=== PATIENT | male | born 1970 | race Caucasian/White ===

== ENCOUNTER 2024-04-14 11:33 | Outpatient (OUT) | payer MEDICARE, SELFPAY ==
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
== END 2024-04-14 11:34 | disposition home or self-care (01) ==
LOC: PM 11:35
PROVIDERS: PCP Nurse Practitioner Family; Visit Provider Anesthesiology
DX: M47.816 Spondylosis without myelopathy or radiculopathy, lumbar region (principal); M47.814 Spondylosis without myelopathy or radiculopathy, thoracic region; M48.02 Spinal stenosis, cervical region
CPT/HCPCS: G0463

== ENCOUNTER 2024-04-28 13:49 | Outpatient (OUT) | payer MEDICARE, SELFPAY ==
--- NOTE | 2024-04-28 15:09 | P.CN_ITS ---
Consult Note: HPI Data of Consult Patient: known to practice within the last 3 years Consult date: 04/28/24 Requesting Physician: Danica Conklin MD Primary Care Provider: Meg Lynn Consult Narrative Reason for consult: neck pain, bilateral arm pain, low back pain Narrative: 53yom who presents for assessment. worsening neck and bilateral upper extremity pain. imaging reviewed, which is consistent with stenosis at c5-6. also recently was in ED for a fall at home. landed on his back and states that he worries something happened to his SCS battery, as it has not been working as before. battery has not been assessed yet by [employer] rep. has continued in chiropractic therapy >6 weeks, without benefit. uses tramadol. denies adverse med side effects. cc:: CC: Danica Conklin MD Review of Systems ROS Status of ROS 10 or more systems reviewed and unremark able except as noted in history and below Meds Home Medications and Allergies Home Medications ?Medication ?Instructions ?Recorded ?Confirmed ?Type amitriptyline 50 mg tablet 50 mg PO DAILY 04/14/24 04/14/24 History amlodipine 2.5 mg tablet 2.5 mg PO DAILY 04/14/24 04/14/24 History atorvastatin 40 mg tablet 40 mg PO DAILY 04/14/24 04/14/24 History cholecalciferol (vitamin D3) 50 10,000 unit PO QWEEK 04/14/24 04/14/24 History mcg (2,000 unit) capsule (D3-2000) fenofibrate 54 mg tablet 54 mg PO DAILY 04/14/24 04/14/24 History ferrous sulfate 325 mg (65 mg 325 mg PO DAILY 04/14/24 04/14/24 History iron) tablet (Feosol) fexofenadine 180 mg tablet 180 mg PO DAILY 04/14/24 04/14/24 History ogyirx-zfvniezo-pbpnxxo 1 cap PO TID 04/14/24 04/14/24 History 36,000-114,000-180,000 unit capsule,delay rel (Creon) mepolizumab 100 mg/mL subcutaneous mg subcut .MONTHLY 04/14/24 History syringe (Nucala) metformin 500 mg tablet 500 mg PO DAILY 04/14/24 04/14/24 History montelukast 10 mg tablet 10 mg PO DAILY 04/14/24 04/14/24 History omeprazole 40 mg capsule,delayed 40 mg PO DAILY 04/14/24 04/14/24 History release prazosin 1 mg capsule 1 mg PO DAILY 04/14/24 04/14/24 History tramadol 100 mg capsule 100 mg PO DAILY 04/14/24 04/14/24 History 24h,extended release(25-75) tramadol 50 mg tablet 100 mg PO BID 04/14/24 04/14/24 History vitamin B complex (Vitamins B 1 cap PO DAILY 04/14/24 04/14/24 History Complex capsule) ziprasidone HCl 40 mg capsule 40 mg PO .QD 04/14/24 04/14/24 History tramadol 100 mg tablet,extended 100 mg PO DAILY PRN pain #30 tabs 04/23/24 Rx release 24 hr tramadol 50 mg tablet 100 mg (2 x 50 mg) PO BID PAIN 04/23/24 Rx #120 tabs Allergies Allergy/AdvReac Type Severity Reaction Status Date / Time acetaminophen [From Tylenol] Allergy Mild Hives Verified 04/14/24 15:54 codeine Allergy Mild Hives Verified 04/14/24 15:54 ibuprofen Allergy Mild Hives Verified 04/14/24 15:54 naproxen [From Aleve] Allergy Mild Vomiting Verified 04/14/24 15:54 ondansetron [From Zofran] Allergy Mild Hives Verified 04/14/24 15:54 Exam Narrative Exam Narrative: Psych-alert and oriented x 3.? Attentive and appropriate, constitutionally normal, displays normal mood and affect per situation.? There are no obvious deficits in memory, reasoning, or intellect.? Skin-no obvious rashes, bruising, or erythema noted to the patient's area of pain.? Extremities-upper extremities are warm with minimal edema and palpable pulses. Cervical- tenderness to palpation noted in the cervical spine and paraspinal musculature.? Pain is elicited with flexion, extension, and lateral rotation of the cervical spine.? Range of motion is diminished due to pain. Facet loading maneuvers are positive.? Strength-unremarkable and within normal limits with the exception to the bila teral biceps. Sensory-no notable sensory deficits in the bilateral upper extremities to touch or pinprick with the exception to decreased sensation to the bilateral C5, 6 dermatomal distribution.? Coordination remains intact.? Gait remains non-antalgic. Assessment and Plan Assessment and Plan (1) Cervical stenosis of spinal canal: Plan 53yom who presents for assessment. failed conservative measures, as noted. in terms of neck pain, given symptoms and imaging, will attempt bilateral c5-6 tfes i under fluoroscopic guidance. he is in agreement. in terms of battery issues, will have him meet up with [facility] to assess. he expressed understanding. meds reviewed, no changes. follow up after procedure.
== END 2024-04-28 13:50 | disposition home or self-care (01) ==
LOC: PM 13:49
PROVIDERS: PCP Nurse Practitioner Family; Visit Provider Anesthesiology
DX: M48.02 Spinal stenosis, cervical region (principal)
CPT/HCPCS: G0463

== ENCOUNTER 2024-05-12 09:03 | Day surgery (SDC) | payer MEDICARE, SELFPAY ==
[2024-05-12 10:49] VITALS: BP 124/83; PULSE 74; TEMP 36.6; O2SAT 99
[2024-05-12 11:01] LABS: Glucometer 118 mg/dL (74-106)
[2024-05-12 11:20] VITALS: BP 126/80; BP 130/84; PULSE 75; PULSE 78; O2SAT 96
--- NOTE | 2024-05-12 11:23 | W.PM.PROCNOT ---
Date of procedure: 05/12/24 Pre-op diagnosis: Pain due to cervical radiculopathy Post-op diagnosis: same as pre-op Procedure: Procedure: Bilateral C5-6 transforaminal epidural steroid injection Medications: Bupivacaine 0.25% 1cc, lidocaine 2% 1cc, dexamethasone 10mg The patient was seen and examined in the preoperative holding area.? Informed consent was obtained and placed on the chart.? Patient was brought to the medical procedure unit and placed in the prone position where a timeout was completed verifying the correct patient, procedure site, position, and planned special equipment using sterile aseptic technique.? Under direct fluoroscopic visualization a 25-gauge Quincke tipped spinal needle was advanced at level left C5-6 to the designated neural foramen where contrast dye was injected to show adequate spread.? There was no evidence of vascular or adverse uptake.? Epidural spread was appreciated.? The above-mentioned injectate was then placed in a 1.5 mL aliquot preceded by negative aspiration.? The needle was removed. The same procedure, at the same level, was completed on the opposite side. ? Patient was taken to the postprocedural recovery area and monitored for an appropriate length of time before found suitable for discharge in the accompaniment of a responsible adult. Anesthesia: Local Surgeon: Danica Conklin Pathology: none sent Condition: stable Disposition: no change
[2024-05-12] MEDS: BUPIVACAINE HCL 0.25% PF 25 MG/10 ML VIAL INJ (11:24)
[2024-05-12] MEDS: IOHEXOL 240 MG/ML - 10 ML VIAL 24 MG INJ (11:25)
[2024-05-12] MEDS: LIDOCAINE HCL 2% 400 MG/20 ML MDV 3 ML INJ (11:25)
[2024-05-12] MEDS: DEXAMETHASONE SOD PHOS 10 MG/ML VIAL INJ (11:25)
== END 2024-05-12 11:31 | disposition home or self-care (01) ==
PROVIDERS: PCP Nurse Practitioner Family; Visit Provider Anesthesiology
DX: M54.12 Radiculopathy, cervical region (principal); Z79.84 Long term (current) use of oral hypoglycemic drugs
CPT/HCPCS: 36415; 64479; 82948; J0665; J1100; Q9966

== ENCOUNTER 2024-05-22 11:09 | Outpatient (OUT) | payer MEDICARE, SELFPAY ==
--- NOTE | 2024-05-22 11:34 | P.CN_ITS ---
Consult Note: HPI Data of Consult Patient: known to practice within the last 3 years Consult date: 04/28/24 Requesting Physician: Vanessa Chavez NP Primary Care Provider: Meg Lynn Consult Narrative Reason for consult: neck pain, bilateral arm pain, low back pain Narrative: 53yom who presents for assessment. worsening neck and bilateral upper extremity pain. imaging reviewed, which is consistent with stenosis at c5-6. has continued in chiropractic therapy >6 weeks, without benefit. uses tramadol. denies adverse med side effects. recent bilateral C5-6 TFESI >50% improvement ongoing. Patient reports SCS providing mild relief at this time, feels that there is no issue with the device it has reset itself. cc:: CC: Vanessa Chavez NP Review of Systems ROS Status of ROS 10 or more systems reviewed and unremark able except as noted in history and below Musculoskeletal Reports: back pain and neck pain Meds Home Medications and Allergies Home Medications ?Medication ?Instructions ?Recorded ?Confirmed ?Type amitriptyline 50 mg tablet 50 mg PO DAILY 04/14/24 05/12/24 History amlodipine 2.5 mg tablet 2.5 mg PO DAILY 04/14/24 05/12/24 History atorvastatin 40 mg tablet 40 mg PO DAILY 04/14/24 05/12/24 History cholecalciferol (vitamin D3) 50 10,000 unit PO QWEEK 04/14/24 05/12/24 History mcg (2,000 unit) capsule (D3-2000) fenofibrate 54 mg tablet 54 mg PO DAILY 04/14/24 05/12/24 History ferrous sulfate 325 mg (65 mg 325 mg PO DAILY 04/14/24 05/12/24 History iron) tablet (Feosol) fexofenadine 180 mg tablet 180 mg PO DAILY 04/14/24 05/12/24 History fcaxnj-uzpctswt-ljwkuou 1 cap PO TID 04/14/24 05/12/24 History 36,000-114,000-180,000 unit capsule,delay rel (Creon) mepolizumab 100 mg/mL subcutaneous mg subcut .MONTHLY 04/14/24 History syringe (Nucala) metformin 500 mg tablet 500 mg PO DAILY 04/14/24 05/12/24 History montelukast 10 mg tablet 10 mg PO DAILY 04/14/24 05/12/24 History omeprazole 40 mg capsule,delayed 40 mg PO DAILY 04/14/24 05/12/24 History release prazosin 1 mg capsule 1 mg PO DAILY 04/14/24 05/12/24 History tramadol 100 mg capsule 100 mg PO DAILY 04/14/24 05/12/24 History 24h,extended release(25-75) tramadol 50 mg tablet 100 mg PO BID 04/14/24 05/12/24 History vitamin B complex (Vitamins B 1 cap PO DAILY 04/14/24 05/12/24 History Complex capsule) ziprasidone HCl 40 mg capsule 40 mg PO .QD 04/14/24 05/12/24 History tramadol 100 mg tablet,extended 100 mg PO DAILY PRN pain #30 tabs 04/23/24 05/12/24 Rx release 24 hr tramadol 50 mg tablet 100 mg (2 x 50 mg) PO BID PAIN 04/23/24 05/12/24 Rx #120 tabs tramadol 100 mg tablet,extended 100 mg PO DAILY PRN pain #30 tabs 05/22/24 Rx release 24 hr tramadol 50 mg tablet 100 mg (2 x 50 mg) PO BID PRN pain 05/22/24 Rx #120 tabs Allergies Allergy/AdvReac Type Severity Reaction Status Date / Time acetaminophen [From Tylenol] Allergy Mild Hives Verified 05/12/24 10:46 codeine Allergy Mild Hives Verified 05/12/24 10:46 ibuprofen Allergy Mild Hives Verified 05/12/24 10:46 naproxen [From Aleve] Allergy Mild Vomiting Verified 05/12/24 10:46 ondansetron [From Zofran] Allergy Mild Hives Verified 05/12/24 10:46 Exam Narrative Exam Narrative: Psych-alert and oriented x 3.? Attentive and appropriate, constitutionally normal, displays normal mood and affect per situation.? There are no obvious deficits in memory, reasoning, or intellect.? Skin-no obvious rashes, bruising, or erythema noted to the patient's area of pain.? Extremities-upper extremities are warm with minimal edema and palpable pulses. Cervical- tenderness to palpation noted in the cervical spine and paraspinal musculature.? Pain is elicited with flexion, extension, and lateral rotation of the cervical spine.? Range of motion is diminished due to pain. Facet loading maneuvers are positive.? Strength-unremarkable and within normal limits with the exception to the bilateral biceps. Sensory-no notable sensory deficits in the bilateral upper extremities to touch or pinprick Coordination remains intact.? Gait remains non-antalgic. Results Additional Findings Additional findings: If on a controlled substance or opioids, I have checked an [place] report on this patient and there are no aberrancies noted in the prescribing history.??If on a controlled substance or opioid a drug screen was completed and reviewed within the last year, and if there has not been a drug screen completed we ordered one today to monitor higher risk, state monitored pain medication use. As part of providing excellent, safe, comprehensive care, the following was completed at our patient's visit: 1. A medication reconciliation and review to ensure accurate knowledge of current/active medications, including asking our patients to inform us about any afqo-lrx-czgweav medications or herbal remedies/nutritional supplements/alternative remedies. 2. A review to specifically ensure our patients have had annual screening for screening for depression, screening for tobacco use, and screening for unhealthy alcohol use. For concerning screenings had a discussion with the patient, provided patient education, and recommended follow-up with primary care provider when appropriate. If patient noted with a risk of falling, they received education on strength, gait, and balance training to prevent future risk of falling. Assessment and Plan Assessment and Plan (1) Cervical stenosis of spinal canal: (2) Chronic use of opiate drug for therapeutic purpose: (3) Lumbar spondylosis: (4) Thoracic spondylosis: (5) Failed back syndrome: (6) Insomnia: (7) PTSD (post-traumatic stress disorder): (8) Chronic prescription benzodiazepine use: Plan risks vs benefits of current medication regimen discussed, patient has been on his current regimen for many years without side effects. patient has narcan available at home. Patient is on clonazepam 1/2-1mg HS due to chronic severe insomnia refractory to multiple medications and it is his only relief to assist in sleep. Patient has failed numerous non opioid medications and has had back surgery and spinal cord stimulator placed yet continues to have moderate to severe pain requiring opioids. continue current medication regimen continue f/u with [facility] for spinal cord stimulator setting adjustments continue f/u with oncology team f/u 3 months, sooner if needed
== END 2024-05-22 11:10 | disposition home or self-care (01) ==
PROVIDERS: PCP Nurse Practitioner Family; Visit Provider Nurse Practitioner
DX: M48.02 Spinal stenosis, cervical region (principal); Z79.891 Long term (current) use of opiate analgesic; M47.816 Spondylosis without myelopathy or radiculopathy, lumbar region; M47.814 Spondylosis without myelopathy or radiculopathy, thoracic region; M96.1 Postlaminectomy syndrome, not elsewhere classified; G47.00 Insomnia, unspecified; F43.10 Post-traumatic stress disorder, unspecified; Z79.899 Other long term (current) drug therapy
CPT/HCPCS: G0463

== ENCOUNTER 2024-08-27 10:31 | Outpatient (OUT) | payer MEDICARE, SELFPAY ==
--- NOTE | 2024-08-27 12:25 | PM.CN ---
Consult Note: HPI Data of Consult Patient: known to practice within the last 3 years Consult date: 04/28/24 Requesting Physician: Vanessa Chavez NP Primary Care Provider: Meg Lynn Consult Narrative Reason for consult: neck pain, bilateral arm pain, low back pain Narrative: 53yom who presents for assessment. worsening neck and bilateral upper extremity pain. imaging reviewed, which is consistent with stenosis at c5-6. has continued in chiropractic therapy >6 weeks, without benefit. uses tramadol. denies adverse med side effects. recent bilateral C5-6 TFESI >50% improvement ongoing. Patient reports SCS providing mild relief at this time, feels that there is no issue with the device it has reset itself. upcoming pancreatectomy/potential spleenectomy tomorrow with [facility], expects to be hospitalized for 1 week. cc:: CC: Vanessa Chavez NP Review of Systems ROS Status of ROS 10 or more systems reviewed and unremarkable except as noted in history and below Musculoskeletal Reports: back pain, neck pain and extremity pain Meds Home Medications and Allergies Home Medications ?Medication ?Instructions ?Recorded ?Confirmed ?Type amitriptyline 50 mg tablet 50 mg PO DAILY 04/14/24 05/12/24 History amlodipine 2.5 mg tablet 2.5 mg PO DAILY 04/14/24 05/12/24 History atorvastatin 40 mg tablet 40 mg PO DAILY 04/14/24 05/12/24 History cholecalciferol (vitamin D3) 50 10,000 unit PO QWEEK 04/14/24 05/12/24 History mcg (2,000 unit) capsule (D3-2000) fenofibrate 54 mg tablet 54 mg PO DAILY 04/14/24 05/12/24 History ferrous sulfate 325 mg (65 mg 325 mg PO DAILY 04/14/24 05/12/24 History iron) tablet (Feosol) fexofenadine 180 mg tablet 180 mg PO DAILY 04/14/24 05/12/24 History oftjqe-infobaqt-cimtods 1 cap PO TID 04/14/24 05/12/24 History 36,000-114,000-180,000 unit capsule,delay rel (Creon) mepolizumab 100 mg/mL subcutaneous mg subcut .MONTHLY 04/14/24 History syringe (Nucala) metformin 500 mg tablet 500 mg PO DAILY 04/14/24 05/12/24 History montelukast 10 mg tablet 10 mg PO DAILY 04/14/24 05/12/24 History omeprazole 40 mg capsule,delayed 40 mg PO DAILY 04/14/24 05/12/24 History release prazosin 1 mg capsule 1 mg PO DAILY 04/14/24 05/12/24 History vitamin B complex (Vitamins B 1 cap PO DAILY 04/14/24 05/12/24 History Complex capsule) ziprasidone HCl 40 mg capsule 40 mg PO .QD 04/14/24 05/12/24 History tramadol 100 mg tablet,extended 100 mg PO DAILY PRN pain #30 tabs 05/22/24 Rx release 24 hr tramadol 100 mg tablet,extended 100 mg PO DAILY PRN pain #30 tabs 05/22/24 Rx release 24 hr tramadol 50 mg tablet 100 mg (2 x 50 mg) PO BID PRN pain 05/22/24 Rx #120 tabs tramadol 100 mg tablet,extended 100 mg PO .HS PRN pain #30 tabs 06/24/24 Rx release 24 hr tramadol 50 mg tablet See Rx Instructions .Route 06/24/24 Rx .COMPLEX PRN pain #120 tabs tramadol 100 mg tablet,extended 100 mg PO DAILY #30 tabs 07/24/24 Rx release 24 hr tramadol 50 mg tablet 100 mg (2 x 50 mg) PO BID PRN pain 07/24/24 Rx #120 tabs Allergies Allergy/AdvReac Type Severity Reaction Status Date / Time acetaminophen (From Tylenol) Allergy Mild Hives Verified 05/12/24 10:46 codeine Allergy Mild Hives Verified 05/12/24 10:46 ibuprofen Allergy Mild Hives Verified 05/12/24 10:46 naproxen (From Aleve) Allergy Mild Vomiting Verified 05/12/24 10:46 ondansetron (From Zofran) Allergy Mild Hives Verified 05/12/24 10:46 Exam Narrative Exam Narrative: Psych-alert and oriented x 3.? Attentive and appropriate, constitutionally normal, displays normal mood and affect per situation.? There are no obvious deficits in memory, reasoning, or intellect.? Skin-no obvious rashes, bruising, or erythema noted to the patient's area of pain.? Extremities-upper extremities are warm with minimal edema and palpable pulses. Cervical- tenderness to palpation noted in the cervical spine and paraspinal musculature.? Pain is elicited with flexion, extension, and lateral rotation of the cervical spine.? Range of motion is diminished due to pain. Facet loading maneuvers are positive.? Strength-unremarkable and within normal limits with the exception to the bilateral biceps. Sensory-no notable sensory deficits in the bilateral upper extremities to touch or pinprick Coordination remains intact.? Gait remains non-antalgic. Results Additional Findings Additional findings: If on a controlled substance or opioids, I have checked an [place] report on this patient and there are no aberrancies noted in the prescribing history.??If on a controlled substance or opioid a drug screen was completed and reviewed within the last year, and if there has not been a drug screen completed we ordered one today to monitor higher risk, state monitored pain medication use. As part of providing excellent, safe, comprehensive care, the following was completed at our patient's visit: 1. A medication reconciliation and review to ensure accurate knowledge of current/active medications, including asking our patients to inform us about any [id number] medications or herbal remedies/nutritional supplements/alternative remedies. 2. A review to specifically ensure our patients have had annual screening for screening for depression, screening for tobacco use, and screening for unhealthy alcohol use. For concerning screenings had a discussion with the patient, provided patient education, and recommended follow-up with primary care provider when appropriate. If patient noted with a risk of falling, they received education on strength, gait, and balance training to prevent future risk of falling. Assessment and Plan Assessment and Plan (1) Cervical stenosis of spinal canal: (2) Chronic use of opiate drug for therapeutic purpose: (3) Lumbar spondylosis: (4) Thoracic spondylosis: (5) Failed back syndrome: (6) Insomnia: (7) PTSD (post-traumatic stress disorder): (8) Chronic prescription benzodiazepine use: Plan risks vs benefits of current medication regimen discussed, patient has been on his current regimen for many years without side effects. patient has narcan available at home. Patient is on clonazepam 1/2-1mg HS due to chronic severe insomnia refractory to multiple medications and it is his only relief to assist in sleep. Patient has failed numerous non opioid medications and has had back surgery and spinal cord stimulator placed yet continues to have moderate to severe pain requiring opioids. continue current medication regimen continue f/u with [facility] for spinal cord stimulator setting adjustments PRN pt verbalized agreement to DC tramadol and allow surgeons to manage post-op pain, will call our office with updates on care plan f/u 6 weeks
== END 2024-08-27 10:32 | disposition home or self-care (01) ==
PROVIDERS: PCP Nurse Practitioner Family; Visit Provider Nurse Practitioner
DX: M48.02 Spinal stenosis, cervical region (principal); Z79.891 Long term (current) use of opiate analgesic; M47.816 Spondylosis without myelopathy or radiculopathy, lumbar region; M47.814 Spondylosis without myelopathy or radiculopathy, thoracic region; M96.1 Postlaminectomy syndrome, not elsewhere classified; G47.00 Insomnia, unspecified; F43.10 Post-traumatic stress disorder, unspecified
CPT/HCPCS: G0463

== ENCOUNTER 2024-10-08 09:56 | Outpatient (OUT) | payer MEDICARE, SELFPAY ==
--- OUTSIDE RECORDS SUMMARY | 2024-10-08 10:18 | XMS_ITS | CCD ---
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 Name Role Phone DEMARCUS REID Primary Care Unavailable JEANETTE, DEMARCUS Primary Care Unavailable JEANETTE, DEMARCUS Primary Care Unavailable JEANETTE, DEMARCUS Primary Care Unavailable JEANETTE, DEMARCUS Primary Care Unavailable JEANETTE, DEMARCUS Primary Care Unavailable JEANETTE, DEMARCUS Primary Care Unavailable JEANETTE, DEMARCUS Primary Care Unavailable JEANETTE, DEMARCUS Primary Care Unavailable JEANETTE, DEMARCSU Primary Care Unavailable JEANETTE, DEMARCUS Primary Care Unavailable JEANETTE, DEMARCUS Primary Care Unavailable JEANETTE, DEMARCUS Primary Care Unavailable Gian CARROTER - Eliana MUSTAFA Primary Care Provid er Eliana Morales Primary Care Provider CHAYITO, JOANA N Attending Unavailable GIAN, ELIANA Palomo Referring Unavailable GIAN, ELIANA Palomo Primary Care Unavailable MOGHAL, JOANA N Admitting Unavailable MOGHAL, JOANA N Attending Unavailable MOGHAL, JOANA N Referring Unavailable GIAN, ELIANA Palomo Primary Care Unavailable MOGHAL, JOANA N Attending Unavailable MOGHAL, JOANA N Referring Unavailable GIAN, ELIANA Palomo Primary Care Unavailable MIGDALIA ART Attending Unavailable GIAN, ELIANA Palomo Primary Care Unavailable MOGHAL, JOANA N Attending Unavailable GIAN, ELIANA Palomo Referring Unavailable GIAN, ELIANA Palomo Primary Care Unavailable MOGHAL, JOANA N Attending Unavailable MOGHAL, JOANA N Referring Unavailable GIAN, ELIANA Palomo Primary Care Unavailable FABIOLA ROMANO Attending Unavailable GIAN, ELIANA Palomo Referring Unavailable GIAN, ELIANA Palomo Primary Care Unavailable FABIOLA ROMANO Attending Unavailable GIAN, ELIANA Palomo Referring Unavailable GIAN, ELIANA Palomo Primary Care Unavailable MOGHAL, JOANA N Admitting Unavailable MOGHAL, JOANA N Attending Unavailable MOGHAL, JOANA N Referring Unavailable GIAN, ELIANA Palomo Primary Care Unavailable MOGHAL, JOANA N Attending Unavailable MOGHAL, JOANA N Referring Unavailable GIAN, ELIANA Palomo Primary Care Unavailable MOGHAL, JOANA N Referring Unavailable GIAN, ELIANA Palomo Primary Care Unavailable MOGHAL, JOANA N Attending Unavailable GIAN, ELIANA Palomo Referring Unavailable GIAN, ELIANA Palomo Primary Care Unavailable FABIOLA ROMANO M Referring Unavailable GIAN, ELIANA Palomo Primary Care Unavailable ANNALISE, LAURI Romero Admitting Unavailable ANNALISE, LAURI Romero Attending Unavailable REF PROV, NOT IN SYSTEM Referring Unavaila ble GIAN, ELIANA Palomo Primary Care Unavailable BASISTA, LAURI Harper Consulting Unavailable Gian [facility] Primary Care Unava ilable Mickie REARDON, Rob Villagomez Attending Unavailable Gian [facility] Primary Care Unava ilable Mickie REARDON, Rob Villagomez Attending Unavailable Gian [facility] Primary Care Unava ilable Samson REARDON, Wesly Crawford Attending Unavailable Gian [facility] Primary Care Unava ilable Jm REARDON, Jacqueline Ruiz Attending Mariajosevai getachew Schultz MD, Benoit Nagy Consulting Ethani getachew Schilling MD, Adelina Consulting Unavailable [facility] Primary Care Unava ilable Samson REARDON, Wesly Crawford Attending Unavailable Gian [facility] Primary Care Unava ilable Rubin REARDON, Danica Arnold Attending Unavailable [facility] Primary Care Unava ilable Rubin REARDON, Danica Arnold Attending Unavailable Rubin REARDON, Danica Arnold Attending Unavailable [facility] Primary Care Unava ilable GIAN, ELIANA Palomo Referring Unavailable GIAN, ELIANA Palomo Primary Care Unavailable Cristal Paul Attending Unavailable LUIS F APONTE Admitting Unavailable LUIS F APONTE Attending Unavailable WESLY DAVIES Referring Unavailable Gian [facility] Primary Care [facility] er Samson REARDON, Wesly Crawford Unavailable [phone] Wesly Davies MD Unavailable Gian [facility], [facility] Primary Care Provider GIAN, ELIANA Palomo Primary Care Unavailable LISET TEGAN Henao Attending Unavailable GIAN, ELIANA Palomo Primary Care Unavailable SHE MEAD Referring Unavailable GIAN, ELIANA Palomo Referring Unavailable GIAN, ELIANA Palomo Primary Care Unavailable MAX DELONG JR Attending Unavailable GIAN, ELIANA Palomo Primary Care Unavailable GIAN, ELIANA Palomo Primary Care Unavailable GIAN, ELIANA Palomo Primary Care Unavailable DARIUSZ LAMBERT Attending Unavailable KRISTYN MILLER Attending Unavailable GIAN, ELIANA Palomo Primary Care Unavailable OCTAVIO CHATTERJEE Referring Unavailable GIAN, ELIANA L Primary Care Unavailable GIAN, ELIANA Palomo Primary Care Unavailable LAUREN GUTIERREZ Referring Unavailable GIAN, ELIANA Palomo Primary Care Unavailable MIGHT, SARY Romero Referring Unavailable GIAN, ELIANA Palomo Primary Care Unavailable MIGHTSARY Referring Unavailable GIAN, ELIANA Palomo Primary Care Unavailable GIAN, ELIANA L Referring Unavailable GIAN, ELIANA Palomo Primary Care Unavailable GIAN, ELIANA Palomo Referring Unavailable GIAN, ELIANA Palomo Primary Care Unavailable GIAN, ELIANA Palomo Referring Unavailable IACOBIRVIN Admitting Unavailable IACIRVIN PARKER Attending Unavailable GIAN, ELIANA Palomo Primary Care Unavailable SOFIA SMITH Attending Unavailable GIAN, ELIANA Palomo Primary Care Unavailable GIAN, ELIANA Palomo Primary Care Unavailable GIAN, ELIANA Palomo Primary Care Unavailable GIEDRAITIS, ANDRIUS Referring Unavailable GIAN, ELIANA Palomo Primary Care Unavailable SOFIA SMITH Attending Unavailable GIAN, ELIANA Palomo Primary Care Unavailable MANJITTAMIKO BRITO Admitting Unavailable TAMIKO SARAVIA Attending Unavailable GIAN, ELIANA Palomo Primary Care Unavailable DAMION BRAVO Attending Unavailable KAJAL STEWART Attending Unavailable JACOSBON, R KASSIDY Referring Unavailable JACOBSON, R KASSIDY Referring Unavailable JACOBSON, R KASSIDY Attending Unavailable JACOBSON, R KASSIDY Attending Unavailable JACOBSON, R KASSIDY Admitting Unavailable GIAN, ELIANA Palomo Primary Care Unavailable GIAN, ELIANA Palomo Primary Care Unavailable JACOBSON, R KASSIDY Attending Unavailable MODESTO DUNLAP Referring Unavailable GIAN, ELIANA Palomo Primary Care Unavailable DAMION BRAVO Attending Unavailable JACOBSON, R KASSIDY Referring Unavailable EMILEE SUAREZ Attending Unavaila ble GIAN, ELIANA Palomo Primary Care Unavailable JACOBSON, R KASSIDY Referring Unavailable IGAN, ELIANA Palomo Primary Care Unavailable JACOBSON, R KASSIDY Referring Unavailable GIAN, ELIANA Palomo Primary Care Unavailable GIAN, ELIANA Palomo Primary Care Unavailable JACOBSON, R KASSIDY Referring Unavailable GIAN, ELIANA Palomo Primary Care Unavailable JACOBSON, R KASSIDY Referring Unavailable ELIANA SPRINGER Primary Care Unavailable Jesus JACOBSON Referring Unavailable Allergies Allergy Classification Reported Allergen(s) Allergy Type Date of Onset Reaction(s) Facility Acetaminophen / Codeine (2 sources) Acetaminophen / Codeine Drug Allergy 4 Hives [facility] Cat Hair Extract (2 sources) Cat Hair Extract Drug Allergy 0 [facility] Work Phone: NSAIDs (2 sources) Ibuprofen Drug Allergy 4 Diarrhea [facility] Ondansetron (2 sources) Ondansetron Drug Allergy 9 Anaphylaxis [facility] Opioid Agonists (2 sources) Codeine Drug Allergy 8 Hives, Nausea And Vomiting [facility] Work Phone: (12 sources) Cat Hair Extract Drug Allergy 0 [facility] Work Phone: (20 sources) Codeine; Translations: [CODEINE] Drug Allergy 8 Hives, Nausea And Vomiting [facility] Work Phone: (20 sources) Ondansetron; Translations: [ONDANSETRON HCL] Drug Allergy 9 Nausea Only, Anaphylaxis [facility] (14 sources) Acetaminophen / Codeine; Translations: [ACETAMINOPHEN-CO DEINE] Drug Allergy 4 Hives, Other (See Comments) [facility] (14 sources) Ibuprofen; Translations: [IBUPROFEN] Drug Allergy 4 Other (See Comments), Diarrhea [facility] (1 source) Cat; Translations: [Cats] Propensity to adverse reactions (disorder) [facility] Repository (1 source) Ondansetron; Translations: [Zofran] Drug Allergy [facility] Rep[facility] (20 sources) Ondansetron; Translations: [ONDANSETRON] Drug Allergy 1 Hives [facility] Repository Medications Current Medications Medication Drug Class(es) Dates Sig (Normalized) Sig (Original) acetaminophen 325 mg / HYDROcodone bitartrate 5 mg oral tablet (1 source) Opioid Agonist Start: 08-11-2024 End: 08-14-2024 HYDROcodone-aceta minophen (NORCO) 5-325 MG per tablet Indications: Left-sided chest wall pain , Rib contusion, left, sequela Take 1 tablet by mouth every 8 hours as needed for Pain (moderate severe) for up to 3 days. Intended supply: 7 days. Take lowest dose possible to manage pain Max Daily Amount: 3 tablets 9 tablet 08/11/2024 08/14/2024 Active albuterol 0.83 mg/ml inhalation solution (20 sources) beta2-Adrenergic Agonist Start: 07-03-2024 take 2.5 mg by inhalation every four hours as needed albuterol (PROVENTIL) 2.5 mg /3 mL (0.083 %) nebulizer solution Use 2.5 mg via nebulizer every 4 hours as needed. 07/03/2024 Active Start: 03-25-2024 take 2 puff(s) by in halation every six hours as needed ProAir RespiClick 90 mcg/actuation breath activated (albuterol sulfate) 2 puffs, Inhale, q6hr, PRN, # 1 EA, 0 Refill(s), Pharmacy: [email or web address] [place] [address] 03/25/2024 Active Start: 02-06-2024 take 2 puff(s) by in halation every six hours as needed albuterol sulfate (PROAIR RESPICLICK) 108 (90 Base) MCG/ACT aerosol powder inhalation Indications: Asthma, unspecified asthma severity, unspecified whether complicated, unspecified whether persistent 2 puffs, Inhale, q6hr, PRN, # 1 EA, 0 Refill(s), Pharmacy: [facility] 1 each 0 02/06/2024 Active Start: 10-03-2021 take 1 puff(s) by in halation every six hours as needed VENTOLIN HFA 90 mcg/actuation inhaler Inhale 1 Puff as instructed every 6 hours as needed. 10/03/2021 Active Start: 12-13-2018 take 2 puff(s) by in halation every six hours as needed albuterol sulfate (PROAIR RESPICLICK) 108 (90 Base) MCG/ACT aerosol powder inhalation 2 puffs, Inhale, q6hr, PRN, # 1 EA, 0 Refill(s), Pharmacy: [address] 1 Inhaler 0 12/13/2018 Active amitriptyline hydrochloride 50 mg oral tablet (20 sources) Tricyclic Antidepressant Start: 01-23-2018 take 1 tablet by mouth once daily at bedtime amitriptyline (ELAVIL) 50 mg tablet Take 1 tablet by mouth daily at bedtime. 01/23/2018 Active amLODIPine 2.5 mg oral tablet (20 sources) Dihydropyridine Calcium Channel Kandi Start: 10-31-2021 take 1 tablet by mouth once daily amLODIPine (NORVASC) 2.5 mg tablet Take 1 tablet by mouth once daily. 10/31/2021 Active AMLODIPINE BESYLATE, BULK, MISC (6 sources) AMLODIPINE BESYLATE, BULK, MISC by miscellaneous route. 0 Active amoxicillin 875 mg / clavulanate 125 mg oral tablet (1 source) Penicillin-class Antibacterial Start: 01-25-2024 take 1 tablet by mouth twice daily amoxicillin-clavul anate (AUGMENTIN) 875-125 MG per tablet Take 1 tablet by mouth 2 times daily 0 01/25/2024 Active amylase 495932 unt / lipase 25503 unt / protease 969213 unt delayed release oral capsule (20 sources) Start: 08-04-2024 ujldrb-souxalfg-wy ylase (CREON 36) 36,000-114,000- 180,000 unit delayed release capsule Take 3 caps by mouth 3 times daily with meals and 1 cap with each snack (2) 330 capsule 11 08/04/2024 Active Start: 02-08-2024 take 1 capsule by n[place] ut once daily awuwuv-jroeakie-cvcxzuf (CREON) 41765-659563 units CPEP delayed release capsule Indications: Chronic pancreatitis, unspecified pancreatitis type (HCC) , Medication refill Creon 39596 units oral delayed release capsule: TAKE 2 CAPSULES WITH MEALS (3 TIMES A DAY) AND 1 CAPSULE WITH SNACKS (1 DAILY). 200 capsule 1 02/08/2024 Active Start: 01-03-2024 take 1 capsule by mo uth once daily qnrbyj-zdadmavv-dczefbw (CREON) 36675-322749 units CPEP delayed release capsule Indications: Chronic pancreatitis, unspecified pancreatitis type (HCC) , Medication refill Creon 37884 units oral delayed release capsule: TAKE 2 CAPSULES WITH MEALS (3 TIMES A DAY) AND 1 CAPSULE WITH SNACKS (1 DAILY). 180 capsule 1 01/03/2024 Active Start: 11-12-2023 take 1 capsule by [facility] once daily ogoacg-ghcdtlhe-wnoaarv (CREON) 49837-897030 units CPEP delayed release capsule Indications: Chronic pancreatitis, unspecified pancreatitis type (HCC) , Medication refill Creon 63982 units oral delayed release capsule: TAKE 2 CAPSULES WITH MEALS (3 TIMES A DAY) AND 1 CAPSULE WITH SNACKS (1 DAILY). 180 capsule 0 11/12/2023 Active Start: 05-24-2023 take 1 capsule by [facility] three times daily at mealtime bdkhxd-fndanrvu-dgxisys (CREON) 24802-770766 units CPEP delayed release capsule Take 1 capsule by mouth 3 times daily (with meals) 180 capsule 0 05/24/2023 Active atorvastatin 40 mg oral tablet (20 sources) HMG-CoA Reductase Inhibitor Start: 01-03-2021 take 1 tablet by mouth once daily atorvastatin (LIPITOR) 40 mg tablet Take 1 tablet by mouth once daily. 01/03/2021 Active azelastine hydrochloride 0.137 mg/actuat metered dose nasal spray (20 sources) Histamine-1 Receptor Antagonist take 1 spray(s) nasal route twice daily azelastine 0.1% nasal spray Use 1 [place] in each nostril two times a day. Active b complex vitamins capsule (14 sources) take 1 capsule by mouth once daily b complex vitamins capsule Take 1 capsule by mouth daily Active take 1 capsule by mouth once gaudencio [address] b complex vitamins capsule Take 1 capsule by mouth daily 0 Active B-complex with vitamin C (ALLBEE WITH C) tablet (20 sources) take 1 tablet by rhianna th once daily in the morning B-complex with vitamin C (ALLBEE WITH C) tablet Take 1 tablet by mouth every morning. Suspended take 1 tablet by rhianna th once daily in the morning B-complex with vitamin C (ALLBEE WITH C) tablet Take 1 tablet by mouth every morning. Active B-complex with vitamin C tablet (6 sources) take 1 tablet by mouth in the morning B-complex with vitamin C tablet Take 1 tablet by mouth in the morning. 0 Active bisacodyl 10 mg rectal suppository (14 sources) Stimulant Laxative Start: bisacodyl (DULCOLAX) 10 mg supp 1 Suppository by RECTAL route once daily as needed for constipation. 09/04/2024 Active Blood-Glucose Meter (20 sources) Start: Blood-Glucose Meter Indications: Post-pancreatectomy diabetes (HCC) Use to check sugars once a day 1 Each 08/22/2024 Suspended Start: 08-22-2024 Blood-Glucose Meter Indications: Post-pancreatectomy diabetes (HCC) Use to check sugars once a day 1 Each 08/22/2024 Active cholecalciferol 1.25 mg oral capsule (20 sources) Vitamin D Start: 06-18-2024 Cholecalcifero l (VITAMIN D3) 1.25 MG (70207 UT) CAPS Indications: Other fatigue Take 1 capsule by mouth once a week Patient takes 1 time weekly on Fridays 12 capsule 3 06/18/2024 Active Start: 11-13-2023 cholecalcifero l, Vitamin D3, (VITAMIN D3) 1,250 mcg (50,000 unit) cap capsule Take 50,000 Units by mouth. 11/13/2023 Active Start: 11-13-2023 Cholecalcifero l (VITAMIN D3) 1.25 MG (86341 UT) CAPS Take 1 capsule by mouth once a week Patient takes 1 time weekly on Fridays 12 capsule 3 11/13/2023 Active Cholecalciferol (VITAMIN D3) 1.25 MG (93616 UT) CAPS Take by mouth Patient takes 1 time weekly on Fridays 0 Active clonazePAM 0.5 mg oral tablet (20 sources) Benzodiazepine take 1 tablet by mouth every twelve hours as needed clonazePAM (KLONOPIN) 0.5 mg tablet Take 0.5 mg by mouth two times a day as needed. Active take 1 tablet by mouth once [place] clonazePAM (KLONOPIN) 0.5 MG tablet Take 1 tablet by mouth daily. morning Active clonazePAM (KLON OPIN) 1 MG tablet 2 tablets at bedtime. Active dicyclomine hydrochloride 20 mg oral tablet (9 sources) Anticholinergic Start: 04-03-2024 take 1 tablet by mouth three times daily dicyclomine (BENTYL) 20 MG tablet Indications: Diarrhea, unspecified type Take 1 tablet by mouth 3 times daily 30 tablet 04/03/2024 Active doxycycline hyclate 100 mg oral tablet (2 sources) Tetracycline-class Drug Start: 07-30-2024 End: 08-09-2024 take 1 tablet by mouth twice daily doxycycline hyclate (VIBRA-TABS) 100 MG tablet Indications: Acute non-recurrent pansinusitis Take 1 tablet by mouth 2 times daily for 10 days 20 tablet 07/30/2024 08/09/2024 Active ergocalciferol 1.25 mg oral capsule (9 sources) Provitamin D2 Compound Start: 06-17-2023 take 1 capsule by mouth every week vitamin D (ERGOCALCIFEROL) 1.25 MG (15876 UT) CAPS capsule Take 1 capsule by mouth once a week 0 06/17/2023 Active famotidine 20 mg oral tablet (10 sources) Histamine-2 Receptor Antagonist Start: 02-08-2024 take 1 tablet by mouth twice daily famotidine (PEPCID) 20 MG tablet Take 1 tablet by mouth 2 times daily 60 tablet 02/08/2024 Active fenofibrate 54 mg oral tablet (20 sources) Peroxisome Proliferator Receptor alpha Agonist Start: 06-28-2022 take 1 tablet by mouth once daily Fenofibrate (LOFIBRA) 54 mg tablet Take 1 tablet by mouth once daily. 06/28/2022 Active ferrous sulfate 325 mg oral tablet (20 sources) Start: 11-13-2023 take 1 tablet by mouth once daily ferrous sulfate 325 mg (65 mg iron) tablet Take 325 mg by mouth once daily. 11/13/2023 Active fexofenadine hydrochloride 180 mg oral tablet (20 sources) Histamine-1 Receptor Antagonist Start: 06-18-2024 take 1 tablet by mouth at bedtime fexofenadine (CHAKA) 180 MG tablet Take 1 tablet by mouth at bedtime 90 tablet 1 06/18/2024 Active take 1 tablet by rhianna th every twelve hours fexofenadine (CHAKA) 60 mg tablet Take 60 mg by mouth every 12 hours. Active take 1 tablet by mouth at bedtim e fexofenadine (CHAKA) 180 MG tablet Take 1 tablet by mouth at bedtime 0 Active fluticasone propionate 0.093 mg/actuat metered dose nasal spray (20 sources) Corticosteroid Start: 08-17-2021 XHANCE 93 mcg/actuation nasal spray Use 93 mcg in the nose two times a day. 08/17/2021 Active 30 actuat fluticasone furoate 0.2 mg/actuat / vilanterol 0.025 mg/actuat dry powder inhaler (20 sources) Corticosteroid, beta2-Adrenergic Agonist Start: 01-17-2018 fluticasone furoate-vilanterol (BREO ELLIPTA) 200-25 MCG/ACT AEPB inhaler 01/17/2018 Active Start: 01-17-2018 take 1 puff(s) by in halation once daily fluticasone-vilanterol (BREO ELLIPTA) 100-25 MCG/INH AEPB inhaler 1 puffs, Inhale, Daily, # 30 EA, 11 Refill(s), Pharmacy: [place] [id number] 01/17/2018 Active fluticasone-jose nterol (BREO ELLIPTA) 200-25 mcg/dose inhaler Inhale 1 Inhalation as instructed once daily. Active glucagon 3 mg nasal powder (20 sources) Antihypoglycemic Agent Start: 08-22-2024 glucagon (BAQSIMI) 3 mg/actuation nasal spray Indications: Post-pancreatectomy diabetes (HCC) Use 1 [place] in the nose as needed. May repeat after 15 minutes using a new device if there is no response. 2 Each 1 08/22/2024 Active glucose 4000 mg chewable tablet (20 sources) Start: 08-22-2024 glucose 4 gram chewable tablet Indications: Post-pancreatectomy diabetes (HCC) Take 4 tablets by mouth as needed. 100 tablet 1 08/22/2024 Active 3 ml insulin glargine 100 unt/ml pen injector (20 sources) Insulin Analog Start: 09-04-2024 End: 12-03-2024 inject 16 [IU] by subcutaneous injection once daily at bedtime insulin glargine 100 unit/mL (3 mL) Inject 16 Units subcutaneously daily at bedtime. 14.4 mL 09/04/2024 12/03/2024 Active Start: 08-22-2024 insulin glargi ne (LANTUS SOLOSTAR U-100 INSULIN) 100 unit/mL (3 mL) Indications: Post-pancreatectomy diabetes (HCC) Use 20 units daily 15 mL 1 08/22/2024 Suspended insulin lispro 100 unt/ml injectable solution (20 sources) Insulin Analog Start: 09-28-2024 insulin lispro (HUMALOG U-100 INSULIN) 100 unit/mL injection Indications: Post-pancreatectomy diabetes (HCC) Use up to 50 units in insulin pump daily 50 mL 1 09/28/2024 Active Start: 09-04-2024 insulin lispro (HUMALOG KWIKPEN INSULIN) 100 unit/mL Indications: Post-pancreatectomy diabetes (HCC) Inject 3 units three times daily with meals along with the sliding scale with meals and at bedtime: If Blood Glucose (mg/dL) is: Less than 110-Give 0 units 111-150Give 0 units 151-200Give 2 units 201-250Give 4 units 251-300Give 6 units 301-350Give 8 units 351-400Give 10 units Greater than 400-Give 10 units and Notify Provider 15 mL 1 09/04/2024 Active Start: 08-22-2024 insulin lispro (HUMALOG KWIKPEN INSULIN) 100 unit/mL Indications: Post-pancreatectomy diabetes (HCC) Use up to 30 units daily 15 mL 1 08/22/2024 Suspended isopropyl alcohol 0.7 ml/ml medicated pad (20 sources) Start: 08-22-2024 alcohol swabs (ALCOHOL WIPES) Indications: Post-pancreatectomy diabetes (HCC) Ue up to 8 times a day 800 Each 1 08/22/2024 Active 1 ml ketorolac tromethamine 30 mg/ml cartridge (4 sources) Nonsteroidal Anti-inflammatory Drug, Cyclooxygenase Inhibitor Start: 09-05-2024 30 mg, IntraMUSCular , ONCE, 1 dose, On Sun09/05/24 at 2145, Do not administer for more than 5 days. Start: 09-05-2024 End: 09-08-2024 take 1 tablet by mouth every six hours as needed for pain ketorolac (TORADOL) 10 MG tablet Take 1 tablet by mouth every 6 hours as needed for Pain 12 tablet 09/05/2024 09/08/2024 Active Start: 08-11-2024 End: 08-11-2024 30 mg, IntraMUSCular, ONCE, 1 dose, On 08/11/24 at 1330, Do not administer for more than 5 days. Start: 03-17-2024 End: 03-17-2024 ketorolac (TORADOL) injectio n 30 mg lipase/protease/amylase (CREON ORAL) (6 sources) lipase/protease/ amylase (CREON ORAL) Take by mouth. 0 Active magnesium hydroxide 80 mg/ml oral suspension (14 sources) Sta rt: take 30 mL by mouth once daily as needed for constipation magnesium hydroxide (MOM) 400 mg/5 mL suspension Take 30 mL by mouth once daily as needed for constipation. 210 mL 09/04/2024 Active mepolizumab 100 mg injection (20 sources) Interleukin-5 Antagonist inject 100 mg by subcutaneous injection every month mepolizumab injection 100 mg (NUCALA) Inject 100 mg subcutaneously once every month. Active mepolizumab (NUC ALA) 100 MG SOLR injection Inject 1 mL into the skin every 30 days Active mepolizumab (NUC ALA SUBQ) Inject under the skin. 0 Active 24 hr metFORMIN hydrochloride 500 mg extended release oral tablet (20 sources) Biguanide Start: 06-18-2024 take 1 tablet by mouth once daily at breakfast metFORMIN (GLUCOPHAGE-XR) 500 MG extended release tablet Indications: Type 2 diabetes mellitus without complication, without long-term current use of insulin (HCC) Take 1 tablet by mouth daily (with breakfast) 90 tablet 1 06/18/2024 Active Start: 11-16-2023 take 1 tablet by rhianna th once daily in the morning metFORMIN (GLUCOPHAGE-XR) 500 MG extended release tablet Indications: Prediabetes take 1 tablet by mouth every morning with breakfast 90 tablet 1 11/16/2023 Active Start: 05-24-2023 take 1 tablet by rhianna th once daily at breakfast metFORMIN (GLUCOPHAGE-XR) 500 MG extended release tablet Indications: Prediabetes Take 1 tablet by mouth daily (with breakfast) 90 tablet 0 05/24/2023 Active Start: 10-31-2021 take 1 tablet by rhianna th once daily metFORMIN (GLUCOPHAGE) 500 mg tablet Take 1 tablet by mouth once daily. 10/31/2021 Suspended take 1 tablet by rhianna th once daily at breakfast metFORMIN (FORTAMET) 500 MG (OSM) 24 hr tablet Take 1 tablet (500 mg total) by mouth daily with breakfast. 0 Active 1 ml methylPREDNISolone acetate 40 mg/ml injection (1 source) Corticosteroid Start: 08-08-2024 End: 08-08-2024 inject 1 dose by intramuscular injection once 40 mg, IntraMUSCular, ONCE, 1 dose, On Sun08/08/24 at 1415 Start: 08-08-2024 End: 08-08-2024 inject 1 dose by intramuscular injection once 40 mg, IntraMUSCular, ONCE, 1 dose, On Sun08/08/24 at 1415 metoclopramide 10 mg oral tablet (7 sources) Dopamine-2 Receptor Antagonist Start: 09-04-2024 End: 09-18-2024 take 1 tablet by mouth three times daily metoclopramide HCl (REGLAN) 10 mg tablet Take 1 tablet by mouth three times a day for 14 days. 42 tablet 09/04/2024 09/18/2024 Active Start: 08-05-2024 End: 08-05-2024 10 mg, IntraVENous, ONCE, 1 dose, On Sun08/05/24 at 1945, IV Push: Max 10 mg over 1-2 minutes. montelukast 10 mg oral tablet (20 sources) Leukotriene Receptor Antagonist Start: 05-24-2023 take 1 tablet by mouth once daily montelukast (SINGULAIR) 10 MG tablet Indications: Asthma, unspecified asthma severity, unspecified whether complicated, unspecified whether persistent 1 tablet Orally Once a day for 30 day(s) 90 tablet 1 06/18/2024 Active naloxone hydrochloride 40 mg/ml nasal spray (6 sources) Opioid Antagonist Start: 08-01-2023 naloxone (NA RCAN) 4 mg/actuation spray,non-aerosol nasal spray Administer 1 spray (4 mg total) into alternating nostrils as needed for opioid reversal. 1 each 1 08/01/2023 Active naloxone 4 mg/actuation nasal spray (NARCAN) (20 sources) Start: 08-01-2023 take 4 mg nasal route every twenty-four hours as needed naloxone 4 mg/actuation nasal spray (NARCAN) Use 4 mg in the nose at bedtime as needed. 08/01/2023 Suspended Start: 08-01-2023 take 4 mg nasal rout e every twenty-four hours as needed naloxone 4 mg/actuation nasal spray (NARCAN) Use 4 mg in the nose at bedtime as needed. 08/01/2023 Active nirmatrelvir/ritonavir 300/100 (PAXLOVID, 300/100,) 20 x 150 MG & 10 x 100MG TBPK (1 source) Start: 01-31-2024 End: 02-05-2024 nirmatrelvir/ritonavir 300/100 (PAXLOVID, 300/100,) 20 x 150 MG & 10 x 100MG TBPK Indications: COVID Take 3 tablets (two 150 mg nirmatrelvir and one 100 mg ritonavir tablets) by mouth every 12 hours for 5 days. 30 tablet 0 01/31/2024 02/05/2024 Active nitroglycerin 0.4 mg sublingual tablet (1 source) Nitrate Vasodilator Start: 03-17-2024 nitroGLYCERIN (NITROSTAT) SL tablet 0.4 mg NON FORMULARY (7 sources) NON FORMULARY Me d Name: Genoveva Sewell 0 Active NON FORMULARY Me d Name: Sophie Raymundo 0 Active omeprazole 40 mg delayed release oral capsule (20 sources) Proton Pump Inhibitor Start: 01-03-2021 take 1 capsule by mouth once daily omeprazole (PRILOSEC) 40 mg capsule Take 40 mg by mouth once daily. 01/03/2021 Active oxyCODONE hydrochloride 5 mg oral tablet (4 sources) Opioid Agonist Start: 09-05-2024 End: 09-12-2024 take 1 tablet by mouth every eight hours as needed for pain oxyCODONE IR (ROXICODONE) 5 mg immediate release tablet Indications: Acute post-operative pain Take 1 tablet by mouth every 8 hours as needed for pain (for pain not relieved by your baseline tramadol regimen and tylenol) for up to 7 days. 21 tablet 09/05/2024 09/12/2024 Active pantoprazole 40 mg delayed release oral tablet (14 sources) Proton Pump Inhibitor Start: 09-04-2024 End: 12-03-2024 take 1 tablet by mouth once daily pantoprazole DR (PROTONIX) 40 mg tablet Take 1 tablet by mouth once daily. 30 tablet 2 09/04/2024 12/03/2024 Active polyethylene glycol 3350 25973 mg powder for oral solution (14 sources) Osmotic Laxative Start: 09-04-2024 polyethylene glycol 3350 17 gram packet Take 1 Packet by mouth once daily as needed for constipation (Second line). Dissolve dose in 4 - 8 ounces of liquid and take as directed. 7 Packet 09/04/2024 Active prazosin 1 mg oral capsule (20 sources) alpha-Adrenergic Kandi Start: 06-18-2024 take 1 capsule by mouth once daily prazosin (MINIPRESS) 1 MG capsule Take 1 capsule by mouth nightly 90 capsule 1 06/18/2024 Active take 1 mg by mouth once daily at bedtime prazosin HCl (PRAZOSIN ORAL) Take 1 mg by mouth daily at bedtime. Active take 1 capsule by mouth once gaudencio ly prazosin (MINIPRESS) 1 MG capsule Take 1 capsule by mouth nightly 0 Active promethazine hydrochloride 25 mg rectal suppository (20 sources) Phenothiazine Start: 09-30-2024 End: 11-14-2024 take 25 mg rectal route every six hours as needed promethazine (PHENERGAN) 25 mg suppository 1 Suppository by RECTAL route every 6 hours as needed for nausea/vomiting. 60 Suppository 2 09/30/2024 11/14/2024 Active Start: 09-11-2024 take 1 tablet by rhianna th every eight hours as needed for nausea and nausea promethazine (PHENERGAN) 25 mg tablet Indications: Nausea Take 1 tablet by mouth every 8 hours as needed (for nausea). 90 tablet 2 09/26/2024 Active Start: 08-28-2023 PROMETHEGAN 25 MG suppository Start: 05-28-2021 take 1 tablet by rhianna th every six hours as needed promethazine (PHENERGAN) 25 mg tablet Take 1 tablet by mouth every 6 hours as needed. 05/28/2021 Active tamsulosin hydrochloride 0.4 mg oral capsule (20 sources) alpha-Adrenergic Kandi Start: 07-14-2024 take 1 capsule by mouth once daily tamsulosin (FLOMAX) 0.4 MG capsule Indications: BPH with obstruction/lower urinary tract symptoms Take 1 capsule by mouth daily 90 capsule 3 08/20/2024 Active tetracycline hydrochloride 250 mg oral capsule (6 sources) Tetracycline-class Antimicrobial tetracycline (ACHROMYCIN,SUMYCIN) 250 mg capsule Take 1 capsule (250 mg total) by mouth in the morning and 1 capsule (250 mg total) at noon and 1 capsule (250 mg total) in the evening and 1 capsule (250 mg total) before bedtime. 0 Active traMADol hydrochloride 50 mg oral tablet (20 sources) Opioid Agonist Start: 01-28-2024 take 1-2 tablets by mouth twice daily as needed traMADoL (ULTRAM) 50 mg tablet Indications: Postlaminectomy syndrome, lumbar region Take 1-2 tabs po bid prn. 120 tablet 0 01/28/2024 Active Start: 12-29-2023 End: 01-21-2024 take 1-2 tablets by mouth twice daily as needed traMADoL (ULTRAM) 50 mg tablet Indications: Postlaminectomy syndrome, lumbar region Take 1-2 tabs po bid prn. Filldate12/29/23 120 tablet 0 12/29/2023 01/21/2024 Discontinued (Reorder) Start: 12-29-2023 take 1-2 tablets by mouth twice daily as needed traMADoL (ULTRAM) 50 mg tablet Indications: Postlaminectomy syndrome, lumbar region Take 1-2 tabs po bid prn. Filldate12/29/23 120 tablet 0 12/29/2023 Active Start: 11-29-2023 End: 12-24-2023 take 1-2 tablets by mouth twice daily as needed traMADoL (ULTRAM) 50 mg tablet Indications: Postlaminectomy syndrome, lumbar region Take 1-2 tabs po bid prn. Filldate 11/29/23 120 tablet 0 11/29/2023 12/24/2023 Discontinued (Reorder) Start: 11-29-2023 take 1-2 tablets by mouth twice daily as needed traMADoL (ULTRAM) 50 mg tablet Indications: Postlaminectomy syndrome, lumbar region Take 1-2 tabs po bid prn. Filldate 11/29/23 120 tablet 0 11/29/2023 Active Start: 11-29-2023 take 1-2 tablets by mouth twice daily as needed traMADoL (ULTRAM) 50 mg tablet Indications: Postlaminectomy syndrome, lumbar region Take 1-2 tabs po bid prn. Filldate 11/29/23 120 tablet 0 11/29/2023 Active Start: 10-28-2023 End: 11-21-2023 take 1-2 tablets by mouth twice daily as needed traMADoL (ULTRAM) 50 mg tablet Indications: Postlaminectomy syndrome, lumbar region Take 1-2 tabs po bid prn. Filldate 10/28/22 120 tablet 0 10/28/2023 11/21/2023 Discontinued (Reorder) Start: 10-28-2023 take 1-2 tablets by mouth twice daily as needed traMADoL (ULTRAM) 50 mg tablet Indications: Postlaminectomy syndrome, lumbar region Take 1-2 tabs po bid prn. Filldate 10/28/22 120 tablet 0 10/28/2023 Active Start: 08-29-2023 End: 09-12-2024 take 2 tablets by mouth twice daily traMADol (ULTRAM) 50 mg tablet Indications: Acute postoperative pain Take 2 tablets by mouth two times a day for 7 days. 28 tablet 09/05/2024 09/12/2024 Active Start: 08-29-2023 End: 10-24-2023 traMADol (ULTRAM) 50 MG tabl et Start: 06-11-2023 End: 02-29-2024 take 1 tablet by mouth once daily traMADol (ULTRAM ER) 100 MG extended release tablet Take 1 tablet by mouth daily. Takes at 1400 08/31/2023 Active Start: 06-11-2023 End: 08-02-2023 take 2 tablets by mouth twice daily traMADol (ULTRAM) 50 mg tablet Take 2 tablets by mouth two times a day. 06/15/2023 Suspended zinc gluconate 30 mg oral ta blet (20 sources) Zinc Gluconate 3 0 mg tab Take by mouth. Active take 1 tablet [facility] mg tablet Take 1 tablet (50 mg total) by mouth in the morning. 0 Active ziprasidone 40 mg oral capsule (20 sources) Atypical Antipsychotic Start: 2018 take 1 capsule by mouth once daily in the evening ziprasidone (GEODON) 40 mg capsule Take 1 capsule by mouth every evening. 2018 Active take 1 capsule by mo [facility] in the morning, then take 1 capsule by mouth at mealtime ziprasidone (GEODON) 20 mg capsule Take 1 capsule (20 mg total) by mouth in the morning and 1 capsule (20 mg total) in the evening. Take with meals. 0 Active ziprasidone (LEE ANN DON) injection Inject 1 mL (20 mg total) into the appropriate muscle once. 0 Active Completed/Discontinued Medications Medication Drug Class(es) Dates Sig (Normalized) Sig (Original) acetaminophen 325 mg oral tablet (15 sources) Start: 09-05-2024 End: 09-05-2024 take 4000 mg by mouth every twenty-four hours 650 mg, Oral, ONCE, 1 dose, On Sun09/05/24 at 2145, Maximum dose of acetaminophen is 4000 mg from all sources in 24 hours. Start: 09-04-2024 take 2 tablets by [facility] every six hours as needed acetaminophen (TYLENOL) 325 mg tablet Take 2 tablets by mouth every 6 hours as needed for pain. 09/04/2024 Active aspirin 81 mg chewable tablet (1 source) Platelet Aggregation Inhibitor, Nonsteroidal Anti-inflammatory Drug Start: 03-17-2024 End: 03-17-2024 aspirin chewable tablet 324 mg 0.5 ml HYDROmorphone hydrochloride 1 mg/ml prefilled syringe (1 source) Opioid Agonist Start: 08-05-2024 End: 08-05-2024 take 1 dose by mouth every hour 1 mg, IntraVENous, ONCE, 1 dose, On Sun08/05/24 at 1945, If oral and IV narcotics ordered, use oral first and only use IV if oral is ineffective or cannot take oral. Do Not give oral and IV within 1 hour of each other unless specifically ordered. iopamidol (ISOVUE-370) 76 % injection 75 mL (1 source) Start: 04-23-2024 End: 04-23-2024 iopamidol (ISOVUE-370) 76 % injection 75 mL 2 ml orphenadrine citrate 30 mg/ml injection (3 sources) Muscle Relaxant Start: 09-05-2024 End: 09-05-2024 inject 1 dose by intramuscular injection once 60 mg, IntraMUSCular, ONCE, 1 dose, On Sun09/05/24 at 2145 Start: 08-08-2024 End: 08-18-2024 take 1 tablet by mouth twice daily orphenadrine (NORFLEX) 100 MG extended release tablet Take 1 tablet by mouth 2 times daily for 10 days 20 tablet 08/08/2024 08/18/2024 Active regadenoson (LEXISCAN) injec tion 0.4 mg (1 source) Start: 07-05-2023 End: 07-05-2023 regadenoson (LEXISCAN) injection 0.4 mg 50 ml sodium chloride 9 mg/m l injection (1 source) Start: 08-05-2024 End: 08-05-2024 1,000 mL (10.3 mL/kg), IntraVENous, at 983.6 mL/hr, Administer over 61 Minutes, ONCE, On Sun08/05/24 at 1945, For 1 dose technetium sestamibi (CARDIOLITE) injection 30 millicurie (1 source) Start: 07-05-2023 End: 07-05-2023 technetium sestamibi (CARDIOLITE) injection 30 millicurie Problems Active Problems Problem Classification Problem Date Documented Da te Episodic/Chronic Abdominal pain (2 sources) Epigastric pain; Translations: [Epigastric pain] Onset: 4 08-05-2024 Episodic Anxiety disorders (20 sources) Posttraumatic stress disorder; Translations: [Post-traumatic stress disorder, unspecified] Onset: 3 Resolved: 3 05-18-2023 Chronic Asthma (20 sources) Severe persistent asthma; Translations: [Severe persistent asthma, uncomplicated] Onset: 9 05-18-2023 Chronic Complications of surgical procedures or medical care (1 source) Postprocedural hypoinsulinemia; 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)] Onset: 4 Chronic Deficiency and other anemia (2 sources) Anemia; Translations: [Anemia, unspecified] 11-30-2023 Episodic Deficiency and other anemia (3 sources) Anemia, unspecified; Translations: [Anemia, unspecified] Onset: 4 Episodic Diabetes mellitus without complication (20 sources) Type 2 diabetes mellitus without complication; Translations: [Type 2 diabetes mellitus without complications] Onset: 2 Resolved: 4 01-11-2024 Chronic Disorders of lipid metabolism (15 sources) Hypertriglyceridemia; Translations: [Pure hyperglyceridemia] 05-18-2023 Chronic Esophageal disorders (20 sources) Gastroesophageal reflux disease; Translations: [Gastro-esophageal reflux disease without esophagitis] Onset: 2 05-18-2023 Chronic Essential hypertension (15 sources) Essential hypertension; Translations: [Essential (primary) hypertension] Onset: 4 07-05-2023 Chronic Malaise and fatigue (5 sources) Fatigue; Translations: [Other fatigue] Onset: 4 11-30-2023 Episodic Mood disorders (20 sources) Bipolar I disorder; Translations: [Bipolar disorder, unspecified] Onset: 0 Resolved: 3 05-18-2023 Chronic Neoplasms of unspecified nature or uncertain behavior (20 sources) Benign neoplasm of pancreas; 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] Onset: 4 Resolved: 4 07-22-2024 Episodic Nonspecific chest pain (5 sources) Chest pain; Translations: [Chest pain, unspecified] Onset: 4 07-05-2023 Episodic Nutritional deficiencies (20 sources) Vitamin D deficiency; Translations: [Vitamin D deficiency, unspecified] Onset: 8 Resolved: 3 05-18-2023 Chronic Osteoarthritis (20 sources) Idiopathic osteoarthritis; Translations: [Primary osteoarthritis, unspecified site] Onset: 3 05-29-2023 Chronic Other aftercare (4 sources) Admission statuses; 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] Onset: 4 10-24-2023 Episodic Other aftercare (14 sources) Insulin dose changed; Translations: [nursing home (current) use of insulin] Onset: 4 08-30-2024 Episodic Other and unspecified benign neoplasm (14 sources) Polyp of colon; Translations: [Polyp of colon] 02-04-2018 Episodic Other gastrointestinal disorders (1 source) Diarrhea; Translations: [Diarrhea, unspecified] Episodic Other liver diseases (20 sources) Steatosis of liver; Translations: [Fatty (change of) liver, not elsewhere classified] Onset: 4 05-18-2023 Chronic Other liver diseases (1 source) Fatty (change of) liver, not elsewhere classified; Translations: [Fatty liver] Onset: 4 Chronic Other nervous system disorders (1 source) Chronic pain syndrome; Translations: [Chronic pain syndrome] 11-30-2023 Chronic Other nervous system disorders (1 source) Chronic pain syndrome; Translations: [Chronic pain syndrome] Onset: 4 Chronic Other nervous system disorders (15 sources) Acute postoperative pain; Translations: [Other acute postprocedural pain] Onset: 4 09-05-2024 Episodic Other nervous system disorders (1 source) Other acute postprocedural pain; Translations: [Acute postoperative pain] Onset: 4 Episodic Other nutritional; endocrine; and metabolic disorders (14 sources) Obese class I; Translations: [Obesity, Class I, BMI 30-34.9] Onset: 4 08-30-2024 Chronic Other screening for suspected conditions (not mental disorders or infectious disease) (20 sources) Other specified abnormal findings of blood chemistry; Translations: [Other abnormal blood chemistry] Onset: 8 Resolved: 3 05-18-2023 Episodic Pancreatic disorders (not diabetes) (20 sources) Chronic pancreatitis; Translations: [Other chronic pancreatitis] Onset: 4 08-05-2024 Chronic Pancreatic disorders (not diabetes) (20 sources) Acute on chronic pancreatitis; Translations: [Acute pancreatitis without necrosis or infection, unspecified] Onset: 3 05-18-2023 Episodic Residual codes; unclassified (14 sources) History of pancreatectomy; 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] Onset: 4 08-30-2024 Chronic Residual codes; unclassified (1 source) Acquired total absence of pancreas; 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)] Onset: 4 Chronic Residual codes; unclassified (20 sources) History of excision of intestinal structure; Translations: [Acquired absence of other specified parts of digestive tract] Onset: 4 05-18-2023 Episodic Residual codes; unclassified (1 source) Pain, unspecified; Translations: [Pain, unspecified] Onset: 4 Episodic Residual codes; unclassified (1 source) Acquired absence of other specified parts of digestive tract; Translations: [History of bowel resection] Onset: 4 Episodic Spondylosis; intervertebral disc disorders; other back problems (20 sources) Lumbar post-laminectomy syndrome; Translations: [Postlaminectomy syndrome, not elsewhere classified] Onset: 3 10-24-2023 Chronic Spondylosis; intervertebral disc disorders; other back problems (20 sources) Low back pain; Translations: [Low back pain] Onset: 3 05-29-2023 Episodic Sprains and strains (20 sources) Low back strain; Translations: [Strain of muscle, fascia and tendon of lower back, initial encounter] Onset: 3 05-29-2023 Episodic Superficial injury; contusion (8 sources) Contusion of left chest wall; Translations: [Contusion of left front wall of thorax, initial encounter] Onset: 4 08-08-2024 Episodic Systemic lupus erythematosus and connective tissue disorders (20 sources) Eosinophilic granulomatosis with polyangiitis; 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 [[facility]-Ebenezer]] Onset: 1 08-22-2024 Chronic Unclassified (1 source) Postlaminectomy syndrome, lumbar region [722.83] Onset: 4 Unclassified (1 source) 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[facility]) ([facility]); Translations: [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[facility])] Onset: 4 Viral infection (3 sources) COVID-19; Translations: [COVID-19] Onset: 4 Past or Other Problems Problem Classification Problem Date Documented Da te Episodic/Chronic Acute posthemorrhagic anemia (14 sources) Acute posthemorrhagic anemia; Translations: [Acute posthemorrhagic anemia] Onset: 08-28-2024 Resolved: 09-04-2024 09-04-2024 Episodic Administrative/social admission (1 source) Encounter for issue of repeat prescription; Translations: [Encounter for issue of repeat prescription] Onset: 02-07-2024 Episodic Chronic obstructive pulmonary disease and bronchiectasis (10 sources) Bronchitis; Translations: [Bronchitis, not specified as acute or chronic] Onset: 02-07-2024 02-07-2024 Episodic Complications of surgical procedures or medical care (14 sources) Pulmonary insufficiency following surgery; Translations: [Other postprocedural complications and disorders of respiratory system, not elsewhere classified] Onset: 08-30-2024 Resolved: 09-04-2024 09-04-2024 Episodic Diabetes mellitus without complication (20 sources) Hyperglycemia; Translations: [Hyperglycemia, unspecified] Onset: 08-21-2019 Resolved: 05-18-2023 05-18-2023 Episodic Diverticulosis and diverticulitis (14 sources) Diverticular disease; Translations: [Diverticulosis of intestine, part unspecified, without perforation or abscess without bleeding] Onset: 01-26-2020 Resolved: 05-18-2023 05-18-2023 Chronic Fracture of upper limb (2 sources) Closed fracture of phalanx of index finger; Translations: [Fracture of unspecified phalanx of left index finger, initial encounter for closed fracture] Onset: 04-26-2024 04-26-2024 Episodic Hemorrhoids (14 sources) Internal hemorrhoids; Translations: [Other hemorrhoids] Onset: 01-26-2020 Resolved: 05-18-2023 05-18-2023 Episodic Hyperplasia of prostate (14 sources) Large prostate ; Translations: [Benign prostatic hyperplasia without lower urinary tract symptoms] Onset: 01-26-2020 Resolved: 05-18-2023 05-18-2023 Chronic Other aftercare (1 source) 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; Translations: [nursing home (current) use of opiate analgesic] Onset: 12-25-2023 Episodic Other connective tissue disease (20 sources) Trochanteric bursitis of right hip; Translations: [Trochanteric bursitis, right hip] Onset: 05-29-2023 05-29-2023 Episodic Other diseases of kidney and ureters (14 sources) Kidney lesion; Translations: [Disorder of kidney and ureter, unspecified] Resolved: 05-18-2023 05-18-2023 Episodic Other gastrointestinal disorders (1 source) Diarrhea, unspecified; Translations: [Diarrhea, unspecified] Onset: 09-10-2023 Episodic Other lower respiratory disease (14 sources) Disorder of lung; Translations: [Other disorders of lung] Resolved: 05-18-2023 05-18-2023 Episodic Other non-traumatic joint disorders (14 sources) Pain in right knee; Translations: [Pain in joint, lower leg] Onset: 05-24-2020 05-29-2023 Episodic Other nutritional; endocrine; and metabolic disorders (2 sources) Obesity; Translations: [Other obesity due to excess calories] Onset: 02-04-2018 Resolved: 05-18-2023 05-18-2023 Chronic Other nutritional; endocrine; and metabolic disorders (12 sources) Obesity caused by energy imbalance; Translations: [Other obesity due to excess calories] Onset: 02-04-2018 Resolved: 05-18-2023 05-18-2023 Chronic Other upper respiratory disease (14 sources) Seasonal allergy; Translations: [Other seasonal allergic rhinitis] Resolved: 05-18-2023 05-18-2023 Chronic Residual codes; unclassified (14 sources) Presence of other specified devices; Translations: [Other postprocedural status] Onset: 05-29-2023 05-29-2023 Episodic Residual codes; unclassified (14 sources) Pain; Translations: [Pain, unspecified] Onset: 01-26-2020 Resolved: 02-25-2020 02-25-2020 Episodic Unclassified (6 sources) Onset: 06-18-2024 06-18-2024 Urinary tract infections (1 source) Urinary tract infection, site not specified; Translations: [Urinary tract infection, site not specified] Onset: 10-07-2023 Episodic Results Test Name Value Interpretation Reference Range Facility [facility] 10-02-2024 CNPN Normal [facility] CNOVon 09-30-2024 CNOV Normal [facility] CNPNon 09-26-2024 CNPN Normal [facility] CNPNon 09-24-2024 CNPN Normal [facility] 09[facility]15-2024 [facility] CONSULT PROGon 09-04-2024 CONSULT PROG Normal [facility] Basic metabolic 2000 panelon 09-03-2024 Anion gap [Moles/Vol] 11 mmol/L Normal 8-15 [facility] Comment on above: Order Comment: Speci men Type: BLOOD SPECIMENOrdering Facility: [facility] Address: [address] [place] [address] Performed By: #### 2 4321-2, 2777-1, 79737-7 ####[facility] LABCLIA [id number] [place] [address] [place] Calcium [Mass/Vol] 8.8 mg/dL Normal 8.5-10.2 [facility] Comment on above: Order Comment: Speci men Type: BLOOD SPECIMENOrdering Facility: [facility] Address: [address] [place], [place] [id number] Performed By: #### 2 4321-2, 2776-10, ####[facility] LABCLIA [id number] [address] [address] [place] Chloride [Moles/Vol] 99 mmol/L Normal 98-[address] [facility] Comment on above: Order Comment: Speci men Type: BLOOD SPECIMENOrdering Facility: [facility] Address: [address] [place], [place] [id number] Performed By: #### 2 4321-2, 2776-10, ####[facility] LABCLIA [id number] [place] [address] [place] CO2 [Moles/Vol] 25 mmol/L Normal 22-30 [facility] Comment on above: Order Comment: Speci men Type: BLOOD SPECIMENOrdering Facility: [facility] Address: [address] [place], [place] [id number] Performed By: #### 2 4321-2, 2776-10, ####[facility] LABCLIA [id number] [place] [address] [place] Creatinine [Mass/Vol] 0.82 mg/dL Normal 0.73-1.22 [facility] Comment on above: Order Comment: Speci men Type: BLOOD SPECIMENOrdering Facility: [facility] Address: [address] [place], [place] [id number] Performed By: #### 2 4321-2, 2776-10, ####[facility] LABIA [id number] [place] [id number] [place] Creatinine and Glomerular filtration rate.predicted panel (S/P/Bld) 104 mL/min/1.73m??? Normal >=60 [facility] Comment on above: Order Comment: Speci men Type: BLOOD SPECIMENOrdering Facility: [facility] Address: [address] [id number] Result Comment: Marisa mated Glomerular Filtration Rate (eGFR) is calculated using the 2020 CKD-EPI creatinine equation. This equation utilizes serum creatinine, sex, and age as parameters. The creatinine assay has traceable calibration to isotope dilution-mass spectrometry. Refer to KDIGO guidelines for clinical interpretation. In patients with unstable renal function, e.g. those with acute kidney injury, the eGFR may not accurately reflect actual GFR. Performed By: #### 2 4321-2, 277-, ####[facility] LABCLIA [id number] [place] [address] [place] Glucose [Mass/Vol] 227 mg/dL High 74-99 [facility] Comment on above: Order Comment: Speccurly men Type: BLOOD SPECIMENOrdering Facility: [facility] Address: [address] [place] [address] Result Comment: The [place] Diabetes Association (ADA) provides guidance for cutoff values for fasting glucose and random glucose. The ADA defines fasting as no caloric intake for at least 8 hours. Fasting plasma glucose results between 100 to 125 mg/dL indicate increased risk for diabetes (prediabetes).Fasting plasma glucose results greater than or equal to 126 mg/dL meet the criteria for diagnosis of diabetes. In the absence of unequivocal hyperglycemia, results should be confirmed by repeat testing. In a patient with classic symptoms of hyperglycemia or hyperglycemic crisis, random plasma glucose results greater than or equal to 200 mg/dL meet the criteria for diagnosis of diabetes.Reference: Standards of Medical Care in Diabetes 2016, [place] Diabetes Association. Diabetes Care. 2016.39(Suppl 1). Performed By: #### 2 4321-2, 27704-21, ####[facility] LABCLIA [id number] [place] [id number] [place] Potassium [Moles/Vol] 4.3 mmol/L Normal 3.7-5.1 [facility] Comment on above: Order Comment: Speccurly men Type: BLOOD SPECIMENOrdering Facility: [facility] Address: [address] [place] [address] Performed By: #### 2 4321-2, 2777-1, ####[facility] LABCLIA [id number] [address] [address] [place] Sodium [Moles/Vol] 135 mmol/L Low 136-144 [facility] Comment on above: Order Comment: Speci men Type: BLOOD SPECIMENOrdering Facility: [facility] Address: [address] [place] [address] Performed By: #### 2 4321-2, 2777-1, ####[facility] LABCLIA [id number] [place] [address] [place] Urea nitrogen [Mass/Vol] 9 mg/dL Normal 9-24 [facility] Comment on above: Order Comment: Speci men Type: BLOOD SPECIMENOrdering Facility: [facility] Address: [address] [place] [address] Performed By: #### 2 4321-2, 2777-1, ####[facility] LABCLIA [id number] [place] [id number] [place] CASE MANAGEMon 09-03-2024 CASE MANAGEM Normal [facility] CBC panel Auto (Bld)on 09-03 Erythrocyte distribution width (RBC) [Ratio] 13.2 % Normal 11.5-15.0 [facility] Comment on above: Order Comment: Speci men Type: BLOOD SPECIMENOrdering Facility: [facility] Address: [address] [place] [address] Performed By: #### 5 8410-2 ####[facility] LABCLIA [id number] [place] [id number] [place] Hematocrit (Bld) [Volume fraction] 25.9 % Low 39.0-51.0 [facility] Comment on above: Order Comment: Speci men Type: BLOOD SPECIMENOrdering Facility: [facility] Address: [address] [place] [address] Performed By: #### 5 8410-2 ####[facility] LABIA [id number] [place] [address] [place] Hemoglobin (Bld) [Mass/Vol] 8.3 g/dL Low 13.0-17.0 [facility] Comment on above: Order Comment: Speci men Type: BLOOD SPECIMENOrdering Facility: [facility] Address: [address] [place] [address] Performed By: #### 5 8410-2 ####[facility] LABIA [id number] [place] [address] [place] MCH (RBC) [Entitic mass] 29.1 pg Normal 26.0-34.0 [facility] Comment on above: Order Comment: Speci men Type: BLOOD SPECIMENOrdering Facility: [facility] Address: [address] [place] [address] Performed By: #### 5 8410-2 ####[facility] LABIA [id number] [place] [address] [place] MCHC (RBC) [Mass/Vol] 32.0 g/dL Normal 30.5-36.0 [facility] Comment on above: Order Comment: Speci men Type: BLOOD SPECIMENOrdering Facility: [facility] Address: [address] [place] [address] Performed By: #### 5 8410-2 ####[facility] LABIA [id number] [place] [address] [place] MCV (RBC) [Entitic vol] 90.9 fL Normal 80.0-100.0 [facility] Comment on above: Order Comment: Speci men Type: BLOOD SPECIMENOrdering Facility: [facility] Address: [address] [place] [address] Performed By: #### 5 8410-2 ####[facility] LABIA [id number] [place] [address] [place] Nucleated RBC (Bld) [#/Vol] 0.03 10*3/uL High <0.01 [facility] Comment on above: Order Comment: Speci men Type: BLOOD SPECIMENOrdering Facility: [facility] Address: [address] [place] [address] Performed By: #### 5 8410-2 ####[facility] LABCLIA [id number] [place] [address] [place] Platelet mean volume (Bld) [Entitic vol] 9.4 fL Normal 9.0-12.7 [facility] Comment on above: Order Comment: Speci men Type: BLOOD SPECIMENOrdering Facility: [facility] Address: [address] [place] [address] Performed By: #### 5 8410-2 ####[facility] LABCLIA [id number] [place] [address] [place] Platelets (Bld) [#/Vol] 548 10*3/uL High 150-400 [facility] Comment on above: Order Comment: Speci men Type: BLOOD SPECIMENOrdering Facility: [facility] Address: [address] [place] [address] Performed By: #### 5 8410-2 ####[facility] LABIA [id number] [place] [address] [place] RBC (Bld) [#/Vol] 2.85 10*6/uL Low 4.20-6.[address] [facility] Comment on above: Order Comment: Speci men Type: BLOOD SPECIMENOrdering Facility: [facility] Address: [address] [place] [address] Performed By: #### 5 8410-2 ####[facility] LABCLIA [id number] [place] [address] [place] WBC (Bld) [#/Vol] 13.25 10*3/uL High 3.70-11.[address] [facility] Comment on above: Order Comment: Speci men Type: BLOOD SPECIMENOrdering Facility: [facility] Address: [address] [place] [address] Performed By: #### 5 8410-2 ####[facility] LABCLIA [id number] [place] [address] [place] CNDSon 09-03-2024 CNDS Normal [facility] CONSULT PROGon 09-03-2024 CONSULT PROG Normal [facility] Magnesium SerPl-mCncon 09-03 Magnesium [Mass/Vol] 1.9 mg/dL Normal 1.7-2.[address] [facility] Comment on above: Order Comment: Speci men Type: BLOOD SPECIMENOrdering Facility: [facility] Address: [address] [place] [address] Performed By: #### 2 4321-2, 2777-1, ####[facility] LABCLIA [id number] [place] [address] [place] NUTRITIONon 09-03-2024 NUTRITION Normal [facility] PT EDon 09-03-2024 PT ED Normal [facility] PT ED Normal [facility] Phosphate SerPl-mCncon 09-03 Phosphate [Mass/Vol] 2.2 mg/dL Low 2.7-4.[address] [facility] Comment on above: Order Comment: Speci men Type: BLOOD SPECIMENOrdering Facility: [facility] Address: [address] [place] [address] Performed By: #### 2 4321-2, 2777-1, 41166-7 ####[facility] LABCLIA [id number] [place] [address] [place] Basic metabolic 2000 panelon 09-02-2024 Anion gap [Moles/Vol] 13 mmol/L Normal 8-15 [facility] Comment on above: Order Comment: Speci men Type: BLOOD SPECIMENOrdering Facility: [facility] Address: [address] [place] [address] Performed By: #### 1 9123-9, 2777-1, 95704-6 ####[facility] LABCLIA [id number] [place] [address] [place] Calcium [Mass/Vol] 8.6 mg/dL Normal 8.5-10.2 [facility] Comment on above: Order Comment: Speci men Type: BLOOD SPECIMENOrdering Facility: [facility] Address: [address] [place] [address] Performed By: #### 1 9123-9, 27771, 26453-8 ####[facility] LABIA [id number] [place] [address] [place] Chloride [Moles/Vol] 101 mmol/L Normal 98-[address] [facility] Comment on above: Order Comment: Speci men Type: BLOOD SPECIMENOrdering Facility: [facility] Address: [address] [place] [address] Performed By: #### 1 9123-9, 2777, 30550-1 ####[facility] LABIA [id number] [place] [address] [place] CO2 [Moles/Vol] 25 mmol/L Normal 22-30 [facility] Comment on above: Order Comment: Speci men Type: BLOOD SPECIMENOrdering Facility: [facility] Address: [address] [place] [address] Performed By: #### 1 9123-9, 2777, 60372-1 ####[facility] LABIA [id number] [place] [address] [place] Creatinine [Mass/Vol] 0.84 mg/dL Normal 0.73-1.22 [facility] Comment on above: Order Comment: Speci men Type: BLOOD SPECIMENOrdering Facility: [facility] Address: [address] [place] [address] Performed By: #### 1 9123-9, 2777-1, 51976-5 ####[facility] LABIA [id number] [place] [address] [place] Creatinine and Glomerular filtration rate.predicted panel (S/P/Bld) 104 mL/min/1.73m??? Normal >=60 [facility] Comment on above: Order Comment: Theo narvaez Type: BLOOD SPECIMENOrdering Facility: [facility] Address: [address] [place] [address] Result Comment: Marisa mated Glomerular Filtration Rate (eGFR) is calculated using the 2020 CKD-EPI creatinine equation. This equation utilizes serum creatinine, sex, and age as parameters. The creatinine assay has traceable calibration to isotope dilution-mass spectrometry. Refer to KDIGO guidelines for clinical interpretation. In patients with unstable renal function, e.g. those with acute kidney injury, the eGFR may not accurately reflect actual GFR. Performed By: #### 1 9123-9, 2777-1, 54100-3 ####[facility] LABIA [id number] [place] [address] [place] Glucose [Mass/Vol] 119 mg/dL High 74-99 [facility] Comment on above: Order Comment: Theo narvaez Type: BLOOD SPECIMENOrdering Facility: [facility] Address: [address] [place] [address] Result Comment: The [place] Diabetes Association (ADA) provides guidance for cutoff values for fasting glucose and random glucose. The ADA defines fasting as no caloric intake for at least 8 hours. Fasting plasma glucose results between 100 to 125 mg/dL indicate increased risk for diabetes (prediabetes).Fasting plasma glucose results greater than or equal to 126 mg/dL meet the criteria for diagnosis of diabetes. In the absence of unequivocal hyperglycemia, results should be confirmed by repeat testing. In a patient with classic symptoms of hyperglycemia or hyperglycemic crisis, random plasma glucose results greater than or equal to 200 mg/dL meet the criteria for diagnosis of diabetes.Reference: Standards of Medical Care in Diabetes 2016, [place] Diabetes Association. Diabetes Care. 2016.39(Suppl 1). Performed By: #### 1 9123-9, 2777-, 98009-4 ####[facility] LABCLIA [id number] [address] [address] [place] Potassium [Moles/Vol] 3.4 mmol/L Low 3.7-5.1 [facility] Comment on above: Order Comment: Speci men Type: BLOOD SPECIMENOrdering Facility: [facility] Address: [address] [place] [address] Performed By: #### 1 9123-9, 2777-, 41656-7 ####[facility] LABCLIA [id number] [place] [address] [place] Sodium [Moles/Vol] 139 mmol/L Normal 136-144 [facility] Comment on above: Order Comment: Speci men Type: BLOOD SPECIMENOrdering Facility: [facility] Address: [address] [place] [address] Performed By: #### 1 9123-9, 2777, ####[facility] LABIA [id number] [place] [id number] [place] Urea nitrogen [Mass/Vol] 13 mg/dL Normal 9-24 [facility] Comment on above: Order Comment: Speci men Type: BLOOD SPECIMENOrdering Facility: [facility] Address: [address] [place] [address] Performed By: #### 1 9123-9, 2777, 51979-3 ####[facility] LABCLIA [id number] [address] [address] [place] CBC panel Auto (Bld)on 09-02 Erythrocyte distribution width (RBC) [Ratio] 13.0 % Normal 11.5-15.0 [facility] Comment on above: Order Comment: Speci men Type: BLOOD SPECIMENOrdering Facility: [facility] Address: [address] [place] [address] Performed By: #### 5 8410-2 ####[facility] LABCLIA [id number] [place] [address] [place] Hematocrit (Bld) [Volume fraction] 25.0 % Low 39.0-51.0 [facility] Comment on above: Order Comment: Speci men Type: BLOOD SPECIMENOrdering Facility: [facility] Address: [address] [place] [address] Performed By: #### 5 8410-2 ####[facility] [id number] [place] [address] [place] Hemoglobin (Bld) [Mass/Vol] 8.0 g/dL Low 13.0-17.0 [facility] Comment on above: Order Comment: Speci men Type: BLOOD SPECIMENOrdering Facility: [facility] Address: [address] [place] [address] Performed By: #### 5 8410-2 ####[facility] LABS[facility] [id number] [place] [address] [place] MCH (RBC) [Entitic mass] 28.9 pg Normal 26.0-34.0 [facility] Comment on above: Order Comment: Speci men Type: BLOOD SPECIMENOrdering Facility: [facility] Address: [address] [place] [address] Performed By: #### 5 8410-2 ####[facility] [id number] [place] [address] [place] MCHC (RBC) [Mass/Vol] 32.0 g/dL Normal 30.5-36.0 [facility] Comment on above: Order Comment: Speci men Type: BLOOD SPECIMENOrdering Facility: [facility] Address: [address] [place] [address] Performed By: #### 5 8410-2 ####[facility] LAB[facility] [id number] [place] [address] [place] MCV (RBC) [Entitic vol] 90.3 fL Normal 80.0-100.0 [facility] Comment on above: Order Comment: Speci men Type: BLOOD SPECIMENOrdering Facility: [facility] Address: [address] [place] [address] Performed By: #### 5 8410-2 ####[facility] LABIA [id number] [place] [address] [place] Nucleated RBC (Bld) [#/Vol] 0.04 10*3/uL High <0.01 [facility] Comment on above: Order Comment: Speci men Type: BLOOD SPECIMENOrdering Facility: [facility] Address: [address] [place] [address] Performed By: #### 5 8410-2 ####[facility] LABIA [id number] [place] [address] [place] Platelet mean volume (Bld) [Entitic vol] 9.3 fL Normal 9.0-12.7 [facility] Comment on above: Order Comment: Speci men Type: BLOOD SPECIMENOrdering Facility: [facility] Address: [address] [place] [address] Performed By: #### 5 8410-2 ####[facility] LABIA [id number] [place] [address] [place] Platelets (Bld) [#/Vol] 435 10*3/uL High 150-400 [facility] Comment on above: Order Comment: Speci men Type: BLOOD SPECIMENOrdering Facility: [facility] Address: [address] [place] [address] Performed By: #### 5 8410-2 ####[facility] LABIA [id number] [place] [address] [place] RBC (Bld) [#/Vol] 2.77 10*6/uL Low 4.20-6.[address] [facility] Comment on above: Order Comment: Speci men Type: BLOOD SPECIMENOrdering Facility: [facility] Address: [address] [place] [address] Performed By: #### 5 8410-2 ####[facility] LABCLIA [id number] [place] [address] [place] WBC (Bld) [#/Vol] 10.80 10*3/uL Normal 3.70-11.[address] [facility] Comment on above: Order Comment: Speci men Type: BLOOD SPECIMENOrdering Facility: [facility] Address: [address] [place] [address] Performed By: #### 5 8410-2 ####[facility] LABIA [id number] [place] [address] [place] CONSULT PROGon 09-02-2024 CONSULT PROG Normal [facility] Magnesium SerPl-mCncon 09-02 Magnesium [Mass/Vol] 1.9 mg/dL Normal 1.7-2.[address] [facility] Comment on above: Order Comment: Speci men Type: BLOOD SPECIMENOrdering Facility: [facility] Address: [address] [place] [address] Performed By: #### 1 9123-9, 2777-1, 75890-1 ####[facility] LABIA [id number] [place] [address] [place] Phosphate SerPl-mCncon 09-02 Phosphate [Mass/Vol] 2.5 mg/dL Low 2.7-4.[address] [facility] Comment on above: Order Comment: Speci men Type: BLOOD SPECIMENOrdering Facility: [facility] Address: [address] [place] [address] [place] [address] Performed By: #### 1 9123-9, 2777-1, 10917-2 ####[facility] LABIA [id number] [place] [address] [place] Basic metabolic 2000 panelon 09-01-2024 Anion gap [Moles/Vol] 14 mmol/L Normal 8-15 [facility] Comment on above: Order Comment: Speci men Type: BLOOD SPECIMENOrdering Facility: [facility] Address: [address] [place] [address] Performed By: #### 2 4321-2, , 2776-10 ####[facility] LABCLIA [id number] [facility] [address] [address] [place] Calcium [Mass/Vol] 8.4 mg/dL Low 8.5-10.2 [facility] Comment on above: Order Comment: Speci men Type: BLOOD SPECIMENOrdering Facility: [facility] Address: [address] [place] [address] Performed By: #### 2 4321-2, , 2776-10 ####[facility] LABCLIA [id number] [place] [address] [place] Chloride [Moles/Vol] 102 mmol/L Normal 98-[address] [facility] Comment on above: Order Comment: Speci men Type: BLOOD SPECIMENOrdering Facility: [facility] Address: [address] [place] [address] Performed By: #### 2 4321-2, , 2776-10 ####[facility] LABCLIA [id number] [place] [id number] [place] CO2 [Moles/Vol] 24 mmol/L Normal 22-30 [facility] Comment on above: Order Comment: Speci men Type: BLOOD SPECIMENOrdering Facility: [facility] Address: [address] [place] [address] Performed By: #### 2 4321-2, , 2776-10 ####[facility] LABCLIA [id number] [facility] [address] [address] [place] Creatinine [Mass/Vol] 0.73 mg/dL Normal 0.73-1.22 [facility] Comment on above: Order Comment: Speci men Type: BLOOD SPECIMENOrdering Facility: [facility] Address: [address] [place] [id number] Performed By: #### 2 4321-2, 84765-1, 2777-1 ####[facility] LABCLIA [id number] [place] [address] [place] Creatinine and Glomerular filtration rate.predicted panel (S/P/Bld) 108 mL/min/1.73m??? Normal >=60 [facility] Comment on above: Order Comment: Speci men Type: BLOOD SPECIMENOrdering Facility: [facility] Address: [address] [place] [address] Result Comment: Marisa mated Glomerular Filtration Rate (eGFR) is calculated using the 2020 CKD-EPI creatinine equation. This equation utilizes serum creatinine, sex, and age as parameters. The creatinine assay has traceable calibration to isotope dilution-mass spectrometry. Refer to KDIGO guidelines for clinical interpretation. In patients with unstable renal function, e.g. those with acute kidney injury, the eGFR may not accurately reflect actual GFR. Performed By: #### 2 4321-2, 82879-4, 2777-1 ####[facility] LABCLIA [id number] [place] [id number] [place] Glucose [Mass/Vol] 158 mg/dL High 74-99 [facility] Comment on above: Order Comment: Yasmini men Type: BLOOD SPECIMENOrdering Facility: [facility] Address: [address] [place] [address] Result Comment: The [place] Diabetes Association (ADA) provides guidance for cutoff values for fasting glucose and random glucose. The ADA defines fasting as no caloric intake for at least 8 hours. Fasting plasma glucose results between 100 to 125 mg/dL indicate increased risk for diabetes (prediabetes).Fasting plasma glucose results greater than or equal to 126 mg/dL meet the criteria for diagnosis of diabetes. In the absence of unequivocal hyperglycemia, results should be confirmed by repeat testing. In a patient with classic symptoms of hyperglycemia or hyperglycemic crisis, random plasma glucose results greater than or equal to 200 mg/dL meet the criteria for diagnosis of diabetes.Reference: Standards of Medical Care in Diabetes 2016, [place] [employer]. Diabetes Care. 2016.39(Suppl 1). Performed By: #### 2 4321-2, , 2776-10 ####[facility] LABCLIA [id number] [place] [id number] [place] Potassium [Moles/Vol] 4.0 mmol/L Normal 3.7-5.1 [facility] Comment on above: Order Comment: Speci men Type: BLOOD SPECIMENOrdering Facility: [facility] Address: [address] [place] [address] Performed By: #### 2 4321-2, , 2776-10 ####[facility] LABIA [id number] [place] [address] [place] Sodium [Moles/Vol] 140 mmol/L Normal 136-144 [facility] Comment on above: Order Comment: Speci men Type: BLOOD SPECIMENOrdering Facility: [facility] Address: [address] [place] [address] Performed By: #### 2 4321-2, , 2776-10 ####[facility] LABIA [id number] [place] [address] [place] Urea nitrogen [Mass/Vol] 14 mg/dL Normal 9-24 [facility] Comment on above: Order Comment: Speci men Type: BLOOD SPECIMENOrdering Facility: [facility] Address: [address] [place] [address] Performed By: #### 2 4321-2, , 2776-10 ####[facility] LABIA [id number] [place] [id number] [place] CASE MANAGEMon 09-01-2024 CASE MANAGEM Normal [facility] CBC panel Auto (Bld)on 09-01 Erythrocyte distribution width (RBC) [Ratio] 13.1 % Normal 11.5-15.0 [facility] Comment on above: Order Comment: Speci men Type: BLOOD SPECIMENOrdering Facility: [facility] Address: [address] [place] [address] Performed By: #### 5 8410-2 ####[facility] LABIA [id number] [place] [address] [place] Hematocrit (Bld) [Volume fraction] 24.5 % Low 39.0-51.0 [facility] Comment on above: Order Comment: Speci men Type: BLOOD SPECIMENOrdering Facility: [facility] Address: [address] [place] [address] Performed By: #### 5 8410-2 ####[facility] [id number] [place] [address] [place] Hemoglobin (Bld) [Mass/Vol] 7.8 g/dL Low 13.0-17.0 [facility] Comment on above: Order Comment: Speci men Type: BLOOD SPECIMENOrdering Facility: [facility] Address: [address] [place] [address] Performed By: #### 5 8410-2 ####[facility] LABIA [id number] [place] [address] [place] MCH (RBC) [Entitic mass] 29.2 pg Normal 26.0-34.0 [facility] Comment on above: Order Comment: Speci men Type: BLOOD SPECIMENOrdering Facility: [facility] Address: [address] [place] [address] Performed By: #### 5 8410-2 ####[facility] LABIA [id number] [place] [address] [place] MCHC (RBC) [Mass/Vol] 31.8 g/dL Normal 30.5-36.0 [facility] Comment on above: Order Comment: Speci men Type: BLOOD SPECIMENOrdering Facility: [facility] Address: [address] [place] [address] Performed By: #### 5 8410-2 ####[facility] LABIA [id number] [place] [address] [place] MCV (RBC) [Entitic vol] 91.8 fL Normal 80.0-100.0 [facility] Comment on above: Order Comment: Speci men Type: BLOOD SPECIMENOrdering [facility] Address: [address] [place] [address] Performed By: #### 5 8410-2 ####[facility] LABIA [id number] [place] [address] [place] Nucleated RBC (Bld) [#/Vol] 10*3/uL Normal <0.01 [facility] Comment on above: Order Comment: Speci men Type: BLOOD SPECIMENOrdering Facility: [facility] Address: [address] [place] [address] Performed By: #### 5 8410-2 ####[facility] [id number] [place] [address] [place] Platelet mean volume (Bld) [Entitic vol] 9.6 fL Normal 9.0-12.7 [facility] Comment on above: Order Comment: Speci men Type: BLOOD SPECIMENOrdering Facility: [facility] Address: [address] [place] [address] Performed By: #### 5 8410-2 ####[facility] LABIA [id number] [place] [address] [place] Platelets (Bld) [#/Vol] 349 10*3/uL Normal 150-400 [facility] Comment on above: Order Comment: Speci men Type: BLOOD SPECIMENOrdering Facility: [facility] Address: [address] [place] [address] Performed By: #### 5 8410-2 ####[facility] LABIA [id number] [place] [address] [place] RBC (Bld) [#/Vol] 2.67 10*6/uL Low 4.20-6.[address] [facility] Comment on above: Order Comment: Speci men Type: BLOOD SPECIMENOrdering Facility: [facility] Address: [address] [place] [address] Performed By: #### 5 8410-2 ####[facility] LABCLIA [id number] [place] [address] [place] WBC (Bld) [#/Vol] 9.51 10*3/uL Normal 3.70-11.[address] [facility] Comment on above: Order Comment: Speci men Type: BLOOD SPECIMENOrdering Facility: [facility] Address: [address] [place] [address] Performed By: #### 5 8410-2 ####[facility] LABCLIA [id number] [place] [address] [place] CONSULT PROGon 09-01-2024 CONSULT PROG Normal [facility] Magnesium SerPl-mCncon 09-01 Magnesium [Mass/Vol] 1.9 mg/dL Normal 1.7-2.[address] [facility] Comment on above: Order Comment: Speci men Type: BLOOD SPECIMENOrdering Facility: [facility] Address: [address] [place] [address] Performed By: #### 2 4321-2, , 2776-10 ####[facility] LABCLIA [id number] [place] [address] [place] Phosphate SerPl-mCncon 09-01 Phosphate [Mass/Vol] 2.6 mg/dL Low 2.7-4.[address] [facility] Comment on above: Order Comment: Speci men Type: BLOOD SPECIMENOrdering Facility: [facility] Address: [address] [place] [address] Performed By: #### 2 4321-2, 59029-8, 277- ####[facility] LABCLIA [id number] [address] [address] [place] THERAPY NTon 09-01-2024 THERAPY NT Normal [facility] Basic metabolic 2000 panelon 08-31-2024 Anion gap [Moles/Vol] 12 mmol/L Normal 8-15 [facility] Comment on above: Order Comment: Speci men Type: BLOOD SPECIMENOrdering Facility: [facility] Address: [address] [place] [address] Performed By: #### 2 777-1, 63668-6, ####[facility] LABCLIA [id number] [address] [address] [place] Calcium [Mass/Vol] 8.8 mg/dL Normal 8.5-10.2 [facility] Comment on above: Order Comment: Speci men Type: BLOOD SPECIMENOrdering Facility: [facility] Address: [address] [place] [address] Performed By: #### 2 777-1, 12152-9, ####[facility] LABCLIA [id number] [place] [address] [place] Chloride [Moles/Vol] 100 mmol/L Normal 98-[address] [facility] Comment on above: Order Comment: Speci men Type: BLOOD SPECIMENOrdering Facility: [facility] Address: [address] [place] [address] Performed By: #### 2 777-1, 39541-5, ####[facility] LABCLIA [id number] [address] [address] [place] CO2 [Moles/Vol] 29 mmol/L Normal 22-30 [facility] Comment on above: Order Comment: Speci men Type: BLOOD SPECIMENOrdering Facility: [facility] Address: [address] [place] [address] Performed By: #### 2 777-1, 84944-1, ####[facility] LABCLIA [id number] [place] [address] [place] Creatinine [Mass/Vol] 0.80 mg/dL Normal 0.73-1.22 [facility] Comment on above: Order Comment: Theo narvaez Type: BLOOD SPECIMENOrdering Facility: [facility] Address: [address] [place] [address] Performed By: #### 2 777-1, 67024-0, ####[facility] [id number] [place] [address] [place] [facility] Creatinine and Glomerular filtration rate.predicted panel (S/P/Bld) 105 mL/min/1.73m??? Normal >=60 [facility] Comment on above: Order Comment: Theo narvaez Type: BLOOD SPECIMENOrdering Facility: [facility] Address: [address] [place] [address] Result Comment: Marisa mated Glomerular Filtration Rate (eGFR) is calculated using the 2020 CKD-EPI creatinine equation. This equation utilizes serum creatinine, sex, and age as parameters. The creatinine assay has traceable calibration to isotope dilution-mass spectrometry. Refer to KDIGO guidelines for clinical interpretation. In patients with unstable renal function, e.g. those with acute kidney injury, the eGFR may not accurately reflect actual GFR. Performed By: #### 2 777-1, , ####[facility] [id number] [place] [address] [place] Glucose [Mass/Vol] 190 mg/dL High 74-99 [facility] Comment on above: Order Comment: Theo narvaez Type: BLOOD SPECIMENOrdering Facility: [facility] Address: [address] [place] [address] Result Comment: The [place] Diabetes Association (ADA) provides guidance for cutoff values for fasting glucose and random glucose. The ADA defines fasting as no caloric intake for at least 8 hours. Fasting plasma glucose results between 100 to 125 mg/dL indicate increased risk for diabetes (prediabetes).Fasting plasma glucose results greater than or equal to 126 mg/dL meet the criteria for diagnosis of diabetes. In the absence of unequivocal hyperglycemia, results should be confirmed by repeat testing. In a patient with classic symptoms of hyperglycemia or hyperglycemic crisis, random plasma glucose results greater than or equal to 200 mg/dL meet the criteria for diagnosis of diabetes.Reference: Standards of Medical Care in Diabetes 2016, [place] Diabetes Association. Diabetes Care. 2016.39(Suppl 1). Performed By: #### 2 777-1, 69161-4, ####[facility] LABCLIA [id number] [place] [address] [place] Potassium [Moles/Vol] 4.0 mmol/L Normal 3.7-5.1 [facility] Comment on above: Order Comment: Speci men Type: BLOOD SPECIMENOrdering Facility: [facility] Address: [address] [place] [address] Performed By: #### 2 777-1, , ####[facility] LABCLIA [id number] [place] [address] [place] Sodium [Moles/Vol] 141 mmol/L Normal 136-144 [facility] Comment on above: Order Comment: Speci men Type: BLOOD SPECIMENOrdering Facility: [facility] Address: [address] [place] [address] Performed By: #### 2 777-1, 31121-4, ####[facility] LABCLIA [id number] [place] [address] [place] Urea nitrogen [Mass/Vol] 12 mg/dL Normal 9-24 [facility] Comment on above: Order Comment: Speci men Type: BLOOD SPECIMENOrdering Facility: [facility] Address: [address] [place] [address] Performed By: #### 2 777-1, 21957-3, ####[facility] LABCLIA [id number] [address] [address] [place] CBC panel Auto (Bld)on 08-31 Erythrocyte distribution width (RBC) [Ratio] 13.1 % Normal 11.5-15.0 [facility] Comment on above: Order Comment: Speci men Type: BLOOD SPECIMENOrdering Facility: [facility] Address: [address] [place] [address] Performed By: #### 5 8410-2 ####[facility] LABCLIA [id number] [place] [address] [place] Hematocrit (Bld) [Volume fraction] 25.9 % Low 39.0-51.0 [facility] Comment on above: Order Comment: Speci men Type: BLOOD SPECIMENOrdering Facility: [facility] Address: [address] [place] [address] Performed By: #### 5 8410-2 ####[facility] LABCLIA [id number] [address] [place] Hemoglobin (Bld) [Mass/Vol] 8.3 g/dL Low 13.0-17.0 [facility] Comment on above: Order Comment: Speci men Type: BLOOD SPECIMENOrdering Facility: [facility] Address: [address] [place] [address] Performed By: #### 5 8410-2 ####[facility] LABIA [id number] [place] [address] [place] MCH (RBC) [Entitic mass] 29.4 pg Normal 26.0-34.0 [facility] Comment on above: Order Comment: Speci men Type: BLOOD SPECIMENOrdering Facility: [facility] Address: [address] [place] [address] Performed By: #### 5 8410-2 ####[facility] LABCLIA [id number] [place] [address] [place] MCHC (RBC) [Mass/Vol] 32.0 g/dL Normal 30.5-36.0 [facility] Comment on above: Order Comment: Speci men Type: BLOOD SPECIMENOrdering Facility: [facility] Address: [address] [place] [address] Performed By: #### 5 8410-2 ####[facility] LABIA [id number] [place] [address] [place] MCV (RBC) [Entitic vol] 91.8 fL Normal 80.0-100.0 [facility] Comment on above: Order Comment: Speci men Type: BLOOD SPECIMENOrdering Facility: [facility] Address: [address] [place] [address] Performed By: #### 5 8410-2 ####[facility] LABIA [id number] [place] [address] [place] Nucleated RBC (Bld) [#/Vol] 10*3/uL Normal <0.01 [facility] Comment on above: Order Comment: Speci men Type: BLOOD SPECIMENOrdering Facility: [facility] Address: [address] [place] [address] Performed By: #### 5 8410-2 ####[facility] LABIA [id number] [place] [address] [place] Platelet mean volume (Bld) [Entitic vol] 9.6 fL Normal 9.0-12.7 [facility] Comment on above: Order Comment: Speci men Type: BLOOD SPECIMENOrdering Facility: [facility] Address: [address] [place] [address] Performed By: #### 5 8410-2 ####[facility] LABIA [id number] [place] [address] [place] Platelets (Bld) [#/Vol] 277 10*3/uL Normal 150-400 [facility] Comment on above: Order Comment: Speci men Type: BLOOD SPECIMENOrdering Facility: [facility] Address: [address] [place] [address] Performed By: #### 5 8410-2 ####[facility] [id number] [place] [address] [place] RBC (Bld) [#/Vol] 2.82 10*6/uL Low 4.20-6.[address] [facility] Comment on above: Order Comment: Speci men Type: BLOOD SPECIMENOrdering Facility: [facility] Address: [address] [place] [address] Performed By: #### 5 8410-2 ####[facility] [id number] [place] [address] [place] WBC (Bld) [#/Vol] 14.25 10*3/uL High 3.70-11.[address] [facility] Comment on above: Order Comment: Speci men Type: BLOOD SPECIMENOrdering Facility: [facility] Address: [address] [place] [address] Performed By: #### 5 8410-2 ####[facility] [id number] [place] [address] [place] CONSULT PROGon 08-31-2024 CONSULT PROG Normal [facility] Magnesium SerPl-ncon 08-31 Magnesium [Mass/Vol] 2.0 mg/dL Normal 1.7-2.[address] [facility] Comment on above: Order Comment: Speci men Type: BLOOD SPECIMENOrdering Facility: [facility] Address: [address] [place] [address] Performed By: #### 2 777-1, 50938-7, 99545-1 ####[facility] [id number] [place] [address] [place] Phosphate SerPl-mCncon 08-31 Phosphate [Mass/Vol] 2.8 mg/dL Normal 2.7-4.[address] [facility] Comment on above: Order Comment: Speci men Type: BLOOD SPECIMENOrdering Facility: [facility] Address: [address] [place], [place] [address] Performed By: #### 2 777-1, 52515-1, 96402-8 ####[facility] LABIA [id number] [place] [address] [place] C peptide Nataliial-mCncrupert 08-30 C peptide [Mass/Vol] 0.2 ng/mL Low 1.1-4.[address] [facility] Comment on above: Order Comment: Speci men Type: BLOOD SPECIMENOrdering Facility: [facility] Address: [address] [place] [address] Performed By: #### 1 986-9 ####[facility] LABIA [id number] [place] [address] [place] CBC W Auto Differential pane l (Bld)on 08-30-2024 Basophils (Bld) [#/Vol] 0.05 10*3/uL Normal <0.11 [facility] Comment on above: Order Comment: Speci men Type: BLOOD SPECIMENOrdering Facility: [facility] Address: [address] [place] [address] Performed By: #### 5 7021-8 ####[facility] [id number] [place] [address] [place] Basophils/100 WBC (Bld) 0.3 % Normal [facility] Comment on above: Order Comment: Speci men Type: BLOOD SPECIMENOrdering Facility: [facility] Address: [address] [place] [address] Performed By: #### 5 7021-8 ####[facility] LABIA [id number] [place] [address] [place] Differential cell count method Nom (Bld) Auto Normal [facility] Comment on above: Order Comment: Speci men Type: BLOOD SPECIMENOrdering Facility: [facility] Address: [address] [place] [address] Performed By: #### 5 7021-8 ####[facility] LABCLIA [id number] [place] [address] [place] Eosinophils (Bld) [#/Vol] 0.05 10*3/uL Normal <0.46 [facility] Comment on above: Order Comment: Speci men Type: BLOOD SPECIMENOrdering Facility: [facility] Address: [address] [place] [address] Performed By: #### 5 7021-8 ####[facility] LABCLIA [id number] [place] [address] [place] Eosinophils/100 WBC (Bld) 0.3 % Normal [facility] Comment on above: Order Comment: Speci men Type: BLOOD SPECIMENOrdering Facility: [facility] Address: [address] [place] [address] Performed By: #### 5 7021-8 ####[facility] LABIA [id number] [place] [address] [place] Erythrocyte distribution width (RBC) [Ratio] 13.1 % Normal 11.5-15.0 [facility] Comment on above: Order Comment: Speci men Type: BLOOD SPECIMENOrdering Facility: [facility] Address: [address] [place] [address] Performed By: #### 5 7021-8 ####[facility] LABIA [id number] [place] [address] [place] Hematocrit (Bld) [Volume fraction] 21.9 % Low 39.0-51.0 [facility] Comment on above: Order Comment: Speci men Type: BLOOD SPECIMENOrdering Facility: [facility] Address: [address] [place] [address] Performed By: #### 5 7021-8 ####[facility] LABCLIA [id number] [place] [address] [place] Hemoglobin (Bld) [Mass/Vol] 7.2 g/dL Low 13.0-17.0 [facility] Comment on above: Order Comment: Speci men Type: BLOOD SPECIMENOrdering Facility: [facility] Address: [address] [place] [address] Performed By: #### 5 7021-8 ####[facility] LABCLIA [id number] [place] [address] [place] Immature granulocytes (Bld) [#/Vol] 0.06 10*3/uL Normal <0.10 [facility] Comment on above: Order Comment: Speci men Type: BLOOD SPECIMENOrdering Facility: [facility] Address: [address] [place] [address] Performed By: #### 5 7021-8 ####[facility] LABCLIA [id number] [place] [address] [place] Immature granulocytes/100 WBC (Bld) 0.4 % Normal [facility] Comment on above: Order Comment: Speci men Type: BLOOD SPECIMENOrdering Facility: [facility] Address: [address] [place] [address] Performed By: #### 5 7021-8 ####[facility] LABCLIA [id number] [place] [address] [place] Lymphocytes (Bld) [#/Vol] 1.59 10*3/uL Normal 1.00-4.00 [facility] Comment on above: Order Comment: Speci men Type: BLOOD SPECIMENOrdering Facility: [facility] Address: [address] [place] [address] Performed By: #### 5 7021-8 ####[facility] LABCLIA [id number] [place] [address] [place] Lymphocytes/100 WBC (Bld) 9.8 % Normal [facility] Comment on above: Order Comment: Speci men Type: BLOOD SPECIMENOrdering Facility: [facility] Address: [address] [place] [address] Performed By: #### 5 7021-8 ####[facility] [id number] [place] [address] [place] MCH (RBC) [Entitic mass] 29.0 pg Normal 26.0-34.0 [facility] Comment on above: Order Comment: Speci men Type: BLOOD SPECIMENOrdering Facility: [facility] Address: [address] [place] [address] Performed By: #### 5 7021-8 ####[facility] [id number] [place] [address] [place] MCHC (RBC) [Mass/Vol] 32.9 g/dL Normal 30.5-36.0 [facility] Comment on above: Order Comment: Speci men Type: BLOOD SPECIMENOrdering Facility: [facility] Address: [address] [place] [address] Performed By: #### 5 7021-8 ####[facility] [id number] [place] [address] [place] MCV (RBC) [Entitic vol] 88.3 fL Normal 80.0-100.0 [facility] Comment on above: Order Comment: Speci men Type: BLOOD SPECIMENOrdering Facility: [facility] Address: [address] [place] [address] Performed By: #### 5 7021-8 ####[facility] [id number] [place] [address] [place] Monocytes (Bld) [#/Vol] 1.67 10*3/uL High <0.87 [facility] Comment on above: Order Comment: Speci men Type: BLOOD SPECIMENOrdering Facility: [facility] Address: [address] [place] [address] Performed By: #### 5 7021-8 ####[facility] [id number] [place] [address] [place] Monocytes/100 WBC (Bld) 10.3 % Normal [facility] Comment on above: Order Comment: Speci men Type: BLOOD SPECIMENOrdering Facility: [facility] Address: [address] [place] [address] Performed By: #### 5 7021-8 ####[facility] LABCLIA [id number] [place] [address] [place] Neutrophils (Bld) [#/Vol] 12.86 10*3/uL High 1.45-7.50 [facility] Comment on above: Order Comment: Speci men Type: BLOOD SPECIMENOrdering Facility: [facility] Address: [address] [place] [address] Performed By: #### 5 7021-8 ####[facility] LABCLIA [id number] [place] [address] [place] Neutrophils/100 WBC (Bld) 78.9 % Normal [facility] Comment on above: Order Comment: Speci men Type: BLOOD SPECIMENOrdering Facility: [facility] Address: [address] [place] [address] Performed By: #### 5 7021-8 ####[facility] LABCLIA [id number] [place] [address] [place] Nucleated RBC (Bld) [#/Vol] 10*3/uL Normal <0.01 [facility] Comment on above: Order Comment: Speci men Type: BLOOD SPECIMENOrdering Facility: [facility] Address: [address] [place] [address] Performed By: #### 5 7021-8 ####[facility] LABCLIA [id number] [place] [address] [place] Nucleated RBC/100 WBC (Bld) [Ratio] 0.0 /100 WBC Normal [facility] Comment on above: Order Comment: Speci men Type: BLOOD SPECIMENOrdering Facility: [facility] Address: [address] [place] [address] Performed By: #### 5 7021-8 ####[facility] LABCLIA [id number] [facility] [address] [place] Platelet mean volume (Bld) [Entitic vol] 9.7 fL Normal 9.0-12.7 [facility] Comment on above: Order Comment: Speci men Type: BLOOD SPECIMENOrdering Facility: [facility] Address: [address] [place] [address] Performed By: #### 5 7021-8 ####[facility] LABCLIA [id number] [facility] [place] [address] [place] Platelets (Bld) [#/Vol] 207 10*3/uL Normal 150-400 [facility] Comment on above: Order Comment: Speci men Type: BLOOD SPECIMENOrdering Facility: [facility] Address: [address] [place] [address] Performed By: #### 5 7021-8 ####[facility] LABCLIA [id number] [place] [address] [place] RBC (Bld) [#/Vol] 2.48 10*6/uL Low 4.20-6.[address] [facility] Comment on above: Order Comment: Speci men Type: BLOOD SPECIMENOrdering Facility: [facility] Address: [address] [place] [address] Performed By: #### 5 7021-8 ####[facility] LABCLIA [id number] [facility] [place] [id number] [place] WBC (Bld) [#/Vol] 16.28 10*3/uL High 3.70-11.[address] [facility] Comment on above: Order Comment: Speci men Type: BLOOD SPECIMENOrdering Facility: [facility] Address: [address] [place] [address] Performed By: #### 5 7021-8 ####[facility] LABCLIA [id number] [place] [address] [place] CBC panel Auto (Bld)on 08-30 Erythrocyte distribution width (RBC) [Ratio] 13.1 % Normal 11.5-15.0 [facility] Comment on above: Order Comment: Speci men Type: BLOOD SPECIMENOrdering Facility: [facility] Address: [address] [place] [address] Performed By: #### 5 8410-2 ####[facility] LABIA [id number] [place] [address] [place] Hematocrit (Bld) [Volume fraction] 26.8 % Low 39.0-51.0 [facility] Comment on above: Order Comment: Speci men Type: BLOOD SPECIMENOrdering Facility: [facility] Address: [address] [place] [address] Performed By: #### 5 8410-2 ####[facility] LABIA [id number] [address] [place] Hemoglobin (Bld) [Mass/Vol] 8.9 g/dL Low 13.0-17.0 [facility] Comment on above: Order Comment: Speci men Type: BLOOD SPECIMENOrdering Facility: [facility] Address: [address] [place] [address] Performed By: #### 5 8410-2 ####[facility] LABIA [id number] [place] [address] [place] MCH (RBC) [Entitic mass] 29.6 pg Normal 26.0-34.0 [facility] Comment on above: Order Comment: Speci men Type: BLOOD SPECIMENOrdering Facility: [facility] Address: [address] [place] [address] Performed By: #### 5 8410-2 ####[facility] [id number] [place] [address] [place] MCHC (RBC) [Mass/Vol] 33.2 g/dL Normal 30.5-36.0 [facility] Comment on above: Order Comment: Speci men Type: BLOOD SPECIMENOrdering Facility: [facility] Address: [address] [place] [address] Performed By: #### 5 8410-2 ####[facility] [id number] [place] [address] [place] MCV (RBC) [Entitic vol] 89.0 fL Normal 80.0-100.0 [facility] Comment on above: Order Comment: Speci men Type: BLOOD SPECIMENOrdering Facility: [facility] Address: [address] [place] [address] Performed By: #### 5 8410-2 ####[facility] [id number] [place] [address] [place] Nucleated RBC (Bld) [#/Vol] 10*3/uL Normal <0.01 [facility] Comment on above: Order Comment: Speci men Type: BLOOD SPECIMENOrdering Facility: [facility] Address: [address] [place] [address] Performed By: #### 5 8410-2 ####[facility] LABIA [id number] [place] [address] [place] Platelet mean volume (Bld) [Entitic vol] 10.6 fL Normal 9.0-12.7 [facility] Comment on above: Order Comment: Speci men Type: BLOOD SPECIMENOrdering Facility: [facility] Address: [address] [place] [address] Performed By: #### 5 8410-2 ####[facility] LABIA [id number] [place] [address] [place] Platelets (Bld) [#/Vol] 223 10*3/uL Normal 150-400 [facility] Comment on above: Order Comment: Speci men Type: BLOOD SPECIMENOrdering Facility: [facility] Address: [address] [place] [address] Performed By: #### 5 8410-2 ####[facility] LABCLIA [id number] [place] [address] [place] RBC (Bld) [#/Vol] 3.01 10*6/uL Low 4.20-6.[address] [facility] Comment on above: Order Comment: Speci men Type: BLOOD SPECIMENOrdering Facility: [facility] Address: [address] [place] [address] Performed By: #### 5 8410-2 ####[facility] LABCLIA [id number] [place] [address] [place] WBC (Bld) [#/Vol] 17.79 10*3/uL High 3.70-11.[address] [facility] Comment on above: Order Comment: Speci men Type: BLOOD SPECIMENOrdering Facility: [facility] Address: [address] [place] [address] Performed By: #### 5 8410-2 ####[facility] LABIA [id number] [place] [address] [place] Erythrocyte distribution width (RBC) [Ratio] 12.9 % Normal 11.5-15.0 [facility] Comment on above: Order Comment: Speci men Type: BLOOD SPECIMENOrdering Facility: [facility] Address: [address] [place] [address] Performed By: #### 5 8410-2 ####[facility] LABCLIA [id number] [place] [address] [place] Hematocrit (Bld) [Volume fraction] 26.1 % Low 39.0-51.0 [facility] Comment on above: Order Comment: Speci men Type: BLOOD SPECIMENOrdering Facility: [facility] Address: [address] [place] [address] Performed By: #### 5 8410-2 ####[facility] LABCLIA [id number] [place] [address] [place] Hemoglobin (Bld) [Mass/Vol] 8.8 g/dL Low 13.0-17.0 [facility] Comment on above: Order Comment: Speci men Type: BLOOD SPECIMENOrdering Facility: [facility] Address: [address] [place] [address] Performed By: #### 5 8410-2 ####[facility] LABIA [id number] [place] [address] [place] MCH (RBC) [Entitic mass] 29.7 pg Normal 26.0-34.0 [facility] Comment on above: Order Comment: Speci men Type: BLOOD SPECIMENOrdering Facility: [facility] Address: [address] [place] [address] Performed By: #### 5 8410-2 ####[facility] LABIA [id number] [address] [place] MCHC (RBC) [Mass/Vol] 33.7 g/dL Normal 30.5-36.0 [facility] Comment on above: Order Comment: Speci men Type: BLOOD SPECIMENOrdering Facility: [facility] Address: [address] [place] [address] Performed By: #### 5 8410-2 ####[facility] [id number] [place] [address] [place] MCV (RBC) [Entitic vol] 88.2 fL Normal 80.0-100.0 [facility] Comment on above: Order Comment: Speci men Type: BLOOD SPECIMENOrdering Facility: [facility] Address: [address] [place] [address] Performed By: #### 5 8410-2 ####[facility] LABIA [id number] [place] [address] [place] Nucleated RBC (Bld) [#/Vol] 10*3/uL Normal <0.01 [facility] Comment on above: Order Comment: Speci men Type: BLOOD SPECIMENOrdering Facility: [facility] Address: [address] [place] [address] Performed By: #### 5 8410-2 ####[facility] LABIA [id number] [place] [address] [place] Platelet mean volume (Bld) [Entitic vol] 9.2 fL Normal 9.0-12.7 [facility] Comment on above: Order Comment: Speci men Type: BLOOD SPECIMENOrdering Facility: [facility] Address: [address] [place] [address] Performed By: #### 5 8410-2 ####[facility] LABIA [id number] [place] [address] [place] Platelets (Bld) [#/Vol] 194 10*3/uL Normal 150-400 [facility] Comment on above: Order Comment: Speci men Type: BLOOD SPECIMENOrdering Facility: [facility] Address: [address] [place] [address] Performed By: #### 5 8410-2 ####[facility] LABIA [id number] [place] [address] [place] RBC (Bld) [#/Vol] 2.96 10*6/uL Low 4.20-6.[address] [facility] Comment on above: Order Comment: Speci men Type: BLOOD SPECIMENOrdering Facility: [facility] Address: [address] [place] [address] Performed By: #### 5 8410-2 ####[facility] LABIA [id number] [place] [address] [place] WBC (Bld) [#/Vol] 17.35 10*3/uL High 3.70-11.[address] [facility] Comment on above: Order Comment: Speci men Type: BLOOD SPECIMENOrdering Facility: [facility] Address: [address] [place] [address] Performed By: #### 5 8410-2 ####[facility] LABIA [id number] [place] [address] [place] Erythrocyte distribution width (RBC) [Ratio] 12.9 % Normal 11.5-15.0 [facility] Comment on above: Order Comment: Speci men Type: BLOOD SPECIMENOrdering Facility: [facility] Address: [address] [place] [address] Performed By: #### 5 8410-2 ####[facility] LABIA [id number] [place] [address] [place] Hematocrit (Bld) [Volume fraction] 22.0 % Low 39.0-51.0 [facility] Comment on above: Order Comment: Speci men Type: BLOOD SPECIMENOrdering Facility: [facility] Address: [address] [place] [address] Performed By: #### 5 8410-2 ####[facility] LABIA [id number] [place] [address] [place] Hemoglobin (Bld) [Mass/Vol] 7.1 g/dL Low 13.0-17.0 [facility] Comment on above: Order Comment: Speci men Type: BLOOD SPECIMENOrdering Facility: [facility] Address: [address] [place] [address] Performed By: #### 5 8410-2 ####[facility] LABIA [id number] [place] [address] [place] MCH (RBC) [Entitic mass] 29.0 pg Normal 26.0-34.0 [facility] Comment on above: Order Comment: Speci men Type: BLOOD SPECIMENOrdering Facility: [facility] Address: [address] [place] [address] Performed By: #### 5 8410-2 ####[facility] LABCLIA [id number] [place] [address] [place] MCHC (RBC) [Mass/Vol] 32.3 g/dL Normal 30.5-36.0 [facility] Comment on above: Order Comment: Speci men Type: BLOOD SPECIMENOrdering Facility: [facility] Address: [address] [place] [address] Performed By: #### 5 8410-2 ####[facility] LABCLIA [id number] [place] [address] [place] MCV (RBC) [Entitic vol] 89.8 fL Normal 80.0-100.0 [facility] Comment on above: Order Comment: Speci men Type: BLOOD SPECIMENOrdering Facility: [facility] Address: [address] [place] [address] Performed By: #### 5 8410-2 ####[facility] LABCLIA [id number] [place] [address] [place] Nucleated RBC (Bld) [#/Vol] 10*3/uL Normal <0.01 [facility] Comment on above: Order Comment: Speci men Type: BLOOD SPECIMENOrdering Facility: [facility] Address: [address] [place] [address] Performed By: #### 5 8410-2 ####[facility] LABCLIA [id number] [place] [address] [place] Platelet mean volume (Bld) [Entitic vol] 9.5 fL Normal 9.0-12.7 [facility] Comment on above: Order Comment: Speci men Type: BLOOD SPECIMENOrdering Facility: [facility] Address: [address] [place] [address] Performed By: #### 5 8410-2 ####[facility] LABCLIA [id number] [place] [address] [place] Platelets (Bld) [#/Vol] 211 10*3/uL Normal 150-400 [facility] Comment on above: Order Comment: Speci men Type: BLOOD SPECIMENOrdering Facility: [facility] Address: [address] [place] [address] Performed By: #### 5 8410-2 ####[facility] LABCLIA [id number] [address] [address] [place] RBC (Bld) [#/Vol] 2.45 10*6/uL Low 4.20-6.[address] [facility] Comment on above: Order Comment: Speci men Type: BLOOD SPECIMENOrdering Facility: [facility] Address: [address] [place] [address] Performed By: #### 5 8410-2 ####[facility] LABCLIA [id number] [place] [address] [place] WBC (Bld) [#/Vol] 17.80 10*3/uL High 3.70-11.[address] [facility] Comment on above: Order Comment: Speci men Type: BLOOD SPECIMENOrdering Facility: [facility] Address: [address] [place] [address] Performed By: #### 5 8410-2 ####[facility] LABCLIA [id number] [place] [address] [place] CONSULT PROGon 08-30-2024 CONSULT PROG Normal [facility] CRP SerPl-mCncon 08-30-2024 CRP [Mass/Vol] 21.6 mg/dL High <0.9 [facility] Comment on above: Order Comment: Speci men Type: BLOOD SPECIMENOrdering Facility: [facility] Address: [address] [place] [address] Performed By: #### 2 4323-8, 2777-1, 50826-9, 1988- ####[facility] LABCLIA [id number] [address] [address] [place] Comprehensive metabolic 2000 panelon 08-30-2024 Albumin [Mass/Vol] 3.6 g/dL Low 3.9-4.9 [facility] Comment on above: Order Comment: Speci men Type: BLOOD SPECIMENOrdering Facility: [facility] Address: [address] [place] [address] Performed By: #### 2 4323-8, 277-, , 1988-02 ####[facility] LABCLIA [id number] [place] [address] [place] ALP [Catalytic activity/Vol] 63 U/L Normal 38-113 [facility] Comment on above: Order Comment: Speci men Type: BLOOD SPECIMENOrdering Facility: [facility] Address: [address] [place] [address] Result Comment: Resu lts may be falsely decreased due to interference from hemolysis. Suggest reorder as clinically indicated. Performed By: #### 2 4323-8, 27704-21, , 1988-02 ####[facility] LABCLIA [id number] [place] [address] [place] ALT [Catalytic activity/Vol] 80 U/L High 10-54 [facility] Comment on above: Order Comment: Speci men Type: BLOOD SPECIMENOrdering Facility: [facility] Address: [address] [place] [address] Result Comment: Resu lts may be falsely increased due to interference from hemolysis. Suggest reorder as clinically indicated. Performed By: #### 2 4323-8, 27704-21, , 1988-02 ####[facility] LABCLIA [id number] [address] [address] [place] Anion gap [Moles/Vol] 13 mmol/L Normal 8-15 [facility] Comment on above: Order Comment: Speci men Type: BLOOD SPECIMENOrdering Facility: [facility] Address: [address] [place] [address] Performed By: #### 2 4323-8, 27704-21, , 1988-02 ####[facility] LABCLIA [id number] [address] [address] [place] AST [Catalytic activity/Vol] 77 U/L High 14-40 [facility] Comment on above: Order Comment: Speci men Type: BLOOD SPECIMENOrdering Facility: [facility] Address: [address] [place] [address] Result Comment: Resu lts may be falsely increased due to interference from hemolysis. Suggest reorder as clinically indicated. Performed By: #### 2 4323-8, 2777-1, , 1988-02 ####[facility] LABCLIA [id number] [place] [address] [place] Bilirubin [Mass/Vol] 0.4 mg/dL Normal 0.2-1.[address] [facility] Comment on above: Order Comment: Speci men Type: BLOOD SPECIMENOrdering Facility: [facility] Address: [address] [place] [address] Performed By: #### 2 4323-8, 2777-, , 1988-02 ####[facility] LABCLIA [id number] [place] [address] [place] Calcium [Mass/Vol] 8.5 mg/dL Normal 8.5-10.2 [facility] Comment on above: Order Comment: Speci men Type: BLOOD SPECIMENOrdering Facility: [facility] Address: [address] [place] [address] Performed By: #### 2 4323-8, 2777-, , 1988-02 ####[facility] LABCLIA [id number] [place] [id number] [place] Chloride [Moles/Vol] 99 mmol/L Normal 98-[address] [facility] Comment on above: Order Comment: Speci men Type: BLOOD SPECIMENOrdering Facility: [facility] Address: [address] [place] [address] Performed By: #### 2 4323-8, 27704-21, , 1988-02 ####[facility] LABCLIA [id number] [place] [address] [place] CO2 [Moles/Vol] 25 mmol/L Normal 22-30 [facility] Comment on above: Order Comment: Speci men Type: BLOOD SPECIMENOrdering Facility: [facility] Address: [address] [place] [address] Performed By: #### 2 4323-8, 27704-21, , 1988-02 ####[facility] LABIA [id number] [place] [address] [place] Creatinine [Mass/Vol] 0.79 mg/dL Normal 0.73-1.22 [facility] Comment on above: Order Comment: Speci men Type: BLOOD SPECIMENOrdering Facility: [facility] Address: [address] [place] [address] Performed By: #### 2 4323-8, 27704-21, , 1988-02 ####[facility] LABCLIA [id number] [place] [address] [place] Creatinine and Glomerular filtration rate.predicted panel (S/P/Bld) 106 mL/min/1.73m??? Normal >=60 [facility] Comment on above: Order Comment: Speci men Type: BLOOD SPECIMENOrdering Facility: [facility] Address: [address] [place] [address] Result Comment: Marisa mated Glomerular Filtration Rate (eGFR) is calculated using the 2020 CKD-EPI creatinine equation. This equation utilizes serum creatinine, sex, and age as parameters. The creatinine assay has traceable calibration to isotope dilution-mass spectrometry. Refer to KDIGO guidelines for clinical interpretation. In patients with unstable renal function, e.g. those with acute kidney injury, the eGFR may not accurately reflect actual GFR. Performed By: #### 2 4323-8, 277-, , 1988-02 ####[facility] LABCLIA [id number] [place] [address] [place] Glucose [Mass/Vol] 203 mg/dL High 74-99 [facility] Comment on above: Order Comment: Theo narvaez Type: BLOOD SPECIMENOrdering Facility: [facility] Address: [address] [place] [address] Result Comment: The [place] [employer] (ADA) provides guidance for cutoff values for fasting glucose and random glucose. The ADA defines fasting as no caloric intake for at least 8 hours. Fasting plasma glucose results between 100 to 125 mg/dL indicate increased risk for diabetes (prediabetes).Fasting plasma glucose results greater than or equal to 126 mg/dL meet the criteria for diagnosis of diabetes. In the absence of unequivocal hyperglycemia, results should be confirmed by repeat testing. In a patient with classic symptoms of hyperglycemia or hyperglycemic crisis, random plasma glucose results greater than or equal to 200 mg/dL meet the criteria for diagnosis of diabetes.Reference: Standards of Medical Care in Diabetes 2016, [place] [employer]. Diabetes Care. 2016.39(Suppl 1). Performed By: #### 2 4323-8, 2777-1, , 1988-02 ####[facility] LABIA [id number] [place] [address] [place] Potassium [Moles/Vol] Normal [facility] Comment on above: Order Comment: Theo narvaez Type: BLOOD SPECIMENOrdering Facility: [facility] Address: [address] [place] [address] Result Comment: Unab le to assay due to interference from hemolysis. Suggest reorder as clinically indicated. Performed By: #### 2 4323-8, 2777-1, , 1988-02 ####[facility] LABIA [id number] [place] [address] [place] Protein [Mass/Vol] 5.9 g/dL Low 6.3-8.0 [facility] Comment on above: Order Comment: Yasmini brice Type: BLOOD SPECIMENOrdering Facility: [facility] Address: [address] [place] [address] Performed By: #### 2 4323-8, 2776-10, , 1988-02 ####[facility] LABCLIA [id number] [address] [address] [place] Sodium [Moles/Vol] 137 mmol/L Normal 136-144 [facility] Comment on above: Order Comment: Speci men Type: BLOOD SPECIMENOrdering Facility: [facility] Address: [address] [place], [place] [address] Performed By: #### 2 4323-8, 2776-10, , 1988-02 ####[facility] LABCLIA [id number] [address] [address] [place] Urea nitrogen [Mass/Vol] 9 mg/dL Normal 9-24 [facility] Comment on above: Order Comment: Speci men Type: BLOOD SPECIMENOrdering Facility: [facility] Address: [address] [place], [place] [address] Performed By: #### 2 4323-8, 2776-10, , 1988-02 ####[facility] LABCLIA [id number] [address] [address] [place] Albumin [Mass/Vol] 3.9 g/dL Normal 3.9-4.9 [facility] Comment on above: Order Comment: Speci men Type: BLOOD SPECIMENOrdering Facility: [facility] Address: [address] [place] [address] Performed By: #### 2 432-8, , 2776-10 ####[facility] LABIA [id number] [address] [address] [place] ALP [Catalytic activity/Vol] 56 U/L Normal 38-113 [facility] Comment on above: Order Comment: Speci men Type: BLOOD SPECIMENOrdering Facility: [facility] Address: [address] [place] [address] Performed By: #### 2 4323-8, , 2776-10 ####[facility] LABCLIA [id number] [address] [address] [place] ALT [Catalytic activity/Vol] 98 U/L High 10-54 [facility] Comment on above: Order Comment: Speci men Type: BLOOD SPECIMENOrdering Facility: [facility] Address: [address] [place] [address] Performed By: #### 2 4323-8, , 2776-10 ####[facility] LABCLIA [id number] [address] [address] [place] Anion gap [Moles/Vol] 9 mmol/L Normal 8-15 [facility] Comment on above: Order Comment: Speci men Type: BLOOD SPECIMENOrdering Facility: [facility] Address: [address] [place] [address] Performed By: #### 2 432-8, , 2776-10 ####[facility] LABCLIA [id number] [place] [address] [place] AST [Catalytic activity/Vol] 82 U/L High 14-40 [facility] Comment on above: Order Comment: Speci men Type: BLOOD SPECIMENOrdering Facility: [facility] Address: [address] [place] [address] Performed By: #### 2 4323-8, , 2776-10 ####[facility] LABCLIA [id number] [place] [address] [place] Bilirubin [Mass/Vol] 0.3 mg/dL Normal 0.2-1.[address] [facility] Comment on above: Order Comment: Speci men Type: BLOOD SPECIMENOrdering Facility: [facility] Address: [address] [place] [address] Performed By: #### 2 4323-8, , 2776-10 ####[facility] LABCLIA [id number] [address] [address] [place] Calcium [Mass/Vol] 8.2 mg/dL Low 8.5-10.2 [facility] Comment on above: Order Comment: Speci men Type: BLOOD SPECIMENOrdering Facility: [facility] Address: [address] [place] [address] Performed By: #### 2 4323-8, , 2776-10 ####[facility] LABCLIA [id number] [place] [address] [place] Chloride [Moles/Vol] 101 mmol/L Normal 98-[address] [facility] Comment on above: Order Comment: Speci men Type: BLOOD SPECIMENOrdering Facility: [facility] Address: [address] [place] [address] Performed By: #### 2 4323-8, , 2776-10 ####[facility] LABCLIA [id number] [place] [address] [place] CO2 [Moles/Vol] 27 mmol/L Normal 22-30 [facility] Comment on above: Order Comment: Speci men Type: BLOOD SPECIMENOrdering Facility: [facility] Address: [address] [place] [address] Performed By: #### 2 4323-8, , 2776-10 ####[facility] LABCLIA [id number] [place] [address] [place] Creatinine [Mass/Vol] 0.98 mg/dL Normal 0.73-1.22 [facility] Comment on above: Order Comment: Speci men Type: BLOOD SPECIMENOrdering Facility: [facility] Address: [address] [place] [address] Performed By: #### 2 4323-8, , 2776-10 ####[facility] LABCLIA [id number] [place] [address] [place] Creatinine and Glomerular filtration rate.predicted panel (S/P/Bld) 92 mL/min/1.73m??? Normal >=60 [facility] Comment on above: Order Comment: Theo narvaez Type: BLOOD SPECIMENOrdering Facility: [facility] Address: [address] [place] [address] Result Comment: Marisa mated Glomerular Filtration Rate (eGFR) is calculated using the 2020 CKD-EPI creatinine equation. This equation utilizes serum creatinine, sex, and age as parameters. The creatinine assay has traceable calibration to isotope dilution-mass spectrometry. Refer to KDIGO guidelines for clinical interpretation. In patients with unstable renal function, e.g. those with acute kidney injury, the eGFR may not accurately reflect actual GFR. Performed By: #### 2 4323-8, , 2776- ####[facility] LABCLIA [id number] [place] [address] [place] Glucose [Mass/Vol] 172 mg/dL High 74-99 [facility] Comment on above: Order Comment: Theo narvaez Type: BLOOD SPECIMENOrdering Facility: [facility] Address: [address] [place] [address] Result Comment: The [place] Diabetes [employer] (ADA) provides guidance for cutoff values for fasting glucose and random glucose. The ADA defines fasting as no caloric intake for at least 8 hours. Fasting plasma glucose results between 100 to 125 mg/dL indicate increased risk for diabetes (prediabetes).Fasting plasma glucose results greater than or equal to 126 mg/dL meet the criteria for diagnosis of diabetes. In the absence of unequivocal hyperglycemia, results should be confirmed by repeat testing. In a patient with classic symptoms of hyperglycemia or hyperglycemic crisis, random plasma glucose results greater than or equal to 200 mg/dL meet the criteria for diagnosis of diabetes.Reference: Standards of Medical Care in Diabetes 2016, [place] [employer]. Diabetes Care. 2016.39(Suppl 1). Performed By: #### 2 4323-8, 93852-5, 2776- ####[facility] LABIA [id number] [place] [id number] [place] Potassium [Moles/Vol] 4.0 mmol/L Normal 3.7-5.1 [facility] Comment on above: Order Comment: Speci men Type: BLOOD SPECIMENOrdering Facility: [facility] Address: [address] [place], [place] [address] Performed By: #### 2 4323-8, , 2776-10 ####[facility] LABCLIA [id number] [place] [address] [place] Protein [Mass/Vol] 5.4 g/dL Low 6.3-8.0 [facility] Comment on above: Order Comment: Speci men Type: BLOOD SPECIMENOrdering Facility: [facility] Address: [address] [place] [address] Performed By: #### 2 4323-8, , 2776-10 ####[facility] LABCLIA [id number] [place] [address] [place] Sodium [Moles/Vol] 137 mmol/L Normal 136-144 [facility] Comment on above: Order Comment: Speci men Type: BLOOD SPECIMENOrdering Facility: [facility] Address: [address] [place] [address] Performed By: #### 2 4323-8, , 2776-10 ####[facility] LABCLIA [id number] [place] [address] [place] Urea nitrogen [Mass/Vol] 12 mg/dL Normal 9-24 [facility] Comment on above: Order Comment: Speci men Type: BLOOD SPECIMENOrdering Facility: [facility] Address: [address] [place], [place] [address] Performed By: #### 2 4323-8, , 2776-10 ####[facility] LABCLIA [id number] [address] [address] [place] Magnesium SerPl-mCncon 08-30 Magnesium [Mass/Vol] 2.1 mg/dL Normal 1.7-2.[address] [facility] Comment on above: Order Comment: Speccurly narvaez Type: BLOOD SPECIMENOrdering Facility: [facility] Address: [address] [place] [address] Performed By: #### 2 4323-8, 277-1, , 1988-02 ####[facility] LABCLIA [id number] [place] [address] [place] Magnesium [Mass/Vol] 1.9 mg/dL Normal 1.7-2.[address] [facility] Comment on above: Order Comment: Speccurly narvaez Type: BLOOD SPECIMENOrdering Facility: [facility] Address: [address] [place] [address] Performed By: #### 2 4323-8, , 2776-10 ####[facility] LABCLIA [id number] [place] [address] [place] PT panel Coag (PPP)on 2023 INR Coag (PPP) [Relative time] 1.1 {INR} Normal 0.9-1.3 [facility] Comment on above: Order Comment: Theo narvaez Type: BLOOD SPECIMENOrdering Facility: [facility] Address: [address] [place] [address] Result Comment: Carmita min K Antagonist (VKA) Therapeutic Range: INR 2 to 3 (Target INR of 2.5)Note: For patients treated with VKA drugs, such as warfarin, the [place] [employer] 2012 Guideline recommends a therapeutic INR range of 2 to 3 (target INR of 2.5). This recommendation includes high-risk patients with antiphospholipid syndrome with previous arterial or venous thromboembolism, current-generation mechanical or bioprosthetic aortic heart valve replacement.Note: Patients with mechanical aortic valve replacement and additional risk factors for thromboembolic events (atrial fibrillation, previous thromboembolism, LV dysfunction, hypercoagulable conditions) or an older generation mechanical AVR (i.e., ball in-Cage) or any mechanical MVR should have a INR therapeutic range of 2.5 to 3.5 (target INR of 3).Daren CASON, et al. Chest 2012, 141:7S-47SNishimshira ESTRADA, et al. [facility] 2017, 70: 252-289 Performed By: #### 3 4528-0, 28969-6 ####[facility] LABCLIA [id number] [place] [address] [place] PT Coag (PPP) [Time] 11.4 s Normal 9.7-13.[address] [facility] Comment on above: Order Comment: Speci men Type: BLOOD SPECIMENOrdering Facility: [facility] Address: [address] [place] [address] Performed By: #### 3 4528-0, 46657-0 ####[facility] LABCLIA [id number] [address] [place] INR Coag (PPP) [Relative time] 1.1 {INR} Normal 0.9-1.3 [facility] Comment on above: Order Comment: Speci men Type: BLOOD SPECIMENOrdering Facility: [facility] Address: [address] [place] [address] Result Comment: Carmita min K Antagonist (VKA) Therapeutic Range: INR 2 to 3 (Target INR of 2.5)Note: For patients treated with VKA drugs, such as warfarin, the [place] [employer] 2012 Guideline recommends a therapeutic INR range of 2 to 3 (target INR of 2.5). This recommendation includes high-risk patients with antiphospholipid syndrome with previous arterial or venous thromboembolism, current-generation mechanical or bioprosthetic aortic heart valve replacement.Note: Patients with mechanical aortic valve replacement and additional risk factors for thromboembolic events (atrial fibrillation, previous thromboembolism, LV dysfunction, hypercoagulable conditions) or an older generation mechanical AVR (i.e., ball in-Cage) or any mechanical MVR should have a INR therapeutic range of 2.5 to 3.5 (target INR of 3).grady Hines. Chest 2012, 141:7S-47SMargot ESTRADA, et al. [facility] 2017, 70: 252-289 Performed By: #### 3 4528-0, 19418-4 ####[facility] LABIA [id number] [address] [address] [place] PT Coag (PPP) [Time] 11.7 s Normal 9.7-13.[address] [facility] Comment on above: Order Comment: Speci men Type: BLOOD SPECIMENOrdering Facility: [facility] Address: [address] [place] [address] Performed By: #### 3 4528-0, 32943-0 ####[facility] LABIA [id number] [place] [address] [place] Phosphate SerPl-mCncon 08-30 Phosphate [Mass/Vol] 1.9 mg/dL Low 2.7-4.[address] [facility] Comment on above: Order Comment: Speci men Type: BLOOD SPECIMENOrdering Facility: [facility] Address: [address] [place] [address] Performed By: #### 2 4323-8, 2777-1, , 1988-02 ####[facility] [id number] [place] [address] [place] Phosphate [Mass/Vol] 1.9 mg/dL Low 2.7-4.[address] [facility] Comment on above: Order Comment: Speci men Type: BLOOD SPECIMENOrdering Facility: [facility] Address: [address] [place] [address] Result Comment: Resu lt rechecked. Performed By: #### 2 4323-8, 97421-1, 2776-10 ####[facility] LABIA [id number] [place] [address] [place] aPTT PPPon 08-30-2024 aPTT Coag (PPP) [Time] 27.9 s Normal 23.0-32.4 [facility] Comment on above: Order Comment: Speci men Type: BLOOD SPECIMENOrdering Facility: [facility] Address: [address] [place] [address] Performed By: #### 3 4528-0, 45828-2 ####[facility] LABCLIA [id number] [place] [address] [place] aPTT Coag (PPP) [Time] 31.4 s Normal 23.0-32.4 [facility] Comment on above: Order Comment: Speci men Type: BLOOD SPECIMENOrdering Facility: [facility] Address: [address] [place] [address] Performed By: #### 3 4528-0, 74995-7 ####[facility] LABCLIA [id number] [place] [address] [place] Basic metabolic 2000 panelon 08-29-2024 Anion gap [Moles/Vol] 13 mmol/L Normal 8-15 [facility] Comment on above: Order Comment: Speci men Type: BLOOD SPECIMENOrdering Facility: [facility] Address: [address] [place] [address] Performed By: #### 2 4325-3, 06936-4 ####[facility] LABCLIA [id number] [place] [address] [place] Calcium [Mass/Vol] 8.0 mg/dL Low 8.5-10.2 [facility] Comment on above: Order Comment: Speci men Type: BLOOD SPECIMENOrdering Facility: [facility] Address: [address] [place] [address] Performed By: #### 2 4325-3, 23033-8 ####[facility] LABCLIA [id number] [place] [address] [place] Chloride [Moles/Vol] 103 mmol/L Normal 98-[address] [facility] Comment on above: Order Comment: Speci men Type: BLOOD SPECIMENOrdering Facility: [facility] Address: [address] [place] [address] Performed By: #### 2 4325-3, 02217-9 ####[facility] LABCLIA [id number] [place] [address] [place] CO2 [Moles/Vol] 22 mmol/L Normal 22-30 [facility] Comment on above: Order Comment: Speci men Type: BLOOD SPECIMENOrdering Facility: [facility] Address: [address] [place] [address] Performed By: #### 2 4325-3, 99618-3 ####[facility] LABIA [id number] [place] [address] [place] Creatinine [Mass/Vol] 0.93 mg/dL Normal 0.73-1.22 [facility] Comment on above: Order Comment: Yasmini men Type: BLOOD SPECIMENOrdering Facility: [facility] Address: [address] [place] [address] Performed By: #### 2 4325-3, 83829-0 ####[facility] [id number] [place] [address] [place] Creatinine and Glomerular filtration rate.predicted panel (S/P/Bld) 98 mL/min/1.73m??? Normal >=60 [facility] Comment on above: Order Comment: Theo narvaez Type: BLOOD SPECIMENOrdering Facility: [facility] Address: [address] [place] [address] Result Comment: Marisa mated Glomerular Filtration Rate (eGFR) is calculated using the 2020 CKD-EPI creatinine equation. This equation utilizes serum creatinine, sex, and age as parameters. The creatinine assay has traceable calibration to isotope dilution-mass spectrometry. Refer to KDIGO guidelines for clinical interpretation. In patients with unstable renal function, e.g. those with acute kidney injury, the eGFR may not accurately reflect actual GFR. Performed By: #### 2 4325-3, 37183-0 ####[facility] LABCLIA [id number] [place] [address] [place] Glucose [Mass/Vol] 206 mg/dL High 74-99 [facility] Comment on above: Order Comment: Speci men Type: BLOOD SPECIMENOrdering Facility: [facility] Address: [address] [place] [address] Result Comment: The [place] [employer] (ADA) provides guidance for cutoff values for fasting glucose and random glucose. The ADA defines fasting as no caloric intake for at least 8 hours. Fasting plasma glucose results between 100 to 125 mg/dL indicate increased risk for diabetes (prediabetes).Fasting plasma glucose results greater than or equal to 126 mg/dL meet the criteria for diagnosis of diabetes. In the absence of unequivocal hyperglycemia, results should be confirmed by repeat testing. In a patient with classic symptoms of hyperglycemia or hyperglycemic crisis, random plasma glucose results greater than or equal to 200 mg/dL meet the criteria for diagnosis of diabetes.Reference: Standards of Medical Care in Diabetes 2016, [place] [employer]. Diabetes Care. 2016.39(Suppl 1). Performed By: #### 2 4325-3, 97309-0 ####[facility] LABCLIA [id number] [place] [address] [place] Potassium [Moles/Vol] Normal [facility] Comment on above: Order Comment: Theo narvaez Type: BLOOD SPECIMENOrdering Facility: [facility] Address: [address] [place] [address] Result Comment: Unab le to assay due to interference from hemolysis. Suggest reorder as clinically indicated. Performed By: #### 2 4325-3, 77935-0 ####[facility] LABCLIA [id number] [place] [address] [place] Sodium [Moles/Vol] 138 mmol/L Normal 136-144 [facility] Comment on above: Order Comment: Theo brice Type: BLOOD SPECIMENOrdering Facility: [facility] Address: [address] [place] [place] [id number] Performed By: #### 2 4325-3, 02444-0 ####[facility] LABCLIA [id number] [place] [address] [place] Urea nitrogen [Mass/Vol] 14 mg/dL Normal 9-24 [facility] Comment on above: Order Comment: Speci men Type: BLOOD SPECIMENOrdering Facility: [facility] Address: [address] [place] [address] Performed By: #### 2 4325-3, 67907-4 ####[facility] LABCLIA [id number] [place] [address] [place] CASE MGT INIT ASSESon 2023 CASE MGT INIT ASSES Normal [facility] CBC W Auto Differential pane l (Bld)on 08-29-2024 Basophils (Bld) [#/Vol] 10*3/uL Normal <0.11 [facility] Comment on above: Order Comment: Speci men Type: BLOOD SPECIMENOrdering Facility: [facility] Address: [address] [place] [address] Performed By: #### 5 7021-8 ####[facility] LABCLIA [id number] [place] [address] [place] Basophils/100 WBC (Bld) 0.1 % Normal [facility] Comment on above: Order Comment: Speci men Type: BLOOD SPECIMENOrdering Facility: [facility] Address: [address] [place] [address] Performed By: #### 5 7021-8 ####[facility] LABCLIA [id number] [place] [address] [place] Differential cell count method Nom (Bld) Auto Normal [facility] Comment on above: Order Comment: Speci men Type: BLOOD SPECIMENOrdering Facility: [facility] Address: [address] [place] [address] Performed By: #### 5 7021-8 ####[facility] LABCLIA [id number] [place] [address] [place] Eosinophils (Bld) [#/Vol] 10*3/uL Normal <0.46 [facility] Comment on above: Order Comment: Speci men Type: BLOOD SPECIMENOrdering Facility: [facility] Address: [address] [place] [address] Performed By: #### 5 7021-8 ####[facility] LABCLIA [id number] [place] [address] [place] Eosinophils/100 WBC (Bld) 0.0 % Normal [facility] Comment on above: Order Comment: Speci men Type: BLOOD SPECIMENOrdering Facility: [facility] Address: [address] [place] [address] Performed By: #### 5 7021-8 ####[facility] LABCLIA [id number] [place] [address] [place] Erythrocyte distribution width (RBC) [Ratio] 12.8 % Normal 11.5-15.0 [facility] Comment on above: Order Comment: Speci men Type: BLOOD SPECIMENOrdering Facility: [facility] Address: [address] [place] [address] Performed By: #### 5 7021-8 ####[facility] LABIA [id number] [place] [address] [place] Hematocrit (Bld) [Volume fraction] 26.7 % Low 39.0-51.0 [facility] Comment on above: Order Comment: Speci men Type: BLOOD SPECIMENOrdering Facility: [facility] Address: [address] [place] [address] Performed By: #### 5 7021-8 ####[facility] LABCLIA [id number] [place] [address] [place] Hemoglobin (Bld) [Mass/Vol] 9.0 g/dL Low 13.0-17.0 [facility] Comment on above: Order Comment: Speci men Type: BLOOD SPECIMENOrdering Facility: [facility] Address: [address] [place] [address] Performed By: #### 5 7021-8 ####[facility] LABCLIA [id number] [place] [address] [place] Immature granulocytes (Bld) [#/Vol] 0.09 10*3/uL Normal <0.10 [facility] Comment on above: Order Comment: Speci men Type: BLOOD SPECIMENOrdering Facility: [facility] Address: [address] [place] [address] Performed By: #### 5 7021-8 ####[facility] LABCLIA [id number] [place] [address] [place] Immature granulocytes/100 WBC (Bld) 0.6 % Normal [facility] Comment on above: Order Comment: Speci men Type: BLOOD SPECIMENOrdering Facility: [facility] Address: [address] [place] [address] Performed By: #### 5 7021-8 ####[facility] LABCLIA [id number] [place] [address] [place] Lymphocytes (Bld) [#/Vol] 0.83 10*3/uL Low 1.00-4.00 [facility] Comment on above: Order Comment: Speci men Type: BLOOD SPECIMENOrdering Facility: [facility] Address: [address] [place] [address] Performed By: #### 5 7021-8 ####[facility] LABCLIA [id number] [place] [address] [place] Lymphocytes/100 WBC (Bld) 5.7 % Normal [facility] Comment on above: Order Comment: Speci men Type: BLOOD SPECIMENOrdering Facility: [facility] Address: [address] [place] [address] Performed By: #### 5 7021-8 ####[facility] LABCLIA [id number] [place] [address] [place] MCH (RBC) [Entitic mass] 29.7 pg Normal 26.0-34.0 [facility] Comment on above: Order Comment: Speci men Type: BLOOD SPECIMENOrdering Facility: [facility] Address: [address] [place] [address] Performed By: #### 5 7021-8 ####[facility] LABCLIA [id number] [place] [address] [place] MCHC (RBC) [Mass/Vol] 33.7 g/dL Normal 30.5-36.0 [facility] Comment on above: Order Comment: Speci men Type: BLOOD SPECIMENOrdering Facility: [facility] Address: [address] [place] [address] Performed By: #### 5 7021-8 ####[facility] LABCLIA [id number] [place] [address] [place] MCV (RBC) [Entitic vol] 88.1 fL Normal 80.0-100.0 [facility] Comment on above: Order Comment: Speci men Type: BLOOD SPECIMENOrdering Facility: [facility] Address: [address] [place] [address] Performed By: #### 5 7021-8 ####[facility] LABCLIA [id number] [place] [address] [place] Monocytes (Bld) [#/Vol] 1.13 10*3/uL High <0.87 [facility] Comment on above: Order Comment: Speci men Type: BLOOD SPECIMENOrdering Facility: [facility] Address: [address] [place] [address] Performed By: #### 5 7021-8 ####[facility] LABCLIA [id number] [place] [address] [place] Monocytes/100 WBC (Bld) 7.7 % Normal [facility] Comment on above: Order Comment: Speci men Type: BLOOD SPECIMENOrdering Facility: [facility] Address: [address] [place] [address] Performed By: #### 5 7021-8 ####[facility] LABCLIA [id number] [place] [address] [place] Neutrophils (Bld) [#/Vol] 12.57 10*3/uL High 1.45-7.50 [facility] Comment on above: Order Comment: Speci men Type: BLOOD SPECIMENOrdering Facility: [facility] Address: [address] [place] [address] Performed By: #### 5 7021-8 ####[facility] LABCLIA [id number] [place] [address] [place] Neutrophils/100 WBC (Bld) 85.9 % Normal [facility] Comment on above: Order Comment: Speci men Type: BLOOD SPECIMENOrdering Facility: [facility] Address: [address] [place] [address] Performed By: #### 5 7021-8 ####[facility] LABCLIA [id number] [place] [address] [place] Nucleated RBC (Bld) [#/Vol] 10*3/uL Normal <0.01 [facility] Comment on above: Order Comment: Speci men Type: BLOOD SPECIMENOrdering Facility: [facility] Address: [address] [place] [address] Performed By: #### 5 7021-8 ####[facility] LABCLIA [id number] [place] [address] [place] Nucleated RBC/100 WBC (Bld) [Ratio] 0.0 /100 WBC Normal [facility] Comment on above: Order Comment: Speci men Type: BLOOD SPECIMENOrdering Facility: [facility] Address: [address] [place] [address] Performed By: #### 5 7021-8 ####[facility] LABCLIA [id number] [place] [address] [place] Platelet mean volume (Bld) [Entitic vol] 9.9 fL Normal 9.0-12.7 [facility] Comment on above: Order Comment: Speci men Type: BLOOD SPECIMENOrdering Facility: [facility] Address: [address] [place] [address] Performed By: #### 5 7021-8 ####[facility] LABCLIA [id number] [place] [address] [place] Platelets (Bld) [#/Vol] 209 10*3/uL Normal 150-400 [facility] Comment on above: Order Comment: Speci men Type: BLOOD SPECIMENOrdering Facility: [facility] Address: [address] [place] [address] Performed By: #### 5 7021-8 ####[facility] LABCLIA [id number] [place] [address] [place] RBC (Bld) [#/Vol] 3.03 10*6/uL Low 4.20-6.[address] [facility] Comment on above: Order Comment: Speci men Type: BLOOD SPECIMENOrdering Facility: [facility] Address: [address] [place] [address] Performed By: #### 5 7021-8 ####[facility] LABCLIA [id number] [place] [address] [place] WBC (Bld) [#/Vol] 14.63 10*3/uL High 3.70-11.[address] [facility] Comment on above: Order Comment: Speci men Type: BLOOD SPECIMENOrdering Facility: [facility] Address: [address] [place] [address] Performed By: #### 5 7021-8 ####[facility] LABCLIA [id number] [place] [address] [place] CONSULTon 08-29-2024 CONSULT Normal [facility] Hepatic function 2000 panelo n 08-29-2024 Albumin [Mass/Vol] 3.7 g/dL Low 3.9-4.9 [facility] Comment on above: Order Comment: Speci men Type: BLOOD SPECIMENOrdering Facility: [facility] Address: [address] [place] [address] Performed By: #### 2 4325-3, 19521-9 ####[facility] LABCLIA [id number] [place] [address] [place] ALP [Catalytic activity/Vol] 55 U/L Normal 38-113 [facility] Comment on above: Order Comment: Speci men Type: BLOOD SPECIMENOrdering Facility: [facility] Address: [address] [place] [address] Performed By: #### 2 4325-3, 56191-1 ####[facility] LABIA [id number] [place] [address] [place] ALT [Catalytic activity/Vol] 113 U/L High 10-54 [facility] Comment on above: Order Comment: Speci men Type: BLOOD SPECIMENOrdering Facility: [facility] Address: [address] [place] [address] Result Comment: Resu lts may be falsely increased due to interference from hemolysis. Suggest reorder as clinically indicated. Performed By: #### 2 4325-3, 99089-6 ####[facility] LABCLIA [id number] [place] [address] [place] AST [Catalytic activity/Vol] 121 U/L High 14-40 [facility] Comment on above: Order Comment: Speci men Type: BLOOD SPECIMENOrdering Facility: [facility] Address: [address] [place] [address] Result Comment: Resu lts may be falsely increased due to interference from hemolysis. Suggest reorder as clinically indicated. Performed By: #### 2 4325-3, 18121-6 ####[facility] LABCLIA [id number] [place] [address] [place] Bilirubin [Mass/Vol] 0.6 mg/dL Normal 0.2-1.[address] [facility] Comment on above: Order Comment: Speci men Type: BLOOD SPECIMENOrdering Facility: [facility] Address: [address] [place] [address] Performed By: #### 2 4325-3, 70051-5 ####[facility] LABCLIA [id number] [place] [address] [place] Bilirubin.conjugated [Mass/Vol] mg/dL Normal <0.2 [facility] Comment on above: Order Comment: Speci men Type: BLOOD SPECIMENOrdering Facility: [facility] Address: [address] [place] [address] Result Comment: Resu lts may be falsely decreased due to interference from hemolysis. Suggest reorder as clinically indicated. Performed By: #### 2 4325-3, 67284-1 ####[facility] LABIA [id number] [place] [address] [place] Protein [Mass/Vol] 5.3 g/dL Low 6.3-8.0 [facility] Comment on above: Order Comment: Speci men Type: BLOOD SPECIMENOrdering Facility: [facility] Address: [address] [place] [address] Performed By: #### 2 4325-3, 28695-8 ####[facility] LABCLIA [id number] [place] [address] [place] Lactate (Bld) [Moles/Vol]on 08-29-2024 Lactate [Moles/Vol] 1.8 mmol/L Normal 0.5-2.[address] [facility] Comment on above: Order Comment: Speci men Type: BLOOD SPECIMENOrdering Facility: [facility] Address: [address] [place] [address] Performed By: #### 3 2693-4 ####[facility] LABIA [id number] [place] [id number] [place] NUTRITIONon 08-29-2024 NUTRITION Normal [facility] THERAPY NTon 08-29-2024 THERAPY NT Normal [facility] THERAPY NT Normal [facility] ANES POSTPROC EVALon 024 ANES POSTPROC EVAL Normal [facility] ANES PRE-OPon 08-28-2024 ANES PRE-OP Normal [facility] ARTERIAL BLOOD GASESon 08-28 Base excess Calc (Bld) [Moles/Vol] 0 mmol/L Normal 0-2 [facility] Comment on above: Order Comment: Speci men Type: ARTERIAL BLOOD SPECIMENOrdering Facility: [facility] Address: [address] [place] [address] Performed By: #### A LLBG ####[facility] [id number] [place] [address] [place] Calcium.ionized (Bld) [Mass/Vol] 1.14 mmol/L Normal 1.08-1.30 [facility] Comment on above: Order Comment: Speci men Type: ARTERIAL BLOOD SPECIMENOrdering Facility: [facility] Address: [address] [place] [address] Performed By: #### A LLBG ####[facility] [id number] [place] [address] [place] Calcium.ionized adjusted to pH 7.4 (BldA) [Moles/Vol] 1.12 mmol/L Normal 1.08-1.30 [facility] Comment on above: Order Comment: Speci men Type: ARTERIAL BLOOD SPECIMENOrdering Facility: [facility] Address: [address] [place] [address] Performed By: #### A LLBG ####[facility] [id number] [place] [address] [place] Carboxyhemoglobin (BldA) [Mass fraction] 1.3 % Normal 0.0-2.0 [facility] Comment on above: Order Comment: Speci men Type: ARTERIAL BLOOD SPECIMENOrdering Facility: [facility] Address: [address] [place] [address] Result Comment: Carb oxyhemoglobin Reference Range for Smokers: 2.0-8.0% Performed By: #### A LLBG ####[facility] LABCLIA [id number] [place] [address] [place] CO2 (Bld) [Partial pressure] 44 mm Hg Normal 36-46 [facility] Comment on above: Order Comment: Speci men Type: ARTERIAL BLOOD SPECIMENOrdering Facility: [facility] Address: [address] [place] [address] Performed By: #### A LLBG ####[facility] LABCLIA [id number] [address] [place] CO2 adjusted to patient's actual temperature (Bld) [Partial pressure] 44 mmHg Normal 36-46 [facility] Comment on above: Order Comment: Speci men Type: ARTERIAL BLOOD SPECIMENOrdering Facility: [facility] Address: [address] [place] [address] Performed By: #### A LLBG ####[facility] LABCLIA [id number] [place] [address] [place] Glucose [Mass/Vol] 171 mg/dL High 60-105 [facility] Comment on above: Order Comment: Speci men Type: ARTERIAL BLOOD SPECIMENOrdering Facility: [facility] Address: [address] [place] [address] Performed By: #### A LLBG ####[facility] LABCLIA [id number] [place] [address] [place] HCO3 (Bld) [Moles/Vol] 25 mmol/L Normal 22-26 [facility] Comment on above: Order Comment: Speci men Type: ARTERIAL BLOOD SPECIMENOrdering Facility: [facility] Address: [address] [place] [address] Performed By: #### A LLBG ####[facility] LABCLIA [id number] [place] [address] [place] Hematocrit (Bld) [Volume fraction] 26.6 % Low 39.0-51.0 [facility] Comment on above: Order Comment: Speci men Type: ARTERIAL BLOOD SPECIMENOrdering Facility: [facility] Address: [address] [place] [address] Performed By: #### A LLBG ####[facility] LABIA [id number] [place] [address] [place] Hemoglobin (Bld) [Mass/Vol] 8.6 g/dL Low 13.0-17.0 [facility] Comment on above: Order Comment: Speci men Type: ARTERIAL BLOOD SPECIMENOrdering Facility: [facility] Address: [address] [place] [address] Performed By: #### A LLBG ####[facility] LABIA [id number] [place] [address] [place] Lactate [Moles/Vol] 3.3 mmol/L High 0.5-2.[address] [facility] Comment on above: Order Comment: Speci men Type: ARTERIAL BLOOD SPECIMENOrdering Facility: [facility] Address: [address] [place] [address] Performed By: #### A LLBG ####[facility] LABIA [id number] [place] [address] [place] Methemoglobin (Bld) [Mass fraction] 0.7 % Normal 0.0-1.5 [facility] Comment on above: Order Comment: Speci men Type: ARTERIAL BLOOD SPECIMENOrdering Facility: [facility] Address: [address] [place] [address] Performed By: #### A LLBG ####[facility] LABCLIA [id number] [place] [address] [place] Oxygen (Bld) [Partial pressure] 201 mm Hg High 85-95 [facility] Comment on above: Order Comment: Speci men Type: ARTERIAL BLOOD SPECIMENOrdering Facility: [facility] Address: [address] [place] [address] Performed By: #### A LLBG ####[facility] LABCLIA [id number] [place] [address] [place] Oxygen adjusted to patient's actual temperature (Bld) [Partial pressure] 201 mmHg High 85-95 [facility] Comment on above: Order Comment: Speci men Type: ARTERIAL BLOOD SPECIMENOrdering Facility: [facility] Address: [address] [place] [address] Performed By: #### A LLBG ####[facility] LABCLIA [id number] [place] [address] [place] Oxyhemoglobin (BldA) [Mass fraction] 98 % Normal 95-98 [facility] Comment on above: Order Comment: Speci men Type: ARTERIAL BLOOD SPECIMENOrdering Facility: [facility] Address: [address] [place] [address] Performed By: #### A LLBG ####[facility] LABCLIA [id number] [place] [address] [place] pH (Bld) 7.36 [pH] Normal 7.35-7.45 [facility] Comment on above: Order Comment: Speci men Type: ARTERIAL BLOOD SPECIMENOrdering Facility: [facility] Address: [address] [place] [address] Performed By: #### A LLBG ####[facility] LABCLIA [id number] [place] [address] [place] pH adjusted to patient's actual temperature (Bld) 7.36 Normal 7.35-7.45 [facility] Comment on above: Order Comment: Speci men Type: ARTERIAL BLOOD SPECIMENOrdering Facility: [facility] Address: [address] [place] [address] Performed By: #### A LLBG ####[facility] LABCLIA [id number] [place] [address] [place] Potassium [Moles/Vol] 3.6 mmol/L Normal 3.5-5.0 [facility] Comment on above: Order Comment: Speci men Type: ARTERIAL BLOOD SPECIMENOrdering Facility: [facility] Address: [address] [place] [address] Performed By: #### A LLBG ####[facility] LABCLIA [id number] [place] [address] [place] Sodium [Moles/Vol] 138 mmol/L Normal 136-144 [facility] Comment on above: Order Comment: Speci men Type: ARTERIAL BLOOD SPECIMENOrdering Facility: [facility] Address: [address] [place] [address] Performed By: #### A LLBG ####[facility] LABCLIA [id number] [place] [address] [place] ARTERIAL BLOOD GASES WITH IO NIZED MAGNESIUMon 08-28-2024 Base excess Calc (Bld) [Moles/Vol] 1 mmol/L Normal 0-2 [facility] Comment on above: Order Comment: Speci men Type: ARTERIAL BLOOD SPECIMENOrdering Facility: [facility] Address: [address] [place] [address] Performed By: #### A LLMG ####[facility] LABCLIA [id number] [place] [address] [place] Calcium.ionized (Bld) [Mass/Vol] 1.16 mmol/L Normal 1.08-1.30 [facility] Comment on above: Order Comment: Speci men Type: ARTERIAL BLOOD SPECIMENOrdering Facility: [facility] Address: [address] [place] [address] Performed By: #### A LLMG ####[facility] LABCLIA [id number] [place] [address] [place] Calcium.ionized adjusted to pH 7.4 (BldA) [Moles/Vol] 1.15 mmol/L Normal 1.08-1.30 [facility] Comment on above: Order Comment: Speci men Type: ARTERIAL BLOOD SPECIMENOrdering Facility: [facility] Address: [address] [place] [address] Performed By: #### A LLMG ####[facility] LABCLIA [id number] [address] [address] [place] Carboxyhemoglobin (BldA) [Mass fraction] 1.5 % Normal 0.0-2.0 [facility] Comment on above: Order Comment: Speci men Type: ARTERIAL BLOOD SPECIMENOrdering Facility: [facility] Address: [address] [place] [address] Result Comment: Carb oxyhemoglobin Reference Range for Smokers: 2.0-8.0% Performed By: #### A LLMG ####[facility] LABCLIA [id number] [place] [address] [place] CO2 (Bld) [Partial pressure] 42 mm Hg Normal 36-46 [facility] Comment on above: Order Comment: Speci men Type: ARTERIAL BLOOD SPECIMENOrdering Facility: [facility] Address: [address] [place] [address] Performed By: #### A LLMG ####[facility] LABCLIA [id number] [place] [address] [place] CO2 adjusted to patient's actual temperature (Bld) [Partial pressure] 42 mmHg Normal 36-46 [facility] Comment on above: Order Comment: Speci men Type: ARTERIAL BLOOD SPECIMENOrdering Facility: [facility] Address: [address] [place] [address] Performed By: #### A LLMG ####[facility] LABIA [id number] [place] [address] [place] Glucose [Mass/Vol] 220 mg/dL High 60-105 [facility] Comment on above: Order Comment: Speci men Type: ARTERIAL BLOOD SPECIMENOrdering Facility: [facility] Address: [address] [place] [address] Performed By: #### A LLMG ####[facility] LABCLIA [id number] [place] [address] [place] HCO3 (Bld) [Moles/Vol] 25 mmol/L Normal 22-26 [facility] Comment on above: Order Comment: Speci men Type: ARTERIAL BLOOD SPECIMENOrdering Facility: [facility] Address: [address] [place] [address] Performed By: #### A LLMG ####[facility] LABCLIA [id number] [place] [address] [place] Hematocrit (Bld) [Volume fraction] 32.3 % Low 39.0-51.0 [facility] Comment on above: Order Comment: Speci men Type: ARTERIAL BLOOD SPECIMENOrdering Facility: [facility] Address: [address] [place] [address] Performed By: #### A LLMG ####[facility] LABCLIA [id number] [place] [address] [place] Hemoglobin (Bld) [Mass/Vol] 10.4 g/dL Low 13.0-17.0 [facility] Comment on above: Order Comment: Speci men Type: ARTERIAL BLOOD SPECIMENOrdering Facility: [facility] Address: [address] [place] [address] Performed By: #### A LLMG ####[facility] LABCLIA [id number] [place] [address] [place] Lactate [Moles/Vol] 2.0 mmol/L Normal 0.5-2.[address] [facility] Comment on above: Order Comment: Speci men Type: ARTERIAL BLOOD SPECIMENOrdering Facility: [facility] Address: [address] [place] [address] Performed By: #### A LLMG ####[facility] LABCLIA [id number] [id number] [address] [place] Magnesium [Moles/Vol] 0.40 mmol/L Low 0.45-0.60 [facility] Comment on above: Order Comment: Speci men Type: ARTERIAL BLOOD SPECIMENOrdering Facility: [facility] Address: [address] [place] [address] Performed By: #### A LLMG ####[facility] LABCLIA [id number] [place] [address] [place] Methemoglobin (Bld) [Mass fraction] 0.5 % Normal 0.0-1.5 [facility] Comment on above: Order Comment: Speci men Type: ARTERIAL BLOOD SPECIMENOrdering Facility: [facility] Address: [address] [place] [address] Performed By: #### A LLMG ####[facility] LABCLIA [id number] [place] [address] [place] Oxygen (Bld) [Partial pressure] 179 mm Hg High 85-95 [facility] Comment on above: Order Comment: Speci men Type: ARTERIAL BLOOD SPECIMENOrdering Facility: [facility] Address: [address] [place] [address] Performed By: #### A LLMG ####[facility] LABCLIA [id number] [place] [address] [place] Oxygen adjusted to patient's actual temperature (Bld) [Partial pressure] 179 mmHg High 85-95 [facility] Comment on above: Order Comment: Speci men Type: ARTERIAL BLOOD SPECIMENOrdering Facility: [facility] Address: [address] [place] [address] Performed By: #### A LLMG ####[facility] LABCLIA [id number] [place] [address] [place] Oxyhemoglobin (BldA) [Mass fraction] 98 % Normal 95-98 [facility] Comment on above: Order Comment: Speci men Type: ARTERIAL BLOOD SPECIMENOrdering Facility: [facility] Address: [address] [place] [address] Performed By: #### A LLMG ####[facility] LABCLIA [id number] [place] [address] [place] pH (Bld) 7.40 [pH] Normal 7.35-7.45 [facility] Comment on above: Order Comment: Speci men Type: ARTERIAL BLOOD SPECIMENOrdering Facility: [facility] Address: [address] [place] [address] Performed By: #### A LLMG ####[facility] LABCLIA [id number] [place] [address] [place] pH adjusted to patient's actual temperature (Bld) 7.40 Normal 7.35-7.45 [facility] Comment on above: Order Comment: Speci men Type: ARTERIAL BLOOD SPECIMENOrdering Facility: [facility] Address: [address] [place] [address] Performed By: #### A LLMG ####[facility] LABCLIA [id number] [place] [address] [place] Potassium [Moles/Vol] 4.1 mmol/L Normal 3.5-5.0 [facility] Comment on above: Order Comment: Speci men Type: ARTERIAL BLOOD SPECIMENOrdering Facility: [facility] Address: [address] [place] [address] Performed By: #### A LLMG ####[facility] LABCLIA [id number] [place] [address] [place] Sodium [Moles/Vol] 137 mmol/L Normal 136-144 [facility] Comment on above: Order Comment: Speci men Type: ARTERIAL BLOOD SPECIMENOrdering Facility: [facility] Address: [address] [place] [address] Performed By: #### A LLMG ####[facility] LABCLIA [id number] [place] [address] [place] Base excess Calc (Bld) [Moles/Vol] 2 mmol/L Normal 0-2 [facility] Comment on above: Order Comment: Speci men Type: ARTERIAL BLOOD SPECIMENOrdering Facility: [facility] Address: [address] [place] [address] Performed By: #### A LLMG ####[facility] LABCLIA [id number] [place] [address] [place] Calcium.ionized (Bld) [Mass/Vol] 1.21 mmol/L Normal 1.08-1.30 [facility] Comment on above: Order Comment: Speci men Type: ARTERIAL BLOOD SPECIMENOrdering Facility: [facility] Address: [address] [place] [address] Performed By: #### A LLMG ####[facility] LABCLIA [id number] [place] [address] [place] Calcium.ionized adjusted to pH 7.4 (BldA) [Moles/Vol] 1.22 mmol/L Normal 1.08-1.30 [facility] Comment on above: Order Comment: Speci men Type: ARTERIAL BLOOD SPECIMENOrdering Facility: [facility] Address: [address] [place] [address] Performed By: #### A LLMG ####[facility] LABCLIA [id number] [place] [address] [place] Carboxyhemoglobin (BldA) [Mass fraction] 1.5 % Normal 0.0-2.0 [facility] Comment on above: Order Comment: Speci men Type: ARTERIAL BLOOD SPECIMENOrdering Facility: [facility] Address: [address] [place] [address] Result Comment: Carb oxyhemoglobin Reference Range for Smokers: 2.0-8.0% Performed By: #### A LLMG ####[facility] LABCLIA [id number] [place] [address] [place] CO2 (Bld) [Partial pressure] 40 mm Hg Normal 36-46 [facility] Comment on above: Order Comment: Speci men Type: ARTERIAL BLOOD SPECIMENOrdering Facility: [facility] Address: [address] [place] [address] Performed By: #### A LLMG ####[facility] LABCLIA [id number] [place] [address] [place] CO2 adjusted to patient's actual temperature (Bld) [Partial pressure] 40 mmHg Normal 36-46 [facility] Comment on above: Order Comment: Speci men Type: ARTERIAL BLOOD SPECIMENOrdering Facility: [facility] Address: [address] [place] [address] Performed By: #### A LLMG ####[facility] LABCLIA [id number] [place] [address] [place] Glucose [Mass/Vol] 142 mg/dL High 60-105 [facility] Comment on above: Order Comment: Speci men Type: ARTERIAL BLOOD SPECIMENOrdering Facility: [facility] Address: [address] [place] [address] Performed By: #### A LLMG ####[facility] LABCLIA [id number] [place] [address] [place] HCO3 (Bld) [Moles/Vol] 26 mmol/L Normal 22-26 [facility] Comment on above: Order Comment: Speci men Type: ARTERIAL BLOOD SPECIMENOrdering Facility: [facility] Address: [address] [place] [address] Performed By: #### A LLMG ####[facility] LABCLIA [id number] [place] [address] [place] Hematocrit (Bld) [Volume fraction] 37.7 % Low 39.0-51.0 [facility] Comment on above: Order Comment: Speci men Type: ARTERIAL BLOOD SPECIMENOrdering Facility: [facility] Address: [address] [place] [address] Performed By: #### A LLMG ####[facility] LABIA [id number] [place] [address] [place] Hemoglobin (Bld) [Mass/Vol] 12.3 g/dL Low 13.0-17.0 [facility] Comment on above: Order Comment: Speci men Type: ARTERIAL BLOOD SPECIMENOrdering Facility: [facility] Address: [address] [place] [address] Performed By: #### A LLMG ####[facility] LABIA [id number] [place] [address] [place] Lactate [Moles/Vol] 1.8 mmol/L Normal 0.5-2.[address] [facility] Comment on above: Order Comment: Speci men Type: ARTERIAL BLOOD SPECIMENOrdering Facility: [facility] Address: [address] [place] [address] Performed By: #### A LLMG ####[facility] [id number] [place] [address] [place] Magnesium [Moles/Vol] 0.52 mmol/L Normal 0.45-0.60 [facility] Comment on above: Order Comment: Speci men Type: ARTERIAL BLOOD SPECIMENOrdering Facility: [facility] Address: [address] [place] [address] Performed By: #### A LLMG ####[facility] [id number] [place] [address] [place] Methemoglobin (Bld) [Mass fraction] 0.8 % Normal 0.0-1.5 [facility] Comment on above: Order Comment: Speci men Type: ARTERIAL BLOOD SPECIMENOrdering Facility: [facility] Address: [address] [place] [address] Performed By: #### A LLMG ####[facility] LABS[facility] [id number] [place] [address] [place] Oxygen (Bld) [Partial pressure] 116 mm Hg High 85-95 [facility] Comment on above: Order Comment: Speci men Type: ARTERIAL BLOOD SPECIMENOrdering Facility: [facility] Address: [address] [place] [address] Performed By: #### A LLMG ####[facility] LABCLIA [id number] [address] [address] [place] Oxygen adjusted to patient's actual temperature (Bld) [Partial pressure] 116 mmHg High 85-95 [facility] Comment on above: Order Comment: Speci men Type: ARTERIAL BLOOD SPECIMENOrdering Facility: [facility] Address: [address] [place] [address] Performed By: #### A LLMG ####[facility] LABCLIA [id number] [place] [address] [place] Oxyhemoglobin (BldA) [Mass fraction] 97 % Normal 95-98 [facility] Comment on above: Order Comment: Speci men Type: ARTERIAL BLOOD SPECIMENOrdering Facility: [facility] Address: [address] [place] [address] Performed By: #### A LLMG ####[facility] LABCLIA [id number] [place] [address] [place] pH (Bld) 7.43 [pH] Normal 7.35-7.45 [facility] Comment on above: Order Comment: Speci men Type: ARTERIAL BLOOD SPECIMENOrdering Facility: [facility] Address: [address] [place] [address] Performed By: #### A LLMG ####[facility] LABCLIA [id number] [place] [address] [place] pH adjusted to patient's actual temperature (Bld) 7.43 Normal 7.35-7.45 [facility] Comment on above: Order Comment: Speci men Type: ARTERIAL BLOOD SPECIMENOrdering Facility: [facility] Address: [address] [place] [address] Performed By: #### A LLMG ####[facility] LABCLIA [id number] [place] [address] [place] Potassium [Moles/Vol] 4.1 mmol/L Normal 3.5-5.0 [facility] Comment on above: Order Comment: Speci men Type: ARTERIAL BLOOD SPECIMENOrdering Facility: [facility] Address: [address] [place] [address] Performed By: #### A LLMG ####[facility] LABCLIA [id number] [place] [address] [place] Sodium [Moles/Vol] 137 mmol/L Normal 136-144 [facility] Comment on above: Order Comment: Speci men Type: ARTERIAL BLOOD SPECIMENOrdering Facility: [facility] Address: [address] [place] [address] Performed By: #### A LLMG ####[facility] LABCLIA [id number] [place] [address] [place] BRIEF OP NOTon 08-28-2024 BRIEF OP NOT Normal [facility] Bacteria Spec Anaerobe Culto n 08-28-2024 Bacteria identified Anaer cx Nom (Unsp spec) Negative Normal [facility] Comment on above: Performed By: #### 6 35-3, 6462-6, 41347-1 ####[facility] LABCLIA [id number] [place] [address] [place] Bacteria Wnd Culton 08-28-20 24 Bacteria identified Cx Nom (Wound) CULTURE, WOUND: No growth GRAM STAIN: No organisms seen No Polymorphonuclear Leukocytes Normal [facility] Comment on above: Performed By: #### 6 35-3, 6462-6, 59844-3 ####[facility] LABCLIA [id number] [place] [address] [place] CBC W Auto Differential pane l (Bld)on 08-28-2024 Basophils (Bld) [#/Vol] 0.00 10*3/uL Normal <0.11 [facility] Comment on above: Order Comment: Speci men Type: BLOOD SPECIMENOrdering Facility: [facility] Address: [address] [place] [address] Performed By: #### 5 7021-8 ####[facility] LABCLIA [id number] [place] [address] [place] Basophils/100 WBC (Bld) 0.0 % Normal [facility] Comment on above: Order Comment: Speci men Type: BLOOD SPECIMENOrdering Facility: [facility] Address: [address] [place] [address] Performed By: #### 5 7021-8 ####[facility] LABCLIA [id number] [place] [address] [place] Differential cell count method Nom (Bld) Manual Normal [facility] Comment on above: Order Comment: Speci men Type: BLOOD SPECIMENOrdering Facility: [facility] Address: [address] [place] [address] Performed By: #### 5 7021-8 ####[facility] LABCLIA [id number] [place] [address] [place] Eosinophils (Bld) [#/Vol] 0.00 10*3/uL Normal <0.46 [facility] Comment on above: Order Comment: Speci men Type: BLOOD SPECIMENOrdering Facility: [facility] Address: [address] [place] [address] Performed By: #### 5 7021-8 ####[facility] LABCLIA [id number] [place] [address] [place] Eosinophils/100 WBC (Bld) 0.0 % Normal [facility] Comment on above: Order Comment: Speci men Type: BLOOD SPECIMENOrdering Facility: [facility] Address: [address] [place] [address] Performed By: #### 5 7021-8 ####[facility] LABCLIA [id number] [place] [address] [place] Erythrocyte distribution width (RBC) [Ratio] 12.7 % Normal 11.5-15.0 [facility] Comment on above: Order Comment: Speci men Type: BLOOD SPECIMENOrdering Facility: [facility] Address: [address] [place] [address] Performed By: #### 5 7021-8 ####[facility] LABCLIA [id number] [place] [address] [place] Hematocrit (Bld) [Volume fraction] 25.2 % Low 39.0-51.0 [facility] Comment on above: Order Comment: Speci men Type: BLOOD SPECIMENOrdering Facility: [facility] Address: [address] [place] [address] Performed By: #### 5 7021-8 ####[facility] LABIA [id number] [place] [address] [place] Hemoglobin (Bld) [Mass/Vol] 8.4 g/dL Low 13.0-17.0 [facility] Comment on above: Order Comment: Speci men Type: BLOOD SPECIMENOrdering Facility: [facility] Address: [address] [place] [address] Performed By: #### 5 7021-8 ####[facility] LABIA [id number] [place] [address] [place] Lymphocytes (Bld) [#/Vol] 0.27 10*3/uL Low 1.00-4.00 [facility] Comment on above: Order Comment: Speci men Type: BLOOD SPECIMENOrdering Facility: [facility] Address: [address] [place] [address] Performed By: #### 5 7021-8 ####[facility] LABIA [id number] [place] [address] [place] Lymphocytes/100 WBC (Bld) 1.7 % Normal [facility] Comment on above: Order Comment: Speci men Type: BLOOD SPECIMENOrdering Facility: [facility] Address: [address] [place] [address] Performed By: #### 5 7021-8 ####[facility] LABIA [id number] [place] [address] [place] MCH (RBC) [Entitic mass] 29.0 pg Normal 26.0-34.0 [facility] Comment on above: Order Comment: Speci men Type: BLOOD SPECIMENOrdering Facility: [facility] Address: [address] [place] [address] Performed By: #### 5 7021-8 ####[facility] [id number] [place] [address] [place] MCHC (RBC) [Mass/Vol] 33.3 g/dL Normal 30.5-36.0 [facility] Comment on above: Order Comment: Speci men Type: BLOOD SPECIMENOrdering Facility: [facility] Address: [address] [place] [address] Performed By: #### 5 7021-8 ####[facility] [id number] [place] [address] [place] MCV (RBC) [Entitic vol] 86.9 fL Normal 80.0-100.0 [facility] Comment on above: Order Comment: Speci men Type: BLOOD SPECIMENOrdering Facility: [facility] Address: [address] [place] [address] Performed By: #### 5 7021-8 ####[facility] [id number] [place] [address] [place] Monocytes (Bld) [#/Vol] 1.34 10*3/uL High <0.87 [facility] Comment on above: Order Comment: Speci men Type: BLOOD SPECIMENOrdering Facility: [facility] Address: [address] [place] [address] Performed By: #### 5 7021-8 ####[facility] LABCLIA [id number] [place] [address] [place] Monocytes/100 WBC (Bld) 8.5 % Normal [facility] Comment on above: Order Comment: Speci men Type: BLOOD SPECIMENOrdering Facility: [facility] Address: [address] [place] [address] Performed By: #### 5 7021-8 ####[facility] LABCLIA [id number] [place] [address] [place] Neutrophils (Bld) [#/Vol] 14.14 10*3/uL High 1.45-7.50 [facility] Comment on above: Order Comment: Speci men Type: BLOOD SPECIMENOrdering Facility: [facility] Address: [address] [place] [address] Performed By: #### 5 7021-8 ####[facility] LABCLIA [id number] [place] [address] [place] Neutrophils/100 WBC (Bld) 89.8 % Normal [facility] Comment on above: Order Comment: Speci men Type: BLOOD SPECIMENOrdering Facility: [facility] Address: [address] [place] [address] Performed By: #### 5 7021-8 ####[facility] LABCLIA [id number] [place] [address] [place] Nucleated RBC (Bld) [#/Vol] 10*3/uL Normal <0.01 [facility] Comment on above: Order Comment: Speci men Type: BLOOD SPECIMENOrdering Facility: [facility] Address: [address] [place] [address] Performed By: #### 5 7021-8 ####[facility] LABCLIA [id number] [place] [address] [place] Nucleated RBC/100 WBC (Bld) [Ratio] 0.0 /100 WBC Normal [facility] Comment on above: Order Comment: Speci men Type: BLOOD SPECIMENOrdering Facility: [facility] Address: [address] [place] [address] Performed By: #### 5 7021-8 ####[facility] LABCLIA [id number] [place] [address] [place] Platelet mean volume (Bld) [Entitic vol] 9.7 fL Normal 9.0-12.7 [facility] Comment on above: Order Comment: Speci men Type: BLOOD SPECIMENOrdering Facility: [facility] Address: [address] [place] [address] Performed By: #### 5 7021-8 ####[facility] LABCLIA [id number] [place] [address] [place] Platelets (Bld) [#/Vol] 218 10*3/uL Normal 150-400 [facility] Comment on above: Order Comment: Speci men Type: BLOOD SPECIMENOrdering Facility: [facility] Address: [address] [place] [address] Performed By: #### 5 7021-8 ####[facility] LABCLIA [id number] [place] [address] [place] Platelets Estimate (Bld) [#/Vol] Adequate Normal [facility] Comment on above: Order Comment: Speci men Type: BLOOD SPECIMENOrdering Facility: [facility] Address: [address] [place] [address] Performed By: #### 5 7021-8 ####[facility] LABCLIA [id number] [place] [address] [place] Polychromasia LM Ql (Bld) Slight Normal [facility] Comment on above: Order Comment: Speci men Type: BLOOD SPECIMENOrdering Facility: [facility] Address: [address] [place] [address] Performed By: #### 5 7021-8 ####[facility] LABCLIA [id number] [address] [address] [place] RBC (Bld) [#/Vol] 2.90 10*6/uL Low 4.20-6.[address] [facility] Comment on above: Order Comment: Speci men Type: BLOOD SPECIMENOrdering Facility: [facility] Address: [address] [place] [address] Performed By: #### 5 7021-8 ####[facility] LABCLIA [id number] [place] [address] [place] RED CELL MORPH Reviewed: unremarkable Normal [facility] Comment on above: Order Comment: Speci men Type: BLOOD SPECIMENOrdering Facility: [facility] Address: [address] [place] [address] Performed By: #### 5 7021-8 ####[facility] LABCLIA [id number] [place] [address] [place] WBC (Bld) [#/Vol] 15.75 10*3/uL High 3.70-11.[address] [facility] Comment on above: Order Comment: Speci men Type: BLOOD SPECIMENOrdering Facility: [facility] Address: [address] [place] [address] Performed By: #### 5 7021-8 ####[facility] LABCLIA [id number] [place] [address] [place] Comprehensive metabolic 2000 panelon 08-28-2024 Albumin [Mass/Vol] 4.2 g/dL Normal 3.9-4.9 [facility] Comment on above: Order Comment: Speci men Type: BLOOD SPECIMENOrdering Facility: [facility] Address: [address] [place] [address] Performed By: #### 3 040-3, 59810-1, 89697-4, 2777-1 ####[facility] LABCLIA [id number] [place] [address] [place] ALP [Catalytic activity/Vol] 56 U/L Normal 38-113 [facility] Comment on above: Order Comment: Speci men Type: BLOOD SPECIMENOrdering Facility: [facility] Address: [address] [place] [address] Performed By: #### 3 040-3, 90600-4, 45452-1, 2776- ####[facility] LABCLIA [id number] [place] [address] [place] ALT [Catalytic activity/Vol] 113 U/L High 10-54 [facility] Comment on above: Order Comment: Speci men Type: BLOOD SPECIMENOrdering Facility: [facility] Address: [address] [place] [address] Performed By: #### 3 040-3, 86202-4, 40740-6, 2776- ####[facility] LABCLIA [id number] [place] [address] [place] Anion gap [Moles/Vol] 13 mmol/L Normal 8-15 [facility] Comment on above: Order Comment: Speci men Type: BLOOD SPECIMENOrdering Facility: [facility] Address: [address] [place] [address] Performed By: #### 3 040-3, 43985-4, 28675-7, 2776- ####[facility] LABCLIA [id number] [place] [address] [place] AST [Catalytic activity/Vol] 123 U/L High 14-40 [facility] Comment on above: Order Comment: Speci men Type: BLOOD SPECIMENOrdering Facility: [facility] Address: [address] [place] [address] Performed By: #### 3 040-3, 60618-4, 75576-8, 2776- ####[facility] LABCLIA [id number] [place] [address] [place] Bilirubin [Mass/Vol] 1.0 mg/dL Normal 0.2-1.[address] [facility] Comment on above: Order Comment: Speci men Type: BLOOD SPECIMENOrdering Facility: [facility] Address: [address] [place] [address] Performed By: #### 3 040-3, 48619-1, 44932-2, 2776- ####[facility] LABCLIA [id number] [place] [address] [place] Calcium [Mass/Vol] 8.0 mg/dL Low 8.5-10.2 [facility] Comment on above: Order Comment: Speci men Type: BLOOD SPECIMENOrdering Facility: [facility] Address: [address] [place] [address] Performed By: #### 3 040-3, 36306-3, , 2776-10 ####[facility] LABCLIA [id number] [place] [address] [place] Chloride [Moles/Vol] 103 mmol/L Normal 98-[address] [facility] Comment on above: Order Comment: Speci men Type: BLOOD SPECIMENOrdering Facility: [facility] Address: [address] [place] [address] Performed By: #### 3 040-3, 74228-0, 68414-3, 2776-10 ####[facility] LABCLIA [id number] [place] [address] [place] CO2 [Moles/Vol] 23 mmol/L Normal 22-30 [facility] Comment on above: Order Comment: Speci men Type: BLOOD SPECIMENOrdering Facility: [facility] Address: [address] [place] [address] Performed By: #### 3 040-3, 29087-6, 20830-8, 2776- ####[facility] LABCLIA [id number] [id number] [address] [place] Creatinine [Mass/Vol] 0.98 mg/dL Normal 0.73-1.22 [facility] Comment on above: Order Comment: Theo narvaez Type: BLOOD SPECIMENOrdering Facility: [facility] Address: [address] [place] [address] Performed By: #### 3 040-3, 26674-7, 81524-8, 2776- ####[facility] LABCLIA [id number] [place] [address] [place] Creatinine and Glomerular filtration rate.predicted panel (S/P/Bld) 92 mL/min/1.73m??? Normal >=60 [facility] Comment on above: Order Comment: Theo narvaez Type: BLOOD SPECIMENOrdering Facility: [facility] Address: [address] [place] [address] Result Comment: Marisa mated Glomerular Filtration Rate (eGFR) is calculated using the 2020 CKD-EPI creatinine equation. This equation utilizes serum creatinine, sex, and age as parameters. The creatinine assay has traceable calibration to isotope dilution-mass spectrometry. Refer to KDIGO guidelines for clinical interpretation. In patients with unstable renal function, e.g. those with acute kidney injury, the eGFR may not accurately reflect actual GFR. Performed By: #### 3 040-3, 76945-7, 00564-4, 2776-10 ####[facility] LABCLIA [id number] [place] [address] [place] Glucose [Mass/Vol] 256 mg/dL High 74-99 [facility] Comment on above: Order Comment: Theo narvaez Type: BLOOD SPECIMENOrdering Facility: [facility] Address: [address] [place] [address] Result Comment: The [place] [employer] (ADA) provides guidance for cutoff values for fasting glucose and random glucose. The ADA defines fasting as no caloric intake for at least 8 hours. Fasting plasma glucose results between 100 to 125 mg/dL indicate increased risk for diabetes (prediabetes).Fasting plasma glucose results greater than or equal to 126 mg/dL meet the criteria for diagnosis of diabetes. In the absence of unequivocal hyperglycemia, results should be confirmed by repeat testing. In a patient with classic symptoms of hyperglycemia or hyperglycemic crisis, random plasma glucose results greater than or equal to 200 mg/dL meet the criteria for diagnosis of diabetes.Reference: Standards of Medical Care in Diabetes 2016, [place] [employer] Association. Diabetes Care. 2016.39(Suppl 1). Performed By: #### 3 040-3, 39976-6, 67156-1, 2776- ####[facility] LABCLIA [id number] [place] [address] [place] Potassium [Moles/Vol] 4.6 mmol/L Normal 3.7-5.1 [facility] Comment on above: Order Comment: Speci men Type: BLOOD SPECIMENOrdering Facility: [facility] Address: [address] [place] [address] Performed By: #### 3 040-3, 37015-1, , 2776-10 ####[facility] LABIA [id number] [place] [address] [place] Protein [Mass/Vol] 5.4 g/dL Low 6.3-8.0 [facility] Comment on above: Order Comment: Speci men Type: BLOOD SPECIMENOrdering Facility: [facility] Address: [address] [place] [address] Performed By: #### 3 040-3, 06817-7, , 2776-10 ####[facility] LABIA [id number] [place] [address] [place] Sodium [Moles/Vol] 139 mmol/L Normal 136-144 [facility] Comment on above: Order Comment: Speci men Type: BLOOD SPECIMENOrdering Facility: [facility] Address: [address] [place] [address] Performed By: #### 3 040-3, 60018-7, , 2776-10 ####[facility] LABCLIA [id number] [place] [address] [place] Urea nitrogen [Mass/Vol] 17 mg/dL Normal 9-24 [facility] Comment on above: Order Comment: Speci men Type: BLOOD SPECIMENOrdering Facility: [facility] Address: [address] [place] [address] Performed By: #### 3 040-3, 43671-9, 87086-9, 7-1 ####[facility] LABCLIA [id number] [place] [address] [place] Lipase SerPl-cCncon 08-28-20 24 Lipase [Catalytic activity/Vol] 19 U/L Normal 16-61 [facility] Comment on above: Order Comment: Speci men Type: BLOOD SPECIMENOrdering Facility: [facility] Address: [address] [place] [address] Performed By: #### 3 040-3, 47158-4, 15594-0, 7-1 ####[facility] LABCLIA [id number] [address] [place] Magnesium SerPl-mCncon 08-28 Magnesium [Mass/Vol] 1.7 mg/dL Normal 1.7-2.[address] [facility] Comment on above: Order Comment: Speci men Type: BLOOD SPECIMENOrdering Facility: [facility] Address: [address] [place] [address] Performed By: #### 3 040-3, 06353-0, 66722-9, 2777-1 ####[facility] LABCLIA [id number] [place] [address] [place] Microorganism Spec Culton Microorganism identified Cx Nom (Unsp spec) CULTURE, FUNGAL: No Fungus isolated after 28 days FUNGAL SMEAR: No fungus seen Normal [facility] Comment on above: Performed By: #### 6 35-3, 6462-6, 19518-1 ####[facility] LABCLIA [id number] [place] [address] [place] OPERATIVE NOon 08-28-2024 OPERATIVE NO Normal [facility] PT panel Coag (PPP)on 2023 INR Coag (PPP) [Relative time] 1.1 {INR} Normal 0.9-1.3 [facility] Comment on above: Order Comment: Theo narvaez Type: BLOOD SPECIMENOrdering Facility: [facility] Address: [address] [place] [address] Result Comment: Carmita min K Antagonist (VKA) Therapeutic Range: INR 2 to 3 (Target INR of 2.5)Note: For patients treated with VKA drugs, such as warfarin, the [place] [employer] 2012 Guideline recommends a therapeutic INR range of 2 to 3 (target INR of 2.5). This recommendation includes high-risk patients with antiphospholipid syndrome with previous arterial or venous thromboembolism, current-generation mechanical or bioprosthetic aortic heart valve replacement.Note: Patients with mechanical aortic valve replacement and additional risk factors for thromboembolic events (atrial fibrillation, previous thromboembolism, LV dysfunction, hypercoagulable conditions) or an older generation mechanical AVR (i.e., ball in-Cage) or any mechanical MVR should have a INR therapeutic range of 2.5 to 3.5 (target INR of 3).Guillaumett GH, et al. Chest 2012, 141:7S-47SNishimura RA, et al. [facility] 2017, 70: 252-289 Performed By: #### 1 4979-9, 45556-7 ####[facility] LABIA [id number] [place] [address] [place] PT Coag (PPP) [Time] 11.9 s Normal 9.7-13.[address] [facility] Comment on above: Order Comment: Theo narvaez Type: BLOOD SPECIMENOrdering Facility: [facility] Address: [address] [place] [id number] Performed By: #### 1 4979-9, 72305-4 ####[facility] LABCLIA [id number] [place] [address] [place] Phosphate SerPl-mCncon 08-28 Phosphate [Mass/Vol] 4.1 mg/dL Normal 2.7-4.[address] [facility] Comment on above: Order Comment: Speci men Type: BLOOD SPECIMENOrdering Facility: [facility] Address: [address] [place] [address] Performed By: #### 3 040-3, 89941-7, 95377-5, 2777-1 ####[facility] LABCLIA [id number] [place] [address] [place] STAPHYLOCOCCUS AUREUS AND MR SA SCREEN, PCR, NASALon 08-28-2024 S. aureus and MRSA panel NAZ+probe (Nose) Not detected Normal Not Detected [facility] Comment on above: Order Comment: Speci men Type: SWABOrdering Facility: [facility] Address: [address] [place] [address] Performed By: #### S APCR ####[facility] LABCLIA [id number] [place] [address] [place] SURGICAL PATHOLOGYon 024 CASE REPORT Normal [facility] Comment on above: Order Comment: Speci men Type: TISSUE SPECIMENOrdering Facility: [facility] Address: [address] [place] [address] Result Comment: Surg [facility] Pathology Report Case: [id number] Provider: Jesus Jacobson MD Collected: 08/28/2024 05:31 PMOrdering Location: Admitting Received: 08/29/2024 03:53 PMPathologist: Lilia Hendricks MDSpecimens: A) - Lymph Node (Specify Site in Comments), retro portal lymph node B) - Pancreaticoduodenectomy (Whipple Procedure) Performed By: #### S ####[facility] LABCLIA [id number] [place] [address] [place] CLINICAL HISTORY Normal [facility] Comment on above: Order Comment: Speci men Type: TISSUE SPECIMENOrdering Facility: [facility] Address: [address] [place] [address] Result Comment: Pre- op diagnosis:IPMN (intraductal papillary mucinous neoplasm) [D49.0] Performed By: #### S ####[facility] LABCLIA [id number] [address] DIAGNOSIS COMMENT Normal [facility] Comment on above: Order Comment: Speci men Type: TISSUE SPECIMENOrdering Facility: [facility] Address: [address] [place] [address] Result Comment: -Int raductal papillary mucinous neoplasm (3.9 cm), intestinal type, involving the distal main pancreatic duct and and branch ducts, with focal high-grade dysplasia-No invasive tumor identified in the entirely submitted lesion-Background pancreas with chronic pancreatitis and lobulocentric atrophy-The margins are negative for tumor-Spleen with mild reactive changes-25 benign lymph nodes Performed By: #### S ####[facility] LABCLIA [id number] [address] FINAL DIAGNOSIS Normal [facility] Comment on above: Order Comment: Speci brice Type: TISSUE SPECIMENOrdering Facility: [facility] Address: [address] [place] [address] Result Comment: A. R etroportal lymph node, resection-1 benign lymph nodeB. Pancreas, duodenum, bile duct, pancreatoduodenectomy-Intraductal papillary mucinous neoplasm (3.9 cm), intestinal type, with focal high-grade dysplasia-The margins are negative for tumor-25 benign lymph nodes-See comment Performed By: #### S ####[facility] LABCLIA [id number] [address] FINAL PERFORMING LAB Normal [facility] Comment on above: Order Comment: Yasmini brice Type: TISSUE SPECIMENOrdering Facility: [facility] Address: [address] [place] [address] Result Comment: Diag nostic interpretation performed at [facility], [address] [place] [address] CLIA# [id number] Director: Yakov Gurrola M.D. Performed By: #### S ####[facility] LABCLIA [id number] [place] [address] [place] GROSS DESCRIPTION Normal [facility] Comment on above: Order Comment: Speci men Type: TISSUE SPECIMENOrdering Facility: [facility] Address: [address] [place] [address] Result Comment: A. L ymph Node (Specify Site in Comments)Received in formalin designated retroportal lymph node is a clemente-purple lymph node with attached yellow fatty tissue measuring 2.8 x 0.8 x 0.4 cm. The lymph node is bisected and totally submitted in 1 cassette.Gross examination performed at [facility], [address] [place] [address] CLIA# [id number] August 30, 2024 5:11 PMB. Pancreaticoduodenectomy (Whipple Procedure)Received in formalin is a Whipple specimen consisting of a segment of duodenum measuring 22.5 cm in length by 6.5 cm in average circumference, a 1.0 cm in length common bile duct and a 15.0 x 5.0 x 4.5 cm complete pancreas and peripancreatic fat surrounding its head. Per the requisition, blue ink shoemaker the vascular groove surface and yellow ink shoemaker the uncinate margin. The specimen is inked as follows: - Common bile duct, outer surface: [place] - Anterior outer surface of pancreas: Red - Posterior artery surface of pancreas: Black - Proximal intestinal resection margin: Blue - Distal intestinal resection margin: Green - Uncinate process: Yellow - Vascular groove: BlueThe main pancreatic duct is dilated, averaging 0.8 cm in diameter at the the head and 0.6 cm in diameter at the body, although it is probe patent. The common bile duct measures 0.8 cm in diameter at the margin and is not probe patent. The specimen is bivalved to reveal a 3.9 x 1.9 x 1.6 cm well-circumscribed, pancreatic duct-centered, cystic lesion, located at the tail of the pancreas. A gross photograph is taken. The lesion is well-defined, clemente-brown, soft, cystic, and communicates with the main pancreatic duct, grossly appearing to be confined to the pancreas. The lesion does not involve the ampulla, common bile duct, duodenum, or spleen. The lesion is located 8 cm cm from the closest surgical margin (common bile duct resection margin). The lesion abuts the posterior peripancreatic soft tissue resection margin. The remaining surgical margins are not involved by the tumor. The remaining pancreatic parenchyma is clemente and firm, intermingled with yellow and indurated areas. The parenchyma is also lobulated with no additional lesions identified. The portions of duodenum are unremarkable.A complete lymph node dissection is performed, revealing 11 rubbery nodular structures (possible lymph nodes), ranging from 1.0 cm to 1.8 cm.Attached to the main specimen is a spleen measuring 9.0 x 7.0 x 6.0 cm and weighing 166.2 g. The splenic capsule is smooth and purple-marquez. The cut surface of the spleen is dark red and soft. Malpighian corpuscles are not prominent.Weight Clerk sections are submitted as follows:B1: Common bile duct margin, en faceB2: Proximal and distal intestinal resection margins, perpendicular, 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 sections - Lesion submitted from distal to proximal in cassettes [id number]: Lesion and anterior peripancreatic soft tissue, totally submittedB7-B10: Lesion and posterior peripancreatic soft tissue, totally oixmtdkbvN64: Lesion, remaining, totally rnsjbskuqL87: Dilated main pancreatic duct at the body, 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 djzablyU87-Q18: Uncinate process, perpendicular, totally orrtpxswyF91: Dilated main pancreatic duct at the head,, bile duct, and duodenum, 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 aknqlzgT39-Q64: Vascular groove, perpendicular, totally pthtzmpojH92: 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, 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 laeqnrjgC70-E11: 1 possible lymph node per cassette, bisected and totally wamtyehkcY00: 2 possible lymph nodes, totally ofuirlxpbN04: 5 possible lymph nodes, totally lzsmzgkaqM26-T40: Peripancreatic adipose tissue for microscopic lymph node identification, totally submittedGross examination performed at [facility], [address] [place] [address] [id number] 09/01/24 11:46 AM Performed By: #### S ####[facility] LABCLIA [id number] [place] [address] [place] XR CHEST 1V FRONTAL PORTon 1 10-28-2023 XR CHEST 1V FRONTAL PORT Normal [facility] aPTT PPPon 08-28-2024 aPTT Coag (PPP) [Time] 21.7 s Low 23.0-32.4 [facility] Comment on above: Order Comment: Speci men Type: BLOOD SPECIMENOrdering Facility: [facility] Address: [address] [place] [address] Performed By: #### 1 4979-9, 33028-8 ####[facility] LABCLIA [id number] [place] [address] [place] CBC W Auto Differential pane l (Bld)on 08-22-2024 Basophils (Bld) [#/Vol] 0.04 10*3/uL Normal <0.11 [facility] Comment on above: Order Comment: Speci men Type: BLOOD SPECIMENOrdering Facility: [facility] Address: [address] [place] [address] Performed By: #### 5 7021-8 ####[facility] LABCLIA [id number] [place] [address] [place] Basophils/100 WBC (Bld) 0.6 % Normal [facility] Comment on above: Order Comment: Speci men Type: BLOOD SPECIMENOrdering Facility: [facility] Address: [address] [place] [address] Performed By: #### 5 7021-8 ####[facility] LABCLIA [id number] [place] [address] [place] Differential cell count method Nom (Bld) Auto Normal [facility] Comment on above: Order Comment: Speci men Type: BLOOD SPECIMENOrdering Facility: [facility] Address: [address] [place] [address] Performed By: #### 5 7021-8 ####[facility] LABCLIA [id number] [place] [address] [place] Eosinophils (Bld) [#/Vol] 0.04 10*3/uL Normal <0.46 [facility] Comment on above: Order Comment: Speci men Type: BLOOD SPECIMENOrdering Facility: [facility] Address: [address] [place] [address] Performed By: #### 5 7021-8 ####[facility] LABCLIA [id number] [place] [address] [place] Eosinophils/100 WBC (Bld) 0.6 % Normal [facility] Comment on above: Order Comment: Speci men Type: BLOOD SPECIMENOrdering Facility: [facility] Address: [address] [place] [address] Performed By: #### 5 7021-8 ####[facility] LABIA [id number] [place] [address] [place] Erythrocyte distribution width (RBC) [Ratio] 12.5 % Normal 11.5-15.0 [facility] Comment on above: Order Comment: Speci men Type: BLOOD SPECIMENOrdering Facility: [facility] Address: [address] [place] [address] Performed By: #### 5 7021-8 ####[facility] LABIA [id number] [place] [address] [place] Hematocrit (Bld) [Volume fraction] 42.3 % Normal 39.0-51.0 [facility] Comment on above: Order Comment: Speci men Type: BLOOD SPECIMENOrdering Facility: [facility] Address: [address] [place] [address] Performed By: #### 5 7021-8 ####[facility] LABIA [id number] [place] [address] [place] Hemoglobin (Bld) [Mass/Vol] 13.6 g/dL Normal 13.0-17.0 [facility] Comment on above: Order Comment: Speci men Type: BLOOD SPECIMENOrdering Facility: [facility] Address: [address] [place] [address] Performed By: #### 5 7021-8 ####[facility] LABCLIA [id number] [place] [address] [place] Immature granulocytes (Bld) [#/Vol] 0.03 10*3/uL Normal <0.10 [facility] Comment on above: Order Comment: Speci men Type: BLOOD SPECIMENOrdering Facility: [facility] Address: [address] [place] [address] Performed By: #### 5 7021-8 ####[facility] LABCLIA [id number] [place] [address] [place] Immature granulocytes/100 WBC (Bld) 0.5 % Normal [facility] Comment on above: Order Comment: Speci men Type: BLOOD SPECIMENOrdering Facility: [facility] Address: [address] [place] [address] Performed By: #### 5 7021-8 ####[facility] LABIA [id number] [place] [address] [place] Lymphocytes (Bld) [#/Vol] 1.67 10*3/uL Normal 1.00-4.00 [facility] Comment on above: Order Comment: Speci men Type: BLOOD SPECIMENOrdering Facility: [facility] Address: [address] [place] [address] Performed By: #### 5 7021-8 ####[facility] LABCLIA [id number] [place] [address] [place] Lymphocytes/100 WBC (Bld) 25.6 % Normal [facility] Comment on above: Order Comment: Speci men Type: BLOOD SPECIMENOrdering Facility: [facility] Address: [address] [place] [address] Performed By: #### 5 7021-8 ####[facility] LABCLIA [id number] [place] [address] [place] MCH (RBC) [Entitic mass] 28.6 pg Normal 26.0-34.0 [facility] Comment on above: Order Comment: Speci men Type: BLOOD SPECIMENOrdering Facility: [facility] Address: [address] [place] [address] Performed By: #### 5 7021-8 ####[facility] LABIA [id number] [place] [address] [place] MCHC (RBC) [Mass/Vol] 32.2 g/dL Normal 30.5-36.0 [facility] Comment on above: Order Comment: Speci men Type: BLOOD SPECIMENOrdering Facility: [facility] Address: [address] [place] [address] Performed By: #### 5 7021-8 ####[facility] LABIA [id number] [place] [address] [place] MCV (RBC) [Entitic vol] 89.1 fL Normal 80.0-100.0 [facility] Comment on above: Order Comment: Speci men Type: BLOOD SPECIMENOrdering Facility: [facility] Address: [address] [place] [address] Performed By: #### 5 7021-8 ####[facility] LABIA [id number] [place] [address] [place] Monocytes (Bld) [#/Vol] 0.49 10*3/uL Normal <0.87 [facility] Comment on above: Order Comment: Speci men Type: BLOOD SPECIMENOrdering Facility: [facility] Address: [address] [place] [address] Performed By: #### 5 7021-8 ####[facility] LABIA [id number] [address] [place] Monocytes/100 WBC (Bld) 7.5 % Normal [facility] Comment on above: Order Comment: Speci men Type: BLOOD SPECIMENOrdering Facility: [facility] Address: [address] [place] [address] Performed By: #### 5 7021-8 ####[facility] LABCLIA [id number] [place] [address] [place] Neutrophils (Bld) [#/Vol] 4.25 10*3/uL Normal 1.45-7.50 [facility] Comment on above: Order Comment: Speci men Type: BLOOD SPECIMENOrdering Facility: [facility] Address: [address] [place] [address] Performed By: #### 5 7021-8 ####[facility] LABCLIA [id number] [place] [address] [place] Neutrophils/100 WBC (Bld) 65.2 % Normal [facility] Comment on above: Order Comment: Speci men Type: BLOOD SPECIMENOrdering Facility: [facility] Address: [address] [place] [address] Performed By: #### 5 7021-8 ####[facility] LABCLIA [id number] [place] [address] [place] Nucleated RBC (Bld) [#/Vol] 10*3/uL Normal <0.01 [facility] Comment on above: Order Comment: Speci men Type: BLOOD SPECIMENOrdering Facility: [facility] Address: [address] [place] [address] Performed By: #### 5 7021-8 ####[facility] LABCLIA [id number] [place] [address] [place] Nucleated RBC/100 WBC (Bld) [Ratio] 0.0 /100 WBC Normal [facility] Comment on above: Order Comment: Speci men Type: BLOOD SPECIMENOrdering Facility: [facility] Address: [address] [place] [address] Performed By: #### 5 7021-8 ####[facility] LABCLIA [id number] [place] [address] [place] Platelet mean volume (Bld) [Entitic vol] 9.3 fL Normal 9.0-12.7 [facility] Comment on above: Order Comment: Speci men Type: BLOOD SPECIMENOrdering Facility: [facility] Address: [address] [place] [address] Performed By: #### 5 7021-8 ####[facility] LABCLIA [id number] [place] [address] [place] Platelets (Bld) [#/Vol] 245 10*3/uL Normal 150-400 [facility] Comment on above: Order Comment: Speci men Type: BLOOD SPECIMENOrdering Facility: [facility] Address: [address] [place] [address] Performed By: #### 5 7021-8 ####[facility] LABCLIA [id number] [place] [address] [place] RBC (Bld) [#/Vol] 4.75 10*6/uL Normal 4.20-6.[address] [facility] Comment on above: Order Comment: Speci men Type: BLOOD SPECIMENOrdering Facility: [facility] Address: [address] [place] [address] Performed By: #### 5 7021-8 ####[facility] LABCLIA [id number] [place] [address] [place] WBC (Bld) [#/Vol] 6.52 10*3/uL Normal 3.70-11.[address] [facility] Comment on above: Order Comment: Speci men Type: BLOOD SPECIMENOrdering Facility: [facility] Address: [address] [place] [address] Performed By: #### 5 7021-8 ####[facility] LABCLIA [id number] [place] [address] [place] CNNURSEon 08-22-2024 CNNURSE Normal [facility] CNOVon 08-22-2024 CNOV Normal [facility] CONFIRM BLOOD TYPEon 024 ABO O Normal [facility] Comment on above: Order Comment: Speci men Type: BLOOD SPECIMENOrdering Facility: [facility] Address: [address] [place] [address] Performed By: #### C ONABO ####CC MAIN BLOOD BANKCLIA [id number] [address] [address] [place] Rh Nom (Bld) Positive Normal [facility] Comment on above: Order Comment: Speci men Type: BLOOD SPECIMENOrdering Facility: [facility] Address: [address] [place] [address] Performed By: #### C ONABO ####CC [facility] BLOOD BANKIA [id number] [place] [address] [place] [facility] Comprehensive metabolic 2000 panelon 08-22-2024 Albumin [Mass/Vol] 4.7 g/dL Normal 3.9-4.9 [facility] Comment on above: Order Comment: Speci men Type: BLOOD SPECIMENOrdering Facility: [facility] Address: [address] [place], [place] [address] Performed By: #### 2 4323-8 ####[facility] LABCLIA [id number] [place] [address] [place] ALP [Catalytic activity/Vol] 108 U/L Normal 38-113 [facility] Comment on above: Order Comment: Speci men Type: BLOOD SPECIMENOrdering Facility: [facility] Address: [address] [place] [id number] Performed By: #### 2 4323-8 ####[facility] LABCLIA [id number] [place] [address] [place] ALT [Catalytic activity/Vol] 35 U/L Normal 10-54 [facility] Comment on above: Order Comment: Speci men Type: BLOOD SPECIMENOrdering Facility: [facility] Address: [address] [place] [id number] Performed By: #### 2 4323-8 ####[facility] LABCLIA [id number] [place] [address] [place] Anion gap [Moles/Vol] 14 mmol/L Normal 8-15 [facility] Comment on above: Order Comment: Speci men Type: BLOOD SPECIMENOrdering Facility: [facility] Address: [address] [place] [address] Performed By: #### 2 4323-8 ####[facility] LABCLIA [id number] [place] [address] [place] AST [Catalytic activity/Vol] 31 U/L Normal 14-40 [facility] Comment on above: Order Comment: Speci men Type: BLOOD SPECIMENOrdering Facility: [facility] Address: [address] [place] [address] Performed By: #### 2 4323-8 ####[facility] LABCLIA [id number] [place] [address] [place] Bilirubin [Mass/Vol] 0.2 mg/dL Normal 0.2-1.[address] [facility] Comment on above: Order Comment: Speci men Type: BLOOD SPECIMENOrdering Facility: [facility] Address: [address] [place] [address] Performed By: #### 2 4323-8 ####[facility] LABCLIA [id number] [place] [address] [place] Calcium [Mass/Vol] 9.9 mg/dL Normal 8.5-10.2 [facility] Comment on above: Order Comment: Speci men Type: BLOOD SPECIMENOrdering Facility: [facility] Address: [address] [place] [address] Performed By: #### 2 4323-8 ####[facility] LABCLIA [id number] [place] [address] [place] Chloride [Moles/Vol] 103 mmol/L Normal 98-[address] [facility] Comment on above: Order Comment: Speci men Type: BLOOD SPECIMENOrdering Facility: [facility] Address: [address] [place] [address] Performed By: #### 2 4323-8 ####[facility] LABCLIA [id number] [place] [address] [place] CO2 [Moles/Vol] 26 mmol/L Normal 22-30 [facility] Comment on above: Order Comment: Speci men Type: BLOOD SPECIMENOrdering Facility: [facility] Address: [address] [place] [address] Performed By: #### 2 4323-8 ####[facility] LABIA [id number] [address] [place] Creatinine [Mass/Vol] 1.10 mg/dL Normal 0.73-1.22 [facility] Comment on above: Order Comment: Speci men Type: BLOOD SPECIMENOrdering Facility: [facility] Address: [address] [place] [address] Performed By: #### 2 4323-8 ####[facility] LABIA [id number] [address] OF [facility] Creatinine and Glomerular filtration rate.predicted panel (S/P/Bld) 80 mL/min/1.73m??? Normal >=60 [facility] Comment on above: Order Comment: Speci men Type: BLOOD SPECIMENOrdering Facility: [facility] Address: [address] [place] [address] Result Comment: Marisa mated Glomerular Filtration Rate (eGFR) is calculated using the 2020 CKD-EPI creatinine equation. This equation utilizes serum creatinine, sex, and age as parameters. The creatinine assay has traceable calibration to isotope dilution-mass spectrometry. Refer to KDIGO guidelines for clinical interpretation. In patients with unstable renal function, e.g. those with acute kidney injury, the eGFR may not accurately reflect actual GFR. Performed By: #### 2 4323-8 ####[facility] LABCLIA [id number] [place] [address] [place] Glucose [Mass/Vol] 164 mg/dL High 74-99 [facility] Comment on above: Order Comment: Speci men Type: BLOOD SPECIMENOrdering Facility: [facility] Address: [address] [place] [address] Result Comment: The [place] Diabetes Association (ADA) provides guidance for cutoff values for fasting glucose and random glucose. The ADA defines fasting as no caloric intake for at least 8 hours. Fasting plasma glucose results between 100 to 125 mg/dL indicate increased risk for diabetes (prediabetes).Fasting plasma glucose results greater than or equal to 126 mg/dL meet the criteria for diagnosis of diabetes. In the absence of unequivocal hyperglycemia, results should be confirmed by repeat testing. In a patient with classic symptoms of hyperglycemia or hyperglycemic crisis, random plasma glucose results greater than or equal to 200 mg/dL meet the criteria for diagnosis of diabetes.Reference: Standards of Medical Care in Diabetes 2016, [place] Diabetes Association. Diabetes Care. 2016.39(Suppl 1). Performed By: #### 2 4323-8 ####[facility] LABCLIA [id number] [place] [address] [place] Potassium [Moles/Vol] 4.1 mmol/L Normal 3.7-5.1 [facility] Comment on above: Order Comment: Speci men Type: BLOOD SPECIMENOrdering Facility: [facility] Address: [address] [place] [address] Performed By: #### 2 4323-8 ####[facility] LABCLIA [id number] [place] [address] [place] Protein [Mass/Vol] 7.2 g/dL Normal 6.3-8.0 [facility] Comment on above: Order Comment: Speci men Type: BLOOD SPECIMENOrdering Facility: [facility] Address: [address] [place], [place] [address] Performed By: #### 2 4323-8 ####[facility] LABCLIA [id number] [place] [address] [place] Sodium [Moles/Vol] 143 mmol/L Normal 136-144 [facility] Comment on above: Order Comment: Speci men Type: BLOOD SPECIMENOrdering Facility: [facility] Address: [address] [place] [address] Performed By: #### 2 4323-8 ####[facility] LABCLIA [id number] [place] [address] [place] Urea nitrogen [Mass/Vol] 15 mg/dL Normal 9-24 [facility] Comment on above: Order Comment: Speci men Type: BLOOD SPECIMENOrdering Facility: [facility] Address: [address] [place] [address] Performed By: #### 2 4323-8 ####[facility] LABCLIA [id number] [place] [address] [place] ECG COMPLETEon 08-22-2024 ECG COMPLETE Normal [facility] HISTORY PHYSICALon HISTORY PHYSICAL Normal [facility] TYPE AND SCREEN,30 DAYon ABO O Normal [facility] Comment on above: Order Comment: Speci men Type: BLOOD SPECIMENOrdering Facility: [facility] Address: [address] [place] [address] Performed By: #### T SCR30 ####CC MAIN BLOOD BANKCLIA [id number] [place] [address] [place] Rh Nom (Bld) Positive Normal [facility] Comment on above: Order Comment: Speci men Type: BLOOD SPECIMENOrdering Facility: [facility] Address: [address] [place] [address] Performed By: #### T SCR30 ####CC MAIN BLOOD BANKCLIA [id number] [place] [address] [place] XR CHEST 2V FRONTAL/LATon XR CHEST 2V FRONTAL/LAT Normal [facility] XR Chest PA and Lateralon IMPRESSION: No acute disease identified in the lungs or mediastinum. Little interval change since 01/31/2024. Settlement Technician: PSCYvrose Transcribe Date/Time: Aug 22 2024 4:29P Dictated by : GEE LITTLEJOHN MD This examination was interpreted and the report reviewed and electronically signed by: GEE LITTLEJOHN MD on Aug 22 2024 4:32PM [facility] DIVISION OF RADIOLOGY * * *Final Report* * * DATE OF EXAM: Aug 22 2024 1:31PM AOX [id number] - XR CHEST 2V FRONTAL/LAT / PROCEDURE REASON: multiple diagnoses * * * * Physician Interpretation * * * * EXAMINATION: CHEST RADIOGRAPH (2 VIEW FRONTAL & LATERAL) CLINICAL HISTORY: IPMN (intraductal papillary mucinous neoplasm) Preoperative examination MQ: XC2_6 EXAM DATE/TIME: 08/22/2024 1:31 PM COMPARISON: PA and lateral CXR 01/31/2024 RESULT: Lines, tubes, and devices: None. Lungs and pleura: The lungs appear clear of consolidation or mass. No pleural effusion or pneumothorax is identified. Cardiomediastinal silhouette: Stable cardiomediastinal silhouette. The heart size and pulmonary vascular pattern are within normal limits. Bones and soft tissues: The patient is status post vertebroplasty at multiple thoracic vertebral levels. A TENS unit is noted in the mid thoracic vertebral canal. A metallic plate and screws have been applied to the sternum. DIVISION OF RADIOLOGY Provider, [facility] Stefanie engle Caldwell - 08/22/2024 * * *Final Report* * * DATE OF EXAM: Aug 22 2024 1:31PM AOX [id number] - XR CHEST 2V FRONTAL/LAT / PROCEDURE REASON: multiple diagnoses * * * * Physician Interpretation * * * * EXAMINATION: CHEST RADIOGRAPH (2 VIEW FRONTAL & LATERAL) CLINICAL HISTORY: IPMN (intraductal papillary mucinous neoplasm) Preoperative examination MQ: XC2_6 EXAM DATE/TIME: 08/22/2024 1:31 PM COMPARISON: PA and lateral CXR 01/31/2024 RESULT: Lines, tubes, and devices: None. Lungs and pleura: The lungs appear clear of consolidation or mass. No pleural effusion or pneumothorax is identified. Cardiomediastinal silhouette: Stable cardiomediastinal silhouette. The heart size and pulmonary vascular pattern are within normal limits. Bones and soft tissues: The patient is status post vertebroplasty at multiple thoracic vertebral levels. A TENS unit is noted in the mid thoracic vertebral canal. A metallic plate and screws have been applied to the sternum. IMPRESSION IMPRESSION: No acute disease identified in the lungs or mediastinum. Little interval change since 01/31/2024. Settlement Technician: PAPITO Transcribe Date/Time: Aug 22 2024 4:29P Dictated by : GEE LITTLEJOHN MD This examination was interpreted and the report reviewed and electronically signed by: GEE LITTLEJOHN MD on Aug 22 2024 4:32PM EST [facility] Radiology Study observation (narrative) [facility] XR Chest PA and LateralOrder ed By: [facility] Provider on 08-22-2024 [facility] CT CHEST WO CONTRASTon 08-11 CT CHEST WO CONTRAST EXAMINATION: CT OF THE CHEST WITHOUT CONTRAST 08/11/2024 12:58 pm TECHNIQUE: CT of the chest was performed without the administration of intravenous contrast. Multiplanar reformatted images are provided for review. Automated exposure control, iterative reconstruction, and/or weight based adjustment of the mA/kV was utilized to reduce the radiation dose to as low as reasonably achievable. COMPARISON: None. HISTORY: ORDERING SYSTEM PROVIDED HISTORY: fall down stairs 08/07/24 left anterior lower lateral chest wall pain worsening. TECHNOLOGIST PROVIDED HISTORY: fall down stairs 08/07/24 left anterior lower lateral chest wall pain worsening. Decision Support Exception - unselect if not a suspected or confirmed emergency medical condition->Emergency Medical Condition (MA) FINDINGS: Mediastinum: Thoracic aorta, pulmonary arteries, heart, pericardium and mediastinum appear stable. No lymphadenopathy. Minimal coronary artery calcification. Lungs/pleura: No acute lung parenchyma or pleural disease. No evidence of pleural effusion or pneumothorax. Minimal atelectatic changes lower lobes. Upper Abdomen: Fatty liver. Status post cholecystectomy. No acute abnormality. Soft Tissues/Bones: Moderate kyphotic deformity. Multiple compression injuries with vertebroplasty cement between T5 and T9. No evidence of acute compression injuries. Stable postthoracotomy changes. Stable pain stimulation device. Scapulas appear intact. Visualized clavicles appear intact. No evidence of rib fractures on either side. IMPRESSION: 1. No acute cardiopulmonary process. 2. Fatty liver. 3. Status post cholecystectomy. 4. Multiple compression injuries with vertebroplasty cement between T5 and T9. No evidence of acute compression injuries. 5. Stable postthoracotomy changes. 6. Stable pain stimulation device. 7. No evidence of rib fractures on either side. Interpreted by: Shayy Granda MD Signed by: Shayy Granda MD 08/11/[address] [facility] CNPNon 08-08-2024 CNPN Normal [facility] XR RIBS LEFT INCLUDE CHEST ( MIN 3 VIEWS)on 08-08-2024 XR RIBS LEFT INCLUDE CHEST (MIN 3 VIEWS) EXAMINATION: 5 XRAY VIEWS OF THE LEFT RIBS WITH FRONTAL XRAY VIEW OF THE CHEST 08/08/2024 1:42 pm COMPARISON: 03/17/2024 HISTORY: ORDERING SYSTEM PROVIDED HISTORY: fall/injury TECHNOLOGIST PROVIDED HISTORY: fall/injury FINDINGS: Chest: Heart size stable. No acute airspace disease. No pneumothorax. No pleural effusion. No pulmonary vascular congestion or edema. Left ribs: No fracture. No destructive bony abnormality. IMPRESSION: No acute abnormalities seen in the chest or left ribs Interpreted by: Lauri Billy MD Signed by: Lauri Billy MD 08/08/[address] [facility] XR Ribs - left Views and [place] st PAon 08-08-2024 No acute abnormaliti es seen in the chest or left ribs PN RIS CONSOLIDATED EXAMINATION: 5 XRAY VIEWS OF THE LEFT RIBS WITH FRONTAL XRAY VIEW OF THE CHEST 08/08/2024 1:42 pm COMPARISON: 03/17/2024 HISTORY: ORDERING SYSTEM PROVIDED HISTORY: fall/injury TECHNOLOGIST PROVIDED HISTORY: fall/injury FINDINGS: Chest: Heart size stable. No acute airspace disease. No pneumothorax. No pleural effusion. No pulmonary vascular congestion or edema. Left ribs: No fracture. No destructive bony abnormality. [facility] RIS CONSOLIDATED Lauri Billy MD - 08/08/2024 EXAMINATION: 5 XRAY VIEWS OF THE LEFT RIBS WITH FRONTAL XRAY VIEW OF THE CHEST 08/08/2024 1:42 pm COMPARISON: 03/17/2024 HISTORY: ORDERING SYSTEM PROVIDED HISTORY: fall/injury TECHNOLOGIST PROVIDED HISTORY: fall/injury FINDINGS: Chest: Heart size stable. No acute airspace disease. No pneumothorax. No pleural effusion. No pulmonary vascular congestion or edema. Left ribs: No fracture. No destructive bony abnormality. IMPRESSION: No acute abnormalities seen in the chest or left ribs [facility] Radiology Study observation (narrative) [facility] [email or web address] XR Ribs - left Views and [place] st PAOrdered By: Lauri Billy on 08-08-2024 [facility] [email or web address] Work Phone: CBC with Auto Differentialon 08-05-2024 Basophils (Bld) [#/Vol] 0.04 10*3/uL [facility] Basophils/100 WBC (Bld) 1 % 0 - 2 % [facility] Eosinophils (Bld) [#/Vol] 0.07 10*3/uL [facility] Eosinophils/100 WBC (Bld) 1 % 1 - 4 % [facility] [email or web address] Erythrocyte distribution width (RBC) [Ratio] 12.4 % 11.8 - 14.4 % [facility] Hematocrit (Bld) [Volume fraction] 41.8 % 40.7 - 50.3 % [facility] Hemoglobin (Bld) [Mass/Vol] 14.1 g/dL 13.0 - 17.0 g/dL [facility] Immature granulocytes (Bld) [#/Vol] 0.03 10*3/uL [facility] Immature granulocytes/100 WBC (Bld) 0 % 0 [facility] Lymphocytes/100 WBC (Bld) 30 % 24 - 43 % [facility] Lymphocytes/100 WBC (Bld) 2.68 % [facility] MCH (RBC) [Entitic mass] 28.8 pg 25.2 - 33.5 pg [facility] MCHC (RBC) [Mass/Vol] 33.7 g/dL 28.4 - 34.8 g/dL [facility] MCV (RBC) [Entitic vol] 85.5 fL 82.6 - 102.9 fL [facility] Monocytes/100 WBC (Bld) 8 % 3 - 12 % [facility] Monocytes/100 WBC (Bld) 0.67 % [facility] Neutrophils/100 WBC (Bld) 60 % 36 - 65 % [facility] Nucleated RBC/100 WBC (Bld) [Ratio] 0.0 % 0.0 per 100 WBC [facility] Platelet mean volume (Bld) [Entitic vol] 9.1 fL 8.1 - 13.5 fL [facility] Platelets (Bld) [#/Vol] 283 10*3/uL [facility] RBC (Bld) [#/Vol] 4.89 10*6/uL 4.21 - 5.7 7 m/uL [facility] Segmented neutrophils/100 WBC (Bld) 5.39 % [facility] WBC other (Bld) [#/Vol] 8.9 [facility] CBC with Diffon 08-05-2024 Abs. Basophil 0.04 k/uL Normal 0.00-0.20 [facility] Comment on above: Performed By: #### Fantasma STALEY UAX #### [facility] [address] [place] [address] Honing Job Setter: Ziggy Hilario MD Abs.Imm.Granulocyte 0.03 k/uL Normal 0.00-0.30 [facility] Comment on above: Performed By: #### Fantasma STALEY UAX #### [facility] [address] [place] [address] [place], [place] [id number] Honing Job Setter: Ziggy Hilario MD Abs.Neutrophil (Seg) 5.39 k/uL Normal 1.50-8.10 [facility] Comment on above: Performed By: #### U REBEKA, UAX #### [facility] [address] [place] [address] Honing Job Setter: Ziggy Hilario MD Basophils/100 WBC (Bld) 1 % Normal 0-2 [facility] Comment on above: Performed By: #### U CASSYO, UAX #### [facility] [address] [place], [place] [id number] Honing Job Setter: Ziggy Hilario MD Eosinophils (Bld) [#/Vol] 0.07 10*3/uL Normal 0.00-0.44 [facility] Comment on above: Performed By: #### U REBEKA, UAX #### [facility] [address] [place] [address] [place] [address] Honing Job Setter: Ziggy Hilario MD Eosinophils/100 WBC (Bld) 1 % Normal 1-4 [facility] Comment on above: Performed By: #### U REBEKA, UAX #### [facility] [address] [place], [place] [id number] Honing Job Setter: Ziggy Hilario MD Erythrocyte distribution width (RBC) [Ratio] 12.4 % Normal 11.8-14.4 [facility] Comment on above: Performed By: #### U REBEKA, UAX #### [address] [place], [place] [id number] Honing Job Setter: Ziggy Hilario MD Hematocrit (Bld) [Volume fraction] 41.8 % Normal 40.7-50.3 [facility] Comment on above: Performed By: #### Fantasma STALEY UAX #### [address] [place], [place] [id number] Honing Job Setter: Ziggy Hilario MD Hemoglobin (Bld) [Mass/Vol] 14.1 g/dL Normal 13.0-17.0 [facility] Comment on above: Performed By: #### U REBEKA, UAX #### [address] [place], [place] [id number] Honing Job Setter: Ziggy Hilario MD Immature granulocytes/100 WBC (Bld) 0 % Normal 0 [facility] Comment on above: Performed By: #### U REBEKA, UAX #### [address] [place] [address] Honing Job Setter: Ziggy Hilario MD Lymphocytes (Bld) [#/Vol] 2.68 10*3/uL Normal 1.10-3.70 [facility] Comment on above: Performed By: #### U CASSYO, UAX #### [facility] [address] [place], [place] [address] Honing Job Setter: Ziggy Hilario MD Lymphocytes/100 WBC (Bld) 30 % Normal 24-43 [facility] Comment on above: Performed By: #### U CASSYO, UAX #### [facility] [address] [place], [facility] Honing Job Setter: Ziggy Hilario MD MCH (RBC) [Entitic mass] 28.8 pg Normal 25.2-33.5 [facility] Comment on above: Performed By: #### U REBEKA, UAX #### [facility] [address] [place], [facility] Honing Job Setter: Ziggy Hilario MD MCHC (RBC) [Mass/Vol] 33.7 g/dL Normal 28.4-34.8 [facility] Comment on above: Performed By: #### U CASSYO, UAX #### [facility] [address] [place], [facility] Honing Job Setter: Ziggy Hilario MD MCV (RBC) [Entitic vol] 85.5 fL Normal 82.6-102.9 [facility] Comment on above: Performed By: #### U REBEKA UAX #### [facility] [address] [place], [facility] Honing Job Setter: Ziggy Hilario MD Monocytes (Bld) [#/Vol] 0.67 10*3/uL Normal 0.10-1.20 [facility] Comment on above: Performed By: #### U CASSYO, UAX #### [facility] [address] [place] [address] Honing Job Setter: Ziggy Hilario MD Monocytes/100 WBC (Bld) 8 % Normal 3-12 [facility] Comment on above: Performed By: #### U MICAO, UAX #### [facility] [address] [place], [place] [phone] Honing Job Setter: Ziggy Hilario MD Neutrophil (Seg) 60 % Normal 36-65 [facility] Comment on above: Performed By: #### U MICAO, UAX #### [facility] [address] [place], [place] [id number] Honing Job Setter: Ziggy Hilario MD NRBC Automated 0.0 per [address] [facility] Comment on above: Performed By: #### U MICAO, UAX #### [address] [place], [place] [id number] Honing Job Setter: Ziggy Hilario MD Platelet mean volume (Bld) [Entitic vol] 9.1 fL Normal 8.1-13.5 [facility] Comment on above: Performed By: #### U CASSYO, UAX #### [address] [place], [place] [id number] Honing Job Setter: Ziggy Hilario MD Platelets (Bld) [#/Vol] 283 10*3/uL Normal 138-453 [facility] Comment on above: Performed By: #### U MICAO, UAX #### [address] [place], [place] [id number] Honing Job Setter: Ziggy Hilario MD RBC (Bld) [#/Vol] 4.89 10*6/uL Normal 4.21-5.77 [facility] Comment on above: Performed By: #### U MICAO, UAX #### [address] [place] [address] Honing Job Setter: Ziggy Hilario MD WBC (Bld) [#/Vol] 8.9 10*3/uL Normal 3.5-11.3 [facility] Comment on above: Performed By: #### U MICAO, UAX #### [facility] [address] [place], [place] [id number] Honing Job Setter: Ziggy Hilario MD CNPNon 08-05-2024 CNPN Normal [facility] Metabolic Profon 2023 Albumin [Mass/Vol] 4.5 g/dL Normal 3.5-5.2 [facility] Comment on above: Performed By: #### U MICAO, UAX #### [facility] [address] [place], [place] [phone] Honing Job Setter: Ziggy Hilario MD Albumin/Glob Ratio 1.8 Normal 1.0-2.5 [facility] Comment on above: Performed By: #### U MICAO, UAX #### [facility] [address] [place], [place] [phone] Honing Job Setter: Ziggy Hilario MD Alkaline Phos 100 U/L Normal 40-129 [facility] Comment on above: Performed By: #### U MICAO, UAX #### [facility] [address] [place], [place] [phone] Honing Job Setter: Ziggy Hilario MD ALT [Catalytic activity/Vol] 37 U/L Normal 10-50 [facility] Comment on above: Performed By: #### U MICAO, UAX #### [facility] [address] [place], [place] [phone] Honing Job Setter: Ziggy Hilario MD Anion gap [Moles/Vol] 12 mmol/L Normal 9-16 [facility] Comment on above: Performed By: #### U MICAO, UAX #### [facility] [address] [place], [place] [id number] Honing Job Setter: Ziggy Hilario MD AST [Catalytic activity/Vol] 29 U/L Normal 10-50 [facility] Comment on above: Performed By: #### U MICAO, UAX #### [facility] [address] [place], [place] [id number] Honing Job Setter: Ziggy Hilario MD Bilirubin [Mass/Vol] 0.3 mg/dL Normal 0.00-1.20 [facility] Comment on above: Performed By: #### U CASSYO, UAX #### [facility] [address] [place], [place] [id number] Honing Job Setter: Ziggy Hilario MD BUN/CRE Ratio 9 Normal 9-20 [facility] Comment on above: Performed By: #### U MICAO, UAX #### [facility] [address] [place], [place] 9[address]83 Honing Job Setter: Ziggy Hilario MD Calcium [Mass/Vol] 10.1 mg/dL Normal 8.6-10.4 [facility] Comment on above: Performed By: #### U CASSYO, UAX #### [facility] [address] [place], [place] [id number] Honing Job Setter: Ziggy Hilario MD Chloride [Moles/Vol] 100 mmol/L Normal 98-107 [facility] Comment on above: Performed By: #### U CASSYO, UAX #### [facility] [address] [place] [address] Dr. [place], [place] 7263383 Honing Job Setter: Ziggy Hilario MD CO2 [Moles/Vol] 26 mmol/L Normal 20-31 [facility] Comment on above: Performed By: #### U MICAO, UAX #### [facility] [address] [place], [place] [id number] Honing Job Setter: Ziggy Hilario MD Creatinine [Mass/Vol] 1.1 mg/dL Normal 0.70-1.20 [facility] Comment on above: Performed By: #### U MICAO, UAX #### [facility] [address] [place], [place] [id number] Honing Job Setter: Ziggy Hilario MD GFR/1.73 sq M.predicted among non-blacks MDRD (S/P/Bld) [Vol rate/Area] 76 mL/min/{1.73_m2} Normal >60 [facility] Comment on above: Result Comment: These results are not intended for use in patients <18 years of age. eGFR results are calculated without a race factor using the 2020 CKD-EPI equation. Careful clinical correlation is recommended, particularly when comparing to results calculated using previous equations. The CKD-EPI equation is less accurate in patients with extremes of muscle mass, extra-renal metabolism of creatine, excessive creatine ingestion, or following therapy that affects renal tubular secretion. Performed By: #### U CASSYO, UAX #### [facility] [address] [place] [address] [place] [address] Honing Job Setter: Ziggy Hilario MD Glucose [Mass/Vol] 100 mg/dL High 74-99 [facility] Comment on above: Performed By: #### Fantasma STALEY, UAX #### [facility] [address] [place] [address] [place] [address] Honing Job Setter: Ziggy Hilario MD Potassium [Moles/Vol] 4.1 mmol/L Normal 3.7-5.3 [facility] Comment on above: Performed By: #### U REBEKA UAX #### [address] [place] [address] Honing Job Setter: Ziggy Hilario MD Protein [Mass/Vol] 7.0 g/dL Normal 6.6-8.7 [facility] Comment on above: Performed By: #### U CASSYO, UAX #### [facility] [address] [place] [address] [place] [address] Honing Job Setter: Ziggy Hilario MD Sodium [Moles/Vol] 138 mmol/L Normal 136-145 [facility] Comment on above: Performed By: #### U CASSYO, UAX #### [facility] [address] [place] [address] [place] [address] Honing Job Setter: Ziggy Hilario MD Urea nitrogen [Mass/Vol] 10 mg/dL Normal 6-20 [facility] Comment on above: Performed By: #### U MICAO, UAX #### [facility] [address] [place] [address] Honing Job Setter: Ziggy Hilario MD [facility] Metabolic Pane [facility] 08-05-2024 Albumin [Mass/Vol] 4.5 g/dL 3.5 - 5.2 g/dL [facility] Albumin/Globulin [Mass ratio] 1.8 {ratio} 1.0 - 2.5 [facility] ALP [Catalytic activity/Vol] 100 U/L 40 - 129 U/L [facility] ALT [Catalytic activity/Vol] 37 U/L 10 - 50 U/L [facility] Anion gap [Moles/Vol] 12 mmol/L 9 - 16 mmol/L [facility] AST [Catalytic activity/Vol] 29 U/L 10 - 50 U/L [facility] Bilirubin [Mass/Vol] 0.3 mg/dL 0.00 - 1.20 mg/dL [facility] Calcium [Mass/Vol] 10.1 mg/dL 8.6 - 10. 4 mg/dL [facility] Chloride [Moles/Vol] 100 mmol/L 98 - 10 7 mmol/L [facility] CO2 [Moles/Vol] 26 mmol/L 20 - 31 mmol/L [facility] Creatinine [Mass/Vol] 1.1 mg/dL 0.70 - 1.20 mg/dL [facility] Est, Glom Filt Rate 76 - PINF [facility] Comment on above: These results are not intended for use in patients <18 years of age. eGFR results are calculated without a race factor using the 2020 CKD-EPI equation. Careful clinical correlation is recommended, particularly when comparing to results calculated using previous equations. The CKD-EPI equation is less accurate in patients with extremes of muscle mass, extra-renal metabolism of creatine, excessive creatine ingestion, or following therapy that affects renal tubular secretion. Glucose [Mass/Vol] 100 mg/dL High 74 - 99 mg/dL [facility] Potassium [Moles/Vol] 4.1 mmol/L 3.7 - 5.3 mmol/L [facility] Protein [Mass/Vol] 7.0 g/dL 6.6 - 8.7 g/dL [facility] Sodium [Moles/Vol] 138 mmol/L 136 - 145 mmol/L [facility] Urea nitrogen [Mass/Vol] 10 mg/dL 6 - 20 mg/dL [facility] Urea nitrogen/Creatinine [Mass ratio] 9 mg/mg 9 - 20 [facility] Lactic Acidon 08-05-2024 Lactate (BldV) [Moles/Vol] 1.2 mmol/L 0.5 - 2.2 mmol/L [facility] Lactate [Moles/Vol] 1.2 mmol/L Normal 0.5-2.2 [facility] Comment on above: Performed By: #### U REBEKA, UAX #### [facility] [address] [place] [address] Honing Job Setter: Ziggy Hilario MD Lipaseon 08-05-2024 Lipase [Catalytic activity/Vol] 101 U/L High 13 - 60 U/L [facility] Lipase [Catalytic activity/Vol] 101 U/L High 13-60 [facility] Comment on above: Performed By: #### U REBEKA, UAX #### [facility] [address] [place] [address] Honing Job Setter: Ziggy Hilario MD No Panel Informationon 08-05 Interpretation and review of laboratory results Abnormal [facility] CNPNon 07-30-2024 CNPN Normal [facility] ANES POSTPROC EVALon 024 ANES POSTPROC EVAL Normal [facility] ANES PRE-OPon 07-28-2024 ANES PRE-OP Normal [facility] EGD Study observation Narrat iveon 07-28-2024 [facility] Radiology Study observation (narrative) [facility] GLUCOSE, BLOOD (POC)on 07-28 Glucose [Mass/Vol] 101 mg/dL Abnormal 74 - 99 mg/dL [facility] Comment on above: Location:[facility], [address] [place] [address], [facility] The Accu-Chek Inform II glucose meter has not been approved for testing on patients receiving intensive medical intervention or therapy and results from this point of care glucose test should not be used for patient management decisions in these cases. Inaccurate results may also occur from other interfering factors, such as N-acetylcysteine (blood concentrations of greater than 5mg/dL), galactose, extremes of hematocrit (<10 or >65), or high doses of ascorbic acid (vitamin C) greater than 3mg/dL. Consider alternate testing mechanisms (e.g. core lab, blood gas instrument) in the above situations. Interpretation and review of laboratory results Abnormal [facility] Glucose [Mass/Vol] 110 mg/dL Abnormal 74 - 99 mg/dL [facility] Comment on above: Location:[place] [address] The Accu-Chek Inform II glucose meter has not been approved for testing on patients receiving intensive medical intervention or therapy and results from this point of care glucose test should not be used for patient management decisions in these cases. Inaccurate results may also occur from other interfering factors, such as N-acetylcysteine (blood concentrations of greater than 5mg/dL), galactose, extremes of hematocrit (<10 or >65), or high doses of ascorbic acid (vitamin C) greater than 3mg/dL. Consider alternate testing mechanisms (e.g. core lab, blood gas instrument) in the above situations. Interpretation and review of laboratory results Abnormal [facility] NURSING PROGon 07-28-2024 NURSING PROG Normal [facility] NURSING PROG Normal [facility] Upper EUSon 07-28-2024 Upper EUS Normal [facility] CNPNon 07-24-2024 CNPN Normal [facility] CNOVon 07-22-2024 CNOV Normal [facility] Cancer Ag19-9 SerPl-aCncon 1 Cancer Ag 19-9 Qn 4.0 [arb'U]/mL Normal <36.0 [facility] Comment on above: Order Comment: Speci men Type: BLOOD SPECIMENOrdering Facility: [facility] Address: [address] [place] [address] Result Comment: [facility] er antigen 19-9 test is used as an aid in monitoring response to treatment or recurrence in patients with established pancreatic, hepatobiliary, or gastrointestinal malignancies. Clinical correlation is required.The CA 19-9 Antigen test was performed using the Manny Dashwire Unicel DXI paramagnetic particle chemiluminescent immunoassay method. Results obtained with different assay methods or kits cannot be used interchangeably. Performed By: #### 2 4108-3 ####[facility] [id number] [place] [address] [place] PANC ELASTASE, FECALon 07-22 ELASTASE INTERPRETATION Severe Exocrine Pancreatic Insufficiency Abnormal Normal [facility] Comment on above: Order Comment: Speci men Type: STOOL SPECIMENOrdering Facility: [facility] Address: [address] [place] [address] Performed By: #### P ANCEF ####[facility] [id number] [place] [address] [place] ELASTASE-1 CONCENTRATION 86 ug/g Low >=200 [facility] Comment on above: Order Comment: Speci men Type: STOOL SPECIMENOrdering Facility: [facility] Address: [address] [place] [address] Result Comment: Inte rpretation:<100 ug/g: Severe Exocrine Pancreatic [id number] ug/g: Mild to Moderate Exocrine Pancreatic Insufficiency>=200 ug/g: Normal Performed By: #### P ANCEF ####[facility] LABIA [id number] [place] [address] [place] CNPNon 07-21-2024 CNPN Normal [facility] CNCOon 07-17-2024 CNCO Letter Text Normal [facility] CNPNon 07-17-2024 CNPN Normal [facility] B12/Folate Panelon Cobalamin (Vitamin B12) [Mass/Vol] 979 pg/mL Normal 232-1245 [facility] Comment on above: Performed By: #### B 12FOL #### [address] [address] Honing Job Setter: Reno Duron MD Folic Acid >20.0 Normal 4.8-24.2 [facility] Comment on above: Performed By: #### B 12FOL #### [facility] [address] [place] [address] Honing Job Setter: Reno Duron MD Iron Binding Cap.on 07-15-20 24 % Fe Saturation 19 % Low 20-55 [facility] Comment on above: Performed By: #### T RIG, LDLDIR #### [address] [address] Honing Job Setter: Reno Duron MD Iron [Mass/Vol] 68 ug/dL Normal 61-157 [facility] Comment on above: Performed By: #### T RIG LDLDIR #### [address] [address] Honing Job Setter: Reno Duron MD Total Fe Binding Cap 351 ug/dL Normal 250-450 [facility] Comment on above: Performed By: #### T RIG LDLDIR #### [address] [address] Honing Job Setter: Reno Duron MD Unbound Fe Bind Cap 283 ug/dL Normal 112-347 [facility] Comment on above: Performed By: #### T RIG LDLDIR #### [place] [id number] [place] [address] Honing Job Setter: Reno Duron MD PSA, Screeningon 07-15-2024 Prostatic Spec. Ag 1.80 ng/mL Normal 0.00-4.00 [facility] Comment on above: Result Comment: The Gwyn ECLIA assay is used. Results obtained with different assay methods cannot be used interchangeably. Performed By: #### U LAUREL STALEY #### [facility] [address] [place] [address] Honing Job Setter: Ziggy Hilario MD Vitamin D 25 OHon 07-15-2024 Vitamin D 25 [place] >120.0 High 30.0-100.0 [facility] Comment on above: Result Comment: Reference Range: Vitamin D status Range Deficiency <20 ng/mL Mild Deficiency 20-30 ng/mL Sufficiency 30-100 ng/mL Toxicity >100 ng/mL Performed By: #### T RIG, LDLDIR #### [facility] [address] [place], [place] [id number] Honing Job Setter: Reno Duron MD TSH With Reflex Ft4on 2023 TSH Qn 0.85 m[IU]/L [facility] TSH w/reflex to FT4on 2023 Thyroid Stim. Horm. 0.85 uIU/mL Normal 0.27-4.20 [facility] Comment on above: Performed By: #### T RIG, LDLDIR #### [facility] [address], [place] [id number] Honing Job Setter: Reno Duron MD 36on 07-08-2024 36 Pt called back in an d said that the lab told him that the results will be done in an hour and he would like Dr Rowan to call him with results and pt stated that he called Dr Davies and they told him that the results will go to Dr Aponte and he needs to call him with results please advise [facility] 36 Upon learning that p t follows with Dr. Davies for GI care, I called and informed him that Dr. Davies (who ordered the tests) is the one to go over the results with him. Pt indicated understanding and said he would call Dr. Davies immediately. [facility] 36 Patient called back looking for an update. I did inform patient that it does look like we just recently received results. Patient would like the doctor to call him with results from the biopsy. Please advise. [facility] Telephoneon 07-08-2024 Telephone [phone] Alin Light 1970 M Date Provider Department Center 07/08/2024 CHAI ABDALLA [facility] No family history on file [facility] 36on 07-03-[address] Aponte, This patient is very anxious to speak to you. Can I tell him when he can expect to hear from you? Ana Maria [facility] 36 Pt called in again regarding lab results. He said that her is scared that he has cancer. Advised pt that we have not gotten results back and they must be reviewed by the doctor before they can be discussed. Pt is seeing some of the test results that are resulted on mychart and he doesn't understand them. He also states the he took the antibiotic but ever since procedure he has been having diarrhea and nausea and just feels very sick. Pt also stated that he is having pancreatitis. He wants to know what can be done to help with that [facility] 36 Patient called to go over test results. Patient was informed that test results haven't come in yet and the doctor needs to review them once the results are in. Patient would like a call once the results are in. [facility] 36 Pt called in again i s very concerned and worried about biopsy results and would like to know if they are in . Advised pt they are still in process. Pt would like a call back as soon as possible [facility] 36on 07-02-2024 36 Patient called in, i s requesting a call to go over biopsy results once they've been reviewed. Confirmed patients phone number on file. [facility] Telephoneon 07-02-2024 Telephone [phone] Alin Light 1970 M Date Provider Department Center 07/02/2024 LUIS F BURRIS [facility] No family history on file [facility] HISTOLOGY - TISSUE EXAMon LAB AP CASE REPORT [facility] Comment on above: Result Comment: Surg ical Pathology Case: [id number] Authorizing Provider: Luis F Aponte MD Collected: 06/26/2024 6213 [facility] Received: 06/27/2024 0811 [facility] Endoscopy Pathologist: Maritza Box MD Specimens: A) - Small Intestine, Duodenum, duodenal bx r/o celiac B) - Distal Esophagus, distal esophagus 35 bx r/o dysplagia C) - Distal Esophagus, distal esophageal bx 33 r/o dysplagia Performed By: #### L [id number] ####[facility] ([facility] [employer] [facility])[address] [place] [address] LAB AP CLINICAL INFORMATION Order Diagnoses [facility] Comment on above: Result Comment: K86. 2 - Pancreatic cyst [ICD-10-CM] R93.5 - Abnormal CT of the abdomen [ICD-10-CM] Performed By: #### L [id number] ####[facility] ([employer] [facility] [employer])[address] [place] [address] LAB AP GROSS DESCRIPTION [facility] Comment on above: Result Comment: A. S mall Intestine, Duodenum. Received in formalin labeled Ernie[facility] [place], duodenal bx r/o celiac, are 5 pieces of clemente-pink, irregular mucosal tissue ranging from 0.2 cm to 0.4 cm in greatest dimension. The specimen is submitted in toto in 1 cassette. Jordan Styles, Pathologists' Financial Services Education Consultant Student B. Distal Esophagus. Received in formalin labeled [facility] [place], distal esophagus 35 bx r/o dysplagia, are 3 pieces of clemente-pink, irregular mucosal tissue ranging from 0.2 cm to 0.4 cm in greatest dimension. The specimen is submitted in toto in 1 cassette. Jordan Styles [employer]' [employer] Education Consultant Student C. Distal Esophagus. Received in formalin [facility] [place], distal esophageal bx 33 r/o dysplagia, are 2 pieces of clemente-pink, irregular mucosal tissue each measuring 0.3 cm in greatest dimension. The specimen is submitted in toto in 1 cassette. Jordan Styles, Pathologists' Financial Services Education Consultant Student Performed By: #### L [id number] ####[facility] ([employer] [facility] [employer])[address] [place] [address] LAB AP MICROSCOPIC DESCRIPTION Microscopic examination performed. [facility] Comment on above: Performed By: #### L [id number] ####[facility] ([employer] [facility] [employer])[address] [place] [address] LAB AP REPORT FINAL DIAGNOSIS NARRATIVE [facility] Comment on above: Result Comment: Angelika Ring uodenum, biopsy: - No significant pathologic findings in duodenal mucosa B. 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 male with history of acute recurrent pancreatitis of unclear etiology. The patient is status postcholecystectomy. His first attack of pancreatitis occurred about 7 years ago. He had an endoscopic ultrasound which revealed a questionable pancreatic cystic lesion at the tail of the pancreas. Most recent. CT scan of abdomen with pancreatic protocol revealed dilated pancreatic duct up to 1.3 cm at the tail of the pancreas. This was suspicious for intraductal papillary mucinous neoplasm. The patient is scheduled to have an endoscopic ultrasound to assess the pancreas. They can wait Past Medical History He has a past medical history of Asthma, Bipolar 1 disorder (CMS/HCC), Chronic pain disorder, Chronic pancreatitis (CMS/HCC), Diabetes mellitus (CMS/HCC), GERD (gastroesophageal reflux disease), Hypertension, Pancreatic cyst, and PTSD (post-traumatic stress disorder). Surgical History He has a past surgical history that includes Appendectomy; Other surgical history; Prostate surgery; Fixation Kyphoplasty; Other surgical history; Spinal cord stimulator implant; Colonoscopy; Upper gastrointestinal endoscopy; Cholecystectomy; Hip Arthroplasty (Right); Knee Arthroplasty (Right); and Hernia repair. Social History He reports that he has never smoked. He has never used smokeless tobacco. He reports that he does not currently use alcohol. He reports that he does not use drugs. Family History No family history on file. Allergies Codeine and Ondansetron Medications (Not in a hospital admission) Review of Systems Constitutional: Negative. Respiratory: Negative. Cardiovascular: Negative. Gastrointestinal: Positive for abdominal pain. Genitourinary: Negative. Skin: Negative. Last Recorded Vitals Visit Vitals BP 127/81 Pulse 74 Temp 36.7 ???C (98.1 ???F) (Tympanic) Resp 18 Ht 1.778 m (5' 10 ) Wt 96.8 kg (213 lb 6.5 oz) SpO2 98% BMI 30.62 kg/m??? Smoking Status Never BSA 2.19 m??? Physical Exam HEENT: Anicteric sclera, conjunctiva Chest: Unremarkable Heart: Unremarkable Abdomen: Soft, no tenderness Lower extremities: No edema Relevant Lab Results No results found for: NA , K , CL , CO2 , BUN , CREATININE , GLUCOSE , CALCIUM , ANIONGAP , EGFR , BCR Relevant Imaging Results No image results found. Assessment/Plan Alin Light is a 53 y.o. male with history of acute recurrent pancreatitis of unclear etiology. The patient is status postcholecystectomy. His first attack of pancreatitis occurred about 7 years ago. He had an endoscopic ultrasound which revealed a questionable pancreatic cystic lesion at the tail of the pancreas. Most recent. CT scan of abdomen with pancreatic protocol revealed dilated pancreatic duct up to 1.3 cm at the tail of the pancreas. This was suspicious for intraductal papillary mucinous neoplasm. The patient is scheduled to have an endoscopic ultrasound to assess the pancreas. Normal [facility] NON-PRINTING AGENT CYTOLOGY - CELLULAR EXAMon 06-26-2024 LAB AP CASE REPORT Normal [facility] Comment on above: Result Comment: Non- gynecologic Cytology Case: [id number] Authorizing Provider: Luis F Aponte MD Collected: 06/26/2024 1624 Ordering Location: [facility] Received: 06/27/2024 0910 [facility] Endoscopy Pathologist: Kalpana Ventura MD Specimen: Pancreas, Tail, pancreatic tail FNA Performed By: #### L [id number] ####[facility] (BEAKER)[address] [place] [address] LAB AP CLINICAL INFORMATION Order Diagnoses Normal [facility] Comment on above: Result Comment: K86. 2 - Pancreatic cyst [ICD-10-CM] R93.5 - Abnormal CT of the abdomen [ICD-10-CM] Performed By: #### L [id number] ####[facility] (BEAKER)[address] [place] [address] LAB AP DIAGNOSIS COMMENT [facility] Comment on above: Result Comment: A. T he specimen is scantly cellular. While no evidence of high grade dysplasia is identified, very few groups of cyst lining epithelium are present in the sample for evaluation. In addition, cyst fluid chemistries could not be performed. Clinical and endoscopic correlation is suggested. Performed By: #### L [id number] ####[facility] ([employer] [facility] [employer])[address] [place] [address] LAB AP GROSS DESCRIPTION 6 air-dried slides, 3 alcohol-fixed slides, 30 mL CytoLyt with clear, colorless fluid. [facility] Comment on above: Performed By: #### L [id number] ####[facility] ([employer] [facility] [employer])[address] [place] [address] LAB AP INTRAOPERATIVE CONSULTATION [facility] Comment on above: Result Comment: Catracho Carvajal. Rapid on-site evaluation was performed by Kalpana Ventura MD. The material examined during rapid on-site evaluation was deemed adequate for diagnosis. Pass #1: Adequate Pass #2: Adequate Pass #3: Defer *Only select material is examined during the on-site evaluation. Final diagnosis is pending the review of all material submitted.* Performed By: #### L [id number] ####[facility] ([employer] [facility])[address] [place] [address] LAB AP REPORT FINAL DIAGNOSIS NARRATIVE [facility] Comment on above: Result Comment: catracho Carvajal, EUS-guided fine needle aspiration: - Neoplastic mucinous cyst, favor an intraductal papillary mucinous neoplasm (IPMN). - No high grade dysplasia identified. - See comment. Performed By: #### L [id number] ####[facility] ([employer] [facility] [employer])[address] [place] [address] POCT GLUCOSE METER UNSOLICIT ED RESULTSon 06-26-2024 Glucose [Mass/Vol] 86 mg/dL Normal 70-105 [facility] Comment on above: Order Comment: Waive d Testing in the ED is performed under the ED CLIA certificate #[id number]. Result Comment: jenc [email or web address] Performed By: #### L [id number] ####[facility] (ANNI)[address] [place] [address] Prep for Procedureon 024 Prep for Procedure [id number] Alin Light 1970 M Date Provider Department Center 06/26/2024 LUIS F BURRIS [facility]OP [place] [facility] No family history on file Normal [facility] Telephoneon 06-10-2024 Telephone [phone] Alin Light 1970 M Date Provider Department [place] 06/10/2024 [facility] No family history on file Normal [facility] Telephoneon 05-30-2024 Telephone [phone] Alin Light 1970 M Date Provider Department [place] 05/30/2024 RM [facility] No family history on file Normal [facility] BASIC METABOLIC PANLon 05-24 Anion gap [Moles/Vol] 11 mmol/L Normal 5-15 [facility] Comment on above: Performed By: #### 7 18-7, PLTCT, 50895-1, 20642-5, BMP, 3040- 3, LIVR, 34014-5 #### [facility] ([id number]) [address], [address] [place] [address] Calcium [Mass/Vol] 9.0 mg/dL Normal 8.5-10.5 [facility] Comment on above: Performed By: #### 7 18-7, PLTCT, 35243-9, 41209-0, BMP, 3040- 3, LIVR, 72337-5 #### [facility] ([id number]) [address], [address] [place] [address] Chloride [Moles/Vol] 106 mmol/L Normal 98-109 [facility] Comment on above: Performed By: #### 7 18-7, PLTCT, 65183-3, 31134-1, BMP, 3040- 3, LIVR, 98822-0 #### [facility] ([id number]) [address], [address] [place] [address] CO2 [Moles/Vol] 25 mmol/L Normal 22-32 [facility] Comment on above: Performed By: #### 7 18-7, PLTCT, 75350-4, 62395-8, BMP, 3040- 3, LIVR, 98824-9 #### [facility] ([id number]) [address], [address] [place] [address] Creatinine [Mass/Vol] 1.23 mg/dL Normal 0.60-1.30 [facility] Comment on above: Result Comment: METH OD TRACEABLE TO IDMS STANDARD Performed By: #### 7 18-7, PLTCT, 00122-5, 02767-4, BMP, 3040-3, LIVR, 84169-7 #### [facility] ([id number]) [address], [address] [place] [address] GFR/1.73 sq M.predicted among non-blacks MDRD (S/P/Bld) [Vol rate/Area] 70 mL/min/{1.73_m2} Normal >59 [facility] Comment on above: Result Comment: Reported eGFR is based on the CKD-EPI 2020 equation that does not use a race coefficient. Performed By: #### 7 18-7, PLTCT, 68562-0, 11849-2, BMP, 3040-3, LIVR, 84361-1 #### [facility] ([id number]) [address], [address] [place] [address] Glucose [Mass/Vol] 114 mg/dL High 65-99 [facility] Comment on above: Performed By: #### 7 18-7, PLTCT, 83220-5, 59453-7, BMP, 3040- 3, LIVR, 52446-3 #### [facility] ([id number]) [address], [address] [place] [address] Potassium [Moles/Vol] 3.6 mmol/L Normal 3.5-5.0 [facility] Comment on above: Performed By: #### 7 18-7, PLTCT, 94790-0, 19980-6, BMP, 3040- 3, LIVR, 41876-2 #### [facility] ([id number]) [address], [address] [place] [address] Sodium [Moles/Vol] 142 mmol/L Normal 134-146 [facility] Comment on above: Performed By: #### 7 18-7, PLTCT, 06293-2, 57572-0, BMP, 3040- 3, LIVR, 43707-5 #### [facility] ([id number]) [address], [address] [place] [address] Urea nitrogen [Mass/Vol] 15 mg/dL Normal 5-23 [facility] Comment on above: Performed By: #### 7 18-7, PLTCT, 65218-5, 13860-2, BMP, 3040- 3, LIVR, 41570-7 #### [facility] ([id number]) [address], [address] [place] [address] CBC AND AUTO DIFFon 05-24-20 24 ABSOLUTE BASOPHIL 0.0 X10E9/L Normal 0.0-0.2 [facility] Comment on above: Performed By: #### 8 9579-7, CBCA #### [facility] ([id number]) [address], [address] [place] [address] ABSOLUTE NEUTROPHIL 4.2 X10E9/L Normal 1.5-6.6 [facility] Comment on above: Performed By: #### 8 9579-7, CBCA #### [facility] ([id number]) [address], [address] [place] [address] Basophils/100 WBC (Bld) 0.4 % Normal [facility] Comment on above: Performed By: #### 8 9579-7, CBCA #### [facility] ([id number]) [address] [address] [place] [address] Eosinophils (Bld) [#/Vol] 0.1 10*3/uL Normal 0.0-0.4 [facility] Comment on above: Performed By: #### 8 9579-7, CBCA #### [facility] ([id number]) [address] [address] Eosinophils/100 WBC (Bld) 1.1 % Normal [facility] Comment on above: Performed By: #### 8 9579-7, CBCA #### [facility] ([id number]) [address] [address] Erythrocyte distribution width (RBC) [Ratio] 12.5 % Normal 11.5-15.0 [facility] Comment on above: Performed By: #### 8 9579-7, CBCA #### [facility] ([id number]) [address] [address] Hematocrit (Bld) [Volume fraction] 36.9 % Low 39-49 [facility] Comment on above: Performed By: #### 8 9579-7, CBCA #### [facility] ([id number]) [address] [address] Hemoglobin (Bld) [Mass/Vol] 12.6 g/dL Low 13.0-17.0 [facility] Comment on above: Performed By: #### 8 9579-7, CBCA #### [facility] ([id number]) [address] [address] Lymphocytes (Bld) [#/Vol] 2.6 10*3/uL Normal 1.0-3.5 [facility] Comment on above: Performed By: #### 8 9579-7, CBCA #### [facility] ([id number]) [address], [address] [place] [address] Lymphocytes/100 WBC (Bld) 34.5 % Normal [facility] Comment on above: Performed By: #### 8 9579-7, CBCA #### [facility] ([id number]) [address] [place] [address] MCH (RBC) [Entitic mass] 28.9 pg Normal 27-34 [facility] Comment on above: Performed By: #### 8 9579-7, CBCA #### [facility] ([id number]) [address], [address] [place] [address] MCHC (RBC) [Mass/Vol] 34.2 g/dL Normal 32-36 [facility] Comment on above: Performed By: #### 8 9579-7, CBCA #### [facility] ([id number]) [address] [place] [address] MCV (RBC) [Entitic vol] 85 fL Normal 80-100 [facility] Comment on above: Performed By: #### 8 9579-7, CBCA #### [facility] ([id number]) [address], [address] [place] [address] Monocytes (Bld) [#/Vol] 0.7 10*3/uL Normal 0-0.9 [facility] Comment on above: Performed By: #### 8 9579-7, CBCA #### [facility] ([id number]) [address], [address] [place] [address] Monocytes/100 WBC (Bld) 9.4 % Normal [facility] Comment on above: Performed By: #### 8 9579-7, CBCA #### [facility] ([id number]) [address] [address] [place] [address] Neutrophils/100 WBC (Bld) 54.6 % Normal [facility] Comment on above: Performed By: #### 8 9579-7, CBCA #### [facility] ([id number]) [address] [address] [place] [address] Platelet mean volume (Bld) [Entitic vol] 8.8 fL Normal 7-12 [facility] Comment on above: Performed By: #### 8 9579-7, CBCA #### [facility] ([id number]) [address] [address] Platelets (Bld) [#/Vol] 216 10*3/uL Normal 150-450 [facility] Comment on above: Performed By: #### 8 9579-7, CBCA #### [facility] ([id number]) [address] [address] [place] [address] RBC COUNT 4.36 X10E12/L Normal 4.10-5.70 [facility] Comment on above: Performed By: #### 8 9579-7, CBCA #### [facility] ([id number]) [address] [address] WBC (Bld) [#/Vol] 7.7 10*3/uL Normal 4.0-11.0 [facility] Comment on above: Performed By: #### 8 9579-7, CBCA #### [facility] ([id number]) [address] [address] [place] [address] ED Clinical Summaryon 2023 ED Clinical Summary (Inserted Image. Mariajose ble to display) [address] [address] ED Clinical Summary Person Information Name: Alin Light Kristian Alexandrea/[facility] Age: 53 Years : 1970 Sex: Male PCP: Eliana Morales Marital Status: Phone: Race: White Ethnicity: Not or Language: Polish Visit Reason: Abdominal pain; abdominal pain Acuity: 3 Enc Type: Emergency Med Service: Emergency Medicine Arrival: 05/23/2024 16:46:05 Discharge: 05/24/2024 02:20:00 LOS: 000 09:34 Checkin: 05/23/2024 16:46:05 Checkout: 05/24/2024 02:20:00 Dispo Type: Transfer to [facility] Address: [address] [place] [id number] Provider Notes: History of Present Illness Patient is a 53 year old male with a history of chronic pancreatitis presenting to the ED with RUQ abdominal pain. Patient reports that his pain has been intermittent and sharp for the last 4 days. Patient states that his pain is in the same place that it usually is with his recurrent pancreatitis episodes. ?He has been nauseous by denies vomiting. Patient has been taking Tramadol at home for pain due to multiple chronic pain issues.?The patient follows GI for?his chronic pancreatitis and he is taking creon.??He had an?EUS done on 05/12?that showed a cystic lesion, and he was scheduled for a CT 05/27.? Patient has a history of?appendectomy, cholecystectomy and?hernia repair in the past. Review of Systems As reviewed in the HPI. All other systems reviewed are negative or normal. Physical Exam CONSTITUTIONAL: [well appearing in no acute distress] SKIN: [Warm, dry, and intact without rash] EYES: [extraocular movements are grossly intact, clear conjunctiva] HENT: [Normocephalic, atraumatic, moist mucus membranes] NECK: [no obvious swelling, normal range of motion] PULMONARY: [normal chest rise and fall, no respiratory distress or stridor CARDIOVASCULAR: [regular rate, distal extremities are warm and well perfused] GASTROINSTESTINAL: [epigastric tenderness,nondistended] GENITOURINARY: [deferred] NEUROLOGIC: [normal speech, moves all extremities] MUSCULOSKELETAL: [no gross deformities, atraumatic] PSYCHIATRIC: [normal mood and affect] Diagnosis: 1:History of pancreatitis; 2:Pancreatic duct dilated Problems No Problems Documented Smoking Status: Smoking Status Never (less than 100 in lifetime) Functional Status: Sensory Deficits: History of Falls: Mobility Assistance Prior to Admission: ADLs: Current Level of Assistance for Self-Care/Mobility: Cognitive Status: Allergies codeine (Hives) (Vomiting) Cats (Difficulty breathing at rest) Zofran (Hives) Laboratory or Other Results This Visit (last charted value for your 05/23/2024 visit) Hematology 05/23/2024 4:59 PM WBC: 9.4 x10 RBC: 4.65 x10 Neutro Auto: 68.9 % -- Normal range between ( 47.2 and 70.8 ) Lymph Auto: 22.3 % -- Normal range between ( 27.2 and 40.8 ) Frontier Auto: 7.6 % -- Normal range between ( 4.7 and 13.9 ) Eos Auto: 0.8 % -- Normal range between ( 0.0 and 6.1 ) Basophil Auto: 0.4 % -- Normal range between ( 0.0 and 1.2 ) Baso Absolute: 0.0 x10 MCV: 85.0 fL -- Normal range between ( 80.0 and 100.0 ) MCHC: 34.1 % -- Normal range between ( 31.0 and 37.0 ) Lymph Absolute: 2.1 x10 Hct: 39.5 % -- Normal range between ( 41.0 and 53.0 ) Frontier Absolute: 0.7 x10 MCH: 29.0 pg -- Normal range between ( 27.0 and 35.0 ) Neutro Absolute: 6.5 x10 Hgb: 13.5 g/dL -- Normal range between ( 13.5 and 17.5 ) Mean Platelet Volume: 7.4 fL -- Normal range between ( 6.7 and 10.6 ) Platelet: 265 x10 Eos Absolute: 0.1 x10 RDW: 12.4 % -- Normal range between ( 11.6 and 14.8 ) Urinalysis 05/23/2024 5:21 PM UA Color: Yellow UA Urobilinogen: Normal mg/dL UA Bili: Negative UA Ketones: Negative mg/dL UA Leukocyte Esterase: Negative UA Nitrite: Negative UA Glucose: Normal mg/dL UA Protein: Negative mg/dL UA Blood: Negative UA Spec Grav: 1.010 -- Normal range between ( 1.003 and 1.035 ) UA pH: 7.0 UA Clarity: Clear UA Source: Clean Catch UA WBC Quant: 0 /HPF -- Normal range between ( 0 and 5 ) UA RBC Quant: 0 /HPF -- Normal range between ( 0 and 5 ) Chemistry 05/23/2024 4:59 PM Creatinine Lvl: 1.28 mg/dL -- Normal range between ( 0.61 and 1.24 ) BUN: 16 mg/dL -- Normal range between ( 8 and 26 ) Glucose Lvl: 111 mg/dL -- Normal range between ( 70 and 99 ) Potassium Lvl: 4.0 mmol/L -- Normal range between ( 3.4 and 4.8 ) AST: 32 IU/L -- Normal range between ( 15 and 41 ) ALT: 41 IU/L -- Normal range between ( 17 and 63 ) Sodium Lvl: 137 mmol/L -- Normal range between ( 133 and 142 ) Lipase Lvl: 103 IU/L -- Normal range between ( 22 and 51 ) Calcium Lvl: 9.5 mg/dL -- Normal range between ( 8.5 and 10.3 ) Albumin Lvl: 4.5 g/dL -- Normal range between ( 3.2 and 4.9 ) Total Protein: 7.2 g/dL -- Normal range between ( 6.5 and 8.1 ) (more content not included)... Normal [facility] ED Note-Nursingon 05-24-2024 ED Note-Nursing this RN called repor t to [facility] at [facility]. care transferred via phone to [facility] and all her questions answered. pt going to room B759 Lisa Pittman Normal [facility] Glucose Glucometer (BldC) [M ass/Vol]on 05-24-2024 Glucose [Mass/Vol] 108 mg/dL High 65-99 [facility] Glucose [Mass/Vol] 115 mg/dL High 65-99 [facility] HEMOGLOBINon 05-24-2024 Hemoglobin (Bld) [Mass/Vol] 12.1 g/dL Low 13.0-17.0 [facility] Comment on above: Performed By: #### 7 18-7, PLTCT, 04127-8, 21840-3, BMP, 3040- 3, LIVR, 03510-5 #### [facility] ([id number]) [address], [address] [place] [address] LIPASEon 05-24-2024 Lipase [Catalytic activity/Vol] 63 U/L Normal 11-82 [facility] Comment on above: Performed By: #### 7 18-7, PLTCT, 76396-2, 21925-1, BMP, 3040- 3, LIVR, 03335-2 #### [facility] ([id number]) [address], [address] [place] [address] LIVER PANELon 05-24-2024 Albumin [Mass/Vol] 3.8 g/dL Normal 3.2-5.3 [facility] Comment on above: Performed By: #### 7 18-7, PLTCT, 72810-0, 87641-1, BMP, 3040- 3, LIVR, 78626-9 #### [facility] ([id number]) [address], [address] [place] [address] ALP [Catalytic activity/Vol] 74 U/L Normal 39-130 [facility] Comment on above: Performed By: #### 7 18-7, PLTCT, 33518-9, 02116-4, BMP, 3040- 3, LIVR, 59433-6 #### [facility] ([id number]) [address], [address] [place] [address] ALT [Catalytic activity/Vol] 30 U/L Normal 0-40 [facility] Comment on above: Performed By: #### 7 18-7, PLTCT, 12174-5, 98309-1, BMP, 3040- 3, LIVR, 47993-4 #### [facility] ([id number]) [address], [address] [place] [address] AST [Catalytic activity/Vol] 21 U/L Normal 0-41 [facility] Comment on above: Performed By: #### 7 18-7, PLTCT, 80920-2, 40462-4, BMP, 3040- 3, LIVR, 26011-0 #### [facility] ([id number]) [address], [address] [place] [address] Bilirubin [Mass/Vol] 0.3 mg/dL Normal 0.3-1.2 [facility] Comment on above: Performed By: #### 7 18-7, PLTCT, 39963-9, 91000-8, BMP, 3040- 3, LIVR, 17492-6 #### [facility] ([id number]) [address], [address] [place] [address] Bilirubin.direct [Mass/Vol] 0.0 mg/dL Normal 0.0-0.4 [facility] Comment on above: Performed By: #### 7 18-7, PLTCT, 62851-5, 11414-9, BMP, 3040- 3, LIVR, 16644-6 #### [facility] ([id number]) [address], [address] [place] [address] Protein [Mass/Vol] 6.0 g/dL Normal 6.0-8.0 [facility] Comment on above: Performed By: #### 7 18-7, PLTCT, 39609-1, 95032-3, BMP, 3040- 3, LIVR, 17381-3 #### [facility] ([id number]) [address], [address] [place] [address] MAGNESIUMon 05-24-2024 Magnesium [Mass/Vol] 1.8 mg/dL Normal 1.8-2.6 [facility] Comment on above: Performed By: #### 7 18-7, PLTCT, 73568-9, 72720-7, BMP, 3040- 3, LIVR, #### [facility] ([id number]) [address], [address] [place] [address] PLATELET COUNT AND MPVon Platelet mean volume (Bld) [Entitic vol] 7.7 fL Normal 7-12 [facility] Comment on above: Performed By: #### 7 18-7, PLTCT, 24582-2, 81909-7, BMP, 3040- 3, LIVR, #### [facility] ([id number]) [address], [address] [place] [address] Platelets (Bld) [#/Vol] 222 10*3/uL Normal 150-450 [facility] Comment on above: Performed By: #### 7 18-7, PLTCT, 56182-8, 45656-8, BMP, 3040- 3, LIVR, 77630-4 #### [facility] ([id number]) [address], [address] [place] [address] Troponin I.cardiac High sens itivity method [Mass/Vol]on 05-24-2024 1 HOUR TROP I, HIGH SENSITIVITY 4 ng/L Normal <21 [facility] Comment on above: Performed By: #### 8 9579-7, CBCA #### [facility] ([id number]) [address], [address] [address] TROPONIN I, HIGH SENSITIVITY 3 ng/L Normal <21 [facility] Comment on above: Performed By: #### 7 18-7, PLTCT, 68650-9, 47047-0, BMP, 3040- 3, LIVR, 72419-3 #### [facility] ([id number]) [address], [address] [place] [address] aPTT Coag (PPP) [Time]on aPTT Coag (Bld) [Time] 34 s Normal 26-37 [facility] Comment on above: Performed By: #### 7 18-7, PLTCT, 60861-0, 23796-1, BMP, 3040- 3, LIVR, 19962-4 #### [facility] ([id number]) [address] [place] [address] .UA Microscp Aon 05-23-2024 UA RBC Quant 0 /HPF Normal 0-5 [facility] Comment on above: Performed By: #### C OMP #### [facility] [address] [place] [address] UA WBC Quant 0 /HPF Normal 0-5 [facility] Comment on above: Performed By: #### C OMP #### [address] [address] .eGFRon 05-23-2024 GFR/1.73 sq M.predicted MDRD (S/P/Bld) [Vol rate/Area] mL/min/{1.73_m2} Normal >=60 [facility] Comment on above: Result Comment: [facility] have implemented the eGFR calculation approach that does not have a coefficient for race and that conforms to the NKF-ASN Task Force Recommendations. Stages of Chronic Kidney Disease GFR Stage 3a Mild to moderate loss of kidney function 59 to 45 Stage 3b Moderate to severe loss of kidney function 44 to 33 Stage 4 Severe loss of kidney function 29 to 15 Stage 5 Kidney failure Less than 15 GFR calculated using the CKD-Epi Creatinine Equation (2020): eGFR = 142 X min(SCr/?, 1)? X max(SCr /?, 1)-1.200 X 0.9938Age X 1.012 [if female] Abbreviations/Units: eGFR (estimated glomerular filtration rate) = mL/min/1.73 m2 SCr (standardized serum creatinine) = mg/dL ? = 0.7 (females) or 0.9 (males) ? = -0.241 (females) or -0.302 (males) min = indicates the minimum of SCr/? or 1 max = indicates the maximum of SCr/? or 1 Age = years Performed By: #### C OMP #### [address] [address] CBC w/ Diffon 05-23-2024 Erythrocyte distribution width (RBC) [Ratio] 12.4 % Normal 11.6-14.8 [facility] Comment on above: Performed By: #### C BC #### [address] [address] Hematocrit (Bld) [Volume fraction] 39.5 % Low 41.0-53.0 [facility] Comment on above: Performed By: #### C BC #### [place] [id number] Hemoglobin (Bld) [Mass/Vol] 13.5 g/dL Normal 13.5-17.5 [facility] Comment on above: Performed By: #### C BC #### [place] [id number] MCH (RBC) [Entitic mass] 29.0 pg Normal 27.0-35.0 [facility] Comment on above: Performed By: #### C BC #### [place] [id number] MCHC 34.1 % Normal 31.0-37.0 [facility] Comment on above: Performed By: #### C BC #### [place] [id number] MCV (RBC) [Entitic vol] 85.0 fL Normal 80.0-100.0 [facility] Comment on above: Performed By: #### C BC #### [place] [id number] Platelet 265 x10*3/mcL Normal 150-450 [facility] Comment on above: Performed By: #### C BC #### [place] [id number] Platelet mean volume (Bld) [Entitic vol] 7.4 fL Normal 6.7-10.6 [facility] Comment on above: Performed By: #### C BC #### [place] [id number] RBC 4.65 x10*6/mcL Normal 4.30-5.80 [facility] Comment on above: Performed By: #### C BC #### [address] [address] WBC 9.4 x10*3/mcL Normal 4.5-11.0 [facility] Comment on above: Performed By: #### C BC #### [address] [address] CMPon 05-23-2024 Albumin [Mass/Vol] 4.5 g/dL Normal 3.2-4.9 [facility] Comment on above: Performed By: #### C OMP #### [address] [address] Albumin/Globulin [Mass ratio] 1.7 {ratio} Normal 1.1-2.2 [facility] Comment on above: Performed By: #### C OMP #### [address] [address] Alk Phos 80 IU/L Normal 32-91 [facility] Comment on above: Performed By: #### C OMP #### [address] [address] ALT [Catalytic activity/Vol] 41 U/L Normal 17-63 [facility] Comment on above: Performed By: #### C OMP #### [address] [address] Anion gap [Moles/Vol] 11 mmol/L Normal 4-12 [facility] Comment on above: Performed By: #### C OMP #### [address] [address] AST [Catalytic activity/Vol] 32 U/L Normal 15-41 [facility] Comment on above: Performed By: #### C OMP #### [address] [address] Bili Total 0.6 mg/dL Normal 0.3-1.2 [facility] Comment on above: Performed By: #### C OMP #### [address] [place] [address] Calcium [Mass/Vol] 9.5 mg/dL Normal 8.5-10.3 [facility] Comment on above: Performed By: #### C OMP #### [address] [address] Chloride [Moles/Vol] 100 mmol/L Normal 98-110 [facility] Comment on above: Performed By: #### C OMP #### [address] [address] CO2 [Moles/Vol] 26 mmol/L Normal 22-32 [facility] Comment on above: Performed By: #### C OMP #### [address] [address] Creatinine [Mass/Vol] 1.28 mg/dL High 0.61-1.24 [facility] Comment on above: Performed By: #### C OMP #### [address] [address] Glucose [Mass/Vol] 111 mg/dL High 70-99 [facility] Comment on above: Performed By: #### C OMP #### [address] [address] Potassium [Moles/Vol] 4.0 mmol/L Normal 3.4-4.8 [facility] Comment on above: Performed By: #### C OMP #### [address] [address] Protein [Mass/Vol] 7.2 g/dL Normal 6.5-8.1 [facility] Comment on above: Performed By: #### C OMP #### [address] [address] Sodium [Moles/Vol] 137 mmol/L Normal 133-142 [facility] Comment on above: Performed By: #### C OMP #### [address] [address] Urea nitrogen [Mass/Vol] 16 mg/dL Normal 8-26 [facility] Comment on above: Performed By: #### C OMP #### [facility] [address] [place] [address] Urea nitrogen/Creatinine [Mass ratio] 12.5 mg/mg Normal 10.0-20.0 [facility] Comment on above: Performed By: #### C OMP #### [facility] [address] [place] [address] CT Abdomen Pelvis w/ IV Cont [facility] 05-23-2024 CT Abdomen Pelvis w/ IV Contrast EXAMINATION: CT Abdomen Pelvis w/ IV Contrast HISTORY: Other (please specify), pancreatic cyst? COMPARISON: CT abdomen and pelvis dated 07/21/2020 TECHNIQUE: Following uneventful administration of 100 mL Omnipaque 350 IV contrast, helical imaging of the abdomen and pelvis was performed. Multiplanar reformatted images are submitted. Dose reduction techniques were achieved by using: automated exposure control and/or adjustment of mA and /or kV according to patient size and/or use of iterative reconstruction technique. FINDINGS: Limited evaluation of the lung bases demonstrates no acute findings. Diffuse hepatic steatosis. The gallbladder is absent. Postcholecystectomy prominence of the common bile duct. Negative for acute splenic or adrenal abnormality. Diffuse pancreatic atrophy with diffuse dilation of the main pancreatic duct, most notable in the region of the pancreatic tail measuring up to 1.3 cm in diameter. Negative for discrete obstructing mass. Negative for peripancreatic stranding. Several subcentimeter left renal cysts are noted. No obstructing nephrolithiasis or hydronephrosis. Normal urinary bladder. Small fat-containing inguinal hernias. Moderate volume formed colonic stool. The appendix is absent. No bowel obstruction or bowel thickening. No free intra-abdominal air or fluid. Negative for pathologically enlarged lymph nodes in the abdomen or pelvis. Negative for acute superficial soft tissue abnormality. Degenerative changes of the osseous structures without acute bony findings. IMPRESSION: 1. Diffuse dilation of the main pancreatic duct, most conspicuous in the pancreatic tail measuring up to 1.3 cm. This dated pancreatic atrophy is noted. The differential would include a main duct intraductal papillary mucinous neoplasm, occult obstructing neoplasm, or extra vacuo dilation related to pancreatic atrophy. Negative for CT findings of acute pancreatitis. Recommend correlation with contrast-enhanced MRCP. 2. Diffuse hepatic steatosis. 3. Moderate volume formed colonic stool. Final Dictated by: Joel De Jesus MD Dictated DT/TM: 05.23.2024 8:15 pm Signed by: Joel De Jesus MD Signed (Electronic Signature): 05.23.2024 8:18 pm (If Report Is Signed, Electronically Signed in Other Vendor System) Normal [facility] Diff Autoon 05-23-2024 Baso Absolute 0.0 x10*3/mcL Normal 0.0-0.2 [facility] Comment on above: Performed By: #### . Automated Diff #### [address] [address] Basophils/100 WBC (Bld) 0.4 % Normal 0.0-1.2 [facility] Comment on above: Performed By: #### . Automated Diff #### [address] [address] Eos Absolute 0.1 x10*3/mcL Normal 0.0-0.4 [facility] Comment on above: Performed By: #### . Automated Diff #### [address] [address] Eosinophils/100 WBC (Bld) 0.8 % Normal 0.0-6.1 [facility] Comment on above: Performed By: #### . Automated Diff #### [address] [address] Lymph Absolute 2.1 x10*3/mcL Normal 1.0-4.8 [facility] Comment on above: Performed By: #### . Automated Diff #### [address] [address] Lymphocytes/100 WBC (Bld) 22.3 % Low 27.2-40.8 [facility] Comment on above: Performed By: #### . Automated Diff #### [address] [address] Frontier Absolute 0.7 x10*3/mcL Normal 0.3-1.1 [facility] Comment on above: Performed By: #### . Automated Diff #### [address] [address] Monocytes/100 WBC (Bld) 7.6 % Normal 4.7-13.9 [facility] Comment on above: Performed By: #### . Automated Diff #### [address] [address] Neutro Absolute 6.5 x10*3/mcL Normal 1.8-7.7 [facility] Comment on above: Performed By: #### . Automated Diff #### [address] [address] Neutro Auto 68.9 % Normal 47.2-70.8 [facility] Comment on above: Performed By: #### . Automated Diff #### [address] [address] ED Note-Nursingon 05-23-2024 ED Note-Nursing pt. requesting water . explained to patient that he is NPO until his CT result comes back in case of surgical emergency. pt. then asked for nausea medication and pain medication. Electronically signed by Leonard Sims 05/23/24 20:03 EDT Normal [facility] ED Note-Physicianon 05-23-20 ED Note-Physician Chief Complaint c/o RUQ pain, hx chronic pancreatitis. sees Joe. has a ct ordered for 05/27 History of Present Illness Patient is a 53 year old male with a history of chronic pancreatitis presenting to the ED with RUQ abdominal pain. Patient reports that his pain has been intermittent and sharp for the last 4 days. Patient states that his pain is in the same place that it usually is with his recurrent pancreatitis episodes. He has been nauseous by denies vomiting. Patient has been taking Tramadol at home for pain due to multiple chronic pain issues. The patient follows GI for his chronic pancreatitis and he is taking creon. He had an EUS done on 05/12 that showed a cystic lesion, and he was scheduled for a CT 05/27. Patient has a history of appendectomy, cholecystectomy and hernia repair in the past. Review of Systems As reviewed in the HPI. All other systems reviewed are negative or normal. Physical Exam CONSTITUTIONAL: [well appearing in no acute distress] SKIN: [Warm, dry, and intact without rash] EYES: [extraocular movements are grossly intact, clear conjunctiva] HENT: [Normocephalic, atraumatic, moist mucus membranes] NECK: [no obvious swelling, normal range of motion] PULMONARY: [normal chest rise and fall, no respiratory distress or stridor CARDIOVASCULAR: [regular rate, distal extremities are warm and well perfused] GASTROINSTESTINAL: [epigastric tenderness, nondistended] GENITOURINARY: [deferred] NEUROLOGIC: [normal speech, moves all extremities] MUSCULOSKELETAL: [no gross deformities, atraumatic] PSYCHIATRIC: [normal mood and affect] Vitals & Measurements T: 36.7 ?C (Oral) HR: 75 (Monitored) RR: 18 BP: 135/92 SpO2: 98% HT: 177.8 cm WT: 97.1 kg (Dosing) Additional Vitals No qualifying data available. Procedure No qualifying data available. ASA Documentation Medical Decision Making Mili Zhu scribing for and in the presence of Dr. Oneal. Scribe Attestation: The information in this document, created by the medical billing supervisor for me, accurately reflects the services I personally performed and the decisions made by me. This report has been created using voice recognition software. It may contain minor errors which are inherent in voice recognition technology. MEDICAL DECISION MAKING Number and Complexity of Problems Differential Diagnosis: _pancreatitis, biliary obstruction, MDM Data External documents reviewed: _ My EKG interpretation: _ My CT interpretation: _ My X-ray interpretation: _ My Ultrasound interpretation: _ Decision rules/scores evaluated: _ Discussed with: _ Decision rules/scores evaluated: _ ? HEART Score: Not Completed ? PERC Rule: _ ? NEXUS C-spine Criteria: _ ? Reno Ankle Rule: _ ? [place] Knee Rule: _ ? Wells Criteria for DVT: _ ? Wells Criteria for PE: _ Discussed with: _ Treatment and Disposition ED Course: 53-year-old male presenting with right upper quadrant/epigastric abdominal pain, history of chronic pancreatitis. Patient was overall well-appearing on exam. He did have mild tenderness palpation of the epigastric region. Patient's lipase is elevated to 103. Liver enzymes within normal limits. CT scan of the abdomen was concerning for pancreatic duct dilatation. Did discuss with on-call GI physician Dr. Olguin who recommended transfer for possible ERCP. Did discuss results with patient. Plan for transfer to [facility] for ERCP. Patient was excepted at [facility], awaiting bed. Shared decision making: _ Code status: _ Assessment/Plan 1. History of pancreatitis Ordered: amitriptyline, 50 mg, Oral, Tab, HS (at bedtime), First Dose: 05/24/24 21:00:00 EDT, Dispense From Location: [facility], 05/23/24 22:15:00 EDT amLODIPine, 2.5 mg, Oral, Tab, Daily, First Dose: 05/24/24 9:00:00 EDT, Dispense From Location: [facility], 05/23/24 22:12:00 EDT atorvastatin, 40 mg, Oral, Tab, Daily, First Dose: 05/24/24 9:00:00 EDT, Dispense From Location: [facility], 05/23/24 22:15:00 EDT clonazePAM, 1 mg, Oral, Tab, HS (at bedtime), First Dose: 05/23/24 22:15:00 EDT, Dispense From Location: [facility], 05/23/24 22:15:00 EDT clonazePAM, 0.5 mg, Oral, Tab, Daily, First Dose: 05/23/24 22:15:00 EDT, Dispense From Location: [facility], 05/23/24 22:15:00 EDT pancrelipase, 6 caps, Oral, Cap-DR, TID, PRN other (see comment), First Dose: 05/23/24 22:15:00 EDT, Dispense From Location: [facility], 05/23/24 22:15:00 EDT ziprasidone, 40 mg, Oral, Cap, HS (at bedtime), First Dose: 05/23/24 22:15:00 EDT, Dispense From Location: [facility], 05/23/24 22:15:00 EDT Complete Blood Count w/ Differential Comprehensive Metabolic Panel 2. Pancreatic duct dilated Ordered: amitriptyline, 50 mg, Oral, Tab, HS (at bedtime), First Dose: 05/24/24 21:00:00 EDT, Dispense From Location: [facility], 05/23/24 22:15:00 EDT amLODIPine, 2.5 mg, Oral, Tab, Daily, First Dose: 05/24/24 9:00:00 EDT, Dispense From Location: [facility], (more content not included)... Normal [facility] Lipaseon 05-23-2024 Lipase Lvl 103 IU/L High 22-51 [facility] Comment on above: Performed By: #### C OMP #### [address] [address] UA w Culture if Indon 2023 Color (U) Yellow Normal Yellow [facility] Comment on above: Performed By: #### U CI #### [address] [address] Ketones Ql (U) Negative Normal Negative [facility] Comment on above: Performed By: #### U CI #### [address] [address] UA Blood Negative Normal Negative [facility] Comment on above: Performed By: #### U CI #### [address] [address] UA Clarity Clear Normal Clear [facility] Comment on above: Performed By: #### U CI #### [address] [address] UA Glucose Normal Normal Negative [facility] Comment on above: Performed By: #### U CI #### [address] [address] UA Leukocyte Esterase Negative Normal Negative [facility] Comment on above: Performed By: #### U CI #### [address] [address] UA Nitrite Negative Normal Negative [facility] Comment on above: Performed By: #### U CI #### [address] [address] UA pH 7.0 Normal 4.5 - 7.8 [facility] Comment on above: Performed By: #### U CI #### [address] [address] UA Protein Negative Normal Negative [facility] Comment on above: Performed By: #### U CI #### [address] [address] UA Source Clean Catch Normal [facility] Comment on above: Performed By: #### U CI #### [address] [address] UA Spec Grav 1.010 Normal 1.003-1.035 [facility] Comment on above: Performed By: #### U CI #### [address] [address] UA Urobilinogen Normal Normal 0.2 - 1.0 [facility] Comment on above: Performed By: #### U CI #### [address] [address] Urobilinogen (U) [Mass/Vol] Negative Normal Negative [facility] Comment on above: Performed By: #### U CI #### [address] [address] [address] CERVICAL SPINE W CONTRAST on 04-27-2024 CT CERVICAL SPINE W CONTRAST EXAMINATION: CT OF THE CERVICAL SPINE WITH CONTRAST 04/23/2024 4:26 pm TECHNIQUE: CT of the cervical was performed with the administration of intravenous contrast. Multiplanar reformatted images are provided for review. Automated exposure control, iterative reconstruction, and/or weight based adjustment of the mA/kV was utilized to reduce the radiation dose to as low as reasonably achievable. COMPARISON: None. HISTORY: ORDERING SYSTEM PROVIDED HISTORY: Cervical spinal stenosis TECHNOLOGIST PROVIDED HISTORY: STAT Creatinine as needed:->Yes FINDINGS: BONES/ALIGNMENT: There is normal alignment of the spine. The vertebral body heights are maintained. No destructive osseous lesion is seen. DEGENERATIVE CHANGES: Moderate narrowing of the neural foramina bilaterally at C5-6. SOFT TISSUES: There is no prevertebral soft tissue swelling. IMPRESSION: No acute abnormality of the cervical spine. Interpreted by: Marvin Byrd MD Signed by: Marvin Byrd MD 04/27/[address] [facility] No Panel Informationon 04-26 Left wrist: 1. Mild osteoarthrosis. 2. No acute fracture or dislocation. Left 2nd digit: Possible nondisplaced fracture of the distal aspect of the distal phalanx 2nd digit. Thoracic spine: 1. Evidence of multilevel thoracic vertebroplasty in the midthoracic spine with probable multilevel remote chronic anterior wedging/compression deformities. 2. Thoracic spine spinal stimulator lead wires as above. Kyphosis of the thoracic spine. 3. [id number] degenerative changes in the thoracic spine. Lumbar spine: 1. Remote vertebroplasty and compression deformity of L3. 2. No acute vertebral body height loss in the lumbar spine. [facility] RIS CONSOLIDATED EXAMINATION: 3 XRAY VIEWS OF THE LEFT WRIST; THREE XRAY VIEWS OF THE LEFT FINGERS; 3 XRAY VIEWS OF THE LUMBAR SPINE; 4 XRAY VIEWS OF THE THORACIC SPINE 04/26/2024 12:06 pm COMPARISON: None. HISTORY: ORDERING SYSTEM PROVIDED HISTORY: fall TECHNOLOGIST PROVIDED HISTORY: fall 53-year-old male with history of fall FINDINGS: Left wrist: Mild degenerative changes of the triscaphe, 1st MCP and 1st CMC joints. Osseous alignment is normal. No marginal erosions are identified. No acute fracture or gross dislocation is seen. Scaphoid appears grossly intact. No significant soft tissue swelling is identified. Left 2nd digit: Possible nondisplaced fracture of the distal aspect of the distal phalanx 2nd digit. Soft tissue swelling of the 2nd digit. Remaining visualized osseous structures appear intact. Thoracic spine: Multilevel thoracic vertebroplasty in the midthoracic spine. Probable multilevel remote chronic anterior wedging/compression deformities in the thoracic spine. Thoracic spinal stimulator lead wires in the thoracic canal. Mild to moderate hypertrophic osteophyte spur formation in the thoracic spine. Kyphosis of the thoracic spine. Sternal closure device at the mid lower chest. Prior cholecystectomy. Pedicles symmetric in appearance. Moderate stool burden. Lumbar spine: Left-sided thoracic stimulator device with lead wires extending towards the thoracic spinal canal. Remote vertebroplasty and compression deformity of L3. Mild degenerative changes in the thoracic spine. Remaining vertebral body heights well maintained. Moderate stool burden. Pedicles symmetric in appearance. Psoas shadows symmetric in appearance. Prior cholecystectomy. Pelvic phleboliths. Possible radiation seeds in the prostate. Metallic radiopaque foreign body adjacent to the lateral right iliac bone. [facility] RIS Miguel Cordero MD - 04/26/2024 EXAMINATION: 3 XRAY VIEWS OF THE LEFT WRIST; THREE XRAY VIEWS OF THE LEFT FINGERS; 3 XRAY VIEWS OF THE LUMBAR SPINE; 4 XRAY VIEWS OF THE THORACIC SPINE 04/26/2024 12:06 pm COMPARISON: None. HISTORY: ORDERING SYSTEM PROVIDED HISTORY: fall TECHNOLOGIST PROVIDED HISTORY: fall 53-year-old male with history of fall FINDINGS: Left wrist: Mild degenerative changes of the triscaphe, 1st MCP and 1st CMC joints. Osseous alignment is normal. No marginal erosions are identified. No acute fracture or gross dislocation is seen. Scaphoid appears grossly intact. No significant soft tissue swelling is identified. Left 2nd digit: Possible nondisplaced fracture of the distal aspect of the distal phalanx 2nd digit. Soft tissue swelling of the 2nd digit. Remaining visualized osseous structures appear intact. Thoracic spine: Multilevel thoracic vertebroplasty in the midthoracic spine. Probable multilevel remote chronic anterior wedging/compression deformities in the thoracic spine. Thoracic spinal stimulator lead wires in the thoracic canal. Mild to moderate hypertrophic osteophyte spur formation in the thoracic spine. Kyphosis of the thoracic spine. Sternal closure device at the mid lower chest. Prior cholecystectomy. Pedicles symmetric in appearance. Moderate stool burden. Lumbar spine: Left-sided thoracic stimulator device with lead wires extending towards the thoracic spinal canal. Remote vertebroplasty and compression deformity of L3. Mild degenerative changes in the thoracic spine. Remaining vertebral body heights well maintained. Moderate stool burden. Pedicles symmetric in appearance. Psoas shadows symmetric in appearance. Prior cholecystectomy. Pelvic phleboliths. Possible radiation seeds in the prostate. Metallic radiopaque foreign body adjacent to the lateral right iliac bone. IMPRESSION: Left wrist: 1. Mild osteoarthrosis. 2. No acute fracture or dislocation. Left 2nd digit: Possible nondisplaced fracture of the distal aspect of the distal phalanx 2nd digit. Thoracic spine: 1. Evidence of multilevel thoracic vertebroplasty in the midthoracic spine with probable multilevel remote chronic anterior wedging/compression deformities. 2. Thoracic spine spinal stimulator lead wires as above. Kyphosis of the thoracic spine. 3. Hzce-mu-[id number] degenerative changes in the thoracic spine. Lumbar spine: 1. Remote vertebroplasty and compression deformity of L3. 2. No acute vertebral body height loss in the lumbar spine. [facility] No Panel InformationOrdered By: Miguel Jimenez on 04-26-2024 [facility] [employer] Work Phone: XR FINGER LEFT (MIN 2 VIEWS) on 04-26-2024 XR FINGER LEFT (MIN 2 VIEWS) EXAMINATION: 3 XRAY VIEWS OF THE LEFT WRIST; THREE XRAY VIEWS OF THE LEFT FINGERS; 3 XRAY VIEWS OF THE LUMBAR SPINE; 4 XRAY VIEWS OF THE THORACIC SPINE 04/26/2024 12:06 pm COMPARISON: None. HISTORY: ORDERING SYSTEM PROVIDED HISTORY: fall TECHNOLOGIST PROVIDED HISTORY: fall 53-year-old male with history of fall FINDINGS: Left wrist: Mild degenerative changes of the triscaphe, 1st MCP and 1st CMC joints. Osseous alignment is normal. No marginal erosions are identified. No acute fracture or gross dislocation is seen. Scaphoid appears grossly intact. No significant soft tissue swelling is identified. Left 2nd digit: Possible nondisplaced fracture of the distal aspect of the distal phalanx 2nd digit. Soft tissue swelling of the 2nd digit. Remaining visualized osseous structures appear intact. Thoracic spine: Multilevel thoracic vertebroplasty in the midthoracic spine. Probable multilevel remote chronic anterior wedging/compression deformities in the thoracic spine. Thoracic spinal stimulator lead wires in the thoracic canal. Mild to moderate hypertrophic osteophyte spur formation in the thoracic spine. Kyphosis of the thoracic spine. Sternal closure device at the mid lower chest. Prior cholecystectomy. Pedicles symmetric in appearance. Moderate stool burden. Lumbar spine: Left-sided thoracic stimulator device with lead wires extending towards the thoracic spinal canal. Remote vertebroplasty and compression deformity of L3. Mild degenerative changes in the thoracic spine. Remaining vertebral body heights well maintained. Moderate stool burden. Pedicles symmetric in appearance. Psoas shadows symmetric in appearance. Prior cholecystectomy. Pelvic phleboliths. Possible radiation seeds in the prostate. Metallic radiopaque foreign body adjacent to the lateral right iliac bone. IMPRESSION: Left wrist: 1. Mild osteoarthrosis. 2. No acute fracture or dislocation. Left 2nd digit: Possible nondisplaced fracture of the distal aspect of the distal phalanx 2nd digit. Thoracic spine: 1. Evidence of multilevel thoracic vertebroplasty in the midthoracic spine with probable multilevel remote chronic anterior wedging/compression deformities. 2. Thoracic spine spinal stimulator lead wires as above. Kyphosis of the thoracic spine. 3. Djon-xv-zjvjatbk degenerative changes in the thoracic spine. Lumbar spine: 1. Remote vertebroplasty and compression deformity of L3. 2. No acute vertebral body height loss in the lumbar spine. Interpreted by: Miguel Jimenez MD Signed by: Miguel Jimenez MD 04/26/[address] [facility] XR Finger - left 2 Viewson 0 04-26-2024 Radiology Study observation (narrative) [facility] XR LUMBAR SPINE (2-3 VIEWS)o n 04-26-2024 XR LUMBAR SPINE (2-3 VIEWS) EXAMINATION: 3 XRAY VIEWS OF THE LEFT WRIST; THREE XRAY VIEWS OF THE LEFT FINGERS; 3 XRAY VIEWS OF THE LUMBAR SPINE; 4 XRAY VIEWS OF THE THORACIC SPINE 04/26/2024 12:06 pm COMPARISON: None. HISTORY: ORDERING SYSTEM PROVIDED HISTORY: fall TECHNOLOGIST PROVIDED HISTORY: fall 53-year-old male with history of fall FINDINGS: Left wrist: Mild degenerative changes of the triscaphe, 1st MCP and 1st CMC joints. Osseous alignment is normal. No marginal erosions are identified. No acute fracture or gross dislocation is seen. Scaphoid appears grossly intact. No significant soft tissue swelling is identified. Left 2nd digit: Possible nondisplaced fracture of the distal aspect of the distal phalanx 2nd digit. Soft tissue swelling of the 2nd digit. Remaining visualized osseous structures appear intact. Thoracic spine: Multilevel thoracic vertebroplasty in the midthoracic spine. Probable multilevel remote chronic anterior wedging/compression deformities in the thoracic spine. Thoracic spinal stimulator lead wires in the thoracic canal. Mild to moderate hypertrophic osteophyte spur formation in the thoracic spine. Kyphosis of the thoracic spine. Sternal closure device at the mid lower chest. Prior cholecystectomy. Pedicles symmetric in appearance. Moderate stool burden. Lumbar spine: Left-sided thoracic stimulator device with lead wires extending towards the thoracic spinal canal. Remote vertebroplasty and compression deformity of L3. Mild degenerative changes in the thoracic spine. Remaining vertebral body heights well maintained. Moderate stool burden. Pedicles symmetric in appearance. Psoas shadows symmetric in appearance. Prior cholecystectomy. Pelvic phleboliths. Possible radiation seeds in the prostate. Metallic radiopaque foreign body adjacent to the lateral right iliac bone. IMPRESSION: Left wrist: 1. Mild osteoarthrosis. 2. No acute fracture or dislocation. Left 2nd digit: Possible nondisplaced fracture of the distal aspect of the distal phalanx 2nd digit. Thoracic spine: 1. Evidence of multilevel thoracic vertebroplasty in the midthoracic spine with probable multilevel remote chronic anterior wedging/compression deformities. 2. Thoracic spine spinal stimulator lead wires as above. Kyphosis of the thoracic spine. 3. Jwrc-lc-jwrzfgxj degenerative changes in the thoracic spine. Lumbar spine: 1. Remote vertebroplasty and compression deformity of L3. 2. No acute vertebral body height loss in the lumbar spine. Interpreted by: Miguel Jimenez MD Signed by: Miguel Jimenez MD 04/26/[address] [facility] XR Lumbar spine 2 or 3 Views on 04-26-2024 Radiology Study observation (narrative) [facility] XR THORACIC SPINE (2 VIEWS)o n 04-26-2024 XR THORACIC SPINE (2 VIEWS) EXAMINATION: 3 XRAY VIEWS OF THE LEFT WRIST; THREE XRAY VIEWS OF THE LEFT FINGERS; 3 XRAY VIEWS OF THE LUMBAR SPINE; 4 XRAY VIEWS OF THE THORACIC SPINE 04/26/2024 12:06 pm COMPARISON: None. HISTORY: ORDERING SYSTEM PROVIDED HISTORY: fall TECHNOLOGIST PROVIDED HISTORY: fall 53-year-old male with history of fall FINDINGS: Left wrist: Mild degenerative changes of the triscaphe, 1st MCP and 1st CMC joints. Osseous alignment is normal. No marginal erosions are identified. No acute fracture or gross dislocation is seen. Scaphoid appears grossly intact. No significant soft tissue swelling is identified. Left 2nd digit: Possible nondisplaced fracture of the distal aspect of the distal phalanx 2nd digit. Soft tissue swelling of the 2nd digit. Remaining visualized osseous structures appear intact. Thoracic spine: Multilevel thoracic vertebroplasty in the midthoracic spine. Probable multilevel remote chronic anterior wedging/compression deformities in the thoracic spine. Thoracic spinal stimulator lead wires in the thoracic canal. Mild to moderate hypertrophic osteophyte spur formation in the thoracic spine. Kyphosis of the thoracic spine. Sternal closure device at the mid lower chest. Prior cholecystectomy. Pedicles symmetric in appearance. Moderate stool burden. Lumbar spine: Left-sided thoracic stimulator device with lead wires extending towards the thoracic spinal canal. Remote vertebroplasty and compression deformity of L3. Mild degenerative changes in the thoracic spine. Remaining vertebral body heights well maintained. Moderate stool burden. Pedicles symmetric in appearance. Psoas shadows symmetric in appearance. Prior cholecystectomy. Pelvic phleboliths. Possible radiation seeds in the prostate. Metallic radiopaque foreign body adjacent to the lateral right iliac bone. IMPRESSION: Left wrist: 1. Mild osteoarthrosis. 2. No acute fracture or dislocation. Left 2nd digit: Possible nondisplaced fracture of the distal aspect of the distal phalanx 2nd digit. Thoracic spine: 1. Evidence of multilevel thoracic vertebroplasty in the midthoracic spine with probable multilevel remote chronic anterior wedging/compression deformities. 2. Thoracic spine spinal stimulator lead wires as above. Kyphosis of the thoracic spine. 3. Nlln-nl-oycipjgr degenerative changes in the thoracic spine. Lumbar spine: 1. Remote vertebroplasty and compression deformity of L3. 2. No acute vertebral body height loss in the lumbar spine. Interpreted by: Miguel Jimenez MD Signed by: Miguel Jimenez MD 04/26/[address] [facility] XR Thoracic spine 2 Viewson 04-26-2024 Radiology Study observation (narrative) [facility] XR WRIST LEFT (MIN 3 VIEWS)o n 04-26-2024 XR WRIST LEFT (MIN 3 VIEWS) EXAMINATION: 3 XRAY VIEWS OF THE LEFT WRIST; THREE XRAY VIEWS OF THE LEFT FINGERS; 3 XRAY VIEWS OF THE LUMBAR SPINE; 4 XRAY VIEWS OF THE THORACIC SPINE 04/26/2024 12:06 pm COMPARISON: None. HISTORY: ORDERING SYSTEM PROVIDED HISTORY: fall TECHNOLOGIST PROVIDED HISTORY: fall 53-year-old male with history of fall FINDINGS: Left wrist: Mild degenerative changes of the triscaphe, 1st MCP and 1st CMC joints. Osseous alignment is normal. No marginal erosions are identified. No acute fracture or gross dislocation is seen. Scaphoid appears grossly intact. No significant soft tissue swelling is identified. Left 2nd digit: Possible nondisplaced fracture of the distal aspect of the distal phalanx 2nd digit. Soft tissue swelling of the 2nd digit. Remaining visualized osseous structures appear intact. Thoracic spine: Multilevel thoracic vertebroplasty in the midthoracic spine. Probable multilevel remote chronic anterior wedging/compression deformities in the thoracic spine. Thoracic spinal stimulator lead wires in the thoracic canal. Mild to moderate hypertrophic osteophyte spur formation in the thoracic spine. Kyphosis of the thoracic spine. Sternal closure device at the mid lower chest. Prior cholecystectomy. Pedicles symmetric in appearance. Moderate stool burden. Lumbar spine: Left-sided thoracic stimulator device with lead wires extending towards the thoracic spinal canal. Remote vertebroplasty and compression deformity of L3. Mild degenerative changes in the thoracic spine. Remaining vertebral body heights well maintained. Moderate stool burden. Pedicles symmetric in appearance. Psoas shadows symmetric in appearance. Prior cholecystectomy. Pelvic phleboliths. Possible radiation seeds in the prostate. Metallic radiopaque foreign body adjacent to the lateral right iliac bone. IMPRESSION: Left wrist: 1. Mild osteoarthrosis. 2. No acute fracture or dislocation. Left 2nd digit: Possible nondisplaced fracture of the distal aspect of the distal phalanx 2nd digit. Thoracic spine: 1. Evidence of multilevel thoracic vertebroplasty in the midthoracic spine with probable multilevel remote chronic anterior wedging/compression deformities. 2. Thoracic spine spinal stimulator lead wires as above. Kyphosis of the thoracic spine. 3. Syfz-de-gifrcfyf degenerative changes in the thoracic spine. Lumbar spine: 1. Remote vertebroplasty and compression deformity of L3. 2. No acute vertebral body height loss in the lumbar spine. Interpreted by: Miguel Jimenez MD Signed by: Miguel Jimenez MD 04/26/[address] [facility] XR Wrist - left 3 Viewson Radiology Study observation (narrative) [facility] Creatinineon 04-23-2024 Creatinine [Mass/Vol] 1.1 mg/dL 0.7 - 1.2 mg/dL [facility] Est, Glom Filt Rate 80 - [facility] Comment on above: These results are not intended for use in patients <18 years of age. eGFR results are calculated without a race factor using the 2020 CKD-EPI equation. Careful clinical correlation is recommended, particularly when comparing to results calculated using previous equations. The CKD-EPI equation is less accurate in patients with extremes of muscle mass, extra-renal metabolism of creatine, excessive creatine ingestion, or following therapy that affects renal tubular secretion. [facility] Creatinine w/GFRon Creatinine [Mass/Vol] 1.1 mg/dL Normal 0.7-1.2 [facility] Comment on above: Performed By: #### T RIG LDLDIR #### [facility] [address] [place] [address] Honing Job Setter: Reno Duron MD GFR/1.73 sq M.predicted among non-blacks MDRD (S/P/Bld) [Vol rate/Area] 80 mL/min/{1.73_m2} Normal >60 [facility] Comment on above: Result Comment: These results are not intended for use in patients <18 years of age. eGFR results are calculated without a race factor using the 2020 CKD-EPI equation. Careful clinical correlation is recommended, particularly when comparing to results calculated using previous equations. The CKD-EPI equation is less accurate in patients with extremes of muscle mass, extra-renal metabolism of creatine, excessive creatine ingestion, or following therapy that affects renal tubular secretion. Performed By: #### T RIG LDLDIR #### [facility] [address], [place] [id number] Honing Job Setter: Reno Duron MD XR TOE LEFT (MIN 2 VIEWS)on 04-03-2024 XR TOE LEFT (MIN 2 VIEWS) EXAMINATION: 3 XRAY VIEWS OF THE LEFT 1st TOE 04/03/2024 12:12 pm COMPARISON: None. HISTORY: ORDERING SYSTEM PROVIDED HISTORY: Contusion of left great toe without damage to nail, sequela TECHNOLOGIST PROVIDED HISTORY: Specify which digit to image->First (Thumb/Great Toe) FINDINGS: There is no significant abnormality demonstrated. Specifically, there is no evidence of fracture. IMPRESSION: No fractures noted. Interpreted by: Ernie Gutiérrez MD Signed by: Ernie Gutiérrez MD 04/03/[address] [facility] XR TOE LEFT (MIN 2 VIEWS)on 04-02-2024 XR TOE LEFT (MIN 2 VIEWS) EXAMINATION: XRAY VIEWS OF THE LEFT 1st TOE 04/02/2024 11:49 am COMPARISON: None. HISTORY: ORDERING SYSTEM PROVIDED HISTORY: injury TECHNOLOGIST PROVIDED HISTORY: injury Specify which digit to image->First (Thumb/Great Toe) FINDINGS: There are no abnormalities noted. There is no evidence of fracture. IMPRESSION: No acute fracture or dislocation of the left 1st digit. Interpreted by: Ernie Gutiérrez MD Signed by: Ernie Gutiérrez MD 04/02/[address] [facility] Benzodiazepines Screen Ql (U )on 03-26-2024 Benzodiazepines Ql (U) Negative Normal NEG [facility] Comment on above: Result Comment: Leon odiazepines screening cut off value = 200 ng/mL This report is intended for use in clinical monitoring or management of patients. Performed By: #### 1 [id number] #### [facility] ([id number]) [address] [place] [address], [address] [place] [address] CCL GENERIC ORDERon 03-26-20 TEST NAME UQNTPP Normal [facility] Comment on above: Performed By: #### C GO #### [facility] ([id number]) [address] [place] [id number] TEST RESULT See Below Normal [facility] Comment on above: Result Comment: NOTE TEST RESULT FLAG UNIT REF.RANGE ----- Morphine Quant, Urine <10 ng/mL <10 Morphine is a metabolite of codeine and heroin. Oxymorphone Quant, Urine <5 ng/mL <5 Oxymorphone is a metabolite of oxycodone. Hydromorphone Quant, Urine <5 ng/mL <5 Hydromorphone is a metabolite of hydrocodone. Dihydrocodeine Quant, Urine <5 ng/mL <5 Codeine Quant, Urine <11 ng/mL <11 Amphetamine, Urine <5 ng/mL <5 Desmethyltramadol,Ur 4526 H ng/mL <20 O-Desmethyltramadol is a metabolite of tramadol and its presence indicates use of a tramadol containing drug (Ultram). Benzoylecognine,Ur Qnt <24 ng/mL <24 Benzoylecgonine is a metabolite of cocaine. Oxycodone Quant, Urine <10 ng/mL <10 Methamphetamine, Urine <8 ng/mL <8 6-Acetylmorphine Quant, Urine <5 ng/mL <5 6-BARBRA (6-monoacetylmorphine, also known as 6-acetylmorphine) is a unique metabolite of heroin. Presence of 6-BARBRA indicates use of heroin. 6-BARBRA is further metabolized to morphine and absence of 6-BARBRA does not rule out the use of heroin. Hydrocodone Quant, Urine <8 ng/mL <8 Hydrocodone is a metabolite of dihydrocodeine. Norfentanyl, Urine <6 ng/mL <6 Norfentanyl is a metabolite of fentanyl. Tramadol, Urine 5037 H ng/mL <25 Presence of tramadol indicates use of a tramadol containing drug (Ultram). Tramadol is metabolized to O-Desmethyltramadol. Norbuprenorphine, Ur <20 ng/mL <20 Norbuprenorphine is the primary active metabolite of buprenorphine. Cannabinoid, Urine <16 ng/mL <16 Tetrahydrocannabinol carboxylic acid (THCA) is a metabolite of ormkf-5-wxasimbdfesrotaxarhj which is the main active component of marijuana. Fentanyl, Urine <6 ng/mL <6 Buprenorphine, Ur <20 ng/mL <20 Methadone Urine <16 ng/mL <16 Methadone metabolite Urine <6 ng/mL <6 EDDP is a metabolite of methadone. Note See Below This test is for medical use only. This test was developed and its performance characteristics determined by [facility]'s [facility] Pathology and Laboratory [facility] [place] ([facility]). It has not been cleared or approved by the FDA. [facility] is regulated under CLIA as qualified to perform high-complexity testing. This test is used for clinical purposes. It should not be regarded as investigational or for research. Specimen Validity Quality See below Specimen quality results within acceptable limits Specimen Validity Creatinine 14.5 L mg/dL 20.0-300.0 Specimen Validity PH 7.2 4.5-8.0 Specimen Validity Specific [place] 1.005 1.003-1.035 Specimen Validity Oxidants <38 mg/L <200 Specimen Validity Nitrites <50 mg/L <500 Specimen Validity Chromate <10 mg/L <50 Test Performed By: [facility] [employer] [address] [place] [address] Tow Picker: Yakov Gurrola III, M.D. [place] #[id number] Performed By: #### C GO #### [facility] ([id number]) [address] [place] [id number] Laboratory comment Jacinto (Jodie rt)on 03-26-2024 UNLISTED LAB TEST Sent to reference lab [facility] Comment on above: Performed By: #### C GO #### [facility] ([id number]) [address] [place] [id number] Basic Metabolic Panelon 02-20 Anion gap [Moles/Vol] 11 mmol/L 9 - 17 mmol/L [facility] Calcium [Mass/Vol] 9.6 mg/dL 8.6 - 10. 4 mg/dL [facility] Chloride [Moles/Vol] 98 mmol/L 98 - 10 7 mmol/L [facility] CO2 [Moles/Vol] 26 mmol/L 20 - 31 mmol/L [facility] Creatinine [Mass/Vol] 1.1 mg/dL 0.7 - 1.2 mg/dL [facility] Est, Glom Filt Rate 80 - [facility] [employer] Comment on above: These results are not intended for use in patients <18 years of age. eGFR results are calculated without a race factor using the 2020 CKD-EPI equation. Careful clinical correlation is recommended, particularly when comparing to results calculated using previous equations. The CKD-EPI equation is less accurate in patients with extremes of muscle mass, extra-renal metabolism of creatine, excessive creatine ingestion, or following therapy that affects renal tubular secretion. Glucose [Mass/Vol] 132 mg/dL High 70 - 99 mg/dL [facility] Interpretation and review of laboratory results Abnormal [facility] Potassium [Moles/Vol] 4.1 mmol/L 3.7 - 5.3 mmol/L [facility] [employer] Sodium [Moles/Vol] 135 mmol/L 135 - 144 mmol/L [facility] Urea nitrogen [Mass/Vol] 10 mg/dL 6 - 20 mg/dL [facility] Urea nitrogen/Creatinine [Mass ratio] 9 mg/mg 9 - 20 [facility] Basic Metabolic Profon 03-17 Anion gap [Moles/Vol] 11 mmol/L Normal 9-17 [facility] Comment on above: Performed By: #### T RIG LDLDIR #### [facility] [address] [place] [address] Honing Job Setter: Reno Duron MD BUN/CRE Ratio 9 Normal 9-20 [facility] Comment on above: Performed By: #### T RIG LDLDIR #### [facility] [place] [address] Honing Job Setter: Reno Duron MD Calcium [Mass/Vol] 9.6 mg/dL Normal 8.6-10.4 [facility] Comment on above: Performed By: #### T RIG LDLDIR #### [facility] [address] [place] [address] Honing Job Setter: Reno Duron MD Chloride [Moles/Vol] 98 mmol/L Normal 98-107 [facility] Comment on above: Performed By: #### T KHUSHBU LDLDIR #### [address] [address] Honing Job Setter: Reno Duron MD CO2 [Moles/Vol] 26 mmol/L Normal 20-31 [facility] Comment on above: Performed By: #### T RIG LDLDIR #### [facility] [address] [place] [address] Honing Job Setter: Reno Duron MD Creatinine [Mass/Vol] 1.1 mg/dL Normal 0.7-1.2 [facility] Comment on above: Performed By: #### T RIG LDLDIR #### [address] [address] Honing Job Setter: Reno Duron MD GFR/1.73 sq M.predicted among non-blacks MDRD (S/P/Bld) [Vol rate/Area] 80 mL/min/{1.73_m2} Normal >60 [facility] Comment on above: Result Comment: These results are not intended for use in patients <18 years of age. eGFR results are calculated without a race factor using the 2020 CKD-EPI equation. Careful clinical correlation is recommended, particularly when comparing to results calculated using previous equations. The CKD-EPI equation is less accurate in patients with extremes of muscle mass, extra-renal metabolism of creatine, excessive creatine ingestion, or following therapy that affects renal tubular secretion. Performed By: #### T RIG LDLDIR #### [facility] [address] [place] [phone] Honing Job Setter: Reno Duron MD Glucose [Mass/Vol] 132 mg/dL High 70-99 [facility] Comment on above: Performed By: #### T RIG LDLDIR #### [facility] [address] [place] [address] Honing Job Setter: Reno Duron MD Potassium [Moles/Vol] 4.1 mmol/L Normal 3.7-5.3 [facility] Comment on above: Performed By: #### T RIG LDLDIR #### [facility] [address] [place] [phone] Honing Job Setter: Reno Duron MD Sodium [Moles/Vol] 135 mmol/L Normal 135-144 [facility] Comment on above: Performed By: #### T RIG LDLDIR #### [facility] [address] [place] [phone] Honing Job Setter: Reno Duron MD Urea nitrogen [Mass/Vol] 10 mg/dL Normal 6-20 [facility] Comment on above: Performed By: #### T RIG LDLDIR #### [facility] [address] [place] [phone] Honing Job Setter: Reno Duron MD Brain Natri. Peptideon 03-17 Pro-BNP <36 Normal <300 [facility] Comment on above: Result Comment: An age-independent cutoff point of 300 pg/ml has a 98% negative predictive value excluding acute heart failure. Performed By: #### T KHUSHBU LDLDIR #### [facility] [place] [address] Honing Job Setter: Reno Duron MD Brain Natriuretic Peptideon 03-17-2024 Natriuretic peptide B (Bld) [Mass/Vol] pg/mL NINF - 300 pg/mL [facility] [employer] Comment on above: An age-independent cutoff point of 300 pg/ml has a 98% negative predictive value excluding acute heart failure. [facility]ENTER[facility] CBC with Auto Differentialon 03-17-2024 Basophils (Bld) [#/Vol] 0.04 10*3/uL [facility] Immature granulocytes (Bld) [#/Vol] 0.07 10*3/uL [facility] Interpretation and review of laboratory results Abnormal [facility] Lymphocytes/100 WBC (Bld) 2.40 % [facility] [employer] Monocytes/100 WBC (Bld) 0.86 % [facility] Neutrophils/100 WBC (Bld) 60 % 36 - 65 % [facility] [employer] Nucleated RBC/100 WBC (Bld) [Ratio] 0.0 % 0.0 per 100 WBC [facility] [employer] Segmented neutrophils/100 WBC (Bld) 5.44 % [facility] [employer] WBC other (Bld) [#/Vol] 8.9 [facility] CBC with Diffon 03-17-2024 Basophils/100 WBC (Bld) 1 % Normal 0-2 [facility]ENTER[facility] [employer] Comment on above: Performed By: #### T KHUSHBU LDLDIR #### [facility] [address] [place], [place] [phone] Honing Job Setter: Reno Duron MD Eosinophils (Bld) [#/Vol] 0.05 10*3/uL Normal 0.00-0.44 [facility]ENTER[facility] [employer] Comment on above: Performed By: #### T KHUSHBU LDLDIR #### [employer] [facility] [place], [place] [phone] Honing Job Setter: Reno Duron MD Eosinophils/100 WBC (Bld) 1 % Normal 1-4 [facility]ENTERMediaCrossing Inc[facility] Comment on above: Performed By: #### T RIG LDLDIR #### [facility] [address] [place] [address] Honing Job Setter: Reno Duron MD Erythrocyte distribution width (RBC) [Ratio] 12.0 % Normal 11.8-14.4 [employer] [facility] Comment on above: Performed By: #### T RIG LDLDIR #### [facility] [address] [place] [address] Honing Job Setter: Reno Duron MD Hematocrit (Bld) [Volume fraction] 38.6 % Low 40.7-50.3 [employer] [facility]ENTERConstruction Software Technologies [facility] Comment on above: Performed By: #### T KHUSHBU LDLDIR #### [facility] [address] [place] [address] Honing Job Setter: Reno Duron MD Hemoglobin (Bld) [Mass/Vol] 12.8 g/dL Low 13.0-17.0 [employer] [facility] Comment on above: Performed By: #### T RIG LDLDIR #### [facility] [address] [place] [address] Honing Job Setter: Reno Duron MD Immature granulocytes/100 WBC (Bld) 1 % High 0 [facility]ENTERMediaCrossing Inc[facility] Comment on above: Performed By: #### T RIG LDLDIR #### [facility] [address] [place] [address] Honing Job Setter: Reno Duron MD Lymphocytes/100 WBC (Bld) 27 % Normal 24-43 [facility]ENTERMediaCrossing Inc[facility] Comment on above: Performed By: #### T RIG LDLDIR #### [facility] [address] [place] [address] Honing Job Setter: Reno Duron MD MCH (RBC) [Entitic mass] 28.8 pg Normal 25.2-33.5 [facility] Comment on above: Performed By: #### T RIG LDLDIR #### [facility] [address] [place] [phone] Honing Job Setter: Reno Duron MD MCHC (RBC) [Mass/Vol] 33.2 g/dL Normal 28.4-34.8 [facility] Comment on above: Performed By: #### T RIG LDLDIR #### [facility] [address] [place] [address] Honing Job Setter: Reno Duron MD MCV (RBC) [Entitic vol] 86.9 fL Normal 82.6-102.9 [facility] Comment on above: Performed By: #### T RIG LDLDIR #### [facility] [address] [place] [address] Honing Job Setter: Reno Duron MD Monocytes/100 WBC (Bld) 10 % Normal 3-12 [facility] Comment on above: Performed By: #### T RIG LDLDIR #### [facility] [address] [place] [address] Honing Job Setter: Reno Duron MD Platelet mean volume (Bld) [Entitic vol] 9.2 fL Normal 8.1-13.5 [facility] Comment on above: Performed By: #### T RIG LDLDIR #### [facility] [address] [place] [address] Honing Job Setter: Reno Duron MD Platelets (Bld) [#/Vol] 277 10*3/uL Normal 138-453 [facility] Comment on above: Performed By: #### T RIG LDLDIR #### [address] [address] Honing Job Setter: Reno Duron MD RBC (Bld) [#/Vol] 4.44 10*6/uL Normal 4.21-5.77 [facility] Comment on above: Performed By: #### T RIG LDLDIR #### [facility] [address] [place] [phone] Honing Job Setter: Reno Duron MD Abs. Basophil 0.04 k/uL Normal 0.00-0.20 [facility] Comment on above: Performed By: #### T RIG LDLDIR #### [facility] [address] [place] [address] Honing Job Setter: Reno Duron MD Abs.Imm.Granulocyte 0.07 k/uL Normal 0.00-0.30 [facility] Comment on above: Performed By: #### T RIG LDLDIR #### [address] [address] Honing Job Setter: Reno Duron MD Abs.Neutrophil (Seg) 5.44 k/uL Normal 1.50-8.10 [facility] Comment on above: Performed By: #### T RIG LDLDIR #### [address] [address] Honing Job Setter: Reno Duron MD Lymphocytes (Bld) [#/Vol] 2.40 10*3/uL Normal 1.10-3.70 [facility] Comment on above: Performed By: #### T RIG LDLDIR #### [address] [address] Honing Job Setter: Reno Duron MD Monocytes (Bld) [#/Vol] 0.86 10*3/uL Normal 0.10-1.20 [facility] Comment on above: Performed By: #### T RIG, LDLDIR #### [facility] [address] [place] [address] Honing Job Setter: Reno Duron MD Neutrophil (Seg) 60 % Normal 36-65 [facility] Comment on above: Performed By: #### T RIG, LDLDIR #### [address] [address] Honing Job Setter: Reno Duron MD NRBC Automated 0.0 per [address] [facility] Comment on above: Performed By: #### T RIG LDLDIR #### [facility] [address] [place] [address] Honing Job Setter: Reno Duron MD WBC (Bld) [#/Vol] 8.9 10*3/uL Normal 3.5-11.3 [facility] Comment on above: Performed By: #### T RIG LDLDIR #### [facility] [address] [place] [address] Honing Job Setter: Reno Duron MD No Panel Informationon 03-17 [facility]ENTERImaging Advantage Portable XR Chest AP single viewon 03-17-2024 No radiographic evid ence of acute cardiopulmonary process. [facility] EXAMINATION: ONE XRAY VIEW OF THE CHEST 03/17/2024 2:11 pm COMPARISON: 01/31/2024 HISTORY: ORDERING SYSTEM PROVIDED HISTORY: chest pain TECHNOLOGIST PROVIDED HISTORY: chest pain FINDINGS: The lungs appear clear. The heart and mediastinal structures appear unremarkable. 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 There is a spinal stimulator in the midthoracic spine. There is no change from prior examination [facility] Ernie Gutiérrez MD - 03/17/2024 EXAMINATION: ONE XRAY VIEW OF THE CHEST 03/17/2024 2:11 pm COMPARISON: 01/31/2024 HISTORY: ORDERING SYSTEM PROVIDED HISTORY: chest pain TECHNOLOGIST PROVIDED HISTORY: chest pain FINDINGS: The lungs appear clear. The heart and mediastinal structures appear unremarkable. 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 There is a spinal stimulator in the midthoracic spine. There is no change from prior examination IMPRESSION: No radiographic evidence of acute cardiopulmonary process. [facility] [employer] Radiology Study observation (narrative) [facility] Portable XR Chest AP single viewOrdered By: Ernie Gutiérrez on 03-17-2024 [employer] Work Phone: Troponinon 03-17-2024 Troponin I.cardiac High sensitivity method [Mass/Vol] 11 ng/L 0 - 22 ng/L [facility] Comment on above: High Sensitivity Tro ponin values cannot be compared with other Troponin methodologies. [facility] Troponin, High Sens 11 ng/L Normal 0-22 [facility] Comment on above: Result Comment: High Sensitivity Troponin values cannot be compared with other Troponin methodologies. Performed By: #### T RIG, LDLDIR #### [facility] [address] [place], [place] [phone] Honing Job Setter: Reno Duron MD Troponin I.cardiac High sensitivity method [Mass/Vol] 11 ng/L 0 - 22 ng/L [facility] Comment on above: High Sensitivity Tro ponin values cannot be compared with other Troponin methodologies. Troponin, High Sens 11 ng/L Normal 0-22 [facility] Comment on above: Result Comment: High Sensitivity Troponin values cannot be compared with other Troponin methodologies. Performed By: #### T RIG, LDLDIR #### [id number] [place], [place] [phone] Honing Job Setter: Reno Duron MD XR CHEST PORTABLEon 03-17-20 XR CHEST PORTABLE EXAMINATION: ONE XRAY VIEW OF THE CHEST 03/17/2024 2:11 pm COMPARISON: 01/31/2024 HISTORY: ORDERING SYSTEM PROVIDED HISTORY: chest pain TECHNOLOGIST PROVIDED HISTORY: chest pain FINDINGS: The lungs appear clear. The heart and mediastinal structures appear unremarkable. 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 There is a spinal stimulator in the midthoracic spine. There is no change from prior examination IMPRESSION: No radiographic evidence of acute cardiopulmonary process. Interpreted by: Ernie Gutiérrez MD Signed by: Ernie Gutiérrez MD 03/17/[address] 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 Performed By: #### C OMP #### [facility] [address] [place] [address] Fe Fat Qualon 03-12-2024 Fe Fat Qual Negative Normal [facility] Comment on above: Performed By: #### F FA #### [id number] [place] [address] Gastroenterology Office/Clin ic Noteon 03-12-2024 Gastroenterology Office/Clinic Note History of Present Illness This is a 53-year-old man who presented to the GI clinic to reestablish care. Patient was last evaluated by GI here at [facility] is in 01/2020 via telemedicine consultation. Patient has pertinent history of recurrent pancreatitis-underwent EUS in 05/2019 which showed gallbladder sludge, small stone-cholecystectomy was performed on 07/11/2019. Patient subsequently developed another episode of pancreatitis in 01/2020 while visiting family in [place]. The clinical course at the time had improved with conservative management with IVF. 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 Patient also has history of fatty liver but with normal LFTs. Last dedicated abdominal imaging from 06/2020 showed evidence of small hiatal hernia, mild distal esophagitis; s/p cholecystectomy status; fatty liver with no focal liver lesions USG RUQ from 02/2019 showed evidence of gallbladder sludge; fatty liver Colonoscopy from 08/2020 showed suboptimal bowel preparation; scattered left-sided diverticulosis; internal hemorrhoids. Repeat colonoscopy was recommended after optimal 2-day bowel preparation. Interval history since the last clinic visit-patient reports being followed by GI both in [facility] [Dr. Saravia] patient states that he has had recurrent episodes of pancreatitis over the last 4 years-last admission for pancreatitis was in December [address] [facility]. Patient states that the pancreatitis was attributed to his underlying hypertriglyceridemia. Patient has been on fenofibrate, atorvastatin for his dyslipidemia. 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 IPMN]. Review of Systems Constitutional : No weight loss, fever, chills, weakness or fatigue. HEENT: Eyes: No visual loss, blurred vision, double vision or yellow sclerae. Ears, Nose, Throat: No hearing loss, sneezing, congestion, runny nose or sore throat. Skin: No rash or itching. Cardiovascular: No chest pain, chest pressure or chest discomfort. No palpitations or edema. Respiratory: No shortness of breath, cough or sputum. Neurological: No headache, dizziness, syncope, paralysis, ataxia, numbness or tingling in the extremities. No change in bowel or bladder control. Musculoskeletal : No muscle, back pain, joint pain or stiffness. Psychiatric: Cooperative, appropriate mood and affect. Physical Exam Patient is hemodynamically stable and afebrile. HEENT: no scleral icterus Skin: no rashes noted Lungs: CTA B/L Cardiovascular system: S1,S2 heard ,Normal rate and rhythm, no rub Abdomen: Soft, no tenderness+, Bowels sounds+ ELECTRICAL SERVICE TECHNICIAN: no focal deficits Assessment/Plan 1. Dong esophagus Continue PPI Avoid NSAIDs. Lifestyle modifications including weight loss, HOB elevation, allowing at least 1-3 hours after eating before lying down, avoiding alcohol and avoiding smoking. Patient states that he had a an EGD within the last few months at [facility]-done by Dr. Saravia-results unknown at this time. Please obtain the records of the same. 2. Fatty liver Patient extensively counseled upon the importance of weight loss [advised at least 10% in the next 6 months], regular exercise. Diets with limited carbohydrates and saturated fat and enriched with high fiber and unsaturated fats (e.g., Mediterranean diet) encouraged due to their additional cardiovascular benefits. - A combination of a hypocaloric diet (daily reduction by 500-1,000 kcal) and moderate-intensity exercise is likely to provide the best likelihood of sustaining weight loss over time. Natural history of fatty liver disease-its potential complications and management options discussed with patient. Will w/u for underlying dyslipidemia-patient is currently on atorvastatin-statins are safe and recommended for CVD risk reduction in patients with MASLD across the disease spectrum, including compensated cirrhosis- Patient is not a candidate GLP-1 analog therapy given his history of recurrent acute pancreatitis 3. Screening for colon cancer Patient states that he had a recent colonoscopy within the last few months-with removal of 1 polyp-pathology unknown. The procedure was done at [facility] by Dr. Saravia-please obtain records of the same 4. Recurrent acute pancreatitis Patient has pertinent history of recurrent pancreatitis-underwent EUS in 05/2019 which showed gallbladder sludge, small stone-cholecystectomy was performed on 07/11/2019. Interval history since the last clinic visit-patient reports being followed by GI both in [facility] [Dr. Saravia] patient states that he has had recurrent episodes of pancreatitis over the last 4 years-last admission for pancreatitis was in December [address] [facility]. Patient states that the pancreatitis was attributed to his underlying hypertrigl (more content not included)... Normal [facility] CA 19-9on 02-08-2024 CA 19-9 17 U/mL Normal 0-35 [facility] Comment on above: Result Comment: The [employer] ECLIA assay is used. Results obtained with different assay methods cannot be used interchangeably. Performed By: #### C EA, CA19 #### [address] [address] Honing Job Setter: Reno Duron MD CBC with Diffon 02-08-2024 Abs. Basophil <0.03 Normal 0.00-0.20 [facility] Comment on above: Performed By: #### T KHUSHBU LDLDIR #### [address] [address] Honing Job Setter: Reno Duron MD Abs.Imm.Granulocyte 0.18 k/uL Normal 0.00-0.30 [facility] Comment on above: Performed By: #### T RIG LDLDIR #### [address] [address] Honing Job Setter: Reno Duron MD Abs.Neutrophil (Seg) 6.09 k/uL Normal 1.50-8.10 [facility] Comment on above: Performed By: #### T RIG LDLDIR #### [address] [address] Honing Job Setter: Reno Duron MD Basophils/100 WBC (Bld) 0 % Normal 0-2 [facility] Comment on above: Performed By: #### T RIG LDLDIR #### [address] [address] Honing Job Setter: Reno Duron MD Eosinophils (Bld) [#/Vol] 0.10 10*3/uL Normal 0.00-0.44 [facility] Comment on above: Performed By: #### T RIG LDLDIR #### [address] [address] Honing Job Setter: Reno Duron MD Eosinophils/100 WBC (Bld) 1 % Normal 1-4 [facility] Comment on above: Performed By: #### T RIG LDLDIR #### [facility] [address] [place] [address] Honing Job Setter: Reno Duron MD Immature granulocytes/100 WBC (Bld) 2 % High 0 [facility] Comment on above: Performed By: #### T RIG LDLDIR #### [address] [address] Honing Job Setter: Reno Duron MD Lymphocytes (Bld) [#/Vol] 2.29 10*3/uL Normal 1.10-3.70 [facility] Comment on above: Performed By: #### T RIG LDLDIR #### [address] [address] Honing Job Setter: Reno Duron MD Lymphocytes/100 WBC (Bld) 24 % Normal 24-43 [facility] Comment on above: Performed By: #### T RIG LDLDIR #### [address] [address] Honing Job Setter: Reno Duron MD Monocytes (Bld) [#/Vol] 0.70 10*3/uL Normal 0.10-1.20 [facility] Comment on above: Performed By: #### T RIG LDLDIR #### [address] [address] Honing Job Setter: Reno Duron MD Monocytes/100 WBC (Bld) 8 % Normal 3-12 [facility] Comment on above: Performed By: #### T RIG LDLDIR #### [address] [address] Honing Job Setter: Reno Duron MD Neutrophil (Seg) 65 % Normal 36-65 [facility] Comment on above: Performed By: #### T RIG LDLDIR #### [facility] [address] [place] [address] Honing Job Setter: Reno Duron MD Erythrocyte distribution width (RBC) [Ratio] 12.3 % Normal 11.8-14.4 [facility] Comment on above: Performed By: #### T RIG LDLDIR #### [facility] [address] [place] [phone] Honing Job Setter: Reno Duron MD Hematocrit (Bld) [Volume fraction] 42.3 % Normal 40.7-50.3 [facility] Comment on above: Performed By: #### T RIG LDLDIR #### [address] [address] Honing Job Setter: Reno Duron MD Hemoglobin (Bld) [Mass/Vol] 13.5 g/dL Normal 13.0-17.0 [facility] Comment on above: Performed By: #### T RIG LDLDIR #### [facility] [address] [place] [address] Honing Job Setter: Reno Duron MD MCH (RBC) [Entitic mass] 28.4 pg Normal 25.2-33.5 [facility] Comment on above: Performed By: #### T RIG LDLDIR #### [facility] [address] [place] [phone] Honing Job Setter: Reno Duron MD MCHC (RBC) [Mass/Vol] 31.9 g/dL Normal 28.4-34.8 [facility] Comment on above: Performed By: #### T RIG LDLDIR #### [facility] [address] [place] [address] Honing Job Setter: Reno Duron MD MCV (RBC) [Entitic vol] 89.1 fL Normal 82.6-102.9 [facility] Comment on above: Performed By: #### T RIG LDLDIR #### [facility] [address] [address] Honing Job Setter: Reno Duron MD NRBC Automated 0.0 per [address] [facility] Comment on above: Performed By: #### T KHUSHBU LDLDIR #### [facility] [place] [address] Honing Job Setter: Reno Duron MD Platelet mean volume (Bld) [Entitic vol] 9.3 fL Normal 8.1-13.5 [facility] Comment on above: Performed By: #### T KHUSHBU LDLDIR #### [facility] [address] [place] [address] Honing Job Setter: Reno Duron MD Platelets (Bld) [#/Vol] 259 10*3/uL Normal 138-453 [facility] Comment on above: Performed By: #### Chantell RÍOS LDLDIR #### [facility] [address] [place] [address] Honing Job Setter: Reno Duron MD RBC (Bld) [#/Vol] 4.75 10*6/uL Normal 4.21-5.77 [facility] Comment on above: Performed By: #### T KHUSHBU LDLDIR #### [facility] [address] [place] [address] Honing Job Setter: Reno Duron MD WBC (Bld) [#/Vol] 9.4 10*3/uL Normal 3.5-11.3 [facility] Comment on above: Performed By: #### T KHUSHBU LDLDIR #### [facility] [address] [place] [address] Honing Job Setter: Reno Duron MD Carcinoembry. Antig.on 02-07 Carcino[employer]ry[employer] Antig. 7.5 ng/mL High 0.0-3.8 [facility] Comment on above: Result Comment: The [employer]wyn ECLIA assay is used. Results obtained with different assay methods cannot be used interchangeably. Performed By: #### C EA, CA19 #### [facility] [address] [place] [address] Honing Job Setter: Reno Duron MD Comp Metabolic Pr/rfx MGon 0 - Albumin [Mass/Vol] 4.0 g/dL Normal 3.5-5.2 [facility] Comment on above: Performed By: #### T RIG, LDLDIR #### [facility] [address] [place] [address] Honing Job Setter: Reno Duron MD Albumin/Glob Ratio 1.4 Normal 1.0-2.5 [facility] Comment on above: Performed By: #### T RIG, LDLDIR #### [facility] [address] [place] [id number] Honing Job Setter: Reno Duron MD Alkaline Phos 155 U/L High 40-129 [facility] Comment on above: Performed By: #### T RIG, LDLDIR #### [facility] [address] [place] [address] Honing Job Setter: Reno Duron MD ALT [Catalytic activity/Vol] 311 U/L High 5-41 [facility] Comment on above: Performed By: #### T RIG, LDLDIR #### [facility] [address] [place] [address] Honing Job Setter: Reno Duron MD Anion gap [Moles/Vol] 9 mmol/L Normal 9-17 [facility] Comment on above: Performed By: #### T RIG, LDLDIR #### [facility] [address] [place] [address] Honing Job Setter: Reno Duron MD AST [Catalytic activity/Vol] 121 U/L High <40 [facility] Comment on above: Performed By: #### T RIG, LDLDIR #### [facility] [address] [place] [address] Honing Job Setter: Reno Duron MD Bilirubin [Mass/Vol] 0.5 mg/dL Normal 0.3-1.2 [facility] Comment on above: Performed By: #### T RIG LDLDIR #### [facility] [address] [place] [address] Honing Job Setter: Reno Duron MD BUN/CRE Ratio 18 Normal 9-20 [facility] Comment on above: Performed By: #### T RIG LDLDIR #### [facility] [address] [place] [address] Honing Job Setter: Reno Duron MD Calcium [Mass/Vol] 9.2 mg/dL Normal 8.6-10.4 [facility] Comment on above: Performed By: #### T RIG LDLDIR #### [facility] [address] [place] [address] Honing Job Setter: Reno Duron MD Chloride [Moles/Vol] 99 mmol/L Normal 98-107 [facility] Comment on above: Performed By: #### T RIG LDLDIR #### [facility] [address] [place] [address] Honing Job Setter: Reno Duron MD CO2 [Moles/Vol] 29 mmol/L Normal 20-31 [facility] Comment on above: Performed By: #### T RIG LDLDIR #### [facility] [address] [place] [address] Honing Job Setter: Reno Duron MD Creatinine [Mass/Vol] 1.1 mg/dL Normal 0.7-1.2 [facility] Comment on above: Performed By: #### T RIG, LDLDIR #### [facility] [address] [place] [address] Honing Job Setter: Reno Duron MD GFR/1.73 sq M.predicted among non-blacks MDRD (S/P/Bld) [Vol rate/Area] 80 mL/min/{1.73_m2} Normal >60 [facility] Comment on above: Result Comment: These results are not intended for use in patients <18 years of age. eGFR results are calculated without a race factor using the 2020 CKD-EPI equation. Careful clinical correlation is recommended, particularly when comparing to results calculated using previous equations. The CKD-EPI equation is less accurate in patients with extremes of muscle mass, extra-renal metabolism of creatine, excessive creatine ingestion, or following therapy that affects renal tubular secretion. Performed By: #### T RIG LDLDIR #### [facility] [address] [place] [address] Honing Job Setter: Reno Duron MD Glucose [Mass/Vol] 123 mg/dL High 70-99 [facility] Comment on above: Performed By: #### T RIG LDLDIR #### [facility] [address] [place] [address] Honing Job Setter: Reno Duron MD Potassium [Moles/Vol] 4.2 mmol/L Normal 3.7-5.3 [facility] Comment on above: Performed By: #### T RIG LDLDIR #### [facility] [address] [place] [address] Honing Job Setter: Reno Duron MD Protein [Mass/Vol] 6.8 g/dL Normal 6.4-8.3 [facility] Comment on above: Performed By: #### T RIG LDLDIR #### [facility] [address] [place] [address] Honing Job Setter: Reno Duron MD Sodium [Moles/Vol] 137 mmol/L Normal 135-144 [facility] Comment on above: Performed By: #### T RIG LDLDIR #### [facility] [address] [place] [address] Honing Job Setter: Reno Duron MD Urea nitrogen [Mass/Vol] 20 mg/dL Normal 6-20 [facility] Comment on above: Performed By: #### T RIG LDLDIR #### [facility] [address] [place] [address] Honing Job Setter: Reno Duron MD LDL Chol, Directon LDL Chol, Direct 65 mg/dL Normal [facility] Comment on above: Performed By: #### Chantell RÍOS LDLDIR #### [facility] [address] [place] [address] Honing Job Setter: Reno Duron MD Lipaseon 02-08-2024 Lipase [Catalytic activity/Vol] 49 U/L Normal 13-60 [facility] Comment on above: Performed By: #### B 12FOL #### [facility] [address] [place] [address] Honing Job Setter: Reno Duron MD Triglycerideson 02-08-2024 Triglyceride [Mass/Vol] 552 mg/dL High <150 [facility] Comment on above: Result Comment: Triglyceride Guidelines: <150 Desirable 150-199 Borderline 200-499 High >499 Very high Based on AHA Guidelines for fasting triglyceride, July 2012. Performed By: #### T KHUSHBU LDLDIR #### [facility] [address] [place] [address] Honing Job Setter: Reno Duron MD CBC with Diffon 02-07-2024 Abs. Basophil 0.03 k/uL Normal 0.00-0.20 [facility] Comment on above: Performed By: #### C P, CDP, LIP #### [facility] [address] [place] [address] [place] [address] Honing Job Setter: Ziggy Hilario MD Abs. Eosinophil <0.03 Normal 0.00-0.44 [facility] Comment on above: Performed By: #### C P, CDP, LIP #### [facility] [address] [place] [address] [place] [address] Honing Job Setter: Ziggy Hilario MD Abs.Imm.Granulocyte 0.26 k/uL Normal 0.00-0.30 [facility] Comment on above: Performed By: #### C P, CDP, LIP #### [facility] [address] [place] [address] Dr. [place] [facility] Honing Job Setter: Ziggy Hilario MD Abs.Neutrophil (Seg) 11.64 k/uL High 1.50-8.10 [facility] Comment on above: Performed By: #### C P, CDP, LIP #### [facility] [address] [place] [address] Dr. [place], [facility] Honing Job Setter: Ziggy Hilario MD Basophils/100 WBC (Bld) 0 % Normal 0-2 [facility] Comment on above: Performed By: #### C P, CDP, LIP #### [address] [place], [facility] Honing Job Setter: Ziggy Hilario MD Eosinophils/100 WBC (Bld) 0 % Low 1-4 [facility] Comment on above: Performed By: #### C P, CDP, LIP #### [address] [place], [facility] Honing Job Setter: Ziggy Hilario MD Erythrocyte distribution width (RBC) [Ratio] 12.0 % Normal 11.8-14.4 [facility] Comment on above: Performed By: #### C P, CDP, LIP #### [address] [place], [facility] Honing Job Setter: Ziggy Hilario MD Hematocrit (Bld) [Volume fraction] 41.7 % Normal 40.7-50.3 [facility] Comment on above: Performed By: #### C P, CDP, LIP #### [address] [place], [facility] Honing Job Setter: Ziggy Hilario MD Hemoglobin (Bld) [Mass/Vol] 14.2 g/dL Normal 13.0-17.0 [facility] Comment on above: Performed By: #### C P, CDP, LIP #### [address] [place], [facility] Honing Job Setter: Ziggy Hilario MD Immature granulocytes/100 WBC (Bld) 2 % High 0 [facility] Comment on above: Performed By: #### C P, CDP, LIP #### [facility] [address] [place], [place] [phone] Honing Job Setter: Ziggy Hilario MD Lymphocytes (Bld) [#/Vol] 1.67 10*3/uL Normal 1.10-3.70 [facility] Comment on above: Performed By: #### C P, CDP, LIP #### [facility] [address] [place] [address] Honing Job Setter: Ziggy Hilario MD Lymphocytes/100 WBC (Bld) 11 % Low 24-43 [facility] Comment on above: Performed By: #### C P, CDP, LIP #### [address] [place], [facility] Honing Job Setter: Ziggy Hilario MD MCH (RBC) [Entitic mass] 28.8 pg Normal 25.2-33.5 [facility] Comment on above: Performed By: #### C P, CDP, LIP #### [address] [place], [place] [phone] Honing Job Setter: Ziggy Hilario MD MCHC (RBC) [Mass/Vol] 34.1 g/dL Normal 28.4-34.8 [facility] Comment on above: Performed By: #### C P, CDP, LIP #### [address] [place], [place] [phone] Honing Job Setter: Ziggy Hilario MD MCV (RBC) [Entitic vol] 84.6 fL Normal 82.6-102.9 [facility] Comment on above: Performed By: #### C P, CDP, LIP #### [address] [place], [place] [phone] Honing Job Setter: Ziggy Hilario MD Monocytes (Bld) [#/Vol] 1.35 10*3/uL High 0.10-1.20 [facility] Comment on above: Performed By: #### C P, CDP, LIP #### [facility] [address] [place], [place] [phone] Honing Job Setter: Ziggy Hilario MD Monocytes/100 WBC (Bld) 9 % Normal 3-12 [facility] Comment on above: Performed By: #### C P, CDP, LIP #### [facility] [address] [place] [address] Honing Job Setter: Ziggy Hilario MD Neutrophil (Seg) 78 % High 36-65 [facility] Comment on above: Performed By: #### C P, CDP, LIP #### [address] [place], [place] [phone] Honing Job Setter: Ziggy Hilario MD NRBC Automated 0.0 per [address] [facility] Comment on above: Performed By: #### C P, CDP, LIP #### [address] [place], [place] [phone] Honing Job Setter: Ziggy Hilario MD Platelet mean volume (Bld) [Entitic vol] 9.1 fL Normal 8.1-13.5 [facility] Comment on above: Performed By: #### C P, CDP, LIP #### [facility] [address] [place] [address] [place] [address] Honing Job Setter: Ziggy Hilario MD Platelets (Bld) [#/Vol] 291 10*3/uL Normal 138-453 [facility] Comment on above: Performed By: #### C P, CDP, LIP #### [facility] [address] [place], [place] [phone] Honing Job Setter: Ziggy Hilario MD RBC (Bld) [#/Vol] 4.93 10*6/uL Normal 4.21-5.77 [facility] Comment on above: Performed By: #### C P, CDP, LIP #### [facility] [address] [place] [address] Honing Job Setter: Ziggy Hilario MD WBC (Bld) [#/Vol] 15.0 10*3/uL High 3.5-11.3 [facility] Comment on above: Performed By: #### C P, CDP, LIP #### [facility] [address] [place], [place] [phone] Honing Job Setter: Ziggy Hilario MD CT ABDOMEN PELVIS W IV CONTR Makayla 02-07-2024 CT ABDOMEN PELVIS W IV CONTRAST EXAMINATION: CT OF THE ABDOMEN AND PELVIS WITH CONTRAST 02/07/2024 9:00 am TECHNIQUE: CT of the abdomen and pelvis was performed with the administration of intravenous contrast. Multiplanar reformatted images are provided for review. Automated exposure control, iterative reconstruction, and/or weight based adjustment of the mA/kV was utilized to reduce the radiation dose to as low as reasonably achievable. COMPARISON: 05/18/2023, 05/31/2012 HISTORY: ORDERING SYSTEM PROVIDED HISTORY: RUQ and epigastric pain; hx of pancreatitis TECHNOLOGIST PROVIDED HISTORY: RUQ and epigastric pain; hx of pancreatitis Decision Support Exception - unselect if not a suspected or confirmed emergency medical condition->Emergency Medical Condition (MA) FINDINGS: Lower Chest: Small hiatal hernia. Minimal dependent opacities in the right lung base. Organs: Fatty liver. Cholecystectomy. No biliary dilatation. Dilatation of the pancreatic duct in the body and tail is noted enlarging to 14 mm in the tail. The duct at the level of the mid body measures 7.5 mm and the duct at the level of the neck is 4 mm. No intraductal stone or definable mass. No surrounding inflammatory change. No new or suspicious findings identified in the kidneys. The spleen is normal in size. The adrenal glands appear unremarkable. GI/Bowel: There is no bowel dilatation or wall thickening identified. Diverticulosis. Pelvis: Brachytherapy seeds in the prostate. Peritoneum/Retroperitoneu m: No free air or free fluid. The aorta is normal in caliber. The visceral branches are patent. No lymphadenopathy. Bones/Soft Tissues: Partially visualized thoracic neurostimulator. Status post median sternotomy. Vertebroplasties have been performed T8, T9 and L3. IMPRESSION: 1. No acute inflammatory process identified. 2. Dilatation of the pancreatic duct in the body and tail is again noted enlarging to 14 mm in the tail, similar compared to 2022 imaging. No definable intraductal stone or definable mass. While this could represent a sequela of pancreatitis, intraductal IPMN can have a similar appearance. Consider abdominal MRI with MultiHance. If this cannot be performed, contrast-enhanced CT pancreas protocol is recommended. 3. Fatty liver. 4. Diverticulosis. 5. Thoracic neurostimulator in place.. Interpreted by: Eder Jefferson MD Signed by: Eder Jefferson MD 02/07/[address] [facility] Comp Metabolic Profon 2023 Albumin [Mass/Vol] 4.4 g/dL Normal 3.5-5.2 [facility] Comment on above: Performed By: #### C P, CDP, LIP #### [facility] [address] [place] [address] [place] [address] Honing Job Setter: Ziggy Hilario MD Albumin/Glob Ratio 1.4 Normal 1.0-2.5 [facility] Comment on above: Performed By: #### C P, CDP, LIP #### [address] [place] [address] Honing Job Setter: Ziggy Hilario MD Alkaline Phos 157 U/L High 40-129 [facility] Comment on above: Performed By: #### C P, CDP, LIP #### [facility] [address] [place], [place] [phone] Honing Job Setter: Ziggy Hilario MD ALT [Catalytic activity/Vol] 337 U/L High 5-41 [facility] Comment on above: Performed By: #### C P, CDP, LIP #### [facility] [address] [place] [address] Honing Job Setter: Ziggy Hilario MD Anion gap [Moles/Vol] 12 mmol/L Normal 9-17 [facility] Comment on above: Performed By: #### C P, CDP, LIP #### [facility] [address] [place], [place] [phone] Honing Job Setter: Ziggy Hilario MD AST [Catalytic activity/Vol] 403 U/L High <40 [facility] Comment on above: Performed By: #### C P, CDP, LIP #### [facility] [address] [place], [place] [phone] Honing Job Setter: Ziggy Hilario MD Bilirubin [Mass/Vol] 1.1 mg/dL Normal 0.3-1.2 [facility] Comment on above: Performed By: #### C P, CDP, LIP #### [facility] [address] [place], [place] [phone] Honing Job Setter: Ziggy Hilario MD BUN/CRE Ratio 27 High 9-20 [facility] Comment on above: Performed By: #### C P, CDP, LIP #### [facility] [address] [place], [place] [phone] Honing Job Setter: Ziggy Hilario MD Calcium [Mass/Vol] 9.9 mg/dL Normal 8.6-10.4 [facility] Comment on above: Performed By: #### C P, CDP, LIP #### [facility] [address] [place], [place] [phone] Honing Job Setter: Ziggy Hilario MD Chloride [Moles/Vol] 93 mmol/L Low 98-107 [facility] Comment on above: Performed By: #### C P, CDP, LIP #### [facility] [address] [place], [place] [phone] Honing Job Setter: Ziggy Hilario MD CO2 [Moles/Vol] 29 mmol/L Normal 20-31 [facility] Comment on above: Performed By: #### C P, CDP, LIP #### [facility] [address] [place], [place] [phone] Honing Job Setter: Ziggy Hilario MD Creatinine [Mass/Vol] 0.9 mg/dL Normal 0.7-1.2 [facility] Comment on above: Performed By: #### C P, CDP, LIP #### [facility] [address] [place] [address] Honing Job Setter: Ziggy Hilario MD GFR/1.73 sq M.predicted among non-blacks MDRD (S/P/Bld) [Vol rate/Area] mL/min/{1.73_m2} Normal >60 [facility] Comment on above: Result Comment: These results are not intended for use in patients <18 years of age. eGFR results are calculated without a race factor using the 2020 CKD-EPI equation. Careful clinical correlation is recommended, particularly when comparing to results calculated using previous equations. The CKD-EPI equation is less accurate in patients with extremes of muscle mass, extra-renal metabolism of creatine, excessive creatine ingestion, or following therapy that affects renal tubular secretion. Performed By: #### C P, CDP, LIP #### [facility] [address] [place] [address] [place] [address] Honing Job Setter: Ziggy Hilario MD Glucose [Mass/Vol] 181 mg/dL High 70-99 [facility] Comment on above: Performed By: #### C P, CDP, LIP #### [address] [place] [address] Honing Job Setter: Ziggy Hilario MD Potassium [Moles/Vol] 4.2 mmol/L Normal 3.7-5.3 [facility] Comment on above: Performed By: #### C P, CDP, LIP #### [facility] [address] [place] [address] Honing Job Setter: Ziggy Hilario MD Protein [Mass/Vol] 7.5 g/dL Normal 6.4-8.3 [facility] Comment on above: Performed By: #### C P, CDP, LIP #### [facility] [address] [place] [phone] Honing Job Setter: Ziggy Hilario MD Sodium [Moles/Vol] 134 mmol/L Low 135-144 [facility] Comment on above: Performed By: #### C P, CDP, LIP #### [facility] [address] [place], [place] [phone] Honing Job Setter: Ziggy Hilario MD Urea nitrogen [Mass/Vol] 24 mg/dL High 6-20 [facility] Comment on above: Performed By: #### C P, CDP, LIP #### [facility] [address] [place], [place] [phone] Honing Job Setter: Ziggy Hilario MD Hepatitis Acute [facility] 02-06 Hep A Ab,IgM Non-Reactive Normal [facility] Comment on above: Performed By: #### P HEP #### [address] [address] Honing Job Setter: Reno Duron MD Hep B Core Ab,IgM Non-Reactive Normal [facility] Comment on above: Performed By: #### P HEP #### [address] [address] Honing Job Setter: Reno Duron MD Hep B Surf Ag Non-Reactive Normal [facility] Comment on above: Performed By: #### P HEP #### [address] [address] Honing Job Setter: Reno Duron MD Hep C Ab Non-Reactive Normal [facility] Comment on above: Result Comment: The hepatitis C procedure used in our laboratory is a Chemiluminescent test specific for three recombinant HCV antigens. A negative anti-HCV result indicates that the antibodies to hepatitis C virus are not present at this time. Individuals with reactive anti-HCV should be considered infected and infectious until proven otherwise. Confirmation of all equivocal or reactive results is recommended by ordering HCV RNA by PCR. Performed By: #### P HEP #### [address] [address] Honing Job Setter: Reno Duron MD Lactic Acidon 02-07-2024 Lactate [Moles/Vol] 1.7 mmol/L Normal 0.5-2.2 [facility] Comment on above: Performed By: #### T RIG, LDLDIR #### [facility] [address] [place] [address] Honing Job Setter: Reno Duron MD Lipaseon 02-07-2024 Lipase [Catalytic activity/Vol] 2280 U/L Critically high 13-60 [facility] Comment on above: Performed By: #### U MICAO, UAX #### [facility] [address] [place] [address] Honing Job Setter: Ziggy Hilario MD US ABDOMEN LIMITEDon 024 US ABDOMEN LIMITED EXAMINATION: RIGHT UPPER QUADRANT ULTRASOUND 02/07/2024 10:59 am COMPARISON: CT 02/07/2024 HISTORY: ORDERING SYSTEM PROVIDED HISTORY: elevated LFT's; elevated lipase TECHNOLOGIST PROVIDED HISTORY: elevated LFT's; elevated lipase Specify organ?->LIVER Specify organ?->SPLEEN Specify organ?->GALLBLADDER Specify organ?->PANCREAS FINDINGS: LIVER: Hepatomegaly measuring 20 cm with increased echogenicity. No focal liver lesion identified. No evidence for intrahepatic biliary dilatation. The main portal vein is patent and demonstrates antegrade flow. BILIARY SYSTEM: Cholecystectomy. The measured proximal common bile duct measures up to 11 mm. RIGHT KIDNEY: The right kidney is grossly unremarkable without evidence of hydronephrosis. PANCREAS: Not well visualized. OTHER: No evidence of right upper quadrant ascites. IMPRESSION: 1. Mild hepatomegaly with steatosis. 2. Cholecystectomy. Mildly enlarged visualized portion of the common bile duct, which may represent reservoir effect in the absence of cholestasis. Interpreted by: Eder Jefferson MD Signed by: Eder Jefferson MD 02/07/[address] [facility] XR CHEST (2 VW)on 02-01-2024 XR CHEST (2 VW) EXAMINATION: TWO XRAY VIEWS OF THE CHEST 01/31/2024 11:02 am COMPARISON: None. HISTORY: ORDERING SYSTEM PROVIDED HISTORY: COVID TECHNOLOGIST PROVIDED HISTORY: shortness of breath, Covid, History of lung disease and pneumonia. FINDINGS: Lungs: Clear. Pleura: No effusion or pneumothorax. Cardiomediastinal silhouette: Normal contours. Bones: No acute osseous findings. Kyphoplasty changes of the mid to lower thoracic spine. Postsurgical changes of the sternum Soft tissues: Spinal cord stimulator terminating within the midthoracic spine. IMPRESSION: No acute pulmonary findings. Interpreted by: Mateo Aguilar MD Signed by: Mateo Aguilar MD 02/01/[address] [facility] Benzodiazepines Screen Ql (U )on 01-21-2024 Benzodiazepines Ql (U) Negative Normal NEG [facility] Comment on above: Result Comment: Leon odiazepines screening cut off value = 200 ng/mL This report is intended for use in clinical monitoring or management of patients. Performed By: #### 1 [id number] #### [facility] ([id number]) [address] [facility] [address] GENERIC ORDERon 01-21-20 TEST NAME UQNTPP QUANTITATIVE PAIN PANEL, URINE Normal [facility] Comment on above: Performed By: #### C GO #### [facility] ([id number]) [address] [place] [id number] TEST RESULT See Below Normal [facility] Comment on above: Result Comment: NOTE TEST RESULT FLAG UNIT REF.RANGE ----- Specimen Validity Quality See below Specimen quality results within acceptable limits Specimen Validity Creatinine 16.2 L mg/dL 20.0-300.0 Specimen Validity PH 6.6 4.5-8.0 Specimen Validity Specific [place] 1.005 1.003-1.035 Specimen Validity Oxidants <38 mg/L <200 Specimen Validity Nitrites <50 mg/L <500 Specimen Validity Chromate <10 mg/L <50 QUANTITATIVE PAIN PANEL, URINE Morphine Quant, Urine <10 ng/mL <10 Morphine is a metabolite of codeine and heroin. Oxymorphone Quant, Urine <5 ng/mL <5 Oxymorphone is a metabolite of oxycodone. Hydromorphone Quant, Urine <5 ng/mL <5 Hydromorphone is a metabolite of hydrocodone. Dihydrocodeine Quant, Urine <5 ng/mL <5 Codeine Quant, Urine <11 ng/mL <11 Amphetamine, Urine <5 ng/mL <5 Desmethyltramadol,Ur >5000 H ng/mL <20 O-Desmethyltramadol is a metabolite of tramadol and its presence indicates use of a tramadol containing drug (Ultram). Benzoylecognine,Ur Qnt <24 ng/mL <24 Benzoylecgonine is a metabolite of cocaine. Oxycodone Quant, Urine <10 ng/mL <10 Methamphetamine, Urine <8 ng/mL <8 6-Acetylmorphine Quant, Urine <5 ng/mL <5 6-BARBRA (6-monoacetylmorphine, also known as 6-acetylmorphine) is a unique metabolite of heroin. Presence of 6-BARBRA indicates use of heroin. 6-BARBRA is further metabolized to morphine and absence of 6-BARBRA does not rule out the use of heroin. Hydrocodone Quant, Urine <8 ng/mL <8 Hydrocodone is a metabolite of dihydrocodeine. Norfentanyl, Urine <6 ng/mL <6 Norfentanyl is a metabolite of fentanyl. Tramadol, Urine >5208 H ng/mL <25 Presence of tramadol indicates use of a tramadol containing drug (Ultram). Tramadol is metabolized to O-Desmethyltramadol. Norbuprenorphine, Ur <20 ng/mL <20 Norbuprenorphine is the primary active metabolite of buprenorphine. Cannabinoid, Urine <16 ng/mL <16 Tetrahydrocannabinol carboxylic acid (THCA) is a metabolite of oylxl-6-kquxnbovqupzxgvsdiuf which is the main active component of marijuana. Fentanyl, Urine <6 ng/mL <6 Buprenorphine, Ur <20 ng/mL <20 Methadone Urine <16 ng/mL <16 Methadone metabolite Urine <6 ng/mL <6 EDDP is a metabolite of methadone. Note See Below This test is for medical use only. This test was developed and its performance characteristics determined by [facility] [place] ([facility]). It has not been cleared or approved by the FDA. [facility] is regulated under CLIA as qualified to perform high-complexity testing. This test is used for clinical purposes. It should not be regarded as investigational or for research. QUANTITATIVE PAIN PANEL, URINE Test Performed By: [place] [address] Tow Picker: Yakov Gurrola III, M.D. [place] #[id number] Performed By: #### C GO #### [facility] ([id number]) [address] [place] [id number] Laboratory comment Jacinto (Repo rt)on 01-21-2024 UNLISTED LAB TEST Sent to reference lab Normal [facility] Comment on above: Performed By: #### C GO #### [facility] ([id number]) [address] [place] [id number] Glucose Glucometer (BldC) [M ass/Vol]on 01-14-2024 Glucose [Mass/Vol] 91 mg/dL Normal 65-99 [facility] Lupus Anticoagulanton 2023 Dilute Santhosh Viper Negative Normal [facility] Comment on above: Performed By: #### Chantell RÍOS LDL #### [facility] [place] [address] Honing Job Setter: Reno Duron MD Lupus Anticoagulanton 2023 Anticardiolipin IgM 1.3 MPL Normal 0.0-10.0 [facility] Comment on above: Result Comment: Reference Range: <10.0 Negative 10.0-40.0 Equivocal >40.0 Positive Performed By: #### Chantell RÍOS LDL #### [facility] [address] [place], [place] [phone] Honing Job Setter: Reno Duron MD Anticardiolipin IgA 6.0 APL Normal 0.0-14.0 [facility] Comment on above: Result Comment: Reference Range: <14.0 Negative 14.0-20.0 Equivocal >20.0 Positive When results are Equivocal, it is recommended to retest after 4-6 weeks. Performed By: #### T KHUSHBU LDLDIR #### [facility] [address] [place] [phone] Honing Job Setter: Reno Duron MD Anticardiolipin IgG 1.2 GPL Normal 0.0-10.0 [facility] Comment on above: Result Comment: Reference Range: <10.0 Negative 10.0-40.0 Equivocal >40.0 Positive Performed By: #### T KHUSHBU LDLDIR #### [facility] [address] [place] [phone] Honing Job Setter: Reno Duron MD Ironon 11-30-2023 Iron [Mass/Vol] 95 ug/dL 59 - 158 ug/dL [facility] Iron [Mass/Vol] 95 ug/dL Normal 59-158 [facility] Comment on above: Performed By: #### T KHUSHBU LDLDIR #### [facility] [address] [place] [address] Honing Job Setter: Reno Duron MD Lupus Anticoagulanton 2023 aPTT Coag (Bld) [Time] 28.1 s Normal 26.8-34.8 [facility] Comment on above: Result Comment: IV Heparin Therapy Range: 62.0-94.0 Performed By: #### Chantell RÍOS LDLDIR #### [facility] [address] [place] [phone] Honing Job Setter: Reno Duron MD INR Coag (PPP) [Relative time] 1.0 {INR} Normal [facility] Comment on above: Result Comment: Therapeutic Range: Moderate Anticoagulant Intensity: INR = 2.0-3.0 High Anticoagulant Intensity: INR = 2.5-3.5 Performed By: #### T KHUSHBU LDLDIR #### [facility] [address] [place] [phone] Honing Job Setter: Reno Duron MD PT Coag (PPP) [Time] 13.2 s Normal 11.9-14.8 [facility] Comment on above: Performed By: #### T RIG, LDLDIR #### [facility] [address] [place] [address] Honing Job Setter: Reno Duron MD Microscopic Urinalysison Bacteria LM Ql (Urine sed) TRACE Abnormal None [facility] Epithelial cells LM.HPF (Urine sed) [#/Area] None [facility] Interpretation and review of laboratory results Abnormal [facility] RBC LM.HPF (Urine sed) [#/Area] None [facility] WBC LM.HPF (Urine sed) [#/Area] None [facility] No Panel Informationon 11-30 [facility] UA w/Reflex Cultureon 2023 Bilirubin, SemiQt,Ur Negative Normal [facility]G [facility] Comment on above: Performed By: #### U REBEKA UAX #### [facility] [address] [place] [address] Honing Job Setter: Ziggy Hilario MD Blood, Urine Negative Normal NEG [facility] Comment on above: Performed By: #### U REBEKA UAX #### [facility] [address] [place] [address] Honing Job Setter: Ziggy Hilario MD Clarity (U) Clear Normal CLEAR [facility] Comment on above: Performed By: #### U CASSYO, UAX #### [facility] [address] [place] [address] Honing Job Setter: Ziggy Hilario MD Color (U) Yellow Normal YEL [facility] Comment on above: Performed By: #### U CASSYO, UAX #### [facility] [address] [place] [address] Honing Job Setter: Ziggy Hilario MD Glucose Ql (U) Negative Normal NEG [facility] Comment on above: Performed By: #### U MICAO, UAX #### [facility] [address] [place], [place] [phone] Honing Job Setter: Ziggy Hilario MD Ketones Ql (U) Negative Normal NEG [facility] Comment on above: Performed By: #### U MICAO, UAX #### [facility] [address] [place] [address] Dr[place], [place] [phone] Honing Job Setter: Ziggy Hilario MD Leukocyte esterase Test strip Ql (U) Negative Normal NEG [facility] Comment on above: Performed By: #### U MICAO, UAX #### [facility] [address] [place] [address] Dr. [place], [place] [phone] Honing Job Setter: Ziggy Hilario MD Nitrite,Ur Negative Normal [facility] Comment on above: Performed By: #### U MICAO, UAX #### [facility] [address] [place] [address] Dr. [place], [id number] Honing Job Setter: Ziggy Hilario MD PH,Ur 6.0 Normal 5.0-9.0 [facility] Comment on above: Performed By: #### U MICAO, UAX #### [facility] [address] [place] [address] Dr. [place], [place] [phone] Honing Job Setter: Ziggy Hilario MD Protein Ql (U) Negative Normal NEG [facility] Comment on above: Performed By: #### U MICAO, UAX #### [facility] [address] [place] [address] Dr. [place], [place] [phone] Honing Job Setter: Ziggy Hilario MD Spec. Touchet,Ur <1.005 Low 1.010-1.020 [facility] Comment on above: Performed By: #### U MICAO, UAX #### [facility] [address] [place] [address] Dr. [place], [place] [phone] Honing Job Setter: Ziggy Hilario MD Urobilinogen,Ur Normal Normal 0.0-1.0 [facility] Comment on above: Performed By: #### U MICAO, UAX #### [facility] [address] [place] [address] Honing Job Setter: Ziggy Hilario MD Urinalysis with Reflex to Cu ltureon 11-30-2023 Bilirubin Ql (U) Negative NEGATIVE [facility] Clarity (U) Clear Clear [facility] Color (U) Yellow Yellow [facility] Glucose Test strip (U) [Mass/Vol] Negative NEGATIVE mg/dL [facility] Hemoglobin Auto test strip Ql (U) Negative NEGATIVE [facility] Interpretation and review of laboratory results Abnormal [facility] Ketones (U) [Mass/Vol] Negative NEGATIVE mg/dL [facility] Leukocyte esterase Test strip Ql (U) Negative NEGATIVE [facility] Nitrite Ql (U) Negative NEGATIVE [facility] pH (U) 6.0 [pH] 5.0 - 9.0 [facility] Protein (U) [Mass/Vol] Negative NEGATIVE mg/dL [facility] Specific gravity (U) [Rel density] Low 1.010 - 1.020 [facility] Urobilinogen Qn (U) Normal 0.0 - 1. 0 EU/dL [facility] Urinalysis,Microon 4 Bacteria TRACE Abnormal NONE [facility] Comment on above: Performed By: #### U MICAO, UAX #### [facility] [address] [place] [address] Honing Job Setter: Ziggy Hilario MD Epithelial cells LM Ql (Urine sed) None Normal 0-5 [facility] Comment on above: Performed By: #### U MICAO, UAX #### [facility] [address] [place] [address] Honing Job Setter: Ziggy Hilario MD Urine RBC's None Normal 0-2 [facility] Comment on above: Performed By: #### U MICAO, UAX #### [facility] [address] [place] [address] Honing Job Setter: Ziggy Hilario MD Urine WBC's None Normal 0-5 [facility] Comment on above: Performed By: #### U LAUREL STALEY #### [facility] [address] [place] [address] Honing Job Setter: Ziggy Hilario MD Vitamin D 25 Hydroxyon 11-30 25-hydroxyvitamin D3 [Mass/Vol] 80.7 ng/mL 29.9 - PINF ng/mL [facility] Comment on above: Reference Range: Vitamin D status Range Deficiency <20 ng/mL Mild Deficiency 20-30 ng/mL Sufficiency 30-100 ng/mL Toxicity >100 ng/mL Vitamin D 25 OHon 11-30-2023 Vitamin D 25 OH 80.7 ng/mL Normal >29.9 [facility] Comment on above: Result Comment: Reference Range: Vitamin D status Range Deficiency <20 ng/mL Mild Deficiency 20-30 ng/mL Sufficiency 30-100 ng/mL Toxicity >100 ng/mL Performed By: #### T RIG, LDLDIR #### [place] [id number] [place] [address] Honing Job Setter: Reno Duron MD Basic Metabolic Profon 10-075 Anion gap [Moles/Vol] 10 mmol/L Normal - [facility] Comment on above: Performed By: #### T RIG, LDLDIR #### [facility] [address] [place] [address] Honing Job Setter: Reno Duron MD BUN/CRE Ratio 18 Normal - [facility] Comment on above: Performed By: #### T RIG, LDLDIR #### [facility] [address] [place] [address] Honing Job Setter: Reno Duron MD Calcium [Mass/Vol] 9.8 mg/dL Normal 8.6-10.4 [facility] Comment on above: Performed By: #### T RIG, LDLDIR #### [facility] [address] [place] [phone] Honing Job Setter: Reno Duron MD Chloride [Moles/Vol] 99 mmol/L Normal 98-107 [facility] Comment on above: Performed By: #### T RIG LDLDIR #### [facility] [address] [place] [address] Honing Job Setter: Reno Duron MD CO2 [Moles/Vol] 28 mmol/L Normal 20-31 [facility] Comment on above: Performed By: #### T RIG, LDLDIR #### [facility] [address] [place] [address] Honing Job Setter: Reno Duron MD Creatinine [Mass/Vol] 1.0 mg/dL Normal 0.7-1.2 [facility] Comment on above: Performed By: #### T RIG LDLDIR #### [facility] [address] [place] [phone] Honing Job Setter: Reno Duron MD GFR/1.73 sq M.predicted among non-blacks MDRD (S/P/Bld) [Vol rate/Area] mL/min/{1.73_m2} Normal >60 [facility] Comment on above: Result Comment: These results are not intended for use in patients <18 years of age. eGFR results are calculated without a race factor using the 2020 CKD-EPI equation. Careful clinical correlation is recommended, particularly when comparing to results calculated using previous equations. The CKD-EPI equation is less accurate in patients with extremes of muscle mass, extra-renal metabolism of creatine, excessive creatine ingestion, or following therapy that affects renal tubular secretion. Performed By: #### T RIG, LDLDIR #### [facility] [address] [place] [address] Honing Job Setter: Reno Duron MD Glucose [Mass/Vol] 100 mg/dL High 70-99 [facility] Comment on above: Performed By: #### T RIG, LDLDIR #### [facility] [address] [place] [address] Honing Job Setter: Reno Duron MD Potassium [Moles/Vol] 4.1 mmol/L Normal 3.7-5.3 [facility] Comment on above: Performed By: #### T KHUSHBU LDLDIR #### [address] [address] Honing Job Setter: Reno Duron MD Sodium [Moles/Vol] 137 mmol/L Normal 135-144 [facility] Comment on above: Performed By: #### T KHUSHBU LDLDIR #### [facility] [address] [place] [phone] Honing Job Setter: Reno Duron MD Urea nitrogen [Mass/Vol] 18 mg/dL Normal 6-20 [facility] Comment on above: Performed By: #### T KHUSHBU LDLDIR #### [facility] [address] [place] [address] Honing Job Setter: Reno Duron MD CBC with Diffon 10-07-2023 Abs. Basophil 0.05 k/uL Normal 0.00-0.20 [facility] Comment on above: Performed By: #### Chantell RÍOS LDLDIR #### [facility] [address] [place] [phone] Honing Job Setter: Reno Duron MD Abs.Imm.Granulocyte 0.03 k/uL Normal 0.00-0.30 [facility] Comment on above: Performed By: #### T KHUSHBU LDLDIR #### [facility] [address] [place] [phone] Honing Job Setter: Reno Durno MD Abs.Neutrophil (Seg) 4.11 k/uL Normal 1.50-8.10 [facility] Comment on above: Performed By: #### T KHUSHBU LDLDIR #### [facility] [address] [place] [address] Honing Job Setter: Reno Duron MD Basophils/100 WBC (Bld) 1 % Normal 0-2 [facility] Comment on above: Performed By: #### T KHUSHBU LDLDIR #### [facility] [address] [place] [address] Honing Job Setter: Reno Duron MD Eosinophils (Bld) [#/Vol] 0.05 10*3/uL Normal 0.00-0.44 [facility] Comment on above: Performed By: #### T RIG LDLDIR #### [facility] [address] [place] [phone] Honing Job Setter: Reno Duron MD Eosinophils/100 WBC (Bld) 1 % Normal 1-4 [facility] Comment on above: Performed By: #### T RIG LDLDIR #### [facility] [address] [place] [phone] Honing Job Setter: Reno Duron MD Erythrocyte distribution width (RBC) [Ratio] 11.9 % Normal 11.8-14.4 [facility] Comment on above: Performed By: #### T RIG LDLDIR #### [facility] [address] [place] [phone] Honing Job Setter: Reno Duron MD Hematocrit (Bld) [Volume fraction] 40.2 % Low 40.7-50.3 [facility] Comment on above: Performed By: #### T RIG LDLDIR #### [facility] [address] [place] [address] Honing Job Setter: Reno Duron MD Hemoglobin (Bld) [Mass/Vol] 13.4 g/dL Normal 13.0-17.0 [facility] Comment on above: Performed By: #### T RIG LDLDIR #### [facility] [address] [place] [address] Honing Job Setter: Reno Duron MD Immature granulocytes/100 WBC (Bld) 1 % High 0 [facility] Comment on above: Performed By: #### T RIG, LDLDIR #### [facility] [address] [place] [address] Honing Job Setter: Reno Duron MD Lymphocytes (Bld) [#/Vol] 1.72 10*3/uL Normal 1.10-3.70 [facility] Comment on above: Performed By: #### T KHUSHBU LDLDIR #### [address] [address] Honing Job Setter: Reno Duron MD Lymphocytes/100 WBC (Bld) 27 % Normal 24-43 [facility] Comment on above: Performed By: #### T KHUSHBU LDLDIR #### [address] [address] Honing Job Setter: Reno Duron MD MCH (RBC) [Entitic mass] 28.9 pg Normal 25.2-33.5 [facility] Comment on above: Performed By: #### T KHUSHBU LDLDIR #### [address] [address] Honing Job Setter: Reno Duron MD MCHC (RBC) [Mass/Vol] 33.3 g/dL Normal 28.4-34.8 [facility] Comment on above: Performed By: #### T KHUSHBU LDLDIR #### [address] [address] Honing Job Setter: Reno Duron MD MCV (RBC) [Entitic vol] 86.6 fL Normal 82.6-102.9 [facility] Comment on above: Performed By: #### T KHUSHBU LDLDIR #### [address] [address] Honing Job Setter: Reno Duron MD Monocytes (Bld) [#/Vol] 0.54 10*3/uL Normal 0.10-1.20 [facility] Comment on above: Performed By: #### T KHUSHBU LDLDIR #### [address] [address] Honing Job Setter: Reno Duron MD Monocytes/100 WBC (Bld) 8 % Normal 3-12 [facility] Comment on above: Performed By: #### T RIG, LDLDIR #### [address] [address] Honing Job Setter: Reno Duron MD Neutrophil (Seg) 62 % Normal 36-65 [facility] Comment on above: Performed By: #### T RIG LDLDIR #### [address] [address] Honing Job Setter: Reno Duron MD NRBC Automated 0.0 per [address] [facility] Comment on above: Performed By: #### T RIG LDLDIR #### [address] [address] Honing Job Setter: Reno Duron MD Platelet mean volume (Bld) [Entitic vol] 9.1 fL Normal 8.1-13.5 [facility] Comment on above: Performed By: #### T RIG LDLDIR #### [address] [address] Honing Job Setter: Reno Duron MD Platelets (Bld) [#/Vol] 250 10*3/uL Normal 138-453 [facility] Comment on above: Performed By: #### T RIG LDLDIR #### [address] [address] Honing Job Setter: Reno Duron MD RBC (Bld) [#/Vol] 4.64 10*6/uL Normal 4.21-5.77 [facility] Comment on above: Performed By: #### T RIG LDLDIR #### [address] [address] Honing Job Setter: Reno Duron MD WBC (Bld) [#/Vol] 6.5 10*3/uL Normal 3.5-11.3 [facility] Comment on above: Performed By: #### T RIG LDLDIR #### [address] [place] [address] Honing Job Setter: Reno Duron MD UA w/Reflex Cultureon 2022 Bilirubin, SemiQt,Ur Negative Normal NEG [facility] Comment on above: Performed By: #### T RIG, LDLDIR #### [facility] [address] [place] [address] Honing Job Setter: Reno Duron MD Blood, Urine Negative Normal NEG [facility] Comment on above: Performed By: #### T RIG, LDLDIR #### [facility] [address] [place] [address] Honing Job Setter: Reno Duron MD Clarity (U) Clear Normal CLEAR [facility] Comment on above: Performed By: #### T RIG, LDLDIR #### [facility] [address] [place] [address] Honing Job Setter: Reno Duron MD Color (U) Yellow Normal YEL [facility] Comment on above: Performed By: #### T RIG, LDLDIR #### [address] [address] Honing Job Setter: Reno Duron MD Glucose Ql (U) Negative Normal NEG [facility] Comment on above: Performed By: #### T RIG, LDLDIR #### [facility] [address] [place] [address] Honing Job Setter: Reno Duron MD Ketones Ql (U) Negative Normal NEG [facility] Comment on above: Performed By: #### T RIG, LDLDIR #### [address] [address] Honing Job Setter: Reno Duron MD Leukocyte esterase Test strip Ql (U) TRACE Abnormal NEG [facility] Comment on above: Performed By: #### T RIG, LDLDIR #### [facility] [address] [place] [address] Honing Job Setter: Reno Duron MD Nitrite,Ur Negative Normal NEG [facility] Comment on above: Performed By: #### T RIG LDLDIR #### [address] [address] Honing Job Setter: Reno Duron MD PH,Ur 6.0 Normal 5.0-9.0 [facility] Comment on above: Performed By: #### T RIG LDLDIR #### [address] [address] Honing Job Setter: Reno Duron MD Protein Ql (U) Negative Normal NEG [facility] Comment on above: Performed By: #### T RIG LDLDIR #### [facility] [address] [place] [address] Honing Job Setter: Reno Duron MD Spec. Touchet,Ur <1.005 Low 1.010-1.020 [facility] Comment on above: Performed By: #### T RIG LDLDIR #### [address] [address] Honing Job Setter: Reno Duron MD Urobilinogen,Ur Normal Normal 0.0-1.0 [facility] Comment on above: Performed By: #### T RIG LDLDIR #### [address] [address] Honing Job Setter: Reno Duron MD Urinalysis,Microon 3 Epithelial cells LM Ql (Urine sed) 0 TO 2 Normal 0-5 [facility] Comment on above: Performed By: #### T RIG LDLDIR #### [address] [address] Honing Job Setter: Reno Duron MD Urine RBC's 0 TO 2 Normal 0-2 [facility] Comment on above: Performed By: #### T RIG LDLDIR #### [facility] [address] [place] [address] [phone] Honing Job Setter: Reno Duron MD Urine WBC's 0 TO 2 Normal 0-5 [facility] Comment on above: Performed By: #### T KHUSHBU LDLDIR #### [facility] [address] [place] [address] Honing Job Setter: Reno Duron MD Surgical Pathology Reporton 10-02-2023 Surgical Pathology Report (NOTE) Path Number: [id number] -- Diagnosis -- A. STOMACH, ANTRUM, BIOPSIES: - MILD CHRONIC GASTRITIS. - NEGATIVE FOR HELICOBACTER PYLORI INFECTION AND INTESTINAL METAPLASIA. B. ESOPHAGUS AT 40 CM, BIOPSY: - BENIGN PROXIMAL GASTRIC MUCOSA WITH INTESTINAL (GOBLET CELL) METAPLASIA AND MILD TO MODERATE CHRONIC INFLAMMATION. - BENIGN SQUAMOUS MUCOSA. - NEGATIVE FOR DYSPLASIA AND MALIGNANCY. C. ESOPHAGUS AT 38 CM, BIOPSIES: - BENIGN PROXIMAL GASTRIC MUCOSA WITH INTESTINAL (GOBLET CELL) METAPLASIA AND MILD CHRONIC INFLAMMATION. - BENIGN SQUAMOUS MUCOSA. - NEGATIVE FOR DYSPLASIA AND MALIGNANCY. D. ESOPHAGUS AT 36 CM, BIOPSIES: - BENIGN PROXIMAL GASTRIC MUCOSA WITH INTESTINAL (GOBLET CELL) METAPLASIA AND MILD CHRONIC INFLAMMATION. - BENIGN SQUAMOUS MUCOSA. - NEGATIVE FOR DYSPLASIA AND MALIGNANCY. E. ASCENDING COLON, BIOPSY: - ADENOMATOUS POLYP (TUBULAR ADENOMA). Paramjit Munoz M.D. Electronically Signed Out 10/03/2023 Clinical Information Pre-Op Diagnosis: COLON CANCER SCREENING Operative Findings: GASTRIC ANTRUM BIOPSIES; DONG'S ESOPHAGUS BIOPSIES AT 40 CM; ESOPHAGEAL BIOPSIES AT 38 CM; ESOPHAGEAL BIOPSIES AT 36 CM; ASCENDING COLON POLYP Operation Performed: COLONOSCOPY POLYPECTOMY SNARE/COLD BIOPSY; EGD BIOPSY kb Source of Specimen A: GASTRIC ANTRUM BIOPSY B: BARRETTS ESOPHAGEAL BX AT 40CM C: ESOPHAGEAL BX AT 38CM D: ESOPHAGEAL BX AT 36CM E: ASCENDING COLON POLYP Gross Description A. ALIN LIGHT GASTRIC ANTRUM BIOPSIES Received in formalin are two clemente-white tissue fragments from 0.5 to 0.7 cm and are 0.7 x 0.4 x 0.2 cm in aggregate. Entirely 1cs. B. ALIN LIGHT DONG'S ESOPHAGUS BIOPSY AT 40 CM Received in formalin is one clemente-white tissue fragment, 0.7 x 0.3 x 0.2 cm. Entirely 1cs. C. CHRISTOPHER KULDEEP, ESOPHAGEAL BIOPSIES AT 38 CM Received in formalin are two clemente-white tissue fragments from 0.2 to 0.5 cm and are 0.7 x 0.2 x 0.2 cm in aggregate. Entirely 1cs. D. ALIN LIGHT, ESOPHAGEAL BIOPSIES AT 36 CM Received in formalin are three clemente-white tissue fragments from 0.1 to 0.7 cm and are 0.7 x 0.4 x 0.1 cm in aggregate. Entirely 1cs. E. ALIN LIGHT, ASCENDING COLON POLYP Received in formalin is one clemente-white tissue fragment, 0.6 x 0.4 x 0.2 cm. Entirely 1cs. jj tm RAMYA/kb2:10/02/2023 Microscopic Description A-E. Microscopic examination performed. Processing Lab: [address] [id number] Interpretation Performed at [address] [id number] SURGICAL PATHOLOGY CONSULTATION Patient Name: ALIN LIGHT [facility] Rec: [id number] [facility] ANATOMIC PATHOLOGY [address] [place] [phone] [facility] C diff Ag + Toxinon 09-10-20 C diff Ag + Toxin Negative Normal NEG [facility] Comment on above: Result Comment: No C . difficile antigen and Toxin Detected. Performed By: #### T KHUSHBU LDLDIR #### [facility] [employer] [address] [place] [id number] Honing Job Setter: Reno Duron MD Specimen Description .FECES [facility] Comment on above: Performed By: #### T RIG LDLDIR #### [facility] [address] [place] [address] Honing Job Setter: Reno Duron MD Nuclear stress test with justino cardial perfusionon 07-06-2023 Baseline Diastolic BP 80 mmHg [facility] [employer] Baseline HR 71 bpm [facility] Baseline Systolic BP 116 mmHg [facility] Nuc Stress EF 81 % [facility] Recovery Stage 1 BP 120/74 mmHg ALTAGRACIA S ECOJESSY [facility] Recovery Stage 1 Duration 0 min:sec ALTAGRACIA SECMARIBELL [facility] Recovery Stage 1 HR 98 bpm [facility] Recovery Stage 2 Duration 1 min:sec [facility] Recovery Stage 2 HR 83 bpm [facility] Recovery Stage 3 Duration 3 min:sec [facility] Recovery Stage 3 HR 75 bpm [facility] Recovery Stage 4 BP 114/68 mmHg ALTAGRACIA S [facility] Recovery Stage 4 Duration 5 min:sec [facility] Recovery Stage 4 HR 71 bpm [facility] Stress Diastolic BP 74 mmHg [facility] Stress Peak HR 100 bpm ALTAGRACIA SECOUR S [facility] Stress Percent HR Achieved 60 % [facility] Stress Rate Pressure Product 62731 bpm*mmHg [facility] Stress Systolic BP 120 mmHg [facility] Stress Target HR 167 bpm [facility] ECG: Resting ECG demonstrates normal sinus rhythm. Stress Test: A pharmacological stress test was performed using lexiscan. Low level exercise was used during the pharmacological stress test. The patient reported dyspnea and headaches during the stress test. Blood pressure demonstrated a normal response and heart rate demonstrated a normal response to stress. The patient's heart rate recovery was normal. ECG: The ECG was negative for ischemia. Stress Function: Left ventricular function post-stress is normal. Post-stress ejection fraction is 81%. The stress end diastolic cavity size is normal. Perfusion Defect: There is a mild severity left ventricular stress perfusion defect that is small to medium in size present in the anterior, anteroseptal and anterolateral segment(s). The defect appears to be caused by soft tissue. The possibility of artifact cannot be excluded. Overall, these results are most consistent with a low to intermediate risk for significant coronary artery disease. Depending on the patient symptoms and level of clinical suspicion, aggressive medical management vs. additional testing by coronary angiography my be indicated. The sensitivity for detecting ischemia on this test may have been reduced due the patient being on a calcium channel kandi Resting ECG The ECG shows sinus rhythm. Stress Findings A pharmacological stress test was performed using lexiscan. Low level exercise was used during the pharmacological stress test. The patient reported dyspnea and headaches during the stress test. Blood pressure demonstrated a normal response and heart rate demonstrated a normal response to stress. The patient's heart rate recovery was normal. Stress ECG There were no arrhythmias during stress. No significant ST changes noted. The ECG was negative for ischemia. Nuclear Study Quality Nuclear Cardiac SPECT gated stress then rest with tomographic imaging/tomography utilized for the myocardial perfusion procedure. Lexiscan was used as the stressing method and agent. (Lexiscan given via a 10 - 20 sec injection). This Single Photon Emission Computer Tomography (SPECT) study utilized tomographic imaging/tomography for the tomographic myocardial perfusion imaging performed during this study. Overall image quality is good. Perfusion Comments Prone images were obtained. Prone imaging was helpful in correcting soft tissue attenuation. Perfusion Defect There is a mild severity left ventricular stress perfusion defect that is small to medium in size present in the anterior, anteroseptal and anterolateral segment(s). The defect appears to be caused by soft tissue. The possibility of artifact cannot be excluded. Stress Function Comments Left ventricular function post-stress is normal. Post-stress ejection fraction is 81%. The stress end diastolic cavity size is normal. BS CV RPACS STRESS [facility]ENTER[facility] Ad[facility]age Nuclear stress test with justino cardial perfusionon 07-05-2023 Radiology Study observation (narrative) [facility] [employer] XR CHEST (2 VW)on 12-09-2019 XR CHEST (2 VW) PROCEDURE: XR CHEST (2 VW) CLINICAL INFORMATION: Cough present for greater than 3 weeks COMPARISON: 07/21/2019 TECHNIQUE: PA and lateral chest x-ray FINDINGS: The cardiomediastinal silhouette appears within normal limits. No focal consolidation, pleural effusion or pneumothorax is seen. No acute osseous abnormalities are demonstrated. Evidence of prior vertebral augmentation is noted at the T5-T9 levels. IMPRESSION: 1. No acute cardiopulmonary disease. This report has been created using voice recognition software. It may contain minor errors which are inherent in voice recognition technology. Final report electronically signed by Dr. Evan Bhatia on 12/09/2019 2:47 PM Interpreted by: Kp Bhatia MD Signed by: Kp Bhatia MD 12/09/19 Final result Normal [facility] XR HIP 2-3 VW W PELVIS RIGHT on 11-17-2019 XR HIP 2-3 VW W PELVIS RIGHT PROCEDURE: XR HIP 2-3 VW W PELVIS RIGHT CLINICAL INFORMATION: Right hip pain COMPARISON: No prior study. TECHNIQUE: A single AP view of the pelvis was obtained in addition to AP and frog-leg views of the right hip. FINDINGS: The hip joints, sacroiliac joints, and bones of the pelvis are intact. Normal abduction of right hip is demonstrated. A small shrapnel fragment projects along the lateral aspect of the lower third of the right iliac bone. A neurostimulator is present on the left side of the pelvis with leads extending cephalad to some unidentified location. Several phleboliths are present in the pelvis. IMPRESSION: 1. Small shrapnel fragment. Neurostimulator. 2. Study otherwise unremarkable. This report has been created using voice recognition software. It may contain minor errors which are inherent in voice recognition technology. Final report electronically signed by Dr. Octavio Seymour on 11/17/2019 4:08 PM Interpreted by: Octavio Seymour MD Signed by: Octavio Seymour MD 11/17/19 Final result Normal [facility] XR KNEE RIGHT (MIN 4 VIEWS)o n 11-17-2019 XR KNEE RIGHT (MIN 4 VIEWS) PROCEDURE: XR KNEE RIGHT (MIN 4 VIEWS) CLINICAL INFORMATION: Chronic pain of right knee, Chronic pain of right knee COMPARISON: No prior study. TECHNIQUE: 4 views of the right knee were obtained. FINDINGS: No fracture or dislocation is seen. There is no foreign body. Minimal degenerative spurring is seen along the posterior aspect of the patella. IMPRESSION: Minimal degenerative spurring of the patella. Otherwise normal right knee. This report has been created using voice recognition software. It may contain minor errors which are inherent in voice recognition technology. Final report electronically signed by Dr. Octavio Seymour on 11/17/2019 4:48 PM Interpreted by: Octavio Seymour MD Signed by: Octavio Seymour MD 11/17/19 Final result Normal [facility] Vital Signs Date Time Vital Sign Value Performing Clinician Facility 09-05-2024 18:28-0500 Body mass index (BMI) [Ratio] 30.71 kg/m2 Dariusz Lambert MD Work Phone: [facility] 09-05-2024 18:28-0500 Body temperature 99.7 [degF] Dariusz Lambert MD Work Phone: [facility] 09-05-2024 18:28-0500 Body weight 97.07 kg Dariusz Lambert MD Work Phone: [employer] 09-05-2024 18:28-0500 Diastolic blood pressure 90 mm[Hg] Dariusz Lambert MD Work Phone: [facility] 09-05-2024 18:28-0500 Heart rate 95 /min Dariusz Lambert MD Work Phone: [facility] 09-05-2024 18:28-0500 Respiratory rate 16 /min Dariusz Lambert MD Work Phone: [facility] 09-05-2024 18:28-0500 SaO2% (BldA) [Mass fraction] 95 % Dariusz Lambert MD Work Phone: [facility] 09-05-2024 18:28-0500 Systolic blood pressure 136 mm[Hg] Dariusz Lambert MD Work Phone: [facility] 08-28-2024 17:33-0500 SaO2% (BldA) [Mass fraction] 100 % ELIANA SPRINGER [facility] Comment on above: Order Comment: Specimen Type: ARTERIAL B LOOD SPECIMENOrdering Facility: [facility] Address: [address] [place] [address] Performed By: #### A LLBG ####[facility] [id number] [address] STATES OF [facility] 08-28-2024 16:01-0500 SaO2% (BldA) [Mass fraction] 100 % ELIANA GIAN [facility] Comment on above: Order Comment: Specimen Type: ARTERIAL B LOOD SPECIMENOrdering Facility: [facility] Address: [address] [place] [address] Performed By: #### A LLMG ####[facility] LABIA [id number] [address] [place] 08-28-2024 14:06-0500 SaO2% (BldA) [Mass fraction] 99 % ELIANA SPRINGER [facility] Comment on above: Order Comment: Specimen Type: ARTERIAL B LOOD SPECIMENOrdering Facility: [facility] Address: [address] [place] [address] Performed By: #### A LLMG ####[facility] LABCLIA [id number] [facility] HOSPITALJhonathan [id number] [id number] [place] 08-22-2024 11:24-0400 Body height 177.8 cm Pac 7 Work Phone: [facility] 08-22-2024 11:24-0400 Body mass index (BMI) [Ratio] 30.37 kg/m2 Pac 7 Work Phone: [facility] 08-22-2024 11:24-0400 Body temperature 98.29 [degF] Pac 7 Work Phone: [facility] 08-22-2024 11:24-0400 Body weight 96 kg Pac 7 Work Phone: [facility] 08-22-2024 11:24-0400 Diastolic blood pressure 78 mm[Hg] Pac 7 Work Phone: [facility] 08-22-2024 11:24-0400 Heart rate 78 /min Pac 7 Work Phone: [facility] 08-22-2024 11:24-0400 SaO2% (BldA) [Mass fraction] 98 % Pac 7 Work Phone: [facility] 08-22-2024 11:24-0400 Systolic blood pressure 125 mm[Hg] Pac 7 Work Phone: [facility] 08-11-2024 11:56-0400 Body height 177.8 cm Kristyn Miller MD Work Phone: [facility] 08-11-2024 11:56-0400 Body mass index (BMI) [Ratio] 30.71 kg/m2 Kristyn Miller MD [facility] 08-11-2024 11:56-0400 Body temperature 98.2 [degF] Kristyn Miller MD Work Phone: [employer] 08-11-2024 11:56-0400 Body weight 97.07 kg Kristyn Miller MD Work Phone: [facility] 08-11-2024 11:56-0400 Diastolic blood pressure 82 mm[Hg] Kristyn Ring Work Phone: [facility] 08-11-2024 11:56-0400 Heart rate 68 /min Kristyn Miller MD Work Phone: [facility] 08-11-2024 11:56-0400 Respiratory rate 16 /min Kristyn Miller MD Work Phone: [facility] 08-11-2024 11:56-0400 SaO2% (BldA) [Mass fraction] 97 % Kristyn Miller MD Work Phone: [facility] 08-11-2024 11:56-0400 Systolic blood pressure 140 mm[Hg] Kristyn Miller MD Work Phone: [employer] 08-08-2024 13:21-0400 Body temperature 97.7 [degF] [employer] CARROTER - CLINICAL DOCUMENTATION NURSE Work Phone: [facility] 08-08-2024 13:21-0400 Diastolic blood pressure 79 mm[Hg] [employer] CARROTER - CLINICAL DOCUMENTATION NURSE Work Phone: [facility] 08-08-2024 13:21-0400 Heart rate 87 /min [employer] CARROTER - CLINICAL DOCUMENTATION NURSE Work Phone: [facility] 08-08-2024 13:21-0400 Respiratory rate 16 /min [employer] CARROTER - CLINICAL DOCUMENTATION NURSE Work Phone: [facility] 08-08-2024 13:21-0400 SaO2% (BldA) [Mass fraction] 97 % [employer] CARROTER [employer] Work Phone: [facility] 08-08-2024 13:21-0400 Systolic blood pressure 129 mm[Hg] Eliana Springer CARROTER - CLINICAL DOCUMENTATION NURSE Work Phone: [facility] 08-05-2024 17:30-0400 Body height 177.8 cm Sofia Smith MD Work Phone: [facility] 08-05-2024 17:30-0400 Body mass index (BMI) [Ratio] 30.71 kg/m2 Sofia Smith MD Work Phone: [facility] 08-05-2024 17:30-0400 Body temperature 98.2 [degF] Sofia Smith MD Work Phone: [facility] 08-05-2024 17:30-0400 Body weight 97.07 kg Sofia Smith MD Work Phone: [facility] 08-05-2024 17:30-0400 Diastolic blood pressure 82 mm[Hg] Sofia Smith MD Work Phone: [facility] 08-05-2024 17:30-0400 Heart rate 84 /min Sofia Smith MD Work Phone: [facility] 08-05-2024 17:30-0400 Respiratory rate 16 /min Sofia Smith MD Work Phone: [facility] 08-05-2024 17:30-0400 SaO2% (BldA) [Mass fraction] 95 % Sofia Smith MD Work Phone: [facility] 08-05-2024 17:30-0400 Systolic blood pressure 133 mm[Hg] Sofia Smith MD Work Phone: [facility] 07-28-2024 08:50-0400 Diastolic blood pressure 69 mm[Hg] Sheyla Mensah MD Work Phone: [facility] 07-28-2024 08:50-0400 Heart rate 54 /min Sheyla Mensah MD Work Phone: [facility] 07-28-2024 08:50-0400 Respiratory rate 16 /min Sheyla Mensah MD Work Phone: [facility] 07-28-2024 08:50-0400 SaO2% (BldA) [Mass fraction] 98 % Sheyla Mensah MD Work Phone: [facility] 07-28-2024 08:50-0400 Systolic blood pressure 115 mm[Hg] Sheyla Ring Work Phone: [facility] 07-28-2024 08:24-0400 Body temperature 97.5 [degF] Sheyla Mensah MD Work Phone: [facility] 07-28-2024 07:36-0400 Body height 177.8 cm Sheyla Mensah MD Work Phone: [facility] 07-28-2024 07:36-0400 Body mass index (BMI) [Ratio] 30.71 kg/m2 Sheyla Mensah MD Work Phone: [facility] 07-28-2024 07:36-0400 Body weight 97.07 kg Sheyla Mensah MD Work Phone: [facility] 07-22-2024 14:36-0400 Body temperature 97.7 [degF] SARAH Jacobson MD Work Phone: [facility] 07-22-2024 14:36-0400 Body weight 97.5 kg SARAH Jacobson MD Work Phone: [facility] 07-22-2024 14:36-0400 Diastolic blood pressure 83 mm[Hg] SARAH Jacobson MD Work Phone: [facility] 07-22-2024 14:36-0400 Heart rate 79 /min SARAH Jacobson MD Work Phone: [facility] 07-22-2024 14:36-0400 Respiratory rate 20 /min SARAH Jacobson MD Work Phone: [facility] 07-22-2024 14:36-0400 SaO2% (BldA) [Mass fraction] 98 % SARAH Jacobson MD Work Phone: [facility] 07-22-2024 14:36-0400 Systolic blood pressure 146 mm[Hg] SARAH Jacobson MD Work Phone: [facility] 04-26-2024 11:33-0400 Body temperature 98.29 [degF] Max Delong Jr., MD Work Phone: [facility] [employer] 04-26-2024 11:33-0400 Diastolic blood pressure 87 mm[Hg] Max London MD Work Phone: [facility] [employer] 04-26-2024 11:33-0400 Heart rate 78 /min Max Delong Jr., MD Work Phone: [facility] [employer] 04-26-2024 11:33-0400 Respiratory rate 18 /min Max Delong Jr., MD Work Phone: [facility] [employer] 04-26-2024 11:33-0400 SaO2% (BldA) [Mass fraction] 99 % Max Delong Jr., MD Work Phone: [facility] [employer] 04-26-2024 11:33-0400 Systolic blood pressure 131 mm[Hg] Max Delong Jr., MD Work Phone: [facility] [employer] 03-17-2024 16:15-0400 Diastolic blood pressure 59 mm[Hg] Tegan Arita D O Work Phone: [facility] [employer] 03-17-2024 16:15-0400 Heart rate 57 /min Tegan Arita DO Work Phone: [employer] 03-17-2024 16:15-0400 Respiratory rate 13 /min Tegan Arita DO Work Phone: [facility] [employer] 03-17-2024 16:15-0400 SaO2% (BldA) [Mass fraction] 96 % Tegan Arita DO Work Phone: [employer] 03-17-2024 16:15-0400 Systolic blood pressure 117 mm[Hg] Tegan Galvanbal DO Work Phone: [facility] 03-17-2024 13:56-0400 Body height 177.8 cm Tegan Arita DO Work Phone: [facility]ENTERConstruction [facility] Technologies [facility] 03-17-2024 13:56-0400 Body mass index (BMI) [Ratio] 30.56 kg/m2 Tegan Arita DO Work Phone: [facility] 03-17-2024 13:56-0400 Body temperature 98.4 [degF] Tegan Galvanbal DO Work Phone: [facility] 03-17-2024 13:56-0400 Body weight 96.62 kg Tegan Arita DO Work Phone: [facility] 01-21-2024 13:08-0400 Body height 177.8 cm Joana Stratton MD Work Phone: [facility] [employer] 01-21-2024 13:08-0400 Body mass index (BMI) [Ratio] 29.41 kg/m2 Joana Stratton MD Work Phone: [facility] [employer] 01-21-2024 13:08-0400 Body weight 92.99 kg Joana Stratton MD [facility] 01-21-2024 13:08-0400 Diastolic blood pressure 77 mm[Hg] Joana Ring [facility] 01-21-2024 13:08-0400 Heart rate 73 /min Joana Stratton MD [facility] 01-21-2024 13:08-0400 Respiratory rate 16 /min Joana Stratton MD Work Phone: [facility] [employer] 01-21-2024 13:08-0400 Systolic blood pressure 124 mm[Hg] Joana Stratton MD Work Phone: [facility] 12-24-2023 12:46-0500 Body height 177.8 cm Joana Stratton MD Work Phone: [facility] 12-24-2023 12:46-0500 Body mass index (BMI) [Ratio] 29.41 kg/m2 Joana Stratton MD Work Phone: [facility] 12-24-2023 12:46-0500 Body weight 92.99 kg Joana Stratton MD Work Phone: [facility] 12-24-2023 12:46-0500 Diastolic blood pressure 85 mm[Hg] Joana Ring Work Phone: [facility] 12-24-2023 12:46-0500 Heart rate 83 /min Joana Stratton MD Work Phone: [facility] 12-24-2023 12:46-0500 Respiratory rate 18 /min Joana Stratton MD Work Phone: [facility] 12-24-2023 12:46-0500 Systolic blood pressure 139 mm[Hg] Joana Stratton MD Work Phone: [facility] 11-21-2023 14:09-0500 Body height 177.8 cm Fabiola Romano CARROTER-CLINICAL DOCUMENTATION NURSE Work Phone: [facility] 11-21-2023 14:09-0500 Body mass index (BMI) [Ratio] 29.41 kg/m2 Fabiola Romano APRN-CLINICAL DOCUMENTATION NURSE Work Phone: [facility] 11-21-2023 14:09-0500 Body weight 92.99 kg Fabiola Romano APRN-CLINICAL DOCUMENTATION NURSE Work Phone: [facility] 11-21-2023 14:09-0500 Diastolic blood pressure 78 mm[Hg] Fabiola Romano CARROTER-CLINICAL DOCUMENTATION NURSE Work Phone: [facility] 11-21-2023 14:09-0500 Heart rate 84 /min Afbiola Romano CARROTER-CLINICAL DOCUMENTATION NURSE [facility] 11-21-2023 14:09-0500 Respiratory rate 18 /min Fabiola Romano CARROTER-CLINICAL DOCUMENTATION NURSE [facility] 11-21-2023 14:09-0500 Systolic blood pressure 121 mm[Hg] Fabiola Romano CARROTER-CLINICAL DOCUMENTATION NURSE [facility] 10-24-2023 13:45-0500 Body height 177.8 cm Fabiola Romano CARROTER-CLINICAL DOCUMENTATION NURSE [facility] 10-24-2023 13:45-0500 Body mass index (BMI) [Ratio] 29.41 kg/m2 Fabiola Romano CARROTER-CLINICAL DOCUMENTATION NURSE [facility] 10-24-2023 13:45-0500 Body weight 92.99 kg Fabiola Romano CARROTER-CLINICAL DOCUMENTATION NURSE [facility] 10-24-2023 13:45-0500 Diastolic blood pressure 85 mm[Hg] Fabiola Romano CARROTER-CLINICAL DOCUMENTATION NURSE [facility] 10-24-2023 13:45-0500 Heart rate 82 /min Fabiola Romano CARROTER-CLINICAL DOCUMENTATION NURSE [facility] 10-24-2023 13:45-0500 Respiratory rate 18 /min Fabiola Romano CARROTER-CLINICAL DOCUMENTATION NURSE [facility] 10-24-2023 13:45-0500 Systolic blood pressure 128 mm[Hg] Fabiola Romano CARROTER-CLINICAL DOCUMENTATION NURSE Work Phone: [facility] Encounters Encounter Date Encounter Type Care Provider Facility Start: 10-02-2024 End: 10-02-2024 Telephone encounter Damion Bravo MD Work Phone: Endocrinology Comment on above: Forms ([facility]O [facility] Insulin pump) Start: 10-02-2024 End: 10-02-2024 ambulatory Dario Hines RN Work Phone: [facility] Comment on above: Post-pancreatectomy diabetes (HCC) (Primary Dx) Start: 10-02-2024 End: 10-02-2024 Telemedicine consultation with patient Dario Hines RN Work Phone: [facility] Start: 09-30-2024 End: 09-30-2024 ambulatory ELIANA SPRINGER Facility:[facility] Start: 09-30-2024 End: 09-30-2024 Patient encounter procedure R Kassidy Jacobson MD Work Phone: General Surgery Comment on above: IPMN (intraductal pa pillary mucinous neoplasm) (Primary Dx) Start: 09-26-2024 End: 09-26-2024 Telephone encounter Damion Bravo MD Work Phone: Endocrinology Comment on above: Insulin pump start t raining Start: 09-24-2024 End: 09-24-2024 ambulatory Damion Bravo MD Work Phone: Endocrinology Comment on above: Regarding Pump and S upplies Start: 09-24-2024 End: 09-24-2024 E-mail encounter from caregiver Damion Bravo MD Work Phone: Endocrinology Start: 09-24-2024 End: 09-24-2024 Telephone encounter Damion Bravo MD Work Phone: Endocrinology Comment on above: Forms Start: 09-19-2024 End: 09-19-2024 Refill Damion Bravo MD Work Phone: Endocrinology Comment on above: Refill Request Start: 09-15-2024 End: 09-15-2024 Telephone encounter Damion Bravo MD Work Phone: Endocrinology Comment on above: Forms Start: 09-11-2024 End: 09-11-2024 Refill Jesus Jacobson MD Work Phone: General Surgery Start: 09-09-2024 End: 09-09-2024 ambulatory Damion Bravo MD Work Phone: Endocrinology Comment on above: Post-pancreatectomy diabetes (HCC) (Primary Dx) Start: 09-09-2024 End: 09-09-2024 Telemedicine consultation with patient Damion Bravo MD Work Phone: Endocrinology Start: 09-09-2024 End: 09-19-2024 Telephone encounter Damion Bravo MD Work Phone: Endocrinology Comment on above: Patient Update Insurance Authorizat ion (Insulin Pump [[facility]]) Start: 09-05-2024 End: 09-05-2024 Emergency department patient visit Dariusz Lambert MD Work Phone: [facility] ED Comment on above: Strain of neck muscl e, initial encounter (Primary Dx) Start: 09-05-2024 End: 09-05-2024 Orders Only Kelley Fowler MD Work Phone: General Surgery Comment on above: Acute post-operative pain (Primary Dx) Patient Update; Anneliese ent Question Start: 08-28-2024 End: 08-28-2024 Chart abstracting Manfred Mason Work Phone: Hematology/Oncology Comment on above: Research (IRB [id number]) Start: 08-28-2024 End: 09-04-2024 Evaluation and management of inpatient Jesus JACOBSON Facility:[facility] Start: 08-22-2024 End: 08-22-2024 Patient encounter procedure Emilee Hensley PhD Work Phone: General Surgery Comment on above: IPMN (intraductal pa pillary mucinous neoplasm); Preoperative examination Start: 08-22-2024 Encounter for other preprocedural examination EMILEE HENSLEY [facility] Start: 08-22-2024 End: 08-22-2024 Nursing evaluation of patient and report Ligia Kerns RN Work Phone: General Surgery Comment on above: Preoperative examina tion (Primary Dx) Start: 08-22-2024 End: 08-22-2024 Preprocedural examination done Ligia Kerns RN Work Phone: [facility] Work Phone: Start: 08-22-2024 End: 08-22-2024 Subsequent hospital visit by physician Xr Chest Main A21 Radiology Comment on above: IPMN (intraductal pa pillary mucinous neoplasm) [D49.0] Start: 08-22-2024 End: 08-22-2024 ambulatory Jesus JCAOBSON Facility:[facility] Start: 08-22-2024 End: 08-22-2024 ambulatory [facility] Facility:[facility] Start: 08-22-2024 End: 08-22-2024 Admission to establishment Pac Main 7 Work Phone: Pre Anesthesia Start: 08-22-2024 End: 08-22-2024 Anesthesia consultation [facility] Main 7 Work Phone: Pre Anesthesia Comment on above: Severe persistent as thma, unspecified whether complicated (Primary Dx); 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); Dong's esophagus with dysplasia; Other chronic pancreatitis (HCC); Fatty liver; History of bowel resection; Preoperative examination Start: 08-22-2024 End: 08-22-2024 Preprocedural examination done [facility] Main Work Phone: [facility] Work Phone: Start: 08-22-2024 End: 08-22-2024 ambulatory [facility] Facility:[facility] Start: 08-22-2024 End: 08-22-2024 ambulatory Damion Bravo MD Work Phone: Endocrinology Comment on above: Post-pancreatectomy diabetes (HCC) (Primary Dx) Start: 08-22-2024 End: 08-22-2024 Telemedicine consultation with patient Damion Bravo MD Work Phone: Endocrinology Start: 08-14-2024 End: 08-14-2024 Orders Only Ligia Kerns RN Work Phone: General Surgery Comment on above: IPMN (intraductal pa pillary mucinous neoplasm) (Primary Dx) 08/22/2024 pre op 08/28/2024 CURE (Total panc) Start: 08-14-2024 End: 08-14-2024 Preprocedural examination done Jesus Jacobson MD Work Phone: [facility] Start: 08-11-2024 End: 08-11-2024 Emergency department patient visit Kristyn D Martus MD Work Phone: [facility] ED Comment on above: Left-sided chest wal l pain (Primary Dx); Rib contusion, left, sequela Start: 08-08-2024 End: 08-08-2024 Telephone encounter Jesus Jacobson MD Work Phone: General Surgery Comment on above: Patient Update Start: 08-08-2024 End: 08-08-2024 Emergency department patient visit ELIANA SPRINGER [facility] ED Comment on above: Chest wall contusion , left, initial encounter (Primary Dx); Strain of tendon of left half of anterior chest wall Start: 08-05-2024 End: 08-05-2024 Emergency department patient visit Sofia Smith MD Work Phone: [facility] ED Comment on above: Other chronic pancre atitis (HCC) (Primary Dx); Epigastric pain Start: 08-05-2024 End: 08-05-2024 Telephone encounter Ligia Kerns RN Work Phone: General Surgery Start: 08-04-2024 End: 08-04-2024 Refill Jesus Jacobson MD Work Phone: General Surgery Start: 07-30-2024 End: 08-04-2024 Telephone encounter Jesus Jacobson MD Work Phone: General Surgery Comment on above: Results; Patient Que stion Start: 07-28-2024 End: 07-28-2024 [facility] Facility:[facility] Start: 07-28-2024 End: 07-28-2024 Subsequent hospital visit by physician Sheyla Mensah MD Work Phone: Gastroenterology Comment on above: Cyst and pseudocyst of pancreas [K86.2, K86.3] Start: 07-24-2024 End: 07-24-2024 Telephone encounter Ligia Kerns RN Work Phone: General Surgery Start: 07-22-2024 End: 07-23-2024 Orders Only Ligia Kerns RN Work Phone: General Surgery Comment on above: Cyst and pseudocyst of pancreas (Primary Dx) IPMN (intraductal pa pillary mucinous neoplasm) (Primary Dx) Start: 07-21-2024 End: 07-21-2024 Telephone encounter Jesus Jacobson MD Work Phone: [facility] Comment on above: imaging (Pt is unabl e to get imaging for 06/26/24 US we do have reports no imaging tho ) Start: 07-17-2024 End: 07-17-2024 Telephone encounter Alin Bardales MD Work Phone: General Surgery Comment on above: On Site Manager - O ketan (Request for records) Clinic [facility] Start: 07-14-2024 End: 07-14-2024 [facility] Start: 07-14-2024 End: 07-14-2024 Subsequent hospital visit by physician Eliana Kenney CNP Work Phone: [facility] Laboratory Comment on above: Anemia, unspecified type; Vitamin D deficiency; Other fatigue; Prostate cancer screening Start: 07-01-2024 End: 07-01-2024 ambulatory Cristal X Oreusebio Facility:[facility] Start: 07-01-2024 End: 07-01-2024 Patient encounter procedure Cristal X Oreusebio [facility] Start: 06-26-2024 End: 06-26-2024 ambulatory LUIS F APONTE [facility] Start: 05-27-2024 ambulatory Eliana martins APRN-CLINICAL DOCUMENTATION NURSE Facility:[facility] Start: 05-24-2024 End: 05-24-2024 Evaluation and management of inpatient LAURI WOODY [facility] Start: 05-23-2024 ambulatory ELIANA SPRINGER [facility] Start: 05-23-2024 End: 05-24-2024 Emergency department patient visit Eliana Springer APRN-RAMSEY Facility:[facility] Start: 05-13-2024 End: 05-13-2024 [facility] Start: 05-12-2024 End: 05-12-2024 ambulatory Danica Conklin MD Facility:[facility] Start: 04-28-2024 End: 04-28-2024 ambulatory Eliana Springer CARROTER-CLINICAL DOCUMENTATION NURSE Facility:[facility] Start: 04-26-2024 End: 04-26-2024 Emergency department patient visit Max Delong MD Work Phone: [facility] ED Comment on above: Thoracic myofascial strain, initial encounter (Primary Dx); Left wrist sprain, initial encounter; Closed nondisplaced fracture of phalanx of left index finger, unspecified phalanx, initial encounter Start: 04-23-2024 End: 04-25-2024 ambulatory [facility] Start: 04-23-2024 End: 04-25-2024 Subsequent hospital visit by physician [facility] Scan Room [facility] Laboratory Comment on above: Cervical spinal sten osis Start: 04-14-2024 End: 04-14-2024 ambulatory Eliana Stacia Springer CARROTER-CLINICAL DOCUMENTATION NURSE Facility:[facility] Start: 04-03-2024 End: 04-05-2024 ambulatory [facility] Start: 04-02-2024 End: 04-02-2024 Emergency department patient visit [facility] Start: 03-26-2024 End: 03-26-2024 ambulatory FABIOLA ROMANO [facility] Start: 03-17-2024 End: 03-17-2024 Emergency department patient visit Tegan Arita DO Work Phone: [facility] ED Comment on above: Nonspecific chest pa in (Primary Dx) Start: 03-12-2024 End: 03-12-2024 ambulatory Eliana Springer CARROTER-CLINICAL DOCUMENTATION NURSE Facility:[facility] Start: 03-12-2024 End: 03-12-2024 ambulatory Eliana Springer CARROTER-CLINICAL DOCUMENTATION NURSE [facility] Start: 02-25-2024 End: 02-25-2024 ambulatory JOANA STRATTON [facility] Start: 02-07-2024 End: 02-08-2024 Evaluation and management of inpatient IRVIN OBRIEN [facility] Start: 01-31-2024 End: 02-02-2024 ambulatory ELIANA Palomo GIAN [facility] Start: 01-31-2024 End: 02-02-2024 Subsequent hospital visit by physician Eliana Springer APRN - RAMSEY Work Phone: [facility] Radiology Start: 01-21-2024 End: 01-21-2024 ambulatory [facility] Start: 01-21-2024 End: 01-21-2024 Office outpatient visit 25 minutes Joana Stratton MD Work Phone: [facility] Comment on above: Thoracic spondylosis without myelopathy (Primary Dx); Postlaminectomy syndrome, lumbar region; Encounter for long-term opiate analgesic use Start: 01-21-2024 End: 01-21-2024 ambulatory [facility] Start: 01-15-2024 End: 01-15-2024 Evaluation and management of inpatient MIGDALIA [facility] Start: 01-14-2024 End: 01-15-2024 Evaluation and management of inpatient [facility] Start: 12-24-2023 End: 12-24-2023 Office outpatient visit 25 minutes Joana Stratton MD Work Phone: [facility] Comment on above: Thoracic spondylosis without myelopathy (Primary Dx); Postlaminectomy syndrome, lumbar region; Encounter for long-term opiate analgesic use Start: 12-24-2023 End: 12-24-2023 ambulatory [facility] Start: 11-30-2023 End: 11-30-2023 ambulatory ELIANA Stacia [facility] Start: 11-30-2023 End: 11-30-2023 Subsequent hospital visit by physician Eliana Springer APRN - RAMSEY Work Phone: [facility] Laboratory Comment on above: Other fatigue; Chronic pain syndrome; Anemia, unspecified type; Low vitamin D level Start: 11-27-2023 Documentation procedure Valentina neri RN [facility] Start: 11-26-2023 End: 11-27-2023 Evaluation and management of inpatient JOANA Nickerson [facility] Start: 11-21-2023 End: 11-21-2023 Office outpatient visit 25 minutes Fabiola Romano CARROTER-CLINICAL DOCUMENTATION NURSE Work Phone: [facility] Comment on above: Thoracic spondylosis without myelopathy (Primary Dx); Postlaminectomy syndrome, lumbar region; Lumbosacral spondylosis without myelopathy Start: 11-21-2023 End: 11-21-2023 ambulatory FABIOLA Estes [facility] Start: 11-06-2023 Orders Only Genoveva Hyatt CMA [facility] Comment on above: Thoracic spondylosis without myelopathy (Primary Dx) Start: 10-24-2023 End: 10-24-2023 Office outpatient visit 25 minutes Fabiola Romano CARROTER-CLINICAL DOCUMENTATION NURSE Work Phone: [facility] Comment on above: Thoracic spondylosis (Primary Dx); Postlaminectomy syndrome, lumbar region; Encounter for long-term opiate analgesic use Start: 10-24-2023 End: 10-24-2023 ambulatory [facility] Start: 10-08-2023 End: 10-09-2023 Evaluation and management of inpatient [facility]an [facility] Start: 10-07-2023 End: 10-07-2023 Emergency department patient visit [facility] Start: 10-02-2023 End: 10-02-2023 ambulatory [facility] Start: 09-10-2023 End: 09-10-2023 ambulatory [facility] Start: 07-05-2023 End: 07-07-2023 Patient encounter status Uli Strogn MD Work Phone: [facility] Work Phone: Start: 07-05-2023 End: 07-07-2023 Subsequent hospital visit by physician Uli Strong MD Work Phone: [facility] Non-Invasive Cardiology Comment on above: Preop cardiovascular exam; Primary hypertension; Mixed hyperlipidemia; Intermittent chest pain Start: 06-21-2023 End: 06-21-2023 Subsequent hospital visit by physician Eliana Springer APRN - RAMSEY Work Phone: [facility] Laboratory Comment on above: Diarrhea, unspecifie d type Start: 09-27-2020 End: 09-27-2020 Patient encounter procedure [facility] Start: 08-23-2020 End: 08-23-2020 Patient encounter procedure [facility] Start: 07-05-2020 End: 07-05-2020 Patient encounter procedure [facility] Start: 05-24-2020 End: 05-24-2020 Patient encounter procedure [facility] Start: 04-26-2020 End: 04-27-2020 Patient encounter procedure [facility] Start: 01-26-2020 End: 01-26-2020 Patient encounter procedure [facility] Start: 12-15-2019 End: 12-15-2019 Patient encounter procedure [facility] Start: 12-09-2019 End: 12-09-2019 Patient encounter procedure [facility] Start: 12-02-2019 End: 12-02-2019 Patient encounter procedure [facility] Start: 11-27-2019 End: 11-27-2019 Patient encounter procedure [facility] Start: 11-17-2019 End: 11-17-2019 Patient encounter procedure [facility] Start: 11-17-2019 End: 11-17-2019 Patient encounter procedure [facility] Procedures Date Procedure Procedure Detail Performing Clinician Start: 08-28-2024 H/O splenectomy S/P splenectomy NA W mark REARDON Work Phone: Start: 08-22-2024 Radiologic exam ches t 2 views R Kassidy Jacobson MD Work Phone: Start: 08-22-2024 Antibody screen ELIANA SPRINGER Comment on above: Order Comment: Speci men Type: BLOOD SPECIMENOrdering Facility: [facility] Address: [address] [place] [address] [place] [address] Performed By: #### T [id number] ####CC MAIN BLOOD BANKCLIA [id number] [facility] [id number] [facility] Start: 08-11-2024 Ct thorax w/o contra st material M Antonio Mcgarry CARROTER - CLINICAL DOCUMENTATION NURSE Work Phone: Start: 08-08-2024 Radex ribs uni w/pos teroant ch minimum 3 views Tegan J Arita DO Work Phone: Start: 08-05-2024 Comprehensive metabo lic panel Sofia Smith MD Work Phone: Start: 07-28-2024 End: 07-28-2024 Gluc bld gluc mntr dev cleared fda spec home use Kajal Stewart MD Work Phone: Start: 07-28-2024 Esophagoscp rig rodriguez soral hypopharynx crv esoph Ligia Kerns RN Work Phone: Start: 07-14-2024 Assay of thyroid sti mulating hormone tsh Eliana Springer CARROTER - CLINICAL DOCUMENTATION NURSE Work Phone: Start: 04-26-2024 End: 04-26-2024 Radex spine thoracic 2 views Max matta MD Work Phone: Start: 04-23-2024 Creatinine blood Lauren Charlie DO Work Phone: Start: 03-17-2024 Radiologic exam ches t single view Tegan J Arita DO Work Phone: Start: 03-17-2024 Ecg routine ecg w/le ast 12 lds w/i&r Tegan J Arita DO Work Phone: Start: 03-17-2024 End: 03-17-2024 Basic metabolic panel calcium total Tegan J Arita DO Work Phone: Start: 11-30-2023 Urinalysis microscopic only Eliana Springer [facility] Work Phone: Start: 11-30-2023 Urnls dip stick/tabl et rgnt auto w/o microscopy Eliana Springer [facility] Work Phone: Start: 11-30-2023 Assay of iron Eliana Springer [facility] Work Phone: Start: 10-02-2023 Colonoscopy Eliana Garcia [facility] Work Phone: Start: 07-06-2023 Myocardial spect mul tiple studies Uli Strong MD Work Phone: Start: 12-15-2019 Infectious agent dna /rna influenza 1st 2 types [facility] Start: 12-09-2019 Radiologic exam ches t 2 views [facility] Start: 11-17-2019 Radex hip unilateral with pelvis 2-3 views [facility] Start: 11-17-2019 Radiologic exam knee complete 4/more views [facility] Start: 11-17-2019 Hgb glycosylated dev ice cleared fda home use [facility] Start: 03-01-2018 Lipid 1996 panel - S nenita or Plasma Alin Bardales MD Work Phone: Start: 07-03-2012 Colonoscopy Eliana Garcia [facility] [employer] [facility] Work Phone: Plan of Treatment Date Care Activity Detail Author Start: 2034 Pneumococcal 0-64 years Vaccine (3 - PPSV23 if available, else PCV20) Pneumococcal 0-64 years Vaccine (3 - PPSV23 if available, else PCV20) [facility] Start: 2034 Pneumococcal 0-64 years Vaccine (3 - PPSV23 or PCV20) Pneumococcal 0-64 years Vaccine (3 - PPSV23 or PCV20) [facility] [employer] Start: 2034 Pneumococcal 0-64 years Vaccine (3 of 3 - PPSV23 or PCV20) Pneumococcal 0-64 years Vaccine (3 of 3 - PPSV23 or PCV20) [facility] Start: 2034 Pneumococcal vaccination Pneumococcal Vaccine (3 of 3 - PPSV23 or PCV20) [facility] Start: 08-22-2034 DTaP/Tdap/Td vaccine (3 - Td or Tdap) DTaP/Tdap/Td vaccine (3 - Td or Tdap) [facility] Start: 08-22-2034 Urine microalbumin profile DTaP,Tdap,Td Vaccine (3 - Td or Tdap) [facility] Start: 06-18-2027 Diabetes Screening Diabetes Screening [facility] Start: 10-02-2026 Screening for malignant neoplasm of colon [facility] Start: 05-30-2026 Screening for malignant neoplasm of colon [facility] Start: 08-22-2025 BP Controlled (<130/80) BP Controlled (<130/80) [facility] inic Start: 08-20-2025 End: 08-20-2025 Patient encounter procedure 08/20/2025 11:00 AM EDT Office Visit [address] [place] [address] Octavio Chatterjee MD [address] [place] [address], [address] [place] [address] one year PSA [facility] Comment on above: one year PSA Start: 08-05-2025 GFR test (Diabetes, CKD 3-4, OR last GFR 15-59) GFR test (Diabetes, CKD 3-4, OR last GFR 15-59) [facility] Start: 07-24-2025 Depression Monitoring Depression Monitoring [facility] Start: 07-24-2025 Hepatitis B vaccine (1 of 3 - 19+ 3-dose series) Hepatitis B vaccine (1 of 3 - 19+ 3-dose series) [facility] Comment on above: Postponed from 1988 (Patient Refus ed) Start: 06-18-2025 Depression Monitoring Depression Monitoring [facility] Start: 06-18-2025 Hemoglobin A1c measurement A1C test (Diabetic or Prediabetic) [facility] Start: 04-23-2025 GFR test (Diabetes, CKD 3-4, OR last GFR 15-59) GFR test (Diabetes, CKD 3-4, OR last GFR 15-59) [facility] Start: 04-13-2025 Glaucoma screening Diabetic retinal exam [facility] Comment on above: Postponed from 1987 (Not Indicated ) Start: 04-03-2025 Depression Monitoring Depression Monitoring [employer] Start: 04-03-2025 Diabetic foot examination Diabetic foot exam [facility] Comment on above: Postponed from 1979 (Not Indicated ) Start: 04-03-2025 DTaP/Tdap/Td vaccine (2 - Td or Tdap) DTaP/Tdap/Td vaccine (2 - Td or Tdap) [facility] Comment on above: Postponed from 12/07/2023 (Patient Refus ed) Start: 04-03-2025 Urine screening for protein Diabetic Alb to Cr ratio (uACR) test [facility] Comment on above: Postponed from 1987 (Not Indicated ) Start: 03-17-2025 GFR test (Diabetes, CKD 3-4, OR last GFR 15-59) GFR test (Diabetes, CKD 3-4, OR last GFR 15-59) [facility] Start: 02-20-2025 End: 02-20-2025 Patient encounter procedure 02/20/2025 10:20 AM EDT Office Visit Endocrinology [address] [id number] Damion Bravo MD [address] [place] [address] f/u Endocrinology Comment on above: f/u Start: 02-12-2025 Depression Monitoring Depression Monitoring [employer] Start: 02-07-2025 Lipid panel Lipids [facility] Start: 01-13-2025 Adult BMI Screening Adult BMI Screening [facility] Start: 01-13-2025 Tobacco Screening Tobacco Screening [facility] Start: 01-10-2025 Depression Monitoring Depression Monitoring [employer] Start: 12-23-2024 Adult BMI Screening Adult BMI Screening [facility] Start: 12-23-2024 Tobacco Screening Tobacco Screening [facility] Start: 12-22-2024 End: 12-22-2024 Patient encounter procedure 12/22/2024 10:20 AM EST Office Visit [facility] [address] [place] [address] Eliana Springer, CARROTER - CLINICAL DOCUMENTATION NURSE [address] [place] [address] 6 month check [facility] Comment on above: 6 month check Start: 12-19-2024 Hemoglobin A1c measurement HbA1C [facility] Start: 11-26-2024 Adult BMI Screening [facility]ening [facility] Start: 11-26-2024 Tobacco Screening [facility] Start: 11-13-2024 Depression Monitoring Depression Monitoring [facility] [employer] Start: 10-31-2024 End: 10-31-2024 Follow-up encounter 10/31/2024 4:20 PM EST [facility] Endocrinology [address] [place] [address] Damion Bravo MD [address] [place] [address] Bravo Endocrinology Comment on above: follow up per Dr. Bravo Start: 10-24-2024 Adult BMI Screening Adult BMI Screening [facility] Start: 10-24-2024 Tobacco Screening [facility]ening [facility] Start: 10-17-2024 Meningococcal Conjugate Vaccine (2 - Risk 2-dose series) Meningococcal Conjugate Vaccine (2 - Risk 2-dose series) [facility] Start: 10-07-2024 GFR test (Diabetes, CKD 3-4, OR last GFR 15-59) GFR test (Diabetes, CKD 3-4, OR last GFR 15-59) [facility] Start: 10-07-2024 End: 10-07-2024 Nursing evaluation of patient and report 10/07/2024 12:30 PM EST Nurse Visit Diabetic Education Main X[facility] [address] [place] [address] Dario Hines, SIN[place] [address] [place] [address] [employer] Diabetic Education Main X20 Comment on above: [employer] Start: 10-02-2024 End: 10-02-2024 ambulatory 10/02/2024 12:30 PM EST [facility] Diabetic Education [facility] [address] [place] [address] [place] [address] [place] [address] Pre-pump Diabetic Education [facility] Comment on above: Pre-pump Start: 09-30-2024 End: 09-30-2024 Patient encounter procedure 09/30/2024 10:45 AM EST Office Visit General Surgery [address] [address] [place] [address] [address] [phone] postop General Surgery Comment on above: postop Start: 09-19-2024 Meningococcal B Vaccine: Consider Based On Risk (2 of 4 - Increased Risk Bexsero 2-dose series) Meningococcal B Vaccine: Consider Based On Risk (2 of 4 - Increased Risk Bexsero 2-dose series) [facility] Start: 08-28-2024 End: 08-28-2024 Admission to same day surgery center 08/28/2024 12:15 PM EST - 08/28/2024 5:45 PM EST Surgery Admitting [address] [place] [address] [place] [address] [place] [address] EXPLORATORY LAPAROTOMY Admitting Comment on above: EXPLORATORY LAPAROTOMY Start: 08-28-2024 End: 08-28-2024 Anesthesia consultation 08/28/2024 12:15 PM EST Anesthesia Event Admitting [address] [place] [address] Harjinder Craig, Research Coordinator Admitting Start: 08-28-2024 End: 08-28-2024 Exploratory laparotomy celiotomy w/wo biopsy spx [facility] Start: 08-28-2024 Subsequent hospital visit by physician 08/28/2024 12:15 PM EST Hospital Encounter Admitting [address] [place] [address] [place] [address] [place] [address] IPMN (intraductal papillary mucinous neoplasm) [D49.0] Admitting Comment on above: IPMN (intraductal papillary mucinous emmanuel plasm) [D49.0] Start: 08-22-2024 End: 08-22-2024 Nursing evaluation of patient and report 08/22/2024 1:30 PM EDT Nurse Visit General Surgery [address] [address] Ligia Kerns, RN [address] [place] [id number] Pt Education General Surgery Comment on above: Pt Education Start: 08-22-2024 End: 08-22-2024 ambulatory 08/22/2024 12:30 PM EDT Results Only Cardiology [address] [id number] Pre Op Cardiology Comment on above: Pre Op Start: 08-22-2024 End: 08-22-2024 Patient encounter procedure Main [place] A[facility] Draw Station Comment on above: Pre Op Start: 08-22-2024 End: 08-22-2024 Anesthesia consultation 08/22/2024 11:20 AM EDT PAT Pre Anesthesia [address], [place] [address] 7, Pacc Main [address] [place] [address] PRE OP Pre Anesthesia Comment on above: PRE OP Start: 08-20-2024 End: 08-20-2024 Patient encounter procedure 08/20/2024 11:00 AM EDT Office Visit [facility] Part of [address] [place] [address] Octavio Chatterjee MD [address] [facility], [address] [place] [address] 4-6 week Follow up-PSA reminder 07/09 aw [facility] Part of [facility] Comment on above: 4-6 week Follow up-PSA reminder 07/09 aw Start: 08-14-2024 End: 11-13-2024 CBC W Auto Differential panel - Blood COMPLETE BLOOD COUNT AND DIFFERENTIAL Lab Routine IPMN (intraductal papillary mucinous neoplasm) Preoperative examination Expected: 08/14/2024 (Approximate), Expires: 11/13/2024 [facility] Comment on above: Expected: 08/14/2024 (Approximate), Expi res: 11/13/2024 Start: 08-14-2024 End: 11-13-2024 Comprehensive metabolic 2000 panel - Serum or Plasma COMPREHENSIVE METABOLIC PANEL Lab Routine IPMN (intraductal papillary mucinous neoplasm) Preoperative examination Expected: 08/14/2024 (Approximate), Expires: 11/13/2024 [facility] Comment on above: Expected: 08/14/2024 (Approximate), Expi res: 11/13/2024 Start: 08-14-2024 End: 11-13-2024 CONFIRM BLOOD TYPE CONFIRM BLOOD TYPE Blood Bank Routine IPMN (intraductal papillary mucinous neoplasm) Preoperative examination Expected: 08/14/2024, Expires: 11/13/2024 [facility] Comment on above: Expected: 08/14/2024, Expires: Start: 08-14-2024 End: 11-13-2024 TYPE AND SCREEN,30 DAY TYPE AND SCREEN,30 DAY Blood Bank Routine IPMN (intraductal papillary mucinous neoplasm) Preoperative examination Expected: 08/14/2024, Expires: 11/13/2024 [facility] Comment on above: Expected: 08/14/2024, Expires: Start: 08-09-2024 Hemoglobin A1c measurement A1C test (Diabetic or Prediabetic) [facility] [place] [facility] Start: 08-09-2024 Lipid panel Lipids [facility] Start: 08-04-2024 End: 08-04-2024 Patient encounter procedure 08/04/2024 8:00 PM EDT Appointment [place] [phone] [facility] Comment on above: Diagnostic Start: 07-28-2024 End: 07-28-2024 Patient encounter procedure 07/28/2024 7:30 AM EDT Appointment Gastroenterology [address] [address] Sheyla Mensah MD [address] [address] Type: Gastroenterology Comment on above: Type: Start: 07-22-2024 End: 07-22-2024 Patient encounter procedure 07/22/2024 3:00 PM EDT Office Visit General Surgery [address] [place] [phone] [place] [address] [place] [phone] panc cyst General Surgery Comment on above: panc cyst Start: 07-22-2024 End: 10-21-2024 Cancer Ag 19-9 [Units/volume] in Serum or Plasma [facility] Work Phone: Comment on above: Expected: 07/22/2024, Expires: Start: 07-17-2024 End: 07-17-2024 Patient encounter procedure 07/17/2024 1:00 PM EDT Office Visit [facility] [address] [place] [phone] Octavio Chatterjee MD [address] [place] [address], [address] [place] [address] 4-6 week Follow up-PSA reminder 07/09 aw [facility] Comment on above: 4-6 week Follow up-PSA reminder 07/09 aw Start: 07-12-2024 Hepatitis B vaccine (1 of 3 - 3-dose series) Hepatitis B vaccine (1 of 3 - 3-dose series) [facility] Comment on above: Postponed from 1969 (Patient Refus ed) Start: 06-22-2024 Covid-19 Vaccine ( season) Covid-19 Vaccine ( season) [facility] Start: 06-22-2024 Influenza vaccination [employer] Start: 06-21-2024 Depression Monitoring Depression Monitoring [facility] Start: 05-22-2024 Influenza vaccination Flu vaccine (#1) [facility] Start: 05-22-2024 End: 05-22-2024 Patient encounter procedure 05/22/2024 12:30 PM EDT Office Visit [facility] [address] [place] [address] Demarcus Reid MD [address] [place] [address] re-est care [facility] Comment on above: re-est care Start: 05-13-2024 End: 05-13-2024 Patient encounter procedure 05/13/2024 2:20 PM EDT Office Visit [facility] [address] [place] [phone] Eliana Springer, CARROTER - CLINICAL DOCUMENTATION NURSE [address] [place] [address] 6 months and awv [facility] Comment on above: 6 months and awv Start: 02-25-2024 End: 02-25-2024 Patient encounter procedure 02/25/2024 12:30 PM EDT Office Visit [facility] [address] [place] [phone] Joana Stratton MD [address] [facility] [phone] [facility] Start: 01-21-2024 End: 01-21-2024 Patient encounter procedure 01/21/2024 12:50 PM EDT Office Visit [facility] [address] [place] [phone] Joana Stratton MD [address] [place] [address] [facility] Start: 12-24-2023 End: 12-24-2023 Patient encounter procedure 12/24/2023 1:00 PM EST Office Visit [facility] [address] [place] [phone] Joana Stratton MD [address] [place] [address] [facility] Start: 12-07-2023 DTaP,Tdap and Td Vaccines (2 - Td or Tdap) DTaP,Tdap and Td Vaccines (2 - Td or Tdap) [facility] Start: 12-07-2023 DTaP/Tdap/Td vaccine (2 - Td or Tdap) DTaP/Tdap/Td vaccine (2 - Td or Tdap) [facility] Start: 12-07-2023 Urine microalbumin profile DTaP,Tdap,Td Vaccine (2 - Td or Tdap) [facility] Start: 11-26-2023 End: 11-26-2023 Admission to same day surgery center 11/26/2023 11:00 AM EST - 11/26/2023 11:10 AM EST Surgery [facility] [address] [place] [phone] Joana Stratton MD [address] [place] [address] #2 Bilateral Thoracic Medial Branch Block T7-8 and T8-9 [53427 (CPT )] [facility] Comment on above: #2 Bilateral Thoracic Medial Branch Bloc k T7-8 and T8-9 [05800 (CPT )] Start: 11-26-2023 End: 11-26-2023 Njx dx/ther agt pvrt facet jt crv/thrc 1 level INJECTION BLOCK NERVE MEDIAL BRANCH Thoracic spondylosis without myelopathy 11/26/2023 11:00 AM EST [facility] Start: 11-26-2023 End: 11-26-2023 Patient encounter procedure 11/26/2023 11:00 AM EST Procedure visit [facility] [address] [place] [phone] [facility] Start: 11-26-2023 Subsequent hospital visit by physician 11/26/2023 11:00 AM EST Hospital Encounter [facility] Surgery [address] [place] [phone] Joana Stratton MD [address] [facility] [place] [address] [facility] Start: 11-21-2023 End: 11-21-2023 Patient encounter procedure 11/21/2023 2:30 PM EST Office Visit [facility] [address] [place] [phone] Fabiola Romano, CARROTER-CLINICAL DOCUMENTATION NURSE [address] [place] [phone] [facility] Start: 10-22-2023 Annual Wellness Visit (Medicare Advantage) Annual Wellness Visit (Medicare Advantage) [facility] Start: 07-12-2023 End: 07-12-2023 Patient encounter procedure [facility] Comment on above: 1 month f/u establish care Start: 07-09-2023 End: 07-09-2023 Patient encounter procedure 07/09/2023 2:40 PM EDT Office Visit [facility] [address] [place] [address] Eliana Springer, CARROTER - CLINICAL DOCUMENTATION NURSE [address] [place] [address] right ear impacted painful and muffled [facility] Comment on above: right ear impacted painful and muffled Start: 06-29-2023 End: 06-29-2023 Patient encounter procedure 06/29/2023 Office Visit Cardiology Uli Strong MD [address] [address] [place] [address] [facility] Part [facility] Start: 06-26-2023 End: 06-26-2023 Patient encounter procedure 06/26/2023 Office Visit Gastroenterology She Mead, CARROTER - CLINICAL DOCUMENTATION NURSE [address] [facility] [address] [place] [address] [facility] Start: 05-22-2023 Influenza vaccination Flu vaccine (#1) [facility] Start: 03-01-2023 Lipid panel Lipid Screening [facility] Start: 07-03-2022 Screening for malignant neoplasm of colon Colonoscopy [facility] Start: 09-01-2021 COVID-19 Vaccine (4 - Booster for Moderna series) COVID-19 Vaccine (4 - Booster for Moderna series) [facility] Start: 09-01-2021 COVID-19 Vaccine (4 - Moderna series) COVID-19 Vaccine (4 - Moderna series) [facility] Start: 08-09-2021 Lipid panel Lipids [facility] Start: 05-24-2021 Hemoglobin A1c measurement A1C test (Diabetic or Prediabetic) [facility] Start: 03-01-2019 Hepatitis B surface antibody level LDL Cholesterol [facility] Start: 2014 Screening for malignant neoplasm of colon [facility] Start: 1988 Hepatitis B vaccine (1 of 3 - 19+ 3-dose series) Hepatitis B vaccine (1 of 3 - 19+ 3-dose series) [facility] Start: 1987 Adult BMI Follow Up Plan Adult BMI Follow Up Plan [facility] Start: 1987 Annual PCP Team Chronic Disease Visit Annual PCP Team Chronic Disease Visit [facility] Start: 1987 Anxiety Screening Anxiety Screening [facility] Start: 1987 Depression Screening Depression Screening [facility] Start: 1987 Glaucoma screening Diabetic retinal exam [facility] Start: 1987 Hepatitis C screening Hepatitis C Screening [facility] Start: 1987 HIV screening HIV Screening [facility] Start: 1987 Spirometry Spirometry [facility] Start: 1987 Urine screening for protein Diabetic Alb to Cr ratio (uACR) test [facility] Start: 1981 Depression Screening Depression Screening [facility] [email or web address] [facility] Start: 1979 Diabetic foot examination Diabetic foot exam [facility] Start: 1979 Glaucoma screening Dilated Retinal Exam [facility] Start: 1979 Hepatitis B screening Urine Albumin:Creatinine Ratio [facility] Start: 1969 Hepatitis B vaccine (1 of 3 - 3-dose series) Hepatitis B vaccine (1 of 3 - 3-dose series) [facility] End: 01-20-2025 Benzodiazepine, urine, qualitative Benzodiazepine, urine, qualitative Lab Routine Postlaminectomy syndrome, lumbar region Encounter for long-term opiate analgesic use 1 Occurrences starting 01/21/2024 until 01/20/2025 [employer] Work Phone: Comment on above: 1 Occurrences starting 01/21/2024 until 01/20/2025 Benzodiazepines [Presence] in Urine Benzodiazepine, urine, qualitative Lab Routine Postlaminectomy syndrome, lumbar region Encounter for long-term opiate analgesic use 01/21/2024 6:17 PM EDT [employer] End: 04-23-2024 CT Cervical spine W contrast IV [facility] [employer] Work Phone: Comment on above: 1 Occurrences starting 04/23/2024 until 04/23/2024 CT Chest WO contrast CT CHEST WO CONTRAST Imaging STAT 08/11/2024 1:05 PM EDT [facility] End: 08-14-2025 ECG COMPLETE ECG COMPLETE ECG Routine IPMN (intraductal papillary mucinous neoplasm) Preoperative examination 1 Occurrences starting 08/14/2024 until 08/14/2025 [facility] Comment on above: 1 Occurrences starting 08/14/2024 until 08/14/2025 End: 07-22-2025 EGD - THERAPEUTIC, EUS, OR TUBE INTERVENTIONS EGD - THERAPEUTIC, EUS, OR TUBE INTERVENTIONS Endoscopy Routine Cyst and pseudocyst of pancreas 1 Occurrences starting 07/22/2024 until 07/22/2025 [facility] Comment on above: 1 Occurrences starting 07/22/2024 until 07/22/2025 EKG 12 Lead EKG 12 Lead ECG STAT 03/17/2024 2:02 PM EDT [facility] End: 06-21-2023 Gastrointestinal Panel, Molecular [facility] Comment on above: 1 Occurrences starting 06/21/2023 until 06/21/2023 INJECTION BLOCK NERV E MEDIAL BRANCH INJECTION BLOCK NERVE MEDIAL BRANCH Thoracic spondylosis [employer] End: 07-14-2024 Iron and TIBC [facility] [employer] [facility] Comment on above: 1 Occurrences starting 07/14/2024 until 07/14/2024 Lupus Anticoagulant Lupus Antico agulant Lab Routine Other fatigue Chronic pain syndrome 11/30/2023 9:42 AM EST [facility] PANC ELASTASE, FECAL PANC ELASTA SE, FECAL Lab Routine Cyst and pseudocyst of pancreas 07/22/2024 4:18 PM EDT [facility] End: 07-14-2024 PSA screening [facility] Work Phone: Comment on above: 1 Occurrences starting 07/14/2024 until 07/14/2024 RADIOFREQUENCY ABLAT ION SPINAL RADIOFREQUENCY ABLATION SPINAL Postlaminectomy syndrome, lumbar region Encounter for long-term opiate analgesic use Thoracic spondylosis without myelopathy [employer] REFER FOR ADMIT INTERVIEW REFER FOR ADMIT INTERVIEW Procedures Routine IPMN (intraductal papillary mucinous neoplasm) Preoperative examination Ordered: 08/14/2024 [facility] Work Phone: Comment on above: Ordered: 08/14/2024 Spirometry panel Incentive adam metry RT Respiratory Care Routine Every 2hr while awake until discontinued starting 08/08/2024 [facility] [employer] Comment on above: Every 2hr while awake until discontinued starting 08/08/2024 End: 01-20-2025 Unlisted Lab Test Unlisted Lab Test Lab Routine Postlaminectomy syndrome, lumbar region Encounter for long-term opiate analgesic use 1 Occurrences starting 01/21/2024 until 01/20/2025 [employer] Comment on above: 1 Occurrences starting 01/21/2024 until 01/20/2025 Unlisted Lab Test UR INE DRUG SCREEN;PAIN MANAGEMENT Unlisted Lab Test URINE DRUG SCREEN;PAIN MANAGEMENT Lab Routine Postlaminectomy syndrome, lumbar region Encounter for long-term opiate analgesic use 01/21/2024 6:17 PM EDT [facility] End: 08-05-2024 Urinalysis with Microscopic Urinalysis with Microscopic Lab STAT One Time for 1 Occurrences starting 08/05/2024 until 08/05/2024 [facility] Comment on above: One Time for 1 Occurrences starting 07/22 until 08/05/2024 End: 07-14-2024 Vitamin B12 & Folate [facility] Comment on above: 1 Occurrences starting 07/14/2024 until 07/14/2024 End: 07-14-2024 Vitamin D 25 Hydroxy [facility] [employer] Comment on above: 1 Occurrences starting 07/14/2024 until 07/14/2024 End: 09-13-2025 XR Chest PA and Lateral XR CHEST 2V FRONTAL/LAT Radiology Routine IPMN (intraductal papillary mucinous neoplasm) Preoperative examination 1 Occurrences starting 08/14/2024 until 09/13/2025 [facility] Comment on above: 1 Occurrences starting 08/14/2024 until 09/13/2025 Immunizations Immunization Date Immunization Notes Care Provider Charito lim 08-22-2024 DTP-Haemophilus influenzae type b conjugate vaccine [facility] 7 Work Phone: [facility] 08-22-2024 meningococcal (MenACWY-TT) vaccine, quadrivalent (MENQUADFI) Pac 7 Work Phone: [facility] 08-22-2024 meningococcal B vacc ine, recombinant, OMV, adjuvanted Pac 7 Work Phone: [facility] 08-22-2024 pneumococcal conjuga te (PCV20) vaccine, 20 valent (PREVNAR 20) Pac 7 Work Phone: [facility] Work Phone: 08-14-2023 influenza virus vacc ine, unspecified formulation Joana Stratton MD Work Phone: [facility] 10-23-2023 Influenza, injectabl e, [place] Canine Kidney, preservative free, quadrivalent Eliana Gian CARROTER - CLINICAL DOCUMENTATION NURSE Work Phone: [facility] 07-14-2023 COVID-19, MODERNA, (2022- formula), (age 12y+), IM, 50mcg/0.5mL Eliana Gian CARROTER - CLINICAL DOCUMENTATION NURSE Work Phone: [facility] 07-07-2021 COVID-19, MODERNA BL UE border, Primary or Immunocompromised, (age 12y+), IM, 100 mcg/0.5mL Eliana Gian CARROTER - CLINICAL DOCUMENTATION NURSE Work Phone: [facility] 02-01-2021 COVID-19, MODERNA BL UE border, Primary or Immunocompromised, (age 12y+), IM, 100 mcg/0.5mL Eliana Gian CARROTER - CLINICAL DOCUMENTATION NURSE Work Phone: [facility] 01-03-2021 COVID-19, MODERNA BL UE border, Primary or Immunocompromised, (age 12y+), IM, 100 mcg/0.5mL Eliana Gian CARROTER - CLINICAL DOCUMENTATION NURSE Work Phone: [facility] 08-07-2020 zoster vaccine recombinant Eliana Gian CARROTER - CLINICAL DOCUMENTATION NURSE Work Phone: [facility] 06-29-2020 influenza virus vacc ine, unspecified formulation Sofia Smith MD Work Phone: [facility] 06-29-2020 influenza, injectabl e, quadrivalent, preservative free Eliana Gian CARROTER - CLINICAL DOCUMENTATION NURSE Work Phone: [facility] 06-29-2020 influenza, seasonal, injectable Eliana Gian CARROTER - CLINICAL DOCUMENTATION NURSE Work Phone: [facility] 06-05-2020 zoster vaccine recombinant Eliana Gian CARROTER - CLINICAL DOCUMENTATION NURSE Work Phone: [facility] 08-01-2019 influenza, injectabl e, quadrivalent, preservative free Eliana Gian CARROTER - CLINICAL DOCUMENTATION NURSE Work Phone: [facility] 09-17-2018 influenza, injectabl e, quadrivalent, preservative free [facility] - CLINICAL DOCUMENTATION NURSE Work Phone: [facility] 10-01-2017 influenza virus vacc ine, unspecified formulation Sofia Smith MD Work Phone: [facility] 10-01-2017 influenza, injectabl e, quadrivalent, contains preservative [employer]er CARROTER - CLINICAL DOCUMENTATION NURSE Work Phone: [facility] 08-06-2017 pneumococcal conjuga te vaccine, 13 valent [facility] - CLINICAL DOCUMENTATION NURSE Work Phone: [facility] 07-07-2017 pneumococcal conjuga te vaccine, 13 valent [facility] [employer] CLINICAL DOCUMENTATION NURSE Work Phone: [facility] 01-17-2017 pneumococcal polysaccharide vaccine, 23 valent [employer] C[employer]OTER [employer] Work Phone: [facility] 08-17-2016 influenza virus vacc ine, unspecified formulation [employer] CARROTER [employer] CLINICAL DOCUMENTATION NURSE Work Phone: [facility] Work Phone: 12-07-2013 tetanus toxoid, redu pierre diphtheria toxoid, and acellular pertussis vaccine, adsorbed [employer] CARROTER - CLINICAL DOCUMENTATION NURSE Work Phone: [facility] 11-01-2010 pneumococcal conjuga te vaccine, 13 valent [facility] [employer] [facility] Work Phone: [facility] Payers Date Payer Category Payer Medicare [id number] 2023 Medicare [id number] 1.2.8 [id number] 2019 Medicaid [id number] 2014 Medicare [id number] 1969 Unknown [id number] 2.16.8 40.1.217365.3.579.2.93 1969 Unknown [id number] 2.16.8 40.1.723872.3.579.2.93 1969 Unknown [id number] 2.16.8 40.1.334105.3.579.2.93 1969 Unknown [id number] 2.16.8 40.1.819821.3.579.2.93 1969 Unknown [id number] 2.16.8 40.1.920702.3.579.2.93 1969 Unknown [id number] 2.16.8 40.1.453924.3.579.2.93 1969 Unknown [id number] 2.16.8 40.1.618528.3.579.2.93 1969 Unknown [id number] 2.16.8 40.1.233794.3.579.2.93 1969 Unknown [id number] 2.16.8 40.1.098768.3.579.2.93 1969 Unknown [id number] 2.16.8 40.1.775550.3.579.2.93 1969 Unknown [id number] 2.16.8 40.1.171540.3.579.2.93 1969 Unknown [id number] 2.16.8 40.1.810260.3.579.2.93 1969 Unknown [id number] 2.16.8 40.1.342848.3.579.2.93 1969 Unknown [id number] 2.16.8 40.1.409612.3.579.2.1286 1969 Unknown [id number] 2.16.8 40.1.471366.3.579.2.1286 1969 Unknown [id number] 2.16.8 40.1.210425.3.579.2.1286 1969 Unknown [id number] 2.16.8 40.1.947853.3.579.2.1286 1969 Unknown [id number] 2.16.8 40.1.149438.3.579.2.6 1969 Unknown [id number] 2.16.8 40.1.785345.3.579.2.1286 1969 Unknown [id number] 2.16.8 40.1.260079.3.579.2.6 1969 Unknown [id number] 2.16.8 40.1.896688.3.579.2.1285 1969 Unknown [id number] 2.16.8 40.1.528510.3.579.2.1285 1969 Unknown [id number] 2.16.8 40.1.719389.3.579.2.1285 1969 Unknown [id number] 2.16.8 40.1.161544.3.579.2.1285 1969 Unknown [id number] 2.16.8 40.1.030378.3.579.2.1285 1969 Unknown [id number] 2.16.84 0.1.574497.3.579.2.1285 1969 Unknown [id number] 2.16.840 .1.247369.3.579.2.1285 1969 Unknown [id number] 2.16.8 40.1.691141.3.579.2.1285 1969 Unknown [id number] 2.16. 840.1.748013.3.579.2. 1969 Unknown [id number] 2.16. 840.1.236902.3.579.2.196 1969 Unknown [id number] 2.16. 840.1.541951.3.579.2. 1969 Unknown [id number] 2.16. 840.1.154892.3.579.2.196 1969 Unknown [id number] 2.16. 840.1.904494.3.579.2.196 1969 Unknown [id number] 2.16. 840.1.947627.3.579.2.196 1969 Unknown [id number] 2.16. 840.1.107482.3.579.2.196 1969 Unknown [id number] 2.16. 840.1.006410.3.579.2.196 1969 Unknown [id number] 2.16.8 40.1.483845.3.579.2.1286 1969 Unknown [id number] 2.16.8 40.1.515837.3.579.2.173 1969 Unknown [id number] 2.16.8 40.1.045349.3.579.2.173 1969 Unknown [id number] 2.16.8 40.1.307126.3.579.2.173 1969 Unknown [id number] 2.16.8 40.1.521527.3.579.2.173 1969 Unknown [id number] 2.16.8 40.1.648339.3.579.2.173 1969 Unknown [id number] 2.16.8 40.1.610651.3.579.2.173 1969 Unknown [id number] 2.16.8 40.1.833592.3.579.2.173 1969 Unknown [id number] 2.16.8 40.1.307259.3.579.2.173 1969 Unknown [id number] 2.16.8 40.1.977456.3.579.2.173 1969 Unknown [id number] 2.16.8 40.1.605952.3.579.2.173 1969 Unknown [id number] 2.16.8 40.1.221371.3.579.2.173 1969 Unknown [id number] 2.16.8 40.1.529596.3.579.2.173 1969 Unknown [id number] 2.16.8 40.1.581326.3.579.2.173 1969 Unknown [id number] 2.16.8 40.1.634796.3.579.2.173 1969 Unknown [id number] 2.16.8 40.1.895448.3.579.2.173 1969 Unknown [id number] 2.16.8 40.1.107952.3.579.2.173 1969 Unknown [id number] 2.16.8 40.1.525840.3.579.2.173 1969 Unknown [id number] 2.16.8 40.1.423926.3.579.2.173 1969 Unknown [id number] 2.16.8 40.1.750242.3.579.2.173 1969 Unknown [id number] 2.16.8 40.1.303664.3.579.2.173 Social History Date Type Detail Facility Start: 04-23-2023 End: 08-22-2024 Tobacco smoking status KSIS Never smoked tobacco [facility] Start: 04-23-2023 End: 08-22-2024 Tobacco use and exposure Smokeless tobacco non-user [facility] Start: 06-21-2023 End: 08-22-2024 Alcohol intake Ex-drinker (finding) [facility] Start: 04-23-2023 End: 05-19-2023 History SDOH Alcohol Frequency 1 [facility] Start: 05-19-2023 History SDOH Alcohol Std Drinks 0 [facility] Start: 04-23-2023 History SDOH Financial 5 [place] Start: 04-23-2023 History SDOH Transpo rt Non-Med 2 [place] Start: 02-04-2018 Alcohol Comment on occasion [employer] Start: 1970 Sex Assigned At Not on file B ON [employer] Start: 05-19-2023 End: 07-17-2024 History of Social function [place] Start: 05-19-2023 End: 07-17-2024 Alcohol Use Disorder Identification Test - Consumption [AUDIT-C] [place] How often to you hav e a drink containing alcohol? Never [place] How many standard dr inks containing alcohol do you have on a typical day? Patient does not drink [place] (I/We) worried wheth er (my/our) food would run out before (I/we) got money to buy more. Never true [place] At any time in the p ast 12 months, were you homeless or living in fci [including now]? No [place] Start: 10-24-2023 End: 01-21-2024 Alcohol intake Lifetime non-drinker (finding) [facility] [email or web address] [facility] Tobacco smoking status No Smokin g Status Entered [facility] NEGATED: Highlighted rowStart: GARETTF History of tobacco use Passive smoker [facility] Medical Equipment Procedure Code Equipment Code Equipment Origin al Text Equipment Identifier Dates Use to check sug ars once a day [id number] Start: 08-22-2024 End: 09-19-2024 Use with insulin 5 times daily [id number] Start: 08-22-2024 Use to check sug ars once daily [id number] Start: 08-22-2024 Use to check sug ars once a day [id number] Start: 09-19-2024 Use to check sug ars 4 times daily. [id number] Start: 09-20-2024 Goals Date Patient Goal Desired Activity /State Personal health goal Comment on above: Formatting of this n ote might be different from the original. Would like to start walking dogs again Comment on above: Formatting of this n ote might be different from the original. Would like to start walking dogs again Clinical Notes 07-05-2023 to 10-02-2024 Dario Hines RN - 10/02/2024 12:30 PM ESTTelephone Encounter - Madhuri Barlow - 10/02/2024 12:07 PM ESTTelephone Encounter - Madhuri Barlow - 10/02/2024 12:07 PM ESTDischarge Instructions Note Date & Type Note Facility 10-02-2024 Note [facility] 10-02-2024 History of Present illness Narrative DIABETES SELF-MANAGEMENT EDUCATION AND SUPPORT Location: Main [place] Type of visit: In person individual Types of DSMES: Initial/Comprehensive (add to or update ADA spreadsheet) PATIENT'S MAIN CONCERN TODAY: Pre-pump Support person present for education today: none Cognitive ability: Alert and oriented Motivation to learn: Interested Learning barriers identified by educator: none Method of instruction: written, verbal, and computer INTERVENTIONS/TOPICS COVERED: -Diabetes Pathophysiology: relationship of glucose and insulin in the body and Pancreas function -Monitoring: BG targets, CGM type: Dexcom G7, and rationale for HGM -Healthy Eating: impact of carbs on BG, basic carb counting, and foods with carbs -Medications: medication safety/timing, medication side effects, insulin storage, basal insulin, stacking insulin and how to prevent it, and insulin pump instruction: pump benefits , pump requirements of user, pump limitations , infusion set types, infusion set rotation, infusion set adherence options, and insulin pump terminology: basal, bolus, and BG target -Physical Activity: impact of exercise on BG, types of exercise, and exercise safety -Acute Complications: hypoglycemia s/sx/tx, hyperglycemia s/sx/tx, glucagon instruction , carrying an emergency kit (pumps), risk for DKA on a pump, and hypoglycemia management on closed loop pumps -Chronic Complications: LT complications and importance of BG control to reduce risks -Healthy Coping and Support: stress management techniques and benefits of a support system, types of support (ex:family, friends, support groups, diabetes groups on social media) DIABETES ASSESSMENT: Referring Physician: Damion Bravo Previous Diabetes Education? No What are you hoping to gain from this visit? To talk about stuff for the pump In your words, what is diabetes? It's horrible, I hate it, but it is what it is What concerns you about having diabetes? I just want to get back to what I was doing before the pancreectomy Diabetes History: Type of Diabetes: Other What year were you diagnosed? 2023 Does anyone in your family have diabetes? no How do you learn best? 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 never How often does someone help you read your pill bottles? never How often does someone have to help you take care of your diabetes? never Major stressors:Nothing Really How do you manage stress? asked/not answered Do any of the following things get in the way of managing your diabetes? Nothing gets in the way of DM management Health History: Most recent eye exam: None on file Most recent dental exam:None on File Most recent foot exam:None on file How often do you inspect your feet at home? Sometimes Do you use tobacco? No Do you use alcohol? No In the past 12 months have you had any: Hospital Admissions: Yes, Number of Times? 2 ER Visits: Yes, Number of Times? 7 Primary Care Visits: Yes, Number of Times? 4 What are your general feelings about you overall health? 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 No Sick Days: How do you manage your diabetes when you are sick? Asked/not answered Sleep: Do you get at least 7 hrs of sleep most nights? yes Current Outpatient Medications Medication Sig promethazine (PHENERGAN) 25 mg suppository 1 Suppository by RECTAL route every 6 hours as needed for nausea/vomiting. insulin lispro (HUMALOG U-100 INSULIN) 100 unit/mL injection Use up to 50 units in insulin pump daily promethazine (PHENERGAN) 25 mg tablet Take 1 tablet by mouth every 8 hours as needed (for nausea). blood sugar diagnostic (BLOOD GLUCOSE TEST) test strip Use to check sugars 4 times daily. insulin lispro (HUMALOG KWIKPEN INSULIN) 100 unit/mL Inject 3 units three times daily with meals along with the sliding scale with meals and at bedtime: If Blood Glucose (mg/dL) is: Less than 110-Give 0 units 111-150Give 0 units 151-200Give 2 units 201-250Give 4 units 251-300Give 6 units 301-350Give 8 units 351-400Give 10 units Greater than 400-Give 10 units and Notify Provider acetaminophen (TYLENOL) 325 mg tablet Take 2 tablets by mouth every 6 hours as needed for pain. bisacodyl (DULCOLAX) 10 mg supp 1 Suppository by RECTAL route once daily as needed for constipation. magnesium hydroxide (MOM) 400 mg/5 mL suspension Take 30 mL by mouth once daily as needed for constipation. pantoprazole DR (PROTONIX) 40 mg tablet Take 1 tablet by mouth once daily. polyethylene glycol 3350 17 gram packet Take 1 Packet by mouth once daily as needed for constipation (Second line). Dissolve dose in 4 - 8 ounces of liquid and take as directed. insulin glargine 100 unit/mL (3 mL) Inject 16 Units subcutaneously daily at bedtime. prazosin HCl (PRAZOSIN ORAL) Take 1 mg by mouth daily at bedtime. Blood-Glucose Meter Use to check sugars once a day Lancets Use to check sugars once daily alcohol swabs (ALCOHOL WIPES) Ue up to 8 times a day glucagon (BAQSIMI) 3 mg/actuation nasal spray Use 1 [place] in the nose as needed. May repeat after 15 minutes using a new device if there is no response. glucose 4 gram chewable tablet Take 4 tablets by mouth as needed. Insulin Kent, Disposable, (BD ULTRAFINE III MINI PEN) 31 gauge x 3/16 Use with insulin 5 times daily gpiapd-jdtnekac-cjyfibi (CREON 36) 36,000-114,000- 180,000 unit delayed release capsule Take 3 caps by mouth 3 times daily with meals and 1 cap with each snack (2) montelukast (SINGULAIR) 10 mg tablet Take 10 mg by mouth once daily. VENTOLIN HFA 90 mcg/actuation inhaler Inhale 1 Puff as instructed every 6 hours as needed. albuterol (PROVENTIL) 2.5 mg /3 mL (0.083 %) nebulizer solution Use 2.5 mg via nebulizer every 4 hours as needed. ProAir RespiClick 90 mcg/actuation breath activated (albuterol sulfate) 2 puffs, Inhale, q6hr, PRN, # 1 EA, 0 Refill(enrique), Pharmacy: [address] amitriptyline (ELAVIL) 50 mg tablet Take 1 tablet by mouth daily at bedtime. amLODIPine (NORVASC) 2.5 mg tablet Take 1 tablet by mouth once daily. atorvastatin (LIPITOR) 40 mg tablet Take 1 tablet by mouth once daily. azelastine 0.1% nasal spray Use 1 [place] in each nostril two times a day. B-complex with vitamin C (ALLBEE WITH C) tablet Take 1 tablet by mouth every morning. cholecalciferol, Vitamin D3, (VITAMIN D3) 1,250 mcg (50,000 unit) cap capsule Take 50,000 Units by mouth. clonazePAM (KLONOPIN) 0.5 mg tablet Take 0.5 mg by mouth two times a day as needed. omeprazole (PRILOSEC) 40 mg capsule Take 40 mg by mouth once daily. promethazine (PHENERGAN) 25 mg tablet Take 1 tablet by mouth every 6 hours as needed. tamsulosin (FLOMAX) 0.4 mg Take 1 capsule by mouth every morning. ziprasidone (GEODON) 40 mg capsule Take 1 capsule by mouth every evening. Zinc Gluconate 30 mg tab Take by mouth. naloxone 4 mg/actuation nasal spray (NARCAN) Use 4 mg in the nose at bedtime as needed. mepolizumab injection 100 mg (NUCALA) Inject 100 mg subcutaneously once every month. fluticasone-vilanterol (BREO ELLIPTA) 200-25 mcg/dose inhaler Inhale 1 Inhalation as instructed once daily. XHANCE 93 mcg/actuation nasal spray Use 93 mcg in the nose two times a day. fexofenadine (CHAKA) 60 mg tablet Take 60 mg by mouth every 12 hours. Fenofibrate (LOFIBRA) 54 mg tablet Take 1 tablet by mouth once daily. ferrous sulfate 325 mg (65 mg iron) tablet Take 325 mg by mouth once daily. No current facility-administered medications for this visit. Medications for Diabetes: Name of Medication Dose When taken How often missed Reviewed Above Injections Technique: Do you take insulin or a medication you inject for your diabetes? Yes;then if so answer the following questions: How do you inject your medicine Pen Where are your injections done? Stomach/abdomen and Thigh Who prepares your syringes, pen, or pump infusion set? Self Who gives you injections or changes your pump sites? Me Where do you throw away your needles? asked/not answered Glucose Monitoring: Device: CGM (type: Dexcom G7) Checking frequency: continuous (using CGM) Checking times: continuous (using CGM) How are glucose levels shared with diabetes provider? provider downloads device at office visits Lancet disposal: asked/not answered Management of Low Blood Sugar: What has been your lowest blood sugar in the last month? 50 What are your symptoms of lows?Shaky, Sweaty, and Dizzy/lightheaded, Nausea How do you treat lows? Fruit snacks and juice Do you drive? yes If you are on a pump or MDI, do you have a prescription for Glucagon? yes Management of High Blood Sugar: What has been you highest blood sugar in the last month? 287 What are your symptoms of highs? Thirsty, Tired, and Frequent urination How do you treat your highs? Insulin Meal Planning: Are you currently following any meal plan? None Who does the cooking in your house? Self and Spouse Who does the grocery shopping? Self and Spouse How often do you eat out? 0-1x/week How many meals do you eat per day? Four or more Which meals do you tend to skip? None Beverages: water and diet drinks Reproductive Status (Females): Have you reached menopause? N/A (male patient) EDUCATION HANDOUTS: None LEARNING RESPONSE: Diabetes pathophysiology: Demonstrated understanding/competency today or at previous visit Healthy eating: Demonstrated understanding/competency today or at previous visit Being active: Needs further instruction/review Taking medications: Demonstrated understanding/competency today or at previous visit Monitoring glucose: Demonstrated understanding/competency today or at previous visit Acute complications: Demonstrated understanding/competency today or at previous visit Chronic complications: Demonstrated understanding/competency today or at previous visit Healthy coping: Demonstrated understanding/competency today or at previous visit Diabetes distress and support: Demonstrated understanding/competency today or at previous visit PATIENT SELECTED THE FOLLOWING GOALS: -Activity goal: exercise more 3: I have a plan to start -Medication goal: Start iLet Pump 4: I'm ready to start now POSSIBLE FUTURE TOPICS: 1. The following topics were not assessed due to time limitations, but should be assessed at the next visit: health history, sick days, and meal planning. 2. The following topics should be taught or reinforced at the next visit: healthy eating , being active, taking medications, monitoring glucose, acute complications, chronic complications, healthy coping, and diabetes distress and support. DIABETES EDUCATION PLAN: Individual follow-up Pump training Scheduled for 10/07/2024 @ 1230 Time Spent (Minutes): 60 This visit note will be communicated to the healthcare provider via access to shared medical record. SIGNATURE: Dario Hines RN PATIENT NAME: Alin Light DATE: October 02, 2024 TIME: 12:34 PM PAGER: documented in this encounter [facility] 10-02-2024 Telephone encounter Note DWO form received from [employer] for Insulin pump. Form completed and submitted to provider for review/signature. [facility] 10-02-2024 Miscellaneous Notes DWO form received from [employer] for Insulin pump. Form completed and submitted to provider for review/signature. documented in this encounter [facility] 09-30-2024 Note [facility] 09-30-2024 History of Present illness Narrative Images from the original note were not included. 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 Overall, he is doing ok. His BG have been a bit erratic, but he is working with Dr. Bravo and making good progress on stabilizing his sugars. He is struggling with intermittent nausea and vomiting. Sometimes these episodes are associated with hypoglycemic issues, but not always. He is trying to do small, frequent meals. He is taking his creon. No symptoms of steatorhea. More often having constipation. Staying active. No other complaints. 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 If you have any questions, ask your nurse or doctor. CHANGE how you take these medications * promethazine 25 mg tablet Commonly known as: PHENERGAN What changed: Another medication with the same name was added. Make sure you understand how and when to take each. Changed by: Jesus Jacobson MD * promethazine 25 mg tablet Commonly known as: PHENERGAN Take 1 tablet by mouth every 8 hours as needed (for nausea). What changed: Another medication with the same name was added. Make sure you understand how and when to take each. Changed by: Jesus Jacobson MD * promethazine 25 mg suppository Commonly known as: PHENERGAN 1 Suppository by RECTAL route every 6 hours as needed for nausea/vomiting. What changed: You were already taking a medication with the same name, and this prescription was added. Make sure you understand how and when to take each. Changed by: Jesus Jacobson MD * This list has 3 medication(s) that are the same as other medications prescribed for you. Read the directions carefully, and ask your doctor or other care provider to review them with you. CONTINUE taking these medications acetaminophen 325 mg tablet Commonly known as: TylenoL Take 2 tablets by mouth every 6 hours as needed for pain. alcohol swabs Commonly known as: ALCOHOL WIPES Ue up to 8 times a day amitriptyline 50 mg tablet Commonly known as: ELAVIL amLODIPine 2.5 mg tablet Commonly known as: NORVASC atorvastatin 40 mg tablet Commonly known as: LIPITOR azelastine 0.1% nasal spray B-complex with vitamin C tablet Commonly known as: ALLBEE with C BAQSIMI 3 mg/actuation nasal spray Generic drug: glucagon Use 1 [place] in the nose as needed. May repeat after 15 minutes using a new device if there is no response. bisacodyl 10 mg Supp Commonly known as: DULCOLAX 1 Suppository by RECTAL route once daily as needed for constipation. blood sugar diagnostic test strip Commonly known as: BLOOD GLUCOSE TEST Use to check sugars 4 times daily. Blood-Glucose Meter Use to check sugars once a day cholecalciferol (Vitamin D3) 1,250 mcg (50,000 unit) Cap capsule Commonly known as: VITAMIN D3 clonazePAM 0.5 mg tablet Commonly known as: KlonoPIN Fenofibrate 54 mg tablet Commonly known as: LOFIBRA ferrous sulfate 325 mg (65 mg iron) tablet fexofenadine 60 mg tablet Commonly known as: CHAKA fluticasone-vilanterol 200-25 mcg/dose inhaler Commonly known as: BREO ELLIPTA glucose 4 gram chewable tablet Take 4 tablets by mouth as needed. insulin glargine 100 unit/mL (3 mL) Inject 16 Units subcutaneously daily at bedtime. * insulin lispro 100 unit/mL Commonly known as: HumaLOG KwikPen Insulin Inject 3 units three times daily with meals along with the sliding scale with meals and at bedtime: If Blood Glucose (mg/dL) is: Less than 110-Give 0 units 111-150Give 0 units 151-200Give 2 units 201-250Give 4 units 251-300Give 6 units 301-350Give 8 units 351-400Give 10 units Greater than 400-Give 10 units and Notify Provider * insulin lispro 100 unit/mL injection Commonly known as: HumaLOG U-100 Insulin Use up to 50 units in insulin pump daily Insulin Kent (Disposable) 31 gauge x 3/16 Commonly known as: BD Ultrafine III Mini Pen Use with insulin 5 times daily Lancets Use to check sugars once daily kwswjj-remzmyrv-mbkecur 36,000-114,000- 180,000 unit delayed release capsule Commonly known as: CREON 36 Take 3 caps by mouth 3 times daily with meals and 1 cap with each snack (2) magnesium hydroxide 400 mg/5 mL suspension Commonly known as: MOM Take 30 mL by mouth once daily as needed for constipation. mepolizumab 100 mg injection Commonly known as: NUCALA naloxone 4 mg/actuation nasal spray omeprazole 40 mg capsule Commonly known as: PriLOSEC pantoprazole DR 40 mg tablet Commonly known as: PROTONIX Take 1 tablet by mouth once daily. polyethylene glycol 3350 17 gram packet Take 1 Packet by mouth once daily as needed for constipation (Second line). Dissolve dose in 4 - 8 ounces of liquid and take as directed. PRAZOSIN ORAL SINGULAIR 10 mg tablet Generic drug: montelukast tamsulosin 0.4 mg Commonly known as: FLOMAX * VENTOLIN HFA 90 mcg/actuation inhaler Generic drug: albuterol HFA * PROAIR RESPICLICK 90 mcg/actuation Generic drug: albuterol sulfate * albuterol 2.5 mg /3 mL (0.083 %) nebulizer solution Commonly known as: PROVENTIL XHANCE 93 mcg/actuation nasal spray Generic drug: fluticasone propionate Zinc Gluconate 30 mg Tab ziprasidone 40 mg capsule Commonly known as: GEODON * This list has 5 medication(s) that are the same as other medications prescribed for you. Read the directions carefully, and ask your doctor or other care provider to review them with you. Where to Get Your Medications These medications were sent to [facility] [id number] [place] [address] - [address] [facility] [phone] [address] ([facility] [place]) [id number] [address] [facility] [id number] promethazine 25 mg suppository PATHOLOGY FINAL DIAGNOSIS A. Retroportal lymph node, resection -1 benign lymph node B. Pancreas, duodenum, bile duct, pancreatoduodenectomy -Intraductal papillary mucinous neoplasm (3.9 cm), intestinal type, with focal high-grade dysplasia -The margins are negative for tumor -25 benign lymph nodes -See comment Diagnosis Comment -Intraductal papillary mucinous neoplasm (3.9 cm), intestinal type, involving the distal main pancreatic duct and and branch ducts, with focal high-grade dysplasia -No invasive tumor identified in the entirely submitted lesion -Background pancreas with chronic pancreatitis and lobulocentric atrophy -The margins are negative for tumor -Spleen with mild reactive changes -25 benign lymph nodes Objective: There were no vitals taken for this visit. General: alert, no distress, appropriate Abdomen: soft, non tender, non distended, well healing midline incision with no hernia. ROS: other systems reviewed and negative except per HPI above Assessment/Plan: Alin Light is a 53 year old male who is s/p total pancreatectomy with IPMN (HGD). -Will try adding daily miralax and titrate as needed, continue colace -Sent prescription for phenergan suppositories to his pharmacy- sometimes he can't keep it down PO -Discussed rationale for not continuing the reglan -Discussed proper timing of taking Creon and may need to adjust dosage based on meal content -He will call us in a month and let us know how things are going. Kelley Fowler MD September 30, 2024 11:30 AM [facility] STAFF PHYSICIAN NOTE OF PERSONAL INVOLVEMENT IN CARE I have reviewed the progress note obtained and documented by the fellow and I personally participated in the greenfield components. I have discussed the case and management of the patient's care. The following comments revise or confirm relevant greenfield components of the note. Assessment IMPRESSION: This is a 53 year old post total pancreatectomy for symptomatic IPMN, mixed type with HGD. doing well otherwise with some DGE. PLAN: will check in about DGE in one month. increase PPI, stop Reglan R. Kassidy Jacobson MD Date of Service: September 30, 2024 Time of Service: 11:28 AM documented in this encounter [facility] 09-30-2024 Note [facility] 09-26-2024 Telephone encounter Note Benji, This patient has received the iLet pump and needs training. Patient is new to pump. You are being assigned the training. Please contact patient to schedule training or instruct your PSS team on how to schedule. Please advise patient to charge their iLet pump and bring the following to the pump start once scheduled: 1. iLet pump 2. Appropriate CGM supplies 3. Vial or cartridge of rapid-acting insulin 4. At least 2 of each of the following items: Insulin cartridges (if filling cartridge from vial) Syringes/needles for filling cartridges (if filling cartridge from vial) Infusion sets Please coordinate the followin. Pre-pump education at your discretion 2. Order for rapid-acting insulin vials 3. Orders for pump rate settings Patient has been added to the pump training spreadsheet, so update as needed. Please respond JEREMIAS if you would prefer this training gets reassigned. Thanks! [facility] Work Phone: 09-26-2024 Miscellaneous Notes eBnji, This patient has received the iLet pump and needs training. Patient is new to pump. You are being assigned the training. Please contact patient to schedule training or instruct your PSS team on how to schedule. Please advise patient to charge their iLet pump and bring the following to the pump start once scheduled: 1. iLet pump 2. Appropriate CGM supplies 3. Vial or cartridge of rapid-acting insulin 4. At least 2 of each of the following items: Insulin cartridges (if filling cartridge from vial) Syringes/needles for filling cartridges (if filling cartridge from vial) Infusion sets Please coordinate the followin. Pre-pump education at your discretion 2. Order for rapid-acting insulin vials 3. Orders for pump rate settings Patient has been added to the pump training spreadsheet, so update as needed. Please respond JEREMIAS if you would prefer this training gets reassigned. Thanks! documented in this encounter [facility] 09-24-2024 Telephone encounter Note Spoke with patient. He is having extreme lows and bottoming out with vomiting, diaphoresis. No sensor. Would recommend that he drop to 17 units and also reduce humalog to 4 units. Also let him know moving forwards to inform me of any issues. Already messaged and texted our rep at [facility]. They will look into situation. I emailed back the form that was requested. He had approval for pump and sensors back on 09/12. Appreciated call and all questions answered. Damion Bravo MD September 24, 2024 [facility] 09-24-2024 Miscellaneous Notes Spoke with patient. He is having extreme lows and bottoming out with vomiting, diaphoresis. No sensor. Would recommend that he drop to 17 units and also reduce humalog to 4 units. Also let him know moving forwards to inform me of any issues. Already messaged and texted our rep at [facility]. They will look into situation. I emailed back the form that was requested. He had approval for pump and sensors back on 09/12. Appreciated call and all questions answered. Damion Bravo MD September 24, 2024 documented in this encounter [facility] 09-24-2024 Telephone encounter Note Received on-call page from firepot operator and tender need authorization form for Supplier for urgent supplies jeremias . Called patient, and he connected me in a three-way call with [employer] (supplier) who explained that they needed a form filled out for pump and supplies. Relayed information from Ms. Mead' note of same date indicating that form has been received and is being completed / sent to Dr. Bravo for review. He is frustrated with the length of time required to complete this process but understands that it is being reviewed. He asked me to leave the call so he can continue conversation with [facility] 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 independently. Jennifer Jenkins MD Clinical Fellow, Endocrinology [facility] Work Phone: 09-24-2024 Miscellaneous Notes Received on-call page from firepot operator and tender need authorization form for Supplier for urgent supplies jeremias . Called patient, and he connected me in a three-way call with [facility] (supplier) who explained that they needed a form filled out for pump and supplies. Relayed information from Ms. Mead' note of same date indicating that form has been received and is being completed / sent to Dr. Bravo for review. He is frustrated with the length of time required to complete this process but understands that it is being reviewed. He asked me to leave the call so he can continue conversation with [facility] 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 independently. Jennifer Jenkins MD Clinical Fellow, Endocrinology DWO form received from [employer] for insulin infusion catheter and supplies for EXT insulin infusion pump. Form completed and submitted to provider for review/signature. Stephanie Mead Real Estate Accountant II Diabetes & Endocrinology X-20 documented in this encounter [facility] 09-24-2024 Telephone encounter Note DWO form received from [facility] for insulin infusion catheter and supplies for EXT insulin infusion pump. Form completed and submitted to provider for review/signature. Stephanie Mead Real Estate Accountant II Diabetes & Endocrinology X-20 [facility] 09-19-2024 Telephone encounter Note This will be addressed by [employer] and also the medical supplier. I have not had to ever call in authorizations on pumps and do not feel comfortable doing so. Would be better to go through standard protocol here. Damion Bravo MD September 19, 2024 [facility] 09-19-2024 Miscellaneous Notes This will be addressed by [employer] and also the medical supplier. I have not had to ever call in authorizations on pumps and do not feel comfortable doing so. Would be better to go through standard protocol here. Damion Bravo MD September 19, 2024 Received a call from [facility] stating patient would like an insulin pump. However, an insulin pump would require a prior authorization. Agent advised the fastest way to expedite the authorization would be to do this would be via phone. Provider line [phone] Provider/PA team would have to provide: -- recent labs (would not specify which ones) -- what brand/type of pump patient would be ordering JORGE WOODS Real Estate Accountant II Endocrinology & Metabolism [facility] X-20 documented in this encounter [facility] 09-19-2024 Telephone encounter Note Requester: Patient Patients last Endocrinology visit occurred 09-09-24. Follow-up evaluation has been established Upcoming Endocrinology Appointments - Next 365 Days Visit Type Date Time Department VIDEO SPEC EST 10/31/2024 4:20 PM ENDO MAIN CA 4 EST BETO PATIENT 02/20/2025 10:20 AM ENDO MAIN . Requested Prescriptions Pending Prescriptions Disp Refills blood sugar diagnostic (BLOOD GLUCOSE TEST) test strip 100 Each 1 Sig: Use to check sugars once a day If patient is due for an appointment please route to provider for refill consideration and also to the endo scheduling pool. PSS NOTE: Patient needs scheduled appointment No [facility] 09-19-2024 Miscellaneous Notes Requester: Patient Patients last Endocrinology visit occurred 09-09-24. Follow-up evaluation has been established Upcoming Endocrinology Appointments - Next 365 Days Visit Type Date Time Department VIDEO SPEC EST 10/31/2024 4:20 PM ENDO MAIN CA 4 EST BETO PATIENT 02/20/2025 10:20 AM ENDO MAIN . Requested Prescriptions Pending Prescriptions Disp Refills blood sugar diagnostic (BLOOD GLUCOSE TEST) test strip 100 Each 1 Sig: Use to check sugars once a day If patient is due for an appointment please route to provider for refill consideration and also to the endo scheduling pool. PSS NOTE: Patient needs scheduled appointment No documented in this encounter [facility] 09-15-2024 Telephone encounter Note Faxed form to [employer] for sensors and receivers. Successfully transmitted to [phone]. Neema Saucedo Real Estate Accountant II [facility]-0 [facility] 09-15-2024 Miscellaneous Notes Faxed form to [employer] for sensors and receivers. Successfully transmitted to [phone]. Neema Saucedo Real Estate Accountant II [facility]-0 documented in this encounter [facility] 09-09-2024 Telephone encounter Note Received a call from [facility] stating patient would like an insulin pump. However, an insulin pump would require a prior authorization. Agent advised the fastest way to expedite the authorization would be to do this would be via phone. Provider line [phone] Provider/PA team would have to provide: -- recent labs (would not specify which ones) -- what brand/type of pump patient would be ordering JORGE WOODS Real Estate Accountant II Endocrinology & Metabolism [facility] X-20 [facility] 09-09-2024 Note [facility] 09-09-2024 History of Present illness Narrative Images from the original note were not included. REASON FOR CONSULTATION: Pancreatic diabetes September 09, 2024 I have communicated my name and active licensure. The patient's identity and physical location were verified at the time of this visit. 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 HISTORY Mr Alin Light is a 53 year old male who comes in here for evaluation of diabetes, pending total pancreatectomy without islet The patient is referred by Dr Jacobson. My recommendations will be sent to the referring physician/provider either by letter or shared electronic medical record. - primarily running 200s in the morning - not eating much, today has been high Approximate age at diagnosis of diabetes: [age] Circumstances surrounding the diagnosis:blood work has type 1 diabetes Complications/comorbidities: No complications History of diabetes medications: none Current diabetes medications: Metformin 500 daily Meals and exercise: Mostly carb since staying away fat for IPMN Number of times glucose levels are to be checked: Relion meter - just bought thi at [employer] Usually very well controlled Sometimes a bit of low blood sugar PMH: T2DM, IPMN PSH: NA Social History Tobacco Use Smoking status: Never Passive exposure: Never Smokeless tobacco: Never Vaping Use Vaping status: Never Used Substance Use Topics Alcohol use: Not Currently Drug use: Never No family history on file. Current Outpatient Medications Medication Sig traMADol (ULTRAM) 50 mg tablet Take 2 tablets by mouth two times a day for 7 days. oxyCODONE IR (ROXICODONE) 5 mg immediate release tablet Take 1 tablet by mouth every 8 hours as needed for pain (for pain not relieved by your baseline tramadol regimen and tylenol) for up to 7 days. insulin lispro (HUMALOG KWIKPEN INSULIN) 100 unit/mL Inject 3 units three times daily with meals along with the sliding scale with meals and at bedtime: If Blood Glucose (mg/dL) is: Less than 110-Give 0 units 111-150Give 0 units 151-200Give 2 units 201-250Give 4 units 251-300Give 6 units 301-350Give 8 units 351-400Give 10 units Greater than 400-Give 10 units and Notify Provider acetaminophen (TYLENOL) 325 mg tablet Take 2 tablets by mouth every 6 hours as needed for pain. bisacodyl (DULCOLAX) 10 mg supp 1 Suppository by RECTAL route once daily as needed for constipation. magnesium hydroxide (MOM) 400 mg/5 mL suspension Take 30 mL by mouth once daily as needed for constipation. metoclopramide HCl (REGLAN) 10 mg tablet Take 1 tablet by mouth three times a day for [address] (PROTONIX) 40 mg tablet Take 1 tablet by mouth once daily. polyethylene glycol 3350 17 gram packet Take 1 Packet by mouth once daily as needed for constipation (Second line). Dissolve dose in 4 - 8 ounces of liquid and take as directed. insulin glargine 100 unit/mL (3 mL) Inject 16 Units subcutaneously daily at bedtime. prazosin HCl (PRAZOSIN ORAL) Take 1 mg by mouth daily at bedtime. Blood-Glucose Meter Use to check sugars once a day Lancets Use to check sugars once daily blood sugar diagnostic (BLOOD GLUCOSE TEST) test strip Use to check sugars once a day alcohol swabs (ALCOHOL WIPES) Ue up to 8 times a day glucagon (BAQSIMI) 3 mg/actuation nasal spray Use 1 [place] in the nose as needed. May repeat after 15 minutes using a new device if there is no response. glucose 4 gram chewable tablet Take 4 tablets by mouth as needed. Insulin [place], Disposable, (BD ULTRAFINE III MINI PEN) 31 gauge x 3/16 Use with insulin 5 times daily xdojdp-ctpbgvlv-ialjgak (CREON 36) 36,000-114,000- 180,000 unit delayed release capsule Take 3 caps by mouth 3 times daily with meals and 1 cap with each snack (2) montelukast (SINGULAIR) 10 mg tablet Take 10 mg by mouth once daily. VENTOLIN HFA 90 mcg/actuation inhaler Inhale 1 Puff as instructed every 6 hours as needed. albuterol (PROVENTIL) 2.5 mg /3 mL (0.083 %) nebulizer solution Use 2.5 mg via nebulizer every 4 hours as needed. ProAir RespiClick 90 mcg/actuation breath activated (albuterol sulfate) 2 puffs, Inhale, q6hr, PRN, # 1 EA, 0 Refill(s), Pharmacy: [address] amitriptyline (ELAVIL) 50 mg tablet Take 1 tablet by mouth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 once a day Taking Yes Lancets Use to check sugars once daily Taking Yes blood sugar diagnostic (BLOOD GLUCOSE TEST) test strip Use to check sugars once a day Taking Yes alcohol swabs (ALCOHOL WIPES) Ue up to 8 times a day Taking Yes glucagon (BAQSIMI) 3 mg/actuation nasal spray Use 1 [place] in the nose as needed. May repeat after 15 minutes using a new device if there is no response. Taking Yes glucose 4 gram chewable tablet Take 4 tablets by mouth as needed. Taking Yes Insulin Kent, Disposable, (BD ULTRAFINE III MINI PEN) 31 gauge x 3/16 Use with insulin 5 times daily Taking Yes zciyrv-bbcuvbsk-zawyxdt (CREON 36) 36,000-114,000- 180,000 unit delayed release capsule Take 3 caps by mouth 3 times daily with meals and 1 cap with each snack (2) Taking Yes montelukast (SINGULAIR) 10 mg tablet Take 10 mg by mouth once daily. Taking Yes VENTOLIN HFA 90 mcg/actuation inhaler Inhale 1 Puff as instructed every 6 hours as needed. Taking Yes albuterol (PROVENTIL) 2.5 mg /3 mL (0.083 %) nebulizer solution Use 2.5 mg via nebulizer every 4 hours as needed. Taking Yes ProAir RespiClick 90 mcg/actuation breath activated (albuterol sulfate) 2 puffs, Inhale, q6hr, PRN, # 1 EA, 0 Refill(s), Pharmacy: [id number] Taking Yes amitriptyline (ELAVIL) 50 mg tablet Take 1 tablet by mouth daily at bedtime. Taking Yes amLODIPine (NORVASC) 2.5 mg tablet Take 1 tablet by mouth once daily. Taking Yes atorvastatin (LIPITOR) 40 mg tablet Take 1 tablet by mouth once daily. Taking Yes azelastine 0.1% nasal spray Use 1 [place] in each nostril two times a day. Taking Yes B-complex with vitamin C (ALLBEE WITH C) tablet Take 1 tablet by mouth every morning. Taking Yes cholecalciferol, Vitamin D3, (VITAMIN D3) 1,250 mcg (50,000 unit) cap capsule Take 50,000 Units by mouth. Taking Yes clonazePAM (KLONOPIN) 0.5 mg tablet Take 0.5 mg by mouth two times a day as needed. Taking Yes omeprazole (PRILOSEC) 40 mg capsule Take 40 mg by mouth once daily. Taking Yes promethazine (PHENERGAN) 25 mg tablet Take 1 tablet by mouth every 6 hours as needed. Taking Yes tamsulosin (FLOMAX) 0.4 mg Take 1 capsule by mouth every morning. Taking Yes traMADol 100 mg 24 hr tablet Take 100 mg by mouth once daily as needed. Taking Yes traMADol (ULTRAM) 50 mg tablet Take 2 tablets by mouth two times a day. Taking Yes ziprasidone (GEODON) 40 mg capsule Take 1 capsule by mouth every evening. Taking Yes Zinc Gluconate 30 mg tab Take by mouth. Taking Yes naloxone 4 mg/actuation nasal spray (NARCAN) Use 4 mg in the nose at bedtime as needed. Taking Yes metFORMIN (GLUCOPHAGE) 500 mg tablet Take 1 tablet by mouth once daily. Taking Yes mepolizumab injection 100 mg (NUCALA) Inject 100 mg subcutaneously once every month. Taking Yes fluticasone-vilanterol (BREO ELLIPTA) 200-25 mcg/dose inhaler Inhale 1 Inhalation as instructed once daily. Taking Yes XHANCE 93 mcg/actuation nasal spray Use 93 mcg in the nose two times a day. Taking Yes fexofenadine (CHAKA) 60 mg tablet Take 60 mg by mouth every 12 hours. Taking Yes Fenofibrate (LOFIBRA) 54 mg tablet Take 1 tablet by mouth once daily. Taking Yes ferrous sulfate 325 mg (65 mg iron) tablet Take 325 mg by mouth once daily. Taking Yes No medication comments found. ALLERGIES Allergen Reactions Codeine Hives Zofran [Ondansetron] Hives Objective PHYSICAL EXAM: General: alert and oriented. Pertinent negatives noted - not distressed and not confused. Skin: normal color, no rash or lesions. Pertinent negatives noted - no petechiae. HEENT: Pertinent negatives noted - EOM not intact, pupils not equal round, pupils not reactive to light and no carotid bruit. Cardiovascular: Pertinent negatives noted - no murmur, no rub and no gallop. No carotid pulse abnormalities. Respiratory: normal breath sounds, no wheezes or crackles. No chest wall deformity or tenderness. Abdomen: bowel sounds present and soft. Pertinent negatives noted - not tender. Extremities: no deformity, no edema or tenderness, no joint swelling or clubbing. Neurological: normal cognition and motor skills. Pertinent negatives noted - no confusion and no speech abnormality. PAIN ASSESSMENT: Pain Pain Level: 7 Pain Location: Abdomen Description: Tightness, Cramping Duration Units: Months Frequency: Continuous Intervention/Comfort measure: Medication VITALS: BP 125/78 Pulse 78 Temp (Src) 98.3 (Oral) Ht 5' 10 (1.78m) Wt 211 lb 10.3 oz (96.0kg) SpO2 98% BMI 30.37 kg/(m^2). Diagnostic tests reviewed for today's visit: Lab Value Units Date High Low HB No results within date range. HCT No results within date range. WBC No results within date range. PLT No results within date range. NA No results within date range. K No results within date range. GLUC No results within date range. BUN No results within date range. CREAT No results within date range. PTSEC No results within date range. INR No results within date range. APTT No results within date range. ALT No results within date range. AST No results within date range. TBILI No results within date range. TSH No results within date range. Lab Value Units Date High Low HCGQT No results within date range. UHCG No results within date range. HCG, BODY* No results within date range. Lab Value Units Date High Low ABORHD No results within date range. ABSCREEN No results within date range. No results found for: HBA1C No results found for this or any previous visit (from the past 8760 hour(s)). No results found for this or any previous visit (from the past 51105 hour(s)). ECHO Order: [id number] Narrative Global left ventricular systolic function is normal with estimated ejection fraction of 60 to 65%. Normal left ventricular cavity size with mildly increased left ventricular wall thickness. No definite specific wall motion abnormalities were. No significant valvular abnormalities. Normal diastolic function Left Ventricle Normal left ventricular systolic function with a visually estimated EF of 60 - 65%. Left ventricle size is normal. Mildly increased wall thickness. Normal wall motion. Normal diastolic function. Right Ventricle Right ventricle size is normal. Normal systolic function. Left Atrium Left atrium size is normal. Left atrial volume index is normal (16-34 mL/m2). Right Atrium Right atrium size is normal. Mitral Valve Valve structure is normal. No regurgitation. No stenosis noted. Tricuspid Valve Valve structure is normal. No regurgitation. No stenosis noted. Aortic Valve Valve structure is normal. No regurgitation. No stenosis. Pulmonic Valve Valve structure is normal. No regurgitation. No stenosis noted. Ascending Aorta Normal sized aortic root. Pericardium The pericardium is normal. No pericardial effusion. Nuclear stress test with myocardial perfusion Order: [id number] Narrative ECG: Resting ECG demonstrates normal sinus rhythm. Stress Test: A pharmacological stress test was performed using lexiscan. Low level exercise was used during the pharmacological stress test. The patient reported dyspnea and headaches during the stress test. Blood pressure demonstrated a normal response and heart rate demonstrated a normal response to stress. The patient's heart rate recovery was normal. ECG: The ECG was negative for ischemia. Stress Function: Left ventricular function post-stress is normal. Post-stress ejection fraction is 81%. The stress end diastolic cavity size is normal. Perfusion Defect: There is a mild severity left ventricular stress perfusion defect that is small to medium in size present in the anterior, anteroseptal and anterolateral segment(s). The defect appears to be caused by soft tissue. The possibility of artifact cannot be excluded. Overall, these results are most consistent with a low to intermediate risk for significant coronary artery disease. Depending on the patient symptoms and level of clinical suspicion, aggressive medical management vs. additional testing by coronary angiography my be indicated. The sensitivity for detecting ischemia on this test may have been reduced due the patient being on a calcium channel kandi Resting ECG The ECG shows sinus rhythm. Stress Findings A pharmacological stress test was performed using lexiscan. Low level exercise was used during the pharmacological stress test. The patient reported dyspnea and headaches during the stress test. Blood pressure demonstrated a normal response and heart rate demonstrated a normal response to stress. The patient's heart rate recovery was normal. Stress ECG There were no arrhythmias during stress. No significant ST changes noted. The ECG was negative for ischemia. Nuclear Study Quality Nuclear Cardiac SPECT gated stress then rest with tomographic imaging/tomography utilized for the myocardial perfusion procedure. Lexiscan was used as the stressing method and agent. (Lexiscan given via a 10 - 20 sec injection). This Single Photon Emission Computer Tomography (SPECT) study utilized tomographic imaging/tomography for the tomographic myocardial perfusion imaging performed during this study. Overall image quality is good. Perfusion Comments Prone images were obtained. Prone imaging was helpful in correcting soft tissue attenuation. Perfusion Defect There is a mild severity left ventricular stress perfusion defect that is small to medium in size present in the anterior, anteroseptal and anterolateral segment(s). The defect appears to be caused by soft tissue. The possibility of artifact cannot be excluded. Stress Function Comments Left ventricular function post-stress is normal. Post-stress ejection fraction is 81%. The stress end diastolic cavity size is normal. Instructions Given to Patient: Instructions located in the after visit summary. Patient given verbal and written preop instructions and voices comprehension and compliance. SIGNATURE: Vito Duncan MD PATIENT NAME: Alin Light DATE: August 22, 2024 TIME: 10:44 AM PAGER/CONTACT #: Attending Note I evaluated the patient and personally participated in the [place] components. I agree with the resident's findings and plan as documented and have discussed the case and management of the patient's care with the resident. Signature: Tsering Madison MD Date: 08/22/2024 Time: 12:42 PM [facility] 08-22-2024 History and physical note Images from the original note were not included. [facility] HISTORY AND PHYSICAL EXAMINATION SERVICE DATE: 08/22/2024 SERVICE TIME: 11:48 AM PRIMARY CARE PHYSICIAN: Eliana Springer APRN - CLINICAL DOCUMENTATION NURSE, CARROTER.CLINICAL DOCUMENTATION NURSE Assessment Patient has the following medical conditions which may affect geronimo-operative course: Severe persistent asthma Eosinophilic asthma, with previous episodes of bronchitis and pneumonia. On Nucala injections and inhalers per immunology / pulmonology. Well controlled, no recent flares. 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[facility]) ([facility]) See 'severe persistent asthma'. No extrapulmonary manifestations. Dong's esophagus EGD 07/28/24 with Esophageal mucosal changes secondary to established long-segment Dong's disease. On omeprazole, asymptomatic. Type 2 diabetes mellitus ([facility]) Well controlled diabetes with A1C 6.1 01/2024. On insulin and metformin. Chronic pancreatitis ([facility]) history of acute recurrent pancreatitis of unclear etiology. He is status postcholecystectomy with his first attack of pancreatitis occuring about 7 years ago. He had an endoscopic ultrasound which revealed a questionable pancreatic cystic lesion at the tail of the pancreas. CT scan of abdomen with pancreatic protocol revealed dilated pancreatic duct up to 1.3 cm at the tail of the pancreas suspicious for intraductal papillary mucinous neoplasm. Now scheduled for total pancreatectomy without autoislet 08/28/24. Fatty liver ALT / AST normal most recently. On low-fat pancreatitis diet. History of bowel resection Post-trauma related to service. Reports frequent bowel movements. Campbell Activity Status Index: METS: Walk indoors, such as around the house (1.75 METs) Do light work around the house, such as dusting or washing dishes (2.70 METs) Take care of self; that is eating, dressing, bathing, using the toilet (2.75 METs) Walk a block or two on level ground (2.75 METs) Do moderate work around the house, such as vacuuming, sweeping floors, or carrying in groceries (3.50 METs) Do yardwork, such as raking leaves, weeding, or pushing a power mower (4.50 METs) Have sexual relations (5.25 METs) Climb a flight of stairs or walk up a hill (5.50 METs) Participate in moderate recreational activites, such as golf, bowling, dancing, doubles tennis, or throwing a baseball or football (6.00 METs) Participate in strenuous sport, such as swimming, singles tennis, football, basketball, or skiing (7.50 METs) Do heavy work around the house, such as scrubbing floors, lifting or moving heavy furniture (8.00 METs) Run a short distance (8.00 METs) DASI Score: 58.2 Patient denies any chest pain or undue shortness of breath with the above physical activity. Clinical Frailty Scale: 3. Well, with treated comorbid disease STOP-Bang Score: Patient over 50 years old Male patient Denies snoring loudly Denies feeling tired, fatigued, or sleepy during the daytime Has not been observed to stop breathing or choking/gasping during sleep Denies having high blood pressure BMI less than or equal to 35 kg/m^2 STOP-Bang Score: 2 [id number] Score: Diabetes history: Yes [id number] Score: ARISCAT Score: Age: 51-80 Preoperative SpO2: >=96% Respiratory infection in the last month: No Preoperative anemia: Yes Duration of surgery: >3 hrs Emergency procedure: No ARISCAT Score: ANESTHESIA FINDINGS: Intubation History: No history of difficult intubation. No abnormal airway history Significant Anesthesia Considerations: none Airway History: No history of difficult airway No abnormal airway history I - PHYSICAL EVALUATION AIRWAY Patient intubated: No. Tracheostomy tube not present Mallampati: IV. TM distance: <3 FB. Neck ROM: full ROM without neurological symptoms. Mouth opening: adequate. Short neck: no. Thick neck: yes Quispe present: yes Lip Bite Test: II DENTAL Dental findings: poor dentition, chipped and broken tooth. II - ANESTHESIA PLAN Beta Kandi Monitoring Plan Post Procedure Analgesic Plan Prepared for Surgery: optimally prepared for surgery, pending [see comment]. labs CONSULTS: Planned Anesthetic: The Following Tests/Procedures Have Been Initiated: No orders of the defined types were placed in this encounter. REASON FOR VISIT: Alin Light is a 53 year old male who is scheduled for Procedure(s): EXPLORATORY LAPAROTOMY (N/A) at the request of Jesus Angel MD for. My final recommendation will be communicated back to the requesting physician by way of shared medical record or letter. Subjective The patient has the following: COVID-19 Immunization Status Overdue - Covid-19 Vaccine ( season) Overdue since 06/22/2024 07/14/2023 Imm Admin: COVID-19 vaccine, age 12+ yr (MODERNA) 07/07/2021 Imm Admin: COVID-19 original vaccine, full dose, monovalent (MODERNA) 02/01/2021 Imm Admin: COVID-19 original vaccine, full dose, monovalent (MODERNA) Only the first 3 history entries have been loaded, but more history exists. CHIEF COMPLAINT: Pancreatitis HPI: Alin Light is a 53 y.o. male with history of acute recurrent pancreatitis of unclear etiology. He is status postcholecystectomy with his first attack of pancreatitis occuring about 7 years ago. He had an endoscopic ultrasound which revealed a questionable pancreatic cystic lesion at the tail of the pancreas. CT scan of abdomen with pancreatic protocol revealed dilated pancreatic duct up to 1.3 cm at the tail of the pancreas suspicious for intraductal papillary mucinous neoplasm. Now scheduled for total pancreatectomy without autoislet 08/28/24. REVIEW OF SYSTEMS: General: Negative for: fever. Neurological: Negative for: headaches, seizures and strokes. Respiratory: Positive for: asthma. Negative for: COPD, current cough, dyspnea, home oxygen and URI < 2 weeks. Cardiovascular: Negative for: chest pain, DVT/PE and recent OK. GI: Positive for: abdominal pain, GERD and liver disease Negative for: dysphagia. : Negative for: dysuria, frequent urination, hematuria and urinary incontinence. Endocrine: Positive for: diabetes mellitus. Hematology: Negative for: bruises/bleeds easily. Psych: Positive for: bipolar disorder. Musculoskeletal: Positive for: joint pain. Skin: Negative for: rash. PAST MEDICAL HISTORY Diagnosis Date Dong esophagus Bipolar 1 disorder (HCC) Chronic pancreatitis (HCC) 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) Fatty liver Severe persistent asthma Type 2 diabetes (HCC) PAST SURGICAL HISTORY Procedure Laterality Date CHOLECYSTECTOMY HX PAST SURGICAL HISTORY OF Appendix removal PAST SURGICAL HISTORY OF Shrapnel removal No family history on file. Social History Tobacco Use Smoking status: Never Passive exposure: Never Smokeless tobacco: Never Vaping Use Vaping status: Never Used Substance Use Topics Alcohol use: Not Currently Drug use: Never Prior to Admission medications as of 08/22/24 1136 Medication Sig Last Dose Taking insulin glargine (LANTUS SOLOSTAR U-100 INSULIN) 100 unit/mL (3 mL) Use 20 units daily Taking Yes insulin lispro (HUMALOG KWIKPEN INSULIN) 100 unit/mL Use up to 30 units daily Taking Yes Blood-Glucose Meter Use to check sugars once a day Taking Yes Lancets Use to check sugars once daily Taking Yes blood sugar diagnostic (BLOOD GLUCOSE TEST) test strip Use to check sugars once a day Taking Yes alcohol swabs (ALCOHOL WIPES) Ue up to 8 times a day Taking Yes glucagon (BAQSIMI) 3 mg/actuation nasal spray Use 1 [place] in the nose as needed. May repeat after 15 minutes using a new device if there is no response. Taking Yes glucose 4 gram chewable tablet Take 4 tablets by mouth as needed. Taking Yes Insulin [place], Disposable, (BD ULTRAFINE III MINI PEN) 31 gauge x 3/16 Use with insulin 5 times daily Taking Yes zlvzlv-vpxastrh-zshzneq (CREON 36) 36,000-114,000- 180,000 unit delayed release capsule Take 3 caps by mouth 3 times daily with meals and 1 cap with each snack (2) Taking Yes montelukast (SINGULAIR) 10 mg tablet Take 10 mg by mouth once daily. Taking Yes VENTOLIN HFA 90 mcg/actuation inhaler Inhale 1 Puff as instructed every 6 hours as needed. Taking Yes albuterol (PROVENTIL) 2.5 mg /3 mL (0.083 %) nebulizer solution Use 2.5 mg via nebulizer every 4 hours as needed. Taking Yes ProAir RespiClick 90 mcg/actuation breath activated (albuterol sulfate) 2 puffs, Inhale, q6hr, PRN, # 1 EA, 0 Refill(s), Pharmacy: [address] Taking Yes amitriptyline (ELAVIL) 50 mg tablet Take 1 tablet by mouth daily at bedtime. Taking Yes amLODIPine (NORVASC) 2.5 mg tablet Take 1 tablet by mouth once daily. Taking Yes atorvastatin (LIPITOR) 40 mg tablet Take 1 tablet by mouth once daily. Taking Yes azelastine 0.1% nasal spray Use 1 [place] in each nostril two times a day. Taking Yes B-complex with vitamin C (ALLBEE WITH C) tablet Take 1 tablet by mouth every morning. Taking Yes cholecalciferol, Vitamin D3, (VITAMIN D3) 1,250 mcg (50,000 unit) cap capsule Take 50,000 Units by mouth. Taking Yes clonazePAM (KLONOPIN) 0.5 mg tablet Take 0.5 mg by mouth two times a day as needed. Taking Yes omeprazole (PRILOSEC) 40 mg capsule Take 40 mg by mouth once daily. Taking Yes promethazine (PHENERGAN) 25 mg tablet Take 1 tablet by mouth every 6 hours as needed. Taking Yes tamsulosin (FLOMAX) 0.4 mg Take 1 capsule by mouth every morning. Taking Yes traMADol 100 mg 24 hr tablet Take 100 mg by mouth once daily as needed. Taking Yes traMADol (ULTRAM) 50 mg tablet Take 2 tablets by mouth two times a day. Taking Yes ziprasidone (GEODON) 40 mg capsule Take 1 capsule by mouth every evening. Taking Yes Zinc Gluconate 30 mg tab Take by mouth. Taking Yes naloxone 4 mg/actuation nasal spray (NARCAN) Use 4 mg in the nose at bedtime as needed. Taking Yes metFORMIN (GLUCOPHAGE) 500 mg tablet Take 1 tablet by mouth once daily. Taking Yes mepolizumab injection 100 mg (NUCALA) Inject 100 mg subcutaneously once every month. Taking Yes fluticasone-vilanterol (BREO ELLIPTA) 200-25 mcg/dose inhaler Inhale 1 Inhalation as instructed once daily. Taking Yes XHANCE 93 mcg/actuation nasal spray Use 93 mcg in the nose two times a day. Taking Yes fexofenadine (CHAKA) 60 mg tablet Take 60 mg by mouth every 12 hours. Taking Yes Fenofibrate (LOFIBRA) 54 mg tablet Take 1 tablet by mouth once daily. Taking Yes ferrous sulfate 325 mg (65 mg iron) tablet Take 325 mg by mouth once daily. Taking Yes No medication comments found. ALLERGIES Allergen Reactions Codeine Hives Zofran [Ondansetron] Hives Objective PHYSICAL EXAM: General: alert and oriented. Pertinent negatives noted - not distressed and not confused. Skin: normal color, no rash or lesions. Pertinent negatives noted - no petechiae. HEENT: Pertinent negatives noted - EOM not intact, pupils not equal round, pupils not reactive to light and no carotid bruit. Cardiovascular: Pertinent negatives noted - no murmur, no rub and no gallop. No carotid pulse abnormalities. Respiratory: normal breath sounds, no wheezes or crackles. No chest wall deformity or tenderness. Abdomen: bowel sounds present and soft. Pertinent negatives noted - not tender. Extremities: no deformity, no edema or tenderness, no joint swelling or clubbing. Neurological: normal cognition and motor skills. Pertinent negatives noted - no confusion and no speech abnormality. PAIN ASSESSMENT: Pain Pain Level: 7 Pain Location: Abdomen Description: Tightness, Cramping Duration Units: Months Frequency: Continuous Intervention/Comfort measure: Medication VITALS: BP 125/78 Pulse 78 Temp (Src) 98.3 (Oral) Ht 5' 10 (1.78m) Wt 211 lb 10.3 oz (96.0kg) SpO2 98% BMI 30.37 kg/(m^2). Diagnostic tests reviewed for today's visit: Lab Value Units Date High Low HB No results within date range. HCT No results within date range. WBC No results within date range. PLT No results within date range. NA No results within date range. K No results within date range. GLUC No results within date range. BUN No results within date range. CREAT No results within date range. PTSEC No results within date range. INR No results within date range. APTT No results within date range. ALT No results within date range. AST No results within date range. TBILI No results within date range. TSH No results within date range. Lab Value Units Date High Low HCGQT No results within date range. UHCG No results within date range. HCG, BODY* No results within date range. Lab Value Units Date High Low ABORHD No results within date range. ABSCREEN No results within date range. No results found for: HBA1C No results found for this or any previous visit (from the past 8760 hour(s)). No results found for this or any previous visit (from the past 96676 hour(s)). ECHO Order: [id number] Narrative Global left ventricular systolic function is normal with estimated ejection fraction of 60 to 65%. Normal left ventricular cavity size with mildly increased left ventricular wall thickness. No definite specific wall motion abnormalities were. No significant valvular abnormalities. Normal diastolic function Left Ventricle Normal left ventricular systolic function with a visually estimated EF of 60 - 65%. Left ventricle size is normal. Mildly increased wall thickness. Normal wall motion. Normal diastolic function. Right Ventricle Right ventricle size is normal. Normal systolic function. Left Atrium Left atrium size is normal. Left atrial volume index is normal (16-34 mL/m2). Right Atrium Right atrium size is normal. Mitral Valve Valve structure is normal. No regurgitation. No stenosis noted. Tricuspid Valve Valve structure is normal. No regurgitation. No stenosis noted. Aortic Valve Valve structure is normal. No regurgitation. No stenosis. Pulmonic Valve Valve structure is normal. No regurgitation. No stenosis noted. Ascending Aorta Normal sized aortic root. Pericardium The pericardium is normal. No pericardial effusion. Nuclear stress test with myocardial perfusion Order: [id number] Narrative ECG: Resting ECG demonstrates normal sinus rhythm. Stress Test: A pharmacological stress test was performed using lexiscan. Low level exercise was used during the pharmacological stress test. The patient reported dyspnea and headaches during the stress test. Blood pressure demonstrated a normal response and heart rate demonstrated a normal response to stress. The patient's heart rate recovery was normal. ECG: The ECG was negative for ischemia. Stress Function: Left ventricular function post-stress is normal. Post-stress ejection fraction is 81%. The stress end diastolic cavity size is normal. Perfusion Defect: There is a mild severity left ventricular stress perfusion defect that is small to medium in size present in the anterior, anteroseptal and anterolateral segment(s). The defect appears to be caused by soft tissue. The possibility of artifact cannot be excluded. Overall, these results are most consistent with a low to intermediate risk for significant coronary artery disease. Depending on the patient symptoms and level of clinical suspicion, aggressive medical management vs. additional testing by coronary angiography my be indicated. The sensitivity for detecting ischemia on this test may have been reduced due the patient being on a calcium channel kandi Resting ECG The ECG shows sinus rhythm. Stress Findings A pharmacological stress test was performed using lexiscan. Low level exercise was used during the pharmacological stress test. The patient reported dyspnea and headaches during the stress test. Blood pressure demonstrated a normal response and heart rate demonstrated a normal response to stress. The patient's heart rate recovery was normal. Stress ECG There were no arrhythmias during stress. No significant ST changes noted. The ECG was negative for ischemia. Nuclear Study Quality Nuclear Cardiac SPECT gated stress then rest with tomographic imaging/tomography utilized for the myocardial perfusion procedure. Lexiscan was used as the stressing method and agent. (Lexiscan given via a 10 - 20 sec injection). This Single Photon Emission Computer Tomography (SPECT) study utilized tomographic imaging/tomography for the tomographic myocardial perfusion imaging performed during this study. Overall image quality is good. Perfusion Comments Prone images were obtained. Prone imaging was helpful in correcting soft tissue attenuation. Perfusion Defect There is a mild severity left ventricular stress perfusion defect that is small to medium in size present in the anterior, anteroseptal and anterolateral segment(s). The defect appears to be caused by soft tissue. The possibility of artifact cannot be excluded. Stress Function Comments Left ventricular function post-stress is normal. Post-stress ejection fraction is 81%. The stress end diastolic cavity size is normal. Instructions Given to Patient: Instructions located in the after visit summary. Patient given verbal and written preop instructions and voices comprehension and compliance. SIGNATURE: Vito Duncan MD PATIENT NAME: Alin Light DATE: August 22, 2024 TIME: 10:44 AM PAGER/CONTACT #: Attending Note I evaluated the patient and personally participated in the greenfield components. I agree with the resident's findings and plan as documented and have discussed the case and management of the patient's care with the resident. Signature: Tsering Madison MD Date: 08/22/2024 Time: 12:42 PM documented in this encounter [facility] 08-22-2024 Note [facility] 08-22-2024 History of Present illness Narrative REASON FOR CONSULTATION: Impending total pancreatectomy, type 2 diabetes Virtual visit August 22, 2024 I have communicated my name and active licensure. The patient's identity and physical location were verified at the time of this visit. 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 HISTORY Mr Alin Light is a 53 year old male who comes in here for evaluation of diabetes, pending total pancreatectomy without islet The patient is referred by Dr Jacobson. My recommendations will be sent to the referring physician/provider either by letter or shared electronic medical record. Approximate age at diagnosis of diabetes: [age] Circumstances surrounding the diagnosis:blood work has type 1 diabetes Complications/comorbidities: No complications History of diabetes medications: none Current diabetes medications: Metformin 500 daily Meals and exercise: Mostly carb since staying away fat for IPMN Number of times glucose levels are to be checked: Relion meter - just bought thi at [facility] Usually very well controlled Sometimes a bit of low blood sugar PMH: T2DM, IPMN PSH: NA Social History Tobacco Use Smoking status: Never Smokeless tobacco: Never Vaping Use Vaping status: Never Used Substance Use Topics Alcohol use: Not Currently Drug use: Never No family history on file. Current Outpatient Medications Medication Sig rtfrzf-yuzybcqn-qdsehkw (CREON 36) 36,000-114,000- 180,000 unit delayed release capsule Take 3 caps by mouth 3 times daily with meals and 1 cap with each snack (2) montelukast (SINGULAIR) 10 mg tablet Take 10 mg by mouth once daily. VENTOLIN HFA 90 mcg/actuation inhaler Inhale 1 Puff as instructed every 6 hours as needed. albuterol (PROVENTIL) 2.5 mg /3 mL (0.083 %) nebulizer solution Use 2.5 mg via nebulizer every 4 hours as needed. ProAir RespiClick 90 mcg/actuation breath activated (albuterol sulfate) 2 puffs, Inhale, q6hr, PRN, # 1 EA, 0 Refill(s), Pharmacy: [facility] [address] amitriptyline (ELAVIL) 50 mg tablet Take 1 tablet by mouth daily at bedtime. amLODIPine (NORVASC) 2.5 mg tablet Take 1 tablet by mouth once daily. atorvastatin (LIPITOR) 40 mg tablet Take 1 tablet by mouth once daily. azelastine 0.1% nasal spray Use 1 [place] in each nostril two times a day. B-complex with vitamin C (ALLBEE WITH C) tablet Take 1 tablet by mouth every morning. cholecalciferol, Vitamin D3, (VITAMIN D3) 1,250 mcg (50,000 unit) cap capsule Take 50,000 Units by mouth. clonazePAM (KLONOPIN) 0.5 mg tablet Take 0.5 mg by mouth two times a day as needed. omeprazole (PRILOSEC) 40 mg capsule Take 40 mg by mouth once daily. promethazine (PHENERGAN) 25 mg tablet Take 1 tablet by mouth every 6 hours as needed. tamsulosin (FLOMAX) 0.4 mg Take 1 capsule by mouth every morning. traMADol 100 mg 24 hr tablet Take 100 mg by mouth once daily as needed. traMADol (ULTRAM) 50 mg tablet Take 2 tablets by mouth two times a day. ziprasidone (GEODON) 40 mg capsule Take 1 capsule by mouth every evening. Zinc Gluconate 30 mg tab Take by mouth. naloxone 4 mg/actuation nasal spray (NARCAN) Use 4 mg in the nose at bedtime as needed. metFORMIN (GLUCOPHAGE) 500 mg tablet Take 1 tablet by mouth once daily. mepolizumab injection 100 mg (NUCALA) Inject 100 mg subcutaneously once every month. fluticasone-vilanterol (BREO ELLIPTA) 200-25 mcg/dose inhaler Inhale 1 Inhalation as instructed once daily. XHANCE 93 mcg/actuation nasal spray Use 93 mcg in the nose two times a day. fexofenadine (CHAKA) 60 mg tablet Take 60 mg by mouth every 12 hours. Fenofibrate (LOFIBRA) 54 mg tablet Take 1 tablet by mouth once daily. ferrous sulfate 325 mg (65 mg iron) tablet Take 325 mg by mouth once daily. No current facility-administered medications for this visit. ALLERGIES Allergen Reactions Jolynn Hodge [Ondansetron] Bel REVIEW OF SYSTEMS Answers submitted by the patient for this visit: Endocrine Review of Systems (Submitted on 08/22/2024) Fatigue: Yes Night sweats: Yes Recent unintentional weight change: No Skin Color Changes: No Post-Nasal Drip: Yes Thyroid Pain (lower neck): No Trouble Swallowing: No Vision Disturbance: No Chest pain: No Leg Swelling: No Blood Clots?: No Leg Pain while walking?: Yes Difficulty Breathing?: Yes Heartburn: No Nausea: Yes Vomiting: No Diarrhea: Yes Constipation: No Abdominal pain: Yes Bone Pain?: Yes Muscle aches: Yes Muscle weakness: Yes Joint pain or stiffness: Yes Headaches: Yes Dizziness: No Numbness?: Yes Urgency to Urinate?: Yes Increased Urination: Yes Slow or Small Urine Stream?: No Flushing: Yes Hot Flashes?: Yes Increased Thirst: Yes Change in Body Hair?: No Cold Intolerance: Yes Heat Intolerance: Yes PHYSICAL EXAMINATION There were no vitals taken for this visit. There is no height or weight on file to calculate BMI. Gen: well appearing, NAD Head: atraumatic normocephalic Eyes: EOMI no sceral icterus Neck: no goiter, supple Pulm: resp effort is appropriate Ext: no swelling cyanosis Neuro: hearing and speech normal ASSESSMENT/PLAN Upcoming total panreatectomy for IPMN, pre-existing type 2 diabetes - and mother in law appear to have T1D so there is good support ( has the medtronic) - we discussed pumps and I think he may benefit from the iLet - he is calling insurance about what is covered, DME and also glucose meter brand - we discussed short and long acting - sent in supplies for him to machine operator hop picker to be ready after procedure - I asked him to start working on carb counting (he is already familiar with nutrition labels since he has been avoiding fat for IPMN) - will need cpeptide and glucose in hospital after procedure for the pump See back post procedure 2-3 weeks Damion Bravo MD August 22, 2024 documented in this encounter [facility] 08-19-2024 Note [facility] 08-11-2024 Hospital Discharge instructions Franklyn Mcgarry APRN - CNP - 08/11/2024 2:48 PM EDT Can continue use of incentive spirometer Continue home medication [place] 5 mg / 325 mg 1 by mouth every 8 hours x 3 days as needed for moderate-severe pain. Do not drive with this medication The following attachments cannot be sent through Care Everywhere.Chest Contusion (Polish)Rib Contusion (Polish)Chest Pain: Musculoskeletal (Polish)documented in this encounter [facility] 08-08-2024 Hospital Discharge instructions Franklyn Mcgarry APRN - CNP - 08/08/2024 2:08 PM EDT Arnicare Gel OTC at [facility] 4 times daily with ice to affected area Norflex 100 mg 1 by mouth twice daily as needed for pain/spasm Ice every 2 hours while awake x 2 days then alternate with heat Use your incentive inhaler every 2 hours while awake to prevent pneumonia. Tylenol every 4-6 hours for pain You received Depomedrol 40 mg IM x 1 dose here.It is a steroid and may help with comfort and breathing for up to 3 weeks. The following attachments cannot be sent through Care Everywhere.Chest Pain: Musculoskeletal (Polish)Chest Contusion (Polish)Rib Contusion (Polish)documented in this encounter [facility] 08-08-2024 Telephone encounter Note Updated patient that we are waiting an update from Dr. Jacobson if I can schedule surgery and once confirmed I will let patient know and schedule [facility] Work Phone: 08-08-2024 Miscellaneous Notes Updated patient that we are waiting an update from Dr. Jacobson if I can schedule surgery and once confirmed I will let patient know and schedule Pt is calling to check status of upcoming Pancreas Surgery date. Contact info: [phone] documented in this encounter [facility] 08-08-2024 Telephone encounter Note Pt is calling to check status of upcoming Pancreas Surgery date. Contact info: [phone] [facility] 08-05-2024 Hospital Discharge instructions Sofia Smith MD - 08/05/2024 9:20 PM EDT Continue current medications as prescribed. He must follow-up with [facility] as soon as possible. Please return immediately should he develop any worsening symptoms or any acute concerns The following attachments cannot be sent through Care Everywhere.Pancreatitis (Polish)documented in this encounter [facility] 08-05-2024 Telephone encounter Note Patient called and is having black tarry stool. Advised him to be worked up by PCP or GI doctor for labs and stool test Calling Julia to confirm medications. [facility] Work Phone: 08-05-2024 Miscellaneous Notes Patient called and is having black tarry stool. Advised him to be worked up by PCP or GI doctor for labs and stool test Calling Julia to confirm medications. documented in this encounter [facility] 08-04-2024 Telephone encounter Note Updated patient on increasing creon. I also stated to patient that we will send script and that I am still waiting on response from dr. Jacobson if next steps are surgery [facility] Work Phone: 08-04-2024 Miscellaneous Notes Updated patient on increasing creon. I also stated to patient that we will send script and that I am still waiting on response from dr. Jacobson if next steps are surgery I returned call to patient. He states that he had a conversation with Ligia last week regarding adjusting the creon dosage after the results are back. The results are back revealing severe exocrine pancreatic insufficiency. He states that he is daily pancreatitis attacks. I have informed him that Ligia and Dr. Jacobson are both out this week. I have sent an email to the [facility] crew to advise me of the adjustment and send over a new script to his pharmacy. Pt has called another doctors office complaining that he is not getting a response from our office about his creon medication. Please give patient a call back soon. Pt is calling because he wants results of his test and also wants to talk about creon. Please give him a call. documented in this encounter [facility] 07-30-2024 Telephone encounter Note I returned call to patient. He states that he had a conversation with Ligia last week regarding adjusting the creon dosage after the results are back. The results are back revealing severe exocrine pancreatic insufficiency. He states that he is daily pancreatitis attacks. I have informed him that Ligia and Dr. Jacobson are both out this week. I have sent an email to the [facility] crew to advise me of the adjustment and send over a new script to his pharmacy. [facility] Work Phone: 07-30-2024 Telephone encounter Note Pt has called another doctors office complaining that he is not getting a response from our office about his creon medication. Please give patient a call back soon. [facility] 07-30-2024 Telephone encounter Note Pt is calling because he wants results of his test and also wants to talk about creon. Please give him a call. [facility] 07-28-2024 Nurse Note AMBULATORY PATIENT EDUCATION NOTE TOPIC: GI PROCEDURES: Endoscopic Ultrasound (EUS) with or without Fine Needle Aspiration (FNA) READINESS TO LEARN INSTRUCTION PROVIDED TO: Patient and friend/other COGNITIVE ABILITY: Alert and oriented PTED MOTIVATION TO LEARN: Eager FAMILY SUPPORT: High - Very involved in pt care IPATIENT LEARNS BEST BY: Individual Instruction FACTORS AFFECTING LEARNING: None PHYSICAL LIMITATIONS AFFECTING LEARNING: None LEARNING RESPONSE METHOD OF INSTRUCTION: Individual instruction PATIENT / FAMILY RESPONSE: Verbalizes understanding of: WORSENING CONDITION-Signs and symptoms of a worsening condition that warrant a call to the physician FOLLOW-UP PLAN: Complete - No need for follow-up SUPPLEMENTAL MATERIAL: Procedure Discharge Instructions REFERRAL (RECOMMENDATION): None [facility] 07-28-2024 Nurse Note AMBULATORY PATIENT EDUCATION NOTE TOPIC: GI PROCEDURES: Endoscopic Ultrasound (EUS) with or without Fine Needle Aspiration (FNA) READINESS TO LEARN INSTRUCTION PROVIDED TO: Patient and friend/other COGNITIVE ABILITY: Alert and oriented PTED MOTIVATION TO LEARN: Eager FAMILY SUPPORT: High - Very involved in pt care IPATIENT LEARNS BEST BY: Individual Instruction FACTORS AFFECTING LEARNING: None PHYSICAL LIMITATIONS AFFECTING LEARNING: None LEARNING RESPONSE METHOD OF INSTRUCTION: Individual instruction PATIENT / FAMILY RESPONSE: Verbalizes understanding of: WORSENING CONDITION-Signs and symptoms of a worsening condition that warrant a call to the physician FOLLOW-UP PLAN: Complete - No need for follow-up SUPPLEMENTAL MATERIAL: Procedure Discharge Instructions REFERRAL (RECOMMENDATION): None PRE OP LEARNING ASSESSMENT PROCEDURE/SURGERY: GI PROCEDURES: EGD EUS w/ FNA READINESS TO LEARN COGNITIVE ABILITY: Alert and oriented MOTIVATION TO LEARN: Eager FAMILY SUPPORT: High - Very involved in pt care PATIENT LEARNS BEST BY: Individual Instruction FACTORS AFFECTING LEARNING: None PHYSICAL LIMITATIONS AFFECTING LEARNING: None Electronically Signed By: Haris Neal RN In Department: GASTROENTEROLOGY documented in this encounter [facility] 07-28-2024 Note Q3 Patient Name: Alin Light Procedure Date: 07/28/2024 7:14 AM Date of : 1970 Admit Type: Outpatient Age: 53 Gender: Male Note Status: Finalized Attending MD: Sheyla Mensah MD, [id number] Procedure: Upper EUS Indications: Intraductal papillary mucinous neoplasm (IPMN) Providers: Sheyla Mensah MD Referring Physician: Kassidy Jacobson MD (Referring MD) Medicines: General Anesthesia Complications: No immediate complications. Requesting Provider: Procedure: Pre-Anesthesia Assessment: - ASA Grade Assessment: II - A patient with mild systemic disease. After obtaining informed consent, the endoscope was passed under direct vision. Throughout the procedure, the patient's blood pressure, pulse, and oxygen saturations were monitored continuously. The Endosonoscope was introduced through the mouth, and advanced to the second part of duodenum. The upper EUS was accomplished without difficulty. The patient tolerated the procedure well. Moderate Sedation: GA Findings: A large hiatal hernia was present. There were esophageal mucosal changes secondary to established long-segment Dong's disease present in the lower third of the esophagus. The entire examined stomach was normal. The major papilla was normal. ENDOSONOGRAPHIC FINDING: : The pancreatic duct had a dilated endosonographic appearance in the main pancreatic duct. The pancreatic duct measured up to 10 mm in diameter. There was no sign of significant endosonographic abnormality in the entire main bile duct. The maximum diameter of the duct was 5 mm. An unremarkable gallbladder was identified. Impression: - Large hiatal hernia. - Esophageal mucosal changes secondary to established long-segment Dong's disease. - Normal stomach. - No fish mouth appearance of major papilla. - The pancreatic duct had a dilated endosonographic appearance in the main pancreatic duct. The pancreatic duct measured up to 10 mm in diameter. - There was no sign of significant pathology in the entire main bile duct. - No solid pancreatic mass. Severe parenchymal atrophy. Estimated Blood Loss: Estimated blood loss: none. Recommendation: - Patient has a contact number available for emergencies. The signs and symptoms of potential delayed complications were discussed with the patient. Return to normal activities tomorrow. Written discharge instructions were provided to the patient. - Resume previous diet. - Continue present medications. Procedure Code(s): --- Professional --- 79171 Diagnosis Code(s): --- Professional --- K44.9 K22.70 D49.0 R93.3 CPT copyright 2020 [employer]. All rights reserved. Attending Participation: I personally performed the entire procedure. Scope In: 8:02:59 AM Scope Out: 8:15:38 AM MD Sheyla Nieves MD 07/28/2024 8:35:41 AM This report has been signed electronically by Sheyla Mensah MD Number of Addenda: 0 Note Initiated On: 07/28/2024 7:14 AM [facility] 07-28-2024 Nurse Note PRE OP LEARNING ASSESSMENT PROCEDURE/SURGERY: GI PROCEDURES: EGD EUS w/ FNA READINESS TO LEARN COGNITIVE ABILITY: Alert and oriented MOTIVATION TO LEARN: Eager FAMILY SUPPORT: High - Very involved in pt care PATIENT LEARNS BEST BY: Individual Instruction FACTORS AFFECTING LEARNING: None PHYSICAL LIMITATIONS AFFECTING LEARNING: None Electronically Signed By: Haris Neal RN In Department: GASTROENTEROLOGY [facility] 07-24-2024 Telephone encounter Note Left VM for patient that stool test low and adjustment to creon would be needed. Working with [facility] to schedule EUS w/ Dr. Mensah [facility] 07-24-2024 Miscellaneous Notes Left VM for patient that stool test low and adjustment to creon would be needed. Working with [facility] to schedule EUS w/ Dr. Mensah documented in this encounter [facility] 07-22-2024 Note [facility] 07-22-2024 History of Present illness Narrative Consultation requested by for an opinion regarding Alin Light, who presents today for IPMN. My final recommendations will be communicated back to the requesting physician by way of shared Medical record or letter to requesting physician via US mail. [facility] STAFF PHYSICIAN NOTE OF PERSONAL INVOLVEMENT IN CARE I have reviewed the consult note obtained and documented by the resident and I personally participated in the greenfield components. I have discussed the case and management of the patient's care. The following comments revise or confirm relevant greenfield components of the note. Assessment IMPRESSION: This is a 53 year old with recurrent pancreatitis for years, etiology obscure. now cystic dilation of entire pancreas with atrophy and no stones. aspiration suggests Main duct IPMN. no mass. on creon, but may not be enough. If Main duct IPMN then total pancreatectomy but NO islets. PLAN: egd to assess ampulla, CA 19-9, fecal elastase. Kayleen Jacobson MD Date of Service: July 22, 2024 Time of Service: 3:47 PM Pancreatic Cyst H&P Initial PATIENT NAME: Alin Light DATE of SERVICE: 07/22/2024 TIME of SERVICE: 2:59 PM PCP: No primary care provider on file. REFERRED BY: Consultation requested by Dr. Daniel dai for an opinion regarding recurrent pancreatitis and evaluation of IPMN My final recommendations will be communicated back to the requesting physician by way of shared Medical record or letter to requesting physician via US mail. YEYO Light is a 53 year old male with PMH T2DM (on metformin), recurrent pancreatitis, Dong's esophagus, PTSD who presents for evaluation of his IPMN. IPMN was symptomatically discovered during workup for: Abdominal process: Abdominal symptoms that led to cyst discovery include: recurrent pancreatitis. The patient has a history of chronic pancreatitis, for which he had a cholecystectomy 7 years ago to ameliorate symptoms. He continues to have regular episodes of pancreatitis, requiring >25 hospitalizations in the past 7 years. He complains of daily, intermittent abdominal pain that is on/off every 1-2 hours. Describes the pain as a someone squeezing his pancreas . The pain is exacerbated with ingestion of fatty moods, but sometimes happens out of nowhere. Taking Creon and abstaining from eating improves symptoms. The patient was recently informed of his dilated pancreatic ducts and he had an EGD with EUS, which found IPMN. He was referred to Dr Jacobson for surgical evaluation, hoping for a total pancreatectomy with islet cell autotransplantation. Personal history of Pancreatitis: Yes WORK UP 1. Normal scan: No 2. First detected: CT: 05/23/2024 LOCATION: Head: No Body/Tail: Yes, largest size: 1.3cm. Total number of cysts: 0 SEPTATIONS : No THICK WALLED : No CENTRAL CALCIFICATIONS: No PERIPHERAL CALCIFICATIONS : No MASS COMPONENT: No MURAL NODULE: No COMMUNICATION WITH MPD: Yes MPD: Head: >1.0 mm Body/Tail: >1.0 cm Outside Imaging: YES 3. Current image findings: Same as above Outside Imaging: YES EUS - Date - 06/26/2024 - Location: Head: No Body/Tail: No, largest size: N/A. Total number of cysts: 0 - Septations: No - Thick walled/ Hypervascular: No - Central calcifications: No - Peripheral calcifications : No - Mass component: No - Mural nodule: No - Communication with MPD: Yes - MPD: Head: >1.0 cm Body/Tail: >1.0 cm - Ampullary orifice: Not visualized - Aspiration: - Cytology: - Mucin: - CEA: - Glucose level in cyst fluid: - Amylase: Serum Labs No results found for: CEA No results found for: CA199 PAST MEDICAL HISTORY No past medical history on file. PAST SURGICAL HISTORY No past surgical history on file. SOCIAL HISTORY FAMILY HISTORY Family history of Pancreatic Cancer: No REVIEW OF SYSTEMS PAIN ASSESSMENT: CURRENTLY HAVING PAIN; LOCATION/DISTRIBUTION: RUQ PAIN SCALE: 6 on 0-10 scale per patient PAIN CHARACTER: feels like someone is squeezing his pancreas DURATION: (How long have you had the pain?) normally on/off every 1-2 hours, worse is a few days (usually gets hospitalized) AGGRAVATING FACTORS: eating fatty foods, sometimes no reason ALLEVIATING FACTORS: taking Creon, don't eat CARDIOVASCULAR: Negative for chest pain, leg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 Insecurity - Worry: Never True Food Insecurity - Inability: Never True Transportation Needs: Not on file Physical Activity: Not on file Stress: Not on file Social Connections: Not on file Interpersonal Safety: Not on file Housing Instability: Not on file Review of Systems: Review of Systems Constitutional: Negative. Negative for fever. HENT: Negative. Eyes: Negative. Cardiovascular: Negative. Negative for chest pain. Respiratory: Negative. Endocrine: Negative. Hematologic/Lymphatic: Negative. Skin: Negative. Musculoskeletal: Positive for back pain and neck pain. Gastrointestinal: Negative. Negative for bowel incontinence. Genitourinary: Negative. Negative for bladder incontinence. Neurological: Positive for numbness and tingling. Negative for weakness. Psychiatric/Behavioral: Negative. Allergic/Immunologic: Negative. Physical Exam: BP 124/77 Pulse 73 Resp 16 Ht 177.8 cm (5' 10 ) Wt 93 kg (205 lb) BMI 29.41 kg/m No acute distress Record/Diagnostics Review: As above, I did review the imaging. Assessment: 1. Thoracic spondylosis without myelopathy 2. Postlaminectomy syndrome, lumbar region 3. Encounter for long-term opiate analgesic use Orders Placed This Encounter Procedures Benzodiazepine, urine, qualitative Unlisted Lab Test Treatment Plan: DISCUSSION: Treatment options discussed with patient and all questions answered to patient's satisfaction. OARRS Review: Reviewed and acceptable for medications prescribed. TREATMENT OPTIONS: Continue current medication management, has been stable and compliant. Will obtain a urine drug screen today for standard monitoring purposes. Follow up when medications are due to be refilled. Will reassess the thoracic RFA at next visit.Consider intercostal nerve block Joana Stratton M.D. Scribe Statement: Scribed for and in the presence of JOANA STRATTON MD by Valentina Dietz Provider Statement: I, Joana Stratton personally performed the services described in the documentation, as scribed by Valentina Dietz in my presence, and it is both accurate and complete. Valentina Dietz RN 01/21/24 1317 Valentina Dietz RN 01/21/24 1332 Valentina Dietz RN 01/21/24 1335 documented in this encounter [employer] 12-24-2023 History of Present illness Narrative HPI: Pt presents today for his routine OV for medication assessment and refill and f/u for 11/26/23 Bilateral T 7/8, 8/9 with no relief reported. Preprocedure pain was 8/10 and continued 8/10 and higher after injection patient complaint of bladder incontinence for a little over a day after injection but has since resolved. Back Pain This is a chronic problem. The current episode started more than 1 year ago (2001). The problem occurs constantly. The problem is unchanged. The pain is present in the thoracic spine and gluteal. The quality of the pain is described as aching. The pain radiates to the right thigh, right knee, right foot, left thigh, left knee and left foot. The pain is at a severity of 8/10. The pain is severe. The pain is Worse during the night. The symptoms are aggravated by twisting, stress, sitting, standing, lying down, position and bending. Stiffness is present All day. Associated symptoms include leg pain, numbness and tingling. Pertinent negatives include no bladder incontinence, bowel incontinence, chest pain, fever or weakness. (right hand, and RLE lateral) He has tried analgesics, ice, heat, chiropractic manipulation, muscle relaxant and NSAIDs (PT/HEP not helpful 2019) for the symptoms. The treatment provided no relief. Neck Pain This is a chronic problem. The current episode started more than 1 year ago. The problem occurs constantly. The problem has been waxing and waning. The pain is associated with a fall. The pain is present in the midline. The quality of the pain is described as aching and burning. The pain is at a severity of 2/10. The pain is moderate. The symptoms are aggravated by position and stress. The pain is Worse during the day. Associated symptoms include leg pain, numbness and tingling. Pertinent negatives include no chest pain, fever or weakness. He has tried oral narcotics, acetaminophen, ice, heat, chiropractic manipulation and muscle relaxants for the symptoms. The treatment provided no relief. Alin comes to the office today for follow up of the #2 Bilateral T7-8 and T8-9 MBB that was performed on 11-26-23 again with good relief of the pain. He relates of bladder incontinence after procedures, which seems to be more of a problem and he should follow up with urology. Patient denies any new neurological symptoms. No bowel or bladder incontinence, no weakness, and no falling. Review of OARRS does not show any aberrant prescription behavior. Medication is helping the patient stay active. Patient denies any side effects and reports adequate analgesia. No sign of misuse/abuse. Tramadol pill count completed at today's office visit. Dose: 50mg has 22tabs and 100mg has 7 tabs Quantity Dispensed 120 tabs of 50mg and 30 tabs of 100mgs Fill date on prescription bottle 11/29/23 appropriate Patient educated to bring medication to every office visit. Past Medical History: Diagnosis Date Bipolar disorder [facility] Chronic pain disorder Chronic pancreatitis ([facility]) H. pylori infection Low back pain Neck pain PTSD (post-traumatic stress disorder) Past Surgical History: Procedure Laterality Date #1 Bilateral Thoracic Medial branch block T7-8 and T8-9 Bilateral 10/08/2023 Performed by Joana Stratton MD at [facility] #2 Bilateral Thoracic Medial Branch Block T7-8 and T8-9 Bilateral 11/26/2023 Performed by Joana Stratton MD at [facility] APPENDECTOMY FIXATION KYPHOPLASTY GALLBLADDER SURGERY INJECTION BLOCK SACROILIAC JOINT Bilateral 08/06/2023 Performed by Joana Stratton MD at [facility] PANCREAS SURGERY tumor removed PROSTATE SURGERY SPINAL CORD STIMULATOR IMPLANT Allergies Allergen Reactions Acetaminophen-Codeine Hives and Other (See Comments) Codeine Ibuprofen Other (See Comments) Zofran [Ondansetron Hcl] Current Outpatient Medications: amitriptyline (ELAVIL) 50 mg tablet, Take 1 tablet (50 mg total) by mouth nightly., Disp: , Rfl: AMLODIPINE BESYLATE, BULK, MISC, by miscellaneous route., Disp: , Rfl: atorvastatin (LIPITOR) 40 mg tablet, Take 1 tablet (40 mg total) by mouth in the morning., Disp: , Rfl: B-complex with vitamin C tablet, Take 1 tablet by mouth in the morning., Disp: , Rfl: clonazePAM (KlonoPIN) 0.5 mg tablet, Take 1 tablet (0.5 mg total) by mouth nightly. Taking 0.5 PRN and 1 tablet nightly, Disp: , Rfl: ergocalciferol (DRISDOL) 1,250 mcg (50,000 unit) capsule, Take 1 capsule (50,000 Units total) by mouth once a week., Disp: , Rfl: fenofibrate (LOFIBRA) 54 mg tablet, Take 1 tablet (54 mg total) by mouth in the morning., Disp: , Rfl: ferrous sulfate 325 (65 FE) mg tablet, Take 1 tablet (325 mg total) by mouth daily with breakfast., Disp: , Rfl: lipase/protease/amylase (CREON ORAL), Take by mouth., Disp: , Rfl: mepolizumab (NUCALA SUBQ), Inject under the skin., Disp: , Rfl: metFORMIN (FORTAMET) 500 MG (OSM) 24 hr tablet, Take 1 tablet (500 mg total) by mouth daily with breakfast., Disp: , Rfl: montelukast (SINGULAIR) 10 mg tablet, Take 1 tablet (10 mg total) by mouth nightly., Disp: , Rfl: naloxone (NARCAN) 4 mg/actuation spray,non-aerosol nasal spray, Administer 1 spray (4 mg total) into alternating nostrils as needed for opioid reversal., Disp: 1 each, Rfl: 1 NON FORMULARY, Med Name: Sophie Raymundo, Disp: , Rfl: omeprazole (PriLOSEC) 40 mg capsule, Take 1 capsule (40 mg total) by mouth in the morning., Disp: , Rfl: prazosin (MINIPRESS) 1 mg capsule, Take 1 capsule (1 mg total) by mouth nightly., Disp: , Rfl: tetracycline (ACHROMYCIN,SUMYCIN) 250 mg capsule, Take 1 capsule (250 mg total) by mouth in the morning and 1 capsule (250 mg total) at noon and 1 capsule (250 mg total) in the evening and 1 capsule (250 mg total) before bedtime., Disp: , Rfl: zinc gluconate 50 mg tablet, Take 1 tablet (50 mg total) by mouth in the morning., Disp: , Rfl: ziprasidone (GEODON) 20 mg capsule, Take 1 capsule (20 mg total) by mouth in the morning and 1 capsule (20 mg total) in the evening. Take with meals., Disp: , Rfl: ziprasidone (GEODON) injection, Inject 1 mL (20 mg total) into the appropriate muscle once., Disp: , Rfl: [START ON 12/29/2023] traMADoL (ULTRAM) 50 mg tablet, Take 1-2 tabs po bid prn. Filldate12/29/23, Disp: 120 tablet, Rfl: 0 traMADol ER (ULTRAM-ER) 100 mg 24 hr tablet, Take 1 tablet (100 mg total) by mouth daily as needed for pain for up to 30 days. Filldate 12/29/23, Disp: 30 tablet, Rfl: 0 History reviewed. No pertinent family history. Social History Socioeconomic History Marital status: Spouse name: Not on file Number of children: Not on file Years of education: Not on file Highest education level: Not on file Occupational History Not on file Tobacco Use Smoking status: Never Smokeless tobacco: Never Vaping Use Vaping Use: Never used Substance and Sexual Activity Alcohol use: Never Drug use: Never Sexual activity: Not on file Other Topics Concern Not on file Social History Narrative Not on file Social Determinants of Health Financial Resource Strain: Not on file Food Insecurity: No Food Insecurity (12/24/2023) Hunger Screening Food Insecurity - Worry: Never True Food Insecurity - Inability: Never True Transportation Needs: Not on file Physical Activity: Not on file Stress: Not on file Social Connections: Not on file Interpersonal Safety: Not on file Housing Instability: Not on file Review of Systems: Review of Systems Constitutional: Positive for malaise/fatigue (intermittent chronic). Negative for chills and fever. HENT: Negative. Cardiovascular: Negative. Negative for chest pain. Endocrine: Negative. Hematologic/Lymphatic: Negative. Skin: Negative. Negative for rash. Musculoskeletal: Positive for back pain, neck pain and stiffness. Negative for falls. Gastrointestinal: Negative. Negative for bowel incontinence. Genitourinary: Negative. Negative for bladder incontinence. Neurological: Positive for numbness and tingling. Negative for weakness. Psychiatric/Behavioral: Negative. Negative for suicidal ideas. Physical Exam: BP 139/85 Pulse 83 Resp 18 Ht 177.8 cm (5' 10 ) Wt 93 kg (205 lb) BMI 29.41 kg/m Loading pain bilateral Record/Diagnostics Review: As above, I did review the imaging. Assessment: 1. Thoracic spondylosis without myelopathy 2. Postlaminectomy syndrome, lumbar region 3. Encounter for long-term opiate analgesic use Orders Placed This Encounter Procedures Ambulatory referral to Physical Therapy (Non[facility]) Treatment Plan: DISCUSSION: Treatment options discussed with patient and all questions answered to patient's satisfaction. OARRS Review: Reviewed and acceptable for medications prescribed. TREATMENT OPTIONS: Continue current medication management, has been stable and compliant. Patient is to return when medications are due. Has failed conservative options, significant axial mid back pain with degenerative facet changes on MRI, I believe this is a good candidate for thoracic RFA. Has had significant benefit with previous #1 Thoracic MBB and #2 Thoracic MBB. Will schedule Bilateral T7-8 and T8-9 Thoracic RFA. Monitored Anesthesia Care is medically necessary for the procedure due to the patient having an inability to remain in a painful position . We will follow up with the patient in the clinic two weeks after the procedure. Joana Stratton M.D. Scribe Statement: Scribed for and in the presence of JOANA STRATTON MD by Valentina Dietz Provider Statement: I, Joana Stratton personally performed the services described in the documentation, as scribed by Valentina Dietz in my presence, and it is both accurate and complete. Valentina Dietz RN 12/24/23 1313 Valentina Dietz RN 12/24/23 1322 documented in this encounter [facility] 11-27-2023 History of Present illness Narrative Called and stated he received no relief from the #1 MBB that was performed yesterday. He also states he had urinary incontinence one time. Denies loss of bowel control. Denies fever or chills. Informed to go to the ER or follow up with his PCP regarding the incontinence. Voices understanding. documented in this encounter [facility] 11-21-2023 History of Present illness Narrative HPI: Pt presents today for his routine OV for medication assessment and refill. Back Pain This is a chronic problem. The current episode started more than 1 year ago (2001). The problem occurs constantly. The problem is unchanged. The pain is present in the thoracic spine and gluteal. The quality of the pain is described as aching. The pain radiates to the right thigh, right knee, right foot, left thigh, left knee and left foot. The pain is at a severity of 8/10. The pain is severe. The pain is Worse during the night. The symptoms are aggravated by twisting, stress, sitting, standing, lying down, position and bending. Stiffness is present All day. Associated symptoms include leg pain, numbness and tingling. Pertinent negatives include no bladder incontinence, bowel incontinence, chest pain, fever or weakness. (right hand, and RLE lateral) He has tried analgesics, ice, heat, chiropractic manipulation, muscle relaxant and NSAIDs (PT/HEP not helpful 2019) for the symptoms. The treatment provided no relief. Neck Pain This is a chronic problem. The current episode started more than 1 year ago. The problem occurs constantly. The problem has been waxing and waning. The pain is associated with a fall. The pain is present in the midline. The quality of the pain is described as aching and burning. The pain is at a severity of 2/10. The pain is moderate. The symptoms are aggravated by position and stress. The pain is Worse during the day. Associated symptoms include leg pain, numbness and tingling. Pertinent negatives include no chest pain, fever or weakness. He has tried oral narcotics, acetaminophen, ice, heat, chiropractic manipulation and muscle relaxants for the symptoms. The treatment provided no relief. Alin comes to the office today for his medication check. He is scheduled for his 2nd TMBB on Sunday however reports that he was incontinent for 2 days after the 1st injection. He denies being incontinent any other time. We discussed this at length and while this is not a common occurrence after the blocks I could happen. I have offered to cancel the injection however Jorge wishes to move forward with it. I have encouraged him to also discuss the incontinence with his pcp as he may need a referral to urology. Jorge last had PT in 2021. Will order at this time for low back strengthening. Patient denies any new neurological symptoms. No bowel or bladder incontinence, no weakness, and no falling. Past Medical History: Diagnosis Date Bipolar disorder ([facility]) Chronic pain disorder Chronic pancreatitis ([facility]) H. pylori infection Low back pain Neck pain PTSD (post-traumatic stress disorder) Past Surgical History: Procedure Laterality Date #1 Bilateral Thoracic Medial branch block T7-8 and T8-9 Bilateral 10/08/2023 Performed by Joana Stratton MD at [facility] KYPHOPLASTY GALLBLADDER SURGERY INJECTION BLOCK SACROILIAC JOINT Bilateral 08/06/2023 Performed by Joana Stratton MD at [facility] tumor removed PROSTATE SURGERY SPINAL CORD STIMULATOR IMPLANT Allergies Allergen Reactions Acetaminophen-Codeine Hives and Other (See Comments) Codeine Ibuprofen Other (See Comments) Zofran [Ondansetron Hcl] Current Outpatient Medications: amitriptyline (ELAVIL) 50 mg tablet, Take 1 tablet (50 mg total) by mouth nightly., Disp: , Rfl: AMLODIPINE BESYLATE, BULK, MISC, by miscellaneous route., Disp: , Rfl: atorvastatin (LIPITOR) 40 mg tablet, Take 1 tablet (40 mg total) by mouth in the morning., Disp: , Rfl: B-complex with vitamin C tablet, Take 1 tablet by mouth in the morning., Disp: , Rfl: clonazePAM (KlonoPIN) 0.5 mg tablet, Take 1 tablet (0.5 mg total) by mouth nightly. Taking 0.5 PRN and 1 tablet nightly, Disp: , Rfl: ergocalciferol (DRISDOL) 1,250 mcg (50,000 unit) capsule, Take 1 capsule (50,000 Units total) by mouth once a week., Disp: , Rfl: fenofibrate (LOFIBRA) 54 mg tablet, Take 1 tablet (54 mg total) by mouth in the morning., Disp: , Rfl: ferrous sulfate 325 (65 FE) mg tablet, Take 1 tablet (325 mg total) by mouth daily with breakfast., Disp: , Rfl: lipase/protease/amylase (CREON ORAL), Take by mouth., Disp: , Rfl: mepolizumab (NUCALA SUBQ), Inject under the skin., Disp: , Rfl: metFORMIN (FORTAMET) 500 MG (OSM) 24 hr tablet, Take 1 tablet (500 mg total) by mouth daily with breakfast., Disp: , Rfl: montelukast (SINGULAIR) 10 mg tablet, Take 1 tablet (10 mg total) by mouth nightly., Disp: , Rfl: naloxone (NARCAN) 4 mg/actuation spray,non-aerosol nasal spray, Administer 1 spray (4 mg total) into alternating nostrils as needed for opioid reversal., Disp: 1 each, Rfl: 1 NON FORMULARY, Med Name: Sophie Raymundo, Disp: , Rfl: omeprazole (PriLOSEC) 40 mg capsule, Take 1 capsule (40 mg total) by mouth in the morning., Disp: , Rfl: prazosin (MINIPRESS) 1 mg capsule, Take 1 capsule (1 mg total) by mouth nightly., Disp: , Rfl: tetracycline (ACHROMYCIN,SUMYCIN) 250 mg capsule, Take 1 capsule (250 mg total) by mouth in the morning and 1 capsule (250 mg total) at noon and 1 capsule (250 mg total) in the evening and 1 capsule (250 mg total) before bedtime., Disp: , Rfl: traMADoL (ULTRAM) 50 mg tablet, Take 1-2 tabs po bid prn. Filldate 10/28/22, Disp: 120 tablet, Rfl: 0 traMADol ER (ULTRAM-ER) 100 mg 24 hr tablet, Take 1 tablet (100 mg total) by mouth daily as needed for pain for up to 30 days. Filldate 10/28/23, Disp: 30 tablet, Rfl: 0 zinc gluconate 50 mg tablet, Take 1 tablet (50 mg total) by mouth in the morning., Disp: , Rfl: ziprasidone (GEODON) 20 mg capsule, Take 1 capsule (20 mg total) by mouth in the morning and 1 capsule (20 mg total) in the evening. Take with meals., Disp: , Rfl: ziprasidone (GEODON) injection, Inject 1 mL (20 mg total) into the appropriate muscle once. (Patient not taking: Reported on 09/26/2023), Disp: , Rfl: History reviewed. No pertinent family history. Social History Socioeconomic History Marital status: Spouse name: Not on file Number of children: Not on file Years of education: Not on file Highest education level: Not on file Occupational History Not on file Tobacco Use Smoking status: Never Smokeless tobacco: Never Vaping Use Vaping Use: Never used Substance and Sexual Activity Alcohol use: Never Drug use: Never Sexual activity: Not on file Other Topics Concern Not on file Social History Narrative Not on file Social Determinants of Health Financial Resource Strain: Not on file Food Insecurity: No Food Insecurity (11/21/2023) Hunger Screening Food Insecurity - Worry: Never True Food Insecurity - Inability: Never True Transportation Needs: Not on file Physical Activity: Not on file Stress: Not on file Social Connections: Not on file Interpersonal Safety: Not on file Housing Instability: Not on file Review of Systems: Review of Systems Constitutional: Negative. Negative for chills, fever and malaise/fatigue. HENT: Negative. Eyes: Negative. Cardiovascular: Negative. Negative for chest pain. Respiratory: Negative. Negative for cough and shortness of breath. Endocrine: Negative. Hematologic/Lymphatic: Negative. Skin: Negative. Musculoskeletal: Positive for back pain, neck pain and stiffness. Negative for falls. SCS Gastrointestinal: Negative. Negative for bowel incontinence. Concerns of not emptying bowel or bladder, enc to call pcp Genitourinary: Positive for frequency. Negative for bladder incontinence. Neurological: Positive for numbness and tingling. Negative for weakness. Psychiatric/Behavioral: Positive for depression (hx of bipolar). Allergic/Immunologic: Negative. Physical Exam: BP 121/78 Pulse 84 Resp 18 Ht 177.8 cm (5' 10 ) Wt 93 kg (205 lb) BMI 29.41 kg/m Positive Rajesh's, Ganslen's, thigh-thrust test and SI compression test bilateral Positive Hema test bilateral Increased pain with palpation over the thoracic spine Increased thoracic pain with bending, lifting, and sitting for an extended period of time. Record/Diagnostics Review: Thoracic CT (08/24) THORACIC SPINE FINDINGS: Vertebral augmentation changes at T5, T6, T7, T8, and T9. Exaggerated kyphosis with the apex at the T6-T7 level. No evidence of acute compression deformity. Spinal stimulator lead tip terminates at the T7-T8 level. Intervertebral discs: No more than mild disc bulge or mild posterior element degeneration. Mild multilevel degenerative disc disease most associated with the mid thoracic spine. Anterior osteophytosis with bridging osteophytes from T4 to T10. Trauma: No fractures or dislocations. No significant spinal canal stenosis. No significant foraminal stenosis. Perivertebral Soft Tissues: Normal. Visualized Surrounding Organs and Viscera: Unremarkable. IMPRESSION: Vertebral augmentation changes from T5 to T9. No acute or subacute abnormalities of the thoracic spine. Mild multilevel degenerative disc disease most associated with the mid thoracic spine. Anterior osteophytosis with bridging osteophytes from T4 to T10. Lumbar CT (09/13) Vertebral bodies: Vertebral augmentation changes at L3. Vertebral body heights are otherwise maintained. Intervertebral discs: Disc osteophyte complex at L2-L3. The remaining intervertebral discs are normal no more than mild posterior element degeneration. Spinal levels: T12-L1: No spinal canal or foraminal stenosis. L1-L2: No spinal canal or foraminal stenosis. L2-L3: Posteriorly projecting disc osteophyte complex without significant spinal canal stenosis. The right neural foramen is very mildly narrowed secondary to disc osteophyte complex and mild facet arthropathy. L3-L4: No spinal canal or foraminal stenosis. L4-L5: Mild circumferential disc bulge without significant spinal canal or neural foraminal stenosis. L5-S1: Mild circumferential disc bulge. No spinal canal or neural foraminal stenosis. Sacroiliac Joints: Mild degenerative changes Perivertebral Soft Tissues: Normal. Visualized Surrounding Organs and Viscera: Unremarkable. IMPRESSION: No significant changes compared to prior from 08/02/2023. Vertebral augmentation changes at L3. Mild degenerative disc disease at L2-L3 with posterior projecting disc osteophyte complex resulting in very mild neural foraminal stenosis on the right. Assessment: 1. Thoracic spondylosis without myelopathy 2. Postlaminectomy syndrome, lumbar region 3. Lumbosacral spondylosis without myelopathy No orders of the defined types were placed in this encounter. Treatment Plan: DISCUSSION: Treatment options discussed with patient and all questions answered to patient's satisfaction. OARRS Review: Reviewed . TREATMENT OPTIONS: Continue current medication management, has been stable and compliant. Thoracic Medial branch blocks scheduled for this coming Sunday the . Follow up after procedure and when medications are due to be refilled. Scribe Statement: Scribed for and in the presence of Fabiola DALE by Valentina Dietz. Provider Statement: I, Fabiola Romano personally performed the services described in the documentation, as scribed by Valentina Dietz in my presence, and it is both accurate and complete. Valentina Dietz RN 11/21/23 1430 Valentina Dietz RN 11/21/23 1436 CH[facility] 11/21/23 1442 documented in this encounter [facility] 10-24-2023 History of Present illness Narrative HPI: Pt presents today for his routine OV for medication assessment and refill. Back Pain This is a chronic problem. The current episode started more than 1 year ago (2001). The problem occurs constantly. The problem has been rapidly worsening since onset. The pain is present in the thoracic spine and gluteal. The quality of the pain is described as aching. The pain radiates to the right thigh, right knee, right foot, left thigh, left knee and left foot. The pain is at a severity of 8/10. The pain is severe. The pain is Worse during the night. The symptoms are aggravated by twisting, stress, sitting, standing, lying down, position and bending. Stiffness is present All day. Associated symptoms include leg pain, numbness and tingling. Pertinent negatives include no bladder incontinence, bowel incontinence, chest pain, fever or weakness. (right hand, and RLE lateral) He has tried analgesics, ice, heat, chiropractic manipulation, muscle relaxant and NSAIDs (PT/HEP not helpful 2020) for the symptoms. The treatment provided no relief. Neck Pain This is a chronic problem. The current episode started more than 1 year ago. The problem occurs constantly. The problem has been waxing and waning. The pain is associated with a fall. The pain is present in the midline. The quality of the pain is described as aching and burning. The pain is at a severity of 8/10. The pain is moderate. The symptoms are aggravated by position and stress. The pain is Worse during the day. Associated symptoms include leg pain, numbness and tingling. Pertinent negatives include no chest pain, fever or weakness. He has tried oral narcotics, acetaminophen, ice, heat, chiropractic manipulation and muscle relaxants for the symptoms. The treatment provided no relief. Alin comes to the office today for his medication check and follow up of the bilateral T7-8 and T8-9 medial branch block that was performed on 10-08-23. He states he received at least 75% relief for 2 hours. He states that he was able to do more after the procedure and felt better. He wishes to proceed with MBB #2. Should he get good results from this will plan on proceeding with TRFA. Patient denies any new neurological symptoms. No bowel or bladder incontinence, no weakness, and no falling. Past Medical History: Diagnosis Date Bipolar disorder ([facility]) Chronic pain disorder Chronic pancreatitis ([facility]) H. pylori infection Low back pain Neck pain PTSD (post-traumatic stress disorder) Past Surgical History: Procedure Laterality Date #1 Bilateral Thoracic Medial branch block T7-8 and T8-9 Bilateral 10/08/2023 Performed by Joana Stratton MD at [facility] KYPHOPLASTY GALLBLADDER SURGERY INJECTION BLOCK SACROILIAC JOINT Bilateral 08/06/2023 Performed by Joana Stratton MD at [facility] tumor removed PROSTATE SURGERY SPINAL CORD STIMULATOR IMPLANT Allergies Allergen Reactions Codeine Zofran [Ondansetron Hcl] Current Outpatient Medications: amitriptyline (ELAVIL) 50 mg tablet, Take 1 tablet (50 mg total) by mouth nightly., Disp: , Rfl: AMLODIPINE BESYLATE, BULK, MISC, by miscellaneous route., Disp: , Rfl: atorvastatin (LIPITOR) 40 mg tablet, Take 1 tablet (40 mg total) by mouth in the morning., Disp: , Rfl: B-complex with vitamin C tablet, Take 1 tablet by mouth in the morning., Disp: , Rfl: clonazePAM (KlonoPIN) 0.5 mg tablet, Take 1 tablet (0.5 mg total) by mouth nightly. Taking 0.5 PRN and 1 tablet nightly, Disp: , Rfl: ergocalciferol (DRISDOL) 1,250 mcg (50,000 unit) capsule, Take 1 capsule (50,000 Units total) by mouth once a week., Disp: , Rfl: fenofibrate (LOFIBRA) 54 mg tablet, Take 1 tablet (54 mg total) by mouth in the morning., Disp: , Rfl: ferrous sulfate 325 (65 FE) mg tablet, Take 1 tablet (325 mg total) by mouth daily with breakfast., Disp: , Rfl: lipase/protease/amylase (CREON ORAL), Take by mouth., Disp: , Rfl: mepolizumab (NUCALA SUBQ), Inject under the skin., Disp: , Rfl: metFORMIN (FORTAMET) 500 MG (OSM) 24 hr tablet, Take 1 tablet (500 mg total) by mouth daily with breakfast., Disp: , Rfl: montelukast (SINGULAIR) 10 mg tablet, Take 1 tablet (10 mg total) by mouth nightly., Disp: , Rfl: naloxone (NARCAN) 4 mg/actuation spray,non-aerosol nasal spray, Administer 1 spray (4 mg total) into alternating nostrils as needed for opioid reversal., Disp: 1 each, Rfl: 1 NON FORMULARY, Med Name: Sophie Raymundo, Disp: , Rfl: omeprazole (PriLOSEC) 40 mg capsule, Take 1 capsule (40 mg total) by mouth in the morning., Disp: , Rfl: prazosin (MINIPRESS) 1 mg capsule, Take 1 capsule (1 mg total) by mouth nightly., Disp: , Rfl: tetracycline (ACHROMYCIN,SUMYCIN) 250 mg capsule, Take 1 capsule (250 mg total) by mouth in the morning and 1 capsule (250 mg total) at noon and 1 capsule (250 mg total) in the evening and 1 capsule (250 mg total) before bedtime., Disp: , Rfl: traMADoL (ULTRAM) 50 mg tablet, Take 1-2 tabs po bid prn, Disp: 120 tablet, Rfl: 0 traMADol ER (ULTRAM-ER) 100 mg 24 hr tablet, Take 1 tablet (100 mg total) by mouth daily as needed for pain for up to 30 days., Disp: 30 tablet, Rfl: 0 zinc gluconate 50 mg tablet, Take 1 tablet (50 mg total) by mouth in the morning., Disp: , Rfl: ziprasidone (GEODON) 20 mg capsule, Take 1 capsule (20 mg total) by mouth in the morning and 1 capsule (20 mg total) in the evening. Take with meals., Disp: , Rfl: ziprasidone (GEODON) injection, Inject 1 mL (20 mg total) into the appropriate muscle once. (Patient not taking: Reported on 09/26/2023), Disp: , Rfl: History reviewed. No pertinent family history. Social History Socioeconomic History Marital status: Spouse name: Not on file Number of children: Not on file Years of education: Not on file Highest education level: Not on file Occupational History Not on file Tobacco Use Smoking status: Never Smokeless tobacco: Never Vaping Use Vaping Use: Never used Substance and Sexual Activity Alcohol use: Never Drug use: Never Sexual activity: Not on file Other Topics Concern Not on file Social History Narrative Not on file Social Determinants of Health Financial Resource Strain: Not on file Food Insecurity: No Food Insecurity (10/24/2023) Hunger Screening Food Insecurity - Worry: Never True Food Insecurity - Inability: Never True Transportation Needs: Not on file Physical Activity: Not on file Stress: Not on file Social Connections: Not on file Interpersonal Safety: Not on file Review of Systems: Review of Systems Constitutional: Negative. Negative for chills, fever and malaise/fatigue. HENT: Negative. Eyes: Negative. Cardiovascular: Negative. Negative for chest pain. Respiratory: Negative. Negative for cough and shortness of breath. Endocrine: Negative. Hematologic/Lymphatic: Negative. Skin: Negative. Musculoskeletal: Positive for back pain, neck pain and stiffness. Negative for falls. SCS Gastrointestinal: Negative. Negative for bowel incontinence. Concerns of not emptying bowel or bladder, enc to call pcp Genitourinary: Positive for frequency. Negative for bladder incontinence. Neurological: Positive for numbness and tingling. Negative for weakness. Psychiatric/Behavioral: Positive for depression (hx of bipolar). Allergic/Immunologic: Negative. Physical Exam: BP 128/85 Pulse 82 Resp 18 Ht 177.8 cm (5' 10 ) Wt 93 kg (205 lb) BMI 29.41 kg/m Positive Rajesh's, Ganslen's, thigh-thrust test and SI compression test bilateral Positive Hema test bilateral Increased pain with palpation over the thoracic spine Increased thoracic pain with bending, lifting, and sitting for an extended period of time. Record/Diagnostics Review: Thoracic CT (08/24) THORACIC SPINE FINDINGS: Vertebral augmentation changes at T5, T6, T7, T8, and T9. Exaggerated kyphosis with the apex at the T6-T7 level. No evidence of acute compression deformity. Spinal stimulator lead tip terminates at the T7-T8 level. Intervertebral discs: No more than mild disc bulge or mild posterior element degeneration. Mild multilevel degenerative disc disease most associated with the mid thoracic spine. Anterior osteophytosis with bridging osteophytes from T4 to T10. Trauma: No fractures or dislocations. No significant spinal canal stenosis. No significant foraminal stenosis. Perivertebral Soft Tissues: Normal. Visualized Surrounding Organs and Viscera: Unremarkable. IMPRESSION: Vertebral augmentation changes from T5 to T9. No acute or subacute abnormalities of the thoracic spine. Mild multilevel degenerative disc disease most associated with the mid thoracic spine. Anterior osteophytosis with bridging osteophytes from T4 to T10. Lumbar CT (09/13) Vertebral bodies: Vertebral augmentation changes at L3. Vertebral body heights are otherwise maintained. Intervertebral discs: Disc osteophyte complex at L2-L3. The remaining intervertebral discs are normal no more than mild posterior element degeneration. Spinal levels: T12-L1: No spinal canal or foraminal stenosis. L1-L2: No spinal canal or foraminal stenosis. L2-L3: Posteriorly projecting disc osteophyte complex without significant spinal canal stenosis. The right neural foramen is very mildly narrowed secondary to disc osteophyte complex and mild facet arthropathy. L3-L4: No spinal canal or foraminal stenosis. L4-L5: Mild circumferential disc bulge without significant spinal canal or neural foraminal stenosis. L5-S1: Mild circumferential disc bulge. No spinal canal or neural foraminal stenosis. Sacroiliac Joints: Mild degenerative changes Perivertebral Soft Tissues: Normal. Visualized Surrounding Organs and Viscera: Unremarkable. IMPRESSION: No significant changes compared to prior from 08/02/2023. Vertebral augmentation changes at L3. Mild degenerative disc disease at L2-L3 with posterior projecting disc osteophyte complex resulting in very mild neural foraminal stenosis on the right. Assessment: No diagnosis found. No orders of the defined types were placed in this encounter. Treatment Plan: DISCUSSION: Treatment options discussed with patient and all questions answered to patient's satisfaction. OARRS Review: Reviewed . TREATMENT OPTIONS: Continue current medication management, has been stable and compliant. Will authorize and schedule a second bilateral T7-8 and T8-9 Medial branch Block. Received significant relief from the first block for 2 hours. Monitored Anesthesia Care is medically necessary for the procedure due to the patient having an inability to remain motionless . We will follow up with the patient in the clinic two weeks after the procedure. Tramadol pill count completed at today's office visit. Dose: 50 mg with 8 left and 100mg with 28 left Quantity Dispensed 150 total Quantity Remaining 36 total Fill date on prescription bottle 09/28/23 appropriate Patient educated to bring medication to every office visit. Scribe Statement: Scribed for and in the presence of Fabiola DALE by Valentina Dietz. Provider Statement: I, Fabiola Romano personally performed the services described in the documentation, as scribed by Valentina Dietz in my presence, and it is both accurate and complete. Valentina Dietz RN 10/24/23 [id number] [address] 10/24/23 1500 documented in this encounter [facility] 07-05-2023 History of Present illness Narrative Instructed on objectives and procedure of lexiscan/cardiolite stress test. documented in this encounter [facility] [employer] Evaluation + Plan note No data available for this section [facility] Evaluation note Diagnosis Diarrhea, unspecified type documented in this encounter [facility]* Diagnosis Preop cardiovascular exam Pre-operative cardiovascular examination Primary hypertension Unspecified essential hypertension Mixed hyperlipidemia Intermittent chest pain Chest pain, unspecified documented in this encounter [facility]* Diagnosis Thoracic spondylosis- Primary Postlaminectomy syndrome, lumbar region Encounter for long-term opiate analgesic use Encounter for long-term (current) use of other medications documented in this encounter [facility] [email or web address] [facility] Diagnosis Thoracic spondylosis without myelopathy- Primary Thoracic spondylosis without myelopathy- Primary Thoracic spondylosis without myelopathy documented in this encounter [facility] [email or web address] SystemEvaluation note* Diagnosis Thoracic spondylosis without myelopathy- Primary Thoracic spondylosis without myelopathy- Primary Postlaminectomy syndrome, lumbar region Lumbosacral spondylosis without myelopathy Thoracic spondylosis without myelopathy [facility]* Diagnosis Other fatigue Chronic pain syndrome Anemia, unspecified type Low vitamin D level documented in this encounter [facility]* Diagnosis Thoracic spondylosis without myelopathy- Primary Postlaminectomy syndrome, lumbar region Encounter for long-term opiate analgesic use Encounter for long-term (current) use of other medications [facility] Diagnosis Thoracic spondylosis without myelopathy- Primary Postlaminectomy syndrome, lumbar region Encounter for long-term opiate analgesic use Encounter for long-term (current) use of other medications documented [facility]* Diagnosis Nonspecific chest pain- Primary documented in this encounter [facility]ageEvaluwilming[facility] note* Diagnosis Cervical spinal stenosis Spinal stenosis in cervical region documented in this encounter [facility]ageEvaluwilming[facility] note* Diagnosis Thoracic myofascial strain, initial encounter- Primary Left wrist sprain, initial encounter Closed nondisplaced fracture of phalanx of left index finger, unspecified phalanx, initial encounter documented in this encounter [facility] note* Diagnosis Anemia, unspecified type Vitamin D deficiency Unspecified vitamin D deficiency Other fatigue Prostate cancer screening Special screening for malignant neoplasm of prostate documented in this encounter [facility] note* Diagnosis Cyst and pseudocyst of pancreas- Primary documented in this encounter [facility] note* Diagnosis IPMN (intraductal papillary mucinous neoplasm)- Primary Neoplasm of unspecified nature of digestive system documented in this encounter [facility] note* Diagnosis Cyst and pseudocyst of pancreas documented in this encounter [facility] note* Diagnosis Other chronic pancreatitis (HCC)- Primary Epigastric pain Abdominal pain, epigastric documented in this encounter [facility] note* Diagnosis Chest wall contusion, left, initial encounter- Primary Strain of tendon of left half of anterior chest wall documented in this encounter [facility] note* Diagnosis Left-sided chest wall pain- Primary Painful respiration Rib contusion, left, sequela documented in this encounter [facility] note* Diagnosis IPMN (intraductal papillary mucinous neoplasm)- Primary Neoplasm of unspecified nature of digestive system IPMN (intraductal papillary mucinous neoplasm) Neoplasm of unspecified nature of digestive system documented in this encounter [facility] note* Diagnosis IPMN (intraductal papillary mucinous neoplasm)- Primary Neoplasm of unspecified nature of digestive system Preoperative examination Preoperative examination, unspecified IPMN (intraductal papillary mucinous neoplasm) Neoplasm of unspecified nature of digestive system documented in this encounter [facility] note* Diagnosis Severe persistent asthma, unspecified whether complicated- Primary 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 Dong's esophagus Other chronic pancreatitis (HCC) Fatty liver Other chronic nonalcoholic liver disease History of bowel resection 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 IPMN (intraductal papillary mucinous neoplasm) Neoplasm of unspecified nature of digestive system documented in this encounter [facility] note* Diagnosis Severe persistent asthma, unspecified whether complicated- Primary 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 Reports frequent bowel movements. * Assessment & Plan Note - Vito Duncan MD - 08/22/2024 11:40 AM EDT Associated Problem(s): Fatty liver ALT / AST normal most recently. On low-fat pancreatitis diet. * Assessment & Plan Note - Vito Duncan MD - 08/22/2024 11:05 AM EDT Associated Problem(s): Chronic pancreatitis (HCC) history of acute recurrent pancreatitis of unclear etiology. He is status postcholecystectomy with his first attack of pancreatitis occuring about 7 years ago. He had an endoscopic ultrasound which revealed a questionable pancreatic cystic lesion at the tail of the pancreas. CT scan of abdomen withpancreatic protocol revealed dilated pancreatic duct up to 1.3 cm at the tail of the pancreas suspicious for intraductal papillary mucinous neoplasm. Now scheduled for total pancreatectomy without autoislet 08/28/24. * Assessment & Plan Note - Vito Duncan MD - 08/22/2024 11:04 AM EDT Associated Problem(s): Type 2 diabetes mellitus (HCC) Well controlled diabetes with A1C 6.1 01/2024. On insulin and metformin. * Assessment & Plan Note - Vito Duncan MD - 08/22/2024 10:59 AM EDT Associated Problem(s): Dong's esophagus EGD 07/28/24 with Esophageal mucosal changes secondary to established long- segment Dong's disease. On omeprazole, asymptomatic. 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 No extrapulmonary manifestations. * Assessment & Plan Note - Vito Duncan MD - 08/22/2024 10:54 AM EDT Associated Problem(s): Severe persistent asthma Eosinophilic asthma, with previous episodes of bronchitis and pneumonia. On Nucala injections and inhalers per immunology / pulmonology. Well controlled, no recent flares. 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 Dong's esophagus Other chronic pancreatitis (HCC) Fatty liver Other chronic nonalcoholic liver disease History of bowel resection Preoperative examination Preoperative examination, unspecified Preoperative examination- Primary Preoperative examination, unspecified IPMN (intraductal papillary mucinous neoplasm) Neoplasm of unspecified nature of digestive system [facility] Diagnosis Severe persistent asthma, unspecified whether complicated- Primary 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 Dong's esophagus Other chronic pancreatitis (HCC) Fatty liver Other chronic nonalcoholic liver disease History of bowel resection Preoperative examination Preoperative examination, unspecified IPMN (intraductal papillary mucinous neoplasm) Neoplasm of unspecified nature of digestive system Preoperative examination Preoperative examination, unspecified IPMN (intraductal papillary mucinous neoplasm) Neoplasm of unspecified nature of digestive system 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 Dong's esophagus Other chronic pancreatitis (HCC) Fatty liver Other chronic nonalcoholic liver disease History of bowel resection Preoperative examination Preoperative examination, unspecified IPMN (intraductal papillary mucinous neoplasm) Neoplasm of unspecified nature of digestive system Preoperative examination Preoperative examination, unspecified IPMN (intraductal papillary mucinous neoplasm) Neoplasm of unspecified nature of digestive system documented in this encounter [facility] note* Diagnosis IPMN (intraductal papillary mucinous neoplasm)- Primary Neoplasm of unspecified nature of digestive system IPMN (intraductal papillary mucinous neoplasm) Neoplasm of unspecified nature of digestive system 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 Acute postoperative pain Other acute postoperative pain ABLA (acute blood loss anemia) 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 Acute postoperative pain Other acute postoperative pain GERD (gastroesophageal reflux disease) Esophageal reflux Type 2 diabetes mellitus (HCC) Type II or unspecified type diabetes mellitus without mention of complication, not stated as uncontrolled Severe persistent asthma Unspecified asthma Obesity, Class I, BMI 30-34.9 Obesity, unspecified 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 DM type 1 (diabetes mellitus, type 1) (HCC) Type I (juvenile type) diabetes mellitus without mention of complication, not stated as uncontrolled Bipolar 1 disorder (HCC) Bipolar I disorder, most recent episode (or current) unspecified 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) Posttraumatic stress disorder Acute postoperative respiratory insufficiency Other pulmonary insufficiency, not elsewhere classified, following trauma and surgery Insulin dose changed (HCC) Primary hypertension Unspecified essential hypertension Severe persistent asthma, unspecified whether complicated- Primary 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 Dong's esophagus Other chronic pancreatitis (HCC) Fatty liver Other chronic nonalcoholic liver disease History of bowel resection Preoperative examination Preoperative examination, unspecified Acute post-operative pain- Primary documented in this encounter [facility] note* Diagnosis Strain of neck muscle, initial encounter- Primary documented in this encounter [facility] note* Diagnosis IPMN (intraductal papillary mucinous neoplasm)- Primary Neoplasm of unspecified nature of digestive system IPMN (intraductal papillary mucinous neoplasm) Neoplasm of unspecified nature of digestive system 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 Acute postoperative pain Other acute postoperative pain ABLA (acute blood loss anemia) 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 Acute postoperative pain Other acute postoperative pain GERD (gastroesophageal reflux disease) Esophageal reflux Type 2 diabetes mellitus (HCC) Type II or unspecified type diabetes mellitus without mention of complication, not stated as uncontrolled Severe persistent asthma Unspecified asthma Obesity, Class I, BMI 30-34.9 Obesity, unspecified 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 DM type 1 (diabetes mellitus, type 1) (HCC) Type I (juvenile type) diabetes mellitus without mention of complication, not stated as uncontrolled Bipolar 1 disorder (HCC) Bipolar I disorder, most recent episode (or current) unspecified 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) Posttraumatic stress disorder Acute postoperative respiratory insufficiency Other pulmonary insufficiency, not elsewhere classified, following trauma and surgery Insulin dose changed (HCC) Primary hypertension Unspecified essential hypertension Severe persistent asthma, unspecified whether complicated- Primary 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 Dong's esophagus Other chronic pancreatitis (HCC) Fatty liver Other chronic nonalcoholic liver disease History of bowel resection Preoperative examination Preoperative examination, unspecified 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 documented in this encounter [facility] note* Diagnosis IPMN (intraductal papillary mucinous neoplasm)- Primary Neoplasm of unspecified nature of digestive system IPMN (intraductal papillary mucinous neoplasm) Neoplasm of unspecified nature of digestive system 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 Acute postoperative pain Other acute postoperative pain ABLA (acute blood loss anemia) 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 Acute postoperative pain Other acute postoperative pain GERD (gastroesophageal reflux disease) Esophageal reflux Type 2 diabetes mellitus (HCC) Type II or unspecified type diabetes mellitus without mention of complication, not stated as uncontrolled Severe persistent asthma Unspecified asthma Obesity, Class I, BMI 30-34.9 Obesity, unspecified 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 DM type 1 (diabetes mellitus, type 1) (HCC) Type I (juvenile type) diabetes mellitus without mention of complication, not stated as uncontrolled Bipolar 1 disorder (HCC) Bipolar I disorder, most recent episode (or current) unspecified 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) Posttraumatic stress disorder Acute postoperative respiratory insufficiency Other pulmonary insufficiency, not elsewhere classified, following trauma and surgery Insulin dose changed (HCC) Primary hypertension Unspecified essential hypertension Severe persistent asthma, unspecified whether complicated- Primary 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 Dong's esophagus Other chronic pancreatitis (HCC) Fatty liver Other chronic nonalcoholic liver disease History of bowel resection Preoperative examination Preoperative examination, unspecified 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 [facility] this [facility]* Diagnosis IPMN (intraductal papillary mucinous neoplasm)- Primary Neoplasm of unspecified nature of digestive system IPMN (intraductal papillary mucinous neoplasm) Neoplasm of unspecified nature of digestive system 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 Acute postoperative pain Other acute postoperative pain ABLA (acute blood loss anemia) 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 Acute postoperative pain Other acute postoperative pain GERD (gastroesophageal reflux disease) Esophageal reflux Type 2 diabetes mellitus (HCC) Type II or unspecified type diabetes mellitus without mention of complication, not stated as uncontrolled Severe persistent asthma Unspecified asthma Obesity, Class I, BMI 30-34.9 Obesity, unspecified 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 DM type 1 (diabetes mellitus, type 1) (HCC) Type I (juvenile type) diabetes mellitus without mention of complication, not stated as uncontrolled Bipolar 1 disorder (HCC) Bipolar I disorder, most recent episode (or current) unspecified 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) Posttraumatic stress disorder Acute postoperative respiratory insufficiency Other pulmonary insufficiency, not elsewhere classified, following trauma and surgery Insulin dose changed (HCC) Primary hypertension Unspecified essential hypertension Severe persistent asthma, unspecified whether complicated- Primary 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 Dong's esophagus Other chronic pancreatitis (HCC) Fatty liver Other chronic nonalcoholic liver disease History of bowel resection Preoperative examination Preoperative examination, unspecified IPMN (intraductal papillary mucinous neoplasm)- Primary Neoplasm of unspecified nature of digestive system documented in this encounter [facility] Discharge instructions No data available for this section [facility] InstructionsNot on filedocumented in this encounter [facility] filedocumented in this [facility]ructionsNot on filedocumented in this encounter [facility]ructionsNot on filedocumented in this encounter [facility]ructionsNot on filedocumented in this encounter [facility] No data available for this section [facility] reason for referral (narrative)* Outpatient Procedure (Routine) - New Request Specialty Diagnoses / Procedures Referred By Kwabena gray Referred To Contact [facility] Diagnoses Cyst and pseudocyst of pancreas Procedures EGD - THERAPEUTIC, EUS, OR TUBE INTERVENTIONS EGD INTRMURAL US NEEDLE ASPIRATE/[place] [address] [place] [id number] [address] Referral ID Status Reason Start Date Expiration Date Visits Requested Visits Authorized [id number] New Request Auto-Generat ed Referral 07/22/2024 07/22/2025 1 1 [facility] for referral (narrative)* Outpatient Procedure (Routine) - Closed Specialty Diagnoses / Procedures Referred By Kwabena gray Referred To Contact [facility] Diagnoses Cyst and pseudocyst of pancreas Procedures EGD - THERAPEUTIC, EUS, OR TUBE INTERVENTIONS EGD INTRMURAL US NEEDLE ASPIRATE/[place] [address] [place] [address] [address] [address] [place] [address] Referral ID Status Reason Start Date Expiration Date V isits Requested Visits Authorized [id number] Closed Auto-Generate d Referral 07/24/2024 10/21/2024 1 1 [facility] for visit Narrative* Outpatient Procedure (Routine) - Closed Specialty Diagnoses / Procedures Referred By Contac t Referred To Contact [facility] Diagnoses Cyst and pseudocyst of pancreas Procedures EGD - THERAPEUTIC, EUS, OR TUBE INTERVENTIONS EGD INTRMURAL US NEEDLE ASPIRATE/[place] [address] [place] [address] [facility] [address] [place] [address] Referral ID Status Reason Start Date Expiration Date V isits Requested Visits Authorized [id number] Closed Auto-Generate d Referral 07/24/2024 10/21/2024 1 1 [facility] Summary Purpose Family History No Family History Records FoundNo Family History Records FoundNo Family History Records FoundNo Family History Records FoundNo Family History Records Found No data available for this section No Family History Records FoundNo Family History Records FoundNo Family History Records FoundNo Family History Records Found Advance Directives No Advanced Directives Records FoundLatest Code Status on File Code Status Date Activated Date Inactivated Comments Full Code 05/19/2023 12:25 AM 05/22/2023 7:29 PM Healthcare Agents on File Name Relationship Healthcare Agent Relationship Communication [facility] Spouse Primary Decision Maker Latest Code Status on File Code Status Date Activated Date Inactivated Comments Full Code 05/19/2023 12:25 AM 05/22/2023 7:29 PM Healthcare Agents on File Name Relationship Healthcare Agent Relationship Communication January Brookfield Spouse Primary Decision Maker Healthcare Agents on File Name Relationship Healthcare Agent Relationship Communication Genoveva Brookfield Spouse Primary Decision Maker Latest Code Status on File Code Status Date Activated Date Inactivated Comments Full Code 02/07/2024 1:19 PM 02/08/2024 4:10 PM Code Status History Code Status Date Activated Date Inactivated Comments Full Code 05/19/2023 12:25 AM 05/22/2023 7:29 PM Healthcare Agents on File Name Relationship Healthcare Agent Relationship Communication January Brookfield Spouse Primary Decision Maker [facility] Healthcare Agents on File Name Relationship Healthcare Agent Relationship Communication January Brookfield Spouse Primary Decision Maker [facility] Latest Code Status on File Code Status Date Activated Date Inactivated Comments Full Code 02/07/2024 1:19 PM 02/08/2024 4:10 PM Code Status History Code Status Date Activated Date Inactivated Comments Full Code 05/19/2023 12:25 AM 05/22/2023 7:29 PM Healthcare Agents on File Name Relationship Healthcare Agent Relationship Communication January Brookfield Spouse Primary Decision Maker [facility] Healthcare Agents on File Name Relationship Healthcare Agent Relationship Communication January Brookfield Spouse Primary Decision Maker [email or web address] [facility] [place] Date Activated Date Inactivated Comments 02/07/2024 1:19 PM 02/08/2024 4:10 PM Date Activated Date Inactivated Comments 05/19/2023 12:25 AM 05/22/2023 7:29 PM Healthcare Agents on File Name Relationship Healthcare Agent Relationship Communication January [place] Spouse Primary Decision Maker [facility] Healthcare Agents on File Name Relationship Healthcare Agent Relationship Communication January [place] Spouse Primary Decision Maker [facility] Healthcare Agents on File Name Relationship Healthcare Agent Relationship Communication Genoveva [place] Spouse Primary Decision Maker [facility] Healthcare Agents on File Name Relationship Healthcare Agent Relationship Communication Genoveva [place] Spouse Primary Decision Maker [email or web address] Reason for Referral Specialty Diagnoses / Procedures Referred By Contac t Referred To Contact Radiology Diagnoses Preop cardiovascular exam Primary hypertension Mixed hyperlipidemia Intermittent chest pain Procedures Nuclear stress test with myocardial perfusion Uli Strong MD [address] [place] [address] Referral ID Status Reason Start Date Expiration Date Visits Re quested Visits Authorized [id number] Closed 06/29/2023 06/28/2024 3 3 Specialty Diagnoses / Procedures Referred By Contac t Referred To Contact Diagnoses Thoracic spondylosis Procedures Case request operating room: #2 Bilateral Thoracic Medial Branch block T7-8 and T8-9 Fabiola Romano, CARROTER-CLINICAL DOCUMENTATION NURSE [address] [facility] [address] [place] [address] Referral ID Status Reason Start Date Expiration Date V isits Requested Visits Authorized [id number] Pending Review 10/24/2023 10/23/2024 1 1 Specialty Diagnoses / Procedures Referred By Contac t Referred To Contact Diagnoses Thoracic spondylosis without myelopathy Procedures Case request operating room: #2 Bilateral Thoracic Medial Branch Block T7-8 and T8-9 Joana Stratton MD [address] [facility] [place] [address] Referral ID Status Reason Start Date Expiration Date V isits Requested Visits Authorized [id number] Pending Review 11/06/2023 11/05/2024 1 1 Specialty Diagnoses / Procedures Referred By Contac t Referred To Contact Rehabilitation Diagnoses Lumbosacral spondylosis without myelopathy Fabiola Romano, CARROTER-CLINICAL DOCUMENTATION NURSE [address] [facility] [address] [place] [address] [facility] [address] [place] [address] Referral ID Status Reason Start Date Expiration Date Visits Requested Visits Authorized [id number] Authorized Specialty Services Required 11/21/2023 11/20/2024 1 1 Scheduling Instructions PT 3 times a week for 6 weeks. Specialty Diagnoses / Procedures Referred By Contac t Referred To Contact Rehabilitation Diagnoses Thoracic spondylosis without myelopathy Joana Stratton MD [address] [place] [address] Referral ID Status Reason Start Date Expiration Date Visits Requested Visits Authorized [id number] Pending Review Specialty Services Required 12/24/2023 12/23/2024 1 1 Specialty Diagnoses / Procedures Referred By Contac t Referred To Contact Diagnoses Postlaminectomy syndrome, lumbar region Encounter for long-term opiate analgesic use Thoracic spondylosis without myelopathy Procedures Case request operating room: Bilateral thoracic Radiofrequency ablation T7-8 and T8-9 Joana Stratton MD [address] [place] [address] Referral ID Status Reason Start Date Expiration Date V isits Requested Visits Authorized [id number] Pending Review 12/24/2023 12/23/2024 1 1 Specialty Diagnoses / Procedures Referred By Contac t Referred To Contact Radiology Diagnoses Cervical spinal stenosis Procedures CT CERVICAL SPINE W CONTRAST Danica Conklin MD [address] [place] [address] Referral ID Status Reason Start Date Expiration Date Visits Re quested Visits Authorized [id number] Closed 04/17/2024 04/17/2025 1 1 Specialty Diagnoses / Procedures Referred By Contac t Referred To Contact Diagnoses IPMN (intraductal papillary mucinous neoplasm) Preoperative examination Procedures REFER TO [facility] - PREOPERATIVE OPTIMIZATION OFFICE/OUTPATIENT [facility] [place] [address] [place] [address] [place] [address] Referral ID Status Reason Start Date Expiration Date Visits Requested Visits Authorized [id number] Authorized PCP Requested Referral 08/14/2025 1 1 Specialty Diagnoses / Procedures Referred By Contac t Referred To Contact [facility] Diagnoses IPMN (intraductal papillary mucinous neoplasm) Preoperative examination Procedures ECG COMPLETE ECG ROUTINE ECG W/LEAST 12 LDS W/I&[place] [address] [place] [address] [facility] [address] [place] [address] Referral ID Status Reason Start Date Expiration Date Visits Requested Visits Authorized [id number] New Request Auto-Generat ed Referral 4 08/14/2025 1 1 Specialty Diagnoses / Procedures Referred By Contac t Referred To Contact Diagnoses IPMN (intraductal papillary mucinous neoplasm) Preoperative examination Procedures CONSULT TO [facility] OFFICE/OUTPATIENT NEW HIGH MDM 60 MINUTES Jesus Jacobson MD [id number] [place], [place] [id number] Referral ID Status Reason Start Date Expiration Date Visits Requested Visits Authorized [id number] Authorized PCP Requested Referral 4 08/14/2025 1 1 Specialty Diagnoses / Procedures Referred By Contac t Referred To Contact Pain Management Diagnoses IPMN (intraductal papillary mucinous neoplasm) Preoperative examination Procedures CONSULT TO PAIN MGT OFFICE/OUTPATIENT NEW HIGH MDM [address] [place] [address] [place] [address] Referral ID Status Reason Start Date Expiration Date Visits Requested Visits Authorized [id number] Authorized PCP Requested Referral 4 08/14/2025 1 1 Additional Source Comments (unrecognized sect ion and content) No Status Records FoundNo Status Records FoundNo Status Records FoundNo Status Records FoundNo Status Records FoundNo Status Records FoundNo Status Records FoundNo Status Records FoundNo Status Records Found INFORMATION SOURCE (unrecogn ized section and content) DATE CREATED AUTHOR 09/27/2020 [facility] DATE CREATED AUTHOR AUTHOR'S ORGANIZ ATION [facility]/04[facility]20[facility] DATE CREATED AUTHOR AUTHOR'S ORGANIZ ATION 05/26/2024 [facility] DATE CREATED AUTHOR AUTHOR'S ORGANIZ ATION 05/29/2024 [facility] DATE CREATED AUTHOR AUTHOR'S ORGANIZ ATION 05/31/2024 [facility] DATE CREATED AUTHOR AUTHOR'S ORGANIZ ATION 07/03/2024 [facility] DATE CREATED AUTHOR AUTHOR'S ORGANIZ ATION 07/13/2024 [facility] DATE CREATED AUTHOR AUTHOR'S ORGANIZ ATION 09/08/2024 [facility] DATE CREATED AUTHOR AUTHOR'S ORGANIZ ATION 10/05/2024 [facility] Care Teams (unrecognized sec tion and content) 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 Start Date End Date Eliana Springer APRN - CNP [address] [place] [address] PCP - General Certified Nurse Practitioner 04/23/23 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 Start Date End Date Eliana Springer APRN - CNP [address] [place] [address] PCP - General Certified Nurse Practitioner 04/23/23 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 Start Date End Date Eliana Springer APRN-CNP [address] [facility] [place] [address] PCP - General Nurse Practitioner 07/16/23 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 Start Date End Date Eliana Springer APRN-CNP [address] [facility] [place] [address] PCP - General Nurse Practitioner 07/16/23 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 Start Date End Date Eliana Springer APRN-CNP [address] [facility] [place] [address] PCP - General Nurse Practitioner 07/16/23 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 Start Date End Date Eliana Springer APRN-CLINICAL DOCUMENTATION NURSE [address] [facility] [place] [address] PCP - General Nurse Practitioner 07/16/23 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 Start Date End Date Eliana Springer APRN - CLINICAL DOCUMENTATION NURSE [address] [facility] [place] [address] PCP - General Certified Nurse Practitioner 04/23/23 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 Start Date End Date Eliana Springer APRN-CNP [address] [facility] [place] [address] PCP - General Nurse Practitioner 07/16/23 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 Start Date End Date Eliana Springer APRN-CNP [address] [facility] [place] [address] PCP - General Nurse Practitioner 07/16/23 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 Start Date End Date Eliana Springer APRN - CNP [address] [facility] [place] [address] PCP - General Certified Nurse Practitioner 04/23/23 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 Start Date End Date Eliana Springer APRN - CNP [address] [facility] [place] [address] PCP - General Certified Nurse Practitioner 04/23/23 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 Start Date End Date Eliana Springer APRN - CNP [address] [facility] [place] [address] PCP - General Certified Nurse Practitioner 04/23/23 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 Start Date End Date Eliana Springer APRN - CNP [address] [facility] [place] [address] PCP - General Certified Nurse Practitioner 04/23/23 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 Start Date End Date Eliana Springer APRN - CNP [address] [facility] [place] [address] PCP - General Certified Nurse Practitioner 04/23/23 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 Start Date End Date Eliana Springer Stacia, CARROTER - CLINICAL DOCUMENTATION NURSE [address] [place] [address] PCP - General Certified Nurse Practitioner 04/23/23 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 Start Date End Date Wesly Davies MD [address] [place], [place] [id number] Referring Gastroenterology 07/16/24 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 Start Date End Date Wesly Davies MD [address] [place] [address] Referring Gastroenterology 07/16/24 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 Start Date End Date Wesly Davies MD [address] [place] [address] Referring Gastroenterology 07/16/24 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 Start Date End Date Wesly Davies MD [address] [place] [address] Referring Gastroenterology 07/16/24 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 Start Date End Date Wesly Davies MD [address] [place] [address] Referring Gastroenterology 07/16/24 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 Start Date End Date Wesly Davies MD [address] [place] [place], [place] [id number] Referring Gastroenterology 07/16/24 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 Start Date End Date Wesly Davies MD [address] [place], [place] [id number] Referring Gastroenterology 07/16/24 Wesly Davies MD [address] [place], [place] [id number] Referring Gastroenterology 07/25/24 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 Start Date End Date Wesly Davies MD [address] [place], [place] [id number] Referring Gastroenterology 07/16/24 Wesly Davies MD [address] [place], [place] [id number] Referring Gastroenterology 07/25/24 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 Start Date End Date Wesly Davies MD [address] [place], [place] [id number] Referring Gastroenterology 07/16/24 Wesly Davies MD [address] [place], [place] [id number] Referring Gastroenterology 07/25/24 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 Start Date End Date Wesly Davies MD [address] [place], [place] [id number] Referring Gastroenterology 07/16/24 Wesly Davies MD [address] [place] [id number] 380- Referring Gastroenterology 07/25/24 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 Start Date End Date Eliana Springer APRN - CLINICAL DOCUMENTATION NURSE [address] [place] [address] PCP - General Certified Nurse Practitioner 04/23/23 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 Start Date End Date Wesly Davies MD [address] [place] [address] Referring Gastroenterology 07/16/24 Wesly Davies MD [address] [place] [address] Referring Gastroenterology 07/25/24 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 Start Date End Date Wesly Davies MD [address] [place] [address] Referring Gastroenterology 07/16/24 Wesly Davies MD [address] [place] [address] Referring Gastroenterology 07/25/24 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 Start Date End Date Wesly Davies MD [address] [place], [place] [id number] Referring Gastroenterology 07/16/24 Wesly Davies MD [address] [place] [address] Referring Gastroenterology 07/25/24 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 Start Date End Date Eliana Springer APRN.CLINICAL DOCUMENTATION NURSE [address] [place] [address] PCP - General Family Medicine 08/15/24 Wesly Davies MD [address] [place] [address] Referring Gastroenterology 07/16/24 Wesly Davies MD [address] [facility] [address] [place] [id number] Referring Gastroenterology 07/25/24 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 Start Date End Date Eliana Springer, CARROTER.CLINICAL DOCUMENTATION NURSE [address] [place] [address] PCP - General Family Medicine 08/15/24 Wesly Davies MD [address] [facility] [address] [place], [place] [phone] Referring Gastroenterology 07/16/24 Wesly Davies MD [address] [facility] [place] [address] [place] [address] Referring Gastroenterology 07/25/24 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 Start Date End Date Eliana Springer, CARROTER.CLINICAL DOCUMENTATION NURSE [address] [place] [address] PCP - General Family Medicine 08/15/24 Wesly Davies MD [facility] [place] [id number] Referring Gastroenterology 07/16/24 Wesly Davies MD [facility] [facility] [place] [address] [place] [address] Referring Gastroenterology 07/25/24 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 Start Date End Date Eliana Springer, CARROTER.CLINICAL DOCUMENTATION NURSE [address] [place] [address] PCP - General Family Medicine 08/15/24 Wesly Davies MD [address] [facility] [place] [address] Referring Gastroenterology 07/16/24 Wesly Davies MD [address] [facility] [place] [address] Referring Gastroenterology 07/25/24 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 Start Date End Date Eliana Springer, CARROTER.CLINICAL DOCUMENTATION NURSE [address] [place], [place] 7053483 PCP - General Family Medicine 08/15/24 Wesly Davies MD [address] [facility] [place] [address] Referring Gastroenterology 07/16/24 Wesly Davies MD [address] [facility] [place] [address] Referring Gastroenterology 07/25/24 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 Start Date End Date Eliana Springer, CARROTER.CLINICAL DOCUMENTATION NURSE [address] [place] [address] PCP - General Family Medicine 08/15/24 Wesly Davies MD [address] [place] [address] Referring Gastroenterology 07/16/24 Wesly Davies MD [address] [place] [address] Referring Gastroenterology 07/25/24 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 Start Date End Date Eliana Springer, CARROTER.CLINICAL DOCUMENTATION NURSE [address] [place], [place] 2351683 PCP - General Family Medicine 08/15/24 Wesly Davies MD [address] [place], [place] [id number] Referring Gastroenterology 07/16/24 Wesly Davies MD [address] [place], [place] [id number] Referring Gastroenterology 07/25/24 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 Start Date End Date Eliana Springer CARROTER.CLINICAL DOCUMENTATION NURSE [address] [place], [place] 1072383 PCP - General Family Medicine 08/15/24 Wesly Davies MD [address] [facility] [place] [id number] Referring Gastroenterology 07/16/24 Wesly Davies MD [address] [place], [place] [id number] Referring Gastroenterology 07/25/24 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 Start Date End Date Eliana Springer APRN - CLINICAL DOCUMENTATION NURSE [address] [place] [address] PCP - General Certified Nurse Practitioner 04/23/23 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 Start Date End Date Eliana Springer CARROTER.CLINICAL DOCUMENTATION NURSE [address] [place] [address] PCP - General Family Medicine 08/15/24 Wesly Davies MD [address] [place], [place] [id number] Referring Gastroenterology 07/16/24 Wesly Davies MD [address] [facility] [address] [place], [place] [id number] Referring Gastroenterology 07/25/24 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 Start Date End Date Eliana Springer APRN.CLINICAL DOCUMENTATION NURSE [address] [place] [address] PCP - General Family Medicine 08/15/24 Wesly Davies MD [address] [place] [place] [address] Referring Gastroenterology 07/16/24 Wesly Davies MD [address] [facility] [place] [address] [place] [address] Referring Gastroenterology 07/25/24 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 Start Date End Date Eliana Springer, CARROTER.CLINICAL DOCUMENTATION NURSE [address] [place] [address] PCP - General Family Medicine 08/15/24 Wesly Davies MD [address] [facility] [place] [address] Referring Gastroenterology 07/16/24 Wesly Davies MD [address] [facility] [place] [address] Referring Gastroenterology 07/25/24 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 Start Date End Date Eliana Springer CARROTER.CLINICAL DOCUMENTATION NURSE [address] [place] [address] PCP - General Family Medicine 08/15/24 Wesly Davies MD [address] [facility] [place] [address] Referring Gastroenterology 07/16/24 Wesly Davies MD [address] [facility] [address] [place], [place] [id number] Referring Gastroenterology 07/25/24 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 Start Date End Date Eliana Springer, CARROTER.CLINICAL DOCUMENTATION NURSE [address] [place] [address] [id number] PCP - General Family Medicine 08/15/24 Wesly Davies MD [address] [facility] [address] [place], [place] [id number] Referring Gastroenterology 07/16/24 Wesly Davies MD [address] [facility] [place] [address] [place] [address] Referring Gastroenterology 07/25/24 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 Start Date End Date Eliana Springer, CARROTER.CLINICAL DOCUMENTATION NURSE [address] [place] [address] PCP - General Family Medicine 08/15/24 Wesly Davies MD [address] [facility] [place] [id number] Referring Gastroenterology 07/16/24 Wesly Davies MD [address] [facility] [place] [address] Referring Gastroenterology 07/25/24 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 Start Date End Date Eliana Springer, CARROTER.CLINICAL DOCUMENTATION NURSE [address] [place], [place] 0908383 PCP - General Family Medicine 08/15/24 Wesly Davies MD [address] [facility] [place] [address] [place] [address] Referring Gastroenterology 07/16/24 Wesly Davies MD [address] [facility] [place] [address] [place] [address] Referring Gastroenterology 07/25/24 Reason for Visit (unrecogniz ed section and content) Specialty Diagnoses / Procedures Referred By Contac t Referred To Contact Radiology Diagnoses Preop cardiovascular exam Primary hypertension Mixed hyperlipidemia Intermittent chest pain Procedures Nuclear stress test with myocardial perfusion Uli Strong MD [address] [place] [address] Referral ID Status Reason Start Date Expiration Date Visits Re quested Visits Authorized [id number] Closed 06/29/2023 06/28/2024 3 3 Reason Comments Back Pain Neck Pain Reason Comments Back Pain Neck Pain Reason Comments Back Pain Reason Comments Chest Pain Patient presents wit h complaint of chest pain with 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 Patient reports that the pain was substernal with radiation to left shoulder and shortness of breath. 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 Patient took tramadol and tylenol without relief. [facility] and reports I am supposed to have surgery to get it removed but it hasn't been scheduled Reason Comments Fall Patient states he wa s hanging up some trim yesterday and fell down approximately 6-8 stairs and landed on the left side of his ribs. Patient complains of left rib pain. Reason Comments Patient Update Reason Comments Rib Pain (injury) Pt reports fall down 1/2 flight of stairs on . Pt was seen on Sunday , admin steroid and muscle relaxer. Chest xray clear at that time. Pt reports worsening left rib pain. Muscle relaxer's not working per pt Reason Comments 08/22/2024 pre op 08/28/2024 CURE Total pa nc Reason Comments New Specialty Diagnoses / Procedures Referred By Contramez t Referred To Contact Diagnoses IPMN (intraductal papillary mucinous neoplasm) Preoperative examination Procedures REFER TO [facility] - PREOPERATIVE OPTIMIZATION OFFICE/OUTPATIENT NEW HIGH MDM [address] [place] [address] [place] [id number] Referral ID Status Reason Start Date Expiration Date V isits Requested Visits Authorized [id number] Closed PCP Requested Referral 08/14/2024 08/14/2025 1 1 Reason Comments Radio Gen A21 Reason Comments Research IRB 3164 Reason Comments Patient Update Patient Question Reason Comments Neck Pain Pt states he has sti ff neck. 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 Reason Comments Follow Up Reason Comments Forms Reason Comments Insurance Authorization Insulin Pump [ C MEDICARE] Reason Onset Date Comments Refill Request 09/19/2024 Reason Comments Insulin pump start training Reason Comments Post Op Reason Comments Forms [facility] Insulin pump Reason Comments Diabetes Scheduled Active and Recently Administ ered Medications (unrecognized section and content) Medication Order 03/15/2024 03/16/2024 03/17/2024 aspirin chewable tablet 324 mg (COMPLETED) 324 mg, Oral, ONCE, 1 dose, On Sun03/17/24 at 1430 1430 (Given - Provid er: Susu Acevedo RN) ketorolac (TORADOL) injection 30 mg (COMPLETED) 30 mg, IntraVENous, ONCE, 1 dose, On Sun03/17/24 at 1515, Do not administer for more than 5 days. 1505 (Given - Provid er: Susu Acevedo RN) PRN Medication Order 03/15/2024 03/16/2024 03/17/2024 nitroGLYCERIN (NITROSTAT) SL tablet 0.4 mg 0.4 mg, SubLINGual, EVERY 5 MIN PRN, Starting on 03/17/24 at 1420, Until Discontinued, Chest pain, Place 1 tablet under tongue upon chest pain, wait 5 minutes and may repeat up to 3 doses in 15 minutes. Do not crush or break. 1433 (Given - Provid er: Susu Acevedo RN) Scheduled Medication Order 08/03/2024 08/04/2024 08/05/2024 HYDROmorphone HCl PF (DILAUDID) injection 1 mg (COMPLETED) 1 mg, IntraVENous, ONCE, 1 dose, On Sun08/05/24 at 1945, If oral and IV narcotics ordered, use oral first and only use IV if oral is ineffective or cannot take oral. Do Not give oral and IV within 1 hour of each other unless specifically ordered. 1954 (Given - Provid er: Jess Hackett RN) metoclopramide (REGLAN) injection 10 mg (COMPLETED) 10 mg, IntraVENous, ONCE, 1 dose, On Sun08/05/24 at 1945, IV Push: Max 10 mg over 1-2 minutes. 1952 (Given - Provid er: Jess Hackett RN) sodium chloride 0.9 % bolus 1,000 mL (COMPLETED) 1,000 mL (10.3 mL/kg), IntraVENous, at 983.6 mL/hr, Administer over 61 Minutes, ONCE, On Sun08/05/24 at 1945, For 1 dose 1953 (New Bag - Prov ider: Jess Hackett RN)2099 (Stopped - Provider: Lucy Alatorre RN) Scheduled Medication Order 08/06/2024 08/07/2024 08/08/2024 methylPREDNISolone acetate (DEPO-MEDROL) injection 40 mg (COMPLETED) 40 mg, IntraMUSCular, ONCE, 1 dose, On Sun08/08/24 at 1415 1409 (Given - Provid er: Damián Mancia RN) Scheduled Medication Order 08/09/2024 08/10/2024 08/11/2024 ketorolac (TORADOL) injection 30 mg (COMPLETED) 30 mg, IntraMUSCular, ONCE, 1 dose, On Sun08/11/24 at 1330, Do not administer for more than 5 days. 1328 (Given - Provid er: Manuela Payan RN) Scheduled Medication Order 09/03/2024 09/04/2024 09/05/2024 acetaminophen (TYLENOL) tablet 650 mg (COMPLETED) 650 mg, Oral, ONCE, 1 dose, On Sun09/05/24 at 2145, Maximum dose of acetaminophen is 4000 mg from all sources in 24 hours. 2223 (Given - Provid er: Selene Alvarez RN) ketorolac (TORADOL) injection 30 mg (COMPLETED) 30 mg, IntraMUSCular, ONCE, 1 dose, On Sun09/05/24 at 2145, Do not administer for more than 5 days. 2224 (Given - Provid er: Selene Alvarez RN) orphenadrine (NORFLEX) injection 60 mg (COMPLETED) 60 mg, IntraMUSCular, ONCE, 1 dose, On Sun09/05/24 at 2145 2223 (Given - Provid er: Selene Alvarez RN) Source Comments (unrecognize d section and content) In the event this informatio n is protected by the Federal Confidentiality of Alcohol and Drug Abuse Patient Records regulations: The Federal rules restrict any use of the information to criminally investigate or prosecute any alcohol or drug abuse patient.[facility] HospitalIn the event this information is protected by the Federal Confidentiality of Alcohol and Drug Abuse Patient Records regulations: The Federal rules restrict any use of the information to criminally investigate or prosecute any alcohol or drug abuse patient.[facility] HospitalIn the event this information is protected by the Federal Confidentiality of Alcohol and Drug Abuse Patient Records regulations: The Federal rules restrict any use of the information to criminally investigate or prosecute any alcohol or drug abuse patient.[facility] HospitalIn the event this information is protected by the Federal Confidentiality of Alcohol and Drug Abuse Patient Records regulations: The Federal rules restrict any use of the information to criminally investigate or prosecute any alcohol or drug abuse patient.[facility] HospitalIn the event this information is protected by the Federal Confidentiality of Alcohol and Drug Abuse Patient Records regulations: The Federal rules restrict any use of the information to criminally investigate or prosecute any alcohol or drug abuse patient.[facility] HospitalIn the event this information is protected by the Federal Confidentiality of Alcohol and Drug Abuse Patient Records regulations: The Federal rules restrict any use of the information to criminally investigate or prosecute any alcohol or drug abuse patient.[facility] HospitalIn the event this information is protected by the Federal Confidentiality of Alcohol and Drug Abuse Patient Records regulations: The Federal rules restrict any use of the information to criminally investigate or prosecute any alcohol or drug abuse patient.[facility] HospitalIn the event this information is protected by the Federal Confidentiality of Alcohol and Drug Abuse Patient Records regulations: The Federal rules restrict any use of the information to criminally investigate or prosecute any alcohol or drug abuse patient.[facility] HospitalIn the event this information is protected by the Federal Confidentiality of Alcohol and Drug Abuse Patient Records regulations: The Federal rules restrict any use of the information to criminally investigate or prosecute any alcohol or drug abuse patient.[facility] HospitalIn the event this information is protected by the Federal Confidentiality of Alcohol and Drug Abuse Patient Records regulations: The Federal rules restrict any use of the information to criminally investigate or prosecute any alcohol or drug abuse patient.[facility] HospitalIn the event this information is protected by the Federal Confidentiality of Alcohol and Drug Abuse Patient Records regulations: The Federal rules restrict any use of the information to criminally investigate or prosecute any alcohol or drug abuse patient.[facility] HospitalIn the event this information is protected by the Federal Confidentiality of Alcohol and Drug Abuse Patient Records regulations: The Federal rules restrict any use of the information to criminally investigate or prosecute any alcohol or drug abuse patient.[facility] HospitalIn the event this information is protected by the Federal Confidentiality of Alcohol and Drug Abuse Patient Records regulations: The Federal rules restrict any use of the information to criminally investigate or prosecute any alcohol or drug abuse patient.[facility] HospitalIn the event this information is protected by the Federal Confidentiality of Alcohol and Drug Abuse Patient Records regulations: The Federal rules restrict any use of the information to criminally investigate or prosecute any alcohol or drug abuse patient.[facility] HospitalIn the event this information is protected by the Federal Confidentiality of Alcohol and Drug Abuse Patient Records regulations: The Federal rules restrict any use of the information to criminally investigate or prosecute any alcohol or drug abuse patient.[facility] HospitalIn the event this information is protected by the Federal Confidentiality of Alcohol and Drug Abuse Patient Records regulations: The Federal rules restrict any use of the information to criminally investigate or prosecute any alcohol or drug abuse patient.[facility] HospitalIn the event this information is protected by the Federal Confidentiality of Alcohol and Drug Abuse Patient Records regulations: The Federal rules restrict any use of the information to criminally investigate or prosecute any alcohol or drug abuse patient.[facility] HospitalIn the event this information is protected by the Federal Confidentiality of Alcohol and Drug Abuse Patient Records regulations: The Federal rules restrict any use of the information to criminally investigate or prosecute any alcohol or drug abuse patient.[facility] HospitalIn the event this information is protected by the Federal Confidentiality of Alcohol and Drug Abuse Patient Records regulations: The Federal rules restrict any use of the information to criminally investigate or prosecute any alcohol or drug abuse patient.[facility] HospitalIn the event this information is protected by the Federal Confidentiality of Alcohol and Drug Abuse Patient Records regulations: The Federal rules restrict any use of the information to criminally investigate or prosecute any alcohol or drug abuse patient.[facility] HospitalIn the event this information is protected by the Federal Confidentiality of Alcohol and Drug Abuse Patient Records regulations: The Federal rules restrict any use of the information to criminally investigate or prosecute any alcohol or drug abuse patient.[facility] HospitalIn the event this information is protected by the Federal Confidentiality of Alcohol and Drug Abuse Patient Records regulations: The Federal rules restrict any use of the information to criminally investigate or prosecute any alcohol or drug abuse patient.[facility] HospitalIn the event this information is protected by the Federal Confidentiality of Alcohol and Drug Abuse Patient Records regulations: The Federal rules restrict any use of the information to criminally investigate or prosecute any alcohol or drug abuse patient.[facility] HospitalIn the event this information is protected by the Federal Confidentiality of Alcohol and Drug Abuse Patient Records regulations: The Federal rules restrict any use of the information to criminally investigate or prosecute any alcohol or drug abuse patient.[facility] HospitalIn the event this information is protected by the Federal Confidentiality of Alcohol and Drug Abuse Patient Records regulations: The Federal rules restrict any use of the information to criminally investigate or prosecute any alcohol or drug abuse patient.[facility] HospitalIn the event this information is protected by the Federal Confidentiality of Alcohol and Drug Abuse Patient Records regulations: The Federal rules restrict any use of the information to criminally investigate or prosecute any alcohol or drug abuse patient.[facility] HospitalIn the event this information is protected by the Federal Confidentiality of Alcohol and Drug Abuse Patient Records regulations: The Federal rules restrict any use of the information to criminally investigate or prosecute any alcohol or drug abuse patient.[facility] HospitalIn the event this information is protected by the Federal Confidentiality of Alcohol and Drug Abuse Patient Records regulations: The Federal rules restrict any use of the information to criminally investigate or prosecute any alcohol or drug abuse patient.[facility] HospitalIn the event this information is protected by the Federal Confidentiality of Alcohol and Drug Abuse Patient Records regulations: The Federal rules restrict any use of the information to criminally investigate or prosecute any alcohol or drug abuse patient.[facility] HospitalIn the event this information is protected by the Federal Confidentiality of Alcohol and Drug Abuse Patient Records regulations: The Federal rules restrict any use of the information to criminally investigate or prosecute any alcohol or drug abuse patient.[facility] HospitalIn the event this information is protected by the Federal Confidentiality of Alcohol and Drug Abuse Patient Records regulations: The Federal rules restrict any use of the information to criminally investigate or prosecute any alcohol or drug abuse patient.[facility] HospitalIn the event this information is protected by the Federal Confidentiality of Alcohol and Drug Abuse Patient Records regulations: The Federal rules restrict any use of the information to criminally investigate or prosecute any alcohol or drug abuse patient.[facility] HospitalIn the event this information is protected by the Federal Confidentiality of Alcohol and Drug Abuse Patient Records regulations: The Federal rules restrict any use of the information to criminally investigate or prosecute any alcohol or drug abuse patient.[facility] HospitalIn the event this information is protected by the Federal Confidentiality of Alcohol and Drug Abuse Patient Records regulations: The Federal rules restrict any use of the information to criminally investigate or prosecute any alcohol or drug abuse patient.[facility] Ordered Prescriptions (unrec ognized section and content) Prescription Sig Dispensed Refills Start Date End Da te orphenadrine (NORFLEX) 100 MG extended release tablet Take 1 tablet by mouth 2 times daily for 10 days 20 tablet 08/08/2024 08/18/2024 Prescription Sig Dispensed Refills Start Date End Da te HYDROcodone-acetaminophe n (NORCO) 5-325 MG per tabletIndications:Left-s ided chest wall pain,Rib contusion, left, sequela Take 1 tablet by mouth every 8 hours as needed for Pain (moderate severe) for up to 3 days. Intended supply: 7 days. Take lowest dose possible to manage pain Max Daily Amount: 3 tablets 9 tablet 08/11/2024 08/14/2024 Prescription Sig Dispensed Refills Start Date End Da te ketorolac (TORADOL) 10 MG tablet Take 1 tablet by mouth every 6 hours as needed for Pain 12 tablet 09/05/2024 09/08/2024 FOR RECORDS PERTAINING TO PATIENTS WHO ARE OR HAVE BEEN ENROLLED IN A CHEMICAL DEPENDENCY/SUBSTANCEABUSE PROGRAM, SOME INFORMATION MAY BE OMITTED. This clinical summary was aggregated from multiple sources. Caution should be exercised in using it in the provision of clinical care. This summary normalizes information from multiple sources, and as a consequence, information in this document may materially change the coding, format and clinical context of patient data. In addition, data may be omitted in some cases. CLINICAL DECISIONS SHOULD BE BASED ON THE PRIMARY CLINICAL RECORDS. [employer] [facility]. provides no warranty or guarantee of the accuracy or completeness of information in this document.
--- NOTE | 2024-10-08 10:39 | PM.CN ---
Consult Note: HPI Data of Consult Patient: known to practice within the last 3 years Consult date: 04/28/24 Requesting Physician: Vanessa Chavez NP Primary Care Provider: Meg Lynn Consult Narrative Reason for consult: neck pain, back pain Narrative: [id number] who presents for assessment. worsening neck and bilateral upper extremity pain. imaging reviewed, which is consistent with stenosis at c5-6. has continued in chiropractic therapy >6 weeks, without benefit. uses tramadol. denies adverse med side effects. recent bilateral C5-6 TFESI >50% improvement ongoing. Patient reports SCS providing mild relief at this time, feels that there is no issue with the device it has reset itself. pt underwent spleenectomy and pancreatectomy at [facility], now utilizing an insulin pump for type 1 DM. pt would like to address chronic thoracic pain, reports moderate benefit with injections in the past. cc:: CC: Vanessa Chavez NP Review of Systems ROS Status of ROS 10 or more systems reviewed and unremarkable except as noted in history and below Musculoskeletal Reports: back pain, neck pain and extremity pain Meds Home Medications and Allergies Home Medications ?Medication ?Instructions ?Recorded ?Confirmed ?Type amitriptyline 50 mg tablet 50 mg PO DAILY 04/14/24 05/12/24 History amlodipine 2.5 mg tablet 2.5 mg PO DAILY 04/14/24 05/12/24 History atorvastatin 40 mg tablet 40 mg PO DAILY 04/14/24 05/12/24 History cholecalciferol (vitamin D3) 50 10,000 unit PO QWEEK 04/14/24 05/12/24 History mcg (2,000 unit) capsule (D3-2000) fenofibrate 54 mg tablet 54 mg PO DAILY 04/14/24 05/12/24 History ferrous sulfate 325 mg (65 mg 325 mg PO DAILY 04/14/24 05/12/24 History iron) tablet (Feosol) fexofenadine 180 mg tablet 180 mg PO DAILY 04/14/24 05/12/24 History cnksps-iewbnkvm-avretrx 1 cap PO TID 04/14/24 05/12/24 History 36,000-114,000-180,000 unit capsule,delay rel (Creon) mepolizumab 100 mg/mL subcutaneous mg subcut .MONTHLY 04/14/24 History syringe (Nucala) metformin 500 mg tablet 500 mg PO DAILY 04/14/24 05/12/24 History montelukast 10 mg tablet 10 mg PO DAILY 04/14/24 05/12/24 History omeprazole 40 mg capsule,delayed 40 mg PO DAILY 04/14/24 05/12/24 History release prazosin 1 mg capsule 1 mg PO DAILY 04/14/24 05/12/24 History vitamin B complex (Vitamins B 1 cap PO DAILY 04/14/24 05/12/24 History Complex capsule) ziprasidone HCl 40 mg capsule 40 mg PO .QD 04/14/24 05/12/24 History tramadol 50 mg tablet See Rx Instructions .Route 06/24/24 Rx .COMPLEX PRN pain #120 tabs tramadol 100 mg capsule 100 mg PO DAILY #30 caps 08/27/24 Rx 24h,extended release(25-75) tramadol 50 mg tablet 100 mg (2 x 50 mg) PO BID PRN pain 08/27/24 Rx #120 tabs tramadol 100 mg capsule 100 mg PO DAILY PRN pain #30 caps 10/01/24 Rx 24h,extended release(25-75) tramadol 50 mg tablet See Rx Instructions .Route 10/01/24 Rx .COMPLEX PRN pain #120 tabs Allergies Allergy/AdvReac Type Severity Reaction Status Date / Time acetaminophen (From Tylenol) Allergy Mild Hives Verified 05/12/24 10:46 codeine Allergy Mild Hives Verified 05/12/24 10:46 ibuprofen Allergy Mild Hives Verified 05/12/24 10:46 naproxen (From Aleve) Allergy Mild Vomiting Verified 05/12/24 10:46 ondansetron (From Zofran) Allergy Mild Hives Verified 05/12/24 10:46 Exam Narrative Exam Narrative: Psych-alert and oriented x 3.? Attentive and appropriate, constitutionally normal, displays normal mood and affect per situation.? There are no obvious deficits in memory, reasoning, or intellect.? Skin-no obvious rashes, bruising, or erythema noted to the patient's area of pain.? Extremities-upper extremities are warm with minimal edema and palpable pulses. Cervical- tenderness to palpation noted in the cervical spine and paraspinal musculature.? Pain is elicited with flexion, extension, and lateral rotation of the cervical spine.? Range of motion is diminished due to pain. Facet loading maneuvers are positive.? thoracic spine- tenderness to palpation, pain is elicited with flexion extension and rotation, positive facet loading. increased pain T6-10 Strength-unremarkable and within normal limits with the exception to the bilateral biceps. Sensory-no notable sensory deficits in the bilateral upper extremities to touch or pinprick Coordination remains intact.? Gait remains non-antalgic. Results Additional Findings Additional findings: If on a controlled substance or opioids, I have checked an [place] report on this patient and there are no aberrancies noted in the prescribing history.??If on a controlled substance or opioid a drug screen was completed and reviewed within the last year, and if there has not been a drug screen completed we ordered one today to monitor higher risk, state monitored pain medication use. As part of providing excellent, safe, comprehensive care, the following was completed at our patient's visit: 1. A medication reconciliation and review to ensure accurate knowledge of current/active medications, including asking our patients to inform us about any [id number] medications or herbal remedies/nutritional supplements/alternative remedies. 2. A review to specifically ensure our patients have had annual screening for screening for depression, screening for tobacco use, and screening for unhealthy alcohol use. For concerning screenings had a discussion with the patient, provided patient education, and recommended follow-up with primary care provider when appropriate. If patient noted with a risk of falling, they received education on strength, gait, and balance training to prevent future risk of falling. Assessment and Plan Assessment and Plan (1) Thoracic spondylosis: (2) Cervical stenosis of spinal canal: (3) Chronic use of opiate drug for therapeutic purpose: (4) Lumbar spondylosis: (5) Failed back syndrome: (6) Insomnia: (7) PTSD (post-traumatic stress disorder): (8) Chronic prescription benzodiazepine use: Plan bilateral t6,7 t7,8 MBB x2 working towards RFA under fluoroscopy, risks vs benefits reviewed risks vs benefits of current medication regimen discussed, patient has been on his current regimen for many years without side effects. patient has narcan available at home. Patient is on clonazepam 1/2-1mg HS due to chronic severe insomnia refractory to multiple medications and it is his only relief to assist in sleep. Patient has failed numerous non opioid medications and has had back surgery and spinal cord stimulator placed yet continues to have moderate to severe pain requiring opioids. continue current medication regimen continue f/u with [employer] for spinal cord stimulator setting adjustments PRN continue f/u with endocrinology and surgical team as planned f/u after each injection
== END 2024-10-08 09:57 | disposition home or self-care (01) ==
LOC: PM 09:56
PROVIDERS: PCP Nurse Practitioner Family; Visit Provider Nurse Practitioner
DX: M47.814 Spondylosis without myelopathy or radiculopathy, thoracic region (principal); M48.02 Spinal stenosis, cervical region; Z79.891 Long term (current) use of opiate analgesic; M47.816 Spondylosis without myelopathy or radiculopathy, lumbar region; M96.1 Postlaminectomy syndrome, not elsewhere classified; G47.00 Insomnia, unspecified; F43.10 Post-traumatic stress disorder, unspecified
CPT/HCPCS: G0463

== ENCOUNTER 2024-10-20 08:42 | Day surgery (SDC) | payer MEDICARE, MEDICAID, SELFPAY ==
[2024-10-20 09:56] VITALS: BP 133/90; PULSE 103; TEMP 37.2; O2SAT 98
[2024-10-20 10:00] LABS: Glucometer 148 mg/dL (74-106)
[2024-10-20 10:28] VITALS: BP 116/73; PULSE 109; O2SAT 95
[2024-10-20 10:29] VITALS: BP 114/74; PULSE 107; O2SAT 94
[2024-10-20] MEDS: BUPIVACAINE HCL 0.25% PF 25 MG/10 ML VIAL 6 ML INJ (10:34)
--- NOTE | 2024-10-20 10:34 | W.PM.PROCNOT ---
Date of procedure: 10/20/24 Pre-op diagnosis: Pain due to thoracic spondylosis without myelopathy Post-op diagnosis: same as pre-op Procedure: Procedure: Bilateral T9-10, 10-11 medial branch block Medications: Bupivacaine 0.25% 6cc The patient was seen and examined in the preoperative holding area.? An informed consent was obtained and placed on the chart.? The patient was brought to the medical procedure unit and placed in the prone position.? A timeout was completed verifying correct patient, procedure site, positioning, plan, and special equipment.? Using aseptic technique, the needle was placed at left T9. Under direct fluoroscopic visualization a Quincke-tipped spinal needle was advanced to the junction of the superior articulating process with the transverse process at the designated medial branch segment.? Preceded by negative aspiration, the above-mentioned injectate was placed in 1 mL aliquots.? The procedure was repeated at left T10, 11.? The needle was removed and insertion site was covered. The same procedure, at the same levels, was completed on the right side. The patient was taken to the postprocedural recovery area and monitored for an appropriate length of time before found suitable for discharge in the company of a responsible adult. Anesthesia: Local Surgeon: Danica Conklin Pathology: none sent Condition: stable Disposition: no change
== END 2024-10-20 10:39 | disposition home or self-care (01) ==
LOC: SURGOUT 08:44
PROVIDERS: PCP Nurse Practitioner Family; Visit Provider Anesthesiology
DX: M47.814 Spondylosis without myelopathy or radiculopathy, thoracic region (principal); E11.9 Type 2 diabetes mellitus without complications
CPT/HCPCS: 36415; 64490; 64491; 82948; J0665

== ENCOUNTER 2024-10-23 12:57 | Outpatient (OUT) | payer MEDICARE, MEDICAID, SELFPAY ==
--- NOTE | 2024-10-23 13:28 | PM.CN ---
Consult Note: HPI Data of Consult Patient: known to practice within the last 3 years Consult date: 04/28/24 Requesting Physician: Vanessa Chavez NP Primary Care Provider: Meg Lynn Consult Narrative Reason for consult: neck pain, back pain Narrative: 53yom who presents for assessment. worsening neck and bilateral upper extremity pain. imaging reviewed, which is consistent with stenosis at c5-6. has continued in chiropractic therapy >6 weeks, without benefit. uses tramadol. denies adverse med side effects. recent bilateral C5-6 TFESI >50% improvement ongoing. Patient reports SCS providing mild relief at this time, feels that there is no issue with the device it has reset itself. pt underwent splenectomy and pancreatectomy at [facility], now utilizing an insulin pump for type 1 DM. pt would like to address chronic thoracic pain, reports moderate benefit with injections in the past. recently underwent bilateral T6,7 T7,8 MBB #1 with significant short term relief, noticed 80% improvement in pain as well as functional ability immediately following and 4 hours after the procedure. cc:: CC: Vanessa Chavez NP Review of Systems ROS Status of ROS 10 or more systems reviewed and unremarkable except as noted in history and below Musculoskeletal Reports: back pain, neck pain and extremity pain PFSH PFSH Medical History (Updated 10/14/24 @ 12:29 by Ibeth Moody, [facility]) Pancreatic cancer ?C25.9 - Malignant neoplasm of pancreas, unspecified (ICD-10) Diabetes ?E11.9 - Type 2 diabetes mellitus without complications (ICD-10) High cholesterol ?E78.00 - Pure hypercholesterolemia, unspecified (ICD-10) Surgical History (Updated 10/14/24 @ 12:29 by Ibeth Moody RN) History of back surgery ?Z98.890 - Other specified postprocedural states (ICD-10) Hx of cholecystectomy ?Z90.49 - Acquired absence of other specified parts of digestive tract (ICD-10) Status post insertion of spinal cord stimulator ?Z96.89 - Presence of other specified functional implants (ICD-10) History of kyphoplasty ?Z98.890 - Other specified postprocedural states (ICD-10) History of splenectomy ?Z90.81 - Acquired absence of spleen (ICD-10) 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 (ICD-10) Meds Home Medications and Allergies Home Medications ?Medication ?Instructions ?Recorded ?Confirmed ?Type amitriptyline 50 mg tablet 50 mg PO DAILY 04/14/24 10/20/24 History amlodipine 2.5 mg tablet 2.5 mg PO DAILY 04/14/24 10/20/24 History atorvastatin 40 mg tablet 40 mg PO DAILY 04/14/24 10/20/24 History cholecalciferol (vitamin D3) 50 10,000 unit PO QWEEK 04/14/24 10/20/24 History mcg (2,000 unit) capsule (D3-2000) fenofibrate 54 mg tablet 54 mg PO DAILY 04/14/24 10/20/24 History ferrous sulfate 325 mg (65 mg 325 mg PO DAILY 04/14/24 10/20/24 History iron) tablet (Feosol) fexofenadine 180 mg tablet 180 mg PO DAILY 04/14/24 10/20/24 History zlxspf-dkwxldfu-hwdhreg 1 cap PO TID 04/14/24 10/20/24 History 36,000-114,000-180,000 unit capsule,delay rel (Creon) mepolizumab 100 mg/mL subcutaneous mg subcut .MONTHLY 04/14/24 History syringe (Nucala) montelukast 10 mg tablet 10 mg PO DAILY 04/14/24 10/20/24 History omeprazole 40 mg capsule,delayed 40 mg PO DAILY 04/14/24 10/20/24 History release prazosin 1 mg capsule 1 mg PO DAILY 04/14/24 10/20/24 History vitamin B complex (Vitamins B 1 cap PO DAILY 04/14/24 10/20/24 History Complex capsule) ziprasidone HCl 40 mg capsule 40 mg PO .QD 04/14/24 10/20/24 History tramadol 50 mg tablet See Rx Instructions .Route 06/24/24 Rx .COMPLEX PRN pain #120 tabs tramadol 100 mg capsule 100 mg PO DAILY #30 caps 08/27/24 10/20/24 Rx 24h,extended release(25-75) tramadol 50 mg tablet 100 mg (2 x 50 mg) PO BID PRN pain 08/27/24 Rx #120 tabs tramadol 100 mg capsule 100 mg PO DAILY PRN pain #30 caps 10/01/24 Rx 24h,extended release(25-75) tramadol 50 mg tablet See Rx Instructions .Route 10/01/24 Rx .COMPLEX PRN pain #120 tabs Allergies Allergy/AdvReac Type Severity Reaction Status Date / Time codeine Allergy Mild Hives Verified 10/20/24 09:59 ibuprofen Allergy Mild Hives Verified 10/20/24 09:59 naproxen (From Aleve) Allergy Mild Vomiting Verified 10/20/24 09:59 ondansetron (From Zofran) Allergy Mild Hives Verified 10/20/24 09:59 Exam Narrative Exam Narrative: Psych-alert and oriented x 3.? Attentive and appropriate, constitutionally normal, displays normal mood and affect per situation.? There are no obvious deficits in memory, reasoning, or intellect.? Skin-no obvious rashes, bruising, or erythema noted to the patient's area of pain.? Extremities-upper extremities are warm with minimal edema and palpable pulses. Cervical- tenderness to palpation noted in the cervical spine and paraspinal musculature.? Pain is elicited with flexion, extension, and lateral rotation of the cervical spine.? Range of motion is diminished due to pain. Facet loading maneuvers are positive.? thoracic spine- tenderness to palpation, pain is elicited with flexion extension and rotation, positive facet loading. increased pain T6-10 Strength-unremarkable and within normal limits with the exception to the bilateral biceps. Sensory-no notable sensory deficits in the bilateral upper extremities to touch or pinprick Coordination remains intact.? Gait remains non-antalgic. Results Additional Findings Additional findings: If on a controlled substance or opioids, I have checked an [place] report on this patient and there are no aberrancies noted in the prescribing history.??If on a controlled substance or opioid a drug screen was completed and reviewed within the last year, and if there has not been a drug screen completed we ordered one today to monitor higher risk, state monitored pain medication use. As part of providing excellent, safe, comprehensive care, the following was completed at our patient's visit: 1. A medication reconciliation and review to ensure accurate knowledge of current/active medications, including asking our patients to inform us about any ovil-ymb-gxfzuad medications or herbal remedies/nutritional supplements/alternative remedies. 2. A review to specifically ensure our patients have had annual screening for screening for depression, screening for tobacco use, and screening for unhealthy alcohol use. For concerning screenings had a discussion with the patient, provided patient education, and recommended follow-up with primary care provider when appropriate. If patient noted with a risk of falling, they received education on strength, gait, and balance training to prevent future risk of falling. Assessment and Plan Assessment and Plan (1) Thoracic spondylosis: (2) Cervical stenosis of spinal canal: (3) Chronic use of opiate drug for therapeutic purpose: (4) Lumbar spondylosis: (5) Failed back syndrome: (6) Insomnia: (7) PTSD (post-traumatic stress disorder): (8) Chronic prescription benzodiazepine use: Plan bilateral t6,7 t7,8 MBB x2 working towards RFA under fluoroscopy, risks vs benefits reviewed risks vs benefits of current medication regimen discussed, patient has been on his current regimen for many years without side effects. patient has narcan available at home. Patient is on clonazepam 1/2-1mg HS due to chronic severe insomnia refractory to multiple medications and it is his only relief to assist in sleep. Patient has failed numerous non opioid medications and has had back surgery and spinal cord stimulator placed yet continues to have moderate to severe pain requiring opioids. continue current medication regimen continue f/u with [facility] for spinal cord stimulator setting adjustments PRN continue f/u with endocrinology and surgical team as planned f/u after each injection
== END 2024-10-23 12:58 ==
LOC: PM 13:01
PROVIDERS: PCP Nurse Practitioner Family; Visit Provider Nurse Practitioner
DX: M47.814 Spondylosis without myelopathy or radiculopathy, thoracic region (principal); M48.02 Spinal stenosis, cervical region; M47.816 Spondylosis without myelopathy or radiculopathy, lumbar region; M96.1 Postlaminectomy syndrome, not elsewhere classified; G47.00 Insomnia, unspecified; F43.10 Post-traumatic stress disorder, unspecified; F13.20 Sedative, hypnotic or anxiolytic dependence, uncomplicated
CPT/HCPCS: G0463

== ENCOUNTER 2024-11-03 06:48 | Day surgery (SDC) | payer MEDICARE, MEDICAID, SELFPAY ==
--- OUTSIDE RECORDS SUMMARY | 2024-11-03 06:53 | XMS_ITS | CCD ---
Author Organization [facility] Care Team Providers Care Catering Administrative Assistant Name Role Phone DEMARCUS REID Primary Care [...] Unavailable JEANETTE, DEMARCUS Primary Care Unavailable Gian [facility] - Eliana MUSTAFA Primary Care Provid er Eliana Morales Primary Care Provider CHRISTIHAL, JOANA N Attending Unavailable GIAN, ELIANA Palomo [...] Unavailable BASISTA, LAURI Harper Consulting Unavailable Gian [facility], [facility] Primary Care Unava ilable Mickie REARDON, Rob Villagomez Attending Unavailable Gian [facility], [facility] Primary Care Unava ilable Mickie REARDON, Rob Villagomez Attending Unavailable Gian [facility], [facility] Primary Care Unava ilable Samson REARDON, Wesly Crawford Attending Unavailable Gian [facility], [facility] Primary Care Unava ilable Jm REARDON, Jacqueline Ruiz Attending Mariajosevai getachew Schultz MD, Benoit Nagy Consulting Ethani getachew Schilling MD, Adelina Consulting Unavailable [facility], [facility] Primary Care Unava ilable Samson REARDON, Wesly Crawford Attending Unavailable Gian [facility], [facility] Primary Care Unava ilable Rubin REARDON, Danica Arnold Attending Unavailable [facility] Primary Care Unava ilable Rubin REARDON, Danica Arnold Attending Unavailable Rubin REARDON, Danica Arnold Attending Unavailable [facility] Primary Care Unava ilable GIAN, ELIANA Palomo Referring Unavailable GIAN, ELIANA Palomo Primary Care Unavailable Cristal Paul Attending Unavailable LUIS F APONTE Admitting Unavailable LUIS F APONTE Attending Unavailable WESLY DAVIES Referring Unavailable Gian [facility], [facility] Primary Care [facility] er Samson REARDON, Wesly Crawford Unavailable Wesly Davies MD Unavailable Gian [facility], Eliana Primary Care Provider GIAN, ELIANA Palomo Primary Care Unavailable HUTCHINSJHONATAN RAMOSVERYANDY Henao Attending Unavailable GIAN, ELIANA Palomo Primary [...] Unavailable OCTAVIO CHATTERJEE Referring Unavailable GIAN, ELIANA Palomo Primary Care Unavailable GIAN, ELIANA Palomo Primary Care Unavailable LAUREN GUTIERREZ Referring Unavailable GIAN, ELIANA Palomo Primary Care Unavailable MIGHT, SARY Romero Referring Unavailable GIAN, ELIANA Palomo Primary Care Unavailable MIGHTSARY W Referring Unavailable GIAN, ELIANA Palomo Primary Care Unavailable GIAN, ELIANA L Referring Unavailable GIAN, ELIANA Palomo Primary Care Unavailable GIAN, ELIANA Palomo Referring Unavailable GIAN, ELIANA Palomo Primary Care Unavailable GIAN, ELIANA Palomo Referring Unavailable IACOBIRVIN Admitting Unavailable IRVIN OBRIEN Attending Unavailable GIAN, ELIANA Palomo Primary Care Unavailable SOFIA SMITH Attending Unavailable GIAN, ELIANA Palomo Primary Care Unavailable GIAN, ELIANA Palomo Primary Care Unavailable GIAN, ELIANA Palomo Primary Care Unavailable GIEDRAITIS, ANDRIUS Referring Unavailable GIAN, ELIANA Palomo Primary Care Unavailable SOFIA SMITH Attending Unavailable GIAN, ELIANA Palomo Primary Care Unavailable TAMIKO SARAVIA Admitting Unavailable TAMIKO SARAVIA Attending Unavailable KAJAL STEWART Attending Unavailable STEF, Jesus YI Referring Unavailable GIAN, ELIANA Palomo Primary Care Unavailable DAMION BRAVO Attending Unavailable GIAN, ELIANA Palomo Primary Care Unavailable JACOBSON, R KASSIDY Referring Unavailable JACOBSON, Jesus YI Attending Unavailable GIAN, ELIANA Palomo Primary Care Unavailable JACOBSONJeuss Attending Unavailable GIAN, ELIANA Palomo Primary Care Unavailable MODESTO DUNLAP Referring Unavailable EMILEE SUAREZ Attending Unavaila ble JACOBSON, Jesus YI Referring Unavailable GIAN, ELIANA Palomo Primary Care Unavailable JACOBSON, R KASSIDY Attending Unavailable JACOBSON, R KASSIDY Admitting Unavailable JACOBSON, R KASSIDY Referring Unavailable GIAN, ELIANA Palomo Primary Care Unavailable GIAN, ELIANA Palomo Primary Care Unavailable DAMION BRAVO Attending Unavailable JACOBSON, R KASSIDY Referring Unavailable GIAN, ELIANA Palomo Primary Care Unavailable JACOBSON, R KASSIDY Referring Unavailable GIAN, ELIANA L Primary Care Unavailable JACOBSON, R KASSIDY Referring Unavailable ELIANA SPRINGER Primary Care Unavailable Jesus JACOBSON Referring Unavailable ELIANA SPRINGER Primary Care Unavailable ELIANA SPRINGER Primary Care Unavailable DAMION BRAVO Attending Unavailable Allergies Allergy Classification Reported Allergen(s) Allergy Type Date of Onset Reaction(s) Facility Acetaminophen / Codeine (2 sources) Acetaminophen / Codeine Drug Allergy 4 Hives [employer] Cat Hair Extract (2 sources) Cat Hair Extract Drug Allergy 0 [employer] Work Phone: NSAIDs (2 sources) Ibuprofen Drug Allergy 4 Diarrhea [employer] Ondansetron (2 sources) Ondansetron Drug Allergy 9 Anaphylaxis [employer] Opioid Agonists (2 sources) Codeine Drug Allergy 8 Hives, Nausea And Vomiting [employer] Work Phone: (12 sources) Cat Hair Extract Drug Allergy 0 [employer] Work Phone: (20 sources) Codeine; Translations: [CODEINE] Drug Allergy 8 Hives, Nausea And Vomiting [employer] Work Phone: (20 sources) Ondansetron; Translations: [ONDANSETRON HCL] Drug Allergy 9 Nausea Only, Anaphylaxis [employer] (14 sources) Acetaminophen / Codeine; Translations: [ACETAMINOPHEN-CO DEINE] Drug Allergy 4 Hives, Other (See Comments) [facility] [employer] [facility] (14 sources) Ibuprofen; Translations: [IBUPROFEN] Drug Allergy 4 Other (See Comments), Diarrhea [employer] [facility] (1 source) Cat; Translations: [Cats] Propensity to adverse reactions (disorder) [facility] Repository (1 source) Ondansetron; Translations: [Zofran] Drug Allergy [facility] Repository (20 sources) Ondansetron; Translations: [ONDANSETRON] Drug Allergy 1 Hives [facility] Repository Medications Current Medications Medication Drug Class(es) [...] PRN, # 1 EA, 0 Refill(s), Pharmacy: [facility] [place] [address] 03/25/2024 Active Start: 02-06-2024 take 2 puff(s) by in halation every six hours as needed albuterol sulfate (PROAIR RESPICLICK) 108 (90 Base) MCG/ACT aerosol powder inhalation Indications: Asthma, unspecified asthma severity, unspecified whether complicated, unspecified whether persistent 2 puffs, Inhale, q6hr, PRN, # 1 EA, 0 Refill(s), Pharmacy: [facility] [place] [address] ST. 1 each 0 02/06/2024 Active Start: [...] # 1 EA, 0 Refill(s), Pharm[place] [id number] Inhaler 0 12/13/2018 Active amitriptyline hydrochloride 50 [...] 2 times daily 0 01/25/2024 Active amylase 764943 unt / lipase 09342 unt / protease 640764 unt delayed release oral capsule (20 sources) Start: 08-04-2024 adimer-njynctrb-hs ylase (CREON 36) 36,000-114,000- 180,000 unit delayed release capsule Take 3 caps by mouth 3 times daily with meals and 1 cap with each snack (2) 330 capsule 11 08/04/2024 Active Start: 02-08-2024 take 1 capsule by [facility] once daily cspqgr-qupwfcbd-ziplhba (CREON) 01884-468529 units CPEP delayed release capsule Indications: Chronic pancreatitis, unspecified pancreatitis type (HCC) , Medication refill Creon 37886 units oral delayed release capsule: TAKE 2 CAPSULES WITH MEALS (3 TIMES A DAY) AND 1 CAPSULE WITH SNACKS (1 DAILY). 200 capsule 1 02/08/2024 Active Start: 01-03-2024 take 1 capsule by [facility] once daily dobpzy-hvbcepho-dqbmmkp (CREON) 19510-387195 units CPEP delayed release capsule Indications: Chronic pancreatitis, unspecified pancreatitis type (HCC) , Medication refill [facility]on 87750 units oral delayed release capsule: TAKE 2 CAPSULES WITH MEALS (3 TIMES A DAY) AND 1 CAPSULE WITH SNACKS (1 DAILY). 180 capsule 1 01/03/2024 Active Start: 11-12-2023 take 1 capsule by [facility] once daily mzmsnv-iumwpkxy-cyoiehf (CREON) 78112-820627 units CPEP delayed release capsule Indications: Chronic pancreatitis, unspecified pancreatitis type (HCC) , Medication refill Creon 03263 units oral delayed release capsule: TAKE 2 CAPSULES WITH MEALS (3 TIMES A DAY) AND 1 CAPSULE WITH SNACKS (1 DAILY). 180 capsule 0 11/12/2023 Active Start: 05-24-2023 take 1 capsule by [facility] three times daily at mealtime avfbyj-kybpjcve-iofrnfo (CREON) 03753-866358 units CPEP delayed release capsule Take 1 [...] daily azelastine 0.1% nasal spray Use 1 [place] in each nostril two times a day. [...] 0 Active bisacodyl 10 mg rectal suppository (17 sources) Stimulant Laxative Start: bisacodyl (DULCOLAX) 10 [...] 06-18-2024 Cholecalcifero l (VITAMIN D3) 1.25 MG (37985 UT) CAPS Indications: Other fatigue Take 1 capsule by mouth once a week Patient takes 1 time weekly on Fridays 12 capsule 3 06/18/2024 Active Start: 11-13-2023 cholecalcifero l, Vitamin D3, (VITAMIN D3) 1,250 mcg (50,000 unit) cap capsule Take 50,000 Units by mouth. 11/13/2023 Active Start: 11-13-2023 Cholecalcifero l (VITAMIN D3) 1.25 MG (45072 UT) CAPS Take 1 capsule by mouth once a week Patient takes 1 time weekly on Fridays 12 capsule 3 11/13/2023 Active Cholecalciferol (VITAMIN D3) 1.25 MG (84719 UT) CAPS Take by mouth Patient takes [...] every week vitamin D (ERGOCALCIFEROL) 1.25 MG (63446 UT) CAPS capsule Take 1 capsule by [...] Daily, # 30 EA, 11 Refill(s), Pharmacy: [place] [address] 01/17/2018 Active fluticasone-jose nterol (BREO ELLIPTA) 200-25 mcg/dose inhaler Inhale 1 Inhalation as instructed once daily. Active glucagon 3 mg nasal powder (20 sources) Antihypoglycemic Agent Start: 08-22-2024 glucagon (BAQSIMI) 3 mg/actuation nasal spray Indications: Post-pancreatectomy diabetes (HCC) Use 1 [place] in the nose as needed. May repeat [...] injectable solution (20 sources) Insulin Analog Start: 10-31-2024 insulin lispro (HUMALOG U-100 INSULIN) 100 unit/mL injection Indications: Post-pancreatectomy diabetes (HCC) Use up to 70 units in insulin pump daily 70 mL 1 10/31/2024 Active Start: 09-28-2024 End: 10-31-2024 insulin lispro (HUMALOG U-10 0 INSULIN) 100 unit/mL injection Indications: Post-pancreatectomy diabetes (HCC) Use up to 50 units in insulin pump daily 50 mL 1 09/28/2024 10/31/2024 Discontinued Start: 09-04-2024 insulin lispro (HUMALOG KWIKPEN INSULIN) [...] Active magnesium hydroxide 80 mg/ml oral suspension (17 sources) Sta rt: take 30 mL by [...] pantoprazole 40 mg delayed release oral tablet (17 sources) Proton Pump Inhibitor Start: 09-04-2024 End: 12-03-2024 take 1 tablet by mouth once daily pantoprazole DR (PROTONIX) 40 mg tablet Take 1 tablet by mouth once daily. 30 tablet 2 09/04/2024 12/03/2024 Active polyethylene glycol 3350 14903 mg powder for oral solution (17 sources) Osmotic Laxative Start: 09-04-2024 polyethylene glycol [...] 1 tablet by mouth in the mo rning zinc gluconate 50 mg tablet Take 1 tablet (50 mg total) by mouth in the morning. 0 Active ziprasidone 40 mg oral capsule (20 sources) Atypical Antipsychotic Start: 2018 take 1 capsule by mouth once daily in the evening ziprasidone (GEODON) 40 mg capsule Take 1 capsule by mouth every evening. 2018 Active take 1 capsule by mo [facility] in the morning, then take 1 capsule [...] Sig (Original) acetaminophen 325 mg oral tablet (18 sources) Start: 09-05-2024 End: 09-05-2024 take 4000 mg by mouth every twenty-four hours 650 mg, Oral, ONCE, 1 dose, On Sun09/05/24 at 2145, Maximum dose of acetaminophen is 4000 mg from all sources in 24 hours. Start: 09-04-2024 take 2 tablets by mo uth every six hours as needed acetaminophen (TYLENOL) [...] complications] Onset: 2 Resolved: 4 01-11-2024 Chronic Diabetes mellitus without complication (20 sources) Hyperglycemia; Translations: [Hyperglycemia, unspecified] Onset: 9 Resolved: 3 05-18-2023 Episodic Disorders of lipid metabolism (15 sources) Hypertriglyceridemia; Translations: [Pure hyperglyceridemia] 05-18-2023 Chronic Esophageal disorders (20 sources) Gastroesophageal reflux disease; Translations: [Gastro-esophageal reflux disease without esophagitis] Onset: 2 05-18-2023 Chronic Essential hypertension (18 sources) Essential hypertension; Translations: [Essential (primary) hypertension] [...] Other aftercare (4 sources) Admission statuses; Translations: [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] Onset: 4 10-24-2023 Episodic Other aftercare (17 sources) Insulin dose changed; Translations: [[facility] (current) use of insulin] Onset: 4 08-30-2024 [...] not elsewhere classified; Translations: [Fatty liver] Onset: Chronic Other nervous system disorders (1 source) Chronic pain syndrome; Translations: [Chronic pain syndrome] 11-30-2023 Chronic Other nervous system disorders (1 source) Chronic pain syndrome; Translations: [Chronic pain syndrome] Onset: 4 Chronic Other nervous system disorders (18 sources) Acute postoperative pain; Translations: [Other acute postprocedural pain] Onset: 4 09-05-2024 Episodic Other nervous system disorders (1 source) Other acute postprocedural pain; Translations: [Acute postoperative pain] Onset: 4 Episodic Other nutritional; endocrine; and metabolic disorders (17 sources) Obese class I; Translations: [Obesity, Class I, BMI 30-34.9] Onset: 4 08-30-2024 Chronic Other screening for suspected conditions (not mental disorders or infectious disease) (20 sources) Other specified abnormal findings of blood chemistry; Translations: [Other abnormal blood chemistry] Onset: 8 Resolved: 3 05-18-2023 Episodic Pancreatic disorders (not diabetes) (20 sources) Chronic pancreatitis; Translations: [Other chronic pancreatitis] Onset: 4 08-05-2024 Chronic Residual codes; unclassified (17 sources) History of pancreatectomy; Translations: [Acquired total [...] (1 source) 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); Translations: [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)] Onset: 4 Viral infection (3 sources) COVID-19; Translations: [COVID-19] Onset: 4 Past or Other Problems Problem Classification Problem Date Documented Da te Episodic/Chronic Acute posthemorrhagic anemia (17 sources) Acute posthemorrhagic anemia; Translations: [Acute posthemorrhagic anemia] Onset: 08-28-2024 Resolved: 09-04-2024 09-04-2024 Episodic Administrative/social admission (1 source) Encounter for issue of repeat prescription; Translations: [Encounter for issue of repeat prescription] Onset: 02-07-2024 Episodic Chronic obstructive pulmonary disease and bronchiectasis (10 sources) Bronchitis; Translations: [Bronchitis, not specified as acute or chronic] Onset: 02-07-2024 02-07-2024 Episodic Complications of surgical procedures or medical care (17 sources) Pulmonary insufficiency following surgery; Translations: [Other postprocedural complications and disorders of respiratory system, not elsewhere classified] Onset: 08-30-2024 Resolved: 09-04-2024 09-04-2024 Episodic Diverticulosis and diverticulitis (14 sources) Diverticular [...] 05-18-2023 05-18-2023 Chronic Other aftercare (1 source) [employer]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; Translations: [[employer]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] Onset: 12-25-2023 [...] seasonal allergic rhinitis] Resolved: 05-18-2023 05-18-2023 Chronic Pancreatic disorders (not diabetes) (20 sources) Acute on chronic pancreatitis; Translations: [Acute pancreatitis without necrosis or infection, unspecified] Onset: 05-18-2023 05-18-2023 Episodic Residual codes; unclassified (14 sources) Presence of [...] Test Name Value Interpretation Reference Range Facility [facility] 10-10-2024 CNPN Normal [facility] CNNURSEon 10-07-2024 CNNURSE Normal [facility] CNPNon 10-02-2024 CNPN Normal [facility] CNOVon 09-30-2024 CNOV Normal [facility] CNPNon 09-26-2024 CNPN Normal [facility] CNPNon 09-24-2024 CNPN Normal [facility] CNPNon 09-15-2024 CNPN Normal [facility] CNPNon 09-09-2024 CNPN Normal [facility] CNPNon 09-05-2024 CNPN Normal [facility] CONSULT PROGon 09-04-2024 CONSULT PROG Normal [facility] Basic metabolic 2000 panelon 09-03-2024 Anion gap [Moles/Vol] 11 mmol/L Normal 8- [facility] Comment on above: Order Comment: Speci men Type: BLOOD SPECIMENOrdering Facility: [facility] Address: [address] [place] [address] Performed By: #### 2 777-1, 38145-8, ####[facility] LABCLIA [id number] [address] [address] [place] Calcium [Mass/Vol] 8.8 mg/dL Normal 8.5-10.2 [facility] Comment on above: Order Comment: Speci men Type: BLOOD SPECIMENOrdering Facility: [facility] Address: [address] [place], [place] [id number] Performed By: #### 2 777-1, 22747-6, ####[facility] LABCLIA [id number] [place] [id number] [place] Chloride [Moles/Vol] 99 mmol/L Normal 98-[address] [facility] Comment on above: Order Comment: Speci men Type: BLOOD SPECIMENOrdering Facility: [facility] Address: [address] [place], [place] [address] Performed By: #### 2 777-1, , ####[facility]CLIA [id number] [place] [id number] [place] CO2 [Moles/Vol] 25 mmol/L Normal 22-30 [facility] Comment on above: Order Comment: Speci men Type: BLOOD SPECIMENOrdering Facility: [facility] Address: [address] [place] [address] Performed By: #### 2 777-1, 82949-3, ####[facility] [id number] [address] [address] [place] Creatinine [Mass/Vol] 0.82 mg/dL Normal 0.73-1.22 [facility] Comment on above: Order Comment: Speci men Type: BLOOD SPECIMENOrdering Facility: [facility] Address: [address] [place] [address] Performed By: #### 2 777-1, 86550-9, ####[facility] LABIA [id number] [place] [address] [place] Creatinine and Glomerular filtration rate.predicted panel (S/P/Bld) 104 mL/min/1.73m??? Normal >=60 [facility] Comment on above: Order Comment: Theo narvaez Type: BLOOD SPECIMENOrdering Facility: [facility] Address: [address] [place] [address] Result Comment: Marisa mated Glomerular Filtration Rate [...] actual GFR. Performed By: #### 2 777-1, 92930-7, ####[facility] LABIA [id number] [place] [address] [place] Glucose [Mass/Vol] 227 mg/dL High 74-99 [facility] Comment on above: Order Comment: Theo narvaez Type: BLOOD SPECIMENOrdering Facility: [facility] Address: [address] [place] [address] Result Comment: The [place] Diabetes Association (ADA) provides guidance for cutoff [...] Standards of Medical Care in Diabetes 2016, [place] [employer]. Diabetes Care. 2016.39(Suppl 1). Performed By: #### 2 777-1, 82917-3, ####[facility]CL[facility] [id number] [address] [address] [place] Potassium [Moles/Vol] 4.3 mmol/L Normal 3.7-5.1 [facility] Comment on above: Order Comment: Speci men Type: BLOOD SPECIMENOrdering Facility: [facility] Address: [address] [place] [address] Performed By: #### 2 777-1, 69377-8, ####[facility] LABIA [id number] [address] [address] [place] Sodium [Moles/Vol] 135 mmol/L Low 136-144 [facility] Comment on above: Order Comment: Speci men Type: BLOOD SPECIMENOrdering Facility: [facility] Address: [address] [place] [address] Performed By: #### 2 777-1, 22850-7, ####[facility] LABIA [id number] [place] [id number] [place] Urea nitrogen [Mass/Vol] 9 mg/dL Normal 9-24 [facility] Comment on above: Order Comment: Speci men Type: BLOOD SPECIMENOrdering Facility: [facility] Address: [address] [place] [address] Performed By: #### 2 777-1, , ####[facility] LABIA [id number] [address] [address] [place] CASE MANAGEMon 09-03-2024 CASE MANAGEM Normal [facility] CBC panel Auto (Bld)on 09-03 Erythrocyte distribution width (RBC) [Ratio] 13.2 % Normal 11.5-15.0 [facility] Comment on above: Order Comment: Speci men Type: BLOOD SPECIMENOrdering Facility: [facility] Address: [address] [place] [address] Performed By: #### 5 8410-2 ####[facility] LABIA [id number] [place] [address] [place] Hematocrit (Bld) [Volume fraction] 25.9 % Low 39.0-51.0 [facility] Comment on above: Order Comment: Speci men Type: BLOOD SPECIMENOrdering Facility: [facility] Address: [address] [place] [address] Performed By: #### 5 8410-2 ####[facility] LABIA [id number] [place] [address] [place] Hemoglobin (Bld) [Mass/Vol] 8.3 g/dL Low 13.0-17.0 [facility] Comment on above: Order Comment: Speci men Type: BLOOD SPECIMENOrdering Facility: [facility] Address: [address] [place] [address] Performed By: #### 5 8410-2 ####[facility] LABIA [id number] [place] [address] [place] MCH (RBC) [Entitic mass] 29.1 pg Normal 26.0-34.0 [facility] Comment on above: Order Comment: Speci men Type: BLOOD SPECIMENOrdering Facility: [facility] Address: [address] [place] [address] Performed By: #### 5 8410-2 ####[facility] LABIA [id number] [place] [address] [place] MCHC (RBC) [Mass/Vol] 32.0 g/dL Normal 30.5-36.0 [facility] Comment on above: Order Comment: Speci men Type: BLOOD SPECIMENOrdering Facility: [facility] Address: [address] [place] [address] Performed By: #### 5 8410-2 ####[facility] LABIA [id number] [place] [address] [place] MCV (RBC) [Entitic vol] 90.9 fL Normal 80.0-100.0 [facility] Comment on above: Order Comment: Speci men Type: BLOOD SPECIMENOrdering Facility: [facility] Address: [address] [place] [address] Performed By: #### 5 8410-2 ####[facility]CLIA [id number] [place] [address] [place] Nucleated RBC (Bld) [#/Vol] 0.03 10*3/uL High <0.01 [facility] Comment on above: Order Comment: Speci men Type: BLOOD SPECIMENOrdering Facility: [facility] Address: [address] [place] [address] Performed By: #### 5 8410-2 ####[facility]CLIA [id number] [place] [address] [place] Platelet mean volume (Bld) [Entitic vol] 9.4 fL Normal 9.0-12.7 [facility] Comment on above: Order Comment: Speci men Type: BLOOD SPECIMENOrdering Facility: [facility] Address: [address] [place] [address] Performed By: #### 5 8410-2 ####[facility] LABCLIA [id number] [place] [address] [place] Platelets (Bld) [#/Vol] 548 10*3/uL High 150-400 [facility] Comment on above: Order Comment: Speci men Type: BLOOD SPECIMENOrdering Facility: [facility] [facility] Address: [address] [place] [address] Performed By: #### 5 8410-2 ####[facility] LABCLIA [id number] [place] [address] [place] RBC (Bld) [#/Vol] 2.85 10*6/uL Low 4.20-6.00 [facility] Comment on above: Order Comment: Speci men Type: BLOOD SPECIMENOrdering Facility: [facility] Address: [address] [place] [address] Performed By: #### 5 8410-2 ####[facility] LABCLIA [id number] [place] [address] [place] WBC (Bld) [#/Vol] 13.25 10*3/uL High 3.70-11.[address] [facility] Comment on above: Order Comment: Speci men Type: BLOOD SPECIMENOrdering Facility: [facility] Address: [address] [place] [address] Performed By: #### 5 8410-2 ####[facility] LABIA [id number] [place] [address] [place] CNDSon 09-03-2024 CNDS Normal [facility] CONSULT PROGon 09-03-2024 CONSULT PROG Normal [facility] Magnesium SerPl-mCncon 09-03 Magnesium [Mass/Vol] 1.9 mg/dL Normal 1.7-2.[address] [facility] Comment on above: Order Comment: Speci men Type: BLOOD SPECIMENOrdering Facility: [facility] Address: [address] [place] [address] Performed By: #### 2 777-1, 19636-4, 88392-3 ####[facility] LABIA [id number] [place] [address] [place] NUTRITIONon 09-03-2024 NUTRITION Normal [facility] PT EDon 09-03-2024 PT ED Normal [facility] PT ED Normal [facility] Phosphate SerPl-mCncon 09-03 Phosphate [Mass/Vol] 2.2 mg/dL Low 2.7-4.[address] [facility] Comment on above: Order Comment: Speci men Type: BLOOD SPECIMENOrdering Facility: [facility] Address: [address] [place], [place] [address] Performed By: #### 2 777-1, 10987-0, ####[facility] LABCLIA [id number] [address] [address] [place] Basic metabolic 2000 panelon 09-02-2024 Anion gap [Moles/Vol] 13 mmol/L Normal 8-15 [facility] Comment on above: Order Comment: Speci men Type: BLOOD SPECIMENOrdering Facility: [facility] Address: [address] [place], [place] [address] Performed By: #### 2 777-1, , 42743-9 ####[facility] LABIA [id number] [place] [address] [place] Calcium [Mass/Vol] 8.6 mg/dL Normal 8.5-10.2 [facility] Comment on above: Order Comment: Speci men Type: BLOOD SPECIMENOrdering Facility: [facility] Address: [address] [place], [place] [address] Performed By: #### 2 777-1, , ####[facility] LABIA [id number] [place] [address] [place] Chloride [Moles/Vol] 101 mmol/L Normal 98-[address] [facility] Comment on above: Order Comment: Speci men Type: BLOOD SPECIMENOrdering Facility: [facility] Address: [address] [place] [address] Performed By: #### 2 777-1, , 37595-0 ####[facility] LABIA [id number] [place] [id number] [place] CO2 [Moles/Vol] 25 mmol/L Normal 22-30 [facility] Comment on above: Order Comment: Speci men Type: BLOOD SPECIMENOrdering Facility: [facility] Address: [address] [place] [address] Performed By: #### 2 777-1, , ####[facility] LABIA [id number] [place] [id number] [place] Creatinine [Mass/Vol] 0.84 mg/dL Normal 0.73-1.22 [facility] Comment on above: Order Comment: Speci men Type: BLOOD SPECIMENOrdering Facility: [facility] Address: [address] [place] [address] Performed By: #### 2 777-1, , ####[facility] LABIA [id number] [place] [address] [place] Creatinine and Glomerular filtration rate.predicted panel (S/P/Bld) 104 mL/min/1.73m??? Normal >=60 [facility] Comment on above: Order Comment: Theo narvaez Type: BLOOD SPECIMENOrdering Facility: [facility] Address: [address] [place] [address] Result Comment: Marisa mated Glomerular Filtration Rate [...] GFR. Performed By: #### 2 777-1, , ####[facility] LABIA [id number] [place] [id number] [place] Glucose [Mass/Vol] 119 mg/dL High 74-99 [facility] Comment on above: Order Comment: Speci men Type: BLOOD SPECIMENOrdering Facility: [facility] Address: [address] [place] [address] Result Comment: The [place] [employer] (ADA) provides guidance for cutoff [...] Standards of Medical Care in Diabetes 2016, [place] [employer]. Diabetes Care. 2016.39(Suppl 1). Performed By: #### 2 777-1, , ####[facility] LABCLIA [id number] [place] [address] [place] Potassium [Moles/Vol] 3.4 mmol/L Low 3.7-5.1 [facility] Comment on above: Order Comment: Yasmini men Type: BLOOD SPECIMENOrdering Facility: [facility] Address: [address] [place] [address] Performed By: #### 2 777-, , ####[facility] LABCLIA [id number] [place] [address] [place] Sodium [Moles/Vol] 139 mmol/L Normal 136-144 [facility] Comment on above: Order Comment: Theo narvaez Type: BLOOD SPECIMENOrdering Facility: [facility] Address: [address] [place] [address] Performed By: #### 2 777-, , 83560-7 ####[facility] LABCLIA [id number] [address] [address] [place] Urea nitrogen [Mass/Vol] 13 mg/dL Normal 9-24 [facility] Comment on above: Order Comment: Yasmini men Type: BLOOD SPECIMENOrdering Facility: [facility] Address: [address] [place] [address] Performed By: #### 2 777-1, , 61453-1 ####[facility] LABCLIA [id number] [place] [address] [place] CBC panel Auto (Bld)on 09-02 Erythrocyte distribution width (RBC) [Ratio] 13.0 % Normal 11.5-15.0 [facility] Comment on above: Order Comment: Speci men Type: BLOOD SPECIMENOrdering Facility: [facility] Address: [address] [place] [address] Performed By: #### 5 8410-2 ####[facility] LABIA [id number] [place] [address] [place] Hematocrit (Bld) [Volume fraction] 25.0 % Low 39.0-51.0 [facility] Comment on above: Order Comment: Speci men Type: BLOOD SPECIMENOrdering Facility: [facility] Address: [address] [place] [address] Performed By: #### 5 8410-2 ####[facility] LABIA [id number] [address] [place] Hemoglobin (Bld) [Mass/Vol] 8.0 g/dL Low 13.0-17.0 [facility] Comment on above: Order Comment: Speci men Type: BLOOD SPECIMENOrdering Facility: [facility] Address: [address] [place] [address] Performed By: #### 5 8410-2 ####[facility] LABIA [id number] [place] [address] [place] MCH (RBC) [Entitic mass] 28.9 pg Normal 26.0-34.0 [facility] Comment on above: Order Comment: Speci men Type: BLOOD SPECIMENOrdering Facility: [facility] Address: [address] [place] [address] Performed By: #### 5 8410-2 ####[facility] LABIA [id number] [place] [address] [place] MCHC (RBC) [Mass/Vol] 32.0 g/dL Normal 30.5-36.0 [facility] Comment on above: Order Comment: Speci men Type: BLOOD SPECIMENOrdering Facility: [facility] Address: [address] [place] [address] Performed By: #### 5 8410-2 ####[facility] LABIA [id number] [place] [address] [place] MCV (RBC) [Entitic vol] 90.3 fL Normal 80.0-100.0 [facility] Comment on above: Order Comment: Speci men Type: BLOOD SPECIMENOrdering Facility: [facility] Address: [address] [place] [address] Performed By: #### 5 8410-2 ####[facility] LABIA [id number] [place] [address] [place] Nucleated RBC (Bld) [#/Vol] 0.04 10*3/uL High <0.01 [facility] Comment on above: Order Comment: Speci men Type: BLOOD SPECIMENOrdering Facility: [facility] Address: [address] [place] [address] Performed By: #### 5 8410-2 ####[facility] LABIA [id number] [place] [address] [place] Platelet mean volume (Bld) [Entitic vol] 9.3 fL Normal 9.0-12.7 [facility] Comment on above: Order Comment: Speci men Type: BLOOD SPECIMENOrdering Facility: [facility] Address: [address] [place] [address] Performed By: #### 5 8410-2 ####[facility] LABIA [id number] [place] [address] [place] Platelets (Bld) [#/Vol] 435 10*3/uL High 150-400 [facility] Comment on above: Order Comment: Speci men Type: BLOOD SPECIMENOrdering Facility: [facility] Address: [address] [place] [address] Performed By: #### 5 8410-2 ####[facility] LABIA [id number] [place] [address] [place] RBC (Bld) [#/Vol] 2.77 10*6/uL Low 4.20-6.00 [facility] Comment on above: Order Comment: Speci men Type: BLOOD SPECIMENOrdering Facility: [facility] Address: [address] [place] [address] Performed By: #### 5 8410-2 ####[facility] [id number] [place] [address] [place] WBC (Bld) [#/Vol] 10.80 10*3/uL Normal 3.70-11.[address] [facility] Comment on above: Order Comment: Speci men Type: BLOOD SPECIMENOrdering Facility: [facility] Address: [address] [place] [address] Performed By: #### 5 8410-2 ####[facility] LABIA [id number] [place] [address] [place] CONSULT PROGon 09-02-2024 CONSULT PROG Normal [facility] Magnesium SerPl-mCncon 09-02 Magnesium [Mass/Vol] 1.9 mg/dL Normal 1.7-2.[address] [facility] Comment on above: Order Comment: Speci men Type: BLOOD SPECIMENOrdering Facility: [facility] Address: [address] [place] [address] Performed By: #### 2 777-1, 37803-4, 91477-7 ####[facility] LABIA [id number] [place] [address] [place] Phosphate SerPl-mCncon 09-02 Phosphate [Mass/Vol] 2.5 mg/dL Low 2.7-4.[address] [facility] Comment on above: Order Comment: Speci men Type: BLOOD SPECIMENOrdering Facility: [facility] Address: [address] [place] [address] Performed By: #### 2 777-1, , 73876-0 ####[facility] LABCLIA [id number] [address] [address] [place] Basic metabolic 2000 panelon 09-01-2024 Anion gap [Moles/Vol] 14 mmol/L Normal 8-15 [facility] Comment on above: Order Comment: Speci men Type: BLOOD SPECIMENOrdering Facility: [facility] Address: [address] [place] [address] Performed By: #### 2 4321-2, 2777, ####[facility] LABCLIA [id number] [place] [address] [place] Calcium [Mass/Vol] 8.4 mg/dL Low 8.5-10.2 [facility] Comment on above: Order Comment: Speci men Type: BLOOD SPECIMENOrdering Facility: [facility] Address: [address] [place] [address] Performed By: #### 2 4321-2, 27704-21, ####[facility] LABCLIA [id number] [place] [id number] [place] Chloride [Moles/Vol] 102 mmol/L Normal 98-[address] [facility] Comment on above: Order Comment: Speci men Type: BLOOD SPECIMENOrdering Facility: [facility] Address: [address] [place] [address] Performed By: #### 2 4321-2, 2776-10, ####[facility] LABCLIA [id number] [address] [address] [place] CO2 [Moles/Vol] 24 mmol/L Normal 22-30 [facility] Comment on above: Order Comment: Speci men Type: BLOOD SPECIMENOrdering Facility: [facility] Address: [address] [place] [id number] Performed By: #### 2 4321-2, 2776-10, ####[facility] LABCLIA [id number] [address] [address] [place] Creatinine [Mass/Vol] 0.73 mg/dL Normal 0.73-1.22 [facility] Comment on above: Order Comment: Theo men Type: BLOOD SPECIMENOrdering Facility: [facility] Address: [address] [place] [address] Performed By: #### 2 4321-2, 2776-10, ####[facility] LABIA [id number] [place] [address] [place] Creatinine and Glomerular filtration rate.predicted panel (S/P/Bld) 108 mL/min/1.73m??? Normal >=60 [facility] Comment on above: Order Comment: Theo brice Type: BLOOD SPECIMENOrdering Facility: [facility] Address: [address] [place] [address] Result Comment: Marisa mated Glomerular Filtration Rate [...] actual GFR. Performed By: #### 2 4321-2, 2776-10, ####[facility] LABIA [id number] [place] [id number] [place] Glucose [Mass/Vol] 158 mg/dL High 74-99 [facility] Comment on above: Order Comment: Theo brice Type: BLOOD SPECIMENOrdering Facility: [facility] Address: [address] [place] [address] Result Comment: The [place] [employer] (ADA) provides guidance for cutoff [...] Standards of Medical Care in Diabetes 2016, [place] [employer]. Diabetes Care. 2016.39(Suppl 1). Performed By: #### 2 4321-2, 27704-21, ####[facility] LABIA [id number] [place] [address] [place] Potassium [Moles/Vol] 4.0 mmol/L Normal 3.7-5.1 [facility] Comment on above: Order Comment: Speci men Type: BLOOD SPECIMENOrdering Facility: [facility] Address: [address] [place] [address] Performed By: #### 2 4321-2, 2776-10, ####[facility] [id number] [place] [address] [place] Sodium [Moles/Vol] 140 mmol/L Normal 136-144 [facility] Comment on above: Order Comment: Speci men Type: BLOOD SPECIMENOrdering Facility: [facility] Address: [address] [place] [address] Performed By: #### 2 4321-2, 27704-21, ####[facility] LABIA [id number] [place] [id number] [place] Urea nitrogen [Mass/Vol] 14 mg/dL Normal 9-24 [facility] Comment on above: Order Comment: Speci men Type: BLOOD SPECIMENOrdering Facility: [facility] Address: [address] [place] [address] Performed By: #### 2 4321-2, 2777-1, 92029-3 ####[facility] LABCLIA [id number] [place] [address] [place] CASE MANAGEMon 09-01-2024 CASE MANAGEM Normal [facility] CBC panel Auto (Bld)on 09-01 Erythrocyte distribution width (RBC) [Ratio] 13.1 % Normal 11.5-15.0 [facility] Comment on above: Order Comment: Speci men Type: BLOOD SPECIMENOrdering Facility: [facility] Address: [address] [place] [address] Performed By: #### 5 8410-2 ####[facility] LABIA [id number] [place] [address] [place] Hematocrit (Bld) [Volume fraction] 24.5 % Low 39.0-51.0 [facility] Comment on above: Order Comment: Speci men Type: BLOOD SPECIMENOrdering Facility: [facility] Address: [address] [place] [address] Performed By: #### 5 8410-2 ####[facility] LABIA [id number] [place] [address] [place] Hemoglobin (Bld) [Mass/Vol] 7.8 g/dL Low 13.0-17.0 [facility] Comment on above: Order Comment: Speci men Type: BLOOD SPECIMENOrdering Facility: [facility] Address: [address] [place] [address] Performed By: #### 5 8410-2 ####[facility] LABIA [id number] [place] [address] [place] MCH (RBC) [Entitic mass] 29.2 pg Normal 26.0-34.0 [facility] Comment on above: Order Comment: Speci men Type: BLOOD SPECIMENOrdering Facility: [facility] Address: [address] [place] [address] Performed By: #### 5 8410-2 ####[facility] LABIA [id number] [place] [address] [place] MCHC (RBC) [Mass/Vol] 31.8 g/dL Normal 30.5-36.0 [facility] Comment on above: Order Comment: Speci men Type: BLOOD SPECIMENOrdering Facility: [facility] Address: [address] [place] [address] Performed By: #### 5 8410-2 ####[facility] LABIA [id number] [place] [address] [place] MCV (RBC) [Entitic vol] 91.8 fL Normal 80.0-100.0 [facility] Comment on above: Order Comment: Speci men Type: BLOOD SPECIMENOrdering Facility: [facility] Address: [address] [place] [address] Performed By: #### 5 8410-2 ####[facility] [id number] [place] [address] [place] Nucleated RBC (Bld) [#/Vol] 10*3/uL Normal <0.01 [facility] Comment on above: Order Comment: Speci men Type: BLOOD SPECIMENOrdering Facility: [facility] Address: [address] [place] [address] Performed By: #### 5 8410-2 ####[facility] LABIA [id number] [place] [address] [place] Platelet mean volume (Bld) [Entitic vol] 9.6 fL Normal 9.0-12.7 [facility] Comment on above: Order Comment: Speci men Type: BLOOD SPECIMENOrdering Facility: [facility] Address: [address] [place] [address] Performed By: #### 5 8410-2 ####[facility] LABIA [id number] [id number] [address] [place] Platelets (Bld) [#/Vol] 349 10*3/uL Normal 150-400 [facility] Comment on above: Order Comment: Speci men Type: BLOOD SPECIMENOrdering Facility: [facility] Address: [address] [place] [address] Performed By: #### 5 8410-2 ####[facility] LABCLIA [id number] [place] [address] [place] RBC (Bld) [#/Vol] 2.67 10*6/uL Low 4.20-6.00 [facility] Comment on above: Order Comment: Speci men Type: BLOOD SPECIMENOrdering Facility: [facility] Address: [address] [place] [address] Performed By: #### 5 8410-2 ####[facility] LABCLIA [id number] [place] [address] [place] WBC (Bld) [#/Vol] 9.51 10*3/uL Normal 3.70-11.00 [facility] Comment on above: Order Comment: Speci men Type: BLOOD SPECIMENOrdering Facility: [facility] Address: [address] [place] [address] Performed By: #### 5 8410-2 ####[facility] LABCLIA [id number] [place] [address] [place] CONSULT PROGon 09-01-2024 CONSULT PROG Normal [facility] Magnesium SerPl-mCncon 09-01 Magnesium [Mass/Vol] 1.9 mg/dL Normal 1.7-2.[address] [facility] Comment on above: Order Comment: Speci men Type: BLOOD SPECIMENOrdering Facility: [facility] Address: [address] [place] [address] Performed By: #### 2 4321-2, 2777-1, 39232-3 ####[facility] LABCLIA [id number] [place] [address] [place] Phosphate SerPl-mCncon 09-01 Phosphate [Mass/Vol] 2.6 mg/dL Low 2.7-4.[address] [facility] Comment on above: Order Comment: Speci men Type: BLOOD SPECIMENOrdering Facility: [facility] Address: [address] [place] [address] Performed By: #### 2 4321-2, 27704-21, ####[facility] LABCLIA [id number] [place] [id number] [place] THERAPY NTon 09-01-2024 THERAPY NT Normal [facility] Basic metabolic 2000 panelon 08-31-2024 Anion gap [Moles/Vol] 12 mmol/L Normal 8-15 [facility] Comment on above: Order Comment: Speci men Type: BLOOD SPECIMENOrdering Facility: [facility] Address: [address] [place] [address] Performed By: #### 2 4321-2, 2776-10, ####[facility] LABCLIA [id number] [place] [address] [place] Calcium [Mass/Vol] 8.8 mg/dL Normal 8.5-10.2 [facility] Comment on above: Order Comment: Speci men Type: BLOOD SPECIMENOrdering Facility: [facility] Address: [address] [place] [address] Performed By: #### 2 4321-2, 27704-21, ####[facility] LABCLIA [id number] [address] [address] [place] Chloride [Moles/Vol] 100 mmol/L Normal 98-[address] [facility] Comment on above: Order Comment: Speci men Type: BLOOD SPECIMENOrdering Facility: [facility] Address: [address] [place] [address] Performed By: #### 2 4321-2, 27704-21, ####[facility] LABCLIA [id number] [place] [id number] [place] CO2 [Moles/Vol] 29 mmol/L Normal 22-30 [facility] Comment on above: Order Comment: Speci men Type: BLOOD SPECIMENOrdering Facility: [facility] Address: [address] [place] [address] Performed By: #### 2 4321-2, 27704-21, ####[facility] LABIA [id number] [place] [id number] [place] Creatinine [Mass/Vol] 0.80 mg/dL Normal 0.73-1.22 [facility] Comment on above: Order Comment: Speci men Type: BLOOD SPECIMENOrdering Facility: [facility] Address: [address] [place] [address] Performed By: #### 2 4321-2, 2776-10, ####[facility] LABIA [id number] [place] [address] [place] Creatinine and Glomerular filtration rate.predicted panel (S/P/Bld) 105 mL/min/1.73m??? Normal >=60 [facility] Comment on above: Order Comment: Yasmini men Type: BLOOD SPECIMENOrdering Facility: [facility] Address: [address] [place] [address] Result Comment: Marisa mated Glomerular Filtration Rate [...] actual GFR. Performed By: #### 2 4321-2, 2777-1, ####[facility] LABIA [id number] [address] [address] [place] Glucose [Mass/Vol] 190 mg/dL High 74-99 [facility] Comment on above: Order Comment: Speci men Type: BLOOD SPECIMENOrdering Facility: [facility] Address: [address] [place] [address] Result Comment: The [place] [employer] (ADA) provides guidance for cutoff [...] Standards of Medical Care in Diabetes 2016, [place] [employer]. Diabetes Care. 2016.39(Suppl 1). Performed By: #### 2 4321-2, 2776-10, ####[facility] LABCLIA [id number] [place] [address] [place] Potassium [Moles/Vol] 4.0 mmol/L Normal 3.7-5.1 [facility] Comment on above: Order Comment: Theo narvaez Type: BLOOD SPECIMENOrdering Facility: [facility] Address: [address] [place] [address] Performed By: #### 2 4321-2, 27704-21, ####[facility] LABCLIA [id number] [place] [address] [place] Sodium [Moles/Vol] 141 mmol/L Normal 136-144 [facility] Comment on above: Order Comment: Yasmini men Type: BLOOD SPECIMENOrdering Facility: [facility] Address: [address] [place] [address] Performed By: #### 2 4321-2, 27704-21, ####[facility] LABCLIA [id number] [place] [id number] [place] Urea nitrogen [Mass/Vol] 12 mg/dL Normal 9-24 [facility] Comment on above: Order Comment: Speci men Type: BLOOD SPECIMENOrdering Facility: [facility] Address: [address] [place] [address] Performed By: #### 2 4321-2, 2777-1, 23659-9 ####[facility] LABCLIA [id number] [place] [address] [place] CBC panel Auto (Bld)on 08-31 Erythrocyte distribution width (RBC) [Ratio] 13.1 % Normal 11.5-15.0 [facility] Comment on above: Order Comment: Speci men Type: BLOOD SPECIMENOrdering Facility: [facility] Address: [address] [place] [address] Performed By: #### 5 8410-2 ####[facility] LABCLIA [id number] [address] [place] Hematocrit (Bld) [Volume fraction] 25.9 % Low 39.0-51.0 [facility] Comment on above: Order Comment: Speci men Type: BLOOD SPECIMENOrdering Facility: [facility] Address: [address] [place] [address] Performed By: #### 5 8410-2 ####[facility] LABCLIA [id number] [address] [place] Hemoglobin (Bld) [Mass/Vol] 8.3 g/dL Low 13.0-17.0 [facility] Comment on above: Order Comment: Speci men Type: BLOOD SPECIMENOrdering Facility: [facility] Address: [address] [place] [address] Performed By: #### 5 8410-2 ####[facility] LABCLIA [id number] [place] [address] [place] MCH (RBC) [Entitic mass] 29.4 pg Normal 26.0-34.0 [facility] Comment on above: Order Comment: Speci men Type: BLOOD SPECIMENOrdering Facility: [facility] Address: [address] [place] [address] Performed By: #### 5 8410-2 ####[facility] LABIA [id number] [place] [address] [place] MCHC (RBC) [Mass/Vol] 32.0 g/dL Normal 30.5-36.0 [facility] Comment on above: Order Comment: Speci men Type: BLOOD SPECIMENOrdering Facility: [facility] Address: [address] [place] [address] Performed By: #### 5 8410-2 ####[facility] [id number] [place] [address] [place] MCV (RBC) [Entitic vol] 91.8 fL Normal 80.0-100.0 [facility] Comment on above: Order Comment: Speci men Type: BLOOD SPECIMENOrdering Facility: [facility] Address: [address] [place] [address] Performed By: #### 5 8410-2 ####[facility] [id number] [place] [address] [place] Nucleated RBC (Bld) [#/Vol] 10*3/uL Normal <0.01 [facility] Comment on above: Order Comment: Speci men Type: BLOOD SPECIMENOrdering Facility: [facility] Address: [address] [place] [address] Performed By: #### 5 8410-2 ####[facility] [id number] [place] [address] [place] Platelet mean volume (Bld) [Entitic vol] 9.6 fL Normal 9.0-12.7 [facility] Comment on above: Order Comment: Speci men Type: BLOOD SPECIMENOrdering Facility: [facility] Address: [address] [place] [address] Performed By: #### 5 8410-2 ####[facility] [id number] [place] [address] [place] Platelets (Bld) [#/Vol] 277 10*3/uL Normal 150-400 [facility] Comment on above: Order Comment: Speci men Type: BLOOD SPECIMENOrdering Facility: [facility] Address: [address] [place] [address] Performed By: #### 5 8410-2 ####[facility] [id number] [place] [address] [place] RBC (Bld) [#/Vol] 2.82 10*6/uL Low 4.20-6.00 [facility] Comment on above: Order Comment: Speci men Type: BLOOD SPECIMENOrdering Facility: [facility] Address: [address] [place] [address] Performed By: #### 5 8410-2 ####[facility] [id number] [place] [address] [place] WBC (Bld) [#/Vol] 14.25 10*3/uL High 3.70-11.[address] [facility] Comment on above: Order Comment: Speci men Type: BLOOD SPECIMENOrdering Facility: [facility] Address: [address] [place] [address] Performed By: #### 5 8410-2 ####[facility] [id number] [place] [id number] [place] CONSULT PROGon 08-31-2024 CONSULT PROG Normal [facility] Magnesium SerPl-mCncon 08-31 Magnesium [Mass/Vol] 2.0 mg/dL Normal 1.7-2.[address] [facility] Comment on above: Order Comment: Speci men Type: BLOOD SPECIMENOrdering Facility: [facility] Address: [address] [place] [address] Performed By: #### 2 4321-2, 2777-1, 74536-8 ####[facility] LABIA [id number] [place] [address] [place] Phosphate SerPl-mCncon 08-31 Phosphate [Mass/Vol] 2.8 mg/dL Normal 2.7-4.[address] [facility] Comment on above: Order Comment: Speci men Type: BLOOD SPECIMENOrdering Facility: [facility] Address: [address] [place] [address] Performed By: #### 2 4321-2, 2777-1, 98498-6 ####[facility] [id number] [place] [address] [place] C peptide SerPl-mCncon 08-30 C peptide [Mass/Vol] 0.2 ng/mL Low 1.1-4.[address] [facility] Comment on above: Order Comment: Speci men Type: BLOOD SPECIMENOrdering Facility: [facility] Address: [address] [place] [address] Performed By: #### 1 986-9 ####[facility] [id number] [place] [address] [place] CBC W Auto Differential pane l (Bld)on 08-30-2024 Basophils (Bld) [#/Vol] 0.05 10*3/uL Normal <0.11 [facility] Comment on above: Order Comment: Speci men Type: BLOOD SPECIMENOrdering Facility: [facility] Address: [address] [place] [address] Performed By: #### 5 7021-8 ####[facility] [id number] [place] [address] [place] Basophils/100 WBC (Bld) 0.3 % Normal [facility] Comment on above: Order Comment: Speci men Type: BLOOD SPECIMENOrdering Facility: [facility] Address: [address] [place] [address] Performed By: #### 5 7021-8 ####[facility] LABCLIA [id number] [place] [address] [place] Differential cell count method Nom (Bld) Auto Normal [facility] Comment on above: Order Comment: Speci men Type: BLOOD SPECIMENOrdering Facility: [facility] Address: [address] [place] [address] Performed By: #### 5 7021-8 ####[facility] LABCLIA [id number] [place] [address] [place] Eosinophils (Bld) [#/Vol] 0.05 10*3/uL Normal <0.46 [facility] Comment on above: Order Comment: Speci men Type: BLOOD SPECIMENOrdering Facility: [facility] Address: [address] [place] [address] Performed By: #### 5 7021-8 ####[facility] LABIA [id number] [place] [address] [place] Eosinophils/100 WBC (Bld) 0.3 % Normal [facility] Comment on above: Order Comment: Speci men Type: BLOOD SPECIMENOrdering Facility: [facility] Address: [address] [place] [address] Performed By: #### 5 7021-8 ####[facility] LABIA [id number] [place] [address] [place] Erythrocyte distribution width (RBC) [Ratio] 13.1 % Normal 11.5-15.0 [facility] Comment on above: Order Comment: Speci men Type: BLOOD SPECIMENOrdering Facility: [facility] Address: [address] [place] [address] Performed By: #### 5 7021-8 ####[facility] LABCLIA [id number] [place] [address] [place] Hematocrit (Bld) [Volume fraction] 21.9 % Low 39.0-51.0 [facility] Comment on above: Order Comment: Speci men Type: BLOOD SPECIMENOrdering Facility: [facility] Address: [address] [place] [address] Performed By: #### 5 7021-8 ####[facility] LABCLIA [id number] [place] [address] [place] Hemoglobin (Bld) [Mass/Vol] 7.2 g/dL Low 13.0-17.0 [facility] Comment on above: Order Comment: Speci men Type: BLOOD SPECIMENOrdering Facility: [facility] Address: [address] [place] [address] Performed By: #### 5 7021-8 ####[facility] LABIA [id number] [place] [address] [place] Immature granulocytes (Bld) [#/Vol] 0.06 10*3/uL Normal <0.10 [facility] Comment on above: Order Comment: Speci men Type: BLOOD SPECIMENOrdering Facility: [facility] Address: [address] [place] [address] Performed By: #### 5 7021-8 ####[facility] LABCLIA [id number] [place] [address] [place] Immature granulocytes/100 WBC (Bld) 0.4 % Normal [facility] Comment on above: Order Comment: Speci men Type: BLOOD SPECIMENOrdering Facility: [facility] Address: [address] [place] [address] Performed By: #### 5 7021-8 ####[facility] LABIA [id number] [place] [address] [place] Lymphocytes (Bld) [#/Vol] 1.59 10*3/uL Normal 1.00-4.00 [facility] Comment on above: Order Comment: Speci men Type: BLOOD SPECIMENOrdering Facility: [facility] Address: [address] [place] [address] Performed By: #### 5 7021-8 ####[facility] LABIA [id number] [place] [address] [place] Lymphocytes/100 WBC (Bld) 9.8 % Normal [facility] Comment on above: Order Comment: Speci men Type: BLOOD SPECIMENOrdering Facility: [facility] Address: [address] [place] [address] Performed By: #### 5 7021-8 ####[facility] LABIA [id number] [place] [address] [place] MCH (RBC) [Entitic mass] 29.0 pg Normal 26.0-34.0 [facility] Comment on above: Order Comment: Speci men Type: BLOOD SPECIMENOrdering Facility: [facility] Address: [address] [place] [address] Performed By: #### 5 7021-8 ####[facility] LABIA [id number] [place] [address] [place] MCHC (RBC) [Mass/Vol] 32.9 g/dL Normal 30.5-36.0 [facility] Comment on above: Order Comment: Speci men Type: BLOOD SPECIMENOrdering Facility: [facility] Address: [address] [place] [address] Performed By: #### 5 7021-8 ####[facility] LABIA [id number] [place] [address] [place] MCV (RBC) [Entitic vol] 88.3 fL Normal 80.0-100.0 [facility] Comment on above: Order Comment: Speci men Type: BLOOD SPECIMENOrdering Facility: [facility] Address: [address] [place] [address] Performed By: #### 5 7021-8 ####[facility] LABIA [id number] [place] [address] [place] Monocytes (Bld) [#/Vol] 1.67 10*3/uL High <0.87 [facility] Comment on above: Order Comment: Speci men Type: BLOOD SPECIMENOrdering Facility: [facility] Address: [address] [place] [address] Performed By: #### 5 7021-8 ####[facility] LABCLIA [id number] [place] [address] [place] Monocytes/100 WBC (Bld) 10.3 % Normal [facility] Comment on above: Order Comment: Speci men Type: BLOOD SPECIMENOrdering Facility: [facility] Address: [address] [place] [address] Performed By: #### 5 7021-8 ####[facility] LABCLIA [id number] [place] [address] [place] Neutrophils (Bld) [#/Vol] 12.86 10*3/uL High 1.45-7.50 [facility] Comment on above: Order Comment: Speci men Type: BLOOD SPECIMENOrdering Facility: [facility] Address: [address] [place] [address] Performed By: #### 5 7021-8 ####[facility] LABCLIA [id number] [place] [address] [place] Neutrophils/100 WBC (Bld) 78.9 % Normal [facility] Comment on above: Order Comment: Speci men Type: BLOOD SPECIMENOrdering Facility: [facility] Address: [address] [place] [address] Performed By: #### 5 7021-8 ####[facility] LABCLIA [id number] [place] [address] [place] Nucleated RBC (Bld) [#/Vol] 10*3/uL Normal <0.01 [facility] Comment on above: Order Comment: Speci men Type: BLOOD SPECIMENOrdering Facility: [facility] Address: [address] [place] [address] Performed By: #### 5 7021-8 ####[facility] LABCLIA [id number] [place] [address] [place] Nucleated RBC/100 WBC (Bld) [Ratio] 0.0 /100 WBC Normal [facility] Comment on above: Order Comment: Speci men Type: BLOOD SPECIMENOrdering Facility: [facility] Address: [address] [place] [address] Performed By: #### 5 7021-8 ####[facility] LABIA [id number] [place] [address] [place] Platelet mean volume (Bld) [Entitic vol] 9.7 fL Normal 9.0-12.7 [facility] Comment on above: Order Comment: Speci men Type: BLOOD SPECIMENOrdering Facility: [facility] Address: [address] [place] [address] Performed By: #### 5 7021-8 ####[facility] LABIA [id number] [place] [address] [place] Platelets (Bld) [#/Vol] 207 10*3/uL Normal 150-400 [facility] Comment on above: Order Comment: Speci men Type: BLOOD SPECIMENOrdering Facility: [facility] Address: [address] [place] [address] Performed By: #### 5 7021-8 ####[facility] LABCLIA [id number] [place] [address] [place] RBC (Bld) [#/Vol] 2.48 10*6/uL Low 4.20-6.00 [facility] Comment on above: Order Comment: Speci men Type: BLOOD SPECIMENOrdering Facility: [facility] Address: [address] [place] [address] Performed By: #### 5 7021-8 ####[facility] LABCLIA [id number] [place] [address] [place] WBC (Bld) [#/Vol] 16.28 10*3/uL High 3.70-11.[address] [facility] Comment on above: Order Comment: Speci men Type: BLOOD SPECIMENOrdering Facility: [facility] Address: [address] [place] [address] Performed By: #### 5 7021-8 ####[facility] LABIA [id number] [place] [address] [place] CBC panel Auto (Bld)on 08-30 Erythrocyte distribution width (RBC) [Ratio] 13.1 % Normal 11.5-15.0 [facility] Comment on above: Order Comment: Speci men Type: BLOOD SPECIMENOrdering Facility: [facility] Address: [address] [place] [address] Performed By: #### 5 8410-2 ####[facility] LABIA [id number] [place] [address] [place] Hematocrit (Bld) [Volume fraction] 26.8 % Low 39.0-51.0 [facility] Comment on above: Order Comment: Speci men Type: BLOOD SPECIMENOrdering Facility: [facility] Address: [address] [place] [address] Performed By: #### 5 8410-2 ####[facility] LABIA [id number] [place] [address] [place] Hemoglobin (Bld) [Mass/Vol] 8.9 g/dL Low 13.0-17.0 [facility] Comment on above: Order Comment: Speci men Type: BLOOD SPECIMENOrdering Facility: [facility] Address: [address] [place] [address] Performed By: #### 5 8410-2 ####[facility] LABIA [id number] [place] [address] [place] MCH (RBC) [Entitic mass] 29.6 pg Normal 26.0-34.0 [facility] Comment on above: Order Comment: Speci men Type: BLOOD SPECIMENOrdering Facility: [facility] Address: [address] [place] [address] Performed By: #### 5 8410-2 ####[facility] LABCLIA [id number] [place] [address] [place] MCHC (RBC) [Mass/Vol] 33.2 g/dL Normal 30.5-36.0 [facility] Comment on above: Order Comment: Speci men Type: BLOOD SPECIMENOrdering Facility: [facility] Address: [address] [place] [address] Performed By: #### 5 8410-2 ####[facility] LABCLIA [id number] [place] [address] [place] MCV (RBC) [Entitic vol] 89.0 fL Normal 80.0-100.0 [facility] Comment on above: Order Comment: Speci men Type: BLOOD SPECIMENOrdering Facility: [facility] Address: [address] [place] [address] Performed By: #### 5 8410-2 ####[facility] LABIA [id number] [place] [address] [place] Nucleated RBC (Bld) [#/Vol] 10*3/uL Normal <0.01 [facility] Comment on above: Order Comment: Speci men Type: BLOOD SPECIMENOrdering Facility: [facility] Address: [address] [place] [address] Performed By: #### 5 8410-2 ####[facility] LABCLIA [id number] [place] [address] [place] Platelet mean volume (Bld) [Entitic vol] 10.6 fL Normal 9.0-12.7 [facility] Comment on above: Order Comment: Speci men Type: BLOOD SPECIMENOrdering Facility: [facility] Address: [address] [place] [address] Performed By: #### 5 8410-2 ####[facility] LABCLIA [id number] [place] [address] [place] Platelets (Bld) [#/Vol] 223 10*3/uL Normal 150-400 [facility] Comment on above: Order Comment: Speci men Type: BLOOD SPECIMENOrdering Facility: [facility] Address: [address] [place] [address] Performed By: #### 5 8410-2 ####[facility] LABIA [id number] [place] [address] [place] RBC (Bld) [#/Vol] 3.01 10*6/uL Low 4.20-6.00 [facility] Comment on above: Order Comment: Speci men Type: BLOOD SPECIMENOrdering Facility: [facility] Address: [address] [place] [address] Performed By: #### 5 8410-2 ####[facility] LABIA [id number] [place] [address] [place] WBC (Bld) [#/Vol] 17.79 10*3/uL High 3.70-11.[address] [facility] Comment on above: Order Comment: Speci men Type: BLOOD SPECIMENOrdering Facility: [facility] Address: [address] [place] [address] Performed By: #### 5 8410-2 ####[facility] LABIA [id number] [place] [address] [place] Erythrocyte distribution width (RBC) [Ratio] 12.9 % Normal 11.5-15.0 [facility] Comment on above: Order Comment: Speci men Type: BLOOD SPECIMENOrdering Facility: [facility] Address: [address] [place] [address] Performed By: #### 5 8410-2 ####[facility] LABIA [id number] [place] [address] [place] Hematocrit (Bld) [Volume fraction] 26.1 % Low 39.0-51.0 [facility] Comment on above: Order Comment: Speci men Type: BLOOD SPECIMENOrdering Facility: [facility] Address: [address] [place] [address] Performed By: #### 5 8410-2 ####[facility] [id number] [place] [address] [place] Hemoglobin (Bld) [Mass/Vol] 8.8 g/dL Low 13.0-17.0 [facility] Comment on above: Order Comment: Speci men Type: BLOOD SPECIMENOrdering Facility: [facility] Address: [address] [place] [address] Performed By: #### 5 8410-2 ####[facility] [id number] [place] [address] [place] MCH (RBC) [Entitic mass] 29.7 pg Normal 26.0-34.0 [facility] Comment on above: Order Comment: Speci men Type: BLOOD SPECIMENOrdering Facility: [facility] Address: [address] [place] [address] Performed By: #### 5 8410-2 ####[facility] [id number] [place] [address] [place] MCHC (RBC) [Mass/Vol] 33.7 g/dL Normal 30.5-36.0 [facility] Comment on above: Order Comment: Speci men Type: BLOOD SPECIMENOrdering Facility: [facility] Address: [address] [place] [address] Performed By: #### 5 8410-2 ####[facility] [id number] [place] [address] [place] MCV (RBC) [Entitic vol] 88.2 fL Normal 80.0-100.0 [facility] Comment on above: Order Comment: Speci men Type: BLOOD SPECIMENOrdering Facility: [facility] Address: [address] [place] [address] Performed By: #### 5 8410-2 ####[facility] LABCL[facility] [id number] [place] [address] [place] Nucleated RBC (Bld) [#/Vol] 10*3/uL Normal <0.01 [facility] Comment on above: Order Comment: Speci men Type: BLOOD SPECIMENOrdering Facility: [facility] Address: [address] [place] [address] Performed By: #### 5 8410-2 ####[facility] LABIA [id number] [place] [address] [place] Platelet mean volume (Bld) [Entitic vol] 9.2 fL Normal 9.0-12.7 [facility] [facility] Comment on above: Order Comment: Speci men Type: BLOOD SPECIMENOrdering Facility: [facility] Address: [address] [place] [address] Performed By: #### 5 8410-2 ####[facility] LABIA [id number] [place] [address] [place] Platelets (Bld) [#/Vol] 194 10*3/uL Normal 150-400 [facility] Comment on above: Order Comment: Speci men Type: BLOOD SPECIMENOrdering Facility: [facility] Address: [address] [place] [address] Performed By: #### 5 8410-2 ####[facility] LABIA [id number] [place] [address] [place] RBC (Bld) [#/Vol] 2.96 10*6/uL Low 4.20-6.00 [facility] Comment on above: Order Comment: Speci men Type: BLOOD SPECIMENOrdering Facility: [facility] Address: [address] [place] [address] Performed By: #### 5 8410-2 ####[facility] LABCLIA [id number] [place] [address] [place] WBC (Bld) [#/Vol] 17.35 10*3/uL High 3.70-11.[address] [facility] Comment on above: Order Comment: Speci men Type: BLOOD SPECIMENOrdering Facility: [facility] Address: [address] [place] [address] Performed By: #### 5 8410-2 ####[facility] LABIA [id number] [place] [address] [place] Erythrocyte distribution width (RBC) [Ratio] 12.9 % Normal 11.5-15.0 [facility] Comment on above: Order Comment: Speci men Type: BLOOD SPECIMENOrdering Facility: [facility] Address: [address] [place] [address] Performed By: #### 5 8410-2 ####[facility] LABIA [id number] [place] [address] [place] Hematocrit (Bld) [Volume fraction] 22.0 % Low 39.0-51.0 [facility] Comment on above: Order Comment: Speci men Type: BLOOD SPECIMENOrdering Facility: [facility] Address: [address] [place] [address] Performed By: #### 5 8410-2 ####[facility] LABCLIA [id number] [place] [address] [place] Hemoglobin (Bld) [Mass/Vol] 7.1 g/dL Low 13.0-17.0 [facility] Comment on above: Order Comment: Speci men Type: BLOOD SPECIMENOrdering Facility: [facility] Address: [address] [place] [address] Performed By: #### 5 8410-2 ####[facility] LABCLIA [id number] [place] [address] [place] MCH (RBC) [Entitic mass] 29.0 pg Normal 26.0-34.0 [facility] Comment on above: Order Comment: Speci men Type: BLOOD SPECIMENOrdering Facility: [facility] Address: [address] [place] [address] Performed By: #### 5 8410-2 ####[facility] [id number] [place] [address] [place] MCHC (RBC) [Mass/Vol] 32.3 g/dL Normal 30.5-36.0 [facility] Comment on above: Order Comment: Speci men Type: BLOOD SPECIMENOrdering Facility: [facility] Address: [address] [place] [address] Performed By: #### 5 8410-2 ####[facility] [id number] [place] [address] [place] MCV (RBC) [Entitic vol] 89.8 fL Normal 80.0-100.0 [facility] Comment on above: Order Comment: Speci men Type: BLOOD SPECIMENOrdering Facility: [facility] Address: [address] [place] [address] Performed By: #### 5 8410-2 ####[facility] [id number] [place] [address] [place] Nucleated RBC (Bld) [#/Vol] 10*3/uL Normal <0.01 [facility] Comment on above: Order Comment: Speci men Type: BLOOD SPECIMENOrdering Facility: [facility] Address: [address] [place] [address] Performed By: #### 5 8410-2 ####[facility] LABR[facility] [id number] [place] [address] [place] Platelet mean volume (Bld) [Entitic vol] 9.5 fL Normal 9.0-12.7 [facility] Comment on above: Order Comment: Speci men Type: BLOOD SPECIMENOrdering Facility: [facility] Address: [address] [place] [address] Performed By: #### 5 8410-2 ####[facility] LABCLIA [id number] [place] [address] [place] Platelets (Bld) [#/Vol] 211 10*3/uL Normal 150-400 [facility] Comment on above: Order Comment: Speci men Type: BLOOD SPECIMENOrdering Facility: [facility] Address: [address] [place] [address] Performed By: #### 5 8410-2 ####[facility] LABCLIA [id number] [place] [address] [place] RBC (Bld) [#/Vol] 2.45 10*6/uL Low 4.20-6.00 [facility] Comment on above: Order Comment: Speci men Type: BLOOD SPECIMENOrdering Facility: [facility] Address: [address] [place] [address] Performed By: #### 5 8410-2 ####[facility] LABCLIA [id number] [place] [address] [place] WBC (Bld) [#/Vol] 17.80 10*3/uL High 3.70-11.[address] [facility] Comment on above: Order Comment: Speci men Type: BLOOD SPECIMENOrdering Facility: [facility] Address: [address] [place] [address] Performed By: #### 5 8410-2 ####[facility] LABCLIA [id number] [place] [address] [place] CONSULT PROGon 08-30-2024 CONSULT PROG Normal [facility] CRP SerPl-mCncon 08-30-2024 CRP [Mass/Vol] 21.6 mg/dL High <0.9 [facility] Comment on above: Order Comment: Speci men Type: BLOOD SPECIMENOrdering Facility: [facility] Address: [address] [place] [address] Performed By: #### 2 777-1, , , 1988-02 ####[facility] LABCLIA [id number] [address] [address] [place] Comprehensive metabolic 2000 panelon 08-30-2024 Albumin [Mass/Vol] 3.6 g/dL Low 3.9-4.9 [facility] Comment on above: Order Comment: Speci men Type: BLOOD SPECIMENOrdering Facility: [facility] Address: [address] [place] [address] Performed By: #### 2 777-1, , , 1988-02 ####[facility] LABCLIA [id number] [place] [address] [place] ALP [Catalytic activity/Vol] 63 U/L Normal 38-113 [facility] Comment on above: Order Comment: Speci men Type: BLOOD SPECIMENOrdering Facility: [facility] Address: [address] [place] [address] Result Comment: Resu lts may be falsely decreased due to interference from hemolysis. Suggest reorder as clinically indicated. Performed By: #### 2 777-1, , , 1988-02 ####[facility] LABCLIA [id number] [facility] [place] [id number] [place] ALT [Catalytic activity/Vol] 80 U/L High 10-54 [facility] Comment on above: Order Comment: Speci men Type: BLOOD SPECIMENOrdering Facility: [facility] Address: [address] [place] [address] Result Comment: Resu lts may be falsely increased due to interference from hemolysis. Suggest reorder as clinically indicated. Performed By: #### 2 777-1, , , 1988-02 ####[facility] LABCLIA [id number] [address] [address] [place] Anion gap [Moles/Vol] 13 mmol/L Normal 8-15 [facility] Comment on above: Order Comment: Speci men Type: BLOOD SPECIMENOrdering Facility: [facility] Address: [address] [place] [address] Performed By: #### 2 777-1, , , 1988-02 ####[facility] LABCLIA [id number] [address] [address] [place] AST [Catalytic activity/Vol] 77 U/L High 14-40 [facility] Comment on above: Order Comment: Speci men Type: BLOOD SPECIMENOrdering Facility: [facility] Address: [address] [place] [address] Result Comment: Resu lts may be falsely increased due to interference from hemolysis. Suggest reorder as clinically indicated. Performed By: #### 2 777-1, , , 1988-02 ####[facility] LABCLIA [id number] [address] [address] [place] Bilirubin [Mass/Vol] 0.4 mg/dL Normal 0.2-1.[address] [facility] Comment on above: Order Comment: Speci men Type: BLOOD SPECIMENOrdering Facility: [facility] Address: [address] [place] [address] Performed By: #### 2 777-1, , , 1988-02 ####[facility] LABCLIA [id number] [address] [address] [place] Calcium [Mass/Vol] 8.5 mg/dL Normal 8.5-10.2 [facility] Comment on above: Order Comment: Speci men Type: BLOOD SPECIMENOrdering Facility: [facility] Address: [address] [place] [address] Performed By: #### 2 777-1, , , 1988-02 ####[facility] LABCLIA [id number] [address] [address] [place] Chloride [Moles/Vol] 99 mmol/L Normal 98-[address] [facility] Comment on above: Order Comment: Speci men Type: BLOOD SPECIMENOrdering Facility: [facility] Address: [address] [place] [address] Performed By: #### 2 777-1, , , 1988-02 ####[facility] LABCLIA [id number] [place] [id number] [place] CO2 [Moles/Vol] 25 mmol/L Normal 22-30 [facility] Comment on above: Order Comment: Speci men Type: BLOOD SPECIMENOrdering Facility: [facility] Address: [address] [place] [address] Performed By: #### 2 777-1, , , 1988-02 ####[facility] LABCLIA [id number] [place] [address] [place] Creatinine [Mass/Vol] 0.79 mg/dL Normal 0.73-1.22 [facility] Comment on above: Order Comment: Speci men Type: BLOOD SPECIMENOrdering Facility: [facility] Address: [address] [place] [address] Performed By: #### 2 777-1, , , 1988-02 ####[facility] LABCLIA [id number] [place] [id number] [place] Creatinine and Glomerular filtration rate.predicted panel (S/P/Bld) 106 mL/min/1.73m??? Normal >=60 [facility] Comment on above: Order Comment: Speci men Type: BLOOD SPECIMENOrdering Facility: [facility] Address: [address] [place] [address] Result Comment: Marisa mated Glomerular Filtration Rate [...] GFR. Performed By: #### 2 777-1, , , 1988-02 ####[facility] LABIA [id number] [place] [address] [place] Glucose [Mass/Vol] 203 mg/dL High 74-99 [facility] Comment on above: Order Comment: Theo narvaez Type: BLOOD SPECIMENOrdering Facility: [facility] Address: [address] [place] [address] Result Comment: The [place] [employer] (ADA) provides guidance for cutoff [...] Standards of Medical Care in Diabetes 2016, [place] [employer]. Diabetes Care. 2016.39(Suppl 1). Performed By: #### 2 777-1, , , 1988-02 ####[facility] LABIA [id number] [place] [id number] [place] Potassium [Moles/Vol] Normal [facility] Comment on above: Order Comment: Theo narvaez Type: BLOOD SPECIMENOrdering Facility: [facility] Address: [address] [place] [address] Result Comment: Unab le to assay due to interference from hemolysis. Suggest reorder as clinically indicated. Performed By: #### 2 777-1, , , 1988-02 ####[facility] LABCLIA [id number] [address] [address] [place] Protein [Mass/Vol] 5.9 g/dL Low 6.3-8.0 [facility] Comment on above: Order Comment: Speci men Type: BLOOD SPECIMENOrdering Facility: [facility] Address: [address] [place], [place] [address] Performed By: #### 2 777-1, , , 1988-02 ####[facility] LABIA [id number] [place] [id number] [place] Sodium [Moles/Vol] 137 mmol/L Normal 136-144 [facility] Comment on above: Order Comment: Speci men Type: BLOOD SPECIMENOrdering Facility: [facility] Address: [address] [place], [place] [address] Performed By: #### 2 777-1, , , 1988-02 ####[facility] LABIA [id number] [address] [address] [place] Urea nitrogen [Mass/Vol] 9 mg/dL Normal 9-24 [facility] Comment on above: Order Comment: Speci men Type: BLOOD SPECIMENOrdering Facility: [facility] Address: [address] [place], [place] [address] Performed By: #### 2 777-1, , , 1988-02 ####[facility] LABIA [id number] [address] [address] [place] Albumin [Mass/Vol] 3.9 g/dL Normal 3.9-4.9 [facility] Comment on above: Order Comment: Speci men Type: BLOOD SPECIMENOrdering Facility: [facility] Address: [address] [place], [place] [address] Performed By: #### 2 4323-8, 13341-9, 2776-10 ####[facility] LABCLIA [id number] [place] [address] [place] ALP [Catalytic activity/Vol] 56 U/L Normal 38-113 [facility] Comment on above: Order Comment: Speci men Type: BLOOD SPECIMENOrdering Facility: [facility] Address: [address] [place] [address] Performed By: #### 2 4323-8, , 2776-10 ####[facility] LABCLIA [id number] [place] [address] [place] ALT [Catalytic activity/Vol] 98 U/L High 10-54 [facility] Comment on above: Order Comment: Speci men Type: BLOOD SPECIMENOrdering Facility: [facility] Address: [address] [place] [address] Performed By: #### 2 4323-8, , 2776-10 ####[facility] LABCLIA [id number] [place] [address] [place] Anion gap [Moles/Vol] 9 mmol/L Normal 8-15 [facility] Comment on above: Order Comment: Speci men Type: BLOOD SPECIMENOrdering Facility: [facility] Address: [address] [place] [address] Performed By: #### 2 4323-8, , 2776-10 ####[facility] LABCLIA [id number] [place] [id number] [place] AST [Catalytic activity/Vol] 82 U/L High 14-40 [facility] Comment on above: Order Comment: Speci men Type: BLOOD SPECIMENOrdering Facility: [facility] Address: [address] [place] [address] Performed By: #### 2 4323-8, 71030-9, 2776- ####[facility] LABCLIA [id number] [place] [id number] [place] Bilirubin [Mass/Vol] 0.3 mg/dL Normal 0.2-1.[address] [facility] Comment on above: Order Comment: Speci men Type: BLOOD SPECIMENOrdering Facility: [facility] Address: [address] [place] [address] Performed By: #### 2 4323-8, , 2776-10 ####[facility] LABCLIA [id number] [place] [id number] [place] Calcium [Mass/Vol] 8.2 mg/dL Low 8.5-10.2 [facility] Comment on above: Order Comment: Speci men Type: BLOOD SPECIMENOrdering Facility: [facility] Address: [address] [place] [address] Performed By: #### 2 4323-8, , 2776-10 ####[facility] LABCLIA [id number] [place] [address] [place] Chloride [Moles/Vol] 101 mmol/L Normal 98-[address] [facility] Comment on above: Order Comment: Speci men Type: BLOOD SPECIMENOrdering Facility: [facility] Address: [address] [place] [address] Performed By: #### 2 4323-8, , 2776-10 ####[facility] LABCLIA [id number] [place] [id number] [place] CO2 [Moles/Vol] 27 mmol/L Normal 22-30 [facility] Comment on above: Order Comment: Speci men Type: BLOOD SPECIMENOrdering Facility: [facility] Address: [address] [place] [address] Performed By: #### 2 4323-8, , 2776-10 ####[facility] LABCLIA [id number] [place] [id number] [place] Creatinine [Mass/Vol] 0.98 mg/dL Normal 0.73-1.22 [facility] Comment on above: Order Comment: Theo narvaez Type: BLOOD SPECIMENOrdering Facility: [facility] Address: [address] [place] [address] Performed By: #### 2 4323-8, 50367-2, 2776-10 ####[facility] LABCLIA [id number] [address] [facility] Creatinine and Glomerular filtration rate.predicted panel (S/P/Bld) 92 mL/min/1.73m??? Normal >=60 [facility] Comment on above: Order Comment: Theo narvaez Type: BLOOD SPECIMENOrdering Facility: [facility] Address: [address] [place] [address] Result Comment: Marisa mated Glomerular Filtration Rate [...] GFR. Performed By: #### 2 4323-8, , 2776-10 ####[facility] LABCLIA [id number] [place] [address] [place] Glucose [Mass/Vol] 172 mg/dL High 74-99 [facility] Comment on above: Order Comment: Theo narvaez Type: BLOOD SPECIMENOrdering Facility: [facility] Address: [address] [place] [address] Result Comment: The [place] [employer] (ADA) provides guidance for cutoff [...] Standards of Medical Care in Diabetes 2016, [place] [employer]. Diabetes Care. 2016.39(Suppl 1). Performed By: #### 2 4323-8, , 2776-10 ####[facility] LABCLIA [id number] [place] [address] [place] Potassium [Moles/Vol] 4.0 mmol/L Normal 3.7-5.1 [facility] Comment on above: Order Comment: Speci men Type: BLOOD SPECIMENOrdering Facility: [facility] Address: [address] [place] [address] Performed By: #### 2 432-8, , 2776-10 ####[facility] LABCLIA [id number] [place] [address] [place] Protein [Mass/Vol] 5.4 g/dL Low 6.3-8.0 [facility] Comment on above: Order Comment: Speci men Type: BLOOD SPECIMENOrdering Facility: [facility] Address: [address] [place] [address] Performed By: #### 2 432-8, , 2776-10 ####[facility] LABCLIA [id number] [place] [id number] [place] Sodium [Moles/Vol] 137 mmol/L Normal 136-144 [facility] Comment on above: Order Comment: Speci men Type: BLOOD SPECIMENOrdering Facility: [facility] Address: [address] [place] [address] Performed By: #### 2 4323-8, , 2776-10 ####[facility] LABCLIA [id number] [address] [address] [place] Urea nitrogen [Mass/Vol] 12 mg/dL Normal 9-24 [facility] Comment on above: Order Comment: Speci men Type: BLOOD SPECIMENOrdering Facility: [facility] Address: [address] [place] [address] Performed By: #### 2 4323-8, , 2776-10 ####[facility] LABCLIA [id number] [place] [id number] [place] Magnesium SerPl-mCncon 08-30 Magnesium [Mass/Vol] 2.1 mg/dL Normal 1.7-2.[address] [facility] Comment on above: Order Comment: Speci men Type: BLOOD SPECIMENOrdering Facility: [facility] Address: [address] [place] [address] Performed By: #### 2 777-1, 15810-9, 60760-4, 1988-02 ####[facility] LABCLIA [id number] [place] [address] [place] Magnesium [Mass/Vol] 1.9 mg/dL Normal 1.7-2.[address] [facility] Comment on above: Order Comment: Speci men Type: BLOOD SPECIMENOrdering Facility: [facility] Address: [address] [place] [address] Performed By: #### 2 4323-8, , 2776-10 ####[facility] LABCLIA [id number] [place] [address] [place] PT panel Coag (PPP)on 2023 INR Coag (PPP) [Relative time] 1.1 {INR} Normal 0.9-1.3 [facility] Comment on above: Order Comment: Speci men Type: BLOOD SPECIMENOrdering Facility: [facility] Address: [address] [place] [address] Result Comment: Carmita min K Antagonist (VKA) Therapeutic Range: INR 2 to 3 (Target INR of 2.5)Note: For patients treated with VKA drugs, such as warfarin, the [place] [employer] 2012 Guideline recommends [...] 2.5 to 3.5 (target INR of 3).Daren GH, et al. Chest 2012, 141:7S-47SNishbeverley RA, et al. [facility] 2017, 70: 252-289 Performed By: #### 3 4528-0, 50260-8 ####[facility] LABCLIA [id number] [place] [address] [place] PT Coag (PPP) [Time] 11.4 s Normal 9.7-13.[address] [facility] Comment on above: Order Comment: Theo narvaez Type: BLOOD SPECIMENOrdering Facility: [facility] Address: [address] [place] [address] Performed By: #### 3 4528-0, 99765-4 ####[facility] LABCLIA [id number] [place] [address] [place] INR Coag (PPP) [Relative time] 1.1 {INR} Normal 0.9-1.3 [facility] Comment on above: Order Comment: Theo narvaez Type: BLOOD SPECIMENOrdering Facility: [facility] Address: [address] [place] [address] Result Comment: Carmita min K Antagonist (VKA) Therapeutic Range: INR 2 to 3 (Target INR of 2.5)Note: For patients treated with VKA drugs, such as warfarin, the [place] [employer] 2012 Guideline recommends [...] of 3).Daren CASON, et al. Chest 2012, 141:7S-47SMargot RA, et al. [facility] 2017, 70: 252-289 Performed By: #### 1 4979-9, 65940-8 ####[facility] LABIA [id number] [place] [address] [place] PT Coag (PPP) [Time] 11.7 s Normal 9.7-13.[address] [facility] Comment on above: Order Comment: Theo narvaez Type: BLOOD SPECIMENOrdering Facility: [facility] Address: [address] [place] [address] Performed By: #### 1 4979-9, 08406-8 ####[facility] [id number] [place] [id number] [place] Phosphate SerPl-mCncon 08-30 Phosphate [Mass/Vol] 1.9 mg/dL Low 2.7-4.[address] [facility] Comment on above: Order Comment: Theo narvaez Type: BLOOD SPECIMENOrdering Facility: [facility] Address: [address] [place] [address] Performed By: #### 2 777-1, 56592-8, 89578-9, 1988-02 ####[facility] [id number] [place] [id number] [place] Phosphate [Mass/Vol] 1.9 mg/dL Low 2.7-4.[address] [facility] [facility] Comment on above: Order Comment: Theo narvaez Type: BLOOD SPECIMENOrdering Facility: [facility] Address: [address] [place] [address] Result Comment: Resu lt rechecked. Performed By: #### 2 4323-8, 33803-9, 2777-1 ####[facility] LABIA [id number] [place] [id number] [place] aPTT PPPon 08-30-2024 aPTT Coag (PPP) [Time] 27.9 s Normal 23.0-32.4 [facility] Comment on above: Order Comment: Speci men Type: BLOOD SPECIMENOrdering Facility: [facility] Address: [address] [place] [address] Performed By: #### 3 4528-0, 33401-5 ####[facility] LABIA [id number] [address] [place] aPTT Coag (PPP) [Time] 31.4 s Normal 23.0-32.4 [facility] Comment on above: Order Comment: Speci men Type: BLOOD SPECIMENOrdering Facility: [facility] Address: [address] [place] [address] Performed By: #### 1 4979-9, 39251-1 ####[facility] LABIA [id number] [place] [address] [place] Basic metabolic 2000 panelon 08-29-2024 Anion gap [Moles/Vol] 13 mmol/L Normal 8-15 [facility] Comment on above: Order Comment: Speci men Type: BLOOD SPECIMENOrdering Facility: [facility] Address: [address] [place] [address] Performed By: #### 2 4325-3, 70530-9 ####[facility] [id number] [place] [address] [place] Calcium [Mass/Vol] 8.0 mg/dL Low 8.5-10.2 [facility] Comment on above: Order Comment: Speci men Type: BLOOD SPECIMENOrdering Facility: [facility] Address: [address] [place] [address] Performed By: #### 2 4325-3, 48823-9 ####[facility] LABCLIA [id number] [address] [address] [place] Chloride [Moles/Vol] 103 mmol/L Normal 98-[address] [facility] Comment on above: Order Comment: Speci men Type: BLOOD SPECIMENOrdering Facility: [facility] Address: [address] [place] [address] Performed By: #### 2 4325-3, 49389-8 ####[facility] LABCLIA [id number] [place] [address] [place] CO2 [Moles/Vol] 22 mmol/L Normal 22-30 [facility] Comment on above: Order Comment: Speci men Type: BLOOD SPECIMENOrdering Facility: [facility] Address: [address] [place] [address] Performed By: #### 2 4323, 93489-0 ####[facility] LABCLIA [id number] [place] [address] [place] Creatinine [Mass/Vol] 0.93 mg/dL Normal 0.73-1.22 [facility] Comment on above: Order Comment: Speci men Type: BLOOD SPECIMENOrdering Facility: [facility] Address: [address] [place] [address] Performed By: #### 2 4325-3, 49127-5 ####[facility] LABIA [id number] [place] [address] [place] Creatinine and Glomerular filtration rate.predicted panel (S/P/Bld) 98 mL/min/1.73m??? Normal >=60 [facility] Comment on above: Order Comment: Speci men Type: BLOOD SPECIMENOrdering Facility: [facility] Address: [address] [place] [address] Result Comment: Marisa mated Glomerular Filtration Rate [...] actual GFR. Performed By: #### 2 4325-3, 31060-7 ####[facility] LABCLIA [id number] [address] [address] [place] Glucose [Mass/Vol] 206 mg/dL High 74-99 [facility] Comment on above: Order Comment: Speci men Type: BLOOD SPECIMENOrdering Facility: [facility] Address: [address] [place] [address] Result Comment: The [place] [employer] (ADA) provides guidance for cutoff [...] Standards of Medical Care in Diabetes 2016, [place] [employer]. Diabetes Care. 2016.39(Suppl 1). Performed By: #### 2 4324-3, 67607-6 ####[facility] LABCLIA [id number] [place] [id number] [place] Potassium [Moles/Vol] Normal [facility] Comment on above: Order Comment: Theo narvaez Type: BLOOD SPECIMENOrdering Facility: [facility] Address: [address] [place] [address] Result Comment: Unab le to assay due to interference from hemolysis. Suggest reorder as clinically indicated. Performed By: #### 2 4325-3, 14831-2 ####[facility] LABCLIA [id number] [place] [id number] [place] Sodium [Moles/Vol] 138 mmol/L Normal 136-144 [facility] Comment on above: Order Comment: Speci men Type: BLOOD SPECIMENOrdering Facility: [facility] Address: [address] [place] [address] Performed By: #### 2 4325-3, 00054-4 ####[facility] LABCLIA [id number] [place] [address] [place] Urea nitrogen [Mass/Vol] 14 mg/dL Normal 9-24 [facility] Comment on above: Order Comment: Speci men Type: BLOOD SPECIMENOrdering Facility: [facility] Address: [address] [place] [address] Performed By: #### 2 4325-3, 04683-8 ####[facility] LABCLIA [id number] [place] [address] [place] CASE MGT INIT ASSESon 2023 CASE MGT INIT ASSES Normal [facility] CBC W Auto Differential pane l (Bld)on 08-29-2024 Basophils (Bld) [#/Vol] 10*3/uL Normal <0.11 [facility] Comment on above: Order Comment: Speci men Type: BLOOD SPECIMENOrdering Facility: [facility] Address: [address] [place] [address] Performed By: #### 5 7021-8 ####[facility] LABCLIA [id number] [place] [address] [place] Basophils/100 WBC (Bld) 0.1 % Normal [facility] Comment on above: Order Comment: Speci men Type: BLOOD SPECIMENOrdering Facility: [facility] Address: [address] [place] [address] Performed By: #### 5 7021-8 ####[facility] LABCLIA [id number] [place] [address] [place] Differential cell count method Nom (Bld) Auto Normal [facility] Comment on above: Order Comment: Speci men Type: BLOOD SPECIMENOrdering Facility: [facility] Address: [address] [place] [address] Performed By: #### 5 7021-8 ####[facility] LABCLIA [id number] [place] [address] [place] Eosinophils (Bld) [#/Vol] 10*3/uL Normal <0.46 [facility] Comment on above: Order Comment: Speci men Type: BLOOD SPECIMENOrdering Facility: [facility] Address: [address] [place] [address] Performed By: #### 5 7021-8 ####[facility] LABCLIA [id number] [place] [address] [place] Eosinophils/100 WBC (Bld) 0.0 % Normal [facility] Comment on above: Order Comment: Speci men Type: BLOOD SPECIMENOrdering Facility: [facility] Address: [address] [place] [address] Performed By: #### 5 7021-8 ####[facility] LABCLIA [id number] [place] [address] [place] Erythrocyte distribution width (RBC) [Ratio] 12.8 % Normal 11.5-15.0 [facility] Comment on above: Order Comment: Speci men Type: BLOOD SPECIMENOrdering Facility: [facility] Address: [address] [place] [address] Performed By: #### 5 7021-8 ####[facility] LABCLIA [id number] [place] [address] [place] Hematocrit (Bld) [Volume fraction] 26.7 % Low 39.0-51.0 [facility] Comment on above: Order Comment: Speci men Type: BLOOD SPECIMENOrdering Facility: [facility] Address: [address] [place] [address] Performed By: #### 5 7021-8 ####[facility] LABCLIA [id number] [place] [address] [place] Hemoglobin (Bld) [Mass/Vol] 9.0 g/dL Low 13.0-17.0 [facility] Comment on above: Order Comment: Speci men Type: BLOOD SPECIMENOrdering Facility: [facility] Address: [address] [place] [address] Performed By: #### 5 7021-8 ####[facility] LABCLIA [id number] [place] [address] [place] Immature granulocytes (Bld) [#/Vol] 0.09 10*3/uL Normal <0.10 [facility] Comment on above: Order Comment: Speci men Type: BLOOD SPECIMENOrdering Facility: [facility] Address: [address] [place] [address] Performed By: #### 5 7021-8 ####[facility] LABCLIA [id number] [place] [address] [place] Immature granulocytes/100 WBC (Bld) 0.6 % Normal [facility] Comment on above: Order Comment: Speci men Type: BLOOD SPECIMENOrdering Facility: [facility] Address: [address] [place] [address] Performed By: #### 5 7021-8 ####[facility] LABCLIA [id number] [place] [address] [place] Lymphocytes (Bld) [#/Vol] 0.83 10*3/uL Low 1.00-4.00 [facility] Comment on above: Order Comment: Speci men Type: BLOOD SPECIMENOrdering Facility: [facility] Address: [address] [place] [address] Performed By: #### 5 7021-8 ####[facility] LABCLIA [id number] [place] [address] [place] Lymphocytes/100 WBC (Bld) 5.7 % Normal [facility] Comment on above: Order Comment: Speci men Type: BLOOD SPECIMENOrdering Facility: [facility] Address: [address] [place] [address] Performed By: #### 5 7021-8 ####[facility] LABIA [id number] [place] [address] [place] MCH (RBC) [Entitic mass] 29.7 pg Normal 26.0-34.0 [facility] Comment on above: Order Comment: Speci men Type: BLOOD SPECIMENOrdering Facility: [facility] Address: [address] [place] [address] Performed By: #### 5 7021-8 ####[facility] LABIA [id number] [place] [address] [place] MCHC (RBC) [Mass/Vol] 33.7 g/dL Normal 30.5-36.0 [facility] Comment on above: Order Comment: Speci men Type: BLOOD SPECIMENOrdering Facility: [facility] Address: [address] [place] [address] Performed By: #### 5 7021-8 ####[facility] LABIA [id number] [place] [address] [place] MCV (RBC) [Entitic vol] 88.1 fL Normal 80.0-100.0 [facility] Comment on above: Order Comment: Speci men Type: BLOOD SPECIMENOrdering Facility: [facility] Address: [address] [place] [address] Performed By: #### 5 7021-8 ####[facility] LABIA [id number] [place] [address] [place] Monocytes (Bld) [#/Vol] 1.13 10*3/uL High <0.87 [facility] Comment on above: Order Comment: Speci men Type: BLOOD SPECIMENOrdering Facility: [facility] Address: [address] [place] [address] Performed By: #### 5 7021-8 ####[facility] LABCLIA [id number] [address] [address] [place] Monocytes/100 WBC (Bld) 7.7 % Normal [facility] Comment on above: Order Comment: Speci men Type: BLOOD SPECIMENOrdering Facility: [facility] Address: [address] [place] [address] Performed By: #### 5 7021-8 ####[facility] LABCLIA [id number] [place] [address] [place] Neutrophils (Bld) [#/Vol] 12.57 10*3/uL High 1.45-7.50 [facility] Comment on above: Order Comment: Speci men Type: BLOOD SPECIMENOrdering Facility: [facility] Address: [address] [place] [address] Performed By: #### 5 7021-8 ####[facility] LABCLIA [id number] [place] [address] [place] Neutrophils/100 WBC (Bld) 85.9 % Normal [facility] Comment on above: Order Comment: Speci men Type: BLOOD SPECIMENOrdering Facility: [facility] Address: [address] [place] [address] Performed By: #### 5 7021-8 ####[facility] LABCLIA [id number] [place] [address] [place] Nucleated RBC (Bld) [#/Vol] 10*3/uL Normal <0.01 [facility] Comment on above: Order Comment: Speci men Type: BLOOD SPECIMENOrdering Facility: [facility] Address: [address] [place] [address] Performed By: #### 5 7021-8 ####[facility] LABCLIA [id number] [place] [address] [place] Nucleated RBC/100 WBC (Bld) [Ratio] 0.0 /100 WBC Normal [facility] Comment on above: Order Comment: Speci men Type: BLOOD SPECIMENOrdering Facility: [facility] Address: [address] [place] [address] Performed By: #### 5 7021-8 ####[facility] LABIA [id number] [place] [address] [place] Platelet mean volume (Bld) [Entitic vol] 9.9 fL Normal 9.0-12.7 [facility] Comment on above: Order Comment: Speci men Type: BLOOD SPECIMENOrdering Facility: [facility] Address: [address] [place] [address] Performed By: #### 5 7021-8 ####[facility] LABIA [id number] [place] [address] [place] Platelets (Bld) [#/Vol] 209 10*3/uL Normal 150-400 [facility] Comment on above: Order Comment: Speci men Type: BLOOD SPECIMENOrdering Facility: [facility] Address: [address] [place] [address] Performed By: #### 5 7021-8 ####[facility] LABIA [id number] [place] [address] [place] RBC (Bld) [#/Vol] 3.03 10*6/uL Low 4.20-6.00 [facility] Comment on above: Order Comment: Speci men Type: BLOOD SPECIMENOrdering Facility: [facility] Address: [address] [place] [address] Performed By: #### 5 7021-8 ####[facility] LABIA [id number] [place] [address] [place] WBC (Bld) [#/Vol] 14.63 10*3/uL High 3.70-11.[address] [facility] Comment on above: Order Comment: Speci men Type: BLOOD SPECIMENOrdering Facility: [facility] Address: [address] [place] [address] Performed By: #### 5 7021-8 ####[facility] LABCLIA [id number] [place] [address] [place] CONSULTon 08-29-2024 CONSULT Normal [facility] Hepatic function 2000 panelo n 08-29-2024 Albumin [Mass/Vol] 3.7 g/dL Low 3.9-4.9 [facility] Comment on above: Order Comment: Speci men Type: BLOOD SPECIMENOrdering Facility: [facility] Address: [address] [place] [address] Performed By: #### 2 4325-3, 01901-9 ####[facility] LABCLIA [id number] [place] [address] [place] ALP [Catalytic activity/Vol] 55 U/L Normal 38-113 [facility] Comment on above: Order Comment: Speci men Type: BLOOD SPECIMENOrdering Facility: [facility] Address: [address] [place] [address] Performed By: #### 2 4325-3, 99671-3 ####[facility] LABIA [id number] [place] [address] [place] ALT [Catalytic activity/Vol] 113 U/L High 10-54 [facility] Comment on above: Order Comment: Speci men Type: BLOOD SPECIMENOrdering Facility: [facility] Address: [address] [place] [address] Result Comment: Resu lts may be falsely increased due to interference from hemolysis. Suggest reorder as clinically indicated. Performed By: #### 2 4325-3, 42557-9 ####[facility] LABCLIA [id number] [place] [address] [place] AST [Catalytic activity/Vol] 121 U/L High 14-40 [facility] Comment on above: Order Comment: Speci men Type: BLOOD SPECIMENOrdering Facility: [facility] Address: [address] [place] [address] Result Comment: Resu lts may be falsely increased due to interference from hemolysis. Suggest reorder as clinically indicated. Performed By: #### 2 4325-3, 65380-1 ####[facility] LABCLIA [id number] [place] [address] [place] Bilirubin [Mass/Vol] 0.6 mg/dL Normal 0.2-1.[address] [facility] Comment on above: Order Comment: Speci men Type: BLOOD SPECIMENOrdering Facility: [facility] Address: [address] [place] [address] Performed By: #### 2 4325-3, 85572-7 ####[facility] LABCLIA [id number] [place] [address] [place] Bilirubin.conjugated [Mass/Vol] mg/dL Normal <0.2 [facility] Comment on above: Order Comment: Speci men Type: BLOOD SPECIMENOrdering Facility: [facility] Address: [address] [place] [address] Result Comment: Resu lts may be falsely decreased due to interference from hemolysis. Suggest reorder as clinically indicated. Performed By: #### 2 4325-3, 07502-9 ####[facility] LABCLIA [id number] [place] [address] [place] Protein [Mass/Vol] 5.3 g/dL Low 6.3-8.0 [facility] Comment on above: Order Comment: Speci men Type: BLOOD SPECIMENOrdering Facility: [facility] Address: [address] [place] [address] Performed By: #### 2 4325-3, 21825-9 ####[facility] LABCLIA [id number] [place] [address] [place] Lactate (Bld) [Moles/Vol]on 08-29-2024 Lactate [Moles/Vol] 1.8 mmol/L Normal 0.5-2.2 [facility] Comment on above: Order Comment: Speci men Type: BLOOD SPECIMENOrdering Facility: [facility] Address: [address] [place] [address] Performed By: #### 3 2693-4 ####[facility] LABIA [id number] [place] [address] [place] NUTRITIONon 08-29-2024 NUTRITION Normal [facility] THERAPY NTon 08-29-2024 THERAPY NT Normal [facility] THERAPY NT Normal [facility] ANES POSTPROC EVALon 024 ANES POSTPROC EVAL Normal [facility] ANES PRE-OPon 08-28-2024 ANES PRE-OP Normal [facility] ARTERIAL BLOOD GASESon 08-28 Base excess Calc (Bld) [Moles/Vol] 0 mmol/L Normal 0-2 [facility] Comment on above: Order Comment: Speci men Type: ARTERIAL BLOOD SPECIMENOrdering Facility: [facility] Address: [address] [place] [address] Performed By: #### A LLBG ####[facility] LABIA [id number] [place] [address] [place] Calcium.ionized (Bld) [Mass/Vol] 1.14 mmol/L Normal 1.08-1.30 [facility] Comment on above: Order Comment: Speci men Type: ARTERIAL BLOOD SPECIMENOrdering Facility: [facility] Address: [address] [place] [address] Performed By: #### A LLBG ####[facility] LABIA [id number] [place] [address] [place] Calcium.ionized adjusted to pH 7.4 (BldA) [Moles/Vol] 1.12 mmol/L Normal 1.08-1.30 [facility] Comment on above: Order Comment: Speci men Type: ARTERIAL BLOOD SPECIMENOrdering Facility: [facility] Address: [address] [place] [address] Performed By: #### A LLBG ####[facility] LABCLIA [id number] [place] [address] [place] Carboxyhemoglobin (BldA) [Mass fraction] 1.3 % Normal 0.0-2.0 [facility] Comment on above: Order Comment: Speci men Type: ARTERIAL BLOOD SPECIMENOrdering Facility: [facility] Address: [address] [place] [address] Result Comment: Carb oxyhemoglobin Reference Range for Smokers: 2.0-8.0% Performed By: #### A LLBG ####[facility] LABCLIA [id number] [place] [address] [place] CO2 (Bld) [Partial pressure] 44 mm Hg Normal 36-46 [facility] Comment on above: Order Comment: Speci men Type: ARTERIAL BLOOD SPECIMENOrdering Facility: [facility] Address: [address] [place] [address] Performed By: #### A LLBG ####[facility] LABCLIA [id number] [place] [address] [place] CO2 adjusted to patient's actual temperature (Bld) [Partial pressure] 44 mmHg Normal 36-46 [facility] Comment on above: Order Comment: Speci men Type: ARTERIAL BLOOD SPECIMENOrdering Facility: [facility] Address: [address] [place] [address] Performed By: #### A LLBG ####[facility] LABCLIA [id number] [place] [address] [place] Glucose [Mass/Vol] 171 mg/dL High 60-105 [facility] Comment on above: Order Comment: Speci men Type: ARTERIAL BLOOD SPECIMENOrdering Facility: [facility] Address: [address] [place] [address] Performed By: #### A LLBG ####[facility] LABCLIA [id number] [place] [address] [place] HCO3 (Bld) [Moles/Vol] 25 mmol/L Normal 22-26 [facility] Comment on above: Order Comment: Speci men Type: ARTERIAL BLOOD SPECIMENOrdering Facility: [facility] Address: [address] [place] [address] Performed By: #### A LLBG ####[facility] LABCLIA [id number] [place] [address] [place] Hematocrit (Bld) [Volume fraction] 26.6 % Low 39.0-51.0 [facility] Comment on above: Order Comment: Speci men Type: ARTERIAL BLOOD SPECIMENOrdering Facility: [facility] Address: [address] [place] [address] Performed By: #### A LLBG ####[facility] LABCLIA [id number] [place] [address] [place] Hemoglobin (Bld) [Mass/Vol] 8.6 g/dL Low 13.0-17.0 [facility] Comment on above: Order Comment: Speci men Type: ARTERIAL BLOOD SPECIMENOrdering Facility: [facility] Address: [address] [place] [address] Performed By: #### A LLBG ####[facility] LABCLIA [id number] [place] [address] [place] Lactate [Moles/Vol] 3.3 mmol/L High 0.5-2.2 [facility] Comment on above: Order Comment: Speci men Type: ARTERIAL BLOOD SPECIMENOrdering Facility: [facility] Address: [address] [place] [address] Performed By: #### A LLBG ####[facility] LABCLIA [id number] [place] [address] [place] Methemoglobin (Bld) [Mass fraction] 0.7 % Normal 0.0-1.5 [facility] Comment on above: Order Comment: Speci men Type: ARTERIAL BLOOD SPECIMENOrdering Facility: [facility] Address: [address] [place] [id number] Performed By: #### A LLBG ####[facility] [facility] LABCLIA [id number] [place] [id number] [place] Oxygen (Bld) [Partial pressure] 201 mm Hg High 85-95 [facility] Comment on above: Order Comment: Speci men Type: ARTERIAL BLOOD SPECIMENOrdering Facility: [facility] Address: [address] [place] [address] Performed By: #### A LLBG ####[facility] LABCLIA [id number] [place] [address] [place] Oxygen adjusted to patient's actual temperature (Bld) [Partial pressure] 201 mmHg High 85-95 [facility] Comment on above: Order Comment: Speci men Type: ARTERIAL BLOOD SPECIMENOrdering Facility: [facility] Address: [address] [place] [address] Performed By: #### A LLBG ####[facility] LABCLIA [id number] [place] [address] [place] Oxyhemoglobin (BldA) [Mass fraction] 98 % Normal 95-98 [facility] Comment on above: Order Comment: Speci men Type: ARTERIAL BLOOD SPECIMENOrdering Facility: [facility] Address: [address] [place] [address] Performed By: #### A LLBG ####[facility] LABCLIA [id number] [place] [id number] [place] pH (Bld) 7.36 [pH] Normal 7.35-7.45 [facility] Comment on above: Order Comment: Speci men Type: ARTERIAL BLOOD SPECIMENOrdering Facility: [facility] Address: [address] [place], [place] [id number] Performed By: #### A LLBG ####[facility] LABCLIA [id number] [place] [address] [place] pH adjusted to patient's actual temperature (Bld) 7.36 Normal 7.35-7.45 [facility] Comment on above: Order Comment: Speci men Type: ARTERIAL BLOOD SPECIMENOrdering Facility: [facility] Address: [address] [place] [address] Performed By: #### A LLBG ####[facility] LABCLIA [id number] [place] [address] [place] Potassium [Moles/Vol] 3.6 mmol/L Normal 3.5-5.0 [facility] Comment on above: Order Comment: Speci men Type: ARTERIAL BLOOD SPECIMENOrdering Facility: [facility] Address: [address] [place] [address] Performed By: #### A LLBG ####[facility] LABCLIA [id number] [place] [address] [place] Sodium [Moles/Vol] 138 mmol/L Normal 136-144 [facility] Comment on above: Order Comment: Speci men Type: ARTERIAL BLOOD SPECIMENOrdering Facility: [facility] Address: [address] [place] [address] Performed By: #### A LLBG ####[facility] LABCLIA [id number] [place] [address] [place] ARTERIAL BLOOD GASES WITH IO NIZED MAGNESIUMon 08-28-2024 Base excess Calc (Bld) [Moles/Vol] 1 mmol/L Normal 0-2 [facility] Comment on above: Order Comment: Speci men Type: ARTERIAL BLOOD SPECIMENOrdering Facility: [facility] Address: [address] [place] [address] Performed By: #### A LLMG ####[facility] LABCLIA [id number] [place] [address] [place] Calcium.ionized (Bld) [Mass/Vol] 1.16 mmol/L Normal 1.08-1.30 [facility] Comment on above: Order Comment: Speci men Type: ARTERIAL BLOOD SPECIMENOrdering Facility: [facility] Address: [address] [place] [address] Performed By: #### A LLMG ####[facility] LABCLIA [id number] [place] [address] [place] Calcium.ionized adjusted to pH 7.4 (BldA) [Moles/Vol] 1.15 mmol/L Normal 1.08-1.30 [facility] Comment on above: Order Comment: Speci men Type: ARTERIAL BLOOD SPECIMENOrdering Facility: [facility] Address: [address] [place] [address] Performed By: #### A LLMG ####[facility] LABIA [id number] [place] [address] [place] Carboxyhemoglobin (BldA) [Mass fraction] 1.5 % Normal 0.0-2.0 [facility] Comment on above: Order Comment: Speci men Type: ARTERIAL BLOOD SPECIMENOrdering Facility: [facility] Address: [address] [place] [address] Result Comment: Carb oxyhemoglobin Reference Range for Smokers: 2.0-8.0% Performed By: #### A LLMG ####[facility] LABIA [id number] [place] [address] [place] CO2 (Bld) [Partial pressure] 42 mm Hg Normal 36-46 [facility] Comment on above: Order Comment: Speci men Type: ARTERIAL BLOOD SPECIMENOrdering Facility: [facility] Address: [address] [place] [address] Performed By: #### A LLMG ####[facility] LABCLIA [id number] [place] [address] [place] CO2 adjusted to patient's actual temperature (Bld) [Partial pressure] 42 mmHg Normal 36-46 [facility] Comment on above: Order Comment: Speci men Type: ARTERIAL BLOOD SPECIMENOrdering Facility: [facility] Address: [address] [place] [address] Performed By: #### A LLMG ####[facility] LABCLIA [id number] [place] [address] [place] Glucose [Mass/Vol] 220 mg/dL High 60-105 [facility] Comment on above: Order Comment: Speci men Type: ARTERIAL BLOOD SPECIMENOrdering Facility: [facility] Address: [address] [place] [address] Performed By: #### A LLMG ####[facility] LABCLIA [id number] [place] [address] [place] HCO3 (Bld) [Moles/Vol] 25 mmol/L Normal 22-26 [facility] Comment on above: Order Comment: Speci men Type: ARTERIAL BLOOD SPECIMENOrdering Facility: [facility] Address: [address] [place] [address] Performed By: #### A LLMG ####[facility] LABCLIA [id number] [place] [address] [place] Hematocrit (Bld) [Volume fraction] 32.3 % Low 39.0-51.0 [facility] Comment on above: Order Comment: Speci men Type: ARTERIAL BLOOD SPECIMENOrdering Facility: [facility] Address: [address] [place] [address] Performed By: #### A LLMG ####[facility] LABCLIA [id number] [place] [address] [place] Hemoglobin (Bld) [Mass/Vol] 10.4 g/dL Low 13.0-17.0 [facility] Comment on above: Order Comment: Speci men Type: ARTERIAL BLOOD SPECIMENOrdering Facility: [facility] Address: [address] [place] [address] Performed By: #### A LLMG ####[facility] LABCLIA [id number] [place] [address] [place] Lactate [Moles/Vol] 2.0 mmol/L Normal 0.5-2.2 [facility] Comment on above: Order Comment: Speci men Type: ARTERIAL BLOOD SPECIMENOrdering Facility: [facility] Address: [address] [place] [address] Performed By: #### A LLMG ####[facility] LABCLIA [id number] [place] [address] [place] Magnesium [Moles/Vol] 0.40 mmol/L Low 0.45-0.60 [facility] Comment on above: Order Comment: Speci men Type: ARTERIAL BLOOD SPECIMENOrdering Facility: [facility] Address: [address] [place] [address] Performed By: #### A LLMG ####[facility] LABCLIA [id number] [place] [address] [place] Methemoglobin (Bld) [Mass fraction] 0.5 % Normal 0.0-1.5 [facility] Comment on above: Order Comment: Speci men Type: ARTERIAL BLOOD SPECIMENOrdering Facility: [facility] Address: [address] [place] [address] Performed By: #### A LLMG ####[facility] LABCLIA [id number] [place] [address] [place] Oxygen (Bld) [Partial pressure] 179 mm Hg High 85-95 [facility] Comment on above: Order Comment: Speci men Type: ARTERIAL BLOOD SPECIMENOrdering Facility: [facility] Address: [address] [place] [address] Performed By: #### A LLMG ####[facility] LABCLIA [id number] [place] [address] [place] Oxygen adjusted to patient's actual temperature (Bld) [Partial pressure] 179 mmHg High 85-95 [facility] Comment on above: Order Comment: Speci men Type: ARTERIAL BLOOD SPECIMENOrdering Facility: [facility] Address: [address] [place] [address] Performed By: #### A LLMG ####[facility] LABCLIA [id number] [place] [address] [place] Oxyhemoglobin (BldA) [Mass fraction] 98 % Normal 95-98 [facility] Comment on above: Order Comment: Speci men Type: ARTERIAL BLOOD SPECIMENOrdering Facility: [facility] Address: [address] [place] [address] Performed By: #### A LLMG ####[facility] LABIA [id number] [place] [address] [place] pH (Bld) 7.40 [pH] Normal 7.35-7.45 [facility] Comment on above: Order Comment: Speci men Type: ARTERIAL BLOOD SPECIMENOrdering Facility: [facility] Address: [address] [place] [address] Performed By: #### A LLMG ####[facility] LABIA [id number] [place] [address] [place] pH adjusted to patient's actual temperature (Bld) 7.40 Normal 7.35-7.45 [facility] Comment on above: Order Comment: Speci men Type: ARTERIAL BLOOD SPECIMENOrdering Facility: [facility] Address: [address] [place] [address] Performed By: #### A LLMG ####[facility] LABCLIA [id number] [place] [address] [place] Potassium [Moles/Vol] 4.1 mmol/L Normal 3.5-5.0 [facility] Comment on above: Order Comment: Speci men Type: ARTERIAL BLOOD SPECIMENOrdering Facility: [facility] Address: [address] [place] [address] Performed By: #### A LLMG ####[facility] LABCLIA [id number] [place] [address] [place] Sodium [Moles/Vol] 137 mmol/L Normal 136-144 [facility] Comment on above: Order Comment: Speci men Type: ARTERIAL BLOOD SPECIMENOrdering Facility: [facility] Address: [address] [place] [address] Performed By: #### A LLMG ####[facility] LABIA [id number] [place] [address] [place] Base excess Calc (Bld) [Moles/Vol] 2 mmol/L Normal 0-2 [facility] Comment on above: Order Comment: Speci men Type: ARTERIAL BLOOD SPECIMENOrdering Facility: [facility] Address: [address] [place] [address] Performed By: #### A LLMG ####[facility] LABIA [id number] [place] [address] [place] Calcium.ionized (Bld) [Mass/Vol] 1.21 mmol/L Normal 1.08-1.30 [facility] Comment on above: Order Comment: Speci men Type: ARTERIAL BLOOD SPECIMENOrdering Facility: [facility] Address: [address] [place] [address] Performed By: #### A LLMG ####[facility] LABIA [id number] [place] [address] [place] Calcium.ionized adjusted to pH 7.4 (BldA) [Moles/Vol] 1.22 mmol/L Normal 1.08-1.30 [facility] Comment on above: Order Comment: Speci men Type: ARTERIAL BLOOD SPECIMENOrdering Facility: [facility] Address: [address] [place] [address] Performed By: #### A LLMG ####[facility] LABIA [id number] [place] [address] [place] Carboxyhemoglobin (BldA) [Mass fraction] 1.5 % Normal 0.0-2.0 [facility] Comment on above: Order Comment: Speci men Type: ARTERIAL BLOOD SPECIMENOrdering Facility: [facility] Address: [address] [place] [address] Result Comment: Carb oxyhemoglobin Reference Range for Smokers: 2.0-8.0% Performed By: #### A LLMG ####[facility] LABCLIA [id number] [place] [address] [place] CO2 (Bld) [Partial pressure] 40 mm Hg Normal 36-46 [facility] Comment on above: Order Comment: Speci men Type: ARTERIAL BLOOD SPECIMENOrdering Facility: [facility] Address: [address] [place] [address] Performed By: #### A LLMG ####[facility] LABCLIA [id number] [place] [address] [place] CO2 adjusted to patient's actual temperature (Bld) [Partial pressure] 40 mmHg Normal 36-46 [facility] Comment on above: Order Comment: Speci men Type: ARTERIAL BLOOD SPECIMENOrdering Facility: [facility] Address: [address] [place] [address] Performed By: #### A LLMG ####[facility] LABCLIA [id number] [place] [address] [place] Glucose [Mass/Vol] 142 mg/dL High 60-105 [facility] Comment on above: Order Comment: Speci men Type: ARTERIAL BLOOD SPECIMENOrdering Facility: [facility] Address: [address] [place] [address] Performed By: #### A LLMG ####[facility] LABCLIA [id number] [place] [address] [place] HCO3 (Bld) [Moles/Vol] 26 mmol/L Normal 22-26 [facility] Comment on above: Order Comment: Speci men Type: ARTERIAL BLOOD SPECIMENOrdering Facility: [facility] Address: [address] [place] [address] Performed By: #### A LLMG ####[facility] LABCLIA [id number] [place] [address] [place] Hematocrit (Bld) [Volume fraction] 37.7 % Low 39.0-51.0 [facility] Comment on above: Order Comment: Speci men Type: ARTERIAL BLOOD SPECIMENOrdering Facility: [facility] Address: [address] [place] [address] Performed By: #### A LLMG ####[facility] LABIA [id number] [place] [address] [place] Hemoglobin (Bld) [Mass/Vol] 12.3 g/dL Low 13.0-17.0 [facility] Comment on above: Order Comment: Speci men Type: ARTERIAL BLOOD SPECIMENOrdering Facility: [facility] Address: [address] [place] [address] Performed By: #### A LLMG ####[facility] LABIA [id number] [place] [address] [place] Lactate [Moles/Vol] 1.8 mmol/L Normal 0.5-2.2 [facility] Comment on above: Order Comment: Speci men Type: ARTERIAL BLOOD SPECIMENOrdering Facility: [facility] Address: [address] [place] [address] Performed By: #### A LLMG ####[facility] LABIA [id number] [place] [address] [place] Magnesium [Moles/Vol] 0.52 mmol/L Normal 0.45-0.60 [facility] Comment on above: Order Comment: Speci men Type: ARTERIAL BLOOD SPECIMENOrdering Facility: [facility] Address: [address] [place] [address] Performed By: #### A LLMG ####[facility] LABIA [id number] [place] [address] [place] Methemoglobin (Bld) [Mass fraction] 0.8 % Normal 0.0-1.5 [facility] Comment on above: Order Comment: Speci men Type: ARTERIAL BLOOD SPECIMENOrdering Facility: [facility] Address: [address] [place] [address] Performed By: #### A LLMG ####[facility] LABCLIA [id number] [place] [address] [place] Oxygen (Bld) [Partial pressure] 116 mm Hg High 85-95 [facility] Comment on above: Order Comment: Speci men Type: ARTERIAL BLOOD SPECIMENOrdering Facility: [facility] Address: [address] [place] [address] Performed By: #### A LLMG ####[facility] LABCLIA [id number] [place] [address] [place] Oxygen adjusted to patient's actual temperature (Bld) [Partial pressure] 116 mmHg High 85-95 [facility] Comment on above: Order Comment: Speci men Type: ARTERIAL BLOOD SPECIMENOrdering Facility: [facility] Address: [address] [place] [address] Performed By: #### A LLMG ####[facility] LABCLIA [id number] [place] [address] [place] Oxyhemoglobin (BldA) [Mass fraction] 97 % Normal 95-98 [facility] Comment on above: Order Comment: Speci men Type: ARTERIAL BLOOD SPECIMENOrdering Facility: [facility] Address: [address] [place] [address] Performed By: #### A LLMG ####[facility] LABIA [id number] [place] [address] [place] pH (Bld) 7.43 [pH] Normal 7.35-7.45 [facility] Comment on above: Order Comment: Speci men Type: ARTERIAL BLOOD SPECIMENOrdering Facility: [facility] Address: [address] [place] [address] Performed By: #### A LLMG ####[facility] LABCLIA [id number] [place] [address] [place] pH adjusted to patient's actual temperature (Bld) 7.43 Normal 7.35-7.45 [facility] Comment on above: Order Comment: Speci men Type: ARTERIAL BLOOD SPECIMENOrdering Facility: [facility] Address: [address] [place] [address] Performed By: #### A LLMG ####[facility] LABCLIA [id number] [place] [address] [place] Potassium [Moles/Vol] 4.1 mmol/L Normal 3.5-5.0 [facility] Comment on above: Order Comment: Speci men Type: ARTERIAL BLOOD SPECIMENOrdering Facility: [facility] Address: [address] [place] [address] Performed By: #### A LLMG ####[facility] LABCLIA [id number] [place] [address] [place] Sodium [Moles/Vol] 137 mmol/L Normal 136-144 [facility] Comment on above: Order Comment: Speci men Type: ARTERIAL BLOOD SPECIMENOrdering Facility: [facility] Address: [address] [place] [address] Performed By: #### A LLMG ####[facility] LABCLIA [id number] [place] [address] [place] BRIEF OP NOTon 08-28-2024 BRIEF OP NOT Normal [facility] Bacteria Spec Anaerobe Culto n 08-28-2024 Bacteria identified Anaer cx Nom (Unsp spec) Negative Normal [facility] Comment on above: Performed By: #### 6 35-3, 6462-6, 43963-0 ####[facility] LABCLIA [id number] [place] [address] [place] Bacteria Wnd Culton 08-28-20 24 Bacteria identified Cx Nom (Wound) CULTURE, WOUND: No growth GRAM STAIN: No organisms seen No Polymorphonuclear Leukocytes Normal [facility] Comment on above: Performed By: #### 6 35-3, 6462-6, 80131-6 ####[facility] LABCLIA [id number] [place] [address] [place] CBC W Auto Differential pane l (Bld)on 08-28-2024 Basophils (Bld) [#/Vol] 0.00 10*3/uL Normal <0.11 [facility] Comment on above: Order Comment: Speci men Type: BLOOD SPECIMENOrdering Facility: [facility] Address: [address] [place] [address] Performed By: #### 5 7021-8 ####[facility] LABCLIA [id number] [place] [address] [place] Basophils/100 WBC (Bld) 0.0 % Normal [facility] Comment on above: Order Comment: Speci men Type: BLOOD SPECIMENOrdering Facility: [facility] Address: [address] [place] [address] Performed By: #### 5 7021-8 ####[facility] LABCLIA [id number] [place] [address] [place] Differential cell count method Nom (Bld) Manual Normal [facility] Comment on above: Order Comment: Speci men Type: BLOOD SPECIMENOrdering Facility: [facility] Address: [address] [place] [address] Performed By: #### 5 7021-8 ####[facility] LABCLIA [id number] [place] [address] [place] Eosinophils (Bld) [#/Vol] 0.00 10*3/uL Normal <0.46 [facility] Comment on above: Order Comment: Speci men Type: BLOOD SPECIMENOrdering Facility: [facility] Address: [address] [place] [address] Performed By: #### 5 7021-8 ####[facility] LABCLIA [id number] [place] [address] [place] Eosinophils/100 WBC (Bld) 0.0 % Normal [facility] Comment on above: Order Comment: Speci men Type: BLOOD SPECIMENOrdering Facility: [facility] Address: [address] [place] [address] Performed By: #### 5 7021-8 ####[facility] LABCLIA [id number] [place] [address] [place] Erythrocyte distribution width (RBC) [Ratio] 12.7 % Normal 11.5-15.0 [facility] Comment on above: Order Comment: Speci men Type: BLOOD SPECIMENOrdering Facility: [facility] Address: [address] [place] [address] Performed By: #### 5 7021-8 ####[facility] LABCLIA [id number] [place] [address] [place] Hematocrit (Bld) [Volume fraction] 25.2 % Low 39.0-51.0 [facility] Comment on above: Order Comment: Speci men Type: BLOOD SPECIMENOrdering Facility: [facility] Address: [address] [place] [address] Performed By: #### 5 7021-8 ####[facility] LABCLIA [id number] [place] [address] [place] Hemoglobin (Bld) [Mass/Vol] 8.4 g/dL Low 13.0-17.0 [facility] Comment on above: Order Comment: Speci men Type: BLOOD SPECIMENOrdering Facility: [facility] Address: [address] [place] [address] Performed By: #### 5 7021-8 ####[facility] LABCLIA [id number] [place] [address] [place] Lymphocytes (Bld) [#/Vol] 0.27 10*3/uL Low 1.00-4.00 [facility] Comment on above: Order Comment: Speci men Type: BLOOD SPECIMENOrdering Facility: [facility] Address: [address] [place] [address] Performed By: #### 5 7021-8 ####[facility] LABIA [id number] [place] [address] [place] Lymphocytes/100 WBC (Bld) 1.7 % Normal [facility] Comment on above: Order Comment: Speci men Type: BLOOD SPECIMENOrdering Facility: [facility] Address: [address] [place] [address] Performed By: #### 5 7021-8 ####[facility] LABIA [id number] [place] [address] [place] MCH (RBC) [Entitic mass] 29.0 pg Normal 26.0-34.0 [facility] Comment on above: Order Comment: Speci men Type: BLOOD SPECIMENOrdering Facility: [facility] Address: [address] [place] [address] Performed By: #### 5 7021-8 ####[facility] LABIA [id number] [place] [address] [place] MCHC (RBC) [Mass/Vol] 33.3 g/dL Normal 30.5-36.0 [facility] Comment on above: Order Comment: Speci men Type: BLOOD SPECIMENOrdering Facility: [facility] Address: [address] [place] [address] Performed By: #### 5 7021-8 ####[facility] LABIA [id number] [place] [address] [place] MCV (RBC) [Entitic vol] 86.9 fL Normal 80.0-100.0 [facility] Comment on above: Order Comment: Speci men Type: BLOOD SPECIMENOrdering Facility: [facility] Address: [address] [place] [address] Performed By: #### 5 7021-8 ####[facility] LABCLIA [id number] [place] [address] [place] Monocytes (Bld) [#/Vol] 1.34 10*3/uL High <0.87 [facility] Comment on above: Order Comment: Speci men Type: BLOOD SPECIMENOrdering Facility: [facility] Address: [address] [place] [address] Performed By: #### 5 7021-8 ####[facility] LABCLIA [id number] [place] [address] [place] Monocytes/100 WBC (Bld) 8.5 % Normal [facility] Comment on above: Order Comment: Speci men Type: BLOOD SPECIMENOrdering Facility: [facility] Address: [address] [place] [address] Performed By: #### 5 7021-8 ####[facility] LABCLIA [id number] [place] [address] [place] Neutrophils (Bld) [#/Vol] 14.14 10*3/uL High 1.45-7.50 [facility] Comment on above: Order Comment: Speci men Type: BLOOD SPECIMENOrdering Facility: [facility] Address: [address] [place] [address] Performed By: #### 5 7021-8 ####[facility] LABCLIA [id number] [place] [address] [place] Neutrophils/100 WBC (Bld) 89.8 % Normal [facility] Comment on above: Order Comment: Speci men Type: BLOOD SPECIMENOrdering Facility: [facility] Address: [address] [place] [address] Performed By: #### 5 7021-8 ####[facility] LABCLIA [id number] [place] [address] [place] Nucleated RBC (Bld) [#/Vol] 10*3/uL Normal <0.01 [facility] Comment on above: Order Comment: Speci men Type: BLOOD SPECIMENOrdering Facility: [facility] Address: [address] [place] [address] Performed By: #### 5 7021-8 ####[facility] LABCLIA [id number] [place] [address] [place] Nucleated RBC/100 WBC (Bld) [Ratio] 0.0 /100 WBC Normal [facility] Comment on above: Order Comment: Speci men Type: BLOOD SPECIMENOrdering Facility: [facility] Address: [address] [place] [address] Performed By: #### 5 7021-8 ####[facility] LABCLIA [id number] [place] [address] [place] Platelet mean volume (Bld) [Entitic vol] 9.7 fL Normal 9.0-12.7 [facility] Comment on above: Order Comment: Speci men Type: BLOOD SPECIMENOrdering Facility: [facility] Address: [address] [place] [address] Performed By: #### 5 7021-8 ####[facility] LABIA [id number] [place] [address] [place] Platelets (Bld) [#/Vol] 218 10*3/uL Normal 150-400 [facility] Comment on above: Order Comment: Speci men Type: BLOOD SPECIMENOrdering Facility: [facility] Address: [address] [place] [address] Performed By: #### 5 7021-8 ####[facility] LABCLIA [id number] [place] [address] [place] Platelets Estimate (Bld) [#/Vol] Adequate Normal [facility] Comment on above: Order Comment: Speci men Type: BLOOD SPECIMENOrdering Facility: [facility] Address: [address] [place] [address] Performed By: #### 5 7021-8 ####[facility] LABCLIA [id number] [place] [address] [place] Polychromasia LM Ql (Bld) Slight Normal [facility] Comment on above: Order Comment: Speci men Type: BLOOD SPECIMENOrdering Facility: [facility] Address: [address] [place] [address] Performed By: #### 5 7021-8 ####[facility] LABCLIA [id number] [place] [address] [place] RBC (Bld) [#/Vol] 2.90 10*6/uL Low 4.20-6.00 [facility] Comment on above: Order Comment: Speci men Type: BLOOD SPECIMENOrdering Facility: [facility] Address: [address] [place] [address] Performed By: #### 5 7021-8 ####[facility] LABCLIA [id number] [place] [address] [place] RED CELL MORPH Reviewed: unremarkable Normal [facility] Comment on above: Order Comment: Speci men Type: BLOOD SPECIMENOrdering Facility: [facility] Address: [address] [place] [address] Performed By: #### 5 7021-8 ####[facility] LABCLIA [id number] [place] [address] [place] WBC (Bld) [#/Vol] 15.75 10*3/uL High 3.70-11.[address] [facility] Comment on above: Order Comment: Speci men Type: BLOOD SPECIMENOrdering Facility: [facility] Address: [address] [place] [address] Performed By: #### 5 7021-8 ####[facility] LABCLIA [id number] [place] [address] [place] Comprehensive metabolic 2000 panelon 08-28-2024 Albumin [Mass/Vol] 4.2 g/dL Normal 3.9-4.9 [facility] Comment on above: Order Comment: Speci men Type: BLOOD SPECIMENOrdering Facility: [facility] Address: [address] [place] [address] Performed By: #### 1 9123-9, 2777-1, 3040-3, 32446-3 ####[facility] LABCLIA [id number] [place] [address] [place] ALP [Catalytic activity/Vol] 56 U/L Normal 38-113 [facility] Comment on above: Order Comment: Speci men Type: BLOOD SPECIMENOrdering Facility: [facility] Address: [address] [place] [address] Performed By: #### 1 9123-9, 2777-1, 3040-3, 72418-9 ####[facility] LABCLIA [id number] [place] [address] [place] ALT [Catalytic activity/Vol] 113 U/L High 10-54 [facility] Comment on above: Order Comment: Speci men Type: BLOOD SPECIMENOrdering Facility: [facility] Address: [address] [place] [address] Performed By: #### 1 9123-9, 2777-1, 3040-3, 16913-2 ####[facility] LABCLIA [id number] [place] [address] [place] Anion gap [Moles/Vol] 13 mmol/L Normal 8-15 [facility] Comment on above: Order Comment: Speci men Type: BLOOD SPECIMENOrdering Facility: [facility] Address: [address] [place] [address] Performed By: #### 1 9123-9, 2777-1, 3040-3, 74596-8 ####[facility] LABCLIA [id number] [place] [id number] [place] AST [Catalytic activity/Vol] 123 U/L High 14-40 [facility] Comment on above: Order Comment: Speci men Type: BLOOD SPECIMENOrdering Facility: [facility] Address: [address] [place] [address] Performed By: #### 1 9123-9, 2777-1, 3040-3, 39620-5 ####[facility] LABCLIA [id number] [place] [address] [place] Bilirubin [Mass/Vol] 1.0 mg/dL Normal 0.2-1.[address] [facility] Comment on above: Order Comment: Speci men Type: BLOOD SPECIMENOrdering Facility: [facility] Address: [address] [place] [address] Performed By: #### 1 9123-9, 2777-1, 3040-3, 65140-0 ####[facility] LABCLIA [id number] [place] [address] [place] Calcium [Mass/Vol] 8.0 mg/dL Low 8.5-10.2 [facility] Comment on above: Order Comment: Speci men Type: BLOOD SPECIMENOrdering Facility: [facility] Address: [address] [place] [address] Performed By: #### 1 9123-9, 2777-1, 3040-3, 85712-5 ####[facility] LABCLIA [id number] [place] [address] [place] Chloride [Moles/Vol] 103 mmol/L Normal 98-[address] [facility] Comment on above: Order Comment: Speci men Type: BLOOD SPECIMENOrdering Facility: [facility] Address: [address] [place] [address] Performed By: #### 1 9123-9, 2777-1, 3040-3, 76879-3 ####[facility] LABCLIA [id number] [place] [address] [place] CO2 [Moles/Vol] 23 mmol/L Normal 22-30 [facility] Comment on above: Order Comment: Theo narvaez Type: BLOOD SPECIMENOrdering Facility: [facility] Address: [address] [place] [address] Performed By: #### 1 9123-9, 2777-1, 3040-3, 85158-3 ####[facility] LABCLIA [id number] [place] [address] [place] Creatinine [Mass/Vol] 0.98 mg/dL Normal 0.73-1.22 [facility] Comment on above: Order Comment: Theo narvaez Type: BLOOD SPECIMENOrdering Facility: [facility] Address: [address] [place] [address] Performed By: #### 1 9123-9, 2777-1, 3039-3, 44424-4 ####[facility] LABIA [id number] [place] [address] [place] Creatinine and Glomerular filtration rate.predicted panel (S/P/Bld) 92 mL/min/1.73m??? Normal >=60 [facility] Comment on above: Order Comment: Theo narvaez Type: BLOOD SPECIMENOrdering Facility: [facility] Address: [address] [place] [address] Result Comment: Marisa mated Glomerular Filtration Rate [...] GFR. Performed By: #### 1 9123-9, 2777-1, 3040-3, 05765-5 ####[facility] LABCLIA [id number] [place] [id number] [place] Glucose [Mass/Vol] 256 mg/dL High 74-99 [facility] Comment on above: Order Comment: Speci men Type: BLOOD SPECIMENOrdering Facility: [facility] Address: [address] [place] [address] Result Comment: The [place] [employer] (ADA) provides guidance for cutoff [...] Standards of Medical Care in Diabetes 2016, [place] [employer]. Diabetes Care. 2016.39(Suppl 1). Performed By: #### 1 9123-9, 2777-1, 3040-3, 59317-0 ####[facility] LABCLIA [id number] [place] [address] [place] Potassium [Moles/Vol] 4.6 mmol/L Normal 3.7-5.1 [facility] Comment on above: Order Comment: Yasmini brice Type: BLOOD SPECIMENOrdering Facility: [facility] Address: [address] [place] [address] Performed By: #### 1 9123-9, 2777-1, 0-3, 18007-4 ####[facility] LABCLIA [id number] [place] [address] [place] Protein [Mass/Vol] 5.4 g/dL Low 6.3-8.0 [facility] Comment on above: Order Comment: Yasmini men Type: BLOOD SPECIMENOrdering Facility: [facility] Address: [address] [place] [address] Performed By: #### 1 9123-9, 2777-1, 3040-3, 87463-0 ####[facility] LABCLIA [id number] [place] [id number] [place] Sodium [Moles/Vol] 139 mmol/L Normal 136-144 [facility] Comment on above: Order Comment: Speci men Type: BLOOD SPECIMENOrdering Facility: [facility] Address: [address] [place] [address] Performed By: #### 1 9123-9, 2777-1, 3040-3, 88585-3 ####[facility] LABCLIA [id number] [place] [address] [place] Urea nitrogen [Mass/Vol] 17 mg/dL Normal 9-24 [facility] Comment on above: Order Comment: Speci men Type: BLOOD SPECIMENOrdering Facility: [facility] Address: [address] [place] [address] Performed By: #### 1 9123-9, 2777-1, 3039-3, 80247-2 ####[facility] LABCLIA [id number] [place] [address] [place] Lipase SerPl-cCncon 08-28-20 24 Lipase [Catalytic activity/Vol] 19 U/L Normal 16-61 [facility] Comment on above: Order Comment: Speci men Type: BLOOD SPECIMENOrdering Facility: [facility] Address: [address] [place] [address] Performed By: #### 1 9123-9, 2777-1, 304-3, 10143-5 ####[facility] LABIA [id number] [place] [id number] [place] Magnesium SerPl-mCncon 08-28 Magnesium [Mass/Vol] 1.7 mg/dL Normal 1.7-2.[address] [facility] Comment on above: Order Comment: Speci men Type: BLOOD SPECIMENOrdering Facility: [facility] Address: [address] [place] [address] Performed By: #### 1 9123-9, 2777-1, 3040-3, 17704-7 ####[facility] LABCLIA [id number] [address] [place] Microorganism Spec Culton Microorganism identified Cx Nom (Unsp spec) CULTURE, FUNGAL: No Fungus isolated after 28 days FUNGAL SMEAR: No fungus seen Normal [facility] Comment on above: Performed By: #### 6 35-3, 6462-6, 57937-6 ####[facility] [id number] [address] OF [facility] OPERATIVE NOon 08-28-2024 OPERATIVE NO Normal [facility] PT panel Coag (PPP)on 2023 INR Coag (PPP) [Relative time] 1.1 {INR} Normal 0.9-1.3 [facility] Comment on above: Order Comment: Speci men Type: BLOOD SPECIMENOrdering Facility: [facility] Address: [address] [place] [address] Result Comment: Carmita min K Antagonist (VKA) Therapeutic Range: INR 2 to 3 (Target INR of 2.5)Note: For patients treated with VKA drugs, such as warfarin, the [place] [employer] 2012 Guideline recommends [...] 2.5 to 3.5 (target INR of 3).Daren GH, et al. Chest 2012, 141:7S-47SNishimura RA, et al. JAC 2017, 70: 252-289 Performed By: #### 3 4528-0, 58428-3 ####[facility] LABCLIA [id number] [place] [id number] [place] PT Coag (PPP) [Time] 11.9 s Normal 9.7-13.[address] [facility] Comment on above: Order Comment: Speci men Type: BLOOD SPECIMENOrdering Facility: [facility] Address: [address] [place] [address] Performed By: #### 3 4528-0, 24178-9 ####[facility] LABCLIA [id number] [place] [address] [place] Phosphate SerPl-mCncon 08-28 Phosphate [Mass/Vol] 4.1 mg/dL Normal 2.7-4.[address] [facility] Comment on above: Order Comment: Speci men Type: BLOOD SPECIMENOrdering Facility: [facility] Address: [address] [place] [address] Performed By: #### 1 9123-9, 2777-1, 3040-3, 10125-5 ####[facility] LABCLIA [id number] [place] [address] [place] STAPHYLOCOCCUS AUREUS AND MR SA SCREEN, PCR, NASALon 08-28-2024 S. aureus and MRSA panel NAZ+probe (Nose) Not detected Normal Not Detected [facility] Comment on above: Order Comment: Speci men Type: SWABOrdering Facility: [facility] Address: [address] [place] [address] Performed By: #### S APCR ####[facility] LABIA [id number] [place] [address] [place] SURGICAL PATHOLOGYon 024 CASE REPORT Normal [facility] Comment on above: Order Comment: Speci men Type: TISSUE SPECIMENOrdering Facility: [facility] Address: [address] [place] [address] Result Comment: Surg ical Pathology Report Case: [id number] Provider: Jesus Jacobson MD Collected: 08/28/2024 05:31 PMOrdering Location: Admitting Received: 08/29/2024 03:53 PMPathologist: Lilia Hendricks MDSpecimens: A) - Lymph Node (Specify Site in Comments), retro portal lymph node B) - Pancreaticoduodenectomy (Whipple Procedure) Performed By: #### S ####[facility] [id number] [address] CLINICAL HISTORY Normal [facility] Comment on above: Order Comment: Speci men Type: TISSUE SPECIMENOrdering Facility: [facility] Address: [address] [place] [address] Result Comment: Pre- op diagnosis:IPMN (intraductal papillary mucinous neoplasm) [D49.0] Performed By: #### S ####[facility] [id number] [address] DIAGNOSIS COMMENT Normal [facility] Comment on above: Order Comment: Speci men Type: TISSUE SPECIMENOrdering Facility: [facility] Address: [address] [place] [address] Result Comment: -Int raductal papillary mucinous neoplasm (3.9 cm), intestinal type, involving the distal main pancreatic duct and and branch ducts, with focal high-grade dysplasia-No invasive tumor identified in the entirely submitted lesion-Background pancreas with chronic pancreatitis and lobulocentric atrophy-The margins are negative for tumor-Spleen with mild reactive changes-25 benign lymph nodes Performed By: #### S ####[facility] [id number] [address] FINAL DIAGNOSIS Normal [facility] Comment on above: Order Comment: Speci men Type: TISSUE SPECIMENOrdering Facility: [facility] Address: [address] [place] [address] Result Comment: A. R etroportal lymph node, resection-1 benign lymph nodeB. Pancreas, duodenum, bile duct, pancreatoduodenectomy-Intraductal papillary mucinous neoplasm (3.9 cm), intestinal type, with focal high-grade dysplasia-The margins are negative for tumor-25 benign lymph nodes-See comment Performed By: #### S ####[facility] LABCLIA [id number] [address] STATES OF [facility] FINAL PERFORMING LAB Normal [facility] Comment on above: Order Comment: Speci men Type: TISSUE SPECIMENOrdering Facility: [facility] Address: [address] [place] [address] Result Comment: Diag nostic interpretation performed at [facility], [address] [place] [address] CLIA# [id number] Director: Yakov Gurrola M.D. Performed By: #### S ####[facility] LABCLIA [id number] [address] GROSS DESCRIPTION Normal [facility] Comment on above: Order Comment: Speci men Type: TISSUE SPECIMENOrdering Facility: [facility] Address: [address] [place] [address] Result Comment: A. L ymph Node (Specify Site in Comments)Received in formalin designated retroportal lymph node is a clemente-purple lymph node with attached yellow fatty tissue measuring 2.8 x 0.8 x 0.4 cm. The lymph node is bisected and totally submitted in 1 cassette.Gross examination performed at [facility], [address] [place] [address] CLIA# [id number] August 30, 2024 5:11 PMB. Pancreaticoduodenectomy (Whipple [...] follows: - Common bile duct, outer surface: Sunflower - Anterior outer surface of pancreas: Red [...] red and soft. Malpighian corpuscles are not prominent.Installation Drafter sections are submitted as follows:B1: Common bile duct margin, en faceB2: Proximal and distal intestinal resection margins, perpendicular, public service representative sections - Lesion submitted from distal to proximal in cassettes B3-M50T3-X3: Lesion and anterior peripancreatic soft tissue, totally submittedB7-B10: Lesion and posterior peripancreatic soft tissue, totally wxskmsvisX88: Lesion, remaining, totally lqodxkzxgI50: Dilated main pancreatic duct at the body, public service representative yiutyltK65-T40: Uncinate process, perpendicular, totally ucwuxkjgwH50: Dilated main pancreatic duct at the head,, bile duct, and duodenum, public service representative nmbgkcgS79-J05: Vascular groove, perpendicular, totally qotohwyqjA41: Spleen, public service representative qgtooqfjQ04-J81: 1 possible lymph node per cassette, bisected and totally xmnhyhutdI77: 2 possible lymph nodes, totally llqtnerygB89: 5 possible lymph nodes, totally nnuxxidfmB79-A82: Peripancreatic adipose tissue for microscopic lymph node identification, totally submittedGross examination performed at [facility], [address] [place] [address] [id number] 09/01/24 11:46 AM Performed By: #### S ####[facility] LABCLIA [id number] [place] [address] [place] XR CHEST 1V FRONTAL PORTon 1 10-28-2023 XR CHEST 1V FRONTAL PORT Normal [facility] aPTT PPPon 08-28-2024 aPTT Coag (PPP) [Time] 21.7 s Low 23.0-32.4 [facility] Comment on above: Order Comment: Speci men Type: BLOOD SPECIMENOrdering Facility: [facility] Address: [address] [place] [address] Performed By: #### 3 4528-0, 62539-8 ####[facility] LABIA [id number] [place] [address] [place] CBC W Auto Differential pane l (Bld)on 08-22-2024 Basophils (Bld) [#/Vol] 0.04 10*3/uL Normal <0.11 [facility] Comment on above: Order Comment: Speci men Type: BLOOD SPECIMENOrdering Facility: [facility] Address: [address] [place] [address] Performed By: #### 5 7021-8 ####[facility] LABIA [id number] [place] [address] [place] Basophils/100 WBC (Bld) 0.6 % Normal [facility] Comment on above: Order Comment: Speci men Type: BLOOD SPECIMENOrdering Facility: [facility] Address: [address] [place] [address] Performed By: #### 5 7021-8 ####[facility] LABCLIA [id number] [place] [address] [place] Differential cell count method Nom (Bld) Auto Normal [facility] Comment on above: Order Comment: Speci men Type: BLOOD SPECIMENOrdering Facility: [facility] Address: [address] [place] [address] Performed By: #### 5 7021-8 ####[facility] LABIA [id number] [place] [address] [place] Eosinophils (Bld) [#/Vol] 0.04 10*3/uL Normal <0.46 [facility] Comment on above: Order Comment: Speci men Type: BLOOD SPECIMENOrdering Facility: [facility] Address: [address] [place] [address] Performed By: #### 5 7021-8 ####[facility] LABIA [id number] [place] [address] [place] Eosinophils/100 WBC (Bld) 0.6 % Normal [facility] Comment on above: Order Comment: Speci men Type: BLOOD SPECIMENOrdering Facility: [facility] Address: [address] [place] [address] Performed By: #### 5 7021-8 ####[facility] LABIA [id number] [place] [address] [place] Erythrocyte distribution width (RBC) [Ratio] 12.5 % Normal 11.5-15.0 [facility] Comment on above: Order Comment: Speci men Type: BLOOD SPECIMENOrdering Facility: [facility] Address: [address] [place] [address] Performed By: #### 5 7021-8 ####[facility] LABCLIA [id number] [place] [address] [place] Hematocrit (Bld) [Volume fraction] 42.3 % Normal 39.0-51.0 [facility] Comment on above: Order Comment: Speci men Type: BLOOD SPECIMENOrdering Facility: [facility] Address: [address] [place] [address] Performed By: #### 5 7021-8 ####[facility] LABCLIA [id number] [place] [address] [place] Hemoglobin (Bld) [Mass/Vol] 13.6 g/dL Normal 13.0-17.0 [facility] Comment on above: Order Comment: Speci men Type: BLOOD SPECIMENOrdering Facility: [facility] Address: [address] [place] [address] Performed By: #### 5 7021-8 ####[facility] LABCLIA [id number] [place] [address] [place] Immature granulocytes (Bld) [#/Vol] 0.03 10*3/uL Normal <0.10 [facility] Comment on above: Order Comment: Speci men Type: BLOOD SPECIMENOrdering Facility: [facility] Address: [address] [place] [address] Performed By: #### 5 7021-8 ####[facility] LABCLIA [id number] [place] [address] [place] Immature granulocytes/100 WBC (Bld) 0.5 % Normal [facility] Comment on above: Order Comment: Speci men Type: BLOOD SPECIMENOrdering Facility: [facility] Address: [address] [place] [address] Performed By: #### 5 7021-8 ####[facility] LABCLIA [id number] [place] [address] [place] Lymphocytes (Bld) [#/Vol] 1.67 10*3/uL Normal 1.00-4.00 [facility] Comment on above: Order Comment: Speci men Type: BLOOD SPECIMENOrdering Facility: [facility] Address: [address] [place] [address] Performed By: #### 5 7021-8 ####[facility] LABCLIA [id number] [place] [address] [place] Lymphocytes/100 WBC (Bld) 25.6 % Normal [facility] Comment on above: Order Comment: Speci men Type: BLOOD SPECIMENOrdering Facility: [facility] Address: [address] [place] [address] Performed By: #### 5 7021-8 ####[facility] LABCLIA [id number] [place] [address] [place] MCH (RBC) [Entitic mass] 28.6 pg Normal 26.0-34.0 [facility] Comment on above: Order Comment: Speci men Type: BLOOD SPECIMENOrdering Facility: [facility] Address: [address] [place] [address] Performed By: #### 5 7021-8 ####[facility] LABCLIA [id number] [place] [address] [place] MCHC (RBC) [Mass/Vol] 32.2 g/dL Normal 30.5-36.0 [facility] Comment on above: Order Comment: Speci men Type: BLOOD SPECIMENOrdering Facility: [facility] Address: [address] [place] [address] Performed By: #### 5 7021-8 ####[facility] LABIA [id number] [place] [address] [place] MCV (RBC) [Entitic vol] 89.1 fL Normal 80.0-100.0 [facility] Comment on above: Order Comment: Speci men Type: BLOOD SPECIMENOrdering Facility: [facility] Address: [address] [place] [address] Performed By: #### 5 7021-8 ####[facility] LABCLIA [id number] [place] [address] [place] Monocytes (Bld) [#/Vol] 0.49 10*3/uL Normal <0.87 [facility] Comment on above: Order Comment: Speci men Type: BLOOD SPECIMENOrdering Facility: [facility] Address: [address] [place] [address] Performed By: #### 5 7021-8 ####[facility] LABCLIA [id number] [place] [address] [place] Monocytes/100 WBC (Bld) 7.5 % Normal [facility] Comment on above: Order Comment: Speci men Type: BLOOD SPECIMENOrdering Facility: [facility] Address: [address] [place] [address] Performed By: #### 5 7021-8 ####[facility] LABCLIA [id number] [place] [address] [place] Neutrophils (Bld) [#/Vol] 4.25 10*3/uL Normal 1.45-7.50 [facility] Comment on above: Order Comment: Speci men Type: BLOOD SPECIMENOrdering Facility: [facility] Address: [address] [place] [address] Performed By: #### 5 7021-8 ####[facility] LABCLIA [id number] [place] [address] [place] Neutrophils/100 WBC (Bld) 65.2 % Normal [facility] Comment on above: Order Comment: Speci men Type: BLOOD SPECIMENOrdering Facility: [facility] Address: [address] [place] [address] Performed By: #### 5 7021-8 ####[facility] LABCLIA [id number] [place] [address] [place] Nucleated RBC (Bld) [#/Vol] 10*3/uL Normal <0.01 [facility] Comment on above: Order Comment: Speci men Type: BLOOD SPECIMENOrdering Facility: [facility] Address: [address] [place] [address] Performed By: #### 5 7021-8 ####[facility] LABCLIA [id number] [place] [address] [place] Nucleated RBC/100 WBC (Bld) [Ratio] 0.0 /100 WBC Normal [facility] Comment on above: Order Comment: Speci men Type: BLOOD SPECIMENOrdering Facility: [facility] Address: [address] [place] [address] Performed By: #### 5 7021-8 ####[facility] LABIA [id number] [place] [address] [place] Platelet mean volume (Bld) [Entitic vol] 9.3 fL Normal 9.0-12.7 [facility] Comment on above: Order Comment: Speci men Type: BLOOD SPECIMENOrdering Facility: [facility] Address: [address] [place] [address] Performed By: #### 5 7021-8 ####[facility] LABIA [id number] [place] [address] [place] Platelets (Bld) [#/Vol] 245 10*3/uL Normal 150-400 [facility] Comment on above: Order Comment: Speci men Type: BLOOD SPECIMENOrdering Facility: [facility] Address: [address] [place] [address] Performed By: #### 5 7021-8 ####[facility] LABIA [id number] [place] [address] [place] RBC (Bld) [#/Vol] 4.75 10*6/uL Normal 4.20-6.00 [facility] Comment on above: Order Comment: Speci men Type: BLOOD SPECIMENOrdering Facility: [facility] Address: [address] [place] [address] Performed By: #### 5 7021-8 ####[facility] LABIA [id number] [place] [address] [place] WBC (Bld) [#/Vol] 6.52 10*3/uL Normal 3.70-11.00 [facility] Comment on above: Order Comment: Speci men Type: BLOOD SPECIMENOrdering Facility: [facility] Address: [address] [place] [address] Performed By: #### 5 7021-8 ####[facility] LABCLIA [id number] [place] [address] [place] CNNURSEon 08-22-2024 CNNURSE Normal [facility] CNOVon 08-22-2024 CNOV Normal [facility] CONFIRM BLOOD TYPEon 024 ABO O Normal [facility] Comment on above: Order Comment: Speci men Type: BLOOD SPECIMENOrdering Facility: [facility] Address: [address] [place] [address] Performed By: #### C ONABO ####[facility] BLOOD BANKCLIA [id number] [place] [address] [place] Rh Nom (Bld) Positive Normal [facility] Comment on above: Order Comment: Speci men Type: BLOOD SPECIMENOrdering Facility: [facility] Address: [address] [place] [address] Performed By: #### C ONABO ####[facility] BLOOD BANKCLIA [id number] [place] [address] [place] Comprehensive metabolic 2000 panelon 08-22-2024 Albumin [Mass/Vol] 4.7 g/dL Normal 3.9-4.9 [facility] Comment on above: Order Comment: Speci men Type: BLOOD SPECIMENOrdering Facility: [facility] Address: [address] [place] [address] Performed By: #### 2 4323-8 ####[facility] LABCLIA [id number] [place] [address] [place] ALP [Catalytic activity/Vol] 108 U/L Normal 38-113 [facility] Comment on above: Order Comment: Speci men Type: BLOOD SPECIMENOrdering Facility: [facility] Address: [address] [address] Performed By: #### 2 4323-8 ####[facility] LABCLIA [id number] [place] [address] [place] ALT [Catalytic activity/Vol] 35 U/L Normal 10-54 [facility] Comment on above: Order Comment: Speci men Type: BLOOD SPECIMENOrdering Facility: [facility] Address: [address] [place] [address] Performed By: #### 2 4323-8 ####[facility] LABCLIA [id number] [place] [address] [place] Anion gap [Moles/Vol] 14 mmol/L Normal 8-15 [facility] Comment on above: Order Comment: Speci men Type: BLOOD SPECIMENOrdering Facility: [facility] Address: [address] [place] [address] Performed By: #### 2 4323-8 ####[facility] LABCLIA [id number] [place] [address] [place] AST [Catalytic activity/Vol] 31 U/L Normal 14-40 [facility] Comment on above: Order Comment: Speci men Type: BLOOD SPECIMENOrdering Facility: [facility] Address: [address] [place] [address] Performed By: #### 2 4323-8 ####[facility] LABCLIA [id number] [place] [address] [place] Bilirubin [Mass/Vol] 0.2 mg/dL Normal 0.2-1.[address] [facility] Comment on above: Order Comment: Speci men Type: BLOOD SPECIMENOrdering Facility: [facility] Address: [address] [place], [place] [address] Performed By: #### 2 4323-8 ####[facility] LABCLIA [id number] [place] [address] [place] Calcium [Mass/Vol] 9.9 mg/dL Normal 8.5-10.2 [facility] Comment on above: Order Comment: Speci men Type: BLOOD SPECIMENOrdering Facility: [facility] Address: [address] [place] [address] Performed By: #### 2 4323-8 ####[facility] LABCLIA [id number] [place] [address] [place] Chloride [Moles/Vol] 103 mmol/L Normal 98-[address] [facility] Comment on above: Order Comment: Speci men Type: BLOOD SPECIMENOrdering Facility: [facility] Address: [address] [place] [address] Performed By: #### 2 4323-8 ####[facility] LABCLIA [id number] [place] [address] [place] CO2 [Moles/Vol] 26 mmol/L Normal 22-30 [facility] Comment on above: Order Comment: Speci men Type: BLOOD SPECIMENOrdering Facility: [facility] Address: [address] [place] [address] Performed By: #### 2 4323-8 ####[facility] LABCLIA [id number] [place] [address] [place] Creatinine [Mass/Vol] 1.10 mg/dL Normal 0.73-1.22 [facility] Comment on above: Order Comment: Speci men Type: BLOOD SPECIMENOrdering Facility: [facility] Address: [address] [place] [address] Performed By: #### 2 4323-8 ####[facility] LABCLIA [id number] [place] [address] [place] Creatinine and Glomerular filtration rate.predicted panel (S/P/Bld) 80 mL/min/1.73m??? Normal >=60 [facility] Comment on above: Order Comment: Speci men Type: BLOOD SPECIMENOrdering Facility: [facility] Address: [address] [place] [address] Result Comment: Marisa mated Glomerular Filtration Rate [...] actual GFR. Performed By: #### 2 4323-8 ####[facility] LABIA [id number] [place] [address] [place] Glucose [Mass/Vol] 164 mg/dL High 74-99 [facility] Comment on above: Order Comment: Theo narvaez Type: BLOOD SPECIMENOrdering Facility: [facility] Address: [address] [place] [address] Result Comment: The [place] [employer] (ADA) provides guidance for cutoff [...] Standards of Medical Care in Diabetes 2016, [place] [employer]. Diabetes Care. 2016.39(Suppl 1). Performed By: #### 2 4323-8 ####[facility] LABIA [id number] [place] [address] [place] Potassium [Moles/Vol] 4.1 mmol/L Normal 3.7-5.1 [facility] Comment on above: Order Comment: Theo narvaez Type: BLOOD SPECIMENOrdering Facility: [facility] Address: [address] [place] [address] Performed By: #### 2 4323-8 ####[facility] LABCLIA [id number] [place] [address] [place] Protein [Mass/Vol] 7.2 g/dL Normal 6.3-8.0 [facility] Comment on above: Order Comment: Speci men Type: BLOOD SPECIMENOrdering Facility: [facility] Address: [address] [place] [address] Performed By: #### 2 4323-8 ####[facility] LABCLIA [id number] [place] [address] [place] Sodium [Moles/Vol] 143 mmol/L Normal 136-144 [facility] Comment on above: Order Comment: Speci men Type: BLOOD SPECIMENOrdering Facility: [facility] Address: [address] [place] [address] Performed By: #### 2 4323-8 ####[facility] LABCLIA [id number] [place] [address] [place] Urea nitrogen [Mass/Vol] 15 mg/dL Normal 9-24 [facility] Comment on above: Order Comment: Speci men Type: BLOOD SPECIMENOrdering Facility: [facility] Address: [address] [place] [address] Performed By: #### 2 4323-8 ####[facility] LABCLIA [id number] [place] [address] [place] ECG COMPLETEon 08-22-2024 ECG COMPLETE Normal [facility] HISTORY PHYSICALon HISTORY PHYSICAL Normal [facility] TYPE AND SCREEN,30 DAYon ABO O Normal [facility] Comment on above: Order Comment: Speci men Type: BLOOD SPECIMENOrdering Facility: [facility] Address: [address] [place] [address] Performed By: #### T SCR30 ####[facility] BLOOD BANKCLIA [id number] [address] [place] Rh Nom (Bld) Positive Normal [facility] Comment on above: Order Comment: Speci men Type: BLOOD SPECIMENOrdering Facility: [facility] Address: [address] [place] [address] Performed By: #### T SCR30 ####CC [facility] BLOOD BANKCLIA [id number] [place] [address] [place] XR CHEST 2V FRONTAL/LATon XR CHEST 2V FRONTAL/LAT Normal [facility] XR Chest PA and Lateralon IMPRESSION: No acute disease identified in the lungs or mediastinum. Little interval change since 01/31/2024. Fuel Testing Technician: PAPITO Transcribe Date/Time: Aug 22 2024 4:29P Dictated by : GEE LITTLEJOHN MD This examination was interpreted and the report reviewed and electronically signed by: GEE LITTLEJOHN MD on Aug 22 2024 4:32PM [facility] DIVISION OF RADIOLOGY * * *Final Report* [...] to the sternum. DIVISION OF RADIOLOGY Provider, [facility] Stefanie Ortiz - 08/22/2024 * * *Final Report* * [...] or mediastinum. Little interval change since 01/31/2024. Fuel Testing Technician: PSCYvrose Transcribe Date/Time: Aug 22 2024 4:29P Dictated by : GEE LITTLEJOHN MD This examination was interpreted and the report reviewed and electronically signed by: GEE LITTLEJOHN MD on Aug 22 2024 4:32PM EST [facility] Radiology Study observation (narrative) [facility] XR Chest PA and LateralOrder ed By: Ccf Provider on 08-22-[address] [facility] [address] CHEST WO CONTRASTon 08-11 CT [...] Shayy Granda MD 08/11/24 Final result Normal [facility] 08-08-2024 CNPN Normal [facility] XR RIBS LEFT INCLUDE CHEST ( [...] Lauri Billy MD 08/08/24 Final result Normal [facility] XR Ribs - left Views and [facility] 08-08-2024 No acute abnormaliti es seen in the chest or left ribs [facility] RIS CONSOLIDATED EXAMINATION: 5 XRAY VIEWS OF THE LEFT RIBS WITH FRONTAL XRAY VIEW OF THE CHEST 08/08/2024 1:42 pm COMPARISON: 03/17/2024 HISTORY: ORDERING SYSTEM PROVIDED HISTORY: fall/injury TECHNOLOGIST PROVIDED HISTORY: fall/injury FINDINGS: Chest: Heart size stable. No acute airspace disease. No pneumothorax. No pleural effusion. No pulmonary vascular congestion or edema. Left ribs: No fracture. No destructive bony abnormality. PN RIS CONSOLIDATED Lauri Billy MD - 08/08/2024 [...] seen in the chest or left ribs [facility] Radiology Study observation (narrative) [facility] XR Ribs - left Views and [place] st PAOrdered By: Lauri Billy on 08-08-2024 [facility] [employer] Work Phone: CBC with Auto Differentialon 08-05-2024 Basophils (Bld) [#/Vol] 0.04 10*3/uL [facility] Basophils/100 WBC (Bld) 1 % 0 - 2 % [facility] Eosinophils (Bld) [#/Vol] 0.07 10*3/uL [facility] Eosinophils/100 WBC (Bld) 1 % 1 - 4 % [facility] Erythrocyte distribution width (RBC) [Ratio] 12.4 % 11.8 - 14.4 % [facility] Hematocrit (Bld) [Volume fraction] 41.8 % 40.7 - 50.3 % [facility] Hemoglobin (Bld) [Mass/Vol] 14.1 g/dL 13.0 - 17.0 g/dL [facility] Immature granulocytes (Bld) [#/Vol] 0.03 10*3/uL [facility] Immature granulocytes/100 WBC (Bld) 0 % 0 [facility] Lymphocytes/100 WBC (Bld) 30 % 24 - 43 % [facility] Lymphocytes/100 WBC (Bld) 2.68 % [facility] MCH (RBC) [Entitic mass] 28.8 pg 25.2 - 33.5 pg [facility] MCHC (RBC) [Mass/Vol] 33.7 g/dL 28.4 - 34.8 g/dL [facility] MCV (RBC) [Entitic vol] 85.5 fL 82.6 - 102.9 fL [facility] Monocytes/100 WBC (Bld) 8 % 3 - 12 % [facility] Monocytes/100 WBC (Bld) 0.67 % [facility] Neutrophils/100 WBC (Bld) 60 % 36 - 65 % [facility] Nucleated RBC/100 WBC (Bld) [Ratio] 0.0 % 0.0 per 100 WBC [facility] Platelet mean volume (Bld) [Entitic vol] 9.1 fL 8.1 - 13.5 fL [facility] Platelets (Bld) [#/Vol] 283 10*3/uL [facility] RBC (Bld) [#/Vol] 4.89 10*6/uL 4.21 - 5.7 7 m/uL [facility] Segmented neutrophils/100 WBC (Bld) 5.39 % [facility] WBC other (Bld) [#/Vol] 8.9 [facility] CBC with Diffon 08-05-2024 Abs. Basophil 0.04 k/uL Normal 0.00-0.20 [facility] Comment on above: Performed By: #### LAUREL ZHU #### [facility] [address] [place] [address] Community Facilitator: Ziggy Hilario MD Abs.Imm.Granulocyte 0.03 k/uL Normal 0.00-0.30 [facility] Comment on above: Performed By: #### KIMMIE ZHUX #### [facility] [address] [place] [address] Community Facilitator: Ziggy Hilario MD Abs.Neutrophil (Seg) 5.39 k/uL Normal 1.50-8.10 [facility] Comment on above: Performed By: #### U MICAO, UAX #### [facility] [address] [place], [place] [id number] Community Facilitator: Ziggy Hilario MD Basophils/100 WBC (Bld) 1 % Normal 0-2 [facility] Comment on above: Performed By: #### U MICAO, UAX #### [facility] [address] [place], [facility]83 Community Facilitator: Ziggy Hilario MD Eosinophils (Bld) [#/Vol] 0.07 10*3/uL Normal 0.00-0.44 [facility] Comment on above: Performed By: #### U MICAO, UAX #### [address] [place], [place] [id number] Community Facilitator: Ziggy Hilario MD Eosinophils/100 WBC (Bld) 1 % Normal 1-4 [facility] Comment on above: Performed By: #### U MICAO, UAX #### [address] [place], [facility]83 Community Facilitator: Ziggy Hilario MD Erythrocyte distribution width (RBC) [Ratio] 12.4 % Normal 11.8-14.4 [facility] Comment on above: Performed By: #### U MICAO, UAX #### [address] [place], [facility]83 Community Facilitator: Ziggy Hilario MD Hematocrit (Bld) [Volume fraction] 41.8 % Normal 40.7-50.3 [facility] Comment on above: Performed By: #### U MICAO, UAX #### [address] [place] [address] Community Facilitator: Ziggy Hilario MD Hemoglobin (Bld) [Mass/Vol] 14.1 g/dL Normal 13.0-17.0 [facility] Comment on above: Performed By: #### U MICAO, UAX #### [facility] [address] [place], [place] [address] Community Facilitator: Ziggy Hilario MD Immature granulocytes/100 WBC (Bld) 0 % Normal 0 [facility] Comment on above: Performed By: #### U MICAO, UAX #### [facility] [address] [place], [place] [id number] Community Facilitator: Ziggy Hilario MD Lymphocytes (Bld) [#/Vol] 2.68 10*3/uL Normal 1.10-3.70 [facility] Comment on above: Performed By: #### U CASSYO, UAX #### [facility] [address] [place], [place] [id number] Community Facilitator: Ziggy Hilario MD Lymphocytes/100 WBC (Bld) 30 % Normal 24-43 [facility] Comment on above: Performed By: #### U CASSYO, UAX #### [address] [place], [place] [id number] Community Facilitator: Ziggy Hilario MD MCH (RBC) [Entitic mass] 28.8 pg Normal 25.2-33.5 [facility] Comment on above: Performed By: #### U CASSYO, UAX #### [address] [place] [address] Community Facilitator: Ziggy Hilario MD MCHC (RBC) [Mass/Vol] 33.7 g/dL Normal 28.4-34.8 [facility] Comment on above: Performed By: #### U CASSYO, UAX #### [address] [place] [address] Community Facilitator: Ziggy Hilario MD MCV (RBC) [Entitic vol] 85.5 fL Normal 82.6-102.9 [facility] Comment on above: Performed By: #### U CASSYO, UAX #### [address] [place], [place] [id number] Community Facilitator: Ziggy Hilario MD Monocytes (Bld) [#/Vol] 0.67 10*3/uL Normal 0.10-1.20 [facility] Comment on above: Performed By: #### U MICAO, UAX #### [facility] [address] [place], [place] [address] Community Facilitator: Ziggy Hilario MD Monocytes/100 WBC (Bld) 8 % Normal 3-12 [facility] Comment on above: Performed By: #### U MICAO, UAX #### [facility] [address] [place], [place] [address] Community Facilitator: Ziggy Hilario MD Neutrophil (Seg) 60 % Normal 36-65 [facility] Comment on above: Performed By: #### U MICAO, UAX #### [address] [place], [facility]83 Community Facilitator: Ziggy Hilario MD NRBC Automated 0.0 per 100 WBC Normal 0.0 [facility] Comment on above: Performed By: #### U MICAO, UAX #### [address] [address] [place], [facility] Community Facilitator: Ziggy Hilario MD Platelet mean volume (Bld) [Entitic vol] 9.1 fL Normal 8.1-13.5 [facility] Comment on above: Performed By: #### U MICAO, UAX #### [facility] [address] [place], [place] [id number] Community Facilitator: Ziggy Hilario MD Platelets (Bld) [#/Vol] 283 10*3/uL Normal 138-453 [facility] Comment on above: Performed By: #### U MICAO, UAX #### [facility] [address] [place], [place] [id number] Community Facilitator: Ziggy Hilario MD RBC (Bld) [#/Vol] 4.89 10*6/uL Normal 4.21-5.77 [facility] Comment on above: Performed By: #### U MICAO, UAX #### [facility] [address] [place], [place] [id number] Community Facilitator: Ziggy Hilario MD WBC (Bld) [#/Vol] 8.9 10*3/uL Normal 3.5-11.3 [facility] Comment on above: Performed By: #### U MICAO, UAX #### [facility] [address] [place] [address] Community Facilitator: Ziggy Hilario MD CNPNon 08-05-2024 CNPN Normal [facility] Metabolic Profon 2023 Albumin [Mass/Vol] 4.5 g/dL Normal 3.5-5.2 [facility] Comment on above: Performed By: #### U MICAO, UAX #### [facility] [address] [place], [place] [id number] Community Facilitator: Ziggy Hilario MD Albumin/Glob Ratio 1.8 Normal 1.0-2.5 [facility] Comment on above: Performed By: #### U MICAO, UAX #### [facility] [address] [place], [place] [id number] Community Facilitator: Ziggy Hilario MD Alkaline Phos 100 U/L Normal 40-129 [facility] Comment on above: Performed By: #### U MICAO, UAX #### [facility] [address] [place] [address] Community Facilitator: Ziggy Hilario MD ALT [Catalytic activity/Vol] 37 U/L Normal 10-50 [facility] Comment on above: Performed By: #### U MICAO, UAX #### [facility] [address] [place] [address] Community Facilitator: Ziggy Hilario MD Anion gap [Moles/Vol] 12 mmol/L Normal 9-16 [facility] Comment on above: Performed By: #### U MICAO, UAX #### [facility] [address] [place], [place] [id number] Community Facilitator: Ziggy Hilario MD AST [Catalytic activity/Vol] 29 U/L Normal 10-50 [facility] Comment on above: Performed By: #### U MICAO, UAX #### [facility] [address] [place], [place] [address] Community Facilitator: Ziggy Hilario MD Bilirubin [Mass/Vol] 0.3 mg/dL Normal 0.00-1.20 [facility] Comment on above: Performed By: #### U CASSYO, UAX #### [facility] [address] [place] [address] Community Facilitator: Ziggy Hilario MD BUN/CRE Ratio 9 Normal 9-20 [facility] Comment on above: Performed By: #### U CASSYO, UAX #### [facility] [address] [place], [place] [id number] Community Facilitator: Ziggy Hilario MD Calcium [Mass/Vol] 10.1 mg/dL Normal 8.6-10.4 [facility] Comment on above: Performed By: #### U CASSYO, UAX #### [facility] [address] [place], [place] 0400183 Community Facilitator: Ziggy Hilario MD Chloride [Moles/Vol] 100 mmol/L Normal 98-107 [facility] Comment on above: Performed By: #### U MICAO, UAX #### [facility] [address] [place] [address] Community Facilitator: Ziggy Hialrio MD CO2 [Moles/Vol] 26 mmol/L Normal 20-31 [facility] Comment on above: Performed By: #### U MICAO, UAX #### [facility] [address] [place] [address] Community Facilitator: Ziggy Hilario MD Creatinine [Mass/Vol] 1.1 mg/dL Normal 0.70-1.20 [facility] Comment on above: Performed By: #### U CSASYO, UAX #### [facility] [address] [place] [address] Community Facilitator: Ziggy Hilario MD GFR/1.73 sq M.predicted among non-blacks MDRD (S/P/Bld) [Vol rate/Area] 76 mL/min/{1.73_m2} Normal >60 [facility] Comment on above: Result Comment: These [...] renal tubular secretion. Performed By: #### U REBEKA UAX #### [facility] [address] [place] [address] Community Facilitator: Ziggy Hilario MD Glucose [Mass/Vol] 100 mg/dL High 74-99 [facility] Comment on above: Performed By: #### Fantasma STALEY UAX #### [facility] [address] [place] [address] Community Facilitator: Ziggy Hilario MD Potassium [Moles/Vol] 4.1 mmol/L Normal 3.7-5.3 [facility] Comment on above: Performed By: #### U REBEKA, UAX #### [facility] [address] [place] [address] Community Facilitator: Ziggy Hilario MD Protein [Mass/Vol] 7.0 g/dL Normal 6.6-8.7 [facility] Comment on above: Performed By: #### U MICAO, UAX #### [facility] [address] [place] [address] Community Facilitator: Ziggy Hilario MD Sodium [Moles/Vol] 138 mmol/L Normal 136-145 [facility] Comment on above: Performed By: #### U MICAO, UAX #### [facility] [address] [place] [address] Community Facilitator: Ziggy Hilario MD Urea nitrogen [Mass/Vol] 10 mg/dL Normal 6-20 [facility] Comment on above: Performed By: #### U REBEKA, UAX #### [facility] [address] [place] [address] Community Facilitator: Ziggy Hilario MD [facility] Metabolic [facility] 08-05-2024 Albumin [Mass/Vol] 4.5 g/dL 3.5 - 5.2 g/dL [facility] Albumin/Globulin [Mass ratio] 1.8 {ratio} 1.0 - 2.5 [facility] ALP [Catalytic activity/Vol] 100 U/L 40 - 129 U/L [facility] ALT [Catalytic activity/Vol] 37 U/L 10 - 50 U/L [facility] Anion gap [Moles/Vol] 12 mmol/L 9 - 16 mmol/L [facility] AST [Catalytic activity/Vol] 29 U/L 10 - 50 U/L [facility] Bilirubin [Mass/Vol] 0.3 mg/dL 0.00 - 1.20 mg/dL [facility] Calcium [Mass/Vol] 10.1 mg/dL 8.6 - 10. 4 mg/dL [facility] Chloride [Moles/Vol] 100 mmol/L 98 - 10 7 mmol/L [facility] CO2 [Moles/Vol] 26 mmol/L 20 - 31 mmol/L [facility] Creatinine [Mass/Vol] 1.1 mg/dL 0.70 - 1.20 mg/dL [facility] Est, Glom Filt Rate 76 - PINF [facility] Comment on above: These results are not [...] 100 mg/dL High 74 - 99 mg/dL [facility] Potassium [Moles/Vol] 4.1 mmol/L 3.7 - 5.3 mmol/L [facility] Protein [Mass/Vol] 7.0 g/dL 6.6 - 8.7 g/dL [facility] Sodium [Moles/Vol] 138 mmol/L 136 - 145 mmol/L [facility] Urea nitrogen [Mass/Vol] 10 mg/dL 6 - 20 mg/dL [facility] Urea nitrogen/Creatinine [Mass ratio] 9 mg/mg 9 - 20 [facility] Lactic Acidon 08-05-2024 Lactate (BldV) [Moles/Vol] 1.2 mmol/L 0.5 - 2.2 mmol/L [facility] Lactate [Moles/Vol] 1.2 mmol/L Normal 0.5-2.2 [facility] Comment on above: Performed By: #### LAUREL ZUH #### [facility] [address] [place] [address] Community Facilitator: Ziggy Hilario MD Lipaseon 08-05-2024 Lipase [Catalytic activity/Vol] 101 U/L High 13 - 60 U/L [facility] Lipase [Catalytic activity/Vol] 101 U/L High 13-60 [facility] Comment on above: Performed By: #### U KIMMIE STALEYX #### [facility] [address] [place] [address] Community Facilitator: Ziggy Hilario MD No Panel Informationon 08-05 Interpretation and review of laboratory results Abnormal [facility] CNPNon 07-30-2024 CNPN Normal [facility] ANES POSTPROC EVALon 024 ANES POSTPROC EVAL Normal [facility] ANES PRE-OPon 07-28-2024 ANES PRE-OP Normal [facility] EGD Study observation Narrat iveon 07-28-2024 [facility] Radiology Study observation (narrative) [facility] GLUCOSE, BLOOD (POC)on 07-28 Glucose [Mass/Vol] 101 mg/dL Abnormal 74 - 99 mg/dL [facility] Comment on above: Location:[place] [address] The Accu-Chek Inform II glucose meter has [...] Interpretation and review of laboratory results Abnormal [facility] Glucose [Mass/Vol] 110 mg/dL Abnormal 74 - 99 mg/dL [facility] Comment on above: Location:[place] [address] The Accu-Chek Inform II glucose meter has [...] Interpretation and review of laboratory results Abnormal [facility] NURSING PROGon 07-28-2024 NURSING PROG Normal [facility] NURSING PROG Normal [facility] Upper EUSon 07-28-2024 Upper EUS Normal [facility] CNPNon 07-24-2024 CNPN Normal [facility] CNOVon 07-22-2024 CNOV Normal [facility] Cancer Ag19-9 SerPl-aCncon 1 Cancer Ag 19-9 Qn 4.0 [arb'U]/mL Normal <36.[address] [facility] Comment on above: Order Comment: Speci men Type: BLOOD SPECIMENOrdering Facility: [facility] Address: [address] [place] [address] Result Comment: [facility] er antigen 19-9 test is used as an aid in monitoring response to treatment or recurrence in patients with established pancreatic, hepatobiliary, or gastrointestinal malignancies. Clinical correlation is required.The CA 19-9 Antigen test was performed using the [employer] DXI paramagnetic particle chemiluminescent immunoassay method. Results obtained with different assay methods or kits cannot be used interchangeably. Performed By: #### 2 4108-3 ####[facility] [id number] [place] [address] [place] PANC ELASTASE, FECALon 07-22 ELASTASE INTERPRETATION Severe Exocrine Pancreatic Insufficiency Abnormal Normal [facility] Comment on above: Order Comment: Yasmini brice Type: STOOL SPECIMENOrdering Facility: [facility] Address: [address] [place] [address] Performed By: #### P ANCEF ####[facility] [id number] [place] [address] [place] ELASTASE-1 CONCENTRATION 86 ug/g Low >=200 [facility] Comment on above: Order Comment: Yasmini brice Type: STOOL SPECIMENOrdering Facility: [facility] Address: [address] [place] [address] Result Comment: Inte rpretation:<100 ug/g: Severe Exocrine Pancreatic Bmmmzqjoyzcso124-420 ug/g: Mild to Moderate Exocrine Pancreatic Insufficiency>=200 ug/g: Normal Performed By: #### P ANCEF ####[facility] [id number] [facility] [id number] [place] [address] [place] CNPNon 07-21-2024 CNPN Normal [facility] CNCOon 07-17-2024 CNCO Letter Text Normal [facility] CNPNon 07-17-2024 CNPN Normal [facility] B12/Folate Panelon Cobalamin (Vitamin B12) [Mass/Vol] 979 pg/mL Normal 232-1245 [facility] Comment on above: Performed By: #### B 12FOL #### [facility] [address] [place] [address] Community Facilitator: Reno Duron MD Folic Acid >20.0 Normal 4.8-24.2 [facility] Comment on above: Performed By: #### B 12FOL #### [facility] [address] [place] [address] Community Facilitator: Reno Duron MD Iron Binding Cap.on 07-15-20 24 % Fe Saturation 19 % Low 20-55 [facility] Comment on above: Performed By: #### Chantell RÍOS LDLDIR #### [facility] [address] [place] [address] Community Facilitator: Reno Duron MD Iron [Mass/Vol] 68 ug/dL Normal 61-157 [facility] Comment on above: Performed By: #### Chantell RÍOS LDLDIR #### [facility] [address] [place] [address] Community Facilitator: Reno Duron MD Total Fe Binding Cap 351 ug/dL Normal 250-450 [facility] Comment on above: Performed By: #### Chantell RÍOS LDLDIR #### [employer] [address] [place] [address] Community Facilitator: Reno Duron MD Unbound Fe Bind Cap 283 ug/dL Normal 112-347 [facility] Comment on above: Performed By: #### Chantell RÍOS LDLDIR #### [employer] [address] [place] [address], [place] [address] Community Facilitator: Reno Duron MD PSA, Screeningon 07-15-2024 Prostatic Spec. Ag 1.80 ng/mL Normal 0.00-4.00 [facility] Comment on above: Result Comment: The Gwyn ECLIA assay is used. Results obtained with different assay methods cannot be used interchangeably. Performed By: #### U REBKEA UAX #### [address] [place] [address] Community Facilitator: Ziggy Hilario MD Vitamin D 25 OHon 07-15-2024 Vitamin D 25 [place] >120.0 High 30.0-100.0 [facility] Comment on above: Result Comment: Reference Range: Vitamin D status Range Deficiency <20 ng/mL Mild Deficiency 20-30 ng/mL Sufficiency 30-100 ng/mL Toxicity >100 ng/mL Performed By: #### T KHUSHBU LDLDIR #### [facility] [employer] [address] [place] [id number] Community Facilitator: Reno Duron MD TSH With Reflex Ft4on 2023 TSH Qn 0.85 m[IU]/L [facility] TSH w/reflex to FT4on 2023 Thyroid Stim. Horm. 0.85 uIU/mL Normal 0.27-4.20 [facility] Comment on above: Performed By: #### T KHUSHBU LDLDIR #### [place] [address] [place], [place] 2596608 Community Facilitator: Reno Duron MD 36on 07-08-2024 36 Pt [...] to call him with results please advise [facility] 36 Upon learning that p t follows with Dr. Davies for GI care, I called and informed him that Dr. Davies (who ordered the tests) is the one to go over the results with him. Pt indicated understanding and said he would call Dr. Davies immediately. [facility] 36 Patient called back looking for an update. I did inform patient that it does look like we just recently received results. Patient would like the doctor to call him with results from the biopsy. Please advise. [facility] Telephoneon 07-08-2024 Telephone [phone] Alin Light 1970 M Date Provider Department Center 07/08/2024 CHAI ABDALLA [facility] ARON No family history on file [facility] 36on 07-03-[address] Aponte, This patient is very anxious to speak to you. Can I tell him when he can expect to hear from you? Ana Maria [facility] 36 Pt called in again regarding lab [...] can be done to help with that [facility] 36 Patient called to go over test results. Patient was informed that test results haven't come in yet and the doctor needs to review them once the results are in. Patient would like a call once the results are in. [facility] 36 Pt called in again i s very concerned and worried about biopsy results and would like to know if they are in . Advised pt they are still in process. Pt would like a call back as soon as possible [facility] 36on 07-02-2024 36 Patient called in, i s requesting a call to go over biopsy results once they've been reviewed. Confirmed patients phone number on file. [facility] Telephoneon 07-02-2024 Telephone [phone] Alin Light 1970 M Date Provider Department Center 07/02/2024 375-LUIS F APONTE [facility] GI [facility] No family history on file Normal [facility] HISTOLOGY - TISSUE EXAMon LAB AP CASE REPORT Normal [facility] Comment on above: Result Comment: Surg ical Pathology Case: [id number] Authorizing Provider: Luis F Aponte MD Collected: 06/26/2024 1554 Ordering Location: [facility] Received: 06/27/2024 0811 [facility] Pathologist: Maritza Box MD Specimens: A) - Small Intestine, Duodenum, duodenal bx r/o celiac B) - Distal Esophagus, distal esophagus 35 bx r/o dysplagia C) - Distal Esophagus, distal esophageal bx 33 r/o dysplagia Performed By: #### L [id number] ####[facility] (BEAKER)[address] [place] [address] LAB AP CLINICAL INFORMATION Order Diagnoses Normal [facility] Comment on above: Result Comment: K86. 2 - Pancreatic cyst [ICD-10-CM] R93.5 - Abnormal CT of the abdomen [ICD-10-CM] Performed By: #### L [id number] ####[facility] (BEAKER)[address] [place] [address] LAB AP GROSS DESCRIPTION Normal [facility] Comment on above: Result Comment: A. S mall Intestine, Duodenum. Received in formalin labeled Er[employer], duodenal bx r/o celiac, are 5 pieces of clemente-pink, irregular mucosal tissue ranging from 0.2 cm to 0.4 cm in greatest dimension. The specimen is submitted in toto in 1 cassette. Jordan Styles, Pathologists' Office Manager Executive Assistant Student B. Distal Esophagus. Received in formalin labeled [employer], distal esophagus 35 bx r/o dysplagia, are 3 pieces of clemente-pink, irregular mucosal tissue ranging from 0.2 cm to 0.4 cm in greatest dimension. The specimen is submitted in toto in 1 cassette. Jordan Styles Pathologists' Office Manager Executive Assistant Student C. Distal Esophagus. Received in formalin labeled [employer], distal esophageal bx 33 r/o dysplagia, are 2 pieces of clemente-pink, irregular mucosal tissue each measuring 0.3 cm in greatest dimension. The specimen is submitted in toto in 1 cassette. Sukumar Flynn' Office Manager Executive Assistant Student Performed By: #### L [id number] ####[facility] ([facility])[address] [place] [address] LAB AP MICROSCOPIC DESCRIPTION Microscopic examination performed. [facility] Comment on above: Performed By: #### L [id number] ####[facility] ([facility])[address] [place] [address] LAB AP REPORT FINAL DIAGNOSIS NARRATIVE [facility] Comment on above: Result Comment: A. D uodenum, biopsy: - No significant pathologic findings in duodenal mucosa B. 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 Normal [facility] NON-PRINTER SLOTTER FEEDER CYTOLOGY - CELLULAR EXAMon 06-26-2024 LAB AP CASE REPORT Normal [facility] Comment on above: Result Comment: Non- gynecologic Cytology Case: [id number] Authorizing Provider: Luis F Aponte MD Collected: 06/26/2024 9773 Ordering Location: [facility] Received: 06/27/2024 0910 [facility] Endoscopy Pathologist: Kalpana Ventura MD Specimen: Pancreas, Tail, pancreatic tail FNA Performed By: #### L [id number] ####[facility] ([facility])[address] [place] [address] LAB AP CLINICAL INFORMATION Order Diagnoses [facility] Comment on above: Result Comment: K86. 2 - Pancreatic cyst [ICD-10-CM] R93.5 - Abnormal CT of the abdomen [ICD-10-CM] Performed By: #### L [id number] ####[facility] ([facility])[address] [place] [address] LAB AP DIAGNOSIS COMMENT [facility] Comment on above: Result Comment: A. T he specimen is scantly cellular. While no evidence of high grade dysplasia is identified, very few groups of cyst lining epithelium are present in the sample for evaluation. In addition, cyst fluid chemistries could not be performed. Clinical and endoscopic correlation is suggested. Performed By: #### L [id number] ####[facility] ([facility])[address] [place] [address] LAB AP GROSS DESCRIPTION 6 air-dried slides, 3 alcohol-fixed slides, 30 mL CytoLyt with clear, colorless fluid. [facility] Comment on above: Performed By: #### L [id number] ####[facility] ([facility])[address] [place] [address] LAB AP INTRAOPERATIVE CONSULTATION [facility] Comment on above: Result Comment: Catracho Carvajal. Rapid on-site evaluation was performed by Kalpana Ventura MD. The material examined during rapid on-site evaluation was deemed adequate for diagnosis. Pass #1: Adequate Pass #2: Adequate Pass #3: Defer *Only select material is examined during the on-site evaluation. Final diagnosis is pending the review of all material submitted.* Performed By: #### L [id number] ####[facility] [place] [address] LAB AP REPORT FINAL DIAGNOSIS NARRATIVE [facility] Comment on above: Result Comment: A. catracho Bruno, EUS-guided fine needle aspiration: - Neoplastic mucinous cyst, favor an intraductal papillary mucinous neoplasm (IPMN). - No high grade dysplasia identified. - See comment. Performed By: #### L [id number] ####[facility] (BEAKER)[address] [place] [address] POCT GLUCOSE METER UNSOLICIT ED RESULTSon 06-26-2024 Glucose [Mass/Vol] 86 mg/dL Normal 70-105 [facility] Comment on above: Order Comment: Waive d Testing in the ED is performed under the ED CLIA certificate #[id number]. Result Comment: jenc k2 Performed By: #### L [id number] ####[facility] (BEAKER)[address] [place] [address] Prep for Procedureon 024 Prep for Procedure [id number] Alin Light 1970 [facility] Provider Department Center 06/26/2024 LUIS F BURRIS [facility] PREOP [place] [facility] No family history on file Normal [facility] Telephoneon 06-10-2024 Telephone [phone] Alin Light 1970 [facility] Provider Department [place] 06/10/2024 [facility] No family history on file Normal [facility] Telephoneon 05-30-2024 Telephone [phone] [facility] 1970 [facility] Provider Department [place] 05/30/2024 RM CHAI [facility] ARON No family history on file Normal [facility] BASIC METABOLIC PANLon 05-24 Anion gap [Moles/Vol] 11 mmol/L Normal 5-15 [facility] Comment on above: Performed By: #### 7 18-7, PLTCT, 13818-4, 07878-9, BMP, 3040- 3, LIVR, 96167-0 #### [facility] ([id number]) [address], [address] [place] [address] Calcium [Mass/Vol] 9.0 mg/dL Normal 8.5-10.5 [facility] Comment on above: Performed By: #### 7 18-7, PLTCT, 07051-1, 16399-4, BMP, 3040- 3, LIVR, 73499-5 #### [facility] ([id number]) [address], [address] [place] [address] Chloride [Moles/Vol] 106 mmol/L Normal 98-109 [facility] Comment on above: Performed By: #### 7 18-7, PLTCT, 08450-5, 18223-2, BMP, 3040- 3, LIVR, 23432-5 #### [facility] ([id number]) [address], [address] [place] [address] CO2 [Moles/Vol] 25 mmol/L Normal 22-32 [facility] Comment on above: Performed By: #### 7 18-7, PLTCT, 76630-0, 33180-3, BMP, 3040- 3, LIVR, 08924-1 #### [facility] ([id number]) [address], [address] [place] [address] Creatinine [Mass/Vol] 1.23 mg/dL Normal 0.60-1.30 [facility] Comment on above: Result Comment: METH OD TRACEABLE TO IDMS STANDARD Performed By: #### 7 18-7, PLTCT, 61812-4, 56546-5, BMP, 3040-3, LIVR, 27611-6 #### [facility] ([id number]) [address], [address] [place] [address] GFR/1.73 sq M.predicted among non-blacks MDRD (S/P/Bld) [Vol rate/Area] 70 mL/min/{1.73_m2} Normal >59 [facility] Comment on above: Result Comment: Reported eGFR is based on the CKD-EPI 2020 equation that does not use a race coefficient. Performed By: #### 7 18-7, PLTCT, 77853-9, 49616-8, BMP, 3040-3, LIVR, 43559-2 #### [facility] ([id number]) [address], [address] [place] [address] Glucose [Mass/Vol] 114 mg/dL High 65-99 [facility] Comment on above: Performed By: #### 7 18-7, PLTCT, 49574-5, 51736-5, BMP, 3040- 3, LIVR, 31241-7 #### [facility] ([id number]) [address], [address] [place] [address] Potassium [Moles/Vol] 3.6 mmol/L Normal 3.5-5.0 [facility] Comment on above: Performed By: #### 7 18-7, PLTCT, 11192-9, 25865-4, BMP, 3040- 3, LIVR, 30863-9 #### [facility] ([id number]) [address], [address] [place] [address] Sodium [Moles/Vol] 142 mmol/L Normal 134-146 [facility] Comment on above: Performed By: #### 7 18-7, PLTCT, 10291-5, 67067-4, BMP, 3040- 3, LIVR, 92031-4 #### [facility] ([id number]) [address], [address] [place] [address] Urea nitrogen [Mass/Vol] 15 mg/dL Normal 5-23 [facility] Comment on above: Performed By: #### 7 18-7, PLTCT, 13892-5, 02521-5, BMP, 3040- 3, LIVR, 00359-9 #### [facility] ([id number]) [address], [address] [place] [address] CBC AND AUTO DIFFon 05-24-20 24 ABSOLUTE BASOPHIL 0.0 X10E9/L Normal 0.0-0.2 [facility] Comment on above: Performed By: #### 8 9579-7, CBCA #### [facility] ([id number]) [address], [address] [place] [address] ABSOLUTE NEUTROPHIL 4.2 X10E9/L Normal 1.5-6.6 [facility] Comment on above: Performed By: #### 8 9579-7, CBCA #### [facility] ([id number]) [address], [address] [place] [address] Basophils/100 WBC (Bld) 0.4 % Normal [facility] Comment on above: Performed By: #### 8 9579-7, CBCA #### [facility] ([id number]) [address], [address] [place] [address] Eosinophils (Bld) [#/Vol] 0.1 10*3/uL Normal 0.0-0.4 [facility] Comment on above: Performed By: #### 8 9579-7, CBCA #### [facility] ([id number]) [address], [address] [place] [address] Eosinophils/100 WBC (Bld) 1.1 % Normal [facility] Comment on above: Performed By: #### 8 9579-7, CBCA #### [facility] ([id number]) [address], [address] [place] [address] Erythrocyte distribution width (RBC) [Ratio] 12.5 % Normal 11.5-15.0 [facility] Comment on above: Performed By: #### 8 9579-7, CBCA #### [facility] ([id number]) [address], [address] [place] [address] Hematocrit (Bld) [Volume fraction] 36.9 % Low 39-49 [facility] Comment on above: Performed By: #### 8 9579-7, CBCA #### [facility] ([id number]) [address], [address] [place] [address] Hemoglobin (Bld) [Mass/Vol] 12.6 g/dL Low 13.0-17.0 [facility] Comment on above: Performed By: #### 8 9579-7, CBCA #### [facility] ([id number]) [address], [address] [place] [address] Lymphocytes (Bld) [#/Vol] 2.6 10*3/uL Normal 1.0-3.5 [facility] Comment on above: Performed By: #### 8 9579-7, CBCA #### [facility] ([id number]) [address], [address] [place] [address] Lymphocytes/100 WBC (Bld) 34.5 % Normal [facility] Comment on above: Performed By: #### 8 9579-7, CBCA #### [facility] ([id number]) [address], [address] [place] [address] MCH (RBC) [Entitic mass] 28.9 pg Normal 27-34 [facility] Comment on above: Performed By: #### 8 9579-7, CBCA #### [facility] ([id number]) [address], [address] [place] [address] MCHC (RBC) [Mass/Vol] 34.2 g/dL Normal 32-36 [facility] Comment on above: Performed By: #### 8 9579-7, CBCA #### [facility] ([id number]) [address], [address] [place] [address] MCV (RBC) [Entitic vol] 85 fL Normal 80-100 [facility] Comment on above: Performed By: #### 8 9579-7, CBCA #### [facility] ([id number]) [address], [address] [place] [address] Monocytes (Bld) [#/Vol] 0.7 10*3/uL Normal 0-0.9 [facility] Comment on above: Performed By: #### 8 9579-7, CBCA #### [facility] ([id number]) [address], [address] [place] [address] Monocytes/100 WBC (Bld) 9.4 % Normal [facility] Comment on above: Performed By: #### 8 9579-7, CBCA #### [facility] ([id number]) [address], [address] [place] [address] Neutrophils/100 WBC (Bld) 54.6 % Normal [facility] Comment on above: Performed By: #### 8 9579-7, CBCA #### [facility] ([id number]) [address], [address] [place] [address] Platelet mean volume (Bld) [Entitic vol] 8.8 fL Normal 7-12 [facility] Comment on above: Performed By: #### 8 9579-7, CBCA #### [facility] ([id number]) [address], [address] [place] [address] Platelets (Bld) [#/Vol] 216 10*3/uL Normal 150-450 [facility] Comment on above: Performed By: #### 8 9579-7, CBCA #### [facility] ([id number]) [address], [address] [place] [address] RBC COUNT 4.36 X10E12/L Normal 4.10-5.70 [facility] Comment on above: Performed By: #### 8 9579-7, CBCA #### [facility] ([id number]) [address], [address] [place] [address] WBC (Bld) [#/Vol] 7.7 10*3/uL Normal 4.0-11.0 [facility] Comment on above: Performed By: #### 8 9579-7, CBCA #### [facility] ([id number]) [address], [address] [place] [address] ED Clinical Summaryon 2023 ED Clinical Summary (Inserted Image. Mariajose ble to display) [facility] [address] [place] [address] ED Clinical Summary Person Information Name: [facility]in [facility] Age: 53 Years : 1970 Sex: Male PCP: Eliana Morales Marital Status: Phone: Race: White Ethnicity: Not or Language: Jordanian Visit Reason: Abdominal pain; abdominal pain Acuity: 3 Enc Type: Emergency Med Service: Emergency Medicine Arrival: 05/23/2024 16:46:05 Discharge: 05/24/2024 02:20:00 LOS: 000 09:34 Checkin: 05/23/2024 16:46:05 Checkout: 05/24/2024 02:20:00 Dispo Type: Transfer to Acute Care Hospital Address: [facility] [id number] Provider Notes: History of Present Illness Patient [...] range between ( 27.2 and 40.8 ) [place] Auto: 7.6 % -- Normal range between [...] range between ( 41.0 and 53.0 ) [place] Absolute: 0.7 x10 MCH: 29.0 pg -- [...] 8.1 ) (more content not included)... Normal [facility] ED Note-Nursingon 05-24-2024 ED Note-Nursing this RN called repor t to Fatoumata at [facility]. care transferred via phone to Fatoumata and all her questions answered. pt going to room B759 Lisa Pittman Normal [facility] Glucose Glucometer (BldC) [M ass/Vol]on 05-24-2024 Glucose [Mass/Vol] 108 mg/dL High 65-99 [facility] Glucose [Mass/Vol] 115 mg/dL High 65-99 [facility] HEMOGLOBINon 05-24-2024 Hemoglobin (Bld) [Mass/Vol] 12.1 g/dL Low 13.0-17.0 [facility] Comment on above: Performed By: #### 7 18-7, PLTCT, 32732-0, 50120-2, BMP, 3040- 3, LIVR, 47374-2 #### [facility] ([id number]) [address], [address] [place] [address] LIPASEon 05-24-2024 Lipase [Catalytic activity/Vol] 63 U/L Normal 11-82 [facility] Comment on above: Performed By: #### 7 18-7, PLTCT, 67285-5, 35718-9, BMP, 3040- 3, LIVR, 93850-6 #### [facility] ([id number]) [address], [address] [place] [address] LIVER PANELon 05-24-2024 Albumin [Mass/Vol] 3.8 g/dL Normal 3.2-5.3 [facility] Comment on above: Performed By: #### 7 18-7, PLTCT, 54005-7, 95809-5, BMP, 3040- 3, LIVR, 82689-4 #### [facility] ([id number]) [address], [address] [place] [address] ALP [Catalytic activity/Vol] 74 U/L Normal 39-130 [facility] Comment on above: Performed By: #### 7 18-7, PLTCT, 64930-9, 68135-3, BMP, 3040- 3, LIVR, 98829-4 #### [facility] ([id number]) [address], [address] [place] [address] ALT [Catalytic activity/Vol] 30 U/L Normal 0-40 [facility] Comment on above: Performed By: #### 7 18-7, PLTCT, 46674-3, 91264-1, BMP, 3040- 3, LIVR, 14741-9 #### [facility] ([id number]) [address], [address] [place] [address] AST [Catalytic activity/Vol] 21 U/L Normal 0-41 [facility] Comment on above: Performed By: #### 7 18-7, PLTCT, 04475-1, 93717-8, BMP, 3040- 3, LIVR, 93256-9 #### [facility] ([id number]) [address], [address] [place] [address] Bilirubin [Mass/Vol] 0.3 mg/dL Normal 0.3-1.2 [facility] Comment on above: Performed By: #### 7 18-7, PLTCT, 40390-9, 70110-4, BMP, 3040- 3, LIVR, 78488-2 #### [facility] ([id number]) [address], [address] [place] [address] Bilirubin.direct [Mass/Vol] 0.0 mg/dL Normal 0.0-0.4 [facility] Comment on above: Performed By: #### 7 18-7, PLTCT, 12047-3, 73521-8, BMP, 3040- 3, LIVR, 07015-9 #### [facility] ([id number]) [address], [address] [place] [address] Protein [Mass/Vol] 6.0 g/dL Normal 6.0-8.0 [facility] Comment on above: Performed By: #### 7 18-7, PLTCT, 70386-6, 61525-7, BMP, 3040- 3, LIVR, 59131-1 #### [facility] ([id number]) [address], [address] [place] [address] MAGNESIUMon 05-24-2024 Magnesium [Mass/Vol] 1.8 mg/dL Normal 1.8-2.6 [facility] Comment on above: Performed By: #### 7 18-7, PLTCT, 55345-3, 12090-2, BMP, 3040- 3, LIVR, 62098-1 #### [facility] ([id number]) [address], [address] [address] PLATELET COUNT AND MPVon Platelet mean volume (Bld) [Entitic vol] 7.7 fL Normal 7-12 [facility] Comment on above: Performed By: #### 7 18-7, PLTCT, 79155-3, 97960-5, BMP, 3040- 3, LIVR, 86235-8 #### [facility] ([id number]) [address] [address] Platelets (Bld) [#/Vol] 222 10*3/uL Normal 150-450 [facility] Comment on above: Performed By: #### 7 18-7, PLTCT, 35721-9, 11092-6, BMP, 3040- 3, LIVR, 83425-5 #### [facility] ([id number]) [address], [address] [place] [address] Troponin I.cardiac High sens itivity method [Mass/Vol]on 05-24-2024 1 HOUR TROP I, HIGH SENSITIVITY 4 ng/L Normal <21 [facility] Comment on above: Performed By: #### 8 9579-7, CBCA #### [facility] ([id number]) [address], [address] [place] [address] TROPONIN I, HIGH SENSITIVITY 3 ng/L Normal <21 [facility] Comment on above: Performed By: #### 7 18-7, PLTCT, 83773-2, 25143-6, BMP, 3040- 3, LIVR, 23974-8 #### [facility] ([id number]) [address], [address] [place] [address] aPTT Coag (PPP) [Time]on aPTT Coag (Bld) [Time] 34 s Normal 26-37 [facility] Comment on above: Performed By: #### 7 18-7, PLTCT, 83091-3, 57256-7, BMP, 3040- 3, LIVR, 61108-6 #### [facility] ([id number]) [address], [address] [place] [address] .UA Microscp Aon 05-23-2024 UA RBC Quant 0 /HPF Normal 0-5 [facility] Comment on above: Performed By: #### C OMP #### [address] [address] UA WBC Quant 0 /HPF Normal 0-5 [facility] Comment on above: Performed By: #### C OMP #### [address] [address] .eGFRon 05-23-2024 GFR/1.73 sq M.predicted MDRD (S/P/Bld) [Vol rate/Area] mL/min/{1.73_m2} Normal >=60 [facility] Comment on above: Result Comment: [facility] have implemented the eGFR calculation approach [...] years Performed By: #### C OMP #### [address] [address] CBC w/ Diffon 05-23-2024 Erythrocyte distribution width (RBC) [Ratio] 12.4 % Normal 11.6-14.8 [facility] Comment on above: Performed By: #### C BC #### [address] [address] Hematocrit (Bld) [Volume fraction] 39.5 % Low 41.0-53.0 [facility] Comment on above: Performed By: #### C BC #### [address] [address] Hemoglobin (Bld) [Mass/Vol] 13.5 g/dL Normal 13.5-17.5 [facility] Comment on above: Performed By: #### C BC #### [address] [address] MCH (RBC) [Entitic mass] 29.0 pg Normal 27.0-35.0 [facility] Comment on above: Performed By: #### C BC #### [address] [address] MCHC 34.1 % Normal 31.0-37.0 [facility] Comment on above: Performed By: #### C BC #### [address] [address] MCV (RBC) [Entitic vol] 85.0 fL Normal 80.0-100.0 [facility] Comment on above: Performed By: #### C BC #### [address] [address] Platelet 265 x10*3/mcL Normal 150-450 [facility] Comment on above: Performed By: #### C BC #### [address] [address] Platelet mean volume (Bld) [Entitic vol] 7.4 fL Normal 6.7-10.6 [facility] Comment on above: Performed By: #### C BC #### [address] [address] RBC 4.65 x10*6/mcL Normal 4.30-5.80 [facility] Comment on above: Performed By: #### C BC #### [address] [address] WBC 9.4 x10*3/mcL Normal 4.5-11.0 [facility] Comment on above: Performed By: #### C BC #### [address] [address] CMPon 05-23-2024 Albumin [Mass/Vol] 4.5 g/dL Normal 3.2-4.9 [facility] Comment on above: Performed By: #### C OMP #### [address] [address] Albumin/Globulin [Mass ratio] 1.7 {ratio} Normal 1.1-2.2 [facility] Comment on above: Performed By: #### C OMP #### [address] [address] Alk Phos 80 IU/L Normal 32-91 [facility] Comment on above: Performed By: #### C OMP #### [address] [address] ALT [Catalytic activity/Vol] 41 U/L Normal 17-63 [facility] Comment on above: Performed By: #### C OMP #### [address] [address] Anion gap [Moles/Vol] 11 mmol/L Normal 4-12 [facility] Comment on above: Performed By: #### C OMP #### [address] [address] AST [Catalytic activity/Vol] 32 U/L Normal 15-41 [facility] Comment on above: Performed By: #### C OMP #### [address] [place] [address] Bili Total 0.6 mg/dL Normal 0.3-1.2 [facility] Comment on above: Performed By: #### C OMP #### [address] [place] [address] Calcium [Mass/Vol] 9.5 mg/dL Normal 8.5-10.3 [facility] Comment on above: Performed By: #### C OMP #### [address] [address] Chloride [Moles/Vol] 100 mmol/L Normal 98-110 [facility] Comment on above: Performed By: #### C OMP #### [address] [place] [address] CO2 [Moles/Vol] 26 mmol/L Normal 22-32 [facility] Comment on above: Performed By: #### C OMP #### [address] [place] [address] Creatinine [Mass/Vol] 1.28 mg/dL High 0.61-1.24 [facility] Comment on above: Performed By: #### C OMP #### [address] [place] [address] Glucose [Mass/Vol] 111 mg/dL High 70-99 [facility] Comment on above: Performed By: #### C OMP #### [address] [place] [address] Potassium [Moles/Vol] 4.0 mmol/L Normal 3.4-4.8 [facility] Comment on above: Performed By: #### C OMP #### [address] [place] [address] Protein [Mass/Vol] 7.2 g/dL Normal 6.5-8.1 [facility] Comment on above: Performed By: #### C OMP #### [address] [address] Sodium [Moles/Vol] 137 mmol/L Normal 133-142 [facility] Comment on above: Performed By: #### C OMP #### [address] [address] Urea nitrogen [Mass/Vol] 16 mg/dL Normal 8-26 [facility] Comment on above: Performed By: #### C OMP #### [address] [address] Urea nitrogen/Creatinine [Mass ratio] 12.5 mg/mg Normal 10.0-20.0 [facility] Comment on above: Performed By: #### C OMP #### [address] [address] [address] Abdomen Pelvis w/ IV Cont [facility] 05-23-2024 CT Abdomen Pelvis w/ IV Contrast [...] Electronically Signed in Other Vendor System) Normal [facility] Diff Autoon 05-23-2024 Baso Absolute 0.0 x10*3/mcL Normal 0.0-0.2 [facility] Comment on above: Performed By: #### . Automated Diff #### [address] [address] Basophils/100 WBC (Bld) 0.4 % Normal 0.0-1.2 [facility] Comment on above: Performed By: #### . Automated Diff #### [address] [address] Eos Absolute 0.1 x10*3/mcL Normal 0.0-0.4 [facility] Comment on above: Performed By: #### . Automated Diff #### [address] [address] Eosinophils/100 WBC (Bld) 0.8 % Normal 0.0-6.1 [facility] Comment on above: Performed By: #### . Automated Diff #### [address] [address] Lymph Absolute 2.1 x10*3/mcL Normal 1.0-4.8 [facility] Comment on above: Performed By: #### . Automated Diff #### [address] [address] Lymphocytes/100 WBC (Bld) 22.3 % Low 27.2-40.8 [facility] Comment on above: Performed By: #### . Automated Diff #### [address] [address] [place] Absolute 0.7 x10*3/mcL Normal 0.3-1.1 [facility] Comment on above: Performed By: #### . Automated Diff #### [address] [address] Monocytes/100 WBC (Bld) 7.6 % Normal 4.7-13.9 [facility] Comment on above: Performed By: #### . Automated Diff #### [address] [address] Neutro Absolute 6.5 x10*3/mcL Normal 1.8-7.7 [facility] Comment on above: Performed By: #### . Automated Diff #### [address] [address] Neutro Auto 68.9 % Normal 47.2-70.8 [facility] Comment on above: Performed By: #### . Automated Diff #### [address] [address] ED Note-Nursingon 05-23-2024 ED Note-Nursing pt. requesting water . explained to patient that he is NPO until his CT result comes back in case of surgical emergency. pt. then asked for nausea medication and pain medication. Electronically signed by Leonard Sims 05/23/24 20:03 EDT Normal [facility] ED Note-Physicianon 05-23-20 ED Note-Physician Chief Complaint [...] and in the presence of Dr. Oneal. Alize Attestation: The information in this document, created by the medical records technician for me, accurately reflects the services I [...] _ ? NEXUS C-spine Criteria: _ ? [place] Ankle Rule: _ ? [place] Knee Rule: _ ? [place] Criteria for [...] results with patient. Plan for transfer to [facility] for ERCP. Patient was excepted at [facility], awaiting bed. Shared decision making: _ Code status: _ Assessment/Plan 1. History of pancreatitis Ordered: amitriptyline, 50 mg, Oral, Tab, HS (at bedtime), First Dose: 05/24/24 21:00:00 EDT, Dispense From Location: [facility], 05/23/24 22:15:00 EDT amLODIPine, 2.5 mg, Oral, Tab, Daily, First Dose: 05/24/24 9:00:00 EDT, Dispense From Location: [facility] [place][note 2], 05/23/24 22:12:00 EDT atorvastatin, 40 mg, Oral, Tab, Daily, First Dose: 05/24/24 9:00:00 EDT, Dispense From Location: [facility] [place][note 2], 05/23/24 22:15:00 EDT clonazePAM, 1 mg, Oral, Tab, HS (at bedtime), First Dose: 05/23/24 22:15:00 EDT, Dispense From Location: [facility] [place][note 2], 05/23/24 22:15:00 EDT clonazePAM, 0.5 mg, Oral, Tab, Daily, First Dose: 05/23/24 22:15:00 EDT, Dispense From Location: [facility] [place][note 2], 05/23/24 22:15:00 EDT pancrelipase, 6 caps, Oral, Cap-DR, TID, PRN other (see comment), First Dose: 05/23/24 22:15:00 EDT, Dispense From Location: [facility], 05/23/24 22:15:00 EDT ziprasidone, 40 mg, Oral, Cap, HS (at bedtime), First Dose: 05/23/24 22:15:00 EDT, Dispense From Location: [facility] [place][note 2], 05/23/24 22:15:00 EDT Complete Blood Count w/ Differential Comprehensive Metabolic Panel 2. Pancreatic duct dilated Ordered: amitriptyline, 50 mg, Oral, Tab, HS (at bedtime), First Dose: 05/24/24 21:00:00 EDT, Dispense From Location: [facility], 05/23/24 22:15:00 EDT amLODIPine, 2.5 mg, Oral, Tab, Daily, First Dose: 05/24/24 9:00:00 EDT, Dispense From Location: [facility] [place][note 2], (more content not included)... Normal [facility] Lipaseon 05-23-2024 Lipase Lvl 103 IU/L High 22-51 [facility] Comment on above: Performed By: #### C OMP #### [place] [address] UA w Culture if Indon 2023 Color (U) Yellow Normal Yellow [facility] Comment on above: Performed By: #### U CI #### [place] [address] Ketones Ql (U) Negative Normal Negative [facility] Comment on above: Performed By: #### U CI #### [place] [id number] UA Blood Negative Normal Negative [facility] Comment on above: Performed By: #### U CI #### [place] [id number] UA Clarity Clear Normal Clear [facility] Comment on above: Performed By: #### U CI #### [address] [place] [address] UA Glucose Normal Normal Negative [facility] Comment on above: Performed By: #### U CI #### [address] [place] [address] UA Leukocyte Esterase Negative Normal Negative [facility] Comment on above: Performed By: #### U CI #### [address] [place] [address] UA Nitrite Negative Normal Negative [facility] Comment on above: Performed By: #### U CI #### [address] [address] UA pH 7.0 Normal 4.5 - 7.8 [facility] Comment on above: Performed By: #### U CI #### [address] [address] UA Protein Negative Normal Negative [facility] Comment on above: Performed By: #### U CI #### [address] [place] [address] UA Source Clean Catch Normal [facility] Comment on above: Performed By: #### U CI #### [address] [place] [address] UA Spec Grav 1.010 Normal 1.003-1.035 [facility] Comment on above: Performed By: #### U CI #### [address] [place] [address] UA Urobilinogen Normal Normal 0.2 - 1.0 [facility] Comment on above: Performed By: #### U CI #### [address] [address] Urobilinogen (U) [Mass/Vol] Negative Normal Negative [facility] Comment on above: Performed By: #### U CI #### [address] [address] [address] CERVICAL SPINE W CONTRAST on 04-27-2024 [...] Marvin Byrd MD 04/27/24 Final result Normal [facility] No Panel Informationon 04-26 Left wrist: [...] above. Kyphosis of the thoracic spine. 3. Nelc-yu-pmmjceug degenerative changes in the thoracic spine. Lumbar spine: 1. Remote vertebroplasty and compression deformity of L3. 2. No acute vertebral body height loss in the lumbar spine. PN RIS CONSOLIDATED EXAMINATION: 3 XRAY VIEWS OF [...] adjacent to the lateral right iliac bone. [facility] RIS CONSOLIDATED Miguel Jimenez MD - 04/26/2024 EXAMINATION: 3 XRAY VIEWS [...] above. Kyphosis of the thoracic spine. 3. Kach-nn-nqpwzdzz degenerative changes in the thoracic spine. Lumbar spine: 1. Remote vertebroplasty and compression deformity of L3. 2. No acute vertebral body height loss in the lumbar spine. [facility] [employer] No Panel InformationOrdered By: Miguel Jimenez on 04-26-2024 [facility] [employer] Work Phone: XR FINGER LEFT (MIN 2 [...] above. Kyphosis of the thoracic spine. 3. Sszx-qe-drwainjv degenerative changes in the thoracic spine. Lumbar spine: 1. Remote vertebroplasty and compression deformity of L3. 2. No acute vertebral body height loss in the lumbar spine. Interpreted by: Miguel Jimenez MD Signed by: Miguel Jimenez MD 04/26/24 Final result Normal [facility] XR Finger - left 2 Viewson 0 04-26-2024 Radiology Study observation (narrative) [facility] XR LUMBAR SPINE (2-3 VIEWS)o n 04-26-2024 [...] above. Kyphosis of the thoracic spine. 3. Zjjx-ga-dbfibnxr degenerative changes in the thoracic spine. Lumbar spine: 1. Remote vertebroplasty and compression deformity of L3. 2. No acute vertebral body height loss in the lumbar spine. Interpreted by: Miguel Jimenez MD Signed by: Miguel Jimenez MD 04/26/24 Final result Normal [facility] XR Lumbar spine 2 or 3 Views on 04-26-2024 Radiology Study observation (narrative) [facility] XR THORACIC SPINE (2 VIEWS)o n [...] above. Kyphosis of the thoracic spine. 3. Jxbp-xo-pjcnivjr degenerative changes in the thoracic spine. Lumbar spine: 1. Remote vertebroplasty and compression deformity of L3. 2. No acute vertebral body height loss in the lumbar spine. Interpreted by: Miguel Jimenez MD Signed by: Miguel Jimenez MD 04/26/24 Final result Normal [facility] XR Thoracic spine 2 Viewson 04-26-2024 Radiology Study observation (narrative) [facility] XR WRIST LEFT (MIN 3 VIEWS)o n [...] above. Kyphosis of the thoracic spine. 3. Utwd-ms-zpxmablw degenerative changes in the thoracic spine. Lumbar spine: 1. Remote vertebroplasty and compression deformity of L3. 2. No acute vertebral body height loss in the lumbar spine. Interpreted by: Miguel Jimenez MD Signed by: Miguel Jimenez MD 04/26/24 Final result Normal [facility] XR Wrist - left 3 Viewson Radiology Study observation (narrative) [facility] Creatinineon 04-23-2024 Creatinine [Mass/Vol] 1.1 mg/dL 0.7 - 1.2 mg/dL [facility] Est, Glom Filt Rate 80 - PINF [facility] Eva [employer] [facility] Comment on above: These results are not intended for use in patients <18 years of age. eGFR results are calculated without a race factor using the 202 CKD-EPI equation. Careful clinical correlation is recommended, particularly when comparing to results calculated using previous equations. The CKD-EPI equation is less accurate in patients with extremes of muscle mass, extra-renal metabolism of creatine, excessive creatine ingestion, or following therapy that affects renal tubular secretion. [facility] Creatinine w/GFRon 4 Creatinine [Mass/Vol] 1.1 mg/dL Normal 0.7-1.2 [facility] Comment on above: Performed By: #### NIKKIE DOLLR #### [employer] [address] [place], [place] [id number] Community Facilitator: Reno Duron MD GFR/1.73 sq M.predicted among non-blacks MDRD (S/P/Bld) [Vol rate/Area] 80 mL/min/{1.73_m2} Normal >60 [facility] Comment on above: Result Comment: These [...] affects renal tubular secretion. Performed By: #### Chantell RÍOS LDLDIR #### [employer] [address] [place] [address] [phone] Community Facilitator: Reno Duron MD XR TOE LEFT (MIN [...] Ernie Gutiérrez MD 04/03/24 Final result Normal [facility] XR TOE LEFT (MIN 2 VIEWS)on [...] Ernie Gutiérrez MD 04/02/24 Final result Normal [facility] Benzodiazepines Screen Ql (U )on 03-26-2024 Benzodiazepines Ql (U) Negative Normal NEG [facility] Comment on above: Result Comment: Leon odiazepines screening cut off value = 200 ng/mL This report is intended for use in clinical monitoring or management of patients. Performed By: #### 1 [id number] #### [facility] ([id number]) [address] [place] [address], [address] [place] [address] [facility] GENERIC ORDERon 03-26-20 TEST NAME UQNTPP Normal [facility] Comment on above: Performed By: #### C GO #### [facility] ([id number]) [address] [place] [address] TEST RESULT See Below [facility] Comment on above: Result Comment: NOTE [...] carboxylic acid (THCA) is a metabolite of pmtvd-9-ndidnuhqnlumhuhyswmw which is the main active component of marijuana. Fentanyl, Urine <6 ng/mL <6 Buprenorphine, Ur <20 ng/mL <20 Methadone Urine <16 ng/mL <16 Methadone metabolite Urine <6 ng/mL <6 EDDP is a metabolite of methadone. Note See Below This test is for medical use only. This test was developed and its performance characteristics determined by [facility] [place] ([facility]). It has not been cleared or approved [...] Validity PH 7.2 4.5-8.0 Specimen Validity Specific [place] 1.005 1.003-1.035 Specimen Validity Oxidants <38 mg/L <200 Specimen Validity Nitrites <50 mg/L <500 Specimen Validity Chromate <10 mg/L <50 Test Performed By: [place] [address] Federal Air Marshal: Yakov Gurrola III, M.D. CLIA #[id number] Performed By: #### C GO #### [facility] ([id number]) [address] [place] [address] Laboratory comment Jacinto (Repo rt)on 03-26-2024 UNLISTED LAB TEST Sent to reference lab Normal [facility] Comment on above: Performed By: #### C GO #### [facility] ([id number]) [address] [place] [address] Basic Metabolic Panelon 05-2 Anion gap [Moles/Vol] 11 mmol/L 9 - 17 mmol/L [facility] Calcium [Mass/Vol] 9.6 mg/dL 8.6 - 10. 4 mg/dL [facility] Chloride [Moles/Vol] 98 mmol/L 98 - 10 7 mmol/L [facility] CO2 [Moles/Vol] 26 mmol/L 20 - 31 mmol/L [facility] Creatinine [Mass/Vol] 1.1 mg/dL 0.7 - 1.2 mg/dL [facility] [employer] Est, Glom Filt Rate 80 - PINF [facility] Comment on above: These results are not [...] 132 mg/dL High 70 - 99 mg/dL [facility] Interpretation and review of laboratory results Abnormal [facility] Potassium [Moles/Vol] 4.1 mmol/L 3.7 - 5.3 mmol/L [facility] Sodium [Moles/Vol] 135 mmol/L 135 - 144 mmol/L [facility] Urea nitrogen [Mass/Vol] 10 mg/dL 6 - 20 mg/dL [facility] Urea nitrogen/Creatinine [Mass ratio] 9 mg/mg 9 - [facility] Basic Metabolic Profon 03-17 Anion gap [Moles/Vol] 11 mmol/L Normal - [facility] Comment on above: Performed By: #### T RIG LDLDIR #### [facility] [employer] [address] [place] [address] [phone] Community Facilitator: Reno Duron MD BUN/CRE Ratio 9 Normal - [facility] Comment on above: Performed By: #### T RIG LDLDIR #### [facility] [employer] [address] [place] [address] Community Facilitator: Reno Duron MD Calcium [Mass/Vol] 9.6 mg/dL Normal 8.6-10.4 [facility] Comment on above: Performed By: #### T RIG LDLDIR #### [employer] [address] [place] [address] [phone] Community Facilitator: Reno Duron MD Chloride [Moles/Vol] 98 mmol/L Normal 98-107 [facility] Comment on above: Performed By: #### T RIG LDLDIR #### [employer] [address] [place] [address] [phone] Community Facilitator: Reno Duron MD CO2 [Moles/Vol] 26 mmol/L Normal - [facility] Comment on above: Performed By: #### T RIG LDLDIR #### [facility] [address] [place] [address] Community Facilitator: Reno Duorn MD Creatinine [Mass/Vol] 1.1 mg/dL Normal 0.7-1.2 [facility] Comment on above: Performed By: #### T RIG LDLDIR #### [facility] [address] [place] [phone] Community Facilitator: Reno Duron MD GFR/1.73 sq M.predicted among non-blacks MDRD (S/P/Bld) [Vol rate/Area] 80 mL/min/{1.73_m2} Normal >60 [facility] Comment on above: Result Comment: These [...] By: #### T RIG LDLDIR #### [facility] [address] [place] [address] Community Facilitator: Reno Duron MD Glucose [Mass/Vol] 132 mg/dL High 70-99 [facility] Comment on above: Performed By: #### T RIG LDLDIR #### [facility] [address] [place] [address] Community Facilitator: Reno Duron MD Potassium [Moles/Vol] 4.1 mmol/L Normal 3.7-5.3 [facility] Comment on above: Performed By: #### T RIG LDLDIR #### [facility] [address] [place] [address] Community Facilitator: Reno Duron MD Sodium [Moles/Vol] 135 mmol/L Normal 135-144 [facility] Comment on above: Performed By: #### T RIG LDLDIR #### [facility] [address] [place] [address] [phone] Community Facilitator: Reno Duron MD Urea nitrogen [Mass/Vol] 10 mg/dL Normal 6-20 [facility] Comment on above: Performed By: #### Chantell RÍOS LDLDIR #### [facility] [address] [place], [place] [phone] Community Facilitator: Reno Duron MD Brain Natri. Peptideon 03-17 Pro-BNP <36 Normal <300 [facility] Comment on above: Result Comment: An age-independent cutoff point of 300 pg/ml has a 98% negative predictive value excluding acute heart failure. Performed By: #### Chantell RÍOS LDLDIR #### [facility] [address] [place], [place] [phone] Community Facilitator: Reno Duron MD Brain Natriuretic Peptideon 03-17-2024 Natriuretic peptide B (Bld) [Mass/Vol] pg/mL NINF - 300 pg/mL [facility] Comment on above: An age-independent cutoff point of 300 pg/ml has a 98% negative predictive value excluding acute heart failure. [facility] CBC with Auto Differentialon 03-17-2024 Basophils (Bld) [#/Vol] 0.04 10*3/uL [facility] Immature granulocytes (Bld) [#/Vol] 0.07 10*3/uL [facility] Interpretation and review of laboratory results Abnormal [facility] Lymphocytes/100 WBC (Bld) 2.40 % [facility] Monocytes/100 WBC (Bld) 0.86 % [facility] Neutrophils/100 WBC (Bld) 60 % 36 - 65 % [facility] Nucleated RBC/100 WBC (Bld) [Ratio] 0.0 % 0.0 per 100 WBC [facility] Segmented neutrophils/100 WBC (Bld) 5.44 % [facility] WBC other (Bld) [#/Vol] 8.9 [facility] CBC with Diffon 03-17-2024 Basophils/100 WBC (Bld) 1 % Normal 0-2 [facility] Comment on above: Performed By: #### T RIG LDLDIR #### [place] [address] Community Facilitator: Reno Duron MD Eosinophils (Bld) [#/Vol] 0.05 10*3/uL Normal 0.00-0.44 [facility] Comment on above: Performed By: #### T RIG LDLDIR #### [facility] [employer] [address] [place] [address] Community Facilitator: Reno Duron MD Eosinophils/100 WBC (Bld) 1 % Normal 1-4 [facility] Comment on above: Performed By: #### T RIG LDLDIR #### [facility] [employer] [address] [place] [address] Community Facilitator: Reno Duron MD Erythrocyte distribution width (RBC) [Ratio] 12.0 % Normal 11.8-14.4 [facility] Comment on above: Performed By: #### T RIG LDLDIR #### [place] [address] Community Facilitator: Reno Duron MD Hematocrit (Bld) [Volume fraction] 38.6 % Low 40.7-50.3 [facility] Comment on above: Performed By: #### T RIG LDLDIR #### [place] [address] Community Facilitator: Reno Duron MD Hemoglobin (Bld) [Mass/Vol] 12.8 g/dL Low 13.0-17.0 [facility] Comment on above: Performed By: #### T RIG LDLDIR #### [facility] [employer] [address] [place] [address] Community Facilitator: Reno Duron MD Immature granulocytes/100 WBC (Bld) 1 % High 0 [facility] Comment on above: Performed By: #### T RIG LDLDIR #### [facility] [address] [id number] Community Facilitator: Reno Duron MD Lymphocytes/100 WBC (Bld) 27 % Normal 24-43 [facility] Comment on above: Performed By: #### T RIG LDLDIR #### [address] [address] Community Facilitator: Reno Duron MD MCH (RBC) [Entitic mass] 28.8 pg Normal 25.2-33.5 [facility] Comment on above: Performed By: #### T RIG LDLDIR #### [facility] [employer] [address] [place] [address] Community Facilitator: Reno Duron MD MCHC (RBC) [Mass/Vol] 33.2 g/dL Normal 28.4-34.8 [facility] Comment on above: Performed By: #### T RIG LDLDIR #### [facility] [employer] [address] [place] [address] Community Facilitator: Reno Duron MD MCV (RBC) [Entitic vol] 86.9 fL Normal 82.6-102.9 [facility] Comment on above: Performed By: #### T RIG LDLDIR #### [facility] [employer] [address] [place] [address] Community Facilitator: Reno Duron MD Monocytes/100 WBC (Bld) 10 % Normal 3-12 [facility] Comment on above: Performed By: #### T RIG LDLDIR #### [facility] [employer] [address] [place] [address] Community Facilitator: Reno Duron MD Platelet mean volume (Bld) [Entitic vol] 9.2 fL Normal 8.1-13.5 [facility] Comment on above: Performed By: #### T RIG LDLDIR #### [facility] [address] [place] [address] [phone] Community Facilitator: Reno Duron MD Platelets (Bld) [#/Vol] 277 10*3/uL Normal 138-453 [facility] Comment on above: Performed By: #### T KHUSHBU LDLDIR #### [address] [address] Community Facilitator: Reno Duron MD RBC (Bld) [#/Vol] 4.44 10*6/uL Normal 4.21-5.77 [facility] Comment on above: Performed By: #### T KHUSHBU LDLDIR #### [address] [address] Community Facilitator: Reno Duron MD Abs. Basophil 0.04 k/uL Normal 0.00-0.20 [facility] Comment on above: Performed By: #### Chantell RÍOS LDLDIR #### [address] [address] Community Facilitator: Reno Duron MD Abs.Imm.Granulocyte 0.07 k/uL Normal 0.00-0.30 [facility] Comment on above: Performed By: #### T KHUSHBU LDLDIR #### [address] [address] Community Facilitator: Reno Duron MD Abs.Neutrophil (Seg) 5.44 k/uL Normal 1.50-8.10 [facility] Comment on above: Performed By: #### T KHUSHBU LDLDIR #### [address] [address] Community Facilitator: Reno Duron MD Lymphocytes (Bld) [#/Vol] 2.40 10*3/uL Normal 1.10-3.70 [facility] Comment on above: Performed By: #### T KHUSHBU LDLDIR #### [address] [address] Community Facilitator: Reno Duron MD Monocytes (Bld) [#/Vol] 0.86 10*3/uL Normal 0.10-1.20 [facility] Comment on above: Performed By: #### T RIG, LDLDIR #### [facility] [employer] [address] [place] [address] Community Facilitator: Reno Duron MD Neutrophil (Seg) 60 % Normal 36-65 [facility] Comment on above: Performed By: #### T RIG LDLDIR #### [facility] [employer] [address] [place] [address] Community Facilitator: Reno Duron MD NRBC Automated 0.0 per 100 WBC Normal 0.0 [facility] Comment on above: Performed By: #### T RIG LDLDIR #### [facility] [employer] [address] [place] [address] Community Facilitator: Reno Duron MD WBC (Bld) [#/Vol] 8.9 10*3/uL Normal 3.5-11.3 [facility] Comment on above: Performed By: #### T RIG, LDLDIR #### [facility] [address] [place] [address] Community Facilitator: Reno Duron MD No Panel Informationon 03-17 [facility] Portable XR Chest AP single viewon 03-17-2024 No radiographic evid ence of acute cardiopulmonary process. [facility] RIS CONSOLIDATED EXAMINATION: ONE XRAY VIEW OF THE CHEST 03/17/2024 2:11 pm COMPARISON: 01/31/2024 HISTORY: ORDERING SYSTEM PROVIDED HISTORY: chest pain TECHNOLOGIST PROVIDED HISTORY: chest pain FINDINGS: The lungs appear clear. The heart and mediastinal structures appear unremarkable. 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 There is a spinal stimulator in the midthoracic spine. There is no change from prior examination [facility] CONSOLIDATED Ernie Gutiérrez MD - 03/17/2024 [...] No radiographic evidence of acute cardiopulmonary process. [facility] Radiology Study observation (narrative) [facility] Portable XR Chest AP single viewOrdered By: Ernie Gutiérrez on 03-17-2024 [facility] Work Phone: Troponinon 03-17-2024 Troponin I.cardiac High sensitivity method [Mass/Vol] 11 ng/L 0 - 22 ng/L [facility] Comment on above: High Sensitivity Tro ponin values cannot be compared with other Troponin methodologies. [facility] Troponin, High Sens 11 ng/L Normal 0-22 [facility] Comment on above: Result Comment: High Sensitivity Troponin values cannot be compared with other Troponin methodologies. Performed By: #### T RIG LDLDIR #### [facility] [address] [place], [place] [phone] Community Facilitator: Reno Duron MD Troponin I.cardiac High sensitivity method [Mass/Vol] 11 ng/L 0 - 22 ng/L [facility] Comment on above: High Sensitivity Tro ponin values cannot be compared with other Troponin methodologies. Troponin, High Sens 11 ng/L Normal 0-22 [facility] Comment on above: Result Comment: High Sensitivity Troponin values cannot be compared with other Troponin methodologies. 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 Performed By: #### C OMP #### [facility] [address] [place] [address] Fe Fat Qualon 03-12-2024 Fe Fat Qual Negative Normal [facility] Comment on above: Performed By: #### F FA #### [facility] [address] [place] [address] Gastroenterology Office/Clin ic Noteon 03-12-2024 Gastroenterology Office/Clinic Note History of Present Illness This is a 53-year-old man who presented to the GI clinic to reestablish care. Patient was last evaluated by GI here at [facility] is in 01/2020 via telemedicine consultation. Patient has pertinent history of recurrent pancreatitis-underwent EUS in 05/2019 which showed gallbladder sludge, small stone-cholecystectomy was performed on 07/11/2019. Patient subsequently developed another episode of pancreatitis in 01/2020 while visiting family in [place]. The clinical course at the time had [...] reports [place] patient states that he has had recurrent episodes of pancreatitis over the last 4 years-last admission for pancreatitis was in December 2023 at [facility]. 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 Dong esophagus Continue PPI Avoid NSAIDs. Lifestyle modifications including weight loss, HOB elevation, allowing at least 1-3 hours after eating before lying down, avoiding alcohol and avoiding smoking. Patient states that he had a an EGD within the last few months at [facility]-done by Dr. Saravia-results unknown at this [...] polyp-pathology unknown. The procedure was done at [facility] by Dr. Saravia-please obtain records of [...] for pancreatitis was in December 2023 at [facility]. Patient states that the pancreatitis was attributed to his underlying hypertrigl (more content not included)... Normal [facility] CA 19-9on 02-08-2024 CA 19-9 17 U/mL Normal 0-35 [facility] Comment on above: Result Comment: The [employer] ECLIA assay is used. Results obtained with different assay methods cannot be used interchangeably. Performed By: #### C EA, CA19 #### [address] [address] Community Facilitator: Reno Duron MD CBC with Diffon 02-08-2024 Abs. Basophil <0.03 Normal 0.00-0.20 [facility] Comment on above: Performed By: #### T KHUSHBU LDLDIR #### [facility] [employer] [address] [place] [address] Community Facilitator: Reno Duron MD Abs.Imm.Granulocyte 0.18 k/uL Normal 0.00-0.30 [facility] Comment on above: Performed By: #### T KHUSHBU LDLDIR #### [facility] [address] [place] [address] Community Facilitator: Reno Duron MD Abs.Neutrophil (Seg) 6.09 k/uL Normal 1.50-8.10 [facility] Comment on above: Performed By: #### T KHUSHBU LDLDIR #### [facility] [employer] [address] [place] [address] Community Facilitator: Reno Duron MD Basophils/100 WBC (Bld) 0 % Normal 0-2 [facility] Comment on above: Performed By: #### T RIG, LDLDIR #### [address] [address] Community Facilitator: Reno Duron MD Eosinophils (Bld) [#/Vol] 0.10 10*3/uL Normal 0.00-0.44 [facility] Comment on above: Performed By: #### T RIG, LDLDIR #### [address] [address] Community Facilitator: Reno Duron MD Eosinophils/100 WBC (Bld) 1 % Normal 1-4 [facility] Comment on above: Performed By: #### T RIG, LDLDIR #### [address] [address] Community Facilitator: Reno Duron MD Immature granulocytes/100 WBC (Bld) 2 % High 0 [facility] Comment on above: Performed By: #### T RIG, LDLDIR #### [address] [address] Community Facilitator: Reno Duron MD Lymphocytes (Bld) [#/Vol] 2.29 10*3/uL Normal 1.10-3.70 [facility] Comment on above: Performed By: #### T RIG, LDLDIR #### [address] [address] Community Facilitator: Reno Duron MD Lymphocytes/100 WBC (Bld) 24 % Normal 24-43 [facility] Comment on above: Performed By: #### T RIG, LDLDIR #### [address] [address] Community Facilitator: Reno Duron MD Monocytes (Bld) [#/Vol] 0.70 10*3/uL Normal 0.10-1.20 [facility] Comment on above: Performed By: #### T RIG, LDLDIR #### [address] [address] Community Facilitator: Reno Duron MD Monocytes/100 WBC (Bld) 8 % Normal 3-12 [facility] Comment on above: Performed By: #### T RIG, LDLDIR #### [address] [address] Community Facilitator: Reno Duron MD Neutrophil (Seg) 65 % Normal 36-65 [facility] Comment on above: Performed By: #### T RIG, LDLDIR #### [address] [address] Community Facilitator: Reno Duron MD Erythrocyte distribution width (RBC) [Ratio] 12.3 % Normal 11.8-14.4 [facility] Comment on above: Performed By: #### T RIG, LDLDIR #### [address] [address] Community Facilitator: Reno Duron MD Hematocrit (Bld) [Volume fraction] 42.3 % Normal 40.7-50.3 [facility] Comment on above: Performed By: #### T RIG, LDLDIR #### [address] [address] Community Facilitator: Reno Duron MD Hemoglobin (Bld) [Mass/Vol] 13.5 g/dL Normal 13.0-17.0 [facility] Comment on above: Performed By: #### T RIG, LDLDIR #### [address] [address] Community Facilitator: Reno Duron MD MCH (RBC) [Entitic mass] 28.4 pg Normal 25.2-33.5 [facility] Comment on above: Performed By: #### T RIG, LDLDIR #### [facility] [employer] [address] [place] [address] Community Facilitator: Reno Duron MD MCHC (RBC) [Mass/Vol] 31.9 g/dL Normal 28.4-34.8 [facility] Comment on above: Performed By: #### T KHUSHBU LDLDIR #### [address] [address] Community Facilitator: Reno Duron MD MCV (RBC) [Entitic vol] 89.1 fL Normal 82.6-102.9 [facility] Comment on above: Performed By: #### T KHUSHBU LDLDIR #### [facility] [employer] [address] [place] [address] Community Facilitator: Reno Duron MD NRBC Automated 0.0 per 100 WBC Normal 0.0 [facility] Comment on above: Performed By: #### T KHUSHBU LDLDIR #### [address] [address] Community Facilitator: Reno Duron MD Platelet mean volume (Bld) [Entitic vol] 9.3 fL Normal 8.1-13.5 [facility] Comment on above: Performed By: #### T KHUSHBU LDLDIR #### [address] [address] Community Facilitator: Reno Duron MD Platelets (Bld) [#/Vol] 259 10*3/uL Normal 138-453 [facility] Comment on above: Performed By: #### T KHUSHBU LDLDIR #### [address] [address] Community Facilitator: Reno Duron MD RBC (Bld) [#/Vol] 4.75 10*6/uL Normal 4.21-5.77 [facility] Comment on above: Performed By: #### T KHUSHBU LDLDIR #### [facility] [employer] [address] [place] [address] Community Facilitator: Reno Duron MD WBC (Bld) [#/Vol] 9.4 10*3/uL Normal 3.5-11.3 [facility] Comment on above: Performed By: #### T RIG LDLDIR #### [facility] [place] [address] Community Facilitator: Reno Duron MD Carcinoembry. Antig.on 02-07 Carcinoembry. Antig. 7.5 ng/mL High 0.0-3.8 [facility] Comment on above: Result Comment: The [employer]uddler ECLIA assay is used. Results obtained with different assay methods cannot be used interchangeably. Performed By: #### C EA, CA19 #### [facility] [employer] [address] [place] [address] Community Facilitator: Reno Duron MD Comp Metabolic Pr/rfx MGon 0 02-08-2024 Albumin [Mass/Vol] 4.0 g/dL Normal 3.5-5.2 [facility] Comment on above: Performed By: #### T RIG LDLDIR #### [facility] [address] [place] [address] Community Facilitator: Reno Duron MD Albumin/Glob Ratio 1.4 Normal 1.0-2.5 [facility] Comment on above: Performed By: #### T RIG, LDLDIR #### [facility] [address] [place] [address] Community Facilitator: Reno Duron MD Alkaline Phos 155 U/L High 40-129 [facility] Comment on above: Performed By: #### T RIG LDLDIR #### [facility] [place] [address] Community Facilitator: Reno Duron MD ALT [Catalytic activity/Vol] 311 U/L High 5-41 [facility] Comment on above: Performed By: #### T RIG, LDLDIR #### [facility] [place] [address] Community Facilitator: Reno Duron MD Anion gap [Moles/Vol] 9 mmol/L Normal 9-17 [facility] Comment on above: Performed By: #### T RIG, LDLDIR #### [facility] [address] [place] [address] Community Facilitator: Reno Duron MD AST [Catalytic activity/Vol] 121 U/L High <40 [facility] Comment on above: Performed By: #### T RIG, LDLDIR #### [facility] [employer] [address] [place] [address] Community Facilitator: Reno Duron MD Bilirubin [Mass/Vol] 0.5 mg/dL Normal 0.3-1.2 [facility] Comment on above: Performed By: #### T RIG, LDLDIR #### [facility] [employer] [address] [place] [address] Community Facilitator: Reno Duron MD BUN/CRE Ratio 18 Normal 9-20 [facility] Comment on above: Performed By: #### T RIG, LDLDIR #### [address] [address] Community Facilitator: Reno Duron MD Calcium [Mass/Vol] 9.2 mg/dL Normal 8.6-10.4 [facility] Comment on above: Performed By: #### T RIG, LDLDIR #### [address] [address] Community Facilitator: Reno Duron MD Chloride [Moles/Vol] 99 mmol/L Normal 98-107 [facility] Comment on above: Performed By: #### T RIG, LDLDIR #### [facility] [employer] [address] [place] [address] Community Facilitator: Reno Duron MD CO2 [Moles/Vol] 29 mmol/L Normal 20-31 [facility] Comment on above: Performed By: #### T RIG, LDLDIR #### [facility] [employer] [address] [place] [address] Community Facilitator: Reno Duron MD Creatinine [Mass/Vol] 1.1 mg/dL Normal 0.7-1.2 [facility] Comment on above: Performed By: #### T RIG LDLDIR #### [facility] [address] [place] [address] Community Facilitator: Reno Duron MD GFR/1.73 sq M.predicted among non-blacks MDRD (S/P/Bld) [Vol rate/Area] 80 mL/min/{1.73_m2} Normal >60 [facility] Comment on above: Result Comment: These [...] Performed By: #### T RIG LDLDIR #### [employer] [address] [place] [address] Community Facilitator: Reno Duron MD Glucose [Mass/Vol] 123 mg/dL High 70-99 [facility] Comment on above: Performed By: #### T RIG LDLDIR #### [employer] [address] [place] [address] Community Facilitator: Reno Duron MD Potassium [Moles/Vol] 4.2 mmol/L Normal 3.7-5.3 [facility] Comment on above: Performed By: #### T RIG LDLDIR #### [employer] [address] [place] [address] Community Facilitator: Reno Duron MD Protein [Mass/Vol] 6.8 g/dL Normal 6.4-8.3 [facility] Comment on above: Performed By: #### T RIG LDLDIR #### [employer] [address] [place] [address] Community Facilitator: Reno Duron MD Sodium [Moles/Vol] 137 mmol/L Normal 135-144 [facility] Comment on above: Performed By: #### T RIG, LDLDIR #### [facility] [address] [place] [address] Community Facilitator: Reno Duron MD Urea nitrogen [Mass/Vol] 20 mg/dL Normal 6-20 [facility] Comment on above: Performed By: #### T RIG, LDLDIR #### [facility] [employer] [facility] [address] [place] [address] Community Facilitator: Reno Duron MD LDL Chol, Directon 4 LDL Chol, Direct 65 mg/dL Normal [facility] Comment on above: Performed By: #### T RIG, LDLDIR #### [address] [address] Community Facilitator: Reno Duron MD Lipaseon 02-08-2024 Lipase [Catalytic activity/Vol] 49 U/L Normal 13-60 [facility] Comment on above: Performed By: #### B 12FOL #### [facility] [address] [place] [address] Community Facilitator: Reno Duron MD Triglycerideson 02-08-2024 Triglyceride [Mass/Vol] 552 mg/dL High <150 [facility] Comment on above: Result Comment: Triglyceride Guidelines: <150 Desirable 150-199 Borderline 200-499 High >499 Very high Based on AHA Guidelines for fasting triglyceride, July 2012. Performed By: #### T RIG, LDLDIR #### [facility] [address] [place] [address] Community Facilitator: Reno Duron MD CBC with Diffon 02-07-2024 Abs. Basophil 0.03 k/uL Normal 0.00-0.20 [facility] Comment on above: Performed By: #### C P, CDP, LIP #### [facility] [address] [place] [address] Community Facilitator: Ziggy Hilario MD Abs. Eosinophil <0.03 Normal 0.00-0.44 [facility] Comment on above: Performed By: #### C P, CDP, LIP #### [facility] [address] [place] [address] [place], [place] [phone] Community Facilitator: Ziggy Hilario MD Abs.Imm.Granulocyte 0.26 k/uL Normal 0.00-0.30 [facility] Comment on above: Performed By: #### C P, CDP, LIP #### [facility] [address] [place] [address] [place], [place] [phone] Community Facilitator: Ziggy Hilario MD Abs.Neutrophil (Seg) 11.64 k/uL High 1.50-8.10 [facility] Comment on above: Performed By: #### C P, CDP, LIP #### [facility] [address] [place] [address] [place] [phone] Community Facilitator: Ziggy Hilario MD Basophils/100 WBC (Bld) 0 % Normal 0-2 [facility] Comment on above: Performed By: #### C P, CDP, LIP #### [address] [place], [place] [phone] Community Facilitator: Ziggy Hilario MD Eosinophils/100 WBC (Bld) 0 % Low 1-4 [facility] Comment on above: Performed By: #### C P, CDP, LIP #### [facility] [address] [place] [address] Dr. [place], [place] [phone] Community Facilitator: Ziggy Hilario MD Erythrocyte distribution width (RBC) [Ratio] 12.0 % Normal 11.8-14.4 [facility] Comment on above: Performed By: #### C P, CDP, LIP #### [address] [place], [place] [phone] Community Facilitator: Ziggy Hilario MD Hematocrit (Bld) [Volume fraction] 41.7 % Normal 40.7-50.3 [facility] Comment on above: Performed By: #### C P, CDP, LIP #### [facility] [address] [place] [address] Community Facilitator: Ziggy Hilario MD Hemoglobin (Bld) [Mass/Vol] 14.2 g/dL Normal 13.0-17.0 [facility] Comment on above: Performed By: #### C P, CDP, LIP #### [facility] [address] [place] [address] Dr. [place], [facility]83 Community Facilitator: Ziggy Hilario MD Immature granulocytes/100 WBC (Bld) 2 % High 0 [facility] Comment on above: Performed By: #### C P, CDP, LIP #### [address] [place], [facility]83 Community Facilitator: Ziggy Hilario MD Lymphocytes (Bld) [#/Vol] 1.67 10*3/uL Normal 1.10-3.70 [facility] Comment on above: Performed By: #### C P, CDP, LIP #### [address] [place], [facility]83 Community Facilitator: Ziggy Hilario MD Lymphocytes/100 WBC (Bld) 11 % Low 24-43 [facility] Comment on above: Performed By: #### C P, CDP, LIP #### [address] [place], [facility]83 Community Facilitator: Ziggy Hilario MD MCH (RBC) [Entitic mass] 28.8 pg Normal 25.2-33.5 [facility] Comment on above: Performed By: #### C P, CDP, LIP #### [address] [place] [address] Community Facilitator: Ziggy Hilario MD MCHC (RBC) [Mass/Vol] 34.1 g/dL Normal 28.4-34.8 [facility] Comment on above: Performed By: #### C P, CDP, LIP #### [facility] [address] [place], [place] [phone] Community Facilitator: Ziggy Hilario MD MCV (RBC) [Entitic vol] 84.6 fL Normal 82.6-102.9 [facility] Comment on above: Performed By: #### C P, CDP, LIP #### [facility] [address] [place], [facility]83 Community Facilitator: Ziggy Hilario MD Monocytes (Bld) [#/Vol] 1.35 10*3/uL High 0.10-1.20 [facility] Comment on above: Performed By: #### C P, CDP, LIP #### [address] [place], [facility]83 Community Facilitator: Ziggy Hilario MD Monocytes/100 WBC (Bld) 9 % Normal 3-12 [facility] Comment on above: Performed By: #### C P, CDP, LIP #### [address] [place], [facility]83 Community Facilitator: Ziggy Hilario MD Neutrophil (Seg) 78 % High 36-65 [facility] Comment on above: Performed By: #### C P, CDP, LIP #### [address] [place], [facility]83 Community Facilitator: Ziggy Hilario MD NRBC Automated 0.0 per 100 WBC Normal 0.0 [facility] Comment on above: Performed By: #### C P, CDP, LIP #### [address] [place], [facility]83 Community Facilitator: Ziggy Hilario MD Platelet mean volume (Bld) [Entitic vol] 9.1 fL Normal 8.1-13.5 [facility] Comment on above: Performed By: #### C P, CDP, LIP #### [address] [place], [place] [phone] Community Facilitator: Ziggy Hilario MD Platelets (Bld) [#/Vol] 291 10*3/uL Normal 138-453 [facility] Comment on above: Performed By: #### C P, CDP, LIP #### [facility] [address] [place] [address] Dr. [place], [place] [phone] Community Facilitator: Ziggy Hilario MD RBC (Bld) [#/Vol] 4.93 10*6/uL Normal 4.21-5.77 [facility] Comment on above: Performed By: #### C P, CDP, LIP #### [address] [place], [place] [phone] Community Facilitator: Ziggy Hilario MD WBC (Bld) [#/Vol] 15.0 10*3/uL High 3.5-11.3 [facility] Comment on above: Performed By: #### C P, CDP, LIP #### [address] [place], [place] [phone] Community Facilitator: Ziggy Hilario MD CT ABDOMEN PELVIS W [...] Eder Jefferson MD 02/07/24 Final result Normal [facility] Comp Metabolic Profon 2023 Albumin [Mass/Vol] 4.4 g/dL Normal 3.5-5.2 [facility] Comment on above: Performed By: #### C P, CDP, LIP #### [facility] [address] [place] [address] Community Facilitator: Ziggy Hilario MD Albumin/Glob Ratio 1.4 Normal 1.0-2.5 [facility] Comment on above: Performed By: #### C P, CDP, LIP #### [facility] [address] [place] [address] Community Facilitator: Ziggy Hilario MD Alkaline Phos 157 U/L High 40-129 [facility] Comment on above: Performed By: #### C P, CDP, LIP #### [facility] [address] [place], [place] [phone] Community Facilitator: Ziggy Hilario MD ALT [Catalytic activity/Vol] 337 U/L High 5-41 [facility] Comment on above: Performed By: #### C P, CDP, LIP #### [facility] [address] [place], [place] 8023283 Community Facilitator: Ziggy Hilario MD Anion gap [Moles/Vol] 12 mmol/L Normal 9-17 [facility] Comment on above: Performed By: #### C P, CDP, LIP #### [facility] [address] [place], [place] [phone] Community Facilitator: Ziggy Hilario MD AST [Catalytic activity/Vol] 403 U/L High <40 [facility] Comment on above: Performed By: #### C P, CDP, LIP #### [facility] [address] [place], [place] 4574583 Community Facilitator: Ziggy Hilario MD Bilirubin [Mass/Vol] 1.1 mg/dL Normal 0.3-1.2 [facility] Comment on above: Performed By: #### C P, CDP, LIP #### [facility] [address] [place], [place] [phone] Community Facilitator: Ziggy Hilario MD BUN/CRE Ratio 27 High 9-20 [facility] Comment on above: Performed By: #### C P, CDP, LIP #### [facility] [address] [place], [place] [phone] Community Facilitator: Ziggy Hilario MD Calcium [Mass/Vol] 9.9 mg/dL Normal 8.6-10.4 [facility] Comment on above: Performed By: #### C P, CDP, LIP #### [facility] [address] [place] [address] Community Facilitator: Ziggy Hilario MD Chloride [Moles/Vol] 93 mmol/L Low 98-107 [facility] Comment on above: Performed By: #### C P, CDP, LIP #### [facility] [address] [place] [address] Community Facilitator: Ziggy Hilario MD CO2 [Moles/Vol] 29 mmol/L Normal 20-31 [facility] Comment on above: Performed By: #### C P, CDP, LIP #### [facility] [address] [place] [address] Community Facilitator: Ziggy Hilario MD Creatinine [Mass/Vol] 0.9 mg/dL Normal 0.7-1.2 [facility] Comment on above: Performed By: #### C P, CDP, LIP #### [facility] [address] [place] [address] Community Facilitator: Ziggy Hilario MD GFR/1.73 sq M.predicted among non-blacks MDRD (S/P/Bld) [Vol rate/Area] mL/min/{1.73_m2} Normal >60 [facility] Comment on above: Result Comment: These [...] By: #### C P, CDP, LIP #### [facility] [address] [place] [address] Community Facilitator: Ziggy Hilario MD Glucose [Mass/Vol] 181 mg/dL High 70-99 [facility] Comment on above: Performed By: #### C P, CDP, LIP #### [facility] [address] [place] [address] Community Facilitator: Ziggy Hilario MD Potassium [Moles/Vol] 4.2 mmol/L Normal 3.7-5.3 [facility] Comment on above: Performed By: #### C P, CDP, LIP #### [facility] [address] [place], [place] [phone] Community Facilitator: Ziggy Hilario MD Protein [Mass/Vol] 7.5 g/dL Normal 6.4-8.3 [facility] Comment on above: Performed By: #### C P, CDP, LIP #### [facility] [address] [place], [place] [phone] Community Facilitator: Ziggy Hilario MD Sodium [Moles/Vol] 134 mmol/L Low 135-144 [facility] Comment on above: Performed By: #### C P, CDP, LIP #### [address] [place], [place] 9819583 Community Facilitator: Ziggy Hilario MD Urea nitrogen [Mass/Vol] 24 mg/dL High 6-20 [facility] Comment on above: Performed By: #### C P, CDP, LIP #### [address] [place], [place] [phone] Community Facilitator: Ziggy Hilario MD Hepatitis Acute [facility] 02-06 Hep A Ab,IgM Non-Reactive Normal [facility] Comment on above: Performed By: #### P HEP #### [address] [address] Community Facilitator: Reno Duron MD Hep B Core Ab,IgM Non-Reactive Normal [facility] Comment on above: Performed By: #### P HEP #### [facility] [address] [place] [address] Community Facilitator: Reno Duron MD Hep B Surf Ag Non-Reactive Normal [facility] Comment on above: Performed By: #### P HEP #### [address] [address] Community Facilitator: Reno Duron MD Hep C Ab Non-Reactive Normal NR [facility] Comment on above: Result Comment: The [...] PCR. Performed By: #### P HEP #### [facility] [address] [place] [address] Community Facilitator: Reno Duron MD Lactic Acidon 02-07-2024 Lactate [Moles/Vol] 1.7 mmol/L Normal 0.5-2.2 [facility] Comment on above: Performed By: #### T RIG, LDLDIR #### [facility] [address] [place] [address] Community Facilitator: Reno Duron MD Lipaseon 02-07-2024 Lipase [Catalytic activity/Vol] 2280 U/L Critically high 13-60 [facility] Comment on above: Performed By: #### U MICAO, UAX #### [facility] [address] [place] [address] Community Facilitator: Ziggy Hilario MD US ABDOMEN LIMITEDon 024 [...] Eder Jefferson MD 02/07/24 Final result Normal [facility] XR CHEST (2 VW)on 02-01-2024 XR [...] Mateo Aguilar MD 02/01/24 Final result Normal [facility] Benzodiazepines Screen Ql (U )on 01-21-2024 Benzodiazepines Ql (U) Negative Normal NEG [facility] Comment on above: Result Comment: Leon odiazepines screening cut off value = 200 ng/mL This report is intended for use in clinical monitoring or management of patients. Performed By: #### 1 [id number] #### [facility] ([id number]) [address] [place] [address], [address] [place] [address] CCL GENERIC ORDERon 01-21-20 TEST NAME UQNTPP QUANTITATIVE PAIN PANEL, URINE Normal [facility] Comment on above: Performed By: #### C GO #### [facility] ([id number]) [address] [place] [address] TEST RESULT See Below Normal [facility] Comment on above: Result Comment: NOTE TEST RESULT FLAG UNIT REF.RANGE ----- Specimen Validity Quality See below Specimen quality results within acceptable limits Specimen Validity Creatinine 16.2 L mg/dL 20.0-300.0 Specimen Validity PH 6.6 4.5-8.0 Specimen Validity Specific [place] 1.005 1.003-1.035 Specimen Validity Oxidants <38 mg/L [...] carboxylic acid (THCA) is a metabolite of sbkzo-2-idzbgpqocxsbjcyowpql which is the main active component of marijuana. Fentanyl, Urine <6 ng/mL <6 Buprenorphine, Ur <20 ng/mL <20 Methadone Urine <16 ng/mL <16 Methadone metabolite Urine <6 ng/mL <6 EDDP is a metabolite of methadone. Note See Below This test is for medical use only. This test was developed and its performance characteristics determined by [facility] [place] ([facility]). It has not been cleared or approved by the FDA. [facility] is regulated under CLIA as qualified to perform high-complexity testing. This test is used for clinical purposes. It should not be regarded as investigational or for research. QUANTITATIVE PAIN PANEL, URINE Test Performed By: [facility] [address] [place] [address] Federal Air Marshal: Yakov Gurrola III, M.D. [place] #[id number] Performed By: #### C GO #### [facility] ([id number]) [address] [place] [address] Laboratory comment Jacinto (Jodie rt)on 01-21-2024 UNLISTED LAB TEST Sent to reference lab Normal [facility] Comment on above: Performed By: #### C GO #### [facility] ([id number]) [address] [place], [place] [id number] Glucose Glucometer (BldC) [M ass/Vol]on 01-14-2024 Glucose [Mass/Vol] 91 mg/dL Normal 65-99 [facility] Lupus Anticoagulanton 2023 Dilute Santhosh Viper Negative Normal NLUP [facility] Comment on above: Performed By: #### T RIG, LDLDIR #### [place] [address] Community Facilitator: Reno Duron MD Lupus Anticoagulanton 2023 Anticardiolipin IgM 1.3 MPL Normal 0.0-10.0 [facility] Comment on above: Result Comment: Reference Range: <10.0 Negative 10.0-40.0 Equivocal >40.0 Positive Performed By: #### Chantell RÍOS LDLDIR #### [facility] [address] [place] [id number] Community Facilitator: Reno Duron MD Anticardiolipin IgA 6.0 APL Normal 0.0-14.0 [facility] Comment on above: Result Comment: Reference Range: <14.0 Negative 14.0-20.0 Equivocal >20.0 Positive When results are Equivocal, it is recommended to retest after 4-6 weeks. Performed By: #### Chantell RÍOS LDLDIR #### [facility] [employer] [address] [place] [address] [phone] Community Facilitator: Reno Duron MD Anticardiolipin IgG 1.2 GPL Normal 0.0-10.0 [facility] Comment on above: Result Comment: Reference Range: <10.0 Negative 10.0-40.0 Equivocal >40.0 Positive Performed By: #### Chantell RÍOS LDLDIR #### [facility] [employer] [address] [place] [address] [phone] Community Facilitator: Reno Duron MD Ironon 11-30-2023 Iron [Mass/Vol] 95 ug/dL 59 - 158 ug/dL [facility] Iron [Mass/Vol] 95 ug/dL Normal 59-158 [facility] Comment on above: Performed By: #### Chantell RÍOS LDLDIR #### [facility] [address] [place] [address] [phone] Community Facilitator: Reno Duron MD Lupus Anticoagulanton 2023 aPTT Coag (Bld) [Time] 28.1 s Normal 26.8-34.8 [facility] Comment on above: Result Comment: IV Heparin Therapy Range: 62.0-94.0 Performed By: #### Chantell RÍOS LDLDIR #### [facility] [address] [place] [address] [phone] Community Facilitator: Reno Duron MD INR Coag (PPP) [Relative time] 1.0 {INR} Normal [facility] Comment on above: Result Comment: Therapeutic Range: Moderate Anticoagulant Intensity: INR = 2.0-3.0 High Anticoagulant Intensity: INR = 2.5-3.5 Performed By: #### T KHUSHBU LDLDIR #### [facility] [address] [place] [address] Community Facilitator: Reno Duron MD PT Coag (PPP) [Time] 13.2 s Normal 11.9-14.8 [facility] Comment on above: Performed By: #### T KHUSHBU LDLDIR #### [facility] [address] [place], [place] [phone] Community Facilitator: Reno Duron MD Microscopic Urinalysison Bacteria LM Ql (Urine sed) TRACE Abnormal None [facility] Epithelial cells LM.HPF (Urine sed) [#/Area] None [facility] Interpretation and review of laboratory results Abnormal [facility] RBC LM.HPF (Urine sed) [#/Area] None [facility] WBC LM.HPF (Urine sed) [#/Area] None [facility] No Panel Informationon 11-30 [facility] UA w/Reflex Cultureon 2023 Bilirubin, SemiQt,Ur Negative Normal NEG [facility] Comment on above: Performed By: #### U REBEKA UAX #### [facility] [address] [place] [address] Community Facilitator: Ziggy Hilario MD Blood, Urine Negative Normal NEG [facility] Comment on above: Performed By: #### U REBEKA UAX #### [facility] [address] [place] [address] Community Facilitator: Ziggy Hilario MD Clarity (U) Clear Normal CLEAR [facility] Comment on above: Performed By: #### U MICAO, UAX #### [facility] [address] [place], [place] [id number] Community Facilitator: Ziggy Hilario MD Color (U) Yellow Normal YEL [facility] Comment on above: Performed By: #### U MICAO, UAX #### [facility] [address] [place], [place] [phone] Community Facilitator: Ziggy Hilario MD Glucose Ql (U) Negative Normal NEG [facility] Comment on above: Performed By: #### U MICAO, UAX #### [address] [place], [place] [phone] Community Facilitator: Ziggy Hilario MD Ketones Ql (U) Negative Normal NEG [facility] Comment on above: Performed By: #### U MICAO, UAX #### [facility] [address] [place] [address] Dr. [place], [place] [phone] Community Facilitator: Ziggy Hilario MD Leukocyte esterase Test strip Ql (U) Negative Normal NEG [facility] Comment on above: Performed By: #### U MICAO, UAX #### [address] [place], [place] [phone] Community Facilitator: Ziggy Hilario MD Nitrite,Ur Negative Normal [facility] Comment on above: Performed By: #### U MICAO, UAX #### [facility] [address] [place] [address] Dr. [place], [place] [phone] Community Facilitator: Ziggy Hilario MD PH,Ur 6.0 Normal 5.0-9.0 [facility] Comment on above: Performed By: #### U MICAO, UAX #### [address] [place], [place] [phone] Community Facilitator: Ziggy Hilario MD Protein Ql (U) Negative Normal NEG [facility] Comment on above: Performed By: #### U MICAO, UAX #### [facility] [address] [place] [address] Community Facilitator: Ziggy Hilario MD Spec. [place],Ur <1.005 Low 1.010-1.020 [facility] Comment on above: Performed By: #### U MICAO, UAX #### [facility] [address] [place] [address] Community Facilitator: Ziggy Hilario MD Urobilinogen,Ur Normal Normal 0.0-1.0 [facility] Comment on above: Performed By: #### U MICAO, UAX #### [facility] [address] [place] [address] Community Facilitator: Ziggy Hilario MD Urinalysis with Reflex to Cu ltureon 11-30-2023 Bilirubin Ql (U) Negative NEGATIVE [facility] Clarity (U) Clear Clear [facility] Color (U) Yellow Yellow [facility] Glucose Test strip (U) [Mass/Vol] Negative NEGATIVE mg/dL [facility] Hemoglobin Auto test strip Ql (U) Negative NEGATIVE [facility] Interpretation and review of laboratory results Abnormal [facility] Ketones (U) [Mass/Vol] Negative NEGATIVE mg/dL [facility] Leukocyte esterase Test strip Ql (U) Negative NEGATIVE [facility] Nitrite Ql (U) Negative NEGATIVE [facility] pH (U) 6.0 [pH] 5.0 - 9.0 [facility] Protein (U) [Mass/Vol] Negative NEGATIVE mg/dL [facility] Specific gravity (U) [Rel density] Low 1.010 - 1.020 [facility] Urobilinogen Qn (U) Normal 0.0 - 1. 0 EU/dL [facility] Urinalysis,Microon 4 Bacteria TRACE Abnormal NONE [facility] Comment on above: Performed By: #### U MICAO, UAX #### [facility] [address] [place], [place] [phone] Community Facilitator: Ziggy Hilario MD Epithelial cells LM Ql (Urine sed) None Normal 0-5 [facility] Comment on above: Performed By: #### U REBEKA, UAX #### [facility] [address] [place] [phone] Community Facilitator: Ziggy Hilario MD Urine RBC's None Normal 0-2 [facility] Comment on above: Performed By: #### U REBEKA, UAX #### [facility] [address] [place] [phone] Community Facilitator: Ziggy Hilario MD Urine WBC's None Normal 0-5 [facility] Comment on above: Performed By: #### U REBEKA, UAX #### [facility] [address] [place] [address] Community Facilitator: Ziggy Hilario MD Vitamin D 25 Hydroxyon 11-30 25-hydroxyvitamin D3 [Mass/Vol] 80.7 ng/mL 29.9 - PINF ng/mL [facility] Comment on above: Reference Range: Vitamin D status Range Deficiency <20 ng/mL Mild Deficiency 20-30 ng/mL Sufficiency 30-100 ng/mL Toxicity >100 ng/mL Vitamin D 25 OHon 11-30-2023 Vitamin D 25 OH 80.7 ng/mL Normal >29.9 [facility] Comment on above: Result Comment: Reference Range: Vitamin D status Range Deficiency <20 ng/mL Mild Deficiency 20-30 ng/mL Sufficiency 30-100 ng/mL Toxicity >100 ng/mL Performed By: #### T KHUSHBU LDLDIR #### [facility] [address] [place] [address] Community Facilitator: Reno Duron MD Basic Metabolic Profon 10-07 Anion gap [Moles/Vol] 10 mmol/L Normal - [facility] Comment on above: Performed By: #### Chantell RÍOS LDLDIR #### [facility] [address] [place] [address] Community Facilitator: Reno Duron MD BUN/CRE Ratio 18 Normal 9-20 [facility] Comment on above: Performed By: #### T RIG, LDLDIR #### [address] [place] [address] Community Facilitator: Reno Duron MD Calcium [Mass/Vol] 9.8 mg/dL Normal 8.6-10.4 [facility] Comment on above: Performed By: #### T RIG LDLDIR #### [address] [address] Community Facilitator: Reon Duron MD Chloride [Moles/Vol] 99 mmol/L Normal 98-107 [facility] Comment on above: Performed By: #### T RIG LDLDIR #### [address] [address] Community Facilitator: Reno Duron MD CO2 [Moles/Vol] 28 mmol/L Normal 20-31 [facility] Comment on above: Performed By: #### T RIG LDLDIR #### [address] [address] Community Facilitator: Reno Duron MD Creatinine [Mass/Vol] 1.0 mg/dL Normal 0.7-1.2 [facility] Comment on above: Performed By: #### T RIG LDLDIR #### [address] [address] Community Facilitator: Reno Duron MD GFR/1.73 sq M.predicted among non-blacks MDRD (S/P/Bld) [Vol rate/Area] mL/min/{1.73_m2} Normal >60 [facility] Comment on above: Result Comment: These [...] renal tubular secretion. Performed By: #### T KHUSHBU LDLDIR #### [facility] [address] [place] [address] Community Facilitator: Reno Duron MD Glucose [Mass/Vol] 100 mg/dL High 70-99 [facility] Comment on above: Performed By: #### T KHUSHBU LDLDIR #### [facility] [address] [place] [address] Community Facilitator: Reno Duron MD Potassium [Moles/Vol] 4.1 mmol/L Normal 3.7-5.3 [facility] Comment on above: Performed By: #### T KHUSHBU LDLDIR #### [address] [address] Community Facilitator: Reno Duron MD Sodium [Moles/Vol] 137 mmol/L Normal 135-144 [facility] Comment on above: Performed By: #### T KHUSHBU LDLDIR #### [address] [address] Community Facilitator: Reno Duron MD Urea nitrogen [Mass/Vol] 18 mg/dL Normal 6-20 [facility] Comment on above: Performed By: #### T KHUSHBU LDLDIR #### [facility] [address] [place] [address] Community Facilitator: Reno Duron MD CBC with Diffon 10-07-2023 Abs. Basophil 0.05 k/uL Normal 0.00-0.20 [facility] Comment on above: Performed By: #### T KHUSHBU LDLDIR #### [facility] [address] [place] [address] Community Facilitator: Reno Duron MD Abs.Imm.Granulocyte 0.03 k/uL Normal 0.00-0.30 [facility] Comment on above: Performed By: #### T RIG LDLDIR #### [facility] [address] [place] [address] Community Facilitator: Reno Duron MD Abs.Neutrophil (Seg) 4.11 k/uL Normal 1.50-8.10 [facility] Comment on above: Performed By: #### T RIG, LDLDIR #### [facility] [address] [place] [address] Community Facilitator: Reno Duron MD Basophils/100 WBC (Bld) 1 % Normal 0-2 [facility] Comment on above: Performed By: #### T RIG, LDLDIR #### [facility] [address] [place] [address] Community Facilitator: Reno Duron MD Eosinophils (Bld) [#/Vol] 0.05 10*3/uL Normal 0.00-0.44 [facility] Comment on above: Performed By: #### T RIG, LDLDIR #### [facility] [address] [place] [address] Community Facilitator: Reno Duron MD Eosinophils/100 WBC (Bld) 1 % Normal 1-4 [facility] Comment on above: Performed By: #### T RIG, LDLDIR #### [facility] [address] [place] [address] Community Facilitator: Reno Duron MD Erythrocyte distribution width (RBC) [Ratio] 11.9 % Normal 11.8-14.4 [facility] Comment on above: Performed By: #### T RIG, LDLDIR #### [facility] [address] [place] [address] Community Facilitator: Reno Duron MD Hematocrit (Bld) [Volume fraction] 40.2 % Low 40.7-50.3 [facility] Comment on above: Performed By: #### T RIG, LDLDIR #### [facility] [address] [place] [address] Community Facilitator: Reno Duron MD Hemoglobin (Bld) [Mass/Vol] 13.4 g/dL Normal 13.0-17.0 [facility] Comment on above: Performed By: #### T KHUSHBU LDLDIR #### [address] [address] Community Facilitator: Reno Duron MD Immature granulocytes/100 WBC (Bld) 1 % High 0 [facility] Comment on above: Performed By: #### T RIG LDLDIR #### [address] [address] Community Facilitator: Reno Duron MD Lymphocytes (Bld) [#/Vol] 1.72 10*3/uL Normal 1.10-3.70 [facility] Comment on above: Performed By: #### T KHUSHBU LDLDIR #### [address] [address] Community Facilitator: Reno Duron MD Lymphocytes/100 WBC (Bld) 27 % Normal 24-43 [facility] Comment on above: Performed By: #### T RIG LDLDIR #### [address] [address] Community Facilitator: Reno Duron MD MCH (RBC) [Entitic mass] 28.9 pg Normal 25.2-33.5 [facility] Comment on above: Performed By: #### T KHUSHBU LDLDIR #### [address] [address] Community Facilitator: Reon Duron MD MCHC (RBC) [Mass/Vol] 33.3 g/dL Normal 28.4-34.8 [facility] Comment on above: Performed By: #### T RIG LDLDIR #### [facility] [address] [place] [address] Community Facilitator: Reno Duron MD MCV (RBC) [Entitic vol] 86.6 fL Normal 82.6-102.9 [facility] Comment on above: Performed By: #### T RIG, LDLDIR #### [address] [address] Community Facilitator: Reno Duron MD Monocytes (Bld) [#/Vol] 0.54 10*3/uL Normal 0.10-1.20 [facility] Comment on above: Performed By: #### T RIG LDLDIR #### [address] [address] Community Facilitator: Reno Duron MD Monocytes/100 WBC (Bld) 8 % Normal 3-12 [facility] Comment on above: Performed By: #### T RIG LDLDIR #### [address] [address] Community Facilitator: Reno Duron MD Neutrophil (Seg) 62 % Normal 36-65 [facility] Comment on above: Performed By: #### T RIG LDLDIR #### [address] [address] Community Facilitator: Reno Duron MD NRBC Automated 0.0 per 100 WBC Normal 0.0 [facility] Comment on above: Performed By: #### T RIG, LDLDIR #### [address] [address] Community Facilitator: Reno Duron MD Platelet mean volume (Bld) [Entitic vol] 9.1 fL Normal 8.1-13.5 [facility] Comment on above: Performed By: #### T RIG LDLDIR #### [address] [address] Community Facilitator: Reno Duron MD Platelets (Bld) [#/Vol] 250 10*3/uL Normal 138-453 [facility] Comment on above: Performed By: #### T RIG, LDLDIR #### [address] [address] Community Facilitator: Reno Duron MD RBC (Bld) [#/Vol] 4.64 10*6/uL Normal 4.21-5.77 [facility] Comment on above: Performed By: #### T RIG, LDLDIR #### [facility] [address] [place] [address] Community Facilitator: Reno Duron MD WBC (Bld) [#/Vol] 6.5 10*3/uL Normal 3.5-11.3 [facility] Comment on above: Performed By: #### T RIG, LDLDIR #### [facility] [address] [place] [address] Community Facilitator: Reno Duron MD UA w/Reflex Cultureon 2022 Bilirubin, SemiQt,Ur Negative Normal NEG [facility] Comment on above: Performed By: #### T RIG LDLDIR #### [facility] [address] [place] [address] Community Facilitator: Reno Duron MD Blood, Urine Negative Normal NEG [facility] Comment on above: Performed By: #### T RIG LDLDIR #### [facility] [address] [place] [address] Community Facilitator: Reno Duron MD Clarity (U) Clear Normal CLEAR [facility] Comment on above: Performed By: #### T RIG, LDLDIR #### [facility] [address] [place] [address] Community Facilitator: Reno Duron MD Color (U) Yellow Normal YEL [facility] Comment on above: Performed By: #### T RIG, LDLDIR #### [facility] [address] [place] [address] Community Facilitator: Reno Duron MD Glucose Ql (U) Negative Normal NEG [facility] Comment on above: Performed By: #### T RIG, LDLDIR #### [facility] [address] [place] [address] Community Facilitator: Reno Duron MD Ketones Ql (U) Negative Normal NEG [facility] Comment on above: Performed By: #### T RIG, LDLDIR #### [facility] [address] [place] [address] Community Facilitator: Reno Duron MD Leukocyte esterase Test strip Ql (U) TRACE Abnormal NEG [facility] Comment on above: Performed By: #### T RIG, LDLDIR #### [facility] [address] [place] [address] Community Facilitator: Reno Duron MD Nitrite,Ur Negative Normal NEG [facility] Comment on above: Performed By: #### T RIG, LDLDIR #### [facility] [address] [place] [address] Community Facilitator: Reno Duron MD PH,Ur 6.0 Normal 5.0-9.0 [facility] Comment on above: Performed By: #### T RIG, LDLDIR #### [address] [address] Community Facilitator: Reno Duron MD Protein Ql (U) Negative Normal NEG [facility] Comment on above: Performed By: #### T RIG, LDLDIR #### [address] [address] Community Facilitator: Reno Duron MD Spec. [place],Ur <1.005 Low 1.010-1.020 [facility] Comment on above: Performed By: #### T RIG, LDLDIR #### [facility] [address] [place] [address] Community Facilitator: Reno Duron MD Urobilinogen,Ur Normal Normal 0.0-1.0 [facility] Comment on above: Performed By: #### T RIG, LDLDIR #### [facility] [address] [place] [address] Community Facilitator: Reno Duron MD Urinalysis,Microon 3 Epithelial cells LM Ql (Urine sed) 0 TO 2 Normal 0-5 [facility] Comment on above: Performed By: #### T RIG LDLDIR #### [facility] [address] [place] [address] Community Facilitator: Reno Duron MD Urine RBC's 0 TO 2 Normal 0-2 [facility] Comment on above: Performed By: #### T RIG LDLDIR #### [facility] [address] [place] [address] Community Facilitator: Reno Duron MD Urine WBC's 0 TO 2 Normal 0-5 [facility] Comment on above: Performed By: #### T RIG LDLDIR #### [facility] [address] [place] [address] Community Facilitator: Reno Duron MD Surgical Pathology Reporton 10-02-2023 Surgical Pathology Report (NOTE) Path Number: [id number] -- Diagnosis -- A. STOMACH, ANTRUM, BIOPSIES: [...] 0.3 x 0.2 cm. Entirely 1cs. C. ALIN LIGHT, ESOPHAGEAL BIOPSIES AT 38 CM Received in [...] x 0.4 x 0.2 cm. Entirely 1cs. jearlene tm RAMYA/kb2:10/02/2023 Microscopic Description A-E. Microscopic examination performed. Processing Lab: [address] [id number] Interpretation Performed at [address] [phone] SURGICAL PATHOLOGY CONSULTATION Patient Name: ALIN LIGHT Med Rec: [id number] [employer] [facility] ANATOMIC PATHOLOGY [address] [place] [phone] Normal [facility] C diff Ag + Toxinon 09-10-20 C diff Ag + Toxin Negative Normal NEG [facility] Comment on above: Result Comment: No C . difficile antigen and Toxin Detected. Performed By: #### T KHUSHBU LDLDIR #### [facility] [address] [place] [address] Community Facilitator: Reno Duron MD Specimen Description .FECES Normal [facility] Comment on above: Performed By: #### T RIG, LDLDIR #### [facility] [address] [place] [address] Community Facilitator: Reno Duron MD Nuclear stress test with justino cardial perfusionon 07-06-2023 Baseline Diastolic BP 80 mmHg [facility] Baseline HR 71 bpm [facility] Baseline Systolic BP 116 mmHg [facility] Nuc Stress EF 81 % [facility] Recovery Stage 1 BP 120/74 mmHg [facility] Recovery Stage 1 Duration 0 min:sec [facility] Recovery Stage 1 HR 98 bpm [facility] Recovery Stage 2 Duration 1 min:sec [facility] Recovery Stage 2 HR 83 bpm [facility] Recovery Stage 3 Duration 3 min:sec [facility] Recovery Stage 3 HR 75 bpm [facility] Recovery Stage 4 BP 114/68 mmHg [facility] Recovery Stage 4 Duration 5 min:sec [facility] Recovery Stage 4 HR 71 bpm [facility] Stress Diastolic BP 74 mmHg [facility] Stress Peak HR 100 bpm [facility] Stress Percent HR Achieved 60 % [facility] Stress Rate Pressure Product 40698 bpm*mmHg [facility] Stress Systolic BP 120 mmHg [facility] Stress Target HR 167 [...] stress end diastolic cavity size is normal. [facility] CV RPACS STRESS [facility] Nuclear stress test with justino cardial perfusionon 07-05-2023 Radiology Study observation (narrative) [facility] [employer] [facility] XR CHEST (2 VW)on 12-09-2019 XR CHEST [...] Kp Bhatia MD 12/09/19 Final result Normal [facility] XR HIP 2-3 VW W PELVIS RIGHT [...] Octavio Seymour MD 11/17/19 Final result Normal [facility] XR KNEE RIGHT (MIN 4 VIEWS)o n [...] Octavio Seymour MD 11/17/19 Final result Normal [facility] Vital Signs Date Time Vital Sign Value Performing Clinician Facility 09-05-2024 18:28-0500 Body mass index (BMI) [Ratio] 30.71 kg/m2 Dariusz Lambert MD Work Phone: [facility] 09-05-2024 18:28-0500 Body temperature 99.7 [degF] Dariusz Lambert MD Work Phone: [facility] 09-05-2024 18:28-0500 Body weight 97.07 kg Dariusz Lambert MD Work Phone: [facility] 09-05-2024 18:28-0500 Diastolic blood pressure 90 mm[Hg] Dariusz Lambert MD Work Phone: [facility] 09-05-2024 18:28-0500 Heart rate 95 /min Dariusz Lambert MD Work Phone: [facility] 09-05-2024 18:28-0500 Respiratory rate 16 /min Dariusz Lambert MD Work Phone: [facility] 09-05-2024 18:28-0500 SaO2% (BldA) [Mass fraction] 95 % Dariusz Lambert MD Work Phone: [facility] 09-05-2024 18:28-0500 Systolic blood pressure 136 mm[Hg] Dariusz Lambert MD Work Phone: [facility] 08-28-2024 17:33-0500 SaO2% (BldA) [Mass fraction] 100 % KAJAL STEWART [facility] Comment on above: Order Comment: Specimen Type: ARTERIAL B LOOD SPECIMENOrdering Facility: [facility] Address: [address] [place] [address] Performed By: #### A LLBG ####[facility] [id number] [facility] [id number] [place] 08-28-2024 16:01-0500 SaO2% (BldA) [Mass fraction] 100 % KAJAL CORCORANIVANTin [facility] Comment on above: Order Comment: Specimen Type: ARTERIAL B LOOD SPECIMENOrdering Facility: [facility] Address: [address] [place] [address] Performed By: #### A LLMG ####[facility] [id number] [address] OF [facility] 08-28-2024 14:06-0500 SaO2% (BldA) [Mass fraction] 99 % KAJAL CORCORANCAITLYN [facility] Comment on above: Order Comment: Specimen Type: ARTERIAL B LOOD SPECIMENOrdering Facility: [facility] Address: [address] [place] [address] Performed By: #### A LLMG ####[facility] [id number] [address] OF [facility] 08-22-2024 11:24-0400 Body height 177.8 cm Pac 7 Work Phone: [facility] 08-22-2024 11:24-0400 Body mass index (BMI) [Ratio] 30.37 kg/m2 Pac 7 Work Phone: [facility] 08-22-2024 11:24-0400 Body temperature 98.29 [degF] Pac 7 Work Phone: [facility] 08-22-2024 11:24-0400 Body weight 96 kg Pac 7 Work Phone: [facility] 08-22-2024 11:24-0400 Diastolic blood pressure 78 mm[Hg] Pac 7 Work Phone: [facility] 08-22-2024 11:24-0400 Heart rate 78 /min Pac 7 Work Phone: [facility] 08-22-2024 11:24-0400 SaO2% (BldA) [Mass fraction] 98 % Pac 7 Work Phone: [facility] 08-22-2024 11:24-0400 Systolic blood pressure 125 mm[Hg] Pacc 7 Work Phone: [facility] 08-11-2024 11:56-0400 Body height 177.8 cm Kristyn Miller MD Work Phone: [facility] [employer] 08-11-2024 11:56-0400 Body mass index (BMI) [Ratio] 30.71 kg/m2 Kristyn Miller MD Work Phone: [facility] [employer] 08-11-2024 11:56-0400 Body temperature 98.2 [degF] Kristyn Miller MD Work Phone: [facility] [employer] 08-11-2024 11:56-0400 Body weight 97.07 kg Kristyn Miller MD Work Phone: [facility] [employer] 08-11-2024 11:56-0400 Diastolic blood pressure 82 mm[Hg] Kristyn Ring Work Phone: [employer] 08-11-2024 11:56-0400 Heart rate 68 /min Kristyn Miller MD Work Phone: [facility] [employer] 08-11-2024 11:56-0400 Respiratory rate 16 /min Kristyn Miller MD Work Phone: [facility] [employer] 08-11-2024 11:56-0400 SaO2% (BldA) [Mass fraction] 97 % Kristyn Miller MD Work Phone: [employer] 08-11-2024 11:56-0400 Systolic blood pressure 140 mm[Hg] Kristyn Miller MD Work Phone: [employer] 08-08-2024 13:21-0400 Body temperature 97.7 [degF] Eliana Springer APRN - RAMSEY Work Phone: [employer] 08-08-2024 13:21-0400 Diastolic blood pressure 79 mm[Hg] Eliana Springer APRN - RAMSEY Work Phone: [employer] 08-08-2024 13:21-0400 Heart rate 87 /min Eliana Gian [employer] MEDICAL COLLECTIONS SPECIALIST Work Phone: [facility] [employer] 08-08-2024 13:21-0400 Respiratory rate 16 /min [facility] [employer] [facility] Work Phone: [facility] [employer] 08-08-2024 13:21-0400 SaO2% (BldA) [Mass fraction] 97 % [facility] [employer] MEDICAL COLLECTIONS SPECIALIST Work Phone: [facility] [employer] 08-08-2024 13:21-0400 Systolic blood pressure 129 mm[Hg] Eliana Gian [employer] MEDICAL COLLECTIONS SPECIALIST Work Phone: [facility] [employer] 08-05-2024 17:30-0400 Body height 177.8 cm Sofia Smith MD Work Phone: [employer] 08-05-2024 17:30-0400 Body mass index (BMI) [Ratio] 30.71 kg/m2 Sofia Smith MD Work Phone: [employer] 08-05-2024 17:30-0400 Body temperature 98.2 [degF] Sofia Smith MD Work Phone: [employer] 08-05-2024 17:30-0400 Body weight 97.07 kg Sofia Smith MD Work Phone: [employer] 08-05-2024 17:30-0400 Diastolic blood pressure 82 mm[Hg] Sofia Smith MD Work Phone: [employer] 08-05-2024 17:30-0400 Heart rate 84 /min Sofia Smith MD Work Phone: [employer] 08-05-2024 17:30-0400 Respiratory rate 16 /min Sofia Smith MD Work Phone: [employer] 08-05-2024 17:30-0400 SaO2% (BldA) [Mass fraction] 95 % Sofia Smith MD Work Phone: [facility] 08-05-2024 17:30-0400 Systolic blood pressure 133 mm[Hg] Sofia Smith MD Work Phone: [facility] 07-28-2024 08:50-0400 Diastolic blood pressure 69 mm[Hg] Sheyla Mensah MD Work Phone: [facility] 07-28-2024 08:50-0400 Heart rate 54 /min Sheyla Mensah MD Work Phone: [facility] 07-28-2024 08:50-0400 Respiratory rate 16 /min Sheyla Mensah MD Work Phone: [facility] 07-28-2024 08:50-0400 SaO2% (BldA) [Mass fraction] 98 % Sheyla Mensah MD Work Phone: [facility] 07-28-2024 08:50-0400 Systolic blood pressure 115 mm[Hg] Sheyla Ring Work Phone: [facility] 07-28-2024 08:24-0400 Body temperature 97.5 [degF] Sheyla Mensah MD Work Phone: [facility] 07-28-2024 07:36-0400 Body height 177.8 cm Sheyla Mensah MD Work Phone: [facility] 07-28-2024 07:36-0400 Body mass index (BMI) [Ratio] 30.71 kg/m2 Sheyla Mensah MD Work Phone: [facility] 07-28-2024 07:36-0400 Body weight 97.07 kg Sheyla Mensah MD Work Phone: [facility] 07-22-2024 14:36-0400 Body temperature 97.7 [degF] SARAH Jacobson MD Work Phone: [facility] 07-22-2024 14:36-0400 Body weight 97.5 kg SARAH Jacobson MD Work Phone: [facility] 07-22-2024 14:36-0400 Diastolic blood pressure 83 mm[Hg] SARAH Jacobson MD Work Phone: [facility] 07-22-2024 14:36-0400 Heart rate 79 /min SARAH Jacobson MD Work Phone: [facility] 07-22-2024 14:36-0400 Respiratory rate 20 /min SARAH Jacobson MD Work Phone: [facility] 07-22-2024 14:36-0400 SaO2% (BldA) [Mass fraction] 98 % SARAH Jacobson MD Work Phone: [facility] 07-22-2024 14:36-0400 Systolic blood pressure 146 mm[Hg] SARAH Jacobson MD Work Phone: [facility] 04-26-2024 11:33-0400 Body temperature 98.29 [degF] Max Delong Jr., MD Work Phone: [facility] [employer] 04-26-2024 11:33-0400 Diastolic blood pressure 87 mm[Hg] Max London MD Work Phone: [facility] 04-26-2024 11:33-0400 Heart rate 78 /min Max Delong Jr., MD Work Phone: [facility] 04-26-2024 11:33-0400 Respiratory rate 18 /min Max Delong Jr., MD Work Phone: [facility] [employer] 04-26-2024 11:33-0400 SaO2% (BldA) [Mass fraction] 99 % Max Delong Jr., MD Work Phone: [facility] [employer] 04-26-2024 11:33-0400 Systolic blood pressure 131 mm[Hg] Max Delong Jr., MD Work Phone: [facility] [employer] 03-17-2024 16:15-0400 Diastolic blood pressure 59 mm[Hg] eTgan Jay Work Phone: [facility] [employer] 03-17-2024 16:15-0400 Heart rate 57 /min Tegan Hutchins DO Work Phone: [facility] 03-17-2024 16:15-0400 Respiratory rate 13 /min Tegan Hutchins DO Work Phone: [facility] 03-17-2024 16:15-0400 SaO2% (BldA) [Mass fraction] 96 % Tegan Hutchins DO Work Phone: [facility] 03-17-2024 16:15-0400 Systolic blood pressure 117 mm[Hg] Tegan Hutchins DO Work Phone: [facility] 03-17-2024 13:56-0400 Body height 177.8 cm Tegan Hutchins DO Work Phone: [facility] 03-17-2024 13:56-0400 Body mass index (BMI) [Ratio] 30.56 kg/m2 Tegan Hutchins DO Work Phone: [facility] 03-17-2024 13:56-0400 Body temperature 98.4 [degF] Tegan Galvanbal DO Work Phone: [facility] 03-17-2024 13:56-0400 Body weight 96.62 kg Tegan Galvanbal DO Work Phone: [facility] 01-21-2024 13:08-0400 Body height 177.8 cm Joana Stratton MD Work Phone: [facility] [employer] [facility] 01-21-2024 13:08-0400 Body mass index (BMI) [Ratio] 29.41 kg/m2 Joana Stratton MD Work Phone: [facility] [employer] [facility] 01-21-2024 13:08-0400 Body weight 92.99 kg Joana Stratton MD Work Phone: [facility] [employer] [facility] 01-21-2024 13:08-0400 Diastolic blood pressure 77 mm[Hg] Joana Ring Work Phone: [facility] [employer] [facility] 01-21-2024 13:08-0400 Heart rate 73 /min Joana Stratton MD Work Phone: [facility] [employer] [facility] 01-21-2024 13:08-0400 Respiratory rate 16 /min Joana Stratton MD Work Phone: [facility] 01-21-2024 13:08-0400 Systolic blood pressure 124 mm[Hg] Joana Stratton MD Work Phone: [facility] [employer] [facility] 12-24-2023 12:46-0500 Body height 177.8 cm Joana Stratton MD Work Phone: [facility] 12-24-2023 12:46-0500 Body mass index (BMI) [Ratio] 29.41 kg/m2 Joana Stratton MD Work Phone: [facility] [employer] [facility] 12-24-2023 12:46-0500 Body weight 92.99 kg Joana Stratton MD Work Phone: [facility] [employer] [facility] 12-24-2023 12:46-0500 Diastolic blood pressure 85 mm[Hg] Joana Ring Work Phone: [facility] [employer] [facility] 12-24-2023 12:46-0500 Heart rate 83 /min Joana Stratton MD Work Phone: [facility] 12-24-2023 12:46-0500 Respiratory rate 18 /min Joana Stratton MD Work Phone: [facility] [employer] [facility] 12-24-2023 12:46-0500 Systolic blood pressure 139 mm[Hg] Joana Stratton MD Work Phone: [facility] 11-21-2023 14:09-0500 Body height 177.8 cm Fabiola DALE Work Phone: [facility] 11-21-2023 14:09-0500 Body mass index (BMI) [Ratio] 29.41 kg/m2 Fabiola Romano [employer]-MEDICAL COLLECTIONS SPECIALIST Work Phone: [facility] 11-21-2023 14:09-0500 Body weight 92.99 kg Fabiola Romano [employer]-MEDICAL [employer]LECTIONS SPECIALIST Work Phone: [facility] 11-21-2023 14:09-0500 Diastolic blood pressure 78 mm[Hg] Fabiola Romano [employer]-MEDICAL COLLECTIONS SPECIALIST Work Phone: [facility] 11-21-2023 14:09-0500 Heart rate 84 /min Fabiola Romano [employer]-MEDICAL COLLECTIONS SPECIALIST Work Phone: [facility] 11-21-2023 14:09-0500 Respiratory rate 18 /min Fabiola Romano [employer]-MEDICAL COLLECTIONS SPECIALIST Work Phone: [facility] 11-21-2023 14:09-0500 Systolic blood pressure 121 mm[Hg] Fabiola Romano [employer]-MEDICAL COLLECTIONS SPECIALIST Work Phone: [facility] 10-24-2023 13:45-0500 Body height 177.8 cm Fabiola Romano [employer]-MEDICAL COLLECTIONS SPECIALIST Work Phone: [facility] 10-24-2023 13:45-0500 Body mass index (BMI) [Ratio] 29.41 kg/m2 Fabiola Romano [employer]-MEDICAL COLLECTIONS SPECIALIST Work Phone: [facility] 10-24-2023 13:45-0500 Body weight 92.99 kg Fabiola Romano [employer]-MEDICAL COLLECTIONS SPECIALIST Work Phone: [facility] 10-24-2023 13:45-0500 Diastolic blood pressure 85 mm[Hg] Fabiola Romano [employer]-MEDICAL COLLECTIONS SPECIALIST Work Phone: [facility] 10-24-2023 13:45-0500 Heart rate 82 /min Fabiola Romano [employer]-MEDICAL COLLECTIONS SPECIALIST Work Phone: [facility] 10-24-2023 13:45-0500 Respiratory rate 18 /min Fabiola Romano [employer]-MEDICAL COLLECTIONS SPECIALIST Work Phone: [facility] 10-24-2023 13:45-0500 Systolic blood pressure 128 mm[Hg] Fabiola Romano F[employer]ER-MEDICAL COLLECTIONS SPECIALIST Work Phone: [employer] Encounters Encounter Date Encounter Type Care Provider Facility Start: 10-31-2024 End: 10-31-[address] [facility] Facility:[facility] Comment on above: Post-pancreatectomy diabetes (HCC) (Primary Dx); Insulin pump status Start: 10-31-2024 End: 10-31-2024 Telemedicine consultation with patient Damion Bravo MD Work Phone: Endocrinology Start: 10-10-2024 End: 10-24-2024 Telephone encounter Dario Hines RN Work Phone: Diabetic Education [facility] Comment on above: Insulin Pump Start F ollow Up Start: 10-07-2024 End: 10-07-2024 Nursing evaluation of patient and report Dario Hines RN Work Phone: [facility] Comment on above: Post-pancreatectomy diabetes (HCC) (Primary Dx) Start: 10-07-2024 End: 10-07-[address] [facility] Facility:[facility] Start: 10-02-2024 End: 10-02-2024 Telephone encounter Damion Bravo MD Work Phone: Endocrinology Comment on above: Forms ([facility] [employer] Insulin pump) Start: 10-02-2024 End: 10-02-2024 ambulatory Dario Hines RN Work Phone: Diabetic Education [facility] Comment on above: Post-pancreatectomy diabetes (HCC) (Primary Dx) Start: 10-02-2024 End: 10-02-2024 Telemedicine consultation with patient Dario Hines RN Work Phone: Diabetic [facility] Start: 09-30-2024 End: 09-30-2024 ambulatory Jesus JACOBSON Facility:[facility] Start: 09-30-2024 End: 09-30-2024 Patient encounter procedure Jesus Jacobson MD Work Phone: General Surgery [...] Patient Update Insurance Authorizat ion (Insulin Pump [[facility]]) Start: 09-05-2024 End: 09-05-2024 Emergency department patient visit Dariusz Lambert MD Work Phone: [facility] ED Comment on above: Strain of neck muscl e, initial encounter (Primary Dx) Start: 09-05-2024 End: 09-05-2024 Orders Only Kelley Fowler MD Work Phone: General Surgery Comment on above: Acute post-operative pain (Primary Dx) Patient Update; Anneliese ent Question Start: 08-28-2024 End: 08-28-2024 Chart abstracting Manfred Yessyyue Mason Work Phone: Hematology/Oncology Comment on above: Research (IRB [id number]) Start: 08-28-2024 End: 09-04-2024 Evaluation and management of inpatient [facility] Facility:[facility] Start: 08-22-2024 End: 08-22-2024 Patient encounter procedure Emilee Hensley PhD Work Phone: General Surgery Comment on above: IPMN (intraductal pa pillary mucinous neoplasm); Preoperative examination Start: 08-22-2024 Encounter for other preprocedural examination EMILEE HENSLEY [facility] Start: 08-22-2024 End: 08-22-2024 Nursing evaluation of patient and report Ligia Kerns RN Work Phone: General Surgery Comment on above: Preoperative examina tion (Primary Dx) Start: 08-22-2024 End: 08-22-2024 Preprocedural examination done Ligia Kerns RN Work Phone: [facility] Work Phone: Start: 08-22-2024 End: 08-22-2024 Subsequent hospital visit by physician Xr Chest Main A[facility] Radiology Comment on above: IPMN (intraductal pa pillary mucinous neoplasm) [D49.0] Start: 08-22-2024 End: 08-22-2024 ambulatory EMILEE HENSLEY Facility:[facility] Start: 08-22-2024 End: 08-22-2024 ambulatory [facility] Facility:[facility] Start: 08-22-2024 End: 08-22-2024 Admission to establishment Pacc Main 7 Work Phone: Pre Anesthesia Start: 08-22-2024 End: 08-22-2024 Anesthesia consultation Pacc Main 7 Work Phone: Pre Anesthesia Comment on above: Severe persistent as thma, unspecified whether complicated (Primary Dx); 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); Dong's esophagus with dysplasia; Other chronic pancreatitis (HCC); Fatty liver; History of bowel resection; Preoperative examination Start: 08-22-2024 End: 08-22-2024 Preprocedural examination done [place] [id number] Work Phone: [facility] Work Phone: Start: 08-22-2024 End: 08-22-2024 ambulatory Jesus JACOBSON Facility:[facility] Start: 08-22-2024 End: 08-22-2024 ambulatory Damion Bravo [...] examination done Jesus Jacobson MD Work Phone: [facility] Start: 08-11-2024 End: 08-11-2024 Emergency department patient visit Kristyn Miller MD Work Phone: [facility] ED Comment on above: Left-sided chest wal l pain (Primary Dx); Rib contusion, left, sequela Start: 08-08-2024 End: 08-08-2024 Telephone encounter Jesus Jacobson MD Work Phone: General Surgery Comment on above: Patient Update Start: 08-08-2024 End: 08-08-2024 Emergency department patient visit ELIANA SPRINGER [facility] ED Comment on above: Chest wall contusion , left, initial encounter (Primary Dx); Strain of tendon of left half of anterior chest wall Start: 08-05-2024 End: 08-05-2024 Emergency department patient visit Sofia Smith MD Work Phone: [facility] ED Comment on above: Other chronic pancre atitis (HCC) (Primary Dx); Epigastric pain Start: 08-05-2024 End: 08-05-2024 Telephone encounter Ligia Kerns RN Work Phone: General Surgery Start: 08-04-2024 End: 08-04-2024 Refill Jesus Jacobson MD Work Phone: General Surgery Start: 07-30-2024 End: 08-04-2024 Telephone encounter Jesus Jacobson MD Work Phone: General Surgery Comment on above: Results; Patient Que stion Start: 07-28-2024 End: 07-28-2024 ambulatory [facility] Facility:[facility] Start: 07-28-2024 End: 07-28-2024 Subsequent hospital visit [...] Work Phone: General Surgery Comment on above: Virtual Classroom Manager - Misty aceves (Request for records) [facility] Start: 07-14-2024 End: 07-14-2024 ambulatory ELIANA SPRINGER [facility] Start: 07-14-2024 End: 07-14-2024 Subsequent hospital visit by physician Eliana Kenney CNP Work Phone: [facility] Laboratory Comment on above: Anemia, unspecified type; Vitamin D deficiency; Other fatigue; Prostate cancer screening Start: 07-01-2024 End: 07-01-2024 ambulatory Cristal X Orzech Facility:[facility] Start: 07-01-2024 End: 07-01-2024 Patient encounter procedure Cristal X Oreusebio [facility] Start: 06-26-2024 End: 06-26-2024 ambulatory LUIS F APONTE [facility] Start: 05-27-2024 ambulatory Clatonia Stacia martins APRN-RAMSEY Facility:[facility] Start: 05-24-2024 End: 05-24-2024 Evaluation and management of inpatient [facility] Start: 05-23-2024 ambulatory [facility] Start: 05-23-2024 End: 05-24-2024 Emergency department patient visit Eliana Springer APRN-RAMSEY Facility:[facility] Start: 05-13-2024 End: 05-13-2024 ambulatory Eliana Springer APRN-RAMSEY Facility:[facility] Start: 05-12-2024 End: 05-12-2024 ambulatory Danica Conklin MD Facility:[facility] Start: 04-28-2024 End: 04-28-2024 ambulatory Eliana Springer APRN-RAMSEY Facility:[facility] Start: 04-26-2024 End: 04-26-2024 Emergency department patient visit Max Delong MD Work Phone: [facility] ED Comment on above: Thoracic myofascial strain, initial encounter (Primary Dx); Left wrist sprain, initial encounter; Closed nondisplaced fracture of phalanx of left index finger, unspecified phalanx, initial encounter Start: 04-23-2024 End: 04-25-2024 ambulatory ELIANA Palomo [facility] Start: 04-23-2024 End: 04-25-2024 Subsequent hospital visit by physician [facility] Laboratory Comment on above: Cervical spinal sten osis Start: 04-14-2024 End: 04-14-2024 ambulatory Eliana Springer [employer]-MEDICAL COLLECTIONS SPECIALIST Facility:[facility] Start: 04-03-2024 End: 04-05-2024 ambulatory ELIANA Palomo [facility] Start: 04-02-2024 End: 04-02-2024 Emergency department patient visit MELLOTT Stacia [facility] Start: 03-26-2024 End: 03-26-2024 ambulatory FABIOLA ROMANO [facility] Start: 03-17-2024 End: 03-17-2024 Emergency department patient visit Tegan Hutchins DO Work Phone: [facility] ED Comment on above: Nonspecific chest pa in (Primary Dx) Start: 03-12-2024 End: 03-12-2024 ambulatory Eliana Springer APRN-MEDICAL COLLECTIONS SPECIALIST Facility:[facility] Start: 03-12-2024 End: 03-12-2024 ambulatory Eliana Springer APRN-MEDICAL COLLECTIONS SPECIALIST [facility] Start: 02-25-2024 End: 02-25-2024 ambulatory JOANA STRATTON [facility] Start: 02-07-2024 End: 02-08-2024 Evaluation and management of inpatient IRVIN OBRIEN [facility] Start: 01-31-2024 End: 02-02-2024 ambulatory ELIANA Palomo [facility] Start: 01-31-2024 End: 02-02-2024 Subsequent hospital visit by physician Eliana Kenney CNP Work Phone: [facility] Start: 01-21-2024 End: 01-21-2024 ambulatory JOANA STRATTON [facility] Start: 01-21-2024 End: 01-21-2024 Office outpatient visit 25 minutes Joana Stratton MD Work Phone: [facility] Comment on above: Thoracic spondylosis without myelopathy (Primary Dx); Postlaminectomy syndrome, lumbar region; Encounter for long-term opiate analgesic use Start: 01-21-2024 End: 01-21-2024 ambulatory [facility] Start: 01-15-2024 End: 01-15-2024 Evaluation and management of inpatient MIGDALIA Santoyo [facility] Start: 01-14-2024 End: 01-15-2024 Evaluation and management of inpatient [facility] Start: 12-24-2023 End: 12-24-2023 Office outpatient visit 25 minutes Joana Stratton MD Work Phone: [facility] Comment on above: Thoracic spondylosis without myelopathy (Primary Dx); Postlaminectomy syndrome, lumbar region; Encounter for long-term opiate analgesic use Start: 12-24-2023 End: 12-24-2023 ambulatory [facility] Start: 11-30-2023 End: 11-30-2023 ambulatory ELIANA SPRINGER [facility] Start: 11-30-2023 End: 11-30-2023 Subsequent hospital visit by physician Eliana Springer FENCE RIDER - MEDICAL COLLECTIONS SPECIALIST Work Phone: [facility] Comment on above: Other fatigue; Chronic pain syndrome; Anemia, unspecified type; Low vitamin D level Start: 11-27-2023 Documentation procedure Valentina neri RN [facility] Start: 11-26-2023 End: 11-27-2023 Evaluation and management of inpatient [facility] Start: 11-21-2023 End: 11-21-2023 Office outpatient visit 25 minutes Fabiola Romano F[employer] R[employer]ER-MEDICAL COLLECTIONS SPECIALIST Work Phone: [facility] Comment on above: Thoracic spondylosis without myelopathy (Primary Dx); Postlaminectomy syndrome, lumbar region; Lumbosacral spondylosis without myelopathy Start: 11-21-2023 End: 11-21-2023 ambulatory FABIOLA ROMANO [facility] Start: 11-06-2023 Orders Only Genoveva Pérezonald [facility] Comment on above: Thoracic spondylosis without myelopathy (Primary Dx) Start: 10-24-2023 End: 10-24-2023 Office outpatient visit 25 minutes Fabiola Romano F[employer] R[employer]ER-MEDICAL COLLECTIONS SPECIALIST Work Phone: [facility] Comment on above: Thoracic spondylosis (Primary Dx); Postlaminectomy syndrome, lumbar region; Encounter for long-term opiate analgesic use Start: 10-24-2023 End: 10-24-2023 ambulatory FABIOLA ROMANO [facility] Start: 10-08-2023 End: 10-09-2023 Evaluation and management of inpatient JOANA Nickerson [facility] Start: 10-07-2023 End: 10-07-2023 Emergency department patient visit [facility] Start: 10-02-2023 End: 10-02-2023 ambulatory [facility] Start: 09-10-2023 End: 09-10-2023 ambulatory [facility] Start: 07-05-2023 End: 07-07-2023 Patient encounter status Uli Strong MD Work Phone: [facility] Work Phone: Start: 07-05-2023 End: 07-07-2023 Subsequent hospital visit by physician Uli Strong MD Work Phone: [facility] Non-Invasive Cardiology Comment on above: Preop cardiovascular exam; Primary hypertension; Mixed hyperlipidemia; Intermittent chest pain Start: 06-21-2023 End: 06-21-2023 Subsequent hospital visit by physician Eliana Springer APRN - MEDICAL COLLECTIONS SPECIALIST Work Phone: [facility] Laboratory Comment on above: Diarrhea, unspecifie d type Start: 09-27-2020 End: 09-27-2020 [facility] Start: 08-23-2020 End: 08-23-2020 [facility] Start: 07-05-2020 End: 07-05-2020 [facility] Start: 05-24-2020 End: 05-24-2020 [facility] Start: 04-26-2020 End: 04-27-2020 [facility] Start: 01-26-2020 End: 01-26-2020 [facility] Start: 12-15-2019 End: 12-15-2019 Patient encounter procedure DEMARCUS [facility] Start: 12-09-2019 End: 12-09-2019 [facility] Start: 12-02-2019 End: 12-02-2019 [facility] Start: 11-27-2019 End: 11-27-2019 [facility] Start: 11-17-2019 End: 11-17-2019 [facility] Start: 11-17-2019 End: 11-17-2019 Patient encounter procedure [facility] Procedures Date Procedure Procedure Detail Performing Clinician Start: 08-28-2024 H/O splenectomy S/P splenectomy NA W mark REARDON Work Phone: Start: 08-22-2024 Radiologic exam ches t 2 views R Kassidy Jacobson MD Work Phone: Start: 08-22-2024 Antibody screen KAJAL NORMAN Comment on above: Order Comment: Speci men Type: BLOOD SPECIMENOrdering Facility: [facility] Address: [address] [place] [address] Performed By: #### T SCR30 ####CC MAIN BLOOD BANKCLIA [id number] [place] [address] [place] Start: 08-11-2024 Ct thorax w/o contra st material M Antonio Mcgarry [employer] - [employer]ICAL [employer]LE[employer] SPECIALIST Work Phone: Start: 08-08-2024 Radex ribs uni w/pos teroant ch minimum 3 views Tegan Earlene Hutchins DO Work Phone: Start: 08-05-2024 Comprehensive metabo lic panel Sofia Smith MD Work Phone: Start: 07-28-2024 End: 07-28-2024 Gluc bld gluc mntr dev cleared fda spec home use Kajal Stewart MD Work Phone: Start: 07-28-2024 Esophagoscp rig rodriguez soral hypopharynx crv esoph Ligia Kerns RN Work Phone: Start: 07-14-2024 Assay of thyroid sti mulating hormone tsh Eliana Springer [employer] Work Phone: Start: 04-26-2024 End: 04-26-2024 Radex spine thoracic 2 views Max matta MD Work Phone: Start: 04-23-2024 Creatinine blood Lauren Gutierrez DO Work Phone: Start: 03-17-2024 Radiologic exam ches t single view Tegan J Hutchins DO Work Phone: Start: 03-17-2024 Ecg routine ecg w/le ast 12 lds w/i&r Tegan J Hutchins DO Work Phone: Start: 03-17-2024 End: 03-17-2024 Basic metabolic panel calcium total Tegan J Hutchins DO Work Phone: Start: 11-30-2023 Urinalysis microscopic only Eliana Springer [employer] - [employer]ICAL [employer]LE[employer] SPECIALIST Work Phone: Start: 11-30-2023 Urnls dip stick/tabl et rgnt auto w/o microscopy Eliana Springer [employer] - [employer]ICAL [employer]LE[employer] SPECIALIST Work Phone: Start: 11-30-2023 Assay of iron Eliana Springer [employer] - [employer]ICAL [employer]LE[employer] SPECIALIST Work Phone: Start: 10-02-2023 Colonoscopy Eliana Garcia [employer] - MEDICAL [employer]LE[employer] SPECIALIST Work Phone: Start: 07-06-2023 Myocardial spect mul tiple studies lUi Strong MD Work Phone: Start: 12-15-2019 Infectious agent dna /rna influenza 1st 2 types DEMARCUS REID Start: 12-09-2019 Radiologic exam ches t 2 views DEMARCUSBASILIA REID Start: 11-17-2019 Radex hip unilateral with pelvis 2-3 views DEMARCUSBASILIA NUGENTMAN Start: 11-17-2019 Radiologic exam knee complete 4/more views DEMARCUS REID Start: 11-17-2019 Hgb glycosylated dev ice cleared fda home use DEMARCUS REID Start: 03-01-2018 Lipid 1996 panel - S nenita or Plasma Alin Bardales MD Work Phone: Start: 07-03-2012 Colonoscopy [facility] Work Phone: Plan of Treatment Date Care Activity Detail Author Start: 2034 Pneumococcal 0-64 years Vaccine (3 - PPSV23 if available, else PCV20) Pneumococcal 0-64 years Vaccine (3 - PPSV23 if available, else PCV20) [facility] Start: 2034 Pneumococcal 0-64 years Vaccine (3 - PPSV23 or PCV20) Pneumococcal 0-64 years Vaccine (3 - PPSV23 or PCV20) [facility] Start: 2034 Pneumococcal 0-64 years Vaccine (3 of 3 - PPSV23 or PCV20) Pneumococcal 0-64 years Vaccine (3 of 3 - PPSV23 or PCV20) [facility] Start: 2034 Pneumococcal vaccination Pneumococcal Vaccine (3 of 3 - PPSV23 or PCV20) [facility] Start: 08-22-2034 DTaP/Tdap/Td vaccine (3 - Td or Tdap) DTaP/Tdap/Td vaccine (3 - Td or Tdap) [facility] Start: 08-22-2034 Urine microalbumin profile DTaP,Tdap,Td Vaccine (3 - Td or Tdap) [facility] Start: 06-18-2027 Diabetes Screening Diabetes Screening [facility] Start: 10-02-2026 Screening for malignant neoplasm of colon [facility] Start: 05-30-2026 Screening for malignant neoplasm of colon [facility] Start: 08-22-2025 BP Controlled (<130/80) BP Controlled (<130/80) [employer] Start: 08-20-2025 End: 08-20-2025 Patient encounter procedure 08/20/2025 11:00 AM EDT Office Visit [facility] [address] [place] [phone] Octavio Chatterjee MD [address] [facility], [address] [place] [address] one year PSA [facility] Comment on above: one year PSA Start: 08-05-2025 GFR test (Diabetes, CKD 3-4, OR last GFR 15-59) GFR test (Diabetes, CKD 3-4, OR last GFR 15-59) [facility] Start: 07-24-2025 Depression Monitoring Depression Monitoring [facility] Start: 07-24-2025 Hepatitis B vaccine (1 of 3 - 19+ 3-dose series) Hepatitis B vaccine (1 of 3 - 19+ 3-dose series) [facility] Yill[facility] Comment on above: Postponed from 1988 (Patient Refus ed) Start: 06-18-2025 Depression Monitoring Depression Monitoring [facility] Start: 06-18-2025 Hemoglobin A1c measurement A1C test (Diabetic or Prediabetic) [facility] Start: 04-23-2025 GFR test (Diabetes, CKD 3-4, OR last GFR 15-59) GFR test (Diabetes, CKD 3-4, OR last GFR 15-59) [facility] Start: 04-13-2025 Glaucoma screening Diabetic retinal exam [facility] Comment on above: Postponed from 1987 (Not Indicated ) Start: 04-03-2025 Depression Monitoring Depression Monitoring [facility] Start: 04-03-2025 Diabetic foot examination Diabetic foot exam [facility] Comment on above: Postponed from 1979 (Not Indicated ) Start: 04-03-2025 DTaP/Tdap/Td vaccine (2 - Td or Tdap) DTaP/Tdap/Td vaccine (2 - Td or Tdap) [facility] [employer] Comment on above: Postponed from 12/07/2023 (Patient Refus ed) Start: 04-03-2025 Urine screening for protein Diabetic Alb to Cr ratio (uACR) test [employer] Comment on above: Postponed from 1987 (Not Indicated ) Start: 03-17-2025 GFR test (Diabetes, CKD 3-4, OR last GFR 15-59) GFR test (Diabetes, CKD 3-4, OR last GFR 15-59) [employer] Start: 02-20-2025 End: 02-20-2025 Patient encounter procedure 02/20/2025 10:20 AM EDT Office Visit Endocrinology [address] [phone] Damion Bravo MD [address] [place] [address] f/u Endocrinology Comment on above: f/u Start: 02-12-2025 Depression Monitoring Depression Monitoring [employer] Start: 02-07-2025 Lipid panel Lipids [facility] [employer] Start: 01-13-2025 Adult BMI Screening Adult [facility] Screening [facility] Start: 01-13-2025 Tobacco Screening Tobacco Screening [facility] Start: 01-10-2025 Depression Monitoring Depression Monitoring [employer] Start: 12-23-2024 Adult BMI Screening Adult [facility] Screening [facility] Start: 12-23-2024 Tobacco Screening Tobacco Screening [facility] Start: 12-22-2024 End: 12-22-2024 Patient encounter procedure 12/22/2024 10:20 AM EST Office Visit [facility] [address] [place] [phone] Eliana Springer APRN - RAMSEY [address] [place] [address] 6 month check [facility] Comment on above: 6 month check Start: 12-19-2024 Hemoglobin A1c measurement HbA1C [facility] Start: 11-26-2024 Adult BMI Screening [facility] Start: 11-26-2024 Tobacco Screening [facility]ening [facility] Start: 11-13-2024 Depression Monitoring Depression Monitoring [employer] Start: 10-31-2024 End: 10-31-2024 Follow-up encounter 10/31/2024 4:20 PM EST [facility] [address] [place] [address] Damion Bravo MD [address] [place] [address] Bravo Endocrinology Comment on above: follow up per Dr. Bravo Start: 10-24-2024 Adult BMI Screening Adult BMI Screening [facility] [employer] [facility] Start: 10-24-2024 Tobacco Screening Tobacco [facility]ening [facility] Start: 10-17-2024 Meningococcal Conjugate Vaccine (2 - Risk 2-dose series) Meningococcal Conjugate Vaccine (2 - Risk 2-dose series) [facility] Start: 10-07-2024 GFR test (Diabetes, CKD 3-4, OR last GFR 15-59) GFR test (Diabetes, CKD 3-4, OR last GFR 15-59) [facility] [employer] Start: 10-07-2024 End: 10-07-2024 Nursing evaluation of patient and report 10/07/2024 12:30 PM EST Nurse Visit Diabetic Education Main [facility] [address] [place] [address] Dario Hines, SINAI [address] [place] [address] Theresa Trainkb Diabetic Education Main [facility] Comment on above: Theresa Trainkb Start: 10-02-2024 End: 10-02-2024 ambulatory 10/02/2024 12:30 PM EST Distance Health Diabetic Education [facility] [address] [place] [address] [place] [address] [place] [address] Pre-pump Diabetic Education [facility] Comment on above: Pre-pump Start: 09-30-2024 End: 09-30-2024 Patient encounter procedure 09/30/2024 10:45 AM EST Office Visit General Surgery [address] [address] [place] [address] [place] [address] postop General Surgery Comment on above: postop Start: 09-19-2024 Meningococcal B Vaccine: Consider Based On Risk (2 of 4 - Increased Risk Bexsero 2-dose series) Meningococcal B Vaccine: Consider Based On Risk (2 of 4 - Increased Risk Bexsero 2-dose series) [facility] Start: 08-28-2024 End: 08-28-2024 Admission to same day surgery center 08/28/2024 12:15 PM EST - 08/28/2024 5:45 PM EST Surgery Admitting [address] [place] [address] [place] [address] [place] [address] EXPLORATORY LAPAROTOMY Admitting Comment on above: EXPLORATORY LAPAROTOMY Start: 08-28-2024 End: 08-28-2024 Anesthesia consultation 08/28/2024 12:15 PM EST Anesthesia Event Admitting [address] [place] [address] Harjinder Craig, Research Coordinator Admitting Start: 08-28-2024 End: 08-28-2024 Exploratory laparotomy celiotomy w/wo biopsy spx [facility] Start: 08-28-2024 Subsequent hospital visit by physician 08/28/2024 12:15 PM EST Hospital Encounter Admitting [address] [place] [address] [place] [address] [place] [address] IPMN (intraductal papillary mucinous neoplasm) [D49.0] Admitting Comment on above: IPMN (intraductal papillary mucinous emmanuel plasm) [D49.0] Start: 08-22-2024 End: 08-22-2024 Nursing evaluation of patient and report 08/22/2024 1:30 PM EDT Nurse Visit General Surgery [address] [phone] Ligai Kerns, RN [address] [place], [place] [phone] Pt Education General Surgery Comment on above: Pt Education Start: 08-22-2024 End: 08-22-2024 ambulatory 08/22/2024 12:30 PM EDT Results Only Cardiology [address] [place] [address] Pre Op Cardiology Comment on above: Pre Op Start: 08-22-2024 End: 08-22-2024 Patient encounter procedure Main [place] [facility] Comment on above: Pre Op Start: 08-22-2024 End: 08-22-2024 Anesthesia consultation 08/22/2024 11:20 AM EDT PAT Pre Anesthesia [address] [place] [id number] 7, Pacc Main [address] [phone] PRE OP Pre Anesthesia Comment on above: PRE OP Start: 08-20-2024 End: 08-20-2024 Patient encounter procedure 08/20/2024 11:00 AM EDT Office Visit [facility] [address] [place] [address] Octavio Chatterjee MD [address] [place] [address], [address] [place] [address] 4-6 week Follow up-PSA reminder 07/09 aw [facility] Comment on above: 4-6 week Follow up-PSA reminder 07/09 aw Start: 08-14-2024 End: 11-13-2024 CBC W Auto Differential panel - Blood COMPLETE BLOOD COUNT AND DIFFERENTIAL Lab Routine IPMN (intraductal papillary mucinous neoplasm) Preoperative examination Expected: 08/14/2024 (Approximate), Expires: 11/13/2024 [facility] Comment on above: Expected: 08/14/2024 (Approximate), Expi res: 11/13/2024 Start: 08-14-2024 End: 11-13-2024 Comprehensive metabolic 2000 panel - Serum or Plasma COMPREHENSIVE METABOLIC PANEL Lab Routine IPMN (intraductal papillary mucinous neoplasm) Preoperative examination Expected: 08/14/2024 (Approximate), Expires: 11/13/2024 [facility] Comment on above: Expected: 08/14/2024 (Approximate), Expi res: 11/13/2024 Start: 08-14-2024 End: 11-13-2024 CONFIRM BLOOD TYPE CONFIRM BLOOD TYPE Blood Bank Routine IPMN (intraductal papillary mucinous neoplasm) Preoperative examination Expected: 08/14/2024, Expires: 11/13/2024 [facility] Comment on above: Expected: 08/14/2024, Expires: Start: 08-14-2024 End: 11-13-2024 TYPE AND SCREEN,30 DAY TYPE AND SCREEN,30 DAY Blood Bank Routine IPMN (intraductal papillary mucinous neoplasm) Preoperative examination Expected: 08/14/2024, Expires: 11/13/2024 [facility] Comment on above: Expected: 08/14/2024, Expires: Start: 08-09-2024 Hemoglobin A1c measurement A1C test (Diabetic or Prediabetic) [facility] Start: 08-09-2024 Lipid panel Lipids [facility] Start: 08-04-2024 End: 08-04-2024 Patient encounter procedure 08/04/2024 8:00 PM EDT Appointment [facility] [address] [place] [phone] Diagnostic [facility] Comment on above: Diagnostic Start: 07-28-2024 End: 07-28-2024 Patient encounter procedure 07/28/2024 7:30 AM EDT Appointment Gastroenterology [address] [address] Sheyla Mensah MD [address] [address] Type: Gastroenterology Comment on above: Type: Start: 07-22-2024 End: 07-22-2024 Patient encounter procedure 07/22/2024 3:00 PM EDT Office Visit General Surgery [address] [place] [address] [place] [address] [place] [address] panc cyst General Surgery Comment on above: panc cyst Start: 07-22-2024 End: 10-21-2024 Cancer Ag 19-9 [Units/volume] in Serum or Plasma [facility] Work Phone: Comment on above: Expected: 07/22/2024, Expires: Start: 07-17-2024 End: 07-17-2024 Patient encounter procedure 07/17/2024 1:00 PM EDT Office Visit [facility] Part [address] [place] [address] Octavio Chatterjee MD [address] [facility], [address] [place] [address] 4-6 week Follow up-PSA reminder 07/09 aw [facility] Comment on above: 4-6 week Follow up-PSA reminder 07/09 aw Start: 07-12-2024 Hepatitis B vaccine (1 of 3 - 3-dose series) Hepatitis B vaccine (1 of 3 - 3-dose series) [facility] Comment on above: Postponed from 1969 (Patient Refus ed) Start: 06-22-2024 Covid-19 Vaccine ( season) Covid-19 Vaccine ( season) [facility] Start: 06-22-2024 Influenza vaccination [employer] Start: 06-21-2024 Depression Monitoring Depression Monitoring [facility] [employer] [facility] Start: 05-22-2024 Influenza vaccination Flu vaccine (#1) [facility] Start: 05-22-2024 End: 05-22-2024 Patient encounter procedure 05/22/2024 12:30 PM EDT Office Visit [facility] [address] [place] [address] Demarcus Reid MD [address] [place] [address] re-est care [facility] Comment on above: re-est care Start: 05-13-2024 End: 05-13-2024 Patient encounter procedure 05/13/2024 2:20 PM EDT Office Visit [facility] [address] [place] [phone] Eliana Springer, NATE - MEDICAL COLLECTIONS SPECIALIST [address] [place] [address] 6 months and awv [facility] Comment on above: 6 months and awv Start: 02-25-2024 End: 02-25-2024 Patient encounter procedure 02/25/2024 12:30 PM EDT Office Visit [facility] [address] [place] [phone] Joana Stratton MD [address] [place] [address] [facility] Start: 01-21-2024 End: 01-21-2024 Patient encounter procedure 01/21/2024 12:50 PM EDT Office Visit [facility] [address] [place] [phone] Joana Stratton MD [address] [place] [address] [facility] Start: 12-24-2023 End: 12-24-2023 Patient encounter procedure 12/24/2023 1:00 PM EST Office Visit [facility] [address] [place] [phone] Joana Stratton MD [address] [place] [address] [facility] Start: 12-07-2023 DTaP,Tdap and Td Vaccines (2 - Td or Tdap) DTaP,Tdap and Td Vaccines (2 - Td or Tdap) [facility] Start: 12-07-2023 DTaP/Tdap/Td vaccine (2 - Td or Tdap) DTaP/Tdap/Td vaccine (2 - Td or Tdap) [facility] Start: 12-07-2023 Urine microalbumin profile DTaP,Tdap,Td Vaccine (2 - Td or Tdap) [facility] Start: 11-26-2023 End: 11-26-2023 Admission to same day surgery center 11/26/2023 11:00 AM EST - 11/26/2023 11:10 AM EST Surgery [address] [phone] Joana Stratton MD [address] [place] [phone] #2 Bilateral Thoracic Medial Branch Block T7-8 and T8-9 [05602 (CPT )] [facility] Comment on above: #2 Bilateral Thoracic Medial Branch Bloc k T7-8 and T8-9 [62258 (CPT )] Start: 11-26-2023 End: 11-26-2023 Njx dx/ther agt pvrt facet jt crv/thrc 1 level INJECTION BLOCK NERVE MEDIAL BRANCH Thoracic spondylosis without myelopathy 11/26/2023 11:00 AM EST [facility] Start: 11-26-2023 End: 11-26-2023 Patient encounter procedure 11/26/2023 11:00 AM EST Procedure visit [facility] [address] [place] [phone] [facility] Start: 11-26-2023 Subsequent hospital visit by physician 11/26/2023 11:00 AM EST Hospital Encounter [address] [place] [phone] Joana Stratton MD [facility] [place] [phone] [facility] Start: 11-21-2023 End: 11-21-2023 Patient encounter procedure 11/21/2023 2:30 PM EST Office Visit [facility] [address] [facility] [address] [place] [address] Fabiola Romano, F[employer] R[employer]ER-MEDICAL COLLECTIONS SPECIALIST [address] [facility] [address] [place] [address] [facility] Start: 10-22-2023 Annual Wellness Visit (Medicare Advantage) Annual Wellness Visit (Medicare Advantage) [facility] Start: 07-12-2023 End: 07-12-2023 Patient encounter procedure [facility] Comment on above: 1 month f/u establish care Start: 07-09-2023 End: 07-09-2023 Patient encounter procedure 07/09/2023 2:40 PM EDT Office Visit [facility] [address] [place] [address] Eliana Springer, F[employer]ER - MEDICAL COLLECTIONS SPECIALIST [address] [place] [address] right ear impacted painful and muffled [facility] Comment on above: right ear impacted painful and muffled Start: 06-29-2023 End: 06-29-2023 Patient encounter procedure 06/29/2023 Office Visit Cardiology Uli Strong MD [address] [place] [address] [facility] Start: 06-26-2023 End: 06-26-2023 Patient encounter procedure 06/26/2023 Office Visit Gastroenterology She Mead, F[employer]ER - MEDICAL COLLECTIONS SPECIALIST [address] [address] [facility] Start: 05-22-2023 Influenza vaccination Flu vaccine (#1) [facility] [employer] Start: 03-01-2023 Lipid panel Lipid Screening [facility] Start: 07-03-2022 Screening for malignant neoplasm of colon Colonoscopy [facility] Start: 09-01-2021 COVID-19 Vaccine (4 - Booster for Moderna series) COVID-19 Vaccine (4 - Booster for Moderna series) [facility] Start: 09-01-2021 COVID-19 Vaccine (4 - Moderna series) COVID-19 Vaccine (4 - Moderna series) [facility] Start: 08-09-2021 Lipid panel Lipids [facility] [employer] Start: 05-24-2021 Hemoglobin A1c measurement A1C test (Diabetic or Prediabetic) [facility] [employer] Start: 03-01-2019 Hepatitis B surface antibody level LDL Cholesterol [facility] Start: 2014 Screening for malignant neoplasm of colon [facility] [employer] Start: 1988 Hepatitis B vaccine (1 of 3 - 19+ 3-dose series) Hepatitis B vaccine (1 of 3 - 19+ 3-dose series) [facility] [employer] Start: 1987 Adult BMI Follow Up Plan Adult BMI Follow Up Plan [facility] [employer] [facility] Start: 1987 Annual PCP Team Chronic Disease Visit Annual PCP Team Chronic Disease Visit [facility] Start: 1987 Anxiety Screening Anxiety Screening [facility] Start: 1987 Depression Screening Depression Screening [facility] Start: 1987 Glaucoma screening Diabetic retinal exam [facility] Start: 1987 Hepatitis C screening Hepatitis C Screening [facility] Start: 1987 HIV screening HIV Screening [facility] Start: 1987 Spirometry Spirometry [facility] Start: 1987 Urine screening for protein Diabetic Alb to Cr ratio (uACR) test [facility] Start: 1981 Depression Screening Depression Screening [facility] [employer] [facility] Start: 1979 Diabetic foot examination Diabetic foot exam [facility] Start: 1979 Glaucoma screening Dilated Retinal Exam [facility] Start: 1979 Hepatitis B screening Urine Albumin:Creatinine Ratio [facility] Start: 1969 Hepatitis B vaccine (1 of 3 - 3-dose series) Hepatitis B vaccine (1 of 3 - 3-dose series) [employer] End: 01-20-2025 Benzodiazepine, urine, qualitative Benzodiazepine, urine, qualitative Lab Routine Postlaminectomy syndrome, lumbar region Encounter for long-term opiate analgesic use 1 Occurrences starting 01/21/2024 until 01/20/2025 [employer] Work Phone: Comment on above: 1 Occurrences starting 01/21/2024 until 01/20/2025 Benzodiazepines [Presence] in Urine Benzodiazepine, urine, qualitative Lab Routine Postlaminectomy syndrome, lumbar region Encounter for long-term opiate analgesic use 01/21/2024 6:17 PM EDT [employer] End: 04-23-2024 CT Cervical spine W contrast IV [employer] Work Phone: Comment on above: 1 Occurrences starting 04/23/2024 until 04/23/2024 CT Chest WO contrast CT CHEST WO CONTRAST Imaging STAT 08/11/2024 1:05 PM EDT [employer] End: 08-14-2025 ECG COMPLETE ECG COMPLETE ECG Routine IPMN (intraductal papillary mucinous neoplasm) Preoperative examination 1 Occurrences starting 08/14/2024 until 08/14/2025 [facility] Comment on above: 1 Occurrences starting 08/14/2024 until 08/14/2025 End: 07-22-2025 EGD - THERAPEUTIC, EUS, OR TUBE INTERVENTIONS EGD - THERAPEUTIC, EUS, OR TUBE INTERVENTIONS Endoscopy Routine Cyst and pseudocyst of pancreas 1 Occurrences starting 07/22/2024 until 07/22/2025 [facility] Comment on above: 1 Occurrences starting 07/22/2024 until 07/22/2025 EKG 12 Lead EKG 12 Lead ECG STAT 03/17/2024 2:02 PM EDT [employer] End: 06-21-2023 Gastrointestinal Panel, Molecular [employer] Comment on above: 1 Occurrences starting 06/21/2023 until 06/21/2023 INJECTION BLOCK NERV E MEDIAL BRANCH INJECTION BLOCK NERVE MEDIAL BRANCH Thoracic spondylosis [employer] End: 07-14-2024 Iron and TIBC [employer] Comment on above: 1 Occurrences starting 07/14/2024 until 07/14/2024 Lupus Anticoagulant Lupus Antico agulant Lab Routine Other fatigue Chronic pain syndrome 11/30/2023 9:42 AM EST [employer] PANC ELASTASE, FECAL PANC ELASTA SE, FECAL Lab Routine Cyst and pseudocyst of pancreas 07/22/2024 4:18 PM EDT [facility] End: 07-14-2024 PSA screening [employer] Work Phone: Comment on above: 1 Occurrences starting 07/14/2024 until 07/14/2024 RADIOFREQUENCY ABLAT ION SPINAL RADIOFREQUENCY ABLATION SPINAL Postlaminectomy syndrome, lumbar region Encounter for long-term opiate analgesic use Thoracic spondylosis without myelopathy [facility] REFER FOR ADMIT INTERVIEW Procedures Routine IPMN (intraductal papillary mucinous neoplasm) Preoperative examination Ordered: 08/14/2024 [facility] Work Phone: Comment on above: Ordered: 08/14/2024 Spirometry panel Incentive adam metry RT Respiratory Care Routine Every 2hr while awake until discontinued starting 08/08/2024 [facility] Comment on above: Every 2hr while awake until discontinued starting 08/08/2024 End: 01-20-2025 Unlisted Lab Test Unlisted Lab Test Lab Routine Postlaminectomy syndrome, lumbar region Encounter for long-term opiate analgesic use 1 Occurrences starting 01/21/2024 until 01/20/2025 [facility] Comment on above: 1 Occurrences starting 01/21/2024 until 01/20/2025 Unlisted Lab Test UR INE DRUG SCREEN;PAIN MANAGEMENT Unlisted Lab Test URINE DRUG SCREEN;PAIN MANAGEMENT Lab Routine Postlaminectomy syndrome, lumbar region Encounter for long-term opiate analgesic use 01/21/2024 6:17 PM EDT [facility] End: 08-05-2024 Urinalysis with Microscopic Urinalysis with Microscopic Lab STAT One Time for 1 Occurrences starting 08/05/2024 until 08/05/2024 [facility] Comment on above: One Time for 1 Occurrences starting 07/22 until 08/05/2024 End: 07-14-2024 Vitamin B12 & Folate [facility] Comment on above: 1 Occurrences starting 07/14/2024 until 07/14/2024 End: 07-14-2024 Vitamin D 25 Hydroxy [facility] Comment on above: 1 Occurrences starting 07/14/2024 until 07/14/2024 End: 09-13-2025 XR Chest PA and Lateral XR CHEST 2V FRONTAL/LAT Radiology Routine IPMN (intraductal papillary mucinous neoplasm) Preoperative examination 1 Occurrences starting 08/14/2024 until 09/13/2025 [facility] Comment on above: 1 Occurrences starting 08/14/2024 until 09/13/2025 Immunizations Immunization Date Immunization Notes Care Provider Charito lim 08-22-2024 DTP-Haemophilus influenzae type b conjugate vaccine [facility] 7 Work Phone: [facility] 08-22-2024 meningococcal (MenACWY-TT) vaccine, quadrivalent (MENQUADFI) Pac 7 Work Phone: [facility] 08-22-2024 meningococcal B vacc ine, recombinant, OMV, adjuvanted Pac 7 Work Phone: [facility] 08-22-2024 pneumococcal conjuga te (PCV20) vaccine, 20 valent (PREVNAR 20) Pac 7 Work Phone: [facility] Work Phone: 08-14-2023 influenza virus vacc ine, unspecified formulation Joana Stratton MD Work Phone: [facility] 08-13-2023 Influenza, injectabl e, Madin Clanton Canine Kidney, preservative free, quadrivalent Eliana Gian [employer] Work Phone: [facility] 07-14-2023 COVID-19, MODERNA, ( formula), (age 12y+), IM, 50mcg/0.5mL Eliana Gian [employer] Work Phone: [facility] 07-07-2021 COVID-19, MODERNA BL UE border, Primary or Immunocompromised, (age 12y+), IM, 100 mcg/0.5mL Eliana Gian [employer] Work Phone: [facility] 02-01-2021 COVID-19, MODERNA BL UE border, Primary or Immunocompromised, (age 12y+), IM, 100 mcg/0.5mL Eliana Gian [employer] Work Phone: [facility] 01-03-2021 COVID-19, MODERNA BL UE border, Primary or Immunocompromised, (age 12y+), IM, 100 mcg/0.5mL Eliana Gian [employer] Work Phone: [facility] 08-07-2020 zoster vaccine recombinant Eliana Gian [employer] Work Phone: [facility] 06-29-2020 influenza virus vacc ine, unspecified formulation Sofia Smith MD Work Phone: [facility] 06-29-2020 influenza, injectabl e, quadrivalent, preservative free Eliana Gian [employer] Work Phone: [facility] 06-29-2020 influenza, seasonal, injectable Eliana Gian [employer] Work Phone: [facility] 06-05-2020 zoster vaccine recombinant Eliana Gian [employer] Work Phone: [facility] 08-01-2019 influenza, injectabl e, quadrivalent, preservative free Eliana Gian [employer] Work Phone: [facility] 09-17-2018 influenza, injectabl e, quadrivalent, preservative free Eliana Gian [employer] Work Phone: [facility] 10-01-2017 influenza virus vacc ine, unspecified formulation Sofia Smith MD Work Phone: [facility] 10-01-2017 influenza, injectabl e, quadrivalent, contains preservative Eliana Gian [employer] Work Phone: [facility] 08-06-2017 pneumococcal conjuga te vaccine, 13 valent [facility] Work Phone: [facility] 07-07-2017 pneumococcal conjuga te vaccine, [address] [facility] [employer] [facility] Work Phone: [facility] 01-17-2017 pneumococcal polysaccharide vaccine, [address] [facility] [employer] [facility] Work Phone: [facility] 08-17-2016 influenza virus vacc ine, unspecified formulation [facility] [employer] [facility] Work Phone: [facility] Work Phone: 12-07-2013 tetanus toxoid, redu pierre diphtheria toxoid, and acellular pertussis vaccine, adsorbed [facility] [employer] [facility] Work Phone: [facility] 11-01-2010 pneumococcal conjuga te vaccine, [address] [facility] [employer] [facility] Work Phone: [facility] Payers Date Payer Category Payer Medicare [id number] 2023 Medicare [id number] 1.2.8 [id number] 2019 Medicaid [id number] 2014 Medicare [id number] 1969 Unknown [id number] 2.16.8 40.1.191243.3.579.2.93 1969 Unknown [id number] 2.16.8 40.1.416960.3.579.2.93 1969 Unknown [id number] 2.16.8 40.1.860881.3.579.2.93 1969 Unknown [id number] 2.16.8 40.1.469092.3.579.2.93 1969 Unknown [id number] 2.16.8 40.1.592435.3.579.2.93 1969 Unknown [id number] 2.16.8 40.1.949270.3.579.2.93 1969 Unknown [id number] 2.16.8 40.1.195396.3.579.2.93 1969 Unknown [id number] 2.16.8 40.1.648020.3.579.2.93 1969 Unknown [id number] 2.16.8 40.1.465705.3.579.2.93 1969 Unknown [id number] 2.16.8 40.1.253053.3.579.2.93 1969 Unknown [id number] 2.16.8 40.1.823822.3.579.2.93 1969 Unknown [id number] 2.16.8 40.1.211853.3.579.2.93 1969 Unknown [id number] 2.16.8 40.1.454087.3.579.2.93 1969 Unknown [id number] 2.16.8 40.1.055971.3.579.2.1285 1969 Unknown [id number] 2.16.8 40.1.326990.3.579.2.1285 1969 Unknown [id number] 2.16.8 40.1.496675.3.579.2.1285 1969 Unknown [id number] 2.16.8 40.1.430324.3.579.2.1285 1969 Unknown [id number] 2.16.8 40.1.033336.3.579.2.1285 1969 Unknown [id number] 2.16.8 40.1.648119.3.579.2.1285 1969 Unknown [id number] 2.16.8 40.1.486231.3.579.2.1285 1969 Unknown [id number] 2.16.8 40.1.346835.3.579.2.1286 1969 Unknown [id number] 2.16.8 40.1.496236.3.579.2.1286 1969 Unknown [id number] 2.16.8 40.1.105922.3.579.2.1286 1969 Unknown [id number] 2.16.8 40.1.039980.3.579.2.1286 1969 Unknown [id number] 2.16.8 40.1.563968.3.579.2.1286 1969 Unknown [id number] 2.16.84 0.1.318042.3.579.2.1286 1969 Unknown [id number] 2.16.840 .1.399964.3.579.2.1286 1969 Unknown [id number] 2.16.8 40.1.261101.3.579.2.1286 1969 Unknown [id number] 2.16. 840.1.884714.3.579.2.196 1969 Unknown [id number] 2.16. 840.1.123943.3.579.2.196 1969 Unknown [id number] 2.16. 840.1.787577.3.579.2.196 1969 Unknown [id number] 2.16. 840.1.788328.3.579.2.196 1969 Unknown [id number] 2.16. 840.1.613079.3.579.2.196 1969 Unknown [id number] 2.16. 840.1.352023.3.579.2.196 1969 Unknown [id number] 2.16. 840.1.537660.3.579.2.196 1969 Unknown [id number] 2.16. 840.1.958858.3.579.2.196 1969 Unknown [id number] 2.16.8 40.1.439020.3.579.2.1286 1969 Unknown [id number] 2.16.8 40.1.223568.3.579.2.173 1969 Unknown [id number] 2.16.8 40.1.674768.3.579.2.173 1969 Unknown [id number] 2.16.8 40.1.436038.3.579.2.173 1969 Unknown [id number] 2.16.8 40.1.805573.3.579.2.173 1969 Unknown [id number] 2.16.8 40.1.349976.3.579.2.173 1969 Unknown [id number] 2.16.8 40.1.935613.3.579.2.173 1969 Unknown [id number] 2.16.8 40.1.085250.3.579.2.173 1969 Unknown [id number] 2.16.8 40.1.411029.3.579.2.173 1969 Unknown [id number] 2.16.8 40.1.748337.3.579.2.173 1969 Unknown [id number] 2.16.8 40.1.503453.3.579.2.173 1969 Unknown [id number] 2.16.8 40.1.266218.3.579.2.173 1969 Unknown [id number] 2.16.8 40.1.827455.3.579.2.173 1969 Unknown [id number] 2.16.8 40.1.715494.3.579.2.173 1969 Unknown [id number] 2.16.8 40.1.929404.3.579.2.173 1969 Unknown [id number] 2.16.8 40.1.179045.3.579.2.173 1969 Unknown [id number] 2.16.8 40.1.999511.3.579.2.173 1969 Unknown [id number] 2.16.8 40.1.595150.3.579.2.173 1969 Unknown [id number] 2.16.8 40.1.097243.3.579.2.173 1969 Unknown [id number] 2.16.8 40.1.842320.3.579.2.173 1969 Unknown [id number] 2.16.8 40.1.973241.3.579.2.173 Social History Date Type Detail Facility Start: 04-23-2023 End: 08-22-2024 Tobacco smoking status NHIS Never smoked tobacco [facility] Start: 04-23-2023 End: 08-22-2024 Tobacco use and exposure Smokeless tobacco non-user [employer] [facility] Start: 06-21-2023 End: 08-22-2024 Alcohol intake Ex-drinker (finding) [facility] Start: 04-23-2023 End: 05-19-2023 History SDOH Alcohol Frequency 1 [facility] Start: 05-19-2023 History SDOH Alcohol Std Drinks 0 [facility] Start: 04-23-2023 History SDOH Financial 5 [facility] Start: 04-23-2023 History SDOH Transpo rt Non-Med 2 [facility] Start: 02-04-2018 Alcohol Comment on occasion [facility] Start: 1970 Sex Assigned At Not on file B [facility] [employer] Start: 05-19-2023 End: 07-17-2024 History of Social function [employer] Start: 05-19-2023 End: 07-17-2024 Alcohol Use Disorder Identification Test - Consumption [AUDIT-C] [facility] How often to you hav e a drink containing alcohol? Never [facility] How many standard dr inks containing alcohol do you have on a typical day? Patient does not drink [facility] (I/We) worried wheth er (my/our) food would run out before (I/we) got money to buy more. Never true [employer] At any time in the p ast 12 months, were you homeless or living in penitentiary [including now]? No [facility] [employer] Start: 10-24-2023 End: 01-21-2024 Alcohol intake Lifetime non-drinker (finding) [facility] [employer] Tobacco smoking status No Smokin g Status Entered [facility] Maurice Tobacco smoking stat us NHIS Tobacco smoking consumption unknown [facility] NEGATED: Highlighted rowStart: NINF History of tobacco use Passive smoker [facility] Medical Equipment Procedure Code Equipment Code Equipment Origin al Text Equipment Identifier Dates Use to check sug ars once a day [id number] Start: 08-22-2024 End: 09-19-2024 Use with insulin 5 times daily [id number] Start: 08-22-2024 Use to check sug ars once daily [id number] Start: 08-22-2024 Use to check sug ars once a day [id number] Start: 09-19-2024 Use to check sug ars 4 times daily. [id number] Start: 09-20-2024 Goals Date Patient Goal Desired Activity /State Personal health goal Comment on above: Formatting of this n ote might be different from the original. Would like to start walking dogs again Comment on above: Formatting of this n ote might be different from the original. Would like to start walking dogs again Clinical Notes 07-05-2023 to 10-31-2024 Damion Bravo MD - 10/31/2024 4:20 PM ESTTelephone Encounter - Dario Hines RN - 10/24/2024 12:41 PM ESTTelephone Encounter - Dario Hines RN - 10/24/2024 12:41 PM ESTDischarge Instructions Note Date & Type Note Facility 10-31-2024 History of Present illness Narrative Images from the original note were not included. REASON FOR CONSULTATION: Pancreatic diabetes October 31, 2024 I have communicated my name and active licensure. The patient's identity and physical location were verified at the time of this visit. Either the patient or their legal public service representative has been informed of the risks and benefits of -- and alternatives to -- treatment through a remote evaluation and consents to proceed with the evaluation remotely. HISTORY Mr Alin Light is a 53 yo post pancreatectomy diabetes - 1 day got to 40, dealing with post prandial lows - finally on an iLet an doverall doing better - humalog in the iLet Approximate age at diagnosis of diabetes: 2021 Circumstances surrounding the diagnosis:blood work has type 1 diabetes Complications/comorbidities: No complications History of diabetes medications: none Current diabetes medications: Metformin 500 daily Meals and exercise: Mostly carb since staying away fat for IPMN Number of times glucose levels are to be checked: CGM Interpretation: post prandial high worst post breakfast Sometimes a bit of low blood sugar PMH: T2DM, IPMN PSH: NA Social History Tobacco Use Smoking status: Never Passive exposure: Never Smokeless tobacco: Never Vaping Use Vaping status: Never Used Substance Use Topics Alcohol use: Not Currently Drug use: Never No family history on file. Current Outpatient Medications Medication Sig promethazine (PHENERGAN) [...] (BAQSIMI) 3 mg/actuation nasal spray Use 1 Audubon in the nose as needed. May repeat after 15 minutes using a new device if there is no response. glucose 4 gram chewable tablet Take 4 tablets by mouth as needed. Insulin Tuckerman, Disposable, (BD ULTRAFINE III MINI PEN) 31 gauge x 3/16 Use with insulin 5 times daily xffxol-bqunkwog-lqefflq (CREON 36) 36,000-114,000- 180,000 unit delayed release [...] PRN, # 1 EA, 0 Refill(s), Pharmacy: [address] amitriptyline (ELAVIL) 50 mg tablet Take 1 tablet by mouth daily at bedtime. amLODIPine (NORVASC) 2.5 mg tablet Take 1 tablet by mouth once daily. atorvastatin (LIPITOR) 40 mg tablet Take 1 tablet by mouth once daily. azelastine 0.1% nasal spray Use 1 Audubon in each nostril two times a day. [...] Jolynn Hodge [Ondansetron] Bel REVIEW OF SYSTEMS Compared with [...] good support ( has the medtronic) - [employer] for supplies - doing better on iLet - plan for more bolus if highs post breakfast persist - to mitigate lows could move to low target, currently usual 3 month FU Damion Bravo MD October 31, 2024 documented in this encounter [facility] 10-31-2024 Note [facility] 10-24-2024 Telephone encounter Note Called Patient and discussed new pump with him. Patient states he is happy with it and is utilizing meal announcing correctly. No changes made at this time. [facility] Work Phone: 10-24-2024 Miscellaneous Notes Called Patient and discussed new pump with him. Patient states he is happy with it and is utilizing meal announcing correctly. No changes made at this time. documented in this encounter [facility] 10-07-2024 Note [facility] 10-07-2024 History of Present illness Narrative DIABETES SELF-MANAGEMENT EDUCATION AND SUPPORT FOLLOW-UP VISIT Type of Diabetes: Other Location: [facility] [place] Type of visit: In person individual Types of DSMES: Initial/Comprehensive (add to or update ADA spreadsheet) PATIENT'S MAIN CONCERN TODAY: Pump Training Support person present for education today: spouse Cognitive ability: Alert and oriented Motivation to learn: Interested Learning barriers identified by educator: none Method of instruction: written, verbal, demonstration, and computer DIABETES SELF-MANAGEMENT FINDINGS: Monitoring: Dexcom G7 Meal Planning: not discussed Medications: pt states they are currently taking Humalog and Lantus Problem Solving: not discussed Physical Activity: not discussed Reducing Risks: not discussed Healthy Coping: not discussed INTERVENTIONS/TOPICS COVERED: Type of visit: In person individual Patient started today on iLet insulin pump. Type of training:new to pump If upgrade, patient was previously on the following pump:patient is new to pump Pump programming done today by: patient with educator supervision Insulin information: Last long-acting insulin type, dose, and time: Skipped last dose, 48 hrs since last dose. Temp basal rate set today:no temp basal set today Temp basal duration set today:no temp basal set today Rapid-acting insulin loaded into pump today: Humalog See phone encounter dated 10/06 for pump settings approved by provider and programmed into pump today. Infusion set information: Infusion set name: Cotact Detach Infusion set cannula length: 6mm Infusion set insertion done today by:patient with educator supervision Infusion set inserted in right abdomen Pre-pump training and pump safety information: Patient can demonstrate correct use of a carb ratio:Patient carb aware and understands requirements of insulin pump Patient Verbalizes rules regarding when to change infusion set due to hyperglycemia: Yes Patient verbalizes importance of carrying a pump emergency kit:Yes Patient verbalizes back-up plan for pump failure:Yes Handouts provided: None This is a non-billable encounter through [employer] but will be billed to the following pump company: [employer]. This visit note will be communicated to the healthcare provider via access to shared medical record. EDUCATION HANDOUTS: None LEARNING RESPONSE: Diabetes pathophysiology: Not assessed at the visit Healthy eating: Not assessed at the visit Being active: Not assessed at the visit Taking medications: Demonstrated understanding/competency today or at previous visit Monitoring glucose: Demonstrated understanding/competency today or at previous visit Acute complications: Demonstrated understanding/competency today or at previous visit Chronic complications: Not assessed at the visit Healthy coping: Not assessed at the visit Diabetes distress and support: Not assessed at the visit GOAL FOLLOW-UP -Medication goal: MET Patient started iLet Pump today POSSIBLE FUTURE TOPICS: 1. The following topics were not assessed due to time limitations, but should be assessed at the next visit: all areas were assessed today or within the last 12 months. DIABETES EDUCATION PLAN: Individual follow-up will be following up via phone call with the patient in 2-3 days to see how iLet pump is going and answer any questions/address any issues. Time Spent (Minutes): 90 This visit note will be communicated to the healthcare provider via access to shared medical record. 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 May repeat after 15 minutes using a new device if there is no response. glucose 4 gram chewable tablet Take 4 tablets by mouth as needed. Insulin Tuckerman, Disposable, (BD ULTRAFINE III MINI PEN) 31 gauge x 3/16 Use with insulin 5 times daily lftrdr-dqlbnzxq-jsogzom (CREON 36) 36,000-114,000- 180,000 unit delayed release [...] PRN, # 1 EA, 0 Refill(s), Pharmacy: [address] amitriptyline (ELAVIL) 50 mg tablet Take 1 tablet by mouth daily at bedtime. amLODIPine (NORVASC) 2.5 mg tablet Take 1 tablet by mouth once daily. atorvastatin (LIPITOR) 40 mg tablet Take 1 tablet by mouth once daily. azelastine 0.1% nasal spray Use 1 Audubon in each nostril two times a day. [...] asked/not answered Glucose Monitoring: Device: CGM (type: DexGiveForward G7) Checking frequency: continuous (using CGM) Checking [...] 12:34 PM PAGER: documented in this encounter [facility] 10-02-2024 Telephone encounter Note DWO form received from [facility] for Insulin pump. Form completed and submitted to provider for review/signature. [facility] 10-02-2024 Miscellaneous Notes DWO form received from [facility] for Insulin pump. Form completed and submitted to provider for review/signature. documented in this encounter [facility] 09-30-2024 Note [facility] 09-30-2024 History of Present illness Narrative [...] nasal spray Generic drug: glucagon Use 1 Audubon in the nose as needed. May repeat [...] 50 units in insulin pump daily Insulin Tuckerman (Disposable) 31 gauge x 3/16 Commonly known as: BD Ultrafine III Mini Pen Use with insulin 5 times daily Lancets Use to check sugars once daily qtrnom-zdrlunmv-gramogo 36,000-114,000- 180,000 unit delayed release capsule Commonly [...] Your Medications These medications were sent to [facility] [id number] [place] [address] - [address] [facility] [phone] [facility] [place] [id number] [id number] promethazine 25 mg suppository PATHOLOGY FINAL DIAGNOSIS [...] Fowler MD September 30, 2024 11:30 AM [facility] STAFF PHYSICIAN NOTE OF PERSONAL INVOLVEMENT IN [...] in one month. increase PPI, stop Reglan Kayleen Jacobson MD Date of Service: September 30, 2024 Time of Service: 11:28 AM documented in this encounter [facility] 09-30-2024 Note [facility] 09-26-2024 Telephone encounter Note Benji, This [...] would prefer this training gets reassigned. Thanks! [facility] Work Phone: 09-26-2024 Miscellaneous Notes Benji, This patient has received the iLet [...] gets reassigned. Thanks! documented in this encounter [facility] 09-24-2024 Telephone encounter Note Spoke with patient. He is having extreme lows and bottoming out with vomiting, diaphoresis. No sensor. Would recommend that he drop to 17 units and also reduce humalog to 4 units. Also let him know moving forwards to inform me of any issues. Already messaged and texted our rep at [facility]. They will look into situation. I emailed back the form that was requested. He had approval for pump and sensors back on 09/12. Appreciated call and all questions answered. Damion Bravo MD September 24, 2024 [facility] 09-24-2024 Miscellaneous Notes Spoke with patient. He is having extreme lows and bottoming out with vomiting, diaphoresis. No sensor. Would recommend that he drop to 17 units and also reduce humalog to 4 units. Also let him know moving forwards to inform me of any issues. Already messaged and texted our rep at [facility]. They will look into situation. I emailed back the form that was requested. He had approval for pump and sensors back on 09/12. Appreciated call and all questions answered. Damion Bravo MD September 24, 2024 documented in this encounter [facility] 09-24-2024 Telephone encounter Note Received on-call page from cut off machine operator need authorization form for Supplier for urgent supplies jeremias . Called patient, and he connected me in a three-way call with [facility] (supplier) who explained that they needed a [...] call so he can continue conversation with [employer] public service representative independently. Jennifer Jenkins MD Clinical Fellow, Endocrinology [facility] Work Phone: 09-24-2024 Miscellaneous Notes Received on-call page from cut off machine operator need authorization form for Supplier for urgent supplies jeremias . Called patient, and he connected me in a [facility] who explained that they needed a [...] call so he can continue conversation with [facility] public service representative independently. Jennifer Jenkins MD Clinical Fellow, Endocrinology DWO form received from [employer] for insulin infusion catheter and supplies for EXT insulin infusion pump. Form completed and submitted to provider for review/signature. Stephanie Mead Systems Support Engineer II Diabetes & Endocrinology X-20 documented in this encounter [facility] 09-24-2024 Telephone encounter Note DWO form received from [employer] for insulin infusion catheter and supplies for EXT insulin infusion pump. Form completed and submitted to provider for review/signature. Stephanie Mead Systems Support Engineer II Diabetes & Endocrinology X-20 [facility] 09-19-2024 Telephone encounter Note This will be addressed by [employer] and also the medical supplier. I have not had to ever call in authorizations on pumps and do not feel comfortable doing so. Would be better to go through standard protocol here. Damion Bravo MD September 19, 2024 [facility] 09-19-2024 Miscellaneous Notes This will be addressed by [employer] and also the medical supplier. I have not had to ever call in authorizations on pumps and do not feel comfortable doing so. Would be better to go through standard protocol here. Damion Bravo MD September 19, 2024 Received a call from [facility] stating patient would like an insulin pump. However, an insulin pump would require a prior authorization. Agent advised the fastest way to expedite the authorization would be to do this would be via phone. Provider line [phone] Provider/PA team would have to provide: -- recent labs (would not specify which ones) -- what brand/type of pump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 Specialty Services Required 11/21/2023 11/20/2024 1 1 Scheduling Instructions PT 3 times a week for 6 weeks. Specialty Diagnoses / Procedures Referred By Contac t Referred To Contact Rehabilitation Diagnoses Thoracic spondylosis without myelopathy Joana Stratton MD [address] [place] [address] Referral ID Status Reason Start Date Expiration Date Visits Requested Visits Authorized [id number] Pending Review Specialty Services Required 12/24/2023 12/23/2024 1 1 Specialty Diagnoses / Procedures Referred By Contac t Referred To Contact Diagnoses Postlaminectomy syndrome, lumbar region Encounter for long-term opiate analgesic use Thoracic spondylosis without myelopathy Procedures Case request operating room: Bilateral thoracic Radiofrequency ablation T7-8 and T8-9 Joana Stratton MD [address] [facility] [place] [address] Referral ID Status Reason Start Date Expiration Date V isits Requested Visits Authorized [id number] Pending Review 12/24/2023 12/23/2024 1 1 Specialty Diagnoses / Procedures Referred By Contac t Referred To Contact Radiology Diagnoses Cervical spinal stenosis Procedures CT CERVICAL SPINE W CONTRAST Danica Conklin MD [address] [place] [address] Referral ID Status Reason Start Date Expiration Date Visits Re quested Visits Authorized [id number] Closed 04/17/2024 04/17/2025 1 1 Specialty Diagnoses / Procedures Referred By Contac t Referred To Contact Diagnoses IPMN (intraductal papillary mucinous neoplasm) Preoperative examination Procedures REFER TO [facility] - PREOPERATIVE OPTIMIZATION OFFICE/OUTPATIENT [facility] 60 MINUTES Jesus Jacobson MD [address] [place], [place] [phone] Referral ID Status Reason Start Date Expiration Date Visits Requested Visits Authorized [id number] Authorized PCP Requested Referral 08/14/2025 1 1 Specialty Diagnoses / Procedures Referred By Contac t Referred To Contact [facility] Diagnoses IPMN (intraductal papillary mucinous neoplasm) Preoperative examination Procedures ECG COMPLETE ECG ROUTINE ECG W/LEAST 12 LDS W/I&R Jesus Jacobson MD [address] [place] [address] [facility] [address] [place] [address] Referral ID Status Reason Start Date Expiration Date Visits Requested Visits Authorized [id number] New Request Auto-Generat ed Referral 08/14/2025 1 1 Specialty Diagnoses / Procedures Referred By Contac t Referred To Contact Diagnoses IPMN (intraductal papillary mucinous neoplasm) Preoperative examination Procedures CONSULT TO [facility] OFFICE[facility] 60 MINUTES [place]son [place] [id number] [place] [address] Referral ID Status Reason Start Date Expiration Date Visits Requested Visits Authorized [id number] Authorized PCP Requested Referral 4 08/14/2025 1 1 Specialty Diagnoses / Procedures Referred By Kwabena t Referred To Contact Pain Management Diagnoses IPMN (intraductal papillary mucinous neoplasm) Preoperative examination Procedures CONSULT TO PAIN MGT OFFICE/OUTPATIENT [facility] 60 [place] [address] [place] [address] Referral ID Status Reason Start Date Expiration Date Visits Requested Visits Authorized [id number] Authorized PCP Requested Referral 4 08/14/2025 1 1 Additional Source Comments (unrecognized sect ion and content) No Status Records FoundNo Status Records FoundNo Status Records FoundNo Status Records FoundNo Status Records FoundNo Status Records FoundNo Status Records FoundNo Status Records FoundNo Status Records Found INFORMATION SOURCE (unrecogn ized section and content) DATE CREATED AUTHOR 09/27/2020 [facility] DATE CREATED AUTHOR AUTHOR'S ORGANIZ ATION 04/04/2024 [facility] DATE CREATED AUTHOR AUTHOR'S ORGANIZ ATION 05/26/2024 [facility] DATE CREATED AUTHOR AUTHOR'S ORGANIZ ATION 05/29/2024 [facility] DATE CREATED AUTHOR AUTHOR'S ORGANIZ ATION 05/31/2024 [facility] DATE CREATED AUTHOR AUTHOR'S ORGANIZ ATION 07/03/2024 [facility] DATE CREATED AUTHOR AUTHOR'S ORGANIZ ATION 07/13/2024 [facility] DATE CREATED AUTHOR AUTHOR'S ORGANIZ ATION 09/08/2024 [facility] DATE CREATED AUTHOR AUTHOR'S ORGANIZ ATION 11/01/2024 [facility] Care Teams (unrecognized sec tion and content) Catering Administrative Assistant Relationship Specialty Start Date End Date Eliana Springer APRN - MEDICAL COLLECTIONS SPECIALIST [address] [place] [address] PCP - General Certified Nurse Practitioner 04/23/23 Catering Administrative Assistant Relationship Specialty Start Date End Date Eliana Springer APRN - CNP [address] [facility] [address] PCP - General Certified Nurse Practitioner 04/23/23 Catering Administrative Assistant Relationship Specialty Start Date End Date Eliana Springer APRN-CNP [address] [facility] [place] [address] PCP - General Nurse Practitioner 07/16/23 Catering Administrative Assistant Relationship Specialty Start Date End Date Eliana Springer APRN-MEDICAL COLLECTIONS SPECIALIST [address] [facility] [place] [address] PCP - General Nurse Practitioner 07/16/23 Catering Administrative Assistant Relationship Specialty Start Date End Date Elaina Springer APRN-CNP [address] [facility] [place] [address] PCP - General Nurse Practitioner 07/16/23 Catering Administrative Assistant Relationship Specialty Start Date End Date Eliana Springer APRN-CNP [address] [facility] [place] [place] [address] PCP - General Nurse Practitioner 07/16/23 Catering Administrative Assistant Relationship Specialty Start Date End Date Eliana Springer APRN - CNP [address] [facility] [place] [address] PCP - General Certified Nurse Practitioner 04/23/23 Catering Administrative Assistant Relationship Specialty Start Date End Date Eliana Springer APRN-CNP [address] [facility] [place] [address] PCP - General Nurse Practitioner 07/16/23 Catering Administrative Assistant Relationship Specialty Start Date End Date Eliana Springer APRN-MEDICAL COLLECTIONS SPECIALIST [address] [facility] [place] [address] PCP - General Nurse Practitioner 07/16/23 Catering Administrative Assistant Relationship Specialty Start Date End Date Eliana Springer APRN - CNP [address] [facility] [place] [address] PCP - General Certified Nurse Practitioner 04/23/23 Catering Administrative Assistant Relationship Specialty Start Date End Date Eliana Springer APRN - CNP [address] [facility] [place] [address] PCP - General Certified Nurse Practitioner 04/23/23 Catering Administrative Assistant Relationship Specialty Start Date End Date Eliana Springer APRN - CNP [address] [facility] [place] [address] PCP - General Certified Nurse Practitioner 04/23/23 Catering Administrative Assistant Relationship Specialty Start Date End Date Eliana Springer APRN - CNP [address] [facility] [place] [place] [address] PCP - General Certified Nurse Practitioner 04/23/23 Catering Administrative Assistant Relationship Specialty Start Date End Date Eliana Springer APRN - CNP [address] [facility] [place] [place] [address] PCP - General Certified Nurse Practitioner 04/23/23 Catering Administrative Assistant Relationship Specialty Start Date End Date Eliana Springer APRN - CNP [address] [facility] [place] [place] [address] PCP - General Certified Nurse Practitioner 04/23/23 Catering Administrative Assistant Relationship Specialty Start Date End Date Wesly Davies MD [address] [place] [address] Referring Gastroenterology 07/16/24 Catering Administrative Assistant Relationship Specialty Start Date End Date Wesly Davies MD [address] [place], [place] [id number] Referring Gastroenterology 07/16/24 Catering Administrative Assistant Relationship Specialty Start Date End Date Wesly Davies MD [address] [place], [place] [id number] Referring Gastroenterology 07/16/24 Catering Administrative Assistant Relationship Specialty Start Date End Date Wesly Davies MD [address] [place], [place] [phone] Referring Gastroenterology 07/16/24 Catering Administrative Assistant Relationship Specialty Start Date End Date Wesly Dvaies MD [address] [place], [place] [phone] Referring Gastroenterology 07/16/24 Catering Administrative Assistant Relationship Specialty Start Date End Date Wesly Davies MD [address] [place], [place] [phone] Referring Gastroenterology 07/16/24 Catering Administrative Assistant Relationship Specialty Start Date End Date Wesly Davies MD [address] [place], [place] [phone] Referring Gastroenterology 07/16/24 Wesly Davies MD [address] [place], [place] [phone] Referring Gastroenterology 07/25/24 Catering Administrative Assistant Relationship Specialty Start Date End Date Wesly Davies MD [address] [place], [place] [phone] Referring Gastroenterology 07/16/24 Wesly Davies MD [address] [place], [place] 7505840 Referring Gastroenterology 07/25/24 Catering Administrative Assistant Relationship Specialty Start Date End Date Wesly Davies MD [address] [place], [place] [phone] Referring Gastroenterology 07/16/24 Wesly Davies MD [address] [place] [address] Referring Gastroenterology 07/25/24 Catering Administrative Assistant Relationship Specialty Start Date End Date Wesly Davies MD [address] [place], [place] [phone] Referring Gastroenterology 07/16/24 Wesly Davies MD [address] [facility] [place] [phone] Referring Gastroenterology 07/25/24 Catering Administrative Assistant Relationship Specialty Start Date End Date Eliana Springer APRN - MEDICAL COLLECTIONS SPECIALIST [address] [place] [phone] PCP - General Certified Nurse Practitioner 04/23/23 Catering Administrative Assistant Relationship Specialty Start Date End Date Wesly Davies MD [address] [place], [place] [phone] Referring Gastroenterology 07/16/24 Wesly Davies MD [address] [place] [address] Referring Gastroenterology 07/25/24 Catering Administrative Assistant Relationship Specialty Start Date End Date Wesly Davies MD [address] [place], [place] [phone] Referring Gastroenterology 07/16/24 Wesly Davies MD [address] [place] [address] Referring Gastroenterology 07/25/24 Catering Administrative Assistant Relationship Specialty Start Date End Date Wesly Davies MD [address] [place] [address] Referring Gastroenterology 07/16/24 Wesly Davies MD [address] [place] [address] Referring Gastroenterology 07/25/24 Catering Administrative Assistant Relationship Specialty Start Date End Date Eliana Springer, FENCE RIDER.MEDICAL COLLECTIONS SPECIALIST [address] [place] [address] PCP - General Family Medicine 08/15/24 Wesly Davies MD [address] [place], [place] [phone] Referring Gastroenterology 07/16/24 Wesly Davies MD [address] [place] [address] Referring Gastroenterology 07/25/24 Catering Administrative Assistant Relationship Specialty Start Date End Date Eliana Springer FENCE RIDER.MEDICAL COLLECTIONS SPECIALIST [address] [place] [address] PCP - General Family Medicine 08/15/24 Wesly Davies MD [address] [place] [address] Referring Gastroenterology 07/16/24 Wesly Davies MD [address] [place], [place] 0326140 Referring Gastroenterology 07/25/24 Catering Administrative Assistant Relationship Specialty Start Date End Date Eliana Springer, FENCE RIDER.MEDICAL COLLECTIONS SPECIALIST [address] [place] [address] [phone] PCP - General Family Medicine 08/15/24 Wesly Davies MD [address] [place], [place] [phone] Referring Gastroenterology 07/16/24 Wesly Davies MD [address] [place] [address] Referring Gastroenterology 07/25/24 Catering Administrative Assistant Relationship Specialty Start Date End Date Eliana Springer, FENCE RIDER.MEDICAL COLLECTIONS SPECIALIST [address] [place] [address] PCP - General Family Medicine 08/15/24 Wesly Davies MD [address] [facility] [place] [phone] Referring Gastroenterology 07/16/24 Wesly Davies MD [address] [place] [address] Referring Gastroenterology 07/25/24 Catering Administrative Assistant Relationship Specialty Start Date End Date Elinaa Springer, FENCE RIDER.MEDICAL COLLECTIONS SPECIALIST [address] [place] [address] PCP - General Family Medicine 08/15/24 Wesly Davies MD [address] [place] [place], [place] [phone] Referring Gastroenterology 07/16/24 Wesly Davies MD [address] [place], [place] [id number] Referring Gastroenterology 07/25/24 Catering Administrative Assistant Relationship Specialty Start Date End Date Eliana Springer FENCE RIDER.MEDICAL COLLECTIONS SPECIALIST [address] [place], [place] [phone] PCP - General Family Medicine 08/15/24 Wesly Davies MD [address] [place], [place] 6668040 Referring Gastroenterology 07/16/24 Wesly Davies MD [address] [facility] [place] [phone] Referring Gastroenterology 07/25/24 Catering Administrative Assistant Relationship Specialty Start Date End Date Eliana Springer FENCE RIDER.MEDICAL COLLECTIONS SPECIALIST [address] [place] [address] PCP - General Family Medicine 08/15/24 Wesly Davies MD [address] [place], [place] [phone] Referring Gastroenterology 07/16/24 Wesly Davies MD [address] [place] [address] Referring Gastroenterology 07/25/24 Catering Administrative Assistant Relationship Specialty Start Date End Date Eliana Springer, FENCE RIDER.MEDICAL COLLECTIONS SPECIALIST [address] [place] [address] PCP - General Family Medicine 08/15/24 Wesly Davies MD [address] [facility] [place] [address] Referring Gastroenterology 07/16/24 Wesly Davies MD [address] [place] [address] Referring Gastroenterology 07/25/24 Catering Administrative Assistant Relationship Specialty Start Date End Date Eliana Springer APRN - MEDICAL COLLECTIONS SPECIALIST [address] [place] [address] PCP - General Certified Nurse Practitioner 04/23/23 Catering Administrative Assistant Relationship Specialty Start Date End Date Eliana Springer, FENCE RIDER.MEDICAL COLLECTIONS SPECIALIST [address] [place] [address] [phone] PCP - General Family Medicine 08/15/24 Wesly Davies MD [address] [place] [address] Referring Gastroenterology 07/16/24 Wesly Davies MD [address] [place] [address] Referring Gastroenterology 07/25/24 Catering Administrative Assistant Relationship Specialty Start Date End Date Eliana Springre APRN.MEDICAL COLLECTIONS SPECIALIST [address] [place] [address] [place] [address] PCP - General Family Medicine 08/15/24 Wesly Davies MD [address] [facility] [place] [phone] Referring Gastroenterology 07/16/24 Wesly Davies MD [address] [place], [place] [phone] Referring Gastroenterology 07/25/24 Catering Administrative Assistant Relationship Specialty Start Date End Date Eliana Springer, FENCE RIDER.MEDICAL COLLECTIONS SPECIALIST [address] [place] [address] [phone] PCP - General Family Medicine 08/15/24 Wesly Davies MD [address] [place], [place] [phone] Referring Gastroenterology 07/16/24 Wesly Davies MD [address] [place], [place] [phone] Referring Gastroenterology 07/25/24 Catering Administrative Assistant Relationship Specialty Start Date End Date Eliana Springer, FENCE RIDER.MEDICAL COLLECTIONS SPECIALIST [address] [place] [address] [phone] PCP - General Family Medicine 08/15/24 Wesly Davies MD [address] [place], [place] [phone] Referring Gastroenterology 07/16/24 Wesly Davies MD [address] [facility] [place] [phone] Referring Gastroenterology 07/25/24 Catering Administrative Assistant Relationship Specialty Start Date End Date Eliana Springer, FENCE RIDER.MEDICAL COLLECTIONS SPECIALIST [address] [place], [place] [phone] PCP - General Family Medicine 08/15/24 Wesly Davies MD [address] [place], [place] [phone] Referring Gastroenterology 07/16/24 Wesly Davies MD [address] [facility] [place] [id number] Referring Gastroenterology 07/25/24 Catering Administrative Assistant Relationship Specialty Start Date End Date Eliana Springer, FENCE RIDER.MEDICAL COLLECTIONS SPECIALIST [address], [place] [id number] PCP - General Family Medicine 08/15/24 Wesly Davies MD [address] [place], [place] [id number] Referring Gastroenterology 07/16/24 Wesly Davies MD [address] [place], [place] [id number] Referring Gastroenterology 07/25/24 Catering Administrative Assistant Relationship Specialty Start Date End Date Eliana Springer, FENCE RIDER.MEDICAL COLLECTIONS SPECIALIST [address], [place] [id number] PCP - General Family Medicine 08/15/24 Wesly Davies MD [address] [facility] [place] [place] [id number] Referring Gastroenterology 07/16/24 Wesly Davies MD [address] [place], [place] [id number] Referring Gastroenterology 07/25/24 Reason for Visit (unrecogniz ed section and content) Specialty Diagnoses / Procedures Referred By Contramez t Referred To Contact Radiology Diagnoses Preop cardiovascular exam Primary hypertension Mixed hyperlipidemia Intermittent chest pain Procedures Nuclear stress test with myocardial perfusion Uli Strong MD [address] [place] [address] Referral ID Status Reason Start Date Expiration Date Visits Re quested Visits Authorized [id number] Closed 06/29/2023 06/28/2024 3 3 Reason Comments Back Pain Neck Pain Reason Comments Back Pain Neck Pain Reason Comments Back Pain Reason Comments Chest Pain Patient presents wit h complaint of 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 Patient reports that the pain was substernal with radiation to left shoulder and shortness of breath. 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 Follows with [facility] and reports I am supposed to have [...] New Specialty Diagnoses / Procedures Referred By Kwabena t Referred To Contact Diagnoses IPMN (intraductal papillary mucinous neoplasm) Preoperative examination Procedures REFER TO [facility] - PREOPERATIVE OPTIMIZATION OFFICE/OUTPATIENT NEW HIGH [place] 60 [place] [address] [place] [address] Referral ID Status Reason Start Date Expiration Date V isits Requested Visits Authorized [id number] Closed PCP Requested Referral 08/14/2024 08/14/2025 1 1 Reason Comments Radio Gen A21 Reason Comments Research IRB 4746 Reason Comments Patient Update Patient Question Reason Comments Neck Pain Pt states he has sti ff neck. 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 Reason Comments Follow Up Reason Comments Forms Reason Comments Insurance Authorization Insulin Pump [ C MEDICARE] Reason Onset Date Comments Refill Request 09/19/2024 Reason Comments Insulin pump start training Reason Comments Post Op Reason Comments Forms [facility] Insulin pump Reason Comments Diabetes Reason Comments Insulin Pump Start Follow Up Scheduled Active and Recently Administ ered Medications [...] SubLINGual, EVERY 5 MIN PRN, Starting on Sun03/17/24 at 1420, Until Discontinued, Chest pain, Place [...] (New Bag - Prov ider: Jess Hackett RN)2100 (Stopped - Provider: Lucy Alatorre RN) Scheduled [...] or prosecute any alcohol or drug abuse patient.[facility] HospitalIn the event this information is protected by the Federal Confidentiality of Alcohol and Drug Abuse Patient Records regulations: The Federal rules restrict any use of the information to criminally investigate or prosecute any alcohol or drug abuse patient.[facility] HospitalIn the event this information is protected by the Federal Confidentiality of Alcohol and Drug Abuse Patient Records regulations: The Federal rules restrict any use of the information to criminally investigate or prosecute any alcohol or drug abuse patient.[facility] HospitalIn the event this information is protected by the Federal Confidentiality of Alcohol and Drug Abuse Patient Records regulations: The Federal rules restrict any use of the information to criminally investigate or prosecute any alcohol or drug abuse patient.[facility] HospitalIn the event this information is protected by the Federal Confidentiality of Alcohol and Drug Abuse Patient Records regulations: The Federal rules restrict any use of the information to criminally investigate or prosecute any alcohol or drug abuse patient.[facility] HospitalIn the event this information is protected by the Federal Confidentiality of Alcohol and Drug Abuse Patient Records regulations: The Federal rules restrict any use of the information to criminally investigate or prosecute any alcohol or drug abuse patient.[facility] HospitalIn the event this information is protected by the Federal Confidentiality of Alcohol and Drug Abuse Patient Records regulations: The Federal rules restrict any use of the information to criminally investigate or prosecute any alcohol or drug abuse patient.[facility] HospitalIn the event this information is protected by the Federal Confidentiality of Alcohol and Drug Abuse Patient Records regulations: The Federal rules restrict any use of the information to criminally investigate or prosecute any alcohol or drug abuse patient.[facility] HospitalIn the event this information is protected by the Federal Confidentiality of Alcohol and Drug Abuse Patient Records regulations: The Federal rules restrict any use of the information to criminally investigate or prosecute any alcohol or drug abuse patient.[facility] HospitalIn the event this information is protected by the Federal Confidentiality of Alcohol and Drug Abuse Patient Records regulations: The Federal rules restrict any use of the information to criminally investigate or prosecute any alcohol or drug abuse patient.[facility] HospitalIn the event this information is protected by the Federal Confidentiality of Alcohol and Drug Abuse Patient Records regulations: The Federal rules restrict any use of the information to criminally investigate or prosecute any alcohol or drug abuse patient.[facility] HospitalIn the event this information is protected by the Federal Confidentiality of Alcohol and Drug Abuse Patient Records regulations: The Federal rules restrict any use of the information to criminally investigate or prosecute any alcohol or drug abuse patient.[facility] HospitalIn the event this information is protected by the Federal Confidentiality of Alcohol and Drug Abuse Patient Records regulations: The Federal rules restrict any use of the information to criminally investigate or prosecute any alcohol or drug abuse patient.[facility] HospitalIn the event this information is protected by the Federal Confidentiality of Alcohol and Drug Abuse Patient Records regulations: The Federal rules restrict any use of the information to criminally investigate or prosecute any alcohol or drug abuse patient.[facility] HospitalIn the event this information is protected by the Federal Confidentiality of Alcohol and Drug Abuse Patient Records regulations: The Federal rules restrict any use of the information to criminally investigate or prosecute any alcohol or drug abuse patient.[facility] HospitalIn the event this information is protected by the Federal Confidentiality of Alcohol and Drug Abuse Patient Records regulations: The Federal rules restrict any use of the information to criminally investigate or prosecute any alcohol or drug abuse patient.[facility] HospitalIn the event this information is protected by the Federal Confidentiality of Alcohol and Drug Abuse Patient Records regulations: The Federal rules restrict any use of the information to criminally investigate or prosecute any alcohol or drug abuse patient.[facility] HospitalIn the event this information is protected by the Federal Confidentiality of Alcohol and Drug Abuse Patient Records regulations: The Federal rules restrict any use of the information to criminally investigate or prosecute any alcohol or drug abuse patient.[facility] HospitalIn the event this information is protected by the Federal Confidentiality of Alcohol and Drug Abuse Patient Records regulations: The Federal rules restrict any use of the information to criminally investigate or prosecute any alcohol or drug abuse patient.[facility] HospitalIn the event this information is protected by the Federal Confidentiality of Alcohol and Drug Abuse Patient Records regulations: The Federal rules restrict any use of the information to criminally investigate or prosecute any alcohol or drug abuse patient.[facility] HospitalIn the event this information is protected by the Federal Confidentiality of Alcohol and Drug Abuse Patient Records regulations: The Federal rules restrict any use of the information to criminally investigate or prosecute any alcohol or drug abuse patient.[facility] HospitalIn the event this information is protected by the Federal Confidentiality of Alcohol and Drug Abuse Patient Records regulations: The Federal rules restrict any use of the information to criminally investigate or prosecute any alcohol or drug abuse patient.[facility] HospitalIn the event this information is protected by the Federal Confidentiality of Alcohol and Drug Abuse Patient Records regulations: The Federal rules restrict any use of the information to criminally investigate or prosecute any alcohol or drug abuse patient.[facility] HospitalIn the event this information is protected by the Federal Confidentiality of Alcohol and Drug Abuse Patient Records regulations: The Federal rules restrict any use of the information to criminally investigate or prosecute any alcohol or drug abuse patient.[facility] HospitalIn the event this information is protected by the Federal Confidentiality of Alcohol and Drug Abuse Patient Records regulations: The Federal rules restrict any use of the information to criminally investigate or prosecute any alcohol or drug abuse patient.[facility] HospitalIn the event this information is protected by the Federal Confidentiality of Alcohol and Drug Abuse Patient Records regulations: The Federal rules restrict any use of the information to criminally investigate or prosecute any alcohol or drug abuse patient.[facility] HospitalIn the event this information is protected by the Federal Confidentiality of Alcohol and Drug Abuse Patient Records regulations: The Federal rules restrict any use of the information to criminally investigate or prosecute any alcohol or drug abuse patient.[facility] HospitalIn the event this information is protected by the Federal Confidentiality of Alcohol and Drug Abuse Patient Records regulations: The Federal rules restrict any use of the information to criminally investigate or prosecute any alcohol or drug abuse patient.[facility] HospitalIn the event this information is protected by the Federal Confidentiality of Alcohol and Drug Abuse Patient Records regulations: The Federal rules restrict any use of the information to criminally investigate or prosecute any alcohol or drug abuse patient.[facility] HospitalIn the event this information is protected by the Federal Confidentiality of Alcohol and Drug Abuse Patient Records regulations: The Federal rules restrict any use of the information to criminally investigate or prosecute any alcohol or drug abuse patient.[facility] HospitalIn the event this information is protected by the Federal Confidentiality of Alcohol and Drug Abuse Patient Records regulations: The Federal rules restrict any use of the information to criminally investigate or prosecute any alcohol or drug abuse patient.[facility] HospitalIn the event this information is protected by the Federal Confidentiality of Alcohol and Drug Abuse Patient Records regulations: The Federal rules restrict any use of the information to criminally investigate or prosecute any alcohol or drug abuse patient.[facility] HospitalIn the event this information is protected by the Federal Confidentiality of Alcohol and Drug Abuse Patient Records regulations: The Federal rules restrict any use of the information to criminally investigate or prosecute any alcohol or drug abuse patient.[facility] HospitalIn the event this information is protected by the Federal Confidentiality of Alcohol and Drug Abuse Patient Records regulations: The Federal rules restrict any use of the information to criminally investigate or prosecute any alcohol or drug abuse patient.[facility] HospitalIn the event this information is protected by the Federal Confidentiality of Alcohol and Drug Abuse Patient Records regulations: The Federal rules restrict any use of the information to criminally investigate or prosecute any alcohol or drug abuse patient.[facility] HospitalIn the event this information is protected by the Federal Confidentiality of Alcohol and Drug Abuse Patient Records regulations: The Federal rules restrict any use of the information to criminally investigate or prosecute any alcohol or drug abuse patient.[facility] HospitalIn the event this information is protected by the Federal Confidentiality of Alcohol and Drug Abuse Patient Records regulations: The Federal rules restrict any use of the information to criminally investigate or prosecute any alcohol or drug abuse patient.[facility] Ordered Prescriptions (unrec ognized section and [...] BE BASED ON THE PRIMARY CLINICAL RECORDS. [employer] provides no warranty or guarantee of the accuracy or completeness of information in this document.
[2024-11-03 07:08] VITALS: BP 119/79; PULSE 77; TEMP 36.3; O2SAT 99
[2024-11-03 08:06] VITALS: BP 114/74; PULSE 91; O2SAT 96
[2024-11-03] MEDS: LIDOCAINE HCL 2% 400 MG/20 ML MDV INJ (08:06)
[2024-11-03] MEDS: BUPIVACAINE HCL 0.25% PF 25 MG/10 ML VIAL 6 ML INJ (08:06)
[2024-11-03 08:07] VITALS: BP 123/83; PULSE 90; O2SAT 100
--- NOTE | 2024-11-03 08:12 | W.PM.PROCNOT ---
Date of procedure: 11/03/24 Pre-op diagnosis: Pain due to thoracic spondylosis without myelopathy Post-op diagnosis: same as pre-op Procedure: Procedure: Bilateral T6-7, 7-8 medial branch block Medications: Bupivacaine 0.25% 6cc The patient was seen and examined in the preoperative holding area.? An informed consent was obtained and placed on the chart.? The patient was brought to the medical procedure unit and placed in the prone position.? A timeout was completed verifying correct patient, procedure site, positioning, plan, and special equipment.? Using aseptic technique, the needle was placed at left T6. Under direct fluoroscopic visualization a Quincke-tipped spinal needle was advanced to the junction of the superior articulating process with the transverse process at the designated medial branch segment.? Preceded by negative aspiration, the above-mentioned injectate was placed in 1 mL aliquots.? The procedure was repeated at left T7, 8.? The needle was removed and insertion site was covered. The same procedure, at the same levels, was completed on the right side. The patient was taken to the postprocedural recovery area and monitored for an appropriate length of time before found suitable for discharge in the company of a responsible adult. Anesthesia: Local Surgeon: Danica Conklin Pathology: none sent Condition: stable Disposition: no change
== END 2024-11-03 08:15 | disposition home or self-care (01) ==
LOC: SURGOUT 06:49
PROVIDERS: PCP Nurse Practitioner Family; Visit Provider Anesthesiology
DX: M47.814 Spondylosis without myelopathy or radiculopathy, thoracic region (principal); E11.9 Type 2 diabetes mellitus without complications
CPT/HCPCS: 64490; 64491; 82948; J0665

== ENCOUNTER 2024-11-13 12:18 | Outpatient (OUT) | payer MEDICARE, MEDICAID, SELFPAY ==
--- NOTE | 2024-11-13 12:43 | PM.CN ---
Consult Note: HPI Data of Consult Patient: known to practice within the last 3 years Requesting Physician: Vanessa Chavez NP Primary Care Provider: Meg Lynn Consult Narrative Reason for consult: neck pain, back pain Narrative: 53yom who presents for assessment of chronic back pain. has continued in chiropractic therapy >6 weeks, without benefit. failed provider guided HEP for 6 weeks. uses tramadol. denies adverse med side effects. recent bilateral C5-6 TFESI >50% improvement ongoing. pt underwent splenectomy and pancreatectomy at [facility], now utilizing an insulin pump for type 1 DM. recently underwent bilateral T6,7 T7,8 MBB #1 and #2 with significant short term relief, noticed 80% improvement in pain as well as functional ability immediately following and 4 hours after the procedure. preop pain up to 05/31, post op pain 10/31 with significant functional improvement. cc:: CC: Vanessa Chavez NP Review of Systems ROS Status of ROS 10 or more systems reviewed and unremarkable except as noted in history and below Musculoskeletal Reports: back pain, neck pain and extremity pain [facility] Medical History (Updated 10/14/24 @ 12:29 by Ibeth Moody RN) Pancreatic cancer ?C25.9 - Malignant neoplasm of pancreas, unspecified (ICD-10) Diabetes ?E11.9 - Type 2 diabetes mellitus without complications (ICD-10) High cholesterol ?E78.00 - Pure hypercholesterolemia, unspecified (ICD-10) Surgical History History of back surgery ?Z98.890 - Other specified postprocedural states (ICD-10) Hx of cholecystectomy ?Z90.49 - Acquired absence of other specified parts of digestive tract (ICD-10) Status post insertion of spinal cord stimulator ?Z96.89 - Presence of other specified functional implants (ICD-10) History of kyphoplasty ?Z98.890 - Other specified postprocedural states (ICD-10) History of splenectomy ?Z90.81 - Acquired absence of spleen (ICD-10) 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 (ICD-10) Meds Home Medications and Allergies Home Medications ?Medication ?Instructions ?Recorded ?Confirmed ?Type amitriptyline 50 mg tablet 50 mg PO DAILY 04/14/24 11/03/24 History amlodipine 2.5 mg tablet 2.5 mg PO DAILY 04/14/24 11/03/24 History atorvastatin 40 mg tablet 40 mg PO DAILY 04/14/24 11/03/24 History cholecalciferol (vitamin D3) 50 10,000 unit PO QWEEK 04/14/24 11/03/24 History mcg (2,000 unit) capsule (D3-2000) fenofibrate 54 mg tablet 54 mg PO DAILY 04/14/24 11/03/24 History ferrous sulfate 325 mg (65 mg 325 mg PO DAILY 04/14/24 11/03/24 History iron) tablet (Feosol) fexofenadine 180 mg tablet 180 mg PO DAILY 04/14/24 11/03/24 History rdqnjr-soekjoky-fukdsza 1 cap PO TID 04/14/24 11/03/24 History 36,000-114,000-180,000 unit capsule,delay rel (Creon) mepolizumab 100 mg/mL subcutaneous mg subcut .MONTHLY 04/14/24 History syringe (Nucala) montelukast 10 mg tablet 10 mg PO DAILY 04/14/24 11/03/24 History omeprazole 40 mg capsule,delayed 40 mg PO DAILY 04/14/24 11/03/24 History release prazosin 1 mg capsule 1 mg PO DAILY 04/14/24 11/03/24 History vitamin B complex (Vitamins B 1 cap PO DAILY 04/14/24 11/03/24 History Complex capsule) ziprasidone HCl 40 mg capsule 40 mg PO .QD 04/14/24 11/03/24 History tramadol 100 mg capsule 100 mg PO DAILY PRN pain #30 caps 10/30/24 11/03/24 Rx 24h,extended release(25-75) tramadol 50 mg tablet See Rx Instructions .Route 10/30/24 11/03/24 Rx .COMPLEX PRN pain #120 tabs Allergies Allergy/AdvReac Type Severity Reaction Status Date / Time codeine Allergy Mild Hives Verified 11/03/24 07:10 ibuprofen Allergy Mild Hives Verified 11/03/24 07:10 naproxen (From Aleve) Allergy Mild Vomiting Verified 11/03/24 07:10 ondansetron (From Zofran) Allergy Mild Hives Verified 11/03/24 07:10 Exam Constitutional Documenting provider has reviewed patient's vital signs: yes Common normals: no apparent distress, oriented x3, healthy appearing, alert and well nourished General appearance: cooperative HENMT Common normals: normocephalic, hearing grossly normal bilaterally and moist oral mucous membranes Head and scalp: normocephalic Eye Common normals: PERRL Pupil: PERRL Neck & C-Spine Common normals: full ROM General: normal visual inspection Chest Common normals: inspection of chest normal Respiratory Common normals: normal respiratory effort, no retractions and no use of accessory muscles Back & Pelvis Thoracic spine/upper back: thoracic ROM normal, pain with ROM and thoracic spinal tenderness; no paraspinal muscle tenderness and no paraspinal muscle spasm Other: positive facet loading pain increased T6-9 facets negative radiculopathy Neuro Common normals: oriented x3, CN's II-XII intact bilaterally, moves all extremities, no focal motor deficits, no sensory deficits noted and deep tendon reflexes 2+ bilaterally Sensorium/orientation: alert Motor exam: strength 5/5 throughout and no movement abnormalities noted Psych Common normals: mental status grossly normal, thought process normal, cooperative, affect normal, speech normal and activity/motor behavior normal Speech: normal speech Thought process: normal thought process Results Additional Findings Additional findings: If on a controlled substance or opioids, I have checked an [place] report on this patient and there are no aberrancies noted in the prescribing history.??If on a controlled substance or opioid a drug screen was completed and reviewed within the last year, and if there has not been a drug screen completed we ordered one today to monitor higher risk, state monitored pain medication use. As part of providing excellent, safe, comprehensive care, the following was completed at our patient's visit: 1. A medication reconciliation and review to ensure accurate knowledge of current/active medications, including asking our patients to inform us about any shru-lfb-[id number] medications or herbal remedies/nutritional supplements/alternative remedies. 2. A review to specifically ensure our patients have had annual screening for screening for depression, screening for tobacco use, and screening for unhealthy alcohol use. For concerning screenings had a discussion with the patient, provided patient education, and recommended follow-up with primary care provider when appropriate. If patient noted with a risk of falling, they received education on strength, gait, and balance training to prevent future risk of falling. Portions of this note may have been carried over from the previous visit and updated as appropriate. Please note this office utilizes paper charting in addition to the electronic medical record. A list of current medications, vitals, and PMH is available there as the clinical staff outside of myself do not have access to [employer] charting during the clinic day operations. As part of providing quality comprehensive care the current medications, vitals, and PMH were reviewed in the paper chart. Assessment and Plan Assessment and Plan (1) Thoracic spondylosis: (2) Chronic use of opiate drug for therapeutic purpose: (3) Failed back syndrome: (4) Insomnia: (5) PTSD (post-traumatic stress disorder): (6) Chronic prescription benzodiazepine use: Plan left then right T6,7 T7,8 facet medial branch RFA under fluoroscopy risks vs benefits of current medication regimen discussed, patient has been on his current regimen for many years without side effects. patient has narcan available at home. Patient is on clonazepam 1/2-1mg HS due to chronic severe insomnia refractory to multiple medications and it is his only relief to assist in sleep. Patient has failed numerous non opioid medications and has had back surgery and spinal cord stimulator placed yet continues to have moderate to severe pain requiring opioids. continue current medication regimen continue f/u with [employer] for spinal cord stimulator setting adjustments PRN continue f/u with endocrinology and surgical team as planned f/u 1 month after RFAs complete
== END 2024-11-13 12:19 | disposition home or self-care (01) ==
LOC: PM 12:19
PROVIDERS: PCP Nurse Practitioner Family; Visit Provider Nurse Practitioner
DX: M47.814 Spondylosis without myelopathy or radiculopathy, thoracic region (principal); Z79.891 Long term (current) use of opiate analgesic; M96.1 Postlaminectomy syndrome, not elsewhere classified; G47.09 Other insomnia; F43.10 Post-traumatic stress disorder, unspecified
CPT/HCPCS: G0463

== ENCOUNTER 2024-11-24 08:53 | Day surgery (SDC) | payer MEDICARE, MEDICAID, SELFPAY ==
--- OUTSIDE RECORDS SUMMARY | 2024-11-24 09:11 | XMS_ITS | CCD ---
Author Organization [facility] Care Team Providers Care Military Equipment Specialist Name Role Phone DEMACRUS REID Primary Care Unavailable JEANETTE, DEMARCUS Primary [...] Unavailable JEANETTE, DEMARCUS Primary Care Unavailable Gian Eliana MANUEL CNP Primary Care Provid er Gian SULLIVAN-Eliana MUSTAFA Primary Care Provider MOGHAL, JOANA N Attending Unavailable ELIANA SPRINGER Referring Unavailable ELIANA SPRINGER Primary Care Unavailable MOGHAL, JOANA N Admitting Unavailable MOGHAL, JOANA N Attending Unavailable MOGHAL, JOANA N Referring Unavailable ELIANA SPRINGER Primary Care Unavailable MOGHAL, JOANA N Attending Unavailable MOGHAL, JOANA N Referring Unavailable ELIANA SPRINGER Primary Care Unavailable MIGDALIA ART Attending Unavailable ELIANA SPRINGER Primary Care Unavailable MOGHAL, JOANA N Attending Unavailable ELIANA SPRINGER Referring Unavailable ELIANA SPRINGER Primary Care Unavailable MOGHAL, JOANA N Attending Unavailable MOGHAL, JOANA N Referring Unavailable ELIANA SPRINGER Primary Care Unavailable FABIOLA ROMANO Attending Unavailable ELIANA SPRINGER Referring Unavailable ELIANA SPRINGER Primary Care Unavailable FABIOLA ROMANO Attending Unavailable ELIANA SPRINGER Referring Unavailable ELIANA SPRINGER Primary Care Unavailable MOGHAL, JOANA N Admitting Unavailable MOGHAL, JOANA N Attending Unavailable MOGHAL, JOANA N Referring Unavailable GIAN, ELIANA L Primary Care Unavailable MOGHAL, JOANA N Attending Unavailable MOGHAL, JOANA N Referring Unavailable GIAN, ELIANA L Primary Care Unavailable MOGHAL, JOANA N Referring Unavailable GIAN, ELIANA L Primary Care Unavailable MOGHAL, JOANA N Attending Unavailable GIAN, ELIANA L Referring Unavailable GIAN, ELIANA L Primary Care Unavailable FABIOLA ROMANO Referring Unavailable GIAN, ELIANA Palomo Primary Care Unavailable ANNALISELAURI Ring Admitting Unavailable ANNALISELAURI Attending Unavailable REF PROV, NOT IN SYSTEM Referring Unavaila ble GIAN, ELIANA L Primary Care Unavailable BASISJOSHUA, LAURI Harper Consulting Unavailable GIAN, ELIANA Palomo Referring Unavailable GIAN, ELIANA L Primary Care Unavailable Cristal Paul Attending Unavailable NALUIS F PEDRAZA Admitting Unavailable NAWRLUIS F PARHAM Attending Unavailable WESLY DAVIES Referring Unavailable Gian BOWLING FLOOR MANAGER - SPUD GRADER, Eliana Palomo Primary Care Provid er Wesly Davies MD Unavailable [phone] Wesly Davies MD Unavailable Gian BOWLING FLOOR MANAGER.SPUD GRADER, Eliana Stacia Primary Care Provider GIAN, ELIANA Palomo Primary Care Unavailable TEGAN HUTCHINS Attending Unavailable GIAN, ELIANA L Primary Care Unavailable SHE MEAD Referring Unavailable GIAN, ELIANA L Referring Unavailable GIAN, ELIANA L Primary Care Unavailable MAX DELONG JR Attending Unavailable GIAN, ELIANA L Primary Care Unavailable GIAN, ELIANA L Primary Care Unavailable GIAN, ELIANA L Primary Care Unavailable DARIUSZ LAMBERT Attending Unavailable KRISTYN MILLER Attending Unavailable GIAN, ELIANA L Primary Care Unavailable OCTAVIO CHATTERJEE Referring Unavailable GIAN, ELIANA L Primary Care Unavailable GIAN, ELIANA L Primary Care Unavailable LAUREN GUTIERREZ Referring Unavailable GIAN, ELIANA L Primary Care Unavailable MIGHT, SARY W Referring Unavailable GIAN, ELIANA L Primary Care Unavailable MIGHT, SARY W Referring Unavailable GIAN, ELIANA L Primary Care Unavailable GIAN, ELIANA L Referring Unavailable GIAN, ELIANA L Primary Care Unavailable GIAN, ELIANA L Referring Unavailable GIAN, ELIANA L Primary Care Unavailable GIAN, ELIANA L Referring Unavailable IACOBIRVIN Admitting Unavailable IACIRVIN PARKER Attending Unavailable GIAN, ELIANA L Primary Care Unavailable SOFIA SMITH Attending Unavailable GIAN, ELIANA L Primary Care Unavailable GIAN, [facility] Primary Care Unavailable GIAN, [facility] Primary Care Unavailable GIEDRAITIS, ANDRIUS Referring Unavailable GIAN, [facility] Primary Care Unavailable SOFIA SMITH Attending Unavailable GIAN, [facility] Primary Care Unavailable TAMIKO SARAVIA Admitting Unavailable TAMIKO SARAVIA Attending Unavailable KAJAL STEWART Attending Unavailable JACOBSON, R KASSIDY Referring Unavailable GIAN, [facility] Primary Care Unavailable DAMION BRAVO Attending Unavailable GIAN, [facility] Primary Care Unavailable JACOBSON, R KASSIDY Referring Unavailable JACOBSON, R KASSIDY Attending Unavailable GIAN, [facility] Primary Care Unavailable JACOBSON, R KASSIDY Attending Unavailable GIAN, [facility] Primary Care Unavailable MODESTO DUNLAP Referring Unavailable EMILEE SUAREZ Attending Unavaila ble JACOBSON, R KASSIDY Referring Unavailable GIAN, [facility] Primary Care Unavailable JACOBSON, R KASSIDY Attending Unavailable JACOBSON, R KASSIDY Admitting Unavailable JACOBSON, R KASSIDY Referring Unavailable GIAN, [facility] Primary Care Unavailable GIAN, [facility] Primary Care Unavailable DAMION BRAVO Attending Unavailable JACOBSON, R KASSIDY Referring Unavailable GIAN, [facility] Primary Care Unavailable JACOBSON, R KASSIDY Referring Unavailable GIAN, [facility] Primary Care Unavailable JACOBSON, R KASSIDY Referring Unavailable GIAN, [facility] Primary Care Unavailable JACOBSON, R KASSIDY Referring Unavailable GIAN, [facility] Primary Care Unavailable GINA, [facility] Primary Care Unavailable DAMION BRAVO Attending Unavailable Wesly Davies MD Attending Unavailable Gian [facility], [facility] Primary Care Unava ilable Rubin REARDON, Danica Arnold Attending Unavailable Gian BOWLING FLOOR MANAGER-[facility], [facility] Primary Care Unava ilable Gimatratracy REARDON, Danica Arnold Attending Unavailable Gian BOWLING FLOOR MANAGER-[facility], [facility] Primary Care Unava ilable Gian BOWLING FLOOR MANAGER-[facility], [facility] Primary Care Unava ilable Gisg REARDON, Danica Arnold Attending Unavailable Gian BOWLING FLOOR MANAGER-[facility], [facility] Primary Care Unava ilable Gisg REARDON, Stanfordrius Arnold Attending Unavailable Rubin REARDON, Danica Arnold Attending Unavailable Gian [facility], [facility] Primary Care Unava ilable Mickie REARDON, Rob Villagomez Attending Unavailable Gian BOWLING FLOOR MANAGER-[facility], [facility] Primary Care Unava ilable [facility] Primary Care Unava ilable Mickie REARDON, Rob Villagomez Attending Unavailable Samson REARDON, Wesly Crawford Attending Unavailable Gian BOWLING FLOOR MANAGER-SPUD GRADER, [facility] Primary Care Unava ilable [facility] Primary Care Unava joriable Jm REARDON, Jacqueline Ruiz Attending Marnie Schultz MD, Benoit Nagy Consulting Marnie Schilling MD, Adelina Consulting Unavailable Allergies Allergy Classification Reported Allergen(s) Allergy Type Date of Onset Reaction(s) Facility Acetaminophen / Codeine (2 sources) Acetaminophen / Codeine Drug Allergy 4 Hives [facility] Cat Hair Extract (2 sources) Cat Hair Extract Drug Allergy 0 [facility] Work Phone: NSAIDs (2 sources) Ibuprofen Drug Allergy 4 Diarrhea [facility] Ondansetron (2 sources) Ondansetron Drug Allergy 9 Anaphylaxis [facility] Opioid Agonists (2 sources) Codeine Drug Allergy 8 Hives, Nausea And Vomiting [facility] Work Phone: (12 sources) Cat Hair Extract Drug Allergy 0 [facility] Work Phone: (20 sources) Codeine; Translations: [CODEINE] Drug Allergy 8 Hives, Nausea And Vomiting [facility] Work Phone: (20 sources) Ondansetron; Translations: [ONDANSETRON HCL] Drug Allergy 9 Nausea Only, Anaphylaxis [facility] (14 sources) Acetaminophen / Codeine; Translations: [ACETAMINOPHEN-CO DEINE] Drug Allergy 4 Hives, Other (See Comments) [facility] (14 sources) Ibuprofen; Translations: [IBUPROFEN] Drug Allergy 4 Other (See Comments), Diarrhea [facility] (20 sources) Ondansetron; Translations: [ONDANSETRON] Drug Allergy [facility] Repository (1 source) Cat; Translations: [Cats] Propensity to adverse reactions (disorder) [facility] Repository (1 source) Ondansetron; Translations: [Zofran] Drug Allergy [facility] Repository Medications Current Medications Medication Drug Class(es) [...] PRN, # 1 EA, 0 Refill(s), Pharmacy: [facility] 03/25/2024 Active Start: 02-06-2024 take 2 puff(s) by in halation every six hours as needed albuterol sulfate (PROAIR RESPICLICK) 108 (90 Base) MCG/ACT aerosol powder inhalation Indications: Asthma, unspecified asthma severity, unspecified whether complicated, unspecified whether persistent 2 puffs, Inhale, q6hr, PRN, # 1 EA, 0 Refill(s), Pharmacy: [facility] 1 each 0 02/06/2024 Active Start: [...] PRN, # 1 EA, 0 Refill(s), [facility] [address] 1 Inhaler 0 12/13/2018 Active amitriptyline hydrochloride [...] 2 times daily 0 01/25/2024 Active amylase 097822 unt / lipase 62220 unt / protease 200285 unt delayed release oral capsule (20 sources) Start: 08-04-2024 vsxipb-bvsrjjex-yb ylase (CREON 36) 36,000-114,000- 180,000 unit delayed release capsule Take 3 caps by mouth 3 times daily with meals and 1 cap with each snack (2) 330 capsule 11 08/04/2024 Active Start: 02-08-2024 take 1 capsule by [facility] once daily xuihao-vejoeogm-eqveixn (CREON) 35765-475116 units CPEP delayed release capsule Indications: Chronic pancreatitis, unspecified pancreatitis type (HCC) , Medication refill [facility] 94860 units oral delayed release capsule: TAKE 2 CAPSULES WITH MEALS (3 TIMES A DAY) AND 1 CAPSULE WITH SNACKS (1 DAILY). 200 capsule 1 02/08/2024 Active Start: 01-03-2024 take 1 capsule by [facility] once daily womnyi-qxlncryp-fwvdxdo (CREON) 86079-318016 units CPEP delayed release capsule Indications: Chronic pancreatitis, unspecified pancreatitis type (HCC) , Medication refill [facility] 37301 units oral delayed release capsule: TAKE 2 CAPSULES WITH MEALS (3 TIMES A DAY) AND 1 CAPSULE WITH SNACKS (1 DAILY). 180 capsule 1 01/03/2024 Active Start: 11-12-2023 take 1 capsule by [facility] once daily grswhc-bfrmnpqk-exjvuih (CREON) 96696-245745 units CPEP delayed release capsule Indications: Chronic pancreatitis, unspecified pancreatitis type (HCC) , Medication refill [facility] 10433 units oral delayed release capsule: TAKE 2 CAPSULES WITH MEALS (3 TIMES A DAY) AND 1 CAPSULE WITH SNACKS (1 DAILY). 180 capsule 0 11/12/2023 Active Start: 05-24-2023 take 1 capsule by [facility] three times daily at mealtime oyszvg-ekgdjdnz-ngpkkgv (CREON) 09480-094251 units CPEP delayed release capsule Take 1 [...] daily azelastine 0.1% nasal spray Use 1 [place] in each nostril two times a day. [...] 06-18-2024 Cholecalcifero l (VITAMIN D3) 1.25 MG (68120 UT) CAPS Indications: Other fatigue Take 1 capsule by mouth once a week Patient takes 1 time weekly on Fridays 12 capsule 3 06/18/2024 Active Start: 11-13-2023 cholecalcifero l, Vitamin D3, (VITAMIN D3) 1,250 mcg (50,000 unit) cap capsule Take 50,000 Units by mouth. 11/13/2023 Active Start: 11-13-2023 Cholecalcifero l (VITAMIN D3) 1.25 MG (93436 UT) CAPS Take 1 capsule by mouth once a week Patient takes 1 time weekly on Fridays 12 capsule 3 11/13/2023 Active Cholecalciferol (VITAMIN D3) 1.25 MG (40120 UT) CAPS Take by mouth Patient takes [...] every week vitamin D (ERGOCALCIFEROL) 1.25 MG (21600 UT) CAPS capsule Take 1 capsule by [...] Daily, # 30 EA, 11 Refill(s), Pharmacy: [place] [id number] 01/17/2018 Active fluticasone-jose nterol (BREO ELLIPTA) 200-25 mcg/dose inhaler Inhale 1 Inhalation as instructed once daily. Active glucagon 3 mg nasal powder (20 sources) Antihypoglycemic Agent Start: 08-22-2024 glucagon (BAQSIMI) 3 mg/actuation nasal spray Indications: Post-pancreatectomy diabetes (HCC) Use 1 [place] in the nose as needed. 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] Onset: 4 08-30-2024 [...] source) 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[facility]); Translations: [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[facility])] Onset: 4 Viral infection (3 sources) COVID-19; [...] 05-18-2023 05-18-2023 Chronic Other aftercare (1 source) 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; Translations: [USP (current) use of opiate analgesic] Onset: 12-25-2023 [...] lung; Translations: [Other disorders of lung] Resolved: 07-28-2023 07-28-2023 Episodic Other non-traumatic joint disorders (14 sources) [...] Test Name Value Interpretation Reference Range Facility CNPNon 10-10-2024 CNPN Normal [facility] CNNURSEon 10-07-2024 CNNURSE [facility] CNPNon 10-02-2024 CNPN [facility] CNOVon 09-30-2024 CNOV Normal [facility] CNPNon 09-26-2024 CNPN Normal [facility] CNPNon 09-24-2024 CNPN Normal [facility] CNPNon 09-15-2024 CNPN Normal [facility] CNPNon 09-09-2024 CNPN Normal [facility] CNPNon 09-05-2024 CNPN Normal [facility] CONSULT PROGon 09-04-2024 CONSULT PROG Normal [facility] Basic metabolic 2000 panelon 09-03-2024 Anion gap [Moles/Vol] 11 mmol/L Normal 8-15 [facility] Comment on above: Order Comment: Speci men Type: BLOOD SPECIMENOrdering Facility: [facility] Address: [address] [place] [address] Performed By: #### 2 777-1, 24574-2, ####[facility] LABCLIA [id number] [address] [address] [place] Calcium [Mass/Vol] 8.8 mg/dL Normal 8.5-10.2 [facility] Comment on above: Order Comment: Speci men Type: BLOOD SPECIMENOrdering Facility: [facility] Address: [address] [place] [address] Performed By: #### 2 777-1, 18844-3, ####[facility] LABCLIA [id number] [address] [address] [place] Chloride [Moles/Vol] 99 mmol/L Normal 98-107 [facility] Comment on above: Order Comment: Speci men Type: BLOOD SPECIMENOrdering Facility: [facility] Address: [address] [place] [address] Performed By: #### 2 777-1, 59143-1, ####[facility] LABCLIA [id number] [address] [address] [place] CO2 [Moles/Vol] 25 mmol/L Normal 22-30 [facility] Comment on above: Order Comment: Speci men Type: BLOOD SPECIMENOrdering Facility: [facility] Address: [address] [place] [address] Performed By: #### 2 777-1, 15888-2, ####[facility] LABCLIA [id number] [place] [address] [place] Creatinine [Mass/Vol] 0.82 mg/dL Normal 0.73-1.22 [facility] Comment on above: Order Comment: Theo narvaez Type: BLOOD SPECIMENOrdering Facility: [facility] Address: [address] [place] [address] Performed By: #### 2 777-1, 24750-1, ####[facility] LABIA [id number] [address] [place] Creatinine and Glomerular filtration rate.predicted panel (S/P/Bld) 104 mL/min/1.73m??? Normal >=60 [facility] Comment on above: Order Comment: Theo narvaez Type: BLOOD SPECIMENOrdering Facility: [facility] Address: [address] [place] [address] Result Comment: Marisa mated Glomerular Filtration Rate [...] actual GFR. Performed By: #### 2 777-1, 38238-7, ####[facility] LABIA [id number] [place] [address] [place] Glucose [Mass/Vol] 227 mg/dL High 74-99 [facility] Comment on above: Order Comment: Theo narvaez Type: BLOOD SPECIMENOrdering Facility: [facility] Address: [address] [place] [address] Result Comment: The [place] [employer] (ADA) provides guidance for cutoff [...] Standards of Medical Care in Diabetes 2016, [place] [employer]. Diabetes Care. 2016.39(Suppl 1). Performed By: #### 2 777-1, 20709-3, ####[facility] LABCLIA [id number] [address] [address] [place] Potassium [Moles/Vol] 4.3 mmol/L Normal 3.7-5.1 [facility] Comment on above: Order Comment: Speci men Type: BLOOD SPECIMENOrdering Facility: [facility] Address: [address] [place] [address] Performed By: #### 2 777-1, , ####[facility] LABCLIA [id number] [place] [id number] [place] Sodium [Moles/Vol] 135 mmol/L Low 136-144 [facility] Comment on above: Order Comment: Speci men Type: BLOOD SPECIMENOrdering Facility: [facility] Address: [address] [place] [address] Performed By: #### 2 777-1, , ####[facility] LABCLIA [id number] [place] [id number] [place] Urea nitrogen [Mass/Vol] 9 mg/dL Normal 9-24 [facility] Comment on above: Order Comment: Speci men Type: BLOOD SPECIMENOrdering Facility: [facility] Address: [address] [place] [address] Performed By: #### 2 777-1, , ####[facility] LABCLIA [id number] [address] [address] [place] CASE MANAGEMon 09-03-2024 CASE MANAGEM Normal [facility] CBC panel Auto (Bld)on 09-03 Erythrocyte distribution width (RBC) [Ratio] 13.2 % Normal 11.5-15.0 [facility] Comment on above: Order Comment: Speci men Type: BLOOD SPECIMENOrdering Facility: [facility] Address: [address] [place] [address] Performed By: #### 5 8410-2 ####[facility] LABIA [id number] [place] [address] [place] Hematocrit (Bld) [Volume fraction] 25.9 % Low 39.0-51.0 [facility] Comment on above: Order Comment: Speci men Type: BLOOD SPECIMENOrdering Facility: [facility] Address: [address] [place] [address] Performed By: #### 5 8410-2 ####[facility] LABCLIA [id number] [place] [address] [place] Hemoglobin (Bld) [Mass/Vol] 8.3 g/dL Low 13.0-17.0 [facility] Comment on above: Order Comment: Speci men Type: BLOOD SPECIMENOrdering Facility: [facility] Address: [address] [place] [address] Performed By: #### 5 8410-2 ####[facility] LABIA [id number] [place] [address] [place] MCH (RBC) [Entitic mass] 29.1 pg Normal 26.0-34.0 [facility] Comment on above: Order Comment: Speci men Type: BLOOD SPECIMENOrdering Facility: [facility] Address: [address] [place] [address] Performed By: #### 5 8410-2 ####[facility] LABIA [id number] [place] [address] [place] MCHC (RBC) [Mass/Vol] 32.0 g/dL Normal 30.5-36.0 [facility] Comment on above: Order Comment: Speci men Type: BLOOD SPECIMENOrdering Facility: [facility] Address: [address] [place] [address] Performed By: #### 5 8410-2 ####[facility] LABIA [id number] [place] [address] [place] MCV (RBC) [Entitic vol] 90.9 fL Normal 80.0-100.0 [facility] Comment on above: Order Comment: Speci men Type: BLOOD SPECIMENOrdering Facility: [facility] Address: [address] [place] [address] Performed By: #### 5 8410-2 ####[facility] [id number] [place] [address] [place] Nucleated RBC (Bld) [#/Vol] 0.03 10*3/uL High <0.01 [facility] Comment on above: Order Comment: Speci men Type: BLOOD SPECIMENOrdering Facility: [facility] Address: [address] [place] [address] Performed By: #### 5 8410-2 ####[facility] [id number] [place] [address] [place] Platelet mean volume (Bld) [Entitic vol] 9.4 fL Normal 9.0-12.7 [facility] Comment on above: Order Comment: Speci men Type: BLOOD SPECIMENOrdering Facility: [facility] Address: [address] [place] [address] Performed By: #### 5 8410-2 ####[facility] [id number] [place] [address] [place] Platelets (Bld) [#/Vol] 548 10*3/uL High 150-400 [facility] Comment on above: Order Comment: Speci men Type: BLOOD SPECIMENOrdering Facility: [facility] Address: [address] [place] [address] Performed By: #### 5 8410-2 ####[facility] LABCLIA [id number] [place] [id number] [place] RBC (Bld) [#/Vol] 2.85 10*6/uL Low 4.20-6.00 [facility] Comment on above: Order Comment: Speci men Type: BLOOD SPECIMENOrdering Facility: [facility] Address: [address] [place] [address] Performed By: #### 5 8410-2 ####[facility] LABIA [id number] [place] [address] [place] WBC (Bld) [#/Vol] 13.25 10*3/uL High 3.70-11.00 [facility] Comment on above: Order Comment: Speci men Type: BLOOD SPECIMENOrdering Facility: [facility] Address: [address] [place] [address] Performed By: #### 5 8410-2 ####[facility] [id number] [place] [address] [place] CNDSon 09-03-2024 CNDS Normal [facility] CONSULT PROGon 09-03-2024 CONSULT PROG Normal [facility] Magnesium SerPl-mCncon 09-03 Magnesium [Mass/Vol] 1.9 mg/dL Normal 1.7-2.3 [facility] Comment on above: Order Comment: Speci men Type: BLOOD SPECIMENOrdering Facility: [facility] Address: [address] [place] [address] Performed By: #### 2 777-1, 80019-1, 36107-4 ####[facility] LABIA [id number] [place] [id number] [place] NUTRITIONon 09-03-2024 NUTRITION Normal [facility] PT EDon 09-03-2024 PT ED Normal [facility] PT ED Normal [facility] Phosphate SerPl-mCncon 09-03 Phosphate [Mass/Vol] 2.2 mg/dL Low 2.7-4.8 [facility] Comment on above: Order Comment: Speci men Type: BLOOD SPECIMENOrdering Facility: [facility] Address: [address] [place] [address] Performed By: #### 2 777-1, 49103-9, ####[facility] LABCLIA [id number] [place] [address] [place] Basic metabolic 2000 panelon 09-02-2024 Anion gap [Moles/Vol] 13 mmol/L Normal 8-15 [facility] Comment on above: Order Comment: Speci men Type: BLOOD SPECIMENOrdering Facility: [facility] Address: [address] [place] [address] Performed By: #### 2 777-1, , 47174-2 ####[facility] LABCLIA [id number] [place] [id number] [place] Calcium [Mass/Vol] 8.6 mg/dL Normal 8.5-10.2 [facility] Comment on above: Order Comment: Speci men Type: BLOOD SPECIMENOrdering Facility: [facility] Address: [address] [place] [address] Performed By: #### 2 777-1, , 47958-2 ####[facility] LABCLIA [id number] [place] [id number] [place] Chloride [Moles/Vol] 101 mmol/L Normal 98-107 [facility] Comment on above: Order Comment: Speci men Type: BLOOD SPECIMENOrdering Facility: [facility] Address: [address] [place] [address] Performed By: #### 2 777-1, , 36090-6 ####[facility] LABCLIA [id number] [place] [id number] [place] CO2 [Moles/Vol] 25 mmol/L Normal 22-30 [facility] Comment on above: Order Comment: Theo narvaez Type: BLOOD SPECIMENOrdering Facility: [facility] Address: [address] [place] [address] Performed By: #### 2 777-1, , ####[facility] LABCLIA [id number] [place] [address] [place] Creatinine [Mass/Vol] 0.84 mg/dL Normal 0.73-1.22 [facility] Comment on above: Order Comment: Yasmini men Type: BLOOD SPECIMENOrdering Facility: [facility] Address: [address] [place] [address] Performed By: #### 2 777-1, , ####[facility] LABCLIA [id number] [place] [address] [place] Creatinine and Glomerular filtration rate.predicted panel (S/P/Bld) 104 mL/min/1.73m??? Normal >=60 [facility] Comment on above: Order Comment: Theo narvaez Type: BLOOD SPECIMENOrdering Facility: [facility] Address: [address] [place] [address] Result Comment: Marisa mated Glomerular Filtration Rate [...] GFR. Performed By: #### 2 777-1, , ####[facility] LABCLIA [id number] [place] [address] [place] Glucose [Mass/Vol] 119 mg/dL High 74-99 [facility] Comment on above: Order Comment: Yasmini men Type: BLOOD SPECIMENOrdering Facility: [facility] Address: [address] [place] [address] Result Comment: The [place] [employer] (ADA) provides guidance for cutoff [...] Standards of Medical Care in Diabetes 2016, [place] [employer]. Diabetes Care. 2016.39(Suppl 1). Performed By: #### 2 777-1, , 36958-6 ####[facility] LABCLIA [id number] [place] [address] [place] Potassium [Moles/Vol] 3.4 mmol/L Low 3.7-5.1 [facility] Comment on above: Order Comment: Speci men Type: BLOOD SPECIMENOrdering Facility: [facility] Address: [address] [place] [address] Performed By: #### 2 777-1, , ####[facility] LABCLIA [id number] [place] [id number] [place] Sodium [Moles/Vol] 139 mmol/L Normal 136-144 [facility] Comment on above: Order Comment: Speci men Type: BLOOD SPECIMENOrdering Facility: [facility] Address: [address] [place], [place] [id number] Performed By: #### 2 777-1, , ####[facility] LABCLIA [id number] [place] [id number] [place] Urea nitrogen [Mass/Vol] 13 mg/dL Normal 9-24 [facility] Comment on above: Order Comment: Speci men Type: BLOOD SPECIMENOrdering Facility: [facility] Address: [address] [place] [address] Performed By: #### 2 777-1, 77201-2, 37793-8 ####[facility] LABIA [id number] [place] [address] [place] CBC panel Auto (Bld)on 09-02 Erythrocyte distribution width (RBC) [Ratio] 13.0 % Normal 11.5-15.0 [facility] Comment on above: Order Comment: Speci men Type: BLOOD SPECIMENOrdering Facility: [facility] Address: [address] [place] [address] Performed By: #### 5 8410-2 ####[facility] LABIA [id number] [place] [address] [place] Hematocrit (Bld) [Volume fraction] 25.0 % Low 39.0-51.0 [facility] Comment on above: Order Comment: Speci men Type: BLOOD SPECIMENOrdering Facility: [facility] Address: [address] [place] [address] Performed By: #### 5 8410-2 ####[facility] LABIA [id number] [place] [address] [place] Hemoglobin (Bld) [Mass/Vol] 8.0 g/dL Low 13.0-17.0 [facility] Comment on above: Order Comment: Speci men Type: BLOOD SPECIMENOrdering Facility: [facility] Address: [address] [place] [address] Performed By: #### 5 8410-2 ####[facility] LABIA [id number] [place] [address] [place] MCH (RBC) [Entitic mass] 28.9 pg Normal 26.0-34.0 [facility] Comment on above: Order Comment: Speci men Type: BLOOD SPECIMENOrdering Facility: [facility] Address: [address] [place] [address] Performed By: #### 5 8410-2 ####[facility] LABIA [id number] [place] [address] [place] MCHC (RBC) [Mass/Vol] 32.0 g/dL Normal 30.5-36.0 [facility] Comment on above: Order Comment: Speci men Type: BLOOD SPECIMENOrdering Facility: [facility] Address: [address] [place] [address] Performed By: #### 5 8410-2 ####[facility] LABIA [id number] [place] [address] [place] MCV (RBC) [Entitic vol] 90.3 fL Normal 80.0-100.0 [facility] Comment on above: Order Comment: Speci men Type: BLOOD SPECIMENOrdering Facility: [facility] Address: [address] [place] [address] Performed By: #### 5 8410-2 ####[facility] LABIA [id number] [place] [address] [place] Nucleated RBC (Bld) [#/Vol] 0.04 10*3/uL High <0.01 [facility] Comment on above: Order Comment: Speci men Type: BLOOD SPECIMENOrdering Facility: [facility] Address: [address] [place] [address] Performed By: #### 5 8410-2 ####[facility] LABIA [id number] [place] [address] [place] Platelet mean volume (Bld) [Entitic vol] 9.3 fL Normal 9.0-12.7 [facility] Comment on above: Order Comment: Speci men Type: BLOOD SPECIMENOrdering Facility: [facility] Address: [address] [place] [address] Performed By: #### 5 8410-2 ####[facility] LABIA [id number] [place] [address] [place] Platelets (Bld) [#/Vol] 435 10*3/uL High 150-400 [facility] Comment on above: Order Comment: Speci men Type: BLOOD SPECIMENOrdering Facility: [facility] Address: [address] [place] [address] Performed By: #### 5 8410-2 ####[facility] LABCLIA [id number] [place] [address] [place] RBC (Bld) [#/Vol] 2.77 10*6/uL Low 4.20-6.00 [facility] Comment on above: Order Comment: Speci men Type: BLOOD SPECIMENOrdering Facility: [facility] Address: [address] [place] [address] Performed By: #### 5 8410-2 ####[facility] LABIA [id number] [place] [address] [place] WBC (Bld) [#/Vol] 10.80 10*3/uL Normal 3.70-11.00 [facility] Comment on above: Order Comment: Speci men Type: BLOOD SPECIMENOrdering Facility: [facility] Address: [address] [place] [address] Performed By: #### 5 8410-2 ####[facility] LABIA [id number] [place] [address] [place] CONSULT PROGon 09-02-2024 CONSULT PROG Normal [facility] Magnesium SerPl-mCncon 09-02 Magnesium [Mass/Vol] 1.9 mg/dL Normal 1.7-2.3 [facility] Comment on above: Order Comment: Speci men Type: BLOOD SPECIMENOrdering Facility: [facility] Address: [address] [place] [address] Performed By: #### 2 777-1, 85386-7, 33264-2 ####[facility] LABCLIA [id number] [address] [address] [place] Phosphate SerPl-mCncon 09-02 Phosphate [Mass/Vol] 2.5 mg/dL Low 2.7-4.8 [facility] Comment on above: Order Comment: Speci men Type: BLOOD SPECIMENOrdering Facility: [facility] Address: [address] [place] [address] Performed By: #### 2 777-1, 40045-1, 07095-7 ####[facility] LABCLIA [id number] [place] [id number] [place] Basic metabolic 2000 panelon 09-01-2024 Anion gap [Moles/Vol] 14 mmol/L Normal 8-15 [facility] Comment on above: Order Comment: Speci men Type: BLOOD SPECIMENOrdering Facility: [facility] Address: [address] [place] [address] Performed By: #### 2 4321-2, 2777-, ####[facility] LABIA [id number] [place] [id number] [place] Calcium [Mass/Vol] 8.4 mg/dL Low 8.5-10.2 [facility] Comment on above: Order Comment: Speci men Type: BLOOD SPECIMENOrdering Facility: [facility] Address: [address] [place] [address] Performed By: #### 2 4321-2, 2777-, ####[facility] LABIA [id number] [address] [address] [place] Chloride [Moles/Vol] 102 mmol/L Normal 98-107 [facility] Comment on above: Order Comment: Speci men Type: BLOOD SPECIMENOrdering Facility: [facility] Address: [address] [place] [address] Performed By: #### 2 4321-2, 277-, ####[facility] LABCLIA [id number] [address] [address] [place] CO2 [Moles/Vol] 24 mmol/L Normal 22-30 [facility] Comment on above: Order Comment: Speci men Type: BLOOD SPECIMENOrdering Facility: [facility] Address: [address] [place] [address] Performed By: #### 2 4321-2, 2776-10, ####[facility] LABIA [id number] [address] [address] [place] Creatinine [Mass/Vol] 0.73 mg/dL Normal 0.73-1.22 [facility] Comment on above: Order Comment: Speci men Type: BLOOD SPECIMENOrdering Facility: [facility] Address: [address] [place] [address] Performed By: #### 2 4321-2, 2776-10, ####[facility] LABIA [id number] [place] [address] [place] Creatinine and Glomerular filtration rate.predicted panel (S/P/Bld) 108 mL/min/1.73m??? Normal >=60 [facility] Comment on above: Order Comment: Speci men Type: BLOOD SPECIMENOrdering Facility: [facility] Address: [address] [place] [address] Result Comment: Marisa mated Glomerular Filtration Rate [...] actual GFR. Performed By: #### 2 4321-2, 27704-21, ####[facility] LABIA [id number] [address] [address] [place] Glucose [Mass/Vol] 158 mg/dL High 74-99 [facility] Comment on above: Order Comment: Speci men Type: BLOOD SPECIMENOrdering Facility: [facility] Address: [address] [place] [address] Result Comment: The [place] [employer] (ADA) provides guidance for cutoff [...] Standards of Medical Care in Diabetes 2016, [place] [employer]. Diabetes Care. 2016.39(Suppl 1). Performed By: #### 2 4321-2, 27704-21, ####[facility] LABCLIA [id number] [place] [address] [place] Potassium [Moles/Vol] 4.0 mmol/L Normal 3.7-5.1 [facility] Comment on above: Order Comment: Yasmini men Type: BLOOD SPECIMENOrdering Facility: [facility] Address: [address] [place] [address] Performed By: #### 2 4321-2, 27704-21, ####[facility] LABCLIA [id number] [place] [id number] [place] Sodium [Moles/Vol] 140 mmol/L Normal 136-144 [facility] Comment on above: Order Comment: Speci men Type: BLOOD SPECIMENOrdering Facility: [facility] Address: [address] [place] [address] Performed By: #### 2 4321-2, 27704-21, ####[facility] LABCLIA [id number] [place] [id number] [place] Urea nitrogen [Mass/Vol] 14 mg/dL Normal 9-24 [facility] Comment on above: Order Comment: Speci men Type: BLOOD SPECIMENOrdering Facility: [facility] Address: [address] [place] [address] Performed By: #### 2 4321-2, 2777-1, 78327-2 ####[facility] LABCLIA [id number] [place] [address] [place] CASE MANAGEMon 09-01-2024 CASE MANAGEM Normal [facility] CBC panel Auto (Bld)on 09-01 Erythrocyte distribution width (RBC) [Ratio] 13.1 % Normal 11.5-15.0 [facility] Comment on above: Order Comment: Speci men Type: BLOOD SPECIMENOrdering Facility: [facility] Address: [address] [place] [address] Performed By: #### 5 8410-2 ####[facility] LABCLIA [id number] [place] [address] [place] Hematocrit (Bld) [Volume fraction] 24.5 % Low 39.0-51.0 [facility] Comment on above: Order Comment: Speci men Type: BLOOD SPECIMENOrdering Facility: [facility] Address: [address] [place] [address] Performed By: #### 5 8410-2 ####[facility] LABCLIA [id number] [place] [address] [place] Hemoglobin (Bld) [Mass/Vol] 7.8 g/dL Low 13.0-17.0 [facility] Comment on above: Order Comment: Speci men Type: BLOOD SPECIMENOrdering Facility: [facility] Address: [address] [place] [address] Performed By: #### 5 8410-2 ####[facility] LABCLIA [id number] [place] [address] [place] MCH (RBC) [Entitic mass] 29.2 pg Normal 26.0-34.0 [facility] Comment on above: Order Comment: Speci men Type: BLOOD SPECIMENOrdering Facility: [facility] Address: [address] [place] [address] Performed By: #### 5 8410-2 ####[facility] LABIA [id number] [place] [address] [place] MCHC (RBC) [Mass/Vol] 31.8 g/dL Normal 30.5-36.0 [facility] Comment on above: Order Comment: Speci men Type: BLOOD SPECIMENOrdering Facility: [facility] Address: [address] [place] [address] Performed By: #### 5 8410-2 ####[facility] LABCLIA [id number] [place] [address] [place] MCV (RBC) [Entitic vol] 91.8 fL Normal 80.0-100.0 [facility] Comment on above: Order Comment: Speci men Type: BLOOD SPECIMENOrdering Facility: [facility] Address: [address] [place] [address] Performed By: #### 5 8410-2 ####[facility] LABIA [id number] [place] [address] [place] Nucleated RBC (Bld) [#/Vol] 10*3/uL Normal <0.01 [facility] Comment on above: Order Comment: Speci men Type: BLOOD SPECIMENOrdering Facility: [facility] Address: [address] [place] [address] Performed By: #### 5 8410-2 ####[facility] LABCLIA [id number] [place] [address] [place] Platelet mean volume (Bld) [Entitic vol] 9.6 fL Normal 9.0-12.7 [facility] Comment on above: Order Comment: Speci men Type: BLOOD SPECIMENOrdering Facility: [facility] Address: [address] [place] [address] Performed By: #### 5 8410-2 ####[facility] LABIA [id number] [place] [address] [place] Platelets (Bld) [#/Vol] 349 10*3/uL Normal 150-400 [facility] Comment on above: Order Comment: Speci men Type: BLOOD SPECIMENOrdering Facility: [facility] Address: [address] [place] [address] Performed By: #### 5 8410-2 ####[facility] LABIA [id number] [place] [address] [place] RBC (Bld) [#/Vol] 2.67 10*6/uL Low 4.20-6.00 [facility] Comment on above: Order Comment: Speci men Type: BLOOD SPECIMENOrdering Facility: [facility] Address: [address] [place] [address] Performed By: #### 5 8410-2 ####[facility] LABIA [id number] [place] [address] [place] WBC (Bld) [#/Vol] 9.51 10*3/uL Normal 3.70-11.00 [facility] Comment on above: Order Comment: Speci men Type: BLOOD SPECIMENOrdering Facility: [facility] Address: [address] [place] [address] Performed By: #### 5 8410-2 ####[facility] LABIA [id number] [place] [address] [place] CONSULT PROGon 09-01-2024 CONSULT PROG Normal [facility] Magnesium SerPl-mCncon 09-01 Magnesium [Mass/Vol] 1.9 mg/dL Normal 1.7-2.3 [facility] Comment on above: Order Comment: Speci men Type: BLOOD SPECIMENOrdering Facility: [facility] Address: [address] [place] [address] Performed By: #### 2 4321-2, 2776-10, ####[facility] LABCLIA [id number] [address] [address] [place] Phosphate SerPl-mCncon 09-01 Phosphate [Mass/Vol] 2.6 mg/dL Low 2.7-4.8 [facility] Comment on above: Order Comment: Speci men Type: BLOOD SPECIMENOrdering Facility: [facility] Address: [address] [place] [address] Performed By: #### 2 4321-2, 2776-10, ####[facility] LABCLIA [id number] [place] [id number] [place] THERAPY NTon 09-01-2024 THERAPY NT Normal [facility] Basic metabolic 2000 panelon 08-31-2024 Anion gap [Moles/Vol] 12 mmol/L Normal 8-15 [facility] Comment on above: Order Comment: Speci men Type: BLOOD SPECIMENOrdering Facility: [facility] Address: [facility] [place] [address] Performed By: #### 2 4321-2, 2776-10, ####[facility] LABCLIA [id number] [place] [id number] [place] Calcium [Mass/Vol] 8.8 mg/dL Normal 8.5-10.2 [facility] Comment on above: Order Comment: Speci men Type: BLOOD SPECIMENOrdering Facility: [facility] Address: [address] [place] [address] Performed By: #### 2 4321-2, 2776-10, ####[facility] LABCLIA [id number] [address] [address] [place] Chloride [Moles/Vol] 100 mmol/L Normal 98-107 [facility] Comment on above: Order Comment: Speci men Type: BLOOD SPECIMENOrdering Facility: [facility] Address: [address] [place] [address] Performed By: #### 2 4321-2, 2776-10, ####[facility] LABCLIA [id number] [address] [address] [place] CO2 [Moles/Vol] 29 mmol/L Normal 22-30 [facility] Comment on above: Order Comment: Speci men Type: BLOOD SPECIMENOrdering Facility: [facility] Address: [address] [place] [address] Performed By: #### 2 4321-2, 2776-10, ####[facility] LABCLIA [id number] [place] [address] [place] Creatinine [Mass/Vol] 0.80 mg/dL Normal 0.73-1.22 [facility] Comment on above: Order Comment: Speci men Type: BLOOD SPECIMENOrdering Facility: [facility] Address: [address] [place] [address] Performed By: #### 2 4321-2, 2776-10, ####[facility] LABCLIA [id number] [place] [address] [place] Creatinine and Glomerular filtration rate.predicted panel (S/P/Bld) 105 mL/min/1.73m??? Normal >=60 [facility] Comment on above: Order Comment: Speci men Type: BLOOD SPECIMENOrdering Facility: [facility] Address: [address] [place] [address] Result Comment: Marisa mated Glomerular Filtration Rate [...] actual GFR. Performed By: #### 2 4321-2, 2776-, ####[facility] LABCLIA [id number] [address] [address] [place] Glucose [Mass/Vol] 190 mg/dL High 74-99 [facility] Comment on above: Order Comment: Speci men Type: BLOOD SPECIMENOrdering Facility: [facility] Address: [address] [place] [address] Result Comment: The [place] [employer] (ADA) provides guidance for cutoff [...] Standards of Medical Care in Diabetes 2016, [place] [employer]. Diabetes Care. 2016.39(Suppl 1). Performed By: #### 2 4321-2, 2776-10, ####[facility] LABCLIA [id number] [place] [id number] [place] Potassium [Moles/Vol] 4.0 mmol/L Normal 3.7-5.1 [facility] Comment on above: Order Comment: Speci men Type: BLOOD SPECIMENOrdering Facility: [facility] Address: [address] [place] [address] Performed By: #### 2 4321-2, 27704-21, ####[facility] LABCLIA [id number] [place] [id number] [place] Sodium [Moles/Vol] 141 mmol/L Normal 136-144 [facility] Comment on above: Order Comment: Speci men Type: BLOOD SPECIMENOrdering Facility: [facility] Address: [address] [place] [address] Performed By: #### 2 4321-2, 2777-1, ####[facility] LABCLIA [id number] [place] [address] [place] Urea nitrogen [Mass/Vol] 12 mg/dL Normal 9-24 [facility] Comment on above: Order Comment: Speci men Type: BLOOD SPECIMENOrdering Facility: [facility] Address: [address] [place] [address] Performed By: #### 2 4321-2, 2777-1, ####[facility] LABCLIA [id number] [place] [address] [place] CBC panel Auto (Bld)on 08-31 Erythrocyte distribution width (RBC) [Ratio] 13.1 % Normal 11.5-15.0 [facility] Comment on above: Order Comment: Speci men Type: BLOOD SPECIMENOrdering Facility: [facility] Address: [address] [place] [address] Performed By: #### 5 8410-2 ####[facility] LABIA [id number] [place] [address] [place] Hematocrit (Bld) [Volume fraction] 25.9 % Low 39.0-51.0 [facility] Comment on above: Order Comment: Speci men Type: BLOOD SPECIMENOrdering Facility: [facility] Address: [address] [place] [address] Performed By: #### 5 8410-2 ####[facility] LABIA [id number] [place] [id number] [place] Hemoglobin (Bld) [Mass/Vol] 8.3 g/dL Low 13.0-17.0 [facility] Comment on above: Order Comment: Speci men Type: BLOOD SPECIMENOrdering Facility: [facility] Address: [address] [place] [address] Performed By: #### 5 8410-2 ####[facility] [id number] [place] [address] [place] MCH (RBC) [Entitic mass] 29.4 pg Normal 26.0-34.0 [facility] Comment on above: Order Comment: Speci men Type: BLOOD SPECIMENOrdering Facility: [facility] Address: [address] [place] [address] Performed By: #### 5 8410-2 ####[facility] [id number] [place] [address] [place] MCHC (RBC) [Mass/Vol] 32.0 g/dL Normal 30.5-36.0 [facility] Comment on above: Order Comment: Speci men Type: BLOOD SPECIMENOrdering Facility: [facility] Address: [address] [place] [address] Performed By: #### 5 8410-2 ####[facility] [id number] [place] [address] [place] MCV (RBC) [Entitic vol] 91.8 fL Normal 80.0-100.0 [facility] Comment on above: Order Comment: Speci men Type: BLOOD SPECIMENOrdering Facility: [facility] Address: [address] [place] [address] Performed By: #### 5 8410-2 ####[facility] [id number] [place] [address] [place] Nucleated RBC (Bld) [#/Vol] 10*3/uL Normal <0.01 [facility] Comment on above: Order Comment: Speci men Type: BLOOD SPECIMENOrdering Facility: [facility] Address: [address] [place] [address] Performed By: #### 5 8410-2 ####[facility] [id number] [place] [address] [place] Platelet mean volume (Bld) [Entitic vol] 9.6 fL Normal 9.0-12.7 [facility] Comment on above: Order Comment: Speci men Type: BLOOD SPECIMENOrdering Facility: [facility] Address: [address] [place] [address] Performed By: #### 5 8410-2 ####[facility] [id number] [place] [address] [place] Platelets (Bld) [#/Vol] 277 10*3/uL Normal 150-400 [facility] Comment on above: Order Comment: Speci men Type: BLOOD SPECIMENOrdering Facility: [facility] Address: [address] [place] [address] Performed By: #### 5 8410-2 ####[facility] [id number] [place] [address] [place] RBC (Bld) [#/Vol] 2.82 10*6/uL Low 4.20-6.00 [facility] Comment on above: Order Comment: Speci men Type: BLOOD SPECIMENOrdering Facility: [facility] Address: [address] [place] [address] Performed By: #### 5 8410-2 ####[facility] [id number] [place] [address] [place] WBC (Bld) [#/Vol] 14.25 10*3/uL High 3.70-11.00 [facility] Comment on above: Order Comment: Speci men Type: BLOOD SPECIMENOrdering Facility: [facility] Address: [address] [place] [address] Performed By: #### 5 8410-2 ####[facility] [id number] [place] [address] [place] CONSULT PROGon 08-31-2024 CONSULT PROG Normal [facility] Magnesium SerPl-mCncon 08-31 Magnesium [Mass/Vol] 2.0 mg/dL Normal 1.7-2.3 [facility] Comment on above: Order Comment: Speci men Type: BLOOD SPECIMENOrdering Facility: [facility] Address: [address] [place] [address] Performed By: #### 2 4321-2, 2777-1, ####[facility] [id number] [place] [address] [place] Phosphate SerPl-mCncon 08-31 Phosphate [Mass/Vol] 2.8 mg/dL Normal 2.7-4.8 [facility] Comment on above: Order Comment: Speci men Type: BLOOD SPECIMENOrdering Facility: [facility] Address: [address] [place] [address] Performed By: #### 2 4321-2, 2777-1, ####[facility] [id number] [place] [address] [place] C peptide SerPl-mCncon 08-30 C peptide [Mass/Vol] 0.2 ng/mL Low 1.1-4.4 [facility] Comment on above: Order Comment: Speci men Type: BLOOD SPECIMENOrdering Facility: [facility] Address: [address] [place] [address] Performed By: #### 1 986-9 ####[facility] [id number] [place] [address] [place] CBC W Auto Differential pane l (Bld)on 08-30-2024 Basophils (Bld) [#/Vol] 0.05 10*3/uL Normal <0.11 [facility] Comment on above: Order Comment: Speci men Type: BLOOD SPECIMENOrdering Facility: [facility] Address: [address] [place] [address] Performed By: #### 5 7021-8 ####[facility] [id number] [place] [address] [place] Basophils/100 WBC (Bld) 0.3 % Normal [facility] Comment on above: Order Comment: Speci men Type: BLOOD SPECIMENOrdering Facility: [facility] Address: [address] [place] [address] Performed By: #### 5 7021-8 ####[facility] [id number] [place] [address] [place] Differential cell count method Nom (Bld) Auto Normal [facility] Comment on above: Order Comment: Speci men Type: BLOOD SPECIMENOrdering Facility: [facility] Address: [address] [place] [address] Performed By: #### 5 7021-8 ####[facility] [id number] [place] [address] [place] Eosinophils (Bld) [#/Vol] 0.05 10*3/uL Normal <0.46 [facility] Comment on above: Order Comment: Speci men Type: BLOOD SPECIMENOrdering Facility: [facility] Address: [address] [place] [address] Performed By: #### 5 7021-8 ####[facility] [id number] [place] [address] [place] Eosinophils/100 WBC (Bld) 0.3 % Normal [facility] Comment on above: Order Comment: Speci men Type: BLOOD SPECIMENOrdering Facility: [facility] Address: [address] [place] [address] Performed By: #### 5 7021-8 ####[facility] [id number] [place] [address] [place] Erythrocyte distribution width (RBC) [Ratio] 13.1 % Normal 11.5-15.0 [facility] Comment on above: Order Comment: Speci men Type: BLOOD SPECIMENOrdering Facility: [facility] Address: [address] [place] [address] Performed By: #### 5 7021-8 ####[facility] [id number] [place] [address] [place] Hematocrit (Bld) [Volume fraction] 21.9 % Low 39.0-51.0 [facility] Comment on above: Order Comment: Speci men Type: BLOOD SPECIMENOrdering Facility: [facility] Address: [address] [place] [address] Performed By: #### 5 7021-8 ####[facility] [id number] [place] [address] [place] Hemoglobin (Bld) [Mass/Vol] 7.2 g/dL Low 13.0-17.0 [facility] Comment on above: Order Comment: Speci men Type: BLOOD SPECIMENOrdering Facility: [facility] Address: [address] [place] [address] Performed By: #### 5 7021-8 ####[facility] [id number] [place] [address] [place] Immature granulocytes (Bld) [#/Vol] 0.06 10*3/uL Normal <0.10 [facility] Comment on above: Order Comment: Speci men Type: BLOOD SPECIMENOrdering Facility: [facility] Address: [address] [place] [address] Performed By: #### 5 7021-8 ####[facility] [id number] [place] [address] [place] Immature granulocytes/100 WBC (Bld) 0.4 % Normal [facility] Comment on above: Order Comment: Speci men Type: BLOOD SPECIMENOrdering Facility: [facility] Address: [address] [place] [address] Performed By: #### 5 7021-8 ####[facility] [id number] [place] [id number] [place] Lymphocytes (Bld) [#/Vol] 1.59 10*3/uL Normal 1.00-4.00 [facility] Comment on above: Order Comment: Speci men Type: BLOOD SPECIMENOrdering Facility: [facility] Address: [address] [place] [address] Performed By: #### 5 7021-8 ####[facility] [id number] [place] [address] [place] Lymphocytes/100 WBC (Bld) 9.8 % Normal [facility] Comment on above: Order Comment: Speci men Type: BLOOD SPECIMENOrdering Facility: [facility] Address: [address] [place] [address] Performed By: #### 5 7021-8 ####[facility] [id number] [place] [address] [place] MCH (RBC) [Entitic mass] 29.0 pg Normal 26.0-34.0 [facility] Comment on above: Order Comment: Speci men Type: BLOOD SPECIMENOrdering Facility: [facility] Address: [address] [place] [address] Performed By: #### 5 7021-8 ####[facility] [id number] [place] [address] [place] MCHC (RBC) [Mass/Vol] 32.9 g/dL Normal 30.5-36.0 [facility] Comment on above: Order Comment: Speci men Type: BLOOD SPECIMENOrdering Facility: [facility] Address: [address] [place] [address] Performed By: #### 5 7021-8 ####[facility] [id number] [place] [address] [place] MCV (RBC) [Entitic vol] 88.3 fL Normal 80.0-100.0 [facility] Comment on above: Order Comment: Speci men Type: BLOOD SPECIMENOrdering Facility: [facility] Address: [address] [place] [address] Performed By: #### 5 7021-8 ####[facility] [id number] [place] [address] [place] Monocytes (Bld) [#/Vol] 1.67 10*3/uL High <0.87 [facility] Comment on above: Order Comment: Speci men Type: BLOOD SPECIMENOrdering Facility: [facility] Address: [address] [place] [address] Performed By: #### 5 7021-8 ####[facility] [id number] [place] [address] [place] Monocytes/100 WBC (Bld) 10.3 % Normal [facility] Comment on above: Order Comment: Speci men Type: BLOOD SPECIMENOrdering Facility: [facility] Address: [address] [place] [address] Performed By: #### 5 7021-8 ####[facility] [id number] [place] [address] [place] Neutrophils (Bld) [#/Vol] 12.86 10*3/uL High 1.45-7.50 [facility] Comment on above: Order Comment: Speci men Type: BLOOD SPECIMENOrdering Facility: [facility] Address: [address] [place] [address] Performed By: #### 5 7021-8 ####[facility] [id number] [place] [address] [place] Neutrophils/100 WBC (Bld) 78.9 % Normal [facility] Comment on above: Order Comment: Speci men Type: BLOOD SPECIMENOrdering Facility: [facility] Address: [address] [place] [address] Performed By: #### 5 7021-8 ####[facility] [id number] [place] [address] [place] Nucleated RBC (Bld) [#/Vol] 10*3/uL Normal <0.01 [facility] Comment on above: Order Comment: Speci men Type: BLOOD SPECIMENOrdering Facility: [facility] Address: [address] [place] [address] Performed By: #### 5 7021-8 ####[facility] [id number] [place] [address] [place] Nucleated RBC/100 WBC (Bld) [Ratio] 0.0 /100 WBC Normal [facility] Comment on above: Order Comment: Speci men Type: BLOOD SPECIMENOrdering Facility: [facility] Address: [address] [place] [address] Performed By: #### 5 7021-8 ####[facility] [id number] [place] [address] [place] Platelet mean volume (Bld) [Entitic vol] 9.7 fL Normal 9.0-12.7 [facility] Comment on above: Order Comment: Speci men Type: BLOOD SPECIMENOrdering Facility: [facility] Address: [address] [place] [address] Performed By: #### 5 7021-8 ####[facility] [id number] [place] [address] [place] Platelets (Bld) [#/Vol] 207 10*3/uL Normal 150-400 [facility] Comment on above: Order Comment: Speci men Type: BLOOD SPECIMENOrdering Facility: [facility] Address: [address] [place] [address] Performed By: #### 5 7021-8 ####[facility] [id number] [place] [address] [place] RBC (Bld) [#/Vol] 2.48 10*6/uL Low 4.20-6.00 [facility] Comment on above: Order Comment: Speci men Type: BLOOD SPECIMENOrdering Facility: [facility] Address: [address] [place] [address] Performed By: #### 5 7021-8 ####[facility] [id number] [place] [address] [place] WBC (Bld) [#/Vol] 16.28 10*3/uL High 3.70-11.00 [facility] Comment on above: Order Comment: Speci men Type: BLOOD SPECIMENOrdering Facility: [facility] Address: [address] [place] [address] Performed By: #### 5 7021-8 ####[facility] [id number] [place] [address] [place] CBC panel Auto (Bld)on 08-30 Erythrocyte distribution width (RBC) [Ratio] 13.1 % Normal 11.5-15.0 [facility] Comment on above: Order Comment: Speci men Type: BLOOD SPECIMENOrdering Facility: [facility] Address: [address] [place] [address] Performed By: #### 5 8410-2 ####[facility] [id number] [place] [address] [place] Hematocrit (Bld) [Volume fraction] 26.8 % Low 39.0-51.0 [facility] Comment on above: Order Comment: Speci men Type: BLOOD SPECIMENOrdering Facility: [facility] Address: [address] [place] [address] Performed By: #### 5 8410-2 ####[facility] [id number] [place] [address] [place] Hemoglobin (Bld) [Mass/Vol] 8.9 g/dL Low 13.0-17.0 [facility] Comment on above: Order Comment: Speci men Type: BLOOD SPECIMENOrdering Facility: [facility] Address: [address] [place] [address] Performed By: #### 5 8410-2 ####[facility] [id number] [place] [address] [place] MCH (RBC) [Entitic mass] 29.6 pg Normal 26.0-34.0 [facility] Comment on above: Order Comment: Speci men Type: BLOOD SPECIMENOrdering Facility: [facility] Address: [address] [place] [address] Performed By: #### 5 8410-2 ####[facility] [id number] [place] [address] [place] MCHC (RBC) [Mass/Vol] 33.2 g/dL Normal 30.5-36.0 [facility] Comment on above: Order Comment: Speci men Type: BLOOD SPECIMENOrdering Facility: [facility] Address: [address] [place] [address] Performed By: #### 5 8410-2 ####[facility] [id number] [place] [address] [place] MCV (RBC) [Entitic vol] 89.0 fL Normal 80.0-100.0 [facility] Comment on above: Order Comment: Speci men Type: BLOOD SPECIMENOrdering Facility: [facility] Address: [address] [place] [address] Performed By: #### 5 8410-2 ####[facility] [id number] [place] [address] [place] Nucleated RBC (Bld) [#/Vol] 10*3/uL Normal <0.01 [facility] Comment on above: Order Comment: Speci men Type: BLOOD SPECIMENOrdering Facility: [facility] Address: [address] [place] [address] Performed By: #### 5 8410-2 ####[facility] [id number] [place] [address] [place] Platelet mean volume (Bld) [Entitic vol] 10.6 fL Normal 9.0-12.7 [facility] Comment on above: Order Comment: Speci men Type: BLOOD SPECIMENOrdering Facility: [facility] Address: [address] [place] [address] Performed By: #### 5 8410-2 ####[facility] [id number] [place] [address] [place] Platelets (Bld) [#/Vol] 223 10*3/uL Normal 150-400 [facility] Comment on above: Order Comment: Speci men Type: BLOOD SPECIMENOrdering Facility: [facility] Address: [address] [place] [address] Performed By: #### 5 8410-2 ####[facility] [id number] [place] [address] [place] RBC (Bld) [#/Vol] 3.01 10*6/uL Low 4.20-6.00 [facility] Comment on above: Order Comment: Speci men Type: BLOOD SPECIMENOrdering Facility: [facility] Address: [address] [place] [address] Performed By: #### 5 8410-2 ####[facility] [id number] [place] [address] [place] WBC (Bld) [#/Vol] 17.79 10*3/uL High 3.70-11.00 [facility] Comment on above: Order Comment: Speci men Type: BLOOD SPECIMENOrdering Facility: [facility] Address: [address] [place] [address] Performed By: #### 5 8410-2 ####[facility] [id number] [place] [address] [place] Erythrocyte distribution width (RBC) [Ratio] 12.9 % Normal 11.5-15.0 [facility] Comment on above: Order Comment: Speci men Type: BLOOD SPECIMENOrdering Facility: [facility] Address: [address] [place] [address] Performed By: #### 5 8410-2 ####[facility] [id number] [place] [address] [place] Hematocrit (Bld) [Volume fraction] 26.1 % Low 39.0-51.0 [facility] Comment on above: Order Comment: Speci men Type: BLOOD SPECIMENOrdering Facility: [facility] Address: [address] [place] [address] Performed By: #### 5 8410-2 ####[facility] [id number] [place] [address] [place] Hemoglobin (Bld) [Mass/Vol] 8.8 g/dL Low 13.0-17.0 [facility] Comment on above: Order Comment: Speci men Type: BLOOD SPECIMENOrdering Facility: [facility] Address: [address] [place] [address] Performed By: #### 5 8410-2 ####[facility] [id number] [place] [address] [place] MCH (RBC) [Entitic mass] 29.7 pg Normal 26.0-34.0 [facility] Comment on above: Order Comment: Speci men Type: BLOOD SPECIMENOrdering Facility: [facility] Address: [address] [place] [address] Performed By: #### 5 8410-2 ####[facility] [id number] [place] [address] [place] MCHC (RBC) [Mass/Vol] 33.7 g/dL Normal 30.5-36.0 [facility] Comment on above: Order Comment: Speci men Type: BLOOD SPECIMENOrdering Facility: [facility] Address: [address] [place] [address] Performed By: #### 5 8410-2 ####[facility] [id number] [place] [address] [place] MCV (RBC) [Entitic vol] 88.2 fL Normal 80.0-100.0 [facility] Comment on above: Order Comment: Speci men Type: BLOOD SPECIMENOrdering Facility: [facility] Address: [address] [place] [address] Performed By: #### 5 8410-2 ####[facility] [id number] [place] [address] [place] Nucleated RBC (Bld) [#/Vol] 10*3/uL Normal <0.01 [facility] Comment on above: Order Comment: Speci men Type: BLOOD SPECIMENOrdering Facility: [facility] Address: [address] [place] [address] Performed By: #### 5 8410-2 ####[facility] [id number] [place] [address] [place] Platelet mean volume (Bld) [Entitic vol] 9.2 fL Normal 9.0-12.7 [facility] Comment on above: Order Comment: Speci men Type: BLOOD SPECIMENOrdering Facility: [facility] Address: [address] [place] [address] Performed By: #### 5 8410-2 ####[facility] [id number] [place] [address] [place] Platelets (Bld) [#/Vol] 194 10*3/uL Normal 150-400 [facility] Comment on above: Order Comment: Speci men Type: BLOOD SPECIMENOrdering Facility: [facility] Address: [address] [place] [address] Performed By: #### 5 8410-2 ####[facility] [id number] [place] [address] [place] RBC (Bld) [#/Vol] 2.96 10*6/uL Low 4.20-6.00 [facility] Comment on above: Order Comment: Speci men Type: BLOOD SPECIMENOrdering Facility: [facility] Address: [address] [place] [address] Performed By: #### 5 8410-2 ####[facility] [id number] [place] [address] [place] WBC (Bld) [#/Vol] 17.35 10*3/uL High 3.70-11.00 [facility] Comment on above: Order Comment: Speci men Type: BLOOD SPECIMENOrdering Facility: [facility] Address: [address] [place] [address] Performed By: #### 5 8410-2 ####[facility] [id number] [place] [address] [place] Erythrocyte distribution width (RBC) [Ratio] 12.9 % Normal 11.5-15.0 [facility] Comment on above: Order Comment: Speci men Type: BLOOD SPECIMENOrdering Facility: [facility] Address: [address] [place] [address] Performed By: #### 5 8410-2 ####[facility] [id number] [place] [address] [place] Hematocrit (Bld) [Volume fraction] 22.0 % Low 39.0-51.0 [facility] Comment on above: Order Comment: Speci men Type: BLOOD SPECIMENOrdering Facility: [facility] Address: [address] [place] [address] Performed By: #### 5 8410-2 ####[facility] [id number] [place] [address] [place] Hemoglobin (Bld) [Mass/Vol] 7.1 g/dL Low 13.0-17.0 [facility] Comment on above: Order Comment: Speci men Type: BLOOD SPECIMENOrdering Facility: [facility] Address: [address] [place] [address] Performed By: #### 5 8410-2 ####[facility] LABIA [id number] [place] [address] [place] MCH (RBC) [Entitic mass] 29.0 pg Normal 26.0-34.0 [facility] Comment on above: Order Comment: Speci men Type: BLOOD SPECIMENOrdering Facility: [facility] Address: [address] [place] [address] Performed By: #### 5 8410-2 ####[facility] [id number] [place] [address] [place] MCHC (RBC) [Mass/Vol] 32.3 g/dL Normal 30.5-36.0 [facility] Comment on above: Order Comment: Speci men Type: BLOOD SPECIMENOrdering Facility: [facility] Address: [address] [place] [address] Performed By: #### 5 8410-2 ####[facility] [id number] [place] [address] [place] MCV (RBC) [Entitic vol] 89.8 fL Normal 80.0-100.0 [facility] Comment on above: Order Comment: Speci men Type: BLOOD SPECIMENOrdering Facility: [facility] Address: [address] [place] [address] Performed By: #### 5 8410-2 ####[facility] LABIA [id number] [place] [address] [place] Nucleated RBC (Bld) [#/Vol] 10*3/uL Normal <0.01 [facility] Comment on above: Order Comment: Speci men Type: BLOOD SPECIMENOrdering Facility: [facility] Address: [address] [place] [address] Performed By: #### 5 8410-2 ####[facility] [id number] [facility] [place] [address] [place] Platelet mean volume (Bld) [Entitic vol] 9.5 fL Normal 9.0-12.7 [facility] Comment on above: Order Comment: Speci men Type: BLOOD SPECIMENOrdering Facility: [facility] Address: [address] [place] [address] Performed By: #### 5 8410-2 ####[facility] [id number] [place] [address] [place] Platelets (Bld) [#/Vol] 211 10*3/uL Normal 150-400 [facility] Comment on above: Order Comment: Speci men Type: BLOOD SPECIMENOrdering Facility: [facility] Address: [address] [place] [address] Performed By: #### 5 8410-2 ####[facility] LABIA [id number] [place] [address] [place] RBC (Bld) [#/Vol] 2.45 10*6/uL Low 4.20-6.00 [facility] Comment on above: Order Comment: Speci men Type: BLOOD SPECIMENOrdering Facility: [facility] Address: [address] [place] [address] Performed By: #### 5 8410-2 ####[facility]CL[facility] [id number] [facility] [place] [id number] [place] WBC (Bld) [#/Vol] 17.80 10*3/uL High 3.70-11.00 [facility] Comment on above: Order Comment: Speci men Type: BLOOD SPECIMENOrdering Facility: [facility] Address: [address] [place] [address] Performed By: #### 5 8410-2 ####[facility] [id number] [place] [id number] [place] CONSULT PROGon 08-30-2024 CONSULT PROG Normal [facility] CRP SerPl-mCncon 08-30-2024 CRP [Mass/Vol] 21.6 mg/dL High <0.9 [facility] Comment on above: Order Comment: Speci men Type: BLOOD SPECIMENOrdering Facility: [facility] Address: [address] [place] [address] Performed By: #### 2 777-1, , , 1988-02 ####[facility] [id number] [place] [address] [place] Comprehensive metabolic 2000 panelon 08-30-2024 Albumin [Mass/Vol] 3.6 g/dL Low 3.9-4.9 [facility] Comment on above: Order Comment: Speci men Type: BLOOD SPECIMENOrdering Facility: [facility] Address: [address] [place] [address] Performed By: #### 2 777-1, , , 1988-02 ####[facility] [id number] [place] [address] [place] ALP [Catalytic activity/Vol] 63 U/L Normal 38-113 [facility] Comment on above: Order Comment: Speci men Type: BLOOD SPECIMENOrdering Facility: [facility] Address: [address] [place] [address] Result Comment: Resu lts may be falsely decreased due to interference from hemolysis. Suggest reorder as clinically indicated. Performed By: #### 2 777-1, , , 1988-02 ####[facility] [id number] [place] [address] [place] ALT [Catalytic activity/Vol] 80 U/L High 10-54 [facility] Comment on above: Order Comment: Speci men Type: BLOOD SPECIMENOrdering Facility: [facility] Address: [address] [place] [address] Result Comment: Resu lts may be falsely increased due to interference from hemolysis. Suggest reorder as clinically indicated. Performed By: #### 2 777-1, , , 1988-02 ####[facility] [id number] [facility] [address] [address] [place] Anion gap [Moles/Vol] 13 mmol/L Normal 8-15 [facility] Comment on above: Order Comment: Speci men Type: BLOOD SPECIMENOrdering Facility: [facility] Address: [address] [place] [address] Performed By: #### 2 777-1, , , 1988-02 ####[facility] LABCLIA [id number] [place] [id number] [place] AST [Catalytic activity/Vol] 77 U/L High 14-40 [facility] Comment on above: Order Comment: Speci men Type: BLOOD SPECIMENOrdering Facility: [facility] Address: [address] [place] [address] Result Comment: Resu lts may be falsely increased due to interference from hemolysis. Suggest reorder as clinically indicated. Performed By: #### 2 777-1, , , 1988-02 ####[facility] LABCLIA [id number] [address] [address] [place] Bilirubin [Mass/Vol] 0.4 mg/dL Normal 0.2-1.3 [facility] Comment on above: Order Comment: Speci men Type: BLOOD SPECIMENOrdering Facility: [facility] Address: [address] [place] [address] Performed By: #### 2 777-1, , , 1988-02 ####[facility]CL[facility] [id number] [facility] [address] [address] [place] Calcium [Mass/Vol] 8.5 mg/dL Normal 8.5-10.2 [facility] Comment on above: Order Comment: Speci men Type: BLOOD SPECIMENOrdering Facility: [facility] Address: [address] [place], [place] [address] Performed By: #### 2 777-1, , , 1988-02 ####[facility] [id number] [place] [id number] [place] Chloride [Moles/Vol] 99 mmol/L Normal 98-107 [facility] Comment on above: Order Comment: Speci men Type: BLOOD SPECIMENOrdering Facility: [facility] Address: [address] [place] [address] Performed By: #### 2 777-1, , , 1988-02 ####[facility]CL[facility] [id number] [place] [address] [place] CO2 [Moles/Vol] 25 mmol/L Normal 22-30 [facility] Comment on above: Order Comment: Speci men Type: BLOOD SPECIMENOrdering Facility: [facility] Address: [address] [place] [address] Performed By: #### 2 777-1, , , 1988-02 ####[facility] LABCLIA [id number] [place] [address] [place] Creatinine [Mass/Vol] 0.79 mg/dL Normal 0.73-1.22 [facility] Comment on above: Order Comment: Speci men Type: BLOOD SPECIMENOrdering Facility: [facility] Address: [address] [place] [address] Performed By: #### 2 777-1, , , 1988-02 ####[facility]CL[facility] [id number] [place] [id number] [place] Creatinine and Glomerular filtration rate.predicted panel (S/P/Bld) 106 mL/min/1.73m??? Normal >=60 [facility] Comment on above: Order Comment: Theo narvaez Type: BLOOD SPECIMENOrdering Facility: [facility] Address: [address] [place] [address] Result Comment: Marisa mated Glomerular Filtration Rate [...] By: #### 2 777-1, , , 1988-02 ####[facility]CL[facility] [id number] [place] [address] [place] Glucose [Mass/Vol] 203 mg/dL High 74-99 [facility] Comment on above: Order Comment: Theo narvaez Type: BLOOD SPECIMENOrdering Facility: [facility] Address: [address] [place] [address] Result Comment: The [place] [employer] (ADA) provides guidance for cutoff [...] Standards of Medical Care in Diabetes 2016, [place] [employer]. Diabetes Care. 2016.39(Suppl 1). Performed By: #### 2 777-1, , , 1988-02 ####[facility] [id number] [place] [id number] [place] Potassium [Moles/Vol] Normal [facility] Comment on above: Order Comment: Speci men Type: BLOOD SPECIMENOrdering Facility: [facility] Address: [address] [place] [address] Result Comment: Unab le to assay due to interference from hemolysis. Suggest reorder as clinically indicated. Performed By: #### 2 777-1, , , 1988-02 ####[facility]CL[facility] [id number] [place] [address] [place] Protein [Mass/Vol] 5.9 g/dL Low 6.3-8.0 [facility] Comment on above: Order Comment: Speci men Type: BLOOD SPECIMENOrdering Facility: [facility] Address: [address] [place] [address] Performed By: #### 2 777-1, , , 1988-02 ####[facility]CL[facility] [id number] [place] [address] [place] Sodium [Moles/Vol] 137 mmol/L Normal 136-144 [facility] Comment on above: Order Comment: Speci men Type: BLOOD SPECIMENOrdering Facility: [facility] Address: [address] [place] [address] Performed By: #### 2 777-1, , , 1988-02 ####[facility] LABCLIA [id number] [place] [id number] [place] Urea nitrogen [Mass/Vol] 9 mg/dL Normal 9-24 [facility] Comment on above: Order Comment: Speci men Type: BLOOD SPECIMENOrdering Facility: [facility] Address: [address] [place] [address] Performed By: #### 2 777-1, , , 1988-02 ####[facility]CLIA [id number] [facility] [address] [place] Albumin [Mass/Vol] 3.9 g/dL Normal 3.9-4.9 [facility] Comment on above: Order Comment: Speci men Type: BLOOD SPECIMENOrdering Facility: [facility] Address: [address] [place] [address] Performed By: #### 2 4323-8, 74640-0, 2776-10 ####[facility]CLIA [id number] [place] [address] [place] ALP [Catalytic activity/Vol] 56 U/L Normal 38-113 [facility] Comment on above: Order Comment: Speci men Type: BLOOD SPECIMENOrdering Facility: [facility] Address: [address] [place] [address] Performed By: #### 2 4323-8, , 2776-10 ####[facility]CL[facility] [id number] [place] [address] [place] ALT [Catalytic activity/Vol] 98 U/L High 10-54 [facility] Comment on above: Order Comment: Speci men Type: BLOOD SPECIMENOrdering Facility: [facility] Address: [address] [place] [address] Performed By: #### 2 4323-8, , 2776-10 ####[facility] LABCLIA [id number] [place] [id number] [place] Anion gap [Moles/Vol] 9 mmol/L Normal 8-15 [facility] Comment on above: Order Comment: Speci men Type: BLOOD SPECIMENOrdering Facility: [facility] Address: [address] [place], [place] [address] Performed By: #### 2 4323-8, , 2776-10 ####[facility] LABCLIA [id number] [address] [address] [place] AST [Catalytic activity/Vol] 82 U/L High 14-40 [facility] Comment on above: Order Comment: Speci men Type: BLOOD SPECIMENOrdering Facility: [facility] Address: [address] [place] [address] Performed By: #### 2 4323-8, , 2776-10 ####[facility] LABCLIA [id number] [address] [address] [place] Bilirubin [Mass/Vol] 0.3 mg/dL Normal 0.2-1.3 [facility] Comment on above: Order Comment: Speci men Type: BLOOD SPECIMENOrdering Facility: [facility] Address: [address] [place], [place] [address] Performed By: #### 2 4323-8, , 2776-10 ####[facility] LABCL[facility] [id number] [place] [address] [place] Calcium [Mass/Vol] 8.2 mg/dL Low 8.5-10.2 [facility] Comment on above: Order Comment: Speci men Type: BLOOD SPECIMENOrdering Facility: [facility] Address: [address] [place], [place] [address] Performed By: #### 2 4323-8, , 2776-10 ####[facility]CL[facility] [id number] [address] [address] [place] Chloride [Moles/Vol] 101 mmol/L Normal 98-107 [facility] Comment on above: Order Comment: Speci men Type: BLOOD SPECIMENOrdering Facility: [facility] Address: [address] [place] [address] Performed By: #### 2 4323-8, , 2776-10 ####[facility]CLIA [id number] [address] [address] [place] CO2 [Moles/Vol] 27 mmol/L Normal 22-30 [facility] Comment on above: Order Comment: Speci men Type: BLOOD SPECIMENOrdering Facility: [facility] Address: [address] [place], [place] [address] Performed By: #### 2 4323-8, , 2776-10 ####[facility] LABIA [id number] [place] [id number] [place] Creatinine [Mass/Vol] 0.98 mg/dL Normal 0.73-1.22 [facility] Comment on above: Order Comment: Speccurly men Type: BLOOD SPECIMENOrdering Facility: [facility] Address: [address] [place] [address] Performed By: #### 2 4323-8, , 2776-10 ####[facility] LABIA [id number] [place] [address] [place] Creatinine and Glomerular filtration rate.predicted panel (S/P/Bld) 92 mL/min/1.73m??? Normal >=60 [facility] Comment on above: Order Comment: Theo narvaez Type: BLOOD SPECIMENOrdering Facility: [facility] Address: [address] [place] [address] Result Comment: Marisa mated Glomerular Filtration Rate [...] Performed By: #### 2 4323-8, , 2776-10 ####[facility] LABIA [id number] [place] [id number] [place] Glucose [Mass/Vol] 172 mg/dL High 74-99 [facility] Comment on above: Order Comment: Theo men Type: BLOOD SPECIMENOrdering Facility: [facility] Address: [address] [place] [address] Result Comment: The [place] [employer] (ADA) provides guidance for cutoff [...] Standards of Medical Care in Diabetes 2016, [place] [employer]. Diabetes Care. 2016.39(Suppl 1). Performed By: #### 2 4323-8, , 2776-10 ####[facility] LABIA [id number] [place] [address] [place] Potassium [Moles/Vol] 4.0 mmol/L Normal 3.7-5.1 [facility] Comment on above: Order Comment: Speci men Type: BLOOD SPECIMENOrdering Facility: [facility] Address: [address] [place] [address] Performed By: #### 2 4323-8, , 2776-10 ####[facility] LABIA [id number] [place] [address] [place] Protein [Mass/Vol] 5.4 g/dL Low 6.3-8.0 [facility] Comment on above: Order Comment: Speci men Type: BLOOD SPECIMENOrdering Facility: [facility] Address: [address] [place] [address] Performed By: #### 2 4323-8, , 2776-10 ####[facility] LABIA [id number] [place] [address] [place] Sodium [Moles/Vol] 137 mmol/L Normal 136-144 [facility] Comment on above: Order Comment: Speci men Type: BLOOD SPECIMENOrdering Facility: [facility] Address: [address] [place] [address] Performed By: #### 2 4323-8, , 2776-10 ####[facility] LABIA [id number] [address] [address] [place] Urea nitrogen [Mass/Vol] 12 mg/dL Normal 9-24 [facility] Comment on above: Order Comment: Speci men Type: BLOOD SPECIMENOrdering Facility: [facility] Address: [address] [place] [address] Performed By: #### 2 4323-8, , 2776-10 ####[facility] LABIA [id number] [place] [id number] [place] Magnesium SerPl-mCncon 08-30 Magnesium [Mass/Vol] 2.1 mg/dL Normal 1.7-2.3 [facility] Comment on above: Order Comment: Speci men Type: BLOOD SPECIMENOrdering Facility: [facility] Address: [address] [place] [address] Performed By: #### 2 777-1, 34718-6, 53616-3, 1988-02 ####[facility] LABIA [id number] [place] [id number] [place] Magnesium [Mass/Vol] 1.9 mg/dL Normal 1.7-2.3 [facility] Comment on above: Order Comment: Speci men Type: BLOOD SPECIMENOrdering Facility: [facility] Address: [address] [place], [place] [address] Performed By: #### 2 432-8, , 2776-10 ####[facility] LABIA [id number] [place] [id number] [place] PT panel Coag (PPP)on 2023 INR Coag (PPP) [Relative time] 1.1 {INR} Normal 0.9-1.3 [facility] Comment on above: Order Comment: Speci men Type: BLOOD SPECIMENOrdering Facility: [facility] Address: [address] [place] [address] Result Comment: Carmita min K Antagonist (VKA) Therapeutic Range: INR 2 to 3 (Target INR of 2.5)Note: For patients treated with VKA drugs, such as warfarin, the [place] [employer] 2012 Guideline recommends [...] al. Chest 2012, 141:7S-47SMargot RA, et al. [facility] 2017, 70: 252-289 Performed By: #### 3 4528-0, 21711-6 ####[facility] [id number] [place] [address] [place] PT Coag (PPP) [Time] 11.4 s Normal 9.7-13.0 [facility] Comment on above: Order Comment: Speci men Type: BLOOD SPECIMENOrdering Facility: [facility] Address: [address] [place] [address] Performed By: #### 3 4528-0, 34334-6 ####[facility] [id number] [place] [address] [place] INR Coag (PPP) [Relative time] 1.1 {INR} Normal 0.9-1.3 [facility] Comment on above: Order Comment: Speci men Type: BLOOD SPECIMENOrdering Facility: [facility] Address: [address] [place] [address] Result Comment: Carmita min K Antagonist (VKA) Therapeutic Range: INR 2 to 3 (Target INR of 2.5)Note: For patients treated with VKA drugs, such as warfarin, the [place] [employer] 2012 Guideline recommends [...] of 3).Daren GH, et al. Chest 2012, 141:7S-47SNishimshira RA, et al. [facility] 2017, 70: 252-289 Performed By: #### 1 4979-9, 31487-6 ####[facility] LABCLIA [id number] [place] [address] [place] PT Coag (PPP) [Time] 11.7 s Normal 9.7-13.0 [facility] Comment on above: Order Comment: Speci men Type: BLOOD SPECIMENOrdering Facility: [facility] Address: [address] [place] [address] Performed By: #### 1 4979-9, 60609-8 ####[facility] LABIA [id number] [place] [id number] [place] Phosphate SerPl-mCncon 08-30 Phosphate [Mass/Vol] 1.9 mg/dL Low 2.7-4.8 [facility] Comment on above: Order Comment: Speci men Type: BLOOD SPECIMENOrdering Facility: [facility] Address: [address] [place] [address] Performed By: #### 2 777-1, 63078-6, 67710-3, 1988-02 ####[facility] LABCLIA [id number] [place] [id number] [place] Phosphate [Mass/Vol] 1.9 mg/dL Low 2.7-4.8 [facility] Comment on above: Order Comment: Speci men Type: BLOOD SPECIMENOrdering Facility: [facility] Address: [address] [place] [address] Result Comment: Resu lt rechecked. Performed By: #### 2 4323-8, 07538-8, 2777-1 ####[facility] LABCLIA [id number] [place] [address] [place] aPTT PPPon 08-30-2024 aPTT Coag (PPP) [Time] 27.9 s Normal 23.0-32.4 [facility] Comment on above: Order Comment: Speci men Type: BLOOD SPECIMENOrdering Facility: [facility] Address: [address] [place] [address] Performed By: #### 3 4528-0, 85564-0 ####[facility] LABCLIA [id number] [address] STATES OF [facility] aPTT Coag (PPP) [Time] 31.4 s Normal 23.0-32.4 [facility] Comment on above: Order Comment: Speci men Type: BLOOD SPECIMENOrdering Facility: [facility] Address: [address] [place] [address] Performed By: #### 1 4979-9, 50651-1 ####[facility] LABCLIA [id number] [place] [address] [place] Basic metabolic 2000 panelon 08-29-2024 Anion gap [Moles/Vol] 13 mmol/L Normal 8-15 [facility] Comment on above: Order Comment: Speci men Type: BLOOD SPECIMENOrdering Facility: [facility] Address: [address] [place] [address] Performed By: #### 2 4325-3, 72507-9 ####[facility] LABCLIA [id number] [place] [address] [place] Calcium [Mass/Vol] 8.0 mg/dL Low 8.5-10.2 [facility] Comment on above: Order Comment: Speci men Type: BLOOD SPECIMENOrdering Facility: [facility] Address: [address] [place] [id number] Performed By: #### 2 4325-3, 24385-0 ####[facility] LABCLIA [id number] [facility] [place] [address] [place] Chloride [Moles/Vol] 103 mmol/L Normal 98-107 [facility] Comment on above: Order Comment: Speci men Type: BLOOD SPECIMENOrdering Facility: [facility] Address: [address] [place] [address] Performed By: #### 2 4325-3, 63857-8 ####[facility] LABCLIA [id number] [place] [address] [place] CO2 [Moles/Vol] 22 mmol/L Normal 22-30 [facility] Comment on above: Order Comment: Speci men Type: BLOOD SPECIMENOrdering Facility: [facility] Address: [address] [place] [address] Performed By: #### 2 4325-3, 77240-6 ####[facility] LABCLIA [id number] [place] [address] [place] Creatinine [Mass/Vol] 0.93 mg/dL Normal 0.73-1.22 [facility] Comment on above: Order Comment: Speci men Type: BLOOD SPECIMENOrdering Facility: [facility] Address: [address] [place] [address] Performed By: #### 2 4325-3, 75512-8 ####[facility] LABCLIA [id number] [place] [address] [place] Creatinine and Glomerular filtration rate.predicted panel (S/P/Bld) 98 mL/min/1.73m??? Normal >=60 [facility] Comment on above: Order Comment: Speci men Type: BLOOD SPECIMENOrdering Facility: [facility] Address: [address] [place] [address] Result Comment: Marisa mated Glomerular Filtration Rate [...] actual GFR. Performed By: #### 2 4325-3, 23303-5 ####[facility] LABCLIA [id number] [place] [address] [place] [place] Glucose [Mass/Vol] 206 mg/dL High 74-99 [facility] Comment on above: Order Comment: Theo narvaez Type: BLOOD SPECIMENOrdering Facility: [facility] Address: [address] [place] [address] Result Comment: The [place] [employer] (ADA) provides guidance for cutoff [...] Standards of Medical Care in Diabetes 2016, [place] [employer]. Diabetes Care. 2016.39(Suppl 1). Performed By: #### 2 4325-3, 28368-1 ####[facility] LABIA [id number] [place] [id number] [place] Potassium [Moles/Vol] Normal [facility] Comment on above: Order Comment: Theo narvaez Type: BLOOD SPECIMENOrdering Facility: [facility] Address: [address] [place] [address] Result Comment: Unab le to assay due to interference from hemolysis. Suggest reorder as clinically indicated. Performed By: #### 2 4325-3, 85972-8 ####[facility] LABCLIA [id number] [place] [address] [place] Sodium [Moles/Vol] 138 mmol/L Normal 136-144 [facility] Comment on above: Order Comment: Speci men Type: BLOOD SPECIMENOrdering Facility: [facility] Address: [address] [place] [address] Performed By: #### 2 4325-3, 91545-2 ####[facility] LABCLIA [id number] [place] [address] [place] Urea nitrogen [Mass/Vol] 14 mg/dL Normal 9-24 [facility] Comment on above: Order Comment: Speci men Type: BLOOD SPECIMENOrdering Facility: [facility] Address: [address] [place] [address] Performed By: #### 2 4325-3, 34545-9 ####[facility] LABCLIA [id number] [place] [address] [place] CASE MGT INIT ASSESon 2023 CASE MGT INIT ASSES Normal [facility] CBC W Auto Differential pane l (Bld)on 08-29-2024 Basophils (Bld) [#/Vol] 10*3/uL Normal <0.11 [facility] Comment on above: Order Comment: Speci men Type: BLOOD SPECIMENOrdering Facility: [facility] Address: [address] [place] [address] Performed By: #### 5 7021-8 ####[facility] LABIA [id number] [place] [address] [place] Basophils/100 WBC (Bld) 0.1 % Normal [facility] Comment on above: Order Comment: Speci men Type: BLOOD SPECIMENOrdering Facility: [facility] Address: [address] [place] [address] Performed By: #### 5 7021-8 ####[facility] LABCLIA [id number] [place] [address] [place] Differential cell count method Nom (Bld) Auto Normal [facility] Comment on above: Order Comment: Speci men Type: BLOOD SPECIMENOrdering Facility: [facility] Address: [address] [place] [address] Performed By: #### 5 7021-8 ####[facility] LABCLIA [id number] [place] [address] [place] Eosinophils (Bld) [#/Vol] 10*3/uL Normal <0.46 [facility] Comment on above: Order Comment: Speci men Type: BLOOD SPECIMENOrdering Facility: [facility] Address: [address] [place] [address] Performed By: #### 5 7021-8 ####[facility] LABCLIA [id number] [place] [address] [place] Eosinophils/100 WBC (Bld) 0.0 % Normal [facility] Comment on above: Order Comment: Speci men Type: BLOOD SPECIMENOrdering Facility: [facility] Address: [address] [place] [address] Performed By: #### 5 7021-8 ####[facility] LABCLIA [id number] [place] [address] [place] Erythrocyte distribution width (RBC) [Ratio] 12.8 % Normal 11.5-15.0 [facility] Comment on above: Order Comment: Speci men Type: BLOOD SPECIMENOrdering Facility: [facility] Address: [address] [place] [address] Performed By: #### 5 7021-8 ####[facility] LABCLIA [id number] [place] [address] [place] Hematocrit (Bld) [Volume fraction] 26.7 % Low 39.0-51.0 [facility] Comment on above: Order Comment: Speci men Type: BLOOD SPECIMENOrdering Facility: [facility] Address: [address] [place] [address] Performed By: #### 5 7021-8 ####[facility] LABCLIA [id number] [place] [address] [place] Hemoglobin (Bld) [Mass/Vol] 9.0 g/dL Low 13.0-17.0 [facility] Comment on above: Order Comment: Speci men Type: BLOOD SPECIMENOrdering Facility: [facility] Address: [address] [place] [address] Performed By: #### 5 7021-8 ####[facility] LABCLIA [id number] [place] [address] [place] Immature granulocytes (Bld) [#/Vol] 0.09 10*3/uL Normal <0.10 [facility] Comment on above: Order Comment: Speci men Type: BLOOD SPECIMENOrdering Facility: [facility] Address: [address] [place] [address] Performed By: #### 5 7021-8 ####[facility] LABCLIA [id number] [place] [address] [place] Immature granulocytes/100 WBC (Bld) 0.6 % Normal [facility] Comment on above: Order Comment: Speci men Type: BLOOD SPECIMENOrdering Facility: [facility] Address: [address] [place] [address] Performed By: #### 5 7021-8 ####[facility] LABCLIA [id number] [place] [address] [place] Lymphocytes (Bld) [#/Vol] 0.83 10*3/uL Low 1.00-4.00 [facility] Comment on above: Order Comment: Speci men Type: BLOOD SPECIMENOrdering Facility: [facility] Address: [address] [place] [address] Performed By: #### 5 7021-8 ####[facility] LABCLIA [id number] [place] [address] [place] Lymphocytes/100 WBC (Bld) 5.7 % Normal [facility] Comment on above: Order Comment: Speci men Type: BLOOD SPECIMENOrdering Facility: [facility] Address: [address] [place] [address] Performed By: #### 5 7021-8 ####[facility] LABIA [id number] [place] [address] [place] MCH (RBC) [Entitic mass] 29.7 pg Normal 26.0-34.0 [facility] Comment on above: Order Comment: Speci men Type: BLOOD SPECIMENOrdering Facility: [facility] Address: [address] [place] [address] Performed By: #### 5 7021-8 ####[facility] LABIA [id number] [place] [address] [place] MCHC (RBC) [Mass/Vol] 33.7 g/dL Normal 30.5-36.0 [facility] Comment on above: Order Comment: Speci men Type: BLOOD SPECIMENOrdering Facility: [facility] Address: [address] [place] [address] Performed By: #### 5 7021-8 ####[facility] LABIA [id number] [place] [address] [place] MCV (RBC) [Entitic vol] 88.1 fL Normal 80.0-100.0 [facility] Comment on above: Order Comment: Speci men Type: BLOOD SPECIMENOrdering Facility: [facility] Address: [address] [place] [address] Performed By: #### 5 7021-8 ####[facility] LABIA [id number] [place] [address] [place] Monocytes (Bld) [#/Vol] 1.13 10*3/uL High <0.87 [facility] Comment on above: Order Comment: Speci men Type: BLOOD SPECIMENOrdering Facility: [facility] Address: [address] [place] [address] Performed By: #### 5 7021-8 ####[facility] LABCLIA [id number] [place] [address] [place] Monocytes/100 WBC (Bld) 7.7 % Normal [facility] Comment on above: Order Comment: Speci men Type: BLOOD SPECIMENOrdering Facility: [facility] Address: [address] [place] [address] Performed By: #### 5 7021-8 ####[facility] LABCLIA [id number] [place] [address] [place] Neutrophils (Bld) [#/Vol] 12.57 10*3/uL High 1.45-7.50 [facility] Comment on above: Order Comment: Speci men Type: BLOOD SPECIMENOrdering Facility: [facility] Address: [address] [place] [address] Performed By: #### 5 7021-8 ####[facility] LABCLIA [id number] [place] [address] [place] Neutrophils/100 WBC (Bld) 85.9 % Normal [facility] Comment on above: Order Comment: Speci men Type: BLOOD SPECIMENOrdering Facility: [facility] Address: [address] [place] [address] Performed By: #### 5 7021-8 ####[facility] LABCLIA [id number] [place] [address] [place] Nucleated RBC (Bld) [#/Vol] 10*3/uL Normal <0.01 [facility] Comment on above: Order Comment: Speci men Type: BLOOD SPECIMENOrdering Facility: [facility] Address: [address] [place] [address] Performed By: #### 5 7021-8 ####[facility] LABCLIA [id number] [place] [address] [place] Nucleated RBC/100 WBC (Bld) [Ratio] 0.0 /100 WBC Normal [facility] Comment on above: Order Comment: Speci men Type: BLOOD SPECIMENOrdering Facility: [facility] Address: [address] [place] [address] Performed By: #### 5 7021-8 ####[facility] LABCLIA [id number] [place] [address] [place] Platelet mean volume (Bld) [Entitic vol] 9.9 fL Normal 9.0-12.7 [facility] Comment on above: Order Comment: Speci men Type: BLOOD SPECIMENOrdering Facility: [facility] Address: [address] [place] [address] Performed By: #### 5 7021-8 ####[facility] LABIA [id number] [place] [address] [place] Platelets (Bld) [#/Vol] 209 10*3/uL Normal 150-400 [facility] Comment on above: Order Comment: Speci men Type: BLOOD SPECIMENOrdering Facility: [facility] Address: [address] [place] [address] Performed By: #### 5 7021-8 ####[facility] LABIA [id number] [place] [address] [place] RBC (Bld) [#/Vol] 3.03 10*6/uL Low 4.20-6.00 [facility] Comment on above: Order Comment: Speci men Type: BLOOD SPECIMENOrdering Facility: [facility] Address: [address] [place] [address] Performed By: #### 5 7021-8 ####[facility] LABIA [id number] [place] [address] [place] WBC (Bld) [#/Vol] 14.63 10*3/uL High 3.70-11.00 [facility] Comment on above: Order Comment: Speci men Type: BLOOD SPECIMENOrdering Facility: [facility] Address: [address] [place] [address] Performed By: #### 5 7021-8 ####[facility] LABCLIA [id number] [place] [address] [place] CONSULTon 08-29-2024 CONSULT Normal [facility] Hepatic function 2000 panelo n 08-29-2024 Albumin [Mass/Vol] 3.7 g/dL Low 3.9-4.9 [facility] Comment on above: Order Comment: Speci men Type: BLOOD SPECIMENOrdering Facility: [facility] Address: [address] [place] [address] Performed By: #### 2 4325-3, 01165-9 ####[facility] LABCLIA [id number] [place] [address] [place] ALP [Catalytic activity/Vol] 55 U/L Normal 38-113 [facility] Comment on above: Order Comment: Speci men Type: BLOOD SPECIMENOrdering Facility: [facility] Address: [address] [place] [address] Performed By: #### 2 4325-3, 75220-1 ####[facility] LABCLIA [id number] [place] [address] [place] ALT [Catalytic activity/Vol] 113 U/L High 10-54 [facility] Comment on above: Order Comment: Speci men Type: BLOOD SPECIMENOrdering Facility: [facility] Address: [address] [place] [address] Result Comment: Resu lts may be falsely increased due to interference from hemolysis. Suggest reorder as clinically indicated. Performed By: #### 2 4325-3, 39363-9 ####[facility] LABCLIA [id number] [place] [address] [place] AST [Catalytic activity/Vol] 121 U/L High 14-40 [facility] Comment on above: Order Comment: Speci men Type: BLOOD SPECIMENOrdering Facility: [facility] Address: [address] [place] [address] Result Comment: Resu lts may be falsely increased due to interference from hemolysis. Suggest reorder as clinically indicated. Performed By: #### 2 4325-3, 43997-9 ####[facility] LABIA [id number] [place] [address] [place] Bilirubin [Mass/Vol] 0.6 mg/dL Normal 0.2-1.3 [facility] Comment on above: Order Comment: Speci men Type: BLOOD SPECIMENOrdering Facility: [facility] Address: [address] [place] [address] Performed By: #### 2 4324-3, 05083-6 ####[facility] [id number] [place] [address] [place] Bilirubin.conjugated [Mass/Vol] mg/dL Normal <0.2 [facility] Comment on above: Order Comment: Speci men Type: BLOOD SPECIMENOrdering Facility: [facility] Address: [address] [place] [address] Result Comment: Resu lts may be falsely decreased due to interference from hemolysis. Suggest reorder as clinically indicated. Performed By: #### 2 5-3, 12228-4 ####[facility] LABIA [id number] [place] [address] [place] Protein [Mass/Vol] 5.3 g/dL Low 6.3-8.0 [facility] Comment on above: Order Comment: Speci men Type: BLOOD SPECIMENOrdering Facility: [facility] Address: [address] [place] [address] Performed By: #### 2 4325-3, 03377-5 ####[facility] LABCLIA [id number] [place] [id number] [place] Lactate (Bld) [Moles/Vol]on 08-29-2024 Lactate [Moles/Vol] 1.8 mmol/L Normal 0.5-2.2 [facility] Comment on above: Order Comment: Speci men Type: BLOOD SPECIMENOrdering Facility: [facility] Address: [address] [place] [address] Performed By: #### 3 2693-4 ####[facility] [id number] [place] [address] [place] NUTRITIONon 08-29-2024 NUTRITION Normal [facility] THERAPY NTon 08-29-2024 THERAPY NT Normal [facility] THERAPY NT Normal [facility] ANES POSTPROC EVALon 024 ANES POSTPROC EVAL Normal [facility] ANES PRE-OPon 08-28-2024 ANES PRE-OP Normal [facility] ARTERIAL BLOOD GASESon 08-28 Base excess Calc (Bld) [Moles/Vol] 0 mmol/L Normal 0-2 [facility] Comment on above: Order Comment: Speci men Type: ARTERIAL BLOOD SPECIMENOrdering Facility: [facility] Address: [address] [place] [address] Performed By: #### A LLBG ####[facility] LABIA [id number] [place] [address] [place] Calcium.ionized (Bld) [Mass/Vol] 1.14 mmol/L Normal 1.08-1.30 [facility] Comment on above: Order Comment: Speci men Type: ARTERIAL BLOOD SPECIMENOrdering Facility: [facility] Address: [address] [place] [address] Performed By: #### A LLBG ####[facility] LABIA [id number] [place] [address] [place] Calcium.ionized adjusted to pH 7.4 (BldA) [Moles/Vol] 1.12 mmol/L Normal 1.08-1.30 [facility] Comment on above: Order Comment: Speci men Type: ARTERIAL BLOOD SPECIMENOrdering Facility: [facility] Address: [address] [place] [address] Performed By: #### A LLBG ####[facility] LABCLIA [id number] [place] [address] [place] Carboxyhemoglobin (BldA) [Mass fraction] 1.3 % Normal 0.0-2.0 [facility] Comment on above: Order Comment: Speci men Type: ARTERIAL BLOOD SPECIMENOrdering Facility: [facility] Address: [address] [place] [address] Result Comment: Carb oxyhemoglobin Reference Range for Smokers: 2.0-8.0% Performed By: #### A LLBG ####[facility] LABCLIA [id number] [place] [address] [place] CO2 (Bld) [Partial pressure] 44 mm Hg Normal 36-46 [facility] Comment on above: Order Comment: Speci men Type: ARTERIAL BLOOD SPECIMENOrdering Facility: [facility] Address: [address] [place] [address] Performed By: #### A LLBG ####[facility] LABCLIA [id number] [place] [address] [place] CO2 adjusted to patient's actual temperature (Bld) [Partial pressure] 44 mmHg Normal 36-46 [facility] Comment on above: Order Comment: Speci men Type: ARTERIAL BLOOD SPECIMENOrdering Facility: [facility] Address: [address] [place] [address] Performed By: #### A LLBG ####[facility] LABCLIA [id number] [place] [address] [place] Glucose [Mass/Vol] 171 mg/dL High 60-105 [facility] Comment on above: Order Comment: Speci men Type: ARTERIAL BLOOD SPECIMENOrdering Facility: [facility] Address: [address] [place] [address] Performed By: #### A LLBG ####[facility] LABCLIA [id number] [place] [address] [place] HCO3 (Bld) [Moles/Vol] 25 mmol/L Normal 22-26 [facility] Comment on above: Order Comment: Speci men Type: ARTERIAL BLOOD SPECIMENOrdering Facility: [facility] Address: [address] [place] [address] Performed By: #### A LLBG ####[facility] LABCLIA [id number] [place] [address] [place] Hematocrit (Bld) [Volume fraction] 26.6 % Low 39.0-51.0 [facility] Comment on above: Order Comment: Speci men Type: ARTERIAL BLOOD SPECIMENOrdering Facility: [facility] Address: [address] [place] [address] Performed By: #### A LLBG ####[facility] LABCLIA [id number] [place] [address] [place] Hemoglobin (Bld) [Mass/Vol] 8.6 g/dL Low 13.0-17.0 [facility] Comment on above: Order Comment: Speci men Type: ARTERIAL BLOOD SPECIMENOrdering Facility: [facility] Address: [address] [place] [address] Performed By: #### A LLBG ####[facility] LABCLIA [id number] [place] [address] [place] Lactate [Moles/Vol] 3.3 mmol/L High 0.5-2.2 [facility] Comment on above: Order Comment: Speci men Type: ARTERIAL BLOOD SPECIMENOrdering Facility: [facility] Address: [address] [place] [address] Performed By: #### A LLBG ####[facility] LABCLIA [id number] [place] [id number] [place] Methemoglobin (Bld) [Mass fraction] 0.7 % Normal 0.0-1.5 [facility] Comment on above: Order Comment: Speci men Type: ARTERIAL BLOOD SPECIMENOrdering Facility: [facility] Address: [address] [place] [address] Performed By: #### A LLBG ####[facility] LABCLIA [id number] [place] [id number] [place] Oxygen (Bld) [Partial pressure] 201 mm Hg High 85-95 [facility] Comment on above: Order Comment: Speci men Type: ARTERIAL BLOOD SPECIMENOrdering Facility: [facility] Address: [address] [place] [address] Performed By: #### A LLBG ####[facility] LABIA [id number] [place] [address] [place] Oxygen adjusted to patient's actual temperature (Bld) [Partial pressure] 201 mmHg High 85-95 [facility] Comment on above: Order Comment: Speci men Type: ARTERIAL BLOOD SPECIMENOrdering Facility: [facility] Address: [address] [place] [address] Performed By: #### A LLBG ####[facility] LABCLIA [id number] [place] [address] [place] Oxyhemoglobin (BldA) [Mass fraction] 98 % Normal 95-98 [facility] Comment on above: Order Comment: Speci men Type: ARTERIAL BLOOD SPECIMENOrdering Facility: [facility] Address: [address] [place], [place] [address] Performed By: #### A LLBG ####[facility] LABCLIA [id number] [place] [id number] [place] pH (Bld) 7.36 [pH] Normal 7.35-7.45 [facility] Comment on above: Order Comment: Speci men Type: ARTERIAL BLOOD SPECIMENOrdering Facility: [facility] Address: [address] [place] [address] Performed By: #### A LLBG ####[facility] LABCLIA [id number] [place] [address] [place] pH adjusted to patient's actual temperature (Bld) 7.36 Normal 7.35-7.45 [facility] Comment on above: Order Comment: Speci men Type: ARTERIAL BLOOD SPECIMENOrdering Facility: [facility] Address: [address] [place] [address] Performed By: #### A LLBG ####[facility]CLIA [id number] [place] [address] [place] Potassium [Moles/Vol] 3.6 mmol/L Normal 3.5-5.0 [facility] Comment on above: Order Comment: Speci men Type: ARTERIAL BLOOD SPECIMENOrdering Facility: [facility] Address: [address] [place] [address] Performed By: #### A LLBG ####[facility]CLIA [id number] [place] [address] [place] Sodium [Moles/Vol] 138 mmol/L Normal 136-144 [facility] Comment on above: Order Comment: Speci men Type: ARTERIAL BLOOD SPECIMENOrdering Facility: [facility] Address: [address] [place] [address] Performed By: #### A LLBG ####[facility] LABCLIA [id number] [place] [address] [place] ARTERIAL BLOOD GASES WITH IO NIZED MAGNESIUMon 08-28-2024 Base excess Calc (Bld) [Moles/Vol] 1 mmol/L Normal 0-2 [facility] Comment on above: Order Comment: Speci men Type: ARTERIAL BLOOD SPECIMENOrdering Facility: [facility] Address: [address] [place] [address] Performed By: #### A LLMG ####[facility]IA [id number] [place] [address] [place] Calcium.ionized (Bld) [Mass/Vol] 1.16 mmol/L Normal 1.08-1.30 [facility] Comment on above: Order Comment: Speci men Type: ARTERIAL BLOOD SPECIMENOrdering Facility: [facility] Address: [address] [place] [address] Performed By: #### A LLMG ####[facility]IA [id number] [place] [address] [place] Calcium.ionized adjusted to pH 7.4 (BldA) [Moles/Vol] 1.15 mmol/L Normal 1.08-1.30 [facility] Comment on above: Order Comment: Speci men Type: ARTERIAL BLOOD SPECIMENOrdering Facility: [facility] Address: [address] [place] [address] Performed By: #### A LLMG ####[facility] LABIA [id number] [place] [address] [place] Carboxyhemoglobin (BldA) [Mass fraction] 1.5 % Normal 0.0-2.0 [facility] Comment on above: Order Comment: Speci men Type: ARTERIAL BLOOD SPECIMENOrdering Facility: [facility] Address: [address] [place] [address] Result Comment: Carb oxyhemoglobin Reference Range for Smokers: 2.0-8.0% Performed By: #### A LLMG ####[facility]IA [id number] [place] [address] [place] CO2 (Bld) [Partial pressure] 42 mm Hg Normal 36-46 [facility] Comment on above: Order Comment: Speci men Type: ARTERIAL BLOOD SPECIMENOrdering Facility: [facility] Address: [address] [place] [address] Performed By: #### A LLMG ####[facility] LABCLIA [id number] [place] [address] [place] CO2 adjusted to patient's actual temperature (Bld) [Partial pressure] 42 mmHg Normal 36-46 [facility] Comment on above: Order Comment: Speci men Type: ARTERIAL BLOOD SPECIMENOrdering Facility: [facility] Address: [address] [place] [address] Performed By: #### A LLMG ####[facility] LABCLIA [id number] [place] [address] [place] Glucose [Mass/Vol] 220 mg/dL High 60-105 [facility] Comment on above: Order Comment: Speci men Type: ARTERIAL BLOOD SPECIMENOrdering Facility: [facility] Address: [address] [place] [address] Performed By: #### A LLMG ####[facility] LABCLIA [id number] [place] [address] [place] HCO3 (Bld) [Moles/Vol] 25 mmol/L Normal 22-26 [facility] Comment on above: Order Comment: Speci men Type: ARTERIAL BLOOD SPECIMENOrdering Facility: [facility] Address: [address] [place] [address] Performed By: #### A LLMG ####[facility] LABCLIA [id number] [place] [address] [place] Hematocrit (Bld) [Volume fraction] 32.3 % Low 39.0-51.0 [facility] Comment on above: Order Comment: Speci men Type: ARTERIAL BLOOD SPECIMENOrdering Facility: [facility] Address: [address] [place] [address] Performed By: #### A LLMG ####[facility] LABCLIA [id number] [place] [address] [place] Hemoglobin (Bld) [Mass/Vol] 10.4 g/dL Low 13.0-17.0 [facility] Comment on above: Order Comment: Speci men Type: ARTERIAL BLOOD SPECIMENOrdering Facility: [facility] Address: [address] [place] [address] Performed By: #### A LLMG ####[facility] LABCLIA [id number] [place] [address] [place] Lactate [Moles/Vol] 2.0 mmol/L Normal 0.5-2.2 [facility] Comment on above: Order Comment: Speci men Type: ARTERIAL BLOOD SPECIMENOrdering Facility: [facility] Address: [address] [place] [address] Performed By: #### A LLMG ####[facility]IA [id number] [place] [address] [place] Magnesium [Moles/Vol] 0.40 mmol/L Low 0.45-0.60 [facility] Comment on above: Order Comment: Speci men Type: ARTERIAL BLOOD SPECIMENOrdering Facility: [facility] Address: [address] [place] [address] Performed By: #### A LLMG ####[facility]IA [id number] [place] [address] [place] Methemoglobin (Bld) [Mass fraction] 0.5 % Normal 0.0-1.5 [facility] Comment on above: Order Comment: Speci men Type: ARTERIAL BLOOD SPECIMENOrdering Facility: [facility] Address: [address] [place] [address] Performed By: #### A LLMG ####[facility]IA [id number] [place] [address] [place] Oxygen (Bld) [Partial pressure] 179 mm Hg High 85-95 [facility] Comment on above: Order Comment: Speci men Type: ARTERIAL BLOOD SPECIMENOrdering Facility: [facility] Address: [address] [place] [address] Performed By: #### A LLMG ####[facility] LABCLIA [id number] [place] [address] [place] Oxygen adjusted to patient's actual temperature (Bld) [Partial pressure] 179 mmHg High 85-95 [facility] Comment on above: Order Comment: Speci men Type: ARTERIAL BLOOD SPECIMENOrdering Facility: [facility] Address: [address] [place] [address] Performed By: #### A LLMG ####[facility] LABCLIA [id number] [place] [address] [place] Oxyhemoglobin (BldA) [Mass fraction] 98 % Normal 95-98 [facility] Comment on above: Order Comment: Speci men Type: ARTERIAL BLOOD SPECIMENOrdering Facility: [facility] Address: [address] [place] [address] Performed By: #### A LLMG ####[facility]IA [id number] [place] [address] [place] pH (Bld) 7.40 [pH] Normal 7.35-7.45 [facility] Comment on above: Order Comment: Speci men Type: ARTERIAL BLOOD SPECIMENOrdering Facility: [facility] Address: [address] [place] [address] Performed By: #### A LLMG ####[facility]IA [id number] [place] [address] [place] pH adjusted to patient's actual temperature (Bld) 7.40 Normal 7.35-7.45 [facility] Comment on above: Order Comment: Speci men Type: ARTERIAL BLOOD SPECIMENOrdering Facility: [facility] Address: [address] [place] [address] Performed By: #### A LLMG ####[facility] [id number] [place] [address] [place] Potassium [Moles/Vol] 4.1 mmol/L Normal 3.5-5.0 [facility] Comment on above: Order Comment: Speci men Type: ARTERIAL BLOOD SPECIMENOrdering Facility: [facility] Address: [address] [place] [address] Performed By: #### A LLMG ####[facility]IA [id number] [place] [address] [place] Sodium [Moles/Vol] 137 mmol/L Normal 136-144 [facility] Comment on above: Order Comment: Speci men Type: ARTERIAL BLOOD SPECIMENOrdering Facility: [facility] Address: [address] [place] [address] Performed By: #### A LLMG ####[facility] [id number] [place] [address] [place] Base excess Calc (Bld) [Moles/Vol] 2 mmol/L Normal 0-2 [facility] Comment on above: Order Comment: Speci men Type: ARTERIAL BLOOD SPECIMENOrdering Facility: [facility] Address: [address] [place] [address] Performed By: #### A LLMG ####[facility]IA [id number] [place] [address] [place] Calcium.ionized (Bld) [Mass/Vol] 1.21 mmol/L Normal 1.08-1.30 [facility] Comment on above: Order Comment: Speci men Type: ARTERIAL BLOOD SPECIMENOrdering Facility: [facility] Address: [address] [place] [address] Performed By: #### A LLMG ####[facility]IA [id number] [place] [address] [place] Calcium.ionized adjusted to pH 7.4 (BldA) [Moles/Vol] 1.22 mmol/L Normal 1.08-1.30 [facility] Comment on above: Order Comment: Speci men Type: ARTERIAL BLOOD SPECIMENOrdering Facility: [facility] Address: [address] [place] [address] Performed By: #### A LLMG ####[facility] LABCLIA [id number] [place] [address] [place] Carboxyhemoglobin (BldA) [Mass fraction] 1.5 % Normal 0.0-2.0 [facility] Comment on above: Order Comment: Speci men Type: ARTERIAL BLOOD SPECIMENOrdering Facility: [facility] Address: [address] [place] [address] Result Comment: Carb oxyhemoglobin Reference Range for Smokers: 2.0-8.0% Performed By: #### A LLMG ####[facility] LABCLIA [id number] [place] [address] [place] CO2 (Bld) [Partial pressure] 40 mm Hg Normal 36-46 [facility] Comment on above: Order Comment: Speci men Type: ARTERIAL BLOOD SPECIMENOrdering Facility: [facility] Address: [address] [place] [address] Performed By: #### A LLMG ####[facility] LABCLIA [id number] [place] [address] [place] CO2 adjusted to patient's actual temperature (Bld) [Partial pressure] 40 mmHg Normal 36-46 [facility] Comment on above: Order Comment: Speci men Type: ARTERIAL BLOOD SPECIMENOrdering Facility: [facility] Address: [address] [place] [address] Performed By: #### A LLMG ####[facility] LABCLIA [id number] [place] [address] [place] Glucose [Mass/Vol] 142 mg/dL High 60-105 [facility] Comment on above: Order Comment: Speci men Type: ARTERIAL BLOOD SPECIMENOrdering Facility: [facility] Address: [address] [place] [address] Performed By: #### A LLMG ####[facility] LABCLIA [id number] [place] [address] [place] HCO3 (Bld) [Moles/Vol] 26 mmol/L Normal 22-26 [facility] Comment on above: Order Comment: Speci men Type: ARTERIAL BLOOD SPECIMENOrdering Facility: [facility] Address: [address] [place] [address] Performed By: #### A LLMG ####[facility] LABCLIA [id number] [place] [address] [place] Hematocrit (Bld) [Volume fraction] 37.7 % Low 39.0-51.0 [facility] Comment on above: Order Comment: Speci men Type: ARTERIAL BLOOD SPECIMENOrdering Facility: [facility] Address: [address] [place] [address] Performed By: #### A LLMG ####[facility] LABCLIA [id number] [place] [address] [place] Hemoglobin (Bld) [Mass/Vol] 12.3 g/dL Low 13.0-17.0 [facility] Comment on above: Order Comment: Speci men Type: ARTERIAL BLOOD SPECIMENOrdering Facility: [facility] Address: [address] [place] [address] Performed By: #### A LLMG ####[facility] LABCLIA [id number] [place] [address] [place] Lactate [Moles/Vol] 1.8 mmol/L Normal 0.5-2.2 [facility] Comment on above: Order Comment: Speci men Type: ARTERIAL BLOOD SPECIMENOrdering Facility: [facility] Address: [address] [place] [address] Performed By: #### A LLMG ####[facility] LABCLIA [id number] [place] [address] [place] Magnesium [Moles/Vol] 0.52 mmol/L Normal 0.45-0.60 [facility] Comment on above: Order Comment: Speci men Type: ARTERIAL BLOOD SPECIMENOrdering Facility: [facility] Address: [address] [id number] Performed By: #### A LLMG ####[facility] LABCLIA [id number] [place] [address] [place] Methemoglobin (Bld) [Mass fraction] 0.8 % Normal 0.0-1.5 [facility] Comment on above: Order Comment: Speci men Type: ARTERIAL BLOOD SPECIMENOrdering Facility: [facility] Address: [address] [id number] Performed By: #### A LLMG ####[facility]CLIA [id number] [place] [address] [place] Oxygen (Bld) [Partial pressure] 116 mm Hg High 85-95 [facility] Comment on above: Order Comment: Speci men Type: ARTERIAL BLOOD SPECIMENOrdering Facility: [facility] Address: [address] [place] [address] Performed By: #### A LLMG ####[facility]CLIA [id number] [place] [address] [place] Oxygen adjusted to patient's actual temperature (Bld) [Partial pressure] 116 mmHg High 85-95 [facility] Comment on above: Order Comment: Speci men Type: ARTERIAL BLOOD SPECIMENOrdering Facility: [facility] Address: [address] [id number] Performed By: #### A LLMG ####[facility] LABCLIA [id number] [place] [id number] [place] Oxyhemoglobin (BldA) [Mass fraction] 97 % Normal 95-98 [facility] Comment on above: Order Comment: Speci men Type: ARTERIAL BLOOD SPECIMENOrdering Facility: [facility] Address: [address] [id number] Performed By: #### A LLMG ####[facility] LABCLIA [id number] [place] [id number] [place] pH (Bld) 7.43 [pH] Normal 7.35-7.45 [facility] Comment on above: Order Comment: Speci men Type: ARTERIAL BLOOD SPECIMENOrdering Facility: [facility] Address: [address] [place] [address] Performed By: #### A LLMG ####[facility] LABCLIA [id number] [place] [address] [place] pH adjusted to patient's actual temperature (Bld) 7.43 Normal 7.35-7.45 [facility] Comment on above: Order Comment: Speci men Type: ARTERIAL BLOOD SPECIMENOrdering Facility: [facility] Address: [address] [place] [address] Performed By: #### A LLMG ####[facility]CLIA [id number] [place] [address] [place] Potassium [Moles/Vol] 4.1 mmol/L Normal 3.5-5.0 [facility] Comment on above: Order Comment: Speci men Type: ARTERIAL BLOOD SPECIMENOrdering Facility: [facility] Address: [address] [place] [address] Performed By: #### A LLMG ####[facility]CLIA [id number] [place] [address] [place] Sodium [Moles/Vol] 137 mmol/L Normal 136-144 [facility] Comment on above: Order Comment: Speci men Type: ARTERIAL BLOOD SPECIMENOrdering Facility: [facility] Address: [address] [place] [address] Performed By: #### A LLMG ####[facility]CLIA [id number] [place] [address] [place] BRIEF OP NOTon 08-28-2024 BRIEF OP NOT Normal [facility] Bacteria Spec Anaerobe Culto n 08-28-2024 Bacteria identified Anaer cx Nom (Unsp spec) Negative Normal [facility] Comment on above: Performed By: #### 6 35-3, 6462-6, 18813-5 ####[facility]CLIA [id number] [place] [address] [place] Bacteria Wnd Culton 08-28-20 24 Bacteria identified Cx Nom (Wound) CULTURE, WOUND: No growth GRAM STAIN: No organisms seen No Polymorphonuclear Leukocytes Normal [facility] Comment on above: Performed By: #### 6 35-3, 6462-6, 05609-1 ####[facility]CLIA [id number] [place] [address] [place] CBC W Auto Differential pane l (Bld)on 08-28-2024 Basophils (Bld) [#/Vol] 0.00 10*3/uL Normal <0.11 [facility] Comment on above: Order Comment: Speci men Type: BLOOD SPECIMENOrdering Facility: [facility] Address: [address] [place] [address] Performed By: #### 5 7021-8 ####[facility]IA [id number] [place] [address] [place] Basophils/100 WBC (Bld) 0.0 % Normal [facility] Comment on above: Order Comment: Speci men Type: BLOOD SPECIMENOrdering Facility: [facility] Address: [address] [place] [address] Performed By: #### 5 7021-8 ####[facility]CLIA [id number] [place] [address] [place] Differential cell count method Nom (Bld) Manual Normal [facility] Comment on above: Order Comment: Speci men Type: BLOOD SPECIMENOrdering Facility: [facility] Address: [address] [place] [address] Performed By: #### 5 7021-8 ####[facility]CLIA [id number] [place] [address] [place] Eosinophils (Bld) [#/Vol] 0.00 10*3/uL Normal <0.46 [facility] Comment on above: Order Comment: Speci men Type: BLOOD SPECIMENOrdering Facility: [facility] Address: [address] [place] [address] Performed By: #### 5 7021-8 ####[facility]CLIA [id number] [place] [address] [place] Eosinophils/100 WBC (Bld) 0.0 % Normal [facility] Comment on above: Order Comment: Speci men Type: BLOOD SPECIMENOrdering Facility: [facility] Address: [address] [place] [address] Performed By: #### 5 7021-8 ####[facility]CLIA [id number] [place] [address] [place] Erythrocyte distribution width (RBC) [Ratio] 12.7 % Normal 11.5-15.0 [facility] Comment on above: Order Comment: Speci men Type: BLOOD SPECIMENOrdering Facility: [facility] Address: [address] [place] [address] Performed By: #### 5 7021-8 ####[facility] LABCLIA [id number] [address] [place] Hematocrit (Bld) [Volume fraction] 25.2 % Low 39.0-51.0 [facility] Comment on above: Order Comment: Speci men Type: BLOOD SPECIMENOrdering Facility: [facility] Address: [address] [place] [address] Performed By: #### 5 7021-8 ####[facility]CLIA [id number] [place] [address] [place] Hemoglobin (Bld) [Mass/Vol] 8.4 g/dL Low 13.0-17.0 [facility] Comment on above: Order Comment: Speci men Type: BLOOD SPECIMENOrdering Facility: [facility] Address: [address] [place] [address] Performed By: #### 5 7021-8 ####[facility]CLIA [id number] [place] [address] [place] Lymphocytes (Bld) [#/Vol] 0.27 10*3/uL Low 1.00-4.00 [facility] Comment on above: Order Comment: Speci men Type: BLOOD SPECIMENOrdering Facility: [facility] Address: [address] [place] [address] Performed By: #### 5 7021-8 ####[facility]CLIA [id number] [place] [address] [place] Lymphocytes/100 WBC (Bld) 1.7 % Normal [facility] Comment on above: Order Comment: Speci men Type: BLOOD SPECIMENOrdering Facility: [facility] Address: [address] [place] [address] Performed By: #### 5 7021-8 ####[facility]CLIA [id number] [place] [address] [place] MCH (RBC) [Entitic mass] 29.0 pg Normal 26.0-34.0 [facility] Comment on above: Order Comment: Speci men Type: BLOOD SPECIMENOrdering Facility: [facility] Address: [address] [place] [address] Performed By: #### 5 7021-8 ####[facility]CLIA [id number] [place] [address] [place] MCHC (RBC) [Mass/Vol] 33.3 g/dL Normal 30.5-36.0 [facility] Comment on above: Order Comment: Speci men Type: BLOOD SPECIMENOrdering Facility: [facility] Address: [address] [place] [address] Performed By: #### 5 7021-8 ####[facility]CLIA [id number] [place] [address] [place] MCV (RBC) [Entitic vol] 86.9 fL Normal 80.0-100.0 [facility] Comment on above: Order Comment: Speci men Type: BLOOD SPECIMENOrdering Facility: [facility] Address: [address] [place] [address] Performed By: #### 5 7021-8 ####[facility]CLIA [id number] [place] [address] [place] Monocytes (Bld) [#/Vol] 1.34 10*3/uL High <0.87 [facility] Comment on above: Order Comment: Speci men Type: BLOOD SPECIMENOrdering Facility: [facility] Address: [address] [place] [address] Performed By: #### 5 7021-8 ####[facility]CLIA [id number] [place] [address] [place] Monocytes/100 WBC (Bld) 8.5 % Normal [facility] Comment on above: Order Comment: Speci men Type: BLOOD SPECIMENOrdering Facility: [facility] Address: [address] [place] [address] Performed By: #### 5 7021-8 ####[facility]CLIA [id number] [place] [address] [place] Neutrophils (Bld) [#/Vol] 14.14 10*3/uL High 1.45-7.50 [facility] Comment on above: Order Comment: Speci men Type: BLOOD SPECIMENOrdering Facility: [facility] Address: [address] [place] [address] Performed By: #### 5 7021-8 ####[facility]CLIA [id number] [place] [address] [place] Neutrophils/100 WBC (Bld) 89.8 % Normal [facility] Comment on above: Order Comment: Speci men Type: BLOOD SPECIMENOrdering Facility: [facility] Address: [address] [place] [address] Performed By: #### 5 7021-8 ####[facility]CLIA [id number] [place] [address] [place] Nucleated RBC (Bld) [#/Vol] 10*3/uL Normal <0.01 [facility] Comment on above: Order Comment: Speci men Type: BLOOD SPECIMENOrdering Facility: [facility] Address: [address] [place] [address] Performed By: #### 5 7021-8 ####[facility]CLIA [id number] [place] [address] [place] Nucleated RBC/100 WBC (Bld) [Ratio] 0.0 /100 WBC Normal [facility] Comment on above: Order Comment: Speci men Type: BLOOD SPECIMENOrdering Facility: [facility] Address: [address] [place] [address] Performed By: #### 5 7021-8 ####[facility]CLIA [id number] [place] [address] [place] Platelet mean volume (Bld) [Entitic vol] 9.7 fL Normal 9.0-12.7 [facility] Comment on above: Order Comment: Speci men Type: BLOOD SPECIMENOrdering Facility: [facility] Address: [address] [place] [address] Performed By: #### 5 7021-8 ####[facility]CLIA [id number] [place] [address] [place] Platelets (Bld) [#/Vol] 218 10*3/uL Normal 150-400 [facility] Comment on above: Order Comment: Speci men Type: BLOOD SPECIMENOrdering Facility: [facility] Address: [address] [place] [address] Performed By: #### 5 7021-8 ####[facility]CLIA [id number] [place] [address] [place] Platelets Estimate (Bld) [#/Vol] Adequate Normal [facility] Comment on above: Order Comment: Speci men Type: BLOOD SPECIMENOrdering Facility: [facility] Address: [address] [place] [address] Performed By: #### 5 7021-8 ####[facility] LABCLIA [id number] [place] [address] [place] Polychromasia LM Ql (Bld) Slight Normal [facility] Comment on above: Order Comment: Speci men Type: BLOOD SPECIMENOrdering Facility: [facility] Address: [address] [place] [address] Performed By: #### 5 7021-8 ####[facility] LABCLIA [id number] [place] [address] [place] RBC (Bld) [#/Vol] 2.90 10*6/uL Low 4.20-6.00 [facility] Comment on above: Order Comment: Speci men Type: BLOOD SPECIMENOrdering Facility: [facility] Address: [address] [place] [address] Performed By: #### 5 7021-8 ####[facility] LABCLIA [id number] [place] [address] [place] RED CELL MORPH Reviewed: unremarkable Normal [facility] Comment on above: Order Comment: Speci men Type: BLOOD SPECIMENOrdering Facility: [facility] Address: [address] [place] [address] Performed By: #### 5 7021-8 ####[facility] LABCLIA [id number] [place] [address] [place] WBC (Bld) [#/Vol] 15.75 10*3/uL High 3.70-11.00 [facility] Comment on above: Order Comment: Speci men Type: BLOOD SPECIMENOrdering Facility: [facility] Address: [address] [place] [address] Performed By: #### 5 7021-8 ####[facility] LABIA [id number] [place] [address] [place] Comprehensive metabolic 2000 panelon 08-28-2024 Albumin [Mass/Vol] 4.2 g/dL Normal 3.9-4.9 [facility] Comment on above: Order Comment: Speci men Type: BLOOD SPECIMENOrdering Facility: [facility] Address: [address] [place] [address] Performed By: #### 1 9123-9, 2777-1, 3040-3, 09792-6 ####[facility] LABIA [id number] [place] [address] [place] ALP [Catalytic activity/Vol] 56 U/L Normal 38-113 [facility] Comment on above: Order Comment: Speci men Type: BLOOD SPECIMENOrdering Facility: [facility] Address: [address] [place] [address] Performed By: #### 1 9123-9, 2777-1, 3040-3, 36928-6 ####[facility] LABIA [id number] [place] [address] [place] ALT [Catalytic activity/Vol] 113 U/L High 10-54 [facility] Comment on above: Order Comment: Speci men Type: BLOOD SPECIMENOrdering Facility: [facility] Address: [address] [place] [address] Performed By: #### 1 9123-9, 2777-1, 3040-3, 89956-2 ####[facility] LABIA [id number] [place] [address] [place] Anion gap [Moles/Vol] 13 mmol/L Normal 8-15 [facility] Comment on above: Order Comment: Speci men Type: BLOOD SPECIMENOrdering Facility: [facility] Address: [address] [place] [address] Performed By: #### 1 9123-9, 2777-1, 3040-3, 27562-0 ####[facility] LABCLIA [id number] [place] [address] [place] AST [Catalytic activity/Vol] 123 U/L High 14-40 [facility] Comment on above: Order Comment: Speci men Type: BLOOD SPECIMENOrdering Facility: [facility] Address: [address] [place] [address] Performed By: #### 1 9123-9, 2777-1, 304-3, 95040-5 ####[facility] LABCLIA [id number] [place] [address] [place] Bilirubin [Mass/Vol] 1.0 mg/dL Normal 0.2-1.3 [facility] Comment on above: Order Comment: Speci men Type: BLOOD SPECIMENOrdering Facility: [facility] Address: [address] [place] [address] Performed By: #### 1 9123-9, 2777-1, 304-3, 51806-6 ####[facility] LABCLIA [id number] [place] [address] [place] Calcium [Mass/Vol] 8.0 mg/dL Low 8.5-10.2 [facility] Comment on above: Order Comment: Speci men Type: BLOOD SPECIMENOrdering Facility: [facility] Address: [address] [place] [address] Performed By: #### 1 9123-9, 2777-1, 3040-3, 09389-3 ####[facility] LABCLIA [id number] [place] [address] [place] Chloride [Moles/Vol] 103 mmol/L Normal 98-107 [facility] Comment on above: Order Comment: Speci men Type: BLOOD SPECIMENOrdering Facility: [facility] Address: [address] [place], [place] [address] Performed By: #### 1 9123-9, 2777-1, 3039-3, 49087-0 ####[facility] LABIA [id number] [address] [address] [place] CO2 [Moles/Vol] 23 mmol/L Normal 22-30 [facility] Comment on above: Order Comment: Speci men Type: BLOOD SPECIMENOrdering Facility: [facility] Address: [address] [place], [place] [address] Performed By: #### 1 9123-9, 2777-1, 3039-3, 36045-7 ####[facility] LABIA [id number] [place] [id number] [place] Creatinine [Mass/Vol] 0.98 mg/dL Normal 0.73-1.22 [facility] Comment on above: Order Comment: Speci men Type: BLOOD SPECIMENOrdering Facility: [facility] Address: [address] [place] [address] Performed By: #### 1 9123-9, 2777-1, 3, ####[facility] [id number] [place] [address] [place] Creatinine and Glomerular filtration rate.predicted panel (S/P/Bld) 92 mL/min/1.73m??? Normal >=60 [facility] Comment on above: Order Comment: Speci men Type: BLOOD SPECIMENOrdering Facility: [facility] Address: [address] [place] [address] Result Comment: Marisa mated Glomerular Filtration Rate [...] Performed By: #### 1 9123-9, 2777-1, 3040-3, 04029-8 ####[facility] LABCLIA [id number] [address] [address] [place] Glucose [Mass/Vol] 256 mg/dL High 74-99 [facility] Comment on above: Order Comment: Speci men Type: BLOOD SPECIMENOrdering Facility: [facility] Address: [address] [place] [address] Result Comment: The [place] [employer] (ADA) provides guidance for cutoff [...] Standards of Medical Care in Diabetes 2016, [place] [employer]. Diabetes Care. 2016.39(Suppl 1). Performed By: #### 1 9123-9, 2777-1, 3040-3, 08635-4 ####[facility] LABCLIA [id number] [address] [address] [place] Potassium [Moles/Vol] 4.6 mmol/L Normal 3.7-5.1 [facility] Comment on above: Order Comment: Speci men Type: BLOOD SPECIMENOrdering Facility: [facility] Address: [address] [place] [address] Performed By: #### 1 9123-9, 2777-1, 3040-3, 81585-4 ####[facility] LABCLIA [id number] [place] [id number] [place] Protein [Mass/Vol] 5.4 g/dL Low 6.3-8.0 [facility] Comment on above: Order Comment: Speci men Type: BLOOD SPECIMENOrdering Facility: [facility] Address: [address] [place], [place] [address] Performed By: #### 1 9123-9, 2777-1, 3040-3, 34934-3 ####[facility] LABCLIA [id number] [address] [address] [place] Sodium [Moles/Vol] 139 mmol/L Normal 136-144 [facility] Comment on above: Order Comment: Speci men Type: BLOOD SPECIMENOrdering Facility: [facility] Address: [address] [place], [place] [address] Performed By: #### 1 9123-9, 2777-1, 3039-3, 99159-0 ####[facility] LABCLIA [id number] [address] [address] [place] Urea nitrogen [Mass/Vol] 17 mg/dL Normal 9-24 [facility] Comment on above: Order Comment: Speci men Type: BLOOD SPECIMENOrdering Facility: [facility] Address: [address] [place], [place] [address] Performed By: #### 1 9123-9, 2777-1, 3039-3, 83139-7 ####[facility] LABCLIA [id number] [address] [address] [place] Lipase SerPl-cCncon 08-28-20 24 Lipase [Catalytic activity/Vol] 19 U/L Normal 16-61 [facility] Comment on above: Order Comment: Speci men Type: BLOOD SPECIMENOrdering Facility: [facility] Address: [address] [place] [address] Performed By: #### 1 9123-9, 2777-1, 3040-3, 66402-7 ####[facility] LABCLIA [id number] [address] [address] [place] Magnesium SerPl-mCncon 08-28 Magnesium [Mass/Vol] 1.7 mg/dL Normal 1.7-2.3 [facility] Comment on above: Order Comment: Theo narvaez Type: BLOOD SPECIMENOrdering Facility: [facility] Address: [address] [place] [address] Performed By: #### 1 9123-9, 2777-1, 3040-3, 62641-5 ####[facility] LABCLIA [id number] [address] STATES OF [facility] Microorganism Spec Culton Microorganism identified Cx Nom (Unsp spec) CULTURE, FUNGAL: No Fungus isolated after 28 days FUNGAL SMEAR: No fungus seen Normal [facility] Comment on above: Performed By: #### 6 35-3, 6462-6, 42564-5 ####[facility] LABCLIA [id number] [address] [place] OPERATIVE NOon 08-28-2024 OPERATIVE NO Normal [facility] PT panel Coag (PPP)on 2023 INR Coag (PPP) [Relative time] 1.1 {INR} Normal 0.9-1.3 [facility] Comment on above: Order Comment: Theo narvaez Type: BLOOD SPECIMENOrdering Facility: [facility] Address: [address] [place] [address] Result Comment: Carmita min K Antagonist (VKA) Therapeutic Range: INR 2 to 3 (Target INR of 2.5)Note: For patients treated with VKA drugs, such as warfarin, the [place] [employer] 2012 Guideline recommends [...] al. Chest 2012, 141:7S-47SNishimura RA, et al. [facility] 2017, 70: 252-289 Performed By: #### 3 4528-0, 03024-7 ####[facility] LABCLIA [id number] [place] [address] [place] PT Coag (PPP) [Time] 11.9 s Normal 9.7-13.0 [facility] Comment on above: Order Comment: Speci men Type: BLOOD SPECIMENOrdering Facility: [facility] Address: [address] [place] [address] Performed By: #### 3 4528-0, 34446-0 ####[facility] LABIA [id number] [place] [address] [place] Phosphate SerPl-mCncon 08-28 Phosphate [Mass/Vol] 4.1 mg/dL Normal 2.7-4.8 [facility] Comment on above: Order Comment: Speci men Type: BLOOD SPECIMENOrdering Facility: [facility] Address: [address] [place] [address] Performed By: #### 1 9123-9, 2777-1, 3040-3, 91279-4 ####[facility] [id number] [place] [address] [place] STAPHYLOCOCCUS AUREUS AND MR SA SCREEN, PCR, NASALon 08-28-2024 S. aureus and MRSA panel NAZ+probe (Nose) Not detected Normal Not Detected [facility] Comment on above: Order Comment: Speci men Type: SWABOrdering Facility: [facility] Address: [address] [place] [address] Performed By: #### S APCR ####[facility] LABIA [id number] [place] [address] [place] SURGICAL PATHOLOGYon 024 CASE REPORT Normal [facility] Comment on above: Order Comment: Speci men Type: TISSUE SPECIMENOrdering Facility: [facility] Address: [address] [place] [address] Result Comment: Surg [facility] Pathology Report Case: [id number] Provider: Jesus Jacobson MD Collected: 08/28/2024 05:31 PMOrdering Location: Admitting Received: 08/29/2024 03:53 PMPathologist: Lilia Hendricks MDSpecimens: A) - Lymph Node (Specify Site in Comments), retro portal lymph node B) - Pancreaticoduodenectomy (Whipple Procedure) Performed By: #### S ####[facility] LABCLIA [id number] [address] [place] CLINICAL HISTORY Normal [facility] Comment on above: Order Comment: Speci men Type: TISSUE SPECIMENOrdering Facility: [facility] Address: [address] [place] [address] Result Comment: Pre- op diagnosis:IPMN (intraductal papillary mucinous neoplasm) [D49.0] Performed By: #### S ####[facility] LABIA [id number] [address] DIAGNOSIS COMMENT Normal [facility] Comment on above: Order Comment: Speci men Type: TISSUE SPECIMENOrdering Facility: [facility] Address: [address] [place] [address] Result Comment: -Int raductal papillary mucinous neoplasm (3.9 cm), intestinal type, involving the distal main pancreatic duct and and branch ducts, with focal high-grade dysplasia-No invasive tumor identified in the entirely submitted lesion-Background pancreas with chronic pancreatitis and lobulocentric atrophy-The margins are negative for tumor-Spleen with mild reactive changes-25 benign lymph nodes Performed By: #### S ####[facility] LABIA [id number] [address] FINAL DIAGNOSIS Normal [facility] Comment on above: Order Comment: Speci men Type: TISSUE SPECIMENOrdering Facility: [facility] Address: [address] [place] [address] Result Comment: A. R etroportal lymph node, resection-1 benign lymph nodeB. Pancreas, duodenum, bile duct, pancreatoduodenectomy-Intraductal papillary mucinous neoplasm (3.9 cm), intestinal type, with focal high-grade dysplasia-The margins are negative for tumor-25 benign lymph nodes-See comment Performed By: #### S ####[facility] LABCLIA [id number] [address] OF [facility] FINAL PERFORMING LAB Normal [facility] Comment on above: Order Comment: Speci men Type: TISSUE SPECIMENOrdering Facility: [facility] Address: [address] [place] [address] Result Comment: Diag nostic interpretation performed at [facility], [address] [place] [address] CLIA# [id number] Director: Yakov Gurrola M.D. Performed By: #### S ####[facility] LABIA [id number] [address] GROSS DESCRIPTION Normal [facility] Comment on above: Order Comment: Speci men Type: TISSUE SPECIMENOrdering Facility: [facility] Address: [address] [place] [address] Result Comment: A. L ymph Node (Specify Site in Comments)Received in formalin designated retroportal lymph node is a clemente-purple lymph node with attached yellow fatty tissue measuring 2.8 x 0.8 x 0.4 cm. The lymph node is bisected and totally submitted in 1 cassette.Gross examination performed at [facility], [address] [place] [address] CLIA# [id number] August 30, 2024 5:11 PMB. Pancreaticoduodenectomy (Whipple [...] follows: - Common bile duct, outer surface: [place] - Anterior outer surface of pancreas: Red [...] red and soft. Malpighian corpuscles are not prominent.[employer] sections are submitted as follows:B1: Common bile duct margin, en faceB2: Proximal and distal intestinal resection margins, perpendicular, corporate representative sections - Lesion submitted from distal to proximal in cassettes [id number]: Lesion and anterior peripancreatic soft tissue, totally submittedB7-B10: Lesion and posterior peripancreatic soft tissue, totally dnoqsszakC19: Lesion, remaining, totally vvnrsrtzcV60: Dilated main pancreatic duct at the body, corporate representative yhrrhpkY38-L95: Uncinate process, perpendicular, totally yqydbgjnkM43: Dilated main pancreatic duct at the head,, bile duct, and duodenum, corporate representative cwfxbwqA94-L01: Vascular groove, perpendicular, totally vyrkglwatQ81: Spleen, corporate representative uipyryzoO63-Z98: 1 possible lymph node per cassette, bisected and totally eelfebzchT27: 2 possible lymph nodes, totally htxffswxnC94: 5 possible lymph nodes, totally kxixsmmdfF09-T01: Peripancreatic adipose tissue for microscopic lymph node identification, totally submittedGross examination performed at [facility], [address] [place], [place] [id number] 09/01/24 11:46 AM Performed By: #### S ####[facility] LABIA [id number] [place] [address] [place] XR CHEST 1V FRONTAL PORTon 1 10-28-2023 XR CHEST 1V FRONTAL PORT Normal [facility] aPTT PPPon 08-28-2024 aPTT Coag (PPP) [Time] 21.7 s Low 23.0-32.4 [facility] Comment on above: Order Comment: Speci men Type: BLOOD SPECIMENOrdering Facility: [facility] Address: [address] [place] [address] Performed By: #### 3 4528-0, 56890-4 ####[facility] [id number] [place] [address] [place] CBC W Auto Differential pane l (Bld)on 08-22-2024 Basophils (Bld) [#/Vol] 0.04 10*3/uL Normal <0.11 [facility] Comment on above: Order Comment: Speci men Type: BLOOD SPECIMENOrdering Facility: [facility] Address: [address] [place] [address] Performed By: #### 5 7021-8 ####[facility] LABIA [id number] [place] [address] [place] Basophils/100 WBC (Bld) 0.6 % Normal [facility] Comment on above: Order Comment: Speci men Type: BLOOD SPECIMENOrdering Facility: [facility] Address: [address] [place] [address] Performed By: #### 5 7021-8 ####[facility] LABCLIA [id number] [place] [address] [place] Differential cell count method Nom (Bld) Auto Normal [facility] Comment on above: Order Comment: Speci men Type: BLOOD SPECIMENOrdering Facility: [facility] Address: [address] [place] [address] Performed By: #### 5 7021-8 ####[facility] LABCLIA [id number] [place] [address] [place] Eosinophils (Bld) [#/Vol] 0.04 10*3/uL Normal <0.46 [facility] Comment on above: Order Comment: Speci men Type: BLOOD SPECIMENOrdering Facility: [facility] Address: [address] [place] [address] Performed By: #### 5 7021-8 ####[facility] LABCLIA [id number] [place] [address] [place] Eosinophils/100 WBC (Bld) 0.6 % Normal [facility] Comment on above: Order Comment: Speci men Type: BLOOD SPECIMENOrdering Facility: [facility] Address: [address] [place] [address] Performed By: #### 5 7021-8 ####[facility] LABCLIA [id number] [place] [address] [place] Erythrocyte distribution width (RBC) [Ratio] 12.5 % Normal 11.5-15.0 [facility] Comment on above: Order Comment: Speci men Type: BLOOD SPECIMENOrdering Facility: [facility] Address: [address] [place] [address] Performed By: #### 5 7021-8 ####[facility] LABCLIA [id number] [place] [address] [place] Hematocrit (Bld) [Volume fraction] 42.3 % Normal 39.0-51.0 [facility] Comment on above: Order Comment: Speci men Type: BLOOD SPECIMENOrdering Facility: [facility] Address: [address] [place] [address] Performed By: #### 5 7021-8 ####[facility] LABIA [id number] [place] [address] [place] Hemoglobin (Bld) [Mass/Vol] 13.6 g/dL Normal 13.0-17.0 [facility] Comment on above: Order Comment: Speci men Type: BLOOD SPECIMENOrdering Facility: [facility] Address: [address] [place] [address] Performed By: #### 5 7021-8 ####[facility] LABIA [id number] [place] [address] [place] Immature granulocytes (Bld) [#/Vol] 0.03 10*3/uL Normal <0.10 [facility] Comment on above: Order Comment: Speci men Type: BLOOD SPECIMENOrdering Facility: [facility] Address: [address] [place] [address] Performed By: #### 5 7021-8 ####[facility] LABIA [id number] [place] [address] [place] Immature granulocytes/100 WBC (Bld) 0.5 % Normal [facility] Comment on above: Order Comment: Speci men Type: BLOOD SPECIMENOrdering Facility: [facility] Address: [address] [place] [address] Performed By: #### 5 7021-8 ####[facility] LABCLIA [id number] [place] [address] [place] Lymphocytes (Bld) [#/Vol] 1.67 10*3/uL Normal 1.00-4.00 [facility] Comment on above: Order Comment: Speci men Type: BLOOD SPECIMENOrdering Facility: [facility] Address: [address] [place] [address] Performed By: #### 5 7021-8 ####[facility] LABIA [id number] [place] [address] [place] Lymphocytes/100 WBC (Bld) 25.6 % Normal [facility] Comment on above: Order Comment: Speci men Type: BLOOD SPECIMENOrdering Facility: [facility] Address: [address] [place] [address] Performed By: #### 5 7021-8 ####[facility] [id number] [place] [address] [place] MCH (RBC) [Entitic mass] 28.6 pg Normal 26.0-34.0 [facility] Comment on above: Order Comment: Speci men Type: BLOOD SPECIMENOrdering Facility: [facility] Address: [address] [place] [address] Performed By: #### 5 7021-8 ####[facility] [id number] [place] [address] [place] MCHC (RBC) [Mass/Vol] 32.2 g/dL Normal 30.5-36.0 [facility] Comment on above: Order Comment: Speci men Type: BLOOD SPECIMENOrdering Facility: [facility] Address: [address] [place] [address] Performed By: #### 5 7021-8 ####[facility] [id number] [place] [address] [place] MCV (RBC) [Entitic vol] 89.1 fL Normal 80.0-100.0 [facility] Comment on above: Order Comment: Speci men Type: BLOOD SPECIMENOrdering Facility: [facility] Address: [address] [place] [address] Performed By: #### 5 7021-8 ####[facility] LABCLIA [id number] [place] [address] [place] Monocytes (Bld) [#/Vol] 0.49 10*3/uL Normal <0.87 [facility] Comment on above: Order Comment: Speci men Type: BLOOD SPECIMENOrdering Facility: [facility] Address: [address] [place] [address] Performed By: #### 5 7021-8 ####[facility] LABCLIA [id number] [place] [address] [place] Monocytes/100 WBC (Bld) 7.5 % Normal [facility] Comment on above: Order Comment: Speci men Type: BLOOD SPECIMENOrdering Facility: [facility] Address: [address] [place] [address] Performed By: #### 5 7021-8 ####[facility] LABCLIA [id number] [place] [address] [place] Neutrophils (Bld) [#/Vol] 4.25 10*3/uL Normal 1.45-7.50 [facility] Comment on above: Order Comment: Speci men Type: BLOOD SPECIMENOrdering Facility: [facility] Address: [address] [place] [address] Performed By: #### 5 7021-8 ####[facility] LABCLIA [id number] [place] [address] [place] Neutrophils/100 WBC (Bld) 65.2 % Normal [facility] Comment on above: Order Comment: Speci men Type: BLOOD SPECIMENOrdering Facility: [facility] Address: [address] [place] [address] Performed By: #### 5 7021-8 ####[facility] LABCLIA [id number] [place] [address] [place] Nucleated RBC (Bld) [#/Vol] 10*3/uL Normal <0.01 [facility] Comment on above: Order Comment: Speci men Type: BLOOD SPECIMENOrdering Facility: [facility] Address: [address] [place] [address] Performed By: #### 5 7021-8 ####[facility] LABCLIA [id number] [place] [address] [place] Nucleated RBC/100 WBC (Bld) [Ratio] 0.0 /100 WBC Normal [facility] Comment on above: Order Comment: Speci men Type: BLOOD SPECIMENOrdering Facility: [facility] Address: [address] [place] [address] Performed By: #### 5 7021-8 ####[facility] LABCLIA [id number] [place] [address] [place] Platelet mean volume (Bld) [Entitic vol] 9.3 fL Normal 9.0-12.7 [facility] Comment on above: Order Comment: Speci men Type: BLOOD SPECIMENOrdering Facility: [facility] Address: [address] [place] [address] Performed By: #### 5 7021-8 ####[facility] LABIA [id number] [place] [address] [place] Platelets (Bld) [#/Vol] 245 10*3/uL Normal 150-400 [facility] Comment on above: Order Comment: Speci men Type: BLOOD SPECIMENOrdering Facility: [facility] Address: [address] [place] [address] Performed By: #### 5 7021-8 ####[facility] LABIA [id number] [place] [address] [place] RBC (Bld) [#/Vol] 4.75 10*6/uL Normal 4.20-6.00 [facility] Comment on above: Order Comment: Speci men Type: BLOOD SPECIMENOrdering Facility: [facility] Address: [address] [place] [address] Performed By: #### 5 7021-8 ####[facility] LABCLIA [id number] [place] [address] [place] WBC (Bld) [#/Vol] 6.52 10*3/uL Normal 3.70-11.00 [facility] Comment on above: Order Comment: Speci men Type: BLOOD SPECIMENOrdering Facility: [facility] Address: [address] [place] [address] Performed By: #### 5 7021-8 ####[facility] LABCLIA [id number] [place] [address] [place] CNNURSEon 08-22-2024 CNNURSE Normal [facility] CNOVon 08-22-2024 CNOV Normal [facility] CONFIRM BLOOD TYPEon 024 ABO O Normal [facility] Comment on above: Order Comment: Speci men Type: BLOOD SPECIMENOrdering Facility: [facility] Address: [address] [place] [address] Performed By: #### C ONABO ####[facility] BLOOD BANKIA [id number] [place] [address] [place] Rh Nom (Bld) Positive Normal [facility] Comment on above: Order Comment: Speci men Type: BLOOD SPECIMENOrdering Facility: [facility] Address: [address] [place] [address] Performed By: #### C ONABO ####[facility] BLOOD BANKIA [id number] [place] [address] [place] Comprehensive metabolic 2000 panelon 08-22-2024 Albumin [Mass/Vol] 4.7 g/dL Normal 3.9-4.9 [facility] Comment on above: Order Comment: Speci men Type: BLOOD SPECIMENOrdering Facility: [facility] Address: [address] [place] [address] Performed By: #### 2 4323-8 ####[facility] LABCLIA [id number] [place] [address] [place] ALP [Catalytic activity/Vol] 108 U/L Normal 38-113 [facility] Comment on above: Order Comment: Speci men Type: BLOOD SPECIMENOrdering Facility: [facility] Address: [address] [place] [address] Performed By: #### 2 4323-8 ####[facility] LABCLIA [id number] [place] [address] [place] ALT [Catalytic activity/Vol] 35 U/L Normal 10-54 [facility] Comment on above: Order Comment: Speci men Type: BLOOD SPECIMENOrdering Facility: [facility] Address: [address] [place] [address] Performed By: #### 2 4323-8 ####[facility] LABCLIA [id number] [place] [address] [place] Anion gap [Moles/Vol] 14 mmol/L Normal 8-15 [facility] Comment on above: Order Comment: Speci men Type: BLOOD SPECIMENOrdering Facility: [facility] Address: [address] [place] [address] Performed By: #### 2 4323-8 ####[facility] LABCLIA [id number] [place] [address] [place] AST [Catalytic activity/Vol] 31 U/L Normal 14-40 [facility] Comment on above: Order Comment: Speci men Type: BLOOD SPECIMENOrdering Facility: [facility] Address: [address] [place] [address] Performed By: #### 2 4323-8 ####[facility] LABCLIA [id number] [place] [id number] [place] Bilirubin [Mass/Vol] 0.2 mg/dL Normal 0.2-1.3 [facility] Comment on above: Order Comment: Speci men Type: BLOOD SPECIMENOrdering Facility: [facility] Address: [address] [place] [id number] Performed By: #### 2 4323-8 ####[facility] LABCLIA [id number] [address] [address] [place] Calcium [Mass/Vol] 9.9 mg/dL Normal 8.5-10.2 [facility] Comment on above: Order Comment: Speci men Type: BLOOD SPECIMENOrdering Facility: [facility] Address: [address] [place], [place] [address] Performed By: #### 2 4323-8 ####[facility] LABCLIA [id number] [place] [address] [place] Chloride [Moles/Vol] 103 mmol/L Normal 98-107 [facility] Comment on above: Order Comment: Speci men Type: BLOOD SPECIMENOrdering Facility: [facility] Address: [address] [place], [place] [address] Performed By: #### 2 4323-8 ####[facility] LABCLIA [id number] [place] [address] [place] CO2 [Moles/Vol] 26 mmol/L Normal 22-30 [facility] Comment on above: Order Comment: Speci men Type: BLOOD SPECIMENOrdering Facility: [facility] Address: [address] [place], [place] [address] Performed By: #### 2 4323-8 ####[facility] LABCLIA [id number] [place] [id number] [place] Creatinine [Mass/Vol] 1.10 mg/dL Normal 0.73-1.22 [facility] Comment on above: Order Comment: Speci men Type: BLOOD SPECIMENOrdering Facility: [facility] Address: [address] [place], [place] [address] Performed By: #### 2 4323-8 ####[facility] LABCLIA [id number] [place] [address] [place] Creatinine and Glomerular filtration rate.predicted panel (S/P/Bld) 80 mL/min/1.73m??? Normal >=60 [facility] Comment on above: Order Comment: Theo narvaez Type: BLOOD SPECIMENOrdering Facility: [facility] Address: [address] [place] [address] Result Comment: Marisa mated Glomerular Filtration Rate [...] actual GFR. Performed By: #### 2 4323-8 ####[facility] LABIA [id number] [place] [address] [place] Glucose [Mass/Vol] 164 mg/dL High 74-99 [facility] Comment on above: Order Comment: Theo narvaez Type: BLOOD SPECIMENOrdering Facility: [facility] Address: [address] [place] [address] Result Comment: The [place] [employer] (ADA) provides guidance for cutoff [...] Standards of Medical Care in Diabetes 2016, [place] [employer]. Diabetes Care. 2016.39(Suppl 1). Performed By: #### 2 4323-8 ####[facility] LABIA [id number] [place] [address] [place] Potassium [Moles/Vol] 4.1 mmol/L Normal 3.7-5.1 [facility] Comment on above: Order Comment: Speci men Type: BLOOD SPECIMENOrdering Facility: [facility] Address: [address] [place], [place] [address] Performed By: #### 2 4323-8 ####[facility] LABCLIA [id number] [place] [address] [place] Protein [Mass/Vol] 7.2 g/dL Normal 6.3-8.0 [facility] Comment on above: Order Comment: Speci men Type: BLOOD SPECIMENOrdering Facility: [facility] Address: [address] [place] [address] Performed By: #### 2 4323-8 ####[facility] LABCLIA [id number] [place] [address] [place] Sodium [Moles/Vol] 143 mmol/L Normal 136-144 [facility] Comment on above: Order Comment: Speci men Type: BLOOD SPECIMENOrdering Facility: [facility] Address: [address] [place] [address] Performed By: #### 2 4323-8 ####[facility] LABCLIA [id number] [place] [address] [place] Urea nitrogen [Mass/Vol] 15 mg/dL Normal 9-24 [facility] Comment on above: Order Comment: Speci men Type: BLOOD SPECIMENOrdering Facility: [facility] Address: [address] [place] [address] Performed By: #### 2 4323-8 ####[facility] LABCLIA [id number] [place] [address] [place] ECG COMPLETEon 08-22-2024 ECG COMPLETE Normal [facility] HISTORY PHYSICALon HISTORY PHYSICAL Normal [facility] TYPE AND SCREEN,30 DAYon ABO O Normal [facility] Comment on above: Order Comment: Speci men Type: BLOOD SPECIMENOrdering Facility: [facility] Address: [address] [place] [address] Performed By: #### T SCR30 ####[facility] BLOOD BANKCLIA [id number] [place] [address] [place] Rh Nom (Bld) Positive Normal [facility] Comment on above: Order Comment: Speci men Type: BLOOD SPECIMENOrdering Facility: [facility] Address: [address] [place] [address] Performed By: #### T SCR30 ####[facility] BLOOD BANKCLIA [id number] [place] [address] [place] XR CHEST 2V FRONTAL/LATon XR CHEST 2V FRONTAL/LAT Normal [facility] XR Chest PA and Lateralon IMPRESSION: No acute disease identified in the lungs or mediastinum. Little interval change since 01/31/2024. [employer] Stamper And Repairer: PAPITO Transcribe Date/Time: Aug 22 2024 4:29P Dictated by : GEE LITTLEJOHN MD This examination was interpreted and the report reviewed and electronically signed by: GEE LITTLEJOHN MD on Aug 22 2024 4:32PM [facility] DIVISION OF RADIOLOGY * * *Final Report* [...] to the sternum. DIVISION OF RADIOLOGY Provider, Rabia Stefanie engle Alvarado - 08/22/2024 * * *Final Report* * [...] or mediastinum. Little interval change since 01/31/2024. Mold Stamper And Repairer: [facility] H[facility]PITALYvrose Transcribe Date/Time: Aug 22 2024 4:29P Dictated by : GEE LITTLEJOHN MD This examination was interpreted and the report reviewed and electronically signed by: GEE LITTLEJOHN MD on Aug 22 2024 4:32PM EST [facility] Radiology Study observation (narrative) [facility] XR Chest PA and LateralOrder ed By: Ccf Provider on 08-22-2024 [facility] [address] CHEST WO CONTRASTon 08-11 CT CHEST [...] Shayy Granda MD 08/11/24 Final result Normal [facility] 08-08-2024 [facility] Normal [facility] XR RIBS LEFT INCLUDE CHEST ( [...] Lauri Billy MD 08/08/24 Final result Normal [facility] XR Ribs - left Views and [facility] 08-08-2024 No acute abnormaliti es seen in the chest or left ribs [facility] RIS CONSOLIDATED EXAMINATION: 5 XRAY VIEWS OF THE LEFT RIBS WITH FRONTAL XRAY VIEW OF THE CHEST 08/08/2024 1:42 pm COMPARISON: 03/17/2024 HISTORY: ORDERING SYSTEM PROVIDED HISTORY: fall/injury TECHNOLOGIST PROVIDED HISTORY: fall/injury FINDINGS: Chest: Heart size stable. No acute airspace disease. No pneumothorax. No pleural effusion. No pulmonary vascular congestion or edema. Left ribs: No fracture. No destructive bony abnormality. [facility] RIS CONSOLIDATED Lauri Billy MD - 08/08/2024 [...] in the chest or left ribs [facility] Radiology Study [facility] (narrative) [facility]dy[facility]s - left Views and [place] st PAOrdered By: Lauri Billy on 08-08-2024 [facility] [employer] Work Phone: CBC with Auto Differentialon 08-05-2024 Basophils (Bld) [#/Vol] 0.04 10*3/uL [facility] Basophils/100 WBC (Bld) 1 % 0 - 2 % [facility] Eosinophils (Bld) [#/Vol] 0.07 10*3/uL [facility] Eosinophils/100 WBC (Bld) 1 % 1 - 4 % [facility] Erythrocyte distribution width (RBC) [Ratio] 12.4 % 11.8 - 14.4 % [facility] Hematocrit (Bld) [Volume fraction] 41.8 % 40.7 - 50.3 % [facility] Hemoglobin (Bld) [Mass/Vol] 14.1 g/dL 13.0 - 17.0 g/dL [facility] Immature granulocytes (Bld) [#/Vol] 0.03 10*3/uL [facility] Immature granulocytes/100 WBC (Bld) 0 % 0 [facility] Lymphocytes/100 WBC (Bld) 30 % 24 - 43 % [facility] Lymphocytes/100 WBC (Bld) 2.68 % [facility] MCH (RBC) [Entitic mass] 28.8 pg 25.2 - 33.5 pg [facility] MCHC (RBC) [Mass/Vol] 33.7 g/dL 28.4 - 34.8 g/dL [facility] MCV (RBC) [Entitic vol] 85.5 fL 82.6 - 102.9 fL [facility] Monocytes/100 WBC (Bld) 8 % 3 - 12 % [facility] Monocytes/100 WBC (Bld) 0.67 % [facility] Neutrophils/100 WBC (Bld) 60 % 36 - 65 % [facility] Nucleated RBC/100 WBC (Bld) [Ratio] 0.0 % 0.0 per 100 WBC [facility] Platelet mean volume (Bld) [Entitic vol] 9.1 fL 8.1 - 13.5 fL [facility] Platelets (Bld) [#/Vol] 283 10*3/uL [facility] RBC (Bld) [#/Vol] 4.89 10*6/uL 4.21 - 5.7 7 m/uL [facility] Segmented neutrophils/100 WBC (Bld) 5.39 % [facility] WBC other (Bld) [#/Vol] 8.9 [facility] CBC with Diffon 08-05-2024 Abs. Basophil 0.04 k/uL Normal 0.00-0.20 [facility] Comment on above: Performed By: #### LAUREL ZHU #### [facility] [address] [place] [address] Skoog Operator: Ziggy Hilario MD Abs.Imm.Granulocyte 0.03 k/uL Normal 0.00-0.30 [facility] Comment on above: Performed By: #### LAUREL ZHU #### [facility] [address] [place], [place] [address] Skoog Operator: Ziggy Hilario MD Abs.Neutrophil (Seg) 5.39 k/uL Normal 1.50-8.10 [facility] Comment on above: Performed By: #### U MICAO, UAX #### [facility] [address] [place], [facility] Skoog Operator: Ziggy Hilario MD Basophils/100 WBC (Bld) 1 % Normal 0-2 [facility] Comment on above: Performed By: #### U MICAO, UAX #### [address] [place] [address] Skoog Operator: Ziggy Hilario MD Eosinophils (Bld) [#/Vol] 0.07 10*3/uL Normal 0.00-0.44 [facility] Comment on above: Performed By: #### U MICAO, UAX #### [address] [place], [facility]83 Skoog Operator: Ziggy Hilario MD Eosinophils/100 WBC (Bld) 1 % Normal 1-4 [facility] Comment on above: Performed By: #### U MICAO, UAX #### [address] [place] [address] Skoog Operator: Ziggy Hilario MD Erythrocyte distribution width (RBC) [Ratio] 12.4 % Normal 11.8-14.4 [facility] Comment on above: Performed By: #### U MICAO, UAX #### [address] [place] [address] Skoog Operator: Ziggy Hilario MD Hematocrit (Bld) [Volume fraction] 41.8 % Normal 40.7-50.3 [facility] Comment on above: Performed By: #### U MICAO, UAX #### [address] [place] [address] Skoog Operator: Ziggy Hilario MD Hemoglobin (Bld) [Mass/Vol] 14.1 g/dL Normal 13.0-17.0 [facility] Comment on above: Performed By: #### U MICAO, UAX #### [facility] [address] [place], [place] [address] Skoog Operator: Ziggy Hilario MD Immature granulocytes/100 WBC (Bld) 0 % Normal 0 [facility] Comment on above: Performed By: #### U MICAO, UAX #### [facility] [address] [place], [facility]83 Skoog Operator: Ziggy Hilario MD Lymphocytes (Bld) [#/Vol] 2.68 10*3/uL Normal 1.10-3.70 [facility] Comment on above: Performed By: #### U CASSYO, UAX #### [facility] [address] [place], [facility]83 Skoog Operator: Ziggy Hilario MD Lymphocytes/100 WBC (Bld) 30 % Normal 24-43 [facility] Comment on above: Performed By: #### U MICAO, UAX #### [facility] [address] [place], [place] [address] Skoog Operator: Ziggy Hilario MD MCH (RBC) [Entitic mass] 28.8 pg Normal 25.2-33.5 [facility] Comment on above: Performed By: #### U MICAO, UAX #### [facility] [address] [place] [address] Skoog Operator: Ziggy Hilario MD MCHC (RBC) [Mass/Vol] 33.7 g/dL Normal 28.4-34.8 [facility] Comment on above: Performed By: #### U MICAO, UAX #### [facility] [address] [place], [place] [address] Skoog Operator: Ziggy Hilario MD MCV (RBC) [Entitic vol] 85.5 fL Normal 82.6-102.9 [facility] Comment on above: Performed By: #### U REBEKA, UAX #### [facility] [address] [place] [address] Skoog Operator: Ziggy Hilario MD Monocytes (Bld) [#/Vol] 0.67 10*3/uL Normal 0.10-1.20 [facility] Comment on above: Performed By: #### U REBEKA, UAX #### [facility] [address] [place], [place] [address] Skoog Operator: Ziggy Hilario MD Monocytes/100 WBC (Bld) 8 % Normal 3-12 [facility] Comment on above: Performed By: #### Fantasma STALEY UAX #### [address] [place], [place] [address] Skoog Operator: Ziggy Hilario MD Neutrophil (Seg) 60 % Normal 36-65 [facility] Comment on above: Performed By: #### U REBEKA UAX #### [address] [place], [place] [address] Skoog Operator: Ziggy Hilario MD NRBC Automated 0.0 per 100 WBC Normal 0.0 [facility] Comment on above: Performed By: #### U REBEKA, UAX #### [facility] [address] [place], [place] [address] Skoog Operator: Ziggy Hilario MD Platelet mean volume (Bld) [Entitic vol] 9.1 fL Normal 8.1-13.5 [facility] Comment on above: Performed By: #### U CASSYO, UAX #### [facility] [address] [place], [place] [address] Skoog Operator: Ziggy Hilario MD Platelets (Bld) [#/Vol] 283 10*3/uL Normal 138-453 [facility] Comment on above: Performed By: #### U MICAO, UAX #### [facility] [address] [place] [address] Skoog Operator: Ziggy Hilario MD RBC (Bld) [#/Vol] 4.89 10*6/uL Normal 4.21-5.77 [facility] Comment on above: Performed By: #### U MICAO, UAX #### [facility] [address] [place] [id number] Skoog Operator: Ziggy Hilario MD WBC (Bld) [#/Vol] 8.9 10*3/uL Normal 3.5-11.3 [facility] Comment on above: Performed By: #### U MICAO, UAX #### [facility] [address] [place] [address] Skoog Operator: Ziggy Hilario MD CNPNon 08-05-2024 CNPN Normal [facility] Comp Metabolic Profon 2023 Albumin [Mass/Vol] 4.5 g/dL Normal 3.5-5.2 [facility] Comment on above: Performed By: #### U MICAO, UAX #### [facility] [address] [place] [address] Skoog Operator: Ziggy Hilario MD Albumin/Glob Ratio 1.8 Normal 1.0-2.5 [facility] Comment on above: Performed By: #### U MICAO, UAX #### [facility] [address] [place] [address] Skoog Operator: Ziggy Hilario MD Alkaline Phos 100 U/L Normal 40-129 [facility] Comment on above: Performed By: #### U MICAO, UAX #### [facility] [address] [place] [address] Skoog Operator: Ziggy Hilario MD ALT [Catalytic activity/Vol] 37 U/L Normal 10-50 [facility] Comment on above: Performed By: #### U MICAO, UAX #### [facility] [address] [place], [place] [address] Skoog Operator: Ziggy Hilario MD Anion gap [Moles/Vol] 12 mmol/L Normal 9-16 [facility] Comment on above: Performed By: #### U MICAO, UAX #### [facility] [address] [place], [place] [address] Skoog Operator: Ziggy Hilario MD AST [Catalytic activity/Vol] 29 U/L Normal 10-50 [facility] Comment on above: Performed By: #### U MICAO, UAX #### [facility] [address] [place], [place] [address] Skoog Operator: Ziggy Hilario MD Bilirubin [Mass/Vol] 0.3 mg/dL Normal 0.00-1.20 [facility] Comment on above: Performed By: #### U CASSYO, UAX #### [facility] [address] [place], [place] [address] Skoog Operator: Ziggy Hilario MD BUN/CRE Ratio 9 Normal 9-20 [facility] Comment on above: Performed By: #### U CASSYO, UAX #### [facility] [address] [place] [address] [place], [place] [address] Skoog Operator: Ziggy Hilario MD Calcium [Mass/Vol] 10.1 mg/dL Normal 8.6-10.4 [facility] Comment on above: Performed By: #### U MICAO, UAX #### [facility] [address] [place] [address] Skoog Operator: Ziggy Hilario MD Chloride [Moles/Vol] 100 mmol/L Normal 98-107 [facility] Comment on above: Performed By: #### U MICAO, UAX #### [facility] [address] [place] [address] Skoog Operator: Ziggy Hilario MD CO2 [Moles/Vol] 26 mmol/L Normal 20-31 [facility] Comment on above: Performed By: #### U MICAO, UAX #### [facility] [address] [place] [address] Skoog Operator: Ziggy Hilario MD Creatinine [Mass/Vol] 1.1 mg/dL Normal 0.70-1.20 [facility] Comment on above: Performed By: #### U REBEKA UAX #### [facility] [address] [place] [address] Skoog Operator: Ziggy Hilario MD GFR/1.73 sq M.predicted among non-blacks MDRD (S/P/Bld) [Vol rate/Area] 76 mL/min/{1.73_m2} Normal >60 [facility] Comment on above: Result Comment: These [...] affects renal tubular secretion. Performed By: #### Fantasma STALEY UAX #### [facility] [address] [place] [address] Skoog Operator: Ziggy Hilario MD Glucose [Mass/Vol] 100 mg/dL High 74-99 [facility] Comment on above: Performed By: #### U REBEKA UAX #### [facility] [address] [place] [address] Skoog Operator: Ziggy Hilario MD Potassium [Moles/Vol] 4.1 mmol/L Normal 3.7-5.3 [facility] Comment on above: Performed By: #### U CASSYO, UAX #### [facility] [address] [place] [address] Skoog Operator: Ziggy Hilario MD Protein [Mass/Vol] 7.0 g/dL Normal 6.6-8.7 [facility] Comment on above: Performed By: #### U MICAO, UAX #### [facility] [address] [place] [address] Skoog Operator: Ziggy Hilario MD Sodium [Moles/Vol] 138 mmol/L Normal 136-145 [facility] Comment on above: Performed By: #### U MICAO, UAX #### [facility] [address] [place] [address] Skoog Operator: Ziggy Hilario MD Urea nitrogen [Mass/Vol] 10 mg/dL Normal 6-20 [facility] Comment on above: Performed By: #### U MICAO, UAX #### [facility] [address] [place] [address] Skoog Operator: Ziggy Hilario MD [facility] Metabolic [facility] 08-05-2024 Albumin [Mass/Vol] 4.5 g/dL 3.5 - 5.2 g/dL [facility] Albumin/Globulin [Mass ratio] 1.8 {ratio} 1.0 - 2.5 [facility] ALP [Catalytic activity/Vol] 100 U/L 40 - 129 U/L [facility] ALT [Catalytic activity/Vol] 37 U/L 10 - 50 U/L [facility] Anion gap [Moles/Vol] 12 mmol/L 9 - 16 mmol/L [facility] AST [Catalytic activity/Vol] 29 U/L 10 - 50 U/L [facility] Bilirubin [Mass/Vol] 0.3 mg/dL 0.00 - 1.20 mg/dL [facility] Calcium [Mass/Vol] 10.1 mg/dL 8.6 - 10. 4 mg/dL [facility] Chloride [Moles/Vol] 100 mmol/L 98 - 10 7 mmol/L [facility] CO2 [Moles/Vol] 26 mmol/L 20 - 31 mmol/L [facility] Creatinine [Mass/Vol] 1.1 mg/dL 0.70 - 1.20 mg/dL [facility] Yoon Barron Filt Rate 76 - PINF [facility] Comment on above: These results are not [...] mg/dL High 74 - 99 mg/dL [facility] Potassium [Moles/Vol] 4.1 mmol/L 3.7 - 5.3 mmol/L [facility] Protein [Mass/Vol] 7.0 g/dL 6.6 - 8.7 g/dL [facility] Sodium [Moles/Vol] 138 mmol/L 136 - 145 mmol/L [facility] Urea nitrogen [Mass/Vol] 10 mg/dL 6 - 20 mg/dL [facility] Urea nitrogen/Creatinine [Mass ratio] 9 mg/mg 9 - 20 [facility] Lactic Acidon 08-05-2024 Lactate (BldV) [Moles/Vol] 1.2 mmol/L 0.5 - 2.2 mmol/L [facility] Lactate [Moles/Vol] 1.2 mmol/L Normal 0.5-2.2 [facility] Comment on above: Performed By: #### U LAUREL STALEY #### [facility] [address] [place] [address] Skoog Operator: Ziggy Hilario MD Lipaseon 08-05-2024 Lipase [Catalytic activity/Vol] 101 U/L High 13 - 60 U/L [facility] Lipase [Catalytic activity/Vol] 101 U/L High 13-60 [facility] Comment on above: Performed By: #### U MICAO, UAX #### [facility] [address] [place] [address] Skoog Operator: Ziggy Hilario MD No Panel Informationon 08-05 Interpretation and review of laboratory results Abnormal [facility] CNPNon 07-30-2024 CNPN Normal [facility] ANES POSTPROC EVALon 024 ANES POSTPROC EVAL Normal [facility] ANES PRE-OPon 07-28-2024 ANES PRE-OP Normal [facility] EGD Study observation Narrat iveon 07-28-2024 [facility] Radiology Study observation (narrative) [facility] GLUCOSE, BLOOD (POC)on 07-28 Glucose [Mass/Vol] 101 mg/dL Abnormal 74 - 99 mg/dL [facility] Comment on above: Location:[place] [address] The Accu-Chek Inform II glucose meter has [...] Interpretation and review of laboratory results Abnormal [facility] Glucose [Mass/Vol] 110 mg/dL Abnormal 74 - 99 mg/dL [facility] Comment on above: Location:[address], [facility] The Accu-Chek Inform II glucose meter has [...] Interpretation and review of laboratory results Abnormal [facility] NURSING PROGon 07-28-2024 NURSING PROG Normal [facility] NURSING PROG Normal [facility] Upper EUSon 07-28-2024 Upper EUS Normal [facility] CNPNon 07-24-2024 CNPN Normal [facility] CNOVon 07-22-2024 CNOV Normal [facility] Cancer Ag19-9 SerPl-aCncon 1 Cancer Ag 19-9 Qn 4.0 [arb'U]/mL Normal <36.0 [facility] Comment on above: Order Comment: Speci men Type: BLOOD SPECIMENOrdering Facility: [facility] Address: [address] [place] [address] Result Comment: [facility] er antigen 19-9 test is used as an aid in monitoring response to treatment or recurrence in patients with established pancreatic, hepatobiliary, or gastrointestinal malignancies. Clinical correlation is required.The CA 19-9 Antigen test was performed using the Manny [place] Un[employer] DXI paramagnetic particle chemiluminescent immunoassay method. Results obtained with different assay methods or kits cannot be used interchangeably. Performed By: #### 2 4108-3 ####[facility] LABCLIA [id number] [place] [address] [place] PANC ELASTASE, FECALon 07-22 ELASTASE INTERPRETATION Severe Exocrine Pancreatic Insufficiency Abnormal Normal [facility] Comment on above: Order Comment: Speci men Type: STOOL SPECIMENOrdering Facility: [facility] Address: [address] [place] [address] Performed By: #### P ANCEF ####[facility] LABCL[facility] [id number] [place] [address] [place] ELASTASE-1 CONCENTRATION 86 ug/g Low >=200 [facility] Comment on above: Order Comment: Speci men Type: STOOL SPECIMENOrdering Facility: [facility] Address: [address] [facility] [address] Result Comment: Inte rpretation:<100 ug/g: Severe Exocrine Pancreatic Wzrsebngjloiz830-097 ug/g: Mild to Moderate Exocrine Pancreatic Insufficiency>=200 ug/g: Normal Performed By: #### P ANCEF ####[facility] LABCLIA [id number] [address] [place] [address] [place] CNPNon 07-21-2024 CNPN Normal [facility] CNCOon 07-17-2024 CNCO Letter Text Normal [facility] CNPNon 07-17-2024 CNPN Normal [facility] B12/Folate Panelon Cobalamin (Vitamin B12) [Mass/Vol] 979 pg/mL Normal 232-1245 [facility] Comment on above: Performed By: #### B 12FOL #### [facility] [employer] [address] [place] [address] Skoog Operator: Reno Duron MD Folic Acid >20.0 Normal 4.8-24.2 [facility] Comment on above: Performed By: #### B 12FOL #### [facility] [address] [place] [address] Skoog Operator: Reno Duron MD Iron Binding Cap.on 07-15-20 24 % Fe Saturation 19 % Low 20-55 [facility] Comment on above: Performed By: #### Chantell RÍOS LDLDIR #### [facility] [address] [place] [address] Skoog Operator: Reno Duron MD Iron [Mass/Vol] 68 ug/dL Normal 61-157 [facility] Comment on above: Performed By: #### Chantell RÍOS LDLDIR #### [facility] [address] [place] [address] Skoog Operator: Reno Duron MD Total Fe Binding Cap 351 ug/dL Normal 250-450 [facility] Comment on above: Performed By: #### Chantell RÍOS LDLDIR #### [employer] [address] [place] [address] [id number] Skoog Operator: Reno Duron MD Unbound Fe Bind Cap 283 ug/dL Normal 112-347 [facility] Comment on above: Performed By: #### T KHUSHBU LDLDIR #### [facility] [address] [place], [place] [id number] Skoog Operator: Reno Duron MD PSA, Screeningon 07-15-2024 Prostatic Spec. Ag 1.80 ng/mL Normal 0.00-4.00 [facility] Comment on above: Result Comment: The Pharminex ECLIA assay is used. Results obtained with different assay methods cannot be used interchangeably. Performed By: #### U LAUREL STALEY #### [facility] [address] [place] [address] Skoog Operator: Ziggy Hilario MD Vitamin D 25 OHon 07-15-2024 Vitamin D 25 [place] >120.0 High 30.0-100.0 [facility] Comment on above: Result Comment: Reference Range: Vitamin D status Range Deficiency <20 ng/mL Mild Deficiency 20-30 ng/mL Sufficiency 30-100 ng/mL Toxicity >100 ng/mL Performed By: #### Chantell RÍOS LDLDIR #### [facility] [address] [place] [address] Skoog Operator: Reno Duron MD TSH With Reflex [id number] TSH Qn 0.85 m[IU]/L [facility] TSH w/reflex to FT4on 2023 Thyroid Stim. Horm. 0.85 uIU/mL Normal 0.27-4.20 [facility] Comment on above: Performed By: #### T KHUSHBU LDLALISHAR #### [facility] [address] [place], [place] [id number] Skoog Operator: Reno Duron MD 36on 07-08-2024 36 Pt [...] to call him with results please advise [facility] 36 Upon learning that p t follows with Dr. Davies for GI care, I called and informed him that Dr. Davies (who ordered the tests) is the one to go over the results with him. Pt indicated understanding and said he would call Dr. Davies immediately. [facility] 36 Patient called back looking for an update. I did inform patient that it does look like we just recently received results. Patient would like the doctor to call him with results from the biopsy. Please advise. [facility] Telephoneon 07-08-2024 Telephone [id number] Alin Light 1970 M Date Provider Department Center 07/08/2024 [facility] No family history on file [facility] 36on 07-03-[address] Aponte, This patient is very anxious to speak to you. Can I tell him when he can expect to hear from you? Ana Maria [facility] 36 Pt called in again regarding lab [...] can be done to help with that [facility] 36 Patient called to go over test results. Patient was informed that test results haven't come in yet and the doctor needs to review them once the results are in. Patient would like a call once the results are in. [facility] 36 Pt called in again i s very concerned and worried about biopsy results and would like to know if they are in . Advised pt they are still in process. Pt would like a call back as soon as possible [facility] 36on 07-02-2024 36 Patient called in, i s requesting a call to go over biopsy results once they've been reviewed. Confirmed patients phone number on file. Normal [facility] Telephoneon 07-02-2024 Telephone [phone] Alin Light 1970 M Date Provider Department Center 07/02/2024 Mark Anthony-LUIS F APONTE [facility] GI [facility] No family history on file Normal [facility] HISTOLOGY - TISSUE EXAMon LAB AP CASE REPORT Normal [facility] Comment on above: Result Comment: Surg ical Pathology Case: [id number] Authorizing Provider: Luis F Aponte MD Collected: 06/26/2024 1554 Ordering Location: [facility] Received: 06/27/2024 0811 [facility] Pathologist: Maritza Box MD Specimens: A) - Small Intestine, Duodenum, duodenal bx r/o celiac B) - Distal Esophagus, distal esophagus 35 bx r/o dysplagia C) - Distal Esophagus, distal esophageal bx 33 r/o dysplagia Performed By: #### L [id number] ####[facility] (BEAKER)[address] [place] [address] LAB AP CLINICAL INFORMATION Order Diagnoses Normal [facility] Comment on above: Result Comment: K86. 2 - Pancreatic cyst [ICD-10-CM] R93.5 - Abnormal CT of the abdomen [ICD-10-CM] Performed By: #### L [id number] ####[facility] (BEAKER)[address] [place] [address] LAB AP GROSS DESCRIPTION Normal [facility] Comment on above: Result Comment: A. S mall Intestine, Duodenum. Received in formalin labeled Alin Herrerabrook, duodenal bx r/o celiac, are 5 pieces of clemente-pink, irregular mucosal tissue ranging from 0.2 cm to 0.4 cm in greatest dimension. The specimen is submitted in toto in 1 cassette. Jordan Styles, Pathologists' Compliance Attorney Student B. Distal Esophagus. Received in formalin labeled Alin Herrerabrook, distal esophagus 35 bx r/o dysplagia, are 3 pieces of clemente-pink, irregular mucosal tissue ranging from 0.2 cm to 0.4 cm in greatest dimension. The specimen is submitted in toto in 1 cassette. Jordan Styles, Pathologists' Compliance Attorney Student CSurya Distal Esophagus. Received in formalin labeled Alin Light, distal esophageal bx 33 r/o dysplagia, are 2 pieces of clemente-pink, irregular mucosal tissue each measuring 0.3 cm in greatest dimension. The specimen is submitted in toto in 1 cassette. Sukumar Flynn' Compliance Attorney Student Performed By: #### L [id number] ####[facility] ([facility])[address] [facility] [place] [address] LAB AP MICROSCOPIC DESCRIPTION Microscopic examination performed. [facility] Comment on above: Performed By: #### L [id number] ####[facility] ([facility])[address] [place] [address] LAB AP REPORT FINAL DIAGNOSIS NARRATIVE [facility] Comment on above: Result Comment: [...] or malignancy identified Performed By: #### L [id number] ####[facility] ([facility])[address] [place] [address] HPon 06-26-2024 History Of Present Illness Alin [...] endoscopic ultrasound to assess the pancreas. Normal [facility] NON-RETAIL PRICING COORDINATOR CYTOLOGY - CELLULAR EXAMon 06-26-2024 LAB AP CASE REPORT Normal [facility] Comment on above: Result Comment: Non- gynecologic Cytology Case: [id number] Authorizing Provider: Luis F Aponte MD Collected: 06/26/2024 1624 Ordering Location: [facility] Received: 06/27/2024 0910 [facility] Endoscopy Pathologist: Kalpana Ventura MD Specimen: Pancreas, Tail, pancreatic tail FNA Performed By: #### L [id number] ####[facility] ([facility])[address] [place] [place] [address] LAB AP CLINICAL INFORMATION Order Diagnoses [facility] Comment on above: Result Comment: K86. 2 - Pancreatic cyst [ICD-10-CM] R93.5 - Abnormal CT of the abdomen [ICD-10-CM] Performed By: #### L AB13 ####[facility] ([facility])[address] [place] [place] [address] LAB AP DIAGNOSIS COMMENT Normal [facility] Comment on above: Result Comment: A. T he specimen is scantly cellular. While no evidence of high grade dysplasia is identified, very few groups of cyst lining epithelium are present in the sample for evaluation. In addition, cyst fluid chemistries could not be performed. Clinical and endoscopic correlation is suggested. Performed By: #### L [id number] ####[facility] ([facility])[address] [place] [address] LAB AP GROSS DESCRIPTION 6 air-dried slides, 3 alcohol-fixed slides, 30 mL CytoLyt with clear, colorless fluid. [facility] Comment on above: Performed By: #### L [id number] ####[facility] ([facility])[address] [place] [address] LAB AP INTRAOPERATIVE CONSULTATION [facility] Comment on above: Result Comment: Catracho Carvajal. Rapid on-site evaluation was performed by Kalpana Ventura MD. The material examined during rapid on-site evaluation was deemed adequate for diagnosis. Pass #1: Adequate Pass #2: Adequate Pass #3: Defer *Only select material is examined during the on-site evaluation. Final diagnosis is pending the review of all material submitted.* Performed By: #### L AB13 ####[facility] ([facility])[address] [place] [address] LAB AP REPORT FINAL DIAGNOSIS NARRATIVE Normal [facility] Comment on above: Result Comment: Angelika crowell, tail, EUS-guided fine needle aspiration: - Neoplastic mucinous cyst, favor an intraductal papillary mucinous neoplasm (IPMN). - No high grade dysplasia identified. - See comment. Performed By: #### L [id number] ####[facility] ([facility])[address] [place] [address] POCT GLUCOSE METER UNSOLICIT ED RESULTSon 06-26-2024 Glucose [Mass/Vol] 86 mg/dL Normal 70-105 [facility] Comment on above: Order Comment: Waive d Testing in the ED is performed under the ED CLIA certificate #[id number]. Result Comment: jenc k2 Performed By: #### L [id number] ####[facility] ([facility])[address] [place] [address] Prep for Procedureon 024 Prep for Procedure [id number] Alin Light 1970 M Date Provider Department Center 06/26/2024 [facility] PREOP [facility] Medical C No family history on file [facility] Telephoneon 06-10-2024 Telephone [id number] Alin Light 1970 M Date Provider Department Center 06/10/2024 RM [facility] No family history on file [facility] Telephoneon 05-30-2024 Telephone [phone] Alin Light 1970 M Date Provider Department [place] 05/30/2024 RM [facility] No family history on file [facility] BASIC METABOLIC PANLon 05-24 Anion gap [Moles/Vol] 11 mmol/L Normal 5-15 [facility] Comment on above: Performed By: #### 7 18-7, PLTCT, 43759-4, 65433-6, BMP, 3040- 3, LIVR, 76705-7 #### [facility] ([id number]) [address], [address] [place] [address] Calcium [Mass/Vol] 9.0 mg/dL Normal 8.5-10.5 [facility] Comment on above: Performed By: #### 7 18-7, PLTCT, 38117-3, 46386-6, BMP, 3040- 3, LIVR, 76325-9 #### [facility] ([id number]) [address], [address] [place] [address] Chloride [Moles/Vol] 106 mmol/L Normal 98-109 [facility] Comment on above: Performed By: #### 7 18-7, PLTCT, 67589-4, 73516-6, BMP, 3040- 3, LIVR, #### [facility] ([id number]) [address], [address] [place] [address] CO2 [Moles/Vol] 25 mmol/L Normal 22-32 [facility] Comment on above: Performed By: #### 7 18-7, PLTCT, 48823-3, 15208-8, BMP, 3040- 3, LIVR, 64083-5 #### [facility] ([id number]) [address], [address] [place] [address] Creatinine [Mass/Vol] 1.23 mg/dL Normal 0.60-1.30 [facility] Comment on above: Result Comment: METH OD TRACEABLE TO IDMS STANDARD Performed By: #### 7 18-7, PLTCT, 98944-3, 74568-4, BMP, 3040-3, LIVR, 18394-4 #### [facility] ([id number]) [address] [place] [address] GFR/1.73 sq M.predicted among non-blacks MDRD (S/P/Bld) [Vol rate/Area] 70 mL/min/{1.73_m2} Normal >59 [facility] Comment on above: Result Comment: Reported eGFR is based on the CKD-EPI 2020 equation that does not use a race coefficient. Performed By: #### 7 18-7, PLTCT, 12296-1, 99398-9, BMP, 3040-3, LIVR, 91781-9 #### [facility] ([id number]) [address], [address] [place] [address] Glucose [Mass/Vol] 114 mg/dL High 65-99 [facility] Comment on above: Performed By: #### 7 18-7, PLTCT, 56745-6, 22545-9, BMP, 3040- 3, LIVR, 82933-4 #### [facility] ([id number]) [address], [address] [place] [address] Potassium [Moles/Vol] 3.6 mmol/L Normal 3.5-5.0 [facility] Comment on above: Performed By: #### 7 18-7, PLTCT, 79239-9, 40666-8, BMP, 3040- 3, LIVR, 45821-1 #### [facility] ([id number]) [address], [address] [place] [address] Sodium [Moles/Vol] 142 mmol/L Normal 134-146 [facility] Comment on above: Performed By: #### 7 18-7, PLTCT, 11231-5, 93078-8, BMP, 3040- 3, LIVR, 72874-8 #### [facility] ([id number]) [address], [address] [place] [address] Urea nitrogen [Mass/Vol] 15 mg/dL Normal 5-23 [facility] Comment on above: Performed By: #### 7 18-7, PLTCT, 57472-2, 72130-2, BMP, 3040- 3, LIVR, 41861-4 #### [facility] ([id number]) [address], [address] [place] [address] CBC AND AUTO DIFFon 05-24-20 24 ABSOLUTE BASOPHIL 0.0 X10E9/L Normal 0.0-0.2 [facility] Comment on above: Performed By: #### 8 9579-7, CBCA #### [facility] ([id number]) [address], [address] [place] [address] ABSOLUTE NEUTROPHIL 4.2 X10E9/L Normal 1.5-6.6 [facility] Comment on above: Performed By: #### 8 9579-7, CBCA #### [facility] ([id number]) [address], [address] [place] [address] Basophils/100 WBC (Bld) 0.4 % Normal [facility] Comment on above: Performed By: #### 8 9579-7, CBCA #### [facility] ([id number]) [address], [address] [place] [address] Eosinophils (Bld) [#/Vol] 0.1 10*3/uL Normal 0.0-0.4 [facility] Comment on above: Performed By: #### 8 9579-7, CBCA #### [facility] ([id number]) [address], [address] [place] [address] Eosinophils/100 WBC (Bld) 1.1 % Normal [facility] Comment on above: Performed By: #### 8 9579-7, CBCA #### [facility] ([id number]) [address], [address] [place] [address] Erythrocyte distribution width (RBC) [Ratio] 12.5 % Normal 11.5-15.0 [facility] Comment on above: Performed By: #### 8 9579-7, CBCA #### [facility] ([id number]) [address], [address] [place] [address] Hematocrit (Bld) [Volume fraction] 36.9 % Low 39-49 [facility] Comment on above: Performed By: #### 8 9579-7, CBCA #### [facility] ([id number]) [address], [address] [place] [address] Hemoglobin (Bld) [Mass/Vol] 12.6 g/dL Low 13.0-17.0 [facility] Comment on above: Performed By: #### 8 9579-7, CBCA #### [facility] ([id number]) [address], [facility] [address] [place] [address] Lymphocytes (Bld) [#/Vol] 2.6 10*3/uL Normal 1.0-3.5 [facility] Comment on above: Performed By: #### 8 9579-7, CBCA #### [facility] ([id number]) [address], [address] [place] [address] Lymphocytes/100 WBC (Bld) 34.5 % Normal [facility] Comment on above: Performed By: #### 8 9579-7, CBCA #### [facility] ([id number]) [address], [address] [place] [address] MCH (RBC) [Entitic mass] 28.9 pg Normal 27-34 [facility] Comment on above: Performed By: #### 8 9579-7, CBCA #### [facility] ([id number]) [address], [address] [place] [address] MCHC (RBC) [Mass/Vol] 34.2 g/dL Normal 32-36 [facility] Comment on above: Performed By: #### 8 9579-7, CBCA #### [facility] ([id number]) [address], [address] [place] [address] MCV (RBC) [Entitic vol] 85 fL Normal 80-100 [facility] Comment on above: Performed By: #### 8 9579-7, CBCA #### [facility] ([id number]) [address], [address] [place] [address] Monocytes (Bld) [#/Vol] 0.7 10*3/uL Normal 0-0.9 [facility] Comment on above: Performed By: #### 8 9579-7, CBCA #### [facility] ([id number]) [address], [facility] [address] [place] [address] Monocytes/100 WBC (Bld) 9.4 % Normal [facility] [facility] Comment on above: Performed By: #### 8 9579-7, CBCA #### [facility] ([id number]) [address], [address] [place] [address] Neutrophils/100 WBC (Bld) 54.6 % Normal [facility] Comment on above: Performed By: #### 8 9579-7, CBCA #### [facility] ([id number]) [address] [place] [address] Platelet mean volume (Bld) [Entitic vol] 8.8 fL Normal 7-12 [facility] Comment on above: Performed By: #### 8 9579-7, CBCA #### [facility] ([id number]) [address] [place] [address] Platelets (Bld) [#/Vol] 216 10*3/uL Normal 150-450 [facility] Comment on above: Performed By: #### 8 9579-7, CBCA #### [facility] ([id number]) [address], [address] [place] [address] RBC COUNT 4.36 X10E12/L Normal 4.10-5.70 [facility] Comment on above: Performed By: #### 8 9579-7, CBCA #### [facility] ([id number]) [address] [place] [address] WBC (Bld) [#/Vol] 7.7 10*3/uL Normal 4.0-11.0 [facility] Comment on above: Performed By: #### 8 9579-7, CBCA #### [facility] ([id number]) [address], [address] [place] [address] ED Clinical Summaryon 2023 ED Clinical Summary (Inserted Image. Mariajose ble to display) [address] [address] ED Clinical Summary Person Information Name: Alin Light/[facility] Age: 53 Years : 1970 Sex: Male PCP: Eliana Morales Marital Status: Phone: Race: White Ethnicity: Not or Language: Mosotho Visit Reason: Abdominal pain; abdominal pain Acuity: 3 Enc Type: Emergency Med Service: Emergency Medicine Arrival: 05/23/2024 16:46:05 Discharge: 05/24/2024 02:20:00 LOS: 000 09:34 Checkin: 05/23/2024 16:46:05 Checkout: 05/24/2024 02:20:00 Dispo Type: Transfer to Acute Care Hospital Address: [address] [place] [id number] Provider Notes: History of Present Illness Patient [...] range between ( 27.2 and 40.8 ) Hall Auto: 7.6 % -- Normal range between [...] range between ( 41.0 and 53.0 ) Hall Absolute: 0.7 x10 MCH: 29.0 pg -- [...] 8.1 ) (more content not included)... Normal [facility] ED Note-Nursingon 05-24-2024 ED Note-Nursing this RN called repor t to [facility]. care transferred via phone to Fatoumata and all her questions answered. pt going to room B759 Lisa Pittman Normal [facility] Glucose Glucometer (BldC) [M ass/Vol]on 05-24-2024 Glucose [Mass/Vol] 108 mg/dL High 65-99 [facility] Glucose [Mass/Vol] 115 mg/dL High 65-99 [facility] HEMOGLOBINon 05-24-2024 Hemoglobin (Bld) [Mass/Vol] 12.1 g/dL Low 13.0-17.0 [facility] Comment on above: Performed By: #### 7 18-7, PLTCT, 89581-7, 65361-4, BMP, 3040- 3, LIVR, 31740-8 #### [facility] ([id number]) [address] [place] [address] LIPASEon 05-24-2024 Lipase [Catalytic activity/Vol] 63 U/L Normal 11-82 [facility] Comment on above: Performed By: #### 7 18-7, PLTCT, 06363-2, 84406-9, BMP, 3040- 3, LIVR, 79399-9 #### [facility] ([id number]) [address], [address] [place] [address] LIVER PANELon 05-24-2024 Albumin [Mass/Vol] 3.8 g/dL Normal 3.2-5.3 [facility] Comment on above: Performed By: #### 7 18-7, PLTCT, 97467-4, 72889-6, BMP, 3040- 3, LIVR, 09065-9 #### [facility] ([id number]) [address], [address] [place] [address] ALP [Catalytic activity/Vol] 74 U/L Normal 39-130 [facility] Comment on above: Performed By: #### 7 18-7, PLTCT, 07004-5, 01370-9, BMP, 3040- 3, LIVR, 87958-6 #### [facility] ([id number]) [address], [address] [place] [address] ALT [Catalytic activity/Vol] 30 U/L Normal 0-40 [facility] Comment on above: Performed By: #### 7 18-7, PLTCT, 61099-0, 88757-0, BMP, 3040- 3, LIVR, 08065-4 #### [facility] ([id number]) [address], [address] [place] [address] AST [Catalytic activity/Vol] 21 U/L Normal 0-41 [facility] Comment on above: Performed By: #### 7 18-7, PLTCT, 58862-4, 92217-3, BMP, 3040- 3, LIVR, 34040-7 #### [facility] ([id number]) [address], [address] [place] [address] Bilirubin [Mass/Vol] 0.3 mg/dL Normal 0.3-1.2 [facility] Comment on above: Performed By: #### 7 18-7, PLTCT, 84643-2, 64061-9, BMP, 3040- 3, LIVR, 55660-7 #### [facility] ([id number]) [address], [address] [place] [address] Bilirubin.direct [Mass/Vol] 0.0 mg/dL Normal 0.0-0.4 [facility] Comment on above: Performed By: #### 7 18-7, PLTCT, 07859-6, 67269-4, BMP, 3040- 3, LIVR, 54834-9 #### [facility] ([id number]) [address], [address] [place] [address] Protein [Mass/Vol] 6.0 g/dL Normal 6.0-8.0 [facility] Comment on above: Performed By: #### 7 18-7, PLTCT, 71709-6, 85786-1, BMP, 3040- 3, LIVR, 34962-3 #### [facility] ([id number]) [address], [address] [place] [address] MAGNESIUMon 05-24-2024 Magnesium [Mass/Vol] 1.8 mg/dL Normal 1.8-2.6 [facility] Comment on above: Performed By: #### 7 18-7, PLTCT, 85373-0, 56234-5, BMP, 3040- 3, LIVR, 70929-1 #### [facility] ([id number]) [address], [address] [place] [address] PLATELET COUNT AND MPVon Platelet mean volume (Bld) [Entitic vol] 7.7 fL Normal 7-12 [facility] Comment on above: Performed By: #### 7 18-7, PLTCT, 54679-5, 59650-5, BMP, 3040- 3, LIVR, 46825-9 #### [facility] ([id number]) [address], [address] [place] [address] Platelets (Bld) [#/Vol] 222 10*3/uL Normal 150-450 [facility] Comment on above: Performed By: #### 7 18-7, PLTCT, 90549-4, 31655-2, BMP, 3040- 3, LIVR, 86083-6 #### [facility] ([id number]) [address], [address] [place] [address] Troponin I.cardiac High sens itivity method [Mass/Vol]on 08-03-2024 1 HOUR TROP I, HIGH SENSITIVITY 4 ng/L Normal <21 [facility] Comment on above: Performed By: #### 8 9579-7, CBCA #### [facility] ([id number]) [address] [place] [address] TROPONIN I, HIGH SENSITIVITY 3 ng/L Normal <21 [facility] Comment on above: Performed By: #### 7 18-7, PLTCT, 95623-4, 34195-8, BMP, 3040- 3, LIVR, 98255-0 #### [facility] ([id number]) [address] [place] [address] aPTT Coag (PPP) [Time]on aPTT Coag (Bld) [Time] 34 s Normal 26-37 [facility] Comment on above: Performed By: #### 7 18-7, PLTCT, 06703-8, 92213-7, BMP, 3040- 3, LIVR, 60695-5 #### [facility] ([id number]) [address] [place] [address] .UA Microscp Aon 05-23-2024 UA RBC Quant 0 /HPF Normal 0-5 [facility] Comment on above: Performed By: #### C OMP #### [address] [address] UA WBC Quant 0 /HPF Normal 0-5 [facility] Comment on above: Performed By: #### C OMP #### [address] [address] .eGFRon 05-23-2024 GFR/1.73 sq M.predicted MDRD (S/P/Bld) [Vol rate/Area] mL/min/{1.73_m2} Normal >=60 [facility] Comment on above: Result Comment: [facility] have implemented the eGFR calculation [...] Performed By: #### C OMP #### [address] [address] CBC w/ Diffon 05-23-2024 Erythrocyte distribution width (RBC) [Ratio] 12.4 % Normal 11.6-14.8 [facility] Comment on above: Performed By: #### C BC #### [address] [address] Hematocrit (Bld) [Volume fraction] 39.5 % Low 41.0-53.0 [facility] Comment on above: Performed By: #### C BC #### [address] [address] Hemoglobin (Bld) [Mass/Vol] 13.5 g/dL Normal 13.5-17.5 [facility] Comment on above: Performed By: #### C BC #### [address] [address] MCH (RBC) [Entitic mass] 29.0 pg Normal 27.0-35.0 [facility] Comment on above: Performed By: #### C BC #### [address] [address] MCHC 34.1 % Normal 31.0-37.0 [facility] Comment on above: Performed By: #### C BC #### [address] [address] MCV (RBC) [Entitic vol] 85.0 fL Normal 80.0-100.0 [facility] Comment on above: Performed By: #### C BC #### [address] [address] Platelet 265 x10*3/mcL Normal 150-450 [facility] Comment on above: Performed By: #### C BC #### [address] [address] Platelet mean volume (Bld) [Entitic vol] 7.4 fL Normal 6.7-10.6 [facility] Comment on above: Performed By: #### C BC #### [address] [address] RBC 4.65 x10*6/mcL Normal 4.30-5.80 [facility] Comment on above: Performed By: #### C BC #### [address] [address] WBC 9.4 x10*3/mcL Normal 4.5-11.0 [facility] Comment on above: Performed By: #### C BC #### [address] [address] CMPon 05-23-2024 Albumin [Mass/Vol] 4.5 g/dL Normal 3.2-4.9 [facility] Comment on above: Performed By: #### C OMP #### [address] [address] Albumin/Globulin [Mass ratio] 1.7 {ratio} Normal 1.1-2.2 [facility] Comment on above: Performed By: #### C OMP #### [address] [address] Alk Phos 80 IU/L Normal 32-91 [facility] Comment on above: Performed By: #### C OMP #### [address] [address] ALT [Catalytic activity/Vol] 41 U/L Normal 17-63 [facility] Comment on above: Performed By: #### C OMP #### [address] [address] Anion gap [Moles/Vol] 11 mmol/L Normal 4-12 [facility] Comment on above: Performed By: #### C OMP #### [address] [address] AST [Catalytic activity/Vol] 32 U/L Normal 15-41 [facility] Comment on above: Performed By: #### C OMP #### [address] [address] Bili Total 0.6 mg/dL Normal 0.3-1.2 [facility] Comment on above: Performed By: #### C OMP #### [address] [address] Calcium [Mass/Vol] 9.5 mg/dL Normal 8.5-10.3 [facility] Comment on above: Performed By: #### C OMP #### [address] [address] Chloride [Moles/Vol] 100 mmol/L Normal 98-110 [facility] Comment on above: Performed By: #### C OMP #### [address] [address] CO2 [Moles/Vol] 26 mmol/L Normal 22-32 [facility] Comment on above: Performed By: #### C OMP #### [address] [address] Creatinine [Mass/Vol] 1.28 mg/dL High 0.61-1.24 [facility] Comment on above: Performed By: #### C OMP #### [address] [address] Glucose [Mass/Vol] 111 mg/dL High 70-99 [facility] Comment on above: Performed By: #### C OMP #### [address] [place] [address] Potassium [Moles/Vol] 4.0 mmol/L Normal 3.4-4.8 [facility] Comment on above: Performed By: #### C OMP #### [address] [address] Protein [Mass/Vol] 7.2 g/dL Normal 6.5-8.1 [facility] Comment on above: Performed By: #### C OMP #### [address] [address] Sodium [Moles/Vol] 137 mmol/L Normal 133-142 [facility] Comment on above: Performed By: #### C OMP #### [address] [address] Urea nitrogen [Mass/Vol] 16 mg/dL Normal 8-26 [facility] Comment on above: Performed By: #### C OMP #### [address] [address] Urea nitrogen/Creatinine [Mass ratio] 12.5 mg/mg Normal 10.0-20.0 [facility] Comment on above: Performed By: #### C OMP #### [address] [address] [address] Abdomen Pelvis w/ IV Cont [facility] 05-23-2024 CT Abdomen Pelvis w/ IV [...] Electronically Signed in Other Vendor System) Normal [facility] Diff Autoon 05-23-2024 Baso Absolute 0.0 x10*3/mcL Normal 0.0-0.2 [facility] Comment on above: Performed By: #### . Automated Diff #### [facility] [address] [place] [address] Basophils/100 WBC (Bld) 0.4 % Normal 0.0-1.2 [facility] Comment on above: Performed By: #### . Automated Diff #### [facility] [address] [place] [address] Eos Absolute 0.1 x10*3/mcL Normal 0.0-0.4 [facility] Comment on above: Performed By: #### . Automated Diff #### [facility] [address] [place] [address] Eosinophils/100 WBC (Bld) 0.8 % Normal 0.0-6.1 [facility] Comment on above: Performed By: #### . Automated Diff #### [address] [address] Lymph Absolute 2.1 x10*3/mcL Normal 1.0-4.8 [facility] Comment on above: Performed By: #### . Automated Diff #### [address] [address] Lymphocytes/100 WBC (Bld) 22.3 % Low 27.2-40.8 [facility] Comment on above: Performed By: #### . Automated Diff #### [address] [address] Hall Absolute 0.7 x10*3/mcL Normal 0.3-1.1 [facility] Comment on above: Performed By: #### . Automated Diff #### [address] [address] Monocytes/100 WBC (Bld) 7.6 % Normal 4.7-13.9 [facility] Comment on above: Performed By: #### . Automated Diff #### [address] [address] Neutro Absolute 6.5 x10*3/mcL Normal 1.8-7.7 [facility] Comment on above: Performed By: #### . Automated Diff #### [address] [address] Neutro Auto 68.9 % Normal 47.2-70.8 [facility] Comment on above: Performed By: #### . Automated Diff #### [address] [address] ED Note-Nursingon 05-23-2024 ED Note-Nursing pt. requesting water . explained to patient that he is NPO until his CT result comes back in case of surgical emergency. pt. then asked for nausea medication and pain medication. Electronically signed by Leonard Sims 05/23/24 20:[address] [facility] ED Note-Physicianon 05-23-20 ED Note-Physician Chief Complaint [...] in this document, created by the medical imaging technologist for me, accurately reflects the services I [...] _ ? NEXUS C-spine Criteria: _ ? [place] Ankle Rule: _ ? [place] Knee Rule: _ ? Wells Criteria for [...] results with patient. Plan for transfer to [facility] for ERCP. Patient was excepted at [facility], awaiting bed. Shared decision making: _ Code status: _ Assessment/Plan 1. History of pancreatitis Ordered: amitriptyline, 50 mg, Oral, Tab, HS (at bedtime), First Dose: 05/24/24 21:00:00 EDT, Dispense From Location: [facility], 05/23/24 22:15:00 EDT amLODIPine, 2.5 mg, Oral, Tab, Daily, First Dose: 05/24/24 9:00:00 EDT, Dispense From Location: [facility], 05/23/24 22:12:00 EDT atorvastatin, 40 mg, Oral, Tab, Daily, First Dose: 05/24/24 9:00:00 EDT, Dispense From Location: [facility], 05/23/24 22:15:00 EDT clonazePAM, 1 mg, Oral, Tab, HS (at bedtime), First Dose: 05/23/24 22:15:00 EDT, Dispense From Location: [facility], 05/23/24 22:15:00 EDT clonazePAM, 0.5 mg, Oral, Tab, Daily, First Dose: 05/23/24 22:15:00 EDT, Dispense From Location: [facility], 05/23/24 22:15:00 EDT pancrelipase, 6 caps, Oral, Cap-DR, TID, PRN other (see comment), First Dose: 05/23/24 22:15:00 EDT, Dispense From Location: [facility], 05/23/24 22:15:00 EDT ziprasidone, 40 mg, Oral, Cap, HS (at bedtime), First Dose: 05/23/24 22:15:00 EDT, Dispense From Location: [facility], 05/23/24 22:15:00 EDT Complete Blood Count w/ Differential Comprehensive Metabolic Panel 2. Pancreatic duct dilated Ordered: amitriptyline, 50 mg, Oral, Tab, HS (at bedtime), First Dose: 05/24/24 21:00:00 EDT, Dispense From Location: [facility], 05/23/24 22:15:00 EDT amLODIPine, 2.5 mg, Oral, Tab, Daily, First Dose: 05/24/24 9:00:00 EDT, Dispense From Location: [facility], (more content not included)... Normal [facility] Lipaseon 05-23-2024 Lipase Lvl 103 IU/L High 22-51 [facility] Comment on above: Performed By: #### C OMP #### [place] [address] UA w Culture if Indon 2023 Color (U) Yellow Normal Yellow [facility] Comment on above: Performed By: #### U CI #### [place] [address] Ketones Ql (U) Negative Normal Negative [facility] Comment on above: Performed By: #### U CI #### [place] [id number] UA Blood Negative Normal Negative [facility] Comment on above: Performed By: #### U CI #### [facility] [address] [place] [address], [place] [address] UA Clarity Clear Normal Clear [facility] Comment on above: Performed By: #### U CI #### [facility] [address] [place] [address], [place] [address] UA Glucose Normal Normal Negative [facility] Comment on above: Performed By: #### U CI #### [facility] [address] [place] [address], [place] [address] UA Leukocyte Esterase Negative Normal Negative [facility] Comment on above: Performed By: #### U CI #### [facility] [address] [place] [address], [place] [address] UA Nitrite Negative Normal Negative [facility] Comment on above: Performed By: #### U CI #### [address] [place] [address] UA pH 7.0 Normal 4.5 - 7.8 [facility] Comment on above: Performed By: #### U CI #### [facility] [address] [place] [address], [place] [address] UA Protein Negative Normal Negative [facility] Comment on above: Performed By: #### U CI #### [facility] [address] [place] [address], [place] [address] UA Source Clean Catch Normal [facility] Comment on above: Performed By: #### U CI #### [facility] [address] [place] [address], [place] [address] UA Spec Grav 1.010 Normal 1.003-1.035 [facility] Comment on above: Performed By: #### U CI #### [facility] [address] [place] [address], [place] [address] UA Urobilinogen Normal Normal 0.2 - 1.0 [facility] Comment on above: Performed By: #### U CI #### [address] [place] [address] Urobilinogen (U) [Mass/Vol] Negative Normal Negative [facility] Comment on above: Performed By: #### U CI #### [facility] [address] [place] [id number] CERVICAL SPINE W CONTRAST on 04-27-2024 [...] Marvin Byrd MD 04/27/24 Final result Normal [facility] No Panel Informationon 04-26 Left wrist: [...] above. Kyphosis of the thoracic spine. 3. Fexp-iu-pphiuaqc degenerative changes in the thoracic spine. Lumbar spine: 1. Remote vertebroplasty and compression deformity of L3. 2. No acute vertebral body height loss in the lumbar spine. [facility] RIS CONSOLIDATED EXAMINATION: 3 XRAY VIEWS OF [...] adjacent to the lateral right iliac bone. [facility] RIS CONSOLIDATED Miguel Jimenez MD - 04/26/2024 [...] above. Kyphosis of the thoracic spine. 3. Vjrc-bj-vesuviri degenerative changes in the thoracic spine. Lumbar spine: 1. Remote vertebroplasty and compression deformity of L3. 2. No acute vertebral body height loss in the lumbar spine. [facility] No Panel InformationOrdered By: Miguel Jimenez on 04-26-2024 [facility] Work Phone: XR FINGER LEFT (MIN 2 [...] above. Kyphosis of the thoracic spine. 3. Amke-sw-naejvbtq degenerative changes in the thoracic spine. Lumbar spine: 1. Remote vertebroplasty and compression deformity of L3. 2. No acute vertebral body height loss in the lumbar spine. Interpreted by: Miguel Jimenez MD Signed by: Miguel Jimenez MD 04/26/24 Final result Normal [facility] XR Finger - left 2 Viewson 0 04-26-2024 Radiology Study observation (narrative) [facility] XR LUMBAR SPINE (2-3 VIEWS)o n 04-26-2024 [...] above. Kyphosis of the thoracic spine. 3. Lnee-ke-xokuplsf degenerative changes in the thoracic spine. Lumbar spine: 1. Remote vertebroplasty and compression deformity of L3. 2. No acute vertebral body height loss in the lumbar spine. Interpreted by: Miguel Jimenez MD Signed by: Miguel Jimenez MD 04/26/24 Final result Normal [facility] XR Lumbar spine 2 or 3 Views on 04-26-2024 Radiology Study observation (narrative) [facility] XR THORACIC SPINE (2 VIEWS)o n 04-26-2024 [...] above. Kyphosis of the thoracic spine. 3. Wzaj-bi-kaqxmzwx degenerative changes in the thoracic spine. Lumbar spine: 1. Remote vertebroplasty and compression deformity of L3. 2. No acute vertebral body height loss in the lumbar spine. Interpreted by: Miguel iJmenez MD Signed by: Miguel Jimenez MD 04/26/24 Final result Normal [facility] XR Thoracic spine 2 Viewson 04-26-2024 Radiology Study observation (narrative) [facility] XR WRIST LEFT (MIN 3 VIEWS)o [...] above. Kyphosis of the thoracic spine. 3. Dbdd-sp-xwjcccut degenerative changes in the thoracic spine. Lumbar spine: 1. Remote vertebroplasty and compression deformity of L3. 2. No acute vertebral body height loss in the lumbar spine. Interpreted by: Miguel Jimenez MD Signed by: Miguel Jimenez MD 04/26/24 Final result Normal [facility] XR Wrist - left 3 Viewson Radiology Study observation (narrative) [facility] Creatinineon 04-23-2024 Creatinine [Mass/Vol] 1.1 mg/dL 0.7 - 1.2 mg/dL [facility] Est, [place] Filt Rate 80 - PINF [facility]IA Velas[facility] Comment on above: These results are [...] following therapy that affects renal tubular secretion. [facility] Creatinine w/GFRon Creatinine [Mass/Vol] 1.1 mg/dL Normal 0.7-1.2 [facility] Comment on above: Performed By: #### NIKKIE DOLLR #### [facility] [address] [place] [address] Skoog Operator: Reno Duron MD GFR/1.73 sq M.predicted among non-blacks MDRD (S/P/Bld) [Vol rate/Area] 80 mL/min/{1.73_m2} Normal >60 [facility] Comment on above: Result Comment: These [...] Performed By: #### Chantell RÍOS LDLDIR #### [facility] [address] [place] [address] Skoog Operator: Reno Duron MD XR TOE LEFT (MIN [...] Ernie Gutiérrez MD 04/03/24 Final result Normal [facility] XR TOE LEFT (MIN 2 VIEWS)on [...] Ernie Gutiérrez MD 04/02/24 Final result Normal [facility] Benzodiazepines Screen Ql (U )on 03-26-2024 Benzodiazepines Ql (U) Negative Normal NEG [facility] Comment on above: Result Comment: Leon odiazepines screening cut off value = 200 ng/mL This report is intended for use in clinical monitoring or management of patients. Performed By: #### 1 4316-4 #### [facility] ([id number]) [address] [facility], [address] [place] [address] CCL GENERIC ORDERon 03-26-20 TEST NAME [id number] Normal [facility] Comment on above: Performed By: #### C GO #### [facility] ([id number]) [address] [place] [id number] TEST RESULT See Below Normal [facility] Comment on above: Result Comment: NOTE [...] carboxylic acid (THCA) is a metabolite of idzve-6-zshnnwwmguzxnrwyspkc which is the main active component of marijuana. Fentanyl, Urine <6 ng/mL <6 Buprenorphine, Ur <20 ng/mL <20 Methadone Urine <16 ng/mL <16 Methadone metabolite Urine <6 ng/mL <6 EDDP is a metabolite of methadone. Note See Below This test is for medical use only. This test was developed and its performance characteristics determined by [facility] Path[facility] Laboratory Medicine [place] ([facility] [email or web address]). It has not been cleared or approved [...] Validity PH 7.2 4.5-8.0 Specimen Validity Specific [place] 1.005 1.003-1.035 Specimen Validity Oxidants <38 mg/L <200 Specimen Validity Nitrites <50 mg/L <500 Specimen Validity Chromate <10 mg/L <50 Test Performed By: [facility] [address] [place] [address] Finance Advisor: Yakov Gurrola III, M.D. [facility] #[id number] Performed By: #### C GO #### [facility] ([id number]) [address] [place] [phone] Laboratory comment Jacinto (Repo rt)on 03-26-2024 UNLISTED LAB TEST Sent to reference lab Normal [facility] Comment on above: Performed By: #### C GO #### [facility] ([id number]) [address] [place] [phone] Basic Metabolic Panelon 02-20 Anion gap [Moles/Vol] 11 mmol/L 9 - 17 mmol/L [facility] Calcium [Mass/Vol] 9.6 mg/dL 8.6 - 10. 4 mg/dL [facility] Chloride [Moles/Vol] 98 mmol/L 98 - 10 7 mmol/L [facility] [employer] CO2 [Moles/Vol] 26 mmol/L 20 - 31 mmol/L [facility] Creatinine [Mass/Vol] 1.1 mg/dL 0.7 - 1.2 mg/dL [facility] Est, Glom Filt Rate 80 - PINF [facility] Comment on above: These results are [...] 132 mg/dL High 70 - 99 mg/dL [facility] Interpretation and review of laboratory results Abnormal [facility] Potassium [Moles/Vol] 4.1 mmol/L 3.7 - 5.3 mmol/L [facility] Sodium [Moles/Vol] 135 mmol/L 135 - 144 mmol/L [facility] Urea nitrogen [Mass/Vol] 10 mg/dL 6 - 20 mg/dL [facility] Urea nitrogen/Creatinine [Mass ratio] 9 mg/mg 9 - 20 [facility] Basic Metabolic Profon 03-17 Anion gap [Moles/Vol] 11 mmol/L Normal 9-17 [facility] Comment on above: Performed By: #### T RIG LDLDIR #### [address] [phone] Skoog Operator: Reno Duron MD BUN/CRE Ratio 9 Normal 9-20 [facility] Comment on above: Performed By: #### T RIG LDLDIR #### [facility] [email or web address] [address] [place] [address] [phone] Skoog Operator: Reno Duron MD Calcium [Mass/Vol] 9.6 mg/dL Normal 8.6-10.4 [facility] Comment on above: Performed By: #### T RIG LDLDIR #### [facility] [email or web address] [address] [place] [address] [phone] Skoog Operator: Reno Duron MD Chloride [Moles/Vol] 98 mmol/L Normal 98-107 [facility] Comment on above: Performed By: #### T RIG LDLDIR #### [facility] [email or web address] [address] [place] [address] [place] [address] Skoog Operator: Reno Duron MD CO2 [Moles/Vol] 26 mmol/L Normal 20-31 [facility] Comment on above: Performed By: #### T RIG LDLDIR #### [facility] [address] [place] [address] Skoog Operator: Reno Duron MD Creatinine [Mass/Vol] 1.1 mg/dL Normal 0.7-1.2 [facility] Comment on above: Performed By: #### T RIG LDLDIR #### [facility] [address] [place] [address] Skoog Operator: Reno Duron MD GFR/1.73 sq M.predicted among non-blacks MDRD (S/P/Bld) [Vol rate/Area] 80 mL/min/{1.73_m2} Normal >60 [facility] Comment on above: Result Comment: These [...] #### T RIG LDLDIR #### [facility] [address] [place] [address] Skoog Operator: Reno Duron MD Glucose [Mass/Vol] 132 mg/dL High 70-99 [facility] Comment on above: Performed By: #### T RIG LDLDIR #### [facility] [address] [place] [address] Skoog Operator: Reno Duron MD Potassium [Moles/Vol] 4.1 mmol/L Normal 3.7-5.3 [facility] Comment on above: Performed By: #### T RIG LDLDIR #### [facility] [address] [place] [address] [phone] Skoog Operator: Reno Duron MD Sodium [Moles/Vol] 135 mmol/L Normal 135-144 [facility] Comment on above: Performed By: #### T RIG LDLDIR #### [facility] [address] [place] [address] Skoog Operator: Reno Duron MD Urea nitrogen [Mass/Vol] 10 mg/dL Normal 6-20 [facility] Comment on above: Performed By: #### T RIG LDLDIR #### [facility] [address] [place] [address] Skoog Operator: Reno Duron MD Brain Natri. Peptideon 03-17 Pro-BNP <36 Normal <300 [facility] Comment on above: Result Comment: An age-independent cutoff point of 300 pg/ml has a 98% negative predictive value excluding acute heart failure. Performed By: #### T KHUSHBU LDLDIR #### [facility] [address] [place] [address] Skoog Operator: Reno Duron MD Brain Natriuretic Peptideon 03-17-2024 Natriuretic peptide B (Bld) [Mass/Vol] pg/mL NINF - 300 pg/mL [facility] Comment on above: An age-independent cutoff point of 300 pg/ml has a 98% negative predictive value excluding acute heart failure. [facility] CBC with Auto Differentialon 03-17-2024 Basophils (Bld) [#/Vol] 0.04 10*3/uL [facility] Immature granulocytes (Bld) [#/Vol] 0.07 10*3/uL [facility] Interpretation and review of laboratory results Abnormal [facility] Lymphocytes/100 WBC (Bld) 2.40 % [facility] Monocytes/100 WBC (Bld) 0.86 % [facility] Neutrophils/100 WBC (Bld) 60 % 36 - 65 % [facility] Nucleated RBC/100 WBC (Bld) [Ratio] 0.0 % 0.0 per 100 WBC [facility] Segmented neutrophils/100 WBC (Bld) 5.44 % [facility] WBC other (Bld) [#/Vol] 8.9 [facility] CBC with Diffon 03-17-2024 Basophils/100 WBC (Bld) 1 % Normal 0-2 [facility] Comment on above: Performed By: #### T RIG LDLDIR #### [facility] [email or web address] [address] [place] [address] 73646 Skoog Operator: Reno Duron MD Eosinophils (Bld) [#/Vol] 0.05 10*3/uL Normal 0.00-0.44 [facility] Comment on above: Performed By: #### T RIG LDLDIR #### [facility] [email or web address] [address] [place] [address] 77883 Skoog Operator: Reno Duron MD Eosinophils/100 WBC (Bld) 1 % Normal 1-4 [facility] Comment on above: Performed By: #### T RIG LDLDIR #### [facility] [email or web address] [address] [place] [address] Skoog Operator: Reno Duron MD Erythrocyte distribution width (RBC) [Ratio] 12.0 % Normal 11.8-14.4 [facility] Comment on above: Performed By: #### T RIG LDLDIR #### [facility] [address] [place] [address] [phone] Skoog Operator: Reno Duron MD Hematocrit (Bld) [Volume fraction] 38.6 % Low 40.7-50.3 [facility] Comment on above: Performed By: #### T RIG LDLDIR #### [facility] [email or web address] [address] [place] [address] 75189 Skoog Operator: Reno Duron MD Hemoglobin (Bld) [Mass/Vol] 12.8 g/dL Low 13.0-17.0 [facility] Comment on above: Performed By: #### T RIG LDLDIR #### [facility] [email or web address] [address] [place] [address] 79687 Skoog Operator: Reno Duron MD Immature granulocytes/100 WBC (Bld) 1 % High 0 [facility] Comment on above: Performed By: #### T KHUSHBU LDLDIR #### [facility] [email or web address] [address] [place] [address] [phone] Skoog Operator: Reno Duron MD Lymphocytes/100 WBC (Bld) 27 % Normal 24-43 [facility] Comment on above: Performed By: #### T KHUSHBU LDLDIR #### [facility] [email or web address] [address] [place] [address] 05564 Skoog Operator: Reno Duron MD MCH (RBC) [Entitic mass] 28.8 pg Normal 25.2-33.5 [facility] Comment on above: Performed By: #### T KHUSHBU LDLDIR #### [address] [address] Skoog Operator: Reno Duron MD MCHC (RBC) [Mass/Vol] 33.2 g/dL Normal 28.4-34.8 [facility] Comment on above: Performed By: #### T KHUSHBU LDLDIR #### [address] [address] Skoog Operator: Reno Duron MD MCV (RBC) [Entitic vol] 86.9 fL Normal 82.6-102.9 [facility] Comment on above: Performed By: #### T KHUSHBU LDLDIR #### [address] [address] Skoog Operator: Reno Duron MD Monocytes/100 WBC (Bld) 10 % Normal 3-12 [facility] Comment on above: Performed By: #### T KHUSHBU LDLDIR #### [facility] [email or web address] [address] [place] [address] [phone] Skoog Operator: Reno Duron MD Platelet mean volume (Bld) [Entitic vol] 9.2 fL Normal 8.1-13.5 [facility] Comment on above: Performed By: #### T RIG LDLDIR #### [place] [address] Skoog Operator: Reno Duron MD Platelets (Bld) [#/Vol] 277 10*3/uL Normal 138-453 [facility] Comment on above: Performed By: #### T RIG LDLDIR #### [place] [address] Skoog Operator: Reno Duron MD RBC (Bld) [#/Vol] 4.44 10*6/uL Normal 4.21-5.77 [facility] Comment on above: Performed By: #### T RIG LDLDIR #### [place] [address] Skoog Operator: Reno Duron MD Abs. Basophil 0.04 k/uL Normal 0.00-0.20 [facility] Comment on above: Performed By: #### T KHUSHBU LDLDIR #### [address] [address] Skoog Operator: Reno Duron MD Abs.Imm.Granulocyte 0.07 k/uL Normal 0.00-0.30 [facility] Comment on above: Performed By: #### T KHUSHBU LDLDIR #### [address] [address] Skoog Operator: Reno Duron MD Abs.Neutrophil (Seg) 5.44 k/uL Normal 1.50-8.10 [facility] Comment on above: Performed By: #### T RIG LDLDIR #### [address] [address] Skoog Operator: Reno Duron MD Lymphocytes (Bld) [#/Vol] 2.40 10*3/uL Normal 1.10-3.70 [facility] Comment on above: Performed By: #### T RIG LDLDIR #### [address] [place] [address] Skoog Operator: Reno Duron MD Monocytes (Bld) [#/Vol] 0.86 10*3/uL Normal 0.10-1.20 [facility] Comment on above: Performed By: #### T RIG LDLDIR #### [address] [address] Skoog Operator: Reno Duron MD Neutrophil (Seg) 60 % Normal 36-65 [facility] Comment on above: Performed By: #### T RIG LDLDIR #### [facility] [email or web address] [address] [place] [address] Skoog Operator: Reno Duron MD NRBC Automated 0.0 per 100 WBC Normal 0.0 [facility] Comment on above: Performed By: #### T RIG LDLDIR #### [address] [address] Skoog Operator: Reno Duron MD WBC (Bld) [#/Vol] 8.9 10*3/uL Normal 3.5-11.3 [facility] Comment on above: Performed By: #### T RIG LDLDIR #### [address] [address] Skoog Operator: Reno Duron MD No Panel Informationon 03-17 [facility] Portable XR Chest AP single viewon 03-17-2024 No radiographic evid ence of acute cardiopulmonary process. [facility] EXAMINATION: ONE XRAY VIEW OF THE CHEST 03/17/2024 2:11 pm COMPARISON: 01/31/2024 HISTORY: ORDERING SYSTEM PROVIDED HISTORY: chest pain TECHNOLOGIST PROVIDED HISTORY: chest pain FINDINGS: The lungs appear clear. The heart and mediastinal structures appear unremarkable. 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 There is a spinal stimulator in the midthoracic spine. There is no change from prior examination [facility] rEnie Gutiérrez MD - 03/17/2024 EXAMINATION: ONE XRAY [...] No radiographic evidence of acute cardiopulmonary process. [facility] Radiology Study observation (narrative) [facility] [employer] Portable XR Chest AP single viewOrdered By: Ernie Gutiérrez on 03-17-2024 [facility] [employer] Work Phone: Troponinon 03-17-2024 Troponin I.cardiac High sensitivity method [Mass/Vol] 11 ng/L 0 - 22 ng/L [facility] Comment on above: High Sensitivity Tro ponin values cannot be compared with other Troponin methodologies. [facility] Troponin, High Sens 11 ng/L Normal 0-22 [facility] Comment on above: Result Comment: High Sensitivity Troponin values cannot be compared with other Troponin methodologies. Performed By: #### T RIG, LDLDIR #### [facility] [address] [place] [address] Skoog Operator: Reno Duron MD Troponin I.cardiac High sensitivity method [Mass/Vol] 11 ng/L 0 - 22 ng/L [facility] Comment on above: High Sensitivity Tro ponin values cannot be compared with other Troponin methodologies. Troponin, High Sens 11 ng/L Normal 0-22 [facility] Comment on above: Result Comment: High Sensitivity Troponin values cannot be compared with other Troponin methodologies. 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 Performed By: #### C OMP #### [address] [address] Fe Fat Qualon 03-12-2024 Fe Fat Qual Negative Normal [facility] Comment on above: Performed By: #### F FA #### [address] [address] Gastroenterology Office/Clin ic Noteon 03-12-2024 Gastroenterology Office/Clinic Note History of Present Illness This is a 53-year-old man who presented to the GI clinic to reestablish care. Patient was last evaluated by GI here at [facility] is in 01/2020 via telemedicine consultation. Patient has pertinent history of recurrent pancreatitis-underwent EUS in 05/2019 which showed gallbladder sludge, small stone-cholecystectomy was performed on 07/11/2019. Patient subsequently developed another episode of pancreatitis in 01/2020 while visiting family in [place]. The clinical course at the time had [...] reports being followed by GI both in [facility] [Dr. Saravia] patient states that he has had recurrent episodes of pancreatitis over the last 4 years-last admission for pancreatitis was in December 2023 at [facility]. 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 Dong esophagus Continue PPI Avoid NSAIDs. Lifestyle modifications including weight loss, HOB elevation, allowing at least 1-3 hours after eating before lying down, avoiding alcohol and avoiding smoking. Patient states that he had a an EGD within the last few months at [facility]-done by Dr. Saravia-results unknown at this [...] polyp-pathology unknown. The procedure was done at [facility] by Dr. Saravia-please obtain records of the same 4. Recurrent acute pancreatitis Patient has pertinent history of recurrent pancreatitis-underwent EUS in 05/2019 which showed gallbladder sludge, small stone-cholecystectomy was performed on 07/11/2019. Interval history since the last clinic visit-patient reports being followed by GI both in [facility] [Dr. Saravia] patient states that he has had recurrent episodes of pancreatitis over the last 4 years-last admission for pancreatitis was in December 2023 at [facility]. Patient states that the pancreatitis was attributed to his underlying hypertrigl (more content not included)... Normal [facility] CA 19-9on 02-08-2024 CA 19-9 17 U/mL Normal 0-35 [facility] Comment on above: Result Comment: The [employer] ECLIA assay is used. Results obtained with different assay methods cannot be used interchangeably. Performed By: #### C EA, CA19 #### [facility] [email or web address] [facility] [place] [address] Skoog Operator: Reno Duron MD CBC with Diffon 02-08-2024 Abs. Basophil <0.03 Normal 0.00-0.20 [facility] Comment on above: Performed By: #### T RIG LDLDIR #### [facility] [address] [place] [address] Skoog Operator: Reno Duron MD Abs.Imm.Granulocyte 0.18 k/uL Normal 0.00-0.30 [facility] Comment on above: Performed By: #### T RIG LDLDIR #### [facility] [address] [place] [address] Skoog Operator: Reno Duron MD Abs.Neutrophil (Seg) 6.09 k/uL Normal 1.50-8.10 [facility] Comment on above: Performed By: #### T RIG LDLDIR #### [address] [address] Skoog Operator: Reno Duron MD Basophils/100 WBC (Bld) 0 % Normal 0-2 [facility] Comment on above: Performed By: #### T RIG LDLDIR #### [place] [address] Skoog Operator: Reno Duron MD Eosinophils (Bld) [#/Vol] 0.10 10*3/uL Normal 0.00-0.44 [facility] Comment on above: Performed By: #### T RIG LDLDIR #### [place] [address] Skoog Operator: Reno Duron MD Eosinophils/100 WBC (Bld) 1 % Normal 1-4 [facility] Comment on above: Performed By: #### T RIG LDLDIR #### [address] [address] Skoog Operator: Reno Duron MD Immature granulocytes/100 WBC (Bld) 2 % High 0 [facility] Comment on above: Performed By: #### T RIG LDLDIR #### [place] [address] Skoog Operator: Reno Duron MD Lymphocytes (Bld) [#/Vol] 2.29 10*3/uL Normal 1.10-3.70 [facility] Comment on above: Performed By: #### T RIG LDLDIR #### [address] [address] Skoog Operator: Reno Duron MD Lymphocytes/100 WBC (Bld) 24 % Normal 24-43 [facility] Comment on above: Performed By: #### T RIG LDLDIR #### [address] [address] Skoog Operator: Reno Duron MD Monocytes (Bld) [#/Vol] 0.70 10*3/uL Normal 0.10-1.20 [facility] Comment on above: Performed By: #### T RIG, LDLDIR #### [address] [address] Skoog Operator: Reno Duron MD Monocytes/100 WBC (Bld) 8 % Normal 3-12 [facility] Comment on above: Performed By: #### T RIG LDLDIR #### [address] [address] Skoog Operator: Reno Duron MD Neutrophil (Seg) 65 % Normal 36-65 [facility] Comment on above: Performed By: #### T RIG LDLDIR #### [address] [address] Skoog Operator: Reno Duron MD Erythrocyte distribution width (RBC) [Ratio] 12.3 % Normal 11.8-14.4 [facility] Comment on above: Performed By: #### T RIG, LDLDIR #### [address] [address] Skoog Operator: Reno Duron MD Hematocrit (Bld) [Volume fraction] 42.3 % Normal 40.7-50.3 [facility] Comment on above: Performed By: #### T RIG, LDLDIR #### [address] [address] Skoog Operator: Reno Duron MD Hemoglobin (Bld) [Mass/Vol] 13.5 g/dL Normal 13.0-17.0 [facility] Comment on above: Performed By: #### T RIG, LDLDIR #### [address] [address] Skoog Operator: Reno Duron MD MCH (RBC) [Entitic mass] 28.4 pg Normal 25.2-33.5 [facility] Comment on above: Performed By: #### Chantell RÍOS LDLDIR #### [address] [address] Skoog Operator: Reno Duron MD MCHC (RBC) [Mass/Vol] 31.9 g/dL Normal 28.4-34.8 [facility] Comment on above: Performed By: #### Chantell RÍOS LDLDIR #### [address] [address] Skoog Operator: Reno Duron MD MCV (RBC) [Entitic vol] 89.1 fL Normal 82.6-102.9 [facility] Comment on above: Performed By: #### Chantell RÍOS LDLDIR #### [address] [address] Skoog Operator: Reno Duron MD NRBC Automated 0.0 per 100 WBC Normal 0.0 [facility] Comment on above: Performed By: #### Chantell RÍOS LDLDIR #### [address] [address] Skoog Operator: Reno Duron MD Platelet mean volume (Bld) [Entitic vol] 9.3 fL Normal 8.1-13.5 [facility] Comment on above: Performed By: #### Chantell RÍOS LDLDIR #### [address] [address] Skoog Operator: Reno Duron MD Platelets (Bld) [#/Vol] 259 10*3/uL Normal 138-453 [facility] Comment on above: Performed By: #### T KHUSHBU LDLDIR #### [address] [address] Skoog Operator: Reno Duron MD RBC (Bld) [#/Vol] 4.75 10*6/uL Normal 4.21-5.77 [facility] Comment on above: Performed By: #### T RIG, LDLDIR #### [facility] [address] [place] [address] Skoog Operator: Reno Duron MD WBC (Bld) [#/Vol] 9.4 10*3/uL Normal 3.5-11.3 [facility] Comment on above: Performed By: #### T RIG, LDLDIR #### [facility] [email or web address] [address] [place] [address] Skoog Operator: Reno Duron MD Carcinoembry. Antig.on 02-07 Carcinoembry. Antig. 7.5 ng/mL High 0.0-3.8 [facility] Comment on above: Result Comment: The [employer] ECLIA assay is used. Results obtained with different assay methods cannot be used interchangeably. Performed By: #### C EA, CA19 #### [facility] [email or web address] [address] [place] [address] Skoog Operator: Reno Duron MD Comp Metabolic Pr/rfx MGon 0 02-08-2024 Albumin [Mass/Vol] 4.0 g/dL Normal 3.5-5.2 [facility] Comment on above: Performed By: #### T RIG, LDLDIR #### [facility] [address] [place] [address] Skoog Operator: Reno Duron MD Albumin/Glob Ratio 1.4 Normal 1.0-2.5 [facility] Comment on above: Performed By: #### T RIG, LDLDIR #### [facility] [address] [place] [address] Skoog Operator: Reno Duron MD Alkaline Phos 155 U/L High 40-129 [facility] Comment on above: Performed By: #### T RIG, LDLDIR #### [facility] [address] [place] [address] Skoog Operator: Reno Duron MD ALT [Catalytic activity/Vol] 311 U/L High 5-41 [facility] Comment on above: Performed By: #### T RIG, LDLDIR #### [facility] [email or web address] [address] [place] [address] Skoog Operator: Reno Duron MD Anion gap [Moles/Vol] 9 mmol/L Normal 9-17 [facility] Comment on above: Performed By: #### T RIG, LDLDIR #### [facility] [email or web address] [address] [place] [address] Skoog Operator: Reno Duron MD AST [Catalytic activity/Vol] 121 U/L High <40 [facility] Comment on above: Performed By: #### T RIG, LDLDIR #### [facility] [email or web address] [address] [place] [address] Skoog Operator: Reno Duron MD Bilirubin [Mass/Vol] 0.5 mg/dL Normal 0.3-1.2 [facility] Comment on above: Performed By: #### T RIG, LDLDIR #### [facility] [email or web address] [address] [place] [address] Skoog Operator: Reno Duron MD BUN/CRE Ratio 18 Normal 9-20 [facility] Comment on above: Performed By: #### T RIG, LDLDIR #### [email or web address] [address] [place] [address] Skoog Operator: Reno Duron MD Calcium [Mass/Vol] 9.2 mg/dL Normal 8.6-10.4 [facility] Comment on above: Performed By: #### T RIG, LDLDIR #### [email or web address] [address] [place] [address] Skoog Operator: Reno Duron MD Chloride [Moles/Vol] 99 mmol/L Normal 98-107 [facility] Comment on above: Performed By: #### T RIG, LDLDIR #### [facility] [email or web address] [address] [place] [address] Skoog Operator: Reno Duron MD CO2 [Moles/Vol] 29 mmol/L Normal 20-31 [facility] Comment on above: Performed By: #### T KHUSHBU LDLDIR #### [facility] [email or web address] [address] [place] [address] Skoog Operator: Reno Duron MD Creatinine [Mass/Vol] 1.1 mg/dL Normal 0.7-1.2 [facility] Comment on above: Performed By: #### T KHUSHBU LDLDIR #### [facility] [email or web address] [address] [place], [place] [address] Skoog Operator: Reno Durno MD GFR/1.73 sq M.predicted among non-blacks MDRD (S/P/Bld) [Vol rate/Area] 80 mL/min/{1.73_m2} Normal >60 [facility] Comment on above: Result Comment: These [...] Performed By: #### Chantell RÍOS LDLDIR #### [address] [address] Skoog Operator: Reno Duron MD Glucose [Mass/Vol] 123 mg/dL High 70-99 [facility] Comment on above: Performed By: #### T KHUSHBU LDLDIR #### [facility] [address] [place] [address] Skoog Operator: Reno Duron MD Potassium [Moles/Vol] 4.2 mmol/L Normal 3.7-5.3 [facility] Comment on above: Performed By: #### T KHUSHBU LDLDIR #### [facility] [address] [place] [address] Skoog Operator: Reno Duron MD Protein [Mass/Vol] 6.8 g/dL Normal 6.4-8.3 [facility] Comment on above: Performed By: #### T RIG LDLDIR #### [facility] [place] [address] Skoog Operator: Reno Duron MD Sodium [Moles/Vol] 137 mmol/L Normal 135-144 [facility] Comment on above: Performed By: #### T RIG LDLDIR #### [email or web address] [address] [place] [address] Skoog Operator: Reno Duron MD Urea nitrogen [Mass/Vol] 20 mg/dL Normal 6-20 [facility] Comment on above: Performed By: #### T KHUSHBU LDLDIR #### [facility] [address] [place] [address] Skoog Operator: Reno Duron MD LDL Chol, Directon LDL Chol, Direct 65 mg/dL Normal [facility] Comment on above: Performed By: #### T KHUSHBU LDLDIR #### [facility] [email or web address] [address] [place] [address] Skoog Operator: Reno Duron MD Lipaseon 02-08-2024 Lipase [Catalytic activity/Vol] 49 U/L Normal 13-60 [facility] Comment on above: Performed By: #### B 12FOL #### [facility] [email or web address] [address] [place] [address] Skoog Operator: Reno Duron MD Triglycerideson 02-08-2024 Triglyceride [Mass/Vol] 552 mg/dL High <150 [facility] Comment on above: Result Comment: Triglyceride Guidelines: <150 Desirable 150-199 Borderline 200-499 High >499 Very high Based on AHA Guidelines for fasting triglyceride, July 2012. Performed By: #### T RIG, LDLDIR #### [facility] [address] [place] [address] Skoog Operator: Reno Duron MD CBC with Diffon 02-07-2024 Abs. Basophil 0.03 k/uL Normal 0.00-0.20 [facility] Comment on above: Performed By: #### C P, CDP, LIP #### [address] [place], [place] 2321083 Skoog Operator: Ziggy Hilario MD Abs. Eosinophil <0.03 Normal 0.00-0.44 [facility] Comment on above: Performed By: #### C P, CDP, LIP #### [address] [place], [place] [address] Skoog Operator: Ziggy Hilario MD Abs.Imm.Granulocyte 0.26 k/uL Normal 0.00-0.30 [facility] Comment on above: Performed By: #### C P, CDP, LIP #### [address] [place] [phone] Skoog Operator: Ziggy Hilario MD Abs.Neutrophil (Seg) 11.64 k/uL High 1.50-8.10 [facility] Comment on above: Performed By: #### C P, CDP, LIP #### [address] [place], [place] [address] Skoog Operator: Ziggy Hilario MD Basophils/100 WBC (Bld) 0 % Normal 0-2 [facility] Comment on above: Performed By: #### C P, CDP, LIP #### [address] [place], [facility]83 Skoog Operator: Ziggy Hilario MD Eosinophils/100 WBC (Bld) 0 % Low 1-4 [facility] Comment on above: Performed By: #### C P, CDP, LIP #### [address] [place], [facility]83 Skoog Operator: Ziggy Hilario MD Erythrocyte distribution width (RBC) [Ratio] 12.0 % Normal 11.8-14.4 [facility] Comment on above: Performed By: #### C P, CDP, LIP #### [facility] [address] [place], [place] [phone] Skoog Operator: Ziggy Hilario MD Hematocrit (Bld) [Volume fraction] 41.7 % Normal 40.7-50.3 [facility] Comment on above: Performed By: #### C P, CDP, LIP #### [address] [place], [facility]83 Skoog Operator: Ziggy Hilario MD Hemoglobin (Bld) [Mass/Vol] 14.2 g/dL Normal 13.0-17.0 [facility] Comment on above: Performed By: #### C P, CDP, LIP #### [address] [place], [place] [phone] Skoog Operator: Ziggy Hilario MD Immature granulocytes/100 WBC (Bld) 2 % High 0 [facility] Comment on above: Performed By: #### C P, CDP, LIP #### [address] [place], [facility]83 Skoog Operator: Ziggy Hilario MD Lymphocytes (Bld) [#/Vol] 1.67 10*3/uL Normal 1.10-3.70 [facility] Comment on above: Performed By: #### C P, CDP, LIP #### [address] [place], [facility]83 Skoog Operator: Ziggy Hilario MD Lymphocytes/100 WBC (Bld) 11 % Low 24-43 [facility] Comment on above: Performed By: #### C P, CDP, LIP #### [address] [place], [place] [id number] Skoog Operator: Ziggy Hilario MD MCH (RBC) [Entitic mass] 28.8 pg Normal 25.2-33.5 [facility] Comment on above: Performed By: #### C P, CDP, LIP #### [place] [address] [place] [address] Skoog Operator: Ziggy Hilario MD MCHC (RBC) [Mass/Vol] 34.1 g/dL Normal 28.4-34.8 [facility] Comment on above: Performed By: #### C P, CDP, LIP #### [facility] [address] [place], [facility]83 Skoog Operator: Ziggy Hilario MD MCV (RBC) [Entitic vol] 84.6 fL Normal 82.6-102.9 [facility] Comment on above: Performed By: #### C P, CDP, LIP #### [facility] [address] [place] [address] Skoog Operator: Ziggy Hilario MD Monocytes (Bld) [#/Vol] 1.35 10*3/uL High 0.10-1.20 [facility] Comment on above: Performed By: #### C P, CDP, LIP #### [address] [place], [facility]83 Skoog Operator: Ziggy Hilario MD Monocytes/100 WBC (Bld) 9 % Normal 3-12 [facility] Comment on above: Performed By: #### C P, CDP, LIP #### [address] [place], [facility]83 Skoog Operator: Ziggy Hilario MD Neutrophil (Seg) 78 % High 36-65 [facility] Comment on above: Performed By: #### C P, CDP, LIP #### [facility] [address] [place] [address] Skoog Operator: Ziggy Hilario MD NRBC Automated 0.0 per 100 WBC Normal 0.0 [facility] Comment on above: Performed By: #### C P, CDP, LIP #### [facility] [address] [place], [facility]83 Skoog Operator: Ziggy Hilario MD Platelet mean volume (Bld) [Entitic vol] 9.1 fL Normal 8.1-13.5 [facility] Comment on above: Performed By: #### C P, CDP, LIP #### [facility] [address] [place], [place] [phone] Skoog Operator: Ziggy Hilario MD Platelets (Bld) [#/Vol] 291 10*3/uL Normal 138-453 [facility] Comment on above: Performed By: #### C P, CDP, LIP #### [facility] [address] [place] [address] Skoog Operator: Ziggy Hilario MD RBC (Bld) [#/Vol] 4.93 10*6/uL Normal 4.21-5.77 [facility] Comment on above: Performed By: #### C P, CDP, LIP #### [facility] [address] [place], [place] [phone] Skoog Operator: Ziggy Hilario MD WBC (Bld) [#/Vol] 15.0 10*3/uL High 3.5-11.3 [facility] Comment on above: Performed By: #### C P, CDP, LIP #### [address] [place], [place] [phone] Skoog Operator: Ziggy Hilario MD CT ABDOMEN PELVIS W [...] Eder Jefferson MD 02/07/24 Final result Normal [facility] Comp Metabolic Profon 2023 Albumin [Mass/Vol] 4.4 g/dL Normal 3.5-5.2 [facility] Comment on above: Performed By: #### C P CDP, LIP #### [facility] [address] [place] [address] Skoog Operator: Ziggy Hilario MD Albumin/Glob Ratio 1.4 Normal 1.0-2.5 [facility] Comment on above: Performed By: #### C P, CDP, LIP #### [facility] [address] [place], [place] [phone] Skoog Operator: Ziggy Hilario MD Alkaline Phos 157 U/L High 40-129 [facility] Comment on above: Performed By: #### C P, CDP, LIP #### [facility] [address] [place], [place] [phone] Skoog Operator: Ziggy Hilario MD ALT [Catalytic activity/Vol] 337 U/L High 5-41 [facility] Comment on above: Performed By: #### C P, CDP, LIP #### [facility] [address] [place], [place] [phone] Skoog Operator: Ziggy Hilario MD Anion gap [Moles/Vol] 12 mmol/L Normal 9-17 [facility] Comment on above: Performed By: #### C P, CDP, LIP #### [facility] [address] [place], [place] 8240383 Skoog Operator: Ziggy Hilario MD AST [Catalytic activity/Vol] 403 U/L High <40 [facility] Comment on above: Performed By: #### C P, CDP, LIP #### [facility] [address] [place], [place] 9534983 Skoog Operator: Ziggy Hilario MD Bilirubin [Mass/Vol] 1.1 mg/dL Normal 0.3-1.2 [facility] Comment on above: Performed By: #### C P, CDP, LIP #### [facility] [address] [place], [place] 9223783 Skoog Operator: Ziggy Hilario MD BUN/CRE Ratio 27 High 9-20 [facility] Comment on above: Performed By: #### C P, CDP, LIP #### [facility] [address] [place], [place] 5395383 Skoog Operator: Ziggy Hilario MD Calcium [Mass/Vol] 9.9 mg/dL Normal 8.6-10.4 [facility] Comment on above: Performed By: #### C P, CDP, LIP #### [facility] [address] [place], [place] 1872183 Skoog Operator: Ziggy Hilario MD Chloride [Moles/Vol] 93 mmol/L Low 98-107 [facility] Comment on above: Performed By: #### C P, CDP, LIP #### [facility] [address] [place], [place] 9581183 Skoog Operator: Ziggy Hilario MD CO2 [Moles/Vol] 29 mmol/L Normal 20-31 [facility] Comment on above: Performed By: #### C P, CDP, LIP #### [facility] [address] [place], [place] 5445283 Skoog Operator: Ziggy Hilario MD Creatinine [Mass/Vol] 0.9 mg/dL Normal 0.7-1.2 [facility] Comment on above: Performed By: #### C P, CDP, LIP #### [facility] [address] [place] [address] Skoog Operator: Ziggy Hilario MD GFR/1.73 sq M.predicted among non-blacks MDRD (S/P/Bld) [Vol rate/Area] mL/min/{1.73_m2} Normal >60 [facility] Comment on above: Result Comment: These [...] By: #### C P, CDP, LIP #### [facility] [address] [place] [address] Skoog Operator: Ziggy Hilario MD Glucose [Mass/Vol] 181 mg/dL High 70-99 [facility] Comment on above: Performed By: #### C P, CDP, LIP #### [facility] [address] [place] [address] [place], [place] 4600883 Skoog Operator: Ziggy Hilario MD Potassium [Moles/Vol] 4.2 mmol/L Normal 3.7-5.3 [facility] Comment on above: Performed By: #### C P, CDP, LIP #### [facility] [address] [place] [address] Dr[place], [place] 0927183 Skoog Operator: Ziggy Hilario MD Protein [Mass/Vol] 7.5 g/dL Normal 6.4-8.3 [facility] Comment on above: Performed By: #### C P, CDP, LIP #### [address] [place], [place] 2293083 Skoog Operator: Ziggy Hilario MD Sodium [Moles/Vol] 134 mmol/L Low 135-144 [facility] Comment on above: Performed By: #### C P, CDP, LIP #### [address] [place], [place] 4909383 Skoog Operator: Ziggy Hilario MD Urea nitrogen [Mass/Vol] 24 mg/dL High 6-20 [facility] Comment on above: Performed By: #### C P, CDP, LIP #### [address] [place], [place] 3296283 Skoog Operator: Ziggy Hilario MD Hepatitis Acute [facility] 02-06 Hep A Ab,IgM Non-Reactive Normal NR [facility] Comment on above: Performed By: #### P HEP #### [employer] [facility] [address] [place], [place] 4003608 Skoog Operator: Reno Duron MD Hep B Core Ab,IgM Non-Reactive Normal NR [facility] Comment on above: Performed By: #### P HEP #### [facility] [employer] [address] [place], [place] 0058308 Skoog Operator: Reno Duron MD Hep B Surf Ag Non-Reactive Normal NR [facility] Comment on above: Performed By: #### P HEP #### [place] [address]872 [place] [address] Skoog Operator: Reno Duron MD Hep C Ab Non-Reactive Normal NR [facility] Comment on above: Result Comment: The [...] PCR. Performed By: #### P HEP #### [address] [address] Skoog Operator: Reno Duron MD Lactic Acidon 02-07-2024 Lactate [Moles/Vol] 1.7 mmol/L Normal 0.5-2.2 [facility] Comment on above: Performed By: #### T RIG, LDLDIR #### [address] [address] Skoog Operator: Reno Duron MD Lipaseon 02-07-2024 Lipase [Catalytic activity/Vol] 2280 U/L Critically high 13-60 [facility] Comment on above: Performed By: #### U MICAO, UAX #### [facility] [address] [place] [address] Skoog Operator: Ziggy Hilario MD US ABDOMEN LIMITEDon 024 [...] Eder Jefferson MD 02/07/24 Final result Normal [facility] XR CHEST (2 VW)on 02-01-2024 XR [...] Mateo Aguilar MD 02/01/24 Final result Normal [facility] Benzodiazepines Screen Ql (U )on 01-21-2024 Benzodiazepines Ql (U) Negative Normal NEG [facility] Comment on above: Result Comment: Leon odiazepines screening cut off value = 200 ng/mL This report is intended for use in clinical monitoring or management of patients. Performed By: #### 1 4316-4 #### [facility] ([id number]) [address] [facility], [address] [place] [address] CCL GENERIC ORDERon 01-21-20 TEST NAME UQNTPP QUANTITATIVE PAIN PANEL, URINE Normal [facility] Comment on above: Performed By: #### C GO #### [facility] ([id number]) [address] [place] [address] TEST RESULT See Below Normal [facility] Comment on above: Result Comment: NOTE TEST RESULT FLAG UNIT REF.RANGE ----- Specimen Validity Quality See below Specimen quality results within acceptable limits Specimen Validity Creatinine 16.2 L mg/dL 20.0-300.0 Specimen Validity PH 6.6 4.5-8.0 Specimen Validity Specific [place] 1.005 1.003-1.035 Specimen Validity Oxidants <38 mg/L [...] carboxylic acid (THCA) is a metabolite of tkupw-5-mptkfwhqmmywiexavgju which is the main active component of marijuana. Fentanyl, Urine <6 ng/mL <6 Buprenorphine, Ur <20 ng/mL <20 Methadone Urine <16 ng/mL <16 Methadone metabolite Urine <6 ng/mL <6 EDDP is a metabolite of methadone. Note See Below This test is for medical use only. This test was developed and its performance characteristics determined by [facility] [place] ([facility]). It has not been cleared or approved by the FDA. [facility] is regulated under CLIA as qualified to perform high-complexity testing. This test is used for clinical purposes. It should not be regarded as investigational or for research. QUANTITATIVE PAIN PANEL, URINE Test Performed By: [facility] [address] [place] [address] Finance Advisor: Yakov Gurrola III, M.D. [facility] #[id number] Performed By: #### C GO #### [facility] ([id number]) [address] [place] [address] Laboratory comment Jacinto (Repo rt)on 01-21-2024 UNLISTED LAB TEST Sent to reference lab Normal [facility] Comment on above: Performed By: #### C GO #### [facility] ([id number]) [address] [place] [address] Glucose Glucometer (BldC) [M ass/Vol]on 01-14-2024 Glucose [Mass/Vol] 91 mg/dL Normal 65-99 [facility] Lupus Anticoagulanton 2023 Dilute Santhosh Viper Negative Normal NLUP [facility] Comment on above: Performed By: #### Chantell RÍOS LDLDIR #### [facility] [address] [place] [address] [phone] Skoog Operator: Reno Duron MD Lupus Anticoagulanton 2023 Anticardiolipin IgM 1.3 MPL Normal 0.0-10.0 [facility] Comment on above: Result Comment: Reference Range: <10.0 Negative 10.0-40.0 Equivocal >40.0 Positive Performed By: #### Chantell RÍOS LDLDIR #### [employer] [address] [place] [address] [phone] Skoog Operator: Reno Duron MD Anticardiolipin IgA 6.0 APL Normal 0.0-14.0 [facility] Comment on above: Result Comment: Reference Range: <14.0 Negative 14.0-20.0 Equivocal >20.0 Positive When results are Equivocal, it is recommended to retest after 4-6 weeks. Performed By: #### Chantell RÍOS LDLDIR #### [employer] [address] [place] [address] [phone] Skoog Operator: Reno Duron MD Anticardiolipin IgG 1.2 GPL Normal 0.0-10.0 [facility] Comment on above: Result Comment: Reference Range: <10.0 Negative 10.0-40.0 Equivocal >40.0 Positive Performed By: #### Chantell RÍOS LDLDIR #### [facility] [address] [place] [address] Skoog Operator: Reno Duron MD Ironon 11-30-2023 Iron [Mass/Vol] 95 ug/dL 59 - 158 ug/dL [facility] Iron [Mass/Vol] 95 ug/dL Normal 59-158 [facility] Comment on above: Performed By: #### Chantell RÍOS LDLDIR #### [employer] [address] [place] [address] Skoog Operator: Reno Duron MD Lupus Anticoagulanton 2023 aPTT Coag (Bld) [Time] 28.1 s Normal 26.8-34.8 [facility] Comment on above: Result Comment: IV Heparin Therapy Range: 62.0-94.0 Performed By: #### T KHUSHBU LDLDIR #### [facility] [address] [place], [place] [phone] Skoog Operator: Reno Duron MD INR Coag (PPP) [Relative time] 1.0 {INR} Normal [facility] Comment on above: Result Comment: Therapeutic Range: Moderate Anticoagulant Intensity: INR = 2.0-3.0 High Anticoagulant Intensity: INR = 2.5-3.5 Performed By: #### T KHUSHBU LDLDIR #### [facility] [address] [place], [place] [phone] Skoog Operator: Reno Duron MD PT Coag (PPP) [Time] 13.2 s Normal 11.9-14.8 [facility] Comment on above: Performed By: #### Chantell RÍOS LDLDIR #### [facility] [address] [phone] Skoog Operator: Reno Duron MD Microscopic Urinalysison Bacteria LM Ql (Urine sed) TRACE Abnormal None [facility] Epithelial cells LM.HPF (Urine sed) [#/Area] None [facility] Interpretation and review of laboratory results Abnormal [facility] RBC LM.HPF (Urine sed) [#/Area] None [facility] WBC LM.HPF (Urine sed) [#/Area] None [facility] No Panel Informationon 11-30 [facility] UA w/Reflex Cultureon 2023 Bilirubin, SemiQt,Ur Negative Normal NEG [facility] Comment on above: Performed By: #### KIMMIE ZHUX #### [facility] [address] [place] [address] Skoog Operator: Ziggy Hilario MD Blood, Urine Negative Normal NEG [facility] Comment on above: Performed By: #### U MICAO, UAX #### [facility] [address] [place], [place] [phone] Skoog Operator: Ziggy Hilario MD Clarity (U) Clear Normal CLEAR [facility] Comment on above: Performed By: #### U MICAO, UAX #### [facility] [address] [place] [address] [place], [place] [phone] Skoog Operator: Ziggy Hilario MD Color (U) Yellow Normal YEL [facility] Comment on above: Performed By: #### U MICAO, UAX #### [address] [place], [place] 7171283 Skoog Operator: Ziggy Hilario MD Glucose Ql (U) Negative Normal NEG [facility] Comment on above: Performed By: #### U MICAO, UAX #### [facility] [address] [place] [address] Dr[place], [place] [phone] Skoog Operator: Ziggy Hilario MD Ketones Ql (U) Negative Normal NEG [facility] Comment on above: Performed By: #### U MICAO, UAX #### [address] [place], [place] [phone] Skoog Operator: Ziggy Hilario MD Leukocyte esterase Test strip Ql (U) Negative Normal NEG [facility] Comment on above: Performed By: #### U MICAO, UAX #### [address] [place], [place] [phone] Skoog Operator: Ziggy Hilario MD Nitrite,Ur Negative Normal NEG [facility] Comment on above: Performed By: #### U MICAO, UAX #### [address] [place] [address] Skoog Operator: Ziggy Hilario MD PH,Ur 6.0 Normal 5.0-9.0 [facility] Comment on above: Performed By: #### U MICAO, UAX #### [facility] [address] [place] [address] [place] [address] Skoog Operator: Ziggy Hilario MD Protein Ql (U) Negative Normal NEG [facility] Comment on above: Performed By: #### U MICAO, UAX #### [facility] [address] [place] [address] Skoog Operator: Ziggy Hilario MD Spec. [place],Ur <1.005 Low 1.010-1.020 [facility] Comment on above: Performed By: #### U MICAO, UAX #### [facility] [address] [place] [address] Skoog Operator: Ziggy Hilario MD Urobilinogen,Ur Normal Normal 0.0-1.0 [facility] Comment on above: Performed By: #### U MICAO, UAX #### [facility] [address] [place] [address] [place] [address] Skoog Operator: Ziggy Hilario MD Urinalysis with Reflex to Cu ltureon 11-30-2023 Bilirubin Ql (U) Negative [facility]GATIVE [facility] Clarity (U) Clear Clear [facility] Color (U) Yellow Yellow [facility] Glucose Test strip (U) [Mass/Vol] Negative NEGATIVE mg/dL [facility] Hemoglobin Auto test strip Ql (U) Negative NEGATIVE [facility] Interpretation and review of laboratory results Abnormal [facility] Ketones (U) [Mass/Vol] Negative NEGATIVE mg/dL [facility] Leukocyte esterase Test strip Ql (U) Negative NEGATIVE [facility] Nitrite Ql (U) Negative NEGATIVE [facility] pH (U) 6.0 [pH] 5.0 - 9.0 [facility] Protein (U) [Mass/Vol] Negative NEGATIVE mg/dL [facility] Specific gravity (U) [Rel density] Low 1.010 - 1.020 [facility] Urobilinogen Qn (U) Normal 0.0 - 1. 0 EU/dL [facility] Urinalysis,Microon 4 Bacteria TRACE Abnormal NONE [facility] Comment on above: Performed By: #### U CASSYO, UAX #### [facility] [address] [place] [address] Skoog Operator: Ziggy Hilario MD Epithelial cells LM Ql (Urine sed) None Normal 0-5 [facility] Comment on above: Performed By: #### U CASSYO, UAX #### [facility] [address] [place] [address] Skoog Operator: Ziggy Hilario MD Urine RBC's None Normal 0-2 [facility] Comment on above: Performed By: #### U CASSYO, UAX #### [facility] [address] [place] [address] Skoog Operator: Ziggy Hilario MD Urine WBC's None Normal 0-5 [facility] Comment on above: Performed By: #### U CASSYO, UAX #### [facility] [address] [place] [address] Skoog Operator: Ziggy Hilario MD Vitamin D 25 Hydroxyon 11-30 25-hydroxyvitamin D3 [Mass/Vol] 80.7 ng/mL 29.9 - PINF ng/mL [facility] Comment on above: Reference Range: Vitamin D status Range Deficiency <20 ng/mL Mild Deficiency 20-30 ng/mL Sufficiency 30-100 ng/mL Toxicity >100 ng/mL Vitamin D 25 OHon 11-30-2023 Vitamin D 25 OH 80.7 ng/mL Normal >29.9 [facility] Comment on above: Result Comment: Reference Range: Vitamin D status Range Deficiency <20 ng/mL Mild Deficiency 20-30 ng/mL Sufficiency 30-100 ng/mL Toxicity >100 ng/mL Performed By: #### T RIG, LDLDIR #### [facility] [facility] [address] [facility] [place] [id number] [employer] Operator: Reno Duron MD Basic Metabolic Profon 10-07 Anion gap [Moles/Vol] 10 mmol/L Normal 9-17 [facility] Comment on above: Performed By: #### T RIG LDLDIR #### [facility] [email or web address] [facility] [place] [address] Skoog Operator: Reno Duron MD BUN/CRE Ratio 18 Normal 9-20 [facility] Comment on above: Performed By: #### T RIG LDLDIR #### [facility] [employer] [address] [place] [address] [employer] Operator: Reno Duron MD Calcium [Mass/Vol] 9.8 mg/dL Normal 8.6-10.4 [facility] Comment on above: Performed By: #### T RIG LDLDIR #### [facility] [employer] [address] [place] [address] Sko[employer] Operator: Reno Duron MD Chloride [Moles/Vol] 99 mmol/L Normal 98-107 [facility] Comment on above: Performed By: #### T RIG LDLDIR #### [address] [address] Sko[employer] Operator: Reno Duron MD CO2 [Moles/Vol] 28 mmol/L Normal 20-31 [facility] Comment on above: Performed By: #### T RIG LDLDIR #### [facility] [employer] [address] [place] [address] S[employer] Operator: Reno Duron MD Creatinine [Mass/Vol] 1.0 mg/dL Normal 0.7-1.2 [facility] Comment on above: Performed By: #### T RIG LDLDIR #### [facility] [email or web address] [address] [place] [address] [employer] Operator: Reno Duron MD GFR/1.73 sq M.predicted among non-blacks MDRD (S/P/Bld) [Vol rate/Area] mL/min/{1.73_m2} Normal >60 [facility] Comment on above: Result Comment: These [...] #### T RIG LDLDIR #### [facility] [address] [place] [address] Sko[employer] Operator: Reno Duron MD Glucose [Mass/Vol] 100 mg/dL High 70-99 [facility] Comment on above: Performed By: #### T RIG LDLDIR #### [facility] [address] [place] [address] Skoog Operator: Reno Duron MD Potassium [Moles/Vol] 4.1 mmol/L Normal 3.7-5.3 [facility] Comment on above: Performed By: #### T RIG LDLDIR #### [facility] [email or web address] [address] [place] [address] Skoog Operator: Reno Duron MD Sodium [Moles/Vol] 137 mmol/L Normal 135-144 [facility] Comment on above: Performed By: #### T RIG LDLDIR #### [facility] [address] [place] [address] Skoog Operator: Reno Duron MD Urea nitrogen [Mass/Vol] 18 mg/dL Normal 6-20 [facility] Comment on above: Performed By: #### T RIG LDLDIR #### [facility] [address] [place] [address] Skoog Operator: Reno Duron MD CBC with Diffon 10-07-2023 Abs. Basophil 0.05 k/uL Normal 0.00-0.20 [facility] Comment on above: Performed By: #### T RIG LDLDIR #### [address] [address] Skoog Operator: Reno Duron MD Abs.Imm.Granulocyte 0.03 k/uL Normal 0.00-0.30 [facility] Comment on above: Performed By: #### T RIG LDLDIR #### [address] [address] Skoog Operator: Reno Duron MD Abs.Neutrophil (Seg) 4.11 k/uL Normal 1.50-8.10 [facility] Comment on above: Performed By: #### T RIG LDLDIR #### [address] [address] Skoog Operator: Reno Duron MD Basophils/100 WBC (Bld) 1 % Normal 0-2 [facility] Comment on above: Performed By: #### T RIG LDLDIR #### [address] [address] Skoog Operator: Reno Duron MD Eosinophils (Bld) [#/Vol] 0.05 10*3/uL Normal 0.00-0.44 [facility] Comment on above: Performed By: #### T RIG LDLDIR #### [address] [address] Skoog Operator: Reno Duron MD Eosinophils/100 WBC (Bld) 1 % Normal 1-4 [facility] Comment on above: Performed By: #### T RIG LDLDIR #### [address] [address] Skoog Operator: Reno Duron MD Erythrocyte distribution width (RBC) [Ratio] 11.9 % Normal 11.8-14.4 [facility] Comment on above: Performed By: #### T RIG LDLDIR #### [address] [address] Skoog Operator: Reno Duron MD Hematocrit (Bld) [Volume fraction] 40.2 % Low 40.7-50.3 [facility] Comment on above: Performed By: #### T RIG LDLDIR #### [address] [address] Skoog Operator: Reno Duron MD Hemoglobin (Bld) [Mass/Vol] 13.4 g/dL Normal 13.0-17.0 [facility] Comment on above: Performed By: #### T RIG LDLDIR #### [facility] [email or web address] [address] [place] [address] Skoog Operator: Reno Duron MD Immature granulocytes/100 WBC (Bld) 1 % High 0 [facility] Comment on above: Performed By: #### T RIG LDLDIR #### [address] [address] Skoog Operator: Reno Duron MD Lymphocytes (Bld) [#/Vol] 1.72 10*3/uL Normal 1.10-3.70 [facility] Comment on above: Performed By: #### T RIG LDLDIR #### [address] [address] Skoog Operator: Reno Duron MD Lymphocytes/100 WBC (Bld) 27 % Normal 24-43 [facility] Comment on above: Performed By: #### T RIG LDLDIR #### [address] [address] Skoog Operator: Reno Duron MD MCH (RBC) [Entitic mass] 28.9 pg Normal 25.2-33.5 [facility] Comment on above: Performed By: #### T RIG LDLDIR #### [facility] [email or web address] [address] [place] [address] Skoog Operator: Reno Duron MD MCHC (RBC) [Mass/Vol] 33.3 g/dL Normal 28.4-34.8 [facility] Comment on above: Performed By: #### T RIG LDLDIR #### [address] [address] Skoog Operator: Reno Duron MD MCV (RBC) [Entitic vol] 86.6 fL Normal 82.6-102.9 [facility] Comment on above: Performed By: #### T RIG LDLDIR #### [address] [address] Skoog Operator: Reno Duron MD Monocytes (Bld) [#/Vol] 0.54 10*3/uL Normal 0.10-1.20 [facility] Comment on above: Performed By: #### T RIG LDLDIR #### [address] [address] Skoog Operator: Reno Duron MD Monocytes/100 WBC (Bld) 8 % Normal 3-12 [facility] Comment on above: Performed By: #### T RIG LDLDIR #### [address] [address] Skoog Operator: Reno Duron MD Neutrophil (Seg) 62 % Normal 36-65 [facility] Comment on above: Performed By: #### T RIG LDLDIR #### [address] [address] Skoog Operator: Reno Duron MD NRBC Automated 0.0 per 100 WBC Normal 0.0 [facility] Comment on above: Performed By: #### T RIG LDLDIR #### [address] [address] Skoog Operator: Reno Duron MD Platelet mean volume (Bld) [Entitic vol] 9.1 fL Normal 8.1-13.5 [facility] Comment on above: Performed By: #### T RIG LDLDIR #### [address] [address] Skoog Operator: Reno Duron MD Platelets (Bld) [#/Vol] 250 10*3/uL Normal 138-453 [facility] Comment on above: Performed By: #### T RIG LDLDIR #### [facility] [email or web address] [address] [place] [address] Skoog Operator: Reno Duron MD RBC (Bld) [#/Vol] 4.64 10*6/uL Normal 4.21-5.77 [facility] Comment on above: Performed By: #### T RIG LDLDIR #### [facility] [email or web address] [address] [place] [address] Skoog Operator: Reno Duron MD WBC (Bld) [#/Vol] 6.5 10*3/uL Normal 3.5-11.3 [facility] Comment on above: Performed By: #### T RIG LDLDIR #### [address] [address] Skoog Operator: Reno Duron MD UA w/Reflex Cultureon 2022 Bilirubin, SemiQt,Ur Negative Normal NEG [facility] Comment on above: Performed By: #### T RIG LDLDIR #### [facility] [employer] [address] [place] [address] Skoog Operator: Reno Duron MD Blood, Urine Negative Normal NEG [facility] Comment on above: Performed By: #### T RIG LDLDIR #### [facility] [employer] [address] [place] [address] Skoog Operator: Reno Duron MD Clarity (U) Clear Normal CLEAR [facility] Comment on above: Performed By: #### T RIG LDLDIR #### [facility] [employer] [address] [place] [address] Skoog Operator: Reno Duron MD Color (U) Yellow Normal YEL [facility] Comment on above: Performed By: #### T RIG LDLDIR #### [facility] [address] [place] [address] Skoog Operator: Reno Duron MD Glucose Ql (U) Negative Normal NEG [facility] Comment on above: Performed By: #### T RIG, LDLDIR #### [address] [address] Skoog Operator: Reno Duron MD Ketones Ql (U) Negative [facility]G [facility] Comment on above: Performed By: #### T RIG, LDLDIR #### [facility] [address] [place] [address] Skoog Operator: Reno Duron MD Leukocyte esterase Test strip Ql (U) TRACE Abnormal NEG [facility] Comment on above: Performed By: #### T RIG, LDLDIR #### [address] [address] Skoog Operator: Reno Duron MD Nitrite,Ur Negative Normal NEG [facility] Comment on above: Performed By: #### T RIG, LDLDIR #### [address] [address] Skoog Operator: Reno Duron MD PH,Ur 6.0 Normal 5.0-9.0 [facility] Comment on above: Performed By: #### T RIG, LDLDIR #### [address] [address] Skoog Operator: Reno Duron MD Protein Ql (U) Negative Normal NEG [facility] Comment on above: Performed By: #### T RIG, LDLDIR #### [facility] [address] [place] [address] Skoog Operator: Reno Duron MD Spec. [place],Ur <1.005 Low 1.010-1.020 [facility] Comment on above: Performed By: #### T RIG, LDLDIR #### [address] [address] Skoog Operator: Reno Duron MD Urobilinogen,Ur Normal Normal 0.0-1.0 [facility] Comment on above: Performed By: #### T RIG LDLDIR #### [facility] [address] [place] [address] Skoog Operator: Reno Duron MD Urinalysis,Microon 3 Epithelial cells LM Ql (Urine sed) 0 TO 2 Normal 0-5 [facility] Comment on above: Performed By: #### T RIG, LDLDIR #### [facility] [address] [place] [address] Skoog Operator: Reno Duron MD Urine RBC's 0 TO 2 Normal 0-2 [facility] Comment on above: Performed By: #### T RIG, LDLDIR #### [facility] [address] [place] [address] Skoog Operator: Reno Duron MD Urine WBC's 0 TO 2 Normal 0-5 [facility] Comment on above: Performed By: #### T RIG, LDLDIR #### [facility] [address] [place] [address] Skoog Operator: Reno Duron MD Surgical Pathology Reporton 10-02-2023 Surgical Pathology Report (NOTE) Path Number: [id number] -- Diagnosis -- A. STOMACH, ANTRUM, BIOPSIES: [...] ASCENDING COLON POLYP Gross Description A. ALIN LIGHT, GASTRIC ANTRUM BIOPSIES Received in formalin are two celmente-white tissue fragments from 0.5 to 0.7 cm and are 0.7 x 0.4 x 0.2 cm in aggregate. Entirely 1cs. B. ALIN LIGHT, DONG'S ESOPHAGUS BIOPSY AT 40 CM Received [...] Description A-E. Microscopic examination performed. Processing Lab: [address] [id number] Interpretation Performed at [address] [phone] SURGICAL PATHOLOGY CONSULTATION Patient Name: ALIN LIGHT [facility] Rec: [id number] [employer] [facility] ANATOMIC PATHOLOGY [address] [facility]. [place], [place] [address] [facility] C diff Ag + Toxinon 09-10-20 C diff Ag + Toxin Negative Normal NEG [facility] Comment on above: Result Comment: No C . difficile antigen and Toxin Detected. Performed By: #### T KHUSHBU LDLDIR #### [facility] [address] [place], [place] [id number] Skoog Operator: Reno Duron MD Specimen Description .FECES Normal [facility] Comment on above: Performed By: #### T KHUSHBU LDLDIR #### [facility] [address] [place], [place] [id number] Skoog Operator: Reno Duron MD Nuclear stress test with [...] [facility] Stress Rate Pressure Product 67362 bpm*mmHg [facility] Stress Systolic [...] size is normal. BS CV RPACS STRESS [facility] [employer] Nuclear stress test with justino cardial perfusionon 07-05-2023 Radiology Study observation (narrative) [facility] 12-09-2019 XR CHEST [...] Kp Bhatia MD 12/09/19 Final result Normal [facility] XR HIP 2-3 VW W PELVIS RIGHT [...] Octavio Seymour MD 11/17/19 Final result Normal [facility] XR KNEE RIGHT (MIN 4 VIEWS)o n [...] Octavio Seymour MD 11/17/19 Final result Normal [facility] Vital Signs Date Time Vital Sign Value Performing Clinician Facility 09-05-2024 18:28-0500 Body mass index (BMI) [Ratio] 30.71 kg/m2 Dariusz Lambert MD Work Phone: [employer] [facility] 09-05-2024 18:28-0500 Body temperature 99.7 [degF] [facility] 09-05-2024 18:28-0500 Body weight 97.07 kg Dariusz Lambert MD [facility] 09-05-2024 18:28-0500 Diastolic blood pressure 90 mm[Hg] Dariusz Lambert MD Work Phone: [employer] [facility] 09-05-2024 18:28-0500 Heart rate 95 /min Dariusz Lambert MD [facility] 09-05-2024 18:28-0500 Respiratory rate 16 /min Dariusz Lambert MD [facility] 09-05-2024 18:28-0500 SaO2% (BldA) [Mass fraction] 95 % Dariusz Lambert MD Work Phone: [employer] [facility] 09-05-2024 18:28-0500 Systolic blood pressure 136 mm[Hg] Dariusz Lambert MD [facility] 08-28-2024 17:33-0500 SaO2% (BldA) [Mass fraction] 100 % KAJAL STEWART [facility] Comment on above: Order Comment: Specimen Type: ARTERIAL B LOOD SPECIMENOrdering Facility: [facility] Address: [address] [place] [address] Performed By: #### A LLBG ####[facility] LABCLIA [id number] [address] OF [facility] 08-28-2024 16:01-0500 SaO2% (BldA) [Mass fraction] 100 % KAJAL STEWART [facility] Comment on above: Order Comment: Specimen Type: ARTERIAL B LOOD SPECIMENOrdering Facility: [facility] Address: [address] [place] [address] Performed By: #### A LLMG ####[facility] LABCLIA [id number] [address] 08-28-2024 14:06-0500 SaO2% (BldA) [Mass fraction] 99 % KAJAL STEWART [facility] Comment on above: Order Comment: Specimen Type: ARTERIAL B LOOD SPECIMENOrdering Facility: [facility] Address: [address] [place] [address] Performed By: #### A LLMG ####[facility] LABIA [id number] [address] OF [place] 08-22-2024 11:24-040 Body height 177.8 cm Pac 7 Work Phone: [facility] 08-22-2024 11:24-0400 Body mass index (BMI) [Ratio] 30.37 kg/m2 Pac 7 Work Phone: [facility] 08-22-2024 11:24-0400 Body temperature 98.29 [degF] Pac 7 Work Phone: [facility] 08-22-2024 11:24-0400 Body weight 96 kg Pac 7 Work Phone: [facility] 08-22-2024 11:24-0400 Diastolic blood pressure 78 mm[Hg] Pac 7 Work Phone: [facility] 08-22-2024 11:24-0400 Heart rate 78 /min Pacc 7 Work Phone: [facility] 08-22-2024 11:24-0400 SaO2% (BldA) [Mass fraction] 98 % Pac 7 Work Phone: [facility] 08-22-2024 11:24-0400 Systolic blood pressure 125 mm[Hg] [facility] 7 Work Phone: [facility] 08-11-2024 11:56-0400 Body height 177.8 cm Kristyn Miller MD Work Phone: [facility] [employer] 08-11-2024 11:56-0400 Body mass index (BMI) [Ratio] 30.71 kg/m2 Kristyn Miller MD Work Phone: [facility] [employer] 08-11-2024 11:56-0400 Body temperature 98.2 [degF] Kristyn Miller MD [facility] 08-11-2024 11:56-0400 Body weight 97.07 kg Kristyn Miller MD Work Phone: [employer] 08-11-2024 11:56-0400 Diastolic blood pressure 82 mm[Hg] Kristyn Ring Work Phone: [employer] 08-11-2024 11:56-0400 Heart rate 68 /min Kristyn Miller MD Work Phone: [facility] [employer] 08-11-2024 11:56-0400 Respiratory rate 16 /min Kristyn Miller MD Work Phone: [facility] [employer] 08-11-2024 11:56-0400 SaO2% (BldA) [Mass fraction] 97 % Kristyn Miller MD Work Phone: [employer] 08-11-2024 11:56-0400 Systolic blood pressure 140 mm[Hg] Kristyn Miller MD Work Phone: [employer] 08-08-2024 13:21-0400 Body temperature 97.7 [degF] Eliana Gian [employer]ING [employer] [facility] Work Phone: [employer] 08-08-2024 13:21-0400 Diastolic blood pressure 79 mm[Hg] [facility] [employer] [facility] Work Phone: [employer] 08-08-2024 13:21-0400 Heart rate 87 /min [facility] [employer] [facility] Work Phone: [facility] [employer] 08-08-2024 13:21-0400 Respiratory rate 16 /min [facility] [employer] [facility] Work Phone: [employer] 08-08-2024 13:21-0400 SaO2% (BldA) [Mass fraction] 97 % [facility] [employer] Work Phone: [employer] 08-08-2024 13:21-0400 Systolic blood pressure 129 mm[Hg] [facility] [employer] [facility] Work Phone: [employer] 08-05-2024 17:30-0400 Body height 177.8 cm Sofia Smith MD Work Phone: [employer] 08-05-2024 17:30-0400 Body mass index (BMI) [Ratio] 30.71 kg/m2 Sofia Smith MD Work Phone: [employer] 08-05-2024 17:30-0400 Body temperature 98.2 [degF] Sofia Smith MD Work Phone: [employer] 08-05-2024 17:30-0400 Body weight 97.07 kg Soifa Smith MD Work Phone: [employer] 08-05-2024 17:30-0400 Diastolic blood pressure 82 mm[Hg] Sofia Smith MD Work Phone: [employer] 08-05-2024 17:30-0400 Heart rate 84 /min Sofia Smith MD Work Phone: [facility] 08-05-2024 17:30-0400 Respiratory rate 16 /min Sofia Smith MD Work Phone: [facility] 08-05-2024 17:30-0400 SaO2% (BldA) [Mass fraction] 95 % Sofia Smith MD Work Phone: [facility] 08-05-2024 17:30-0400 Systolic blood pressure 133 mm[Hg] Sofia Smith MD Work Phone: [facility] 07-28-2024 08:50-0400 Diastolic blood pressure 69 mm[Hg] Sheyla Mensah MD Work Phone: [facility] 07-28-2024 08:50-0400 Heart rate 54 /min Sheyla Mensah MD Work Phone: [facility] 07-28-2024 08:50-0400 Respiratory rate 16 /min Sheyla Mensah MD Work Phone: [facility] 07-28-2024 08:50-0400 SaO2% (BldA) [Mass fraction] 98 % Sheyla Mensah MD Work Phone: [facility] 07-28-2024 08:50-0400 Systolic blood pressure 115 mm[Hg] Sheyla Ring Work Phone: [facility] 07-28-2024 08:24-0400 Body temperature 97.5 [degF] Sheyla Mensah MD Work Phone: [facility] 07-28-2024 07:36-0400 Body height 177.8 cm Sheyla Mensah MD Work Phone: [facility] 07-28-2024 07:36-0400 Body mass index (BMI) [Ratio] 30.71 kg/m2 Sheyla Mensah MD Work Phone: [facility] 07-28-2024 07:36-0400 Body weight 97.07 kg Sheyla Mensah MD Work Phone: [facility] 07-22-2024 14:36-0400 Body temperature 97.7 [degF] SARAH Jacobson MD Work Phone: [facility] 07-22-2024 14:36-0400 Body weight 97.5 kg SARAH Jacobson MD Work Phone: [facility] 07-22-2024 14:36-0400 Diastolic blood pressure 83 mm[Hg] SARAH Jacobson MD Work Phone: [facility] 07-22-2024 14:36-0400 Heart rate 79 /min SARAH Jacobson MD Work Phone: [facility] 07-22-2024 14:36-0400 Respiratory rate 20 /min SARAH Jacobson MD Work Phone: [facility] 07-22-2024 14:36-0400 SaO2% (BldA) [Mass fraction] 98 % SARAH Jacobson MD Work Phone: [facility] 07-22-2024 14:36-0400 Systolic blood pressure 146 mm[Hg] SARAH Jcaobson MD Work Phone: [facility] 04-26-2024 11:33-0400 Body temperature 98.29 [degF] Max Delong Jr., MD [facility] [employer] 04-26-2024 11:33-0400 Diastolic blood pressure 87 mm[Hg] Max London MD Work Phone: [facility] [employer] 04-26-2024 11:33-0400 Heart rate 78 /min Max Delong Jr., MD Work Phone: [facility] 04-26-2024 11:33-0400 Respiratory rate 18 /min Max Delong Jr., MD Work Phone: [facility] 04-26-2024 11:33-0400 SaO2% (BldA) [Mass fraction] 99 % Max Delong Jr., MD Work Phone: [facility] [employer] 04-26-2024 11:33-0400 Systolic blood pressure 131 mm[Hg] Max Delong Jr., MD Work Phone: [facility] [employer] 03-17-2024 16:15-0400 Diastolic blood pressure 59 mm[Hg] Tegan Hutchins D O Work Phone: [facility] 03-17-2024 16:15-0400 Heart rate 57 /min Tegan Hutchins DO Work Phone[facility] 03-17-2024 16:15-0400 Respiratory rate 13 /min Tegan Hutchins DO Work Phone[facility] 03-17-2024 16:15-0400 SaO2% (BldA) [Mass fraction] 96 % Tegan Hutchins DO Work Phone: [facility] 03-17-2024 16:15-0400 Systolic blood pressure 117 mm[Hg] Tegan Hutchins DO Work Phone: [facility] 03-17-2024 13:56-0400 Body height 177.8 cm Tegan Hutchins DO Work Phone[facility] 03-17-2024 13:56-0400 Body mass index (BMI) [Ratio] 30.56 kg/m2 Tegan Hutchins DO Work Phone[facility] 03-17-2024 13:56-0400 Body temperature 98.4 [degF] Tegan Hutchins DO Work Phone[facility] 03-17-2024 13:56-0400 Body weight 96.62 kg Tegan Hutchins DO Work Phone[facility] 01-21-2024 13:08-0400 Body height 177.8 cm Joana Stratton MD Work Phone: [facility] [employer] [facility] 01-21-2024 13:08-0400 Body mass index (BMI) [Ratio] 29.41 kg/m2 Joana Stratton MD Work Phone: [facility] [employer] [facility] 01-21-2024 13:08-0400 Body weight 92.99 kg Joana Stratton MD Work Phone: [facility] [employer] [facility] 01-21-2024 13:08-0400 Diastolic blood pressure 77 mm[Hg] Joana Stratton M D Work Phone: [facility] [employer] [facility] 01-21-2024 13:08-0400 Heart rate 73 /min Joana Stratton MD Work Phone: [facility] [employer] [facility] 01-21-2024 13:08-0400 Respiratory rate 16 /min Joana Stratton MD Work Phone: [facility] [employer] [facility] 01-21-2024 13:08-0400 Systolic blood pressure 124 mm[Hg] Joana Stratton MD Work Phone: [facility] [employer] [facility] 12-24-2023 12:46-0500 Body height 177.8 cm Joana Stratton MD Work Phone: [facility] [employer] [facility] 12-24-2023 12:46-0500 Body mass index (BMI) [Ratio] 29.41 kg/m2 Jaona Stratton MD Work Phone: [facility] [employer] [facility] 12-24-2023 12:46-0500 Body weight 92.99 kg Joana Stratton MD Work Phone: [facility] [employer] [facility] 12-24-2023 12:46-0500 Diastolic blood pressure 85 mm[Hg] Joana Stratton M D Work Phone: [facility] [employer] [facility] 12-24-2023 12:46-0500 Heart rate 83 /min Joana Stratton MD Work Phone: [facility] [employer] [facility] 12-24-2023 12:46-0500 Respiratory rate 18 /min Joana Stratton MD Work Phone: [facility] [facility] 12-24-2023 12:46-0500 Systolic blood pressure 139 mm[Hg] Joana Stratton MD Work Phone: [facility] 11-21-2023 14:09-0500 Body height 177.8 cm Fabiola Romano BOWLING FLOOR MANAGER-SPUD GRADER Work Phone: [facility] 11-21-2023 14:09-0500 Body mass index (BMI) [Ratio] 29.41 kg/m2 Fabiola Romano BOWLING FLOOR MANAGER-SPUD GRADER Work Phone: [facility] 11-21-2023 14:09-0500 Body weight 92.99 kg Fabiola Romano BOWLING FLOOR MANAGER-SPUD GRADER Work Phone: [facility] 11-21-2023 14:09-0500 Diastolic blood pressure 78 mm[Hg] Fabiola Romano BOWLING FLOOR MANAGER-SPUD GRADER Work Phone: [facility] 11-21-2023 14:09-0500 Heart rate 84 /min Fabiola Romano BOWLING FLOOR MANAGER-SPUD GRADER Work Phone: [facility] 11-21-2023 14:09-0500 Respiratory rate 18 /min Fabiola Romano BOWLING FLOOR MANAGER-SPUD GRADER Work Phone: [facility] 11-21-2023 14:09-0500 Systolic blood pressure 121 mm[Hg] Fabiola Romano BOWLING FLOOR MANAGER-SPUD GRADER Work Phone: [facility] 10-24-2023 13:45-0500 Body height 177.8 cm Fabiola Romano BOWLING FLOOR MANAGER-SPUD GRADER Work Phone: [facility] 10-24-2023 13:45-0500 Body mass index (BMI) [Ratio] 29.41 kg/m2 Fabiola Romano BOWLING FLOOR MANAGER-SPUD GRADER Work Phone: [facility] 10-24-2023 13:45-0500 Body weight 92.99 kg Fabiola Romano BOWLING FLOOR MANAGER-SPUD GRADER Work Phone: [facility] 10-24-2023 13:45-0500 Diastolic blood pressure 85 mm[Hg] Fabiola Romano BOWLING FLOOR MANAGER-SPUD GRADER Work Phone: [facility] 10-24-2023 13:45-0500 Heart rate 82 /min Fabiola Romano BOWLING FLOOR MANAGER-SPUD GRADER Work Phone: [employer] 10-24-2023 13:45-0500 Respiratory rate 18 /min Fabiola Romano BOWLING FLOOR MANAGER-SPUD GRADER Work Phone: [employer] 10-24-2023 13:45-0500 Systolic blood pressure 128 mm[Hg] Fabiola Romano BOWLING FLOOR MANAGER-SPUD GRADER Work Phone: [employer] Encounters Encounter Date Encounter Type Care Provider Facility Start: 11-03-2024 End: 11-03-2024 ambulatory Eliana L Gian BOWLING FLOOR MANAGER-SPUD GRADER Facility:[facility] Start: 10-31-2024 End: 10-31-2024 ambulatory ELIANA L GIAN Facility:[facility] Comment on above: Post-pancreatectomy diabetes (HCC) (Primary Dx); Insulin pump status Start: 10-31-2024 End: 10-31-2024 Telemedicine consultation with patient Damion Bravo MD Work Phone: Endocrinology Start: 10-20-2024 End: 10-20-2024 ambulatory Eliana Stanleyer BOWLING FLOOR MANAGER-SPUD GRADER Facility:[facility] Start: 10-10-2024 End: 10-24-2024 Telephone encounter Dario Hines RN Work Phone: Diabetic Education Main X20 Comment on above: Insulin Pump Start F ollow Up Start: 10-07-2024 End: 10-07-2024 Nursing evaluation of patient and report Dario Hines RN Work Phone: Diabetic [facility] Main [facility] Comment on above: Post-pancreatectomy diabetes (HCC) (Primary Dx) Start: 10-07-2024 End: 10-07-2024 ambulatory ELIANA Palomo GIAN Facility:[facility] Start: 10-02-2024 End: 10-02-2024 Telephone encounter Damion Bravo MD Work Phone: Endocrinology Comment on above: Forms ([facility] [employer] Insulin pump) Start: 10-02-2024 End: 10-02-2024 ambulatory Dario Hines RN Work Phone: Diabetic Education [facility] Comment on above: Post-pancreatectomy diabetes (HCC) (Primary Dx) Start: 10-02-2024 End: 10-02-2024 Telemedicine consultation with patient Dario Hines RN Work Phone: Diabetic [facility] Start: 09-30-2024 End: 09-30-2024 ambulatory Jesus JACOBSON Facility:[facility] Start: 09-30-2024 End: 09-30-2024 Patient encounter [...] Patient Update Insurance Authorizat ion (Insulin Pump [[facility] Start: 09-05-2024 End: 09-05-2024 Emergency department patient visit Dariusz Lambert MD Work Phone: [facility] ED Comment on above: Strain of [...] Evaluation and management of inpatient Jesus JACOBSON Facility:[facility] Start: 08-22-2024 End: 08-22-2024 Patient encounter procedure Emilee Hensley PhD Work Phone: General Surgery Comment on above: IPMN (intraductal pa pillary mucinous neoplasm); Preoperative examination Start: 08-22-2024 Encounter for other preprocedural examination EMILEE HENSLEY [facility] Start: 08-22-2024 End: 08-22-2024 Nursing evaluation of patient and report Ligia Kerns RN Work Phone: General Surgery Comment on above: Preoperative examina tion (Primary Dx) Start: 08-22-2024 End: 08-22-2024 Preprocedural examination done Ligia Kerns RN Work Phone: [facility] Work Phone: Start: 08-22-2024 End: 08-22-2024 Subsequent hospital visit by physician Xr Chest Main A21 Radiology Comment on above: IPMN (intraductal pa pillary mucinous neoplasm) [D49.0] Start: 08-22-2024 End: 08-22-2024 ambulatory EMILEE HENSLEY Facility:[facility] Start: 08-22-2024 End: 08-22-2024 ambulatory Jesus ORANTESSH Facility:[facility] Start: 08-22-2024 End: 08-22-2024 Admission to establishment Pac Main 7 Work Phone: Pre Anesthesia Start: 08-22-2024 End: 08-22-2024 Anesthesia consultation [facility] Main 7 Work Phone: Pre Anesthesia Comment on above: Severe persistent as thma, unspecified whether complicated (Primary Dx); 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); Dong's esophagus with dysplasia; Other chronic pancreatitis (HCC); Fatty liver; History of bowel resection; Preoperative examination Start: 08-22-2024 End: 08-22-2024 Preprocedural examination done [facility] Main Work Phone: [facility] Work Phone: Start: 08-22-2024 End: 08-22-2024 ambulatory Jesus JACOBSON Facility:[facility] Start: 08-22-2024 End: 08-22-2024 ambulatory Damion [...] examination done Jesus Jacobson MD Work Phone: [facility] Start: 08-11-2024 End: 08-11-2024 Emergency department patient visit Kristyn Miller MD Work Phone: [facility] ED Comment on above: Left-sided chest wal l pain (Primary Dx); Rib contusion, left, sequela Start: 08-08-2024 End: 08-08-2024 Telephone encounter Jesus Jacobson MD Work Phone: General Surgery Comment on above: Patient Update Start: 08-08-2024 End: 08-08-2024 Emergency department patient visit ELIANA SPRINGER [facility] ED Comment on above: Chest wall contusion , left, initial encounter (Primary Dx); Strain of tendon of left half of anterior chest wall Start: 08-05-2024 End: 08-05-2024 Emergency department patient visit Sofia Smith MD Work Phone: [facility] ED Comment on above: Other chronic pancre atitis (HCC) (Primary Dx); Epigastric pain Start: 08-05-2024 End: 08-05-2024 Telephone encounter Ligia Kerns RN Work Phone: General Surgery Start: 08-04-2024 End: 08-04-2024 Refill Jesus Jacobson MD Work Phone: General Surgery Start: 07-30-2024 End: 08-04-2024 Telephone encounter Jesus Jacobson MD Work Phone: General Surgery Comment on above: Results; Patient Que stion Start: 07-28-2024 End: 07-28-2024 [facility] Facility:[facility] Start: 07-28-2024 End: 07-28-2024 Subsequent hospital [...] Work Phone: General Surgery Comment on above: 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 (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 for records) [facility] Start: 07-14-2024 End: 07-14-2024 [facility] Start: 07-14-2024 End: 07-14-2024 Subsequent hospital visit by physician Eliana Springer APRN - SPUD GRADER Work Phone: [facility] Comment on above: Anemia, unspecified type; Vitamin D deficiency; Other fatigue; Prostate cancer screening Start: 07-01-2024 End: 07-01-2024 ambulatory Cristal X Humberto Facility:[facility] Start: 07-01-2024 End: 07-01-2024 Patient encounter procedure Cristal X Humberto [facility] Start: 06-26-2024 End: 06-26-2024 ambulatory LUIS F APONTE [facility] Start: 05-27-2024 ambulatory Wesly Davies MD Faci lity:[facility] Start: 05-24-2024 End: 05-24-2024 Evaluation and management of inpatient LAURI WOOYD [facility] Start: 05-23-2024 ambulatory ELIANA SPRINGER [facility] Start: 05-23-2024 End: 05-24-2024 Emergency department patient visit Eliana Springer BOWLING FLOOR MANAGER-SPUD GRADER Facility:[facility] Start: 05-13-2024 End: 05-13-2024 ambulatory Wesly Davies MD Facility:[facility] Start: 05-12-2024 End: 05-12-2024 ambulatory Danica [facility]lin MD [facility] Start: 04-28-2024 End: 04-28-2024 ambulatory Danica Conklin MD Facility:[facility] Start: 04-26-2024 End: 04-26-2024 Emergency department patient visit Max Delong MD Work Phone: [facility] ED Comment on above: Thoracic myofascial strain, initial encounter (Primary Dx); Left wrist sprain, initial encounter; Closed nondisplaced fracture of phalanx of left index finger, unspecified phalanx, initial encounter Start: 04-23-2024 End: 04-25-2024 ambulatory ELIANA Stacia [facility] Start: 04-23-2024 End: 04-25-2024 Subsequent hospital visit by physician [facility] Laboratory Comment on above: Cervical spinal sten osis Start: 04-14-2024 End: 04-14-2024 ambulatory Danica Conklin MD [facility] Start: 04-03-2024 End: 04-05-2024 ambulatory [facility] Start: 04-02-2024 End: 04-02-2024 Emergency department patient visit [facility] Start: 03-26-2024 End: 03-26-2024 ambulatory FABIOLA ROMANO [facility] Start: 03-17-2024 End: 03-17-2024 Emergency department patient visit Tegan Hutchins DO Work Phone: [facility] ED Comment on above: Nonspecific chest pa in (Primary Dx) Start: 03-12-2024 End: 03-12-2024 ambulatory Eliana Springer BOWLING FLOOR MANAGER-SPUD GRADER Facility:[facility] Start: 03-12-2024 End: 03-12-2024 ambulatory Rob Corado MD [facility] Start: 02-25-2024 End: 02-25-2024 ambulatory JOANA STRATTON [facility] Start: 02-07-2024 End: 02-08-2024 Evaluation and management of inpatient IRVIN OBRIEN [facility] Start: 01-31-2024 End: 02-02-2024 ambulatory ELIANA Palomo [facility] Start: 01-31-2024 End: 02-02-2024 Subsequent hospital visit by physician Eliana Springer APRN - SPUD GRADER Work Phone: [facility] Radiology Start: 01-21-2024 End: 01-21-2024 ambulatory [facility] Start: 01-21-2024 End: 01-21-2024 Office outpatient visit 25 minutes Joana Stratton MD Work Phone: [facility] Comment on above: Thoracic spondylosis without myelopathy (Primary Dx); Postlaminectomy syndrome, lumbar region; Encounter for long-term opiate analgesic use Start: 01-21-2024 End: 01-21-2024 ambulatory [facility] Start: 01-15-2024 End: 01-15-2024 Evaluation and management of inpatient MIGDALIA Engle [facility] Start: 01-14-2024 End: 01-15-2024 Evaluation and management of inpatient [facility] Start: 12-24-2023 End: 12-24-2023 Office outpatient visit 25 minutes Joana Stratton MD Work Phone: [facility] Comment on above: Thoracic spondylosis without myelopathy (Primary Dx); Postlaminectomy syndrome, lumbar region; Encounter for long-term opiate analgesic use Start: 12-24-2023 End: 12-24-2023 ambulatory [facility] Start: 11-30-2023 End: 11-30-2023 ambulatory ELIANA Palomo [facility] Start: 11-30-2023 End: 11-30-2023 Subsequent hospital visit by physician Eliana Springer APRN - SPUD GRADER Work Phone: [facility] Laboratory Comment on above: Other fatigue; Chronic pain syndrome; Anemia, unspecified type; Low vitamin D level Start: 11-27-2023 Documentation procedure Valentina neri RN [facility] Start: 11-26-2023 End: 11-27-2023 Evaluation and management of inpatient JOANA Nickerson [facility] Start: 11-21-2023 End: 11-21-2023 Office outpatient visit 25 minutes Fabiola Romano BOWLING FLOOR MANAGER-SPUD GRADER Work Phone: [facility] Comment on above: Thoracic spondylosis without myelopathy (Primary Dx); Postlaminectomy syndrome, lumbar region; Lumbosacral spondylosis without myelopathy Start: 11-21-2023 End: 11-21-[address] [facility] Start: 11-06-2023 Orders Only Genoveva Hyatt CMA [facility] Comment on above: Thoracic spondylosis without myelopathy (Primary Dx) Start: 10-24-2023 End: 10-24-2023 Office outpatient visit 25 minutes Fabiola Romano BOWLING FLOOR MANAGER-SPUD GRADER Work Phone: [facility] Comment on above: Thoracic spondylosis (Primary Dx); Postlaminectomy syndrome, lumbar region; Encounter for long-term opiate analgesic use Start: 10-24-2023 End: 10-24-2023 [facility] Start: 10-08-2023 End: 10-09-2023 Evaluation and management of inpatient JOANA Krishan [facility] Start: 10-07-2023 End: 10-07-2023 Emergency department patient visit [facility] Start: 10-02-2023 End: 10-02-2023 ambulatory [facility] Start: 09-10-2023 End: 09-10-2023 ambulatory [facility] Start: 07-05-2023 End: 07-07-2023 Patient encounter status Uli Strong MD Work Phone: [facility] Work Phone: Start: 07-05-2023 End: 07-07-2023 Subsequent hospital visit by physician Uli Strong MD Work Phone: [facility] Non-Invasive Cardiology Comment on above: Preop cardiovascular exam; Primary hypertension; Mixed hyperlipidemia; Intermittent chest pain Start: 06-21-2023 End: 06-21-2023 Subsequent hospital visit by physician Eliana Springer BOWLING FLOOR MANAGER - SPUD GRADER Work Phone: [facility] Laboratory Comment on above: Diarrhea, unspecifie d type Start: 09-27-2020 End: 09-27-2020 Patient encounter procedure [facility] Start: 08-23-2020 End: 08-23-2020 Patient encounter procedure [facility] Start: 07-05-2020 End: 07-05-2020 Patient encounter procedure [facility] Start: 05-24-2020 End: 05-24-2020 Patient encounter procedure [facility] Start: 04-26-2020 End: 04-27-2020 Patient encounter procedure [facility] Start: 01-26-2020 End: 01-26-2020 Patient encounter procedure [facility] Start: 12-15-2019 End: 12-15-2019 Patient encounter procedure [facility] Start: 12-09-2019 End: 12-09-2019 Patient encounter procedure [facility] Start: 12-02-2019 End: 12-02-2019 Patient encounter procedure [facility] Start: 11-27-2019 End: 11-27-2019 Patient encounter procedure [facility] Start: 11-17-2019 End: 11-17-2019 Patient encounter procedure [facility] Start: 11-17-2019 End: 11-17-2019 Patient encounter procedure [facility] Procedures Date Procedure Procedure Detail Performing Clinician Start: 08-28-2024 H/O splenectomy S/P splenectomy NA W mark REARDON Work Phone: Start: 08-22-2024 Radiologic exam ches t 2 views R Kassidy Jacobson MD Work Phone: Start: 08-22-2024 Antibody screen KAJAL Harper [facility] Comment on above: Order Comment: Speci men Type: BLOOD SPECIMENOrdering Facility: [facility] Address: [address] [place] [address] Performed By: #### T [id number] ####CC MAIN BLOOD BANKCLIA [id number] [facility] [id number] Start: 08-11-2024 Ct thorax w/o contra st material M Antonio Mcgarry BOWLING FLOOR MANAGER - SPUD GRADER Work Phone: Start: 08-08-2024 Radex ribs uni w/pos teroant ch minimum 3 views Tegan J Hutchins DO Work Phone: Start: 08-05-2024 Comprehensive metabo lic panel Sofai Smith MD Work Phone: Start: 07-28-2024 End: 07-28-2024 Gluc bld gluc mntr dev cleared fda spec home use Kajal Stewart MD Work Phone: Start: 07-28-2024 Esophagoscp rig rodriguez soral hypopharynx crv robert Kerns RN Work Phone: Start: 07-14-2024 Assay of thyroid sti mulating hormone tsh Eliana Springer BOWLING FLOOR MANAGER - SPUD GRADER Work Phone: Start: 04-26-2024 End: 04-26-2024 Radex [...] Start: 11-30-2023 Urinalysis microscopic only Eliana Springer [facility] [employer] [facility] Work Phone: Start: 11-30-2023 Urnls dip stick/tabl et rgnt auto w/o microscopy Eliana Springer [facility] [employer] [facility] Work Phone: Start: 11-30-2023 Assay of iron Eliana Springer [facility] [employer] [facility] Work Phone: Start: 10-02-2023 Colonoscopy Eliana Garcia [facility] [employer]ER Work Phone: Start: 07-06-2023 Myocardial spect mul [...] MD Work Phone: Start: 07-03-2012 [facility] [employer] [facility] Work Phone: Plan of Treatment Date Care Activity Detail Author Start: 2034 Pneumococcal 0-64 years Vaccine (3 - PPSV23 if available, else PCV20) Pneumococcal 0-64 years Vaccine (3 - PPSV23 if available, else PCV20) [facility] Start: 2034 Pneumococcal 0-64 years Vaccine (3 - PPSV23 or PCV20) Pneumococcal 0-64 years Vaccine (3 - PPSV23 or PCV20) [facility] Start: 2034 Pneumococcal 0-64 years Vaccine (3 of 3 - PPSV23 or PCV20) Pneumococcal 0-64 years Vaccine (3 of 3 - PPSV23 or PCV20) [facility] Start: 2034 Pneumococcal vaccination Pneumococcal Vaccine (3 of 3 - PPSV23 or PCV20) [facility] Start: 08-22-2034 DTaP/Tdap/Td vaccine (3 - Td or Tdap) DTaP/Tdap/Td vaccine (3 - Td or Tdap) [facility] Start: 08-22-2034 Urine microalbumin profile DTaP,Tdap,Td Vaccine (3 - Td or Tdap) [facility] Start: 06-18-2027 Diabetes Screening Diabetes Screening [facility] Start: 10-02-2026 Screening for malignant neoplasm of colon [facility] Start: 05-30-2026 Screening for malignant neoplasm of colon [facility] Start: 08-22-2025 BP Controlled (<130/80) BP Controlled (<130/80) [facility] Start: 08-20-2025 End: 08-20-2025 Patient encounter procedure 08/20/2025 11:00 AM EDT Office Visit [facility] [address] [id number] Octavio Chatterjee MD [address] [place] [address], [address] [place] [address] one year PSA [facility] Comment on above: one year PSA Start: 08-05-2025 GFR test (Diabetes, CKD 3-4, OR last GFR 15-59) GFR test (Diabetes, CKD 3-4, OR last GFR 15-59) [facility] Start: 07-24-2025 Depression Monitoring Depression Monitoring [facility] Start: 07-24-2025 Hepatitis B vaccine (1 of 3 - 19+ 3-dose series) Hepatitis B vaccine (1 of 3 - 19+ 3-dose series) [facility] Comment on above: Postponed from 1988 (Patient Refus ed) Start: 06-18-2025 Depression Monitoring Depression Monitoring [facility] Start: 06-18-2025 Hemoglobin A1c measurement A1C test (Diabetic or Prediabetic) [facility] Start: 04-23-2025 GFR test (Diabetes, CKD 3-4, OR last GFR 15-59) GFR test (Diabetes, CKD 3-4, OR last GFR 15-59) [employer] Start: 04-13-2025 Glaucoma screening Diabetic retinal exam [facility] Comment on above: Postponed from 1987 (Not Indicated ) Start: 04-03-2025 Depression Monitoring Depression Monitoring [employer] Start: 04-03-2025 Diabetic foot examination Diabetic foot exam [facility] [id number] Comment on above: Postponed from 1979 (Not Indicated ) Start: 04-03-2025 DTaP/Tdap/Td vaccine (2 - Td or Tdap) DTaP/Tdap/Td vaccine (2 - Td or Tdap) [facility] Comment on above: Postponed from 12/07/2023 (Patient Refus ed) Start: 04-03-2025 Urine screening for protein Diabetic Alb to Cr ratio (uACR) test [employer] Comment on above: Postponed from 1987 (Not Indicated ) Start: 03-17-2025 GFR test (Diabetes, CKD 3-4, OR last GFR 15-59) GFR test (Diabetes, CKD 3-4, OR last GFR 15-59) [employer] Start: 02-20-2025 End: 02-20-2025 Patient encounter procedure 02/20/2025 10:20 AM EDT Office Visit Endocrinology [address] [place] [address] Damion Bravo MD [address] [place] [address] f/u Endocrinology Comment on above: f/u Start: 02-12-2025 Depression Monitoring Depression Monitoring [employer] Start: 02-07-2025 Lipid panel Lipids [employer] Start: 01-13-2025 Adult BMI Screening Adult BMI Screening [facility] Start: 01-13-2025 Tobacco Screening Tobacco Screening [facility] Start: 01-10-2025 Depression Monitoring Depression Monitoring [employer] Start: 12-23-2024 Adult BMI Screening Adult [facility] Screening [facility] Start: 12-23-2024 Tobacco Screening [facility] Start: 12-22-2024 End: 12-22-2024 Patient encounter procedure 12/22/2024 10:20 AM EST Office Visit [facility] [address] [place] [id number] Eliana Springer, BOWLING FLOOR MANAGER - SPUD GRADER [address] [place] [address] 6 month check [facility] Comment on above: 6 month check Start: 12-19-2024 Hemoglobin A1c measurement HbA1C [facility] Start: 11-26-2024 Adult BMI Screening Adult [facility] Screening [facility] Start: 11-26-2024 Tobacco Screening [facility] Start: 11-13-2024 Depression Monitoring Depression Monitoring [facility] [employer] Start: 10-31-2024 End: 10-31-2024 Follow-up encounter 10/31/2024 4:20 PM EST [facility] [address] [place] [address] Damion Bravo MD [address] [place] [address] Bravo Endocrinology Comment on above: follow up per Dr. Bravo Start: 10-24-2024 Adult BMI Screening Adult [facility] Screening [facility] Start: 10-24-2024 Tobacco Screening [facility] Screening [facility] Start: 10-17-2024 Meningococcal Conjugate Vaccine (2 - Risk 2-dose series) Meningococcal Conjugate Vaccine (2 - Risk 2-dose series) [facility] Start: 10-07-2024 GFR test (Diabetes, CKD 3-4, OR last GFR 15-59) GFR test (Diabetes, CKD 3-4, OR last GFR 15-59) [facility] Start: 10-07-2024 End: 10-07-2024 Nursing evaluation of patient and report 10/07/2024 12:30 PM EST Nurse Visit Diabetic Education Main X20 [address] [place] [address] Dario Hines, [facility] [address] [place] [address] [employer] [facility] Main [facility] Comment on above: [employer] Start: 10-02-2024 End: 10-02-2024 ambulatory 10/02/2024 12:30 PM EST [facility] Diabetic Education [facility] [address] [place] [address] Dario Hines, [facility] [address] [place] [address] Pre-pump Diabetic Education [facility] Comment on above: Pre-pump Start: 09-30-2024 End: 09-30-2024 Patient encounter procedure 09/30/2024 10:45 AM EST Office Visit General Surgery [address] [id number] [place] [address] [place] [address] postop General Surgery Comment on above: postop Start: 09-19-2024 Meningococcal B Vaccine: Consider Based On Risk (2 of 4 - Increased Risk Bexsero 2-dose series) Meningococcal B Vaccine: Consider Based On Risk (2 of 4 - Increased Risk Bexsero 2-dose series) [facility] Start: 08-28-2024 End: 08-28-2024 Admission to same day surgery center 08/28/2024 12:15 PM EST - 08/28/2024 5:45 PM EST Surgery Admitting [address] [place] [address] [place] [address] [place] [address] EXPLORATORY LAPAROTOMY Admitting Comment on above: EXPLORATORY LAPAROTOMY Start: 08-28-2024 End: 08-28-2024 Anesthesia consultation 08/28/2024 12:15 PM EST Anesthesia Event Admitting [address] [place] [address] Harjinder Craig, Research Coordinator Admitting Start: 08-28-2024 End: 08-28-2024 Exploratory laparotomy celiotomy w/wo biopsy spx [facility] Start: 08-28-2024 Subsequent hospital visit by physician 08/28/2024 12:15 PM EST Hospital Encounter Admitting [address] [place] [address] [place] [address] [place] [address] IPMN (intraductal papillary mucinous neoplasm) [D49.0] Admitting Comment on above: IPMN (intraductal papillary mucinous emmanuel plasm) [D49.0] Start: 08-22-2024 End: 08-22-2024 Nursing evaluation of patient and report 08/22/2024 1:30 PM EDT Nurse Visit General Surgery [address] [address] Ligia Kerns, RN [address] [place] [address] Pt Education General Surgery Comment on above: Pt Education Start: 08-22-2024 End: 08-22-2024 ambulatory 08/22/2024 12:30 PM EDT Results Only Cardiology [address] [address] Pre Op Cardiology Comment on above: Pre Op Start: 08-22-2024 End: 08-22-2024 Patient encounter procedure Main [place] [address] [facility] Comment on above: Pre Op Start: 08-22-2024 End: 08-22-2024 Anesthesia consultation 08/22/2024 11:20 AM EDT PAT Pre Anesthesia [address] [place] [id number], Pacc Main [address] [place] [address] PRE OP Pre Anesthesia Comment on above: PRE OP Start: 08-20-2024 End: 08-20-2024 Patient encounter procedure 08/20/2024 11:00 AM EDT Office Visit [facility] Part of [address] [place] [address] Octavio Chatterjee MD [address] [facility], [address] [place] [address] 4-6 week Follow up-PSA reminder 07/09 aw [facility] Part of [facility] Comment on above: 4-6 week Follow up-PSA reminder 07/09 aw Start: 08-14-2024 End: 11-13-2024 CBC W Auto Differential panel - Blood COMPLETE BLOOD COUNT AND DIFFERENTIAL Lab Routine IPMN (intraductal papillary mucinous neoplasm) Preoperative examination Expected: 08/14/2024 (Approximate), Expires: 11/13/2024 [facility] Comment on above: Expected: 08/14/2024 (Approximate), Expi res: 11/13/2024 Start: 08-14-2024 End: 11-13-2024 Comprehensive metabolic 2000 panel - Serum or Plasma COMPREHENSIVE METABOLIC PANEL Lab Routine IPMN (intraductal papillary mucinous neoplasm) Preoperative examination Expected: 08/14/2024 (Approximate), Expires: 11/13/2024 [facility] Comment on above: Expected: 08/14/2024 (Approximate), Expi res: 11/13/2024 Start: 08-14-2024 End: 11-13-2024 CONFIRM BLOOD TYPE CONFIRM BLOOD TYPE Blood Bank Routine IPMN (intraductal papillary mucinous neoplasm) Preoperative examination Expected: 08/14/2024, Expires: 11/13/2024 [facility] Comment on above: Expected: 08/14/2024, Expires: Start: 08-14-2024 End: 11-13-2024 TYPE AND SCREEN,30 DAY TYPE AND SCREEN,30 DAY Blood Bank Routine IPMN (intraductal papillary mucinous neoplasm) Preoperative examination Expected: 08/14/2024, Expires: 11/13/2024 [facility] Comment on above: Expected: 08/14/2024, Expires: Start: 08-09-2024 Hemoglobin A1c measurement A1C test (Diabetic or Prediabetic) [facility] [employer] [facility] Start: 08-09-2024 Lipid panel Lipids [facility] Start: 08-04-2024 End: 08-04-2024 Patient encounter procedure 08/04/2024 8:00 PM EDT Appointment [facility] [address] [place] [address] Diagnostic [facility] Comment on above: Diagnostic Start: 07-28-2024 End: 07-28-2024 Patient encounter procedure 07/28/2024 7:30 AM EDT Appointment Gastroenterology [address] [address] Sheyla Mensah MD [address] [address] Type: Gastroenterology Comment on above: Type: Start: 07-22-2024 End: 07-22-2024 Patient encounter procedure 07/22/2024 3:00 PM EDT Office Visit General Surgery [address] [place] [id number] [place] [address] [place] [address] panc cyst General Surgery Comment on above: panc cyst Start: 07-22-2024 End: 10-21-2024 Cancer Ag 19-9 [Units/volume] in Serum or Plasma [facility] Work Phone: Comment on above: Expected: 07/22/2024, Expires: Start: 07-17-2024 End: 07-17-2024 Patient encounter procedure 07/17/2024 1:00 PM EDT Office Visit [facility] Part [address] [place] [address] Octavio Chatterjee MD [address] [facility], [address] [place] [id number] 4-6 week Follow up-PSA reminder 07/09 aw [facility] Comment on above: 4-6 week Follow up-PSA reminder 07/09 aw Start: 07-12-2024 Hepatitis B vaccine (1 of 3 - 3-dose series) Hepatitis B vaccine (1 of 3 - 3-dose series) [facility] Comment on above: Postponed from 1969 (Patient Refus ed) Start: 06-22-2024 Covid-19 Vaccine ( season) Covid-19 Vaccine ( season) [facility] Start: 06-22-2024 Influenza vaccination [facility] [facility] Start: 06-21-2024 Depression Monitoring Depression Monitoring [facility] Start: 05-22-2024 Influenza vaccination Flu vaccine (#1) [facility] Start: 05-22-2024 End: 05-22-2024 Patient encounter procedure 05/22/2024 12:30 PM EDT Office Visit [facility] [address] [place] [address] Demarcus Reid MD [address] [place] [address] re-est care [facility] Comment on above: re-est care Start: 05-13-2024 End: 05-13-2024 Patient encounter procedure 05/13/2024 2:20 PM EDT Office Visit [facility] [address] [place] [address] Eliana Springer, NATE - SPUD GRADER [address] [place], [place] [id number] 6 months and awv [facility] Comment on above: 6 months and awv Start: 02-25-2024 End: 02-25-2024 Patient encounter procedure 02/25/2024 12:30 PM EDT Office Visit [facility] [address] [place] [address] [address] [place] [phone] Joana Stratton MD [address] [facility] [place] [address] [facility] Start: 01-21-2024 End: 01-21-2024 Patient encounter procedure 01/21/2024 12:50 PM EDT Office Visit [facility] [address] [place] [address] Joana Stratton MD [address] [place] [address] [facility] Start: 12-24-2023 End: 12-24-2023 Patient encounter procedure 12/24/2023 1:00 PM EST Office Visit [facility] [address] [address] Joana Stratton MD [address] [place] [address] [facility] Start: 12-07-2023 DTaP,Tdap and Td Vaccines (2 - Td or Tdap) DTaP,Tdap and Td Vaccines (2 - Td or Tdap) [facility] Start: 12-07-2023 DTaP/Tdap/Td vaccine (2 - Td or Tdap) DTaP/Tdap/Td vaccine (2 - Td or Tdap) [facility] Start: 12-07-2023 Urine microalbumin profile DTaP,Tdap,Td Vaccine (2 - Td or Tdap) [facility] Start: 11-26-2023 End: 11-26-2023 Admission to same day surgery center 11/26/2023 11:00 AM EST - 11/26/2023 11:10 AM EST Surgery [facility] Surgery [address] [place] [phone] Joana Stratton MD [address] [place] [address] #2 Bilateral Thoracic Medial Branch Block T7-8 and T8-9 [76931 (CPT )] [facility] Surgery Comment on above: #2 Bilateral Thoracic Medial Branch Bloc k T7-8 and T8-9 [88258 (CPT )] Start: 11-26-2023 End: 11-26-2023 Njx dx/ther agt pvrt facet jt crv/thrc 1 level INJECTION BLOCK NERVE MEDIAL BRANCH Thoracic spondylosis without myelopathy 11/26/2023 11:[address] [facility] Start: 11-26-2023 End: 11-26-2023 Patient encounter procedure 11/26/2023 11:00 AM EST Procedure visit [facility] [address] [place] [phone] [facility] Start: 11-26-2023 Subsequent hospital visit by physician 11/26/2023 11:00 AM EST Hospital Encounter [facility] Surgery [address] [place] [phone] Joana Stratton MD [address] [place] [place] [phone] [facility] Surgery Start: 11-21-2023 End: 11-21-2023 Patient encounter procedure 11/21/2023 2:30 PM EST Office Visit [facility] [address] [place] [phone] Fabiola Romano, BOWLING FLOOR MANAGER-SPUD GRADER [address] [place] [address] [facility] Start: 10-22-2023 Annual Wellness Visit (Medicare Advantage) Annual Wellness Visit (Medicare Advantage) [facility] Start: 07-12-2023 End: 07-12-2023 Patient encounter procedure [facility] Comment on above: 1 month f/u establish care Start: 07-09-2023 End: 07-09-2023 Patient encounter procedure 07/09/2023 2:40 PM EDT Office Visit [facility] [address] [place] [address] Eliana Springer, BOWLING FLOOR MANAGER - SPUD GRADER [address] [place] [address] right ear impacted painful and muffled [facility] Comment on above: right ear impacted painful and muffled Start: 06-29-2023 End: 06-29-2023 Patient encounter procedure 06/29/2023 Office Visit Cardiology Uli Strong MD [address] [place], [place] [phone] [facility] Part [facility] Start: 06-26-2023 End: 06-26-2023 Patient encounter procedure 06/26/2023 Office Visit Gastroenterology She Mead, BOWLING FLOOR MANAGER - SPUD GRADER [address] [place] [address] [facility] Start: 05-22-2023 Influenza vaccination Flu vaccine (#1) [facility] Start: 03-01-2023 Lipid panel Lipid Screening [facility] Start: 07-03-2022 Screening for malignant neoplasm of colon Colonoscopy [facility] Start: 09-01-2021 COVID-19 Vaccine (4 - Booster for Moderna series) COVID-19 Vaccine (4 - Booster for Moderna series) [facility] Start: 09-01-2021 COVID-19 Vaccine (4 - Moderna series) COVID-19 Vaccine (4 - Moderna series) [facility] Start: 08-09-2021 Lipid panel Lipids [facility] Start: 05-24-2021 Hemoglobin A1c measurement A1C test (Diabetic or Prediabetic) [facility] Start: 03-01-2019 Hepatitis B surface antibody level LDL Cholesterol [facility] Start: 2014 Screening for malignant neoplasm of colon [facility] Start: 1988 Hepatitis B vaccine (1 of 3 - 19+ 3-dose series) Hepatitis B vaccine (1 of 3 - 19+ 3-dose series) [facility] Start: 1987 Adult BMI Follow Up Plan Adult BMI Follow Up Plan [facility] Start: 1987 Annual PCP Team Chronic Disease Visit Annual PCP Team Chronic Disease Visit [facility] Start: 1987 Anxiety Screening Anxiety Screening [facility] Start: 1987 Depression Screening Depression Screening [facility] Start: 1987 Glaucoma screening Diabetic retinal exam [facility] Start: 1987 Hepatitis C screening Hepatitis C Screening [facility] Start: 1987 HIV screening HIV Screening [facility] Start: 1987 Spirometry Spirometry [facility] Start: 1987 Urine screening for protein Diabetic Alb to Cr ratio (uACR) test [facility] Start: 1981 Depression Screening Depression Screening [facility] [employer] Start: 1979 Diabetic foot examination Diabetic foot exam [facility] Start: 1979 Glaucoma screening Dilated Retinal Exam [facility] Start: 1979 Hepatitis B screening Urine Albumin:Creatinine Ratio [facility] Start: 1969 Hepatitis B vaccine (1 of 3 - 3-dose series) Hepatitis B vaccine (1 of 3 - 3-dose series) [facility] [employer] End: 01-20-2025 Benzodiazepine, urine, qualitative Benzodiazepine, urine, qualitative Lab Routine Postlaminectomy syndrome, lumbar region Encounter for long-term opiate analgesic use 1 Occurrences starting 01/21/2024 until 01/20/2025 [employer] Work Phone: Comment on above: 1 Occurrences starting 01/21/2024 until 01/20/2025 Benzodiazepines [Presence] in Urine Benzodiazepine, urine, qualitative Lab Routine Postlaminectomy syndrome, lumbar region Encounter for long-term opiate analgesic use 01/21/2024 6:17 PM EDT [employer] End: 04-23-2024 CT Cervical spine W contrast IV [facility] [employer] Work Phone: Comment on above: 1 Occurrences starting 04/23/2024 until 04/23/2024 CT Chest WO contrast CT CHEST WO CONTRAST Imaging STAT 08/11/2024 1:05 PM EDT [facility] End: 08-14-2025 ECG COMPLETE ECG COMPLETE ECG Routine IPMN (intraductal papillary mucinous neoplasm) Preoperative examination 1 Occurrences starting 08/14/2024 until 08/14/2025 [facility] Comment on above: 1 Occurrences starting 08/14/2024 until 08/14/2025 End: 07-22-2025 EGD - THERAPEUTIC, EUS, OR TUBE INTERVENTIONS EGD - THERAPEUTIC, EUS, OR TUBE INTERVENTIONS Endoscopy Routine Cyst and pseudocyst of pancreas 1 Occurrences starting 07/22/2024 until 07/22/2025 [facility] Comment on above: 1 Occurrences starting 07/22/2024 until 07/22/2025 EKG 12 Lead EKG 12 Lead ECG STAT 03/17/2024 2:02 PM EDT [facility] End: 06-21-2023 Gastrointestinal Panel, Molecular [facility] [employer] Comment on above: 1 Occurrences starting 06/21/2023 until 06/21/2023 INJECTION BLOCK NERV E MEDIAL BRANCH INJECTION BLOCK NERVE MEDIAL BRANCH Thoracic spondylosis [employer] End: 07-14-2024 Iron and TIBC [facility] [employer] Comment on above: 1 Occurrences starting 07/14/2024 until 07/14/2024 Lupus Anticoagulant Lupus Antico agulant Lab Routine Other fatigue Chronic pain syndrome 11/30/2023 9:42 AM EST [facility] PANC ELASTASE, FECAL PANC ELASTA SE, FECAL Lab Routine Cyst and pseudocyst of pancreas 07/22/2024 4:18 PM EDT [facility] End: 07-14-2024 PSA screening [facility] Work Phone: Comment on above: 1 Occurrences starting 07/14/2024 until 07/14/2024 RADIOFREQUENCY ABLAT ION SPINAL RADIOFREQUENCY ABLATION SPINAL Postlaminectomy syndrome, lumbar region Encounter for long-term opiate analgesic use Thoracic spondylosis without myelopathy [employer] REFER FOR ADMIT INTERVIEW REFER FOR ADMIT INTERVIEW Procedures Routine IPMN (intraductal papillary mucinous neoplasm) Preoperative examination Ordered: 08/14/2024 [facility] Work Phone: Comment on above: Ordered: 08/14/2024 Spirometry panel Incentive adam metry RT Respiratory Care Routine Every 2hr while awake until discontinued starting 08/08/2024 [facility] [employer] Comment on above: Every 2hr while awake until discontinued starting 08/08/2024 End: 01-20-2025 Unlisted Lab Test Unlisted Lab Test Lab Routine Postlaminectomy syndrome, lumbar region Encounter for long-term opiate analgesic use 1 Occurrences starting 01/21/2024 until 01/20/2025 [employer] Comment on above: 1 Occurrences starting 01/21/2024 until 01/20/2025 Unlisted Lab Test UR INE DRUG SCREEN;PAIN MANAGEMENT Unlisted Lab Test URINE DRUG SCREEN;PAIN MANAGEMENT Lab Routine Postlaminectomy syndrome, lumbar region Encounter for long-term opiate analgesic use 01/21/2024 6:17 PM EDT [facility] End: 08-05-2024 Urinalysis with Microscopic Urinalysis with Microscopic Lab STAT One Time for 1 Occurrences starting 08/05/2024 until 08/05/2024 [employer] Comment on above: One Time for 1 Occurrences starting 07/22 until 08/05/2024 End: 07-14-2024 Vitamin B12 & Folate [employer] Comment on above: 1 Occurrences starting 07/14/2024 until 07/14/2024 End: 07-14-2024 Vitamin D 25 Hydroxy [facility] [employer] Comment on above: 1 Occurrences starting 07/14/2024 until 07/14/2024 End: 09-13-2025 XR Chest PA and Lateral XR CHEST 2V FRONTAL/LAT Radiology Routine IPMN (intraductal papillary mucinous neoplasm) Preoperative examination 1 Occurrences starting 08/14/2024 until 09/13/2025 [facility] Comment on above: 1 Occurrences starting 08/14/2024 until 09/13/2025 Immunizations Immunization Date Immunization Notes Care Provider Charito lim 08-22-2024 DTP-Haemophilus influenzae type b conjugate vaccine [facility] 7 Work Phone: [facility] 08-22-2024 meningococcal (MenACWY-TT) vaccine, quadrivalent (MENQUADFI) Pac 7 Work Phone: [facility] 08-22-2024 meningococcal B vacc ine, recombinant, OMV, adjuvanted Pac 7 Work Phone: [facility] 08-22-2024 pneumococcal conjuga te (PCV20) vaccine, 20 valent (PREVNAR 20) Pac 7 Work Phone: [facility] Work Phone: 08-14-2023 influenza virus vacc ine, unspecified formulation Joana Stratton MD Work Phone: [facility] 08-13-2023 Influenza, injectabl e, Madin Allison Canine Kidney, preservative free, quadrivalent Eliana Gian BOWLING FLOOR MANAGER - SPUD GRADER Work Phone: [facility] 07-14-2023 COVID-19, MODERNA, (2022- formula), (age 12y+), IM, 50mcg/0.5mL Eliana Gian BOWLING FLOOR MANAGER - SPUD GRADER Work Phone: [facility] 07-07-2021 COVID-19, MODERNA BL UE border, Primary or Immunocompromised, (age 12y+), IM, 100 mcg/0.5mL Eliana Gian BOWLING FLOOR MANAGER - SPUD GRADER Work Phone: [facility] 02-01-2021 COVID-19, MODERNA BL UE border, Primary or Immunocompromised, (age 12y+), IM, 100 mcg/0.5mL Elaina Gian BOWLING FLOOR MANAGER - SPUD GRADER Work Phone: [facility] 01-03-2021 COVID-19, MODERNA BL UE border, Primary or Immunocompromised, (age 12y+), IM, 100 mcg/0.5mL Eliana Gian BOWLING FLOOR MANAGER - SPUD GRADER Work Phone: [facility] 08-07-2020 zoster vaccine recombinant Eliana Gian BOWLING FLOOR MANAGER - SPUD GRADER Work Phone: [facility] 06-29-2020 influenza virus vacc ine, unspecified formulation Sofia Smith MD Work Phone: [facility] 06-29-2020 influenza, injectabl e, quadrivalent, preservative free Eliana Gian BOWLING FLOOR MANAGER - SPUD GRADER Work Phone: [facility] 06-29-2020 influenza, seasonal, injectable Eliana Gian BOWLING FLOOR MANAGER - SPUD GRADER Work Phone: [facility] 06-05-2020 zoster vaccine recombinant Eliana Gian BOWLING FLOOR MANAGER - SPUD GRADER Work Phone: [facility] 08-01-2019 influenza, injectabl e, quadrivalent, preservative free Eliana Gian BOWLING FLOOR MANAGER - SPUD GRADER Work Phone: [facility] 09-17-2018 influenza, injectabl e, quadrivalent, preservative free [employer] BOWLING FLOOR MANAGER [employer] Work Phone: [facility] 10-01-2017 influenza virus vacc ine, unspecified formulation Sofia Smith MD Work Phone: [facility] 10-01-2017 influenza, injectabl e, quadrivalent, contains preservative [employer] BOWLING FLOOR MANAGER [employer] [facility] Work Phone: [facility] 08-06-2017 pneumococcal conjuga te vaccine, 13 valent [employer] Work Phone: [facility] 07-07-2017 pneumococcal conjuga te vaccine, 13 valent [employer] BOWLING FLOOR MANAGER [employer] SP[employer]ER Work Phone: [facility] 01-17-2017 pneumococcal polysaccharide vaccine, 23 valent [employer] BOWLING FLOOR MANAGER [employer] Work Phone: [facility] 08-17-2016 influenza virus vacc ine, unspecified formulation [employer] BOWLING FLOOR MANAGER [employer] Work Phone: [facility] Work Phone: 12-07-2013 tetanus toxoid, redu pierre diphtheria toxoid, and acellular pertussis vaccine, adsorbed [employer] BOWLING FLOOR MANAGER [employer] SPUD [employer]ADER Work Phone: [facility] 11-01-2010 pneumococcal conjuga te vaccine, 13 valent [facility] [employer] [facility] Work Phone: [facility] Payers Date Payer Category Payer Medicare [id number] 2023 Medicare [id number] 1.2.8 [id number] 2019 Medicaid [id number] 2014 Medicare [id number] 1969 Unknown [id number] 2.16.8 40.1.954197.3.579.2.93 1969 Unknown [id number] 2.16.8 40.1.547017.3.579.2.93 1969 Unknown [id number] 2.16.8 40.1.070325.3.579.2.93 1969 Unknown [id number] 2.16.8 40.1.954696.3.579.2.93 1969 Unknown [id number] 2.16.8 40.1.836523.3.579.2.93 1969 Unknown [id number] 2.16.8 40.1.513144.3.579.2.93 1969 Unknown [id number] 2.16.8 40.1.977088.3.579.2.93 1969 Unknown [id number] 2.16.8 40.1.680360.3.579.2.93 1969 Unknown [id number] 2.16.8 40.1.738041.3.579.2.93 1969 Unknown [id number] 2.16.8 40.1.796462.3.579.2.93 1969 Unknown [id number] 2.16.8 40.1.845610.3.579.2.93 1969 Unknown [id number] 2.16.8 40.1.210597.3.579.2.93 1969 Unknown [id number] 2.16.8 40.1.838749.3.579.2.93 1969 Unknown [id number] 2.16.8 40.1.745382.3.579.2.1286 1969 Unknown [id number] 2.16.8 40.1.717361.3.579.2.1286 1969 Unknown [id number] 2.16.8 40.1.626571.3.579.2.1286 1969 Unknown [id number] 2.16.8 40.1.206515.3.579.2.128 1969 Unknown [id number] 2.16.8 40.1.789110.3.579.2.1285 1969 Unknown [id number] 2.16.8 40.1.037521.3.579.2.1285 1969 Unknown [id number] 2.16.8 40.1.236336.3.579.2.1285 1969 Unknown [id number] 2.16.8 40.1.510142.3.579.2.1285 1969 Unknown [id number] 2.16.8 40.1.352446.3.579.2.1285 1969 Unknown [id number] 2.16.8 40.1.162021.3.579.2.1285 1969 Unknown [id number] 2.16.8 40.1.397201.3.579.2.1285 1969 Unknown [id number] 2.16.8 40.1.885175.3.579.2.1285 1969 Unknown [id number] 2.16.84 0.1.044422.3.579.2.1285 1969 Unknown [id number] 2.16.840 .1.672798.3.579.2.1285 1969 Unknown [id number] 2.16.8 40.1.793841.3.579.2.1285 1969 Unknown [id number] 2.16.8 40.1.309547.3.579.2.1285 1969 Unknown [id number] 2.16.8 40.1.091089.3.579.2. 1969 Unknown [id number] 2.16.8 40.1.264379.3.579.2.173 1969 Unknown [id number] 2.16.8 40.1.917469.3.579.2. 1969 Unknown [id number] 2.16.8 40.1.382827.3.579.2.173 1969 Unknown [id number] 2.16.8 40.1.817230.3.579.2.173 1969 Unknown [id number] 2.16.8 40.1.407457.3.579.2.173 1969 Unknown [id number] 2.16.8 40.1.435222.3.579.2.173 1969 Unknown [id number] 2.16.8 40.1.293685.3.579.2.173 1969 Unknown [id number] 2.16.8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 long-term opiate analgesic use Encounter for long-term (current) use of other medications [facility] Diagnosis Thoracic spondylosis without myelopathy- Primary Postlaminectomy syndrome, lumbar region Encounter for long-term opiate analgesic use Encounter for long-term (current) use of other medications [facility]* Diagnosis Nonspecific chest pain- Primary documented in this encounter [facility] note* Diagnosis Cervical spinal stenosis Spinal stenosis in cervical region documented in this encounter [facility] note* Diagnosis Thoracic myofascial strain, initial encounter- Primary Left wrist sprain, initial encounter Closed nondisplaced fracture of phalanx of left index finger, unspecified phalanx, initial encounter documented in this encounter [facility] note* Diagnosis Anemia, unspecified type Vitamin D deficiency Unspecified vitamin D deficiency Other fatigue Prostate cancer screening Special screening for malignant neoplasm of prostate documented in this encounter [facility] note* Diagnosis Cyst and pseudocyst of pancreas- Primary [facility] Diagnosis IPMN (intraductal papillary mucinous neoplasm)- Primary Neoplasm of unspecified nature of digestive system documented in this encounter [facility] note* Diagnosis Cyst and pseudocyst of pancreas documented in this encounter [facility] note* Diagnosis Other chronic pancreatitis (HCC)- Primary Epigastric pain Abdominal pain, epigastric documented in this encounter [facility] note* Diagnosis Chest wall contusion, left, initial encounter- Primary Strain of tendon of left half of anterior chest wall documented in this encounter [facility] note* Diagnosis Left-sided chest wall pain- Primary Painful respiration Rib contusion, left, sequela documented in this encounter [facility] note* Diagnosis IPMN (intraductal papillary mucinous neoplasm)- Primary Neoplasm of unspecified nature of digestive system IPMN (intraductal papillary mucinous neoplasm) Neoplasm of unspecified nature of digestive system documented in this encounter [facility] note* Diagnosis IPMN (intraductal papillary mucinous neoplasm)- Primary Neoplasm of unspecified nature of digestive system Preoperative examination Preoperative examination, unspecified IPMN (intraductal papillary mucinous neoplasm) Neoplasm of unspecified nature of digestive system documented in this encounter [facility] note* Diagnosis Severe persistent asthma, unspecified whether complicated- Primary 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 [facility] Diagnosis Severe persistent asthma, unspecified [...] of digestive system [facility] Diagnosis Severe persistent asthma, unspecified [...] of digestive system [facility] Diagnosis Severe persistent asthma, unspecified [...] of digestive system documented in this encounter [facility] note* Diagnosis IPMN (intraductal papillary mucinous neoplasm)- [...] post-operative pain- Primary documented in this encounter [facility] note* Diagnosis Strain of neck muscle, initial encounter- Primary documented in this encounter [facility] note* Diagnosis IPMN (intraductal papillary mucinous [...] Primary Postsurgical hypoinsulinemia [facility]* Diagnosis IPMN (intraductal papillary mucinous [...] (HCC) Postsurgical hypoinsulinemia documented in this encounter [facility] note* Diagnosis IPMN (intraductal papillary mucinous neoplasm)- [...] of digestive system documented in this encounter [facility] note* Diagnosis IPMN (intraductal papillary mucinous neoplasm)- [...] Primary Postsurgical hypoinsulinemia [facility] Diagnosis IPMN (intraductal papillary mucinous [...] Insulin pump status documented in this encounter [facility] Discharge instructions No data available for this section [facility] InstructionsNot on filedocumented in this encounter [facility] filed[facility] this [facility] filedocumented in this encounter [facility] filedocumented in this encounter [facility] filedocumented in this encounter [facility] No data available for this section [facility] reason for referral (narrative)* Outpatient Procedure (Routine) - New Request Specialty Diagnoses / Procedures Referred By Kwabena gray Referred To Contact [facility] Diagnoses Cyst and pseudocyst of pancreas Procedures EGD - THERAPEUTIC, EUS, OR TUBE INTERVENTIONS EGD INTRMURAL US NEEDLE ASPIRATE/[place] [address] [place] [address] [place] [id number] [place] [id number] Referral ID Status Reason Start Date Expiration Date Visits Requested Visits Authorized [id number] New Request Auto-Generat ed Referral 07/22/2024 07/22/2025 1 1 [facility] for referral (narrative)* Outpatient Procedure (Routine) - Closed Specialty Diagnoses / Procedures Referred By Kwabena gray Referred To Contact [facility] Diagnoses Cyst and pseudocyst of pancreas Procedures EGD - THERAPEUTIC, EUS, OR TUBE INTERVENTIONS EGD INTRMURAL US NEEDLE ASPIRATE/[place] [address] [place] [address] [address] Referral ID Status Reason Start Date Expiration Date V isits Requested Visits Authorized [id number] Closed Auto-Generate d Referral 07/24/2024 10/21/2024 1 1 [facility] for visit Narrative* Outpatient Procedure (Routine) - Closed Specialty Diagnoses / Procedures Referred By Contac t Referred To Contact [facility] Diagnoses Cyst and pseudocyst of pancreas Procedures EGD - THERAPEUTIC, EUS, OR TUBE INTERVENTIONS EGD INTRMURAL US NEEDLE ASPIRATE/[place] [address] [place] [id number] [address] Referral ID Status Reason Start Date Expiration Date V isits Requested Visits Authorized [id number] Closed Auto-Generate d Referral 07/24/2024 10/21/2024 1 1 [facility] Summary Purpose Family History No Family History [...] Name Relationship Healthcare Agent Relationship Communication January Patterson Spouse Primary Decision Maker Latest Code Status on File Code Status Date Activated Date Inactivated Comments Full Code 05/19/2023 12:25 AM 05/22/2023 7:29 PM Healthcare Agents on File Name Relationship Healthcare Agent Relationship Communication Genoveva Patterson Spouse Primary Decision Maker Healthcare Agents on File Name Relationship Healthcare Agent Relationship Communication [facility] Spouse Primary Decision Maker Latest Code Status on File Code Status Date Activated Date Inactivated Comments Full Code 02/07/2024 1:19 PM 02/08/2024 4:10 PM Code Status History Code Status Date Activated Date Inactivated Comments Full Code 05/19/2023 12:25 AM 05/22/2023 7:29 PM Healthcare Agents on File Name Relationship Healthcare Agent Relationship Communication January Patterson Spouse Primary Decision Maker [facility] Healthcare Agents on File Name Relationship Healthcare Agent Relationship Communication January Patterson Spouse Primary Decision Maker @[email or web address] Latest Code Status on File Code Status Date Activated Date Inactivated Comments Full Code 02/07/2024 1:19 PM 02/08/2024 4:10 PM Code Status History Code Status Date Activated Date Inactivated Comments Full Code 05/19/2023 12:25 AM 05/22/2023 7:29 PM Healthcare Agents on File Name Relationship Healthcare Agent Relationship Communication January Patterson Spouse Primary Decision Maker [facility] Healthcare Agents on File Name Relationship Healthcare Agent Relationship Communication January Patterson Spouse Primary Decision Maker [facility] Date Activated Date Inactivated Comments 02/07/2024 1:19 PM 02/08/2024 4:10 PM Date Activated Date Inactivated Comments 05/19/2023 12:25 AM 05/22/2023 7:29 PM Healthcare Agents on File Name Relationship Healthcare Agent Relationship Communication January Patterson Spouse Primary Decision Maker [email or web address] Healthcare Agents on File Name Relationship Healthcare Agent Relationship Communication January Patterson Spouse Primary Decision Maker @[email or web address] Healthcare Agents on File Name Relationship Healthcare Agent Relationship Communication Genoveva Light Spouse Primary Decision Maker @[email or web address] Healthcare Agents on File Name Relationship Healthcare Agent Relationship Communication Genoveva Light Spouse Primary Decision Maker @[email or web address] Reason for Referral Specialty Diagnoses / Procedures Referred By Contac t Referred To Contact Radiology Diagnoses Preop cardiovascular exam Primary hypertension Mixed hyperlipidemia Intermittent chest pain Procedures Nuclear stress test with myocardial perfusion Uli Strong MD [address] [place] [address] Referral ID Status Reason Start Date Expiration Date Visits Re quested Visits Authorized [id number] Closed 06/29/2023 06/28/2024 3 3 Specialty Diagnoses / Procedures Referred By Contac t Referred To Contact Diagnoses Thoracic spondylosis Procedures Case request operating room: #2 Bilateral Thoracic Medial Branch block T7-8 and T8-9 Fabiola Romano, BOWLING FLOOR MANAGER-SPUD GRADER [address] [facility] [place] [address] Referral ID Status Reason Start Date Expiration Date V isits Requested Visits Authorized [id number] Pending Review 10/24/2023 10/23/2024 1 1 Specialty Diagnoses / Procedures Referred By Contac t Referred To Contact Diagnoses Thoracic spondylosis without myelopathy Procedures Case request operating room: #2 Bilateral Thoracic Medial Branch Block T7-8 and T8-9 Joana Stratton MD [address] [facility] [address] Referral ID Status Reason Start Date Expiration Date V isits Requested Visits Authorized [id number] Pending Review 11/06/2023 11/05/2024 1 1 Specialty Diagnoses / Procedures Referred By Contac t Referred To Contact Rehabilitation Diagnoses Lumbosacral spondylosis without myelopathy Fabiola Romano, BOWLING FLOOR MANAGER-SPUD GRADER [address] [facility] [place] [address] [facility] [address] [place] [address] Referral ID Status Reason Start Date Expiration Date Visits Requested Visits Authorized [id number] Authorized Specialty Services Required 11/21/2023 11/20/2024 1 1 Scheduling Instructions PT 3 times a week for 6 weeks. Specialty Diagnoses / Procedures Referred By Contac t Referred To Contact Rehabilitation Diagnoses Thoracic spondylosis without myelopathy Joana Stratton MD [address] [place] [address] Referral ID Status Reason Start Date Expiration Date Visits Requested Visits Authorized [id number] Pending Review Specialty Services Required 12/24/2023 12/23/2024 1 1 Specialty Diagnoses / Procedures Referred By Contac t Referred To Contact Diagnoses Postlaminectomy syndrome, lumbar region Encounter for long-term opiate analgesic use Thoracic spondylosis without myelopathy Procedures Case request operating room: Bilateral thoracic Radiofrequency ablation T7-8 and T8-9 Joana Stratton MD [address] [place] [address] Referral ID Status Reason Start Date Expiration Date V isits Requested Visits Authorized [id number] Pending Review 12/24/2023 12/23/2024 1 1 Specialty Diagnoses / Procedures Referred By Contac t Referred To Contact Radiology Diagnoses Cervical spinal stenosis Procedures CT CERVICAL SPINE W CONTRAST Danica Conklin MD [address] [place] [address] Referral ID Status Reason Start Date Expiration Date Visits Re quested Visits Authorized [id number] Closed 04/17/2024 04/17/2025 1 1 Specialty Diagnoses / Procedures Referred By Contac t Referred To Contact Diagnoses IPMN (intraductal papillary mucinous neoplasm) Preoperative examination Procedures REFER TO [facility] - PREOPERATIVE OPTIMIZATION OFFICE/OUTPATIENT [facility] [address] [place] [address] [place] [address] Referral ID Status Reason Start Date Expiration Date Visits Requested Visits Authorized [id number] Authorized PCP Requested Referral 08/14/2025 1 1 Specialty Diagnoses / Procedures Referred By Contac t Referred To Contact [facility] Diagnoses IPMN (intraductal papillary mucinous neoplasm) Preoperative examination Procedures ECG COMPLETE ECG ROUTINE ECG W/LEAST 12 LDS W/I&[place] [address] [place] [address] [facility] [address] [place] [address] Referral ID Status Reason Start Date Expiration Date Visits Requested Visits Authorized [id number] New Request Auto-Generat ed Referral 4 08/14/2025 1 1 Specialty Diagnoses / Procedures Referred By Contac t Referred To Contact Diagnoses IPMN (intraductal papillary mucinous neoplasm) Preoperative examination Procedures CONSULT TO [facility] OFFICE/OUTPATIENT [facility] 60 MINUTES Jesus Jacobson MD [address] [place], [place] [id number] Referral ID Status Reason Start Date Expiration Date Visits Requested Visits Authorized [id number] Authorized PCP Requested Referral 4 08/14/2025 1 1 Specialty Diagnoses / Procedures Referred By Contac t Referred To Contact Pain Management Diagnoses IPMN (intraductal papillary mucinous neoplasm) Preoperative examination Procedures CONSULT TO PAIN MGT OFFICE/OUTPATIENT [facility] 60 MINUTES Jesus Jacobson MD [address] [place], [place] [id number] Referral ID Status Reason Start Date Expiration Date Visits Requested Visits Authorized [id number] Authorized PCP Requested Referral 4 08/14/2025 1 1 Additional Source Comments (unrecognized sect ion and content) No Status Records FoundNo Status Records FoundNo Status Records FoundNo Status Records FoundNo Status Records FoundNo Status Records FoundNo Status Records FoundNo Status Records FoundNo Status Records Found INFORMATION SOURCE (unrecogn ized section and content) DATE CREATED AUTHOR 09/27/2020 [facility] DATE CREATED AUTHOR AUTHOR'S ORGANIZ ATION 04/04/2024 [facility] DATE CREATED AUTHOR AUTHOR'S ORGANIZ ATION 05/26/2024 [facility] DATE CREATED AUTHOR AUTHOR'S ORGANIZ ATION 05/31/2024 [facility] DATE CREATED AUTHOR AUTHOR'S ORGANIZ ATION 07/03/2024 Yaron Booker [facility] DATE CREATED AUTHOR AUTHOR'S ORGANIZ ATION 07/13/2024 [facility] DATE CREATED AUTHOR AUTHOR'S ORGANIZ ATION 09/08/[address] [facility] DATE CREATED AUTHOR AUTHOR'S ORGANIZ ATION 11/01/2024 [facility] DATE CREATED AUTHOR AUTHOR'S ORGANIZ ATION 11/12/2024 [facility] Care Teams (unrecognized sec tion and content) Military Equipment Specialist Relationship Specialty Start Date End Date Eliana Springer APRN - CNP [address] [place] [address] PCP - General Certified Nurse Practitioner 04/23/23 Military Equipment Specialist Relationship Specialty Start Date End Date Eliana Springer APRN - CNP [address] [place] [id number] PCP - General Certified Nurse Practitioner 04/23/23 Military Equipment Specialist Relationship Specialty Start Date End Date Eliana Springer APRN-SPUD GRADER [address] [place] [address] PCP - General Nurse Practitioner 07/16/23 Military Equipment Specialist Relationship Specialty Start Date End Date Eliana Springer APRN-CNP [address] [place] [phone] PCP - General Nurse Practitioner 07/16/23 Military Equipment Specialist Relationship Specialty Start Date End Date Eliana Springer APRN-CNP [address] [place] [address] PCP - General Nurse Practitioner 07/16/23 Military Equipment Specialist Relationship Specialty Start Date End Date Eliana Springer APRN-SPUD GRADER [address] [place] [address] PCP - General Nurse Practitioner 07/16/23 Military Equipment Specialist Relationship Specialty Start Date End Date Eliana Springer APRN - CNP [address] [facility] [place] [address] PCP - General Certified Nurse Practitioner 04/23/23 Military Equipment Specialist Relationship Specialty Start Date End Date Eliana Springer APRN-CNP [address] [facility] [place] [address] PCP - General Nurse Practitioner 07/16/23 Military Equipment Specialist Relationship Specialty Start Date End Date Eliana Springer APRN-CNP [address] [facility] [place] [address] PCP - General Nurse Practitioner 07/16/23 Military Equipment Specialist Relationship Specialty Start Date End Date Eliana Springer APRN - CNP [address] [facility] [place] [address] PCP - General Certified Nurse Practitioner 04/23/23 Military Equipment Specialist Relationship Specialty Start Date End Date Eliana Springer APRN - CNP [address] [facility] [place] [address] PCP - General Certified Nurse Practitioner 04/23/23 Military Equipment Specialist Relationship Specialty Start Date End Date Eliana Springer APRN - CNP [address] [facility] [place] [address] PCP - General Certified Nurse Practitioner 04/23/23 Military Equipment Specialist Relationship Specialty Start Date End Date Eliana Springer APRN - CNP [address] [facility] [place] [address] PCP - General Certified Nurse Practitioner 04/23/23 Military Equipment Specialist Relationship Specialty Start Date End Date Eliana Springer APRN - SPUD GRADER [address] [place] [address] PCP - General Certified Nurse Practitioner 04/23/23 Military Equipment Specialist Relationship Specialty Start Date End Date GianEliana APRN - SPUD GRADER [address] [place] [address] PCP - General Certified Nurse Practitioner 04/23/23 Military Equipment Specialist Relationship Specialty Start Date End Date Wesly Davies MD [address] [place] [address] Referring Gastroenterology 07/16/24 Military Equipment Specialist Relationship Specialty Start Date End Date Wesly Davies MD [address] [place] [address] Referring Gastroenterology 07/16/24 Military Equipment Specialist Relationship Specialty Start Date End Date Wesly Davies MD [address] [place] [address] Referring Gastroenterology 07/16/24 Military Equipment Specialist Relationship Specialty Start Date End Date Wesly Davies MD [address] [place] [address] Referring Gastroenterology 07/16/24 Military Equipment Specialist Relationship Specialty Start Date End Date Wesly Davies MD [address] [place] [address] Referring Gastroenterology 07/16/24 Military Equipment Specialist Relationship Specialty Start Date End Date Wesly Davies MD [address] [place] [address] Referring Gastroenterology 07/16/24 Military Equipment Specialist Relationship Specialty Start Date End Date Wesly Davies MD [address] [facility] [address] [place], [place] [id number] Referring Gastroenterology 07/16/24 Wesly Davies MD [address] [facility] [place] [id number] Referring Gastroenterology 07/25/24 Military Equipment Specialist Relationship Specialty Start Date End Date Wesly Davies MD [address] [facility] [address] [place], [place] [id number] Referring Gastroenterology 07/16/24 Wesly Davies MD [address] [facility] [address] [facility] [place] [id number] Referring Gastroenterology 07/25/24 Military Equipment Specialist Relationship Specialty Start Date End Date Wesly Davies MD [address] [address] [facility] [place], [place] [id number] Referring Gastroenterology 07/16/24 Wesly Davies MD [address] [place], [place] [id number] Referring Gastroenterology 07/25/24 Military Equipment Specialist Relationship Specialty Start Date End Date Wesly Davies MD [address] [place], [place] [id number] Referring Gastroenterology 07/16/24 Wesly Davies MD [address] [place], [place] [id number] Referring Gastroenterology 07/25/24 Military Equipment Specialist Relationship Specialty Start Date End Date Eliana Springer APRN - SPUD GRADER [address] [facility], [place] [id number] PCP - General Certified Nurse Practitioner 04/23/23 Military Equipment Specialist Relationship Specialty Start Date End Date Wesly Davies MD [address] [place] [address] Referring Gastroenterology 07/16/24 Wesly Davies MD [address] [place] [address] Referring Gastroenterology 07/25/24 Military Equipment Specialist Relationship Specialty Start Date End Date Wesly Davies MD [address] [place] [address] Referring Gastroenterology 07/16/24 Wesly Davies MD [address] [place] [address] Referring Gastroenterology 07/25/24 Military Equipment Specialist Relationship Specialty Start Date End Date Wesly Davies MD [address] [place] [address] Referring Gastroenterology 07/16/24 Wesly Davies MD [address] [place] [address] Referring Gastroenterology 07/25/24 Military Equipment Specialist Relationship Specialty Start Date End Date Eliana Springer APRN.SPUD GRADER [address] [facility], [place] [id number] PCP - General Family Medicine 08/15/24 Wesly Davies MD [address] [facility] [address] [place], [place] [id number] Referring Gastroenterology 07/16/24 Wesly Davies MD [address] [place], [place] [id number] Referring Gastroenterology 07/25/24 Military Equipment Specialist Relationship Specialty Start Date End Date Eliana Springer BOWLING FLOOR MANAGER.SPUD GRADER [address] [place], [place] 7671983 PCP - General Family Medicine 08/15/24 Wesly Davies MD [address] [facility] [address] [facility] [place] 6851940 Referring Gastroenterology 07/16/24 Wesly Davies MD [address] [facility] [place] 7198440 Referring Gastroenterology 07/25/24 Military Equipment Specialist Relationship Specialty Start Date End Date Eliana Springer, BOWLING FLOOR MANAGER.SPUD GRADER [address] [place] [address] PCP - General Family Medicine 08/15/24 Wesly Davies MD [address] [place], [place] [id number] Referring Gastroenterology 07/16/24 Wesly Davies MD [address] [facility] [address] Referring Gastroenterology 07/25/24 Military Equipment Specialist Relationship Specialty Start Date End Date Eliana Springer, BOWLING FLOOR MANAGER.SPUD GRADER [address] [place] [address] [id number] PCP - General Family Medicine 08/15/24 Wesly Davies MD [address] [place], [place] [id number] Referring Gastroenterology 07/16/24 Wesly Davies MD [address] [facility] [facility] [address] Referring Gastroenterology 07/25/24 Military Equipment Specialist Relationship Specialty Start Date End Date Eliana Springer, BOWLING FLOOR MANAGER.SPUD GRADER [address] [place] [address] PCP - General Family Medicine 08/15/24 Wesly Davies MD [address] [facility] [place] [id number] Referring Gastroenterology 07/16/24 Wesly Davies MD [address] [facility] [place] [id number] Referring Gastroenterology 07/25/24 Military Equipment Specialist Relationship Specialty Start Date End Date Eliana Springer, BOWLING FLOOR MANAGER.SPUD GRADER [address] [place] [address] PCP - General Family Medicine 08/15/24 Wesly Davies MD [address] [place], [place] [id number] Referring Gastroenterology 07/16/24 Wesly Davies MD [address] [place], [place] 1660640 Referring Gastroenterology 07/25/24 Military Equipment Specialist Relationship Specialty Start Date End Date Eliana Springer BOWLING FLOOR MANAGER.SPUD GRADER [address] [facility], [place] [id number] PCP - General Family Medicine 08/15/24 Wesly Davies MD [address] [facility] [address] Referring Gastroenterology 07/16/24 Wesly Davies MD [address] [place] [address] Referring Gastroenterology 07/25/24 Military Equipment Specialist Relationship Specialty Start Date End Date Eliana Springer BOWLING FLOOR MANAGER.SPUD GRADER [address] [facility] [place] [address] PCP - General Family Medicine 08/15/24 Wesly Davies MD [address] [place] [address] Referring Gastroenterology 07/16/24 Wesly Davies MD [address] [place] [address] Referring Gastroenterology 07/25/24 Military Equipment Specialist Relationship Specialty Start Date End Date Eliana Springer APRN - SPUD GRADER [address] [facility], [place] [id number] PCP - General Certified Nurse Practitioner 04/23/23 Military Equipment Specialist Relationship Specialty Start Date End Date Eliana Springer BOWLING FLOOR MANAGER.SPUD GRADER [address] [facility] [place] [address] PCP - General Family Medicine 08/15/24 Wesly Davies MD [address] [place], [place] [id number] Referring Gastroenterology 07/16/24 Wesly Davies MD [address] [place], [place] 4985640 Referring Gastroenterology 07/25/24 Military Equipment Specialist Relationship Specialty Start Date End Date Eliana Springer BOWLING FLOOR MANAGER.SPUD GRADER [address] [facility], [place] [id number] PCP - General Family Medicine 08/15/24 Wesly Davies MD [address] [place], [place] 0672340 Referring Gastroenterology 07/16/24 Wesly Davies MD [address] [facility] [place] [id number] Referring Gastroenterology 07/25/24 Military Equipment Specialist Relationship Specialty Start Date End Date Eliana Springer, BOWLING FLOOR MANAGER.SPUD GRADER [address] [facility] [place] [address] PCP - General Family Medicine 08/15/24 Wesly Davies MD [address] [place] [address] Referring Gastroenterology 07/16/24 Wesly Davies MD [address] [place] [address] Referring Gastroenterology 07/25/24 Military Equipment Specialist Relationship Specialty Start Date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
[2024-11-24 09:40] VITALS: BP 135/80; PULSE 76; TEMP 36.3; O2SAT 97
[2024-11-24 10:10] VITALS: BP 130/59; PULSE 82; O2SAT 98
[2024-11-24 10:15] VITALS: BP 129/74; PULSE 90; O2SAT 99
[2024-11-24] MEDS: BUPIVACAINE HCL 0.25% PF 25 MG/10 ML VIAL 2 ML INJ (10:23)
[2024-11-24] MEDS: DEXAMETHASONE SOD PHOS 10 MG/ML VIAL INJ (10:23)
[2024-11-24] MEDS: LIDOCAINE HCL 2% 400 MG/20 ML MDV 8 ML INJ (10:23)
--- NOTE | 2024-11-24 10:24 | P.ON_ITS ---
Date of procedure: 11/24/24 Pre-op diagnosis: Pain due to thoracic spondylosis without myelopathy Post-op diagnosis: same as pre-op Procedure: Procedure: Left T6-7, 7-8 radiofrequency ablation Medications: Bupivacaine 0.25% 2cc, lidocaine 2% 3cc, dexamethasone 10mg The patient was seen and examined in the preoperative holding area.? The site was marked.? Written informed consent was obtained and placed on the chart.? The patient was brought to the medical procedure unit and placed in the prone position.? A timeout was completed verifying correct patient, procedure, positioning, and special requirements.? The skin overlying the target points, the designated medial branch, were prepped and draped in the usual sterile fashion.? The target point was achieved with a 20-gauge 15 cm with a 10 mm curved active tip radiofrequency cannula under direct fluoroscopic visualization .? The needle was inserted at level T6 on the left side. Needle tip position was confirmed with lateral fluoroscopic position.? Motor stimulation was carried out at 2 Hz up to 5 volts with the absence of extremity activity.? This was repeated at level T7, 8 on left side.?? Sensory stimulation was carried out.? Concordant pain was realized at the above- mentioned sites.? Then radiofrequency lesioning was carried out times 90 seconds at 80 degrees times 2 lesions at each level.? The radiofrequency probe was removed prior to cannula removal.? The above-mentioned injectate was placed in 1 mL increments.? The needle was removed.? Insertion sites were covered.? The patient was taken to the postoperative recovery area and monitored for an appropriate length of time before being found suitable for discharge in the company of a responsible adult. Anesthesia: Local Surgeon: Danica Conklin Pathology: none sent Condition: stable Disposition: no change
== END 2024-11-24 10:29 | disposition home or self-care (01) ==
LOC: SURGOUT 08:54
PROVIDERS: PCP Nurse Practitioner Family; Visit Provider Anesthesiology
DX: M47.814 Spondylosis without myelopathy or radiculopathy, thoracic region (principal); E11.9 Type 2 diabetes mellitus without complications
CPT/HCPCS: 64633; 64634; J0665; J1100

== ENCOUNTER 2024-12-22 09:20 | Day surgery (SDC) | payer MEDICARE, MEDICAID, SELFPAY ==
[2024-12-22 09:45] VITALS: BP 135/86; PULSE 80; TEMP 36.9; O2SAT 97
[2024-12-22 10:21] VITALS: BP 157/74; PULSE 82; O2SAT 97
[2024-12-22 10:28] VITALS: BP 155/78; PULSE 100; O2SAT 98
[2024-12-22] MEDS: BUPIVACAINE HCL 0.25% PF 25 MG/10 ML VIAL 2 ML INJ (10:33)
[2024-12-22] MEDS: DEXAMETHASONE SOD PHOS 10 MG/ML VIAL INJ (10:33)
[2024-12-22] MEDS: LIDOCAINE HCL 2% 400 MG/20 ML MDV 8 ML INJ (10:34)
--- NOTE | 2024-12-22 10:34 | P.ON_ITS ---
Date of procedure: 12/22/24 Pre-op diagnosis: Pain due to thoracic spondylosis without myelopathy Post-op diagnosis: same as pre-op Procedure: Procedure: Right T6-7, 7-8 radiofrequency ablation Medications: Bupivacaine 0.25% 2cc, lidocaine 2% 3cc, dexamethasone 10mg The patient was seen and examined in the preoperative holding area.? The site was marked.? Written informed consent was obtained and placed on the chart.? The patient was brought to the medical procedure unit and placed in the prone position.? A timeout was completed verifying correct patient, procedure, positioning, and special requirements.? The skin overlying the target points, the designated medial branch, were prepped and draped in the usual sterile fashion.? The target point was achieved with a 20-gauge 15 cm with a 10 mm curved active tip radiofrequency cannula under direct fluoroscopic visualizatio n.? The needle was inserted at level T6 on the right side. Needle tip position was confirmed with lateral fluoroscopic position.? Motor stimulation was carried out at 2 Hz up to 5 volts with the absence of extremity activity.? This was repeated at level T7, 8 on right side.?? Sensory stimulation was carried out.? Concordant pain was realized at the above- mentioned sites.? Then radiofrequency lesioning was carried out times 90 seconds at 80 degrees times 2 lesions at each level.? The radiofrequency probe was removed prior to cannula removal.? The above-mentioned injectate was placed in 1 mL increments.? The needle was removed.? Insertion sites were covered.? The patient was taken to the postoperative recovery area and monitored for an appropriate length of time before being found suitable for discharge in the company of a responsible adult. Anesthesia: Local Surgeon: Danica Conklin Pathology: none sent Condition: stable Disposition: no change
== END 2024-12-22 10:38 | disposition home or self-care (01) ==
PROVIDERS: PCP Nurse Practitioner Family; Visit Provider Anesthesiology
DX: M47.814 Spondylosis without myelopathy or radiculopathy, thoracic region (principal); E11.9 Type 2 diabetes mellitus without complications
CPT/HCPCS: 64633; 64634; 82948; J0665; J1100

== ENCOUNTER 2025-01-22 13:03 | Outpatient (OUT) | payer MEDICARE, MEDICAID, SELFPAY ==
--- NOTE | 2025-01-22 14:06 | PM.CN ---
Consult Note: HPI Data of Consult Patient: known to practice within the last 3 years Requesting Physician: Vanessa Chavez NP Primary Care Provider: Meg Lynn Consult Narrative Reason for consult: neck pain, back pain Narrative: 54yom who presents for assessment of chronic back pain. has continued in chiropractic therapy >6 weeks, without benefit. failed provider guided HEP for 6 weeks. uses tramadol. denies adverse med side effects. recent bilateral C5-6 TFESI >50% improvement ongoing. pt underwent splenectomy and pancreatectomy at [facility], now utilizing an insulin pump for type 1 DM. recently underwent left and right T6/7 T7/8 RFA with mild relief at this time. cc:: CC: Vanessa Chavez NP Review of Systems ROS Status of ROS 10 or more systems reviewed and unremarkable except as noted in history and below Musculoskeletal Reports: back pain, neck pain and extremity pain [facility] Medical History (Updated 01/22/25 @ 14:06 by Vanessa Chavez NP) Pancreatic cancer ?C25.9 - Malignant neoplasm of pancreas, unspecified (ICD-10) Diabetes ?E11.9 - Type 2 diabetes mellitus without complications (ICD-10) High cholesterol ?E78.00 - Pure hypercholesterolemia, unspecified (ICD-10) Surgical History History of back surgery ?Z98.890 - Other specified postprocedural states (ICD-10) Hx of cholecystectomy ?Z90.49 - Acquired absence of other specified parts of digestive tract (ICD-10) Status post insertion of spinal cord stimulator ?Z96.89 - Presence of other specified functional implants (ICD-10) History of kyphoplasty ?Z98.890 - Other specified postprocedural states (ICD-10) History of splenectomy ?Z90.81 - Acquired absence of spleen (ICD-10) 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 (ICD-10) Meds Home Medications and Allergies Home Medications ?Medication ?Instructions ?Recorded ?Confirmed ?Type amitriptyline 50 mg tablet 50 mg PO DAILY 04/14/24 12/22/24 History amlodipine 2.5 mg tablet 2.5 mg PO DAILY 04/14/24 12/22/24 History atorvastatin 40 mg tablet 40 mg PO DAILY 04/14/24 12/22/24 History cholecalciferol (vitamin D3) 50 5,000 unit PO DAILY 04/14/24 12/22/24 History mcg (2,000 unit) capsule (D3-2000) fenofibrate 54 mg tablet 54 mg PO DAILY 04/14/24 12/22/24 History ferrous sulfate 325 mg (65 mg 325 mg PO DAILY 04/14/24 12/22/24 History iron) tablet (Feosol) fexofenadine 180 mg tablet 180 mg PO DAILY 04/14/24 12/22/24 History kmnjth-fmarpcii-katypdt 1 cap PO TID 04/14/24 12/22/24 History 36,000-114,000-180,000 unit capsule,delay rel (Creon) mepolizumab 100 mg/mL subcutaneous mg subcut .MONTHLY 04/14/24 History syringe (Nucala) montelukast 10 mg tablet 10 mg PO DAILY 04/14/24 12/22/24 History omeprazole 40 mg capsule,delayed 40 mg PO DAILY 04/14/24 12/22/24 History release prazosin 1 mg capsule 1 mg PO DAILY 04/14/24 12/22/24 History vitamin B complex (Vitamins B 1 cap PO DAILY 04/14/24 12/22/24 History Complex capsule) ziprasidone HCl 40 mg capsule 40 mg PO .QD 04/14/24 12/22/24 History tramadol 100 mg capsule 100 mg PO DAILY PRN pain #30 caps 10/30/24 12/22/24 Rx 24h,extended release(25-75) tramadol 50 mg tablet See Rx Instructions .Route 10/30/24 12/22/24 Rx .COMPLEX PRN pain #120 tabs fluticasone furoate 50 inhalation 11/24/24 History mcg-vilanterol 25 mcg/dose inhalation powder (Breo Ellipta) tramadol 100 mg tablet,extended 100 mg PO DAILY PRN pain #30 tabs 12/29/24 Rx release 24 hr tramadol 50 mg tablet See Rx Instructions .Route 12/29/24 Rx .COMPLEX PRN pain #120 tabs Allergies Allergy/AdvReac Type Severity Reaction Status Date / Time codeine Allergy Mild Hives Verified 12/22/24 09:49 ibuprofen Allergy Mild Hives Verified 12/22/24 09:49 ondansetron (From Zofran) Allergy Mild Hives Verified 12/22/24 09:49 naproxen (From Aleve) AdvReac Mild Vomiting Verified 12/22/24 09:49 Exam Constitutional Documenting provider has reviewed patient's vital signs: yes Common normals: no apparent distress, oriented x3, healthy appearing, alert and well nourished General appearance: cooperative [facility] Common normals: normocephalic, hearing grossly normal bilaterally and moist oral mucous membranes Head and scalp: normocephalic Eye Common normals: PERRL Pupil: PERRL Neck & C-Spine Common normals: full ROM General: normal visual inspection Chest Common normals: inspection of chest normal Respiratory Common normals: normal respiratory effort, no retractions and no use of accessory muscles Back & Pelvis Thoracic spine/upper back: thoracic ROM normal, pain with ROM and thoracic spinal tenderness; no paraspinal muscle tenderness and no paraspinal muscle spasm Other: positive facet loading pain increased T6-9 facets negative radiculopathy Neuro Common normals: oriented x3, CN's II-XII intact bilaterally, moves all extremities, no focal motor deficits, no sensory deficits noted and deep tendon reflexes 2+ bilaterally Sensorium/orientation: alert Motor exam: strength 5/5 throughout and no movement abnormalities noted Psych Common normals: mental status grossly normal, thought process normal, cooperative, affect normal, speech normal and activity/motor behavior normal Speech: normal speech Thought process: normal thought process Results Additional Findings Additional findings: If on a controlled substance or opioids, I have checked an [place] report on this patient and there are no aberrancies noted in the prescribing history.??If on a controlled substance or opioid a drug screen was completed and reviewed within the last year, and if there has not been a drug screen completed we ordered one today to monitor higher risk, state monitored pain medication use. As part of providing excellent, safe, comprehensive care, the following was completed at our patient's visit: 1. A medication reconciliation and review to ensure accurate knowledge of current/active medications, including asking our patients to inform us about any wius-dma-pildmef medications or herbal remedies/nutritional supplements/alternative remedies. 2. A review to specifically ensure our patients have had annual screening for screening for depression, screening for tobacco use, and screening for unhealthy alcohol use. For concerning screenings had a discussion with the patient, provided patient education, and recommended follow-up with primary care provider when appropriate. If patient noted with a risk of falling, they received education on strength, gait, and balance training to prevent future risk of falling. Portions of this note may have been carried over from the previous visit and updated as appropriate. Please note this office utilizes paper charting in addition to the electronic medical record. A list of current medications, vitals, and PMH is available there as the clinical staff outside of myself do not have access to [employer] charting during the clinic day operations. As part of providing quality comprehensive care the current medications, vitals, and PMH were reviewed in the paper chart. Assessment and Plan Assessment and Plan (1) Thoracic spondylosis: (2) Chronic use of opiate drug for therapeutic purpose: (3) Failed back syndrome: (4) Insomnia: (5) PTSD (post-traumatic stress disorder): (6) Chronic prescription benzodiazepine use: (7) Hypoglycemia: Assessment and Plan: during todays visit pt became diaphoretic, cool, and clammy. 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 Blood sugar dropped to 80 and pt turned off his insulin pump. he did not have lunch today, last ate around 7am and did not bring snacks or juice with him. pt does not have an emergency kit on hand, directed to obtain. we provided pt with juice, 5 lifesavers, and 1 cup of almonds as we had those available in the office and pts blood sugar stabilized. we notified his , who has notifications in place for his insulin pump should it alarm when patients reaches 70. pts blood sugar stabilized at >100, he felt stable and safe to drive. pt is going to get lunch prior to driving home Plan left then right T6,7 T7,8 facet medial branch RFA remains in healing phase risks vs benefits of current medication regimen discussed, patient has been on his current regimen for many years without side effects. patient has narcan available at home. Patient is on clonazepam 1/2-1mg HS due to chronic severe insomnia refractory to multiple medications and it is his only relief to assist in sleep. Patient has failed numerous non opioid medications and has had back surgery and spinal cord stimulator placed yet continues to have moderate to severe pain requiring opioids. continue current medication regimen continue f/u with [facility] for spinal cord stimulator setting adjustments PRN continue f/u with endocrinology and surgical team as planned f/u 2 months
== END 2025-01-22 13:04 | disposition home or self-care (01) ==
LOC: PM 13:03
PROVIDERS: PCP Nurse Practitioner Family; Visit Provider Nurse Practitioner
DX: M47.814 Spondylosis without myelopathy or radiculopathy, thoracic region (principal); Z79.891 Long term (current) use of opiate analgesic; M96.1 Postlaminectomy syndrome, not elsewhere classified; G47.00 Insomnia, unspecified; F43.10 Post-traumatic stress disorder, unspecified; Z79.899 Other long term (current) drug therapy; E16.2 Hypoglycemia, unspecified
CPT/HCPCS: G0463

== ENCOUNTER 2025-04-02 11:21 | Outpatient (OUT) | payer MEDICARE, MEDICAID, SELFPAY ==
--- OUTSIDE RECORDS SUMMARY | 2017-08-02 20:00 | XMS_ITS | Continuity of Care Document ---
Author Organization [employer] [facility] Address [address] [place] [address] Phone Care Team Providers Care Treasury Analyst Name Role Phone Unavailable Unavailable Unavailable Allergies, Adverse Reactions, Alerts Substance Reaction Status Criticality codeine GI problems Active No Information Medications Medication Instructions Dosage Effective Dates (start - stop) Status Comments clonazepam 1 mg tablet take 1 tablet by oral route 3 times every day 1 MG - Active Geodon 20 mg capsule take 1 capsule by oral route every day with food 20 MG - Active amitriptyline 25 mg tablet take 1 tablet by oral route every day at bedtime 25 MG - Active naproxen sodium 220 mg capsule - Active omeprazole 20 mg capsule,delayed release take 1 capsule by oral route every day 30 minutes to 1 hour before a meal 20 MG - Active Cipro 500 mg tablet take 1 tablet by oral route every 12 hours 500 MG - Active Flagyl 500 mg tablet take 1 tablet by oral route every 8 hours - Active tramadol 50 mg tablet take [...] Copied on Encounter OFFICE/OUTPAT IENT VISIT, EST [employer] [facility], [address] [place] [address], [id number], [place] tel:[phone] [facility] OP No Information 3201 7 No Information [facility] [employer] [facility], [address] [place] [address], [id number], [place] tel:[phone] [place] [address] OP No Information 7 No Information OFFICE/OUTPAT IENT VISIT, [employer], [address], [place], [id number], [place] tel:[phone] [place] [address] OP No Information 7 No [employer], [address], [place], [id number], [place] tel:[phone] [place] [address] OP No Information 7 No [employer], [address], [place], [id number], [place] tel:[phone] [place] [address] OP No Information 7 No Information OFFICE/OUTPAT IENT VISIT, [employer] [facility], [address], [place], [id number], [place] tel:[phone] [place] [address] OP No Information 7 No Information OFFICE/OUTPAT IENT VISIT, [employer], [address], [place], [id number], [place] tel:[phone] [place] [address] OP No Information 6 No Information [employer], [address], [place], [id number], [place] tel:[phone] [place] [address] OP No Information 6 No Information [employer], [address], [place], [id number], [place] tel:[phone] [place] [address] OP No Information 6 No Information [employer], [address], [place], [id number], [place] tel:[phone] [place] [address] OP No Information 6 No Information [employer], [address], [place], [id number], [place] tel:[phone] [place] [address] OP No Information 0- 6 No Information [employer], [address], [place], [id number], [place] tel:[phone] [place] [address] OP No Information 6 No Information OFFICE/OUTPAT IENT VISIT, [employer], [address], [place], [id number], [place] tel:[phone] [place] [address] OP No Information 6 No Information [employer], [address], [place], [id number], [place] tel:[phone] [place] [address] OP No Information 6 No [employer], [address], [place], [id number], [place] tel:[phone] [place] [address] OP No Information 6 No [employer], [address], [place], [id number], [place] tel:[phone] [place] [address] OP No Information 6 No Information OFFICE/OUTPAT IENT VISIT, [employer], [address], [place], [id number], [place] tel:[phone] [place] [address] OP No Information 6 No Information OFFICE/OUTPAT IENT VISIT, [employer], [address], [place], [id number], [place] tel:[phone] [place] [address] OP No Information 6 No Information [employer], [address], [place], [id number], [place] tel:[phone] [place] [address] OP No Information 6 No Information OFFICE/OUTPAT IENT VISIT, [employer], [address], [place], [id number], [place] tel:[phone] [place] [address] OP No Information 0 5 No Information OFFICE/OUTPAT IENT VISIT, [facility], [address], [place], [place], [id number], [place] tel:[phone] [facility] OP No Information No Information OFFICE/OUTPAT IENT VISIT, [facility], [address], [place], [place], [id number], [place] tel:[phone] [facility] c/o fever achey (chief complaint) Diverticulitis Devin Yeh. [address] [place], [place], [id number], [place]. tel:[phone] Referring Provider: Rao Frances, [address] [place], [address] . tel:[phone] Family History Family Member Type Diagnosis Age At Onset No Information Payers Payer name Insurance type Covered democrat ID Authoriza tion(s) Medicare MB [id number] Social History Type Description Quantity Date Captured Comments Sex Male Smoking Status No Information Chief Complaint And Reason For Visit No Information Reason For Referral Reason For Referral No Information History Of Present Illness Encounter Date Complaint History Of Prese nt Illness c/o fever achey The symptoms beg an 2 weeks ago. The symptoms are reported as being moderate. The symptoms occur constantly. He states the symptoms are acute and have worsened. pt has had a low grade temp,loose stools.pt has hx of diverticulitis,fatigue and feeling run down,low energy. c/o fever achey (comments) has h istory of diverticulosis and diverticulitis and he and his partner feel this illness seems very similar to his previous episodes of diverticulitis. Functional Status Date Functional Assessmen t No [...]
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
--- OUTSIDE RECORDS SUMMARY | 2024-06-10 05:45 | XMS_ITS ---
Author Organization [facility] Address [address] [place] [address] Care Team Providers Care Manufacturing Technology Analyst Name Role Phone Meg Lynn Primary Care Provider Bijan Herrera [phone] REASON FOR VISIT RC LEFT INDEX FINGER FX 7/5 Encounters Encounter Location Date Provider Diagnosis [facility] [place] [facility] [address] [address] 06/10/2024 Bijan Lal Plan Of Treatment No Information Progress Notes * ALIN LIGHT WDOB:0 1970 (54 yo M)Acc No.[id number]:06/10/2024 Patient: Leroy LEDBETTERALIN [place]ON Nick Provider: Scar Lal MD :1970 A ge:53 Y S ex:Male Date:06/10/2024 Address:[address] [place], [place] [phone] Pcp:Meg Lynn Subjective: * Chief Complaints: * 1 . RC LEFT INDEX FINGER FX 7/5. * Medical History: Objective: * Vitals: Assessment: Plan: * Treatment: Forms: * Images: * Electronic signature of Steve Lal MD on 04/02/2025 at 11:24 AM EDT Sign off status: Pending * Provider: Scar Lal MD Date: 0 06/10/2024 Generated for Joaquin quiles/Aria/eTransmitting on: 0 04/02/2025 11:24 AM EDT
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
--- OUTSIDE RECORDS SUMMARY | 2025-03-31 17:00 | XMS_ITS | Encounter Summary ---
Author Organization [facility] Address [facility] [place] [address] Care Team Providers Care Electromagnet Crane Operator Name Role Phone Wesly Davies MD Unavailable [phone] Wesly Davies MD Unavailable [phone] Meg Lynn APRN.[facility] Primary Care Provider Source Comments In the event this information is protected by the Federal Confidentiality of Alcohol and Drug AbusePatient Records regulations: The Federal rules restrict any use of the information to criminally investigate or prosecute any alcohol or drug abuse patient.[facility] Reason for Visit * Reason Comments Follow Up Encounter Details Date Type Department Care Team (Latest Contact Info) Description 03/31/2025 5:00 PM EDT [facility] Endocrinology [address] [place] [address] Kathy Bravo MD [address] [place] [address] Post-pancreatectomy diabetes (HCC) (Primary Dx); Insulin pump status Social History Tobacco Use Types Packs/Day Years Used Date Smoking Tobacco: Never Passive Smoke Exposure: Never Smokeless Tobacco: Never Alcohol Use Standard Drinks/Week Comments Not Currently 0 (1 standard drink = 0.6 oz pur e alcohol) [facility] Utilities Answer Date Recorded In the past 12 months has th e electric, gas, oil, or water company threatened to shut off services in your home? No 08/29/2024 Hunger Vital Sign Answer Date Recorded Within the past 12 months, y ou worried that your food would run out before you got the money to buy more. Never true 08/29/20 24 Within the past 12 months, t he food you bought just didn't last and you didn't have money to get more. Never true 08/29/2024 PRAPARE - Transportation Answer Date Re corded In the past 12 months, has l ack of transportation kept you from medical appointments or from getting medications? No 05/2024 In the past 12 months, has l ack of transportation kept you from meetings, work, or from getting things needed for daily living? No 08/29/2024 Housing Stability Vital Sign Answer Erik e Recorded In the last 12 months, was t here a time when you were not able to pay the mortgage or rent on time? No 08/29/2024 In the past 12 months, how m any times have you moved where you were living? 1 08/29/2024 At any time in the past 12 m [facility], were you homeless or living in a mcfp (including now)? No 08/29/2024 Area Deprivation Index Answer Date Wilfred rded National Score (1-100), lower number is lower ri sk 84 01/23/2025 State Score (1-10), lower number is lower risk 8 01/23/2025 Data from: https://www.neighborhoodatlas.medicine.[facility].edu/. Last address used for calculation [address] 01/23/2025 Sex and Gender Information Value Date Recorded Sex Assigned at Male 12/24/2024 10:21 AM EST Legal Sex Male 4:42 PM EDT Gender Identity Male 12/24/2024 10:21 AM EST Sexual Orientation Straight 12/24/2024 10 :21 AM EST documented as of this encounter Progress Notes * Kathy Bravo MD - 03/31/2025 5:03 PM EDT Images from the original note were not included. REASON FOR CONSULTATION: Pancreatic diabetes December 24, 2024 Virtual visit I have communicated my name and active licensure. The patient's identity and physical location wereverified at the time of this visit. Either the patient or their legal sales and service representative has been informed of the risks and benefits of -- and alternatives to -- treatment through a remote evaluation andconsents to proceed with the evaluation remotely. HISTORY Mr Thomas Petty is a 53 yo post pancreatectomy diabetes - some sulfur burps, EGD - just getting over bronchitis and sinus infection and had been on prednisone - he needs to wear the Dexcom on the L side or center - not usually hungry in the morning - for breakfast sandwich or TV dinner Approximate age at diagnosis of diabetes: 2021 Circumstances surrounding the diagnosis:blood work has type 1 diabetes Complications/comorbidities: No complications History of diabetes medications: none Current diabetes medications: Metformin 500 daily Meals and exercise: Mostly carb since staying away fat for IPMN Number of times glucose levels are to be checked: CGM Interpretation: post prandial high worst post breakfast still Sometimes a bit of low blood sugar PMH: T2DM, IPMN PSH: NA Social History Tobacco Use Smoking status: Never Passive exposure: Never Smokeless tobacco: Never Vaping Use Vaping status: Never Used Substance Use Topics Alcohol use: Not Currently Drug use: Never No family history on file. Current Outpatient Medications Medication Sig BAQSIMI 3 mg/actuation nasal spray USE 1 SPRAY IN THE NOSE NEEDED. MAY REPEAT AFTER 15 MINUTES USING A NEW DEVICE IF THERE IS NO RESPONSE. tramadol HCl (TRAMADOL ORAL) Take by mouth. insulin lispro (HUMALOG U-100 INSULIN) 100 unit/mL injection Use up to 70 units in insulin pump daily promethazine (PHENERGAN) 25 mg tablet Take 1 tablet by mouth every 8 hours as needed (for nausea). blood sugar diagnostic (BLOOD GLUCOSE TEST) test strip Use to check sugars 4 times daily. insulin lispro (HUMALOG KWIKPEN INSULIN) 100 unit/mL Inject 3 units three times daily with meals along with the sliding scale with meals and at bedtime: ?? If Blood Glucose (mg/dL) is: ?? Less than 110-Give 0 units ?? 111-150Give 0 units ?? 151-200Give 2 units ?? 201-250Give 4 units ?? 251-300Give 6 units ?? 301-350Give 8 units ?? 351-400Give 10 units ?? Greater than 400-Give 10 units and Notify [...] Ue up to 8 times a day glucose 4 gram chewable tablet Take 4 tablets by mouth as needed. Insulin [place], Disposable, (BD ULTRAFINE III MINI PEN) 31 gauge x 3/16 Use with insulin 5 times daily gidzne-kubybvio-flrzarq (CREON 36) 36,000-114,000- 180,000 unit delayed release capsule Take 3 capsby mouth 3 times daily with meals and [...] activated (albuterol sulfate) 2 puffs, Inhale, q6hr, PRN,# 1 EA, 0 Refill(s), Pharmacy: [address] amitriptyline (ELAVIL) 50 mg tablet Take 1 tablet by mouth daily at bedtime. amLODIPine (NORVASC) 2.5 mg tablet Take 1 tablet by mouth once daily. atorvastatin (LIPITOR) 40 mg tablet Take 1 tablet by mouth once daily. azelastine 0.1% nasal spray Use 1 Redgranite in each nostril two times a day. [...] submitted by the patient for this visit: Core Review of Systems (Submitted on 03/31/2025) Fever : No Night sweats: No Recent unintentional weight change: No Nasal Congestion: Yes Hearing Loss: Yes Vision Disturbance: No A cough: No Difficulty Breathing?: No Chest pain: No Irregular heartbeat: No Leg Swelling: No Nausea: Yes Diarrhea: Yes Black tarry stools: No Difficulty Urinating?: Yes Awaken at Night More Than Once to Urinate?: Yes Joint pain or stiffness: Yes Muscle aches: Yes Leg or Foot Discomfort at Night?: Yes A rash: No Dizziness: No Headaches: Yes Memory Loss: No Seizures: No PHYSICAL EXAMINATION There were no vitals taken for this visit. There is no height or weight on file to calculate BMI. Compared with October 31, 2024 and updated as appropriate Gen: well [...] there is good support ( has the e|tabtronic) - [employer] for supplies - iLet and humalog - sugars a bit worse with the steroids - will plan for changing supplies every 2 days - will bolus small breakfast for coffee - bolus a bit larger when he eats the bigger breakfast 3 month FU Kathy Bravo MD March 31, 2025 documented in this encounter Plan of Treatment Upcoming Encounters Date Type Department Care Team (Latest Contact Info) Description 04/10/2025 3:40 PM EDT [facility] Endocrinology [address] [place] [address] Kathy Bravo MD [address] [place] [address] April 10 virtual on cncer template, thanks! 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
--- OUTSIDE RECORDS SUMMARY | 2025-04-02 11:24 | XMS_ITS | Encounter Summary ---
Author Organization [facility] Address [address] [place] [address] Care Team Providers Care Group Controller Name Role Phone Meg Lynn APRN, CNP Primary Care Provid er Reason for Visit * Reason Comments Medication Refill Encounter Details Date Type Department Care Team (Late st Contact Info) Description 10/06/2019 Refill [facility] Medicine [address] [place] [address] Lillian Figueroa MD [address] [place] [address] Medication Refill Social History Tobacco Use Types Packs/Day Years Used Date Smoking Tobacco: Never Smokeless Tobacco: Never Alcohol Use Standard Drinks/Week Comments Yes 0 (1 standard drink = 0.6 oz pur e alcohol) on occasion PHQ-2 Answer Date Recorded PHQ-2 Score 0 01/22/2019 Sex and Gender Information Value Date Recorded Sex Assigned at Male 01/30/2025 6:24 AM EDT Legal Sex Male 12:14 AM EST Gender Identity Male 01/30/2025 6:24 AM EDT Sexual Orientation Straight 01/30/2025 6: 24 AM EDT documented as of this encounter Plan of Treatment Upcoming Encounters Date Type Department Care Team (Late st Contact Info) Description 08/20/2025 11:00 AM EDT Office Visit [facility] UROLOGY Part of [address] [place] [id number] Parvez Chatterjee MD [address], [address] [place] [address] one year PSA documented as of this encounter Visit Diagnoses Diagnosis Chronic bilateral back pain, unspecified back location documented in this encounter Additional Health Concerns Infection Onset Date Last Indicated Resolved Time C-diff Rule Out 06/21/2023 06/21/2023 06/21/2023 5 :12 PM EDT C-diff Rule Out 09/10/2023 09/10/2023 09/10/2023 5 :53 PM EST Influenza 12/24/2024 12/24/2024 01/03/2025 9:27 PM EDT documented as of this encounter Care Teams Group Controller Relationship Specialty Start Date End Date Meg Lynn, NATE - NAPHTHALENE STILL OPERATOR [address] [place] [address] PCP - General Certified Nurse Practitioner 04/23/23 documented as of this encounter
--- OUTSIDE RECORDS SUMMARY | 2025-04-02 11:24 | XMS_ITS | Encounter Summary ---
Author Organization [facility] Address [address] [place] [address] Care Team Providers Care Reporter Anchor Name Role Phone Wesly Davies MD Unavailable [phone] Wesly Davies MD Unavailable [phone] Meg Lynn APRN.[facility] Primary Care Provider Source Comments In the event this information is protected by the Federal Confidentiality of Alcohol and Drug AbusePatient Records regulations: The Federal rules restrict any use of the information to criminally investigate or prosecute any alcohol or drug abuse patient.[facility] Reason for Visit * Reason Comments CT Report Uploaded imaging Pushed (Frederic orlando) Received Outside Medical Records [facility] records uploaded Encounter Details Date Type Department Care Team (Late st Contact Info) Description 07/18/2024 Telephone General Surgery [address] [place] [phone] [place] [address] [place] [id number] CT Report (Uploaded ); imaging (Pushed (Frederic Lewis)); Received Outside Medical Records ([facility] records uploaded ) Social History Tobacco Use Types Packs/Day Years Used Date Smoking Tobacco: Never Assessed Area Deprivation Index Answer Date Wilfred rded National Score (1-100), lower number is lower ri sk 84 07/17/2024 State Score (1-10), lower number is lower risk 8 07/17/2024 Data from: https://www.neighborhoodatlas.medicine.[facility]/. Last address used for calculation [address] 07/17/2024 Sex and Gender Information Value Date Recorded Sex Assigned at Male 12/24/2024 10:21 AM EST Legal Sex Male 4:42 PM EDT Gender Identity Male 12/24/2024 10:21 AM EST Sexual Orientation Straight 12/24/2024 10 :21 AM EST documented as of this encounter Miscellaneous Notes * Telephone Encounter - Vickie Galindo - 07/18/2024 2:09 PM EDT Medical records uploaded ( Frederic Lewis) * Telephone Encounter - Vickie Galnido - 07/18/2024 12:45 PM EDT Report uploaded ([place]) * Telephone Encounter - Vickie Galindo - 07/18/2024 11:21 AM EDT Report uploaded & imaging pushed (Frederic Lewis) documented in this encounter Plan of Treatment Upcoming Encounters Date Type Department Care Team (Latest Contact Info) Description 04/10/2025 3:40 PM EDT [facility] [address] [place] [address] Kathy Bravo MD [address] [place] [address] April 10 340 virtual on cncer template, thanks! 07/07/2025 7:40 AM EDT [facility] Endocrinology [address] [place] [address] Kathy Bravo MD [address] [place], [place] [id number] Sept 16 740 virtual documented as of this encounter Visit Diagnoses Not on filedocumented in this encounter Care Teams Reporter Anchor Relationship Specialty Start Date End Date Meg Lynn, DIRECTOR [facility].BOX ORDER PERSON [address] [place] [address] PCP - General Family Medicine 08/15/24 Wesly Davies MD [address] [place] [address] Referring Gastroenterology 07/16/24 Wesly Davies MD [address] [place], [place] [phone] Referring Gastroenterology 07/25/24 documented as of this encounter
--- OUTSIDE RECORDS SUMMARY | 2025-04-02 11:24 | XMS_ITS | Encounter Summary ---
Author Organization [facility] Address [address] [place] [address] Care Team Providers Care Embedded Engineer Name Role Phone Wesly Davies MD Unavailable [phone] Wesly Davies MD Unavailable [phone] Meg Lynn APRN.[facility] Primary Care Provider Source Comments In the event this information is protected by the Federal Confidentiality of Alcohol and Drug AbusePatient Records regulations: The Federal rules restrict any use of the information to criminally investigate or prosecute any alcohol or drug abuse patient.[facility] Encounter Details Date Type Department Care Team (Late st Contact Info) Description 08/18/2024 Patient [facility] -[address] [place] [address] Jackelyn Jensen RPh At your next appointment, choose [facility]. Social History Tobacco Use Types Packs/Day Years Used Date Smoking Tobacco: Never Smokeless Tobacco: Never Alcohol Use Standard Drinks/Week Comments Not Currently 0 (1 standard drink = 0.6 oz pur e alcohol) Area Deprivation Index Answer Date Wilfred rded National Score (1-100), lower number is lower ri sk 84 07/17/2024 State Score (1-10), lower number is lower risk 8 07/17/2024 Data from: https://www.neighborhoodatlas.medicine.[facility]/. Last address used for calculation [address] 07/17/2024 Sex and Gender Information Value Date Recorded Sex Assigned at Male 12/24/2024 10:21 AM EST Legal Sex Male 4:42 PM EDT Gender Identity Male 12/24/2024 10:21 AM EST Sexual Orientation Straight 12/24/2024 10 :21 AM EST documented as of this encounter Plan of Treatment Upcoming Encounters Date Type Department Care Team (Latest Contact Info) Description 04/10/2025 3:40 PM EDT [facility] Endocrinology [address] [place] [id number] Kathy Bravo MD [address] [place] [address] April 10 virtual on cncer template, thanks! 07/07/2025 7:40 AM EDT [facility] Endocrinology [address] [place] [address] Kathy Bravo MD [address] [place] [place], [place] [id number] Jul 07 740 virtual documented as of this encounter Visit Diagnoses Not on filedocumented in this encounter Care Teams Embedded Engineer Relationship Specialty Start Date End Date Meg Lynn APRN.CNP [address] [place] [address] PCP - General Family Medicine 08/15/24 Wesly Davies MD [address] [place], [place] [phone] Referring Gastroenterology 07/16/24 Wesly Davies MD [address] [place], [place] [phone] Referring Gastroenterology 07/25/24 documented as of this encounter
--- OUTSIDE RECORDS SUMMARY | 2025-04-02 11:24 | XMS_ITS | Referral Summary ---
Author Organization [facility] Address [address] [place] [address] Care Team Providers Care Quotation Checker Name Role Phone Meg Lynn MD Primary Care Provider [phone] Allergies Active Allergy Reactions Criticality Noted Date Comments Codeine Hives,Nausea And Vomiting,Unknown High Ondansetron Hives,Nausea And Vomiting Medium 1 Medications albuterol sulfate (ProAir RespiClick) 90 mcg/actuation aerosol powdr breath activated 2 puffs, Inhale, q6hr, PRN, # 1 EA, 0 Refill(s), Pharmacy: [address] 03/25/2024 Active amitriptyline (Elavil) 50 mg tablet Take 1 tablet by mouth at bedtime. 01/23/2018 Active amLODIPine (Norvasc) 2.5 mg tablet Take 1 tablet by mouth in the morning. 10/31/2021 Active atorvastatin (Lipitor) 40 mg tablet Take 1 tablet by mouth in the morning. 01/03/2021 Active famotidine (Pepcid) 20 mg tablet Take 1 tablet by mouth in the morning and at bedtime. 02/08/2024 Active fenofibrate (Lofibra) 54 mg tablet Take 54 mg by mouth. 06/28/2022 Active ferrous sulfate 325 (65 Fe) MG tablet Take 325 mg by mouth with breakfast. 11/13/2023 Active fexofenadine (Kirsty) 180 mg tablet Take 1 tablet by mouth at bedtime. 10/31/2021 Active pancrelipase, Kyt-Ecsp-Qxbj, (Creon) 36,000-114,000- 180,000 unit capsule,delayed release(DR/EC) capsule Creon 66226 units oral delayed release capsule: TAKE 2 CAPSULES WITH MEALS (3 TIMES A DAY) AND 1 CAPSULE WITH SNACKS (1 DAILY). 01/31/2021 Active mepolizumab (Nucala) 100 mg/mL injection Inject 100 mg under the skin every 30 (thirty) days. Next dose 07/03/24 Active metFORMIN XR (Glucophage-XR) 500 mg 24 hr tablet Take 1 tablet by mouth with breakfast. 11/16/2023 Active montelukast (Singulair) 10 mg tablet 1 tablet Orally Once a day for 30 day(s) 01/03/2021 Active tamsulosin (Flomax) 0.4 mg 24 hr capsule Take 1 capsule by mouth in the morning. 06/16/2024 Active traMADol ER (Ultram-ER) 100 mg 24 hr tablet Take 100 mg by mouth 1 (one) time each day. 2pm 06/15/2023 Active ziprasidone (Geodon) 40 mg capsule Take 40 mg by mouth at bedtime. 2018 Active clonazePAM (KlonoPIN) 0.5 mg tablet Take 0.5 mg by mouth in the morning. 2 mg at h.s Active cholecalciferol (Vitamin D-3) 1,250 mcg (50,000 unit) capsule Take 50,000 Units by mouth 1 (one) time per week. 11/13/2023 Active prazosin (Minipress) 1 mg capsule Take 1 mg by mouth at bedtime. Active fluticasone furoate-vilante roL (Breo Elipta) 200-25 mcg/dose inhaler 01/17/2018 Active ergocalciferol (Vitamin D-2) 1.25 MG (56226 Units) capsule Take 50,000 Units by mouth every 7 (seven) days. 08/15/2021 Active b complex-vitamin c tablet Take 1 tablet by mouth in the morning. Active omeprazole (PriLOSEC) [address] capsule Take 40 mg by mouth before breakfast. Do not crush or chew. Active traMADol (Ultram) 50 mg tablet Take 100 mg by mouth two times daily. Active Social History Tobacco Use Types Packs/Day Years Used Date Smoking Tobacco: Never Smokeless Tobacco: Never Alcohol Use Standard Drinks/Week Comments Not Currently 0 (1 standard drink = 0.6 oz pur e alcohol) Sex and Gender Information Value Date Recorded Sex Assigned at Not on file Legal Sex Male 12:21 PM EDT Gender Identity Not on file Sexual Orientation Not on file Last Filed Vital Signs Vital Sign Reading Time Taken Comments Blood Pressure 111/72 06/26/2024 5:25 PM EDT Pulse 78 06/26/2024 5:25 PM EDT Temperature 36.3 C (97.3 F) 06/26/2024 5:25 PM EDT Respiratory Rate 18 06/26/2024 5:25 PM EDT Oxygen Saturation 98% 06/26/2024 5:25 PM EDT Inhaled Oxygen Concentration - - Weight 96.8 kg (213 lb 6.5 oz) 06/26/2024 1:32 P M EDT Height 177.8 cm (5' 10 ) 06/26/2024 1:32 PM EDT Body Mass Index 30.62 06/26/2024 1:32 PM EDT Plan of Treatment Not on file Insurance [place] [address] Care Teams Quotation Checker Relationship Specialty Start Date End Date Meg Lynn MD [address] [place] [address] PCP - General 06/26/24
--- OUTSIDE RECORDS SUMMARY | 2025-04-02 11:24 | XMS_ITS | Encounter Summary ---
Author Organization [employer] Address [id number] [address] [place] [address] Care Team Providers Care Wind Energy Engineer Name Role Phone Meg Lynn Primary Care Provider Encounter Details Date Type Department Care Team (Late st Contact Info) Description 07/30/2023 Telephone [facility] [address] [place] [phone] Sara Spaulding, SANT[place]H Social History Tobacco Use Types Packs/Day Years Used Date Smoking Tobacco: Never Smokeless Tobacco: Never Alcohol Use Standard Drinks/Week Comments Never 0 (1 standard drink = 0.6 oz pur e alcohol) Childcare Answer Date Recorded Childcare Unknown 03/31/2019 Employment Answer Date Recorded Employment Unknown 03/31/2019 Sex and Gender Information Value Date Recorded Sex Assigned at Not on file Legal Sex Male 12:02 PM EDT Gender Identity Not on file Sexual Orientation Not on file documented as of this encounter Plan of Treatment Not on file documented as of this encounter Visit Diagnoses Not on filedocumented in this encounter Care Teams Wind Energy Engineer Relationship Specialty Start Date End Date Meg Lynn APRN-CNP [address] [place] [address] PCP - General Nurse Practitioner 07/16/23 documented as of this encounter
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
--- OUTSIDE RECORDS SUMMARY | 2025-04-02 11:24 | XMS_ITS | Encounter Summary ---
Author Organization [facility] Address [address] [place] [address] Care Team Providers Care Director Clinical Data Name Role Phone Wesly Davies MD Unavailable [phone] Wesly Davies MD Unavailable [phone] Meg Lynn APRN.[facility] Primary Care Provider Source Comments In the event this information is protected by the Federal Confidentiality of Alcohol and Drug AbusePatient Records regulations: The Federal rules restrict any use of the information to criminally investigate or prosecute any alcohol or drug abuse patient.[facility] Encounter Details Date Type Department Care Team (Late st Contact Info) Description 07/25/2024 Patient Msg Gastroenterology [address] [address] Provider, [facility] Pre-Procedure Instructions for 07/28/24 EGD & EUS Social History Tobacco Use Types Packs/Day Years Used Date Smoking Tobacco: Never Assessed Area Deprivation Index Answer Date Wilfred rded National Score (1-100), lower number is lower ri sk 84 07/17/2024 State Score (1-10), lower number is lower risk 8 07/17/2024 Data from: https://www.neighborhoodatlas.medicine.[facility].edu/. Last address used for calculation [address] 07/17/2024 Sex and Gender Information Value Date Recorded Sex Assigned at Male 12/24/2024 10:21 AM EST Legal Sex Male 4:42 PM EDT Gender Identity Male 12/24/2024 10:21 AM EST Sexual Orientation Straight 12/24/2024 10 :21 AM EST documented as of this encounter Plan of Treatment Upcoming Encounters Date Type Department Care Team (Latest Contact Info) Description 04/10/2025 3:40 PM EDT [facility] Endocrinology [address] [place] [address] Kathy Bravo MD [address] [place], [place] [phone] April 10 340 virtual on cncer template, thanks! 07/07/2025 7:40 AM EDT [facility] Endocrinology [address] [place] [address] Kathy Bravo MD [address] [place] [address] Jul 07 740 virtual documented as of this encounter Visit Diagnoses Not on filedocumented in this encounter Care Teams Director Clinical Data Relationship Specialty Start Date End Date Meg Lynn APRN.MINE TECHNICIAN [address] [place] [address] PCP - General Family Medicine 08/15/24 Wesly Davies MD [address] [place] [address] Referring Gastroenterology 07/16/24 Wesly Davies MD [address] [place], [place] [phone] Referring Gastroenterology 07/25/24 documented as of this encounter
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
--- OUTSIDE RECORDS SUMMARY | 2025-04-02 11:24 | XMS_ITS | Encounter Summary ---
Author Organization [facility] Address [facility] [place] [address] Care Team Providers Care Room Service Waiter/Waitress Name Role Phone Wesly Davies MD Unavailable Wesly Davies MD Unavailable [phone] Meg Lynn APRN.[facility] Primary Care Provider Source Comments In the event this information is protected by the Federal Confidentiality of Alcohol and Drug AbusePatient Records regulations: The Federal rules restrict any use of the information to criminally investigate or prosecute any alcohol or drug abuse patient.[facility] Reason for Visit * Reason Comments Patient Question Pt calling because h e wants to know about the adjustment to the creon he supposed to have done per Ligia NÚÑEZ. Please give pt a call back Encounter Details Date Type Department Care Team (Late st Contact Info) Description 07/28/2024 Telephone [facility] [place] [address] [place] [address] [place], [place] [phone] Patient Question (Pt calling because he wants to know about the adjustment to the creon he supposed to have done per Ligia NÚÑEZ. Please give pt a call back ) Social History Tobacco Use Types Packs/Day Years Used Date Smoking Tobacco: Never Smokeless Tobacco: Never Alcohol Use Standard Drinks/Week Comments Not Currently 0 (1 standard drink = 0.6 oz pur e alcohol) Area Deprivation Index Answer Date Wilfred rded National Score (1-100), lower number is lower ri sk 84 07/17/2024 State Score (1-10), lower number is lower risk 8 07/17/2024 Data from: https://www.neighborhoodatlas.[facility]/. Last address used for calculation [address] 07/17/2024 Sex and Gender Information Value Date Recorded Sex Assigned at Male 12/24/2024 10:21 AM EST Legal Sex Male 4:42 PM EDT Gender Identity Male 12/24/2024 10:21 AM EST Sexual Orientation Straight 12/24/2024 10 :21 AM EST documented as of this encounter Miscellaneous Notes * Telephone Encounter - Vickie Galindo - 07/29/2024 3:25 PM EDT Pt is calling back about creon and test results please give pt a call back. Was told Ligia will speak with him about surgery date once she is in office next week. * Telephone Encounter - Vickie Galindo - 07/28/2024 4:19 PM EDT Pt calling because he wants to know about the adjustment to the creon he supposed to have done. Please give pt a call back documented in this encounter Plan of Treatment Upcoming Encounters Date Type Department Care Team (Latest Contact Info) Description 04/10/2025 3:40 PM EDT [facility] [address] [place] [address] Kathy Bravo MD [address] [place], [place] [phone] April 10 340 virtual on cncer template, thanks! 07/07/2025 7:40 AM EDT [facility] [address] [place] [address] Kathy Bravo MD [address] [place], [place] [phone] Sept 16 740 virtual documented as of this encounter Visit Diagnoses Not on filedocumented in this encounter Care Teams Room Service Waiter/Waitress Relationship Specialty Start Date End Date Meg Lynn, TURN OUT.FEED ADVISER [address] [place] [address] PCP - General Family Medicine 08/15/24 Wesly Davies MD [address] [place] [address] Referring Gastroenterology 07/16/24 Wesly Davies MD [address] [place] [address] Referring Gastroenterology 07/25/24 documented as of this encounter
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
--- OUTSIDE RECORDS SUMMARY | 2025-04-02 11:24 | XMS_ITS | Encounter Summary ---
Author Organization [facility] Address [address] [place] [address] Care Team Providers Care Compliance Professional Name Role Phone Wesly Davies MD Unavailable [phone] Wesly Davies MD Unavailable [phone] Meg Lynn APRN.[facility] Primary Care Provider Source Comments In the event this information is protected by the Federal Confidentiality of Alcohol and Drug AbusePatient Records regulations: The Federal rules restrict any use of the information to criminally investigate or prosecute any alcohol or drug abuse patient.[facility] Encounter Details Date Type Department Care Team (Late st Contact Info) Description 08/24/2024 Get Medical Advice General Surgery [address] [phone] [place] [address] [address] [phone] Vitamins and vaccination Social History Tobacco Use Types Packs/Day Years [...] is lower risk 8 07/17/2024 Data from: https://www.neighborhoodatlas.medicine.[facility].edu/. Last address used for calculation [address] 07/17/2024 Sex and Gender Information Value Date Recorded Sex Assigned at Male 12/24/2024 10:21 AM EST Legal Sex Male 4:42 PM EDT Gender Identity Male 12/24/2024 10:21 AM EST Sexual Orientation Straight 12/24/2024 10 :21 AM EST documented as of this encounter Plan of Treatment Upcoming Encounters Date Type Department Care Team (Latest Contact Info) Description 04/10/2025 3:40 PM EDT [facility] Endocrinology [address] [place] [address] Kathy Bravo MD [address] [place], [place] [phone] April 10 340 virtual on cncer template, thanks! 07/07/2025 7:40 AM EDT [facility] Endocrinology [address] [place] [address] Kathy Bravo MD [address] [place], [place] [phone] Jul 07 740 virtual documented as of this encounter Visit Diagnoses Not on filedocumented in this encounter Care Teams Compliance Professional Relationship Specialty Start Date End Date Meg Lynn APRN.OUTPATIENT ADMITTING CLERK [address] [place] [address] PCP - General Family Medicine 08/15/24 Wesly Davies MD [address] [place] [address] Referring Gastroenterology 07/16/24 Wesly Davies MD [address] [place] [address] Referring Gastroenterology 07/25/24 documented as of this encounter
--- OUTSIDE RECORDS SUMMARY | 2025-04-02 11:24 | XMS_ITS | Clinical Summary ---
Author Organization [facility] Address [id number] [place] [address] Care Team Providers Care Cab Worker Name Role Phone Meg yLnn NATE-COMBINATION PRESSER Primary Care Provider Allergies Active Allergy Reactions Criticality Noted Date Comments Acetaminophen-Codeine Hives,Other (See Comments) 10/30/2023 Codeine 07/23/2023 Ibuprofen Other (See Comments),Diarrhea Low 2023 Ondansetron Hcl Anaphylaxis High 07/21/2019 Medications atorvastatin (LIPITOR) 40 mg tablet Take 1 tablet (40 mg total) by mouth in the morning. Active amitriptyline (ELAVIL) 50 mg tablet Take 1 tablet (50 mg total) by mouth nightly. Active lipase/protease /amylase (CREON ORAL) Take by mouth. Activ e montelukast (SINGULAIR) 10 mg tablet Take 1 tablet (10 mg total) by mouth nightly. Active omeprazole (PriLOSEC) 40 mg capsule Take 1 capsule (40 mg total) by mouth in the morning. Active fenofibrate (LOFIBRA) 54 mg tablet Take 1 tablet (54 mg total) by mouth in the morning. Active ergocalciferol (DRISDOL) 1,250 mcg (50,000 unit) capsule Take 1 capsule (50,000 Units total) by mouth once a week. Active ferrous sulfate 325 (65 FE) mg tablet Take 1 tablet (325 mg total) by mouth daily with breakfast. Active B-complex with vitamin C tablet Take 1 tablet by mouth in the morning. Active mepolizumab (NUCALA SUBQ) Inject under the skin. Active prazosin (MINIPRESS) 1 mg capsule Take 1 capsule (1 mg total) by mouth nightly. Active clonazePAM (KlonoPIN) 0.5 mg tablet Take 1 tablet (0.5 mg total) by mouth as needed for anxiety. Active naloxone (NARCAN) 4 mg/actuation spray,non-aeros ol nasal spray Administer 1 spray (4 mg total) into alternating nostrils as needed for opioid reversal. 1 each 1 3 Active traMADoL (ULTRAM) 50 mg tabletIndicatio ns:Postlaminect elbert syndrome, lumbar region Take 1-2 tabs po bid prn. Fill date 04/09/2024 84 tablet 4 Active albuterol (PROVENTIL HFA;VENTOLIN HFA) 90 mcg/actuation inhaler Inhale 2 puffs every 4 (four) hours as needed for wheezing or shortness of breath. 4 Active XHANCE 93 mcg/actuation aerosol breath activated Inhale 1 puff in the morning. 4 Active BREO ELLIPTA 200-25 mcg/dose blister with device Inhale 1 puff in the morning and 1 puff before bedtime. 4 Active amLODIPine (NORVASC) 2.5 mg tablet Take 1 tablet (2.5 mg total) by mouth in the morning. 4 Active clonazePAM (KlonoPIN) 1 mg tablet Take 1 tablet (1 mg total) by mouth nightly. 4 Active CREON 36,000-114,000- 180,000 unit capsule,delayed release(DR/EC) Take 2 capsules (72,000 units of lipase total) by mouth in the morning and 2 capsules (72,000 units of lipase total) at noon and 2 capsules (72,000 units of lipase total) in the evening. Take with meals. TAKE 2 CAPSULES BY MOUTH WITH MEALS AND THEN 1 CAP WITH SNACKS.. 4 Active NUCALA 100 mg/mL syringe Inject 1 mL (100 mg total) under the skin every 30 (thirty) days. 4 Active metFORMIN XR (GLUCOPHAGE XR) 500 mg 24 hr tablet Take 1 tablet (500 mg total) by mouth daily with breakfast. 4 Active ziprasidone (GEODON) 40 mg capsule Take 1 capsule (40 mg total) by mouth once daily at bedtime. 4 Active Active Problems Problem Noted Date Diagnosed Date Chronic pancreatitis 05/24/2024 Pancreatic duct obstruction 05/24/2024 GERD (gastroesophageal reflux disease) Postlaminectomy syndrome, lumbar region 12/24/19 Encounter for long-term opiate analgesic use 01/2024 Thoracic spondylosis without myelopathy 11/06/19 Thoracic spondylosis 09/26/2023 Sacroiliitis 07/23/2023 Exocrine pancreatic insufficiency 03/29/2023 Hypertriglyceridemia 03/29/2023 Chronic low back pain 11/23/2022 Type 2 diabetes mellitus wit hout complication, without long-term current use of insulin 09/05/2022 Bipolar 1 disorder 09/04/2022 Diabetes mellitus 09/04/2022 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[facility] 09/13/2021 Posttraumatic stress disorder 01/26/2020 Chronic anxiety 10/31/2002 Immunizations Immunization Administration Dates Next Due Influenza, Injectable, Mdck, Preservative Free, Quad 08/13/2023 Influenza, Injectable, Quadrivalent 10/01/2017 Influenza, Injectable, quadr ivalent (PF) 06/29/2020,08/01/2019,09/17/2018 Influenza, Unspecified 08/14/2023,08/17/2016 Pneumococcal Conjugate 13-Valent 017,07/07/2017,01/17/2017,11/01 Pneumococcal Polysaccharide 01/17/2017, 7 Tdap 12/07/2013 Zoster Vaccine Recombinant 08/07/2020,06/05/2020 Social History Tobacco Use Types Packs/Day Years Used Date Smoking Tobacco: Never Smokeless Tobacco: Never Tobacco Cessation:Counseling Given: Not Answered Alcohol Use Standard Drinks/Week Comments Never 0 (1 standard drink = 0.6 oz pur e alcohol) [facility] Utilities Answer Date Recorded In the past 12 months has [employer], gas, oil, or water [employer] threatened to shut off services in your home? No 05/24/2024 AUDIT-C Answer Date Recorded Q1: How often do you have a drink containing alcohol? Never 05/24/2024 Q2: How many drinks containi ng alcohol do you have on a typical day when you are drinking? Patient does not drink Q3: How often do you have si x or more drinks on one occasion? Never 05/24/2024 PHQ-2 Answer Date Recorded Total Score 0 05/24/2024 PRAPARE - Transportation Answer Date Re corded In the past 12 months, has l ack of transportation kept you from medical appointments or from getting medications? No 12/2023 In the past 12 months, has l ack of transportation kept you from meetings, work, or from getting things needed for daily living? No 05/24/2024 Housing Instability Answer Date Recorde d Are you worried or concerned that in the next two months you may not have stable housing that you own, rent or stay in as a part of a household? No 05/24/2024 Childcare Answer Date Recorded Childcare Unknown 03/31/2019 Employment Answer Date Recorded Employment Unknown 03/31/2019 Hunger Screening Answer Date Recorded Within the past 12 months we worried whether our food would run out before we got money to buy more. Never True 05/24/2024 Within the past 12 months th e food we bought just didn't last and we didn't have money to get more. Never True 05/24/2024 Sex and Gender Information Value Date Recorded Sex Assigned at Not on file Legal Sex Male 12:02 PM EDT Gender Identity Not on file Sexual Orientation Not on file Last Filed Vital Signs Vital Sign Reading Time Taken Comments Blood Pressure 115/73 05/24/2024 12:43 PM EDT Pulse 59 05/24/2024 12:43 PM EDT Temperature 36.8 C (98.2 F) 05/24/2024 12:43 PM EDT Respiratory Rate 17 05/24/2024 12:4 3 PM EDT Oxygen Saturation 95% 05/24/2024 12: 43 PM EDT Inhaled Oxygen Concentration - - Weight 95.1 kg (209 lb 10.5 oz) 05/24/2024 5:00 AM EDT Height 177.8 cm (5' 10 ) 05/24/2024 5:00 AM EDT Body Mass Index 30.08 05/24/2024 5:00 AM EDT Plan of Treatment Health Maintenance Due Date Last Done Comments Diabetic Ophthalmology Exam 1969 Adult BMI Follow Up Plan 1987 Diabetic Foot Exam 1987 DTaP,Tdap and Td Vaccines (2 - Td or Tdap) 12/07/2023 12/07/2013 COVID-19 Vaccine (5 - 2023-2 5 season) 2024 07/14/2023, 07/07/2021, 02/01/2021, Additional history exists Adult BMI Screening 05/24/2025 05/24/2024 Depression Screening 05/24/2025 05/24/2024 Tobacco Screening 05/24/2025 05/24/2024 Influenza Vaccine 06/22/2025 08/14/2023, , 06/29/2020, Additional history exists Zoster (Shingles) Vaccine Completed 08/07/2020, Medical Devices Implanted Type Area Motor Assembler Device Identifier Shelf Expiration Date Model / Serial / Lot Right Jhip, Fa, And Chest, Also Scs Insurance Advance Directives * Full Code (Latest Code Status on File) Date Activated Date Inactivated Comments 05/24/2024 4:44 AM 05/24/2024 7:04 PM Care Teams Cab Worker Relationship Specialty Start Date End Date Meg Lynn APRN-COMBINATION PRESSER [address] [id number] PCP - General Nurse Practitioner 07/16/23
--- OUTSIDE RECORDS SUMMARY | 2025-04-02 11:24 | XMS_ITS | Clinical Summary ---
Author Organization [facility] Address [address] [place] [address] Care Team Providers Care Radial Router Operator Name Role Phone Meg Lynn MD Primary Care Provider [phone] Allergies Active Allergy Reactions Criticality Noted Date Comments Codeine Hives,Nausea And Vomiting,Unknown High Ondansetron Hives,Nausea And Vomiting Medium 1 Medications albuterol sulfate (ProAir RespiClick) 90 mcg/actuation aerosol powdr breath activated 2 puffs, Inhale, q6hr, PRN, # 1 EA, 0 Refill(s), Pharmacy: [address] 03/25/2024 Active amitriptyline (Elavil) 50 mg [...] by mouth at bedtime. 10/31/2021 Active pancrelipase, Eeu-Ijmz-Qhyt, (Creon) 36,000-114,000- 180,000 unit capsule,delayed release(DR/EC) capsule Creon 23545 units oral delayed release capsule: TAKE 2 [...] 01/17/2018 Active ergocalciferol (Vitamin D-2) 1.25 MG (66739 Units) capsule Take 50,000 Units by mouth [...] 06/26/2024 1:32 PM EDT Plan of Treatment Health Maintenance Due Date Last Done Comments CT Colonography 1969 Diabetes: Hemoglobin A1C 1969 FIT-DNA 1969 FOBT 1969 Medicare Annual Wellness (AWV) 1969 Sigmoidoscopy 1969 Diabetes: Retinopathy Screening 1979 Depression Screening 1981 Diabetes: Urine Protein Screening 1988 Hepatitis B Vaccines (1 of 3 - 19+ 3-dose series) 1988 Pneumococcal Vaccine: Pediatrics (0 to 5 Years) and At-Risk Patients (6 to 64 Years) (3 of 3 - PCV20 or PCV21) 08/06/2022 08/06/2017, 07/07/2017, 01/17/2017, Additional history exists Adult Tetanus 12/07/2023 12/07/2013 FIT 05/30/2024 05/30/2023 COVID-19 Vaccine ( season) 2024 07/14/2023, 07/07/2021, 02/01/2021, Additional history exists Influenza Vaccine (Season Ended) 2025 08/14/2023, 08/13/2023, 06/29/2020, Additional history exists Colonoscopy 10/02/2033 10/02/2023 Colorectal Cancer Screening 10/02/2033 Zoster Vaccines Completed 08/07/2020, 06/05/2020 HIB Vaccines Aged Out No longer eligi ble based on patient's age to complete this topic HPV Vaccines Aged Out No longer eligi ble based on patient's age to complete this topic IPV Vaccines Aged Out No longer eligi ble based on patient's age to complete this topic Meningococcal B Vaccine Aged Out No l onger eligible based on patient's age to complete this topic Meningococcal Vaccine Aged Out No thaddeus louise eligible based on patient's age to complete this topic Rotavirus Vaccines Aged Out No longer eligible based on patient's age to complete this topic Insurance [employer] MEDICARE [place] [id number] Care Teams Radial Router Operator Relationship Specialty Start Date End Date Meg Lynn MD [address] [place] [address] PCP - General 06/26/24
--- OUTSIDE RECORDS SUMMARY | 2025-04-02 11:24 | XMS_ITS | Encounter Summary ---
Author Organization [facility] Address [address] [place] [address] Care Team Providers Care Nurse'S Companion Name Role Phone Wesly Davies MD Unavailable [phone] Wesly Davies MD Unavailable [phone] Meg Lynn APRN.[facility] Primary Care Provider Source Comments In the event this information is protected by the Federal Confidentiality of Alcohol and Drug AbusePatient Records regulations: The Federal rules restrict any use of the information to criminally investigate or prosecute any alcohol or drug abuse patient.[facility] Encounter Details Date Type Department Care Team (Late st Contact Info) Description 08/24/2024 Get Medical Advice General Surgery [address] [id number] [place] [address] [address] [phone] Nucala Infusion injection Social History Tobacco Use Types Packs/Day Years [...] is lower risk 8 07/17/2024 Data from: https://www.neighborhoodatlas.medicine.[facility].edu/. Last address used for calculation [address] [...] Contact Info) Description 04/10/2025 3:40 PM EDT [facility] Endocrinology [address] [place] [address] Kathy Bravo MD [address] [place], [place] [phone] April 10 340 virtual on cncer template, thanks! 07/07/2025 7:40 AM EDT [facility] Endocrinology [address] [place] [address] Kathy Bravo MD [address] [place], [place] [id number] Jul 07 740 virtual documented as of this encounter Visit Diagnoses Not on filedocumented in this encounter Care Teams Nurse'S Companion Relationship Specialty Start Date End Date Meg Lynn, NATE.DISPLAY DESIGNER [address] [place] [address] PCP - General Family Medicine 08/15/24 Wesly Davies MD [address] [place] [address] Referring Gastroenterology 07/16/24 Wesly Davies MD [address] [place] [address] Referring Gastroenterology 07/25/24 documented as of this encounter
--- OUTSIDE RECORDS SUMMARY | 2025-04-02 11:24 | XMS_ITS | Encounter Summary ---
Author Organization [facility] Address [address] [place] [address] Care Team Providers Care Bed Teacher Name Role Phone Wesly Davies MD Unavailable [phone] Wesly Davies MD Unavailable [phone] Meg Lynn APRN.[facility] Primary Care Provider Source Comments In the event this information is protected by the Federal Confidentiality of Alcohol and Drug AbusePatient Records regulations: The Federal rules restrict any use of the information to criminally investigate or prosecute any alcohol or drug abuse patient.[facility] Reason for Visit * Reason Comments report Radiology reports up loaded ([facility]) imaging Pushed Encounter Details Date Type Department Care Team (Late st Contact Info) Description 07/21/2024 Telephone General Surgery [address] [place] [address] [phone] [place] [address] [place], [place] [phone] report (Radiology reports uploaded ([facility])); imaging (Pushed ) Social History Tobacco Use Types Packs/Day Years Used Date Smoking Tobacco: Never Assessed Area Deprivation Index Answer Date Wilfred rded National Score (1-100), lower number is lower ri sk 84 07/17/2024 State Score (1-10), lower number is lower risk 8 07/17/2024 Data from: https://www.neighborhoodatlas.medicine.[facility].edu/. Last address used for calculation [address] 07/17/2024 Sex and Gender Information Value Date Recorded Sex Assigned at Male 12/24/2024 10:21 AM EST Legal Sex Male 4:42 PM EDT Gender Identity Male 12/24/2024 10:21 AM EST Sexual Orientation Straight 12/24/2024 10 :21 AM EST documented as of this encounter Miscellaneous Notes * Telephone Encounter - Vickie Galindo - 07/21/2024 4:54 PM EDT Radiology reports uploaded ([facility]) Imaging pushed documented in this encounter Plan of Treatment Upcoming Encounters Date Type Department Care Team (Latest Contact Info) Description 04/10/2025 3:40 PM EDT [facility] Endocrinology [address] [phone] Kathy Bravo MD [address] [place] [address] April 10 virtual on cncer template, thanks! 07/07/2025 7:40 AM EDT [facility] Endocrinology [address] [place] [address] Kathy Bravo MD [address] [place] [address] Jul 07 740 virtual documented as of this encounter Visit Diagnoses Not on filedocumented in this encounter Care Teams Bed Teacher Relationship Specialty Start Date End Date Meg Lynn APRN.ELECTRICAL PROSPECTING SUPERVISOR [address] [place] [address] PCP - General Family Medicine 08/15/24 Wesly Davies MD [address] [facility] [place], [place] [id number] Referring Gastroenterology 07/16/24 Wesly Davies MD [address] [place] [place] [address] Referring Gastroenterology 07/25/24 documented as of this encounter
--- OUTSIDE RECORDS SUMMARY | 2025-04-02 11:25 | XMS_ITS | Encounter Summary ---
Author Organization [facility] Address [address] [place] [address] Care Team Providers Care Branch Officer Name Role Phone Wesly Davies MD Unavailable [phone] Wesly Davies MD Unavailable [phone] Meg Lynn APRN.[facility] Primary Care Provider Source Comments In the event this information is protected by the Federal Confidentiality of Alcohol and Drug AbusePatient Records regulations: The Federal rules restrict any use of the information to criminally investigate or prosecute any alcohol or drug abuse patient.[facility] Encounter Details Date Type Department Care Team (Late st Contact Info) Description 02/18/2025 Get Medical Advice Endocrinology [address] [place] [address] Kathy Bravo MD [address] [place] [address] Group critical illness claim form Social History Tobacco Use Types Packs/Day Years Used Date Smoking Tobacco: Never Passive Smoke Exposure: Never Smokeless Tobacco: Never Alcohol Use Standard Drinks/Week Comments Not Currently 0 (1 standard drink = 0.6 oz pur e alcohol) [facility] Utilities Answer Date Recorded In the past 12 months has th e electric, gas, oil, or water [employer] threatened to shut off services in your [...] any time in the past 12 m [facility], were you homeless or living in a detention (including now)? No 08/29/2024 Area Deprivation Index Answer Date Wilfred rded National Score (1-100), lower number is lower ri sk 84 01/23/2025 State Score (1-10), lower number is lower risk 8 01/23/2025 Data from: https://www.neighborhoodatlas.medicine.[facility].edu/. Last address used for calculation [address] [...] 04/10/2025 3:40 PM EDT [facility]inology [address] [place] [address] Kathy Bravo MD [address] [place] [address] April 10 virtual on cncer template, thanks! 07/07/2025 7:40 AM EDT [facility] Endocrinology [address] [place] [address] Kathy Bravo MD [address] [place] [address] Jun 16 740 virtual documented as of this encounter Visit Diagnoses Not on filedocumented in this encounter Care Teams Branch Officer Relationship Specialty Start Date End Date Meg Lynn, INSURANCE UNDERWRITER.MEDICAL STAFF PHYSICIAN [address] [place] [address] PCP - General Family Medicine 08/15/24 Wesly Davies MD [address] [place] [address] Referring Gastroenterology 07/16/24 Wesly Davies MD [address] [place] [address] Referring Gastroenterology 07/25/24 documented as of this encounter
--- OUTSIDE RECORDS SUMMARY | 2025-04-02 11:25 | XMS_ITS | Clinical Summary ---
Author Organization [facility] Address [address] [place], [place] [id number] Care Team Providers Care Operator Specialist Communications Name Role Phone Wesly Davies MD Unavailable [phone] Wesly Davies MD Unavailable [phone] Meg Lynn APRN.NEUROLOGY PHYSICIAN Primary Care Provider Allergies Active Allergy Reactions Criticality Noted Date Comments Codeine Hives 07/28/2024 Ondansetron Hives 07/28/2024 Medications VENTOLIN HFA 90 mcg/actuation inhaler Inhale 1 Puff as instructed every 6 hours as needed. 1 Active albuterol (PROVENTIL) 2.5 mg /3 mL (0.083 %) nebulizer solution Use 2.5 mg via nebulizer every 4 hours as needed. 4 Active ProAir RespiClick 90 mcg/actuation breath activated (albuterol sulfate) 2 puffs, Inhale, q6hr, PRN, # 1 EA, 0 Refill(s), Pharmacy: [place] [address] [address] [facility]. 4 Active amitriptyline (ELAVIL) 50 mg tablet Take 1 tablet by mouth daily at bedtime. 8 Active amLODIPine (NORVASC) 2.5 mg tablet Take 1 tablet by mouth once daily. 2 Active atorvastatin (LIPITOR) 40 mg tablet Take 1 tablet by mouth once daily. 1 Active azelastine 0.1% nasal spray Use 1 [place] in each nostril two times a day. Active B-complex with vitamin C (ALLBEE WITH C) tablet Take 1 tablet by mouth every morning. Active cholecalcifero l, Vitamin D3, (VITAMIN D3) 1,250 mcg (50,000 unit) cap capsule Take 50,000 Units by mouth. 4 Active clonazePAM (KLONOPIN) 0.5 mg tablet Take 0.5 mg by mouth two times a day as needed. Active omeprazole (PRILOSEC) 40 mg capsule Take 40 mg by mouth once daily. 1 Active promethazine (PHENERGAN) 25 mg tablet Take 1 tablet by mouth every 6 hours as needed. 1 Active tamsulosin (FLOMAX) 0.4 mg Take 1 capsule by mouth every morning. Active ziprasidone (GEODON) 40 mg capsule Take 1 capsule by mouth every evening. 9 Active Zinc Gluconate 30 mg tab Take by mouth. Activ e naloxone 4 mg/actuation nasal spray (NARCAN) Use 4 mg in the nose at bedtime as needed. 3 Active mepolizumab injection 100 mg (NUCALA) Inject 100 mg subcutaneously once every month. Active fluticasone-vi lanterol (BREO ELLIPTA) 200-25 mcg/dose inhaler Inhale 1 Inhalation as instructed once daily. Active XHANCE 93 mcg/actuation nasal spray Use 93 mcg in the nose two times a day. 1 Active fexofenadine (CHAKA) 60 mg tablet Take 60 mg by mouth every 12 hours. Active Fenofibrate (LOFIBRA) 54 mg tablet Take 1 tablet by mouth once daily. 2 Active ferrous sulfate 325 mg (65 mg iron) tablet Take 325 mg by mouth once daily. 4 Active montelukast (SINGULAIR) 10 mg tablet Take 10 mg by mouth once daily. Active lipase-proteas e-amylase (CREON 36) 36,000-114,000 - 180,000 unit delayed release capsule Take 3 caps by mouth 3 times daily with meals and 1 cap with each snack (2) 330 capsule 11 4 Active Blood-Glucose MeterIndicatio ns:Post-pancre atectomy diabetes (HCC) Use to check sugars once a day 1 Each 4 Active LancetsIndicat ions:Post-panc reatectomy diabetes (HCC) Use to check sugars once daily 100 Each 1 4 Active alcohol swabs (ALCOHOL WIPES)Indicati ons:Post-pancr eatectomy diabetes (HCC) Ue up to 8 times a day 800 Each 1 4 Active glucose 4 gram chewable tabletIndicati ons:Post-pancr eatectomy diabetes (HCC) Take 4 tablets by mouth as needed. 100 tablet 1 4 Active Insulin Soper, Disposable, (BD ULTRAFINE III MINI PEN) 31 gauge x / Indicatio ns:Post-pancre atectomy diabetes (HCC) Use with insulin 5 times daily 500 Each 1 4 Active prazosin HCl (PRAZOSIN ORAL) Take 1 mg by mouth daily at bedtime. Active insulin lispro (HUMALOG KWIKPEN INSULIN) 100 unit/mLIndicat ions:Post-panc reatectomy diabetes (HCC) Inject 3 units three times daily with meals along with the sliding scale with meals and at bedtime: If Blood Glucose (mg/dL) is: Less than 110-Give 0 units 111-150Give 0 units 151-200Give 2 units 201-250Give 4 units 251-300Give 6 units 301-350Give 8 units 351-400Give 10 units Greater than 400-Give 10 units and Notify Provider 15 mL 1 4 Active acetaminophen (TYLENOL) 325 mg tablet Take 2 tablets by mouth every 6 hours as needed for pain. 4 Active bisacodyl (DULCOLAX) 10 mg supp 1 Suppository by RECTAL route once daily as needed for constipation. 4 Active magnesium hydroxide (MOM) 400 mg/5 mL suspension Take 30 mL by mouth once daily as needed for constipation. 210 mL [address] (PROTONIX) 40 mg tablet Take 1 tablet by mouth once daily. 30 tablet 2 4 Active polyethylene glycol 3350 17 gram packet Take 1 Packet by mouth once daily as needed for constipation (Second line). Dissolve dose in 4 - 8 ounces of liquid and take as directed. 7 Packet 4 Active insulin glargine 100 unit/mL (3 mL) Inject 16 Units subcutaneously daily at bedtime. 14.4 mL 4 Active blood sugar diagnostic (BLOOD GLUCOSE TEST) test stripIndicatio ns:Post-pancre atectomy diabetes (HCC) Use to check sugars 4 times daily. 200 Strip 1 4 Active promethazine (PHENERGAN) 25 mg tabletIndicati ons:Nausea Take 1 tablet by mouth every 8 hours as needed (for nausea). 90 tablet 2 4 Active insulin lispro (HUMALOG U-100 INSULIN) 100 unit/mL injectionIndic ations:Post-pa ncreatectomy diabetes (HCC) Use up to 70 units in insulin pump daily 70 mL 1 5 Active tramadol HCl (TRAMADOL ORAL) Take by mouth. Activ e BAQSIMI 3 mg/actuation nasal sprayIndicatio ns:Post-pancre atectomy diabetes (HCC) USE 1 SPRAY IN THE NOSE NEEDED. MAY REPEAT AFTER 15 MINUTES USING A NEW DEVICE IF THERE IS NO RESPONSE. 2 each 1 5 Active Active Problems Patient Care Coordination No te Formatting of this note migh t be different from the original. Indication for Surgery: Chronic Pancreatitis Pancreatic neoplasm Important/Relevant PMH/PSH: asthma, bipolar 1 disorder, HTN, chronic pain disorder, Chronic pancreatitis, DM2, GERD, Pancreatic cyst, sacroiliitis, eosinophilic granulomatosis with poly angitis, and PTSD. Of note, recent CT with concern for intraductal papillary mucinous neoplasm. Preoperative Hospital Course: (narrative or log of major events) This is a 53yo male that presents for surgical management of chronic pancreatitis. Admitted to SICU for postoperative management. 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 Bilateral TAP blocks Major Events within past 24 hours: NAEO A/P of Major Active Problems (excluding routine care and common problems): Neuro: Post op pain, chronic pain -chronic opioid use at home, tramadol 100 mg - on COLLEGE INTERN with dilaudid 0.2 mg demand bolus 6 boluses/hr q 10 minutes - has prn dilaudid 0.5 mg q3h prn for breakthrough pain - liquid roxicodone 5 mg corpak q4h prn -multimodal pain regimen - home tramadol restarted CV: HTN, Tachycardia - tachycardic HR 100s (likely due to acute blood loss anemia and pain,improved from before) - Lactate normalized - home amlodipine 2.5 mg, atorvastatin 40 mg Resp: Acute post-operative resp insufficiency, and Asthma H/o Eosinophilic asthma, with previous episodes of bronchitis and pneumonia. On Nucala injections and inhalers per immunology / pulmonology. Well controlled, no recent flares. -aggressive BPH/IS/PEP/OOB -resume home meds, taking Breo Ellipta at home -2L NC 97% this AM GI: Chronic Pancreatitis, Moderate Protein-Calorie Malnutrition, Dong's esophagus, hyperlipidemia EGD 07/28/24 with Esophageal mucosal changes secondary to established long- segment Dong's disease. On omeprazole, asymptomatic. - Advancing TFs to 20 ml/hr -NGT to LIWS - DO NOT MANIPULATE . Monitor output Q4 hrs -NO CRUSHED MEDS VIA CORPAK - LIQUID ONLY -Continue IV pantoprazole -Nutrition consulted -suppository per primary for BM - 2x BM -TF held 08/30 ON due to nausea - restart this AM, 10 mL/hour Heme: Acute Blood Loss Anemia -transfuse for hemoglobin < 7 - continue to monitor CBC - Hold SQ heparin - will resume after stable morning labs Infectious Disease: Post pancreatectomy and splenectomy -completed periop antibiotics, Ceftriaxone 2 g daily -will need vaccines prior per ID - transient leukocytosis WBC 117- elevated in setting of splenectomy - MRSA negative - Intra-op fungal culture and smear negative - Anaerobe culture negative Endo: Type II diabetes, Total pancreatitis Well controlled diabetes with A1C 6.1 01/2024. At home, insulin and metformin. -Endo consulted - Transitioned from ggt to SQ insulin Nutrition: advance diet as tolerated Daily Plan Summary and Significant Findings or Concerns: - hgb this AM - resume/advance TF - watch for nausea Barriers to transfer out of ICU: none Disposition: SICU Problem Noted Date Diagnosed Date Primary hypertension 09/01/2024 Assessment & Plan (09/03/2024 10:35 AM EST): Assessment: Stable on amlodipine PLAN: -Continue amlodipine -Q4hr vitals Assessment & Plan (09/02/2024 7:09 AM EST): Assessment: Stable on amlodipine PLAN: -Continue amlodipine -Q4hr vitals Assessment & Plan (09/01/2024 7:02 AM EST): Assessment: Stable on amlodipine PLAN: -Continue amlodipine -Q4hr vitals Insulin dose changed 08/30/2024 Assessment & Plan (09/03/2024 10:36 AM EST): Assessment: Endo following for MDI insulin regimen PLAN: -Appreciate Endo recs Assessment & Plan (09/02/2024 7:10 AM EST): Assessment: Endo following for MDI insulin regimen PLAN: -Appreciate Endo recs Assessment & Plan (09/01/2024 6:58 AM EST): Assessment: Endo following for MDI insulin regimen PLAN: -Appreciate Endo recs 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 Assessment & Plan (09/03/2024 10:37 AM EST): Assessment: Endo following PLAN: -Appreciate Endo recs Assessment & Plan (09/02/2024 7:10 AM EST): Assessment: Endo following PLAN: -Appreciate Endo recs Assessment & Plan (09/01/2024 6:59 AM EST): Assessment: Endo following PLAN: -Appreciate Endo recs DM type 1 (diabetes mellitus, type 1) 08/29/2024 Overview (08/29/2024): S/p total pancreatecomy Assessment & Plan (09/03/2024 10:37 AM EST): Assessment: s/p total pancreatectomy PLAN: -Appreciate Endo recs Assessment & Plan (09/02/2024 7:10 AM EST): Assessment: s/p total pancreatectomy PLAN: -Appreciate Endo recs Assessment & Plan (09/01/2024 6:59 AM EST): Assessment: s/p total pancreatectomy PLAN: -Appreciate Endo recs Acute postoperative pain 08/28/2024 Assessment & Plan (09/03/2024 10:37 AM EST): Assessment: s/p total pancreatectomy 08/28 PLAN: -APAP 650mg PO q6hr -Tramadol 100mg PO BID -Dilaudid 0.5mg IV q3hr PRN BTP Assessment & Plan (09/02/2024 7:11 AM EST): Assessment: s/p total pancreatectomy 08/28 PLAN: -Dilaudid COLLEGE INTERN -APAP 650mg PO q6hr -Tramadol 100mg PO BID -Dilaudid 0.5mg IV q3hr PRN BTP -Oxycodone 5mg PO q4hr PRN Assessment & Plan (09/01/2024 7:01 AM EST): Assessment: s/p total pancreatectomy 08/28 PLAN: -Dilaudid COLLEGE INTERN -APAP 650mg PO q6hr -Tramadol 100mg PO BID -Dilaudid 0.5mg IV q3hr PRN BTP -Oxycodone 5mg PO q4hr PRN History of pancreatectomy 08/28/2024 Assessment & Plan (09/03/2024 10:36 AM EST): See A/P IPMN Assessment & Plan (09/02/2024 7:10 AM EST): See A/P IPMN Assessment & Plan (09/01/2024 6:58 AM EST): See A/P IPMN S/P splenectomy 08/28/2024 Assessment & Plan (09/03/2024 10:35 AM EST): 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 PLAN: -Ensure splenectomy vaccines PTD -Trend WBC Assessment & Plan (09/02/2024 7:09 AM EST): 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 PLAN: -Ensure splenectomy vaccines PTD -Trend WBC Assessment & Plan (09/01/2024 6:55 AM EST): 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 PLAN: -Ensure splenectomy vaccines PTD -Trend WBC Obesity, Class I, BMI 30-34.9 08/28/2024 Assessment & Plan (09/03/2024 10:35 AM EST): Assessment: BMI 31.3 kg/m2 PLAN: -Defer management during hospital admission Assessment & Plan (09/02/2024 7:09 AM EST): Assessment: BMI 31.3 kg/m2 PLAN: -Defer management during hospital admission Assessment & Plan (09/01/2024 6:56 AM EST): Assessment: BMI 31.3 kg/m2 PLAN: -Defer management during hospital admission Fatty liver 08/22/2024 Assessment & Plan (08/22/2024 11:40 AM EDT): ALT / AST normal most recently. On low-fat pancreatitis diet. History of bowel resection 08/22/2024 Overview (08/22/2024): post trauma Assessment & Plan (08/22/2024 11:42 AM EDT): Post-trauma related to service. Reports frequent bowel movements. Osteoarthritis of right knee 08/22/2024 Back pain 08/22/2024 Overview (08/22/2024): He has severe history of back problems and has a nerve stimulator in place and present for about 4 to 5 years Chronic pancreatitis 05/24/2024 Assessment & Plan (08/22/2024 11:05 AM EDT): history of acute recurrent pancreatitis of unclear [...] scheduled for total pancreatectomy without autoislet 08/28/24. GERD (gastroesophageal reflux disease) Assessment & Plan (09/03/2024 10:36 AM EST): Assessment: Stable on PPI PLAN: -Continue daily PPI Assessment & Plan (09/02/2024 7:10 AM EST): Assessment: Stable on PPI PLAN: -Continue daily PPI Assessment & Plan (09/01/2024 6:58 AM EST): Assessment: Stable on PPI PLAN: -Continue daily PPI Sacroiliitis 07/23/2023 Trochanteric bursitis of right hip 05/29/2023 Bipolar 1 disorder 09/04/2022 Assessment & Plan (09/03/2024 10:37 AM EST): Assessment: Stable on home geodon PLAN: -Continue geodon 40mg PO daily Assessment & Plan (09/02/2024 7:10 AM EST): Assessment: Stable on home geodon PLAN: -Continue geodon 40mg PO daily Assessment & Plan (09/01/2024 6:59 AM EST): Assessment: Stable on home geodon PLAN: -Continue geodon 40mg PO daily Eosinophilic granulomatosis with polyangiitis (E GPA) 09/13/2021 Assessment & Plan (09/03/2024 10:37 AM EST): See A/P Severe persistent asthma Assessment & Plan (09/02/2024 7:10 AM EST): See A/P Severe persistent asthma Assessment & Plan (09/01/2024 6:58 AM EST): See A/P Severe persistent asthma Assessment & Plan (08/22/2024 11:38 AM EDT): See 'severe persistent asthma'. No extrapulmonary manifestations. Posttraumatic stress disorder 01/26/2020 Assessment & Plan (09/03/2024 10:35 AM EST): Assessment: Stable on antidepressants/anxiolytics PLAN: -Continue home meds Assessment & Plan (09/02/2024 7:09 AM EST): Assessment: Stable on antidepressants/anxiolytics PLAN: -Continue home meds Assessment & Plan (09/01/2024 6:56 AM EST): Assessment: Stable on antidepressants/anxiolytics PLAN: -Continue home meds Severe persistent asthma 08/06/2019 Assessment & Plan (09/03/2024 10:35 AM EST): Assessment: H/o Eosinophilic asthma, with previous episodes of bronchitis and pneumonia. On Nucala injections and inhalers per immunology / pulmonology. PLAN: -BPH/IS/PEP/OOB -Continue home inhalers -Wean supplemental O2 Assessment & Plan (09/02/2024 7:09 AM EST): Assessment: H/o Eosinophilic asthma, with previous episodes of bronchitis and pneumonia. On Nucala injections and inhalers per immunology / pulmonology. PLAN: -BPH/IS/PEP/OOB -Continue home inhalers -Wean supplemental O2 Assessment & Plan (09/01/2024 6:54 AM EST): Assessment: H/o Eosinophilic asthma, with previous episodes of bronchitis and pneumonia. On Nucala injections and inhalers per immunology / pulmonology. PLAN: -BPH/IS/PEP/OOB -Continue home inhalers -Wean supplemental O2 Assessment & Plan (08/22/2024 11:38 AM EDT): Eosinophilic asthma, with previous episodes of bronchitis and pneumonia. On Nucala injections and inhalers per immunology / pulmonology. Well controlled, no recent flares. Dong's esophagus 07/03/2012 Assessment & Plan (08/22/2024 11:39 AM EDT): EGD 07/28/24 with Esophageal mucosal changes secondary to established long- segment Dong's disease. On omeprazole, asymptomatic. Chronic anxiety 10/31/2002 Resolved Problems Problem Noted Date Diagnosed Date Resolved Date Acute postoperative respiratory insufficiency 08/30/2009/04/2024 Assessment & Plan (09/03/2024 10:37 AM EST): Assessment: On supplemental O2 PLAN: -OOB/IS/PEP/BPH -Wean supplemental O2 Assessment & Plan (09/02/2024 7:11 AM EST): Assessment: On supplemental O2 PLAN: -OOB/IS/PEP/BPH -Wean supplemental O2 Assessment & Plan (09/01/2024 7:00 AM EST): Assessment: On supplemental O2 PLAN: -OOB/IS/PEP/BPH -Wean supplemental O2 IPMN (intraductal papillary mucinous neoplasm) 08/28/2024 09/04/2024 Assessment & Plan (09/03/2024 10:36 AM EST): Assessment: s/p total pancreatectomy with splenectomy 08/28 PLAN: -GIS diet -Hold tube feeds -Erythromycin 250mg IV q6hr -Reglan 10mg IV TID -PPI PPX -Bowel regimen -PRN antiemetics -F/U pathology Assessment & Plan (09/02/2024 7:10 AM EST): Assessment: s/p total pancreatectomy with splenectomy 08/28 PLAN: -NPO -Tube feeds to goal -Erythromycin 250mg IV q6hr -Reglan 10mg IV TID -PPI PPX -Bowel regimen -PRN antiemetics -F/U pathology Assessment & Plan (09/01/2024 6:57 AM EST): Assessment: s/p total pancreatectomy with splenectomy 08/28 PLAN: -NPO -Tube feeds to goal -Erythromycin 250mg IV q6hr -Reglan 10mg IV TID -PPI PPX -Bowel regimen -PRN antiemetics -F/U pathology ABLA (acute blood loss anemia) 08/28/2024 09/04/2024 Assessment & Plan (09/03/2024 10:38 AM EST): Assessment: EBL 800ml PLAN: -Trend CBC -IV iron -Transfuse for Hgb <7 Assessment & Plan (09/02/2024 7:11 AM EST): Assessment: EBL 800ml PLAN: -Trend CBC -IV iron -Transfuse for Hgb <7 Assessment & Plan (09/01/2024 7:01 AM EST): Assessment: EBL 800ml PLAN: -Trend CBC -IV iron -Transfuse for Hgb <7 Type 2 diabetes mellitus 09/04/2022 Assessment & Plan (09/03/2024 10:34 AM EST): Assessment: s/p total pancreatectomy PLAN: -Endo following for MDI insulin regimen, appreciate recs Assessment & Plan (09/02/2024 7:09 AM EST): Assessment: s/p total pancreatectomy PLAN: -Endo following for MDI insulin regimen, appreciate recs Assessment & Plan (09/01/2024 6:53 AM EST): Assessment: s/p total pancreatectomy PLAN: -Endo following for MDI insulin regimen, appreciate recs Assessment & Plan (08/22/2024 11:04 AM EDT): Well controlled diabetes with A1C 6.1 01/2024. On insulin and metformin. Encounters Date Type Department Care Team Description 03/31/2025 5:00 PM EDT [facility] Endocrinology [address] [place] [address] Kathy Bravo MD Post-pancreatectomy diabetes (HCC) (Primary Dx); Insulin pump status 03/31/2025 Travel 03/31/2025 Telephone [address]ocr[address] [place] [phone] Kathy Bravo MD Appointment 03/18/2025 Telephone Endocrinology [address] [place] [phone] Kathy Bravo MD Request For Clinical Notes 03/04/2025 Telephone Endocrinology [address] [place] [phone] Kathy Bravo MD Forms 02/18/2025 Get Medical Advice [place] [phone] Kathy Bravo MD Group critical illness claim form 02/17/2025 Refill Endocrinology [address] [place] [address] Kathy Bravo MD Refill Request 02/11/2025 Get Medical Advice General Surgery [address] [place] [address] Jesus Jacobson MD Results of EGD 01/28/2025 Patient Msg Gastroenterology [address] [place] [address] Dariusz Pratt MD EGD 01/28/2025 Results Follow-Up Gastroenterology [address] [place] [address] Dariusz Pratt MD 01/23/2025 3:17 PM EDT Anesthesia Event Gastroenterology [address] [place] [phone] Solo Guzman MD 01/23/2025 2:44 PM EDT - 01/23/2025 11:59 PM EDT Hospital Encounter Gastroenterology [address] [place] [phone] Dariusz Pratt MD IPMN (intraductal papillary mucinous neoplasm) [D49.0] Discharge Disposition: Home 01/22/2025 Get Medical Advice Endocrinology [address] [place], [place] [phone] Kathy Bravo MD EGD on SundayJanuary 23 01/16/2025 GI Preprocedure Call Gastroenterology [address] [address] Bacilio Nowak RN 01/07/2025 Orders Only General Surgery [address] [address] Ligia Kerns RN IPMN (intraductal papillary mucinous neoplasm) (Primary Dx) 01/05/2025 1:41 PM EDT - 01/05/2025 11:59 PM EDT Hospital Encounter Gastroenterology [address] [place] [phone] Celia Lo MD IPMN (intraductal papillary mucinous neoplasm) [D49.0] Discharge Disposition: Home 01/05/2025 Travel from Last 3 Months Immunizations Immunization Administration Dates Next Due diphtheria tetanus pertussis -Haemophilus influenzae b (DTP-Hib) vaccine (TETRAMUNE) 08/22/2024 meningococcal (MenACWY-TT) v accine, quadrivalent (MENQUADFI) 08/22/2024 meningococcal B (MenB-4C) vaccine (BEXSERO) 10/2023 pneumococcal conjugate (PCV2 0) vaccine, 20 valent (PREVNAR 20) 08/22/2024 Social History Tobacco Use Types Packs/Day Years Used Date Smoking Tobacco: Never Passive Smoke Exposure: Never Smokeless Tobacco: Never Tobacco Cessation:Counseling Given: Not Answered Alcohol Use Standard Drinks/Week Comments Not Currently 0 (1 standard drink = 0.6 oz pur e alcohol) [facility] Utilities Answer Date Recorded In the past 12 months has e [employer], oil, or water [employer] threatened to shut off services in your [...] were you homeless or living in a fpc (including now)? No 08/29/2024 Area Deprivation Index Answer Date Wilfred rded National Score (1-100), lower number is lower ri sk 84 01/23/2025 State Score (1-10), lower number is lower risk 8 01/23/2025 Data from: https://www.neighborhoodatlas.medicine.[facility].edu/. Last address used for calculation [address] 01/23/2025 Sex and Gender Information Value Date Recorded Sex Assigned at Male 12/24/2024 10:21 AM EST Legal Sex Male 4:42 PM EDT Gender Identity Male 12/24/2024 10:21 AM EST Sexual Orientation Straight 12/24/2024 10 :21 AM EST Last Filed Vital Signs Vital Sign Reading Time Taken Comments Blood Pressure 130/81 01/23/2025 4:20 PM EDT Pulse 65 01/23/2025 4:20 PM EDT Temperature 36.4 C (97.5 F) 01/23/2025 3:54 PM EDT Respiratory Rate 16 01/23/2025 4:20 PM EDT Oxygen Saturation 96% 01/23/2025 4:20 PM EDT Inhaled Oxygen Concentration - - Weight 87.5 kg (193 lb) 01/23/2025 3:04 PM EDT Height 177.8 cm (5' 10 ) 01/23/2025 3:04 PM EDT Body Mass Index 27.69 01/23/2025 3:04 PM EDT Plan of Treatment Upcoming Encounters Date Type Department Care Team (Latest Contact Info) Description 04/10/2025 3:40 PM EDT [facility] [address] [facility] [address] Kathy Bravo MD [address] [place] [address] April 10 340 virtual on cncer template, thanks! 07/07/2025 7:40 AM EDT [facility] [address] [place] [address] Kathy Bravo MD [address] [place] [address] Jul 07 740 virtual Health Maintenance Due Date Last Done Comments Diabetic Foot Exam 1979 Dilated Retinal Exam 1979 Urine Albumin:Creatinine Ratio 1979 Annual PCP Team Chronic Dise ase Visit 1987 Depression Screening 1987 HIV Screening 1987 Hepatitis C Screening 1987 Hepatitis B Vaccine (1 of 3 - 19+ 3-dose series) 1988 CT Colonography 2014 Cologuard (FIT-DNA) 2014 Colonoscopy 2014 Colorectal Cancer Screening 2014 Fecal Occult Blood 2014 Prostate Cancer Screening Discussion 2014 Sigmoidoscopy 2014 LDL Cholesterol 03/01/2019 03/01/2018 Covid-19 Vaccine (5 - 2023-2 5 season) 2024 07/14/2023, 07/07/2021, 02/01/2021, Additional history exists Meningococcal B Vaccine (2 o f 5 - Increased Risk Bexsero 3-dose series) 09/19/2024 08/22/2024 Meningococcal Conjugate Vacc ine (2 - Risk 2-dose series) 10/17/2024 08/22/2024 Medicare Advantage Annual We llness Visit 10/22/2024 HbA1C 12/19/2024 06/18/2024 Influenza Vaccine (Season Ended) 2025 08/14/2023, 08/13/2023, 06/29/2020, Additional history exists DTaP,Tdap,Td Vaccine (3 - Td or Tdap) 08/22/2034 08/22/2024, 12/07/2013 Shingrix Vaccine Completed 08/07/2020, 06/05/2020 Hib Vaccine Completed 08/22/2024 Pneumococcal Vaccine: 50+ Completed 2023, 08/06/2017, 07/07/2017, Additional history exists Medical Devices Implanted Type Area Press Leader Device Identifier Shelf Expiration Date Model / Serial / Lot Implant Implant Back Description:Chest area surgi bright metal Metal throughout the back (battery lower spine area) Shrap metal in right hip area/r forearm Procedures Procedure Name Priority Date/Time Associated Diagnosis Comments EGD DIAGNOSTIC Routine 01/23/2025 3:48 PM EDT IPMN (intraductal papillary mucinous neoplasm) SURGICAL PATHOLOGY Routine 01/23/2025 3: 29 PM EDT IPMN (intraductal papillary mucinous neoplasm) Family history of Dong's esophagus EGD - THERAPEUTIC, EUS, OR TUBE INTERVENTIONS Routine 01/05/2025 2:57 PM EDT from Last 3 Months Results * EGD DIAGNOSTIC (01/23/2025 3:48 PM EDT) Anatomical Region Laterality Modality Other 01/23/2025 3:08 PM EDT Narrative 01/23/2025 3:45 PM EDT Q3 Patient Name: Thomas Petty Procedure Date: 01/23/2025 3:08 PM Date of : 1970 Admit Type: Outpatient Age: 54 Gender: Male Note Status: Finalized Attending MD: Dariusz Pratt MD, [id number] Procedure: Upper GI endoscopy Indications: Epigastric abdominal pain Providers: Dariusz Pratt MD Patient Profile: This is a 54 year old male. Referring Physician: Alessandro Jacobson MD (Referring MD) Medicines: Monitored Anesthesia Care Complications: No immediate complications. Requesting Provider: Procedure: Pre-Anesthesia Assessment: - Prior to the procedure, a History and Physical was performed, and patient medications and allergies were reviewed. The patient's tolerance of previous anesthesia was also reviewed. The risks and benefits of the procedure and the sedation options and risks were discussed with the patient. All questions were answered, and informed consent was obtained. Prior Anticoagulants: The patient has taken no anticoagulant or antiplatelet agents. ASA Grade Assessment: III - A patient with severe systemic disease. After reviewing the risks and benefits, the patient was deemed in satisfactory condition to undergo the procedure. After obtaining informed consent, the endoscope was passed under direct vision. Throughout the procedure, the patient's blood pressure, pulse, and oxygen saturations were monitored continuously. The Endoscope was introduced through the mouth, and advanced to the jejunum. The upper GI endoscopy was accomplished without difficulty. The patient tolerated the procedure well. Moderate Sedation: MAC anesthesia was administered by the anesthesia team. Findings: There were esophageal mucosal changes classified as Dong's stage C3-M5 per Prescott criteria present in the lower third of the esophagus. The maximum longitudinal extent of these mucosal changes was 5 cm in length. This was biopsied with a cold forceps for histology. Bilious fluid was found in the stomach. Patchy mild inflammation characterized by erythema was found in the gastric antrum. Biopsies were taken with a cold forceps for histology. 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 This was characterized by healthy appearing mucosa and the presence of no stomal ulceration. The examined jejunum was normal. 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 Biopsied. - Bile gastritis, characterized by erythema. Biopsied. Estimated Blood Loss: Estimated blood loss: none. Recommendation: - Await pathology results. - Patient has a contact number available for emergencies. The signs and symptoms of potential delayed complications were discussed with the patient. Return to normal activities tomorrow. Written discharge instructions were provided to the patient. Procedure Code(s): --- Professional --- 01702 Diagnosis Code(s): --- Professional --- K22.70 K29.60 Z90.411 Z90.49 R10.13 CPT copyright 2020 [employer]. All rights reserved. Attending Participation: I personally performed the entire procedure. Scope In: 3:27:59 PM Scope Out: 3:39:36 PM MD Dariusz Josue MD 01/23/2025 3:43:43 PM This report has been signed electronically by Dariusz Pratt MD Number of Addenda: 0 Note Initiated On: 01/23/2025 3:08 PM Jesus Jacobson MD DIGESTIVE DISEASE Final Resul t * SURGICAL PATHOLOGY (01/23/2025 3:29 PM EDT) Case Report Surgical Pathology Report Case: [id number] Authorizing Provider: Dariusz Pratt MD Collected: 01/23/2025 03:29 PM Ordering Location: Gastroenterology Received: 01/23/2025 05:59 PM Pathologist: Parvez Chaidez MD Specimens: A) - Stomach, Biopsy B) - Esophagus, Biopsy, biopsy at 34 cm C) - Esophagus, Biopsy, biopsy at 32cm 01/27/2025 2:42 PM EDT [facility] FINAL DIAGNOSIS A. Stomach, biopsy: - Antral and fundic mucosa with chronic inactive gastritis; see comment. B. 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 C. Esophagus at 32 cm, biopsy: - Dong's esophagus, negative for dysplasia. 01/27/2025 2:42 PM EDT [facility] at 1129 EDT Diagnosis Comment H. pylori immunostain is pending on the stomach biopsy. 01/27/2025 2:42 PM EDT [facility] Gross Description A. Stomach, Biopsy Received in formalin is one piece of clemente-red, soft tissue measuring 0.5 x 0.4 x 0.2 cm. Totally submitted in one cassette. B. Esophagus, Biopsy Received in formalin are two pieces of clemente-pink and red, soft tissue aggregating to 0.7 x 0.3 x 0.2 cm. Totally submitted in one cassette. C. Esophagus, Biopsy Received in formalin are multiple pieces of clemente-white and red, soft tissue aggregating to 0.8 x 0.2 x 0.1 cm. Totally submitted in one cassette. AJB January 23, 2025 7:53 PM Gross examination performed at [facility], [facility] [place] [address] 01/27/2025 2:42 PM EDT [facility] Performing Lab Diagnostic interpretation performed at: [facility], [address] [address] CLIA# [id number] Stenciler: Whitney Leonardo MD 01/27/2025 2:42 PM EDT [facility] Addendum H. pylori immunostain performed on the stomach biopsy (part a) to evaluate th chronic gastris is negative for organisms. Laboratory Developed Test (LDT) Disclaimer: Performance characteristics of immunohistochemical , immunofluorescent and chromogenic in-situ hybridization tests have been determined by the performing laboratory within [facility] Pathology and Laboratory Medicine Department ([facility], [facility], [facility], [facility], [facility], [facility], or [facility]) in a manner consistent with CLIA requirements. One or more of these tests have not been cleared or approved by the FDA. [facility] is regulated under CLIA as qualified to perform high-complexity testing. These tests are used for clinical purposes. They should not be regarded as investigational or for research. Positive and negative controls stain appropriately. 01/27/2025 2:42 PM EDT [facility] Addendum electronically signed by Parvez Chaidez MD on 01/27/2025 at 1442 EDT Disclaimer Laboratory Developed Test (LDT) Disclaimer: Performance characteristics of immunohistochemical , immunofluorescent, and chromogenic in-situ hybridization tests have been determined by the performing laboratory within [facility]'s [facility] Pathology and Laboratory Medicine Department ([facility], [facility], [facility], [facility], [facility], or [facility]) in a manner consistent with CLIA requirements. One or more of these tests may not have been cleared or approved by the FDA. [facility] is regulated under CLIA as qualified to perform high-complexity testing. These tests are used for clinical purposes. These should not be regarded as investigational or for research. Positive and negative controls stain appropriately. 01/27/2025 2:42 PM EDT [facility] Tissue BIOPSY OF STOMACH / Unknown 01/23/2025 3:29 PM EDT 01/23/2025 5:59 PM EDT Comment:R/o Gastritis Tissue specimen (specimen) SPECIMEN FROM ESOPHAGUS OBTAINED BY INCISIONAL BIOPSY / Unknown 01/23/2025 3:38 PM EDT 01/23/2025 5:59 PM EDT Comment:R/o Dysplasia History of Barretts Tissue specimen (specimen) SPECIMEN FROM ESOPHAGUS OBTAINED BY INCISIONAL BIOPSY / Unknown 01/23/2025 3:40 PM EDT 01/23/2025 5:59 PM EDT Comment:R/o Barretts us Dariusz Pratt MD SURGICAL PATHOLOGY Edited Res ult - Final [facility] [address] [place] [address], [facility] [address] [place] [address], * EGD - THERAPEUTIC, EUS, OR TUBE INTERVENTIONS (01/05/2025 2:57 PM EDT) Anatomical Region Laterality Modality Other 01/05/2025 2:57 PM EDT Narrative 01/05/2025 3:21 PM EDT A31 Gastrointestinal Endoscopy Patient Name: Thomas Petty Procedure Date: 01/05/2025 2:57 PM Date of : 1970 Admit Type: Outpatient Age: 54 Room: [address] [address] Gender: Male Note Status: Finalized Attending MD: Celia Hardin MD, [id number] Procedure: Upper GI endoscopy Indications: Bloating Providers: Celia Hardin MD, Ajith Radford (Fellow) Referring Physician: Alessandro Jacobson MD (Referring MD) Medicines: Fentanyl 100 micrograms IV, Midazolam 5 mg IV, Benzocaine spray Requesting Provider: Procedure: Pre-Anesthesia Assessment: - Prior to the procedure, a History and Physical was performed, and patient medications and allergies were reviewed. The patient is competent. The risks and benefits of the procedure and the sedation options and risks were discussed with the patient. All questions were answered and informed consent was obtained. Patient identification and proposed procedure were verified by the physician and the nurse in the pre-procedure area. Mental Status Examination: normal. Airway Examination: normal oropharyngeal airway and neck mobility. Respiratory Examination: clear to auscultation. CV Examination: normal. Prophylactic Antibiotics: The patient does not require prophylactic antibiotics. Prior Anticoagulants: The patient has taken no anticoagulant or antiplatelet agents. ASA Grade Assessment: II - A patient with mild systemic disease. After reviewing the risks and benefits, the patient was deemed in satisfactory condition to undergo the procedure. The anesthesia plan was to use moderate sedation / analgesia (conscious sedation). Immediately prior to administration of medications, the patient was re-assessed for adequacy to receive sedatives. The heart rate, respiratory rate, oxygen saturations, blood pressure, adequacy of pulmonary ventilation, and response to care were monitored throughout the procedure. The physical status of the patient was re-assessed after the procedure. After obtaining informed consent, the endoscope was passed under direct vision. Throughout the procedure, the patient's blood pressure, pulse, and oxygen saturations were monitored continuously. The Endoscope was introduced through the mouth, with the intention of advancing to the stomach. The scope was advanced to the gastric body before the procedure was aborted. Medications were given. The procedure was aborted due to presence of food. Moderate Sedation: The administration of moderate sedation was initiated at 15:03. Moderate (conscious) sedation was administered by the nurse and supervised by the endoscopist. The following parameters were monitored: oxygen saturation, heart rate, blood pressure, and response to care. Findings: A large hiatal hernia was present. Dong's esophagus was present in the lower third of the esophagus. A large amount of food (residue) was found in the gastric body. EGD was aborted due to presence of food and risk of aspiration. Impression: - The procedure was aborted due to presence of food. - Large hiatal hernia. - Dong's esophagus. - A large amount of food (residue) in the stomach. - No specimens collected. Estimated Blood Loss: Estimated blood loss: none. Recommendation: - Discharge patient to home. - Resume previous diet. - Consider GES. - Return to referring physician as previously scheduled. Procedure Code(s): --- Professional --- 71975, 52, Esophagogastroduodenoscopy, flexible, transoral; diagnostic, including collection of specimen(s) by brushing or washing, when performed (separate procedure) CPT copyright 2020 [employer]. All rights reserved. The codes documented in this report are preliminary and upon special effects designer review may be revised to meet current compliance requirements. Attending Participation: I was present and participated during the entire procedure, including non-[place] portions. Scope In: 3:12:02 PM Scope Out: 3:12:59 PM MD Celia Derash, MD 01/05/2025 3:19:10 PM This report has been signed electronically by Celia Hardin MD Number of Addenda: 0 Note Initiated On: 01/05/2025 2:57 PM R Alessandro Jacobson MD DIGESTIVE DISEASE Final Resul t from Last 3 Months Insurance [facility] DUAL COMPLETE HMO POS [place] MEDICA[place] Care Teams Operator Specialist Communications Relationship Specialty Start Date End Date Meg Lynn APRN.NEUROLOGY PHYSICIAN [address] [place] [address] PCP - General Family Medicine 08/15/24 Wesly Davies MD [address] [place] [place] [address] Referring Gastroenterology 07/16/24 Wesly Davies MD [address] [place] [address] Referring Gastroenterology 07/25/24
--- OUTSIDE RECORDS SUMMARY | 2025-04-02 11:25 | XMS_ITS | Encounter Summary ---
Author Organization [facility] Address [facility] [place] [address] Care Team Providers Care Manager Configuration Name Role Phone Wesly Davies MD Unavailable [phone] Wesly Davies MD Unavailable [phone] Meg Lynn APRN.[facility] Primary Care Provider Source Comments In the event this information is protected by the Federal Confidentiality of Alcohol and Drug AbusePatient Records regulations: The Federal rules restrict any use of the information to criminally investigate or prosecute any alcohol or drug abuse patient.[facility] Encounter Details Date Type Department Care Team (Late st Contact Info) Description 01/28/2025 Results Follow-Up Gastroenterology [address] [id number] Dariusz Pratt MD [address] [place] [address] Social History Tobacco Use Types Packs/Day Years Used Date Smoking Tobacco: Never Passive Smoke Exposure: Never Smokeless Tobacco: Never Alcohol Use Standard Drinks/Week Comments Not Currently 0 (1 standard drink = 0.6 oz pur e alcohol) [facility] Utilities Answer Date Recorded In the past 12 months has th e electric, gas, oil, or water [employer] threatened to shut off services in your [...] any time in the past 12 m [facility], were you homeless or living in a prison (including now)? No 08/29/2024 Area Deprivation Index Answer Date Wilfred rded National Score (1-100), lower number is lower ri sk 84 01/23/2025 State Score (1-10), lower number is lower risk 8 01/23/2025 Data from: https://www.neighborhoodatlas.medicine.[facility].edu/. Last address used for calculation [address] [...] 04/10/2025 3:40 PM EDT [facility] [address] [place] [address] Kathy Bravo MD [address] [place] [address] April 10 virtual on cncer template, thanks! 07/07/2025 7:40 AM EDT [facility] Endocrinology [address] [place] [address] Kathy Bravo MD [address] [place] [address] Jun 16 740 virtual documented as of this encounter Visit Diagnoses Not on filedocumented in this encounter Care Teams Manager Configuration Relationship Specialty Start Date End Date eMg Lynn, STITCH MARKER.INSURANCE AND FINANCIAL SERVICES AGENT [address] [place] [address] PCP - General Family Medicine 08/15/24 Wesly Davies MD [address] [place], [place] [id number] Referring Gastroenterology 07/16/24 Wesly Davies MD [address] [place], [place] [id number] Referring Gastroenterology 07/25/24 documented as of this encounter
--- OUTSIDE RECORDS SUMMARY | 2025-04-02 11:25 | XMS_ITS | Encounter Summary ---
Author Organization [facility] Address [address] [place] [address] Care Team Providers Care Workforce Development Vice President Name Role Phone Wesly Davies MD Unavailable [phone] Wesly Davies MD Unavailable [phone] Meg Lynn APRN.[facility] Primary Care Provider Source Comments In the event this information is protected by the Federal Confidentiality of Alcohol and Drug AbusePatient Records regulations: The Federal rules restrict any use of the information to criminally investigate or prosecute any alcohol or drug abuse patient.[facility] Reason for Visit * Reason Comments Appointment Encounter Details Date Type Department Care Team (Late st Contact Info) Description 03/31/2025 Telephone Endocrinology [address] [place] [address] Kathy Bravo MD [address] [place] [address] Appointment Social History Tobacco Use Types Packs/Day Years Used Date Smoking Tobacco: Never Passive Smoke Exposure: Never Smokeless Tobacco: Never Alcohol Use Standard Drinks/Week Comments Not Currently 0 (1 standard drink = 0.6 oz pur e alcohol) [facility] Utilities Answer Date Recorded In the past 12 months has th e electric, gas, oil, or water [employer] threatened to shut off services in your [...] any time in the past 12 m [facility], were you homeless or living in a retirement (including now)? No 08/29/2024 Area Deprivation Index Answer Date Wilfred rded National Score (1-100), lower number is lower ri sk 84 01/23/2025 State Score (1-10), lower number is lower risk 8 01/23/2025 Data from: https://www.neighborhoodatlas.medicine.[facility].edu/. Last address used for calculation [address] 01/23/2025 Sex and Gender Information Value Date Recorded Sex Assigned at Male 12/24/2024 10:21 AM EST Legal Sex Male 4:42 PM EDT Gender Identity Male 12/24/2024 10:21 AM EST Sexual Orientation Straight 12/24/2024 10 :21 AM EST documented as of this encounter Miscellaneous Notes * Telephone Encounter - Julio C Hopsonchelsie - 03/31/2025 9:54 AM EDT March 31, 2025 9:54 AM Last encounter Visit on 12/24/2024 (with Kathy Bravo) Thomas Petty called regarding needing an appointment in order to have his supplies shipped from [facility]. Per patient his insurance, he needs to be seen every 3 months in order to continue getting supplies so his 12/24/24 notes are no longer valid. Patient was originally transferred from the first front ventilator to be helped with being scheduled soon. Please advise. Stephanie Hopson Nursing Unit Coordinator [facility] Endocrinology X-20 documented in this encounter Plan of Treatment Upcoming Encounters Date Type Department Care Team (Latest Contact Info) Description 04/10/2025 3:40 PM EDT [facility] Endocrinology [address] [place] [address] Kathy Bravo MD [address] [place] [address] April 10 340 virtual on cncer template, thanks! 07/07/2025 7:40 AM EDT [facility] Endocrinology [address] [place] [address] Kathy Bravo MD [address] [place] [address] Jun 16 740 virtual documented as of this encounter Visit Diagnoses Not on filedocumented in this encounter Care Teams Workforce Development Vice President Relationship Specialty Start Date End Date Meg Lynn APRN.[facility] [address] [place] [address] PCP - General Family Medicine 08/15/24 Wesly Davies MD [address] [place], [place] [id number] Referring Gastroenterology 07/16/24 Wesly Davies MD [address] [place], [place] [id number] Referring Gastroenterology 07/25/24 documented as of this encounter
--- OUTSIDE RECORDS SUMMARY | 2025-04-02 11:25 | XMS_ITS | Encounter Summary ---
Author Organization [facility] Address [address] [place] [address] Care Team Providers Care Senior Investment Analyst Name Role Phone Wesly Davies MD Unavailable [phone] Wesly Davies MD Unavailable [phone] Meg Lynn APRN.[facility] Primary Care Provider Source Comments In the event this information is protected by the Federal Confidentiality of Alcohol and Drug AbusePatient Records regulations: The Federal rules restrict any use of the information to criminally investigate or prosecute any alcohol or drug abuse patient.[facility] Encounter Details Date Type Department Care Team (Late st Contact Info) Description 10/31/2024 Patient Msg Endocrinology [address] [place] [address] Kathy Bravo MD [address] [place] [address] Appointment Social History Tobacco Use Types Packs/Day Years Used Date Smoking Tobacco: Never Passive Smoke Exposure: Never Smokeless Tobacco: Never Alcohol Use Standard Drinks/Week Comments Not Currently 0 (1 standard drink = 0.6 oz pur e alcohol) [facility] Utilities Answer Date Recorded In the past [...] any time in the past 12 m [facility], were you homeless or living in a long-term (including now)? No 08/29/2024 Area Deprivation Index Answer Date Wilfred rded National Score (1-100), lower number is lower ri sk 84 07/17/2024 State Score (1-10), lower number is lower risk 8 07/17/2024 Data from: https://www.neighborhoodatlas.medicine.[facility].edu/. Last address used for calculation [...] 04/10/2025 3:40 PM EDT [facility] [address] [place] [address] Kathy Bravo MD [address] [place] [address] April 10 virtual on cncer template, thanks! 07/07/2025 7:40 AM EDT [facility] Endocrinology [address] [place] [address] Kathy Bravo MD [address] [place] [address] Jun 16 740 virtual documented as of this encounter Visit Diagnoses Not on filedocumented in this encounter Care Teams Senior Investment Analyst Relationship Specialty Start Date End Date Meg Lynn, MOTOR RUNNER.PHOSPHORIC ACID OPERATOR [address] [place] [address] PCP - General Family Medicine 08/15/24 Wesly Davies MD [address] [place], [place] [id number] Referring Gastroenterology 07/16/24 Wesly Davies MD [address] [place], [place] [id number] Referring Gastroenterology 07/25/24 documented as of this encounter
--- OUTSIDE RECORDS SUMMARY | 2025-04-02 11:25 | XMS_ITS | Encounter Summary ---
Author Organization [facility] Address [facility] [place] [address] Care Team Providers Care Drywall Stripper Helper Name Role Phone Wesly Davies MD Unavailable [phone] Wesly Davies MD Unavailable [phone] Meg Lynn APRN.[facility] Primary Care Provider Source Comments In the event this information is protected by the Federal Confidentiality of Alcohol and Drug AbusePatient Records regulations: The Federal rules restrict any use of the information to criminally investigate or prosecute any alcohol or drug abuse patient.[facility] Encounter Details Date Type Department Care Team (Late st Contact Info) Description 01/28/2025 Patient Msg Gastroenterology [address] [address] Dariusz Pratt MD [address] [place] [address] EGD Social History Tobacco Use Types Packs/Day Years Used Date Smoking Tobacco: Never Passive Smoke Exposure: Never Smokeless Tobacco: Never Alcohol Use Standard Drinks/Week Comments Not Currently 0 (1 standard drink = 0.6 oz pur e alcohol) [facility] Utilities Answer Date Recorded In the past 12 months has th e electric, gas, oil, or water [employer] threatened to shut off services in your [...] any time in the past 12 m [facility], were you homeless or living in a group home (including now)? No 08/29/2024 Area Deprivation Index Answer Date Wilfred rded National Score (1-100), lower number is lower ri sk 84 01/23/2025 State Score (1-10), lower number is lower risk 8 01/23/2025 Data from: https://www.neighborhoodatlas.medicine.[facility].edu/. Last address used for calculation [address] [...] 04/10/2025 3:40 PM EDT [facility] [address] [place] [address] Kathy Bravo MD [address] [place] [address] April 10 virtual on cncer template, thanks! 07/07/2025 7:[address] [facility] Endocrinology [address] [place] [address] Kathy Bravo MD [address] [place] [address] Jun 16 740 virtual documented as of this encounter Visit Diagnoses Not on filedocumented in this encounter Care Teams Drywall Stripper Helper Relationship Specialty Start Date End Date Meg Lynn APRN.CLERICAL ADJUDICATOR [address] [place] [address] PCP - General Family Medicine 08/15/24 Wesly Davies MD [address] [place] [address] Referring Gastroenterology 07/16/24 Wesly Davies MD [address] [place] [address] Referring Gastroenterology 07/25/24 documented as of this encounter
--- OUTSIDE RECORDS SUMMARY | 2025-04-02 11:25 | XMS_ITS | Encounter Summary ---
Author Organization [facility] Address [address] [place] [id number] Care Team Providers Care Freelance Web Designer Name Role Phone Wesly Davies MD Unavailable [phone] Wesly Davies MD Unavailable [phone] Meg Lynn APRN.[facility] Primary Care Provider Source Comments In the event this information is protected by the Federal Confidentiality of Alcohol and Drug AbusePatient Records regulations: The Federal rules restrict any use of the information to criminally investigate or prosecute any alcohol or drug abuse patient.[facility] Encounter Details Date Type Department Care Team (Late st Contact Info) Description 02/11/2025 Get Medical Advice General Surgery [address] [place] [id number] [place] [address] [place] [id number] Results of EGD Social History Tobacco Use Types Packs/Day Years Used Date Smoking Tobacco: Never Passive Smoke Exposure: Never Smokeless Tobacco: Never Alcohol Use Standard Drinks/Week Comments Not Currently 0 (1 standard drink = 0.6 oz pur e alcohol) [facility] Utilities Answer Date Recorded In the past 12 months has th e Priori Data, gas, oil, or water [employer] threatened to shut off services in your [...] any time in the past 12 m [facility], were you homeless or living in a care home (including now)? No 08/29/2024 Area Deprivation Index Answer Date Wilfred rded National Score (1-100), lower number is lower ri sk 84 01/23/2025 State Score (1-10), lower number is lower risk 8 01/23/2025 Data from: https://www.neighborhoodatlas.medicine.[facility].edu/. Last address used for calculation [address] [...] 04/10/2025 3:40 PM EDT [facility] [address] [place] [id number] Kathy Bravo MD [address] [place] [address] April 10 virtual on cncer template, thanks! 07/07/2025 7:40 AM EDT [facility] Endocrinology [address] [place] [address] Kathy Bravo MD [address] [place] [address] Sept 16 740 virtual documented as of this encounter Visit Diagnoses Not on filedocumented in this encounter Care Teams Freelance Web Designer Relationship Specialty Start Date End Date Meg Lynn, WINE CELLAR STOCK CLERK.PUTTY GLAZER [address] [place] [address] PCP - General Family Medicine 08/15/24 Wesly Davies MD [address] [place] [address] Referring Gastroenterology 07/16/24 Wesly Davies MD [address] [place] [address] Referring Gastroenterology 07/25/24 documented as of this encounter
--- OUTSIDE RECORDS SUMMARY | 2025-04-02 11:25 | XMS_ITS | Encounter Summary ---
Author Organization [facility] Address [address] [place] [address] Care Team Providers Care Vascular Ultrasound Technologist Name Role Phone Meg Lynn APRN, CNP Primary Care Provid er Reason for Visit * Reason Comments Medication Refill Encounter Details Date Type Department Care Team (Late st Contact Info) Description 04/27/2018 Refill [facility] Family Medicine [address] [place] [address] Lillian Figueroa MD [address] [place] [address] Medication Refill Social History Tobacco Use Types Packs/Day Years Used Date Smoking Tobacco: Never Smokeless Tobacco: Never Alcohol Use Standard Drinks/Week Comments Yes 0 (1 standard drink = 0.6 oz pur e alcohol) on occasion Sex and Gender Information Value Date Recorded Sex Assigned at Male 01/30/2025 6:24 AM EDT Legal Sex Male 12:14 AM EST Gender Identity Male 01/30/2025 6:24 AM EDT Sexual Orientation Straight 01/30/2025 6: 24 AM EDT documented as of this encounter Plan of Treatment Upcoming Encounters Date Type Department Care Team (Late st Contact Info) Description 08/20/2025 11:00 AM EDT Office Visit [facility] UROLOGY Part of [address] [place] [address] Parvez Chatterjee MD [address] [facility], [address] [place] [address] one year PSA documented as of this encounter Visit Diagnoses Diagnosis Gastroesophageal reflux disease, esophagitis presence not specified documented in this encounter Additional Health Concerns Infection Onset Date Last Indicated Resolved Time C-diff Rule Out 06/21/2023 06/21/2023 06/21/2023 5 :12 PM EDT C-diff Rule Out 09/10/2023 09/10/2023 09/10/2023 5 :53 PM EST Influenza 12/24/2024 12/24/2024 01/03/2025 9:27 PM EDT documented as of this encounter Care Teams Vascular Ultrasound Technologist Relationship Specialty Start Date End Date Meg Lynn APRN - WAITER/WAITRESS CABIN CLASS [address] [place] [address] PCP - General Certified Nurse Practitioner 04/23/23 documented as of this encounter
--- OUTSIDE RECORDS SUMMARY | 2025-04-02 11:25 | XMS_ITS | Data Portability ---
Author Organization [facility], [facility] IP Address [address] [place] [address] Care Team Providers Care Revenue Settlements Administrator Name Role Phone BAMBI RODRÍGUEZ Primary Care Provider [phone] Assessment No assessment recorded. Plan of Treatment Reminders Order Date Submit Date Provider Last Modified By Organization Details Last Modified Time Details Appointments None recorded. Lab lipid panel, serum 2022 023 [email or web address] Not available 4 15:19:32 amylase + lipase, serum 2022 023 [email or web address] Not available 4 15:19:32 HbA1c (hemoglobi n A1c), blood 2022 023 [email or web address] Not available 4 15:19:31 CMP, serum or plasma 2022 023 [email or web address] Not available 4 15:19:32 nonalcohol ic steatohepa titis + fibrosis panel, serum or plasma 2022 023 [email or web address] Not available 4 15:19:31 gamma-glut amyl transferas e (ggt), serum 2022 023 [email or web address] Not available 4 15:19:31 Referral None recorded. Procedures colonoscop y procedure (PROC) 2022 023 [email or web address] Not available 3 12:21:03 upper endoscopy procedure (EGD) (PROC) 2022 023 [email or web address] Not available 12:48:47 Surgeries None recorded. Imaging US, elastogram - npo after midnight. register 30 min early. 2022 023 [facility] Scheduling, [address], [place], [place], [address], 10:41:26 Medication Orders Creon 36,000 unit-114,0 00 unit-180,0 00 unit capsule,de layed release 2022 023 [email or web address] [facility] [employer] #[id number], [address] , [place], [place], [id number], 17:28:26 Patient TargetsNo targets recorded. Patient Instructions Encounter Date Encounter Id Patient Instructions Last Modified By Organization Details Last Modified Time 03/29/2023 [id number] Delia, Vicki soriano CMA, attest that I personally scribed for Dr. Ty Elam and that the documentation in the clinical portion of the chart was captured in collaboration with Dr. Ty Elam. The total time of this patient encounter was 23 minutes. This was time I personally provided/performe d and excludes time provided/performe d by ancillary staff. This may include time spent by me preparing to see the patient (eg, review of tests); obtaining and/or reviewing separately obtained history; performing a medically appropriate examination and/or evaluation; counseling and educating the patient/family/ca regiver; ordering medications, tests, or procedures; referring and communicating with other health home care manager (when not separately reported); documenting clinical information in the electronic or other health record; independently interpreting results (when not separately reported) and communicating results to the patient/family/ca regiver; or care coordination (when not separately reported). [email or web address] Not available 03/29/2023 16:53:31 Reason for Referral None Reported. Problems Name Problem SNOMED Code Status Onset Date Resolution Date Notes Provider Name and Address Organization Details Recorded Time Exocrine pancreatic insufficien cy 22331532 Active 2022 OSCAR Nunez, Nick - [facility]- [facility] 16:46:57 History of pancreatiti s 3880348088609 7 Active 2022 OSCAR Nunez null, [facility] 3 16:46:58 Hypertrigly ceridemia 380325358 Active 2022 OSCAR Nunez null, [facility] 3 16:47:32 Type 2 diabetes mellitus without complicatio n 223551129 Active 2022 OSCAR Nunez null, [facility] 3 16:49:29 History of polyp of colon 007154051 Active 2022 Vicki Tolbert CCMA null, [facility] 3 16:49:30 Dong's esophagus 712026462 Active 2022 OSCAR Nunez null, [facility] 3 16:49:31 Problem Notes None recorded. Procedures Surgical History Date Name Laterality Status Provider Name and Address Organization Details Recorded Time Appendectomy completed Not Available [facility] 01/20/2023 14:26:18 total knee replacement completed Not Available [facility] 01/20/2023 14:26:18 Back Surgery completed Not Available [facility] 01/20/2023 14:26:18 Hernia Repair completed Not Available [facility] 01/20/2023 14:26:18 leg repair completed Not Available [facility] 01/20/2023 14:26:18 Cholecystectomy completed Not Available [facility] 01/20/2023 14:26:18 Imaging Results None recorded. Procedure Notes None recorded. Medical Equipment None Reported. Allergies Allergen ID Allergen Name Allergen Category Reaction Reaction Severity Criticality Documentation Date Start Date Code Code System Note Provider Name and Address Organization Details Recorded Time 24797 Zofran medicatio n Not available Not available Not available 01/20/2023 43476 RxNorm Not Available [facility] 14:28:47 70153 codeine medicatio n Not available Not available Not available 01/20/2023 2670 RxNorm Not Available [facility] 04/01/202 3 14:28:47 Medications Name Sig Start Date Stop Date Status Note LastModified by Organization Details LastModified Time Miralax 17 gram/dose oral powder 01/01 completed Not Available Not Available Not Available atorvastati n 40 mg tablet TAKE 1 TABLET BY MOUTH EVERY DAY active Not Available Not Available No t Available metformin 500 mg tablet TAKE 1 TABLET BY MOUTH EVERY DAY active Not Available Not Available No t Available nystatin 100,000 unit/mL oral suspension SWISH AND SWALLOW 5 ML BY MOUTH FOUR TIMES DAILY FOR 14 DAYS. RETAIN IN EACH SIDE OF THE MOUTH FOR 30 SECONDS BEFORE SWALLOWIN G 01/01 completed Not Available Not Available Not Available prednisone 10 mg tablet 01/01 completed Not Available Not Available Not Available doxycycline hyclate 100 mg capsule TAKE 1 CAPSULE BY MOUTH TWICE DAILY FOR 10 DAYS 01/01 completed Not Available Not Available Not Available azithromyci n 250 mg tablet TAKE 1 TABLET BY MOUTH DAILY FOR 6 DAYS. START ON DAY 2 OF THERAPY 01/01 completed Not Available Not Available Not Available amitriptyli ne 75 mg tablet TAKE 1 TABLET BY MOUTH AT BEDTIME 01/01 completed Not Available Not Available Not Available tizanidine 4 mg tablet TAKE 1 TABLET EVERY 8 HOURS NEEDED 01/01 completed Not Available Not Available Not Available promethazin e 6.25 mg/5 mL oral syrup active Not Available Not Available Not Available prazosin 1 mg capsule TAKE 1 CAPSULE BY MOUTH EVERY DAY AT BEDTIME active Not Available Not Available No t Available phenazopyri dine 200 mg tablet TAKE 1 TABLET BY MOUTH THREE TIMES DAILY FOR 3 DAYS 01/01 completed Not Available Not Available Not Available prednisone 20 mg tablet TAKE 1 TABLET BY MOUTH EVERY DAY DIRECTED active Not Available Not Available No t Available clonazepam 1 mg tablet TAKE 1/2 TABLET IN THE MORNING AND 2 TABLETS AT NIGHT active Not Available Not Available No t Available diphenoxyla te-atropine 2.5 mg-0.025 mg tablet TAKE 1 TABLET BY MOUTH EVERY 8 HOURS NEEDED FOR DIARRHEA 01/01 completed Not Available Not Available Not Available amlodipine 2.5 mg tablet TAKE 1 TABLET BY MOUTH EVERY DAY active Not Available Not Available No t Available ciprofloxac in 500 mg tablet TAKE 1 TABLET BY MOUTH TWICE DAILY FOR 14 DAYS FOR INFECTION 01/01 completed Not Available Not Available Not Available omeprazole 40 mg capsule,del ayed release TAKE 1 CAPSULE BY MOUTH EVERY DAY active Not Available Not Available No t Available tramadol 50 mg tablet TAKE 2 TABLETS BY MOUTH IN THE MORNING AND AT 2 PM active Not Available Not Available No t Available amitriptyli ne 50 mg tablet TAKE 1 TABLET BY MOUTH EVERY DAY AT BEDTIME active Not Available Not Available No t Available ketorolac 10 mg tablet TAKE 1 TABLET BY MOUTH EVERY 6 HOURS NEEDED FOR PAIN. DO NOT USE FOR MORE THAN 5 DAYS 01/01 completed Not Available Not Available Not Available oxycodone-a cetaminophe n 5 mg-325 mg tablet TAKE 1 TO 2 TABLETS BY MOUTH TWICE DAILY NEEDED FOR ABDOMINAL PAIN 01/01 completed Not Available Not Available Not Available amoxicillin 875 mg tablet TAKE 1 TABLET BY MOUTH TWICE DAILY active Not Available Not Available No t Available tamsulosin 0.4 mg capsule TAKE 1 CAPSULE BY MOUTH EVERY DAY IN THE MORNING 01/01 completed Not Available Not Available Not Available meclizine 25 mg tablet TAKE 1 TABLET EVERY 8 HOURS NEEDED 01/01 completed Not Available Not Available Not Available baclofen 10 mg tablet TAKE 1 TABLET BY MOUTH TWICE DAILY NEEDED 01/01 completed Not Available Not Available Not Available cephalexin 500 mg capsule TAKE 1 CAPSULE BY MOUTH TWICE DAILY FOR 7 DAYS 01/01 completed Not Available Not Available Not Available oseltamivir 75 mg capsule TAKE 1 CAPSULE BY MOUTH TWICE DAILY FOR 5 DAYS 01/01 completed Not Available Not Available Not Available promethazin e 25 mg tablet TAKE 1 TABLET EVERY 6 HOURS NEEDED active Not Available Not Available No t Available montelukast 10 mg tablet TAKE 1 TABLET BY MOUTH EVERY DAY IN THE MORNING active Not Available Not Available No t Available ziprasidone 40 mg capsule TAKE 1 CAPSULE BY MOUTH EVERY DAY AT BEDTIME active Not Available Not Available No t Available ergocalcife rol (vitamin D2) 1,250 mcg (50,000 unit) capsule TAKE 1 CAPSULE ONCE A WEEK active Not Available Not Available No t Available azelastine 137 mcg (0.1 %) nasal spray USE 1 SPRAY IN EACH NOSTRIL TWICE DAILY active Not Available Not Available No t Available methylpredn isolone 4 mg tablets in a dose pack FOLLOW PACKAGE DIRECTION S active Not Available Not Available No t Available fluticasone propionate 50 mcg/actuati on nasal spray,suspe nsion SHAKE LIQUID AND USE 1 SPRAY IN EACH NOSTRIL TWICE DAILY active Not Available Not Available No t Available amoxicillin 875 mg-potassiu m clavulanate 125 mg tablet TAKE 1 TABLET BY MOUTH EVERY 12 HOURS FOR 7 DAYS 03/29 completed Not Available Not Available Not Available Ventolin HFA 90 mcg/actuati on aerosol inhaler INHALE 1 TO 2 PUFFS INTO THE LUNGS EVERY 4 HOURS NEEDED active Not Available Not Available No t Available oxycodone 5 mg tablet TAKE 1 TABLET BY MOUTH THREE TIMES DAILY NEEDED 01/01 completed Not Available Not Available Not Available glycerin (adult) rectal suppository INSERT 1 SUPPOSITO RY RECTALLY DAILY FOR CONSTIPAT ION 03/29 completed Not Available Not Available Not Available tramadol ER 100 mg tablet,exte nded release 24 hr TAKE 1 TABLET BY MOUTH AT BEDTIME NEEDED active Not Available Not Available No t Available fenofibrate nanocrystal lized 48 mg tablet TAKE 1 TABLET BY MOUTH EVERY DAY 01/01 completed Not Available Not Available Not Available cholecalcif jag (vitamin D3) 1,250 mcg (50,000 unit) capsule TAKE ONE CAPSULE BY MOUTH EVERY WEEK active Not Available Not Available No t Available fenofibrate 54 mg tablet TAKE 1 TABLET BY MOUTH EVERY DAY active Not Available Not Available No t Available Allergy Relief (fexofenadi ne) 180 mg tablet Take 1 tablet every day by oral route for 30 days. active Not Available Not Available No t Available icosapent ethyl 1 gram capsule TAKE 2 CAPSULES BY MOUTH TWICE DAILY active Not Available Not Available No t Available Creon 36,000 unit-114,00 0 unit-180,00 0 unit capsule,del ayed release TAKE 2 CAPSULES BY MOUTH THREE TIMES DAILY WITH MEALS active Not Available Not Available No t Available Breo Ellipta 200 mcg-25 mcg/dose powder for inhalation INHALE 1 PUFF BY MOUTH DAILY active Not Available Not Available No t Available Xhance 93 mcg/actuati on breath activated aerosol USE 1 SPRAY IN EACH NOSTRIL TWICE A DAY active Not Available Not Available No t Available Ozempic 0.25 mg or 0.5 mg (2 mg/1.5 mL) subcutaneou s pen injector active Not Available Not Available Not Available Nucala 100 mg/mL subcutaneou s syringe active Not Available Not Available No t Available Nucala 100 mg/mL subcutaneou s auto-inject or 01/01 completed Not Available Not Available Not Available Ozempic 1 mg/dose (4 mg/3 mL) subcutaneou s pen injector INJECT 1 MILLIGRAM UNDER THE SKIN EVERY WEEK active Not Available Not Available No t Available BinaxNOW COVID-19 Ag Self Test kit TEST DIRECTED TODAY 03/29 completed Not Available Not Available Not Available Paxlovid 300 mg (150 mg x 2)-100 mg tablets in a dose pack TAKE DIRECTED ON PACK 03/29 completed Not Available Not Available Not Available Vitals Date Recorded Body height Heart rate Respiratory rate Body temperature Body mass index (BMI) Body weight Oxygen saturation Oxygen saturation in Arterial blood by Pulse oximetry Systolic blood pressure Diastolic blood pressure Provider Name and Address Organization Details Last Updated DateTime 3 177.8 cm 72 /min 15.99 /min 98.4 [degF] 31.1 kg/m2 06680.5 4 g 97 % 97 % 124 mm[Hg] 80 mm[Hg] Antonia Reyes CMA [place] [facility] 16:16:17 Social History Question Answer Notes LastModified by [employer] Details LastModified Time Tobacco Smoking Status Never Smoker Not Available [facility] 01/20/2023 14:26:08 What Is Your Level Of Caffeine Consumption? Moderate [id number] Information not available 01/20/2023 Sex: Unknown Functional Status Question Answer Note LastModified by [employer] Details LastModified Time Do you use any illicit or recreational drugs? No [id number] Information not available 01/20/2023 What is your level of alcohol consumption? None [id number] Information not available 01/20/2023 Mental Status None recorded. Family History Relationship Description Onset Age of this Age Resolved Age Notes LastModified by Organization Details LastModified Time Mother Diabetes mellitus [id number] Not available 01/20/2023 14:26:19 Mother Arthritis [id number] Not available 01/20/2023 14:26:19 Brother Hypertensive disorder [id number] Not available 01/20/2023 14:26:19 Father Asthma [id number] Not available 01/20/2023 14:26:19 Medical History Condition Response Diarrhea N Hernia(s) N Vomiting N Depression N Bloating N Prostate Problems Y Appetite, poor N Abnormal Weight Loss N Alcoholism N Falls or Gait Issues N Anxiety Disorder Y Hemorrhoids N Nausea Alone N Arthritis Y Heartburn/Reflux N Cancer Y ADHD N Bowel changes N Difficulty swallowing/Dysphagia N Heart Attack (SD)/Angina N B12 deficiency N Indigestion N Vomiting blood N Stomach pain N Ear or Hearing Problems Y Abnormal Weight Loss/Gain N Peptic Ulcer Disease N Anemia N restless leg syndrome N Constipation N Gas N Esophageal Reflux N Diabetes Y Patient denies significant past medical history N Vitamin D deficiency N Chronic Pain N Rectal Bleeding N Allergies Y Basal Cell Carcinoma N Bronchitis Y Mouth sores N Headaches or Dizziness N Past Encounters Encounter ID Performer Location Encounter Start Date Encounter Closed Date Diagnosis/Indication Diagnosis SNOMED-CT Code Diagnosis ICD10 Code Diagnosis Note [id number] Ty Elam, DO [facility] [address] [place] [address] 03/29/2023 15:34:10 03/29/2023 16:56:28 Exocrine pancreatic insufficiency 58244459 K86.81 continue on creon 36,000 units take 2 capsules tid with meals. script sent in today History of pancreatitis 3582295391 9107 Z87.19 Pancreatit is 05/08/22. ordered lab work Hypertriglyceridemia 302 195513 E78.2 on atorvastat inon fenofibrat stephanie vascepa ordered lab work Type 2 edison betes mellitus without complication 100906772 E11.9 continue medication continue to monitor ordered lab work History of polyp of colon 710560182 Z86.010 ordered colonoscop y discussed procedure and prep will need a ride home Dong's esophagus 3029 38468 K22.70 ordered egddiscuss ed procedurew ill need a ride home Non-alcoho lic fatty liver 228535362 K76.0 ordered elastogram ordered lab work Health Concerns Section Related Observation LastModified by Organization Detai ls LastModified Time None Recorded Concern Status LastModified by Organization Details LastModified Time None Recorded Advance Directives Directive None Recorded Payers Insurance Date Sequence Insurance Name Policy Number Policy Collazo Covered Member ID Collazo Member ID Guarantor Name 03/30/2023 1 [facility] (MEDICARE REPLACEMENT/ ADVANTAGE - PPO) [id number] Thomas Petty [id number] Thomas Petty 03/29/2023 1 [place] Thomas Petty [id number] Thomas Petty Notes Date Note Type Note Provider Name and Address Organization Details Recorded Time 03/29/2023 text/html Patient is here today referral from Bambi Rodríguez for screening colonoscopy. His last colonoscopy was in 2019 per patient.STated he had polyps removed at that time.Discussed he is due for a repeat colonoscopy.Will get him set up today. His last EGD with EUS was 06/04/2019:*Long segment Dong's esophagus*Small hiatal hernia EUS:*Evidence of hepatic steatosis EGD biopsy:*Dong's esophagus with mild chronic inflammation and fibrosis.*No evidence of dysplasia. History of pancreatitis per patient.Pancreatiti s 05/08/22.He stated they felt maybe it was caused due to his high triglycerides per patient.He is currently on ozempic for the past 3 months.Discussed ozempic can increase risk for pancreatitis.He is currently on creon. He stated he has high cholestrol and high triglycerides.He is currently taking atorvastatin 40 mg a day, fenofibrate 54 mg a day, along with vascepa.He stated his triglycerides have been over 1,000 in the past.--will order repeat blood work.-- He is a diabetic.He is currently on metformin along with ozempic.He is doing well on the medication.Continue s to monitor his blood sugar at home.He stated his blood sugar runs well at home. Ty Elam, DO [address] [place] [address], [place], [address], [facility]- [facility] 03/30/2023 13:59:47
--- OUTSIDE RECORDS SUMMARY | 2025-04-02 11:25 | XMS_ITS | Encounter Summary ---
Author Organization [facility] Address [address] [place] [address] Care Team Providers Care Battery Assembler Name Role Phone Wesly Davies MD Unavailable [phone] Wesly Davies MD Unavailable [phone] Meg Lynn APRN.[facility] Primary Care Provider Source Comments In the event this information is protected by the Federal Confidentiality of Alcohol and Drug AbusePatient Records regulations: The Federal rules restrict any use of the information to criminally investigate or prosecute any alcohol or drug abuse patient.[facility] Encounter Details Date Type Department Care Team (Late st Contact Info) Description 01/22/2025 Get Medical Advice Endocrinology [address] [place] [address] Kathy Bravo MD [address] [place] [address] EGD on SundayJanuary 23 Social History Tobacco Use Types Packs/Day Years Used Date Smoking Tobacco: Never Passive Smoke Exposure: Never Smokeless Tobacco: Never Alcohol Use Standard Drinks/Week Comments Not Currently 0 (1 standard drink = 0.6 oz pur e alcohol) [facility] Utilities Answer Date Recorded In [...] any time in the past 12 m [facility], were you homeless or living in a penitentiary (including now)? No 08/29/2024 Area Deprivation Index Answer Date Wilfred rded National Score (1-100), lower number is lower ri sk 84 01/23/2025 State Score (1-10), lower number is lower risk 8 01/23/2025 Data from: https://www.neighborhoodatlas.medicine.[facility].edu/. Last address used for calculation [address] [...] 04/10/2025 3:40 PM EDT [facility] [address] [place] [address] Kathy Bravo MD [address] [place] [address] April 10 virtual on cncer template, thanks! 07/07/2025 7:40 AM EDT [facility] [address] [place] [address] Kathy Bravo MD [address] [place] [address] Sept 16 740 virtual documented as of this encounter Visit Diagnoses Not on filedocumented in this encounter Care Teams Battery Assembler Relationship Specialty Start Date End Date Meg Lynn, SALES ENGINEER.CONSTRUCTION PLANT OPERATOR [address] [place] [address] PCP - General Family Medicine 08/15/24 Wesly Davies MD [address] [place] [address] Referring Gastroenterology 07/16/24 Wesly Davies MD [address] [place] [address] Referring Gastroenterology 07/25/24 documented as of this encounter
--- OUTSIDE RECORDS SUMMARY | 2025-04-02 11:25 | XMS_ITS | Encounter Summary ---
Author Organization [facility] Address [address] [place] [address] Care Team Providers Care Director Of Collections Name Role Phone Wesly Davies MD Unavailable [phone] Wesly Davies MD Unavailable [phone] Meg Lynn APRN.[facility] Primary Care Provider Source Comments In the event this information is protected by the Federal Confidentiality of Alcohol and Drug AbusePatient Records regulations: The Federal rules restrict any use of the information to criminally investigate or prosecute any alcohol or drug abuse patient.[facility] Encounter Details Date Type Department Care Team (Late st Contact Info) Description 09/25/2024 Patient Msg Endocrinology [address] [place] [address] Kathy Bravo MD [address] [place] [address] Update (And Sorry) Social History Tobacco Use Types Packs/Day Years Used Date Smoking Tobacco: Never Passive Smoke Exposure: Never Smokeless Tobacco: Never Alcohol Use Standard Drinks/Week Comments Not Currently 0 (1 standard drink = 0.6 oz pur e alcohol) [facility] Utilities Answer Date Recorded In the past 12 months has th e electric, gas, oil, or water [employer] threatened to shut off services in your [...] any time in the past [address] [facility], were you homeless or living in a alf (including now)? No 08/29/2024 Area Deprivation Index Answer Date Wilfred rded National Score (1-100), lower number is lower ri sk 84 07/17/2024 State Score (1-10), lower number is lower risk 8 07/17/2024 Data from: https://www.neighborhoodatlas.medicine.[facility].edu/. Last address used for calculation [address] [...] 04/10/2025 3:40 PM EDT [facility] [address] [place] [address] Kathy Bravo MD [address] [place] [address] April 10 virtual on cncer template, thanks! 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
--- OUTSIDE RECORDS SUMMARY | 2025-04-02 11:25 | XMS_ITS | Encounter Summary ---
Author Organization [facility] Address [address] [place] [address] Care Team Providers Care Side Framer Name Role Phone Meg Lynn APRN, CNP Primary Care Provid er Encounter Details Date Type Department Care Team (Latest Contact Info) Description 04/25/2024 Transcribe Orders [facility] [address] [place] [address] Danica Conklin MD [address] [place] [address] Cervical spinal stenosis (Primary Dx) Social History Tobacco Use Types Packs/Day Years Used Date Smoking Tobacco: Never Smokeless Tobacco: Never Alcohol Use Standard Drinks/Week Comments Not Currently 0 (1 standard drink = 0.6 oz pur e alcohol) on occasion [facility] Utilities Answer Date Recorded In the past 12 months has [employer] electric, gas, oil, or water company threatened to shut off services in your home? No 02/07/2024 AUDIT-C Answer Date Recorded Q1: How often do you have a drink containing alcohol? Never 05/19/2023 Q2: How many drinks containi ng alcohol do you have on a typical day when you are drinking? Patient does not drink Q3: How often do you have si x or more drinks on one occasion? Never 05/19/2023 Overall Financial Resource Strain (CARDIA) Answe r Date Recorded How hard is it for you to pa y for the very basics like food, housing, medical care, and heating? Not hard at all 04/23/2023 PHQ-2 Answer Date Recorded PHQ-9 Total Score 0 04/03/2024 Hunger Vital Sign Answer Date Recorded Within the past 12 months, y ou worried that your food would run out before you got the money to buy more. Never true 02/07/20 24 Within the past 12 months, t he food you bought just didn't last and you didn't have money to get more. Never true 02/07/2024 PRAPARE - Transportation Answer Date Re corded In the past 12 months, has l ack of transportation kept you from medical appointments or from getting medications? No 01/20 In the past 12 months, has l ack of transportation kept you from meetings, work, or from getting things needed for daily living? No 02/07/2024 Housing Stability Vital Sign Answer Erik e Recorded In the last 12 months, was t here a time when you were not able to pay the mortgage or rent on time? No 02/07/2024 In the last 12 months, how many places have you lived? 2 02/07/2024 In the last 12 months, was t here a time when you did not have a steady place to sleep or slept in a half-way (including now)? No 02/07/2024 Food Insecurity Answer Date Recorded Within the past 12 months, y ou worried that your food would run out before you got the money to buy more. 1 02/07/2024 Within the past 12 months, t he food you bought just didn't last and you didn't have money to get more. 1 02/07/2024 Interpersonal Safety Domain Source: IP Abuse Scr eening Answer Date Recorded Physical abuse Denies 04/02/2024 Verbal abuse Denies 04/02/2024 Emotional abuse Denies 04/02/2024 Financial abuse Denies 04/02/2024 Sexual abuse Denies 04/02/2024 Sex and Gender Information Value Date Recorded Sex Assigned at Male 01/30/2025 6:24 AM EDT Legal Sex Male 12:14 AM EST Gender Identity Male 01/30/2025 6:24 AM EDT Sexual Orientation Straight 01/30/2025 6: 24 AM EDT documented as of this encounter Plan of Treatment Upcoming Encounters Date Type Department Care Team (Late st Contact Info) Description 08/20/2025 11:00 AM EDT Office Visit [facility] Part of [address] [place] [address] Parvez Chatterjee MD [address] [place] [address], [facility] [address] [place] [address] one year PSA documented as of this encounter Goals Goal Patient Goal Type Associated Problems Recent Progress Patient-Stated? 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
--- OUTSIDE RECORDS SUMMARY | 2025-04-02 11:25 | XMS_ITS | Clinical Summary ---
Author Organization [facility] Address [address] [place] [address] Care Team Providers Care Credit Advisor Name Role Phone Meg Lynn APRN, CNP Primary Care Provid er Allergies Active Allergy Reactions Criticality Noted Date Comments Cat Dander High 11/17/2019 Codeine Hives,Nausea And Vomiting Medium 02/04/2018 Ibuprofen Diarrhea Low 04/02/2024 Ondansetron Hcl Anaphylaxis High 07/21/2019 Medications amitriptyline (ELAVIL) 50 MG tablet take 1 tablet by mouth at bedtime 0 8 Active mepolizumab (NUCALA) 100 MG SOLR injection Inject 1 mL into the skin every 30 days Active fluticasone furoate-vilanter ol (BREO ELLIPTA) 200-25 MCG/ACT AEPB inhaler 8 Active ziprasidone (GEODON) 40 MG capsule Take 1 capsule by mouth nightly 0 9 Active clonazePAM (KLONOPIN) 1 MG tablet 2 tablets at bedtime. Active b complex vitamins capsule Take 1 capsule by mouth daily Active Zinc 30 MG TABS Take by mouth daily Active clonazePAM (KLONOPIN) 0.5 MG tablet Take 1 tablet by mouth daily. morning Active traMADol (ULTRAM ER) 100 MG extended release tablet Take 1 tablet by mouth daily. Takes at 1400 1110/202 3 Active traMADol (ULTRAM) 50 MG tablet Take 2 tablets by mouth 2 times daily. Takes at 0600 and 1400 3 Active lipase-protease- amylase (CREON) 72835-452607 units CPEP delayed release capsuleIndicatio ns:Chronic pancreatitis, unspecified pancreatitis type (HCC),Medication refill Creon 65300 units oral delayed release capsule: TAKE 2 CAPSULES WITH MEALS (3 TIMES A DAY) AND 1 CAPSULE WITH SNACKS (1 DAILY). 200 capsule 1 4 Active Additional Information Patient taking differently: Creon 54951 units oral delayed release capsule: TAKE 3 CAPSULES WITH MEALS (3 TIMES A DAY) AND 1 CAPSULE WITH SNACKS (4 DAILY)., Reported on 02/26/2025 albuterol sulfate (PROAIR RESPICLICK) 108 (90 Base) MCG/ACT aerosol powder inhalationIndica tions:Asthma, unspecified asthma severity, unspecified whether complicated, unspecified whether persistent 2 puffs, Inhale, q6hr, PRN, # 1 EA, 0 Refill(s), Pharmacy: [facility] [id number] each 4 Active fexofenadine (CHAKA) 180 MG tablet Take 1 tablet by mouth at bedtime 90 tablet 1 4 Active montelukast (SINGULAIR) 10 MG tabletIndication s:Asthma, unspecified asthma severity, unspecified whether complicated, unspecified whether persistent 1 tablet Orally Once a day for 30 day(s) 90 tablet 1 4 Active prazosin (MINIPRESS) 1 MG capsule Take 1 capsule by mouth nightly 90 capsule 1 4 Active tamsulosin (FLOMAX) 0.4 MG capsuleIndicatio ns:BPH with obstruction/lowe r urinary tract symptoms Take 1 capsule by mouth daily 90 capsule 3 4 Active omeprazole (PRILOSEC) 40 MG delayed release capsuleIndicatio ns:Gastroesophag eal reflux disease without esophagitis 1 capsule 30 minutes before morning meal Orally Once a day 90 capsule 1 5 Active Insulin Lispro (HUMALOG IJ) Inject as directed Insulin pump Active fenofibrate (TRICOR) 54 MG tabletIndication s:Hypertriglycer idemia Take 1 tablet by mouth daily s DAWto pharmacy: Please dispense generic fenofibrate unless prescriber denote 90 tablet 1 5 Active ferrous sulfate (IRON 325) 325 (65 Fe) MG tabletIndication s:Anemia, unspecified type Take 1 tablet by mouth daily (with breakfast) 90 tablet 1 5 Active amLODIPine (NORVASC) 2.5 MG tablet Take 1 tablet by mouth daily 90 tablet 1 5 Active atorvastatin (LIPITOR) 40 MG tabletIndication s:Hypertriglycer idemia Take 1 tablet by mouth daily 90 tablet 1 5 Active carbamide peroxide (DEBROX) 6.5 % otic solutionIndicati ons:Bilateral impacted cerumen Place 5 drops into both ears 2 times daily as needed (earwax impaction) 15 mL 2 5 025 Active Problems Patient Care Coordination No te Formatting of this note migh t be different from the original. s. Discharged 12/03/2019 d/t lost to f/u Problem Noted Date Diagnosed Date Type 1 diabetes mellitus 11/27/2024 Mild malnutrition 02/08/2024 Acute pancreatitis without infection or necrosis 02/07/2024 Bronchitis 02/07/2024 Radiculopathy of lumbar region 05/29/2023 Presence of other specified devices 05/29/2023 Primary osteoarthritis 05/29/2023 Strain of lumbar region 05/29/2023 Trochanteric bursitis of right hip 05/29/2023 Acute on chronic pancreatitis 05/18/2023 Right knee pain 05/24/2020 Posttraumatic stress disorder 01/26/2020 Severe persistent asthma 08/06/2019 Dong's esophagus 07/03/2012 Chronic anxiety 10/31/2002 History of bowel resection Overview (02/04/2018): post trauma GERD (gastroesophageal reflux disease) Colon polyp Bipolar 1 disorder Low back pain Hypertriglyceridemia Fatty liver Resolved Problems Problem Noted Date Diagnosed Date Resolved Date Type 2 diabetes mellitus wit hout complication, without long-term current use of insulin 01/11/2024 11/27/2024 Type 2 diabetes mellitus 01/11/202403/2025 Depressive disorder 08/23/2020 05/18/20 23 Anxiety 01/26/2020 05/18/2023 Diverticular disease 01/26/2020 023 Enlarged prostate 01/26/2020 05/18/2023 Overview (01/26/2020): SLIGHT ENLARGED PROSTATE Internal hemorrhoids 01/26/2020 023 Pain 01/26/2020 02/25/2020 Overview (01/26/2020): chronic Prediabetes 08/21/2019 05/18/2023 Elevated liver function tests 03/25/2018 05/18/2023 Vitamin D deficiency 03/04/2018 023 Class 1 obesity due to exces s calories with body mass index (BMI) of 33.0 to 33.9 in adult 02/04/2018 05/18/2023 Seasonal allergies PTSD (post-traumatic stress disorder) 08/23/2020 Lung disease 05/18/2023 Overview (02/04/2018): where while blood cells attack lungs Elevated blood sugar 023 Renal lesion 05/18/2023 Encounters Date Type Department Care Team Description 02/26/2025 1:40 PM EDT Office Visit [facility] [address] [place] [address] Meg Lynn, NATE - RAMSEY Bilateral impacted cerumen (Primary Dx); Otalgia of both ears 02/25/2025 Telephone [facility] [address] [place] [address] Meg Lynn TRAUMA DOCTOR - MACHINE CRATER ED Follow-up (Transitional care call/) 02/24/2025 11:33 AM EDT - 02/24/2025 1:17 PM EDT Emergency [facility] Emergency Department [address] [place] [address] Nery Gibbons DO Contusion of finger of left hand, unspecified finger, initial encounter (Primary Dx) Discharge Disposition: Home or Self Care 02/24/2025 Travel 02/17/2025 Results Follow-Up [facility] [address] [place] [address] Meg Lynn, TRAUMA DOCTOR - MACHINE CRATER Results 02/17/2025 Results Follow-Up [facility] [address] [place] [facility] [address] Meg Lynn APRN - RAMSEY 02/16/2025 9:42 AM EDT - 02/16/2025 11:59 PM EDT Hospital Encounter [facility] [address] [place] [address] Left lower quadrant abdominal pain; History of diverticulitis Discharge Disposition: Home or Self Care 02/16/2025 9:40 AM EDT - 02/18/2025 11:59 PM EDT Hospital Encounter [facility] CT Scan [address] [place] [address] Left lower quadrant abdominal pain; History of diverticulitis Discharge Disposition: Home or Self Care 02/16/2025 Orders Only [facility] [address] [place] [facility] [address] Meg Lynn, TRAUMA DOCTOR - RAMSEY Left lower quadrant abdominal pain (Primary Dx); History of diverticulitis 02/16/2025 Telephone [facility] [address] [place] [address] Meg Lynn APRN - RAMSEY CT 02/16/2025 Telephone [facility] [address] [place] [address] Meg Lynn APRN - RAMSEY Diverticulitis 02/09/2025 Refill [facility] [address] [place] [address] Meg Lynn APRN - RAMSEY Medication Refill 01/30/2025 9:00 AM EDT Office Visit [facility] [address] [place] [address] Meg Lynn, TRAUMA DOCTOR - RAMSEY Binge eating (Primary Dx) 01/23/2025 Abstract [facility] [address] [place] [address] Meg Lynn APRN - RAMSEY 01/22/2025 Abstract [facility] [address] [place] [address] Meg Lynn APRN - CNP 01/12/2025 Refill [facility] [address] [place] [address] Meg Lynn APRN - CNP Medication Refill from Last 3 Months Immunizations Immunization Administration Dates Next Due COVID-19, MODERNA BLUE borde r, Primary or Immunocompromised, (age 12y+), IM, 100 mcg/0.5mL 07/07/2021,02/01/2021,01/03/2021 COVID-19, MODERNA, , (age 12y+), IM, 50mcg/0.5mL 07/14/2023 DTP/HiB 08/22/2024 Influenza Virus Vaccine 08/14/2023,06/29,10/01/2017,08/17 Influenza, AFLURIA (age 3 y+ ), FLUZONE, (age 6 mo+), Quadv MDV, 0.5mL 10/01/2017 Influenza, AFLURIA, FLUZONE, (age3 y+), IM, Trivalent MDV, 0.5mL 06/29/2020 Influenza, FLUARIX, FLULAVAL , FLUZONE (age 6 mo+) and AFLURIA, (age 3 y+), Quadv PF, 0.5mL 06/29/2020,08/01/2019,09/17/2018 Influenza, FLUCELVAX, (age 6 mo+), MDCK, Quadv PF, 0.5mL 08/13/2023 Meningococcal ACWY, MENQUADF I (MenACWY-TT), (age 2y+), IM, 0.5mL 08/22/2024 Meningococcal B, BEXSERO, (a ge 10y-25y), IM, 0.5mL 08/22/2024 Pneumococcal, PCV-13, PREVNA R 13, (age 6w+), IM, 0.5mL 08/06/2017,07/07/2017,11/01/2010 Pneumococcal, PCV20, PREVNAR 20, (age 6w+), IM, 0.5mL 08/22/2024 Pneumococcal, PPSV23, PNEUMO VAX 23, (age 2y+), SC/IM, 0.5mL 01/17/2017 TDaP, ADACEL (age 10y-64y), BOOSTRIX (age 10y+), IM, 0.5mL 12/07/2013 Zoster Recombinant (Shingrix) 08/07/2020, 020 Family History Medical History Relation Name Comments Diabetes Brother Jonathan Petty type 2 Cancer Father Max Petty Diabetes Maternal Uncle Brando Vang type 2 Relation Name Status Comments Brother Jonathan Petty Father Max Petty Maternal Grandfather Maternal Grandmother Maternal Uncle Brando Vang Mother Alive Paternal Grandfather Paternal Grandmother Social History Tobacco Use Types Packs/Day Years Used Date Smoking Tobacco: Never Smokeless Tobacco: Never Tobacco Cessation:Counseling Given: Not Answered Alcohol Use Standard Drinks/Week Comments Not Currently 0 (1 standard drink = 0.6 oz pur e alcohol) on occasion [facility] [employer] Answer Date Recorded In the past 12 months has [employer], [employer], oil, or water [employer] threatened to shut off services in your home? No 12/15/2024 AUDIT-C Answer Date Recorded Q1: How often do you have a drink containing alcohol? Never 12/05/2024 Q2: How many drinks containi ng alcohol do you have on a typical day when you are drinking? Patient does not drink Q3: How often do you have si x or more drinks on one occasion? Never 12/05/2024 Overall Financial Resource Strain (CARDIA) Answe r Date Recorded How hard is it for you to pa y for the very basics like food, housing, medical care, and heating? Not hard at all 06/18/2024 PHQ-2 Answer Date Recorded PHQ-9 Total Score 0 02/26/2025 Exercise Vital Sign Answer Date Recorde d On average, how many days pe r week do you engage in moderate to strenuous exercise (like a brisk walk)? 7 days 06/18/2024 On average, how many minutes do you engage in exercise at this level? 30 min 06/18/2024 Hunger Vital Sign Answer Date Recorded Within the past 12 months, y ou worried that your food would run out before you got the money to buy more. Never true 12/15/19 25 Within the past 12 months, t he food you bought just didn't last and you didn't have money to get more. Never true 12/15/2024 PRAPARE - Transportation Answer Date Re corded In the past 12 months, has l ack of transportation kept you from medical appointments or from getting medications? No 11/23 In the past 12 months, has l ack of transportation kept you from meetings, work, or from getting things needed for daily living? No 12/15/2024 Housing Stability Vital Sign Answer Erik e [...] place to sleep or slept in a intermediate (including now)? No 02/07/2024 Housing Stability Vital Sign Answer Erik e Recorded In the last 12 months, was t here a time when you were not able to pay the mortgage or rent on time? No 12/15/2024 In the past 12 months, how m any times have you moved where you were living? 0 12/15/2024 At any time in the past 12 m [facility], were you homeless or living in a intermediate (including now)? No 12/15/2024 Food Insecurity Answer Date Recorded Within the past 12 months, y ou worried that your food would run out before you got the money to buy more. 1 12/15/2024 Within the past 12 months, t he food you bought just didn't last and you didn't have money to get more. 1 12/15/2024 Interpersonal Safety Domain Source: IP Abuse Scr eening Answer Date Recorded Physical abuse Denies 02/24/2025 Verbal abuse Denies 02/24/2025 Emotional abuse Denies 02/24/2025 Financial abuse Denies 02/24/2025 Sexual abuse Denies 02/24/2025 Sex and Gender Information Value Date Recorded Sex Assigned at Male 01/30/2025 6:24 AM EDT Legal Sex Male 12:14 AM EST Gender Identity Male 01/30/2025 6:24 AM EDT Sexual Orientation Straight 01/30/2025 6: 24 AM EDT Last Filed Vital Signs Vital Sign Reading Time Taken Comments Blood Pressure 114/76 02/26/2025 1:37 PM EDT Pulse 77 02/26/2025 1:37 PM EDT Temperature 36.1 C (97 F) 02/26/2025 1:37 PM EDT Respiratory Rate 16 02/26/2025 1:37 PM EDT Oxygen Saturation 97% 02/26/2025 1:37 PM EDT Inhaled Oxygen Concentration - - Weight 91.2 kg (201 lb) 02/26/2025 1:37 PM EDT Height 177.8 cm (5' 10 ) 02/24/2025 11:30 AM EDT Body Mass Index 28.84 02/24/2025 11:30 AM EDT Plan of Treatment Upcoming Encounters Date Type Department Care Team (Late st Contact Info) Description 08/20/2025 11:00 AM EDT Office Visit [facility] Part of [address] [place] [address] Parvez Chatterjee MD [address] [place] [address], [address] [place] [address] one year PSA Health Maintenance Due Date Last Done Comments FIT/FOBT: Average risk 2014 Sigmoidoscopy/CT colonography 2014 COVID-19 Vaccine ( season) 2024 07/14/2023, 07/07/2021, 02/01/2021, Additional history exists Lipids 02/07/2025 02/08/2024, 07/22, 08/09/2020, Additional history exists Diabetic Alb to Cr ratio (uACR) test 04/03/2025 Postponed from 1987 (Not Indicated) Diabetic foot exam 04/03/2025 Postponed from 1979 (Not Indicated) Diabetic retinal exam 04/13/2025 Postpo una from 1987 (Not Indicated) Flu vaccine (Season Ended) 05/22/202508/14, 08/13/2023, 06/29/2020, Additional history exists A1C test (Diabetic or Prediabetic) 06/18/2025 06/18/2024, 08/09/2023, 05/24/2020, Additional history exists Annual Wellness Visit (Medicare) 06/19/2025 06/18/2024 Hepatitis B vaccine (1 of 3 - 19+ 3-dose series) 07/24/2025 Postponed from 1988 (Patient Refused) GFR test (Diabetes, CKD 3-4, OR last GFR 15-59) 02/16/2026 02/16/2025, 12/05/2024, 08/05/2024, Additional history exists Depression Monitoring 02/26/2026 02/26/2025, 025 Fecal-DNA (Cologuard): Average risk 05/30/2026 05/30/2023 Colonoscopy 10/02/2026 10/02/2023, 09/21, 07/03/2012 Colorectal Cancer Screen 10/02/2026 DTaP/Tdap/Td vaccine (3 - Td or Tdap) 08/22/2034 08/22/2024, 12/07/2013 HIV screen Completed 03/01/2018 Shingles vaccine Completed 08/07/2020, 06/05/2020 Hepatitis C screen Completed 02/07/2024, 05/14/2019 Hib vaccine Aged Out 08/22/2024 No longer eligi ble based on patient's age to complete this topic Meningococcal (ACWY) vaccine Aged Out 08/22/2024 No longer eligible based on patient's age to complete this topic Meningococcal B vaccine Aged Out 08/22/2024 No l onger eligible based on patient's age to complete this topic Pneumococcal 0-49 years Vaccine Discontinued 08/22/2024, 08/06/2017, 07/07/2017, Additional history exists Pneumococcal 50+ years Vaccine Completed 08/22/2024, 08/06/2017, 07/07/2017, Additional history exists Hepatitis A vaccine Aged Out No longe r eligible based on patient's age to complete this topic Polio vaccine Aged Out No longer elig ible based on patient's age to complete this topic Goals Goal Patient Goal Type Associated Problems Recent Progress Patient-Stated? 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 Procedures Procedure Name Priority Date/Time Associated Diagnosis Comments XR HAND LEFT (MIN 3 VIEWS) STAT 02/24/2025 11:[address] ABDOMEN PELVIS W IV CONTRAST Routine 02/16/2025 11:19 AM EDT Left lower quadrant abdominal pain History of diverticulitis BASIC METABOLIC PANEL STAT 02/16/2025 9:43 AM EDT History of diverticulitis CBC WITH AUTO DIFFERENTIAL Routine 02/16/2025 9:43 AM EDT Left lower quadrant abdominal pain POCT GLYCOSYLATED HEMOGLOBIN (HGB A1C) Routine 06/18/2024 2:30 PM EDT Type 2 diabetes mellitus without complication, without long-term current use of insulin (HCC) LDL CHOLESTEROL, DIRECT Routine 02/08/2024 5:45 AM EDT HEPATITIS PANEL, ACUTE Routine 02/07/2024 6:40 PM EDT COLONOSCOPY PROCEDURE Routine 10/02/2023 8:30 AM EST FECAL DNA COLORECTAL CANCER SCREENING (COLOGUARD) Routine 05/30/2023 1:26 PM EDT Colon cancer screening HIV SCREEN Routine 03/01/2018 11:47 AM EDT Other problems related to lifestyle from Last 3 Months or Most Recently Relevant to Health Maintenance Results * XR HAND LEFT (MIN 3 VIEWS) (02/24/2025 11:51 AM EDT) Anatomical Region Laterality Modality Hand, Wrist Computed Radiogr aphy 02/24/2025 1:05 PM EDT Impressions 02/24/2025 1:08 PM EDT No acute osseous abnormality. Narrative 02/24/2025 1:08 PM EDT EXAMINATION: THREE XRAY VIEWS OF THE LEFT HAND 02/24/2025 11:50 am COMPARISON: 11/30/2024 HISTORY: ORDERING SYSTEM PROVIDED HISTORY: injury to 3rd and 4fth digits TECHNOLOGIST PROVIDED HISTORY: injury to 3rd and 4fth digits FINDINGS: No acute fracture or dislocation. Joint spaces and alignment are maintained. Soft tissues are unremarkable. Procedure Note Diana Curtis MD - 02/24/2025 EXAMINATION: THREE XRAY VIEWS OF THE LEFT HAND 02/24/2025 11:50 am COMPARISON: 11/30/2024 HISTORY: ORDERING SYSTEM PROVIDED HISTORY: injury to 3rd and 4fth digits TECHNOLOGIST PROVIDED HISTORY: injury to 3rd and 4fth digits FINDINGS: No acute fracture or dislocation. Joint spaces and alignment aremaintained. Soft tissues are unremarkable. IMPRESSION: No acute osseous abnormality. us Nery Gibbons DO IMG DIAGNOSTIC IMAGING [facility] Final Result * CT ABDOMEN PELVIS W IV CONTRAST Additional Contrast? Radiologist Recommendation (02/16/2025 11:19 AM EDT) Anatomical Region Laterality Modality Abdomen, Pelvis, Hip Computed To mography 02/17/2025 8:20 AM EDT Impressions 02/17/2025 8:26 AM EDT 1. No acute finding in the abdomen or pelvis to correlate to the patient's clinical symptoms. 2. Hepatic steatosis. 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 Narrative 02/17/2025 8:26 AM EDT EXAMINATION: CT OF THE ABDOMEN AND PELVIS WITH CONTRAST 02/16/2025 11:16 am TECHNIQUE: CT of the abdomen and pelvis was performed with the administration of intravenous contrast. Multiplanar reformatted images are provided for review. Automated exposure control, iterative reconstruction, and/or weight based adjustment of the mA/kV was utilized to reduce the radiation dose to as low as reasonably achievable. COMPARISON: 12/05/2024 CT HISTORY: ORDERING SYSTEM PROVIDED HISTORY: Left lower quadrant abdominal pain TECHNOLOGIST PROVIDED HISTORY: STAT Creatinine as needed:->Yes rule out diverticulitis FINDINGS: Lower Chest: Chronic pattern of atelectasis in the right middle lobe. Base of the heart normal. Organs: Diffuse hepatic steatosis. Cholecystectomy with no biliary dilatation. Prior surgical change of Whipple. 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 Kidneys and adrenal glands are normal. GI/Bowel: Stomach and small bowel normal. Prior appendectomy. The colon is normal. Pelvis: The bladder is unremarkable. Normal prostate. Peritoneum/Retroperitoneum: The aorta tapers normally. No lymph node enlargement. Bones/Soft Tissues: Prior kyphoplasty at L3 and also seen at T9. Procedure Note Parvez Kwon IV, MD - 02/17/2025 EXAMINATION: CT OF THE ABDOMEN AND PELVIS WITH CONTRAST 02/16/2025 11:16 am TECHNIQUE: CT of the abdomen and pelvis was performed with the administration of intravenous contrast. Multiplanar reformatted images are provided forreview. Automated exposure control, iterative reconstruction, and/or weightbased adjustment of the mA/kV was utilized to reduce the radiation dose to aslow as reasonably achievable. COMPARISON: 12/05/2024 CT HISTORY: ORDERING SYSTEM PROVIDED HISTORY: Left lower quadrant abdominal pain TECHNOLOGIST PROVIDED HISTORY: STAT Creatinine as needed:->Yes rule out diverticulitis FINDINGS: Lower Chest: Chronic pattern of atelectasis in the right middle lobe.Base of the heart normal. Organs: Diffuse hepatic steatosis. Cholecystectomy with no biliary dilatation. Prior surgical change of Whipple. Evidence of splenectomywith mild splenosis in the left upper quadrant. Kidneys and adrenal glandsare normal. GI/Bowel: Stomach and small bowel normal. Prior appendectomy. The colonis normal. Pelvis: The bladder is unremarkable. Normal prostate. Peritoneum/Retroperitoneum: The aorta tapers normally. No lymph node enlargement. Bones/Soft Tissues: Prior kyphoplasty at L3 and also seen at T9. IMPRESSION: 1. No acute finding in the abdomen or pelvis to correlate to thepatient's clinical symptoms. 2. Hepatic steatosis. 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 Meg Lynn TRAUMA DOCTOR - MACHINE CRATER [facility] CT ORDERABLES Fi nal Result * (ABNORMAL) CBC with Auto Differential (02/16/2025 9:43 AM EDT) WBC 11.7(H) 3.5 - 11.3 k/uL 02/16/2025 9:43 AM EDT [facility] RBC 4.47 4.21 - 5.77 m/uL 02/16/2025 9:43 AM [facility] Hemoglobin 12.5(L) 13.0 - 17.0 g/dL 02/16/2025 9:43 AM [facility] Hematocrit 39.9(L) 40.7 - 50.3 % 02/16/2025 9:43 AM [facility] MCV 89.3 82.6 - 102.9 fL 02/16/2025 9:43 AM [facility] MCH 28.0 25.2 - 33.5 pg 02/16/2025 9:43 AM [facility] MCHC 31.3 28.4 - 34.8 g/dL 02/16/2025 9:43 AM [facility] RDW 15.3(H) 11.8 - 14.4 % 02/16/2025 9:43 AM [facility] Platelets 437 138 - 453 k/uL 02/16/2025 9:43 AM [facility] MPV 9.2 8.1 - 13.5 fL 02/16/2025 9:43 AM [facility] NRBC Automated 0.0 0.0 per 100 WBC 02/16/2025 9:43 AM [facility] Neutrophils % 63 36 - 65 % 02/16/2025 9:43 AM [facility] Lymphocytes % 25 24 - 43 % 02/16/2025 9:43 AM [facility] Monocytes % 10 3 - 12 % 02/16/2025 9:43 AM [facility] Eosinophils % 1 1 - 4 % 02/16/2025 9:43 AM [facility] Basophils % 1 0 - 2 % 02/16/2025 9:43 AM [facility] Immature Granulocytes % 0 0 % 02/16/2025 9:43 AM [facility] Neutrophils Absolute 7.30 1.50 - 8.10 k/uL 02/16/2025 9:43 AM [facility] Lymphocytes Absolute 2.97 1.10 - 3.70 k/uL 02/16/2025 9:43 AM EDT [facility] Monocytes Absolute 1.21(H) 0.10 - 1.20 k/uL 02/16/2025 9:43 AM EDT [facility] Eosinophils Absolute 0.06 0.00 - 0.44 k/uL 02/16/2025 9:43 AM EDT [facility] Basophils Absolute 0.09 0.00 - 0.20 k/uL 02/16/2025 9:43 AM EDT [facility] Immature Granulocytes Absolute 0.04 0.00 - 0.30 k/uL 02/16/2025 9:43 AM [facility] Blood BLOOD SPECIMEN / Unknown 02/16/2025 9:43 AM EDT 02/16/2025 9:44 AM EDT Meg Lynn TRAUMA DOCTOR - MACHINE CRATER HEMATOLOGY ORDERABLE S Final Result [facility] [address] [phone] * (ABNORMAL) Basic Metabolic Panel (02/16/2025 9:43 AM EDT) Sodium 139 136 - 145 mmol/L 02/16/2025 9:43 AM [facility] Potassium 5.1 3.7 - 5.3 mmol/L 02/16/2025 9:43 AM [facility] Chloride 100 98 - 107 mmol/L 02/16/2025 9:43 AM [facility] CO2 31 20 - 31 mmol/L 02/16/2025 9:43 AM [facility] Anion Gap 8(L) 9 - 16 mmol/L 02/16/2025 9:43 AM [facility] Glucose 117(H) 74 - 99 mg/dL 02/16/2025 9:43 AM [facility] BUN 14 6 - 20 mg/dL 02/16/2025 9:43 AM [facility] Creatinine 1.0 0.70 - 1.20 mg/dL 02/16/2025 9:43 AM EDT [facility] Est, [place] Filt Rate >90 >60 mL/min/1.7 3m2 02/16/2025 9:43 AM EDT [facility] Comment: These results are not intended for [...] following therapy that affects renal tubular secretion. BUN/Creatinine Ratio 14 9 - 20 02/16/2025 9:43 AM EDT [facility] Calcium 9.9 8.6 - 10.4 mg/dL 02/16/2025 9:43 AM EDT [facility] Blood BLOOD SPECIMEN / Unknown 02/16/2025 9:43 AM EDT 02/16/2025 9:44 AM EDT Meg Kenney MACHINE CRATER CHEMISTRY ORDERABLES Final Result Performing Organization Address City/State/[facility] Co de Phone Number [facility] [address] [phone] * (ABNORMAL) POCT glycosylated hemoglobin (Hb A1C) (06/18/2024 2:30 PM EDT) Hemoglobin A1C 6.7 % BLOOD SPECIMEN / Unknown 06/18/2024 2:30 PM EDT Meg Lynn APRN - MACHINE CRATER POINT OF CARE TEST O RDERABLES Final Result * LDL Cholesterol, Direct (02/08/2024 5:45 AM EDT) LDL Direct 65 mg/dL 02/08/2024 5:45 AM EDT [facility] 02/08/2024 5:45 AM EDT 02/08/2024 6:17 AM EDT Rosenda Rankin TRAUMA DOCTOR - MACHINE CRATER CHEMISTRY ORDERABLES Fi nal Result Performing Organization Address [facility] Co de Phone Number [facility] [address] [place] [address], [facility] [phone] [place] [address], [facility] [phone] * Hepatitis Panel, Acute (02/07/2024 6:40 PM EDT) [facility] Hepatitis B Surface Ag NONREACTIVE NONREACTIVE 02/07/2024 6:[address] [facility] Hepatitis C Ab NONREACTIVE NONREACTIVE 02/07/20 6:[address] [facility] Comment: The hepatitis C procedure used in [...] recommended by ordering HCV RNA by PCR. Hep B Core Ab, IgM NONREACTIVE NONREACTIVE 01/20 6:40 PM EDT [facility] Hep A IgM NONREACTIVE NONREACTIVE 02/07/2024 6:40 PM EDT [facility] Blood BLOOD SPECIMEN / Unknown 02/07/2024 6:40 PM EDT 02/07/2024 6:50 PM EDT Sean Shepard MD IMMUNOLOGY ORDERABLES Final Resu lt Performing Organization Address City/[facility]/ZIP Co de Phone Number [facility] [address] [place] [address] [place] [address], [facility] [phone] * Colonoscopy (10/02/2023 8:30 AM EST) Kendrick Fields, User - 10/02/2023 8:30 AM EST No dictation Carissa Alexander MD ENDOSCOPY ORDERABLES Final Res ult * (ABNORMAL) Fecal DNA Colorectal cancer screening (Cologuard) (05/30/2023 1:26 PM EDT) FIT-DNA (Cologuard) Positive( A) Negative 06/08/2023 1:37 PM EDT [facility] (CLIA #:[id number]) Comment: POSITIVE TEST RESULT. A positive Cologuard result should be followed with a colonoscopy or visual examination of the colon. The normal value (reference range) for this assay is negative. TEST DESCRIPTION: Composite algorithmic analysis of stool DNA-biomarkers with hemoglobin immunoassay. Quantitative values of individual biomarkers are not reportable and are not associated with individual biomarker result reference ranges. Cologuard is intended for colorectal cancer screening of adults of either sex, 45 years or older, who are at average-risk for colorectal cancer (CRC). Cologuard has been approved for use by the U.S. FDA. The performance of Cologuard was established in a cross sectional study of average-risk adults aged 50-84. Cologuard performance in patients ages 45 to 49 years was estimated by sub-group analysis of near-age groups. Colonoscopies performed for a positive result may find as the most clinically significant lesion: colorectal cancer [4.0%], advanced adenoma (including sessile serrated polyps greater than or equal to 1cm diameter) [20%] or non- advanced adenoma [31%]; or no colorectal neoplasia [45%]. These estimates are derived from a prospective cross-sectional screening study of 10,000 individuals at average risk for colorectal cancer who were screened with both Cologuard and colonoscopy. (Venita Flowers al, N Engl J Med 2014;370(14):9787-1248.) Cologuard may produce a false negative or false positive result (no colorectal cancer or precancerous polyp present at colonoscopy follow up). A negative Cologuard test result does not guarantee the absence of CRC or advanced adenoma (pre-cancer). The current Cologuard screening interval is every 3 years. ([place] Cancer Society and U.S. Multi-Society Task Force). Cologuard performance data in a 10,000 patient pivotal study using colonoscopy as the reference method can be accessed at the following location: [email or web address]/results. Additional description of the Cologuard test process, warnings and precautions can be found at www.coliSitesrd.com. Feces (substance) STOOL SPECIMEN / Unknown 05/30/2023 1:26 PM EDT 05/31/2023 10:23 PM EDT us Meg Lynn TRAUMA DOCTOR - [facility] MICROBIOLOGY - GENER AL ORDERABLES Final Result [facility] (CLIA #:[id number]) [address] [place] [address], [facility] [phone] * HIV Screen (03/01/2018 11:47 AM EDT) [facility] HIV-2 Ab Negative Negative 03/04/2018 12:[address] [facility] Comment: The specimen was non-reactive for HIV-1 and HIV-2 antibodies, and p24 antigen. Based on this non-reactive screen result, further reflexive testing was not indicated and was, therefore, not performed INTERPRETIVE INFORMATION: HIV-1,2 Combo Ag/Ab EIA w/Reflex This assay should not be used for blood donor screening, associated re-entry protocols, or for screening Human Cell, Tissues and Cellular and Tissue-Based Products (HCT/P). Performed by [facility], [address] [place] [address] [email or web address], Saw Zhu MD - Lab. Director Performed at [facility]. [place], [place] BLOOD SPECIMEN / Unknown 03/01/2018 11:47 AM EDT 03/01/2018 1:46 PM EDT Lillian Figueroa MD IMMUNOLOGY ORDERABLES Final R esult [facility] [address] [place] [address], [facility] [phone] [facility] [address] [place] [address], [facility] [phone] from Last 3 Months or Most Recently Relevant to Health Maintenance Insurance MEDICARE MEDICAID [place] [facility] DUAL COMPLETE [place] Advance Directives * Full Code (Latest Code Status on File) Date Activated Date Inactivated Comments 02/07/2024 1:19 PM 02/08/2024 4:10 PM * Full Code Date Activated Date Inactivated Comments 05/19/2023 12:25 AM 05/22/2023 7:29 PM Healthcare Agents on File Name Relationship Healthcare Agent Relationship Communication January [place] Spouse Primary Decision Maker [email or web address] Care Teams Credit Advisor Relationship Specialty Start Date End Date Meg Lynn APRN - MACHINE CRATER [address] [place] [address] PCP - General Certified Nurse Practitioner 04/23/23
--- OUTSIDE RECORDS SUMMARY | 2025-04-02 11:25 | XMS_ITS | Encounter Summary ---
Author Organization [facility] Address [address] [place] [address] Care Team Providers Care Um Nurse Name Role Phone Wesly Davies MD Unavailable [phone] Wesly Davies MD Unavailable [phone] Meg Lynn APRN.[facility] Primary Care Provider Source Comments In the event this information is protected by the Federal Confidentiality of Alcohol and Drug AbusePatient Records regulations: The Federal rules restrict any use of the information to criminally investigate or prosecute any alcohol or drug abuse patient.[facility] Encounter Details Date Type Department Care Team (Late st Contact Info) Description 10/28/2024 Patient Msg Diabetic Education Main X20 [address] [place] [address] Dario Hines, [facility] [address] [place] [address] Pump Class Social History Tobacco Use Types Packs/Day Years Used Date Smoking Tobacco: Never Passive Smoke Exposure: Never Smokeless Tobacco: Never Alcohol Use Standard Drinks/Week Comments Not Currently 0 (1 standard drink = 0.6 oz pur e alcohol) [facility] Utilities Answer Date Recorded In the past [...] risk 8 07/17/2024 Data from: https://www.neighborhoodatlas.medicine.[facility].edu/. Last address used for calculation [address] [...] 04/10/2025 3:40 PM EDT [facility] [address] [place] [address] Kathy Bravo MD [address] [place] [address] April 10 virtual on cncer template, thanks! 07/07/2025 7:40 AM EDT [facility] Endocrinology [address] [place] [address] Kathy Bravo MD [address] [place] [address] Jun 16 740 virtual documented as of this encounter Visit Diagnoses Not on filedocumented in this encounter Care Teams Um Nurse Relationship Specialty Start Date End Date Meg Lynn, PRODUCTION QUALITY MANAGER.NURSING SERVICES MANAGER [address] [place] [address] PCP - General Family Medicine 08/15/24 Wesly Davies MD [address] [place] [address] Referring Gastroenterology 07/16/24 Wesly Davies MD [address] [place] [address] Referring Gastroenterology 07/25/24 documented as of this encounter
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
--- OUTSIDE RECORDS SUMMARY | 2025-04-02 11:25 | XMS_ITS | Encounter Summary ---
Author Organization [facility] Address [address] [place] [address] Care Team Providers Care Case Operator Name Role Phone Wesly Davies MD Unavailable [phone] Wesly Davies MD Unavailable eMg Lynn APRN.[facility] Primary Care Provider Source Comments In the event this information is protected by the Federal Confidentiality of Alcohol and Drug AbusePatient Records regulations: The Federal rules restrict any use of the information to criminally investigate or prosecute any alcohol or drug abuse patient.[facility] Encounter Details Date Type Department Care Team (Late st Contact Info) Description 12/05/2024 Get Medical Advice General Surgery [address] [address] [place] [address] [address] [place] [id number] Metal on right side ribs xray Social History Tobacco Use Types Packs/Day Years Used Date Smoking Tobacco: Never Passive Smoke Exposure: Never Smokeless Tobacco: Never Alcohol Use Standard Drinks/Week Comments Not Currently 0 (1 standard drink = 0.6 oz pur e alcohol) [facility] Utilities Answer Date Recorded In the past [...] any time in the past 12 m [facility], were you homeless or living in a custodial (including now)? No 08/29/2024 Area Deprivation Index Answer Date Wilfred rded National Score (1-100), lower number is lower ri sk 84 07/17/2024 State Score (1-10), lower number is lower risk 8 07/17/2024 Data from: https://www.neighborhoodatlas.medicine.[facility].edu/. Last address used for calculation [...] 04/10/2025 3:40 PM EDT [facility] [address] [place] [address] Kathy Bravo MD [address] [place] [address] April 10 340 virtual on cncer template, thanks! 07/07/2025 7:40 AM EDT [facility] Endocrinology [address] [place] [address] Kathy Bravo MD [address] [place] [address] Jun 16 740 virtual documented as of this encounter Visit Diagnoses Not on filedocumented in this encounter Care Teams Case Operator Relationship Specialty Start Date End Date Meg Lynn, OCULAR CARE TECHNICIAN.CLINICAL ALLERGIST [address] [place], [place] [id number] PCP - General Family Medicine 08/15/24 Wesly Davies MD [address] [place] [address] Referring Gastroenterology 07/16/24 Wesly Davies MD [address] [place] [address] Referring Gastroenterology 07/25/24 documented as of this encounter
--- OUTSIDE RECORDS SUMMARY | 2025-04-02 11:25 | XMS_ITS | Encounter Summary ---
Author Organization [facility] Address [address] [place] [address] Care Team Providers Care Skirt Trimmer Name Role Phone Wesly Davies MD Unavailable [phone] Wesly Davies MD Unavailable [phone] Meg Lynn APRN.[facility] Primary Care Provider Source Comments In the event this information is protected by the Federal Confidentiality of Alcohol and Drug AbusePatient Records regulations: The Federal rules restrict any use of the information to criminally investigate or prosecute any alcohol or drug abuse patient.[facility] Reason for Visit * Reason Comments Insulin Pump Settings Encounter Details Date Type Department Care Team (Late st Contact Info) Description 10/07/2024 Telephone Diabetic Education Main X20 [address] [place] [address] Dario Hines, [facility] [address] [place] [address] Insulin Pump Settings Social History Tobacco Use Types Packs/Day Years Used Date Smoking Tobacco: Never Passive Smoke Exposure: Never Smokeless Tobacco: Never Alcohol Use Standard Drinks/Week Comments Not Currently 0 (1 standard drink = 0.6 oz pur e alcohol) [facility] Utilities Answer Date Recorded In the [...] any time in the past 12 m [facility], were you homeless or living in a care home (including now)? No 08/29/2024 Area Deprivation Index Answer Date Wilfred rded National Score (1-100), lower number is lower ri sk 84 07/17/2024 State Score (1-10), lower number is lower risk 8 07/17/2024 Data from: https://www.neighborhoodatlas.medicine.[facility].edu/. Last address used for calculation [address] 07/17/2024 Sex and Gender Information Value Date Recorded Sex Assigned at Male 12/24/2024 10:21 AM EST Legal Sex Male 4:42 PM EDT Gender Identity Male 12/24/2024 10:21 AM EST Sexual Orientation Straight 12/24/2024 10 :21 AM EST documented as of this encounter Miscellaneous Notes * Telephone Encounter - Dario Hines RN - 10/07/2024 8:[address] 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 I will leave the target changes up to you as we aren't able to monitor reports with [employer]. Please let me know if you have any questions! Thanks, Benji Hines, REFINERY PROCESS ENGINEER documented in this encounter Plan of Treatment Upcoming Encounters Date Type Department Care Team (Latest Contact Info) Description 04/10/2025 3:40 PM EDT [facility] Endocrinology [address] [place] [address] Kathy Bravo MD [address] [place], [place] [id number] April 10 virtual on cncer template, thanks! 07/07/2025 7:40 AM EDT [facility] Endocrinology [address] [place] [address] Kathy Bravo MD [address] [place], [place] [id number] Jul 07 740 virtual documented as of this encounter Visit Diagnoses Not on filedocumented in this encounter Care Teams Skirt Trimmer Relationship Specialty Start Date End Date Meg Lynn, GAS LINE REPAIRER.POULTRY HELPER [address] [place] [address] PCP - General Family Medicine 08/15/24 Wesly Davies MD [address] [place], [place] [id number] Referring Gastroenterology 07/16/24 Wesly Davies MD [address] [place], [place] [address] Referring Gastroenterology 07/25/24 documented as of this encounter
--- OUTSIDE RECORDS SUMMARY | 2025-04-02 11:25 | XMS_ITS | Clinical Summary ---
Author Organization [facility] Address [address] [place] [address] Care Team Providers Care Land Checker Name Role Phone Unavailable Primary Care Provider Unavailabl e Social History Tobacco Use Types Packs/Day Years Used Date Smoking Tobacco: Never Assessed Sex and Gender Information Value Date Recorded Sex Assigned at Not on file Legal Sex Male 10:53 PM EDT Gender Identity Not on file Sexual Orientation Not on file Plan of Treatment Not on file
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
--- OUTSIDE RECORDS SUMMARY | 2025-04-02 11:25 | XMS_ITS | Encounter Summary ---
Author Organization [facility] Address [address] [place] [address] Care Team Providers Care Flight Dispatcher Name Role Phone Wesly Davies MD Unavailable [phone] Wesly Davies MD Unavailable [phone] Meg Lynn APRN.[facility] Primary Care Provider Source Comments In the event this information is protected by the Federal Confidentiality of Alcohol and Drug AbusePatient Records regulations: The Federal rules restrict any use of the information to criminally investigate or prosecute any alcohol or drug abuse patient.[facility] Encounter Details Date Type Department Care Team (Latest Contact Info) Description 03/31/2025 Travel Social History Tobacco Use Types Packs/Day Years Used Date Smoking Tobacco: Never Passive Smoke Exposure: Never Smokeless Tobacco: Never Alcohol Use Standard Drinks/Week Comments Not Currently 0 (1 standard drink = 0.6 oz pur e alcohol) [facility] Utilities Answer Date Recorded In the past 12 months has e electric, gas, oil, or water company [...] any time in the past 12 m [facility], were you homeless or living in a penitentiary (including now)? No 08/29/2024 Area Deprivation Index Answer Date Wilfred rded National Score (1-100), lower number is lower ri sk 84 01/23/2025 State Score (1-10), lower number is lower risk 8 01/23/2025 Data from: https://www.neighborhoodatlas.medicine.[facility].edu/. Last address used for calculation [address] [...] 04/10/2025 3:40 PM EDT [facility] [address] [place] [address] Kathy Bravo MD [address] [place], [place] [id number] April 10 340 virtual on cncer template, thanks! 07/07/2025 7:40 AM EDT [facility] [address] [place] [address] Kathy Bravo MD [address] [place] [address] Sept 16 740 virtual documented as of this encounter Visit Diagnoses Not on filedocumented in this encounter Care Teams Flight Dispatcher Relationship Specialty Start Date End Date Meg Lynn APRN.FLYER REPAIRER [address] [place] [address] PCP - General Family Medicine 08/15/24 Wesly Davies MD [address] [place] [address] Referring Gastroenterology 07/16/24 Wesly Davies MD [address] [place] [address] Referring Gastroenterology 07/25/24 documented as of this encounter
--- NOTE | 2025-04-02 12:00 | PM.CN ---
Consult Note: HPI Data of Consult Patient: known to practice within the last 3 years Requesting Physician: Vanessa Chavez NP Primary Care Provider: Meg Lynn Consult Narrative Reason for consult: neck pain, back pain, bilateral knee pain Narrative: 54yom who presents for assessment of chronic back and knee pain. has continued in chiropractic therapy >6 weeks, without benefit. failed provider guided HEP for 6 weeks. uses tramadol. denies adverse med side effects. most recent bilateral C5-6 TFESI >50% improvement ongoing. pt previously underwent splenectomy and pancreatectomy at [facility], now utilizing an insulin pump for type 1 DM. continues to utilize scs system with mild benefit, has not contact device reps. cc:: CC: Vanessa Chavez NP Review of Systems ROS Status of ROS 10 or more systems reviewed and unremarkable except as noted in history and below [facility] Medical History (Updated 04/02/25 @ 12:14 by Vanessa Chavez NP) Pancreatic cancer ?C25.9 - Malignant neoplasm of pancreas, unspecified (ICD-10) Diabetes ?E11.9 - Type 2 diabetes mellitus without complications (ICD-10) High cholesterol ?E78.00 - Pure hypercholesterolemia, unspecified (ICD-10) Surgical History History of back surgery ?Z98.890 - Other specified postprocedural states (ICD-10) Hx of cholecystectomy ?Z90.49 - Acquired absence of other specified parts of digestive tract (ICD-10) Status post insertion of spinal cord stimulator ?Z96.89 - Presence of other specified functional implants (ICD-10) History of kyphoplasty ?Z98.890 - Other specified postprocedural states (ICD-10) History of splenectomy ?Z90.81 - Acquired absence of spleen (ICD-10) 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 (ICD-10) Meds Home Medications and Allergies Home Medications ?Medication ?Instructions ?Recorded ?Confirmed ?Type amitriptyline 50 mg tablet 50 mg PO DAILY 04/14/24 12/22/24 History amlodipine 2.5 mg tablet 2.5 mg PO DAILY 04/14/24 12/22/24 History atorvastatin 40 mg tablet 40 mg PO DAILY 04/14/24 12/22/24 History cholecalciferol (vitamin D3) 50 5,000 unit PO DAILY 04/14/24 12/22/24 History mcg (2,000 unit) capsule (D3-2000) fenofibrate 54 mg tablet 54 mg PO DAILY 04/14/24 12/22/24 History ferrous sulfate 325 mg (65 mg 325 mg PO DAILY 04/14/24 12/22/24 History iron) tablet (Feosol) fexofenadine 180 mg tablet 180 mg PO DAILY 04/14/24 12/22/24 History evncrg-zuybgabq-gtilbzs 1 cap PO TID 04/14/24 12/22/24 History 36,000-114,000-180,000 unit capsule,delay rel (Creon) mepolizumab 100 mg/mL subcutaneous mg subcut .MONTHLY 04/14/24 History syringe (Nucala) montelukast 10 mg tablet 10 mg PO DAILY 04/14/24 12/22/24 History omeprazole 40 mg capsule,delayed 40 mg PO DAILY 04/14/24 12/22/24 History release prazosin 1 mg capsule 1 mg PO DAILY 04/14/24 12/22/24 History vitamin B complex (Vitamins B 1 cap PO DAILY 04/14/24 12/22/24 History Complex capsule) ziprasidone HCl 40 mg capsule 40 mg PO .QD 04/14/24 12/22/24 History tramadol 100 mg capsule 100 mg PO DAILY PRN pain #30 caps 10/30/24 12/22/24 Rx 24h,extended release(25-75) tramadol 50 mg tablet See Rx Instructions .Route 10/30/24 12/22/24 Rx .COMPLEX PRN pain #120 tabs fluticasone furoate 50 inhalation 11/24/24 History mcg-vilanterol 25 mcg/dose inhalation powder (Breo Ellipta) tramadol 100 mg tablet,extended 100 mg PO DAILY PRN pain #30 tabs 12/29/24 Rx release 24 hr tramadol 50 mg tablet See Rx Instructions .Route 12/29/24 Rx .COMPLEX PRN pain #120 tabs tramadol 100 mg tablet,extended 100 mg PO DAILY PRN severe pain 01/30/25 Rx release 24 hr (scale score 7-10) #30 tabs tramadol 50 mg tablet 100 mg (2 x 50 mg) PO BID PRN 01/30/25 Rx pain, severe #120 tabs tramadol 100 mg tablet,extended 100 mg PO DAILY #30 tabs 03/03/25 Rx release 24 hr tramadol 50 mg tablet 100 mg (2 x 50 mg) PO BID PRN pain 03/03/25 Rx #120 tabs Allergies Allergy/AdvReac Type Severity Reaction Status Date / Time codeine Allergy Mild Hives Verified 12/22/24 09:49 ibuprofen Allergy Mild Hives Verified 12/22/24 09:49 ondansetron (From Zofran) Allergy Mild Hives Verified 12/22/24 09:49 naproxen (From Aleve) AdvReac Mild Vomiting Verified 12/22/24 09:49 Exam Constitutional Documenting provider has reviewed patient's vital signs: yes Common normals: no apparent distress, oriented x3, healthy appearing, alert and well nourished General appearance: cooperative HENMT Common normals: normocephalic, hearing grossly normal bilaterally and moist oral mucous membranes Head and scalp: normocephalic Eye Common normals: PERRL Pupil: PERRL Neck & C-Spine Common normals: full ROM General: normal visual inspection Cervical spine: normal cervical lordosis and pain with cervical ROM Other: negative spurlings strength 5/5 in BUE Chest Common normals: inspection of chest normal Respiratory Common normals: normal respiratory effort, no retractions and no use of accessory muscles Back & Pelvis Thoracic spine/upper back: thoracic ROM normal, pain with ROM and thoracic spinal tenderness; no paraspinal muscle tenderness and no paraspinal muscle spasm Other: positive facet loading pain increased T6-9 facets negative radiculopathy diffuse pain Extremity Right lower extremity: knee joint Left lower extremity: knee joint Other: bilateral knees moderate edema, severe crepitus, enlarged proximal diameter. no instability noted. pain with medial and lateral stress testing Neuro Common normals: oriented x3 Sensorium/orientation: alert Motor exam: strength 5/5 throughout and no movement abnormalities noted Psych Common normals: mental status grossly normal, thought process normal, cooperative, affect normal, speech normal and activity/motor behavior normal Speech: normal speech Thought process: normal thought process Results Additional Findings Additional findings: If on a controlled substance or opioids, I have checked an OARRS report on this patient and there are no aberrancies noted in the prescribing history.??If on a controlled substance or opioid a drug screen was completed and reviewed within the last year, and if there has not been a drug screen completed we ordered one today to monitor higher risk, state monitored pain medication use. As part of providing excellent, safe, comprehensive care, the following was completed at our patient's visit: 1. A medication reconciliation and review to ensure accurate knowledge of current/active medications, including asking our patients to inform us about any wrbr-cfo-airpyll medications or herbal remedies/nutritional supplements/alternative remedies. 2. A review to specifically ensure our patients have had annual screening for screening for depression, screening for tobacco use, and screening for unhealthy alcohol use. For concerning screenings had a discussion with the patient, provided patient education, and recommended follow-up with primary care provider when appropriate. If patient noted with a risk of falling, they received education on strength, gait, and balance training to prevent future risk of falling. Portions of this note may have been carried over from the previous visit and updated as appropriate. Please note this office utilizes paper charting in addition to the electronic medical record. A list of current medications, vitals, and PMH is available there as the clinical staff outside of myself do not have access to [employer] charting during the clinic day operations. As part of providing quality comprehensive care the current medications, vitals, and PMH were reviewed in the paper chart. Assessment and Plan Assessment and Plan (1) Bilateral primary osteoarthritis of knee: (2) Bilateral knee pain: (3) Chronic prescription benzodiazepine use: (4) PTSD (post-traumatic stress disorder): (5) Failed back syndrome: (6) Chronic use of opiate drug for therapeutic purpose: Assessment and Plan: I feel these medications are improving the patient's quality of life and allow them to tolerate activities of daily living as well as participate in recreational activity.? The patient does not report intolerable side effects. The patient is NOT opioid naive and non-pharmacologic and non-opioid treatment has failed to significantly relieve the patient's pain and improve functionality. The patient has a diagnosis that is related to a somatic or visceral pain etiology. ? ?? I reviewed with the patient the potential risks and side effects with the use of? opioid medications including but not limited to respiratory depression,? sedation, and even . Within the last 12 months I have verified the patient has access to naloxone should? these effects occur. The patient was advised to let? their family know they had Naloxone in case they would need to administer? the medication. I advised the patient to avoid the use of any other? sedation substances including alcohol, THC, and benzodiazepines while? taking opioid medications due to the risk of compounding side effects and? detrimental outcomes. within the last 12 months I have reviewed the SALES DEPARTMENT CLERK, pain treatment agreement and urine drug screen.? ?? A drug screen was completed within the last year, and no aberrancies were noted regarding their use of controlled substances. The patient understands they are subject to the terms and conditions of the pain contract that they have signed. ? ?? I have checked an OARRS report on this patient today and there are no aberrancies noted in the prescribing history.? (7) Lumbar spondylosis: (8) Thoracic spondylosis: (9) Cervical stenosis of spinal canal: Plan 54 year old male with chronic pain unresponsive to > 6 weeks of PT/HEP, heat, ice, tylenol, nsaids now endorsing worsening bilateral knee pain. previously following with ortho for knee injections, was not interested in joint replacement surgery. update bilateral knee xray, proceed with bilateral knee injection in office with Dr Conklin. continue current medications, risks vs benefits reviewed. advised to f/u with scs rep, will arrange for consultation to assess settings. f/u after knee injection
== END 2025-04-02 11:22 | disposition home or self-care (01) ==
PROVIDERS: PCP Nurse Practitioner Family; Visit Provider Nurse Practitioner
DX: M17.0 Bilateral primary osteoarthritis of knee (principal); M25.561 Pain in right knee; M25.562 Pain in left knee; Z79.891 Long term (current) use of opiate analgesic; F43.10 Post-traumatic stress disorder, unspecified; M96.1 Postlaminectomy syndrome, not elsewhere classified; M47.816 Spondylosis without myelopathy or radiculopathy, lumbar region; M47.814 Spondylosis without myelopathy or radiculopathy, thoracic region; M48.02 Spinal stenosis, cervical region
CPT/HCPCS: G0463

== ENCOUNTER 2025-04-20 14:19 | Outpatient (OUT) | payer MEDICARE, MEDICAID, SELFPAY ==
--- OUTSIDE RECORDS SUMMARY | 2017-08-02 20:00 | XMS_ITS | Continuity of Care Document ---
Author Organization [employer] [facility] Address [address] [place] [address] Phone Care Team Providers Care Three Knife Trimmer Name Role Phone Unavailable Unavailable Unavailable Allergies, [...] Copied on Encounter OFFICE/OUTPAT IENT VISIT, EST [employer] [facility], [address] [place] [address], [id number], [place] tel:[phone] [facility] OP No Information 3201 7 No Information [facility] [employer] [facility], [address] [place] [address], [id number], [place] tel:[phone] [place] [address] OP No Information 7 No Information OFFICE/OUTPAT IENT VISIT, [employer], [address], [place], [id number], [place] tel:[phone] [place] [address] OP No Information 7 No [employer], [address], [place], [id number], [place] tel:[phone] [place] [address] OP No Information 7 No [employer], [address], [place], [id number], [place] tel:[phone] [place] [address] OP No Information 7 No Information OFFICE/OUTPAT IENT VISIT, [employer] [facility], [address], [place], [id number], [place] tel:[phone] [place] [address] OP No Information 7 No Information OFFICE/OUTPAT IENT VISIT, [employer], [address], [place], [id number], [place] tel:[phone] [place] [address] OP No Information 6 No Information [employer], [address], [place], [id number], [place] tel:[phone] [place] [address] OP No Information 6 No Information [employer], [address], [place], [id number], [place] tel:[phone] [place] [address] OP No Information 6 No Information [employer], [address], [place], [id number], [place] tel:[phone] [place] [address] OP No Information 6 No Information [employer], [address], [place], [id number], [place] tel:[phone] [place] [address] OP No Information 0- 6 No Information [employer], [address], [place], [id number], [place] tel:[phone] [place] [address] OP No Information 6 No Information OFFICE/OUTPAT IENT VISIT, [employer], [address], [place], [id number], [place] tel:[phone] [place] [address] OP No Information 6 No Information [employer], [address], [place], [id number], [place] tel:[phone] [place] [address] OP No Information 6 No [employer], [address], [place], [id number], [place] tel:[phone] [place] [address] OP No Information 6 No [employer], [address], [place], [id number], [place] tel:[phone] [place] [address] OP No Information 6 No Information OFFICE/OUTPAT IENT VISIT, [employer], [address], [place], [id number], [place] tel:[phone] [place] [address] OP No Information 6 No Information OFFICE/OUTPAT IENT VISIT, [employer], [address], [place], [id number], [place] tel:[phone] [place] [address] OP No Information 6 No Information [employer], [address], [place], [id number], [place] tel:[phone] [place] [address] OP No Information 6 No Information OFFICE/OUTPAT IENT VISIT, [employer], [address], [place], [id number], [place] tel:[phone] [place] [address] OP No Information 0 5 No Information OFFICE/OUTPAT IENT VISIT, [facility], [address] [facility] [address], [place], [place], [id number], [place] tel:[phone] [facility] OP No Information No Information OFFICE/OUTPAT IENT VISIT, [facility], [address], [place], [place], [id number], [place] tel:[phone] [facility] c/o fever achey (chief complaint) Diverticulitis Devin Yeh. [address], [place], [id number], [place]. tel:[phone] Referring Provider: Rao Frances, [address] [place], [address] . tel:[phone] Family History Family Member Type Diagnosis Age At Onset No Information Payers Payer name Insurance type Covered constitution party ID Authoriza tion(s) Medicare MB [id number] Social History Type Description Quantity Date Captured [...]
--- OUTSIDE RECORDS SUMMARY | 2024-04-29 05:45 | XMS_ITS ---
Author Organization [facility] Address [address] [place] [address] Care Team Providers Care Boat Dispatcher Name Role Phone Meg Lynn Primary Care Provider Bijan Herrera [facility] [phone] Allergies Allergen (clinical drug ingredient) Drug/Non Drug Allergy documented on EMR Reaction Allergy Type Onset Date Status Zofran Unknown Drug Allergy Active codeine codeine Unknown Drug Allergy Active REASON FOR VISIT LEFT INDEX FINGER - FILMS AT [facility] Medications Medication SIG (Take, Route, Frequency, Duration) [...] Problem Status W/U Status Risk Notes Problem [id number] Closed nondisplaced fracture of distal phalanx of left index finger, initial encounter (S62.661A) Active confirmed Vital Signs Height 5 ft 10 in in 04/29/2024 Weight 212 lbs 04/29/2024 BMI 30.42 04/29/2024 Encounters Encounter Location Date Provider Diagnosis [facility] [address] [place] [address] 04/29/2024 Bijan Lal Closed nondisplaced fracture of [...] ALIN LIGHT WDOB:0 1970 (54 yo M)Acc No.[id number]:04/29/2024 Patient: Leroy ALIN JARAMILLO W Provider: Scar Lal MD :1970 A ge:53 Y S ex:Male Date:04/29/2024 Address:[address] [place], [place] [phone] Pcp:Meg Lynn Subjective: * Chief Complaints: * 1 . LEFT INDEX FINGER - FILMS AT [facility]. * HPI: H PI: patient comes in [...] Electronic signature of Steve Lal MD on 04/20/2025 at 02:22 PM EDT Sign off status: Pending * Provider: Scar Lal MD Date: 0 04/29/2024 Generated for Joaquin quiles/Aria/Nildaitting on: 0 04/20/2025 02:22 PM EDT History and Physical Notes * HPI [...]
--- OUTSIDE RECORDS SUMMARY | 2024-06-10 05:45 | XMS_ITS ---
Author Organization [facility] Address [address] [place] [address] Care Team Providers Care Fuel Agent Name Role Phone Meg Lynn Primary Care Provider Bijan Herrera [phone] REASON FOR VISIT RC LEFT INDEX FINGER FX 7/5 Encounters Encounter Location Date Provider Diagnosis [facility] [facility] [address] [address] 06/10/2024 Bijan Lal Plan Of Treatment No Information Progress Notes * ALIN LIGHT WDOB:0 1970 (54 yo M)Acc No.[id number]:06/10/2024 Patient: Leory LEDBETTERALIN [place] Nick Provider: Scar Lal MD :1970 A ge:53 Y S ex:Male Date:06/10/2024 Address:[address] [place], [place] [phone] Pcp:Meg Lynn Subjective: * Chief Complaints: * 1 . RC LEFT INDEX FINGER FX 7/5. * Medical History: Objective: * Vitals: Assessment: Plan: * Treatment: Forms: * Images: * Electronic signature of Steve Lal MD on 04/20/2025 at 02:23 PM EDT Sign off status: Pending * Provider: Scar Lal MD Date: 0 06/10/2024 Generated for Joaquin quiles/Aria/eTransmitting on: 0 04/20/2025 02:23 PM EDT
--- OUTSIDE RECORDS SUMMARY | 2025-04-20 14:23 | XMS_ITS | Encounter Summary ---
Author Organization [facility] Address [address] [place] [address] Care Team Providers Care Molder Setter Name Role Phone Wesly Davies MD Unavailable [phone] Wesly Davies MD Unavailable [phone] Meg Lynn APRN.[facility] Primary Care Provider Source Comments In the event this information is protected by the Federal Confidentiality of Alcohol and Drug AbusePatient Records regulations: The Federal rules restrict any use of the information to criminally investigate or prosecute any alcohol or drug abuse patient.[facility] Encounter Details Date Type Department Care Team (Late st Contact Info) Description 07/25/2024 Patient Msg Gastroenterology [address] [address] Provider, [facility] Pre-Procedure Instructions for 07/28/24 EGD & EUS Social History Tobacco Use Types Packs/Day Years Used Date Smoking Tobacco: Never Assessed Area Deprivation Index Answer Date Wilfred rded National Score (1-100), lower number is lower ri sk 84 07/17/2024 State Score (1-10), lower number is lower risk 8 07/17/2024 Data from: https://www.neighborhoodatlas.medicine.[facility].edu/. Last address used for calculation [address] [...] Department Care Team (Latest Contact Info) Description 07/07/2025 7:40 AM EDT [facility] Endocrinology [address] [place] [address] Kathy Bravo MD [address] [place], [place] [id number] Jul 07 740 virtual documented as of this encounter Visit Diagnoses Not on filedocumented in this encounter Care Teams Molder Setter Relationship Specialty Start Date End Date Meg Lynn, NATE.TECHNOLOGY METHODOLOGY CONSULTANT [address] [place] [address] PCP - General Family Medicine 08/15/24 Wesly Davies MD [address] [place] [address] Referring Gastroenterology 07/16/24 Wesly Davies MD [address] [place], [place] [phone] Referring Gastroenterology 07/25/24 documented as of this encounter
--- OUTSIDE RECORDS SUMMARY | 2025-04-20 14:23 | XMS_ITS | Encounter Summary ---
Author Organization [facility] Address [address] [place] [address] Care Team Providers Care Social Work Case Manager Name Role Phone Wesly Davies MD Unavailable [phone] Wesly Davies MD Unavailable [phone] Meg Lynn APRN.[facility] Primary Care Provider Source Comments In the event this information is protected by the Federal Confidentiality of Alcohol and Drug AbusePatient Records regulations: The Federal rules restrict any use of the information to criminally investigate or prosecute any alcohol or drug abuse patient.[facility] Encounter Details Date Type Department Care Team (Late st Contact Info) Description 04/02/2025 Patient [facility] -[address] [place] [address] Jackelyn Jensen RPh At your next appointment, choose [facility]. Social History Tobacco Use Types Packs/Day Years Used Date Smoking Tobacco: Never Passive Smoke Exposure: Never Smokeless Tobacco: Never Alcohol Use Standard Drinks/Week Comments Not Currently 0 (1 standard drink = 0.6 oz pur e alcohol) [facility] Utilities Answer Date Recorded In [...] any time in the past 12 m [facility], were you homeless or living in a longterm (including now)? No 08/29/2024 Area Deprivation Index Answer Date Wilfred rded National Score (1-100), lower number is lower ri sk 84 01/23/2025 State Score (1-10), lower number is lower risk 8 01/23/2025 Data from: https://www.neighborhoodatlas.medicine.[facility].edu/. Last address used for calculation [address] [...] Contact Info) Description 07/07/2025 7:40 AM EDT [facility]ocrinology [address] [place] [address] Kathy Bravo MD [address] [place] [address] Sept 16 740 virtual documented as of this encounter Visit Diagnoses Not on filedocumented in this encounter Care Teams Social Work Case Manager Relationship Specialty Start Date End Date Meg Lynn APRN.CHIEF JUVENILE PROBATION OFFICER [address] [place] [address] PCP - General Family Medicine 08/15/24 Wesly Davies MD [address] [place] [address] Referring Gastroenterology 07/16/24 Wesly Davies MD [address] [place] [address] Referring Gastroenterology 07/25/24 documented as of this encounter
--- OUTSIDE RECORDS SUMMARY | 2025-04-20 14:23 | XMS_ITS | Encounter Summary ---
Author Organization [facility] Address [facility] [place] [address] Care Team Providers Care Waste Management Specialist Name Role Phone Wesly Davies MD Unavailable [phone] Wesly Davies MD Unavailable [phone] Meg Lynn APRN.[facility] Primary Care Provider Source Comments In the event this information is protected by the Federal Confidentiality of Alcohol and Drug AbusePatient Records regulations: The Federal rules restrict any use of the information to criminally investigate or prosecute any alcohol or drug abuse patient.[facility] Encounter Details Date Type Department Care Team (Late st Contact Info) Description 04/07/2025 Patient Msg Endocrinology [address] [place] [address] Kathy Bravo MD [address] [place] [address] Appointment Adjustment Social History Tobacco Use Types Packs/Day Years Used Date Smoking Tobacco: Never Passive Smoke Exposure: Never Smokeless Tobacco: Never Alcohol Use Standard Drinks/Week Comments Not Currently 0 (1 standard drink = 0.6 oz pur e alcohol) [facility] Utilities Answer Date Recorded In the past 12 months has th e electric, gas, oil, or water [employer] threatened to shut off services in your [...] time in the past 12 m [facility], were you homeless or living in a [place] health care facility (including now)? No 08/29/2024 Area Deprivation Index Answer Date Wilfred rded National Score (1-100), lower number is lower ri sk 84 01/23/2025 State Score (1-10), lower number is lower risk 8 01/23/2025 Data from: https://www.neighborhoodatlas.medicine.[facility].edu/. Last address used for calculation [...] 07/07/2025 7:40 AM EDT [facility] [address] [place], [place] [phone] Kathy Bravo MD [address] [place] [address] Sept 16 740 virtual documented as of this encounter Visit Diagnoses Not on filedocumented in this encounter Care Teams Waste Management Specialist Relationship Specialty Start Date End Date Meg Lynn APRN.ATTENDING RADIOLOGIST [address] [place] [address] PCP - General Family Medicine 08/15/24 Wesly Davies MD [address] [place], [place] [id number] Referring Gastroenterology 07/16/24 Wesly Davies MD [address], [place] [id number] Referring Gastroenterology 07/25/24 documented as of this encounter
--- OUTSIDE RECORDS SUMMARY | 2025-04-20 14:23 | XMS_ITS | Encounter Summary ---
Author Organization [facility] Address [id number] [address] [place] [address] Care Team Providers Care Finance Associate Name Role Phone Meg Lynn NATE-TIE PULLER Primary Care Provider Reason for Visit * Reason Onset Date Comments Discharge 11/05/2023 Encounter Details Date Type Department Care Team (Late st Contact Info) Description 11/05/2023 Telephone [facility] [address] [place] [phone] Va Benavides, shoelace tipping machine operator Social History Tobacco Use Types Packs/Day Years [...] on filedocumented in this encounter Care Teams Finance Associate Relationship Specialty Start Date End Date Meg Lynn, NATE-TIE PULLER [address] [place], [place] [phone] PCP - General Nurse Practitioner 07/16/23 documented as of this encounter
--- OUTSIDE RECORDS SUMMARY | 2025-04-20 14:23 | XMS_ITS | Encounter Summary ---
Author Organization [employer] Address [id number] [address] [place] [address] Care Team Providers Care Dashboard Developer Name Role Phone Meg Lynn Primary Care Provider Encounter Details Date Type Department Care Team (Late st Contact Info) Description 07/30/2023 Telephone [facility] [address] [place] [phone] Sara Spaulding, SANTOSH Social History Tobacco [...] on filedocumented in this encounter Care Teams Dashboard Developer Relationship Specialty Start Date End Date Meg Lynn APRN-CNP [address] [place] [address] PCP - General Nurse Practitioner 07/16/23 documented as of this encounter
--- OUTSIDE RECORDS SUMMARY | 2025-04-20 14:23 | XMS_ITS | Encounter Summary ---
Author Organization [facility] Address [address] [place] [address] Care Team Providers Care Video Game Engineer Name Role Phone Wesly Davies MD Unavailable [phone] Wesly Davies MD Unavailable [phone] Meg Lynn APRN.[facility] Primary Care Provider Source Comments In the event this information is protected by the Federal Confidentiality of Alcohol and Drug AbusePatient Records regulations: The Federal rules restrict any use of the information to criminally investigate or prosecute any alcohol or drug abuse patient.[facility] Encounter Details Date Type Department Care Team (Late st Contact Info) Description 08/24/2024 Get Medical Advice General Surgery [address] [place] [phone] [place] [address] [place] [phone] Nucala Infusion injection Social History Tobacco Use [...] risk 8 07/17/2024 Data from: https://www.neighborhoodatlas.medicine.[facility].edu/. Last address used for calculation [address] [...] Contact Info) Description 07/07/2025 7:40 AM EDT [facility] Endocrinology [address] [place] [address] Kathy Bravo MD [address] [place], [place] [id number] Sept 16 740 virtual documented as of this encounter Visit Diagnoses Not on filedocumented in this encounter Care Teams Video Game Engineer Relationship Specialty Start Date End Date Meg Lynn APRN.SPLINE ROLLING MACHINE JOB SETTER [address] [place] [address] PCP - General Family Medicine 08/15/24 Wesly Davies MD [address], [place] [id number] Referring Gastroenterology 07/16/24 Wesly Davies MD [address], [place] [id number] Referring Gastroenterology 07/25/24 documented as of this encounter
--- OUTSIDE RECORDS SUMMARY | 2025-04-20 14:23 | XMS_ITS | Encounter Summary ---
Author Organization [facility] Address [facility] [place] [address] Care Team Providers Care Pipeline Dispatcher Name Role Phone Wesly Davies MD Unavailable [phone] Wesly Davies MD Unavailable [phone] Meg Lynn APRN.[facility] Primary Care Provider Source Comments In the event this information is protected by the Federal Confidentiality of Alcohol and Drug AbusePatient Records regulations: The Federal rules restrict any use of the information to criminally investigate or prosecute any alcohol or drug abuse patient.[facility] Reason for Visit * Reason Comments Patient Question Pt calling because h e wants to know about the adjustment to the creon he supposed to have done per Ligia NÚÑEZ. Please give pt a call back Encounter Details Date Type Department Care Team (Late st Contact Info) Description 07/28/2024 Telephone [facility] [place] [address] [place] [address] [place], [place] [phone] Patient Question (Pt calling because he wants [...] is lower risk 8 07/17/2024 Data from: https://www.neighborhoodatlas.[facility]/. Last address used for calculation [address] [...] Contact Info) Description 07/07/2025 7:40 AM EDT [facility] Endocrinology [address] [place] [address] Kathy Bravo MD [address] [place], [place] [address] Jun 16 251 virtual documented as of this encounter Visit Diagnoses Not on filedocumented in this encounter Care Teams Pipeline Dispatcher Relationship Specialty Start Date End Date Meg Lynn APRN.SCHOOL SPEECH LANGUAGE PATHOLOGIST [address] [place] [address] PCP - General Family Medicine 08/15/24 Wesly Davies MD [address] [place] [address] Referring Gastroenterology 07/16/24 Wesly Davies MD [address] [place] [address] Referring Gastroenterology 07/25/24 documented as of this encounter
--- OUTSIDE RECORDS SUMMARY | 2025-04-20 14:23 | XMS_ITS | Encounter Summary ---
Author Organization [facility] Address [address] [place] [address] Care Team Providers Care Relief Pilot Name Role Phone Meg Lynn APRN, CNP Primary Care Provid er Reason for Visit * Reason Comments Medication Refill Encounter Details Date Type Department Care Team (Late st Contact Info) Description 10/06/2019 Refill [facility] [address] [place] [address] Lillian Figueroa MD [address] [place] [address] Medication Refill Social History Tobacco Use Types [...] Description 08/20/2025 11:00 AM EDT Office Visit [facility] UROLOGY Part of [address] [place] [phone] Parvez Chatterjee MD [address] [facility], [address] [place] [address] one year PSA documented as of this [...] documented as of this encounter Care Teams Relief Pilot Relationship Specialty Start Date End Date Meg Lynn, NATE - WARP SPLITTER [address] [place] [address] PCP - General Certified Nurse Practitioner 04/23/23 documented as of this encounter
--- OUTSIDE RECORDS SUMMARY | 2025-04-20 14:23 | XMS_ITS | Encounter Summary ---
Author Organization [facility] Address [address] [place] [address] Care Team Providers Care Director Of Market Analysis Name Role Phone Wesly Davies MD Unavailable Wesly Davies MD Unavailable [phone] Meg Lynn APRN.[facility] Primary Care Provider Source Comments In the event this information is protected by the Federal Confidentiality of Alcohol and Drug AbusePatient Records regulations: The Federal rules restrict any use of the information to criminally investigate or prosecute any alcohol or drug abuse patient.[facility] Reason for Visit * Reason Comments CT Report Uploaded imaging Pushed (Frederic orlando) Received Outside Medical Records [facility] records uploaded Encounter Details Date Type Department Care Team (Late st Contact Info) Description 07/18/2024 Telephone General Surgery [address] [place] [phone] [place] [address] [place] [id number] Report (Uploaded ); imaging (Pushed (Frederic Lewis)); Received Outside Medical Records ([facility] records uploaded ) Social History Tobacco Use Types Packs/Day Years Used Date Smoking Tobacco: Never Assessed Area Deprivation Index Answer Date Wilfred rded National Score (1-100), lower number is lower ri sk 84 07/17/2024 State Score (1-10), lower number is lower risk 8 07/17/2024 Data from: https://www.neighborhoodatlas.medicine.[facility]/. Last address used for [...] Frederic Lewis) * Telephone Encounter - Vickie Galindo - 07/18/2024 12:45 PM EDT Report uploaded ([place]) * Telephone Encounter - Vickie Galindo - 07/18/2024 11:21 AM EDT Report uploaded & imaging pushed (Frederic Lewis) documented in this encounter Plan of Treatment Upcoming Encounters Date Type Department Care Team (Latest Contact Info) Description 07/07/2025 7:40 AM EDT [facility] [address] [place] [address] Kathy Bravo MD [address] [place], [place] [id number] Jun 16 740 virtual documented as of this encounter Visit Diagnoses Not on filedocumented in this encounter Care Teams Director Of Market Analysis Relationship Specialty Start Date End Date Meg Lynn APRN.ELECTRONIC SCIENCE TEACHER [address] [place] [address] PCP - General Family Medicine 08/15/24 Wesly Davies MD [address] [facility] [address] [place], [place] [id number] Referring Gastroenterology 07/16/24 Wesly Davies MD [address] [facility] [address] [place], [place] [id number] Referring Gastroenterology 07/25/24 documented as of this encounter
--- OUTSIDE RECORDS SUMMARY | 2025-04-20 14:23 | XMS_ITS | Encounter Summary ---
Author Organization [facility] Address [address] [place] [address] Care Team Providers Care Track Repair Laborer Name Role Phone Wesly Davies MD Unavailable [phone] Wesly Davies MD Unavailable [phone] Meg Lynn APRN.[facility] Primary Care Provider Source Comments In the event this information is protected by the Federal Confidentiality of Alcohol and Drug AbusePatient Records regulations: The Federal rules restrict any use of the information to criminally investigate or prosecute any alcohol or drug abuse patient.[facility] Encounter Details Date Type Department Care Team (Late st Contact Info) Description 08/18/2024 Patient [facility] [place] [address] Jackelyn Jensen RPh At your next appointment, choose [facility]. Social History Tobacco Use Types [...] risk 8 07/17/2024 Data from: https://www.neighborhoodatlas.medicine.[facility]/. Last address used for calculation [address] [...] AM EDT [facility] Endocrinology [address] [place] [address] Kathy Bravo MD [address] [place] [address] Jun 16 740 virtual documented as of this encounter Visit Diagnoses Not on filedocumented in this encounter Care Teams Track Repair Laborer Relationship Specialty Start Date End Date Meg Lynn APRN.COMPRESSOR SERVICE TECHNICIAN [address] [place] [address] PCP - General Family Medicine 08/15/24 Wesly Davies MD [address] [facility] [place], [place] [phone] Referring Gastroenterology 07/16/24 Wesly Davies MD [address] [place], [place] [id number] Referring Gastroenterology 07/25/24 documented as of this encounter
--- OUTSIDE RECORDS SUMMARY | 2025-04-20 14:23 | XMS_ITS | Encounter Summary ---
Author Organization [facility] Address [id number] [address] [place] [address] Care Team Providers Care Focuser Name Role Phone Meg Lynn NATE-ROTOR PILOT Primary Care Provider Reason for Visit * Reason Onset Date Comments Missed appointment 03/19/2024 Encounter Details Date Type Department Care Team (Late st Contact Info) Description 03/19/2024 Telephone [facility] [address] [place] [phone] Va Benavides RN Missed appointment Social History [...] not, it is a send out to [facility]. Reminded patient that his missed his appointment and until we receive those results, we are unable to RX. He asked if he should contact his PCP, because he is worried and in a lot of pain. Advised that he can, I will attempt to call the [place] lab for his results. Otherwise, we will need to wait for his results. documented in this encounter Plan of Treatment Not on file documented as of this encounter Results * Benzodiazepine (03/26/2024 12:10 PM EDT) Benzodiazepine Screen, Urine Negative Negative^ Negative 03/27/2024 3:41 AM EDT [facility] Comment: Benzodiazepines screening cut off value = 200 ng/mL This report is intended for use in clinical monitoring or management of patients. Urine / Unknown 03/26/2024 1 2:10 PM EDT 03/26/2024 3:11 PM EDT us Slime Romano CARDIOLOGY COORDINATOR-ROTOR PILOT URINE ORDERABLES Final Result Performing Organization Address City/State/[facility] Co de Phone Number [facility] [address] [facility] [facility], [address] [place] [address] * Unlisted Lab Test UQNTPP (03/26/2024 12:10 PM EDT) Unlisted lab test Sent to reference lab 03/27/2024 4:04 PM EDT [employer] MISCELLANEOUS 03/26/2024 12: 10 PM EDT 03/26/2024 3:12 PM EDT Slime Romano CARDIOLOGY COORDINATOR-ROTOR PILOT LAB BLOOD ORDERABLES Fi nal Result [facility] documented in this encounter Visit Diagnoses Diagnosis Encounter for long-term use of opiate analgesic- Primary Encounter for long-term (current) use of other medications documented in this encounter Care Teams Focuser Relationship Specialty Start Date End Date Meg Lynn, NATE-ROTOR PILOT [address] [place] [phone] PCP - General Nurse Practitioner 07/16/23 documented as of this encounter
--- OUTSIDE RECORDS SUMMARY | 2025-04-20 14:23 | XMS_ITS | Encounter Summary ---
Author Organization [facility] Address [address] [place] [address] Care Team Providers Care Distribution Estimator Name Role Phone Wesly Davies MD Unavailable [phone] Wesly Davies MD Unavailable [phone] Meg Lynn APRN.[facility] Primary Care Provider Source Comments In the event this information is protected by the Federal Confidentiality of Alcohol and Drug AbusePatient Records regulations: The Federal rules restrict any use of the information to criminally investigate or prosecute any alcohol or drug abuse patient.[facility] Reason for Visit * Reason Comments report Radiology reports up loaded ([facility]) imaging Pushed Encounter Details Date Type Department Care Team (Late st Contact Info) Description 07/21/2024 Telephone General Surgery [address] [place] [address] [phone] [place] [address] [place], [place] [phone] report (Radiology reports uploaded ([facility])); imaging (Pushed ) Social History Tobacco Use Types Packs/Day Years Used Date Smoking Tobacco: Never Assessed Area Deprivation Index Answer Date Wilfred rded National Score (1-100), lower number is lower ri sk 84 07/17/2024 State Score (1-10), lower number is lower risk 8 07/17/2024 Data from: https://www.neighborhoodatlas.medicine.[facility].edu/. Last address used for calculation [address] [...] 07/21/2024 4:54 PM EDT Radiology reports uploaded ([facility]) Imaging pushed documented in this encounter Plan of Treatment Upcoming Encounters Date Type Department Care Team (Latest Contact Info) Description 07/07/2025 7:40 AM EDT [facility] Endocrinology [address] [place] [address] Kathy Bravo MD [address] [place], [place] [phone] Sept 16 740 virtual documented as of this encounter Visit Diagnoses Not on filedocumented in this encounter Care Teams Distribution Estimator Relationship Specialty Start Date End Date Meg Lynn APRN.[facility] [address] [place] [address] PCP - General Family Medicine 08/15/24 Wesly Davies MD [address] [place] [address] Referring Gastroenterology 07/16/24 Wesly Davies MD [address] [place] [address] Referring Gastroenterology 07/25/24 documented as of this encounter
--- OUTSIDE RECORDS SUMMARY | 2025-04-20 14:23 | XMS_ITS | Patient Health Record ---
Author Organization [facility] Address [address] [place] [address] Care Team Providers Care Hot Cell Technician Name Role Phone Meg Lynn Primary Care Provider Bijan Herrera [phone] Allergies Allergen (clinical drug ingredient) Drug/Non Drug Allergy documented on EMR Reaction Allergy Type Onset Date Status Zofran Unknown Drug Allergy Active codeine codeine Unknown Drug Allergy Active Results Component Value Reference Range Notes Rib series, right - [id number] Reviewed date:04/02/2025 12:56:22 PM Interpretation: Performing Lab: Notes/Report: Reason For Referral No Information Medications Medication [...] Problem Status W/U Status Risk Notes Problem 108945973 Low back pain (M54.5) Active confirmed Problem Arthralgia of the pelvic region and thigh (366247211) Right hip pain (M25.551) Active confirmed Problem 142469049 Radiculopathy of lumbar region (M54.16) Active confirmed Problem Right knee pain (257835171993210) Right knee pain (M25.561) Active confirmed Problem 069746432508984 Trochanteric bursitis of right hip (M70.61) Active confirmed Problem 53395700285996326 Contusion of l eft hand, initial encounter (S60.222A) Active confirmed Problem Presence of othe r specified devices (Z97.8) Active confirmed Problem 114667356 Strain of lumbar region, initial encounter (S39.012A) Active confirmed Problem Lumbar radicular pain (0572917640) Lumbar radicular pain (M54.16) Active confirmed Problem 042797850 Closed nondisplaced fracture of distal phalanx of left index finger, initial encounter (S62.661A) Active confirmed Problem 10014813 Quadriceps tendonitis (M76.899) Active confirmed Problem Osteoarthritis of right knee joint (disorder) (681256586641501) Localized osteoarthritis of right knee (M17.11) Active confirmed Problem Low back pain (344850646) Low back pain associated with a spinal disorder other than radiculopathy or spinal stenosis (M54.5) Active confirmed Problem 11965120415028 Contusion of rib on right side, initial encounter (S20.211A) Active confirmed Vital Signs Height 5 ft 10 in in 04/29/2024 Weight 212 lbs 04/29/2024 BMI 30.42 04/29/2024 Encounters Encounter Location Date Provider Diagnosis [facility] Office [address] [facility] [place] [address] 04/29/2024 Bijan Villedans Closed nondisplaced fracture of distal phalanx of left index finger, initial encounter S62.661A [facility] Office [address] [place] [phone] 12/03/2024 Bijansantiago Villedans Contusion of left hand, [...] 2 left hand contusion Plan Of Treatment No Information Insurance Providers Payer Name Payer Address Payer Phone Subscriber Number Group Number Insured Name Patient Relationship to Insured Coverage Start Date Coverage End Date MEDICARE UHC DUAL COMPLETE [address] [place] [address] [id number] ALIN LIGHT Self - patient is the insured [facility] of Medicaid [address] [place] [address] [id number] ALIN LIGHT Self - patient is the [...]
--- OUTSIDE RECORDS SUMMARY | 2025-04-20 14:23 | XMS_ITS | Referral Summary ---
Author Organization [facility] Address [address] [place] [address] Care Team Providers Care Director Athletic Name Role Phone Meg Lynn MD Primary Care Provider Allergies Active Allergy Reactions Criticality Noted Date Comments Codeine Hives,Nausea And Vomiting,Unknown High Ondansetron Hives,Nausea And Vomiting Medium 1 Medications albuterol sulfate (ProAir RespiClick) 90 mcg/actuation aerosol powdr breath activated 2 puffs, Inhale, q6hr, PRN, # 1 EA, 0 Refill(s), Pharmacy: [address] 03/25/2024 Active amitriptyline (Elavil) 50 mg [...] by mouth at bedtime. 10/31/2021 Active pancrelipase, Lrt-Hmle-Kgbq, (Creon) 36,000-114,000- 180,000 unit capsule,delayed release(DR/EC) capsule Creon 29303 units oral delayed release capsule: TAKE 2 [...] 01/17/2018 Active ergocalciferol (Vitamin D-2) 1.25 MG (35182 Units) capsule Take 50,000 Units by mouth [...] Not on file Insurance [employer] MEDICARE Care Teams Director Athletic Relationship Specialty Start Date End Date Meg Lynn MD [address] [place] [address] PCP - General 06/26/24
--- OUTSIDE RECORDS SUMMARY | 2025-04-20 14:23 | XMS_ITS | Encounter Summary ---
Author Organization [facility] Address [address] [place] [address] Care Team Providers Care Precinct I Police Sergeant Name Role Phone Wesly Davies MD Unavailable [phone] Wesly Davies MD Unavailable [phone] Meg Lynn APRN.[facility] Primary Care Provider Source Comments In the event this information is protected by the Federal Confidentiality of Alcohol and Drug AbusePatient Records regulations: The Federal rules restrict any use of the information to criminally investigate or prosecute any alcohol or drug abuse patient.[facility] Encounter Details Date Type Department Care Team (Late st Contact Info) Description 08/24/2024 Get Medical Advice General Surgery [address] [place] [phone] [place] [address] [place] [phone] Vitamins and vaccination Social History Tobacco Use [...] is lower risk 8 07/17/2024 Data from: https://www.neighborhoodatlas.medicine.[facility].edu/. Last address used for calculation [address] [...] Contact Info) Description 07/07/2025 7:40 AM EDT [facility] Endocrinology [address] [place] [address] Kathy Bravo MD [address] [place], [place] [phone] Sept 16 740 virtual documented as of this encounter Visit Diagnoses Not on filedocumented in this encounter Care Teams Precinct I Police Sergeant Relationship Specialty Start Date End Date Meg Lynn APRN.[employer] [address] [place] [address] PCP - General Family Medicine 08/15/24 Wesly Davies MD [address] [place], [place] [phone] Referring Gastroenterology 07/16/24 Wesly Davies MD [address] [place], [place] [address] Referring Gastroenterology 07/25/24 documented as of this encounter
--- OUTSIDE RECORDS SUMMARY | 2025-04-20 14:24 | XMS_ITS | Data Portability ---
Author Organization [facility] Address [address] [place] [address] Care Team Providers Care Test Data Developer Name Role Phone BAMBI RODRÍGUEZ Primary Care Provider [phone] Assessment No assessment recorded. Plan of Treatment Reminders Order Date Submit Date Provider Last Modified By Organization Details Last Modified Time Details Appointments None recorded. Lab urinalysis, dipstick 2022 023 [email or web address] [facility], [address], [place], [address], 3 07:52:04 urinalysis, dipstick 2021 022 [email or web address] [facility], [address], [place], [address], 2 10:06:31 PSA, serum or plasma 2021 022 [facility], [address], [place], [address], 2 15:06:15 Referral None recorded. Procedures measurement of post-voidin g residual urine and/or bladder capacity (PROC) 2022 023 [place] [facility], [address], [place], [address], 10:38:06 measurement of post-voidin g residual urine and/or bladder capacity (PROC) 2022 023 [place] [facility], [address], [place], [address], 14:55:42 cystoscopy (PROC) 2021 [email or web address] [facility], [address], [place], [address], 08:16:47 electromyog eric studies (EMG) of anal or urethral sphincter, other than needle (PROC) 2021 [email or web address] [facility], [address], [place], [address], 10:06:44 complex uroflowmetr y (PROC) 2021 [email or web address] [facility], [address], [place], [address], 13:20:56 measurement of post-voidin g residual urine and/or bladder capacity (PROC) 2021 VIRI [facility], [address], [place], [address], 08:28:32 complex uroflowmetr y (PROC) 2021 [facility], [address], [place], [place], [address], 08:38:45 cystoscopy (PROC) 2021 [email or web address] [facility], [address], [place], [place], [address], 08:38:45 Surgeries cystourethr oscopy, with insertion of permanent adjustable transprosta tic implant; single implant (SURG) 2021 amatics Not available 17:02:58 Imaging None recorded. Medication Orders Bactrim DS 800 mg-160 mg tablet 2021 [email or web address] [id number], [address], [place], [id number], 14:55:17 Patient TargetsNo targets recorded. Patient Instructions Encounter Date Encounter Id Patient Instructions Last Modified By Organization Details Last Modified Time 12/13/2022 [id number] 09/02/22 PSA 0.96 Not avail able 12/13/2022 15:09:18 Reason for Referral None Reported. Results Created Date Observation Date Name Description Value Unit Range Abnormal Flag Note LastModifiedBy Organization Detail LastModifiedTime 09/05/2009/05/2022 AG PROST ATE SPECI FIC note SEE NOTE Order ing Provi gera: Derek Iglesias son Not Available [facility] (Lab) [address] [place], [address], 09/07/2022 15:06:15 09/05/20 22 09/05/2022 AG PROST ATE SPECI FIC Ag prostate specific 0.96 NG/mL 0.00-4 .00 normal Testi ng perfo rmed using chemi lumin escen ce immun oassa y. Not Available [facility] (Lab) [address] [place], [address], 09/07/2022 15:06:15 09/05/20 22 09/05/2022 AG PROST ATE SPECI FIC performing lab SEE NOTE [facility] [address] [place] [address] [facility] (Lab) [address] [place], [address], 09/07/2022 15:06:15 10/03/20 22 10/03/2022 urina lysis , dipst ick Leukocytes Negati ve Not Available [facility] [address], [place], [address], 10/03/2022 16:39:42 10/03/20 22 10/03/2022 urina lysis , dipst ick Nitrite negati ve Not Available [facility] [address], [place], [address], 10/03/2022 16:39:42 10/03/20 22 10/03/2022 urina lysis , dipst ick Urobilinogen .2 Not Available [facility] [address], [place], [address], 10/03/2022 16:39:42 10/03/20 22 10/03/2022 urina lysis , dipst ick Protein Negati ve Not Available [facility] [address], [place], [address], 10/03/2022 16:39:42 10/03/20 22 10/03/2022 urina lysis , dipst ick pH 7.0 Not Available [facility] [address], [place], [address], 10/03/2022 16:39:42 10/03/20 22 10/03/2022 urina lysis , dipst ick Blood Negati ve Not Available [facility] [address], [place], [address], 10/03/2022 16:39:42 10/03/20 22 10/03/2022 urina lysis , dipst ick Specific [place] 1.020 Not Available [facility] [address], [place], [address], 10/03/2022 16:39:42 10/03/20 22 10/03/2022 urina lysis , dipst ick Ketone Negati ve Not Available [facility] [address], [place], [address], 10/03/2022 16:39:42 10/03/20 22 10/03/2022 urina lysis , dipst ick Bilirubin Negati ve Not Available [facility] [address], [place], [address], 10/03/2022 16:39:42 10/03/20 22 10/03/2022 urina lysis , dipst ick Glucose Negati ve Not Available [facility] [address], [place], [address], 10/03/2022 16:39:42 10/03/20 22 10/03/2022 urina lysis , dipst ick Appearance Clear Not Available [facility] [address], [place], [address], 10/03/2022 16:39:42 10/30/19 23 10/30/2022 CBC note SEE NOTE Order ing Provi gera: Derek nena Jesus Iglesias son Not Available [facility] (Lab) [address], [place], [address], 10/30/2022 16:45:27 10/30/19 23 10/30/2022 CBC white blood cell 8.4 K/mm3 6.3-9. [address] [facility] (Lab) [address], [place], [address], 10/30/2022 16:45:27 10/30/19 23 10/30/2022 CBC red blood cell 4.78 mil/m m 4.50-6 .[address] [facility] (Lab) [address], [place], [address], 10/30/2022 16:45:27 10/30/19 23 10/30/2022 CBC hemoglobin 13.7 g/dL 14.1-1 6.[address] [facility] (Lab) [address], [place], [place], [address], 10/30/2022 16:45:27 10/30/19 23 10/30/2022 CBC hematocrit 42.2 % 40.6-5 0.[address] [facility] (Lab) [address], [place], [place], [address], 10/30/2022 16:45:27 10/30/19 23 10/30/2022 CBC mean cell volume 88 um3 80-100 normal Not Available [facility] (Lab) [address], [place], [place], [address], 10/30/2022 16:45:27 10/30/19 23 10/30/2022 CBC mean cell HGB 29 pg 27.0-3 1.[address] [facility] (Lab) [address], [place], [place], [address], 10/30/2022 16:45:27 10/30/19 23 10/30/2022 CBC mean cell HGB concentratio n 33 % 32.0-3 6.[address] [facility] (Lab) [address], [place], [address], 10/30/2022 16:45:27 10/30/19 23 10/30/2022 CBC red cell distribution width 13.3 % 11.5-1 4.[address] [facility] (Lab) [address], [place], [address], 10/30/2022 16:45:27 10/30/19 23 10/30/2022 CBC platelet count 268 K/mm3 140-44 [address] [facility] (Lab) [address], [place], [address], 10/30/2022 16:45:27 10/30/19 23 10/30/2022 CBC performing lab SEE NOTE [facility] [address] [place] [address] [facility] (Lab) [address] [place], [address], 10/30/2022 16:45:27 10/30/19 23 10/30/2022 BASIC METAB OLIC PANEL note SEE NOTE Order ing Provi gera: Derek Iglesias son Not Available [facility] (Lab) [address] [place], [address], 10/30/2022 17:08:15 10/30/19 23 10/30/2022 BASIC METAB OLIC PANEL sodium 139 mmol/ L 137-14 [address] [facility] (Lab) [address] [place], [address], 10/30/2022 17:08:15 10/30/19 23 10/30/2022 BASIC METAB OLIC PANEL potassium 4.0 mmol/ L 3.5-5. [address] [facility] (Lab) [address] [place], [address], 10/30/2022 17:08:15 10/30/19 23 10/30/2022 BASIC METAB OLIC PANEL chloride 105 mmol/ L 98-[address] [facility] (Lab) [address] [place], [address], 10/30/2022 17:08:15 10/30/19 23 10/30/2022 BASIC METAB OLIC PANEL carbon dioxide 27 mmol/ L 21-[address] [facility] (Lab) [address] [place], [address], 10/30/2022 17:08:15 10/30/19 23 10/30/2022 BASIC METAB OLIC PANEL anion gap 11 mmol/ L 0-[address] [facility] (Lab) [address] [place], [address], 10/30/2022 17:08:15 10/30/19 23 10/30/2022 BASIC METAB OLIC PANEL glucose 109 mg/dL 70-[address] [facility] (Lab) [address], [place], [address], 10/30/2022 17:08:15 10/30/19 23 10/30/2022 BASIC METAB OLIC PANEL blood urea nitrogen 13 mg/dL 7-18 normal Not Available [facility] (Lab) [address], [place], [address], 10/30/2022 17:08:15 10/30/19 23 10/30/2022 BASIC METAB OLIC PANEL creatinine 1.2 mg/dL 0.6-1. [address] [facility] (Lab) [address] [place], [address], 10/30/2022 17:08:15 10/30/19 23 10/30/2022 BASIC METAB OLIC PANEL calcium 9.9 mg/dL 8.5-10 .[address] [facility] (Lab) [address] [place], [address], 10/30/2022 17:08:15 10/30/19 23 10/30/2022 BASIC METAB OLIC PANEL GFR >60 THIS IS AN ESTIM ATED GFR MERLENE DOTY ATION RATE ESTIM ATED BY MARQUISE Ring MDRO STUDY EQUAT ION Not Available [facility] (Lab) [address] [place], [address], 10/30/2022 17:08:15 10/30/19 23 10/30/2022 BASIC METAB OLIC PANEL performing lab SEE NOTE [facility] [address] [place] [address] [facility] (Lab) [address] [place], [address], 10/30/2022 17:08:15 10/30/19 23 10/30/2022 URINA LYSIS COMPL ETE note See Note Order ing Provi gera: Derek Iglesias son Not Available [facility] (Lab) [address], [place], [address], 10/30/2022 17:19:38 10/30/19 23 10/30/2022 URINA LYSIS COMPL ETE UA color STRAW yellow Not Available [facility] (Lab) [address], [place], [address], 10/30/2022 17:19:38 10/30/19 23 10/30/2022 URINA LYSIS COMPL ETE UA appearance CLEAR clear Not Available [facility] (Lab) [address], [place], [address], 10/30/2022 17:19:38 10/30/19 23 10/30/2022 URINA LYSIS COMPL ETE UA glucose dipstick NEGATI VE negati ve Not Available [facility] (Lab) [address], [place], [address], 10/30/2022 17:19:38 10/30/19 23 10/30/2022 URINA LYSIS COMPL ETE UA bilirubin dipstick NEGATI VE negati ve Not Available [facility] (Lab) [address], [place], [address], 10/30/2022 17:19:38 10/30/19 23 10/30/2022 URINA LYSIS COMPL ETE UA ketone dipstick NEGATI VE negati ve Not Available [facility] (Lab) [address], [place], [address], 10/30/2022 17:19:38 10/30/19 23 10/30/2022 URINA LYSIS COMPL ETE UA specific gravity 1.006 Not Available [facility] (Lab) [address], [place], [address], 10/30/2022 17:19:38 10/30/19 23 10/30/2022 URINA LYSIS COMPL ETE UA blood dipstick NEG negati ve Not Available [facility] (Lab) [address], [place], [address], 10/30/2022 17:19:38 10/30/19 23 10/30/2022 URINA LYSIS COMPL ETE UA pH dipstick 8.0 5.0-8. [address] [facility] (Lab) [address], [place], [address], 10/30/2022 17:19:38 10/30/19 23 10/30/2022 URINA LYSIS COMPL ETE UA protein dipstick Negati ve negati ve Not Available [facility] (Lab) [address] [place], [address], 10/30/2022 17:19:38 10/30/19 23 10/30/2022 URINA LYSIS COMPL ETE UA urobilinogen dipstick Negati ve eu/dL Not Available [facility] (Lab) [address] [place], [address], 10/30/2022 17:19:38 10/30/19 23 10/30/2022 URINA LYSIS COMPL ETE UA nitrite dipstick Negati ve negati ve Not Available [facility] (Lab) [address] [place], [address], 10/30/2022 17:19:38 10/30/19 23 10/30/2022 URINA LYSIS COMPL ETE UA leukocyte esterase dipstick Negati ve negati ve Not Available [facility] (Lab) [address] [place], [address], 10/30/2022 17:19:38 10/30/19 23 10/30/2022 URINA LYSIS COMPL ETE urine microscopic required? NO UA MICRO SCOPI C NOT INDIC ATED. Not Available [facility] (Lab) [address] [place], [address], 10/30/2022 17:19:38 10/30/19 23 10/30/2022 URINA LYSIS COMPL ETE performing lab see note [facility] [address] [place] [address] [facility] (Lab) [address], [place], [address], 10/30/2022 17:19:38 02/22/20 23 02/21/2023 urina lysis , dipst ick Leukocytes Negati ve Not Available [facility] [address] [facility] [address], [place], [address], 02/21/2023 15:12:25 02/22/20 23 02/21/2023 urina lysis , dipst ick Nitrite negati ve Not Available [facility] [address] [facility] [address], [place], [address], 02/21/2023 15:12:25 02/22/20 23 02/21/2023 urina lysis , dipst ick Urobilinogen .2 Not Available [facility] [address] [facility] [address], [place], [address], 02/21/2023 15:12:25 02/22/20 23 02/21/2023 urina lysis , dipst ick Protein Negati ve Not Available [facility] [address] [facility] [address], [place], [address], 02/21/2023 15:12:25 02/22/20 23 02/21/2023 urina lysis , dipst ick pH 7.0 Not Available [facility] [address] [facility] [address], [place], [address], 02/21/2023 15:12:25 02/22/20 23 02/21/2023 urina lysis , dipst ick Blood Negati ve Not Available [facility] [address], [place], [address], 02/21/2023 15:12:25 02/22/20 23 02/21/2023 urina lysis , dipst ick Specific [place] 1.010 Not Available [facility] [address], [place], [address], 02/21/2023 15:12:25 02/22/20 23 02/21/2023 urina lysis , dipst ick Ketone Negati ve Not Available [facility] [address], [place], [address], 02/21/2023 15:12:25 02/22/20 23 02/21/2023 urina lysis , dipst ick Bilirubin Negati ve Not Available [facility] [address], [place], [address], 02/21/2023 15:12:25 Result Notes None recorded. Problems Name Problem SNOMED Code Status Onset Date Resolution Date Notes Provider Name and Address Organization Details Recorded Time Prostatitis 5186642 Active 2021 Zayra phillips, [place] - [facility] 2 14:24:03 Diabetes mellitus 78040095 Active 2021 Zayra Nicole null, [place] - [facility] 2 14:26:15 Hypercholes terolemia 76964139 Active 2021 Zayra Bryana null, [place] - [facility] 2 14:26:25 Posttraumat ic stress disorder 63353644 Active 2021 Zayra Nicole null, [place] - [facility] 2 14:26:33 History of pancreatiti s 3673469364709 7 Active 2021 Zayra Nicole null, [place] - [facility] 2 14:28:09 Bipolar disorder 58028466 Active 2021 Zayra Nicole null, [facility] 2 14:33:51 Lower urinary tract symptoms 963377687 Active 2021 Britney Silverio NP [address], [place], [address], [facility] 2 13:43:18 Hypertensiv e disorder 32260545 Active 2021 Britney Silverio NP [address], [place], [address], [facility] 2 13:44:13 Type 2 diabetes mellitus 37444140 Active 2021 Britney Silverio NP [address], [place], [address], [facility] 2 13:44:29 Dong's esophagus 981281187 [facility] 14:[facility]:57 Problem Notes None recorded. Procedures Surgical History Date Name Laterality Status Provider Name and Address Organization Details Recorded Time 10/22/19 21 Cancer Surgery completed [place] [facility] 12/13/2022 14:55:57 10/22/19 16 Back Surgery completed D[place] HULL [facility] 12/13/2022 14:55:57 10/22/18 96 Reconstructive Surgery completed D[place] HULL [facility] 12/13/2022 14:55:57 10/22/18 92 Abdominal Surgery completed [place] HULL [facility] 12/13/2022 14:55:57 appendectomy completed Zayra Nicole [place] - [place] [facility]NT [facility] 09/04/2022 14:31:07 hernia repair completed Zayra Nicole [facility] 09/04/2022 14:31:18 total replacement of hip completed Zayra Nicole [facility] 09/04/2022 14:31:37 total replacement of right knee joint completed Zayra Nicole [facility] 09/04/2022 14:31:50 cholecystectomy completed Zayra Nicole [facility] 09/04/2022 14:31:56 Imaging Results None recorded. Procedure Notes None recorded. Medical Equipment None Reported. Allergies Allergen ID Allergen Name Allergen Category Reaction Reaction Severity Criticality Documentation Date Start Date Code Code System Note Provider Name and Address Organization Details Recorded Time 62742 ibuprofen medicatio n Not available Not available Not available 09/04/2022 5640 [facility] 14:22:53 65010 naproxen medicatio n Not available Not available Not available 09/04/2022 7258 [facility] 2 14:23:03 54140 codeine medicatio n Not available Not available Not available 09/04/2022 2670 [facility] 2 14:23:18 40865 Tylenol with Codeine medicatio n Not available Not available Not available 09/04/2022 73885 6 [facility] 2 14:23:32 14740 Zofran medicatio n Not available Not available Not available 02/21/2023 55955 [facility] 3 14:54:28 Medications Name Sig Start Date Stop Date Status Note LastModified by Organization Details LastModified Time tetracyclin e 500 mg capsule active Not Available Not Available Not Available Miralax 17 gram/dose oral powder 09/05 completed Not Available Not Available Not Available atorvastati n 40 mg tablet take 1 tablet by mouth once daily active Not Available Not Available No t Available metformin 500 mg tablet TAKE 1 TABLET BY MOUTH EVERY DAY active Not Available Not Available No t Available nystatin 100,000 unit/mL oral suspension SWISH AND SWALLOW 5 ML BY MOUTH FOUR TIMES DAILY FOR 14 DAYS. RETAIN IN EACH SIDE OF THE MOUTH FOR 30 SECONDS BEFORE SWALLOWIN G 12/13 completed Not Available Not Available Not Available prednisone 10 mg tablet 09/05 completed Not Available Not Available Not Available doxycycline hyclate 100 mg capsule TAKE 1 CAPSULE BY MOUTH TWICE DAILY FOR 10 DAYS 12/13 completed Not Available Not Available Not Available azithromyci n 250 mg tablet TAKE 1 TABLET BY MOUTH DAILY FOR 6 DAYS. START ON DAY 2 OF THERAPY 12/13 completed Not Available Not Available Not Available amitriptyli ne 75 mg tablet TAKE 1 TABLET BY MOUTH AT BEDTIME 12/13 completed Not Available Not Available Not Available tizanidine 4 mg tablet TAKE 1 TABLET EVERY 8 HOURS NEEDED 09/05 completed Not Available Not Available Not Available promethazin e 6.25 mg/5 mL oral syrup 02/21 completed Not Available Not Available Not Available prazosin 1 mg capsule take 1 capsule by mouth at bedtime active Not Available Not Available No t Available phenazopyri dine 200 mg tablet TAKE 1 TABLET BY MOUTH THREE TIMES DAILY FOR 3 DAYS 12/13 completed Not Available Not Available Not Available prednisone 20 mg tablet TAKE 1 TABLET BY MOUTH EVERY DAY DIRECTED 02/21 completed Not Available Not Available Not Available metronidazo le 250 mg tablet active Not Available Not Available Not Available clonazepam 1 mg tablet take 1/2 tablet by mouth every morning then take 2 tablets by rhianna... (REFER TO PRESCRIPT ION NOTES). active Not Available Not Available No t Available amlodipine 2.5 mg tablet take 1 tablet by mouth once daily active Not Available Not Available No t Available ciprofloxac in 500 mg tablet TAKE 1 TABLET BY MOUTH TWICE DAILY FOR 14 DAYS FOR INFECTION 09/05 completed Not Available Not Available Not Available omeprazole 40 mg capsule,del ayed release take 1 capsule by mouth 30 MINUTES before breakfast once daily active Not Available Not Available No t Available tramadol 50 mg tablet take 2 tablets by mouth twice a day active Not Available Not Available No t Available amitriptyli ne 50 mg tablet take 1 tablet by mouth at bedtime active Not Available Not Available No t Available amoxicillin 500 mg tablet take 1 tablet by mouth three times a day active Not Available Not Available No t Available ketorolac 10 mg tablet TAKE 1 TABLET BY MOUTH EVERY 6 HOURS NEEDED FOR PAIN. DO NOT USE FOR MORE THAN 5 DAYS 09/05 completed Not Available Not Available Not Available oxycodone-a cetaminophe n 5 mg-325 mg tablet TAKE 1 TO 2 TABLETS BY MOUTH TWICE DAILY NEEDED FOR ABDOMINAL PAIN 09/05 completed Not Available Not Available Not Available amoxicillin 875 mg tablet TAKE 1 TABLET BY MOUTH TWICE DAILY active Not Available Not Available No t Available tamsulosin 0.4 mg capsule TAKE 1 CAPSULE BY MOUTH EVERY DAY IN THE MORNING active Not Available Not Available No t Available meclizine 25 mg tablet TAKE 1 TABLET EVERY 8 HOURS NEEDED 09/05 completed Not Available Not Available Not Available baclofen 10 mg tablet TAKE 1 TABLET BY MOUTH TWICE DAILY NEEDED 09/05 completed Not Available Not Available Not Available cephalexin 500 mg capsule TAKE 1 CAPSULE BY MOUTH TWICE DAILY FOR 7 DAYS 09/05 completed Not Available Not Available Not Available oseltamivir 75 mg capsule TAKE 1 CAPSULE BY MOUTH TWICE DAILY FOR 5 DAYS 02/21 completed Not Available Not Available Not Available promethazin e 25 mg tablet TAKE 1 TABLET EVERY 6 HOURS NEEDED 12/13 completed Not Available Not Available Not Available omeprazole 20 mg capsule,del ayed release active Not Available Not Available Not Available montelukast 10 mg tablet take 1 tablet by mouth once daily active Not Available Not Available No t Available ziprasidone 40 mg capsule take 1 capsule by mouth every evening active Not Available Not Available No t Available ergocalcife rol (vitamin D2) 1,250 mcg (50,000 unit) capsule take 1 capsule by mouth every week active Not Available Not Available No t Available azelastine 137 mcg (0.1 %) nasal spray instill 1 spray into each nostril twice a day active Not Available Not Available No t Available methylpredn isolone 4 mg tablets in a dose pack FOLLOW PACKAGE DIRECTION S active Not Available Not Available No t Available fluticasone propionate 50 mcg/actuati on nasal spray,suspe nsion SHAKE LIQUID AND USE 1 SPRAY IN EACH NOSTRIL TWICE DAILY active Not Available Not Available No t Available metformin ER 500 mg tablet,exte nded release 24 hr take 1 tablet by mouth EVERY MORNING WITH BREAKFAST active Not Available Not Available No t Available amoxicillin 875 mg-potassiu m clavulanate 125 mg tablet take 1 tablet by mouth twice a day for 7 days active Not Available Not Available No t Available Ventolin HFA 90 mcg/actuati on aerosol inhaler INHALE 1 TO 2 PUFFS INTO THE LUNGS EVERY 4 HOURS NEEDED active Not Available Not Available No t Available oxycodone 5 mg tablet TAKE 1 TABLET BY MOUTH THREE TIMES DAILY NEEDED 09/05 completed Not Available Not Available Not Available Bactrim DS 800 mg-160 mg tablet Take 1 tablet by oral route around the clock for 1 day. 12/13 completed Not Available Not Available Not Available glycerin (adult) rectal suppository INSERT 1 SUPPOSITO RY RECTALLY DAILY FOR CONSTIPAT ION 09/05 completed Not Available Not Available Not Available Constulose 10 gram/15 mL oral solution take 15 millilite r by mouth twice a day if needed for constipat ion active Not Available Not Available No t Available tramadol ER 100 mg tablet,exte nded release 24 hr take 1 tablet by mouth once daily AT 2 PM MAX DAILY AMOUNT 100 MILLIGRAM S active Not Available Not Available No t Available fenofibrate nanocrystal lized 48 mg tablet TAKE 1 TABLET BY MOUTH EVERY DAY 12/13 completed Not Available Not Available Not Available cholecalcif jag (vitamin D3) 1,250 mcg (50,000 unit) capsule TAKE ONE CAPSULE BY MOUTH EVERY WEEK active Not Available Not Available No t Available fenofibrate 54 mg tablet take 1 tablet by mouth once daily active Not Available Not Available No t Available Allergy Relief (fexofenadi ne) 180 mg tablet active Not Available Not Available Not Available icosapent ethyl 1 gram capsule TAKE 2 CAPSULES BY MOUTH TWICE DAILY active Not Available Not Available No t Available Creon 36,000 unit-114,00 0 unit-180,00 0 unit capsule,del ayed release take 1 capsule by mouth three times a day with food active Not Available Not Available No t Available Breo Ellipta 200 mcg-25 mcg/dose powder for inhalation inhale 1 puff by mouth and INTO THE LUNGS once daily as directed active Not Available Not Available No t Available naloxone 4 mg/actuatio n nasal spray active Not Available Not Available Not Available Xhance 93 mcg/actuati on breath activated aerosol USE 1 SPRAY IN EACH NOSTRIL TWICE A DAY active Not Available Not Available No t Available Ozempic 0.25 mg or 0.5 mg (2 mg/1.5 mL) subcutaneou s pen injector 12/13 completed Not Available Not Available Not Available Nucala 100 mg/mL subcutaneou s syringe active Not Available Not Available No t Available Nucala 100 mg/mL subcutaneou s auto-inject or 02/21 completed Not Available Not Available Not Available Ozempic 1 mg/dose (4 mg/3 mL) subcutaneou s pen injector INJECT 1 MILLIGRAM UNDER THE SKIN EVERY WEEK active Not Available Not Available No t Available BinaxNOW COVID-19 Ag Self Test kit TEST DIRECTED TODAY 02/21 completed Not Available Not Available Not Available Paxlovid 300 mg (150 mg x 2)-100 mg tablets in a dose pack TAKE DIRECTED ON PACK 02/21 completed Not Available Not Available Not Available Vitals Date Recorded Body height Body mass index (BMI) Body weight Provider Name and Address Organization Details Last Updated DateTime 12/13/2022 177.8 cm 31 kg/m2 04860.95 g DENTON HULL [facility] 12/13/2022 14:54:56 Date Recorded Body height Body mass index (BMI) Body weight Provider Name and Address Organization Details Last Updated DateTime 02/21/2023 177.8 cm 30.3 kg/m2 42805.99 g Zayra Bonnie [facility] 02/21/2023 14:54:13 Date Recorded Body height Body mass index (BMI) Body weight Provider Name and Address Organization Details Last Updated DateTime 09/05/2022 25.4 cm 1525.7 kg/m2 31236.54 g Zayra Bonnie [facility] 09/05/2022 13:14:47 Date Recorded Body height Body mass index (BMI) Body weight Provider Name and Address Organization Details Last Updated DateTime 10/03/2022 25.4 cm 1525.7 kg/m2 84485.54 g Tiffanie Collins [facility] 10/03/2022 16:36:16 Social History Question Answer Notes LastModified by Organizat ion Details LastModified Time Tobacco Smoking Status Never Smoker Zayra phillips [facility] 09/04/2022 14:30:37 Do You Have An Advance Directive? No Information not available 12/13/2022 Are You Blind Or Do You Have Difficulty Seeing? Yes [email or web address] Information not available 12/13/2022 What Is Your Level Of Caffeine Consumption? Heavy Information not available 02/21/2023 What Was The Date Of Your Most Recent Tobacco Screening? 12/13/2022 [email or web address] Information not available 12/13/2022 Are You Passively Exposed To Smoke? No [email or web address] Information not available 12/13/2022 Has Tobacco Cessation Counseling Been Provided? No [email or web address] Information not available 12/13/2022 How Many Years Have You Smoked Tobacco? 0 [email or web address] Information not available 12/13/2022 Sex: Unknown Functional Status Question Answer Note LastModified by Organizat ion Details LastModified Time Do you use any illicit or recreational drugs? No Information not available 09/04/2022 Do you or have you ever used any other forms of tobacco or nicotine? No [email or web address] Information not available 12/13/2022 What is your level of alcohol consumption? None Information not available 09/04/2022 What is your exercise level? Moderate [email or web address] Information not available 12/13/2022 Mental Status None recorded. Family History Relationship Description Onset Age of this Age Resolved Age Notes LastModified by Organization Details LastModified Time Father Depressive disorder [email or web address] Not available 2021 14:29:59 Father [employer] sverna Not available 2021 13:21:04 Father Malignant neoplasm of lung sverna Not available 2021 13:21:16 Notes:Negative Malignancy Medical History Condition Response Anxiety/Depression Y Enlarged Prostate Y Head Trauma/Injury Y Autoimmune disease Y Cancer Y High Cholesterol Y Allergies/Hayfever Y PTSD Y Back Pain Y Diabetes Y Hyperlipidemia Y Back Problems Y GERD/Reflux Y Past Encounters Encounter ID Performer Location Encounter Start Date Encounter Closed Date Diagnosis/Indication Diagnosis SNOMED-CT Code Diagnosis ICD10 Code Diagnosis Note [id number] Britney Silverio NP [facility] [address] [place] [address] 09/05/2022 13:08:29 09/05/2022 13:49:21 Screening for malignant neoplasm of prostate 973234907 Z12.5 Will check PSA today. Lower urin kandis tract symptoms 224044007 R39.9 Continue Flomax at this time. [facility] Hypertensive disorder 38 908597 I10 Continue with current regimen and follow-up with PCP. Type 2 edison betes mellitus 53904116 E11.9 Continue with current regimen and follow-up with PCP. [id number] Solomon Arguello DO [facility] [address] [place] [address] 10/03/2022 15:47:02 10/03/2022 16:30:28 Lower urinary tract symptoms 608311207 R39.9 Patient completed the workup for treatment of his enlarged prostate and or lower urinary tract symptoms. He is interested in the Urolift procedure. He understand s that this involves tiny implants that are used to hold up in the obstructed pathway that blocks urine flow.The details of the procedure were explained to the patient. Patient understand s that this does not require heating, cutting, or removing prostate tissue and that this is a minimally invasive procedure. The goal is for the patient to not require ongoing prostate medication . I explained that he may or may not have a urinary catheter overnight. Educationa l materials were given to the patient and consent was obtained. He will be notified by the scheduling department in regards to scheduling the procedure. All questions were answered. [id number] Solomon Arguello DO [facility] [address] [place] [address] 12/13/2022 14:38:56 12/13/2022 15:07:51 Lower urinary tract symptoms 362428966 R39.9 Lower urinary tract symptoms have greatly improved since UroLift 4 weeks ago. Advised patient's he may stop Flomax at this time. We will follow up in 3 months for further assessment of treatment response. Sooner if needed. Bipolar disorder 5101768 4 F31.9 Continue with current regimen and follow-up with PCP. Diabetes mellitus 822011 09 E11.9 Continue with current regimen and follow-up with PCP. Prostatitis 5948251 N41. 9 Denies signs or symptoms of prostatiti s at this time. [id number] Solomon Arguello DO [facility] [address] [place] [address] 02/21/2023 14:44:21 02/21/2023 15:18:18 Lower urinary tract symptoms 394143495 R39.9 Lower urinary tract symptoms have greatly improved since UroLift. Return in 6 months. Diabetes mellitus 866149 09 E11.9 Continue with current regimen and follow-up with PCP. Hypertensive disorder 38 415993 I10 Continue with current regimen and follow-up with PCP. Hypercholesterolemia 136 37025 E78.00 Continue with current regimen and follow-up with PCP. Health Concerns Section Related Observation LastModified by Organization Detai ls LastModified Time None Recorded Concern Status LastModified by Organization Details LastModified Time None Recorded Advance Directives Directive N: Payers Insurance Date Sequence Insurance Name Policy Number Policy Collazo Covered Member ID Collazo Member ID Guarantor Name 02/21/2023 2 [facility] (HMO) [id number] Christopher Eastover [id number] Christopher Eastover 08/26/2023 1 [facility] (MEDICARE REPLACEMENT/ ADVANTAGE - PPO) [id number] Christopher Eastover [id number] Christopher Malinda 08/26/2023 2 [place] Christjordener W Malinda [id number] Christopher Malinda Notes Date Note Type Note Provider Name and Address Organization Details Recorded Time 09/05/2022 text/html 51 year old whit e male in office for consult on prostatitis.Was having groin pain and increased LUTS.Seen at [facility] and diagnosed with prostatitis.Treat ed with Cipro and symptoms resolved.Reports he has had some LUTS for quite some time.Currently on Flomax but reports it seems less effective over time.No PSAs on file. Britney Silverio NP [address] [place] [place] [address], [address], [place] [facility] 09/05/2022 13:45:32 10/03/2022 text/html 51 year old rene e male in office for consult on prostatitis.Was having groin pain and increased LUTS.Seen at 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 States his symptoms have greatly improved. Denies nocturia or leaking. States he is able to get an erection. Denies gross hematuria. States he is continuing to take Flomax.No other symptoms reported. 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 Britney Silverio NP [address] [place], [address], [facility] 02/21/2023 17:00:20
--- OUTSIDE RECORDS SUMMARY | 2025-04-20 14:24 | XMS_ITS | Encounter Summary ---
Author Organization [facility] Address [address] [place] [address] Care Team Providers Care Roll Filler Name Role Phone Wesly Davies MD Unavailable [phone] Wesly Davies MD Unavailable [phone] Meg Lynn APRN.[facility] Primary Care Provider Source Comments In the event this information is protected by the Federal Confidentiality of Alcohol and Drug AbusePatient Records regulations: The Federal rules restrict any use of the information to criminally investigate or prosecute any alcohol or drug abuse patient.[facility] Reason for Visit * Reason Comments Refill Request Encounter Details Date Type Department Care Team (Late st Contact Info) Description 12/01/2024 Refill HOSP MAIN [id number] [phone] Raffaele Sharp PA-C [address] [place] [address] Refill Request Social History Tobacco Use Types Packs/Day Years Used Date Smoking Tobacco: Never Passive Smoke Exposure: Never Smokeless Tobacco: Never Alcohol Use Standard Drinks/Week Comments Not Currently 0 (1 standard drink = 0.6 oz pur e alcohol) [facility] Utilities Answer Date Recorded In the [...] any time in the past 12 m [facility], were you homeless or living in a intermediate (including now)? No 08/29/2024 Area Deprivation Index Answer Date Wilfred rded National Score (1-100), lower number is lower ri sk 84 07/17/2024 State Score (1-10), lower number is lower risk 8 07/17/2024 Data from: https://www.neighborhoodatlas.medicine.[facility].edu/. Last address used for calculation [address] [...] 07/07/2025 7:40 AM EDT [facility] [address] [place] [address] Kathy Bravo MD [address] [place] [address] Sept 16 740 virtual documented as of this encounter Visit Diagnoses Not on filedocumented in this encounter Care Teams Roll Filler Relationship Specialty Start Date End Date Meg Lynn APRN.CUSTOMER SECURITY CLERK [address] [place] [address] PCP - General Family Medicine 08/15/24 Wesly Davies MD [address] [address] Referring Gastroenterology 07/16/24 Wesly Davies MD [address] [place] [address] Referring Gastroenterology 07/25/24 documented as of this encounter
--- OUTSIDE RECORDS SUMMARY | 2025-04-20 14:24 | XMS_ITS | Clinical Summary ---
Author Organization [facility] Address [address] [place] [address] Care Team Providers Care Telecom Specialist Name Role Phone Meg Lynn APRN, CNP [...] and 1400 3 Active lipase-protease- amylase (CREON) 29390-555242 units CPEP delayed release capsuleIndicatio ns:Chronic pancreatitis, unspecified pancreatitis type (HCC),Medication refill Creon 79423 units oral delayed release capsule: TAKE 2 CAPSULES WITH MEALS (3 TIMES A DAY) AND 1 CAPSULE WITH SNACKS (1 DAILY). 200 capsule 1 4 Active Additional Information Patient taking differently: Creon 01523 units oral delayed release capsule: TAKE 3 CAPSULES WITH MEALS (3 TIMES A DAY) AND 1 CAPSULE WITH SNACKS (4 DAILY)., Reported on 02/26/2025 albuterol sulfate (PROAIR RESPICLICK) 108 (90 Base) MCG/ACT aerosol powder inhalationIndica tions:Asthma, unspecified asthma severity, unspecified whether complicated, unspecified whether persistent 2 puffs, Inhale, q6hr, PRN, # 1 EA, 0 Refill(s), Pharmacy: [facility] [facility] [address] each 4 Active fexofenadine (CHAKA) 180 MG [...] Encounters Date Type Department Care Team Description 04/02/[address] [address] Meg Lynn APRN - RAMSEY 02/26/2025 1:40 PM EDT Office Visit [facility] [address] [place] [address] Meg Lynn, WIRE WELDER - WHITEWATER RAFTING GUIDE Bilateral impacted cerumen (Primary Dx); Otalgia of both ears 02/25/2025 Telephone [facility] [address] [place] [address] Meg Lynn, WIRE WELDER - WHITEWATER RAFTING GUIDE ED Follow-up (Transitional care call/) 02/24/2025 11:33 AM EDT - 02/24/2025 1:17 PM EDT Emergency [facility] Emergency Department [address] [id number] Nery Gibbons DO Contusion of finger of left hand, unspecified finger, initial encounter (Primary Dx) Discharge Disposition: Home or Self Care 02/24/2025 Travel 02/17/2025 Results Follow-Up [facility] [address] [place] [facility] [address] Meg Lynn APRN - RAMSEY Results 02/17/2025 Results Follow-Up [facility] [address] [place] [facility] [address] Meg Lynn, WIRE WELDER - WHITEWATER RAFTING GUIDE 02/16/2025 9:42 AM EDT - 02/16/2025 11:59 PM EDT Hospital Encounter [facility] [address] [place] [address] Left lower quadrant abdominal pain; History of diverticulitis Discharge Disposition: Home or Self Care 02/16/2025 9:40 AM EDT - 02/18/2025 11:59 PM EDT Hospital Encounter [facility] CT Scan [address] [place] [address] Left lower quadrant abdominal pain; History of diverticulitis Discharge Disposition: Home or Self Care 02/16/2025 Orders Only [facility] [address] [place] [address] Meg Lynn, WIRE WELDER - WHITEWATER RAFTING GUIDE Left lower quadrant abdominal pain (Primary Dx); History of diverticulitis 02/16/2025 Telephone [facility] [address] [place] [address] Meg Lynn APRN - RAMSEY CT 02/16/2025 Telephone [facility] [address] [place] [address] Meg Lynn, WIRE WELDER - RAMSEY Diverticulitis 02/09/2025 Refill [facility] [address] [place] [facility] [address] Meg Lynn, NATE - RAMSEY Medication Refill 01/30/2025 9:00 AM EDT Office Visit [facility] [address] [place] [address] Meg Lynn, WIRE WELDER - WHITEWATER RAFTING GUIDE Binge eating (Primary Dx) 01/23/2025 Abstract [facility] [address] [place] [address] Meg Lynn, WIRE WELDER - WHITEWATER RAFTING GUIDE 01/22/2025 Abstract [facility] [address] [place] [address] Meg Lynn, WIRE WELDER - WHITEWATER RAFTING GUIDE from Last 3 Months Immunizations Immunization Administration Dates Next Due COVID-19, MODERNA BLUE estrellitabreann r, Primary or Immunocompromised, (age 12y+), IM, [...] 0.6 oz pur e alcohol) on occasion [facility] [employer] Answer Date Recorded In the past 12 months has [employer], [employer], oil, or water [employer] threatened to shut off services in your [...] place to sleep or slept in a snf (including now)? No 02/07/2024 Housing Stability Vital [...] time in the past 12 m [facility], were you homeless or living in a snf (including now)? No 12/15/2024 Food Insecurity Answer [...] Description 08/20/2025 11:00 AM EDT Office Visit [facility] Part of [address] [place] [id number] Parvez Chatterjee MD [address] [place] [address], [address] [place] [address] one year PSA Health Maintenance Due Date Last Done Comments Diabetic foot exam 1979 Diabetic Alb to Cr ratio (uACR) test 1987 Diabetic retinal exam 1987 FIT/FOBT: Average risk 2014 Sigmoidoscopy/CT colonography 2014 COVID-19 Vaccine ( season) 2024 07/14/2023, 07/07/2021, 02/01/2021, Additional history exists Lipids 02/07/2025 02/08/2024, 07/22, 08/09/2020, Additional history exists Flu vaccine (Season Ended) 05/22/202508/14, 08/13/2023, 06/29/2020, [...] acute osseous abnormality. us Nery Gibbons DO [facility] Final Result * CT ABDOMEN PELVIS W [...] changes of Whipple and splenectomy. Meg Lynn WIRE WELDER - WHITEWATER RAFTING GUIDE [facility] CT ORDERABLES Fi nal Result * (ABNORMAL) CBC with Auto Differential (02/16/2025 9:43 AM EDT) WBC 11.7(H) 3.5 - 11.3 k/uL 02/16/2025 9:43 AM EDT [facility] RBC 4.47 4.21 - 5.77 m/uL 02/16/2025 9:43 AM EDT [facility] Hemoglobin 12.5(L) 13.0 - 17.0 g/dL 02/16/2025 9:43 AM EDT [facility] Hematocrit 39.9(L) 40.7 - 50.3 % 02/16/2025 9:43 AM [facility] MCV 89.3 82.6 - 102.9 fL 02/16/2025 9:43 AM [facility] MCH 28.0 25.2 - 33.5 pg 02/16/2025 9:43 AM [facility] MCHC 31.3 28.4 - 34.8 g/dL 02/16/2025 9:43 AM [facility] RDW 15.3(H) 11.8 - 14.4 % 02/16/2025 9:43 AM [facility] Platelets 437 138 - 453 k/uL 02/16/2025 9:43 AM [facility] MPV 9.2 8.1 - 13.5 fL 02/16/2025 9:43 AM [facility] NRBC Automated 0.0 0.0 per 100 WBC 02/16/2025 9:43 AM [facility] Neutrophils % 63 36 - 65 % 02/16/2025 9:43 AM [facility] Lymphocytes % 25 24 - 43 % 02/16/2025 9:43 AM [facility] Monocytes % 10 3 - 12 % 02/16/2025 9:43 AM [facility] Eosinophils % 1 1 - 4 % 02/16/2025 9:43 AM [facility] Basophils % 1 0 - 2 % 02/16/2025 9:43 AM [facility] Immature Granulocytes % 0 0 % 02/16/2025 9:43 AM [facility] Neutrophils Absolute 7.30 1.50 - 8.10 k/uL 02/16/2025 9:43 AM [facility] Lymphocytes Absolute 2.97 1.10 - 3.70 k/uL 02/16/2025 9:43 AM [facility] Monocytes Absolute 1.21(H) 0.10 - 1.20 k/uL 02/16/2025 9:43 AM EDT [facility] Eosinophils Absolute 0.06 0.00 - 0.44 k/uL 02/16/2025 9:43 AM EDT [facility] Basophils Absolute 0.09 0.00 - 0.20 k/uL 02/16/2025 9:43 AM [facility] Immature Granulocytes Absolute 0.04 0.00 - 0.30 k/uL 02/16/2025 9:43 AM T [facility] Blood BLOOD SPECIMEN / Unknown 02/16/2025 9:43 AM EDT 02/16/2025 9:44 AM EDT Meg Lynn WIRE WELDER - WHITEWATER RAFTING GUIDE HEMATOLOGY ORDERABLE S Final Result [facility] [address] [phone] * (ABNORMAL) Basic Metabolic Panel (02/16/2025 9:43 AM EDT) Sodium 139 136 - 145 mmol/L 02/16/2025 9:43 AM [facility] Potassium 5.1 3.7 - 5.3 mmol/L 02/16/2025 9:43 AM [facility] Chloride 100 98 - 107 mmol/L 02/16/2025 9:43 AM [facility] CO2 31 20 - 31 mmol/L 02/16/2025 9:43 AM [facility] Anion Gap 8(L) 9 - 16 mmol/L 02/16/2025 9:43 AM [facility] Glucose 117(H) 74 - 99 mg/dL 02/16/2025 9:43 AM [facility] BUN 14 6 - 20 mg/dL 02/16/2025 9:43 AM [facility] Creatinine 1.0 0.70 - 1.20 mg/dL 02/16/2025 9:43 AM [facility] Est, Glom Filt Rate >90 >60 mL/min/1.7 3m2 02/16/2025 9:43 AM EDT [facility] Comment: These results are not intended [...] 9 - 20 02/16/2025 9:43 AM EDT [facility] Calcium 9.9 8.6 - 10.4 mg/dL 02/16/2025 9:43 AM EDT [facility] Blood BLOOD SPECIMEN / Unknown 02/16/2025 9:43 AM EDT 02/16/2025 9:44 AM EDT Meg Lynn WIRE WELDER - WHITEWATER RAFTING GUIDE CHEMISTRY ORDERABLES Final Result [facility] [address] [phone] * (ABNORMAL) POCT glycosylated hemoglobin (Hb A1C) (06/18/2024 2:30 PM EDT) Hemoglobin A1C 6.7 % BLOOD SPECIMEN / Unknown 06/18/2024 2:30 PM EDT Meg Lynn WIRE WELDER - WHITEWATER RAFTING GUIDE POINT OF CARE TEST O RDERABLES Final Result * LDL Cholesterol, Direct (02/08/2024 5:45 AM EDT) LDL Direct 65 mg/dL 02/08/2024 5:45 AM EDT [facility] 02/08/2024 5:45 AM EDT 02/08/2024 6:17 AM EDT Rosenda Rankin WIRE WELDER - WHITEWATER RAFTING GUIDE CHEMISTRY ORDERABLES Fi nal Result Performing Organization Address [facility]/ZIP Co de Phone Number [facility] [address] [place] [address], [facility] [phone] [address], [facility] [phone] * Hepatitis Panel, Acute (02/07/2024 6:40 PM EDT) Pathologist [facility] Hepatitis B Surface Ag NONREACTIVE NONREACTIVE 02/07/2024 6:40 PM EDT [facility] Hepatitis C Ab NONREACTIVE NONREACTIVE 02/07/20 6:40 PM EDT [facility] Comment: The hepatitis C procedure used in [...] IgM NONREACTIVE NONREACTIVE 01/20 6:40 PM EDT [facility] Hep A IgM NONREACTIVE NONREACTIVE 02/07/2024 6:40 PM EDT [facility] Blood BLOOD SPECIMEN / Unknown 02/07/2024 6:40 PM EDT 02/07/2024 6:50 PM EDT us Sean Shepard MD IMMUNOLOGY ORDERABLES Final Resu lt Performing Organization Address [facility]/ZIP Co de Phone Number [facility] [address] [place] [address], [facility] [phone] [place] [address], [facility] [phone] * Colonoscopy (10/02/2023 8:30 AM EST) [facility], User - 10/02/2023 8:30 AM EST No dictation us Carissa Alexander MD ENDOSCOPY ORDERABLES Final Res ult * (ABNORMAL) Fecal DNA Colorectal cancer screening (Cologuard) (05/30/2023 1:26 PM EDT) Pathologist [facility] FIT-DNA (Cologuard) Positive( A) Negative 06/08/2023 1:37 PM EDT [facility] (CLIA #:[id number]) Comment: POSITIVE TEST RESULT. A positive Cologuard [...] screened with both Cologuard and colonoscopy. (Venita Shipley et al, N Engl J Med 2014;370(14):6843-6845.) Cologuard may produce a false negative or false positive result (no colorectal cancer or precancerous polyp present at colonoscopy follow up). A negative Cologuard test result does not guarantee the absence of CRC or advanced adenoma (pre-cancer). The current Cologuard screening interval is every 3 years. (Australian Cancer Society and U.S. Multi-Society Task Force). Cologuard performance data in a 10,000 patient pivotal study using colonoscopy as the reference method can be accessed at the following location: www.[employer].Wymsee/results. Additional description of the Cologuard test process, warnings and precautions can be found at www.Taplisterrd.com. Feces (substance) STOOL SPECIMEN / Unknown 05/30/2023 1:26 PM EDT 05/31/2023 10:23 PM EDT us Meg Lynn WIRE WELDER - WHITEWATER RAFTING GUIDE MICROBIOLOGY - [facility] ORDERABLES Final Result [facility] (CLIA #:[id number]) [address] [place] [address], [facility] [phone] * HIV Screen (03/01/2018 11:47 AM EDT) HIV-2 Ab Negative Negative 03/04/2018 12:41 AM EDT [facility] Comment: The specimen was non-reactive [...] Cellular and Tissue-Based Products (HCT/P). Performed by [employer], [address] [place] [address] [email or web address], Saw Zhu MD - Lab. Director Performed at [facility]. [place], [place] BLOOD SPECIMEN / Unknown 03/01/2018 11:47 AM EDT 03/01/2018 1:46 PM EDT us Lillian Figueroa MD IMMUNOLOGY ORDERABLES Final R esult [facility] [address] [id number], [facility] [phone] [facility] [address] [place] [address], [facility] [phone] from Last 3 Months or Most Recently Relevant to Health Maintenance Insurance [place]IC[place] [facility] DUAL COMPLETE [place] Advance Directives * Full Code (Latest Code Status on File) Date Activated Date Inactivated Comments 02/07/2024 1:19 PM 02/08/2024 4:10 PM * Full Code Date Activated Date Inactivated Comments 05/19/2023 12:25 AM 05/22/2023 7:29 PM Healthcare Agents on File Name Relationship Healthcare Agent Relationship Communication January Rutledge Spouse Primary Decision Maker [email or web address] Care Teams Telecom Specialist Relationship Specialty Start Date End Date Meg Lynn, NATE - WHITEWATER RAFTING GUIDE [address] [id number] PCP - General Certified Nurse Practitioner 04/23/23
--- OUTSIDE RECORDS SUMMARY | 2025-04-20 14:24 | XMS_ITS | Encounter Summary ---
Author Organization [facility] Address [address] [place] [address] Care Team Providers Care Return Agent Name Role Phone Wesly Davies MD Unavailable [phone] Wesly Davies MD Unavailable [phone] Meg Lynn APRN.[facility] Primary Care Provider Source Comments In the event this information is protected by the Federal Confidentiality of Alcohol and Drug AbusePatient Records regulations: The Federal rules restrict any use of the information to criminally investigate or prosecute any alcohol or drug abuse patient.[facility] Encounter Details Date Type Department Care Team (Late st Contact Info) Description 01/22/2025 Get Medical Advice Endocrinology [address] [place] [address] Kathy Bravo MD [address] [place] [address] EGD on SundayJanuary 23 Social History Tobacco Use Types Packs/Day Years Used Date Smoking Tobacco: Never Passive Smoke Exposure: Never Smokeless Tobacco: Never Alcohol Use Standard Drinks/Week Comments Not Currently 0 (1 standard drink = 0.6 oz pur e alcohol) [facility] Utilities Answer Date Recorded In [...] any time in the past 12 [facility], were you homeless or living in a custodial (including now)? No 08/29/2024 Area Deprivation Index Answer Date Wilfred rded National Score (1-100), lower number is lower ri sk 84 01/23/2025 State Score (1-10), lower number is lower risk 8 01/23/2025 Data from: https://www.neighborhoodatlas.medicine.[facility].edu/. Last address used for calculation [...] 07/07/2025 7:40 AM EDT [facility] [address] [place] [address] Kathy Bravo MD [address] [place] [address] Sept 16 740 virtual documented as of this encounter Visit Diagnoses Not on filedocumented in this encounter Care Teams Return Agent Relationship Specialty Start Date End Date Meg Lynn APRN.FINISH GRINDER [address] [place] [address] PCP - General Family Medicine 08/15/24 Wesly Davies MD [address] [place], [place] [phone] Referring Gastroenterology 07/16/24 Wesly Davies MD [address] [place] [place] [address] Referring Gastroenterology 07/25/24 documented as of this encounter
--- OUTSIDE RECORDS SUMMARY | 2025-04-20 14:24 | XMS_ITS | Encounter Summary ---
Author Organization [facility] Address [address] [place] [address] Care Team Providers Care Doctor Of Audiology Name Role Phone Meg Lynn APRN, CNP Primary Care Provid er Encounter Details Date Type Department Care Team (Latest Contact Info) Description 04/25/2024 Transcribe Orders [facility] [address] [place] [address] Danica Conklin MD [address] [place] [address] Cervical spinal stenosis (Primary Dx) Social History Tobacco Use Types Packs/Day Years Used Date Smoking Tobacco: Never Smokeless Tobacco: Never Alcohol Use Standard Drinks/Week Comments Not Currently 0 (1 standard drink = 0.6 oz pur e alcohol) on occasion [facility] Utilities Answer Date Recorded In the past 12 months has [employer], gas, oil, or water company threatened [...] place to sleep or slept in a correction (including now)? No 02/07/2024 Food Insecurity Answer [...] Description 08/20/2025 11:00 AM EDT Office Visit [facility] Part of [address] [place] [address] Parvez Chatterjee MD [address] [place] [address], [facility] [address] [place] [address] one year PSA documented as [...] documented as of this encounter Care Teams Doctor Of Audiology Relationship Specialty Start Date End Date Mge Lynn APRN - MANAGER STARS [address] [place] [address] PCP - General Certified Nurse Practitioner 04/23/23 documented as of this encounter
--- OUTSIDE RECORDS SUMMARY | 2025-04-20 14:24 | XMS_ITS | Encounter Summary ---
Author Organization [facility] Address [address] [place] [address] Care Team Providers Care Travel Cota Name Role Phone Wesly Davies MD Unavailable [phone] Wesly Davies MD Unavailable [phone] Meg Lynn APRN.[facility] Primary Care Provider Source Comments In the event this information is protected by the Federal Confidentiality of Alcohol and Drug AbusePatient Records regulations: The Federal rules restrict any use of the information to criminally investigate or prosecute any alcohol or drug abuse patient.[facility] Encounter Details Date Type Department Care Team (Late st Contact Info) Description 02/11/2025 Get Medical Advice General Surgery [address] [phone] [place] [address] [place] [phone] Results of EGD Social History Tobacco Use Types Packs/Day Years Used Date Smoking Tobacco: Never Passive Smoke Exposure: Never Smokeless Tobacco: Never Alcohol Use Standard Drinks/Week Comments Not Currently 0 (1 standard drink = 0.6 oz pur e alcohol) [facility] Utilities Answer Date Recorded In the past 12 months has th e [employer], gas, oil, or water [employer] threatened to shut off services in your [...] any time in the past 12 m [facility], were you homeless or living in a custodial (including now)? No 08/29/2024 Area Deprivation Index Answer Date Wilfred rded National Score (1-100), lower number is lower ri sk 84 01/23/2025 State Score (1-10), lower number is lower risk 8 01/23/2025 Data from: https://www.neighborhoodatlas.medicine.[facility].edu/. Last address used for calculation [...] 07/07/2025 7:40 AM EDT [facility] [address] [place] [phone] Kathy Bravo MD [address] [place] [address] Sept 16 740 virtual documented as of this encounter Visit Diagnoses Not on filedocumented in this encounter Care Teams Travel Cota Relationship Specialty Start Date End Date Meg Lynn APRN.ASSISTANT OFFSET PRESS OPERATOR [address] [place] [address] PCP - General Family Medicine 08/15/24 Wesly Davies MD [address] [facility] [place] [address] Referring Gastroenterology 07/16/24 Wesly Davies MD [address] [place], [place] [id number] Referring Gastroenterology 07/25/24 documented as of this encounter
--- OUTSIDE RECORDS SUMMARY | 2025-04-20 14:24 | XMS_ITS | Data Portability ---
Author Organization [facility], [facility] IP Address [address] [facility] [address] Care Team Providers Care Television Service Engineer Name Role Phone BAMBI RODRÍGUEZ Primary Care Provider [phone] Assessment No assessment recorded. Plan of Treatment [...] midnight. register 30 min early. 2022 023 [facility], [address], [place], [address], 10:41:26 Medication Orders Creon 36,000 unit-114,0 00 unit-180,0 00 unit capsule,de layed release 2022 023 [email or web address][id number], [address] [facility] , [place], [place], [id number], 17:28:26 Patient TargetsNo targets recorded. Patient Instructions Encounter Date Encounter Id Patient Instructions Last Modified By Organization Details Last Modified Time 03/29/2023 [id number] Delia, Vicki soriano CMA, attest that I [...] procedures; referring and communicating with other health manager career (when not separately reported); documenting clinical information [...] Details Recorded Time Exocrine pancreatic insufficien cy 03097999 Active 2022 OSCAR Nunez, Nick - [facility] 16:46:57 History of pancreatiti s 5096004380642 7 Active 2022 Vicki Tolbert CCMA null, [facility] 3 16:46:58 Hypertrigly ceridemia 693148367 Active 2022 Vicki Tolbert CCMA null, [facility] 3 16:47:32 Type 2 diabetes mellitus without complicatio n 927191310 Active 2022 Vicki Tolbert CCMA null, [facility] 3 16:49:29 History of polyp of colon 463408838 Active 2022 Vicki Tolbert CCMA null, 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 3 16:49:31 Problem Notes None recorded. Procedures Surgical History Date Name Laterality Status Provider Name and Address Organization Details Recorded Time Appendectomy completed Not Available [facility] 01/20/2023 14:26:18 total knee replacement completed Not Available [facility] 01/20/2023 14:26:18 Back Surgery completed Not Available [facility] 01/20/2023 14:26:18 Hernia Repair completed Not Available [facility] 01/20/2023 14:26:18 leg repair completed Not Available [facility] 01/20/2023 14:26:18 Cholecystectomy completed Not Available [facility] 01/20/2023 14:26:18 Imaging Results None recorded. Procedure Notes None recorded. Medical Equipment None Reported. Allergies Allergen ID Allergen Name Allergen Category Reaction Reaction Severity Criticality Documentation Date Start Date Code Code System Note Provider Name and Address Organization Details Recorded Time 18026 Zofran medicatio n Not available Not available Not available 01/20/2023 76428 RxNorm Not Available [facility] 14:28:47 81032 codeine medicatio n Not available Not available Not available 01/20/2023 2670 RxNorm Not Available [facility] 04/01/202 3 14:28:47 Medications Name Sig Start [...] Not Available No t Available amoxicillin 875 mg-potmadonnaiu m clavulanate 125 mg tablet TAKE 1 [...] in Arterial blood by Pulse oximetry Systolic And Diastolic Provider Name and Address Organization Details Last Updated DateTime 3 177.8 cm 72 /min 15.99 /min 98.4 [degF] 31.1 kg/m2 44245.5 4 g 97 % 97 % 124/80 mm[Hg] Antonia Reyes CMA [place] - [facility] 3 16:16:17 Social History Question Answer Notes LastModified by Handyizat ion Details LastModified Time Tobacco Smoking Status Never Smoker Not Available [facility] 01/20/2023 14:26:08 What Is Your Level Of Caffeine Consumption? Moderate [id number] Information not available 01/20/2023 Sex: Unknown Functional Status Question Answer Note LastModified by Handyizat Live[employer] Details LastModified Time Do you use any illicit or recreational drugs? No [id number] Information not available 01/20/2023 What is your level of alcohol consumption? None [id number] Information not available 01/20/2023 Mental Status None recorded. Family History Relationship Description Onset Age of this Age Resolved Age Notes LastModified by Organization Details LastModified Time Mother Diabetes mellitus [id number] Not available 01/20/2023 14:26:19 Mother Arthritis [id number] Not available 01/20/2023 14:26:19 Brother Hypertensive disorder [id number] Not available 01/20/2023 14:26:19 Father Asthma [id number] Not available 01/20/2023 14:26:19 Medical History Condition Response Diarrhea N Hernia(s) N Vomiting blood N Stomach pain N Ear or Hearing Problems Y Abnormal Weight Loss/Gain N Vomiting N Depression N Bloating N Peptic Ulcer Disease N Anemia N Prostate Problems Y restless leg syndrome N Constipation N Appetite, poor N Abnormal Weight Loss N Gas N Esophageal Reflux N Falls or Gait Issues N Alcoholism N Anxiety Disorder Y Patient denies significant past medical history N Diabetes Y Hemorrhoids N Nausea Alone N Arthritis Y Heartburn/Reflux N Vitamin D deficiency N Cancer Y Chronic Pain N Rectal Bleeding N Allergies Y ADHD N Bowel changes N Basal Cell Carcinoma N Bronchitis Y Heart Attack (DC)/Angina N Difficulty swallowing/Dysphagia N B12 deficiency N Mouth sores N Indigestion N Headaches or Dizziness N Past Encounters Encounter ID Performer Location Encounter Start Date Encounter Closed Date Diagnosis/Indication Diagnosis SNOMED-CT Code Diagnosis ICD10 Code Diagnosis Note [id number] Ty Elam, DO [facility] [address] [facility] [place] [address] 03/29/2023 15:34:10 03/29/2023 16:56:28 Exocrine pancreatic insufficiency 35646060 K86.81 continue on creon 36,000 units take 2 capsules tid with meals. script sent in today History of pancreatitis 7471527270 9107 Z87.19 Pancreatit is 05/08/22. ordered lab work Hypertriglyceridemia 302 652131 E78.2 on atorvastat inon fenofibrat stephanie vascepa ordered lab work Type 2 edison betes mellitus without complication 379638182 E11.9 continue medication continue to monitor ordered lab work History of polyp of colon 521613385 Z86.010 ordered colonoscop y discussed procedure and prep will need a ride home Dong's esophagus 3029 30596 K22.70 ordered egddiscuss ed procedurew ill need a ride home Non-alcoho lic fatty liver 263896119 K76.0 ordered elastogram ordered lab work Health Concerns Section Related Observation LastModified by Organization Detai ls LastModified Time None Recorded Concern Status LastModified by Organization Details LastModified Time None Recorded Advance Directives Directive None Recorded Payers Insurance Date Sequence Insurance Name Policy Number Policy Collazo Covered Member ID Collazo Member ID Guarantor Name 03/30/2023 1 [facility] (MEDICARE REPLACEMENT/ ADVANTAGE - PPO) [id number] Thomas Petty [id number] Thomas Petty 03/29/2023 1 [place] Thomas Petty [id number] Thomas Petty Notes Date Note Type Note [...] runs well at home. Ty Elam, DO [address] [place] [address], [place], [address], [facility] 03/30/2023 13:59:47
--- OUTSIDE RECORDS SUMMARY | 2025-04-20 14:24 | XMS_ITS | Encounter Summary ---
Author Organization [facility] Address [address] [place] [address] Care Team Providers Care Lokie Driver Name Role Phone Wesly Davies MD Unavailable [phone] Wesly Davies MD Unavailable [phone] Meg Lynn APRN.[facility] Primary Care Provider Source Comments In the event this information is protected by the Federal Confidentiality of Alcohol and Drug AbusePatient Records regulations: The Federal rules restrict any use of the information to criminally investigate or prosecute any alcohol or drug abuse patient.[facility] Reason for Visit * Reason Comments Insulin Pump Settings Encounter Details Date Type Department Care Team (Late st Contact Info) Description 10/07/2024 Telephone Diabetic Education Main X20 [address] [place] [address] Dario Hines, [facility] [address] [place] [address] Insulin Pump Settings Social History Tobacco Use Types Packs/Day Years Used Date Smoking Tobacco: Never Passive Smoke Exposure: Never Smokeless Tobacco: Never Alcohol Use Standard Drinks/Week Comments Not Currently 0 (1 standard drink = 0.6 oz pur e alcohol) [facility] Utilities Answer Date Recorded In the [...] the past [address] [facility], were you homeless or living in a assisted (including now)? No 08/29/2024 Area Deprivation Index Answer Date Wilfred rded National Score (1-100), lower number is lower ri sk 84 07/17/2024 State Score (1-10), lower number is lower risk 8 07/17/2024 Data from: https://www.neighborhoodatlas.medicine.[facility].edu/. Last address used for calculation [...] if you have any questions! Thanks, Benji Hines UPHOLSTERY MECHANIC documented in this encounter Plan of Treatment Upcoming Encounters Date Type Department Care Team (Latest Contact Info) Description 07/07/2025 7:40 AM EDT [facility] Endocrinology [address] [place] [address] Kathy Bravo MD [address] [place] [address] Jun 16 740 virtual documented as of this encounter Visit Diagnoses Not on filedocumented in this encounter Care Teams Lokie Driver Relationship Specialty Start Date End Date Meg Lynn, RESTAURANT LINE COOK.GERIATRIC NURSE ASSISTANT [address] [place] [address] PCP - General Family Medicine 08/15/24 Wesly Davies MD [address] [place] [address] Referring Gastroenterology 07/16/24 Wesly Davies MD [address] [place] [address] Referring Gastroenterology 07/25/24 documented as of this encounter
--- OUTSIDE RECORDS SUMMARY | 2025-04-20 14:24 | XMS_ITS | Encounter Summary ---
Author Organization [facility] Address [address] [place] [address] Care Team Providers Care Microscopist Name Role Phone Wesly Davies MD Unavailable [phone] Wesly Davies MD Unavailable [phone] Meg Lynn APRN.[facility] Primary Care Provider Source Comments In the event this information is protected by the Federal Confidentiality of Alcohol and Drug AbusePatient Records regulations: The Federal rules restrict any use of the information to criminally investigate or prosecute any alcohol or drug abuse patient.[facility] Encounter Details Date Type Department Care Team (Late st Contact Info) Description 09/25/2024 Patient Msg Endocrinology [address] [place] [address] Kathy Bravo MD [address] [place] [address] Update (And Sorry) Social History Tobacco Use Types Packs/Day Years Used Date Smoking Tobacco: Never Passive Smoke Exposure: Never Smokeless Tobacco: Never Alcohol Use Standard Drinks/Week Comments Not Currently 0 (1 standard drink = 0.6 oz pur e alcohol) [facility] Utilities Answer Date Recorded In the past 12 months has th e electric, gas, oil, or water [employer] threatened to shut off services in your [...] in the past 12 m [facility], were you homeless or living in a intermediate (including now)? No 08/29/2024 Area Deprivation Index Answer Date Wilfred rded National Score (1-100), lower number is lower ri sk 84 07/17/2024 State Score (1-10), lower number is lower risk 8 07/17/2024 Data from: https://www.neighborhoodatlas.medicine.[facility].edu/. 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
--- OUTSIDE RECORDS SUMMARY | 2025-04-20 14:24 | XMS_ITS | Clinical Summary ---
Author Organization [facility] Address [id number] 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[facility]) 09/13/2021 Posttraumatic stress disorder 01/26/2020 Chronic anxiety [...] drink = 0.6 oz pur e alcohol) [facility] Utilities Answer Date Recorded In the past 12 months has [employer], gas, oil, or water [employer] threatened to shut off services in your [...] Completed 08/07/2020, Medical Devices Implanted Type Area Foreign Food Specialty Cook Device Identifier Shelf Expiration Date Model / Serial / Lot Right Jhip, Fa, And Chest, Also Scs Insurance Advance Directives * Full Code (Latest Code Status on File) Date Activated Date Inactivated Comments 05/24/2024 4:44 AM 05/24/2024 7:04 PM Care Teams Glass Calibrator Relationship Specialty Start Date End Date Meg Lynn APRN-PEGGER DOBBY LOOMS [address] [place] [id number] PCP - General Nurse Practitioner 07/16/23
--- OUTSIDE RECORDS SUMMARY | 2025-04-20 14:24 | XMS_ITS | Encounter Summary ---
Author Organization [facility] Address [address] [place] [address] Care Team Providers Care Supervisor Concrete Stone Finishing Name Role Phone Meg Lynn APRN, CNP Primary Care Provid er Reason for Visit * Reason Comments Medication Refill Encounter Details Date Type Department Care Team (Late st Contact Info) Description 04/27/2018 Refill [facility] Family Medicine [address] [place] [address] Lillian Figueroa MD [address] [place] [address] Medication Refill Social History Tobacco Use Types [...] Description 08/20/2025 11:00 AM EDT Office Visit [facility] UROLOGY Part of [address] [place] [address] Parvez Chatterjee MD [address] [facility], [address] [place] [address] one year PSA documented as [...] documented as of this encounter Care Teams Supervisor Concrete Stone Finishing Relationship Specialty Start Date End Date Meg Lynn APRN - FOREIGN POLICY OFFICER [address] [place] [address] PCP - General Certified Nurse Practitioner 04/23/23 documented as of this encounter
--- OUTSIDE RECORDS SUMMARY | 2025-04-20 14:24 | XMS_ITS | Clinical Summary ---
Author Organization [facility] Address [address] [place] [address] Care Team Providers Care Rover Tender Name Role Phone Meg Lynn MD Primary Care Provider Allergies Active Allergy Reactions Criticality Noted Date Comments Codeine Hives,Nausea And Vomiting,Unknown High Ondansetron Hives,Nausea And Vomiting Medium 1 Medications albuterol sulfate (ProAir RespiClick) 90 mcg/actuation aerosol powdr breath activated 2 puffs, Inhale, q6hr, PRN, # 1 EA, 0 Refill(s), Pharmacy: [address] 03/25/2024 Active amitriptyline (Elavil) 50 mg [...] by mouth at bedtime. 10/31/2021 Active pancrelipase, Ppv-Ysep-Qcqw, (Creon) 36,000-114,000- 180,000 unit capsule,delayed release(DR/EC) capsule Creon 23389 units oral delayed release capsule: TAKE 2 [...] 01/17/2018 Active ergocalciferol (Vitamin D-2) 1.25 MG (82211 Units) capsule Take 50,000 Units by mouth [...] complete this topic Insurance [employer] MEDICARE [place] [id number] Care Teams Rover Tender Relationship Specialty Start Date End Date Meg Lynn MD [address] [place] [address] PCP - General 06/26/24
--- OUTSIDE RECORDS SUMMARY | 2025-04-20 14:24 | XMS_ITS | Encounter Summary ---
Author Organization [facility] Address [address] [place] [address] Care Team Providers Care Glass Blowing Lathe Operator Name Role Phone Wesly Davies MD Unavailable [phone] Wesly Davies MD Unavailable [phone] Meg Lynn APRN.[facility] Primary Care Provider Source Comments In the event this information is protected by the Federal Confidentiality of Alcohol and Drug AbusePatient Records regulations: The Federal rules restrict any use of the information to criminally investigate or prosecute any alcohol or drug abuse patient.[facility] Encounter Details Date Type Department Care Team (Late st Contact Info) Description 12/05/2024 Get Medical Advice General Surgery [address] [address] [place] [address] [place] [id number] Metal on right side ribs xray Social History Tobacco Use Types Packs/Day Years Used Date Smoking Tobacco: Never Passive Smoke Exposure: Never Smokeless Tobacco: Never Alcohol Use Standard Drinks/Week Comments Not Currently 0 (1 standard drink = 0.6 oz pur e alcohol) [facility] Utilities Answer Date Recorded In the past [...] any time in the past 12 m [facility], were you homeless or living in a halfway (including now)? No 08/29/2024 Area Deprivation Index Answer Date Wilfred rded National Score (1-100), lower number is lower ri sk 84 07/17/2024 State Score (1-10), lower number is lower risk 8 07/17/2024 Data from: https://www.neighborhoodatlas.medicine.[facility].edu/. Last address used for calculation [address] [...] 07/07/2025 7:40 AM EDT [facility] [address] [place] [address] Kathy Bravo MD [address] [place] [address] Sept 16 740 virtual documented as of this encounter Visit Diagnoses Not on filedocumented in this encounter Care Teams Glass Blowing Lathe Operator Relationship Specialty Start Date End Date Meg Lynn APRN.IT PROGRAMMER ANALYST [address] [place] [address] PCP - General Family Medicine 08/15/24 Wesly Davies MD [address] [place] [address] Referring Gastroenterology 07/16/24 Wesly Davies MD [address] [place], [place] [address] Referring Gastroenterology 07/25/24 documented as of this encounter
--- OUTSIDE RECORDS SUMMARY | 2025-04-20 14:24 | XMS_ITS | Encounter Summary ---
Author Organization [facility] Address [address] [place] [address] Care Team Providers Care Avionics Installer Name Role Phone Wesly Davies MD Unavailable [phone] Wesly Davies MD Unavailable [phone] Meg Lynn APRN.[facility] Primary Care Provider Source Comments In the event this information is protected by the Federal Confidentiality of Alcohol and Drug AbusePatient Records regulations: The Federal rules restrict any use of the information to criminally investigate or prosecute any alcohol or drug abuse patient.[facility] Encounter Details Date Type Department Care Team (Late st Contact Info) Description 10/31/2024 Patient Msg Endocrinology [address] [place] [address] Kathy Bravo MD [address] [place] [address] Appointment Social History Tobacco Use Types Packs/Day Years Used Date Smoking Tobacco: Never Passive Smoke Exposure: Never Smokeless Tobacco: Never Alcohol Use Standard Drinks/Week Comments Not Currently 0 (1 standard drink = 0.6 oz pur e alcohol) [facility] Utilities Answer Date Recorded In the past [...] is lower risk 8 07/17/2024 Data from: https://www.neighborhoodatlas.medicine.[facility].edu/. Last address used for calculation [address] [...] 07/07/2025 7:40 AM EDT [facility] [address] [place] [address] Kathy Bravo MD [address] [place] [address] Sept 16 740 virtual documented as of this encounter Visit Diagnoses Not on filedocumented in this encounter Care Teams Avionics Installer Relationship Specialty Start Date End Date Meg Lynn APRN.RUNWAY MODEL [address] [place] [address] PCP - General Family Medicine 08/15/24 Wesly Davies MD [address], [place] [id number] Referring Gastroenterology 07/16/24 Wesly Davies MD [address] [place], [place] [id number] Referring Gastroenterology 07/25/24 documented as of this encounter
--- OUTSIDE RECORDS SUMMARY | 2025-04-20 14:24 | XMS_ITS | Clinical Summary ---
Author Organization [facility] Address [address] [place] [address] Care Team Providers Care Well Puller Name Role Phone Unavailable Primary Care Provider [...]
--- OUTSIDE RECORDS SUMMARY | 2025-04-20 14:24 | XMS_ITS | Encounter Summary ---
Author Organization [facility] Address [address] [place] [address] Care Team Providers Care Street Light Servicer Supervisor Name Role Phone Meg Lynn APRN, CNP Primary Care Provid er Encounter Details Date Type Department Care Team (Late st Contact Info) Description 04/02/2025 [facility] [place] [address] [place] [address] Meg Lynn APRN - CNP [address] [place] [address] Social History Tobacco Use Types Packs/Day Years Used Date Smoking Tobacco: Never Smokeless Tobacco: Never Alcohol Use Standard Drinks/Week Comments Not Currently 0 (1 standard drink = 0.6 oz pur e alcohol) on occasion [facility] Utilities Answer Date Recorded In the past 12 months has [employer], gas, oil, or water company threatened to [...] place to sleep or slept in a mcfp (including now)? No 02/07/2024 Housing Stability Vital Sign Answer Erik e Recorded In the last 12 months, was t here a time when you were not able to pay the mortgage or rent on time? No 12/15/2024 In the past 12 months, how m any times have you moved where you were living? 0 12/15/2024 At any time in the past 12 m [facility], were you homeless or living in a mcfp (including now)? No 12/15/2024 Food Insecurity Answer [...] Upcoming Encounters Date Type Department Care Team ([facility] st Contact Info) Description 08/20/2025 11:00 AM EDT Office Visit [facility] UROLOGY Part of [address] [address] Parvez Chatterjee MD [address] [place] [address], [address] [address] one year PSA documented as of this encounter Goals Goal Patient Goal Type Associated Problems Recent Progress Patient-Stated? 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 documented as of this encounter Visit Diagnoses Not on filedocumented in this encounter Additional Health Concerns Assessment Noted Time A fall risk assessment has been complete d for the patient 06/18/2024 2:06 PM EDT documented as of this encounter Care Teams Street Light Servicer Supervisor Relationship Specialty Start Date End Date Meg Lynn, NATE - SUPERVISOR ALUMINUM BOAT ASSEMBLY [address] [place], [place] [phone] PCP - General Certified Nurse Practitioner 04/23/23 documented as of this encounter
--- OUTSIDE RECORDS SUMMARY | 2025-04-20 14:24 | XMS_ITS | Encounter Summary ---
Author Organization [facility] Address [address] [place] [address] Care Team Providers Care Ultrasonic Welding Machine Operator Name Role Phone Wesly Davies MD Unavailable [phone] Wesly Davies MD Unavailable [phone] Meg Lynn APRN.[facility] Primary Care Provider Source Comments In the event this information is protected by the Federal Confidentiality of Alcohol and Drug AbusePatient Records regulations: The Federal rules restrict any use of the information to criminally investigate or prosecute any alcohol or drug abuse patient.[facility] Encounter Details Date Type Department Care Team (Late st Contact Info) Description 02/18/2025 Get Medical Advice Endocrinology [address] [place] [address] Kathy Bravo MD [address] [place] [address] Group critical illness claim form Social History Tobacco Use Types Packs/Day Years Used Date Smoking Tobacco: Never Passive Smoke Exposure: Never Smokeless Tobacco: Never Alcohol Use Standard Drinks/Week Comments Not Currently 0 (1 standard drink = 0.6 oz pur e alcohol) [facility] Utilities Answer Date Recorded In the past 12 months has th e electric, gas, oil, or water [employer] threatened to shut off services in your [...] any time in the past 12 m [facility], were you homeless or living in a penitentiary (including now)? No 08/29/2024 Area Deprivation Index Answer Date Wilfred rded National Score (1-100), lower number is lower ri sk 84 01/23/2025 State Score (1-10), lower number is lower risk 8 01/23/2025 Data from: https://www.neighborhoodatlas.medicine.[facility].edu/. Last address used for calculation [...] 07/07/2025 7:40 AM EDT [facility] [address] [place] [address] Kathy Bravo MD [address] [place] [address] Sept 16 740 virtual documented as of this encounter Visit Diagnoses Not on filedocumented in this encounter Care Teams Ultrasonic Welding Machine Operator Relationship Specialty Start Date End Date Meg Lynn APRN.STORE ASSISTANT [address] [place] [address] PCP - General Family Medicine 08/15/24 Wesly Davies MD [address], [place] [id number] Referring Gastroenterology 07/16/24 Wesly Davies MD [address], [place] [id number] Referring Gastroenterology 07/25/24 documented as of this encounter
--- OUTSIDE RECORDS SUMMARY | 2025-04-20 14:24 | XMS_ITS | Encounter Summary ---
Author Organization [facility] Address [address] [place] [address] Care Team Providers Care Train Control Electronic Technician Name Role Phone Wesly Davies MD Unavailable [phone] Wesly Davies MD Unavailable [phone] Meg Lynn APRN.[facility] Primary Care Provider Source Comments In the event this information is protected by the Federal Confidentiality of Alcohol and Drug AbusePatient Records regulations: The Federal rules restrict any use of the information to criminally investigate or prosecute any alcohol or drug abuse patient.[facility] Encounter Details Date Type Department Care Team (Late st Contact Info) Description 10/28/2024 Patient Msg Diabetic Education Main X[address] [place] [address] Dario Hines, [facility] [address] [place] [address] Pump Class Social History Tobacco Use Types Packs/Day Years Used Date Smoking Tobacco: Never Passive Smoke Exposure: Never Smokeless Tobacco: Never Alcohol Use Standard Drinks/Week Comments Not Currently 0 (1 standard drink = 0.6 oz pur e alcohol) [facility] Utilities Answer Date Recorded In the [...] any time in the past 12 m [facility], were you homeless or living in a long-term (including now)? No 08/29/2024 Area Deprivation Index Answer Date Wilfred rded National Score (1-100), lower number is lower ri sk 84 07/17/2024 State Score (1-10), lower number is lower risk 8 07/17/2024 Data from: https://www.neighborhoodatlas.medicine.[facility].edu/. Last address used for calculation [...] 07/07/2025 7:40 AM EDT [facility] [address] [place], [place] [address] Kathy Bravo MD [address] [place] [address] Sept 16 740 virtual documented as of this encounter Visit Diagnoses Not on filedocumented in this encounter Care Teams Train Control Electronic Technician Relationship Specialty Start Date End Date Meg Lynn APRN.PRIVATE EQUITY ASSOCIATE [address] [place] [address] PCP - General Family Medicine 08/15/24 Wesly Davies MD [address], [place] [id number] Referring Gastroenterology 07/16/24 Wesly Davies MD [address], [place] [address] Referring Gastroenterology 07/25/24 documented as of this encounter
--- OUTSIDE RECORDS SUMMARY | 2025-04-20 14:24 | XMS_ITS | Encounter Summary ---
Author Organization [facility] Address [facility] [place] [address] Care Team Providers Care Clinical Editor Name Role Phone Wesly Davies MD Unavailable [phone] Wesly Davies MD Unavailable [phone] Meg Lynn APRN.[facility] Primary Care Provider Source Comments In the event this information is protected by the Federal Confidentiality of Alcohol and Drug AbusePatient Records regulations: The Federal rules restrict any use of the information to criminally investigate or prosecute any alcohol or drug abuse patient.[facility] Encounter Details Date Type Department Care Team (Late st Contact Info) Description 01/28/2025 Patient Msg Gastroenterology [address] [address] Dariusz Pratt MD [address] [place] [address] EGD Social History Tobacco Use Types Packs/Day Years Used Date Smoking Tobacco: Never Passive Smoke Exposure: Never Smokeless Tobacco: Never Alcohol Use Standard Drinks/Week Comments Not Currently 0 (1 standard drink = 0.6 oz pur e alcohol) [facility] Utilities Answer Date Recorded In the past 12 months has th e electric, gas, oil, or water [employer] threatened to shut off services in your [...] any time in the past 12 m [facility], were you homeless or living in a alf (including now)? No 08/29/2024 Area Deprivation Index Answer Date Wilfred rded National Score (1-100), lower number is lower ri sk 84 01/23/2025 State Score (1-10), lower number is lower risk 8 01/23/2025 Data from: https://www.neighborhoodatlas.medicine.[facility].edu/. Last address used for calculation [address] [...] 07/07/2025 7:40 AM EDT [facility] [address] [place], [place] [address] Kathy Bravo MD [address] [place] [address] Jun 16 740 virtual documented as of this encounter Visit Diagnoses Not on filedocumented in this encounter Care Teams Clinical Editor Relationship Specialty Start Date End Date Meg Lynn APRN.PLAYERS CLUB REPRESENTATIVE [address] [place] [address] PCP - General Family Medicine 08/15/24 Wesly Davies MD [address], [place] [phone] Referring Gastroenterology 07/16/24 Wesly Davies MD [address], [place] [id number] Referring Gastroenterology 07/25/24 documented as of this encounter
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
--- OUTSIDE RECORDS SUMMARY | 2025-04-20 14:25 | XMS_ITS | Clinical Summary ---
Author Organization [facility] Address [address] [place], [place] [address] Care Team Providers Care Senior Care Assistant Name Role Phone Wesly Davies MD Unavailable [phone] Wesly Davies MD Unavailable [phone] Meg Lynn APRN.PRE OWNED SALES CONSULTANT Primary Care Provider Allergies Active Allergy Reactions [...] PRN, # 1 EA, 0 Refill(s), Pharmacy: [facility] [address] [facility]. 4 Active amitriptyline (ELAVIL) 50 mg tablet Take 1 tablet by mouth daily at bedtime. 8 Active amLODIPine (NORVASC) 2.5 mg tablet Take 1 tablet by mouth once daily. 2 Active atorvastatin (LIPITOR) 40 mg tablet Take 1 tablet by mouth once daily. 1 Active azelastine 0.1% nasal spray Use 1 [place] in each nostril two times a day. [...] needed. 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 03/31/2025 5:00 PM EDT [facility] Endocrinology [address] [place] [address] Kathy Bravo MD Post-pancreatectomy diabetes (HCC) (Primary Dx); Insulin pump status 03/31/2025 Travel 03/31/2025 Telephone Endocrinology [address] [place] [address] Kathy Bravo MD Appointment 03/18/2025 Telephone [address]ocr[address] [place] [address] Kathy Bravo MD Request For Clinical Notes 03/04/2025 Telephone Endocrinology [address] [place] [address] Kathy Bravo MD Forms 02/18/2025 Get Medical Advice Endocrinology [address] [place] [address] Kathy Bravo MD Group critical illness claim form 02/17/2025 Refill Endocrinology [address] [place] [address] Kathy Bravo MD Refill Request 02/11/2025 Get Medical Advice General Surgery [address] [address] Jesus Jacobson MD Results of EGD 01/28/2025 Patient [facility] [address] [address] Dariusz Pratt MD EGD 01/28/2025 Results Follow-Up Gastroenterology [address] [address] Dariusz Pratt MD 01/23/2025 3:17 PM EDT Anesthesia Event Gastroenterology [address] [address] Solo Guzman MD 01/23/2025 2:44 PM EDT - 01/23/2025 11:59 PM EDT Hospital Encounter Gastroenterology [address] [id number] Dariusz Pratt MD IPMN (intraductal papillary mucinous neoplasm) [D49.0] Discharge Disposition: Home 01/22/2025 Get Medical Advice Endocrinology [address] [id number] Kathy Bravo MD EGD on SundayJanuary 23 from Last 3 Months Immunizations Immunization Administration [...] drink = 0.6 oz pur e alcohol) [facility] Utilities Answer Date Recorded In the past 12 months has th e [employer], gas, oil, or water [employer] threatened to shut off services in your [...] any time in the past 12 m [facility], were you homeless or living in a long term (including now)? No 08/29/2024 Area Deprivation Index Answer Date Wilfred rded National Score (1-100), lower number is lower ri sk 84 01/23/2025 State Score (1-10), lower number is lower risk 8 01/23/2025 Data from: https://www.neighborhoodatlas.medicine.[facility].edu/. Last address used for calculation [address] [...] 07/07/2025 7:40 AM EDT [facility] [address] [place] [address] Kathy Bravo MD [address] [place], [place] [address] Sept 16 740 virtual Health Maintenance Due Date Last [...] history exists Medical Devices Implanted Type Area Assistant Professor Surgical Technology Device Identifier Shelf Expiration Date Model / [...] mucinous neoplasm) Family history of Dong's esophagus from Last 3 Months Results * EGD DIAGNOSTIC (01/23/2025 3:48 PM EDT) Anatomical Region Laterality Modality Other 01/23/2025 3:08 PM EDT Narrative 01/23/2025 3:45 PM EDT Q3 Patient Name: Thomas Petty Procedure Date: 01/23/2025 3:08 PM Date of : 1970 Admit Type: Outpatient Age: 54 Gender: Male Note Status: Finalized Attending MD: Dariusz Pratt MD, [id number] Procedure: Upper GI endoscopy Indications: Epigastric abdominal [...] changes classified as Dong's stage C3-M5 per Calhoun criteria present in the lower third of [...] changes classified as Dong's stage C3-M5 per Calhoun criteria. Biopsied. - Bile gastritis, characterized by erythema. Biopsied. Estimated Blood Loss: Estimated blood loss: none. Recommendation: - Await pathology results. - Patient has a contact number available for emergencies. The signs and symptoms of potential delayed complications were discussed with the patient. Return to normal activities tomorrow. Written discharge instructions were provided to the patient. Procedure Code(s): --- Professional --- 69327 Diagnosis Code(s): --- Professional --- K22.70 K29.60 Z90.411 Z90.49 R10.13 CPT copyright 2020 [employer]. All rights reserved. Attending Participation: I personally performed the entire procedure. Scope In: 3:27:59 PM Scope Out: 3:39:36 PM MD Dariusz Josue MD 01/23/2025 3:43:43 PM This report has been signed electronically by Dariusz Pratt MD Number of Addenda: 0 Note Initiated On: 01/23/2025 3:08 PM R Alessandro Jacobson MD DIGESTIVE DISEASE Final Resul t * SURGICAL PATHOLOGY (01/23/2025 3:29 PM EDT) Case Report Surgical Pathology Report Case: [id number] Authorizing Provider: Dariusz Pratt MD Collected: 01/23/2025 03:29 PM Ordering Location: Gastroenterology Received: 01/23/2025 05:59 PM Pathologist: Parvez Chaidez MD Specimens: A) - Stomach, Biopsy B) - Esophagus, Biopsy, biopsy at 34 cm C) - Esophagus, Biopsy, biopsy at 32cm 01/27/2025 2:42 PM EDT [facility] FINAL DIAGNOSIS A. Stomach, biopsy: - Antral and fundic mucosa with chronic inactive gastritis; see comment. B. 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 C. Esophagus at 32 cm, biopsy: - Dong's esophagus, negative for dysplasia. 01/27/2025 2:42 PM EDT [facility] at 1129 EDT Diagnosis Comment H. pylori immunostain is pending on the stomach biopsy. 01/27/2025 2:42 PM EDT [facility] Gross Description A. Stomach, Biopsy [...] 2025 7:53 PM Gross examination performed at [facility], [address] [place] [address] 01/27/2025 2:[address] [facility] Performing Lab Diagnostic interpretation performed at: [facility], [address] [place], [place] [address]IA# [id number] Transformer Assembler: Whitney Leonardo MD 01/27/2025 2:42 PM EDT [facility] Addendum H. pylori immunostain performed on the stomach biopsy (part a) to evaluate th chronic gastris is negative for organisms. Laboratory Developed Test (LDT) Disclaimer: Performance characteristics of immunohistochemical , immunofluorescent and chromogenic in-situ hybridization tests have been determined by the performing laboratory within [facility] s Solo Stephanie [facility] Pathology and Laboratory Medicine Department ([facility], [facility], [facility], [facility], [facility], [facility], or [facility]) in a manner consistent with CLIA requirements. One or more of these tests have not been cleared or approved by the FDA. [facility] is regulated under CLIA as qualified to perform high-complexity testing. These tests are used for clinical purposes. They should not be regarded as investigational or for research. Positive and negative controls stain appropriately. 01/27/2025 2:42 PM EDT [facility] Addendum electronically signed by Parvez Chaidez MD on 01/27/2025 at 1442 EDT Disclaimer Laboratory Developed Test (LDT) Disclaimer: Performance characteristics of immunohistochemical , immunofluorescent, and chromogenic in-situ hybridization tests have been determined by the performing laboratory within [facility]'s [facility] Pathology and Laboratory Medicine Department ([facility], [facility], [facility], [facility], [facility], [facility], or [facility]) in a manner consistent with CLIA requirements. One or more of these tests may not have been cleared or approved by the FDA. [facility] is regulated under CLIA as qualified to perform high-complexity testing. These tests are used for clinical purposes. These should not be regarded as investigational or for research. Positive and negative controls stain appropriately. 01/27/2025 2:[address] [facility] Tissue BIOPSY OF STOMACH [...] SURGICAL PATHOLOGY Edited Res ult - Final [facility] [address] [id number], [facility] [address] [facility] [place] [address], from Last 3 Months Insurance [facility] DUAL COMPLETE HMO POS [place] Care Teams Senior Care Assistant Relationship Specialty Start Date End Date Meg Lynn, OPTICAL GLASS ETCHER.PRE OWNED SALES CONSULTANT [address] [place] [address] PCP - General Family Medicine 08/15/24 Wesly Davies MD [address], [place] [id number] Referring Gastroenterology 07/16/24 Wesly Davies MD [address], [place] [address] Referring Gastroenterology 07/25/24
--- NOTE | 2025-04-20 15:57 | PM.CN ---
Consult Note: HPI Data of Consult Patient: known to practice within the last 3 years Consult date: 04/20/25 Requesting Physician: Danica Conklin MD Primary Care Provider: Meg Lynn Consult Narrative Reason for consult: bilateral knee pain Narrative: 54yom who presents for in office injection. continues to have bilateral knee pain. cc:: CC: Danica Conklin MD Review of Systems ROS Status of ROS 10 or more systems reviewed and unremarkable except as noted in history and below PFSH PFSH Medical History Pancreatic cancer ?C25.9 - Malignant neoplasm of pancreas, unspecified (ICD-10) Diabetes ?E11.9 - Type 2 diabetes mellitus without complications (ICD-10) High cholesterol ?E78.00 - Pure hypercholesterolemia, unspecified (ICD-10) Surgical History History of back surgery ?Z98.890 - Other specified postprocedural states (ICD-10) Hx of cholecystectomy ?Z90.49 - Acquired absence of other specified parts of digestive tract (ICD-10) Status post insertion of spinal cord stimulator ?Z96.89 - Presence of other specified functional implants (ICD-10) History of kyphoplasty ?Z98.890 - Other specified postprocedural states (ICD-10) History of splenectomy ?Z90.81 - Acquired absence of spleen (ICD-10) 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 (ICD-10) Meds Home Medications and Allergies Home Medications ?Medication ?Instructions ?Recorded ?Confirmed ?Type amitriptyline 50 mg tablet 50 mg PO DAILY 04/14/24 12/22/24 History amlodipine 2.5 mg tablet 2.5 mg PO DAILY 04/14/24 12/22/24 History atorvastatin 40 mg tablet 40 mg PO DAILY 04/14/24 12/22/24 History cholecalciferol (vitamin D3) 50 5,000 unit PO DAILY 04/14/24 12/22/24 History mcg (2,000 unit) capsule (D3-2000) fenofibrate 54 mg tablet 54 mg PO DAILY 04/14/24 12/22/24 History ferrous sulfate 325 mg (65 mg 325 mg PO DAILY 04/14/24 12/22/24 History iron) tablet (Feosol) fexofenadine 180 mg tablet 180 mg PO DAILY 04/14/24 12/22/24 History yzggdc-ayydxkye-gattwck 1 cap PO TID 04/14/24 12/22/24 History 36,000-114,000-180,000 unit capsule,delay rel (Creon) mepolizumab 100 mg/mL subcutaneous mg subcut .MONTHLY 04/14/24 History syringe (Nucala) montelukast 10 mg tablet 10 mg PO DAILY 04/14/24 12/22/24 History omeprazole 40 mg capsule,delayed 40 mg PO DAILY 04/14/24 12/22/24 History release prazosin 1 mg capsule 1 mg PO DAILY 04/14/24 12/22/24 History vitamin B complex (Vitamins B 1 cap PO DAILY 04/14/24 12/22/24 History Complex capsule) ziprasidone HCl 40 mg capsule 40 mg PO .QD 04/14/24 12/22/24 History fluticasone furoate 50 inhalation 11/24/24 History mcg-vilanterol 25 mcg/dose inhalation powder (Breo Ellipta) tramadol 100 mg tablet,extended 100 mg PO DAILY #30 tabs 04/02/25 Rx release 24 hr tramadol 50 mg tablet 100 mg (2 x 50 mg) PO BID PRN pain 04/02/25 Rx #120 tabs Allergies Allergy/AdvReac Type Severity Reaction Status Date / Time codeine Allergy Mild Hives Verified 12/22/24 09:49 ibuprofen Allergy Mild Hives Verified 12/22/24 09:49 ondansetron (From Zofran) Allergy Mild Hives Verified 12/22/24 09:49 naproxen (From Aleve) AdvReac Mild Vomiting Verified 12/22/24 09:49 Exam Narrative Exam Narrative: Psych-alert and oriented x 3.? Attentive and appropriate, constitutionally normal, displays normal mood and affect per situation.? There are no obvious deficits in memory, reasoning, or intellect. Extremities-lower extremities are warm with minimal edema and palpable pulses. Knee-examination of the bilateral knee reveals tenderness to palpation over the superior, inferior, lateral, and medial aspect of the knee.? Some swelling is noted without erythema. Pain is elicited with flexion and extension of the knee both actively and passively.? Some grinding is noted with these motions.? There is no notable ligamental laxity or instability.? Coordination remains intact.? Gait remains antalgic. Assessment and Plan Assessment and Plan (1) Bilateral primary osteoarthritis of knee: (2) Bilateral knee pain: Qualifiers: Chronicity: chronic Qualified Code(s): M25.561 - Pain in right knee; M25.562 - Pain in left knee; G89.29 - Other chronic pain Plan 54yom who presents for in office injection. continues to have bilateral knee pain, so will proceed with injection. follow up in 3 months. procedure: bilateral knee injection medications: bupivacaine 0.25% 3cc, depomedrol 40mg x2 I explained the details of the procedure to the patient including the risks, benefits and alternatives. We had an informed discussion and the patient verbalized understanding and signed the consent form. All questions were answered appropriately.? A time out was performed.? After obtaining a comfortable seated position, the right knee was prepped with alcohol x3. A syringe containing the above medication was attached to a 25 gauge, 1.5 inch needle under strict aseptic technique. The lateral tibial plateau was palpated.? The needle was then advanced through the subcutaneous tissue in a medial and superior direction towards the joint space.? The contents of the syringe were gently injected without any resistance. The needle was removed and pressure was applied to the injection site to decrease the incidence of ecchymosis and hematoma formation.? A sterile bandage was applied. The same procedure was then completed on the opposite side.
== END 2025-04-20 14:20 | disposition home or self-care (01) ==
LOC: PM 14:20
PROVIDERS: PCP Nurse Practitioner Family; Visit Provider Anesthesiology
DX: M25.561 Pain in right knee (principal); M25.562 Pain in left knee; G89.29 Other chronic pain
CPT/HCPCS: 20610; J0665; J1010

== ENCOUNTER 2025-07-09 10:46 | Outpatient (OUT) | payer MEDICARE, MEDICAID, SELFPAY ==
--- OUTSIDE RECORDS SUMMARY | 2025-07-09 11:05 | XMS_ITS | CCD ---
Author Organization [facility] Care Team Providers Care [employer] Name Role Phone LILLIAN REID Primary Care Unavailable JEANETTE, LILLIAN Primary Care Unavailable JEANETTE, LILLIAN Primary Care Unavailable JEANETTE, LILLIAN Primary Care Unavailable JEANETTE, LILLIAN Primary Care Unavailable JEANETTE, LILLIAN Primary Care Unavailable JEANETTE, LILLIAN Primary Care Unavailable JEANETTE, LILLIAN Primary Care Unavailable JEANETTE, LILLIAN Primary Care Unavailable JEANETTE, LILLIAN Primary Care Unavailable JEANETTE, LILLIAN Primary Care Unavailable JEANETTE, LILLIAN Primary Care Unavailable JEANETTE, LILLIAN Primary Care Unavailable Gian STONEHAND - Eliana MUSTAFA Primary Care Provid er MOGHAL, JOANA N Attending Unavailable GIAN, ELIANA Palomo Referring Unavailable GIAN, ELIANA Palomo Primary Care Unavailable MOGHAL, JOANA N Admitting Unavailable MOGHAL, JOANA N Attending Unavailable MOGHAL, JOANA N Referring Unavailable GIAN, ELIANA L Primary Care Unavailable MOGHAL, JOANA N Attending Unavailable MOGHAL, JONAA N Referring Unavailable GIAN, ELIANA Palomo Primary Care Unavailable MIGDALIA ART Attending Unavailable GIAN, ELIANA Palomo Primary Care Unavailable MOGHAL, JOANA N Attending Unavailable GIAN, ELIANA L Referring Unavailable GIAN, ELIANA Palomo Primary Care Unavailable MOGHAL, JOANA N Attending Unavailable MOGHAL, JOANA N Referring Unavailable GIAN, ELIANA Palomo Primary Care Unavailable SLIME ROMANO Attending Unavailable GIAN, ELIANA Palomo Referring Unavailable GIAN, ELIANA Palomo Primary Care Unavailable SLIME ROMANO Attending Unavailable GIAN, ELIANA Palomo Referring [...] Unavailable GIAN, ELIANA Palomo Primary Care Unavailable SLIME ROMANO Referring Unavailable GIAN, ELIANA Palomo Primary Care Unavailable ANNALISELAURI Ring Admitting Unavailable ANNALISE, LAURI Romero Attending Unavailable REF PROV, NOT IN SYSTEM Referring Unavaila ble GIAN, ELIANA Palomo Primary Care Unavailable BASISTA, LAURI H Consulting Unavailable GIAN, ELIANA Palomo Referring Unavailable GIAN, ELIANA Palomo Primary Care Unavailable Cristal Paul Attending Unavailable NALUIS F PEDRAZA Admitting Unavailable NALUIS F PEDRAZA Attending Unavailable WESLY DAVIES Referring Unavailable Gian STONEHAND - PAPER AND PULP MILL WORKER, Eliana Palomo Primary Care Provid er Samson REARDON, Wesly Crawford Unavailable [phone] Samson REARDON, Wesly Crawford Unavailable Gian STONEHAND.PAPER AND PULP MILL WORKER, Eliana Primary Care Provider Gian STONEHAND-PAPER AND PULP MILL WORKER, [facility] Primary Care Provider ELIEL STEPHENS Attending Unavailable GIAN, ELIANA Palomo Primary Care Unavailable Jm REARDON, Jacqueline Ruiz Attending Marnie Schultz MD, Benoit Nagy Consulting Unavacurly chilel Gian STONEHAND-PAPER AND PULP MILL WORKER, [facility] Primary Care Unava ilnestor Schilling MD, Adelina Consulting Unavailable Wesly Davies Attending Unavailable Gian STONEHAND-PAPER AND PULP MILL WORKER, [facility] Primary Care Unava ilable Gian STONEHAND-PAPER AND PULP MILL WORKER, [facility] Primary Care Unava ilable Rubin REARDON, Danica Arnold Attending Unavailable Rubin REARDON, Danica Arnold Attending Unavailable Gian STONEHAND-PAPER AND PULP MILL WORKER, [facility] Primary Care Unava ilable Rubin REARDON, Stanfordrius Arnold Attending Unavailable Gian STONEHAND-[facility], [facility] Primary Care Unava ilable Rubin REARDON, Stanfordrius Arnold Attending Unavailable Gian STONEHAND-[facility], [facility] Primary Care Unava ilable Gian STONEHAND-[facility], [facility] Primary Care Unava ilable Rubin REARDON, Danica Arnold Attending Unavailable Mickie REARDON, Rob Villagomez Attending Unavailable Gian STONEHAND-PAPER AND PULP MILL WORKER, Eliana Palomo Primary Care Unava ilable Gian STONEHAND-PAPER AND PULP MILL WORKER, Eliana L Primary Care Unava joriable Wesly Davies Attending Unavailable CANDIDO ALEGRE Admitting Unavailable CANDIDO ALEGRE Attending Unavailable LUIS HAYES Referring Unavailable GIAN, ELIANA Palomo Primary Care Unavailable BLU ROONEY Consulting Unavailable Gian STONEHAND.PAPER AND PULP MILL WORKER, Eliana Stacia Primary Care Provider GIAN, ELIANA L Referring Unavailable GIAN, ELIANA L Primary Care Unavailable GIAN, ELIANA L Primary Care Unavailable DARIUSZ LAMBERT Attending Unavailable GIAN, ELIANA L Primary Care Unavailable GIAN, ELIANA L Referring Unavailable FARIDA GIBBONS Attending Unavailable GIAN, ELIANA L Primary Care Unavailable GIAN, ELIANA Palomo Primary Care Unavailable DMITRY TIERNEY Attending Unavailable DMITRY TIERNEY Attending Unavailable GIAN, ELIANA L Primary Care Unavailable GIAN, ELIANA L Primary Care Unavailable GIAN, ELIANA L Referring Unavailable GIAN, ELIANA L Primary Care Unavailable GIAN, ELIANA L Primary Care Unavailable ANN DUMONT Referring Unavailable GIAN, ELIANA L Primary Care Unavailable GIAN, ELIANA L Referring Unavailable GIAN, ELIANA L Primary Care Unavailable GIAN, ELIANA L Referring Unavailable GIAN, ELIANA L Primary Care Unavailable OCTAVIO CHATTERJEE Referring Unavailable GIAN, ELIANA L Referring Unavailable GIAN, ELIANA L Primary Care Unavailable GIAN, ELIANA L Referring Unavailable GIAN, ELIANA L Primary Care Unavailable IRVIN OBRIEN Admitting Unavailable IRVIN OBRIEN Attending Unavailable GIAN, ELIANA Palomo Primary Care Unavailable SHAHNAZ TOSCANO Consulting Unavailable GIAN, ELIANA L Primary Care Unavailable JOYCELYN SMITH Attending Unavailable ROHIT MILLER Attending Unavailable GIAN, ELIANA L Primary Care Unavailable GIAN, ELIANA L Primary Care Unavailable GIAN, ELIANA L Primary Care Unavailable GIAN, ELIANA L Primary Care Unavailable JACOBSON, R KASSIDY Referring Unavailable GIAN, ELIANA L Primary Care Unavailable JACOBSON, R KASSIDY Referring Unavailable JHONATAN SUAREZ Attending Unavaila KATHY Burrell Attending Unavailable GIAN, ELIANA L Primary Care Unavailable JACOBSON, R KASSIDY Referring Unavailable JACOBSON, R KASSIDY Attending Unavailable JACOBSON, R KASSIDY Admitting Unavailable GIAN, ELIANA L Primary Care Unavailable MODESTO DUNLAP Referring Unavailable KATHY BRAVO Attending Unavailable STEF, Jesus YI Attending Unavailable GIAN, ELIANA L Primary Care Unavailable JACOBSON, R KASSIDY Referring Unavailable GIAN, ELIANA L Primary Care Unavailable JACOBSON, R KASSIDY Referring Unavailable REMY FEGRUSON Attending Unavailabl e GIAN, ELIANA L Primary Care Unavailable GIAN, ELIANA L Primary Care Unavailable JACOBSON, R KASSIDY Referring Unavailable ZAIRA STEWART Attending Unavailable GIAN, ELIANA L Primary Care Unavailable KATHY BRAVO Attending Unavailable GIAN, ELIANA Palomo Primary Care Unavailable MODESTO DUNLAP Referring Unavailable JACOBSON, R KASSIDY Attending Unavailable GIAN, ELIANA L Primary Care Unavailable JACOBSON, R KASSIDY Referring Unavailable GIAN, ELIANA L Primary Care Unavailable JACOBSON, R KASSIDY Referring Unavailable GIAN, ELIANA L Primary Care Unavailable JACOBSON, R KASSIDY Referring Unavailable GIAN, ELIANA L Primary Care Unavailable KATHY BRAVO Attending Unavailable GIAN, ELIANA Stacia Primary Care Unavailable KATHY BRAVO Attending Unavailable GIAN, ELIANA Palomo Primary Care Unavailable JACOBSON, R KASSIDY Attending Unavailable GIAN, ELIANA Palomo Primary Care Unavailable BETTY DIANA Attending Unavailable JACOBSON, R KASSIDY Referring Unavailable KATHY BRAVO Attending Unavailable GIAN, ELIANA Palomo Primary Care Unavailable Allergies Allergy Classification Reported Allergen(s) Allergy Type Date of Onset Reaction(s) Facility Acetaminophen / Codeine (2 sources) Acetaminophen / Codeine Drug Allergy 4 Hives [facility] Cat Hair Extract (2 sources) Cat Hair Extract Drug Allergy 0 [facility] Work Phone: NSAIDs (2 sources) Ibuprofen Drug Allergy 4 Diarrhea [facility] Ondansetron (2 sources) Ondansetron Drug Allergy 9 Anaphylaxis [facility] Opioid Agonists (2 sources) Codeine Drug Allergy 8 Hives, Nausea And Vomiting [facility] Work Phone: (20 sources) Cat Hair Extract Drug Allergy 0 [facility] Work Phone: (20 sources) Codeine; Translations: [CODEINE] Drug Allergy 8 Hives, Nausea And Vomiting [facility] Work Phone: (20 sources) Ondansetron; Translations: [ONDANSETRON HCL] Drug Allergy 9 Nausea Only, Anaphylaxis [facility] (20 sources) Acetaminophen / Codeine; Translations: [ACETAMINOPHEN-CO DEINE] Drug Allergy 4 Hives, Other (See Comments) [facility] (20 sources) Ibuprofen; Translations: [IBUPROFEN] Drug Allergy 4 Diarrhea, Other (See Comments) [facility] Rep[facility] (20 sources) Ondansetron; Translations: [ONDANSETRON] Drug Allergy 1 Hives [facility] Repository (1 source) Cat; Translations: [Cats] Propensity to adverse reactions (disorder) [facility] Repository (1 source) Ondansetron; Translations: [Zofran] Drug Allergy [facility] Repository Medications Current Medications Medication Drug Class(es) Dates Sig (Normalized) Sig (Original) Acetaminophen (20 sources) Start: 05-26-2025 acetaminophen (TYLENOL) tablet 650 mg Start: 02-24-2025 End: 02-24-2025 take 4000 mg by mouth every twenty-four hours 650 mg, Oral, ONCE, 1 dose, On Sun02/24/25 at 1245, Maximum dose of acetaminophen is 4000 mg from all sources in 24 hours. Start: 09-05-2024 End: 09-05-2024 take 4000 mg by mouth every twenty-four hours 650 mg, Oral, ONCE, 1 dose, On Sun09/05/24 at 2145, Maximum dose of acetaminophen is 4000 mg from all sources in 24 hours. Start: 09-04-2024 take 2 tablets by mo [facility] every six hours as needed acetaminophen (TYLENOL) 325 mg tablet Take 2 tablets by mouth every 6 hours as needed for pain. 09/04/2024 Active amLODIPine 2.5 mg oral tablet (20 sources) Dihydropyridine Calcium Channel Kandi Start: 10-31-2021 take 1 tablet by mouth once daily amLODIPine (NORVASC) 2.5 mg tablet Take 1 tablet by mouth once daily. 10/31/2021 Active amoxicillin 875 mg / clavulanate 125 mg oral tablet (4 sources) Penicillin-class Antibacterial Start: 05-27-2025 End: 08-14-2025 take 1 tablet by mouth every twelve hours amoxicillin-clav ulanate (AUGMENTIN) 875-125 MG per tablet Take 1 tablet by mouth every 12 hours for 15 doses 15 tablet 05/27/2025 06/04/2025 Active Start: 01-25-2024 take 1 tablet by rhianna th twice daily amoxicillin-clavulanate (AUGMENTIN) 875-125 MG per tablet Take 1 tablet by mouth 2 times daily 0 01/25/2024 Active atorvastatin 40 mg oral tablet (20 sources) HMG-CoA Reductase Inhibitor Start: 01-03-2021 take 1 tablet by mouth once daily atorvastatin (LIPITOR) 40 mg tablet Take 1 tablet by mouth once daily. 01/03/2021 Active azelastine hydrochloride 0.137 mg/actuat metered dose nasal spray (20 sources) Histamine-1 Receptor Antagonist take 1 spray(s) nasal route twice daily azelastine 0.1% nasal spray Use 1 Gravel Switch in each nostril two times a day. Active b complex vitamins capsule (20 sources) take 1 capsule by mouth once daily b complex vitamins capsule Take 1 capsule by mouth daily Suspended take 1 capsule by mouth once gaudencio [...] morning. Active B-complex with vitamin C tablet (13 sources) take 1 tablet by rhianna th in the morning B-complex with vitamin C tablet Take 1 tablet by mouth in the morning. Suspended take 1 tablet by mouth in the mo rning B-complex with vitamin C tablet Take 1 tablet by mouth in the morning. Active take 1 tablet by mouth in the mo rning B-complex with vitamin C tablet Take 1 tablet by mouth in the morning. 0 Active bisacodyl 10 mg rectal suppository (20 sources) Stimulant Laxative Start: 09-04-2024 bisacodyl ( DULCOLAX) 10 mg supp 1 Suppository by RECTAL route once daily as needed for constipation. 09/04/2024 Active Blood-Glucose Meter (20 sources) Start: 08-22-2024 Blood-Glucose Meter Indications: Post-pancreatectomy diabetes (HCC) Use to check sugars once a day 1 Each 08/22/2024 Suspended Start: 08-22-2024 Blood-Glucose Meter Indications: Post-pancreatectomy diabetes (HCC) Use to check sugars once a day 1 Each 08/22/2024 Active cephalexin 500 mg oral capsule (4 sources) Cephalosporin Antibacterial Start: 12-16-2024 End: 12-26-2024 take 1 capsule by mouth three times daily cephALEXin (KEFLEX) 500 MG capsule Indications: Dysuria Take 1 capsule by mouth 3 times daily for 10 days 30 capsule 12/16/2024 12/26/2024 Active Start: 11-27-2024 End: 12-07-2024 take 1 capsule by mouth three times daily cephALEXin (KEFLEX) 500 MG capsule Indications: Dysuria Take 1 capsule by mouth 3 times daily for 10 days 30 capsule 11/27/2024 12/07/2024 Active cholecalciferol 1.25 mg oral capsule (20 sources) Vitamin D Start: 06-18-2024 Cholecalcifero l (VITAMIN D3) 1.25 MG (56260 UT) CAPS Indications: Other fatigue Take 1 capsule by mouth once a week Patient takes 1 time weekly on Fridays 12 capsule 3 06/18/2024 Active Start: 11-13-2023 cholecalcifero l, Vitamin D3, (VITAMIN D3) 1,250 mcg (50,000 unit) cap capsule Take 50,000 Units by mouth. 11/13/2023 Active Start: 11-13-2023 Cholecalcifero l (VITAMIN D3) 1.25 MG (03813 UT) CAPS Take 1 capsule by mouth once a week Patient takes 1 time weekly on Fridays 12 capsule 3 11/13/2023 Active Cholecalciferol (VITAMIN D3) 1.25 MG (64636 UT) CAPS Take by mouth Patient takes 1 time weekly on Fridays 0 Active clonazePAM 0.5 mg oral tablet (20 sources) Benzodiazepine Start: 05-30-2025 take 1 dose by mouth once 1 mg, Oral, Once, 1 dose, On 05/30/25 at 2330 Start: 05-30-2025 take 1 dose by mouth once 1 mg , Oral, Once, 1 dose, On Sun05/30/25 at 2300 Start: 05-26-2025 take 0.5 mg by mouth once [place] 0.5 mg, Oral, DAILY, First dose on Sun05/26/25 at 0900, Until Discontinued Start: 05-26-2025 take 2 mg by mouth once daily 2 mg, Oral, Nightly, First dose on Sun05/26/25 at 0045, Until Discontinued Start: 05-15-2024 take 1 tablet by rhianna th once daily clonazePAM (KlonoPIN) 1 mg tablet Take 1 tablet (1 mg total) by mouth nightly. 05/15/2024 Active take 1 tablet by rhianna th every twelve hours as needed clonazePAM (KLONOPIN) 0.5 mg tablet Take 0.5 mg by mouth two times a day as needed. Active clonazePAM (KLON OPIN) 1 MG tablet Take 0.5 mg in the morning and 2 mg at bedtime as needed. Active clonazePAM (KLON OPIN) 1 MG tablet 2 tablets at bedtime. Active cyclobenzaprine hydrochloride 5 mg oral tablet (1 source) Muscle Relaxant Start: 12-05-2024 End: 12-15-2024 take 1 tablet by mouth twice daily as needed for muscle spasms cyclobenzaprine (FLEXERIL) 5 MG tablet Take 1 tablet by mouth 2 times daily as needed for Muscle spasms 10 tablet 12/05/2024 12/15/2024 Active dicyclomine hydrochloride 20 mg oral tablet (9 sources) Anticholinergic Start: 04-03-2024 take 1 tablet by mouth three times daily dicyclomine (BENTYL) 20 MG tablet Indications: Diarrhea, unspecified type Take 1 tablet by mouth 3 times daily 30 tablet 04/03/2024 Active ergocalciferol 1.25 mg oral capsule (16 sources) Provitamin D2 Compound Start: 06-17-2023 take 1 capsule by mouth every week vitamin D (ERGOCALCIFEROL) 1.25 MG (04150 UT) CAPS capsule Take 1 capsule by [...] tablet by mouth once daily. 06/28/2022 Active fexofenadine hydrochloride 180 mg oral tablet (20 sources) Histamine-1 Receptor Antagonist Start: 06-18-2024 take 1 tablet by mouth at bedtime fexofenadine (CHAKA) 180 MG tablet Take 1 tablet by mouth at bedtime 90 tablet 1 06/18/2024 Active take 1 tablet by rhianna every twelve hours fexofenadine (CHAKA) 60 mg tablet Take 60 mg by mouth every 12 hours. Active take 1 tablet by mouth at bedtim e fexofenadine (CHAKA) 180 MG tablet Take 1 tablet by mouth at bedtime 0 Active fluticasone propionate 0.093 mg/actuat metered dose nasal spray (20 sources) Corticosteroid Start: 04-16-2024 take 1 puff(s) by inhalation in the morning XHANCE 93 mcg/actuation aerosol breath activated Inhale 1 puff in the morning. 04/16/2024 Active Start: 08-17-2021 XHANCE 93 mcg/ actuation nasal spray Use 93 mcg in the nose two times a day. 08/17/2021 Active 30 actuat fluticasone furoate 0.2 mg/actuat / vilanterol 0.025 mg/actuat dry powder inhaler (20 sources) Corticosteroid, beta2-Adrenergic Agonist Start: 05-06-2024 take 1 puff(s) by inhalation in the morning BREO ELLIPTA 200-25 mcg/dose blister with device Inhale 1 puff in the morning and 1 puff before bedtime. 05/06/2024 Active Start: 01-17-2018 take 1 puff(s) by mo ut once daily fluticasone furoate-vilanterol (BREO ELLIPTA) 200-25 MCG/ACT AEPB inhaler Take 1 puff by mouth daily 01/17/2018 Active Start: 01-17-2018 fluticasone fu roate-vilanterol (BREO ELLIPTA) 200-25 MCG/ACT AEPB inhaler 01/17/2018 Active Start: 01-17-2018 take 1 puff(s) by in halation once daily fluticasone-vilanterol (BREO ELLIPTA) 100-25 MCG/INH AEPB inhaler 1 puffs, Inhale, Daily, # 30 EA, 11 Refill(s), Pharmacy: [place] [id number] 01/17/2018 Active fluticasone-jose nterol (BREO ELLIPTA) 200-25 mcg/dose inhaler Inhale 1 Inhalation as instructed once daily. Active glucagon (rdna) 1 mg injection (20 sources) Antihypoglycemic Agent Start: 05-26-2025 1 mg, S ubCUTAneous, PRN, Starting on Sun05/26/25 at 0626, Until Discontinued, Low blood sugar, Blood glucose LESS THAN 70 mg/dL and patient NOT ALERT or NPO and does not have IV access., After administration, attempt intravenous access and start dextrose 10% at 100 mL/hr. Repeat blood glucose in 15 minutes x 2 and notify provider. Reconstitute powder for injection by adding 1 mL of certified registered locksmith-supplied sterile diluent or sterile water for injection to a vial containing 1 mg of the drug, to provide solutions containing 1 mg/mL. Shake vial gently to dissolve. Start: 08-22-2024 End: 02-17-2025 BAQSIMI 3 mg/actuation nasal spray Indications: Post-pancreatectomy diabetes (HCC) USE 1 SPRAY IN THE NOSE NEEDED. MAY REPEAT AFTER 15 MINUTES USING A NEW DEVICE IF THERE IS NO RESPONSE. 2 each 1 02/17/2025 Active Glucose (20 sources) Start: 05-26-2025 IntraVENous, a t 100 mL/hr, CONTINUOUS PRN, if blood glucose remains LESS THAN 70 mg/dL after 2 dextrose 10% intravenous boluses or administration of glucagon, Starting on Sun05/26/25 at 0626, If blood glucose fails to stabilize after 2 dextrose 10% intravenous boluses or glucagon administration, start dextrose 10% infusion at 100 mL/hour and repeat blood glucose at 30 and 60 minutes. If blood glucose is GREATER THAN 70 mg/dL after 60 minutes, discontinue dextrose 10% infusion. Start: 05-26-2025 dextrose bolus 10% 125 mL Start: 05-26-2025 16 g (4 tablet ), Oral, PRN, Starting on Sun05/26/25 at 0626, Until Discontinued, Low blood sugar, If blood glucose is LESS THAN 70 mg/dL and patient is alert and tolerating oral. Give 4 tablets (16g) Repeat blood glucose in 15 minutes. If blood glucose is LESS THAN 70 mg/dL, repeat treatment and recheck blood glucose in 15 minutes x 2. If blood glucose remains LESS THAN 70 mg/dL, notify provider. Start: 08-22-2024 glucose 4 gram chewable tablet Indications: Post- pancreatectomy diabetes (HCC) Take 4 tablets by mouth as needed. 100 tablet 1 08/22/2024 Active 3 ml insulin glargine 100 unt/ml pen injector (20 sources) Insulin Analog Start: 09-04-2024 End: 12-03-2024 inject 16 [IU] by subcutaneous injection once daily at bedtime insulin glargine 100 unit/mL (3 mL) Inject 16 Units subcutaneously daily at bedtime. 14.4 mL 09/04/2024 Active Start: 08-22-2024 insulin glargi ne (LANTUS SOLOSTAR U-100 INSULIN) 100 unit/mL (3 mL) Indications: Post-pancreatectomy diabetes (HCC) Use 20 units daily 15 mL 1 08/22/2024 Suspended insulin lispro 100 unt/ml injectable solution (20 sources) Insulin Analog Start: 06-26-2025 insulin lispro (HUMALOG KWIKPEN) 100 unit/mL Indications: Post-pancreatectomy diabetes (HCC) USE UP TO 30 UNITS DAILY 15 mL 1 06/26/2025 Active Start: 04-25-2025 End: 07-07-2025 insulin lispro (HUMALOG U-10 0 INSULIN) 100 unit/mL injection Indications: Post-pancreatectomy diabetes (HCC) Use up to 70 units in insulin pump daily 70 mL 1 07/07/2025 Active Start: 10-31-2024 insulin lispro (HUMALOG U-100 INSULIN) 100 unit/mL injection Indications: Post-pancreatectomy diabetes (HCC) Use up to 70 units in insulin pump daily 70 mL 1 10/31/2024 Active Start: 09-28-2024 End: 10-31-2024 insulin lispro (HUMALOG U-10 0 INSULIN) 100 unit/mL injection Indications: Post-pancreatectomy diabetes (HCC) Use up to 50 units in insulin pump daily 50 mL 1 09/28/2024 10/31/2024 Discontinued Start: 09-04-2024 End: 06-26-2025 insulin lispro (HUMALOG KWIK PEN INSULIN) 100 unit/mL Indications: Post-pancreatectomy diabetes (HCC) [...] and Notify Provider 15 mL 1 09/04/2024 06/26/2025 Discontinued Start: 08-22-2024 insulin lispro (HUMALOG KWIKPEN INSULIN) 100 unit/mL Indications: Post-pancreatectomy diabetes (HCC) Use up to 30 units daily 15 mL 1 08/22/2024 Suspended Insulin Lispro ( HUMALOG IJ) Inject as directed Insulin pump Suspended Insulin Lispro ( HUMALOG IJ) Inject as directed Insulin pump Active isopropyl alcohol 0.7 ml/ml medicated pad (20 sources) Start: 08-22-2024 alcohol swabs (ALCOHOL WIPES) Indications: Post-pancreatectomy diabetes (HCC) Ue up to 8 times a day 800 Each 1 08/22/2024 Active 1 ml ketorolac tromethamine 30 mg/ml cartridge (7 sources) Nonsteroidal Anti-inflammatory Drug, Cyclooxygenase Inhibitor Start: 11-30-2024 30 mg, IntraMUSCular , ONCE, 1 dose, On Sun11/30/24 at 1600, Do not administer for more than 5 days. Start: 09-05-2024 30 mg, IntraMU SCular, ONCE, 1 dose, On Sun09/05/24 at 2145, Do not administer for more than 5 days. Start: 09-05-2024 End: 09-08-2024 take 1 tablet by mouth every six hours as needed for pain ketorolac (TORADOL) 10 MG tablet Take 1 tablet by mouth every 6 hours as needed for Pain 12 tablet 09/05/2024 Active Start: 08-11-2024 End: 08-11-2024 30 mg, IntraMUSCular, ONCE, 1 dose, On Sun08/11/24 at 1330, Do not administer for more than 5 days. Start: 03-17-2024 End: 03-17-2024 ketorolac (TORADOL) injectio n 30 mg lidocaine 0.04 mg/mg medicated patch (4 sources) Antiarrhythmic, Amide Local Anesthetic Start: 12-05-2024 End: 01-04-2025 apply 1 dose transdermal route once daily lidocaine 4 % external patch Place 1 patch onto the skin daily 30 patch 12/05/2024 01/04/2025 Active lipase/protease /amylase (CREON ORAL) (13 sources) lipase/protease/ amylase (CREON ORAL) Take by mouth. Suspended lipase/protease/ amylase (CREON ORAL) Take by mouth. Active lipase/protease/ amylase (CREON ORAL) Take by mouth. 0 Active magnesium hydroxide 80 mg/ml oral suspension (20 sources) Start: 09-04-2024 take 30 mL by mouth once daily as needed for constipation magnesium hydroxide (MOM) 400 mg/5 mL suspension Take 30 mL by mouth once daily as needed for constipation. 210 mL 09/04/2024 Active 1 ml mepolizumab 100 mg/ml prefilled syringe (20 sources) Interleukin-5 Antagonist Start: 04-28-2024 inject 1 mL by subcutaneous injection every 30 days NUCALA 100 mg/mL syringe Inject 1 mL (100 mg total) under the skin every 30 (thirty) days. 04/28/2024 Active inject 100 mg by sub cutaneous injection every month mepolizumab injection 100 mg (NUCALA) Inject 100 mg subcutaneously once every month. Active mepolizumab (NUC ALA) 100 MG SOLR injection Inject 1 mL into the skin every 30 days Active mepolizumab (NUC ALA SUBQ) Inject under the skin. Suspended mepolizumab (NUC ALA SUBQ) Inject under the skin. Active mepolizumab (NUC ALA SUBQ) Inject under [...] rhianna th once daily at breakfast metFORMIN XR (GLUCOPHAGE XR) 500 mg 24 hr tablet Take 1 tablet (500 mg total) by mouth daily with breakfast. 03/23/2024 Active Start: 05-24-2023 take 1 tablet by rhianna th once daily at breakfast metFORMIN (GLUCOPHAGE-XR) 500 MG extended release tablet Indications: Prediabetes Take 1 tablet by mouth daily (with breakfast) 90 tablet 0 05/24/2023 Active Start: 10-31-2021 take 1 tablet by mouth once da bj metFORMIN (GLUCOPHAGE) 500 mg tablet Take 1 tablet by mouth once daily. 10/31/2021 Suspended take 1 tablet by rhianna th once daily at breakfast metFORMIN (FORTAMET) 500 MG (OSM) 24 hr tablet Take 1 tablet (500 mg total) by mouth daily with breakfast. Suspended methocarbamol 500 mg oral tablet (2 sources) Muscle Relaxant Start: 11-30-2024 End: 12-07-2024 take 1 tablet by mouth four times daily methocarbamol (ROBAXIN) 500 MG tablet Take 1 tablet by mouth 4 times daily for 7 days 28 tablet 11/30/2024 12/07/2024 Active 1 ml methylPREDNISolone acetate 40 mg/ml injection (1 source) Corticosteroid Start: 08-08-2024 End: 08-08-2024 inject 1 dose by intramuscular injection once 40 mg, IntraMUSCular, ONCE, 1 dose, On Sun08/08/24 at 1415 Start: 08-08-2024 End: 08-08-2024 inject 1 dose by intramuscular injection once 40 mg, IntraMUSCular, ONCE, 1 dose, On Sun08/08/24 at 1415 mirtazapine 7.5 mg oral tablet (1 source) Start: 06-03-2025 take 1 tablet by mouth once daily mirtazapine (REMERON) 7.5 MG tablet Take 1 tablet by mouth nightly 30 tablet 3 06/03/2025 Active montelukast 10 mg oral tablet (20 sources) Leukotriene Receptor Antagonist Start: 05-24-2023 take 1 tablet by mouth once daily montelukast (SINGULAIR) 10 MG tablet Indications: Asthma, unspecified asthma severity, unspecified whether complicated, unspecified whether persistent 1 tablet Orally Once a day for 30 day(s) 90 tablet 1 06/18/2024 Active naloxone hydrochloride 40 mg/ml nasal spray (11 sources) Opioid Antagonist Start: 08-01-2023 naloxone (NA RCAN) 4 mg/actuation spray,non-aerosol nasal spray Administer 1 spray (4 mg total) into alternating nostrils as needed for opioid reversal. 1 each 1 08/01/2023 Active naloxone (NARCAN) 4 mg/actuation spray,non-aerosol nasal spray (2 sources) Start: 08-01-2023 naloxone (NARC AN) 4 mg/actuation spray,non-aerosol nasal spray Administer 1 spray (4 mg total) into alternating nostrils as needed for opioid reversal. 1 each 1 08/01/2023 Active Start: 08-01-2023 naloxone (NARC AN) 4 mg/actuation spray,non-aerosol nasal spray Administer 1 spray (4 mg total) into alternating nostrils as needed for opioid reversal. 1 each 1 08/01/2023 Suspended naloxone 4 mg/actuation nasal spray (NARCAN) (20 sources) Start: 08-01-2023 take [address] [...] 03-17-2024 nitroGLYCERIN (NITROSTAT) SL tablet 0.4 mg omeprazole 40 mg delayed release oral capsule (20 sources) Proton Pump Inhibitor Start: 01-03-2021 take 1 capsule by mouth once daily omeprazole (PRILOSEC) 40 mg capsule Take 40 mg by mouth once daily. 01/03/2021 Active oseltamivir 75 mg oral capsule (2 sources) Neuraminidase Inhibitor Start: 12-24-2024 End: 12-29-2024 take 1 capsule by mouth twice daily oseltamivir (TAMIFLU) 75 MG capsule Indications: Influenza A Take 1 capsule by mouth 2 times daily for 5 days 10 capsule 12/24/2024 12/29/2024 Active pantoprazole 40 mg delayed release oral tablet (20 sources) Proton Pump Inhibitor Start: 09-04-2024 End: 12-03-2024 take 1 tablet by mouth once daily pantoprazole DR (PROTONIX) 40 mg tablet Take 1 tablet by mouth once daily. 30 tablet 2 09/04/2024 Active polyethylene glycol 3350 03737 mg powder for oral solution (20 sources) Osmotic Laxative Start: 05-26-2025 Start: 09-04-2024 polyethylene g lycol 3350 17 gram packet Take 1 Packet [...] mouth once gaudencio ly prazosin (MINIPRESS) 1 mg capsule Take 1 capsule (1 mg total) by mouth nightly. Active promethazine hydrochloride 2 5 mg oral tablet (20 sources) Phenothiazine Start: 05-21-2025 End: 05-28-2025 Start: 11-27-2024 End: 12-04-2024 take 1 tablet by mouth four times daily as needed for nausea promethazine (PHENERGAN) 25 MG tablet Indications: Nausea Take 1 tablet by mouth 4 times daily as needed for Nausea 20 tablet 11/27/2024 12/04/2024 Active Start: 11-27-2024 End: 12-04-2024 promethazine (PROMETHEGAN) 2 5 MG suppository Indications: Nausea Place 1 suppository rectally every 6 hours as needed for Nausea 24 suppository 11/27/2024 12/04/2024 Active Start: 09-30-2024 End: 11-14-2024 take 25 mg [...] every 6 hours as needed. 05/28/2021 Active sodium chloride flush 0.9 % injection 3 mL (1 source) Start: 12-05-2024 sodium chloride flush 0.9 % injection 3 mL sulfamethoxazole 800 mg / trimethoprim 160 mg oral tablet (1 source) Dihydrofolate Reductase Inhibitor Antibacterial, Sulfonamide Antimicrobial Start: 05-13-2025 End: 05-23-2025 take 1 tablet by mouth twice daily sulfamethoxazol e-trimethoprim (BACTRIM DS;SEPTRA DS) 800-160 MG per tablet Take 1 tablet by mouth 2 times daily for 10 days 20 tablet 05/13/2025 05/23/2025 Active tamsulosin hydrochloride 0.4 mg oral capsule (20 sources) alpha-Adrenergic Kandi Start: 07-14-2024 take 1 capsule by mouth once daily tamsulosin (FLOMAX) 0.4 MG capsule 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 Active take 1 tablet by mouth in the mo rning zinc gluconate 50 mg tablet Take 1 tablet (50 mg total) by mouth in the morning. Suspended Completed/Discontinued Medications Medication Drug Class(es) Dates Sig (Normalized) Sig (Original) acetaminophen 325 mg / HYDROcodone bitartrate 5 mg oral tablet (2 sources) Opioid Agonist Start: 05-25-2025 End: 05-25-2025 take 1 tablet by mouth every twenty-four hours 1 tablet, Oral, ONCE, 1 dose, On Sun05/25/25 at 2330, Maximum dose of acetaminophen is 4000 mg from all sources in 24 hours. Start: 08-11-2024 End: 08-14-2024 HYDROcodone-acetaminophen (N ORCO) 5-325 MG per tablet Indications: Left-sided chest wall pain , Rib contusion, left, sequela Take 1 tablet by mouth every 8 hours as needed for Pain (moderate severe) for up to 3 days. Intended supply: 7 days. Take lowest dose possible to manage pain Max Daily Amount: 3 tablets 9 tablet 08/11/2024 08/14/2024 Active acetaminophen 325 mg / oxyCODONE hydrochloride 5 mg oral tablet (1 source) Opioid Agonist Start: 05-30-2025 End: 05-30-2025 take 1 tablet by mouth every twenty-four hours 1 tablet, Oral, ONCE, 1 dose, On 05/30/25 at 2115, Maximum dose of acetaminophen is 4000 mg from all sources in 24 hours. Start: 05-30-2025 End: 05-30-2025 take 1 tablet by mouth every twenty-four hours 1 tablet, Oral, ONCE, 1 dose, On 05/30/25 at 2115, Maximum dose of acetaminophen is 4000 mg from all sources in 24 hours. [id number] 200 actuat albuterol 0.09 mg/actuat metered dose inhaler (20 sources) beta2-Adrenergic Agonist Start: 05-26-2025 2 puf f, Inhalation, EVERY 4 HOURS PRN, Starting on Sun05/26/25 at 0301, Until Discontinued, Wheezing, Shortness of Breath, Initiate RT Bronchodilator Protocol: Yes - Inpatient Protocol, Substituted for albuterol (PROAIR RESPICLICK) Start: 07-03-2024 take 2.5 mg by inhal ation every four hours as needed albuterol (PROVENTIL) 2.5 mg /3 mL (0.083 %) nebulizer solution Use 2.5 mg via nebulizer every 4 hours as needed. 07/03/2024 Active Start: 04-14-2024 take 2 puff(s) by in halation every four hours as needed for wheezing albuterol (PROVENTIL HFA;VENTOLIN HFA) 90 mcg/actuation inhaler Inhale 2 puffs every 4 (four) hours as needed for wheezing or shortness of breath. 04/14/2024 Active Start: 03-25-2024 take 2 puff(s) by in halation every six hours as needed ProAir RespiClick 90 mcg/actuation breath activated (albuterol sulfate) 2 puffs, Inhale, q6hr, PRN, # 1 EA, 0 Refill(s), Pharmacy: [facility]. 03/25/2024 Active Start: 02-06-2024 take 2 puff(s) by in halation every six hours as needed albuterol sulfate (PROAIR RESPICLICK) 108 (90 Base) MCG/ACT aerosol powder inhalation Indications: Asthma, unspecified asthma severity, unspecified whether complicated, unspecified whether persistent 2 puffs, Inhale, q6hr, PRN, # 1 EA, 0 Refill(s), Pharmacy: [facility] 1 each 0 02/06/2024 Active Start: 10-03-2021 [...] PRN, # 1 EA, 0 Refill(s), Pharmacy: [facility] 1 Inhaler 0 12/13/2018 Active albuterol 0.833 mg/ml / ipratropium bromide 0.167 mg/ml inhalation solution (2 sources) Anticholinergic, beta2-Adrenergic Agonist Start: 05-26-2025 take 1 dose by inhalation four times daily 1 Dose, Inhalation, 4 TIMES DAILY RESP, First dose (after last modification) on Sun05/26/25 at 0600, Until Discontinued, Initiate RT Bronchodilator Protocol: Yes - Inpatient Protocol Start: 05-26-2025 End: 05-26-2025 take 1 dose by inhalation every four hours as needed for wheezing 1 Dose, Inhalation, EVERY 4 HOURS PRN, Starting on Sun05/26/25 at 0016, Until Sun05/26/25 at 0304, Shortness of Breath, Wheezing, Initiate RT Bronchodilator Protocol: Yes - Inpatient Protocol amitriptyline hydrochloride 25 mg oral tablet (20 sources) Tricyclic Antidepressant Start: 05-26-2025 take 50 mg by mouth once daily at bedtime 50 mg, Oral, NIGHTLY, First dose on Sun05/26/25 at 0045, Until Discontinued, at bedtime. Start: 01-23-2018 take 1 tablet by rhianna th once daily at bedtime amitriptyline (ELAVIL) 50 mg tablet Take 1 tablet by mouth daily at bedtime. 01/23/2018 Active AMLODIPINE BESYLATE, BULK, M ISC (12 sources) AMLODIPINE BESYL ATE, BULK, MISC by miscellaneous route. Suspended AMLODIPINE BESYL ATE, BULK, MISC by miscellaneous route. Active AMLODIPINE BESYL ATE, BULK, MISC by miscellaneous route. 0 Active amylase 13351 unt / lipase 5000 unt / protease 82968 unt delayed release oral capsule (20 sources) Start: 05-30-2025 take 44343 [IU] by mouth three times daily at mealtime 10,000 Units, Oral, 3 TIMES DAILY WITH MEALS, First dose on Sun05/30/25 at 1745, Until Discontinued Start: 05-26-2025 take 1 dose by mouth once 35,0 00 Units, Oral, ONCE PRN, 1 dose, Starting on Sun05/26/25 at 1155, Until Discontinued, with snack Start: 05-26-2025 35,000 Units ( rounded from 36,000 Units), Oral, 3 TIMES DAILY WITH MEALS, First dose on Sun05/26/25 at 0800, Until Discontinued, Substituted for pancrelipase (CREON). Start: 08-04-2024 lipase-proteas e-amylase (CREON 36) 36,000-114,000- 180,000 unit delayed release capsule Take 3 caps by mouth 3 times daily with meals and 1 cap with each snack (2) 330 capsule 11 08/04/2024 Active Start: 05-10-2024 CREON 36,000-1 14,000- 180,000 unit capsule,delayed release(DR/EC) Take 2 capsules (72,000 units of lipase total) by mouth in the morning and 2 capsules (72,000 units of lipase total) at noon and 2 capsules (72,000 units of lipase total) in the evening. Take with meals. TAKE 2 CAPSULES BY MOUTH WITH MEALS AND THEN 1 CAP WITH SNACKS.. 05/10/2024 Active Start: 02-08-2024 take 1 capsule by [facility] once daily xbecvj-fiobmqna-mbvhyzu (CREON) 72428-695532 units CPEP delayed release capsule Indications: Chronic pancreatitis, unspecified pancreatitis type (HCC) , Medication refill Creon 82253 units oral delayed release capsule: TAKE 2 CAPSULES WITH MEALS (3 TIMES A DAY) AND 1 CAPSULE WITH SNACKS (1 DAILY). 200 capsule 1 02/08/2024 Active Start: 01-03-2024 take 1 capsule by [facility] once daily ndgrmo-zirwfkak-ndrpkcb (CREON) 27141-605517 units CPEP delayed release capsule Indications: Chronic pancreatitis, unspecified pancreatitis type (HCC) , Medication refill Creon 84774 units oral delayed release capsule: TAKE 2 CAPSULES WITH MEALS (3 TIMES A DAY) AND 1 CAPSULE WITH SNACKS (1 DAILY). 180 capsule 1 01/03/2024 Active Start: 11-12-2023 take 1 capsule by [facility] once daily kcpauz-nykmolhh-txibsij (CREON) 81130-455007 units CPEP delayed release capsule Indications: Chronic pancreatitis, unspecified pancreatitis type (HCC) , Medication refill Creon 26905 units oral delayed release capsule: TAKE 2 CAPSULES WITH MEALS (3 TIMES A DAY) AND 1 CAPSULE WITH SNACKS (1 DAILY). 180 capsule 0 11/12/2023 Active Start: 05-24-2023 take 1 capsule by [facility] three times daily at mealtime jijvhy-gslpiukx-iphychn (CREON) 93909-438210 units CPEP delayed release capsule Take 1 capsule by mouth 3 times daily (with meals) 180 capsule 0 05/24/2023 Active aspirin 81 mg chewable tablet (1 source) Platelet Aggregation Inhibitor, Nonsteroidal Anti-inflammatory Drug Start: 03-17-2024 End: 03-17-2024 aspirin chewable tablet 324 mg azithromycin (ZITHROMAX) 500 mg in sodium chloride 0.9 % 250 mL IVPB ([id number]) (1 source) Start: 05-25-2025 End: 05-26-2025 500 mg, IntraVENous, ONCE, 1 dose, On Sun05/25/25 at 2330, Antimicrobial Indications: Pneumonia (CAP), Use 20mm (Blue) [id number] Adapter Preparation instructions: Attach medication vial to one 20mm (Blue) [id number] adapter. Selvin fluid bag with adapter, mix, and administer per order. 60 actuat budesonide 0.16 mg/actuat / formoterol fumarate 0.0045 mg/actuat metered dose inhaler (1 source) Corticosteroid, beta2-Adrenergic Agonist Start: 05-26-2025 take 2 puff(s) by inhalation twice daily 2 puff, Inhalation, 2 TIMES DAILY RESP, First dose on Sun05/26/25 at 0045, Until Discontinued, Substituted for Fluticasone-vilan terol (BREO ELLIPTA). cefdinir 300 mg oral capsule (2 sources) Cephalosporin Antibacterial Start: 06-18-2025 End: 06-18-2025 take 1 capsule by mouth once 300 mg, Oral, ONCE, 1 dose, On Sun06/18/25 at 1830, Antimicrobial Indications: Pneumonia (CAP) Start: 06-18-2025 End: 06-28-2025 take 1 capsule by mouth twice daily cefdinir (OMNICEF) 300 MG capsule Take 1 capsule by mouth 2 times daily for 10 days 20 capsule 06/18/2025 06/28/2025 Active cefTRIAXone (ROCEPHIN) 1,000 mg in sterile water 10 mL IV syringe (1 source) Start: 05-25-2025 End: 05-25-2025 take 100 mg intravenously once 1,000 mg, IntraVENous, ONCE, On Sun05/25/25 at 2330, For 1 dose, Administer as slow IV Push over 5 mins Reconstitute 1 g vials with 9.6 mL of designated diluent to produce a 100 mg/mL solution. cetirizine hydrochloride 10 mg oral tablet (1 source) Histamine-1 Receptor Antagonist Start: 05-26-2025 10 mg, Oral, DAILY, First dose on Sun05/26/25 at 0900, Until Discontinued, Substituted for Fexofenadine (CHAKA). doxycycline hyclate 100 mg oral capsule (8 sources) Tetracycline-cl ass Drug Start: 06-18-2025 End: 06-18-2025 take 1 capsule by mouth once 100 mg, Oral, ONCE, 1 dose, On Vashti 06/18/25 at 1830, Antimicrobial Indications: Pneumonia (CAP), This medication can interact with tube feedings (TF)- obtain MD order to manage. Recommend holding TF for 1 h before and 2 h after dose. Take 1 h before or 2 h after dairy, calcium, iron, magnesium, aluminum or zinc. Start: 06-18-2025 End: 06-28-2025 take 1 tablet by mouth twice daily doxycycline hyclate (VIBRA-TABS) 100 MG tablet Take 1 tablet by mouth 2 times daily for 10 days 20 tablet 06/18/2025 06/28/2025 Active Start: 05-30-2025 End: 05-30-2025 take 1 capsule by mouth once 100 mg, Oral, ONCE, 1 dos e, On 05/30/25 at 2300, Antimicrobial Indications: Pneumonia (CAP), This medication can interact with tube feedings (TF)- obtain MD order to manage. Recommend holding TF for 1 h before and 2 h after dose. Take 1 h before or 2 h after dairy, calcium, iron, magnesium, aluminum or zinc. Start: 05-27-2025 End: 06-04-2025 take 1 capsule by mouth every twelve hours doxycycline hyclate (VIBRAMYCIN) 100 MG capsule Take 1 capsule by mouth every 12 hours for 15 doses 15 capsule 05/27/2025 06/04/2025 Active Start: 05-27-2025 End: 06-04-2025 100 mg, Oral, EVERY 12 HOURS SCHEDULED (2 times per day), 16 doses, First dose on Sun05/27/25 at 0900, Last dose on Sun06/03/25 at 2100, Antimicrobial Indications: Pneumonia (CAP), CAP duration of therapy: Other, Other CAP Duration: 8 days, This medication can interact with tube feedings (TF)- obtain MD order to manage. Recommend holding TF for 1 h before and 2 h after dose. Take 1 h before or 2 h after dairy, calcium, iron, magnesium, aluminum or zinc. Start: 07-30-2024 End: 08-09-2024 take 1 tablet by mouth twice daily doxycycline hyclate (VIBRA-TABS) 100 MG tablet Indications: Acute non-recurrent pansinusitis Take 1 tablet by mouth 2 times daily for 10 days 20 tablet 07/30/2024 08/09/2024 Active 0.4 ml enoxaparin sodium 100 mg/ml prefilled syringe (1 source) Low Molecular Weight Heparin Start: 05-26-2025 inject 40 mg by subcutaneous injection once daily 40 mg, SubCUTAneous, DAILY, First dose on Sun05/26/25 at 0900, Until Discontinued, Indication of Use: Prophylaxis-DVT/PE 1 ml fentaNYL 0.05 mg/ml injection (2 sources) Opioid Agonist Start: 01-05-2025 End: 01-05-2025 INTRAVENOUS, X (OR/PROCEDURE) PRN, Starting on Sun01/05/25 at 1508, Until Sun01/05/25 at 1511, Intraprocedure Start: 12-05-2024 End: 12-05-2024 take 1 dose by mouth every hour 50 mcg, IntraVENous, ONCE, 1 dose, On Sun12/05/24 at 1645, If oral and IV narcotics ordered, use oral first and only use IV if oral is ineffective or cannot take oral. Do Not give oral and IV within 1 hour of each other unless specifically ordered. ferrous sulfate 325 mg oral tablet (20 sources) Start: 05-27-2025 take 1 dose by mouth every two hours 325 mg, Oral, DAILY WITH LUNCH, First dose (after last modification) on Sun05/27/25 at 1200, Until Discontinued, Separate from Doxycycline by at least 2 hours Start: 11-13-2023 End: 05-27-2025 take 1 tablet by mouth once daily ferrous sulfate 325 mg (65 mg iron) tablet Take 325 mg by mouth once daily. 11/13/2023 Active 0.5 ml HYDROmorphone hydrochloride 1 mg/ml prefilled [...] specifically ordered. iopamidol (ISOVUE-370) 76 % injection 18 mL (1 source) Start: 02-16-2025 End: 02-16-2025 take 1 dose by mouth once 18 mL, Oral, IMG ONCE PRN, 1 dose, Starting on Sun02/16/25 at 1119, Until Sun02/16/25 at 1015, Other iopamidol (ISOVUE-370) 76 % injection 75 mL (4 sources) Start: 06-18-2025 End: 06-18-2025 take 1 dose intravenously once 75 mL, IntraVENous, IMG ONCE PRN, 1 dose, Starting on Sun06/18/25 at 1654, Until Sun06/18/25 at 1704, Other Start: 02-16-2025 End: 02-16-2025 take 1 dose intravenously once 75 mL, IntraVENous, IMG ONCE PRN, 1 dose, Starting on Sun02/16/25 at 1109, Until Sun02/16/25 at 1115, Other Start: 12-05-2024 End: 12-05-2024 take 1 dose intravenously once 75 mL, IntraVENous, IMG ONCE PRN, 1 dose, Starting on Sun12/05/24 at 1717, Until Sun12/05/24 at 1734, Other Start: 04-23-2024 End: 04-23-2024 iopamidol (ISOVUE-370) 76 % injection 75 mL LORazepam 1 mg oral tablet (1 source) Benzodiazepine Start: 05-30-2025 End: 05-30-2025 take 1 dose by mouth once 1 mg, Oral, ONCE, 1 dose, On 05/30/25 at 1715 2 ml metoclopramide 5 mg/ml prefilled syringe (9 sources) Dopamine-2 Receptor Antagonist Start: 05-26-2025 5 mg, IntraVENous, EVERY 6 HOURS PRN, Starting on Sun05/26/25 at 0119, Until Discontinued, Heartburn, IV Push: Max 10 mg over 1-2 minutes. Start: 05-25-2025 End: 05-25-2025 10 mg, IntraVENous, ONCE, 1 dose, On Sun05/25/25 at 1745, IV Push: Max 10 mg over 1-2 minutes. Start: 09-04-2024 End: 09-18-2024 take 1 tablet by mouth three times daily metoclopramide HCl (REGLAN) 10 mg tablet Take 1 tablet by mouth three times a day for 14 days. 42 tablet 09/04/2024 09/18/2024 Active Start: 08-05-2024 End: 08-05-2024 10 mg, IntraVENous, ONCE, 1 dose, On Tu08/05/24 at 1945, IV Push: Max 10 mg over 1-2 minutes. 5 ml midazolam 1 mg/ml injection (1 source) Benzodiazepine Start: 01-05-2025 End: 01-05-2025 INTRAVENOUS, X (OR/PROCEDURE) PRN, Starting on Sun01/05/25 at 1508, Until Sun01/05/25 at 1511, Intraprocedure 1 ml morphine sulfate 4 mg/ml injection (3 sources) Opioid Agonist Start: 06-18-2025 End: 06-18-2025 take 1 dose by mouth every hour 4 mg, IntraVENous, ONCE, 1 dose, On Vashti 06/18/25 at 1545, If oral and IV narcotics ordered, use oral first and only use IV if oral is ineffective or cannot take oral. Do Not give oral and IV within 1 hour of each other unless specifically ordered. Start: 05-25-2025 End: 05-25-2025 take 1 dose by mouth every hour 4 mg, IntraVENous, ONCE, 1 dose, On Sun05/25/25 at 2000, If oral and IV narcotics ordered, use oral first and only use IV if oral is ineffective or cannot take oral. Do Not give oral and IV within 1 hour of each other unless specifically ordered. Start: 05-25-2025 End: 05-25-2025 take 1 dose by mouth every hour 4 mg, IntraVENous, ONCE, 1 dose, On Sun05/25/25 at 1745, If oral and IV narcotics ordered, use oral first and only use IV if oral is ineffective or cannot take oral. Do Not give oral and IV within 1 hour of each other unless specifically ordered. NON FORMULARY (19 sources) NON FORMULARY Me d Name: Sophie Raymundo Suspended NON FORMULARY Me d Name: Genoveva Sewell Suspended NON FORMULARY Me d Name: Sophie Raymundo Active NON FORMULARY Me d Name: Genoveva Sewell Active NON FORMULARY Me d Name: Genoveva Sewell 0 Active NON FORMULARY Me d Name: Sophie Raymundo 0 Active 2 ml orphenadrine citrate 30 mg/ml injection [...] 10 days 20 tablet 08/08/2024 08/18/2024 Active oxyCODONE hydrochloride 5 mg oral tablet (5 sources) Opioid Agonist Start: 05-26-2025 take 5 mg by mouth every four hours as needed for pain 5 mg, Oral, EVERY 4 HOURS PRN, Starting on Sun05/26/25 at 0119, Until Discontinued, Pain Moderate (4-6) OR per patient request for pain score (7-10) Start: 09-05-2024 End: 09-12-2024 take 1 tablet by mouth every eight hours as needed for pain oxyCODONE IR (ROXICODONE) 5 mg immediate release tablet Indications: Acute post-operative pain Take 1 tablet by mouth every 8 hours as needed for pain (for pain not relieved by your baseline tramadol regimen and tylenol) for up to 7 days. 21 tablet 09/05/2024 09/12/2024 Active prochlorperazine 5 mg/ml injectable solution (1 source) Phenothiazine Start: 06-18-2025 End: 06-18-2025 10 mg, IntraVENous, ONCE, 1 dose, On Vashti 06/18/25 at 1545, If administering IV push, administer at a maximum rate of 5 mg/minute. Patients should remain lying down following administration and be reassessed for relief of nausea and presence of hypotension. Patients should be assisted the first time they get up after administration. regadenoson (LEXISCAN) injection 0.4 mg (1 source) Start: 07-05-2023 End: 07-05-2023 regadenoson (LEXISCAN) injection 0.4 mg 50 ml sodium chloride 9 mg/ml injection (8 sources) Start: 06-18-2025 End: 06-18-2025 1,000 mL (10.6 mL/kg), IntraVENous, at 2,000 mL/hr, Administer over 30 Minutes, ONCE, On Sun06/18/25 at 1545, For 1 dose Start: 05-26-2025 5-40 mL, Intra VENous, EVERY 12 HOURS SCHEDULED (2 times per day), First dose on Sun05/26/25 at 0900, Until Discontinued, For Line Patency: Peripheral IV = 5 mL; Midline or Central Line = 10 mL/lumen. If following IV push medication, administer flush at same rate as the IV push. Flush volume is determined by type of infusion therapy being given. For non-viscous solutions use: Peripheral IV = 5 mL Midline or Central Line = 10 mL/lumen For viscous solutions (i.e. blood components, parenteral nutrition, contrast media, or after obtaining blood sample) use: Peripheral IV = 10 mL Midline or Central Line = 20 mL/lumen Start: 05-26-2025 Start: 05-25-2025 End: 05-27-2025 IntraVENous, at 75 mL/hr, CO NTINUOUS, Starting on Sun05/26/25 at 0045, For 24 hours, Complete last bag that is running at 24 hours and then saline lock IV Start: 12-05-2024 End: 12-05-2024 1,000 mL (11.6 mL/kg), Intra VENous, at 2,000 mL/hr, Administer over 30 Minutes, ONCE, On Sun12/05/24 at 1645, For 1 dose Start: 08-05-2024 End: 08-05-2024 1,000 mL (10.3 mL/kg), Intra VENous, at 983.6 mL/hr, Administer over 61 Minutes, ONCE, On Sun08/05/24 at 1945, For 1 dose technetium sestamibi (CARDIOLITE) injection 30 millicurie (1 source) Start: 07-05-2023 End: 07-05-2023 technetium sestamibi (CARDIOLITE) injection 30 millicurie tetracycline hydrochloride 250 mg oral capsule (12 sources) Tetracycline-class Antimicrobial tetracycline (ACHROMYCIN,SUMYCI N) 250 mg capsule Take 1 capsule (250 mg total) by mouth in the morning and 1 capsule (250 mg total) at noon and 1 capsule (250 mg total) in the evening and 1 capsule (250 mg total) before bedtime. Suspended traMADol hydrochloride 50 mg oral tablet (20 sources) Opioid Agonist Start: 05-26-2025 take 100 mg by mouth twice daily 100 mg, Oral, 2 TIMES DAILY, First dose on Sun05/26/25 at 0045, Until Discontinued Start: 04-09-2024 take 1-2 tablets by mouth twice daily as needed traMADoL (ULTRAM) 50 mg tablet Indications: Postlaminectomy syndrome, lumbar region Take 1-2 tabs po bid prn. Fill date 04/09/2024 84 tablet 04/09/2024 Active Start: 04-09-2024 take 1-2 tablets by mouth twice daily as needed traMADoL (ULTRAM) 50 mg tablet Indications: Postlaminectomy syndrome, lumbar region Take 1-2 tabs po bid prn. Fill date 04/09/2024 84 tablet 04/09/2024 Active Start: 02-29-2024 End: 04-03-2024 take 1-2 tablets by mouth twice daily as needed traMADoL (ULTRAM) 50 mg tablet Indications: Postlaminectomy syndrome, lumbar region Take 1-2 tabs po bid prn. 120 tablet 02/29/2024 04/03/2024 Discontinued (Reorder) Start: 02-29-2024 take 1-2 tablets by mouth twice daily as needed traMADoL (ULTRAM) 50 mg tablet Indications: Postlaminectomy syndrome, lumbar region Take 1-2 tabs po bid prn. 120 tablet 02/29/2024 Active Start: 01-28-2024 End: 02-25-2024 take 1-2 tablets by mouth twice daily as needed traMADoL (ULTRAM) 50 mg tablet Indications: Postlaminectomy syndrome, lumbar region Take 1-2 tabs po bid prn. 120 tablet 01/28/2024 02/25/2024 Discontinued (Reorder) Start: 01-28-2024 take 1-2 tablets by mouth [...] 10/28/22 120 tablet 0 10/28/2023 Active Start: 08-31-2023 End: 05-27-2025 take 1 tablet by mouth once daily traMADol (ULTRAM ER) 100 MG extended release tablet Take 1 tablet by mouth daily. Takes at 1400 08/31/2023 05/27/2025 Discontinued (Stop Taking at Discharge) Start: 08-29-2023 End: 09-12-2024 traMADol (ULTRAM) 50 MG tabl et Take 2 tablets by mouth 2 times daily as needed for Pain. Takes at 0600 and 1400 08/29/2023 Active Start: 08-29-2023 End: 10-24-2023 take 1-2 tablets by mouth twice daily as needed traMADoL (ULTRAM) 50 mg tablet Indications: Postlaminectomy syndrome, lumbar region Take 1-2 tabs po bid prn 120 tablet 0 09/30/2023 10/24/2023 Discontinued (Reorder) Start: 06-11-2023 End: 08-02-2023 take 1 tablet by mouth once daily as needed traMADol 100 mg 24 hr tablet Take 100 mg by mouth once daily as needed. 06/15/2023 Suspended Start: 06-11-2023 End: 08-02-2023 take 2 tablets by mouth twice daily traMADol (ULTRAM) 50 mg tablet Take 2 tablets by mouth two times a day. 06/15/2023 Suspended take 1 tablet by rhianna once daily traMADol (ULTRAM ER) 100 MG TB24 extended release tablet Take 1 tablet by mouth daily. Active tramadol HCl (TR AMADOL ORAL) Take by mouth. Active vitamin B and C (TOTAL B-C) tablet 1 tablet (1 source) Start: 05-26-2025 take 1 tablet by mouth once daily 1 tablet, Oral, DAILY, First dose on Sun05/26/25 at 0900, Until Discontinued ziprasidone 20 mg oral capsule (20 sources) Atypical Antipsychotic Start: 05-26-2025 take 40 mg by mouth once daily at mealtime 40 mg, Oral, NIGHTLY, First dose on Sun05/26/25 at 0045, Until Discontinued, May cause prolongation of QT interval. Take with food. Start: 2018 take 1 capsule by mo uth once daily in the evening ziprasidone (GEODON) [...] total) in the evening. Take with meals. Suspended ziprasidone (LEE ANN DON) injection Inject 1 mL (20 mg total) into the appropriate muscle once. Suspended Problems Active Problems Problem Classification Problem Date Documented Da te Episodic/Chronic Abdominal pain (18 sources) Epigastric pain; Translations: [Epigastric pain] Onset: 4 08-05-2024 Episodic Acute and unspecified renal failure (2 sources) Acute renal failure syndrome; Translations: [Acute kidney failure, unspecified] Onset: 5 05-25-2025 Episodic Anxiety disorders (20 sources) Posttraumatic stress disorder; Translations: [Post-traumatic stress disorder, unspecified] Onset: 3 Resolved: 3 05-18-2023 Chronic Asthma (20 sources) Severe persistent asthma; Translations: [Severe persistent asthma, uncomplicated] Onset: 9 05-18-2023 Chronic Cancer of other GI organs; peritoneum (4 sources) History of malignant neoplasm of pancreas; Translations: [Personal history of malignant neoplasm of pancreas] Onset: 5 05-26-2025 Episodic Complications of surgical procedures or medical care (1 source) Postprocedural hypoinsulinemia; 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)] Onset: 4 Chronic Deficiency and other anemia (2 sources) Anemia; Translations: [Anemia, unspecified] 11-30-2023 Episodic Diabetes mellitus without complication (20 sources) Type 2 diabetes mellitus without complication; Translations: [Type 2 diabetes mellitus without complications] Onset: 2 Resolved: 5 01-11-2024 Chronic Diabetes mellitus without complication (20 sources) Hyperglycemia; Translations: [Hyperglycemia, unspecified] Onset: 9 Resolved: 3 05-18-2023 Episodic Disorders of lipid metabolism (20 sources) Hypertriglyceridemia; Translations: [Pure hyperglyceridemia] Onset: 3 05-18-2023 Chronic Esophageal disorders (20 sources) Gastroesophageal reflux disease; Translations: [Gastro-esophageal reflux disease without esophagitis] Onset: 2 05-18-2023 Chronic Essential hypertension (20 sources) Essential hypertension; Translations: [Essential (primary) hypertension] Onset: 4 07-05-2023 Chronic Fracture of upper limb (1 source) Closed fracture of phalanx of index finger; Translations: [Fracture of unspecified phalanx of left index finger, initial encounter for closed fracture] 04-26-2024 Episodic Genitourinary symptoms and ill-defined conditions (5 sources) Dysuria; Translations: [Dysuria] Onset: 5 11-27-2024 Episodic Hyperplasia of prostate (20 sources) Large prostate ; Translations: [Benign prostatic hyperplasia without lower urinary tract symptoms] Onset: 0 Resolved: 3 05-18-2023 Chronic Mood disorders (20 sources) Bipolar I disorder; Translations: [Bipolar disorder, unspecified] Onset: 0 Resolved: 3 05-18-2023 Chronic Mood disorders (3 sources) Mood disorders; Translations: [Depression, unspecified] Onset: 5 05-24-2024 Nausea and vomiting (4 sources) Diarrhea and vomiting; Translations: [Vomiting, unspecified] Onset: 5 12-16-2024 Episodic Nutritional deficiencies (20 sources) Vitamin D deficiency; Translations: [Vitamin D deficiency, unspecified] Onset: 8 Resolved: 3 05-18-2023 Chronic Osteoarthritis (20 sources) Idiopathic osteoarthritis; Translations: [Primary osteoarthritis, unspecified site] Onset: 3 05-29-2023 Chronic Other and unspecified benign neoplasm (20 sources) Polyp of colon; Translations: [Polyp of colon] 02-04-2018 Episodic Other diseases of kidney and ureters (1 source) Other obstructive and reflux uropathy; Translations: [Other obstructive and reflux uropathy] Onset: 5 Episodic Other gastrointestinal disorders (1 source) Diarrhea; Translations: [Diarrhea, unspecified] Episodic Other gastrointestinal disorders (3 sources) History of diverticulitis; Translations: [Personal history of other diseases of the digestive system] 02-16-2025 Episodic Other liver diseases (20 sources) Steatosis of liver; Translations: [Fatty (change of) liver, not elsewhere classified] Onset: 4 05-18-2023 Chronic Other liver diseases (1 source) Fatty (change of) liver, not elsewhere classified; Translations: [Fatty liver] Onset: Chronic Other lower respiratory disease (1 source) Rib pain; Translations: [Pleurodynia] 12-05-2024 Episodic Other nervous system disorders (1 source) Chronic pain syndrome; Translations: [Chronic pain syndrome] 11-30-2023 Chronic Other nutritional; endocrine; and metabolic disorders (20 sources) Obese class I; Translations: [Obesity, Class I, BMI 30-34.9] Onset: 4 08-30-2024 Chronic Pancreatic disorders (not diabetes) (20 sources) Chronic pancreatitis; Translations: [Other chronic pancreatitis] Onset: 4 08-05-2024 Chronic Pneumonia (except that caused by tuberculosis or sexually transmitted disease) (8 sources) Right lower zone pneumonia; Translations: [Pneumonia, unspecified organism] Onset: 5 05-25-2025 Episodic Residual codes; unclassified (20 sources) History of pancreatectomy; 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] Onset: 4 08-30-2024 Chronic Residual codes; unclassified (4 sources) History of Whipple procedure; 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] Onset: 5 05-26-2025 Chronic Residual codes; unclassified (1 source) Acquired total absence of pancreas; 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)] Onset: 4 Chronic Residual codes; unclassified (1 source) Pain, unspecified; Translations: [Pain, unspecified] Onset: Episodic Residual codes; unclassified (1 source) Family history of Dong esophagus; Translations: [Family history of other diseases of the digestive system] 01-23-2025 Episodic Spondylosis; intervertebral disc disorders; other back problems (20 sources) Spondylosis without myelopathy or radiculopathy, thoracic region; Translations: [Postlaminectomy syndrome, not elsewhere classified] Onset: 3 08-22-2024 Chronic Suicide and intentional self-inflicted injury (2 sources) Suicidal ideations; Translations: [Suicidal ideations] Onset: 5 Episodic Systemic lupus erythematosus and connective tissue disorders (20 sources) Eosinophilic granulomatosis with polyangiitis; 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 [Churg-Ebenezer]] Onset: 1 08-22-2024 Chronic Unclassified (1 source) Postlaminectomy syndrome, lumbar region [722.83] Onset: 4 Unclassified (1 source) 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[facility]); Translations: [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[facility])] Onset: 4 Past or Other Problems Problem Classification Problem Date Documented Da te Episodic/Chronic Acute posthemorrhagic anemia (20 sources) Acute posthemorrhagic anemia; Translations: [Acute posthemorrhagic anemia] Onset: 08-28-2024 Resolved: 09-04-2024 09-04-2024 Episodic Chronic obstructive pulmonary disease and bronchiectasis (20 sources) Bronchitis; Translations: [Bronchitis, not specified as acute or chronic] Onset: 02-07-2024 02-07-2024 Episodic Complications of surgical procedures or medical care (20 sources) Pulmonary insufficiency following surgery; Translations: [Other postprocedural complications and disorders of respiratory system, not elsewhere classified] Onset: 08-30-2024 Resolved: 09-04-2024 09-04-2024 Episodic Deficiency and other anemia (3 sources) Anemia, unspecified; Translations: [Anemia, unspecified] Onset: 07-14-2024 Episodic Diverticulosis and diverticulitis (20 sources) Diverticular disease; Translations: [Diverticulosis of intestine, part unspecified, without perforation or abscess without bleeding] Onset: 01-26-2020 Resolved: 05-18-2023 05-18-2023 Chronic Hemorrhoids (20 sources) Internal hemorrhoids; Translations: [Other hemorrhoids] Onset: 01-26-2020 Resolved: 05-18-2023 05-18-2023 Episodic Influenza (4 sources) Influenza due to Influenza A virus; Translations: [Influenza due to other identified influenza virus with other respiratory manifestations] Onset: 12-24-2024 12-24-2024 Episodic Malaise and fatigue (5 sources) Fatigue; Translations: [Other fatigue] Onset: 07-14-2024 11-30-2023 Episodic Neoplasms of unspecified nature or uncertain behavior (20 sources) Benign neoplasm of pancreas; 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] Onset: 08-28-2024 Resolved: 09-04-2024 07-22-2024 Episodic Nonspecific chest pain (7 sources) Chest pain; Translations: [Chest pain, unspecified] Onset: 12-24-2024 07-05-2023 Episodic Other aftercare (1 source) 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; Translations: [intermediate (current) use of opiate analgesic] Onset: 12-25-2023 Episodic Other aftercare (20 sources) Insulin dose changed; Translations: [intermediate (current) use of insulin] Onset: 08-30-2024 08-30-2024 Episodic Other aftercare (12 sources) Admission statuses; Translations: [intermediate (current) use of opiate analgesic] Onset: 12-24-2023 10-24-2023 Episodic Other connective tissue disease (20 sources) Trochanteric bursitis of right hip; Translations: [Trochanteric bursitis, right hip] Onset: 05-29-2023 05-29-2023 Episodic Other diseases of kidney and ureters (20 sources) Kidney lesion; Translations: [Disorder of kidney and ureter, unspecified] Resolved: 05-18-2023 05-18-2023 Episodic Other gastrointestinal disorders (1 source) Personal history of other diseases of the digestive system; Translations: [Personal history of other diseases of the digestive system] Onset: 02-16-2025 Episodic Other gastrointestinal disorders (1 source) Diarrhea, unspecified; Translations: [Diarrhea, unspecified] Onset: 12-16-2024 Episodic Other lower respiratory disease (20 sources) Disorder of lung; Translations: [Other disorders of lung] Resolved: 05-18-2023 05-18-2023 Episodic Other lower respiratory disease (1 source) Pleurodynia; Translations: [Pleurodynia] Onset: 12-05-2024 Episodic Other nervous system disorders (20 sources) Acute postoperative pain; Translations: [Other acute postprocedural pain] Onset: 08-28-2024 09-05-2024 Episodic Other nervous system disorders (1 source) Other acute postprocedural pain; Translations: [Acute postoperative pain] Onset: 08-28-2024 Episodic Other non-traumatic joint disorders (20 sources) Pain in right knee; Translations: [Pain in joint, lower leg] Onset: 05-24-2020 05-29-2023 Episodic Other nutritional; endocrine; and metabolic disorders (2 sources) Obesity; Translations: [Other obesity due to excess calories] Onset: 02-04-2018 Resolved: 05-18-2023 05-18-2023 Chronic Other nutritional; endocrine; and metabolic disorders (20 sources) Obesity caused by energy imbalance; Translations: [Other obesity due to excess calories] Onset: 02-04-2018 Resolved: 05-18-2023 05-18-2023 Chronic Other screening for suspected conditions (not mental disorders or infectious disease) (20 sources) Other specified abnormal findings of blood chemistry; Translations: [Other abnormal blood chemistry] Onset: 03-25-2018 Resolved: 05-18-2023 05-18-2023 Episodic Other upper respiratory disease (20 sources) Seasonal allergy; Translations: [Other seasonal allergic rhinitis] Resolved: 05-18-2023 05-18-2023 Chronic Pancreatic disorders (not diabetes) (20 sources) Acute on chronic pancreatitis; Translations: [Acute pancreatitis without necrosis or infection, unspecified] Onset: 03-29-2023 05-18-2023 Episodic Residual codes; unclassified (20 sources) History of excision of intestinal structure; Translations: [Acquired absence of other specified parts of digestive tract] Onset: 08-22-2024 05-18-2023 Episodic Residual codes; unclassified (20 sources) Presence of other specified devices; Translations: [Other postprocedural status] Onset: 05-29-2023 05-29-2023 Episodic Residual codes; unclassified (20 sources) Pain; Translations: [Pain, unspecified] Onset: 01-26-2020 Resolved: 02-25-2020 02-25-2020 Episodic Residual codes; unclassified (1 source) Acquired absence of other specified parts of digestive tract; Translations: [History of bowel resection] Onset: 08-22-2024 Episodic Spondylosis; intervertebral disc disorders; other back problems (20 sources) Low back pain; Translations: [Low back pain] Onset: 11-23-2022 05-29-2023 Episodic Sprains and strains (20 sources) Low back strain; Translations: [Strain of muscle, fascia and tendon of lower back, initial encounter] Onset: 05-29-2023 05-29-2023 Episodic Superficial injury; contusion (10 sources) Contusion of left chest wall; Translations: [Contusion of left front wall of thorax, initial encounter] Onset: 08-08-2024 08-08-2024 Episodic Unclassified (19 sources) Onset: 06-18-2024 06-18-2024 Results Test Name Value Interpretation Reference Range Facility [facility] 07-01-2025 CNPN Normal [facility] Cult, Bloodon 06-23-2025 Cult, Blood Specimen Description .BLOOD 10mL Special Requests RH by MADISON in ER Culture NO GROWTH 5 DAYS Report Status FINAL 06/23/2025 [facility] Comment on above: Performed By: #### P RCAL #### [employer] [address] [place] [id number] [employer] Supervisor: Reno Duron MD Cult,Bloodon 06-23-2025 Cult,Blood Specimen Description .BLOOD 3mL AEROBIC ONLY Special Requests 3mL RAC by in ER Culture NO GROWTH 5 DAYS Report Status FINAL 06/23/2025 [facility] Comment on above: Performed By: #### P RCAL #### [employer] [address] [place], [place] [id number] [employer] Supervisor: Reno Duron MD CBC with Auto Differentialon 06-18-2025 Basophils (Bld) [#/Vol] 0.09 10*3/uL [facility] Immature granulocytes (Bld) [#/Vol] 0.11 10*3/uL [facility] Interpretation and review of laboratory results Abnormal [facility] Table8 Lymphocytes/100 WBC (Bld) 3.26 % [facility] Monocytes/100 WBC (Bld) 1.37 % High [facility] Neutrophils/100 WBC (Bld) 76 % High 36 - 65 % [facility] Nucleated RBC/100 WBC (Bld) [Ratio] 0.0 % 0.0 per 100 WBC [facility] Segmented neutrophils/100 WBC (Bld) 15.88 % High [facility] WBC other (Bld) [#/Vol] 20.8 High [facility] CBC with Diffon 06-18-2025 Basophils/100 WBC (Bld) 0 % Normal 0-2 [facility] Comment on above: Performed By: #### P RCAL #### [facility] [employer] [address] [place] [address] [employer] Supervisor: Reno Duron MD Eosinophils (Bld) [#/Vol] 0.07 10*3/uL Normal 0.00-0.44 [facility] Comment on above: Performed By: #### P RCAL #### [employer] [address] [place] [address] [employer] Supervisor: Reno Duron MD Eosinophils/100 WBC (Bld) 0 % Low 1-4 [facility] Comment on above: Performed By: #### P RCAL #### [employer] [address] [place] [id number] [employer] Supervisor: Reno Duron MD Erythrocyte distribution width (RBC) [Ratio] 13.7 % Normal 11.8-14.4 [facility] Comment on above: Performed By: #### P RCAL #### [employer] [address] [place] [id number] [employer] Supervisor: Reno Duron MD Hematocrit (Bld) [Volume fraction] 36.8 % Low 40.7-50.3 [facility] Comment on above: Performed By: #### P RCAL #### [employer] [address] [place] [address] [employer] Supervisor: Reno Duron MD Hemoglobin (Bld) [Mass/Vol] 12.0 g/dL Low 13.0-17.[address] [facility] Comment on above: Performed By: #### P RCAL #### [address] [address] [employer] Supervisor: Reno Duron MD Immature granulocytes/100 WBC (Bld) 1 % High 0 [facility] Comment on above: Performed By: #### P RCAL #### [address] [address] [employer] Supervisor: Reno Duron MD Lymphocytes/100 WBC (Bld) 16 % Low 24-43 [facility] Comment on above: Performed By: #### P RCAL #### [address] [address] [employer] Supervisor: Reno Duron MD MCH (RBC) [Entitic mass] 29.4 pg Normal 25.2-33.5 [facility] Comment on above: Performed By: #### P RCAL #### [address] [address] [employer] Supervisor: Reno Duron MD MCHC (RBC) [Mass/Vol] 32.6 g/dL Normal 28.4-34.8 [facility] Comment on above: Performed By: #### P RCAL #### [address] [address] [employer] Supervisor: Reno Duron MD MCV (RBC) [Entitic vol] 90.2 fL Normal 82.6-102.9 [facility] Comment on above: Performed By: #### P RCAL #### [address] [address] [employer] Supervisor: Reno Duron MD Monocytes/100 WBC (Bld) 7 % Normal 3-12 [facility] Comment on above: Performed By: #### P RCAL #### [address] [address] [employer] Supervisor: Reno Duron MD Platelet mean volume (Bld) [Entitic vol] 9.4 fL Normal 8.1-13.5 [facility] Comment on above: Performed By: #### P RCAL #### [address] [address] [employer] Supervisor: Reno Duron MD Platelets (Bld) [#/Vol] 356 10*3/uL Normal 138-453 [facility] Comment on above: Performed By: #### P RCAL #### [place] [address] [employer] Supervisor: Reno Duron MD RBC (Bld) [#/Vol] 4.08 10*6/uL Low 4.21-5.77 [facility] Comment on above: Performed By: #### P RCAL #### [place] [address] [employer] Supervisor: Reno Duron MD Abs. Basophil 0.09 k/uL Normal 0.00-0.20 [facility] Comment on above: Performed By: #### P RCAL #### [address] [address] [employer] Supervisor: Reno Duron MD Abs.Imm.Granulocyte 0.11 k/uL Normal 0.00-0.30 [facility] Comment on above: Performed By: #### P RCAL #### [address] [address] [employer] Supervisor: Reno Duron MD Abs.Neutrophil (Seg) 15.88 k/uL High 1.50-8.10 [facility] Comment on above: Performed By: #### P RCAL #### [address] [address] [employer] Supervisor: Reno Duron MD Lymphocytes (Bld) [#/Vol] 3.26 10*3/uL Normal 1.10-3.70 [facility] Comment on above: Performed By: #### P RCAL #### [id number] [place] [address] [employer] Supervisor: Reno Duron MD Monocytes (Bld) [#/Vol] 1.37 10*3/uL High 0.10-1.20 [facility] Comment on above: Performed By: #### P RCAL #### [address] [address] [employer] Supervisor: Reno Duron MD Neutrophil (Seg) 76 % High 36-65 [facility] Comment on above: Performed By: #### P RCAL #### [address] [address] [employer] Supervisor: Reno Duron MD NRBC Automated 0.0 per 100 WBC Normal 0.0 [facility] Comment on above: Performed By: #### P RCAL #### [address] [address] [employer] Supervisor: Reno Duron MD WBC (Bld) [#/Vol] 20.8 10*3/uL High 3.5-11.3 [facility] Comment on above: Performed By: #### P RCAL #### [address] [address] [employer] Supervisor: Reno Duron MD COVID-19, Rapidon 06-18-2025 SARS-CoV-2 (COVID-19) RdRp gene NAZ+probe Ql (Resp) Not detected Not Detected [facility] Comment on above: Rapid NAAT: The specimen is NEGATIVE for SARS-CoV-2, the novel coronavirus associated with COVID-19. The ID NOW COVID-19 assay is designed to detect the virus that causes COVID-19 in patients with signs and symptoms of infection who are suspected of COVID-19. An individual without symptoms of COVID-19 and who is not shedding SARS-CoV-2 virus would expect to have a negative (not detected) result in this assay. Negative results should be treated as presumptive and, if inconsistent with clinical signs and symptoms or necessary for patient management, should be tested with an alternative molecular assay. Negative results do not preclude SARS-CoV-2 infection and should not be used as the sole basis for patient management decisions. Methodology: Isothermal Nucleic Acid Amplification Specimen Description .NASOPHARYNGEAL SWAB [facility] CT ABDOMEN PELVIS W IV CONTR Makayla 06-18-2025 CT ABDOMEN PELVIS W IV CONTRAST EXAM: CT ABDOMEN AND PELVIS WITH IV CONTRAST 06/18/2025 05:03:38 PM TECHNIQUE: CT of the abdomen and pelvis was performed with the administration of intravenous contrast. Multiplanar reformatted images are provided for review. Automated exposure control, iterative reconstruction, and/or weight-based adjustment of the mA/kV was utilized to reduce the radiation dose to as low as reasonably achievable. COMPARISON: None available. CLINICAL HISTORY: Abd pain. FINDINGS: LOWER CHEST: Visualized lung bases are clear. LIVER: Likely surgically absent with surgical clips at the base of the cecum. GALLBLADDER AND BILE DUCTS: Stable small amount of air in the biliary tree. SPLEEN: No focal lesion mentioned. PANCREAS: No mass mentioned. No ductal dilatation mentioned. ADRENAL GLANDS: No mass mentioned. KIDNEYS, URETERS AND BLADDER: Mild bladder wall enhancement and thickening, nonspecific. No stones in the kidneys or ureters mentioned. No hydronephrosis mentioned. GI AND BOWEL: No clear appendix visualized. Minimal rectus diastasis noted. PERITONEUM AND RETROPERITONEUM: No ascites mentioned. No free air mentioned. VASCULATURE: A metallic density noted in the SMV region, stable since the prior study, unclear significance. LYMPH NODES: No lymphadenopathy mentioned. REPRODUCTIVE ORGANS: Prostate mildly prominent with brachytherapy seeds present. BONES AND SOFT TISSUES: Sequelae of prior vertebral augmentation at L3. No acute osseous abnormality mentioned. No focal soft tissue abnormality mentioned, except for minimal rectus diastasis. IMPRESSION: 1. No acute findings in the abdomen or pelvis related to the clinical history of abdominal pain. Interpreted by: Aleksandr JeanB aptiste MD Signed by: Aleksandr Jean Baptiste MD 06/18/25 Final result Normal [facility] CT Abdomen and Pelvis W cont rast Thee 06-18-2025 1. No acute findings in the abdomen or pelvis related to the clinical history of abdominal pain. [facility] RIS CONSOLIDATED EXAM: CT ABDOMEN AND PELVIS WITH IV CONTRAST 06/18/2025 05:03:38 PM TECHNIQUE: CT of the abdomen and pelvis was performed with the administration of intravenous contrast. Multiplanar reformatted images are provided for review. Automated exposure control, iterative reconstruction, and/or weight-based adjustment of the mA/kV was utilized to reduce the radiation dose to as low as reasonably achievable. COMPARISON: None available. CLINICAL HISTORY: Abd pain. FINDINGS: LOWER CHEST: Visualized lung bases are clear. LIVER: Likely surgically absent with surgical clips at the base of the cecum. GALLBLADDER AND BILE DUCTS: Stable small amount of air in the biliary tree. SPLEEN: No focal lesion mentioned. PANCREAS: No mass mentioned. No ductal dilatation mentioned. ADRENAL GLANDS: No mass mentioned. KIDNEYS, URETERS AND BLADDER: Mild bladder wall enhancement and thickening, nonspecific. No stones in the kidneys or ureters mentioned. No hydronephrosis mentioned. GI AND BOWEL: No clear appendix visualized. Minimal rectus diastasis noted. PERITONEUM AND RETROPERITONEUM: No ascites mentioned. No free air mentioned. VASCULATURE: A metallic density noted in the SMV region, stable since the prior study, unclear significance. LYMPH NODES: No lymphadenopathy mentioned. REPRODUCTIVE ORGANS: Prostate mildly prominent with brachytherapy seeds present. BONES AND SOFT TISSUES: Sequelae of prior vertebral augmentation at L3. No acute osseous abnormality mentioned. No focal soft tissue abnormality mentioned, except for minimal rectus diastasis. [facility] RIS CONSOLIDATED Aleksandr Jean Baptiste MD - 06/18/2025 EXAM: CT ABDOMEN AND PELVIS WITH IV CONTRAST 06/18/2025 05:03:38 PM TECHNIQUE: CT of the abdomen and pelvis was performed with the administration of intravenous contrast. Multiplanar reformatted images are provided for review. Automated exposure control, iterative reconstruction, and/or weight-based adjustment of the mA/kV was utilized to reduce the radiation dose to as low as reasonably achievable. COMPARISON: None available. CLINICAL HISTORY: Abd pain. FINDINGS: LOWER CHEST: Visualized lung bases are clear. LIVER: Likely surgically absent with surgical clips at the base of the cecum. GALLBLADDER AND BILE DUCTS: Stable small amount of air in the biliary tree. SPLEEN: No focal lesion mentioned. PANCREAS: No mass mentioned. No ductal dilatation mentioned. ADRENAL GLANDS: No mass mentioned. KIDNEYS, URETERS AND BLADDER: Mild bladder wall enhancement and thickening, nonspecific. No stones in the kidneys or ureters mentioned. No hydronephrosis mentioned. GI AND BOWEL: No clear appendix visualized. Minimal rectus diastasis noted. PERITONEUM AND RETROPERITONEUM: No ascites mentioned. No free air mentioned. VASCULATURE: A metallic density noted in the SMV region, stable since the prior study, unclear significance. LYMPH NODES: No lymphadenopathy mentioned. REPRODUCTIVE ORGANS: Prostate mildly prominent with brachytherapy seeds present. BONES AND SOFT TISSUES: Sequelae of prior vertebral augmentation at L3. No acute osseous abnormality mentioned. No focal soft tissue abnormality mentioned, except for minimal rectus diastasis. IMPRESSION: 1. No acute findings in the abdomen or pelvis related to the clinical history of abdominal pain. [facility] Radiology Study observation (narrative) [facility] CT Abdomen and Pelvis W cont rast IVOrdered By: Aleksandr Jean Baptiste on 06-18-2025 [facility] Work Phone: Comp Metabolic Profon 2024 Albumin [Mass/Vol] 3.9 g/dL Normal 3.5-5.2 [facility] Comment on above: Performed By: #### U RC #### [address] [address] [employer] Supervisor: Reno Duron MD [facility] [address] [place] [address] [place] [address] [employer] Supervisor: Ziggy Hilario MD Albumin/Glob Ratio 1.7 Normal 1.0-2.5 [facility] Comment on above: Performed By: #### U RC #### [address] [address] [employer] Supervisor: Reno Duron MD [facility] [address] [place] [address] [place] [address] [employer] Supervisor: Ziggy Hilario MD Alkaline Phos 96 U/L Normal 40-129 [facility] Comment on above: Performed By: #### U RC #### [address] [address] [employer] Supervisor: Reno Duron MD [address] [place] [id number] [employer] Supervisor: Ziggy Hilario MD ALT [Catalytic activity/Vol] 35 U/L Normal 50 [facility] Comment on above: Performed By: #### U RC #### [facility] [address] [place] [address] [employer] Supervisor: Reno Duron MD [facility] [address] [place], [place] [id number] [employer] Supervisor: Ziggy Hilario MD Anion gap [Moles/Vol] 13 mmol/L Normal -16 [facility] Comment on above: Performed By: #### U RC #### [facility] [address] [place] [address] [employer] Supervisor: Reno Duron MD [facility] [address] [place] [address] [place] [id number] [employer] Supervisor: Ziggy Hilario MD AST [Catalytic activity/Vol] 32 U/L Normal [facility] Comment on above: Performed By: #### U RC #### [facility] [address] [place] [address] [employer] Supervisor: Reno Duron MD [facility] [address] [place] [address] [place] [address] [employer] Supervisor: Ziggy Hilario MD Bilirubin [Mass/Vol] 0.3 mg/dL Normal 0.00-1.20 [facility] Comment on above: Performed By: #### U RC #### [facility] [address] [place] [address] [employer] Supervisor: Reno Duron MD [facility] [address] [place] [id number] [employer] Supervisor: Ziggy Hilario MD BUN/CRE Ratio 14 Normal - [facility] Comment on above: Performed By: #### U RC #### [facility] [address] [place] [address] [employer] Supervisor: Reno Duron MD [facility] [address] [place] [address] Dr. [place], [place] [id number] [employer] Supervisor: Ziggy Hilario MD Calcium [Mass/Vol] 8.9 mg/dL Normal 8.6-10.4 [facility] Comment on above: Performed By: #### U RC #### [facility] [address] [place] [address] [employer] Supervisor: Reno Duron MD [facility] [address] [place] [address] [place], [place] [id number] [employer] Supervisor: Ziggy Hilario MD Chloride [Moles/Vol] 98 mmol/L Normal 98-107 [facility] Comment on above: Performed By: #### U RC #### [facility] [address] [place] [address] [employer] Supervisor: Reno Duron MD [facility] [address] [place] [address] [place], [place] [id number] [employer] Supervisor: Ziggy Hilario MD CO2 [Moles/Vol] 23 mmol/L Normal 20-31 [facility] Comment on above: Performed By: #### U RC #### [facility] [address] [place] [address] [employer] Supervisor: Reno Duron MD [facility] [address] [place] [address] [place], [place] [id number] [employer] Supervisor: Ziggy Hilario MD Creatinine [Mass/Vol] 1.0 mg/dL Normal 0.70-1.20 [facility] Comment on above: Performed By: #### U RC #### [facility] [address] [place] [address] [employer] Supervisor: Reno Duron MD [facility] [address] [place] [address] [place], [place] [id number] [employer] Supervisor: Ziggy Hilario MD GFR/1.73 sq M.predicted among non-blacks MDRD (S/P/Bld) [Vol rate/Area] 88 mL/min/{1.73_m2} Normal >60 [facility] Comment on above: Result Comment: These results [...] renal tubular secretion. Performed By: #### U RC #### [address] [address] [employer] Supervisor: Reno Duron MD [facility] [address] [place] [address] [place] [address] [employer] Supervisor: Ziggy Hilario MD Glucose [Mass/Vol] 230 mg/dL High 74-99 [facility] Comment on above: Performed By: #### U RC #### [address] [address] [employer] Supervisor: Reno Duron MD [facility] [address] [place] [address] [place] [address] [employer] Supervisor: Ziggy Hilario MD Potassium [Moles/Vol] 4.4 mmol/L Normal 3.7-5.3 [facility] Comment on above: Performed By: #### U RC #### [address] [address] [employer] Supervisor: Reno Duron MD [address] [place], [place] [id number] [employer] Supervisor: Ziggy Hilario MD Protein [Mass/Vol] 6.2 g/dL Low 6.6-8.7 [facility] Comment on above: Performed By: #### U RC #### [address] [address] [employer] Supervisor: Reno Duron MD [facility] [address] [place] [address] [place] [address] [employer] Supervisor: Ziggy Hilario MD Sodium [Moles/Vol] 134 mmol/L Low 136-145 [facility] Comment on above: Performed By: #### U RC #### [facility] [address] [place], [place] [id number] [employer] Supervisor: Reno Duron MD [facility] [address] [place] [address] [employer] Supervisor: Ziggy Hilario MD Urea nitrogen [Mass/Vol] 14 mg/dL Normal 6-20 [facility] Comment on above: Performed By: #### U #### [facility] [address] [place] [address] [employer] Supervisor: Reno Duron MD [facility] [address] [place] [address] [employer] Supervisor: Ziggy Hilario MD Comprehensive Metabolic Pane [facility] 06-18-2025 Albumin [Mass/Vol] 3.9 g/dL 3.5 - 5.2 g/dL [facility] Albumin/Globulin [Mass ratio] 1.7 {ratio} 1.0 - 2.5 [facility] ALP [Catalytic activity/Vol] 96 U/L 40 - 129 U/L [facility] ALT [Catalytic activity/Vol] 35 U/L 10 - 50 U/L [facility] Anion gap [Moles/Vol] 13 mmol/L 9 - 16 mmol/L [facility] AST [Catalytic activity/Vol] 32 U/L 10 - 50 U/L [facility] Bilirubin [Mass/Vol] 0.3 mg/dL 0.00 - 1.20 mg/dL [facility] Calcium [Mass/Vol] 8.9 mg/dL 8.6 - 10. 4 mg/dL [facility] Chloride [Moles/Vol] 98 mmol/L 98 - 10 7 mmol/L [facility] CO2 [Moles/Vol] 23 mmol/L 20 - 31 mmol/L [facility] Creatinine [Mass/Vol] 1.0 mg/dL 0.70 - 1.20 mg/dL [facility] Est, Glom Filt Rate 88 - PINF [facility] Comment on above: These results are not [...] that affects renal tubular secretion. Glucose [Mass/Vol] 230 mg/dL High 74 - 99 mg/dL [facility] Potassium [Moles/Vol] 4.4 mmol/L 3.7 - 5.3 mmol/L [facility] Protein [Mass/Vol] 6.2 g/dL Low 6.6 - 8.7 g/dL [facility] Sodium [Moles/Vol] 134 mmol/L Low 136 - 145 mmol/L [facility] Urea nitrogen [Mass/Vol] 14 mg/dL 6 - 20 mg/dL [facility] Urea nitrogen/Creatinine [Mass ratio] 14 mg/mg 9 - 20 [facility] Flu A/B Ag Detectionon 06-18 Flu A Ag Detection Negative Normal NEG [facility] Comment on above: Result Comment: for Influenza A Antigen Performed By: #### U RC #### [facility] [employer] [address] [place], [place] [id number] [employer] Supervisor: Reno Duron MD [facility] [address] [place] [address] [place] [address] [employer] Supervisor: Ziggy Hilario MD Flu B Ag Detection Negative Normal NEG [facility] Comment on above: Result Comment: for Influenza B Antigen. Performed By: #### U RC #### [facility] [employer] [address] [place] [address] [employer] Supervisor: Reno Duron MD [facility] [address] [place] [address] [place] [address] [employer] Supervisor: Ziggy Hilario MD Lactate, Sepsison 06-18-2025 Interpretation and review of laboratory results Abnormal [facility] Lactate (BldV) [Moles/Vol] 2.1 mmol/L High 0.5 - 1.9 mmol/L [facility] Lactic Acid, Sepsis 2.1 mmol/L High 0.5-1.9 [facility] Comment on above: Performed By: #### P RCAL #### [address] [id number] [employer] Supervisor: Reno Duron MD Lactate (BldV) [Moles/Vol] 1.8 mmol/L 0.5 - 1.9 mmol/L [facility] Lactic Acid, Sepsis 1.8 mmol/L Normal 0.5-1.9 [facility] Comment on above: Performed By: #### U RC #### [address] [id number] [employer] Supervisor: Reno Duron MD [address] [place] [id number] [employer] Supervisor: Ziggy Hilario MD Lactic Acidon 06-18-2025 Lactate (BldV) [Moles/Vol] 1.3 mmol/L 0.5 - 2.2 mmol/L [facility] Lactate [Moles/Vol] 1.3 mmol/L Normal 0.5-2.2 [facility] Comment on above: Performed By: #### C MPX, CDP #### [facility] [address] [place] [address] Dr. [place] [id number] [employer] Supervisor: Ziggy Hilario MD Lipaseon 06-18-2025 Lipase [Catalytic activity/Vol] 7 U/L Low 13 - 60 U/L [facility] Lipase [Catalytic activity/Vol] 7 U/L Low 13-60 [facility] Comment on above: Performed By: #### U RC #### [address] [id number] [employer] Supervisor: Reno Duron MD [facility] [address] [place] [address] [place] [address] [employer] Supervisor: Ziggy Hilario MD No Panel Informationon 06-18 Interpretation and review of laboratory results Abnormal [facility] Portable XR Chest AP single viewon 06-18-2025 1. Small patchy opac ity in right midlung, concerning for pneumonia. 2. Right posterior sixth rib fracture. [facility] RIS CONSOLIDATED EXAM: 1 VIEW XRAY OF THE CHEST 06/18/2025 04:28:40 PM COMPARISON: 05/30/2025 CLINICAL HISTORY: r/o pna. FINDINGS: LUNGS AND PLEURA: Small patchy opacity in right midlung. No pulmonary edema. No pleural effusion. No pneumothorax. HEART AND MEDIASTINUM: No acute abnormality of the cardiac and mediastinal silhouettes. BONES AND SOFT TISSUES: Right posterior sixth rib fracture. Vertebroplasty changes in thoracic spine. Sternal plate and screws noted. Spinal stimulator noted. [facility] RIS CONSOLIDATED Tommy Guerra D O - 06/18/2025 EXAM: 1 VIEW XRAY OF THE CHEST 06/18/2025 04:28:40 PM COMPARISON: 05/30/2025 CLINICAL HISTORY: r/o pna. FINDINGS: LUNGS AND PLEURA: Small patchy opacity in right midlung. No pulmonary edema. No pleural effusion. No pneumothorax. HEART AND MEDIASTINUM: No acute abnormality of the cardiac and mediastinal silhouettes. BONES AND SOFT TISSUES: Right posterior sixth rib fracture. Vertebroplasty changes in thoracic spine. Sternal plate and screws noted. Spinal stimulator noted. IMPRESSION: 1. Small patchy opacity in right midlung, concerning for pneumonia. 2. Right posterior sixth rib fracture. [facility] Radiology Study observation (narrative) [facility] Portable XR Chest AP single viewOrdered By: Tommy Guerra on 06-18-2025 [facility] Work Phone: Rapid influenza A/B antigens on 06-18-2025 FLUAV Ag Ql (Unsp spec) Negative NEGATIVE [facility] Comment on above: for Influenza A Anti gen FLUBV Ag Ql (Unsp spec) Negative NEGATIVE [facility] Comment on above: for Influenza B Anti gen. [facility] Resp Viral Panelon 5 Adenovirus Not detected Normal [facility] Comment on above: Performed By: #### R CHANGE PERSON #### [facility] [address] [place] [address] [employer] Supervisor: Reno Duron MD [facility] [address] [place] [address] [place] [address] [employer] Supervisor: MD Rikki Mariodet.[email or web address] Not detected Normal [facility] Comment on above: Performed By: #### R CHANGE PERSON #### [address] [address] [employer] Supervisor: Reno Duron MD [facility] [address] [place] [address] [place] [address] [employer] Supervisor: Ziggy Hilario MD Bordetella pertussis Not detected Normal [facility] Comment on above: Performed By: #### R CHANGE PERSON #### [address] [address] [employer] Supervisor: Reno Duron MD [facility] [address] [place] [address] [place] [address] [employer] Supervisor: Ziggy Hilario MD Chlamyd.pneumoniae Not detected [facility] Comment on above: Performed By: #### R CHANGE PERSON #### [address] [address] [employer] Supervisor: Reno Duron MD [facility] [address] [place] [address] [place] [address] [employer] Supervisor: Ziggy Hilario MD Coronavirus 229E Not detected [facility] Comment on above: Performed By: #### R CHANGE PERSON #### [address] [address] [employer] Supervisor: Reno Duron MD [facility] [address] [place] [address] [place] [address] [employer] Supervisor: Ziggy Hilario MD Coronavirus HKU1 Not detected [facility] Comment on above: Performed By: #### R CHANGE PERSON #### [place] [id number] [place] [address] [employer] Supervisor: Reno Duron MD [facility] [address] [place] [address] [place] [address] [employer] Supervisor: Ziggy Hilario MD Coronavirus NL63 Not detected [facility] Comment on above: Performed By: #### R CHANGE PERSON #### [address] [address] [employer] Supervisor: Reno Duron MD [facility] [address] [place] [address] [place] [address] [employer] Supervisor: Ziggy Hilario MD Coronavirus OC43 Not detected [facility] Comment on above: Performed By: #### R CHANGE PERSON #### [address] [address] [employer] Supervisor: Reno Duron MD [facility] [address] [place] [address] [place] [address] [employer] Supervisor: Ziggy Hilairo MD Human Metapneumo Not detected [facility] Comment on above: Performed By: #### R CHANGE PERSON #### [address] [address] [employer] Supervisor: Reno Duron MD [facility] [address] [place] [address] [place] [address] [employer] Supervisor: Ziggy Hilario MD Influenza A Not detected [facility] Comment on above: Performed By: #### R CHANGE PERSON #### [address] [address] [employer] Supervisor: Reno Duron MD [facility] [address] [place] [address] [place] [address] [employer] Supervisor: Ziggy Hilario MD Influenza B Not detected Normal [facility] Comment on above: Performed By: #### R CHANGE PERSON #### [facility] [address] [place] [address] [employer] Supervisor: Reno Duron MD [facility] [address] [place] [address] Dr. [place], [place] [id number] [employer] Supervisor: Ziggy Hilario MD Mycoplas.pneumoniae Not detected Normal [facility] Comment on above: Result Comment: Perf ormed by multiplexed nucleic acid assay. Performed By: #### R CHANGE PERSON #### [facility] [address] [place] [address] [employer] Supervisor: Reno Duron MD [facility] [address] [place] [address] Dr. [place], [place] [id number] [employer] Supervisor: Ziggy Hilario MD Parainfluenza 1 Not detected [facility] Comment on above: Performed By: #### R CHANGE PERSON #### [facility] [address] [place] [address] [employer] Supervisor: Reno Duron MD [facility] [address] [place] [address] Dr. [place], [place] [id number] [employer] Supervisor: Ziggy Hilario MD Parainfluenza 2 Not detected [facility] Comment on above: Performed By: #### R CHANGE PERSON #### [facility] [address] [place] [address] [employer] Supervisor: Reno Duron MD [facility] [address] [place] [address] [place] [address] [employer] Supervisor: Ziggy Hilario MD Parainfluenza 3 Not detected [facility] Comment on above: Performed By: #### R CHANGE PERSON #### [facility] [address] [place] [address] [employer] Supervisor: Reno Duron MD [facility] [address] [place] [address] Dr. [place], [place] [phone] [employer] Supervisor: Ziggy Hilario MD Parainfluenza 4 Not detected Normal [facility] Comment on above: Performed By: #### R CHANGE PERSON #### [place] [id number] [place] [address] [employer] Supervisor: Reno Duron MD [address] [place], [place] [id number] [employer] Supervisor: Ziggy Hilario MD Resp Syncytial Virus Not detected Normal [facility] Comment on above: Performed By: #### R CHANGE PERSON #### [address] [address] [employer] Supervisor: Reno Duron MD [address] [place] [id number] [employer] Supervisor: Ziggy Hilario MD Rhino/Enterovirus Not detected [facility] Comment on above: Performed By: #### R CHANGE PERSON #### [address] [address] [employer] Supervisor: Reno Duron MD [address] [place] [id number] [employer] Supervisor: Ziggy Hilario MD SARS-CoV-2 (COVID-19) RNA NAZ+probe Ql (Unsp spec) Not detected [facility] Comment on above: Performed By: #### R CHANGE PERSON #### [address] [address] [employer] Supervisor: Reno Duron MD [facility] [address] [place] [address] Dr. [place] [id number] [employer] Supervisor: Ziggy Hilario MD Source: .NASOPHARYNGEAL SWAB [facility] Comment on above: Performed By: #### R CHANGE PERSON #### [address] [address] [employer] Supervisor: Reno Duron MD [facility] [address] [place] [address] [place] [address] [employer] Supervisor: Ziggy Hilario MD [id number] 06-18-2025 SARS-CoV-2 (COVID-19) RNA NAZ+probe Ql (Unsp spec) Not detected Normal NOTDET [facility] Comment on above: Result Comment: Rapid NAAT: The specimen is NEGATIVE for SARS-CoV-2, the novel coronavirus associated with COVID-19. The ID NOW COVID-19 assay is designed to detect the virus that causes COVID-19 in patients with signs and symptoms of infection who are suspected of COVID-19. An individual without symptoms of COVID-19 and who is not shedding SARS-CoV-2 virus would expect to have a negative (not detected) result in this assay. Negative results should be treated as presumptive and, if inconsistent with clinical signs and symptoms or necessary for patient management, should be tested with an alternative molecular assay. Negative results do not preclude SARS-CoV-2 infection and should not be used as the sole basis for patient management decisions. Methodology: Isothermal Nucleic Acid Amplification Performed By: #### C OVRB #### [address] [place] [address] [employer] Supervisor: Ziggy Hilario MD Troponinon 06-18-2025 Troponin I.cardiac High sensitivity method [Mass/Vol] 18 ng/L 0 - 22 ng/L [facility] Comment on above: High Sensitivity Tro ponin values cannot be compared with other Troponin methodologies. Troponin, High Sens 18 ng/L Normal 0-22 [facility] Comment on above: Result Comment: High Sensitivity Troponin values cannot be compared with other Troponin methodologies. Performed By: #### U RC #### [facility] [employer] [address] [place] [address] [employer] Supervisor: Reno Duron MD [facility] [address] [place] [address] [place] [address] [employer] Supervisor: Ziggy Hilario MD XR CHEST PORTABLEon 06-18-20 25 XR CHEST PORTABLE EXAM: 1 VIEW XRAY OF THE CHEST 06/18/2025 04:28:40 PM COMPARISON: 05/30/2025 CLINICAL HISTORY: r/o pna. FINDINGS: LUNGS AND PLEURA: Small patchy opacity in right midlung. No pulmonary edema. No pleural effusion. No pneumothorax. HEART AND MEDIASTINUM: No acute abnormality of the cardiac and mediastinal silhouettes. BONES AND SOFT TISSUES: Right posterior sixth rib fracture. Vertebroplasty changes in thoracic spine. Sternal plate and screws noted. Spinal stimulator noted. IMPRESSION: 1. Small patchy opacity in right midlung, concerning for pneumonia. 2. Right posterior sixth rib fracture. Interpreted by: Tommy Guerra DO Signed by: Tommy Guerra DO 06/18/25 Final result Normal [facility] CNPNon 06-12-2025 CNPN Normal [facility] Glucose,Whole Bloodon 2024 Glucose [Mass/Vol] 154 mg/dL High 75-110 [facility] Glucose,Whole Bloodon 2024 Glucose [Mass/Vol] 119 mg/dL High 75-110 [facility] Glucose [Mass/Vol] 203 mg/dL High 75-110 [facility] Glucose [Mass/Vol] 321 mg/dL High 75-110 [facility] Glucose [Mass/Vol] 150 mg/dL High 75-110 [facility] Glucose [Mass/Vol] 186 mg/dL High 75-110 [facility] Lipid Profileon 06-02-2025 Cholesterol [Mass/Vol] 168 mg/dL Normal 0-199 [facility] Comment on above: Result Comment: Cholesterol Guidelines: <200 Desirable 200-240 Borderline >240 Undesirable Performed By: #### L IPR ####[facility] [address] [place] [address] [facility] Director: Maxi Plata DO Cholesterol in HDL [Mass/Vol] 49 mg/dL Normal >40 [facility] Comment on above: Result Comment: HDL Guidelines: <40 Undesirable 40-59 Borderline >59 Desirable Performed By: #### L IPR ####[facility] [address] [place] [address] lab Director: Maxi Plata DO Cholesterol in LDL [Mass/Vol] 95 mg/dL Normal 0-100 [facility] Comment on above: Result Comment: LDL Guidelines: <100 Desirable 100-129 Near to/above Desirable 130-159 Borderline >159 Undesirable Direct (measured) LDL and calculated LDL are not interchangeable tests. Performed By: #### L IPR ####[facility] [address] [facility] [place] [address] Lab Director: Maxi Plata DO Cholesterol.total/Ch olesterol in HDL [Mass ratio] 3.4 {ratio} Normal [facility] Comment on above: Performed By: #### L IPR ####[facility] Dhc[address] [facility] [place] [address] Lab Director: Maxi Plata DO Triglyceride [Mass/Vol] 118 mg/dL Normal 0-149 [facility] Comment on above: Result Comment: Triglyceride Guidelines: <150 Desirable 150-199 Borderline 200-499 High >499 Very high Based on AHA Guidelines for fasting triglyceride, July 2012. Performed By: #### L IPR ####[facility] [address] [facility] [place] [address] Lab Director: Maxi Plata DO Glucose,Whole Bloodon 2024 Glucose [Mass/Vol] 170 mg/dL High 75-110 [facility] Glucose [Mass/Vol] 141 mg/dL High 75-110 [facility] Glucose [Mass/Vol] 221 mg/dL High 75-110 [facility] Glucose [Mass/Vol] 320 mg/dL High 75-110 [facility] Glucose [Mass/Vol] 201 mg/dL High 75-110 [facility] Glucose [Mass/Vol] 208 mg/dL High 75-110 [facility] Glucose [Mass/Vol] 281 mg/dL High 75-110 [facility] Hepatitis Acute [facility] 06-01 Hep A Ab,IgM Non-Reactive Normal NR [facility] Comment on above: Performed By: #### L IVP #### [facility] [address] [place] [address] [employer] Supervisor: Maxi Plata DO #### PHEP #### [address] [address] [employer] Supervisor: Reno Duron MD Hep B Core Ab,IgM Non-Reactive Normal NR [facility] Comment on above: Performed By: #### L IVP #### [facility] [address] [place] [address] [employer] Supervisor: Maxi Plata DO #### PHEP #### [address] [address] [employer] Supervisor: Reno Duron MD Hep B Surf Ag Non-Reactive Normal NR [facility] Comment on above: Performed By: #### L IVP #### [facility] [address] [place] [address] [employer] Supervisor: Maxi Plata DO #### PHEP #### [address] [address] [employer] Supervisor: Reno Duron MD Hep C Ab Non-Reactive Normal [facility] Comment on above: Result Comment: [...] HCV RNA by PCR. Performed By: #### L IVP #### [facility] [address] [place] [address] [employer] Supervisor: Maxi Plata DO #### PHEP #### [address] [address] [employer] Supervisor: Reno Duron MD Liver Profileon 06-01-2025 Albumin [Mass/Vol] 4.5 g/dL Normal 3.5-5.2 [facility] Comment on above: Performed By: #### L IVP #### [facility] [address] [place] [address] [employer] Supervisor: Maxi Plata DO #### PHEP #### [address] [address] [employer] Supervisor: Reno Duron MD Alkaline Phos 118 U/L Normal 40-129 [facility] Comment on above: Performed By: #### L IVP #### [facility] [address] [place] [address] [employer] Supervisor: Maxi Plata DO #### PHEP #### [address] [address] [employer] Supervisor: Reno Duron MD ALT [Catalytic activity/Vol] 90 U/L High 10-50 [facility] Comment on above: Performed By: #### L IVP #### [facility] [address] [place] [address] [employer] Supervisor: Maxi Plata DO #### PHEP #### [address] [address] [employer] Supervisor: Reno Duron MD AST [Catalytic activity/Vol] 76 U/L High 10-50 [facility] Comment on above: Result Comment: Spec imen hemolysis has exceeded the interference as defined by Gwyn. Value may be falsely increased. Suggest recollection if clinically indicated. Performed By: #### L IVP #### [facility] [address] [place] [address] [employer] Supervisor: Maxi Plata DO #### PHEP #### [address] [address] [employer] Supervisor: Reno Duron MD Bilirubin [Mass/Vol] 0.4 mg/dL Normal 0.0-1.2 [facility] Comment on above: Performed By: #### L IVP #### [facility] [address] [place] [address] [employer] Supervisor: Maxi Plata DO #### PHEP #### [address] [address] [employer] Supervisor: Reno Duron MD Bilirubin, Indirect Can not be calculated Normal 0.0-1 .0 [facility] Comment on above: Performed By: #### L IVP #### [facility] [address] [place] [address] [employer] Supervisor: Maxi Plata DO #### PHEP #### [address] [address] [employer] Supervisor: Reno Duron MD Bilirubin.indirect [Mass/Vol] mg/dL Normal 0.0-0.3 [facility] Comment on above: Result Comment: Spec imen hemolysis has exceeded the interference as defined by Gwyn. Value may be falsely increased. Suggest recollection if clinically indicated. Performed By: #### L IVP #### [facility] [address] [place] [address] [employer] Supervisor: Maxi Plata DO #### PHEP #### [address] [address] [employer] Supervisor: Reno Duron MD Protein [Mass/Vol] 6.9 g/dL Normal 6.6-8.7 [facility] Comment on above: Performed By: #### L IVP #### [facility] [address] [place] [address] [employer] Supervisor: Maxi Plata DO #### PHEP #### [address], [place] [id number] [employer] Supervisor: Reno Duron MD Cult,Bloodon 05-31-2025 Cult,Blood Specimen Description .BLOOD Special Requests 20ML LAC Culture NO GROWTH 5 DAYS Report Status FINAL 05/31/2025 Normal [facility] Comment on above: Performed By: #### C MPX, CDP #### [facility] [address] [place] [address] [place] [address] [employer] Supervisor: Ziggy Hilario MD Glucose,Whole Bloodon 2024 Glucose [Mass/Vol] 356 mg/dL High 75-110 [facility] Glucose [Mass/Vol] 355 mg/dL High 75-110 [facility] Glucose [Mass/Vol] 362 mg/dL High 75-110 [facility] Glucose [Mass/Vol] 220 mg/dL High 75-110 [facility] Glucose [Mass/Vol] 93 mg/dL Normal 75-110 [facility] Acetaminophenon 05-30-2025 Acetaminophen [Mass/Vol] ug/mL Low 10-30 [facility] Comment on above: Performed By: #### U RC #### [address] [id number] [employer] Supervisor: Reno Duron MD [facility] [address] [place] [address] [place] [address] [employer] Supervisor: Ziggy Hilario MD Acetaminophen Levelon 2024 Acetaminophen [Mass/Vol] ug/mL Low 10 - 30 ug/mL [facility] Interpretation and review of laboratory results Abnormal [facility] CBC with Auto Differentialon 05-30-2025 Basophils (Bld) [#/Vol] 0.10 10*3/uL [facility] Basophils/100 WBC (Bld) 1 % 0 - 2 % [facility] Eosinophils (Bld) [#/Vol] 0.04 10*3/uL [facility] Eosinophils/100 WBC (Bld) 0 % Low 1 - 4 % [facility] Erythrocyte distribution width (RBC) [Ratio] 13.5 % 11.8 - 14.4 % [facility] Hematocrit (Bld) [Volume fraction] 41.8 % 40.7 - 50.3 % [facility] Hemoglobin (Bld) [Mass/Vol] 13.5 g/dL 13.0 - 17.0 g/dL [facility] Immature granulocytes (Bld) [#/Vol] 0.08 10*3/uL [facility] Immature granulocytes/100 WBC (Bld) 1 % High 0 [facility] Interpretation and review of laboratory results Abnormal [facility] Lymphocytes/100 WBC (Bld) 23 % Low 24 - 43 % [facility] Lymphocytes/100 WBC (Bld) 2.66 % [facility] MCH (RBC) [Entitic mass] 28.4 pg 25.2 - 33.5 pg [facility] MCHC (RBC) [Mass/Vol] 32.3 g/dL 28.4 - 34.8 g/dL [facility] MCV (RBC) [Entitic vol] 88.0 fL 82.6 - 102.9 fL [facility] Monocytes/100 WBC (Bld) 9 % 3 - 12 % [facility] Monocytes/100 WBC (Bld) 1.01 % [facility] Neutrophils/100 WBC (Bld) 67 % High 36 - 65 % [facility] Nucleated RBC/100 WBC (Bld) [Ratio] 0.0 % 0.0 per 100 WBC [facility] Platelet mean volume (Bld) [Entitic vol] 9.4 fL 8.1 - 13.5 fL [facility] Platelets (Bld) [#/Vol] 499 10*3/uL High [facility] RBC (Bld) [#/Vol] 4.75 10*6/uL 4.21 - 5.7 7 m/uL [facility] Segmented neutrophils/100 WBC (Bld) 7.95 % [facility] WBC other (Bld) [#/Vol] 11.8 High [facility] CBC with Diffon 05-30-2025 Abs. Basophil 0.10 k/uL Normal 0.00-0.20 [facility] Comment on above: Performed By: #### S TLPCR #### [address] [address] [employer] Supervisor: Reno Duron MD [facility] [address] [place] [address] Dr[place] [phone] [employer] Supervisor: Ziggy Hilario MD Abs.Imm.Granulocyte 0.08 k/uL Normal 0.00-0.30 [facility] Comment on above: Performed By: #### S TLPCR #### [address] [address] [employer] Supervisor: Reno Duron MD [address] [place] [id number] [employer] Supervisor: Ziggy Hilario MD Abs.Neutrophil (Seg) 7.95 k/uL Normal 1.50-8.10 [facility] Comment on above: Performed By: #### S TLPCR #### [address] [address] [employer] Supervisor: Reno Duron MD [address] [place] [address] [employer] Supervisor: Ziggy Hilario MD Basophils/100 WBC (Bld) 1 % Normal 0-2 [facility] Comment on above: Performed By: #### S TLPCR #### [address] [address] [employer] Supervisor: Reno Duron MD [facility] [address] [place] [address] [place] [id number] [employer] Supervisor: Ziggy Hilario MD Eosinophils (Bld) [#/Vol] 0.04 10*3/uL Normal 0.00-0.44 [facility] Comment on above: Performed By: #### S TLPCR #### [address] [address] [employer] Supervisor: Reno Duron MD [facility] [address] [place] [address] [place], [place] [id number] [employer] Supervisor: Ziggy Hilario MD Eosinophils/100 WBC (Bld) 0 % Low 1-4 [facility] Comment on above: Performed By: #### S TLPCR #### [address] [address] [employer] Supervisor: Reno Duron MD [facility] [address] [place] [address] Dr. [place], [place] [id number] [employer] Supervisor: Ziggy Hilario MD Erythrocyte distribution width (RBC) [Ratio] 13.5 % Normal 11.8-14.4 [facility] Comment on above: Performed By: #### S TLPCR #### [address] [address] [employer] Supervisor: Reno Duron MD [facility] [address] [place] [address] Dr. [place] [phone] [employer] Supervisor: Ziggy Hilario MD Hematocrit (Bld) [Volume fraction] 41.8 % Normal 40.7-50.3 [facility] Comment on above: Performed By: #### S TLPCR #### [address] [address] [employer] Supervisor: Reno Duron MD [facility] [address] [place] [address] Dr. [place] [phone] [employer] Supervisor: Ziggy Hilario MD Hemoglobin (Bld) [Mass/Vol] 13.5 g/dL Normal 13.0-17.0 [facility] Comment on above: Performed By: #### S TLPCR #### [address] [address] [employer] Supervisor: Reno Duron MD [facility] [address] [place] [address] Dr. [place], [place] [id number] [employer] Supervisor: Ziggy Hilario MD Immature granulocytes/100 WBC (Bld) 1 % High 0 [facility] Comment on above: Performed By: #### S TLPCR #### [place] [id number] [place] [address] [employer] Supervisor: Reno Duron MD [facility] [address] [place] [address] Dr. [place] [id number] [employer] Supervisor: Ziggy Hilario MD Lymphocytes (Bld) [#/Vol] 2.66 10*3/uL Normal 1.10-3.70 [facility] Comment on above: Performed By: #### S TLPCR #### [address] [address] [employer] Supervisor: Reno Duron MD [facility] [address] [place] [address] Dr. [place] [phone] [employer] Supervisor: Ziggy Hilario MD Lymphocytes/100 WBC (Bld) 23 % Low 24-43 [facility] Comment on above: Performed By: #### S TLPCR #### [address] [address] [employer] Supervisor: Reno Duron MD [facility] [address] [place] [address] Dr. [place] [phone] [employer] Supervisor: Ziggy Hilario MD MCH (RBC) [Entitic mass] 28.4 pg Normal 25.2-33.5 [facility] Comment on above: Performed By: #### S TLPCR #### [address] [address] [employer] Supervisor: Reno Duron MD [facility] [address] [place] [address] Dr. [place] [phone] [employer] Supervisor: Ziggy Hilario MD MCHC (RBC) [Mass/Vol] 32.3 g/dL Normal 28.4-34.8 [facility] Comment on above: Performed By: #### S TLPCR #### [address] [address] [employer] Supervisor: Reno Duron MD [facility] [address] [place] [address] [employer] Supervisor: Ziggy Hilario MD MCV (RBC) [Entitic vol] 88.0 fL Normal 82.6-102.9 [facility] Comment on above: Performed By: #### S TLPCR #### [address] [address] [employer] Supervisor: Reno Duron MD [address] [place] [phone] [employer] Supervisor: Ziggy Hilario MD Monocytes (Bld) [#/Vol] 1.01 10*3/uL Normal 0.10-1.20 [facility] Comment on above: Performed By: #### S TLPCR #### [address] [address] [employer] Supervisor: Reno Duron MD [address] [place] [phone] [employer] Supervisor: Ziggy Hilario MD Monocytes/100 WBC (Bld) 9 % Normal 3-12 [facility] Comment on above: Performed By: #### S TLPCR #### [address] [address] [employer] Supervisor: Reno Duron MD [address] [place] [phone] [employer] Supervisor: Ziggy Hilario MD Neutrophil (Seg) 67 % High 36-65 [facility] Comment on above: Performed By: #### S TLPCR #### [address] [address] [employer] Supervisor: Reno Duron MD [address] [place], [place] [phone] [employer] Supervisor: Ziggy Hilario MD NRBC Automated 0.0 per 100 WBC Normal 0.0 [facility] Comment on above: Performed By: #### S TLPCR #### [address] [place] [address] [employer] Supervisor: Reno Duron MD [facility] [address] [place] [address] [place] [address] [employer] Supervisor: Ziggy Hilario MD Platelet mean volume (Bld) [Entitic vol] 9.4 fL Normal 8.1-13.5 [facility] Comment on above: Performed By: #### S TLPCR #### [facility] [address] [place] [address] [employer] Supervisor: Reno Duron MD [address] [place] [address] [employer] Supervisor: Ziggy Hilario MD Platelets (Bld) [#/Vol] 499 10*3/uL High 138-453 [facility] Comment on above: Performed By: #### S TLPCR #### [address] [address] [employer] Supervisor: Reno Duron MD [address] [place], [place] [id number] [employer] Supervisor: Ziggy Hilario MD RBC (Bld) [#/Vol] 4.75 10*6/uL Normal 4.21-5.77 [facility] Comment on above: Performed By: #### S TLPCR #### [address] [address] [employer] Supervisor: Reno Duron MD [facility] [address] [place] [address] Dr. [place] [phone] [employer] Supervisor: Ziggy Hilario MD WBC (Bld) [#/Vol] 11.8 10*3/uL High 3.5-11.3 [facility] Comment on above: Performed By: #### S TLPCR #### [address] [address] [employer] Supervisor: Reno Duron MD [address] [place] [phone] [employer] Supervisor: Ziggy Hilario MD Comp Metabolic Profon 2024 Albumin [Mass/Vol] 4.8 g/dL Normal 3.5-5.2 [facility] Comment on above: Performed By: #### U RC #### [facility] [address] [place] [address] [employer] Supervisor: Reno Duron MD [facility] [address] [place] [address] Dr. [place], [place] [phone] [employer] Supervisor: Ziggy Hilario MD Albumin/Glob Ratio 1.7 Normal 1.0-2.5 [facility] Comment on above: Performed By: #### U RC #### [facility] [address] [place] [address] [employer] Supervisor: Reno Duron MD [facility] [address] [place] [address] Dr. [place] [phone] [employer] Supervisor: Ziggy Hilario MD Alkaline Phos 104 U/L Normal 40-129 [facility] Comment on above: Performed By: #### U RC #### [facility] [address] [place] [address] [employer] Supervisor: Reno Duron MD [address] [place], [place] [id number] [employer] Supervisor: Ziggy Hilario MD ALT [Catalytic activity/Vol] 114 U/L High 10-50 [facility] Comment on above: Performed By: #### U RC #### [facility] [address] [place] [address] [employer] Supervisor: Reno Duron MD [facility] [address] [place] [address] Dr. [place], [place] [id number] [employer] Supervisor: Ziggy Hilario MD Anion gap [Moles/Vol] 16 mmol/L Normal 9-16 [facility] Comment on above: Performed By: #### U RC #### [facility] [address] [place] [address] [employer] Supervisor: Reno Duron MD [facility] [address] [place] [address] Dr. [place], [place] [id number] [employer] Supervisor: Ziggy Hilario MD AST [Catalytic activity/Vol] 118 U/L High 10-50 [facility] Comment on above: Performed By: #### U RC #### [facility] [address] [place] [address] [employer] Supervisor: Reno Duron MD [facility] [address] [place] [address] Dr. [place], [place] [phone] [employer] Supervisor: Ziggy Hilario MD Bilirubin [Mass/Vol] 0.4 mg/dL Normal 0.00-1.20 [facility] Comment on above: Performed By: #### U RC #### [address] [address] [employer] Supervisor: Reno Duron MD [facility] [address] [place] [address] Dr. [place] [phone] [employer] Supervisor: Ziggy Hilario MD BUN/CRE Ratio 15 Normal 9-20 [facility] Comment on above: Performed By: #### U RC #### [facility] [address] [place] [address] [employer] Supervisor: Reno Duron MD [facility] [address] [place] [address] Dr. [place], [place] [phone] [employer] Supervisor: Ziggy Hilario MD Calcium [Mass/Vol] 10.0 mg/dL Normal 8.6-10.4 [facility] Comment on above: Performed By: #### U RC #### [facility] [address] [place] [address] [employer] Supervisor: Reno Duron MD [facility] [address] [place] [address] [place] [address] [employer] Supervisor: Ziggy Hilario MD Chloride [Moles/Vol] 98 mmol/L Normal 98-107 [facility] Comment on above: Performed By: #### U RC #### [facility] [address] [place] [address] [employer] Supervisor: Reno Duron MD [facility] [address] [place] [address] [place] [address] [employer] Supervisor: Ziggy Hilario MD CO2 [Moles/Vol] 21 mmol/L Normal 20-31 [facility] Comment on above: Performed By: #### U RC #### [facility] [address] [place] [address] [employer] Supervisor: Reno Duron MD [facility] [address] [place] [address] [place] [address] [employer] Supervisor: Ziggy Hilario MD Creatinine [Mass/Vol] 1.1 mg/dL Normal 0.70-1.20 [facility] Comment on above: Performed By: #### U RC #### [address] [address] [employer] Supervisor: Reno Duron MD [facility] [address] [place] [address] [place] [address] [employer] Supervisor: Ziggy Hilario MD GFR/1.73 sq M.predicted among non-blacks MDRD (S/P/Bld) [Vol rate/Area] 78 mL/min/{1.73_m2} Normal >60 [facility] Comment on above: Result Comment: These results [...] renal tubular secretion. Performed By: #### U RC #### [facility] [address] [place] [address] [employer] Supervisor: Reno Duron MD [facility] [address] [place] [address] [place] [address] [employer] Supervisor: Ziggy Hilario MD Glucose [Mass/Vol] 97 mg/dL Normal 74-99 [facility] Comment on above: Performed By: #### U RC #### [facility] [address] [place] [address] [employer] Supervisor: Reno Duron MD [facility] [address] [place] [address] [place] [address] [employer] Supervisor: Ziggy Hilario MD Potassium [Moles/Vol] 4.3 mmol/L Normal 3.7-5.3 [facility] Comment on above: Performed By: #### U RC #### [facility] [address] [place] [address] [employer] Supervisor: Reno Duron MD [facility] [address] [place] [address] Dr. [place], [place] [id number] [employer] Supervisor: Ziggy Hilario MD Protein [Mass/Vol] 7.6 g/dL Normal 6.6-8.7 [facility] Comment on above: Performed By: #### U RC #### [facility] [address] [place] [address] [employer] Supervisor: Reno Duron MD [facility] [address] [place] [address] Dr. [place], [place] [id number] [employer] Supervisor: Ziggy Hilario MD Sodium [Moles/Vol] 135 mmol/L Low 136-145 [facility] Comment on above: Performed By: #### U RC #### [facility] [address] [place] [address] [employer] Supervisor: Reno Duron MD [facility] [address] [place] [address] [place] [address] [employer] Supervisor: Ziggy Hilario MD Urea nitrogen [Mass/Vol] 16 mg/dL Normal 6-20 [facility] Comment on above: Performed By: #### U RC #### [facility] [address] [place] [address] [employer] Supervisor: Reno Duron MD [facility] [address] [place] [address] [employer] Supervisor: Ziggy Hilario MD Comprehensive Metabolic Pane [facility] 05-30-2025 Albumin [Mass/Vol] 4.8 g/dL 3.5 - 5.2 g/dL [facility] Albumin/Globulin [Mass ratio] 1.7 {ratio} 1.0 - 2.5 [facility] ALP [Catalytic activity/Vol] 104 U/L 40 - 129 U/L [facility] ALT [Catalytic activity/Vol] 114 U/L High 10 - 50 U/L [facility] Anion gap [Moles/Vol] 16 mmol/L 9 - 16 mmol/L [facility] AST [Catalytic activity/Vol] 118 U/L High 10 - 50 U/L [facility] Bilirubin [Mass/Vol] 0.4 mg/dL 0.00 - 1.20 mg/dL [facility] Calcium [Mass/Vol] 10.0 mg/dL 8.6 - 10. 4 mg/dL [facility] Chloride [Moles/Vol] 98 mmol/L 98 - 10 7 mmol/L [facility] CO2 [Moles/Vol] 21 mmol/L 20 - 31 mmol/L [facility] Creatinine [Mass/Vol] 1.1 mg/dL 0.70 - 1.20 mg/dL [facility] Est, Glom Filt Rate 78 - PINF [facility] Comment on above: These results are not [...] that affects renal tubular secretion. Glucose [Mass/Vol] 97 mg/dL 74 - 99 mg/dL [facility] Interpretation and review of laboratory results Abnormal [facility] Potassium [Moles/Vol] 4.3 mmol/L 3.7 - 5.3 mmol/L [facility] Protein [Mass/Vol] 7.6 g/dL 6.6 - 8.7 g/dL [facility] Sodium [Moles/Vol] 135 mmol/L Low 136 - 145 mmol/L [facility] Urea nitrogen [Mass/Vol] 16 mg/dL 6 - 20 mg/dL [facility] Urea nitrogen/Creatinine [Mass ratio] 15 mg/mg 9 - 20 [facility] Cult, Bloodon 05-30-2025 Cult, Blood Specimen Description .BLOOD Special Requests 12ML RFA Culture POSITIVE Blood Culture DIRECT GRAM STAIN FROM BOTTLE: GRAM POSITIVE COCCI IN CLUSTERS Targeted Organisms Not Detected: Staphylococcus , Streptococcus , or Enterococcus species Culture Results to Follow Methodology- Polymerase Chain Reaction (PCR) MICROCOCCUS SPECIES A single positive blood culture of coagulase negative Staphylocci, diphtheroids,micrococci, Cutibacterium, viridans Streptocci, Bacillus, or Lactobacillus species should be interpreted with caution and viewed as a likely skin contaminant. (NOTE) Direct Gram Stain from bottle result called to and read back by: PT DISCHARGED TO HOME. TRIED PCP, ANSWERING SERVICE MULTIPLE TIMES, NO ANSWER KR Direct Gram Stain from bottle result called to and read back by: RAMANA ABARCA CMA AT [email or web address]'S OFFICE [id number] AT 0849 RB TT Report Status FINAL 05/30/2025 Normal [facility] Comment on above: Performed By: #### C MPX, CDP #### [facility] [address] [place] [address] [place] [address] [employer] Supervisor: Ziggy Hilario MD Drug Scr, Abuse, Uron 2024 Amphetamine(s),Ur Negative Normal NEG [facility] Comment on above: Result Comment: Cuto ff: 1000 ng/mL Performed By: #### U RC #### [facility] [address] [place] [address] [employer] Supervisor: Reno Duron MD [facility] [address] [place] [address] [place] [address] [employer] Supervisor: Ziggy Hilario MD Barbiturate(s),Ur Negative Normal NEG [facility] Comment on above: Result Comment: Cuto ff: 200 ng/ml Performed By: #### U RC #### [address] [address] [employer] Supervisor: Reno Duron MD [facility] [address] [place] [address] Dr. [place], [place] [id number] [employer] Supervisor: Ziggy Hilario MD Benzodiazepine(s) Negative Normal NEG [facility] Comment on above: Result Comment: Cuto ff: 200 ng/ml Performed By: #### U RC #### [address] [address] [employer] Supervisor: Reno Duron MD [facility] [address] [place] [address] Dr. [place], [place] [id number] [employer] Supervisor: Ziggy Hilario MD Cannabinoid(s),Ur Negative Normal NEG [facility] Comment on above: Result Comment: Cuto ff: 50 ng/ml Performed By: #### U RC #### [address] [address] [employer] Supervisor: Reno Duron MD [facility] [address] [place] [address] [place] [address] [employer] Supervisor: Ziggy Hilario MD Cocaine Metabolite Negative Crowder NEG [facility] Comment on above: Result Comment: Cuto ff: 300 ng/ml Performed By: #### U RC #### [address] [address] [employer] Supervisor: Reno Duron MD [facility] [address] [place] [address] [place] [address] [employer] Supervisor: Ziggy Hilario MD Fentanyl, Urine Negative Normal NEG [facility] Comment on above: Result Comment: Cuto ff: 5 ng/ml Performed By: #### U RC #### [address] [address] [employer] Supervisor: Reno Duron MD [facility] [address] [place] [address] Dr. [place] [id number] [employer] Supervisor: Ziggy Hilario MD Interpretive Info This method is a screening test to detect only these drug classes as part of a Normal [facility] Comment on above: Result Comment: medi bright workup. Confirmatory testing by another method should be ordered if clinically indicated. Performed By: #### U RC #### [address] [address] [employer] Supervisor: Reno Duron MD [address] [place], [place] [id number] [employer] Supervisor: Ziggy Hilario MD Methadone Ql (U) Negative Normal NEG [facility] Comment on above: Result Comment: Cuto ff: 300 ng/ml Performed By: #### U RC #### [address] [address] [employer] Supervisor: Reno Duron MD [address] [place] [id number] [employer] Supervisor: Ziggy Hilario MD Opiate(s), Ur Negative Normal NEG [facility] Comment on above: Result Comment: Cuto ff: 300 ng/ml Note: The Opiate screen is not intended to detect Oxycodone. Performed By: #### U RC #### [address] [address] [employer] Supervisor: Reno Duron MD [facility] [address] [place] [address] Dr. [place] [id number] [employer] Supervisor: Ziggy Hilario MD Oxycodone, Urine Negative Normal NEG [facility] Comment on above: Result Comment: Cuto ff: 100 ng/ml Performed By: #### U RC #### [address] [address] [employer] Supervisor: Reno Duron MD [facility] [address] [place] [address] Dr. [place], [place] [id number] [employer] Supervisor: Ziggy Hilario MD Phencyclidine, Ur Negative Normal NEG [facility] Comment on above: Result Comment: Cuto ff: 25 ng/ml Performed By: #### U #### [facility] [employer] [address] [place], [place] [id number] [employer] Supervisor: Reno Duron MD [facility] [address] [place] [address] [employer] Supervisor: Ziggy Hilario MD EKG 12 LeadOrdered By: Rudolph Strong on 05-30-2025 Atrial Rate 77 BPM [employer] Work Phone: P Burtrum 48 degrees [employer] Work Phone: P-R Interval 146 ms [employer] Program Phone: Q-T Interval 382 ms [employer] Program Phone: QRS Duration 94 ms [employer] Work Phone: QTc Calculation (Bazett) 432 ms [employer] Work Phone: R Burtrum -2 degrees [employer] Work Phone: T Burtrum 33 degrees [employer] Work Phone: Ventricular Rate 77 BPM [facility] [employer] Work Phone: [employer] Work Phone: EKG 12 Leadon 05-30-2025 Normal sinus rhythm Normal ECG When compared with ECG of 17-Mar-2024 14:02, Sinus rhythm has replaced Electronic ventricular pacemaker Confirmed by Uli Strong ([id number]) on 05/30/2025 10:55:51 PM [facility] Uli Strnog MD - 05/30/2025 Normal sinus rhythm Normal ECG When compared with ECG of 17-Mar-2024 14:02, Sinus rhythm has replaced Electronic ventricular pacemaker Confirmed by Uli Strong ([id number]) on 05/30/2025 10:55:51 PM [employer] Ethanolon 05-30-2025 Ethanol percent 0.001 % NINF - 0.010 % [facility] Ethanolamine [Mass/Vol] <10 NINF - 10 mg/dL [facility] Ethanol Alcoholon 05-30-2025 Ethanol [Mass/Vol] mg/dL Normal <10 [facility] Comment on above: Performed By: #### U RC #### [place] [id number] [place], [place] [id number] [employer] Supervisor: Reno Duron MD [facility] [address] [place] [address] Dr. [place] [id number] [employer] Supervisor: Ziggy Hilario MD Ethanol percent 0.001 % Normal <0.010 [facility] Comment on above: Performed By: #### U RC #### [address] [id number] [employer] Supervisor: Reno Duron MD [facility] [address] [place] [address] Dr. [place] [id number] [employer] Supervisor: Ziggy Hilario MD No Panel Informationon 05-30 [facility] Salicylateon 05-30-2025 Salicylates [Mass/Vol] mg/dL 0.0 - 10.0 mg/dL [facility] Salicylate <0.5 Normal 0.0-10.0 [facility] Comment on above: Performed By: #### U RC #### [address] [id number] [employer] Supervisor: Reno Duron MD [facility] [address] [place] [address] [place] [address] [employer] Supervisor: Ziggy Hilario MD Urine Drug Screenon 05-30-20 25 Amphetamines Ql (U) Negative NEGATIVE [facility] Comment on above: Cutoff: 1000 ng/mL Barbiturates Screen Ql (U) Negative NEGATIVE [facility] Comment on above: Cutoff: 200 ng/ml Benzodiazepines Ql (U) Negative NEGATIVE [facility] Comment on above: Cutoff: 200 ng/ml Cannabinoids Screen Ql (U) Negative NEGATIVE [facility] Comment on above: Cutoff: 50 ng/ml Cocaine Ql (U) Negative NEGATIVE [facility] Comment on above: Cutoff: 300 ng/ml fentaNYL Ql (U) Negative NEGATIVE [facility] [employer] Comment on above: Cutoff: 5 ng/ml Methadone Ql (U) Negative NEGATIVE [facility] Comment on above: Cutoff: 300 ng/ml Opiates Screen Ql (U) Negative NEGATIVE [facility] [employer] Comment on above: Cutoff: 300 ng/ml Note: The Opiate screen is not intended to detect Oxycodone. oxyCODONE Ql (U) Negative NEGATIVE [facility] [employer] Comment on above: Cutoff: 100 ng/ml Phencyclidine Ql (U) Negative NEGATIVE [facility] [employer] Comment on above: Cutoff: 25 ng/ml Test Information This method is a screening test to detect only these drug classes as part of a medical workup. Confirmatory testing by another method should be ordered if clinically indicated. [facility] [employer] XR CHEST (2 VW)on 05-30-2025 XR CHEST (2 VW) EXAM: 2 VIEW(S) XRAY OF THE CHEST 05/30/2025 05:32:22 PM COMPARISON: 05/25/2025 CLINICAL HISTORY: Recent pneumon FINDINGS: LUNGS AND PLEURA: No focal pulmonary opacity. No pulmonary edema. No pleural effusion. No pneumothorax. HEART AND MEDIASTINUM: No acute abnormality of the cardiac and mediastinal silhouettes. BONES AND SOFT TISSUES: Neurostimulator device noted. Sternal plate and screws noted. Vertebral augmentation of thoracic spine. No acute osseous abnormality. IMPRESSION: 1. No acute process. Interpreted by: Octavio Kwon IV, MD Signed by: Octavio Kwon IV, MD 05/30/25 Final result Normal [facility] XR Chest 2 Viewson 1. No acute process. [facility] RIS CONSOLIDATED EXAM: 2 VIEW(S) XRAY OF THE CHEST 05/30/2025 05:32:22 PM COMPARISON: 05/25/2025 CLINICAL HISTORY: Recent pneumon FINDINGS: LUNGS AND PLEURA: No focal pulmonary opacity. No pulmonary edema. No pleural effusion. No pneumothorax. HEART AND MEDIASTINUM: No acute abnormality of the cardiac and mediastinal silhouettes. BONES AND SOFT TISSUES: Neurostimulator device noted. Sternal plate and screws noted. Vertebral augmentation of thoracic spine. No acute osseous abnormality. [facility] Octavio Ruiz IV, MD - 05/30/2025 EXAM: 2 VIEW(S) XRAY OF THE CHEST 05/30/2025 05:32:22 PM COMPARISON: 05/25/2025 CLINICAL HISTORY: Recent pneumon FINDINGS: LUNGS AND PLEURA: No focal pulmonary opacity. No pulmonary edema. No pleural effusion. No pneumothorax. HEART AND MEDIASTINUM: No acute abnormality of the cardiac and mediastinal silhouettes. BONES AND SOFT TISSUES: Neurostimulator device noted. Sternal plate and screws noted. Vertebral augmentation of thoracic spine. No acute osseous abnormality. IMPRESSION: 1. No acute process. [facility] Radiology Study observation (narrative) [facility] XR Chest 2 ViewsOrdered By: Octavio Kwon on 05-30-2025 [facility] Work Phone: CBC auto differentialon Basophils (Bld) [#/Vol] 0.09 10*3/uL [facility] Basophils/100 WBC (Bld) 1 % 0 - 2 % [facility] Eosinophils (Bld) [#/Vol] 0.14 10*3/uL [facility] Eosinophils/100 WBC (Bld) 1 % 1 - 4 % [facility] Erythrocyte distribution width (RBC) [Ratio] 14.3 % 11.8 - 14.4 % [facility] Hematocrit (Bld) [Volume fraction] 36.4 % Low 40.7 - 50.3 % [facility] Hemoglobin (Bld) [Mass/Vol] 11.3 g/dL Low 13.0 - 17.0 g/dL [facility] Immature granulocytes (Bld) [#/Vol] 0.09 10*3/uL [facility] Immature granulocytes/100 WBC (Bld) 1 % High 0 [facility] Interpretation and review of laboratory results Abnormal [facility] Lymphocytes/100 WBC (Bld) 34 % 24 - 43 % [facility] Lymphocytes/100 WBC (Bld) 3.74 % High [facility] MCH (RBC) [Entitic mass] 29 pg 25.2 - 33.5 pg [facility] MCHC (RBC) [Mass/Vol] 31 g/dL 28.4 - 34.8 g/dL [facility] MCV (RBC) [Entitic vol] 93.3 fL 82.6 - 102.9 fL [facility] Monocytes/100 WBC (Bld) 11 % 3 - 12 % [facility] Monocytes/100 WBC (Bld) 1.16 % [facility] Neutrophils/100 WBC (Bld) 52 % 36 - 65 % [facility] Nucleated RBC/100 WBC (Bld) [Ratio] 0 % 0.0 per 100 WBC [facility] Platelet mean volume (Bld) [Entitic vol] 9.8 fL 8.1 - 13.5 fL [facility] Platelets (Bld) [#/Vol] 396 10*3/uL [facility] RBC (Bld) [#/Vol] 3.9 10*6/uL Low 4.21 - 5.7 7 m/uL [facility] Segmented neutrophils/100 WBC (Bld) 5.69 % [facility] WBC other (Bld) [#/Vol] 10.9 [facility] CBC with Diffon 05-27-2025 Abs. Basophil 0.09 k/uL Normal 0.00-0.20 [facility] Comment on above: Performed By: #### C CATE, CDP #### [facility] [address] [place] [address] [place] [address] [employer] Supervisor: Ziggy Hilario MD Abs.Imm.Granulocyte 0.09 k/uL Normal 0.00-0.30 [facility] Comment on above: Performed By: #### C CATE, CDP #### [facility] [address] [place] [address] [employer] Supervisor: Ziggy Hilario MD Abs.Neutrophil (Seg) 5.69 k/uL Normal 1.50-8.10 [facility] Comment on above: Performed By: #### C MPX, CDP #### [facility] [address] [place] [address] [place] [address] [employer] Supervisor: Ziggy Hilario MD Basophils/100 WBC (Bld) 1 % Normal 0-2 [facility] Comment on above: Performed By: #### C MPX, CDP #### [address] [place], [facility] [employer] Supervisor: Ziggy Hilario MD Eosinophils (Bld) [#/Vol] 0.14 10*3/uL Normal 0.00-0.44 [facility] Comment on above: Performed By: #### C MPX, CDP #### [address] [place], [facility] [employer] Supervisor: Ziggy Hilario MD Eosinophils/100 WBC (Bld) 1 % Normal 1-4 [facility] Comment on above: Performed By: #### C MPX, CDP #### [address] [place], [facility] [employer] Supervisor: Ziggy Hilario MD Erythrocyte distribution width (RBC) [Ratio] 14.3 % Normal 11.8-14.4 [facility] Comment on above: Performed By: #### C MPX, CDP #### [address] [place], [facility] [employer] Supervisor: Ziggy Hilario MD Hematocrit (Bld) [Volume fraction] 36.4 % Low 40.7-50.3 [facility] Comment on above: Performed By: #### C MPX, CDP #### [address] [place] [address] [employer] Supervisor: Ziggy Hilario MD Hemoglobin (Bld) [Mass/Vol] 11.3 g/dL Low 13.0-17.0 [facility] Comment on above: Performed By: #### C MPX, CDP #### [address] [place], [place] [id number] [employer] Supervisor: Ziggy Hilario MD Immature granulocytes/100 WBC (Bld) 1 % High 0 [facility] Comment on above: Performed By: #### C MPX, CDP #### [facility] [address] [place], [place] [id number] [employer] Supervisor: Ziggy Hilario MD Lymphocytes (Bld) [#/Vol] 3.74 10*3/uL High 1.10-3.70 [facility] Comment on above: Performed By: #### C MPX, CDP #### [address] [place], [place] [id number] [employer] Supervisor: Ziggy Hilario MD Lymphocytes/100 WBC (Bld) 34 % Normal 24-43 [facility] Comment on above: Performed By: #### C MPX, CDP #### [address] [place], [place] [id number] [employer] Supervisor: Ziggy Hilario MD MCH (RBC) [Entitic mass] 29.0 pg Normal 25.2-33.5 [facility] Comment on above: Performed By: #### C MPX, CDP #### [address] [place], [place] [id number] [employer] Supervisor: Ziggy Hilario MD MCHC (RBC) [Mass/Vol] 31.0 g/dL Normal 28.4-34.8 [facility] Comment on above: Performed By: #### C MPX, CDP #### [address] [place] [address] [employer] Supervisor: Ziggy Hilario MD MCV (RBC) [Entitic vol] 93.3 fL Normal 82.6-102.9 [facility] Comment on above: Performed By: #### C MPX, CDP #### [facility] [address] [place] [address] [place] [address] [employer] Supervisor: Ziggy Hilario MD Monocytes (Bld) [#/Vol] 1.16 10*3/uL Normal 0.10-1.20 [facility] Comment on above: Performed By: #### C MPX, CDP #### [facility] [address] [place] [address] [employer] Supervisor: Ziggy Hilario MD Monocytes/100 WBC (Bld) 11 % Normal 3-12 [facility] Comment on above: Performed By: #### C MPX, CDP #### [facility] [address] [place] [address] [employer] Supervisor: Ziggy Hilario MD Neutrophil (Seg) 52 % Normal 36-65 [facility] Comment on above: Performed By: #### C MPX, CDP #### [facility] [address] [place], [place] [id number] [employer] Supervisor: Ziggy Hilario MD NRBC Automated 0.0 per 100 WBC Normal 0.0 [facility] Comment on above: Performed By: #### C MPX, CDP #### [facility] [address] [place], [place] [id number] [employer] Supervisor: Ziggy Hilario MD Platelet mean volume (Bld) [Entitic vol] 9.8 fL Normal 8.1-13.5 [facility] Comment on above: Performed By: #### C MPX, CDP #### [facility] [address] [place] [address] [employer] Supervisor: Ziggy Hilario MD Platelets (Bld) [#/Vol] 396 10*3/uL Normal 138-453 [facility] Comment on above: Performed By: #### C MPX, CDP #### [facility] [address] [place] [address] [employer] Supervisor: Ziggy Hilario MD RBC (Bld) [#/Vol] 3.90 10*6/uL Low 4.21-5.77 [facility] Comment on above: Performed By: #### C MPX, CDP #### [facility] [address] [place] [address] [employer] Supervisor: Ziggy Hilario MD WBC (Bld) [#/Vol] 10.9 10*3/uL Normal 3.5-11.3 [facility] Comment on above: Performed By: #### C MPX, CDP #### [facility] [address] [place], [place] [id number] [employer] Supervisor: Ziggy Hilario MD Comp Metabolic Pr/rfx MGon 0 - Albumin [Mass/Vol] 3.9 g/dL Normal 3.5-5.2 [facility] Comment on above: Performed By: #### C MPX, CDP #### [facility] [address] [place], [place] [id number] [employer] Supervisor: Ziggy Hilario MD Albumin/Glob Ratio 1.8 Normal 1.0-2.5 [facility] Comment on above: Performed By: #### C MPX, CDP #### [facility] [address] [place] [address] [employer] Supervisor: Ziggy Hilario MD Alkaline Phos 93 U/L Normal 40-129 [facility] Comment on above: Performed By: #### C MPX, CDP #### [facility] [address] [place], [place] [id number] [employer] Supervisor: Ziggy Hilario MD ALT [Catalytic activity/Vol] 63 U/L High 10-50 [facility] Comment on above: Performed By: #### C MPX, CDP #### [facility] [address] [place] [address] [employer] Supervisor: Ziggy Hilario MD Anion gap [Moles/Vol] 10 mmol/L Normal 9-16 [facility] Comment on above: Performed By: #### C MPX, CDP #### [facility] [address] [place], [place] [id number] [employer] Supervisor: Ziggy Hilario MD AST [Catalytic activity/Vol] 51 U/L High 10-50 [facility] Comment on above: Performed By: #### C MPX, CDP #### [facility] [address] [place], [place] [id number] [employer] Supervisor: Ziggy Hilario MD Bilirubin [Mass/Vol] mg/dL Normal 0.00-1.20 [facility] Comment on above: Performed By: #### C MPX, CDP #### [facility] [address] [place], [place] [id number] [employer] Supervisor: Ziggy Hilario MD BUN/CRE Ratio 15 Normal 9-20 [facility] Comment on above: Performed By: #### C MPX, CDP #### [facility] [address] [place], [place] [id number] [employer] Supervisor: Ziggy Hilario MD Calcium [Mass/Vol] 9.1 mg/dL Normal 8.6-10.4 [facility] Comment on above: Performed By: #### C MPX, CDP #### [facility] [address] [place], [place] [id number] [employer] Supervisor: Ziggy Hilario MD Chloride [Moles/Vol] 103 mmol/L Normal 98-107 [facility] Comment on above: Performed By: #### C MPX, CDP #### [facility] [address] [place], [place] [id number] [employer] Supervisor: Ziggy Hilario MD CO2 [Moles/Vol] 26 mmol/L Normal 20-31 [facility] Comment on above: Performed By: #### C MPX, CDP #### [facility] [address] [place], [place] [id number] [employer] Supervisor: Ziggy Hilario MD Creatinine [Mass/Vol] 1.2 mg/dL Normal 0.70-1.20 [facility] Comment on above: Performed By: #### C MPX, CDP #### [facility] [address] [place] [address] [employer] Supervisor: Ziggy Hilario MD GFR/1.73 sq M.predicted among non-blacks MDRD (S/P/Bld) [Vol rate/Area] 71 mL/min/{1.73_m2} Normal >60 [facility] Comment on above: Result Comment: These results [...] renal tubular secretion. Performed By: #### C MPX, CDP #### [facility] [address] [place] [address] [employer] Supervisor: Ziggy Hilario MD Glucose [Mass/Vol] 221 mg/dL High 74-99 [facility] Comment on above: Performed By: #### C MPX, CDP #### [address] [place] [address] [employer] Supervisor: Ziggy Hilario MD Potassium [Moles/Vol] 4.4 mmol/L Normal 3.7-5.3 [facility] Comment on above: Performed By: #### C MPX, CDP #### [facility] [address] [place] [address] [employer] Supervisor: Ziggy Hilario MD Protein [Mass/Vol] 6.1 g/dL Low 6.6-8.7 [facility] Comment on above: Performed By: #### C MPX, CDP #### [facility] [address] [place] [address] [employer] Supervisor: Ziggy Hilario MD Sodium [Moles/Vol] 139 mmol/L Normal 136-145 [facility] Comment on above: Performed By: #### C MPX, CDP #### [facility] [address] [place] [address] [employer] Supervisor: Ziggy Hilario MD Urea nitrogen [Mass/Vol] 18 mg/dL Normal 6-20 [facility] Comment on above: Performed By: #### C SARAX, CDP #### [facility] [address] [place] [address] [employer] Supervisor: Ziggy Hilario MD Comprehensive Metabolic Pane l w/ Reflex to MGon 05-27-2025 Albumin [Mass/Vol] 3.9 g/dL 3.5 - 5.2 g/dL [facility] Albumin/Globulin [Mass ratio] 1.8 {ratio} 1.0 - 2.5 [facility] ALP [Catalytic activity/Vol] 93 U/L 40 - 129 U/L [facility] ALT [Catalytic activity/Vol] 63 U/L High 10 - 50 U/L [facility] Anion gap [Moles/Vol] 10 mmol/L 9 - 16 mmol/L [facility] AST [Catalytic activity/Vol] 51 U/L High 10 - 50 U/L [facility] Bilirubin [Mass/Vol] mg/dL 0.00 - 1.20 mg/dL [facility] Calcium [Mass/Vol] 9.1 mg/dL 8.6 - 10. 4 mg/dL [facility] Chloride [Moles/Vol] 103 mmol/L 98 - 10 7 mmol/L [facility] CO2 [Moles/Vol] 26 mmol/L 20 - 31 mmol/L [facility] Creatinine [Mass/Vol] 1.2 mg/dL 0.70 - 1.20 mg/dL [facility] Est, Glom Filt Rate 71 - PINF [facility] Comment on above: These results are not [...] that affects renal tubular secretion. Glucose [Mass/Vol] 221 mg/dL High 74 - 99 mg/dL [facility] Interpretation and review of laboratory results Abnormal [facility] Potassium [Moles/Vol] 4.4 mmol/L 3.7 - 5.3 mmol/L [facility] Protein [Mass/Vol] 6.1 g/dL Low 6.6 - 8.7 g/dL [facility] Sodium [Moles/Vol] 139 mmol/L 136 - 145 mmol/L [facility] Urea nitrogen [Mass/Vol] 18 mg/dL 6 - 20 mg/dL [facility] Urea nitrogen/Creatinine [Mass ratio] 15 mg/mg 9 - 20 [facility] Glucose, Whole Bloodon 05-27 Glucose [Mass/Vol] 71 mg/dL Low 74 - 100 mg/dL [facility] Interpretation and review of laboratory results Abnormal [facility] Glucose [Mass/Vol] 71 mg/dL Low 74-100 [facility] Glucose [Mass/Vol] 66 mg/dL Low 74 - 100 mg/dL [facility] Interpretation and review of laboratory results Abnormal [facility] Glucose [Mass/Vol] 66 mg/dL Low 74-100 [facility] Glucose [Mass/Vol] 214 mg/dL High 74 - 100 mg/dL [facility] Interpretation and review of laboratory results Abnormal [facility] Glucose [Mass/Vol] 214 mg/dL High 74-100 [facility] CBC auto differentialon Basophils (Bld) [#/Vol] 0.11 10*3/uL [facility] Basophils/100 WBC (Bld) 1 % 0 - 2 % [facility] Eosinophils (Bld) [#/Vol] 0.11 10*3/uL [facility] Eosinophils/100 WBC (Bld) 1 % 1 - 4 % [facility] Erythrocyte distribution width (RBC) [Ratio] 13.7 % 11.8 - 14.4 % [facility] Hematocrit (Bld) [Volume fraction] 37.7 % Low 40.7 - 50.3 % [facility] Hemoglobin (Bld) [Mass/Vol] 12.1 g/dL Low 13.0 - 17.0 g/dL [facility] Immature granulocytes (Bld) [#/Vol] 0.11 10*3/uL [facility] Immature granulocytes/100 WBC (Bld) 1 % High 0 [facility] Interpretation and review of laboratory results Abnormal [facility] Lymphocytes/100 WBC (Bld) 32 % 24 - 43 % [facility] Lymphocytes/100 WBC (Bld) 3.68 % [facility] MCH (RBC) [Entitic mass] 28.8 pg 25.2 - 33.5 pg [facility] MCHC (RBC) [Mass/Vol] 32.1 g/dL 28.4 - 34.8 g/dL [facility] MCV (RBC) [Entitic vol] 89.8 fL 82.6 - 102.9 fL [facility] Monocytes/100 WBC (Bld) 11 % 3 - 12 % [facility] Monocytes/100 WBC (Bld) 1.23 % High [facility] Neutrophils/100 WBC (Bld) 54 % 36 - 65 % [facility] Nucleated RBC/100 WBC (Bld) [Ratio] 0 % 0.0 per 100 WBC [facility] Platelet mean volume (Bld) [Entitic vol] 9.6 fL 8.1 - 13.5 fL [facility] Platelets (Bld) [#/Vol] 452 10*3/uL [facility] RBC (Bld) [#/Vol] 4.2 10*6/uL Low 4.21 - 5.7 7 m/uL [facility] Segmented neutrophils/100 WBC (Bld) 6.25 % [facility] WBC other (Bld) [#/Vol] 11.5 High [facility] CBC with Diffon 08-05-2025 Abs. Basophil 0.11 k/uL Normal 0.00-0.20 [facility] Comment on above: Performed By: #### C MPX, CDP #### [facility] [address] [place] [address] [place] [place], [place] [id number] [employer] Supervisor: Ziggy Hilario MD Abs.Imm.Granulocyte 0.11 k/uL Normal 0.00-0.30 [facility] Comment on above: Performed By: #### C MPX, CDP #### [facility] [address] [place] [address] Dr. [place], [place] [id number] [employer] Supervisor: Ziggy Hilario MD Abs.Neutrophil (Seg) 6.25 k/uL Normal 1.50-8.10 [facility] Comment on above: Performed By: #### C MPX, CDP #### [address] [place], [facility] [employer] Supervisor: Ziggy Hilario MD Basophils/100 WBC (Bld) 1 % Normal 0-2 [facility] Comment on above: Performed By: #### C MPX, CDP #### [address] [place], [place] [id number] [employer] Supervisor: Ziggy Hilario MD Eosinophils (Bld) [#/Vol] 0.11 10*3/uL Normal 0.00-0.44 [facility] Comment on above: Performed By: #### C MPX, CDP #### [facility] [address] [place] [address] Dr. [place], [place] [id number] [employer] Supervisor: Ziggy Hilario MD Eosinophils/100 WBC (Bld) 1 % Normal 1-4 [facility] Comment on above: Performed By: #### C MPX, CDP #### [address] [place], [place] [id number] [employer] Supervisor: Ziggy Hilario MD Erythrocyte distribution width (RBC) [Ratio] 13.7 % Normal 11.8-14.4 [facility] Comment on above: Performed By: #### C MPX, CDP #### [facility] [address] [place], [place] [address] [employer] Supervisor: Ziggy Hilario MD Hematocrit (Bld) [Volume fraction] 37.7 % Low 40.7-50.3 [facility] Comment on above: Performed By: #### C MPX, CDP #### [facility] [address] [place], [facility] [employer] Supervisor: Ziggy Hilario MD Hemoglobin (Bld) [Mass/Vol] 12.1 g/dL Low 13.0-17.0 [facility] Comment on above: Performed By: #### C MPX, CDP #### [address] [place], [facility] [employer] Supervisor: Ziggy Hilario MD Immature granulocytes/100 WBC (Bld) 1 % High 0 [facility] Comment on above: Performed By: #### C MPX, CDP #### [address] [place], [facility] [employer] Supervisor: Ziggy Hilario MD Lymphocytes (Bld) [#/Vol] 3.68 10*3/uL Normal 1.10-3.70 [facility] Comment on above: Performed By: #### C MPX, CDP #### [facility] [address] [place] [address] Dr. [place], [facility] [employer] Supervisor: Ziggy Hilario MD Lymphocytes/100 WBC (Bld) 32 % Normal 24-43 [facility] Comment on above: Performed By: #### C MPX, CDP #### [facility] [address] [place], [facility]83 [employer] Supervisor: Ziggy Hilario MD MCH (RBC) [Entitic mass] 28.8 pg Normal 25.2-33.5 [facility] Comment on above: Performed By: #### C MPX, CDP #### [facility] [address] [place], [place] [id number] [employer] Supervisor: Ziggy Hilario MD MCHC (RBC) [Mass/Vol] 32.1 g/dL Normal 28.4-34.8 [facility] Comment on above: Performed By: #### C MPX, CDP #### [facility] [address] [place], [place] [id number] [employer] Supervisor: Ziggy Hilario MD MCV (RBC) [Entitic vol] 89.8 fL Normal 82.6-102.9 [facility] Comment on above: Performed By: #### C MPX, CDP #### [facility] [address] [place], [place] [id number] [employer] Supervisor: Ziggy Hilario MD Monocytes (Bld) [#/Vol] 1.23 10*3/uL High 0.10-1.20 [facility] Comment on above: Performed By: #### C MPX, CDP #### [facility] [address] [place], [place] [id number] [employer] Supervisor: Ziggy Hilario MD Monocytes/100 WBC (Bld) 11 % Normal 3-12 [facility] Comment on above: Performed By: #### C MPX, CDP #### [facility] [address] [place], [place] [id number] [employer] Supervisor: Ziggy Hilario MD Neutrophil (Seg) 54 % Normal 36-65 [facility] Comment on above: Performed By: #### C MPX, CDP #### [facility] [address] [place], [place] [id number] [employer] Supervisor: Ziggy Hilario MD NRBC Automated 0.0 per 100 WBC Normal 0.0 [facility] Comment on above: Performed By: #### C MPX, CDP #### [facility] [address] [place], [place] [id number] [employer] Supervisor: Ziggy Hilario MD Platelet mean volume (Bld) [Entitic vol] 9.6 fL Normal 8.1-13.5 [facility] Comment on above: Performed By: #### C MPX, CDP #### [facility] [address] [place], [place] [id number] [employer] Supervisor: Ziggy Hilario MD Platelets (Bld) [#/Vol] 452 10*3/uL Normal 138-453 [facility] Comment on above: Performed By: #### C MPX, CDP #### [facility] [address] [place] [address] [employer] Supervisor: Ziggy Hilario MD RBC (Bld) [#/Vol] 4.20 10*6/uL Low 4.21-5.77 [facility] Comment on above: Performed By: #### C MPX, CDP #### [address] [place] [address] [employer] Supervisor: Ziggy Hilario MD WBC (Bld) [#/Vol] 11.5 10*3/uL High 3.5-11.3 [facility] Comment on above: Performed By: #### C MPX, CDP #### [address] [place], [place] [id number] [employer] Supervisor: Ziggy Hilario MD Comp Metabolic Pr/rfx MGon 0 8- Albumin [Mass/Vol] 4.1 g/dL Normal 3.5-5.2 [facility] Comment on above: Performed By: #### C MPX, CDP #### [address] [place] [address] [employer] Supervisor: Ziggy Hilario MD Albumin/Glob Ratio 1.8 Normal 1.0-2.5 [facility] Comment on above: Performed By: #### C MPX, CDP #### [facility] [address] [place], [place] [id number] [employer] Supervisor: Ziggy Hilario MD Alkaline Phos 100 U/L Normal 40-129 [facility] Comment on above: Performed By: #### C MPX, CDP #### [facility] [address] [place], [place] [id number] [employer] Supervisor: Ziggy Hilario MD ALT [Catalytic activity/Vol] 78 U/L High 10-50 [facility] Comment on above: Performed By: #### C MPX, CDP #### [facility] [address] [place], [place] [id number] [employer] Supervisor: Ziggy Hilario MD Anion gap [Moles/Vol] 11 mmol/L Normal 9-16 [facility] Comment on above: Performed By: #### C MPX, CDP #### [facility] [address] [place], [place] 379[address]3 [employer] Supervisor: Ziggy Hilario MD AST [Catalytic activity/Vol] 73 U/L High 10-50 [facility] Comment on above: Performed By: #### C MPX, CDP #### [facility] [address] [place], [place] [id number] [employer] Supervisor: Ziggy Hilario MD Bilirubin [Mass/Vol] 0.3 mg/dL Normal 0.00-1.20 [facility] Comment on above: Performed By: #### C MPX, CDP #### [facility] [address] [place], [place] [id number] [employer] Supervisor: Ziggy Hilario MD BUN/CRE Ratio 16 Normal 9-20 [facility] Comment on above: Performed By: #### C MPX, CDP #### [facility] [address] [place], [place] 615[address]83 [employer] Supervisor: Ziggy Hilario MD Calcium [Mass/Vol] 9.0 mg/dL Normal 8.6-10.4 [facility] Comment on above: Performed By: #### C MPX, CDP #### [facility] [address] [place], [place] [id number] [employer] Supervisor: Ziggy Hilario MD Chloride [Moles/Vol] 101 mmol/L Normal 98-107 [facility] Comment on above: Performed By: #### C MPX, CDP #### [facility] [address] [place] [address] [employer] Supervisor: Ziggy Hilario MD CO2 [Moles/Vol] 26 mmol/L Normal 20-31 [facility] Comment on above: Performed By: #### C MPX, CDP #### [facility] [address] [place] [address] [employer] Supervisor: Ziggy Hilario MD Creatinine [Mass/Vol] 1.2 mg/dL Normal 0.70-1.20 [facility] Comment on above: Performed By: #### C MPX, CDP #### [facility] [address] [place] [address] [employer] Supervisor: Ziggy Hilario MD GFR/1.73 sq M.predicted among non-blacks MDRD (S/P/Bld) [Vol rate/Area] 74 mL/min/{1.73_m2} Normal >60 [facility] Comment on above: Result Comment: These results [...] renal tubular secretion. Performed By: #### C MPX, CDP #### [facility] [address] [place] [address] [employer] Supervisor: Ziggy Hilario MD Glucose [Mass/Vol] 166 mg/dL High 74-99 [facility] Comment on above: Performed By: #### C MPX, CDP #### [facility] [address] [place] [address] [employer] Supervisor: Ziggy Hilario MD Potassium [Moles/Vol] 4.3 mmol/L Normal 3.7-5.3 [facility] Comment on above: Performed By: #### C MPX, CDP #### [facility] [address] [place], [place] [id number] [employer] Supervisor: Ziggy Hilario MD Protein [Mass/Vol] 6.5 g/dL Low 6.6-8.7 [facility] Comment on above: Performed By: #### C MPX, CDP #### [facility] [address] [place], [place] [id number] [employer] Supervisor: Ziggy Hilario MD Sodium [Moles/Vol] 138 mmol/L Normal 136-145 [facility] Comment on above: Performed By: #### C MPX, CDP #### [facility] [address] [place] [address] [employer] Supervisor: Ziggy Hilario MD Urea nitrogen [Mass/Vol] 19 mg/dL Normal 6-20 [facility] Comment on above: Performed By: #### C MPX, CDP #### [facility] [address] [place] [address] Dr. [place], [place] [id number] [employer] Supervisor: Ziggy Hilario MD Comprehensive Metabolic Pane l w/ Reflex to MGon 05-26-2025 Albumin [Mass/Vol] 4.1 g/dL 3.5 - 5.2 g/dL [facility] Albumin/Globulin [Mass ratio] 1.8 {ratio} 1.0 - 2.5 [facility] ALP [Catalytic activity/Vol] 100 U/L 40 - 129 U/L [facility] ALT [Catalytic activity/Vol] 78 U/L High 10 - 50 U/L [facility] Anion gap [Moles/Vol] 11 mmol/L 9 - 16 mmol/L [facility] AST [Catalytic activity/Vol] 73 U/L High 10 - 50 U/L [facility] Bilirubin [Mass/Vol] 0.3 mg/dL 0.00 - 1.20 mg/dL [facility] Calcium [Mass/Vol] 9 mg/dL 8.6 - 10. 4 mg/dL [facility] Chloride [Moles/Vol] 101 mmol/L 98 - 10 7 mmol/L [facility] CO2 [Moles/Vol] 26 mmol/L 20 - 31 mmol/L [facility] Creatinine [Mass/Vol] 1.2 mg/dL 0.70 - 1.20 mg/dL [facility] Est, Glom Filt Rate 74 - PINF [facility] Comment on above: These results are not [...] that affects renal tubular secretion. Glucose [Mass/Vol] 166 mg/dL High 74 - 99 mg/dL [facility] Interpretation and review of laboratory results Abnormal [facility] Potassium [Moles/Vol] 4.3 mmol/L 3.7 - 5.3 mmol/L [facility] Protein [Mass/Vol] 6.5 g/dL Low 6.6 - 8.7 g/dL [facility] Sodium [Moles/Vol] 138 mmol/L 136 - 145 mmol/L [facility] Urea nitrogen [Mass/Vol] 19 mg/dL 6 - 20 mg/dL [facility] Urea nitrogen/Creatinine [Mass ratio] 16 mg/mg 9 - 20 [facility] EKG Rhythm Stripon [facility] Glucose, Whole Bloodon 05-26 Glucose [Mass/Vol] 103 mg/dL High 74-100 [facility] Interpretation and review of laboratory results Abnormal [facility] Glucose [Mass/Vol] 138 mg/dL High 74 - 100 mg/dL [facility] Interpretation and review of laboratory results Abnormal [facility] Glucose [Mass/Vol] 138 mg/dL High 74-100 [facility] Glucose [Mass/Vol] 105 mg/dL High 74 - 100 mg/dL [facility] Interpretation and review of laboratory results Abnormal [facility] Glucose [Mass/Vol] 105 mg/dL High 74-100 [facility] Glucose [Mass/Vol] 94 mg/dL 74 - 100 mg/dL [facility] Glucose [Mass/Vol] 94 mg/dL Normal 74-100 [facility] Procalcitoninon 05-26-2025 Procalcitonin [Mass/Vol] 0.04 ng/mL 0.00 - 0.09 ng/mL [facility] Comment on above: Suspected Sepsis: <0.50 ng/mL Low likelihood of sepsis. 0.50-2.00 ng/mL Increased likelihood of sepsis. Antibiotics encouraged. >2.00 ng/mL High risk of sepsis/shock. Antibiotics strongly encouraged. Suspected Lower Resp Tract Infections: <0.24 ng/mL Low likelihood of bacterial infection. >0.24 ng/mL Increased likelihood of bacterial infection. Antibiotics encouraged. With successful antibiotic therapy, PCT levels should decrease rapidly. (Half-life of 24 to 36 hours.) Procalcitonin values from samples collected within the first 6 hours of systemic infection may still be low. Retesting may be indicated. Values from day 1 and day 4 can be entered into the Change in Procalcitonin Calculator (www.lxdyaw-dyk-ghpanrthvz.com) to determine the patient's Mortality Risk Prognosis In healthy neonates, plasma Procalcitonin (PCT) concentrations increase gradually after , reaching peak values at about 24 hours of age then decrease to normal values below 0.5 ng/mL by 48-72 hours of age. [facility] Procalcitonin 0.04 ng/mL Normal 0.00-0.09 [facility] Comment on above: Result Comment: Suspected Sepsis: <0.50 ng/mL Low likelihood of sepsis. 0.50-2.00 ng/mL Increased likelihood of sepsis. Antibiotics encouraged. >2.00 ng/mL High risk of sepsis/shock. Antibiotics strongly encouraged. Suspected Lower Resp Tract Infections: <0.24 ng/mL Low likelihood of bacterial infection. >0.24 ng/mL Increased likelihood of bacterial infection. Antibiotics encouraged. With successful antibiotic therapy, PCT levels should decrease rapidly. (Half-life of 24 to 36 hours.) Procalcitonin values from samples collected within the first 6 hours of systemic infection may still be low. Retesting may be indicated. Values from day 1 and day 4 can be entered into the Change in Procalcitonin Calculator (www.wokqkh-tjj-rylzcifgwu.reBuy.de) to determine the patient's Mortality Risk Prognosis In healthy neonates, plasma Procalcitonin (PCT) concentrations increase gradually after , reaching peak values at about 24 hours of age then decrease to normal values below 0.5 ng/mL by 48-72 hours of age. Performed By: #### P [facility] #### [place] [id number] [place] [id number] [employer] Supervisor: Reno Duron MD US ABDOMEN COMPLETEon 2024 US ABDOMEN COMPLETE EXAM: COMPLETE ABDOMINAL ULTRASOUND TECHNIQUE: Real-time ultrasonography of the abdomen was performed. COMPARISON: None available. CLINICAL HISTORY: Pain to right upper quadrant. FINDINGS: LIVER: The liver demonstrates normal echogenicity. No intrahepatic biliary ductal dilatation. No mass. BILIARY SYSTEM: Gallbladder is surgically absent. The common bile duct measures 3.1 mm. No pericholecystic fluid or wall thickening. No cholelithiasis. Negative sonographic Beltran's sign. KIDNEYS: The kidneys are unremarkable in appearance without evidence of hydronephrosis, echogenic calculi or worrisome mass lesions. PANCREAS: Visualized portions of the pancreas are unremarkable. SPLEEN: No acute abnormality. Spleen is within normal limits in size. IVC: The IVC is patent. AORTA: Aorta is patent. No aneurysm. OTHER: No ascites. IMPRESSION: 1. No acute findings. 2. Gallbladder surgically absent. Interpreted by: Aleksandr Jean Baptiste MD Signed by: Aleksandr Jean Baptiste MD 05/26/25 Final result Normal [facility] US Abdomenon 05-26-2025 1. No acute findings . 2. Gallbladder surgically absent. [facility] CONSOLID[facility] EXAM: COMPLETE ABDOMINAL ULTRASOUND TECHNIQUE: Real-time ultrasonography of the abdomen was performed. COMPARISON: None available. CLINICAL HISTORY: Pain to right upper quadrant. FINDINGS: LIVER: The liver demonstrates normal echogenicity. No intrahepatic biliary ductal dilatation. No mass. BILIARY SYSTEM: Gallbladder is surgically absent. The common bile duct measures 3.1 mm. No pericholecystic fluid or wall thickening. No cholelithiasis. Negative sonographic Beltran's sign. KIDNEYS: The kidneys are unremarkable in appearance without evidence of hydronephrosis, echogenic calculi or worrisome mass lesions. PANCREAS: Visualized portions of the pancreas are unremarkable. SPLEEN: No acute abnormality. Spleen is within normal limits in size. IVC: The IVC is patent. AORTA: Aorta is patent. No aneurysm. OTHER: No ascites. [facility] Aleksandr Jean Baptiste MD - 05/26/2025 EXAM: COMPLETE ABDOMINAL ULTRASOUND TECHNIQUE: Real-time ultrasonography of the abdomen was performed. COMPARISON: None available. CLINICAL HISTORY: Pain to right upper quadrant. FINDINGS: LIVER: The liver demonstrates normal echogenicity. No intrahepatic biliary ductal dilatation. No mass. BILIARY SYSTEM: Gallbladder is surgically absent. The common bile duct measures 3.1 mm. No pericholecystic fluid or wall thickening. No cholelithiasis. Negative sonographic Beltran's sign. KIDNEYS: The kidneys are unremarkable in appearance without evidence of hydronephrosis, echogenic calculi or worrisome mass lesions. PANCREAS: Visualized portions of the pancreas are unremarkable. SPLEEN: No acute abnormality. Spleen is within normal limits in size. IVC: The IVC is patent. AORTA: Aorta is patent. No aneurysm. OTHER: No ascites. IMPRESSION: 1. No acute findings. 2. Gallbladder surgically absent. [facility] Radiology Study observation (narrative) [facility] US AbdomenOrdered By: Aleksandr Jean Baptiste on 05-26-2025 [facility] Work Phone: XR CHEST (2 VW)on 05-26-2025 XR CHEST (2 VW) EXAMINATION: TWO XRAY VIEWS OF THE CHEST 05/25/2025 11:54 pm COMPARISON: 08/08/2024 HISTORY: ORDERING SYSTEM PROVIDED HISTORY: rigth lower lung pain with inspiration TECHNOLOGIST PROVIDED HISTORY: rigth lower lung pain with inspiration FINDINGS: Spinal stimulator device noted. Sternal fixation plate noted. Vertebral body cement noted within the midthoracic spine at multiple levels. Multilevel degenerative changes are seen in the spine. Exaggerated kyphotic curvature. Lungs are clear. No acute cardiopulmonary process. Hyperaeration suggestive of COPD. Flattening the hemidiaphragms. IMPRESSION: Hyperaeration with no acute cardiopulmonary process seen. Interpreted by: Ziggy Lyn MD Signed by: Ziggy Lyn MD 05/26/25 Final result Normal [facility] XR Chest 2 Viewson Hyperaeration with n o acute cardiopulmonary process seen. [facility] RIS CONSOLIDATED EXAMINATION: TWO XRAY VIEWS OF THE CHEST 05/25/2025 11:54 pm COMPARISON: 08/08/2024 HISTORY: ORDERING SYSTEM PROVIDED HISTORY: rigth lower lung pain with inspiration TECHNOLOGIST PROVIDED HISTORY: rigth lower lung pain with inspiration FINDINGS: Spinal stimulator device noted. Sternal fixation plate noted. Vertebral body cement noted within the midthoracic spine at multiple levels. Multilevel degenerative changes are seen in the spine. Exaggerated kyphotic curvature. Lungs are clear. No acute cardiopulmonary process. Hyperaeration suggestive of COPD. Flattening the hemidiaphragms. [facility]IS CONSOLIDATED Ziggy Lyn MD - 05/26/2025 EXAMINATION: TWO XRAY VIEWS OF THE CHEST 05/25/2025 11:54 pm COMPARISON: 08/08/2024 HISTORY: ORDERING SYSTEM PROVIDED HISTORY: rigth lower lung pain with inspiration TECHNOLOGIST PROVIDED HISTORY: rigth lower lung pain with inspiration FINDINGS: Spinal stimulator device noted. Sternal fixation plate noted. Vertebral body cement noted within the midthoracic spine at multiple levels. Multilevel degenerative changes are seen in the spine. Exaggerated kyphotic curvature. Lungs are clear. No acute cardiopulmonary process. Hyperaeration suggestive of COPD. Flattening the hemidiaphragms. IMPRESSION: Hyperaeration with no acute cardiopulmonary process seen. [facility] XR Chest 2 ViewsOrdered By: Ziggy Lyn on 05-26-2025 [facility] Work Phone: CBC with Auto Differentialon 05-25-2025 Basophils (Bld) [#/Vol] 0.13 10*3/uL [facility] Basophils/100 WBC (Bld) 1 % 0 - 2 % [facility] Eosinophils (Bld) [#/Vol] 0.09 10*3/uL [facility] Eosinophils/100 WBC (Bld) 1 % 1 - 4 % [facility] Erythrocyte distribution width (RBC) [Ratio] 13.5 % 11.8 - 14.4 % [facility] Hematocrit (Bld) [Volume fraction] 37.2 % Low 40.7 - 50.3 % [facility] Hemoglobin (Bld) [Mass/Vol] 12.2 g/dL Low 13.0 - 17.0 g/dL [facility] Immature granulocytes (Bld) [#/Vol] 0.13 10*3/uL [facility] Immature granulocytes/100 WBC (Bld) 1 % High 0 [facility] Interpretation and review of laboratory results Abnormal [facility] Lymphocytes/100 WBC (Bld) 29 % 24 - 43 % [facility] Lymphocytes/100 WBC (Bld) 3.59 % [facility] MCH (RBC) [Entitic mass] 29.3 pg 25.2 - 33.5 pg [facility] MCHC (RBC) [Mass/Vol] 32.8 g/dL 28.4 - 34.8 g/dL [facility] MCV (RBC) [Entitic vol] 89.4 fL 82.6 - 102.9 fL [facility] Monocytes/100 WBC (Bld) 11 % 3 - 12 % [facility] Monocytes/100 WBC (Bld) 1.37 % High [facility] Neutrophils/100 WBC (Bld) 57 % 36 - 65 % [facility] Nucleated RBC/100 WBC (Bld) [Ratio] 0 % 0.0 per 100 WBC [facility] Platelet mean volume (Bld) [Entitic vol] 9 fL 8.1 - 13.5 fL [facility] Platelets (Bld) [#/Vol] 433 10*3/uL [facility] RBC (Bld) [#/Vol] 4.16 10*6/uL Low 4.21 - 5.7 7 m/uL [facility] Segmented neutrophils/100 WBC (Bld) 7.2 % [facility] WBC other (Bld) [#/Vol] 12.5 High [facility] CBC with Diffon 05-25-2025 Abs. Basophil 0.13 k/uL Normal 0.00-0.20 [facility] Comment on above: Performed By: #### P RCAL #### [address] [address] [employer] Supervisor: Reno Duron MD Abs.Imm.Granulocyte 0.13 k/uL Normal 0.00-0.30 [facility] Comment on above: Performed By: #### P RCAL #### [address] [address] [employer] Supervisor: Reno Duron MD Abs.Neutrophil (Seg) 7.20 k/uL Normal 1.50-8.10 [facility] Comment on above: Performed By: #### P RCAL #### [address] [address] [employer] Supervisor: Reno Duron MD Basophils/100 WBC (Bld) 1 % Normal 0-2 [facility] Comment on above: Performed By: #### P RCAL #### [address] [address] [employer] Supervisor: Reno Duron MD Eosinophils (Bld) [#/Vol] 0.09 10*3/uL Normal 0.00-0.44 [facility] Comment on above: Performed By: #### P RCAL #### [address] [address] [employer] Supervisor: Reno Duron MD Eosinophils/100 WBC (Bld) 1 % Normal 1-4 [facility] Comment on above: Performed By: #### P RCAL #### [address] [address] [employer] Supervisor: Reno Duron MD Erythrocyte distribution width (RBC) [Ratio] 13.5 % Normal 11.8-14.4 [facility] Comment on above: Performed By: #### P RCAL #### [address] [address] [employer] Supervisor: Reno Duron MD Hematocrit (Bld) [Volume fraction] 37.2 % Low 40.7-50.3 [facility] Comment on above: Performed By: #### P RCAL #### [address] [address] [employer] Supervisor: Reno Duron MD Hemoglobin (Bld) [Mass/Vol] 12.2 g/dL Low 13.0-17.0 [facility] Comment on above: Performed By: #### P RCAL #### [place] [address] [employer] Supervisor: Reno Duron MD Immature granulocytes/100 WBC (Bld) 1 % High 0 [facility] Comment on above: Performed By: #### P RCAL #### [address] [address] [employer] Supervisor: Reno Duron MD Lymphocytes (Bld) [#/Vol] 3.59 10*3/uL Normal 1.10-3.70 [facility] Comment on above: Performed By: #### P RCAL #### [address] [address] [employer] Supervisor: Reno Duron MD Lymphocytes/100 WBC (Bld) 29 % Normal 24-43 [facility] Comment on above: Performed By: #### P RCAL #### [address] [address] [employer] Supervisor: Reno Duron MD MCH (RBC) [Entitic mass] 29.3 pg Normal 25.2-33.5 [facility] Comment on above: Performed By: #### P RCAL #### [address] [address] [employer] Supervisor: Reno Duron MD MCHC (RBC) [Mass/Vol] 32.8 g/dL Normal 28.4-34.8 [facility] Comment on above: Performed By: #### P RCAL #### [address] [address] [employer] Supervisor: Reno Duron MD MCV (RBC) [Entitic vol] 89.4 fL Normal 82.6-102.9 [facility] Comment on above: Performed By: #### P RCAL #### [address] [address] [employer] Supervisor: Reno Duron MD Monocytes (Bld) [#/Vol] 1.37 10*3/uL High 0.10-1.20 [facility] Comment on above: Performed By: #### P RCAL #### [address] [address] [employer] Supervisor: Reno Duron MD Monocytes/100 WBC (Bld) 11 % Normal 3-12 [facility] Comment on above: Performed By: #### P RCAL #### [address] [address] [employer] Supervisor: Reno Duron MD Neutrophil (Seg) 57 % Normal 36-65 [facility] Comment on above: Performed By: #### P RCAL #### [address] [address] [employer] Supervisor: Reno Duron MD NRBC Automated 0.0 per 100 WBC Normal 0.0 [facility] Comment on above: Performed By: #### P RCAL #### [address] [address] [employer] Supervisor: Reno Duron MD Platelet mean volume (Bld) [Entitic vol] 9.0 fL Normal 8.1-13.5 [facility] Comment on above: Performed By: #### P RCAL #### [facility] [address] [place] [address] [employer] Supervisor: Reno Duron MD Platelets (Bld) [#/Vol] 433 10*3/uL Normal 138-453 [facility] Comment on above: Performed By: #### P RCAL #### [facility] [address] [place] [address] [employer] Supervisor: Reno Duron MD RBC (Bld) [#/Vol] 4.16 10*6/uL Low 4.21-5.77 [facility] Comment on above: Performed By: #### P RCAL #### [facility] [address] [place] [address] [employer] Supervisor: Reno Duron MD WBC (Bld) [#/Vol] 12.5 10*3/uL High 3.5-11.3 [facility] Comment on above: Performed By: #### P RCAL #### [facility] [address] [place] [address] [employer] Supervisor: Reno Duron MD [facility] 05-25-2025 Albumin [Mass/Vol] 4.2 g/dL 3.5 - 5.2 g/dL [facility] Albumin/Globulin [Mass ratio] 1.7 {ratio} 1.0 - 2.5 [facility] ALP [Catalytic activity/Vol] 145 U/L High 40 - 129 U/L [facility] ALT [Catalytic activity/Vol] 91 U/L High 10 - 50 U/L [facility] Anion gap [Moles/Vol] 12 mmol/L 9 - 16 mmol/L [facility] AST [Catalytic activity/Vol] 90 U/L High 10 - 50 U/L [facility] Bilirubin [Mass/Vol] mg/dL 0.00 - 1.20 mg/dL [facility] Calcium [Mass/Vol] 9.1 mg/dL 8.6 - 10. 4 mg/dL [facility] Chloride [Moles/Vol] 101 mmol/L 98 - 10 7 mmol/L [facility] CO2 [Moles/Vol] 21 mmol/L 20 - 31 mmol/L [facility] Creatinine [Mass/Vol] 1.4 mg/dL High 0.70 - 1.20 mg/dL [facility] Yoon Barron Rate 61 - PINF [facility] Comment on above: These results are not [...] that affects renal tubular secretion. Glucose [Mass/Vol] 178 mg/dL High 74 - 99 mg/dL [facility] Potassium [Moles/Vol] 4.6 mmol/L 3.7 - 5.3 mmol/L [facility] Comment on above: Specimen hemolysis h as exceeded the interference as defined by Gwyn. Value may be falsely increased. Suggest recollection if clinically indicated. Protein [Mass/Vol] 6.6 g/dL 6.6 - 8.7 g/dL [facility] Sodium [Moles/Vol] 134 mmol/L Low 136 - 145 mmol/L [facility] Urea nitrogen [Mass/Vol] 22 mg/dL High 6 - 20 mg/dL [facility] Urea nitrogen/Creatinine [Mass ratio] 16 mg/mg 9 - [address] [facility] [address] ABDOMEN PELVIS WO CONTRAS Ton 05-25-2025 CT ABDOMEN PELVIS WO CONTRAST EXAMINATION: CT OF THE ABDOMEN AND PELVIS WITHOUT CONTRAST 05/25/2025 6:18 pm TECHNIQUE: CT of the abdomen and pelvis was performed without the administration of intravenous contrast. Multiplanar reformatted images are provided for review. Automated exposure control, iterative reconstruction, and/or weight based adjustment of the mA/kV was utilized to reduce the radiation dose to as low as reasonably achievable. COMPARISON: 02/16/2025 HISTORY: ORDERING SYSTEM PROVIDED HISTORY: Right flank pain TECHNOLOGIST PROVIDED HISTORY: Right flank pain Decision Support Exception - unselect if not a suspected or confirmed emergency medical condition->Emergency Medical Condition (MA) FINDINGS: Lower Chest: There is some hazy subsegmental linear and ground-glass opacities along the lung bases posterolaterally. Organs: The liver is normal size with mild pneumobilia centrally in the liver extending into the common duct which is unchanged. The gallbladder has been removed and the bile ducts are normal caliber. The pancreas has been partially resected with surgical clips along the head region which is unchanged. The spleen has been removed. The adrenals are normal. The kidneys are normal size with mild perirenal stranding around both kidneys which is more prominent with no hydronephrosis, renal stone, or mass. The ureters are normal caliber. GI/Bowel: There is mild feces scattered in the colon. There are surgical sutures along the cecum and the appendix not visualized which is unchanged. The small bowel is normal caliber with no bowel wall thickening and the mesentery is unremarkable Pelvis: The prostate gland is mildly enlarged with radium implants in the gland which is unchanged. There is mild fat density along the inguinal regions bilaterally which is unchanged with no bowel loops in the area. There is no adenopathy or ascites. Peritoneum/Retroperitoneu m: The aorta is normal caliber with no aneurysm and no retroperitoneal mass or adenopathy is seen. There is diastasis of the rectus sheath with bulging along the umbilical region which is unchanged. There is a TENs unit device along the left gluteal region which is causing streak artifact and is unchanged. Bones/Soft Tissues: There are moderate degenerative changes throughout the spine with a mild compression deformity of L3 and a previous vertebral plasty at this level which is unchanged with no retropulsed fragment. 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 Perirenal stranding around both kidneys which is more prominent could be due to progressive scarring or early inflammatory changes with no hydronephrosis or urinary obstruction. Recommend correlating with a urinalysis. Previous appendectomy which is unchanged and mild constipation with no obstruction. Mild prostatic enlargement and radium implants in the gland which is unchanged Questionable small inguinal hernias bilaterally which is unchanged Previous vertebroplasty at L3 which is unchanged Mild bibasilar atelectasis or early infiltrates posteriorly which is more prominent. Interpreted by: Sid Brandt MD Signed by: Sid Brandt MD 05/25/25 Final result Normal [facility] CT Abdomen and Pelvis ROZINA paige 05-25-2025 EXAMINATION: CT OF THE ABDOMEN AND PELVIS WITHOUT CONTRAST 05/25/2025 6:18 pm TECHNIQUE: CT of the abdomen and pelvis was performed without the administration of intravenous contrast. Multiplanar reformatted images are provided for review. Automated exposure control, iterative reconstruction, and/or weight based adjustment of the mA/kV was utilized to reduce the radiation dose to as low as reasonably achievable. COMPARISON: 02/16/2025 HISTORY: ORDERING SYSTEM PROVIDED HISTORY: Right flank pain TECHNOLOGIST PROVIDED HISTORY: Right flank pain Decision Support Exception - unselect if not a suspected or confirmed emergency medical condition->Emergency Medical Condition (MA) FINDINGS: Lower Chest: There is some hazy subsegmental linear and ground-glass opacities along the lung bases posterolaterally. Organs: The liver is normal size with mild pneumobilia centrally in the liver extending into the common duct which is unchanged. The gallbladder has been removed and the bile ducts are normal caliber. The pancreas has been partially resected with surgical clips along the head region which is unchanged. The spleen has been removed. The adrenals are normal. The kidneys are normal size with mild perirenal stranding around both kidneys which is more prominent with no hydronephrosis, renal stone, or mass. The ureters are normal caliber. GI/Bowel: There is mild feces scattered in the colon. There are surgical sutures along the cecum and the appendix not visualized which is unchanged. The small bowel is normal caliber with no bowel wall thickening and the mesentery is unremarkable Pelvis: The prostate gland is mildly enlarged with radium implants in the gland which is unchanged. There is mild fat density along the inguinal regions bilaterally which is unchanged with no bowel loops in the area. There is no adenopathy or ascites. Peritoneum/Retroperitoneu m: The aorta is normal caliber with no aneurysm and no retroperitoneal mass or adenopathy is seen. There is diastasis of the rectus sheath with bulging along the umbilical region which is unchanged. There is a TENs unit device along the left gluteal region which is causing streak artifact and is unchanged. Bones/Soft Tissues: There are moderate degenerative changes throughout the spine with a mild compression deformity of L3 and a previous vertebral plasty at this level which is unchanged with no retropulsed fragment. [facility] CONSOLID[facility] Sid Brandt MD - 05/25/2025 EXAMINATION: CT OF THE ABDOMEN AND PELVIS WITHOUT CONTRAST 05/25/2025 6:18 pm TECHNIQUE: CT of the abdomen and pelvis was performed without the administration of intravenous contrast. Multiplanar reformatted images are provided for review. Automated exposure control, iterative reconstruction, and/or weight based adjustment of the mA/kV was utilized to reduce the radiation dose to as low as reasonably achievable. COMPARISON: 02/16/2025 HISTORY: ORDERING SYSTEM PROVIDED HISTORY: Right flank pain TECHNOLOGIST PROVIDED HISTORY: Right flank pain Decision Support Exception - unselect if not a suspected or confirmed emergency medical condition->Emergency Medical Condition (MA) FINDINGS: Lower Chest: There is some hazy subsegmental linear and ground-glass opacities along the lung bases posterolaterally. Organs: The liver is normal size with mild pneumobilia centrally in the liver extending into the common duct which is unchanged. The gallbladder has been removed and the bile ducts are normal caliber. The pancreas has been partially resected with surgical clips along the head region which is unchanged. The spleen has been removed. The adrenals are normal. The kidneys are normal size with mild perirenal stranding around both kidneys which is more prominent with no hydronephrosis, renal stone, or mass. The ureters are normal caliber. GI/Bowel: There is mild feces scattered in the colon. There are surgical sutures along the cecum and the appendix not visualized which is unchanged. The small bowel is normal caliber with no bowel wall thickening and the mesentery is unremarkable Pelvis: The prostate gland is mildly enlarged with radium implants in the gland which is unchanged. There is mild fat density along the inguinal regions bilaterally which is unchanged with no bowel loops in the area. There is no adenopathy or ascites. Peritoneum/Retroperitoneu m: The aorta is normal caliber with no aneurysm and no retroperitoneal mass or adenopathy is seen. There is diastasis of the rectus sheath with bulging along the umbilical region which is unchanged. There is a TENs unit device along the left gluteal region which is causing streak artifact and is unchanged. Bones/Soft Tissues: There are moderate degenerative changes throughout the spine with a mild compression deformity of L3 and a previous vertebral plasty at this level which is unchanged with no retropulsed fragment. 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 Perirenal stranding around both kidneys which is more prominent could be due to progressive scarring or early inflammatory changes with no hydronephrosis or urinary obstruction. Recommend correlating with a urinalysis. Previous appendectomy which is unchanged and mild constipation with no obstruction. Mild prostatic enlargement and radium implants in the gland which is unchanged Questionable small inguinal hernias bilaterally which is unchanged Previous vertebroplasty at L3 which is unchanged Mild bibasilar atelectasis or early infiltrates posteriorly which is more prominent. [facility] Radiology Study observation (narrative) [facility] CT Abdomen and Pelvis WO con trastOrdered By: Sid Brandt on 05-25-2025 [facility] Work Phone: Comp Metabolic Profon 2024 Albumin [Mass/Vol] 4.2 g/dL Normal 3.5-5.2 [facility] Comment on above: Performed By: #### P RCAL #### [employer] [address] [place] [address] [employer] Supervisor: Reno Duron MD Albumin/Glob Ratio 1.7 Normal 1.0-2.5 [facility] Comment on above: Performed By: #### P RCAL #### [facility] [address] [place] [address] [employer] Supervisor: Reno Duron MD Alkaline Phos 145 U/L High 40-129 [facility] Comment on above: Performed By: #### P RCAL #### [employer] [address] [place] [address] [employer] Supervisor: Reno Duron MD ALT [Catalytic activity/Vol] 91 U/L High 10-50 [facility] Comment on above: Performed By: #### P RCAL #### [facility] [address] [place] [address] [employer] Supervisor: Reno Duron MD Anion gap [Moles/Vol] 12 mmol/L Normal 9-16 [facility] Comment on above: Performed By: #### P RCAL #### [id number] [place] [address] [employer] Supervisor: Reno Duron MD AST [Catalytic activity/Vol] 90 U/L High 10-50 [facility] Comment on above: Performed By: #### P RCAL #### [address] [address] [employer] Supervisor: Reno Duron MD Bilirubin [Mass/Vol] mg/dL Normal 0.00-1.20 [facility] Comment on above: Performed By: #### P RCAL #### [address] [address] [employer] Supervisor: Reno Duron MD BUN/CRE Ratio 16 Normal 9-20 [facility] Comment on above: Performed By: #### P RCAL #### [address] [address] [employer] Supervisor: Reno Duron MD Calcium [Mass/Vol] 9.1 mg/dL Normal 8.6-10.4 [facility] Comment on above: Performed By: #### P RCAL #### [address] [address] [employer] Supervisor: Reno Duron MD Chloride [Moles/Vol] 101 mmol/L Normal 98-107 [facility] Comment on above: Performed By: #### P RCAL #### [address] [address] [employer] Supervisor: Reno Duron MD CO2 [Moles/Vol] 21 mmol/L Normal 20-31 [facility] Comment on above: Performed By: #### P RCAL #### [address] [address] [employer] Supervisor: Reno Duron MD Creatinine [Mass/Vol] 1.4 mg/dL High 0.70-1.20 [facility] Comment on above: Performed By: #### P RCAL #### [employer] [address] [place] [address] [employer] Supervisor: Reno Duron MD GFR/1.73 sq M.predicted among non-blacks MDRD (S/P/Bld) [Vol rate/Area] 61 mL/min/{1.73_m2} Normal >60 [facility] Comment on above: Result Comment: These results [...] affects renal tubular secretion. Performed By: #### P RCAL #### [employer] [address] [place] [address] [employer] Supervisor: Reno Duron MD Glucose [Mass/Vol] 178 mg/dL High 74-99 [facility] Comment on above: Performed By: #### P RCAL #### [employer] [address] [place] [address] [employer] Supervisor: Reno Duron MD Potassium [Moles/Vol] 4.6 mmol/L Normal 3.7-5.3 [facility] Comment on above: Result Comment: Spec imen hemolysis has exceeded the interference as defined by Gwyn. Value may be falsely increased. Suggest recollection if clinically indicated. Performed By: #### P RCAL #### [employer] [address] [place] [phone] [employer] Supervisor: Reno Duron MD Protein [Mass/Vol] 6.6 g/dL Normal 6.6-8.7 [facility] Comment on above: Performed By: #### P RCAL #### [employer] [address] [place] [address] [employer] Supervisor: Reno Duron MD Sodium [Moles/Vol] 134 mmol/L Low 136-145 [facility] Comment on above: Performed By: #### P RCAL #### [facility] [address] [place], [place] [id number] [employer] Supervisor: Reno Duron MD Urea nitrogen [Mass/Vol] 22 mg/dL High 6-20 [facility] Comment on above: Performed By: #### P RCAL #### [facility] [address] [place], [place] [id number] [employer] Supervisor: Reno Duron MD Lactic Acidon 05-25-2025 Lactate (BldV) [Moles/Vol] 1.2 mmol/L 0.5 - 2.2 mmol/L [facility] Lactate [Moles/Vol] 1.2 mmol/L Normal 0.5-2.2 [facility] Comment on above: Performed By: #### C OVRB #### [facility] [address] [place] [address] [employer] Supervisor: Ziggy Hilario MD Lipaseon 05-25-2025 Lipase [Catalytic activity/Vol] 7 U/L Low 13 - 60 U/L [facility] Lipase [Catalytic activity/Vol] 7 U/L Low 13-60 [facility] Comment on above: Performed By: #### P RCAL #### [facility] [address] [place], [place] [id number] [employer] Supervisor: Reno Duron MD No Panel Informationon 05-25 Interpretation and review of laboratory results Abnormal [facility] Urinalysison 05-25-2025 Bilirubin Ql (U) Negative NEGATIVE [facility] Clarity (U) Clear Clear [facility] Color (U) Yellow Yellow [facility] Glucose Test strip (U) [Mass/Vol] Negative NEGATIVE mg/dL [facility] Hemoglobin Auto test strip Ql (U) Negative NEGATIVE [facility] Ketones (U) [Mass/Vol] Negative NEGATIVE mg/dL [facility] Leukocyte esterase Test strip Ql (U) Negative NEGATIVE [facility] Nitrite Ql (U) Negative NEGATIVE [facility] pH (U) 6.5 [pH] 5.0 - 9.0 [facility] Protein (U) [Mass/Vol] Negative NEGATIVE mg/dL [facility] Specific gravity (U) [Rel density] 1.01 1.010 - 1.020 [facility] Urobilinogen Qn (U) Normal 0.0 - 1. 0 EU/dL [facility] Urinalysis, Routineon 2024 Bilirubin, SemiQt,Ur Negative Normal NEG [facility] Comment on above: Performed By: #### P RCAL #### [address] [address] [employer] Supervisor: Reno Duron MD Blood, Urine Negative Normal NEG [facility] Comment on above: Performed By: #### P RCAL #### [facility] [employer] [address] [place] [phone] [employer] Supervisor: Reno Duron MD Clarity (U) Clear Normal CLEAR [facility] Comment on above: Performed By: #### P RCAL #### [facility] [employer] [address] [place] [address] [employer] Supervisor: Reno Duron MD Color (U) Yellow Normal YEL [facility] Comment on above: Performed By: #### P RCAL #### [facility] [address] [place] [address] [employer] Supervisor: Reno Duron MD Glucose Ql (U) Negative Normal NEG [facility] Comment on above: Performed By: #### P RCAL #### [facility] [employer] [address] [place] [address] [employer] Supervisor: Reno Duron MD Ketones Ql (U) Negative Normal NEG [facility] Comment on above: Performed By: #### P RCAL #### [facility] [address] [place] [address] [employer] Supervisor: Reno Duron MD Leukocyte esterase Test strip Ql (U) Negative Normal NEG [facility] Comment on above: Performed By: #### P RCAL #### [address] [address] [employer] Supervisor: Reno Duron MD Nitrite,Ur Negative Normal NEG [facility] Comment on above: Performed By: #### P RCAL #### [address] [address] [employer] Supervisor: Reno Duron MD PH,Ur 6.5 Normal 5.0-9.0 [facility] Comment on above: Performed By: #### P RCAL #### [address] [address] [employer] Supervisor: Reno Duron MD Protein Ql (U) Negative Normal NEG [facility] Comment on above: Performed By: #### P RCAL #### [address] [address] [employer] Supervisor: Reno Duron MD Spec. Monarch,Ur 1.010 Normal 1.010-1.020 [facility] Comment on above: Performed By: #### P RCAL #### [address] [address] [employer] Supervisor: Reno Duron MD Urobilinogen,Ur Normal Normal 0.0-1.0 [facility] Comment on above: Performed By: #### P RCAL #### [address] [address] [employer] Supervisor: Reno Duron MD XR Chest 2 Viewson Radiology Study observation (narrative) [facility] Cult,Urineon 05-14-2025 Cult,Urine Specimen Description .CLEAN CATCH URINE Special Requests Site: Urine Culture NO GROWTH Report Status FINAL 05/14/2025 Normal [facility] Comment on above: Performed By: #### U RC #### [address] [address] [employer] Supervisor: Reno Duron MD [facility] [address] [place] [address] [employer] Supervisor: Ziggy Hilario MD CNPNon 04-28-2025 CNPN Normal [facility] CNPNon 04-03-2025 CNPN Normal [facility] CNPNon 03-31-2025 CNPN Normal [facility] CNPNon 03-18-2025 CNPN Normal [facility] CNPNon 03-04-2025 CNPN Normal [facility] Gastroenterology Office/Clin ic Noteon 03-03-2025 Gastroenterology Office/Clinic Note History of Present Illness This is a 54-year-old man who presented to the GI clinic for follow-up Patient has pertinent history of recurrent pancreatitis-underwent EUS in 05/2019 which showed gallbladder sludge, small stone-cholecystectomy was performed on 07/11/2019. Patient reports being followed by GI both in [place], [place] [Dr. Alexander] patient states that he has had recurrent episodes of pancreatitis over the last 4 years-last admission for pancreatitis was in December 2023 at [facility]. Patient states that the pancreatitis was attributed to his underlying hypertriglyceridemia. Patient has been on fenofibrate, atorvastatin for his dyslipidemia. Patient subsequently developed another episode of pancreatitis in 01/2024 while visiting family in [place]. The clinical course at the time had improved with conservative management with IVF. Patient also has pertinent history of nondysplastic Dong's esophagus. Patient had a diagnostic EGD-EUS in 04/2024 which showed long segment Dong's esophagus [biopsies showed no evidence of dysplasia]; a 2 cm hiatal hernia; linear antral erythema; evidence of cholecystectomy; fatty liver; atrophic pancreas with PD measuring 7 mm in HOP, 15 x 10 mm cystic lesion in the TOP suggestive of possible underlying IPMN. Subsequent CT A/P with pancreatic protocol done on 05/23/2024 showed diffuse dilation of main PD with a maximal dilation in the tail of up to 1.3 cm with DDC including main duct IPMN, occult obstructing neoplasm or extra vacuo dilation related to pancreatic atrophy. EUS FNA done in 06/2024 8.1 and 8.3mm PD in the head in the body of the pancreas respectively; cystic dilation of the pancreatic duct at the tail of the pancreas 21.3 x 11.7 mm with few hyperechoic foci within the cyst. FNA was done. Patient was also noted to have long segment Dong's esophagus; 2cm hiatal hernia. Patient reports that he was subsequently referred to [facility] where he underwent a pancreatectomy for the above findings. Patient also reports that he is now type I diabetic and has been currently managed as the same Patient also has history of fatty liver [...] was recommended after optimal 2-day bowel preparation. Patient denies nausea, vomiting, abdominal pain, loss of appetite, early satiety , hematemesis, melena or hematochezia. However, reports mild intermittent predominant steatorrhea like symptoms. Patient was noted to have low fecal elastase of 130 as of 01/2024. 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 Pancreatic duct dilated Patient has pertinent history of recurrent pancreatitis Patient states that the pancreatitis was attributed to his underlying hypertriglyceridemia. Patient has been on fenofibrate, atorvastatin for his dyslipidemia. 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 IPMN]. Patient had a diagnostic EGD-EUS in 04/2024 which showed long segment Dong's esophagus [biopsies showed no evidence of dysplasia]; a 2 cm hiatal hernia; linear antral erythema; evidence of cholecystectomy; fatty liver; atrophic pancreas with PD measuring 7 mm in HOP, 15 x 10 mm cystic lesion in the TOP suggestive of possible underlying IPMN. Subsequent CT A/P with pancreatic protocol done on 05/23/2024 showed diffuse dilation of main PD with a maximal dilation in the tail of up to 1.3 cm with DDC including main duct IPMN, occult obstructing neoplasm or extra vacuo dilation related to pancreatic atrophy. EUS FNA done in 06/2024 d and 8 point millimeter in the head in the body of the pancreas respectively; cystic dilation of the pancreatic duct a (more content not included)... Normal [facility] XR HAND LEFT (MIN 3 VIEWS)on 02-24-2025 XR HAND LEFT (MIN 3 VIEWS) EXAMINATION: THREE XRAY VIEWS OF THE LEFT HAND 02/24/2025 11:50 am COMPARISON: 11/30/2024 HISTORY: ORDERING SYSTEM PROVIDED HISTORY: injury to 3rd and 4fth digits TECHNOLOGIST PROVIDED HISTORY: injury to 3rd and 4fth digits FINDINGS: No acute fracture or dislocation. Joint spaces and alignment are maintained. Soft tissues are unremarkable. IMPRESSION: No acute osseous abnormality. Interpreted by: Diana Curtis MD Signed by: Diana Curtis MD 02/24/25 Final result Normal [facility] XR Hand - left 3 Viewson No acute osseous abnormality. [facility] EXAMINATION: THREE XRAY VIEWS OF THE LEFT HAND 02/24/2025 11:50 am COMPARISON: 11/30/2024 HISTORY: ORDERING SYSTEM PROVIDED HISTORY: injury to 3rd and 4fth digits TECHNOLOGIST PROVIDED HISTORY: injury to 3rd and 4fth digits FINDINGS: No acute fracture or dislocation. Joint spaces and alignment are maintained. Soft tissues are unremarkable. [facility] Diana Curtis MD - 02/24/2025 EXAMINATION: THREE XRAY VIEWS OF THE LEFT HAND 02/24/2025 11:50 am COMPARISON: 11/30/2024 HISTORY: ORDERING SYSTEM PROVIDED HISTORY: injury to 3rd and 4fth digits TECHNOLOGIST PROVIDED HISTORY: injury to 3rd and 4fth digits FINDINGS: No acute fracture or dislocation. Joint spaces and alignment are maintained. Soft tissues are unremarkable. IMPRESSION: No acute osseous abnormality. [facility] Radiology Study observation (narrative) [facility] XR Hand - left 3 ViewsOrdere d By: Diananarendra Curtis on 02-24-2025 [facility] Work Phone: CT ABDOMEN PELVIS W IV CONTR Makayla 02-17-2025 CT ABDOMEN PELVIS W IV CONTRAST EXAMINATION: [...] Pelvis: The bladder is unremarkable. Normal prostate. Peritoneum/Retroperitoneu m: The aorta tapers normally. No lymph node enlargement. Bones/Soft Tissues: Prior kyphoplasty at L3 and also seen at T9. IMPRESSION: 1. No acute finding in the abdomen or pelvis to correlate to the patient's clinical symptoms. 2. Hepatic steatosis. 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 Interpreted by: Octavio Kwon IV, MD Signed by: Octavio Kwon IV, MD 02/17/25 Final result Normal [facility] CT Abdomen and Pelvis W cont rast Thee 02-17-2025 1. No acute finding in the abdomen or pelvis to correlate to the patient's clinical symptoms. 2. Hepatic steatosis. 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 [facility] EXAMINATION: CT OF THE ABDOMEN AND PELVIS [...] Pelvis: The bladder is unremarkable. Normal prostate. Peritoneum/Retroperitoneu m: The aorta tapers normally. No lymph node enlargement. Bones/Soft Tissues: Prior kyphoplasty at L3 and also seen at T9. [facility] Octavio Kwon IV, MD - 02/17/2025 EXAMINATION: CT [...] Pelvis: The bladder is unremarkable. Normal prostate. Peritoneum/Retroperitoneu m: The aorta tapers normally. No lymph node enlargement. Bones/Soft Tissues: Prior kyphoplasty at L3 and also seen at T9. IMPRESSION: 1. No acute finding in the abdomen or pelvis to correlate to the patient's clinical symptoms. 2. Hepatic steatosis. 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 [employer] CT Abdomen and Pelvis W cont rast IVOrdered By: Octavio Kwon on 02-17-2025 [employer] Work Phone: Basic Metabolic Panelon 01-21 Anion gap [Moles/Vol] 8 mmol/L Low 9 - 16 mmol/L [facility] Calcium [Mass/Vol] 9.9 mg/dL 8.6 - 10. 4 mg/dL [facility] Chloride [Moles/Vol] 100 mmol/L 98 - 10 7 mmol/L [facility] CO2 [Moles/Vol] 31 mmol/L 20 - 31 mmol/L [facility] Creatinine [Mass/Vol] 1.0 mg/dL 0.70 - 1.20 mg/dL [employer] Est, Glom Filt Rate - PINF [facility] [employer] Comment on above: These results are not [...] that affects renal tubular secretion. Glucose [Mass/Vol] 117 mg/dL High 74 - 99 mg/dL [facility] Interpretation and review of laboratory results Abnormal [facility] Potassium [Moles/Vol] 5.1 mmol/L 3.7 - 5.3 mmol/L [facility] Sodium [Moles/Vol] 139 mmol/L 136 - 145 mmol/L [facility] Urea nitrogen [Mass/Vol] 14 mg/dL 6 - 20 mg/dL [facility] Urea nitrogen/Creatinine [Mass ratio] 14 mg/mg 9 - 20 [facility] Basic Metabolic Profon 02-16 Anion gap [Moles/Vol] 8 mmol/L Low 9-16 [facility] Comment on above: Performed By: #### P RCAL #### [facility] [address] [place] [address] [employer] Supervisor: Reno Duron MD BUN/CRE Ratio 14 Normal 9-20 [facility] Comment on above: Performed By: #### P RCAL #### [facility] [address] [place] [address] [employer] Supervisor: Reno Duron MD Calcium [Mass/Vol] 9.9 mg/dL Normal 8.6-10.4 [facility] Comment on above: Performed By: #### P RCAL #### [address] [address] [employer] Supervisor: Reno Duron MD Chloride [Moles/Vol] 100 mmol/L Normal 98-107 [facility] Comment on above: Performed By: #### P RCAL #### [facility] [address] [place] [address] [employer] Supervisor: Reno Duron MD CO2 [Moles/Vol] 31 mmol/L Normal 20-31 [facility] Comment on above: Performed By: #### P RCAL #### [address] [address] [employer] Supervisor: Reno Duron MD Creatinine [Mass/Vol] 1.0 mg/dL Normal 0.70-1.20 [facility] Comment on above: Performed By: #### P RCAL #### [address] [address] [employer] Supervisor: Reno Duron MD GFR/1.73 sq M.predicted among non-blacks MDRD (S/P/Bld) [Vol rate/Area] mL/min/{1.73_m2} Normal >60 [facility] Comment on above: Result Comment: These results [...] affects renal tubular secretion. Performed By: #### P RCAL #### [facility] [address] [place] [address] [employer] Supervisor: Reno Duron MD Glucose [Mass/Vol] 117 mg/dL High 74-99 [facility] Comment on above: Performed By: #### P RCAL #### [address] [address] [employer] Supervisor: Reno Duron MD Potassium [Moles/Vol] 5.1 mmol/L Normal 3.7-5.3 [facility] Comment on above: Performed By: #### P RCAL #### [facility] [address] [place] [address] [employer] Supervisor: Reno Duron MD Sodium [Moles/Vol] 139 mmol/L Normal 136-145 [facility] Comment on above: Performed By: #### P RCAL #### [address] [address] [employer] Supervisor: Reno Duron MD Urea nitrogen [Mass/Vol] 14 mg/dL Normal 6-20 [facility] Comment on above: Performed By: #### P RCAL #### [facility] [employer] [address] [place] [address] [employer] Supervisor: Reno Duron MD CBC with Auto Differentialon 02-16-2025 Basophils (Bld) [#/Vol] 0.09 10*3/uL [facility] Basophils/100 WBC (Bld) 1 % 0 - 2 % [facility] Eosinophils (Bld) [#/Vol] 0.06 10*3/uL [facility] Eosinophils/100 WBC (Bld) 1 % 1 - 4 % [facility] Erythrocyte distribution width (RBC) [Ratio] 15.3 % High 11.8 - 14.4 % [facility] Hematocrit (Bld) [Volume fraction] 39.9 % Low 40.7 - 50.3 % [facility] Hemoglobin (Bld) [Mass/Vol] 12.5 g/dL Low 13.0 - 17.0 g/dL [facility] Immature granulocytes (Bld) [#/Vol] 0.04 10*3/uL [facility] Immature granulocytes/100 WBC (Bld) 0 % 0 [facility] Interpretation and review of laboratory results Abnormal [facility] Lymphocytes/100 WBC (Bld) 25 % 24 - 43 % [facility] Lymphocytes/100 WBC (Bld) 2.97 % [facility] MCH (RBC) [Entitic mass] 28 pg 25.2 - 33.5 pg [facility] MCHC (RBC) [Mass/Vol] 31.3 g/dL 28.4 - 34.8 g/dL [facility] MCV (RBC) [Entitic vol] 89.3 fL 82.6 - 102.9 fL [facility] Monocytes/100 WBC (Bld) 10 % 3 - 12 % [facility] Monocytes/100 WBC (Bld) 1.21 % High [facility] Neutrophils/100 WBC (Bld) 63 % 36 - 65 % [facility] Nucleated RBC/100 WBC (Bld) [Ratio] 0 % 0.0 per 100 WBC [facility] Platelet mean volume (Bld) [Entitic vol] 9.2 fL 8.1 - 13.5 fL [facility] Platelets (Bld) [#/Vol] 437 10*3/uL [facility] RBC (Bld) [#/Vol] 4.47 10*6/uL 4.21 - 5.7 7 m/uL [facility] Segmented neutrophils/100 WBC (Bld) 7.3 % [facility] WBC other (Bld) [#/Vol] 11.7 High [facility] CBC with Diffon 04-28-2025 Abs. Basophil 0.09 k/uL Normal 0.00-0.20 [facility] Comment on above: Performed By: #### P RCAL #### [address] [address] [employer] Supervisor: Reno Duron MD Abs.Imm.Granulocyte 0.04 k/uL Normal 0.00-0.30 [facility] Comment on above: Performed By: #### P RCAL #### [address] [address] [employer] Supervisor: Reno Duron MD Abs.Neutrophil (Seg) 7.30 k/uL Normal 1.50-8.10 [facility] Comment on above: Performed By: #### P RCAL #### [address] [address] [employer] Supervisor: Reno Duron MD Basophils/100 WBC (Bld) 1 % Normal 0-2 [facility] Comment on above: Performed By: #### P RCAL #### [address] [address] [employer] Supervisor: Reno Duron MD Eosinophils (Bld) [#/Vol] 0.06 10*3/uL Normal 0.00-0.44 [facility] Comment on above: Performed By: #### P RCAL #### [address] [address] [employer] Supervisor: Reno Duron MD Eosinophils/100 WBC (Bld) 1 % Normal 1-4 [facility] Comment on above: Performed By: #### P RCAL #### [address] [address] [employer] Supervisor: Reno Duron MD Erythrocyte distribution width (RBC) [Ratio] 15.3 % High 11.8-14.4 [facility] Comment on above: Performed By: #### P RCAL #### [address] [address] [employer] Supervisor: Reno Duron MD Hematocrit (Bld) [Volume fraction] 39.9 % Low 40.7-50.3 [facility] Comment on above: Performed By: #### P RCAL #### [address] [address] [employer] Supervisor: Reno Duron MD Hemoglobin (Bld) [Mass/Vol] 12.5 g/dL Low 13.0-17.0 [facility] Comment on above: Performed By: #### P RCAL #### [address] [address] [employer] Supervisor: Reno Duron MD Immature granulocytes/100 WBC (Bld) 0 % Normal 0 [facility] Comment on above: Performed By: #### P RCAL #### [address] [address] [employer] Supervisor: Reno Duron MD Lymphocytes (Bld) [#/Vol] 2.97 10*3/uL Normal 1.10-3.70 [facility] Comment on above: Performed By: #### P RCAL #### [address] [address] [employer] Supervisor: Reno Duron MD Lymphocytes/100 WBC (Bld) 25 % Normal 24-43 [facility] Comment on above: Performed By: #### P RCAL #### [address] [address] [employer] Supervisor: Reno Duron MD MCH (RBC) [Entitic mass] 28.0 pg Normal 25.2-33.5 [facility] Comment on above: Performed By: #### P RCAL #### [address] [address] [employer] Supervisor: Reno Duron MD MCHC (RBC) [Mass/Vol] 31.3 g/dL Normal 28.4-34.8 [facility] Comment on above: Performed By: #### P RCAL #### [address] [address] [employer] Supervisor: Reno Duron MD MCV (RBC) [Entitic vol] 89.3 fL Normal 82.6-102.9 [facility] Comment on above: Performed By: #### P RCAL #### [address] [address] [employer] Supervisor: Reno Duron MD Monocytes (Bld) [#/Vol] 1.21 10*3/uL High 0.10-1.20 [facility] Comment on above: Performed By: #### P RCAL #### [address] [address] [employer] Supervisor: Reno Duron MD Monocytes/100 WBC (Bld) 10 % Normal 3-12 [facility] Comment on above: Performed By: #### P RCAL #### [address] [address] [employer] Supervisor: Reno Duron MD Neutrophil (Seg) 63 % Normal 36-65 [facility] Comment on above: Performed By: #### P RCAL #### [address] [address] [employer] Supervisor: Reno Duron MD NRBC Automated 0.0 per 100 WBC Normal 0.0 [facility] Comment on above: Performed By: #### P RCAL #### [address] [address] [employer] Supervisor: Reno Duron MD Platelet mean volume (Bld) [Entitic vol] 9.2 fL Normal 8.1-13.5 [facility] Comment on above: Performed By: #### P RCAL #### [address] [address] [employer] Supervisor: Reno Duron MD Platelets (Bld) [#/Vol] 437 10*3/uL Normal 138-453 [facility] Comment on above: Performed By: #### P RCAL #### [facility] [address] [place] [address] [employer] Supervisor: Reno Duron MD RBC (Bld) [#/Vol] 4.47 10*6/uL Normal 4.21-5.77 [facility] Comment on above: Performed By: #### P RCAL #### [facility] [address] [place] [address] [employer] Supervisor: Reno Duron MD WBC (Bld) [#/Vol] 11.7 10*3/uL High 3.5-11.3 [facility] Comment on above: Performed By: #### P RCAL #### [facility] [address] [place] [address] [employer] Supervisor: Reno Duron MD CT Abdomen and Pelvis W cont rast Thee 02-16-2025 Radiology Study observation (narrative) [facility] ANES POSTPROC EVALon 025 ANES POSTPROC EVAL Normal [facility] ANES PRE-OPon 01-23-2025 ANES PRE-OP Normal [facility] EGD Study observation Narrat iveon 01-23-2025 [facility] Radiology Study observation (narrative) [facility] NURSING PROGon 01-23-2025 NURSING PROG Normal [facility] NURSING PROG Normal [facility] Pathology biopsy report Jacinto (Tiss)on 01-23-2025 ADDENDUM 1: Normal [facility] Comment on above: Order Comment: Speci men Type: TISSUE SPECIMENOrdering Facility: [facility] Address: [address] [place] [address] Result Comment: H. p ylori immunostain performed on the stomach biopsy (part a) to evaluate th chronic gastris is negative for organisms.Laboratory Developed Test (LDT) Disclaimer:Performance characteristics of immunohistochemical, immunofluorescent and chromogenic in-situ hybridization tests have been determined by the performing laboratory within [facility]???s [place] Pathology and Laboratory Medicine Department ([facility], [facility], [facility], [facility], [facility], [facility], or [facility]) in a manner consistent with CLIA requirements. One or more of these tests have not been cleared or approved by the FDA. [facility] is regulated under CLIA as qualified to perform high-complexity testing. These tests are used for clinical purposes. They should not be regarded as investigational or for research. Positive and negative controls stain appropriately.Addendum electronically signed by Octavio Chaidez MD on 01/27/2025 at 1442 EDT Performed By: #### 6 6121-5 ####[facility] LABORATORYCLIA [id number] [address] LABCLIA [id number] [address] [place] AP DISCLAIMER Normal [facility] Comment on above: Order Comment: Speci men Type: TISSUE SPECIMENOrdering Facility: [facility] Address: [address] [place] [address] Result Comment: Peter Morgan Test (LDT) Disclaimer:Performance characteristics of immunohistochemical, immunofluorescent, and chromogenic in-situ hybridization tests have been determined by the performing laboratory within [facility]'s [facility] Pathology and Laboratory Medicine Department ([facility], [facility], [facility], [facility], [facility], [facility], or [facility]) in a manner consistent with CLIA requirements. One or more of these tests may not have been cleared or approved by the FDA. [facility] is regulated under CLIA as qualified to perform high-complexity testing. These tests are used for clinical purposes. These should not be regarded as investigational or for research. Positive and negative controls stain appropriately. Performed By: #### 6 6121-5 ####[facility]ORATORYCLIA [id number] [address] OF [facility] LABCLIA [id number] [place] [address] [place] CASE REPORT Normal [facility] Comment on above: Order Comment: Speci men Type: TISSUE SPECIMENOrdering Facility: [facility] Address: [address] [place] [address] Result Comment: Surg [facility] Pathology Report Case: [id number] Provider: Dariusz Pratt MD Collected: 01/23/2025 03:29 PMOrdering Location: Gastroenterology Received: 01/23/2025 05:59 PMPathologist: Octavio Chaidez MDSpecimens: A) - Stomach, Biopsy B) - Esophagus, Biopsy, biopsy at 34 cm C) - Esophagus, Biopsy, biopsy at 32cm Performed By: #### 6 6121-5 ####[facility] LABORATORYCLIA [id number] [address] LABCLIA [id number] [address] [place] DIAGNOSIS COMMENT H. pylori immunostai n is pending on the stomach biopsy. Normal [facility] Comment on above: Order Comment: Speci men Type: TISSUE SPECIMENOrdering Facility: [facility] Address: [address] [place] [address] Performed By: #### 6 6121-5 ####[facility] LABORATORYCLIA [id number] [address] LABCLIA [id number] [address] [place] FINAL DIAGNOSIS Normal [facility] Comment on above: Order Comment: Speci men Type: TISSUE SPECIMENOrdering Facility: [facility] Address: [address] [place] [address] Result Comment: Angelika allen, biopsy:- Antral and fundic mucosa with chronic inactive gastritis; see comment.B. Esophagus at 34 cm, biopsy:- Dong's esophagus, negative for dysplasia.C. 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 at 1129 EDT Performed By: #### 6 6121-5 ####[facility] LABORATORYCLIA [id number] [address] LABCLIA [id number] [place] [address] [place] FINAL PERFORMING LAB Normal [facility] Comment on above: Order Comment: Speci men Type: TISSUE SPECIMENOrdering Facility: [facility] Address: [address] [place] [address] Result Comment: Diag nostic interpretation performed at: [facility], [address] [address] CLIA# [id number] Director: Whitney Leonardo MD Performed By: #### 6 6121-5 ####[facility] LABORATORYCLIA [id number] [address] LABCLIA [id number] [address] [place] GROSS DESCRIPTION Normal [facility] Comment on above: Order Comment: Speci men Type: TISSUE SPECIMENOrdering Facility: [facility] Address: [address] [place] [address] Result Comment: A. S tomach, BiopsyReceived in formalin is one piece of clemente-red, soft tissue measuring 0.5 x 0.4 x 0.2 cm. Totally submitted in one cassette.B. Esophagus, BiopsyReceived in formalin are two pieces of clemente-pink and red, soft tissue aggregating to 0.7 x 0.3 x 0.2 cm. Totally submitted in one cassette.C. Esophagus, BiopsyReceived in formalin are multiple pieces of clemente-white and red, soft tissue aggregating to 0.8 x 0.2 x 0.1 cm. Totally submitted in one cassette.AJB January 23, 2025 7:53 PMGross examination performed at [facility], [address] [place] [address] Performed By: #### 6 6121-5 ####[facility] LABORATORYCLIA [id number] [address] [facility] LABCLIA [id number] [place] [place] [id number] [place] Upper GI endoscopyon 025 Upper GI endoscopy Normal [facility] NURSING PROGon 01-16-2025 NURSING PROG Normal [facility] EGD Study observation Narrneisha james 01-05-2025 A31 Gastrointestinal Endoscopy Patient Name: Thomas Petty Procedure Date: 01/05/2025 2:57 PM Date of : 1970 Admit Type: Outpatient Age: 54 Room: [place] [address] Gender: Male Note Status: Finalized Attending MD: Remy Hardin MD, [id number] Procedure: Upper GI endoscopy Indications: Bloating Providers: Remy Hardin MD, Ajith Radford (Fellow) Referring Physician: Kassidy Jacobson MD (Referring MD) Medicines: Fentanyl 100 [...] previously scheduled. Procedure Code(s): --- Professional --- 05707, 52, Esophagogastroduodenoscop y, flexible, transoral; diagnostic, including collection of specimen(s) by brushing or washing, when performed (separate procedure) CPT copyright 2020 [employer]. All rights (more content not included)... [employer]ATION [facility] Radiology Study observation (narrative) [facility] HISTORY PHYSICALon HISTORY PHYSICAL Normal [facility] NURSING PROGon 01-05-2025 NURSING PROG Normal [facility] NURSING PROG Normal [facility] Upper GI endoscopyon 025 Upper GI endoscopy Normal [facility] CNPNon 12-29-2024 CNPN Normal [facility] NURSING PROGon 12-29-2024 NURSING PROG Normal [facility] XR CHEST (2 VW)on 12-24-2024 XR CHEST (2 VW) EXAMINATION: TWO XRAY VIEWS OF THE CHEST 12/24/2024 12:30 pm COMPARISON: 08/08/2024 HISTORY: ORDERING SYSTEM PROVIDED HISTORY: Influenza A TECHNOLOGIST PROVIDED HISTORY: Influenza A, Respiratory difficulties FINDINGS: The lungs are without acute focal process. There is no effusion or pneumothorax. The cardiomediastinal silhouette is stable. The osseous structures are stable. IMPRESSION: No acute process. Interpreted by: Lauri Billy MD Signed by: Lauri Billy MD 12/24/24 Final result Normal [facility] XR Chest 2 Viewson No acute process. [facility] RIS CONSOLIDATED EXAMINATION: TWO XRAY VIEWS OF THE CHEST 12/24/2024 12:30 pm COMPARISON: 08/08/2024 HISTORY: ORDERING SYSTEM PROVIDED HISTORY: Influenza A TECHNOLOGIST PROVIDED HISTORY: Influenza A, Respiratory difficulties FINDINGS: The lungs are without acute focal process. There is no effusion or pneumothorax. The cardiomediastinal silhouette is stable. The osseous structures are stable. [facility] CONSOLIDATED Lauri Billy MD - 12/24/2024 EXAMINATION: TWO XRAY VIEWS OF THE CHEST 12/24/2024 12:30 pm COMPARISON: 08/08/2024 HISTORY: ORDERING SYSTEM PROVIDED HISTORY: Influenza A TECHNOLOGIST PROVIDED HISTORY: Influenza A, Respiratory difficulties FINDINGS: The lungs are without acute focal process. There is no effusion or pneumothorax. The cardiomediastinal silhouette is stable. The osseous structures are stable. IMPRESSION: No acute process. [facility] Radiology Study observation (narrative) [facility] XR Chest 2 ViewsOrdered By: Lauri Billy on 12-24-2024 [facility] Work Phone: Cult,Urineon 12-19-2024 Cult,Urine Specimen Description .CLEAN CATCH URINE Special Requests Site: Urine Culture NO GROWTH Report Status FINAL 12/19/2024 Normal [facility] Comment on above: Performed By: #### C MPX, CDP #### [facility] [address] [place] [address] [employer] Supervisor: Ziggy Hilario MD Stool PCR Batter[place] 12-17-19 25 Campylobacter sp PCR NEGATIVE: No Campylobacter spp. (jejuni or coli) DNA Detected Normal CAMNEG [facility] Comment on above: Performed By: #### S TLPCR #### [facility] [employer] [address] [place] [address] [employer] Supervisor: Reno Duron MD [facility] [address] [place] [address] [place] [place], [place] [id number] [employer] Supervisor: Ziggy Hilario MD E coli enterotox PCR NEGATIVE: No Enterotoxigenic E. coli (ETEC) Heat-labile and heat-stable (LT/ST) Normal [facility] Comment on above: Result Comment: DNA Detected Performed By: #### S TLPCR #### [facility] [address] [place] [address] [employer] Supervisor: Reno Duron MD [facility] [address] [place] [address] [address]. [place], [place] [id number] [employer] Supervisor: Ziggy Hilario MD Plesiomonas sp PCR Negative [facility] Comment on above: Performed By: #### S TLPCR #### [address] [address] [employer] Supervisor: Reno Duron MD [facility] [address] [place] [address] [place] [address] [employer] Supervisor: Ziggy Hilario MD Salmonella sp PCR Negative [facility] Comment on above: Performed By: #### S TLPCR #### [address] [address] [employer] Supervisor: Reno Duron MD [facility] [address] [place] [address] [place] [address] [employer] Supervisor: Ziggy Hilario MD Shigatoxin gene PCR Negative [facility] Comment on above: Performed By: #### S TLPCR #### [address] [address] [employer] Supervisor: Reno Duron MD [facility] [address] [place] [address] [place] [address] [employer] Supervisor: Ziggy Hilario MD Shigella sp PCR Negative Normal [facility] Comment on above: Performed By: #### S TLPCR #### [facility] [address] [place] [address] [employer] Supervisor: Reno Duron MD [facility] [address] [place] [address] Dr. [place], [place] [address] [employer] Supervisor: Ziggy Hilario MD Vibrio sp PCR NEGATIVE: No Vibrio (V. vulnificus, V, parahaemolyticus and V. cholerae) DNA Normal VIBNEG [facility] Comment on above: Result Comment: Dete cted Performed By: #### S TLPCR #### [facility] [address] [place] [address] [employer] Supervisor: Reno Duron MD [facility] [address] [place] [address] [place] [address] [employer] Supervisor: Ziggy Hilario MD Yersinia gene PCR Negative Normal YERNEG [facility] Comment on above: Performed By: #### S TLPCR #### [facility] [address] [place] [address] [employer] Supervisor: Reno Duron MD [facility] [address] [place] [address] [place] [address] [employer] Supervisor: Ziggy Hilario MD Stool PCR [place] 12-16-19 Specimen Description .FECES Normal [facility] Comment on above: Performed By: #### S TLPCR #### [facility] [address] [place] [address] [employer] Supervisor: Reno Duron MD [facility] [address] [place] [address] [place] [address] [employer] Supervisor: Ziggy Hilario MD CBC with Diffon 12-05-2024 Basophils (Bld) [#/Vol] 0.11 10*3/uL [facility] Basophils/100 WBC (Bld) 1 % 0 - 2 % [facility] Eosinophils (Bld) [#/Vol] 0.06 10*3/uL [facility] Eosinophils/100 WBC (Bld) 1 % 1 - 4 % [facility] Erythrocyte distribution width (RBC) [Ratio] 14.8 % High 11.8 - 14.4 % [facility] Hematocrit (Bld) [Volume fraction] 38.6 % Low 40.7 - 50.3 % [facility] Hemoglobin (Bld) [Mass/Vol] 12.4 g/dL Low 13.0 - 17.0 g/dL [facility] Immature granulocytes (Bld) [#/Vol] 0.05 10*3/uL [facility] Immature granulocytes/100 WBC (Bld) 0 % 0 [facility] Interpretation and review of laboratory results Abnormal [facility] Lymphocytes/100 WBC (Bld) 24 % 24 - 43 % [facility] Lymphocytes/100 WBC (Bld) 2.95 % [facility] MCH (RBC) [Entitic mass] 26.9 pg 25.2 - 33.5 pg [facility] MCHC (RBC) [Mass/Vol] 32.1 g/dL 28.4 - 34.8 g/dL [facility] MCV (RBC) [Entitic vol] 83.7 fL 82.6 - 102.9 fL [facility] Monocytes/100 WBC (Bld) 10 % 3 - 12 % [facility] Monocytes/100 WBC (Bld) 1.19 % [facility] Neutrophils/100 WBC (Bld) 64 % 36 - 65 % [facility] Nucleated RBC/100 WBC (Bld) [Ratio] 0.0 % 0.0 per 100 WBC [facility] Platelet mean volume (Bld) [Entitic vol] 9.4 fL 8.1 - 13.5 fL [facility] Platelets (Bld) [#/Vol] 538 10*3/uL High [facility] RBC (Bld) [#/Vol] 4.61 10*6/uL 4.21 - 5.7 7 m/uL [facility] Segmented neutrophils/100 WBC (Bld) 7.72 % [facility] WBC other (Bld) [#/Vol] 12.1 High [facility] Abs. Basophil 0.11 k/uL Normal 0.00-0.20 [facility] Comment on above: Performed By: #### C MPX, CDP #### [facility] [address] [place], [place] [id number] [employer] Supervisor: Ziggy Hilario MD Abs.Imm.Granulocyte 0.05 k/uL Normal 0.00-0.30 [facility] Comment on above: Performed By: #### C MPX, CDP #### [facility] [address] [place], [place] [id number] [employer] Supervisor: Ziggy Hilario MD Abs.Neutrophil (Seg) 7.72 k/uL Normal 1.50-8.10 [facility] Comment on above: Performed By: #### C MPX, CDP #### [address] [place], [facility] [employer] Supervisor: Ziggy Hilario MD Basophils/100 WBC (Bld) 1 % Normal 0-2 [facility] Comment on above: Performed By: #### C MPX, CDP #### [address] [place], [place] [id number] [employer] Supervisor: Ziggy Hilario MD Eosinophils (Bld) [#/Vol] 0.06 10*3/uL Normal 0.00-0.44 [facility] Comment on above: Performed By: #### C MPX, CDP #### [facility] [address] [place], [place] [id number] [employer] Supervisor: Ziggy Hilario MD Eosinophils/100 WBC (Bld) 1 % Normal 1-4 [facility] Comment on above: Performed By: #### C MPX, CDP #### [facility] [address] [place], [place] [id number] [employer] Supervisor: Ziggy Hilario MD Erythrocyte distribution width (RBC) [Ratio] 14.8 % High 11.8-14.4 [facility] Comment on above: Performed By: #### C MPX, CDP #### [facility] [address] [place], [facility] [employer] Supervisor: Ziggy Hilario MD Hematocrit (Bld) [Volume fraction] 38.6 % Low 40.7-50.3 [facility] Comment on above: Performed By: #### C MPX, CDP #### [facility] [address] [place], [facility] [employer] Supervisor: Ziggy Hilario MD Hemoglobin (Bld) [Mass/Vol] 12.4 g/dL Low 13.0-17.0 [facility] Comment on above: Performed By: #### C MPX, CDP #### [facility] [address] [place], [facility] [employer] Supervisor: Ziggy Hilario MD Immature granulocytes/100 WBC (Bld) 0 % Normal 0 [facility] Comment on above: Performed By: #### C MPX, CDP #### [facility] [address] [place], [facility] [employer] Supervisor: Ziggy Hilario MD Lymphocytes (Bld) [#/Vol] 2.95 10*3/uL Normal 1.10-3.70 [facility] Comment on above: Performed By: #### C MPX, CDP #### [facility] [address] [place], [facility] [employer] Supervisor: Ziggy Hilario MD Lymphocytes/100 WBC (Bld) 24 % Normal 24-43 [facility] Comment on above: Performed By: #### C MPX, CDP #### [facility] [address] [place] [address] [employer] Supervisor: Ziggy Hilario MD MCH (RBC) [Entitic mass] 26.9 pg Normal 25.2-33.5 [facility] Comment on above: Performed By: #### C MPX, CDP #### [facility] [address] [place], [place] [address] [employer] Supervisor: Ziggy Hilario MD MCHC (RBC) [Mass/Vol] 32.1 g/dL Normal 28.4-34.8 [facility] Comment on above: Performed By: #### C MPX, CDP #### [facility] [address] [place], [place] [address] [employer] Supervisor: Ziggy Hilario MD MCV (RBC) [Entitic vol] 83.7 fL Normal 82.6-102.9 [facility] Comment on above: Performed By: #### C MPX, CDP #### [facility] [address] [place] [address] [employer] Supervisor: Ziggy Hilario MD Monocytes (Bld) [#/Vol] 1.19 10*3/uL Normal 0.10-1.20 [facility] Comment on above: Performed By: #### C MPX, CDP #### [facility] [address] [place], [place] [id number] [employer] Supervisor: Ziggy Hilario MD Monocytes/100 WBC (Bld) 10 % Normal 3-12 [facility] Comment on above: Performed By: #### C MPX, CDP #### [facility] [address] [place], [place] [address] [employer] Supervisor: Ziggy Hilario MD Neutrophil (Seg) 64 % Normal 36-65 [facility] Comment on above: Performed By: #### C MPX, CDP #### [facility] [address] [place] [address] [employer] Supervisor: Ziggy Hilario MD NRBC Automated 0.0 per 100 WBC Normal 0.0 [facility] Comment on above: Performed By: #### C MPX, CDP #### [facility] [address] [place] [address] [employer] Supervisor: Ziggy Hilario MD Platelet mean volume (Bld) [Entitic vol] 9.4 fL Normal 8.1-13.5 [facility] Comment on above: Performed By: #### C MPX, CDP #### [facility] [address] [place], [place] [id number] [employer] Supervisor: Ziggy Hilario MD Platelets (Bld) [#/Vol] 538 10*3/uL High 138-453 [facility] Comment on above: Performed By: #### C MPX, CDP #### [facility] [address] [place], [place] [id number] [employer] Supervisor: Ziggy Hilario MD RBC (Bld) [#/Vol] 4.61 10*6/uL Normal 4.21-5.77 [facility] Comment on above: Performed By: #### C MPX, CDP #### [facility] [address] [place], [place] [id number] [employer] Supervisor: Ziggy Hilario MD WBC (Bld) [#/Vol] 12.1 10*3/uL High 3.5-11.3 [facility] Comment on above: Performed By: #### C MPX, CDP #### [facility] [address] [place] [address] [employer] Supervisor: Ziggy Hilario MD [facility] 12-05-2024 Albumin [Mass/Vol] 4.4 g/dL 3.5 - 5.2 g/dL [facility] Albumin/Globulin [Mass ratio] 1.8 {ratio} 1.0 - 2.5 [facility] ALP [Catalytic activity/Vol] 149 U/L High 40 - 129 U/L [facility] ALT [Catalytic activity/Vol] 47 U/L 10 - 50 U/L [facility] Anion gap [Moles/Vol] 10 mmol/L 9 - 16 mmol/L [facility] AST [Catalytic activity/Vol] 37 U/L 10 - 50 U/L [facility] Bilirubin [Mass/Vol] 0.2 mg/dL 0.00 - 1.20 mg/dL [facility] Calcium [Mass/Vol] 9.6 mg/dL 8.6 - 10. 4 mg/dL [facility] Chloride [Moles/Vol] 101 mmol/L 98 - 10 7 mmol/L [facility] CO2 [Moles/Vol] 27 mmol/L 20 - 31 mmol/L [facility] Creatinine [Mass/Vol] 0.9 mg/dL 0.70 - 1.20 mg/dL [facility] Est, Yoon Cernat Rate - PINF [facility] Comment on above: These results are not [...] that affects renal tubular secretion. Glucose [Mass/Vol] 146 mg/dL High 74 - 99 mg/dL [facility] Potassium [Moles/Vol] 4.3 mmol/L 3.7 - 5.3 mmol/L [facility] Protein [Mass/Vol] 6.7 g/dL 6.6 - 8.7 g/dL [facility] Sodium [Moles/Vol] 138 mmol/L 136 - 145 mmol/L [facility] Urea nitrogen [Mass/Vol] 10 mg/dL 6 - 20 mg/dL [facility] Urea nitrogen/Creatinine [Mass ratio] 11 mg/mg 9 - [address] [facility] [address] CHEST ABDOMEN PELVIS W CO NTRASTon 12-05-2024 CT CHEST ABDOMEN PELVIS W CONTRAST EXAMINATION: CT OF THE CHEST, ABDOMEN, AND PELVIS WITH CONTRAST 12/05/2024 2:17 pm TECHNIQUE: CT of the chest, abdomen and pelvis was performed with the administration of intravenous contrast. Multiplanar reformatted images are provided for review. Automated exposure control, iterative reconstruction, and/or weight based adjustment of the mA/kV was utilized to reduce the radiation dose to as low as reasonably achievable. COMPARISON: None HISTORY: ORDERING SYSTEM PROVIDED HISTORY: abd pain and right sided rib pain TECHNOLOGIST PROVIDED HISTORY: abd pain and right sided rib pain Decision Support Exception - unselect if not a suspected or confirmed emergency medical condition->Emergency Medical Condition (MA) FINDINGS: Lungs and Airways: Central airways are patent. No focal consolidation. No suspicious nodule or mass. Bibasilar subsegmental atelectasis. Pleura: No pleural effusion. No pneumothorax. Lymph nodes: No pathologically enlarged mediastinal, lower cervical, or chest wall lymph nodes. Cardiovascular and Mediastinum: Heart size is normal. Physiologic volume of pericardial fluid. The thyroid gland is unremarkable. The esophagus is unremarkable. Liver: Liver is steatotic. Biliary: Status post cholecystectomy and choledocho jejunostomy. Small volume pneumobilia. Spleen: Surgically absent. Pancreas: Postoperative changes following Whipple. Adrenal Glands: Normal morphology. Kidneys / Ureters: Kidneys enhance symmetrically. No hydronephrosis. No focal renal mass. No urinary calculi. GI/Bowel: Stomach, small and large bowel are normal in caliber. No pathologic wall thickening is evident. No perienteric inflammatory change. Status post appendectomy. Peritoneum/Retroperitoneu m: No lymphadenopathy or ascites is present. Aorta/IVC: Aorta is normal in caliber. No evidence of aneurysm. Unremarkable IVC. Bladder: Nondistended. Bones/Soft Tissues: Exaggerated thoracic kyphosis. Status post multilevel vertebral body augmentation. Status post sternal ORIF with plate and screw construct. No evident hardware complication. IMPRESSION: Postoperative changes as described without complicating features evident. No CT findings to explain abdominal or right-sided rib pain. Interpreted by: Fantasma Chanel MD Signed by: Fantasma Chanel MD 12/05/24 Final result Normal [facility] CT Chest and Abdomen and Pel vis W contrast Thee 12-05-2024 Postoperative change s as described without complicating features evident. No CT findings to explain abdominal or right-sided rib pain. [facility] RIS CONSOLIDATED EXAMINATION: CT OF THE CHEST, ABDOMEN, AND PELVIS WITH CONTRAST 12/05/2024 2:17 pm TECHNIQUE: CT of the chest, abdomen and pelvis was performed with the administration of intravenous contrast. Multiplanar reformatted images are provided for review. Automated exposure control, iterative reconstruction, and/or weight based adjustment of the mA/kV was utilized to reduce the radiation dose to as low as reasonably achievable. COMPARISON: None HISTORY: ORDERING SYSTEM PROVIDED HISTORY: abd pain and right sided rib pain TECHNOLOGIST PROVIDED HISTORY: abd pain and right sided rib pain Decision Support Exception - unselect if not a suspected or confirmed emergency medical condition->Emergency Medical Condition (MA) FINDINGS: Lungs and Airways: Central airways are patent. No focal consolidation. No suspicious nodule or mass. Bibasilar subsegmental atelectasis. Pleura: No pleural effusion. No pneumothorax. Lymph nodes: No pathologically enlarged mediastinal, lower cervical, or chest wall lymph nodes. Cardiovascular and Mediastinum: Heart size is normal. Physiologic volume of pericardial fluid. The thyroid gland is unremarkable. The esophagus is unremarkable. Liver: Liver is steatotic. Biliary: Status post cholecystectomy and choledocho jejunostomy. Small volume pneumobilia. Spleen: Surgically absent. Pancreas: Postoperative changes following Whipple. Adrenal Glands: Normal morphology. Kidneys / Ureters: Kidneys enhance symmetrically. No hydronephrosis. No focal renal mass. No urinary calculi. GI/Bowel: Stomach, small and large bowel are normal in caliber. No pathologic wall thickening is evident. No perienteric inflammatory change. Status post appendectomy. Peritoneum/Retroperitoneu m: No lymphadenopathy or ascites is present. Aorta/IVC: Aorta is normal in caliber. No evidence of aneurysm. Unremarkable IVC. Bladder: Nondistended. Bones/Soft Tissues: Exaggerated thoracic kyphosis. Status post multilevel vertebral body augmentation. Status post sternal ORIF with plate and screw construct. No evident hardware complication. [facility] RIS CONSOLIDATED Fantasma Chanel MD - 12/05/2024 EXAMINATION: CT OF THE CHEST, ABDOMEN, AND PELVIS WITH CONTRAST 12/05/2024 2:17 pm TECHNIQUE: CT of the chest, abdomen and pelvis was performed with the administration of intravenous contrast. Multiplanar reformatted images are provided for review. Automated exposure control, iterative reconstruction, and/or weight based adjustment of the mA/kV was utilized to reduce the radiation dose to as low as reasonably achievable. COMPARISON: None HISTORY: ORDERING SYSTEM PROVIDED HISTORY: abd pain and right sided rib pain TECHNOLOGIST PROVIDED HISTORY: abd pain and right sided rib pain Decision Support Exception - unselect if not a suspected or confirmed emergency medical condition->Emergency Medical Condition (MA) FINDINGS: Lungs and Airways: Central airways are patent. No focal consolidation. No suspicious nodule or mass. Bibasilar subsegmental atelectasis. Pleura: No pleural effusion. No pneumothorax. Lymph nodes: No pathologically enlarged mediastinal, lower cervical, or chest wall lymph nodes. Cardiovascular and Mediastinum: Heart size is normal. Physiologic volume of pericardial fluid. The thyroid gland is unremarkable. The esophagus is unremarkable. Liver: Liver is steatotic. Biliary: Status post cholecystectomy and choledocho jejunostomy. Small volume pneumobilia. Spleen: Surgically absent. Pancreas: Postoperative changes following Whipple. Adrenal Glands: Normal morphology. Kidneys / Ureters: Kidneys enhance symmetrically. No hydronephrosis. No focal renal mass. No urinary calculi. GI/Bowel: Stomach, small and large bowel are normal in caliber. No pathologic wall thickening is evident. No perienteric inflammatory change. Status post appendectomy. Peritoneum/Retroperitoneu m: No lymphadenopathy or ascites is present. Aorta/IVC: Aorta is normal in caliber. No evidence of aneurysm. Unremarkable IVC. Bladder: Nondistended. Bones/Soft Tissues: Exaggerated thoracic kyphosis. Status post multilevel vertebral body augmentation. Status post sternal ORIF with plate and screw construct. No evident hardware complication. IMPRESSION: Postoperative changes as described without complicating features evident. No CT findings to explain abdominal or right-sided rib pain. [facility] Radiology Study observation (narrative) [facility] CT Chest and Abdomen and Pel vis W contrast IVOrdered By: Fantasma Chanel on 12-05-2024 [facility] Work Phone: Comp Metabolic Profon 2024 Albumin [Mass/Vol] 4.4 g/dL Normal 3.5-5.2 [facility] Comment on above: Performed By: #### C MPX, CDP #### [facility] [address] [place] [address] [employer] Supervisor: Ziggy Hilario MD Albumin/Glob Ratio 1.8 Normal 1.0-2.5 [facility] Comment on above: Performed By: #### C MPX, CDP #### [facility] [address] [place] [address] [employer] Supervisor: Ziggy Hilario MD Alkaline Phos 149 U/L High 40-129 [facility] Comment on above: Performed By: #### C MPX, CDP #### [facility] [address] [place] [address] [employer] Supervisor: Ziggy Hilario MD ALT [Catalytic activity/Vol] 47 U/L Normal 10-50 [facility] Comment on above: Performed By: #### C MPX, CDP #### [facility] [address] [place], [place] [id number] [employer] Supervisor: Ziggy Hilario MD Anion gap [Moles/Vol] 10 mmol/L Normal 9-16 [facility] Comment on above: Performed By: #### C MPX, CDP #### [facility] [address] [place], [place] [id number] [employer] Supervisor: Ziggy Hilario MD AST [Catalytic activity/Vol] 37 U/L Normal 10-50 [facility] Comment on above: Performed By: #### C MPX, CDP #### [facility] [address] [place], [place] [id number] [employer] Supervisor: Ziggy Hilario MD Bilirubin [Mass/Vol] 0.2 mg/dL Normal 0.00-1.20 [facility] Comment on above: Performed By: #### C MPX, CDP #### [facility] [address] [place], [place] [id number] [employer] Supervisor: Ziggy Hilario MD BUN/CRE Ratio 11 Normal 9-20 [facility] Comment on above: Performed By: #### C MPX, CDP #### [facility] [address] [place] [address] [employer] Supervisor: Ziggy Hilario MD Calcium [Mass/Vol] 9.6 mg/dL Normal 8.6-10.4 [facility] Comment on above: Performed By: #### C MPX, CDP #### [facility] [address] [place] [address] [employer] Supervisor: Ziggy Hilario MD Chloride [Moles/Vol] 101 mmol/L Normal 98-107 [facility] Comment on above: Performed By: #### C MPX, CDP #### [facility] [address] [place], [place] [id number] [employer] Supervisor: Ziggy Hilario MD CO2 [Moles/Vol] 27 mmol/L Normal 20-31 [facility] Comment on above: Performed By: #### C MPX, CDP #### [facility] [address] [place] [address] [employer] Supervisor: Ziggy Hilario MD Creatinine [Mass/Vol] 0.9 mg/dL Normal 0.70-1.20 [facility] Comment on above: Performed By: #### C MPX, CDP #### [facility] [address] [place] [address] [place] [place], [place] [id number] [employer] Supervisor: Ziggy Hilario MD GFR/1.73 sq M.predicted among non-blacks MDRD (S/P/Bld) [Vol rate/Area] mL/min/{1.73_m2} Normal >60 [facility] Comment on above: Result Comment: These results [...] renal tubular secretion. Performed By: #### C MPX, CDP #### [address] [place] [address] [employer] Supervisor: Ziggy Hilario MD Glucose [Mass/Vol] 146 mg/dL High 74-99 [facility] Comment on above: Performed By: #### C MPX, CDP #### [facility] [address] [place] [id number] [employer] Supervisor: Ziggy Hilario MD Potassium [Moles/Vol] 4.3 mmol/L Normal 3.7-5.3 [facility] Comment on above: Performed By: #### C MPX, CDP #### [facility] [address] [place], [place] [id number] [employer] Supervisor: Ziggy Hilario MD Protein [Mass/Vol] 6.7 g/dL Normal 6.6-8.7 [facility] Comment on above: Performed By: #### C MPX, CDP #### [facility] [address] [place], [place] [id number] [employer] Supervisor: Ziggy Hilario MD Sodium [Moles/Vol] 138 mmol/L Normal 136-145 [facility] Comment on above: Performed By: #### C MPX, CDP #### [facility] [address] [place], [place] [id number] [employer] Supervisor: Ziggy Hilario MD Urea nitrogen [Mass/Vol] 10 mg/dL Normal 6-20 [facility] Comment on above: Performed By: #### C MPX, CDP #### [facility] [address] [place], [place] [id number] [employer] Supervisor: Ziggy Hilario MD Lactic Acidon 12-05-2024 Lactate (BldV) [Moles/Vol] 1.2 mmol/L 0.5 - 2.2 mmol/L [facility] Lactate [Moles/Vol] 1.2 mmol/L Normal 0.5-2.2 [facility] Comment on above: Performed By: #### C MPX, CDP #### [facility] [address] [place] [address] [employer] Supervisor: Ziggy Hilario MD Lipaseon 12-05-2024 Lipase [Catalytic activity/Vol] 7 U/L Low 13 - 60 U/L [facility] Lipase [Catalytic activity/Vol] 7 U/L Low 13-60 [facility] Comment on above: Performed By: #### C MPX, CDP #### [facility] [address] [place] [address] [employer] Supervisor: Ziggy Hilario MD No Panel Informationon 12-05 Interpretation and review of laboratory results Abnormal [facility] CNPNon 12-04-2024 CNPN Normal [facility] CNPNon 12-01-2024 CNPN Normal [facility] XR ELBOW LEFT (MIN 3 VIEWS)o n 12-01-2024 XR ELBOW LEFT (MIN 3 VIEWS) EXAMINATION: THREE XRAY VIEWS OF THE LEFT HAND; THREE XRAY VIEWS OF THE LEFT ELBOW 11/30/2024 2:52 pm; 11/30/2024 2:53 pm COMPARISON: None. HISTORY: ORDERING SYSTEM PROVIDED HISTORY: injury, pain TECHNOLOGIST PROVIDED HISTORY: injury, pain FINDINGS: Left elbow: No acute fracture or dislocation. Joint spaces and alignment are maintained. Soft tissues are unremarkable. No definite joint effusion. Tiny olecranon process enthesophyte. Left hand: The limited evaluation of the distal radius and ulna due to watch in place. No acute fracture or dislocation. Joint spaces and alignment are maintained. Soft tissues are unremarkable. Mild dorsal soft tissue swelling. IMPRESSION: 1. No acute osseous abnormality of the left elbow or left hand. Interpreted by: Diana Curtis MD Signed by: Diana Curtis MD 12/01/24 Final result Normal [facility] XR HAND LEFT (MIN 3 VIEWS)on 12-01-2024 XR HAND LEFT (MIN 3 VIEWS) EXAMINATION: THREE XRAY VIEWS OF THE LEFT HAND; THREE XRAY VIEWS OF THE LEFT ELBOW 11/30/2024 2:52 pm; 11/30/2024 2:53 pm COMPARISON: None. HISTORY: ORDERING SYSTEM PROVIDED HISTORY: injury, pain TECHNOLOGIST PROVIDED HISTORY: injury, pain FINDINGS: Left elbow: No acute fracture or dislocation. Joint spaces and alignment are maintained. Soft tissues are unremarkable. No definite joint effusion. Tiny olecranon process enthesophyte. Left hand: The limited evaluation of the distal radius and ulna due to watch in place. No acute fracture or dislocation. Joint spaces and alignment are maintained. Soft tissues are unremarkable. Mild dorsal soft tissue swelling. IMPRESSION: 1. No acute osseous abnormality of the left elbow or left hand. Interpreted by: Diana Curtis MD Signed by: Diana Curtis MD 12/01/24 Final result Normal [facility] CT THORACIC SPINE WO CONTRAS Ton 11-30-2024 CT THORACIC SPINE WO CONTRAST EXAMINATION: CT OF THE THORACIC SPINE WITHOUT CONTRAST 11/30/2024 4:26 pm: TECHNIQUE: CT of the thoracic spine was performed without the administration of intravenous contrast. Multiplanar reformatted images are provided for review. Automated exposure control, iterative reconstruction, and/or weight based adjustment of the mA/kV was utilized to reduce the radiation dose to as low as reasonably achievable. COMPARISON: 08/11/2024 HISTORY: ORDERING SYSTEM PROVIDED HISTORY: injury TECHNOLOGIST PROVIDED HISTORY: injury Reason for Exam: Fall FINDINGS: BONES/ALIGNMENT: There is normal alignment of the spine. Status post multilevel vertebral augmentation. No acute fracture. No osseous destructive lesion is seen. DEGENERATIVE CHANGES: No gross spinal canal stenosis or bony neural foraminal narrowing of the thoracic spine. SOFT TISSUES: Fatty liver. IMPRESSION: 1. No acute osseous abnormality. 2. Fatty liver. Interpreted by: Bebeto Ring MD Signed by: Bebeto Ring MD 11/30/24 Final result Normal [facility] CT Thoracic spine WO [facility] 11-30-2024 1. No acute osseous abnormality. 2. Fatty liver. [facility] CONSOLIDATED EXAMINATION: CT OF THE THORACIC SPINE WITHOUT CONTRAST 11/30/2024 4:26 pm: TECHNIQUE: CT of the thoracic spine was performed without the administration of intravenous contrast. Multiplanar reformatted images are provided for review. Automated exposure control, iterative reconstruction, and/or weight based adjustment of the mA/kV was utilized to reduce the radiation dose to as low as reasonably achievable. COMPARISON: 08/11/2024 HISTORY: ORDERING SYSTEM PROVIDED HISTORY: injury TECHNOLOGIST PROVIDED HISTORY: injury Reason for Exam: Fall FINDINGS: BONES/ALIGNMENT: There is normal alignment of the spine. Status post multilevel vertebral augmentation. No acute fracture. No osseous destructive lesion is seen. DEGENERATIVE CHANGES: No gross spinal canal stenosis or bony neural foraminal narrowing of the thoracic spine. SOFT TISSUES: Fatty liver. [facility] CONSOLID[facility] Bebeto Ring MD - 11/30/2024 EXAMINATION: CT OF THE THORACIC SPINE WITHOUT CONTRAST 11/30/2024 4:26 pm: TECHNIQUE: CT of the thoracic spine was performed without the administration of intravenous contrast. Multiplanar reformatted images are provided for review. Automated exposure control, iterative reconstruction, and/or weight based adjustment of the mA/kV was utilized to reduce the radiation dose to as low as reasonably achievable. COMPARISON: 08/11/2024 HISTORY: ORDERING SYSTEM PROVIDED HISTORY: injury TECHNOLOGIST PROVIDED HISTORY: injury Reason for Exam: Fall FINDINGS: BONES/ALIGNMENT: There is normal alignment of the spine. Status post multilevel vertebral augmentation. No acute fracture. No osseous destructive lesion is seen. DEGENERATIVE CHANGES: No gross spinal canal stenosis or bony neural foraminal narrowing of the thoracic spine. SOFT TISSUES: Fatty liver. IMPRESSION: 1. No acute osseous abnormality. 2. Fatty liver. [facility] Radiology Study observation (narrative) [facility] CT Thoracic spine WO contras tOrdered By: Bebeto Ring on 11-30-2024 [facility] Work Phone: Cult,Urineon 11-28-2024 Cult,Urine Specimen Description .CLEAN CATCH URINE Special Requests Site: Urine Culture NO GROWTH Report Status FINAL 11/28/2024 [facility] Comment on above: Performed By: #### U #### [facility] [employer] [address] [place] [address] [employer] Supervisor: Reno Duron MD [facility] [address] [place] [address] [employer] Supervisor: Ziggy Hilario MD CNPNon 10-10-2024 CNPN [facility] CNNURSEon 10-07-2024 CNNURSE [facility] CNPNon 10-02-2024 CNPN [facility] CNOVon 09-30-2024 CNOV Normal [facility] CNPNon 09-26-2024 CNPN Normal [facility] CNPNon 09-24-2024 CNPN Normal [facility] CNPNon 09-15-2024 CNPN Normal [facility] CNPNon 09-09-2024 CNPN Normal [facility] CNPNon 09-05-2024 CNPN Normal [facility] CONSULT PROGon 09-04-2024 CONSULT PROG Normal [facility] Basic metabolic 2000 panelon 09-03-2024 Anion gap [Moles/Vol] 11 mmol/L Normal 8-15 [facility] Comment on above: Order Comment: Speci men Type: BLOOD SPECIMENOrdering Facility: [facility] Address: [address] [place] [address] Performed By: #### 2 4321-2, 2776-10, ####[facility] [id number] [address] [address] [place] Calcium [Mass/Vol] 8.8 mg/dL Normal 8.5-10.2 [facility] Comment on above: Order Comment: Speci men Type: BLOOD SPECIMENOrdering Facility: [facility] Address: [address] [place] [address] Performed By: #### 2 4321-2, 2776-10, ####[facility] [id number] [address] [address] [place] Chloride [Moles/Vol] 99 mmol/L Normal 98-107 [facility] Comment on above: Order Comment: Speci men Type: BLOOD SPECIMENOrdering Facility: [facility] Address: [address] [place] [address] Performed By: #### 2 4321-2, 2776-10, ####[facility] [id number] [address] [address] [place] CO2 [Moles/Vol] 25 mmol/L Normal 22-30 [facility] Comment on above: Order Comment: Speci men Type: BLOOD SPECIMENOrdering Facility: [facility] Address: [address] [place] [address] Performed By: #### 2 4321-2, 2776-10, ####[facility] [id number] [address] [address] [place] Creatinine [Mass/Vol] 0.82 mg/dL Normal 0.73-1.22 [facility] Comment on above: Order Comment: Theo narvaez Type: BLOOD SPECIMENOrdering Facility: [facility] Address: [address] [place] [address] Performed By: #### 2 4321-2, 2777, ####[facility]IA [id number] [place] [address] [place] Creatinine and Glomerular filtration rate.predicted panel (S/P/Bld) 104 mL/min/1.73m??? Normal >=60 [facility] Comment on above: Order Comment: Theo narvaez Type: BLOOD SPECIMENOrdering Facility: [facility] [facility] Address: [address] [place] [address] Result Comment: Marisa mated Glomerular Filtration Rate [...] actual GFR. Performed By: #### 2 4321-2, 2777, ####[facility] [id number] [place] [id number] [place] Glucose [Mass/Vol] 227 mg/dL High 74-99 [facility] Comment on above: Order Comment: Speci men Type: BLOOD SPECIMENOrdering Facility: [facility] Address: [address] [place] [address] Result Comment: The [place] [employer] (ADA) provides guidance for cutoff [...] Standards of Medical Care in Diabetes 2016, [place] [employer]. Diabetes Care. 2016.39(Suppl 1). Performed By: #### 2 4321-2, 2776-10, ####[facility]CLIA [id number] [address] [address] [place] Potassium [Moles/Vol] 4.3 mmol/L Normal 3.7-5.1 [facility] Comment on above: Order Comment: Theo narvaez Type: BLOOD SPECIMENOrdering Facility: [facility] Address: [address] [place] [address] Performed By: #### 2 432-2, 2776-10, ####[facility] LABCLIA [id number] [place] [id number] [place] Sodium [Moles/Vol] 135 mmol/L Low 136-144 [facility] Comment on above: Order Comment: Theo narvaez Type: BLOOD SPECIMENOrdering Facility: [facility] Address: [address] [place] [address] Performed By: #### 2 4321-2, 2776-10, ####[facility]CLIA [id number] [place] [id number] [place] Urea nitrogen [Mass/Vol] 9 mg/dL Normal 9-24 [facility] Comment on above: Order Comment: Theo narvaez Type: BLOOD SPECIMENOrdering Facility: [facility] Address: [address] [place] [address] Performed By: #### 2 4321-2, 2776-10, ####[facility]CLIA [id number] [address] [address] [place] CASE MANAGEMon 11-13-2024 CASE MANAGEM Normal [facility] CBC panel Auto (Bld)on 09-03 Erythrocyte distribution width (RBC) [Ratio] 13.2 % Normal 11.5-15.0 [facility] Comment on above: Order Comment: Speci men Type: BLOOD SPECIMENOrdering Facility: [facility] Address: [address] [place] [address] Performed By: #### 5 8410-2 ####[facility] [id number] [address] [place] Hematocrit (Bld) [Volume fraction] 25.9 % Low 39.0-51.0 [facility] Comment on above: Order Comment: Speci men Type: BLOOD SPECIMENOrdering Facility: [facility] Address: [address] [place] [address] Performed By: #### 5 8410-2 ####[facility] [id number] [place] [address] [place] Hemoglobin (Bld) [Mass/Vol] 8.3 g/dL Low 13.0-17.0 [facility] Comment on above: Order Comment: Speci men Type: BLOOD SPECIMENOrdering Facility: [facility] Address: [address] [place] [address] Performed By: #### 5 8410-2 ####[facility] [id number] [place] [address] [place] MCH (RBC) [Entitic mass] 29.1 pg Normal 26.0-34.0 [facility] Comment on above: Order Comment: Speci men Type: BLOOD SPECIMENOrdering Facility: [facility] Address: [address] [place] [address] Performed By: #### 5 8410-2 ####[facility] [id number] [place] [address] [place] MCHC (RBC) [Mass/Vol] 32.0 g/dL Normal 30.5-36.0 [facility] Comment on above: Order Comment: Speci men Type: BLOOD SPECIMENOrdering Facility: [facility] Address: [address] [place] [address] Performed By: #### 5 8410-2 ####[facility] [id number] [place] [address] [place] MCV (RBC) [Entitic vol] 90.9 fL Normal 80.0-100.0 [facility] Comment on above: Order Comment: Speci men Type: BLOOD SPECIMENOrdering Facility: [facility] Address: [address] [place] [address] Performed By: #### 5 8410-2 ####[facility] [id number] [place] [address] [place] Nucleated RBC (Bld) [#/Vol] 0.03 10*3/uL High <0.01 [facility] Comment on above: Order Comment: Speci men Type: BLOOD SPECIMENOrdering Facility: [facility] Address: [address] [place] [address] Performed By: #### 5 8410-2 ####[facility] [id number] [place] [address] [place] Platelet mean volume (Bld) [Entitic vol] 9.4 fL Normal 9.0-12.7 [facility] Comment on above: Order Comment: Speci men Type: BLOOD SPECIMENOrdering Facility: [facility] Address: [address] [place] [address] Performed By: #### 5 8410-2 ####[facility] [id number] [place] [address] [place] Platelets (Bld) [#/Vol] 548 10*3/uL High 150-400 [facility] Comment on above: Order Comment: Speci men Type: BLOOD SPECIMENOrdering Facility: [facility] Address: [address] [place], [place] [address] Performed By: #### 5 8410-2 ####[facility]CLIA [id number] [place] [id number] [place] RBC (Bld) [#/Vol] 2.85 10*6/uL Low 4.20-6.00 [facility] Comment on above: Order Comment: Speci men Type: BLOOD SPECIMENOrdering Facility: [facility] Address: [address] [place] [address] Performed By: #### 5 8410-2 ####[facility]CLIA [id number] [place] [address] [place] WBC (Bld) [#/Vol] 13.25 10*3/uL High 3.70-11.00 [facility] Comment on above: Order Comment: Speci men Type: BLOOD SPECIMENOrdering Facility: [facility] Address: [address] [place] [address] Performed By: #### 5 8410-2 ####[facility] [id number] [place] [address] [place] CNDSon 09-03-2024 CNDS Normal [facility] CONSULT PROGon 09-03-2024 CONSULT PROG Normal [facility] Magnesium SerPl-mCncon 09-03 Magnesium [Mass/Vol] 1.9 mg/dL Normal 1.7-2.3 [facility] Comment on above: Order Comment: Speci men Type: BLOOD SPECIMENOrdering Facility: [facility] Address: [address] [place] [address] Performed By: #### 2 4321-2, 2777-1, 65191-5 ####[facility] [id number] [place] [id number] [place] NUTRITIONon 09-03-2024 NUTRITION Normal [facility] PT EDon 09-03-2024 PT ED Normal [facility] PT ED Normal [facility] Phosphate SerPl-mCncon 09-03 Phosphate [Mass/Vol] 2.2 mg/dL Low 2.7-4.8 [facility] Comment on above: Order Comment: Speci men Type: BLOOD SPECIMENOrdering Facility: [facility] Address: [address] [place] [address] Performed By: #### 2 4321-2, 2777-1, 57795-5 ####[facility]CLIA [id number] [address] [address] [place] Basic metabolic 2000 panelon 09-02-2024 Anion gap [Moles/Vol] 13 mmol/L Normal 8-15 [facility] Comment on above: Order Comment: Speci men Type: BLOOD SPECIMENOrdering Facility: [facility] Address: [address] [place] [address] Performed By: #### 1 9123-9, 2777-1, 63329-5 ####[facility]CLIA [id number] [address] [address] [place] Calcium [Mass/Vol] 8.6 mg/dL Normal 8.5-10.2 [facility] Comment on above: Order Comment: Speci men Type: BLOOD SPECIMENOrdering Facility: [facility] Address: [address] [place], [place] [address] Performed By: #### 1 9123-9, 2777-1, 13857-3 ####[facility]CLIA [id number] [address] [address] [place] Chloride [Moles/Vol] 101 mmol/L Normal 98-107 [facility] Comment on above: Order Comment: Speci men Type: BLOOD SPECIMENOrdering Facility: [facility] Address: [address] [place], [place] [address] Performed By: #### 1 9123-9, 2777-1, 81469-4 ####[facility]CLIA [id number] [place] [address] [place] CO2 [Moles/Vol] 25 mmol/L Normal 22-30 [facility] Comment on above: Order Comment: Theo narvaez Type: BLOOD SPECIMENOrdering Facility: [facility] Address: [address] [place] [address] Performed By: #### 1 9123-9, 2777-1, 02139-4 ####[facility] [id number] [place] [address] [place] Creatinine [Mass/Vol] 0.84 mg/dL Normal 0.73-1.22 [facility] Comment on above: Order Comment: Speci men Type: BLOOD SPECIMENOrdering Facility: [facility] Address: [address] [place] [address] Performed By: #### 1 9123-9, 2777, ####[facility] [id number] [place] [address] [place] Creatinine and Glomerular filtration rate.predicted panel (S/P/Bld) 104 mL/min/1.73m??? Normal >=60 [facility] Comment on above: Order Comment: Theo narvaez Type: BLOOD SPECIMENOrdering Facility: [facility] Address: [address] [place] [address] Result Comment: Marisa mated Glomerular Filtration Rate [...] actual GFR. Performed By: #### 1 9123-9, 2777-, 01993-5 ####[facility]IA [id number] [place] [id number] [place] Glucose [Mass/Vol] 119 mg/dL High 74-99 [facility] Comment on above: Order Comment: Theo narvaez Type: BLOOD SPECIMENOrdering Facility: [facility] Address: [address] [place] [address] Result Comment: The [place] [employer] (ADA) provides guidance for cutoff [...] Standards of Medical Care in Diabetes 2016, [place] [employer]. Diabetes Care. 2016.39(Suppl 1). Performed By: #### 1 9123-9, 2777-1, 01078-9 ####[facility]CLIA [id number] [place] [address] [place] Potassium [Moles/Vol] 3.4 mmol/L Low 3.7-5.1 [facility] Comment on above: Order Comment: Theo narvaez Type: BLOOD SPECIMENOrdering Facility: [facility] Address: [address] [place] [address] Performed By: #### 1 9123-9, 2777-1, 49647-3 ####[facility]CLIA [id number] [place] [address] [place] Sodium [Moles/Vol] 139 mmol/L Normal 136-144 [facility] Comment on above: Order Comment: Theo narvaez Type: BLOOD SPECIMENOrdering Facility: [facility] Address: [address] [place] [address] Performed By: #### 1 9123-9, 2777-1, 10845-2 ####[facility]CLIA [id number] [place] [address] [place] Urea nitrogen [Mass/Vol] 13 mg/dL Normal 9-24 [facility] Comment on above: Order Comment: Speci men Type: BLOOD SPECIMENOrdering Facility: [facility] Address: [address] [place] [address] Performed By: #### 1 9123-9, 2777-1, 04790-9 ####[facility]CLIA [id number] [place] [address] [place] CBC panel Auto (Bld)on 09-02 Erythrocyte distribution width (RBC) [Ratio] 13.0 % Normal 11.5-15.0 [facility] Comment on above: Order Comment: Speci men Type: BLOOD SPECIMENOrdering Facility: [facility] Address: [address] [place] [address] Performed By: #### 5 8410-2 ####[facility]CLIA [id number] [address] [place] Hematocrit (Bld) [Volume fraction] 25.0 % Low 39.0-51.0 [facility] Comment on above: Order Comment: Speci men Type: BLOOD SPECIMENOrdering Facility: [facility] Address: [address] [place] [address] Performed By: #### 5 8410-2 ####[facility]CLIA [id number] [place] [address] [place] Hemoglobin (Bld) [Mass/Vol] 8.0 g/dL Low 13.0-17.0 [facility] Comment on above: Order Comment: Speci men Type: BLOOD SPECIMENOrdering Facility: [facility] Address: [address] [place] [address] Performed By: #### 5 8410-2 ####[facility]CLIA [id number] [place] [address] [place] MCH (RBC) [Entitic mass] 28.9 pg Normal 26.0-34.0 [facility] Comment on above: Order Comment: Speci men Type: BLOOD SPECIMENOrdering Facility: [facility] Address: [address] [place] [address] Performed By: #### 5 8410-2 ####[facility] [id number] [place] [address] [place] MCHC (RBC) [Mass/Vol] 32.0 g/dL Normal 30.5-36.0 [facility] Comment on above: Order Comment: Speci men Type: BLOOD SPECIMENOrdering Facility: [facility] Address: [address] [place] [address] Performed By: #### 5 8410-2 ####[facility] [id number] [place] [address] [place] MCV (RBC) [Entitic vol] 90.3 fL Normal 80.0-100.0 [facility] Comment on above: Order Comment: Speci men Type: BLOOD SPECIMENOrdering Facility: [facility] Address: [address] [place] [address] Performed By: #### 5 8410-2 ####[facility] [id number] [place] [address] [place] Nucleated RBC (Bld) [#/Vol] 0.04 10*3/uL High <0.01 [facility] Comment on above: Order Comment: Speci men Type: BLOOD SPECIMENOrdering Facility: [facility] Address: [address] [place] [address] Performed By: #### 5 8410-2 ####[facility] [id number] [place] [address] [place] Platelet mean volume (Bld) [Entitic vol] 9.3 fL Normal 9.0-12.7 [facility] Comment on above: Order Comment: Speci men Type: BLOOD SPECIMENOrdering Facility: [facility] Address: [address] [place] [address] Performed By: #### 5 8410-2 ####[facility] [id number] [address] [address] [place] Platelets (Bld) [#/Vol] 435 10*3/uL High 150-400 [facility] Comment on above: Order Comment: Speci men Type: BLOOD SPECIMENOrdering Facility: [facility] Address: [address] [place] [address] Performed By: #### 5 8410-2 ####[facility] [id number] [place] [address] [place] RBC (Bld) [#/Vol] 2.77 10*6/uL Low 4.20-6.00 [facility] Comment on above: Order Comment: Speci men Type: BLOOD SPECIMENOrdering Facility: [facility] Address: [address] [place] [address] Performed By: #### 5 8410-2 ####[facility] [id number] [place] [address] [place] WBC (Bld) [#/Vol] 10.80 10*3/uL Normal 3.70-11.00 [facility] Comment on above: Order Comment: Speci men Type: BLOOD SPECIMENOrdering Facility: [facility] Address: [address] [place] [address] Performed By: #### 5 8410-2 ####[facility] [id number] [place] [address] [place] CONSULT PROGon 09-02-2024 CONSULT PROG Normal [facility] Magnesium SerPl-mCncon 09-02 Magnesium [Mass/Vol] 1.9 mg/dL Normal 1.7-2.3 [facility] Comment on above: Order Comment: Speci men Type: BLOOD SPECIMENOrdering Facility: [facility] Address: [address] [place] [address] Performed By: #### 1 9123-9, 2776-, 40050-5 ####[facility]CLIA [id number] [address] [address] [place] Phosphate SerPl-mCncon 09-02 Phosphate [Mass/Vol] 2.5 mg/dL Low 2.7-4.8 [facility] Comment on above: Order Comment: Speci men Type: BLOOD SPECIMENOrdering Facility: [facility] Address: [address] [place] [address] Performed By: #### 1 9123-9, 2776-, 51812-7 ####[facility]CLIA [id number] [place] [address] [place] Basic metabolic 2000 panelon 09-01-2024 Anion gap [Moles/Vol] 14 mmol/L Normal 8-15 [facility] Comment on above: Order Comment: Speci men Type: BLOOD SPECIMENOrdering Facility: [facility] Address: [address] [place] [address] Performed By: #### 2 4321-2, , 2776-10 ####[facility] [id number] [place] [address] [place] Calcium [Mass/Vol] 8.4 mg/dL Low 8.5-10.2 [facility] Comment on above: Order Comment: Speci men Type: BLOOD SPECIMENOrdering Facility: [facility] Address: [address] [place] [address] Performed By: #### 2 4321-2, 83774-7, 2776-10 ####[facility] [id number] [place] [id number] [place] Chloride [Moles/Vol] 102 mmol/L Normal 98-107 [facility] Comment on above: Order Comment: Speci men Type: BLOOD SPECIMENOrdering Facility: [facility] Address: [address] [place] [address] Performed By: #### 2 4321-2, , 2776-10 ####[facility] [id number] [place] [address] [place] CO2 [Moles/Vol] 24 mmol/L Normal 22-30 [facility] Comment on above: Order Comment: Speci men Type: BLOOD SPECIMENOrdering Facility: [facility] Address: [address] [place] [address] Performed By: #### 2 4321-2, , 2776-10 ####[facility] [id number] [place] [address] [place] Creatinine [Mass/Vol] 0.73 mg/dL Normal 0.73-1.22 [facility] Comment on above: Order Comment: Speci men Type: BLOOD SPECIMENOrdering Facility: [facility] Address: [address] [place] [address] Performed By: #### 2 432-2, , 2776-10 ####[facility] [id number] [place] [address] [place] Creatinine and Glomerular filtration rate.predicted panel (S/P/Bld) 108 mL/min/1.73m??? Normal >=60 [facility] Comment on above: Order Comment: Speci men Type: BLOOD SPECIMENOrdering Facility: [facility] Address: [address] [place] [address] Result Comment: Marisa mated Glomerular Filtration Rate [...] actual GFR. Performed By: #### 2 4321-2, , 2776-10 ####[facility] [id number] [place] [address] [place] Glucose [Mass/Vol] 158 mg/dL High 74-99 [facility] Comment on above: Order Comment: Speci men Type: BLOOD SPECIMENOrdering Facility: [facility] Address: [address] [place] [address] Result Comment: The [place] [employer] (ADA) provides guidance for cutoff [...] Standards of Medical Care in Diabetes 2016, [place] [employer]. Diabetes Care. 2016.39(Suppl 1). Performed By: #### 2 4321-2, , 2776-10 ####[facility] [id number] [place] [address] [place] Potassium [Moles/Vol] 4.0 mmol/L Normal 3.7-5.1 [facility] Comment on above: Order Comment: Yasmini brice Type: BLOOD SPECIMENOrdering Facility: [facility] Address: [address] [place] [address] Performed By: #### 2 4321-2, , 2776-10 ####[facility] [id number] [place] [address] [place] Sodium [Moles/Vol] 140 mmol/L Normal 136-144 [facility] Comment on above: Order Comment: Speci men Type: BLOOD SPECIMENOrdering Facility: [facility] Address: [address] [place] [address] Performed By: #### 2 4321-2, , 2776-10 ####[facility] [id number] [place] [address] [place] Urea nitrogen [Mass/Vol] 14 mg/dL Normal 9-24 [facility] Comment on above: Order Comment: Speci men Type: BLOOD SPECIMENOrdering Facility: [facility] Address: [address] [place] [address] Performed By: #### 2 4321-2, 38321-5, 2777-1 ####[facility] [id number] [place] [address] [place] CASE MANAGEMon 09-01-2024 CASE MANAGEM Normal [facility] CBC panel Auto (Bld)on 09-01 Erythrocyte distribution width (RBC) [Ratio] 13.1 % Normal 11.5-15.0 [facility] Comment on above: Order Comment: Speci men Type: BLOOD SPECIMENOrdering Facility: [facility] Address: [address] [place] [address] Performed By: #### 5 8410-2 ####[facility] [id number] [place] [address] [place] Hematocrit (Bld) [Volume fraction] 24.5 % Low 39.0-51.0 [facility] Comment on above: Order Comment: Speci men Type: BLOOD SPECIMENOrdering Facility: [facility] Address: [address] [place] [address] Performed By: #### 5 8410-2 ####[facility] [id number] [place] [address] [place] Hemoglobin (Bld) [Mass/Vol] 7.8 g/dL Low 13.0-17.0 [facility] Comment on above: Order Comment: Speci men Type: BLOOD SPECIMENOrdering Facility: [facility] Address: [address] [place] [address] Performed By: #### 5 8410-2 ####[facility] [id number] [place] [address] [place] MCH (RBC) [Entitic mass] 29.2 pg Normal 26.0-34.0 [facility] Comment on above: Order Comment: Speci men Type: BLOOD SPECIMENOrdering Facility: [facility] Address: [address] [place] [address] Performed By: #### 5 8410-2 ####[facility] LABIA [id number] [place] [address] [place] MCHC (RBC) [Mass/Vol] 31.8 g/dL Normal 30.5-36.0 [facility] Comment on above: Order Comment: Speci men Type: BLOOD SPECIMENOrdering Facility: [facility] Address: [address] [place] [address] Performed By: #### 5 8410-2 ####[facility] LABCLIA [id number] [place] [address] [place] MCV (RBC) [Entitic vol] 91.8 fL Normal 80.0-100.0 [facility] Comment on above: Order Comment: Speci men Type: BLOOD SPECIMENOrdering Facility: [facility] Address: [address] [place] [address] Performed By: #### 5 8410-2 ####[facility] LABIA [id number] [place] [address] [place] Nucleated RBC (Bld) [#/Vol] 10*3/uL Normal <0.01 [facility] Comment on above: Order Comment: Speci men Type: BLOOD SPECIMENOrdering Facility: [facility] Address: [address] [place] [address] Performed By: #### 5 8410-2 ####[facility] LABCLIA [id number] [place] [address] [place] Platelet mean volume (Bld) [Entitic vol] 9.6 fL Normal 9.0-12.7 [facility] Comment on above: Order Comment: Speci men Type: BLOOD SPECIMENOrdering Facility: [facility] Address: [address] [place] [address] Performed By: #### 5 8410-2 ####[facility] LABCLIA [id number] [place] [address] [place] Platelets (Bld) [#/Vol] 349 10*3/uL Normal 150-400 [facility] Comment on above: Order Comment: Speci men Type: BLOOD SPECIMENOrdering Facility: [facility] Address: [address] [place] [address] Performed By: #### 5 8410-2 ####[facility] LABCLIA [id number] [place] [address] [place] RBC (Bld) [#/Vol] 2.67 10*6/uL Low 4.20-6.00 [facility] Comment on above: Order Comment: Speci men Type: BLOOD SPECIMENOrdering Facility: [facility] Address: [address] [place] [address] Performed By: #### 5 8410-2 ####[facility] LABCLIA [id number] [place] [address] [place] WBC (Bld) [#/Vol] 9.51 10*3/uL Normal 3.70-11.00 [facility] Comment on above: Order Comment: Speci men Type: BLOOD SPECIMENOrdering Facility: [facility] Address: [address] [place] [address] Performed By: #### 5 8410-2 ####[facility] LABCLIA [id number] [place] [address] [place] CONSULT PROGon 09-01-2024 CONSULT PROG Normal [facility] Magnesium SerPl-mCncon 09-01 Magnesium [Mass/Vol] 1.9 mg/dL Normal 1.7-2.3 [facility] Comment on above: Order Comment: Speci men Type: BLOOD SPECIMENOrdering Facility: [facility] Address: [address] [place] [address] Performed By: #### 2 4321-2, , 2776-10 ####[facility] LABCLIA [id number] [facility] [address] [address] [place] Phosphate SerPl-mCncon 09-01 Phosphate [Mass/Vol] 2.6 mg/dL Low 2.7-4.8 [facility] Comment on above: Order Comment: Speci men Type: BLOOD SPECIMENOrdering Facility: [facility] Address: [address] [place] [address] Performed By: #### 2 4321-2, , 2776-10 ####[facility] LABCLIA [id number] [place] [address] [place] THERAPY NTon 09-01-2024 THERAPY NT Normal [facility] Basic metabolic 2000 panelon 08-31-2024 Anion gap [Moles/Vol] 12 mmol/L Normal 8-15 [facility] Comment on above: Order Comment: Speci men Type: BLOOD SPECIMENOrdering Facility: [facility] Address: [address] [place] [address] Performed By: #### 2 777-1, , ####[facility] LABCLIA [id number] [place] [id number] [place] Calcium [Mass/Vol] 8.8 mg/dL Normal 8.5-10.2 [facility] Comment on above: Order Comment: Speci men Type: BLOOD SPECIMENOrdering Facility: [facility] Address: [address] [place] [address] Performed By: #### 2 777-1, 65991-2, ####[facility] LABCLIA [id number] [place] [address] [place] Chloride [Moles/Vol] 100 mmol/L Normal 98-107 [facility] Comment on above: Order Comment: Speci men Type: BLOOD SPECIMENOrdering Facility: [facility] Address: [address] [place] [address] Performed By: #### 2 777-1, 19490-9, ####[facility] LABCLIA [id number] [place] [address] [place] CO2 [Moles/Vol] 29 mmol/L Normal 22-30 [facility] Comment on above: Order Comment: Speci men Type: BLOOD SPECIMENOrdering Facility: [facility] Address: [address] [place] [address] Performed By: #### 2 777-1, 05824-2, ####[facility] LABCLIA [id number] [place] [address] [place] Creatinine [Mass/Vol] 0.80 mg/dL Normal 0.73-1.22 [facility] Comment on above: Order Comment: Speci men Type: BLOOD SPECIMENOrdering Facility: [facility] Address: [address] [place] [address] Performed By: #### 2 777-1, 24608-6, ####[facility] LABCLIA [id number] [place] [address] [place] Creatinine and Glomerular filtration rate.predicted panel (S/P/Bld) 105 mL/min/1.73m??? Normal >=60 [facility] Comment on above: Order Comment: Speci men Type: BLOOD SPECIMENOrdering Facility: [facility] Address: [address] [place] [address] Result Comment: Marisa mated Glomerular Filtration Rate [...] actual GFR. Performed By: #### 2 777-1, 05758-4, ####[facility] LABCLIA [id number] [place] [id number] [place] Glucose [Mass/Vol] 190 mg/dL High 74-99 [facility] Comment on above: Order Comment: Speci men Type: BLOOD SPECIMENOrdering Facility: [facility] Address: [address] [place] [address] Result Comment: The [place] [employer] (ADA) provides guidance for cutoff [...] Standards of Medical Care in Diabetes 2016, [place] [employer]. Diabetes Care. 2016.39(Suppl 1). Performed By: #### 2 777-1, , ####[facility] LABCLIA [id number] [place] [address] [place] Potassium [Moles/Vol] 4.0 mmol/L Normal 3.7-5.1 [facility] Comment on above: Order Comment: Speci men Type: BLOOD SPECIMENOrdering Facility: [facility] Address: [address] [place] [address] Performed By: #### 2 777-1, , ####[facility] LABCLIA [id number] [place] [address] [place] Sodium [Moles/Vol] 141 mmol/L Normal 136-144 [facility] Comment on above: Order Comment: Speci men Type: BLOOD SPECIMENOrdering Facility: [facility] Address: [address] [place] [address] Performed By: #### 2 777-1, 61647-4, ####[facility] LABCLIA [id number] [place] [address] [place] Urea nitrogen [Mass/Vol] 12 mg/dL Normal 9-24 [facility] Comment on above: Order Comment: Speci men Type: BLOOD SPECIMENOrdering Facility: [facility] Address: [address] [place] [address] Performed By: #### 2 777-1, 93010-7, ####[facility] LABCLIA [id number] [place] [address] [place] CBC panel Auto (Bld)on 08-31 Erythrocyte distribution width (RBC) [Ratio] 13.1 % Normal 11.5-15.0 [facility] Comment on above: Order Comment: Speci men Type: BLOOD SPECIMENOrdering Facility: [facility] Address: [address] [place] [address] Performed By: #### 5 8410-2 ####[facility] LABIA [id number] [place] [address] [place] Hematocrit (Bld) [Volume fraction] 25.9 % Low 39.0-51.0 [facility] Comment on above: Order Comment: Speci men Type: BLOOD SPECIMENOrdering Facility: [facility] Address: [address] [place] [address] Performed By: #### 5 8410-2 ####[facility] LABIA [id number] [place] [address] [place] Hemoglobin (Bld) [Mass/Vol] 8.3 g/dL Low 13.0-17.0 [facility] Comment on above: Order Comment: Speci men Type: BLOOD SPECIMENOrdering Facility: [facility] Address: [address] [place] [address] Performed By: #### 5 8410-2 ####[facility] LABIA [id number] [place] [address] [place] MCH (RBC) [Entitic mass] 29.4 pg Normal 26.0-34.0 [facility] Comment on above: Order Comment: Speci men Type: BLOOD SPECIMENOrdering Facility: [facility] Address: [address] [place] [address] Performed By: #### 5 8410-2 ####[facility] LABIA [id number] [place] [address] [place] MCHC (RBC) [Mass/Vol] 32.0 g/dL Normal 30.5-36.0 [facility] Comment on above: Order Comment: Speci men Type: BLOOD SPECIMENOrdering Facility: [facility] Address: [address] [place] [address] Performed By: #### 5 8410-2 ####[facility] LABIA [id number] [place] [address] [place] MCV (RBC) [Entitic vol] 91.8 fL Normal 80.0-100.0 [facility] Comment on above: Order Comment: Speci men Type: BLOOD SPECIMENOrdering Facility: [facility] Address: [address] [place] [address] Performed By: #### 5 8410-2 ####[facility] LABIA [id number] [place] [address] [place] Nucleated RBC (Bld) [#/Vol] 10*3/uL Normal <0.01 [facility] Comment on above: Order Comment: Speci men Type: BLOOD SPECIMENOrdering Facility: [facility] Address: [address] [place] [address] Performed By: #### 5 8410-2 ####[facility] LABIA [id number] [place] [address] [place] Platelet mean volume (Bld) [Entitic vol] 9.6 fL Normal 9.0-12.7 [facility] Comment on above: Order Comment: Speci men Type: BLOOD SPECIMENOrdering Facility: [facility] Address: [address] [place] [address] Performed By: #### 5 8410-2 ####[facility] LABIA [id number] [place] [address] [place] Platelets (Bld) [#/Vol] 277 10*3/uL Normal 150-400 [facility] Comment on above: Order Comment: Speci men Type: BLOOD SPECIMENOrdering Facility: [facility] Address: [address] [place] [address] Performed By: #### 5 8410-2 ####[facility] [id number] [place] [address] [place] RBC (Bld) [#/Vol] 2.82 10*6/uL Low 4.20-6.00 [facility] Comment on above: Order Comment: Speci men Type: BLOOD SPECIMENOrdering Facility: [facility] Address: [address] [place] [address] Performed By: #### 5 8410-2 ####[facility] [id number] [place] [address] [place] WBC (Bld) [#/Vol] 14.25 10*3/uL High 3.70-11.00 [facility] Comment on above: Order Comment: Speci men Type: BLOOD SPECIMENOrdering Facility: [facility] Address: [address] [place] [address] Performed By: #### 5 8410-2 ####[facility] LABIA [id number] [place] [address] [place] CONSULT PROGon 08-31-2024 CONSULT PROG Normal [facility] Magnesium SerPl-mCncon 08-31 Magnesium [Mass/Vol] 2.0 mg/dL Normal 1.7-2.3 [facility] Comment on above: Order Comment: Speci men Type: BLOOD SPECIMENOrdering Facility: [facility] Address: [address] [place] [address] Performed By: #### 2 777-1, 79689-5, ####[facility] [id number] [place] [address] [place] Phosphate SerPl-mCncon 08-31 Phosphate [Mass/Vol] 2.8 mg/dL Normal 2.7-4.8 [facility] Comment on above: Order Comment: Speci men Type: BLOOD SPECIMENOrdering Facility: [facility] Address: [address] [place] [address] Performed By: #### 2 777-1, 52772-9, ####[facility] [id number] [place] [address] [place] C peptide SerPl-mCncon 08-30 C peptide [Mass/Vol] 0.2 ng/mL Low 1.1-4.4 [facility] Comment on above: Order Comment: Speci men Type: BLOOD SPECIMENOrdering Facility: [facility] Address: [address] [place] [address] Performed By: #### 1 986-9 ####[facility] [id number] [place] [id number] [place] CBC W Auto Differential pane l (Bld)on 08-30-2024 Basophils (Bld) [#/Vol] 0.05 10*3/uL Normal <0.11 [facility] Comment on above: Order Comment: Speci men Type: BLOOD SPECIMENOrdering Facility: [facility] Address: [address] [place] [address] Performed By: #### 5 7021-8 ####[facility] LABCLIA [id number] [place] [address] [place] Basophils/100 WBC (Bld) 0.3 % Normal [facility] Comment on above: Order Comment: Speci men Type: BLOOD SPECIMENOrdering Facility: [facility] Address: [address] [place] [address] Performed By: #### 5 7021-8 ####[facility] LABCLIA [id number] [place] [address] [place] Differential cell count method Nom (Bld) Auto Normal [facility] Comment on above: Order Comment: Speci men Type: BLOOD SPECIMENOrdering Facility: [facility] Address: [address] [place] [address] Performed By: #### 5 7021-8 ####[facility] LABCLIA [id number] [place] [address] [place] Eosinophils (Bld) [#/Vol] 0.05 10*3/uL Normal <0.46 [facility] Comment on above: Order Comment: Speci men Type: BLOOD SPECIMENOrdering Facility: [facility] Address: [address] [place] [address] Performed By: #### 5 7021-8 ####[facility] LABCLIA [id number] [place] [address] [place] Eosinophils/100 WBC (Bld) 0.3 % Normal [facility] Comment on above: Order Comment: Speci men Type: BLOOD SPECIMENOrdering Facility: [facility] Address: [address] [place] [address] Performed By: #### 5 7021-8 ####[facility] LABCLIA [id number] [place] [address] [place] Erythrocyte distribution width (RBC) [Ratio] 13.1 % Normal 11.5-15.0 [facility] Comment on above: Order Comment: Speci men Type: BLOOD SPECIMENOrdering Facility: [facility] Address: [address] [place] [address] Performed By: #### 5 7021-8 ####[facility] LABCLIA [id number] [place] [address] [place] Hematocrit (Bld) [Volume fraction] 21.9 % Low 39.0-51.0 [facility] Comment on above: Order Comment: Speci men Type: BLOOD SPECIMENOrdering Facility: [facility] Address: [address] [place] [address] Performed By: #### 5 7021-8 ####[facility] LABCLIA [id number] [place] [address] [place] Hemoglobin (Bld) [Mass/Vol] 7.2 g/dL Low 13.0-17.0 [facility] Comment on above: Order Comment: Speci men Type: BLOOD SPECIMENOrdering Facility: [facility] Address: [address] [place] [address] Performed By: #### 5 7021-8 ####[facility] LABCLIA [id number] [place] [address] [place] Immature granulocytes (Bld) [#/Vol] 0.06 10*3/uL Normal <0.10 [facility] Comment on above: Order Comment: Speci men Type: BLOOD SPECIMENOrdering Facility: [facility] Address: [address] [place] [address] Performed By: #### 5 7021-8 ####[facility] LABCLIA [id number] [place] [address] [place] Immature granulocytes/100 WBC (Bld) 0.4 % Normal [facility] Comment on above: Order Comment: Speci men Type: BLOOD SPECIMENOrdering Facility: [facility] Address: [address] [place] [address] Performed By: #### 5 7021-8 ####[facility] LABCLIA [id number] [place] [address] [place] Lymphocytes (Bld) [#/Vol] 1.59 10*3/uL Normal 1.00-4.00 [facility] Comment on above: Order Comment: Speci men Type: BLOOD SPECIMENOrdering Facility: [facility] Address: [address] [place] [address] Performed By: #### 5 7021-8 ####[facility] LABCLIA [id number] [place] [address] [place] Lymphocytes/100 WBC (Bld) 9.8 % Normal [facility] Comment on above: Order Comment: Speci men Type: BLOOD SPECIMENOrdering Facility: [facility] Address: [address] [place] [address] Performed By: #### 5 7021-8 ####[facility] LABIA [id number] [place] [address] [place] MCH (RBC) [Entitic mass] 29.0 pg Normal 26.0-34.0 [facility] Comment on above: Order Comment: Speci men Type: BLOOD SPECIMENOrdering Facility: [facility] Address: [address] [place] [address] Performed By: #### 5 7021-8 ####[facility] LABIA [id number] [place] [address] [place] MCHC (RBC) [Mass/Vol] 32.9 g/dL Normal 30.5-36.0 [facility] Comment on above: Order Comment: Speci men Type: BLOOD SPECIMENOrdering Facility: [facility] Address: [address] [place] [address] Performed By: #### 5 7021-8 ####[facility] LABIA [id number] [place] [address] [place] MCV (RBC) [Entitic vol] 88.3 fL Normal 80.0-100.0 [facility] Comment on above: Order Comment: Speci men Type: BLOOD SPECIMENOrdering Facility: [facility] Address: [address] [place] [address] Performed By: #### 5 7021-8 ####[facility] LABCLIA [id number] [address] [address] [place] Monocytes (Bld) [#/Vol] 1.67 10*3/uL High <0.87 [facility] Comment on above: Order Comment: Speci men Type: BLOOD SPECIMENOrdering Facility: [facility] Address: [address] [place] [address] Performed By: #### 5 7021-8 ####[facility] LABCLIA [id number] [place] [address] [place] Monocytes/100 WBC (Bld) 10.3 % Normal [facility] Comment on above: Order Comment: Speci men Type: BLOOD SPECIMENOrdering Facility: [facility] Address: [address] [place] [address] Performed By: #### 5 7021-8 ####[facility] LABCLIA [id number] [place] [address] [place] Neutrophils (Bld) [#/Vol] 12.86 10*3/uL High 1.45-7.50 [facility] Comment on above: Order Comment: Speci men Type: BLOOD SPECIMENOrdering Facility: [facility] Address: [address] [place] [address] Performed By: #### 5 7021-8 ####[facility] LABCLIA [id number] [place] [address] [place] Neutrophils/100 WBC (Bld) 78.9 % Normal [facility] Comment on above: Order Comment: Speci men Type: BLOOD SPECIMENOrdering Facility: [facility] Address: [address] [place] [address] Performed By: #### 5 7021-8 ####[facility] LABCLIA [id number] [place] [id number] [place] Nucleated RBC (Bld) [#/Vol] 10*3/uL Normal <0.01 [facility] Comment on above: Order Comment: Speci men Type: BLOOD SPECIMENOrdering Facility: [facility] Address: [address] [place] [address] Performed By: #### 5 7021-8 ####[facility]IA [id number] [place] [address] [place] Nucleated RBC/100 WBC (Bld) [Ratio] 0.0 /100 WBC Normal [facility] Comment on above: Order Comment: Speci men Type: BLOOD SPECIMENOrdering Facility: [facility] Address: [address] [place] [address] Performed By: #### 5 7021-8 ####[facility]IA [id number] [place] [address] [place] Platelet mean volume (Bld) [Entitic vol] 9.7 fL Normal 9.0-12.7 [facility] Comment on above: Order Comment: Speci men Type: BLOOD SPECIMENOrdering Facility: [facility] Address: [address] [place] [address] Performed By: #### 5 7021-8 ####[facility]IA [id number] [place] [address] [place] Platelets (Bld) [#/Vol] 207 10*3/uL Normal 150-400 [facility] Comment on above: Order Comment: Speci men Type: BLOOD SPECIMENOrdering Facility: [facility] Address: [address] [place] [address] Performed By: #### 5 7021-8 ####[facility] [id number] [place] [address] [place] RBC (Bld) [#/Vol] 2.48 10*6/uL Low 4.20-6.00 [facility] Comment on above: Order Comment: Speci men Type: BLOOD SPECIMENOrdering Facility: [facility] Address: [address] [place] [address] Performed By: #### 5 7021-8 ####[facility]CLIA [id number] [place] [address] [place] WBC (Bld) [#/Vol] 16.28 10*3/uL High 3.70-11.00 [facility] Comment on above: Order Comment: Speci men Type: BLOOD SPECIMENOrdering Facility: [facility] Address: [address] [place] [address] Performed By: #### 5 7021-8 ####[facility]CLIA [id number] [place] [address] [place] CBC panel Auto (Bld)on 08-30 Erythrocyte distribution width (RBC) [Ratio] 13.1 % Normal 11.5-15.0 [facility] Comment on above: Order Comment: Speci men Type: BLOOD SPECIMENOrdering Facility: [facility] Address: [address] [place] [address] Performed By: #### 5 8410-2 ####[facility]CLIA [id number] [place] [address] [place] Hematocrit (Bld) [Volume fraction] 26.8 % Low 39.0-51.0 [facility] Comment on above: Order Comment: Speci men Type: BLOOD SPECIMENOrdering Facility: [facility] Address: [address] [place] [address] Performed By: #### 5 8410-2 ####[facility] LABCLIA [id number] [place] [address] [place] Hemoglobin (Bld) [Mass/Vol] 8.9 g/dL Low 13.0-17.0 [facility] Comment on above: Order Comment: Speci men Type: BLOOD SPECIMENOrdering Facility: [facility] Address: [address] [place] [address] Performed By: #### 5 8410-2 ####[facility] [id number] [place] [address] [place] MCH (RBC) [Entitic mass] 29.6 pg Normal 26.0-34.0 [facility] Comment on above: Order Comment: Speci men Type: BLOOD SPECIMENOrdering Facility: [facility] Address: [address] [place] [address] Performed By: #### 5 8410-2 ####[facility] [id number] [place] [address] [place] MCHC (RBC) [Mass/Vol] 33.2 g/dL Normal 30.5-36.0 [facility] Comment on above: Order Comment: Speci men Type: BLOOD SPECIMENOrdering Facility: [facility] Address: [address] [place] [address] Performed By: #### 5 8410-2 ####[facility] [id number] [place] [address] [place] MCV (RBC) [Entitic vol] 89.0 fL Normal 80.0-100.0 [facility] Comment on above: Order Comment: Speci men Type: BLOOD SPECIMENOrdering Facility: [facility] Address: [address] [place] [address] Performed By: #### 5 8410-2 ####[facility] LABIA [id number] [place] [address] [place] Nucleated RBC (Bld) [#/Vol] 10*3/uL Normal <0.01 [facility] Comment on above: Order Comment: Speci men Type: BLOOD SPECIMENOrdering Facility: [facility] Address: [address] [place] [address] Performed By: #### 5 8410-2 ####[facility]CLIA [id number] [address] [address] [place] Platelet mean volume (Bld) [Entitic vol] 10.6 fL Normal 9.0-12.7 [facility] Comment on above: Order Comment: Speci men Type: BLOOD SPECIMENOrdering Facility: [facility] Address: [address] [place] [address] Performed By: #### 5 8410-2 ####[facility] [id number] [place] [address] [place] Platelets (Bld) [#/Vol] 223 10*3/uL Normal 150-400 [facility] Comment on above: Order Comment: Speci men Type: BLOOD SPECIMENOrdering Facility: [facility] Address: [address] [place] [address] Performed By: #### 5 8410-2 ####[facility] LABIA [id number] [place] [address] [place] RBC (Bld) [#/Vol] 3.01 10*6/uL Low 4.20-6.00 [facility] Comment on above: Order Comment: Speci men Type: BLOOD SPECIMENOrdering Facility: [facility] Address: [address] [place] [address] Performed By: #### 5 8410-2 ####[facility] LABIA [id number] [place] [address] [place] WBC (Bld) [#/Vol] 17.79 10*3/uL High 3.70-11.00 [facility] Comment on above: Order Comment: Speci men Type: BLOOD SPECIMENOrdering Facility: [facility] Address: [address] [place] [address] Performed By: #### 5 8410-2 ####[facility] LABIA [id number] [place] [address] [place] Erythrocyte distribution width (RBC) [Ratio] 12.9 % Normal 11.5-15.0 [facility] Comment on above: Order Comment: Speci men Type: BLOOD SPECIMENOrdering Facility: [facility] Address: [address] [place] [address] Performed By: #### 5 8410-2 ####[facility]CL[facility] [id number] [place] [address] [place] Hematocrit (Bld) [Volume fraction] 26.1 % Low 39.0-51.0 [facility] Comment on above: Order Comment: Speci men Type: BLOOD SPECIMENOrdering Facility: [facility] Address: [address] [place] [address] Performed By: #### 5 8410-2 ####[facility]IA [id number] [place] [address] [place] Hemoglobin (Bld) [Mass/Vol] 8.8 g/dL Low 13.0-17.0 [facility] Comment on above: Order Comment: Speci men Type: BLOOD SPECIMENOrdering Facility: [facility] Address: [address] [place] [address] Performed By: #### 5 8410-2 ####[facility] LABIA [id number] [place] [address] [place] MCH (RBC) [Entitic mass] 29.7 pg Normal 26.0-34.0 [facility] Comment on above: Order Comment: Speci men Type: BLOOD SPECIMENOrdering Facility: [facility] Address: [address] [place] [address] Performed By: #### 5 8410-2 ####[facility]CL[facility] [id number] [place] [address] [place] MCHC (RBC) [Mass/Vol] 33.7 g/dL Normal 30.5-36.0 [facility] Comment on above: Order Comment: Speci men Type: BLOOD SPECIMENOrdering Facility: [facility] Address: [address] [place] [address] Performed By: #### 5 8410-2 ####[facility]CL[facility] [id number] [place] [address] [place] MCV (RBC) [Entitic vol] 88.2 fL Normal 80.0-100.0 [facility] Comment on above: Order Comment: Speci men Type: BLOOD SPECIMENOrdering Facility: [facility] Address: [address] [place] [address] Performed By: #### 5 8410-2 ####[facility] LABIA [id number] [place] [address] [place] Nucleated RBC (Bld) [#/Vol] 10*3/uL Normal <0.01 [facility] Comment on above: Order Comment: Speci men Type: BLOOD SPECIMENOrdering Facility: [facility] Address: [address] [place] [address] Performed By: #### 5 8410-2 ####[facility] LABIA [id number] [place] [address] [place] Platelet mean volume (Bld) [Entitic vol] 9.2 fL Normal 9.0-12.7 [facility] Comment on above: Order Comment: Speci men Type: BLOOD SPECIMENOrdering Facility: [facility] Address: [address] [place] [address] Performed By: #### 5 8410-2 ####[facility]CL[facility] [id number] [place] [address] [place] Platelets (Bld) [#/Vol] 194 10*3/uL Normal 150-400 [facility] Comment on above: Order Comment: Speci men Type: BLOOD SPECIMENOrdering Facility: [facility] Address: [address] [place] [address] Performed By: #### 5 8410-2 ####[facility]CLIA [id number] [place] [address] [place] RBC (Bld) [#/Vol] 2.96 10*6/uL Low 4.20-6.00 [facility] Comment on above: Order Comment: Speci men Type: BLOOD SPECIMENOrdering Facility: [facility] Address: [address] [place] [address] Performed By: #### 5 8410-2 ####[facility]IA [id number] [place] [address] [place] WBC (Bld) [#/Vol] 17.35 10*3/uL High 3.70-11.00 [facility] Comment on above: Order Comment: Speci men Type: BLOOD SPECIMENOrdering Facility: [facility] Address: [address] [place] [address] Performed By: #### 5 8410-2 ####[facility] [id number] [place] [address] [place] Erythrocyte distribution width (RBC) [Ratio] 12.9 % Normal 11.5-15.0 [facility] Comment on above: Order Comment: Speci men Type: BLOOD SPECIMENOrdering Facility: [facility] Address: [address] [place] [address] Performed By: #### 5 8410-2 ####[facility] LABIA [id number] [place] [address] [place] Hematocrit (Bld) [Volume fraction] 22.0 % Low 39.0-51.0 [facility] Comment on above: Order Comment: Speci men Type: BLOOD SPECIMENOrdering Facility: [facility] Address: [address] [place] [address] Performed By: #### 5 8410-2 ####[facility]IA [id number] [place] [address] [place] Hemoglobin (Bld) [Mass/Vol] 7.1 g/dL Low 13.0-17.0 [facility] Comment on above: Order Comment: Speci men Type: BLOOD SPECIMENOrdering Facility: [facility] Address: [address] [place] [address] Performed By: #### 5 8410-2 ####[facility]IA [id number] [place] [address] [place] MCH (RBC) [Entitic mass] 29.0 pg Normal 26.0-34.0 [facility] Comment on above: Order Comment: Speci men Type: BLOOD SPECIMENOrdering Facility: [facility] Address: [address] [place] [address] Performed By: #### 5 8410-2 ####[facility]IA [id number] [place] [address] [place] MCHC (RBC) [Mass/Vol] 32.3 g/dL Normal 30.5-36.0 [facility] Comment on above: Order Comment: Speci men Type: BLOOD SPECIMENOrdering Facility: [facility] Address: [address] [place] [address] Performed By: #### 5 8410-2 ####[facility]IA [id number] [place] [address] [place] MCV (RBC) [Entitic vol] 89.8 fL Normal 80.0-100.0 [facility] Comment on above: Order Comment: Speci men Type: BLOOD SPECIMENOrdering Facility: [facility] Address: [address] [place] [address] Performed By: #### 5 8410-2 ####[facility]IA [id number] [place] [address] [place] Nucleated RBC (Bld) [#/Vol] 10*3/uL Normal <0.01 [facility] Comment on above: Order Comment: Speci men Type: BLOOD SPECIMENOrdering Facility: [facility] Address: [address] [place] [address] Performed By: #### 5 8410-2 ####[facility]IA [id number] [place] [address] [place] Platelet mean volume (Bld) [Entitic vol] 9.5 fL Normal 9.0-12.7 [facility] Comment on above: Order Comment: Speci men Type: BLOOD SPECIMENOrdering Facility: [facility] Address: [address] [place] [address] Performed By: #### 5 8410-2 ####[facility]IA [id number] [place] [address] [place] Platelets (Bld) [#/Vol] 211 10*3/uL Normal 150-400 [facility] Comment on above: Order Comment: Speci men Type: BLOOD SPECIMENOrdering Facility: [facility] Address: [address] [place] [address] Performed By: #### 5 8410-2 ####[facility]IA [id number] [place] [address] [place] RBC (Bld) [#/Vol] 2.45 10*6/uL Low 4.20-6.00 [facility] Comment on above: Order Comment: Speci men Type: BLOOD SPECIMENOrdering Facility: [facility] Address: [address] [place] [address] Performed By: #### 5 8410-2 ####[facility]IA [id number] [place] [address] [place] WBC (Bld) [#/Vol] 17.80 10*3/uL High 3.70-11.00 [facility] Comment on above: Order Comment: Speci men Type: BLOOD SPECIMENOrdering Facility: [facility] Address: [address] [place] [address] Performed By: #### 5 8410-2 ####[facility]CL[facility] [id number] [address] [address] [place] CONSULT PROGon 08-30-2024 CONSULT PROG Normal [facility] CRP SerPl-mCncon 08-30-2024 CRP [Mass/Vol] 21.6 mg/dL High <0.9 [facility] Comment on above: Order Comment: Speci men Type: BLOOD SPECIMENOrdering Facility: [facility] Address: [address] [place] [address] Performed By: #### 2 777-1, , , 1988-02 ####[facility]CLIA [id number] [place] [id number] [place] Comprehensive metabolic 2000 panelon 08-30-2024 Albumin [Mass/Vol] 3.6 g/dL Low 3.9-4.9 [facility] Comment on above: Order Comment: Speci men Type: BLOOD SPECIMENOrdering Facility: [facility] Address: [address] [place] [address] Performed By: #### 2 777-1, , , 1988-02 ####[facility]IA [id number] [place] [address] [place] ALP [Catalytic activity/Vol] 63 U/L Normal 38-113 [facility] Comment on above: Order Comment: Speci men Type: BLOOD SPECIMENOrdering Facility: [facility] Address: [address] [place] [address] Result Comment: Resu lts may be falsely decreased due to interference from hemolysis. Suggest reorder as clinically indicated. Performed By: #### 2 777-1, , , 1988-02 ####[facility]CLIA [id number] [place] [id number] [place] ALT [Catalytic activity/Vol] 80 U/L High 10-54 [facility] Comment on above: Order Comment: Speci men Type: BLOOD SPECIMENOrdering Facility: [facility] Address: [address] [place] [address] Result Comment: Resu lts may be falsely increased due to interference from hemolysis. Suggest reorder as clinically indicated. Performed By: #### 2 777-1, , , 1988-02 ####[facility]CL[facility] [id number] [facility] [place] [address] [place] Anion gap [Moles/Vol] 13 mmol/L Normal 8-15 [facility] Comment on above: Order Comment: Speci men Type: BLOOD SPECIMENOrdering Facility: [facility] Address: [address] [place] [address] Performed By: #### 2 777-1, , , 1988-02 ####[facility]CLIA [id number] [place] [address] [place] AST [Catalytic activity/Vol] 77 U/L High 14-40 [facility] Comment on above: Order Comment: Speci men Type: BLOOD SPECIMENOrdering Facility: [facility] Address: [address] [place] [address] Result Comment: Resu lts may be falsely increased due to interference from hemolysis. Suggest reorder as clinically indicated. Performed By: #### 2 777-1, , , 1988-02 ####[facility]IA [id number] [facility] [place] [address] [place] Bilirubin [Mass/Vol] 0.4 mg/dL Normal 0.2-1.3 [facility] Comment on above: Order Comment: Speci men Type: BLOOD SPECIMENOrdering Facility: [facility] Address: [address] [place] [address] Performed By: #### 2 777-1, , , 1988-02 ####[facility] [id number] [address] [address] [place] Calcium [Mass/Vol] 8.5 mg/dL Normal 8.5-10.2 [facility] Comment on above: Order Comment: Speci men Type: BLOOD SPECIMENOrdering Facility: [facility] Address: [address] [place], [place] [address] Performed By: #### 2 777-1, , , 1988-02 ####[facility] [id number] [place] [id number] [place] Chloride [Moles/Vol] 99 mmol/L Normal 98-107 [facility] Comment on above: Order Comment: Speci men Type: BLOOD SPECIMENOrdering Facility: [facility] Address: [address] [place] [address] Performed By: #### 2 777-1, , , 1988-02 ####[facility] [id number] [place] [address] [place] CO2 [Moles/Vol] 25 mmol/L Normal 22-30 [facility] Comment on above: Order Comment: Speci men Type: BLOOD SPECIMENOrdering Facility: [facility] Address: [address] [place] [address] Performed By: #### 2 777-1, , , 1988-02 ####[facility] [id number] [place] [id number] [place] Creatinine [Mass/Vol] 0.79 mg/dL Normal 0.73-1.22 [facility] Comment on above: Order Comment: Speci men Type: BLOOD SPECIMENOrdering Facility: [facility] Address: [address] [place] [address] Performed By: #### 2 777-1, , , 1988-02 ####[facility]CLIA [id number] [place] [address] [place] Creatinine and Glomerular filtration rate.predicted panel (S/P/Bld) 106 mL/min/1.73m??? Normal >=60 [facility] Comment on above: Order Comment: Theo narvaez Type: BLOOD SPECIMENOrdering Facility: [facility] Address: [address] [place] [address] Result Comment: Marisa mated Glomerular Filtration Rate [...] By: #### 2 777-1, , , 1988-02 ####[facility] [id number] [place] [address] [place] Glucose [Mass/Vol] 203 mg/dL High 74-99 [facility] Comment on above: Order Comment: Theo narvaez Type: BLOOD SPECIMENOrdering Facility: [facility] Address: [address] [place] [address] Result Comment: The [place] [employer] (ADA) provides guidance for cutoff [...] Standards of Medical Care in Diabetes 2016, [place] [employer]. Diabetes Care. 2016.39(Suppl 1). Performed By: #### 2 777-1, , , 1988-02 ####[facility] [id number] [place] [id number] [place] Potassium [Moles/Vol] Normal [facility] Comment on above: Order Comment: Speci men Type: BLOOD SPECIMENOrdering Facility: [facility] Address: [address] [place] [address] Result Comment: Unab le to assay due to interference from hemolysis. Suggest reorder as clinically indicated. Performed By: #### 2 777-1, , , 1988-02 ####[facility]CLIA [id number] [place] [address] [place] Protein [Mass/Vol] 5.9 g/dL Low 6.3-8.0 [facility] Comment on above: Order Comment: Speci men Type: BLOOD SPECIMENOrdering Facility: [facility] Address: [address] [place] [address] Performed By: #### 2 777-1, , , 1988-02 ####[facility]IA [id number] [place] [address] [place] Sodium [Moles/Vol] 137 mmol/L Normal 136-144 [facility] Comment on above: Order Comment: Speci men Type: BLOOD SPECIMENOrdering Facility: [facility] Address: [address] [place] [address] Performed By: #### 2 777-1, , , 1988-02 ####[facility]IA [id number] [place] [id number] [place] Urea nitrogen [Mass/Vol] 9 mg/dL Normal 9-24 [facility] Comment on above: Order Comment: Speci men Type: BLOOD SPECIMENOrdering Facility: [facility] Address: [address] [place] [address] Performed By: #### 2 777-1, , , 1988-02 ####[facility] [id number] [place] [address] [place] Albumin [Mass/Vol] 3.9 g/dL Normal 3.9-4.9 [facility] Comment on above: Order Comment: Speci men Type: BLOOD SPECIMENOrdering Facility: [facility] Address: [address] [place] [address] Performed By: #### 2 4323-8, 83504-2, 2776- ####[facility] [id number] [place] [address] [place] ALP [Catalytic activity/Vol] 56 U/L Normal 38-113 [facility] Comment on above: Order Comment: Speci men Type: BLOOD SPECIMENOrdering Facility: [facility] Address: [address] [place] [address] Performed By: #### 2 4323-8, 59099-6, 2776- ####[facility] [id number] [place] [address] [place] ALT [Catalytic activity/Vol] 98 U/L High 10-54 [facility] Comment on above: Order Comment: Speci men Type: BLOOD SPECIMENOrdering Facility: [facility] Address: [address] [place] [address] Performed By: #### 2 4323-8, 73206-1, 2776-10 ####[facility] [id number] [place] [address] [place] Anion gap [Moles/Vol] 9 mmol/L Normal 8-15 [facility] Comment on above: Order Comment: Speci men Type: BLOOD SPECIMENOrdering Facility: [facility] Address: [address] [place] [address] Performed By: #### 2 4323-8, 75748-9, 2776- ####[facility] [id number] [place] [address] [place] AST [Catalytic activity/Vol] 82 U/L High 14-40 [facility] Comment on above: Order Comment: Speci men Type: BLOOD SPECIMENOrdering Facility: [facility] Address: [address] [place] [address] Performed By: #### 2 4323-8, , 2776-10 ####[facility] [id number] [place] [address] [place] Bilirubin [Mass/Vol] 0.3 mg/dL Normal 0.2-1.3 [facility] Comment on above: Order Comment: Speci men Type: BLOOD SPECIMENOrdering Facility: [facility] Address: [address] [place] [address] Performed By: #### 2 4323-8, , 2776-10 ####[facility] [id number] [place] [address] [place] Calcium [Mass/Vol] 8.2 mg/dL Low 8.5-10.2 [facility] Comment on above: Order Comment: Speci men Type: BLOOD SPECIMENOrdering Facility: [facility] Address: [address] [place] [address] Performed By: #### 2 4323-8, , 2776-10 ####[facility]CLIA [id number] [place] [address] [place] Chloride [Moles/Vol] 101 mmol/L Normal 98-107 [facility] Comment on above: Order Comment: Speci men Type: BLOOD SPECIMENOrdering Facility: [facility] Address: [address] [place] [id number] Performed By: #### 2 4323-8, , 2776-10 ####[facility]CLIA [id number] [place] [id number] [place] CO2 [Moles/Vol] 27 mmol/L Normal 22-30 [facility] Comment on above: Order Comment: Speci men Type: BLOOD SPECIMENOrdering Facility: [facility] Address: [address] [id number] Performed By: #### 2 4323-8, , 2776-10 ####[facility] [id number] [address] [address] [place] Creatinine [Mass/Vol] 0.98 mg/dL Normal 0.73-1.22 [facility] Comment on above: Order Comment: Speci men Type: BLOOD SPECIMENOrdering Facility: [facility] Address: [address] [place] [address] Performed By: #### 2 4323-8, , 2776-10 ####[facility]IA [id number] [place] [address] [place] Creatinine and Glomerular filtration rate.predicted panel (S/P/Bld) 92 mL/min/1.73m??? Normal >=60 [facility] Comment on above: Order Comment: Speci men Type: BLOOD SPECIMENOrdering Facility: [facility] Address: [address] [place] [address] Result Comment: Marisa mated Glomerular Filtration Rate [...] Performed By: #### 2 4323-8, , 2776-10 ####[facility] LABIA [id number] [address] [place] [id number] [place] Glucose [Mass/Vol] 172 mg/dL High 74-99 [facility] Comment on above: Order Comment: Speci men Type: BLOOD SPECIMENOrdering Facility: [facility] Address: [address] [place] [address] Result Comment: The [place] [employer] (ADA) provides guidance for cutoff [...] Standards of Medical Care in Diabetes 2016, [place] [employer]. Diabetes Care. 2016.39(Suppl 1). Performed By: #### 2 4323-8, , 2776-10 ####[facility] [id number] [place] [address] [place] Potassium [Moles/Vol] 4.0 mmol/L Normal 3.7-5.1 [facility] Comment on above: Order Comment: Speci men Type: BLOOD SPECIMENOrdering Facility: [facility] Address: [address] [place] [address] Performed By: #### 2 4323-8, , 2776-10 ####[facility] [id number] [place] [address] [place] Protein [Mass/Vol] 5.4 g/dL Low 6.3-8.0 [facility] Comment on above: Order Comment: Speci men Type: BLOOD SPECIMENOrdering Facility: [facility] Address: [address] [place] [address] Performed By: #### 2 4323-8, , 2776-10 ####[facility]IA [id number] [place] [id number] [place] Sodium [Moles/Vol] 137 mmol/L Normal 136-144 [facility] Comment on above: Order Comment: Speci men Type: BLOOD SPECIMENOrdering Facility: [facility] Address: [address] [id number] Performed By: #### 2 4323-8, 38640-4, 2776-10 ####[facility] [id number] [place] [id number] [place] Urea nitrogen [Mass/Vol] 12 mg/dL Normal 9-24 [facility] Comment on above: Order Comment: Speci men Type: BLOOD SPECIMENOrdering Facility: [facility] Address: [address] [place], [place] [address] Performed By: #### 2 4323-8, 06457-5, 2776-10 ####[facility]IA [id number] [address] [place] [address] [place] Magnesium SerPl-mCncon 08-30 Magnesium [Mass/Vol] 2.1 mg/dL Normal 1.7-2.3 [facility] Comment on above: Order Comment: Speci men Type: BLOOD SPECIMENOrdering Facility: [facility] Address: [address] [place] [address] Performed By: #### 2 777-1, 16744-0, 05907-2, 1988-02 ####[facility] [id number] [place] [address] [place] Magnesium [Mass/Vol] 1.9 mg/dL Normal 1.7-2.3 [facility] Comment on above: Order Comment: Speci men Type: BLOOD SPECIMENOrdering Facility: [facility] Address: [address] [place], [place] [address] Performed By: #### 2 4323-8, 50021-9, 2776-10 ####[facility]IA [id number] [address] [id number] [place] PT panel Coag (PPP)on 2023 INR Coag (PPP) [Relative time] 1.1 {INR} Normal 0.9-1.3 [facility] Comment on above: Order Comment: Speci men Type: BLOOD SPECIMENOrdering Facility: [facility] Address: [address] [place] [address] Result Comment: Carmita min K Antagonist (VKA) Therapeutic Range: INR 2 to 3 (Target INR of 2.5)Note: For patients treated with VKA drugs, such as warfarin, the [place] [employer] 2012 Guideline recommends [...] al. Chest 2012, 141:7S-47SNishimshira RA, et al. [facility] 2017, 70: 252-289 Performed By: #### 3 4528-0, 93792-7 ####[facility] [id number] [place] [address] [place] PT Coag (PPP) [Time] 11.4 s Normal 9.7-13.0 [facility] Comment on above: Order Comment: Theo narvaez Type: BLOOD SPECIMENOrdering Facility: [facility] Address: [address] [place] [address] Performed By: #### 3 4528-0, 45513-6 ####[facility] [id number] [place] [address] [place] INR Coag (PPP) [Relative time] 1.1 {INR} Normal 0.9-1.3 [facility] Comment on above: Order Comment: Theo narvaez Type: BLOOD SPECIMENOrdering Facility: [facility] Address: [address] [place] [address] Result Comment: Carmita min K Antagonist (VKA) Therapeutic Range: INR 2 to 3 (Target INR of 2.5)Note: For patients treated with VKA drugs, such as warfarin, the [place] [employer] 2012 Guideline recommends [...] al. Chest 2012, 141:7S-47SNishimura RA, et al. [facility] 2017, 70: 252-289 Performed By: #### 3 4528-0, 10487-3 ####[facility] [id number] [place] [address] [place] PT Coag (PPP) [Time] 11.7 s Normal 9.7-13.0 [facility] Comment on above: Order Comment: Speci men Type: BLOOD SPECIMENOrdering Facility: [facility] Address: [address] [place] [address] Performed By: #### 3 4528-0, 60972-1 ####[facility] [id number] [place] [address] [place] Phosphate SerPl-mCncon 08-30 Phosphate [Mass/Vol] 1.9 mg/dL Low 2.7-4.8 [facility] Comment on above: Order Comment: Speci men Type: BLOOD SPECIMENOrdering Facility: [facility] Address: [address] [place] [address] Performed By: #### 2 777-1, 53383-3, 44057-1, 1987- ####[facility] [id number] [place] [address] [place] Phosphate [Mass/Vol] 1.9 mg/dL Low 2.7-4.8 [facility] Comment on above: Order Comment: Speci men Type: BLOOD SPECIMENOrdering Facility: [facility] Address: [address] [place] [address] Result Comment: Resu lt rechecked. Performed By: #### 2 4323-8, 16072-1, 2777-1 ####[facility] [id number] [place] [address] [place] aPTT PPPon 08-30-2024 aPTT Coag (PPP) [Time] 27.9 s Normal 23.0-32.4 [facility] Comment on above: Order Comment: Speci men Type: BLOOD SPECIMENOrdering Facility: [facility] Address: [address] [place] [address] Performed By: #### 3 4528-0, 20510-1 ####[facility]IA [id number] [address] [place] aPTT Coag (PPP) [Time] 31.4 s Normal 23.0-32.4 [facility] Comment on above: Order Comment: Speci men Type: BLOOD SPECIMENOrdering Facility: [facility] Address: [address] [place] [address] Performed By: #### 3 4528-0, 59698-8 ####[facility] [id number] [place] [address] [place] Basic metabolic 2000 panelon 08-29-2024 Anion gap [Moles/Vol] 13 mmol/L Normal 8-15 [facility] Comment on above: Order Comment: Speci men Type: BLOOD SPECIMENOrdering Facility: [facility] Address: [address] [place] [address] Performed By: #### 2 4325-3, 34535-4 ####[facility]CLIA [id number] [id number] [address] [place] Calcium [Mass/Vol] 8.0 mg/dL Low 8.5-10.2 [facility] Comment on above: Order Comment: Speci men Type: BLOOD SPECIMENOrdering Facility: [facility] Address: [address] [place] [address] Performed By: #### 2 4325-3, 70949-7 ####[facility]CL[facility] [id number] [place] [address] [place] Chloride [Moles/Vol] 103 mmol/L Normal 98-107 [facility] Comment on above: Order Comment: Speci men Type: BLOOD SPECIMENOrdering Facility: [facility] Address: [address] [place] [address] Performed By: #### 2 4325-3, 79555-0 ####[facility] [id number] [place] [address] [place] CO2 [Moles/Vol] 22 mmol/L Normal 22-30 [facility] Comment on above: Order Comment: Speci men Type: BLOOD SPECIMENOrdering Facility: [facility] Address: [address] [place] [address] Performed By: #### 2 4325-3, 26927-8 ####[facility] [id number] [place] [address] [place] Creatinine [Mass/Vol] 0.93 mg/dL Normal 0.73-1.22 [facility] Comment on above: Order Comment: Speci men Type: BLOOD SPECIMENOrdering Facility: [facility] Address: [address] [place] [address] Performed By: #### 2 4325-3, 57335-2 ####[facility] [id number] [place] [address] [place] Creatinine and Glomerular filtration rate.predicted panel (S/P/Bld) 98 mL/min/1.73m??? Normal >=60 [facility] Comment on above: Order Comment: Speci men Type: BLOOD SPECIMENOrdering Facility: [facility] Address: [address] [place] [address] Result Comment: Marisa mated Glomerular Filtration Rate [...] actual GFR. Performed By: #### 2 4325-3, 06511-5 ####[facility]IA [id number] [place] [address] [place] Glucose [Mass/Vol] 206 mg/dL High 74-99 [facility] Comment on above: Order Comment: Theo narvaez Type: BLOOD SPECIMENOrdering Facility: [facility] Address: [address] [place] [address] Result Comment: The [place] [employer] (ADA) provides guidance for cutoff [...] Standards of Medical Care in Diabetes 2016, [place] [employer]. Diabetes Care. 2016.39(Suppl 1). Performed By: #### 2 4325-3, 89042-4 ####[facility]IA [id number] [place] [address] [place] Potassium [Moles/Vol] Normal [facility] Comment on above: Order Comment: Theo narvaez Type: BLOOD SPECIMENOrdering Facility: [facility] Address: [address] [place] [address] Result Comment: Unab le to assay due to interference from hemolysis. Suggest reorder as clinically indicated. Performed By: #### 2 4325-3, 59622-1 ####[facility] [id number] [place] [address] [place] Sodium [Moles/Vol] 138 mmol/L Normal 136-144 [facility] Comment on above: Order Comment: Speci men Type: BLOOD SPECIMENOrdering Facility: [facility] Address: [address] [place] [address] Performed By: #### 2 4325-3, 31705-5 ####[facility]IA [id number] [place] [address] [place] Urea nitrogen [Mass/Vol] 14 mg/dL Normal 9-24 [facility] Comment on above: Order Comment: Speci men Type: BLOOD SPECIMENOrdering Facility: [facility] Address: [address] [place] [address] Performed By: #### 2 4325-3, 00254-5 ####[facility] [id number] [place] [address] [place] CASE MGT INIT ASSESon 2023 CASE MGT INIT ASSES Normal [facility] CBC W Auto Differential pane l (Bld)on 08-29-2024 Basophils (Bld) [#/Vol] 10*3/uL Normal <0.11 [facility] Comment on above: Order Comment: Speci men Type: BLOOD SPECIMENOrdering Facility: [facility] Address: [address] [place] [address] Performed By: #### 5 7021-8 ####[facility] [id number] [place] [address] [place] Basophils/100 WBC (Bld) 0.1 % Normal [facility] Comment on above: Order Comment: Speci men Type: BLOOD SPECIMENOrdering Facility: [facility] Address: [address] [place] [address] Performed By: #### 5 7021-8 ####[facility] [id number] [place] [address] [place] Differential cell count method Nom (Bld) Auto Normal [facility] Comment on above: Order Comment: Speci men Type: BLOOD SPECIMENOrdering Facility: [facility] Address: [address] [place] [address] Performed By: #### 5 7021-8 ####[facility] [id number] [place] [address] [place] Eosinophils (Bld) [#/Vol] 10*3/uL Normal <0.46 [facility] Comment on above: Order Comment: Speci men Type: BLOOD SPECIMENOrdering Facility: [facility] Address: [address] [place] [address] Performed By: #### 5 7021-8 ####[facility] [id number] [place] [address] [place] Eosinophils/100 WBC (Bld) 0.0 % Normal [facility] Comment on above: Order Comment: Speci men Type: BLOOD SPECIMENOrdering Facility: [facility] Address: [address] [place] [address] Performed By: #### 5 7021-8 ####[facility] [id number] [place] [address] [place] Erythrocyte distribution width (RBC) [Ratio] 12.8 % Normal 11.5-15.0 [facility] Comment on above: Order Comment: Speci men Type: BLOOD SPECIMENOrdering Facility: [facility] Address: [address] [place] [address] Performed By: #### 5 7021-8 ####[facility] [id number] [place] [address] [place] Hematocrit (Bld) [Volume fraction] 26.7 % Low 39.0-51.0 [facility] Comment on above: Order Comment: Speci men Type: BLOOD SPECIMENOrdering Facility: [facility] Address: [address] [place] [address] Performed By: #### 5 7021-8 ####[facility] [id number] [place] [address] [place] Hemoglobin (Bld) [Mass/Vol] 9.0 g/dL Low 13.0-17.0 [facility] Comment on above: Order Comment: Speci men Type: BLOOD SPECIMENOrdering Facility: [facility] Address: [address] [place] [address] Performed By: #### 5 7021-8 ####[facility] [id number] [place] [address] [place] Immature granulocytes (Bld) [#/Vol] 0.09 10*3/uL Normal <0.10 [facility] Comment on above: Order Comment: Speci men Type: BLOOD SPECIMENOrdering Facility: [facility] Address: [address] [place] [address] Performed By: #### 5 7021-8 ####[facility] [id number] [place] [address] [place] Immature granulocytes/100 WBC (Bld) 0.6 % Normal [facility] Comment on above: Order Comment: Speci men Type: BLOOD SPECIMENOrdering Facility: [facility] Address: [address] [place] [address] Performed By: #### 5 7021-8 ####[facility] [id number] [place] [address] [place] Lymphocytes (Bld) [#/Vol] 0.83 10*3/uL Low 1.00-4.00 [facility] Comment on above: Order Comment: Speci men Type: BLOOD SPECIMENOrdering Facility: [facility] Address: [address] [place] [address] Performed By: #### 5 7021-8 ####[facility] [id number] [place] [address] [place] Lymphocytes/100 WBC (Bld) 5.7 % Normal [facility] Comment on above: Order Comment: Speci men Type: BLOOD SPECIMENOrdering Facility: [facility] Address: [address] [place] [address] Performed By: #### 5 7021-8 ####[facility] [id number] [place] [address] [place] MCH (RBC) [Entitic mass] 29.7 pg Normal 26.0-34.0 [facility] Comment on above: Order Comment: Speci men Type: BLOOD SPECIMENOrdering Facility: [facility] Address: [address] [place] [address] Performed By: #### 5 7021-8 ####[facility] [id number] [place] [address] [place] MCHC (RBC) [Mass/Vol] 33.7 g/dL Normal 30.5-36.0 [facility] Comment on above: Order Comment: Speci men Type: BLOOD SPECIMENOrdering Facility: [facility] Address: [address] [place] [address] Performed By: #### 5 7021-8 ####[facility] [id number] [place] [address] [place] MCV (RBC) [Entitic vol] 88.1 fL Normal 80.0-100.0 [facility] Comment on above: Order Comment: Speci men Type: BLOOD SPECIMENOrdering Facility: [facility] Address: [address] [place] [address] Performed By: #### 5 7021-8 ####[facility] [id number] [place] [address] [place] Monocytes (Bld) [#/Vol] 1.13 10*3/uL High <0.87 [facility] Comment on above: Order Comment: Speci men Type: BLOOD SPECIMENOrdering Facility: [facility] Address: [address] [place] [address] Performed By: #### 5 7021-8 ####[facility] [id number] [place] [address] [place] Monocytes/100 WBC (Bld) 7.7 % Normal [facility] Comment on above: Order Comment: Speci men Type: BLOOD SPECIMENOrdering Facility: [facility] Address: [address] [place] [address] Performed By: #### 5 7021-8 ####[facility] [id number] [place] [address] [place] Neutrophils (Bld) [#/Vol] 12.57 10*3/uL High 1.45-7.50 [facility] Comment on above: Order Comment: Speci men Type: BLOOD SPECIMENOrdering Facility: [facility] Address: [address] [place] [address] Performed By: #### 5 7021-8 ####[facility] [id number] [place] [address] [place] Neutrophils/100 WBC (Bld) 85.9 % Normal [facility] Comment on above: Order Comment: Speci men Type: BLOOD SPECIMENOrdering Facility: [facility] Address: [address] [place] [address] Performed By: #### 5 7021-8 ####[facility] [id number] [place] [address] [place] Nucleated RBC (Bld) [#/Vol] 10*3/uL Normal <0.01 [facility] Comment on above: Order Comment: Speci men Type: BLOOD SPECIMENOrdering Facility: [facility] Address: [address] [place] [address] Performed By: #### 5 7021-8 ####[facility] [id number] [place] [address] [place] Nucleated RBC/100 WBC (Bld) [Ratio] 0.0 /100 WBC Normal [facility] Comment on above: Order Comment: Speci men Type: BLOOD SPECIMENOrdering Facility: [facility] Address: [address] [place] [address] Performed By: #### 5 7021-8 ####[facility] [id number] [place] [address] [place] Platelet mean volume (Bld) [Entitic vol] 9.9 fL Normal 9.0-12.7 [facility] Comment on above: Order Comment: Speci men Type: BLOOD SPECIMENOrdering Facility: [facility] Address: [address] [place] [address] Performed By: #### 5 7021-8 ####[facility] [id number] [place] [address] [place] Platelets (Bld) [#/Vol] 209 10*3/uL Normal 150-400 [facility] Comment on above: Order Comment: Speci men Type: BLOOD SPECIMENOrdering Facility: [facility] Address: [address] [place] [address] Performed By: #### 5 7021-8 ####[facility] [id number] [place] [address] [place] RBC (Bld) [#/Vol] 3.03 10*6/uL Low 4.20-6.00 [facility] Comment on above: Order Comment: Speci men Type: BLOOD SPECIMENOrdering Facility: [facility] Address: [address] [place] [address] Performed By: #### 5 7021-8 ####[facility] [id number] [place] [address] [place] WBC (Bld) [#/Vol] 14.63 10*3/uL High 3.70-11.00 [facility] Comment on above: Order Comment: Speci men Type: BLOOD SPECIMENOrdering Facility: [facility] Address: [address] [place] [address] Performed By: #### 5 7021-8 ####[facility] [id number] [place] [address] [place] CONSULTon 08-29-2024 CONSULT Normal [facility] Hepatic function 2000 panelo n 08-29-2024 Albumin [Mass/Vol] 3.7 g/dL Low 3.9-4.9 [facility] Comment on above: Order Comment: Speci men Type: BLOOD SPECIMENOrdering Facility: [facility] Address: [address] [place] [address] Performed By: #### 2 4325-3, 90594-4 ####[facility] [id number] [place] [address] [place] ALP [Catalytic activity/Vol] 55 U/L Normal 38-113 [facility] Comment on above: Order Comment: Speci men Type: BLOOD SPECIMENOrdering Facility: [facility] Address: [address] [place] [address] Performed By: #### 2 4325-3, 48755-9 ####[facility] [id number] [place] [address] [place] ALT [Catalytic activity/Vol] 113 U/L High 10-54 [facility] Comment on above: Order Comment: Speci men Type: BLOOD SPECIMENOrdering Facility: [facility] Address: [address] [place] [address] Result Comment: Resu lts may be falsely increased due to interference from hemolysis. Suggest reorder as clinically indicated. Performed By: #### 2 4325-3, 75596-5 ####[facility] LABCLIA [id number] [address] [address] [place] AST [Catalytic activity/Vol] 121 U/L High 14-40 [facility] Comment on above: Order Comment: Speci men Type: BLOOD SPECIMENOrdering Facility: [facility] Address: [address] [place] [address] Result Comment: Resu lts may be falsely increased due to interference from hemolysis. Suggest reorder as clinically indicated. Performed By: #### 2 4325-3, 36633-9 ####[facility]CLIA [id number] [place] [address] [place] Bilirubin [Mass/Vol] 0.6 mg/dL Normal 0.2-1.3 [facility] Comment on above: Order Comment: Speci men Type: BLOOD SPECIMENOrdering Facility: [facility] Address: [address] [place] [address] Performed By: #### 2 4325-3, 72889-9 ####[facility] LABIA [id number] [place] [address] [place] Bilirubin.conjugated [Mass/Vol] mg/dL Normal <0.2 [facility] Comment on above: Order Comment: Speci men Type: BLOOD SPECIMENOrdering Facility: [facility] Address: [address] [place] [address] Result Comment: Resu lts may be falsely decreased due to interference from hemolysis. Suggest reorder as clinically indicated. Performed By: #### 2 4325-3, 56966-9 ####[facility] LABIA [id number] [place] [address] [place] Protein [Mass/Vol] 5.3 g/dL Low 6.3-8.0 [facility] Comment on above: Order Comment: Speci men Type: BLOOD SPECIMENOrdering Facility: [facility] Address: [address] [place] [address] Performed By: #### 2 4325-3, 12397-2 ####[facility]CLIA [id number] [place] [address] [place] Lactate (Bld) [Moles/Vol]on 08-29-2024 Lactate [Moles/Vol] 1.8 mmol/L Normal 0.5-2.2 [facility] Comment on above: Order Comment: Speci men Type: BLOOD SPECIMENOrdering Facility: [facility] Address: [address] [place] [address] Performed By: #### 3 2693-4 ####[facility] [id number] [place] [address] [place] NUTRITIONon 08-29-2024 NUTRITION Normal [facility] THERAPY NTon 08-29-2024 THERAPY NT Normal [facility] NT Normal [facility] ANES POSTPROC EVALon 024 ANES POSTPROC EVAL Normal [facility] ANES PRE-OPon 08-28-2024 ANES PRE-OP Normal [facility] ARTERIAL BLOOD GASESon 08-28 Base excess Calc (Bld) [Moles/Vol] 0 mmol/L Normal 0-2 [facility] Comment on above: Order Comment: Speci men Type: ARTERIAL BLOOD SPECIMENOrdering Facility: [facility] Address: [address] [place] [address] Performed By: #### A LLBG ####[facility] LABIA [id number] [place] [id number] [place] Calcium.ionized (Bld) [Mass/Vol] 1.14 mmol/L Normal 1.08-1.30 [facility] Comment on above: Order Comment: Speci men Type: ARTERIAL BLOOD SPECIMENOrdering Facility: [facility] Address: [address] [place] [address] Performed By: #### A LLBG ####[facility]CLIA [id number] [place] [address] [place] Calcium.ionized adjusted to pH 7.4 (BldA) [Moles/Vol] 1.12 mmol/L Normal 1.08-1.30 [facility] Comment on above: Order Comment: Speci men Type: ARTERIAL BLOOD SPECIMENOrdering Facility: [facility] Address: [address] [place] [address] Performed By: #### A LLBG ####[facility]CLIA [id number] [place] [address] [place] Carboxyhemoglobin (BldA) [Mass fraction] 1.3 % Normal 0.0-2.0 [facility] Comment on above: Order Comment: Speci men Type: ARTERIAL BLOOD SPECIMENOrdering Facility: [facility] Address: [address] [place] [address] Result Comment: Carb oxyhemoglobin Reference Range for Smokers: 2.0-8.0% Performed By: #### A LLBG ####[facility]CLIA [id number] [place] [address] [place] CO2 (Bld) [Partial pressure] 44 mm Hg Normal 36-46 [facility] Comment on above: Order Comment: Speci men Type: ARTERIAL BLOOD SPECIMENOrdering Facility: [facility] Address: [address] [place] [address] Performed By: #### A LLBG ####[facility]CLIA [id number] [place] [address] [place] CO2 adjusted to patient's actual temperature (Bld) [Partial pressure] 44 mmHg Normal 36-46 [facility] Comment on above: Order Comment: Speci men Type: ARTERIAL BLOOD SPECIMENOrdering Facility: [facility] Address: [address] [place] [address] Performed By: #### A LLBG ####[facility]CLIA [id number] [place] [address] [place] Glucose [Mass/Vol] 171 mg/dL High 60-105 [facility] Comment on above: Order Comment: Speci men Type: ARTERIAL BLOOD SPECIMENOrdering Facility: [facility] Address: [address] [place] [address] Performed By: #### A LLBG ####[facility] LABCLIA [id number] [place] [address] [place] HCO3 (Bld) [Moles/Vol] 25 mmol/L Normal 22-26 [facility] Comment on above: Order Comment: Speci men Type: ARTERIAL BLOOD SPECIMENOrdering Facility: [facility] Address: [address] [place] [address] Performed By: #### A LLBG ####[facility]CLIA [id number] [place] [address] [place] Hematocrit (Bld) [Volume fraction] 26.6 % Low 39.0-51.0 [facility] Comment on above: Order Comment: Speci men Type: ARTERIAL BLOOD SPECIMENOrdering Facility: [facility] Address: [address] [place] [address] Performed By: #### A LLBG ####[facility]CLIA [id number] [place] [address] [place] Hemoglobin (Bld) [Mass/Vol] 8.6 g/dL Low 13.0-17.0 [facility] Comment on above: Order Comment: Speci men Type: ARTERIAL BLOOD SPECIMENOrdering Facility: [facility] Address: [address] [place] [address] Performed By: #### A LLBG ####[facility]CLIA [id number] [place] [address] [place] Lactate [Moles/Vol] 3.3 mmol/L High 0.5-2.2 [facility] Comment on above: Order Comment: Speci men Type: ARTERIAL BLOOD SPECIMENOrdering Facility: [facility] Address: [address] [place] [address] Performed By: #### A LLBG ####[facility]CLIA [id number] [place] [address] [place] Methemoglobin (Bld) [Mass fraction] 0.7 % Normal 0.0-1.5 [facility] Comment on above: Order Comment: Speci men Type: ARTERIAL BLOOD SPECIMENOrdering Facility: [facility] Address: [address] [place] [address] Performed By: #### A LLBG ####[facility]CLIA [id number] [place] [address] [place] Oxygen (Bld) [Partial pressure] 201 mm Hg High 85-95 [facility] Comment on above: Order Comment: Speci men Type: ARTERIAL BLOOD SPECIMENOrdering Facility: [facility] Address: [address] [place] [address] Performed By: #### A LLBG ####[facility]CLIA [id number] [place] [address] [place] Oxygen adjusted to patient's actual temperature (Bld) [Partial pressure] 201 mmHg High 85-95 [facility] Comment on above: Order Comment: Speci men Type: ARTERIAL BLOOD SPECIMENOrdering Facility: [facility] Address: [address] [place] [address] Performed By: #### A LLBG ####[facility]CLIA [id number] [place] [address] [place] Oxyhemoglobin (BldA) [Mass fraction] 98 % Normal 95-98 [facility] Comment on above: Order Comment: Speci men Type: ARTERIAL BLOOD SPECIMENOrdering Facility: [facility] Address: [address] [place] [address] Performed By: #### A LLBG ####[facility]CLIA [id number] [place] [address] [place] pH (Bld) 7.36 [pH] Normal 7.35-7.45 [facility] Comment on above: Order Comment: Speci men Type: ARTERIAL BLOOD SPECIMENOrdering Facility: [facility] Address: [address] [place] [address] Performed By: #### A LLBG ####[facility]CLIA [id number] [place] [address] [place] pH adjusted to patient's actual temperature (Bld) 7.36 Normal 7.35-7.45 [facility] Comment on above: Order Comment: Speci men Type: ARTERIAL BLOOD SPECIMENOrdering Facility: [facility] Address: [address] [place] [address] Performed By: #### A LLBG ####[facility] LABIA [id number] [place] [address] [place] Potassium [Moles/Vol] 3.6 mmol/L Normal 3.5-5.0 [facility] Comment on above: Order Comment: Speci men Type: ARTERIAL BLOOD SPECIMENOrdering Facility: [facility] Address: [address] [place] [address] Performed By: #### A LLBG ####[facility] LABIA [id number] [place] [address] [place] Sodium [Moles/Vol] 138 mmol/L Normal 136-144 [facility] Comment on above: Order Comment: Speci men Type: ARTERIAL BLOOD SPECIMENOrdering Facility: [facility] Address: [address] [place] [address] Performed By: #### A LLBG ####[facility] LABIA [id number] [place] [address] [place] ARTERIAL BLOOD GASES WITH IO NIZED MAGNESIUMon 08-28-2024 Base excess Calc (Bld) [Moles/Vol] 1 mmol/L Normal 0-2 [facility] Comment on above: Order Comment: Speci men Type: ARTERIAL BLOOD SPECIMENOrdering Facility: [facility] Address: [address] [place] [address] Performed By: #### A LLMG ####[facility] [id number] [place] [address] [place] Calcium.ionized (Bld) [Mass/Vol] 1.16 mmol/L Normal 1.08-1.30 [facility] Comment on above: Order Comment: Speci men Type: ARTERIAL BLOOD SPECIMENOrdering Facility: [facility] Address: [address] [place] [address] Performed By: #### A LLMG ####[facility] [id number] [place] [address] [place] Calcium.ionized adjusted to pH 7.4 (BldA) [Moles/Vol] 1.15 mmol/L Normal 1.08-1.30 [facility] Comment on above: Order Comment: Speci men Type: ARTERIAL BLOOD SPECIMENOrdering Facility: [facility] Address: [address] [place] [address] Performed By: #### A LLMG ####[facility] [id number] [place] [address] [place] Carboxyhemoglobin (BldA) [Mass fraction] 1.5 % Normal 0.0-2.0 [facility] Comment on above: Order Comment: Speci men Type: ARTERIAL BLOOD SPECIMENOrdering Facility: [facility] Address: [address] [place] [address] Result Comment: Carb oxyhemoglobin Reference Range for Smokers: 2.0-8.0% Performed By: #### A LLMG ####[facility] [id number] [place] [address] [place] CO2 (Bld) [Partial pressure] 42 mm Hg Normal 36-46 [facility] Comment on above: Order Comment: Speci men Type: ARTERIAL BLOOD SPECIMENOrdering Facility: [facility] Address: [address] [place] [address] Performed By: #### A LLMG ####[facility] LABCLIA [id number] [place] [address] [place] CO2 adjusted to patient's actual temperature (Bld) [Partial pressure] 42 mmHg Normal 36-46 [facility] Comment on above: Order Comment: Speci men Type: ARTERIAL BLOOD SPECIMENOrdering Facility: [facility] Address: [address] [place] [address] Performed By: #### A LLMG ####[facility] LABCLIA [id number] [place] [address] [place] Glucose [Mass/Vol] 220 mg/dL High 60-105 [facility] Comment on above: Order Comment: Speci men Type: ARTERIAL BLOOD SPECIMENOrdering Facility: [facility] Address: [address] [place] [address] Performed By: #### A LLMG ####[facility] LABCLIA [id number] [place] [address] [place] HCO3 (Bld) [Moles/Vol] 25 mmol/L Normal 22-26 [facility] Comment on above: Order Comment: Speci men Type: ARTERIAL BLOOD SPECIMENOrdering Facility: [facility] Address: [address] [place] [address] Performed By: #### A LLMG ####[facility] LABCLIA [id number] [place] [address] [place] Hematocrit (Bld) [Volume fraction] 32.3 % Low 39.0-51.0 [facility] Comment on above: Order Comment: Speci men Type: ARTERIAL BLOOD SPECIMENOrdering Facility: [facility] Address: [address] [place] [address] Performed By: #### A LLMG ####[facility]CLIA [id number] [place] [address] [place] Hemoglobin (Bld) [Mass/Vol] 10.4 g/dL Low 13.0-17.0 [facility] Comment on above: Order Comment: Speci men Type: ARTERIAL BLOOD SPECIMENOrdering Facility: [facility] Address: [address] [place] [address] Performed By: #### A LLMG ####[facility] LABIA [id number] [place] [address] [place] Lactate [Moles/Vol] 2.0 mmol/L Normal 0.5-2.2 [facility] Comment on above: Order Comment: Speci men Type: ARTERIAL BLOOD SPECIMENOrdering Facility: [facility] Address: [address] [place] [address] Performed By: #### A LLMG ####[facility] LABIA [id number] [place] [address] [place] Magnesium [Moles/Vol] 0.40 mmol/L Low 0.45-0.60 [facility] Comment on above: Order Comment: Speci men Type: ARTERIAL BLOOD SPECIMENOrdering Facility: [facility] Address: [address] [place] [address] Performed By: #### A LLMG ####[facility]IA [id number] [place] [address] [place] Methemoglobin (Bld) [Mass fraction] 0.5 % Normal 0.0-1.5 [facility] Comment on above: Order Comment: Speci men Type: ARTERIAL BLOOD SPECIMENOrdering Facility: [facility] Address: [address] [place] [address] Performed By: #### A LLMG ####[facility]IA [id number] [place] [address] [place] Oxygen (Bld) [Partial pressure] 179 mm Hg High 85-95 [facility] Comment on above: Order Comment: Speci men Type: ARTERIAL BLOOD SPECIMENOrdering Facility: [facility] Address: [address] [place] [address] Performed By: #### A LLMG ####[facility]CLIA [id number] [place] [address] [place] Oxygen adjusted to patient's actual temperature (Bld) [Partial pressure] 179 mmHg High 85-95 [facility] Comment on above: Order Comment: Speci men Type: ARTERIAL BLOOD SPECIMENOrdering Facility: [facility] Address: [address] [place] [address] Performed By: #### A LLMG ####[facility]IA [id number] [place] [address] [place] Oxyhemoglobin (BldA) [Mass fraction] 98 % Normal 95-98 [facility] Comment on above: Order Comment: Speci men Type: ARTERIAL BLOOD SPECIMENOrdering Facility: [facility] Address: [address] [place] [address] Performed By: #### A LLMG ####[facility] [id number] [place] [address] [place] pH (Bld) 7.40 [pH] Normal 7.35-7.45 [facility] Comment on above: Order Comment: Speci men Type: ARTERIAL BLOOD SPECIMENOrdering Facility: [facility] Address: [address] [place] [address] Performed By: #### A LLMG ####[facility]IA [id number] [place] [address] [place] pH adjusted to patient's actual temperature (Bld) 7.40 Normal 7.35-7.45 [facility] Comment on above: Order Comment: Speci men Type: ARTERIAL BLOOD SPECIMENOrdering Facility: [facility] Address: [address] [place] [address] Performed By: #### A LLMG ####[facility]IA [id number] [place] [address] [place] Potassium [Moles/Vol] 4.1 mmol/L Normal 3.5-5.0 [facility] Comment on above: Order Comment: Speci men Type: ARTERIAL BLOOD SPECIMENOrdering Facility: [facility] Address: [address] [place] [address] Performed By: #### A LLMG ####[facility] [id number] [place] [address] [place] Sodium [Moles/Vol] 137 mmol/L Normal 136-144 [facility] Comment on above: Order Comment: Speci men Type: ARTERIAL BLOOD SPECIMENOrdering Facility: [facility] Address: [address] [place] [address] Performed By: #### A LLMG ####[facility] [id number] [place] [address] [place] Base excess Calc (Bld) [Moles/Vol] 2 mmol/L Normal 0-2 [facility] Comment on above: Order Comment: Speci men Type: ARTERIAL BLOOD SPECIMENOrdering Facility: [facility] Address: [address] [place] [address] Performed By: #### A LLMG ####[facility] [id number] [place] [address] [place] Calcium.ionized (Bld) [Mass/Vol] 1.21 mmol/L Normal 1.08-1.30 [facility] Comment on above: Order Comment: Speci men Type: ARTERIAL BLOOD SPECIMENOrdering Facility: [facility] Address: [address] [place] [address] Performed By: #### A LLMG ####[facility] [id number] [place] [address] [place] Calcium.ionized adjusted to pH 7.4 (BldA) [Moles/Vol] 1.22 mmol/L Normal 1.08-1.30 [facility] Comment on above: Order Comment: Speci men Type: ARTERIAL BLOOD SPECIMENOrdering Facility: [facility] Address: [address] [place] [address] Performed By: #### A LLMG ####[facility]CLIA [id number] [place] [address] [place] Carboxyhemoglobin (BldA) [Mass fraction] 1.5 % Normal 0.0-2.0 [facility] Comment on above: Order Comment: Speci men Type: ARTERIAL BLOOD SPECIMENOrdering Facility: [facility] Address: [address] [place] [address] Result Comment: Carb oxyhemoglobin Reference Range for Smokers: 2.0-8.0% Performed By: #### A LLMG ####[facility] [id number] [place] [address] [place] CO2 (Bld) [Partial pressure] 40 mm Hg Normal 36-46 [facility] Comment on above: Order Comment: Speci men Type: ARTERIAL BLOOD SPECIMENOrdering Facility: [facility] Address: [address] [place] [address] Performed By: #### A LLMG ####[facility] [id number] [place] [address] [place] CO2 adjusted to patient's actual temperature (Bld) [Partial pressure] 40 mmHg Normal 36-46 [facility] Comment on above: Order Comment: Speci men Type: ARTERIAL BLOOD SPECIMENOrdering Facility: [facility] Address: [address] [place] [address] Performed By: #### A LLMG ####[facility] [id number] [place] [address] [place] Glucose [Mass/Vol] 142 mg/dL High 60-105 [facility] Comment on above: Order Comment: Speci men Type: ARTERIAL BLOOD SPECIMENOrdering Facility: [facility] Address: [address] [place] [address] Performed By: #### A LLMG ####[facility] [id number] [place] [address] [place] HCO3 (Bld) [Moles/Vol] 26 mmol/L Normal 22-26 [facility] Comment on above: Order Comment: Speci men Type: ARTERIAL BLOOD SPECIMENOrdering Facility: [facility] Address: [address] [place] [address] Performed By: #### A LLMG ####[facility] [id number] [place] [address] [place] Hematocrit (Bld) [Volume fraction] 37.7 % Low 39.0-51.0 [facility] Comment on above: Order Comment: Speci men Type: ARTERIAL BLOOD SPECIMENOrdering Facility: [facility] Address: [address] [place] [address] Performed By: #### A LLMG ####[facility] [id number] [place] [address] [place] Hemoglobin (Bld) [Mass/Vol] 12.3 g/dL Low 13.0-17.0 [facility] Comment on above: Order Comment: Speci men Type: ARTERIAL BLOOD SPECIMENOrdering Facility: [facility] Address: [address] [place] [address] Performed By: #### A LLMG ####[facility] [id number] [place] [address] [place] Lactate [Moles/Vol] 1.8 mmol/L Normal 0.5-2.2 [facility] Comment on above: Order Comment: Speci men Type: ARTERIAL BLOOD SPECIMENOrdering Facility: [facility] Address: [address] [place] [address] Performed By: #### A LLMG ####[facility] [id number] [place] [address] [place] Magnesium [Moles/Vol] 0.52 mmol/L Normal 0.45-0.60 [facility] Comment on above: Order Comment: Speci men Type: ARTERIAL BLOOD SPECIMENOrdering Facility: [facility] Address: [address] [id number] Performed By: #### A LLMG ####[facility] [id number] [address] [address] [place] Methemoglobin (Bld) [Mass fraction] 0.8 % Normal 0.0-1.5 [facility] Comment on above: Order Comment: Speci men Type: ARTERIAL BLOOD SPECIMENOrdering Facility: [facility] Address: [address] [id number] Performed By: #### A LLMG ####[facility]CLIA [id number] [place] [address] [place] Oxygen (Bld) [Partial pressure] 116 mm Hg High 85-95 [facility] Comment on above: Order Comment: Speci men Type: ARTERIAL BLOOD SPECIMENOrdering Facility: [facility] Address: [address] [id number] Performed By: #### A LLMG ####[facility]CL[facility] [id number] [place] [address] [place] Oxygen adjusted to patient's actual temperature (Bld) [Partial pressure] 116 mmHg High 85-95 [facility] Comment on above: Order Comment: Speci men Type: ARTERIAL BLOOD SPECIMENOrdering Facility: [facility] Address: [address] [id number] Performed By: #### A LLMG ####[facility]CLIA [id number] [place] [id number] [place] Oxyhemoglobin (BldA) [Mass fraction] 97 % Normal 95-98 [facility] Comment on above: Order Comment: Speci men Type: ARTERIAL BLOOD SPECIMENOrdering Facility: [facility] Address: [address] [phone] Performed By: #### A LLMG ####[facility]CL[facility] [id number] [place] [address] [place] pH (Bld) 7.43 [pH] Normal 7.35-7.45 [facility] Comment on above: Order Comment: Speci men Type: ARTERIAL BLOOD SPECIMENOrdering Facility: [facility] Address: [address] [place] [address] Performed By: #### A LLMG ####[facility]CL[facility] [id number] [place] [address] [place] pH adjusted to patient's actual temperature (Bld) 7.43 Normal 7.35-7.45 [facility] Comment on above: Order Comment: Speci men Type: ARTERIAL BLOOD SPECIMENOrdering Facility: [facility] Address: [address] [place] [address] Performed By: #### A LLMG ####[facility]CL[facility] [id number] [place] [address] [place] Potassium [Moles/Vol] 4.1 mmol/L Normal 3.5-5.0 [facility] Comment on above: Order Comment: Speci men Type: ARTERIAL BLOOD SPECIMENOrdering Facility: [facility] Address: [address] [place] [address] Performed By: #### A LLMG ####[facility]CL[facility] [id number] [place] [address] [place] Sodium [Moles/Vol] 137 mmol/L Normal 136-144 [facility] Comment on above: Order Comment: Speci men Type: ARTERIAL BLOOD SPECIMENOrdering Facility: [facility] Address: [address] [place] [address] Performed By: #### A LLMG ####[facility] [id number] [place] [address] [place] BRIEF OP NOTon 08-28-2024 BRIEF OP NOT Normal [facility] Bacteria Spec Anaerobe Culto n 08-28-2024 Bacteria identified Anaer cx Nom (Unsp spec) Negative Normal [facility] Comment on above: Performed By: #### 6 35-3, 6462-6, 43951-7 ####[facility] [id number] [place] [address] [place] Bacteria Wnd Culton 08-28-20 24 Bacteria identified Cx Nom (Wound) CULTURE, WOUND: No growth GRAM STAIN: No organisms seen No Polymorphonuclear Leukocytes Normal [facility] Comment on above: Performed By: #### 6 35-3, 6462-6, 52549-8 ####[facility] [id number] [place] [address] [place] CBC W Auto Differential pane l (Bld)on 08-28-2024 Basophils (Bld) [#/Vol] 0.00 10*3/uL Normal <0.11 [facility] Comment on above: Order Comment: Speci men Type: BLOOD SPECIMENOrdering Facility: [facility] Address: [address] [place] [address] Performed By: #### 5 7021-8 ####[facility]CL[facility] [id number] [place] [address] [place] Basophils/100 WBC (Bld) 0.0 % Normal [facility] Comment on above: Order Comment: Speci men Type: BLOOD SPECIMENOrdering Facility: [facility] Address: [address] [place] [address] Performed By: #### 5 7021-8 ####[facility]CL[facility] [id number] [place] [address] [place] Differential cell count method Nom (Bld) Manual Normal [facility] Comment on above: Order Comment: Speci men Type: BLOOD SPECIMENOrdering Facility: [facility] Address: [address] [place] [address] Performed By: #### 5 7021-8 ####[facility] [id number] [place] [address] [place] Eosinophils (Bld) [#/Vol] 0.00 10*3/uL Normal <0.46 [facility] Comment on above: Order Comment: Speci men Type: BLOOD SPECIMENOrdering Facility: [facility] Address: [address] [place] [address] Performed By: #### 5 7021-8 ####[facility] [id number] [place] [address] [place] Eosinophils/100 WBC (Bld) 0.0 % Normal [facility] Comment on above: Order Comment: Speci men Type: BLOOD SPECIMENOrdering Facility: [facility] Address: [address] [place] [address] Performed By: #### 5 7021-8 ####[facility]CLIA [id number] [place] [address] [place] Erythrocyte distribution width (RBC) [Ratio] 12.7 % Normal 11.5-15.0 [facility] Comment on above: Order Comment: Speci men Type: BLOOD SPECIMENOrdering Facility: [facility] Address: [address] [place] [address] Performed By: #### 5 7021-8 ####[facility]CLIA [id number] [place] [address] [place] Hematocrit (Bld) [Volume fraction] 25.2 % Low 39.0-51.0 [facility] Comment on above: Order Comment: Speci men Type: BLOOD SPECIMENOrdering Facility: [facility] Address: [address] [place] [address] Performed By: #### 5 7021-8 ####[facility]CLIA [id number] [place] [address] [place] Hemoglobin (Bld) [Mass/Vol] 8.4 g/dL Low 13.0-17.0 [facility] Comment on above: Order Comment: Speci men Type: BLOOD SPECIMENOrdering Facility: [facility] Address: [address] [place] [address] Performed By: #### 5 7021-8 ####[facility]CLIA [id number] [place] [address] [place] Lymphocytes (Bld) [#/Vol] 0.27 10*3/uL Low 1.00-4.00 [facility] Comment on above: Order Comment: Speci men Type: BLOOD SPECIMENOrdering Facility: [facility] Address: [address] [place] [address] Performed By: #### 5 7021-8 ####[facility]CLIA [id number] [place] [address] [place] Lymphocytes/100 WBC (Bld) 1.7 % Normal [facility] Comment on above: Order Comment: Speci men Type: BLOOD SPECIMENOrdering Facility: [facility] Address: [address] [place] [address] Performed By: #### 5 7021-8 ####[facility]CLIA [id number] [place] [address] [place] MCH (RBC) [Entitic mass] 29.0 pg Normal 26.0-34.0 [facility] Comment on above: Order Comment: Speci men Type: BLOOD SPECIMENOrdering Facility: [facility] Address: [address] [place] [address] Performed By: #### 5 7021-8 ####[facility]CL[facility] [id number] [place] [address] [place] MCHC (RBC) [Mass/Vol] 33.3 g/dL Normal 30.5-36.0 [facility] Comment on above: Order Comment: Speci men Type: BLOOD SPECIMENOrdering Facility: [facility] Address: [address] [place] [address] Performed By: #### 5 7021-8 ####[facility]CLIA [id number] [place] [address] [place] MCV (RBC) [Entitic vol] 86.9 fL Normal 80.0-100.0 [facility] Comment on above: Order Comment: Speci men Type: BLOOD SPECIMENOrdering Facility: [facility] Address: [address] [place] [address] Performed By: #### 5 7021-8 ####[facility]CLIA [id number] [place] [address] [place] Monocytes (Bld) [#/Vol] 1.34 10*3/uL High <0.87 [facility] Comment on above: Order Comment: Speci men Type: BLOOD SPECIMENOrdering Facility: [facility] Address: [address] [place] [address] Performed By: #### 5 7021-8 ####[facility] LABIA [id number] [place] [address] [place] Monocytes/100 WBC (Bld) 8.5 % Normal [facility] Comment on above: Order Comment: Speci men Type: BLOOD SPECIMENOrdering Facility: [facility] Address: [address] [place] [address] Performed By: #### 5 7021-8 ####[facility] LABIA [id number] [place] [address] [place] Neutrophils (Bld) [#/Vol] 14.14 10*3/uL High 1.45-7.50 [facility] Comment on above: Order Comment: Speci men Type: BLOOD SPECIMENOrdering Facility: [facility] Address: [address] [place] [address] Performed By: #### 5 7021-8 ####[facility]CLIA [id number] [place] [address] [place] Neutrophils/100 WBC (Bld) 89.8 % Normal [facility] Comment on above: Order Comment: Speci men Type: BLOOD SPECIMENOrdering Facility: [facility] Address: [address] [place] [address] Performed By: #### 5 7021-8 ####[facility] LABIA [id number] [place] [address] [place] Nucleated RBC (Bld) [#/Vol] 10*3/uL Normal <0.01 [facility] Comment on above: Order Comment: Speci men Type: BLOOD SPECIMENOrdering Facility: [facility] Address: [address] [place] [address] Performed By: #### 5 7021-8 ####[facility] LABIA [id number] [place] [address] [place] Nucleated RBC/100 WBC (Bld) [Ratio] 0.0 /100 WBC Normal [facility] Comment on above: Order Comment: Speci men Type: BLOOD SPECIMENOrdering Facility: [facility] Address: [address] [place] [address] Performed By: #### 5 7021-8 ####[facility] LABIA [id number] [place] [address] [place] Platelet mean volume (Bld) [Entitic vol] 9.7 fL Normal 9.0-12.7 [facility] Comment on above: Order Comment: Speci men Type: BLOOD SPECIMENOrdering Facility: [facility] Address: [address] [place] [address] Performed By: #### 5 7021-8 ####[facility] LABIA [id number] [place] [address] [place] Platelets (Bld) [#/Vol] 218 10*3/uL Normal 150-400 [facility] Comment on above: Order Comment: Speci men Type: BLOOD SPECIMENOrdering Facility: [facility] Address: [address] [place] [address] Performed By: #### 5 7021-8 ####[facility]CLIA [id number] [address] [address] [place] Platelets Estimate (Bld) [#/Vol] Adequate Normal [facility] Comment on above: Order Comment: Speci men Type: BLOOD SPECIMENOrdering Facility: [facility] Address: [address] [place] [address] Performed By: #### 5 7021-8 ####[facility]CLIA [id number] [place] [address] [place] Polychromasia LM Ql (Bld) Slight Normal [facility] Comment on above: Order Comment: Speci men Type: BLOOD SPECIMENOrdering Facility: [facility] Address: [address] [place] [address] Performed By: #### 5 7021-8 ####[facility]CLIA [id number] [place] [address] [place] RBC (Bld) [#/Vol] 2.90 10*6/uL Low 4.20-6.00 [facility] Comment on above: Order Comment: Speci men Type: BLOOD SPECIMENOrdering Facility: [facility] Address: [address] [place] [address] Performed By: #### 5 7021-8 ####[facility]CLIA [id number] [place] [address] [place] RED CELL MORPH Reviewed: unremarkable Normal [facility] Comment on above: Order Comment: Speci men Type: BLOOD SPECIMENOrdering Facility: [facility] Address: [address] [place] [address] Performed By: #### 5 7021-8 ####[facility]CLIA [id number] [place] [address] [place] WBC (Bld) [#/Vol] 15.75 10*3/uL High 3.70-11.00 [facility] Comment on above: Order Comment: Speci men Type: BLOOD SPECIMENOrdering Facility: [facility] Address: [address] [place] [address] Performed By: #### 5 7021-8 ####[facility]CLIA [id number] [address] [address] [place] Comprehensive metabolic 2000 panelon 08-28-2024 Albumin [Mass/Vol] 4.2 g/dL Normal 3.9-4.9 [facility] Comment on above: Order Comment: Speci men Type: BLOOD SPECIMENOrdering Facility: [facility] Address: [address] [place] [address] Performed By: #### 3 040-3, 2777-1, 00056-5, 70479-4 ####[facility] LABIA [id number] [place] [address] [place] ALP [Catalytic activity/Vol] 56 U/L Normal 38-113 [facility] Comment on above: Order Comment: Speci men Type: BLOOD SPECIMENOrdering Facility: [facility] Address: [address] [place] [address] Performed By: #### 3 040-3, 2777-1, 10289-0, 80242-4 ####[facility] LABIA [id number] [place] [address] [place] ALT [Catalytic activity/Vol] 113 U/L High 10-54 [facility] Comment on above: Order Comment: Speci men Type: BLOOD SPECIMENOrdering Facility: [facility] Address: [address] [place] [address] Performed By: #### 3 040-3, 2777-1, 27011-1, 88884-8 ####[facility] LABCLIA [id number] [place] [address] [place] Anion gap [Moles/Vol] 13 mmol/L Normal 8-15 [facility] Comment on above: Order Comment: Speci men Type: BLOOD SPECIMENOrdering Facility: [facility] Address: [address] [place] [address] Performed By: #### 3 040-3, 2777-1, 12117-2, ####[facility]CLIA [id number] [place] [address] [place] AST [Catalytic activity/Vol] 123 U/L High 14-40 [facility] Comment on above: Order Comment: Speci men Type: BLOOD SPECIMENOrdering Facility: [facility] Address: [address] [place] [address] Performed By: #### 3 040-3, 2777-1, 38043-4, ####[facility]CLIA [id number] [place] [address] [place] Bilirubin [Mass/Vol] 1.0 mg/dL Normal 0.2-1.3 [facility] Comment on above: Order Comment: Speci men Type: BLOOD SPECIMENOrdering Facility: [facility] Address: [address] [place] [address] Performed By: #### 3 040-3, 2777-1, 94182-2, ####[facility]CLIA [id number] [place] [address] [place] Calcium [Mass/Vol] 8.0 mg/dL Low 8.5-10.2 [facility] Comment on above: Order Comment: Speci men Type: BLOOD SPECIMENOrdering Facility: [facility] Address: [address] [place] [address] Performed By: #### 3 040-3, 2777-1, 07378-3, ####[facility]CLIA [id number] [place] [address] [place] Chloride [Moles/Vol] 103 mmol/L Normal 98-107 [facility] Comment on above: Order Comment: Speci men Type: BLOOD SPECIMENOrdering Facility: [facility] Address: [address] [place], [place] [address] Performed By: #### 3 040-3, 2777-1, 15796-4, ####[facility]CLIA [id number] [address] [address] [place] CO2 [Moles/Vol] 23 mmol/L Normal 22-30 [facility] Comment on above: Order Comment: Speci men Type: BLOOD SPECIMENOrdering Facility: [facility] Address: [address] [place], [place] [address] Performed By: #### 3 040-3, 2777-1, 99463-9, ####[facility]CLIA [id number] [address] [address] [place] Creatinine [Mass/Vol] 0.98 mg/dL Normal 0.73-1.22 [facility] Comment on above: Order Comment: Speci men Type: BLOOD SPECIMENOrdering Facility: [facility] Address: [address] [place] [address] Performed By: #### 3 040-3, 2777-1, 01475-6, ####[facility] LABIA [id number] [address] [address] [place] Creatinine and Glomerular filtration rate.predicted panel (S/P/Bld) 92 mL/min/1.73m??? Normal >=60 [facility] Comment on above: Order Comment: Speci men Type: BLOOD SPECIMENOrdering Facility: [facility] Address: [address] [place] [address] Result Comment: Marisa mated Glomerular Filtration Rate [...] actual GFR. Performed By: #### 3 040-3, 2777-1, 97209-5, 23096-1 ####[facility]CLIA [id number] [place] [address] [place] Glucose [Mass/Vol] 256 mg/dL High 74-99 [facility] Comment on above: Order Comment: Speci men Type: BLOOD SPECIMENOrdering Facility: [facility] Address: [address] [place] [address] Result Comment: The [place] [employer] (ADA) provides guidance for cutoff [...] Standards of Medical Care in Diabetes 2016, [place] [employer]. Diabetes Care. 2016.39(Suppl 1). Performed By: #### 3 040-3, 2777-1, 70060-4, 66140-7 ####[facility]CLIA [id number] [place] [address] [place] Potassium [Moles/Vol] 4.6 mmol/L Normal 3.7-5.1 [facility] Comment on above: Order Comment: Speci men Type: BLOOD SPECIMENOrdering Facility: [facility] Address: [address] [place] [address] Performed By: #### 3 040-3, 2777-1, 54553-9, 29734-3 ####[facility]CLIA [id number] [place] [address] [place] Protein [Mass/Vol] 5.4 g/dL Low 6.3-8.0 [facility] Comment on above: Order Comment: Speci men Type: BLOOD SPECIMENOrdering Facility: [facility] Address: [address] [place], [place] [address] Performed By: #### 3 040-3, 2777-1, 98808-9, ####[facility]CLIA [id number] [address] [address] [place] Sodium [Moles/Vol] 139 mmol/L Normal 136-144 [facility] Comment on above: Order Comment: Speci men Type: BLOOD SPECIMENOrdering Facility: [facility] Address: [address] [place] [address] Performed By: #### 3 040-3, 2777-1, 78229-8, ####[facility]CLIA [id number] [place] [address] [place] Urea nitrogen [Mass/Vol] 17 mg/dL Normal 9-24 [facility] Comment on above: Order Comment: Speci men Type: BLOOD SPECIMENOrdering Facility: [facility] Address: [address] [place] [address] Performed By: #### 3 040-3, 2777-1, 54401-9, ####[facility] LABCLIA [id number] [place] [address] [place] Lipase SerPl-cCncon 08-28-20 24 Lipase [Catalytic activity/Vol] 19 U/L Normal 16-61 [facility] Comment on above: Order Comment: Speci men Type: BLOOD SPECIMENOrdering Facility: [facility] Address: [address] [place], [place] [address] Performed By: #### 3 040-3, 2777-1, 66919-0, ####[facility]CLIA [id number] [address] [address] [place] Magnesium SerPl-mCncon 08-28 Magnesium [Mass/Vol] 1.7 mg/dL Normal 1.7-2.3 [facility] Comment on above: Order Comment: Theo narvaez Type: BLOOD SPECIMENOrdering Facility: [facility] Address: [address] [place] [address] Performed By: #### 3 040-3, 2777-1, 28288-9, 42992-2 ####[facility]CLIA [id number] [address] STATES OF [facility] Microorganism Spec Culton Microorganism identified Cx Nom (Unsp spec) CULTURE, FUNGAL: No Fungus isolated after 28 days FUNGAL SMEAR: No fungus seen Normal [facility] Comment on above: Performed By: #### 6 35-3, 6462-6, 42046-2 ####[facility]CL[facility] [id number] [address] [place] OPERATIVE NOon 08-28-2024 OPERATIVE NO Normal [facility] PT panel Coag (PPP)on 2023 INR Coag (PPP) [Relative time] 1.1 {INR} Normal 0.9-1.3 [facility] Comment on above: Order Comment: Theo narvaez Type: BLOOD SPECIMENOrdering Facility: [facility] Address: [address] [place] [address] Result Comment: Carmita min K Antagonist (VKA) Therapeutic Range: INR 2 to 3 (Target INR of 2.5)Note: For patients treated with VKA drugs, such as warfarin, the [place] [employer] 2012 Guideline recommends [...] al. Chest 2012, 141:7S-47SNishimura RA, et al. [facility] 2017, 70: 252-289 Performed By: #### 1 4979-9, 05524-1 ####[facility] [id number] [place] [address] [place] PT Coag (PPP) [Time] 11.9 s Normal 9.7-13.0 [facility] Comment on above: Order Comment: Speci men Type: BLOOD SPECIMENOrdering Facility: [facility] Address: [address] [place] [address] Performed By: #### 1 4979-9, 01453-1 ####[facility] [id number] [place] [address] [place] Phosphate SerPl-mCncon 08-28 Phosphate [Mass/Vol] 4.1 mg/dL Normal 2.7-4.8 [facility] Comment on above: Order Comment: Speci men Type: BLOOD SPECIMENOrdering Facility: [facility] Address: [address] [place] [address] Performed By: #### 3 040-3, 2777-1, 21260-7, 02775-7 ####[facility] [id number] [place] [address] [place] STAPHYLOCOCCUS AUREUS AND MR SA SCREEN, PCR, NASALon 08-28-2024 S. aureus and MRSA panel NAZ+probe (Nose) Not detected Normal Not Detected [facility] Comment on above: Order Comment: Speci men Type: SWABOrdering Facility: [facility] Address: [address] [place] [address] Performed By: #### S APCR ####[facility] LABIA [id number] [place] [address] [place] SURGICAL PATHOLOGYon 024 CASE REPORT Normal [facility] Comment on above: Order Comment: Speci men Type: TISSUE SPECIMENOrdering Facility: [facility] Address: [address] [place] [address] Result Comment: Surg [facility] Pathology Report Case: [id number] Provider: Jesus Jacobson MD Collected: 08/28/2024 05:31 PMOrdering Location: Admitting Received: 08/29/2024 03:53 PMPathologist: Lilia Hendricks MDSpecimens: A) - Lymph Node (Specify Site in Comments), retro portal lymph node B) - Pancreaticoduodenectomy (Whipple Procedure) Performed By: #### S ####[facility] LABCLIA [id number] [address] [place] CLINICAL HISTORY Normal [facility] Comment on above: Order Comment: Speci men Type: TISSUE SPECIMENOrdering Facility: [facility] Address: [address] [place] [address] Result Comment: Pre- op diagnosis:IPMN (intraductal papillary mucinous neoplasm) [D49.0] Performed By: #### S ####[facility]IA [id number] [address] DIAGNOSIS COMMENT Normal [facility] Comment on above: Order Comment: Speci men Type: TISSUE SPECIMENOrdering Facility: [facility] Address: [address] [place] [address] Result Comment: -Int raductal papillary mucinous neoplasm (3.9 cm), intestinal type, involving the distal main pancreatic duct and and branch ducts, with focal high-grade dysplasia-No invasive tumor identified in the entirely submitted lesion-Background pancreas with chronic pancreatitis and lobulocentric atrophy-The margins are negative for tumor-Spleen with mild reactive changes-25 benign lymph nodes Performed By: #### S ####[facility] LABIA [id number] [address] FINAL DIAGNOSIS Normal [facility] Comment on above: Order Comment: Speci men Type: TISSUE SPECIMENOrdering Facility: [facility] Address: [address] [place] [address] Result Comment: A. R etroportal lymph node, resection-1 benign lymph nodeB. Pancreas, duodenum, bile duct, pancreatoduodenectomy-Intraductal papillary mucinous neoplasm (3.9 cm), intestinal type, with focal high-grade dysplasia-The margins are negative for tumor-25 benign lymph nodes-See comment Performed By: #### S ####[facility] LABCLIA [id number] [address] OF [facility] FINAL PERFORMING LAB Normal [facility] Comment on above: Order Comment: Speci men Type: TISSUE SPECIMENOrdering Facility: [facility] Address: [address] [place] [address] Result Comment: Diag nostic interpretation performed at [facility], [address] [place] [address] CLIA# [id number] Director: Yakov Gurrola M.D. Performed By: #### S ####[facility]IA [id number] [address] GROSS DESCRIPTION Normal [facility] Comment on above: Order Comment: Speci men Type: TISSUE SPECIMENOrdering Facility: [facility] Address: [address] [place] [address] Result Comment: A. L ymph Node (Specify Site in Comments)Received in formalin designated retroportal lymph node is a clemente-purple lymph node with attached yellow fatty tissue measuring 2.8 x 0.8 x 0.4 cm. The lymph node is bisected and totally submitted in 1 cassette.Gross examination performed at [facility], [address] [place] [address] CLIA# [id number] August 30, 2024 5:11 PMB. Pancreaticoduodenectomy (Whipple [...] follows: - Common bile duct, outer surface: [place] - Anterior outer surface of pancreas: Red [...] red and soft. Malpighian corpuscles are not prominent.Stonecutter Assistant sections are submitted as follows:B1: Common bile duct margin, en faceB2: Proximal and distal intestinal resection margins, perpendicular, sales representative girls[employer] apparel sections - Lesion submitted from distal to proximal in cassettes [id number]-X0: Lesion and anterior peripancreatic soft tissue, totally submittedB7-B10: Lesion and posterior peripancreatic soft tissue, totally iwyfykiysP46: Lesion, remaining, totally yfyzuoojbN60: Dilated main pancreatic duct at the body, sales representative girls[employer] xapanhuV85-F65: Uncinate process, perpendicular, totally bzxblgdusH72: Dilated main pancreatic duct at the head,, bile duct, and duodenum, sales representative girls[employer] pmgubuuZ06-A16: Vascular groove, perpendicular, totally ijriepkjdS23: Spleen, sales representative girls[employer] njfisyopA59-N90: 1 possible lymph node per cassette, bisected and totally ufyiydqjwO32: 2 possible lymph nodes, totally gjntkjtouM45: 5 possible lymph nodes, totally fjrhviainL53-Q14: Peripancreatic adipose tissue for microscopic lymph node identification, totally submittedGross examination performed at [facility], [address] [place], [place] [address]RTM 09/01/24 11:46 AM Performed By: #### S ####[facility]IA [id number] [place] [address] [place] XR CHEST 1V FRONTAL PORTon 1 10-28-2023 XR CHEST 1V FRONTAL PORT Normal [facility] aPTT PPPon 08-28-2024 aPTT Coag (PPP) [Time] 21.7 s Low 23.0-32.4 [facility] Comment on above: Order Comment: Speci men Type: BLOOD SPECIMENOrdering Facility: [facility] Address: [address] [place] [address] Performed By: #### 1 4979-9, 12397-3 ####[facility] [id number] [place] [address] [place] CBC W Auto Differential pane l (Bld)on 08-22-2024 Basophils (Bld) [#/Vol] 0.04 10*3/uL Normal <0.11 [facility] Comment on above: Order Comment: Speci men Type: BLOOD SPECIMENOrdering Facility: [facility] Address: [address] [place] [address] Performed By: #### 5 7021-8 ####[facility]IA [id number] [place] [address] [place] Basophils/100 WBC (Bld) 0.6 % Normal [facility] Comment on above: Order Comment: Speci men Type: BLOOD SPECIMENOrdering Facility: [facility] Address: [address] [place] [address] Performed By: #### 5 7021-8 ####[facility] LABCLIA [id number] [place] [address] [place] Differential cell count method Nom (Bld) Auto Normal [facility] Comment on above: Order Comment: Speci men Type: BLOOD SPECIMENOrdering Facility: [facility] Address: [address] [place] [address] Performed By: #### 5 7021-8 ####[facility] LABCLIA [id number] [place] [address] [place] Eosinophils (Bld) [#/Vol] 0.04 10*3/uL Normal <0.46 [facility] Comment on above: Order Comment: Speci men Type: BLOOD SPECIMENOrdering Facility: [facility] Address: [address] [place] [address] Performed By: #### 5 7021-8 ####[facility] LABCLIA [id number] [place] [address] [place] Eosinophils/100 WBC (Bld) 0.6 % Normal [facility] Comment on above: Order Comment: Speci men Type: BLOOD SPECIMENOrdering Facility: [facility] Address: [address] [place] [address] Performed By: #### 5 7021-8 ####[facility] LABCLIA [id number] [place] [address] [place] Erythrocyte distribution width (RBC) [Ratio] 12.5 % Normal 11.5-15.0 [facility] Comment on above: Order Comment: Speci men Type: BLOOD SPECIMENOrdering Facility: [facility] Address: [address] [place] [address] Performed By: #### 5 7021-8 ####[facility] LABCLIA [id number] [place] [address] [place] Hematocrit (Bld) [Volume fraction] 42.3 % Normal 39.0-51.0 [facility] Comment on above: Order Comment: Speci men Type: BLOOD SPECIMENOrdering Facility: [facility] Address: [address] [place] [address] Performed By: #### 5 7021-8 ####[facility] LABCLIA [id number] [place] [address] [place] Hemoglobin (Bld) [Mass/Vol] 13.6 g/dL Normal 13.0-17.0 [facility] Comment on above: Order Comment: Speci men Type: BLOOD SPECIMENOrdering Facility: [facility] Address: [address] [place] [address] Performed By: #### 5 7021-8 ####[facility]IA [id number] [place] [address] [place] Immature granulocytes (Bld) [#/Vol] 0.03 10*3/uL Normal <0.10 [facility] Comment on above: Order Comment: Speci men Type: BLOOD SPECIMENOrdering Facility: [facility] Address: [address] [place] [address] Performed By: #### 5 7021-8 ####[facility]IA [id number] [place] [address] [place] Immature granulocytes/100 WBC (Bld) 0.5 % Normal [facility] Comment on above: Order Comment: Speci men Type: BLOOD SPECIMENOrdering Facility: [facility] Address: [address] [place] [address] Performed By: #### 5 7021-8 ####[facility] LABCLIA [id number] [place] [address] [place] Lymphocytes (Bld) [#/Vol] 1.67 10*3/uL Normal 1.00-4.00 [facility] Comment on above: Order Comment: Speci men Type: BLOOD SPECIMENOrdering Facility: [facility] Address: [address] [place] [address] Performed By: #### 5 7021-8 ####[facility]IA [id number] [place] [address] [place] Lymphocytes/100 WBC (Bld) 25.6 % Normal [facility] Comment on above: Order Comment: Speci men Type: BLOOD SPECIMENOrdering Facility: [facility] Address: [address] [place] [address] Performed By: #### 5 7021-8 ####[facility] [id number] [place] [address] [place] MCH (RBC) [Entitic mass] 28.6 pg Normal 26.0-34.0 [facility] Comment on above: Order Comment: Speci men Type: BLOOD SPECIMENOrdering Facility: [facility] Address: [address] [place] [address] Performed By: #### 5 7021-8 ####[facility] [id number] [place] [address] [place] MCHC (RBC) [Mass/Vol] 32.2 g/dL Normal 30.5-36.0 [facility] Comment on above: Order Comment: Speci men Type: BLOOD SPECIMENOrdering Facility: [facility] Address: [address] [place] [address] Performed By: #### 5 7021-8 ####[facility]FF[facility] [id number] [place] [address] [place] MCV (RBC) [Entitic vol] 89.1 fL Normal 80.0-100.0 [facility] Comment on above: Order Comment: Speci men Type: BLOOD SPECIMENOrdering Facility: [facility] Address: [address] [place] [address] Performed By: #### 5 7021-8 ####[facility] LABCLIA [id number] [facility] [place] [address] [place] Monocytes (Bld) [#/Vol] 0.49 10*3/uL Normal <0.87 [facility] Comment on above: Order Comment: Speci men Type: BLOOD SPECIMENOrdering Facility: [facility] Address: [address] [place] [address] Performed By: #### 5 7021-8 ####[facility] LABCLIA [id number] [place] [address] [place] Monocytes/100 WBC (Bld) 7.5 % Normal [facility] Comment on above: Order Comment: Speci men Type: BLOOD SPECIMENOrdering Facility: [facility] Address: [address] [place] [address] Performed By: #### 5 7021-8 ####[facility] LABCLIA [id number] [place] [address] [place] Neutrophils (Bld) [#/Vol] 4.25 10*3/uL Normal 1.45-7.50 [facility] Comment on above: Order Comment: Speci men Type: BLOOD SPECIMENOrdering Facility: [facility] Address: [address] [place] [address] Performed By: #### 5 7021-8 ####[facility] LABCLIA [id number] [place] [address] [place] Neutrophils/100 WBC (Bld) 65.2 % Normal [facility] Comment on above: Order Comment: Speci men Type: BLOOD SPECIMENOrdering Facility: [facility] Address: [address] [place] [address] Performed By: #### 5 7021-8 ####[facility] LABCLIA [id number] [place] [address] [place] Nucleated RBC (Bld) [#/Vol] 10*3/uL Normal <0.01 [facility] Comment on above: Order Comment: Speci men Type: BLOOD SPECIMENOrdering Facility: [facility] Address: [address] [place] [address] Performed By: #### 5 7021-8 ####[facility]IA [id number] [place] [address] [place] Nucleated RBC/100 WBC (Bld) [Ratio] 0.0 /100 WBC Normal [facility] Comment on above: Order Comment: Speci men Type: BLOOD SPECIMENOrdering Facility: [facility] Address: [address] [place] [address] Performed By: #### 5 7021-8 ####[facility]IA [id number] [place] [address] [place] Platelet mean volume (Bld) [Entitic vol] 9.3 fL Normal 9.0-12.7 [facility] Comment on above: Order Comment: Speci men Type: BLOOD SPECIMENOrdering Facility: [facility] Address: [address] [place] [address] Performed By: #### 5 7021-8 ####[facility]IA [id number] [place] [address] [place] Platelets (Bld) [#/Vol] 245 10*3/uL Normal 150-400 [facility] Comment on above: Order Comment: Speci men Type: BLOOD SPECIMENOrdering Facility: [facility] Address: [address] [place] [address] Performed By: #### 5 7021-8 ####[facility]IA [id number] [place] [address] [place] RBC (Bld) [#/Vol] 4.75 10*6/uL Normal 4.20-6.00 [facility] Comment on above: Order Comment: Speci men Type: BLOOD SPECIMENOrdering Facility: [facility] Address: [address] [place] [address] Performed By: #### 5 7021-8 ####[facility] LABCLIA [id number] [place] [address] [place] WBC (Bld) [#/Vol] 6.52 10*3/uL Normal 3.70-11.00 [facility] Comment on above: Order Comment: Speci men Type: BLOOD SPECIMENOrdering Facility: [facility] Address: [address] [place] [address] Performed By: #### 5 7021-8 ####[facility] LABCLIA [id number] [place] [address] [place] CNNURSEon 08-22-2024 CNNURSE Normal [facility] CNOVon 08-22-2024 CNOV Normal [facility] CONFIRM BLOOD TYPEon 024 ABO O Normal [facility] Comment on above: Order Comment: Speci men Type: BLOOD SPECIMENOrdering Facility: [facility] Address: [address] [place] [address] Performed By: #### C ONABO ####[facility] BLOOD BANKIA [id number] [place] [address] [place] Rh Nom (Bld) Positive Normal [facility] Comment on above: Order Comment: Speci men Type: BLOOD SPECIMENOrdering Facility: [facility] Address: [address] [place] [address] Performed By: #### C ONABO ####[facility] BLOOD BANKIA [id number] [place] [address] [place] Comprehensive metabolic 2000 panelon 08-22-2024 Albumin [Mass/Vol] 4.7 g/dL Normal 3.9-4.9 [facility] Comment on above: Order Comment: Speci men Type: BLOOD SPECIMENOrdering Facility: [facility] Address: [address] [place] [address] Performed By: #### 2 4323-8 ####[facility] LABCLIA [id number] [place] [address] [place] ALP [Catalytic activity/Vol] 108 U/L Normal 38-113 [facility] Comment on above: Order Comment: Speci men Type: BLOOD SPECIMENOrdering Facility: [facility] Address: [address] [place] [address] Performed By: #### 2 4323-8 ####[facility]CLIA [id number] [place] [address] [place] ALT [Catalytic activity/Vol] 35 U/L Normal 10-54 [facility] Comment on above: Order Comment: Speci men Type: BLOOD SPECIMENOrdering Facility: [facility] Address: [address] [place] [address] Performed By: #### 2 4323-8 ####[facility] LABCLIA [id number] [place] [address] [place] Anion gap [Moles/Vol] 14 mmol/L Normal 8-15 [facility] Comment on above: Order Comment: Speci men Type: BLOOD SPECIMENOrdering Facility: [facility] Address: [address] [place] [address] Performed By: #### 2 4323-8 ####[facility] LABCLIA [id number] [place] [address] [place] AST [Catalytic activity/Vol] 31 U/L Normal 14-40 [facility] Comment on above: Order Comment: Speci men Type: BLOOD SPECIMENOrdering Facility: [facility] Address: [address] [place] [address] Performed By: #### 2 4323-8 ####[facility] LABCLIA [id number] [place] [id number] [place] Bilirubin [Mass/Vol] 0.2 mg/dL Normal 0.2-1.3 [facility] Comment on above: Order Comment: Speci men Type: BLOOD SPECIMENOrdering Facility: [facility] Address: [address] [place], [place] [address] Performed By: #### 2 4323-8 ####[facility] LABCLIA [id number] [address] [address] [place] Calcium [Mass/Vol] 9.9 mg/dL Normal 8.5-10.2 [facility] Comment on above: Order Comment: Speci men Type: BLOOD SPECIMENOrdering Facility: [facility] Address: [address] [place] [address] Performed By: #### 2 4323-8 ####[facility] LABCLIA [id number] [place] [address] [place] Chloride [Moles/Vol] 103 mmol/L Normal 98-107 [facility] Comment on above: Order Comment: Speci men Type: BLOOD SPECIMENOrdering Facility: [facility] Address: [address] [place], [place] [address] Performed By: #### 2 4323-8 ####[facility] LABCLIA [id number] [place] [address] [place] CO2 [Moles/Vol] 26 mmol/L Normal 22-30 [facility] Comment on above: Order Comment: Speci men Type: BLOOD SPECIMENOrdering Facility: [facility] Address: [address] [place], [place] [address] Performed By: #### 2 4323-8 ####[facility] LABCLIA [id number] [place] [address] [place] Creatinine [Mass/Vol] 1.10 mg/dL Normal 0.73-1.22 [facility] Comment on above: Order Comment: Speci men Type: BLOOD SPECIMENOrdering Facility: [facility] Address: [address] [place], [place] [address] Performed By: #### 2 4323-8 ####[facility] LABCLIA [id number] [place] [address] [place] Creatinine and Glomerular filtration rate.predicted panel (S/P/Bld) 80 mL/min/1.73m??? Normal >=60 [facility] Comment on above: Order Comment: Theo narvaez Type: BLOOD SPECIMENOrdering Facility: [facility] Address: [address] [place] [address] Result Comment: Marisa mated Glomerular Filtration Rate [...] actual GFR. Performed By: #### 2 4323-8 ####[facility] LABIA [id number] [place] [address] [place] Glucose [Mass/Vol] 164 mg/dL High 74-99 [facility] Comment on above: Order Comment: Theo narvaez Type: BLOOD SPECIMENOrdering Facility: [facility] Address: [address] [place] [address] Result Comment: The [place] [employer] (ADA) provides guidance for cutoff [...] Standards of Medical Care in Diabetes 2016, [place] [employer]. Diabetes Care. 2016.39(Suppl 1). Performed By: #### 2 4323-8 ####[facility] LABCLIA [id number] [place] [address] [place] Potassium [Moles/Vol] 4.1 mmol/L Normal 3.7-5.1 [facility] Comment on above: Order Comment: Speci men Type: BLOOD SPECIMENOrdering Facility: [facility] Address: [address] [place] [address] Performed By: #### 2 4323-8 ####[facility] LABCLIA [id number] [place] [address] [place] Protein [Mass/Vol] 7.2 g/dL Normal 6.3-8.0 [facility] Comment on above: Order Comment: Speci men Type: BLOOD SPECIMENOrdering Facility: [facility] Address: [address] [place] [address] Performed By: #### 2 4323-8 ####[facility] LABCLIA [id number] [place] [address] [place] Sodium [Moles/Vol] 143 mmol/L Normal 136-144 [facility] Comment on above: Order Comment: Speci men Type: BLOOD SPECIMENOrdering Facility: [facility] Address: [address] [place] [address] Performed By: #### 2 4323-8 ####[facility] LABCLIA [id number] [place] [address] [place] Urea nitrogen [Mass/Vol] 15 mg/dL Normal 9-24 [facility] Comment on above: Order Comment: Speci men Type: BLOOD SPECIMENOrdering Facility: [facility] [facility] Address: [address] [place] [address] Performed By: #### 2 4323-8 ####[facility] LABCLIA [id number] [place] [address] [place] ECG COMPLETEon 08-22-2024 ECG COMPLETE Normal [facility] HISTORY PHYSICALon HISTORY PHYSICAL Normal [facility] TYPE AND SCREEN,30 DAYon ABO O Normal [facility] Comment on above: Order Comment: Speci men Type: BLOOD SPECIMENOrdering Facility: [facility] Address: [address] [place] [address] Performed By: #### T SCR30 ####CC MAIN BLOOD BANKCLIA [id number] [place] [address] [place] Rh Nom (Bld) Positive Normal [facility] Comment on above: Order Comment: Speci men Type: BLOOD SPECIMENOrdering Facility: [facility] Address: [address] [facility] [place] [address] Performed By: #### T SCR30 ####CC MAIN BLOOD BANKCLIA [id number] [place] [address] [place] XR CHEST 2V FRONTAL/LATon XR CHEST 2V FRONTAL/LAT Normal [facility] XR Chest PA and Lateralon IMPRESSION: No acute disease identified in the lungs or mediastinum. Little interval change since 01/31/2024. Surface Lay Out Technician: PAPITO Transcribe Date/Time: Aug 22 2024 4:29P Dictated by : GEE LITTLEJOHN MD This examination was interpreted and the report reviewed and electronically signed by: GEE LITTLEJOHN MD on Aug 22 2024 4:32PM [facility] DIVISION OF RADIOLOGY * * *Final Report* [...] sternum. DIVISION OF RADIOLOGY Provider, Rabia Stefanie Ortiz - 08/22/2024 * * *Final [...] or mediastinum. Little interval change since 01/31/2024. Surface Lay [facility] Techn[facility] Transcribe Date/Time: Aug 22 2024 4:29P Dictated by : GEE LITTLEJOHN MD This examination was interpreted and the report reviewed and electronically signed by: GEE LITTLEJOHN MD on Aug 22 2024 4:32PM EST [facility] Radiology Study observation (narrative) [facility] XR Chest PA and LateralOrder ed By: Ccf Provider on 08-22-2024 [facility] CT CHEST WO CONTRASTon 08-11 CT CHEST [...] Shayy Granda MD 08/11/24 Final result Normal [facility] 08-08-2024 [facility] Normal [facility] XR RIBS LEFT INCLUDE CHEST ( [...] Lauri Billy MD 08/08/24 Final result Normal [facility] XR Ribs - left Views and [facility] 08-08-2024 No acute abnormaliti es seen in [...] seen in the chest or left ribs [facility] Radiology Study observation (narrative) [facility] XR Ribs - left Views and [place] st PAOrdered By: Lauri Billy on 08-08-2024 [facility] Work Phone: CBC with Auto Differentialon 08-05-2024 Basophils (Bld) [#/Vol] 0.04 10*3/uL [facility] Basophils/100 WBC (Bld) 1 % 0 - 2 % [facility] Eosinophils (Bld) [#/Vol] 0.07 10*3/uL [facility] Eosinophils/100 WBC (Bld) 1 % 1 - 4 % [facility] Erythrocyte distribution width (RBC) [Ratio] 12.4 % 11.8 - 14.4 % [facility] Hematocrit (Bld) [Volume fraction] 41.8 % 40.7 - 50.3 % [facility] Hemoglobin (Bld) [Mass/Vol] 14.1 g/dL 13.0 - 17.0 g/dL [facility] Immature granulocytes (Bld) [#/Vol] 0.03 10*3/uL [facility] Immature granulocytes/100 WBC (Bld) 0 % 0 [facility] Lymphocytes/100 WBC (Bld) 30 % 24 - 43 % [facility] Lymphocytes/100 WBC (Bld) 2.68 % [facility] MCH (RBC) [Entitic mass] 28.8 pg 25.2 - 33.5 pg [facility] MCHC (RBC) [Mass/Vol] 33.7 g/dL 28.4 - 34.8 g/dL [facility] MCV (RBC) [Entitic vol] 85.5 fL 82.6 - 102.9 fL [facility] Monocytes/100 WBC (Bld) 8 % 3 - 12 % [facility] Monocytes/100 WBC (Bld) 0.67 % [facility] Neutrophils/100 WBC (Bld) 60 % 36 - 65 % [facility] Nucleated RBC/100 WBC (Bld) [Ratio] 0.0 % 0.0 per 100 WBC [facility] Platelet mean volume (Bld) [Entitic vol] 9.1 fL 8.1 - 13.5 fL [facility] Platelets (Bld) [#/Vol] 283 10*3/uL [facility] RBC (Bld) [#/Vol] 4.89 10*6/uL 4.21 - 5.7 7 m/uL [facility] Segmented neutrophils/100 WBC (Bld) 5.39 % [facility] WBC other (Bld) [#/Vol] 8.9 [facility] CBC with Diffon 08-05-2024 Abs. Basophil 0.04 k/uL Normal 0.00-0.20 [facility] Comment on above: Performed By: #### C CATE, CDP #### [facility] [address] [place] [address] [employer] Supervisor: Ziggy Hilario MD Abs.Imm.Granulocyte 0.03 k/uL Normal 0.00-0.30 [facility] Comment on above: Performed By: #### C MPX, CDP #### [facility] [address] [place], [place] [id number] [employer] Supervisor: Ziggy Hilario MD Abs.Neutrophil (Seg) 5.39 k/uL Normal 1.50-8.10 [facility] Comment on above: Performed By: #### C MPX, CDP #### [address] [place], [place] [address] [employer] Supervisor: Ziggy Hilario MD Basophils/100 WBC (Bld) 1 % Normal 0-2 [facility] Comment on above: Performed By: #### C MPX, CDP #### [address] [place], [facility] [employer] Supervisor: Ziggy Hilario MD Eosinophils (Bld) [#/Vol] 0.07 10*3/uL Normal 0.00-0.44 [facility] Comment on above: Performed By: #### C MPX, CDP #### [address] [place], [facility] [employer] Supervisor: Ziggy Hilario MD Eosinophils/100 WBC (Bld) 1 % Normal 1-4 [facility] Comment on above: Performed By: #### C MPX, CDP #### [address] [place], [facility] [employer] Supervisor: Ziggy Hilario MD Erythrocyte distribution width (RBC) [Ratio] 12.4 % Normal 11.8-14.4 [facility] Comment on above: Performed By: #### C MPX, CDP #### [address] [place], [place] [id number] [employer] Supervisor: Ziggy Hilario MD Hematocrit (Bld) [Volume fraction] 41.8 % Normal 40.7-50.3 [facility] Comment on above: Performed By: #### C MPX, CDP #### [address] [place] [address] [employer] Supervisor: Ziggy Hilario MD Hemoglobin (Bld) [Mass/Vol] 14.1 g/dL Normal 13.0-17.0 [facility] Comment on above: Performed By: #### C MPX, CDP #### [facility] [address] [place] [address] [employer] Supervisor: Ziggy Hilario MD Immature granulocytes/100 WBC (Bld) 0 % Normal 0 [facility] Comment on above: Performed By: #### C MPX, CDP #### [facility] [address] [place] [address] [employer] Supervisor: Ziggy Hilario MD Lymphocytes (Bld) [#/Vol] 2.68 10*3/uL Normal 1.10-3.70 [facility] Comment on above: Performed By: #### C MPX, CDP #### [address] [place] [address] [employer] Supervisor: Ziggy Hilario MD Lymphocytes/100 WBC (Bld) 30 % Normal 24-43 [facility] Comment on above: Performed By: #### C MPX, CDP #### [address] [place] [address] [employer] Supervisor: Ziggy Hilario MD MCH (RBC) [Entitic mass] 28.8 pg Normal 25.2-33.5 [facility] Comment on above: Performed By: #### C MPX, CDP #### [address] [place] [address] [employer] Supervisor: Ziggy Hilario MD MCHC (RBC) [Mass/Vol] 33.7 g/dL Normal 28.4-34.8 [facility] Comment on above: Performed By: #### C MPX, CDP #### [facility] [address] [place] [address] [employer] Supervisor: Ziggy Hilario MD MCV (RBC) [Entitic vol] 85.5 fL Normal 82.6-102.9 [facility] Comment on above: Performed By: #### C MPX, CDP #### [facility] [address] [place] [address] [employer] Supervisor: Ziggy Hilario MD Monocytes (Bld) [#/Vol] 0.67 10*3/uL Normal 0.10-1.20 [facility] Comment on above: Performed By: #### C MPX, CDP #### [facility] [address] [place], [place] [id number] [employer] Supervisor: Ziggy Hilario MD Monocytes/100 WBC (Bld) 8 % Normal 3-12 [facility] Comment on above: Performed By: #### C MPX, CDP #### [address] [place], [place] [address] [employer] Supervisor: Ziggy Hilario MD Neutrophil (Seg) 60 % Normal 36-65 [facility] Comment on above: Performed By: #### C MPX, CDP #### [address] [place], [place] [address] [employer] Supervisor: Ziggy Hilario MD NRBC Automated 0.0 per 100 WBC Normal 0.0 [facility] Comment on above: Performed By: #### C MPX, CDP #### [address] [place], [place] [id number] [employer] Supervisor: Ziggy Hilario MD Platelet mean volume (Bld) [Entitic vol] 9.1 fL Normal 8.1-13.5 [facility] Comment on above: Performed By: #### C MPX, CDP #### [address] [place] [address] [employer] Supervisor: Ziggy Hilario MD Platelets (Bld) [#/Vol] 283 10*3/uL Normal 138-453 [facility] Comment on above: Performed By: #### C MPX, CDP #### [facility] [address] [place], [place] [id number] [employer] Supervisor: Ziggy Hilario MD RBC (Bld) [#/Vol] 4.89 10*6/uL Normal 4.21-5.77 [facility] Comment on above: Performed By: #### C MPX, CDP #### [facility] [address] [place], [place] [id number] [employer] Supervisor: Ziggy Hilario MD WBC (Bld) [#/Vol] 8.9 10*3/uL Normal 3.5-11.3 [facility] Comment on above: Performed By: #### C MPX, CDP #### [facility] [address] [place] [address] [employer] Supervisor: Ziggy Hilario MD CNPNon 08-05-2024 CNPN Normal [facility] Comp Metabolic Profon 2023 Albumin [Mass/Vol] 4.5 g/dL Normal 3.5-5.2 [facility] Comment on above: Performed By: #### C MPX, CDP #### [facility] [address] [place] [address] [employer] Supervisor: Ziggy Hilario MD Albumin/Glob Ratio 1.8 Normal 1.0-2.5 [facility] Comment on above: Performed By: #### C MPX, CDP #### [facility] [address] [place] [address] [employer] Supervisor: Ziggy Hilario MD Alkaline Phos 100 U/L Normal 40-129 [facility] Comment on above: Performed By: #### C MPX, CDP #### [facility] [address] [place] [address] [employer] Supervisor: Ziggy Hilario MD ALT [Catalytic activity/Vol] 37 U/L Normal 10-50 [facility] Comment on above: Performed By: #### C MPX, CDP #### [facility] [address] [place], [place] [id number] [employer] Supervisor: Ziggy Hilario MD Anion gap [Moles/Vol] 12 mmol/L Normal 9-16 [facility] Comment on above: Performed By: #### C MPX, CDP #### [facility] [address] [place], [place] [id number] [employer] Supervisor: Ziggy Hilario MD AST [Catalytic activity/Vol] 29 U/L Normal 10-50 [facility] Comment on above: Performed By: #### C MPX, CDP #### [facility] [address] [place], [place] [id number] [employer] Supervisor: Ziggy Hilario MD Bilirubin [Mass/Vol] 0.3 mg/dL Normal 0.00-1.20 [facility] Comment on above: Performed By: #### C MPX, CDP #### [facility] [address] [place], [place] [address] [employer] Supervisor: Ziggy Hilario MD BUN/CRE Ratio 9 Normal 9-20 [facility] Comment on above: Performed By: #### C MPX, CDP #### [facility] [address] [place], [place] [address] [employer] Supervisor: Ziggy Hilario MD Calcium [Mass/Vol] 10.1 mg/dL Normal 8.6-10.4 [facility] Comment on above: Performed By: #### C MPX, CDP #### [facility] [address] [place], [place] [id number] [employer] Supervisor: Ziggy Hilario MD Chloride [Moles/Vol] 100 mmol/L Normal 98-107 [facility] Comment on above: Performed By: #### C MPX, CDP #### [facility] [address] [place], [place] [address] [employer] Supervisor: Ziggy Hilario MD CO2 [Moles/Vol] 26 mmol/L Normal 20-31 [facility] Comment on above: Performed By: #### C MPX, CDP #### [facility] [address] [place] [address] [employer] Supervisor: Ziggy Hilario MD Creatinine [Mass/Vol] 1.1 mg/dL Normal 0.70-1.20 [facility] Comment on above: Performed By: #### C MPX, CDP #### [facility] [address] [place] [address] [employer] Supervisor: Ziggy Hilario MD GFR/1.73 sq M.predicted among non-blacks MDRD (S/P/Bld) [Vol rate/Area] 76 mL/min/{1.73_m2} Normal >60 [facility] Comment on above: Result Comment: These results [...] renal tubular secretion. Performed By: #### C MPX, CDP #### [facility] [address] [place] [address] [place] [address] [employer] Supervisor: Ziggy Hilario MD Glucose [Mass/Vol] 100 mg/dL High 74-99 [facility] Comment on above: Performed By: #### C MPX, CDP #### [facility] [address] [place] [address] [employer] Supervisor: Ziggy Hilario MD Potassium [Moles/Vol] 4.1 mmol/L Normal 3.7-5.3 [facility] Comment on above: Performed By: #### C MPX, CDP #### [facility] [address] [place] [address] [employer] Supervisor: Ziggy Hilario MD Protein [Mass/Vol] 7.0 g/dL Normal 6.6-8.7 [facility] Comment on above: Performed By: #### C MPX, CDP #### [facility] [address] [place] [address] [employer] Supervisor: Ziggy Hilario MD Sodium [Moles/Vol] 138 mmol/L Normal 136-145 [facility] Comment on above: Performed By: #### C MPX, CDP #### [facility] [address] [place] [address] [employer] Supervisor: Ziggy Hilario MD Urea nitrogen [Mass/Vol] 10 mg/dL Normal 6-20 [facility] Comment on above: Performed By: #### C MPX, CDP #### [facility] [address] [place] [address] [employer] Supervisor: Ziggy Hilario MD [facility] Metabolic [facility] 08-05-2024 Albumin [Mass/Vol] 4.5 g/dL 3.5 - 5.2 g/dL [facility] Albumin/Globulin [Mass ratio] 1.8 {ratio} 1.0 - 2.5 [facility] ALP [Catalytic activity/Vol] 100 U/L 40 - 129 U/L [facility] ALT [Catalytic activity/Vol] 37 U/L 10 - 50 U/L [facility] Anion gap [Moles/Vol] 12 mmol/L 9 - 16 mmol/L [facility] AST [Catalytic activity/Vol] 29 U/L 10 - 50 U/L [facility] Bilirubin [Mass/Vol] 0.3 mg/dL 0.00 - 1.20 mg/dL [facility] Calcium [Mass/Vol] 10.1 mg/dL 8.6 - 10. 4 mg/dL [facility] Chloride [Moles/Vol] 100 mmol/L 98 - 10 7 mmol/L [facility] CO2 [Moles/Vol] 26 mmol/L 20 - 31 mmol/L [facility] Creatinine [Mass/Vol] 1.1 mg/dL 0.70 - 1.20 mg/dL [facility] Est, Glom Filt Rate 76 - PINF [facility] Comment on above: These results are [...] 100 mg/dL High 74 - 99 mg/dL [facility] Potassium [Moles/Vol] 4.1 mmol/L 3.7 - 5.3 mmol/L [facility] Protein [Mass/Vol] 7.0 g/dL 6.6 - 8.7 g/dL [facility] Sodium [Moles/Vol] 138 mmol/L 136 - 145 mmol/L [facility] Urea nitrogen [Mass/Vol] 10 mg/dL 6 - 20 mg/dL [facility] Urea nitrogen/Creatinine [Mass ratio] 9 mg/mg 9 - 20 [facility] Lactic Acidon 08-05-2024 Lactate (BldV) [Moles/Vol] 1.2 mmol/L 0.5 - 2.2 mmol/L [facility] Lactate [Moles/Vol] 1.2 mmol/L Normal 0.5-2.2 [facility] Comment on above: Performed By: #### U RC #### [facility] [address] [place] [address] [employer] Supervisor: Reno Duron MD [facility] [address] [place] [address] [employer] Supervisor: Ziggy Hilario MD Lipaseon 08-05-2024 Lipase [Catalytic activity/Vol] 101 U/L High 13 - 60 U/L [facility] Lipase [Catalytic activity/Vol] 101 U/L High 13-60 [facility] Comment on above: Performed By: #### C MPX, CDP #### [facility] [address] [place] [address] [employer] Supervisor: Ziggy Hilario MD No Panel Informationon 08-05 Interpretation and review of laboratory results Abnormal [facility] CNPNon 07-30-2024 CNPN Normal [facility] ANES POSTPROC EVALon 024 ANES POSTPROC EVAL Normal [facility] ANES PRE-OPon 07-28-2024 ANES PRE-OP Normal [facility] EGD Study observation Narrat iveon 07-28-2024 [facility] Radiology Study observation (narrative) [facility] GLUCOSE, BLOOD (POC)on 07-28 Glucose [Mass/Vol] 101 mg/dL Abnormal 74 - 99 mg/dL [facility] Comment on above: Location:[place] [address] The Accu-Chek Inform II glucose meter has [...] Interpretation and review of laboratory results Abnormal [facility] Glucose [Mass/Vol] 110 mg/dL Abnormal 74 - 99 mg/dL [facility] Comment on above: Location:[address], [facility] The Accu-Chek Inform II glucose [...] Interpretation and review of laboratory results Abnormal [facility] NURSING PROGon 07-28-2024 NURSING PROG Normal [facility] NURSING PROG Normal [facility] Upper EUSon 07-28-2024 Upper EUS Normal [facility] CNPNon 07-24-2024 CNPN Normal [facility] CNOVon 07-22-2024 CNOV Normal [facility] Cancer Ag19-9 SerPl-aCncon 1 Cancer Ag 19-9 Qn 4.0 [arb'U]/mL Normal <36.0 [facility] Comment on above: Order Comment: Speci men Type: BLOOD SPECIMENOrdering Facility: [facility] Address: [address] [place] [address] Result Comment: [facility] er antigen 19-9 test is used as an aid in monitoring response to treatment or recurrence in patients with established pancreatic, hepatobiliary, or gastrointestinal malignancies. Clinical correlation is required.The CA 19-9 Antigen test was performed using the [employer] Unicel DXI paramagnetic particle chemiluminescent immunoassay method. Results obtained with different assay methods or kits cannot be used interchangeably. Performed By: #### 2 4108-3 ####[facility] [id number] [place] [address] [place] PANC ELASTASE, FECALon 07-22 ELASTASE INTERPRETATION Severe Exocrine Pancreatic Insufficiency Abnormal Normal [facility] Comment on above: Order Comment: Speci men Type: STOOL SPECIMENOrdering Facility: [facility] Address: [address] [place] [address] Performed By: #### P ANCEF ####[facility]CLIA [id number] [place] [address] [place] ELASTASE-1 CONCENTRATION 86 ug/g Low >=200 [facility] Comment on above: Order Comment: Speci men Type: STOOL SPECIMENOrdering Facility: [facility] Address: [address] [place] [address] Result Comment: Inte rpretation:<100 ug/g: Severe Exocrine Pancreatic [id number] ug/g: Mild to Moderate Exocrine Pancreatic Insufficiency>=200 ug/g: Normal Performed By: #### P ANCEF ####[facility]CLIA [id number] [facility] [id number] [address] [place] CNPNon 07-21-2024 CNPN Normal [facility] CNCOon 07-17-2024 CNCO Letter Text Normal [facility] CNPNon 07-17-2024 CNPN Normal [facility] B12/Folate Panelon Cobalamin (Vitamin B12) [Mass/Vol] 979 pg/mL Normal 232-1245 [facility] Comment on above: Performed By: #### C MPX, CDP #### [facility] [address] [place] [address] [employer] Supervisor: Ziggy Hilario MD Folic Acid >20.0 Normal 4.8-24.2 [facility] Comment on above: Performed By: #### C MPX, CDP #### [facility] [address] [place] [address] [employer] Supervisor: Ziggy Hilario MD Iron Binding Cap.on 07-15-20 24 % Fe Saturation 19 % Low 20-55 [facility] Comment on above: Performed By: #### C MPX, CDP #### [facility] [address] [place] [address] [employer] Supervisor: Ziggy Hilario MD Iron [Mass/Vol] 68 ug/dL Normal 61-157 [facility] Comment on above: Performed By: #### C MPX, CDP #### [facility] [address] [place] [address] [employer] Supervisor: Ziggy Hilario MD Total Fe Binding Cap 351 ug/dL Normal 250-450 [facility] Comment on above: Performed By: #### C MPX, CDP #### [facility] [address] [place] [address] [employer] Supervisor: Ziggy Hilario MD Unbound Fe Bind Cap 283 ug/dL Normal 112-347 [facility] Comment on above: Performed By: #### C MPX, CDP #### [facility] [address] [place] [address] [employer] Supervisor: Ziggy Hilario MD PSA, Screeningon 07-15-2024 Prostatic Spec. Ag 1.80 ng/mL Normal 0.00-4.00 [facility] Comment on above: Result Comment: The [employer] ECLIA assay is used. Results obtained with different assay methods cannot be used interchangeably. Performed By: #### C MPX, CDP #### [facility] [address] [place] [address] [place] [address] [employer] Supervisor: Ziggy Hilario MD Vitamin D 25 OHon 07-15-2024 Vitamin D 25 OH >120.0 High 30.0-100.0 [facility] Comment on above: Result Comment: Reference Range: Vitamin D status Range Deficiency <20 ng/mL Mild Deficiency 20-30 ng/mL Sufficiency 30-100 ng/mL Toxicity >100 ng/mL Performed By: #### C MPX, CDP #### [facility] [address] [place] [address] [place] [address] [employer] Supervisor: Ziggy Hilario MD TSH With Reflex Ft4on 2023 TSH Qn 0.85 m[IU]/L [facility] TSH w/reflex to FT4on 2023 Thyroid Stim. Horm. 0.85 uIU/mL Normal 0.27-4.20 [facility] Comment on above: Performed By: #### U RC #### [facility] [address] [place] [address] [employer] Supervisor: Reno Duron MD [facility] [address] [place] [address] [employer] Supervisor: Ziggy Hilario MD 36on 07-08-2024 36 Pt called back [...] to call him with results please advise [facility] 36 Upon learning that p t follows with Dr. Davies for GI care, I called and informed him that Dr. Davies (who ordered the tests) is the one to go over the results with him. Pt indicated understanding and said he would call Dr. Davies immediately. [facility] 36 Patient called back looking for an update. I did inform patient that it does look like we just recently received results. Patient would like the doctor to call him with results from the biopsy. Please advise. [facility] Telephoneon 07-08-2024 Telephone [id number] Thomas Petty 1970 Date Provider Department Center 07/08/2024 CHAI ABDALLA [facility] No family history on file [facility] 36on 07-03-[address] Aponte, This patient is very anxious to speak to you. Can I tell him when he can expect to hear from you? Ana Maria [facility] 36 Pt called in again [...] can be done to help with that [facility] 36 Patient called to go over test results. Patient was informed that test results haven't come in yet and the doctor needs to review them once the results are in. Patient would like a call once the results are in. [facility] 36 Pt called in again i s very concerned and worried about biopsy results and would like to know if they are in . Advised pt they are still in process. Pt would like a call back as soon as possible [facility] 36on 07-02-2024 36 Patient called in, i s requesting a call to go over biopsy results once they've been reviewed. Confirmed patients phone number on file. Normal [facility] Telephoneon 07-02-2024 Telephone [id number] Thomas Petty 1970 M Date Provider Department Center 07/02/2024 Mark Anthony-LUIS F APONTE [facility] GI [facility] No family history on file [facility] HISTOLOGY - TISSUE EXAMon LAB AP CASE REPORT Normal [facility] Comment on above: Result Comment: Surg ical Pathology Case: [id number] Authorizing Provider: Luis F Aponte MD Collected: 06/26/2024 1554 Ordering Location: [facility] Received: 06/27/2024 0811 [facility] Endoscopy Pathologist: Maritza Box MD Specimens: A) - Small Intestine, Duodenum, duodenal bx r/o celiac B) - Distal Esophagus, distal esophagus 35 bx r/o dysplagia C) - Distal Esophagus, distal esophageal bx 33 r/o dysplagia Performed By: #### L [id number] ####[facility] (AKER)[address] [place] [address] LAB AP CLINICAL INFORMATION Order Diagnoses [facility] Comment on above: Result Comment: K86. 2 - Pancreatic cyst [ICD-10-CM] R93.5 - Abnormal CT of the abdomen [ICD-10-CM] Performed By: #### L [id number] ####[facility] (BEAKER)[address] [place] [address] LAB AP GROSS DESCRIPTION [facility] Comment on above: Result Comment: A. S mall Intestine, Duodenum. Received in formalin labeled Thomas Petty, duodenal bx r/o celiac, are 5 pieces of clemente-pink, irregular mucosal tissue ranging from 0.2 cm to 0.4 cm in greatest dimension. The specimen is submitted in toto in 1 cassette. Sukumar Flynn' [employer] D[employer] Student B. Distal Esophagus. Received in formalin labeled Thomas Petty, distal esophagus 35 bx r/o dysplagia, are 3 pieces of clemente-pink, irregular mucosal tissue ranging from 0.2 cm to 0.4 cm in greatest dimension. The specimen is submitted in toto in 1 cassette. Jordan Styles Pathologists' [employer] D[employer] Student C. Distal Esophagus. Received in formalin labeled Thomas Petty, distal esophageal bx 33 r/o dysplagia, are 2 pieces of clemente-pink, irregular mucosal tissue each measuring 0.3 cm in greatest dimension. The specimen is submitted in toto in 1 cassette. Jordan Styles, Pathologists' [employer] Dba Student Performed By: #### L [id number] ####[facility] (BEAKER)[address] [place] [address] LAB AP MICROSCOPIC DESCRIPTION Microscopic examination performed. [facility] Comment on above: Performed By: #### L [id number] ####[facility] ([employer])[address] [place] [address] LAB AP REPORT FINAL DIAGNOSIS NARRATIVE [facility] Comment on above: Result Comment: A. D [...] or malignancy identified Performed By: #### L [id number] ####[facility] (BEAKER)[address] [place] [address] HPon 06-26-2024 History Of Present Illness Thomas Petty is a 53 y.o. male with history [...] Imaging Results No image results found. Assessment/Plan Thomas Petty is a 53 y.o. male with history [...] endoscopic ultrasound to assess the pancreas. Normal [facility] NON-CLINICAL ENGINEER CYTOLOGY - CELLULAR EXAMon 06-26-2024 LAB AP CASE REPORT Normal Nalini wiggins [facility] Comment on above: Result Comment: Non- gynecologic Cytology Case: [id number] Authorizing Provider: Luis F Aponte MD Collected: 06/26/2024 1624 Ordering Location: [facility] Received: 06/27/2024 0910 [facility] Endoscopy Pathologist: Kalpana Ventura MD Specimen: Pancreas, Tail, pancreatic tail FNA Performed By: #### L [id number] ####[facility] ([facility])[address] [place] [address] LAB AP CLINICAL INFORMATION Order Diagnoses Normal [facility] Comment on above: Result Comment: K86. 2 - Pancreatic cyst [ICD-10-CM] R93.5 - Abnormal CT of the abdomen [ICD-10-CM] Performed By: #### L [id number] ####[facility] ([facility])[address] [place] [address] LAB AP DIAGNOSIS COMMENT Normal [facility] Comment on above: Result Comment: A. T he specimen is scantly cellular. While no evidence of high grade dysplasia is identified, very few groups of cyst lining epithelium are present in the sample for evaluation. In addition, cyst fluid chemistries could not be performed. Clinical and endoscopic correlation is suggested. Performed By: #### L [id number] ####[facility] ([facility])[address] [place] [address] LAB AP GROSS DESCRIPTION 6 air-dried slides, 3 alcohol-fixed slides, 30 mL CytoLyt with clear, colorless fluid. Normal [facility] Comment on above: Performed By: #### L [id number] ####[facility] ([facility])[address] [place] [address] LAB AP INTRAOPERATIVE CONSULTATION [facility] Comment on above: Result Comment: Catracho Carvajal. Rapid on-site evaluation was performed by Kalpana Ventura MD. The material examined during rapid on-site evaluation was deemed adequate for diagnosis. Pass #1: Adequate Pass #2: Adequate Pass #3: Defer *Only select material is examined during the on-site evaluation. Final diagnosis is pending the review of all material submitted.* Performed By: #### L [id number] ####[facility] ([facility])[address] [place] [address] LAB AP REPORT FINAL DIAGNOSIS NARRATIVE Normal [facility] Comment on above: Result Comment: A. P ancreas, tail, EUS-guided fine needle aspiration: - Neoplastic mucinous cyst, favor an intraductal papillary mucinous neoplasm (IPMN). - No high grade dysplasia identified. - See comment. Performed By: #### L [id number] ####[facility] ([facility])[address] [place] [address] POCT GLUCOSE METER UNSOLICIT ED RESULTSon 06-26-2024 Glucose [Mass/Vol] 86 mg/dL Normal 70-105 [facility] Comment on above: Order Comment: Waive d Testing in the ED is performed under the ED CLIA certificate #[id number]. Result Comment: jenc [email or web address] Performed By: #### L [id number] ####[facility] ([facility])[address] [place] [address] Prep for Procedureon 024 Prep for Procedure [id number] [facility] 1970 [facility] Date Provider Department Center 06/26/20[address] [facility] PREOP PR Medical C No family history on file Normal [facility] Telephoneon 06-10-2024 Telephone [id number] MalindaHerbster 1970 M Date Provider Department Center 06/10/2024 CHAI ABDALLA [facility] ARON No family history on file [facility] Telephoneon 05-30-2024 Telephone [id number] [facility] 1970 [facility] Date Provider Department Center 05/30/2024 CHAI ABDALLA [facility] No family history on file [facility] BASIC METABOLIC PANLon 05-24 Anion gap [Moles/Vol] 11 mmol/L Normal 5-15 [facility] Comment on above: Performed By: #### 7 18-7, PLTCT, 28568-5, 59817-5, BMP, 3040- 3, LIVR, 81758-8 #### [facility] ([id number]) [address], [address] [place] [address] Calcium [Mass/Vol] 9.0 mg/dL Normal 8.5-10.5 [facility] Comment on above: Performed By: #### 7 18-7, PLTCT, 52130-0, 31891-3, BMP, 3040- 3, LIVR, 72475-5 #### [facility] ([id number]) [address], [address] [place] [address] Chloride [Moles/Vol] 106 mmol/L Normal 98-109 [facility] Comment on above: Performed By: #### 7 18-7, PLTCT, 07753-7, 72320-7, BMP, 3040- 3, LIVR, 75461-7 #### [facility] ([id number]) [address], [address] [place] [address] CO2 [Moles/Vol] 25 mmol/L Normal 22-32 [facility] Comment on above: Performed By: #### 7 18-7, PLTCT, 68615-3, 56378-2, BMP, 3040- 3, LIVR, 40885-1 #### [facility] ([id number]) [address], [address] [place] [address] Creatinine [Mass/Vol] 1.23 mg/dL Normal 0.60-1.30 [facility] Comment on above: Result Comment: METH OD TRACEABLE TO IDMS STANDARD Performed By: #### 7 18-7, PLTCT, 22664-3, 65079-3, BMP, 3040-3, LIVR, 28348-1 #### [facility] ([id number]) [address], [address] [place] [address] GFR/1.73 sq M.predicted among non-blacks MDRD (S/P/Bld) [Vol rate/Area] 70 mL/min/{1.73_m2} Normal >59 [facility] Comment on above: Result Comment: Reported eGFR is based on the CKD-EPI 2020 equation that does not use a race coefficient. Performed By: #### 7 18-7, PLTCT, 05433-2, 12317-5, BMP, 3040-3, LIVR, 41402-7 #### [facility] ([id number]) [address], [address] [place] [address] Glucose [Mass/Vol] 114 mg/dL High 65-99 [facility] Comment on above: Performed By: #### 7 18-7, PLTCT, 86019-5, 11607-4, BMP, 3040- 3, LIVR, 88080-1 #### [facility] ([id number]) [address], [address] [place] [address] Potassium [Moles/Vol] 3.6 mmol/L Normal 3.5-5.0 [facility] Comment on above: Performed By: #### 7 18-7, PLTCT, 37074-1, 96496-5, BMP, 3040- 3, LIVR, 96040-4 #### [facility] ([id number]) [address], [address] [place] [address] Sodium [Moles/Vol] 142 mmol/L Normal 134-146 [facility] Comment on above: Performed By: #### 7 18-7, PLTCT, 96365-7, 00331-6, BMP, 3040- 3, LIVR, 93410-3 #### [facility] ([id number]) [address], [address] [place] [address] Urea nitrogen [Mass/Vol] 15 mg/dL Normal 5-23 [facility] Comment on above: Performed By: #### 7 18-7, PLTCT, 30469-5, 45378-8, BMP, 3040- 3, LIVR, 28849-8 #### [facility] ([id number]) [address], [address] [place] [address] CBC AND AUTO DIFFon 05-24-20 ABSOLUTE BASOPHIL 0.0 X10E9/L Normal 0.0-0.2 [facility] Comment on above: Performed By: #### 8 9579-7, CBCA #### [facility] ([id number]) [address], [address] [place] [address] ABSOLUTE NEUTROPHIL 4.2 X10E9/L Normal 1.5-6.6 [facility] Comment on above: Performed By: #### 8 9579-7, CBCA #### [facility] ([id number]) [address], [address] [place] [address] Basophils/100 WBC (Bld) 0.4 % Normal [facility] Comment on above: Performed By: #### 8 9579-7, CBCA #### [facility] ([id number]) [address], [address] [place] [address] Eosinophils (Bld) [#/Vol] 0.1 10*3/uL Normal 0.0-0.4 [facility] Comment on above: Performed By: #### 8 9579-7, CBCA #### [facility] ([id number]) [address], [address] [place] [address] Eosinophils/100 WBC (Bld) 1.1 % Normal [facility] Comment on above: Performed By: #### 8 9579-7, CBCA #### [facility] ([id number]) [address], [address] [place] [address] Erythrocyte distribution width (RBC) [Ratio] 12.5 % Normal 11.5-15.0 [facility] Comment on above: Performed By: #### 8 9579-7, CBCA #### [facility] ([id number]) [address], [address] [place] [address] Hematocrit (Bld) [Volume fraction] 36.9 % Low 39-49 [facility] Comment on above: Performed By: #### 8 9579-7, CBCA #### [facility] ([id number]) [address], [address] [place] [address] Hemoglobin (Bld) [Mass/Vol] 12.6 g/dL Low 13.0-17.0 [facility] Comment on above: Performed By: #### 8 9579-7, CBCA #### [facility] ([id number]) [address], [address] [place] [address] Lymphocytes (Bld) [#/Vol] 2.6 10*3/uL Normal 1.0-3.5 [facility] Comment on above: Performed By: #### 8 9579-7, CBCA #### [facility] ([id number]) [address], [address] [place] [address] Lymphocytes/100 WBC (Bld) 34.5 % Normal [facility] Comment on above: Performed By: #### 8 9579-7, CBCA #### [facility] ([id number]) [address], [address] [place] [address] MCH (RBC) [Entitic mass] 28.9 pg Normal 27-34 [facility] Comment on above: Performed By: #### 8 9579-7, CBCA #### [facility] ([id number]) [address], [address] [place] [address] MCHC (RBC) [Mass/Vol] 34.2 g/dL Normal 32-36 [facility] Comment on above: Performed By: #### 8 9579-7, CBCA #### [facility] ([id number]) [address], [address] [place] [address] MCV (RBC) [Entitic vol] 85 fL Normal 80-100 [facility] Comment on above: Performed By: #### 8 9579-7, CBCA #### [facility] ([id number]) [address], [address] [place] [address] Monocytes (Bld) [#/Vol] 0.7 10*3/uL Normal 0-0.9 [facility] Comment on above: Performed By: #### 8 9579-7, CBCA #### [facility] ([id number]) [address], [address] [place] [address] Monocytes/100 WBC (Bld) 9.4 % Normal [facility] Comment on above: Performed By: #### 8 9579-7, CBCA #### [facility] ([id number]) [address], [address] [place] [address] Neutrophils/100 WBC (Bld) 54.6 % Normal [facility] Comment on above: Performed By: #### 8 9579-7, CBCA #### [facility] ([id number]) [address], [address] [place] [address] Platelet mean volume (Bld) [Entitic vol] 8.8 fL Normal 7-12 [facility] Comment on above: Performed By: #### 8 9579-7, CBCA #### [facility] ([id number]) [address], [address] [place] [address] Platelets (Bld) [#/Vol] 216 10*3/uL Normal 150-450 [facility] Comment on above: Performed By: #### 8 9579-7, CBCA #### [facility] ([id number]) [address], [address] [place] [address] RBC COUNT 4.36 X10E12/L Normal 4.10-5.70 [facility] Comment on above: Performed By: #### 8 9579-7, CBCA #### [facility] ([id number]) [address], [address] [place] [address] WBC (Bld) [#/Vol] 7.7 10*3/uL Normal 4.0-11.0 [facility] Comment on above: Performed By: #### 8 9579-7, CBCA #### [facility] ([id number]) [address], [address] [place] [address] ED Clinical Summaryon 2023 ED Clinical Summary (Inserted Image. Mariajose ble to display) [address] [address] ED Clinical Summary Person Information Name: Thomas Petty [facility] Age: 53 Years : 1970 Sex: Male PCP: Eliana Morales Marital Status: Phone: Race: White Ethnicity: Not or Language: Namibian Visit Reason: Abdominal pain; abdominal pain Acuity: 3 Enc Type: Emergency Med Service: Emergency Medicine Arrival: 05/23/2024 16:46:05 Discharge: 05/24/2024 02:20:00 LOS: 000 09:34 Checkin: 05/23/2024 16:46:05 Checkout: 05/24/2024 02:20:00 Dispo Type: Transfer to Acute Care Hospital Address: [address] [place] [id number] Provider Notes: History of Present Illness Patient [...] range between ( 27.2 and 40.8 ) [place] Auto: 7.6 % -- Normal range between [...] range between ( 41.0 and 53.0 ) [place] Absolute: 0.7 x10 MCH: 29.0 pg -- [...] 8.1 ) (more content not included)... Normal [facility] ED Note-Nursingon 05-24-2024 ED Note-Nursing this RN called repor t to [facility] at [facility]. care transferred via phone to [facility] and all her questions answered. pt going to room B759 Lisa Pittman [place] Normal [facility] Glucose Glucometer (BldC) [M ass/Vol]on 05-24-2024 Glucose [Mass/Vol] 108 mg/dL High 65-99 [facility] Glucose [Mass/Vol] 115 mg/dL High 65-99 [facility] HEMOGLOBINon 05-24-2024 Hemoglobin (Bld) [Mass/Vol] 12.1 g/dL Low 13.0-17.0 [facility] Comment on above: Performed By: #### 7 18-7, PLTCT, 60299-9, 46775-1, BMP, 3040- 3, LIVR, 82492-9 #### [facility] ([id number]) [address], [address] [place] [address] LIPASEon 05-24-2024 Lipase [Catalytic activity/Vol] 63 U/L Normal 11-82 [facility] Comment on above: Performed By: #### 7 18-7, PLTCT, 58885-8, 90745-1, BMP, 3040- 3, LIVR, 15402-2 #### [facility] ([id number]) [address], [address] [place] [address] LIVER PANELon 05-24-2024 Albumin [Mass/Vol] 3.8 g/dL Normal 3.2-5.3 [facility] Comment on above: Performed By: #### 7 18-7, PLTCT, 48414-4, 85901-0, BMP, 3040- 3, LIVR, 61420-1 #### [facility] ([id number]) [address], [address] [place] [address] ALP [Catalytic activity/Vol] 74 U/L Normal 39-130 [facility] Comment on above: Performed By: #### 7 18-7, PLTCT, 72720-6, 71540-8, BMP, 3040- 3, LIVR, 12283-1 #### [facility] ([id number]) [address], [address] [place] [address] ALT [Catalytic activity/Vol] 30 U/L Normal 0-40 [facility] Comment on above: Performed By: #### 7 18-7, PLTCT, 80533-0, 02723-5, BMP, 3040- 3, LIVR, 16424-1 #### [facility] ([id number]) [address], [address] [place] [address] AST [Catalytic activity/Vol] 21 U/L Normal 0-41 [facility] Comment on above: Performed By: #### 7 18-7, PLTCT, 02811-8, 86893-8, BMP, 3040- 3, LIVR, 28173-2 #### [facility] ([id number]) [address], [address] [place] [address] Bilirubin [Mass/Vol] 0.3 mg/dL Normal 0.3-1.2 [facility] Comment on above: Performed By: #### 7 18-7, PLTCT, 82180-2, 60501-9, BMP, 3040- 3, LIVR, 18076-3 #### [facility] ([id number]) [address], [address] [place] [address] Bilirubin.direct [Mass/Vol] 0.0 mg/dL Normal 0.0-0.4 [facility] Comment on above: Performed By: #### 7 18-7, PLTCT, 96645-4, 73976-3, BMP, 3040- 3, LIVR, 65458-6 #### [facility] ([id number]) [address], [address] [place] [address] Protein [Mass/Vol] 6.0 g/dL Normal 6.0-8.0 [facility] Comment on above: Performed By: #### 7 18-7, PLTCT, 33361-4, 11282-6, BMP, 3040- 3, LIVR, 16009-2 #### [facility] ([id number]) [address], [address] [place] [address] MAGNESIUMon 05-24-2024 Magnesium [Mass/Vol] 1.8 mg/dL Normal 1.8-2.6 [facility] Comment on above: Performed By: #### 7 18-7, PLTCT, 61736-7, 46689-8, BMP, 3040- 3, LIVR, 84489-5 #### [facility] ([id number]) [address], [address] [place] [address] PLATELET COUNT AND MPVon Platelet mean volume (Bld) [Entitic vol] 7.7 fL Normal 7-12 [facility] Comment on above: Performed By: #### 7 18-7, PLTCT, 83534-5, 22810-1, BMP, 3040- 3, LIVR, 41983-1 #### [facility] ([id number]) [address], [address] [place] [address] Platelets (Bld) [#/Vol] 222 10*3/uL Normal 150-450 [facility] Comment on above: Performed By: #### 7 18-7, PLTCT, 23230-7, 91544-1, BMP, 3040- 3, LIVR, 45639-6 #### [facility] ([id number]) [address], [address] [place] [address] Troponin I.cardiac High sens itivity method [Mass/Vol]on 05-24-2024 1 HOUR TROP I, HIGH SENSITIVITY 4 ng/L Normal <21 [facility] Comment on above: Performed By: #### 8 9579-7, CBCA #### [facility] ([id number]) [address], [address] [address] TROPONIN I, HIGH SENSITIVITY 3 ng/L Normal <21 [facility] Comment on above: Performed By: #### 7 18-7, PLTCT, 47367-6, 31309-0, BMP, 3040- 3, LIVR, 01957-5 #### [facility] ([id number]) [address], [address] [address] aPTT Coag (PPP) [Time]on aPTT Coag (Bld) [Time] 34 s Normal 26-37 [facility] Comment on above: Performed By: #### 7 18-7, PLTCT, 39208-0, 56418-5, BMP, 3040- 3, LIVR, 97693-1 #### [facility] ([id number]) [address], [address] [address] .UA Microscp Aon 05-23-2024 UA RBC Quant 0 /HPF Normal 0-[address] [facility] Comment on above: Performed By: #### . Urinalysis Microscopic Auto #### [address] [address] UA WBC Quant 0 /HPF Normal 0-[address] [facility] Comment on above: Performed By: #### . Urinalysis Microscopic Auto #### [address] [address] .eGFRon 05-23-2024 GFR/1.73 sq M.predicted MDRD (S/P/Bld) [Vol rate/Area] mL/min/{1.73_m2} Normal >=[address] [facility] Comment on above: Result Comment: [facility] Laboratories have implemented the eGFR calculation [...] Age = years Performed By: #### C BC #### [place] [address] CBC w/ Diffon 05-23-2024 Erythrocyte distribution width (RBC) [Ratio] 12.4 % Normal 11.6-14.[address] [facility] Comment on above: Performed By: #### C BC #### [place] [address] Hematocrit (Bld) [Volume fraction] 39.5 % Low 41.0-53.[address] [facility] Comment on above: Performed By: #### C BC #### [place] [address] Hemoglobin (Bld) [Mass/Vol] 13.5 g/dL Normal 13.5-17.[address] [facility] Comment on above: Performed By: #### C BC #### [place] [address] MCH (RBC) [Entitic mass] 29.0 pg Normal 27.0-35.[address] [facility] Comment on above: Performed By: #### C BC #### [address] [address] MCHC 34.1 % Normal 31.0-37.[address] [facility] Comment on above: Performed By: #### C BC #### [address] [address] MCV (RBC) [Entitic vol] 85.0 fL Normal 80.0-100.[address] [facility] Comment on above: Performed By: #### C BC #### [address] [address] Platelet 265 x10*3/mcL Normal 150-[address] [facility] Comment on above: Performed By: #### C BC #### [place] [address] Platelet mean volume (Bld) [Entitic vol] 7.4 fL Normal 6.7-10.[address] [facility] Comment on above: Performed By: #### C BC #### [place] [address] RBC 4.65 x10*6/mcL Normal 4.30-5.[address] [facility] Comment on above: Performed By: #### C BC #### [place] [address] WBC 9.4 x10*3/mcL Normal 4.5-11.[address] [facility] Comment on above: Performed By: #### C BC #### [address] [address] CMPon 05-23-2024 Albumin [Mass/Vol] 4.5 g/dL Normal 3.2-4.9 [facility] Comment on above: Performed By: #### C OMP #### [place] [address] Albumin/Globulin [Mass ratio] 1.7 {ratio} Normal 1.1-2.[address] [facility] Comment on above: Performed By: #### C OMP #### [place] [address] Alk Phos 80 IU/L Normal 32-[address] [facility] Comment on above: Performed By: #### C OMP #### [address] [place] [address] ALT [Catalytic activity/Vol] 41 U/L Normal 17-[address] [facility] Comment on above: Performed By: #### C OMP #### [address] [place] [address] Anion gap [Moles/Vol] 11 mmol/L Normal 4-[address] [facility] Comment on above: Performed By: #### C OMP #### [address] [place] [address] AST [Catalytic activity/Vol] 32 U/L Normal 15-[address] [facility] Comment on above: Performed By: #### C OMP #### [address] [place] [address] Bili Total 0.6 mg/dL Normal 0.3-1.[address] [facility] Comment on above: Performed By: #### C OMP #### [address] [place] [address] Calcium [Mass/Vol] 9.5 mg/dL Normal 8.5-10.3 [facility] Comment on above: Performed By: #### C OMP #### [address] [place] [address] Chloride [Moles/Vol] 100 mmol/L Normal 98-110 [facility] Comment on above: Performed By: #### C OMP #### [address] [place] [address] CO2 [Moles/Vol] 26 mmol/L Normal 22-[address] [facility] Comment on above: Performed By: #### C OMP #### [address] [place] [address] Creatinine [Mass/Vol] 1.28 mg/dL High 0.61-1.[address] [facility] Comment on above: Performed By: #### C OMP #### [address] [address] Glucose [Mass/Vol] 111 mg/dL High 70-99 [facility] Comment on above: Performed By: #### C OMP #### [address] [address] Potassium [Moles/Vol] 4.0 mmol/L Normal 3.4-4.[address] [facility] Comment on above: Performed By: #### C OMP #### [address] [address] Protein [Mass/Vol] 7.2 g/dL Normal 6.5-8.1 [facility] Comment on above: Performed By: #### C OMP #### [address] [address] Sodium [Moles/Vol] 137 mmol/L Normal 133-142 [facility] Comment on above: Performed By: #### C OMP #### [address] [address] Urea nitrogen [Mass/Vol] 16 mg/dL Normal 8-[address] [facility] Comment on above: Performed By: #### C OMP #### [address] [address] Urea nitrogen/Creatinine [Mass ratio] 12.5 mg/mg Normal 10.0-20.[address] [facility] Comment on above: Performed By: #### C OMP #### [address] [address] [address] Abdomen Pelvis w/ IV Cont [facility] 05-23-2024 CT Abdomen Pelvis w/ IV Contrast [...] Electronically Signed in Other Vendor System) Normal [facility] Diff Autoon 05-23-2024 Baso Absolute 0.0 x10*3/mcL Normal 0.0-0.2 [facility] Comment on above: Performed By: #### . Automated Diff #### [address] [address] Basophils/100 WBC (Bld) 0.4 % Normal 0.0-1.[address] [facility] Comment on above: Performed By: #### . Automated Diff #### [address] [address] Eos Absolute 0.1 x10*3/mcL Normal 0.0-0.[address] [facility] Comment on above: Performed By: #### . Automated Diff #### [address] [address] Eosinophils/100 WBC (Bld) 0.8 % Normal 0.0-6.[address] [facility] Comment on above: Performed By: #### . Automated Diff #### [address] [address] Lymph Absolute 2.1 x10*3/mcL Normal 1.0-4.8 [facility] Comment on above: Performed By: #### . Automated Diff #### [address] [address] Lymphocytes/100 WBC (Bld) 22.3 % Low 27.2-40.[address] [facility] Comment on above: Performed By: #### . Automated Diff #### [address] [address] [place] Absolute 0.7 x10*3/mcL Normal 0.3-1.1 [facility] Comment on above: Performed By: #### . Automated Diff #### [address] [address] Monocytes/100 WBC (Bld) 7.6 % Normal 4.7-13.[address] [facility] Comment on above: Performed By: #### . Automated Diff #### [address] [address] Neutro Absolute 6.5 x10*3/mcL Normal 1.8-7.7 [facility] Comment on above: Performed By: #### . Automated Diff #### [address] [address] Neutro Auto 68.9 % Normal 47.2-70.[address] [facility] Comment on above: Performed By: #### . Automated Diff #### [address] [address] ED Note-Nursingon 05-23-2024 ED Note-Nursing pt. requesting water . explained to patient that he is NPO until his CT result comes back in case of surgical emergency. pt. then asked for nausea medication and pain medication. Electronically signed by Bright Simseb 05/23/24 20:03 EDT Normal [facility] ED Note-Physicianon 05-23-20 ED Note-Physician Chief Complaint [...] available. ASA Documentation Medical Decision Making Mili Klir scribing for and in the presence of Dr. Oneal. Alize Attestation: The information in this document, created by the anesthesiology medical doctor for me, accurately reflects the services I [...] _ ? NEXUS C-spine Criteria: _ ? [place] Ankle Rule: _ ? [place] Knee Rule: _ ? [place] Criteria for [...] results with patient. Plan for transfer to [facility] for ERCP. Patient was excepted at [facility], awaiting bed. Shared decision making: _ Code status: _ Assessment/Plan 1. History of pancreatitis Ordered: amitriptyline, 50 mg, Oral, Tab, HS (at bedtime), First Dose: 05/24/24 21:00:00 EDT, Dispense From Location: [facility], 05/23/24 22:15:00 EDT amLODIPine, 2.5 mg, Oral, Tab, Daily, First Dose: 05/24/24 9:00:00 EDT, Dispense From Location: [facility], 05/23/24 22:12:00 EDT atorvastatin, 40 mg, Oral, Tab, Daily, First Dose: 05/24/24 9:00:00 EDT, Dispense From Location: [id number], 05/23/24 22:15:00 EDT clonazePAM, 1 mg, Oral, Tab, HS (at bedtime), First Dose: 05/23/24 22:15:00 EDT, Dispense From Location: [facility], 05/23/24 22:15:00 EDT clonazePAM, 0.5 mg, Oral, Tab, Daily, First Dose: 05/23/24 22:15:00 EDT, Dispense From Location: [facility], 05/23/24 22:15:00 EDT pancrelipase, 6 caps, Oral, Cap-DR, TID, PRN other (see comment), First Dose: 05/23/24 22:15:00 EDT, Dispense From Location: [facility], 05/23/24 22:15:00 EDT ziprasidone, 40 mg, Oral, Cap, HS (at bedtime), First Dose: 05/23/24 22:15:00 EDT, Dispense From Location: [facility], 05/23/24 22:15:00 EDT Complete Blood Count w/ Differential Comprehensive Metabolic Panel 2. Pancreatic duct dilated Ordered: amitriptyline, 50 mg, Oral, Tab, HS (at bedtime), First Dose: 05/24/24 21:00:00 EDT, Dispense From Location: [facility], 05/23/24 22:15:00 EDT amLODIPine, 2.5 mg, Oral, Tab, Daily, First Dose: 05/24/24 9:00:00 EDT, Dispense From Location: [facility], (more content not included)... Normal [facility] Lipaseon 05-23-2024 Lipase Lvl 103 IU/L High 22-[address] [facility] Comment on above: Performed By: #### L IP #### [place] [id number] UA w Culture if Indon 2023 Color (U) Yellow Normal Yellow [facility] Comment on above: Performed By: #### C BC #### [place] [id number] Ketones Ql (U) Negative Normal Negative [facility] Comment on above: Performed By: #### C BC #### [facility] [address] [place] [address] UA Blood Negative Normal Negative [facility] Comment on above: Performed By: #### C BC #### [facility] [address] [place] [address], [place] [address] UA Clarity Clear Normal Clear [facility] Comment on above: Performed By: #### C BC #### [facility] [address] [place] [address], [place] [address] UA Glucose Normal Normal Negative [facility] Comment on above: Performed By: #### C BC #### [facility] [address] [place] [address], [place] [address] UA Leukocyte Esterase Negative Normal Negative [facility] Comment on above: Performed By: #### C BC #### [facility] [address] [place] [address], [place] [address] UA Nitrite Negative Normal Negative [facility] Comment on above: Performed By: #### C BC #### [facility] [address] [place] [address], [place] [address] UA pH 7.0 Normal 4.5 - 7.[address] [facility] Comment on above: Performed By: #### C BC #### [facility] [address] [place] [address], [place] [address] UA Protein Negative Normal Negative [facility] Comment on above: Performed By: #### C BC #### [facility] [address] [place] [address], [place] [address] UA Source Clean Catch Normal [facility] Comment on above: Performed By: #### C BC #### [facility] [address] [place] [address], [place] [address] UA Spec Grav 1.010 Normal 1.003-1.[address] [facility] Comment on above: Performed By: #### C BC #### [address] [place] [address] UA Urobilinogen Normal Normal 0.2 - 1.[address] [facility] Comment on above: Performed By: #### C BC #### [facility] [address] [place] [address] Urobilinogen (U) [Mass/Vol] Negative Normal Negative [facility] Comment on above: Performed By: #### C #### [facility] [address] [place] [address] No Panel Informationon 04-26 Left wrist: 1. [...] above. Kyphosis of the thoracic spine. 3. Qnai-jx-dximcsou degenerative changes in the thoracic spine. Lumbar [...] adjacent to the lateral right iliac bone. [facility] Miguel Jimenez MD [...] above. Kyphosis of the thoracic spine. 3. Ydtz-oc-fjmtfalb degenerative changes in the thoracic spine. Lumbar spine: 1. Remote vertebroplasty and compression deformity of L3. 2. No acute vertebral body height loss in the lumbar spine. [employer] No Panel InformationOrdered By: Miguel Jimenez on 04-26-2024 [employer] Work Phone: XR Finger - left 2 Viewson 0 04-26-2024 Radiology Study observation (narrative) [employer] XR Lumbar spine 2 or 3 Views on 04-26-2024 Radiology Study observation (narrative) [employer] XR Thoracic spine 2 Viewson 04-26-2024 Radiology Study observation (narrative) [employer] XR Wrist - left 3 [employer]son Radiology Study observation (narrative) [employer] Creatinineon 04-23-2024 Creatinine [Mass/Vol] 1.1 mg/dL 0.7 - 1.2 mg/dL [employer] Est, Glom Filt Rate 80 - PINF [facility] [employer] Comment on above: These results are not [...] following therapy that affects renal tubular secretion. [facility] [employer] Benzodiazepines Screen Ql (U )on 03-26-2024 Benzodiazepines Ql (U) Negative Normal NEG [facility] Comment on above: Result Comment: Leon odiazepines screening cut off value = 200 ng/mL This report is intended for use in clinical monitoring or management of patients. Performed By: #### 1 4316-4 #### [facility] ([id number]) [address] [place] [address] CCL GENERIC ORDERon 03-26-20 TEST NAME UQNTPP Normal [facility] Comment on above: Performed By: #### C GO #### [facility] ([id number]) [address] [place] [address] TEST RESULT See Below Normal [facility] Comment on above: Result Comment: NOTE TEST [...] carboxylic acid (THCA) is a metabolite of ebxeg-9-xwfcucrpogzbhbhngmpy which is the main active component of marijuana. Fentanyl, Urine <6 ng/mL <6 Buprenorphine, Ur <20 ng/mL <20 Methadone Urine <16 ng/mL <16 Methadone metabolite Urine <6 ng/mL <6 EDDP is a metabolite of methadone. Note See Below This test is for medical use only. This test was developed and its performance characteristics determined by [facility] Path[facility] and Laboratory Medicine [place] [facility] It has not been cleared or approved by the FDA. [facility] is regulated under CLIA as qualified to perform high-complexity testing. This test is used for clinical purposes. It should not be regarded as investigational or for research. Specimen Validity Quality See below Specimen quality results within acceptable limits Specimen Validity Creatinine 14.5 L mg/dL 20.0-300.0 Specimen Validity PH 7.2 4.5-8.0 Specimen Validity Specific [facility]arch 1.005 1.003-1.035 Specimen Validity Oxidants <38 mg/L <200 Specimen Validity Nitrites <50 mg/L <500 Specimen Validity Chromate <10 mg/L <50 Test Performed By: [facility] [address] [place] [address] Medical Appointment Clerk: Ykaov Gurrola III, M.D. CLIA #[id number] Performed By: #### C GO #### [facility] ([id number]) [address] [place] [id number] Laboratory comment Jacinto (Repo rt)on 03-26-2024 UNLISTED LAB TEST Sent to reference lab Normal [facility] Comment on above: Performed By: #### C GO #### [facility] ([id number]) [address] [place] [address] Basic Metabolic Panelon 05- Anion gap [Moles/Vol] 11 mmol/L 9 - 17 mmol/L [facility] Calcium [Mass/Vol] 9.6 mg/dL 8.6 - 10. 4 mg/dL [facility] Chloride [Moles/Vol] 98 mmol/L 98 - 10 7 mmol/L [facility] CO2 [Moles/Vol] 26 mmol/L 20 - 31 mmol/L [facility] Creatinine [Mass/Vol] 1.1 mg/dL 0.7 - 1.2 mg/dL [facility] Est, Glom Filt Rate 80 - [facility]F [facility] Comment on above: These results are [...] 132 mg/dL High 70 - 99 mg/dL [facility] Interpretation and review of laboratory results Abnormal [facility] Potassium [Moles/Vol] 4.1 mmol/L 3.7 - 5.3 mmol/L [facility] Sodium [Moles/Vol] 135 mmol/L 135 - 144 mmol/L [facility] Urea nitrogen [Mass/Vol] 10 mg/dL 6 - 20 mg/dL [facility] Urea nitrogen/Creatinine [Mass ratio] 9 mg/mg 9 - 20 [facility] Brain Natriuretic Peptideon 03-17-2024 Natriuretic peptide B (Bld) [Mass/Vol] pg/mL NINF - 300 pg/mL [facility] Comment on above: An age-independent cutoff point of 300 pg/ml has a 98% negative predictive value excluding acute heart failure. [facility] CBC with Auto Differentialon 03-17-2024 Basophils (Bld) [#/Vol] 0.04 10*3/uL [facility] Basophils/100 WBC (Bld) 1 % 0 - 2 % [facility] Eosinophils (Bld) [#/Vol] 0.05 10*3/uL [facility] Eosinophils/100 WBC (Bld) 1 % 1 - 4 % [facility] Erythrocyte distribution width (RBC) [Ratio] 12.0 % 11.8 - 14.4 % [facility] Hematocrit (Bld) [Volume fraction] 38.6 % Low 40.7 - 50.3 % [facility] Hemoglobin (Bld) [Mass/Vol] 12.8 g/dL Low 13.0 - 17.0 g/dL [facility] Immature granulocytes (Bld) [#/Vol] 0.07 10*3/uL [facility] Immature granulocytes/100 WBC (Bld) 1 % High 0 [facility] Interpretation and review of laboratory results Abnormal [facility] Lymphocytes/100 WBC (Bld) 27 % 24 - 43 % [facility] Lymphocytes/100 WBC (Bld) 2.40 % [facility] MCH (RBC) [Entitic mass] 28.8 pg 25.2 - 33.5 pg [facility] MCHC (RBC) [Mass/Vol] 33.2 g/dL 28.4 - 34.8 g/dL [facility] MCV (RBC) [Entitic vol] 86.9 fL 82.6 - 102.9 fL [facility] Monocytes/100 WBC (Bld) 10 % 3 - 12 % [facility] Monocytes/100 WBC (Bld) 0.86 % [facility] Neutrophils/100 WBC (Bld) 60 % 36 - 65 % [facility] Nucleated RBC/100 WBC (Bld) [Ratio] 0.0 % 0.0 per 100 WBC [facility] Platelet mean volume (Bld) [Entitic vol] 9.2 fL 8.1 - 13.5 fL [facility] Platelets (Bld) [#/Vol] 277 10*3/uL [facility] RBC (Bld) [#/Vol] 4.44 10*6/uL 4.21 - 5.7 7 m/uL [facility] Segmented neutrophils/100 WBC (Bld) 5.44 % [facility] WBC other (Bld) [#/Vol] 8.9 [facility] No Panel Informationon 03-17 [employer] Portable XR Chest AP single viewon 03-17-2024 No radiographic evid ence of acute cardiopulmonary process. [facility] EXAMINATION: ONE XRAY VIEW OF THE CHEST 03/17/2024 2:11 pm COMPARISON: 01/31/2024 HISTORY: ORDERING SYSTEM PROVIDED HISTORY: chest pain TECHNOLOGIST PROVIDED HISTORY: chest pain FINDINGS: The lungs appear clear. The heart and mediastinal structures appear unremarkable. 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 There is a spinal stimulator in the midthoracic spine. There is no change from prior examination [facility] Ernie Gutiérrez MD - 03/17/2024 EXAMINATION: [...] No radiographic evidence of acute cardiopulmonary process. [facility] Radiology Study observation (narrative) [employer] Portable XR Chest AP single viewOrdered By: Ernie Gutiérrez on 03-17-2024 [facility] Work Phone: Troponinon 03-17-2024 Troponin I.cardiac High sensitivity method [Mass/Vol] 11 ng/L 0 - 22 ng/L [facility] Comment on above: High Sensitivity Tro ponin values cannot be compared with other Troponin methodologies. [facility] Troponin I.cardiac High sensitivity method [Mass/Vol] 11 ng/L 0 - 22 ng/L [facility] Comment on above: High Sensitivity Tro ponin values cannot be compared with other Troponin methodologies. Benzodiazepines Screen Ql (U )on 01-21-2024 Benzodiazepines Ql (U) Negative Normal NEG [facility] Comment on above: Result Comment: Leon odiazepines screening cut off value = 200 ng/mL This report is intended for use in clinical monitoring or management of patients. Performed By: #### 1 4316-4 #### [facility] ([id number]) [address], [address] [place] [address] CCL GENERIC ORDERon 01-21-20 TEST NAME UQNTPP QUANTITATIVE PAIN PANEL, URINE Normal [facility] Comment on above: Performed By: #### C GO #### [facility] ([id number]) [address] [place] [address] TEST RESULT See Below Normal [facility] Comment on above: Result Comment: NOTE TEST RESULT FLAG UNIT REF.RANGE ----- Specimen Validity Quality See below Specimen quality results within acceptable limits Specimen Validity Creatinine 16.2 L mg/dL 20.0-300.0 Specimen Validity PH 6.6 4.5-8.0 Specimen Validity Specific [facility] 1.005 1.003-1.035 Specimen Validity Oxidants <38 mg/L [...] carboxylic acid (THCA) is a metabolite of qmvtj-3-rlmfrehoizljkppbvamu which is the main active component of marijuana. Fentanyl, Urine <6 ng/mL <6 Buprenorphine, Ur <20 ng/mL <20 Methadone Urine <16 ng/mL <16 Methadone metabolite Urine <6 ng/mL <6 EDDP is a metabolite of methadone. Note See Below This test is for medical use only. This test was developed and its performance characteristics determined by [facility] Pathology and Laboratory Medicine [place] ([facility]). It has not been cleared or approved by the FDA. [facility] is regulated under CLIA as qualified to perform high-complexity testing. This test is used for clinical purposes. It should not be regarded as investigational or for research. QUANTITATIVE PAIN PANEL, URINE Test Performed By: [facility] [address] [place] [address] Medical Appointment Clerk: Yakov Gurrola III, M.D. [place] #[id number] Performed By: #### C GO #### [facility] ([id number]) [address] [place] [phone] Laboratory comment Jacinto (Repo rt)on 01-21-2024 UNLISTED LAB TEST Sent to reference lab Normal [facility] Comment on above: Performed By: #### C GO #### [facility] ([id number]) [address] [place] [address] Glucose Glucometer (BldC) [M ass/Vol]on 01-14-2024 Glucose [Mass/Vol] 91 mg/dL Normal 65-99 [facility] Ironon 11-30-2023 Iron [Mass/Vol] 95 ug/dL 59 - 158 ug/dL [facility] Microscopic Urinalysison Bacteria LM Ql (Urine sed) TRACE Abnormal None [facility] Epithelial cells LM.HPF (Urine sed) [#/Area] None [facility] Interpretation and review of laboratory results Abnormal [facility] RBC LM.HPF (Urine sed) [#/Area] None [facility] WBC LM.HPF (Urine sed) [#/Area] None [facility] No Panel Informationon 11-30 [facility] Urinalysis with Reflex to Cu ltureon 11-30-2023 Bilirubin Ql (U) Negative NEGATIVE [facility] Clarity (U) Clear Clear [facility] Color (U) Yellow Yellow [facility] Glucose Test strip (U) [Mass/Vol] Negative NEGATIVE mg/dL [facility] Hemoglobin Auto test strip Ql (U) Negative NEGATIVE [facility] Interpretation and review of laboratory results Abnormal [facility] Ketones (U) [Mass/Vol] Negative NEGATIVE mg/dL [facility] Leukocyte esterase Test strip Ql (U) Negative NEGATIVE [facility] Nitrite Ql (U) Negative NEGATIVE [facility] pH (U) 6.0 [pH] 5.0 - 9.0 [facility] Protein (U) [Mass/Vol] Negative NEGATIVE mg/dL [facility] Specific gravity (U) [Rel density] Low 1.010 - 1.020 [facility] Urobilinogen Qn (U) Normal 0.0 - 1. 0 EU/dL [facility] Vitamin D 25 Hydroxyon 11-30 25-hydroxyvitamin D3 [Mass/Vol] 80.7 ng/mL 29.9 - PINF ng/mL [facility] Comment on above: Reference Range: Vitamin D status Range Deficiency <20 ng/mL Mild Deficiency 20-30 ng/mL Sufficiency 30-100 ng/mL Toxicity >100 ng/mL Nuclear stress test with justino cardial perfusionon 07-06-2023 Baseline Diastolic BP 80 mmHg [facility] Baseline HR 71 bpm [facility] Baseline Systolic BP 116 mmHg [facility] Nuc Stress EF 81 [...] [facility] Stress Rate Pressure Product 86513 bpm*mmHg [facility] Stress Systolic BP 120 mmHg [facility] Stress Target HR [...] stress end diastolic cavity size is normal. [facility] CV RPACS STRESS [facility] Nuclear stress test with justino cardial perfusionon 07-05-2023 Radiology Study observation (narrative) [facility] XR CHEST (2 VW)on 12-09-2019 XR [...] Kp Bhatia MD 12/09/19 Final result Normal [facility] XR HIP 2-3 VW W PELVIS RIGHT [...] Octavio Seymour MD 11/17/19 Final result Normal [facility] XR KNEE RIGHT (MIN 4 VIEWS)o n [...] Octavio Seymour MD 11/17/19 Final result Normal [facility] Vital Signs Date Time Vital Sign Value Performing Clinician Facility 06-18-2025 18:34-0400 SaO2% (BldA) [Mass fraction] 93 % Dmitry Tierney MD Work Phone: [facility] 06-18-2025 18:33-0400 Diastolic blood pressure 77 mm[Hg] Dmitry Tierney MD Work Phone: [facility] 06-18-2025 18:33-0400 Systolic blood pressure 140 mm[Hg] Dmitry Tierney MD Work Phone: [employer] 06-18-2025 17:59-0400 Heart rate 94 /min Dmitry Tierney MD Work Phone: [facility] 06-18-2025 17:59-0400 Respiratory rate 19 /min Dmitry Tierney MD Work Phone: [employer] 06-18-2025 14:55-0400 Body height 177.8 cm Dmitry Tierney MD Work Phone: [employer] 06-18-2025 14:55-0400 Body mass index (BMI) [Ratio] 29.7 kg/m2 Dmitry Tierney MD Work Phone: [employer] 06-18-2025 14:55-0400 Body temperature 99.1 [degF] Dmitry Tierney MD Work Phone: [facility] 06-18-2025 14:55-0400 Body weight 93.89 kg Dmitry Tierney MD Work Phone: [employer] 05-30-2025 21:13-0400 Respiratory rate 18 /min Luis Alberto Graves MD Work Phone: [employer] 05-30-2025 15:25-0400 Body temperature 99 [degF] Luis Alberto Graves MD Work Phone: [employer] 05-30-2025 15:25-0400 Diastolic blood pressure 82 mm[Hg] Luis Alberto wheatley MD Work Phone: [employer] 05-30-2025 15:25-0400 Heart rate 86 /min Luis Alberto Graves MD Work Phone: [facility] 05-30-2025 15:25-0400 SaO2% (BldA) [Mass fraction] 95 % Luis Alberto Graves MD Work Phone: [facility] 05-30-2025 15:25-0400 Systolic blood pressure 123 mm[Hg] Luis Alberto hudson MD Work Phone: [employer] 05-27-2025 10:00-0400 SaO2% (BldA) [Mass fraction] 93 % Jae Baldwin MD Work Phone: [employer] 05-27-2025 08:52-0400 Body height 177.8 cm Jae Baldwin MD Work Phone: [employer] 05-27-2025 08:04-0400 Body temperature 97.59 [degF] Jae Baldwin MD Work Phone: [employer] 05-27-2025 08:04-0400 Diastolic blood pressure 80 mm[Hg] Jae Walls i, MD Work Phone: [email or web address] 05-27-2025 08:04-0400 Heart rate 78 /min Jae Baldwin MD Work Phone: [email or web address] 05-27-2025 08:04-0400 Respiratory rate 18 /min Jae Baldwin MD Work Phone: [email or web address] 05-27-2025 08:04-0400 Systolic blood pressure 123 mm[Hg] Jae Baldwin MD Work Phone: [employer] 05-27-2025 04:34-0400 Body mass index (BMI) [Ratio] 31.19 kg/m2 Jae Baldwin MD Work Phone: [facility] 05-27-2025 04:34-0400 Body weight 98.61 kg Jae Baldwin MD Work Phone: [facility] 02-24-2025 12:37-0400 Body temperature 97 [degF] Farida Gibbons DO Work Phone: [facility] 02-24-2025 11:30-0400 Body height 177.8 cm Farida Gibbons DO Work Phone: [facility] 02-24-2025 11:30-0400 Body mass index (BMI) [Ratio] 27.98 kg/m2 Farida Gibbons DO Work Phone: [facility] 02-24-2025 11:30-0400 Body weight 88.45 kg Farida Gibbons DO Work Phone: [facility] 02-24-2025 11:30-0400 Diastolic blood pressure 82 mm[Hg] Farida Gibbons DO Work Phone: [facility] 02-24-2025 11:30-0400 Heart rate 69 /min Farida Gibbons DO Work Phone: [facility] 02-24-2025 11:30-0400 Respiratory rate 20 /min Farida Gibbons DO Work Phone: [facility] 02-24-2025 11:30-0400 SaO2% (BldA) [Mass fraction] 98 % Farida Gibbons DO Work Phone: [facility] 02-24-2025 11:30-0400 Systolic blood pressure 123 mm[Hg] Farida Shai DO Work Phone: [facility] 01-23-2025 16:20-0400 Diastolic blood pressure 81 mm[Hg] Dariusz Ring Work Phone: [facility] 01-23-2025 16:20-0400 Heart rate 65 /min Dariusz Pratt MD Work Phone: [facility] 01-23-2025 16:20-0400 Respiratory rate 16 /min Dariusz Pratt MD Work Phone: [facility] 01-23-2025 16:20-0400 SaO2% (BldA) [Mass fraction] 96 % Dariusz Pratt MD Work Phone: [facility] 01-23-2025 16:20-0400 Systolic blood pressure 130 mm[Hg] Dariusz Pratt MD Work Phone: [facility] 01-23-2025 15:54-0400 Body temperature 97.5 [degF] Dariusz Partt MD Work Phone: [facility] 01-23-2025 15:04-0400 Body height 177.8 cm Dariusz Pratt MD Work Phone: [facility] 01-23-2025 15:04-0400 Body mass index (BMI) [Ratio] 27.69 kg/m2 Dariusz Pratt MD Work Phone: [facility] 01-23-2025 15:04-0400 Body weight 87.54 kg Dariusz Pratt MD Work Phone: [facility] 01-05-2025 15:30-0400 Diastolic blood pressure 79 mm[Hg] Remy Hardin MD Work Phone: [facility] 01-05-2025 15:30-0400 Heart rate 89 /min Remy Hardin MD Work Phone: [facility] 01-05-2025 15:30-0400 Respiratory rate 16 /min Remy Hardin MD Work Phone: [facility] 01-05-2025 15:30-0400 SaO2% (BldA) [Mass fraction] 92 % Remy Hardin MD Work Phone: [facility] 01-05-2025 15:30-0400 Systolic blood pressure 137 mm[Hg] Remy Hardin MD Work Phone: [facility] 01-05-2025 14:04-0400 Body height 177.8 cm Remy Hardin MD Work Phone: [facility] 01-05-2025 14:04-0400 Body mass index (BMI) [Ratio] 27.26 kg/m2 Remy Hardin MD Work Phone: [facility] 01-05-2025 14:04-0400 Body temperature 97.9 [degF] Remy Hardin MD Work Phone: [facility] 01-05-2025 14:04-0400 Body weight 86.18 kg Remy Hardin MD Work Phone: [facility] 12-05-2024 17:46-0500 Diastolic blood pressure 86 mm[Hg] Dmitry Tierney MD Work Phone: [employer] 12-05-2024 17:46-0500 Heart rate 90 /min Dmitry Tierney MD Work Phone: [employer] 12-05-2024 17:46-0500 Respiratory rate 18 /min Dmitry Tierney MD Work Phone: [employer] 12-05-2024 17:46-0500 SaO2% (BldA) [Mass fraction] 96 % Dmitry Tierney MD Work Phone: [employer] 12-05-2024 17:46-0500 Systolic blood pressure 145 mm[Hg] Dmitry Tierney MD Work Phone: [employer] 12-05-2024 16:01-0500 Body height 177.8 cm Dmitry Tierney MD Work Phone: [employer] 12-05-2024 16:01-0500 Body mass index (BMI) [Ratio] 27.26 kg/m2 Dmitry Tierney MD Work Phone: [employer] 12-05-2024 16:01-0500 Body temperature 98.2 [degF] Dmitry Tierney MD Work Phone: [employer] 12-05-2024 16:01-0500 Body weight 86.18 kg Dmitry Tierney MD Work Phone: [facility] 11-30-2024 14:17-0500 Body height 177.8 cm [employer] Work Phone: [employer] 11-30-2024 14:17-0500 Body mass index (BMI) [Ratio] 27.26 kg/m2 [employer] Work Phone: [employer] 11-30-2024 14:17-0500 Body temperature 98.6 [degF] [employer] Work Phone: [employer] 11-30-2024 14:17-0500 Body weight 86.18 kg Eliana Gian [employer] Work Phone: [employer] 11-30-2024 14:17-0500 Diastolic blood pressure 94 mm[Hg] [employer] Work Phone: [employer] 11-30-2024 14:17-0500 Heart rate 88 /min [employer] Work Phone: [employer] 11-30-2024 14:17-0500 Respiratory rate 16 /min [employer] Work Phone: [employer] 11-30-2024 14:17-0500 Systolic blood pressure 137 mm[Hg] [employer] Work Phone: [employer] 09-05-2024 18:28-0500 Body mass index (BMI) [Ratio] 30.71 kg/m2 Dariusz Lambert MD Work Phone: [employer] 09-05-2024 18:28-0500 Body temperature 99.7 [degF] Dariusz Lambert MD Work Phone: [employer] 09-05-2024 18:28-0500 Body weight 97.07 kg Dariusz Lambert MD Work Phone: [facility] 09-05-2024 18:28-0500 Diastolic blood pressure 90 mm[Hg] Dariusz Lambert MD Work Phone: [facility] 09-05-2024 18:28-0500 Heart rate 95 /min Dariusz Lambert MD Work Phone: [facility] 09-05-2024 18:28-0500 Respiratory rate 16 /min Dariusz Lambert MD Work Phone: [facility] 09-05-2024 18:28-0500 SaO2% (BldA) [Mass fraction] 95 % Dariusz Lambert MD Work Phone: [facility] 09-05-2024 18:28-0500 Systolic blood pressure 136 mm[Hg] Dariusz Lambert MD Work Phone: [facility] 08-28-2024 17:33-0500 SaO2% (BldA) [Mass fraction] 100 % ELIANA SPRINGER [facility] Comment on above: Order Comment: Specimen Type: ARTERIAL B LOOD SPECIMENOrdering Facility: [facility] Address: [address] [place] [address] Performed By: #### A LLBG ####[facility] LABCLIA [id number] [address] STATES OF [facility] 08-28-2024 16:01-0500 SaO2% (BldA) [Mass fraction] 100 % ELIANA SPRINGER [facility] Comment on above: Order Comment: Specimen Type: ARTERIAL B LOOD SPECIMENOrdering Facility: [facility] Address: [address] [place] [address] Performed By: #### A LLMG ####[facility] LABCLIA [id number] [address] [place] 08-28-2024 14:06-0500 SaO2% (BldA) [Mass fraction] 99 % ELIANA SPRINGER [facility] Comment on above: Order Comment: Specimen Type: ARTERIAL B LOOD SPECIMENOrdering Facility: [facility] Address: [address] [place] [address] Performed By: #### A LLMG ####[facility] LABCLIA [id number] [facility] [id number] [id number] [facility] 08-22-2024 11:24-0400 Body height 177.8 cm Pac [employer] Work Phone: [facility] 08-22-2024 11:24-0400 Body mass index (BMI) [Ratio] 30.37 kg/m2 Pac 7 Work Phone: [facility] 08-22-2024 11:24-0400 Body temperature 98.29 [degF] Pacc [employer] Work Phone: [facility] 08-22-2024 11:24-0400 Body weight 96 kg [employer] Work Phone: [facility] 08-22-2024 11:24-0400 Diastolic blood pressure 78 mm[Hg] [employer] 7 Work Phone: [facility] 08-22-2024 11:24-0400 Heart rate 78 /min [employer] Work Phone: [facility] 08-22-2024 11:24-0400 SaO2% (BldA) [Mass fraction] 98 % Pac 7 Work Phone: [facility] 08-22-2024 11:24-0400 Systolic blood pressure 125 mm[Hg] Pacc 7 Work Phone: [facility] 08-11-2024 11:56-0400 Body height 177.8 cm Rohit Miller MD Work Phone: [facility] 08-11-2024 11:56-0400 Body mass index (BMI) [Ratio] 30.71 kg/m2 Rohit Miller MD Work Phone: [facility] 08-11-2024 11:56-0400 Body temperature 98.2 [degF] Rohit Miller MD Work Phone: [facility] 08-11-2024 11:56-0400 Body weight 97.07 kg Rohit Miller MD Work Phone: [facility] 08-11-2024 11:56-0400 Diastolic blood pressure 82 mm[Hg] Rohit Ring Work Phone: [employer] 08-11-2024 11:56-0400 Heart rate 68 /min Rohit Miller MD Work Phone: [facility] 08-11-2024 11:56-0400 Respiratory rate 16 /min Rohit Miller MD Work Phone: [facility] 08-11-2024 11:56-0400 SaO2% (BldA) [Mass fraction] 97 % Rohit Miller MD Work Phone: [employer] 08-11-2024 11:56-0400 Systolic blood pressure 140 mm[Hg] Rohit Miller MD Work Phone: [employer] 08-08-2024 13:21-0400 Body temperature 97.7 [degF] Eliana Gian [employer] Work Phone: [facility] 08-08-2024 13:21-0400 Diastolic blood pressure 79 mm[Hg] Eliana Gian [employer] Work Phone: [employer] 08-08-2024 13:21-0400 Heart rate 87 /min Eliana Gian [employer] Work Phone: [facility] 08-08-2024 13:21-0400 Respiratory rate 16 /min Eliana Gian [employer] Work Phone: [facility] 08-08-2024 13:21-0400 SaO2% (BldA) [Mass fraction] 97 % Eliana Springer [employer] Work Phone: [facility] 08-08-2024 13:21-0400 Systolic blood pressure 129 mm[Hg] Eliana Stanleyer [employer] Work Phone: [facility] 08-05-2024 17:30-0400 Body height 177.8 cm Joycelyn Smith MD Work Phone: [facility] 08-05-2024 17:30-0400 Body mass index (BMI) [Ratio] 30.71 kg/m2 Joycelyn Smith MD Work Phone: [facility] 08-05-2024 17:30-0400 Body temperature 98.2 [degF] Joycelyn Smith MD Work Phone: [facility] 08-05-2024 17:30-0400 Body weight 97.07 kg Joycelyn Smith MD Work Phone: [facility] 08-05-2024 17:30-0400 Diastolic blood pressure 82 mm[Hg] Joycelyn Smith MD Work Phone: [facility] 08-05-2024 17:30-0400 Heart rate 84 /min Joycelyn Smith MD Work Phone: [facility] 08-05-2024 17:30-0400 Respiratory rate 16 /min Joycelyn Smith MD Work Phone: [facility] 08-05-2024 17:30-0400 SaO2% (BldA) [Mass fraction] 95 % Joycelyn Smith MD Work Phone: [employer] 08-05-2024 17:30-0400 Systolic blood pressure 133 mm[Hg] Joycelyn Smith MD Work Phone: [facility] 07-28-2024 08:50-0400 Diastolic blood pressure 69 mm[Hg] Sheyla Mensah MD Work Phone: [facility] 07-28-2024 08:50-0400 Heart rate 54 /min Sheyla Mensah MD Work Phone: [facility] 07-28-2024 08:50-0400 Respiratory rate 16 /min Sheyla Mensah MD Work Phone: [facility] 07-28-2024 08:50-0400 SaO2% (BldA) [Mass fraction] 98 % Sheyla Mensah MD Work Phone: [facility] 07-28-2024 08:50-0400 Systolic blood pressure 115 mm[Hg] Sheyla Ring Work Phone: [facility] 07-28-2024 08:24-0400 Body temperature 97.5 [degF] Sheyla Mensah MD Work Phone: [facility] 07-28-2024 07:36-0400 Body height 177.8 cm Sheyla Mensah MD Work Phone: [facility] 07-28-2024 07:36-0400 Body mass index (BMI) [Ratio] 30.71 kg/m2 Sheyla Mensah MD Work Phone: [facility] 07-28-2024 07:36-0400 Body weight 97.07 kg Sheyla Mensah MD Work Phone: [facility] 07-22-2024 14:36-0400 Body temperature 97.7 [degF] SARHA Jacobson MD Work Phone: [facility] 07-22-2024 14:36-0400 Body weight 97.5 kg SARAH Jacobson MD Work Phone: [facility] 07-22-2024 14:36-0400 Diastolic blood pressure 83 mm[Hg] SARAH Jacobson MD Work Phone: [facility] 07-22-2024 14:36-0400 Heart rate 79 /min SARAH Jacobson MD Work Phone: [facility] 07-22-2024 14:36-0400 Respiratory rate 20 /min SARAH Jacobson MD Work Phone: [facility] 07-22-2024 14:36-0400 SaO2% (BldA) [Mass fraction] 98 % SARAH Jacobson MD Work Phone: [facility] 07-22-2024 14:36-0400 Systolic blood pressure 146 mm[Hg] SARAH Jacobson MD Work Phone: [facility] 04-26-2024 11:33-0400 Body temperature 98.29 [degF] Max Addison Jr., MD Work Phone: [facility] [employer] 04-26-2024 11:33-0400 Diastolic blood pressure 87 mm[Hg] Max London MD Work Phone: [facility] [employer] 04-26-2024 11:33-0400 Heart rate 78 /min Max Addison Jr., MD Work Phone: [facility] [employer] 04-26-2024 11:33-0400 Respiratory rate 18 /min Max Addison Jr., MD Work Phone: [facility] [employer] 04-26-2024 11:33-0400 SaO2% (BldA) [Mass fraction] 99 % Max Addison Jr., MD Work Phone: [facility] [employer] 04-26-2024 11:33-0400 Systolic blood pressure 131 mm[Hg] Max Addison Jr., MD Work Phone: [facility] [employer] 03-17-2024 16:15-0400 Diastolic blood pressure 59 mm[Hg] Tegan Arita D O Work Phone: [employer] 03-17-2024 16:15-0400 Heart rate 57 /min Tegan Arita DO Work Phone: [facility] [employer] 03-17-2024 16:15-0400 Respiratory rate 13 /min Tegan Arita DO Work Phone: [employer] 03-17-2024 16:15-0400 SaO2% (BldA) [Mass fraction] 96 % Tegan Arita DO Work Phone: [facility] [employer] 03-17-2024 16:15-0400 Systolic blood pressure 117 mm[Hg] Tegan Arita DO Work Phone: [facility] [employer] 03-17-2024 13:56-0400 Body height 177.8 cm Tegan Galvanbal DO [facility] 03-17-2024 13:56-0400 Body mass index (BMI) [Ratio] 30.56 kg/m2 Tegan Galvanbal DO [facility] 03-17-2024 13:56-0400 Body temperature 98.4 [degF] Tegan [facility]rita DO [facility] 03-17-2024 13:56-0400 Body weight 96.62 kg Tegan Arita DO [facility] 02-25-2024 12:03-0400 Body height 177.8 cm [facility] 02-25-2024 12:03-0400 Body mass index (BMI) [Ratio] 29.41 kg/m2 [facility]ana Strat[facility] 02-25-2024 12:03-0400 Body weight 92.99 kg [facility]ana Stratton [facility] 02-25-2024 12:03-0400 Diastolic blood pressure 78 mm[Hg] Joana Ring [facility] 02-25-2024 12:03-0400 Heart rate 71 /min [facility] Stratton [facility] 02-25-2024 12:03-0400 Respiratory rate 16 /min Joana Stratton MD Work Phone: [facility] 02-25-2024 12:03-0400 Systolic blood pressure 112 mm[Hg] Joana Stratton MD Work Phone: [facility] 01-21-2024 13:08-0400 Body height 177.8 cm Joana Stratton MD Work Phone: [facility] 01-21-2024 13:08-0400 Body mass index (BMI) [Ratio] 29.41 kg/m2 Joana Stratton MD Work Phone: [facility] 01-21-2024 13:08-0400 Body weight 92.99 kg Joana Stratton MD Work Phone: [facility] 01-21-2024 13:08-0400 Diastolic blood pressure 77 mm[Hg] Joana Ring Work Phone: [facility] 01-21-2024 13:08-0400 Heart rate 73 /min Joana Stratton MD Work Phone: [facility] 01-21-2024 13:08-0400 Respiratory rate 16 /min Joana Stratton MD Work Phone: [facility] 01-21-2024 13:08-0400 Systolic blood pressure 124 mm[Hg] Joana Stratton MD Work Phone: [facility] 12-24-2023 12:46-0500 Body height 177.8 cm Joana Stratton MD Work Phone: [facility] 12-24-2023 12:46-0500 Body mass index (BMI) [Ratio] 29.41 kg/m2 Joana Stratton MD Work Phone: [facility] 12-24-2023 12:46-0500 Body weight 92.99 kg Joana Stratton MD Work Phone: [facility] 12-24-2023 12:46-0500 Diastolic blood pressure 85 mm[Hg] Joana Ring Work Phone: [facility] 12-24-2023 12:46-0500 Heart rate 83 /min Joana Stratton MD Work Phone: [facility] 12-24-2023 12:46-0500 Respiratory rate 18 /min Joana Stratton MD Work Phone: [facility] 12-24-2023 12:46-0500 Systolic blood pressure 139 mm[Hg] Joana Stratton MD Work Phone: [facility] 11-21-2023 14:09-0500 Body height 177.8 cm Slime Romano [employer] Work Phone: [facility] 11-21-2023 14:09-0500 Body mass index (BMI) [Ratio] 29.41 kg/m2 Slime Romano [employer] Work Phone: [facility] 11-21-2023 14:09-0500 Body weight 92.99 kg Slime Romano [employer] Work Phone: [facility] 11-21-2023 14:09-0500 Diastolic blood pressure 78 mm[Hg] Slime Romano [employer] Work Phone: [facility] 11-21-2023 14:09-0500 Heart rate 84 /min Slime Romano [employer] Work Phone: [facility] 11-21-2023 14:09-0500 Respiratory rate 18 /min Slime Romano [employer] Work Phone: [facility] 11-21-2023 14:09-0500 Systolic blood pressure 121 mm[Hg] Slime Romano [employer] Work Phone: [facility] 10-24-2023 13:45-0500 Body height 177.8 cm Slime Romano [employer] Work Phone: [facility] 10-24-2023 13:45-0500 Body mass index (BMI) [Ratio] 29.41 kg/m2 Slime Romano [employer] Work Phone: [employer] 10-24-2023 13:45-0500 Body weight 92.99 kg Slime Romano [employer] Work Phone: [employer] 10-24-2023 13:45-0500 Diastolic blood pressure 85 mm[Hg] Slime Romano [employer] [facility] Phone: [facility] 10-24-2023 13:45-0500 Heart rate 82 /min Slime Romano [employer] Work Phone: [facility] 10-24-2023 13:45-0500 Respiratory rate 18 /min Slime Romano [employer] Work Phone: [employer] 10-24-2023 13:45-0500 Systolic blood pressure 128 mm[Hg] Slime Romano [employer] Work Phone: [facility] [employer] [facility] Encounters Encounter Date Encounter Type Care Provider Facility Start: 07-07-2025 End: 07-07-2025 Telemedicine consultation with patient Kathy Bravo MD Work Phone: Endocrinology Start: 07-07-2025 End: 07-07-2025 ambulatory Kathy Bravo MD Work Phone: Endocrinology Comment on above: Post-pancreatectomy diabetes (HCC) (Primary Dx); Insulin pump status Start: 07-01-2025 End: 07-01-2025 Telephone encounter Kathy Bravo MD Work Phone: Endocrinology Comment on above: Request For Clinical Notes Start: 06-26-2025 End: 06-26-2025 Refill Kathy Bravo MD Work Phone: Endocrinology Comment on above: Refill Request Start: 06-18-2025 End: 06-18-2025 Emergency department patient visit Dmitry Tierney MD Work Phone: [facility] Emergency Department Comment on above: Pneumonia of right m iddle lobe due to infectious organism (Primary Dx); Nausea vomiting and diarrhea Start: 06-12-2025 End: 06-12-2025 Telephone encounter Kathy Bravo MD Work Phone: Endocrinology Comment on above: Forms (ADS order for m) Start: 05-31-2025 Evaluation and management of inpatient CANDIDO ALEGRE [facility] Start: 05-30-2025 End: 05-30-2025 Admission to establishment Luis Alberto Graves MD Work Phone: [facility] Work Phone: Start: 05-30-2025 End: 05-30-2025 Emergency department patient visit Luis Alberto Graves MD Work Phone: [facility] Emergency Department Comment on above: Medical clearance fo r psychiatric admission (Primary Dx); Depression with suicidal ideation; PTSD (post-traumatic stress disorder) Start: 05-25-2025 End: 05-27-2025 Evaluation and management of inpatient Jae Baldwin MD Work Phone: [facility] Comment on above: Right flank pain (Pr imary Dx); Pneumonia of right lower lobe due to infectious organism; RACQUEL (acute kidney injury); Acute pneumonia Start: 05-13-2025 End: 05-13-2025 ambulatory ELIANA SPRINGER [facility] Start: 05-13-2025 End: 05-13-2025 Subsequent hospital visit by physician Eliana Kenney CNP Work Phone: [facility] Comment on above: BPH with obstruction /lower urinary tract symptoms; Incomplete bladder emptying Start: 04-28-2025 End: 04-28-2025 Telephone encounter Kathy Bravo MD Work Phone: Endocrinology Comment on above: progress notes Start: 04-20-2025 End: 04-20-2025 ambulatory Eliana DALE Facility:[facility] Start: 04-15-[address] [facility] Start: 04-03-2025 End: 04-03-2025 Telephone encounter Jesus Jacobson MD Work Phone: General Surgery Comment on above: Patient Update Start: 03-31-2025 End: 03-31-2025 ambulatory Kathy Bravo MD Work Phone: Endocrinology Comment on above: Post-pancreatectomy diabetes (HCC) (Primary Dx); Insulin pump status Start: 03-31-2025 End: 03-31-2025 Telemedicine consultation with patient Kathy Bravo MD Work Phone: Endocrinology Start: 03-31-2025 End: 03-31-2025 Telephone encounter Kathy Bravo MD Work Phone: Endocrinology Comment on above: Appointment Start: 03-18-2025 End: 03-18-2025 Telephone encounter Kathy Bravo MD Work Phone: Endocrinology Comment on above: Request For Clinical Notes Start: 03-04-2025 End: 03-04-2025 Telephone encounter Kathy Bravo MD Work Phone: Endocrinology Comment on above: Forms Start: 03-03-2025 End: 03-03-2025 ambulatory Rob Corado MD [facility] Start: 02-24-2025 End: 02-24-2025 Emergency department patient visit Farida Gibbons DO Work Phone: [facility] Emergency Department Comment on above: Contusion of finger of left hand, unspecified finger, initial encounter (Primary Dx) Start: 02-17-2025 End: 02-17-2025 Refill Kathy Bravo MD Work Phone: Endocrinology Comment on above: Refill Request Start: 02-16-2025 End: 02-18-[address] [facility] Start: 02-16-2025 End: 02-18-2025 Subsequent hospital visit by physician [facility] Scan Room [facility] Comment on above: Left lower quadrant abdominal pain; History of diverticulitis Start: 01-28-2025 End: 03-30-2025 Follow-up encounter Dariusz Pratt MD Work Phone: Gastroenterology Start: 01-23-2025 End: 01-23-2025 ambulatory ELIANA SPRINGER Facility:[facility] Start: 01-23-2025 End: 01-23-2025 Subsequent hospital visit by physician Dariusz Pratt MD Work Phone: Gastroenterology Comment on above: IPMN (intraductal pa pillary mucinous neoplasm) [D49.0] Start: 01-16-2025 End: 01-16-2025 ambulatory Bacilio Nowak RNhead golf professional Start: 01-07-2025 End: 01-07-2025 Orders Only Ligia Kerns RN Work Phone: General Surgery Comment on above: IPMN (intraductal pa pillary mucinous neoplasm) (Primary Dx) Start: 01-05-2025 End: 01-05-2025 ambulatory Realitycheck[employer] Facility:[facility] Start: 01-05-2025 End: 01-05-2025 Subsequent hospital visit by physician Remy Hardin MD Work Phone: Gastroenterology Comment on above: IPMN (intraductal pa pillary mucinous neoplasm) [D49.0] Start: 12-29-2024 End: 12-29-2024 ambulatory Claudine Mendez RN Gastroenterology Start: 12-29-2024 End: 12-29-2024 Telephone encounter Kathy Bravo MD Work Phone: Endocrinology Comment on above: Forms Start: 12-24-2024 End: 12-26-2024 Subsequent hospital visit by physician Dilcia Payton Dr Room 4 [facility] Radiology Comment on above: Influenza A; Chest tightness Start: 12-24-2024 End: 12-26-2024 ambulatory Kathy Bravo MD Work Phone: Endocrinology Comment on above: Post-pancreatectomy diabetes (HCC) (Primary Dx); Insulin pump status Start: 12-24-2024 End: 12-24-2024 Telemedicine consultation with patient Kathy Bravo MD Work Phone: Endocrinology Start: 12-23-2024 End: 12-23-2024 Orders Only Ligia Kerns RN Work Phone: General Surgery Comment on above: IPMN (intraductal pa pillary mucinous neoplasm) (Primary Dx) Start: 12-16-2024 End: 12-16-2024 ambulatory [facility] Start: 12-16-2024 End: 12-16-2024 Subsequent hospital visit by physician Eliana Springer APRN - [employer] WORKER Work Phone: [facility] Comment on above: Dysuria; Vomiting and diarrhea Start: 12-12-2024 End: 12-12-2024 Orders Only Lizzy Qiu RN Work Phone: General Surgery Comment on above: IPMN (intraductal pa pillary mucinous neoplasm) (Primary Dx) Start: 12-05-2024 End: 12-05-2024 Emergency department patient visit Dmitry Tierney MD Work Phone: [facility] Emergency Department Comment on above: Rib pain (Primary Dx ); Abdominal pain, right upper quadrant Start: 12-04-2024 End: 12-04-2024 Telephone encounter Jesus Jacobson MD Work Phone: General Surgery Comment on above: Patient Update; Anneliese ent Question Start: 12-01-2024 End: 12-01-2024 Telephone encounter Jesus Jacobson MD Work Phone: General Surgery Comment on above: Patient Question Start: 11-30-2024 End: 11-30-2024 Emergency department patient visit ELIANA Stacia [facility] Emergency Department Comment on above: Contusion of back, u nspecified laterality, initial encounter (Primary Dx); Sprain of left hand, initial encounter; Contusion of left elbow, initial encounter Start: 11-27-2024 End: 11-27-2024 [facility] Start: 11-27-2024 End: 11-27-2024 Subsequent hospital visit by physician Eliana Kenney CNP Work Phone: [facility] Comment on above: Dysuria Start: 11-24-2024 End: 11-24-2024 ambulatory Danica Conklin MD Facility: [facility] Start: 11-03-2024 End: 11-03-2024 ambulatory Danica Conklin MD Facility:[facility] Start: 10-31-2024 End: 10-31-2024 ambulatory Kathy Bravo MD Work Phone: Endocrinology Comment on above: Post-pancreatectomy diabetes (HCC) (Primary Dx); Insulin pump status Start: 10-31-2024 End: 10-31-2024 Telemedicine consultation with patient Kathy Bravo MD Work Phone: Endocrinology Start: 10-20-2024 End: 10-20-2024 ambulatory Danica Conklin MD Facility:[facility] Start: 10-10-2024 End: 10-24-2024 Telephone encounter Dario Hines RN Work Phone: Di[facility] Comment on above: Insulin Pump Start F ollow Up Start: 10-07-2024 End: 10-07-2024 Nursing evaluation of patient and report Dario Hines RN Work Phone: [facility] Comment on above: Post-pancreatectomy diabetes (HCC) (Primary Dx) Start: 10-07-2024 End: 10-07-2024 ambulatory ELIANA SPRINGER Facility:[facility] Start: 10-02-2024 End: 10-02-2024 Telephone encounter Kathy Bravo MD Work Phone: Endocrinology Comment on above: Forms ([employer] Insulin pump) Start: 10-02-2024 End: 10-02-2024 ambulatory Dario Hines RN Work Phone: Diabetic Education [facility] Comment on above: Post-pancreatectomy diabetes (HCC) (Primary Dx) Start: 10-02-2024 End: 10-02-2024 Telemedicine consultation with patient Dario Hines RN Work Phone: Diabetic Education [facility] Start: 09-30-2024 End: 09-30-2024 ambulatory [employer] Facility:[facility] Start: 09-30-2024 End: 09-30-2024 Patient encounter robin Jacobson MD Work Phone: General Surgery Comment on above: IPMN (intraductal pa pillary mucinous neoplasm) (Primary Dx) Start: 09-26-2024 End: 09-26-2024 Telephone encounter Kathy Bravo MD Work Phone: Endocrinology Comment on above: Insulin pump start t raining Start: 09-24-2024 End: 09-24-2024 ambulatory Kathy Bravo MD Work Phone: Endocrinology Comment on above: Regarding Pump and S upplies Start: 09-24-2024 End: 09-24-2024 E-mail encounter from caregiver Kathy Bravo MD Work Phone: Endocrinology Start: 09-24-2024 End: 09-24-2024 Telephone encounter Kathy Bravo MD Work Phone: Endocrinology Comment on above: Forms Start: 09-19-2024 End: 09-19-2024 Refill Kathy Bravo MD Work Phone: Endocrinology Comment on above: Refill Request Start: 09-15-2024 End: 09-15-2024 Telephone encounter Kathy Bravo MD Work Phone: Endocrinology Comment on above: Forms Start: 09-11-2024 End: 09-11-2024 Refill Jesus Jacobson MD Work Phone: General Surgery Start: 09-09-2024 End: 09-09-2024 ambulatory Kathy Bravo MD Work Phone: Endocrinology Comment on above: Post-pancreatectomy diabetes (HCC) (Primary Dx) Start: 09-09-2024 End: 09-09-2024 Telemedicine consultation with patient Kathy Bravo MD Work Phone: Endocrinology Start: 09-09-2024 End: 09-19-2024 Telephone encounter Kathy Bravo MD Work Phone: Endocrinology Comment on above: Patient Update Insurance Authorizat ion (Insulin Pump [[facility]]) Start: 09-05-2024 End: 09-05-2024 Emergency department patient visit Dariusz Lambert MD Work Phone: [facility] ED Comment on above: Strain of neck [...] Evaluation and management of inpatient Jesus JACOBSON Facility:[facility] Start: 08-22-2024 End: 08-22-2024 Patient encounter procedure Jhonatan Hensley PhD Work Phone: General Surgery Comment on above: IPMN (intraductal pa pillary mucinous neoplasm); Preoperative examination Start: 08-22-2024 Encounter for other preprocedural examination ELIANA SPRINGER [facility] Start: 08-22-2024 End: 08-22-2024 Nursing evaluation of patient and report Ligia Kerns RN Work Phone: General Surgery Comment on above: Preoperative examina tion (Primary Dx) Start: 08-22-2024 End: 08-22-2024 Preprocedural examination done Ligia Kerns RN Work Phone: [facility] Work Phone: Start: 08-22-2024 End: 08-22-2024 Subsequent hospital visit by physician Xr Chest Main [facility] Radiology Comment on above: IPMN (intraductal pa pillary mucinous neoplasm) [D49.0] Start: 08-22-2024 End: 08-22-2024 ambulatory [facility] Facility:[facility] Start: 08-22-2024 End: 08-22-2024 ambulatory [facility] Facility:[facility] Start: 08-22-2024 End: 08-22-2024 Admission to [...] Start: 08-22-2024 End: 08-22-2024 Preprocedural examination done [place] [id number] Work Phone: [facility] Work Phone: Start: 08-22-2024 End: 08-22-2024 ambulatory ELIANA SPRINGER Facility:[facility] Start: 08-22-2024 End: 08-22-2024 ambulatory Kathy Bravo MD Work Phone: Endocrinology Comment on above: Post-pancreatectomy diabetes (HCC) (Primary Dx) Start: 08-22-2024 End: 08-22-2024 Telemedicine consultation with patient Kathy Bravo MD Work Phone: Endocrinology Start: 08-14-2024 End: 08-14-2024 Orders Only Ligia Kenrs RN Work Phone: General Surgery Comment on above: IPMN (intraductal pa pillary mucinous neoplasm) (Primary Dx) 08/22/2024 pre op 08/28/2024 CURE (Total panc) Start: 08-14-2024 End: 08-14-2024 Preprocedural examination done Jesus Jacobson MD Work Phone: [facility] Start: 08-11-2024 End: 08-11-2024 Emergency department patient visit Rohit Miller MD Work Phone: [facility] ED Comment on above: Left-sided chest wal l pain (Primary Dx); Rib contusion, left, sequela Start: 08-08-2024 End: 08-08-2024 Telephone encounter Jesus Jacobson MD Work Phone: General Surgery Comment on above: Patient Update Start: 08-08-2024 End: 08-08-2024 [facility] Comment on above: Chest wall contusion , left, initial encounter (Primary Dx); Strain of tendon of left half of anterior chest wall Start: 08-05-2024 End: 08-05-2024 Emergency department patient visit Joycelyn Smith MD Work Phone: [facility] ED Comment on above: Other chronic pancre atitis (HCC) (Primary Dx); Epigastric pain Start: 08-05-2024 End: 08-05-2024 Telephone encounter Ligia Kerns RN Work Phone: General Surgery Start: 08-04-2024 End: 08-04-2024 Refill Jesus Jacobson MD Work Phone: General Surgery Start: 07-30-2024 End: 08-04-2024 Telephone encounter Jesus Jacobson MD Work Phone: General Surgery Comment on above: Results; Patient Que stion Start: 07-28-2024 End: 07-28-2024 ambulatory Jesus JACOBSON Facility: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) [facility] Start: 07-14-2024 End: 07-14-2024 ambulatory [facility] Start: 07-14-2024 End: 07-14-2024 Subsequent hospital visit by physician Eliana Kenney CNP Work Phone: [facility] Laboratory Comment on above: Anemia, unspecified type; Vitamin D deficiency; Other fatigue; Prostate cancer screening Start: 07-01-2024 End: 07-01-2024 ambulatory Cristal X Oryolandedanae Facility:[facility] Start: 07-01-2024 End: 07-01-2024 Patient encounter procedure Cristal X Orzech [facility] Start: 06-26-2024 End: 06-26-2024 ambulatory LUIS F APONTE [facility] Start: 05-27-2024 ambulatory Wesly Davies [facility] y:[facility] Start: 05-24-2024 End: 05-28-2024 Telephone encounter Luna Tomlinson [facility] Call Celine littlejohn Comment on above: Pancreatitis Start: 05-24-2024 End: 05-24-2024 Evaluation and management of inpatient LAURI Nick [facility] Start: 05-23-2024 ambulatory [facility] Start: 05-23-2024 End: 05-24-2024 Emergency department patient visit Jacqueline Oneal MD Facility:[facility] Start: 05-13-2024 End: 05-13-2024 ambulatory [facility] [employer] WORKER Facility:[facility] Start: 05-12-2024 End: 05-12-2024 ambulatory [facility] [employer] WORK[employer] Facility:[facility] Start: 04-26-2024 End: 04-26-2024 Emergency department patient visit Max Addison MD Work Phone: [facility] ED Comment on above: Thoracic myofascial strain, initial encounter (Primary Dx); Left wrist sprain, initial encounter; Closed nondisplaced fracture of phalanx of left index finger, unspecified phalanx, initial encounter Start: 04-23-2024 End: 04-25-2024 Subsequent hospital visit by physician [facility] Comment on above: Cervical spinal sten osis Start: 04-03-2024 End: 04-03-2024 Refill Va Benavides RN [facility] Comment on above: Postlaminectomy synd gumaro, lumbar region Start: 04-02-2024 End: 04-02-2024 Telephone encounter Valentina Dietz RN [facility] Start: 03-31-2024 End: 03-31-2024 Telephone encounter Sara Spaulding CMA [facility] Start: 03-26-2024 End: 03-26-2024 ambulatory SLIME Franklyn ROMANO [facility] Start: 03-25-2024 End: 03-25-2024 Documentation procedure Valentina Dietz RN [facility] Start: 03-17-2024 End: 03-17-2024 Emergency department patient visit Tegan Arita DO Work Phone: [facility] ED Comment on above: Nonspecific chest pa in (Primary Dx) Start: 02-25-2024 End: 02-25-2024 Office outpatient visit 25 minutes Joana Stratton MD Work Phone: [facility] Comment on above: Cervical radiculitis (Primary Dx); Postlaminectomy syndrome, lumbar region; Encounter for long-term opiate analgesic use; Cervicalgia Start: 02-25-2024 End: 02-25-2024 ambulatory [facility] Start: 01-31-2024 End: 02-02-2024 Subsequent hospital visit by physician Eliana Kenney CNP Work Phone: [facility] Radiology Start: 01-21-2024 End: 01-21-2024 ambulatory [facility] Start: 01-21-2024 End: 01-21-2024 Office outpatient visit 25 minutes Joana Stratton MD Work Phone: [facility] Comment on above: Thoracic spondylosis without myelopathy (Primary Dx); Postlaminectomy syndrome, lumbar region; Encounter for long-term opiate analgesic use Start: 01-21-2024 End: 01-21-2024 ambulatory [facility] Krishan [facility] Start: 01-15-2024 End: 01-15-2024 Evaluation and management of inpatient MIGDALIA ART [facility] Start: 01-14-2024 End: 01-15-2024 Evaluation and management of inpatient [facility] Krishan [facility] Start: 12-24-2023 End: 12-24-2023 Office outpatient visit 25 minutes Joana Stratton MD Work Phone: [facility] Comment on above: Thoracic spondylosis without myelopathy (Primary Dx); Postlaminectomy syndrome, lumbar region; Encounter for long-term opiate analgesic use Start: 12-24-2023 End: 12-24-2023 ambulatory [facility] Start: 11-30-2023 End: 11-30-2023 Subsequent hospital visit by physician Eliana Springer APRN - [employer]ER AND [employer] WORKER Work Phone: [facility] Laboratory Comment on above: Other fatigue; Chronic pain syndrome; Anemia, unspecified type; Low vitamin D level Start: 11-27-2023 Documentation procedure Valentina neri RN [facility] Start: 11-26-2023 End: 11-27-2023 Evaluation and management of inpatient [facility] Krishan [facility] Start: 11-21-2023 End: 11-21-2023 Office outpatient visit 25 minutes Slime Romano [employer] WORKER Work Phone: [facility] Comment on above: Thoracic spondylosis without myelopathy (Primary Dx); Postlaminectomy syndrome, lumbar region; Lumbosacral spondylosis without myelopathy Start: 11-21-2023 End: 11-21-2023 ambulatory SLIME ROMANO [facility] Start: 11-06-2023 Orders Only Genoveva cazares CMA [facility] Comment on above: Thoracic spondylosis without myelopathy (Primary Dx) Start: 10-24-2023 End: 10-24-2023 Office outpatient visit 25 minutes Slime M Romano [employer]ER Work Phone: [facility] Comment on above: Thoracic spondylosis (Primary Dx); Postlaminectomy syndrome, lumbar region; Encounter for long-term opiate analgesic use Start: 10-24-2023 End: 10-24-2023 ambulatory SLIME ROMANO [facility] Start: 10-08-2023 End: 10-09-2023 Evaluation and management of inpatient JOANA STRATTON [facility] Start: 07-05-2023 End: 07-07-2023 Patient encounter status [facility]li Strong MD [facility] Work [facility]: Start: 07-05-2023 End: 07-07-2023 Subsequent hospital visit by physician Uli Strong MD Work Phone: [facility] Comment on above: Preop cardiovascular exam; Primary hypertension; Mixed hyperlipidemia; Intermittent chest pain Start: 06-21-2023 End: 06-21-2023 Subsequent hospital visit by physician Eliana Springer APRN - P[employer]ER AND [employer] WORKER Work Phone: [facility] Comment on above: Diarrhea, unspecifie d type Start: 09-27-2020 End: 09-27-2020 Patient encounter procedure [facility] Start: 08-23-2020 End: 08-23-2020 Patient encounter procedure [facility] Start: 07-05-2020 End: 07-05-2020 Patient encounter procedure [facility] [place] Start: 05-24-2020 End: 05-24-2020 Patient encounter procedure [facility] [place] Start: 04-26-2020 End: 04-27-2020 Patient encounter procedure [facility] Start: 01-26-2020 End: 01-26-2020 Patient encounter procedure [facility] Start: 12-15-2019 End: 12-15-2019 Patient encounter procedure [facility] [place] Start: 12-09-2019 End: 12-09-2019 Patient encounter procedure [facility] [place] Start: 12-02-2019 End: 12-02-2019 Patient encounter procedure [facility] [place] Start: 11-27-2019 End: 11-27-2019 Patient encounter procedure [facility] [place] Start: 11-17-2019 End: 11-17-2019 Patient encounter procedure [facility] Start: 11-17-2019 End: 11-17-2019 Patient encounter procedure [facility] [place] Procedures Date Procedure Procedure Detail Performing Clinician Start: 06-18-2025 Ct abdomen & pelvis w/contrast material Dmitry Tierney MD Work Phone: Start: 06-18-2025 Ecg routine ecg w/least 12 lds w/i&r Dmitry Tierney MD Work Phone: Start: 06-18-2025 Radiologic exam chest single view Dmitry Tierney MD Work Phone: Start: 06-18-2025 End: 06-18-2025 Comprehensive metabolic panel Dmitry deras MD Work Phone: Start: 06-18-2025 End: 06-18-2025 LACTATE, SEPSIS Dmitry Tierney MD Work Phone: Start: 06-18-2025 COVID-19, RAPID Dmitry Tierney MD Work Phone: Start: 06-18-2025 Iaadiadoo influenza Dmitry Tierney MD Work Phone: Start: 05-30-2025 Ecg routine ecg w/least 12 lds w/i&r Luis Hayes PA-C Work Phone: Start: 05-30-2025 Radiologic exam chest 2 views Luis feliz PA-C Work Phone: Start: 05-30-2025 Drug tst prsmv instrmnt chem analyzers pr date Luis Alberto Graves MD Work Phone: Start: 05-30-2025 Assay of acetaminophen Luis Alberto wheatley MD Work Phone: Start: 05-30-2025 Assay of ethanol Luis Alberto Graves MD Work Phone: Start: 05-30-2025 Assay of salicylate Luis Alberto Graves MD Work Phone: Start: 05-30-2025 Comprehensive metabolic panel Luis Alberto Graves MD Work Phone: Start: 05-27-2025 End: 05-27-2025 GLUCOSE, WHOLE BLOOD Irvin Obrien MD Work Phone: Start: 05-27-2025 GLUCOSE, WHOLE BLOOD Irvin Obrien MD Work Phone: Start: 05-27-2025 Blood count complete auto&auto difrntl wbc Rosenda L Chucho [employer] - [employer] Work Phone: Start: 05-26-2025 GLUCOSE, WHOLE BLOOD Irvin Obrien MD Work Phone: Start: 05-26-2025 GLUCOSE, WHOLE BLOOD Irvin Obrien MD Work Phone: Start: 05-26-2025 Rhythm ecg 1-3 leads w/interpretation & report Unknown Provider Result Start: 05-26-2025 GLUCOSE, WHOLE BLOOD Irvin Obrien MD Work Phone: Start: 05-26-2025 Culture bacterial blood aerobic w/id isolates Irvin Obrien MD Work Phone: Start: 05-26-2025 Us abdominal real time w/image documentation Good Brenner [employer] Work Phone: Start: 05-26-2025 CULTURE, BLOOD 1 Irvin Obrien MD Work Phone: Start: 05-26-2025 GLUCOSE, WHOLE BLOOD Irvin Obrien MD Work Phone: Start: 05-26-2025 Rhythm ecg 1-3 leads w/interpretation & report Unknown Provider Result Start: 05-26-2025 Blood count complete auto&auto difrntl wbc Rosenda L Chucho [employer] Work Phone: Start: 05-26-2025 Procalcitonin (pct) Rosenda Rankin [employer] Work Phone: Start: 05-25-2025 Radiologic exam chest 2 views Luis Alberto Graves MD Work Phone: Start: 05-25-2025 Urnls dip stick/tablet rgnt auto w/o microscopy Jae Baldwin MD Work Phone: Start: 05-25-2025 Ct abdomen & pelvis w/o contrast material Jae Baldwin MD Work Phone: Start: 05-25-2025 End: 05-25-2025 Comprehensive metabolic panel Jae campos MD Work Phone: Start: 02-24-2025 Radex hand minimum 3 views Farida eastno DO Work Phone: Start: 02-16-2025 Ct abdomen & pelvis w/contrast material Eliana Palomo Gian [employer] Work Phone: Start: 02-16-2025 Basic metabolic panel calcium total Eliana Stanleyer [employer] Work Phone: Start: 01-23-2025 Esophagogastroduodenoscopy transoral diagnostic Ligia Kerns RN Work Phone: Start: 01-05-2025 Esophagoscp rig transoral hypopharynx crv esoph R Kassidy Jacobson MD Work Phone: Start: 12-24-2024 Radiologic exam chest 2 views Eliana Palomo Gian [employer] Work Phone: Start: 12-05-2024 Ct thorax w/contrast material Dmitry deras MD Work Phone: Start: 12-05-2024 Comprehensive metabolic panel Dmitry deras MD Work Phone: Start: 11-30-2024 Ct thoracic spine w/o contrast material Sid Sinclair PA-C Work Phone: Start: 11-30-2024 End: 11-30-2024 Radex elbow complete minimum 3 views Dmitry Tierney MD Work Phone: Start: 08-28-2024 H/O splenectomy S/P splenectomy SARAH Jacobson MD Work Phone: Start: 08-22-2024 Radiologic exam chest 2 views R Kassidy Jacobson MD Work Phone: Start: 08-22-2024 Antibody screen ELIANA SPRINGER Comment on above: Order Comment: Specimen Type: BLOOD SPEC IMENOrdering Facility: [facility] Address: [address] [place] [address] Performed By: #### T SCR30 ####CC [facility] [id number] [address] Start: 08-11-2024 Ct thorax w/o contrast material M Michael Mcgarry [employer] Work Phone: Start: 08-08-2024 Radex ribs uni w/posteroant ch minimum 3 views Tegan Henao Arita DO Work Phone: Start: 08-05-2024 Comprehensive metabolic panel Joycelyn Ross dd, MD Work Phone: Start: 07-28-2024 End: 07-28-2024 Gluc bld gluc mntr dev cleared fda spec home use Zaira Stewart MD Work Phone: Start: 07-28-2024 Esophagoscp rig transoral hypopharynx crv robert Kerns RN Work Phone: Start: 07-14-2024 Assay of thyroid stimulating hormone tsh Eliana Springer [employer] Work Phone: Start: 05-24-2024 Adult depression screening assessment Ibeth HANLEY Work Phone: Start: 04-26-2024 End: 04-26-2024 Radex spine thoracic 2 views Max matta MD Work Phone: Start: 04-23-2024 Creatinine blood Tommy Guerra DO Work Phone: Start: 03-17-2024 Radiologic exam chest single view Ivania Arita DO Work Phone: Start: 03-17-2024 Ecg routine ecg w/least 12 lds w/i&r Tegan Arita DO Work Phone: Start: 03-17-2024 End: 03-17-2024 Basic metabolic panel calcium total Tegan Arita DO Work Phone: Start: 11-30-2023 Urinalysis microscopic only Eliana Palomo St [facility] [employer] Work Phone: Start: 11-30-2023 Urnls dip stick/tablet rgnt auto w/o microscopy Eliana Palomo Gian [employer] Work Phone: Start: 11-30-2023 Assay of iron Eliana Palomo Gian [employer] Work Phone: Start: 10-02-2023 Colonoscopy Eliana Springer [employer] Work Phone: Start: 07-06-2023 Myocardial spect multiple studies Uli Strong MD Work Phone: Start: 12-15-2019 Infectious agent dna/rna influenza 1st 2 types LILLIAN REID Start: 12-09-2019 Radiologic exam chest 2 views LILLIAN FUNES Start: 11-17-2019 Radex hip unilateral with pelvis 2-3 views LILLIAN REID Start: 11-17-2019 Radiologic exam knee complete 4/more views LILLIAN REID Start: 11-17-2019 Hgb glycosylated device cleared fda home use LILLIAN REID Start: 03-01-2018 Lipid 1996 panel - Serum or Plasma Jorge Bardales MD Work Phone: Start: 07-03-2012 Colonoscopy Eliana Springer [employer] Work Phone: Plan of Treatment Date Care Activity Detail Author Start: 2034 Pneumococcal 0-64 years Vaccine (3 - PPSV23 if available, else PCV20) Pneumococcal 0-64 years Vaccine (3 - PPSV23 if available, else PCV20) [facility] Start: 2034 Pneumococcal 0-64 years Vaccine (3 - PPSV23 or PCV20) Pneumococcal 0-64 years Vaccine (3 - PPSV23 or PCV20) [facility] Start: 2034 Pneumococcal 0-64 years Vaccine (3 of 3 - PPSV23 or PCV20) Pneumococcal 0-64 years Vaccine (3 of 3 - PPSV23 or PCV20) [facility] Start: 2034 Pneumococcal vaccination Pneumococcal Vaccine (3 of 3 - PPSV23 or PCV20) [facility] Start: 08-22-2034 DTaP/Tdap/Td vaccine (3 - Td or Tdap) DTaP/Tdap/Td vaccine (3 - Td or Tdap) [facility] Start: 08-22-2034 Urine microalbumin profile DTaP,Tdap,Td Vaccine (3 - Td or Tdap) [facility] Start: 06-18-2027 Diabetes Screening Diabetes Screening [facility] Start: 10-02-2026 Screening for malignant neoplasm of colon [facility] Start: 06-18-2026 GFR test (Diabetes, CKD 3-4, OR last GFR 15-59) GFR test (Diabetes, CKD 3-4, OR last GFR 15-59) [facility] Start: 06-02-2026 Lipid panel Lipids [facility] Start: 05-31-2026 Depression Monitoring Depression Monitoring [facility] Start: 05-30-2026 GFR test (Diabetes, CKD 3-4, OR last GFR 15-59) GFR test (Diabetes, CKD 3-4, OR last GFR 15-59) [facility] Start: 05-30-2026 Screening for malignant neoplasm of colon [facility] Start: 05-27-2026 GFR test (Diabetes, CKD 3-4, OR last GFR 15-59) GFR test (Diabetes, CKD 3-4, OR last GFR 15-59) [facility] Start: 02-26-2026 Depression Monitoring Depression Monitoring [facility] Start: 02-16-2026 GFR test (Diabetes, CKD 3-4, OR last GFR 15-59) GFR test (Diabetes, CKD 3-4, OR last GFR 15-59) [facility] Start: 01-30-2026 Depression Monitoring Depression Monitoring [facility] [employer] Start: 12-24-2025 Depression Monitoring Depression Monitoring [facility] Start: 12-15-2025 Depression Monitoring Depression Monitoring [facility] Start: 12-05-2025 GFR test (Diabetes, CKD 3-4, OR last GFR 15-59) GFR test (Diabetes, CKD 3-4, OR last GFR 15-59) [facility] Start: 08-22-2025 BP Controlled (<130/80) BP Controlled (<130/80) [facility] Start: 08-22-2025 zzBP Controlled (<130/80) (Retired) zzBP Controlled (<130/80) (Retired) [facility] Start: 08-20-2025 End: 08-20-2025 Patient encounter procedure 08/20/2025 11:00 AM EDT Office Visit [facility] Part of [address] [place] [address] Octavio Chatterjee MD [address] [place] [address], [address] [place] [address] one year PSA [facility] Comment on above: one year PSA Start: 08-05-2025 GFR test (Diabetes, CKD 3-4, OR last GFR 15-59) GFR test (Diabetes, CKD 3-4, OR last GFR 15-59) [facility] Start: 07-24-2025 Depression Monitoring Depression Monitoring [facility] Start: 07-24-2025 Hepatitis B vaccine (1 of 3 - 19+ 3-dose series) Hepatitis B vaccine (1 of 3 - 19+ 3-dose series) [facility] Comment on above: Postponed from 1988 (Patient Refus ed) Start: 07-07-2025 End: 07-07-2025 ambulatory 07/07/2025 7:40 AM EDT [facility] Endocrinology [address] [place] [address] Kathy Bravo MD [address] [place], [place] [id number] Jul 07 virtual Endocrinology Comment on above: Jul 07 virtual Start: 06-25-2025 End: 06-25-2025 Patient encounter procedure 06/25/2025 3:00 PM EDT Office Visit [facility] [address] [place] [address] Octavio Chatterjee MD [address] [facility], [address] [place] [address] 6w symptom check [facility] Comment on above: 6w symptom check Start: 06-22-2025 Influenza vaccination [facility] Start: 06-19-2025 Annual Wellness Visit (Medicare) Annual Wellness Visit (Medicare) [facility] Start: 06-18-2025 Depression Monitoring Depression Monitoring [facility] [employer] [facility] Start: 06-18-2025 Hemoglobin A1c measurement A1C test (Diabetic or Prediabetic) [facility] Start: 06-03-2025 End: 05-27-2026 CBC W Auto Differential panel - Blood CBC with Auto Differential Lab Routine Acute pneumonia Expected: 06/03/2025, Expires: 05/27/2026 [facility] Comment on above: Expected: 06/03/2025, Expires: Start: 06-03-2025 End: 05-27-2026 Comprehensive metabolic 2000 panel - Serum or Plasma Comprehensive Metabolic Panel Lab Routine Acute pneumonia Expected: 06/03/2025, Expires: 05/27/2026 [facility] Comment on above: Expected: 06/03/2025, Expires: Start: 06-02-2025 End: 06-02-2025 Patient encounter procedure 06/02/2025 3:20 PM EDT Office Visit [facility] [address] [place] [id number] Eliana Springer, [employer] [address] [place] [facility] [place] [address] [facility] [place] Start: 05-24-2025 Adult BMI Screening Adult BMI Screening [facility] [employer] [facility] Start: 05-24-2025 Depression Screening Depression Screening [facility] [employer] Start: 05-24-2025 Tobacco Screening Tobacco Screening [facility] [employer] Start: 05-22-2025 Influenza vaccination [facility] [employer] Start: 04-23-2025 GFR test (Diabetes, CKD 3-4, OR last GFR 15-59) GFR test (Diabetes, CKD 3-4, OR last GFR 15-59) [facility] [employer] Start: 04-13-2025 Glaucoma screening Diabetic retinal exam [facility] [employer] Comment on above: Postponed from 1987 (Not Indicated ) Start: 04-10-2025 End: 04-10-2025 ambulatory 04/10/2025 3:40 PM EDT [facility] Endocrinology [address] [place] [address] Kathy Bravo MD [address] [place], [place] [phone] April 10 340 virtual on [place] template, thanks! Endocrinology Comment on above: April 10 340 virtual on [employer]! Start: 04-03-2025 Depression Monitoring Depression Monitoring [facility] [employer] Start: 04-03-2025 Diabetic foot examination Diabetic foot exam [facility] [employer] Comment on above: Postponed from 1979 (Not Indicated ) Start: 04-03-2025 DTaP/Tdap/Td vaccine (2 - Td or Tdap) DTaP/Tdap/Td vaccine (2 - Td or Tdap) [facility] [employer] Comment on above: Postponed from 12/07/2023 (Patient Refus ed) Start: 04-03-2025 Urine screening for protein Diabetic Alb to Cr ratio (uACR) test [facility] [employer] Comment on above: Postponed from 1987 (Not Indicated ) Start: 03-17-2025 GFR test (Diabetes, CKD 3-4, OR last GFR 15-59) GFR test (Diabetes, CKD 3-4, OR last GFR 15-59) [employer] Start: 02-24-2025 Adult BMI Screening Adult BMI Screening [facility] Start: 02-24-2025 Tobacco Screening Tobacco Screening [facility] Start: 02-20-2025 End: 02-20-2025 Patient encounter procedure 02/20/2025 10:20 AM EDT Office Visit Endocrinology [address] [phone] Kathy Bravo MD [address] [place] [address] f/u Endocrinology Comment on above: f/u Start: 02-12-2025 Depression Monitoring Depression Monitoring [employer] Start: 02-07-2025 Lipid panel Lipids [employer] Start: 01-23-2025 End: 01-23-2025 Patient encounter procedure 01/23/2025 4:00 PM EDT Appointment Gastroenterology [address] [phone] Dariusz Pratt MD [address] [place] [address] IPMN (intraductal papillary mucinous neoplasm) [D49.0] Gastroenterology Comment on above: IPMN (intraductal papillary mucinous emmanuel plasm) [D49.0] Start: 01-20-2025 Adult BMI Screening Adult BMI Screening [facility] Start: 01-20-2025 Tobacco Screening Tobacco Screening [facility] Start: 01-13-2025 Adult BMI Screening Adult BMI Screening [facility] Start: 01-13-2025 Tobacco Screening Tobacco Screening [facility] Start: 01-10-2025 Depression Monitoring Depression Monitoring [employer] Start: 01-05-2025 End: 01-05-2025 Patient encounter procedure Gastroenterology Start: 12-24-2024 End: 12-24-2024 ambulatory 12/24/2024 10:00 AM EST [facility]ology [address] [place] [address] Kathy Bravo MD [address] [place] [address] f/u, SWITCHED TO VIRTUAL OK'D BY DR. BRAVO Endocrinology Comment on above: f/u, SWITCHED TO VIRTUAL OK'D BY DR. EUNICE Meek Start: 12-23-2024 Adult BMI Screening Adult BMI Screening [facility] Start: 12-23-2024 Tobacco Screening Tobacco Screening [facility] Start: 12-22-2024 End: 12-22-2024 Patient encounter procedure [facility] Comment on above: 6 month check awv and 6 month chec k-need album urine ordered Start: 12-19-2024 Hemoglobin A1c measurement HbA1C [facility] Start: 12-19-2024 End: 12-19-2024 Patient encounter procedure 12/19/2024 10:00 AM EST Office Visit Endocrinology [address] [place] [address] Kathy Bravo MD [address] [place] [address] f/u Endocrinology Comment on above: f/u Start: 2024 Prostate specific antigen measurement Prostate Cancer Screening Discussion [facility] Start: 11-26-2024 Adult BMI Screening Adult BMI Screening [facility] Start: 11-26-2024 Tobacco Screening Tobacco Screening [facility] Start: 11-13-2024 Depression Monitoring Depression Monitoring [facility] [employer] Start: 10-31-2024 End: 10-31-2024 Follow-up encounter 10/31/2024 4:20 PM EST [facility] Endocrinology [address] [place] [address] Kathy Bravo MD [address] [place] [address] Bravo Endocrinology Comment on above: follow up per Dr. Bravo Start: 10-24-2024 Adult BMI Screening Adult BMI Screening [facility] Start: 10-24-2024 Tobacco Screening Tobacco Screening [facility] Start: 10-22-2024 Annual Wellness Visit (Medicare Advantage) Annual Wellness Visit (Medicare Advantage) [facility] [employer] Start: 10-22-2024 Medicare Advantage Annual Wellness Visit Medicare Advantage Annual Wellness Visit [facility] Start: 10-17-2024 Meningococcal Conjugate Vaccine (2 - Risk 2-dose series) Meningococcal Conjugate Vaccine (2 - Risk 2-dose series) [facility] Start: 10-07-2024 GFR test (Diabetes, CKD 3-4, OR last GFR 15-59) GFR test (Diabetes, CKD 3-4, OR last GFR 15-59) [facility] Start: 10-07-2024 End: 10-07-2024 Nursing evaluation of patient and report 10/07/2024 12:30 PM EST Nurse Visit Diabetic Education Main X20 [address] [place] [address] [place] [address] [place] [address] [employer] Diabetic Education Main X20 Comment on above: [employer] Start: 10-02-2024 End: 10-02-2024 ambulatory 10/02/2024 12:30 PM EST [facility] Diabetic Education [facility] [address] [place] [address] [place] [address] [place] [address] Pre-pump Diabetic Education [facility] Comment on above: Pre-pump Start: 09-30-2024 End: 09-30-2024 Patient encounter procedure 09/30/2024 10:45 AM EST Office Visit General Surgery [address] [address] [place] [address] [place] [address] postop General Surgery Comment on above: postop Start: 09-19-2024 Meningococcal B Vaccine (2 of 5 - Increased Risk Bexsero 3-dose series) Meningococcal B Vaccine (2 of 5 - Increased Risk Bexsero 3-dose series) [facility] Start: 09-19-2024 Meningococcal B Vaccine: Consider Based On Risk (2 of 4 - Increased Risk Bexsero 2-dose series) Meningococcal B Vaccine: Consider Based On Risk (2 of 4 - Increased Risk Bexsero 2-dose series) [facility] Start: 08-28-2024 End: 08-28-2024 Admission to same day surgery center 08/28/2024 12:15 PM EST - 08/28/2024 5:45 PM EST Surgery Admitting [address] [place] [address] [place] [address] [place] [address] EXPLORATORY LAPAROTOMY Admitting Comment on above: EXPLORATORY LAPAROTOMY Start: 08-28-2024 End: 08-28-2024 Anesthesia consultation 08/28/2024 12:15 PM EST Anesthesia Event Admitting [address] [place] [address] Harjinder Craig, Research Coordinator Admitting Start: 08-28-2024 End: 08-28-2024 Exploratory laparotomy celiotomy w/wo biopsy spx [facility] Start: 08-28-2024 Subsequent hospital visit by physician 08/28/2024 12:15 PM EST Hospital Encounter Admitting [address] [place] [address] [place] [address] [place] [address] IPMN (intraductal papillary mucinous neoplasm) [D49.0] Admitting Comment on above: IPMN (intraductal papillary mucinous emmanuel plasm) [D49.0] Start: 08-22-2024 End: 08-22-2024 Nursing evaluation of patient and report 08/22/2024 1:30 PM EDT Nurse Visit General Surgery [address] [phone] Ligia Kerns, [facility] [address] [address] Pt Education General Surgery Comment on above: Pt Education Start: 08-22-2024 End: 08-22-2024 ambulatory 08/22/2024 12:30 PM EDT Results Only Cardiology [address] [address] Pre Op Cardiology Comment on above: Pre Op Start: 08-22-2024 End: 08-22-2024 Patient encounter procedure Main [place] A[facility] Draw Station Comment on above: Pre Op Start: 08-22-2024 End: 08-22-2024 Anesthesia consultation 08/22/2024 11:20 AM EDT PAT Pre Anesthesia [address] [place] [address] 7, Pacc Main [address] [place] [address] PRE OP Pre Anesthesia Comment on above: PRE OP Start: 08-20-2024 End: 08-20-2024 Patient encounter procedure 08/20/2024 11:00 AM EDT Office Visit [facility] [address] [place] [address] Octavio Chatterjee MD [address] [facility], [address] [place] [address] 4-6 week Follow up-PSA reminder 07/09 aw [facility] Comment on above: 4-6 week Follow up-PSA reminder 07/09 aw Start: 08-14-2024 End: 11-13-2024 CBC W Auto Differential panel - Blood COMPLETE BLOOD COUNT AND DIFFERENTIAL Lab Routine IPMN (intraductal papillary mucinous neoplasm) Preoperative examination Expected: 08/14/2024 (Approximate), Expires: 11/13/2024 [facility] Comment on above: Expected: 08/14/2024 (Approximate), Expi res: 11/13/2024 Start: 08-14-2024 End: 11-13-2024 Comprehensive metabolic 2000 panel - Serum or Plasma COMPREHENSIVE METABOLIC PANEL Lab Routine IPMN (intraductal papillary mucinous neoplasm) Preoperative examination Expected: 08/14/2024 (Approximate), Expires: 11/13/2024 [facility] Comment on above: Expected: 08/14/2024 (Approximate), Expi res: 11/13/2024 Start: 08-14-2024 End: 11-13-2024 CONFIRM BLOOD TYPE CONFIRM BLOOD TYPE Blood Bank Routine IPMN (intraductal papillary mucinous neoplasm) Preoperative examination Expected: 08/14/2024, Expires: 11/13/2024 [facility] Comment on above: Expected: 08/14/2024, Expires: Start: 08-14-2024 End: 11-13-2024 TYPE AND SCREEN,30 DAY TYPE AND SCREEN,30 DAY Blood Bank Routine IPMN (intraductal papillary mucinous neoplasm) Preoperative examination Expected: 08/14/2024, Expires: 11/13/2024 [facility] Comment on above: Expected: 08/14/2024, Expires: Start: 08-09-2024 Hemoglobin A1c measurement A1C test (Diabetic or Prediabetic) [facility] Start: 08-09-2024 Lipid panel Lipids [facility] Start: 08-04-2024 End: 08-04-2024 Patient encounter procedure 08/04/2024 8:00 [place] [address] Diagnostic [facility] Comment on above: Diagnostic Start: 07-28-2024 End: 07-28-2024 Patient encounter procedure 07/28/2024 7:30 AM EDT Appointment Gastroenterology [address] [phone] Sheyla Mensah MD [address] [phone] Type: Gastroenterology Comment on above: Type: Start: 07-22-2024 End: 07-22-2024 Patient encounter procedure 07/22/2024 3:00 PM EDT Office Visit General Surgery [address] [phone] [place] [address] [phone] panc cyst General Surgery Comment on above: panc cyst Start: 07-22-2024 End: 10-21-2024 Cancer Ag 19-9 [Units/volume] in Serum or Plasma [facility] Work Phone: Comment on above: Expected: 07/22/2024, Expires: Start: 07-17-2024 End: 07-17-2024 Patient encounter procedure 07/17/2024 1:00 PM EDT Office Visit [facility] Part of [facility] [address] [place] [address] Octavio Chatterjee MD [address] [facility], [address] [place] [address] 4-6 week Follow up-PSA reminder 07/09 aw [facility] Part of [facility] Comment on above: 4-6 week Follow up-PSA reminder 07/09 aw Start: 07-12-2024 Hepatitis B vaccine (1 of 3 - 3-dose series) Hepatitis B vaccine (1 of 3 - 3-dose series) [facility] Comment on above: Postponed from 1969 (Patient Refus ed) Start: 06-22-2024 Covid-19 Vaccine ( season) Covid-19 Vaccine ( season) [facility] Start: 06-22-2024 Influenza vaccination [facility] Start: 06-21-2024 Depression Monitoring Depression Monitoring [facility] Start: 05-22-2024 Influenza vaccination Flu vaccine (#1) [facility] Start: 05-22-2024 End: 05-22-2024 Patient encounter procedure 05/22/2024 12:30 PM EDT Office Visit [facility] [address] [place] [address] Lillian Reid MD [address] [place] [address] re-est care [facility] Comment on above: re-est care Start: 05-13-2024 End: 05-13-2024 Patient encounter procedure 05/13/2024 2:20 PM EDT Office Visit [facility] [address] [place] [phone] Eliana Springer, [employer] - [employer] AND [employer] WORKER [address] [place] [address] 6 months and awv [facility] [place] Comment on above: 6 months and awv Start: 04-09-2024 End: 04-09-2024 Patient encounter procedure [facility] Start: 03-19-2024 End: 03-19-2024 Patient encounter procedure 03/19/2024 2:45 PM EDT Office Visit [facility] [address] [place] [address] [address] [place] [address] Slime Romano, [employer]-P[employer] AND [employer] M[employer] WORKER [address] [facility] [address] [place] [address] [facility] Start: 02-25-2024 End: 02-24-2025 XR Cervical spine Views X-ray spine cervical 3 views or less Imaging Routine Cervical radiculitis Expected: 02/25/2024, Expires: 02/24/2025 [facility] Work Phone: Comment on above: Expected: 02/25/2024, Expires: Start: 02-25-2024 End: 02-25-2024 Patient encounter procedure 02/25/2024 12:30 PM EDT Office Visit [facility] [address] [place] [address] [address] [place] [address] Joana Stratton MD [address] [place] [address] [facility] Start: 01-21-2024 End: 01-21-2024 Patient encounter procedure 01/21/2024 12:50 PM EDT Office Visit [facility] [address] [place] [address] [address] [place] [address] Joana Stratton MD [address] [place] [address] [facility] Start: 12-24-2023 End: 12-24-2023 Patient encounter procedure 12/24/2023 1:00 PM EST Office Visit [facility] [address] [phone] Joana Stratton MD [address] [place] [address] [facility] Start: 12-07-2023 DTaP,Tdap and Td Vaccines (2 - Td or Tdap) DTaP,Tdap and Td Vaccines (2 - Td or Tdap) [facility] Start: 12-07-2023 DTaP/Tdap/Td vaccine (2 - Td or Tdap) DTaP/Tdap/Td vaccine (2 - Td or Tdap) [facility] Start: 12-07-2023 Urine microalbumin profile DTaP,Tdap,Td Vaccine (2 - Td or Tdap) [facility] Start: 11-26-2023 End: 11-26-2023 Admission to same day surgery center 11/26/2023 11:00 AM EST - 11/26/2023 11:10 AM EST Surgery [address] [phone] Joana Stratton MD [address] [place] [address] #2 Bilateral Thoracic Medial Branch Block T7-8 and T8-9 [71065 (CPT )] [facility] Surgery Comment on above: #2 Bilateral Thoracic Medial Branch Bloc k T7-8 and T8-9 [64628 (CPT )] Start: 11-26-2023 End: 11-26-2023 Njx dx/ther agt pvrt facet jt crv/thrc 1 level INJECTION BLOCK NERVE MEDIAL BRANCH Thoracic spondylosis without myelopathy 11/26/2023 11:00 AM EST [facility] Start: 11-26-2023 End: 11-26-2023 Patient encounter procedure 11/26/2023 11:00 AM EST Procedure visit [facility] [address] [phone] [facility] Start: 11-26-2023 Subsequent hospital visit by physician 11/26/2023 11:00 AM EST Hospital Encounter [facility] Surgery [address] [place] [phone] Joana Stratton MD [address] [address] [facility] Start: 11-21-2023 End: 11-21-2023 Patient encounter procedure 11/21/2023 2:30 PM EST Office Visit [facility] [address] [place] [phone] Slime Romano, [employer] [address] [place] [phone] [facility] Start: 10-22-2023 Annual Wellness Visit (Medicare Advantage) Annual Wellness Visit (Medicare Advantage) [facility] Start: 07-12-2023 End: 07-12-2023 Patient encounter procedure [facility] Comment on above: 1 month f/u establish care Start: 07-09-2023 End: 07-09-2023 Patient encounter procedure 07/09/2023 2:40 PM EDT Office Visit [facility] [address] [place] [phone] Eliana Springer, [employer] [address] [place] [address] right ear impacted painful and muffled [facility] Comment on above: right ear impacted painful and muffled Start: 06-29-2023 End: 06-29-2023 Patient encounter procedure 06/29/2023 Office Visit Cardiology Uli Strong MD [address] [place] [address] [facility]OLOG[facility] Start: 06-26-2023 End: 06-26-2023 Patient encounter procedure 06/26/2023 Office Visit Gastroenterology She Hopson, [employer] [facility] [address] [place] [address] [facility] GI Part [facility] Start: 05-22-2023 Influenza vaccination Flu vaccine (#1) [facility] Start: 03-01-2023 Lipid panel Lipid Screening [facility] Start: 07-03-2022 Screening for malignant neoplasm of colon Colonoscopy [facility] Start: 09-01-2021 COVID-19 Vaccine (4 - Booster for Moderna series) COVID-19 Vaccine (4 - Booster for Moderna series) [facility] Start: 09-01-2021 COVID-19 Vaccine (4 - Moderna series) COVID-19 Vaccine (4 - Moderna series) [facility] Start: 08-09-2021 Lipid panel Lipids [facility] Start: 05-24-2021 Hemoglobin A1c measurement A1C test (Diabetic or Prediabetic) [facility] Start: 03-01-2019 Hepatitis B surface antibody level LDL Cholesterol [facility] Start: 2014 Prostate specific antigen measurement Prostate Cancer Screening Discussion [facility] Start: 2014 Screening for malignant neoplasm of colon [facility] Start: 1988 Hepatitis B vaccine (1 of 3 - 19+ 3-dose series) Hepatitis B vaccine (1 of 3 - 19+ 3-dose series) [facility] Start: 1987 Adult BMI Follow Up Plan Adult BMI Follow Up Plan [facility] Start: 1987 Annual PCP Team Chronic Disease Visit Annual PCP Team Chronic Disease Visit [facility] Start: 1987 Anxiety Screening Anxiety Screening [facility] Start: 1987 Depression Screening Depression Screening [facility] Start: 1987 Diabetic foot examination Diabetic Foot Exam [facility] [employer] [employer] Start: 1987 Glaucoma screening Diabetic retinal exam [facility] Start: 1987 Hepatitis C screening Hepatitis C Screening [facility] Start: 1987 HIV screening HIV Screening [facility] Start: 1987 Spirometry Spirometry [facility] Start: 1987 Urine screening for protein Diabetic Alb to Cr ratio (uACR) test [facility] Start: 1981 Depression Screening Depression Screening [facility] Start: 1979 Diabetic foot examination Diabetic foot exam [facility] Start: 1979 Glaucoma screening Dilated Retinal Exam [facility] Start: 1979 Hepatitis B screening Urine Albumin:Creatinine Ratio [facility] Start: 1969 Glaucoma screening Diabetic Ophthalmology Exam [facility] Start: 1969 Hepatitis B vaccine (1 of 3 - 3-dose series) Hepatitis B vaccine (1 of 3 - 3-dose series) [facility] Acapella Acapella Respira tory Care Routine 4X Daily until discontinued starting 05/26/2025 [facility] [employer] Comment on above: 4X Daily until discontinued starting 02/2025 End: 01-20-2025 Benzodiazepine, urine, qualitative Benzodiazepine, urine, qualitative Lab Routine Postlaminectomy syndrome, lumbar region Encounter for long-term opiate analgesic use 1 Occurrences starting 01/21/2024 until 01/20/2025 [employer] Work Phone: Comment on above: 1 Occurrences starting 01/21/2024 until 01/20/2025 Benzodiazepines [Presence] in Urine Benzodiazepine, urine, qualitative Lab Routine Postlaminectomy syndrome, lumbar region Encounter for long-term opiate analgesic use 01/21/2024 6:17 PM EDT [facility] End: 06-18-2025 Blood Culture 1 [employer] Comment on above: One Time for 1 Occurrences starting 05/23 until 06/18/2025 End: 05-30-2025 CBC W Auto Differential panel - Blood CBC auto differential Lab Routine Daily for 5 Days starting 05/26/2025 until 05/30/2025, 2 completed [employer] Comment on above: Daily for 5 Days starting 05/26/2025 unt il 05/30/2025, 2 completed End: 05-30-2025 Comprehensive Metabolic Panel w/ Reflex to MG Comprehensive Metabolic Panel w/ Reflex to MG Lab Routine Daily for 5 Days starting 05/26/2025 until 05/30/2025, 2 completed [employer] Comment on above: Daily for 5 Days starting 05/26/2025 unt il 05/30/2025, 2 completed End: 04-23-2024 CT Cervical spine W contrast IV [employer] Work Phone: Comment on above: 1 Occurrences starting 04/23/2024 until 04/23/2024 CT Chest WO contrast CT CHEST WO CONTRAST Imaging STAT 08/11/2024 1:05 PM EDT [facility] Culture, Blood 1 Culture, Blood 1 Microbiology STAT 05/26/2025 7:35 AM EDT [facility] Culture, Blood 2 Culture, Blood 2 Microbiology STAT 05/26/2025 7:52 AM EDT [facility] End: 06-18-2025 Culture, Blood 2 [facility] Comment on above: One Time for 1 Occurrences starting 05/23 until 06/18/2025 End: 11-27-2024 Culture, Urine [email or web address] Comment on above: 1 Occurrences starting 11/27/2024 until 11/27/2024 End: 12-16-2024 Culture, Urine [email or web address] [facility] Comment on above: 1 Occurrences starting 12/16/2024 until 12/16/2024 End: 05-13-2025 Culture, Urine [email or web address] [facility] Comment on above: 1 Occurrences starting 05/13/2025 until 05/13/2025 End: 08-14-2025 ECG COMPLETE ECG COMPLETE ECG Routine IPMN (intraductal papillary mucinous neoplasm) Preoperative examination 1 Occurrences starting 08/14/2024 until 08/14/2025 [facility] Comment on above: 1 Occurrences starting 08/14/2024 until 08/14/2025 End: 07-22-2025 EGD - THERAPEUTIC, EUS, OR TUBE INTERVENTIONS EGD - THERAPEUTIC, EUS, OR TUBE INTERVENTIONS Endoscopy Routine Cyst and pseudocyst of pancreas 1 Occurrences starting 07/22/2024 until 07/22/2025 [facility] Comment on above: 1 Occurrences starting 07/22/2024 until 07/22/2025 End: 12-23-2025 EGD DIAGNOSTIC EGD DIAGNOSTIC Endoscopy Routine IPMN (intraductal papillary mucinous neoplasm) 1 Occurrences starting 12/23/2024 until 12/23/2025 [facility] Work Phone: Comment on above: 1 Occurrences starting 12/23/2024 until 12/23/2025 End: 01-07-2026 EGD DIAGNOSTIC EGD DIAGNOSTIC Endoscopy Routine IPMN (intraductal papillary mucinous neoplasm) 1 Occurrences starting 01/07/2025 until 01/07/2026 [facility] Work Phone: Comment on above: 1 Occurrences starting 01/07/2025 until 01/07/2026 EKG 12 Lead EKG 12 Lead ECG STAT 03/17/2024 2:02 PM EDT [employer] EKG 12 Lead EKG 12 Lead ECG STAT 06/18/2025 4:28 PM EDT [employer] End: 06-21-2023 Gastrointestinal Panel, Molecular [employer] Comment on above: 1 Occurrences starting 06/21/2023 until 06/21/2023 End: 12-16-2024 Gastrointestinal Panel, Molecular [employer] Comment on above: 1 Occurrences starting 12/16/2024 until 12/16/2024 Glucose [Mass/volume ] in Serum or Plasma POCT glucose Point of Care Testing Routine 4X Daily (AC & HS) until discontinued starting 05/26/2025 [employer] Comment on above: 4X Daily (AC & HS) until discontinued st arting 05/26/2025 Glucose [Mass/volume ] in Serum or Plasma [employer] Comment on above: 4X Daily (AC & HS) until discontinued st arting 05/26/2025 As Needed until disc ontinued starting 05/26/2025 INJECTION BLOCK NERV E MEDIAL BRANCH INJECTION BLOCK NERVE MEDIAL BRANCH Thoracic spondylosis [facility] [employer] End: 07-14-2024 [employer] Comment on above: 1 Occurrences starting 07/14/2024 until 07/14/2024 Lupus Anticoagulant Lupus Antico agulant Lab Routine Other fatigue Chronic pain syndrome 11/30/2023 9:42 AM EST [employer] Oxygen therapy [Mini [facility] Data Set] Initiate Oxygen Therapy Protocol Respiratory Care Routine As Needed until discontinued starting 05/26/2025 [employer] Comment on above: As Needed until discontinued starting PANC ELASTASE, FECAL PANC ELASTA SE, FECAL Lab Routine Cyst and pseudocyst of pancreas 07/22/2024 4:18 PM EDT [facility] Positive Expiratory Pressure Therapy Positive Expiratory Pressure Therapy Respiratory Care Routine 0800, 1200, 1600, 2000 (respiratory use only) until discontinued starting 05/26/2025 [employer] Comment on above: 0800, 1200, 1600, 2000 (respiratory use only) until discontinued starting 05/26/2025 End: 07-14-2024 PSA screening [employer] Work Phone: Comment on above: 1 Occurrences starting 07/14/2024 until 07/14/2024 RADIOFREQUENCY ABLAT ION SPINAL RADIOFREQUENCY ABLATION SPINAL Postlaminectomy syndrome, lumbar region Encounter for long-term opiate analgesic use Thoracic spondylosis without myelopathy [facility] REFER FOR ADMIT INTERVIEW REFER FOR ADMIT INTERVIEW Procedures Routine IPMN (intraductal papillary mucinous neoplasm) Preoperative examination Ordered: 08/14/2024 [facility] Work Phone: Comment on above: Ordered: 08/14/2024 End: 06-18-2025 Respiratory Panel, Molecular, with COVID-19 (Restricted: peds pts or suitable admitted adults) [employer] Comment on above: One Time for 1 Occurrences starting 05/23 until 06/18/2025 Spirometry panel Incentive adam metry RT Respiratory Care Routine Every 2hr while awake until discontinued starting 08/08/2024 [employer] Comment on above: Every 2hr while awake until discontinued starting 08/08/2024 End: 11-30-2024 Splint application Splint application Procedures STAT One Time for 1 Occurrences starting 11/30/2024 until 11/30/2024 [employer] Comment on above: One Time for 1 Occurrences starting 06/2025 until 11/30/2024 Tissue Pathology bio psy report [facility] Work Phone: Comment on above: Release Upon Ordering for 1 Occurrences starting 01/23/2025, 1 completed End: 01-20-2025 Unlisted Lab Test Unlisted Lab Test Lab Routine Postlaminectomy syndrome, lumbar region Encounter for long-term opiate analgesic use 1 Occurrences starting 01/21/2024 until 01/20/2025 [employer] Comment on above: 1 Occurrences starting 01/21/2024 until 01/20/2025 Unlisted Lab Test UR INE DRUG SCREEN;PAIN MANAGEMENT Unlisted Lab Test URINE DRUG SCREEN;PAIN MANAGEMENT Lab Routine Postlaminectomy syndrome, lumbar region Encounter for long-term opiate analgesic use 01/21/2024 6:17 PM EDT [facility] End: 08-05-2024 Urinalysis with Microscopic Urinalysis with Microscopic Lab STAT One Time for 1 Occurrences starting 08/05/2024 until 08/05/2024 [employer] Comment on above: One Time for 1 Occurrences starting 07/22 until 08/05/2024 End: 07-14-2024 Vitamin B12 & Folate [employer] Comment on above: 1 Occurrences starting 07/14/2024 until 07/14/2024 End: 07-14-2024 Vitamin D 25 Hydroxy [employer] Comment on above: 1 Occurrences starting 07/14/2024 until 07/14/2024 End: 09-13-2025 XR Chest PA and Lateral XR CHEST 2V FRONTAL/LAT Radiology Routine IPMN (intraductal papillary mucinous neoplasm) Preoperative examination 1 Occurrences starting 08/14/2024 until 09/13/2025 [facility] Comment on above: 1 Occurrences starting 08/14/2024 until 09/13/2025 XR Elbow - left 3 Views XR ELBOW LEFT (MIN 3 VIEWS) Imaging STAT 11/30/2024 2:53 PM EST [employer] XR Hand - left 3 Views XR HAND L EFT (MIN 3 VIEWS) Imaging STAT 11/30/2024 2:53 PM EST [employer] Work Phone: Immunizations Immunization Date Immunization Notes Care Provider Charito crzu 08-22-2024 DTP-Haemophilus influenzae type b conjugate vaccine [facility] 7 Work Phone: [facility] 08-22-2024 meningococcal (MenACWY-TT) vaccine, quadrivalent (MENQUADFI) Pac 7 Work Phone: [facility] 08-22-2024 meningococcal B vacc ine, recombinant, OMV, adjuvanted [facility] Work Phone: [facility] 08-22-2024 pneumococcal conjuga te (PCV20) vaccine, 20 valent (PREVNAR 20) [facility] Work Phone: [facility] Work Phone: 08-14-2023 influenza virus vacc ine, unspecified formulation [employer] Work Phone: [facility] 08-13-2023 Influenza, injectabl e, Madin Allison Canine Kidney, preservative free, quadrivalent [employer] Work Phone: [facility] 07-14-2023 COVID-19, MODERNA, ( formula), (age 12y+), IM, 50mcg/0.5mL [employer] Work Phone: [facility] 07-07-2021 COVID-19, MODERNA BL UE border, Primary or Immunocompromised, (age 12y+), IM, 100 mcg/0.5mL [employer] Work Phone: [facility] 02-01-2021 COVID-19, MODERNA BL UE border, Primary or Immunocompromised, (age 12y+), IM, 100 mcg/0.5mL [employer] Work Phone: [facility] 01-03-2021 COVID-19, MODERNA BL UE border, Primary or Immunocompromised, (age 12y+), IM, 100 mcg/0.5mL [employer] Work Phone: [facility] 08-07-2020 zoster vaccine recombinant [employer] Work Phone: [facility] 06-29-2020 influenza virus vacc ine, unspecified formulation Joycelyn Smith MD Work Phone: [facility] 06-29-2020 influenza, injectabl e, quadrivalent, preservative free Eliana Gian [employer] [facility] Work Phone: [facility] 06-29-2020 influenza, seasonal, injectable Eliana Gian [employer] [facility] Work Phone: [facility] 06-05-2020 zoster vaccine recombinant Eliana Gian [employer] [facility] Work Phone: [facility] 08-01-2019 influenza, injectabl e, quadrivalent, preservative free Eliana Gian [employer] [facility] Work Phone: [facility] 09-17-2018 influenza, injectabl e, quadrivalent, preservative free Eliana Gian [employer] [facility] Work Phone: [facility] 10-01-2017 influenza virus vacc ine, unspecified formulation Joycelyn Smith MD Work Phone: [facility] 10-01-2017 influenza, injectabl e, quadrivalent, contains preservative Eliana Gian [employer] [facility] Work Phone: [facility] 08-06-2017 pneumococcal conjuga te vaccine, 13 valent Eliana Gian [employer] [facility] Work Phone: [facility] 07-07-2017 pneumococcal conjuga te vaccine, 13 valent Eliana Gian [employer] [facility] Work Phone: [facility] 01-17-2017 pneumococcal conjuga te vaccine, 13 valent Ibeth HANLEY Work Phone: [facility] 01-17-2017 pneumococcal polysaccharide vaccine, 23 valent Eliana Gian [employer] [facility] Work Phone: [facility] 12-19-2016 pneumococcal polysaccharide vaccine, 23 valnegar HANLEY Work Phone: [facility] 08-17-2016 influenza virus vacc ine, unspecified formulation Eliana Gian [employer] [facility] Work Phone: [facility] Work Phone: 12-07-2013 tetanus toxoid, redu pierre diphtheria toxoid, and acellular pertussis vaccine, adsorbed Eliana Springer [employer] Work Phone: [facility] 11-01-2010 pneumococcal conjuga te vaccine, 13 valent Eliana Springer [employer] Work Phone: [facility] Payers Date Payer Category Payer Medicare (Managed Care) 1.2. [id number] 15 2024 Medicare [id number] 2024 Medicaid [id number] 15 2023 Medicare [id number]. [id number] 2023 Medicare [id number] [id number] 2022 Unknown [id number] 2019 Medicaid [id number] 2006 Medicare [id number] 1969 Unknown [id number] 2.16.8 40.1.354561.3.579.2.93 1969 Unknown [id number] 2.16.8 40.1.250641.3.579.2.93 1969 Unknown [id number] 2.16.8 40.1.865598.3.579.2.93 1969 Unknown [id number] 2.16.8 40.1.634094.3.579.2.93 1969 Unknown [id number] 2.16.8 40.1.097195.3.579.2.93 1969 Unknown [id number] 2.16.8 40.1.870647.3.579.2.93 1969 Unknown [id number] 2.16.8 40.1.788607.3.579.2.93 1969 Unknown [id number] 2.16.8 40.1.096860.3.579.2.93 1969 Unknown [id number] 2.16.8 40.1.016160.3.579.2.93 1969 Unknown [id number] 2.16.8 40.1.086882.3.579.2.93 1969 Unknown [id number] 2.16.8 40.1.990424.3.579.2.93 1969 Unknown [id number] 2.16.8 40.1.411055.3.579.2.93 1969 Unknown [id number] 2.16.8 40.1.685244.3.579.2.93 1969 Unknown [id number] 2.16.8 40.1.697494.3.579.2.1285 1969 Unknown [id number] 2.16.8 40.1.279717.3.579.2.1285 1969 Unknown [id number] 2.16.8 40.1.568561.3.579.2.1285 1969 Unknown [id number] 2.16.8 40.1.559881.3.579.2.1285 1969 Unknown [id number] 2.16.8 40.1.179767.3.579.2.1285 1969 Unknown [id number] 2.16.8 40.1.128743.3.579.2.1285 1969 Unknown [id number] 2.16.8 40.1.573352.3.579.2.1285 1969 Unknown [id number] 2.16.8 40.1.560597.3.579.2.1285 1969 Unknown [id number] 2.16.8 40.1.114873.3.579.2.1286 1969 Unknown [id number] 2.16.8 40.1.570670.3.579.2.6 1969 Unknown [id number] 2.16.8 40.1.234261.3.579.2.1286 1969 Unknown [id number] 2.16.8 40.1.342853.3.579.2.6 1969 Unknown [id number] 2.16.84 0.1.369516.3.579.2.1285 1969 Unknown [id number] 2.16.840 .1.180669.3.579.2.1285 1969 Unknown [id number] 2.16.8 40.1.780213.3.579.2.6 1969 Unknown [id number] 2.16.8 40.1.882778.3.579.2.1286 1969 Unknown [id number] 2.16. 840.1.461174.3.579.2.2 1969 Unknown [id number] 2.16. 840.1.880924.3.579.2. 1969 Unknown [id number] 2.16. 840.1.907508.3.579.2. 1969 Unknown [id number] 2.16. 840.1.253522.3.579.2.196 1969 Unknown [id number] 2.16. 840.1.247551.3.579.2. 1969 Unknown [id number] 2.16. 840.1.916412.3.579.2. 1969 Unknown [id number] 2.16. 840.1.852468.3.579.2.196 1969 Unknown [id number] 2.16. 840.1.629294.3.579.2. 1969 Unknown [id number] 2.16. 840.1.559463.3.579.2.196 1969 Unknown [id number] 2.16. 840.1.799062.3.579.2.196 1969 Unknown [id number] 2.16.8 40.1.548843.3.579.2.176 1969 Unknown [id number] 2.16.8 40.1.415811.3.579.2.173 1969 Unknown [id number] 2.16.8 40.1.707197.3.579.2.173 1969 Unknown [id number] 2.16.8 40.1.087680.3.579.2.173 1969 Unknown [id number] 2.16.8 40.1.185530.3.579.2.173 1969 Unknown [id number] 2.16.8 40.1.568520.3.579.2.173 1969 Unknown [id number] 2.16.8 40.1.415301.3.579.2.173 1969 Unknown [id number] 2.16.8 40.1.571121.3.579.2.173 1969 Unknown [id number] 2.16.8 40.1.409663.3.579.2.173 1969 Unknown [id number] 2.16.8 40.1.198913.3.579.2.173 1969 Unknown [id number] 2.16.8 40.1.116466.3.579.2.173 1969 Unknown [id number] 2.16.8 40.1.594711.3.579.2.173 1969 Unknown [id number] 2.16.8 40.1.549807.3.579.2.173 1969 Unknown [id number] 2.16.8 40.1.912445.3.579.2.173 1969 Unknown [id number] 2.16.8 40.1.839226.3.579.2.173 1969 Unknown [id number] 2.16.8 40.1.209236.3.579.2.173 1969 Unknown [id number] 2.16.8 40.1.575807.3.579.2.173 1969 Unknown [id number] 2.16.8 40.1.217206.3.579.2.173 1969 Unknown [id number] 2.16.8 40.1.993122.3.579.2.173 1969 Unknown [id number] 2.16.8 40.1.801034.3.579.2.173 Social History Date Type Detail Facility Start: 04-23-2023 End: 08-22-2024 Tobacco smoking status NHIS Never smoked tobacco [facility] [facility] Start: 04-23-2023 End: 08-22-2024 Tobacco use and exposure Smokeless tobacco non-user [facility] [facility] Start: 06-21-2023 End: 01-23-2025 Alcohol intake Ex-drinker (finding) [facility] Start: 04-23-2023 End: 05-19-2023 History SDOH Alcohol Frequency 1 [facility] Start: 05-19-2023 History SDOH Alcohol Std Drinks 0 [facility] Start: 04-23-2023 History SDOH Financial 5 [facility] Start: 04-23-2023 History SDOH Transpo rt Non-Med 2 [facility] Start: 02-04-2018 Alcohol Comment on occasion [facility] Start: 1970 Sex Assigned At Not on file [facility] [employer] Start: 05-19-2023 End: 01-23-2025 History of Social function [employer] [facility] Start: 05-19-2023 End: 01-23-2025 Alcohol Use Disorder Identification Test - Consumption [AUDIT-C] [facility] [facility] How often to you hav e a drink containing alcohol? Never [facility] [facility] Start: 07-14-[address] inks containing alcohol do you have on a typical day? Patient does not drink [facility] (I/We) worried wheth er (my/our) food would run out before (I/we) got money to buy more. Never true [employer] At any time in the p ast 12 months, were you homeless or living in skilled nursing [including now]? No [employer] Tobacco smoking status No Smokin g Status Entered [facility] [employer] [facility] consumption unknown [facility] Start: 10-24-2023 End: 06-18-2025 Alcohol intake Lifetime non-drinker (finding) [facility] Start: 1970 Sex assigned at Male [facility] Start: 12-24-2024 Gender identity Identifies as male gender (finding) [facility] Start: 12-24-2024 Sexual orientation Heterosexual (fin piero) [facility] Start: 12-04-2012 Sex Male (finding) [employer] NEGATED: Highlighted rowStart: ANTOINETTE History of tobacco use Passive smoker [facility] Medical Equipment Procedure Code Equipment Code Equipment Origin al Text Equipment Identifier Dates Use to check sug ars once a day [id number] Start: 08-22-2024 End: 09-19-2024 Use with insulin 5 times daily [id number] Start: 08-22-2024 Use to check sug ars once daily [id number] Start: 08-22-2024 Use to check sug ars once a day [id number] Start: 09-19-2024 Use to check sug ars 4 times daily. [id number] Start: 09-20-2024 Goals Date Patient Goal Desired Activity /State Personal health goal Comment on above: Formatting of this n ote might be different from the original. Would like to start walking dogs again Comment on above: Formatting of this n ote might be different from the original. Would like to start walking dogs again Functional Status Date Assessment Result Facility [email or web address] Clinical Notes 07-05-2023 to 07-07-2025 Kathy Bravo MD - 07/07/2025 7:39 AM EDTTelephone Encounter - Abimbola Raines - 07/01/2025 11:48 AM EDTTelephone Encounter - Abimbola Raines - 07/01/2025 11:48 AM EDTDischarge Instructions Note Date & Type Note [facility] 07-07-2025 Note [facility] 07-07-2025 History of Present illness Narrative Images from the original note were not included. REASON FOR CONSULTATION: Pancreatic diabetes July 07, 2025 Virtual visit I have communicated my name and active licensure. The patient's identity and physical location were verified at the time of this visit. 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 - high stress - going through divorce - special need dog was sent to the [facility] to restore health - he drank a powerade zero and went to the 200s - was waiting to bolus if sugars in double digits before meals - typically waiting until after he started eating to take the bolus Approximate age at diagnosis of diabetes: 2021 Circumstances surrounding the diagnosis:blood work has type 1 diabetes Complications/comorbidities: No complications History of diabetes medications: none Current diabetes medications: Metformin 500 daily Meals and exercise: Mostly carb since staying away fat for IPMN Number of times glucose levels are to be checked: Interpretation: post prandial highs happening Sometimes a bit of low blood sugar PMH: T2DM, IPMN PSH: NA Social History Tobacco Use Smoking status: Never Passive exposure: Never Smokeless tobacco: Never Vaping Use Vaping status: Never Used Substance Use Topics Alcohol use: Not Currently Drug use: Never No family history on file. Current Outpatient Medications Medication Sig insulin lispro (HUMALOG KWIKPEN) 100 unit/mL USE UP TO 30 UNITS DAILY insulin lispro (HUMALOG U-100 INSULIN) 100 unit/mL injection Use up to 70 units in insulin pump daily BAQSIMI 3 mg/actuation nasal spray USE 1 SPRAY IN THE NOSE NEEDED. MAY REPEAT AFTER 15 MINUTES USING A NEW DEVICE IF THERE IS NO RESPONSE. tramadol HCl (TRAMADOL ORAL) Take by mouth. promethazine (PHENERGAN) 25 mg tablet Take 1 tablet by mouth every 8 hours as needed (for nausea). blood sugar diagnostic (BLOOD GLUCOSE TEST) test strip Use to check sugars 4 times daily. acetaminophen (TYLENOL) 325 mg tablet Take 2 [...] 4 tablets by mouth as needed. Insulin [place], Disposable, (BD ULTRAFINE III MINI PEN) 31 gauge x 3/16 Use with insulin 5 times daily yxfzpk-vonhltgi-ortzwje (CREON 36) 36,000-114,000- 180,000 unit delayed release [...] PRN, # 1 EA, 0 Refill(s), Pharmacy: [address] amitriptyline (ELAVIL) 50 mg tablet Take 1 tablet by mouth daily at bedtime. amLODIPine (NORVASC) 2.5 mg tablet Take 1 tablet by mouth once daily. atorvastatin (LIPITOR) 40 mg tablet Take 1 tablet by mouth once daily. azelastine 0.1% nasal spray Use 1 Gravel Switch in each nostril two times a day. [...] visit: Core Review of Systems (Submitted on 07/02/2025) Fever : No Night sweats: No Recent unintentional weight change: No Nasal Congestion: Yes Hearing Loss: Yes Vision Disturbance: No A cough: No Difficulty Breathing?: Yes Chest pain: No Irregular heartbeat: No Leg Swelling: No Nausea: Yes Diarrhea: Yes Black tarry stools: No Difficulty Urinating?: No Awaken at Night More Than Once to Urinate?: Yes Joint pain or stiffness: Yes Muscle aches: Yes Leg or Foot Discomfort at Night?: No Dizziness: No Headaches: No Memory Loss: No Seizures: No PHYSICAL EXAMINATION There were no vitals taken for this visit. There is no height or weight on file to calculate BMI. Compared with December 24, 2024 and updated as appropriate Gen: well [...] good support ( has the medtronic) - unfortunately now losing some of that support - [employer] for supplies - iLet and humalog - asked him to prebolus which he had been reluctant to do 3 month FU Kathy Bravo MD July 07, 2025 documented in this encounter [facility] 07-01-2025 Telephone encounter Note July 01, 2025 11:48 AM Last encounter Visit on 03/31/2025 (with Kathy Bravo) Fax TRELL clinical notes to [facility] to [phone] Successfully transmitted Abimbola Diego Quality Control Microbiology Supervisor II [facility] F-20 [facility] 07-01-2025 Miscellaneous Notes July 01, 2025 11:48 AM Last encounter Visit on 03/31/2025 (with Kathy Bravo) [facility] [phone] Successfully transmitted Abimbola Diego Quality Control Microbiology Supervisor II [facility] F-20 documented in this encounter [facility] 06-26-2025 Telephone encounter Note Images from the original note were not included. Most recent Endocrinology visit: Last encounter Visit on 03/31/2025 (with Kathy Bravo) 08/22/2024 in ENDO MAIN with KATHY BRAVO for Post-pancreatectomy diabetes (HCC) 09/09/2024 in ENDO MAIN with KATHY BRAVO for Post-pancreatectomy diabetes (HCC) 10/31/2024 in ENDO MAIN CA 4 with KATHY BRAVO for Post-pancreatectomy diabetes (HCC) 12/24/2024 in ENDO MAIN with KATHY BRAVO for Post-pancreatectomy diabetes (HCC) 03/31/2025 in [facility]O [facility]ETES [facility] MAIN with KATHY BRAVO for Post-pancreatectomy diabetes (HCC) Upcoming Endocrinology Appointments - Next 365 Days Visit Type Date Time Department VIDEO SPEC EST 07/07/2025 7:40 AM [facility]O DIAB[facility]ES [facility] MAIN Requested Prescriptions Pending Prescriptions Disp Refills insulin lispro (HUMALOG KWIKPEN) 100 unit/mL [Pharmacy Med Name: INSULIN LISPRO 100 UNIT/ML PEN] 15 mL 1 Sig: USE UP TO 30 UNITS DAILY Hemoglobin A1c: None on file in the last 12 months TSH: None on file in the last 12 months Free T3: None on file in the last 12 months Free T4: None on file in the last 12 months Thyroglobulin: None on file in the last 12 months Vitamin D: None on file in the last 12 months Latest Ref Rng & Units 09/03/2024 09/02/2024 09/01/2024 Hematocrit Hematocrit 39.0 - 51.0 % 25.9 25.0 24.5 Latest Ref Rng & Units 09/03/2024 09/02/2024 09/01/2024 Creatinine Creatinine 0.73 - 1.22 mg/dL 0.82 0.84 0.73 Latest Ref Rng & Units 09/03/2024 09/02/2024 09/01/2024 eGFR EGFR >=60 mL/min/1.73m 104 104 108 Latest Ref Rng & Units 09/03/2024 09/02/2024 09/01/2024 Potassium Potassium 3.7 - 5.1 mmol/L 4.3 3.4 4.0 Testosterone: None on file in the last 12 months IGF: None on file in the last 12 months Prolactin: None on file in the last 12 months [facility] 06-26-2025 Miscellaneous Notes Images from the original note were not included. Most recent Endocrinology visit: Last encounter Visit on 03/31/2025 (with Kathy Bravo) 08/22/2024 in ENDO MAIN with KATHY BRAVO for Post-pancreatectomy diabetes (HCC) 09/09/2024 in ENDO MAIN with KATHY BRAVO for Post-pancreatectomy diabetes (HCC) 10/31/2024 in ENDO MAIN CA 4 with KATHY BRAVO for Post-pancreatectomy diabetes (HCC) 12/24/2024 in ENDO MAIN with KATHY BRAVO for Post-pancreatectomy diabetes (HCC) 03/31/2025 in ENDO DIABETES CTR MAIN with KATHY BRAVO for Post-pancreatectomy diabetes (HCC) Upcoming Endocrinology Appointments - Next 365 Days Visit Type Date Time Department VIDEO SPEC EST 07/07/2025 7:40 AM ENDO DIABETES CTR MAIN Requested Prescriptions Pending Prescriptions Disp Refills insulin lispro (HUMALOG KWIKPEN) 100 unit/mL [Pharmacy Med Name: INSULIN LISPRO 100 UNIT/ML PEN] 15 mL 1 Sig: USE UP TO 30 UNITS DAILY Hemoglobin A1c: None on file in the last 12 months TSH: None on file in the last 12 months Free T3: None on file in the last 12 months Free T4: None on file in the last 12 months Thyroglobulin: None on file in the last 12 months Vitamin D: None on file in the last 12 months Latest Ref Rng & Units 09/03/2024 09/02/2024 09/01/2024 Hematocrit Hematocrit 39.0 - 51.0 % 25.9 25.0 24.5 Latest Ref Rng & Units 09/03/2024 09/02/2024 09/01/2024 Creatinine Creatinine 0.73 - 1.22 mg/dL 0.82 0.84 0.73 Latest Ref Rng & Units 09/03/2024 09/02/2024 09/01/2024 eGFR EGFR >=60 mL/min/1.73m 104 104 108 Latest Ref Rng & Units 09/03/2024 09/02/2024 09/01/2024 Potassium Potassium 3.7 - 5.1 mmol/L 4.3 3.4 4.0 Testosterone: None on file in the last 12 months IGF: None on file in the last 12 months Prolactin: None on file in the last 12 months documented in this encounter [facility] 06-18-2025 Hospital Discharge instructions Dmitry Tierney MD - 06/18/2025 6:30 PM EDT Take your medication as indicated and prescribed. If you are given an antibiotic then, make sure you get the prescription filled and take the antibiotics until finished. Drink plenty of water while taking the antibiotics. Avoid drinking alcohol or drinks that have caffeine in it while taking antibiotics. For fever or pain use acetaminophen (Tylenol) unless prescribed medications that have acetaminophen or ibuprofen (or similar medications) in it. PLEASE RETURN TO THE EMERGENCY DEPARTMENT IMMEDIATELY for worsening symptoms, shortness of breathing, change in the amount of sputum that you cough up or a change in the color of your sputum, using your inhaler more frequently or if your inhaler only lasts up to 2 hours (if given an inhaler), or if you develop any concerning symptoms such as: high fever not relieved by acetaminophen (Tylenol) and/or ibuprofen (Motrin / Advil), chills, shortness of breath, chest pain, feeling of your heart fluttering or racing, persistent nausea and/or vomiting, vomiting up blood, blood in your stool, loss of consciousness, numbness, weakness or tingling in the arms or legs or change in color of the extremities, changes in mental status, persistent headache, blurry vision, loss of bladder / bowel control, unable to follow up with your physician, or other any other care or concern. The following attachments cannot be sent through Care Everywhere.Pneumonia ([place])documented in this encounter [facility] 06-12-2025 Telephone encounter Note Physician Order form received from [employer] for Insulin pump supplies. Last encounter Visit on 03/31/2025 (with Kathy Bravo) Form completed and signed fax to [phone] Successfully transmitted Index jesika chart Abimbola Diego Quality Control Microbiology Supervisor II [facility] F-20 [facility] 06-12-2025 Miscellaneous Notes Physician Order form received from [employer] for Insulin pump supplies. Last encounter Visit on 03/31/2025 (with Kathy Lawrence) Form completed and signed fax to [phone] Successfully transmitted Index jesika chart Juvenalshruthi Brandie Quality Control Microbiology Supervisor II [facility] F-20 documented in this encounter [facility] 05-30-2025 History of Present illness Narrative Provider is aware of that patient is wanting home medications, provider to address needs as soon as able. Went to bedside to administer tramadol and tylenol for pain. Patient refused medications stating tramadol isnt going to cut it anymore. I am having severe 10/10 pain and need something stronger Administrative Library Assistant did update provider on patient's request for stronger pain medications and refusal to take tramadol. Spiritual Services Interventions RW1/RW1 05/30/2025 Benoit Petty 54 y.o. year old male Encounter Summary Encounter Overview/Reason: (P) Crisis Service Provided For: (P) Family Referral/Consult From: (P) Nurse Support System: (P) Family members Last Encounter : (P) 05/30/25 Complexity of Encounter: (P) High Begin Time: (P) 1554 End Time : (P) 1645 Total Time Calculated: (P) 51 min Spiritual/Emotional needs Type: (P) Spiritual Support Assessment/Intervention/Outcome Assessment: (P) Anxious, Tearful Intervention: (P) Active listening, Empowerment, Sustaining Presence/Ministry of presence Outcome: (P) Comfort, Acceptance Pt's asked to speak with someone regarded her husbands health. Pt's stated that reacted negatively to news that she would like to separate from him. Pt's stated pt sent me hundreds of text messages today, and some of him sharing his intention to harm himself. Clinical Editor served the ministry of presence and relayed this information to the doctor. was anxious and tearful, and expressed gratitude. documented in this encounter [facility] 05-27-2025 History of Present illness Narrative Administrative Library Assistant went over discharge instructions with pt at this time. Administrative Library Assistant educated pt on new medications and possible side effects. Pt educated on ATB therapy and to finish full course and to look for increasing signs of infection. Pt verbalized understanding. Pt walked down to private car with pt belongings in hand. Pt's FSBS is 66, orange juice given at this time. Nutrition Assessment Type and Reason for Visit: Initial Nutrition Recommendations/Plan: Continue home diet strategies. Malnutrition Assessment: Malnutrition Status: At risk for malnutrition Nutrition Assessment: No nutrition diagnosis at this time. Post right flank pain with extensive surgical history including whipple, splenectomy, cholecystectomy. Controlled diabetes on insulin pump with reported good management and infrequent lows. Understands appropriate hypoglycemia treatment. Denies nutrition questions or concerns and planning discharge today. Nutrition Related Findings: actvie b/s. no edema. Wound Type: None Current Nutrition Therapies: ADULT DIET; Regular; 4 carb choices (60 gm/meal) Anthropometric Measures: Height: 177.8 cm (5' 10 ) Current Body Wt: 98.6 kg (217 lb 6.4 oz) BMI: 31.2 Nutrition Diagnosis: No nutrition diagnosis at this time Lab Results Component Value Date NA 139 05/27/2025 K 4.4 05/27/2025 CL 103 05/27/2025 CO2 26 05/27/2025 BUN 18 05/27/2025 CREATININE 1.2 05/27/2025 GLUCOSE 221 (H) 05/27/2025 CALCIUM 9.1 05/27/2025 BILITOT <0.2 05/27/2025 ALKPHOS 93 05/27/2025 AST 51 (H) 05/27/2025 ALT 63 (H) 05/27/2025 LABGLOM 71 05/27/2025 GFRAA 114 11/08/2021 GLOB 2.0 10/25/2021 Hemoglobin A1C Date Value Ref Range Status 06/18/2024 6.7 % Final Lab Results Component Value Date VITD25 >120.0 (H) 07/14/2024 Nutrition Interventions: Food and/or Nutrient Delivery: Continue Current Diet Nutrition Education/Counseling: Education/Counseling initiated Coordination of Nutrition Care: Continue to monitor while inpatient Plan of Care discussed with: patient Goals: Goals: Meet at least 75% of estimated needs, by next RD assessment Type of Goal: New goal Previous Goal Met: New Goal Nutrition Monitoring and Evaluation: Behavioral-Environmental Outcomes: None Identified Food/Nutrient Intake Outcomes: Food and Nutrient Intake Physical Signs/Symptoms Outcomes: Biochemical Data, Weight Discharge Planning: Continue current diet Obinna Landry RD, LD Contact: [phone] Administrative Library Assistant to bedside to complete morning assessment. Upon entry to room, pt in bed awake, respirations even and unlabored while on room air. Vitals obtained and assessment completed, see flow sheet for details. Pt is A&Ox4. Pt complaining of chronic pain, prn pain medication to be givens shortly. Lung sounds are clear throughout. Pt has insulin pump running. Pt updated on plan of care and whiteboard updated. Pt denies further needs from technical proposal writer at this time. Call light in reach. Care ongoing. Progress Note SUBJECTIVE: Patient seen for f/u of Acute pneumonia. He resting in bed no distress or complaints. Afebrile. Feels good. Wants to go home ROS: Constitutional: negative for fevers, and negative for chills. Respiratory: negative for shortness of breath, negative for cough, and negative for wheezing Cardiovascular: negative for chest pain, and negative for palpitations Gastrointestinal: negative for abdominal pain, negative for nausea,negative for vomiting, negative for diarrhea, and negative for constipation All other systems were reviewed with the patient and are negative unless otherwise stated in HPI OBJECTIVE: Vitals: Vitals: 05/27/25 0452 BP: Pulse: 62 Resp: 20 Temp: SpO2: 93% Weight - Scale: 98.6 kg (217 lb 6.4 oz) Height: 177.8 cm (5' 10 ) Weight Wt Readings from Last 3 Encounters: 05/27/25 98.6 kg (217 lb 6.4 oz) 05/13/25 93 kg (205 lb) 02/26/25 91.2 kg (201 lb) Body mass index is 31.19 kg/m . 24HR INTAKE/OUTPUT: Intake/Output Summary (Last 24 hours) at 05/27/2025 0642 Last data filed at 05/26/2025 2352 Gross per 24 hour Intake 3958.27 ml Output 2625 ml Net 1333.27 ml Exam: GEN: Awake, alert and oriented x3. EYES: EOMI, pupils equal NECK: Supple. No lymphadenopathy. No carotid bruit CVS: regular rate and rhythm, no audible murmur PULM: fine rales right base, no acute respiratory distress ABD: Bowels sounds normal. Abdomen is soft. No distention. no tenderness to palpation. EXT: no edema bilaterally . No calf tenderness. NEURO: Moves all extremities. Motor and sensory are grossly intact SKIN: No rashes. No skin lesions. Diagnostic Data: Complete Blood Count: Recent Labs 05/25/25175805/26/25 0535 05/27/25 0545 WBC 12.5* 11.5* 10.9 RBC 4.16* 4.20* 3.90* HGB 12.2* 12.1* 11.3* HCT 37.2* 37.7* 36.4* MCV 89.4 89.8 93.3 MCH 29.3 28.8 29.0 MCHC 32.8 32.1 31.0 RDW 13.5 13.7 14.3 PLT 433 452 396 MPV 9.0 9.6 9.8 Last 3 Blood Glucose: Recent Labs 05/25/25175805/26/25 0535 GLUCOSE 178* 166* Comprehensive Metabolic Profile: Recent Labs 05/25/25175805/26/25 0535 NA 134* 138 K 4.6 4.3 CL 101 101 CO2 21 26 BUN 22* 19 CREATININE 1.4* 1.2 GLUCOSE 178* 166* CALCIUM 9.1 9.0 BILITOT <0.2 0.3 ALKPHOS 145* 100 AST 90* 73* ALT 91* 78* Urinalysis: Lab Results Component Value Date/Time NITRU NEGATIVE 05/25/2025 10:39 PM COLORU Yellow 05/25/2025 10:39 PM PHUR 6.5 05/25/2025 10:39 PM PHUR 7.0 12/16/2024 10:13 AM PHUR 6.0 11/30/2023 09:45 AM WBCUA None 11/30/2023 09:45 AM RBCUA None 11/30/2023 09:45 AM BACTERIA TRACE 11/30/2023 09:45 AM CLARITYU slightly cloudy 12/16/2024 10:13 AM CLARITYU Clear 09/09/2020 12:00 AM SPECGRAV 1.015 12/16/2024 10:13 AM LEUKOCYTESUR NEGATIVE 05/25/2025 10:39 PM UROBILINOGEN Normal 05/25/2025 10:39 PM BILIRUBINUR NEGATIVE 05/25/2025 10:39 PM BLOODU neg 12/16/2024 10:13 AM BLOODU Negative 09/09/2020 12:00 AM GLUCOSEU NEGATIVE 05/25/2025 10:39 PM KETUA NEGATIVE 05/25/2025 10:39 PM HgBA1c: Lab Results Component Value Date/Time LABA1C 6.7 06/18/2024 02:30 PM Lactic Acid: Lab Results Component Value Date/Time LACTA 1.2 05/25/2025 04:00 PM LACTA 1.2 12/05/2024 04:59 PM LACTA 1.2 08/05/2024 07:25 PM Troponin: No results for input(s): TROPONINI in the last 72 hours. CRP: No results for input(s): CRP in the last 72 hours. Radiology/Imaging: US ABDOMEN COMPLETE Final Result 1. No acute findings. 2. Gallbladder surgically absent. XR CHEST (2 VW) Final Result Hyperaeration with no acute cardiopulmonary process seen. CT ABDOMEN PELVIS WO CONTRAST Additional Contrast? None Final Result Previous cholecystectomy, splenectomy, and prior Whipple procedure which is unchanged with mild pneumobilia centrally in the liver which is unchanged. Perirenal stranding around both kidneys which is more prominent could be due to progressive scarring or early inflammatory changes with no hydronephrosis or urinary obstruction. Recommend correlating with a urinalysis. Previous appendectomy which is unchanged and mild constipation with no obstruction. Mild prostatic enlargement and radium implants in the gland which is unchanged Questionable small inguinal hernias bilaterally which is unchanged Previous vertebroplasty at L3 which is unchanged Mild bibasilar atelectasis or early infiltrates posteriorly which is more prominent. ASSESSMENT / PLAN: MEDICAL DECISION MAKING: Primary Problem(s): Acute pneumonia Condition is stable Treatment plan: Monitor labs and replace electrolytes Telemetry monitoring Incentive spirometry BC x 2-no growth Imaging: no further imaging studies ordered today Medications: Stop Rocephin and Zithromax Start doxycycline and Augmentin Nebs Stop IV fluids Oxycodone as needed for pain Continue Symbicort Medication Monitoring / High Risk Medications: none Right upper quadrant pain/History of Whipple procedure/elevated LFTs Condition is improving Treatment plan: Consult general surgery Monitor labs/trend LFTs Imaging: U/S ruq-no acute findings Medications: Oxycodone as needed for pain Reglan as needed for nausea Continue Zenpep Hold atorvastatin Type 1 diabetes Condition is stable Treatment plan: POC glucose AC and at bedtime Diabetic diet Imaging: no further imaging studies ordered today Medications: Continue Humalog insulin pump Hypoglycemia protocol Nutrition status: Well developed, well nourished with no malnutrition Manager Photo consult initiated I/O Daily weight Monitor Daily intake Nutritional Supplements as tolerated MALNUTRITION ASSESSMENT AND PLAN The following was documented by the Dietitian: I agree with the dietitian's malnutrition assessment. Medical Nutrition Therapy: continue current nutrition therapy Hospital Prophylaxis: DVT: Lovenox Stress Ulcer: PPI Disposition: Shared decision making: All test results, treatment options and disposition options were discussed with the patient today Social determinants of health that may impact management: none Code status: Full Code Disposition: Discharge plan is home [facility] Advanced Care Planning documentation: [x] I have confirmed that the patient's Advance Care Plan is present, Code Status is documented, or surrogate decision maker is listed in the patient's medical record [If yes , STOP HERE] [] The patient's Advance Care Plan is NOT present because: [] I confirmed today that the patient does not wish or was not able to name a surrogate decision maker or provide and advance care plan. [] Hospice care is currently being provided or has been provided within the calendar year. [] I did NOT confirm today the presence of an Advance Care Plan or surrogate decision maker documented within the patient's medical record. [DOES NOT SATISFY [facility] PERFORMANCE] NATE Montenegro CNP , NATE, INTERNAL MEDICINE HOSPITALIST-C Hospitalist Medicine 05/27/2025, 6:42 AM Cosigned by Irvin Obrien MD at 05/27/2025 12:49 PM EDT Associated attestation - Irvin Obrien MD - 05/27/2025 12:49 PM EDT Images from the original note were not included. [address], [address] Attestation Patient: Thomas Petty Date of Admission: 05/25/2025 5:23 PM Hospital Day # 2 Date of Evaluation: 05/27/2025 I personally evaluated and examined the patient [id number] in conjunction with the PA/INTERNAL MEDICINE HOSPITALIST and agree with the management and dispostition of the patient. Please see the PA/INTERNAL MEDICINE HOSPITALIST's note for full details. My greenfield findings are: SUBJECTIVE: Patient seen for follow up of Acute pneumonia. Patient seen and examined at the bed side , no new acute events overnight and no new complains noted. VSS, afebrile.Notes from nursing staff and Consults had been reviewed, and the overnight progress had been checked with the nursing staff as well. His pain has nearly completely resolved and his breathing is better and back to normal. OBJECTIVE: Vitals: Temp: 97.6 F (36.4 C) BP: 123/80 Respirations: 18 Pulse: 78 SpO2: 93 % Weight Wt Readings from Last 3 Encounters: 05/27/25 98.6 kg (217 lb 6.4 oz) 05/13/25 93 kg (205 lb) 02/26/25 91.2 kg (201 lb) Body mass index is 31.19 kg/m . 24HR INTAKE/OUTPUT: Intake/Output Summary (Last 24 hours) at 05/27/2025 1248 Last data filed at 05/27/2025 1058 Gross per 24 hour Intake 3578.27 ml Output 1725 ml Net 1853.27 ml Exam: GEN: Awake, alert and oriented x3. EYES: EOMI, pupils equal NECK: Supple. No lymphadenopathy. No carotid bruit CVS: regular rate and rhythm, no audible murmur PULM: CTA, no wheezes, rales or rhonchi, no acute respiratory distress ABD: Bowels sounds normal. Abdomen is soft. No distention. no tenderness to palpation. EXT: no edema bilaterally . No calf tenderness. NEURO: Moves all extremities. Motor and sensory are grossly intact SKIN: No rashes. No skin lesions. DATA: Complete Blood Count: Recent Labs 05/25/25 1759 05/26/25 0535 05/27/25 0545 WBC 12.5* 11.5* 10.9 RBC 4.16* 4.20* 3.90* HGB 12.2* 12.1* 11.3* HCT 37.2* 37.7* 36.4* MCV 89.4 89.8 93.3 RDW 13.5 13.7 14.3 PLT 433 452 396 Recent Labs 05/25/25 1759 05/26/25 0535 05/27/25 0545 NEUTROABS 7.20 6.25 5.69 LYMPHOPCT 29 32 34 LYMPHSABS 3.59 3.68 3.74* MONOPCT 11 11 11 BASOPCT 1 1 1 IMMGRAN 1* 1* 1* CMP: Lab Results Component Value Date GLUCOSE 221 (H) 05/27/2025 BUN 18 05/27/2025 CREATININE 1.2 05/27/2025 NA 139 05/27/2025 K 4.4 05/27/2025 CALCIUM 9.1 05/27/2025 CL 103 05/27/2025 CO2 26 05/27/2025 BILITOT <0.2 05/27/2025 ALKPHOS 93 05/27/2025 ALT 63 (H) 05/27/2025 AST 51 (H) 05/27/2025 UA: Lab Results Component Value Date COLORU Yellow 05/25/2025 CLARITYU slightly cloudy 12/16/2024 SPECGRAV 1.015 12/16/2024 WBCUA None 11/30/2023 RBCUA None 11/30/2023 LEUKOCYTESUR NEGATIVE 05/25/2025 GLUCOSEU NEGATIVE 05/25/2025 BLOODU neg 12/16/2024 KETUA NEGATIVE 05/25/2025 PROTEINU NEGATIVE 05/25/2025 HGBUR NEGATIVE 05/25/2025 BACTERIA TRACE (A) 11/30/2023 Lactic Acid: Lab Results Component Value Date/Time LACTA 1.2 05/25/2025 04:00 PM LACTA 1.2 12/05/2024 04:59 PM LACTA 1.2 08/05/2024 07:25 PM High Sensitivity Troponin: No results for input(s): TROPHS in the last 72 hours. Radiology/Imaging: US ABDOMEN COMPLETE Final Result 1. No acute findings. 2. Gallbladder surgically absent. XR CHEST (2 VW) Final Result Hyperaeration with no acute cardiopulmonary process seen. CT ABDOMEN PELVIS WO CONTRAST Additional Contrast? None Final Result Previous cholecystectomy, splenectomy, and prior Whipple procedure which is unchanged with mild pneumobilia centrally in the liver which is unchanged. Perirenal stranding around both kidneys which is more prominent could be due to progressive scarring or early inflammatory changes with no hydronephrosis or urinary obstruction. Recommend correlating with a urinalysis. Previous appendectomy which is unchanged and mild constipation with no obstruction. Mild prostatic enlargement and radium implants in the gland which is unchanged Questionable small inguinal hernias bilaterally which is unchanged Previous vertebroplasty at L3 which is unchanged Mild bibasilar atelectasis or early infiltrates posteriorly which is more prominent. ASSESSMENT: Principal Problem: Acute pneumonia Active Problems: Bipolar 1 disorder (HCC) Type 1 diabetes mellitus (HCC) RUQ pain History of pancreatic cancer H/O Whipple procedure Right flank pain Resolved Problems: * No resolved hospital problems. * PLAN: I agree with the plan as outlined in the INTERNAL MEDICINE HOSPITALIST/PA's note Disposition: Discharge plan is pending Please note that this chart was generated using voice recognition [employer] dictation software. Although every effort was made to ensure the accuracy of this automated treating engineer, some errors in treating engineer may have occurred. Irvin Obrien MD 05/27/2025 12:48 PM Patient resting comfortably at this time. Patient alert & oriented x4. Patient able to answer all questions appropriately and follow commands. Patient reports 6/10 pain but states this is normal pain for him. Breathing regular and unlabored, on room air. Bed alarm on, bed locked, gripper socks on, call light within reach and able to use appropriately. Plan of care ongoing. Patients monitor read 134 when CYBER WORKFORCE DEVELOPER AND MANAGER checked his blood sugar with our meter. Our meter read 103. Patient states that he is going to calibrate his monitor/insulin pump to match our reading of 103. Dr. Toscano in to see pt. Spiritual Services Interventions [id number]/0318-01 05/26/2025 Edith George Thomas Petty 54 y.o. year old male Encounter Summary Encounter Overview/Reason: (P) Initial Encounter Service Provided For: (P) Patient Referral/Consult From: (P) Rounding Support System: (P) Spouse Last Encounter : (P) 05/26/25 Complexity of Encounter: (P) Moderate Begin Time: (P) 1130 End Time : (P) 1200 Total Time Calculated: (P) 30 min Spiritual/Emotional needs Type: (P) Spiritual Support Assessment/Intervention/Outcome Assessment: (P) Calm Intervention: (P) Active listening, Discussed , afterlife, Discussed illness injury and it s impact, Explored/Affirmed feelings, thoughts, concerns, Life review/Legacy Outcome: (P) Engaged in conversation, Encouraged Received response from Dr. Toscano acknowledging surgery consult. Pt stated I feel great when discussing symptoms. Pt spoke of possible going home today. Administrative Library Assistant explained that he would likely not leave after less than 12 hours in the hospital and he still needed to see the surgeon. Pt and significant other stated understanding. Updated them with the name of the surgeon that would be coming to see him today. Both were thankful for information. [facility] Inpatient/Observation Date: 05/26/2025 Patient Name: Thomas Petty : 1970 [x] Pt does not require skilled services due to: PT/OT order received and chart reviewed. Pt reports being up independently in room and functioning at baseline. Pt denies any balance, strength or functional deficits at this time. PT order will be discontinued at this time. Please re-consult if pt has a change or decline in function. Thank you for the opportunity to assist in the care of this patient. PILO LANDRY, PT Date: 05/26/2025 Cosigned by Rosenda Rankin APRN - CNP at 05/26/2025 9:57 PM EDT [facility] Inpatient/Observation/Outpatient Rehabilitation Date: 05/26/2025 Patient Name: Thomas Petty [x] Inpatient Acute/Observation [] Outpatient : 1970 [x] Pt does not require skilled services due to: Pt reports he is independent in room for ADLs and functional transfers / mobility. No skilled occupational therapy recommended at this time. Toshia Waters, OT Date: 05/26/2025 Cosigned by Rosenda Rankin APRN - CNP at 05/26/2025 9:56 PM EDT Progress Note SUBJECTIVE: Patient seen for f/u of Acute pneumonia. He still has pain to the right upper quadrant. RUQ u/s ordered today, awaiting Gen Surg consult for input ROS: Constitutional: negative for fevers, and negative for chills. Feels tired and run down Respiratory: positive for shortness of breath, negative for cough, and negative for wheezing Cardiovascular: negative for chest pain, and negative for palpitations Gastrointestinal: positive for abdominal pain, negative for nausea,negative for vomiting, negative for diarrhea, and negative for constipation All other systems were reviewed with the patient and are negative unless otherwise stated in HPI OBJECTIVE: Vitals: Vitals: 05/26/25 0714 BP: Pulse: Resp: 16 Temp: SpO2: Weight - Scale: 98.4 kg (217 lb) Height: 177.8 cm (5' 10 ) Weight Wt Readings from Last 3 Encounters: 05/26/25 98.4 kg (217 lb) 05/13/25 93 kg (205 lb) 02/26/25 91.2 kg (201 lb) Body mass index is 31.14 kg/m . 24HR INTAKE/OUTPUT: Intake/Output Summary (Last 24 hours) at 05/26/2025 0908 Last data filed at 05/26/2025 0823 Gross per 24 hour Intake 1140 ml Output 1300 ml Net -160 ml Exam: GEN: Awake, alert and oriented x3. EYES: EOMI, pupils equal NECK: Supple. No lymphadenopathy. No carotid bruit CVS: regular rate and rhythm, no audible murmur PULM: CTA, no wheezes, rales or rhonchi, no acute respiratory distress ABD: Bowels sounds normal. Abdomen is soft. No distention. RUQ tenderness to palpation. EXT: no edema bilaterally . No calf tenderness. NEURO: Moves all extremities. Motor and sensory are grossly intact SKIN: No rashes. No skin lesions. Diagnostic Data: Complete Blood Count: Recent Labs 05/25/25175805/26/25 0535 WBC 12.5* 11.5* RBC 4.16* 4.20* HGB 12.2* 12.1* HCT 37.2* 37.7* MCV 89.4 89.8 MCH 29.3 28.8 MCHC 32.8 32.1 RDW 13.5 13.7 PLT 433 452 MPV 9.0 9.6 Last 3 Blood Glucose: Recent Labs 05/25/25175805/26/25 0535 GLUCOSE 178* 166* Comprehensive Metabolic Profile: Recent Labs 05/25/25175805/26/25 0535 NA 134* 138 K 4.6 4.3 CL 101 101 CO2 21 26 BUN 22* 19 CREATININE 1.4* 1.2 GLUCOSE 178* 166* CALCIUM 9.1 9.0 BILITOT <0.2 0.3 ALKPHOS 145* 100 AST 90* 73* ALT 91* 78* Urinalysis: Lab Results Component Value Date/Time NITRU NEGATIVE 05/25/2025 10:39 PM COLORU Yellow 05/25/2025 10:39 PM PHUR 6.5 05/25/2025 10:39 PM PHUR 7.0 12/16/2024 10:13 AM PHUR 6.0 11/30/2023 09:45 AM WBCUA None 11/30/2023 09:45 AM RBCUA None 11/30/2023 09:45 AM BACTERIA TRACE 11/30/2023 09:45 AM CLARITYU slightly cloudy 12/16/2024 10:13 AM CLARITYU Clear 09/09/2020 12:00 AM SPECGRAV 1.015 12/16/2024 10:13 AM LEUKOCYTESUR NEGATIVE 05/25/2025 10:39 PM UROBILINOGEN Normal 05/25/2025 10:39 PM BILIRUBINUR NEGATIVE 05/25/2025 10:39 PM BLOODU neg 12/16/2024 10:13 AM BLOODU Negative 09/09/2020 12:00 AM GLUCOSEU NEGATIVE 05/25/2025 10:39 PM KETUA NEGATIVE 05/25/2025 10:39 PM HgBA1c: Lab Results Component Value Date/Time LABA1C 6.7 06/18/2024 02:30 PM Lactic Acid: Lab Results Component Value Date/Time LACTA 1.2 05/25/2025 04:00 PM LACTA 1.2 12/05/2024 04:59 PM LACTA 1.2 08/05/2024 07:25 PM Troponin: No results for input(s): TROPONINI in the last 72 hours. CRP: No results for input(s): CRP in the last 72 hours. Radiology/Imaging: US ABDOMEN COMPLETE Final Result 1. No acute findings. 2. Gallbladder surgically absent. XR CHEST (2 VW) Final Result Hyperaeration with no acute cardiopulmonary process seen. CT ABDOMEN PELVIS WO CONTRAST Additional Contrast? None Final Result Previous cholecystectomy, splenectomy, and prior Whipple procedure which is unchanged with mild pneumobilia centrally in the liver which is unchanged. Perirenal stranding around both kidneys which is more prominent could be due to progressive scarring or early inflammatory changes with no hydronephrosis or urinary obstruction. Recommend correlating with a urinalysis. Previous appendectomy which is unchanged and mild constipation with no obstruction. Mild prostatic enlargement and radium implants in the gland which is unchanged Questionable small inguinal hernias bilaterally which is unchanged Previous vertebroplasty at L3 which is unchanged Mild bibasilar atelectasis or early infiltrates posteriorly which is more prominent. ASSESSMENT / PLAN: MEDICAL DECISION MAKING: Primary Problem(s): Acute pneumonia Differential diagnoses: Viral illness, pleurisy, MSK pain, UTI, hepatitis Condition is an undiagnosed new problem with uncertain prognosis Condition is stable Treatment plan: Monitor labs and replace electrolytes Telemetry monitoring Incentive spirometry Blood Cultures added - pending Imaging: no further imaging studies ordered today Medications: Rocephin and Zithromax Nebs IV fluids Oxycodone as needed for pain Continue Symbicort Medication Monitoring / High Risk Medications: none Right upper quadrant pain/History of Whipple procedure Condition is stable Treatment plan: Consult general surgery Monitor labs/trend LFTs U/S ruq ordered Imaging: U/S ruq pending Medications: Oxycodone as needed for pain Reglan as needed for nausea Continue Zenpep Hold atorvastatin Type 1 diabetes Condition is stable Treatment plan: POC glucose AC and at bedtime Diabetic diet Imaging: no further imaging studies ordered today Medications: Continue Humalog insulin pump Hypoglycemia protocol Nutrition status: Well developed, well nourished with no malnutrition Manager Photo consult initiated I/O Daily weight Monitor Daily intake Nutritional Supplements as tolerated MALNUTRITION ASSESSMENT AND PLAN The following was documented by the Dietitian: I agree with the dietitian's malnutrition assessment. Medical Nutrition Therapy: continue current nutrition therapy Hospital Prophylaxis: DVT: Lovenox Stress Ulcer: PPI Disposition: Shared decision making: All test results, treatment options and disposition options were discussed with the patient today Social determinants of health that may impact management: none Code status: Full Code Disposition: Discharge plan is pending [facility] Advanced Care Planning documentation: [x] I have confirmed that the patient's Advance Care Plan is present, Code Status is documented, or surrogate decision maker is listed in the patient's medical record [If yes , STOP HERE] [] The patient's Advance Care Plan is NOT present because: [] I confirmed today that the patient does not wish or was not able to name a surrogate decision maker or provide and advance care plan. [] Hospice care is currently being provided or has been provided within the calendar year. [] I did NOT confirm today the presence of an Advance Care Plan or surrogate decision maker documented within the patient's medical record. [DOES NOT SATISFY MIPS PERFORMANCE] GOOD BRENNER APRN - RAMSEY , JOCELYN SULLIVAN-C Hospitalist Medicine 05/26/2025, 9:08 AM Cosigned by Irvin Obrien MD at 05/26/2025 5:57 PM EDT Associated attestation - Irvin Obrien MD - 05/26/2025 5:57 PM EDT Images from the original note were not included. [address], [address] Attestation Patient: Thomas Petty Date of Admission: 05/25/2025 5:23 PM Hospital Day # 1 Date of Evaluation: 05/26/2025 I personally evaluated and examined the patient [id number] in conjunction with the PA/INTERNAL MEDICINE HOSPITALIST and agree with the management and dispostition of the patient. Please see the PA/INTERNAL MEDICINE HOSPITALIST's note for full details. My greenfield findings are: SUBJECTIVE: Patient seen for follow up of Acute pneumonia. Patient seen and examined at the bed side , no new acute events overnight and no new complains noted. He is feeling better than prior but continues to have discomfort. Notes from nursing staff and Consults had been reviewed, and the overnight progress had been checked with the nursing staff as well. OBJECTIVE: Vitals: Temp: 97.7 F (36.5 C) BP: 116/76 Respirations: 18 Pulse: 57 SpO2: 96 % Weight Wt Readings from Last 3 Encounters: 05/26/25 98.4 kg (217 lb) 05/13/25 93 kg (205 lb) 02/26/25 91.2 kg (201 lb) Body mass index is 31.14 kg/m . 24HR INTAKE/OUTPUT: Intake/Output Summary (Last 24 hours) at 05/26/20251756 Last data filed at 05/26/2025 1716 Gross per 24 hour Intake 3958.27 ml Output 2425 ml Net 1533.27 ml Exam: GEN: Awake, alert and oriented x3. EYES: EOMI, pupils equal NECK: Supple. No lymphadenopathy. No carotid bruit CVS: regular rate and rhythm, no audible murmur PULM: CTA, no wheezes, rales or rhonchi, no acute respiratory distress ABD: Bowels sounds normal. Abdomen is soft. No distention. RUQ tenderness to palpation. EXT: no edema bilaterally . No calf tenderness. NEURO: Moves all extremities. Motor and sensory are grossly intact SKIN: No rashes. No skin lesions. DATA: Complete Blood Count: Recent Labs 05/25/25175805/26/25 0535 WBC 12.5* 11.5* RBC 4.16* 4.20* HGB 12.2* 12.1* HCT 37.2* 37.7* MCV 89.4 89.8 RDW 13.5 13.7 PLT 433 452 Recent Labs 05/25/25175805/26/25 0535 NEUTROABS 7.20 6.25 LYMPHOPCT 29 32 LYMPHSABS 3.59 3.68 MONOPCT 11 11 BASOPCT 1 1 IMMGRAN 1* 1* CMP: Lab Results Component Value Date GLUCOSE 166 (H) 05/26/2025 BUN 19 05/26/2025 CREATININE 1.2 05/26/2025 NA 138 05/26/2025 K 4.3 05/26/2025 CALCIUM 9.0 05/26/2025 CL 101 05/26/2025 CO2 26 05/26/2025 BILITOT 0.3 05/26/2025 ALKPHOS 100 05/26/2025 ALT 78 (H) 05/26/2025 AST 73 (H) 05/26/2025 UA: Lab Results Component Value Date COLORU Yellow 05/25/2025 CLARITYU slightly cloudy 12/16/2024 SPECGRAV 1.015 12/16/2024 WBCUA None 11/30/2023 RBCUA None 11/30/2023 LEUKOCYTESUR NEGATIVE 05/25/2025 GLUCOSEU NEGATIVE 05/25/2025 BLOODU neg 12/16/2024 KETUA NEGATIVE 05/25/2025 PROTEINU NEGATIVE 05/25/2025 HGBUR NEGATIVE 05/25/2025 BACTERIA TRACE (A) 11/30/2023 Lactic Acid: Lab Results Component Value Date/Time LACTA 1.2 05/25/2025 04:00 PM LACTA 1.2 12/05/2024 04:59 PM LACTA 1.2 08/05/2024 07:25 PM High Sensitivity Troponin: No results for input(s): TROPHS in the last 72 hours. Radiology/Imaging: US ABDOMEN COMPLETE Final Result 1. No acute findings. 2. Gallbladder surgically absent. XR CHEST (2 VW) Final Result Hyperaeration with no acute cardiopulmonary process seen. CT ABDOMEN PELVIS WO CONTRAST Additional Contrast? None Final Result Previous cholecystectomy, splenectomy, and prior Whipple procedure which is unchanged with mild pneumobilia centrally in the liver which is unchanged. Perirenal stranding around both kidneys which is more prominent could be due to progressive scarring or early inflammatory changes with no hydronephrosis or urinary obstruction. Recommend correlating with a urinalysis. Previous appendectomy which is unchanged and mild constipation with no obstruction. Mild prostatic enlargement and radium implants in the gland which is unchanged Questionable small inguinal hernias bilaterally which is unchanged Previous vertebroplasty at L3 which is unchanged Mild bibasilar atelectasis or early infiltrates posteriorly which is more prominent. ASSESSMENT: Principal Problem: Acute pneumonia Active Problems: Bipolar 1 disorder (HCC) Type 1 diabetes mellitus (HCC) RUQ pain History of pancreatic cancer H/O Whipple procedure Right flank pain Resolved Problems: * No resolved hospital problems. * PLAN: I agree with the plan as outlined in the INTERNAL MEDICINE HOSPITALIST/PA's note Disposition: Discharge plan is pending Please note that this chart was generated using voice recognition [employer] dictation software. Although every effort was made to ensure the accuracy of this automated treating engineer, some errors in treating engineer may have occurred. Irvin Obrien MD 05/26/2025 5:57 PM Patients blood sugar is 82 per patients insulin pump, patients insulin pump indicated that the patients blood sugar is dropping/going down from the 82. Patient given grape juice that he brought with him. Patient given a cup with ice and a cranberry juice to keep at bedside to have if his insulin pump indicates that his blood sugar is low and/or dropping. RN aware. Patient arrived to room from ED, technical proposal writer received report from ED Nurse, Yesenia RAWLS. Patient arrives to room A/O x4. Patient ambulated to bed and tolerated well. Admission navigator completed and medications reviewed with patient. Vital signs as charted. Patient requesting pain medications and denies any other needs at this time. Patient resting comfortably. gripper socks on, Bed locked, call light within reach. Plan of care ongoing. documented in this encounter [facility] 05-27-2025 Hospital Discharge instructions Sneha Sims RN - 05/27/2025 12:33 PM EDT As tolerated Sneha Sims RN - 05/27/2025 12:33 PM EDT Good nutrition is important when healing from an illness, injury, or surgery. Follow any nutrition recommendations given to you during your hospital stay. If you were given an oral nutrition supplement while in the hospital, continue to take this supplement at home. You can take it with meals, in-between meals, and/or before bedtime. These supplements can be purchased at most local grocery stores, pharmacies, and chain super-stores. If you have any questions about your diet or nutrition, call the hospital and ask for the dietitian. *General, carb control diet documented in this encounter [facility] 05-27-2025 Hospital course Narrative Images from the original note were not included. Discharge Summary Thomas Petty : 1970 Admit date: 05/25/2025 Discharge date: 05/27/2025 Admitting Physician: Irvin Obrien MD Discharge Diagnoses: Principal Problem: Acute pneumonia Active Problems: Bipolar 1 disorder (HCC) Type 1 diabetes mellitus (HCC) RUQ pain History of pancreatic cancer H/O Whipple procedure Right flank pain Resolved Problems: * No resolved hospital problems. * Hospital Course: Thomas Petty is a 54 y.o. male admitted with acute pneumonia. He presented with complaints of right sided abdominal pain. He reported pain was worse with inspiration. He described it as sharp and as though he was being kicked in the ribs. He reported nausea but no vomiting. He denied fever or chills. He denied cough or chest pain. He did report urinary frequency and urgency. He does have significant history including pancreatic cancer with Whipple procedure and splenectomy in 2023. He reported that his symptoms feel different than when he was dealing with his previous health problems. CT abdomen and pelvis showed no acute findings except for early infiltrates posteriorly. Patient had leukocytosis of 12.5. LFTs were increased from baseline with an alk phosphatase of 145 ALT of 91 and AST of 90. BUN and creatinine were slightly elevated at 22 and a 1.4. Urinalysis was negative. During his admission labs were monitored electrolytes replaced. Patient's Tricor and Lipitor were held LFTs are improving but I will continue to hold on discharge. He was evaluated by general surgery who reviewed radiology studies including ultrasound of the right upper quadrant which showed no acute findings. No surgical interventions required. Patient was placed on IV antibiotics for pneumonia and transition to oral antibiotics for discharge and will continue. Plan will be to discharge today labs in a week he will follow-up with primary care. Consultants: , Gen Surg Procedures: none Complications: none Discharge Condition: fair Exam: GEN: Awake, alert and oriented x3. EYES: EOMI, pupils equal NECK: Supple. No lymphadenopathy. No carotid bruit CVS: regular rate and rhythm, no audible murmur PULM: fine rales right base, no acute respiratory distress ABD: Bowels sounds normal. Abdomen is soft. No distention. no tenderness to palpation. EXT: no edema bilaterally . No calf tenderness. NEURO: Moves all extremities. Motor and sensory are grossly intact SKIN: No rashes. No skin lesions. Significant Diagnostic Studies: Lab Results Component Value Date WBC 10.9 05/27/2025 HGB 11.3 (L) 05/27/2025 PLT 396 05/27/2025 Lab Results Component Value Date BUN 18 05/27/2025 CREATININE 1.2 05/27/2025 NA 139 05/27/2025 K 4.4 05/27/2025 CALCIUM 9.1 05/27/2025 CL 103 05/27/2025 CO2 26 05/27/2025 LABGLOM 71 05/27/2025 Lab Results Component Value Date WBCUA None 11/30/2023 RBCUA None 11/30/2023 LEUKOCYTESUR NEGATIVE 05/25/2025 SPECGRAV 1.015 12/16/2024 GLUCOSEU NEGATIVE 05/25/2025 KETUA NEGATIVE 05/25/2025 PROTEINU NEGATIVE 05/25/2025 HGBUR NEGATIVE 05/25/2025 BACTERIA TRACE (A) 11/30/2023 US ABDOMEN COMPLETE Result Date: 05/26/2025 EXAM: COMPLETE ABDOMINAL ULTRASOUND TECHNIQUE: Real-time ultrasonography of the abdomen was performed. COMPARISON: None available. CLINICAL HISTORY: Pain to right upper quadrant. FINDINGS: LIVER: The liver demonstrates normal echogenicity. No intrahepatic biliary ductal dilatation. No mass. BILIARY SYSTEM: Gallbladder is surgically absent. The common bile duct measures 3.1 mm. No pericholecystic fluid or wall thickening. No cholelithiasis. Negative sonographic Beltran's sign. KIDNEYS: The kidneys are unremarkable in appearance without evidence of hydronephrosis, echogenic calculi or worrisome mass lesions. PANCREAS: Visualized portions of the pancreas are unremarkable. SPLEEN: No acute abnormality. Spleen is within normal limits in size. IVC: The IVC is patent. AORTA: Aorta is patent. No aneurysm. OTHER: No ascites. 1. No acute findings. 2. Gallbladder surgically absent. XR CHEST (2 VW) Result Date: 05/26/2025 EXAMINATION: TWO XRAY VIEWS OF THE CHEST 05/25/2025 11:54 pm COMPARISON: 08/08/2024 HISTORY: ORDERING SYSTEM PROVIDED HISTORY: rigth lower lung pain with inspiration TECHNOLOGIST PROVIDED HISTORY: rigth lower lung pain with inspiration FINDINGS: Spinal stimulator device noted. Sternal fixation plate noted. Vertebral body cement noted within the midthoracic spine at multiple levels. Multilevel degenerative changes are seen in the spine. Exaggerated kyphotic curvature. Lungs are clear. No acute cardiopulmonary process. Hyperaeration suggestive of COPD. Flattening the hemidiaphragms. Hyperaeration with no acute cardiopulmonary process seen. CT ABDOMEN PELVIS WO CONTRAST Additional Contrast? None Result Date: 05/25/2025 EXAMINATION: CT OF THE ABDOMEN AND PELVIS WITHOUT CONTRAST 05/25/2025 6:18 pm TECHNIQUE: CT of the abdomen and pelvis was performed without the administration of intravenous contrast. Multiplanar reformatted images are provided for review. Automated exposure control, iterative reconstruction, and/or weight based adjustment of the mA/kV was utilized to reduce the radiation dose to as low as reasonably achievable. COMPARISON: 02/16/2025 HISTORY: ORDERING SYSTEM PROVIDED HISTORY: Right flank pain TECHNOLOGIST PROVIDED HISTORY: Right flank pain Decision Support Exception - unselect if not a suspected or confirmed emergency medical condition->Emergency Medical Condition (MA) FINDINGS: Lower Chest: There is some hazy subsegmental linear and ground-glass opacities along the lung bases posterolaterally. Organs: The liver is normal size with mild pneumobilia centrally in the liver extending into the common duct which is unchanged. The gallbladder has been removed and the bile ducts are normal caliber. The pancreas has been partially resected with surgical clips along the head region which is unchanged. The spleen has been removed. The adrenals are normal. The kidneys are normal size with mild perirenal stranding around both kidneys which is more prominent with no hydronephrosis, renal stone, or mass. The ureters are normal caliber. GI/Bowel: There is mild feces scattered in the colon. There are surgical sutures along the cecum and the appendix not visualized which is unchanged. The small bowel is normal caliber with no bowel wall thickening and the mesentery is unremarkable Pelvis: The prostate gland is mildly enlarged with radium implants in the gland which is unchanged. There is mild fat density along the inguinal regions bilaterally which is unchanged with no bowel loops in the area. There is no adenopathy or ascites. Peritoneum/Retroperitoneum: The aorta is normal caliber with no aneurysm and no retroperitoneal mass or adenopathy is seen. There is diastasis of the rectus sheath with bulging along the umbilical region which is unchanged. There is a TENs unit device along the left gluteal region which is causing streak artifact and is unchanged. Bones/Soft Tissues: There are moderate degenerative changes throughout the spine with a mild compression deformity of L3 and a previous vertebral plasty at this level which is unchanged with no retropulsed fragment. Previous cholecystectomy, splenectomy, and prior Whipple procedure which is unchanged with mild pneumobilia centrally in the liver which is unchanged. Perirenal stranding around both kidneys which is more prominent could be due to progressive scarring or early inflammatory changes with no hydronephrosis or urinary obstruction. Recommend correlating with a urinalysis. Previous appendectomy which is unchanged and mild constipation with no obstruction. Mild prostatic enlargement and radium implants in the gland which is unchanged Questionable small inguinal hernias bilaterally which is unchanged Previous vertebroplasty at L3 which is unchanged Mild bibasilar atelectasis or early infiltrates posteriorly which is more prominent. Assessment and Plan: Patient Active Problem List Diagnosis Date Noted RUQ pain 05/26/2025 History of pancreatic cancer 05/26/2025 H/O Whipple procedure 05/26/2025 Right flank pain 05/26/2025 Acute pneumonia 05/25/2025 Type 1 diabetes mellitus (HCC) 11/27/2024 Mild malnutrition 02/08/2024 Acute pancreatitis without infection or necrosis 02/07/2024 Bronchitis 02/07/2024 Radiculopathy of lumbar region 05/29/2023 Presence of other specified devices 05/29/2023 Primary osteoarthritis 05/29/2023 Strain of lumbar region 05/29/2023 Trochanteric bursitis of right hip 05/29/2023 Acute on chronic pancreatitis (HCC) 05/18/2023 Right knee pain 05/24/2020 Posttraumatic stress disorder 01/26/2020 Severe persistent asthma (HCC) 08/06/2019 Fatty liver Hypertriglyceridemia History of bowel resection GERD (gastroesophageal reflux disease) Colon polyp Bipolar 1 disorder (HCC) Low back pain Dong's esophagus 07/03/2012 Chronic anxiety 10/31/2002 Discharge Medications: Medication List PAUSE taking these medications atorvastatin 40 MG tablet Wait to take this until your doctor or other care provider tells you to start again. Commonly known as: Lipitor Take 1 tablet by mouth daily fenofibrate 54 MG tablet Wait to take this until your doctor or other care provider tells you to start again. Commonly known as: TRICOR Take 1 tablet by mouth daily s [facility] pharmacy: Please dispense generic fenofibrate unless prescriber denote START taking these medications amoxicillin-clavulanate 875-125 MG per tablet Commonly known as: AUGMENTIN Take 1 tablet by mouth every 12 hours for 15 doses doxycycline hyclate 100 MG capsule Commonly known as: VIBRAMYCIN Take 1 capsule by mouth every 12 hours for 15 doses CHANGE how you take these medications [id number] units Cpep delayed release capsule Commonly known as: CREON Creon 73134 units oral delayed release capsule: TAKE 2 CAPSULES WITH MEALS (3 TIMES A DAY) AND 1 CAPSULE WITH SNACKS (1 DAILY). What changed: additional instructions traMADol 50 MG tablet Commonly known as: ULTRAM What changed: Another medication with the same name was removed. Continue taking this medication, and follow the directions you see here. CONTINUE taking these medications amitriptyline 50 MG tablet Commonly known as: ELAVIL amLODIPine 2.5 MG tablet Commonly known as: NORVASC Take 1 tablet by mouth daily b complex vitamins capsule * clonazePAM 1 MG tablet Commonly known as: KLONOPIN * clonazePAM 0.5 MG tablet Commonly known as: KLONOPIN ferrous sulfate 325 (65 Fe) MG tablet Commonly known as: IRON 325 Take 1 tablet by mouth daily (with breakfast) fexofenadine 180 MG tablet Commonly known as: CHAKA Take 1 tablet by mouth at bedtime fluticasone furoate-vilanterol 200-25 MCG/ACT Aepb inhaler Commonly known as: BREO ELLIPTA HUMALOG IJ mepolizumab 100 MG Solr injection Commonly known as: NUCALA montelukast 10 MG tablet Commonly known as: SINGULAIR 1 tablet Orally Once a day for 30 day(s) omeprazole 40 MG delayed release capsule Commonly known as: PRILOSEC 1 capsule 30 minutes before morning meal Orally Once a day prazosin 1 MG capsule Commonly known as: MINIPRESS Take 1 capsule by mouth nightly ProAir RespiClick 108 (90 Base) MCG/ACT aerosol powder inhalation Generic drug: albuterol sulfate 2 puffs, Inhale, q6hr, PRN, # 1 EA, 0 Refill(s), Pharmacy: [address] promethazine 25 MG tablet Commonly known as: PHENERGAN Take 1 tablet by mouth 4 times daily as needed for Nausea tamsulosin 0.4 MG capsule Commonly known as: FLOMAX Take 1 capsule by mouth daily ziprasidone 40 MG capsule Commonly known as: GEODON * This list has 2 medication(s) that are the same as other medications prescribed for you. Read the directions carefully, and ask your doctor or other care provider to review them with you. STOP taking these medications Zinc 30 MG Tabs Where to Get Your Medications These medications were sent to [facility] [id number] [facility] [address] [facility] [phone] - F [phone] [address] [facility] [address] amoxicillin-clavulanate 875-125 MG per tablet doxycycline hyclate 100 MG capsule Patient Instructions: Activity: activity as tolerated Diet: regular diet Wound Care: none needed Other: None Disposition: Discharge to Home Follow up: Patient will be followed by Eliana Springer APRN - CNP in 1-2 weeks CORE MEASURES on Discharge (if applicable) JESSICA/ARB in CHF: NA Statin in CA: NA ASA in CA: NA Statin in CVA: NA Antiplatelet in CVA: NA Total time spent on discharge services: 40 minutes Including the following activities: Evaluation and Management of patient Discussion with patient and/or surrogate about current care plan Coordination with Case Management and/or Gate Supervisor Coordination of care with Consultants (if applicable) Coordination of care with Receiving Facility Physician (if applicable) Completion of DME forms (if applicable) Preparation of Discharge Summary Preparation of Medication Reconciliation Preparation of Discharge Prescriptions Signed: NATE Montenegro CNP, NATE INTERNAL MEDICINE HOSPITALIST-C 05/27/2025, 11:43 AM Please note that this chart was generated using voice recognition [employer] dictation software. Although every effort was made to ensure the accuracy of this automated treating engineer, some errors in treating engineer may have occurred. Cosigned by Irvin Obrien MD at 05/27/2025 12:49 PM EDT Associated attestation - Irvin Obrien MD - 05/27/2025 12:49 PM EDT Images from the original note were not included. [address] [place], [place], [address] Attestation Patient: Thomas Petty Date of Admission: 05/25/2025 5:23 PM Hospital Day # 2 Date of Evaluation: 05/27/2025 I personally evaluated and examined the patient [id number] in conjunction with the PA/INTERNAL MEDICINE HOSPITALIST and agree with the management and dispostition of the patient. Please see the PA/INTERNAL MEDICINE HOSPITALIST's note for full details. My greenfield findings are: Admission date: 05/25/2025 Discharge date: 05/27/2025 Principle Diagnosis: Acute pneumonia Exam: GEN: Awake, alert and oriented x3. EYES: EOMI, pupils equal NECK: Supple. No lymphadenopathy. No carotid bruit CVS: regular rate and rhythm, no audible murmur PULM: CTA, no wheezes, rales or rhonchi, no acute respiratory distress ABD: Bowels sounds normal. Abdomen is soft. No distention. no tenderness to palpation. EXT: no edema bilaterally . No calf tenderness. NEURO: Moves all extremities. Motor and sensory are grossly intact SKIN: No rashes. No skin lesions. Disposition: Discharge to Home Follow Up: Follow up with Eliana Springer APRN - CNP in 1-2 weeks Total time spent on discharge services: 40 minutes Including the following activities: Evaluation and Management of patient Discussion with patient and/or surrogate about current care plan Coordination with Case Management and/or Gate Supervisor Coordination of care with Consultants (if applicable) Coordination of care with Receiving Facility Physician (if applicable) Completion of DME forms (if applicable) Preparation of Discharge Summary Preparation of Medication Reconciliation Preparation of Discharge Prescriptions If there are any worsening or concerning signs or symptoms, patient will report to the ED and/or contact EMS-[id number] for immediate evaluation. Teach back method was used. All patient questions answered. Pt voiced understanding. Please note that this chart was generated using voice recognition [employer] dictation software. Although every effort was made to ensure the accuracy of this automated treating engineer, some errors in treating engineer may have occurred. Irvin Obrien MD 05/27/2025 12:49 PM documented in this encounter [facility] 05-25-2025 Note Previous cholecystec bright, splenectomy, and prior Whipple procedure which is unchanged with mild pneumobilia centrally in the liver which is unchanged. Perirenal stranding around both kidneys which is more prominent could be due to progressive scarring or early inflammatory changes with no hydronephrosis or urinary obstruction. Recommend correlating with a urinalysis. Previous appendectomy which is unchanged and mild constipation with no obstruction. Mild prostatic enlargement and radium implants in the gland which is unchanged Questionable small inguinal hernias bilaterally which is unchanged Previous vertebroplasty at L3 which is unchanged Mild bibasilar atelectasis or early infiltrates posteriorly which is more prominent. [facility] 04-28-2025 Telephone encounter Note April 28, 2025 3:07 PM Last encounter Visit on 03/31/2025 (with Kathy Bravo) [place] called regarding TRELL notes to be sent to [phone] for Insulin Pump supplies. Transmission successful. Madhuri Barlow Quality Control Microbiology Supervisor Medical Specialty [place] [facility] X20 [facility] 04-28-2025 Miscellaneous Notes April 28, 2025 3:07 PM Last encounter Visit on 03/31/2025 (with Kathy Bravo) [place] called regarding TRELL notes to be sent to [phone] for Insulin Pump supplies. Transmission successful. Madhuri Barlow Quality Control Microbiology Supervisor [facility] X20 documented in this encounter [facility] 04-03-2025 Telephone encounter Note Records sent (egd, pathology and operative report) [facility] 04-03-2025 Miscellaneous Notes Records sent (egd, pathology and operative report) Pt is calling to inform that his employer needs additional info for his EGD/documentation from before procedure and the Biopsy / Operative Note from after the procedure, pt state the information can be uploaded to his MyChart and he can get it to his employer. Contact info: [phone] documented in this encounter [facility] 04-03-2025 Telephone encounter Note Pt is calling to inform that his employer needs additional info for his EGD/documentation from before procedure and the Biopsy / Operative Note from after the procedure, pt state the information can be uploaded to his MyChart and he can get it to his employer. Contact info: [phone] [facility] 03-31-2025 Note [facility] 03-31-2025 History of Present illness Narrative Images from the original note were not included. REASON FOR CONSULTATION: Pancreatic diabetes December 24, 2024 Virtual visit I have communicated my name and active licensure. The patient's identity and physical location were verified at the time of this visit. Either the patient or their legal sales representative girls' apparel has been informed of the risks and [...] 4 tablets by mouth as needed. Insulin [place], Disposable, (BD ULTRAFINE III MINI PEN) 31 gauge x 3/16 Use with insulin 5 times daily [id number]-[id number]-yzhmrtq (CREON 36) 36,000-114,000- 180,000 unit delayed release [...] PRN, # 1 EA, 0 Refill(s), Pharmacy: [address] amitriptyline (ELAVIL) 50 mg tablet Take 1 tablet by mouth daily at bedtime. amLODIPine (NORVASC) 2.5 mg tablet Take 1 tablet by mouth once daily. atorvastatin (LIPITOR) 40 mg tablet Take 1 tablet by mouth once daily. azelastine 0.1% nasal spray Use 1 Gravel Switch in each nostril two times a day. [...] the [employer]) - [employer] for supplies - iLet and humalog - sugars a bit worse with the steroids - will plan for changing supplies every 2 days - will bolus small breakfast for coffee - bolus a bit larger when he eats the bigger breakfast 3 month FU Kathy Bravo MD March 31, 2025 documented in this encounter [facility] 03-31-2025 Telephone encounter Note March 31, 2025 9:54 AM Last encounter Visit on 12/24/2024 (with Kathy Bravo) Thomas Petty called regarding needing an appointment in order to have his supplies shipped from [employer]. Per patient his insurance, he needs to be seen every 3 months in order to continue getting supplies so his 12/24/24 notes are no longer valid. Patient was originally transferred from the front office manager to be helped with being scheduled soon. Please advise. Stephanie Hopson Quality Control Microbiology Supervisor II Diabetes & Endocrinology X-20 [facility] 03-31-2025 Miscellaneous Notes March 31, 2025 9:54 AM Last encounter Visit on 12/24/2024 (with Kathy Bravo) Thomas Petty called regarding needing an appointment in order to have his supplies shipped from [employer]. Per patient his insurance, he needs to be seen every 3 months in order to continue getting supplies so his 12/24/24 notes are no longer valid. Patient was originally transferred from the front office manager to be helped with being scheduled soon. Please advise. Stephanie Hopson Quality Control Microbiology Supervisor II Diabetes & Endocrinology X-20 documented in this encounter [facility] 03-18-2025 Telephone encounter Note Received request for TRELL Notes from [employer] via fax Sent notes from 12-24-[address] Bravo [phone] Transmitted successfully Katherin Justice Quality Control Microbiology Supervisor II Endocrinology & Metabolism [place] [facility] X-20, F-20 [facility] 03-18-2025 Miscellaneous Notes Received request for TRELL Notes from [facility] via fax Sent notes from 12-24-[address] Bravo [phone] Transmitted successfully Katherin Justice Quality Control Microbiology Supervisor Endocrinology & Metabolism [place] [facility] X-20, F-20 documented in this encounter [facility] 03-04-2025 Miscellaneous Notes March 04, 2025 4:07 PM Last encounter Visit on 12/24/2024 (with Kathy Bravo) Thomas Petty called regarding asking to send his TRELL notes of 12/24/2024 to [facility] at [phone]. Transmitted successfully. Madhuri Barlow Quality Control Microbiology Supervisor Medical Specialty [facility] X20 documented in this encounter [facility] 03-04-2025 Telephone encounter Note March 04, 2025 4:07 PM Last encounter Visit on 12/24/2024 (with Kathy Bravo) Thomas Petty called regarding asking to send his TRELL notes of 12/24/2024 to [facility] at [phone]. Transmitted successfully. Madhuri Barlow Quality Control Microbiology Supervisor Medical Specialty [facility] X20 [facility] 02-24-2025 Hospital Discharge instructions Farida Gibbons DO - 02/24/2025 12:33 PM EDT Continue to apply ice to areas of discomfort, okay to take Tylenol for pain control elevate when able, follow-up with your primary care provider. documented in this encounter [facility] 02-17-2025 Telephone encounter Note Images from the original note were not included. 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 MAY REPEAT AFTER 15 MINUTES USING A NEW DEVICE IF THERE IS NO RESPONSE. Hemoglobin A1c: None on file in the last 12 months TSH: None on file in the last 12 months Free T3: None on file in the last 12 months Free T4: None on file in the last 12 months Thyroglobulin: None on file in the last 12 months Vitamin D: None on file in the last 12 months Latest Ref Rng & Units 09/03/2024 09/02/2024 09/01/2024 Hematocrit Hematocrit 39.0 - 51.0 % 25.9 25.0 24.5 Latest Ref Rng & Units 09/03/2024 09/02/2024 09/01/2024 Creatinine Creatinine 0.73 - 1.22 mg/dL 0.82 0.84 0.73 Latest Ref Rng & Units 09/03/2024 09/02/2024 09/01/2024 eGFR EGFR >=60 mL/min/1.73m 104 104 108 Latest Ref Rng & Units 09/03/2024 09/02/2024 09/01/2024 Potassium Potassium 3.7 - 5.1 mmol/L 4.3 3.4 4.0 Testosterone: None on file in the last 12 months IGF: None on file in the last 12 months Prolactin: None on file in the last 12 months [facility] 02-17-2025 Miscellaneous Notes Images from the original note were not included. 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 MAY REPEAT AFTER 15 MINUTES USING A NEW DEVICE IF THERE IS NO RESPONSE. Hemoglobin A1c: None on file in the last 12 months TSH: None on file in the last 12 months Free T3: None on file in the last 12 months Free T4: None on file in the last 12 months Thyroglobulin: None on file in the last 12 months Vitamin D: None on file in the last 12 months Latest Ref Rng & Units 09/03/2024 09/02/2024 09/01/2024 Hematocrit Hematocrit 39.0 - 51.0 % 25.9 25.0 24.5 Latest Ref Rng & Units 09/03/2024 09/02/2024 09/01/2024 Creatinine Creatinine 0.73 - 1.22 mg/dL 0.82 0.84 0.73 Latest Ref Rng & Units 09/03/2024 09/02/2024 09/01/2024 eGFR EGFR >=60 mL/min/1.73m 104 104 108 Latest Ref Rng & Units 09/03/2024 09/02/2024 09/01/2024 Potassium Potassium 3.7 - 5.1 mmol/L 4.3 3.4 4.0 Testosterone: None on file in the last 12 months IGF: None on file in the last 12 months Prolactin: None on file in the last 12 months documented in this encounter [facility] 01-23-2025 Nurse Note AMBULATORY PATIENT EDUCATION NOTE TOPIC: GI PROCEDURES: Esophagogastroduodenoscopy(EGD) with or without biopies based on clinical findings, removal of polyps or lesions READINESS TO LEARN INSTRUCTION PROVIDED TO: Patient, readness to learn accessed prior to procedure and Patient and family member COGNITIVE ABILITY: Alert and oriented PTED MOTIVATION TO LEARN: Eager Interested FAMILY SUPPORT: High - Very involved in pt care IPATIENT LEARNS BEST BY: Individual Instruction Verbal Instruction FACTORS AFFECTING LEARNING: None PHYSICAL LIMITATIONS AFFECTING LEARNING: None LEARNING RESPONSE METHOD OF INSTRUCTION: Individual instruction PATIENT / FAMILY RESPONSE: Verbalizes understanding of: WORSENING CONDITION-Signs and symptoms of a worsening condition that warrant a call to the physician FOLLOW-UP PLAN: Patient instructed to call with any further issues Recommend - Recommend continued instruction and follow up as directed Contact information given. SUPPLEMENTAL MATERIAL: Procedure Discharge Instructions REFERRAL (RECOMMENDATION): None [facility] 01-23-2025 Nurse Note AMBULATORY PATIENT EDUCATION NOTE TOPIC: GI PROCEDURES: Esophagogastroduodenoscopy(EGD) with or without biopies based on clinical findings, removal of polyps or lesions READINESS TO LEARN INSTRUCTION PROVIDED TO: Patient, readness to learn accessed prior to procedure and Patient and family member COGNITIVE ABILITY: Alert and oriented PTED MOTIVATION TO LEARN: Eager Interested FAMILY SUPPORT: High - Very involved in pt care IPATIENT LEARNS BEST BY: Individual Instruction Verbal Instruction FACTORS AFFECTING LEARNING: None PHYSICAL LIMITATIONS AFFECTING LEARNING: None LEARNING RESPONSE METHOD OF INSTRUCTION: Individual instruction PATIENT / FAMILY RESPONSE: Verbalizes understanding of: WORSENING CONDITION-Signs and symptoms of a worsening condition that warrant a call to the physician FOLLOW-UP PLAN: Patient instructed to call with any further issues Recommend - Recommend continued instruction and follow up as directed Contact information given. SUPPLEMENTAL MATERIAL: Procedure Discharge Instructions REFERRAL (RECOMMENDATION): None PRE OP LEARNING ASSESSMENT PROCEDURE/SURGERY: GI PROCEDURES: EGD READINESS TO LEARN COGNITIVE ABILITY: Alert and oriented MOTIVATION TO LEARN: Eager FAMILY SUPPORT: High - Very involved in pt care PATIENT LEARNS BEST BY: Individual Instruction FACTORS AFFECTING LEARNING: None PHYSICAL LIMITATIONS AFFECTING LEARNING: None Electronically Signed By: Carmel Kim RN In Department: GASTROENTEROLOGY documented in this encounter [facility] 01-23-2025 Note Q3 Patient Name: Thomas Petty Procedure Date: 01/23/2025 3:08 PM Date of : 1970 Admit Type: Outpatient Age: 54 Gender: Male Note Status: Finalized Attending MD: Dariusz Pratt MD, [id number] Procedure: Upper GI endoscopy Indications: Epigastric abdominal pain Providers: Dariusz Pratt MD Patient Profile: This is a 54 year old male. Referring Physician: Kassidy Jacobson MD (Referring MD) Medicines: Monitored Anesthesia [...] changes classified as Dong's stage C3-M5 per [place] criteria present in the lower third of [...] changes classified as Dong's stage C3-M5 per [place] criteria. Biopsied. - Bile gastritis, characterized by erythema. Biopsied. Estimated Blood Loss: Estimated blood loss: none. Recommendation: - Await pathology results. - Patient has a contact number available for emergencies. The signs and symptoms of potential delayed complications were discussed with the patient. Return to normal activities tomorrow. Written discharge instructions were provided to the patient. Procedure Code(s): --- Professional --- 28260 Diagnosis Code(s): --- Professional --- K22.70 K29.60 Z90.411 Z90.49 R10.13 CPT copyright 2020 [employer]. All rights reserved. Attending Participation: I personally performed the entire procedure. Scope In: 3:27:59 PM Scope Out: 3:39:36 PM MD Dariusz Josue MD 01/23/2025 3:43:43 PM This report has been signed electronically by Dariusz Pratt MD Number of Addenda: 0 Note Initiated On: 01/23/2025 3:08 PM [facility] 01-23-2025 Nurse Note PRE OP LEARNING ASSESSMENT PROCEDURE/SURGERY: GI PROCEDURES: EGD READINESS TO LEARN COGNITIVE ABILITY: Alert and oriented MOTIVATION TO LEARN: Eager FAMILY SUPPORT: High - Very involved in pt care PATIENT LEARNS BEST BY: Individual Instruction FACTORS AFFECTING LEARNING: None PHYSICAL LIMITATIONS AFFECTING LEARNING: None Electronically Signed By: Carmel Kim RN In Department: GASTROENTEROLOGY [facility] 01-16-2025 Nurse Note GI Pre-Procedure Spoke with patient: Yes Confirmed date scheduled and patient report time: Yes Procedure Planned:Esophagogastroduodenoscopy (EGD) with or without biopies based on clinical findings, removal of polyps or lesions Is the patient on blood thinners?no Procedure Instructions given to patient: Yes, and they verbalized their understanding of instructions given Patient instructed to take prescribed preparation prior to procedure:Yes, and they verbalized their understanding of instructions given Patient instructed to have family/friend present for procedure 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 and They verbalized their understanding and agree to have a responsible adult accompany the patient to their procedure and remain in the endoscopy area. Any barriers to Patient learning: Patient/Patient Stonecutter Assistant responded appropriately on phone. Type of instruction given: Verbal by telephone contact. Bacilio Nowak RN [facility] 01-16-2025 Nurse Note GI Pre-Procedure Spoke with patient: Yes Confirmed date scheduled and patient report time: Yes Procedure Planned:Esophagogastroduodenoscopy (EGD) with or without biopies based on clinical findings, removal of polyps or lesions Is the patient on blood thinners?no Procedure Instructions given to patient: Yes, and they verbalized their understanding of instructions given Patient instructed to take prescribed preparation prior to procedure:Yes, and they verbalized their understanding of instructions given Patient instructed to have family/friend present for procedure 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 and They verbalized their understanding and agree to have a responsible adult accompany the patient to their procedure and remain in the endoscopy area. Any barriers to Patient learning: Patient/Patient Stonecutter Assistant responded appropriately on phone. Type of instruction given: Verbal by telephone contact. Bacilio Nowak RN documented in this encounter [facility] 01-05-2025 Nurse Note AMBULATORY PATIENT EDUCATION NOTE TOPIC: GI PROCEDURES: Esophagogastroduodenoscopy(EGD) for control of bleeding,dilation(any means),imaging,tube placement READINESS TO LEARN INSTRUCTION PROVIDED TO: Patient and family member COGNITIVE ABILITY: Alert and oriented PTED MOTIVATION TO LEARN: Interested FAMILY SUPPORT: High - Very involved in pt care IPATIENT LEARNS BEST BY: Verbal Instruction FACTORS AFFECTING LEARNING: None PHYSICAL LIMITATIONS AFFECTING LEARNING: None LEARNING RESPONSE METHOD OF INSTRUCTION: Individual instruction PATIENT / FAMILY RESPONSE: Verbalizes understanding of: WORSENING CONDITION-Signs and symptoms of a worsening condition that warrant a call to the physician FOLLOW-UP PLAN: Complete - No need for follow-up SUPPLEMENTAL MATERIAL: Procedure Discharge Instructions REFERRAL (RECOMMENDATION): None [facility] 01-05-2025 Nurse Note AMBULATORY PATIENT EDUCATION NOTE TOPIC: GI PROCEDURES: Esophagogastroduodenoscopy(EGD) for control of bleeding,dilation(any means),imaging,tube placement READINESS TO LEARN INSTRUCTION PROVIDED TO: Patient and family member COGNITIVE ABILITY: Alert and oriented PTED MOTIVATION TO LEARN: Interested FAMILY SUPPORT: High - Very involved in pt care IPATIENT LEARNS BEST BY: Verbal Instruction FACTORS AFFECTING LEARNING: None PHYSICAL [...] OP LEARNING ASSESSMENT PROCEDURE/SURGERY: GI PROCEDURES: EGD READINESS TO LEARN COGNITIVE ABILITY: Alert and oriented MOTIVATION TO LEARN: Interested FAMILY SUPPORT: None - Unavailable/disinterested PATIENT LEARNS BEST BY: Individual Instruction FACTORS AFFECTING LEARNING: None PHYSICAL LIMITATIONS AFFECTING LEARNING: None Electronically Signed By: Estelle Marvin RN In Department: GASTROENTEROLOGY documented in this encounter [facility] 01-05-2025 History and physical note PROCEDURAL SEDATION HISTORY AND PHYSICAL EXAM SERVICE DATE: 01/05/2025 SERVICE TIME: 1449 Subjective HPI: This is a 54 year old male who presents with Bowel issues, Dong's esophagus PAST ANESTHESIA HISTORY:No history of adverse event PAST MEDICAL HISTORY Diagnosis Date Dong esophagus Bipolar 1 disorder (HCC) Chronic pancreatitis (HCC) 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 01/05/2025 Yes atorvastatin (LIPITOR) 40 mg tablet Take 1 tablet by mouth once daily. 01/05/2025 Yes Fenofibrate (LOFIBRA) 54 mg tablet Take 1 tablet by mouth once daily. 01/05/2025 Yes tramadol HCl (TRAMADOL ORAL) Take by mouth. [...] (BAQSIMI) 3 mg/actuation nasal spray Use 1 Gravel Switch in the nose as needed. May repeat after 15 minutes using a new device if there is no response. glucose 4 gram chewable tablet Take 4 tablets by mouth as needed. Insulin [place], Disposable, (BD ULTRAFINE III MINI PEN) 31 gauge x 3/16 Use with insulin 5 times daily yxalgi-bwxzxodx-qjchvev (CREON 36) 36,000-114,000- 180,000 unit delayed release [...] PRN, # 1 EA, 0 Refill(s), Pharmacy: [address] amitriptyline (ELAVIL) 50 mg tablet Take 1 tablet by mouth daily at bedtime. azelastine 0.1% nasal spray Use 1 Gravel Switch in each nostril two times a day. [...] 60 mg by mouth every 12 hours. ferrous sulfate 325 mg (65 mg iron) tablet Take 325 mg by mouth once daily. ALLERGIES Allergen Reactions Codeine Hives Zofran [Ondansetron] Hives CARDIOVASCULAR:No chest pain, leg swelling and palpitations PULMONARY:No cough,wheezing and shortness of breath Objective PHYSICAL EXAM:The remainder of the physical exam is noncontributory AIRWAY: Airway Visualization of Uvula: Yes Mouth opening greater than 2 fingerbreadths: Yes Neck Full Range of Motion: Yes LUNGS: Lungs clear to auscultation CARDIAC: Regular rhythm,Regular rate Assessment/Plan ASA Class: II Patient OK for Sedation: Yes Sedation Goal: Moderate Provisional Diagnosis/Treatment Plan: Bowel issues, Dong's esophagus/ EGD Sedation Goal: Moderate SIGNATURE: Ajith Radford MD PATIENT NAME: Thomas Petty DATE: January 05, 2025 TIME: 2:49 PM Created 2023 [facility] Work Phone: 01-05-2025 History and physical note PROCEDURAL SEDATION HISTORY AND PHYSICAL EXAM SERVICE DATE: 01/05/2025 SERVICE TIME: 1449 Subjective HPI: This is a 54 year old male who presents with Bowel issues, Dong's esophagus PAST ANESTHESIA HISTORY:No history of adverse event PAST MEDICAL HISTORY Diagnosis Date Dong esophagus Bipolar 1 disorder (HCC) Chronic pancreatitis (HCC) 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 01/05/2025 Yes atorvastatin (LIPITOR) 40 mg tablet Take 1 tablet by mouth once daily. 01/05/2025 Yes Fenofibrate (LOFIBRA) 54 mg tablet Take 1 tablet by mouth once daily. 01/05/2025 Yes tramadol HCl (TRAMADOL ORAL) Take by mouth. [...] (BAQSIMI) 3 mg/actuation nasal spray Use 1 Gravel Switch in the nose as needed. May repeat after 15 minutes using a new device if there is no response. glucose 4 gram chewable tablet Take 4 tablets by mouth as needed. Insulin [place], Disposable, (BD ULTRAFINE III MINI PEN) 31 gauge x 3/16 Use with insulin 5 times daily lkuxkl-qchotxii-txvidtv (CREON 36) 36,000-114,000- 180,000 unit delayed release [...] PRN, # 1 EA, 0 Refill(s), Pharmacy: [address] amitriptyline (ELAVIL) 50 mg tablet Take 1 tablet by mouth daily at bedtime. azelastine 0.1% nasal spray Use 1 Gravel Switch in each nostril two times a day. [...] 60 mg by mouth every 12 hours. ferrous sulfate 325 mg (65 mg iron) tablet Take 325 mg by mouth once daily. ALLERGIES Allergen Reactions Codeine Hives Zofran [Ondansetron] Hives CARDIOVASCULAR:No chest pain, leg swelling and palpitations PULMONARY:No cough,wheezing and shortness of breath Objective PHYSICAL EXAM:The remainder of the physical exam is noncontributory AIRWAY: Airway Visualization of Uvula: Yes Mouth opening greater than 2 fingerbreadths: Yes Neck Full Range of Motion: Yes LUNGS: Lungs clear to auscultation CARDIAC: Regular rhythm,Regular rate Assessment/Plan ASA Class: II Patient OK for Sedation: Yes Sedation Goal: Moderate Provisional Diagnosis/Treatment Plan: Bowel issues, Dong's esophagus/ EGD Sedation Goal: Moderate SIGNATURE: Ajith Radford MD PATIENT NAME: Thomas Petty DATE: January 05, 2025 TIME: 2:49 PM 2023 documented in this encounter [facility] 01-05-2025 Nurse Note PRE OP LEARNING ASSESSMENT PROCEDURE/SURGERY: GI PROCEDURES: EGD READINESS TO LEARN COGNITIVE ABILITY: Alert and oriented MOTIVATION TO LEARN: Interested FAMILY SUPPORT: None - Unavailable/disinterested PATIENT LEARNS BEST BY: Individual Instruction FACTORS AFFECTING LEARNING: None PHYSICAL LIMITATIONS AFFECTING LEARNING: None Electronically Signed By: Estelle Marvin RN In Department: GASTROENTEROLOGY [facility] 12-29-2024 Telephone encounter Note [facility] 12-24-[address] Bravo Received DWO for Infusion Supplies from [employer] Sent to provider for review, signature, completion Katherin Justice Quality Control Microbiology Supervisor II Endocrinology & Metabolism [facility] X-20, F-20 [facility] 12-29-2024 Miscellaneous Notes [facility] 12-24-[address] Bravo Received DWO for Infusion Supplies from [employer] Sent to provider for review, signature, completion Katherin Justice Quality Control Microbiology Supervisor Endocrinology & Metabolism [facility] X-20, F-20 documented in this encounter [facility] 12-29-2024 Nurse Note GI Pre-Procedure Spoke with patient: Yes Confirmed date scheduled and patient report time: Yes Procedure Planned:Esophagogastroduodenoscopy (EGD) with or without biopies based on clinical findings, removal of polyps or lesions Is the patient on blood thinners?no Procedure Instructions given to patient: Yes, and they verbalized their understanding of instructions given Patient instructed to take prescribed preparation prior to procedure:Yes, and they verbalized their understanding of instructions given Patient instructed to have family/friend present for procedure 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 and They verbalized their understanding and agree to have a responsible adult accompany the patient to their procedure and remain in the endoscopy area. Any barriers to Patient learning: Patient/Patient Stonecutter Assistant responded appropriately on phone. Type of instruction given: Verbal by telephone contact. Claudine Mendez RN [facility] 12-29-2024 Nurse Note GI Pre-Procedure Spoke with patient: Yes Confirmed date scheduled and patient report time: Yes Procedure Planned:Esophagogastroduodenoscopy (EGD) with or without biopies based on clinical findings, removal of polyps or lesions Is the patient on blood thinners?no Procedure Instructions given to patient: Yes, and they verbalized their understanding of instructions given Patient instructed to take prescribed preparation prior to procedure:Yes, and they verbalized their understanding of instructions given Patient instructed to have family/friend present for procedure 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 and They verbalized their understanding and agree to have a responsible adult accompany the patient to their procedure and remain in the endoscopy area. Any barriers to Patient learning: Patient/Patient Stonecutter Assistant responded appropriately on phone. Type of instruction given: Verbal by telephone contact. Claudine Mendez RN documented in this encounter [facility] 12-24-2024 Note [facility] 12-24-2024 History of Present illness Narrative Images from the original note were not included. REASON FOR CONSULTATION: Pancreatic diabetes December 24, 2024 Virtual visit I have communicated my name and active licensure. The patient's identity and physical location were verified at the time of this visit. 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 HISTORY Mr Thomas Petty is a 53 yo post pancreatectomy diabetes - some sulfur burps, EGD - pretty sick right now - some cortisone shots - humalog in the iLet - TV dinner and banana, healthy choice Approximate age at diagnosis of diabetes: 2021 [...] on file. Current Outpatient Medications Medication Sig insulin lispro (HUMALOG U-100 INSULIN) 100 unit/mL [...] (BAQSIMI) 3 mg/actuation nasal spray Use 1 Gravel Switch in the nose as needed. May repeat after 15 minutes using a new device if there is no response. glucose 4 gram chewable tablet Take 4 tablets by mouth as needed. Insulin [place], Disposable, (BD ULTRAFINE III MINI PEN) 31 gauge x 3/16 Use with insulin 5 times daily yqdjor-irlbnpzh-rhhhpey (CREON 36) 36,000-114,000- 180,000 unit delayed release [...] PRN, # 1 EA, 0 Refill(s), Pharmacy: [address] amitriptyline (ELAVIL) 50 mg tablet Take 1 tablet by mouth daily at bedtime. amLODIPine (NORVASC) 2.5 mg tablet Take 1 tablet by mouth once daily. atorvastatin (LIPITOR) 40 mg tablet Take 1 tablet by mouth once daily. azelastine 0.1% nasal spray Use 1 Gravel Switch in each nostril two times a day. [...] visit: Core Review of Systems (Submitted on 12/19/2024) Fever : No Night sweats: No Recent unintentional weight change: No Nasal Congestion: Yes Hearing Loss: Yes Vision Disturbance: Yes Difficulty Breathing?: Yes Chest pain: No Irregular heartbeat: No Leg [...] the [employer]) - [employer] for supplies - iLet and humalog - sugars worsened with illness and cortisone shots - asked to avoid orange and banana, high glycemic index fruits 3 month FU Kathy Bravo MD December 24, 2024 documented in this encounter [facility] 12-23-2024 History of Present illness Narrative virtual visit of 30 min duration.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 medications for 30 days per the letter. Discussed with provider, who agrees to supply a 21 day of Tramadol 50 mg (beginning after his 7 day supply from the ER) and a 30 day supply of Tramadol 100 mg. Patient will be informed. RX form ER not on patient OARRS, spoke with [facility] in [place] and verified that patient received a 7 day supply on 04/02/24 from [facility], provider. Called patient and informed that refills will be sent to his pharmacy, a 21 day supply of the Tramaold 50 mg to fill on 04/09/24 and a 30 day supply of the Tramadol ER. PVU. documented in this encounter [facility] 04-03-2024 Telephone encounter Note Patient asked if we were going to provide his medications for 30 days per the letter. Discussed with provider, who agrees to supply a 21 day of Tramadol 50 mg (beginning after his 7 day supply from the ER) and a 30 day supply of Tramadol 100 mg. Patient will be informed. RX form ER not on patient OARRS, spoke with [facility] in [place] and verified that patient received a 7 day supply on 04/02/24 from [facility] provider. Called patient and informed that refills will be sent to his pharmacy, a 21 day supply of the Tramaold 50 mg to fill on 04/09/24 and a 30 day supply of the Tramadol ER. PVU. [facility] 04-02-2024 Miscellaneous Notes Thomas called and states he is in the ER due to a broken toe. He states he called the lab where the UDS is run and the machine is down. I asked him how he was able to get the number to the lab and he said he is a disabled vet and he has access to phone numbers of labs. He states the ER doctor will cover his Tramadol prescription until next week. He is concerned that he tested negative for benzodiazepines and he takes klonopin. Spoke with [facility] lab, there was a delay in the UDS results from [facility]. The TOOL DISTRIBUTOR at [facility] states that they spoke with Norm from [facility] and there was an instrument issue causing a delay in the results. He added that Mr. Petty has called him five times. It is unknown how patient got the number for [facility] lab. Called Mr. Petty that calling the [facility] lab 5 times is inappropriate. Explained further that there was an issue with their instruments that is beyond anyone's control. Patient than added that he received an RX from the ER doctor at [facility] today for Tramadol 50 mg, twice a day for 7 days. He complained that this is not his usual dose for the Tramadol. Explanation given to patient that it will help with his pain while he is waiting for his UDS results to receive his regular medications, also explained to patient that if the RX was written for 7 days, the pharmacy may be unable to fill a new RX for 7 days. Patient argued that he was going to take the RX from the ER back to the pharmacy if that was going to be an issue. Patient then argued that technical proposal writer said we would not write a prescription for his meds once the UDS results came back. Advised patient that is not what was said, he apologizes that he just misunderstood. Also advised patient that if he continued to argue with staff while we are helping him to continue receiving his pain medications due to a no show clinic appointment that we can recommend discharging him from the practice. Patient apologizes and will wait to hear from us tomorrow. All of these discussions with Mr. Petty have been within [facility]. Patient calls back, he states he called his insurance and they did not run the ER RX Tramadol through his insurance. Prior to patient calling, Slime Romano CNP advised that we will not write for patient's Tramadol until he is seen in the office on 04/09/24, she will discuss patient's medications and treatment plan with him at that time. Patient was informed of this when he called about his insurance. Received a call from [facility]. Patient called there asking to become a patient, stating that it was a shit show in [place]. Dr. Stratton- review notes. Recommend patient be discharged from [facility] pain management for inappropriate behavior. documented in this encounter [facility] 04-02-2024 Telephone encounter Note Thomas called and states he is in the ER due to a broken toe. He states he called the lab where the UDS is run and the machine is down. I asked him how he was able to get the number to the lab and he said he is a disabled vet and he has access to phone numbers of labs. He states the ER doctor will cover his Tramadol prescription until next week. He is concerned that he tested negative for benzodiazepines and he takes klonopin. [facility] 04-02-2024 Telephone encounter Note Spoke with [facility] lab, there was a delay in the UDS results from . The TOOL DISTRIBUTOR at [facility] states that they spoke with Norm from [facility] and there was an instrument issue causing a delay in the results. He added that Mr. Petty has called him five times. It is unknown how patient got the number for [facility] lab. Called Mr. Petty that calling the [facility] lab 5 times is inappropriate. Explained further that there was an issue with their instruments that is beyond anyone's control. Patient than added that he received an RX from the ER doctor at [facility] today for Tramadol 50 mg, twice a day for 7 days. He complained that this is not his usual dose for the Tramadol. Explanation given to patient that it will help with his pain while he is waiting for his UDS results to receive his regular medications, also explained to patient that if the RX was written for 7 days, the pharmacy may be unable to fill a new RX for 7 days. Patient argued that he was going to take the RX from the ER back to the pharmacy if that was going to be an issue. Patient then argued that technical proposal writer said we would not write a prescription for his meds once the UDS results came back. Advised patient that is not what was said, he apologizes that he just misunderstood. Also advised patient that if he continued to argue with staff while we are helping him to continue receiving his pain medications due to a no show clinic appointment that we can recommend discharging him from the practice. Patient apologizes and will wait to hear from us tomorrow. All of these discussions with Mr. Petty have been within [facility]. [employer] [facility] 04-02-2024 Telephone encounter Note Patient calls back, he states he called his insurance and they did not run the ER RX Tramadol through his insurance. Prior to patient calling, Slime Romano CNP advised that we will not write for patient's Tramadol until he is seen in the office on 04/09/24, she will discuss patient's medications and treatment plan with him at that time. Patient was informed of this when he called about his insurance. [employer] [facility] 04-02-2024 Telephone encounter Note Received a call from [facility]. Patient called there asking to become a patient, stating that it was a shit show in [place]. [employer] [facility] 04-02-[address] Stratton- review notes. Recommend patient be discharged from [facility] pain management for inappropriate behavior. [facility] 03-31-2024 Miscellaneous Notes He called and lvm over the weekend and spoke with Lachelle about his UDS done last week. I spoke with him and he wanted to know if Dr. Stratton had filled his meds. He said Lachelle told him surgery was done at 10am and she would ask Dr. Stratton to fill his meds and I told him she didn't say that I was sitting right here when he called. I told him the doctor was in surgery til 12. He questioned why his UDS wasn't done it should only take 1 day, I told him when he was here last week I told him it could take a couple weeks to get his results. And Eliel said she would not fill any meds until she gets results. He argued about so many questions and asked to speak with the doctor and the nurse and the air intelligence officer documented in this encounter [facility] 03-31-2024 Telephone encounter Note He called and lvm over the weekend and spoke with Lachelle about his UDS done last week. I spoke with him and he wanted to know if Dr. Stratton had filled his meds. He said Lachelle told him surgery was done at 10am and she would ask Dr. Stratton to fill his meds and I told him she didn't say that I was sitting right here when he called. I told him the doctor was in surgery til 12. He questioned why his UDS wasn't done it should only take 1 day, I told him when he was here last week I told him it could take a couple weeks to get his results. And Eliel said she would not fill any meds until she gets results. He argued about so many questions and asked to speak with the doctor and the nurse and the air intelligence officer [facility] 03-25-2024 History of Present illness Narrative Called today for the second time requesting a sooner appointment. Informed we are totally booked but we would give him a call should we get any cancellations. He is again requesting to speak to the air intelligence officer. Valentina Dietz RN 03/25/24 2919 documented in this encounter [facility] 03-17-2024 Hospital Discharge instructions Tegan Arita DO - 03/17/2024 4:08 PM EDT Continue watching your symptoms. If your symptoms recur I would recommend following up with your family doctor and possibly get another stress test. Return to the emergency department if symptoms get worse. The following attachments cannot be sent through Care Everywhere.Chest Pain (Namibian)documented in this encounter [facility] 02-25-2024 History of Present illness Narrative HPI: Back Pain This is a chronic problem. [...] The pain is at a severity of 6/10. The pain is moderate. The symptoms are [...] and has tried and failed oral medications. Gross continues to have thoracic pain and also cervicalgia radiating down the upper extremities. He has not had any cervical imaging it. Or any physical therapy. His pain medications is helping him function. He has had pain in his neck ever since activities and injuries during his time in service and in [place]. Patient denies any new neurological symptoms. No bowel or bladder incontinence, no weakness, and no falling. Review of OARRS does not show any aberrant prescription behavior. Medication is helping the patient stay active. Patient denies any side effects and reports adequate analgesia. No sign of misuse/abuse. Past Medical History: Diagnosis Date Bipolar disorder ([facility]) Chronic pain disorder Chronic pancreatitis ([facility]) Diabetes mellitus type 2, controlled ([facility]) H. pylori infection Low back pain Neck pain PTSD (post-traumatic stress disorder) Past Surgical History: Procedure Laterality Date #1 Bilateral Thoracic Medial branch block T7-8 and T8-9 Bilateral 10/08/2023 Performed by Joana Stratton MD at [facility] #2 Bilateral Thoracic Medial Branch Block T7-8 and T8-9 Bilateral 11/26/2023 Performed by Joana Stratton MD at [facility] APPENDECTOMY Bilateral thoracic Radiofrequency ablation T7-8 and T8-9 Bilateral 01/14/2024 Performed by Joana Stratton MD at [facility] FIXATION KYPHOPLASTY GALLBLADDER SURGERY INJECTION BLOCK [...] evening. Take with meals., Disp: , Rfl: [START ON 02/29/2024] traMADoL (ULTRAM) 50 mg tablet, Take 1-2 tabs po bid prn., Disp: 120 tablet, Rfl: 0 [START ON 03/02/2024] traMADol ER (ULTRAM-ER) 100 mg 24 hr tablet, Take 1 tablet (100 mg total) by mouth daily as needed for pain for up to 30 days., Disp: 30 tablet, Rfl: 0 ziprasidone (GEODON) injection, Inject 1 mL (20 mg total) into the appropriate muscle once., Disp: , Rfl: No family history on file. Social History Socioeconomic History Marital status: Spouse name: Not on file Number of children: Not on file Years of education: Not on file Highest education level: Not on file Occupational History Not on file Tobacco Use Smoking status: Never Smokeless tobacco: Never Vaping Use Vaping status: Never Used Substance and Sexual Activity Alcohol use: Never Drug use: Never Sexual activity: Not on file Other Topics Concern Not on file Social History Narrative Not on file Social Determinants of Health Financial Resource Strain: Low Risk (04/23/2023) Received from [facility] Overall Financial Resource Strain (CARDIA) Difficulty of Paying Living Expenses: Not hard at all Food Insecurity: No Food Insecurity (02/25/2024) Hunger Screening Food Insecurity - Worry: Never True Food Insecurity - Inability: Never True Transportation Needs: No Transportation Needs (02/07/2024) Received from [facility] PRAPARE - Transportation Lack of Transportation (Medical): No Lack of Transportation (Non-Medical): No Physical Activity: Not on file Stress: Not on file Social Connections: Not on file Interpersonal Safety: Not on file Housing Instability: Low Risk (02/07/2024) Received from [facility] Housing Stability Vital Sign Unable to Pay for Housing in the Last Year: No Number of Places Lived in the Last Year: 2 In the last 12 months, was there a time when you did not have a steady place to sleep or slept in a skilled nursing (including now)?: No Review of Systems: Review of Systems Constitutional: [...] Psychiatric/Behavioral: Negative. Allergic/Immunologic: Negative. Physical Exam: BP 112/78 Pulse 71 Resp 16 Ht 177.8 cm (5' 10 ) Wt 93 kg (205 lb) BMI 29.41 kg/m Limited range of motion of the cervical spine all directions due to pain Tender palpation cervical facet columns Intact sensorimotor function upper extremities Record/Diagnostics Review: As above, I did review the imaging. Assessment: 1. Cervical radiculitis 2. Postlaminectomy syndrome, lumbar region 3. Encounter for long-term opiate analgesic use 4. Cervicalgia Orders Placed This Encounter Procedures X-ray spine cervical 3 views or less Ambulatory referral to Physical Therapy (Non-[facility]) Treatment Plan: DISCUSSION: Treatment options discussed with patient and all questions answered to patient's satisfaction. OARRS Review: Reviewed and acceptable for medications prescribed. TREATMENT OPTIONS: Continue current medication management, has been stable and compliant. Patient is to return when medications are due. Will order a Cervical x-ray and PT for cervical radicular symptoms. Joana Stratton M.D. Scribe Statement: Scribed for and in the presence of JOANA STRATTON MD by Valentina Dietz Provider Statement: I, Joana Stratton personally performed the services described in the documentation, as scribed by Valentina Dietz in my presence, and it is both accurate and complete. Valentina Dietz RN 02/25/24 1233 Valentina Dietz RN 02/25/24 1237 documented in this encounter [facility] 01-21-2024 History of Present illness Narrative HPI: [...] Past Medical History: Diagnosis Date Bipolar disorder ([facility]) Chronic pain disorder Chronic pancreatitis ([facility]) Diabetes mellitus type 2, controlled ([facility]) H. pylori infection Low back pain Neck pain PTSD (post-traumatic stress disorder) Past Surgical History: Procedure Laterality Date #1 Bilateral Thoracic Medial branch block T7-8 and T8-9 Bilateral 10/08/2023 Performed by Joana Stratton MD at [facility] #2 Bilateral Thoracic Medial Branch Block T7-8 and T8-9 Bilateral 11/26/2023 Performed by Joana Stratton MD at [facility] APPENDECTOMY Bilateral thoracic Radiofrequency ablation T7-8 and T8-9 Bilateral 01/14/2024 Performed by Joana Stratton MD at [facility] FIXATION KYPHOPLASTY GALLBLADDER SURGERY INJECTION BLOCK SACROILIAC JOINT Bilateral 08/06/2023 Performed by Joana Stratton MD at [facility] PANCREAS SURGERY tumor removed PROSTATE SURGERY [...] RN 01/21/24 1335 documented in this encounter [employer] 12-24-2023 History of Present illness Narrative HPI: [...] the symptoms. The treatment provided no relief. Thomas comes to the office today for follow [...] Past Medical History: Diagnosis Date Bipolar disorder ([facility]) Chronic pain disorder Chronic pancreatitis ([facility]) H. pylori infection Low back pain Neck pain PTSD (post-traumatic stress disorder) Past Surgical History: Procedure Laterality Date #1 Bilateral Thoracic Medial branch block T7-8 and T8-9 Bilateral 10/08/2023 Performed by Joana Stratton MD at [facility] #2 Bilateral Thoracic Medial Branch Block T7-8 and T8-9 Bilateral 11/26/2023 Performed by Joana Stratton MD at [facility] APPENDECTOMY FIXATION KYPHOPLASTY GALLBLADDER SURGERY INJECTION BLOCK SACROILIAC JOINT Bilateral 08/06/2023 Performed by Joana Stratton MD at [facility] PANCREAS SURGERY tumor removed PROSTATE SURGERY [...] RN 12/24/23 1322 [facility] History of Present illness Narrative Called and stated he received no relief from the #1 MBB that was performed yesterday. He also states he had urinary incontinence one time. Denies loss of bowel control. Denies fever or chills. Informed to go to the ER or follow up with his PCP regarding the incontinence. Voices understanding. documented [facility] History of Present illness Narrative HPI: [...] the symptoms. The treatment provided no relief. Thomas comes to the office today for his [...] Past Medical History: Diagnosis Date Bipolar disorder ([facility]) Chronic pain disorder Chronic pancreatitis ([facility]) H. pylori infection Low back pain Neck pain PTSD (post-traumatic stress disorder) Past Surgical History: Procedure Laterality Date #1 Bilateral Thoracic Medial branch block T7-8 and T8-9 Bilateral 10/08/2023 Performed by Joana Stratton MD at [facility] APPENDECTOMY FIXATION KYPHOPLASTY GALLBLADDER SURGERY INJECTION BLOCK SACROILIAC JOINT Bilateral 08/06/2023 Performed by Joana Stratton MD at [facility] PANCREAS SURGERY tumor removed PROSTATE SURGERY [...] Scribed for and in the presence of Slime DALE by Valentina Dietz. Provider Statement: I, Slime Romano personally performed the services described in the documentation, as scribed by Valentina Dietz in my presence, and it is both accurate and complete. Valentina Dietz RN 11/21/23 1430 Valentina Dietz RN 11/21/23 1436 CHITO Montague 11/21/23 1442 documented in this encounter [facility] 10-24-2023 History of Present illness Narrative HPI: [...] the symptoms. The treatment provided no relief. Thomas comes to the office today for his [...] Past Medical History: Diagnosis Date Bipolar disorder ([facility]) Chronic pain disorder Chronic pancreatitis ([facility]) H. pylori infection Low back pain Neck pain PTSD (post-traumatic stress disorder) Past Surgical History: Procedure Laterality Date #1 Bilateral Thoracic Medial branch block T7-8 and T8-9 Bilateral 10/08/2023 Performed by Joana Stratton MD at [facility] APPENDECTOMY FIXATION KYPHOPLASTY GALLBLADDER SURGERY INJECTION BLOCK SACROILIAC JOINT Bilateral 08/06/2023 Performed by Joana Stratton MD at [facility] PANCREAS SURGERY tumor removed PROSTATE SURGERY [...] Scribed for and in the presence of Slime DALE by Valentina Dietz. Provider Statement: ISlime personally performed the services described in the documentation, as scribed by Valentina Dietz in my presence, and it is both accurate and complete. Valentina Dietz RN 10/24/23 1433 CHITO [place] 10/24/23 1500 documented in this [facility]23 History of Present illness Narrative Instructed on objectives and procedure of lexiscan/cardiolite stress test. documented in this encounter [facility] [employer] [facility] Evaluation + Plan note No data available for this section [facility] Evaluation note Diagnosis Diarrhea, unspecified type documented in this encounter [facility]* Diagnosis Preop cardiovascular exam Pre-operative cardiovascular examination Primary hypertension Unspecified essential hypertension Mixed hyperlipidemia Intermittent chest pain Chest pain, unspecified documented in this encounter [facility]* Diagnosis Other fatigue Chronic pain syndrome Anemia, unspecified type Low vitamin D level documented in this encounter [facility]* Diagnosis Nonspecific chest pain- Primary documented in this encounter [facility]* Diagnosis Cervical spinal stenosis Spinal stenosis in cervical region documented in this encounter [facility]* Diagnosis Thoracic myofascial strain, initial encounter- Primary Left wrist sprain, initial encounter Closed nondisplaced fracture of phalanx of left index finger, unspecified phalanx, initial encounter documented in this encounter [facility] ShopSociallyEvaluation note* Diagnosis Anemia, unspecified type Vitamin D deficiency Unspecified vitamin D deficiency Other fatigue Prostate cancer screening Special screening for malignant neoplasm of prostate documented in this encounter [facility]* Diagnosis Cyst and pseudocyst of pancreas- Primary documented in this encounter [facility] note* Diagnosis IPMN (intraductal papillary mucinous neoplasm)- Primary Neoplasm of unspecified nature of digestive system documented in this encounter [facility] note* Diagnosis Cyst and pseudocyst of pancreas documented in this encounter [facility] note* Diagnosis Other chronic pancreatitis (HCC)- Primary Epigastric pain Abdominal pain, epigastric documented in this encounter [facility] Table8Evalubee[facility] center note* Diagnosis Chest wall contusion, left, initial encounter- Primary Strain of tendon of left half of anterior chest wall documented in this encounter [facility]* Diagnosis Left-sided chest wall pain- Primary Painful respiration Rib contusion, left, sequela documented in this encounter [facility]* Diagnosis IPMN (intraductal papillary mucinous neoplasm)- Primary Neoplasm of unspecified nature of digestive system IPMN (intraductal papillary mucinous neoplasm) Neoplasm of unspecified nature of digestive system documented in this encounter [facility]* Diagnosis IPMN (intraductal papillary mucinous neoplasm)- Primary Neoplasm of unspecified nature of digestive system Preoperative examination Preoperative examination, unspecified IPMN (intraductal papillary mucinous neoplasm) Neoplasm of unspecified nature of digestive system documented in this encounter [facility]* Diagnosis Severe persistent asthma, unspecified whether complicated- Primary 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 note* Diagnosis Severe persistent asthma, unspecified [...] no recent flares. documented [facility] Diagnosis Severe persistent asthma, unspecified whether [...] system documented in this encounter [facility] note* Diagnosis Severe persistent asthma, unspecified [...] system documented in this encounter [facility] note* Diagnosis Severe persistent asthma, unspecified [...] of digestive system documented in this encounter [facility]* Diagnosis IPMN (intraductal papillary mucinous neoplasm)- [...] post-operative pain- Primary documented [facility]* Diagnosis Strain of neck muscle, initial encounter- Primary [facility] Diagnosis IPMN (intraductal papillary mucinous neoplasm)- [...] Primary Postsurgical hypoinsulinemia documented in [facility] Diagnosis IPMN (intraductal papillary mucinous neoplasm)- [...] (HCC) Postsurgical hypoinsulinemia [facility] Diagnosis IPMN (intraductal papillary mucinous neoplasm)- [...] of digestive system [facility] Diagnosis IPMN (intraductal papillary mucinous neoplasm)- [...] hypoinsulinemia documented in this encounter [facility] note* Diagnosis IPMN (intraductal papillary mucinous [...] Insulin pump status documented in this encounter [facility] note* Diagnosis Dysuria documented in this encounter [facility] note* Diagnosis Contusion of back, unspecified laterality, initial encounter- Primary Sprain of left hand, initial encounter Contusion of left elbow, initial encounter documented in this encounter [facility] note* Diagnosis Thoracic spondylosis- Primary Postlaminectomy syndrome, lumbar region Encounter for long-term opiate analgesic use Encounter for long-term (current) use of other medications [facility] Diagnosis Cervical radiculitis- Primary Brachial neuritis or radiculitis nos Postlaminectomy syndrome, lumbar region Encounter for long-term opiate analgesic use Encounter for long-term (current) use of other medications Cervicalgia [facility] Diagnosis Thoracic spondylosis without myelopathy- Primary Thoracic spondylosis without myelopathy- Primary Thoracic spondylosis without myelopathy [facility] Diagnosis Rib pain- Primary Chest pain, unspecified Abdominal pain, right upper quadrant documented in this encounter [facility] note* Diagnosis Postlaminectomy syndrome, lumbar region [facility] Diagnosis Thoracic spondylosis without myelopathy- Primary Thoracic spondylosis without myelopathy- Primary Postlaminectomy syndrome, lumbar region Lumbosacral spondylosis without myelopathy Thoracic spondylosis without myelopathy [facility] Diagnosis Thoracic spondylosis without myelopathy- Primary Postlaminectomy syndrome, lumbar region Encounter for long-term opiate analgesic use Encounter for long-term (current) use of other medications [facility] Diagnosis Thoracic spondylosis without myelopathy- Primary Postlaminectomy syndrome, lumbar region Encounter for long-term opiate analgesic use Encounter for long-term (current) use of other medications [facility] Diagnosis IPMN (intraductal papillary mucinous neoplasm)- [...] of digestive system [facility] Diagnosis Dysuria Vomiting and diarrhea Vomiting alone [facility] Diagnosis IPMN (intraductal papillary mucinous neoplasm)- [...] system documented in this encounter [facility] note* Diagnosis IPMN (intraductal papillary mucinous [...] system documented in this encounter [facility] note* Diagnosis IPMN (intraductal papillary mucinous [...] Insulin pump status [facility] Diagnosis Influenza A Influenza with other respiratory manifestations Chest tightness Other chest pain [facility] Diagnosis IPMN (intraductal papillary mucinous neoplasm)- [...] of digestive system [facility] Diagnosis IPMN (intraductal papillary mucinous neoplasm)- [...] of digestive system documented [facility] Diagnosis IPMN (intraductal papillary mucinous neoplasm)- [...] not stated as uncontrolled Severe persistent asthma (HCC) Unspecified asthma Obesity, Class I, BMI 30-34.9 Obesity, unspecified 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 DM type 1 (diabetes mellitus, type 1) (HCC) Type I (juvenile type) diabetes mellitus without mention of complication, not stated as uncontrolled Bipolar 1 disorder (HCC) Bipolar I disorder, most recent episode (or current) unspecified 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HCC) Posttraumatic stress disorder Acute postoperative respiratory insufficiency Other pulmonary insufficiency, not elsewhere classified, following trauma and surgery Insulin dose changed (HCC) Primary hypertension Unspecified essential hypertension Severe persistent asthma, unspecified whether complicated (HCC)- Primary 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 Dong's esophagus Other chronic pancreatitis (HCC) Fatty liver Other chronic nonalcoholic liver disease History of bowel resection Preoperative examination Preoperative examination, unspecified IPMN (intraductal papillary mucinous neoplasm) Neoplasm of unspecified nature of digestive system Family history of Dong's esophagus [facility]* Diagnosis Left lower quadrant abdominal pain History of diverticulitis [facility]* Diagnosis IPMN (intraductal papillary mucinous neoplasm)- [...] not stated as uncontrolled Severe persistent asthma (HCC) Unspecified asthma Obesity, Class I, BMI 30-34.9 Obesity, unspecified 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 DM type 1 (diabetes mellitus, type 1) (HCC) Type I (juvenile type) diabetes mellitus without mention of complication, not stated as uncontrolled Bipolar 1 disorder (HCC) Bipolar I disorder, most recent episode (or current) unspecified 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HCC) Posttraumatic stress disorder Acute postoperative respiratory insufficiency Other pulmonary insufficiency, not elsewhere classified, following trauma and surgery Insulin dose changed (HCC) Primary hypertension Unspecified essential hypertension Severe persistent asthma, unspecified whether complicated (HCC)- Primary 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 Dong's esophagus Other chronic pancreatitis (HCC) Fatty liver Other chronic nonalcoholic liver disease History of bowel resection Preoperative examination Preoperative examination, unspecified 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 [facility]* Diagnosis Left lower quadrant abdominal pain History of diverticulitis documented in this encounter [facility] note* Diagnosis Contusion of finger of left hand, unspecified finger, initial encounter- Primary documented in this encounter [facility] note* Diagnosis IPMN (intraductal papillary mucinous [...] not stated as uncontrolled Severe persistent asthma (HCC) Unspecified asthma Obesity, Class I, BMI 30-34.9 Obesity, unspecified 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 DM type 1 (diabetes mellitus, type 1) (HCC) Type I (juvenile type) diabetes mellitus without mention of complication, not stated as uncontrolled Bipolar 1 disorder (HCC) Bipolar I disorder, most recent episode (or current) unspecified 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HCC) Posttraumatic stress disorder Acute postoperative respiratory insufficiency Other pulmonary insufficiency, not elsewhere classified, following trauma and surgery Insulin dose changed (HCC) Primary hypertension Unspecified essential hypertension Severe persistent asthma, unspecified whether complicated (HCC)- Primary 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 Dong's esophagus Other chronic pancreatitis (HCC) Fatty liver Other chronic nonalcoholic liver disease History of bowel resection Preoperative examination Preoperative examination, unspecified 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 Insulin pump status documented [facility]* Diagnosis BPH with obstruction/lower urinary tract symptoms Hypertrophy of prostate with urinary obstruction and other lower urinary tract symptoms (LUTS) Incomplete bladder emptying documented in this encounter [facility] note* Diagnosis Acute pneumonia- Primary Right flank pain Abdominal pain, unspecified site Pneumonia of right lower lobe due to infectious organism RACQUEL (acute kidney injury) Acute kidney failure, unspecified Acute pneumonia Type 1 diabetes mellitus (HCC) Type I (juvenile type) diabetes mellitus without mention of complication, not stated as uncontrolled Bipolar 1 disorder (HCC) Bipolar I disorder, most recent episode (or current) unspecified RUQ pain Abdominal pain, right upper quadrant History of pancreatic cancer Personal history of malignant neoplasm of other site in gastrointestinal tract H/O Whipple procedure Right flank pain Abdominal pain, unspecified site documented in this encounter [facility] note* Diagnosis Medical clearance for psychiatric admission- Primary Depression with suicidal ideation PTSD (post-traumatic stress disorder) Posttraumatic stress disorder documented in this encounter [facility] note* Diagnosis Pneumonia of right middle lobe due to infectious organism- Primary Nausea vomiting and diarrhea Nausea with vomiting documented in this encounter [facility] note* Diagnosis IPMN (intraductal papillary mucinous [...] not stated as uncontrolled Severe persistent asthma (HCC) Unspecified asthma Obesity, Class I, BMI 30-34.9 Obesity, unspecified 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 DM type 1 (diabetes mellitus, type 1) (HCC) Type I (juvenile type) diabetes mellitus without mention of complication, not stated as uncontrolled Bipolar 1 disorder (HCC) Bipolar I disorder, most recent episode (or current) unspecified 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HCC) Posttraumatic stress disorder Acute postoperative respiratory insufficiency Other pulmonary insufficiency, not elsewhere classified, following trauma and surgery Insulin dose changed (HCC) Primary hypertension Unspecified essential hypertension Severe persistent asthma, unspecified whether complicated (HCC)- Primary 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 Dong's esophagus Other chronic pancreatitis (HCC) Fatty liver Other chronic nonalcoholic liver disease History of bowel resection Preoperative examination Preoperative examination, unspecified 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 documented in this [facility] Diagnosis IPMN (intraductal papillary mucinous neoplasm)- [...] not stated as uncontrolled Severe persistent asthma (HCC) Unspecified asthma Obesity, Class I, BMI 30-34.9 Obesity, unspecified 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 DM type 1 (diabetes mellitus, type 1) (HCC) Type I (juvenile type) diabetes mellitus without mention of complication, not stated as uncontrolled Bipolar 1 disorder (HCC) Bipolar I disorder, most recent episode (or current) unspecified 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HCC) Posttraumatic stress disorder Acute postoperative respiratory insufficiency Other pulmonary insufficiency, not elsewhere classified, following trauma and surgery Insulin dose changed (HCC) Primary hypertension Unspecified essential hypertension Severe persistent asthma, unspecified whether complicated (HCC)- Primary 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 Dong's esophagus Other chronic pancreatitis (HCC) Fatty liver Other chronic nonalcoholic liver disease History of bowel resection Preoperative examination Preoperative examination, unspecified 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 Insulin pump status documented in this encounter [facility] Discharge instructions No data available for this section [facility] InstructionsNot on filedocumented in this encounter [facility] [...] available for this section [facility] reason for referral (narrative)* Outpatient Procedure (Routine) - New Request Specialty Diagnoses / Procedures Referred By Kwabena gray Referred To Contact [facility] Diagnoses Cyst and pseudocyst of pancreas Procedures EGD - THERAPEUTIC, EUS, OR TUBE INTERVENTIONS EGD INTRMURAL US NEEDLE ASPIRATE/[place] [address] [place] [address] [facility]ly [facility] [address] [place] [address] Referral ID Status Reason Start Date Expiration Date Visits Requested Visits Authorized [id number] New Request Auto-Generat ed Referral 07/22/2024 07/22/2025 1 1 [facility] for referral (narrative)* Outpatient Procedure (Routine) - Closed Specialty Diagnoses / Procedures Referred By Kwabena gray Referred To Contact [facility] Diagnoses Cyst and pseudocyst of pancreas Procedures EGD - THERAPEUTIC, EUS, OR TUBE INTERVENTIONS EGD INTRMURAL US NEEDLE ASPIRATE/BIOPSY [place]HAGS Jesus [place]son [place] [id number] [place] [address] [address] Referral ID Status Reason Start Date Expiration Date V isits Requested Visits Authorized [id number] Closed Auto-Generate d Referral 07/24/2024 10/21/2024 1 1 [facility] for visit Narrative* Outpatient Procedure (Routine) - Closed Specialty Diagnoses / Procedures Referred By Contac t Referred To Contact [facility] Diagnoses Cyst and pseudocyst of pancreas Procedures EGD - THERAPEUTIC, EUS, OR TUBE INTERVENTIONS EGD INTRMURAL US NEEDLE ASPIRATE/BIOPSY ESOPHAGS Jesus Jacobson MD [address] [place], [place] [id number] [address] [address] Referral ID Status Reason Start Date Expiration Date V isits Requested Visits Authorized [id number] Closed Auto-Generate d Referral 07/24/2024 10/21/2024 1 1 [facility] for visit Narrative* Outpatient Procedure (Routine) - Closed Specialty Diagnoses / Procedures Referred By Contac t Referred To Contact [facility] Diagnoses IPMN (intraductal papillary mucinous neoplasm) Procedures EGD DIAGNOSTIC ESOPHAGOGASTRODUODENOSC OPY TRANSORAL DIAGNOSTIC Jesus Jacobson MD [address] [place], [place] [id number] Phone: tel: fax: [address] [address] Referral ID Status Reason Start Date Expiration Date V isits Requested Visits Authorized [id number] Closed Auto-Generate d Referral 01/05/2025 04/05/2025 1 1 [facility] for visit Narrative* Outpatient Procedure (Routine) - Closed Specialty Diagnoses / Procedures Referred By Contac t Referred To Contact [facility] Diagnoses IPMN (intraductal papillary mucinous neoplasm) Procedures EGD DIAGNOSTIC ESOPHAGOGASTRODUODENOSCOPY [place] [address] [place] [address] Phone: tel: fax: Gastroenterology [address] [place] [address] Phone: tel: Referral ID Status Reason Start Date Expiration Date V isits Requested Visits Authorized [id number] Closed Auto-Generate d Referral 01/23/2025 04/23/2025 1 1 [facility] for visit Narrative* Imaging (Routine) - Closed Specialty Diagnoses / Procedures Referred By Contac t Referred To Contact Radiology Diagnoses Left lower quadrant abdominal pain History of diverticulitis Procedures CT ABDOMEN PELVIS W IV CONTRAST Additional Contrast? Radiologist Recommendation Eliana Springer, [employer] [address] [place] [address] Phone: tel: fax: Referral ID Status Reason Start Date Expiration Date Visits Re quested Visits Authorized [id number] Closed 02/16/2025 02/16/2026 1 1 [facility] Summary Purpose Family History No Family History Records FoundNo Family History Records FoundNo Family History Records FoundNo Family History Records Found No data available for this section No Family History Records FoundNo Family History Records FoundNo Family History Records FoundNo Family History Records FoundNo Family History Records FoundNo Family History Records FoundNo Family History Records Found Advance Directives No Advanced Directives Records Found Date Activated Date Inactivated Comments 05/26/2025 12:16 AM 05/27/2025 3:00 PM Date Activated Date Inactivated Comments 02/07/2024 1:19 PM 02/08/2024 4:10 PM Date Activated Date Inactivated Comments 05/19/2023 12:25 AM 05/22/2023 7:29 PM Healthcare Agents on File Name Relationship Healthcare Agent Relationship Communication Genoveva Herrerabrook Spouse Primary Decision Maker [email or web address] Latest Code Status on File Code Status Date Activated Date Inactivated Comments Full Code 05/19/2023 12:25 AM 05/22/2023 7:29 PM Healthcare Agents on File Name Relationship Healthcare Agent Relationship Communication January Smyrna Spouse Primary Decision Maker Latest Code Status on File Code Status Date Activated Date Inactivated Comments Full Code 05/19/2023 12:25 AM 05/22/2023 7:29 PM Healthcare Agents on File Name Relationship Healthcare Agent Relationship Communication January Smyrna Spouse Primary Decision Maker Healthcare Agents on File Name Relationship Healthcare Agent Relationship Communication January Smyrna Spouse Primary Decision Maker Latest Code Status on File Code Status Date Activated Date Inactivated Comments Full Code 02/07/2024 1:19 PM 02/08/2024 4:10 PM Code Status History Code Status Date Activated Date Inactivated Comments Full Code 05/19/2023 12:25 AM 05/22/2023 7:29 PM Healthcare Agents on File Name Relationship Healthcare Agent Relationship Communication January Smyrna Spouse Primary Decision Maker [email or web address] Healthcare Agents on File Name Relationship Healthcare Agent Relationship Communication January Smyrna Spouse Primary Decision Maker [email or web address] Latest Code Status on File Code Status Date Activated Date Inactivated Comments Full Code 02/07/2024 1:19 PM 02/08/2024 4:10 PM Code Status History Code Status Date Activated Date Inactivated Comments Full Code 05/19/2023 12:25 AM 05/22/2023 7:29 PM Healthcare Agents on File Name Relationship Healthcare Agent Relationship Communication Genoveva Smyrna Spouse Primary Decision Maker [email or web address] Healthcare Agents on File Name Relationship Healthcare Agent Relationship Communication Genoveva Smyrna Spouse Primary Decision Maker [email or web address] Date Activated Date Inactivated Comments 02/07/2024 1:19 PM 02/08/2024 4:10 PM Date Activated Date Inactivated Comments 05/19/2023 12:25 AM 05/22/2023 7:29 PM Healthcare Agents on File Name Relationship Healthcare Agent Relationship Communication January Smyrna Spouse Primary Decision Maker [facility] Healthcare Agents on File Name Relationship Healthcare Agent Relationship Communication January Smyrna Spouse Primary Decision Maker [facility] Healthcare Agents on File Name Relationship Healthcare Agent Relationship Communication January Smyrna Spouse Primary Decision Maker [facility] Healthcare Agents on File Name Relationship Healthcare Agent Relationship Communication January Smyrna Spouse Primary Decision Maker [facility] Healthcare Agents on File Name Relationship Healthcare Agent Relationship Communication January Smyrna Spouse Primary Decision Maker [facility] Healthcare Agents on File Name Relationship Healthcare Agent Relationship Communication January Smyrna Spouse Primary Decision Maker [facility] Healthcare Agents on File Name Relationship Healthcare Agent Relationship Communication January Smyrna Spouse Primary Decision Maker [facility] Date Activated Date Inactivated Comments 05/24/2024 4:44 AM Date Activated Date Inactivated Comments 05/24/2024 4:44 AM 05/24/2024 7:04 PM Healthcare Agents on File Name Relationship Healthcare Agent Relationship Communication January Smyrna Spouse Primary Decision Maker [facility] Healthcare Agents on File Name Relationship Healthcare Agent Relationship Communication January Smyrna Spouse Primary Decision Maker [facility] Date Activated Date Inactivated Comments 02/07/2024 1:19 PM 02/08/2024 4:10 PM Date Activated Date Inactivated Comments 05/19/2023 12:25 AM 05/22/2023 7:29 PM Healthcare Agents on File Name Relationship Healthcare Agent Relationship Communication Genoveva Smyrna Spouse Primary Decision Maker [email or web address] Healthcare Agents on File Name Relationship Healthcare Agent Relationship Communication Genoveva Smyrna Spouse Primary Decision Maker [email or web address] Date Activated Date Inactivated Comments 05/26/2025 12:16 AM Healthcare Agents on File Name Relationship Healthcare Agent Relationship Communication Genoveva Smyrna Spouse Primary Decision Maker [email or web address] Date Activated Date Inactivated Comments 05/31/2025 12:47 AM 06/03/2025 4:52 PM Date Activated Date Inactivated Comments 05/26/2025 12:16 AM 05/27/2025 3:00 PM Date Activated Date Inactivated Comments 02/07/2024 1:19 PM 02/08/2024 4:10 PM Date Activated Date Inactivated Comments 05/19/2023 12:25 AM 05/22/2023 7:29 PM Healthcare Agents on File Name Relationship Healthcare Agent Relationship Communication Genoveva Smyrna Child Primary Decision Maker Reason for Referral Specialty Diagnoses / Procedures Referred By Contac t Referred To Contact Radiology Diagnoses Preop cardiovascular exam Primary hypertension Mixed hyperlipidemia Intermittent chest pain Procedures Nuclear stress test with myocardial perfusion Uli Strong MD [address] [place] [id number] Referral ID Status Reason Start Date Expiration Date Visits Re quested Visits Authorized [id number] Closed 06/29/2023 06/28/2024 3 3 Specialty Diagnoses / Procedures Referred By Contac t Referred To Contact Radiology Diagnoses Cervical spinal stenosis Procedures CT CERVICAL SPINE W CONTRAST Danica Conklin MD [address] [place] [address] Referral ID Status Reason Start Date Expiration Date Visits Re quested Visits Authorized [id number] Closed 04/17/2024 04/17/2025 1 1 Specialty Diagnoses / Procedures Referred By Contac t Referred To Contact Diagnoses IPMN (intraductal papillary mucinous neoplasm) Preoperative examination Procedures REFER TO [facility] - PREOPERATIVE OPTIMIZATION OFFICE/OUTPATIENT NEW HIGH MDM 60 MINUTES Jesus Jacobson MD [address] [place] [address] Referral ID Status Reason Start Date Expiration Date Visits Requested Visits Authorized [id number] Authorized PCP Requested Referral 4 08/14/2025 1 1 Specialty Diagnoses / Procedures Referred By Contac t Referred To Contact [facility] Diagnoses IPMN (intraductal papillary mucinous neoplasm) Preoperative examination Procedures ECG COMPLETE ECG ROUTINE ECG W/LEAST 12 LDS W/I&R Jesus Jacobson MD [address] [place] [address] [facility] [facility] [address] [place] [address] Referral ID Status Reason Start Date Expiration Date Visits Requested Visits Authorized [id number] New Request Auto-Generat ed Referral 4 08/14/2025 1 1 Specialty Diagnoses / Procedures Referred By Contac t Referred To Contact Diagnoses IPMN (intraductal papillary mucinous neoplasm) Preoperative examination Procedures CONSULT TO [facility] OFFICE/OUTPATIENT NEW HIGH MDM 60 MINUTES Jesus Jacobson MD [address] [place] [address] Referral ID Status Reason Start Date Expiration Date Visits Requested Visits Authorized [id number] Authorized PCP Requested Referral 4 08/14/2025 1 1 Specialty Diagnoses / Procedures Referred By Contac t Referred To Contact Pain Management Diagnoses IPMN (intraductal papillary mucinous neoplasm) Preoperative examination Procedures CONSULT TO PAIN MGT OFFICE/OUTPATIENT NEW HIGH MDM 60 MINUTES Jesus Jacobson MD [address] [place] [address] Referral ID Status Reason Start Date Expiration Date Visits Requested Visits Authorized [id number] Authorized PCP Requested Referral 4 08/14/2025 1 1 Specialty Diagnoses / Procedures Referred By Contac t Referred To Contact Diagnoses Thoracic spondylosis Procedures Case request operating room: #2 Bilateral Thoracic Medial Branch block T7-8 and T8-9 Slime Romano, STONEHAND-PAPER AND PULP MILL WORKER [address] [facility] [address] [place] [address] Referral ID Status Reason Start Date Expiration Date V isits Requested Visits Authorized [id number] Pending Review 10/24/2023 10/23/2024 1 1 Specialty Diagnoses / Procedures Referred By Contac t Referred To Contact Rehabilitation Diagnoses Cervical radiculitis Joana Stratton MD [address] [place] [address] Referral ID Status Reason Start Date Expiration Date Visits Requested Visits Authorized [id number] Pending Review Specialty Services Required 02/25/2024 08/27/2024 1 1 Scheduling Instructions PT 3 times a week for 6 weeks. Specialty Diagnoses / Procedures Referred By Contac t Referred To Contact Diagnoses Thoracic spondylosis without myelopathy Procedures Case request operating room: #2 Bilateral Thoracic Medial Branch Block T7-8 and T8-9 Joana Stratton MD [address] [place] [address] Referral ID Status Reason Start Date Expiration Date V isits Requested Visits Authorized [id number] Pending Review 11/06/2023 11/05/2024 1 1 Specialty Diagnoses / Procedures Referred By Contac t Referred To Contact Rehabilitation Diagnoses Lumbosacral spondylosis without myelopathy Slime Romano, STONEHAND-PAPER AND PULP MILL WORKER [address] [facility] [address] [place] [address] [facility] [address] [place] [address] Referral ID Status Reason Start Date Expiration Date Visits Requested Visits Authorized [id number] Authorized Specialty Services Required 11/21/2023 11/20/2024 1 1 Specialty Diagnoses / Procedures Referred By Contac t Referred To Contact Rehabilitation Diagnoses Thoracic spondylosis without myelopathy Joana Stratton MD [address] [place] [address] Referral ID Status Reason Start Date Expiration Date Visits Requested Visits Authorized [id number] Pending Review Specialty Services Required 12/24/2023 12/23/2024 1 1 Specialty Diagnoses / Procedures Referred By Kwabena gray Referred To Contact Diagnoses Postlaminectomy syndrome, lumbar region Encounter for long-term opiate analgesic use Thoracic spondylosis without myelopathy Procedures Case request operating room: Bilateral thoracic Radiofrequency ablation T7-8 and T8-9 Joana Stratton MD [address] [place] [address] Referral ID Status Reason Start Date Expiration Date V isits Requested Visits Authorized [id number] Pending Review 12/24/2023 12/23/2024 1 1 Additional Source Comments (unrecognized sect ion and content) No Status Records FoundNo Status Records FoundNo Status Records FoundNo Status Records FoundNo Status Records FoundNo Status Records FoundNo Status Records FoundNo Status Records FoundNo Status Records FoundNo Status Records FoundNo Status Records Found INFORMATION SOURCE (unrecogn ized section and content) DATE CREATED AUTHOR 09/27/2020 [facility] DATE CREATED AUTHOR AUTHOR'S ORGANIZ ATION 04/04/2024 [facility] DATE CREATED AUTHOR AUTHOR'S ORGANIZ ATION 05/26/2024 [facility] DATE CREATED AUTHOR AUTHOR'S ORGANIZ ATION 05/31/2024 [facility] DATE CREATED AUTHOR AUTHOR'S ORGANIZ ATION 07/03/2024 [facility] DATE CREATED AUTHOR AUTHOR'S ORGANIZ ATION 07/13/2024 [facility] DATE CREATED AUTHOR AUTHOR'S ORGANIZ ATION 04/16/2025 [facility] DATE CREATED AUTHOR AUTHOR'S ORGANIZ ATION 05/01/[address] [facility] DATE CREATED AUTHOR AUTHOR'S ORGANIZ ATION 06/03/2025 [facility] DATE CREATED AUTHOR AUTHOR'S ORGANIZ ATION 06/23/2025 [facility] DATE CREATED AUTHOR AUTHOR'S ORGANIZ ATION 07/08/2025 [facility] Care Teams (unrecognized sec tion and content) [employer] Relationship Specialty Start Date End Date Eliana Springer APRN - CNP [address] [place] [facility] [place] [address] PCP - General Certified Nurse Practitioner 04/23/23 [employer] Relationship Specialty Start Date End Date Eliana Springer APRN - CNP [address] [place] [facility] [place] [address] PCP - General Certified Nurse Practitioner 04/23/23 [employer] Relationship Specialty Start Date End Date Eliana Springer APRN - CNP [address] [facility] [place] [address] PCP - General Certified Nurse Practitioner 04/23/23 [employer] Relationship Specialty Start Date End Date Eliana Springer APRN - CNP [address] [place] [facility] [place] [address] PCP - General Certified Nurse Practitioner 04/23/23 [employer] Relationship Specialty Start Date End Date Eliana Springer APRN - CNP [address] [place] [facility] [place] [address] PCP - General Certified Nurse Practitioner 04/23/23 [employer] Relationship Specialty Start Date End Date Eliana Springer APRN - CNP [address] [place] [facility] [place] [address] PCP - General Certified Nurse Practitioner 04/23/23 [employer] Relationship Specialty Start Date End Date Eliana Springer APRN - CNP [address] [place] [facility] [place] [address] PCP - General Certified Nurse Practitioner 04/23/23 [employer] Relationship Specialty Start Date End Date Eliana Springer APRN - CNP [address] [place] [address] PCP - General Certified Nurse Practitioner 04/23/23 [employer] Relationship Specialty Start Date End Date GianEliana APRN - PAPER AND PULP MILL WORKER [address] [place] [address] PCP - General Certified Nurse Practitioner 04/23/23 [employer] Relationship Specialty Start Date End Date Wesly [place] MD [address] [place] [place], [place] [id number] Referring Gastroenterology 07/16/24 [employer] Relationship Specialty Start Date End Date Wesly Davies MD [address] [place] [address] Referring Gastroenterology 07/16/24 [employer] Relationship Specialty Start Date End Date Wesly Davies MD [address] [place] [address] Referring Gastroenterology 07/16/24 [employer] Relationship Specialty Start Date End Date Wesly Davies MD [address] [place] [address] Referring Gastroenterology 07/16/24 [employer] Relationship Specialty Start Date End Date Wesly Davies MD [address] [place], [place] [id number] Referring Gastroenterology 07/16/24 [employer] Relationship Specialty Start Date End Date Wesly Davies MD [address] [place], [place] [id number] Referring Gastroenterology 07/16/24 [employer] Relationship Specialty Start Date End Date Wesly Davies MD [address] [place], [place] [id number] Referring Gastroenterology 07/16/24 Wesly Davies MD [address] [place] [place], [place] 5181240 Referring Gastroenterology 07/25/24 [employer] Relationship Specialty Start Date End Date Wesly Davies MD [address] [facility] [address] [place], [place] [phone] Referring Gastroenterology 07/16/24 Wesly Davies MD [address] [place] [address] Referring Gastroenterology 07/25/24 [employer] Relationship Specialty Start Date End Date Wesly Davies MD [address] [facility] [place] [phone] Referring Gastroenterology 07/16/24 Wesly Davies MD [address] [place] [address] Referring Gastroenterology 07/25/24 [employer] Relationship Specialty Start Date End Date Wesly Davies MD [address] [place] [place], [place] [id number] 346- Referring Gastroenterology 07/16/24 Wesly Davies MD [address] [place] [address] Referring Gastroenterology 07/25/24 [employer] Relationship Specialty Start Date End Date Eliana Springer APRN - PAPER AND PULP MILL WORKER [address] [facility], [place] [phone] PCP - General Certified Nurse Practitioner 04/23/23 [employer] Relationship Specialty Start Date End Date Wesly Davies MD [address] [place], [place] 7397140 Referring Gastroenterology 07/16/24 Wesly Davies MD [address] [place] [address] Referring Gastroenterology 07/25/24 [employer] Relationship Specialty Start Date End Date Wesly Davies MD [address] [place] [address] Referring Gastroenterology 07/16/24 Wesly Davies MD [address] [place] [address] Referring Gastroenterology 07/25/24 [employer] Relationship Specialty Start Date End Date Wesly Davies MD [address] [place] [address] Referring Gastroenterology 07/16/24 Wesly Davies MD [address] [place] [address] Referring Gastroenterology 07/25/24 [employer] Relationship Specialty Start Date End Date Eliana Springer APRN.PAPER AND PULP MILL WORKER [address] [facility], [place] 868[address]83 PCP - General Family Medicine 08/15/24 Wesly Davies MD [facility] [place], [place] 8989240 Referring Gastroenterology 07/16/24 Wesly Davies MD [address] [facility] [address] [place], [place] 4643340 Referring Gastroenterology 07/25/24 [employer] Relationship Specialty Start Date End Date Eliana Springer, STONEHAND.PAPER AND PULP MILL WORKER [address] [place], [place] 6900083 PCP - General Family Medicine 08/15/24 Wesly Davies MD [address] [facility] [address] [place], [place] 2301540 Referring Gastroenterology 07/16/24 Wesly Davies MD [address] [facility] [address] [place], [place] 1940140 Referring Gastroenterology 07/25/24 [employer] Relationship Specialty Start Date End Date Eliana Springer STONEHAND.PAPER AND PULP MILL WORKER [address] [place] [address] PCP - General Family Medicine 08/15/24 Wesly Davies MD [address] [facility] [address] [place], [place] [phone] Referring Gastroenterology 07/16/24 Wesly Davies MD [address] [facility] [address] [place], [place] 6979640 Referring Gastroenterology 07/25/24 [employer] Relationship Specialty Start Date End Date Eliana Springer, STONEHAND.PAPER AND PULP MILL WORKER [address] [place], [place] 7325583 PCP - General Family Medicine 08/15/24 Wesly Davies MD [address] [place], [place] 1216140 Referring Gastroenterology 07/16/24 Wesly Davies MD [address] [place], [place] 8380740 Referring Gastroenterology 07/25/24 [employer] Relationship Specialty Start Date End Date Eliana Springer APRN.PAPER AND PULP MILL WORKER [address] [place] [address] [id number] PCP - General Family Medicine 08/15/24 Wesly Davies MD [address] [facility] [place] 9993940 Referring Gastroenterology 07/16/24 Wesly Davies MD [address] [facility] [place] 4290840 Referring Gastroenterology 07/25/24 [employer] Relationship Specialty Start Date End Date Eliana Springer APRN.PAPER AND PULP MILL WORKER [address] [place] [address] PCP - General Family Medicine 08/15/24 Wesly Davies MD [address] [place] [place], [place] 2844440 Referring Gastroenterology 07/16/24 Wesly Davies MD [address] [place] [place], [place] 5608440 Referring Gastroenterology 07/25/24 [employer] Relationship Specialty Start Date End Date Eliana Springer APRN.PAPER AND PULP MILL WORKER [address] [facility], [place] 3082583 PCP - General Family Medicine 08/15/24 Wesly Davies MD [address] [place] [address] Referring Gastroenterology 07/16/24 Wesly Davies MD [address] [place] [address] Referring Gastroenterology 07/25/24 [employer] Relationship Specialty Start Date End Date Eliana Springer APRN.PAPER AND PULP MILL WORKER [address] [place] [address] PCP - General Family Medicine 08/15/24 Wesly Davies MD [address] [place] [address] Referring Gastroenterology 07/16/24 Wesly Davies MD [address] [place] [address] Referring Gastroenterology 07/25/24 [employer] Relationship Specialty Start Date End Date Eliana Springer APRN - PAPER AND PULP MILL WORKER [address] [place] [address] PCP - General Certified Nurse Practitioner 04/23/23 [employer] Relationship Specialty Start Date End Date Eliana Springer APRN.PAPER AND PULP MILL WORKER [address] [place] [address] PCP - General Family Medicine 08/15/24 Wesly Davies MD [address] [place], [place] 7897540 Referring Gastroenterology 07/16/24 Wesly Davies MD [address] [facility] [address] [place], [place] 2683240 Referring Gastroenterology 07/25/24 [employer] Relationship Specialty Start Date End Date Eliana Springer, STONEHAND.PAPER AND PULP MILL WORKER [address] [place], [place] 0955383 PCP - General Family Medicine 08/15/24 Wesly Davies MD [address] [facility] [address] [place], [place] 8414640 Referring Gastroenterology 07/16/24 Wesly Davies MD [address] [facility] [address] [place], [place] 3463740 Referring Gastroenterology 07/25/24 [employer] Relationship Specialty Start Date End Date Eliana Springer, STONEHAND.PAPER AND PULP MILL WORKER [address] [place] [address] PCP - General Family Medicine 08/15/24 Wesly Davies MD [address] [facility] [address] [place], [place] 0936440 Referring Gastroenterology 07/16/24 Wesly Davies MD [address] [facility] [address] [place], [place] 9679840 Referring Gastroenterology 07/25/24 [employer] Relationship Specialty Start Date End Date Eliana Springer, STONEHAND.PAPER AND PULP MILL WORKER [address] [place], [place] 7706883 PCP - General Family Medicine 08/15/24 Wesly Davies MD [address] [place], [place] 4693340 Referring Gastroenterology 07/16/24 Wesly Davies MD [address] [place], [place] 0859440 Referring Gastroenterology 07/25/24 [employer] Relationship Specialty Start Date End Date Eliana Springer APRN.PAPER AND PULP MILL WORKER [address] [place], [place] 1244983 PCP - General Family Medicine 08/15/24 Wesly Davies MD [address] [facility] [place] 7588340 Referring Gastroenterology 07/16/24 Wesly Davies MD [address] [facility] [place] 8802140 Referring Gastroenterology 07/25/24 [employer] Relationship Specialty Start Date End Date Eliana Springer APRN.PAPER AND PULP MILL WORKER [address] [place], [place] 3472183 PCP - General Family Medicine 08/15/24 Wesly Davies MD [address] [place], [place] 1426740 Referring Gastroenterology 07/16/24 Wesly Davies MD [address] [place], [place] 1662740 Referring Gastroenterology 07/25/24 [employer] Relationship Specialty Start Date End Date Eliana Springer APRN.PAPER AND PULP MILL WORKER [address] [facility] [address] PCP - General Family Medicine 08/15/24 Wesly Davies MD [address] [facility] [place] [address] [place] [address] Referring Gastroenterology 07/16/24 Wesly Davies MD [address] [facility] [place] [address] [place] [address] Referring Gastroenterology 07/25/24 [employer] Relationship Specialty Start Date End Date Eliana Springer APRN - PAPER AND PULP MILL WORKER [address] [place] [facility] [address] PCP - General Certified Nurse Practitioner 04/23/23 [employer] Relationship Specialty Start Date End Date Eliana Springer APRN - PAPER AND PULP MILL WORKER [address] [place] [facility] [place] [address] PCP - General Certified Nurse Practitioner 04/23/23 [employer] Relationship Specialty Start Date End Date Eliana Springer APRN-PAPER AND PULP MILL WORKER [address] [place] [facility] [address] PCP - General Nurse Practitioner 07/16/23 [employer] Relationship Specialty Start Date End Date Eliana Springer APRN-PAPER AND PULP MILL WORKER [address] [place] [facility] [place] [address] PCP - General Nurse Practitioner 07/16/23 [employer] Relationship Specialty Start Date End Date Eliana Springer STONEHAND-PAPER AND PULP MILL WORKER [address] [place] [facility] [place] [address] PCP - General Nurse Practitioner 07/16/23 [employer] Relationship Specialty Start Date End Date Eliana Springer APRN-CNP [address] [place] [facility] [place] [address] PCP - General Nurse Practitioner 07/16/23 [employer] Relationship Specialty Start Date End Date Eliana Springer APRN - PAPER AND PULP MILL WORKER [address] [place] [facility] [place] [address] PCP - General Certified Nurse Practitioner 04/23/23 [employer] Relationship Specialty Start Date End Date Eliana Springer APRN-PAPER AND PULP MILL WORKER [address] [place] [facility] [place] [address] PCP - General Nurse Practitioner 07/16/23 [employer] Relationship Specialty Start Date End Date Eliana Springer APRN-PAPER AND PULP MILL WORKER [address] [place] [facility] [place] [address] PCP - General Nurse Practitioner 07/16/23 [employer] Relationship Specialty Start Date End Date Eliana Springer APRN-PAPER AND PULP MILL WORKER [address] [place] [facility] [place] [address] PCP - General Nurse Practitioner 07/16/23 [employer] Relationship Specialty Start Date End Date Eliana Springer APRN-CNP [address] [place] [facility] [address] PCP - General Nurse Practitioner 07/16/23 [employer] Relationship Specialty Start Date End Date Eliana Springer APRN-PAPER AND PULP MILL WORKER [address] [place] [facility] [place] [address] PCP - General Nurse Practitioner 07/16/23 [employer] Relationship Specialty Start Date End Date Eliana Springer APRN-PAPER AND PULP MILL WORKER [address] [place] [facility] [place] [address] PCP - General Nurse Practitioner 07/16/23 [employer] Relationship Specialty Start Date End Date Eliana Springer APRN-PAPER AND PULP MILL WORKER [address] [place] [address] [id number] PCP - General Nurse Practitioner 07/16/23 [employer] Relationship Specialty Start Date End Date Eliana Springer APRN-PAPER AND PULP MILL WORKER [address] [place] [address] [id number] PCP - General Nurse Practitioner 07/16/23 [employer] Relationship Specialty Start Date End Date Eliana Springer APRN.PAPER AND PULP MILL WORKER [address] [place] [address] PCP - General Family Medicine 08/15/24 Wesly Davies MD [address] [place], [place] 2373440 Referring Gastroenterology 07/16/24 Wesly Davies MD [address] [place] [address] Referring Gastroenterology 07/25/24 [employer] Relationship Specialty Start Date End Date Eliana Springer APRN.PAPER AND PULP MILL WORKER [address] [place] [address] PCP - General Family Medicine 08/15/24 Wesly Davies MD [address] [place], [place] 7589140 Referring Gastroenterology 07/16/24 Wesly Davies MD [address] [place], [place] 1777240 Referring Gastroenterology 07/25/24 [employer] Relationship Specialty Start Date End Date Eliana Springer APRN - PAPER AND PULP MILL WORKER [address] [place] [facility] [place] [address] PCP - General Certified Nurse Practitioner 04/23/23 [employer] Relationship Specialty Start Date End Date Eliana Springer APRN.PAPER AND PULP MILL WORKER [address] [facility] [place] [address] PCP - General Family Medicine 08/15/24 Wesly Davies MD [address] [place] [address] Referring Gastroenterology 07/16/24 Wesly Davies MD [address] [place] [address] Referring Gastroenterology 07/25/24 [employer] Relationship Specialty Start Date End Date Eliana Springer APRN.PAPER AND PULP MILL WORKER [address] [facility] [place] [address] PCP - General Family Medicine 08/15/24 Wesly Davies MD [address] [place] [address] Referring Gastroenterology 07/16/24 Wesly Davies MD [address] [place] [address] Referring Gastroenterology 07/25/24 [employer] Relationship Specialty Start Date End Date Eliana Springer APRN - PAPER AND PULP MILL WORKER [address] [place] [facility] [place] [address] PCP - General Certified Nurse Practitioner 04/23/23 [employer] Relationship Specialty Start Date End Date Eliana Springer APRN.CNP [address] [facility] [place] [address] PCP - General Family Medicine 08/15/24 Wesly Davies MD [address] [facility] [address] [place], [place] 9740540 Referring Gastroenterology 07/16/24 Wesly Davies MD [address] [facility] [place] [address] [place] [address] Referring Gastroenterology 07/25/24 [employer] Relationship Specialty Start Date End Date Eliana Springer APRN - PAPER AND PULP MILL WORKER [address] [place] [facility] [place] [address] PCP - General Certified Nurse Practitioner 04/23/23 [employer] Relationship Specialty Start Date End Date Eliana Springer APRN - PAPER AND PULP MILL WORKER [address] [place] [facility] [place] [address] PCP - General Certified Nurse Practitioner 04/23/23 [employer] Relationship Specialty Start Date End Date Eliana Springer APRN - PAPER AND PULP MILL WORKER [address] [place] [facility] [place] [address] PCP - General Certified Nurse Practitioner 04/23/23 [employer] Relationship Specialty Start Date End Date Eliana Springer APRN - PAPER AND PULP MILL WORKER [address] [place] [facility] [place] [address] PCP - General Certified Nurse Practitioner 04/23/23 [employer] Relationship Specialty Start Date End Date Eliana Springer APRN - PAPER AND PULP MILL WORKER [address] [place] [facility] [place] [address] PCP - General Certified Nurse Practitioner 04/23/23 Reason for Visit (unrecogniz ed section and content) Specialty Diagnoses / Procedures Referred By Contac t Referred To Contact Radiology Diagnoses Preop cardiovascular exam Primary hypertension Mixed hyperlipidemia Intermittent chest pain Procedures Nuclear stress test with myocardial perfusion Uli Strong MD [address] [place] [address] Referral ID Status Reason Start Date Expiration Date Visits Re quested Visits Authorized [id number] Closed 06/29/2023 06/28/2024 3 3 Reason Comments Chest Pain Patient presents wit h complaint of 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 Patient reports that the pain was substernal with radiation to left shoulder and shortness of breath. 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 Follows with [facility] and reports I am supposed to have [...] New Specialty Diagnoses / Procedures Referred By Contac t Referred To Contact Diagnoses IPMN (intraductal papillary mucinous neoplasm) Preoperative examination Procedures REFER TO [facility] - PREOPERATIVE OPTIMIZATION OFFICE/OUTPATIENT NEW HIGH MDM 60 [place] [id number] [address] [place] [id number] Referral ID Status Reason Start Date Expiration Date V isits Requested Visits Authorized [id number] Closed PCP Requested Referral 08/14/2024 08/14/2025 1 1 Reason Comments Radio Gen A21 Reason Comments Research IRB 3166 Reason Comments Patient Update Patient Question Reason Comments Neck Pain Pt states he has sti ff neck. 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 Reason Comments Follow Up Reason Comments Forms Reason Comments Insurance Authorization Insulin Pump [ C MEDICARE] Reason Onset Date Comments Refill Request 09/19/2024 Reason Comments Insulin pump start training Reason Comments Post Op Reason Comments Forms [facility] Insulin pump Reason Comments Diabetes Reason Comments Insulin Pump Start Follow Up Reason Comments Fall Patient c/o a fall o n the ice, pain when lifting arms, back pain, left arm and hand pain. Reason Comments Back Pain Neck Pain Reason Comments Back Pain Reason Comments Patient Question Reason Comments Rib Pain (injury) Severe right rib rickey n when taking deep breaths that started a couple of days ago. Went to [facility] in [place] on 12/03 took an xray and found metal in ribs- thought it was shrapnel or surgical clip (last had surgery August 2024 and shrapnel was from service injury but pt states that has all been taken out). Fell on ice a couple of days ago and only back and wrist were injured then Reason Onset Date Comments Med Refill 04/03/2024 Reason Comments Back Pain Neck Pain Reason Onset Date Comments Pancreatitis 05/24/2024 Reason Comments Back Pain Reason Comments Post Op Follow Up Reason Comments Refill Request Reason Comments Finger Injury Patient to the ER wi th complaint of left 3rd and 4th digit pain after injury. Patient was with his in the [employer] when he was attempting to put up the foot portion of the recliner when his fingers were pinched. Ice pack applied in triage Reason Comments Request For Clinical Notes Reason Comments Appointment Reason Comments progress notes Reason Comments Flank Pain Patient complains of right flank pain that has been ongoing since Sunday. Patient states increased pain with any movement. Specialty Diagnoses / Procedures Referred By Kwabena gray Referred To Contact Diagnoses Acute pneumonia Irvin Obrien MD [address] [place] [address] Phone: tel: fax: [facility] [address] [place] [address] Referral ID Status Reason Start Date Expiration Date Visits Re quested Visits Authorized [id number] 1 1 Reason Comments Mental Health Problem Patient states ramandeep t he just found out his wants .Patient states that he did have thought about killing himself but has no plans. Police were called and brought patient to the ed for mental eval. Reason Comments Forms ADS order form Reason Comments Vomiting Pt. Reports vomiting , diarrhea and body aches. Ongoing for couple of days. Pt. Reports took aleve at home with minimal relief. Illness Scheduled Active and Recently Administ ered Medications [...] at 1415 1409 (Given - Provid er: Luis Mancia RN) Scheduled Medication Order 08/09/2024 08/10/2024 [...] (Given - Provid er: Selene Alvarez RN) Scheduled Medication Order 11/28/2024 11/29/2024 11/30/2024 ketorolac (TORADOL) injection 30 mg (COMPLETED) 30 mg, IntraMUSCular, ONCE, 1 dose, On Sun11/30/24 at 1600, Do not administer for more than 5 days. 1554 (Given - Provid er: Luis Mancia RN) Scheduled Medication Order 12/03/2024 12/04/2024 12/05/2024 fentaNYL (SUBLIMAZE) injection 50 mcg (COMPLETED) 50 mcg, IntraVENous, ONCE, 1 dose, On Sun12/05/24 at 1645, If oral and IV narcotics ordered, use oral first and only use IV if oral is ineffective or cannot take oral. Do Not give oral and IV within 1 hour of each other unless specifically ordered. 1658 (Given - Provid er: Manuela Payan RN) sodium chloride 0.9 % bolus 1,000 mL (COMPLETED) 1,000 mL (11.6 mL/kg), IntraVENous, at 2,000 mL/hr, Administer over 30 Minutes, ONCE, On Sun12/05/24 at 1645, For 1 dose 1657 (New Bag - Prov ider: Manuela Payan RN)1747 (Stopped - Provider: Manuela Payan RN) sodium chloride flush 0.9 % injection 3 mL(Linked Group 1) 3 mL, IntraVENous, EVERY 8 HOURS, First dose on Sun12/05/24 at 1645, Until Discontinued, Flush line with 3-5 mL 1645 (Due) PRN Medication Order 12/03/2024 12/04/2024 12/05/2024 iopamidol (ISOVUE-370) 76 % injection 75 mL (COMPLETED) 75 mL, IntraVENous, IMG ONCE PRN, 1 dose, Starting on Sun12/05/24 at 1717, Until Sun12/05/24 at 1734, Other 1734 (Given - Provid er: Alexandrea Wilcox) Linked Groups Order Group 1: Saline lock IV (COMPLETED) Routine, CONTINUOUS, Starting on Sun12/05/24 at 1645, Until Specified And sodium chloride flush 0.9 % injection 3 mLJump to med 3 mL, IntraVENous, EVERY 8 HOURS, First dose on Sun12/05/24 at 1645, Until Discontinued, Flush line with 3-5 mL Scheduled Medication Order 02/22/2025 02/23/2025 02/24/2025 acetaminophen (TYLENOL) tablet 650 mg (COMPLETED) 650 mg, Oral, ONCE, 1 dose, On Sun02/24/25 at 1245, Maximum dose of acetaminophen is 4000 mg from all sources in 24 hours. 1248 (Given - Provid er: Clementina Ahumada RN) Scheduled Medication Order 05/25/2025 05/26/2025 05/27/2025 amitriptyline (ELAVIL) tablet 50 mg 50 mg, Oral, NIGHTLY, First dose on Sun05/26/25 at 0045, Until Discontinued, at bedtime. 0048 (Given - Provider: Cristina Moreau RN)2105 (Given - Provider: Rosenda Davis RN) 2100 (Due) amLODIPine (NORVASC) tablet 2.5 mg 2.5 mg, Oral, DAILY, First dose on Sun05/26/25 at 0900, Until Discontinued 09 (Given - Provider: Clementina Ahumada, [facility]) 0846 (Given - Provider: Sneha Sims RN) amoxicillin-clavulanate (AUGMENTIN) 875-125 MG per tablet 1 tablet 1 tablet, Oral, EVERY 12 HOURS SCHEDULED (2 times per day), 16 doses, First dose on Sun05/27/25 at 0900, Last dose on Sun06/03/25 at 2100, Antimicrobial Indications: Pneumonia (CAP), CAP duration of therapy: Other, Other CAP Duration: 8 days 0846 (Given - Provider: Sneha Sims, [facility])2100 (Due) atorvastatin (LIPITOR) tablet 40 mg 40 mg, Oral, DAILY, First dose on Sun05/26/25 at 0900, Until Discontinued, On hold since Sun05/26/2025 at 0127 until manually unheld 0127 (Held by provider - Provider: Rosenda Rankin APRN - [employer] - Reason: Other)0900 (Automatically Held - Provider: NATE Griffin CNP) 0900 (Automatically Held - Provider: NATE Griffin CNP) azithromycin (ZITHROMAX) 500 mg in sodium chloride 0.9 % 250 mL IVPB ([id number]) (COMPLETED) 500 mg, IntraVENous, ONCE, 1 dose, On Sun05/25/25 at 2330, Antimicrobial Indications: Pneumonia (CAP), Use 20mm (Blue) [id number] Adapter Preparation instructions: Attach medication vial to one 20mm (Blue) [id number] adapter. Selvin fluid bag with adapter, mix, and administer per order. 0005 (New Bag - Provider: Mellissa Akins RN)0007 (Stopped - Provider: Clementina Ahumada, [facility])0007 (Stopped - Provider: Clementina Ahumada, [facility])0218 (Stopped - Provider: Cristina Moreau, [facility]) azithromycin (ZITHROMAX) tablet 500 mg (CANCELED)(Linked Group 1) 500 mg, Oral, EVERY 24 HOURS, 3 doses, First dose on Sun05/26/25 at 2300, Last dose on Sun05/28/25 at 2300, Antimicrobial Indications: Pneumonia (CAP), CAP duration of therapy: Other, Other CAP Duration: 3 days 2347 (Given - Provider: Rosenda Davis RN) budesonide-formoterol (SYMBICORT) 160-4.5 MCG/ACT inhaler 2 puff 2 puff, Inhalation, 2 TIMES DAILY RESP, First dose on Sun05/26/25 at 0045, Until Discontinued, Substituted for Fluticasone-vilanterol (BREO ELLIPTA). 0038 (Not Given - Provider: Ana Barrios RCP - Reason: Other - Comment: Will start in the morning)1035 (Given - Provider: Melva Chaparro RCP)2033 (Given - Provider: Ana Barrios RCP) 0959 (Given - Provider: Melva Chaparro RCP)2100 (Due - Provider: Velvet Santana RCP) cefTRIAXone (ROCEPHIN) 1,000 mg in sterile water 10 mL IV syringe (COMPLETED) 1,000 mg, IntraVENous, ONCE, On Sun05/25/25 at 2330, For 1 dose, Administer as slow IV Push over 5 mins Reconstitute 1 g vials with 9.6 mL of designated diluent to produce a 100 mg/mL solution. 2327 (Given - Provider: Mellissa Akins RN) cefTRIAXone (ROCEPHIN) 1,000 mg in sterile water 10 mL IV syringe (CANCELED)(Linked Group 1) 1,000 mg, IntraVENous, EVERY 24 HOURS, First dose on Sun05/26/25 at 2300, For 5 days, Administer as slow IV Push over 5 mins Reconstitute 1 g vials with 9.6 mL of designated diluent to produce a 100 mg/mL solution. 2347 (Given - Provider: Rosenda Davis RN) cetirizine (ZYRTEC) tablet 10 mg 10 mg, Oral, DAILY, First dose on Sun05/26/25 at 0900, Until Discontinued, Substituted for Fexofenadine (CHAKA). 09 (Given - Provider: Clementina Ahumada RN) 0846 (Not Given - Provider: Sneha Sims RN - Reason: Patient/family refused) clonazePAM (KLONOPIN) tablet 0.5 mg 0.5 mg, Oral, DAILY, First dose on Sun05/26/25 at 0900, Until Discontinued 09 (Given - Provider: Clementina Ahumada RN) 0846 (Given - Provider: Sneha Sims RN) clonazePAM (KLONOPIN) tablet 2 mg 2 mg, Oral, Nightly, First dose on Sun05/26/25 at 0045, Until Discontinued 004 (Given - Provider: Cristina Moreau RN)2104 (Given - Provider: Rosenda Davis RN) 2100 (Due) doxycycline hyclate (VIBRAMYCIN) capsule 100 mg 100 mg, Oral, EVERY 12 HOURS SCHEDULED (2 times per day), 16 doses, First dose on Sun05/27/25 at 0900, Last dose on Sun06/03/25 at 2100, Antimicrobial Indications: Pneumonia (CAP), CAP duration of therapy: Other, Other CAP Duration: 8 days, This medication can interact with tube feedings (TF)- obtain MD order to manage. Recommend holding TF for 1 h before and 2 h after dose. Take 1 h before or 2 h after dairy, calcium, iron, magnesium, aluminum or zinc. 0846 (Given - Provider: Sneha Sims RN)2100 (Due) enoxaparin (LOVENOX) injection 40 mg 40 mg, SubCUTAneous, DAILY, First dose on Sun05/26/25 at 0900, Until Discontinued, Indication of Use: Prophylaxis-DVT/PE 0914 (Given - Provider: Clementina Ahumada RN) 0846 (Given - Provider: Sneha Sims RN) fenofibrate (TRICOR) tablet 54 mg 54 mg, Oral, DAILY, First dose on Sun05/26/25 at 0900, Until Discontinued, Substituted for Fenofibrate (Non-Formulary Dose)., On hold since Sun05/26/2025 at 0126 until manually unheld 012 (Held by provider - Provider: NATE Griffin CNP - Reason: Other)0900 (Automatically Held - Provider: NATE Griffin CNP) 0900 (Automatically Held - Provider: NATE Griffin CNP) ferrous sulfate (IRON 325) tablet 325 mg (CANCELED) 325 mg, Oral, DAILY WITH BREAKFAST, First dose on Sun05/26/25 at 0800, Until Discontinued 0911 (Given - Provider: Clementina Ahumada RN) ferrous sulfate (IRON 325) tablet 325 mg 325 mg, Oral, DAILY WITH LUNCH, First dose (after last modification) on Sun05/27/25 at 1200, Until Discontinued, Separate from Doxycycline by at least 2 hours 1214 (Given - Provider: Sneha Sims RN) HYDROcodone-acetaminophen (NORCO) 5-325 MG per tablet 1 tablet (COMPLETED) 1 tablet, Oral, ONCE, 1 dose, On Sun05/25/25 at 2330, Maximum dose of acetaminophen is 4000 mg from all sources in 24 hours. 2326 (Given - Provider: Mellissa Akins RN) insulin lispro (HUMALOG,ADMELOG) injection vial 1 Units 1 Units, SubCUTAneous, ONCE, 1 dose, On Sun05/26/25 at 0045, Per pump 0049 (Not Given - Provider: Cristina Moreau RN - Reason: Patient/family refused - Comment: BS 82) ipratropium 0.5 mg-albuterol 2.5 mg (DUONEB) nebulizer solution 1 Dose 1 Dose, Inhalation, 4 TIMES DAILY RESP, First dose (after last modification) on Sun05/26/25 at 0600, Until Discontinued, Initiate RT Bronchodilator Protocol: Yes - Inpatient Protocol 0606 (Given - Provider: Ana Barrios RCP)1035 (Given - Provider: Melva Chaparro RCP)1509 (Given - Provider: Melva Chaparro RCP)2033 (Given - Provider: Ana Barrios RCP) 0452 (Given - Provider: Ana Barrios RCP)0959 (Given - Provider: Melva Chaparro RCP)1600 (Due - Provider: Ana Barrios RCP)2000 (Due - Provider: Ana Barrios RCP) ajnust-vtvaaaxy-fnuhqdd (ZENPEP) delayed release capsule 35,000 Units 35,000 Units (rounded from 36,000 Units), Oral, 3 TIMES DAILY WITH MEALS, First dose on Sun05/26/25 at 0800, Until Discontinued, Substituted for pancrelipase (CREON). 0916 (Given - Provider: Clementina Ahumada RN)1204 (Given - Provider: Clementina Ahumada RN)1715 (Given - Provider: Clementina Ahumada RN) 0845 (Given - Provider: Sneha Sims RN)1214 (Given - Provider: Sneha Sims RN)1700 (Due) metoclopramide (REGLAN) injection 10 mg (COMPLETED) 10 mg, IntraVENous, ONCE, 1 dose, On Sun05/25/25 at 1745, IV Push: Max 10 mg over 1-2 minutes. 1806 (Given - Provider: Manuela Payan RN) montelukast (SINGULAIR) tablet 10 mg 10 mg, Oral, NIGHTLY, First dose on Sun05/26/25 at 0045, Until Discontinued 0049 (Given - Provider: Cristina Moreau RN)2104 (Given - Provider: Rosenda Dvais RN) 2100 (Due) morphine sulfate (PF) injection 4 mg (COMPLETED) 4 mg, IntraVENous, ONCE, 1 dose, On Sun05/25/25 at 1745, If oral and IV narcotics ordered, use oral first and only use IV if oral is ineffective or cannot take oral. Do Not give oral and IV within 1 hour of each other unless specifically ordered. 180 (Given - Provider: Manuela Payan, [facility]) morphine sulfate (PF) injection 4 mg (COMPLETED) 4 mg, IntraVENous, ONCE, 1 dose, On Sun05/25/25 at 2000, If oral and IV narcotics ordered, use oral first and only use IV if oral is ineffective or cannot take oral. Do Not give oral and IV within 1 hour of each other unless specifically ordered. 1951 (Given - Provider: Mellissa Akins, [facility]) pantoprazole (PROTONIX) tablet 40 mg 40 mg, Oral, DAILY BEFORE BREAKFAST, First dose on Sun05/26/25 at 0700, Until Discontinued, Do not crush or break. Substituted for Omeprazole (PRILOSEC). 09 (Given - Provider: Clementina Ahumada RN) 08 (Given - Provider: Sneha Sims RN) prazosin (MINIPRESS) capsule 1 mg 1 mg, Oral, NIGHTLY, First dose on Sun05/26/25 at 0045, Until Discontinued 004 (Given - Provider: Cristina Moreau RN)2103 (Given - Provider: Rosenda Davis RN) 2099 (Due) sodium chloride 0.9 % bolus 500 mL (COMPLETED) 500 mL, IntraVENous, at 247.9 mL/hr, Administer over 121 Minutes, ONCE, On Sun05/25/25 at 1745, For 1 dose 180 (New Bag - Provider: Manuela Payan RN)2005 (Stopped - Provider: Mellissa Akins, [facility]) sodium chloride 0.9 % bolus 500 mL 500 mL, IntraVENous, at 247.9 mL/hr, Administer over 121 Minutes, ONCE, On Sun05/25/25 at 2330, For 1 dose 0039 (Not Given - Provider: Cristina Moreau RN - Reason: Other - Comment: ER order) sodium chloride flush 0.9 % injection 5-40 mL 5-40 mL, IntraVENous, EVERY 12 HOURS SCHEDULED (2 times per day), First dose on Sun05/26/25 at 0900, Until Discontinued, For Line Patency: Peripheral IV = 5 mL; Midline or Central Line = 10 mL/lumen. If following IV push medication, administer flush at same rate as the IV push. Flush volume is determined by type of infusion therapy being given. For non-viscous solutions use: Peripheral IV = 5 mL Midline or Central Line = 10 mL/lumen For viscous solutions (i.e. blood components, parenteral nutrition, contrast media, or after obtaining blood sample) use: Peripheral IV = 10 mL Midline or Central Line = 20 mL/lumen 916 (Not Given - Provider: Clementina Ahumada RN - Reason: IV Fluid Infusing)2005 (Not Given - Provider: Rosenda Davis RN - Reason: IV Fluid Infusing) 08 (Given - Provider: Sneha Sims RN)2099 (Due) tamsulosin (FLOMAX) capsule 0.4 mg 0.4 mg, Oral, DAILY, First dose on Sun05/26/25 at 0900, Until Discontinued, Do not crush or break. Give 30 minutes after a full meal to limit risk of orthostatic hypotension/falls. 910 (Given - Provider: Clementina Ahumada RN) 08 (Given - Provider: Sneha Sims RN) traMADol (ULTRAM) tablet 100 mg 100 mg, Oral, 2 TIMES DAILY, First dose on Sun05/26/25 at 0045, Until Discontinued 50 (Not Given - Provider: Cristina Moreau RN - Reason: Patient/family refused)910 (Given - Provider: Clementina Ahumada RN)2103 (Given - Provider: Rosenda Davis RN) 08 (Given - Provider: Sneha Sims RN)2099 (Due) vitamin B and C (TOTAL B-C) tablet 1 tablet 1 tablet, Oral, DAILY, First dose on Sun05/26/25 at 0900, Until Discontinued 910 (Given - Provider: Clementina Ahumada RN) 08 (Given - Provider: Sneha Sims RN) ziprasidone (GEODON) capsule 40 mg 40 mg, Oral, NIGHTLY, First dose on Sun05/26/25 at 0045, Until Discontinued, May cause prolongation of QT interval. Take with food. 47 (Given - Provider: Cristina Moreau RN)2104 (Given - Provider: Rosenda Davis RN) 2099 (Due) Continuous Medication Order 05/25/2025 05/26/2025 05/27/2025 0.9 % sodium chloride infusion IntraVENous, at 75 mL/hr, CONTINUOUS, Starting on Sun05/26/25 at 0045, For 24 hours, Complete last bag that is running at 24 hours and then saline lock IV 0120 (New Bag - Provider: Cristina Moreau RN)0120 (Rate/Dose Verify - Provider: Clementina Ahumada RN)0738 (Paused - Provider: Clementina Ahumada, [facility])0759 (Restarted - Provider: Clementina Ahumdaa, [facility])0800 (Paused - Provider: Clementina Ahumada RN)0819 (Restarted - Provider: Clementina Ahumada RN)1522 (Stopped - Provider: Clementina Ahumada RN)1522 (New Bag - Provider: Maia Lowery RN)1715 (Rate/Dose Verify - Provider: Clementina Ahumada RN) 0000 (Stopped - Provider: Rosenda Davis RN) PRN Medication Order 05/25/2025 05/26/2025 05/27/2025 0.9 % sodium chloride infusion IntraVENous, at 100 mL/hr, PRN, If patient receiving piggyback infusions without ordered maintenance IV fluids or with frequent/long duration piggyback infusions, Starting on Sun05/26/25 at 0016, Administer at the same rate as the piggyback being infused. acetaminophen (TYLENOL) suppository 650 mg(Linked Group 2) 650 mg, Rectal, EVERY 6 HOURS PRN, Starting on Sun05/26/25 at 0016, Until Discontinued, Pain Mild (1-3) OR per patient request for pain score (4-10), Fever, For temp greater than 100.4 F (38 C), Administer if oral route cannot be used. acetaminophen (TYLENOL) tablet 650 mg(Linked Group 2) 650 mg, Oral, EVERY 6 HOURS PRN, Starting on Sun05/26/25 at 0016, Until Discontinued, Pain Mild (1-3) OR per patient request for pain score (4-10), Fever, For temp greater than 100.4 F (38 C), Maximum dose of acetaminophen is 4000 mg from all sources in 24 hours. albuterol sulfate HFA (PROVENTIL;VENTOLIN;PROAIR) 108 (90 Base) MCG/ACT inhaler 2 puff 2 puff, Inhalation, EVERY 4 HOURS PRN, Starting on Sun05/26/25 at 0301, Until Discontinued, Wheezing, Shortness of Breath, Initiate RT Bronchodilator Protocol: Yes - Inpatient Protocol, Substituted for albuterol (PROAIR RESPICLICK) dextrose 10 % infusion IntraVENous, at 100 mL/hr, CONTINUOUS PRN, if blood glucose remains LESS THAN 70 mg/dL after 2 dextrose 10% intravenous boluses or administration of glucagon, Starting on Sun05/26/25 at 0626, If blood glucose fails to stabilize after 2 dextrose 10% intravenous boluses or glucagon administration, start dextrose 10% infusion at 100 mL/hour and repeat blood glucose at 30 and 60 minutes. If blood glucose is GREATER THAN 70 mg/dL after 60 minutes, discontinue dextrose 10% infusion. dextrose bolus 10% 125 mL(Linked Group 3) 125 mL, IntraVENous, at 937.5 mL/hr, Administer over 8 Minutes, PRN, Other, Blood glucose 40 - 69 mg/dL and patient NOT ALERT or NPO, Starting on Sun05/26/25 at 0626, Repeat blood glucose in 15 minutes. If blood glucose remains LESS THAN 70 mg/dL, repeat treatment and recheck blood glucose in 15 minutes x 2. If using glycemic management system, dose as instructed per system. If blood glucose remains LESS THAN 70 mg/dL after 2 intravenous boluses start dextrose 10% at 100 mL/hour and notify provider. dextrose bolus 10% 250 mL(Linked Group 3) 250 mL, IntraVENous, at 937.5 mL/hr, Administer over 16 Minutes, PRN, Other, Blood glucose LESS THAN 40 mg/dL and patient NOT ALERT or NPO, Starting on Sun05/26/25 at 0626, Repeat blood glucose in 15 minutes. If blood glucose remains LESS THAN 70 mg/dL, repeat treatment and recheck blood glucose in 15 minutes x 2. If using glycemic management system, dose as instructed per system. If blood glucose remains LESS THAN 70 mg/dL after 2 intravenous boluses start dextrose 10% at 100 mL/hour and notify provider. glucagon injection 1 mg 1 mg, SubCUTAneous, PRN, Starting on Sun05/26/25 at 0626, Until Discontinued, Low blood sugar, Blood glucose LESS THAN 70 mg/dL and patient NOT ALERT or NPO and does not have IV access., After administration, attempt intravenous access and start dextrose 10% at 100 mL/hr. Repeat blood glucose in 15 minutes x 2 and notify provider. Reconstitute powder for injection by adding 1 mL of certified registered locksmith-supplied sterile diluent or sterile water for injection to a vial containing 1 mg of the drug, to provide solutions containing 1 mg/mL. Shake vial gently to dissolve. glucose chewable tablet 16 g 16 g (4 tablet), Oral, PRN, Starting on Sun05/26/25 at 0626, Until Discontinued, Low blood sugar, If blood glucose is LESS THAN 70 mg/dL and patient is alert and tolerating oral. Give 4 tablets (16g) Repeat blood glucose in 15 minutes. If blood glucose is LESS THAN 70 mg/dL, repeat treatment and recheck blood glucose in 15 minutes x 2. If blood glucose remains LESS THAN 70 mg/dL, notify provider. ipratropium 0.5 mg-albuterol 2.5 mg (DUONEB) nebulizer solution 1 Dose (CANCELED) 1 Dose, Inhalation, EVERY 4 HOURS PRN, Starting on Sun05/26/25 at 0016, Until Sun05/26/25 at 0304, Shortness of Breath, Wheezing, Initiate RT Bronchodilator Protocol: Yes - Inpatient Protocol 0104 (Given - Provider: Ana Barrios RCP) qvogdu-xeordldl-tpyfodj (ZENPEP) delayed release capsule 35,000 Units 35,000 Units, Oral, ONCE PRN, 1 dose, Starting on Sun05/26/25 at 1155, Until Discontinued, with snack metoclopramide (REGLAN) injection 5 mg 5 mg, IntraVENous, EVERY 6 HOURS PRN, Starting on Sun05/26/25 at 0119, Until Discontinued, Heartburn, IV Push: Max 10 mg over 1-2 minutes. oxyCODONE (ROXICODONE) immediate release tablet 5 mg 5 mg, Oral, EVERY 4 HOURS PRN, Starting on Sun05/26/25 at 0119, Until Discontinued, Pain Moderate (4-6) OR per patient request for pain score (7-10) 0133 (Given - Provider: Cristina Moreau RN)0714 (Given - Provider: Maia Lowery RN)1352 (Given - Provider: Clementina Ahumada RN) polyethylene glycol (GLYCOLAX) packet 17 g 17 g, Oral, DAILY PRN, Starting on Sun05/26/25 at 0016, Until Discontinued, Constipation, First line therapy for constipation promethazine (PHENERGAN) tablet 25 mg 25 mg, Oral, 4 TIMES DAILY PRN, Starting on Sun05/26/25 at 0016, Until Discontinued, Nausea sodium chloride flush 0.9 % injection 5-40 mL 5-40 mL, IntraVENous, PRN, Starting on Sun05/26/25 at 0016, Until Discontinued, Line Care, After every IV line use, For Line Patency: Peripheral IV = 5 mL; Midline or Central Line = 10 mL/lumen. If following IV push medication, administer flush at same rate as the IV push. Flush volume is determined by type of infusion therapy being given. For non-viscous solutions use: Peripheral IV = 5 mL Midline or Central Line = 10 mL/lumen For viscous solutions (i.e. blood components, parenteral nutrition, contrast media, or after obtaining blood sample) use: Peripheral IV = 10 mL Midline or Central Line = 20 mL/lumen Linked Groups Order Group 1: cefTRIAXone (ROCEPHIN) 1,000 mg in sterile water 10 mL IV syringe (CANCELED)Jump to med 1,000 mg, IntraVENous, EVERY 24 HOURS, First dose on Sun05/26/25 at 2300, For 5 days, Administer as slow IV Push over 5 mins Reconstitute 1 g vials with 9.6 mL of designated diluent to produce a 100 mg/mL solution. And azithromycin (ZITHROMAX) tablet 500 mg (CANCELED)Jump to med 500 mg, Oral, EVERY 24 HOURS, 3 doses, First dose on Sun05/26/25 at 2300, Last dose on Sun05/28/25 at 2300, Antimicrobial Indications: Pneumonia (CAP), CAP duration of therapy: Other, Other CAP Duration: 3 days Group 2: acetaminophen (TYLENOL) tablet 650 mgJump to med 650 mg, Oral, EVERY 6 HOURS PRN, Starting on Sun05/26/25 at 0016, Until Discontinued, Pain Mild (1-3) OR per patient request for pain score (4-10), Fever, For temp greater than 100.4 F (38 C), Maximum dose of acetaminophen is 4000 mg from all sources in 24 hours. Or acetaminophen (TYLENOL) suppository 650 mgJump to med 650 mg, Rectal, EVERY 6 HOURS PRN, Starting on Sun05/26/25 at 0016, Until Discontinued, Pain Mild (1-3) OR per patient request for pain score (4-10), Fever, For temp greater than 100.4 F (38 C), Administer if oral route cannot be used. Group 3: dextrose bolus 10% 125 mLJump to med 125 mL, IntraVENous, at 937.5 mL/hr, Administer over 8 Minutes, PRN, Other, Blood glucose 40 - 69 mg/dL and patient NOT ALERT or NPO, Starting on Sun05/26/25 at 0626, Repeat blood glucose in 15 minutes. If blood glucose remains LESS THAN 70 mg/dL, repeat treatment and recheck blood glucose in 15 minutes x 2. If using glycemic management system, dose as instructed per system. If blood glucose remains LESS THAN 70 mg/dL after 2 intravenous boluses start dextrose 10% at 100 mL/hour and notify provider. Or dextrose bolus 10% 250 mLJump to med 250 mL, IntraVENous, at 937.5 mL/hr, Administer over 16 Minutes, PRN, Other, Blood glucose LESS THAN 40 mg/dL and patient NOT ALERT or NPO, Starting on Sun05/26/25 at 0626, Repeat blood glucose in 15 minutes. If blood glucose remains LESS THAN 70 mg/dL, repeat treatment and recheck blood glucose in 15 minutes x 2. If using glycemic management system, dose as instructed per system. If blood glucose remains LESS THAN 70 mg/dL after 2 intravenous boluses start dextrose 10% at 100 mL/hour and notify provider. Scheduled Medication Order 05/28/2025 05/29/2025 05/30/2025 acetaminophen (TYLENOL) tablet 650 mg 650 mg, Oral, ONCE, 1 dose, On 05/30/25 at 1800, Maximum dose of acetaminophen is 4000 mg from all sources in 24 hours. 1810 (Not Given - Pr ovider: Martha Hopson RN - Reason: Patient/family refused - Comment: Patient refused states that tylenol does not work for him.) clonazePAM (KLONOPIN) tablet 1 mg (COMPLETED) 1 mg, Oral, Once, 1 dose, On 05/30/25 at 2300 2303 (Given - Provid er: Iva Calix RN) clonazePAM (KLONOPIN) tablet 1 mg (COMPLETED) 1 mg, Oral, Once, 1 dose, On 05/30/25 at 2330 2320 (Given - Provid er: Lizzy Gonzales RN) doxycycline hyclate (VIBRAMYCIN) capsule 100 mg (COMPLETED) 100 mg, Oral, ONCE, 1 dose, On 05/30/25 at 2300, Antimicrobial Indications: Pneumonia (CAP), This medication can interact with tube feedings (TF)- obtain MD order to manage. Recommend holding TF for 1 h before and 2 h after dose. Take 1 h before or 2 h after dairy, calcium, iron, magnesium, aluminum or zinc. 230 (Given - Provid er: Iva Calix RN) hnsktr-ypeplcsi-ixphnzo (ZENPEP) delayed release capsule 10,000 Units 10,000 Units, Oral, 3 TIMES DAILY WITH MEALS, First dose on 05/30/25 at 1745, Until Discontinued 1836 (Given - Provid er: Iva Calix RN) LORazepam (ATIVAN) tablet 1 mg (COMPLETED) 1 mg, Oral, ONCE, 1 dose, On 05/30/25 at 1715 1718 (Given - Provid er: Martha Hopson RN) oxyCODONE-acetaminophen (PERCOCET) 5-325 MG per tablet 1 tablet (COMPLETED) 1 tablet, Oral, ONCE, 1 dose, On 05/30/25 at 211, Maximum dose of acetaminophen is 4000 mg from all sources in 24 hours. 2112 (Given - Provid er: Iva Calix RN) traMADol (ULTRAM) tablet 50 mg 50 mg, Oral, ONCE, 1 dose, On 05/30/25 at 1830 1840 (Not Given - Pr ovider: Marleen Ramirez RN - Reason: Patient/family refused - Comment: refused; wanted stronger pain medications than the ordered tramadol; technical proposal writer did tell physician) traMADol (ULTRAM) tablet 50 mg 50 mg, Oral, ONCE, 1 dose, On 05/30/25 at 2129 2138 (Not Given - Pr ovider: Lizzy Gonzales RN - Reason: Other - Comment: Pt given Percocet for pain) Scheduled Medication Order 06/16/2025 06/17/2025 06/18/2025 cefdinir (OMNICEF) capsule 300 mg (COMPLETED) 300 mg, Oral, ONCE, 1 dose, On Vashti 06/18/25 at 1830, Antimicrobial Indications: Pneumonia (CAP) 183 (Given - Provid er: Jess Hackett RN) doxycycline hyclate (VIBRAMYCIN) capsule 100 mg (COMPLETED) 100 mg, Oral, ONCE, 1 dose, On Vashti 06/18/25 at 1830, Antimicrobial Indications: Pneumonia (CAP), This medication can interact with tube feedings (TF)- obtain MD order to manage. Recommend holding TF for 1 h before and 2 h after dose. Take 1 h before or 2 h after dairy, calcium, iron, magnesium, aluminum or zinc. 183 (Given - Provid er: Jess Hackett RN) morphine sulfate (PF) injection 4 mg (COMPLETED) 4 mg, IntraVENous, ONCE, 1 dose, On Vashti 06/18/25 at 1545, If oral and IV narcotics ordered, use oral first and only use IV if oral is ineffective or cannot take oral. Do Not give oral and IV within 1 hour of each other unless specifically ordered. 1612 (Given - Provid er: Martha Hopson RN) prochlorperazine (COMPAZINE) injection 10 mg (COMPLETED) 10 mg, IntraVENous, ONCE, 1 dose, On Vashti 06/18/25 at 1545, If administering IV push, administer at a maximum rate of 5 mg/minute. Patients should remain lying down following administration and be reassessed for relief of nausea and presence of hypotension. Patients should be assisted the first time they get up after administration. 1615 (Given - Provid er: Martha Hopson RN) sodium chloride 0.9 % bolus 1,000 mL (COMPLETED) 1,000 mL (10.6 mL/kg), IntraVENous, at 2,000 mL/hr, Administer over 30 Minutes, ONCE, On Vashti 06/18/25 at 1545, For 1 dose 1608 (New Bag - Prov ider: Martha Hopson RN)1748 (Stopped - Provider: Martha Hopson RN) PRN Medication Order 06/16/2025 06/17/2025 06/18/2025 iopamidol (ISOVUE-370) 76 % injection 75 mL (COMPLETED) 75 mL, IntraVENous, IMG ONCE PRN, 1 dose, Starting on Vashti 06/18/25 at 1654, Until Vashti 06/18/25 at 1704, Other 1704 (Given - Provid er: Alexandrea Wilcox) Source Comments (unrecognize d section and content) In the event this informatio n is protected by the Federal Confidentiality of Alcohol and Drug Abuse Patient Records regulations: The Federal rules restrict any use of the information to criminally investigate or prosecute any alcohol or drug abuse patient.[facility] the event this information is protected by the Federal Confidentiality of Alcohol and Drug Abuse Patient Records regulations: The Federal rules restrict any use of the information to criminally investigate or prosecute any alcohol or drug abuse patient.[facility] the event this information is protected by the Federal Confidentiality of Alcohol and Drug Abuse Patient Records regulations: The Federal rules restrict any use of the information to criminally investigate or prosecute any alcohol or drug abuse patient.[facility] the event this information is protected by the Federal Confidentiality of Alcohol and Drug Abuse Patient Records regulations: The Federal rules restrict any use of the information to criminally investigate or prosecute any alcohol or drug abuse patient.[facility] the event this information is protected by the Federal Confidentiality of Alcohol and Drug Abuse Patient Records regulations: The Federal rules restrict any use of the information to criminally investigate or prosecute any alcohol or drug abuse patient.[facility] the event this information is protected by the Federal Confidentiality of Alcohol and Drug Abuse Patient Records regulations: The Federal rules restrict any use of the information to criminally investigate or prosecute any alcohol or drug abuse patient.[facility]In the event this information is protected by the Federal Confidentiality of Alcohol and Drug Abuse Patient Records regulations: The Federal rules restrict any use of the information to criminally investigate or prosecute any alcohol or drug abuse patient.[facility]In the event this information is protected by the Federal Confidentiality of Alcohol and Drug Abuse Patient Records regulations: The Federal rules restrict any use of the information to criminally investigate or prosecute any alcohol or drug abuse patient.[facility]In the event this information is protected by the Federal Confidentiality of Alcohol and Drug Abuse Patient Records regulations: The Federal rules restrict any use of the information to criminally investigate or prosecute any alcohol or drug abuse patient.[facility]In the event this information is protected by the Federal Confidentiality of Alcohol and Drug Abuse Patient Records regulations: The Federal rules restrict any use of the information to criminally investigate or prosecute any alcohol or drug abuse patient.[facility]In the event this information is protected by the Federal Confidentiality of Alcohol and Drug Abuse Patient Records regulations: The Federal rules restrict any use of the information to criminally investigate or prosecute any alcohol or drug abuse patient.[facility]In the event this information is protected by the Federal Confidentiality of Alcohol and Drug Abuse Patient Records regulations: The Federal rules restrict any use of the information to criminally investigate or prosecute any alcohol or drug abuse patient.[facility]In the event this information is protected by the Federal Confidentiality of Alcohol and Drug Abuse Patient Records regulations: The Federal rules restrict any use of the information to criminally investigate or prosecute any alcohol or drug abuse patient.[facility]In the event this information is protected by the Federal Confidentiality of Alcohol and Drug Abuse Patient Records regulations: The Federal rules restrict any use of the information to criminally investigate or prosecute any alcohol or drug abuse patient.[facility]In the event this information is protected by the Federal Confidentiality of Alcohol and Drug Abuse Patient Records regulations: The Federal rules restrict any use of the information to criminally investigate or prosecute any alcohol or drug abuse patient.[facility]In the event this information is protected by the Federal Confidentiality of Alcohol and Drug Abuse Patient Records regulations: The Federal rules restrict any use of the information to criminally investigate or prosecute any alcohol or drug abuse patient.[facility]In the event this information is protected by the Federal Confidentiality of Alcohol and Drug Abuse Patient Records regulations: The Federal rules restrict any use of the information to criminally investigate or prosecute any alcohol or drug abuse patient.[facility]In the event this information is protected by the Federal Confidentiality of Alcohol and Drug Abuse Patient Records regulations: The Federal rules restrict any use of the information to criminally investigate or prosecute any alcohol or drug abuse patient.[facility] [place]In the event this information is protected by the Federal Confidentiality of Alcohol and Drug Abuse Patient Records regulations: The Federal rules restrict any use of the information to criminally investigate or prosecute any alcohol or drug abuse patient.[facility]In the event this information is protected by the Federal Confidentiality of Alcohol and Drug Abuse Patient Records regulations: The Federal rules restrict any use of the information to criminally investigate or prosecute any alcohol or drug abuse patient.[facility] [place]In the event this information is protected by the Federal Confidentiality of Alcohol and Drug Abuse Patient Records regulations: The Federal rules restrict any use of the information to criminally investigate or prosecute any alcohol or drug abuse patient.[facility]In the event this information is protected by the Federal Confidentiality of Alcohol and Drug Abuse Patient Records regulations: The Federal rules restrict any use of the information to criminally investigate or prosecute any alcohol or drug abuse patient.[facility]In the event this information is protected by the Federal Confidentiality of Alcohol and Drug Abuse Patient Records regulations: The Federal rules restrict any use of the information to criminally investigate or prosecute any alcohol or drug abuse patient.[facility]ronIn the event this information is protected by the Federal Confidentiality of Alcohol and Drug Abuse Patient Records regulations: The Federal rules restrict any use of the information to criminally investigate or prosecute any alcohol or drug abuse patient.[facility]In the event this information is protected by the Federal Confidentiality of Alcohol and Drug Abuse Patient Records regulations: The Federal rules restrict any use of the information to criminally investigate or prosecute any alcohol or drug abuse patient.[facility] [place]In the event this information is protected by the Federal Confidentiality of Alcohol and Drug Abuse Patient Records regulations: The Federal rules restrict any use of the information to criminally investigate or prosecute any alcohol or drug abuse patient.[facility]In the event this information is protected by the Federal Confidentiality of Alcohol and Drug Abuse Patient Records regulations: The Federal rules restrict any use of the information to criminally investigate or prosecute any alcohol or drug abuse patient.[facility]ronIn the event this information is protected by the Federal Confidentiality of Alcohol and Drug Abuse Patient Records regulations: The Federal rules restrict any use of the information to criminally investigate or prosecute any alcohol or drug abuse patient.[facility] [place]ronIn the event this information is protected by the Federal Confidentiality of Alcohol and Drug Abuse Patient Records regulations: The Federal rules restrict any use of the information to criminally investigate or prosecute any alcohol or drug abuse patient.[facility]ronIn the event this information is protected by the Federal Confidentiality of Alcohol and Drug Abuse Patient Records regulations: The Federal rules restrict any use of the information to criminally investigate or prosecute any alcohol or drug abuse patient.[facility] [place]ronIn the event this information is protected by the Federal Confidentiality of Alcohol and Drug Abuse Patient Records regulations: The Federal rules restrict any use of the information to criminally investigate or prosecute any alcohol or drug abuse patient.[facility] [place]In the event this information is protected by the Federal Confidentiality of Alcohol and Drug Abuse Patient Records regulations: The Federal rules restrict any use of the information to criminally investigate or prosecute any alcohol or drug abuse patient.[facility] [place]ronIn the event this information is protected by the Federal Confidentiality of Alcohol and Drug Abuse Patient Records regulations: The Federal rules restrict any use of the information to criminally investigate or prosecute any alcohol or drug abuse patient.[facility] [place]In the event this information is protected by the Federal Confidentiality of Alcohol and Drug Abuse Patient Records regulations: The Federal rules restrict any use of the information to criminally investigate or prosecute any alcohol or drug abuse patient.[facility]In the event this information is protected by the Federal Confidentiality of Alcohol and Drug Abuse Patient Records regulations: The Federal rules restrict any use of the information to criminally investigate or prosecute any alcohol or drug abuse patient.[facility] [place]ronIn the event this information is protected by the Federal Confidentiality of Alcohol and Drug Abuse Patient Records regulations: The Federal rules restrict any use of the information to criminally investigate or prosecute any alcohol or drug abuse patient.[facility] [place]In the event this information is protected by the Federal Confidentiality of Alcohol and Drug Abuse Patient Records regulations: The Federal rules restrict any use of the information to criminally investigate or prosecute any alcohol or drug abuse patient.[facility] [place]ronIn the event this information is protected by the Federal Confidentiality of Alcohol and Drug Abuse Patient Records regulations: The Federal rules restrict any use of the information to criminally investigate or prosecute any alcohol or drug abuse patient.[facility] [place]ronIn the event this information is protected by the Federal Confidentiality of Alcohol and Drug Abuse Patient Records regulations: The Federal rules restrict any use of the information to criminally investigate or prosecute any alcohol or drug abuse patient.[facility] [place]ronIn the event this information is protected by the Federal Confidentiality of Alcohol and Drug Abuse Patient Records regulations: The Federal rules restrict any use of the information to criminally investigate or prosecute any alcohol or drug abuse patient.[facility] [place]ronIn the event this information is protected by the Federal Confidentiality of Alcohol and Drug Abuse Patient Records regulations: The Federal rules restrict any use of the information to criminally investigate or prosecute any alcohol or drug abuse patient.[facility] [place]ronIn the event this information is protected by the Federal Confidentiality of Alcohol and Drug Abuse Patient Records regulations: The Federal rules restrict any use of the information to criminally investigate or prosecute any alcohol or drug abuse patient.[facility] [place]ronIn the event this information is protected by the Federal Confidentiality of Alcohol and Drug Abuse Patient Records regulations: The Federal rules restrict any use of the information to criminally investigate or prosecute any alcohol or drug abuse patient.[facility] [place]ronIn the event this information is protected by the Federal Confidentiality of Alcohol and Drug Abuse Patient Records regulations: The Federal rules restrict any use of the information to criminally investigate or prosecute any alcohol or drug abuse patient.[facility] [place]ronIn the event this information is protected by the Federal Confidentiality of Alcohol and Drug Abuse Patient Records regulations: The Federal rules restrict any use of the information to criminally investigate or prosecute any alcohol or drug abuse patient.[facility] [place]ronIn the event this information is protected by the Federal Confidentiality of Alcohol and Drug Abuse Patient Records regulations: The Federal rules restrict any use of the information to criminally investigate or prosecute any alcohol or drug abuse patient.[facility] [place]In the event this information is protected by the Federal Confidentiality of Alcohol and Drug Abuse Patient Records regulations: The Federal rules restrict any use of the information to criminally investigate or prosecute any alcohol or drug abuse patient.[facility] [place]In the event this information is protected by the Federal Confidentiality of Alcohol and Drug Abuse Patient Records regulations: The Federal rules restrict any use of the information to criminally investigate or prosecute any alcohol or drug abuse patient.[facility]ronIn the event this information is protected by the Federal Confidentiality of Alcohol and Drug Abuse Patient Records regulations: The Federal rules restrict any use of the information to criminally investigate or prosecute any alcohol or drug abuse patient.[facility]ronIn the event this information is protected by the Federal Confidentiality of Alcohol and Drug Abuse Patient Records regulations: The Federal rules restrict any use of the information to criminally investigate or prosecute any alcohol or drug abuse patient.[facility] [place]In the event this information is protected by the Federal Confidentiality of Alcohol and Drug Abuse Patient Records regulations: The Federal rules restrict any use of the information to criminally investigate or prosecute any alcohol or drug abuse patient.[facility] [place]In the event this information is protected by the Federal Confidentiality of Alcohol and Drug Abuse Patient Records regulations: The Federal rules restrict any use of the information to criminally investigate or prosecute any alcohol or drug abuse patient.[facility] [place]ronIn the event this information is protected by the Federal Confidentiality of Alcohol and Drug Abuse Patient Records regulations: The Federal rules restrict any use of the information to criminally investigate or prosecute any alcohol or drug abuse patient.[facility] [place]In the event this information is protected by the Federal Confidentiality of Alcohol and Drug Abuse Patient Records regulations: The Federal rules restrict any use of the information to criminally investigate or prosecute any alcohol or drug abuse patient.[facility]In the event this information is protected by the Federal Confidentiality of Alcohol and Drug Abuse Patient Records regulations: The Federal rules restrict any use of the information to criminally investigate or prosecute any alcohol or drug abuse patient.[facility]ronIn the event this information is protected by the Federal Confidentiality of Alcohol and Drug Abuse Patient Records regulations: The Federal rules restrict any use of the information to criminally investigate or prosecute any alcohol or drug abuse patient.[facility]ronIn the event this information is protected by the Federal Confidentiality of Alcohol and Drug Abuse Patient Records regulations: The Federal rules restrict any use of the information to criminally investigate or prosecute any alcohol or drug abuse patient.[facility] [place]In the event this information is protected by the Federal Confidentiality of Alcohol and Drug Abuse Patient Records regulations: The Federal rules restrict any use of the information to criminally investigate or prosecute any alcohol or drug abuse patient.[facility] [place]ronIn the event this information is protected by the Federal Confidentiality of Alcohol and Drug Abuse Patient Records regulations: The Federal rules restrict any use of the information to criminally investigate or prosecute any alcohol or drug abuse patient.[facility]ronIn the event this information is protected by the Federal Confidentiality of Alcohol and Drug Abuse Patient Records regulations: The Federal rules restrict any use of the information to criminally investigate or prosecute any alcohol or drug abuse patient.[facility]ronIn the event this information is protected by the Federal Confidentiality of Alcohol and Drug Abuse Patient Records regulations: The Federal rules restrict any use of the information to criminally investigate or prosecute any alcohol or drug abuse patient.[facility] Ordered Prescriptions (unrec ognized section and content) [...] needed for Pain 12 tablet 09/05/2024 09/08/2024 Prescription Sig Dispensed Refills Start Date End Da te methocarbamol (ROBAXIN) 500 MG tablet Take 1 tablet by mouth 4 times daily for 7 days 28 tablet 11/30/2024 12/07/2024 Prescription Sig Dispensed Refills Start Date End Da te cyclobenzaprine (FLEXERIL) 5 MG tablet Take 1 tablet by mouth 2 times daily as needed for Muscle spasms 10 tablet 12/05/2024 12/15/2024 lidocaine 4 % external patch Place 1 patch onto the skin daily 30 patch 12/05/2024 01/04/2025 Prescription Sig Dispense Quantity Refills Last Filled Start Date End Date doxycycline hyclate (VIBRAMYCIN) 100 MG capsule Take 1 capsule by mouth every 12 hours for 15 doses 15 capsule 05/27/2025 amoxicillin-clavul anate (AUGMENTIN) 875-125 MG per tablet Take 1 tablet by mouth every 12 hours for 15 doses 15 tablet 05/27/2025 Prescription Sig Dispense Quantity Refills Last Filled Start Date End Date doxycycline hyclate (VIBRA-TABS) 100 MG tablet Take 1 tablet by mouth 2 times daily for 10 days 20 tablet 06/18/2025 5 cefdinir (OMNICEF) 300 MG capsule Take 1 capsule by mouth 2 times daily for 10 days 20 capsule 06/18/2025 FOR RECORDS PERTAINING TO PATIENTS WHO ARE [...] BE BASED ON THE PRIMARY CLINICAL RECORDS. [facility] [employer] [facility]. provides no warranty or guarantee of the accuracy or completeness of information in this document.
--- NOTE | 2025-07-09 11:28 | PM.CN ---
Consult Note: HPI Data of Consult Patient: known to practice within the last 3 years Requesting Physician: Vanessa Chavez NP Primary Care Provider: Meg Lynn Consult Narrative Reason for consult: neck pain, back pain, bilateral knee pain Narrative: 54yom who presents for assessment of chronic back and knee pain. has continued in chiropractic therapy >6 weeks, without benefit. failed provider guided HEP for 6 weeks. uses tramadol. denies adverse med side effects. . pt previously underwent splenectomy and pancreatectomy at [facility], now utilizing an insulin pump for type 1 DM. continues to utilize scs system with mild benefit, has not met in person with [facility]. is on chronic clonazepam due to severe PTSD, former veterean with numerous injuries. recently underwent bilateral knee injections with less than 3 months improvement. cc:: CC: Vanessa Chavez NP Review of Systems ROS Musculoskeletal Reports: back pain, neck pain and extremity pain PFSH PFS Medical History Pancreatic cancer ?C25.9 - Malignant neoplasm of pancreas, unspecified (ICD-10) Diabetes ?E11.9 - Type 2 diabetes mellitus without complications (ICD-10) High cholesterol ?E78.00 - Pure hypercholesterolemia, unspecified (ICD-10) Surgical History History of back surgery ?Z98.890 - Other specified postprocedural states (ICD-10) Hx of cholecystectomy ?Z90.49 - Acquired absence of other specified parts of digestive tract (ICD-10) Status post insertion of spinal cord stimulator ?Z96.89 - Presence of other specified functional implants (ICD-10) History of kyphoplasty ?Z98.890 - Other specified postprocedural states (ICD-10) History of splenectomy ?Z90.81 - Acquired absence of spleen (ICD-10) 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 (ICD-10) Meds Home Medications and Allergies Home Medications ?Medication ?Instructions ?Recorded ?Confirmed ?Type amitriptyline 50 mg tablet 50 mg PO DAILY 04/14/24 12/22/24 History amlodipine 2.5 mg tablet 2.5 mg PO DAILY 04/14/24 12/22/24 History atorvastatin 40 mg tablet 40 mg PO DAILY 04/14/24 12/22/24 History cholecalciferol (vitamin D3) 50 5,000 unit PO DAILY 04/14/24 12/22/24 History mcg (2,000 unit) capsule (D3-2000) fenofibrate 54 mg tablet 54 mg PO DAILY 04/14/24 12/22/24 History ferrous sulfate 325 mg (65 mg 325 mg PO DAILY 04/14/24 12/22/24 History iron) tablet (Feosol) fexofenadine 180 mg tablet 180 mg PO DAILY 04/14/24 12/22/24 History pohhle-pdetdbnm-lhcwdye 1 cap PO TID 04/14/24 12/22/24 History 36,000-114,000-180,000 unit capsule,delay rel (Creon) mepolizumab 100 mg/mL subcutaneous mg subcut .MONTHLY 04/14/24 History syringe (Nucala) montelukast 10 mg tablet 10 mg PO DAILY 04/14/24 12/22/24 History omeprazole 40 mg capsule,delayed 40 mg PO DAILY 04/14/24 12/22/24 History release prazosin 1 mg capsule 1 mg PO DAILY 04/14/24 12/22/24 History vitamin B complex (Vitamins B 1 cap PO DAILY 04/14/24 12/22/24 History Complex capsule) ziprasidone HCl 40 mg capsule 40 mg PO .QD 04/14/24 12/22/24 History fluticasone furoate 50 inhalation 11/24/24 History mcg-vilanterol 25 mcg/dose inhalation powder (Breo Ellipta) tramadol 100 mg tablet,extended 100 mg PO DAILY #30 tabs 04/02/25 Rx release 24 hr tramadol 50 mg tablet 100 mg (2 x 50 mg) PO BID PRN pain 04/02/25 Rx #120 tabs tramadol 100 mg tablet,extended 100 mg PO DAILY #30 tabs 04/21/25 Rx release 24 hr tramadol 50 mg tablet 100 mg (2 x 50 mg) PO BID PRN pain 04/21/25 Rx #120 tabs tramadol 100 mg capsule 100 mg PO DAILY PRN pain #30 caps 05/25/25 Rx 24h,extended release(25-75) tramadol 50 mg tablet See Rx Instructions .Route 05/25/25 Rx .COMPLEX PRN pain #120 tabs tramadol 100 mg tablet,extended 100 mg PO DAILY PRN pain #30 tabs 06/30/25 Rx release 24 hr tramadol 50 mg tablet 100 mg (2 x 50 mg) PO BID PRN pain 06/30/25 Rx #120 tabs Allergies Allergy/AdvReac Type Severity Reaction Status Date / Time codeine Allergy Mild Hives Verified 12/22/24 09:49 ibuprofen Allergy Mild Hives Verified 12/22/24 09:49 ondansetron (From Zofran) Allergy Mild Hives Verified 12/22/24 09:49 naproxen (From Aleve) AdvReac Mild Vomiting Verified 12/22/24 09:49 Exam Constitutional Documenting provider has reviewed patient's vital signs: yes Common normals: no apparent distress, oriented x3, healthy appearing, alert and well nourished General appearance: cooperative HENMT Common normals: normocephalic, hearing grossly normal bilaterally and moist oral mucous membranes Head and scalp: normocephalic Eye Common normals: PERRL Pupil: PERRL Neck & C-Spine Common normals: full ROM General: normal visual inspection Cervical spine: normal cervical lordosis, pain with cervical ROM and cervical spine tenderness Other: negative spurlings strength 5/5 in BUE Chest Common normals: inspection of chest normal Respiratory Common normals: normal respiratory effort, no retractions and no use of accessory muscles Back & Pelvis Thoracic spine/upper back: thoracic ROM normal, pain with ROM and thoracic spinal tenderness; no paraspinal muscle tenderness and no paraspinal muscle spasm Other: positive facet loading pain increased T6-9 facets negative radiculopathy diffuse pain Extremity Right lower extremity: knee joint Left lower extremity: knee joint Other: bilateral knees moderate edema, severe crepitus, enlarged proximal diameter. no instability noted. pain with medial and lateral stress testing Neuro Common normals: oriented x3 Sensorium/orientation: alert Motor exam: strength 5/5 throughout and no movement abnormalities noted Psych Common normals: mental status grossly normal, thought process normal, cooperative, affect normal, speech normal and activity/motor behavior normal Speech: normal speech Thought process: normal thought process Results Additional Findings Additional findings: If on a controlled substance or opioids, I have checked an [place] report on this patient and there are no aberrancies noted in the prescribing history.??If on a controlled substance or opioid a drug screen was completed and reviewed within the last year, and if there has not been a drug screen completed we ordered one today to monitor higher risk, state monitored pain medication use. As part of providing excellent, safe, comprehensive care, the following was completed at our patient's visit: 1. A medication reconciliation and review to ensure accurate knowledge of current/active medications, including asking our patients to inform us about any [id number] medications or herbal remedies/nutritional supplements/alternative remedies. 2. A review to specifically ensure our patients have had annual screening for screening for depression, screening for tobacco use, and screening for unhealthy alcohol use. For concerning screenings had a discussion with the patient, provided patient education, and recommended follow-up with primary care provider when appropriate. If patient noted with a risk of falling, they received education on strength, gait, and balance training to prevent future risk of falling. Portions of this note may have been carried over from the previous visit and updated as appropriate. Please note this office utilizes paper charting in addition to the electronic medical record. A list of current medications, vitals, and PMH is available there as the clinical staff outside of myself do not have access to [facility] charting during the clinic day operations. As part of providing quality comprehensive care the current medications, vitals, and PMH were reviewed in the paper chart. Assessment and Plan Assessment and Plan (1) Bilateral knee pain: Qualifiers: Chronicity: chronic Qualified Code(s): M25.561 - Pain in right knee; M25.562 - Pain in left knee; G89.29 - Other chronic pain (2) Bilateral primary osteoarthritis of knee: (3) Chronic prescription benzodiazepine use: (4) PTSD (post-traumatic stress disorder): (5) Insomnia: (6) Failed back syndrome: (7) Chronic use of opiate drug for therapeutic purpose: (8) Lumbar spondylosis: (9) Thoracic spondylosis: (10) Myalgia: Plan bilateral knee hyaluronic gel injection, pt not interested in joint replacement at this time start baclofen 5-10mg hs prn pain/spasms, we did discuss he is high risk for accidental overdose due to tramadol and clonazepam use continue tramadol 100mg ER daily and tramadol 50mg BID PRN pain will coordinate care with [facility] regarding scs system f/u with Dr Conklin for injections
== END 2025-07-09 10:47 | disposition home or self-care (01) ==
LOC: PM 10:48
PROVIDERS: PCP Nurse Practitioner Family; Visit Provider Nurse Practitioner
DX: M25.561 Pain in right knee (principal); M25.562 Pain in left knee; M17.0 Bilateral primary osteoarthritis of knee; Z79.891 Long term (current) use of opiate analgesic; F43.10 Post-traumatic stress disorder, unspecified; G47.00 Insomnia, unspecified; M96.1 Postlaminectomy syndrome, not elsewhere classified; M47.816 Spondylosis without myelopathy or radiculopathy, lumbar region; M47.814 Spondylosis without myelopathy or radiculopathy, thoracic region; M79.10 Myalgia, unspecified site; Z79.899 Other long term (current) drug therapy
CPT/HCPCS: G0463

== ENCOUNTER 2025-08-10 14:52 | Outpatient (OUT) | payer MEDICARE, MEDICAID, SELFPAY ==
--- OUTSIDE RECORDS SUMMARY | 2025-08-10 15:01 | XMS_ITS | CCD ---
Author Organization [facility] Care Team Providers Care Launderer Hand Name Role Phone LILLIAN REID Primary Care Unavailable JEANETTE, LILLIAN Primary Care Unavailable JEANETTE, LILLIAN Primary Care Unavailable JEANETTE, LILLIAN Primary Care Unavailable JEANETTE, LILLIAN Primary Care Unavailable JEANETTE, LILILAN Primary Care Unavailable JEANETTE, LILLIAN Primary Care Unavailable JEANETTE, LILLIAN Primary Care Unavailable JEANETTE, LILLIAN Primary Care Unavailable JEANETTE, LILLIAN Primary Care Unavailable JEANETTE, LILLIAN Primary Care Unavailable JEANETTE, LILLIAN Primary Care Unavailable JEANETTE, LILLIAN Primary Care Unavailable Gian ECONOMICS ANALYST - Eliana MUSTAFA Primary Care Provid er [...] Unavailable MIGDALIA ART Attending Unavailable GIAN, ELIANA L Primary Care Unavailable MOGHAL, JOANA N Attending Unavailable GIAN, ELIANA L Referring Unavailable GIAN, ELIANA L Primary Care Unavailable MOGHAL, JOANA N Attending Unavailable MOGHAL, JOANA N Referring Unavailable GIAN, ELIANA Palomo Primary Care Unavailable SLIME ROMANO Attending Unavailable GIAN, ELIANA Palomo Referring Unavailable GAIN, ELIANA Palomo Primary Care Unavailable SLIME ROMANO Attending Unavailable GIAN, ELIANA Palomo Referring Unavailable GAIN, ELIANA Palomo Primary Care Unavailable MOGHAL, JOANA [...] Attending Unavailable WESLY DAVIES Referring Unavailable Gian ECONOMICS ANALYST - PACKAGING SALES REPRESENTATIVE, Eliana Palomo Primary Care Provid er Samson REARDON, Wesly Crawford Unavailable [phone] Samson REARDON, Wesly Crawford Unavailable Gian ECONOMICS ANALYST.PACKAGING SALES REPRESENTATIVE, Eliana Primary Care Provider Gian ECONOMICS ANALYST-PACKAGING SALES REPRESENTATIVE, [facility] Primary Care Provider ELIEL STEPHENS Attending Unavailable GIAN, ELIANA Palomo Primary Care Unavailable Jm REARDON, Jacqueline Ruiz Attending Marnie Schultz MD, Benoit Nagy Consulting Unavacurly labomar Gian ECONOMICS ANALYST-PACKAGING SALES REPRESENTATIVE, [facility] Primary Care Unava ilnestor Schilling MD, Adelina Consulting Unavailable Wesly Davies Attending Unavailable Gian ECONOMICS ANALYST-PACKAGING SALES REPRESENTATIVE, Eliana Primary Care Unava ilable Gian ECONOMICS ANALYST-PACKAGING SALES REPRESENTATIVE, [facility] Primary Care Unava ilable Rubin REARDON, Stanfrodrius Arnold Attending Unavailable Rubin REARDON, Stanfordrius Arnold Attending Unavailable Gian ECONOMICS ANALYST-PACKAGING SALES REPRESENTATIVE, [facility] Primary Care Unava ilable Rubin REARDON, Andrius Arnold Attending Unavailable Gian ECONOMICS ANALYST-PACKAGING SALES REPRESENTATIVE, [facility] Primary Care Unava ilable Rubin REARDON, Andrius Arnold Attending Unavailable Gian ECONOMICS ANALYST-[facility], [facility] Primary Care Unava ilable Gian ECONOMICS ANALYST-[facility], [facility] Primary Care Unava ilable Rubin REARDON, Stanfordrius Arnold Attending Unavailable Mickie REARDONRob Attending Unavailable Gian ECONOMICS ANALYST-PACKAGING SALES REPRESENTATIVE, Eliana L Primary Care Unava ilable Gian ECONOMICS ANALYST-RAMSEY, Eliana L Primary Care Unava Wesly Lund Attending Unavailable CANDIDO ALEGRE Admitting Unavailable CANDIDO ALEGRE Attending Unavailable LUIS MIRANDA Referring Unavailable GIAN, ELIANA L Primary Care Unavailable NEVINBLU CUETO S Consulting Unavailable Gian ECONOMICS ANALYST.PACKAGING SALES REPRESENTATIVE, Eliana L Primary Care Provider GIAN, ELIANA Palomo Primary Care Unavailable JACOBSON, R Referring Unavailable GIAN, ELIANA L Primary Care Unavailable JACOBSON, R Referring Unavailable GIAN, ELIANA L Primary Care Unavailable KATHY BRAVO Attending Unavailable GIAN, ELIANA L Primary Care Unavailable JACOBSON, R Referring Unavailable GIAN, ELIANA L Primary Care Unavailable JACOBSON, R Referring Unavailable GIAN, ELIANA L Primary Care Unavailable KATHY BRAVO Attending Unavailable GINA, ELIANA L Primary Care Unavailable JACOBSON, R Attending Unavailable GIAN, ELIANA L Primary Care Unavailable KATHY BRAVO Attending Unavailable GIAN, ELIANA L Primary Care Unavailable JACOBSON, R Referring Unavailable GIAN, ELIANA L Primary Care Unavailable JACOBSON, R Referring Unavailable JHONATAN SUAREZ Attending Unavaila ble GIAN, ELIANA L Primary Care Unavailable KATHY BRAVO Attending Unavailable JACOBSON, R Attending Unavailable JACOBSON, R Admitting Unavailable GIAN, ELIANA L Primary Care Unavailable GERMÁN, MODESTO Referring Unavailable JACOBSON, R Attending Unavailable GIAN, ELIANA L Primary Care Unavailable GIAN, ELIANA L Primary Care Unavailable GIAN, ELIANA L Primary Care Unavailable KATHY BRAVO Attending Unavailable GIAN, ELIANA L Primary Care Unavailable GERMÁN, MODESTO Referring Unavailable KATHY BRAVO Attending Unavailable GIAN, ELIANA L Primary Care Unavailable JACOBSON, R Referring Unavailable REMY FERGUSON Attending Unavailabl e GIAN, ELIANA L Primary Care Unavailable JACOBSON, R Referring Unavailable DIANA HERNÁNDEZ Attending Unavailable GIAN, ELIANA L Primary Care Unavailable GIAN, ELIANA L Referring Unavailable FARIDA GIBBONS Attending Unavailable GIAN, ELIANA L Primary Care Unavailable GIAN, ELIANA L Primary Care Unavailable DMITRY TIERNEY Attending Unavailable GIAN, ELIANA L Primary Care Unavailable GIAN, ELIANA L Primary Care Unavailable JOYCELYN SMITH Attending Unavailable ROHIT MILLER Attending Unavailable GIAN, ELIANA L Primary Care Unavailable GIAN, ELIANA L Primary Care Unavailable FAUSTO, DARIUSZ Attending Unavailable GIAN, ELIANA L Primary Care Unavailable GIAN, ELIANA L Referring Unavailable GIAN, ELIANA L Primary Care Unavailable GIAN, ELIANA L Referring Unavailable GIAN, ELIANA L Primary Care Unavailable GIAN, ELIANA L Referring Unavailable GIAN, ELIANA L Primary Care Unavailable GIAN, ELIANA L Referring Unavailable PARSELL, MARILYN W Referring Unavailable GIAN, ELIANA L Primary Care Unavailable DORTOMASA, ANN D Referring Unavailable GIAN, ELIANA L Primary Care Unavailable GIAN, ELIANA L Primary Care Unavailable GIAN, ELIANA L Referring Unavailable IACOB, IRVIN Attending Unavailable SHAHNAZ TOSCANO Consulting Unavailable IACOB, IRVIN Admitting Unavailable GIAN, ELIANA L Primary Care Unavailable CINTRA, DMITRY G Attending Unavailable GIAN, ELIANA L Primary Care Unavailable GIAN, ELIANA L Primary Care Unavailable JOYCELYN SMITH Attending Unavailable GIAN, ELIANA L Primary Care Unavailable GIAN, ELIANA L Primary Care Unavailable Unavailable Primary Care Provider UnavailANA LAURA Tsang Attending Unavailable Allergies Allergy Classification Reported Allergen(s) Allergy Type Date of Onset Reaction(s) Facility Acetaminophen / Codeine (2 sources) Acetaminophen / Codeine Drug Allergy 4 Hives [facility] Cat Hair Extract (2 sources) Cat Hair Extract Drug Allergy 0 [facility] Work Phone: NSAIDs (2 sources) Ibuprofen Drug Allergy 4 Diarrhea [facility] Ondansetron (2 sources) Ondansetron Drug Allergy 9 Anaphylaxis [facility] Opioid Agonists (2 sources) Codeine Drug Allergy 8 Hives, Nausea And Vomiting [facility] Work Phone: (20 sources) Cat Hair Extract Drug Allergy 0 [facility] Work Phone: (20 sources) Codeine; Translations: [CODEINE] Drug Allergy 8 Hives, Nausea And Vomiting, Other [facility] Work Phone: (20 sources) Ondansetron; Translations: [ONDANSETRON HCL] Drug Allergy 9 Nausea Only, Anaphylaxis [facility] (20 sources) Acetaminophen / Codeine; Translations: [ACETAMINOPHEN-CO DEINE] Drug Allergy 4 Hives, Other (See Comments) [facility] (20 sources) Ibuprofen; Translations: [IBUPROFEN] Drug Allergy 4 Diarrhea, Other (See Comments) [facility] Rep[facility] (20 sources) Ondansetron; Translations: [ONDANSETRON] Drug Allergy 1 [facility] Repository (1 source) Cat; Translations: [...] 1 tablet by mouth once daily amLODIPine (Norvasc) 2.5 MG tablet Take 2.5 mg by mouth Daily 02/09/2025 Active amoxicillin 875 mg / clavulanate 125 mg oral tablet (4 sources) Penicillin-class Antibacterial Start: 05-27-2025 End: 06-04-2025 take 1 tablet by mouth every twelve [...] tablet by mouth once daily. 01/03/2021 Active take 1 tablet by mouth in the mo rning atorvastatin (Lipitor) 20 MG tablet Take 20 mg by mouth in the morning. Active azelastine hydrochloride 0.137 mg/actuat metered dose nasal spray (20 sources) Histamine-1 Receptor Antagonist take 1 spray(s) nasal route twice daily azelastine 0.1% nasal spray Use 1 [place] in each nostril two times a day. [...] 1 capsule by mouth daily 0 Active B Complex-C (b complex-vitam in c) tablet (1 source) take 1 tablet by rhianna th in the morning B Complex-C (b complex-vitamin c) tablet Take 1 tablet by mouth in the morning. Active B-complex with vitamin C (ALLBEE WITH [...] by mouth in the morning. 0 Active baclofen 10 mg oral tablet (1 source) gamma-Aminobutyric Acid-ergic Agonist Start: 07-09-2025 baclofen (Lioresal) 10 MG tablet 07/09/2025 Active bisacodyl 10 mg rectal suppository (20 sources) Stimulant Laxative Start: 09-04-2024 bisacodyl (DULCOLAX) 10 mg supp 1 Suppository [...] 06-18-2024 Cholecalcifero l (VITAMIN D3) 1.25 MG (66332 UT) CAPS Indications: Other fatigue Take 1 capsule by mouth once a week Patient takes 1 time weekly on Fridays 12 capsule 3 06/18/2024 Active Start: 11-13-2023 cholecalcifero l, Vitamin D3, (VITAMIN D3) 1,250 mcg (50,000 unit) cap capsule Take 50,000 Units by mouth. 11/13/2023 Active Start: 11-13-2023 Cholecalcifero l (VITAMIN D3) 1.25 MG (23093 UT) CAPS Take 1 capsule by mouth once a week Patient takes 1 time weekly on Fridays 12 capsule 3 11/13/2023 Active take 1 tablet by rhianna th in the morning cholecalciferol (Vitamin D-3) 50 MCG (2000 UT) tablet Take 2,000 Units by mouth in the morning. Active Cholecalciferol (VITAMIN D3) 1.25 MG (11696 UT) CAPS Take by mouth Patient takes 1 time weekly on Fridays 0 Active clonazePAM 0.5 mg oral tablet (20 sources) Benzodiazepine Start: 05-30-2025 take 1 dose by mouth once 1 mg, Oral, Once, 1 dose, On Sun05/30/25 at 2330 Start: 05-30-2025 take 1 dose [...] mg total) by mouth nightly. 05/15/2024 Active clonazePAM (KLON OPIN) 1 MG tablet Take 0.5 mg in the morning and 2 mg at bedtime as needed. Active take 1 tablet by rhianna th every twelve hours as needed clonazePAM (KLONOPIN) 0.5 mg tablet Take 0.5 mg by mouth two times a day as needed. Active clonazePAM (KLON OPIN) 1 MG tablet 2 tablets at bedtime. Active cyclobenzaprine hydrochloride 5 mg oral tablet (2 sources) Muscle Relaxant Start: 12-05-2024 End: 12-15-2024 take 1 tablet by mouth twice daily as needed for muscle spasms cyclobenzaprine (FLEXERIL) 5 MG tablet Take 1 tablet by mouth 2 times daily as needed for Muscle spasms 10 tablet 12/05/2024 12/15/2024 Active cyclobenzaprine (Flexeril) 10 MG tablet Take 10 mg by mouth in the morning and 10 mg at noon and 10 mg in the evening. Active dicyclomine hydrochloride 20 mg oral tablet [...] every week vitamin D (ERGOCALCIFEROL) 1.25 MG (88163 UT) CAPS capsule Take 1 capsule by [...] Peroxisome Proliferator Receptor alpha Agonist Start: 06-28-2022 fenofibrate (Tricor) 54 MG tablet Take 54 mg by mouth 12/10/2024 Active fexofenadine hydrochloride 180 mg oral tablet [...] Start: 01-17-2018 take 1 puff(s) by mo uth once daily fluticasone furoate-vilanterol (BREO ELLIPTA) 200-25 MCG/ACT AEPB inhaler Take 1 puff by mouth daily 01/17/2018 Active Start: 01-17-2018 fluticasone fu roate-vilanterol (BREO ELLIPTA) 200-25 MCG/ACT AEPB inhaler 01/17/2018 Active Start: 01-17-2018 take 1 puff(s) by in halation once daily fluticasone-vilanterol (BREO ELLIPTA) 100-25 MCG/INH AEPB inhaler 1 puffs, Inhale, Daily, # 30 EA, 11 Refill(s), Pharmacy: [place] [id number] 01/17/2018 Active fluticasone-jose nterol (BREO ELLIPTA) 200-25 [...] for injection by adding 1 mL of slurry tank operator-supplied sterile diluent or sterile water for injection [...] pen injector (20 sources) Insulin Analog Start: 08-03-2025 Lantus SoloSta r 100 UNIT/ML pen Inject 25 Units under the skin in the morning. 08/03/2025 Active Start: 09-04-2024 End: 12-03-2024 inject 16 [IU] [...] mg, IntraMU SCular, ONCE, 1 dose, On 09/05/24 at 2145, Do not administer for more [...] 03-17-2024 ketorolac (TORADOL) injectio n 30 mg levoFLOXacin 500 mg oral tablet (2 sources) Quinolone Antimicrobial Start: 07-31-2025 End: 08-10-2025 levoFLOXacin (Levaquin) 500 MG tablet 07/31/2025 Active lidocaine 0.04 mg/mg medicated patch (4 sources) Antiarrhythmic, Amide Local Anesthetic Start: 12-05-2024 End: 01-04-2025 apply 1 dose transdermal route once daily lidocaine 4 % external patch Place 1 patch onto the skin daily 30 patch 12/05/2024 01/04/2025 Active lipase/protease/am ylase (CREON ORAL) (13 sources) lipase/protease/ a mylase (CREON ORAL) Take by mouth. Suspended lipase/protease/ [...] skin every 30 (thirty) days. 04/28/2024 Active mepolizumab (NUC ALA) 100 MG SOLR injection Inject 1 mL into the skin every 30 days Active inject 100 mg by sub cutaneous injection every month mepolizumab injection 100 mg (NUCALA) Inject 100 mg subcutaneously once every month. Active mepolizumab (NUC ALA SUBQ) Inject under [...] at 1415 mirtazapine 7.5 mg oral tablet (2 sources) Start: 06-03-2025 take 1 tablet by mouth once daily mirtazapine (REMERON) 7.5 MG tablet Take 1 tablet by mouth nightly 30 tablet 3 06/03/2025 Active montelukast 10 mg oral tablet (20 sources) Leukotriene Receptor Antagonist Start: 05-24-2023 take 1 tablet by mouth once daily montelukast (Singulair) 10 MG tablet 1 tablet Orally Once a day for 30 day(s) 06/18/2024 Active naloxone hydrochloride 40 mg/ml nasal [...] 1 capsule by mouth once daily omeprazole (PriLOSEC) [address] capsule 1 capsule 30 minutes before morning meal Orally Once a day 11/23/2024 Active oseltamivir 75 mg oral capsule (2 [...] tablet 2 09/04/2024 Active polyethylene glycol 3350 26998 mg powder for oral solution (20 sources) [...] 1 capsule by mouth once daily tamsulosin (Flomax) 0.4 MG 24 hr capsule Take 0.4 mg by mouth Daily 08/20/2024 Active 24 hr traMADol hydrochloride 100 mg extended release oral tablet (20 sources) Opioid Agonist Start: 08-05-2025 traMADol ER (Ultram-ER) 100 MG 24 hr tablet 08/05/2025 Active Start: 05-26-2025 take 100 mg by mouth [...] (TR AMADOL ORAL) Take by mouth. Active zinc gluconate 30 mg oral ta blet (20 sources) End: 05-27-2025 Zinc Gluconate 30 mg tab [place] e by mouth. Active take 1 tablet by [...] mg from all sources in 24 hours. [id number] 200 actuat albuterol 0.09 mg/actuat metered dose [...] PRN, # 1 EA, 0 Refill(s), Pharmacy: [facility] 1 each 03/25/2024 Active Start: 02-06-2024 take 2 puff(s) by in halation every six hours as needed albuterol sulfate (PROAIR RESPICLICK) 108 (90 Base) MCG/ACT aerosol powder inhalation Indications: Asthma, unspecified asthma severity, unspecified whether complicated, unspecified whether persistent 2 puffs, Inhale, q6hr, PRN, # 1 EA, 0 Refill(s), Pharmacy: [facility] 1 each 0 02/06/2024 Active Start: [...] # 1 EA, 0 Refill(s), Pharmacy: [facility] [place] [id number] Inhaler 0 12/13/2018 Active albuterol 0.833 mg/ml [...] by mouth daily at bedtime. 01/23/2018 Active take 1 tablet by rhianna th at bedtime amitriptyline (Elavil) 25 MG tablet Take 25 mg by mouth at bedtime Active AMLODIPINE BESYLATE, BULK, M ISC (12 sources) AMLODIPINE BESYL ATE, BULK, MISC by miscellaneous route. Suspended AMLODIPINE BESYL ATE, BULK, MISC by miscellaneous route. Active AMLODIPINE BESYL ATE, BULK, MISC by miscellaneous route. 0 Active amylase 84429 unt / lipase 5000 unt / protease 65937 unt delayed release oral capsule (20 sources) Start: 05-30-2025 take 37723 [IU] by mouth three times daily at [...] Active Start: 02-08-2024 [address] [facility] once daily [id number] (CREON) 50161-598688 units CPEP delayed release capsule Indications: Chronic pancreatitis, unspecified pancreatitis type (HCC) , Medication refill [facility]on 90669 units oral delayed release capsule: TAKE 2 CAPSULES WITH MEALS (3 TIMES A DAY) AND 1 CAPSULE WITH SNACKS (1 DAILY). 200 capsule 1 02/08/2024 Active Start: 01-03-2024 take [address] [facility] once daily rlgbiy-ozhhymes-riixtbc (CREON) 40676-305816 units CPEP delayed release capsule Indications: Chronic pancreatitis, unspecified pancreatitis type (HCC) , Medication refill [facility] 71442 units oral delayed release capsule: TAKE 2 CAPSULES WITH MEALS (3 TIMES A DAY) AND 1 CAPSULE WITH SNACKS (1 DAILY). 180 capsule 1 01/03/2024 Active Start: 11-12-2023 take [address] [facility] once daily rbhjcs-uorhzvza-mvpgdkn (CREON) 32564-876840 units CPEP delayed release capsule Indications: Chronic pancreatitis, unspecified pancreatitis type (HCC) , Medication refill Creon 49980 units oral delayed release capsule: TAKE 2 CAPSULES WITH MEALS (3 TIMES A DAY) AND 1 CAPSULE WITH SNACKS (1 DAILY). 180 capsule 0 11/12/2023 Active Start: 05-24-20[address] [facility] three times daily at mealtime xnyqkx-mfooqvfs-lywtypz (CREON) 47624-435954 units CPEP delayed release capsule Take 1 capsule by mouth 3 times daily (with meals) 180 capsule 0 05/24/2023 Active aspirin 81 mg chewable tablet (1 source) Platelet Aggregation Inhibitor, Nonsteroidal Anti-inflammatory Drug Start: 03-17-2024 End: 03-17-2024 aspirin chewable tablet 324 mg azithromycin (ZITHROMAX) 500 mg in sodium chloride 0.9 % 250 mL IVPB ([id number]) (1 source) Start: 05-25-2025 End: 05-26-2025 500 mg, IntraVENous, ONCE, 1 dose, On Sun05/25/25 at 2330, Antimicrobial Indications: Pneumonia (CAP), Use 20mm (Blue) [id number] Adapter Preparation instructions: Attach medication vial to one 20mm (Blue) [id number] adapter. Selvin fluid bag with adapter, mix, [...] intravenously once 1,000 mg, IntraVENous, ONCE, On 05/25/25 at 2330, For 1 dose, Administer as [...] IntraVENous, EVERY 6 HOURS PRN, Starting on 05/26/25 at 0119, Until Discontinued, Heartburn, IV Push: Max 10 mg over 1-2 minutes. Start: 05-25-2025 End: 05-25-2025 10 mg, IntraVENous, ONCE, 1 dose, On 05/25/25 at 1745, IV Push: Max 10 mg [...] 4 mg, IntraVENous, ONCE, 1 dose, On 05/25/25 at 2000, If oral and IV narcotics [...] (19 sources) NON FORMULARY Me d Name: Breo Elipta Suspended NON FORMULARY Me d Name: X Melodie Suspended NON FORMULARY Me d Name: Breo Elipta Active NON FORMULARY Me d Name: X Melodie Active NON FORMULARY Me d Name: X Melodei 0 Active NON FORMULARY Me d Name: Breo Elipta 0 Active 2 ml orphenadrine citrate 30 [...] Vashti 06/18/25 at 1545, For 1 dose Start: 05-26-2025 [...] oral capsule (12 sources) Tetracycline-class Antimicrobial tetracycline (ACHROMYCIN,SUMYC IN) 250 mg capsule Take 1 capsule (250 mg total) by mouth in the morning and 1 capsule (250 mg total) at noon and 1 capsule (250 mg total) in the evening and 1 capsule (250 mg total) before bedtime. Suspended vitamin B and C (TOTAL B-C) tablet [...] 1 capsule by mo uth once daily ziprasidone (GEODON) 40 MG capsule Take 1 capsule by mouth nightly 0 2018 Active take 1 capsule by mo uth in the morning, then take 1 capsule by mouth at mealtime ziprasidone (GEODON) 20 mg capsule Take 1 capsule (20 mg total) by mouth in the morning and 1 capsule (20 mg total) in the evening. Take with meals. Suspended ziprasidone (ELE ANN DON) injection Inject 1 mL (20 mg total) into the appropriate muscle once. Suspended Problems Active Problems Problem Classification Problem Date Documented Da te Episodic/Chronic Abdominal pain (20 sources) Epigastric pain; Translations: [Epigastric pain] Onset: 08-05-2024 Episodic Acute and unspecified renal failure (2 sources) Acute renal failure syndrome; Translations: [Acute kidney failure, unspecified] Onset: 5 05-25-2025 Episodic Anxiety disorders (20 sources) Posttraumatic stress disorder; Translations: [Post-traumatic stress disorder, unspecified] Onset: 3 Resolved: 3 05-18-2023 Chronic Asthma (20 sources) Severe persistent asthma; Translations: [Severe persistent asthma, uncomplicated] Onset: 9 05-18-2023 Chronic Cancer of other GI organs; peritoneum (5 sources) History of malignant neoplasm of pancreas; Translations: [Personal history of malignant neoplasm of pancreas] Onset: 5 05-26-2025 Episodic Complications of surgical procedures or medical care (1 source) Postprocedural hypoinsulinemia; 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)] Onset: 5 Chronic Deficiency and other anemia (2 sources) Anemia; Translations: [Anemia, unspecified] 11-30-2023 Episodic Diabetes mellitus without complication (20 sources) Type 2 diabetes mellitus without complication; Translations: [Type 2 diabetes mellitus without complications] Onset: 2 Resolved: 5 01-11-2024 Chronic Diabetes mellitus without complication (20 sources) Hyperglycemia; Translations: [Hyperglycemia, unspecified] Onset: 9 Resolved: 3 05-18-2023 Episodic Diseases of white blood cells (1 source) Elevated white blood cell count, unspecified; Translations: [Elevated white blood cell count, unspecified] Onset: 5 Chronic Disorders of lipid metabolism (20 sources) Hypertriglyceridemia; [...] 04-26-2024 Episodic Genitourinary symptoms and ill-defined conditions (7 sources) Dysuria; Translations: [Dysuria] Onset: 5 11-27-2024 Episodic Hyperplasia of prostate (20 sources) Large prostate ; Translations: [Benign prostatic hyperplasia without lower urinary tract symptoms] Onset: 0 Resolved: 3 05-18-2023 Chronic Malaise and fatigue (2 sources) Fatigue; Translations: [Other fatigue] 11-30-2023 Episodic Mood disorders (20 sources) Bipolar [...] Translations: [Polyp of colon] 02-04-2018 Episodic Other and unspecified benign neoplasm (1 source) Melanocytic nevus of trunk; Translations: [Melanocytic nevi of trunk] 08-07-2025 Episodic Other and unspecified benign neoplasm (1 source) Angiofibroma; 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, unspecified site] 08-07-2025 Episodic Other diseases of kidney and ureters [...] Translations: [Fatty liver] Onset: 4 Chronic Other lower respiratory disease (1 source) Rib pain; Translations: [Pleurodynia] 12-05-2024 Episodic Other nervous system disorders (1 source) Chronic pain syndrome; Translations: [Chronic pain syndrome] 11-30-2023 Chronic Other nutritional; endocrine; and metabolic disorders (20 sources) Obese class I; Translations: [Obesity, Class I, BMI 30-34.9] Onset: 4 08-30-2024 Chronic Other skin disorders (1 source) Sebaceous gland hypertrophy; Translations: [Other specified follicular disorders] 08-07-2025 Episodic Pancreatic disorders (not diabetes) (20 sources) Chronic pancreatitis; Translations: [Other chronic pancreatitis] Onset: 4 08-05-2024 Chronic Pneumonia (except that caused by tuberculosis or sexually transmitted disease) (9 sources) Right lower zone pneumonia; Translations: [Pneumonia, unspecified organism] Onset: 5 05-25-2025 Episodic Residual codes; unclassified (20 sources) History of pancreatectomy; 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] Onset: 4 08-30-2024 Chronic Residual codes; unclassified (5 sources) History of Whipple procedure; 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] Onset: 5 05-26-2025 Chronic Residual codes; unclassified (1 source) Acquired total absence of pancreas; 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)] Onset: 5 Chronic Residual codes; unclassified (20 sources) History of excision of intestinal structure; Translations: [Acquired absence of other specified parts of digestive tract] Onset: 4 05-18-2023 Episodic Residual codes; unclassified (1 source) Pain, unspecified; Translations: [Pain, unspecified] Onset: 4 Episodic Residual codes; unclassified (1 source) Family history of Dong esophagus; Translations: [Family history of other diseases of the digestive system] 01-23-2025 Episodic Residual codes; unclassified (1 source) Other general symptoms and signs; Translations: [Other general symptoms and signs] Onset: 5 Episodic Residual codes; unclassified (1 source) Acquired absence of spleen; Translations: [Acquired absence of spleen] Onset: 5 Episodic Spondylosis; intervertebral disc disorders; other back problems (20 sources) Spondylosis without myelopathy or radiculopathy, thoracic region; Translations: [Postlaminectomy syndrome, not elsewhere classified] Onset: 3 08-22-2024 Chronic Spondylosis; intervertebral disc disorders; other back problems (20 sources) Low back pain; Translations: [Low back pain] Onset: 3 05-29-2023 Episodic Suicide and intentional self-inflicted injury (2 sources) [...] with polyangiitis (EGPA) (HCC) (HCC)] Onset: 4 Past or Other Problems Problem [...] Resolved: 09-04-2024 09-04-2024 Episodic Diverticulosis and diverticulitis (20 sources) Diverticular [...] other respiratory manifestations] Onset: 12-24-2024 12-24-2024 Episodic Neoplasms of unspecified nature or uncertain behavior (20 sources) Benign neoplasm of pancreas; 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] Onset: 08-28-2024 Resolved: 09-04-2024 07-22-2024 Episodic Nonspecific chest pain (7 sources) Chest pain; Translations: [Chest pain, unspecified] Onset: 08-11-2024 07-05-2023 Episodic Other aftercare (1 source) snf (current) use of opiate analgesic; Translations: [snf (current) use of opiate analgesic] Onset: 12-25-2023 Episodic Other aftercare (20 sources) Insulin dose changed; 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] Onset: 08-30-2024 08-30-2024 Episodic Other aftercare (12 sources) Admission statuses; Translations: [snf (current) use of opiate analgesic] Onset: 12-24-2023 [...] [History of bowel resection] Onset: 08-22-2024 Episodic Sprains and strains (20 sources) Low back strain; Translations: [Strain of muscle, fascia and tendon of lower back, initial encounter] Onset: 05-29-2023 05-29-2023 Episodic Superficial injury; contusion (10 sources) Contusion of left chest wall; Translations: [Contusion of left front wall of thorax, initial encounter] Onset: 08-08-2024 08-08-2024 Episodic Unclassified (20 sources) Onset: 06-18-2024 06-18-2024 Results Test Name Value Interpretation Reference Range Facility CNPNon 08-03-2025 CNPN Normal [facility] S.pneumo Ab 23 Seroon 2024 S.pneum Interp See Note Normal [facility] Comment on above: Result Comment: (NOT E) INTERPRETIVE INFORMATION: Streptococcus pneumoniae Antibodies, IgG A pre- and postvaccination comparison is required to adequately assess the humoral immune response to the pure polysaccharide Pneumovax 23 (PNX) and/or the protein conjugated Prevnar 7 (P7), Prevnar 13 (P13), Prevnar 20 (P20), and Vaxneuvance (V15) Streptococcus pneumoniae vaccines. Prevaccination samples should be collected prior to vaccine administration. Postvaccination samples should be obtained at least 4 weeks after immunization. Testing of postvaccination samples alone will provide only general immune status of the individual to various pneumococcal serotypes. In the case of pure polysaccharide vaccine, indication of immune system competence is further delineated as an adequate response to at least 50 percent of the serotypes in the vaccine challenge for those 2-5 years of age and to at least 70 percent of the serotypes in the vaccine challenge for those 6-65 years of age. Individual immune response may vary based on age, past exposure, immunocompetence, and pneumococcal serotype. Responder Status Antibody Ratio Nonresponder ........... Less than twofold increase and postvaccination concentration less than 1.3 ug/mL Good responder ......... At least a twofold increase and/or a postvaccination concentration greater than or equal to 1.3 ug/mL A response to 50-70 percent or more of the serotypes in the vaccine challenge is considered a normal humoral response.(Divya, 2014) Antibody concentration greater than 1.0-1.3 ug/mL is generally considered long-term protection.(Divya, 2015) References: 1. Divya DOMINGUEZ, Jese HAMILTON, Ron X, et al. Multilaboratory assessment of threshold versus fold-change algorithms for minimizing analytical variability in multiplexed pneumococcal IgG measurements. Clin Vaccine Immunol. 2014;21(7):982-988. 2. Divya DOMINGUEZ, Curtis PAT. Use and clinical interpretation of pneumococcal antibody measurements in the evaluation of humoral immune function. Clin Vaccine Immunol. 2015;22(2):148-152. This test was developed and its performance characteristics determined by [facility]. It has not been cleared or approved by the U.S. Food and Drug Administration. This test was performed in a CLIA-certified laboratory and is intended for clinical purposes. Performed By: [facility] [address] [place] [id number] Alterations Tailor: Ernie Orellana MD, PhD CLIA Number: [id number] Performed By: #### C OVRB #### [address] [place] [address] Sorter Lumber Straightener: Ziggy Hilario MD S.pneum type 1,IgG 2.91 ug/mL [facility] Comment on above: Performed By: #### C OVRB #### [address] [place] [address] Sorter Lumber Straightener: Ziggy Hilario MD S.pneum type 10A,IgG 1.97 ug/mL [facility] Comment on above: Performed By: #### C OVRB #### [facility] [address] [place] [address] [place] [address] Sorter Lumber Straightener: Ziggy Hilario MD S.pneum type 11A,IgG 1.71 ug/mL [facility] Comment on above: Performed By: #### C OVRB #### [facility] [address] [place] [address] [place] [address] Sorter Lumber Straightener: Ziggy Hilario MD S.pneum type 12F,IgG >20.50 [facility] Comment on above: Performed By: #### C OVRB #### [facility] [address] [place], [place] [id number] Sorter Lumber Straightener: Ziggy Hilario MD S.pneum type 14,IgG 14.85 ug/mL [facility] Comment on above: Performed By: #### C OVRB #### [facility] [address] [place], [place] [id number] Sorter Lumber Straightener: Ziggy Hilario MD S.pneum type 15B,IgG >27.72 [facility] Comment on above: Performed By: #### C OVRB #### [facility] [address] [place] [address] [place], [place] [id number] Sorter Lumber Straightener: Ziggy Hilario MD S.pneum type 17F,IgG 1.11 ug/mL [facility] Comment on above: Performed By: #### C OVRB #### [facility] [address] [place], [place] [id number] Sorter Lumber Straightener: Ziggy Hilario MD S.pneum type 18C,IgG 5.54 ug/mL [facility] Comment on above: Performed By: #### C OVRB #### [facility] [address] [place] [address] [place], [place] [id number] Sorter Lumber Straightener: Ziggy Hilario MD S.pneum type 19A,IgG 8.30 ug/mL [facility] Comment on above: Performed By: #### C OVRB #### [facility] [address] [place], [place] [id number] Sorter Lumber Straightener: Ziggy Hilario MD S.pneum type 19F,IgG 11.81 ug/mL [facility] Comment on above: Performed By: #### C OVRB #### [facility] [address] [place], [place] [id number] Sorter Lumber Straightener: Ziggy Hilario MD S.pneum type 2,IgG 1.07 ug/mL [facility] Comment on above: Performed By: #### C OVRB #### [facility] [address] [place], [place] [id number] Sorter Lumber Straightener: Ziggy Hilario MD S.pneum type 20,IgG 1.92 ug/mL [facility] Comment on above: Performed By: #### C OVRB #### [facility] [address] [place], [place] [id number] Sorter Lumber Straightener: Ziggy Hilario MD S.pneum type 22F,IgG 0.49 ug/mL [facility] Comment on above: Performed By: #### C OVRB #### [facility] [address] [place], [place] [id number] Sorter Lumber Straightener: Zigyg Hilario MD S.pneum type 23F,IgG 1.03 ug/mL [facility] Comment on above: Performed By: #### C OVRB #### [facility] [address] [place], [place] [id number] Sorter Lumber Straightener: Ziggy Hilario MD S.pneum type 3,IgG 1.26 ug/mL [facility] Comment on above: Performed By: #### C OVRB #### [facility] [address] [place], [place] [id number] Sorter Lumber Straightener: Ziggy Hilario MD S.pneum type 33F,IgG 4.32 ug/mL [facility] Comment on above: Performed By: #### C OVRB #### [facility] [address] [place], [place] [id number] Sorter Lumber Straightener: Ziggy Hilario MD S.pneum type 4,IgG 2.33 ug/mL [facility] Comment on above: Performed By: #### C OVRB #### [facility] [address] [place], [place] [id number] Sorter Lumber Straightener: Ziggy Hilario MD S.pneum type 5,IgG 5.68 ug/mL [facility] Comment on above: Performed By: #### C OVRB #### [facility] [address] [place], [place] [id number] Sorter Lumber Straightener: Ziggy Hilario MD S.pneum type 6B,IgG 0.94 ug/mL [facility] Comment on above: Performed By: #### C OVRB #### [facility] [address] [place], [place] [id number] Sorter Lumber Straightener: Ziggy Hilario MD S.pneum type 7F,IgG 3.73 ug/mL [facility] Comment on above: Performed By: #### C OVRB #### [address] [place], [place] [id number] Sorter Lumber Straightener: Ziggy Hilario MD S.pneum type 8,IgG 0.70 ug/mL [facility] Comment on above: Performed By: #### C OVRB #### [facility] [address] [place] [address] [place], [place] 7394583 Sorter Lumber Straightener: Ziggy Hilario MD S.pneum type 9N,IgG 2.10 ug/mL [facility] Comment on above: Performed By: #### C OVRB #### [facility] [address] [place], [place] [id number] Sorter Lumber Straightener: Ziggy Hilario MD S.pneum type 9V,IgG 3.28 ug/mL [facility] Comment on above: Performed By: #### C OVRB #### [facility] [address] [place], [place] [id number] Sorter Lumber Straightener: Ziggy Hilario MD Cult,Urineon 08-01-2025 Cult,Urine Specimen Description .CLEAN CATCH URINE Special Requests Site: Urine Culture NO GROWTH Report Status FINAL 08/01/2025 [facility] Comment on above: Performed By: #### C P, CDP, SALI #### [facility] [address] [place] [address] Sorter Lumber Straightener: Ziggy Hilario MD C-Reactive Proteinon CRP High sensitivity method [Mass/Vol] mg/L 0.0 - 5.0 mg/L [facility] CRP [Mass/Vol] mg/L Normal 0.0-5.0 [facility] Comment on above: Performed By: #### C OVRB #### [facility] [address] [place], [place] [id number] Sorter Lumber Straightener: Ziggy Hilario MD CBC with Auto Differentialon 07-31-2025 Basophils (Bld) [#/Vol] 0.12 10*3/uL [facility] Basophils/100 WBC (Bld) 1 % 0 - 2 % [facility] Eosinophils (Bld) [#/Vol] 0.06 10*3/uL [facility] Eosinophils/100 WBC (Bld) 1 % 1 - 4 % [facility] Erythrocyte distribution width (RBC) [Ratio] 13.2 % 11.8 - 14.4 % [facility] Hematocrit (Bld) [Volume fraction] 40.9 % 40.7 - 50.3 % [facility] Hemoglobin (Bld) [Mass/Vol] 13.0 g/dL 13.0 - 17.0 g/dL [facility] Immature granulocytes (Bld) [#/Vol] 0.06 10*3/uL [facility] Immature granulocytes/100 WBC (Bld) 1 % High 0 [facility] Interpretation and review of laboratory results Abnormal [facility] Lymphocytes/100 WBC (Bld) 23 % Low 24 - 43 % [facility] Lymphocytes/100 WBC (Bld) 2.72 % [facility] MCH (RBC) [Entitic mass] 28.8 pg 25.2 - 33.5 pg [facility] MCHC (RBC) [Mass/Vol] 31.8 g/dL 28.4 - 34.8 g/dL [facility] MCV (RBC) [Entitic vol] 90.5 fL 82.6 - 102.9 fL [facility] Monocytes/100 WBC (Bld) 9 % 3 - 12 % [facility] Monocytes/100 WBC (Bld) 1.06 % [facility] Neutrophils/100 WBC (Bld) 65 % 36 - 65 % [facility] Nucleated RBC/100 WBC (Bld) [Ratio] 0.0 % 0.0 per 100 WBC [facility] Platelet mean volume (Bld) [Entitic vol] 9.0 fL 8.1 - 13.5 fL [facility] Platelets (Bld) [#/Vol] 423 10*3/uL [facility] RBC (Bld) [#/Vol] 4.52 10*6/uL 4.21 - 5.7 7 m/uL [facility] Segmented neutrophils/100 WBC (Bld) 7.80 % [facility] WBC other (Bld) [#/Vol] 11.8 High [facility] CBC with Diffon 07-31-2025 Abs. Basophil 0.12 k/uL Normal 0.00-0.20 [facility] Comment on above: Performed By: #### A SPN23 #### [facility] [address], [place] [id number] Sorter Lumber Straightener: Saw Zhu MD #### SED, CRP, CDP #### [facility] [address] [place] [address] Sorter Lumber Straightener: Ziggy Hilario MD #### IGE, IMMS #### [facility] [address] [place] [address] Sorter Lumber Straightener: Reno Duron MD Abs.Imm.Granulocyte 0.06 k/uL Normal 0.00-0.30 [facility] Comment on above: Performed By: #### A SPN23 #### [facility] [address], [place] [id number] Sorter Lumber Straightener: Saw Zhu MD #### SED, CRP, CDP #### [facility] [address] [place] [address] Dr[place], [place] [id number] Sorter Lumber Straightener: Ziggy Hilario MD #### IGE, IMMS #### [address] [address] Sorter Lumber Straightener: Reno Duron MD Abs.Neutrophil (Seg) 7.80 k/uL Normal 1.50-8.10 [facility] Comment on above: Performed By: #### A SPN23 #### [facility] [address] [place] [address] Sorter Lumber Straightener: Saw Zhu MD #### SED, CRP, CDP #### [address] [place] [id number] Sorter Lumber Straightener: Ziggy Hilario MD #### IGE, IMMS #### [address] [address] Sorter Lumber Straightener: Reno Duron MD Basophils/100 WBC (Bld) 1 % Normal 0-2 [facility] Comment on above: Performed By: #### A SPN23 #### [facility] [address] [place] [address] Sorter Lumber Straightener: Saw Zhu MD #### SED, CRP, CDP #### [address] [place] [id number] Sorter Lumber Straightener: Ziggy Hilario MD #### IGE, IMMS #### [address] [address] Sorter Lumber Straightener: Reno Duron MD Eosinophils (Bld) [#/Vol] 0.06 10*3/uL Normal 0.00-0.44 [facility] Comment on above: Performed By: #### A SPN23 #### [facility] [address] [place] [address] Sorter Lumber Straightener: Saw Zhu MD #### SED, CRP, CDP #### [facility] [address] [place], [place] 359[address]83 Sorter Lumber Straightener: Ziggy Hilaroi MD #### IGE, IMMS #### [address] [address] Sorter Lumber Straightener: Reno Duron MD Eosinophils/100 WBC (Bld) 1 % Normal 1-4 [facility] Comment on above: Performed By: #### A SPN23 #### [facility] [address] [place] [address] Sorter Lumber Straightener: Saw Zhu MD #### SED, CRP, CDP #### [address] [place] [address] Sorter Lumber Straightener: Ziggy Hilario MD #### IGE, IMMS #### [address] [id number] Sorter Lumber Straightener: Reno Duron MD Erythrocyte distribution width (RBC) [Ratio] 13.2 % Normal 11.8-14.4 [facility] Comment on above: Performed By: #### A SPN23 #### [facility] [address] [place] [address] Sorter Lumber Straightener: Saw Zhu MD #### SED, CRP, CDP #### [address] [place], [place] [id number] Sorter Lumber Straightener: Ziggy Hilario MD #### IGE, IMMS #### [facility] [address] [place] [address] Sorter Lumber Straightener: Reno Duron MD Hematocrit (Bld) [Volume fraction] 40.9 % Normal 40.7-50.3 [facility] Comment on above: Performed By: #### A SPN23 #### [facility] [address] [place] [address] Sorter Lumber Straightener: Saw Zhu MD #### SED, CRP, CDP #### [facility] [address] [place], [place] 7102683 Sorter Lumber Straightener: Ziggy Hilario MD #### IGE, IMMS #### [address] [address] Sorter Lumber Straightener: Reno Duron MD Hemoglobin (Bld) [Mass/Vol] 13.0 g/dL Normal 13.0-17.0 [facility] Comment on above: Performed By: #### A SPN23 #### [facility] [address] [place] [address] Sorter Lumber Straightener: Saw Zhu MD #### SED, CRP, CDP #### [address] [place], [place] 0165383 Sorter Lumber Straightener: Ziggy Hilario MD #### IGE, IMMS #### [address] [address] Sorter Lumber Straightener: Reno Duron MD Immature granulocytes/100 WBC (Bld) 1 % High 0 [facility] Comment on above: Performed By: #### A SPN23 #### [facility] [address] [place] [address] Sorter Lumber Straightener: Saw Zhu MD #### SED, CRP, CDP #### [facility] [address] [place] [address] Dr[place], [place] [id number] Sorter Lumber Straightener: Ziggy Hilario MD #### IGE, IMMS #### [address] [address] Sorter Lumber Straightener: Reno Duron MD Lymphocytes (Bld) [#/Vol] 2.72 10*3/uL Normal 1.10-3.70 [facility] Comment on above: Performed By: #### A SPN23 #### [facility] [address] [place] [address] Sorter Lumber Straightener: Saw Zhu MD #### SED, CRP, CDP #### [facility] [address] [place], [place] [id number] Sorter Lumber Straightener: Ziggy Hilario MD #### IGE, IMMS #### [address] [id number] Sorter Lumber Straightener: Reno Duron MD Lymphocytes/100 WBC (Bld) 23 % Low 24-43 [facility] Comment on above: Performed By: #### A SPN23 #### [facility] [address] [place] [address] Sorter Lumber Straightener: Saw Zhu MD #### SED, CRP, CDP #### [address] [place] [address] Sorter Lumber Straightener: Ziggy Hilario MD #### IGE, IMMS #### [address] [address] Sorter Lumber Straightener: Reno Duron MD MCH (RBC) [Entitic mass] 28.8 pg Normal 25.2-33.5 [facility] Comment on above: Performed By: #### A SPN23 #### [facility] [address], [place] [id number] Sorter Lumber Straightener: Saw Zhu MD #### SED, CRP, CDP #### [facility] [address] [place] [address] [place] [id number] Sorter Lumber Straightener: Ziggy Hilario MD #### IGE, IMMS #### [facility] [address] [place] [id number] Sorter Lumber Straightener: Reno Duron MD MCHC (RBC) [Mass/Vol] 31.8 g/dL Normal 28.4-34.8 [facility] Comment on above: Performed By: #### A SPN23 #### [facility] [address] [place] [address] Sorter Lumber Straightener: Saw Zhu MD #### SED, CRP, CDP #### [address] [place] [address] Sorter Lumber Straightener: Ziggy Hilario MD #### IGE, IMMS #### [address] [address] Sorter Lumber Straightener: Reno Duron MD MCV (RBC) [Entitic vol] 90.5 fL Normal 82.6-102.9 [facility] Comment on above: Performed By: #### A SPN23 #### [facility] [address] [place] [address] Sorter Lumber Straightener: Saw Zhu MD #### SED, CRP, CDP #### [address] [place] [address] Sorter Lumber Straightener: Ziggy Hilario MD #### IGE, IMMS #### [address] [address] Sorter Lumber Straightener: Reno Duron MD Monocytes (Bld) [#/Vol] 1.06 10*3/uL Normal 0.10-1.20 [facility] Comment on above: Performed By: #### A SPN23 #### [facility] [address] [place] [address] Sorter Lumber Straightener: Saw Zhu MD #### SED, CRP, CDP #### [address] [place] [address] Sorter Lumber Straightener: Ziggy Hilario MD #### IGE, IMMS #### [address] [address] Sorter Lumber Straightener: Reno Duron MD Monocytes/100 WBC (Bld) 9 % Normal 3-12 [facility] Comment on above: Performed By: #### A SPN23 #### [facility] [address] [place], [place] [id number] Sorter Lumber Straightener: Saw Zhu MD #### SED, CRP, CDP #### [facility] [address] [place] [address] [place]. [place], [place] [id number] Sorter Lumber Straightener: Ziggy Hilario MD #### IGE, IMMS #### [address] [id number] Sorter Lumber Straightener: Reno Duron MD Neutrophil (Seg) 65 % Normal 36-65 [facility] Comment on above: Performed By: #### A SPN23 #### [facility] [address] [place], [place] [id number] Sorter Lumber Straightener: Saw Zhu MD #### SED, CRP, CDP #### [address] [place] [address] Sorter Lumber Straightener: Ziggy Hilario MD #### IGE, IMMS #### [address] [id number] Sorter Lumber Straightener: Reno Duron MD NRBC Automated 0.0 per 100 WBC Normal 0.0 [facility] Comment on above: Performed By: #### A SPN23 #### [facility] [address] [place], [place] [id number] Sorter Lumber Straightener: Saw Zhu MD #### SED, CRP, CDP #### [address] [place], [place] 1504583 Sorter Lumber Straightener: Ziggy Hilario MD #### IGE, IMMS #### [address] [id number] Sorter Lumber Straightener: Reno Duron MD Platelet mean volume (Bld) [Entitic vol] 9.0 fL Normal 8.1-13.5 [facility] Comment on above: Performed By: #### A SPN23 #### [facility] [address] [place] [address] Sorter Lumber Straightener: Saw Zhu MD #### SED, CRP, CDP #### [facility] [address] [place], [place] [id number] Sorter Lumber Straightener: Ziggy Hilario MD #### IGE, IMMS #### [address] [address] Sorter Lumber Straightener: Reno Duron MD Platelets (Bld) [#/Vol] 423 10*3/uL Normal 138-453 [facility] Comment on above: Performed By: #### A SPN23 #### [facility] [address] [place] [address] Sorter Lumber Straightener: Saw Zhu MD #### SED, CRP, CDP #### [address] [place], [place] [id number] Sorter Lumber Straightener: Ziggy Hilario MD #### IGE, IMMS #### [address] [address] Sorter Lumber Straightener: Reno Duron MD RBC (Bld) [#/Vol] 4.52 10*6/uL Normal 4.21-5.77 [facility] Comment on above: Performed By: #### A SPN23 #### [facility] [address] [place] [address] Sorter Lumber Straightener: Saw Zhu MD #### SED, CRP, CDP #### [address] [place], [place] [id number] Sorter Lumber Straightener: Ziggy Hilario MD #### IGE, IMMS #### [address] [address] Sorter Lumber Straightener: Reno Duron MD WBC (Bld) [#/Vol] 11.8 10*3/uL High 3.5-11.3 [facility] Comment on above: Performed By: #### A SPN23 #### [facility] [address] [place] [address] Sorter Lumber Straightener: Saw Zhu MD #### SED, CRP, CDP #### [address] [place] [address] Sorter Lumber Straightener: Ziggy Hilario MD #### IGE, IMMS #### [facility] [address] [place] [address] Sorter Lumber Straightener: Reno Duron MD IgEon 07-31-2025 IgE Qn 88 [IU]/L [facility] Immunoglobulin Luis Immunoglobulin E 88 IU/mL Normal 0-100 [facility] Comment on above: Performed By: #### C OVRB #### [address] [place] [address] Sorter Lumber Straightener: Ziggy Hilario MD Immunoglobulin Panel (IgG, I gA, IgM)on 07-31-2025 IgA [Mass/Vol] 306 mg/dL 70 - 400 mg/dL [facility] IgG [Mass/Vol] 813 mg/dL 700 - 1600 mg/dL [facility] IgM [Mass/Vol] 54 mg/dL 40 - 230 mg/dL [facility] Immunoglobulinson 07-31-2025 IgA [Mass/Vol] 306 mg/dL Normal 70-400 [facility] Comment on above: Performed By: #### C OVRB #### [address] [place] [address] Sorter Lumber Straightener: Ziggy Hilario MD IgG [Mass/Vol] 813 mg/dL Normal 700-1600 [facility] Comment on above: Performed By: #### C OVRB #### [address] [place] [address] Sorter Lumber Straightener: Ziggy Hilario MD IgM [Mass/Vol] 54 mg/dL Normal 40-230 [facility] Comment on above: Performed By: #### C OVRB #### [facility] [address] [place], [place] [id number] Sorter Lumber Straightener: Ziggy Hilario MD Sedimentation Rateon 025 ESR Photometric method (Bld) [Velocity] 1 [facility] Sedimentation Rate 1 mm/Hr Normal 0-20 [facility] Comment on above: Performed By: #### C OVRB #### [facility] [address] [place], [place] [id number] Sorter Lumber Straightener: Ziggy Hilario MD Urinalysis w/ Microon 2024 Bilirubin, SemiQt,Ur Negative Normal NEG [facility] Comment on above: Performed By: #### C DP, CMPX #### [facility] [address] [place] [address] S[employer] Lumber Straightener: Ziggy Hilario MD Blood, Urine Negative Normal NEG [facility] Comment on above: Performed By: #### C DP, CMPX #### [facility] [address] [place] [address] [employer] Lumber Straightener: Ziggy Hilario MD Clarity (U) Clear Normal CLEAR [facility] Comment on above: Performed By: #### C DP, CMPX #### [facility] [address] [place], [place] [address] Sorter Lumber Straightener: Ziggy Hilario MD Color (U) Yellow Normal YEL [facility] Comment on above: Performed By: #### C DP, CMPX #### [facility] [address] [place], [place] [id number] S[employer] Lumber Straightener: Ziggy Hilario MD Epithelial cells LM Ql (Urine sed) None Normal 0-5 [facility] Comment on above: Performed By: #### C DP, CMPX #### [facility] [address] [place], [place] [id number] Sorter Lumber Straightener: Ziggy Hilario MD Glucose Ql (U) Negative Normal NEG [facility] Comment on above: Performed By: #### C DP, CMPX #### [facility] [address] [place] [address] [place], [place] [id number] S[employer] Lumber Straightener: Ziggy Hilario MD Ketones Ql (U) Negative Normal NEG [facility] Comment on above: Performed By: #### C DP, CMPX #### [facility] [address] [place] [address] [place] [place], [place] [id number] S[employer] Lumber Straightener: Ziggy Hilario MD Leukocyte esterase Test strip Ql (U) Negative Normal NEG [facility] Comment on above: Performed By: #### C DP, CMPX #### [address] [place], [place] [id number] Sorter Lumber Straightener: Ziggy Hilario MD Nitrite,Ur Negative Normal NEG [facility] Comment on above: Performed By: #### C DP, CMPX #### [facility] [address] [place] [address] [place] [address] Sorter Lumber Straightener: Ziggy Hilario MD PH,Ur 7.0 Normal 5.0-9.0 [facility] Comment on above: Performed By: #### C DP, CMPX #### [address] [place], [place] [address] Sorter Lumber Straightener: Ziggy Hilario MD Protein Ql (U) Negative Normal NEG [facility] Comment on above: Performed By: #### C DP, CMPX #### [facility] [address] [place] [address] [place]. [place], [place] [id number] Sorter Lumber Straightener: Ziggy Hilario MD Spec. [place],Ur <1.005 Low 1.010-1.020 [facility] Comment on above: Performed By: #### C DP, CMPX #### [facility] [address] [place] [address] [place] [place], [place] [id number] Sorter Lumber Straightener: Ziggy Hilario MD Urine RBC's None Normal 0-2 [facility] Comment on above: Performed By: #### C DP, CMPX #### [facility] [address] [place] [address] Sorter Lumber Straightener: Ziggy Hilario MD Urine WBC's 0 TO 2 Normal 0-5 [facility] Comment on above: Performed By: #### C DP, CMPX #### [facility] [address] [place] [address] Sorter Lumber Straightener: Ziggy Hilario MD Urobilinogen,Ur Normal Normal 0.0-1.0 [facility] Comment on above: Performed By: #### C DP, CMPX #### [facility] [address] [place] [address] Sorter Lumber Straightener: Ziggy Hilario MD Urinalysis with Microscopico n 07-31-2025 Bilirubin Ql (U) Negative NEGATIVE [place] [facility] Clarity (U) Clear Clear [facility] Color (U) Yellow Yellow [facility] Epithelial cells LM.HPF (Urine sed) [#/Area] None [facility] Glucose Test strip (U) [Mass/Vol] Negative NEGATIVE mg/dL [facility] Hemoglobin Auto test strip Ql (U) Negative NEGATIVE [facility] Interpretation and review of laboratory results Abnormal [facility] Ketones (U) [Mass/Vol] Negative NEGATIVE mg/dL [facility] Leukocyte esterase Test strip Ql (U) Negative NEGATIVE [facility] Nitrite Ql (U) Negative NEGATIVE [place] [facility] pH (U) 7.0 [pH] 5.0 - 9.0 [facility] Protein (U) [Mass/Vol] Negative NEGATIVE mg/dL [facility] RBC LM.HPF (Urine sed) [#/Area] None [facility] Specific gravity (U) [Rel density] Low 1.010 - 1.020 [facility] Urobilinogen Qn (U) Normal 0.0 - 1. 0 EU/dL [facility] WBC LM.HPF (Urine sed) [#/Area] 0 TO 2 [facility] Cult, Bloodon 07-28-2025 Cult, Blood Specimen Description .BLOOD Special Requests 20ML RIGHT FOREARM Culture NO GROWTH 5 DAYS Report Status FINAL 07/28/2025 [facility] Comment on above: Performed By: #### B CUL2 #### [facility] [address] [place] [address] Sorter Lumber Straightener: Ziggy Hilario MD Cult,Bloodon 07-28-2025 Cult,Blood Specimen Description .BLOOD Special Requests 20ML LEFT AC Culture NO GROWTH 5 DAYS Report Status FINAL 07/28/2025 [facility] Comment on above: Performed By: #### C P, CDP, SALI #### [address] [place] [address] Sorter Lumber Straightener: Ziggy Hilario MD Resp Viral Panelon Adenovirus Not detected [facility] Comment on above: Performed By: #### C P, CDP, SALI #### [address] [place], [place] [id number] Sorter Lumber Straightener: MD Rikki Mariodet.parapertussis Not detected Normal [facility] Comment on above: Performed By: #### C P, CDP, SALI #### [address] [place], [place] [id number] Sorter Lumber Straightener: Ziggy Hilario MD Bordetella pertussis Not detected Normal [facility] Comment on above: Performed By: #### C P, CDP, SALI #### [address] [place], [place] [id number] Sorter Lumber Straightener: Ziggy Hilario MD Chlamyd.pneumoniae Not detected [facility] Comment on above: Performed By: #### C P, CDP, SALI #### [facility] [address] [place] [address] Sorter Lumber Straightener: Ziggy Hilario MD Coronavirus 229E Not detected [facility] Comment on above: Performed By: #### C P, CDP, SALI #### [facility] [address] [place] [address] [place] [address] Sorter Lumber Straightener: Ziggy Hilario MD Coronavirus HKU1 Not detected [facility] Comment on above: Performed By: #### C P, CDP, SALI #### [facility] [address] [place] [address] [place] [address] Sorter Lumber Straightener: Ziggy Hilario MD Coronavirus NL63 Not detected [facility] Comment on above: Performed By: #### C P, CDP, SALI #### [address] [place] [address] Sorter Lumber Straightener: Ziggy Hilario MD Coronavirus OC43 Not detected [facility] Comment on above: Performed By: #### C P, CDP, SALI #### [address] [place] [address] Sorter Lumber Straightener: Ziggy Hilario MD Human Metapneumo Not detected [facility] Comment on above: Performed By: #### C P, CDP, SALI #### [facility] [address] [place] [address] [place] [address] Sorter Lumber Straightener: Ziggy Hilario MD Influenza A Not detected [facility] Comment on above: Performed By: #### C P, CDP, SALI #### [facility] [address] [place] [address] [place] [address] Sorter L[employer] Straightener: Ziggy Hilario MD Influenza B Not detected [facility] Comment on above: Performed By: #### C P, CDP, SALI #### [facility] [address] [place] [address] [place] [address] Sorter Lumber Straightener: Ziggy Hilario MD Mycoplas.pneumoniae Not detected Normal [facility] Comment on above: Result Comment: Perf ormed by multiplexed nucleic acid assay. Performed By: #### C P, CDP, SALI #### [address] [place] [address] Sorter Lumber Straightener: Ziggy Hilario MD Parainfluenza 1 Not detected Normal [facility] Comment on above: Performed By: #### C P, CDP, SALI #### [address] [place] [address] Sorter Lumber Straightener: Ziggy Hilario MD Parainfluenza 2 Not detected [facility] Comment on above: Performed By: #### C P, CDP, SALI #### [address] [place] [address] Sorter Lumber Straightener: Ziggy Hilario MD Parainfluenza 3 Not detected Normal [facility] Comment on above: Performed By: #### C P, CDP, SALI #### [address] [place] [address] Sorter Lumber Straightener: Ziggy Hilario MD Parainfluenza 4 Not detected [facility] Comment on above: Performed By: #### C P, CDP, SALI #### [address] [place] [address] Sorter Lumber Straightener: Ziggy Hilario MD Resp Syncytial Virus Not detected Normal [facility] Comment on above: Performed By: #### C P, CDP, SALI #### [address] [place] [address] Sorter Lumber Straightener: Ziggy Hilario MD Rhino/Enterovirus Not detected Normal [facility] Comment on above: Performed By: #### C P, CDP, SALI #### [facility] [address] [place], [place] [id number] Sorter Lumber Straightener: Ziggy Hilario MD SARS-CoV-2 (COVID-19) RNA NAZ+probe Ql (Unsp spec) Not detected Normal NOTDET [facility] Comment on above: Performed By: #### C P, CDP, SALI #### [facility] [address] [place], [place] [id number] Sorter Lumber Straightener: Ziggy Hilario MD Basic Metabolic Profon 07-23 Anion gap [Moles/Vol] 12 mmol/L Normal 9-16 [facility] Comment on above: Performed By: #### C DP, CMPX #### [facility] [address] [place], [place] [id number] Sorter Lumber Straightener: Ziggy Hilario MD BUN/CRE Ratio 12 Normal 9- [facility] Comment on above: Performed By: #### C DP, CMPX #### [facility] [address] [place], [place] [id number] Sorter Lumber Straightener: Ziggy Hilario MD Calcium [Mass/Vol] 9.5 mg/dL Normal 8.6-10.4 [facility] Comment on above: Performed By: #### C DP, CMPX #### [facility] [address] [place], [place] 5124383 Sorter Lumber Straightener: Ziggy Hilario MD Chloride [Moles/Vol] 97 mmol/L Low 98-107 [facility] Comment on above: Performed By: #### C DP, CMPX #### [facility] [address] [place], [place] 363[address]83 Sorter Lumber Straightener: Ziggy Hilario MD CO2 [Moles/Vol] 27 mmol/L Normal 20-31 [facility] Comment on above: Performed By: #### C DP, CMPX #### [facility] [address] [place], [place] 8[address]2483 Sorter Lumber Straightener: Ziggy Hilario MD Creatinine [Mass/Vol] 1.1 mg/dL Normal 0.70-1.20 [facility] Comment on above: Performed By: #### C DP, CMPX #### [facility] [address] [place] [address] Sorter Lumber Straightener: Ziggy Hilario MD GFR/1.73 sq M.predicted among non-blacks MDRD (S/P/Bld) [Vol rate/Area] 77 mL/min/{1.73_m2} Normal >60 [facility] Comment on above: Result Comment: These [...] renal tubular secretion. Performed By: #### C DP, CMPX #### [facility] [address] [place] [address] Sorter Lumber Straightener: Ziggy Hilario MD Glucose [Mass/Vol] 124 mg/dL High 74-99 [facility] Comment on above: Performed By: #### C DP, CMPX #### [facility] [address] [place] [address] Sorter Lumber Straightener: Ziggy Hilario MD Potassium [Moles/Vol] 4.3 mmol/L Normal 3.7-5.3 [facility] Comment on above: Performed By: #### C DP, CMPX #### [facility] [address] [place] [address] Sorter Lumber Straightener: Ziggy Hilario MD Sodium [Moles/Vol] 136 mmol/L Normal 136-145 [facility] Comment on above: Performed By: #### C DP, CMPX #### [facility] [address] [place] [address] Sorter Lumber Straightener: Ziggy Hilario MD Urea nitrogen [Mass/Vol] 13 mg/dL Normal 6-20 [facility] Comment on above: Performed By: #### C DP, CMPX #### [facility] [address] [place], [place] [id number] Sorter Lumber Straightener: Ziggy Hilario MD CBC with Diffon 07-23-2025 Abs. Basophil 0.09 k/uL Normal 0.00-0.20 [facility] Comment on above: Performed By: #### C DP, CMPX #### [address] [place] [address] Sorter Lumber Straightener: Ziggy Hilario MD Abs.Imm.Granulocyte 0.07 k/uL Normal 0.00-0.30 [facility] Comment on above: Performed By: #### C DP, CMPX #### [address] [place] [address] Sorter Lumber Straightener: Ziggy Hilario MD Abs.Neutrophil (Seg) 8.49 k/uL High 1.50-8.10 [facility] Comment on above: Performed By: #### C DP, CMPX #### [address] [place] [address] Sorter Lumber Straightener: Ziggy Hilario MD Basophils/100 WBC (Bld) 1 % Normal 0-2 [facility] Comment on above: Performed By: #### C DP, CMPX #### [facility] [address] [place], [place] [id number] Sorter Lumber Straightener: Ziggy Hilario MD Eosinophils (Bld) [#/Vol] 0.08 10*3/uL Normal 0.00-0.44 [facility] Comment on above: Performed By: #### C DP, CMPX #### [facility] [address] [place] [address] Sorter Lumber Straightener: Ziggy Hilario MD Eosinophils/100 WBC (Bld) 1 % Normal 1-4 [facility] Comment on above: Performed By: #### C DP, CMPX #### [facility] [address] [place], [place] 3391283 Sorter Lumber Straightener: Ziggy Hilario MD Erythrocyte distribution width (RBC) [Ratio] 13.0 % Normal 11.8-14.4 [facility] Comment on above: Performed By: #### C DP, CMPX #### [facility] [address] [place], [place] [id number] Sorter Lumber Straightener: Ziggy Hilario MD Hematocrit (Bld) [Volume fraction] 40.9 % Normal 40.7-50.3 [facility] Comment on above: Performed By: #### C DP, CMPX #### [address] [place], [place] 6409183 Sorter Lumber Straightener: Ziggy Hilario MD Hemoglobin (Bld) [Mass/Vol] 13.4 g/dL Normal 13.0-17.0 [facility] Comment on above: Performed By: #### C DP, CMPX #### [address] [place], [place] 6649483 Sorter Lumber Straightener: Ziggy Hilario MD Immature granulocytes/100 WBC (Bld) 1 % High 0 [facility] Comment on above: Performed By: #### C DP, CMPX #### [address] [place], [place] [address]119183 Sorter Lumber Straightener: Ziggy Hilario MD Lymphocytes (Bld) [#/Vol] 3.96 10*3/uL High 1.10-3.70 [facility] Comment on above: Performed By: #### C DP, CMPX #### [address] [place], [place] 1350483 Sorter Lumber Straightener: Ziggy Hilario MD Lymphocytes/100 WBC (Bld) 29 % Normal 24-43 [facility] Comment on above: Performed By: #### C DP, CMPX #### [facility] [address] [place], [place] 9686383 Sorter Lumber Straightener: Ziggy Hilario MD MCH (RBC) [Entitic mass] 29.5 pg Normal 25.2-33.5 [facility] Comment on above: Performed By: #### C DP, CMPX #### [facility] [address] [place], [place] 447[address]83 Sorter Lumber Straightener: Ziggy Hilario MD MCHC (RBC) [Mass/Vol] 32.8 g/dL Normal 28.4-34.8 [facility] Comment on above: Performed By: #### C DP, CMPX #### [address] [place], [place] 1914783 Sorter Lumber Straightener: Ziggy Hilario MD MCV (RBC) [Entitic vol] 90.1 fL Normal 82.6-102.9 [facility] Comment on above: Performed By: #### C DP, CMPX #### [address] [place], [place] 8639583 Sorter Lumber Straightener: Ziggy Hilario MD Monocytes (Bld) [#/Vol] 1.11 10*3/uL Normal 0.10-1.20 [facility] Comment on above: Performed By: #### C DP, CMPX #### [address] [place], [place] 2574983 Sorter Lumber Straightener: Ziggy Hilario MD Monocytes/100 WBC (Bld) 8 % Normal 3-12 [facility] Comment on above: Performed By: #### C DP, CMPX #### [facility] [address] [place] [address] Sorter Lumber Straightener: Ziggy Hilario MD Neutrophil (Seg) 60 % Normal 36-65 [facility] Comment on above: Performed By: #### C DP, CMPX #### [facility] [address] [place], [facility] Sorter Lumber Straightener: Ziggy Hilario MD NRBC Automated 0.0 per 100 WBC Normal 0.0 [facility] Comment on above: Performed By: #### C DP, CMPX #### [address] [place], [place] 0790983 Sorter Lumber Straightener: Ziggy Hilario MD Platelet mean volume (Bld) [Entitic vol] 9.7 fL Normal 8.1-13.5 [facility] Comment on above: Performed By: #### C DP, CMPX #### [address] [place], [facility] Sorter Lumber Straightener: Ziggy Hilario MD Platelets (Bld) [#/Vol] 419 10*3/uL Normal 138-453 [facility] Comment on above: Performed By: #### C DP, CMPX #### [address] [place], [facility] Sorter Lumber Straightener: Ziggy Hilario MD RBC (Bld) [#/Vol] 4.54 10*6/uL Normal 4.21-5.77 [facility] Comment on above: Performed By: #### C DP, CMPX #### [address] [place], [facility] Sorter Lumber Straightener: Ziggy Hilario MD WBC (Bld) [#/Vol] 13.8 10*3/uL High 3.5-11.3 [facility] Comment on above: Performed By: #### C DP, CMPX #### [address] [place], [place] [id number] Sorter Lumber Straightener: Ziggy Hilario MD CT CHEST ABDOMEN PELVIS W CO NTRASTon 07-23-2025 CT CHEST ABDOMEN PELVIS W CONTRAST EXAMINATION: CT OF THE CHEST, ABDOMEN, AND PELVIS WITH CONTRAST 07/23/2025 4:13 pm TECHNIQUE: CT of the chest, abdomen and pelvis was performed with the administration of intravenous contrast. Multiplanar reformatted images are provided for review. Automated exposure control, iterative reconstruction, and/or weight based adjustment of the mA/kV was utilized to reduce the radiation dose to as low as reasonably achievable. COMPARISON: None HISTORY: ORDERING SYSTEM PROVIDED HISTORY: Cough nausea vomiting abdominal pain TECHNOLOGIST PROVIDED HISTORY: Cough nausea vomiting abdominal pain Decision Support Exception - unselect if not a suspected or confirmed emergency medical condition->Emergency Medical Condition (MA) FINDINGS: Chest: Lungs and Airways: Centrilobular nodules and tree-in-bud opacities noted in the superior segment of the right lower lobe. Bibasilar subsegmental atelectasis. Pleura: No pleural effusion. No pneumothorax. Lymph nodes: No pathologically enlarged mediastinal, lower cervical, or chest wall lymph nodes. Cardiovascular and Mediastinum: Heart size is normal. Physiologic volume of pericardial fluid. The thyroid gland is unremarkable. The esophagus is unremarkable. Abdomen/Pelvis: Liver: There is normal hepatic parenchymal enhancement. No focal hepatic mass. Portal and hepatic veins are patent. No intrahepatic biliary ductal dilation. Biliary: Status post cholecystectomy. Spleen: Surgically absent. Probable splenule in the splenectomy bed. Pancreas: Status post pancreatectomy. Adrenal Glands: Normal morphology. Kidneys / Ureters: Kidneys enhance symmetrically. No hydronephrosis. No focal renal mass. No urinary calculi. GI/Bowel: Stomach, small and large bowel are normal in caliber. No pathologic wall thickening is evident. No perienteric inflammatory change. Peritoneum/Retroperitoneu m: No lymphadenopathy or ascites is present. Aorta/IVC: Aorta is normal in caliber. No evidence of aneurysm. Unremarkable IVC. Bladder: Gas noted in the lumen of the urinary bladder. Bones/Soft Tissues: Postoperative changes following multilevel vertebral body augmentation. IMPRESSION: Centrilobular nodules and tree-in-bud opacities in the superior segment of the right lower lobe likely infectious or inflammatory. Gas noted in the lumen of the urinary bladder. Recommend correlation for cystitis. Postoperative changes following resection of the gallbladder, pancreas and spleen. No evidence of bowel obstruction. Interpreted by: Fantasma Chanel MD Signed by: Fantasma Chanel MD 07/23/25 Final result Normal [facility] Flu A/B Ag Detectionon 07-23 Flu A Ag Detection Negative Normal NEG [facility] Comment on above: Result Comment: for Influenza A Antigen Performed By: #### U RC #### [facility] [address] [place] [address] Sorter Lumber Straightener: Reno Duron MD [facility] [address] [place] [address] Sorter Lumber Straightener: Ziggy Hilario MD Flu B Ag Detection Negative Normal NEG [facility] Comment on above: Result Comment: for Influenza B Antigen. Performed By: #### U RC #### [facility] [address] [place] [address] Sorter Lumber Straightener: Reno Duron MD [facility] [address] [place] [address] Sorter Lumber Straightener: Ziggy Hilario MD Liver Profileon 07-23-2025 Albumin [Mass/Vol] 4.5 g/dL Normal 3.5-5.2 [facility] Comment on above: Performed By: #### C DP, CMPX #### [facility] [address] [place] [address] Sorter Lumber Straightener: Ziggy Hilario MD Albumin/Glob Ratio 1.7 Normal 1.0-2.5 [facility] Comment on above: Performed By: #### C DP, CMPX #### [facility] [address] [place] [address] Sorter Lumber Straightener: Ziggy Hilario MD Alkaline Phos 116 U/L Normal 40-129 [facility] Comment on above: Performed By: #### C DP, CMPX #### [facility] [address] [place] [address] Sorter Lumber Straightener: Ziggy Hilario MD ALT [Catalytic activity/Vol] 47 U/L Normal 10-50 [facility] Comment on above: Performed By: #### C DP, CMPX #### [facility] [address] [place] [address] Sorter Lumber Straightener: Ziggy Hilario MD AST [Catalytic activity/Vol] 44 U/L Normal 10-50 [facility] Comment on above: Performed By: #### C DP, CMPX #### [facility] [address] [place] [address] Sorter Lumber Straightener: Ziggy Hilario MD Bilirubin [Mass/Vol] 0.3 mg/dL Normal 0.00-1.20 [facility] Comment on above: Performed By: #### C DP, CMPX #### [facility] [address] [place] [address] Sorter Lumber Straightener: Ziggy Hilario MD Bilirubin, Indirect Can not be calculated Normal 0.0-1 .0 [facility] Comment on above: Performed By: #### C DP, CMPX #### [facility] [address] [place] [address] Sorter Lumber Straightener: Ziggy Hilario MD Bilirubin.indirect [Mass/Vol] mg/dL Normal 0.00-0.30 [facility] Comment on above: Performed By: #### C DP, CMPX #### [address] [place], [place] [address]783 Sorter Lumber Straightener: Ziggy Hilario MD Protein [Mass/Vol] 7.1 g/dL Normal 6.6-8.7 [facility] Comment on above: Performed By: #### C DP, CMPX #### [address] [place] [address] Sorter Lumber Straightener: Ziggy Hilario MD Resp Viral Panelon Source: .NASOPHARYNGEAL SWAB Normal [facility] Comment on above: Performed By: #### C P, CDP, SALI #### [facility] [address] [place], [place] [id number] Sorter Lumber Straightener: Ziggy Hilario MD [id number] 07-23-2025 SARS-CoV-2 (COVID-19) RNA NAZ+probe Ql (Unsp spec) Not detected Normal NOTDET [facility] Comment on above: Result Comment: Rapid NAAT: [...] Amplification Performed By: #### C OVRB #### [facility] [address] [place] [address] Sorter Lumber Straightener: Ziggy Hilario MD Troponinon 07-23-2025 Troponin, High Sens 10 ng/L Normal 0-22 [facility] Comment on above: Result Comment: High Sensitivity Troponin values cannot be compared with other Troponin methodologies. Performed By: #### C DP, CMPX #### [facility] [address] [place] [address] Sorter Lumber Straightener: Ziggy Hilario MD XR CHEST PORTABLEon 07-23-20 XR CHEST PORTABLE EXAM: 1 VIEW(S) XRAY OF THE CHEST 07/23/2025 06:11:28 PM COMPARISON: No prior study. Date: 06/18/2025. CLINICAL HISTORY: dyspnea. FINDINGS: LUNGS AND PLEURA: Minimal right basilar atelectasis. No focal consolidation. No pulmonary edema. No pleural effusion. No pneumothorax. HEART AND MEDIASTINUM: Cardiomediastinal silhouettes are similar. BONES AND SOFT TISSUES: Postoperative changes are seen in the spine. Degenerative change in the shoulders. No acute osseous abnormality is identified. IMPRESSION: 1. No acute cardiopulmonary pathology. 2. Minimal right basilar atelectasis. Interpreted by: Ziggy Lyn MD Signed by: Ziggy Lyn MD 07/23/25 Final result Normal [facility] CNPNon 07-01-2025 CNPN Normal [facility] Cult, Bloodon 06-23-2025 Cult, Blood Specimen Description .BLOOD 10mL Special Requests RH by MADISON in ER Culture NO GROWTH 5 DAYS Report Status FINAL 06/23/2025 [facility] Comment on above: Performed By: #### C OVRB #### [facility] [address] [place] [address] Sorter Lumber Straightener: Ziggy Hilario MD Cult,Bloodon 06-23-2025 Cult,Blood Specimen Description .BLOOD 3mL AEROBIC ONLY Special Requests 3mL RAC by MADISON in ER Culture NO GROWTH 5 DAYS Report Status FINAL 06/23/2025 [facility] Comment on above: Performed By: #### C OVRB #### [facility] [address] [place] [address] Sorter Lumber Straightener: Ziggy Hilario MD CBC with Auto Differentialon 06-18-2025 Basophils (Bld) [#/Vol] 0.09 10*3/uL [facility] Immature granulocytes (Bld) [#/Vol] 0.11 10*3/uL [facility] Interpretation and review of laboratory results Abnormal [facility] Lymphocytes/100 WBC (Bld) 3.26 % [facility] Monocytes/100 WBC (Bld) 1.37 % High [facility] Neutrophils/100 WBC (Bld) 76 % High 36 - 65 % [facility] Nucleated RBC/100 WBC (Bld) [Ratio] 0.0 % 0.0 per 100 WBC [facility] Segmented neutrophils/100 WBC (Bld) 15.88 % High [facility] WBC other (Bld) [#/Vol] 20.8 High [facility] CBC with Diffon 06-18-2025 Basophils/100 WBC (Bld) 0 % Normal 0-2 [facility] Comment on above: Performed By: #### P RCAL #### [facility] [address] [place] [address] Sorter Lumber Straightener: Reno Duron MD Eosinophils (Bld) [#/Vol] 0.07 10*3/uL Normal 0.00-0.44 [facility] Comment on above: Performed By: #### P RCAL #### [address] [address] Sorter Lumber Straightener: Reno Duron MD Eosinophils/100 WBC (Bld) 0 % Low 1-4 [facility] Comment on above: Performed By: #### P RCAL #### [place] [address] Sorter Lumber Straightener: Reno Duron MD Erythrocyte distribution width (RBC) [Ratio] 13.7 % Normal 11.8-14.4 [facility] Comment on above: Performed By: #### P RCAL #### [place] [address] Sorter Lumber Straightener: Reno Duron MD Hematocrit (Bld) [Volume fraction] 36.8 % Low 40.7-50.3 [facility] Comment on above: Performed By: #### P RCAL #### [place] [address] Sorter Lumber Straightener: Reno Duron MD Hemoglobin (Bld) [Mass/Vol] 12.0 g/dL Low 13.0-17.0 [facility] Comment on above: Performed By: #### P RCAL #### [place] [address] Sorter Lumber Straightener: Reno Duron MD Immature granulocytes/100 WBC (Bld) 1 % High 0 [facility] Comment on above: Performed By: #### P RCAL #### [place] [address] Sorter Lumber Straightener: Reno Duron MD Lymphocytes/100 WBC (Bld) 16 % Low 24-43 [facility] Comment on above: Performed By: #### P RCAL #### [address] [place] [address] Sorter Lumber Straightener: Reno Duron MD MCH (RBC) [Entitic mass] 29.4 pg Normal 25.2-33.5 [facility] Comment on above: Performed By: #### P RCAL #### [address] [address] Sorter Lumber Straightener: Reno Duron MD MCHC (RBC) [Mass/Vol] 32.6 g/dL Normal 28.4-34.8 [facility] Comment on above: Performed By: #### P RCAL #### [place] [address] Sorter Lumber Straightener: Reno Duron MD MCV (RBC) [Entitic vol] 90.2 fL Normal 82.6-102.9 [facility] Comment on above: Performed By: #### P RCAL #### [place] [address] Sorter Lumber Straightener: Reno Duron MD Monocytes/100 WBC (Bld) 7 % Normal 3-12 [facility] Comment on above: Performed By: #### P RCAL #### [place] [address] Sorter Lumber Straightener: Reno Duron MD Platelet mean volume (Bld) [Entitic vol] 9.4 fL Normal 8.1-13.5 [facility] Comment on above: Performed By: #### P RCAL #### [address] [address] Sorter Lumber Straightener: Reno Duron MD Platelets (Bld) [#/Vol] 356 10*3/uL Normal 138-453 [facility] Comment on above: Performed By: #### P RCAL #### [address] [address] Sorter Lumber Straightener: Reno Duron MD RBC (Bld) [#/Vol] 4.08 10*6/uL Low 4.21-5.77 Altagracia Eva pyle [facility] Comment on above: Performed By: #### P RCAL #### [address] [address] Sorter Lumber Straightener: Reno Duron MD Abs. Basophil 0.09 k/uL Normal 0.00-0.20 [facility] Comment on above: Performed By: #### P RCAL #### [address] [address] Sorter Lumber Straightener: Reno Duron MD Abs.Imm.Granulocyte 0.11 k/uL Normal 0.00-0.30 [facility] Comment on above: Performed By: #### P RCAL #### [address] [address] Sorter Lumber Straightener: Reno Duron MD Abs.Neutrophil (Seg) 15.88 k/uL High 1.50-8.10 [facility] Comment on above: Performed By: #### P RCAL #### [address] [address] Sorter Lumber Straightener: Reno Duron MD Lymphocytes (Bld) [#/Vol] 3.26 10*3/uL Normal 1.10-3.70 [facility] Comment on above: Performed By: #### P RCAL #### [address] [address] Sorter Lumber Straightener: Reno Duron MD Monocytes (Bld) [#/Vol] 1.37 10*3/uL High 0.10-1.20 [facility] Comment on above: Performed By: #### P RCAL #### [address] [address] Sorter Lumber Straightener: Reno Duron MD Neutrophil (Seg) 76 % High 36-65 [facility] Comment on above: Performed By: #### P RCAL #### [address] [id number] Sorter Lumber Straightener: Reno Duron MD NRBC Automated 0.0 per 100 WBC Normal 0.0 [facility] Comment on above: Performed By: #### P RCAL #### [facility] [address] [place], [place] [id number] Sorter Lumber Straightener: Reno Duron MD WBC (Bld) [#/Vol] 20.8 10*3/uL High 3.5-11.3 [facility] Comment on above: Performed By: #### P RCAL #### [facility] [address] [place] [address] Sorter Lumber Straightener: Reno Duron MD COVID-19, Rapidon 06-18-2025 SARS-CoV-2 (COVID-19) RdRp gene NAZ+probe Ql (Resp) Not detected Not Detected [facility] Comment on above: Rapid NAAT: The specimen [...] Nucleic Acid Amplification Specimen Description .NASOPHARYNGEAL SWAB [facility] CT ABDOMEN PELVIS W IV CONTR Makayla [...] history of abdominal pain. Interpreted by: Aleksandr Jean Baptiste MD Signed by: Aleksandr Jean Baptiste MD 06/18/25 Final result Normal [facility] CT Abdomen and Pelvis W cont rast Thee 06-18-2025 1. No acute findings in the abdomen or pelvis related to the clinical history of abdominal pain. [facility] RIS CONSOLIDATED EXAM: CT ABDOMEN AND PELVIS [...] abnormality mentioned, except for minimal rectus diastasis. [facility] Aleksandr Romero MD - 06/18/2025 EXAM: CT ABDOMEN AND [...] to the clinical history of abdominal pain. [facility] Radiology Study observation (narrative) [facility] CT Abdomen and Pelvis W cont rast IVOrdered By: Aleksandr Jean Baptiste on 06-18-2025 [facility] Work Phone: Comp Metabolic Profon 2024 Albumin [Mass/Vol] 3.9 g/dL Normal 3.5-5.2 [facility] Comment on above: Performed By: #### P RCAL #### [address] [place] [address] Sorter Lumber Straightener: Reno Duron MD Albumin/Glob Ratio 1.7 Normal 1.0-2.5 [facility] Comment on above: Performed By: #### P RCAL #### [address] [address] Sorter Lumber Straightener: Reno Duron MD Alkaline Phos 96 U/L Normal 40-129 [facility] Comment on above: Performed By: #### P RCAL #### [address] [address] Sorter Lumber Straightener: Reno Duron MD ALT [Catalytic activity/Vol] 35 U/L Normal 10-50 [facility] Comment on above: Performed By: #### P RCAL #### [address] [address] Sorter Lumber Straightener: Reno Duron MD Anion gap [Moles/Vol] 13 mmol/L Normal 9-16 [facility] Comment on above: Performed By: #### P RCAL #### [address] [address] Sorter Lumber Straightener: Reno Duron MD AST [Catalytic activity/Vol] 32 U/L Normal 10-50 [facility] Comment on above: Performed By: #### P RCAL #### [address] [address] Sorter Lumber Straightener: Reno Duron MD Bilirubin [Mass/Vol] 0.3 mg/dL Normal 0.00-1.20 [facility] Comment on above: Performed By: #### P RCAL #### [address] [address] Sorter Lumber Straightener: Reno Duron MD BUN/CRE Ratio 14 Normal 9-20 [facility] Comment on above: Performed By: #### P RCAL #### [address] [place] [address] Sorter Lumber Straightener: Reno Duron MD Calcium [Mass/Vol] 8.9 mg/dL Normal 8.6-10.4 [facility] Comment on above: Performed By: #### P RCAL #### [address] [address] Sorter Lumber Straightener: Reno Duron MD Chloride [Moles/Vol] 98 mmol/L Normal 98-107 [facility] Comment on above: Performed By: #### P RCAL #### [address] [address] Sorter Lumber Straightener: Reno Duron MD CO2 [Moles/Vol] 23 mmol/L Normal 20-31 [facility] Comment on above: Performed By: #### P RCAL #### [address] [address] Sorter Lumber Straightener: Reno Duron MD Creatinine [Mass/Vol] 1.0 mg/dL Normal 0.70-1.20 [facility] Comment on above: Performed By: #### P RCAL #### [address] [address] Sorter Lumber Straightener: Reno Duron MD GFR/1.73 sq M.predicted among non-blacks MDRD (S/P/Bld) [Vol rate/Area] 88 mL/min/{1.73_m2} Normal >60 [facility] Comment on above: Result Comment: These [...] Performed By: #### P RCAL #### [facility] [place] [address] Sorter Lumber Straightener: Reno Duron MD Glucose [Mass/Vol] 230 mg/dL High 74-99 [facility] Comment on above: Performed By: #### P RCAL #### [facility] [place] [address] Sorter Lumber Straightener: Reno Duron MD Potassium [Moles/Vol] 4.4 mmol/L Normal 3.7-5.3 [facility] Comment on above: Performed By: #### P RCAL #### [facility] [address] [place] [address] Sorter Lumber Straightener: Reno Duron MD Protein [Mass/Vol] 6.2 g/dL Low 6.6-8.7 [facility] Comment on above: Performed By: #### P RCAL #### [facility] [address] [place] [address] Sorter Lumber Straightener: Reno Duron MD Sodium [Moles/Vol] 134 mmol/L Low 136-145 [facility] Comment on above: Performed By: #### P RCAL #### [facility] [address] [place] [address] Sorter Lumber Straightener: Reno Duron MD Urea nitrogen [Mass/Vol] 14 mg/dL Normal 6-20 [facility] Comment on above: Performed By: #### P RCAL #### [facility] [place] [address] Sorter Lumber Straightener: Reno Duron MD Comprehensive Metabolic Pane [facility] 06-18-2025 Albumin [Mass/Vol] 3.9 g/dL 3.5 - 5.2 g/dL [facility] Albumin/Globulin [Mass ratio] 1.7 {ratio} 1.0 - 2.5 [facility] ALP [Catalytic activity/Vol] 96 U/L 40 - 129 U/L [facility] ALT [Catalytic activity/Vol] 35 U/L 10 - 50 U/L [facility] Anion gap [Moles/Vol] 13 mmol/L 9 - 16 mmol/L [facility] AST [Catalytic activity/Vol] 32 U/L 10 - 50 U/L [facility] Bilirubin [Mass/Vol] 0.3 mg/dL 0.00 - 1.20 mg/dL [facility] Calcium [Mass/Vol] 8.9 mg/dL 8.6 - 10. 4 mg/dL [facility] Chloride [Moles/Vol] 98 mmol/L 98 - 10 7 mmol/L [facility] CO2 [Moles/Vol] 23 mmol/L 20 - 31 mmol/L [facility] Creatinine [Mass/Vol] 1.0 mg/dL 0.70 - 1.20 mg/dL [facility] Est, Glom Filt Rate 88 - PINF [facility] Comment on above: These results are [...] 230 mg/dL High 74 - 99 mg/dL [facility] Potassium [Moles/Vol] 4.4 mmol/L 3.7 - 5.3 mmol/L [facility] Protein [Mass/Vol] 6.2 g/dL Low 6.6 - 8.7 g/dL [facility] Sodium [Moles/Vol] 134 mmol/L Low 136 - 145 mmol/L [facility] Urea nitrogen [Mass/Vol] 14 mg/dL 6 - 20 mg/dL [facility] Urea nitrogen/Creatinine [Mass ratio] 14 mg/mg 9 - 20 [facility] Flu A/B Ag Detectionon 06-18 Flu A Ag Detection Negative Normal NEG [facility] Comment on above: Result Comment: for Influenza A Antigen Performed By: #### P RCAL #### [facility] [address] [place], [place] [id number] Sorter Lumber Straightener: Reno Duron MD Flu B Ag Detection Negative Normal NEG [facility] Comment on above: Result Comment: for Influenza B Antigen. Performed By: #### P RCAL #### [facility] [address] [place], [place] [id number] Sorter Lumber Straightener: Reno Duron MD Lactate, Sepsison 06-18-2025 Interpretation and review of laboratory results Abnormal [facility] Lactate (BldV) [Moles/Vol] 2.1 mmol/L High 0.5 - 1.9 mmol/L [facility] Lactic Acid, Sepsis 2.1 mmol/L High 0.5-1.9 [facility] Comment on above: Performed By: #### P RCAL #### [address] [place], [place] [id number] Sorter Lumber Straightener: Reno Duron MD Lactate (BldV) [Moles/Vol] 1.8 mmol/L 0.5 - 1.9 mmol/L [facility] Lactic Acid, Sepsis 1.8 mmol/L Normal 0.5-1.9 [facility] Comment on above: Performed By: #### C P, CDP, SALI #### [facility] [address] [place] [address] Sorter Lumber Straightener: Ziggy Hilario MD Lactic Acidon 06-18-2025 Lactate (BldV) [Moles/Vol] 1.3 mmol/L 0.5 - 2.2 mmol/L [facility] Lactate [Moles/Vol] 1.3 mmol/L Normal 0.5-2.2 [facility] Comment on above: Performed By: #### C P, CDP, SALI #### [facility] [address] [place] [address] Sorter Lumber Straightener: Ziggy Hilario MD Lipaseon 06-18-2025 Lipase [Catalytic activity/Vol] 7 U/L Low 13 - 60 U/L [facility] Lipase [Catalytic activity/Vol] 7 U/L Low 13-60 [facility] Comment on above: Performed By: #### P RCAL #### [facility] [address] [place] [address] Sorter Lumber Straightener: Reno Duron MD No Panel Informationon 06-18 Interpretation and review of laboratory results Abnormal [facility] Portable XR Chest AP single viewon 06-18-2025 1. Small patchy opac ity in right midlung, concerning for pneumonia. 2. Right posterior sixth rib fracture. [facility] RIS CONSOLIDATED EXAM: 1 VIEW XRAY OF [...] plate and screws noted. Spinal stimulator noted. [facility] RIS CONSOLIDATED Tommy Guerra D O - [...] pneumonia. 2. Right posterior sixth rib fracture. [facility] Radiology Study observation (narrative) [facility] Portable XR Chest AP single viewOrdered By: Tommy Guerra on 06-18-2025 [facility] Work Phone: Rapid influenza A/B antigens on 06-18-2025 FLUAV Ag Ql (Unsp spec) Negative NEGATIVE [facility] Comment on above: for Influenza A Anti gen FLUBV Ag Ql (Unsp spec) Negative NEGATIVE [facility] Comment on above: for Influenza B Anti gen. [facility] Resp Viral Panelon Adenovirus Not detected Normal [facility] Comment on above: Performed By: #### U RC #### [address] [address] Sorter Lumber Straightener: Reno Duron MD [facility] [address] [place] [address] [address]. [place], [place] [id number] Sorter Lumber Straightener: MD Vinny Mariot.parapertussis Not detected [facility] Comment on above: Performed By: #### U RC #### [address] [address] Sorter Lumber Straightener: Reno Duron MD [address] [place], [place] [id number] Sorter Lumber Straightener: Ziggy Hilario MD Bordetella pertussis Not detected Normal [facility] Comment on above: Performed By: #### U RC #### [address] [address] Sorter Lumber Straightener: Reno Duron MD [address] [place], [facility] Sorter Lumber Straightener: Ziggy Hilario MD Chlamyd.pneumoniae Not detected [facility] Comment on above: Performed By: #### U RC #### [address] [address] Sorter Lumber Straightener: Reno Duron MD [address] [place], [place] [id number] Sorter Lumber Straightener: Ziggy Hilario MD Coronavirus 229E Not detected Normal [facility] Comment on above: Performed By: #### U RC #### [facility] [address] [place] [address] Sorter Lumber Straightener: Reno Duron MD [facility] [address] [place] [address] [place] [address] Sorter Lumber Straightener: Ziggy Hilario MD Coronavirus HKU1 Not detected [facility] Comment on above: Performed By: #### U RC #### [address] [address] Sorter Lumber Straightener: Reno Duron MD [facility] [address] [place] [address] [place] [address] Sorter Lumber Straightener: Ziggy Hilario MD Coronavirus NL63 Not detected [facility] Comment on above: Performed By: #### U RC #### [address] [address] Sorter Lumber Straightener: Reno Duron MD [facility] [address] [place] [address] [place] [address] Sorter Lumber Straightener: Ziggy Hilario MD Coronavirus OC43 Not detected [facility] Comment on above: Performed By: #### U RC #### [address] [address] Sorter Lumber Straightener: Reno Durno MD [facility] [address] [place] [address] [place] [address] Sorter Lumber Straightener: Ziggy Hilario MD Human Metapneumo Not detected [facility] Comment on above: Performed By: #### U RC #### [address] [address] Sorter Lumber Straightener: Reno Duron MD [facility] [address] [place] [address] [place] [address] Sorter Lumber Straightener: Ziggy Hilario MD Influenza A Not detected [facility] Comment on above: Performed By: #### U RC #### [facility] [address] [place] [address] Sorter Lumber Straightener: Reno Duron MD [facility] [address] [place] [address] [place] [place], [place] [id number] Sorter Lumber Straightener: Ziggy Hilario MD Influenza B Not detected Normal [facility] Comment on above: Performed By: #### U RC #### [address] [address] Sorter Lumber Straightener: Reno Duron MD [facility] [address] [place] [address] [place] [address] Sorter Lumber Straightener: Ziggy Hilario MD Mycoplas.pneumoniae Not detected Normal [facility] Comment on above: Result Comment: Perf ormed by multiplexed nucleic acid assay. Performed By: #### U RC #### [address] [address] S[employer] L[employer] Straightener: Reno Duron MD [address] [place] [address] Sorter Lumber Straightener: Ziggy Hilario MD Parainfluenza 1 Not detected [facility] Comment on above: Performed By: #### U RC #### [address] [address] Sorter Lumber Straightener: Reno Duron MD [facility] [address] [place] [address] [place] [address] Sorter Lumber Straightener: Ziggy Hilario MD Parainfluenza 2 Not detected [facility] Comment on above: Performed By: #### U RC #### [address] [address] Sorter Lumber Straightener: Reno Duron MD [facility] [address] [place] [address] [place] [address] Sorter Lumber Straightener: Ziggy Hilario MD Parainfluenza 3 Not detected Normal [facility] Comment on above: Performed By: #### U RC #### [address] [place] [address] Sorter Lumber Straightener: Reno Duron MD [facility] [address] [place] [address] [place] [address] Sorter Lumber Straightener: Ziggy Hilario MD Parainfluenza 4 Not detected Normal [facility] Comment on above: Performed By: #### U RC #### [address] [address] Sorter Lumber Straightener: Reno Duron MD [facility] [address] [place] [address] [place] [address] Sorter Lumber Straightener: Ziggy Hilario MD Resp Syncytial Virus Not detected Normal [facility] Comment on above: Performed By: #### U RC #### [address] [address] Sorter L[employer] Straightener: Reno Duron MD [address] [place] [address] Sorter Lumber Straightener: Ziggy Hilario MD Rhino/Enterovirus Not detected [facility] Comment on above: Performed By: #### U RC #### [address] [address] Sorter Lumber Straightener: Reno Duron MD [address] [place] [address] Sorter Lumber Straightener: Ziggy Hilario MD SARS-CoV-2 (COVID-19) RNA NAZ+probe Ql (Unsp spec) Not detected [facility] Comment on above: Performed By: #### U RC #### [address] [address] Sorter L[employer] Straightener: Reno Duron MD [facility] [address] [place] [address] [place] [address] Sorter Lumber Straightener: Ziggy Hilario MD Source: .NASOPHARYNGEAL SWAB Normal [facility] Comment on above: Performed By: #### U RC #### [facility] [address] [place], [place] [id number] Sorter Lumber Straightener: Reno Duron MD [facility] [address] [place] [address] Sorter Lumber Straightener: Ziggy Hilario MD [id number] 06-18-2025 SARS-CoV-2 (COVID-19) RNA NAZ+probe Ql (Unsp spec) Not detected Normal NOTDET [facility] Comment on above: Result Comment: Rapid NAAT: [...] Isothermal Nucleic Acid Amplification Performed By: #### P RCAL #### [facility] [facility] [address] [place], [place] [id number] Sorter Lumber Straightener: Reno Duron MD Troponinon 06-18-2025 Troponin I.cardiac High sensitivity method [Mass/Vol] 18 ng/L 0 - 22 ng/L [facility] Comment on above: High Sensitivity Tro ponin values cannot be compared with other Troponin methodologies. Troponin, High Sens 18 ng/L Normal 0-22 [facility] Comment on above: Result Comment: High Sensitivity Troponin values cannot be compared with other Troponin methodologies. Performed By: #### P RCAL #### [facility] [address], [place] [id number] Sorter Lumber Straightener: Reno Duron MD XR CHEST PORTABLEon 08-28-20 25 XR CHEST PORTABLE EXAM: 1 VIEW [...] Tommy Guerra DO 06/18/25 Final result Normal [facility] CNPNon 06-12-2025 CNPN Normal [facility] Glucose,Whole Bloodon 2024 Glucose [Mass/Vol] 154 mg/dL High 75-110 [facility] Glucose,Whole Bloodon 2024 Glucose [Mass/Vol] 119 mg/dL High 75-110 [facility] Glucose [Mass/Vol] 203 mg/dL High 75-110 [facility] Glucose [Mass/Vol] 321 mg/dL High 75-110 [facility] Glucose [Mass/Vol] 150 mg/dL High 75-110 [facility] Glucose [Mass/Vol] 186 mg/dL High 75-110 [facility] Lipid Profileon 06-02-2025 Cholesterol [Mass/Vol] 168 mg/dL Normal 0-199 [facility] Comment on above: Result Comment: Cholesterol Guidelines: <200 Desirable 200-240 Borderline >240 Undesirable Performed By: #### L IPR ####[facility] [id number] [facility] [place] [address] [facility] Director: Maxi Plata DO Cholesterol in HDL [Mass/Vol] 49 mg/dL Normal >40 [facility] Comment on above: Result Comment: HDL Guidelines: <40 Undesirable 40-59 Borderline >59 Desirable Performed By: #### L IPR ####[facility] [id number] [facility] [place] [address] Lab Director: Maxi Plata DO Cholesterol in LDL [Mass/Vol] 95 mg/dL Normal 0-100 [facility] Comment on above: Result Comment: LDL Guidelines: <100 Desirable 100-129 Near to/above Desirable 130-159 Borderline >159 Undesirable Direct (measured) LDL and calculated LDL are not interchangeable tests. Performed By: #### L IPR ####[facility] [id number] [facility] [place] [address] Lab Director: Maxi Plata DO Cholesterol.total/Ch olesterol in HDL [Mass ratio] 3.4 {ratio} Normal [facility] Comment on above: Performed By: #### L IPR ####[facility] [id number] [facility] [place] [address] lab Director: Maxi Plata DO Triglyceride [Mass/Vol] 118 mg/dL Normal 0-149 [facility] Comment on above: Result Comment: Triglyceride Guidelines: <150 Desirable 150-199 Borderline 200-499 High >499 Very high Based on AHA Guidelines for fasting triglyceride, July 2012. Performed By: #### L IPR ####[facility] [id number] [facility] [place] [address] Lab Director: Maxi Plata DO Glucose,Whole Bloodon 2024 Glucose [Mass/Vol] 170 mg/dL High 75-110 [facility] Glucose [Mass/Vol] 141 mg/dL High 75-110 [facility] Glucose [Mass/Vol] 221 mg/dL High 75-110 [facility] Glucose [Mass/Vol] 320 mg/dL High 75-110 [facility] Glucose [Mass/Vol] 201 mg/dL High 75-110 [facility] Glucose [Mass/Vol] 208 mg/dL High 75-110 [facility] Glucose [Mass/Vol] 281 mg/dL High 75-110 [facility] Hepatitis Acute [facility] 06-01 Hep A Ab,IgM Non-Reactive Normal NR [facility] Comment on above: Performed By: #### L IVP #### [facility] [address] [facility] [place] [address] Sorter Lumber Straightener: Maxi Plata DO #### PHEP #### [address] [address] Sorter Lumber Straightener: Reno Duron MD Hep B Core Ab,IgM Non-Reactive Normal NR [facility] Comment on above: Performed By: #### L IVP #### [facility] [address] [place] [address] Sorter Lumber Straightener: Maxi Plata DO #### PHEP #### [address] [address] Sorter Lumber Straightener: Reno Duron MD Hep B Surf Ag Non-Reactive Normal [facility] Comment on above: Performed By: #### L IVP #### [facility] [address] [place] [address] Sorter Lumber Straightener: Maxi Plata DO #### PHEP #### [address] [address] Sorter Lumber Straightener: Reno Duron MD Hep C Ab Non-Reactive Normal [facility] Comment on above: Result Comment: The [...] PCR. Performed By: #### L IVP #### [facility] [address] [place] [address] Sorter Lumber Straightener: Maxi Plata DO #### PHEP #### [address] [address] Sorter Lumber Straightener: Reno Duron MD Liver Profileon 06-01-2025 Albumin [Mass/Vol] 4.5 g/dL Normal 3.5-5.2 [facility] Comment on above: Performed By: #### L IVP #### [facility] [address] [place] [address] Sorter Lumber Straightener: Maxi Plata DO #### PHEP #### [address] [address] Sorter Lumber Straightener: Reno Duron MD Alkaline Phos 118 U/L Normal 40-129 [facility] Comment on above: Performed By: #### L IVP #### [facility] [address] [place] [address] Sorter Lumber Straightener: Maxi Plata DO #### PHEP #### [address] [address] Sorter Lumber Straightener: Reno Duron MD ALT [Catalytic activity/Vol] 90 U/L High 10-50 [facility] Comment on above: Performed By: #### L IVP #### [facility] [address] [place] [address] Sorter Lumber Straightener: Maxi Plata DO #### PHEP #### [address] [address] Sorter Lumber Straightener: Reno Duron MD AST [Catalytic activity/Vol] 76 U/L High 10-50 [facility] Comment on above: Result Comment: Spec imen hemolysis has exceeded the interference as defined by Gwyn. Value may be falsely increased. Suggest recollection if clinically indicated. Performed By: #### L IVP #### [facility] [address] [place] [address] Sorter Lumber Straightener: Maxi Plata DO #### PHEP #### [address] [place] [address] Sorter Lumber Straightener: Reno Duron MD Bilirubin [Mass/Vol] 0.4 mg/dL Normal 0.0-1.2 [facility] Comment on above: Performed By: #### L IVP #### [facility] [address] [place] [address] Sorter Lumber Straightener: Maxi Plata DO #### PHEP #### [address] [place] [address] Sorter Lumber Straightener: Reno Duron MD Bilirubin, Indirect Can not be calculated Normal 0.0-1 .0 [facility] Comment on above: Performed By: #### L IVP #### [facility] [address] [place] [address] Sorter Lumber Straightener: Maxi Plata DO #### PHEP #### [address] [address] Sorter Lumber Straightener: Reno Duron MD Bilirubin.indirect [Mass/Vol] mg/dL Normal 0.0-0.3 [facility] Comment on above: Result Comment: Spec imen hemolysis has exceeded the interference as defined by Gwyn. Value may be falsely increased. Suggest recollection if clinically indicated. Performed By: #### L IVP #### [facility] [address] [place] [address] Sorter Lumber Straightener: Maxi Plata DO #### PHEP #### [address] [place] [address] Sorter Lumber Straightener: Reno Duron MD Protein [Mass/Vol] 6.9 g/dL Normal 6.6-8.7 [facility] Comment on above: Performed By: #### L IVP #### [facility] [address] [place] [address] Sorter Lumber Straightener: Maxi Plata DO #### PHEP #### [facility] [address], [place] [id number] Sorter Lumber Straightener: Reno Duron MD Cult,Bloodon 05-31-2025 Cult,Blood Specimen Description .BLOOD Special Requests 20ML LAC Culture NO GROWTH 5 DAYS Report Status FINAL 05/31/2025 Normal [facility] Comment on above: Performed By: #### U RC #### [facility] [address] [place], [place] [id number] Sorter Lumber Straightener: Reno Duron MD [facility] [address] [place] [address] [place] [address] Sorter Lumber Straightener: Ziggy Hilario MD Glucose,Whole Bloodon 2024 Glucose [Mass/Vol] 356 mg/dL High 75-110 [facility] Glucose [Mass/Vol] 355 mg/dL High 75-110 [facility] Glucose [Mass/Vol] 362 mg/dL High 75-110 [facility] Glucose [Mass/Vol] 220 mg/dL High -110 [facility] Glucose [Mass/Vol] 93 mg/dL Normal -110 [facility] Acetaminophenon 05-30-2025 Acetaminophen [Mass/Vol] ug/mL Low 10-30 [facility] Comment on above: Performed By: #### C P, CDP, SALI #### [facility] [address] [place] [address] [place] [address] Sorter Lumber Straightener: Ziggy Hilario MD Acetaminophen Levelon 2024 Acetaminophen [Mass/Vol] ug/mL Low 10 - 30 ug/mL [facility] Interpretation and review of laboratory results Abnormal [facility] CBC with Auto Differentialon 05-30-2025 Basophils (Bld) [#/Vol] 0.10 10*3/uL [facility] Basophils/100 WBC (Bld) 1 % 0 - 2 % [facility] Eosinophils (Bld) [#/Vol] 0.04 10*3/uL [facility] Eosinophils/100 WBC (Bld) 0 % Low 1 - 4 % [facility] Erythrocyte distribution width (RBC) [Ratio] 13.5 % 11.8 - 14.4 % [facility] Hematocrit (Bld) [Volume fraction] 41.8 % 40.7 - 50.3 % [facility] Hemoglobin (Bld) [Mass/Vol] 13.5 g/dL 13.0 - 17.0 g/dL [facility] Immature granulocytes (Bld) [#/Vol] 0.08 10*3/uL [facility] Immature granulocytes/100 WBC (Bld) 1 % High 0 [facility] Interpretation and review of laboratory results Abnormal [facility] Lymphocytes/100 WBC (Bld) 23 % Low 24 - 43 % [facility] Lymphocytes/100 WBC (Bld) 2.66 % [facility] MCH (RBC) [Entitic mass] 28.4 pg 25.2 - 33.5 pg [facility] MCHC (RBC) [Mass/Vol] 32.3 g/dL 28.4 - 34.8 g/dL [facility] MCV (RBC) [Entitic vol] 88.0 fL 82.6 - 102.9 fL [facility] Monocytes/100 WBC (Bld) 9 % 3 - 12 % [facility] Monocytes/100 WBC (Bld) 1.01 % [facility] Neutrophils/100 WBC (Bld) 67 % High 36 - 65 % [facility] Nucleated RBC/100 WBC (Bld) [Ratio] 0.0 % 0.0 per 100 WBC [facility] Platelet mean volume (Bld) [Entitic vol] 9.4 fL 8.1 - 13.5 fL [facility] Platelets (Bld) [#/Vol] 499 10*3/uL High [facility] RBC (Bld) [#/Vol] 4.75 10*6/uL 4.21 - 5.7 7 m/uL [facility] Segmented neutrophils/100 WBC (Bld) 7.95 % [facility] WBC other (Bld) [#/Vol] 11.8 High [facility] CBC with Diffon 05-30-2025 Abs. Basophil 0.10 k/uL Normal 0.00-0.20 [facility] Comment on above: Performed By: #### C P, CDP, SALI #### [facility] [address] [place], [place] [address] Sorter Lumber Straightener: Ziggy Hilario MD Abs.Imm.Granulocyte 0.08 k/uL Normal 0.00-0.30 [facility] Comment on above: Performed By: #### C P, CDP, SALI #### [facility] [address] [place], [place] [address] Sorter Lumber Straightener: Ziggy Hilario MD Abs.Neutrophil (Seg) 7.95 k/uL Normal 1.50-8.10 [facility] Comment on above: Performed By: #### C P, CDP, SALI #### [facility] [address] [place], [place] [address] Sorter Lumber Straightener: Ziggy Hilario MD Basophils/100 WBC (Bld) 1 % Normal 0-2 [facility] Comment on above: Performed By: #### C P, CDP, SALI #### [address] [place], [place] [address] Sorter Lumber Straightener: Ziggy Hilario MD Eosinophils (Bld) [#/Vol] 0.04 10*3/uL Normal 0.00-0.44 [facility] Comment on above: Performed By: #### C P, CDP, SALI #### [facility] [address] [place], [facility] Sorter Lumber Straightener: Ziggy Hilario MD Eosinophils/100 WBC (Bld) 0 % Low 1-4 [facility] Comment on above: Performed By: #### C P, CDP, SALI #### [facility] [address] [place], [facility] Sorter Lumber Straightener: Ziggy Hilario MD Erythrocyte distribution width (RBC) [Ratio] 13.5 % Normal 11.8-14.4 [facility] Comment on above: Performed By: #### C P, CDP, SALI #### [facility] [address] [place] [address] Sorter Lumber Straightener: Ziggy Hilario MD Hematocrit (Bld) [Volume fraction] 41.8 % Normal 40.7-50.3 [facility] Comment on above: Performed By: #### C P, CDP, SALI #### [facility] [address] [place], [facility]83 Sorter Lumber Straightener: Ziggy Hilario MD Hemoglobin (Bld) [Mass/Vol] 13.5 g/dL Normal 13.0-17.0 [facility] Comment on above: Performed By: #### C P, CDP, SALI #### [address] [place], [place] [address] Sorter Lumber Straightener: Ziggy Hilario MD Immature granulocytes/100 WBC (Bld) 1 % High 0 [facility] Comment on above: Performed By: #### C P, CDP, SALI #### [address] [place], [facility]83 Sorter Lumber Straightener: Ziggy Hilario MD Lymphocytes (Bld) [#/Vol] 2.66 10*3/uL Normal 1.10-3.70 [facility] Comment on above: Performed By: #### C P, CDP, SALI #### [facility] [address] [place] [address] Sorter Lumber Straightener: Ziggy Hilario MD Lymphocytes/100 WBC (Bld) 23 % Low 24-43 [facility] Comment on above: Performed By: #### C P, CDP, SALI #### [facility] [address] [place] [address] Sorter Lumber Straightener: Ziggy Hilario MD MCH (RBC) [Entitic mass] 28.4 pg Normal 25.2-33.5 [facility] Comment on above: Performed By: #### C P, CDP, SALI #### [address] [place], [place] [address] Sorter Lumber Straightener: Ziggy Hilario MD MCHC (RBC) [Mass/Vol] 32.3 g/dL Normal 28.4-34.8 [facility] Comment on above: Performed By: #### C P, CDP, SALI #### [address] [place], [place] [address] Sorter Lumber Straightener: Ziggy Hilario MD MCV (RBC) [Entitic vol] 88.0 fL Normal 82.6-102.9 [facility] Comment on above: Performed By: #### C P, CDP, SALI #### [address] [place], [facility]83 Sorter Lumber Straightener: Ziggy Hilario MD Monocytes (Bld) [#/Vol] 1.01 10*3/uL Normal 0.10-1.20 [facility] Comment on above: Performed By: #### C P, CDP, SALI #### [address] [place], [place] [id number] Sorter Lumber Straightener: Ziggy Hilario MD Monocytes/100 WBC (Bld) 9 % Normal 3-12 [facility] Comment on above: Performed By: #### C P, CDP, SALI #### [address] [place], [place] [address]783 Sorter Lumber Straightener: Ziggy Hilario MD Neutrophil (Seg) 67 % High 36-65 [facility] Comment on above: Performed By: #### C P, CDP, SALI #### [address] [place], [place] [address]83 Sorter Lumber Straightener: Ziggy Hilario MD NRBC Automated 0.0 per 100 WBC Normal 0.0 [facility] Comment on above: Performed By: #### C P, CDP, SALI #### [facility] [address] [place], [place] [address] Sorter Lumber Straightener: Ziggy Hilario MD Platelet mean volume (Bld) [Entitic vol] 9.4 fL Normal 8.1-13.5 [facility] Comment on above: Performed By: #### C P, CDP, SALI #### [facility] [address] [place], [place] [id number] Sorter Lumber Straightener: Ziggy Hilario MD Platelets (Bld) [#/Vol] 499 10*3/uL High 138-453 [facility] Comment on above: Performed By: #### C P, CDP, SALI #### [address] [place], [place] [address]83 Sorter Lumber Straightener: Ziggy Hilario MD RBC (Bld) [#/Vol] 4.75 10*6/uL Normal 4.21-5.77 [facility] Comment on above: Performed By: #### C P, CDP, SALI #### [address] [place], [place] [address]83 Sorter Lumber Straightener: Ziggy Hilario MD WBC (Bld) [#/Vol] 11.8 10*3/uL High 3.5-11.3 [facility] Comment on above: Performed By: #### C P, CDP, SALI #### [address] [place], [place] [id number] Sorter Lumber Straightener: Ziggy Hilario MD Comp Metabolic Profon 2024 Albumin [Mass/Vol] 4.8 g/dL Normal 3.5-5.2 [facility] Comment on above: Performed By: #### C P, CDP, SALI #### [address] [place] [address] Sorter Lumber Straightener: Ziggy Hilario MD Albumin/Glob Ratio 1.7 Normal 1.0-2.5 [facility] Comment on above: Performed By: #### C P, CDP, SALI #### [facility] [address] [place], [place] [address] Sorter Lumber Straightener: Ziggy Hilario MD Alkaline Phos 104 U/L Normal 40-129 [facility] Comment on above: Performed By: #### C P, CDP, SALI #### [facility] [address] [place], [place] [address] Sorter Lumber Straightener: Ziggy Hilario MD ALT [Catalytic activity/Vol] 114 U/L High 10-50 [facility] Comment on above: Performed By: #### C P, CDP, SALI #### [facility] [address] [place], [place] [address] Sorter Lumber Straightener: Ziggy Hilario MD Anion gap [Moles/Vol] 16 mmol/L Normal 9-16 [facility] Comment on above: Performed By: #### C P, CDP, SALI #### [facility] [address] [place], [place] [address] Sorter Lumber Straightener: Ziggy Hilario MD AST [Catalytic activity/Vol] 118 U/L [facility] 10-50 [facility] Comment on above: Performed By: #### C P, CDP, SALI #### [facility] [address] [place], [place] [id number] Sorter Lumber Straightener: Ziggy Hilario MD Bilirubin [Mass/Vol] 0.4 mg/dL Normal 0.00-1.20 [facility] Comment on above: Performed By: #### C P, CDP, SALI #### [facility] [address] [place], [place] [id number] Sorter Lumber Straightener: Ziggy Hilario MD BUN/CRE Ratio 15 Normal 9-20 [facility] Comment on above: Performed By: #### C P, CDP, SALI #### [facility] [address] [place] [address] Sorter Lumber Straightener: Ziggy Hilario MD Calcium [Mass/Vol] 10.0 mg/dL Normal 8.6-10.4 [facility] Comment on above: Performed By: #### C P, CDP, SALI #### [facility] [address] [place] [address] Sorter Lumber Straightener: Ziggy Hilario MD Chloride [Moles/Vol] 98 mmol/L Normal 98-107 [facility] Comment on above: Performed By: #### C P, CDP, SALI #### [facility] [address] [place] [address] Sorter Lumber Straightener: Ziggy Hilario MD CO2 [Moles/Vol] 21 mmol/L Normal 20-31 [facility] Comment on above: Performed By: #### C P, CDP, SALI #### [facility] [address] [place] [address] Sorter Lumber Straightener: Ziggy Hilario MD Creatinine [Mass/Vol] 1.1 mg/dL Normal 0.70-1.20 [facility] Comment on above: Performed By: #### C P, CDP, SALI #### [facility] [address] [place] [address] Sorter Lumber Straightener: Ziggy Hilario MD GFR/1.73 sq M.predicted among non-blacks MDRD (S/P/Bld) [Vol rate/Area] 78 mL/min/{1.73_m2} Normal >60 [facility] Comment on above: Result Comment: These [...] secretion. Performed By: #### C P, CDP, SALI #### [facility] [address] [place] [address] Sorter Lumber Straightener: Ziggy Hilario MD Glucose [Mass/Vol] 97 mg/dL Normal 74-99 [facility] Comment on above: Performed By: #### C P, CDP, SALI #### [facility] [address] [place] [address] Sorter Lumber Straightener: Ziggy Hilario MD Potassium [Moles/Vol] 4.3 mmol/L Normal 3.7-5.3 [facility] Comment on above: Performed By: #### C P, CDP, SALI #### [facility] [address] [place] [address] Sorter Lumber Straightener: Ziggy Hilario MD Protein [Mass/Vol] 7.6 g/dL Normal 6.6-8.7 [facility] Comment on above: Performed By: #### C P, CDP, SALI #### [facility] [address] [place] [address] Sorter Lumber Straightener: Ziggy Hilario MD Sodium [Moles/Vol] 135 mmol/L Low 136-145 [facility] Comment on above: Performed By: #### C P, CDP, SALI #### [facility] [address] [place] [address] Sorter Lumber Straightener: Ziggy Hilario MD Urea nitrogen [Mass/Vol] 16 mg/dL Normal 6-20 [facility] Comment on above: Performed By: #### C P, CDP, SALI #### [facility] [address] [place] [address] Sorter Lumber Straightener: Ziggy Hilario MD Comprehensive Metabolic Pane [facility] 05-30-2025 Albumin [Mass/Vol] 4.8 g/dL 3.5 - 5.2 g/dL [facility] Albumin/Globulin [Mass ratio] 1.7 {ratio} 1.0 - 2.5 [facility] ALP [Catalytic activity/Vol] 104 U/L 40 - 129 U/L [facility] ALT [Catalytic activity/Vol] 114 U/L High 10 - 50 U/L [facility] Anion gap [Moles/Vol] 16 mmol/L 9 - 16 mmol/L [facility] AST [Catalytic activity/Vol] 118 U/L High 10 - 50 U/L [facility] Bilirubin [Mass/Vol] 0.4 mg/dL 0.00 - 1.20 mg/dL [facility] Calcium [Mass/Vol] 10.0 mg/dL 8.6 - 10. 4 mg/dL [facility] Chloride [Moles/Vol] 98 mmol/L 98 - 10 7 mmol/L [facility] CO2 [Moles/Vol] 21 mmol/L 20 - 31 mmol/L [facility] Creatinine [Mass/Vol] 1.1 mg/dL 0.70 - 1.20 mg/dL [facility] Est, Glom Filt Rate 78 - PINF [facility] Comment on above: These results are [...] [Mass/Vol] 97 mg/dL 74 - 99 mg/dL [facility] Interpretation and review of laboratory results Abnormal [facility] Potassium [Moles/Vol] 4.3 mmol/L 3.7 - 5.3 mmol/L [facility] Protein [Mass/Vol] 7.6 g/dL 6.6 - 8.7 g/dL [facility] Sodium [Moles/Vol] 135 mmol/L Low 136 - 145 mmol/L [facility] Urea nitrogen [Mass/Vol] 16 mg/dL 6 - 20 mg/dL [facility] Urea nitrogen/Creatinine [Mass ratio] 15 mg/mg 9 - 20 [facility] Cult, Bloodon 05-30-2025 Cult, Blood Specimen Description [...] to and read back by: RAMANA ABARCA [employer] AT [employer] OFF[facility] [id number] AT [id number] RB TT Report Status FINAL 05/30/2025 Normal [facility] Comment on above: Performed By: #### C P, CDP, SALI #### [address] [place] [address] Sorter Lumber Straightener: Ziggy Hilario MD Drug Scr, Abuse, Uron 2024 Amphetamine(s),Ur Negative Normal NEG [facility] Comment on above: Result Comment: Cuto ff: 1000 ng/mL Performed By: #### C P, CDP, SALI #### [address] [place] [id number] Sorter Lumber Straightener: Ziggy Hilario MD Barbiturate(s),Ur Negative Normal NEG [facility] Comment on above: Result Comment: Cuto ff: 200 ng/ml Performed By: #### C P, CDP, SALI #### [address] [place] [id number] [employer] Lumber Straightener: Ziggy Hilario MD Benzodiazepine(s) Negative Normal NEG [facility] Comment on above: Result Comment: Cuto ff: 200 ng/ml Performed By: #### C P, CDP, SALI #### [address] [place] [address] [employer] Straightener: Ziggy Hilario MD Cannabinoid(s),Ur Negative Normal NEG [facility] Comment on above: Result Comment: Cuto ff: 50 ng/ml Performed By: #### C P, CDP, SALI #### [facility] [address] [place] [address] [place] [place], [place] [id number] [employer] Straightener: Ziggy Hilario MD Cocaine Metabolite Negative [facility] Comment on above: Result Comment: Cuto ff: 300 ng/ml Performed By: #### C P, CDP, SALI #### [address] [place] [address] [employer] Straightener: Ziggy Hilario MD Fentanyl, Urine Negative Normal [facility] Comment on above: Result Comment: Cuto ff: 5 ng/ml Performed By: #### C P, CDP, SALI #### [address] [place], [place] [id number] [employer]: Ziggy Hilario MD Interpretive Info This method is a screening test to detect only these drug classes as part of a Normal [facility] Comment on above: Result Comment: medi bright workup. Confirmatory testing by another method should be ordered if clinically indicated. Performed By: #### C P, CDP, SALI #### [address] [place], [place] [id number] [employer] Straightener: Ziggy Hilario MD Methadone Ql (U) Negative Normal [facility] Comment on above: Result Comment: Cuto ff: 300 ng/ml Performed By: #### C P, CDP, SALI #### [address] [place], [place] [id number] [employer] Straightener: Ziggy Hilario MD Opiate(s), Ur Negative Normal NEG [facility] Comment on above: Result Comment: Cuto ff: 300 ng/ml Note: The Opiate screen is not intended to detect Oxycodone. Performed By: #### C P, CDP, SALI #### [address] [place], [place] [id number] [employer] Straightener: Ziggy Hilario MD Oxycodone, Urine Negative Normal [facility] Comment on above: Result Comment: Cuto ff: 100 ng/ml Performed By: #### C P, CDP, SALI #### [facility] [address] [place] [address] [employer] Straightener: Ziggy Hilario MD Phencyclidine, Ur Negative Normal NEG [facility] Comment on above: Result Comment: Cuto ff: 25 ng/ml Performed By: #### C P, CDP, SALI #### [facility] [address] [place] [address] [employer] L[employer] Straightener: Ziggy Hilario MD EKG 12 LeadOrdered By: Rudolph Strong on 05-30-2025 Atrial Rate 77 BPM [employer] Phone: P [place] 48 degrees [employer] Phone: P-R Interval 146 ms [employer] Phone: Q-T Interval 382 ms [employer] Phone: QRS Duration 94 ms [employer] Phone: QTc Calculation (Bazett) 432 ms [employer] Phone: R [place] -2 degrees [employer] Phone: T [place] 33 degrees [employer] Phone: Ventricular Rate 77 BPM [facility] [employer] Phone: [employer] Phone: EKG 12 Leadon 05-30-2025 Normal sinus rhythm Normal ECG When compared with ECG of 17-Mar-2024 14:02, Sinus rhythm has replaced Electronic ventricular pacemaker Confirmed by Uli Strong ([id number]) on 05/30/2025 10:55:51 PM [facility] RADIOLOGY Uli Strong MD - 05/30/2025 Normal sinus rhythm Normal ECG When compared with ECG of 17-Mar-2024 14:02, Sinus rhythm has replaced Electronic ventricular pacemaker Confirmed by Uli Strong ([id number]) on 05/30/2025 10:55:51 PM [facility] Ethanolon 05-30-2025 Ethanol percent 0.001 % NINF - 0.010 % [facility] Ethanolamine [Mass/Vol] <10 NINF - 10 mg/dL [facility] Ethanol Alcoholon 05-30-2025 Ethanol [Mass/Vol] mg/dL Normal <10 [facility] Comment on above: Performed By: #### C P, CDP, SALI #### [facility] [address] [place] [address] [employer] Straightener: Ziggy Hilario MD Ethanol percent 0.001 % Normal <0.010 [facility] Comment on above: Performed By: #### C P, CDP, SALI #### [facility] [address] [place] [address] [employer] Straightener: Ziggy Hilario MD No Panel Informationon 05-30 [facility] Salicylateon 05-30-2025 Salicylates [Mass/Vol] mg/dL 0.0 - 10.0 mg/dL [facility] Salicylate <0.5 Normal 0.0-10.0 [facility] Comment on above: Performed By: #### C P, CDP, SALI #### [facility] [address] [place] [address] [employer] Straightener: Ziggy Hilario MD Urine Drug Screenon 05-30-20 25 Amphetamines Ql (U) Negative NEGATIVE [facility] [place] Comment on above: Cutoff: 1000 ng/mL Barbiturates Screen Ql (U) Negative NEGATIVE [facility] Comment on above: Cutoff: 200 ng/ml Benzodiazepines Ql (U) Negative NEGATIVE [facility] Comment on above: Cutoff: 200 ng/ml Cannabinoids Screen Ql (U) Negative NEGATIVE [facility] Comment on above: Cutoff: 50 ng/ml Cocaine Ql (U) Negative NEGATIVE [facility] Comment on above: Cutoff: 300 ng/ml fentaNYL Ql (U) Negative NEGATIVE [facility] [employer] Comment on above: Cutoff: 5 ng/ml Methadone Ql (U) Negative NEGATIVE [facility] [employer] Comment on above: Cutoff: 300 ng/ml Opiates Screen Ql (U) Negative NEGATIVE [facility] [employer] Comment on above: Cutoff: 300 ng/ml Note: The Opiate screen is not intended to detect Oxycodone. oxyCODONE Ql (U) Negative NEGATIVE [facility] [employer] Comment on above: Cutoff: 100 ng/ml Phencyclidine Ql (U) Negative NEGATIVE [facility] [employer] Comment on above: Cutoff: 25 ng/ml Test Information This method is a screening test to detect only these drug classes as part of a medical workup. Confirmatory testing by another method should be ordered if clinically indicated. [facility] [employer] XR CHEST (2 VW)on 05-30-2025 XR CHEST [...] IMPRESSION: 1. No acute process. Interpreted by: Parvez Kwon IV, MD Signed by: Parvez Kwon IV, MD 05/30/25 Final result Normal [facility] XR Chest 2 Viewson 1. No acute process. [facility] EXAM: 2 VIEW(S) XRAY OF [...] of thoracic spine. No acute osseous abnormality. [facility] Parvez Kwon IV, MD - 05/30/2025 EXAM: 2 VIEW(S) [...] osseous abnormality. IMPRESSION: 1. No acute process. [facility] Radiology Study observation (narrative) [facility] [employer] X[facility] Chest 2 ViewsOrdered By: Parvez Kwon on 05-30-2025 [facility] [employer] Work Phone: CBC auto differentialon Basophils (Bld) [#/Vol] 0.09 10*3/uL [facility] Basophils/100 WBC (Bld) 1 % 0 - 2 % [facility] Eosinophils (Bld) [#/Vol] 0.14 10*3/uL [facility] Eosinophils/100 WBC (Bld) 1 % 1 - 4 % [facility] Erythrocyte distribution width (RBC) [Ratio] 14.3 % 11.8 - 14.4 % [facility] Hematocrit (Bld) [Volume fraction] 36.4 % Low 40.7 - 50.3 % [facility] Hemoglobin (Bld) [Mass/Vol] 11.3 g/dL Low 13.0 - 17.0 g/dL [facility] Immature granulocytes (Bld) [#/Vol] 0.09 10*3/uL [facility] [employer] Immature granulocytes/100 WBC (Bld) 1 % High 0 [facility] Interpretation and review of laboratory results Abnormal [facility] Lymphocytes/100 WBC (Bld) 34 % 24 - 43 % [facility] Lymphocytes/100 WBC (Bld) 3.74 % High [facility] MCH (RBC) [Entitic mass] 29 pg 25.2 - 33.5 pg [facility] MCHC (RBC) [Mass/Vol] 31 g/dL 28.4 - 34.8 g/dL [facility] MCV (RBC) [Entitic vol] 93.3 fL 82.6 - 102.9 fL [facility] Monocytes/100 WBC (Bld) 11 % 3 - 12 % [facility] Monocytes/100 WBC (Bld) 1.16 % [facility] Neutrophils/100 WBC (Bld) 52 % 36 - 65 % [facility] Nucleated RBC/100 WBC (Bld) [Ratio] 0 % 0.0 per 100 WBC [facility] Platelet mean volume (Bld) [Entitic vol] 9.8 fL 8.1 - 13.5 fL [facility] Platelets (Bld) [#/Vol] 396 10*3/uL [facility] RBC (Bld) [#/Vol] 3.9 10*6/uL Low 4.21 - 5.7 7 m/uL [facility] Segmented neutrophils/100 WBC (Bld) 5.69 % [facility] WBC other (Bld) [#/Vol] 10.9 [facility] CBC with Diffon 05-27-2025 Abs. Basophil 0.09 k/uL Normal 0.00-0.20 [facility] Comment on above: Performed By: #### C DP, CMPX #### [facility] [address] [place] [address] [place] [address] [employer] Stra[employer]ener: Ziggy Hilario MD Abs.Imm.Granulocyte 0.09 k/uL Normal 0.00-0.30 [facility] Comment on above: Performed By: #### C DP, CMPX #### [facility] [address] [place] [address] [employer] Straightener: Ziggy Hilario MD Abs.Neutrophil (Seg) 5.69 k/uL Normal 1.50-8.10 [facility] Comment on above: Performed By: #### C DP, CMPX #### [facility] [address] [place], [place] [id number] [employer] Straightener: Ziggy Hilario MD Basophils/100 WBC (Bld) 1 % Normal 0-2 [facility] Comment on above: Performed By: #### C DP, CMPX #### [facility] [address] [place], [place] [id number] S[employer] L[employer] Straightener: Ziggy Hilario MD Eosinophils (Bld) [#/Vol] 0.14 10*3/uL Normal 0.00-0.44 [facility] Comment on above: Performed By: #### C DP, CMPX #### [address] [place], [place] [id number] S[employer] L[employer] Straightener: Ziggy Hilario MD Eosinophils/100 WBC (Bld) 1 % Normal 1-4 [facility] Comment on above: Performed By: #### C DP, CMPX #### [address] [place], [facility]83 S[employer] Stra[employer]ener: Ziggy Hilario MD Erythrocyte distribution width (RBC) [Ratio] 14.3 % Normal 11.8-14.4 [facility] Comment on above: Performed By: #### C DP, CMPX #### [address] [place], [facility] [employer] Stra[employer]ener: Ziggy Hilario MD Hematocrit (Bld) [Volume fraction] 36.4 % Low 40.7-50.3 [facility] Comment on above: Performed By: #### C DP, CMPX #### [address] [place], [facility] [employer] Stra[employer]ener: Ziggy Hilario MD Hemoglobin (Bld) [Mass/Vol] 11.3 g/dL Low 13.0-17.0 [facility] Comment on above: Performed By: #### C DP, CMPX #### [address] [place] [address] S[employer] L[employer] Straightener: Ziggy Hilario MD Immature granulocytes/100 WBC (Bld) 1 % High 0 [facility] Comment on above: Performed By: #### C DP, CMPX #### [facility] [address] [place], [place] [id number] [employer] Stra[employer]ener: Ziggy Hliario MD Lymphocytes (Bld) [#/Vol] 3.74 10*3/uL High 1.10-3.70 [facility] Comment on above: Performed By: #### C DP, CMPX #### [facility] [address] [place], [place] 2016283 Sorter L[employer] Straightener: Ziggy Hilario MD Lymphocytes/100 WBC (Bld) 34 % Normal 24-43 [facility] Comment on above: Performed By: #### C DP, CMPX #### [address] [place], [place] [id number] [employer] L[employer] Straightener: Ziggy Hilario MD MCH (RBC) [Entitic mass] 29.0 pg Normal 25.2-33.5 [facility] Comment on above: Performed By: #### C DP, CMPX #### [address] [place], [place] [id number] [employer] Straightener: Ziggy Hilario MD MCHC (RBC) [Mass/Vol] 31.0 g/dL Normal 28.4-34.8 [facility] Comment on above: Performed By: #### C DP, CMPX #### [address] [place] [address] S[employer] Straightener: Ziggy Hilario MD MCV (RBC) [Entitic vol] 93.3 fL Normal 82.6-102.9 [facility] Comment on above: Performed By: #### C DP, CMPX #### [address] [place] [address] Sorter L[employer] Straightener: Ziggy Hilario MD Monocytes (Bld) [#/Vol] 1.16 10*3/uL Normal 0.10-1.20 [facility] Comment on above: Performed By: #### C DP, CMPX #### [facility] [address] [place], [place] [address] Sorter L[employer] Straightener: Ziggy Hilario MD Monocytes/100 WBC (Bld) 11 % Normal 3-12 [facility] Comment on above: Performed By: #### C DP, CMPX #### [address] [place], [facility]83 S[employer] L[employer] Straightener: Ziggy Hilario MD Neutrophil (Seg) 52 % Normal 36-65 [facility] Comment on above: Performed By: #### C DP, CMPX #### [address] [place], [facility]83 Sorter L[employer] Straightener: Ziggy Hilario MD NRBC Automated 0.0 per 100 WBC Normal 0.0 [facility] Comment on above: Performed By: #### C DP, CMPX #### [address] [place], [facility]83 S[employer] L[employer] Straightener: Ziggy Hilario MD Platelet mean volume (Bld) [Entitic vol] 9.8 fL Normal 8.1-13.5 [facility] Comment on above: Performed By: #### C DP, CMPX #### [address] [place], [place] [address] Sorter Lumber Straightener: Ziggy Hilario MD Platelets (Bld) [#/Vol] 396 10*3/uL Normal 138-453 [facility] Comment on above: Performed By: #### C DP, CMPX #### [address] [place], [facility]83 Sorter Lumber Straightener: Ziggy Hilario MD RBC (Bld) [#/Vol] 3.90 10*6/uL Low 4.21-5.77 [facility] Comment on above: Performed By: #### C DP, CMPX #### [facility] [address] [place], [place] [id number] Sorter L[employer] Straightener: Ziggy Hilario MD WBC (Bld) [#/Vol] 10.9 10*3/uL Normal 3.5-11.3 [facility] Comment on above: Performed By: #### C DP, CMPX #### [facility] [address] [place], [place] [id number] Sorter L[employer] Straightener: Ziggy Hilario MD Comp Metabolic Pr/rfx MGon 0 05-27-2025 Albumin [Mass/Vol] 3.9 g/dL Normal 3.5-5.2 [facility] Comment on above: Performed By: #### C DP, CMPX #### [facility] [address] [place], [place] [id number] Sorter L[employer] Straightener: Ziggy Hilario MD Albumin/Glob Ratio 1.8 Normal 1.0-2.5 [facility] Comment on above: Performed By: #### C DP, CMPX #### [facility] [address] [place], [place] [id number] S[employer] L[employer] Straightener: Ziggy Hilario MD Alkaline Phos 93 U/L Normal 40-129 [facility] Comment on above: Performed By: #### C DP, CMPX #### [facility] [address] [place], [place] [id number] Sorter Lumber Straightener: Ziggy Hilario MD ALT [Catalytic activity/Vol] 63 U/L High 10-50 [facility] Comment on above: Performed By: #### C DP, CMPX #### [facility] [address] [place], [place] [id number] Sorter Lumber Straightener: Ziggy Hilario MD Anion gap [Moles/Vol] 10 mmol/L Normal 9-16 [facility] Comment on above: Performed By: #### C DP, CMPX #### [facility] [address] [place], [place] [id number] Sorter Lumber Straightener: Ziggy Hilario MD AST [Catalytic activity/Vol] 51 U/L High 10-50 [facility] Comment on above: Performed By: #### C DP, CMPX #### [facility] [address] [place] [address] Sorter Lumber Straightener: Ziggy Hilario MD Bilirubin [Mass/Vol] mg/dL Normal 0.00-1.20 [facility] Comment on above: Performed By: #### C DP, CMPX #### [facility] [address] [place], [place] 7005783 S[employer] L[employer] Straightener: Ziggy Hilario MD BUN/CRE Ratio 15 Normal 9-20 [facility] Comment on above: Performed By: #### C DP, CMPX #### [facility] [address] [place], [place] [id number] [employer]orter L[employer] Straightener: Ziggy Hilario MD Calcium [Mass/Vol] 9.1 mg/dL Normal 8.6-10.4 [facility] Comment on above: Performed By: #### C DP, CMPX #### [facility] [address] [place], [place] 039[address]83 Sorter L[employer] Straightener: Ziggy Hilario MD Chloride [Moles/Vol] 103 mmol/L Normal 98-107 [facility] Comment on above: Performed By: #### C DP, CMPX #### [facility] [address] [place], [place] 018[address]83 Sorter L[employer] Straightener: Ziggy Hilario MD CO2 [Moles/Vol] 26 mmol/L Normal 20-31 [facility] Comment on above: Performed By: #### C DP, CMPX #### [facility] [address] [place], [place] [id number] Sorter Lumber Straightener: Ziggy Hilario MD Creatinine [Mass/Vol] 1.2 mg/dL Normal 0.70-1.20 [facility] Comment on above: Performed By: #### C DP, CMPX #### [facility] [address] [place] [address] Sorter Lumber Straightener: Ziggy Hilario MD GFR/1.73 sq M.predicted among non-blacks MDRD (S/P/Bld) [Vol rate/Area] 71 mL/min/{1.73_m2} Normal >60 [facility] Comment on above: Result Comment: These [...] renal tubular secretion. Performed By: #### C DP, CMPX #### [address] [place] [address] Sorter Lumber Straightener: Ziggy Hilario MD Glucose [Mass/Vol] 221 mg/dL High 74-99 [facility] Comment on above: Performed By: #### C DP, CMPX #### [address] [place] [address] Sorter Lumber Straightener: Ziggy Hilario MD Potassium [Moles/Vol] 4.4 mmol/L Normal 3.7-5.3 [facility] Comment on above: Performed By: #### C DP, CMPX #### [address] [place] [address] Sorter Lumber Straightener: Ziggy Hilario MD Protein [Mass/Vol] 6.1 g/dL Low 6.6-8.7 [facility] Comment on above: Performed By: #### C DP, CMPX #### [address] [place] [address] Sorter L[employer] Straightener: Ziggy Hilario MD Sodium [Moles/Vol] 139 mmol/L Normal 136-145 [facility] Comment on above: Performed By: #### C DP, CMPX #### [facility] [address] [place] [address] Sorter L[employer] Straightener: Ziggy Hilario MD Urea nitrogen [Mass/Vol] 18 mg/dL Normal 6-20 [facility] Comment on above: Performed By: #### C DP, CMPX #### [facility] [address] [place] [address] Sorter Lumber Straightener: Ziggy Hilario MD Comprehensive Metabolic Pane l w/ Reflex to MGon 05-27-2025 Albumin [Mass/Vol] 3.9 g/dL 3.5 - 5.2 g/dL [facility] Albumin/Globulin [Mass ratio] 1.8 {ratio} 1.0 - 2.5 [facility] ALP [Catalytic activity/Vol] 93 U/L 40 - 129 U/L [facility] ALT [Catalytic activity/Vol] 63 U/L High 10 - 50 U/L [facility] Anion gap [Moles/Vol] 10 mmol/L 9 - 16 mmol/L [facility] AST [Catalytic activity/Vol] 51 U/L High 10 - 50 U/L [facility] Bilirubin [Mass/Vol] mg/dL 0.00 - 1.20 mg/dL [facility] Calcium [Mass/Vol] 9.1 mg/dL 8.6 - 10. 4 mg/dL [facility] Chloride [Moles/Vol] 103 mmol/L 98 - 10 7 mmol/L [facility] CO2 [Moles/Vol] 26 mmol/L 20 - 31 mmol/L [facility] Creatinine [Mass/Vol] 1.2 mg/dL 0.70 - 1.20 mg/dL [facility] Est, Glom Filt Rate 71 - PINF [facility] Comment on above: These results are [...] 221 mg/dL High 74 - 99 mg/dL [facility] Interpretation and review of laboratory results Abnormal [facility] Potassium [Moles/Vol] 4.4 mmol/L 3.7 - 5.3 mmol/L [facility] Protein [Mass/Vol] 6.1 g/dL Low 6.6 - 8.7 g/dL [facility] Sodium [Moles/Vol] 139 mmol/L 136 - 145 mmol/L [facility] Urea nitrogen [Mass/Vol] 18 mg/dL 6 - 20 mg/dL [facility] Urea nitrogen/Creatinine [Mass ratio] 15 mg/mg 9 - 20 [facility] Glucose, Whole Bloodon 05-27 Glucose [Mass/Vol] 71 mg/dL Low 74 - 100 mg/dL [facility] Interpretation and review of laboratory results Abnormal [facility] Glucose [Mass/Vol] 71 mg/dL Low 74-100 [facility] Glucose [Mass/Vol] 66 mg/dL Low 74 - 100 mg/dL [facility] Interpretation and review of laboratory results Abnormal [facility] Glucose [Mass/Vol] 66 mg/dL Low 74-100 [facility] Glucose [Mass/Vol] 214 mg/dL High 74 - 100 mg/dL [facility] Interpretation and review of laboratory results Abnormal [facility] Glucose [Mass/Vol] 214 mg/dL High 74-100 [facility] CBC auto differentialon Basophils (Bld) [#/Vol] 0.11 10*3/uL [facility] Basophils/100 WBC (Bld) 1 % 0 - 2 % [facility] Eosinophils (Bld) [#/Vol] 0.11 10*3/uL [facility] Eosinophils/100 WBC (Bld) 1 % 1 - 4 % [facility] Erythrocyte distribution width (RBC) [Ratio] 13.7 % 11.8 - 14.4 % [facility] Hematocrit (Bld) [Volume fraction] 37.7 % Low 40.7 - 50.3 % [facility] Hemoglobin (Bld) [Mass/Vol] 12.1 g/dL Low 13.0 - 17.0 g/dL [facility] Immature granulocytes (Bld) [#/Vol] 0.11 10*3/uL [facility] Immature granulocytes/100 WBC (Bld) 1 % High 0 [facility] Interpretation and review of laboratory results Abnormal [facility] Lymphocytes/100 WBC (Bld) 32 % 24 - 43 % [facility] Lymphocytes/100 WBC (Bld) 3.68 % [facility] MCH (RBC) [Entitic mass] 28.8 pg 25.2 - 33.5 pg [facility] MCHC (RBC) [Mass/Vol] 32.1 g/dL 28.4 - 34.8 g/dL [facility] MCV (RBC) [Entitic vol] 89.8 fL 82.6 - 102.9 fL [facility] Monocytes/100 WBC (Bld) 11 % 3 - 12 % [facility] Monocytes/100 WBC (Bld) 1.23 % High [facility] Neutrophils/100 WBC (Bld) 54 % 36 - 65 % [facility] Nucleated RBC/100 WBC (Bld) [Ratio] 0 % 0.0 per 100 WBC [facility] Platelet mean volume (Bld) [Entitic vol] 9.6 fL 8.1 - 13.5 fL [facility] Platelets (Bld) [#/Vol] 452 10*3/uL [facility] RBC (Bld) [#/Vol] 4.2 10*6/uL Low 4.21 - 5.7 7 m/uL [facility] Segmented neutrophils/100 WBC (Bld) 6.25 % [facility] WBC other (Bld) [#/Vol] 11.5 High [facility] CBC with Diffon 05-26-2025 Abs. Basophil 0.11 k/uL Normal 0.00-0.20 [facility] Comment on above: Performed By: #### C P, CDP, SALI #### [facility] [address] [place], [place] [address] [employer]: Ziggy Hilario MD Abs.Imm.Granulocyte 0.11 k/uL Normal 0.00-0.30 [facility] Comment on above: Performed By: #### C P, CDP, SALI #### [address] [place], [place] [address] [employer]: Ziggy Hilario MD Abs.Neutrophil (Seg) 6.25 k/uL Normal 1.50-8.10 [facility] Comment on above: Performed By: #### C P, CDP, SALI #### [address] [place], [place] [address] [employer]: Ziggy Hilario MD Basophils/100 WBC (Bld) 1 % Normal 0-2 [facility] Comment on above: Performed By: #### C P, CDP, SALI #### [address] [place], [place] [address] [employer] Straightener: Ziggy Hilario MD Eosinophils (Bld) [#/Vol] 0.11 10*3/uL Normal 0.00-0.44 [facility] Comment on above: Performed By: #### C P, CDP, SALI #### [address] [place], [place] [address] [employer] Straightener: Ziggy Hilario MD Eosinophils/100 WBC (Bld) 1 % Normal 1-4 [facility] Comment on above: Performed By: #### C P, CDP, SALI #### [address] [place], [facility]83 [employer]ener: Ziggy Hilario MD Erythrocyte distribution width (RBC) [Ratio] 13.7 % Normal 11.8-14.4 [facility] Comment on above: Performed By: #### C P, CDP, SALI #### [facility] [address] [place], [place] [id number] [employer]ightener: Ziggy Hilario MD Hematocrit (Bld) [Volume fraction] 37.7 % Low 40.7-50.3 [facility] Comment on above: Performed By: #### C P, CDP, SALI #### [address] [place], [facility]83 [employer]ener: Ziggy Hilario MD Hemoglobin (Bld) [Mass/Vol] 12.1 g/dL Low 13.0-17.0 [facility] Comment on above: Performed By: #### C P, CDP, SALI #### [address] [place], [facility]83 [employer]ener: Ziggy Hilario MD Immature granulocytes/100 WBC (Bld) 1 % High 0 [facility] Comment on above: Performed By: #### C P, CDP, SALI #### [address] [place], [facility]83 [employer]ener: Ziggy Hilario MD Lymphocytes (Bld) [#/Vol] 3.68 10*3/uL Normal 1.10-3.70 [facility] Comment on above: Performed By: #### C P, CDP, SALI #### [address] [place], [facility]83 [employer]ener: Ziggy Hilario MD Lymphocytes/100 WBC (Bld) 32 % Normal 24-43 [facility] Comment on above: Performed By: #### C P, CDP, SALI #### [address] [place], [facility]83 [employer]ightener: Ziggy Hilario MD MCH (RBC) [Entitic mass] 28.8 pg Normal 25.2-33.5 [facility] Comment on above: Performed By: #### C P, CDP, SALI #### [address] [place], [facility]83 [employer]ener: Ziggy Hilario MD MCHC (RBC) [Mass/Vol] 32.1 g/dL Normal 28.4-34.8 [facility] Comment on above: Performed By: #### C P, CDP, SALI #### [facility] [address] [place] [address] Dr. [place], [facility]83 [employer]ener: Ziggy Hilario MD MCV (RBC) [Entitic vol] 89.8 fL Normal 82.6-102.9 [facility] Comment on above: Performed By: #### C P, CDP, SALI #### [address] [place], [place] [address] [employer]ener: Ziggy Hilario MD Monocytes (Bld) [#/Vol] 1.23 10*3/uL High 0.10-1.20 [facility] Comment on above: Performed By: #### C P, CDP, SALI #### [address] [place], [facility]83 [employer]ener: Ziggy Hilario MD Monocytes/100 WBC (Bld) 11 % Normal 3-12 [facility] Comment on above: Performed By: #### C P, CDP, SALI #### [address] [place], [facility]83 [employer]ener: Ziggy Hilario MD Neutrophil (Seg) 54 % Normal 36-65 [facility] Comment on above: Performed By: #### C P, CDP, SALI #### [facility] [address] [place] [address] Dr. [place], [facility]83 [employer]ener: Ziggy Hilario MD NRBC Automated 0.0 per 100 WBC Normal 0.0 [facility] Comment on above: Performed By: #### C P, CDP, SALI #### [address] [place], [facility]83 [employer]ener: Ziggy Hilario MD Platelet mean volume (Bld) [Entitic vol] 9.6 fL Normal 8.1-13.5 [facility] Comment on above: Performed By: #### C P, CDP, SALI #### [facility] [address] [place], [place] [id number] [employer]ener: Ziggy Hilario MD Platelets (Bld) [#/Vol] 452 10*3/uL Normal 138-453 [facility] Comment on above: Performed By: #### C P, CDP, SALI #### [facility] [address] [place] [address] [employer] Stra[employer]ener: Ziggy Hilario MD RBC (Bld) [#/Vol] 4.20 10*6/uL Low 4.21-5.77 [facility] Comment on above: Performed By: #### C P, CDP, SALI #### [facility] [address] [place], [facility]83 [employer]ener: Ziggy Hilario MD WBC (Bld) [#/Vol] 11.5 10*3/uL High 3.5-11.3 [facility] Comment on above: Performed By: #### C P, CDP, SALI #### [address] [place], [place] [address]83 [employer]ener: Ziggy Hilario MD Comp Metabolic Pr/rfx MGon 0 8- Albumin [Mass/Vol] 4.1 g/dL Normal 3.5-5.2 [facility] Comment on above: Performed By: #### C P, CDP, SALI #### [facility] [address] [place], [place] [id number] [employer]ightener: Ziggy Hilario MD Albumin/Glob Ratio 1.8 Normal 1.0-2.5 [facility] Comment on above: Performed By: #### C P, CDP, SALI #### [facility] [address] [place], [place] [id number] [employer] Stra[employer]ener: Ziggy Hilario MD Alkaline Phos 100 U/L Normal 40-129 [facility] Comment on above: Performed By: #### C P, CDP, SALI #### [facility] [address] [place], [place] [id number] [employer] Straightener: Ziggy Hilario MD ALT [Catalytic activity/Vol] 78 U/L High 10-50 [facility] Comment on above: Performed By: #### C P, CDP, SALI #### [facility] [address] [place], [place] [id number] [employer] Stra[employer]ener: Ziggy Hilario MD Anion gap [Moles/Vol] 11 mmol/L Normal 9-16 [facility] Comment on above: Performed By: #### C P, CDP, SALI #### [facility] [address] [place] [address] [employer]ener: Ziggy Hilario MD AST [Catalytic activity/Vol] 73 U/L [facility] 10-50 [facility] Comment on above: Performed By: #### C P, CDP, SALI #### [facility] [address] [place], [place] [id number] [employer]ener: Ziggy Hilario MD Bilirubin [Mass/Vol] 0.3 mg/dL Normal 0.00-1.20 [facility] Comment on above: Performed By: #### C P, CDP, SALI #### [facility] [address] [place], [place] [address] [employer] Stra[employer]ener: Ziggy Hilario MD BUN/CRE Ratio 16 Normal 9-20 [facility] Comment on above: Performed By: #### C P, CDP, SALI #### [facility] [address] [place] [address] [employer] Straightener: Ziggy Hilario MD Calcium [Mass/Vol] 9.0 mg/dL Normal 8.6-10.4 [facility] Comment on above: Performed By: #### C P, CDP, SALI #### [facility] [address] [place], [place] [id number] [employer] Stra[employer]ener: Ziggy Hilario MD Chloride [Moles/Vol] 101 mmol/L Normal 98-107 [facility] Comment on above: Performed By: #### C P, CDP, SALI #### [facility] [address] [place] [address] [employer] Straightener: Ziggy Hilario MD CO2 [Moles/Vol] 26 mmol/L Normal 20-31 [facility] Comment on above: Performed By: #### C P, CDP, SALI #### [facility] [address] [place] [address] S[employer] L[employer] Straightener: Ziggy Hilario MD Creatinine [Mass/Vol] 1.2 mg/dL Normal 0.70-1.20 [facility] Comment on above: Performed By: #### C P, CDP, SALI #### [facility] [address] [place] [address] [employer] Straightener: Ziggy Hilario MD GFR/1.73 sq M.predicted among non-blacks MDRD (S/P/Bld) [Vol rate/Area] 74 mL/min/{1.73_m2} Normal >60 [facility] Comment on above: Result Comment: These [...] secretion. Performed By: #### C P, CDP, SALI #### [facility] [address] [place] [address] [employer] Straightener: Ziggy Hilario MD Glucose [Mass/Vol] 166 mg/dL High 74-99 [facility] Comment on above: Performed By: #### C P, CDP, SALI #### [facility] [address] [place] [address] [employer] Straightener: Ziggy Hilario MD Potassium [Moles/Vol] 4.3 mmol/L Normal 3.7-5.3 [facility] Comment on above: Performed By: #### C P, CDP, SALI #### [facility] [address] [place], [place] [id number] [employer] Stra[employer]ener: Ziggy Hilario MD Protein [Mass/Vol] 6.5 g/dL Low 6.6-8.7 [facility] Comment on above: Performed By: #### C P, CDP, SALI #### [address] [place], [place] [address] [employer] Stra[employer]ener: Ziggy Hilario MD Sodium [Moles/Vol] 138 mmol/L Normal 136-145 [facility] Comment on above: Performed By: #### C P, CDP, SALI #### [address] [place] [address] [employer] Straightener: Ziggy Hilario MD Urea nitrogen [Mass/Vol] 19 mg/dL Normal 6-20 [facility] Comment on above: Performed By: #### C P, CDP, SALI #### [address] [place] [address] [employer] L[employer] Straightener: Ziggy Hilario MD Comprehensive Metabolic Pane l w/ Reflex to MGon 05-26-2025 Albumin [Mass/Vol] 4.1 g/dL 3.5 - 5.2 g/dL [facility] Albumin/Globulin [Mass ratio] 1.8 {ratio} 1.0 - 2.5 [facility] ALP [Catalytic activity/Vol] 100 U/L 40 - 129 U/L [facility] ALT [Catalytic activity/Vol] 78 U/L High 10 - 50 U/L [facility] Anion gap [Moles/Vol] 11 mmol/L 9 - 16 mmol/L [facility] AST [Catalytic activity/Vol] 73 U/L High 10 - 50 U/L [facility] Bilirubin [Mass/Vol] 0.3 mg/dL 0.00 - 1.20 mg/dL [facility] Calcium [Mass/Vol] 9 mg/dL 8.6 - 10. 4 mg/dL [facility] Chloride [Moles/Vol] 101 mmol/L 98 - 10 7 mmol/L [facility] CO2 [Moles/Vol] 26 mmol/L 20 - 31 mmol/L [facility] Creatinine [Mass/Vol] 1.2 mg/dL 0.70 - 1.20 mg/dL [facility] Est, Glom Filt Rate 74 - PINF [facility] Comment on above: These results are [...] 166 mg/dL High 74 - 99 mg/dL [facility] Interpretation and review of laboratory results Abnormal [facility] Potassium [Moles/Vol] 4.3 mmol/L 3.7 - 5.3 mmol/L [facility] Protein [Mass/Vol] 6.5 g/dL Low 6.6 - 8.7 g/dL [facility] Sodium [Moles/Vol] 138 mmol/L 136 - 145 mmol/L [facility] Urea nitrogen [Mass/Vol] 19 mg/dL 6 - 20 mg/dL [facility] Urea nitrogen/Creatinine [Mass ratio] 16 mg/mg 9 - 20 [facility] EKG Rhythm Stripon [facility] Glucose, Whole Bloodon 05-26 Glucose [Mass/Vol] 103 mg/dL High 74-100 [facility] Interpretation and review of laboratory results Abnormal [facility] Glucose [Mass/Vol] 138 mg/dL High 74 - 100 mg/dL [facility] Interpretation and review of laboratory results Abnormal [facility] Glucose [Mass/Vol] 138 mg/dL High 74-100 [facility] Glucose [Mass/Vol] 105 mg/dL High 74 - 100 mg/dL [facility] Interpretation and review of laboratory results Abnormal [facility] Glucose [Mass/Vol] 105 mg/dL High 74-100 [facility] Glucose [Mass/Vol] 94 mg/dL 74 - 100 mg/dL [facility] Glucose [Mass/Vol] 94 mg/dL Normal 74-100 [facility] Procalcitoninon 05-26-2025 Procalcitonin [Mass/Vol] 0.04 ng/mL 0.00 - 0.09 ng/mL [facility] Comment on above: Suspected Sepsis: <0.50 ng/mL [...] entered into the Change in Procalcitonin Calculator (www.lrfvvr-vhc-glarjheaan.com) to determine the patient's Mortality Risk Prognosis In healthy neonates, plasma Procalcitonin (PCT) concentrations increase gradually after , reaching peak values at about 24 hours of age then decrease to normal values below 0.5 ng/mL by 48-72 hours of age. [facility] Procalcitonin 0.04 ng/mL Normal 0.00-0.09 [facility] Comment on above: Result Comment: [...] entered into the Change in Procalcitonin Calculator (www.aikmsa-tdo-ncwpaeztwy.[employer]) to determine the patient's Mortality Risk Prognosis In healthy neonates, plasma Procalcitonin (PCT) concentrations increase gradually after , reaching peak values at about 24 hours of age then decrease to normal values below 0.5 ng/mL by 48-72 hours of age. Performed By: #### P RCAL #### [address] [address] [employer] L[employer] Straightener: Reno Duron MD US ABDOMEN COMPLETEon 2024 [...] Jean Baptiste MD 05/26/25 Final result Normal [facility] US Abdomenon 05-26-2025 1. No acute findings . 2. Gallbladder surgically absent. [facility] CONSOLIDATED EXAM: COMPLETE ABDOMINAL ULTRASOUND TECHNIQUE: Real-time [...] is patent. No aneurysm. OTHER: No ascites. [facility] Aleksandr Jean Baptiste MD - 05/26/2025 EXAM: [...] No acute findings. 2. Gallbladder surgically absent. [facility] Radiology Study observation (narrative) [facility] US AbdomenOrdered By: Aleksandr Jean Baptiste on 05-26-2025 [facility] Work Phone: XR CHEST (2 VW)on 05-26-2025 [...] Ziggy Lyn MD 05/26/25 Final result Normal [facility] XR Chest 2 Viewson Hyperaeration with n o acute cardiopulmonary process seen. [facility] RIS CONSOLIDATED EXAMINATION: TWO XRAY [...] Hyperaeration suggestive of COPD. Flattening the hemidiaphragms. [facility] RIS CONSOLIDATED Ziggy Lyn MD - 05/26/2025 [...] Hyperaeration with no acute cardiopulmonary process seen. [facility] XR Chest 2 ViewsOrdered By: Ziggy Lyn on 05-26-2025 [facility] Work Phone: CBC with Auto Differentialon 05-25-2025 Basophils (Bld) [#/Vol] 0.13 10*3/uL [facility] Basophils/100 WBC (Bld) 1 % 0 - 2 % [facility] Eosinophils (Bld) [#/Vol] 0.09 10*3/uL [facility] Eosinophils/100 WBC (Bld) 1 % 1 - 4 % [facility] Erythrocyte distribution width (RBC) [Ratio] 13.5 % 11.8 - 14.4 % [facility] Hematocrit (Bld) [Volume fraction] 37.2 % Low 40.7 - 50.3 % [facility] Hemoglobin (Bld) [Mass/Vol] 12.2 g/dL Low 13.0 - 17.0 g/dL [facility] Immature granulocytes (Bld) [#/Vol] 0.13 10*3/uL [facility] Immature granulocytes/100 WBC (Bld) 1 % High 0 [facility] Interpretation and review of laboratory results Abnormal [facility] Lymphocytes/100 WBC (Bld) 29 % 24 - 43 % [facility] Lymphocytes/100 WBC (Bld) 3.59 % [facility] MCH (RBC) [Entitic mass] 29.3 pg 25.2 - 33.5 pg [facility] MCHC (RBC) [Mass/Vol] 32.8 g/dL 28.4 - 34.8 g/dL [facility] MCV (RBC) [Entitic vol] 89.4 fL 82.6 - 102.9 fL [facility] Monocytes/100 WBC (Bld) 11 % 3 - 12 % [facility] Monocytes/100 WBC (Bld) 1.37 % High [facility] Neutrophils/100 WBC (Bld) 57 % 36 - 65 % [facility] Nucleated RBC/100 WBC (Bld) [Ratio] 0 % 0.0 per 100 WBC [facility] Platelet mean volume (Bld) [Entitic vol] 9 fL 8.1 - 13.5 fL [facility] Platelets (Bld) [#/Vol] 433 10*3/uL [facility] RBC (Bld) [#/Vol] 4.16 10*6/uL Low 4.21 - 5.7 7 m/uL [facility] Segmented neutrophils/100 WBC (Bld) 7.2 % [facility] WBC other (Bld) [#/Vol] 12.5 High [facility] CBC with Diffon 05-25-2025 Abs. Basophil 0.13 k/uL Normal 0.00-0.20 [facility] Comment on above: Performed By: #### C OVRB #### [facility] [address] [place] [address] S[employer] L[employer] Straightener: Ziggy Hilario MD Abs.Imm.Granulocyte 0.13 k/uL Normal 0.00-0.30 [facility] Comment on above: Performed By: #### C OVRB #### [address] [place] [address] S[employer] L[employer] Straightener: Ziggy Hilario MD Abs.Neutrophil (Seg) 7.20 k/uL Normal 1.50-8.10 [facility] Comment on above: Performed By: #### C OVRB #### [address] [place] [address] S[employer] L[employer] Straightener: Ziggy Hilario MD Basophils/100 WBC (Bld) 1 % Normal 0-2 [facility] Comment on above: Performed By: #### C OVRB #### [facility] [address] [place] [address] Dr. [place], [place] [address] S[employer] L[employer] Straightener: Ziggy Hilario MD Eosinophils (Bld) [#/Vol] 0.09 10*3/uL Normal 0.00-0.44 [facility] Comment on above: Performed By: #### C OVRB #### [address] [place], [place] [address] [employer] L[employer] Straightener: Ziggy Hilario MD Eosinophils/100 WBC (Bld) 1 % Normal 1-4 [facility] Comment on above: Performed By: #### C OVRB #### [facility] [address] [place] [address] [employer] L[employer] Straightener: Ziggy Hilario MD Erythrocyte distribution width (RBC) [Ratio] 13.5 % Normal 11.8-14.4 [facility] Comment on above: Performed By: #### C OVRB #### [facility] [address] [place], [place] [id number] S[employer] L[employer] Straightener: Ziggy Hilario MD Hematocrit (Bld) [Volume fraction] 37.2 % Low 40.7-50.3 [facility] Comment on above: Performed By: #### C OVRB #### [facility] [address] [place], [place] [id number] S[employer] L[employer] Straightener: Ziggy Hilario MD Hemoglobin (Bld) [Mass/Vol] 12.2 g/dL Low 13.0-17.0 [facility] Comment on above: Performed By: #### C OVRB #### [address] [place], [place] [id number] [employer] L[employer] Straightener: Ziggy Hilario MD Immature granulocytes/100 WBC (Bld) 1 % High 0 [facility] Comment on above: Performed By: #### C OVRB #### [address] [place], [place] [address]183 S[employer] L[employer] Straightener: Ziggy Hilario MD Lymphocytes (Bld) [#/Vol] 3.59 10*3/uL Normal 1.10-3.70 [facility] Comment on above: Performed By: #### C OVRB #### [facility] [address] [place], [place] [id number] [employer] L[employer] Straightener: Ziggy Hilario MD Lymphocytes/100 WBC (Bld) 29 % Normal 24-43 [facility] Comment on above: Performed By: #### C OVRB #### [facility] [address] [place] [address] S[employer] L[employer] Straightener: Ziggy Hilario MD MCH (RBC) [Entitic mass] 29.3 pg Normal 25.2-33.5 [facility] Comment on above: Performed By: #### C OVRB #### [facility] [address] [place], [place] [id number] S[employer] L[employer] Straightener: Ziggy Hliario MD MCHC (RBC) [Mass/Vol] 32.8 g/dL Normal 28.4-34.8 [facility] Comment on above: Performed By: #### C OVRB #### [facility] [address] [place], [place] [id number] S[employer] L[employer] Straightener: Ziggy Hilario MD MCV (RBC) [Entitic vol] 89.4 fL Normal 82.6-102.9 [facility] Comment on above: Performed By: #### C OVRB #### [address] [place], [place] [address]83 [employer] L[employer] Straightener: Ziggy Hilario MD Monocytes (Bld) [#/Vol] 1.37 10*3/uL High 0.10-1.20 [facility] Comment on above: Performed By: #### C OVRB #### [facility] [address] [place], [place] [id number] S[employer] L[employer] Straightener: Ziggy Hilario MD Monocytes/100 WBC (Bld) 11 % Normal 3-12 [facility] Comment on above: Performed By: #### C OVRB #### [facility] [address] [place], [place] [id number] S[employer] L[employer] Straightener: Ziggy Hilario MD Neutrophil (Seg) 57 % Normal 36-65 [facility] Comment on above: Performed By: #### C OVRB #### [facility] [address] [place], [place] [id number] [employer] L[employer] Straightener: Ziggy Hilario MD NRBC Automated 0.0 per 100 WBC Normal 0.0 [facility] Comment on above: Performed By: #### C OVRB #### [facility] [address] [place], [place] [id number] S[employer] L[employer] Straightener: Ziggy Hilario MD Platelet mean volume (Bld) [Entitic vol] 9.0 fL Normal 8.1-13.5 [facility] Comment on above: Performed By: #### C OVRB #### [facility] [address] [place], [place] [id number] S[employer] L[employer] Straightener: Ziggy Hilario MD Platelets (Bld) [#/Vol] 433 10*3/uL Normal 138-453 [facility] Comment on above: Performed By: #### C OVRB #### [facility] [address] [place], [place] [id number] [employer] L[employer] Straightener: Ziggy Hilario MD RBC (Bld) [#/Vol] 4.16 10*6/uL Low 4.21-5.77 [facility] Comment on above: Performed By: #### C OVRB #### [facility] [address] [place], [place] [id number] S[employer] L[employer] Straightener: Ziggy Hilario MD WBC (Bld) [#/Vol] 12.5 10*3/uL High 3.5-11.3 [facility] Comment on above: Performed By: #### C OVRB #### [facility] [address] [place], [place] [id number] S[employer] L[employer] Straightener: Ziggy Hilario MD [facility] Albumin [Mass/Vol] 4.2 g/dL 3.5 - 5.2 g/dL [facility] Albumin/Globulin [Mass ratio] 1.7 {ratio} 1.0 - 2.5 [facility] ALP [Catalytic activity/Vol] 145 U/L High 40 - 129 U/L [facility] ALT [Catalytic activity/Vol] 91 U/L High 10 - 50 U/L [facility] Anion gap [Moles/Vol] 12 mmol/L 9 - 16 mmol/L [facility] AST [Catalytic activity/Vol] 90 U/L High 10 - 50 U/L [facility] Bilirubin [Mass/Vol] mg/dL 0.00 - 1.20 mg/dL [facility] Calcium [Mass/Vol] 9.1 mg/dL 8.6 - 10. 4 mg/dL [facility] Chloride [Moles/Vol] 101 mmol/L 98 - 10 7 mmol/L [facility] CO2 [Moles/Vol] 21 mmol/L 20 - 31 mmol/L [facility] Creatinine [Mass/Vol] 1.4 mg/dL High 0.70 - 1.20 mg/dL [facility] Est, Glom Filt Rate 61 - PINF [facility] Comment on above: These results are [...] 178 mg/dL High 74 - 99 mg/dL [facility] Potassium [Moles/Vol] 4.6 mmol/L 3.7 - 5.3 mmol/L [facility] Comment on above: Specimen hemolysis h as exceeded the interference as defined by Gwyn. Value may be falsely increased. Suggest recollection if clinically indicated. Protein [Mass/Vol] 6.6 g/dL 6.6 - 8.7 g/dL [facility] Sodium [Moles/Vol] 134 mmol/L Low 136 - 145 mmol/L [facility] Urea nitrogen [Mass/Vol] 22 mg/dL High 6 - 20 mg/dL [facility] Urea nitrogen/Creatinine [Mass ratio] 16 mg/mg 9 - 20 [facility] [address] ABDOMEN PELVIS WO CONTRAS Ton 05-25-2025 [...] Sid Brandt MD 05/25/25 Final result Normal [facility] CT Abdomen and Pelvis WO marlo lantiguaon 05-25-2025 EXAMINATION: CT OF THE ABDOMEN AND [...] early infiltrates posteriorly which is more prominent. [facility] Radiology Study observation (narrative) [facility] CT Abdomen and Pelvis WO con trastOrdered By: Sid Brandt on 05-25-2025 [facility] Work Phone: Comp Metabolic Profon 2024 Albumin [Mass/Vol] 4.2 g/dL Normal 3.5-5.2 [facility] Comment on above: Performed By: #### C P, CDP, SALI #### [facility] [address] [place] [address] Sorter Lumber Straightener: Ziggy Hilario MD Albumin/Glob Ratio 1.7 Normal 1.0-2.5 [facility] Comment on above: Performed By: #### C P, CDP, SALI #### [facility] [address] [place] [address] S[employer] Lumber Straightener: Ziggy Hilario MD Alkaline Phos 145 U/L High 40-129 [facility] Comment on above: Performed By: #### C P, CDP, SALI #### [facility] [address] [place] [address] [employer] Lumber Straightener: Ziggy Hilario MD ALT [Catalytic activity/Vol] 91 U/L High 10-50 [facility] Comment on above: Performed By: #### C P, CDP, SALI #### [facility] [address] [place] [address] S[employer] Lumber Straightener: Ziggy Hilario MD Anion gap [Moles/Vol] 12 mmol/L Normal 9-16 [facility] Comment on above: Performed By: #### C P, CDP, SALI #### [facility] [address] [place] [address] [place] [address] Sorter Lumber Straightener: Ziggy Hilario MD AST [Catalytic activity/Vol] 90 U/L High 10-50 [facility] Comment on above: Performed By: #### C P, CDP, SALI #### [address] [place] [address] Sorter Lumber Straightener: Ziggy Hilario MD Bilirubin [Mass/Vol] mg/dL Normal 0.00-1.20 [facility] Comment on above: Performed By: #### C P, CDP, SALI #### [address] [place] [address] Sorter Lumber Straightener: Ziggy Hilario MD BUN/CRE Ratio 16 Normal 9-20 [facility] Comment on above: Performed By: #### C P, CDP, SALI #### [facility] [address] [place] [address] [place] [address] Sorter Lumber Straightener: Ziggy Hilario MD Calcium [Mass/Vol] 9.1 mg/dL Normal 8.6-10.4 [facility] Comment on above: Performed By: #### C P, CDP, SALI #### [address] [place] [address] Sorter Lumber Straightener: Ziggy Hilario MD Chloride [Moles/Vol] 101 mmol/L Normal 98-107 [facility] Comment on above: Performed By: #### C P, CDP, SALI #### [facility] [address] [place] [address] Sorter Lumber Straightener: Ziggy Hilario MD CO2 [Moles/Vol] 21 mmol/L Normal 20-31 [facility] Comment on above: Performed By: #### C P, CDP, SALI #### [facility] [address] [place] [address] Sorter Lumber Straightener: Ziggy Hilario MD Creatinine [Mass/Vol] 1.4 mg/dL High 0.70-1.20 [facility] Comment on above: Performed By: #### C P, CDP, SALI #### [facility] [address] [place] [address] Sorter Lumber Straightener: Ziggy Hilario MD GFR/1.73 sq M.predicted among non-blacks MDRD (S/P/Bld) [Vol rate/Area] 61 mL/min/{1.73_m2} Normal >60 [facility] Comment on above: Result Comment: These [...] renal tubular secretion. Performed By: #### C P CDP, SALI #### [facility] [address] [place] [address] S[employer] Lumber Straightener: Ziggy Hilario MD Glucose [Mass/Vol] 178 mg/dL High 74-99 [facility] Comment on above: Performed By: #### C P, CDP, SALI #### [facility] [address] [place] [address] Sorter Lumber Straightener: Ziggy Hilario MD Potassium [Moles/Vol] 4.6 mmol/L Normal 3.7-5.3 [facility] Comment on above: Result Comment: Spec imen hemolysis has exceeded the interference as defined by Gwyn. Value may be falsely increased. Suggest recollection if clinically indicated. Performed By: #### C P, CDP, SALI #### [facility] [address] [place] [address] Sorter Lumber Straightener: Ziggy Hilario MD Protein [Mass/Vol] 6.6 g/dL Normal 6.6-8.7 [facility] Comment on above: Performed By: #### C P, CDP, SALI #### [facility] [address] [place] [address] Sorter Lumber Straightener: Ziggy Hilario MD Sodium [Moles/Vol] 134 mmol/L Low 136-145 [facility] Comment on above: Performed By: #### C P, CDP, SALI #### [facility] [address] [place] [address] Sorter Lumber Straightener: Ziggy Hilario MD Urea nitrogen [Mass/Vol] 22 mg/dL High 6-20 [facility] Comment on above: Performed By: #### C P, CDP, SALI #### [facility] [address] [place] [address] Sorter Lumber Straightener: Ziggy Hilario MD Lactic Acidon 05-25-2025 Lactate (BldV) [Moles/Vol] 1.2 mmol/L 0.5 - 2.2 mmol/L [facility] Lactate [Moles/Vol] 1.2 mmol/L Normal 0.5-2.2 [facility] Comment on above: Performed By: #### C OVRB #### [facility] [address] [place] [address] Sorter Lumber Straightener: Ziggy Hilario MD Lipaseon 05-25-2025 Lipase [Catalytic activity/Vol] 7 U/L Low 13 - 60 U/L [facility] Lipase [Catalytic activity/Vol] 7 U/L Low 13-60 [facility] Comment on above: Performed By: #### C P, CDP, SALI #### [facility] [address] [place] [address] Sorter Lumber Straightener: Ziggy Hilario MD No Panel Informationon 05-25 Interpretation and review of laboratory results Abnormal [facility] Urinalysison 05-25-2025 Bilirubin Ql (U) Negative NEGATIVE [facility] Clarity (U) Clear Clear [facility] Color (U) Yellow Yellow [facility] Glucose Test strip (U) [Mass/Vol] Negative NEGATIVE mg/dL [facility] Hemoglobin Auto test strip Ql (U) Negative NEGATIVE [facility] Ketones (U) [Mass/Vol] Negative NEGATIVE mg/dL [facility] Leukocyte esterase Test strip Ql (U) Negative NEGATIVE [facility] Nitrite Ql (U) Negative NEGATIVE [facility] pH (U) 6.5 [pH] 5.0 - 9.0 [facility] Protein (U) [Mass/Vol] Negative NEGATIVE mg/dL [facility] Specific gravity (U) [Rel density] 1.01 1.010 - 1.020 [facility] Urobilinogen Qn (U) Normal 0.0 - 1. 0 EU/dL [facility] Urinalysis, Routineon 2024 Bilirubin, SemiQt,Ur Negative Normal NEG [facility] Comment on above: Performed By: #### U RC #### [facility] [employer] [address] [place] [address] Sorter Lumber Straightener: Reno Duron MD [facility] [address] [place] [address] [place] [address] Sorter Lumber Straightener: Ziggy Hilario MD Blood, Urine Negative Normal NEG [facility] Comment on above: Performed By: #### U RC #### [facility] [address] [place] [address] Sorter Lumber Straightener: Reno Duron MD [facility] [address] [place] [address] [place] [address] Sorter Lumber Straightener: Ziggy Hilario MD Clarity (U) Clear Normal CLEAR [facility] Comment on above: Performed By: #### U RC #### [place] [address] [place] [address] Sorter Lumber Straightener: Reno Duron MD [facility] [address] [place] [address] Dr. [place], [place] [id number] Sorter Lumber Straightener: Ziggy Hilario MD Color (U) Yellow Normal YEL [facility] Comment on above: Performed By: #### U RC #### [address] [address] Sorter Lumber Straightener: Reno Duron MD [facility] [address] [place] [address] Dr. [place], [place] [id number] Sorter Lumber Straightener: Ziggy Hilario MD Glucose Ql (U) Negative Normal NEG [facility] Comment on above: Performed By: #### U RC #### [address] [address] Sorter Lumber Straightener: Reno Duron MD [facility] [address] [place] [address] Dr. [place], [place] [id number] Sorter Lumber Straightener: Ziggy Hilario MD Ketones Ql (U) Negative Normal NEG [facility] Comment on above: Performed By: #### U RC #### [address] [address] Sorter Lumber Straightener: Reno Duron MD [facility] [address] [place] [address] [place], [place] [id number] Sorter Lumber Straightener: Ziggy Hilario MD Leukocyte esterase Test strip Ql (U) Negative Normal NEG [facility] Comment on above: Performed By: #### U RC #### [address] [address] Sorter Lumber Straightener: Reno Duron MD [facility] [address] [place] [address] [place] [address] Sorter Lumber Straightener: Ziggy Hilario MD Nitrite,Ur Negative Normal NEG [facility] Comment on above: Performed By: #### U RC #### [address] [address] Sorter Lumber Straightener: Reno Duron MD [address] [place], [place] [id number] Sorter Lumber Straightener: Ziggy Hilario MD PH,Ur 6.5 Normal 5.0-9.0 [facility] Comment on above: Performed By: #### U RC #### [address] [address] Sorter Lumber Straightener: Reno Duron MD [address] [place] [address] Sorter Lumber Straightener: Ziggy Hilario MD Protein Ql (U) Negative Normal NEG [facility] Comment on above: Performed By: #### U RC #### [address] [address] Sorter Lumber Straightener: eRno Duron MD [address] [place] [id number] Sorter Lumber Straightener: Ziggy Hilario MD Spec. [place],Ur 1.010 Normal 1.010-1.020 [facility] Comment on above: Performed By: #### U RC #### [address] [address] Sorter Lumber Straightener: Reno Duron MD [address] [place] [address] Sorter Lumber Straightener: Ziggy Hilario MD Urobilinogen,Ur Normal Normal 0.0-1.0 [facility] Comment on above: Performed By: #### U RC #### [address] [address] Sorter Lumber Straightener: Reno Duron MD [facility] [address] [place] [address] [place] [address] Sorter Lumber Straightener: Ziggy Hilario MD XR Chest 2 Viewson Radiology Study observation (narrative) Altagracia Uriarte [facility] Cult,Urineon 05-14-2025 Cult,Urine Specimen Description .CLEAN CATCH URINE Special Requests Site: Urine Culture NO GROWTH Report Status FINAL 05/14/2025 [facility] Comment on above: Performed By: #### U RC #### [facility] [address], [place] [id number] Sorter Lumber Straightener: Reno Duron MD [facility] [address] [place] [address] Sorter Lumber Straightener: Ziggy Hilario MD [facility] 04-28-2025 [facility] CNPNon 04-03-2025 [facility] CNPNon 03-31-2025 [facility] CNPNon 03[facility]18-2025 [facility] Normal [facility] CNPNon 03-04-2025 [facility] Gastroenterology Office/Clin ic Noteon 03-03-2025 Gastroenterology Office/Clinic Note History of Present Illness This is a 54-year-old man who presented to the GI clinic for follow-up Patient has pertinent history of recurrent pancreatitis-underwent EUS in 05/2019 which showed gallbladder sludge, small stone-cholecystectomy was performed on 07/11/2019. Patient reports being followed by GI both in [facility] [Dr. Alexander] patient states that he has had recurrent episodes of pancreatitis over the last 4 years-last admission for pancreatitis was in December 2023 at [facility]. Patient states that the pancreatitis was attributed to his underlying hypertriglyceridemia. Patient has been on fenofibrate, atorvastatin for his dyslipidemia. Patient subsequently developed another episode of pancreatitis in 01/2024 while visiting family in [place]. The clinical course at the time had [...] reports that he was subsequently referred to 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 [...] duct a (more content not included)... Normal [facility] XR HAND LEFT (MIN 3 VIEWS)on 02-24-2025 [...] Diana Curtis MD 02/24/25 Final result Normal [facility] XR Hand - left 3 Viewson No acute osseous abnormality. [facility] EXAMINATION: THREE XRAY VIEWS OF THE LEFT HAND 02/24/2025 11:50 am COMPARISON: 11/30/2024 HISTORY: ORDERING SYSTEM PROVIDED HISTORY: injury to 3rd and 4fth digits TECHNOLOGIST PROVIDED HISTORY: injury to 3rd and 4fth digits FINDINGS: No acute fracture or dislocation. Joint spaces and alignment are maintained. Soft tissues are unremarkable. [facility] Diana Figueroa MD - 02/24/2025 EXAMINATION: THREE XRAY VIEWS OF THE LEFT HAND 02/24/2025 11:50 am COMPARISON: 11/30/2024 HISTORY: ORDERING SYSTEM PROVIDED HISTORY: injury to 3rd and 4fth digits TECHNOLOGIST PROVIDED HISTORY: injury to 3rd and 4fth digits FINDINGS: No acute fracture or dislocation. Joint spaces and alignment are maintained. Soft tissues are unremarkable. IMPRESSION: No acute osseous abnormality. [facility] [employer] [facility] Radiology Study observation (narrative) [facility] [employer] [facility] XR Hand - left 3 ViewsOrdere d By: Diana Curtis on 02-24-2025 [facility] [employer] [facility] Work Phone: CT ABDOMEN PELVIS [...] changes of Whipple and splenectomy. Interpreted by: Parvez Kwon IV, MD Signed by: Parvez Kwon IV, MD 02/17/25 Final result Normal [facility] CT Abdomen and Pelvis Nick [place] 02-17-2025 1. No acute finding in the abdomen or pelvis to correlate to the patient's clinical symptoms. 2. Hepatic steatosis. 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 [facility] EXAMINATION: CT OF THE ABDOMEN AND [...] at L3 and also seen at T9. [facility] Parvez Kwon IV, MD - 02/17/2025 EXAMINATION: [...] Prior surgical changes of Whipple and splenectomy. [facility] [employer] CT Abdomen and Pelvis W cont rast IVOrdered By: Parvez Kwon on 02-17-2025 [facility] [employer] Work Phone: Basic Metabolic Panelon 01-21 Anion gap [Moles/Vol] 8 mmol/L Low 9 - 16 mmol/L [facility] Calcium [Mass/Vol] 9.9 mg/dL 8.6 - 10. 4 mg/dL [facility] Chloride [Moles/Vol] 100 mmol/L 98 - 10 7 mmol/L [facility] CO2 [Moles/Vol] 31 mmol/L 20 - 31 mmol/L [facility] Creatinine [Mass/Vol] 1.0 mg/dL 0.70 - 1.20 mg/dL [facility] Est, Glorichard Roblero Rate - PINF [facility] [id number] Comment on above: These results are not [...] 117 mg/dL High 74 - 99 mg/dL [facility] [employer] Interpretation and review of laboratory results Abnormal [facility] Potassium [Moles/Vol] 5.1 mmol/L 3.7 - 5.3 mmol/L [facility] Sodium [Moles/Vol] 139 mmol/L 136 - 145 mmol/L [facility] Urea nitrogen [Mass/Vol] 14 mg/dL 6 - 20 mg/dL [facility] Urea nitrogen/Creatinine [Mass ratio] 14 mg/mg 9 - 20 [facility] Basic Metabolic Profon 02-16 Anion gap [Moles/Vol] 8 mmol/L Low 9-16 [facility] Comment on above: Performed By: #### C P, CDP, SALI #### [facility] [address] [place] [address] Sorter Lumber Straightener: Ziggy Hilario MD BUN/CRE Ratio 14 Normal 9- [facility] Comment on above: Performed By: #### C P, CDP, SALI #### [facility] [address] [place], [place] [id number] Sorter Lumber Straightener: Ziggy Hilario MD Calcium [Mass/Vol] 9.9 mg/dL Normal 8.6-10.4 [facility] Comment on above: Performed By: #### C P, CDP, SALI #### [facility] [address] [place], [place] [id number] Sorter Lumber Straightener: Ziggy Hilario MD Chloride [Moles/Vol] 100 mmol/L Normal 98-107 [facility] Comment on above: Performed By: #### C P, CDP, SALI #### [facility] [address] [place] [address] Sorter Lumber Straightener: Ziggy Hilario MD CO2 [Moles/Vol] 31 mmol/L Normal 20-31 [facility] Comment on above: Performed By: #### C P, CDP, SALI #### [facility] [address] [place] [address] Sorter Lumber Straightener: Ziggy Hilario MD Creatinine [Mass/Vol] 1.0 mg/dL Normal 0.70-1.20 [facility] Comment on above: Performed By: #### C P, CDP, SALI #### [facility] [address] [place] [address] Sorter Lumber Straightener: Ziggy Hilario MD GFR/1.73 sq M.predicted among non-blacks MDRD (S/P/Bld) [Vol rate/Area] mL/min/{1.73_m2} Normal >60 [facility] Comment on above: Result Comment: These [...] secretion. Performed By: #### C P, CDP, SALI #### [facility] [address] [place] [address] Sorter Lumber Straightener: Ziggy Hilario MD Glucose [Mass/Vol] 117 mg/dL High 74-99 [facility] Comment on above: Performed By: #### C P CDP, SALI #### [facility] [address] [place], [place] [id number] Sorter Lumber Straightener: Ziggy Hilario MD Potassium [Moles/Vol] 5.1 mmol/L Normal 3.7-5.3 [facility] Comment on above: Performed By: #### C P, CDP, SALI #### [facility] [address] [place] [address] Sorter Lumber Straightener: Ziggy Hilario MD Sodium [Moles/Vol] 139 mmol/L Normal 136-145 [facility] Comment on above: Performed By: #### C P, CDP, SALI #### [facility] [address] [place] [address] Sorter Lumber Straightener: Ziggy Hilario MD Urea nitrogen [Mass/Vol] 14 mg/dL Normal 6-20 [facility] Comment on above: Performed By: #### C P, LAVELL VILLATORO #### [facility] [address] [place] [address] Sorter Lumber Straightener: Ziggy Hilario MD CBC with Auto Differentialon 02-16-2025 Basophils (Bld) [#/Vol] 0.09 10*3/uL [facility] Basophils/100 WBC (Bld) 1 % 0 - 2 % [facility] Eosinophils (Bld) [#/Vol] 0.06 10*3/uL [facility] Eosinophils/100 WBC (Bld) 1 % 1 - 4 % [facility] Erythrocyte distribution width (RBC) [Ratio] 15.3 % High 11.8 - 14.4 % [facility] Hematocrit (Bld) [Volume fraction] 39.9 % Low 40.7 - 50.3 % [facility] Hemoglobin (Bld) [Mass/Vol] 12.5 g/dL Low 13.0 - 17.0 g/dL [facility] Immature granulocytes (Bld) [#/Vol] 0.04 10*3/uL [facility] Immature granulocytes/100 WBC (Bld) 0 % 0 [facility] Interpretation and review of laboratory results Abnormal [facility] Lymphocytes/100 WBC (Bld) 25 % 24 - 43 % [facility] Lymphocytes/100 WBC (Bld) 2.97 % [facility] MCH (RBC) [Entitic mass] 28 pg 25.2 - 33.5 pg [facility] MCHC (RBC) [Mass/Vol] 31.3 g/dL 28.4 - 34.8 g/dL [facility] MCV (RBC) [Entitic vol] 89.3 fL 82.6 - 102.9 fL [facility] Monocytes/100 WBC (Bld) 10 % 3 - 12 % [facility] Monocytes/100 WBC (Bld) 1.21 % High [facility] Neutrophils/100 WBC (Bld) 63 % 36 - 65 % [facility] Nucleated RBC/100 WBC (Bld) [Ratio] 0 % 0.0 per 100 WBC [facility] Platelet mean volume (Bld) [Entitic vol] 9.2 fL 8.1 - 13.5 fL [facility] Platelets (Bld) [#/Vol] 437 10*3/uL [facility] RBC (Bld) [#/Vol] 4.47 10*6/uL 4.21 - 5.7 7 m/uL [facility] Segmented neutrophils/100 WBC (Bld) 7.3 % [facility] WBC other (Bld) [#/Vol] 11.7 High [facility] CBC with Diffon 02-16-2025 Abs. Basophil 0.09 k/uL Normal 0.00-0.20 [facility] Comment on above: Performed By: #### C P, CDP, SALI #### [facility] [address] [place] [address] Dr. [place], [facility] Sorter Lumber Straightener: Ziggy Hilario MD Abs.Imm.Granulocyte 0.04 k/uL Normal 0.00-0.30 [facility] Comment on above: Performed By: #### C P, CDP, SALI #### [address] [place], [place] [id number] Sorter Lumber Straightener: Ziggy Hilario MD Abs.Neutrophil (Seg) 7.30 k/uL Normal 1.50-8.10 [facility] Comment on above: Performed By: #### C P, CDP, SALI #### [facility] [address] [place] [address] [place] [address] Sorter Lumber Straightener: Ziggy Hilario MD Basophils/100 WBC (Bld) 1 % Normal 0-2 [facility] Comment on above: Performed By: #### C P, CDP, SALI #### [facility] [address] [place] [address] Dr. [place], [place] [id number] Sorter Lumber Straightener: Ziggy Hilario MD Eosinophils (Bld) [#/Vol] 0.06 10*3/uL Normal 0.00-0.44 [facility] Comment on above: Performed By: #### C P, CDP, SALI #### [address] [place], [facility] Sorter L[employer] Straightener: Ziggy Hilario MD Eosinophils/100 WBC (Bld) 1 % Normal 1-4 [facility] Comment on above: Performed By: #### C P, CDP, SALI #### [address] [place], [place] [address] Sorter Lumber Straightener: Ziggy Hilario MD Erythrocyte distribution width (RBC) [Ratio] 15.3 % High 11.8-14.4 [facility] Comment on above: Performed By: #### C P, CDP, SALI #### [address] [place], [facility] Sorter Lumber Straightener: Ziggy Hilario MD Hematocrit (Bld) [Volume fraction] 39.9 % Low 40.7-50.3 [facility] Comment on above: Performed By: #### C P, CDP, SALI #### [address] [place], [facility] Sorter Lumber Straightener: Ziggy Hilario MD Hemoglobin (Bld) [Mass/Vol] 12.5 g/dL Low 13.0-17.0 [facility] Comment on above: Performed By: #### C P, CDP, SALI #### [address] [place], [facility] Sorter Lumber Straightener: Ziggy Hilario MD Immature granulocytes/100 WBC (Bld) 0 % Normal 0 [facility] Comment on above: Performed By: #### C P, CDP, SALI #### [address] [place] [address] Sorter Lumber Straightener: Ziggy Hilario MD Lymphocytes (Bld) [#/Vol] 2.97 10*3/uL Normal 1.10-3.70 [facility] Comment on above: Performed By: #### C P, CDP, SALI #### [facility] [address] [place], [place] [address] Sorter Lumber Straightener: Ziggy Hilario MD Lymphocytes/100 WBC (Bld) 25 % Normal 24-43 [facility] Comment on above: Performed By: #### C P, CDP, SALI #### [address] [place], [place] [address] Sorter Lumber Straightener: Ziggy Hilario MD MCH (RBC) [Entitic mass] 28.0 pg Normal 25.2-33.5 [facility] Comment on above: Performed By: #### C P, CDP, SALI #### [address] [place], [place] [address] Sorter Lumber Straightener: Ziggy Hilario MD MCHC (RBC) [Mass/Vol] 31.3 g/dL Normal 28.4-34.8 [facility] Comment on above: Performed By: #### C P, CDP, SALI #### [address] [place], [place] [address] Sorter Lumber Straightener: Ziggy Hilario MD MCV (RBC) [Entitic vol] 89.3 fL Normal 82.6-102.9 [facility] Comment on above: Performed By: #### C P, CDP, SALI #### [address] [address] [place], [place] [address] [employer] Lumber Straightener: Ziggy Hilario MD Monocytes (Bld) [#/Vol] 1.21 10*3/uL High 0.10-1.20 [facility] Comment on above: Performed By: #### C P, CDP, SALI #### [address] [place], [place] [address] [employer] L[employer] Straightener: Ziggy Hilario MD Monocytes/100 WBC (Bld) 10 % Normal 3-12 [facility] Comment on above: Performed By: #### C P, CDP, SALI #### [facility] [address] [place], [place] [address] [employer] Lumber Straightener: Ziggy Hilario MD Neutrophil (Seg) 63 % Normal 36-65 [facility] Comment on above: Performed By: #### C P, CDP, SALI #### [facility] [address] [place], [facility]83 [employer] Lumber Straightener: Ziggy Hilario MD NRBC Automated 0.0 per 100 WBC Normal 0.0 [facility] Comment on above: Performed By: #### C P, CDP, SALI #### [facility] [address] [place], [facility]83 S[employer] Lumber Straightener: Ziggy Hilario MD Platelet mean volume (Bld) [Entitic vol] 9.2 fL Normal 8.1-13.5 [facility] Comment on above: Performed By: #### C P, CDP, SALI #### [address] [place], [facility]83 S[employer] Lumber Straightener: Ziggy Hilario MD Platelets (Bld) [#/Vol] 437 10*3/uL Normal 138-453 [facility] Comment on above: Performed By: #### C P, CDP, SALI #### [address] [place], [place] [id number] [employer] Lumber Straightener: Ziggy Hilario MD RBC (Bld) [#/Vol] 4.47 10*6/uL Normal 4.21-5.77 [facility] Comment on above: Performed By: #### C P, CDP, SALI #### [facility] [address] [place], [place] [id number] S[employer] Lumber Straightener: Ziggy Hilario MD WBC (Bld) [#/Vol] 11.7 10*3/uL High 3.5-11.3 [facility] Comment on above: Performed By: #### C P, CDP, SALI #### [facility] [address] [place] [address] Sorter Lumber Straightener: Ziggy Hilario MD CT Abdomen and Pelvis W cont rast Thee 02-16-2025 Radiology Study observation (narrative) Altagracia Uriarte [facility] ANES POSTPROC EVALon 025 ANES POSTPROC EVAL Normal [facility] ANES PRE-OPon 01-23-2025 ANES PRE-OP Normal [facility] EGD Study observation Narrat iveon 01-23-2025 [facility] Radiology Study observation (narrative) [facility] NURSING PROGon 01-23-2025 NURSING PROG Normal [facility] NURSING PROG Normal [facility] Pathology biopsy report Jacinto (Tiss)on 01-23-2025 ADDENDUM 1: Normal [facility] Comment on above: Order Comment: Speci men Type: TISSUE SPECIMENOrdering Facility: [facility] Address: [address] [place] [address] Result Comment: Leroy. abdiel godfrey immunostain performed on the stomach biopsy (part a) to evaluate th chronic gastris is negative for organisms.Laboratory Developed Test (LDT) Disclaimer:Performance characteristics of immunohistochemical, immunofluorescent and chromogenic in-situ hybridization tests have been determined by the performing laboratory within [facility]???s [employer] Pathology and Laboratory Medicine Department ([facility], [facility], [facility], [facility], [facility], [facility], or [facility]) in a manner consistent with CLIA requirements. One or more of these tests have not been cleared or approved by the FDA. [employer]M is regulated under CLIA as qualified to perform high-complexity testing. These tests are used for clinical purposes. They should not be regarded as investigational or for research. Positive and negative controls stain appropriately.Addendum electronically signed by Parvez Chaidez MD on 01/27/2025 at 1442 EDT Performed By: #### 6 6121-5 ####[facility] LABORATORYCLIA [id number] [address] LABCLIA [id number] [address] STATES [facility] AP DISCLAIMER Normal [facility] Comment on above: Order Comment: hTeo narvaez Type: TISSUE SPECIMENOrdering Facility: [facility] Address: [address] [place] [address] Result Comment: Peter garcia Developed Test (LDT) Disclaimer:Performance characteristics of immunohistochemical, immunofluorescent, and chromogenic in-situ hybridization tests have been determined by the performing laboratory within [facility]'s [facility] Pathology and Laboratory Medicine Department ([facility], [facility], [facility], [facility], [facility], [facility], or [facility]) in a manner consistent with CLIA requirements. One or more of these tests may not have been cleared or approved by the FDA. [employer] is regulated under CLIA as qualified to perform high-complexity testing. These tests are used for clinical purposes. These should not be regarded as investigational or for research. Positive and negative controls stain appropriately. Performed By: #### 6 6121-5 ####[facility] LABORATORYCLIA [id number] [address] LABCLIA [id number] [place] [address] [place] CASE REPORT Normal [facility] Comment on above: Order Comment: Theo narvaez Type: TISSUE SPECIMENOrdering Facility: [facility] Address: [address] [place] [address] Result Comment: Surg ical Pathology Report Case: [id number] Provider: Dariusz Pratt MD Collected: 01/23/2025 03:29 PMOrdering Location: Gastroenterology Received: 01/23/2025 05:59 PMPathologist: Parvez Chaidez MDSpecimens: A) - Stomach, Biopsy B) - Esophagus, Biopsy, biopsy at 34 cm C) - Esophagus, Biopsy, biopsy at 32cm Performed By: #### 6 6121-5 ####[facility]ORATORYCLIA [id number] [address] STATES OF [facility] LABCLIA [id number] [place] [id number] [facility] DIAGNOSIS COMMENT H. pylori immunostai n is pending on the stomach biopsy. Normal [facility] Comment on above: Order Comment: Speci men Type: TISSUE SPECIMENOrdering Facility: [facility] Address: [address] [place] [address] Performed By: #### 6 6121-5 ####[facility] LABORATORYCLIA [id number] [address] LABCLIA [id number] [place] [id number] [facility] FINAL DIAGNOSIS Normal [facility] Comment on above: Order Comment: Speci men Type: TISSUE SPECIMENOrdering Facility: [facility] Address: [address] [place] [address] Result Comment: ASurya allen, biopsy:- Antral and fundic mucosa with chronic inactive gastritis; see comment.B. Esophagus at 34 cm, biopsy:- Dong's esophagus, negative for dysplasia.C. 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 at 1129 EDT Performed By: #### 6 6121-5 ####[facility] LABORATORYCLIA [id number] [address] LABCLIA [id number] [address] FINAL PERFORMING LAB Normal [facility] Comment on above: Order Comment: Speci men Type: TISSUE SPECIMENOrdering Facility: [facility] Address: [address] [place] [address] Result Comment: Diag nostic interpretation performed at: [facility] [place] [address] [place] [address] CLIA# [id number] Director: Whitney Leonardo MD Performed By: #### 6 6121-5 ####[facility] LABORATORYCLIA [id number] [address] OF [facility] LABCLIA [id number] [place] [address] [place] GROSS DESCRIPTION Normal [facility] Comment on above: Order Comment: Speci men Type: TISSUE SPECIMENOrdering Facility: [facility] Address: [address] [place] [address] Result Comment: A. S tomach, BiopsyReceived in [...] 23, 2025 7:53 PMGross examination performed at [facility], [address] [place] [address] Performed By: #### 6 6121-5 ####[facility] LABORATORYCLIA [id number] [address] OF [facility] LABCLIA [id number] [place] [address] [place] Upper GI endoscopyon 01-23- 025 Upper GI endoscopy Normal [facility] NURSING PROGon 01-16-2025 NURSING PROG Normal [facility] EGD Study observation Narrat iveon 01-05-2025 A31 Gastrointestinal Endoscopy Patient Name: Thomas Petty Procedure Date: 01/05/2025 2:57 PM Date of : 1970 Admit Type: Outpatient Age: 54 Room: [place] [address] Gender: Male Note Status: Finalized Attending MD: Remy Hardin MD, [id number] Procedure: Upper GI endoscopy Indications: Bloating Providers: Remy Hardin MDAjith (Fellow) Referring Physician: Alessandro Jacobson MD (Referring [...] previously scheduled. Procedure Code(s): --- Professional --- 56942, 52, Esophagogastroduodenoscop y, flexible, transoral; diagnostic, including collection of specimen(s) by brushing or washing, when performed (separate procedure) CPT copyright 2020 [employer]. All rights (more content not included)... [employer] [facility] Radiology Study observation (narrative) [facility] HISTORY PHYSICALon HISTORY PHYSICAL Normal [facility] NURSING PROGon 01-05-2025 NURSING PROG Normal [facility] NURSING PROG Normal [facility] Upper GI endoscopyon 025 Upper GI endoscopy Normal [facility] CNPNon 12-29-2024 CNPN Normal [facility] NURSING PROGon 12-29-2024 NURSING PROG Normal [facility] XR CHEST (2 VW)on 12-24-2024 XR CHEST [...] Lauri Billy MD 12/24/24 Final result Normal [facility] XR Chest 2 Viewson No acute process. [facility] RIS CONSOLIDATED EXAMINATION: TWO XRAY VIEWS OF THE CHEST 12/24/2024 12:30 pm COMPARISON: 08/08/2024 HISTORY: ORDERING SYSTEM PROVIDED HISTORY: Influenza A TECHNOLOGIST PROVIDED HISTORY: Influenza A, Respiratory difficulties FINDINGS: The lungs are without acute focal process. There is no effusion or pneumothorax. The cardiomediastinal silhouette is stable. The osseous structures are stable. [facility] RIS CONSOLIDATED Lauri Billy MD - 12/24/2024 EXAMINATION: TWO XRAY VIEWS OF THE CHEST 12/24/2024 12:30 pm COMPARISON: 08/08/2024 HISTORY: ORDERING SYSTEM PROVIDED HISTORY: Influenza A TECHNOLOGIST PROVIDED HISTORY: Influenza A, Respiratory difficulties FINDINGS: The lungs are without acute focal process. There is no effusion or pneumothorax. The cardiomediastinal silhouette is stable. The osseous structures are stable. IMPRESSION: No acute process. [facility] Radiology Study observation (narrative) [facility] XR Chest 2 ViewsOrdered By: Lauri Billy on 12-24-2024 [facility] Work Phone: Cult,Urineon 12-19-2024 Cult,Urine Specimen Description .CLEAN CATCH URINE Special Requests Site: Urine Culture NO GROWTH Report Status FINAL 12/19/2024 Normal [facility] Comment on above: Performed By: #### C P, CDP, SALI #### [facility] [address] [place] [address] Sorter Lumber Straightener: Ziggy Hilario MD Stool PCR [place] 12-17-19 25 Campylobacter sp PCR NEGATIVE: No Campylobacter spp. (jejuni or coli) DNA Detected [facility] Comment on above: Performed By: #### P RCAL #### [place] [address] [place] [address] Sorter Lumber Straightener: Reno Duron MD E coli enterotox PCR NEGATIVE: No Enterotoxigenic E. coli (ETEC) Heat-labile and heat-stable (LT/ST) Normal EECNEG [facility] Comment on above: Result Comment: DNA Detected Performed By: #### P RCAL #### [facility] [address] [place] [address] Sorter Lumber Straightener: Reno Duron MD Plesiomonas sp PCR Negative [facility] Comment on above: Performed By: #### P RCAL #### [place] [address] [place] [address] Sorter Lumber Straightener: Reno Duron MD Salmonella sp PCR Negative Normal SALNEG [facility] Comment on above: Performed By: #### P RCAL #### [facility] [place] [address] Sorter Lumber Straightener: Reno Duron MD Shigatoxin gene PCR Negative Normal STXNEG [facility] Comment on above: Performed By: #### P RCAL #### [facility] [place] [address] Sorter Lumber Straightener: Reno Duorn MD Shigella sp PCR Negative Normal [facility] Comment on above: Performed By: #### P RCAL #### [facility] [employer] [facility] [place] [address] Sorter Lumber Straightener: Reno Duron MD Vibrio sp PCR NEGATIVE: No Vibrio (V. vulnificus, V, parahaemolyticus and V. cholerae) DNA Normal [facility] Comment on above: Result Comment: Dete cted Performed By: #### P RCAL #### [facility] [employer] [address] [place] [address] Sorter Lumber Straightener: Reno Duron MD Yersinia gene PCR Negative [place] [facility] Comment on above: Performed By: #### P RCAL #### [facility] [place] [address] Sorter Lumber Straightener: Reno Duron MD Stool PCR [place] 12-16-19 Specimen Description .FECES Normal [facility] Comment on above: Performed By: #### P RCAL #### [facility] [place] [address] Sorter Lumber Straightener: Reno Duron MD CBC with Diffon 12-05-2024 Basophils (Bld) [#/Vol] 0.11 10*3/uL [facility] Basophils/100 WBC (Bld) 1 % 0 - 2 % [facility] Eosinophils (Bld) [#/Vol] 0.06 10*3/uL [facility] Eosinophils/100 WBC (Bld) 1 % 1 - 4 % [facility] Erythrocyte distribution width (RBC) [Ratio] 14.8 % High 11.8 - 14.4 % [facility] Hematocrit (Bld) [Volume fraction] 38.6 % Low 40.7 - 50.3 % [facility] Hemoglobin (Bld) [Mass/Vol] 12.4 g/dL Low 13.0 - 17.0 g/dL [facility] Immature granulocytes (Bld) [#/Vol] 0.05 10*3/uL [facility] Immature granulocytes/100 WBC (Bld) 0 % 0 [facility] Interpretation and review of laboratory results Abnormal [facility] Lymphocytes/100 WBC (Bld) 24 % 24 - 43 % [facility] Lymphocytes/100 WBC (Bld) 2.95 % [facility] MCH (RBC) [Entitic mass] 26.9 pg 25.2 - 33.5 pg [facility] MCHC (RBC) [Mass/Vol] 32.1 g/dL 28.4 - 34.8 g/dL [facility] MCV (RBC) [Entitic vol] 83.7 fL 82.6 - 102.9 fL [facility] Monocytes/100 WBC (Bld) 10 % 3 - 12 % [facility] Monocytes/100 WBC (Bld) 1.19 % [facility] Neutrophils/100 WBC (Bld) 64 % 36 - 65 % [facility] Nucleated RBC/100 WBC (Bld) [Ratio] 0.0 % 0.0 per 100 WBC [facility] Platelet mean volume (Bld) [Entitic vol] 9.4 fL 8.1 - 13.5 fL [facility] Platelets (Bld) [#/Vol] 538 10*3/uL High [facility] RBC (Bld) [#/Vol] 4.61 10*6/uL 4.21 - 5.7 7 m/uL [facility] Segmented neutrophils/100 WBC (Bld) 7.72 % [facility] WBC other (Bld) [#/Vol] 12.1 High [facility] Abs. Basophil 0.11 k/uL Normal 0.00-0.20 [facility] Comment on above: Performed By: #### C P, CDP, SALI #### [address] [place], [place] [id number] Sorter Lumber Straightener: Ziggy Hilario MD Abs.Imm.Granulocyte 0.05 k/uL Normal 0.00-0.30 [facility] Comment on above: Performed By: #### C P, CDP, SALI #### [address] [address] Sorter Lumber Straightener: Ziggy Hilario MD Abs.Neutrophil (Seg) 7.72 k/uL Normal 1.50-8.10 [facility] Comment on above: Performed By: #### C P, CDP, SALI #### [address] [place] [id number] Sorter Lumber Straightener: Ziggy Hilario MD Basophils/100 WBC (Bld) 1 % Normal 0-2 [facility] Comment on above: Performed By: #### C P, CDP, SALI #### [address] [place], [place] [address] Sorter Lumber Straightener: Ziggy Hilario MD Eosinophils (Bld) [#/Vol] 0.06 10*3/uL Normal 0.00-0.44 [facility] Comment on above: Performed By: #### C P, CDP, SALI #### [address] [place], [place] [address] Sorter Lumber Straightener: Ziggy Hilario MD Eosinophils/100 WBC (Bld) 1 % Normal 1-4 [facility] Comment on above: Performed By: #### C P, CDP, SALI #### [address] [place], [facility]83 Sorter Lumber Straightener: Ziggy Hilario MD Erythrocyte distribution width (RBC) [Ratio] 14.8 % High 11.8-14.4 [facility] Comment on above: Performed By: #### C P, CDP, SALI #### [facility] [address] [place], [place] [id number] Sorter Lumber Straightener: Ziggy Hilario MD Hematocrit (Bld) [Volume fraction] 38.6 % Low 40.7-50.3 [facility] Comment on above: Performed By: #### C P, CDP, SALI #### [facility] [address] [place], [facility]83 Sorter Lumber Straightener: Ziggy Hilario MD Hemoglobin (Bld) [Mass/Vol] 12.4 g/dL Low 13.0-17.0 [facility] Comment on above: Performed By: #### C P, CDP, SALI #### [address] [place], [facility]83 Sorter Lumber Straightener: Ziggy Hilario MD Immature granulocytes/100 WBC (Bld) 0 % Normal 0 [facility] Comment on above: Performed By: #### C P, CDP, SALI #### [address] [place], [facility]83 Sorter Lumber Straightener: Ziggy Hilario MD Lymphocytes (Bld) [#/Vol] 2.95 10*3/uL Normal 1.10-3.70 [facility] Comment on above: Performed By: #### C P, CDP, SALI #### [address] [place], [facility]83 Sorter Lumber Straightener: Ziggy Hilario MD Lymphocytes/100 WBC (Bld) 24 % Normal 24-43 [facility] Comment on above: Performed By: #### C P, CDP, SALI #### [facility] [address] [place] [address] Sorter Lumber Straightener: Ziggy Hilario MD MCH (RBC) [Entitic mass] 26.9 pg Normal 25.2-33.5 [facility] Comment on above: Performed By: #### C P, CDP, SALI #### [facility] [address] [place], [facility]83 Sorter Lumber Straightener: Ziggy Hilario MD MCHC (RBC) [Mass/Vol] 32.1 g/dL Normal 28.4-34.8 [facility] Comment on above: Performed By: #### C P, CDP, SALI #### [facility] [address] [place], [place] [address] Sorter Lumber Straightener: Ziggy Hilario MD MCV (RBC) [Entitic vol] 83.7 fL Normal 82.6-102.9 [facility] Comment on above: Performed By: #### C P, CDP, SALI #### [address] [place] [facility]83 Sorter Lumber Straightener: Ziggy Hilario MD Monocytes (Bld) [#/Vol] 1.19 10*3/uL Normal 0.10-1.20 [facility] Comment on above: Performed By: #### C P, CDP, SALI #### [address] [place], [facility]83 Sorter Lumber Straightener: Ziggy Hilario MD Monocytes/100 WBC (Bld) 10 % Normal 3-12 [facility] Comment on above: Performed By: #### C P, CDP, SALI #### [address] [place], [facility]83 Sorter Lumber Straightener: Ziggy Hilario MD Neutrophil (Seg) 64 % Normal 36-65 [facility] Comment on above: Performed By: #### C P, CDP, SALI #### [facility] [address] [place], [facility]83 Sorter Lumber Straightener: Ziggy Hilario MD NRBC Automated 0.0 per 100 WBC Normal 0.0 [facility] Comment on above: Performed By: #### C P, CDP, SALI #### [facility] [address] [place] [facility]83 Sorter Lumber Straightener: Ziggy Hilario MD Platelet mean volume (Bld) [Entitic vol] 9.4 fL Normal 8.1-13.5 [facility] Comment on above: Performed By: #### C P, CDP, SALI #### [facility] [address] [place] [address] Sorter Lumber Straightener: Ziggy Hilario MD Platelets (Bld) [#/Vol] 538 10*3/uL High 138-453 [facility] Comment on above: Performed By: #### C P, CDP, SALI #### [facility] [address] [place] [address] Sorter Lumber Straightener: Ziggy Hilario MD RBC (Bld) [#/Vol] 4.61 10*6/uL Normal 4.21-5.77 [facility] Comment on above: Performed By: #### C P, CDP, SALI #### [facility] [address] [place] [address] Sorter Lumber Straightener: Ziggy Hilario MD WBC (Bld) [#/Vol] 12.1 10*3/uL High 3.5-11.3 [facility] Comment on above: Performed By: #### C P, CDP, SALI #### [facility] [address] [place] [address] Sorter Lumber Straightener: Ziggy Hilario MD [facility] 12-05-2024 Albumin [Mass/Vol] 4.4 g/dL 3.5 - 5.2 g/dL [facility] Albumin/Globulin [Mass ratio] 1.8 {ratio} 1.0 - 2.5 [facility] ALP [Catalytic activity/Vol] 149 U/L High 40 - 129 U/L [facility] ALT [Catalytic activity/Vol] 47 U/L 10 - 50 U/L [facility] Anion gap [Moles/Vol] 10 mmol/L 9 - 16 mmol/L [facility] AST [Catalytic activity/Vol] 37 U/L 10 - 50 U/L [facility] Bilirubin [Mass/Vol] 0.2 mg/dL 0.00 - 1.20 mg/dL [facility] Calcium [Mass/Vol] 9.6 mg/dL 8.6 - 10. 4 mg/dL [facility] Chloride [Moles/Vol] 101 mmol/L 98 - 10 7 mmol/L [facility] CO2 [Moles/Vol] 27 mmol/L 20 - 31 mmol/L [facility] Creatinine [Mass/Vol] 0.9 mg/dL 0.70 - 1.20 mg/dL [facility] Est, Glom Filt Rate - PINF [facility] Comment on above: These results are [...] 146 mg/dL High 74 - 99 mg/dL [facility] Potassium [Moles/Vol] 4.3 mmol/L 3.7 - 5.3 mmol/L [facility] Protein [Mass/Vol] 6.7 g/dL 6.6 - 8.7 g/dL [facility] Sodium [Moles/Vol] 138 mmol/L 136 - 145 mmol/L [facility] Urea nitrogen [Mass/Vol] 10 mg/dL 6 - 20 mg/dL [facility] Urea nitrogen/Creatinine [Mass ratio] 11 mg/mg 9 - [address] [facility] [address] CHEST ABDOMEN PELVIS W CO NTRASTon [...] Fantasma Chanel MD 12/05/24 Final result Normal [facility] CT Chest and Abdomen and Pel vis [...] and screw construct. No evident hardware complication. [facility] RIS CONSOLIDATED Fantasma Chanel MD [...] to explain abdominal or right-sided rib pain. [facility] Radiology Study observation (narrative) [facility] CT Chest and Abdomen and Pel vis W contrast IVOrdered By: Fantasma Chanel on 12-05-2024 [facility] Work Phone: Comp Metabolic Profon 2024 Albumin [Mass/Vol] 4.4 g/dL Normal 3.5-5.2 [facility] Comment on above: Performed By: #### C P, CDP, SALI #### [facility] [address] [place] [address] [place] [address] Sorter Lumber Straightener: Ziggy Hilario MD Albumin/Glob Ratio 1.8 Normal 1.0-2.5 [facility] Comment on above: Performed By: #### C P, CDP, SALI #### [facility] [address] [place] [id number] [employer] Lumber Straightener: Ziggy Hilario MD Alkaline Phos 149 U/L High 40-129 [facility] Comment on above: Performed By: #### C P, CDP, SALI #### [facility] [address] [place], [place] [address] [employer] Straightener: Ziggy Hilario MD ALT [Catalytic activity/Vol] 47 U/L Normal 10-50 [facility] Comment on above: Performed By: #### C P, CDP, SALI #### [facility] [address] [place], [place] [address] [employer] Straightener: Ziggy Hilario MD Anion gap [Moles/Vol] 10 mmol/L Normal 9-16 [facility] Comment on above: Performed By: #### C P, CDP, SALI #### [facility] [address] [place], [place] [address] [employer] Straightener: Ziggy Hilario MD AST [Catalytic activity/Vol] 37 U/L Normal 10-50 [facility] Comment on above: Performed By: #### C P, CDP, SALI #### [facility] [address] [place], [place] [address] S[employer] Lumber Straightener: Ziggy Hilario MD Bilirubin [Mass/Vol] 0.2 mg/dL Normal 0.00-1.20 [facility] Comment on above: Performed By: #### C P, CDP, SALI #### [facility] [address] [place], [place] [address] [employer] Straightener: Ziggy Hilario MD BUN/CRE Ratio 11 Normal 9-20 [facility] Comment on above: Performed By: #### C P, CDP, SALI #### [facility] [address] [place], [place] [address] [employer] Straightener: Ziggy Hilario MD Calcium [Mass/Vol] 9.6 mg/dL Normal 8.6-10.4 [facility] Comment on above: Performed By: #### C P, CDP, SALI #### [facility] [address] [place], [place] [address] [employer] Straightener: Ziggy Hilario MD Chloride [Moles/Vol] 101 mmol/L Normal 98-107 [facility] Comment on above: Performed By: #### C P, CDP, SALI #### [facility] [address] [place], [place] [address] [employer] Straightener: Ziggy Hilario MD CO2 [Moles/Vol] 27 mmol/L Normal 20-31 [facility] Comment on above: Performed By: #### C P, CDP, SALI #### [facility] [address] [place], [place] [address] [employer] Straightener: Ziggy Hilario MD Creatinine [Mass/Vol] 0.9 mg/dL Normal 0.70-1.20 [facility] Comment on above: Performed By: #### C P, CDP, SALI #### [facility] [address] [place], [facility] [employer] Straightener: Ziggy Hilario MD GFR/1.73 sq M.predicted among non-blacks MDRD (S/P/Bld) [Vol rate/Area] mL/min/{1.73_m2} Normal >60 [facility] Comment on above: Result Comment: These [...] secretion. Performed By: #### C P, CDP, SALI #### [facility] [address] [place] [address] [employer] Straightener: Ziggy Hilario MD Glucose [Mass/Vol] 146 mg/dL High 74-99 [facility] Comment on above: Performed By: #### C P, CDP, SALI #### [facility] [address] [place] [address] [employer] Straightener: Ziggy Hilario MD Potassium [Moles/Vol] 4.3 mmol/L Normal 3.7-5.3 [facility] Comment on above: Performed By: #### C P, CDP, SALI #### [facility] [address] [place], [place] [address] [employer] Straightener: Ziggy Hilario MD Protein [Mass/Vol] 6.7 g/dL Normal 6.6-8.7 [facility] Comment on above: Performed By: #### C P, CDP, SALI #### [facility] [address] [place], [place] [address] S[employer] Lumber Straightener: Ziggy Hilario MD Sodium [Moles/Vol] 138 mmol/L Normal 136-145 [facility] Comment on above: Performed By: #### C P, CDP, SALI #### [facility] [address] [place], [place] [address] S[employer] Lumber Straightener: Ziggy Hilario MD Urea nitrogen [Mass/Vol] 10 mg/dL Normal 6-20 [facility] Comment on above: Performed By: #### C P, CDP, SALI #### [facility] [address] [place], [place] [address] [employer] Straightener: Ziggy Hilario MD Lactic Acidon 12-05-2024 Lactate (BldV) [Moles/Vol] 1.2 mmol/L 0.5 - 2.2 mmol/L [facility] Lactate [Moles/Vol] 1.2 mmol/L Normal 0.5-2.2 [facility] Comment on above: Performed By: #### C P, CDP, SALI #### [facility] [address] [place] [address] S[employer] Lumber Straightener: Ziggy Hilario MD Lipaseon 12-05-2024 Lipase [Catalytic activity/Vol] 7 U/L Low 13 - 60 U/L [facility] Lipase [Catalytic activity/Vol] 7 U/L Low 13-60 [facility] Comment on above: Performed By: #### C IRVING Abbott SALI #### [facility] [address] [place] [address] S[employer] Lumber Straightener: Ziggy Hilario MD No Panel Informationon 12-05 Interpretation and review of laboratory results Abnormal [facility] CNPNon 12-04-2024 CNPN Normal [facility] CNPNon 12-01-2024 CNPN Normal [facility] XR ELBOW LEFT (MIN 3 VIEWS)o n [...] Diana Curtis MD 12/01/24 Final result Normal [facility] XR HAND LEFT (MIN 3 VIEWS)on 12-01-2024 [...] Diana Curtis MD 12/01/24 Final result Normal [facility] CT THORACIC SPINE WO CONTRAS Ton 11-30-2024 [...] Bebeto Ring MD 11/30/24 Final result Normal [facility] CT Thoracic spine WO contras ton 11-30-2024 1. No acute osseous abnormality. 2. Fatty liver. [facility] RIS CONSOLIDATED EXAMINATION: CT OF THE THORACIC SPINE [...] the thoracic spine. SOFT TISSUES: Fatty liver. [facility] RIS Bebeto Wakefield MD - 11/30/2024 EXAMINATION: CT OF THE [...] No acute osseous abnormality. 2. Fatty liver. [facility] Radiology Study observation (narrative) [facility] CT Thoracic spine WO contras tOrdered By: Bebeto Ring on 11-30-2024 [facility] Work Phone: Cult,Urineon 11-28-2024 Cult,Urine Specimen Description .CLEAN CATCH URINE Special Requests Site: Urine Culture NO GROWTH Report Status FINAL 11/28/2024 [facility] Comment on above: Performed By: #### P RCAL #### [employer] [facility] [place] [address] Sorter Lumber Straightener: Reno Duron MD CNPNon 10-10-2024 CNPN [facility] CNNURSEon 10-07-2024 CNNURSE Normal [facility] CNPNon 10-02-2024 CNPN Normal [facility] CNOVon 09-30-2024 CNOV Normal [facility] CNPNon 09-26-2024 CNPN Normal [facility] CNPNon 09-24-2024 CNPN Normal [facility] CNPNon 09-15-2024 CNPN Normal [facility] CNPNon 09-09-2024 CNPN Normal [facility] CNPNon 09-05-2024 CNPN Normal [facility] CONSULT PROGon 09-04-2024 CONSULT PROG Normal [facility] Basic metabolic 2000 panelon 09-03-2024 Anion gap [Moles/Vol] 11 mmol/L Normal 8-15 [facility] Comment on above: Order Comment: Speci men Type: BLOOD SPECIMENOrdering Facility: [facility] Address: [address] [place] [address] Performed By: #### 2 4321-2, 2776-10, ####[facility] [id number] [place] [address] [place] Calcium [Mass/Vol] 8.8 mg/dL Normal 8.5-10.2 [facility] Comment on above: Order Comment: Speci men Type: BLOOD SPECIMENOrdering Facility: [facility] Address: [address] [place] [address] Performed By: #### 2 4321-2, 2776-10, ####[facility] [id number] [place] [address] [place] Chloride [Moles/Vol] 99 mmol/L Normal 98-107 [facility] Comment on above: Order Comment: Speci men Type: BLOOD SPECIMENOrdering Facility: [facility] Address: [address] [place] [address] Performed By: #### 2 4321-2, 2776-10, ####[facility] [id number] [address] [address] [place] CO2 [Moles/Vol] 25 mmol/L Normal 22-30 [facility] Comment on above: Order Comment: Speci men Type: BLOOD SPECIMENOrdering Facility: [facility] Address: [address] [place] [address] Performed By: #### 2 4321-2, 2776-10, ####[facility] [id number] [address] [address] [place] Creatinine [Mass/Vol] 0.82 mg/dL Normal 0.73-1.22 [facility] Comment on above: Order Comment: Theo narvaez Type: BLOOD SPECIMENOrdering Facility: [facility] Address: [address] [place] [address] Performed By: #### 2 4321-2, 7, ####[facility] [id number] [place] [address] [place] Creatinine and Glomerular filtration rate.predicted panel (S/P/Bld) 104 mL/min/1.73m??? Normal >=60 [facility] Comment on above: Order Comment: Theo narvaez Type: BLOOD SPECIMENOrdering Facility: [facility] Address: [address] [place] [address] Result Comment: Marisa mated Glomerular Filtration Rate [...] actual GFR. Performed By: #### 2 4321-2, 7, ####[facility] [id number] [place] [id number] [place] Glucose [Mass/Vol] 227 mg/dL High 74-99 [facility] Comment on above: Order Comment: Speccurly narvaez Type: BLOOD SPECIMENOrdering Facility: [facility] Address: [address] [place] [address] Result Comment: The [place] [employer] (ADA) provides guidance for cutoff [...] Standards of Medical Care in Diabetes 2016, [place] [employer]. Diabetes Care. 2016.39(Suppl 1). Performed By: #### 2 4321-2, 2776-10, ####[facility] [id number] [place] [address] [place] Potassium [Moles/Vol] 4.3 mmol/L Normal 3.7-5.1 [facility] Comment on above: Order Comment: Theo narvaez Type: BLOOD SPECIMENOrdering Facility: [facility] Address: [address] [place] [address] Performed By: #### 2 4321-2, 2776-10, ####[facility] [id number] [place] [id number] [place] Sodium [Moles/Vol] 135 mmol/L Low 136-144 [facility] Comment on above: Order Comment: Theo narvaez Type: BLOOD SPECIMENOrdering Facility: [facility] Address: [address] [place] [address] Performed By: #### 2 4321-2, 2776-10, ####[facility] [id number] [place] [id number] [place] Urea nitrogen [Mass/Vol] 9 mg/dL Normal 9-24 [facility] Comment on above: Order Comment: Theo narvaez Type: BLOOD SPECIMENOrdering Facility: [facility] Address: [address] [place] [address] Performed By: #### 2 4321-2, 2776-10, ####[facility] [id number] [address] [address] [place] CASE MANAGEMon 11--2024 CASE MANAGEM Normal [facility] CBC panel Auto (Bld)on 09-03 Erythrocyte distribution width (RBC) [Ratio] 13.2 % Normal 11.5-15.0 [facility] Comment on above: Order Comment: Speci men Type: BLOOD SPECIMENOrdering Facility: [facility] Address: [address] [place] [address] Performed By: #### 5 8410-2 ####[facility] [id number] [place] [address] [place] Hematocrit (Bld) [Volume fraction] 25.9 % Low 39.0-51.0 [facility] Comment on above: Order Comment: Speci men Type: BLOOD SPECIMENOrdering Facility: [facility] Address: [address] [place] [address] Performed By: #### 5 8410-2 ####[facility] [id number] [place] [address] [place] Hemoglobin (Bld) [Mass/Vol] 8.3 g/dL Low 13.0-17.0 [facility] Comment on above: Order Comment: Speci men Type: BLOOD SPECIMENOrdering Facility: [facility] Address: [address] [place] [address] Performed By: #### 5 8410-2 ####[facility] [id number] [place] [address] [place] MCH (RBC) [Entitic mass] 29.1 pg Normal 26.0-34.0 [facility] Comment on above: Order Comment: Speci men Type: BLOOD SPECIMENOrdering Facility: [facility] Address: [address] [place] [address] Performed By: #### 5 8410-2 ####[facility] [id number] [place] [address] [place] MCHC (RBC) [Mass/Vol] 32.0 g/dL Normal 30.5-36.0 [facility] Comment on above: Order Comment: Speci men Type: BLOOD SPECIMENOrdering Facility: [facility] Address: [address] [place] [address] Performed By: #### 5 8410-2 ####[facility] [id number] [place] [address] [place] MCV (RBC) [Entitic vol] 90.9 fL Normal 80.0-100.0 [facility] Comment on above: Order Comment: Speci men Type: BLOOD SPECIMENOrdering Facility: [facility] Address: [address] [place] [address] Performed By: #### 5 8410-2 ####[facility] [id number] [place] [address] [place] Nucleated RBC (Bld) [#/Vol] 0.03 10*3/uL High <0.01 [facility] Comment on above: Order Comment: Speci men Type: BLOOD SPECIMENOrdering Facility: [facility] Address: [address] [place] [address] Performed By: #### 5 8410-2 ####[facility] [id number] [place] [address] [place] Platelet mean volume (Bld) [Entitic vol] 9.4 fL Normal 9.0-12.7 [facility] Comment on above: Order Comment: Speci men Type: BLOOD SPECIMENOrdering Facility: [facility] Address: [address] [place] [address] Performed By: #### 5 8410-2 ####[facility] [id number] [place] [address] [place] Platelets (Bld) [#/Vol] 548 10*3/uL High 150-400 [facility] Comment on above: Order Comment: Speci men Type: BLOOD SPECIMENOrdering Facility: [facility] Address: [address] [place] [address] Performed By: #### 5 8410-2 ####[facility] [id number] [place] [address] [place] RBC (Bld) [#/Vol] 2.85 10*6/uL Low 4.20-6.00 [facility] Comment on above: Order Comment: Speci men Type: BLOOD SPECIMENOrdering Facility: [facility] Address: [address] [place] [address] Performed By: #### 5 8410-2 ####[facility] [id number] [place] [address] [place] WBC (Bld) [#/Vol] 13.25 10*3/uL High 3.70-11.00 [facility] Comment on above: Order Comment: Speci men Type: BLOOD SPECIMENOrdering Facility: [facility] Address: [address] [place] [address] Performed By: #### 5 8410-2 ####[facility] [id number] [place] [address] [place] CNDSon 09-03-2024 CNDS Normal [facility] CONSULT PROGon 09-03-2024 CONSULT PROG Normal [facility] Magnesium SerPl-mCncon 09-03 Magnesium [Mass/Vol] 1.9 mg/dL Normal 1.7-2.3 [facility] Comment on above: Order Comment: Speci men Type: BLOOD SPECIMENOrdering Facility: [facility] Address: [address] [place] [address] Performed By: #### 2 4321-2, 2777-1, 04854-9 ####[facility] [id number] [place] [address] [place] NUTRITIONon 09-03-2024 NUTRITION Normal [facility] PT EDon 11-13-2024 PT ED Normal [facility] PT ED Normal [facility] Phosphate SerPl-mCncon 09-03 Phosphate [Mass/Vol] 2.2 mg/dL Low 2.7-4.8 [facility] Comment on above: Order Comment: Speci men Type: BLOOD SPECIMENOrdering Facility: [facility] Address: [address] [place] [address] Performed By: #### 2 4321-2, 2777-1, 10909-0 ####[facility] [id number] [address] [address] [place] Basic metabolic 2000 panelon 09-02-2024 Anion gap [Moles/Vol] 13 mmol/L Normal 8-15 [facility] Comment on above: Order Comment: Speci men Type: BLOOD SPECIMENOrdering Facility: [facility] Address: [address] [place] [address] Performed By: #### 1 9123-9, 2777-1, 18358-5 ####[facility] [id number] [place] [address] [place] Calcium [Mass/Vol] 8.6 mg/dL Normal 8.5-10.2 [facility] Comment on above: Order Comment: Speci men Type: BLOOD SPECIMENOrdering Facility: [facility] Address: [address] [place], [place] [address] Performed By: #### 1 9123-9, 2777-1, 10082-5 ####[facility] [id number] [address] [address] [place] Chloride [Moles/Vol] 101 mmol/L Normal 98-107 [facility] Comment on above: Order Comment: Speci men Type: BLOOD SPECIMENOrdering Facility: [facility] Address: [address] [place], [place] [address] Performed By: #### 1 9123-9, 2777-1, 89935-4 ####[facility] [id number] [place] [address] [place] CO2 [Moles/Vol] 25 mmol/L Normal 22-30 [facility] Comment on above: Order Comment: Theo narvaez Type: BLOOD SPECIMENOrdering Facility: [facility] Address: [address] [place] [address] Performed By: #### 1 9123-9, 2777-1, 38302-3 ####[facility] [id number] [place] [address] [place] Creatinine [Mass/Vol] 0.84 mg/dL Normal 0.73-1.22 [facility] Comment on above: Order Comment: Speci men Type: BLOOD SPECIMENOrdering Facility: [facility] Address: [address] [place] [address] Performed By: #### 1 9123-9, 2777-, 13390-3 ####[facility] [id number] [place] [address] [place] Creatinine and Glomerular filtration rate.predicted panel (S/P/Bld) 104 mL/min/1.73m??? Normal >=60 [facility] Comment on above: Order Comment: Theo narvaez Type: BLOOD SPECIMENOrdering Facility: [facility] Address: [address] [place] [address] Result Comment: Marisa mated Glomerular Filtration Rate [...] GFR. Performed By: #### 1 9123-9, 2777-, 02581-2 ####[facility] [id number] [place] [id number] [place] Glucose [Mass/Vol] 119 mg/dL High 74-99 [facility] Comment on above: Order Comment: Theo narvaez Type: BLOOD SPECIMENOrdering Facility: [facility] Address: [address] [place] [address] Result Comment: The [place] [employer] (ADA) provides guidance for cutoff [...] Standards of Medical Care in Diabetes 2016, [place] [employer]. Diabetes Care. 2016.39(Suppl 1). Performed By: #### 1 9123-9, 2777-1, 30816-0 ####[facility] [id number] [place] [address] [place] Potassium [Moles/Vol] 3.4 mmol/L Low 3.7-5.1 [facility] Comment on above: Order Comment: Theo narvaez Type: BLOOD SPECIMENOrdering Facility: [facility] Address: [address] [place] [address] Performed By: #### 1 9123-9, 2777-1, 49626-4 ####[facility] [id number] [place] [address] [place] Sodium [Moles/Vol] 139 mmol/L Normal 136-144 [facility] Comment on above: Order Comment: Theo narvaez Type: BLOOD SPECIMENOrdering Facility: [facility] Address: [address] [place] [address] Performed By: #### 1 9123-9, 2777-1, 76449-1 ####[facility] [id number] [place] [address] [place] Urea nitrogen [Mass/Vol] 13 mg/dL Normal 9-24 [facility] Comment on above: Order Comment: Speci men Type: BLOOD SPECIMENOrdering Facility: [facility] Address: [address] [place] [address] Performed By: #### 1 9123-9, 2777-1, 92334-1 ####[facility] [id number] [place] [address] [place] CBC panel Auto (Bld)on 09-02 Erythrocyte distribution width (RBC) [Ratio] 13.0 % Normal 11.5-15.0 [facility] Comment on above: Order Comment: Speci men Type: BLOOD SPECIMENOrdering Facility: [facility] Address: [address] [place] [address] Performed By: #### 5 8410-2 ####[facility] [id number] [address] [place] Hematocrit (Bld) [Volume fraction] 25.0 % Low 39.0-51.0 [facility] Comment on above: Order Comment: Speci men Type: BLOOD SPECIMENOrdering Facility: [facility] Address: [address] [place] [address] Performed By: #### 5 8410-2 ####[facility] [id number] [place] [address] [place] Hemoglobin (Bld) [Mass/Vol] 8.0 g/dL Low 13.0-17.0 [facility] Comment on above: Order Comment: Speci men Type: BLOOD SPECIMENOrdering Facility: [facility] Address: [address] [place] [address] Performed By: #### 5 8410-2 ####[facility] [id number] [place] [address] [place] MCH (RBC) [Entitic mass] 28.9 pg Normal 26.0-34.0 [facility] Comment on above: Order Comment: Speci men Type: BLOOD SPECIMENOrdering Facility: [facility] Address: [address] [place] [address] Performed By: #### 5 8410-2 ####[facility] [id number] [place] [address] [place] MCHC (RBC) [Mass/Vol] 32.0 g/dL Normal 30.5-36.0 [facility] Comment on above: Order Comment: Speci men Type: BLOOD SPECIMENOrdering Facility: [facility] Address: [address] [place] [address] Performed By: #### 5 8410-2 ####[facility] [id number] [place] [address] [place] MCV (RBC) [Entitic vol] 90.3 fL Normal 80.0-100.0 [facility] Comment on above: Order Comment: Speci men Type: BLOOD SPECIMENOrdering Facility: [facility] Address: [address] [place] [address] Performed By: #### 5 8410-2 ####[facility] [id number] [place] [address] [place] Nucleated RBC (Bld) [#/Vol] 0.04 10*3/uL High <0.01 [facility] Comment on above: Order Comment: Speci men Type: BLOOD SPECIMENOrdering Facility: [facility] Address: [address] [place] [address] Performed By: #### 5 8410-2 ####[facility] [id number] [place] [address] [place] Platelet mean volume (Bld) [Entitic vol] 9.3 fL Normal 9.0-12.7 [facility] Comment on above: Order Comment: Speci men Type: BLOOD SPECIMENOrdering Facility: [facility] Address: [address] [place] [address] Performed By: #### 5 8410-2 ####[facility] [id number] [address] [address] [place] Platelets (Bld) [#/Vol] 435 10*3/uL High 150-400 [facility] Comment on above: Order Comment: Speci men Type: BLOOD SPECIMENOrdering Facility: [facility] Address: [address] [place] [address] Performed By: #### 5 8410-2 ####[facility] [id number] [place] [address] [place] RBC (Bld) [#/Vol] 2.77 10*6/uL Low 4.20-6.00 [facility] Comment on above: Order Comment: Speci men Type: BLOOD SPECIMENOrdering Facility: [facility] Address: [address] [place] [address] Performed By: #### 5 8410-2 ####[facility] [id number] [place] [address] [place] WBC (Bld) [#/Vol] 10.80 10*3/uL Normal 3.70-11.00 [facility] Comment on above: Order Comment: Speci men Type: BLOOD SPECIMENOrdering Facility: [facility] Address: [address] [place] [address] Performed By: #### 5 8410-2 ####[facility] [id number] [place] [address] [place] CONSULT PROGon 09-02-2024 CONSULT PROG Normal [facility] Magnesium SerPl-mCncon 09-02 Magnesium [Mass/Vol] 1.9 mg/dL Normal 1.7-2.3 [facility] Comment on above: Order Comment: Speci men Type: BLOOD SPECIMENOrdering Facility: [facility] Address: [address] [place] [address] Performed By: #### 1 9123-9, 2776-, 46433-2 ####[facility] [id number] [address] [address] [place] Phosphate SerPl-mCncon 09-02 Phosphate [Mass/Vol] 2.5 mg/dL Low 2.7-4.8 [facility] Comment on above: Order Comment: Speci men Type: BLOOD SPECIMENOrdering Facility: [facility] Address: [address] [place] [address] Performed By: #### 1 9123-9, 2776-, 98167-5 ####[facility] [id number] [place] [address] [place] Basic metabolic 2000 panelon 09-01-2024 Anion gap [Moles/Vol] 14 mmol/L Normal 8-15 [facility] Comment on above: Order Comment: Speci men Type: BLOOD SPECIMENOrdering Facility: [facility] Address: [address] [place] [address] Performed By: #### 2 4321-2, , 2776-10 ####[facility] [id number] [place] [address] [place] Calcium [Mass/Vol] 8.4 mg/dL Low 8.5-10.2 [facility] Comment on above: Order Comment: Speci men Type: BLOOD SPECIMENOrdering Facility: [facility] Address: [address] [place] [address] Performed By: #### 2 4321-2, 74757-3, 2776-10 ####[facility] [id number] [place] [id number] [place] Chloride [Moles/Vol] 102 mmol/L Normal 98-107 [facility] Comment on above: Order Comment: Speci men Type: BLOOD SPECIMENOrdering Facility: [facility] Address: [address] [place] [address] Performed By: #### 2 4321-2, , 2776-10 ####[facility] [id number] [place] [address] [place] CO2 [Moles/Vol] 24 mmol/L Normal 22-30 [facility] Comment on above: Order Comment: Speci men Type: BLOOD SPECIMENOrdering Facility: [facility] Address: [address] [place] [address] Performed By: #### 2 4321-2, , 2776-10 ####[facility] [id number] [place] [address] [place] Creatinine [Mass/Vol] 0.73 mg/dL Normal 0.73-1.22 [facility] Comment on above: Order Comment: Speci men Type: BLOOD SPECIMENOrdering Facility: [facility] Address: [address] [place] [address] Performed By: #### 2 432-2, , 2776-10 ####[facility] [id number] [place] [address] [place] Creatinine and Glomerular filtration rate.predicted panel (S/P/Bld) 108 mL/min/1.73m??? Normal >=60 [facility] Comment on above: Order Comment: Speci men Type: BLOOD SPECIMENOrdering Facility: [facility] Address: [address] [place] [address] Result Comment: Marisa mated Glomerular Filtration Rate [...] Performed By: #### 2 4321-2, , 2776-10 ####[facility] [id number] [place] [address] [place] Glucose [Mass/Vol] 158 mg/dL High 74-99 [facility] Comment on above: Order Comment: Speci men Type: BLOOD SPECIMENOrdering Facility: [facility] Address: [address] [place] [address] Result Comment: The [place] [employer] (ADA) provides guidance for cutoff [...] Standards of Medical Care in Diabetes 2016, [place] [employer]. Diabetes Care. 2016.39(Suppl 1). Performed By: #### 2 4321-2, , 2776-10 ####[facility] [id number] [place] [address] [place] Potassium [Moles/Vol] 4.0 mmol/L Normal 3.7-5.1 [facility] Comment on above: Order Comment: Speci men Type: BLOOD SPECIMENOrdering Facility: [facility] Address: [address] [place] [address] Performed By: #### 2 4321-2, , 2776-10 ####[facility] [id number] [place] [address] [place] Sodium [Moles/Vol] 140 mmol/L Normal 136-144 [facility] Comment on above: Order Comment: Speci men Type: BLOOD SPECIMENOrdering Facility: [facility] Address: [address] [place] [address] Performed By: #### 2 4321-2, , 2776-10 ####[facility] [id number] [place] [address] [place] Urea nitrogen [Mass/Vol] 14 mg/dL Normal 9-24 [facility] Comment on above: Order Comment: Speci men Type: BLOOD SPECIMENOrdering Facility: [facility] Address: [address] [place] [address] Performed By: #### 2 4321-2, 45200-6, 2777-1 ####[facility] [id number] [place] [address] [place] CASE MANAGEMon 09-01-2024 CASE MANAGEM Normal [facility] CBC panel Auto (Bld)on 09-01 Erythrocyte distribution width (RBC) [Ratio] 13.1 % Normal 11.5-15.0 [facility] Comment on above: Order Comment: Speci men Type: BLOOD SPECIMENOrdering Facility: [facility] Address: [address] [place] [address] Performed By: #### 5 8410-2 ####[facility] [id number] [place] [address] [place] Hematocrit (Bld) [Volume fraction] 24.5 % Low 39.0-51.0 [facility] Comment on above: Order Comment: Speci men Type: BLOOD SPECIMENOrdering Facility: [facility] Address: [address] [place] [address] Performed By: #### 5 8410-2 ####[facility] [id number] [place] [id number] [place] Hemoglobin (Bld) [Mass/Vol] 7.8 g/dL Low 13.0-17.0 [facility] Comment on above: Order Comment: Speci men Type: BLOOD SPECIMENOrdering Facility: [facility] Address: [address] [place] [address] Performed By: #### 5 8410-2 ####[facility] [id number] [address] [place] MCH (RBC) [Entitic mass] 29.2 pg Normal 26.0-34.0 [facility] Comment on above: Order Comment: Speci men Type: BLOOD SPECIMENOrdering Facility: [facility] Address: [address] [place] [address] Performed By: #### 5 8410-2 ####[facility] [id number] [place] [address] [place] MCHC (RBC) [Mass/Vol] 31.8 g/dL Normal 30.5-36.0 [facility] Comment on above: Order Comment: Speci men Type: BLOOD SPECIMENOrdering Facility: [facility] Address: [address] [place] [address] Performed By: #### 5 8410-2 ####[facility] [id number] [place] [address] [place] MCV (RBC) [Entitic vol] 91.8 fL Normal 80.0-100.0 [facility] Comment on above: Order Comment: Speci men Type: BLOOD SPECIMENOrdering Facility: [facility] Address: [address] [place] [address] Performed By: #### 5 8410-2 ####[facility] [id number] [place] [address] [place] Nucleated RBC (Bld) [#/Vol] 10*3/uL Normal <0.01 [facility] Comment on above: Order Comment: Speci men Type: BLOOD SPECIMENOrdering Facility: [facility] Address: [address] [place] [address] Performed By: #### 5 8410-2 ####[facility] [id number] [place] [address] [place] Platelet mean volume (Bld) [Entitic vol] 9.6 fL Normal 9.0-12.7 [facility] Comment on above: Order Comment: Speci men Type: BLOOD SPECIMENOrdering Facility: [facility] Address: [address] [place] [address] Performed By: #### 5 8410-2 ####[facility] [id number] [place] [address] [place] Platelets (Bld) [#/Vol] 349 10*3/uL Normal 150-400 [facility] Comment on above: Order Comment: Speci men Type: BLOOD SPECIMENOrdering Facility: [facility] Address: [address] [place] [address] Performed By: #### 5 8410-2 ####[facility] [id number] [place] [address] [place] RBC (Bld) [#/Vol] 2.67 10*6/uL Low 4.20-6.00 [facility] Comment on above: Order Comment: Speci men Type: BLOOD SPECIMENOrdering Facility: [facility] Address: [address] [place] [address] Performed By: #### 5 8410-2 ####[facility] [id number] [place] [address] [place] WBC (Bld) [#/Vol] 9.51 10*3/uL Normal 3.70-11.00 [facility] Comment on above: Order Comment: Speci men Type: BLOOD SPECIMENOrdering Facility: [facility] Address: [address] [place] [address] Performed By: #### 5 8410-2 ####[facility] [id number] [place] [address] [place] CONSULT PROGon 09-01-2024 CONSULT PROG Normal [facility] Magnesium SerPl-mCncon 09-01 Magnesium [Mass/Vol] 1.9 mg/dL Normal 1.7-2.3 [facility] Comment on above: Order Comment: Speci men Type: BLOOD SPECIMENOrdering Facility: [facility] Address: [address] [place] [address] Performed By: #### 2 4321-2, , 2776-10 ####[facility] [id number] [address] [address] [place] Phosphate SerPl-mCncon 09-01 Phosphate [Mass/Vol] 2.6 mg/dL Low 2.7-4.8 [facility] Comment on above: Order Comment: Speci men Type: BLOOD SPECIMENOrdering Facility: [facility] Address: [address] [place] [address] Performed By: #### 2 4321-2, , 2776-10 ####[facility] [id number] [place] [address] [place] THERAPY NTon 09-01-2024 THERAPY NT Normal [facility] Basic metabolic 2000 panelon 08-31-2024 Anion gap [Moles/Vol] 12 mmol/L Normal 8-15 [facility] Comment on above: Order Comment: Speci men Type: BLOOD SPECIMENOrdering Facility: [facility] Address: [address] [place] [address] Performed By: #### 2 777-1, , ####[facility] [id number] [place] [id number] [place] Calcium [Mass/Vol] 8.8 mg/dL Normal 8.5-10.2 [facility] Comment on above: Order Comment: Speci men Type: BLOOD SPECIMENOrdering Facility: [facility] Address: [address] [place] [address] Performed By: #### 2 777-1, 48346-8, ####[facility] [id number] [place] [address] [place] Chloride [Moles/Vol] 100 mmol/L Normal 98-107 [facility] Comment on above: Order Comment: Speci men Type: BLOOD SPECIMENOrdering Facility: [facility] Address: [address] [place] [address] Performed By: #### 2 777-1, 76088-2, ####[facility] [id number] [place] [address] [place] CO2 [Moles/Vol] 29 mmol/L Normal 22-30 [facility] Comment on above: Order Comment: Speci men Type: BLOOD SPECIMENOrdering Facility: [facility] Address: [address] [place] [address] Performed By: #### 2 777-1, 97210-0, ####[facility] [id number] [place] [address] [place] Creatinine [Mass/Vol] 0.80 mg/dL Normal 0.73-1.22 [facility] Comment on above: Order Comment: Speci men Type: BLOOD SPECIMENOrdering Facility: [facility] Address: [address] [place] [address] Performed By: #### 2 777-1, 76308-0, ####[facility] [id number] [place] [address] [place] Creatinine and Glomerular filtration rate.predicted panel (S/P/Bld) 105 mL/min/1.73m??? Normal >=60 [facility] Comment on above: Order Comment: Speci men Type: BLOOD SPECIMENOrdering Facility: [facility] Address: [address] [place] [address] Result Comment: Marisa mated Glomerular Filtration Rate [...] actual GFR. Performed By: #### 2 777-1, 60349-3, ####[facility] [id number] [place] [id number] [place] Glucose [Mass/Vol] 190 mg/dL High 74-99 [facility] Comment on above: Order Comment: Speci men Type: BLOOD SPECIMENOrdering Facility: [facility] Address: [address] [place] [address] Result Comment: The [place] [employer] (ADA) provides guidance for cutoff [...] Standards of Medical Care in Diabetes 2016, [place] [employer]. Diabetes Care. 2016.39(Suppl 1). Performed By: #### 2 777-1, , ####[facility] [id number] [place] [id number] [place] Potassium [Moles/Vol] 4.0 mmol/L Normal 3.7-5.1 [facility] Comment on above: Order Comment: Speci men Type: BLOOD SPECIMENOrdering Facility: [facility] Address: [address] [place] [address] Performed By: #### 2 777-1, 76786-3, ####[facility] [id number] [place] [id number] [place] Sodium [Moles/Vol] 141 mmol/L Normal 136-144 [facility] Comment on above: Order Comment: Speci men Type: BLOOD SPECIMENOrdering Facility: [facility] Address: [address] [place] [address] Performed By: #### 2 777-1, 74820-4, ####[facility] [id number] [place] [address] [place] Urea nitrogen [Mass/Vol] 12 mg/dL Normal 9-24 [facility] Comment on above: Order Comment: Speci men Type: BLOOD SPECIMENOrdering Facility: [facility] Address: [address] [place] [address] Performed By: #### 2 777-1, 95499-7, ####[facility] [id number] [place] [address] [place] CBC panel Auto (Bld)on 08-31 Erythrocyte distribution width (RBC) [Ratio] 13.1 % Normal 11.5-15.0 [facility] Comment on above: Order Comment: Speci men Type: BLOOD SPECIMENOrdering Facility: [facility] Address: [address] [place] [address] Performed By: #### 5 8410-2 ####[facility] [id number] [place] [address] [place] Hematocrit (Bld) [Volume fraction] 25.9 % Low 39.0-51.0 [facility] Comment on above: Order Comment: Speci men Type: BLOOD SPECIMENOrdering Facility: [facility] Address: [address] [place] [address] Performed By: #### 5 8410-2 ####[facility] [id number] [place] [address] [place] Hemoglobin (Bld) [Mass/Vol] 8.3 g/dL Low 13.0-17.0 [facility] Comment on above: Order Comment: Speci men Type: BLOOD SPECIMENOrdering Facility: [facility] Address: [address] [place] [address] Performed By: #### 5 8410-2 ####[facility] [id number] [place] [address] [place] MCH (RBC) [Entitic mass] 29.4 pg Normal 26.0-34.0 [facility] Comment on above: Order Comment: Speci men Type: BLOOD SPECIMENOrdering Facility: [facility] Address: [address] [place] [address] Performed By: #### 5 8410-2 ####[facility] [id number] [place] [address] [place] MCHC (RBC) [Mass/Vol] 32.0 g/dL Normal 30.5-36.0 [facility] Comment on above: Order Comment: Speci men Type: BLOOD SPECIMENOrdering Facility: [facility] Address: [address] [place] [address] Performed By: #### 5 8410-2 ####[facility] [id number] [place] [address] [place] MCV (RBC) [Entitic vol] 91.8 fL Normal 80.0-100.0 [facility] Comment on above: Order Comment: Speci men Type: BLOOD SPECIMENOrdering Facility: [facility] Address: [address] [place] [address] Performed By: #### 5 8410-2 ####[facility] [id number] [place] [address] [place] Nucleated RBC (Bld) [#/Vol] 10*3/uL Normal <0.01 [facility] Comment on above: Order Comment: Speci men Type: BLOOD SPECIMENOrdering Facility: [facility] Address: [address] [place] [address] Performed By: #### 5 8410-2 ####[facility] [id number] [place] [address] [place] Platelet mean volume (Bld) [Entitic vol] 9.6 fL Normal 9.0-12.7 [facility] Comment on above: Order Comment: Speci men Type: BLOOD SPECIMENOrdering Facility: [facility] Address: [address] [place] [address] Performed By: #### 5 8410-2 ####[facility] [id number] [place] [address] [place] Platelets (Bld) [#/Vol] 277 10*3/uL Normal 150-400 [facility] Comment on above: Order Comment: Speci men Type: BLOOD SPECIMENOrdering Facility: [facility] Address: [address] [place] [address] Performed By: #### 5 8410-2 ####[facility] [id number] [place] [address] [place] RBC (Bld) [#/Vol] 2.82 10*6/uL Low 4.20-6.00 [facility] Comment on above: Order Comment: Speci men Type: BLOOD SPECIMENOrdering Facility: [facility] Address: [address] [place] [address] Performed By: #### 5 8410-2 ####[facility] [id number] [place] [address] [place] WBC (Bld) [#/Vol] 14.25 10*3/uL High 3.70-11.00 [facility] Comment on above: Order Comment: Speci men Type: BLOOD SPECIMENOrdering Facility: [facility] Address: [address] [place] [address] Performed By: #### 5 8410-2 ####[facility] [id number] [place] [address] [place] CONSULT PROGon 08-31-2024 CONSULT PROG Normal [facility] Magnesium SerPl-mCncon 08-31 Magnesium [Mass/Vol] 2.0 mg/dL Normal 1.7-2.3 [facility] Comment on above: Order Comment: Speci men Type: BLOOD SPECIMENOrdering Facility: [facility] Address: [address] [place] [address] Performed By: #### 2 777-1, 92175-1, ####[facility] [id number] [place] [address] [place] Phosphate SerPl-mCncon 08-31 Phosphate [Mass/Vol] 2.8 mg/dL Normal 2.7-4.8 [facility] Comment on above: Order Comment: Speci men Type: BLOOD SPECIMENOrdering Facility: [facility] Address: [address] [place] [address] Performed By: #### 2 777-1, 49172-9, ####[facility] [id number] [place] [address] [place] C peptide SerPl-mCncon 08-30 C peptide [Mass/Vol] 0.2 ng/mL Low 1.1-4.4 [facility] Comment on above: Order Comment: Speci men Type: BLOOD SPECIMENOrdering Facility: [facility] Address: [address] [place] [address] Performed By: #### 1 986-9 ####[facility] [id number] [place] [id number] [place] CBC W Auto Differential pane l (Bld)on 08-30-2024 Basophils (Bld) [#/Vol] 0.05 10*3/uL Normal <0.11 [facility] Comment on above: Order Comment: Speci men Type: BLOOD SPECIMENOrdering Facility: [facility] Address: [address] [place] [address] Performed By: #### 5 7021-8 ####[facility] [id number] [place] [address] [place] Basophils/100 WBC (Bld) 0.3 % Normal [facility] Comment on above: Order Comment: Speci men Type: BLOOD SPECIMENOrdering Facility: [facility] Address: [address] [place] [address] Performed By: #### 5 7021-8 ####[facility] [id number] [place] [address] [place] Differential cell count method Nom (Bld) Auto Normal [facility] Comment on above: Order Comment: Speci men Type: BLOOD SPECIMENOrdering Facility: [facility] Address: [address] [place] [address] Performed By: #### 5 7021-8 ####[facility] [id number] [place] [address] [place] Eosinophils (Bld) [#/Vol] 0.05 10*3/uL Normal <0.46 [facility] Comment on above: Order Comment: Speci men Type: BLOOD SPECIMENOrdering Facility: [facility] Address: [address] [place] [address] Performed By: #### 5 7021-8 ####[facility] [id number] [place] [address] [place] Eosinophils/100 WBC (Bld) 0.3 % Normal [facility] Comment on above: Order Comment: Speci men Type: BLOOD SPECIMENOrdering Facility: [facility] Address: [address] [place] [address] Performed By: #### 5 7021-8 ####[facility] [id number] [place] [address] [place] Erythrocyte distribution width (RBC) [Ratio] 13.1 % Normal 11.5-15.0 [facility] Comment on above: Order Comment: Speci men Type: BLOOD SPECIMENOrdering Facility: [facility] Address: [address] [place] [address] Performed By: #### 5 7021-8 ####[facility] [id number] [place] [address] [place] Hematocrit (Bld) [Volume fraction] 21.9 % Low 39.0-51.0 [facility] Comment on above: Order Comment: Speci men Type: BLOOD SPECIMENOrdering Facility: [facility] Address: [address] [place] [address] Performed By: #### 5 7021-8 ####[facility] [id number] [place] [address] [place] Hemoglobin (Bld) [Mass/Vol] 7.2 g/dL Low 13.0-17.0 [facility] Comment on above: Order Comment: Speci men Type: BLOOD SPECIMENOrdering Facility: [facility] Address: [address] [place] [address] Performed By: #### 5 7021-8 ####[facility] [id number] [place] [address] [place] Immature granulocytes (Bld) [#/Vol] 0.06 10*3/uL Normal <0.10 [facility] Comment on above: Order Comment: Speci men Type: BLOOD SPECIMENOrdering Facility: [facility] Address: [address] [place] [address] Performed By: #### 5 7021-8 ####[facility] [id number] [place] [address] [place] Immature granulocytes/100 WBC (Bld) 0.4 % Normal [facility] Comment on above: Order Comment: Speci men Type: BLOOD SPECIMENOrdering Facility: [facility] Address: [address] [place] [address] Performed By: #### 5 7021-8 ####[facility] [id number] [place] [address] [place] Lymphocytes (Bld) [#/Vol] 1.59 10*3/uL Normal 1.00-4.00 [facility] Comment on above: Order Comment: Speci men Type: BLOOD SPECIMENOrdering Facility: [facility] Address: [address] [place] [address] Performed By: #### 5 7021-8 ####[facility] [id number] [place] [address] [place] Lymphocytes/100 WBC (Bld) 9.8 % Normal [facility] Comment on above: Order Comment: Speci men Type: BLOOD SPECIMENOrdering Facility: [facility] Address: [address] [place] [address] Performed By: #### 5 7021-8 ####[facility] [id number] [place] [address] [place] MCH (RBC) [Entitic mass] 29.0 pg Normal 26.0-34.0 [facility] Comment on above: Order Comment: Speci men Type: BLOOD SPECIMENOrdering Facility: [facility] Address: [address] [place] [address] Performed By: #### 5 7021-8 ####[facility] [id number] [place] [address] [place] MCHC (RBC) [Mass/Vol] 32.9 g/dL Normal 30.5-36.0 [facility] Comment on above: Order Comment: Speci men Type: BLOOD SPECIMENOrdering Facility: [facility] Address: [address] [place] [address] Performed By: #### 5 7021-8 ####[facility] [id number] [place] [address] [place] MCV (RBC) [Entitic vol] 88.3 fL Normal 80.0-100.0 [facility] Comment on above: Order Comment: Speci men Type: BLOOD SPECIMENOrdering Facility: [facility] Address: [address] [place] [address] Performed By: #### 5 7021-8 ####[facility] [id number] [place] [address] [place] Monocytes (Bld) [#/Vol] 1.67 10*3/uL High <0.87 [facility] Comment on above: Order Comment: Speci men Type: BLOOD SPECIMENOrdering Facility: [facility] Address: [address] [place] [address] Performed By: #### 5 7021-8 ####[facility] [id number] [place] [address] [place] Monocytes/100 WBC (Bld) 10.3 % Normal [facility] Comment on above: Order Comment: Speci men Type: BLOOD SPECIMENOrdering Facility: [facility] Address: [address] [place] [address] Performed By: #### 5 7021-8 ####[facility] [id number] [place] [address] [place] Neutrophils (Bld) [#/Vol] 12.86 10*3/uL High 1.45-7.50 [facility] Comment on above: Order Comment: Speci men Type: BLOOD SPECIMENOrdering Facility: [facility] Address: [address] [place] [address] Performed By: #### 5 7021-8 ####[facility] [id number] [place] [address] [place] Neutrophils/100 WBC (Bld) 78.9 % Normal [facility] Comment on above: Order Comment: Speci men Type: BLOOD SPECIMENOrdering Facility: [facility] Address: [address] [place] [address] Performed By: #### 5 7021-8 ####[facility] [id number] [place] [address] [place] Nucleated RBC (Bld) [#/Vol] 10*3/uL Normal <0.01 [facility] Comment on above: Order Comment: Speci men Type: BLOOD SPECIMENOrdering Facility: [facility] Address: [address] [place] [address] Performed By: #### 5 7021-8 ####[facility] [id number] [place] [address] [place] Nucleated RBC/100 WBC (Bld) [Ratio] 0.0 /100 WBC Normal [facility] Comment on above: Order Comment: Speci men Type: BLOOD SPECIMENOrdering Facility: [facility] Address: [address] [place] [address] Performed By: #### 5 7021-8 ####[facility] [id number] [place] [address] [place] Platelet mean volume (Bld) [Entitic vol] 9.7 fL Normal 9.0-12.7 [facility] Comment on above: Order Comment: Speci men Type: BLOOD SPECIMENOrdering Facility: [facility] Address: [address] [place] [address] Performed By: #### 5 7021-8 ####[facility] [id number] [place] [address] [place] Platelets (Bld) [#/Vol] 207 10*3/uL Normal 150-400 [facility] Comment on above: Order Comment: Speci men Type: BLOOD SPECIMENOrdering Facility: [facility] Address: [address] [place] [address] Performed By: #### 5 7021-8 ####[facility] [id number] [place] [address] [place] RBC (Bld) [#/Vol] 2.48 10*6/uL Low 4.20-6.00 [facility] Comment on above: Order Comment: Speci men Type: BLOOD SPECIMENOrdering Facility: [facility] Address: [address] [place] [address] Performed By: #### 5 7021-8 ####[facility] [id number] [place] [address] [place] WBC (Bld) [#/Vol] 16.28 10*3/uL High 3.70-11.00 [facility] Comment on above: Order Comment: Speci men Type: BLOOD SPECIMENOrdering Facility: [facility] Address: [address] [place] [address] Performed By: #### 5 7021-8 ####[facility] [id number] [place] [address] [place] CBC panel Auto (Bld)on 08-30 Erythrocyte distribution width (RBC) [Ratio] 13.1 % Normal 11.5-15.0 [facility] Comment on above: Order Comment: Speci men Type: BLOOD SPECIMENOrdering Facility: [facility] Address: [address] [place] [address] Performed By: #### 5 8410-2 ####[facility] [id number] [place] [address] [place] Hematocrit (Bld) [Volume fraction] 26.8 % Low 39.0-51.0 [facility] Comment on above: Order Comment: Speci men Type: BLOOD SPECIMENOrdering Facility: [facility] Address: [address] [place] [address] Performed By: #### 5 8410-2 ####[facility] [id number] [place] [address] [place] Hemoglobin (Bld) [Mass/Vol] 8.9 g/dL Low 13.0-17.0 [facility] Comment on above: Order Comment: Speci men Type: BLOOD SPECIMENOrdering Facility: [facility] Address: [address] [place] [address] Performed By: #### 5 8410-2 ####[facility] [id number] [place] [address] [place] MCH (RBC) [Entitic mass] 29.6 pg Normal 26.0-34.0 [facility] Comment on above: Order Comment: Speci men Type: BLOOD SPECIMENOrdering Facility: [facility] Address: [address] [place] [address] Performed By: #### 5 8410-2 ####[facility] [id number] [place] [address] [place] MCHC (RBC) [Mass/Vol] 33.2 g/dL Normal 30.5-36.0 [facility] Comment on above: Order Comment: Speci men Type: BLOOD SPECIMENOrdering Facility: [facility] Address: [address] [place] [address] Performed By: #### 5 8410-2 ####[facility] [id number] [place] [address] [place] MCV (RBC) [Entitic vol] 89.0 fL Normal 80.0-100.0 [facility] Comment on above: Order Comment: Speci men Type: BLOOD SPECIMENOrdering Facility: [facility] Address: [address] [place] [address] Performed By: #### 5 8410-2 ####[facility] [id number] [place] [address] [place] Nucleated RBC (Bld) [#/Vol] 10*3/uL Normal <0.01 [facility] Comment on above: Order Comment: Speci men Type: BLOOD SPECIMENOrdering Facility: [facility] Address: [address] [place] [address] Performed By: #### 5 8410-2 ####[facility] [id number] [address] [address] [place] Platelet mean volume (Bld) [Entitic vol] 10.6 fL Normal 9.0-12.7 [facility] Comment on above: Order Comment: Speci men Type: BLOOD SPECIMENOrdering Facility: [facility] Address: [address] [place] [address] Performed By: #### 5 8410-2 ####[facility] [id number] [place] [address] [place] Platelets (Bld) [#/Vol] 223 10*3/uL Normal 150-400 [facility] Comment on above: Order Comment: Speci men Type: BLOOD SPECIMENOrdering Facility: [facility] Address: [address] [place] [address] Performed By: #### 5 8410-2 ####[facility] [id number] [place] [address] [place] RBC (Bld) [#/Vol] 3.01 10*6/uL Low 4.20-6.00 [facility] Comment on above: Order Comment: Speci men Type: BLOOD SPECIMENOrdering Facility: [facility] Address: [address] [place] [address] Performed By: #### 5 8410-2 ####[facility] [id number] [place] [address] [place] WBC (Bld) [#/Vol] 17.79 10*3/uL High 3.70-11.00 [facility] Comment on above: Order Comment: Speci men Type: BLOOD SPECIMENOrdering Facility: [facility] Address: [address] [place] [address] Performed By: #### 5 8410-2 ####[facility] [id number] [place] [address] [place] Erythrocyte distribution width (RBC) [Ratio] 12.9 % Normal 11.5-15.0 [facility] Comment on above: Order Comment: Speci men Type: BLOOD SPECIMENOrdering Facility: [facility] Address: [address] [place] [address] Performed By: #### 5 8410-2 ####[facility] [id number] [place] [address] [place] Hematocrit (Bld) [Volume fraction] 26.1 % Low 39.0-51.0 [facility] Comment on above: Order Comment: Speci men Type: BLOOD SPECIMENOrdering Facility: [facility] Address: [address] [place] [address] Performed By: #### 5 8410-2 ####[facility] [id number] [place] [address] [place] Hemoglobin (Bld) [Mass/Vol] 8.8 g/dL Low 13.0-17.0 [facility] Comment on above: Order Comment: Speci men Type: BLOOD SPECIMENOrdering Facility: [facility] Address: [address] [place] [address] Performed By: #### 5 8410-2 ####[facility] [id number] [place] [address] [place] MCH (RBC) [Entitic mass] 29.7 pg Normal 26.0-34.0 [facility] Comment on above: Order Comment: Speci men Type: BLOOD SPECIMENOrdering Facility: [facility] Address: [address] [place] [address] Performed By: #### 5 8410-2 ####[facility] [id number] [place] [address] [place] MCHC (RBC) [Mass/Vol] 33.7 g/dL Normal 30.5-36.0 [facility] Comment on above: Order Comment: Speci men Type: BLOOD SPECIMENOrdering Facility: [facility] Address: [address] [place] [address] Performed By: #### 5 8410-2 ####[facility] [id number] [place] [address] [place] MCV (RBC) [Entitic vol] 88.2 fL Normal 80.0-100.0 [facility] Comment on above: Order Comment: Speci men Type: BLOOD SPECIMENOrdering Facility: [facility] Address: [address] [place] [address] Performed By: #### 5 8410-2 ####[facility] [id number] [place] [address] [place] Nucleated RBC (Bld) [#/Vol] 10*3/uL Normal <0.01 [facility] Comment on above: Order Comment: Speci men Type: BLOOD SPECIMENOrdering Facility: [facility] Address: [address] [place] [address] Performed By: #### 5 8410-2 ####[facility] [id number] [place] [address] [place] Platelet mean volume (Bld) [Entitic vol] 9.2 fL Normal 9.0-12.7 [facility] Comment on above: Order Comment: Speci men Type: BLOOD SPECIMENOrdering Facility: [facility] Address: [address] [place] [address] Performed By: #### 5 8410-2 ####[facility] [id number] [place] [address] [place] Platelets (Bld) [#/Vol] 194 10*3/uL Normal 150-400 [facility] Comment on above: Order Comment: Speci men Type: BLOOD SPECIMENOrdering Facility: [facility] Address: [address] [place] [address] Performed By: #### 5 8410-2 ####[facility] [id number] [place] [address] [place] RBC (Bld) [#/Vol] 2.96 10*6/uL Low 4.20-6.00 [facility] Comment on above: Order Comment: Speci men Type: BLOOD SPECIMENOrdering Facility: [facility] Address: [address] [place] [address] Performed By: #### 5 8410-2 ####[facility] [id number] [place] [address] [place] WBC (Bld) [#/Vol] 17.35 10*3/uL High 3.70-11.00 [facility] Comment on above: Order Comment: Speci men Type: BLOOD SPECIMENOrdering Facility: [facility] Address: [address] [place] [address] Performed By: #### 5 8410-2 ####[facility] [id number] [place] [address] [place] Erythrocyte distribution width (RBC) [Ratio] 12.9 % Normal 11.5-15.0 [facility] Comment on above: Order Comment: Speci men Type: BLOOD SPECIMENOrdering Facility: [facility] Address: [address] [place] [address] Performed By: #### 5 8410-2 ####[facility] [id number] [place] [address] [place] Hematocrit (Bld) [Volume fraction] 22.0 % Low 39.0-51.0 [facility] Comment on above: Order Comment: Speci men Type: BLOOD SPECIMENOrdering Facility: [facility] Address: [address] [place] [address] Performed By: #### 5 8410-2 ####[facility] [id number] [place] [address] [place] Hemoglobin (Bld) [Mass/Vol] 7.1 g/dL Low 13.0-17.0 [facility] Comment on above: Order Comment: Speci men Type: BLOOD SPECIMENOrdering Facility: [facility] Address: [address] [place] [address] Performed By: #### 5 8410-2 ####[facility] [id number] [place] [address] [place] MCH (RBC) [Entitic mass] 29.0 pg Normal 26.0-34.0 [facility] Comment on above: Order Comment: Speci men Type: BLOOD SPECIMENOrdering Facility: [facility] Address: [address] [place] [address] Performed By: #### 5 8410-2 ####[facility] [id number] [place] [address] [place] MCHC (RBC) [Mass/Vol] 32.3 g/dL Normal 30.5-36.0 [facility] Comment on above: Order Comment: Speci men Type: BLOOD SPECIMENOrdering Facility: [facility] Address: [address] [place] [address] Performed By: #### 5 8410-2 ####[facility] [id number] [place] [address] [place] MCV (RBC) [Entitic vol] 89.8 fL Normal 80.0-100.0 [facility] Comment on above: Order Comment: Speci men Type: BLOOD SPECIMENOrdering Facility: [facility] Address: [address] [place] [address] Performed By: #### 5 8410-2 ####[facility] [id number] [place] [address] [place] Nucleated RBC (Bld) [#/Vol] 10*3/uL Normal <0.01 [facility] Comment on above: Order Comment: Speci men Type: BLOOD SPECIMENOrdering Facility: [facility] Address: [address] [place] [address] Performed By: #### 5 8410-2 ####[facility] [id number] [place] [address] [place] Platelet mean volume (Bld) [Entitic vol] 9.5 fL Normal 9.0-12.7 [facility] Comment on above: Order Comment: Speci men Type: BLOOD SPECIMENOrdering Facility: [facility] Address: [address] [place] [address] Performed By: #### 5 8410-2 ####[facility] [id number] [place] [address] [place] Platelets (Bld) [#/Vol] 211 10*3/uL Normal 150-400 [facility] Comment on above: Order Comment: Speci men Type: BLOOD SPECIMENOrdering Facility: [facility] Address: [address] [place] [address] Performed By: #### 5 8410-2 ####[facility] [id number] [place] [address] [place] RBC (Bld) [#/Vol] 2.45 10*6/uL Low 4.20-6.00 [facility] Comment on above: Order Comment: Speci men Type: BLOOD SPECIMENOrdering Facility: [facility] Address: [address] [place] [address] Performed By: #### 5 8410-2 ####[facility] [id number] [place] [address] [place] WBC (Bld) [#/Vol] 17.80 10*3/uL High 3.70-11.00 [facility] Comment on above: Order Comment: Speci men Type: BLOOD SPECIMENOrdering Facility: [facility] Address: [address] [place] [address] Performed By: #### 5 8410-2 ####[facility] [id number] [address] [address] [place] CONSULT PROGon 08-30-2024 CONSULT PROG Normal [facility] CRP SerPl-mCncon 08-30-2024 CRP [Mass/Vol] 21.6 mg/dL High <0.9 [facility] Comment on above: Order Comment: Speci men Type: BLOOD SPECIMENOrdering Facility: [facility] Address: [address] [place] [address] Performed By: #### 2 777-1, , , 1988-02 ####[facility] [id number] [place] [id number] [place] Comprehensive metabolic 2000 panelon 08-30-2024 Albumin [Mass/Vol] 3.6 g/dL Low 3.9-4.9 [facility] Comment on above: Order Comment: Speci men Type: BLOOD SPECIMENOrdering Facility: [facility] Address: [address] [place] [address] Performed By: #### 2 777-1, , , 1988-02 ####[facility] [id number] [place] [address] [place] ALP [Catalytic activity/Vol] 63 U/L Normal 38-113 [facility] Comment on above: Order Comment: Speci men Type: BLOOD SPECIMENOrdering Facility: [facility] Address: [address] [place] [address] Result Comment: Resu lts may be falsely decreased due to interference from hemolysis. Suggest reorder as clinically indicated. Performed By: #### 2 777-1, , , 1988-02 ####[facility] [id number] [place] [id number] [place] ALT [Catalytic activity/Vol] 80 U/L High 10-54 [facility] Comment on above: Order Comment: Speci men Type: BLOOD SPECIMENOrdering Facility: [facility] Address: [address] [place] [address] Result Comment: Resu lts may be falsely increased due to interference from hemolysis. Suggest reorder as clinically indicated. Performed By: #### 2 777-1, , , 1988-02 ####[facility] [id number] [place] [address] [place] Anion gap [Moles/Vol] 13 mmol/L Normal 8-15 [facility] Comment on above: Order Comment: Speci men Type: BLOOD SPECIMENOrdering Facility: [facility] Address: [address] [place] [address] Performed By: #### 2 777-1, , , 1988-02 ####[facility] [id number] [place] [address] [place] AST [Catalytic activity/Vol] 77 U/L High 14-40 [facility] Comment on above: Order Comment: Speci men Type: BLOOD SPECIMENOrdering Facility: [facility] Address: [address] [place] [address] Result Comment: Resu lts may be falsely increased due to interference from hemolysis. Suggest reorder as clinically indicated. Performed By: #### 2 777-1, , , 1988-02 ####[facility] [id number] [facility] [place] [address] [place] Bilirubin [Mass/Vol] 0.4 mg/dL Normal 0.2-1.3 [facility] Comment on above: Order Comment: Speci men Type: BLOOD SPECIMENOrdering Facility: [facility] Address: [address] [place] [address] Performed By: #### 2 777-1, , , 1988-02 ####[facility] [id number] [address] [address] [place] Calcium [Mass/Vol] 8.5 mg/dL Normal 8.5-10.2 [facility] Comment on above: Order Comment: Speci men Type: BLOOD SPECIMENOrdering Facility: [facility] Address: [address] [place], [place] [address] Performed By: #### 2 777-1, , , 1988-02 ####[facility] [id number] [address] [address] [place] Chloride [Moles/Vol] 99 mmol/L Normal 98-107 [facility] Comment on above: Order Comment: Speci men Type: BLOOD SPECIMENOrdering Facility: [facility] Address: [address] [place] [address] Performed By: #### 2 777-1, , , 1988-02 ####[facility] [id number] [place] [id number] [place] CO2 [Moles/Vol] 25 mmol/L Normal 22-30 [facility] Comment on above: Order Comment: Speci men Type: BLOOD SPECIMENOrdering Facility: [facility] Address: [address] [place] [address] Performed By: #### 2 777-1, , , 1988-02 ####[facility] [id number] [address] [address] [place] Creatinine [Mass/Vol] 0.79 mg/dL Normal 0.73-1.22 [facility] Comment on above: Order Comment: Speci men Type: BLOOD SPECIMENOrdering Facility: [facility] Address: [address] [place] [address] Performed By: #### 2 777-1, , , 1988-02 ####[facility] [id number] [place] [id number] [place] Creatinine and Glomerular filtration rate.predicted panel (S/P/Bld) 106 mL/min/1.73m??? Normal >=60 [facility] Comment on above: Order Comment: Theo narvaez Type: BLOOD SPECIMENOrdering Facility: [facility] Address: [address] [place] [address] Result Comment: Marisa mated Glomerular Filtration Rate [...] By: #### 2 777-1, , , 1988-02 ####[facility] [id number] [place] [address] [place] Glucose [Mass/Vol] 203 mg/dL High 74-99 [facility] Comment on above: Order Comment: Theo narvaez Type: BLOOD SPECIMENOrdering Facility: [facility] Address: [address] [place] [address] Result Comment: The [place] [employer] (ADA) provides guidance for cutoff [...] Standards of Medical Care in Diabetes 2016, [place] [employer]. Diabetes Care. 2016.39(Suppl 1). Performed By: #### 2 777-1, , , 1988-02 ####[facility] [id number] [id number] [address] [place] Potassium [Moles/Vol] Normal [facility] Comment on above: Order Comment: Speci men Type: BLOOD SPECIMENOrdering Facility: [facility] Address: [address] [place] [address] Result Comment: Unab le to assay due to interference from hemolysis. Suggest reorder as clinically indicated. Performed By: #### 2 777-1, , , 1988-02 ####[facility] [id number] [place] [address] [place] Protein [Mass/Vol] 5.9 g/dL Low 6.3-8.0 [facility] Comment on above: Order Comment: Speci men Type: BLOOD SPECIMENOrdering Facility: [facility] Address: [address] [place] [address] Performed By: #### 2 777-1, , , 1988-02 ####[facility] [id number] [place] [address] [place] Sodium [Moles/Vol] 137 mmol/L Normal 136-144 [facility] Comment on above: Order Comment: Speci men Type: BLOOD SPECIMENOrdering Facility: [facility] Address: [address] [place] [address] Performed By: #### 2 777-1, , , 1988-02 ####[facility] [id number] [place] [id number] [place] Urea nitrogen [Mass/Vol] 9 mg/dL Normal 9-24 [facility] Comment on above: Order Comment: Speci men Type: BLOOD SPECIMENOrdering Facility: [facility] Address: [address] [place] [address] Performed By: #### 2 777-1, , , 1988-02 ####[facility] [id number] [place] [address] [place] Albumin [Mass/Vol] 3.9 g/dL Normal 3.9-4.9 [facility] Comment on above: Order Comment: Speci men Type: BLOOD SPECIMENOrdering Facility: [facility] Address: [address] [place] [address] Performed By: #### 2 4323-8, 00012-2, 2776- ####[facility] [id number] [place] [address] [place] ALP [Catalytic activity/Vol] 56 U/L Normal 38-113 [facility] Comment on above: Order Comment: Speci men Type: BLOOD SPECIMENOrdering Facility: [facility] Address: [address] [place] [address] Performed By: #### 2 4323-8, , 2776- ####[facility] [id number] [place] [address] [place] ALT [Catalytic activity/Vol] 98 U/L High 10-54 [facility] Comment on above: Order Comment: Speci men Type: BLOOD SPECIMENOrdering Facility: [facility] [facility] Address: [address] [place] [address] Performed By: #### 2 4323-8, 52764-1, 2776- ####[facility] [id number] [place] [address] [place] Anion gap [Moles/Vol] 9 mmol/L Normal 8-15 [facility] Comment on above: Order Comment: Speci men Type: BLOOD SPECIMENOrdering Facility: [facility] Address: [address] [place] [address] Performed By: #### 2 4323-8, 77097-0, 2776- ####[facility] [id number] [place] [address] [place] AST [Catalytic activity/Vol] 82 U/L High 14-40 [facility] Comment on above: Order Comment: Speci men Type: BLOOD SPECIMENOrdering Facility: [facility] Address: [address] [place], [place] [address] Performed By: #### 2 4323-8, , 2776-10 ####[facility] [id number] [place] [id number] [place] Bilirubin [Mass/Vol] 0.3 mg/dL Normal 0.2-1.3 [facility] Comment on above: Order Comment: Speci men Type: BLOOD SPECIMENOrdering Facility: [facility] Address: [address] [place] [address] Performed By: #### 2 4323-8, , 2776-10 ####[facility] [id number] [place] [address] [place] Calcium [Mass/Vol] 8.2 mg/dL Low 8.5-10.2 [facility] Comment on above: Order Comment: Speci men Type: BLOOD SPECIMENOrdering Facility: [facility] Address: [address] [place] [address] Performed By: #### 2 4323-8, , 2776-10 ####[facility] [id number] [place] [address] [place] Chloride [Moles/Vol] 101 mmol/L Normal 98-107 [facility] Comment on above: Order Comment: Speci men Type: BLOOD SPECIMENOrdering Facility: [facility] Address: [address] [place] [address] Performed By: #### 2 4323-8, , 2776-10 ####[facility] [id number] [address] [address] [place] CO2 [Moles/Vol] 27 mmol/L Normal 22-30 [facility] Comment on above: Order Comment: Speci men Type: BLOOD SPECIMENOrdering Facility: [facility] Address: [address] [place] [id number] Performed By: #### 2 4323-8, , 2776-10 ####[facility] [id number] [address] [address] [place] Creatinine [Mass/Vol] 0.98 mg/dL Normal 0.73-1.22 [facility] Comment on above: Order Comment: Speci men Type: BLOOD SPECIMENOrdering Facility: [facility] Address: [address] [place] [address] Performed By: #### 2 4323-8, , 2776-10 ####[facility] [id number] [place] [address] [place] Creatinine and Glomerular filtration rate.predicted panel (S/P/Bld) 92 mL/min/1.73m??? Normal >=60 [facility] Comment on above: Order Comment: Speci men Type: BLOOD SPECIMENOrdering Facility: [facility] Address: [address] [place] [address] Result Comment: Marisa mated Glomerular Filtration Rate [...] Performed By: #### 2 4323-8, , 2776-10 ####[facility] [id number] [place] [id number] [place] Glucose [Mass/Vol] 172 mg/dL High 74-99 [facility] Comment on above: Order Comment: Speci men Type: BLOOD SPECIMENOrdering Facility: [facility] Address: [address] [place] [address] Result Comment: The [place] [employer] (ADA) provides guidance for cutoff [...] Standards of Medical Care in Diabetes 2016, [place] [employer]. Diabetes Care. 2016.39(Suppl 1). Performed By: #### 2 4323-8, , 2776-10 ####[facility] [id number] [place] [address] [place] Potassium [Moles/Vol] 4.0 mmol/L Normal 3.7-5.1 [facility] Comment on above: Order Comment: Speci men Type: BLOOD SPECIMENOrdering Facility: [facility] Address: [address] [place] [address] Performed By: #### 2 4323-8, , 2776-10 ####[facility] [id number] [place] [address] [place] Protein [Mass/Vol] 5.4 g/dL Low 6.3-8.0 [facility] Comment on above: Order Comment: Speci men Type: BLOOD SPECIMENOrdering Facility: [facility] Address: [address] [place] [address] Performed By: #### 2 4323-8, , 2776-10 ####[facility] [id number] [place] [address] [place] Sodium [Moles/Vol] 137 mmol/L Normal 136-144 [facility] Comment on above: Order Comment: Speci men Type: BLOOD SPECIMENOrdering Facility: [facility] Address: [address] [place] [address] Performed By: #### 2 4323-8, 95199-7, 2776-10 ####[facility] [id number] [place] [id number] [place] Urea nitrogen [Mass/Vol] 12 mg/dL Normal 9-24 [facility] Comment on above: Order Comment: Speci men Type: BLOOD SPECIMENOrdering Facility: [facility] Address: [address] [place], [place] [address] Performed By: #### 2 4323-8, , 2776-10 ####[facility] [id number] [place] [id number] [place] Magnesium SerPl-mCncon 08-30 Magnesium [Mass/Vol] 2.1 mg/dL Normal 1.7-2.3 [facility] Comment on above: Order Comment: Speci men Type: BLOOD SPECIMENOrdering Facility: [facility] Address: [address] [place], [place] [address] Performed By: #### 2 777-1, 65271-0, 54944-8, 1988-02 ####[facility] [id number] [place] [address] [place] Magnesium [Mass/Vol] 1.9 mg/dL Normal 1.7-2.3 [facility] Comment on above: Order Comment: Speci men Type: BLOOD SPECIMENOrdering Facility: [facility] Address: [address] [place], [place] [address] Performed By: #### 2 4323-8, 57347-4, 2776-10 ####[facility] [id number] [place] [id number] [place] PT panel Coag (PPP)on 2023 INR Coag (PPP) [Relative time] 1.1 {INR} Normal 0.9-1.3 [facility] Comment on above: Order Comment: Speci men Type: BLOOD SPECIMENOrdering Facility: [facility] Address: [address] [place] [address] Result Comment: Carmita min K Antagonist (VKA) Therapeutic Range: INR 2 to 3 (Target INR of 2.5)Note: For patients treated with VKA drugs, such as warfarin, the [place] [employer] 2012 Guideline recommends [...] al. Chest 2012, 141:7S-47SNishbeverley RA, et al. [facility] 2017, 70: 252-289 Performed By: #### 3 4528-0, 67752-7 ####[facility] [id number] [place] [address] [place] PT Coag (PPP) [Time] 11.4 s Normal 9.7-13.0 [facility] Comment on above: Order Comment: Theo narvaez Type: BLOOD SPECIMENOrdering Facility: [facility] Address: [address] [place] [address] Performed By: #### 3 4528-0, 99714-0 ####[facility] [id number] [place] [address] [place] INR Coag (PPP) [Relative time] 1.1 {INR} Normal 0.9-1.3 [facility] Comment on above: Order Comment: Theo narvaez Type: BLOOD SPECIMENOrdering Facility: [facility] Address: [address] [place] [address] Result Comment: Carmita min K Antagonist (VKA) Therapeutic Range: INR 2 to 3 (Target INR of 2.5)Note: For patients treated with VKA drugs, such as warfarin, the [place] [employer] 2012 Guideline recommends [...] al. Chest 2012, 141:7S-47SNishimura RA, et al. [facility] 2017, 70: 252-289 Performed By: #### 3 4528-0, 02570-5 ####[facility] [id number] [place] [address] [place] PT Coag (PPP) [Time] 11.7 s Normal 9.7-13.0 [facility] Comment on above: Order Comment: Speci men Type: BLOOD SPECIMENOrdering Facility: [facility] Address: [address] [place] [address] Performed By: #### 3 4528-0, 71639-9 ####[facility] [id number] [place] [address] [place] Phosphate SerPl-mCncon 08-30 Phosphate [Mass/Vol] 1.9 mg/dL Low 2.7-4.8 [facility] Comment on above: Order Comment: Speci men Type: BLOOD SPECIMENOrdering Facility: [facility] Address: [address] [place] [address] Performed By: #### 2 777-1, 91099-0, 20240-4, 1987- ####[facility] [id number] [place] [address] [place] Phosphate [Mass/Vol] 1.9 mg/dL Low 2.7-4.8 [facility] Comment on above: Order Comment: Speci men Type: BLOOD SPECIMENOrdering Facility: [facility] Address: [address] [place] [address] Result Comment: Resu lt rechecked. Performed By: #### 2 4323-8, 29699-1, 2777-1 ####[facility] [id number] [place] [address] [place] aPTT PPPon 08-30-2024 aPTT Coag (PPP) [Time] 27.9 s Normal 23.0-32.4 [facility] Comment on above: Order Comment: Speci men Type: BLOOD SPECIMENOrdering Facility: [facility] Address: [address] [place] [address] Performed By: #### 3 4528-0, 17089-1 ####[facility] [id number] [place] [address] [place] aPTT Coag (PPP) [Time] 31.4 s Normal 23.0-32.4 [facility] Comment on above: Order Comment: Speci men Type: BLOOD SPECIMENOrdering Facility: [facility] Address: [address] [place] [address] Performed By: #### 3 4528-0, 46140-7 ####[facility] [id number] [place] [address] [place] Basic metabolic 2000 panelon 08-29-2024 Anion gap [Moles/Vol] 13 mmol/L Normal 8-15 [facility] Comment on above: Order Comment: Speci men Type: BLOOD SPECIMENOrdering Facility: [facility] Address: [address] [place] [address] Performed By: #### 2 4325-3, 45072-3 ####[facility] [id number] [address] [address] [place] Calcium [Mass/Vol] 8.0 mg/dL Low 8.5-10.2 [facility] Comment on above: Order Comment: Speci men Type: BLOOD SPECIMENOrdering Facility: [facility] Address: [address] [place] [address] Performed By: #### 2 4325-3, 48831-9 ####[facility] [id number] [facility] [place] [address] [place] Chloride [Moles/Vol] 103 mmol/L Normal 98-107 [facility] Comment on above: Order Comment: Speci men Type: BLOOD SPECIMENOrdering Facility: [facility] Address: [address] [place] [address] Performed By: #### 2 4325-3, 45586-9 ####[facility] [id number] [place] [address] [place] CO2 [Moles/Vol] 22 mmol/L Normal 22-30 [facility] Comment on above: Order Comment: Speci men Type: BLOOD SPECIMENOrdering Facility: [facility] Address: [address] [place] [address] Performed By: #### 2 4325-3, 58563-6 ####[facility] [id number] [facility] [place] [address] [place] Creatinine [Mass/Vol] 0.93 mg/dL Normal 0.73-1.22 [facility] Comment on above: Order Comment: Speci men Type: BLOOD SPECIMENOrdering Facility: [facility] Address: [address] [place] [address] Performed By: #### 2 4325-3, 87428-2 ####[facility] [id number] [place] [address] [place] Creatinine and Glomerular filtration rate.predicted panel (S/P/Bld) 98 mL/min/1.73m??? Normal >=60 [facility] Comment on above: Order Comment: Speccurly narvaez Type: BLOOD SPECIMENOrdering Facility: [facility] Address: [address] [place] [address] Result Comment: Marisa mated Glomerular Filtration Rate [...] actual GFR. Performed By: #### 2 4325-3, 19284-8 ####[facility] [id number] [place] [address] [place] Glucose [Mass/Vol] 206 mg/dL High 74-99 [facility] Comment on above: Order Comment: Theo narvaez Type: BLOOD SPECIMENOrdering Facility: [facility] Address: [address] [place] [address] Result Comment: The [place] [employer] (ADA) provides guidance for cutoff [...] Standards of Medical Care in Diabetes 2016, [place] [employer]. Diabetes Care. 2016.39(Suppl 1). Performed By: #### 2 4325-3, 90953-8 ####[facility] [id number] [place] [address] [place] Potassium [Moles/Vol] Normal [facility] Comment on above: Order Comment: Theo narvaez Type: BLOOD SPECIMENOrdering Facility: [facility] Address: [address] [place] [address] Result Comment: Unab le to assay due to interference from hemolysis. Suggest reorder as clinically indicated. Performed By: #### 2 4325-3, 84671-9 ####[facility] [id number] [place] [address] [place] Sodium [Moles/Vol] 138 mmol/L Normal 136-144 [facility] Comment on above: Order Comment: Speci men Type: BLOOD SPECIMENOrdering Facility: [facility] Address: [address] [place] [address] Performed By: #### 2 4325-3, 21003-1 ####[facility] [id number] [place] [address] [place] Urea nitrogen [Mass/Vol] 14 mg/dL Normal 9-24 [facility] Comment on above: Order Comment: Speci men Type: BLOOD SPECIMENOrdering Facility: [facility] Address: [address] [place] [address] Performed By: #### 2 4325-3, 19095-5 ####[facility] [id number] [place] [address] [place] CASE MGT INIT ASSESon 2023 CASE MGT INIT ASSES Normal [facility] CBC W Auto Differential pane l (Bld)on 08-29-2024 Basophils (Bld) [#/Vol] 10*3/uL Normal <0.11 [facility] Comment on above: Order Comment: Speci men Type: BLOOD SPECIMENOrdering Facility: [facility] Address: [address] [place] [address] Performed By: #### 5 7021-8 ####[facility] [id number] [place] [address] [place] Basophils/100 WBC (Bld) 0.1 % Normal [facility] Comment on above: Order Comment: Speci men Type: BLOOD SPECIMENOrdering Facility: [facility] Address: [address] [place] [address] Performed By: #### 5 7021-8 ####[facility] [id number] [place] [address] [place] Differential cell count method Nom (Bld) Auto Normal [facility] Comment on above: Order Comment: Speci men Type: BLOOD SPECIMENOrdering Facility: [facility] Address: [address] [place] [address] Performed By: #### 5 7021-8 ####[facility] [id number] [place] [address] [place] Eosinophils (Bld) [#/Vol] 10*3/uL Normal <0.46 [facility] Comment on above: Order Comment: Speci men Type: BLOOD SPECIMENOrdering Facility: [facility] Address: [address] [place] [address] Performed By: #### 5 7021-8 ####[facility] [id number] [place] [address] [place] Eosinophils/100 WBC (Bld) 0.0 % Normal [facility] Comment on above: Order Comment: Speci men Type: BLOOD SPECIMENOrdering Facility: [facility] Address: [address] [place] [address] Performed By: #### 5 7021-8 ####[facility] [id number] [place] [address] [place] Erythrocyte distribution width (RBC) [Ratio] 12.8 % Normal 11.5-15.0 [facility] Comment on above: Order Comment: Speci men Type: BLOOD SPECIMENOrdering Facility: [facility] Address: [address] [place] [address] Performed By: #### 5 7021-8 ####[facility] [id number] [place] [address] [place] Hematocrit (Bld) [Volume fraction] 26.7 % Low 39.0-51.0 [facility] Comment on above: Order Comment: Speci men Type: BLOOD SPECIMENOrdering Facility: [facility] Address: [address] [place] [address] Performed By: #### 5 7021-8 ####[facility] [id number] [place] [address] [place] Hemoglobin (Bld) [Mass/Vol] 9.0 g/dL Low 13.0-17.0 [facility] Comment on above: Order Comment: Speci men Type: BLOOD SPECIMENOrdering Facility: [facility] Address: [address] [place] [address] Performed By: #### 5 7021-8 ####[facility] [id number] [place] [address] [place] Immature granulocytes (Bld) [#/Vol] 0.09 10*3/uL Normal <0.10 [facility] Comment on above: Order Comment: Speci men Type: BLOOD SPECIMENOrdering Facility: [facility] Address: [address] [place] [address] Performed By: #### 5 7021-8 ####[facility] [id number] [place] [address] [place] Immature granulocytes/100 WBC (Bld) 0.6 % Normal [facility] Comment on above: Order Comment: Speci men Type: BLOOD SPECIMENOrdering Facility: [facility] Address: [address] [place] [address] Performed By: #### 5 7021-8 ####[facility] [id number] [place] [address] [place] Lymphocytes (Bld) [#/Vol] 0.83 10*3/uL Low 1.00-4.00 [facility] Comment on above: Order Comment: Speci men Type: BLOOD SPECIMENOrdering Facility: [facility] Address: [address] [place] [address] Performed By: #### 5 7021-8 ####[facility] [id number] [place] [address] [place] Lymphocytes/100 WBC (Bld) 5.7 % Normal [facility] Comment on above: Order Comment: Speci men Type: BLOOD SPECIMENOrdering Facility: [facility] Address: [address] [place] [address] Performed By: #### 5 7021-8 ####[facility] [id number] [place] [address] [place] MCH (RBC) [Entitic mass] 29.7 pg Normal 26.0-34.0 [facility] Comment on above: Order Comment: Speci men Type: BLOOD SPECIMENOrdering Facility: [facility] Address: [address] [place] [address] Performed By: #### 5 7021-8 ####[facility] [id number] [place] [address] [place] MCHC (RBC) [Mass/Vol] 33.7 g/dL Normal 30.5-36.0 [facility] Comment on above: Order Comment: Speci men Type: BLOOD SPECIMENOrdering Facility: [facility] Address: [address] [place] [address] Performed By: #### 5 7021-8 ####[facility] [id number] [place] [address] [place] MCV (RBC) [Entitic vol] 88.1 fL Normal 80.0-100.0 [facility] Comment on above: Order Comment: Speci men Type: BLOOD SPECIMENOrdering Facility: [facility] Address: [address] [place] [address] Performed By: #### 5 7021-8 ####[facility] [id number] [place] [address] [place] Monocytes (Bld) [#/Vol] 1.13 10*3/uL High <0.87 [facility] Comment on above: Order Comment: Speci men Type: BLOOD SPECIMENOrdering Facility: [facility] Address: [address] [place] [address] Performed By: #### 5 7021-8 ####[facility] [id number] [place] [address] [place] Monocytes/100 WBC (Bld) 7.7 % Normal [facility] Comment on above: Order Comment: Speci men Type: BLOOD SPECIMENOrdering Facility: [facility] Address: [address] [place] [address] Performed By: #### 5 7021-8 ####[facility] [id number] [place] [address] [place] Neutrophils (Bld) [#/Vol] 12.57 10*3/uL High 1.45-7.50 [facility] Comment on above: Order Comment: Speci men Type: BLOOD SPECIMENOrdering Facility: [facility] Address: [address] [place] [address] Performed By: #### 5 7021-8 ####[facility] [id number] [place] [address] [place] Neutrophils/100 WBC (Bld) 85.9 % Normal [facility] Comment on above: Order Comment: Speci men Type: BLOOD SPECIMENOrdering Facility: [facility] Address: [address] [place] [address] Performed By: #### 5 7021-8 ####[facility] [id number] [place] [address] [place] Nucleated RBC (Bld) [#/Vol] 10*3/uL Normal <0.01 [facility] Comment on above: Order Comment: Speci men Type: BLOOD SPECIMENOrdering Facility: [facility] Address: [address] [place] [address] Performed By: #### 5 7021-8 ####[facility] [id number] [place] [address] [place] Nucleated RBC/100 WBC (Bld) [Ratio] 0.0 /100 WBC Normal [facility] Comment on above: Order Comment: Speci men Type: BLOOD SPECIMENOrdering Facility: [facility] Address: [address] [place] [address] Performed By: #### 5 7021-8 ####[facility] [id number] [place] [address] [place] Platelet mean volume (Bld) [Entitic vol] 9.9 fL Normal 9.0-12.7 [facility] Comment on above: Order Comment: Speci men Type: BLOOD SPECIMENOrdering Facility: [facility] Address: [address] [place] [address] Performed By: #### 5 7021-8 ####[facility] [id number] [place] [address] [place] Platelets (Bld) [#/Vol] 209 10*3/uL Normal 150-400 [facility] Comment on above: Order Comment: Speci men Type: BLOOD SPECIMENOrdering Facility: [facility] Address: [address] [place] [address] Performed By: #### 5 7021-8 ####[facility] [id number] [place] [address] [place] RBC (Bld) [#/Vol] 3.03 10*6/uL Low 4.20-6.00 [facility] Comment on above: Order Comment: Speci men Type: BLOOD SPECIMENOrdering Facility: [facility] Address: [address] [place] [address] Performed By: #### 5 7021-8 ####[facility] [id number] [place] [address] [place] WBC (Bld) [#/Vol] 14.63 10*3/uL High 3.70-11.00 [facility] Comment on above: Order Comment: Speci men Type: BLOOD SPECIMENOrdering Facility: [facility] Address: [address] [place] [address] Performed By: #### 5 7021-8 ####[facility] [id number] [place] [address] [place] CONSULTon 08-29-2024 CONSULT Normal [facility] Hepatic function 2000 panelo n 08-29-2024 Albumin [Mass/Vol] 3.7 g/dL Low 3.9-4.9 [facility] Comment on above: Order Comment: Speci men Type: BLOOD SPECIMENOrdering Facility: [facility] Address: [address] [place] [address] Performed By: #### 2 4325-3, 70781-1 ####[facility] [id number] [place] [address] [place] ALP [Catalytic activity/Vol] 55 U/L Normal 38-113 [facility] Comment on above: Order Comment: Speci men Type: BLOOD SPECIMENOrdering Facility: [facility] Address: [address] [place] [address] Performed By: #### 2 4325-3, 52699-5 ####[facility] [id number] [place] [address] [place] ALT [Catalytic activity/Vol] 113 U/L High 10-54 [facility] Comment on above: Order Comment: Speci men Type: BLOOD SPECIMENOrdering Facility: [facility] Address: [address] [place] [address] Result Comment: Resu lts may be falsely increased due to interference from hemolysis. Suggest reorder as clinically indicated. Performed By: #### 2 4325-3, 79493-0 ####[facility] [id number] [address] [address] [place] AST [Catalytic activity/Vol] 121 U/L High 14-40 [facility] Comment on above: Order Comment: Speci men Type: BLOOD SPECIMENOrdering Facility: [facility] Address: [address] [place] [address] Result Comment: Resu lts may be falsely increased due to interference from hemolysis. Suggest reorder as clinically indicated. Performed By: #### 2 4325-3, 39149-0 ####[facility] [id number] [place] [address] [place] Bilirubin [Mass/Vol] 0.6 mg/dL Normal 0.2-1.3 [facility] Comment on above: Order Comment: Speci men Type: BLOOD SPECIMENOrdering Facility: [facility] Address: [address] [place] [address] Performed By: #### 2 432-3, 94468-8 ####[facility] [id number] [place] [address] [place] Bilirubin.conjugated [Mass/Vol] mg/dL Normal <0.2 [facility] Comment on above: Order Comment: Speci men Type: BLOOD SPECIMENOrdering Facility: [facility] Address: [address] [place] [address] Result Comment: Resu lts may be falsely decreased due to interference from hemolysis. Suggest reorder as clinically indicated. Performed By: #### 2 4325-3, 94191-3 ####[facility] [id number] [place] [address] [place] Protein [Mass/Vol] 5.3 g/dL Low 6.3-8.0 [facility] Comment on above: Order Comment: Speci men Type: BLOOD SPECIMENOrdering Facility: [facility] Address: [address] [place] [address] Performed By: #### 2 4325-3, 75514-2 ####[facility] [id number] [place] [address] [place] Lactate (Bld) [Moles/Vol]on 08-29-2024 Lactate [Moles/Vol] 1.8 mmol/L Normal 0.5-2.2 [facility] Comment on above: Order Comment: Speci men Type: BLOOD SPECIMENOrdering Facility: [facility] Address: [address] [place] [address] Performed By: #### 3 2693-4 ####[facility] [id number] [place] [address] [place] NUTRITIONon 08-29-2024 NUTRITION Normal [facility] THERAPY NTon 08-29-2024 THERAPY NT Normal [facility] THERAPY NT Normal [facility] ANES POSTPROC EVALon 024 ANES POSTPROC EVAL Normal [facility] ANES PRE-OPon 08-28-2024 ANES PRE-OP Normal [facility] ARTERIAL BLOOD GASESon 08-28 Base excess Calc (Bld) [Moles/Vol] 0 mmol/L Normal 0-2 [facility] Comment on above: Order Comment: Speci men Type: ARTERIAL BLOOD SPECIMENOrdering Facility: [facility] Address: [address] [place] [address] Performed By: #### A LLBG ####[facility] [id number] [place] [address] [place] Calcium.ionized (Bld) [Mass/Vol] 1.14 mmol/L Normal 1.08-1.30 [facility] Comment on above: Order Comment: Speci men Type: ARTERIAL BLOOD SPECIMENOrdering Facility: [facility] Address: [address] [place] [address] Performed By: #### A LLBG ####[facility] [id number] [place] [address] [place] Calcium.ionized adjusted to pH 7.4 (BldA) [Moles/Vol] 1.12 mmol/L Normal 1.08-1.30 [facility] Comment on above: Order Comment: Speci men Type: ARTERIAL BLOOD SPECIMENOrdering Facility: [facility] Address: [address] [place] [address] Performed By: #### A LLBG ####[facility] [id number] [place] [address] [place] Carboxyhemoglobin (BldA) [Mass fraction] 1.3 % Normal 0.0-2.0 [facility] Comment on above: Order Comment: Speci men Type: ARTERIAL BLOOD SPECIMENOrdering Facility: [facility] Address: [address] [place] [address] Result Comment: Carb oxyhemoglobin Reference Range for Smokers: 2.0-8.0% Performed By: #### A LLBG ####[facility] [id number] [place] [address] [place] CO2 (Bld) [Partial pressure] 44 mm Hg Normal 36-46 [facility] Comment on above: Order Comment: Speci men Type: ARTERIAL BLOOD SPECIMENOrdering Facility: [facility] Address: [address] [place] [address] Performed By: #### A LLBG ####[facility] [id number] [place] [address] [place] CO2 adjusted to patient's actual temperature (Bld) [Partial pressure] 44 mmHg Normal 36-46 [facility] Comment on above: Order Comment: Speci men Type: ARTERIAL BLOOD SPECIMENOrdering Facility: [facility] Address: [address] [place] [address] Performed By: #### A LLBG ####[facility] [id number] [place] [address] [place] Glucose [Mass/Vol] 171 mg/dL High 60-105 [facility] Comment on above: Order Comment: Speci men Type: ARTERIAL BLOOD SPECIMENOrdering Facility: [facility] Address: [address] [place] [address] Performed By: #### A LLBG ####[facility] [id number] [place] [address] [place] HCO3 (Bld) [Moles/Vol] 25 mmol/L Normal 22-26 [facility] Comment on above: Order Comment: Speci men Type: ARTERIAL BLOOD SPECIMENOrdering Facility: [facility] Address: [address] [place] [address] Performed By: #### A LLBG ####[facility] [id number] [place] [address] [place] Hematocrit (Bld) [Volume fraction] 26.6 % Low 39.0-51.0 [facility] Comment on above: Order Comment: Speci men Type: ARTERIAL BLOOD SPECIMENOrdering Facility: [facility] Address: [address] [place] [address] Performed By: #### A LLBG ####[facility] [id number] [place] [address] [place] Hemoglobin (Bld) [Mass/Vol] 8.6 g/dL Low 13.0-17.0 [facility] Comment on above: Order Comment: Speci men Type: ARTERIAL BLOOD SPECIMENOrdering Facility: [facility] Address: [address] [place] [address] Performed By: #### A LLBG ####[facility] [id number] [place] [address] [place] Lactate [Moles/Vol] 3.3 mmol/L High 0.5-2.2 [facility] Comment on above: Order Comment: Speci men Type: ARTERIAL BLOOD SPECIMENOrdering Facility: [facility] Address: [address] [place] [address] Performed By: #### A LLBG ####[facility] [id number] [place] [address] [place] Methemoglobin (Bld) [Mass fraction] 0.7 % Normal 0.0-1.5 [facility] Comment on above: Order Comment: Speci men Type: ARTERIAL BLOOD SPECIMENOrdering Facility: [facility] Address: [address] [place] [address] Performed By: #### A LLBG ####[facility] [id number] [place] [address] [place] Oxygen (Bld) [Partial pressure] 201 mm Hg High 85-95 [facility] Comment on above: Order Comment: Speci men Type: ARTERIAL BLOOD SPECIMENOrdering Facility: [facility] Address: [address] [place] [address] Performed By: #### A LLBG ####[facility] [id number] [place] [address] [place] Oxygen adjusted to patient's actual temperature (Bld) [Partial pressure] 201 mmHg High 85-95 [facility] Comment on above: Order Comment: Speci men Type: ARTERIAL BLOOD SPECIMENOrdering Facility: [facility] Address: [address] [place] [address] Performed By: #### A LLBG ####[facility] [id number] [place] [address] [place] Oxyhemoglobin (BldA) [Mass fraction] 98 % Normal 95-98 [facility] Comment on above: Order Comment: Speci men Type: ARTERIAL BLOOD SPECIMENOrdering Facility: [facility] Address: [address] [place] [address] Performed By: #### A LLBG ####[facility] [id number] [place] [id number] [place] pH (Bld) 7.36 [pH] Normal 7.35-7.45 [facility] Comment on above: Order Comment: Speci men Type: ARTERIAL BLOOD SPECIMENOrdering Facility: [facility] Address: [address] [place] [address] Performed By: #### A LLBG ####[facility] [id number] [place] [address] [place] pH adjusted to patient's actual temperature (Bld) 7.36 Normal 7.35-7.45 [facility] Comment on above: Order Comment: Speci men Type: ARTERIAL BLOOD SPECIMENOrdering Facility: [facility] Address: [address] [place] [address] Performed By: #### A LLBG ####[facility] [id number] [place] [address] [place] Potassium [Moles/Vol] 3.6 mmol/L Normal 3.5-5.0 [facility] Comment on above: Order Comment: Speci men Type: ARTERIAL BLOOD SPECIMENOrdering Facility: [facility] Address: [address] [place] [address] Performed By: #### A LLBG ####[facility] [id number] [place] [address] [place] Sodium [Moles/Vol] 138 mmol/L Normal 136-144 [facility] Comment on above: Order Comment: Speci men Type: ARTERIAL BLOOD SPECIMENOrdering Facility: [facility] Address: [address] [place] [address] Performed By: #### A LLBG ####[facility] [id number] [place] [address] [place] ARTERIAL BLOOD GASES WITH IO NIZED MAGNESIUMon 08-28-2024 Base excess Calc (Bld) [Moles/Vol] 1 mmol/L Normal 0-2 [facility] Comment on above: Order Comment: Speci men Type: ARTERIAL BLOOD SPECIMENOrdering Facility: [facility] Address: [address] [place] [address] Performed By: #### A LLMG ####[facility] [id number] [place] [address] [place] Calcium.ionized (Bld) [Mass/Vol] 1.16 mmol/L Normal 1.08-1.30 [facility] Comment on above: Order Comment: Speci men Type: ARTERIAL BLOOD SPECIMENOrdering Facility: [facility] Address: [address] [place] [address] Performed By: #### A LLMG ####[facility] [id number] [place] [address] [place] Calcium.ionized adjusted to pH 7.4 (BldA) [Moles/Vol] 1.15 mmol/L Normal 1.08-1.30 [facility] Comment on above: Order Comment: Speci men Type: ARTERIAL BLOOD SPECIMENOrdering Facility: [facility] Address: [address] [place] [address] Performed By: #### A LLMG ####[facility] [id number] [place] [address] [place] Carboxyhemoglobin (BldA) [Mass fraction] 1.5 % Normal 0.0-2.0 [facility] Comment on above: Order Comment: Speci men Type: ARTERIAL BLOOD SPECIMENOrdering Facility: [facility] Address: [address] [place] [address] Result Comment: Carb oxyhemoglobin Reference Range for Smokers: 2.0-8.0% Performed By: #### A LLMG ####[facility] [id number] [place] [address] [place] CO2 (Bld) [Partial pressure] 42 mm Hg Normal 36-46 [facility] Comment on above: Order Comment: Speci men Type: ARTERIAL BLOOD SPECIMENOrdering Facility: [facility] Address: [address] [place] [address] Performed By: #### A LLMG ####[facility] [id number] [place] [address] [place] CO2 adjusted to patient's actual temperature (Bld) [Partial pressure] 42 mmHg Normal 36-46 [facility] Comment on above: Order Comment: Speci men Type: ARTERIAL BLOOD SPECIMENOrdering Facility: [facility] Address: [address] [place] [address] Performed By: #### A LLMG ####[facility] [id number] [place] [address] [place] Glucose [Mass/Vol] 220 mg/dL High 60-105 [facility] Comment on above: Order Comment: Speci men Type: ARTERIAL BLOOD SPECIMENOrdering Facility: [facility] Address: [address] [place] [address] Performed By: #### A LLMG ####[facility] [id number] [place] [address] [place] HCO3 (Bld) [Moles/Vol] 25 mmol/L Normal 22-26 [facility] Comment on above: Order Comment: Speci men Type: ARTERIAL BLOOD SPECIMENOrdering Facility: [facility] Address: [address] [place] [address] Performed By: #### A LLMG ####[facility] [id number] [place] [address] [place] Hematocrit (Bld) [Volume fraction] 32.3 % Low 39.0-51.0 [facility] Comment on above: Order Comment: Speci men Type: ARTERIAL BLOOD SPECIMENOrdering Facility: [facility] Address: [address] [place] [address] Performed By: #### A LLMG ####[facility] [id number] [place] [address] [place] Hemoglobin (Bld) [Mass/Vol] 10.4 g/dL Low 13.0-17.0 [facility] Comment on above: Order Comment: Speci men Type: ARTERIAL BLOOD SPECIMENOrdering Facility: [facility] Address: [address] [place] [address] Performed By: #### A LLMG ####[facility] [id number] [place] [address] [place] Lactate [Moles/Vol] 2.0 mmol/L Normal 0.5-2.2 [facility] Comment on above: Order Comment: Speci men Type: ARTERIAL BLOOD SPECIMENOrdering Facility: [facility] Address: [address] [place] [address] Performed By: #### A LLMG ####[facility] [id number] [place] [address] [place] Magnesium [Moles/Vol] 0.40 mmol/L Low 0.45-0.60 [facility] Comment on above: Order Comment: Speci men Type: ARTERIAL BLOOD SPECIMENOrdering Facility: [facility] Address: [address] [place] [address] Performed By: #### A LLMG ####[facility] [id number] [place] [address] [place] Methemoglobin (Bld) [Mass fraction] 0.5 % Normal 0.0-1.5 [facility] Comment on above: Order Comment: Speci men Type: ARTERIAL BLOOD SPECIMENOrdering Facility: [facility] Address: [address] [place] [address] Performed By: #### A LLMG ####[facility] [id number] [place] [address] [place] Oxygen (Bld) [Partial pressure] 179 mm Hg High 85-95 [facility] Comment on above: Order Comment: Speci men Type: ARTERIAL BLOOD SPECIMENOrdering Facility: [facility] Address: [address] [place] [address] Performed By: #### A LLMG ####[facility] [id number] [place] [address] [place] Oxygen adjusted to patient's actual temperature (Bld) [Partial pressure] 179 mmHg High 85-95 [facility] Comment on above: Order Comment: Speci men Type: ARTERIAL BLOOD SPECIMENOrdering Facility: [facility] Address: [address] [place] [address] Performed By: #### A LLMG ####[facility] [id number] [place] [address] [place] Oxyhemoglobin (BldA) [Mass fraction] 98 % Normal 95-98 [facility] Comment on above: Order Comment: Speci men Type: ARTERIAL BLOOD SPECIMENOrdering Facility: [facility] Address: [address] [place] [address] Performed By: #### A LLMG ####[facility] [id number] [place] [address] [place] pH (Bld) 7.40 [pH] Normal 7.35-7.45 [facility] Comment on above: Order Comment: Speci men Type: ARTERIAL BLOOD SPECIMENOrdering Facility: [facility] Address: [address] [place] [address] Performed By: #### A LLMG ####[facility] [id number] [place] [address] [place] pH adjusted to patient's actual temperature (Bld) 7.40 Normal 7.35-7.45 [facility] Comment on above: Order Comment: Speci men Type: ARTERIAL BLOOD SPECIMENOrdering Facility: [facility] Address: [address] [place] [address] Performed By: #### A LLMG ####[facility] [id number] [place] [address] [place] Potassium [Moles/Vol] 4.1 mmol/L Normal 3.5-5.0 [facility] Comment on above: Order Comment: Speci men Type: ARTERIAL BLOOD SPECIMENOrdering Facility: [facility] Address: [address] [place] [address] Performed By: #### A LLMG ####[facility] [id number] [place] [address] [place] Sodium [Moles/Vol] 137 mmol/L Normal 136-144 [facility] Comment on above: Order Comment: Speci men Type: ARTERIAL BLOOD SPECIMENOrdering Facility: [facility] Address: [address] [place] [address] Performed By: #### A LLMG ####[facility] [id number] [place] [address] [place] Base excess Calc (Bld) [Moles/Vol] 2 mmol/L Normal 0-2 [facility] Comment on above: Order Comment: Speci men Type: ARTERIAL BLOOD SPECIMENOrdering Facility: [facility] Address: [address] [place] [address] Performed By: #### A LLMG ####[facility] [id number] [place] [address] [place] Calcium.ionized (Bld) [Mass/Vol] 1.21 mmol/L Normal 1.08-1.30 [facility] Comment on above: Order Comment: Speci men Type: ARTERIAL BLOOD SPECIMENOrdering Facility: [facility] Address: [address] [place] [address] Performed By: #### A LLMG ####[facility] [id number] [place] [address] [place] Calcium.ionized adjusted to pH 7.4 (BldA) [Moles/Vol] 1.22 mmol/L Normal 1.08-1.30 [facility] Comment on above: Order Comment: Speci men Type: ARTERIAL BLOOD SPECIMENOrdering Facility: [facility] Address: [address] [place] [address] Performed By: #### A LLMG ####[facility] [id number] [place] [address] [place] Carboxyhemoglobin (BldA) [Mass fraction] 1.5 % Normal 0.0-2.0 [facility] Comment on above: Order Comment: Speci men Type: ARTERIAL BLOOD SPECIMENOrdering Facility: [facility] Address: [address] [place] [address] Result Comment: Carb oxyhemoglobin Reference Range for Smokers: 2.0-8.0% Performed By: #### A LLMG ####[facility] [id number] [place] [address] [place] CO2 (Bld) [Partial pressure] 40 mm Hg Normal 36-46 [facility] Comment on above: Order Comment: Speci men Type: ARTERIAL BLOOD SPECIMENOrdering Facility: [facility] Address: [address] [place] [address] Performed By: #### A LLMG ####[facility] [id number] [place] [address] [place] CO2 adjusted to patient's actual temperature (Bld) [Partial pressure] 40 mmHg Normal 36-46 [facility] Comment on above: Order Comment: Speci men Type: ARTERIAL BLOOD SPECIMENOrdering Facility: [facility] Address: [address] [place] [address] Performed By: #### A LLMG ####[facility] [id number] [place] [address] [place] Glucose [Mass/Vol] 142 mg/dL High 60-105 [facility] Comment on above: Order Comment: Speci men Type: ARTERIAL BLOOD SPECIMENOrdering Facility: [facility] Address: [address] [place] [address] Performed By: #### A LLMG ####[facility] [id number] [place] [address] [place] HCO3 (Bld) [Moles/Vol] 26 mmol/L Normal 22-26 [facility] Comment on above: Order Comment: Speci men Type: ARTERIAL BLOOD SPECIMENOrdering Facility: [facility] Address: [address] [place] [address] Performed By: #### A LLMG ####[facility] [id number] [place] [address] [place] Hematocrit (Bld) [Volume fraction] 37.7 % Low 39.0-51.0 [facility] Comment on above: Order Comment: Speci men Type: ARTERIAL BLOOD SPECIMENOrdering Facility: [facility] Address: [address] [place] [address] Performed By: #### A LLMG ####[facility] [id number] [place] [address] [place] Hemoglobin (Bld) [Mass/Vol] 12.3 g/dL Low 13.0-17.0 [facility] Comment on above: Order Comment: Speci men Type: ARTERIAL BLOOD SPECIMENOrdering Facility: [facility] Address: [address] [place] [address] Performed By: #### A LLMG ####[facility] [id number] [place] [address] [place] Lactate [Moles/Vol] 1.8 mmol/L Normal 0.5-2.2 [facility] Comment on above: Order Comment: Speci men Type: ARTERIAL BLOOD SPECIMENOrdering Facility: [facility] Address: [address] [place] [address] Performed By: #### A LLMG ####[facility] [id number] [place] [address] [place] Magnesium [Moles/Vol] 0.52 mmol/L Normal 0.45-0.60 [facility] Comment on above: Order Comment: Speci men Type: ARTERIAL BLOOD SPECIMENOrdering Facility: [facility] Address: [address] [place] [id number] Performed By: #### A LLMG ####[facility] [id number] [address] [address] [place] Methemoglobin (Bld) [Mass fraction] 0.8 % Normal 0.0-1.5 [facility] Comment on above: Order Comment: Speci men Type: ARTERIAL BLOOD SPECIMENOrdering Facility: [facility] Address: [address] [place] [id number] Performed By: #### A LLMG ####[facility] [id number] [place] [address] [place] Oxygen (Bld) [Partial pressure] 116 mm Hg High 85-95 [facility] Comment on above: Order Comment: Speci men Type: ARTERIAL BLOOD SPECIMENOrdering Facility: [facility] Address: [address] [place] [address] Performed By: #### A LLMG ####[facility] [id number] [place] [address] [place] Oxygen adjusted to patient's actual temperature (Bld) [Partial pressure] 116 mmHg High 85-95 [facility] Comment on above: Order Comment: Speci men Type: ARTERIAL BLOOD SPECIMENOrdering Facility: [facility] Address: [address] [place] [id number] Performed By: #### A LLMG ####[facility] [id number] [place] [id number] [place] Oxyhemoglobin (BldA) [Mass fraction] 97 % Normal 95-98 [facility] Comment on above: Order Comment: Speci men Type: ARTERIAL BLOOD SPECIMENOrdering Facility: [facility] Address: [address] [place] [id number] Performed By: #### A LLMG ####[facility] [id number] [place] [address] [place] pH (Bld) 7.43 [pH] Normal 7.35-7.45 [facility] Comment on above: Order Comment: Speci men Type: ARTERIAL BLOOD SPECIMENOrdering Facility: [facility] Address: [address] [place] [address] Performed By: #### A LLMG ####[facility] [id number] [place] [address] [place] pH adjusted to patient's actual temperature (Bld) 7.43 Normal 7.35-7.45 [facility] Comment on above: Order Comment: Speci men Type: ARTERIAL BLOOD SPECIMENOrdering Facility: [facility] Address: [address] [place] [address] Performed By: #### A LLMG ####[facility] [id number] [place] [address] [place] Potassium [Moles/Vol] 4.1 mmol/L Normal 3.5-5.0 [facility] Comment on above: Order Comment: Speci men Type: ARTERIAL BLOOD SPECIMENOrdering Facility: [facility] Address: [address] [place] [address] Performed By: #### A LLMG ####[facility] [id number] [place] [address] [place] Sodium [Moles/Vol] 137 mmol/L Normal 136-144 [facility] Comment on above: Order Comment: Speci men Type: ARTERIAL BLOOD SPECIMENOrdering Facility: [facility] Address: [address] [place] [address] Performed By: #### A LLMG ####[facility] [id number] [place] [address] [place] BRIEF OP NOTon 08-28-2024 BRIEF OP NOT Normal [facility] Bacteria Spec Anaerobe Culto n 08-28-2024 Bacteria identified Anaer cx Nom (Unsp spec) Negative Normal [facility] Comment on above: Performed By: #### 6 35-3, 6462-6, 14647-9 ####[facility] [id number] [place] [address] [place] Bacteria Wnd Culton 08-28-20 24 Bacteria identified Cx Nom (Wound) CULTURE, WOUND: No growth GRAM STAIN: No organisms seen No Polymorphonuclear Leukocytes Normal [facility] Comment on above: Performed By: #### 6 35-3, 6462-6, 13151-4 ####[facility] [id number] [place] [address] [place] CBC W Auto Differential pane l (Bld)on 08-28-2024 Basophils (Bld) [#/Vol] 0.00 10*3/uL Normal <0.11 [facility] Comment on above: Order Comment: Speci men Type: BLOOD SPECIMENOrdering Facility: [facility] Address: [address] [place] [address] Performed By: #### 5 7021-8 ####[facility] [id number] [place] [address] [place] Basophils/100 WBC (Bld) 0.0 % Normal [facility] Comment on above: Order Comment: Speci men Type: BLOOD SPECIMENOrdering Facility: [facility] Address: [address] [place] [address] Performed By: #### 5 7021-8 ####[facility] [id number] [place] [address] [place] Differential cell count method Nom (Bld) Manual Normal [facility] Comment on above: Order Comment: Speci men Type: BLOOD SPECIMENOrdering Facility: [facility] Address: [address] [place] [address] Performed By: #### 5 7021-8 ####[facility] [id number] [place] [address] [place] Eosinophils (Bld) [#/Vol] 0.00 10*3/uL Normal <0.46 [facility] Comment on above: Order Comment: Speci men Type: BLOOD SPECIMENOrdering Facility: [facility] Address: [address] [place] [address] Performed By: #### 5 7021-8 ####[facility] [id number] [place] [address] [place] Eosinophils/100 WBC (Bld) 0.0 % Normal [facility] Comment on above: Order Comment: Speci men Type: BLOOD SPECIMENOrdering Facility: [facility] Address: [address] [place] [address] Performed By: #### 5 7021-8 ####[facility] [id number] [place] [address] [place] Erythrocyte distribution width (RBC) [Ratio] 12.7 % Normal 11.5-15.0 [facility] Comment on above: Order Comment: Speci men Type: BLOOD SPECIMENOrdering Facility: [facility] Address: [address] [place] [address] Performed By: #### 5 7021-8 ####[facility] [id number] [place] [address] [place] Hematocrit (Bld) [Volume fraction] 25.2 % Low 39.0-51.0 [facility] Comment on above: Order Comment: Speci men Type: BLOOD SPECIMENOrdering Facility: [facility] Address: [address] [place] [address] Performed By: #### 5 7021-8 ####[facility] [id number] [place] [address] [place] Hemoglobin (Bld) [Mass/Vol] 8.4 g/dL Low 13.0-17.0 [facility] Comment on above: Order Comment: Speci men Type: BLOOD SPECIMENOrdering Facility: [facility] Address: [address] [place] [address] Performed By: #### 5 7021-8 ####[facility] [id number] [place] [address] [place] Lymphocytes (Bld) [#/Vol] 0.27 10*3/uL Low 1.00-4.00 [facility] Comment on above: Order Comment: Speci men Type: BLOOD SPECIMENOrdering Facility: [facility] Address: [address] [place] [address] Performed By: #### 5 7021-8 ####[facility] [id number] [place] [address] [place] Lymphocytes/100 WBC (Bld) 1.7 % Normal [facility] Comment on above: Order Comment: Speci men Type: BLOOD SPECIMENOrdering Facility: [facility] Address: [address] [place] [address] Performed By: #### 5 7021-8 ####[facility] [id number] [place] [address] [place] MCH (RBC) [Entitic mass] 29.0 pg Normal 26.0-34.0 [facility] Comment on above: Order Comment: Speci men Type: BLOOD SPECIMENOrdering Facility: [facility] Address: [address] [place] [address] Performed By: #### 5 7021-8 ####[facility] [id number] [place] [address] [place] MCHC (RBC) [Mass/Vol] 33.3 g/dL Normal 30.5-36.0 [facility] Comment on above: Order Comment: Speci men Type: BLOOD SPECIMENOrdering Facility: [facility] Address: [address] [place] [address] Performed By: #### 5 7021-8 ####[facility] [id number] [place] [address] [place] MCV (RBC) [Entitic vol] 86.9 fL Normal 80.0-100.0 [facility] Comment on above: Order Comment: Speci men Type: BLOOD SPECIMENOrdering Facility: [facility] Address: [address] [place] [address] Performed By: #### 5 7021-8 ####[facility] [id number] [place] [address] [place] Monocytes (Bld) [#/Vol] 1.34 10*3/uL High <0.87 [facility] Comment on above: Order Comment: Speci men Type: BLOOD SPECIMENOrdering Facility: [facility] Address: [address] [place] [address] Performed By: #### 5 7021-8 ####[facility] [id number] [place] [address] [place] Monocytes/100 WBC (Bld) 8.5 % Normal [facility] Comment on above: Order Comment: Speci men Type: BLOOD SPECIMENOrdering Facility: [facility] Address: [address] [place] [address] Performed By: #### 5 7021-8 ####[facility] [id number] [place] [address] [place] Neutrophils (Bld) [#/Vol] 14.14 10*3/uL High 1.45-7.50 [facility] Comment on above: Order Comment: Speci men Type: BLOOD SPECIMENOrdering Facility: [facility] Address: [address] [place] [address] Performed By: #### 5 7021-8 ####[facility] [id number] [place] [address] [place] Neutrophils/100 WBC (Bld) 89.8 % Normal [facility] Comment on above: Order Comment: Speci men Type: BLOOD SPECIMENOrdering Facility: [facility] Address: [address] [place] [address] Performed By: #### 5 7021-8 ####[facility] [id number] [place] [address] [place] Nucleated RBC (Bld) [#/Vol] 10*3/uL Normal <0.01 [facility] Comment on above: Order Comment: Speci men Type: BLOOD SPECIMENOrdering Facility: [facility] Address: [address] [place] [address] Performed By: #### 5 7021-8 ####[facility] [id number] [place] [address] [place] Nucleated RBC/100 WBC (Bld) [Ratio] 0.0 /100 WBC Normal [facility] Comment on above: Order Comment: Speci men Type: BLOOD SPECIMENOrdering Facility: [facility] Address: [address] [place] [address] Performed By: #### 5 7021-8 ####[facility] [id number] [place] [address] [place] Platelet mean volume (Bld) [Entitic vol] 9.7 fL Normal 9.0-12.7 [facility] Comment on above: Order Comment: Speci men Type: BLOOD SPECIMENOrdering Facility: [facility] Address: [address] [place] [address] Performed By: #### 5 7021-8 ####[facility] [id number] [place] [address] [place] Platelets (Bld) [#/Vol] 218 10*3/uL Normal 150-400 [facility] Comment on above: Order Comment: Speci men Type: BLOOD SPECIMENOrdering Facility: [facility] Address: [address] [place] [address] Performed By: #### 5 7021-8 ####[facility] [id number] [address] [address] [place] Platelets Estimate (Bld) [#/Vol] Adequate Normal [facility] Comment on above: Order Comment: Speci men Type: BLOOD SPECIMENOrdering Facility: [facility] Address: [address] [place] [address] Performed By: #### 5 7021-8 ####[facility] [id number] [address] [address] [place] Polychromasia LM Ql (Bld) Slight Normal [facility] Comment on above: Order Comment: Speci men Type: BLOOD SPECIMENOrdering Facility: [facility] Address: [address] [place] [address] Performed By: #### 5 7021-8 ####[facility] [id number] [place] [address] [place] RBC (Bld) [#/Vol] 2.90 10*6/uL Low 4.20-6.00 [facility] Comment on above: Order Comment: Speci men Type: BLOOD SPECIMENOrdering Facility: [facility] Address: [address] [place] [address] Performed By: #### 5 7021-8 ####[facility] [id number] [place] [address] [place] RED CELL MORPH Reviewed: unremarkable Normal [facility] Comment on above: Order Comment: Speci men Type: BLOOD SPECIMENOrdering Facility: [facility] Address: [address] [place] [address] Performed By: #### 5 7021-8 ####[facility] [id number] [place] [address] [place] WBC (Bld) [#/Vol] 15.75 10*3/uL High 3.70-11.00 [facility] Comment on above: Order Comment: Speci men Type: BLOOD SPECIMENOrdering Facility: [facility] Address: [address] [place] [address] Performed By: #### 5 7021-8 ####[facility] [id number] [address] [address] [place] Comprehensive metabolic 2000 panelon 08-28-2024 Albumin [Mass/Vol] 4.2 g/dL Normal 3.9-4.9 [facility] Comment on above: Order Comment: Speci men Type: BLOOD SPECIMENOrdering Facility: [facility] Address: [address] [place] [address] Performed By: #### 3 040-3, 2777-1, 53520-5, 96759-3 ####[facility] [id number] [place] [address] [place] ALP [Catalytic activity/Vol] 56 U/L Normal 38-113 [facility] Comment on above: Order Comment: Speci men Type: BLOOD SPECIMENOrdering Facility: [facility] Address: [address] [place] [address] Performed By: #### 3 040-3, 2777-1, 03437-1, 74209-0 ####[facility] [id number] [place] [address] [place] ALT [Catalytic activity/Vol] 113 U/L High 10-54 [facility] Comment on above: Order Comment: Speci men Type: BLOOD SPECIMENOrdering Facility: [facility] Address: [address] [place] [address] Performed By: #### 3 040-3, 2777-1, 94529-3, 16200-2 ####[facility] [id number] [place] [id number] [place] Anion gap [Moles/Vol] 13 mmol/L Normal 8-15 [facility] Comment on above: Order Comment: Speci men Type: BLOOD SPECIMENOrdering Facility: [facility] Address: [address] [place] [address] Performed By: #### 3 040-3, 2777-1, 29725-7, ####[facility] [id number] [address] [address] [place] AST [Catalytic activity/Vol] 123 U/L High 14-40 [facility] Comment on above: Order Comment: Speci men Type: BLOOD SPECIMENOrdering Facility: [facility] Address: [address] [place] [address] Performed By: #### 3 040-3, 2777-1, 14783-5, ####[facility] [id number] [place] [address] [place] Bilirubin [Mass/Vol] 1.0 mg/dL Normal 0.2-1.3 [facility] Comment on above: Order Comment: Speci men Type: BLOOD SPECIMENOrdering Facility: [facility] Address: [address] [place] [address] Performed By: #### 3 040-3, 2777-1, 05528-3, ####[facility] [id number] [place] [address] [place] Calcium [Mass/Vol] 8.0 mg/dL Low 8.5-10.2 [facility] Comment on above: Order Comment: Speci men Type: BLOOD SPECIMENOrdering Facility: [facility] Address: [address] [place], [place] [address] Performed By: #### 3 040-3, 2777-1, 84686-6, ####[facility] [id number] [place] [address] [place] Chloride [Moles/Vol] 103 mmol/L Normal 98-107 [facility] Comment on above: Order Comment: Speci men Type: BLOOD SPECIMENOrdering Facility: [facility] Address: [address] [place], [place] [address] Performed By: #### 3 040-3, 2777-1, 53483-1, 59327-3 ####[facility] [id number] [address] [address] [place] CO2 [Moles/Vol] 23 mmol/L Normal 22-30 [facility] Comment on above: Order Comment: Speci men Type: BLOOD SPECIMENOrdering Facility: [facility] Address: [address] [place], [place] [address] Performed By: #### 3 040-3, 2777-1, 70672-3, ####[facility] [id number] [address] [address] [place] Creatinine [Mass/Vol] 0.98 mg/dL Normal 0.73-1.22 [facility] Comment on above: Order Comment: Speci men Type: BLOOD SPECIMENOrdering Facility: [facility] Address: [address] [place] [address] Performed By: #### 3 040-3, 2777-1, 17688-5, ####[facility] [id number] [address] [address] [place] Creatinine and Glomerular filtration rate.predicted panel (S/P/Bld) 92 mL/min/1.73m??? Normal >=60 [facility] Comment on above: Order Comment: Speci men Type: BLOOD SPECIMENOrdering Facility: [facility] Address: [address] [place] [address] Result Comment: Marisa mated Glomerular Filtration Rate [...] GFR. Performed By: #### 3 040-3, 2777-1, 00427-5, 28124-0 ####[facility] [id number] [place] [address] [place] Glucose [Mass/Vol] 256 mg/dL High 74-99 [facility] Comment on above: Order Comment: Speci men Type: BLOOD SPECIMENOrdering Facility: [facility] Address: [address] [place] [address] Result Comment: The [place] [employer] (ADA) provides guidance for cutoff [...] Standards of Medical Care in Diabetes 2016, [place] [employer]. Diabetes Care. 2016.39(Suppl 1). Performed By: #### 3 040-3, 2777-1, 98771-1, 83564-2 ####[facility] [id number] [place] [address] [place] Potassium [Moles/Vol] 4.6 mmol/L Normal 3.7-5.1 [facility] Comment on above: Order Comment: Speci men Type: BLOOD SPECIMENOrdering Facility: [facility] Address: [address] [place] [address] Performed By: #### 3 040-3, 2777-1, 33628-4, 81224-4 ####[facility] [id number] [place] [address] [place] Protein [Mass/Vol] 5.4 g/dL Low 6.3-8.0 [facility] Comment on above: Order Comment: Speci men Type: BLOOD SPECIMENOrdering Facility: [facility] Address: [address] [place], [place] [address] Performed By: #### 3 040-3, 2777-1, 28933-1, ####[facility] [id number] [address] [address] [place] Sodium [Moles/Vol] 139 mmol/L Normal 136-144 [facility] Comment on above: Order Comment: Speci men Type: BLOOD SPECIMENOrdering Facility: [facility] Address: [address] [place] [address] Performed By: #### 3 040-3, 2777-1, 97902-9, ####[facility] [id number] [place] [address] [place] Urea nitrogen [Mass/Vol] 17 mg/dL Normal 9-24 [facility] Comment on above: Order Comment: Speci men Type: BLOOD SPECIMENOrdering Facility: [facility] Address: [address] [place] [address] Performed By: #### 3 040-3, 2777-1, 31602-0, ####[facility] [id number] [place] [id number] [place] Lipase SerPl-cCncon 08-28-20 24 Lipase [Catalytic activity/Vol] 19 U/L Normal 16-61 [facility] Comment on above: Order Comment: Speci men Type: BLOOD SPECIMENOrdering Facility: [facility] Address: [address] [place], [place] [address] Performed By: #### 3 040-3, 2777-1, 84803-5, ####[facility] [id number] [address] [address] [place] Magnesium SerPl-mCncon 08-28 Magnesium [Mass/Vol] 1.7 mg/dL Normal 1.7-2.3 [facility] Comment on above: Order Comment: Theo narvaez Type: BLOOD SPECIMENOrdering Facility: [facility] Address: [address] [place] [address] Performed By: #### 3 040-3, 2777-1, 03260-4, 40508-3 ####[facility] [id number] [address] STATES OF [facility] Microorganism Spec Culton Microorganism identified Cx Nom (Unsp spec) CULTURE, FUNGAL: No Fungus isolated after 28 days FUNGAL SMEAR: No fungus seen Normal [facility] Comment on above: Performed By: #### 6 35-3, 6462-6, 30502-5 ####[facility] [id number] [address] [place] OPERATIVE NOon 08-28-2024 OPERATIVE NO Normal [facility] PT panel Coag (PPP)on 2023 INR Coag (PPP) [Relative time] 1.1 {INR} Normal 0.9-1.3 [facility] Comment on above: Order Comment: Theo narvaez Type: BLOOD SPECIMENOrdering Facility: [facility] Address: [address] [place] [address] Result Comment: Carmita min K Antagonist (VKA) Therapeutic Range: INR 2 to 3 (Target INR of 2.5)Note: For patients treated with VKA drugs, such as warfarin, the [place] [employer] 2012 Guideline recommends [...] al. Chest 2012, 141:7S-47SNishimura RA, et al. JACC 2017, 70: 252-289 Performed By: #### 1 4979-9, 15313-7 ####[facility] [id number] [place] [address] [place] PT Coag (PPP) [Time] 11.9 s Normal 9.7-13.0 [facility] Comment on above: Order Comment: Speci men Type: BLOOD SPECIMENOrdering Facility: [facility] Address: [address] [place] [address] Performed By: #### 1 4979-9, 65012-3 ####[facility] [id number] [place] [address] [place] Phosphate SerPl-mCncon 08-28 Phosphate [Mass/Vol] 4.1 mg/dL Normal 2.7-4.8 [facility] Comment on above: Order Comment: Speci men Type: BLOOD SPECIMENOrdering Facility: [facility] Address: [address] [place] [address] Performed By: #### 3 040-3, 2777-1, 73426-4, 32034-8 ####[facility] [id number] [place] [address] [place] STAPHYLOCOCCUS AUREUS AND MR SA SCREEN, PCR, NASALon 08-28-2024 S. aureus and MRSA panel NAZ+probe (Nose) Not detected Normal Not Detected [facility] Comment on above: Order Comment: Speci men Type: SWABOrdering Facility: [facility] Address: [address] [place] [address] Performed By: #### S APCR ####[facility] [id number] [place] [address] [place] SURGICAL PATHOLOGYon 024 CASE REPORT Normal [facility] Comment on above: Order Comment: Speci men Type: TISSUE SPECIMENOrdering Facility: [facility] Address: [address] [place], [place] [address] Result Comment: Surg [facility] Pathology Report Case: [id number] Provider: Jesus Jacobson MD Collected: 08/28/2024 05:31 PMOrdering Location: Admitting Received: 08/29/2024 03:53 PMPathologist: Lilia Hendricks MDSpecimens: A) - Lymph Node (Specify Site in Comments), retro portal lymph node B) - Pancreaticoduodenectomy (Whipple Procedure) Performed By: #### S ####[facility] [id number] [address] [place] CLINICAL HISTORY Normal [facility] Comment on above: Order Comment: Speci men Type: TISSUE SPECIMENOrdering Facility: [facility] Address: [address] [place] [address] Result Comment: Pre- op diagnosis:IPMN (intraductal papillary mucinous neoplasm) [D49.0] Performed By: #### S ####[facility] [id number] [address] DIAGNOSIS COMMENT Normal [facility] Comment on above: Order Comment: Speci men Type: TISSUE SPECIMENOrdering Facility: [facility] Address: [address] [place] [address] Result Comment: -Int raductal papillary mucinous neoplasm (3.9 cm), intestinal type, involving the distal main pancreatic duct and and branch ducts, with focal high-grade dysplasia-No invasive tumor identified in the entirely submitted lesion-Background pancreas with chronic pancreatitis and lobulocentric atrophy-The margins are negative for tumor-Spleen with mild reactive changes-25 benign lymph nodes Performed By: #### S ####[facility] [id number] [address] FINAL DIAGNOSIS Normal [facility] Comment on above: Order Comment: Speci men Type: TISSUE SPECIMENOrdering Facility: [facility] Address: [address] [place] [address] Result Comment: A. R etroportal lymph node, resection-1 benign lymph nodeB. Pancreas, duodenum, bile duct, pancreatoduodenectomy-Intraductal papillary mucinous neoplasm (3.9 cm), intestinal type, with focal high-grade dysplasia-The margins are negative for tumor-25 benign lymph nodes-See comment Performed By: #### S ####[facility] [id number] [address] OF [facility] FINAL PERFORMING LAB Normal [facility] Comment on above: Order Comment: Speci men Type: TISSUE SPECIMENOrdering Facility: [facility] Address: [address] [place] [address] Result Comment: Diag nostic interpretation performed at [facility], [address] [place] [address] CLIA# [id number] Director: Yakov Gurrola M.D. Performed By: #### S ####[facility] [id number] [address] GROSS DESCRIPTION Normal [facility] Comment on above: Order Comment: Speci men Type: TISSUE SPECIMENOrdering Facility: [facility] Address: [address] [place] [address] Result Comment: A. L ymph Node (Specify Site in Comments)Received in formalin designated retroportal lymph node is a clemente-purple lymph node with attached yellow fatty tissue measuring 2.8 x 0.8 x 0.4 cm. The lymph node is bisected and totally submitted in 1 cassette.Gross examination performed at [facility], [address] [place] [address] CLIA# [id number] August 30, 2024 5:11 PMB. Pancreaticoduodenectomy (Whipple [...] follows: - Common bile duct, outer surface: Mccormick - Anterior outer surface of pancreas: Red [...] red and soft. Malpighian corpuscles are not prominent.Cable Technician sections are submitted as follows:B1: Common bile duct margin, en faceB2: Proximal and distal intestinal resection margins, perpendicular, dealer compliance representative sections - Lesion submitted from distal to proximal in cassettes B3-A14H5-V5: Lesion and anterior peripancreatic soft tissue, totally submittedB7-B10: Lesion and posterior peripancreatic soft tissue, totally zxnilgzvvV66: Lesion, remaining, totally uoxeztnoaL88: Dilated main pancreatic duct at the body, dealer compliance representative zpbhmcoA45-E06: Uncinate process, perpendicular, totally jzxmnbioxY59: Dilated main pancreatic duct at the head,, bile duct, and duodenum, dealer compliance representative vwhyjczL58-K66: Vascular groove, perpendicular, totally pyxszwmakY84: Spleen, dealer compliance representative vcohreinF50-S25: 1 possible lymph node per cassette, bisected and totally swxistjybT95: 2 possible lymph nodes, totally fxkqvmduzI57: 5 possible lymph nodes, totally mlwzsqvtkR14-E76: Peripancreatic adipose tissue for microscopic lymph node identification, totally submittedGross examination performed at [facility], [address] [place], [place] [id number] 09/01/24 11:46 AM Performed By: #### S ####[facility] [id number] [place] [address] [place] XR CHEST 1V FRONTAL PORTon 1 10-28-2023 XR CHEST 1V FRONTAL PORT Normal [facility] aPTT PPPon 08-28-2024 aPTT Coag (PPP) [Time] 21.7 s Low 23.0-32.4 [facility] Comment on above: Order Comment: Speci men Type: BLOOD SPECIMENOrdering Facility: [facility] Address: [address] [place] [address] Performed By: #### 1 4979-9, 52749-5 ####[facility] [id number] [place] [address] [place] CBC W Auto Differential pane l (Bld)on 08-22-2024 Basophils (Bld) [#/Vol] 0.04 10*3/uL Normal <0.11 [facility] Comment on above: Order Comment: Speci men Type: BLOOD SPECIMENOrdering Facility: [facility] Address: [address] [place] [address] Performed By: #### 5 7021-8 ####[facility] [id number] [place] [address] [place] Basophils/100 WBC (Bld) 0.6 % Normal [facility] Comment on above: Order Comment: Speci men Type: BLOOD SPECIMENOrdering Facility: [facility] Address: [address] [place] [address] Performed By: #### 5 7021-8 ####[facility] [id number] [place] [address] [place] Differential cell count method Nom (Bld) Auto Normal [facility] Comment on above: Order Comment: Speci men Type: BLOOD SPECIMENOrdering Facility: [facility] Address: [address] [place] [address] Performed By: #### 5 7021-8 ####[facility] [id number] [place] [address] [place] Eosinophils (Bld) [#/Vol] 0.04 10*3/uL Normal <0.46 [facility] Comment on above: Order Comment: Speci men Type: BLOOD SPECIMENOrdering Facility: [facility] Address: [address] [place] [address] Performed By: #### 5 7021-8 ####[facility] [id number] [place] [address] [place] Eosinophils/100 WBC (Bld) 0.6 % Normal [facility] Comment on above: Order Comment: Speci men Type: BLOOD SPECIMENOrdering Facility: [facility] Address: [address] [place] [address] Performed By: #### 5 7021-8 ####[facility] [id number] [place] [address] [place] Erythrocyte distribution width (RBC) [Ratio] 12.5 % Normal 11.5-15.0 [facility] Comment on above: Order Comment: Speci men Type: BLOOD SPECIMENOrdering Facility: [facility] Address: [address] [place] [address] Performed By: #### 5 7021-8 ####[facility] [id number] [place] [address] [place] Hematocrit (Bld) [Volume fraction] 42.3 % Normal 39.0-51.0 [facility] Comment on above: Order Comment: Speci men Type: BLOOD SPECIMENOrdering Facility: [facility] Address: [address] [place] [address] Performed By: #### 5 7021-8 ####[facility] [id number] [place] [address] [place] Hemoglobin (Bld) [Mass/Vol] 13.6 g/dL Normal 13.0-17.0 [facility] Comment on above: Order Comment: Speci men Type: BLOOD SPECIMENOrdering Facility: [facility] Address: [address] [place] [address] Performed By: #### 5 7021-8 ####[facility] [id number] [place] [address] [place] Immature granulocytes (Bld) [#/Vol] 0.03 10*3/uL Normal <0.10 [facility] Comment on above: Order Comment: Speci men Type: BLOOD SPECIMENOrdering Facility: [facility] Address: [address] [place] [address] Performed By: #### 5 7021-8 ####[facility] [id number] [place] [address] [place] Immature granulocytes/100 WBC (Bld) 0.5 % Normal [facility] Comment on above: Order Comment: Speci men Type: BLOOD SPECIMENOrdering Facility: [facility] Address: [address] [place] [address] Performed By: #### 5 7021-8 ####[facility] [id number] [place] [address] [place] Lymphocytes (Bld) [#/Vol] 1.67 10*3/uL Normal 1.00-4.00 [facility] Comment on above: Order Comment: Speci men Type: BLOOD SPECIMENOrdering Facility: [facility] Address: [address] [place] [address] Performed By: #### 5 7021-8 ####[facility] [id number] [place] [address] [place] Lymphocytes/100 WBC (Bld) 25.6 % Normal [facility] Comment on above: Order Comment: Speci men Type: BLOOD SPECIMENOrdering Facility: [facility] Address: [address] [place] [address] Performed By: #### 5 7021-8 ####[facility] [id number] [place] [address] [place] MCH (RBC) [Entitic mass] 28.6 pg Normal 26.0-34.0 [facility] Comment on above: Order Comment: Speci men Type: BLOOD SPECIMENOrdering Facility: [facility] Address: [address] [place] [address] Performed By: #### 5 7021-8 ####[facility] [id number] [place] [address] [place] MCHC (RBC) [Mass/Vol] 32.2 g/dL Normal 30.5-36.0 [facility] Comment on above: Order Comment: Speci men Type: BLOOD SPECIMENOrdering Facility: [facility] Address: [address] [place] [address] Performed By: #### 5 7021-8 ####[facility] [id number] [place] [address] [place] MCV (RBC) [Entitic vol] 89.1 fL Normal 80.0-100.0 [facility] Comment on above: Order Comment: Speci men Type: BLOOD SPECIMENOrdering Facility: [facility] Address: [address] [place] [address] Performed By: #### 5 7021-8 ####[facility] [id number] [place] [address] [place] Monocytes (Bld) [#/Vol] 0.49 10*3/uL Normal <0.87 [facility] Comment on above: Order Comment: Speci men Type: BLOOD SPECIMENOrdering Facility: [facility] Address: [address] [place] [address] Performed By: #### 5 7021-8 ####[facility] [id number] [place] [address] [place] Monocytes/100 WBC (Bld) 7.5 % Normal [facility] Comment on above: Order Comment: Speci men Type: BLOOD SPECIMENOrdering Facility: [facility] Address: [address] [place] [address] Performed By: #### 5 7021-8 ####[facility] [id number] [place] [address] [place] Neutrophils (Bld) [#/Vol] 4.25 10*3/uL Normal 1.45-7.50 [facility] Comment on above: Order Comment: Speci men Type: BLOOD SPECIMENOrdering Facility: [facility] Address: [address] [place] [address] Performed By: #### 5 7021-8 ####[facility] [id number] [place] [address] [place] Neutrophils/100 WBC (Bld) 65.2 % Normal [facility] Comment on above: Order Comment: Speci men Type: BLOOD SPECIMENOrdering Facility: [facility] Address: [address] [place] [address] Performed By: #### 5 7021-8 ####[facility] [id number] [place] [address] [place] Nucleated RBC (Bld) [#/Vol] 10*3/uL Normal <0.01 [facility] Comment on above: Order Comment: Speci men Type: BLOOD SPECIMENOrdering Facility: [facility] Address: [address] [place] [address] Performed By: #### 5 7021-8 ####[facility] [id number] [place] [address] [place] Nucleated RBC/100 WBC (Bld) [Ratio] 0.0 /100 WBC Normal [facility] Comment on above: Order Comment: Speci men Type: BLOOD SPECIMENOrdering Facility: [facility] Address: [address] [place] [address] Performed By: #### 5 7021-8 ####[facility] [id number] [place] [address] [place] Platelet mean volume (Bld) [Entitic vol] 9.3 fL Normal 9.0-12.7 [facility] Comment on above: Order Comment: Speci men Type: BLOOD SPECIMENOrdering Facility: [facility] Address: [address] [place] [address] Performed By: #### 5 7021-8 ####[facility] [id number] [place] [address] [place] Platelets (Bld) [#/Vol] 245 10*3/uL Normal 150-400 [facility] Comment on above: Order Comment: Speci men Type: BLOOD SPECIMENOrdering Facility: [facility] Address: [address] [place] [address] Performed By: #### 5 7021-8 ####[facility] [id number] [place] [address] [place] RBC (Bld) [#/Vol] 4.75 10*6/uL Normal 4.20-6.00 [facility] Comment on above: Order Comment: Speci men Type: BLOOD SPECIMENOrdering Facility: [facility] Address: [address] [place] [address] Performed By: #### 5 7021-8 ####[facility] [id number] [place] [address] [place] WBC (Bld) [#/Vol] 6.52 10*3/uL Normal 3.70-11.00 [facility] Comment on above: Order Comment: Speci men Type: BLOOD SPECIMENOrdering Facility: [facility] Address: [address] [place] [address] Performed By: #### 5 7021-8 ####[facility] [id number] [place] [address] [place] CNNURSEon 08-22-2024 CNNURSE Normal [facility] CNOVon 08-22-2024 CNOV Normal [facility] CONFIRM BLOOD TYPEon 024 ABO O Normal [facility] Comment on above: Order Comment: Speci men Type: BLOOD SPECIMENOrdering Facility: [facility] Address: [address] [place] [address] Performed By: #### C ONABO ####[facility] BLOOD BANKIA [id number] [place] [address] [place] Rh Nom (Bld) Positive Normal [facility] Comment on above: Order Comment: Speci men Type: BLOOD SPECIMENOrdering Facility: [facility] Address: [address] [place] [address] Performed By: #### C ONABO ####[facility]ANK[facility] [id number] [place] [address] [place] Comprehensive metabolic 2000 panelon 08-22-2024 Albumin [Mass/Vol] 4.7 g/dL Normal 3.9-4.9 [facility] Comment on above: Order Comment: Speci men Type: BLOOD SPECIMENOrdering Facility: [facility] Address: [address] [place] [address] Performed By: #### 2 4323-8 ####[facility] [id number] [place] [id number] [place] ALP [Catalytic activity/Vol] 108 U/L Normal 38-113 [facility] Comment on above: Order Comment: Speci men Type: BLOOD SPECIMENOrdering Facility: [facility] Address: [address] [place] [address] Performed By: #### 2 4323-8 ####[facility] [id number] [place] [address] [place] ALT [Catalytic activity/Vol] 35 U/L Normal 10-54 [facility] Comment on above: Order Comment: Speci men Type: BLOOD SPECIMENOrdering Facility: [facility] Address: [address] [place] [address] Performed By: #### 2 4323-8 ####[facility] [id number] [place] [address] [place] Anion gap [Moles/Vol] 14 mmol/L Normal 8-15 [facility] Comment on above: Order Comment: Speci men Type: BLOOD SPECIMENOrdering Facility: [facility] Address: [address] [place] [address] Performed By: #### 2 4323-8 ####[facility] [id number] [place] [address] [place] AST [Catalytic activity/Vol] 31 U/L Normal 14-40 [facility] Comment on above: Order Comment: Speci men Type: BLOOD SPECIMENOrdering Facility: [facility] Address: [address] [place], [place] [address] Performed By: #### 2 4323-8 ####[facility] [id number] [place] [id number] [place] Bilirubin [Mass/Vol] 0.2 mg/dL Normal 0.2-1.3 [facility] Comment on above: Order Comment: Speci men Type: BLOOD SPECIMENOrdering Facility: [facility] Address: [address] [place] [id number] Performed By: #### 2 4323-8 ####[facility] [id number] [address] [address] [place] Calcium [Mass/Vol] 9.9 mg/dL Normal 8.5-10.2 [facility] Comment on above: Order Comment: Speci men Type: BLOOD SPECIMENOrdering Facility: [facility] Address: [address] [place] [address] Performed By: #### 2 4323-8 ####[facility] [id number] [place] [address] [place] Chloride [Moles/Vol] 103 mmol/L Normal 98-107 [facility] Comment on above: Order Comment: Speci men Type: BLOOD SPECIMENOrdering Facility: [facility] Address: [address] [place] [address] Performed By: #### 2 4323-8 ####[facility] [id number] [place] [address] [place] CO2 [Moles/Vol] 26 mmol/L Normal 22-30 [facility] Comment on above: Order Comment: Speci men Type: BLOOD SPECIMENOrdering Facility: [facility] Address: [address] [place], [place] [address] Performed By: #### 2 4323-8 ####[facility] [id number] [facility] [place] [id number] [place] Creatinine [Mass/Vol] 1.10 mg/dL Normal 0.73-1.22 [facility] Comment on above: Order Comment: Speci men Type: BLOOD SPECIMENOrdering Facility: [facility] Address: [address] [place], [place] [address] Performed By: #### 2 4323-8 ####[facility] [id number] [place] [address] [place] Creatinine and Glomerular filtration rate.predicted panel (S/P/Bld) 80 mL/min/1.73m??? Normal >=60 [facility] Comment on above: Order Comment: Theo narvaez Type: BLOOD SPECIMENOrdering Facility: [facility] Address: [address] [place] [address] Result Comment: Marisa mated Glomerular Filtration Rate [...] actual GFR. Performed By: #### 2 4323-8 ####[facility] [id number] [place] [address] [place] Glucose [Mass/Vol] 164 mg/dL High 74-99 [facility] Comment on above: Order Comment: Theo narvaez Type: BLOOD SPECIMENOrdering Facility: [facility] Address: [address] [place] [address] Result Comment: The [place] [employer] (ADA) provides guidance for cutoff [...] Standards of Medical Care in Diabetes 2016, [place] [employer]. Diabetes Care. 2016.39(Suppl 1). Performed By: #### 2 4323-8 ####[facility] [id number] [place] [address] [place] Potassium [Moles/Vol] 4.1 mmol/L Normal 3.7-5.1 [facility] Comment on above: Order Comment: Speci men Type: BLOOD SPECIMENOrdering Facility: [facility] Address: [address] [place], [place] [address] Performed By: #### 2 4323-8 ####[facility] [id number] [place] [address] [place] Protein [Mass/Vol] 7.2 g/dL Normal 6.3-8.0 [facility] Comment on above: Order Comment: Speci men Type: BLOOD SPECIMENOrdering Facility: [facility] Address: [address] [place] [address] Performed By: #### 2 4323-8 ####[facility] [id number] [place] [address] [place] Sodium [Moles/Vol] 143 mmol/L Normal 136-144 [facility] Comment on above: Order Comment: Speci men Type: BLOOD SPECIMENOrdering Facility: [facility] Address: [address] [place] [address] Performed By: #### 2 4323-8 ####[facility] [id number] [place] [address] [place] Urea nitrogen [Mass/Vol] 15 mg/dL Normal 9-24 [facility] Comment on above: Order Comment: Speci men Type: BLOOD SPECIMENOrdering Facility: [facility] Address: [address] [place] [address] Performed By: #### 2 4323-8 ####[facility] [id number] [place] [address] [place] ECG COMPLETEon 08-22-2024 ECG COMPLETE Normal [facility] HISTORY PHYSICALon HISTORY PHYSICAL Normal [facility] TYPE AND SCREEN,30 DAYon ABO O Normal [facility] Comment on above: Order Comment: Speci men Type: BLOOD SPECIMENOrdering Facility: [facility] Address: [address] [facility] [place] [address] Performed By: #### T SCR30 ####[facility] B[facility] BANKCLIA [id number] [place] [address] [place] Rh Nom (Bld) Positive Normal [facility] Comment on above: Order Comment: Speci men Type: BLOOD SPECIMENOrdering Facility: [facility] Address: [address] [place] [address] Performed By: #### T SCR30 ####[facility] BLO[facility] BANKCLIA [id number] [place] [address] [place] XR CHEST 2V FRONTAL/LATon XR CHEST 2V FRONTAL/LAT Normal [facility] XR Chest PA and Lateralon IMPRESSION: No acute disease identified in the lungs or mediastinum. Little interval change since 01/31/2024. Pain Management Nurse Practitioner: [facility] Transcribe Date/Time: Aug 22 2024 4:29P Dictated by : GEE LITTLEJOHN MD This examination was interpreted and the report reviewed and electronically signed by: GEE LITTLEJOHN MD on Aug 22 2024 4:32PM [facility] DIVISION OF RADIOLOGY * * *Final [...] to the sternum. DIVISION OF RADIOLOGY Provider, [facility] Stefanie Ortiz - 08/22/2024 * * [...] or mediastinum. Little interval change since 01/31/2024. Pain Management Nurse Practitioner: [facility] Transcribe Date/Time: Aug 22 2024 4:29P Dictated by : GEE LITTLEJOHN MD This examination was interpreted and the report reviewed and electronically signed by: GEE LITTLEJOHN MD on Aug 22 2024 4:32PM EST [facility] Radiology Study observation (narrative) [facility] XR Chest PA and LateralOrder ed By: Ccf Provider on 08-22-[address] [facility] [address] CHEST WO CONTRASTon 08-11 CT [...] Shayy Granda MD 08/11/24 Final result Normal [place] 08-08-2024 [facility] Normal [facility] XR RIBS LEFT INCLUDE CHEST ( MIN [...] Lauri Billy MD 08/08/24 Final result Normal [facility] XR Ribs - left Views and [facility] st PAon 08-08-2024 No acute abnormaliti es [...] ribs: No fracture. No destructive bony abnormality. [facility] RIS CONSOLIDATED Lauri Billy MD [...] seen in the chest or left ribs [facility] Radiology Study observation (narrative) [facility] XR Ribs - left Views and [place] st PAOrdered By: Lauri Billy on 08-08-2024 [facility] Work Phone: CBC with Auto Differentialon 08-05-2024 Basophils (Bld) [#/Vol] 0.04 10*3/uL [facility] Basophils/100 WBC (Bld) 1 % 0 - 2 % [facility] Eosinophils (Bld) [#/Vol] 0.07 10*3/uL [facility] Eosinophils/100 WBC (Bld) 1 % 1 - 4 % [facility] Erythrocyte distribution width (RBC) [Ratio] 12.4 % 11.8 - 14.4 % [facility] Hematocrit (Bld) [Volume fraction] 41.8 % 40.7 - 50.3 % [facility] Hemoglobin (Bld) [Mass/Vol] 14.1 g/dL 13.0 - 17.0 g/dL [facility] Immature granulocytes (Bld) [#/Vol] 0.03 10*3/uL [facility] Immature granulocytes/100 WBC (Bld) 0 % 0 [facility] Lymphocytes/100 WBC (Bld) 30 % 24 - 43 % [facility] Lymphocytes/100 WBC (Bld) 2.68 % [facility] MCH (RBC) [Entitic mass] 28.8 pg 25.2 - 33.5 pg [facility] MCHC (RBC) [Mass/Vol] 33.7 g/dL 28.4 - 34.8 g/dL [facility] MCV (RBC) [Entitic vol] 85.5 fL 82.6 - 102.9 fL [facility] Monocytes/100 WBC (Bld) 8 % 3 - 12 % [facility] Monocytes/100 WBC (Bld) 0.67 % [facility] Neutrophils/100 WBC (Bld) 60 % 36 - 65 % [facility] Nucleated RBC/100 WBC (Bld) [Ratio] 0.0 % 0.0 per 100 WBC [facility] Platelet mean volume (Bld) [Entitic vol] 9.1 fL 8.1 - 13.5 fL [facility] Platelets (Bld) [#/Vol] 283 10*3/uL [facility] RBC (Bld) [#/Vol] 4.89 10*6/uL 4.21 - 5.7 7 m/uL [facility] Segmented neutrophils/100 WBC (Bld) 5.39 % [facility] WBC other (Bld) [#/Vol] 8.9 [facility] CBC with Diffon 08-05-2024 Abs. Basophil 0.04 k/uL Normal 0.00-0.20 [facility] Comment on above: Performed By: #### C PIRVING, SALI #### [facility] [address] [place] [address] Sorter Lumber Straightener: Ziggy Hilario MD Abs.Imm.Granulocyte 0.03 k/uL Normal 0.00-0.30 [facility] Comment on above: Performed By: #### Audra P, CDP, SALI #### [facility] [address] [place], [place] [id number] [employer] Straightener: Ziggy Hilario MD Abs.Neutrophil (Seg) 5.39 k/uL Normal 1.50-8.10 [facility] Comment on above: Performed By: #### C P, CDP, SALI #### [address] [place], [facility]83 [employer]ightener: Ziggy Hilario MD Basophils/100 WBC (Bld) 1 % Normal 0-2 [facility] Comment on above: Performed By: #### C P, CDP, SALI #### [address] [place], [facility]83 [employer] Straightener: Ziggy Hilario MD Eosinophils (Bld) [#/Vol] 0.07 10*3/uL Normal 0.00-0.44 [facility] Comment on above: Performed By: #### C P, CDP, SALI #### [address] [place], [facility]83 [employer] Straightener: Ziggy Hilario MD Eosinophils/100 WBC (Bld) 1 % Normal 1-4 [facility] Comment on above: Performed By: #### C P, CDP, SALI #### [address] [place], [facility]83 [employer] Straightener: Ziggy Hilario MD Erythrocyte distribution width (RBC) [Ratio] 12.4 % Normal 11.8-14.4 [facility] Comment on above: Performed By: #### C P, CDP, SALI #### [address] [place], [facility]83 [employer] L[employer] Straightener: Ziggy Hilario MD Hematocrit (Bld) [Volume fraction] 41.8 % Normal 40.7-50.3 [facility] Comment on above: Performed By: #### C P, CDP, SALI #### [address] [place], [facility]83 S[employer] L[employer] Straightener: Ziggy Hilario MD Hemoglobin (Bld) [Mass/Vol] 14.1 g/dL Normal 13.0-17.0 [facility] Comment on above: Performed By: #### C P, CDP, SALI #### [facility] [address] [place], [facility] [facility] [employer] Lumber Straightener: Ziggy Hilario MD Immature granulocytes/100 WBC (Bld) 0 % Normal 0 [facility] Comment on above: Performed By: #### C P, CDP, SALI #### [facility] [address] [place], [facility]83 [employer] Straightener: Ziggy Hilario MD Lymphocytes (Bld) [#/Vol] 2.68 10*3/uL Normal 1.10-3.70 [facility] Comment on above: Performed By: #### C P, CDP, SALI #### [address] [place], [facility]83 [employer] Straightener: Ziggy Hilario MD Lymphocytes/100 WBC (Bld) 30 % Normal 24-43 [facility] Comment on above: Performed By: #### C P, CDP, SALI #### [address] [place], [facility]83 [employer] Straightener: Ziggy Hilario MD MCH (RBC) [Entitic mass] 28.8 pg Normal 25.2-33.5 [facility] Comment on above: Performed By: #### C P, CDP, SALI #### [facility] [address] [place], [facility]83 [employer] Straightener: Ziggy Hilario MD MCHC (RBC) [Mass/Vol] 33.7 g/dL Normal 28.4-34.8 [facility] Comment on above: Performed By: #### C P, CDP, SALI #### [facility] [address] [place], [facility]83 [employer] Straightener: Ziggy Hilario MD MCV (RBC) [Entitic vol] 85.5 fL Normal 82.6-102.9 [facility] Comment on above: Performed By: #### C P, CDP, SALI #### [facility] [address] [place], [place] [id number] [employer] Straightener: Ziggy Hilario MD Monocytes (Bld) [#/Vol] 0.67 10*3/uL Normal 0.10-1.20 [facility] Comment on above: Performed By: #### C P, CDP, SALI #### [address] [place], [place] [id number] [employer] Straightener: Ziggy Hilario MD Monocytes/100 WBC (Bld) 8 % Normal 3-12 [facility] Comment on above: Performed By: #### C P, CDP, SALI #### [address] [place], [facility]83 [employer] Straightener: Ziggy Hilario MD Neutrophil (Seg) 60 % Normal 36-65 [facility] Comment on above: Performed By: #### C P, CDP, SALI #### [address] [place], [place] [id number] [employer] Straightener: Ziggy Hilario MD NRBC Automated 0.0 per 100 WBC Normal 0.0 [facility] Comment on above: Performed By: #### C P, CDP, SALI #### [address] [place], [place] [id number] [employer] Straightener: Ziggy Hilario MD Platelet mean volume (Bld) [Entitic vol] 9.1 fL Normal 8.1-13.5 [facility] Comment on above: Performed By: #### C P, CDP, SALI #### [address] [place], [place] [id number] [employer] Straightener: Ziggy Hilario MD Platelets (Bld) [#/Vol] 283 10*3/uL Normal 138-453 [facility] Comment on above: Performed By: #### C P, CDP, SALI #### [facility] [address] [place], [place] [id number] [employer] Straightener: Ziggy Hilario MD RBC (Bld) [#/Vol] 4.89 10*6/uL Normal 4.21-5.77 [facility] Comment on above: Performed By: #### C P, CDP, SALI #### [facility] [address] [place], [place] [address]83 [employer] Straightener: Ziggy Hilario MD WBC (Bld) [#/Vol] 8.9 10*3/uL Normal 3.5-11.3 [facility] Comment on above: Performed By: #### C P, CDP, SALI #### [facility] [address] [place], [place] [id number] S[employer] Straightener: Ziggy Hilario MD Comp Metabolic Profon 2023 Albumin [Mass/Vol] 4.5 g/dL Normal 3.5-5.2 [facility] Comment on above: Performed By: #### C P, CDP, SALI #### [facility] [address] [place], [place] [id number] [employer] Straightener: Ziggy Hilario MD Albumin/Glob Ratio 1.8 Normal 1.0-2.5 [facility] Comment on above: Performed By: #### C P, CDP, SALI #### [facility] [address] [place] [address] S[employer] Straightener: Ziggy Hilario MD Alkaline Phos 100 U/L Normal 40-129 [facility] Comment on above: Performed By: #### C P, CDP, SALI #### [facility] [address] [place] [address] S[employer] Straightener: Ziggy Hilario MD ALT [Catalytic activity/Vol] 37 U/L Normal 10-50 [facility] Comment on above: Performed By: #### C P, CDP, SALI #### [facility] [address] [place], [place] [address]3 S[employer] Straightener: Ziggy Hilario MD Anion gap [Moles/Vol] 12 mmol/L Normal 9-16 [facility] Comment on above: Performed By: #### C P, CDP, SALI #### [facility] [address] [place], [place] 888[address]83 S[employer] Straightener: Ziggy Hilario MD AST [Catalytic activity/Vol] 29 U/L Normal 10-50 [facility] Comment on above: Performed By: #### C P, CDP, SALI #### [facility] [address] [place], [place] [address]883 [employer] Straightener: Ziggy Hilario MD Bilirubin [Mass/Vol] 0.3 mg/dL Normal 0.00-1.20 [facility] Comment on above: Performed By: #### C P, CDP, SALI #### [address] [place], [place] 802[address]83 S[employer] Straightener: Ziggy Hilario MD BUN/CRE Ratio 9 Normal 9-20 [facility] Comment on above: Performed By: #### C P, CDP, SALI #### [facility] [address] [place], [place] 501[address]83 S[employer] Straightener: Ziggy Hilario MD Calcium [Mass/Vol] 10.1 mg/dL Normal 8.6-10.4 [facility] Comment on above: Performed By: #### C P, CDP, SALI #### [facility] [address] [place], [place] 7754183 S[employer] L[employer] Straightener: Ziggy Hilario MD Chloride [Moles/Vol] 100 mmol/L Normal 98-107 [facility] Comment on above: Performed By: #### C P, CDP, SALI #### [facility] [address] [place] [address] S[employer] L[employer] Straightener: Ziggy Hilario MD CO2 [Moles/Vol] 26 mmol/L Normal 20-31 [facility] Comment on above: Performed By: #### C P, CDP, SALI #### [facility] [address] [place] [address] S[employer] L[employer] Straightener: Ziggy Hilario MD Creatinine [Mass/Vol] 1.1 mg/dL Normal 0.70-1.20 [facility] Comment on above: Performed By: #### C P, CDP, SALI #### [facility] [address] [place] [address] S[employer] Straightener: Ziggy Hilario MD GFR/1.73 sq M.predicted among non-blacks MDRD (S/P/Bld) [Vol rate/Area] 76 mL/min/{1.73_m2} Normal >60 [facility] Comment on above: Result Comment: These [...] secretion. Performed By: #### C P, CDP, SALI #### [facility] [address] [place] [address] S[employer] Straightener: Ziggy Hilario MD Glucose [Mass/Vol] 100 mg/dL High 74-99 [facility] Comment on above: Performed By: #### C P, CDP, SALI #### [facility] [address] [place] [address] S[employer] Lumber Straightener: Ziggy Hilario MD Potassium [Moles/Vol] 4.1 mmol/L Normal 3.7-5.3 [facility] Comment on above: Performed By: #### C P, CDP, SALI #### [facility] [address] [place] [address] S[employer] L[employer] Straightener: Ziggy Hilario MD Protein [Mass/Vol] 7.0 g/dL Normal 6.6-8.7 [facility] Comment on above: Performed By: #### C P, CDP, SALI #### [facility] [address] [place], [place] [id number] S[employer] Straightener: Ziggy Hilario MD Sodium [Moles/Vol] 138 mmol/L Normal 136-145 [facility] Comment on above: Performed By: #### C P, CDP, SALI #### [facility] [address] [place] [address] S[employer] L[employer] Straightener: Ziggy Hilario MD Urea nitrogen [Mass/Vol] 10 mg/dL Normal 6-20 [facility] Comment on above: Performed By: #### C P, CDP, SALI #### [facility] [address] [place] [address] S[employer] L[employer] Straightener: Ziggy Hilario MD [facility] Metabolic [facility] 08-05-2024 Albumin [Mass/Vol] 4.5 g/dL 3.5 - 5.2 g/dL [facility] Albumin/Globulin [Mass ratio] 1.8 {ratio} 1.0 - 2.5 [facility] ALP [Catalytic activity/Vol] 100 U/L 40 - 129 U/L [facility] ALT [Catalytic activity/Vol] 37 U/L 10 - 50 U/L [facility] Anion gap [Moles/Vol] 12 mmol/L 9 - 16 mmol/L [facility] AST [Catalytic activity/Vol] 29 U/L 10 - 50 U/L [facility] Bilirubin [Mass/Vol] 0.3 mg/dL 0.00 - 1.20 mg/dL [facility] Calcium [Mass/Vol] 10.1 mg/dL 8.6 - 10. 4 mg/dL [facility] Chloride [Moles/Vol] 100 mmol/L 98 - 10 7 mmol/L [facility] CO2 [Moles/Vol] 26 mmol/L 20 - 31 mmol/L [facility] Creatinine [Mass/Vol] 1.1 mg/dL 0.70 - 1.20 mg/dL [facility] Est, [place] Filt Rate 76 - PINF [facility] Comment on above: These results are [...] 100 mg/dL High 74 - 99 mg/dL [facility] Potassium [Moles/Vol] 4.1 mmol/L 3.7 - 5.3 mmol/L [facility] Protein [Mass/Vol] 7.0 g/dL 6.6 - 8.7 g/dL [facility] Sodium [Moles/Vol] 138 mmol/L 136 - 145 mmol/L [facility] Urea nitrogen [Mass/Vol] 10 mg/dL 6 - 20 mg/dL [facility] Urea nitrogen/Creatinine [Mass ratio] 9 mg/mg 9 - 20 [facility] Lactic Acidon 08-05-2024 Lactate (BldV) [Moles/Vol] 1.2 mmol/L 0.5 - 2.2 mmol/L [facility] Lactate [Moles/Vol] 1.2 mmol/L Normal 0.5-2.2 [facility] Comment on above: Performed By: #### C PIRVING, SALI #### [facility] [address] [place] [address] S[employer] Lumber Straightener: Ziggy Hilario MD Lipaseon 08-05-2024 Lipase [Catalytic activity/Vol] 101 U/L High 13 - 60 U/L [facility] Lipase [Catalytic activity/Vol] 101 U/L High 13-60 [facility] Comment on above: Performed By: #### C P, IRVING, SALI #### [facility] [address] [place] [address] Sorter Lumber Straightener: Ziggy Hilario MD No Panel Informationon 08-05 Interpretation and review of laboratory results Abnormal [facility] EGD Study observation Narrat iveon 07-28-2024 [facility] Radiology Study observation (narrative) [facility] GLUCOSE, BLOOD (POC)on 07-28 Glucose [Mass/Vol] 101 mg/dL Abnormal 74 - 99 mg/dL [facility] Comment on above: Location:[address], [facility] The Accu-Chek Inform II glucose meter has [...] Interpretation and review of laboratory results Abnormal [facility] Glucose [Mass/Vol] 110 mg/dL Abnormal 74 - 99 mg/dL [facility] Comment on above: Location:[address], [facility] The Accu-Chek Inform II glucose meter has [...] Interpretation and review of laboratory results Abnormal [facility] TSH With Reflex Ft4on 2023 TSH Qn 0.85 m[IU]/L [facility] 36on 07-08-2024 36 Pt called back in [...] to call him with results please advise [facility] 36 Upon learning that p t follows with Dr. Davies for GI care, I called and informed him that Dr. Davies (who ordered the tests) is the one to go over the results with him. Pt indicated understanding and said he would call Dr. Davies immediately. [facility] 36 Patient called back looking for an update. I did inform patient that it does look like we just recently received results. Patient would like the doctor to call him with results from the biopsy. Please advise. [facility] Telephoneon 07-08-2024 Telephone [id number] Thomas Petty 1970 Date Provider Department Center 07/08/2024 [facility] No family history on file [facility] 36on 07-03-[address] Aponte, This patient is very anxious to speak to you. Can I tell him when he can expect to hear from you? Ana Maria [facility] 36 Pt called in again regarding lab [...] can be done to help with that [facility] 36 Patient called to go over test results. Patient was informed that test results haven't come in yet and the doctor needs to review them once the results are in. Patient would like a call once the results are in. [facility] 36 Pt called in again i s very concerned and worried about biopsy results and would like to know if they are in . Advised pt they are still in process. Pt would like a call back as soon as possible [facility] 36on 07-02-2024 36 Patient called in, i s requesting a call to go over biopsy results once they've been reviewed. Confirmed patients phone number on file. Normal [facility] Telephoneon 07-02-2024 Telephone [id number] Thomas Petty 1970 M Date Provider Department Center 07/02/2024 Mark Anthony-LUIS F APONTE [facility] GI [facility] No family history on file [facility] HISTOLOGY - TISSUE EXAMon LAB AP CASE REPORT Normal [facility] Comment on above: Result Comment: Surg ical Pathology Case: [id number] Authorizing Provider: Luis F Aponte MD Collected: 06/26/2024 1554 Ordering Location: [facility] Received: 06/27/2024 0811 [facility] Pathologist: Maritza Box MD Specimens: A) - Small Intestine, Duodenum, duodenal bx r/o celiac B) - Distal Esophagus, distal esophagus 35 bx r/o dysplagia C) - Distal Esophagus, distal esophageal bx 33 r/o dysplagia Performed By: #### L [id number] ####[facility] [place] [address] LAB AP CLINICAL INFORMATION Order Diagnoses [facility] Comment on above: Result Comment: K86. 2 - Pancreatic cyst [ICD-10-CM] R93.5 - Abnormal CT of the abdomen [ICD-10-CM] Performed By: #### L [id number] ####[facility] [place] [address] LAB AP GROSS DESCRIPTION [facility] Comment on above: Result Comment: A. S mall Intestine, Duodenum. Received in formalin labeled samantha Fisher bx r/o celiac, are 5 pieces of clemente-pink, irregular mucosal tissue ranging from 0.2 cm to 0.4 cm in greatest dimension. The specimen is submitted in toto in 1 cassette. Jordan Styles [employer] Consultant Student B. Distal Esophagus. Received in formalin labeled Thomas Petty, distal esophagus 35 bx r/o dysplagia, are 3 pieces of clemente-pink, irregular mucosal tissue ranging from 0.2 cm to 0.4 cm in greatest dimension. The specimen is submitted in toto in 1 cassette. Jordan Styles [employer] Consultant Student C. Distal Esophagus. Received in formalin labeled Thomas Petty, distal esophageal bx 33 r/o dysplagia, are 2 pieces of clemente-pink, irregular mucosal tissue each measuring 0.3 cm in greatest dimension. The specimen is submitted in toto in 1 cassette. Sukumar Flynn' Business Consultant Student Performed By: #### L [id number] ####[facility] [place] [address] LAB AP MICROSCOPIC DESCRIPTION Microscopic examination performed. [facility] Comment on above: Performed By: #### L [id number] ####[facility] [place] [address] LAB AP REPORT FINAL DIAGNOSIS NARRATIVE [facility] Comment on above: Result Comment: A. [...] or malignancy identified Performed By: #### L [id number] ####[facility] [place] [address] HPon 06-26-2024 History Of Present Illness Thomas [...] endoscopic ultrasound to assess the pancreas. Normal [facility] NON-DATA CENTER SOLUTIONS ARCHITECT CYTOLOGY - CELLULAR EXAMon 06-26-2024 LAB AP CASE REPORT Normal Nalini wiggins [facility] Comment on above: Result Comment: Non- gynecologic Cytology Case: [id number] Authorizing Provider: Luis F Aponte MD Collected: 06/26/2024 1624 Ordering Location: [facility] Received: 06/27/2024 0910 [facility] Endoscopy Pathologist: Kalpana Ventura MD Specimen: Pancreas, Tail, pancreatic tail FNA Performed By: #### L [id number] ####[facility] ([facility])[address] [place] [address] LAB AP CLINICAL INFORMATION Order Diagnoses Normal [facility] Comment on above: Result Comment: K86. 2 - Pancreatic cyst [ICD-10-CM] R93.5 - Abnormal CT of the abdomen [ICD-10-CM] Performed By: #### L [id number] ####[facility] ([facility])[address] [place] [address] LAB AP DIAGNOSIS COMMENT Normal [facility] Comment on above: Result Comment: A. T he specimen is scantly cellular. While no evidence of high grade dysplasia is identified, very few groups of cyst lining epithelium are present in the sample for evaluation. In addition, cyst fluid chemistries could not be performed. Clinical and endoscopic correlation is suggested. Performed By: #### L [id number] ####[facility] ([facility])[address] [place] [address] LAB AP GROSS DESCRIPTION 6 air-dried slides, 3 alcohol-fixed slides, 30 mL CytoLyt with clear, colorless fluid. [facility] Comment on above: Performed By: #### L [id number] ####[facility] ([facility])[address] [place] [address] LAB AP INTRAOPERATIVE CONSULTATION [facility] Comment on above: Result Comment: Catracho Carvajal. Rapid on-site evaluation was performed by Kalpana Ventura MD. The material examined during rapid on-site evaluation was deemed adequate for diagnosis. Pass #1: Adequate Pass #2: Adequate Pass #3: Defer *Only select material is examined during the on-site evaluation. Final diagnosis is pending the review of all material submitted.* Performed By: #### L AB13 ####[facility] ([facility])[address] [place] [address] LAB AP REPORT FINAL DIAGNOSIS NARRATIVE Normal [facility] Comment on above: Result Comment: Angelika crowell, tail, EUS-guided fine needle aspiration: - Neoplastic mucinous cyst, favor an intraductal papillary mucinous neoplasm (IPMN). - No high grade dysplasia identified. - See comment. Performed By: #### L [id number] ####[facility] ([facility])[address] [place] [address] POCT GLUCOSE METER UNSOLICIT ED RESULTSon 06-26-2024 Glucose [Mass/Vol] 86 mg/dL Normal 70-105 [facility] Comment on above: Order Comment: Waive d Testing in the ED is performed under the ED CLIA certificate #[id number]. Result Comment: jenc k2 Performed By: #### L [id number] ####[facility] ([facility])[address] [place] [address] Prep for Procedureon 024 Prep for Procedure [id number] Thomas Petty 1970 M Date Provider Department Center 06/26/[address] [facility] PREOP AR Medical C No family history on file [facility] Telephoneon 06-10-2024 Telephone [id number] Upsala,Guidolakshmi 1970 M Date Provider Department Center 06/10/2024 RM [facility] No family history on file [facility] Telephoneon 05-30-2024 Telephone [id number] Upsala,Erniejordenlakshmi 1970 M Date Provider Department [place] 05/30/2024 [facility]AI [facility]BDALLA [facility] No family history on file Normal [facility] BASIC METABOLIC PANLon 05-24 Anion gap [Moles/Vol] 11 mmol/L Normal 5-15 [facility] Comment on above: Performed By: #### 7 18-7, PLTCT, 16186-7, 66336-5, BMP, 3040- 3, LIVR, 30084-9 #### [facility] ([id number]) [address] [place] [address] Calcium [Mass/Vol] 9.0 mg/dL Normal 8.5-10.5 [facility] Comment on above: Performed By: #### 7 18-7, PLTCT, 66078-6, 77297-5, BMP, 3040- 3, LIVR, 90868-7 #### [facility] ([id number]) [address] [place] [address] Chloride [Moles/Vol] 106 mmol/L Normal 98-109 [facility] Comment on above: Performed By: #### 7 18-7, PLTCT, 38120-5, 63158-6, BMP, 3040- 3, LIVR, 40265-0 #### [facility] ([id number]) [address] [place] [address] CO2 [Moles/Vol] 25 mmol/L Normal 22-32 [facility] Comment on above: Performed By: #### 7 18-7, PLTCT, 61363-0, 91929-2, BMP, 3040- 3, LIVR, 73526-8 #### [facility] ([id number]) [address] [place] [address] Creatinine [Mass/Vol] 1.23 mg/dL Normal 0.60-1.30 [facility] Comment on above: Result Comment: METH OD TRACEABLE TO IDMS STANDARD Performed By: #### 7 18-7, PLTCT, 77010-4, 68653-9, BMP, 3040-3, LIVR, 56647-9 #### [facility] ([id number]) [address], [address] [place] [address] GFR/1.73 sq M.predicted among non-blacks MDRD (S/P/Bld) [Vol rate/Area] 70 mL/min/{1.73_m2} Normal >59 [facility] Comment on above: Result Comment: Reported eGFR is based on the CKD-EPI 2020 equation that does not use a race coefficient. Performed By: #### 7 18-7, PLTCT, 53081-1, 26365-6, BMP, 3040-3, LIVR, 69152-5 #### [facility] ([id number]) [address], [address] [place] [address] Glucose [Mass/Vol] 114 mg/dL High 65-99 [facility] Comment on above: Performed By: #### 7 18-7, PLTCT, 05292-7, 97809-4, BMP, 3040- 3, LIVR, 56468-2 #### [facility] ([id number]) [address], [address] [place] [address] Potassium [Moles/Vol] 3.6 mmol/L Normal 3.5-5.0 [facility] Comment on above: Performed By: #### 7 18-7, PLTCT, 36713-5, 00901-5, BMP, 3040- 3, LIVR, 12440-0 #### [facility] ([id number]) [address], [address] [place] [address] Sodium [Moles/Vol] 142 mmol/L Normal 134-146 [facility] Comment on above: Performed By: #### 7 18-7, PLTCT, 80630-9, 85398-8, BMP, 3040- 3, LIVR, 55132-3 #### [facility] ([id number]) [address], [address] [place] [address] Urea nitrogen [Mass/Vol] 15 mg/dL Normal 5-23 [facility] Comment on above: Performed By: #### 7 18-7, PLTCT, 11630-4, 38124-4, BMP, 3040- 3, LIVR, 50183-1 #### [facility] ([id number]) [address], [address] [place] [address] CBC AND AUTO DIFFon 05-24-20 24 ABSOLUTE BASOPHIL 0.0 X10E9/L Normal 0.0-0.2 [facility] Comment on above: Performed By: #### 8 9579-7, CBCA #### [facility] ([id number]) [address], [address] [place] [address] ABSOLUTE NEUTROPHIL 4.2 X10E9/L Normal 1.5-6.6 [facility] Comment on above: Performed By: #### 8 9579-7, CBCA #### [facility] ([id number]) [address], [address] [place] [address] Basophils/100 WBC (Bld) 0.4 % Normal [facility] Comment on above: Performed By: #### 8 9579-7, CBCA #### [facility] ([id number]) [address], [address] [place] [address] Eosinophils (Bld) [#/Vol] 0.1 10*3/uL Normal 0.0-0.4 [facility] Comment on above: Performed By: #### 8 9579-7, CBCA #### [facility] ([id number]) [address], [address] [place] [address] Eosinophils/100 WBC (Bld) 1.1 % Normal [facility] Comment on above: Performed By: #### 8 9579-7, CBCA #### [facility] ([id number]) [address], [address] [place] [address] Erythrocyte distribution width (RBC) [Ratio] 12.5 % Normal 11.5-15.0 [facility] [facility] Comment on above: Performed By: #### 8 9579-7, CBCA #### [facility] ([id number]) [address], [address] [place] [address] Hematocrit (Bld) [Volume fraction] 36.9 % Low 39-49 [facility] Comment on above: Performed By: #### 8 9579-7, CBCA #### [facility] ([id number]) [address], [facility] [address] [place] [address] Hemoglobin (Bld) [Mass/Vol] 12.6 g/dL Low 13.0-17.0 [facility] Comment on above: Performed By: #### 8 9579-7, CBCA #### [facility] ([id number]) [address], [address] [place] [address] Lymphocytes (Bld) [#/Vol] 2.6 10*3/uL Normal 1.0-3.5 [facility] Comment on above: Performed By: #### 8 9579-7, CBCA #### [facility] ([id number]) [address], [address] [place] [address] Lymphocytes/100 WBC (Bld) 34.5 % Normal [facility] Comment on above: Performed By: #### 8 9579-7, CBCA #### [facility] ([id number]) [address], [address] [place] [address] MCH (RBC) [Entitic mass] 28.9 pg Normal 27-34 [facility] Comment on above: Performed By: #### 8 9579-7, CBCA #### [facility] ([id number]) [address], [address] [place] [address] MCHC (RBC) [Mass/Vol] 34.2 g/dL Normal 32-36 [facility] Comment on above: Performed By: #### 8 9579-7, CBCA #### [facility] ([id number]) [address], [address] [place] [address] MCV (RBC) [Entitic vol] 85 fL Normal 80-100 [facility] Comment on above: Performed By: #### 8 9579-7, CBCA #### [facility] ([id number]) [address], [address] [place] [address] Monocytes (Bld) [#/Vol] 0.7 10*3/uL Normal 0-0.9 [facility] Comment on above: Performed By: #### 8 9579-7, CBCA #### [facility] ([id number]) [address], [address] [place] [address] Monocytes/100 WBC (Bld) 9.4 % Normal [facility] Comment on above: Performed By: #### 8 9579-7, CBCA #### [facility] ([id number]) [address], [address] [place] [address] Neutrophils/100 WBC (Bld) 54.6 % Normal [facility] Comment on above: Performed By: #### 8 9579-7, CBCA #### [facility] ([id number]) [address], [address] [place] [address] Platelet mean volume (Bld) [Entitic vol] 8.8 fL Normal 7-12 [facility] Comment on above: Performed By: #### 8 9579-7, CBCA #### [facility] ([id number]) [address], [address] [place] [address] Platelets (Bld) [#/Vol] 216 10*3/uL Normal 150-450 [facility] Comment on above: Performed By: #### 8 9579-7, CBCA #### [facility] ([id number]) [address], [address] [place] [address] RBC COUNT 4.36 X10E12/L Normal 4.10-5.70 [facility] Comment on above: Performed By: #### 8 9579-7, CBCA #### [facility] ([id number]) [address], [address] [place] [address] WBC (Bld) [#/Vol] 7.7 10*3/uL Normal 4.0-11.0 [facility] Comment on above: Performed By: #### 8 9579-7, CBCA #### [facility] ([id number]) [address], [address] [place] [address] ED Clinical Summaryon 2023 ED Clinical Summary (Inserted Image. Mariajose ble to display) [id number] [place] [address] ED Clinical Summary Person Information Name: [facility] Age: 53 Years : 1970 Sex: Male PCP: Eliana Morales Marital Status: Phone: Race: White Ethnicity: Not or Language: Mongolian Visit Reason: Abdominal pain; abdominal pain Acuity: 3 Enc Type: Emergency Med Service: Emergency Medicine Arrival: 05/23/2024 16:46:05 Discharge: 05/24/2024 02:20:00 LOS: 000 09:34 Checkin: 05/23/2024 16:46:05 Checkout: 05/24/2024 02:20:00 Dispo Type: Transfer to Acute Care Hospital Address: [address] [place] [phone] Provider Notes: History of Present Illness Patient [...] range between ( 27.2 and 40.8 ) Cache Auto: 7.6 % -- Normal range between [...] range between ( 41.0 and 53.0 ) Cache Absolute: 0.7 x10 MCH: 29.0 pg -- [...] Note-Nursing this RN called repor t to [facility] at [facility]. care transferred via phone to [facility] and all her questions answered. pt going to room B759 Lisa Pittman Normal [facility] Glucose Glucometer (BldC) [M ass/Vol]on 05-24-2024 Glucose [Mass/Vol] 108 mg/dL High 65-99 [facility] Glucose [Mass/Vol] 115 mg/dL High 65-99 [facility] HEMOGLOBINon 05-24-2024 Hemoglobin (Bld) [Mass/Vol] 12.1 g/dL Low 13.0-17.0 [facility] Comment on above: Performed By: #### 7 18-7, PLTCT, 47854-6, 15511-2, BMP, 3040- 3, LIVR, 65327-2 #### [facility] ([id number]) [address], [address] [place] [address] LIPASEon 05-24-2024 Lipase [Catalytic activity/Vol] 63 U/L Normal 11-82 [facility] Comment on above: Performed By: #### 7 18-7, PLTCT, 82606-9, 54478-5, BMP, 3040- 3, LIVR, 72459-0 #### [facility] ([id number]) [address], [address] [place] [address] LIVER PANELon 05-24-2024 Albumin [Mass/Vol] 3.8 g/dL Normal 3.2-5.3 [facility] Comment on above: Performed By: #### 7 18-7, PLTCT, 08817-2, 50616-8, BMP, 3040- 3, LIVR, 50240-8 #### [facility] ([id number]) [address], [address] [place] [address] ALP [Catalytic activity/Vol] 74 U/L Normal 39-130 [facility] Comment on above: Performed By: #### 7 18-7, PLTCT, 96414-9, 25842-6, BMP, 3040- 3, LIVR, 76388-8 #### [facility] ([id number]) [address], [address] [place] [address] ALT [Catalytic activity/Vol] 30 U/L Normal 0-40 [facility] Comment on above: Performed By: #### 7 18-7, PLTCT, 57075-1, 08823-2, BMP, 3040- 3, LIVR, 22500-4 #### [facility] ([id number]) [address], [address] [place] [address] AST [Catalytic activity/Vol] 21 U/L Normal 0-41 [facility] Comment on above: Performed By: #### 7 18-7, PLTCT, 00715-4, 94049-7, BMP, 3040- 3, LIVR, 83625-4 #### [facility] ([id number]) [address], [address] [place] [address] Bilirubin [Mass/Vol] 0.3 mg/dL Normal 0.3-1.2 [facility] Comment on above: Performed By: #### 7 18-7, PLTCT, 92406-7, 77974-0, BMP, 3040- 3, LIVR, 17281-8 #### [facility] ([id number]) [address], [address] [place] [address] Bilirubin.direct [Mass/Vol] 0.0 mg/dL Normal 0.0-0.4 [facility] Comment on above: Performed By: #### 7 18-7, PLTCT, 84591-5, 96993-9, BMP, 3040- 3, LIVR, 06554-7 #### [facility] ([id number]) [address], [address] [place] [address] Protein [Mass/Vol] 6.0 g/dL Normal 6.0-8.0 [facility] Comment on above: Performed By: #### 7 18-7, PLTCT, 20055-5, 49267-9, BMP, 3040- 3, LIVR, 60960-3 #### [facility] ([id number]) [address], [address] [place] [address] MAGNESIUMon 05-24-2024 Magnesium [Mass/Vol] 1.8 mg/dL Normal 1.8-2.6 [facility] Comment on above: Performed By: #### 7 18-7, PLTCT, 35451-3, 57854-7, BMP, 3040- 3, LIVR, 88419-9 #### [facility] ([id number]) [address], [address] [place] [address] PLATELET COUNT AND MPVon Platelet mean volume (Bld) [Entitic vol] 7.7 fL Normal 7-12 [facility] Comment on above: Performed By: #### 7 18-7, PLTCT, 38267-9, 55207-4, BMP, 3040- 3, LIVR, 94946-5 #### [facility] ([id number]) [address], [address] [place] [address] Platelets (Bld) [#/Vol] 222 10*3/uL Normal 150-450 [facility] Comment on above: Performed By: #### 7 18-7, PLTCT, 20172-6, 53514-3, BMP, 3040- 3, LIVR, 03792-5 #### [facility] ([id number]) [address], [address] [place] [address] Troponin I.cardiac High sens itivity method [Mass/Vol]on 05-24-2024 1 HOUR TROP I, HIGH SENSITIVITY 4 ng/L Normal <21 [facility] Comment on above: Performed By: #### 8 9579-7, CBCA #### [facility] ([id number]) [address] [facility], [address] [place] [address] TROPONIN I, HIGH SENSITIVITY 3 ng/L Normal <21 [facility] Comment on above: Performed By: #### 7 18-7, PLTCT, 26005-5, 97748-2, BMP, 3040- 3, LIVR, 92289-4 #### [facility] ([id number]) [address] [facility], [address] [address] aPTT Coag (PPP) [Time]on aPTT Coag (Bld) [Time] 34 s Normal 26-37 [facility] Comment on above: Performed By: #### 7 18-7, PLTCT, 15866-2, 89977-4, BMP, 3040- 3, LIVR, 17545-9 #### [facility] ([id number]) [address], [address] [address] .UA Microscp Aon 05-23-2024 UA RBC Quant 0 /HPF Normal 0-5 [facility] Comment on above: Performed By: #### . Urinalysis Microscopic Auto #### [address] [address] UA WBC Quant 0 /HPF Normal 0-5 [facility] Comment on above: Performed By: #### . Urinalysis Microscopic Auto #### [address] [address] .eGFRon 05-23-2024 GFR/1.73 sq M.predicted MDRD (S/P/Bld) [Vol rate/Area] mL/min/{1.73_m2} Normal >=60 [facility] Comment on above: Result Comment: [facility] have implemented the eGFR calculation [...] years Performed By: #### C BC #### [address] [address] CBC w/ Diffon 05-23-2024 Erythrocyte distribution width (RBC) [Ratio] 12.4 % Normal 11.6-14.8 [facility] Comment on above: Performed By: #### C BC #### [address] [address] Hematocrit (Bld) [Volume fraction] 39.5 % Low 41.0-53.0 [facility] Comment on above: Performed By: #### C BC #### [address] [address] Hemoglobin (Bld) [Mass/Vol] 13.5 g/dL Normal 13.5-17.5 [facility] Comment on above: Performed By: #### C BC #### [address] [address] MCH (RBC) [Entitic mass] 29.0 pg Normal 27.0-35.0 [facility] Comment on above: Performed By: #### C BC #### [address] [address] MCHC 34.1 % Normal 31.0-37.0 [facility] Comment on above: Performed By: #### C BC #### [address] [address] MCV (RBC) [Entitic vol] 85.0 fL Normal 80.0-100.0 [facility] Comment on above: Performed By: #### C BC #### [address] [address] Platelet 265 x10*3/mcL Normal 150-450 [facility] Comment on above: Performed By: #### C BC #### [address] [address] Platelet mean volume (Bld) [Entitic vol] 7.4 fL Normal 6.7-10.6 [facility] Comment on above: Performed By: #### C BC #### [address] [address] RBC 4.65 x10*6/mcL Normal 4.30-5.80 [facility] Comment on above: Performed By: #### C BC #### [address] [address] WBC 9.4 x10*3/mcL Normal 4.5-11.0 [facility] Comment on above: Performed By: #### C BC #### [address] [address] CMPon 05-23-2024 Albumin [Mass/Vol] 4.5 g/dL Normal 3.2-4.9 [facility] Comment on above: Performed By: #### C OMP #### [address] [address] Albumin/Globulin [Mass ratio] 1.7 {ratio} Normal 1.1-2.2 [facility] Comment on above: Performed By: #### C OMP #### [address] [address] Alk Phos 80 IU/L Normal 32-91 [facility] Comment on above: Performed By: #### C OMP #### [address] [place] [address] ALT [Catalytic activity/Vol] 41 U/L Normal 17-63 [facility] Comment on above: Performed By: #### C OMP #### [address] [place] [address] Anion gap [Moles/Vol] 11 mmol/L Normal 4-12 [facility] Comment on above: Performed By: #### C OMP #### [address] [address] AST [Catalytic activity/Vol] 32 U/L Normal 15-41 [facility] Comment on above: Performed By: #### C OMP #### [address] [address] Bili Total 0.6 mg/dL Normal 0.3-1.2 [facility] Comment on above: Performed By: #### C OMP #### [address] [address] Calcium [Mass/Vol] 9.5 mg/dL Normal 8.5-10.3 [facility] Comment on above: Performed By: #### C OMP #### [address] [address] Chloride [Moles/Vol] 100 mmol/L Normal 98-110 [facility] Comment on above: Performed By: #### C OMP #### [address] [place] [address] CO2 [Moles/Vol] 26 mmol/L Normal 22-32 [facility] Comment on above: Performed By: #### C OMP #### [address] [place] [address] Creatinine [Mass/Vol] 1.28 mg/dL High 0.61-1.24 [facility] Comment on above: Performed By: #### C OMP #### [address] [address] Glucose [Mass/Vol] 111 mg/dL High 70-99 [facility] Comment on above: Performed By: #### C OMP #### [address] [address] Potassium [Moles/Vol] 4.0 mmol/L Normal 3.4-4.8 [facility] Comment on above: Performed By: #### C OMP #### [address] [address] Protein [Mass/Vol] 7.2 g/dL Normal 6.5-8.1 [facility] Comment on above: Performed By: #### C OMP #### [address] [address] Sodium [Moles/Vol] 137 mmol/L Normal 133-142 [facility] Comment on above: Performed By: #### C OMP #### [address] [address] Urea nitrogen [Mass/Vol] 16 mg/dL Normal 8-26 [facility] Comment on above: Performed By: #### C OMP #### [address] [address] Urea nitrogen/Creatinine [Mass ratio] 12.5 mg/mg Normal 10.0-20.0 [facility] Comment on above: Performed By: #### C OMP #### [address] [address] [address] Abdomen Pelvis w/ IV Cont [facility] 05-23-2024 CT Abdomen Pelvis w/ IV Contrast [...] 05-23-2024 Baso Absolute 0.0 x10*3/mcL Normal 0.0-0.2 [facility] Comment on above: Performed By: #### . Automated Diff #### [facility] [address] [place] [address] Basophils/100 WBC (Bld) 0.4 % Normal 0.0-1.2 [facility] Comment on above: Performed By: #### . Automated Diff #### [facility] [address] [place] [address] Eos Absolute 0.1 x10*3/mcL Normal 0.0-0.4 [facility] Comment on above: Performed By: #### . Automated Diff #### [address] [address] Eosinophils/100 WBC (Bld) 0.8 % Normal 0.0-6.1 [facility] Comment on above: Performed By: #### . Automated Diff #### [address] [address] Lymph Absolute 2.1 x10*3/mcL Normal 1.0-4.8 [facility] Comment on above: Performed By: #### . Automated Diff #### [address] [address] Lymphocytes/100 WBC (Bld) 22.3 % Low 27.2-40.8 [facility] Comment on above: Performed By: #### . Automated Diff #### [address] [address] Cache Absolute 0.7 x10*3/mcL Normal 0.3-1.1 [facility] Comment on above: Performed By: #### . Automated Diff #### [address] [address] Monocytes/100 WBC (Bld) 7.6 % Normal 4.7-13.9 [facility] Comment on above: Performed By: #### . Automated Diff #### [address] [address] Neutro Absolute 6.5 x10*3/mcL Normal 1.8-7.7 [facility] Comment on above: Performed By: #### . Automated Diff #### [address] [address] Neutro Auto 68.9 % Normal 47.2-70.8 [facility] Comment on above: Performed By: #### . Automated Diff #### [address] [address] ED Note-Nursingon 05-23-2024 ED Note-Nursing pt. requesting [...] in this document, created by the medical technologist microbiology for me, accurately reflects the services I [...] _ ? NEXUS C-spine Criteria: _ ? [place] Ankle Rule: _ ? [place] Knee Rule: _ ? Wells Criteria for [...] results with patient. Plan for transfer to [facility] for ERCP. Patient was excepted at [facility], awaiting bed. Shared decision making: _ Code status: _ Assessment/Plan 1. History of pancreatitis Ordered: amitriptyline, 50 mg, Oral, Tab, HS (at bedtime), First Dose: 05/24/24 21:00:00 EDT, Dispense From Location: [facility], 05/23/24 22:15:00 EDT amLODIPine, 2.5 mg, Oral, Tab, Daily, First Dose: 05/24/24 9:00:00 EDT, Dispense From Location: [facility], 05/23/24 22:12:00 EDT atorvastatin, 40 mg, Oral, Tab, Daily, First Dose: 05/24/24 9:00:00 EDT, Dispense From Location: [facility], 05/23/24 22:15:00 EDT clonazePAM, 1 mg, Oral, Tab, HS (at bedtime), First Dose: 05/23/24 22:15:00 EDT, Dispense From Location: [facility], 05/23/24 22:15:00 EDT clonazePAM, 0.5 mg, Oral, Tab, Daily, First Dose: 05/23/24 22:15:00 EDT, Dispense From Location: [facility], 05/23/24 22:15:00 EDT pancrelipase, 6 caps, Oral, Cap-DR, TID, PRN other (see comment), First Dose: 05/23/24 22:15:00 EDT, Dispense From Location: [facility], 05/23/24 22:15:00 EDT ziprasidone, 40 mg, Oral, Cap, HS (at bedtime), First Dose: 05/23/24 22:15:00 EDT, Dispense From Location: [facility], 05/23/24 22:15:00 EDT Complete Blood Count w/ Differential Comprehensive Metabolic Panel 2. Pancreatic duct dilated Ordered: amitriptyline, 50 mg, Oral, Tab, HS (at bedtime), First Dose: 05/24/24 21:00:00 EDT, Dispense From Location: [facility], 05/23/24 22:15:00 EDT amLODIPine, 2.5 mg, Oral, Tab, Daily, First Dose: 05/24/24 9:00:00 EDT, Dispense From Location: [facility], (more content not included)... Normal [facility] Lipaseon 05-23-2024 Lipase Lvl 103 IU/L High 22-51 [facility] Comment on above: Performed By: #### L IP #### [facility] [address] [place] [address] UA w Culture if Indon 2023 Color (U) Yellow Normal Yellow [facility] Comment on above: Performed By: #### C BC #### [facility] [address] [place] [address] Ketones Ql (U) Negative Normal Negative [facility] Comment on above: Performed By: #### C BC #### [facility] [address] [place] [address] UA Blood Negative Normal Negative [facility] Comment on above: Performed By: #### C BC #### [facility] [address] [place] [address], [place] [address] UA Clarity Clear Normal Clear [facility] Comment on above: Performed By: #### C BC #### [facility] [address] [place] [address], [place] [address] UA Glucose Normal Normal Negative [facility] Comment on above: Performed By: #### C BC #### [facility] [address] [place] [address], [place] [address] UA Leukocyte Esterase Negative Normal Negative [facility] Comment on above: Performed By: #### C BC #### [facility] [address] [place] [address], [place] [address] UA Nitrite Negative Normal Negative [facility] Comment on above: Performed By: #### C BC #### [facility] [address] [place] [address], [place] [address] UA pH 7.0 Normal 4.5 - 7.8 [facility] Comment on above: Performed By: #### C BC #### [facility] [address] [place] [address], [place] [address] UA Protein Negative Normal Negative [facility] Comment on above: Performed By: #### C BC #### [facility] [address] [place] [address], [place] [address] UA Source Clean Catch Normal [facility] Comment on above: Performed By: #### C BC #### [facility] [address] [place] [address], [place] [address] UA Spec Grav 1.010 Normal 1.003-1.035 [facility] Comment on above: Performed By: #### C BC #### [address] [place] [address] UA Urobilinogen Normal Normal 0.2 - 1.0 [facility] Comment on above: Performed By: #### C #### [facility] [address] [place] [address] Urobilinogen (U) [Mass/Vol] Negative Normal Negative [facility] Comment on above: Performed By: #### C #### [facility] [address] [place] [address] No Panel Informationon 04-26 Left wrist: 1. [...] above. Kyphosis of the thoracic spine. 3. Mbct-ni-qdtwyncz degenerative changes in the thoracic spine. Lumbar [...] adjacent to the lateral right iliac bone. [facility] Miguel Jimenez MD [...] above. Kyphosis of the thoracic spine. 3. Yock-pg-ovlwkxwm degenerative changes in the thoracic spine. Lumbar spine: 1. Remote vertebroplasty and compression deformity of L3. 2. No acute vertebral body height loss in the lumbar spine. [facility] No Panel InformationOrdered By: Miguel Jimenez on 04-26-2024 [employer] Work Phone: XR Finger - left 2 [facility] 0 04-26-2024 Radiology Study observation (narrative) [employer] XR Lumbar spine 2 or 3 Views on 04-26-2024 Radiology Study observation (narrative) [facility] XR Thoracic spine 2 [facility] 04-26-2024 Radiology Study observation (narrative) [facility] XR Wrist - left 3 [facility] Radiology Study observation (narrative) [facility] [facility] Creatinineon 04-23-2024 Creatinine [Mass/Vol] 1.1 mg/dL 0.7 - 1.2 mg/dL [facility] Est, Glom Filt Rate 80 - [facility] [employer] Comment on above: These results are not [...] following therapy that affects renal tubular secretion. [employer] Benzodiazepines Screen Ql (U )on 03-26-2024 Benzodiazepines Ql (U) Negative Normal NEG [facility] Comment on above: Result Comment: Leon odiazepines screening cut off value = 200 ng/mL This report is intended for use in clinical monitoring or management of patients. Performed By: #### 1 4316-4 #### [facility] ([id number]) [address], [address] [place] [address] CCL GENERIC ORDERon 03-26-20 TEST NAME UQNTPP Normal [facility] Comment on above: Performed By: #### C GO #### [facility] ([id number]) [address] [place] [id number] TEST RESULT See Below Normal [facility] Comment on above: [...] carboxylic acid (THCA) is a metabolite of sroay-8-ccebnewfuaerapyuqrsh which is the main active component of marijuana. Fentanyl, Urine <6 ng/mL <6 Buprenorphine, Ur <20 ng/mL <20 Methadone Urine <16 ng/mL <16 Methadone metabolite Urine <6 ng/mL <6 EDDP is a metabolite of methadone. Note See Below This test is for medical use only. This test was developed and its performance characteristics determined by [facility] ([facility] It has not been cleared or approved by the FDA. [facility] is regulated under CLIA as qualified to perform high-complexity testing. This test is used for clinical purposes. It should not be regarded as investigational or for research. Specimen Validity Quality See below Specimen quality results within acceptable limits Specimen Validity Creatinine 14.5 L mg/dL 20.0-300.0 Specimen Validity PH 7.2 4.5-8.0 Specimen Validity Specific [place] 1.005 1.003-1.035 Specimen Validity Oxidants <38 mg/L <200 Specimen Validity Nitrites <50 mg/L <500 Specimen Validity Chromate <10 mg/L <50 Test Performed By: [facility] [address] [place] [address] Alterations Tailor: Yakov Gurrola III, M.D. CLIA #[id number] Performed By: #### C GO #### [facility] ([id number]) [address] [place] [address] Laboratory comment Jacinto (Repo rt)on 03-26-2024 UNLISTED LAB TEST Sent to reference lab Normal [facility] Comment on above: Performed By: #### C GO #### [facility] ([id number]) [address] [place] [address] Basic Metabolic Panelon 05- Anion gap [Moles/Vol] 11 mmol/L 9 - 17 mmol/L [facility] Calcium [Mass/Vol] 9.6 mg/dL 8.6 - 10. 4 mg/dL [facility] Chloride [Moles/Vol] 98 mmol/L 98 - 10 7 mmol/L [facility] CO2 [Moles/Vol] 26 mmol/L 20 - 31 mmol/L [facility] Creatinine [Mass/Vol] 1.1 mg/dL 0.7 - 1.2 mg/dL [facility] Est, Glom Filt Rate 80 - PINF [facility] Comment on above: These results are [...] 132 mg/dL High 70 - 99 mg/dL [facility] Interpretation and review of laboratory results Abnormal [facility] Potassium [Moles/Vol] 4.1 mmol/L 3.7 - 5.3 mmol/L [facility] Sodium [Moles/Vol] 135 mmol/L 135 - 144 mmol/L [facility] Urea nitrogen [Mass/Vol] 10 mg/dL 6 - 20 mg/dL [facility] Urea nitrogen/Creatinine [Mass ratio] 9 mg/mg 9 - 20 [facility] Brain Natriuretic Peptideon 03-17-2024 Natriuretic peptide B (Bld) [Mass/Vol] pg/mL NINF - 300 pg/mL [facility] Comment on above: An age-independent cutoff point of 300 pg/ml has a 98% negative predictive value excluding acute heart failure. [facility] CBC with Auto Differentialon 03-17-2024 Basophils (Bld) [#/Vol] 0.04 10*3/uL [facility] Basophils/100 WBC (Bld) 1 % 0 - 2 % [facility] Eosinophils (Bld) [#/Vol] 0.05 10*3/uL [facility] Eosinophils/100 WBC (Bld) 1 % 1 - 4 % [facility] Erythrocyte distribution width (RBC) [Ratio] 12.0 % 11.8 - 14.4 % [facility] Hematocrit (Bld) [Volume fraction] 38.6 % Low 40.7 - 50.3 % [facility] Hemoglobin (Bld) [Mass/Vol] 12.8 g/dL Low 13.0 - 17.0 g/dL [facility] Immature granulocytes (Bld) [#/Vol] 0.07 10*3/uL [facility] Immature granulocytes/100 WBC (Bld) 1 % High 0 [facility] Interpretation and review of laboratory results Abnormal [facility] Lymphocytes/100 WBC (Bld) 27 % 24 - 43 % [facility] Lymphocytes/100 WBC (Bld) 2.40 % [facility] MCH (RBC) [Entitic mass] 28.8 pg 25.2 - 33.5 pg [facility] MCHC (RBC) [Mass/Vol] 33.2 g/dL 28.4 - 34.8 g/dL [facility] MCV (RBC) [Entitic vol] 86.9 fL 82.6 - 102.[address] [facility] Monocytes/100 WBC (Bld) 10 % 3 - 12 % [facility] Monocytes/100 WBC (Bld) 0.86 % [facility] Neutrophils/100 WBC (Bld) 60 % 36 - 65 % [facility] Nucleated RBC/100 WBC (Bld) [Ratio] 0.0 % 0.0 per 100 WBC [facility] Platelet mean volume (Bld) [Entitic vol] 9.2 fL 8.1 - 13.5 fL [facility] Platelets (Bld) [#/Vol] 277 10*3/uL [facility] RBC (Bld) [#/Vol] 4.44 10*6/uL 4.21 - 5.7 7 m/uL [facility] Segmented neutrophils/100 WBC (Bld) 5.44 % [facility] WBC other (Bld) [#/Vol] 8.9 [facility] No Panel Informationon 03-17 [facility] Portable XR Chest AP single viewon 03-17-2024 No radiographic evid ence of acute cardiopulmonary process. [facility] CONSOLIDATED EXAMINATION: ONE XRAY VIEW OF THE CHEST 03/17/2024 2:11 pm COMPARISON: 01/31/2024 HISTORY: ORDERING SYSTEM PROVIDED HISTORY: chest pain TECHNOLOGIST PROVIDED HISTORY: chest pain FINDINGS: The lungs appear clear. The heart and mediastinal structures appear unremarkable. 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 There is a spinal stimulator in the midthoracic spine. There is no change from prior examination [facility] CON[facility] Ernie Gutiérrez MD - 03/17/2024 [...] No radiographic evidence of acute cardiopulmonary process. [facility] Radiology Study observation (narrative) [facility] Portable XR Chest AP single viewOrdered By: Ernie Gutiérrez on 03-17-2024 [facility] Work Phone: Troponinon 03-17-2024 Troponin I.cardiac High sensitivity method [Mass/Vol] 11 ng/L 0 - 22 ng/L [facility] Comment on above: High Sensitivity Tro ponin values cannot be compared with other Troponin methodologies. [facility] Troponin I.cardiac High sensitivity method [Mass/Vol] 11 ng/L 0 - 22 ng/L [facility] Comment on above: High Sensitivity Tro ponin values cannot be compared with other Troponin methodologies. Benzodiazepines Screen Ql (U )on 01-21-2024 Benzodiazepines Ql (U) Negative Normal NEG [facility] Comment on above: Result Comment: Leon odiazepines screening cut off value = 200 ng/mL This report is intended for use in clinical monitoring or management of patients. Performed By: #### 1 [id number] #### [facility] ([id number]) [address] [facility], [address] [place] [address] CCL GENERIC ORDERon 01-21-20 TEST NAME UQNTPP QUANTITATIVE PAIN PANEL, URINE Normal [facility] Comment on above: Performed By: #### C GO #### [facility] ([id number]) [address] [place] [address] TEST RESULT See Below Normal [facility] Comment on above: Result Comment: NOTE TEST RESULT FLAG UNIT REF.RANGE ----- Specimen Validity Quality See below Specimen quality results within acceptable limits Specimen Validity Creatinine 16.2 L mg/dL 20.0-300.0 Specimen Validity PH 6.6 4.5-8.0 Specimen Validity Specific [place] 1.005 1.003-1.035 Specimen Validity Oxidants <38 mg/L [...] carboxylic acid (THCA) is a metabolite of mmczp-5-mxpapcnogmwoyukusvsg which is the main active component of marijuana. Fentanyl, Urine <6 ng/mL <6 Buprenorphine, Ur <20 ng/mL <20 Methadone Urine <16 ng/mL <16 Methadone metabolite Urine <6 ng/mL <6 EDDP is a metabolite of methadone. Note See Below This test is for medical use only. This test was developed and its performance characteristics determined by [facility]'s [facility] Pathology and Laboratory Medicine [employer] ([facility]). It has not been cleared or approved by the FDA. [facility] is regulated under CLIA as qualified to perform high-complexity testing. This test is used for clinical purposes. It should not be regarded as investigational or for research. QUANTITATIVE PAIN PANEL, URINE Test Performed By: [facility] [address] [place] [address] Alterations Tailor: Stephane Lopez IIIIA #[id number] Performed By: #### C GO #### [facility] ([id number]) [address] [place] [address] Laboratory comment Jacinto (Repo rt)on 01-21-2024 UNLISTED LAB TEST Sent to reference lab Normal [facility] Comment on above: Performed By: #### C GO #### [facility] ([id number]) [address] [place] [address] Glucose Glucometer (BldC) [M ass/Vol]on 01-14-2024 Glucose [Mass/Vol] 91 mg/dL Normal 65-99 [facility] Ironon 11-30-2023 Iron [Mass/Vol] 95 ug/dL 59 - 158 ug/dL [facility] [employer] [facility] Microscopic Urinalysison Bacteria LM Ql (Urine sed) TRACE Abnormal None [facility] Epithelial cells LM.HPF (Urine sed) [#/Area] None [facility] Interpretation and review of laboratory results Abnormal [facility] RBC LM.HPF (Urine sed) [#/Area] None [facility] WBC LM.HPF (Urine sed) [#/Area] None [facility] [employer] [facility] [employer] [facility] No Panel Informationon 11-30 [facility] Urinalysis with Reflex to Cu ltureon 11-30-2023 Bilirubin Ql (U) Negative NEGATIVE [facility] [employer] [facility] Clarity (U) Clear Clear [facility] Color (U) Yellow Yellow [facility] [...] Nitrite Ql (U) Negative NEGATIVE [facility] [employer] pH (U) 6.0 [pH] 5.0 - 9.0 [facility] Protein (U) [Mass/Vol] Negative NEGATIVE mg/dL [facility] Specific gravity (U) [Rel density] Low 1.010 - 1.020 [facility] Urobilinogen Qn (U) Normal 0.0 - 1. 0 EU/dL [facility] Vitamin D 25 Hydroxyon 11-30 25-hydroxyvitamin D3 [Mass/Vol] 80.7 ng/mL 29.9 - PINF ng/mL [facility] Comment on above: Reference Range: Vitamin D status Range Deficiency <20 ng/mL Mild Deficiency 20-30 ng/mL Sufficiency 30-100 ng/mL Toxicity >100 ng/mL Nuclear stress test with justino cardial perfusionon 07-06-2023 Baseline Diastolic BP 80 mmHg [facility] [employer] [facility] Baseline HR 71 bpm [facility] [employer] [facility] Baseline Systolic BP 116 mmHg [facility] [employer] [facility] Nuc Stress EF 81 % [facility] Recovery Stage 1 BP 120/74 mmHg [facility] S ECOJESSY [facility] Recovery Stage 1 Duration 0 min:sec [facility] Recovery Stage 1 HR 98 bpm [facility] S ECOJESSY [facility] Recovery Stage 2 Duration 1 min:sec [facility] Recovery Stage 2 HR 83 bpm [facility] S ECOJESSY [facility] Recovery Stage 3 Duration 3 min:sec [facility] Recovery Stage 3 HR 75 bpm [facility] Recovery Stage 4 BP 114/68 mmHg [facility]IA [facility] Recovery Stage 4 Duration 5 min:sec [facility] Recovery Stage 4 HR 71 bpm [facility] S [facility]JESSY [facility] Stress Diastolic BP 74 mmHg [facility]IA S ECOJESSY [facility] Stress Peak HR 100 bpm [facility] Stress Percent HR Achieved 60 % ALTAGRACIA [facility] [employer] [facility] Stress Rate Pressure Product 25879 bpm*mmHg [facility] Stress Systolic BP 120 mmHg [facility] [employer] [facility] Stress Target HR 167 bpm [facility] ECG: Resting ECG demonstrates normal sinus rhythm. [...] stress end diastolic cavity size is normal. [facility] CV RPACS STRESS [facility] [employer] [facility] Nuclear stress test with justino cardial perfusionon 07-05-2023 Radiology Study observation (narrative) [facility] [employer] [facility] XR CHEST (2 VW)on 12-09-2019 XR [...] Kp Bhatia MD 12/09/19 Final result Normal [facility] XR HIP 2-3 VW W PELVIS [...] technology. Final report electronically signed by Dr. Parvez Seymour on 11/17/2019 4:08 PM Interpreted by: Parvez Seymour MD Signed by: Parvez Seymour MD 11/17/19 Final result Normal [facility] XR KNEE RIGHT (MIN 4 VIEWS)o [...] technology. Final report electronically signed by Dr. Parvez Seymour on 11/17/2019 4:48 PM Interpreted by: Parvez Seymour MD Signed by: Parvez Seymour MD 11/17/19 Final result Normal [facility] Vital Signs Date Time Vital Sign Value Performing Clinician Facility 06-18-2025 18:34-0400 SaO2% (BldA) [Mass fraction] 93 % Dmitry Tierney MD Work Phone: [facility] [facility] 06-18-2025 18:33-0400 Diastolic blood pressure 77 mm[Hg] Dmitry Tierney MD Work Phone: [facility] [facility] 06-18-2025 18:33-0400 Systolic blood pressure 140 mm[Hg] Dmitry Tierney MD Work Phone: [facility] 06-18-2025 17:59-0400 Heart rate 94 /min Dmitry Tierney MD Work Phone: [facility] [facility] 06-18-2025 17:59-0400 Respiratory rate 19 /min Dmitry Tierney MD Work Phone: [facility] 06-18-2025 14:55-0400 Body height 177.8 cm Dmitry Tierney MD Work Phone: [facility] 06-18-2025 14:55-0400 Body mass index (BMI) [Ratio] 29.7 kg/m2 Dmitry Tierney MD Work Phone: [facility] 06-18-2025 14:55-0400 Body temperature 99.1 [degF] Dmitry Tierney MD Work Phone: [facility] 06-18-2025 14:55-0400 Body weight 93.89 kg Dmitry Tierney MD Work Phone: [facility] 05-30-2025 21:13-0400 Respiratory rate 18 /min Luis Alberto Graves MD Work Phone: [employer] 05-30-2025 15:25-0400 Body temperature 99 [degF] Luis Alberto Graves MD Work Phone: [facility] 05-30-2025 15:25-0400 Diastolic blood pressure 82 mm[Hg] Luis Alberto wheatley MD Work Phone: [facility] 05-30-2025 15:25-0400 Heart rate 86 /min Luis Alberto Graves MD Work Phone: [facility] 05-30-2025 15:25-0400 SaO2% (BldA) [Mass fraction] 95 % Luis Alberto Graves MD Work Phone: [facility] 05-30-2025 15:25-0400 Systolic blood pressure 123 mm[Hg] Luis Alberto hudson MD Work Phone: [facility] 05-27-2025 10:00-0400 SaO2% (BldA) [Mass fraction] 93 % Jae Baldwin MD Work Phone: [employer] 05-27-2025 08:52-0400 Body height 177.8 cm Jae Baldwin MD Work Phone: [facility] [facility] 05-27-2025 08:04-0400 Body temperature 97.59 [degF] Jae Baldwin MD Work Phone: [facility] 05-27-2025 08:04-0400 Diastolic blood pressure 80 mm[Hg] Jae Walls i, MD Work Phone: [facility] 05-27-2025 08:04-0400 Heart rate 78 /min Jae Baldwin MD Work Phone: [facility] [employer] 05-27-2025 08:04-0400 Respiratory rate 18 /min Jae Baldwin MD Work Phone: [facility] 05-27-2025 08:04-0400 Systolic blood pressure 123 mm[Hg] Jae Baldwin MD Work Phone: [facility] [employer] 05-27-2025 04:34-0400 Body mass index (BMI) [Ratio] 31.19 kg/m2 Jae Baldwin MD Work Phone: [facility] 05-27-2025 04:34-0400 Body weight 98.61 kg Jae Baldwin MD Work Phone: [facility] 02-24-2025 12:37-0400 Body temperature 97 [degF] Farida Daleyis DO Work Phone: [facility] 02-24-2025 11:30-0400 Body height 177.8 cm Farida Daleyis DO Work Phone: [facility] 02-24-2025 11:30-0400 Body mass index (BMI) [Ratio] 27.98 kg/m2 Farida Gibbons DO Work Phone: [facility] 02-24-2025 11:30-0400 Body weight 88.45 kg Farida Shai DO Work Phone: [facility] 02-24-2025 11:30-0400 Diastolic blood pressure 82 mm[Hg] Farida Gibbons DO Work Phone: [facility] 02-24-2025 11:30-0400 Heart rate 69 /min Farida Shai DO Work Phone: [facility] 02-24-2025 11:30-0400 Respiratory rate 20 /min Farida Shai DO Work Phone: [facility] 02-24-2025 11:30-0400 SaO2% (BldA) [Mass fraction] 98 % Farida Gibbons DO Work Phone: [facility] 02-24-2025 11:30-0400 Systolic blood pressure 123 mm[Hg] Farida Gibbons DO Work Phone: [facility] 01-23-2025 16:20-0400 Diastolic blood pressure 81 mm[Hg] Dariusz Ring Work Phone: [facility] 01-23-2025 16:20-0400 Heart rate 65 /min Dariusz Pratt MD Work Phone: [facility] 01-23-2025 16:20-0400 Respiratory rate 16 /min Dariusz Pratt MD Work Phone: [facility] 01-23-2025 16:20-0400 SaO2% (BldA) [Mass fraction] 96 % Dariusz Pratt MD Work Phone: [facility] 01-23-2025 16:20-0400 Systolic blood pressure 130 mm[Hg] Dariusz Pratt MD Work Phone: [facility] 01-23-2025 15:54-0400 Body temperature 97.5 [degF] Dariusz Pratt MD Work Phone: [facility] 01-23-2025 15:04-0400 Body height 177.8 cm Dariusz Pratt MD Work Phone: [facility] 01-23-2025 15:04-0400 Body mass index (BMI) [Ratio] 27.69 kg/m2 Dariusz Pratt MD Work Phone: [facility] 01-23-2025 15:04-0400 Body weight 87.54 kg Dariusz Pratt MD Work Phone: [facility] 01-05-2025 15:30-0400 Diastolic blood pressure 79 mm[Hg] Remy Hardin MD Work Phone: [facility] 01-05-2025 15:30-0400 Heart rate 89 /min Remy Hardin MD Work Phone: [facility] 01-05-2025 15:30-0400 Respiratory rate 16 /min Remy Hardin MD Work Phone: [facility] 01-05-2025 15:30-0400 SaO2% (BldA) [Mass fraction] 92 % Remy Hardin MD Work Phone: [facility] 01-05-2025 15:30-0400 Systolic blood pressure 137 mm[Hg] Remy Hardin MD Work Phone: [facility] 01-05-2025 14:04-0400 Body height 177.8 cm Remy Hardin MD Work Phone: [facility] 01-05-2025 14:04-0400 Body mass index (BMI) [Ratio] 27.26 kg/m2 Remy Hardin MD Work Phone: [facility] 01-05-2025 14:04-0400 Body temperature 97.9 [degF] Remy Hardin MD Work Phone: [facility] 01-05-2025 14:04-0400 Body weight 86.18 kg Remy Hardin MD Work Phone: [facility] 12-05-2024 17:46-0500 Diastolic blood pressure 86 mm[Hg] Dmitry Tierney MD Work Phone: [facility] [facility] 12-05-2024 17:46-0500 Heart rate 90 /min Dmitry Tierney MD Work Phone: [facility] 12-05-2024 17:46-0500 Respiratory rate 18 /min Dmitry Tierney MD Work Phone: [facility] 12-05-2024 17:46-0500 SaO2% (BldA) [Mass fraction] 96 % Dmitry Tierney MD Work Phone: [facility] 12-05-2024 17:46-0500 Systolic blood pressure 145 mm[Hg] Dmitry Tierney MD Work Phone: [facility] 12-05-2024 16:01-0500 Body height 177.8 cm Dmitry Tierney MD Work Phone: [facility] 12-05-2024 16:01-0500 Body mass index (BMI) [Ratio] 27.26 kg/m2 Dmitry Tierney MD Work Phone: [facility] 12-05-2024 16:01-0500 Body temperature 98.2 [degF] Dmitry Tierney MD Work Phone: [facility] 12-05-2024 16:01-0500 Body weight 86.18 kg Dmitry Marifer REARDON Work Phone: [facility] 11-30-2024 14:17-0500 Body height 177.8 cm Eliana Gian FRESS Work Phone: [facility] 11-30-2024 14:17-0500 Body mass index (BMI) [Ratio] 27.26 kg/m2 Eliana Gian FRESS Work Phone: [facility] 11-30-2024 14:17-0500 Body temperature 98.6 [degF] Eliana Gian FRESS Work Phone: [facility] 11-30-2024 14:17-0500 Body weight 86.18 kg Eliana Gian FRESS Work Phone: [facility] 11-30-2024 14:17-0500 Diastolic blood pressure 94 mm[Hg] Eliana Gian FRESS Work Phone: [facility] 11-30-2024 14:17-0500 Heart rate 88 /min Eliana Gian FRESS Work Phone: [facility] 11-30-2024 14:17-0500 Respiratory rate 16 /min Koremer FRESS Work Phone: [facility] 11-30-2024 14:17-0500 Systolic blood pressure 137 mm[Hg] Eliana Gian FRESS Work Phone: [facility] 09-05-2024 18:28-0500 Body mass index (BMI) [Ratio] 30.71 kg/m2 Dariusz Smith MD Work Phone: [facility] 09-05-2024 18:28-0500 Body temperature 99.7 [degF] Dariusz Smith MD Work Phone: [facility] 09-05-2024 18:28-0500 Body weight 97.07 kg Dariusz Smith MD Work Phone: [facility] 09-05-2024 18:28-0500 Diastolic blood pressure 90 mm[Hg] Dariusz Smith MD Work Phone: [facility] 09-05-2024 18:28-0500 Heart rate 95 /min Dariusz Smith MD Work Phone: [facility] 09-05-2024 18:28-0500 Respiratory rate 16 /min Dariusz Smith MD Work Phone: [facility] 09-05-2024 18:28-0500 SaO2% (BldA) [Mass fraction] 95 % Dariusz Smith MD Work Phone: [facility] 09-05-2024 18:28-0500 Systolic blood pressure 136 mm[Hg] Dariusz Smith MD Work Phone: [facility] 08-28-2024 17:33-0500 SaO2% (BldA) [Mass fraction] 100 % ELIANA SPRINGER [facility] Comment on above: Order Comment: Specimen Type: ARTERIAL B LOOD SPECIMENOrdering Facility: [facility] Address: [address] [place] [address] Performed By: #### A LLBG ####[facility] [id number] [address] [place] 08-28-2024 16:01-0500 SaO2% (BldA) [Mass fraction] 100 % ELIANA GIAN [facility] Comment on above: Order Comment: Specimen Type: ARTERIAL B LOOD SPECIMENOrdering Facility: [facility] Address: [address] [place] [address] Performed By: #### A LLMG ####[facility] [id number] [place] [id number] [place] 08-28-2024 14:06-0500 SaO2% (BldA) [Mass fraction] 99 % ELIANA SPRINGER [facility] Comment on above: Order Comment: Specimen Type: ARTERIAL B LOOD SPECIMENOrdering Facility: [facility] Address: [address] [place] [address] Performed By: #### A LLMG ####[facility] [id number] [place] [id number] [place] 08-22-2024 11:24-0400 Body height 177.8 cm Pac 7 Work Phone: [facility] 08-22-2024 11:24-0400 Body mass index (BMI) [Ratio] 30.37 kg/m2 Pacc 7 Work Phone: [facility] 08-22-2024 11:24-0400 Body temperature 98.29 [degF] Pacc 7 Work Phone: [facility] 08-22-2024 11:24-0400 Body weight 96 kg Pacc 7 Work Phone: [facility] 08-22-2024 11:24-0400 Diastolic blood pressure 78 mm[Hg] Pacc 7 Work Phone: [facility] 08-22-2024 11:24-0400 Heart rate 78 /min Pacc 7 Work Phone: [facility] 08-22-2024 11:24-0400 SaO2% (BldA) [Mass fraction] 98 % Pacc 7 Work Phone: [facility] 08-22-2024 11:24-0400 Systolic blood pressure 125 mm[Hg] Pacc 7 Work Phone: [facility] 08-11-2024 11:56-0400 Body height 177.8 cm Rohit Miller MD Work Phone: [facility] 08-11-2024 11:56-0400 Body mass index (BMI) [Ratio] 30.71 kg/m2 Rohit Miller MD Work Phone: [facility] 08-11-2024 11:56-0400 Body temperature 98.2 [degF] Rohit Miller MD Work Phone: [facility] 08-11-2024 11:56-0400 Body weight 97.07 kg Rohit Miller MD Work Phone: [facility] 08-11-2024 11:56-0400 Diastolic blood pressure 82 mm[Hg] Rohit Ring Work Phone: [facility] 08-11-2024 11:56-0400 Heart rate 68 /min Rohit Miller MD Work Phone: [facility] 08-11-2024 11:56-0400 Respiratory rate 16 /min Rohit Miller MD Work Phone: [facility] 08-11-2024 11:56-0400 SaO2% (BldA) [Mass fraction] 97 % Rohit Miller MD Work Phone: [facility] 08-11-2024 11:56-0400 Systolic blood pressure 140 mm[Hg] Rohit Miller MD Work Phone: [facility] 08-08-2024 13:21-0400 Body temperature 97.7 [degF] Eliana Gian ECONOMICS ANALYST - PACKAGING SALES REPRESENTATIVE Work Phone: [facility] [facility] 08-08-2024 13:21-0400 Diastolic blood pressure 79 mm[Hg] Eliana Gian ECONOMICS ANALYST - PACKAGING SALES REPRESENTATIVE Work Phone: [facility] 08-08-2024 13:21-0400 Heart rate 87 /min Eliana Gian ECONOMICS ANALYST - PACKAGING SALES REPRESENTATIVE Work Phone: [facility] 08-08-2024 13:21-0400 Respiratory rate 16 /min Eliana Gian ECONOMICS ANALYST - PACKAGING SALES REPRESENTATIVE Work Phone: [facility] 08-08-2024 13:21-0400 SaO2% (BldA) [Mass fraction] 97 % Eliana Springer ECONOMICS ANALYST - [facility] Work Phone: [facility] 08-08-2024 13:21-0400 Systolic blood pressure 129 mm[Hg] Eliana Springer ECONOMICS ANALYST - [facility] Work Phone: [facility] 08-05-2024 17:30-0400 Body height 177.8 cm Joycelyn Smith MD Work Phone: [facility] 08-05-2024 17:30-0400 Body mass index (BMI) [Ratio] 30.71 kg/m2 Joycelyn Smith MD Work Phone: [facility] [employer] 08-05-2024 17:30-0400 Body temperature 98.2 [degF] Joycelyn Smith MD Work Phone: [facility] [employer] 08-05-2024 17:30-0400 Body weight 97.07 kg Joycelyn Smith MD Work Phone: [facility] [employer] 08-05-2024 17:30-0400 Diastolic blood pressure 82 mm[Hg] Joycelyn Smith MD Work Phone: [facility] [employer] 08-05-2024 17:30-0400 Heart rate 84 /min Joycelyn Smith MD Work Phone: [facility] [employer] 08-05-2024 17:30-0400 Respiratory rate 16 /min Joycelyn Smith MD Work Phone: [facility] [employer] 08-05-2024 17:30-0400 SaO2% (BldA) [Mass fraction] 95 % Joycelyn Smith MD Work Phone: [facility] [employer] 08-05-2024 17:30-0400 Systolic blood pressure 133 mm[Hg] Joycelyn Smith MD Work Phone: [employer] 07-28-2024 08:50-0400 Diastolic blood pressure 69 mm[Hg] Sheyla Mensah MD Work Phone: [facility] 07-28-2024 08:50-0400 Heart rate 54 /min Sheyla Mensah MD Work Phone: [facility] 07-28-2024 08:50-0400 Respiratory rate 16 /min Sheyla Mensah MD Work Phone: [facility] 07-28-2024 08:50-0400 SaO2% (BldA) [Mass fraction] 98 % Sheyla Mensah MD Work Phone: [facility] 07-28-2024 08:50-0400 Systolic blood pressure 115 mm[Hg] Sheyla Ring Work Phone: [facility] 07-28-2024 08:24-0400 Body temperature 97.5 [degF] Sheyla Mensah MD Work Phone: [facility] 07-28-2024 07:36-0400 Body height 177.8 cm Sheyla Mensah MD Work Phone: [facility] 07-28-2024 07:36-0400 Body mass index (BMI) [Ratio] 30.71 kg/m2 Sheyla Mensah MD Work Phone: [facility] 07-28-2024 07:36-0400 Body weight 97.07 kg Sheyla Mensah MD Work Phone: [facility] 07-22-2024 14:36-0400 Body temperature 97.7 [degF] SARAH Jacobson MD Work Phone: [facility] 07-22-2024 14:36-0400 Body weight 97.5 kg SARAH Jacobson MD Work Phone: [facility] 07-22-2024 14:36-0400 Diastolic blood pressure 83 mm[Hg] SARAH Jacobson MD Work Phone: [facility] 07-22-2024 14:36-0400 Heart rate 79 /min SARAH Jacobson MD Work Phone: [facility] 07-22-2024 14:36-0400 Respiratory rate 20 /min SARAH Jacobson MD Work Phone: [facility] 07-22-2024 14:36-0400 SaO2% (BldA) [Mass fraction] 98 % SARAH Jacobson MD Work Phone: [facility] 07-22-2024 14:36-0400 Systolic blood pressure 146 mm[Hg] SARAH Jacobson MD Work Phone: [facility] 04-26-2024 11:33-0400 Body temperature 98.29 [degF] Max Addison Jr., MD Work Phone: [facility] [employer] 04-26-2024 11:33-0400 Diastolic blood pressure 87 mm[Hg] Max London MD Work Phone: [facility] [employer] 04-26-2024 11:33-0400 Heart rate 78 /min Max Addison Jr., MD Work Phone: [email or web address] 04-26-2024 11:33-0400 Respiratory rate 18 /min Max Addison Jr., MD Work Phone: [facility] [employer] 04-26-2024 11:33-0400 SaO2% (BldA) [Mass fraction] 99 % Max Addison Jr., MD Work Phone: [facility] [employer] 04-26-2024 11:33-0400 Systolic blood pressure 131 mm[Hg] Max Addison Jr., MD Work Phone: [facility] [employer] 03-17-2024 16:15-0400 Diastolic blood pressure 59 mm[Hg] Tegan Arita D O Work Phone: [employer] 03-17-2024 16:15-0400 Heart rate 57 /min Tegan Arita DO Work Phone: [employer] 03-17-2024 16:15-0400 Respiratory rate 13 /min Tegan Arita DO Work Phone: [employer] 03-17-2024 16:15-0400 SaO2% (BldA) [Mass fraction] 96 % Tegan Galvanbal DO Work Phone: [email or web address] 03-17-2024 16:15-0400 Systolic blood pressure 117 mm[Hg] Tegan Arita DO Work Phone: [email or web address] 03-17-2024 13:56-0400 Body height 177.8 cm Tegan Arita DO Work Phone: [email or web address] 03-17-2024 13:56-0400 Body mass index (BMI) [Ratio] 30.56 kg/m2 Tegan Arita DO Work Phone: [email or web address] 03-17-2024 13:56-0400 Body temperature 98.4 [degF] Tegan Galvanbal DO Work Phone: [email or web address] 03-17-2024 13:56-0400 Body weight 96.62 kg Tegan Galvanbal DO Work Phone: [email or web address] 02-25-2024 12:03-0400 Body height 177.8 cm Joana Stratton MD Work Phone: [facility] [employer] [facility] 02-25-2024 12:03-0400 Body mass index (BMI) [Ratio] 29.41 kg/m2 Joana Stratton MD Work Phone: [facility] [employer] [facility] 02-25-2024 12:03-0400 Body weight 92.99 kg Joana Stratton MD Work Phone: [facility] [employer] [facility] 02-25-2024 12:03-0400 Diastolic blood pressure 78 mm[Hg] Joana Ring Work Phone: [facility] [employer] [facility] 02-25-2024 12:03-0400 Heart rate 71 /min [facility] 02-25-2024 12:03-0400 Respiratory rate 16 /min Joana Stratton MD Work Phone: [facility] [employer] [facility] 02-25-2024 12:03-0400 Systolic blood pressure 112 mm[Hg] Joana Stratton MD Work Phone: [facility] 01-21-2024 13:08-0400 Body height 177.8 cm Joana Stratton MD Work Phone: [facility] 01-21-2024 13:08-0400 Body mass index (BMI) [Ratio] 29.41 kg/m2 Joana Stratton MD Work Phone: [facility] [employer] [facility] 01-21-2024 13:08-0400 Body weight 92.99 kg Joana Stratton MD Work Phone: [facility] 01-21-2024 13:08-0400 Diastolic blood pressure 77 mm[Hg] Joana Ring Work Phone: [facility] 01-21-2024 13:08-0400 Heart rate 73 /min Joana Stratton MD Work Phone: [facility] 01-21-2024 13:08-0400 Respiratory rate 16 /min Joana Stratton MD Work Phone: [facility] 01-21-2024 13:08-0400 Systolic blood pressure 124 mm[Hg] Joana Stratton MD Work Phone: [facility] 12-24-2023 12:46-0500 Body height 177.8 cm Joana Stratton MD Work Phone: [facility] 12-24-2023 12:46-0500 Body mass index (BMI) [Ratio] 29.41 kg/m2 Joana Stratton MD Work Phone: [facility] 12-24-2023 12:46-0500 Body weight 92.99 kg Joana Stratton MD Work Phone: [facility] 12-24-2023 12:46-0500 Diastolic blood pressure 85 mm[Hg] Joana Ring Work Phone: [facility] 12-24-2023 12:46-0500 Heart rate 83 /min Joana Stratton MD Work Phone: [facility] 12-24-2023 12:46-0500 Respiratory rate 18 /min Joana Stratton MD Work Phone: [facility] 12-24-2023 12:46-0500 Systolic blood pressure 139 mm[Hg] Joana Stratton MD Work Phone: [facility] 11-21-2023 14:09-0500 Body height 177.8 cm Slime Romano ECONOMICS ANALYST-PACKAGING SALES REPRESENTATIVE Work Phone: [facility] 11-21-2023 14:09-0500 Body mass index (BMI) [Ratio] 29.41 kg/m2 Slime Romano ECONOMICS ANALYST-PACKAGING SALES REPRESENTATIVE Work Phone: [facility] 11-21-2023 14:09-0500 Body weight 92.99 kg Slime Romano ECONOMICS ANALYST-PACKAGING SALES REPRESENTATIVE Work Phone: [facility] 11-21-2023 14:09-0500 Diastolic blood pressure 78 mm[Hg] Slime Romano ECONOMICS ANALYST-PACKAGING SALES REPRESENTATIVE Work Phone: [facility] 11-21-2023 14:09-0500 Heart rate 84 /min Slime Romano ECONOMICS ANALYST-PACKAGING SALES REPRESENTATIVE Work Phone: [facility] 11-21-2023 14:09-0500 Respiratory rate 18 /min Slime Romano ECONOMICS ANALYST-PACKAGING SALES REPRESENTATIVE Work Phone: [facility] 11-21-2023 14:09-0500 Systolic blood pressure 121 mm[Hg] Slime Romano ECONOMICS ANALYST-PACKAGING SALES REPRESENTATIVE Work Phone: [facility] 10-24-2023 13:45-0500 Body height 177.8 cm Slime Romano ECONOMICS ANALYST-PACKAGING SALES REPRESENTATIVE Work Phone: [facility] 10-24-2023 13:45-0500 Body mass index (BMI) [Ratio] 29.41 kg/m2 Slime Romano ECONOMICS ANALYST-PACKAGING SALES REPRESENTATIVE [facility] 10-24-2023 13:45-0500 Body weight 92.99 kg Slime Romano ECONOMICS ANALYST-PACKAGING SALES REPRESENTATIVE [facility] 10-24-2023 13:45-0500 Diastolic blood pressure 85 mm[Hg] Slime Romano ECONOMICS ANALYST-PACKAGING SALES REPRESENTATIVE [facility] 10-24-2023 13:45-0500 Heart rate 82 /min Slime Romano ECONOMICS ANALYST-PACKAGING SALES REPRESENTATIVE [facility] 10-24-2023 13:45-0500 Respiratory rate 18 /min Slime Romano ECONOMICS ANALYST-PACKAGING SALES REPRESENTATIVE [facility] 10-24-2023 13:45-0500 Systolic blood pressure 128 mm[Hg] Slime Romano ECONOMICS ANALYST-PACKAGING SALES REPRESENTATIVE Work Phone: [facility] [employer] [facility] Encounters Encounter Date Encounter Type Care Provider Facility Start: 08-07-2025 End: 08-07-2025 Bamboo [employer] Ana Laura Taveras PA Work Phone: [facility] Start: 08-07-2025 End: 08-07-2025 Bamboo flowsheet Ana Laura Taveras PA Work Phone: [facility] Start: 08-07-2025 End: 08-07-2025 ambulatory ANA LAURA TAVERAS Not Available Start: 08-07-2025 End: 08-07-2025 Office outpatient new 30 minutes [facility] Comment on above: Melanocytic nevus of trunk (Primary Dx); Sebaceous hyperplasia; Angiofibroma Start: 07-31-2025 End: 07-31-2025 ambulatory [facility] Start: 07-31-2025 End: 07-31-2025 Subsequent hospital visit by physician [facility] Laboratory Schedule [facility] Comment on above: Dysuria Start: 07-23-2025 End: 07-23-2025 Emergency department patient visit ELIANA SPRINGER [facility] Start: 07-07-2025 End: 07-07-2025 Telemedicine consultation with [...] patient visit Dmitry Tierney MD Work Phone: [facility] Emergency Department Comment on above: Pneumonia of right m iddle lobe due to infectious organism (Primary Dx); Nausea vomiting and diarrhea Start: 06-12-2025 End: 06-12-2025 Telephone encounter Kathy Bravo MD Work Phone: Endocrinology Comment on above: Forms (ADS order for m) Start: 05-31-2025 Evaluation and management of inpatient CANDIDO ALEGRE [facility] Start: 05-30-2025 End: 05-30-2025 Admission to establishment Luis Alberto Graves MD Work Phone: Altagracia Uriarte [facility] Work Phone: Start: 05-30-2025 End: 05-30-2025 Emergency department patient visit Luis Alberto Graves MD Work Phone: [facility] Emergency Department Comment on above: Medical clearance fo r psychiatric admission (Primary Dx); Depression with suicidal ideation; PTSD (post-traumatic stress disorder) Start: 05-25-2025 End: 05-27-2025 Evaluation and management of inpatient Jae Baldwin MD Work Phone: [facility] Comment on above: Right flank pain (Pr imary Dx); Pneumonia of right lower lobe due to infectious organism; RACQUEL (acute kidney injury); Acute pneumonia Start: 05-13-2025 End: 05-13-2025 ambulatory [facility] Start: 05-13-2025 End: 05-13-2025 Subsequent hospital visit by physician Eliana Springer APRN - PACKAGING SALES REPRESENTATIVE Work Phone: [facility] Comment on above: BPH with obstruction /lower urinary tract symptoms; Incomplete bladder emptying Start: 04-28-2025 End: 04-28-2025 Telephone encounter Kathy Bravo MD Work Phone: Endocrinology Comment on above: progress notes Start: 04-20-2025 End: 04-20-2025 ambulatory Eliana Springer APRN-PACKAGING SALES REPRESENTATIVE Facility: [facility] Start: 04-15-2025 ambulatory ELIEL STEPHENS [facility] Ambulatory Start: 04-03-2025 End: 04-03-2025 Telephone [...] ambulatory Rob Corado MD [facility] Start: 02-24-2025 End: 02-24-2025 Emergency department patient visit Faridaosmin Gibbons Work Phone: [facility] Emergency Department Comment on above: Contusion of finger of left hand, unspecified finger, initial encounter (Primary Dx) Start: 02-17-2025 End: 02-17-2025 Refill Kathy Bravo MD Work Phone: Endocrinology Comment on above: Refill Request Start: 02-16-2025 End: 02-18-2025 ambulatory [facility] Start: 02-16-2025 End: 02-18-2025 Subsequent hospital visit by physician [facility] Cat Scan Room [facility] Comment on above: Left lower quadrant abdominal pain; History of diverticulitis Start: 01-28-2025 End: 03-30-2025 Follow-up encounter Dariusz Pratt MD Work Phone: Gastroenterology Start: 01-23-2025 End: 01-23-2025 ambulatory [facility] Facility:[facility] Start: 01-23-2025 End: 01-23-2025 Subsequent hospital visit by physician Dariusz Pratt MD Work Phone: Gastroenterology Comment on above: IPMN (intraductal pa pillary mucinous neoplasm) [D49.0] Start: 01-16-2025 End: 01-16-2025 ambulatory Bacilio Nowak lead refiner Start: 01-07-2025 End: 01-07-2025 Orders Only Ligia Kerns RN Work Phone: General Surgery Comment on above: IPMN (intraductal pa pillary mucinous neoplasm) (Primary Dx) Start: 01-05-2025 End: 01-05-2025 ambulatory [facility] Facility:[facility] Start: 01-05-2025 End: 01-05-2025 Subsequent hospital [...] by physician Dilcia Payton Dr Room 4 [facility] Radiology Comment on above: Influenza A; [...] (Primary Dx) Start: 12-16-2024 End: 12-16-2024 ambulatory ELIANA SPRINGER [facility] Start: 12-16-2024 End: 12-16-2024 Subsequent hospital visit by physician Eliana Springer ECONOMICS ANALYST - PACKAGING SALES REPRESENTATIVE Work Phone: [facility] Comment on above: Dysuria; Vomiting and diarrhea Start: 12-12-2024 End: 12-12-2024 Orders Only Lizzy Qiu RN Work Phone: General Surgery Comment on above: IPMN (intraductal pa pillary mucinous neoplasm) (Primary Dx) Start: 12-05-2024 End: 12-05-2024 Emergency department patient visit Dmitry Tierney MD Work Phone: [facility] Emergency Department Comment on above: Rib [...] End: 11-30-2024 Emergency department patient visit ELIANA Palomo [facility] Emergency Department Comment on above: Contusion of back, u nspecified laterality, initial encounter (Primary Dx); Sprain of left hand, initial encounter; Contusion of left elbow, initial encounter Start: 11-27-2024 End: 11-27-2024 ambulatory ELIANA [facility] Start: 11-27-2024 End: 11-27-2024 Subsequent hospital visit by physician Eliana Springer ECONOMICS ANALYST - PACKAGING SALES REPRESENTATIVE Work Phone: [facility] Comment on above: Dysuria Start: 11-24-2024 End: 11-24-2024 ambulatory Danica Conklin MD Facility:[facility] Start: 11-03-2024 End: 11-03-2024 ambulatory Danica Conklin MD Facility:[facility] Start: 10-31-2024 End: 10-31-2024 ambulatory Kathy Bravo MD Work Phone: Endocrinology Comment on above: Post-pancreatectomy diabetes (HCC) (Primary Dx); Insulin pump status Start: 10-31-2024 End: 10-31-2024 Telemedicine consultation with patient Kathy Bravo MD Work Phone: Endocrinology Start: 10-20-2024 End: 10-20-2024 ambulatory Danica Conklin MD Facility:[facility] Start: 10-10-2024 End: 10-24-2024 Telephone encounter Dario Hines RN Work Phone: [facility] Comment on above: Insulin Pump Start F ollow Up Start: 10-07-2024 End: 10-07-2024 Nursing evaluation of patient and report Dario Hines RN Work Phone: [facility] Comment on above: Post-pancreatectomy diabetes (HCC) (Primary Dx) Start: 10-07-2024 End: 10-07-2024 ambulatory [facility] Facility:[facility] Start: 10-02-2024 End: 10-02-2024 Telephone encounter Kathy Bravo MD Work Phone: Endocrinology Comment on above: Forms ([facility] Insulin pump) Start: 10-02-2024 End: 10-02-2024 ambulatory Dario Hines RN Work Phone: [facility] Comment on above: Post-pancreatectomy diabetes (HCC) (Primary Dx) Start: 10-02-2024 End: 10-02-2024 Telemedicine consultation with patient Dario Hines RN Work Phone: [facility] Start: 09-30-2024 End: 09-30-2024 ambulatory ELIANA LayerER Facility:[facility] Start: 09-30-2024 End: 09-30-2024 Patient encounter procedure R Alessandro Jacobson MD Work Phone: General Surgery Comment [...] on above: Forms Start: 09-11-2024 End: 09-11-2024 Harish Jacobson MD Work Phone: General Surgery Start: 09-09-2024 End: 09-09-2024 ambulatory Kathy Bravo MD Work Phone: Endocrinology Comment on above: Post-pancreatectomy diabetes (HCC) (Primary Dx) Start: 09-09-2024 End: 09-09-2024 Telemedicine consultation with patient Kathy Bravo MD Work Phone: Endocrinology Start: 09-09-2024 End: 09-19-2024 Telephone encounter Kathy Bravo MD Work Phone: Endocrinology Comment on above: Patient Update Insurance Authorizat ion (Insulin Pump [[facility] MED[facility]]) Start: 09-05-2024 End: 09-05-2024 Emergency department patient visit Dariusz Smith MD Work Phone: [facility] ED Comment on above: Strain of [...] End: 09-04-2024 Evaluation and management of inpatient R JACOBSON Facility:[facility] Start: 08-22-2024 End: 08-22-2024 Patient encounter procedure Jhonatan Hensley PhD Work Phone: General Surgery Comment on above: IPMN (intraductal pa pillary mucinous neoplasm); Preoperative examination Start: 08-22-2024 End: 08-22-2024 Nursing evaluation of patient and report Ligia Kerns RN Work Phone: General Surgery Comment on above: Preoperative examina tion (Primary Dx) Start: 08-22-2024 End: 08-22-2024 Preprocedural examination done Ligia Kerns RN Work Phone: [facility] Work Phone: Start: 08-22-2024 End: 08-22-2024 Subsequent hospital visit by physician [facility] Radiology Comment on above: IPMN (intraductal pa pillary mucinous neoplasm) [D49.0] Start: 08-22-2024 End: 08-22-2024 ambulatory [facility] Facility:[facility] Start: 08-22-2024 End: 08-22-2024 ambulatory [facility] Facility:[facility] Start: 08-22-2024 Encounter for other preprocedural examination [facility] Start: 08-22-2024 End: 08-22-2024 Admission to establishment [facility] 7 Work Phone: Pre Anesthesia Start: 08-22-2024 End: 08-22-2024 Anesthesia consultation [facility] Main 7 Work Phone: Pre Anesthesia Comment on above: Severe persistent as thma, unspecified whether complicated (Primary Dx); 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); Dong's esophagus with dysplasia; Other chronic pancreatitis (HCC); Fatty liver; History of bowel resection; Preoperative examination Start: 08-22-2024 End: 08-22-2024 Preprocedural examination done [facility] Main Work Phone: [facility] Work Phone: Start: 08-22-2024 End: 08-22-2024 ambulatory [facility] Facility:[facility] Start: 08-22-2024 End: 08-22-2024 ambulatory Kathy [...] examination done Jesus Jacobson MD Work Phone: [facility] Start: 08-11-2024 End: 08-11-2024 Emergency department patient visit Rohit Miller MD Work Phone: [facility] ED Comment on above: Left-sided chest wal l pain (Primary Dx); Rib contusion, left, sequela Start: 08-08-2024 End: 08-08-2024 Telephone encounter Jesus Jacobson MD Work Phone: General Surgery Comment on above: Patient Update Start: 08-08-2024 End: 08-08-2024 Emergency department patient visit ELIANA SPRINGER [facility] ED Comment on above: Chest wall contusion , left, initial encounter (Primary Dx); Strain of tendon of left half of anterior chest wall Start: 08-05-2024 End: 08-05-2024 Emergency department patient visit Joycelyn Smith MD Work Phone: [facility] ED Comment on above: Other chronic pancre atitis (HCC) (Primary Dx); Epigastric pain Start: 08-05-2024 End: 08-05-2024 Telephone encounter Ligia Kerns RN Work Phone: General Surgery Start: 08-04-2024 End: 08-04-2024 Refill Jesus Jacobson MD Work Phone: General Surgery Start: 07-30-2024 End: 08-04-2024 Telephone encounter Jesus Jacobson MD Work Phone: General Surgery Comment on above: Results; Patient Que stion Start: 07-28-2024 End: 07-28-2024 Subsequent hospital visit by physician Sheyla Mensah MD Work Phone: Gastroenterology Comment on above: Cyst and pseudocyst of pancreas [K86.2, K86.3] Start: 07-24-2024 End: 07-24-2024 Telephone encounter Ligia Kerns RN Work Phone: General Surgery Start: 07-22-2024 End: 07-22-2024 Orders Only Ligia Kerns RN Work Phone: [...] Work Phone: General Surgery Comment on above: Bean Viner - O ther (Request for records) Clinic Prep Start: 07-14-2024 End: 07-14-2024 Subsequent hospital visit by physician Eliana Kenney CNP Work Phone: [facility] Laboratory Comment on above: Anemia, unspecified type; Vitamin D deficiency; Other fatigue; Prostate cancer screening Start: 07-01-2024 End: 07-01-2024 ambulatory Cristal Paul Facility:[facility] Start: 07-01-2024 End: 07-01-2024 Patient encounter procedure Cristal Paul [facility] Start: 06-26-2024 End: 06-26-2024 ambulatory LUIS F APONTE [facility] Start: 05-27-2024 ambulatory Wesly Davies Facilit y:[facility] Start: 05-24-2024 End: 05-28-2024 Telephone encounter Luna Tomlinson [facility] littlejohn Comment on above: Pancreatitis Start: 05-24-2024 End: 05-24-2024 Evaluation and management of inpatient LAURI W ANNALISE [facility] Start: 05-23-2024 ambulatory [facility] Start: 05-23-2024 End: 05-24-2024 Emergency department patient visit Jacqueline Oneal MD Facility:[facility] Start: 05-13-2024 End: 05-13-2024 ambulatory Eliana Springer ECONOMICS ANALYST-PACKAGING SALES REPRESENTATIVE Facility:[facility] Start: 05-12-2024 End: 05-12-2024 ambulatory Eliana Palomo Gian ECONOMICS ANALYST-PACKAGING SALES REPRESENTATIVE Facility:[facility] Start: 04-26-2024 End: 04-26-2024 Emergency department patient visit Max Addison MD Work Phone: [facility] ED Comment on above: Thoracic myofascial strain, initial encounter (Primary Dx); Left wrist sprain, initial encounter; Closed nondisplaced fracture of phalanx of left index finger, unspecified phalanx, initial encounter Start: 04-23-2024 End: 04-25-2024 Subsequent hospital visit by physician [facility] Scan Room [facility] Laboratory Comment on above: Cervical spinal sten osis Start: 04-03-2024 End: 04-03-2024 Refill [facility] Benavides RN [facility] Comment on above: Postlaminectomy synd gumaro, lumbar region Start: 04-02-2024 End: 04-02-2024 Telephone encounter Valentina Dietz RN [facility] Start: 03-31-2024 End: 03-31-2024 Telephone encounter Sara Spaulding CMA [facility] Start: 03-26-2024 End: 03-26-2024 ambulatory SLIME ROMANO [facility] Start: 03-25-2024 End: 03-25-2024 Documentation procedure Valentina Dietz RN [facility] Start: 03-17-2024 End: 03-17-2024 Emergency department patient visit Tegan Arita DO Work Phone: [facility] ED Comment on above: Nonspecific chest pa in (Primary Dx) Start: 02-25-2024 End: 02-25-2024 Office outpatient visit 25 minutes Joana Stratton MD Work Phone: [facility] Comment on above: Cervical radiculitis (Primary Dx); Postlaminectomy syndrome, lumbar region; Encounter for long-term opiate analgesic use; Cervicalgia Start: 02-25-2024 End: 02-25-2024 ambulatory [facility] Start: 01-31-2024 End: 02-02-2024 Subsequent hospital visit by physician Eliana Springer APRN - PACKAGING SALES REPRESENTATIVE Work Phone: [facility] Start: 01-21-2024 End: 01-21-2024 ambulatory [facility] Start: 01-21-2024 End: 01-21-2024 Office outpatient visit 25 minutes Joana Stratton MD Work Phone: [facility] Comment on above: Thoracic spondylosis without myelopathy (Primary Dx); Postlaminectomy syndrome, lumbar region; Encounter for long-term opiate analgesic use Start: 01-21-2024 End: 01-21-2024 [facility] Start: 01-15-2024 End: 01-15-2024 Evaluation and management of inpatient [facility] Start: 01-14-2024 End: 01-15-2024 Evaluation and management of inpatient [facility] Start: 12-24-2023 End: 12-24-2023 Office outpatient visit 25 minutes Joana Stratton MD Work Phone: [facility] Comment on above: Thoracic spondylosis without myelopathy (Primary Dx); Postlaminectomy syndrome, lumbar region; Encounter for long-term opiate analgesic use Start: 12-24-2023 End: 12-24-2023 ambulatory [facility] Start: 11-30-2023 End: 11-30-2023 Subsequent hospital visit by physician Eliana Springer APRN - PACKAGING SALES REPRESENTATIVE Work Phone: [facility] Comment on above: Other fatigue; Chronic pain syndrome; Anemia, unspecified type; Low vitamin D level Start: 11-27-2023 Documentation procedure Valentina neri RN [facility] Start: 11-26-2023 End: 11-27-2023 Evaluation and management of inpatient [facility] Start: 11-21-2023 End: 11-21-2023 Office outpatient visit 25 minutes Slime Romano ECONOMICS ANALYST-PACKAGING SALES REPRESENTATIVE Work Phone: [facility] Comment on above: Thoracic spondylosis without myelopathy (Primary Dx); Postlaminectomy syndrome, lumbar region; Lumbosacral spondylosis without myelopathy Start: 11-21-2023 End: 11-21-2023 ambulatory [facility] Start: 11-06-2023 Orders Only Genoveva cazares CMA [facility] Comment on above: Thoracic spondylosis without myelopathy (Primary Dx) Start: 10-24-2023 End: 10-24-2023 Office outpatient visit 25 minutes Slime Romano ECONOMICS ANALYST-PACKAGING SALES REPRESENTATIVE Work Phone: [facility] Comment on above: Thoracic spondylosis (Primary Dx); Postlaminectomy syndrome, lumbar region; Encounter for long-term opiate analgesic use Start: 10-24-2023 End: 10-24-2023 ambulatory [facility] Start: 10-08-2023 End: 10-09-2023 Evaluation and management of inpatient [facility] Start: 07-05-2023 End: 07-07-2023 Patient encounter status Uli Strong MD Work Phone: [facility] Work Phone: Start: 07-05-2023 End: 07-07-2023 Subsequent hospital visit by physician Uli Strong MD Work Phone: [facility] Comment on above: Preop cardiovascular exam; Primary hypertension; Mixed hyperlipidemia; Intermittent chest pain Start: 06-21-2023 End: 06-21-2023 Subsequent hospital visit by physician Eliana Gian ECONOMICS ANALYST - PACKAGING SALES REPRESENTATIVE Work Phone: [facility] Comment on above: Diarrhea, unspecifie d type Start: 09-27-2020 End: 09-27-2020 Patient encounter procedure [facility] Start: 08-23-2020 End: 08-23-2020 Patient encounter procedure [facility] Start: 07-05-2020 End: 07-05-2020 Patient encounter procedure [facility] Start: 05-24-2020 End: 05-24-2020 Patient encounter procedure [facility] Start: 04-26-2020 End: 04-27-2020 Patient encounter procedure [facility] Start: 01-26-2020 End: 01-26-2020 Patient encounter procedure [facility] Start: 12-15-2019 End: 12-15-2019 Patient encounter procedure [facility] Start: 12-09-2019 End: 12-09-2019 Patient encounter procedure [facility] Start: 12-02-2019 End: 12-02-2019 Patient encounter procedure [facility] Start: 11-27-2019 End: 11-27-2019 Patient encounter procedure [facility] Start: 11-17-2019 End: 11-17-2019 Patient encounter procedure [facility] Start: 11-17-2019 End: 11-17-2019 Patient encounter procedure [facility] Procedures Date Procedure Procedure Detail Performing Clinician Start: 07-31-2025 Urnls dip stick/tablet reagent auto microscopy Marilyn Zamarripa ECONOMICS ANALYST - PACKAGING SALES REPRESENTATIVE Work Phone: Start: 07-31-2025 Assay of gammaglobulin ige Unknown Provi gera Result Start: 07-31-2025 C-reactive protein Unknown Provider Result Start: 06-18-2025 Ct abdomen & pelvis w/contrast material Dmitry Tierney MD Work Phone: Start: 06-18-2025 Ecg routine ecg w/least 12 lds w/i&r Dmitry Tierney MD Work Phone: Start: 06-18-2025 Radiologic exam chest single view Dmitry Tierney MD Work Phone: Start: 06-18-2025 End: 06-18-2025 Comprehensive metabolic panel Dmitry Natanael Joyce deras MD Work Phone: Start: 06-18-2025 End: 06-18-2025 LACTATE, SEPSIS Dmitry Tierney MD Work Phone: Start: 06-18-2025 COVID-19, RAPID Dmitry Tierney MD Work Phone: Start: 06-18-2025 Iaadiadoo influenza Dmitry Tierney MD Work Phone: Start: 05-30-2025 Ecg routine ecg w/least 12 lds w/i&r Luis D [place] PA-C Work Phone: Start: 05-30-2025 Radiologic exam chest 2 views Luis Jhonathan [facility] PA-C Work Phone: Start: 05-30-2025 Drug tst [...] 05-27-2025 End: 05-27-2025 GLUCOSE, WHOLE BLOOD Irvin Shepard MD Work Phone: Start: 05-27-2025 GLUCOSE, WHOLE BLOOD Irvin Shepard MD Work Phone: Start: 05-27-2025 Blood count complete auto&auto difrntl wbc Rosenda L Chucho ECONOMICS ANALYST - PACKAGING SALES REPRESENTATIVE Work Phone: Start: 05-26-2025 GLUCOSE, WHOLE BLOOD Irvin Shepard MD Work Phone: Start: 05-26-2025 GLUCOSE, WHOLE BLOOD Irvin Shepard MD Work Phone: Start: 05-26-2025 Rhythm ecg 1-3 leads w/interpretation & report Unknown Provider Result Start: 05-26-2025 GLUCOSE, WHOLE BLOOD Irvin Shepard MD Work Phone: Start: 05-26-2025 Culture bacterial blood aerobic w/id isolates Irvin Shepard MD Work Phone: Start: 05-26-2025 Us abdominal real time w/image documentation Good Brenner APRN - PACKAGING SALES REPRESENTATIVE Work Phone: Start: 05-26-2025 CULTURE, BLOOD 1 Irvin Shepard MD Work Phone: Start: 05-26-2025 GLUCOSE, WHOLE BLOOD Irvin Shepard MD Work Phone: Start: 05-26-2025 Rhythm ecg 1-3 leads w/interpretation & report Unknown Provider Result Start: 05-26-2025 Blood count complete auto&auto difrntl wbc Rosenda L Chucho ECONOMICS ANALYST - PACKAGING SALES REPRESENTATIVE Work Phone: Start: 05-26-2025 Procalcitonin (pct) Rosenda L Chucho ECONOMICS ANALYST - PACKAGING SALES REPRESENTATIVE Work Phone: Start: 05-25-2025 Radiologic exam chest 2 views Luis Alberto Graves MD Work Phone: Start: 05-25-2025 Urnls dip stick/tablet rgnt auto w/o microscopy Jae Baldwin MD Work Phone: Start: 05-25-2025 Ct abdomen & pelvis w/o contrast material Jae Baldwin MD Work Phone: Start: 05-25-2025 End: 05-25-2025 Comprehensive metabolic panel Jae campos MD Work Phone: Start: 02-24-2025 Radex hand minimum 3 views Farida R Tin easton DO Work Phone: Start: 02-16-2025 Ct abdomen & pelvis w/contrast material Eliana Palomo Gian ECONOMICS ANALYST - [facility] Work Phone: Start: 02-16-2025 Basic metabolic panel calcium total Eliana Springer ECONOMICS ANALYST - [facility] Work Phone: Start: 01-23-2025 Esophagogastroduodenoscopy transoral diagnostic Ligia Kerns RN Work Phone: Start: 01-05-2025 Esophagoscp rig transoral hypopharynx crv esoph R Alessandro Jacobson MD Work Phone: Start: 12-24-2024 Radiologic exam chest 2 views Eliana Palomo Gian ECONOMICS ANALYST - [facility] Work Phone: Start: 12-05-2024 Ct thorax w/contrast [...] 08-22-2024 Radiologic exam chest 2 views R Alessandro Jacobson MD Work Phone: Start: 08-22-2024 Antibody screen ELIANA SPRINGER Comment on above: Order Comment: Specimen Type: BLOOD SPEC IMENOrdering Facility: [facility] Address: [address] [place] [address] Performed By: #### T [id number] ####CC MAIN BLOOD BANKCLIA [id number] [place] [id number] ALEXANDREA Start: 08-11-2024 Ct thorax w/o contrast material M Michael wheeler Zeferino ECONOMICS ANALYST - PACKAGING SALES REPRESENTATIVE Work Phone: Start: 08-08-2024 Radex ribs uni w/posteroant ch minimum 3 views Tegan Earlene Arita DO Work Phone: Start: 08-05-2024 Comprehensive metabolic panel Joycelyn Ross dd, MD Work Phone: Start: 07-28-2024 End: 07-28-2024 Gluc bld gluc mntr dev cleared fda spec home use Kajal Stewart MD Work Phone: Start: 07-28-2024 Esophagoscp rig transoral hypopharynx crv esoph Ligia Kerns RN Work Phone: Start: 07-14-2024 Assay of thyroid stimulating hormone tsh Eliana Springer ECONOMICS ANALYST General Compression Work Phone: Start: 05-24-2024 Adult depression screening assessment Ibeth HANLEY Work Phone: Start: 04-26-2024 End: 04-26-2024 Radex spine thoracic 2 views Max matta MD Work Phone: Start: 04-23-2024 Creatinine blood Tommy Guerra DO Work Phone: Start: 03-17-2024 Radiologic exam chest single view Ivania Henao Arita DO Work Phone: Start: 03-17-2024 Ecg routine ecg w/least 12 lds w/i&r Tegan J Arita DO Work Phone: Start: 03-17-2024 End: 03-17-2024 Basic metabolic panel calcium total Tegan J Arita DO Work Phone: Start: 11-30-2023 Urinalysis microscopic only Eliana Garcia ECONOMICS ANALYST - PACKAGING SALES REPRESENTATIVE Work Phone: Start: 11-30-2023 Urnls dip stick/tablet rgnt auto w/o microscopy Eliana Springer ECONOMICS ANALYST - PACKAGING SALES REPRESENTATIVE Work Phone: Start: 11-30-2023 Assay of iron Eliana Stacia Springer ECONOMICS ANALYST - PACKAGING SALES REPRESENTATIVE Work Phone: Start: 10-02-2023 Colonoscopy Eliana Springer APRN - PACKAGING SALES REPRESENTATIVE Work Phone: Start: 07-06-2023 Myocardial spect multiple studies Uli Strong MD Work Phone: Start: 12-15-2019 Infectious agent dna/rna influenza 1st 2 types LILLIAN REID Start: 12-09-2019 Radiologic exam chest 2 views LILLIANBASILIA GOODMAN MARIN Start: 11-17-2019 Radex hip unilateral with pelvis 2-3 views LILLIAN REID Start: 11-17-2019 Radiologic exam knee complete 4/more views LILLIAN REID Start: 11-17-2019 Hgb glycosylated device cleared fda home use LILLIAN REID Start: 03-01-2018 Lipid 1996 panel - Serum or Plasma Jorge Bardales MD Work Phone: Start: 07-03-2012 Colonoscopy Eliana Springer APRN - PACKAGING SALES REPRESENTATIVE Work Phone: Plan of Treatment Date Care Activity Detail Author Start: 2034 Pneumococcal 0-64 years Vaccine (3 - PPSV23 if available, else PCV20) Pneumococcal 0-64 years Vaccine (3 - PPSV23 if available, else PCV20) [facility] Start: 2034 Pneumococcal 0-64 years Vaccine (3 - PPSV23 or PCV20) Pneumococcal 0-64 years Vaccine (3 - PPSV23 or PCV20) [facility] Start: 2034 Pneumococcal 0-64 years Vaccine (3 of 3 - PPSV23 or PCV20) Pneumococcal 0-64 years Vaccine (3 of 3 - PPSV23 or PCV20) [facility] Start: 2034 Pneumococcal vaccination Pneumococcal Vaccine (3 of 3 - PPSV23 or PCV20) [facility] Start: 08-22-2034 DTaP/Tdap/Td vaccine (3 - Td or Tdap) DTaP/Tdap/Td vaccine (3 - Td or Tdap) [facility] Start: 08-22-2034 Urine microalbumin profile DTaP,Tdap,Td Vaccine (3 - Td or Tdap) [facility] Start: 10-02-2033 Screening for malignant neoplasm of colon [facility] Start: 06-18-2027 Diabetes Screening Diabetes Screening [facility] Start: 10-02-2026 Screening for malignant neoplasm of colon [employer] Start: 08-06-2026 End: 08-06-2026 Patient encounter procedure 08/06/2026 8:20 AM EDT Office Visit [facility] [address] [place] [id number] Ana Laura Taveras, PA [address] [place] [address] [facility] Start: 07-23-2026 GFR test (Diabetes, CKD 3-4, OR last GFR 15-59) GFR test (Diabetes, CKD 3-4, OR last GFR 15-59) [employer] Start: 06-18-2026 GFR test (Diabetes, CKD 3-4, OR last GFR 15-59) GFR test (Diabetes, CKD 3-4, OR last GFR 15-59) [employer] Start: 06-02-2026 Lipid panel Lipids [employer] Start: 05-31-2026 Depression Monitoring Depression Monitoring [employer] Start: 05-30-2026 GFR test (Diabetes, CKD 3-4, OR last GFR 15-59) GFR test (Diabetes, CKD 3-4, OR last GFR 15-59) [employer] Start: 05-30-2026 Screening for malignant neoplasm of colon [employer] Start: 05-27-2026 GFR test (Diabetes, CKD 3-4, OR last GFR 15-59) GFR test (Diabetes, CKD 3-4, OR last GFR 15-59) [employer] Start: 02-26-2026 Depression Monitoring Depression Monitoring [employer] Start: 02-16-2026 GFR test (Diabetes, CKD 3-4, OR last GFR 15-59) GFR test (Diabetes, CKD 3-4, OR last GFR 15-59) [employer] Start: 01-30-2026 Depression Monitoring Depression Monitoring [employer] Start: 12-24-2025 Depression Monitoring Depression Monitoring [facility] Start: 12-15-2025 Depression Monitoring Depression Monitoring [facility] Start: 12-05-2025 GFR test (Diabetes, CKD 3-4, OR last GFR 15-59) GFR test (Diabetes, CKD 3-4, OR last GFR 15-59) [facility] Start: 08-25-2025 End: 08-25-2025 Admission to same day surgery center 08/25/2025 9:45 AM EST - 08/25/2025 11:[address] [facility] [address] [place] [id number] Parvez Chatterjee MD [address] [place] [address], [address] [place] [address] CYSTOSCOPY TRANSURETHRAL RESECTION PROSTATE LASER-photovaporization of prostate with greenlight laser [facility] Comment on above: CYSTOSCOPY TRANSURETHRAL RESECTION PROST ATE LASER-photovaporization of prostate with greenlight laser Start: 08-25-2025 End: 08-25-2025 Laser vaporization of prostate for urine flow CYSTOSCOPY TRANSURETHRAL RESECTION PROSTATE LASER BPH with obstruction/lower urinary tract symptoms 08/25/2025 9:45 AM EST [facility] Start: 08-25-2025 Subsequent hospital visit by physician 08/25/2025 9:45 AM EST Hospital Encounter [address] [id number] Parvez Chatterjee MD [address] [place] [address], [address] [place] [address] [facility] Start: 08-22-2025 BP Controlled (<130/80) BP Controlled (<130/80) [facility] Start: 08-22-2025 zzBP Controlled (<130/80) (Retired) zzBP Controlled (<130/80) (Retired) [facility] Start: 08-20-2025 End: 08-20-2025 Patient encounter procedure 08/20/2025 11:00 AM EDT Office Visit [facility] Part of [address] [place] [address] Parvez Chatterjee MD [address] [place] [address], [address] [place], [place] [id number] one year PSA [facility] Comment on above: one year PSA Start: 08-05-2025 GFR test (Diabetes, CKD 3-4, OR last GFR 15-59) GFR test (Diabetes, CKD 3-4, OR last GFR 15-59) [facility] Start: 07-24-2025 Depression Monitoring Depression Monitoring [facility] Start: 07-24-2025 Hepatitis B vaccine (1 of 3 - 19+ 3-dose series) Hepatitis B vaccine (1 of 3 - 19+ 3-dose series) [facility] Comment on above: Postponed from 1988 (Patient Refus ed) Start: 07-07-2025 End: 07-07-2025 ambulatory 07/07/2025 7:40 AM EDT [facility] Endocrinology [address] [place] [address] Kathy Bravo MD [address] [place] [address] Jul 07 virtual Endocrinology Comment on above: Jul 07 virtual Start: 06-25-2025 End: 06-25-2025 Patient encounter procedure 06/25/2025 3:00 PM EDT Office Visit [facility] [place] [id number] Parvez Chatterjee MD [address] [place] [address], [address] [place] [address] 6w symptom check [facility] Comment on above: 6w symptom check Start: 06-22-2025 COVID-19 Vaccine ( season) COVID-19 Vaccine ( season) [facility] Start: 06-22-2025 Influenza vaccination [facility] Start: 06-19-2025 Annual Wellness Visit (Medicare) Annual Wellness Visit (Medicare) [facility] Start: 06-18-2025 Depression Monitoring Depression Monitoring [facility] Start: 06-18-2025 Hemoglobin A1c measurement A1C test (Diabetic or Prediabetic) [email or web address] Start: 06-03-2025 End: 05-27-2026 CBC W Auto Differential panel - Blood CBC with Auto Differential Lab Routine Acute pneumonia Expected: 06/03/2025, Expires: 05/27/2026 [facility] Comment on above: Expected: 06/03/2025, Expires: Start: 06-03-2025 End: 05-27-2026 Comprehensive metabolic 2000 panel - Serum or Plasma Comprehensive Metabolic Panel Lab Routine Acute pneumonia Expected: 06/03/2025, Expires: 05/27/2026 [facility] Comment on above: Expected: 06/03/2025, Expires: Start: 06-02-2025 End: 06-02-2025 Patient encounter procedure 06/02/2025 3:20 PM EDT Office Visit [facility] [address] [place] [address] Eliana Springer, ECONOMICS ANALYST - PACKAGING SALES REPRESENTATIVE [address] [place] [address] [facility] Start: 05-24-2025 Adult [facility] Screening [facility] Start: 05-24-2025 Depression [facility]ening [facility] Start: 05-24-2025 Tobacco Screening [facility] Start: 05-22-2025 Influenza vaccination [facility] Start: 04-23-2025 GFR test (Diabetes, CKD 3-4, OR last GFR 15-59) GFR test (Diabetes, CKD 3-4, OR last GFR 15-59) [facility] [employer] Start: 04-13-2025 Glaucoma screening Diabetic retinal exam [facility] [employer] Comment on above: Postponed from 1987 (Not Indicated ) Start: 04-10-2025 End: 04-10-2025 ambulatory 04/10/2025 3:40 PM EDT [facility] Endocrin[facility] [address] [place] [phone] Kathy Bravo MD [address] [place] [address] April 10 virtual on [employer] template, thanks! Endocrinology Comment on above: April 10 virtual on [facility] template, marina terry! Start: 04-03-2025 Depression Monitoring Depression Monitoring [employer] Start: 04-03-2025 Diabetic foot examination Diabetic foot exam [employer] Comment on above: Postponed from 1979 (Not Indicated ) Start: 04-03-2025 DTaP/Tdap/Td vaccine (2 - Td or Tdap) DTaP/Tdap/Td vaccine (2 - Td or Tdap) [employer] Comment on above: Postponed from 12/07/2023 (Patient Refus ed) Start: 04-03-2025 Urine screening for protein Diabetic Alb to Cr ratio (uACR) test [employer] Comment on above: Postponed from 1987 (Not Indicated ) Start: 03-17-2025 GFR test (Diabetes, CKD 3-4, OR last GFR 15-59) GFR test (Diabetes, CKD 3-4, OR last GFR 15-59) [employer] Start: 02-24-2025 Adult BMI Screening Adult BMI Screening [facility] Start: 02-24-2025 Tobacco Screening Tobacco Screening [facility] Start: 02-20-2025 End: 02-20-2025 Patient encounter procedure 02/20/2025 10:20 AM EDT Office Visit Endocrinology [address] [phone] Kathy Bravo MD [address] [place] [address] f/u Endocrinology Comment on above: f/u Start: 02-12-2025 Depression Monitoring Depression Monitoring [employer] Start: 02-07-2025 Lipid panel Lipids [employer] Start: 01-23-2025 End: 01-23-2025 Patient encounter procedure 01/23/2025 4:00 PM EDT Appointment Gastroenterology [address] [address] Dariusz Pratt MD [address] [place], [place] [id number] IPMN (intraductal papillary mucinous neoplasm) [D49.0] Gastroenterology [...] tem Start: 01-10-2025 Depression Monitoring Depression Monitoring [facility] Start: 01-05-2025 End: 01-05-2025 Patient encounter procedure Gastroenterology Start: 12-24-2024 End: 12-24-2024 ambulatory 12/24/2024 10:00 AM EST [facility] [address] [phone] Kathy Bravo MD [address] [place], [place] [id number] f/u, SWITCHED TO VIRTUAL OK'D BY DR. BRAVO Endocrinology Comment on above: f/u, SWITCHED TO VIRTUAL OK'D BY DR. DAWSON U Start: 12-23-2024 Adult BMI Screening Adult BMI Screening [facility] Start: 12-23-2024 Tobacco Screening Tobacco Screening [facility] Start: 12-22-2024 End: 12-22-2024 Patient encounter procedure [facility] Comment on above: 6 month check awv and 6 month chec k-need album urine ordered Start: 12-19-2024 Hemoglobin A1c measurement HbA1C [facility] Start: 12-19-2024 End: 12-19-2024 Patient encounter procedure 12/19/2024 10:00 AM EST Office Visit Endocrinology [address] [phone] Kathy Bravo MD [address] [place] [address] f/u Endocrinology Comment on above: f/u Start: 2024 Prostate specific antigen measurement Prostate Cancer Screening Discussion [facility] Start: 11-26-2024 Adult BMI Screening Adult BMI Screening [facility] Start: 11-26-2024 Tobacco Screening Tobacco Screening [facility] Start: 11-13-2024 Depression Monitoring Depression Monitoring [facility] [address] Start: 10-31-2024 End: 10-31-2024 Follow-up encounter 10/31/2024 4:20 PM EST [facility] Endocrinology [address] [place] [address] Kathy Bravo MD [address] [place] [address] Bravo Endocrinology Comment on above: follow up per Dr. Bravo Start: 10-24-2024 Adult BMI Screening Adult BMI Screening [facility] Start: 10-24-2024 Tobacco Screening Tobacco Screening [facility] Start: 10-22-2024 Annual Wellness Visit (Medicare Advantage) Annual Wellness Visit (Medicare Advantage) [facility] Start: 10-22-2024 Medicare Advantage Annual Wellness Visit Medicare Advantage Annual Wellness Visit [facility] Start: 10-17-2024 Meningococcal (ACWY) vaccine (2 - Risk 2-dose series) Meningococcal (ACWY) vaccine (2 - Risk 2-dose series) [facility] Start: 10-17-2024 Meningococcal Conjugate Vaccine (2 - Risk 2-dose series) Meningococcal Conjugate Vaccine (2 - Risk 2-dose series) [facility] Start: 10-07-2024 GFR test (Diabetes, CKD 3-4, OR last GFR 15-59) GFR test (Diabetes, CKD 3-4, OR last GFR 15-59) [employer] Start: 10-07-2024 End: 10-07-2024 Nursing evaluation of patient and report 10/07/2024 12:30 PM EST Nurse Visit [facility] [address] [place] [address] Dario Hines, S[facility] [address] [place] [address] [employer] [facility] Comment on above: [employer] Start: 10-02-2024 End: 10-02-2024 ambulatory 10/02/2024 12:30 PM EST [facility] Diabetic Education [facility] [address] [place] [address] [place] [address] [place] [address] Pre-pump Diabetic Education [facility] Comment on above: Pre-pump Start: 09-30-2024 End: 09-30-2024 Patient encounter procedure 09/30/2024 10:45 AM EST Office Visit General Surgery [address] [id number] [place] [address] [phone] postop General Surgery Comment on above: postop Start: 09-19-2024 Meningococcal B Vaccine (2 of 5 - Increased Risk Bexsero 3-dose series) Meningococcal B Vaccine (2 of 5 - Increased Risk Bexsero 3-dose series) [facility] Start: 09-19-2024 Meningococcal B Vaccine: Consider Based On Risk (2 of 4 - Increased Risk Bexsero 2-dose series) Meningococcal B Vaccine: Consider Based On Risk (2 of 4 - Increased Risk Bexsero 2-dose series) [facility] Start: 08-28-2024 End: 08-28-2024 Admission to same day surgery center 08/28/2024 12:15 PM EST - 08/28/2024 5:45 PM EST Surgery Admitting [address] [place] [address] [place] [address] [phone] EXPLORATORY LAPAROTOMY Admitting Comment on above: EXPLORATORY LAPAROTOMY Start: 08-28-2024 End: 08-28-2024 Anesthesia consultation 08/28/2024 12:15 PM EST Anesthesia Event Admitting [address] [place] [address] Harjinder Craig, Research Coordinator Admitting Start: 08-28-2024 End: 08-28-2024 Exploratory laparotomy celiotomy w/wo biopsy spx [facility] Start: 08-28-2024 Subsequent hospital visit by physician 08/28/2024 12:15 PM EST Hospital Encounter Admitting [address] [place] [address] [place] [address] [phone] IPMN (intraductal papillary mucinous neoplasm) [D49.0] Admitting Comment on above: IPMN (intraductal papillary mucinous emmanuel plasm) [D49.0] Start: 08-22-2024 End: 08-22-2024 Nursing evaluation of patient and report 08/22/2024 1:30 PM EDT Nurse Visit General Surgery [address] [phone] Ligia Kerns, RN [address] [place], [place] [phone] Pt Education General Surgery Comment on above: Pt Education Start: 08-22-2024 End: 08-22-2024 ambulatory 08/22/2024 12:30 PM EDT Results Only Cardiology [address] [phone] Pre Op Cardiology Comment on above: Pre Op Start: 08-22-2024 End: 08-22-2024 Patient encounter procedure Main [facility] Comment on above: Pre Op Start: 08-22-2024 End: 08-22-2024 Anesthesia consultation 08/22/2024 11:20 AM EDT PAT Pre Anesthesia [address] [place] [id number], Pacc Main [address] [place] [address] PRE OP Pre Anesthesia Comment on above: PRE OP Start: 08-20-2024 End: 08-20-2024 Patient encounter procedure 08/20/2024 11:00 AM EDT Office Visit [facility] [address] [place] [address] Parvez Chatterjee MD [address] [facility], [address] [place] [address] 4-6 week Follow up-PSA reminder 07/09 aw [facility] Comment on above: 4-6 week Follow up-PSA reminder 07/09 aw Start: 08-14-2024 End: 11-13-2024 CBC W Auto Differential panel - Blood COMPLETE BLOOD COUNT AND DIFFERENTIAL Lab Routine IPMN (intraductal papillary mucinous neoplasm) Preoperative examination Expected: 08/14/2024 (Approximate), Expires: 11/13/2024 [facility] Comment on above: Expected: 08/14/2024 (Approximate), Expi res: 11/13/2024 Start: 08-14-2024 End: 11-13-2024 Comprehensive metabolic 2000 panel - Serum or Plasma COMPREHENSIVE METABOLIC PANEL Lab Routine IPMN (intraductal papillary mucinous neoplasm) Preoperative examination Expected: 08/14/2024 (Approximate), Expires: 11/13/2024 [facility] Comment on above: Expected: 08/14/2024 (Approximate), Expi res: 11/13/2024 Start: 08-14-2024 End: 11-13-2024 CONFIRM BLOOD TYPE CONFIRM BLOOD TYPE Blood Bank Routine IPMN (intraductal papillary mucinous neoplasm) Preoperative examination Expected: 08/14/2024, Expires: 11/13/2024 [facility] Comment on above: Expected: 08/14/2024, Expires: Start: 08-14-2024 End: 11-13-2024 TYPE AND SCREEN,30 DAY TYPE AND SCREEN,30 DAY Blood Bank Routine IPMN (intraductal papillary mucinous neoplasm) Preoperative examination Expected: 08/14/2024, Expires: 11/13/2024 [facility] Comment on above: Expected: 08/14/2024, Expires: Start: 08-09-2024 Hemoglobin A1c measurement A1C test (Diabetic or Prediabetic) [facility] Start: 08-09-2024 Lipid panel Lipids [facility] Start: 08-04-2024 End: 08-04-2024 Patient encounter procedure 08/04/2024 8:[address] [facility] [address] [place] [address] [facility] Comment on above: Diagnostic Start: 07-28-2024 End: 07-28-2024 Patient encounter procedure 07/28/2024 7:30 AM EDT Appointment Gastroenterology [address] [address] Sheyla Mensah MD [address] [address] Type: Gastroenterology Comment on above: Type: Start: 07-22-2024 End: 07-22-2024 Patient encounter procedure 07/22/2024 3:00 PM EDT Office Visit General Surgery [address] [phone] [place] [address] [address] [phone] panc cyst General Surgery Comment on above: panc cyst Start: 07-22-2024 End: 10-21-2024 Cancer Ag 19-9 [Units/volume] in Serum or Plasma [facility] Work Phone: Comment on above: Expected: 07/22/2024, Expires: Start: 07-17-2024 End: 07-17-2024 Patient encounter procedure 07/17/2024 1:00 PM EDT Office Visit [facility] [address] [facility] [address] [place] [phone] Parvez Chatterjee MD [address] [facility], [address] [place] [address] 4-6 week Follow up-PSA reminder 07/09 aw [facility] Comment on above: 4-6 week Follow up-PSA reminder 07/09 aw Start: 07-12-2024 Hepatitis B vaccine (1 of 3 - 3-dose series) Hepatitis B vaccine (1 of 3 - 3-dose series) [facility] Comment on above: Postponed from 1969 (Patient Refus ed) Start: 06-22-2024 Covid-19 Vaccine ( season) Covid-19 Vaccine ( season) [facility] Start: 06-22-2024 Influenza vaccination [facility] Start: 06-21-2024 Depression Monitoring Depression Monitoring [facility] Start: 05-22-2024 Influenza vaccination Flu vaccine (#1) [facility] Start: 05-22-2024 End: 05-22-2024 Patient encounter procedure 05/22/2024 12:30 PM EDT Office Visit [facility] [address] [place] [address] Lillian Reid MD [address] [place] [address] re-est care [facility] Comment on above: re-est care Start: 05-13-2024 End: 05-13-2024 Patient encounter procedure 05/13/2024 2:20 PM EDT Office Visit [facility] [address] [place] [phone] Eliana Springer, ECONOMICS ANALYST - PACKAGING SALES REPRESENTATIVE [address] [place] [address] 6 months and awv [facility] Comment on above: 6 months and awv Start: 04-09-2024 End: 04-09-2024 Patient encounter procedure [facility] Start: 03-19-2024 End: 03-19-2024 Patient encounter procedure 03/19/2024 2:45 PM EDT Office Visit [facility] [address] [place] [phone] Slime Romano, ECONOMICS ANALYST-PACKAGING SALES REPRESENTATIVE [address] [place] [phone] [facility] Start: 02-25-2024 End: 02-24-2025 XR Cervical spine Views X-ray spine cervical 3 views or less Imaging Routine Cervical radiculitis Expected: 02/25/2024, Expires: 02/24/2025 [facility] Work Phone: Comment on above: Expected: 02/25/2024, Expires: Start: 02-25-2024 End: 02-25-2024 Patient encounter procedure 02/25/2024 12:30 PM EDT Office Visit [facility] [address] [place] [phone] Joana Stratton MD [address] [place] [address] [facility] Start: 01-21-2024 End: 01-21-2024 Patient encounter procedure 01/21/2024 12:50 PM EDT Office Visit [facility] [address] [place] [phone] Joana Stratton MD [address] [place] [address] [facility] Start: 12-24-2023 End: 12-24-2023 Patient encounter procedure 12/24/2023 1:00 PM EST Office Visit [facility] [address] [place] [phone] Joana Stratton MD [address] [place] [phone] [facility] Start: 12-07-2023 DTaP,Tdap and Td Vaccines (2 - Td or Tdap) DTaP,Tdap and Td Vaccines (2 - Td or Tdap) [facility] Start: 12-07-2023 DTaP/Tdap/Td vaccine (2 - Td or Tdap) DTaP/Tdap/Td vaccine (2 - Td or Tdap) [facility] Start: 12-07-2023 Urine microalbumin profile DTaP,Tdap,Td Vaccine (2 - Td or Tdap) [facility] Start: 11-26-2023 End: 11-26-2023 Admission to same day surgery center 11/26/2023 11:00 AM EST - 11/26/2023 11:10 AM [facility] Surgery [address] [address] Joana Strattno MD [address] [place] [phone] #2 Bilateral Thoracic Medial Branch Block T7-8 and T8-9 [28725 (CPT )] [facility] Comment on above: #2 Bilateral Thoracic Medial Branch Bloc k T7-8 and T8-9 [68085 (CPT )] Start: 11-26-2023 End: 11-26-2023 Njx dx/ther agt pvrt facet jt crv/thrc 1 level INJECTION BLOCK NERVE MEDIAL BRANCH Thoracic spondylosis without myelopathy 11/26/2023 11:00 AM EST [facility] Start: 11-26-2023 End: 11-26-2023 Patient encounter procedure 11/26/2023 11:00 AM EST Procedure visit [facility] [address] [place] [phone] [facility] Start: 11-26-2023 Subsequent hospital visit by physician 11/26/2023 11:00 AM EST Hospital Encounter [address] [phone] Joana Stratton MD [address] [place] [phone] [facility] Start: 11-21-2023 End: 11-21-2023 Patient encounter procedure 11/21/2023 2:30 PM EST Office Visit [facility] [address] [facility] [address] [place] [address] Slime Romano, ECONOMICS ANALYST-PACKAGING SALES REPRESENTATIVE [address] [facility] [address] [place] [address] [facility] Start: 10-22-2023 Annual Wellness Visit (Medicare Advantage) Annual Wellness Visit (Medicare Advantage) [facility] Start: 07-12-2023 End: 07-12-2023 Patient encounter procedure [facility] Comment on above: 1 month f/u establish care Start: 07-09-2023 End: 07-09-2023 Patient encounter procedure 07/09/2023 2:40 PM EDT Office Visit [facility] [address] [phone] Eliana Springer, ECONOMICS ANALYST - PACKAGING SALES REPRESENTATIVE [address] [place], [place] [phone] right ear impacted painful and muffled [facility] Comment on above: right ear impacted painful and muffled Start: 06-29-2023 End: 06-29-2023 Patient encounter procedure 06/29/2023 Office Visit Cardiology Uli Strong MD [address] [phone] [facility] Part [facility] Start: 06-26-2023 End: 06-26-2023 Patient encounter procedure 06/26/2023 Office Visit Gastroenterology She Hopson, ECONOMICS ANALYST - PACKAGING SALES REPRESENTATIVE [address] [phone] [facility] GI Part [facility] Start: 05-22-2023 Influenza vaccination Flu vaccine (#1) [facility] Start: 03-01-2023 Lipid panel Lipid Screening [facility] Start: 07-03-2022 Screening for malignant neoplasm of colon Colonoscopy [facility] Start: 09-01-2021 COVID-19 Vaccine (4 - Booster for Moderna series) COVID-19 Vaccine (4 - Booster for Moderna series) [facility] Start: 09-01-2021 COVID-19 Vaccine (4 - Moderna series) COVID-19 Vaccine (4 - Moderna series) [email or web address] Start: 08-09-2021 Lipid panel Lipids [email or web address] Start: 05-24-2021 Hemoglobin A1c measurement A1C test (Diabetic or Prediabetic) [facility] Start: 03-01-2019 Hepatitis B surface antibody level LDL Cholesterol [facility] Start: 2014 Prostate specific antigen measurement Prostate Cancer Screening Discussion [facility] Start: 2014 Screening for malignant neoplasm of colon [facility] Start: 1988 Hepatitis B vaccine (1 of 3 - 19+ 3-dose series) Hepatitis B vaccine (1 of 3 - 19+ 3-dose series) [email or web address] Start: 1987 Adult BMI Follow Up Plan Adult BMI Follow Up Plan [facility] [id number] [facility] Start: 1987 Annual PCP Team Chronic Disease Visit Annual PCP Team Chronic Disease Visit [facility] Start: 1987 Anxiety Screening Anxiety Screening [facility] Start: 1987 Depression Screening Depression Screening [facility] Start: 1987 Diabetic foot examination [id number] Start: 1987 Glaucoma screening Diabetic retinal exam [email or web address] Start: 1987 Hepatitis C screening Hepatitis C Screening [facility] Start: 1987 HIV screening HIV Screening [facility] Start: 1987 Spirometry Spirometry [facility] Start: 1987 Urine screening for protein Diabetic Alb to Cr ratio (uACR) test [facility] Start: 1981 Depression Screening Depression Screening [id number] Start: 1979 Diabetic foot examination Diabetic foot exam [facility] [employer] Start: 1979 Glaucoma screening Dilated Retinal Exam [facility] Start: 1979 Hepatitis B screening Urine Albumin:Creatinine Ratio [facility] Start: 1969 Glaucoma screening Diabetic Ophthalmology Exam [facility] Start: 1969 Hepatitis B vaccine (1 of 3 - 3-dose series) Hepatitis B vaccine (1 of 3 - 3-dose series) [facility] Start: 1969 Screening for malignant neoplasm of colon [facility] Acapella Acapella Respira tory Care Routine 4X Daily until discontinued starting 05/26/2025 [facility] Comment on above: 4X Daily until discontinued starting 02/2025 End: 01-20-2025 Benzodiazepine, urine, qualitative Benzodiazepine, urine, qualitative Lab Routine Postlaminectomy syndrome, lumbar region Encounter for long-term opiate analgesic use 1 Occurrences starting 01/21/2024 until 01/20/2025 [employer] Work Phone: Comment on above: 1 Occurrences starting 01/21/2024 until 01/20/2025 Benzodiazepines [Presence] in Urine Benzodiazepine, urine, qualitative Lab Routine Postlaminectomy syndrome, lumbar region Encounter for long-term opiate analgesic use 01/21/2024 6:17 PM EDT [facility] End: 06-18-2025 Blood Culture 1 [employer] [facility] Comment on above: One Time for 1 Occurrences starting 05/23 until 06/18/2025 End: 05-30-2025 CBC W Auto Differential panel - Blood CBC auto differential Lab Routine Daily for 5 Days starting 05/26/2025 until 05/30/2025, 2 completed [facility] Comment on above: Daily for 5 Days starting 05/26/2025 unt il 05/30/2025, 2 completed End: 05-30-2025 Comprehensive Metabolic Panel w/ Reflex to MG Comprehensive Metabolic Panel w/ Reflex to MG Lab Routine Daily for 5 Days starting 05/26/2025 until 05/30/2025, 2 completed [facility] [facility] Comment on above: Daily for 5 Days starting 05/26/2025 unt il 05/30/2025, 2 completed End: 04-23-2024 CT Cervical spine W contrast IV [employer] Work Phone: Comment on above: 1 Occurrences starting 04/23/2024 until 04/23/2024 CT Chest WO contrast CT CHEST WO CONTRAST Imaging STAT 08/11/2024 1:05 PM EDT [facility] Culture, Blood 1 Culture, Blood 1 Microbiology STAT 05/26/2025 7:35 AM EDT [facility] Culture, Blood 2 Culture, Blood 2 Microbiology STAT 05/26/2025 7:52 AM EDT [facility] End: 06-18-2025 Culture, Blood 2 [facility] Comment on above: One Time for 1 Occurrences starting 05/23 until 06/18/2025 End: 11-27-2024 Culture, Urine [facility] Comment on above: 1 Occurrences starting 11/27/2024 until 11/27/2024 End: 12-16-2024 Culture, Urine [facility] Comment on above: 1 Occurrences starting 12/16/2024 until 12/16/2024 End: 05-13-2025 Culture, Urine [facility] Comment on above: 1 Occurrences starting 05/13/2025 until 05/13/2025 Culture, Urine Culture, Urine Microbiology Routine Dysuria 07/31/2025 2:44 PM EDT [facility] End: 08-14-2025 ECG COMPLETE ECG COMPLETE ECG Routine IPMN (intraductal papillary mucinous neoplasm) Preoperative examination 1 Occurrences starting 08/14/2024 until 08/14/2025 [facility] Comment on above: 1 Occurrences starting 08/14/2024 until 08/14/2025 End: 07-22-2025 EGD - THERAPEUTIC, EUS, OR TUBE INTERVENTIONS EGD - THERAPEUTIC, EUS, OR TUBE INTERVENTIONS Endoscopy Routine Cyst and pseudocyst of pancreas 1 Occurrences starting 07/22/2024 until 07/22/2025 [facility] Comment on above: 1 Occurrences starting 07/22/2024 until 07/22/2025 End: 12-23-2025 EGD DIAGNOSTIC EGD DIAGNOSTIC Endoscopy Routine IPMN (intraductal papillary mucinous neoplasm) 1 Occurrences starting 12/23/2024 until 12/23/2025 [facility] Work Phone: Comment on above: 1 Occurrences starting 12/23/2024 until 12/23/2025 End: 01-07-2026 EGD DIAGNOSTIC EGD DIAGNOSTIC Endoscopy Routine IPMN (intraductal papillary mucinous neoplasm) 1 Occurrences starting 01/07/2025 until 01/07/2026 [facility] Work Phone: Comment on above: 1 Occurrences starting 01/07/2025 until 01/07/2026 EKG 12 Lead EKG 12 Lead ECG STAT 03/17/2024 2:02 PM EDT [employer] EKG 12 Lead EKG 12 Lead ECG STAT 06/18/2025 4:28 PM EDT [facility] End: 06-21-2023 Gastrointestinal Panel, Molecular [employer] Comment on above: 1 Occurrences starting 06/21/2023 until 06/21/2023 End: 12-16-2024 Gastrointestinal Panel, Molecular [employer] [facility] Comment on above: 1 Occurrences starting 12/16/2024 until 12/16/2024 Glucose [Mass/volume ] in Serum or Plasma POCT glucose Point of Care Testing Routine 4X Daily (AC & HS) until discontinued starting 05/26/2025 [facility] [facility] Comment on above: 4X Daily (AC & HS) until discontinued st arting 05/26/2025 Glucose [Mass/volume ] in Serum or Plasma [facility] Comment on above: 4X Daily (AC & HS) until discontinued st arting 05/26/2025 As Needed until disc ontinued starting 05/26/2025 INJECTION BLOCK NERV E MEDIAL BRANCH INJECTION BLOCK NERVE MEDIAL BRANCH Thoracic spondylosis [facility] End: 07-14-2024 Iron and TIBC [employer] Comment on above: 1 Occurrences starting 07/14/2024 until 07/14/2024 Lupus Anticoagulant Lupus Antico agulant Lab Routine Other fatigue Chronic pain syndrome 11/30/2023 9:42 AM EST [employer] Oxygen therapy [[facility] [place] [place] Initiate Oxygen Therapy Protocol Respiratory Care Routine As Needed until discontinued starting 05/26/2025 [employer] [facility] Comment on above: As Needed until discontinued starting PANC ELASTASE, FECAL PANC ELASTA SE, FECAL Lab Routine Cyst and pseudocyst of pancreas 07/22/2024 4:18 PM EDT [facility] Positive Expiratory Pressure Therapy Positive Expiratory Pressure Therapy Respiratory Care Routine 0800, 1200, 1600, 2000 (respiratory use only) until discontinued starting 05/26/2025 [employer] Comment on above: 0800, 1200, 1600, 2000 (respiratory use only) until discontinued starting 05/26/2025 End: 07-14-2024 PSA screening [employer] Work Phone: Comment on above: 1 Occurrences starting 07/14/2024 until 07/14/2024 RADIOFREQUENCY ABLAT ION SPINAL RADIOFREQUENCY ABLATION SPINAL Postlaminectomy syndrome, lumbar region Encounter for long-term opiate analgesic use [facility]acic [facility]ylosis [facility] FOR [facility] INTERVIEW REFER FOR ADMIT INTERVIEW Procedures Routine IPMN (intraductal papillary mucinous neoplasm) Preoperative examination Ordered: 08/14/2024 [facility] Work Phone: Comment on above: Ordered: 08/14/2024 End: 06-18-2025 Respiratory Panel, Molecular, with COVID-19 (Restricted: peds pts or suitable admitted adults) [employer] [facility] Comment on above: One Time for 1 Occurrences starting 05/23 until 06/18/2025 End: 07-31-2025 S. pneumoniae, 23 Serotypes [employer] [facility] Comment on above: Once for 1 Occurrences starting 07/31/20 25 until 07/31/2025 Spirometry panel Incentive adam metry RT Respiratory Care Routine Every 2hr while awake until discontinued starting 08/08/2024 [employer] Comment on above: Every 2hr while awake until discontinued starting 08/08/2024 End: 11-30-2024 Splint application Splint application Procedures STAT One Time for 1 Occurrences starting 11/30/2024 until 11/30/2024 [employer] Comment on above: One Time for 1 Occurrences starting 06/2025 until 11/30/2024 Tissue Pathology bio psy report [facility] Work Phone: Comment on above: Release Upon Ordering for 1 Occurrences starting 01/23/2025, 1 completed End: 01-20-2025 Unlisted Lab Test Unlisted Lab Test Lab Routine Postlaminectomy syndrome, lumbar region Encounter for long-term opiate analgesic use 1 Occurrences starting 01/21/2024 until 01/20/2025 [facility] Comment on above: 1 Occurrences starting 01/21/2024 until 01/20/2025 Unlisted Lab Test UR INE DRUG SCREEN;PAIN MANAGEMENT Unlisted Lab Test URINE DRUG SCREEN;PAIN MANAGEMENT Lab Routine Postlaminectomy syndrome, lumbar region Encounter for long-term opiate analgesic use 01/21/2024 6:17 PM EDT [facility] End: 08-05-2024 Urinalysis with Microscopic Urinalysis with Microscopic Lab STAT One Time for 1 Occurrences starting 08/05/2024 until 08/05/2024 [employer] [facility] Comment on above: One Time for 1 Occurrences starting 07/22 until 08/05/2024 End: 07-14-2024 Vitamin B12 & Folate [facility] [facility] Comment on above: 1 Occurrences starting 07/14/2024 until 07/14/2024 End: 07-14-2024 Vitamin D 25 Hydroxy [employer] [facility] Comment on above: 1 Occurrences starting 07/14/2024 until 07/14/2024 End: 09-13-2025 XR Chest PA and Lateral XR CHEST 2V FRONTAL/LAT Radiology Routine IPMN (intraductal papillary mucinous neoplasm) Preoperative examination 1 Occurrences starting 08/14/2024 until 09/13/2025 [facility] Comment on above: 1 Occurrences starting 08/14/2024 until 09/13/2025 XR Elbow - left 3 Views XR ELBOW LEFT (MIN 3 VIEWS) Imaging STAT 11/30/2024 2:53 PM EST [facility] [facility] XR Hand - left 3 Views XR HAND L EFT (MIN 3 VIEWS) Imaging STAT 11/30/2024 2:53 PM EST [employer] Work Phone: Immunizations Immunization Date Immunization Notes Care Provider Fa cili 08-22-2024 DTP-Haemophilus influenzae type b conjugate vaccine Pacc 7 Work Phone: [facility] 08-22-2024 meningococcal (MenACWY-TT) vaccine, quadrivalent (MENQUADFI) Pacc 7 Work Phone: [facility] 08-22-2024 meningococcal B vacc ine, recombinant, OMV, adjuvanted Pac 7 Work Phone: [facility] 08-22-2024 pneumococcal conjuga te (PCV20) vaccine, 20 valent (PREVNAR 20) [facility] 7 Work Phone: [facility] Work Phone: 08-22-2024 meningococcal vaccin e of unknown formulation and unknown serogroups Mthz Schedule [facility] 08-14-2023 influenza virus vacc ine, unspecified formulation [employer] Work Phone: [facility] 08-13-2023 Influenza, injectabl e, Madin Allison Canine Kidney, preservative free, quadrivalent [employer] Work Phone: [facility] 07-14-2023 COVID-19, MODERNA, ( formula), (age 12y+), IM, 50mcg/0.5mL [employer] Work Phone: [facility] 07-07-2021 COVID-19, MODERNA BL UE border, Primary or Immunocompromised, (age 12y+), IM, 100 mcg/0.5mL [employer] Work Phone: [facility] 02-01-2021 COVID-19, MODERNA BL UE border, Primary or Immunocompromised, (age 12y+), IM, 100 mcg/0.5mL [employer] ECONOMICS ANALYST - PACKAGING SALES REPRESENTATIVE Work Phone: [facility] 01-03-2021 COVID-19, MODERNA BL UE border, Primary or Immunocompromised, (age 12y+), IM, 100 mcg/0.5mL [employer] ECONOMICS ANALYST - PACKAGING SALES REPRESENTATIVE Work Phone: [facility] 08-07-2020 zoster vaccine recombinant Koremer ECONOMICS ANALYST General Compression Work Phone: [facility] 06-29-2020 influenza virus vacc ine, unspecified formulation Joycelyn Smith MD Work Phone: [facility] 06-29-2020 influenza, injectabl e, quadrivalent, preservative free [employer] ECONOMICS ANALYST - [facility] Work Phone: [facility] 06-29-2020 influenza, seasonal, injectable [facility] Work Phone: [facility] 06-05-2020 zoster vaccine recombinant [facility] Work Phone: [facility] 08-01-2019 influenza, injectabl e, quadrivalent, preservative free [facility] - [facility] Work Phone: [facility] 09-17-2018 influenza, injectabl e, quadrivalent, preservative free [facility] - [facility] Work Phone: [facility] 10-01-2017 influenza virus vacc ine, unspecified formulation Joycelyn Smith MD Work Phone: [facility] 10-01-2017 influenza, injectabl e, quadrivalent, contains preservative [facility] - [facility] Work Phone: [facility] 08-06-2017 pneumococcal conjuga te vaccine, 13 valent [facility] - [facility] Work Phone: [facility] 07-07-2017 pneumococcal conjuga te vaccine, 13 valent [facility] - [facility] Work Phone: [facility] 01-17-2017 pneumococcal conjuga te vaccine, 13 valnegar HANLEY Work Phone: [facility] 01-17-2017 pneumococcal polysaccharide vaccine, 23 valent [facility] - [facility] Work Phone: [facility] 12-19-2016 pneumococcal polysaccharide vaccine, 23 valnegar HANLEY Work Phone: [facility] 08-17-2016 influenza virus vacc ine, unspecified formulation [facility] - [facility] Work Phone: [facility] Work Phone: 12-07-2013 tetanus toxoid, redu pierre diphtheria toxoid, and acellular pertussis vaccine, adsorbed Eliana Springer ECONOMICS ANALYST - PACKAGING SALES REPRESENTATIVE Work Phone: [facility] [employer] 11-01-2010 pneumococcal conjuga te vaccine, 13 valent Eliana Springer ECONOMICS ANALYST - PACKAGING SALES REPRESENTATIVE Work Phone: [facility] Payers Date Payer Category Payer Medicare (Managed Care) 1.2. [id number] 15 2024 Medicare [id number] 2024 Medicaid [id number]. [id number] 15 2023 Medicare [id number]. [id number] 2023 Medicare [id number] 1.2.840.797980.1.13.239.2.7.3.147049.315 2022 Unknown [id number] 2019 Medicaid [id number] 2006 Medicare [id number] 1969 Unknown [id number] 2.16.8 40.1.213178.3.579.2.93 1969 Unknown [id number] 2.16.8 40.1.288527.3.579.2.93 1969 Unknown [id number] 2.16.8 40.1.045097.3.579.2.93 1969 Unknown [id number] 2.16.8 40.1.233756.3.579.2.93 1969 Unknown [id number] 2.16.8 40.1.439050.3.579.2.93 1969 Unknown [id number] 2.16.8 40.1.237393.3.579.2.93 1969 Unknown [id number] 2.16.8 40.1.296651.3.579.2.93 1969 Unknown [id number] 2.16.8 40.1.973083.3.579.2. 1969 Unknown [id number] 2.16.8 40.1.612915.3.579.2. 1969 Unknown [id number] 2.16.8 40.1.613604.3.579.2. 1969 Unknown [id number] 2.16.8 40.1.709014.3.579.2. 1969 Unknown [id number] 2.16.8 40.1.602257.3.579.2. 1969 Unknown [id number] 2.16.8 40.1.707921.3.579.2. 1969 Unknown [id number] 2.16.8 40.1.668072.3.579.2.1285 1969 Unknown [id number] 2.16.8 40.1.515030.3.579.2.1285 1969 Unknown [id number] 2.16.8 40.1.588378.3.579.2.1285 1969 Unknown [id number] 2.16.8 40.1.662337.3.579.2.1285 1969 Unknown [id number] 2.16.8 40.1.537279.3.579.2.1285 1969 Unknown [id number] 2.16.8 40.1.294301.3.579.2.1285 1969 Unknown [id number] 2.16.8 40.1.609259.3.579.2.1285 1969 Unknown [id number] 2.16.8 40.1.991775.3.579.2.1285 1969 Unknown [id number] 2.16.8 40.1.880898.3.579.2.1285 1969 Unknown [id number] 2.16.8 40.1.676093.3.579.2.1286 1969 Unknown [id number] 2.16.8 40.1.887786.3.579.2.6 1969 Unknown [id number] 2.16.8 40.1.889233.3.579.2.1286 1969 Unknown [id number] 2.16.84 0.1.946021.3.579.2.6 1969 Unknown [id number] 2.16.840 .1.823206.3.579.2.128 1969 Unknown [id number] 2.16.8 40.1.651448.3.579.2.1285 1969 Unknown [id number] 2.16.8 40.1.668597.3.579.2.6 1969 Unknown [id number] 2.16. 840.1.980160.3.579.2.2 1969 Unknown [id number] 2.16. 840.1.736787.3.579.2.196 1969 Unknown [id number] 2.16. 840.1.791533.3.579.2. 1969 Unknown [id number] 2.16. 840.1.978600.3.579.2.196 1969 Unknown [id number] 2.16. 840.1.157371.3.579.2.196 1969 Unknown [id number] 2.16. 840.1.541028.3.579.2.196 1969 Unknown [id number] 2.16. 840.1.061491.3.579.2.196 1969 Unknown [id number] 2.16. 840.1.360528.3.579.2.196 1969 Unknown [id number] 2.16. 840.1.906913.3.579.2.196 1969 Unknown [id number] 2.16. 840.1.106924.3.579.2.196 1969 Unknown [id number] 2.16.8 40.1.761317.3.579.2.176 1969 Unknown [id number] 2.16.8 40.1.193785.3.579.2.173 1969 Unknown [id number] 2.16.8 40.1.281341.3.579.2.173 1969 Unknown [id number] 2.16.8 40.1.695728.3.579.2.173 1969 Unknown [id number] 2.16.8 40.1.667589.3.579.2.173 1969 Unknown [id number] 2.16.8 40.1.853144.3.579.2.173 1969 Unknown [id number] 2.16.8 40.1.790260.3.579.2.173 1969 Unknown [id number] 2.16.8 40.1.831851.3.579.2.173 1969 Unknown [id number] 2.16.8 40.1.856901.3.579.2.173 1969 Unknown [id number] 2.16.8 40.1.838037.3.579.2.173 1969 Unknown [id number] 2.16.8 40.1.961611.3.579.2.173 1969 Unknown [id number] 2.16.8 40.1.888213.3.579.2.173 1969 Unknown [id number] 2.16.8 40.1.926937.3.579.2.173 1969 Unknown [id number] 2.16.8 40.1.620078.3.579.2.173 1969 Unknown [id number] 2.16.8 40.1.664530.3.579.2.173 1969 Unknown [id number] 2.16.8 40.1.938183.3.579.2.173 1969 Unknown [id number] 2.16.8 40.1.918907.3.579.2.173 1969 Unknown [id number] 2.16.8 40.1.641059.3.579.2.173 1969 Unknown [id number] 2.16.8 40.1.533671.3.579.2.173 1969 Unknown [id number] 2.16.8 40.1.164035.3.579.2.173 1969 Unknown [id number] 2.16.8 40.1.445368.3.579.2.1259 Social History Date Type Detail Facility Start: 04-23-2023 End: 08-07-2025 Tobacco smoking status NHIS Never smoked tobacco [facility] Start: 04-23-2023 End: 08-07-2025 Tobacco use and exposure Smokeless tobacco non-user [facility] Start: 06-21-2023 End: 01-23-2025 Alcohol intake Ex-drinker (finding) [facility] Start: 04-23-2023 End: 05-19-2023 History SDOH Alcohol Frequency 1 [facility] Start: 05-19-2023 History SDOH Alcohol Std Drinks 0 [facility] Start: 04-23-2023 History SDOH Financial 5 [facility] Start: 04-23-2023 History SDOH Transpo rt Non-Med 2 [facility] Start: 02-04-2018 Alcohol Comment on occasion [facility] Start: 1970 Sex Assigned At Not on file [facility] [employer] Start: 05-19-2023 End: 08-07-2025 History of Social function [facility] Start: 05-19-2023 End: 08-07-2025 Alcohol Use Disorder Identification Test - Consumption [AUDIT-C] [facility] How often to you hav e a drink containing alcohol? Never [facility] Start: 01-03-2023 End: 07-14-2024 How many standard drinks containing alcohol do you have on a typical day? Patient does not drink [facility] (I/We) worried wheth er (my/our) food would run out before (I/we) got money to buy more. Never true [facility] At any time in the p ast 12 months, were you homeless or living in fci [including now]? No [facility] Tobacco smoking status No Smokin g Status Entered [facility] consumption unknown [facility] Start: 10-24-2023 End: 07-23-2025 Alcohol intake Lifetime non-drinker (finding) [facility] Start: 1970 Sex assigned at Male [facility] Start: 12-24-2024 Gender identity Identifies as male gender (finding) [facility] Start: 12-24-2024 Sexual orientation Heterosexual (fin piero) [facility] Start: 12-04-2012 Sex Male (finding) [employer] NEGATED: Highlighted rowStart: GARETTF History of tobacco use Passive smoker [facility] Medical Equipment Procedure Code Equipment Code Equipment Origin al Text Equipment Identifier Dates Use to check sug ars once a day [id number] Start: 08-22-2024 End: 09-19-2024 Use with insulin 5 times daily [id number] Start: 08-22-2024 Use to check sug ars once daily [id number] Start: 08-22-2024 Use to check sug ars once a day [id number] Start: 09-19-2024 Use to check sug ars 4 times daily. [id number] Start: 09-20-2024 Goals Date Patient Goal Desired Activity /State Personal health goal Comment on above: Formatting of this n ote might be different from the original. Would like to start walking dogs again Comment on above: Formatting of this n ote might be different from the original. Would like to start walking dogs again Functional Status Date Assessment Result Facility [facility] Clinical Notes 07-05-2023 to 08-07-2025 DAYAN Stovall - 08/07/2025 8:10 AM Kathy Mariee MD - 07/07/2025 7:39 AM EDTTelephone Encounter - Abimbola Raines - 07/01/2025 11:48 AM EDTDischarge InstructionsAttachmentsAttachments Note Date & Type Note Facility 08-07-2025 History of Present illness Narrative Skin Check Location: Patient requests a skin examination from the waist up; patient has multiple spots of concern on the face Dermatologic history: history of Actinic Keratosis Last visit: 5 years ago Established patient of Meg Joya MD. Last seen 05/17/2020 *currently on Levaquin for prostate infection All pertinent medical history, medications, and allergies were reviewed. General Exam: alert, oriented to person, place, and time, normal affect, well appearing A complete skin exam was offered, pt declined. Areas not examined despite medical recommendation: From the waist down Scalp, Examined Head, Face Examined Neck Examined Chest Examined Back Examined Abdomen Examined Right arm Examined Left arm Examined Hands Examined Digits,nails: Examined Lymphatics: Not examined Skin Exam 1. MELANOCYTIC NEVUS OF TRUNK (4) Abdomen (Lower Torso, Anterior), Generalized, Left Parotid Area, Torso - Posterior (Back) Scattered benign appearing, regular brown to light brown melanocytic papules and macules with similar morphology Counseled regarding these benign growths. Rarely, a nevus can develop into malignant melanoma, so any changing nevi should be promptly re-evaluated. 2. SEBACEOUS HYPERPLASIA Left Buccal Cheek, Mid Forehead, Right Buccal Cheek Small yellow papules with a central dell. Reassure, benign. Discussed these can be removed for a cosmetic fee with the hyfrecator if desired. 3. ANGIOFIBROMA (2) Mid Tip of Nose, Right Nasal Sidewall Small firm, smooth, skin-coloured, pink to red dome shaped papules. The patient was informed that fibrous papules are benign growths commonly found on the face. No treatment is necessary. Next Visit: 1 year documented in this encounter [facility] 07-07-2025 Note [facility] 07-07-2025 History of Present illness Narrative Images from the original note were not included. REASON FOR CONSULTATION: Pancreatic diabetes July 07, 2025 Virtual visit I have communicated my name and active licensure. The patient's identity and physical location were verified at the time of this visit. Either the patient or their legal dealer compliance representative has been informed of the risks and benefits of -- and alternatives to -- treatment through a remote evaluation and consents to proceed with the evaluation remotely. 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 - high stress - going through divorce - special need dog was sent to the [facility] to restore [facility] - he drank a powerade zero and [...] 4 tablets by mouth as needed. Insulin Grassflat, Disposable, (BD ULTRAFINE III MINI PEN) 31 gauge x 3/16 Use with insulin 5 times daily zbvkbn-opfftihx-smunplt (CREON 36) 36,000-114,000- 180,000 unit delayed release [...] PRN, # 1 EA, 0 Refill(s), Pharmacy: [address] amitriptyline (ELAVIL) 50 mg tablet Take 1 tablet by mouth daily at bedtime. amLODIPine (NORVASC) 2.5 mg tablet Take 1 tablet by mouth once daily. atorvastatin (LIPITOR) 40 mg tablet Take 1 tablet by mouth once daily. azelastine 0.1% nasal spray Use 1 [place] in each nostril two times a day. [...] now losing some of that support - haseebk for supplies - iLet and humalog - asked him to prebolus which he had been reluctant to do 3 month FU Kathy Bravo MD July 07, 2025 documented in this encounter [facility] 07-01-2025 Telephone encounter Note July 01, 2025 11:48 AM Last encounter Visit on 03/31/2025 (with Kathy Bravo) Fax TRELL clinical notes to [place] to [phone] Successfully transmitted Abimbola Diego Senior Database Administrator [facility] F-20 [facility] 07-01-2025 Miscellaneous Notes July 01, 2025 11:48 AM Last encounter Visit on 03/31/2025 (with Kathy Bravo) Fax TRELL clinical notes to [place] to [phone] Successfully transmitted Abimbola Diego Senior Database Administrator [facility] F-20 documented in this encounter [facility] 06-26-2025 Telephone encounter Note Images from the [...] on file in the last 12 months [facility] 06-26-2025 Miscellaneous Notes Images from the original [...] last 12 months documented in this encounter [facility] 06-18-2025 Hospital Discharge instructions Dmitry Tierney MD [...] attachments cannot be sent through Care Everywhere.Pneumonia (Mongolian)documented in this encounter [facility] 06-12-2025 Telephone encounter Note Physician Order form received from [employer] for Insulin pump supplies. Last encounter Visit on 03/31/2025 (with Kathy Bravo) Form completed and signed fax to [phone] Successfully transmitted Index jesika chart Abimbola Diego Senior Database Administrator [facility] F-20 [facility] 06-12-2025 Miscellaneous Notes Physician Order form received from [employer] for Insulin pump supplies. Last encounter Visit on 03/31/2025 (with Kathy Bravo) Form completed and signed fax to [phone] Successfully transmitted Index jesika chart Abimbola Diego Senior Database Administrator [facility] F-20 documented in this encounter [facility] 05-30-2025 History of Present illness Narrative Provider is aware of that patient is wanting home medications, provider to address needs as soon as able. Went to bedside to administer tramadol and tylenol for pain. Patient refused medications stating tramadol isnt going to cut it anymore. I am having severe 10/10 pain and need something stronger Crane Hoist Or Lift Operator did update provider on patient's request for [...] him sharing his intention to harm himself. Web Retailer served the [employer] of [employer] and relayed this information to the doctor. was anxious and tearful, and expressed gratitude. documented in this encounter [facility] 05-27-2025 History of Present illness Narrative Crane Hoist Or Lift Operator went over discharge instructions with pt at this time. Crane Hoist Or Lift Operator educated pt on new medications and possible [...] Planning: Continue current diet Obinna Landry RD, [place] Contact: [phone] Crane Hoist Or Lift Operator to bedside to complete morning assessment. Upon [...] whiteboard updated. Pt denies further needs from headline writer at this time. Call light in [...] Diagnostic Data: Complete Blood Count: Recent Labs 05/25/25 1759 [...] Well developed, well nourished with no malnutrition Account Support Analyst consult initiated I/O Daily weight Monitor Daily [...] Full Code Disposition: Discharge plan is home MIPS Advanced Care Planning documentation: [x] I have [...] medical record. [DOES NOT SATISFY MIPS PERFORMANCE] NATE Montenegro CNP , JOCELYN SULLIVAN-C Hospitalist Medicine 05/27/2025, 6:42 AM Cosigned by Irvin Shepard MD at 05/27/2025 12:49 PM EDT Associated attestation - Irvin Shepard MD - 05/27/2025 12:49 PM EDT Images from the original note were not included. [address], [address] Attestation Patient: Thomas Petty Date of Admission: 05/25/2025 5:23 PM Hospital Day # 2 Date of Evaluation: 05/27/2025 I personally evaluated and examined the patient [id number]-bjox in conjunction with the PA/PIT HAND and agree with the management and dispostition of the patient. Please see the PA/PIT HAND's note for full details. My greenfield findings [...] with the plan as outlined in the PIT HAND/PA's note Disposition: Discharge plan is pending Please note that this chart was generated using voice recognition [employer] dictation software. Although every effort was made to ensure the accuracy of this automated veterinary x ray operator, some errors in veterinary x ray operator may have occurred. Irvin Shepard MD 05/27/2025 12:48 PM Patient resting comfortably [...] care ongoing. Patients monitor read 134 when OTR VAN CDL TRUCK DRIVER checked his blood sugar with our meter. Our meter read 103. Patient states that he is going to calibrate his monitor/insulin pump to match our reading of 103. Dr. Toscano in to see pt. Spiritual Services Interventions 0318/0318-01 05/26/2025 Edith Petty 54 y.o. year old male Encounter [...] Pt spoke of possible going home today. Crane Hoist Or Lift Operator explained that he would likely not leave after less than 12 hours in the hospital and he still needed to see the surgeon. Pt and significant other stated understanding. Updated them with the name of the surgeon that would be coming to see him today. Both were thankful for information. [facility] Inpatient/Observation Date: 05/26/2025 Patient Name: Thomas Petty [...] LANDRY, PT Date: 05/26/2025 Cosigned by Rosenda Rankin, ECONOMICS ANALYST - PACKAGING SALES REPRESENTATIVE at 05/26/2025 9:57 PM EDT [facility] Inpatient/Observation/Outpatient Rehabilitation Date: 05/26/2025 Patient Name: Thomas [...] Well developed, well nourished with no malnutrition Account Support Analyst consult initiated I/O Daily weight Monitor Daily [...] Full Code Disposition: Discharge plan is pending [facility] Advanced Care Planning documentation: [x] I have [...] Medicine 05/26/2025, 9:08 AM Cosigned by Irvin Shepard MD at 05/26/2025 5:57 PM EDT Associated attestation - Irvin Shepard MD - 05/26/2025 5:57 PM EDT Images from the original note were not included. [address], [address] Attestation Patient: Thomas Petty Date of Admission: 05/25/2025 5:23 PM Hospital Day # 1 Date of Evaluation: 05/26/2025 I personally evaluated and examined the patient [id number] in conjunction with the PA/PIT HAND and agree with the management and dispostition of the patient. Please see the PA/PIT HAND's note for full details. My greenfield findings [...] Intake/Output Summary (Last 24 hours) at 05/26/2025 1757 Last data filed at 05/26/2025 1716 Gross [...] DATA: Complete Blood Count: Recent Labs 05/25/25 17505/26/25 0535 WBC 12.5* 11.5* RBC 4.16* 4.20* HGB 12.2* 12.1* HCT 37.2* 37.7* MCV 89.4 89.8 RDW 13.5 13.7 PLT 433 452 Recent Labs 05/25/25 17505/26/25 0535 NEUTROABS 7.20 6.25 LYMPHOPCT 29 32 [...] with the plan as outlined in the PIT HAND/PA's note Disposition: Discharge plan is pending Please note that this chart was generated using voice recognition [employer] dictation software. Although every effort was made to ensure the accuracy of this automated veterinary x ray operator, some errors in veterinary x ray operator may have occurred. Irvin Shepard MD 05/26/2025 5:57 PM Patients blood sugar [...] aware. Patient arrived to room from ED, headline writer received report from ED Nurse, Yesenia [...] of care ongoing. documented in this encounter [facility] 05-27-2025 Hospital Discharge instructions Sneha Sims [...] most local grocery stores, pharmacies, and chain [employer]. If you have any questions about your diet or nutrition, call the hospital and ask for the dietitian. *General, carb control diet documented in this encounter [facility] 05-27-2025 Hospital course Narrative Images from the original note were not included. Discharge Summary Thomas Petty : 1970 Admit date: 05/25/2025 Discharge date: 05/27/2025 Admitting Physician: Irvin Shepard MD Discharge Diagnoses: Principal Problem: Acute pneumonia [...] TRICOR Take 1 tablet by mouth daily eva Toscano pharmacy: Please dispense generic fenofibrate unless prescriber denote START taking these medications amoxicillin-clavulanate 875-125 MG per tablet Commonly known as: AUGMENTIN Take 1 tablet by mouth every 12 hours for 15 doses doxycycline hyclate 100 MG capsule Commonly known as: VIBRAMYCIN Take 1 capsule by mouth every 12 hours for 15 doses CHANGE how you take these medications apipza-nnacbdfw-jlizmcl 32225-528862 units Cpep delayed release capsule Commonly known as: CREON Creon 45109 units oral delayed release capsule: TAKE 2 [...] PRN, # 1 EA, 0 Refill(s), Pharmacy: [address] promethazine 25 MG tablet Commonly known [...] Your Medications These medications were sent to [facility] [id number] - [facility] [address] [facility] - P [phone] - F [phone] [address] [facility] [address] amoxicillin-clavulanate 875-125 MG per tablet doxycycline hyclate 100 MG capsule Patient Instructions: Activity: activity as tolerated Diet: regular diet Wound Care: none needed Other: None Disposition: Discharge to Home Follow up: Patient will be followed by Eliana Springer APRN - CNP in 1-2 weeks CORE MEASURES on Discharge (if applicable) JESSICA/ARB in CHF: NA Statin in [place]: NA ASA in [place]: NA Statin in CVA: NA Antiplatelet in CVA: NA Total time spent on discharge services: 40 minutes Including the following activities: Evaluation and Management of patient Discussion with patient and/or surrogate about current care plan Coordination with Case Management and/or Rodding Anode Worker Coordination of care with Consultants (if applicable) Coordination of care with Receiving Facility Physician (if applicable) Completion of DME forms (if applicable) Preparation of Discharge Summary Preparation of Medication Reconciliation Preparation of Discharge Prescriptions Signed: NATE Montenegro CNP, NATE PIT HAND-C 05/27/2025, 11:43 AM Please note that this chart was generated using voice recognition [employer] dictation software. Although every effort was made to ensure the accuracy of this automated veterinary x ray operator, some errors in veterinary x ray operator may have occurred. Cosigned by Irvin Shepard MD at 05/27/2025 12:49 PM EDT Associated attestation - Irvin Shepard MD - 05/27/2025 12:49 PM EDT Images from the original note were not included. [address] , [place], [place], [address] Attestation Patient: Thomas Petty Date of Admission: 05/25/2025 5:23 PM Hospital Day # 2 Date of Evaluation: 05/27/2025 I personally evaluated and examined the patient [id number]-[id number] in conjunction with the PA/PIT HAND and agree with the management and dispostition of the patient. Please see the PA/PIT HAND's note for full details. My greenfield findings [...] care plan Coordination with Case Management and/or Rodding Anode Worker Coordination of care with Consultants (if applicable) [...] this chart was generated using voice recognition [employer] dictation software. Although every effort was made to ensure the accuracy of this automated veterinary x ray operator, some errors in veterinary x ray operator may have occurred. Irvin Shepard MD 05/27/2025 12:49 PM documented in this encounter [facility] [place] 05-25-2025 Note Previous cholecystec bright, splenectomy, and [...] early infiltrates posteriorly which is more prominent. [facility] 04-28-2025 Telephone encounter Note April 28, 2025 3:07 PM Last encounter Visit on 03/31/2025 (with Kathy Bravo) [place] called regarding TRELL notes to be sent to [phone] for Insulin Pump supplies. Transmission successful. Madhuri Barlow [facility] X[facility] 04-28-2025 Miscellaneous Notes April 28, 2025 3:07 PM Last encounter Visit on 03/31/2025 (with Kathy Brvao) [place] called regarding TRELL notes to be sent to [phone] for Insulin Pump supplies. Transmission successful. Madhuri Barlow [facility] X20 documented in this encounter [facility] 04-03-2025 Telephone encounter Note Records sent (egd, pathology and operative report) [facility] 04-03-2025 Miscellaneous Notes Records sent (egd, pathology and operative report) Pt is calling to inform that his employer needs additional info for his EGD/documentation from before procedure and the Biopsy / Operative Note from after the procedure, pt state the information can be uploaded to his MyChart and he can get it to his employer. Contact info: [phone] documented in this encounter [facility] 04-03-2025 Telephone encounter Note Pt is calling to inform that his employer needs additional info for his EGD/documentation from before procedure and the Biopsy / Operative Note from after the procedure, pt state the information can be uploaded to his MyChart and he can get it to his employer. Contact info: [phone] [facility] 03-31-2025 Note [facility] 03-31-2025 History of Present illness Narrative Images from the original note were not included. REASON FOR CONSULTATION: Pancreatic diabetes December 24, 2024 Virtual visit I have communicated my name and active licensure. The patient's identity and physical location were verified at the time of this visit. Either the patient or their legal dealer compliance representative has been informed of the risks [...] 4 tablets by mouth as needed. Insulin Grassflat, Disposable, (BD ULTRAFINE III MINI PEN) 31 gauge x 3/16 Use with insulin 5 times daily breqpo-ksqhygfb-ctcxosu (CREON 36) 36,000-114,000- 180,000 unit delayed release [...] PRN, # 1 EA, 0 Refill(s), Pharmacy: [address] amitriptyline (ELAVIL) 50 mg tablet Take 1 tablet by mouth daily at bedtime. amLODIPine (NORVASC) 2.5 mg tablet Take 1 tablet by mouth once daily. atorvastatin (LIPITOR) 40 mg tablet Take 1 tablet by mouth once daily. azelastine 0.1% nasal spray Use 1 [place] in each nostril two times a day. [...] for this visit. ALLERGIES Allergen Reactions Codeine Hives Zofran [Ondansetron] Hives REVIEW OF SYSTEMS Answers submitted by the [...] March 31, 2025 documented in this encounter [facility] 03-31-2025 Telephone encounter Note March 31, 2025 9:54 AM Last encounter Visit on 12/24/2024 (with Kathy Bravo) Erniemaura Malinda called regarding needing an appointment in order to have his supplies shipped from [facility]. Per patient his insurance, he needs to be seen every 3 months in order to continue getting supplies so his 12/24/24 notes are no longer valid. Patient was originally transferred from the front end software engineer to be helped with being scheduled soon. Please advise. Stephanie Hopson Senior Database Administrator II Diabetes & Endocrinology X-20 [facility] 03-31-2025 Miscellaneous Notes March 31, 2025 9:54 AM Last encounter Visit on 12/24/2024 (with Kathy Bravo) Thomas Petty called regarding needing an appointment in order to have his supplies shipped from [facility]. Per patient his insurance, he needs to be seen every 3 months in order to continue getting supplies so his 12/24/24 notes are no longer valid. Patient was originally transferred from the front end software engineer to be helped with being scheduled soon. Please advise. Stephanie Hopson Senior Database Administrator II Diabetes & Endocrinology X-20 documented in this encounter [facility] 03-18-2025 Telephone encounter Note Received request for TRELL Notes from [place] via fax Sent notes from 12-24-[address] Bravo [phone] Transmitted successfully Katherin Justice Senior Database Administrator II Endocrinology & Metabolism [facility] X-20, F-20 [facility] 03-18-2025 Miscellaneous Notes Received request for TRELL Notes from [place] via fax Sent notes from 12-24-[address] Bravo [phone] Transmitted successfully Katherin Justice Senior Database Administrator II Endocrinology & Metabolism [facility] X-20, F-20 documented in this encounter [facility] 03-04-2025 Miscellaneous Notes March 04, 2025 4:07 PM Last encounter Visit on 12/24/2024 (with Kathy Bravo) Thomas Petty called regarding asking to send his TRELL notes of 12/24/2024 to [facility] at [phone]. Transmitted successfully. Madhuri Barlow Senior Database Administrator [facility] X20 documented in this encounter [facility] 03-04-2025 Telephone encounter Note March 04, 2025 4:07 PM Last encounter Visit on 12/24/2024 (with Kathy Bravo) Thomas Petty called regarding asking to send his TRELL notes of 12/24/2024 to [facility] at [phone]. Transmitted successfully. Madhuri Barlow Senior Database Administrator [facility] Building X20 [facility] 02-24-2025 Hospital Discharge instructions Farida Gibbons DO - 02/24/2025 12:33 PM EDT Continue to apply ice to areas of discomfort, okay to take Tylenol for pain control elevate when able, follow-up with your primary care provider. documented in this encounter [facility] 02-17-2025 Telephone encounter Note Images from the original note were not included. Most recent Endocrinology visit: Last encounter Visit on 12/24/2024 (with Kathy Bravo) 08/22/2024 in [facility] with KATHY BRAVO for Post-pancreatectomy diabetes (HCC) [...] on file in the last 12 months [facility] 02-17-2025 Miscellaneous Notes Images from the original [...] last 12 months documented in this encounter [facility] 01-23-2025 Nurse Note AMBULATORY PATIENT EDUCATION NOTE [...] MATERIAL: Procedure Discharge Instructions REFERRAL (RECOMMENDATION): None [facility] 01-23-2025 Nurse Note AMBULATORY PATIENT EDUCATION NOTE [...] In Department: GASTROENTEROLOGY documented in this encounter [facility] 01-23-2025 Note Q3 Patient Name: Thomas Petty Procedure Date: 01/23/2025 3:08 PM Date of : 1970 Admit Type: Outpatient Age: 54 Gender: Male Note Status: Finalized Attending MD: Dariusz Pratt MD, [id number] Procedure: Upper GI endoscopy Indications: Epigastric abdominal [...] changes classified as Dong's stage C3-M5 per Cambridge criteria present in the lower third of [...] changes classified as Dong's stage C3-M5 per Cambridge criteria. Biopsied. - Bile gastritis, characterized by erythema. Biopsied. Estimated Blood Loss: Estimated blood loss: none. Recommendation: - Await pathology results. - Patient has a contact number available for emergencies. The signs and symptoms of potential delayed complications were discussed with the patient. Return to normal activities tomorrow. Written discharge instructions were provided to the patient. Procedure Code(s): --- Professional --- 70135 Diagnosis Code(s): --- Professional --- K22.70 K29.60 Z90.411 Z90.49 R10.13 CPT copyright 2020 [employer]. All rights reserved. Attending Participation: [...] By: Carmel Kim RN In Department: GASTROENTEROLOGY [facility] 01-16-2025 Nurse Note GI Pre-Procedure Spoke with [...] have family/friend present for procedure transport home:Patient/patient dealer compliance representative was told that if they do not [...] area. Any barriers to Patient learning: Patient/Patient Cable Technician responded appropriately on phone. Type of instruction given: Verbal by telephone contact. Bacilio Nowak RN [facility] 01-16-2025 Nurse Note GI Pre-Procedure Spoke with [...] have family/friend present for procedure transport home:Patient/patient dealer compliance representative was told that if they do not [...] area. Any barriers to Patient learning: Patient/Patient Cable Technician responded appropriately on phone. Type of instruction given: Verbal by telephone contact. Bacilio Nowak RN documented in this encounter [facility] 01-05-2025 Nurse Note AMBULATORY PATIENT EDUCATION NOTE [...] MATERIAL: Procedure Discharge Instructions REFERRAL (RECOMMENDATION): None [facility] 01-05-2025 Nurse Note AMBULATORY PATIENT EDUCATION NOTE [...] In Department: GASTROENTEROLOGY documented in this encounter [facility] 01-05-2025 History and physical note PROCEDURAL SEDATION [...] (BAQSIMI) 3 mg/actuation nasal spray Use 1 [place] in the nose as needed. May repeat after 15 minutes using a new device if there is no response. glucose 4 gram chewable tablet Take 4 tablets by mouth as needed. Insulin Grassflat, Disposable, (BD ULTRAFINE III MINI PEN) 31 gauge x 3/16 Use with insulin 5 times daily qeiiev-yeqinoqz-lwhhwum (CREON 36) 36,000-114,000- 180,000 unit delayed release [...] PRN, # 1 EA, 0 Refill(s), Pharmacy: [address] amitriptyline (ELAVIL) 50 mg tablet Take 1 tablet by mouth daily at bedtime. azelastine 0.1% nasal spray Use 1 [place] in each nostril two times a day. [...] 05, 2025 TIME: 2:49 PM Created 2023 [facility] Work Phone: 01-05-2025 History and physical note [...] (BAQSIMI) 3 mg/actuation nasal spray Use 1 [place] in the nose as needed. May repeat after 15 minutes using a new device if there is no response. glucose 4 gram chewable tablet Take 4 tablets by mouth as needed. Insulin Grassflat, Disposable, (BD ULTRAFINE III MINI PEN) 31 gauge x 3/16 Use with insulin 5 times daily vimjpq-bslxwaso-mgfgdps (CREON 36) 36,000-114,000- 180,000 unit delayed release [...] PRN, # 1 EA, 0 Refill(s), Pharmacy: [address] amitriptyline (ELAVIL) 50 mg tablet Take 1 tablet by mouth daily at bedtime. azelastine 0.1% nasal spray Use 1 [place] in each nostril two times a day. [...] 2:49 PM 2023 documented in this encounter [facility] 01-05-2025 Nurse Note PRE OP LEARNING ASSESSMENT PROCEDURE/SURGERY: GI PROCEDURES: EGD READINESS TO LEARN COGNITIVE ABILITY: Alert and oriented MOTIVATION TO LEARN: Interested FAMILY SUPPORT: None - Unavailable/disinterested PATIENT LEARNS BEST BY: Individual Instruction FACTORS AFFECTING LEARNING: None PHYSICAL LIMITATIONS AFFECTING LEARNING: None Electronically Signed By: Estelle Marvin RN In Department: GASTROENTEROLOGY [facility] 12-29-2024 Telephone encounter Note TRELL 12-24-[address] Bravo Received DWO for Infusion Supplies from [facility] Sent to provider for review, signature, completion Katherin Justice Senior Database Administrator II Endocrinology & Metabolism [facility] X-20, F-20 [facility] 12-29-2024 Miscellaneous Notes TRELL 12-24-[address] Bravo Received DWO for Infusion Supplies from [facility] Sent to provider for review, signature, completion Katherin Justice Senior Database Administrator II Endocrinology & Metabolism [facility] X-20, F-20 documented in this encounter [facility] 12-29-2024 Nurse Note GI Pre-Procedure Spoke with [...] have family/friend present for procedure transport home:Patient/patient dealer compliance representative was told that if they do not [...] area. Any barriers to Patient learning: Patient/Patient Cable Technician responded appropriately on phone. Type of instruction given: Verbal by telephone contact. Claudine Mendez RN [facility] 12-29-2024 Nurse Note GI Pre-Procedure Spoke with [...] have family/friend present for procedure transport home:Patient/patient dealer compliance representative was told that if they do not [...] area. Any barriers to Patient learning: Patient/Patient Cable Technician responded appropriately on phone. Type of instruction given: Verbal by telephone contact. Claudine Mendez RN documented in this encounter [facility] 12-24-2024 Note [facility] 12-24-2024 History of Present illness Narrative Images from the original note were not included. REASON FOR CONSULTATION: Pancreatic diabetes December 24, 2024 Virtual visit I have communicated my name and active licensure. The patient's identity and physical location were verified at the time of this visit. Either the patient or their legal dealer compliance representative has been informed of the risks [...] (BAQSIMI) 3 mg/actuation nasal spray Use 1 [place] in the nose as needed. May repeat after 15 minutes using a new device if there is no response. glucose 4 gram chewable tablet Take 4 tablets by mouth as needed. Insulin Grassflat, Disposable, (BD ULTRAFINE III MINI PEN) 31 gauge x 3/16 Use with insulin 5 times daily blatzb-jnmzcdyp-rzperyb (CREON 36) 36,000-114,000- 180,000 unit delayed release [...] PRN, # 1 EA, 0 Refill(s), Pharmacy: [address] amitriptyline (ELAVIL) 50 mg tablet Take 1 tablet by mouth daily at bedtime. amLODIPine (NORVASC) 2.5 mg tablet Take 1 tablet by mouth once daily. atorvastatin (LIPITOR) 40 mg tablet Take 1 tablet by mouth once daily. azelastine 0.1% nasal spray Use 1 [place] in each nostril two times a day. [...] ALLERGIES Allergen Reactions Codeine Bel Zofran [Ondansetron] Hives REVIEW OF SYSTEMS Answers submitted by the [...] December 24, 2024 documented in this encounter [facility] 12-23-2024 History of Present illness Narrative virtual [...] Kayleen Jacobson MD documented in this encounter [facility] 12-23-2024 Note [facility] 12-05-2024 Hospital Discharge instructions Dmitry Tierney MD [...] cannot be sent through Care Everywhere.Abdominal Pain (Mongolian)Chest Pain: Musculoskeletal (Mongolian)documented in this encounter [facility] 12-04-2024 Telephone encounter Note Patient called to inquire if there is metal clips on right side from surgery. He fell and had imaging done locally and would like for Dr. Jacobson to review. Phone number [phone] Will work to request imaging for review [facility] 12-04-2024 Miscellaneous Notes Patient called to inquire if there is metal clips on right side from surgery. He fell and had imaging done locally and would like for Dr. Jacobson to review. Phone number [phone] Will work to request imaging for review Pt is calling because he is having rib pain. Pt got Xray done and it seems to be a medal clip or something in him. He wants to speak with someone about it. documented in this encounter [facility] 12-04-2024 Telephone encounter Note Pt is calling because he is having rib pain. Pt got Xray done and it seems to be a medal clip or something in him. He wants to speak with someone about it. [facility] 12-01-2024 Telephone encounter Note Patient emailed paperwork for review by provider [facility] 12-01-2024 Miscellaneous Notes Patient emailed paperwork for review by provider Pt needs information about his surgery asked to speak with nurse documented in this encounter [facility] 02-10-2025 Telephone encounter Note Pt needs information about his surgery asked to speak with nurse [facility] 11-30-2024 Hospital Discharge instructions Sid Sinclair II, [...] cannot be sent through Care Everywhere.Hand Sprain (Mongolian)Contusion (Mongolian)documented in this encounter [facility] 10-31-2024 History of Present illness Narrative Images from the original note were not included. REASON FOR CONSULTATION: Pancreatic diabetes October 31, 2024 I have communicated my name and active licensure. The patient's identity and physical location were verified at the time of this visit. Either the patient or their legal dealer compliance representative has been informed of the risks [...] (BAQSIMI) 3 mg/actuation nasal spray Use 1 [place] in the nose as needed. May repeat after 15 minutes using a new device if there is no response. glucose 4 gram chewable tablet Take 4 tablets by mouth as needed. Insulin Grassflat, Disposable, (BD ULTRAFINE III MINI PEN) 31 gauge x 3/16 Use with insulin 5 times daily wihyfq-uubqwthx-iiyyyhd (CREON 36) 36,000-114,000- 180,000 unit delayed release [...] PRN, # 1 EA, 0 Refill(s), Pharmacy: [address] amitriptyline (ELAVIL) 50 mg tablet Take 1 tablet by mouth daily at bedtime. amLODIPine (NORVASC) 2.5 mg tablet Take 1 tablet by mouth once daily. atorvastatin (LIPITOR) 40 mg tablet Take 1 tablet by mouth once daily. azelastine 0.1% nasal spray Use 1 [place] in each nostril two times a day. [...] October 31, 2024 documented in this encounter [facility] 10-31-2024 Note [facility] 10-24-2024 Telephone encounter Note Called Patient and discussed new pump with him. Patient states he is happy with it and is utilizing meal announcing correctly. No changes made at this time. [facility] Work Phone: 10-24-2024 Miscellaneous Notes Called Patient and discussed new pump with him. Patient states he is happy with it and is utilizing meal announcing correctly. No changes made at this time. documented in this encounter [facility] 10-07-2024 Note [facility] 10-07-2024 History of Present illness Narrative DIABETES SELF-MANAGEMENT EDUCATION AND SUPPORT FOLLOW-UP VISIT Type of Diabetes: Other Location: [facility] [place] Type of visit: In person individual Types [...] None This is a non-billable encounter through [employer] but will be billed to the following pump company: [employer]. This visit note will be communicated to [...] 12:12 PM PAGER: documented in this encounter [facility] 10-02-2024 Note [facility] 10-02-2024 History of Present illness Narrative DIABETES SELF-MANAGEMENT EDUCATION AND SUPPORT Location: [facility] [place] Type of visit: In person individual Types [...] Race/Ethnic Origin: White/ Does your culture or confucianism require any of the following: No cultural/shinto practices affecting DM Do you have problems [...] (BAQSIMI) 3 mg/actuation nasal spray Use 1 [place] in the nose as needed. May repeat after 15 minutes using a new device if there is no response. glucose 4 gram chewable tablet Take 4 tablets by mouth as needed. Insulin Grassflat, Disposable, (BD ULTRAFINE III MINI PEN) 31 gauge x 3/16 Use with insulin 5 times daily ditklx-vcryatiw-pmtlzsq (CREON 36) 36,000-114,000- 180,000 unit delayed release [...] PRN, # 1 EA, 0 Refill(s), Pharmacy: [address] amitriptyline (ELAVIL) 50 mg tablet Take 1 tablet by mouth daily at bedtime. amLODIPine (NORVASC) 2.5 mg tablet Take 1 tablet by mouth once daily. atorvastatin (LIPITOR) 40 mg tablet Take 1 tablet by mouth once daily. azelastine 0.1% nasal spray Use 1 [place] in each nostril two times a day. [...] asked/not answered Glucose Monitoring: Device: CGM (type: Canvita G7) Checking frequency: continuous (using CGM) Checking [...] 12:34 PM PAGER: documented in this encounter [facility] 10-02-2024 Telephone encounter Note DWO form received from [employer] for Insulin pump. Form completed and submitted to provider for review/signature. [facility] 10-02-2024 Miscellaneous Notes DWO form received from [employer] for Insulin pump. Form completed and submitted to provider for review/signature. documented in this encounter [facility] 09-30-2024 Note [facility] 09-30-2024 History of Present illness Narrative Images [...] nasal spray Generic drug: glucagon Use 1 [place] in the nose as needed. May repeat [...] 50 units in insulin pump daily Insulin Grassflat (Disposable) 31 gauge x 3/16 Commonly known as: BD Ultrafine III Mini Pen Use with insulin 5 times daily Lancets Use to check sugars once daily eeuapn-plejfhid-eftundn 36,000-114,000- 180,000 unit delayed release capsule Commonly [...] Your Medications These medications were sent to [facility] [id number] [place] [address] - [address] [facility] [phone] SR18 ([facility] [place]) [id number] [address] [facility] [address] promethazine 25 mg suppository PATHOLOGY FINAL DIAGNOSIS [...] Fowler MD September 30, 2024 11:30 AM [facility] STAFF PHYSICIAN NOTE OF PERSONAL [...] Service: 11:28 AM documented in this encounter [facility] 09-30-2024 Note [facility] 09-26-2024 Telephone encounter Note Benji, This patient [...] would prefer this training gets reassigned. Thanks! [facility] Work Phone: 09-26-2024 Miscellaneous Notes Benji, [...] gets reassigned. Thanks! documented in this encounter [facility] 09-24-2024 Telephone encounter Note Spoke with patient. He is having extreme lows and bottoming out with vomiting, diaphoresis. No sensor. Would recommend that he drop to 17 units and also reduce humalog to 4 units. Also let him know moving forwards to inform me of any issues. Already messaged and texted our rep at [facility]. They will look into situation. I emailed back the form that was requested. He had approval for pump and sensors back on 09/12. Appreciated call and all questions answered. Kathy Bravo MD September 24, 2024 [facility] 09-24-2024 Miscellaneous Notes Spoke with patient. He is having extreme lows and bottoming out with vomiting, diaphoresis. No sensor. Would recommend that he drop to 17 units and also reduce humalog to 4 units. Also let him know moving forwards to inform me of any issues. Already messaged and texted our rep at [facility]. They will look into situation. I emailed back the form that was requested. He had approval for pump and sensors back on 09/12. Appreciated call and all questions answered. Kathy Bravo MD September 24, 2024 documented in this encounter [facility] 09-24-2024 Telephone encounter Note Received on-call page from water plant pump operator need authorization form for Supplier for urgent supplies rodney . Called patient, and he connected me in a three-way call with [facility] (supplier) who explained that they needed a [...] call so he can continue conversation with [facility] dealer compliance representative independently. 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 Called patient, and he connected me in a three-way call with [employer] (supplier) who explained that they needed a [...] call so he can continue conversation with [facility] dealer compliance representative independently. Jennifer Jenkins MD Clinical Fellow, Endocrinology DWO form received from [employer] for insulin infusion catheter and supplies for EXT insulin infusion pump. Form completed and submitted to provider for review/signature. Stephanie Hopson Senior Database Administrator II Diabetes & Endocrinology X-20 documented in this encounter [facility] 09-24-2024 Telephone encounter Note DWO form received from [employer] for insulin infusion catheter and supplies for EXT insulin infusion pump. Form completed and submitted to provider for review/signature. Stephanie Hopson Senior Database Administrator II Diabetes & Endocrinology X-20 [facility] 09-19-2024 Telephone encounter Note This will be addressed by [employer] and also the medical supplier. I have not had to ever call in authorizations on pumps and do not feel comfortable doing so. Would be better to go through standard protocol here. Kathy Bravo MD September 19, 2024 [facility] 09-19-2024 Miscellaneous Notes This will be addressed by [employer] and also the medical supplier. I have not had to ever call in authorizations on pumps and do not feel comfortable doing so. Would be better to go through standard protocol here. Kathy Bravo MD September 19, 2024 Received a call from [facility] stating patient would like an insulin pump. However, an insulin pump would require a prior authorization. Agent advised the fastest way to expedite the authorization would be to do this would be via phone. Provider line [phone] Provider/PA team would have to provide: -- recent labs (would not specify which ones) -- what brand/type of pump patient would be ordering JORGE WOODS Senior Database Administrator II Endocrinology & Metabolism [facility] X-20 documented in this encounter [facility] 09-19-2024 Telephone encounter Note Requester: Patient [...] PSS NOTE: Patient needs scheduled appointment No [facility] 09-19-2024 Miscellaneous Notes Requester: Patient Patients [...] scheduled appointment No documented in this encounter [facility] 09-15-2024 Telephone encounter Note Faxed form to [employer] for sensors and receivers. Successfully transmitted to [phone]. Neema Saucedo Senior Database Administrator [facility]-F20 [facility] 09-15-2024 Miscellaneous Notes Faxed form to [employer] for sensors and receivers. Successfully transmitted to [phone]. Neema Saucedo Senior Database Administrator [facility]-F20 documented in this encounter [facility] 09-09-2024 Telephone encounter Note Received a call from [facility] stating patient would like an insulin pump. However, an insulin pump would require a prior authorization. Agent advised the fastest way to expedite the authorization would be to do this would be via phone. Provider line [phone] Provider/PA team would have to provide: -- recent labs (would not specify which ones) -- what brand/type of pump patient would be ordering JORGE WOODS Senior Database Administrator II Endocrinology & Metabolism [facility] X-20 [facility] 09-09-2024 Note [facility] 09-09-2024 History of Present illness Narrative Images from the original note were not included. REASON FOR CONSULTATION: Pancreatic diabetes September 09, 2024 I have communicated my name and active licensure. The patient's identity and physical location were verified at the time of this visit. Either the patient or their legal dealer compliance representative has been informed of the risks [...] Relion meter [facility] Usually very well controlled Sometimes a bit [...] (BAQSIMI) 3 mg/actuation nasal spray Use 1 [place] in the nose as needed. May repeat after 15 minutes using a new device if there is no response. glucose 4 gram chewable tablet Take 4 tablets by mouth as needed. Insulin Grassflat, Disposable, (BD ULTRAFINE III MINI PEN) 31 gauge x 3/16 Use with insulin 5 times daily bbixef-bnctjeov-dcoopih (CREON 36) 36,000-114,000- 180,000 unit delayed release [...] PRN, # 1 EA, 0 Refill(s), Pharmacy: [address] amitriptyline (ELAVIL) 50 mg tablet Take 1 tablet by mouth daily at bedtime. amLODIPine (NORVASC) 2.5 mg tablet Take 1 tablet by mouth once daily. atorvastatin (LIPITOR) 40 mg tablet Take 1 tablet by mouth once daily. azelastine 0.1% nasal spray Use 1 [place] in each nostril two times a day. [...] there is good support ( has the [employer]) - he is interested in the iLet [...] September 09, 2024 documented in this encounter [facility] 09-09-2024 Telephone encounter Note Sorry, just got back to desk. Is there another time you are able to offer him that I can tell him? Thanks, MAURICIO Waggoner RN [facility] f [facility] 09-09-2024 Miscellaneous Notes Sorry, just got back to desk. Is there another time you are able to offer him that I can tell him? Claudine Schwartz BSN RN [facility] f Patient called in for high [...] any dosage adjustments. Thanks, MAURICIO Waggoner RN [facility] documented in this encounter [facility] 09-09-2024 Telephone encounter Note Patient called [...] any dosage adjustments. Thanks, MAURICIO Waggoner RN [facility] 09-05-2024 Hospital Discharge instructions Dariusz Smith MD - 09/05/2024 11:00 PM EST Follow-up with your primary care physician soon as possible ideally on Sunday Return to Emergency Department immediately if getting worse. Or if you develop any new or concerning symptoms. This includes but is not limited to fevers, confusion, weakness in the arms The following attachments cannot be sent through Care Everywhere.Cervical Strain (Mongolian)documented in this encounter [facility] 09-05-2024 Telephone encounter Note Patient advised to take tylenol and heat for neck pain. Patient scheduled to see pain mgmt 10/08 and asked for him to see pain mgmt sooner. Will order for more pain medication but we cannot manage his chronic pain [facility] 09-05-2024 Miscellaneous Notes Patient advised to [...] normal after surgery documented in this encounter [facility] 09-05-2024 Telephone encounter Note Pt is calling because he staes he is having neck pain wants to know if that is normal after surgery [facility] 09-03-2024 Note [facility] 09-02-2024 Note [facility] 09-01-2024 Note [facility] 09-01-2024 Note [facility] 08-31-2024 Note HNO ID: [id number] Author: AVTAR VAZQUEZ RN Service: ? Author Type: Registered Nurse Type: Progress Notes Filed: 08/31/2024 10:55 Note Text: Report called to H50-11 RN. Pt has all belongings and aware. Pt transported in wheelchair with CT. [facility] 08-31-2024 Note [facility] 08-31-2024 Note [facility] 08-30-2024 Note [facility] 08-30-2024 Note [facility] 08-30-2024 Note [facility] 08-29-2024 Note [facility] 08-29-2024 Note [facility] 08-29-2024 Note [facility] 08-28-2024 Note [facility] 08-28-2024 Note [facility] 08-28-2024 Note [facility] 08-28-2024 Note [facility] 08-28-2024 Note [facility] 08-28-2024 Note [facility] 08-22-2024 Note [facility] 08-22-2024 History of Present illness Narrative [facility] Name: Thomas Petty MR#: [id number] Date: 08/22/2024 Time: hour Referred by: Dr. Jacobson Reason for Referral: address psychological factors as they can affect post-operative recovery. 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 documented in this encounter [facility] 08-22-2024 Note [facility] 08-22-2024 History of Present illness Narrative AMBULATORY [...] Department: GENERAL SURGERY documented in this encounter [facility] 08-22-2024 History of Present illness Narrative [...] PATIENT PRESENTS WITH AN IMPLANTABLE OR ATTACHED CHANNEL REBUILDER: No RADIOLOGY DEPARTMENT: General X-ray: Exam(s) Completed: Chest X-Ray PERIPHERAL IV DATA: Not applicable SIGNED BY: RT Juan(R) August 22, 2024 1:33 PM documented in this encounter [facility] 08-22-2024 Note [facility] 08-22-2024 Instructions Vito Duncan MD - 08/22/2024 11:57 AM EDT Images from the original note were not included. [facility] PATIENT PREOPERATIVE INSTRUCTIONS Jesus Jacobson MD has scheduled you for your procedure at this surgery center: [facility] Scheduling Office: [phone] --[address] [place] [address]. Please read below carefully for your personalized [...] not take the day of surgery Insulin Grassflat, Disposable, (BD ULTRAFINE III MINI PEN) 31 gauge x 3/16 Take the day of surgery with a small sip of water mioeda-xqdnbzwb-ambtayc (CREON 36) 36,000-114,000- 180,000 unit delayed release [...] Procedures: - YOU MUST HAVE A RESPONSIBLE SUPERVISORY IT SPECIALIST TAKE YOU HOME. A LACE ROLLER OR BOAT JOINER CANNOT BE MADE A RESPONSIBLE SUPERVISORY IT SPECIALIST. - We recommend that a responsible person [...] call the Sunday before. Your surgeon s africana studies professor will tell you what time to call the office. - If you have not reached the departmental africana studies professor by 5 P.M., call [phone] after 5 P.M. the day before your surgery. Please be aware that emergency situations arise, which may delay or change your surgical time. If this happens, we will notify you as soon as possible and regret any inconvenience. If you already have an Advance Directive, please fax a copy to [phone] or email to for it to be [...] Vito Duncan MD documented in this encounter [facility] 08-22-2024 History and physical note Images from the original note were not included. [facility] HISTORY AND PHYSICAL EXAMINATION SERVICE DATE: 08/22/2024 SERVICE TIME: 11:48 AM PRIMARY CARE PHYSICIAN: Eliana Springer, ECONOMICS ANALYST - PACKAGING SALES REPRESENTATIVE, ECONOMICS ANALYST.PACKAGING SALES REPRESENTATIVE Assessment Patient has the following medical conditions which may affect geronimo-operative course: Severe persistent asthma Eosinophilic asthma, with previous episodes of bronchitis and pneumonia. On Nucala injections and inhalers per immunology / pulmonology. Well controlled, no recent flares. 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[facility]) ([facility]) See 'severe persistent asthma'. No extrapulmonary manifestations. Dong's esophagus EGD 07/28/24 with Esophageal mucosal changes secondary to established long-segment Dong's disease. On omeprazole, asymptomatic. Type 2 diabetes mellitus ([facility]) Well controlled diabetes with A1C 6.1 01/2024. On insulin and metformin. Chronic pancreatitis ([facility]) history of acute recurrent pancreatitis of [...] equal to 35 kg/m^2 STOP-Bang Score: 2 [id number] Score: Diabetes history: Yes [id number] Score: ARISCAT Score: Age: 51-80 Preoperative SpO2: [...] (BAQSIMI) 3 mg/actuation nasal spray Use 1 [place] in the nose as needed. May repeat after 15 minutes using a new device if there is no response. Taking Yes glucose 4 gram chewable tablet Take 4 tablets by mouth as needed. Taking Yes Insulin Grassflat, Disposable, (BD ULTRAFINE III MINI PEN) 31 gauge x 3/16 Use with insulin 5 times daily Taking Yes mqiavy-vuwtnzhk-fqxijsq (CREON 36) 36,000-114,000- 180,000 unit delayed release [...] PRN, # 1 EA, 0 Refill(s), Pharmacy: [address] Taking Yes amitriptyline (ELAVIL) 50 mg tablet Take 1 tablet by mouth daily at bedtime. Taking Yes amLODIPine (NORVASC) 2.5 mg tablet Take 1 tablet by mouth once daily. Taking Yes atorvastatin (LIPITOR) 40 mg tablet Take 1 tablet by mouth once daily. Taking Yes azelastine 0.1% nasal spray Use 1 [place] in each nostril two times a day. [...] or any previous visit (from the past 43867 hour(s)). ECHO Order: [id number] Narrative Global left ventricular systolic function is [...] Nuclear stress test with myocardial perfusion Order: [id number] Narrative ECG: Resting ECG demonstrates normal sinus [...] Madison MD Date: 08/22/2024 Time: 12:42 PM [facility] 08-22-2024 History and physical note Images from the original note were not included. [facility] HISTORY AND PHYSICAL EXAMINATION SERVICE DATE: 08/22/2024 SERVICE TIME: 11:48 AM PRIMARY CARE PHYSICIAN: Elaina Springer, ECONOMICS ANALYST - PACKAGING SALES REPRESENTATIVE, ECONOMICS ANALYST.PACKAGING SALES REPRESENTATIVE Assessment Patient has the following medical conditions which may affect geronimo-operative course: Severe persistent asthma Eosinophilic asthma, with previous episodes of bronchitis and pneumonia. On Nucala injections and inhalers per immunology / pulmonology. Well controlled, no recent flares. 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[facility]) ([facility]) See 'severe persistent asthma'. No extrapulmonary manifestations. Dong's esophagus EGD 07/28/24 with Esophageal mucosal changes secondary to established long-segment Dong's disease. On omeprazole, asymptomatic. Type 2 diabetes mellitus ([facility]) Well controlled diabetes with A1C 6.1 01/2024. On insulin and metformin. Chronic pancreatitis ([facility]) history of acute recurrent pancreatitis of [...] equal to 35 kg/m^2 STOP-Bang Score: 2 [id number] Score: Diabetes history: Yes [id number] Score: ARISCAT Score: Age: 51-80 Preoperative SpO2: [...] (BAQSIMI) 3 mg/actuation nasal spray Use 1 [place] in the nose as needed. May repeat after 15 minutes using a new device if there is no response. Taking Yes glucose 4 gram chewable tablet Take 4 tablets by mouth as needed. Taking Yes Insulin Grassflat, Disposable, (BD ULTRAFINE III MINI PEN) 31 gauge x 3/16 Use with insulin 5 times daily Taking Yes lhccmd-ktpgtruy-nsimfmx (CREON 36) 36,000-114,000- 180,000 unit delayed release [...] PRN, # 1 EA, 0 Refill(s), Pharmacy: [address] Taking Yes amitriptyline (ELAVIL) 50 mg tablet Take 1 tablet by mouth daily at bedtime. Taking Yes amLODIPine (NORVASC) 2.5 mg tablet Take 1 tablet by mouth once daily. Taking Yes atorvastatin (LIPITOR) 40 mg tablet Take 1 tablet by mouth once daily. Taking Yes azelastine 0.1% nasal spray Use 1 [place] in each nostril two times a day. [...] or any previous visit (from the past 35285 hour(s)). ECHO Order: [id number] Narrative Global left ventricular systolic function is [...] Nuclear stress test with myocardial perfusion Order: [id number] Narrative ECG: Resting ECG demonstrates normal sinus [...] Time: 12:42 PM documented in this encounter [facility] 08-22-2024 Note [facility] 08-22-2024 History of Present illness Narrative REASON FOR CONSULTATION: Impending total pancreatectomy, type 2 diabetes Virtual visit August 22, 2024 I have communicated my name and active licensure. The patient's identity and physical location were verified at the time of this visit. Either the patient or their legal dealer compliance representative has been informed of the risks [...] Relion meter - just bought thi at [facility] Usually very well controlled Sometimes a bit of low blood sugar PMH: T2DM, IPMN PSH: NA Social History Tobacco Use Smoking status: Never Smokeless tobacco: Never Vaping Use Vaping status: Never Used Substance Use Topics Alcohol use: Not Currently Drug use: Never No family history on file. Current Outpatient Medications Medication Sig steqqj-dmdxxpwg-xnjsavn (CREON 36) 36,000-114,000- 180,000 unit delayed release [...] PRN, # 1 EA, 0 Refill(s), Pharmacy: [address] amitriptyline (ELAVIL) 50 mg tablet Take 1 tablet by mouth daily at bedtime. amLODIPine (NORVASC) 2.5 mg tablet Take 1 tablet by mouth once daily. atorvastatin (LIPITOR) 40 mg tablet Take 1 tablet by mouth once daily. azelastine 0.1% nasal spray Use 1 [place] in each nostril two times a day. [...] for this visit. ALLERGIES Allergen Reactions Codeine Hives Zofran [Ondansetron] Hives REVIEW OF SYSTEMS Answers submitted by the 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 to brick picker to be ready after procedure - I asked him to start working on carb counting (he is already familiar with nutrition labels since he has been avoiding fat for IPMN) - will need cpeptide and glucose in hospital after procedure for the pump See back post procedure 2-3 weeks Kathy Bravo MD August 22, 2024 documented in this encounter [facility] 08-19-2024 Note [facility] 08-11-2024 Hospital Discharge instructions Richard Mcgarry APRN - CNP - 08/11/2024 2:48 PM EDT Can continue use of incentive spirometer Continue home medication [place] 5 mg / 325 mg 1 by mouth every 8 hours x 3 days as needed for moderate-severe pain. Do not drive with this medication The following attachments cannot be sent through Care Everywhere.Chest Contusion (Mongolian)Rib Contusion (Mongolian)Chest Pain: Musculoskeletal (Mongolian)documented in this encounter [facility] 08-08-2024 Hospital Discharge instructions Richard Mcgarry APRN - CNP - 08/08/2024 2:08 PM EDT Arnicare Gel OTC at [facility] 4 times daily with ice to [...] be sent through Care Everywhere.Chest Pain: Musculoskeletal (Mongolian)Chest Contusion (Mongolian)Rib Contusion (Mongolian)documented in this encounter [facility] 08-08-2024 Telephone encounter Note Updated patient that we are waiting an update from Dr. Jacobson if I can schedule surgery and once confirmed I will let patient know and schedule [facility] Work Phone: 08-08-2024 Miscellaneous Notes Updated patient that we are waiting an update from Dr. Jacobson if I can schedule surgery and once confirmed I will let patient know and schedule Pt is calling to check status of upcoming Pancreas Surgery date. Contact info: [phone] documented in this encounter [facility] 08-08-2024 Telephone encounter Note Pt is calling to check status of upcoming Pancreas Surgery date. Contact info: [phone] [facility] 08-05-2024 Hospital Discharge instructions Joycelyn Smith MD - 08/05/2024 9:20 PM EDT Continue current medications as prescribed. He must follow-up with [facility] as soon as possible. Please return immediately should he develop any worsening symptoms or any acute concerns The following attachments cannot be sent through Care Everywhere.Pancreatitis (Mongolian)documented in this encounter [facility] 08-05-2024 Telephone encounter Note Patient called and is having black tarry stool. Advised him to be worked up by PCP or GI doctor for labs and stool test Calling Julia to confirm medications. [facility] Work Phone: 08-05-2024 Miscellaneous Notes Patient called and is having black tarry stool. Advised him to be worked up by PCP or GI doctor for labs and stool test Calling List to confirm medications. documented in this encounter [facility] 08-04-2024 Telephone encounter Note Updated patient on increasing creon. I also stated to patient that we will send script and that I am still waiting on response from dr. Jacobson if next steps are surgery [facility] Work Phone: 08-04-2024 Miscellaneous Notes Updated [...] him a call. documented in this encounter [facility] 07-30-2024 Telephone encounter Note I returned [...] over a new script to his pharmacy. [facility] Work Phone: 07-30-2024 Telephone encounter Note Pt has called another doctors office complaining that he is not getting a response from our office about his creon medication. Please give patient a call back soon. [facility] 07-30-2024 Telephone encounter Note Pt is calling because he wants results of his test and also wants to talk about creon. Please give him a call. [facility] 07-28-2024 Nurse Note AMBULATORY PATIENT EDUCATION [...] MATERIAL: Procedure Discharge Instructions REFERRAL (RECOMMENDATION): None [facility] 07-28-2024 Nurse Note AMBULATORY PATIENT EDUCATION [...] In Department: GASTROENTEROLOGY documented in this encounter [facility] 07-28-2024 Note Q3 Patient Name: Thomas Petty Procedure Date: 07/28/2024 7:14 AM Date of : 1970 Admit Type: Outpatient Age: 53 Gender: Male Note Status: Finalized Attending MD: Sheyla Mensah MD, [id number] Procedure: Upper EUS Indications: Intraductal papillary mucinous neoplasm (IPMN) Providers: Sheyla Mensah MD Referring Physician: Alessandro Jacobson MD (Referring MD) Medicines: General Anesthesia [...] present medications. Procedure Code(s): --- Professional --- 01652 Diagnosis Code(s): --- Professional --- K44.9 K22.70 D49.0 R93.3 CPT copyright 2020 [employer]. All rights reserved. Attending Participation: I personally performed the entire procedure. Scope In: 8:02:59 AM Scope Out: 8:15:[address] MD Sheyla Perez MD 07/28/2024 8:35:41 AM This report has [...] By: Haris Neal RN In Department: GASTROENTEROLOGY [facility] 07-24-2024 Telephone encounter Note Left VM for patient that stool test low and adjustment to creon would be needed. Working with [facility] to schedule EUS w/ Dr. Mensah [facility] 07-24-2024 Miscellaneous Notes Left VM for patient that stool test low and adjustment to creon would be needed. Working with [facility] to schedule EUS w/ Dr. Mensah documented in this encounter [facility] 07-22-2024 History of Present illness Narrative Consultation requested by for an opinion regarding Thomas Petty, who presents today for IPMN. My final recommendations will be communicated back to the requesting physician by way of shared Medical record or letter to requesting physician via US mail. [facility] STAFF PHYSICIAN NOTE OF PERSONAL [...] 2:59 PM 07/22/2024 documented in this encounter [facility] 07-21-2024 Telephone encounter Note Spoke with patient, he had the EUS done at [facility], they are going to fax us a copy, however we do have the copy in [facility]. Discussed with patient we just have the CT scan from 05/23 in system. [facility] been [facility] Work Phone: 07-21-2024 Miscellaneous Notes Spoke with patient, he had the EUS done at [facility], they are going to fax us a copy, however we do have the copy in [facility]. Discussed with patient we just have the CT scan from 05/23 in system. [facility] additional imaging [facility] been sent Pt is calling because he is unable to get imaging from [facility]/26/24 wants to know what to do. documented in this encounter [facility] 07-21-2024 Telephone encounter Note Pt is calling because he is unable to get imaging from [facility] on 06/26/24 wants to know what to do. [facility] 07-17-2024 Telephone encounter Note Medical records and imaging request faxed to the following facilities: [facility]. Aponte [facility] / [phone] [facility] 07-17-2024 Miscellaneous Notes Medical records and imaging request faxed to the following facilities: Dr. Aponte [facility] / [phone] documented in this encounter [facility] 07-17-2024 Telephone encounter Note Yamini from [employer] was calling for clarification on what records need to be sent over. [phone] [facility] 07-17-2024 Miscellaneous Notes Yamini from [employer] was calling for clarification on what records need to be sent over. [phone] documented in this encounter [facility] 07-17-2024 Telephone encounter Note Faxed request for EGD with EUS to Endoscopy at [facility] [phone]. Left message with radiology at [facility] for CT images to be sent electronically. [facility] 07-17-2024 Miscellaneous Notes Faxed request for EGD with EUS to Endoscopy at [facility] [phone]. Left message with radiology at [facility] for CT images to be sent electronically. documented in this encounter [facility] 07-08-2024 Note 07/11/24 Spoke with Eva garcia from [facility] with Dr. Davies and they will be taking care of sending a referral to [facility] for a Pancreatic/Biliary Surgeon for this [...] and I have spoken with the patient. [facility] 06-26-2024 Note Patient: Thomas Petty Procedure Summary Date: 06/26/24 Room / Location: [facility] [facility] Anesthesia Start: 1545 Anesthesia Stop: 1655 [...] per anesthesia protocol. No notable events documented. [facility] 06-26-2024 Note Patient: Thomas Petty Procedure Summary Date: 06/26/24 Room / Location: [facility] Endoscopy Anesthesia Start: 1545 Anesthesia Stop: Procedures: ENDOSCOPIC ULTRASOUND (UPPER) EGD Diagnosis: Pancreatic cyst Abnormal CT of the abdomen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 Postlaminectomy syndrome, lumbar region documented in this encounter [facility] note* Diagnosis Thoracic spondylosis without myelopathy- Primary Thoracic spondylosis without myelopathy- Primary Postlaminectomy syndrome, lumbar region Lumbosacral spondylosis without myelopathy Thoracic spondylosis without myelopathy [facility] Diagnosis Thoracic spondylosis without myelopathy- Primary Postlaminectomy syndrome, lumbar region Encounter for long-term opiate analgesic use Encounter for long-term (current) use of other medications [facility] Diagnosis Thoracic spondylosis without myelopathy- Primary Postlaminectomy syndrome, lumbar region Encounter for long-term opiate analgesic use Encounter for long-term (current) use of other medications [facility] Diagnosis IPMN (intraductal papillary mucinous neoplasm)- Primary Neoplasm of unspecified nature of digestive system IPMN (intraductal papillary mucinous neoplasm) Neoplasm of unspecified nature of digestive system 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 Acute postoperative pain Other acute [...] Obesity, unspecified 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 DM type 1 (diabetes mellitus, type 1) ([facility]) Type I (juvenile type) diabetes mellitus without mention of complication, not stated as uncontrolled Bipolar 1 disorder ([facility]) Bipolar I disorder, most recent episode (or current) unspecified 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[facility]) ([facility]) Posttraumatic stress disorder Acute postoperative respiratory insufficiency [...] of digestive system [facility]* Diagnosis Dysuria Vomiting and diarrhea Vomiting alone documented in this encounter [facility] note* Diagnosis IPMN (intraductal papillary mucinous neoplasm)- [...] of digestive system documented in this encounter [facility] note* Diagnosis IPMN (intraductal papillary mucinous [...] of digestive system [facility] Diagnosis IPMN (intraductal papillary mucinous neoplasm)- [...] Insulin pump status [facility] Diagnosis Influenza A Influenza with other respiratory manifestations Chest tightness Other chest pain [facility] Diagnosis IPMN (intraductal papillary mucinous neoplasm)- [...] of digestive system [facility]* Diagnosis IPMN (intraductal papillary mucinous neoplasm)- [...] of digestive system [facility] Diagnosis IPMN (intraductal papillary mucinous neoplasm)- [...] of Dong's esophagus [facility] Diagnosis Left lower quadrant abdominal pain History of diverticulitis [facility] Diagnosis IPMN (intraductal papillary mucinous neoplasm)- [...] (HCC) Postsurgical hypoinsulinemia [facility]* Diagnosis Left lower quadrant abdominal pain History of diverticulitis documented in this encounter [facility] note* Diagnosis Contusion of finger of left hand, unspecified finger, initial encounter- Primary documented in this encounter [facility] note* Diagnosis IPMN (intraductal papillary mucinous neoplasm)- [...] Insulin pump status [facility] Diagnosis BPH with obstruction/lower urinary tract symptoms Hypertrophy of prostate with urinary obstruction and other lower urinary tract symptoms (LUTS) Incomplete bladder emptying documented in this encounter [facility] note* Diagnosis Acute pneumonia- Primary Right flank pain Abdominal pain, unspecified site Pneumonia of right lower lobe due to infectious organism RACQUEL (acute kidney injury) Acute kidney failure, unspecified Acute pneumonia Type 1 diabetes mellitus (HCC) Type I (juvenile type) diabetes mellitus without mention of complication, not stated as uncontrolled Bipolar 1 disorder ([facility]) Bipolar I disorder, most recent episode (or current) unspecified RUQ pain Abdominal pain, right upper quadrant History of pancreatic cancer Personal history of malignant neoplasm of other site in gastrointestinal tract H/O Whipple procedure Right flank pain Abdominal pain, unspecified site documented in this encounter [facility] note* Diagnosis Medical clearance for psychiatric admission- Primary Depression with suicidal ideation PTSD (post-traumatic stress disorder) Posttraumatic stress disorder documented in this encounter [facility] note* Diagnosis Pneumonia of right middle lobe due to infectious organism- Primary Nausea vomiting and diarrhea Nausea with vomiting documented in this encounter [facility] note* Diagnosis IPMN (intraductal papillary mucinous neoplasm)- Primary Neoplasm of unspecified nature of digestive system IPMN (intraductal papillary mucinous neoplasm) Neoplasm of unspecified nature of digestive system 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 Acute postoperative pain Other acute [...] Obesity, unspecified 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 DM type 1 (diabetes mellitus, type 1) ([facility]) Type I (juvenile type) diabetes mellitus without mention of complication, not stated as uncontrolled Bipolar 1 disorder (HCC) Bipolar I disorder, most recent episode (or current) unspecified 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[facility]) Posttraumatic stress disorder Acute postoperative respiratory insufficiency Other pulmonary insufficiency, not elsewhere classified, following trauma and surgery Insulin dose changed ([facility]) Primary hypertension Unspecified essential hypertension Severe persistent asthma, unspecified whether complicated (HCC)- Primary 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 Dong's esophagus Other chronic pancreatitis (HCC) Fatty liver Other chronic nonalcoholic liver disease History of bowel resection Preoperative examination Preoperative examination, unspecified 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 documented in this encounter [facility] note* Diagnosis IPMN (intraductal papillary mucinous [...] Insulin pump status documented in this encounter [facility] note* Diagnosis BPH with obstruction/lower urinary tract symptoms- Primary Hypertrophy of prostate with urinary obstruction and other lower urinary tract symptoms (LUTS) Dysuria BPH with obstruction/lower urinary tract symptoms Hypertrophy of prostate with urinary obstruction and other lower urinary tract symptoms (LUTS) [facility] Diagnosis Melanocytic nevus of trunk- Primary Benign neoplasm of skin of trunk, except scrotum 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 [facility] No data available for this section [facility] InstructionsNot on filedocumented in this encounter [facility] [...] this section [facility] reason for referral (narrative)* Outpatient Procedure (Routine) - New Request Specialty Diagnoses / Procedures Referred By Kwabena gray Referred To Contact [facility] Diagnoses Cyst and pseudocyst of pancreas Procedures EGD - THERAPEUTIC, EUS, OR TUBE INTERVENTIONS EGD INTRMURAL US NEEDLE ASPIRATE/[place] [address] [place] [address] [facility] [address] [place] [address] Referral ID Status Reason Start Date Expiration Date Visits Requested Visits Authorized [id number] New Request Auto-Generat ed Referral 07/22/2024 07/22/2025 [address] [facility] for referral (narrative)* Outpatient Procedure (Routine) - Closed Specialty Diagnoses / Procedures Referred By Kwabena gray Referred To Contact [facility] Diagnoses Cyst and pseudocyst of pancreas Procedures EGD - THERAPEUTIC, EUS, OR TUBE INTERVENTIONS EGD INTRMURAL US NEEDLE ASPIRATE/BIOPSY ESOPHAGS Jesus Jacobson MD [address] [place], [place] [id number] [address] [address] Referral ID Status Reason Start Date Expiration Date V isits Requested Visits Authorized [id number] Closed Auto-Generate d Referral 07/24/2024 10/21/2024 [address] [facility] for visit Narrative* Outpatient Procedure (Routine) - Closed Specialty Diagnoses / Procedures [facility] Referred To Contact [facility] Diagnoses Cyst and pseudocyst of pancreas Procedures EGD - THERAPEUTIC, EUS, OR TUBE INTERVENTIONS EGD INTRMURAL US NEEDLE ASPIRATE/BIOPSY ESOPHAGS Jesus Jacobson MD [address] [place], [place] [id number] [place] [id number] Referral ID Status Reason Start Date Expiration Date V isits Requested Visits Authorized [id number] Closed Auto-Generate d Referral 07/24/2024 10/21/2024 [address] [facility] for visit Narrative* Outpatient Procedure (Routine) - Closed Specialty Diagnoses / Procedures [facility] Referred To Contact [facility] Diagnoses IPMN (intraductal papillary mucinous neoplasm) Procedures EGD DIAGNOSTIC ESOPHAGOGASTRODUODENOSC OPY TRANSORAL DIAGNOSTIC Jesus Jacobson MD [address] [place], [place] [id number] Phone: tel: fax: [address] [address] Referral ID Status Reason Start Date Expiration Date V isits Requested Visits Authorized [id number] Closed Auto-Generate d Referral 01/05/2025 04/05/2025 [address] [facility] for visit Narrative* Outpatient Procedure (Routine) - Closed Specialty Diagnoses / Procedures [facility] Referred To Contact [facility] Diagnoses IPMN (intraductal papillary mucinous neoplasm) Procedures EGD DIAGNOSTIC ESOPHAGOGASTRODUODENOSCOPY [place] [address] [place] [address] Phone: tel: fax: Gastroenterology [address] [place] [address] Phone: tel: Referral ID Status Reason Start Date Expiration Date V isits Requested Visits Authorized [id number] Closed Auto-Generate d Referral 01/23/2025 04/23/2025 [address] [facility] for visit Narrative* Imaging (Routine) - Closed Specialty Diagnoses / Procedures Referred By Kwabena gray Referred To Contact Radiology Diagnoses Left lower quadrant abdominal pain History of diverticulitis Procedures CT ABDOMEN PELVIS W IV CONTRAST Additional Contrast? Radiologist Recommendation Eliana Springer, ECONOMICS ANALYST - PACKAGING SALES REPRESENTATIVE [address] [place] [address] Phone: tel: fax: Referral ID Status Reason Start Date Expiration Date Visits Re quested Visits Authorized [id number] Closed 02/16/2025 02/16/2026 1 1 [facility] Summary Purpose Family History No Family [...] Communication Genoveva Herrerabrook Spouse Primary Decision Maker [email or web address] Latest Code Status on File Code Status Date Activated Date Inactivated Comments Full Code 05/19/2023 12:25 AM 05/22/2023 7:29 PM Healthcare Agents on File Name Relationship Healthcare Agent Relationship Communication January Upsala Spouse Primary Decision Maker Latest Code Status on File Code Status Date Activated Date Inactivated Comments Full Code 05/19/2023 12:25 AM 05/22/2023 7:29 PM Healthcare Agents on File Name Relationship Healthcare Agent Relationship Communication January Upsala Spouse Primary Decision Maker Healthcare Agents on File Name Relationship Healthcare Agent Relationship Communication January Upsala Spouse Primary Decision Maker Latest Code Status on File Code Status Date Activated Date Inactivated Comments Full Code 02/07/2024 1:19 PM 02/08/2024 4:10 PM Code Status History Code Status Date Activated Date Inactivated Comments Full Code 05/19/2023 12:25 AM 05/22/2023 7:29 PM Healthcare Agents on File Name Relationship Healthcare Agent Relationship Communication January Upsala Spouse Primary Decision Maker [email or web address] Healthcare Agents on File Name Relationship Healthcare Agent Relationship Communication January Upsala Spouse Primary Decision Maker [email or web address] Latest Code Status on File Code Status Date Activated Date Inactivated Comments Full Code 02/07/2024 1:19 PM 02/08/2024 4:10 PM Code Status History Code Status Date Activated Date Inactivated Comments Full Code 05/19/2023 12:25 AM 05/22/2023 7:29 PM Healthcare Agents on File Name Relationship Healthcare Agent Relationship Communication January Upsala Spouse Primary Decision Maker [email or web address] Healthcare Agents on File Name Relationship Healthcare Agent Relationship Communication January Upsala Spouse Primary Decision Maker @[email or web address] Date Activated Date Inactivated Comments 02/07/2024 1:19 PM 02/08/2024 4:10 PM Date Activated Date Inactivated Comments 05/19/2023 12:25 AM 05/22/2023 7:29 PM Healthcare Agents on File Name Relationship Healthcare Agent Relationship Communication January Upsala Spouse Primary Decision Maker [facility] Healthcare Agents on File Name Relationship Healthcare Agent Relationship Communication January Upsala Spouse Primary Decision Maker [facility] Healthcare Agents on File Name Relationship Healthcare Agent Relationship Communication January Upsala Spouse Primary Decision Maker [facility] Healthcare Agents on File Name Relationship Healthcare Agent Relationship Communication January Upsala Spouse Primary Decision Maker [facility] Healthcare Agents on File Name Relationship Healthcare Agent Relationship Communication January Upsala Spouse Primary Decision Maker [facility] Healthcare Agents on File Name Relationship Healthcare Agent Relationship Communication January Upsala Spouse Primary Decision Maker [facility] Healthcare Agents on File Name Relationship Healthcare Agent Relationship Communication January Upsala Spouse Primary Decision Maker [facility] Date Activated Date Inactivated Comments 05/24/2024 4:44 AM Date Activated Date Inactivated Comments 05/24/2024 4:44 AM 05/24/2024 7:04 PM Healthcare Agents on File Name Relationship Healthcare Agent Relationship Communication January Upsala Spouse Primary Decision Maker [facility] Healthcare Agents on File Name Relationship Healthcare Agent Relationship Communication January Upsala Spouse Primary Decision Maker [facility] Date Activated Date Inactivated Comments 02/07/2024 1:19 PM 02/08/2024 4:10 PM Date Activated Date Inactivated Comments 05/19/2023 12:25 AM 05/22/2023 7:29 PM Healthcare Agents on File Name Relationship Healthcare Agent Relationship Communication Genoveva Upsala Spouse Primary Decision Maker [email or web address] Healthcare Agents on File Name Relationship Healthcare Agent Relationship Communication Genoveva Upsala Spouse Primary Decision Maker [email or web address] Date Activated Date Inactivated Comments 05/26/2025 12:16 AM Healthcare Agents on File Name Relationship Healthcare Agent Relationship Communication Genoveva Upsala Spouse Primary Decision Maker [email or web address] Date Activated Date Inactivated Comments 05/31/2025 12:47 AM 06/03/2025 4:52 PM Date Activated Date Inactivated Comments 05/26/2025 12:16 AM 05/27/2025 3:00 PM Date Activated Date Inactivated Comments 02/07/2024 1:19 PM 02/08/2024 4:10 PM Date Activated Date Inactivated Comments 05/19/2023 12:25 AM 05/22/2023 7:29 PM Healthcare Agents on File Name Relationship Healthcare Agent Relationship Communication [facility] Child Primary Decision Maker Healthcare Agents on File Name Relationship Healthcare Agent Relationship Communication [facility] Child Primary Decision Maker Reason for Referral Specialty Diagnoses / Procedures Referred By Contac t Referred To Contact Radiology Diagnoses Preop cardiovascular exam Primary hypertension Mixed hyperlipidemia Intermittent chest pain Procedures Nuclear stress test with myocardial perfusion Uli Strong MD [address] [place] [id number] Referral ID Status Reason Start Date Expiration Date Visits Re quested Visits Authorized [id number] Closed 06/29/2023 06/28/2024 3 3 Specialty Diagnoses / Procedures Referred By Contac t Referred To Contact Radiology Diagnoses Cervical spinal stenosis Procedures CT CERVICAL SPINE W CONTRAST Danica Conklin MD [address] [place] [address] Referral ID Status Reason Start Date Expiration Date Visits Re quested Visits Authorized [id number] Closed 04/17/2024 04/17/2025 1 1 Specialty Diagnoses / Procedures Referred By Bjac t Referred To Contact Diagnoses IPMN (intraductal papillary mucinous neoplasm) Preoperative examination Procedures REFER TO [facility] - PREOPERATIVE OPTIMIZATION OFFICE/OUTPATIENT NEW HIGH MDM 60 MINUTES Jesus Jacobson MD [address] [place], [place] [id number] Referral ID Status Reason Start Date Expiration Date Visits Requested Visits Authorized [id number] Authorized PCP Requested Referral 4 08/14/2025 1 1 Specialty Diagnoses / Procedures Referred By Bjac t Referred To Contact [facility] Diagnoses IPMN (intraductal papillary mucinous neoplasm) Preoperative examination Procedures ECG COMPLETE ECG ROUTINE ECG W/LEAST 12 LDS W/I&R Jesus Jacobson MD [address] [place] [address] [facility] [address] [place] [address] Referral ID Status Reason Start Date Expiration Date Visits Requested Visits Authorized [id number] New Request Auto-Generat ed Referral 4 08/14/2025 1 1 Specialty Diagnoses / Procedures Referred By Bjac t Referred To Contact Diagnoses IPMN (intraductal papillary mucinous neoplasm) Preoperative examination Procedures CONSULT TO [facility] MEDICINE OFFICE/OUTPATIENT NEW HIGH MDM 60 MINUTES Jesus Jacobson MD [address] [place], [place] [id number] Referral ID Status Reason Start Date Expiration Date Visits Requested Visits Authorized [id number] Authorized PCP Requested Referral 4 08/14/2025 1 1 Specialty Diagnoses / Procedures Referred By Contac t Referred To Contact Pain Management Diagnoses IPMN (intraductal papillary mucinous neoplasm) Preoperative examination Procedures CONSULT TO PAIN MGT OFFICE/OUTPATIENT NEW HIGH MDM 60 MINUTES Jesus Jacobson MD [address] [place] [address] Referral ID Status Reason Start Date Expiration Date Visits Requested Visits Authorized [id number] Authorized PCP Requested Referral 08/14/2025 1 1 Specialty Diagnoses / Procedures Referred By Contac t Referred To Contact Diagnoses Thoracic spondylosis Procedures Case request operating room: #2 Bilateral Thoracic Medial Branch block T7-8 and T8-9 Slime Romano, ECONOMICS ANALYST-PACKAGING SALES REPRESENTATIVE [address] [facility] [address] [place] [address] Referral ID Status Reason Start Date Expiration Date V isits Requested Visits Authorized [id number] Pending Review 10/24/2023 10/23/2024 1 1 Specialty Diagnoses / Procedures Referred By Contac t Referred To Contact Rehabilitation Diagnoses Cervical radiculitis Joana Stratton MD [address] [place] [address] Referral ID Status Reason Start Date Expiration Date Visits Requested Visits Authorized [id number] Pending Review Specialty Services Required 02/25/2024 08/27/2024 1 1 Scheduling Instructions PT 3 times a week for 6 weeks. Specialty Diagnoses / Procedures Referred By Contac t Referred To Contact Diagnoses Thoracic spondylosis without myelopathy Procedures Case request operating room: #2 Bilateral Thoracic Medial Branch Block T7-8 and T8-9 Joana Stratton MD [address] [place] [address] Referral ID Status Reason Start Date Expiration Date V isits Requested Visits Authorized [id number] Pending Review 11/06/2023 11/05/2024 1 1 Specialty Diagnoses / Procedures Referred By Contac t Referred To Contact Rehabilitation Diagnoses Lumbosacral spondylosis without myelopathy Slime Romano, ECONOMICS ANALYST-PACKAGING SALES REPRESENTATIVE [address] [facility] [address] [place] [address] [facility] [address] [place] [address] Referral ID Status Reason Start Date Expiration Date Visits Requested Visits Authorized [id number] Authorized Specialty Services Required 11/21/2023 11/20/2024 1 1 Specialty Diagnoses / Procedures Referred By Contac t Referred To Contact Rehabilitation Diagnoses Thoracic spondylosis without myelopathy Joana Stratton MD [address] [place] [address] Referral ID Status Reason Start Date Expiration Date Visits Requested Visits Authorized [id number] Pending Review Specialty Services Required 12/24/2023 12/23/2024 1 1 Specialty Diagnoses / Procedures Referred By Contac t Referred To Contact Diagnoses Postlaminectomy syndrome, lumbar region Encounter for long-term opiate analgesic use Thoracic spondylosis without myelopathy Procedures Case request operating room: Bilateral thoracic Radiofrequency ablation T7-8 and T8-9 Joana Stratton MD [address] [place] [address] Referral ID Status Reason Start Date Expiration Date V isits Requested Visits Authorized [id number] Pending Review 12/24/2023 12/23/2024 1 1 Additional Source Comments (unrecognized sect ion and content) No Status Records FoundNo Status Records FoundNo Status Records FoundNo Status Records FoundNo Status Records FoundNo Status Records FoundNo Status Records FoundNo Status Records FoundNo Status Records FoundNo Status Records FoundNo Status Records FoundNo Status Records Found INFORMATION SOURCE (unrecogn ized section and content) DATE CREATED AUTHOR 09/27/2020 [facility] ical Center DATE CREATED AUTHOR AUTHOR'S ORGANIZ ATION 04/04/2024 [facility] DATE CREATED AUTHOR AUTHOR'S ORGANIZ ATION 05/26/2024 [facility] DATE CREATED AUTHOR AUTHOR'S ORGANIZ ATION 05/31/2024 [facility] DATE CREATED AUTHOR AUTHOR'S ORGANIZ ATION 07/03/2024 [facility] ical Center DATE CREATED AUTHOR AUTHOR'S ORGANIZ ATION 07/13/2024 [facility] DATE CREATED AUTHOR AUTHOR'S ORGANIZ ATION 04/16/2025 [facility] DATE CREATED AUTHOR AUTHOR'S ORGANIZ ATION 05/01/2025 [facility] DATE CREATED AUTHOR AUTHOR'S ORGANIZ ATION 06/03/2025 [facility] DATE CREATED AUTHOR AUTHOR'S ORGANIZ ATION 08/04/2025 [facility] DATE CREATED AUTHOR AUTHOR'S ORGANIZ ATION 08/05/2025 [facility] DATE CREATED AUTHOR AUTHOR'S ORGANIZ ATION 08/09/2025 [facility] Special[facility] EPIC Care Teams (unrecognized sec tion and content) Launderer Hand Relationship Specialty Start Date End Date Eliana Springer APRN - PACKAGING SALES REPRESENTATIVE [address] [place] [address] PCP - General Certified Nurse Practitioner 04/23/23 Launderer Hand Relationship Specialty Start Date End Date Eliana Springer APRN - PACKAGING SALES REPRESENTATIVE [address] [place] [address] PCP - General Certified Nurse Practitioner 04/23/23 Launderer Hand Relationship Specialty Start Date End Date Eliana Springer ECONOMICS ANALYST - PACKAGING SALES REPRESENTATIVE [address] [facility] [place] [address] PCP - General Certified Nurse Practitioner 04/23/23 Launderer Hand Relationship Specialty Start Date End Date Eliana Springer APRN - PACKAGING SALES REPRESENTATIVE [address] [facility] [place] [address] PCP - General Certified Nurse Practitioner 04/23/23 Launderer Hand Relationship Specialty Start Date End Date Eliana Springer APRN - PACKAGING SALES REPRESENTATIVE [address] [facility] [place] [address] PCP - General Certified Nurse Practitioner 04/23/23 Launderer Hand Relationship Specialty Start Date End Date Eilana Springer ECONOMICS ANALYST - PACKAGING SALES REPRESENTATIVE [address] [facility] [place] [address] PCP - General Certified Nurse Practitioner 04/23/23 Launderer Hand Relationship Specialty Start Date End Date Gian Eliana Palomo ECONOMICS ANALYST - PACKAGING SALES REPRESENTATIVE [address] [facility] [place] [address] PCP - General Certified Nurse Practitioner 04/23/23 Launderer Hand Relationship Specialty Start Date End Date Gian Eliana Palomo ECONOMICS ANALYST - PACKAGING SALES REPRESENTATIVE [address] [facility] [place] [address] PCP - General Certified Nurse Practitioner 04/23/23 Launderer Hand Relationship Specialty Start Date End Date Gian Eliana Palomo ECONOMICS ANALYST - PACKAGING SALES REPRESENTATIVE [address] [facility] [place] [address] PCP - General Certified Nurse Practitioner 04/23/23 Launderer Hand Relationship Specialty Start Date End Date Wesly Davies MD [address] [place] [address] Referring Gastroenterology 07/16/24 Launderer Hand Relationship Specialty Start Date End Date Wesly Davies MD [address] [place] [address] Referring Gastroenterology 07/16/24 Launderer Hand Relationship Specialty Start Date End Date Wesly Davies MD [address] [place] [address] Referring Gastroenterology 07/16/24 Launderer Hand Relationship Specialty Start Date End Date Wesly Davies MD [address] [place] [address] Referring Gastroenterology 07/16/24 Launderer Hand Relationship Specialty Start Date End Date Wesly Davies MD [address] [place], [place] [id number] Referring Gastroenterology 07/16/24 Launderer Hand Relationship Specialty Start Date End Date Wesly Davies MD [address] [facility] [place] [id number] Referring Gastroenterology 07/16/24 Launderer Hand Relationship Specialty Start Date End Date Wesyl Davies MD [address] [facility] [address] [place], [place] 4488140 Referring Gastroenterology 07/16/24 Wesly Davies MD [address] [place], [place] 0679640 Referring Gastroenterology 07/25/24 Launderer Hand Relationship Specialty Start Date End Date Wesly Davies MD [address] [facility] [place] [id number] Referring Gastroenterology 07/16/24 Wesly Davies MD [address] [place], [place] 0865240 Referring Gastroenterology 07/25/24 Launderer Hand Relationship Specialty Start Date End Date Wesly Davies MD [address] [place], [place] [id number] Referring Gastroenterology 07/16/24 Wesly Davies MD [address] [place], [place] 0279640 Referring Gastroenterology 07/25/24 Launderer Hand Relationship Specialty Start Date End Date Wesly Davies MD [address] [place], [place] [id number] Referring Gastroenterology 07/16/24 Wesly Davies MD [address] [place], [place] 6508740 Referring Gastroenterology 07/25/24 Launderer Hand Relationship Specialty Start Date End Date Eliana Springer, ECONOMICS ANALYST - PACKAGING SALES REPRESENTATIVE [address] [place] [address] PCP - General Certified Nurse Practitioner 04/23/23 Launderer Hand Relationship Specialty Start Date End Date Wesly Davies MD [address] [place], [place] [id number] Referring Gastroenterology 07/16/24 Wesly Davies MD [address] [place] [address] Referring Gastroenterology 07/25/24 Launderer Hand Relationship Specialty Start Date End Date Wesly Davies MD [address] [place], [place] [id number] Referring Gastroenterology 07/16/24 Wesly Davies MD [address] [place] [address] Referring Gastroenterology 07/25/24 Launderer Hand Relationship Specialty Start Date End Date Wesly Davies MD [address] [place] [address] Referring Gastroenterology 07/16/24 Wesly Davies MD [address] [place], [place] 8900240 Referring Gastroenterology 07/25/24 Launderer Hand Relationship Specialty Start Date End Date Eliana Springer, ECONOMICS ANALYST.PACKAGING SALES REPRESENTATIVE [address] [facility], [place] 348[address]83 PCP - General Family Medicine 08/15/24 Wesly Davies MD [address] [facility] [address] [place], [place] 515[address]40 Referring Gastroenterology 07/16/24 Wesly Davies MD [address] [facility] [place] [address]27[address]40 Referring Gastroenterology 07/25/24 Launderer Hand Relationship Specialty Start Date End Date Eliana Springer, ECONOMICS ANALYST.PACKAGING SALES REPRESENTATIVE [address] [facility] [place] [address] PCP - General Family Medicine 08/15/24 Wesly Davies MD [address] [facility] [place] 1408540 Referring Gastroenterology 07/16/24 Wesly Davies MD [address] [place] [address] Referring Gastroenterology 07/25/24 Launderer Hand Relationship Specialty Start Date End Date Eliana Springer, ECONOMICS ANALYST.PACKAGING SALES REPRESENTATIVE [address] [facility] [place] [address] PCP - General Family Medicine 08/15/24 Wesly Davies MD [address] [place] [address] Referring Gastroenterology 07/16/24 Wesly Davies MD [address] [place], [place] [id number] Referring Gastroenterology 07/25/24 Launderer Hand Relationship Specialty Start Date End Date Eliana Springer APRN.PACKAGING SALES REPRESENTATIVE [address] [place] [address] PCP - General Family Medicine 08/15/24 Wesly Davies MD [address] [facility] [place] [address] [place] [address] Referring Gastroenterology 07/16/24 Wesly Davies MD [address] [facility] [place] [address] [place] [address] Referring Gastroenterology 07/25/24 Launderer Hand Relationship Specialty Start Date End Date Eliana Springer, ECONOMICS ANALYST.PACKAGING SALES REPRESENTATIVE [address] [place] [address] PCP - General Family Medicine 08/15/24 Wesly Davies MD [address] [facility] [place] [place] [address] [place] [address] Referring Gastroenterology 07/16/24 Wesly Davies MD [facility] [facility] [place] [place] [address] [place] [address] Referring Gastroenterology 07/25/24 Launderer Hand Relationship Specialty Start Date End Date Eliana Springer ECONOMICS ANALYST.PACKAGING SALES REPRESENTATIVE [address] [place] [address] PCP - General Family Medicine 08/15/24 Wesly Davies MD [address] [facility] [place] [phone] Referring Gastroenterology 07/16/24 Wesly Davies MD [address] [place], [place] 4608140 Referring Gastroenterology 07/25/24 Launderer Hand Relationship Specialty Start Date End Date Eliana Springer APRN.PACKAGING SALES REPRESENTATIVE [address] [place], [place] 1229683 PCP - General Family Medicine 08/15/24 Wesly Davies MD [address] [place], [place] 9652240 Referring Gastroenterology 07/16/24 Wesly Davies MD [address] [place] [address] Referring Gastroenterology 07/25/24 Launderer Hand Relationship Specialty Start Date End Date Eliana Springer APRN.PACKAGING SALES REPRESENTATIVE [address] [place], [place] 8755983 PCP - General Family Medicine 08/15/24 Wesly Davies MD [address] [place] [address] Referring Gastroenterology 07/16/24 Wesly Davies MD [address] [place], [place] 4833440 Referring Gastroenterology 07/25/24 Launderer Hand Relationship Specialty Start Date End Date Eliana Springer APRN - PACKAGING SALES REPRESENTATIVE [address] [place] [address] PCP - General Certified Nurse Practitioner 04/23/23 Launderer Hand Relationship Specialty Start Date End Date Eliana Springer, ECONOMICS ANALYST.PACKAGING SALES REPRESENTATIVE [address] [place], [place] 5394683 PCP - General Family Medicine 08/15/24 Wesly Davies MD [address] [facility] [address] [place], [place] 9601440 Referring Gastroenterology 07/16/24 Wesly Davies MD [address] [facility] [place] 9824940 Referring Gastroenterology 07/25/24 Launderer Hand Relationship Specialty Start Date End Date Eliana Springer, ECONOMICS ANALYST.PACKAGING SALES REPRESENTATIVE [address] [facility], [place] 7261383 PCP - General Family Medicine 08/15/24 Wesly Davies MD [address] [facility] [place] 9429340 Referring Gastroenterology 07/16/24 Wesly Davies MD [address] [place], [place] 6860840 Referring Gastroenterology 07/25/24 Launderer Hand Relationship Specialty Start Date End Date Eliana Springer, ECONOMICS ANALYST.PACKAGING SALES REPRESENTATIVE [address] [facility] [place] [address] PCP - General Family Medicine 08/15/24 Wesly Davies MD [address] [place] [address] Referring Gastroenterology 07/16/24 Wesly Davies MD [address] [place], [place] 7215340 Referring Gastroenterology 07/25/24 Launderer Hand Relationship Specialty Start Date End Date Eliana Springer APRN.PACKAGING SALES REPRESENTATIVE [address] [place] [address] PCP - General Family Medicine 08/15/24 Wesly Davies MD [address] [facility] [address] [place], [place] 7362040 Referring Gastroenterology 07/16/24 Wesly Davies MD [address] [facility] [place] [address] [place] [address] Referring Gastroenterology 07/25/24 Launderer Hand Relationship Specialty Start Date End Date Eliana Springer ECONOMICS ANALYST.PACKAGING SALES REPRESENTATIVE [address] [place] [address] PCP - General Family Medicine 08/15/24 Wesly Davies MD [address] [facility] [place] [place] [address] [place] [address] Referring Gastroenterology 07/16/24 Wesly Davies MD [address] [facility] [place] [place] [address] [place] [address] Referring Gastroenterology 07/25/24 Launderer Hand Relationship Specialty Start Date End Date Eliana Springer ECONOMICS ANALYST.PACKAGING SALES REPRESENTATIVE [address] [place] [address] PCP - General Family Medicine 08/15/24 Wesly Davies MD [address] [facility] [address] [place], [place] 2102940 Referring Gastroenterology 07/16/24 Wesly Davies MD [address] [place], [place] 8967840 Referring Gastroenterology 07/25/24 Launderer Hand Relationship Specialty Start Date End Date Eliana Springer APRN.PACKAGING SALES REPRESENTATIVE [address] [place] [id number] PCP - General Family Medicine 08/15/24 Wesly Davies MD [address] [place], [place] 3670440 Referring Gastroenterology 07/16/24 Wesly Davies MD [address] [place] [address] Referring Gastroenterology 07/25/24 Launderer Hand Relationship Specialty Start Date End Date Eliana Springer APRN - PACKAGING SALES REPRESENTATIVE [address] [place], [place] [address] PCP - General Certified Nurse Practitioner 04/23/23 Launderer Hand Relationship Specialty Start Date End Date Eliana Springer APRN - PACKAGING SALES REPRESENTATIVE [address] [place], [place] [address] PCP - General Certified Nurse Practitioner 04/23/23 Launderer Hand Relationship Specialty Start Date End Date Eliana Springer APRN-PACKAGING SALES REPRESENTATIVE [address] [place] [address] PCP - General Nurse Practitioner 07/16/23 Launderer Hand Relationship Specialty Start Date End Date Eliana Springer APRN-PACKAGING SALES REPRESENTATIVE [address] [place] [address] PCP - General Nurse Practitioner 07/16/23 Launderer Hand Relationship Specialty Start Date End Date Eliana Springer APRN-CNP [address] [facility] [place] [address] PCP - General Nurse Practitioner 07/16/23 Launderer Hand Relationship Specialty Start Date End Date Eliana Springer APRN-CNP [address] [facility] [place] [address] PCP - General Nurse Practitioner 07/16/23 Launderer Hand Relationship Specialty Start Date End Date Eliana Springer APRN - CNP [address] [facility] [place] [address] PCP - General Certified Nurse Practitioner 04/23/23 Launderer Hand Relationship Specialty Start Date End Date Eliana Springer APRN-CNP [address] [facility] [place] [address] PCP - General Nurse Practitioner 07/16/23 Launderer Hand Relationship Specialty Start Date End Date Eliana Springer APRN-CNP [address] [facility] [place] [address] PCP - General Nurse Practitioner 07/16/23 Launderer Hand Relationship Specialty Start Date End Date Eliana Springer APRN-CNP [address] [facility] [place] [address] PCP - General Nurse Practitioner 07/16/23 Launderer Hand Relationship Specialty Start Date End Date Eliana Springer APRN-CNP [address] [facility] [place] [address] PCP - General Nurse Practitioner 07/16/23 Launderer Hand Relationship Specialty Start Date End Date Eliana Springer APRN-CNP [address] [facility] [place] [address] PCP - General Nurse Practitioner 07/16/23 Launderer Hand Relationship Specialty Start Date End Date Eliana Springer APRN-PACKAGING SALES REPRESENTATIVE [address] [place] [facility] [place] [address] PCP - General Nurse Practitioner 07/16/23 Launderer Hand Relationship Specialty Start Date End Date Eliana Springer APRN-PACKAGING SALES REPRESENTATIVE [address] [place] [facility] [place] [address] PCP - General Nurse Practitioner 07/16/23 Launderer Hand Relationship Specialty Start Date End Date Eliana Springer APRN-PACKAGING SALES REPRESENTATIVE [address] [place] [facility] [place] [address] PCP - General Nurse Practitioner 07/16/23 Launderer Hand Relationship Specialty Start Date End Date Eliana Springer APRN.PACKAGING SALES REPRESENTATIVE [address] [facility] [place] [address] PCP - General Family Medicine 08/15/24 Wesly Davies MD [address] [place], [place] 8353640 Referring Gastroenterology 07/16/24 Wesly Davies MD [address] [place] [address] Referring Gastroenterology 07/25/24 Launderer Hand Relationship Specialty Start Date End Date Eliana Springer APRN.PACKAGING SALES REPRESENTATIVE [address] [facility] [place] [address] PCP - General Family Medicine 08/15/24 Wesly Davies MD [address] [place], [place] 9348540 Referring Gastroenterology 07/16/24 Wesly Davies MD [address] [facility] [address] [place], [place] 8912140 Referring Gastroenterology 07/25/24 Launderer Hand Relationship Specialty Start Date End Date Eliana Springer APRN - PACKAGING SALES REPRESENTATIVE [address] [place], [place] 8910483 PCP - General Certified Nurse Practitioner 04/23/23 Launderer Hand Relationship Specialty Start Date End Date Eliana Springer APRN.PACKAGING SALES REPRESENTATIVE [address] [place] [address] [id number] PCP - General Family Medicine 08/15/24 Wesly Davies MD [address] [facility] [address] [place], [place] 9297640 Referring Gastroenterology 07/16/24 Wesly Davies MD [address] [facility] [address] [place], [place] 4360740 Referring Gastroenterology 07/25/24 Launderer Hand Relationship Specialty Start Date End Date Eliana Springer APRN.PACKAGING SALES REPRESENTATIVE [address] [place] [address] [id number] PCP - General Family Medicine 08/15/24 Wesly Davies MD [address] [facility] [address] [place], [place] 9028040 Referring Gastroenterology 07/16/24 Wesly Davies MD [address] [facility] [address] [place], [place] 6314740 Referring Gastroenterology 07/25/24 Launderer Hand Relationship Specialty Start Date End Date Eliana Springer APRN - PACKAGING SALES REPRESENTATIVE [address] [place] [address] PCP - General Certified Nurse Practitioner 04/23/23 Launderer Hand Relationship Specialty Start Date End Date Eliana Springer APRN.PACKAGING SALES REPRESENTATIVE [address] [place] [address] PCP - General Family Medicine 08/15/24 Wesly Davies MD [address] [facility] [place] [address] [place] [address] Referring Gastroenterology 07/16/24 Wesly Davies MD [address] [place] [address] Referring Gastroenterology 07/25/24 Launderer Hand Relationship Specialty Start Date End Date Eliana Springer APRN - PACKAGING SALES REPRESENTATIVE [address] [place] [phone] PCP - General Certified Nurse Practitioner 04/23/23 Launderer Hand Relationship Specialty Start Date End Date Eliana Springer APRN - PACKAGING SALES REPRESENTATIVE [address] [place] [phone] PCP - General Certified Nurse Practitioner 04/23/23 Launderer Hand Relationship Specialty Start Date End Date Eliana Springer APRN - PACKAGING SALES REPRESENTATIVE [address] [place] [address] PCP - General Certified Nurse Practitioner 04/23/23 Launderer Hand Relationship Specialty Start Date End Date Eliana Springer APRN - PACKAGING SALES REPRESENTATIVE [address] [place] [address] PCP - General Certified Nurse Practitioner 04/23/23 Launderer Hand Relationship Specialty Start Date End Date Eliana SpringerNATE CNP [address] [place] [address] PCP - General Certified Nurse Practitioner 04/23/23 Launderer Hand Relationship Specialty Start Date End Date Eliana Springer NATE Palomo CNP [address] [place] [phone] PCP - General Certified Nurse Practitioner 04/23/23 Reason for Visit (unrecogniz ed section and content) Specialty Diagnoses / Procedures Referred By Contac t Referred To Contact Radiology Diagnoses Preop cardiovascular exam Primary hypertension Mixed hyperlipidemia Intermittent chest pain Procedures Nuclear stress test with myocardial perfusion Uli Strong MD [address] [place] [address] Referral ID Status Reason Start Date Expiration Date Visits Re quested Visits Authorized [id number] Closed 06/29/2023 06/28/2024 3 3 Reason Comments Chest Pain Patient presents wit h complaint of chest 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 Patient reports that the pain was substernal with radiation to left shoulder and shortness of breath. Pain is described as sharpness denies nausea Specialty Diagnoses / Procedures Referred By Contac t Referred To Contact Radiology Diagnoses Cervical spinal stenosis Procedures CT CERVICAL SPINE W CONTRAST GiedraDanica molina MD [address] [place] [address] Referral ID Status Reason Start Date Expiration Date Visits Re quested Visits Authorized [id number] Closed 04/17/2024 04/17/2025 1 1 Reason Comments Fall Fell yesterday, pain in the lumbar and mid area, pain in left thumb and left wrist Reason Comments Bean Viner - Other Request for rec ords Reason [...] tramadol and tylenol without relief. Follows with [facility] and reports I am supposed [...] By Kwabena gray Referred To Contact Diagnoses IPMN (intraductal papillary mucinous neoplasm) Preoperative examination Procedures REFER TO [facility] PRE[facility]ATIVE OPTIMIZATION OFFICE/OUTPATIENT NEW HIGH MDM 60 [place] [address] [place] [id number] Referral ID Status Reason Start Date Expiration Date V isits Requested Visits Authorized [id number] Closed PCP Requested Referral 08/14/2024 08/14/2025 1 1 Reason Comments Radio Gen A21 Reason Comments Research IRB [id number] Reason Comments Patient Update Patient Question Reason Comments Neck Pain Pt states he has sti ff neck. States he recently was d/c from [facility] after having pancreas and spleen [...] couple of days ago. Went to [facility] in [place] on 12/03 took an xray and found [...] injury. Patient was with his in the [employer] when he was attempting to put up [...] movement. Specialty Diagnoses / Procedures Referred By Contramez gray Referred To Contact Diagnoses Acute pneumonia Irvin Shepard MD [address] [place] [address] Phone: tel: fax: [facility] [address] [place] [address] Referral ID Status Reason Start Date Expiration Date Visits Re quested Visits Authorized [id number] 1 1 Reason Comments Mental Health Problem [...] aleve at home with minimal relief. Illness Reason Comments Skin Check Scheduled Active and Recently Administ ered Medications [...] at 1645, For 1 dose 1657 ([facility] - Prov ider: Manuela Payan RN)1747 (Stopped [...] dose on Sun05/26/25 at 0900, Until Discontinued 0912 (Given - Provider: Clementina Ahumada RN) 0846 [...] 8 days 0846 (Given - Provider: Sneha Sims RN)2100 (Due) atorvastatin (LIPITOR) tablet 40 mg 40 mg, Oral, DAILY, First dose on Sun05/26/25 at 0900, Until Discontinued, On hold since Sun05/26/2025 at 0127 until manually unheld 012 (Held by provider - Provider: NATE Griffin CNP - Reason: Other)0900 (Automatically Held - Provider: NATE Griffin CNP) 0900 (Automatically Held - Provider: NATE Griffin CNP) azithromycin (ZITHROMAX) 500 mg in sodium chloride 0.9 % 250 mL IVPB ([id number]) (COMPLETED) 500 mg, IntraVENous, ONCE, 1 dose, On Sun05/25/25 at 2330, Antimicrobial Indications: Pneumonia (CAP), Use 20mm (Blue) [id number] Adapter Preparation instructions: Attach medication vial to one 20mm (Blue) [id number] adapter. Selvin fluid bag with adapter, mix, and administer per order. 0005 (New Bag - Provider: Mellissa Akins RN)0007 (Stopped - Provider: Clementina Ahumada RN)0007 (Stopped - Provider: Clementina Ahumada RN)0218 (Stopped - Provider: Cristina Moreau RN) azithromycin (ZITHROMAX) tablet 500 mg (CANCELED)(Linked Group [...] the morning)1035 (Given - Provider: Melva Chaparro RCP)203 (Given - Provider: Ana Barrios RCP) 0959 [...] RN) 0846 (Not Given - Provider: Sneha Sims, [facility] - Reason: Patient/family refused) clonazePAM (KLONOPIN) tablet 0.5 mg 0.5 mg, Oral, DAILY, First dose on Sun05/26/25 at 0900, Until Discontinued 09 (Given - Provider: Clementina Ahumada, [facility]) 0846 (Given - Provider: Sneha Sims, [facility]) clonazePAM (KLONOPIN) tablet 2 mg 2 mg, Oral, Nightly, First dose on Sun05/26/25 at 0045, Until Discontinued 0047 (Given - Provider: Cristina Moreau RN)2104 (Given - Provider: Rosenda Davis RN) 2099 (Due) doxycycline hyclate (VIBRAMYCIN) capsule 100 mg [...] zinc. 0846 (Given - Provider: Sneha Sims RN)2099 (Due) enoxaparin (LOVENOX) injection 40 mg 40 mg, SubCUTAneous, DAILY, First dose on Sun05/26/25 at 0900, Until Discontinued, Indication of Use: Prophylaxis-DVT/PE 913 (Given - Provider: Clementina Ahumada RN) 0846 [...] RT Bronchodilator Protocol: Yes - Inpatient Protocol 605 (Given - Provider: Ana Barriso RCP)1035 (Given - Provider: Melva Chaparro RCP)1509 (Given - Provider: Melva Chaparro RCP)2033 (Given - Provider: Ana Barrios RCP) 0452 (Given - Provider: Ana Barrios RCP)0959 (Given - Provider: Melva Chaparro RCP)1600 (Due - Provider: Ana Barrios RCP)2000 (Due - Provider: Ana Barrios RCP) toosgy-kepmlbwb-djwqnut (ZENPEP) delayed release capsule 35,000 Units 35,000 [...] dose on Sun05/26/25 at 0045, Until Discontinued 48 (Given - Provider: Cristina Moreau, [facility])2103 (Given - Provider: Rosenda Davis, RN) 2099 (Due) morphine sulfate (PF) injection 4 mg (COMPLETED) 4 mg, IntraVENous, ONCE, 1 dose, On Sun05/25/25 at 1745, If oral and IV narcotics ordered, use oral first and only use IV if oral is ineffective or cannot take oral. Do Not give oral and IV within 1 hour of each other unless specifically ordered. 1805 (Given - Provider: Manuela Payan RN) morphine sulfate (PF) injection 4 mg [...] 0846 (Given - Provider: Sneha Sims RN) prazosin (MINIPRESS) capsule 1 mg 1 mg, Oral, NIGHTLY, First dose on Sun05/26/25 at 0045, Until Discontinued 47 (Given - Provider: Cristina Moreau, [facility])2103 (Given - Provider: Rosenda Davis, RN) 2099 (Due) sodium chloride 0.9 % bolus 500 mL (COMPLETED) 500 mL, IntraVENous, at 247.9 mL/hr, Administer over 121 Minutes, ONCE, On Sun05/25/25 at 1745, For 1 dose 1804 (New Bag - Provider: Manuela Payan RN)2005 (Stopped - Provider: Mellissa Akins RN) sodium chloride 0.9 % bolus 500 mL [...] Infusing) 08 (Given - Provider: Sneha Sims RN)2100 (Due) tamsulosin (FLOMAX) capsule 0.4 mg 0.4 mg, Oral, DAILY, First dose on Sun05/26/25 at 0900, Until Discontinued, Do not crush or break. Give 30 minutes after a full meal to limit risk of orthostatic hypotension/falls. 910 (Given - Provider: Clementina Ahumada RN) 845 (Given - Provider: Sneha Sims RN) traMADol (ULTRAM) tablet 100 mg 100 mg, Oral, 2 TIMES DAILY, First dose on Sun05/26/25 at 0045, Until Discontinued 50 (Not Given - Provider: Cristina Moreau RN - Reason: Patient/family refused)910 (Given - Provider: Clementina Ahumada RN)2103 (Given - Provider: Rosenda Davis RN) 08 (Given - Provider: Sneha Sims RN)2100 (Due) vitamin B and C (TOTAL B-C) tablet 1 tablet 1 tablet, Oral, DAILY, First dose on Sun05/26/25 at 0900, Until Discontinued 0911 (Given - Provider: Clementina Ahumada RN) 0846 (Given - Provider: Sneha Sims RN) ziprasidone (GEODON) capsule 40 mg 40 mg, Oral, NIGHTLY, First dose on Sun05/26/25 at 0045, Until Discontinued, May cause prolongation of QT interval. Take with food. 0048 (Given - Provider: Cristina Moreau RN)2105 (Given - Provider: Rosenda Davis, RN) 2100 (Due) Continuous Medication Order 05/25/2025 05/26/2025 05/27/2025 0.9 % sodium chloride infusion IntraVENous, at 75 mL/hr, CONTINUOUS, Starting on Sun05/26/25 at 0045, For 24 hours, Complete last bag that is running at 24 hours and then saline lock IV 0120 (New Bag - Provider: Cristina Moreau RN)0120 (Rate/Dose Verify - Provider: Clementina Ahumada RN)0738 (Paused - Provider: Clementina Ahumada RN)0759 (Restarted - Provider: Clementina Ahumada RN)0800 (Paused - Provider: Clementina Ahumada RN)0819 (Restarted [...] for injection by adding 1 mL of slurry tank operator-supplied sterile diluent or sterile water for injection [...] RT Bronchodilator Protocol: Yes - Inpatient Protocol 010 (Given - Provider: Ana Barrios RCP) xfxwdv-ynmtrwcp-bpgebsp (ZENPEP) delayed release capsule 35,000 Units 35,000 [...] dairy, calcium, iron, magnesium, aluminum or zinc. 2302 (Given - Provid er: Iva Calix RN) bvmqve-ybxsxtmi-ctrwfkg (ZENPEP) delayed release capsule 10,000 Units 10,000 [...] stronger pain medications than the ordered tramadol; headline writer did tell physician) traMADol (ULTRAM) tablet 50 mg 50 mg, Oral, ONCE, 1 dose, On 05/30/25 at 2130 2138 (Not Given - Pr ovider: Lizzy Gonzales RN - Reason: Other - Comment: Pt given Percocet for pain) Scheduled Medication Order 06/16/2025 06/17/2025 06/18/2025 cefdinir (OMNICEF) capsule 300 mg (COMPLETED) 300 mg, Oral, ONCE, 1 dose, On Vashti 06/18/25 at 1830, Antimicrobial Indications: Pneumonia (CAP) 1830 (Given - Provid er: Jess Hackett RN) [...] hour of each other unless specifically ordered. 161 (Given - Provid er: Martha Hopson RN) [...] first time they get up after administration. 161 (Given - Provid er: Martha Hopson RN) [...] or prosecute any alcohol or drug abuse patient.[facility] the event this information is protected by the Federal Confidentiality of Alcohol and Drug Abuse Patient Records regulations: The Federal rules restrict any use of the information to criminally investigate or prosecute any alcohol or drug abuse patient.[facility] HospitalIn the event this information is protected by the Federal Confidentiality of Alcohol and Drug Abuse Patient Records regulations: The Federal rules restrict any use of the information to criminally investigate or prosecute any alcohol or drug abuse patient.[facility] HospitalIn the event this information is protected by the Federal Confidentiality of Alcohol and Drug Abuse Patient Records regulations: The Federal rules restrict any use of the information to criminally investigate or prosecute any alcohol or drug abuse patient.[facility] HospitalIn the event this information is protected by the Federal Confidentiality of Alcohol and Drug Abuse Patient Records regulations: The Federal rules restrict any use of the information to criminally investigate or prosecute any alcohol or drug abuse patient.[facility] HospitalIn the event this information is protected by the Federal Confidentiality of Alcohol and Drug Abuse Patient Records regulations: The Federal rules restrict any use of the information to criminally investigate or prosecute any alcohol or drug abuse patient.[facility] HospitalIn the event this information is protected by the Federal Confidentiality of Alcohol and Drug Abuse Patient Records regulations: The Federal rules restrict any use of the information to criminally investigate or prosecute any alcohol or drug abuse patient.[facility] HospitalIn the event this information is protected by the Federal Confidentiality of Alcohol and Drug Abuse Patient Records regulations: The Federal rules restrict any use of the information to criminally investigate or prosecute any alcohol or drug abuse patient.[facility] HospitalIn the event this information is protected by the Federal Confidentiality of Alcohol and Drug Abuse Patient Records regulations: The Federal rules restrict any use of the information to criminally investigate or prosecute any alcohol or drug abuse patient.[facility] HospitalIn the event this information is protected by the Federal Confidentiality of Alcohol and Drug Abuse Patient Records regulations: The Federal rules restrict any use of the information to criminally investigate or prosecute any alcohol or drug abuse patient.[facility] HospitalIn the event this information is protected by the Federal Confidentiality of Alcohol and Drug Abuse Patient Records regulations: The Federal rules restrict any use of the information to criminally investigate or prosecute any alcohol or drug abuse patient.[facility] HospitalIn the event this information is protected by the Federal Confidentiality of Alcohol and Drug Abuse Patient Records regulations: The Federal rules restrict any use of the information to criminally investigate or prosecute any alcohol or drug abuse patient.[facility] HospitalIn the event this information is protected by the Federal Confidentiality of Alcohol and Drug Abuse Patient Records regulations: The Federal rules restrict any use of the information to criminally investigate or prosecute any alcohol or drug abuse patient.[facility] HospitalIn the event this information is protected by the Federal Confidentiality of Alcohol and Drug Abuse Patient Records regulations: The Federal rules restrict any use of the information to criminally investigate or prosecute any alcohol or drug abuse patient.[facility] HospitalIn the event this information is protected by the Federal Confidentiality of Alcohol and Drug Abuse Patient Records regulations: The Federal rules restrict any use of the information to criminally investigate or prosecute any alcohol or drug abuse patient.[facility] HospitalIn the event this information is protected by the Federal Confidentiality of Alcohol and Drug Abuse Patient Records regulations: The Federal rules restrict any use of the information to criminally investigate or prosecute any alcohol or drug abuse patient.[facility] HospitalIn the event this information is protected by the Federal Confidentiality of Alcohol and Drug Abuse Patient Records regulations: The Federal rules restrict any use of the information to criminally investigate or prosecute any alcohol or drug abuse patient.[facility] HospitalIn the event this information is protected by the Federal Confidentiality of Alcohol and Drug Abuse Patient Records regulations: The Federal rules restrict any use of the information to criminally investigate or prosecute any alcohol or drug abuse patient.[facility] HospitalIn the event this information is protected by the Federal Confidentiality of Alcohol and Drug Abuse Patient Records regulations: The Federal rules restrict any use of the information to criminally investigate or prosecute any alcohol or drug abuse patient.[facility] HospitalIn the event this information is protected by the Federal Confidentiality of Alcohol and Drug Abuse Patient Records regulations: The Federal rules restrict any use of the information to criminally investigate or prosecute any alcohol or drug abuse patient.[facility] HospitalIn the event this information is protected by the Federal Confidentiality of Alcohol and Drug Abuse Patient Records regulations: The Federal rules restrict any use of the information to criminally investigate or prosecute any alcohol or drug abuse patient.[facility] HospitalIn the event this information is protected by the Federal Confidentiality of Alcohol and Drug Abuse Patient Records regulations: The Federal rules restrict any use of the information to criminally investigate or prosecute any alcohol or drug abuse patient.[facility] HospitalIn the event this information is protected by the Federal Confidentiality of Alcohol and Drug Abuse Patient Records regulations: The Federal rules restrict any use of the information to criminally investigate or prosecute any alcohol or drug abuse patient.[facility] HospitalIn the event this information is protected by the Federal Confidentiality of Alcohol and Drug Abuse Patient Records regulations: The Federal rules restrict any use of the information to criminally investigate or prosecute any alcohol or drug abuse patient.[facility] HospitalIn the event this information is protected by the Federal Confidentiality of Alcohol and Drug Abuse Patient Records regulations: The Federal rules restrict any use of the information to criminally investigate or prosecute any alcohol or drug abuse patient.[facility] HospitalIn the event this information is protected by the Federal Confidentiality of Alcohol and Drug Abuse Patient Records regulations: The Federal rules restrict any use of the information to criminally investigate or prosecute any alcohol or drug abuse patient.[facility] HospitalIn the event this information is protected by the Federal Confidentiality of Alcohol and Drug Abuse Patient Records regulations: The Federal rules restrict any use of the information to criminally investigate or prosecute any alcohol or drug abuse patient.[facility] HospitalIn the event this information is protected by the Federal Confidentiality of Alcohol and Drug Abuse Patient Records regulations: The Federal rules restrict any use of the information to criminally investigate or prosecute any alcohol or drug abuse patient.[facility] HospitalIn the event this information is protected by the Federal Confidentiality of Alcohol and Drug Abuse Patient Records regulations: The Federal rules restrict any use of the information to criminally investigate or prosecute any alcohol or drug abuse patient.[facility] HospitalIn the event this information is protected by the Federal Confidentiality of Alcohol and Drug Abuse Patient Records regulations: The Federal rules restrict any use of the information to criminally investigate or prosecute any alcohol or drug abuse patient.[facility] HospitalIn the event this information is protected by the Federal Confidentiality of Alcohol and Drug Abuse Patient Records regulations: The Federal rules restrict any use of the information to criminally investigate or prosecute any alcohol or drug abuse patient.[facility] HospitalIn the event this information is protected by the Federal Confidentiality of Alcohol and Drug Abuse Patient Records regulations: The Federal rules restrict any use of the information to criminally investigate or prosecute any alcohol or drug abuse patient.[facility] HospitalIn the event this information is protected by the Federal Confidentiality of Alcohol and Drug Abuse Patient Records regulations: The Federal rules restrict any use of the information to criminally investigate or prosecute any alcohol or drug abuse patient.[facility] HospitalIn the event this information is protected by the Federal Confidentiality of Alcohol and Drug Abuse Patient Records regulations: The Federal rules restrict any use of the information to criminally investigate or prosecute any alcohol or drug abuse patient.[facility] the event this information is protected by the Federal Confidentiality of Alcohol and Drug Abuse Patient Records regulations: The Federal rules restrict any use of the information to criminally investigate or prosecute any alcohol or drug abuse patient.[facility] HospitalIn the event this information is protected by the Federal Confidentiality of Alcohol and Drug Abuse Patient Records regulations: The Federal rules restrict any use of the information to criminally investigate or prosecute any alcohol or drug abuse patient.[facility] HospitalIn the event this information is protected by the Federal Confidentiality of Alcohol and Drug Abuse Patient Records regulations: The Federal rules restrict any use of the information to criminally investigate or prosecute any alcohol or drug abuse patient.[facility]In the event this information is protected by the Federal Confidentiality of Alcohol and Drug Abuse Patient Records regulations: The Federal rules restrict any use of the information to criminally investigate or prosecute any alcohol or drug abuse patient.[facility] HospitalIn the event this information is protected by the Federal Confidentiality of Alcohol and Drug Abuse Patient Records regulations: The Federal rules restrict any use of the information to criminally investigate or prosecute any alcohol or drug abuse patient.[facility] HospitalIn the event this information is protected by the Federal Confidentiality of Alcohol and Drug Abuse Patient Records regulations: The Federal rules restrict any use of the information to criminally investigate or prosecute any alcohol or drug abuse patient.[facility] HospitalIn the event this information is protected by the Federal Confidentiality of Alcohol and Drug Abuse Patient Records regulations: The Federal rules restrict any use of the information to criminally investigate or prosecute any alcohol or drug abuse patient.[facility] HospitalIn the event this information is protected by the Federal Confidentiality of Alcohol and Drug Abuse Patient Records regulations: The Federal rules restrict any use of the information to criminally investigate or prosecute any alcohol or drug abuse patient.[facility] HospitalIn the event this information is protected by the Federal Confidentiality of Alcohol and Drug Abuse Patient Records regulations: The Federal rules restrict any use of the information to criminally investigate or prosecute any alcohol or drug abuse patient.[facility] HospitalIn the event this information is protected by the Federal Confidentiality of Alcohol and Drug Abuse Patient Records regulations: The Federal rules restrict any use of the information to criminally investigate or prosecute any alcohol or drug abuse patient.[facility] HospitalIn the event this information is protected by the Federal Confidentiality of Alcohol and Drug Abuse Patient Records regulations: The Federal rules restrict any use of the information to criminally investigate or prosecute any alcohol or drug abuse patient.[facility] HospitalIn the event this information is protected by the Federal Confidentiality of Alcohol and Drug Abuse Patient Records regulations: The Federal rules restrict any use of the information to criminally investigate or prosecute any alcohol or drug abuse patient.[facility] HospitalIn the event this information is protected by the Federal Confidentiality of Alcohol and Drug Abuse Patient Records regulations: The Federal rules restrict any use of the information to criminally investigate or prosecute any alcohol or drug abuse patient.[facility] HospitalIn the event this information is protected by the Federal Confidentiality of Alcohol and Drug Abuse Patient Records regulations: The Federal rules restrict any use of the information to criminally investigate or prosecute any alcohol or drug abuse patient.[facility] HospitalIn the event this information is protected by the Federal Confidentiality of Alcohol and Drug Abuse Patient Records regulations: The Federal rules restrict any use of the information to criminally investigate or prosecute any alcohol or drug abuse patient.[facility] HospitalIn the event this information is protected by the Federal Confidentiality of Alcohol and Drug Abuse Patient Records regulations: The Federal rules restrict any use of the information to criminally investigate or prosecute any alcohol or drug abuse patient.[facility] HospitalIn the event this information is protected by the Federal Confidentiality of Alcohol and Drug Abuse Patient Records regulations: The Federal rules restrict any use of the information to criminally investigate or prosecute any alcohol or drug abuse patient.[facility] HospitalIn the event this information is protected by the Federal Confidentiality of Alcohol and Drug Abuse Patient Records regulations: The Federal rules restrict any use of the information to criminally investigate or prosecute any alcohol or drug abuse patient.[facility] HospitalIn the event this information is protected by the Federal Confidentiality of Alcohol and Drug Abuse Patient Records regulations: The Federal rules restrict any use of the information to criminally investigate or prosecute any alcohol or drug abuse patient.[facility] HospitalIn the event this information is protected by the Federal Confidentiality of Alcohol and Drug Abuse Patient Records regulations: The Federal rules restrict any use of the information to criminally investigate or prosecute any alcohol or drug abuse patient.[facility] HospitalIn the event this information is protected by the Federal Confidentiality of Alcohol and Drug Abuse Patient Records regulations: The Federal rules restrict any use of the information to criminally investigate or prosecute any alcohol or drug abuse patient.[facility] HospitalIn the event this information is protected by the Federal Confidentiality of Alcohol and Drug Abuse Patient Records regulations: The Federal rules restrict any use of the information to criminally investigate or prosecute any alcohol or drug abuse patient.[facility] HospitalIn the event this information is protected by the Federal Confidentiality of Alcohol and Drug Abuse Patient Records regulations: The Federal rules restrict any use of the information to criminally investigate or prosecute any alcohol or drug abuse patient.[facility] HospitalIn the event this information is protected by the Federal Confidentiality of Alcohol and Drug Abuse Patient Records regulations: The Federal rules restrict any use of the information to criminally investigate or prosecute any alcohol or drug abuse patient.[facility] HospitalIn the event this information is protected by the Federal Confidentiality of Alcohol and Drug Abuse Patient Records regulations: The Federal rules restrict any use of the information to criminally investigate or prosecute any alcohol or drug abuse patient.[facility] HospitalIn the event this information is protected by the Federal Confidentiality of Alcohol and Drug Abuse Patient Records regulations: The Federal rules restrict any use of the information to criminally investigate or prosecute any alcohol or drug abuse patient.[facility] HospitalIn the event this information is protected by the Federal Confidentiality of Alcohol and Drug Abuse Patient Records regulations: The Federal rules restrict any use of the information to criminally investigate or prosecute any alcohol or drug abuse patient.[facility] Ordered Prescriptions (unrec ognized section and [...] daily for 10 days 20 tablet 06/18/2025 cefdinir (OMNICEF) 300 MG capsule Take 1 [...] BE BASED ON THE PRIMARY CLINICAL RECORDS. [facility] [employer] provides no warranty or guarantee of the accuracy or completeness of information in this document.
--- NOTE | 2025-08-10 15:13 | PM.CN ---
Consult Note: HPI Data of Consult Patient: known to practice within the last 3 years Consult date: 08/10/25 Requesting Physician: Danica Conklin MD Primary Care Provider: Meg Lynn Consult Narrative Reason for consult: bilateral knee pain Narrative: 54yom who presents for bilateral knee injections. cc:: CC: Danica Conklin MD Review of Systems ROS Status of ROS 10 or more systems reviewed and unremarkable except as noted in history and below PFSH PFSH Medical History Pancreatic cancer ?C25.9 - Malignant neoplasm of pancreas, unspecified (ICD-10) Diabetes ?E11.9 - Type 2 diabetes mellitus without complications (ICD-10) High cholesterol ?E78.00 - Pure hypercholesterolemia, unspecified (ICD-10) Surgical History History of back surgery ?Z98.890 - Other specified postprocedural states (ICD-10) Hx of cholecystectomy ?Z90.49 - Acquired absence of other specified parts of digestive tract (ICD-10) Status post insertion of spinal cord stimulator ?Z96.89 - Presence of other specified functional implants (ICD-10) History of kyphoplasty ?Z98.890 - Other specified postprocedural states (ICD-10) History of splenectomy ?Z90.81 - Acquired absence of spleen (ICD-10) 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 (ICD-10) Meds Home Medications and Allergies Home Medications ?Medication ?Instructions ?Recorded ?Confirmed ?Type amitriptyline 50 mg tablet 50 mg PO DAILY 04/14/24 12/22/24 History amlodipine 2.5 mg tablet 2.5 mg PO DAILY 04/14/24 12/22/24 History atorvastatin 40 mg tablet 40 mg PO DAILY 04/14/24 12/22/24 History cholecalciferol (vitamin D3) 50 5,000 unit PO DAILY 04/14/24 12/22/24 History mcg (2,000 unit) capsule (D3-2000) fenofibrate 54 mg tablet 54 mg PO DAILY 04/14/24 12/22/24 History ferrous sulfate 325 mg (65 mg 325 mg PO DAILY 04/14/24 12/22/24 History iron) tablet (Feosol) fexofenadine 180 mg tablet 180 mg PO DAILY 04/14/24 12/22/24 History ywafbt-fqchornr-hpgqqbb 1 cap PO TID 04/14/24 12/22/24 History (pork)36,000-114,000-180k unit capsule,del rel (Creon) mepolizumab 100 mg/mL subcutaneous mg subcut .MONTHLY 04/14/24 History syringe (Nucala) montelukast 10 mg tablet 10 mg PO DAILY 04/14/24 12/22/24 History omeprazole 40 mg capsule,delayed 40 mg PO DAILY 04/14/24 12/22/24 History release prazosin 1 mg capsule 1 mg PO DAILY 04/14/24 12/22/24 History vitamin B complex (Vitamins B 1 cap PO DAILY 04/14/24 12/22/24 History Complex capsule) ziprasidone HCl 40 mg capsule 40 mg PO .QD 04/14/24 12/22/24 History fluticasone furoate 50 inhalation 11/24/24 History mcg-vilanterol 25 mcg/dose inhalation powder (Breo Ellipta) tramadol 100 mg capsule 100 mg PO DAILY PRN pain #30 caps 05/25/25 Rx 24h,extended release(25-75) tramadol 50 mg tablet See Rx Instructions .Route 05/25/25 Rx .COMPLEX PRN pain #120 tabs baclofen 10 mg tablet See Rx Instructions .Route 07/09/25 Rx .COMPLEX PRN muscle spasm #30 tabs tramadol 100 mg tablet,extended 100 mg PO DAILY PRN pain #30 tabs 08/04/25 Rx release 24 hr tramadol 50 mg tablet See Rx Instructions .Route 08/04/25 Rx .COMPLEX PRN pain #120 tabs Allergies Allergy/AdvReac Type Severity Reaction Status Date / Time codeine Allergy Mild Hives Verified 12/22/24 09:49 ibuprofen Allergy Mild Hives Verified 12/22/24 09:49 ondansetron (From Zofran) Allergy Mild Hives Verified 12/22/24 09:49 naproxen (From Aleve) AdvReac Mild Vomiting Verified 12/22/24 09:49 Exam Narrative Exam Narrative: Psych-alert and oriented x 3.? Attentive and appropriate, constitutionally normal, displays normal mood and affect per situation.? There are no obvious deficits in memory, reasoning, or intellect. Extremities-lower extremities are warm with minimal edema and palpable pulses. Knee-examination of the bilateral knee reveals tenderness to palpation over the superior, inferior, lateral, and medial aspect of the knee.? Some swelling is noted without erythema. Pain is elicited with flexion and extension of the knee both actively and passively.? Some grinding is noted with these motions.? There is no notable ligamental laxity or instability.? Coordination remains intact.? Gait remains antalgic. Assessment and Plan Assessment and Plan (1) Bilateral primary osteoarthritis of knee: (2) Failed back syndrome: Plan 54yom who presents for in office injections. continues to have bilateral knee pain, so will proceed with bilateral knee injections. also notes that stimulator battery is nearing its end of life, as cannot maintain a charge and not functioning as before. given significant relief with properly functioning battery, will have him scheduled for scs battery exchange. he is in agreement. follow up after battery exchange. procedure: bilateral knee injection medication: durolane PRECIADO x2 I explained the details of the procedure to the patient including the risks, benefits and alternatives. We had an informed discussion and the patient verbalized understanding and signed the consent form. All questions were answered appropriately.? A time out was performed.? After obtaining a comfortable seated position, the left knee was prepped with alcohol x3. A syringe containing the above medication was attached to a 25 gauge, 1.5 inch needle under strict aseptic technique. The lateral tibial plateau was palpated.? The needle was then advanced through the subcutaneous tissue in a medial and superior direction towards the joint space.? The contents of the syringe were gently injected without any resistance. The needle was removed and pressure was applied to the injection site to decrease the incidence of ecchymosis and hematoma formation.? A sterile bandage was applied. The same procedure was then completed on the opposite side.
== END 2025-08-10 14:53 | disposition home or self-care (01) ==
LOC: PM 14:52
PROVIDERS: PCP Nurse Practitioner Family; Visit Provider Anesthesiology
DX: M17.0 Bilateral primary osteoarthritis of knee (principal); M96.1 Postlaminectomy syndrome, not elsewhere classified
CPT/HCPCS: 20610; J7318

== ENCOUNTER 2025-09-21 13:17 | Outpatient (OUT) | payer MEDICARE, MEDICAID, SELFPAY ==
--- OUTSIDE RECORDS SUMMARY | 2017-08-02 19:00 | XMS_ITS | Continuity of Care Document ---
Author Organization [employer] [facility] Address [address] [place] [address] Phone Care Team Providers Care Technical Sales Advisor Name Role Phone Unavailable Unavailable Unavailable Allergies, Adverse Reactions, Alerts Substance Reaction Status Criticality codeine GI problems Active No Information Medications Medication Instructions Dosage Effective Dates (start - stop) Status Comments Flagyl 500 mg tablet take 1 tablet by oral route every 8 hours - Active Cipro 500 mg tablet take 1 tablet by oral route every 12 hours 500 MG - Active omeprazole 20 mg capsule,delayed release take 1 capsule by oral route every day 30 minutes to 1 hour before a meal 20 MG - Active naproxen sodium 220 mg capsule - Active amitriptyline 25 mg tablet take 1 tablet by oral route every day at bedtime 25 MG - Active Geodon 20 mg capsule take 1 capsule by oral route every day with food 20 MG - Active clonazepam 1 mg tablet take 1 tablet by oral route 3 times every day 1 MG - Active tramadol 50 mg tablet take 1 tablet by oral route every 6 hours as needed 50 MG - No Longer Active Procedures Procedure Date OFFICE/OUTPATIENT VISIT, EST THER/PROPH/DIAG INJ, SC/IM DESTROY LUMB/SAC FACET JNT DESTROY L/S FACET JNT ADDL MOD SED SAME PHYS/QHP 5/>YRS OFFICE/OUTPATIENT VISIT, EST DESTROY LUMB/SAC FACET JNT DESTROY L/S FACET JNT ADDL MOD SED SAME PHYS/QHP 5/>YRS INJ PARAVERT F JNT L/S 1 LEV INJ PARAVERT F JNT L/S 2 LEV INJ PARAVERT F JNT L/S 3 LEV OFFICE/OUTPATIENT VISIT, EST OFFICE/OUTPATIENT VISIT, EST Perq vertebral augmentation Thoracic Mar Perq Augment Ea Additional Thorac Or Lum bar Vert POSTOP FOLLOW-UP VISIT Perq vertebral augmentation Thoracic February Perq Augment Ea Additional Thorac Or Lum bar Vert DESTROY LUMB/SAC FACET JNT DESTROY L/S FACET JNT ADDL DESTROY LUMB/SAC FACET JNT DESTROY L/S FACET JNT ADDL OFFICE/OUTPATIENT VISIT, EST INJ PARAVERT F JNT L/S 1 LEV INJ PARAVERT F JNT L/S 2 LEV INJ PARAVERT F JNT L/S 3 LEV INJECT SPINE C/T INJ PARAVERT F JNT L/S 1 LEV INJ PARAVERT F JNT L/S 2 LEV INJ PARAVERT F JNT L/S 3 LEV OFFICE/OUTPATIENT VISIT, EST OFFICE/OUTPATIENT VISIT, EST INJECT SPINE C/T OFFICE/OUTPATIENT VISIT, EST OFFICE/OUTPATIENT VISIT, NEW OFFICE/OUTPATIENT VISIT, EST Advance Directives Directive Yes / No Effective Date File Name No Information Encounters Encounter Description Practice Location Reason(s) For Visit Diagnoses Date Provider Providers Copied on Encounter OFFICE/OUTPAT IENT VISIT, EST [employer] [facility], [address] [place] [address], [id number], [place] tel:[phone] [facility] OP No Information 3201 7 No Information [facility] [employer] [facility], [address] [place] [address], [id number], [place] tel:[phone] [place] [address] OP No Information 7 No Information OFFICE/OUTPAT IENT VISIT, [employer], [address], [place], [id number], [place] tel:[phone] [place] [address] OP No Information 7 No [employer], [address], [place], [id number], [place] tel:[phone] [place] [address] OP No Information 7 No [employer], [address], [place], [id number], [place] tel:[phone] [place] [address] OP No Information 7 No Information OFFICE/OUTPAT IENT VISIT, [employer] [facility], [address], [place], [id number], [place] tel:[phone] [place] [address] OP No Information 7 No Information OFFICE/OUTPAT IENT VISIT, [employer], [address], [place], [id number], [place] tel:[phone] [place] [address] OP No Information 6 No Information [employer], [address], [place], [id number], [place] tel:[phone] [place] [address] OP No Information 6 No Information [employer], [address], [place], [id number], [place] tel:[phone] [place] [address] OP No Information 6 No Information [employer], [address], [place], [id number], [place] tel:[phone] [place] [address] OP No Information 6 No Information [employer], [address], [place], [id number], [place] tel:[phone] [place] [address] OP No Information 0- 6 No Information [employer], [address], [place], [id number], [place] tel:[phone] [place] [address] OP No Information 6 No Information OFFICE/OUTPAT IENT VISIT, [employer], [address], [place], [id number], [place] tel:[phone] [place] [address] OP No Information 6 No Information [employer], [address], [place], [id number], [place] tel:[phone] [place] [address] OP No Information 6 No [employer], [address], [place], [id number], [place] tel:[phone] [place] [address] OP No Information 6 No [employer], [address], [place], [id number], [place] tel:[phone] [place] [address] OP No Information 6 No Information OFFICE/OUTPAT IENT VISIT, [employer], [address], [place], [id number], [place] tel:[phone] [place] [address] OP No Information 6 No Information OFFICE/OUTPAT IENT VISIT, [employer], [address], [place], [id number], [place] tel:[phone] [place] [address] OP No Information 6 No Information [employer], [address], [place], [id number], [place] tel:[phone] [place] [address] OP No Information 6 No Information OFFICE/OUTPAT IENT VISIT, [employer], [address], [place], [id number], [place] tel:[phone] [place] [address] OP No Information 0 5 No Information OFFICE/OUTPAT IENT VISIT, [facility], [address], [place], [place], [id number], [place] tel:[phone] [facility] OP No Information No Information OFFICE/OUTPAT IENT VISIT, [facility], [address], [place], [place], [id number], [place] tel:[phone] [facility] c/o fever achey (chief complaint) Diverticulitis Devin Yeh. [address], [place], [id number], [place]. tel:[phone] Referring Provider: Rao Frances, [address] [place], [address] . tel:[phone] Family History Family Member Type Diagnosis Age At Onset No Information Payers Payer name Insurance type Covered libertarian ID Authoriza tion(s) Medicare MB [id number] Social History Type Description Quantity Date Captured Comments Sex Male Smoking Status No Information Chief Complaint And Reason For Visit No Information Reason For Referral Reason For Referral No Information History Of Present Illness Encounter Date Complaint History Of Prese nt Illness c/o fever achey (comments) has h istory of diverticulosis and diverticulitis and he and his partner feel this illness seems very similar to his previous episodes of diverticulitis. c/o fever achey The symptoms beg an 2 weeks ago. The symptoms are reported as being moderate. The symptoms occur constantly. He states the symptoms are acute and have worsened. pt has had a low grade temp,loose stools.pt has hx of diverticulitis,fatigue and feeling run down,low energy. Functional Status Date Functional Assessmen t No Information Instructions Date Instruction Additional Infor mation reviewed diagnosis a nd exam findings as consistent with possible low grade diverticulitisI will treat with antibiotics and reviewed the risks and potential side effects of medicationsAlso reviewed in detail the importance of going to ER if symptoms worsen or persistHe understands this and is in agreementAll questions answered Related to Diverticulitis Assessments Type Assessment Date No Information Patient Care Teams Name Effective Dates (start - stop) Status Members No Information
--- OUTSIDE RECORDS SUMMARY | 2025-09-21 13:21 | XMS_ITS | Clinical Summary ---
Author Organization [facility] Healthcare Address [address] [place] [address] Care Team Providers Care Hide And Skin Processing Worker Name Role Phone Unavailable Primary Care Provider Unavailabl e Allergies Active AllergyReactionsCriticalityNoted DateCommentsCodeineHives,Nausea And Vomiting,KvdtoJovj49/16/9978Hovagcgdhec88/17/2025 Medications MedicationSigDispense QuantityRefillsLast FilledStart DateEnd DateStatus fenofibrate (Tricor) 54 MG tablet Take 54 mg by mouth5Active montelukast (Singulair) 10 MG tablet 1 tablet Orally Once a day for 30 day(s)4Active traMADol ER (Ultram-ER) 100 MG 24 hr tablet 5Active omeprazole (PriLOSEC) [address] capsule 1 capsule 30 minutes before morning meal Orally Once a day5Active Lantus SoloStar 100 UNIT/ML pen Inject 25 Units under the skin in the morning.5Active clonazePAM (KlonoPIN) 0.5 MG tablet Take 0.5 mg by mouthActive levoFLOXacin (Levaquin) 500 MG tablet 07/31/2025tive tamsulosin (Flomax) 0.4 MG 24 hr capsule Take 0.4 mg by mouth Daily4Active baclofen (Lioresal) 10 MG tablet 5Active amitriptyline (Elavil) 25 MG tablet Take 25 mg by mouth at bedtimeActive amLODIPine (Norvasc) 2.5 MG tablet Take 2.5 mg by mouth Daily5Active atorvastatin (Lipitor) 20 MG tablet Take 20 mg by mouth in the morning.Active B Complex-C (b complex-vitamin c) tablet Take 1 tablet by mouth in the morning.Active cholecalciferol (Vitamin D-3) 50 MCG (1999) tablet Take 2,000 Units by mouth in the morning.Active cyclobenzaprine (Flexeril) 10 MG tablet Take 10 mg by mouth in the morning and 10 mg at noon and 10 mg in the evening. Active Active Problems No known active problems Encounters DateTypeDepartmentCare DjixBiogoxaomnj23/17/2025 8:10 AM EDTOffice Visit [facility] [address] [facility] [place] [address] Ana Laura Aranda PA Melanocytic nevus of trunk (Primary Dx); Sebaceous hyperplasia; Qhhkjrumpran22/17/2025amboo flowsheet [facility] [address] [place] [id number] Ana Laura Aranda PA 08/07/2025Travelfrom Last 3 Months Social History Tobacco UseTypesPacks/DayYears UsedDateSmoking Tobacco: NeverSmokeless Tobacco: Never Tobacco Cessation:Counseling Given: Not Answered Sex and Gender InformationValueDate RecordedSex Assigned at BirthNot on file Legal DjoUmpl7001/03/2023 10:53 PM EDTGender IdentityNot on fileSexual Orientation Not on file Plan of Treatment DateTypeDepartmentCare Team (Latest Contact Info)Rvgnsdqwmyt69/16/2026 8:20 AM EDTOffice Visit [facility] [address] [place] [address] Ana Laura Aranda PA [address] [place] [address] Health MaintenanceDue DateLast DoneCommentsCT Xsghxiwyebjm80/15/1970FIT-DNA 1969FIT1969FOBT1969 9681Gnklrtpcloahm96/15/1970COVID-19 Vaccine ( season)509/, 02/01/2021, 01/03/2021Influenza Vaccine (#1)510/, 08/13/2023, 06/29/2020, Additional history exists Ktcvppfjkyf14/2023Colorectal Cancer Bfxhktgpd12/12/2033Pneumococcal Vaccine: Pediatrics (0 to 5 Years) and At-Risk Patients (6 to 64 Years)Aged Out No longer eligible based on patient's age to complete this topic Insurance
--- OUTSIDE RECORDS SUMMARY | 2025-09-21 13:21 | XMS_ITS | Encounter Summary ---
Author Organization [facility] Address [address] [place] [address] Care Team Providers Care Business Applications Developer Name Role Phone Wesly Davies MD Unavailable [phone] Wesly Davies MD Unavailable [phone] Meg Lynn APRN.[facility] Primary Care Provider Source Comments In the event this information is protected by the Federal Confidentiality of Alcohol and Drug AbusePatient Records regulations: The Federal rules restrict any use of the information to criminally investigate or prosecute any alcohol or drug abuse patient.[facility] Reason for Visit * ReasonCommentsRequest For Clinical Notes Encounter Details DateTypeDepartmentCare Team (Latest Contact Info)Xerzvcsfwop27/26/2025Telephone Endocrinology [address] [place] [address] Kathy Bravo MD [address] [place] [address] Request For Clinical Notes Social History Tobacco UseTypesPacks/DayYears UsedDateSmoking Tobacco: NeverPassive Smoke Exposure: NeverSmokeless Tobacco: NeverAlcohol UseStandard Drinks/WeekComments Not Currently0 (1 standard drink = 0.6 oz pure alcohol)[facility] UtilitiesAnswerDate RecordedIn the past 12 months has the electric, gas, oil, or water company threatened to shut off services in your home?No08/29/2024Hunger Vital SignAnswer Date RecordedWithin the past 12 months, you worried that your food would run out before you got the money to buymore.Never true08/29/2024Within the past 12 months, the food you bought just didn't last and you didn't have money to get more.Never true08/29/2024RAPARE - TransportationAnswerDate RecordedIn the past 12 months, has lack of transportation kept you from medical appointments or from getting medications?No08/29/2024In the past 12 months, has lack of transportation kept you from meetings, work, or from getting things needed for daily living?No08/29/2024Housing Stability Vital SignAnswerDate RecordedIn the last 12 months, was there a time when you were not able to pay the mortgage or rent on time?No08/29/2024In the past 12 months, how many times have you moved where you were living?t any time in the past 12 months, were you homeless or living in a halfway (including now)?No08/29/2024rea Deprivation IndexAnswerDate RecordedNational Score (1-100), lower number is lower risk84 01/23/2025State Score (1-10), lower number is lower elpu54901/23/2025Data from: https://www.neighborhoodatlas.[facility].edu/. Last address used for iqvsdwhqsev[address]01/23/2025Sex and Gender InformationValueDate Recorded Sex Assigned at HgedtFwyj96/05/2025 10:21 AM ESTLegal CxxYdua6107/14/2024 4:42 PM EDTGender AucagtorHcfh94/05/2025 10:21 AM ESTSexual OrientationStraight 12/24/2024 10:21 AM ESTdocumented as of this encounter Miscellaneous Notes * Telephone Encounter - Floresita Joseph MA - 09/16/2025 8:57 AM EST September 16, 2025 8:57 AM Last encounter Visit on 07/07/2025 (with Kathy Bravo) The request for clinical notes have been faxed to: [place] Fax. [phone] Floresita Joseph Audio Visual Director II Endocrinology & Metabolism [place] F20-X documented in this encounter Plan of Treatment DateTypeDepartmentCare Team (Latest Contact Info)Pprcsakufnr85/17/2025 11:20 AM ESTDistance Health [facility] [address] [phone] Kathy Bravo MD [address] [place] [address] per documented as of this encounter Visit Diagnoses Not on filedocumented in this encounter Care Teams Team MemberRelationshipSpecialtyStart DateEnd Date Meg Lynn, SUBSTATION DESIGN DRAFTSPERSON.VENEER STACKER [address] [place] [address] PCP - GeneralFamily Umoipkxo02/25/24 Wesly Davies MD [address] [place] [place] [address] ReferringGastroenterology07/16/24 Wesly Davies MD [address] [place] [address] BpqlsdkllJingzrtsgwfrheqt09/4/24documented as of this encounter
--- OUTSIDE RECORDS SUMMARY | 2025-09-21 13:21 | XMS_ITS | Encounter Summary ---
Author Organization [facility] Address [address] [place] [address] Care Team Providers Care Power Technician Name Role Phone Wesly Davies MD Unavailable [phone] Wesly Davies MD Unavailable [phone] Meg Lynn APRN.[facility] Primary Care Provider Source Comments In the event this information is protected by the Federal Confidentiality of Alcohol and Drug AbusePatient Records regulations: The Federal rules restrict any use of the information to criminally investigate or prosecute any alcohol or drug abuse patient.[facility] Reason for Visit * ReasonCommentsRefill Request Encounter Details DateTypeDepartmentCare Team (Latest Contact Info)Felzzvlcpat14/30/2025Refill Endocrinology [address] [place] [address] Damion Bravo MD [address] [place] [address] Refill Request Social History Tobacco UseTypesPacks/DayYears UsedDateSmoking Tobacco: NeverPassive Smoke Exposure: NeverSmokeless Tobacco: NeverAlcohol UseStandard Drinks/WeekComments Not Currently0 (1 standard drink = 0.6 oz pure alcohol)[facility] UtilitiesAnswerDate RecordedIn the past 12 months has [...] or living in a group home (including now)?No08/29/2024rea Deprivation IndexAnswerDate RecordedNational Score (1-100), lower number is lower risk84 01/23/2025State Score (1-10), lower number is lower taug91401/23/2025Data from: https://www.neighborhoodatlas.medicine.[facility].edu/. Last address used for zcif[address]ruzfc[address]01/23/2025Sex and Gender InformationValueDate Recorded Sex Assigned at OeiukZfgd88/05/2025 10:21 AM ESTLegal AujFzld9207/14/2024 4:42 PM EDTGender BlgzspyaPazx83/05/2025 10:21 AM ESTSexual OrientationStraight 12/24/2024 10:21 AM ESTdocumented as of this encounter Miscellaneous Notes * Telephone Encounter - Conner Pratt MA - 09/21/2025 7:56 AM EST Images from the original note were not included. 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) 10/31/2024 in ENDO MAIN CA 4 with DAMION BRAVO for Post-pancreatectomy diabetes (HCC) 12/24/2024 in ENDO MAIN with DAMION BRAVO for Post-pancreatectomy diabetes (HCC) 03/31/2025 in [facility] MAIN with DAMION BRAVO for Post-pancreatectomy diabetes (HCC) 07/07/2025 in [facility] MAIN with DAMION BRAVO for Post-pancreatectomy diabetes (HCC) Upcoming Endocrinology Appointments - Next 365 Days Visit Type Date Time Department VIDEO EST BETO 10/07/2025 11:20 AM ENDO MAIN Requested Prescriptions Pending Prescriptions Disp Refills MOUNJARO 2.5 mg/0.5 mL pen injector [Pharmacy Med Name: MOUNJARO 2.5 MG/0.5 ML PEN] 2 mL 0 Sig: INJECT 2.5 MG UNDER THE SKIN ONCE WEEKLY Hemoglobin A1c: None on file in the last 12 months TSH: None on file in the last 12 months Free T3: None on file in the last 12 months Free T4: None on file in the last 12 months Thyroglobulin: None on file in the last 12 months Vitamin D: None on file in the last 12 months Hematocrit: None on file in the last 12 [...] last 12 months documented in this encounter Plan of Treatment DateTypeDepartmentCare Team (Latest Contact Info)Gusgnqqarce49/17/2025 11:20 [facility] [address] [place] [address] Damion Bravo MD [address] [place] [address] per dobrettmented as of this encounter Visit Diagnoses Diagnosis Type 2 diabetes (HCC) documented in this encounter Care Teams Team MemberRelationshipSpecialtyStart DateEnd Date Meg Lynn, HYDROPULPER OPERATOR.AIRCRAFT DELIVERY CHECKER [address] [place] [address] PCP - GeneralFamily Elewavsb11/25/24 Wesly Davies MD [address] [place] [address] ReferringGastroenterology07/16/24 Wesly Davies MD [address] [place] [address] PdguzivufNhzziwsvhjrsfwyt41/4/24documented as of this encounter
--- OUTSIDE RECORDS SUMMARY | 2025-09-21 13:22 | XMS_ITS | Clinical Summary ---
Author Organization [facility] Address [address] [place] [address] Care Team Providers Care Mileage Clerk Name Role Phone Meg Lynn MD Primary Care Provider [phone] Allergies Active AllergyReactionsCriticalityNoted DateCommentsCodeineHives,Nausea And Vomiting,MxwzonmXjch12/16/2018OndansetronHives,Nausea And VomitingMedium 11/02/2020 Medications MedicationSigDispense QuantityRefillsLast FilledStart DateEnd DateStatus albuterol sulfate (ProAir RespiClick) 90 mcg/actuation aerosol powdr breath activated 2 puffs, Inhale, q6hr, PRN, # 1 EA, 0 Refill(s), Pharmacy: [address]/25/2024ctive amitriptyline (Elavil) 50 mg tablet Take 1 tablet by mouth at bedtime.01/23/2018Active amLODIPine (Norvasc) 2.5 mg tablet Take 1 tablet by mouth in the morning.10/31/2021ctive atorvastatin (Lipitor) 40 mg tablet Take 1 tablet by mouth in the morning.01/03/2021ctive famotidine (Pepcid) 20 mg tablet Take 1 tablet by mouth in the morning and at bedtime.02/08/2024ctive fenofibrate (Lofibra) 54 mg tablet Take 54 mg by mouth.06/28/2022ctive ferrous sulfate 325 (65 Fe) MG tablet Take 325 mg by mouth with breakfast.11/13/2023ctive fexofenadine (Kirsty) 180 mg tablet Take 1 tablet by mouth at bedtime.10/31/2021ctive pancrelipase, Wck-Jnro-Dgad, (Creon) 36,000-114,000- 180,000 unit capsule,delayed release(DR/EC) capsule Creon 37691 units oral delayed release capsule: TAKE 2 CAPSULES WITH MEALS (3 TIMES A DAY) AND 1 CAPSULE WITH SNACKS (1 DAILY).01/31/2021ctive mepolizumab (Nucala) 100 mg/mL injection Inject 100 mg under the skin every 30 (thirty) days. Next dose 07/03/24Active metFORMIN XR (Glucophage-XR) 500 mg 24 hr tablet Take 1 tablet by mouth with breakfast.11/16/2023ctive montelukast (Singulair) 10 mg tablet 1 tablet Orally Once a day for 30 day(s)01/03/2021ctive tamsulosin (Flomax) 0.4 mg 24 hr capsule Take 1 capsule by mouth in the morning.06/16/2024ctive traMADol ER (Ultram-ER) 100 mg 24 hr tablet Take 100 mg by mouth 1 (one) time each day. 2pm06/15/2023ctive ziprasidone (Geodon) 40 mg capsule Take 40 mg by mouth at bedtime.12/06/2018Active clonazePAM (KlonoPIN) 0.5 mg tablet Take 0.5 mg by mouth in the morning. 2 mg at h.sActive cholecalciferol (Vitamin D-3) 1,250 mcg (50,000 unit) capsule Take 50,000 Units by mouth 1 (one) time per week.11/13/2023ctive prazosin (Minipress) 1 mg capsule Take 1 mg by mouth at bedtime.Active fluticasone furoate-vilanteroL (Breo Elipta) 200-25 mcg/dose inhaler 01/17/2018Active ergocalciferol (Vitamin D-2) 1.25 MG (57286 Units) capsule Take 50,000 Units by mouth every 7 (seven) days.08/15/2021ctive b complex-vitamin c tablet Take 1 tablet by mouth in the morning.Active omeprazole (PriLOSEC) [address] capsule Take 40 mg by mouth before breakfast. Do not crush or chew.Active traMADol (Ultram) 50 mg tablet Take 100 mg by mouth two times daily.Active Social History Tobacco UseTypesPacks/DayYears UsedDateSmoking Tobacco: NeverSmokeless Tobacco: NeverAlcohol UseStandard Drinks/WeekCommentsNot Currently0 (1 standard drink = 0.6 oz pure alcohol)Sex and Gender InformationValueDate RecordedSex Assigned at BirthNot on fileLegal IhpTjuj1305/27/2024 12:21 PM EDTGender IdentityNot on file Sexual OrientationNot on file Last Filed Vital Signs Vital SignReadingTime TakenCommentsBlood Edpwxhoe225/7209 5:25 PM EDT Hfltu4248 5:25 PM CTNIcjlzdlrbpp06.3 ??C (97.3 ??F)06/26/2024 5:25 PM EDTRespiratory Jrlz203106/26/2024 5:25 PM EDTOxygen Fetvflwwnj70%06/26/2024 5:25 PM EDTInhaled Oxygen Concentration--Amwiwd57.8 kg (213 lb 6.5 oz)06/26/2024 1:32 PM TCENfdahx578.8 cm (5' 10 )06/26/2024 1:32 PM EDTBody Mass Index30.62 06/26/2024 1:32 PM EDT Plan of Treatment Health MaintenanceDue DateLast DoneCommentsCT Njieqftvjpjp34/15/1970Diabetes: Hemoglobin A1C1969FIT-DNA1969FOBT1969Medicare Annual Wellness (AWV)1969 5886Bbvtoeymotpgd03/15/1970Diabetes: Retinopathy Vjhcppbyb45/15/1980 Depression Yflahdylt06/15/1982Diabetes: Urine Protein Itaxdjayn86/15/1989 Hepatitis B Vaccines (1 of 3 - 19+ 3-dose series)1988Pneumococcal Vaccine: Pediatrics (0 to 5 Years) and At-Risk Patients (6 to 64 Years) (3 of 3 - PCV20 or PCV21), 07/07/2017, 01/17/2017, Additional history exists Adult Qbifoeo79/6253LJE23/3COVID-19 Vaccine (2024- season)509/, 07/07/2021, 02/01/2021, Additional history existsInfluenza Vaccine (#1)51, 08/13/2023, 06/29/2020, Additional history qacjwaKxgnmkxcwgo37/12/203312/12/2023Colorectal Cancer Lvuiihfdf34/12/2033Zoster PddirblxOdogzilav48/17/2020, 06/05/2020HIB Vaccines Aged OutNo longer eligible based on patient's age to complete this topicHPV VaccinesAged OutNo longer eligible based on patient's age to complete this topic IPV VaccinesAged OutNo longer eligible based on patient's age to complete this topicMeningococcal B VaccineAged OutNo longer eligible based on patient's age to complete this topicMeningococcal VaccineAged OutNo longer eligible based on patient's age to complete this topicRotavirus VaccinesAged OutNo longer eligible based on patient's age to complete this topic Insurance Care Teams Team MemberRelationshipSpecialtyStart DateEnd Meg Lynn MD [address] [place] [address] [facility] - General06/26/24
--- OUTSIDE RECORDS SUMMARY | 2025-09-21 13:22 | XMS_ITS | Clinical Summary ---
Author Organization [facility] Address [address] [place], [place] [id number] Care Team Providers Care White Metal Caster Name Role Phone Wesly Davies MD Unavailable [phone] Wesly Davies MD Unavailable [phone] Meg Lynn APRN.DOWEL STICKER OPERATOR Primary Care Provider Allergies Active AllergyReactionsCriticalityNoted AmrhPtqdatmvOlcqtaqSmchc04/07/2024 OvxdbdtitsoRwlqa32/07/2024 Medications MedicationSigDispense QuantityRefillsLast FilledStart DateEnd DateStatus VENTOLIN HFA 90 mcg/actuation inhaler Inhale 1 Puff as instructed every 6 hours as needed.10/03/2021ctive albuterol (PROVENTIL) 2.5 mg /3 mL (0.083 %) nebulizer solution Use 2.5 mg via nebulizer every 4 hours as needed.07/03/2024ctive ProAir RespiClick 90 mcg/actuation breath activated (albuterol sulfate) 2 puffs, Inhale, q6hr, PRN, # 1 EA, 0 Refill(s), Pharmacy: [address]03/25/2024ctive amitriptyline (ELAVIL) 50 mg tablet Take 1 tablet by mouth daily at bedtime.01/23/2018Active amLODIPine (NORVASC) 2.5 mg tablet Take 1 tablet by mouth once daily.10/31/2021ctive atorvastatin (LIPITOR) 40 mg tablet Take 1 tablet by mouth once daily.01/03/2021ctive azelastine 0.1% nasal spray Use 1 [place] in each nostril two times a day.Active B-complex with vitamin C (ALLBEE WITH C) tablet Take 1 tablet by mouth every morning.Active cholecalciferol, Vitamin D3, (VITAMIN D3) 1,250 mcg (50,000 unit) cap capsule Take 50,000 Units by mouth.11/13/2023ctive clonazePAM (KLONOPIN) 0.5 mg tablet Take 0.5 mg by mouth two times a day as needed.Active omeprazole (PRILOSEC) 40 mg capsule Take 40 mg by mouth once daily.01/03/2021ctive promethazine (PHENERGAN) 25 mg tablet Take 1 tablet by mouth every 6 hours as needed.05/28/2021ctive tamsulosin (FLOMAX) 0.4 mg Take 1 capsule by mouth every morning.Active ziprasidone (GEODON) 40 mg capsule Take 1 capsule by mouth every evening.12/06/2018Active Zinc Gluconate 30 mg tab Take by mouth.Active naloxone 4 mg/actuation nasal spray (NARCAN) Use 4 mg in the nose at bedtime as needed.08/01/2023ctive mepolizumab injection 100 mg (NUCALA) Inject 100 mg subcutaneously once every month.Active fluticasone-vilanterol (BREO ELLIPTA) 200-25 mcg/dose inhaler Inhale 1 Inhalation as instructed once daily.Active XHANCE 93 mcg/actuation nasal spray Use 93 mcg in the nose two times a day.08/17/2021ctive fexofenadine (CHAKA) 60 mg tablet Take 60 mg by mouth every 12 hours.Active Fenofibrate (LOFIBRA) 54 mg tablet Take 1 tablet by mouth once daily.06/28/2022ctive ferrous sulfate 325 mg (65 mg iron) tablet Take 325 mg by mouth once daily.11/13/2023ctive montelukast (SINGULAIR) 10 mg tablet Take 10 mg by mouth once daily.Active Blood-Glucose Meter Indications:Post-pancreatectomy diabetes (HCC)Use to check sugars once a day 1 Each 08/22/2024ctive Lancets Indications:Post-pancreatectomy diabetes (HCC)Use to check sugars once daily 100 Each ctive alcohol swabs (ALCOHOL WIPES) Indications:Post-pancreatectomy diabetes (HCC)Ue up to 8 times a day 800 Each ctive glucose 4 gram chewable tablet Indications:Post-pancreatectomy diabetes (HCC)Take 4 tablets by mouth as needed. 100 tablet ctive prazosin HCl (PRAZOSIN ORAL) Take 1 mg by mouth daily at bedtime.Active acetaminophen (TYLENOL) 325 mg tablet Take 2 tablets by mouth every 6 hours as needed for pain.09/04/2024ctive bisacodyl (DULCOLAX) 10 mg supp 1 Suppository by RECTAL route once daily as needed for constipation.09/04/2024 Active magnesium hydroxide (MOM) 400 mg/5 mL suspension Take 30 mL by mouth once daily as needed for constipation. 210 mL 09/04/2024ctive pantoprazole DR (PROTONIX) 40 mg tablet Take 1 tablet by mouth once daily. 30 tablet ctive polyethylene glycol 3350 17 gram packet Take 1 Packet by mouth once daily as needed for constipation (Second line). Dissolve dose in 4 - 8 ounces of liquid and take as directed. 7 Packet 09/04/2024ctive promethazine (PHENERGAN) 25 mg tablet Indications:NauseaTake 1 tablet by mouth every 8 hours as needed (for nausea). 90 tablet ctive tramadol HCl (TRAMADOL ORAL) Take by mouth.Active BAQSIMI 3 mg/actuation nasal spray Indications:Post-pancreatectomy diabetes (HCC)USE 1 SPRAY IN THE NOSE NEEDED. MAY REPEAT AFTER 15 MINUTES USING A NEW DEVICE IF THERE IS NO RESPONSE. 2 each 5Active insulin lispro (HUMALOG KWIKPEN) 100 unit/mL Indications:Post-pancreatectomy diabetes (HCC)USE UP TO 30 UNITS DAILY 15 mL 5Active insulin lispro (HUMALOG U-100 INSULIN) 100 unit/mL injection Indications:Post-pancreatectomy diabetes (HCC)Use up to 70 units in insulin pump daily 70 mL 5Active blood sugar diagnostic (CONTOUR TEST STRIPS) test strip Indications:Post-pancreatectomy diabetes (HCC)Use to check sugars once daily 100 each 5Active Blood-Glucose Meter (CONTOUR NEXT GEN METER) monitoring kit Indications:Insulin pump status1 each once daily. 90 each 509/6Active insulin glargine (LANTUS SOLOSTAR U-100 INSULIN) 100 unit/mL (3 mL) Inject 25 Units subcutaneously once daily. 15 mL 5Active zmowvv-ueehnbqv-gmgyxam (CREON) 36,000-114,000- 180,000 unit delayed release capsule TAKE 3 CAPSULES BY MOUTH THREE TIMES DAILY BEFORE MEAL(S) . MAX 13 PER 24 HOURS, TAKE 1 ADDITIONAL CAPSULE FOR EVERY SNACK 200 capsule 5Active Insulin [place], Disposable, 31 gauge x / Indications:Post-pancreatectomy diabetes (HCC)USE WITH INSULIN - FIVE TIMES A DAY 500 each 5Active MOUNJARO 2.5 mg/0.5 mL pen injector Indications:Type 2 diabetes (HCC)INJECT 2.5 MG UNDER THE SKIN ONCE WEEKLY 2 mL 5Active tirzepatide (MOUNJARO) 2.5 mg/0.5 mL pen injector Indications:Type 2 diabetes (HCC)Inject 2.5 mg subcutaneously one time a week. 2 mL 5111/22/2024Discontinued Active Problems Patient Care Coordination No te [...] surgical management of chronic pancreatitis. Admitted to [facility] postoperative management. Airway Difficulty: Grade I - [...] at home, tramadol 100 mg - on LOAN SECRETARY with dilaudid 0.2 mg demand bolus 6 [...] transfer out of ICU: none Disposition: SICU ProblemNoted DateDiagnosed DatePrimary hzruykayzspk45/11/2024 Assessment & Plan (09/03/2024 10:35 AM EST): Assessment: Stable on amlodipine PLAN: -Continue amlodipine -Q4hr vitals Assessment & Plan (09/02/2024 7:09 AM EST): Assessment: Stable on amlodipine PLAN: -Continue amlodipine -Q4hr vitals Assessment & Plan (09/01/2024 7:02 AM EST): Assessment: Stable on amlodipine PLAN: -Continue amlodipine -Q4hr vitals Insulin dose uxqnwmv7408/30/2024 Assessment & Plan (09/03/2024 10:36 AM EST): Assessment: Endo following for MDI insulin regimen PLAN: -Appreciate Endo recs Assessment & Plan (09/02/2024 7:10 AM EST): Assessment: Endo following for MDI insulin regimen PLAN: -Appreciate Endo recs Assessment & Plan (09/01/2024 6:58 AM EST): Assessment: Endo following for MDI insulin regimen PLAN: -Appreciate Endo recs Diabetes mellitus secondary to zizmdelymjtmrx40/08/2024 Assessment & Plan (09/03/2024 10:37 AM EST): Assessment: Endo following PLAN: -Appreciate Endo recs Assessment & Plan (09/02/2024 7:10 AM EST): Assessment: Endo following PLAN: -Appreciate Endo recs Assessment & Plan (09/01/2024 6:59 AM EST): Assessment: Endo following PLAN: -Appreciate Endo recs DM type 1 (diabetes mellitus, type 1)08/29/2024 Overview (08/29/2024): S/p total pancreatecomy Assessment & Plan (09/03/2024 10:37 AM EST): Assessment: s/p total pancreatectomy PLAN: -Appreciate Endo recs Assessment & Plan (09/02/2024 7:10 AM EST): Assessment: s/p total pancreatectomy PLAN: -Appreciate Endo recs Assessment & Plan (09/01/2024 6:59 AM EST): Assessment: s/p total pancreatectomy PLAN: -Appreciate Endo recs Acute postoperative pain08/28/2024 Assessment & Plan (09/03/2024 10:37 AM EST): Assessment: s/p total pancreatectomy 08/28 PLAN: -APAP 650mg PO q6hr -Tramadol 100mg PO BID -Dilaudid 0.5mg IV q3hr PRN BTP Assessment & Plan (09/02/2024 7:11 AM EST): Assessment: s/p total pancreatectomy 08/28 PLAN: -Dilaudid LOAN SECRETARY -APAP 650mg PO q6hr -Tramadol 100mg PO BID -Dilaudid 0.5mg IV q3hr PRN BTP -Oxycodone 5mg PO q4hr PRN Assessment & Plan (09/01/2024 7:01 AM EST): Assessment: s/p total pancreatectomy 08/28 PLAN: -Dilaudid LOAN SECRETARY -APAP 650mg PO q6hr -Tramadol 100mg PO BID -Dilaudid 0.5mg IV q3hr PRN BTP -Oxycodone 5mg PO q4hr PRN History of ktmlhmitckvxwq05/07/2024 Assessment & Plan (09/03/2024 10:36 AM EST): See A/P IPMN Assessment & Plan (09/02/2024 7:10 AM EST): See A/P IPMN Assessment & Plan (09/01/2024 6:58 AM EST): See A/P IPMN S/P maxkjtdbgql32/07/2024 Assessment & Plan (09/03/2024 10:35 AM EST): 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 PLAN: -Ensure splenectomy vaccines PTD -Trend WBC Assessment & Plan (09/02/2024 7:09 AM EST): 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 PLAN: -Ensure splenectomy vaccines PTD -Trend WBC Assessment & Plan (09/01/2024 6:55 AM EST): 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 On low-fat pancreatitis diet. History of bowel newdisvlk13/01/2024 Overview (08/22/2024): post trauma Assessment & Plan (08/22/2024 11:42 AM EDT): Post-trauma related to service. Reports frequent bowel movements. Osteoarthritis of right knee08/22/2024ack pain08/22/2024 Overview (08/22/2024): He has severe history of back problems and has a nerve stimulator in place and present for about 4 to 5 years Chronic egdngbvbpetc89/03/2024 Assessment & Plan (08/22/2024 11:05 AM EDT): [...] pancreatectomy without autoislet 08/28/24. GERD (gastroesophageal reflux disease)05/24/2024 Assessment & Plan (09/03/2024 10:36 AM EST): Assessment: Stable on PPI PLAN: -Continue daily PPI Assessment & Plan (09/02/2024 7:10 AM EST): Assessment: Stable on PPI PLAN: -Continue daily PPI Assessment & Plan (09/01/2024 6:58 AM EST): Assessment: Stable on PPI PLAN: -Continue daily PPI Kwqrbgjresrm84/02/2023Trochanteric bursitis of right hip05/29/2023ipolar 1 yslwhwqy68/14/2022 Assessment & Plan (09/03/2024 10:37 AM EST): Assessment: Stable on home geodon PLAN: -Continue geodon 40mg PO daily Assessment & Plan (09/02/2024 7:10 AM EST): Assessment: Stable on home geodon PLAN: -Continue geodon 40mg PO daily Assessment & Plan (09/01/2024 6:59 AM EST): Assessment: Stable on home geodon PLAN: -Continue geodon 40mg PO daily 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 No extrapulmonary manifestations. Posttraumatic stress /06/2020 Assessment & Plan (09/03/2024 10:35 AM EST): Assessment: Stable on antidepressants/anxiolytics PLAN: -Continue home meds Assessment & Plan (09/02/2024 7:09 AM EST): Assessment: Stable on antidepressants/anxiolytics PLAN: -Continue home meds Assessment & Plan (09/01/2024 6:56 AM EST): Assessment: Stable on antidepressants/anxiolytics PLAN: -Continue home meds Severe persistent yjnoep8908/06/2019 Assessment & Plan (09/03/2024 10:35 AM EST): [...] pulmonology. Well controlled, no recent flares. 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 On omeprazole, asymptomatic. Chronic kdoxvil4710/31/2002 Resolved Problems ProblemNoted DateDiagnosed DateResolved DateAcute postoperative respiratory czvqgrugysgfa33 Assessment & Plan (09/03/2024 10:37 AM EST): Assessment: On supplemental O2 PLAN: -OOB/IS/PEP/BPH -Wean supplemental O2 Assessment & Plan (09/02/2024 7:11 AM EST): Assessment: On supplemental O2 PLAN: -OOB/IS/PEP/BPH -Wean supplemental O2 Assessment & Plan (09/01/2024 7:00 AM EST): Assessment: On supplemental O2 PLAN: -OOB/IS/PEP/BPH -Wean supplemental O2 IPMN (intraductal papillary mucinous neoplasm) Assessment & Plan (09/03/2024 10:36 AM EST): [...] antiemetics -F/U pathology ABLA (acute blood loss anemia)/ Assessment & Plan (09/03/2024 10:38 AM EST): Assessment: EBL 800ml PLAN: -Trend CBC -IV iron -Transfuse for Hgb <7 Assessment & Plan (09/02/2024 7:11 AM EST): Assessment: EBL 800ml PLAN: -Trend CBC -IV iron -Transfuse for Hgb <7 Assessment & Plan (09/01/2024 7:01 AM EST): Assessment: EBL 800ml PLAN: -Trend CBC -IV iron -Transfuse for Hgb <7 Type 2 diabetes / Assessment & Plan (09/03/2024 10:34 AM EST): [...] 6.1 01/2024. On insulin and metformin. Encounters DateTypeDepartmentCare GkjfOxkhaytoqse73/30/2025Refill Endocrinology [address] [place] [address] Kathy Bravo MD Refill Dxhgdji5509/16/2025Telephone Endocrinology [address] [place], [place] [phone] Kathy Bravo MD Request For Clinical Notes09/01/2025 Patient Msg Endocrinology [address] [phone] Provider, [facility] Appointment Time Qjqseh4308/12/2025Refill Endocrinology [address] [place] [address] Kathy Bravo MD Refill Louhabc1108/11/2025[facility] General Surgery [address] [place] [phone] Jesus Jacobson MD Refill Request (Creon )08/11/2025 Patient Msg Endocrinology [address] [phone] Kathy Bravo MD Kipjnswy11/17/2025Refill General Surgery [address] [place] [phone] Jesus Jacobson MD Refill Rsfdqif4408/03/2025 Patient Msg Endocrinology [address] [phone] Kathy Bravo MD New Doses08/03/2025Telephone Endocrinology [address] [place] [phone] Kathy Bravo MD Medication Hedhqqv1908/03/2025Telephone Endocrinology [address] [place] [phone] Kathy Bravo MD Request For Clinical Notes07/21/2025Refill Endocrinology [address] [place], [place] [phone] Kathy Bravo MD Refill Jlctntc9107/08/2025Telephone Endocrinology [address] [place] [phone] Kathy Bravo MD Medication Yhycpmn3807/07/2025 7:[address] [facility] Endocrinology [address] [place] [address] Kathy Bravo MD Post-pancreatectomy diabetes (HCC) (Primary Dx); Insulin pump osoyvz9707/07/2025 Get Medical Advice Endocrinology [address] [phone] Kathy Bravo MD Change from OneTouch diabetes meters and test leqvpr4907/06/2025 Get Medical Advice General Surgery [address] [phone] Jesus Jacobson MD Hospital claim form07/02/20251798Hxnsoa13/10/2025Telephone Endocrinology [address] [place] [address] Kathy Bravo MD Request For Clinical Notes06/26/2025Refill Endocrinology [address] [place] [address] Kathy Bravo MD Refill Requestfrom Last 3 Months Immunizations ImmunizationAdministration DatesNext Duediphtheria tetanus pertussis-Haemophilus influenzae b (DTP-Hib) vaccine (TETRAMUNE)08/22/2024meningococcal (MenACWY-TT) vaccine, quadrivalent (MENQUADFI)08/22/2024meningococcal B (MenB-4C) vaccine (BEXSERO)08/22/2024neumococcal conjugate (PCV20) vaccine, 20 valent (PREVNAR 20)08/22/2024 Social History Tobacco UseTypesPacks/DayYears UsedDateSmoking Tobacco: NeverPassive Smoke Exposure: NeverSmokeless Tobacco: Never Tobacco Cessation:Counseling Given: Not Answered Alcohol UseStandard Drinks/WeekCommentsNot Currently0 (1 standard drink = 0.6 oz pure alcohol)[facility] UtilitiesAnswerDate RecordedIn the past 12 months has the [employer] Suite, gas, oil, or water [employer] threatened to shut off services in your home?No08/29/2024Hunger Vital SignAnswerDate RecordedWithin the past 12 months, you worried that your food would run out before you got the money to buymore. Never true08/29/2024Within the past 12 months, the food you bought just didn't last and you didn't have money to get more.Never true08/29/2024RAPARE - TransportationAnswerDate RecordedIn the past 12 months, has lack of transportation kept you from medical appointments or from getting medications?No 08/29/2024In the past 12 months, has lack of transportation kept you from meetings, work, or from getting things needed for daily living?No08/29/2024 Housing Stability Vital SignAnswerDate RecordedIn the last 12 months, was there a time when you were not able to pay the mortgage or rent on time?No08/29/2024In the past 12 months, how many times have you moved where you were living?1 08/29/2024t any time in the past 12 months, were you homeless or living in a long-term (including now)?No08/29/2024rea Deprivation IndexAnswerDate Recorded National Score (1-100), lower number is lower drqg445901/23/2025State Score (1- 10), lower number is lower kdbu05901/23/2025Data from: https://www.neighborhoodatlas.medicine.[facility].edu/. Last address used for oucvdpcmofz[address]01/23/2025Sex and Gender InformationValueDate Recorded Sex Assigned at JvhmzGezr06/05/2025 10:21 AM ESTLegal DihLaay6307/14/2024 4:42 PM EDTGender TnuocgyrJafp95/05/2025 10:21 AM ESTSexual OrientationStraight 12/24/2024 10:21 AM EST Last Filed Vital Signs Vital SignReadingTime TakenCommentsBlood Ehewfdfk709/8104 4:20 PM EDT Nanxr442801/23/2025 4:20 PM MEYRdqicgqlkcj58.4 ??C (97.5 ??F)01/23/2025 3:54 PM EDTRespiratory Xfpp909501/23/2025 4:20 PM EDTOxygen Kzryluknzs90%01/23/2025 4:20 PM EDTInhaled Oxygen Concentration--Qiuknm08.5 kg (193 lb)01/23/2025 3:04 PM EDT Sldzjg306.8 cm (5' 10 )01/23/2025 3:04 PM EDTBody Mass Index27.6904 3:04 PM EDT Plan of Treatment DateTypeDepartmentCare Team (Latest Contact Info)Rwgyinvmlcn02/17/2025 11:20 AM [facility] Endocrinology [address] [place] [address] Kathy Bravo MD [address] [place] [address] per Health MaintenanceDue DateLast DoneCommentsDiabetic Foot Exam 1979Dilated Retinal Exam1979Urine Albumin:Creatinine Ratio1979 Annual PCP Team Chronic Disease Visit1987Depression Ylvbtdgmq83/15/1988HIV Ztoyypluw78/15/1988Hepatitis C Uxtwumsus82/15/1988Hepatitis B Vaccine (1 of 3 - 19+ 3-dose series)1988CT Zbhvtnmlkrfl07/15/2015Cologuard (FIT-DNA) 12/06/20147983Suvuhhlyseu81/15/2015Colorectal Cancer Bnfynhsbr17/15/2015Fecal Occult Blood2014Prostate Cancer Screening Tnlszkzddh36/15/2015Sigmoidoscopy 2014LDL Qfdntcyxcvc14Meningococcal B Vaccine (2 of 5 - Increased Risk Bexsero 3-dose series)Meningococcal Conjugate Vaccine (2 - Risk 2-dose series)/10/2023Medicare Advantage Annual Wellness Visit10/22/20240339WnO1E68/28//ovid-19 Vaccine (5 - 2024- season), 07/07/2021, 02/01/2021, Additional history exists Influenza Vaccine (#1)/, 08/13/2023, 06/29/2020, Additional history existsDTaP,Tdap,Td Vaccine (3 - Td or Tdap)/10/2023, 12/07/2013Shingrix EdjrmvmCugopubzy94/17/2020, 06/05/2020Hib VaccineCompleted 4Pneumococcal Vaccine: 50+Iwgxqztng18/01/2024, 08/06/2017, 07/07/2017, Additional history exists Medical Devices ImplantedTypeAreaManufacturerDevice IdentifierShelf Expiration DateModel / Serial / LotImplantImplantBackDescription:Chest area surgical metal Metal throughout the back (battery lower spine area) Shrap metal in right hip area/r forearm Insurance Care Teams Team MemberRelationshipSpecialtyStart DateEnd Meg Lynn, NATE.DOWEL STICKER OPERATOR [address] [place] [address] PCP - GeneralFamily Xksgwbsa23/25/24 Wesly Davies MD [address] [place] [address] ReferringGastroenterology07/16/24 Wesly Davies MD [address] [place], [place] [address] GgfcqsnpwXfbeobdikzwcebsm86/4/24
--- OUTSIDE RECORDS SUMMARY | 2025-09-21 13:29 | XMS_ITS | CCD ---
Author Organization [facility] Care Team Providers Care Wash Crew Person Name Role Phone LILLIAN REID Primary Care [...] Unavailable JEANETTE, LILLIAN Primary Care Unavailable Gian NATE - Eliana MUSTAFA Primary Care Provid er [...] Attending Unavailable MOGHAL, JOANA N Referring Unavailable GIANELIANA LAWSON Primary Care Unavailable SLIME ROMANO Attending Unavailable ELIANA SPRINGER Referring Unavailable GIAN, ELIANA Palomo Primary Care Unavailable SLIME ROMANO Attending Unavailable ELIANA SPRINGER Referring Unavailable GIAN, ELIANA Palomo Primary Care [...] GIAN, ELIANA Palomo Primary Care Unavailable ANNALISELAURI Admitting Unavailable ANNALISELAURI Attending Unavailable REF PROV, NOT IN SYSTEM Referring Unavaila ble GIAN, ELIANA Palomo Primary Care Unavailable BASISTA, LAURI H Consulting Unavailable GIAN, ELIANA Palomo Referring Unavailable GIAN, ELIANA Palomo Primary Care Unavailable Crisatl Paul Attending Unavailable NAWRLUIS F PARHAM Admitting Unavailable NAWRLUIS F PARHAM Attending Unavailable WESLY DAVIES Referring Unavailable Gian TREASURY CONSULTANT - FLOOR PERSON, Eliana Palomo Primary Care Provid er Samson REARDON, Wesly Crawford Unavailable [phone] Samson REARDON, Wesly Crawford Unavailable Gian TREASURY CONSULTANT.FLOOR PERSON, Eliana Palomo Primary Care Provider Gian TREASURY CONSULTANT-[facility], Eliana Palomo Primary Care Provider ELIEL STEPHENS Attending Unavailable GIAN, ELIANA Palomo Primary Care Unavailable Jm REARDON, Jacqueline Ruiz Attending Marnie Schultz MD, Benoit Nagy Consulting Unavacurly chilel Gian TREASURY CONSULTANT-[facility], Eliana Stacia Primary Care Unava ilnestor Schilling MD, Adelina Consulting Unavailable Wesly Davies Attending Unavailable Gian TREASURY CONSULTANT-FLOOR PERSON, Eliana Palomo Primary Care Unava ilable Gian TREASURY CONSULTANT-[facility], Eliana Palomo Primary Care Unava ilable Rubin REARDON, Stanfordrius Arnold Attending Unavailable Rubin REARDON, Stanfordrius Arnold Attending Unavailable Gian TREASURY CONSULTANT-FLOOR PERSON, Eliana Primary Care Unava ilable Rubin REARDON, Andrius Clayton Attending Unavailable Gian TREASURY CONSULTANT-FLOOR PERSON, [facility] Primary Care Unava ilable Rubin REARDON, Andrius Arnold Attending Unavailable Gian TREASURY CONSULTANT-FLOOR PERSON, [facility] Primary Care Unava ilable Gian TREASURY CONSULTANT-[facility], [facility] Primary Care Unava ilable Rubin REARDON, Andrius Arnold Attending Unavailable Mickie REARDON, Rob Villagomez Attending Unavailable Gian TREASURY CONSULTANT-FLOOR PERSON, Eliana L Primary Care Unava ilable Gian TREASURY CONSULTANT-FLOOR PERSON, Eliana L Primary Care Unava ilable Wesly Davies Attending Unavailable CANDIDO ALEGRE Admitting Unavailable CANDIDO ALEGRE Attending Unavailable LUIS MIRANDA Referring Unavailable GIAN, ELIANA L Primary Care Unavailable BLU ROONEY Consulting Unavailable Gian TREASURY CONSULTANT.FLOOR PERSON, Eliana L Primary Care Provider Unavailable Primary Care Provider UnavailANA LAURA Tsang Attending Unavailable GIAN, ELIANA L Primary Care Unavailable JACOBSON, R KASSIDY Referring Unavailable GIAN, LEIANA L Primary Care Unavailable JACOBSON, R KASSIDY Referring Unavailable GIAN, ELIANA L Primary Care Unavailable KATHY BRAVO Attending Unavailable GIAN, ELIANA L Primary Care Unavailable JACOBSON, R KASSIDY Referring Unavailable GIAN, ELIANA L Primary Care Unavailable JACOBSON, R KASSIDY Referring Unavailable GIAN, ELIANA L Primary Care Unavailable KATHY BRAVO Attending Unavailable GIAN, ELIANA L Primary Care Unavailable JACOBSON, R KASSIDY Attending Unavailable GIAN, ELIANA L Primary Care Unavailable KATHY BRAVO Attending Unavailable GIAN, ELIANA L Primary Care Unavailable JACOBSON, R KASSIDY Referring Unavailable GIAN, ELIANA L Primary Care Unavailable JACOBSON, R KASSIDY Referring Unavailable JHONATAN SUAREZ Attending Unavaila ble GIAN, ELIANA L Primary Care Unavailable KATHY BRAVO Attending Unavailable JACOBSON, R KASSIDY Attending Unavailable JACOBSON, R KASSIDY Admitting Unavailable GIAN, ELIANA L Primary Care Unavailable GERMÁN, MODESTO Referring Unavailable JACOBSON, R KASSIDY Attending Unavailable GIAN, ELIANA L Primary Care Unavailable GIAN, ELIANA L Primary Care Unavailable GIAN, ELIANA L Primary Care Unavailable KATHY BRAVO Attending Unavailable GIAN, ELIANA L Primary Care Unavailable GERMÁN, MODESTO Referring Unavailable KATHY BRAVO Attending Unavailable GIAN, ELIANA L Primary Care Unavailable JACOBSON, R KASSIDY Referring Unavailable REMY FERGUSON Attending Unavailabl e GIAN, ELIANA L Primary Care Unavailable JACOBSON, R KASSIDY Referring Unavailable DIANA HERNÁNDEZ Attending Unavailable GIAN, ELIANA L Primary Care Unavailable DARIUSZ LAMBERT Attending Unavailable GIAN, ELIANA L Referring Unavailable GIAN, ELIANA L Primary Care Unavailable GIAN, ELIANA L Referring Unavailable GIAN, ELIANA L Primary Care Unavailable GIAN, ELIANA L Primary Care Unavailable FARIDA GIBBONS Attending Unavailable GIAN, ELIANA L Primary Care Unavailable DMITRY TIERNEY Attending Unavailable GIAN, ELIANA L Primary Care Unavailable GIAN, ELIANA L Referring Unavailable GIAN, ELIANA L Primary Care Unavailable OCTAVIO CHATTERJEE Referring Unavailable GIAN, ELIANA L Primary Care Unavailable GIAN, ELIANA L Primary Care Unavailable MARILYN ALMONTE Referring Unavailable GIAN, ELIANA L Referring Unavailable GIAN, ELIANA L Primary Care Unavailable GIAN, ELIANA L Referring Unavailable GIAN, ELIANA L Primary Care Unavailable ANN DUMONT Referring Unavailable GIAN, ELIANA L Primary Care Unavailable GIAN, ELIANA L Primary Care Unavailable IACOB, IRVIN Admitting Unavailable IACOB, IRVIN Attending Unavailable SHAHNAZ TOSCANO Consulting Unavailable JESUSITA, OCTAVIO Admitting Unavailable OCTAVIO CHATTERJEE Attending Unavailable GIAN, ELIANA L Primary Care Unavailable GIAN, ELIANA L Primary Care Unavailable JOYCELYN SMITH Attending Unavailable GIAN, ELIANA L Primary Care Unavailable CINTRADMITRY Attending Unavailable GIAN, ELIANA L Primary Care Unavailable GIAN, ELIANA L Referring Unavailable GIAN, ELIANA L Primary Care Unavailable Allergies Allergy ClassificationReported Allergen(s)Allergy TypeDate of OnsetReaction(s) FacilityAcetaminophen / Codeine (2 sources)Acetaminophen / CodeineDrug Naxszkz94-46-2340FcetbQPJ [facility] Hair Extract (2 sources)Cat Hair ExtractDrug Dwtalnf04-76-6398MIV [employer] Work Phone: NSAIDs (2 sources)IbuprofenDrug Ojgoiwy00-13-4777KjowbvddRUE [facility].[place] Ondansetron (2 sources)OndansetronDrug Ziqhbrg17-22-4253UbgdkwslbeeSTV [facility]Am[facility].[place] Opioid Agonists (2 sources)CodeineDrug Tdvedok53-54-0785Xhhuy, Nausea And VomitingBON [employer] Work Phone: (20 sources)Cat Hair ExtractDrug Qzyhqgz20-34-8133VMR [employer] Work Phone: (20 sources)Codeine; Translations: [CODEINE]Drug Nyyttco49-13-0912Nkjes, Nausea And Vomiting, OtherBON [employer] Work Phone: (20 sources)Ondansetron; Translations: [ONDANSETRON HCL]Drug Fsnhakc72-21-3039 Nausea Only, AnaphylaxisBON [facility] (20 sources)Acetaminophen / Codeine; Translations: [ACETAMINOPHEN-CODEINE]Drug Sytqipk53-06-9245Kgbzy, Other (See Comments)BON [facility] (20 sources)Ibuprofen; Translations: [IBUPROFEN]Drug Dttvemq99-95-3338Nbiylaxw, Other (See Comments)[facility] Repository (20 sources)Ondansetron; Translations: [ONDANSETRON]Drug Bqbgicq99-85-2979Hfrpc [facility] Repository (1 source)Cat; Translations: [Cats]Propensity to adverse reactions (disorder) [facility] Repository (1 source)Ondansetron; Translations: [Zofran]Drug AllergyLakehealth [facility] Repository Medications Current Medications MedicationDrug Class(es)DatesSig (Normalized)Sig (Original)amLODIPine 2.5 mg oral tablet (20 sources)Dihydropyridine Calcium Channel BlockerStart: 53-86-4077zgzy 1 tablet by mouth once dailyamLODIPine (NORVASC) 2.5 MG tablet Take 1 tablet by mouth daily 90 tablet 1 08/04/2025 Activeamoxicillin 875 mg / clavulanate 125 mg oral tablet (4 sources)Penicillin-class AntibacterialStart: 05-27-2025 End: 13-26-7385lswb 1 tablet by mouth every twelve hoursamoxicillin-clavulanate (AUGMENTIN) 875-125 MG per tablet Take 1 tablet by mouth every 12 hours for15 doses 15 tablet 05/27/2025 06/04/2025 ActiveStart: 42-31-1322sygh 1 tablet by mouth twice dailyamoxicillin-clavulanate (AUGMENTIN) 875-125 MG per tablet Take 1 tablet by mouth 2 times daily 0 01/25/2024 Activeatorvastatin 40 mg oral tablet (20 sources)HMG-CoA Reductase InhibitorStart: 98-34-0017qwio 1 tablet by mouth once dailyatorvastatin (LIPITOR) 40 mg tablet Take 1 tablet by mouth once daily. 01/03/2021 Activetake 1 tablet by mouth in the morningatorvastatin (Lipitor) 20 MG tablet Take 20 mg by mouth in the morning. Activeazelastine hydrochloride 0.137 mg/actuat metered dose nasal spray (20 sources)Histamine-1 Receptor Antagonisttake 1 spray(s) nasal route twice dailyazelastine 0.1% nasal spray Use 1 [place] in each nostril two times a day. Activeb complex vitamins capsule (20 sources)take 1 capsule by mouth once dailyb complex vitamins capsule Take 1 capsule by mouth daily Suspendedtake 1 capsule by mouth once dailyb complex vitamins capsule Take 1 capsule by mouth daily Activetake 1 capsule by mouth once dailyb complex vitamins capsule Take 1 capsule by mouth daily 0 ActiveB Complex-C (b complex-vitamin c) tablet (1 source)take 1 tablet by mouth in the morningB Complex-C (b complex-vitamin c) tablet Take 1 tablet by mouth in the morning. ActiveB-complex with vitamin C (ALLBEE WITH C) tablet (20 sources)take 1 tablet by mouth once daily in the morningB-complex with vitamin C (ALLBEE WITH C) tablet Take 1 tablet by mouth every morning. Suspended take 1 tablet by mouth once daily in the morningB-complex with vitamin C (ALLBEE WITH C) tablet Take 1 tablet by mouth every morning. ActiveB-complex with vitamin C tablet (13 sources)take 1 tablet by mouth in the morningB-complex with vitamin C tablet Take 1 tablet by mouth in the morning. Suspendedtake 1 tablet by mouth in the morningB-complex with vitamin C tablet Take 1 tablet by mouth in the morning. Activetake 1 tablet by mouth in the morningB-complex with vitamin C tablet Take 1 tablet by mouth in the morning. 0 Activebaclofen 10 mg oral tablet (1 source)gamma-Aminobutyric Acid-ergic AgonistStart: 41-13-0212mcjlilnb (Lioresal) 10 MG tablet 07/09/2025 Activebisacodyl 10 mg rectal suppository (20 sources)Stimulant LaxativeStart: 25-63-4531bvarlnpjz (DULCOLAX) 10 mg supp 1 Suppository by RECTAL route once daily as needed for constipation. 09/04/2024 ActiveBlood-Glucose Meter (20 sources)Start: 91-37-2551Ftdvc-Glucose Meter Indications: Post- pancreatectomy diabetes (HCC) Use to check sugars once a day 1 Each 08/22/2024 SuspendedStart: 20-98-7986Ntgkm-Glucose Meter Indications: Post-pancreatectomy diabetes (HCC) Use to check sugars once a day 1 Each 08/22/2024 Activecalcium chloride 0.0014 meq/ml / potassium chloride 0.004 meq/ml / sodium chloride 0.103 meq/ml / sodium lactate 0.028 meq/ml injectable solution (1 source)Start: 86-37-3125BdikhHKYojk, at 100 mL/hr, CONTINUOUS, Starting on Sun08/25/25 at 0930, Pre-op (day of surgery)cholecalciferol 1.25 mg oral capsule (20 sources)Vitamin DStart: 75-38-3763Bpldtuxbgoufkvk (VITAMIN D3) 1.25 MG (64372 UT) CAPS Indications: Other fatigue Take 1 capsule by mouth once a week Patient takes 1 time weekly on Fridays 12 capsule 3 06/18/2024 ActiveStart: 94-81-3944vwrgselcjmpkmen, Vitamin D3, (VITAMIN D3) 1,250 mcg (50,000 unit) cap capsule Take 50,000 Units by mouth. 11/13/2023 ActiveStart: 11-13-2023 Cholecalciferol (VITAMIN D3) 1.25 MG (43931 UT) CAPS Take 1 capsule by mouth once a week Patient takes 1 time weekly on Fridays 12 capsule 3 11/13/2023 Activetake 1 tablet by mouth in the morningcholecalciferol (Vitamin D-3) 50 MCG (2000 UT) tablet Take 2,000 Units by mouth in the morning. ActiveCholecalciferol (VITAMIN D3) 1.25 MG (17918 UT) CAPS Take by mouth Patient takes 1 time weekly on Fridays 0 ActiveclonazePAM 0.5 mg oral tablet (20 sources)BenzodiazepineStart: 31-76-3708zhqh 1 dose by mouth once1 mg, Oral, Once, 1 dose, On Sun05/30/25 at 2330Start: 11-64-4552obsk 1 dose by mouth once1 mg, Oral, Once, 1 dose, On Sun05/30/25 at 2300Start: 37-43-0343owgl 0.5 mg by mouth once daily0.5 mg, Oral, DAILY, First dose on Sun05/26/25 at 0900, Until DiscontinuedStart: 79-14-1942pbju 2 mg by mouth once daily2 mg, Oral, Nightly, First dose on Sun05/26/25 at 0045, Until DiscontinuedStart: 49-20-8132fpax 1 tablet by mouth once dailyclonazePAM (KlonoPIN) 1 mg tablet Take 1 tablet (1 mg total) by mouth nightly. 05/15/2024 ActiveclonazePAM (KLONOPIN) 1 MG tablet Take 0.5 mg in the morning and 2 mg at bedtime as needed. Activetake 1 tablet by mouth every twelve hours as neededclonazePAM (KLONOPIN) 0.5 mg tablet Take 0.5 mg by mouth two times a day as needed. ActiveclonazePAM (KLONOPIN) 1 MG tablet 2 tablets at bedtime. Activecyclobenzaprine hydrochloride 5 mg oral tablet (2 sources)Muscle RelaxantStart: 12-05-2024 End: 26-35-3651nvpg 1 tablet by mouth twice daily as needed for muscle spasms cyclobenzaprine (FLEXERIL) 5 MG tablet Take 1 tablet by mouth 2 times daily as needed for Muscle spasms 10 tablet 12/05/2024 12/15/2024 Activecyclobenzaprine (Flexeril) 10 MG tablet Take 10 mg by mouth in the morning and 10 mg at noon and 10mg in the evening. Activedicyclomine hydrochloride 20 mg oral tablet (9 sources)AnticholinergicStart: 27-95-9872feby 1 tablet by mouth three times dailydicyclomine (BENTYL) 20 MG tablet Indications: Diarrhea, unspecified type Take 1 tablet by mouth 3 times daily 30 tablet 04/03/2024 Activeergocalciferol 1.25 mg oral capsule (16 sources)Provitamin D2 CompoundStart: 85-92-6853qsvc 1 capsule by mouth every weekvitamin D (ERGOCALCIFEROL) 1.25 MG (79388 UT) CAPS capsule Take 1 capsule by mouth once a week 0 06/17/2023 Activefamotidine 20 mg oral tablet (10 sources)Histamine-2 Receptor AntagonistStart: 64-34-7646cmhr 1 tablet by mouth twice dailyfamotidine (PEPCID) 20 MG tablet Take 1 tablet by mouth 2 times daily 60 tablet 02/08/2024 Activefenofibrate 54 mg oral tablet (20 sources)Peroxisome Proliferator Receptor alpha AgonistStart: 86-53-1626jvnh 1 tablet by mouth once dailyfenofibrate (TRICOR) 54 MG tablet Take 1 tablet by mouth daily [facility] pharmacy: Please dispense generic fenofibrate unless prescriber denote 90 tablet 08/05/2025 Activefexofenadine hydrochloride 180 mg oral tablet (20 sources)Histamine-1 Receptor AntagonistStart: 52-27-2464zdya 1 tablet by mouth at bedtimefexofenadine (CHAKA) 180 MG tablet Take 1 tablet by mouth at bedtime 90 tablet 1 06/18/2024 Activetake 1 tablet by mouth every twelve hours fexofenadine (CHAKA) 60 mg tablet Take 60 mg by mouth every 12 hours. Active take 1 tablet by mouth at bedtimefexofenadine (CHAKA) 180 MG tablet Take 1 tablet by mouth at bedtime 0 Activefluticasone propionate 0.093 mg/actuat metered dose nasal spray (20 sources)CorticosteroidStart: 06-73-1350hoot 1 puff(s) by inhalation in the morningXHANCE 93 mcg/actuation aerosol breath activated Inhale 1 puff in the morning. 04/16/2024 ActiveStart: 48-76-2582YKEJWU 93 mcg/actuation nasal spray Use 93 mcg in the nose two times a day. 08/17/2021 Mzstbs11 actuat fluticasone furoate 0.2 mg/actuat / vilanterol 0.025 mg/actuat dry powder inhaler (20 sources)Corticosteroid, beta2-Adrenergic AgonistStart: 16-73-5541tcjh 1 puff(s) by inhalation in the morningBREO ELLIPTA 200-25 mcg/dose blister with device Inhale 1 puff in the morning and 1 puff before bedtime. 05/06/2024 Active Start: 31-05-5531qsxi 1 puff(s) by mouth once dailyfluticasone furoate- vilanterol (BREO ELLIPTA) 200-25 MCG/ACT AEPB inhaler Take 1 puff by mouth daily 01/17/2018 ActiveStart: 10-97-1200rnmwafpszbl furoate-vilanterol (BREO ELLIPTA) 200-25 MCG/ACT AEPB inhaler 01/17/2018 ActiveStart: 06-63-4825npqr 1 puff(s) by inhalation once dailyfluticasone-vilanterol (BREO ELLIPTA) 100-25 MCG/INH AEPB inhaler 1 puffs, Inhale, Daily, # 30 EA, 11 Refill(s), Pharmacy: [place] [id number] 01/17/2018 Activefluticasone-vilanterol (BREO ELLIPTA) 200-25 mcg/dose inhaler Inhale 1 Inhalation as instructed once daily. Activeglucagon (rdna) 1 mg injection (20 sources)Antihypoglycemic AgentStart: mg, SubCUTAneous, PRN, Starting on Sun05/26/25 at 0626, Until Discontinued, Low blood sugar, Blood glucose LESS THAN 70 mg/dL and patient NOT ALERT or NPO and does not have IV access., After administration, attempt intravenous access and start dextrose 10% at 100 mL/hr. Repeat blood glucose in 15 minutes x 2 and notify provider. Reconstitute powder for injection by adding 1 mL of gas systems worker-supplied sterile diluent or sterile water for injection to a vial containing 1 mg of the drug, to provide solutions containing 1 mg/mL. Shake vial gently to dissolve. Start: 08-22-2024 End: 87-62-8415GBXIFCU 3 mg/actuation nasal spray Indications: Post- pancreatectomy diabetes (HCC) USE 1 SPRAY IN THE NOSE NEEDED. MAY REPEAT AFTER 15 MINUTES USING A NEW DEVICE IF THERE IS NO RESPONSE. 2 each 1 02/17/2025 ActiveGlucose (20 sources)Start: 06-96-3057YypkzXALzed, at 100 mL/hr, CONTINUOUS PRN, if blood glucose remains LESS THAN 70 mg/dL after 2 dextrose 10% intravenous boluses or administration of glucagon, Starting on Sun05/26/25 at 0626, If bloodglucose fails to stabilize after 2 dextrose 10% intravenous boluses or glucagon administration, start dextrose 10% infusion at 100 mL/hour and repeat blood glucose at 30 and 60 minutes. If blood glucose is GREATER THAN 70 mg/dL after 60 minutes, discontinue dextrose 10% infusion.Start: 08-46-1066ouuoffkg bolus 10% 125 mLStart: g (4 tablet), Oral, PRN, Starting on Sun05/26/25 at 0626, Until Discontinued, Low blood sugar, Ifblood glucose is LESS THAN 70 mg/dL and patient is alert and tolerating oral. Give 4 tablets (16g) Repeat blood glucose in 15 minutes. If blood glucose is LESS THAN 70 mg/dL, repeat treatment and recheck blood glucose in 15 minutes x 2. If blood glucose remains LESS THAN 70 mg/dL, notify provider.Start: 50-48-6966uubsrdv 4 gram chewable tablet Indications: Post-pancreatectomy diabetes (HCC) Take 4 tablets by mouth as needed. 100 tablet 1 08/22/2024 Active3 ml insulin glargine 100 unt/ml pen injector (20 sources)Insulin AnalogStart: 48-50-5118Tyxmvs SoloStar 100 UNIT/ML pen Inject 25 Units under the skin in the morning. 08/03/2025 ActiveStart: 09-04-2024 End: 24-13-6749nwxhho 16 [IU] by subcutaneous injection once daily at bedtime insulin glargine 100 unit/mL (3 mL) Inject 16 Units subcutaneously daily at bedtime. 14.4 mL 09/04/2024 ActiveStart: 48-31-0786drmmmuo glargine (LANTUS SOLOSTAR U-100 INSULIN) 100 unit/mL (3 mL) Indications: Post-pancreatectomy diabetes (HCC) Use 20 units daily 15 mL 1 08/22/2024 Suspendedinsulin lispro 100 unt/ml injectable solution (20 sources)Insulin AnalogStart: 04-25-2025 End: 19-16-6124yudlsjx lispro (HUMALOG U-100 INSULIN) 100 unit/mL injection Indications: Post-pancreatectomy diabetes (HCC) Use up to 70 units in insulin pump daily 70 mL 1 07/07/2025 ActiveStart: 82-52-8856wipqsxk lispro (HUMALOG U- 100 INSULIN) 100 unit/mL injection Indications: Post-pancreatectomy diabetes (HCC) Use up to 70 units in insulin pump daily 70 mL 1 10/31/2024 ActiveStart: 09-28-2024 End: 79-01-0524gaznrkb lispro (HUMALOG U-100 INSULIN) 100 unit/mL injection Indications: Post-pancreatectomy diabetes (HCC) Use up to 50 units in insulin pump daily 50 mL 1 09/28/2024 10/31/2024 DiscontinuedStart: 09-04-2024 End: 89-64-7633uhtbsru lispro (HUMALOG KWIKPEN INSULIN) 100 unit/mL Indications: Post-pancreatectomy diabetes (HCC) Inject 3 units three times daily with meals along with the sliding scale with meals and at bedtime: If Blood Glucose (mg/dL) is: Less than 110-Give 0 units 111-150Give 0 units 151-200Give 2 units 201- 250Give 4 units 251-300Give 6 units 301-350Give 8 units 351-400Give 10 units Greater than 400-Give10 units and Notify Provider 15 mL 1 09/04/2024 06/26/2025 DiscontinuedStart: 74-84-9646ydrvfts lispro (HUMALOG KWIKPEN) 100 unit/mL Indications: Post-pancreatectomy diabetes (HCC) USE UPTO 30 UNITS DAILY 15 mL 1 06/26/2025 ActiveInsulin Lispro (HUMALOG IJ) Inject as directed Insulin pump SuspendedInsulin Lispro (HUMALOG IJ) Inject as directed Insulin pump Active isopropyl alcohol 0.7 ml/ml medicated pad (20 sources)Start: 15-86-3115nduxtqq swabs (ALCOHOL WIPES) Indications: Post- pancreatectomy diabetes (HCC) Ue up to 8 times a day 800 Each 1 08/22/2024 Active1 ml ketorolac tromethamine 30 mg/ml cartridge (7 sources)Nonsteroidal Anti-inflammatory Drug, Cyclooxygenase InhibitorStart: 91-09-246840 mg, IntraMUSCular, ONCE, 1 dose, On Sun11/30/24 at 1600, Do not administer for more than 5 days.Start: 02-12-009316 mg, IntraMUSCular, ONCE, 1 dose, On Sun09/05/24 at 2145, Do not administer for more than 5 days.Start: 09-05-2024 End: 24-09-3451girb 1 tablet by mouth every six hours as needed for pain ketorolac (TORADOL) 10 MG tablet Take 1 tablet by mouth every 6 hours as needed for Pain 12 tablet 09/05/2024 ActiveStart: 08-11-2024 End: 12-59-088480 mg, IntraMUSCular, ONCE, 1 dose, On Sun08/11/24 at 1330, Do not administer for more than 5 days.Start: 03-17-2024 End: 22-87-0792zggtpadrz (TORADOL) injection 30 mglevoFLOXacin 500 mg oral tablet (2 sources)Quinolone AntimicrobialStart: 07-31-2025 End: 78-77-2794zjwmRJLLrkej (Levaquin) 500 MG tablet 07/31/2025 Activelidocaine 0.04 mg/mg medicated patch (4 sources)Antiarrhythmic, Amide Local AnestheticStart: 12-05-2024 End: 22-29-8771fazfo 1 dose transdermal route once dailylidocaine 4 % external patch Place 1 patch onto the skin daily 30 patch 12/05/2024 01/04/2025 Active lipase/protease/amylase (CREON ORAL) (13 sources)lipase/protease/amylase (CREON ORAL) Take by mouth. Suspended lipase/protease/amylase (CREON ORAL) Take by mouth. Active lipase/protease/amylase (CREON ORAL) Take by mouth. 0 Activemagnesium hydroxide 80 mg/ml oral suspension (20 sources)Start: 14-35-4927osrq 30 mL by mouth once daily as needed for constipationmagnesium hydroxide (MOM) 400 mg/5 mL suspension Take 30 mL by mouth once daily as needed for constipation. 210 mL 09/04/2024 Active1 ml mepolizumab 100 mg/ml prefilled syringe (20 sources)Interleukin-5 AntagonistStart: 86-36-1058ficqrn 1 mL by subcutaneous injection every 30 daysNUCALA 100 mg/mL syringe Inject 1 mL (100 mg total) under the skin every 30 (thirty) days. 04/28/2024 Activemepolizumab (NUCALA) 100 MG SOLR injection Inject 1 mL into the skin every 30 days Activeinject 100 mg by subcutaneous injection every monthmepolizumab injection 100 mg (NUCALA) Inject 100 mg subcutaneously once every month. Activemepolizumab (NUCALA SUBQ) Inject under the skin. Suspendedmepolizumab (NUCALA SUBQ) Inject under the skin. Activemepolizumab (NUCALA SUBQ) Inject under the skin. 0 Xpxpyr33 hr metFORMIN hydrochloride 500 mg extended release oral tablet (20 sources)BiguanideStart: 08-43-6265sjcl 1 tablet by mouth once daily at breakfastmetFORMIN (GLUCOPHAGE-XR) 500 MG extended release tablet Indications: Type 2 diabetes mellitus without complication, without long-term current use of insulin (HCC) Take 1 tablet by mouth daily (with breakfast) 90 tablet 1 06/18/2024 ActiveStart: 22-89-3329opiq 1 tablet by mouth once daily at breakfast metFORMIN XR (GLUCOPHAGE XR) 500 mg 24 hr tablet Take 1 tablet (500 mg total) by mouth daily with breakfast. 03/23/2024 ActiveStart: 31-25-6324ocik 1 tablet by mouth once daily at breakfastmetFORMIN (GLUCOPHAGE-XR) 500 MG extended release tablet Indications: Prediabetes Take 1 tablet by mouth daily (with breakfast) 90 tablet 0 05/24/2023 ActiveStart: 66-57-4290ywsd 1 tablet by mouth once daily metFORMIN (GLUCOPHAGE) 500 mg tablet Take 1 tablet by mouth once daily. 10/31/2021 Suspendedtake 1 tablet by mouth once daily at breakfastmetFORMIN (FORTAMET) 500 MG (OSM) 24 hr tablet Take 1 tablet (500 mg total) by mouth daily with breakfast. Suspendedmethocarbamol 500 mg oral tablet (2 sources)Muscle RelaxantStart: 11-30-2024 End: 39-62-6804okpy 1 tablet by mouth four times dailymethocarbamol (ROBAXIN) 500 MG tablet Take 1 tablet by mouth 4 times daily for 7 days 28 tablet 06/202512/07/2024 Active1 ml methylPREDNISolone acetate 40 mg/ml injection (1 source)CorticosteroidStart: 08-08-2024 End: 72-72-7335lyscak 1 dose by intramuscular injection once40 mg, IntraMUSCular, ONCE, 1 dose, On Sun08/08/24 at 1415Start: 08-08-2024 End: 55-08-3280ejpzrn 1 dose by intramuscular injection once40 mg, IntraMUSCular, ONCE, 1 dose, On Sun08/08/24 at 1415mirtazapine 7.5 mg oral tablet (4 sources)Start: 99-90-3388pmxf 1 tablet by mouth once dailymirtazapine (REMERON) 7.5 MG tablet Take 1 tablet by mouth nightly 30 tablet 3 06/03/2025 Activemontelukast 10 mg oral tablet (20 sources)Leukotriene Receptor AntagonistStart: 39-11-7189swfi 1 tablet by mouth once dailymontelukast (SINGULAIR) 10 MG tablet Indications: Asthma, unspecified asthma severity, unspecified whether complicated, unspecified whether persistent 1 tablet Orally Once a day for 30 day(s) 90 tablet 1 06/18/2024 ActiveMOUNJARO 2.5 MG/0.5ML SOAJ pen (1 source)Start: 36-69-0658GPSGGGXJ 2.5 MG/0.5ML SOAJ pen Inject 2.5 mg into the skin once a week 08/19/2025 Activenaloxone hydrochloride 40 mg/ml nasal spray (11 sources)Opioid AntagonistStart: 14-94-8905xrsucxst (NARCAN) 4 mg/actuation spray,non-aerosol nasal spray Administer 1 spray (4 mg total) intoalternating nostrils as needed for opioid reversal. 1 each 1 08/01/2023 Activenaloxone (NARCAN) 4 mg/actuation spray,non-aerosol nasal spray (2 sources)Start: 55-74-9697kjorlove (NARCAN) 4 mg/actuation spray,non-aerosol nasal spray Administer 1 spray (4 mg total) intoalternating nostrils as needed for opioid reversal. 1 each 1 08/01/2023 ActiveStart: 24-81-4519vwmzwwys (NARCAN) 4 mg/actuation spray,non-aerosol nasal spray Administer 1 spray (4 mg total) intoalternating nostrils as needed for opioid reversal. 1 each 1 08/01/2023 Suspendednaloxone 0.4 mg in 10 mL sodium chloride syringe (1 source)Start: 13-70-7784OajbsLEVvcr, PRN, Opioid Reversal, Starting on Sun08/25/25 at 1148, PRN if respiratory rate is lessthan 6/min and patient is difficult to arouse then notify physician STAT. Mix 9 mL of sodium chloride 0.9% with 0.4 mg (1 mL) of naloxone (NARCAN) in 10 mL syringe. (Note: dilution is 0.04 mg/mL) Give 0.08 mg (2 mL of special dilution), slow IV push, repeat up to 0.4 mg (10 mL) or until patient is responsive to physical stimulation and respiratory rate is equal to or greater than 6 breaths/min. Continue to observe, if no response within 3 minutes of administration of 0.4 mg (10 mL) total, repeat dose (0.4 mg as administered previously). Concentration 0.04 mg/mL, PACU onlynaloxone 4 mg/actuation nasal spray (NARCAN) (20 sources)Start: 54-26-9042bdnp 4 mg nasal route every twenty-four hours as needednaloxone 4 mg/actuation nasal spray (NARCAN) Use 4 mg in the nose at bedtime as needed. 08/01/2023 SuspendedStart: 34-28-7365iwnd 4 mg nasal route every twenty-four hours as needednaloxone 4 mg/actuation nasal spray (NARCAN) Use 4 mg in the nose at bedtime as needed. 08/01/2023 Active nirmatrelvir/ritonavir 300/100 (PAXLOVID, 300/100,) 20 x 150 MG & 10 x 100MG TBPK (1 source)Start: 01-31-2024 End: 60-48-4785nhsfxjmhsvwu/ritonavir 300/100 (PAXLOVID, 300/100,) 20 x 150 MG & 10 x 100MG TBPK Indications: COVID Take 3 tablets (two 150 mg nirmatrelvir and one 100 mg ritonavir tablets) by mouth every 12 hours for 5 days. 30 tablet 0 01/31/2024 02/05/2024 Activenitroglycerin 0.4 mg sublingual tablet (1 source)Nitrate VasodilatorStart: 20-17-1746vnhhkXVPFRLUW (NITROSTAT) SL tablet 0.4 mgomeprazole 40 mg delayed release oral capsule (20 sources)Proton Pump InhibitorStart: 29-49-3434lyrw 1 capsule by mouth once dailyomeprazole (PRILOSEC) 40 MG delayed release capsule Indications: Gastroesophageal reflux disease without esophagitis 1 capsule 30 minutes before morning meal Orally Once a day 90 capsule 1 11/23/2024tiveoseltamivir 75 mg oral capsule (2 sources)Neuraminidase InhibitorStart: 12-24-2024 End: 60-52-3641ttyc 1 capsule by mouth twice dailyoseltamivir (TAMIFLU) 75 MG capsule Indications: Influenza A Take 1 capsule by mouth 2 times daily for 5 days 10 capsule 12/24/2024 12/29/2024 Activepantoprazole 40 mg delayed release oral tablet (20 sources)Proton Pump InhibitorStart: 09-04-2024 End: 69-88-3856hgqh 1 tablet by mouth once dailypantoprazole DR (PROTONIX) 40 mg tablet Take 1 tablet by mouth once daily. 30 tablet 2 09/04/2024 Active polyethylene glycol 3350 62320 mg powder for oral solution (20 sources)Osmotic LaxativeStart: 89-88-8267Alnvg: 65-39-6653bsuziukhrlvs glycol 3350 17 gram packet Take 1 Packet by mouth once daily as needed for constipation (Second line). Dissolve dose in 4 - 8 ounces of liquid and take as directed. 7 Packet 09/04/2024 Activeprazosin 1 mg oral capsule (20 sources)alpha-Adrenergic BlockerStart: 47-48-1715irmb 1 capsule by mouth once dailyprazosin (MINIPRESS) 1 MG capsule Take 1 capsule by mouth nightly 90 capsule 1 06/18/2024 Activetake 1 mg by mouth once daily at bedtimeprazosin HCl (PRAZOSIN ORAL) Take 1 mg by mouth daily at bedtime. Activepromethazine hydrochloride 25 mg oral tablet (20 sources)PhenothiazineStart: 22-23-1645zubi 1 tablet by mouth every six hours as needed for nauseapromethazine (PHENERGAN) 25 MG tablet Indications: Nausea Take 1 tablet by mouth every 6 hours as needed for Nausea 30 tablet 08/17/2025 ActiveStart: 05-21-2025 End: 90-07-6845Gyxyo: 11-27-2024 End: 02-82-3596mxqi 1 tablet by mouth four times daily as needed for nausea promethazine (PHENERGAN) 25 MG tablet Indications: Nausea Take 1 tablet by mouth 4 times daily as needed for Nausea 20 tablet 11/27/2024 12/04/2024 ActiveStart: 11-27-2024 End: 49-61-4374xmettpeosfvp (PROMETHEGAN) 25 MG suppository Indications: Nausea Place 1 suppository rectally every6 hours as needed for Nausea 24 suppository 11/27/2024 12/04/2024 ActiveStart: 09-30-2024 End: 61-22-3679ckqm 25 mg rectal route every six hours as neededpromethazine (PHENERGAN) 25 mg suppository 1 Suppository by RECTAL route every 6 hours as needed for nausea/vomiting. 60 Suppository 2 09/30/2024 11/14/2024 ActiveStart: 47-19-1820uoud 1 tablet by mouth every eight hours as needed for nausea and nauseapromethazine (PHENERGAN) 25 mg tablet Indications: Nausea Take 1 tablet by mouth every 8 hours as needed (for nausea). 90 tablet 2 09/26/2024 ActiveStart: 98-61-2872LCAIJTRIAHY 25 MG suppositoryStart: 64-41-9789fsha 1 tablet by mouth every six hours as neededpromethazine (PHENERGAN) 25 mg tablet Take 1 tablet by mouth every 6 hours as needed. 05/28/2021 Active5 ml sodium chloride 9 mg/ml injection (11 sources)Start: -40 mL, IntraVENous, EVERY 12 HOURS SCHEDULED (2 times per day), First dose on Sun08/25/25 at 2100, Until Discontinued, For Line Patency: Peripheral IV = 5 mL; Midline or Central Line = 10 mL/lumen.If following IV push medication, administer flush at same rate as the IV push. Flush volume is determined by type of infusion therapy being given. For non- viscous solutions use: Peripheral IV = 5 mL Midline or Central Line = 10 mL/lumen For viscous solutions (i.e. blood components, parenteral nutrition, contrast media, or after obtaining blood sample) use: Peripheral IV = 10 mL Midline or CentralLine = 20 mL/lumen, PACU onlyStart: 93-96-1831JwkjnRFAcof, at 5-250 mL/hr, PRN, if patient receiving piggyback infusions and maintenance fluids are not ordered, Starting on Sun08/25/25 at 1148, For piggyback infusion, administer at same rate as piggyback for a total of 25 mL. Enter 25 mL into dose field and piggyback rate into rate field of order. If piggyback is infusing at a rate less than 100 mL/hr, enter 25 mL into dose field and 100 mL/hr into rate field of order., PACU onlyStart: -40 mL, IntraVENous, PRN, Starting on Sun08/25/25 at 1148, Until Discontinued, Line Care, After every IV [...] IV = 10 mL Midline or Central Line= 20 mL/lumen, PACU onlyStart: 06-18-2025 End: ,000 mL (10.6 mL/kg), IntraVENous, at 2,000 mL/hr, Administer over 30 Minutes, ONCE, On Sun06/18/25 at 1545, For 1 doseStart: -40 mL, IntraVENous, EVERY 12 HOURS SCHEDULED (2 times per day), First dose on Sun05/26/25 at 0900,Until Discontinued, For Line Patency: Peripheral IV = [...] mL Midline or Central Line = 20 mL/lumenStart: 20-53-8137Wyhwa: 05-25-2025 End: 08-15-9404BskzlANMwzc, at 75 mL/hr, CONTINUOUS, Starting on Sun05/26/25 at 0045, For 24 hours, Complete last bag that is running at 24 hours and then saline lock IVStart: 12-05-2024 End: ,000 mL (11.6 mL/kg), IntraVENous, at 2,000 mL/hr, Administer over 30 Minutes, ONCE, On Sun12/05/24 at 1645, For 1 doseStart: 08-05-2024 End: ,000 mL (10.3 mL/kg), IntraVENous, at 983.6 mL/hr, Administer over 61 Minutes, ONCE, On Sun08/05/24 at 1945, For 1 dosesodium chloride flush 0.9 % injection 3 mL (1 source)Start: 02-27-5901glyxxo chloride flush 0.9 % injection 3 mL sulfamethoxazole 800 mg / trimethoprim 160 mg oral tablet (3 sources)Dihydrofolate Reductase Inhibitor Antibacterial, Sulfonamide AntimicrobialStart: 08-17-2025 End: 52-35-4469tuxj 1 tablet by mouth twice dailysulfamethoxazole-trimethoprim (BACTRIM DS;SEPTRA DS) 800-160 MG per tablet Indications: History of d iverticulitis , History of leukocytosis Take 1 tablet by mouth 2 times daily for 10 days 20 tablet 08/17/2025 08/27/2025 ActiveStart: 05-13-2025 End: 78-36-4674xvho 1 tablet by mouth twice dailysulfamethoxazole-trimethoprim (BACTRIM DS;SEPTRA DS) 800-160 MG per tablet Take 1 tablet by mouth 2times daily for 10 days 20 tablet 05/13/2025 05/23/2025 Activetamsulosin hydrochloride 0.4 mg oral capsule (20 sources)alpha-Adrenergic BlockerStart: 10-35-3518btaq 1 capsule by mouth once dailytamsulosin (FLOMAX) 0.4 MG capsule Indications: BPH with obstruction/lower urinary tract symptoms TAKE 1 CAPSULE BY MOUTH DAILY 90 capsule 08/12/2025 ActiveStart: 25-46-3827zkwa 1 capsule by mouth once daily tamsulosin (Flomax) 0.4 MG 24 hr capsule Take 0.4 mg by mouth Daily 08/20/2024 Vvhhmy49 hr traMADol hydrochloride 100 mg extended release oral tablet (20 sources)Opioid AgonistStart: 32-72-6282zybDOFcs ER (Ultram-ER) 100 MG 24 hr tablet 08/05/2025 ActiveStart: 56-55-0218skte 100 mg by mouth twice avfpl417 mg, Oral, 2 TIMES DAILY, First dose on Sun05/26/25 at 0045, Until DiscontinuedStart: 60-49-8697zicm 1-2 tablets by mouth twice daily as neededtraMADoL (ULTRAM) 50 mg tablet Indications: Postlaminectomy syndrome, lumbar region Take 1-2 tabs po bid prn. Fill date 04/09/2024 84 tablet 04/09/2024 ActiveStart: 99-53-6191gktl 1- 2 tablets by mouth twice daily as neededtraMADoL (ULTRAM) 50 mg tablet Indications: Postlaminectomy syndrome, lumbar region Take 1-2 tabs po bid prn. Fill date 04/09/2024 84 tablet 04/09/2024 ActiveStart: 02-29-2024 End: 76-10-1039vzsi 1-2 tablets by mouth twice daily as neededtraMADoL (ULTRAM) 50 mg tablet Indications: Postlaminectomy syndrome, lumbar region Take 1-2 tabs po bid prn. 120 tablet 02/29/2024 04/03/2024 Discontinued (Reorder)Start: 73-60-4298zowx 1-2 tablets by mouth twice daily as neededtraMADoL (ULTRAM) 50 mg tablet Indications: Postlaminectomy syndrome, lumbar region Take 1-2 tabs po bid prn. 120 tablet 02/29/2024 ActiveStart: 01-28-2024 End: 43-81-1862fcvu 1-2 tablets by mouth twice daily as neededtraMADoL (ULTRAM) 50 mg tablet Indications: Postlaminectomy syndrome, lumbar region Take 1-2 tabs po bid prn. 120 tablet 01/28/2024 02/25/2024 Discontinued (Reorder)Start: 27-30-8797dyjm 1-2 tablets by mouth twice daily as neededtraMADoL (ULTRAM) 50 mg tablet Indications: Postlaminectomy syndrome, lumbar region Take 1-2 tabs po bid prn. 120 tablet 0 01/28/2024 ActiveStart: 12-29-2023 End: 52-69-1042jdph 1-2 tablets by mouth twice daily as neededtraMADoL (ULTRAM) 50 mg tablet Indications: Postlaminectomy syndrome, lumbar region Take 1-2 tabs po bid prn. Filldate12/29/23 120 tablet 0 12/29/2023 01/21/2024 Discontinued (Reorder)Start: 38-12-6261vlea 1-2 tablets by mouth twice daily as needed traMADoL (ULTRAM) 50 mg tablet Indications: Postlaminectomy syndrome, lumbar region Take 1-2 tabs po bid prn. Filldate12/29/23 120 tablet 0 12/29/2023 Active Start: 11-29-2023 End: 90-40-7432rhkw 1-2 tablets by mouth twice daily as neededtraMADoL (ULTRAM) 50 mg tablet Indications: Postlaminectomy syndrome, lumbar region Take 1-2 tabs po bid prn. Filldate 11/29/23 120 tablet 0 11/29/2023 12/24/2023 Discontinued (Reorder)Start: 16-21-1682wcxb 1-2 tablets by mouth twice daily as needed traMADoL (ULTRAM) 50 mg tablet Indications: Postlaminectomy syndrome, lumbar region Take 1-2 tabs po bid prn. Filldate 11/29/23 120 tablet 0 11/29/2023 Active Start: 91-90-9428wttv 1-2 tablets by mouth twice daily as neededtraMADoL (ULTRAM) 50 mg tablet Indications: Postlaminectomy syndrome, lumbar region Take 1-2 tabs po bid prn. Filldate 11/29/23 120 tablet 0 11/29/2023 ActiveStart: 10-28-2023 End: 91-69-2780qcuc 1-2 tablets by mouth twice daily as neededtraMADoL (ULTRAM) 50 mg tablet Indications: Postlaminectomy syndrome, lumbar region Take 1-2 tabs po bid prn. Filldate 10/28/22 120 tablet 0 10/28/2023 11/21/2023 Discontinued (Reorder)Start: 16-36-7323deau 1-2 tablets by mouth twice daily as needed traMADoL (ULTRAM) 50 mg tablet Indications: Postlaminectomy syndrome, lumbar region Take 1-2 tabs po bid prn. Filldate 10/28/22 120 tablet 0 10/28/2023 Active Start: 08-31-2023 End: 23-29-0864ntgu 1 tablet by mouth once dailytraMADol (ULTRAM ER) 100 MG extended release tablet Take 1 tablet by mouth daily. Takes at 1400 08/31/2023 05/27/2025 Discontinued (Stop Taking at Discharge)Start: 08-29-2023 End: 03-09-1092ogeUNQpu (ULTRAM) 50 MG tablet Take 2 tablets by mouth 2 times daily as needed for Pain. Takes at 0600 and 1400 08/29/2023 ActiveStart: 08-29-2023 End: 43-47-1646wrri 1-2 tablets by mouth twice daily as neededtraMADoL (ULTRAM) 50 mg tablet Indications: Postlaminectomy syndrome, lumbar region Take 1-2 tabs po bid prn 120 tablet 0 09/30/2023 10/24/2023 Discontinued (Reorder)Start: 06-11-2023 End: 56-24-0835ddwi 1 tablet by mouth once daily as neededtraMADol 100 mg 24 hr tablet Take 100 mg by mouth once daily as needed. 06/15/2023 SuspendedStart: 06-11-2023 End: 59-60-9290ddpv 2 tablets by mouth twice dailytraMADol (ULTRAM) 50 mg tablet Take 2 tablets by mouth two times a day. 06/15/2023 Suspendedtake 1 tablet by mouth once dailytraMADol (ULTRAM ER) 100 MG TB24 extended release tablet Take 1 tablet by mouth daily. Activetramadol HCl (TRAMADOL ORAL) Take by mouth. Active zinc gluconate 30 mg oral tablet (20 sources) End: 34-51-4711Vrqi Gluconate 30 mg tab Take by mouth. Activetake 1 tablet by mouth in the morningzinc gluconate 50 mg tablet Take 1 tablet (50 mg total) by mouth in the morning. Suspended Completed/Discontinued Medications MedicationDrug Class(es)DatesSig (Normalized)Sig (Original)acetaminophen 325 mg oral tablet (20 sources)Start: 08-25-2025 End: 92-00-2353aytt 4000 mg by mouth every twenty-four jfrle907 mg, Oral, ONCE, 1 dose, On Sun08/25/25 at 0930, Maximum dose of acetaminophen is 4000 mg from al l sources in 24 hours., Pre-op (day of surgery)Start: 74-52-7964xynvpnogtpjya (TYLENOL) tablet 650 mgStart: 02-24-2025 End: 73-57-3245mqyb 4000 mg by mouth every twenty-four ypwve208 mg, Oral, ONCE, 1 dose, On Sun02/24/25 at 1245, Maximum dose of acetaminophen is 4000 mg from all sources in 24 hours.Start: 09-05-2024 End: 50-76-1428goas 4000 mg by mouth every twenty-four niitv061 mg, Oral, ONCE, 1 dose, On Sun09/05/24 at 2145, Maximum dose of acetaminophen is 4000 mg from a ll sources in 24 hours.Start: 51-61-1883vqcs 2 tablets by mouth every six hours as neededacetaminophen (TYLENOL) 325 mg tablet Take 2 tablets by mouth every 6 hours as needed for pain. 09/04/2024 Activeacetaminophen 325 mg / HYDROcodone bitartrate 5 mg oral tablet (2 sources)Opioid AgonistStart: 05-25-2025 End: 22-82-4743tzxz 1 tablet by mouth every twenty-four hours1 tablet, Oral, ONCE, 1 dose, On Sun05/25/25 at 2330, Maximum dose of acetaminophen is 4000 mg from all sources in 24 hours.Start: 08-11-2024 End: 33-93-0749SPEWUxglugr-acetaminophen (NORCO) 5-325 MG per tablet Indications: Left-sided chest wall pain , Ribcontusion, left, sequela Take 1 tablet by mouth every 8 hours as needed for Pain (moderate severe) for up to 3 days. Intended supply: 7 days. Take lowest dose possible to manage pain Max Daily Amount: 3 tablets 9 tablet 08/11/2024 08/14/2024 Activeacetaminophen 325 mg / oxyCODONE hydrochloride 5 mg oral tablet (1 source)Opioid AgonistStart: 05-30-2025 End: 17-05-7547blez 1 tablet by mouth every twenty-four hours1 tablet, Oral, ONCE, 1 dose, On 05/30/25 at 2115, Maximum dose of acetaminophen is 4000 mg from all sources in 24 hours.Start: 05-30-2025 End: 80-02-5154iadj 1 tablet by mouth every twenty-four hours1 tablet, Oral, ONCE, 1 dose, On 05/30/25 at 2115, Maximum dose of acetaminophen is 4000 mg from all sources in 24 hours.[id number] 200 actuat albuterol 0.09 mg/actuat metered dose inhaler (20 sources)beta2-Adrenergic AgonistStart: puff, Inhalation, EVERY 4 HOURS PRN, Starting on Sun05/26/25 at 0301, Until Discontinued, Wheezing, Shortness of Breath, Initiate RT Bronchodilator Protocol: Yes - Inpatient Protocol, Substituted for albuterol (PROAIR RESPICLICK)Start: 77-01-8108sjvr 2.5 mg by inhalation every four hours as neededalbuterol (PROVENTIL) 2.5 mg /3 mL (0.083 %) nebulizer solution Use 2.5 mg via nebulizer every 4 hours as needed. 07/03/2024 ActiveStart: 84-36-5395seok 2 puff(s) by inhalation every four hours as needed for wheezingalbuterol (PROVENTIL HFA;VENTOLIN HFA) 90 mcg/actuation inhaler Inhale 2 puffs every 4 (four) hoursas needed for wheezing or shortness of breath. 04/14/2024 ActiveStart: 00-85-0002kffk 2 puff(s) by inhalation every six hours as neededalbuterol sulfate (PROAIR RESPICLICK) 108 (90 Base) MCG/ACT aerosol powder inhalation Indications: Asthma, unspecified asthma severity, unspecified whether complicated, unspecified whether persistent2 puffs, Inhale, q6hr, PRN, # 1 EA, 0 Refill(s), Pharmacy: [facility] [place] [address] 1 each 03/25/2024 ActiveStart: 31-13-9295xvar 2 puff(s) by inhalation every six hours as neededalbuterol sulfate (PROAIR RESPICLICK) 108 (90 Base) MCG/ACT aerosol powder inhalation Indications: Asthma, unspecified asthma severity, unspecified whether complicated, unspecified whether persistent2 puffs, Inhale, q6hr, PRN, # 1 EA, 0 Refill(s), Pharmacy: [facility] 1 each 0 02/06/2024 Active Start: 82-31-9313zkpv 1 puff(s) by inhalation every six hours as neededVENTOLIN HFA 90 mcg/actuation inhaler Inhale 1 Puff as instructed every 6 hours as needed. 10/03/2021 ActiveStart: 32-19-2136gxgr 2 puff(s) by inhalation every six hours as neededalbuterol sulfate (PROAIR RESPICLICK) 108 (90 Base) MCG/ACT aerosol powder inhalation 2 puffs, Inhale, q6hr, PRN, # 1 EA, 0 Refill(s), Pharmacy: [facility] [place] [address] [facility] [address] 1 Inhaler 0 12/13/2018 Activealbuterol 0.833 mg/ml / ipratropium bromide 0.167 mg/ml inhalation solution (2 sources)Anticholinergic, beta2-Adrenergic AgonistStart: 97-65-2785xtky 1 dose by inhalation four times daily1 Dose, Inhalation, 4 TIMES DAILY RESP, First dose (after last modification) on Sun05/26/25 at 0600,Until Discontinued, Initiate RT Bronchodilator Protocol: Yes - Inpatient ProtocolStart: 05-26-2025 End: 36-81-6307acuz 1 dose by inhalation every four hours as needed for wheezing 1 Dose, Inhalation, EVERY 4 HOURS PRN, Starting on Sun05/26/25 at 0016, Until Sun05/26/25 at 0304, Shortness of Breath, Wheezing, Initiate RT Bronchodilator Protocol: Yes - Inpatient Protocolamitriptyline hydrochloride 25 mg oral tablet (20 sources)Tricyclic AntidepressantStart: 94-08-4780wwin 50 mg by mouth once daily at mg, Oral, NIGHTLY, First dose on Sun05/26/25 at 0045, Until Discontinued, at bedtime.Start: 26-22-1089etpr 1 tablet by mouth once daily at bedtimeamitriptyline (ELAVIL) 50 mg tablet Take 1 tablet by mouth daily at bedtime. 01/23/2018 Activetake 1 tablet by mouth at bedtimeamitriptyline (Elavil) 25 MG tablet Take 25 mg by mouth at bedtime ActiveAMLODIPINE BESYLATE, BULK, MISC (12 sources)AMLODIPINE BESYLATE, BULK, MISC by miscellaneous route. Suspended AMLODIPINE BESYLATE, BULK, MISC by miscellaneous route. ActiveAMLODIPINE BESYLATE, BULK, MISC by miscellaneous route. 0 Activeamylase 15500 unt / lipase 5000 unt / protease 63631 unt delayed release oral capsule (20 sources)Start: 35-49-7487asoi 62520 [IU] by mouth three times daily at wszxzsil49,000 Units, Oral, 3 TIMES DAILY WITH MEALS, First dose on Sun05/30/25 at 1745, Until DiscontinuedStart: 07-91-9407enuz 1 dose by mouth once35,000 Units, Oral, ONCE PRN, 1 dose, Starting on Sun05/26/25 at 1155, Until Discontinued, with snackStart: 21-92-485856,000 Units (rounded from 36,000 Units), Oral, 3 TIMES DAILY WITH MEALS, First dose on Sun05/26/25 at 0800, Until Discontinued, Substituted for pancrelipase (CREON).Start: 08-04-2024 fypdrx-mtpjqnry-qcxybqu (CREON 36) 36,000-114,000- 180,000 unit delayed release capsule Take 3 capsby mouth 3 times daily with meals and 1 cap with each snack (2) 330 capsule 11 08/04/2024 ActiveStart: 33-52-8942HPYJQ 36,000-114,000- 180,000 unit capsule,delayed release(DR/EC) Take 2 capsules (72,000 units of l ipase total) by mouth in the morning and 2 capsules (72,000 units of lipase total) at noon and 2 capsules (72,000 units of lipase total) in the evening. Take with meals. TAKE 2 CAPSULES BY MOUTH WITHMEALS AND THEN 1 CAP WITH SNACKS.. 05/10/2024 ActiveStart: 89-78-8441arbg 1 capsule by mouth once daily fhmefb-ewczdtxj-faszmxa (CREON) 15065-397128 units CPEP delayed release capsule Indications: Chronic pancreatitis, unspecified pancreatitis type (HCC) , Medication refill Creon 49127 units oral delayed release capsule: TAKE 2 CAPSULES WITH MEALS (3 TIMES A DAY) AND 1 CAPSULE WITH SNACKS (1 DAILY). 200 capsule 1 02/08/2024 ActiveStart: 47-89-6208tcrv 1 capsule by mouth once daily fagmsv-yspzandn-lxzestj (CREON) 99095-778944 units CPEP delayed release capsule Indications: Chronic pancreatitis, unspecified pancreatitis type (HCC) , Medication refill Creon 12341 units oral delayed release capsule: TAKE 2 CAPSULES WITH MEALS (3 TIMES A DAY) AND 1 CAPSULE WITH SNACKS (1 DAILY). 180 capsule 1 01/03/2024 ActiveStart: 80-36-1014zelq 1 capsule by mouth once daily eutirk-sohyaeid-ekmtcix (CREON) 69289-756361 units CPEP delayed release capsule Indications: Chronic pancreatitis, unspecified pancreatitis type (HCC) , Medication refill Creon 53851 units oral delayed release capsule: TAKE 2 CAPSULES WITH MEALS (3 TIMES A DAY) AND 1 CAPSULE WITH SNACKS (1 DAILY). 180 capsule 0 11/12/2023 ActiveStart: 20-41-5589ouls 1 capsule by mouth three times daily at xfcbtpotrciihu-tsnrinqb-gjmammo (CREON) 88132-067401 units CPEP delayed release capsule Take 1 capsule by mouth 3 times daily (with meals) 180 capsule 0 05/24/2023 Activeaspirin 81 mg chewable tablet (1 source)Platelet Aggregation Inhibitor, Nonsteroidal Anti-inflammatory Drug Start: 03-17-2024 End: 77-15-2667pojtxwe chewable tablet 324 mgazithromycin (ZITHROMAX) 500 mg in sodium chloride 0.9 % 250 mL IVPB (Lhkc1Ldr) (1 source)Start: 05-25-2025 End: 61-77-2862774 mg, IntraVENous, ONCE, 1 dose, On Sun05/25/25 at 2330, Antimicrobial Indications: Pneumonia (CAP), Use 20mm (Blue) Egud1Jpf Adapter Preparation instructions: Attach medication vial to one 20mm (Blue) Epvx2Fkj adapter. Selvin fluid bag with adapter, mix, and administer per order.60 actuat budesonide 0.16 mg/actuat / formoterol fumarate 0.0045 mg/actuat metered dose inhaler (1 source)Corticosteroid, beta2-Adrenergic AgonistStart: 25-44-7687etiq 2 puff(s) by inhalation twice daily2 puff, Inhalation, 2 TIMES DAILY RESP, First dose on Sun05/26/25 at 0045, Until Discontinued, Substituted for Fluticasone- vilanterol (BREO ELLIPTA).cefdinir 300 mg oral capsule (2 sources)Cephalosporin AntibacterialStart: 06-18-2025 End: 73-40-3456zzae 1 capsule by mouth [id number] mg, Oral, ONCE, 1 dose, On Sun06/18/25 at 1830, Antimicrobial Indications: Pneumonia (CAP)Start: 06-18-2025 End: 39-51-3100wili 1 capsule by mouth twice dailycefdinir (OMNICEF) 300 MG capsule Take 1 capsule by mouth 2 times daily for 10 days 20 capsule 06/18/2025 06/28/2025 ActivecefTRIAXone (ROCEPHIN) 1,000 mg in sterile water 10 mL IV syringe (1 source)Start: 05-25-2025 End: 15-60-9316txle 100 mg intravenously once1,000 mg, IntraVENous, ONCE, On Sun05/25/25 at 2330, For 1 dose, Administer as slow IV Push over 5 mins Reconstitute 1 g vials with 9.6 mL of designated diluent to produce a 100 mg/mL solution. cephalexin 500 mg oral capsule (6 sources)Cephalosporin AntibacterialStart: 08-17-2025 End: 63-00-5927obhj 1 capsule by mouth three times dailycephALEXin (KEFLEX) 500 MG capsule Indications: History of diverticulitis , History of leukocytosisTake 1 capsule by mouth 3 times daily for 7 days 21 capsule 08/17/2025 08/24/2025 ExpiredStart: 12-16-2024 End: 47-83-3374equn 1 capsule by mouth three times dailycephALEXin (KEFLEX) 500 MG capsule Indications: Dysuria Take 1 capsule by mouth 3 times daily for 10 days 30 capsule 12/16/2024 12/26/2024 ActiveStart: 11-27-2024 End: 61-22-2334ochy 1 capsule by mouth three times dailycephALEXin (KEFLEX) 500 MG capsule Indications: Dysuria Take 1 capsule by mouth 3 times daily for 10 days 30 capsule 11/27/2024 12/07/2024 Activecetirizine hydrochloride 10 mg oral tablet (1 source)Histamine-1 Receptor AntagonistStart: 10-13-420890 mg, Oral, DAILY, First dose on Sun05/26/25 at 0900, Until Discontinued, Substituted for Fexofenadi ne (CHAKA).dimenhyDRINATE 50 mg oral tablet (1 source)Start: 08-25-2025 End: 55-42-6892mhbi 1 dose by mouth once daily50 mg, Oral, ONCE, 1 dose, On Sun08/25/25 at 0930, Pre-op (day of surgery)doxycycline hyclate 100 mg oral capsule (8 sources)Tetracycline-class DrugStart: 06-18-2025 End: 06-53-8687frzo 1 capsule by mouth ubpi277 mg, Oral, ONCE, 1 dose, On Sun06/18/25 at 1830, Antimicrobial Indications: Pneumonia (CAP), This medication can interact with tube feedings (TF)- obtain MD order to manage. Recommend holding TF for 1 h before and 2 h after dose. Take 1 h before or 2 h after dairy, calcium, iron, magnesium, aluminum or zinc.Start: 06-18-2025 End: 25-51-0623qtim 1 tablet by mouth twice dailydoxycycline hyclate (VIBRA- TABS) 100 MG tablet Take 1 tablet by mouth 2 times daily for 10 days 20 tablet 06/18/2025 06/28/2025 ActiveStart: 05-30-2025 End: 03-03-7507laps 1 capsule by mouth henk759 mg, Oral, ONCE, 1 dose, On 05/30/25 at 2300, Antimicrobial Indications: Pneumonia (CAP), Thismedication can interact with tube feedings (TF)- obtain MD order to manage. Recommend holding TF for 1 h before and 2 h after dose. Take 1 h before or 2 h after dairy, calcium, iron, magnesium, aluminum or zinc.Start: 05-27-2025 End: 92-60-9756hboh 1 capsule by mouth every twelve hoursdoxycycline hyclate (VIBRAMYCIN) 100 MG capsule Take 1 capsule by mouth every 12 hours for 15 doses 15 capsule 05/27/2025 06/04/2025 ActiveStart: 05-27-2025 End: 57-72-8184893 mg, Oral, EVERY 12 HOURS SCHEDULED (2 [...] dose. Take 1 h before or 2 hafter dairy, calcium, iron, magnesium, aluminum or zinc.Start: 07-30-2024 End: 14-71-6285xmqa 1 tablet by mouth twice dailydoxycycline hyclate (VIBRA- TABS) 100 MG tablet Indications: Acute non-recurrent pansinusitis Take 1tablet by mouth 2 times daily for 10 days 20 tablet 07/30/2024 08/09/2024 Active0.4 ml enoxaparin sodium 100 mg/ml prefilled syringe (1 source)Low Molecular Weight HeparinStart: 71-29-5478zlzxap 40 mg by subcutaneous injection once daily40 mg, SubCUTAneous, DAILY, First dose on Sun05/26/25 at 0900, Until Discontinued, Indication of Use: Prophylaxis-DVT/PE famotidine (PEPCID) 20 MG/2ML 20 mg in sodium chloride (PF) 0.9 % 10 mL injection (1 source)Start: 08-25-2025 End: 98-81-605761 mg, IntraVENous, ONCE, 1 dose, On Sun08/25/25 at 0930, Administer over 2 minutes., Pre-op (day of surgery)1 ml fentaNYL 0.05 mg/ml injection (2 sources)Opioid AgonistStart: 01-05-2025 End: 37-66-2520PPBKLJELHKL, X (OR/PROCEDURE) PRN, Starting on Sun01/05/25 at 1508, Until Sun01/05/25 at 1511, IntraprocedureStart: 12-05-2024 End: 82-28-2000wcal 1 dose by mouth every hour50 mcg, IntraVENous, ONCE, 1 dose, On Sun12/05/24 at 1645, If oral and IV narcotics ordered, use oral first and only use IV if oral is ineffective or cannot take oral. Do Not give oral and IV within 1 hour of each other unless specifically ordered.ferrous sulfate 325 mg oral tablet (20 sources)Start: 43-09-7428mvyz 1 dose by mouth every two adaia378 mg, Oral, DAILY WITH LUNCH, First dose (after last modification) on Sun05/27/25 at 1200, Until Discontinued, Separate from Doxycycline by at least 2 hoursStart: 11-13-2023 End: 70-06-6222bqcy 1 tablet by mouth once dailyferrous sulfate 325 mg (65 mg iron) tablet Take 325 mg by mouth once daily. 11/13/2023 Active0.5 ml HYDROmorphone hydrochloride 1 mg/ml prefilled syringe (2 sources)Opioid AgonistStart: .25 mg, IntraVENous, EVERY 5 MIN PRN, 2 doses, Starting on Sun08/25/25 at 1148, Until Discontinued, Pain Moderate (4- 6) OR per patient request for pain score (7-10), For Phase I. If Phase II oral narcotics have been administered in the last 60 minutes, do not administer IV narcotics unless specifically approved by provider., PACU onlyStart: 08-05-2024 End: 02-63-1364fjlw 1 dose by mouth every hour1 mg, IntraVENous, ONCE, 1 dose, On Sun08/05/24 at 1945, If oral and IV narcotics ordered, use oral first and only use IV if oral is ineffective or cannot take oral. Do Not give oral and IV within 1hour of each other unless specifically ordered.iopamidol (ISOVUE-370) 76 % injection 18 mL (1 source)Start: 02-16-2025 End: 53-37-9552kknh 1 dose by mouth once18 mL, Oral, IMG ONCE PRN, 1 dose, Starting on Sun02/16/25 at 1119, Until Sun02/16/25 at 1015, Otheriopamidol (ISOVUE-370) 76 % injection 75 mL (4 sources)Start: 06-18-2025 End: 37-17-8421ovyy 1 dose intravenously once75 mL, IntraVENous, IMG ONCE PRN, 1 dose, Starting on Vashti 06/18/25 at 1654, Until Vashti 06/18/25 at 1704, OtherStart: 02-16-2025 End: 91-14-6680njcu 1 dose intravenously once75 mL, IntraVENous, IMG ONCE PRN, 1 dose, Starting on Sun02/16/25 at 1109, Until Sun02/16/25 at 1115, OtherStart: 12-05-2024 End: 77-59-8487gsuh 1 dose intravenously once75 mL, IntraVENous, IMG ONCE PRN, 1 dose, Starting on Sun12/05/24 at 1717, Until Sun12/05/24 at 1734, OtherStart: 04-23-2024 End: 35-38-9293xeuxnadyd (ISOVUE-370) 76 % injection 75 mLLORazepam 1 mg oral tablet (1 source)BenzodiazepineStart: 05-30-2025 End: 33-72-5724qdpv 1 dose by mouth once1 mg, Oral, ONCE, 1 dose, [place] Sun05/30/25 [place] [address] ml metoclopramide 5 mg/ml prefilled syringe (9 sources)Dopamine-2 Receptor AntagonistStart: mg, IntraVENous, EVERY 6 HOURS PRN, Starting on Sun05/26/25 at 0119, Until Discontinued, Heartburn, IV Push: Max 10 mg over 1-2 minutes.Start: 05-25-2025 End: 98-17-115043 mg, IntraVENous, ONCE, 1 dose, On Sun05/25/25 at 1745, IV Push: Max 10 mg over 1-2 minutes.Start: 09-04-2024 End: 01-23-5574tjwp 1 tablet by mouth three times dailymetoclopramide HCl (REGLAN) 10 mg tablet Take 1 tablet by mouth three times a day for 14 days. 42 tablet 09/04/2024 09/18/2024 ActiveStart: 08-05-2024 End: mg, IntraVENous, ONCE, 1 dose, On Sun08/05/24 at 1945, IV Push: Max 10 mg over 1-2 minutes.5 ml midazolam 1 mg/ml injection (1 source)BenzodiazepineStart: 01-05-2025 End: 54-64-3207FLNRBXBCWMM, X (OR/PROCEDURE) PRN, Starting on Sun01/05/25 at 1508, Until Sun01/05/25 at 1511, Intraprocedure1 ml morphine sulfate 4 mg/ml injection (3 sources)Opioid AgonistStart: 06-18-2025 End: 29-73-2446wzry 1 dose by mouth every hour4 mg, IntraVENous, ONCE, 1 dose, On Vashti 06/18/25 at 1545, If oral and IV narcotics ordered, use oralfirst and only use IV if oral is ineffective or cannot take oral. Do Not give oral and IV within 1 hour of each other unless specifically ordered.Start: 05-25-2025 End: 82-91-6117vhck 1 dose by mouth every hour4 mg, IntraVENous, ONCE, 1 dose, On 05/25/25 at 2000, If oral and IV narcotics ordered, use oral first and only use IV if oral is ineffective or cannot take oral. Do Not give oral and IV within 1 hour of each other unless specifically ordered.Start: 05-25-2025 End: 58-41-6923hiyv 1 dose by mouth every hour4 mg, IntraVENous, ONCE, 1 dose, On Sun05/25/25 at 1745, If oral and IV narcotics ordered, use oral first and only use IV if oral is ineffective or cannot take oral. Do Not give oral and IV within 1 hour of each other unless specifically ordered.NON FORMULARY (19 sources)NON FORMULARY Med Name: Breo Elipta SuspendedNON FORMULARY Med Name: X Melodie SuspendedNON FORMULARY Med Name: Breo Elipta ActiveNON FORMULARY Med Name: X Melodie ActiveNON FORMULARY Med Name: X Melodie 0 ActiveNON FORMULARY Med Name: Breo Elipta 0 Active2 ml orphenadrine citrate 30 mg/ml injection (3 sources)Muscle RelaxantStart: 09-05-2024 End: 64-65-8801nemkej 1 dose by intramuscular injection once60 mg, IntraMUSCular, ONCE, 1 dose, On Sun09/05/24 at 2145Start: 08-08-2024 End: 04-81-3090jpnw 1 tablet by mouth twice dailyorphenadrine (NORFLEX) 100 MG extended release tablet Take 1 tablet by mouth 2 times daily for 10 days 20 tablet 08/08/2024 08/18/2024 ActiveoxyCODONE hydrochloride 5 mg oral tablet (6 sources)Opioid AgonistStart: 08-25-2025 End: 44-78-6505dobj 1 dose by mouth once for pain5 mg, Oral, ONCE PRN, 1 dose, Starting on Sun08/25/25 at 1148, Until Sun08/25/25 at 1235, Pain Moderate (4-6) OR per patient request for pain score (7-10), Pain Severe (7-10), PHASE II, PACU onlyStart: 83-73-6366ckiz 5 mg by mouth every four hours as needed for pain5 mg, Oral, EVERY 4 HOURS PRN, Starting on Sun05/26/25 at 0119, Until Discontinued, Pain Moderate (4-6) OR per patient request for pain score (7-10)Start: 09-05-2024 End: 93-29-9144wect 1 tablet by mouth every eight hours as needed for pain oxyCODONE IR (ROXICODONE) 5 mg immediate release tablet Indications: Acute post- operative pain Take1 tablet by mouth every 8 hours as needed for pain (for pain not relieved by your baseline tramadolregimen and tylenol) for up to 7 days. 21 tablet 09/05/2024 09/12/2024 Activeprochlorperazine 5 mg/ml injectable solution (1 source)PhenothiazineStart: 06-18-2025 End: 91-81-706977 mg, IntraVENous, ONCE, 1 dose, On Vashti 06/18/25 at 1545, If administering IV push, administer at amaximum rate of 5 mg/minute. Patients should remain lying down following administration and be reassessed for relief of nausea and presence of hypotension. Patients should be assisted the first time they get up after administration.regadenoson (LEXISCAN) injection 0.4 mg (1 source)Start: 07-05-2023 End: 64-68-9849hyshoxgjqao (LEXISCAN) injection 0.4 mgtechnetium sestamibi (CARDIOLITE) injection 30 millicurie (1 source)Start: 07-05-2023 End: 73-66-7552sgiandcgcp sestamibi (CARDIOLITE) injection 30 millicurie tetracycline hydrochloride 250 mg oral capsule (12 sources)Tetracycline-class Antimicrobialtetracycline (ACHROMYCIN,SUMYCIN) 250 mg capsule Take 1 capsule (250 mg total) by mouth in the morning and 1 capsule (250 mg total) at noon and 1 capsule (250 mg total) in the evening and 1 capsule (250 mg total) before bedtime. Suspendedvitamin B and C (TOTAL B-C) tablet 1 tablet (1 source)Start: 54-61-8699dipi 1 tablet by mouth once daily1 tablet, Oral, DAILY, First dose on Sun05/26/25 at 0900, Until Discontinuedziprasidone 20 mg oral capsule (20 sources)Atypical AntipsychoticStart: 75-35-8584harz 40 mg by mouth once daily at mg, Oral, NIGHTLY, First dose on Sun05/26/25 at 0045, Until Discontinued, May cause prolongation of QT interval. Take with food.Start: 42-90-5495qeyl 1 capsule by mouth once dailyziprasidone (GEODON) 40 MG capsule Take 1 capsule by mouth nightly 0 2018 Activetake 1 capsule by mouth in the morning, then take 1 capsule by mouth at mealtimeziprasidone (GEODON) 20 mg capsule Take 1 capsule (20 mg total) by mouth in the morning and 1 capsule (20 mg total) in the evening. Take with meals. Suspendedziprasidone (GEODON) injection Inject 1 mL (20 mg total) into the appropriate muscle once. Suspended Problems Active Problems Problem ClassificationProblemDateDocumented DateEpisodic/ChronicAnxiety disorders (20 sources)Posttraumatic stress disorder; Translations: [Post-traumatic stress disorder, unspecified]Onset: 10-31-2002 Resolved: 349181-58-1749XnozwdeXntauo (20 sources)Severe persistent asthma; Translations: [Severe persistent asthma, uncomplicated]Onset: 446685-73-4614SwvspbzCcgzvr of other GI organs; peritoneum (7 sources)History of malignant neoplasm of pancreas; Translations: [Personal history of malignant neoplasm ofpancreas]Onset: 896816-93-3030Jjsxhnft Complications of surgical procedures or medical care (1 source)Postprocedural hypoinsulinemia; 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)]Onset: 44-28-4974NfmjagqHywgtlftld and other anemia (2 sources)Anemia; Translations: [Anemia, unspecified]66-19-7985YctaqypcPowktzed mellitus without complication (20 sources)Type 2 diabetes mellitus without complication; Translations: [Type 2 diabetes mellitus without complications]Onset: 09-04-2022 Resolved: 193562-56-2998PnrgcgtMqbjxyro of white blood cells (1 source)Elevated white blood cell count, unspecified; Translations: [Elevated white blood cell count, unspecified]Onset: 21-76-5531QundeqxExdutnzxj of lipid metabolism (20 sources)Hypertriglyceridemia; Translations: [Pure hyperglyceridemia]Onset: 769129-68-6628WpygmuiLruvorrxbj disorders (20 sources)Gastroesophageal reflux disease; Translations: [Gastro-esophageal reflux disease without esophagitis]Onset: 964414-93-0620DhvagtoRuwuvqcnz hypertension (20 sources)Essential hypertension; Translations: [Essential (primary) hypertension]Onset: 403303-68-8346DjixxvmIyyohshh of upper limb (1 source)Closed fracture of phalanx of index finger; Translations: [Fracture of unspecified phalanx of left index finger, initial encounter for closed fracture]01-99-7839SedfgxhvStelwobobdq of prostate (20 sources)Large prostate ; Translations: [Benign prostatic hyperplasia without lower urinary tract symptoms]Onset: 01-26-2020 Resolved: 467904-63-2210WlaakpuKvspesq and fatigue (4 sources)Fatigue; Translations: [Other fatigue]Onset: EpisodicMood disorders (20 sources)Bipolar I disorder; Translations: [Bipolar disorder, unspecified] Onset: 08-23-2020 Resolved: 239791-07-4097TrnnomrZcnt disorders (3 sources)Mood disorders; Translations: [Depression, unspecified]Onset: Nausea and vomiting (4 sources)Diarrhea and vomiting; Translations: [Vomiting, unspecified]Onset: 795301-73-6901NcbidaklQmiisrxevuy deficiencies (20 sources)Vitamin D deficiency; Translations: [Vitamin D deficiency, unspecified]Onset: 03-04-2018 Resolved: 660559-11-6286UvzrqdiZdxrglhhrysnra (20 sources)Idiopathic osteoarthritis; Translations: [Primary osteoarthritis, unspecified site]Onset: 468828-66-2585MyvlremEzjix and unspecified benign neoplasm (20 sources)Polyp of colon; Translations: [Polyp of colon]53-34-2456Mdogdnqk Other and unspecified benign neoplasm (1 source)Melanocytic nevus of trunk; Translations: [Melanocytic nevi of trunk] 36-60-5322IciorwxtScbyj and unspecified benign neoplasm (1 source)Angiofibroma; 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, unspecified site] 13-01-8208OetoyjwgOxyll diseases of kidney and ureters (3 sources)Other obstructive and reflux uropathy; Translations: [Other obstructive and reflux uropathy]Onset: 43-08-6239FsysxyjlDjkuf gastrointestinal disorders (2 sources)Diarrhea; Translations: [Diarrhea, unspecified]EpisodicOther gastrointestinal disorders (3 sources)History of diverticulitis; Translations: [Personal history of other diseases of the digestive system]25-99-6781UziyychxDpdrw liver diseases (20 sources)Steatosis of liver; Translations: [Fatty (change of) liver, not elsewhere classified]Onset: 980288-65-9713DrdrvcgKgztm liver diseases (1 source)Fatty (change of) liver, not elsewhere classified; Translations: [Fatty liver]Onset: 73-13-9256NpokazlZmxtr lower respiratory disease (1 source)Rib pain; Translations: [Pleurodynia]70-42-4585BkrqtszcZvaek nervous system disorders (1 source)Chronic pain syndrome; Translations: [Chronic pain syndrome]11-30-2023 ChronicOther nutritional; endocrine; and metabolic disorders (20 sources)Obese class I; Translations: [Obesity, Class I, BMI 30-34.9]Onset: 554634-35-9023FocykpwNuqpl screening for suspected conditions (not mental disorders or infectious disease) (20 sources)Other specified abnormal findings of blood chemistry; Translations: [Other abnormal blood chemistry]Onset: 03-25-2018 Resolved: 977494-36-5026YadcwhsdSvkxh skin disorders (1 source)Sebaceous gland hypertrophy; Translations: [Other specified follicular disorders]14-87-4606WivxkvboGxbeiycgwd disorders (not diabetes) (20 sources)Chronic pancreatitis; Translations: [Other chronic pancreatitis] Onset: 733596-92-9492XgzrqirRtruyfpr codes; unclassified (20 sources)History of pancreatectomy; 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]Onset: 088241-23-0171VvspwoiFhnvgvmm codes; unclassified (7 sources)History of Whipple procedure; 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]Onset: 740292-81-9199PcjnfwlOewkztlw codes; unclassified (1 source)Acquired total absence of pancreas; 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)]Onset: 61-20-3532GocxvoiXagrwwig codes; unclassified (20 sources)History of excision of intestinal structure; Translations: [Acquired absence of other specified parts of digestive tract]Onset: EpisodicResidual codes; unclassified (1 source)Pain, unspecified; Translations: [Pain, unspecified]Onset: 05-23-2024 EpisodicResidual codes; unclassified (1 source)Family history of Dong esophagus; Translations: [Family history of other diseases of the digestive system]00-76-8050GyanjjwiBlkpwzmh codes; unclassified (1 source)Other general symptoms and signs; Translations: [Other general symptoms and signs]Onset: 53-53-8075LuhgpmeoHlksfzds codes; unclassified (1 source)Acquired absence of spleen; Translations: [Acquired absence of spleen] Onset: 61-29-9209LsyddsvbWatezxxnaxq; intervertebral disc disorders; other back problems (20 sources)Spondylosis without myelopathy or radiculopathy, thoracic region; Translations: [Postlaminectomy syndrome, not elsewhere classified]Onset: 633696-23-3775FxwpmmySygegybgyhg; intervertebral disc disorders; other back problems (20 sources)Low back pain; Translations: [Low back pain]Onset: 11-23-2022 16-54-5147CojxtccoEueneuh and intentional self-inflicted injury (2 sources)Suicidal ideations; Translations: [Suicidal ideations]Onset: 24-19-8171FeybnztkLtqqaqwe lupus erythematosus and connective tissue disorders (20 sources)Eosinophilic granulomatosis with polyangiitis; 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 [Churg-Eebnezer]]Onset: ChronicUnclassified (1 source)Postlaminectomy syndrome, lumbar region [722.83]Onset: 01-14-2024 Unclassified (1 source)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[facility]); Translations: [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[facility])] Onset: 08-22-2024 Past or Other Problems Problem ClassificationProblemDateDocumented DateEpisodic/ChronicAbdominal pain (20 sources)Epigastric pain; Translations: [Epigastric pain]Onset: 12-05-2024 91-26-5290KoxwpypfLnawi and unspecified renal failure (2 sources)Acute renal failure syndrome; Translations: [Acute kidney failure, unspecified]Onset: 041823-38-8584PmqrflteWooiz posthemorrhagic anemia (20 sources)Acute posthemorrhagic anemia; Translations: [Acute posthemorrhagic anemia]Onset: 08-28-2024 Resolved: 167672-07-7143WjjkmxuhTgsgljz obstructive pulmonary disease and bronchiectasis (20 sources)Bronchitis; Translations: [Bronchitis, not specified as acute or chronic]Onset: 031847-66-2160NpngyyaxYdlyneotgjhtg of surgical procedures or medical care (20 sources)Pulmonary insufficiency following surgery; Translations: [Other postprocedural complications and disorders of respiratory system, not elsewhere classified]Onset: 08-30-2024 Resolved: 849369-81-9216YqkizlzpSwuqdldb mellitus without complication (20 sources)Hyperglycemia; Translations: [Hyperglycemia, unspecified]Onset: 08-21-2019 Resolved: 923925-11-8764JestysmhWimipzquydqdbg and diverticulitis (20 sources)Diverticular disease; Translations: [Diverticulosis of intestine, part unspecified, without perforation or abscess without bleeding]Onset: 01-26-2020 Resolved: 735270-63-8006EpzmyckRmjwvojrfegge symptoms and ill-defined conditions (9 sources)Dysuria; Translations: [Dysuria]Onset: 751445-75-4361Wljsmwag Hemorrhoids (20 sources)Internal hemorrhoids; Translations: [Other hemorrhoids]Onset: 01-26-2020 Resolved: 291912-39-9131JfkrnqjeEswnmccbw (4 sources)Influenza due to Influenza A virus; Translations: [Influenza due to other identified influenza virus with other respiratory manifestations]Onset: 550361-57-8594LgtlrfstFheizbmvs of unspecified nature or uncertain behavior (20 sources)Benign neoplasm of pancreas; 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]Onset: 08-28-2024 Resolved: 470594-62-7310VxvwzubaMtwesqmnthd chest pain (7 sources)Chest pain; Translations: [Chest pain, unspecified]Onset: 12-24-2024 84-47-9427JrjeneaxTqatd aftercare (1 source)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; Translations: [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]Onset: 28-25-7818RhhrqkbvPiani aftercare (20 sources)Insulin dose changed; Translations: [[facility] (current) use of insulin]Onset: 518946-68-5668RnlpfuyhQilth aftercare (12 sources)Admission statuses; Translations: [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]Onset: 717149-61-0800ZudhumeoEdxcp connective tissue disease (20 sources)Trochanteric bursitis of right hip; Translations: [Trochanteric bursitis, right hip]Onset: 876091-53-6496VpcqikaxIhhgk diseases of kidney and ureters (20 sources)Kidney lesion; Translations: [Disorder of kidney and ureter, unspecified] Resolved: 353412-67-5964IwrbhwcaXqnyt gastrointestinal disorders (1 source)Personal history of other diseases of the digestive system; Translations: [Personal history of other diseases of the digestive system]Onset: 81-45-5369AcqasehfQhasu gastrointestinal disorders (1 source)Diarrhea, unspecified; Translations: [Diarrhea, unspecified]Onset: 82-98-3524QayvavaaElbrs lower respiratory disease (20 sources)Disorder of lung; Translations: [Other disorders of lung] Resolved: 051747-06-9270OcgyzdzsLtcpm lower respiratory disease (1 source)Pleurodynia; Translations: [Pleurodynia]Onset: 05-60-3192EtjvhlnrKposo nervous system disorders (20 sources)Acute postoperative pain; Translations: [Other acute postprocedural pain]Onset: 847287-77-5781HaexqybbYjuxg nervous system disorders (1 source)Other acute postprocedural pain; Translations: [Acute postoperative pain]Onset: 51-47-8314JdtuigvkKyjue non-traumatic joint disorders (20 sources)Pain in right knee; Translations: [Pain in joint, lower leg]Onset: 242343-47-7489JrsharcpWnmdz nutritional; endocrine; and metabolic disorders (2 sources)Obesity; Translations: [Other obesity due to excess calories]Onset: 02-04-2018 Resolved: 816109-55-2323TwoyaoqOlswu nutritional; endocrine; and metabolic disorders (20 sources)Obesity caused by energy imbalance; Translations: [Other obesity due to excess calories]Onset: 02-04-2018 Resolved: 633100-34-4440GmqiizcMkink upper respiratory disease (20 sources)Seasonal allergy; Translations: [Other seasonal allergic rhinitis] Resolved: 734047-51-5604TyvggynKngwbrnwlx disorders (not diabetes) (20 sources)Acute on chronic pancreatitis; Translations: [Acute pancreatitis without necrosis or infection, unspecified]Onset: 329699-55-4592Ecmqzsnf Pneumonia (except that caused by tuberculosis or sexually transmitted disease) (11 sources)Right lower zone pneumonia; Translations: [Pneumonia, unspecified organism]Onset: 547338-48-9429HutyhxckPmxlxfff codes; unclassified (20 sources)Presence of other specified devices; Translations: [Other postprocedural status]Onset: [id number] codes; unclassified (20 sources)Pain; Translations: [Pain, unspecified]Onset: 01-26-2020 Resolved: [id number] codes; unclassified (1 source)Acquired absence of other specified parts of digestive tract; Translations: [History of bowel resection]Onset: 30-35-1951RgjnzdqlFqbroru and strains (20 sources)Low back strain; Translations: [Strain of muscle, fascia and tendon of lower back, initial encounter]Onset: [id number] injury; contusion (8 sources)Contusion of left chest wall; Translations: [Contusion of left front wall of thorax, initial encounter]Onset: [id number] Unclassified (20 sources)Onset: Results Test NameValueInterpretationReference RangeFacilityCBC with Auto Differentialon [id number] (Bld) [#/Vol]0.10 10*3/uLBon Secours [facility] Centery Health Basophils/100 WBC (Bld)1 %0 - 2 %[facility] HealthEosinophils (Bld) [#/Vol]0.03 10*3/uLBon Secours Mercy HealthEosinophils/100 WBC (Bld)0 %Low1 - 4 %[facility] HealthErythrocyte distribution width (RBC) [Ratio]13.0 %11.8 - 14.4 %[facility] HealthHematocrit (Bld) [Volume fraction]42.6 %40.7 - 50.3 %[facility] HealthHemoglobin (Bld) [Mass/Vol]13.7 g/dL13.0 - 17.0 g/dLBon Secours Mercy [facility] HospitalImmature granulocytes (Bld) [#/Vol]0.08 10*3/uLBon Secours Mercy HealthImmature granulocytes/100 WBC (Bld)1 %Csnp7N[facility] Centery HealthInterpretation and review of laboratory resultsAbnormalBon Secours Mercy HealthLymphocytes/100 WBC (Bld)22 %Low24 - 43 %[facility] Lymphocytes/100 WBC (Bld)2.23 %[facility]ery [facility] (RBC) [Entitic mass] 28.9 pg25.2 - 33.5 pgBon Secours Mercy [facility] DublinHC (RBC) [Mass/Vol]32.2 g/dL28.4 - 34.8 g/dLBon Secours [facility]ht[facility]ula [facility] Centery [facility] DublinV (RBC) [Entitic vol]89.9 fL82.6 - 102.9 fL [facility] HealthMonocytes/100 WBC (Bld)9 %3 - 12 %[facility] HealthMonocytes/100 WBC (Bld)0.90 %[facility] HealthNeutrophils/100 WBC (Bld)67 %High36 - 65 %[facility] HealthNucleated RBC/100 WBC (Bld) [Ratio]0.0 %0.0 per 100 WBCWinchester Medical CenterPlatelet mean volume (Bld) [Entitic vol]9.4 fL8.1 - 13.5 fLWinchester Medical CenterPlatelets (Bld) [#/Vol] 465 10*3/uLHighBon [facility] HospitalRBC (Bld) [#/Vol]4.74 10*6/uL4.21 - 5.77 m/uLBon [facility] HospitalSegmented neutrophils/100 WBC (Bld)7.04 %[facility]ster Medical CenterWBC other (Bld) [#/Vol]10.4Bon [facility] SystemCBC with Diffon [id number]. Basophil0.10 k/uLNormal0.00-0.20MerOhioHealth Shelby Hospital HospitalComment on above:Performed By: #### IRVING MONTE, CP #### [address] [place] [address] Chef German: Chen Mario.Imm.Granulocyte0.08 k/uLNormal0.00-0.30White HospitalComment on above:Performed By: #### IRVING MONTE, CP #### [address] [place] [address] Chef German: Chen Mario.Neutrophil (Seg)7.04 k/uLNormal1.50-8.10[facility] HospitalComment on above:Performed By: #### IRVING MONTE, CP #### [address] [place], [facility] Chef German: Ziggy Hilario MDBasophils/100 WBC (Bld)1 %Normal0-2MercFisher-Titus Medical Center HospitalComment on above:Performed By: #### IRVING MONTE, CP #### [address] [place] [id number] Chef German: Ziggy Hilario MDEosinophils (Bld) [#/Vol]0.03 10*3/uLNormal 0.00-0.44[facility] HospitalComment on above:Performed By: #### IRVING MONTE, CP #### [address] [place], [place] [address] Chef German: Ziggy Hilario MDEosinophils/100 WBC (Bld)0 %Low1-4MerOhioHealth Shelby Hospital HospitalComment on above:Performed By: #### IRVING MONTE, CP #### [address] [place] [address] Chef German: Ziggy Hilario MDErythrocyte distribution width (RBC) [Ratio]13.0 % Weagjl78.8-14.4MerOhioHealth Shelby Hospital HospitalComment on above:Performed By: #### IRVING MONTE, CP #### [address] [place], [place] [address] Chef German: Ziggy Hilario MDHematocrit (Bld) [Volume fraction]42.6 %Normal 40.7-50.3Mer[facility] Pleasant HospitalComment on above:Performed By: #### IRVING MONTE, CP #### [address] [place] [address] Chef German: Ziggy Hilario MDHemoglobin (Bld) [Mass/Vol]13.7 g/dLNormal 13.0-17.0MerOhioHealth Shelby Hospital HospitalComment on above:Performed By: #### IRVING MONTE, CP #### [address] [place], [place] [address] Chef German: Ziggy Hilario MDImmature granulocytes/100 WBC (Bld)1 %Bsdy2Qzjyq [facility]iffin HospitalComment on above:Performed By: #### IRVING MONTE, CP #### [address] [place], [place] [address] Chef German: Jacki Mariomphocytes (Bld) [#/Vol]2.23 10*3/uLNormal 1.10-3.70White HospitalComment on above:Performed By: #### IRVING MONTE, CP #### [address] [place] [address] Chef German: Jacki Mariomphocytes/100 WBC (Bld)22 %Ltg61-78VailzWhite HospitalComment on above:Performed By: #### IRVING MONTE, CP #### [address] [place] [address] Chef German: NANCY aMrioCH (RBC) [Entitic mass]28.9 smCmdkvo62.2-33.5 White HospitalComment on above:Performed By: #### IRVING MONTE, CP #### [address] [place] [address] Chef German: DARLING MarioC (RBC) [Mass/Vol]32.2 g/dYYibzsi74.4-34.8White HospitalComment on above:Performed By: #### IRVING MONTE, CP #### [address] [place] [address] Chef German: NANCY MarioCV (RBC) [Entitic vol]89.9 dQZjtnuj71.6-102.9 [facility] HospitalComment on above:Performed By: #### IRVING MONTE, CP #### [address] [place] [address] Chef German: NANCY Marioonocytes (Bld) [#/Vol]0.90 10*3/uLNormal0.10-1.20 White HospitalComment on above:Performed By: #### IRVING MONTE, CP #### [address] [place] [address] Chef German: NANCY Marioonocytes/100 WBC (Bld)9 %Normal3-12White HospitalComment on above:Performed By: #### IRVING MONTE, CP #### [address] [place] [address] Chef German: Pee Marioophil (Seg)67 %Cikf97-26GzswzWhite Hospital Comment on above:Performed By: #### IRVING MONTE, CP #### [address] [place], [place] [address]83 Chef German: Ziggy Hilario MDNRILDA Automated0.0 per 100 WBCNormal0.0White HospitalComment on above:Performed By: #### IRVING MONTE, CP #### [address] [place], [place] 100[address]383 Chef German: Yessi Mariotejennie mean volume (Bld) [Entitic vol]9.4 fL Normal8.1-13.5White HospitalComment on above:Performed By: #### IRVING MONTE, CP #### [address] [place] [address] Chef German: SUJATA Mariolateshannan (Bld) [#/Vol]465 10*3/qKIpor317-866Gjupg [facility]iffin HospitalComment on above:Performed By: #### IRVING MONTE, CP #### [address] [place] [address] Chef German: SAAD MarioBC (Bld) [#/Vol]4.74 10*6/uLNormal4.21-5.77MerOhioHealth Shelby Hospital HospitalComment on above:Performed By: #### IRVING MONTE, CP #### [address] [place], [place] [address]83 Chef German: MILTON MarioBC (Bld) [#/Vol]10.4 10*3/uLNormal3.5-11.3Mer[facility] Pleasant HospitalComment on above:Performed By: #### IRVING MONTE, CP #### [address] [place] [address] Chef German: BRITNI Marioomp Metabolic Profon 08-17-0848Rxngcll [Mass/Vol] 4.7 g/dLNormal3.5-5.2Mer[facility] Pleasant HospitalComment on above:Performed By: #### IRVING MONTE, CP #### [address] [place] [address] Chef German: Ziggy Hilario MDAlbumin/Glob Ratio1.2Nhkvfv1.0-2.5Mer[facility] Ple[facility] HospitalComment on above:Performed By: #### IRVING MONTE, CP #### [address] [place] [address] Chef German: Tsering Mariokaline Xsiw334 U/UZyxfxa43-765Buyzt [facility]in HospitalComment on above:Performed By: #### IRVING MONTE, CP #### [address] [place] [address] Chef German: Ziggy Hilario MDALT [Catalytic activity/Vol]40 U/KUqklgx75-82Rmpmm [facility] HospitalComment on above:Performed By: #### IRVING MONTE, CP #### [facility] [address] [place] [address] [place] [address] Chef German: Ziggy Hilario MDAnirupert gap [Moles/Vol]12 mmol/LNormal9-16[facility] HospitalComment on above:Performed By: #### IRVING MONTE, CP #### [address] [place] [address] Chef German: Ziggy Sturtz, MDAST [Catalytic activity/Vol]44 U/TArpbyy13-43IhazxWhite HospitalComment on above:Performed By: #### IRVING MONTE, CP #### [address] [place] [address] Chef German: Ziggy Hilario MDBilirubin [Mass/Vol]0.2 mg/dLNormal0.00-1.20[facility] HospitalComment on above:Performed By: #### IRVING MONTE, CP #### [address] [place] [address] Chef German: Ziggy Hilario MDBUN/CRE Lmgrb25Bfqdio1-94Mhqst [facility] Comment on above:Performed By: #### IRVING MONTE, CP #### [address] [place], [place] 237[address]83 Chef German: BRITNI Marioalcium [Mass/Vol]9.9 mg/dLNormal8.6-10.4MerOhioHealth Shelby Hospital HospitalComment on above:Performed By: #### IRVING MONTE, CP #### [address] [place] [address] Chef German: BRITNI Mariohloride [Moles/Vol]99 mmol/LSkxiwh71-109TijuoWhite HospitalComment on above:Performed By: #### IRVING MONTE, CP #### [address] [place] [address] Chef German: Ziggy Hilario MDCO2 [Moles/Vol]27 mmol/MTeyvsh44-99Crjtx [facility] HospitalComment on above:Performed By: #### IRVING MONTE, CP #### [address] [place], [place] [address]183 Chef German: BRITNI Marioreatinine [Mass/Vol]1.2 mg/dLNormal0.70-1.20White HospitalComment on above:Performed By: #### IRVING MONTE, CP #### [address] [place] [address] Chef German: Ziggy Hilario MDGFR/1.73 sq M.predicted among non-blacks MDRD (S/P/Bld) [Vol rate/Area]74 mL/min/{1.73_m2}Normal>60White Hospital Comment on above:Result Comment: These results are not intended for [...] or following therapy that affects renal tubular secretion.Performed By: #### IRVING MONTE, CP #### [address] [place], [facility]83 Chef German: Ziggy Hilario MDGlucose [Mass/Vol]123 mg/jEWuji01-57WeigaWilson Memorial HospitalComment on above:Performed By: #### IRVING MONTE, CP #### [address] [place], [facility] Chef German: SUJATA Mariootassium [Moles/Vol]4.4 mmol/LNormal3.7-5.3MAdena Regional Medical Center HospitalComment on above:Performed By: #### IRVING MONTE, CP #### [address] [place], [facility] Chef German: Ziggy Hilario MDProtein [Mass/Vol]7.5 g/dLNormal6.6-8.7White HospitalComment on above:Performed By: #### IRVING MONTE, CP #### [address] [place] [address] Chef German: Ziggy Hilario MDSodium [Moles/Vol]138 mmol/DHnkdxu707-117Vqtak Point Pleasant HospitalComment on above:Performed By: #### IRVING MONTE, CP #### [facility] [address] [place] [address] Chef German: Ziggy Hilario MDUrea nitrogen [Mass/Vol]12 mg/dLNormal6-20White HospitalComment on above:Performed By: #### IRVING MONTE, CP #### [facility] [address] [place] [address] Chef German: Ziggy Hilario [facility] PAWHUSKAomprehensive Metabolic Panelon [id number] [Mass/Vol]4.7 g/dL3.5 - 5.2 g/dLBon [facility] HospitalAlbumin/Globulin [Mass ratio]1.7 {ratio}1.0 - 2.5Bon [facility] HealthALP [Catalytic activity/Vol] 108 U/L40 - 129 U/LBon [facility] HealthALT [Catalytic activity/Vol]40 U/L10 - 50 U/LBon [facility] HospitalAnion gap [Moles/Vol]12 mmol/L9 - 16 mmol/LBon [facility] HealthAST [Catalytic activity/Vol]44 U/L10 - 50 U/LBon [facility] HealthBilirubin [Mass/Vol]0.2 mg/dL0.00 - 1.20 mg/dLBon [facility] HealthCalcium [Mass/Vol]9.9 mg/dL8.6 - 10.4 mg/dLBon [facility] Chloride [Moles/Vol]99 mmol/L98 - 107 mmol/LBon [facility] HealthCO2 [Moles/Vol]27 mmol/L20 - 31 mmol/LBon [facility] HospitalCreatinine [Mass/Vol] 1.2 mg/dL0.70 - 1.20 mg/dLBon [facility] HealthEst, Glom Filt Rate74- PINFBon [facility] HospitalComment on above: These results are not intended [...] therapy that affects renal tubular secretion. Glucose [Mass/Vol]123 mg/kXYfei75 - 99 mg/dLBon [facility] Interpretation and review of laboratory resultsAbnormalWinchester Medical Center Potassium [Moles/Vol]4.4 mmol/L3.7 - 5.3 mmol/LBon [facility] HospitalProtein [Mass/Vol]7.5 g/dL6.6 - 8.7 g/dLBon [facility] HospitalSodium [Moles/Vol]138 mmol/L136 - 145 mmol/LBon [facility] HospitalUrea nitrogen [Mass/Vol]12 mg/dL6 - 20 mg/dLBon [facility] HospitalUrea nitrogen/Creatinine [Mass ratio]10 mg/mg9 - 20Bon [facility] Screeningon 08-19-2025 Prostate specific Ag [Mass/Vol]2.54 ng/mL0.00 - 4.00 ng/mLWinchester Medical CenterComment on above:The Gwyn ECLIA assay is used. Results obtained with different assay methods cannot be used interchangeably. [facility], Screeningon [id number] Spec. Ag2.54 ng/mL Normal0.00-4.00White HospitalComment on above:Result Comment: The Gwyn ECLIA assay is used. Results obtained with different assay methods cannot be used interchangeably.Performed By: #### CMPX, CDP #### [facility] [address] [place] [address] [place] [address] Chef German: Keo Mario [id number] Clinic ClevelandS.pneumo Ab 23 Seroon 08-03-2025S.pneum InterpSee NoteNormalWhite HospitalComment on above:Result Comment: (NOTE) INTERPRETIVE INFORMATION: Streptococcus pneumoniae Antibodies, IgG A [...] Clin Vaccine Immunol. 2014;21(7):982-988. 2. Divya DOMINGUEZ, Denis PAT. Use and clinical interpretation of pneumococcal antibody measurements in the evaluation of humoral immune function. Clin Vaccine Immunol. 2015;22(2):148-152. This test was developed and its performance characteristics determined by [facility]. It has not been cleared or approved by the U.S. Food and Drug Administration. This test was performed in a CLIA-certified laboratory and is intended for clinical purposes. Performed By: [facility] [address] [place] [id number] Mannequin Decorator: Ernie Orellana MD, PhD CLIA Number: [id number] By: #### IRVING MONTE, CP #### [address] [place] [address] Chef German: PIEDAD Mario.pneum type 1,IgG2.91 ug/mLNormalMercy Point Pleasant HospitalComment on above:Performed By: #### IRVING MONTE, CP #### [address] [place] [address] Chef German: PIEDAD Mario.pneum type 10A,IgG1.97 ug/mLNormalMercy Point Pleasant HospitalComment on above:Performed By: #### IRVING MONTE, CP #### [address] [place] [address] Chef German: PIEDAD Mario.pneum type 11A,IgG1.71 ug/mLNormalMercy Point Pleasant HospitalComment on above:Performed By: #### IRVING MONTE, CP #### [address] [place] [address] Chef German: PIEDAD Mario.pneum type 12F,IgG>20.50NormalMercy Point Pleasant HospitalComment on above:Performed By: #### IRVING MONTE, CP #### [address] [place] [address] Chef German: PIEDAD Mario.pneum type 14,IgG14.85 ug/mLNormalMercy Point Pleasant HospitalComment on above:Performed By: #### IRVING MONTE, CP #### [address] [place] [address] Chef German: PIEDAD Mario.pneum type 15B,IgG>27.72NormalMercy Point Pleasant HospitalComment on above:Performed By: #### IRVING MONTE, CP #### [address] [place], [place] [address]83 Chef German: PIEDAD Mario.pneum type 17F,IgG1.11 ug/mLNormalMercy Point Pleasant HospitalComment on above:Performed By: #### IRVING MONTE, CP #### [facility] [address] [place] [address] [place] [address] Chef German: PIEDAD Mario.pneum type 18C,IgG5.54 ug/mLNormalMercy Point Pleasant HospitalComment on above:Performed By: #### IRVING MONTE, CP #### [address] [place] [address] Chef German: PIEDAD Mario.pneum type 19A,IgG8.30 ug/mLNormalMercy Point Pleasant HospitalComment on above:Performed By: #### IRVING MONTE, CP #### [address] [place] [address] Chef German: PIEDAD Mraio.pneum type 19F,IgG11.81 ug/mLNormalMercy Point Pleasant HospitalComment on above:Performed By: #### IRVING MONTE, CP #### [address] [place] [address] Chef German: PIEDAD Mario.pneum type 2,IgG1.07 ug/mLNormalMercy Point Pleasant HospitalComment on above:Performed By: #### IRVING MONTE, CP #### [address] [place] [address] Chef German: PIEDAD Mario.pneum type 20,IgG1.92 ug/mLNormalMercy Point Pleasant HospitalComment on above:Performed By: #### IRVING MONTE, CP #### [address] [place] [address] Chef German: PIEDAD Mario.pneum type 22F,IgG0.49 ug/mLNormalMercy Point Pleasant HospitalComment on above:Performed By: #### IRVING MONTE, CP #### [address] [place] [address] Chef German: PIEDAD Mario.pneum type 23F,IgG1.03 ug/mLNormalMercy Point Pleasant HospitalComment on above:Performed By: #### LAVELL, CDP, CP #### [address] [place] [address] Chef German: PIEDAD Mario.pneum type 3,IgG1.26 ug/mLNormalMercy Point Pleasant HospitalComment on above:Performed By: #### LAVELL, CDP, CP #### [address] [place] [address] Chef German: PIEDAD Mario.pneum type 33F,IgG4.32 ug/mLNormalMercy Point Pleasant HospitalComment on above:Performed By: #### IRVING MONTE, CP #### [address] [place] [address] Chef German: PIEDAD Mario.pneum type 4,IgG2.33 ug/mLNormalMercy Point Pleasant HospitalComment on above:Performed By: #### IRVING MONTE, CP #### [address] [place] [address] Chef German: PIEDAD Mario.pneum type 5,IgG5.68 ug/mLNormalMercy Point Pleasant HospitalComment on above:Performed By: #### LAVELL CDP, CP #### [address] [place] [address] Chef German: PIEDAD Mario.pneum type 6B,IgG0.94 ug/mLNormalMercy Point Pleasant HospitalComment on above:Performed By: #### LAVELL CDP, CP #### [address] [place] [address] Chef German: PIEDAD Mario.pneum type 7F,IgG3.73 ug/mLNormalMercy Point Pleasant HospitalComment on above:Performed By: #### LAVELL CDP, CP #### [address] [place] [address] Chef German: PIEDAD Mario.pneum type 8,IgG0.70 ug/mLNormalWhite HospitalComment on above:Performed By: #### IRVING MONTE, CP #### [address] [place], [place] [address]83 Chef German: PIEDAD Mario.pneum type 9N,IgG2.10 ug/mLNormalWhite HospitalComment on above:Performed By: #### IRVING MONTE, CP #### [address] [place], [place] 6252[address] Chef German: PIEDAD Mario.pneum type 9V,IgG3.28 ug/mLNormalWhite HospitalComment on above:Performed By: #### IRVING MONTE, CP #### [address] [place], [place] [address]83 Chef German: BRITNI Marioult,Urineon [id number],UrineSpecimen Description .CLEAN CATCH URINE Special Requests Site: Urine Culture NO GROWTH Report Status FINAL 08/01/2025NormalWhite HospitalComment on above: Performed By: #### CMPX, IRVING #### [address] [place], [place] 2234183 Chef German: Ziggy Hilario MDC-Reactive Proteinon [id number] High sensitivity method [Mass/Vol]mg/L0.0 - 5.0 mg/LBon [facility] Health SystemCRP [Mass/Vol]mg/LNormal0.0-5.0White HospitalComment on above:Performed By: #### IRVING MONTE, CP #### [address] [place], [place] 117[address]83 Chef German: BRITNI MarioBC with Auto Differentialon [id number] (Bld) [#/Vol]0.12 10*3/uLBon Secours Mercy HealthBasophils/100 WBC (Bld)1 %0 - 2 %Winchester Medical CenterEosinophils (Bld) [#/Vol]0.06 10*3/uLBon [facility]ours [facility] HospitalEosinophils/100 WBC (Bld)1 %1 - 4 %W[facility]ster Medical CenterErythrocyte distribution width (RBC) [Ratio]13.2 %11.8 - 14.4 %[facility] Hematocrit (Bld) [Volume fraction]40.9 %40.7 - 50.3 %[facility] Hemoglobin (Bld) [Mass/Vol]13.0 g/dL13.0 - 17.0 g/dLBon [facility] Immature granulocytes (Bld) [#/Vol]0.06 10*3/uLBon [facility] HospitalImmature granulocytes/100 WBC (Bld)1 %Buin4LfrWinchester Medical CenterInterpretation and review of laboratory resultsAbnormalWinchester Medical CenterLymphocytes/100 WBC (Bld)23 %Low24 - 43 %[facility]ster Medical CenterLymphocytes/100 WBC (Bld)2.72 %[facility] CenterH (RBC) [Entitic mass]28.8 pg25.2 - 33.5 pgRiverside Behavioral Health CenterHC (RBC) [Mass/Vol]31.8 g/dL28.4 - 34.8 g/dLBon [facility] HospitalV (RBC) [Entitic vol]90.5 fL82.6 - 102.9 fLWinchester Medical Center Monocytes/100 WBC (Bld)9 %3 - 12 %[facility] Medical CenterMonocytes/100 WBC (Bld)1.06 %[facility] Medical CenterNeutrophils/100 WBC (Bld)65 %36 - 65 %[facility] Medical CenterNucleated RBC/100 WBC (Bld) [Ratio]0.0 %0.0 per 100 WBCWinchester Medical CenterPlatelet mean volume (Bld) [Entitic vol]9.0 fL8.1 - 13.5 fL [facility] HealthPlatelets (Bld) [#/Vol]423 10*3/uLBon SecPrem[facility] Health [facility] Hospital SouthRBC (Bld) [#/Vol]4.52 10*6/uL4.21 - 5.77 m/uLBon [facility] Segmented neutrophils/100 WBC (Bld)7.80 %Bon [facility] HospitalWBC other (Bld) [#/Vol]11.8HighBon [facility] HospitalBon [facility] HospitalCB with Diffon [id number]. Basophil0.12 k/uLNormal0.00-0.20[facility] HospitalComment on above:Performed By: #### IMMS, IGE #### [address] [address] Chef German: Reno Duron MD #### CDP, CRP, SED #### [address] [place] [id number] Chef German: Ziggy Hilario MD #### [id number] #### [facility] [address] [place], [place] [id number] Chef German: Chen Live.Imm.Granulocyte0.06 k/uLNormal0.00-0.30[facility] HospitalComment on above:Performed By: #### IMMS, IGE #### [facility] [address] [place] [address] Chef German: Reno Duron MD #### CDP, CRP, SED #### [address] [place] [id number] Chef German: Ziggy Hilario MD #### [id number] #### [facility] [address] [place], [place] [id number] Chef German: Chen Live.Neutrophil (Seg)7.80 k/uLNormal1.50-8.10[facility] HospitalComment on above:Performed By: #### IMMS, IGE #### [address] [address] Chef German: Reno Duron MD #### CDP, CRP, SED #### [address] [place], [place] [address]83 Chef German: Ziggy Hilario MD #### [id number] #### [facility] [address] [place] [address] Chef German: Saw Zhu MDBasophils/100 WBC (Bld)1 %Normal0-2Mer[facility] Pleasant HospitalComment on above:Performed By: #### IMMS, IGE #### [address] [address] Chef German: Reno Duron MD #### CDP, CRP, SED #### [address] [place], [place] [id number] Chef German: Ziggy Hilario MD #### [id number] #### [facility] [address] [place] [address] Chef German: Saw Zhu MDEosinophils (Bld) [#/Vol]0.06 10*3/uLNormal 0.00-0.44Mer[facility]atchaug HospitalComment on above:Performed By: #### IMMS, IGE #### [address] [address] Chef German: Reno Duron MD #### CDP, CRP, SED #### [address] [place], [place] [address]83 Chef German: Ziggy Hilario MD #### [id number] #### [facility] [address] [place] [address] Chef German: BLAIR Liveosinophils/100 WBC (Bld)1 %Normal1-4Mer[facility] HospitalComment on above:Performed By: #### IMMS, IGE #### [address] [address] Chef German: Reno Duron MD #### CDP, CRP, SED #### [address] [place], [place] [address]83 Chef German: Ziggy Hilario MD #### [id number] #### [facility] [address] [place] [address] Chef German: Saw Zhu MDErythrocyte distribution width (RBC) [Ratio]13.2 %Wdnoed54.8-14.4[facility] HospitalComment on above:Performed By: #### IMMS, IGE #### [address] [id number] Chef German: Reno Duron MD #### CDP, CRP, SED #### [address] [place] [address] Chef German: Ziggy Hilario MD #### [id number] #### [facility] [address] [place], [place] [id number] Chef German: Saw Zhu MDHematocrit (Bld) [Volume fraction]40.9 %Normal 40.7-50.3Mer[facility] Point Pleasant HospitalComment on above:Performed By: #### IMMS, IGE #### [address] [address] Chef German: Reno Duron MD #### CDP, CRP, SED #### [address] [place], [place] [id number] Chef German: Ziggy Hilario MD #### [id number] #### [facility] [address] [place], [place] [id number] Chef German: Saw Zhu MDHemoglobin (Bld) [Mass/Vol]13.0 g/dLNormal 13.0-17.0[facility] HospitalComment on above:Performed By: #### IMMS, IGE #### [address] [address] Chef German: Reno Duron MD #### CDP, CRP, SED #### [address] [place], [place] [address]83 Chef German: Ziggy Hilario MD #### ASPN23 #### [facility] [address] [place] [address] Chef German: Saw Zhu MDImmature granulocytes/100 WBC (Bld)1 %Xbcg1Khtxv [facility]asant HospitalComment on above:Performed By: #### IMMS, IGE #### [address] [address] Chef German: Reno Duron MD #### CDP, CRP, SED #### [address] [place] [id number] Chef German: Ziggy Hilario MD #### ASPN23 #### [facility] [address] [place] [address] Chef German: Saw Zhu MDLymphocytes (Bld) [#/Vol]2.72 10*3/uLNormal 1.10-3.70Mercy [facility]atchaug HospitalComment on above:Performed By: #### IMMS, IGE #### [address] [address] Chef German: Reno Duron MD #### CDP, CRP, SED #### [address] [place], [place] 607[address]83 Chef German: Ziggy Hilario MD #### ASPN23 #### [facility] [address] [place] [address] Chef German: Saw Zhu MDLymphocytes/100 WBC (Bld)23 %Yni87-93Etycg [facility]asant HospitalComment on above:Performed By: #### IMMS, IGE #### [facility] [place] [address] Chef German: Reno Duron MD #### CDP, CRP, SED #### [address] [place], [place] [address]783 Chef German: Ziggy Hilario MD #### ASPN23 #### [facility] [address] [place] [address] Chef German: NANCY LiveCH (RBC) [Entitic mass]28.8 woHgweiv06.2-33.5 White HospitalComment on above:Performed By: #### IMMS, IGE #### [address] [address] Chef German: Reno Duron MD #### CDP, CRP, SED #### [address] [place], [place] 453[address]83 Chef German: Ziggy Hilario MD #### ASPN23 #### [facility] [address] [place], [place] [id number] Chef German: DARLING LiveC (RBC) [Mass/Vol]31.8 g/uWYwfjkw64.4-34.8 White HospitalComment on above:Performed By: #### IMMS, IGE #### [address] [address] Chef German: Reno Duron MD #### CDP, CRP, SED #### [address] [place] [address] Chef German: Ziggy Hilario MD #### ASPN23 #### [facility] [address] [place] [address] Chef German: NANCY LiveCV (RBC) [Entitic vol]90.5 nGFupufo19.6-102.9 [facility] Hospitalment on above:Performed By: #### IMMS, IGE #### [address] [address] Chef German: Reno Duron MD #### CDP, CRP, SED #### [address] [place], [place] 7[address]83 Chef German: Ziggy Hilario MD #### ASPN23 #### [facility] [address] [place] [address] Chef German: Saw Zhu MDMonocytes (Bld) [#/Vol]1.06 10*3/uLNormal 0.10-1.20White HospitalComment on above:Performed By: #### IMMS, IGE #### [address] [address] Chef German: Reno Duron MD #### CDP, CRP, SED #### [address] [place], [place] 567[address]83 Chef German: Ziggy Hilario MD #### ASPN23 #### [facility] [address] [place] [address] Chef German: Saw Zhu MDMonocytes/100 WBC (Bld)9 %Normal3-12[facility] Hospitalcy [place] HospitalComment on above:Performed By: #### IMMS, IGE #### [address] [address] Chef German: Reno Duron MD #### CDP, CRP, SED #### [address] [place], [place] 46[address]83 Chef German: Ziggy Hilario MD #### ASPN23 #### [facility] [address] [place] [address] Chef German: Saw Zhu MDNeutrophil (Seg)65 %Uujxkv95-49Ceudm [facility] HospitalComment on above:Performed By: #### IMMS, IGE #### [facility] [address] [place] [address] Chef German: Reno Duron MD #### CDP, CRP, SED #### [address] [place], [place] 1242983 Chef German: Ziggy Hilario MD #### ASPN23 #### [facility] [address] [place] [address] Chef German: Saw Zhu MDNRBC Automated0.0 per 100 WBCNormal0.0White HospitalComment on above:Performed By: #### IMMS, IGE #### [address] [address] Chef German: Reno Duron MD #### CDP, CRP, SED #### [address] [place] [address] Chef German: Ziggy Hilario MD #### ASPN23 #### [facility] [address] [place] [address] Chef German: Tatiana Live mean volume (Bld) [Entitic vol]9.0 fL Normal8.1-13.5White HospitalComment on above:Performed By: #### IMMS, IGE #### [facility] [address] [place] [address] Chef German: Reno Duron MD #### CDP, CRP, SED #### [address] [place] [address] Chef German: Ziggy Hilario MD #### ASPN23 #### [facility] [address] [place] [address] Chef German: Gina Live (Bld) [#/Vol]423 10*3/uTVhdbwt267-140 White HospitalComment on above:Performed By: #### IMMS, IGE #### [facility] [address] [place] [address] Chef German: Reno Duron MD #### CDP, CRP, SED #### [address] [place], [place] 7653383 Chef German: Ziggy Hilario MD #### ASPN23 #### [facility] [address] [place] [address] Chef German: TIERRA Live (Bld) [#/Vol]4.52 10*6/uLNormal4.21-5.77White HospitalComment on above:Performed By: #### IMMS, IGE #### [address] [address] Chef German: Reno Duron MD #### CDP, CRP, SED #### [address] [place], [place] 4160783 Chef German: Ziggy Hilario MD #### ASPN23 #### [facility] [address] [place] [address] Chef German: ANN Live (Nick) [#/Vol]11.8 10*3/uLHigh3.5-11.3MWilson Memorial HospitalComascension providence hospital on above:Performed By: #### IMMS, IGE #### [facility] [address] [place] [address] Chef German: Reno Duron MD #### CDP, CRP, SED #### [address] [place] [address] Chef German: Ziggy Hilario MD #### ASPN23 #### [facility] [address] [place] [address] Chef German: Saw Zhu MDIgEon 41-31-2819SrN Qn88 [IU]/LBon [facility] SystemImmunoglobulin Luis 97-64-4385Ockziyyrauvwml E88 IU/mLNormal0-100[facility] HospitalComment on above:Performed By: #### IRVING MONTE, CP #### [address] [place], [place] 836[address]83 Chef German: Ziggy Hilario MDImmunoglobulin Panel (IgG, IgA, IgM)on 07-31-2025 IgA [Mass/Vol]306 mg/dL70 - 400 mg/dLBon [facility] HospitalIgG [Mass/Vol]813 mg/dL700 - 1600 mg/dLBon [facility] HospitalIgM [Mass/Vol]54 mg/dL40 - 230 mg/dLBon [facility] SystemImmunoglobulinson 06-85-5369HkZ [Mass/Vol]306 mg/hECmxwcr12-116Mfdju [facility]in HospitalComment on above:Performed By: #### IRVING MONTE, CP #### [address] [place], [place] 0739583 Chef German: Ziggy Hilario MDIgG [Mass/Vol]813 mg/wVLwmmti451-8994Ubdrp [facility]in HospitalComment on above:Performed By: #### IRVING MONTE, CP #### [address] [place], [place] 5880783 Chef German: Ziggy Hilario MDIgM [Mass/Vol]54 mg/xWEgvlim09-081ExdjdWhite HospitalComment on above:Performed By: #### IRVING MONTE, CP #### [address] [place] [address] Chef German: PIEDAD Marioedimentation Rateon 76-34-3483MBC Photometric method (Bld) [Velocity]1Bon [facility] Sedimentation Rate1 mm/HrNormal0-20[facility] HospitalComment on above: Performed By: #### LAVELL, CDP, CP #### [facility] [address] [place] [address] Chef German: Ziggy Hilario MDUrinalysis w/ Microon 40-58-9940Heyzwjtuc, SemiQt,UrNegativeNormalNEGMercy Point Pleasant HospitalComment on above:Performed By: #### PRCAL #### [address] [address] Chef German: Reno Duron MDBlood, UrineNegativeNormalNEGWhite HospitalComment on above:Performed By: #### PRCAL #### [address] [address] Chef German: BRITNI Allenlarity (U)ClearNormalCLEARWhite Hospital Comment on above:Performed By: #### PRCAL #### [address] [address] Chef German: BRITNI Allenolor (U)YellowNoalYGeorgetown Behavioral Hospital Comment on above:Performed By: #### PRCAL #### [address] [address] Chef German: Reno Duron MDEpithelial cells LM Ql (Urine sed)NoneNormal0-5 White HospitalComment on above:Performed By: #### PRCAL #### [facility] [employer] [address] [place] [address] Chef German: Reno Duron MDGlucose Ql (U)NegativeNormalNEGWhite HospitalComment on above:Performed By: #### PRCAL #### [address] [address] Chef German: Reno Duron MDKetones Ql (U)NegativeNormalNEGMerNatchaug HospitalComment on above:Performed By: #### PRCAL #### [address] [address] Chef German: Reno Duron MDLeukocyte esterase Test strip Ql (U)Negative NormalNEGWhite HospitalComment on above:Performed By: #### PRCAL #### [address] [address] Chef German: Reno Duron MDNitrite,UrNegativeNormalNEGWhite Hospital Comment on above:Performed By: #### PRCAL #### [address] [address] Chef German: SUJATA Allen,Ur7.7Dzhich1.0-9.0[facility] Comment on above:Performed By: #### PRCAL #### [address] [address] Chef German: SUJATA Allenrotein Ql (U)NegativeNormalNEGWhite HospitalComment on above:Performed By: #### PRCAL #### [address] [address] Chef German: PIEDAD Allenpec. Allison,Ur<1.906Lcu7.010-1.020White HospitalComment on above:Performed By: #### PRCAL #### [address] [address] Chef German: Rosita Allen RBC'sNoneNormal0-2[facility] medical centery [facility] Comment on above:Performed By: #### PRCAL #### [address] [address] Chef German: Rosita Allen WBC's0 TO 5Dbdyfx1-4PixipWhite Hospital Comment on above:Performed By: #### PRCAL #### [address] [address] Chef German: Reno Duron MDUrobilinogen,UrNormalNormal0.0-1.0White HospitalComment on above:Performed By: #### PRCAL #### [facility] [address] [place], [place] [id number] Chef German: Reno Duron MDUrinalysis with Microscopicon 07-31-2025 Bilirubin Ql (U)NegativeNEGATIVEBon Secours Mercy HealthClarity (U)ClearClearBon Secours Mercy HealthColor (U)YellowYellowBon Secours Mercy HealthEpithelial cells LM.HPF (Urine sed) [#/Area]NoneBon Secours Mercy HealthGlucose Test strip (U) [Mass/Vol]NegativeNEGATIVE mg/dLBon Secours Mercy HealthHemoglobin Auto test strip Ql (U)NegativeNEGATIVEBon Secours Mercy HealthInterpretation and review of laboratory resultsAbnormalBon Secours Mercy HealthKetones (U) [Mass/Vol] NegativeNEGATIVE mg/dLBon Secours Mercy HealthLeukocyte esterase Test strip Ql (U)NegativeNEGATIVEBon Secours Mercy HealthNitrite Ql (U)NegativeNEGATIVEBon Secours Mercy HealthpH (U)7.0 [pH]5.0 - 9.0[facility] HealthProtein (U) [Mass/Vol]NegativeNEGATIVE mg/dLBon Secours Mercy HealthRBC LM.HPF (Urine sed) [#/Area]NoneBon Secours Mercy HealthSpecific gravity (U) [Rel density]Low1.010 - 1.020Bon [facility] HealthUrobilinogen Qn (U)Normal0.0 - 1.0 EU/dLBon Secours Mercy HealthWBC LM.HPF (Urine sed) [#/Area]0 TO 2[facility]cy HealthBon Secours [facility] Medical Centery HealthCult, Bloodon [id number], BloodSpecimen Description .BLOOD Special Requests 20ML RIGHT FOREARM Culture NO GROWTH 5 DAYS Report Status FINAL 07/28/2025NormMercy Health Tiffin HospitalComment on above: Performed By: #### PRCAL #### [facility] [address] [place], [place] 699[address] Chef German: BRITNI Allenult,Bloodon 02-28-7334Udvm,BloodSpecimen Description .BLOOD Special Requests 20ML LEFT AC Culture NO GROWTH 5 DAYS Report Status FINAL 07/28/2025NormalMercy Point Pleasant HospitalComment on above: Performed By: #### CMPX, CDP #### [facility] [address] [place] [address] [place] [address] Chef German: SAAD Marioesp Viral Panelon 61-67-3577WjbttrxrtaPzq detectedNormalNOTDETMAdena Regional Medical Center HospitalComment on above:Performed By: #### CMPX, CDP #### [facility] [address] [place] [address] [place] [address] Chef German: Mattie Mario.parapertussisNot detectedNormalNOTDETMAdena Regional Medical Center HospitalComment on above:Performed By: #### CMPX, CDP #### [facility] [address] [place] [address] [place] [address] Chef German: Alida Mariotella pertussisNot detectedNormalNOTDETMAdena Regional Medical Center HospitalComment on above:Performed By: #### CMPX, CDP #### [facility] [address] [place] [address] [place] [address] Chef German: Roberth Mariod.pneumoniaeNot detectedNormalNOTDETMAdena Regional Medical Center HospitalComment on above:Performed By: #### CMPX, CDP #### [facility] [address] [place] [address] [place] [address] Chef German: Ruy Marioavirus 229ENot detectedNormalNOTDETMAdena Regional Medical Center HospitalComment on above:Performed By: #### CMPX, CDP #### [facility] [address] [place] [address] Dr[place], [place] [address]83 Chef German: BRITNI Mariooronavirus XWZ5Bec detectedNormalNOTDETMAdena Regional Medical Center HospitalComment on above:Performed By: #### CMPX, CDP #### [facility] [address] [place] [address] [place] [address] Chef German: BRITNI Mariooronavirus IG39Hxl detectedNormalNOTDETMAdena Regional Medical Center HospitalComment on above:Performed By: #### CMPX, CDP #### [facility] [address] [place] [address] [place] [address] Chef German: Ziggy Hilario [facility]iatric Hospitalavirus BC74Pnf detectedNormalNOTDETMAdena Regional Medical Center HospitalComment on above:Performed By: #### CMPX, CDP #### [facility] [address] [place] [address] [place] [address] Chef German: Laura Mario MetapneumoNot detectedNormalNOTDESouthview Medical Center HospitalComment on above:Performed By: #### CMPX, CDP #### [facility] [address] [place] [address] [place] [address] Chef German: Geoff Mario ANot detectedNormalNOTDESouthview Medical Center HospitalComascension providence hospital on above:Performed By: #### CMPX, CDP #### [facility] [address] [place] [address] [place] [address] Chef German: Geoff Mario BNot detectedNormalNOTDETMAdena Regional Medical Center HospitalComment on above:Performed By: #### CMPX, CDP #### [facility] [address] [place] [address] [place] [address] Chef German: Homa Mario.pneumoniaeNot detectedNormalNOTDETMWexner Medical Centerment on above:Result Comment: Performed by multiplexed nucleic acid assay.Performed By: #### CMPX, CDP #### [facility] [address] [place] [address] [place] [address] Chef German: Zack Marioinfltiffanyndanilo 1Not detectedNormalNOTDESouthview Medical Center HospitalComment on above:Performed By: #### CMPX, CDP #### [address] [place] [address] Chef German: Ankit Marionza 2Not detectedNormalNOTDESouthview Medical Center HospitalComment on above:Performed By: #### CMPX, CDP #### [facility] [address] [place] [address] [place] [address] Chef German: Vanita Mario 3Not detectedNormalNOTDESouthview Medical Center HospitalComment on above:Performed By: #### CMPX, CDP #### [address] [place] [address] Chef German: Ankit Marionza 4Not detectedNormalNOTDESouthview Medical Center HospitalComment on above:Performed By: #### CMPX, CDP #### [address] [place] [address] Chef German: SAAD Marioesp Syncytial VirusNot detectedNormalNOTSt. Mary's Medical Center HospitalComascension providence hospital on above:Performed By: #### CMPX, CDP #### [facility] [address] [place] [address] [place] [address] Chef German: SAAD Mariohino/EnterovirusNot detectedNormalNOTDESouthview Medical Center HospitalComascension providence hospital on above:Performed By: #### CMPX, CDP #### [address] [place], [place] 7958383 Chef German: SOHA Mario-CoV-2 (COVID-19) RNA NAZ+probe Ql (Unsp spec) Not detectedNormalNOTDESouthview Medical Center HospitalComment on above:Performed By: #### CMPX, CDP #### [address] [place] [address] Chef German: Taylor Mario Metabolic Profon 13-85-9086Dybnu gap [Moles/Vol]12 mmol/LNormal9-16[facility] HospitalComment on above:Performed By: #### CMPX, CDP #### [address] [place], [place] 0252583 Chef German: FABI MarioN/CRE Aomvn68Qcefzb0-83Mnlxu [facility] Comment on above:Performed By: #### CMPX, CDP #### [address] [place] [address] Chef German: BRITNI Marioalcium [Mass/Vol]9.5 mg/dLNormal8.6-10.4MerOhioHealth Shelby Hospital HospitalComment on above:Performed By: #### CMPX, CDP #### [address] [place] [address] Chef German: BRITNI Mariohloride [Moles/Vol]97 mmol/QKxh99-377Rgtwh [facility] HospitalComment on above:Performed By: #### CMPX, CDP #### [address] [place] [address] Chef German: Ziggy Hilario MDCO2 [Moles/Vol]27 mmol/CUfxlfm47-60Bsoek [facility]in HospitalComment on above:Performed By: #### CMPX, CDP #### [address] [place], [place] 7089483 Chef German: BRITNI Marioreatinine [Mass/Vol]1.1 mg/dLNormal0.70-1.20MerOhioHealth Shelby Hospital HospitalComment on above:Performed By: #### CMPX, CDP #### [address] [place] [address] Chef German: Ziggy Hilario MDGFR/1.73 sq M.predicted among non-blacks MDRD (S/P/Bld) [Vol rate/Area]77 mL/min/{1.73_m2}Normal>60[facility] Comment on above:Result Comment: These results are not intended for [...] or following therapy that affects renal tubular secretion.Performed By: #### CMPX, CDP #### [address] [place] [address] Chef German: Ziggy Hilario MDGlucose [Mass/Vol]124 mg/lRRwsn82-46AkavgWilson Memorial HospitalComment on above:Performed By: #### CMPX, CDP #### [address] [place], [place] 3457683 Chef German: SUJATA Mariootassium [Moles/Vol]4.3 mmol/LNormal3.7-5.3[facility] medical centery [place] HospitalComment on above:Performed By: #### CMPX, CDP #### [address] [place] [address] Chef German: PIEDAD Marioodium [Moles/Vol]136 mmol/YWdmlos289-576AvowzWhite HospitalComment on above:Performed By: #### CMPX, CDP #### [address] [place] [address] Chef German: Ziggy Hilario MDUrea nitrogen [Mass/Vol]13 mg/dLNormal6-20White HospitalComment on above:Performed By: #### CMPX, CDP #### [address] [place], [place] [address] Chef German: EBENEZER Mario with Diffon 56-70-4807Ikn. Basophil0.09 k/uL Normal0.00-0.20MerOhioHealth Shelby Hospital HospitalComment on above:Performed By: #### CMPX, CDP #### [address] [place] [address] Chef German: Chen Mario.Imm.Granulocyte0.07 k/uLNormal0.00-0.30MerOhioHealth Shelby Hospital HospitalComment on above:Performed By: #### CMPX, CDP #### [address] [place] [address] Chef German: Chen Mario.Neutrophil (Seg)8.49 k/uLHigh1.50-8.10MerOhioHealth Shelby Hospital HospitalComment on above:Performed By: #### CMPX, CDP #### [address] [place], [place] [address] Chef German: Ziggy Hilario MDBasophils/100 WBC (Bld)1 %Normal0-2MercFisher-Titus Medical Center HospitalComment on above:Performed By: #### CMPX, CDP #### [address] [place], [place] [address] Chef German: Ziggy Hilario MDEosinophils (Bld) [#/Vol]0.08 10*3/uLNormal 0.00-0.44MerOhioHealth Shelby Hospital HospitalComment on above:Performed By: #### CMPX, CDP #### [address] [place] [address] Chef German: BLAIR Marioosinophils/100 WBC (Bld)1 %Normal1-4MerOhioHealth Shelby Hospital HospitalComment on above:Performed By: #### CMPX, CDP #### [address] [place] [address] Chef German: Ziggy Hilario MDErythrocyte distribution width (RBC) [Ratio]13.0 % Wgladc11.8-14.4White HospitalComment on above:Performed By: #### CMPX, CDP #### [address] [place], [facility] Chef German: Ziggy Hilario MDHematocrit (Bld) [Volume fraction]40.9 %Normal 40.7-50.3MWilson Memorial HospitalComment on above:Performed By: #### CMPX, CDP #### [address] [place] [address] Chef German: Ziggy Hilario MDHemoglobin (Bld) [Mass/Vol]13.4 g/dLNormal 13.0-17.0White HospitalComment on above:Performed By: #### CMPX, CDP #### [address] [place], [place] [address] Chef German: Ziggy Hilario MDImmature granulocytes/100 WBC (Bld)1 %Pzwa9HisjzWhite HospitalComment on above:Performed By: #### CMPX, CDP #### [address] [place] [address]683 Chef German: Ziggy Hilario MDLymphocytes (Bld) [#/Vol]3.96 10*3/uLHigh1.10-3.70 [facility] HospitalComascension providence hospital on above:Performed By: #### CMPX, CDP #### [address] [place] [address]683 Chef German: Ziggy Hilario MDLymphocytes/100 WBC (Bld)29 %Alkgzi58-96QyoxiWhite HospitalComment on above:Performed By: #### CMPX, CDP #### [address] [place] [address]683 Chef German: NANCY MarioCH (RBC) [Entitic mass]29.5 vrLyeysj82.2-33.5 White HospitalComment on above:Performed By: #### CMPX, CDP #### [address] [place] [address] Chef German: NANCY MarioCHC (RBC) [Mass/Vol]32.8 g/uRQshmtt90.4-34.8[facility] HospitalComment on above:Performed By: #### CMPX, CDP #### [address] [place], [place] 2397183 Chef German: NANCY MarioCV (RBC) [Entitic vol]90.1 bQAdkccr67.6-102.9 White HospitalComment on above:Performed By: #### CMPX, CDP #### [address] [place], [place] 8646883 Chef German: NANCY Marioonocytes (Bld) [#/Vol]1.11 10*3/uLNormal0.10-1.20 White HospitalComascension providence hospital on above:Performed By: #### CMPX, CDP #### [address] [place], [place] 9023483 Chef German: NANCY Marioonocytes/100 WBC (Bld)8 %Normal3-12White HospitalComment on above:Performed By: #### CMPX, CDP #### [address] [place], [place] 2478583 Chef German: Ziggy Hilario MDNeutrophil (Seg)60 %Vkmtyw73-58XgozcWhite HospitalComment on above:Performed By: #### CMPX, CDP #### [address] [place], [place] [id number] Chef German: BAR Mario Automated0.0 per 100 WBCNormal0.0White HospitalComment on above:Performed By: #### CMPX, CDP #### [address] [place], [place] 5874483 Chef German: Tatiana Mario mean volume (Bld) [Entitic vol]9.7 fL Normal8.1-13.5White HospitalComment on above:Performed By: #### CMPX, CDP #### [address] [place], [place] 0342383 Chef German: Gina Mario (Bld) [#/Vol]419 10*3/eIUjdvai650-935 [facility] HospitalComment on above:Performed By: #### CMPX, CDP #### [address] [place], [place] 0199183 Chef German: TIERRA Mario (Bld) [#/Vol]4.54 10*6/uLNormal4.21-5.77[facility] HospitalComment on above:Performed By: #### CMPX, CDP #### [address] [place], [place] 2504583 Chef German: ANN Mario (Bld) [#/Vol]13.8 10*3/uLHigh3.5-11.3MAdena Regional Medical Center HospitalComment on above:Performed By: #### CMPX, CDP #### [address] [place], [place] 8563183 Chef German: KAITY Mario CHEST ABDOMEN PELVIS W CONTRASTon [id number] CHEST ABDOMEN PELVIS W CONTRASTEXAMINATION: CT OF THE CHEST, ABDOMEN, AND PELVIS [...] thickening is evident. No perienteric inflammatory change. Peritoneum/Retroperitoneum: No lymphadenopathy or ascites is present. Aorta/IVC: [...] Signed by: Fantasma Chanel MD 07/23/25 Final resultNormalMercy Natchaug HospitalFlu A/B Ag Detectionon 39-55-7140Hdq A Ag DetectionNegativeNormalNEGMercy Natchaug HospitalComment on above:Result Comment: for Influenza A AntigenPerformed By: #### STLPCR #### [employer] [address] [place] [address] Chef German: Reno Duron MD [address] [place], [place] [address]466783 Chef German: Ziggy Hilario MDFlu B Ag DetectionNegativeNormalNEGWhite HospitalComment on above:Result Comment: for Influenza B Antigen.Performed By: #### STLPCR #### [facility] [address] [place] [address] Chef German: Reno Duron MD [address] [place], [place] 7871883 Chef German: Ziggy Hilario MDMercy General Hospital Profileon 40-73-6431Bmwqxou [Mass/Vol]4.5 g/dLNormal3.5-5.2MWilson Memorial HospitalComment on above:Performed By: #### CMPX, CDP #### [address] [place] [address] Chef German: Ziggy Hilario MDAlbumin/Glob Ratio1.0Lwnoco0.0-2.5White HospitalComment on above:Performed By: #### CMPX, CDP #### [address] [place] [address] Chef German: Dusty Marioline Hgdz518 U/SCjuzfk57-287NocfbWhite HospitalComment on above:Performed By: #### CMPX, CDP #### [facility] [facility] [address] [place] [address] [place] [address] Chef German: Ziggy Hilario MDALT [Catalytic activity/Vol]47 U/JWdrcnn78-17AxpicWhite HospitalComment on above:Performed By: #### CMPX, CDP #### [facility] [address] [place] [address] [place] [place], [place] [id number] Chef German: Ziggy Sturtz, MDAST [Catalytic activity/Vol]44 U/FAjcece99-87AtvjgWhite HospitalComment on above:Performed By: #### CMPX, CDP #### [address] [place] [address] Chef German: Ziggy Hilario MDBilirubin [Mass/Vol]0.3 mg/dLNormal0.00-1.20White HospitalComment on above:Performed By: #### CMPX, CDP #### [address] [place] [address] Chef German: Holger Mario, IndirectCan not be calculatedNormal 0.0-1.0White HospitalComment on above:Performed By: #### CMPX, CDP #### [address] [place], [place] [address]83 Chef German: Holger Mario.indirect [Mass/Vol]mg/dLNormal0.00-0.30 White HospitalComment on above:Performed By: #### CMPX, CDP #### [address] [place] [address] Chef German: Ziggy Hilario MDProtein [Mass/Vol]7.1 g/dLNormal6.6-8.7White HospitalComment on above:Performed By: #### CMPX, CDP #### [address] [place] [address] Chef German: Ziggy Hilario MDResp Viral Panelon [id number]: .NASOPHARYNGEAL SWABNormalWhite HospitalComment on above:Performed By: #### CMPX, CDP #### [address] [place], [place] [id number] Chef German: SOHA Mario-CoV-2on 07-35-1355EVYU-CoV-2 (COVID-19) RNA NAZ+probe Ql (Unsp spec)Not detectedNormalNOTDETMercy Natchaug HospitalComment on above:Result Comment: Rapid NAAT: The specimen is NEGATIVE [...] patient management decisions. Methodology: Isothermal Nucleic Acid AmplificationPerformed By: #### PRCAL #### [facility] [address] [place] [address] Chef German: Ashely Allen 04-50-7540Thkindlx, High Sens10 ng/L Normal0-22White HospitalComment on above:Result Comment: High Sensitivity Troponin values cannot be compared with other Troponin methodologies.Performed By: #### CMPX, CDP #### [facility] [address] [place] [address] Chef German: TREASURE Mario CHEST PORTABLEon [id number] CHEST PORTABLE EXAM: 1 VIEW(S) XRAY OF THE CHEST 07/23/2025 06:11:28 PM COMPARISON: No prior study. Date: 06/18/2025. CLINICAL HISTORY: dyspnea. FINDINGS: LUNGS AND PLEURA: Minimal right basilar atelectasis. No focal consolidation. No pulmonary edema. No pleural effusion.No pneumothorax. HEART AND MEDIASTINUM: Cardiomediastinal silhouettes are similar. BONES AND SOFT TISSUES: Postoperative changes are seen in the spine. Degenerative change in the shoulders. No acute osseousabnormality is identified. IMPRESSION: 1. No acute cardiopulmonary pathology. 2. Minimal right basilar atelectasis. Interpreted by: Ziggy Lyn MD Signed by: Ziggy Lyn MD 07/23/25 Final resultNormMercy Health Tiffin HospitalCNPNon [id number]cy Hospital Cleveland East, Bloodon [id number], BloodSpecimen Description .BLOOD 10mL Special Requests RH by MADISON in ER Culture NO GROWTH 5 DAYS Report Status FINAL 06/23/2025OhioHealth Shelby HospitalComment on above: Performed By: #### IRVING MONTE, CP #### [facility] [address] [place] [address] [place] [address] Chef German: Octaviano Mario,Bloodon [id number],BloodSpecimen Description .BLOOD 3mL AEROBIC ONLY Special Requests 3mL RAC by MADISON in ER Culture NO GROWTH 5 DAYS Report Status FINAL 06/23/2025OhioHealth Shelby HospitalComment on above: Performed By: #### IRVING MONTE, CP #### [facility] [address] [place] [address] Chef German: Ziggy Hilario [facility] with Auto Differentialon [id number] (Bld) [#/Vol]0.09 10*3/uLBon [facility] Methodist HospitalIminture granulocytes (Bld) [#/Vol]0.11 10*3/uLBon [facility] HospitalInterpretation and review of laboratory resultsAbnormalWinchester Medical CenterLymphocytes/100 WBC (Bld)3.26 %[facility]ster Medical CenterMonocytes/100 WBC (Bld)1.37 %[facility]aks HospitalNeutrophils/100 WBC (Bld)76 %High36 - 65 %[facility] Nucleated RBC/100 WBC (Bld) [Ratio]0.0 %0.0 per 100 WBCWinchester Medical Center Segmented neutrophils/100 WBC (Bld)15.88 %[facility] Oaks HospitalWBC other (Bld) [#/Vol]20.8HighBon [facility] SystemCBC with Diffon 99-74-1257Eceufbwup/100 WBC (Bld)0 %Normal0-2Bon [facility] Comment on above:Performed By: #### URC #### [address] [place] [address] Chef German: Reno uDron MD [address] [place] [id number] Chef German: Ziggy Hilario MDEosinophils (Bld) [#/Vol]0.07 10*3/uLNormal 0.00-0.44Bon [facility] on above:Performed By: #### URC #### [address] [address] Chef German: Reno Duron MD [address] [place] [id number] Chef German: Ziggy Hilario MDEosinophils/100 WBC (Bld)0 %Low1-4Bon [facility] Hospitalment on above:Performed By: #### URC #### [address] [address] Chef German: Reno Duron MD [address] [place] [address] Chef German: Ziggy Hilario MDErythrocyte distribution width (RBC) [Ratio]13.7 % Fihorg26.8-14.4Bon [facility] on above:Performed By: #### URC #### [address] [address] Chef German: Reno Duron MD [address] [place] [id number] Chef German: Ziggy Hilario MDHematocrit (Bld) [Volume fraction]36.8 %Low 40.7-50.3Bon [facility] on above:Performed By: #### URC #### [address] [address] Chef German: Reno Duron MD [facility] [address] [place] [address] [place] [address] Chef German: Ziggy Hilario MDHemoglobin (Bld) [Mass/Vol]12.0 g/dLLow13.0-17.0 Bon [facility] on above:Performed By: #### URC #### [facility] [address] [place] [address] Chef German: Reno Duron MD [address] [place] [address] Chef German: Ziggy Hilario MDImmature granulocytes/100 WBC (Bld)1 %Icfq6Znf [facility] on above:Performed By: #### URC #### [address] [address] Chef German: Reno Duron MD [address] [place] [id number] Chef German: Ziggy Hilario MDLymphocytes/100 WBC (Bld)16 %Ovx74-05Xsy [facility] on above:Performed By: #### URC #### [facility] [address] [place] [address] Chef German: Reno Duron MD [address] [place] [id number] Chef German: NANCY MarioCH (RBC) [Entitic mass]29.4 faEcxptx33.2-33.5Bon [facility] on above:Performed By: #### URC #### [facility] [address] [place] [address] Chef German: eRno Duron MD [address] [place] [phone] Chef German: Zgigy Sturtz, MDMCHC (RBC) [Mass/Vol]32.6 g/rWIqjynt78.4-34.8Bon [facility] on above:Performed By: #### URC #### [facility] [address] [place] [address] Chef German: Reno Duron MD [address] [place] [phone] Chef German: NANCY MarioCV (RBC) [Entitic vol]90.2 wXVdfvyt28.6-102.9Bon [facility] on above:Performed By: #### URC #### [address] [address] Chef German: Reno Duron MD [address] [place] [id number] Chef German: NANCY Marioonocytes/100 WBC (Bld)7 %Normal3-12Bon [facility] on above:Performed By: #### URC #### [address] [address] Chef German: Reno Duron MD [address] [place] [address] Chef German: Yessi Mariotejennie mean volume (Bld) [Entitic vol]9.4 fL Normal8.1-13.5Bon [facility] on above:Performed By: #### URC #### [address] [address] Chef German: Reno Duron MD [address] [place] [address] Chef German: SUJATA Mariolateshannan (Bld) [#/Vol]356 10*3/qROtdgnr809-797Npq [facility] on above:Performed By: #### URC #### [facility] [address] [place] [address] Chef German: Reno Duron MD [address] [place] [address] Chef German: TIERRA Mario (Bld) [#/Vol]4.08 10*6/uLLow4.21-5.77Bon SecPremier Health [facility] Hospital SouthComascension providence hospital on above:Performed By: #### URC #### [facility] [address] [place] [address] Chef German: Reno Duron MD [address] [place] [id number] Chef German: MDAbs. Fabiano Basophil0.09 k/uLNormal0.00-0.20White HospitalComment on above:Performed By: #### URC #### [address] [address] Chef German: Reno Duron MD [address] [place], [facility] Chef German: MDAbs. FabianoImm.Granulocyte0.11 k/uLNormal0.00-0.30White HospitalComascension providence hospital on above:Performed By: #### URC #### [address] [address] Chef German: Reno Duron MD [address] [place] [address] Chef German: Chen Mairo.Neutrophil (Seg)15.88 k/uLHigh1.50-8.10White HospitalComascension providence hospital on above:Performed By: #### URC #### [address] [address] Chef German: Reno Duron MD [address] [place] [id number] Chef German: Ziggy Hilario MDLymphocytes (Bld) [#/Vol]3.26 10*3/uLNormal 1.10-3.70White HospitalComment on above:Performed By: #### URC #### [facility] [address] [place] [address] Chef German: Reno Duron MD [address] [place] [address] Chef German: NANCY Marioonocytroselia (Bld) [#/Vol]1.37 10*3/uLHigh0.10-1.20 White HospitalComment on above:Performed By: #### URC #### [facility] [address] [place] [address] Chef German: Reno Duron MD [address] [place] [address] Chef German: Ziggy Hilario MDNemitzi ([facility])76 %Fnwy16-58WkexmWhite Hospital Comment on above:Performed By: #### URC #### [facility] [address] [place] [address] Chef German: Reno Duron MD [address] [place] [address] Chef German: Ziggy Hilario MDNRBC Automated0.0 per 100 WBCNormal0.0White HospitalComment on above:Performed By: #### URC #### [facility] [address] [place] [address] Chef German: Reno Duron MD [address] [place] [address] Chef German: MILTON MarioBC (Bld) [#/Vol]20.8 10*3/uLHigh3.5-11.3Mercy Point Pleasant HospitalComment on above:Performed By: #### URC #### [facility] [address] [place] [address] Chef German: Reno Duron MD [facility] [address] [place] [address] Chef German: Ziggy Hilario MDCOVID-19, Rapidon 79-83-5972GCYI-CoV-2 (COVID-19) RdRp gene NAZ+probe Ql (Resp)Not detectedNot [facility] Comment on above: Rapid NAAT: The [...] decisions. Methodology: Isothermal Nucleic Acid Amplification Specimen Description.NASOPHARYNGEAL SWABSouthampton Memorial HospitalCT ABDOMEN PELVIS W IV CONTRASTon [id number] ABDOMEN PELVIS W IV CONTRASTEXAM: CT ABDOMEN AND PELVIS WITH IV CONTRAST [...] by: Aleksandr Jean Baptiste MD 06/18/25 Final resultNormalMercy Waterbury Hospital Abdomen and Pelvis W contrast Thee . No acute findings in the abdomen or pelvis related to the clinical history of abdominal pain. [facility] RIS CONSOLIDATEDEXAM: CT ABDOMEN AND PELVIS WITH IV CONTRAST [...] abnormality mentioned, except for minimal rectus diastasis. [facility] Aleksandr Magaña MD - 06/18/2025 EXAM: CT ABDOMEN AND [...] to the clinical history of abdominal pain. [facility] Medical CenterRadiology Study observation (narrative)[facility] Memorial HospitalEvocalize [facility]cy[facility] HospitalCT Abdomen and Pelvis W contrast IVOrdered By: Aleksandr Jean Baptiste on [id number] [facility] [employer] Work Phone: Comp Metabolic Profon 54-06-0644Azsdrxi [Mass/Vol]3.9 g/dLNormal3.5-5.2Mercy Natchaug HospitalComment on above:Performed By: #### URC #### [employer] [address] [place] [address] Chef German: Reno Duron MD [address] [place] [address] Chef German: Ziggy Hilario MDAlbumin/Glob Ratio1.6Qhcfmx2.0-2.5Mercy Point Pleasant HospitalComment on above:Performed By: #### URC #### [facility] [address] [place] [address] Chef German: Reno Duron MD [address] [place] [address] Chef German: Dusty Marioline Phos96 U/FEyiulq42-422Trgkm Tiffin HospitalComment on above:Performed By: #### URC #### [address] [place] [address] Chef German: Reno Duron MD [address] [place] [address] Chef German: Ziggy Hilario MDALT [Catalytic activity/Vol]35 U/KXzrrqw09-44Wwnvd Tiffin HospitalComment on above:Performed By: #### URC #### [facility] [address] [place] [address] Chef German: Reno Durno MD [address] [place] [address] Chef German: Jackie Mario gap [Moles/Vol]13 mmol/LNormal9-16Mer[facility] Health West Hospitalcy Point Pleasant HospitalComment on above:Performed By: #### URC #### [facility] [address] [place] [address] Chef German: Reno Duron MD [address] [place] [address] Chef German: Ziggy Hilario MDAST [Catalytic activity/Vol]32 U/IOjmkfm21-06Dpvth Tiffin HospitalComment on above:Performed By: #### URC #### [address] [place] [address] Chef German: Reno Duron MD [address] [place], [place] 7[address]3883 Chef German: Ziggy Hilario MDBilirubin [Mass/Vol]0.3 mg/dLNormal0.00-1.20White HospitalComment on above:Performed By: #### URC #### [facility] [address] [place] [address] Chef German: Reno Duron MD [address] [place] [address] Chef German: Ziggy Hilario MDBUN/CRE Xepei52Dnxynp5-41Aamtb [facility] Comment on above:Performed By: #### URC #### [address] [address] Chef German: Reno Duron MD [address] [place] [id number] Chef German: BRITNI Marioalcium [Mass/Vol]8.9 mg/dLNormal8.6-10.4White HospitalComment on above:Performed By: #### URC #### [facility] [address] [place] [address] Chef German: Reno Duron MD [address] [place] [phone] Chef German: BRITNI Mariohloride [Moles/Vol]98 mmol/LQfpckl77-089NotyjWhite HospitalComment on above:Performed By: #### URC #### [facility] [address] [place] [address] Chef German: Reno Duron MD [address] [place], [place] 5548383 Chef German: Ziggy Sturtz, MDCO2 [Moles/Vol]23 mmol/HTmkdqt24-94HxphpWhite HospitalComment on above:Performed By: #### URC #### [facility] [address] [place] [address] Chef German: Reno Duron MD [facility] [address] [place] [address] [place] [place], [place] 7936083 Chef German: BRITNI Marioreatinine [Mass/Vol]1.0 mg/dLNormal0.70-1.20White HospitalComment on above:Performed By: #### URC #### [facility] [address] [place] [address] Chef German: Reno Duron MD [facility] [address] [place] [address] [place] [address] Chef German: Ziggy Hilario MDGFR/1.73 sq M.predicted among non-blacks MDRD (S/P/Bld) [Vol rate/Area]88 mL/min/{1.73_m2}Normal>60White Hospital Comment on above:Result Comment: These results are not intended for [...] or following therapy that affects renal tubular secretion.Performed By: #### URC #### [facility] [address] [place] [address] Chef German: Reno Duron MD [facility] [address] [place] [address] [place] [address] Chef German: Ziggy Hilario MDGlucose [Mass/Vol]230 mg/hHOnui91-73PjsdbWilson Memorial HospitalComment on above:Performed By: #### URC #### [facility] [address] [place] [address] Chef German: Reno Duron MD [address] [place], [place] 6069183 Chef German: SUJATA Mariootassium [Moles/Vol]4.4 mmol/LNormal3.7-5.3Muniversity hospitals lake west medical centery Natchaug HospitalComment on above:Performed By: #### URC #### [facility] [address] [place] [address] Chef German: Reno Duron MD [address] [place] [phone] Chef German: Ziggy Hilario MDProtein [Mass/Vol]6.2 g/dLLow6.6-8.7White HospitalComment on above:Performed By: #### URC #### [address] [address] Chef German: Reno Duron MD [address] [place] [address] Chef German: PIEDAD Marioodium [Moles/Vol]134 mmol/AQzt108-499XienyWhite HospitalComment on above:Performed By: #### URC #### [facility] [address] [place] [address] Chef German: Reno Duron MD [address] [place] [phone] Chef German: Ziggy Hilario MDUrea nitrogen [Mass/Vol]14 mg/dLNormal6-20White HospitalComment on above:Performed By: #### URC #### [facility] [address] [place] [address] Chef German: Reno Duron MD [address] [place] [address] Chef German: BRITNI Marioomprehensive Metabolic Panelon 45-59-9356Lwiznhp [Mass/Vol]3.9 g/dL3.5 - 5.2 g/dLBon Secours Mercy HealthAlbumin/Globulin [Mass ratio]1.7 {ratio}1.0 - 2.5Bon Secours Mercy HealthALP [Catalytic activity/Vol]96 U/L40 - 129 U/LBon Secours Mercy HealthALT [Catalytic activity/Vol]35 U/L10 - 50 U/LBon Secours Mercy HealthAnion gap [Moles/Vol]13 mmol/L9 - 16 mmol/LBon Secours Mercy HealthAST [Catalytic activity/Vol]32 U/L10 - 50 U/LBon Secours Mercy HealthBilirubin [Mass/Vol]0.3 mg/dL0.00 - 1.20 mg/dLBon Secours Mercy HealthCalcium [Mass/Vol]8.9 mg/dL8.6 - 10.4 mg/dLBon Secours [facility]cy Health Chloride [Moles/Vol]98 mmol/L98 - 107 mmol/LBon Secours [facility] Centery HealthCO2 [Moles/Vol]23 mmol/L20 - 31 mmol/LBon Secours [facility] Centery HealthCreatinine [Mass/Vol] 1.0 mg/dL0.70 - 1.20 mg/dLBon Secours Penguin Computingy HealthEst, Glom Filt Rate88- PINFBon Secours [facility] HealthComment on above: These results are not intended [...] therapy that affects renal tubular secretion. Glucose [Mass/Vol]230 mg/kYQlmf27 - 99 mg/dLBon Secours Mercy HealthPotassium [Moles/Vol]4.4 mmol/L3.7 - 5.3 mmol/LBon Secours Mercy HealthProtein [Mass/Vol] 6.2 g/dLLow6.6 - 8.7 g/dLBon Secours Mercy HealthSodium [Moles/Vol]134 mmol/LLow 136 - 145 mmol/LBon Secours Mercy HealthUrea nitrogen [Mass/Vol]14 mg/dL6 - 20 mg/dLBon Secours Mercy HealthUrea nitrogen/Creatinine [Mass ratio]14 mg/mg9 - 20 Bon [facility] Methodist HospitalFlu A/B Ag Detectionon 06-86-9650Oze A Ag Detection NegativeNormalNEGWhite HospitalComment on above:Result Comment: for Influenza A AntigenPerformed By: #### STLPCR #### [facility] Center[facility] [address] [place] [address] Chef German: Reno Duron MD [address] [place] [phone] Chef German: Ziggy Hilario MDFlu B Ag DetectionNegativeNormalNEGWhite HospitalComascension providence hospital on above:Result Comment: for Influenza B Antigen.Performed By: #### STLPCR #### [facility] [address] [place] [address] Chef German: Reno Duron MD [address] [place] [phone] Chef German: Annemarie Mario Sepsison 64-66-9355Hnxdtcfkydxmlq and review of laboratory resultsAbnormalBon [facility] Methodist HospitalLactate (BldV) [Moles/Vol]2.1 mmol/LHigh0.5 - 1.9 mmol/LBon Brookings Health SystemLactic Acid, Sepsis2.1 mmol/LHigh0.5-1.9White HospitalComascension providence hospital on above:Performed By: #### URC #### [facility] [address] [place] [address] Chef German: Reno Duron MD [address] [place] [address] Chef German: Annemarie Mario (BldV) [Moles/Vol]1.8 mmol/L0.5 - 1.9 mmol/LBon Brookings Health SystemLactic Acid, Sepsis1.8 mmol/LNormal0.5-1.9White HospitalComment on above:Performed By: #### CMPX, CDP #### [facility] [address] [place] [address] [place] [address] Chef German: Ziggy Hilario MDLactic Acidon 11-81-8889Vbhgqbt (BldV) [Moles/Vol] 1.3 mmol/L0.5 - 2.2 mmol/LBon [facility] Lactate [Moles/Vol]1.3 mmol/LNormal0.5-2.2MWilson Memorial HospitalComment on above: Performed By: #### CMPX, CDP #### [facility] [address] [place] [address] [place] [address] Chef German: Ziggy Hilario MDLipaseon 07-25-7123Xmexdp [Catalytic activity/Vol] 7 U/LLow13 - 60 U/LBon [facility] Methodist HospitalLipase [Catalytic activity/Vol]7 U/L Cgr86-90EpjldWhite HospitalComment on above:Performed By: #### STLPCR #### [facility] [address] [place], [place] [address]8 Chef German: Reno Duron MD [address] [place] [address] Chef German: Ziggy Hilario MDNo Panel Informationon 72-03-1936Avowjlwsedagzj and review of laboratory resultsAbnormalSouthampton Memorial HospitalPortable XR Chest AP single viewon . Small patchy opacity in right midlung, concerning for pneumonia. 2. Right posterior sixth rib fracture. MHPN RIS CONSOLIDATEDEXAM: 1 VIEW XRAY OF THE CHEST 06/18/2025 [...] plate and screws noted. Spinal stimulator noted. PN RIS CONSOLIDATEDRobalfa, Tommy Palomo, DO - 06/18/2025 EXAM: 1 VIEW XRAY OF [...] pneumonia. 2. Right posterior sixth rib fracture. MezzobitRadiology Study observation (narrative)[facility] [employer] GROUPBluffton Regional Medical Centerable XR Chest AP single viewOrdered By: Tommy Guerra on 06-18-2025 [employer] Work Phone: Rapid influenza A/B antigenson 28-30-7246MZFMR Ag Ql (Unsp spec)NegativeNEGATIVEWinchester Medical CenterComment on above:for Influenza A AntigenFLUBV Ag Ql (Unsp spec)NegativeNEGATIVEWinchester Medical CenterComment on above:for Influenza B Antigen.[facility] [employer]IX BRAND GROUPResp Viral Panelon 49-91-2783PvlyjgaglrMnn detectedNormalNOTDEGerman Hospital Comment on above:Performed By: #### STLPCR #### [facility] Center[facility] [address] [place] [address] Chef German: Reno Duron MD [facility] [address] [place] [address] Chef German: Alida Mario.parapertussisNot detectedNormalNOTDEGerman HospitalComment on above:Performed By: #### STLPCR #### [facility] [employer] [facility] [place] [address] Chef German: Reno Duron MD [facility] [address] [place] [address] [place] [address] Chef German: Ziggy Hilario MDBordetella pertussisNot detectedNormalNOTDEGerman HospitalComascension providence hospital on above:Performed By: #### STLPCR #### [facility] [address] [place] [address] Chef German: Reno Duron MD [facility] [address] [place] [address] [place] [address] Chef German: BRITNI Mariohlamyd.pneumoniaeNot detectedNormalNOTDEGerman HospitalComascension providence hospital on above:Performed By: #### STLPCR #### [facility] [address] [place] [address] Chef German: Reno Duron MD [facility] [address] [place] [address] Dr. [place], [place] [id number] Chef German: BRITNI Mariooronavirus 229ENot detectedNormalNOTDESouthview Medical Center HospitalComment on above:Performed By: #### STLPCR #### [facility] [address] [place] [address] Chef German: Reno Duron MD [address] [place] [address] Chef German: BRITNI Mariooronavirus TFM4Kdu detectedNormalNOTDETMAdena Regional Medical Center HospitalComascension providence hospital on above:Performed By: #### STLPCR #### [facility] [address] [place] [address] Chef German: Reno Duron MD [facility] [address] [place] [address] [place] [address] Chef German: BRITNI Mariooronavirus NB38Ifb detectedNormalNOTDESouthview Medical Center HospitalComment on above:Performed By: #### STLPCR #### [facility] [address] [place] [address] Chef German: Reno Duron MD [facility] [address] [place] [address] [place] [address] Chef German: BRITNI Mariooroncarmine PG77Zkn detectedNormalNOTDETMWilson Memorial HospitalComment on above:Performed By: #### STLPCR #### [facility] [address] [place] [address] Chef German: eRno Duron MD [facility] [address] [place] [address] [place] [address] Chef German: Laura Mario MetapneumoNot detectedNormalNOTMercy Health St. Elizabeth Boardman HospitalComascension providence hospital on above:Performed By: #### STLPCR #### [facility] [address] [place] [address] Chef German: Reno Duron MD [facility] [address] [place] [address] Dr. [place] [id number] Chef German: Geoff Mario ANot detectedNormalNOTDEGerman HospitalComment on above:Performed By: #### STLPCR #### [facility] [address] [place] [address] Chef German: Reno Duron MD [address] [place] [phone] Chef German: Geoff Mario BNot detectedNormalNOTDETMWilson Memorial HospitalComascension providence hospital on above:Performed By: #### STLPCR #### [facility] [address] [place] [address] Chef German: Reno Duron MD [facility] [address] [place] [address] Dr. [place], [place] [id number] Chef German: Rebecca Marioas.pneumoniaeNot detectedNormalNOTDEGerman HospitalComascension providence hospital on above:Result Comment: Performed by multiplexed nucleic acid assay.Performed By: #### STLPCR #### [facility] [address] [place] [address] Chef German: Reno Duron MD [facility] [address] [place] [address] [place] [address] Chef German: Vanita Mario 1Not detectedNormalUniversity Hospitals [facility] HospitalComment on above:Performed By: #### STLPCR #### [facility] [address] [place] [address] Chef German: Reno Duron MD [facility] [address] [place] [address] Dr[place], [place] [id number] Chef German: Vanita Mario 2Not detectedNormKossuth Regional Health Center HospitalComment on above:Performed By: #### STLPCR #### [facility] [address] [place] [address] Chef German: Reno Duron MD [facility] [address] [place] [address] Dr. [place], [place] [phone] Chef German: Vanita Mario 3Not detectedNormalNOTSt. Mary's Medical Center HospitalComment on above:Performed By: #### STLPCR #### [facility] [address] [place] [address] Chef German: Reno Duron MD [facility] [address] [place] [address] [place] [address] Chef German: Vanita Mario 4Not detectedNormalNOTSt. Mary's Medical Center HospitalComment on above:Performed By: #### STLPCR #### [facility] [address] [place] [address] Chef German: Reno Duron MD [facility] [address] [place] [address] Dr. [place], [place] [phone] Chef German: SAAD Marioesp Syncytial VirusNot detectedNormMedina HospitalComment on above:Performed By: #### STLPCR #### [facility] [address] [place] [address] Chef German: Reno Duron MD [facility] [address] [place] [address] Dr. [place], [place] [phone] Chef German: SAAD Mariohino/EnterovirusNot detectedNormalNOTMercy Health St. Elizabeth Boardman HospitalComment on above:Performed By: #### STLPCR #### [facility] [address] [place] [address] Chef German: Reno Duron MD [facility] [address] [place] [address] Dr. [place], [place] [phone] Chef German: ELADIA MarioCoV-2 (COVID-19) RNA NAZ+probe Ql (Unsp spec) Not detectedrmMedina HospitalComment on above:Performed By: #### STLPCR #### [facility] [address] [place] [address] Chef German: Reno Duron MD [address] [place], [place] [phone] Chef German: Sushila Mario:.NASOPHARYNGEAL SWABNormalMerNatchaug HospitalComment on above:Performed By: #### STLPCR #### [facility] [address] [place] [address] Chef German: Reno Duron MD [facility] [address] [place] [address] Dr. [place], [place] [phone] Chef German: ELADIA MarioCoV-2on [id number]-CoV-2 (COVID-19) RNA NAZ+probe Ql (Unsp spec)Not detectedOhioHealth Dublin Methodist HospitalComment on above:Result Comment: Rapid NAAT: The specimen is NEGATIVE [...] patient management decisions. Methodology: Isothermal Nucleic Acid AmplificationPerformed By: #### STLPCR #### [address] [id number] Chef German: Reno Duron MD [address] [place] [address] Chef German: Ashely Mario 01-02-6386Augspivh I.cardiac High sensitivity method [Mass/Vol]18 ng/L0 - 22 ng/LBon SecPremier Health Miami Valley Hospital SouthComment on above:High Sensitivity Troponin values cannot be compared with other Troponin methodologies.Troponin, High Sens18 ng/LNormal0-22[facility] on above:Result Comment: High Sensitivity Troponin values cannot be compared with other Troponin methodologies.Performed By: #### STLPCR #### [address] [address] Chef German: Reno Duron MD [address] [place] [address] Chef German: TREASURE Mario CHEST PORTABLEon [id number] CHEST PORTABLE EXAM: 1 VIEW XRAY OF [...] Signed by: Tommy Guerra DO 06/18/25 Final resultNormalMercy Natchaug HospitalCNPNon 58-16-1856GZGNAsszutKewefqzqm Clinic ClevelandGlucose,Whole Bloodon 79-33-9062Kdprlid [Mass/Vol]154 mg/dLHigh 75-110MerOhioHealth Grady Memorial HospitalGlucose,Whole Bloodon 25-93-5088Aacjyva [Mass/Vol]119 mg/dAXxyt01-852SpisiOhioHealth Grady Memorial HospitalGlucose [Mass/Vol]203 mg/yFShza97-479BipfrOhioHealth Grady Memorial HospitalGlucose [Mass/Vol]321 mg/uFRjhc15-736 [facility] HospitalGlucose [Mass/Vol]150 mg/qCJick58-627CshazCleveland Clinic Medina HospitalGlucose [Mass/Vol]186 mg/gKJywy15-392VflaqOhioHealth Grady Memorial HospitalLipid Profileon 72-84-9579Pnmzvlomrba [Mass/Vol]168 mg/dLNormal0-199C[facility] HospitalComascension providence hospital on above:Result Comment: Cholesterol Guidelines: <200 Desirable 200-240 Borderline >240 UndesirablePerformed By: #### LIPR ####[facility] [address] [facility] [place] [address] [facility] Director: Maxi Plata DOCholesterol in HDL [Mass/Vol]49 mg/dLNormal>40MerOhioHealth Grady Memorial HospitalComascension providence hospital on above:Result Comment: HDL Guidelines: <40 Undesirable 40-59 Borderline >59 DesirablePerformed By: #### LIPR ####[facility] [address] [place] [address] Lab Director: Maxi Plata DOCholesterol in LDL [Mass/Vol]95 mg/dLNormal0-100MerOhioHealth Grady Memorial HospitalComascension providence hospital on above:Result Comment: LDL Guidelines: <100 Desirable 100-129 Near to/above Desirable 130-159 Borderline >159 Undesirable Direct (measured) LDL and calculated LDL are not interchangeable tests.Performed By: #### LIPR ####[facility] [address] [facility] [place] [address] Lab Director: Maxi Plata, DO Cholesterol.total/Cholesterol in HDL [Mass ratio]3.4 {ratio}NormalCleveland Clinic Medina HospitalComment on above:Performed By: #### LIPR ####[facility] [address] [facility] [place] [address] Lab Director: Maxi Plata DOTriglyceride [Mass/Vol]118 mg/dLNormal0-149[facility] HospitalComascension providence hospital on above:Result Comment: Triglyceride Guidelines: <150 Desirable 150-199 Borderline 200-499 High >499 Very high Based on AHA Guidelines for fasting triglyceride, July 2012.Performed By: #### LIPR ####[facility] [address] [facility] [place] [address] Lab Director: Maxi Plata DOGlucose,Whole Bloodon 34-39-8283Kwswvuu [Mass/Vol]170 mg/eRCzxv10-083FtfqdCleveland Clinic Medina HospitalGlucose [Mass/Vol]141 mg/eFRrir06-891AjuofCleveland Clinic Medina HospitalGlucose [Mass/Vol]221 mg/jUKurb43-206OwhhbCleveland Clinic Medina HospitalGlucose [Mass/Vol]320 mg/bTFwqk18-617 [facility] HospitalGlucose [Mass/Vol]201 mg/dLVwjm71-322QkpszCleveland Clinic Medina HospitalGlucose [Mass/Vol]208 mg/uFIlga29-078LawznCleveland Clinic Medina HospitalGlucose [Mass/Vol]281 mg/wXMqhi48-720VgyleCleveland Clinic Medina HospitalHepatitis [facility] 48-59-9345Szo A Ab,IgMNon-ReactiveNormalNRCleveland Clinic Medina HospitalComment on above:Performed By: #### LIVP #### [facility] [address] [place] [address] Chef German: Maxi Plata DO #### PHEP #### [address] [address] Chef German: Mukesh Allen Core Ab,IgMNon-ReactiveMercy Health Perrysburg HospitalComascension providence hospital on above:Performed By: #### LIVP #### [facility] [address] [place] [address] Chef German: Maxi Plata DO #### PHEP #### [address] [address] Chef German: Mukesh Allen Surf AgNon-ReactiveMercy Health Perrysburg HospitalComascension providence hospital on above:Performed By: #### LIVP #### [facility] [address] [place] [address] Chef German: Maxi Plata DO #### PHEP #### [address] [address] Chef German: Mukesh Allen AbNon-ReactiveSelect Medical Specialty Hospital - Canton on above:Result Comment: The hepatitis C procedure used in [...] is recommended by ordering HCV RNA by PCR.Performed By: #### LIVP #### [facility] [place] [address] Chef German: Maxi Plata DO #### PHEP #### [address] [address] Chef German: Lexa Allen Profileon 97-03-6080Tblyytm [Mass/Vol]4.5 g/dLNormal3.5-5.2[facility] HospitalComasc[facility] prov[facility] hospital on above:Performed By: #### LIVP #### [facility] [address] [place] [address] Chef German: Maxi Plata DO #### PHEP #### [address] [address] Chef German: Marlena Allen Txtd307 U/CVipfdo94-429OdyswCleveland Clinic Medina HospitalComascension providence hospital on above:Performed By: #### LIVP #### [facility] [address] [place] [address] Chef German: Maxi Plata DO #### PHEP #### [address] [address] Chef German: ASTRID Allen [Catalytic activity/Vol]90 U/RNukw91-29DnyfxCleveland Clinic Medina HospitalComascension providence hospital on above:Performed By: #### LIVP #### [facility] [address] [place] [address] Chef German: Maxi Plata DO #### PHEP #### [address] [address] Chef German: Reno Duron MDAST [Catalytic activity/Vol]76 U/JQelq23-54FasitGlenbeigh Hospital on above:Result Comment: Specimen hemolysis has exceeded the interference as defined by Gwyn. Value may be falsely increased. Suggest recollection if clinically indicated.Performed By: #### LIVP #### [facility] [address] [place] [address] Chef German: Maxi Plata DO #### PHEP #### [address] [address] Chef German: Reno Duron MDBilirubin [Mass/Vol]0.4 mg/dLNormal0.0-1.2MTwin City HospitalComment on above:Performed By: #### LIVP #### [facility] [address] [place] [address] Chef German: Maxi Plata DO #### PHEP #### [address] [address] Chef German: Reno Duron MDBilirubin, IndirectCan not be calculatedNormal 0.0-1.0[facility] HospitalComascension providence hospital on above:Performed By: #### LIVP #### [facility] [address] [place] [address] Chef German: Maxi Plata DO #### PHEP #### [address] [address] Chef German: Reno Duron MDBilirubin.indirect [Mass/Vol]mg/dLNormal0.0-0.3 [facility] HospitalComascension providence hospital on above:Result Comment: Specimen hemolysis has exceeded the interference as defined by Gwyn. Value may be falsely increased. Suggest recollection if clinically indicated.Performed By: #### LIVP #### [facility] [address] [place] [address] Chef German: Maxi Plata DO #### PHEP #### [address] [address] Chef German: SUJATA Allenrotein [Mass/Vol]6.9 g/dLNormal6.6-8.7[facility] HospitalComascension providence hospital on above:Performed By: #### LIVP #### [facility] [address] [place] [address] Chef German: Maxi Plata DO #### PHEP #### [facility] [employer] [address] [place], [place] [id number] Chef German: BRITNI Allenult,Bloodon 43-33-8936Lnkc,BloodSpecimen Description .BLOOD Special Requests 20ML LAC Culture NO GROWTH 5 DAYS Report Status FINAL 05/31/2025NoOhioHealth Marion General HospitalComment on above: Performed By: #### STLPCR #### [facility] [address] [place] [address] Chef German: Reno Duron MD [address] [place] [address] Chef German: Ziggy Hilario MDGlucose,Whole Bloodon 38-04-8081Fwaxodf [Mass/Vol] 356 mg/qANkah91-231CmjocCleveland Clinic Medina HospitalGlucose [Mass/Vol]355 mg/dLHigh 75-110C[facility] HospitalGlucose [Mass/Vol]362 mg/tNUxfe13-232GtnxiCleveland Clinic Medina HospitalGlucose [Mass/Vol]220 mg/nSBwqv39-042EzdhuCleveland Clinic Medina Hospital Glucose [Mass/Vol]93 mg/eSCzdmim02-425YpaxjCleveland Clinic Medina HospitalAcetaminophenon 71-14-8149Sthwpubbzyzee [Mass/Vol]ug/sMVzp31-85QibhzWhite HospitalComment on above:Performed By: #### STLPCR #### [facility] [address] [place] [address] Chef German: Reno Duron MD [address] [place] [address] Chef German: Ziggy Hilario MDAcetaminophen Levelon 67-98-8450Lfegitbbbpoty [Mass/Vol]ug/mLLow10 - 30 ug/mLWinchester Medical CenterInterpretation and review of laboratory resultsAbnormalWinchester Medical CenterBon [facility] CBC with Auto Differentialon 90-68-9331Lpnqzmoff (Bld) [#/Vol]0.10 10*3/uLBon [facility] HospitalBasophils/100 WBC (Bld)1 %0 - 2 %[facility] SecPremier Health [facility] Hospital South Eosinophils (Bld) [#/Vol]0.04 10*3/uLBon Secours Promedica Fostoria Community HospitalEosinophils/100 WBC (Bld)0 %Low1 - 4 %[facility] HospitalErythrocyte distribution width (RBC) [Ratio]13.5 %11.8 - 14.4 %[facility] SecPremier Health Miami Valley Hospital SouthHematocrit (Bld) [Volume fraction]41.8 %40.7 - 50.3 %Bon SecPremier Health Miami Valley Hospital SouthHemoglobin (Bld) [Mass/Vol] 13.5 g/dL13.0 - 17.0 g/dLBon Secours Promedica Fostoria Community HospitalImmature granulocytes (Bld) [#/Vol]0.08 10*3/uLBon Secours [facility] Community HospitalImmature granulocytes/100 WBC (Bld)1 %Xlpn6Btm [facility] HospitalInterpretation and review of laboratory results AbnormalBon SecPremier Health Miami Valley Hospital SouthLymphocytes/100 WBC (Bld)23 %Low24 - 43 %[facility] SecPremier Health Miami Valley Hospital SouthLymphocytes/100 WBC (Bld)2.66 %[facility] CenterH (RBC) [Entitic mass]28.4 pg25.2 - 33.5 pgBon SecOhioHealth Pickerington Methodist HospitalHC (RBC) [Mass/Vol]32.3 g/dL28.4 - 34.8 g/dLBon SecOhioHealth Pickerington Methodist HospitalV (RBC) [Entitic vol]88.0 fL82.6 - 102.9 fLDiamond Children'S Medical Center SecOur [facility] HealthMonocytes/100 WBC (Bld)9 %3 - 12 %[facility] SecOur [facility] of the [facility] HealthMonocytes/100 WBC (Bld)1.01 %[facility] SecPremier Health Miami Valley Hospital SouthNeutrophils/100 WBC (Bld)67 %High36 - 65 %[facility] Nucleated RBC/100 WBC (Bld) [Ratio]0.0 %0.0 per 100 WBCBon [facility] Platelet mean volume (Bld) [Entitic vol]9.4 fL8.1 - 13.5 fLBon Secours [facility] HealthPlatelets (Bld) [#/Vol]499 10*3/uLHighBon [facility]ours [facility] HealthRBC (Bld) [#/Vol]4.75 10*6/uL4.21 - 5.77 m/uLWinchester Medical CenterSegmented neutrophils/100 WBC (Bld)7.95 %Bon [facility] HospitalWBC other (Bld) [#/Vol] 11.8HighBon [facility] HospitalBon [facility] HospitalCB with Diffon 10-97-5681Yag. Basophil0.10 k/uLNormal0.00-0.20MerOhioHealth Shelby Hospital HospitalComment on above:Performed By: #### IRVING MONTE, CP #### [address] [place] [address] Chef German: Chen Mario.Imm.Granulocyte0.08 k/uLNormal0.00-0.30MerOhioHealth Shelby Hospital HospitalComment on above:Performed By: #### IRVING MONTE, CP #### [address] [place] [address] Chef German: Chen Mario.Neutrophil (Seg)7.95 k/uLNormal1.50-8.10[facility] HospitalComment on above:Performed By: #### IRVING MONTE, CP #### [address] [place] [address] Chef German: Ziggy Hilario MDBasophils/100 WBC (Bld)1 %Normal0-2[facility] Pleasant HospitalComment on above:Performed By: #### IRVING MONTE, CP #### [address] [place] [address] Chef German: Ziggy Hilario MDEosinophils (Bld) [#/Vol]0.04 10*3/uLNormal 0.00-0.44MerOhioHealth Shelby Hospital HospitalComment on above:Performed By: #### IRVING MONTE, CP #### [address] [place] [address] Chef German: Ziggy Hilario MDEosinophils/100 WBC (Bld)0 %Low1-4[facility] HospitalComment on above:Performed By: #### IRVING MONTE, CP #### [address] [place], [place] [address] Chef German: Ziggy Hilario MDErythrocyte distribution width (RBC) [Ratio]13.5 % Arecjk88.8-14.4[facility] HospitalComment on above:Performed By: #### IRVING MONTE, CP #### [address] [place] [address] Chef German: Ziggy Hilario MDHematocrit (Bld) [Volume fraction]41.8 %Normal 40.7-50.3[facility] Pleasant HospitalComment on above:Performed By: #### IRVING MONTE, CP #### [address] [place], [place] [address] Chef German: Ziggy Hilario MDHemoglobin (Bld) [Mass/Vol]13.5 g/dLNormal 13.0-17.0[facility] HospitalComment on above:Performed By: #### IRVING MONTE, CP #### [address] [place] [address] Chef German: Ziggy Hilraio MDImmature granulocytes/100 WBC (Bld)1 %Xjxj5MhfgwKindred Hospital Dayton HospitalComment on above:Performed By: #### IRVING MONTE, CP #### [address] [place], [facility] Chef German: Ziggy Hilario MDLymphocytes (Bld) [#/Vol]2.66 10*3/uLNormal 1.10-3.70MerOhioHealth Shelby Hospital HospitalComment on above:Performed By: #### IRVING MONTE, CP #### [address] [place], [place] [address] Chef German: Ziggy Hilario MDLymphocytes/100 WBC (Bld)23 %Hkd12-47ZnwxzWhite HospitalComment on above:Performed By: #### IRVING MONTE, CP #### [address] [place], [place] 3544083 Chef German: NANCY MarioCH (RBC) [Entitic mass]28.4 mcMpkhsy68.2-33.5 [facility] HospitalComment on above:Performed By: #### IRVING MONTE, CP #### [address] [place] [id number] Chef German: NANCY MarioCHC (RBC) [Mass/Vol]32.3 g/rJXkkezc64.4-34.8White HospitalComment on above:Performed By: #### IRVING MONTE, CP #### [address] [place], [facility] Chef German: NANCY MarioCV (RBC) [Entitic vol]88.0 hCYgrbma43.6-102.9 [facility] HospitalComment on above:Performed By: #### IRVING MONTE, CP #### [address] [place] [id number] Chef German: NANCY Marioonocytes (Bld) [#/Vol]1.01 10*3/uLNormal0.10-1.20 White HospitalComment on above:Performed By: #### IRVING MONTE, CP #### [address] [place], [place] 8[address]83 Chef German: NANCY Marioonocytes/100 WBC (Bld)9 %Normal3-12[facility] HospitalComment on above:Performed By: #### IRVING MONTE, CP #### [address] [place] [id number] Chef German: Pee Marioophil (Seg)67 %Hacm73-46AizepWhite Hospital Comment on above:Performed By: #### IRVING MONTE, CP #### [address] [place] [address] Chef German: BAR Mario Automated0.0 per 100 WBCNormal0.0[facility] HospitalComment on above:Performed By: #### IRVING MONTE, CP #### [address] [place] [address] Chef German: Tatiana Mario mean volume (Bld) [Entitic vol]9.4 fL Normal8.1-13.5MerOhioHealth Shelby Hospital HospitalComment on above:Performed By: #### IRVING MONTE, CP #### [address] [place] [address] Chef German: Gina Mario (Bld) [#/Vol]499 10*3/hEJizi170-875Evgcf [facility]iffin HospitalComment on above:Performed By: #### IRVING MONTE, CP #### [address] [place] [address] Chef German: TIERRA Mario (Bld) [#/Vol]4.75 10*6/uLNormal4.21-5.77[facility] HospitalComment on above:Performed By: #### IRVING MONTE, CP #### [address] [place] [address] Chef German: ANN Mario (Bld) [#/Vol]11.8 10*3/uLHigh3.5-11.3[facility] HospitalComment on above:Performed By: #### IRVING MONTE, CP #### [address] [place] [address] Chef German: Ziggy Hilario MDComp Metabolic Profon 97-16-8244Ntttegq [Mass/Vol] 4.8 g/dLNormal3.5-5.2[facility] HospitalComment on above:Performed By: #### IRVING MONTE, CP #### [address] [place] [address] Chef German: Ziggy Hilario MDAlbumin/Glob Ratio1.1Fqnkvo0.0-2.5White HospitalComment on above:Performed By: #### IRVING MONTE, CP #### [address] [place] [address] Chef German: Tsering Mariokaline Hiay616 U/QQcjheb31-586LjnlqWhite HospitalComment on above:Performed By: #### IRVING MONTE, CP #### [address] [place] [address] Chef German: Ziggy Hilario MDALT [Catalytic activity/Vol]114 U/CFgsw28-99MgczrWhite HospitalComment on above:Performed By: #### IRVING MONTE, CP #### [address] [place] [address] Chef German: Ziggy Hilario MDAnirupert gap [Moles/Vol]16 mmol/LNormal9-16White HospitalComment on above:Performed By: #### IRVING MONTE, CP #### [address] [place] [address] Chef German: Ziggy Hilario MDAST [Catalytic activity/Vol]118 U/UZosy95-86DmntwWhite HospitalComment on above:Performed By: #### IRVING MONTE, CP #### [address] [place], [place] 25[address]83 Chef German: Ziggy Hilario MDBilirubin [Mass/Vol]0.4 mg/dLNormal0.00-1.20White HospitalComment on above:Performed By: #### IRVING MONTE, CP #### [address] [place], [place] [address]83 Chef German: Ziggy Hilario MDBUN/CRE Xfbhv60Citojj0-81Pxeet [facility] Comment on above:Performed By: #### IRVING MONTE, CP #### [address] [place] [address] Chef German: BRITNI Marioalcium [Mass/Vol]10.0 mg/dLNormal8.6-10.4White HospitalComment on above:Performed By: #### IRVING MONTE, CP #### [address] [place] [address] Chef German: BRITNI Mariohloride [Moles/Vol]98 mmol/RRyscdz43-288Voyot [facility]iffin HospitalComment on above:Performed By: #### IRVING MONTE, CP #### [address] [place] [address] Chef German: Ziggy Hilario MDCO2 [Moles/Vol]21 mmol/ORlhogp61-34Rwaay [facility] HospitalComment on above:Performed By: #### IRVING MONTE, CP #### [address] [place] [address] Chef German: BRITNI Marioreatinine [Mass/Vol]1.1 mg/dLNormal0.70-1.20White HospitalComment on above:Performed By: #### IRVING MONTE, CP #### [address] [place], [place] [address]83 Chef German: Ziggy Hilario MDGFR/1.73 sq M.predicted among non-blacks MDRD (S/P/Bld) [Vol rate/Area]78 mL/min/{1.73_m2}Normal>60[facility] Hospital Comment on above:Result Comment: These results are not intended for [...] or following therapy that affects renal tubular secretion.Performed By: #### IRVING MONTE, CP #### [address] [place] [address] Chef German: Ziggy Hilario MDGlucose [Mass/Vol]97 mg/qATtcrdj99-65EyijyWilson Memorial HospitalComment on above:Performed By: #### IRVING MONTE, CP #### [address] [place], [facility] Chef German: SUJATA Mariootassium [Moles/Vol]4.3 mmol/LNormal3.7-5.3MAdena Regional Medical Center HospitalComment on above:Performed By: #### IRVING MONTE, CP #### [address] [place], [facility] Chef German: Ziggy Hilario MDProtein [Mass/Vol]7.6 g/dLNormal6.6-8.7White HospitalComment on above:Performed By: #### IRVING MONTE, CP #### [address] [place] [address] Chef German: Ziggy Hilario MDSodium [Moles/Vol]135 mmol/MWvn161-597TuqvaWhite HospitalComment on above:Performed By: #### IRVING MONTE, CP #### [address] [place] [address] Chef German: Ziggy Hilario MDUrea nitrogen [Mass/Vol]16 mg/dLNormal6-20[facility] on above:Performed By: #### LAVELL, IRVING, CP #### [facility] [address] [place] [address] Chef German: Ziggy Hilario [facility] PAWHUSKAompsumma health wadsworth - rittman medical centerensive Metabolic Panelon 32-58-4740Xnkiwfq [Mass/Vol]4.8 g/dL3.5 - 5.2 g/dLBon [facility] HospitalAlbumin/Globulin [Mass ratio]1.7 {ratio}1.0 - 2.5Bon [facility] HealthALP [Catalytic activity/Vol] 104 U/L40 - 129 U/LBon [facility] HealthALT [Catalytic activity/Vol]114 U/L High10 - 50 U/LBon [facility] HospitalAnion gap [Moles/Vol]16 mmol/L9 - 16 mmol/LBon [facility] HealthAST [Catalytic activity/Vol]118 U/LHigh10 - 50 U/L Bon [facility] HospitalBilirubin [Mass/Vol]0.4 mg/dL0.00 - 1.20 mg/dLBon [facility] HospitalCalcium [Mass/Vol]10.0 mg/dL8.6 - 10.4 mg/dLBon [facility] HospitalChloride [Moles/Vol]98 mmol/L98 - 107 mmol/LBon [facility] CO2 [Moles/Vol]21 mmol/L20 - 31 mmol/LBon [facility] HospitalCreatinine [Mass/Vol]1.1 mg/dL0.70 - 1.20 mg/dLBon [facility] HospitalEst, Glom Filt Rate 78- PINFBon [facility] on above: These results are not intended [...] therapy that affects renal tubular secretion. Glucose [Mass/Vol]97 mg/dL74 - 99 mg/dLBon [facility] HospitalInterpretation and review of laboratory resultsAbnormalBon [facility]cy HealthPotassium [Moles/Vol]4.3 mmol/L3.7 - 5.3 mmol/LBon [facility] HealthProtein [Mass/Vol] 7.6 g/dL6.6 - 8.7 g/dLBon [facility] HealthSodium [Moles/Vol]135 mmol/ZEsr389 - 145 mmol/LBon [facility] HospitalUrea nitrogen [Mass/Vol]16 mg/dL6 - 20 mg/dLBon [facility] HospitalUrea nitrogen/Creatinine [Mass ratio]15 mg/mg9 - 20 Bon [facility] HospitalCult, Bloodon [id number], BloodSpecimen Description .BLOOD Special Requests 12ML RFA Culture [...] read back by: RAMANA ABARCA CMA AT [employer] OFFICE [id number] AT 0849 RB TT Report Status FINAL 05/30/2025NormalWhite HospitalComment on above: Performed By: #### CMPX, CDP #### [address] [place] [address] Chef German: EFREN Mariorug Scr, Abuse, Uron 97-20-2018Ueqeyaeiedy(s),Ur NegativeNormalNEGWhite HospitalComment on above:Result Comment: Cutoff: 1000 ng/mLPerformed By: #### STLPCR #### [facility] [address] [place] [address] [id number] Chef German: Reno Duron MD [address] [place] [address] Chef German: Ziggy Hilario MDBarbiturate(s),UrNegativeNormalNEGMercy Point Pleasant HospitalComment on above:Result Comment: Cutoff: 200 ng/mlPerformed By: #### STLPCR #### [address] [address] Chef German: Reno Duron MD [address] [place], [place] 4101383 Chef German: Ziggy Hilario MDBenzodiazepine(s)NegativeNormalNEGMercy Point Pleasant HospitalComment on above:Result Comment: Cutoff: 200 ng/mlPerformed By: #### STLPCR #### [address] [address] Chef German: Reno Duron MD [address] [place] [id number] Chef German: BRITNI Marioannabinoid(s),UrNegativeNormalNEGMercy Point Pleasant HospitalComment on above:Result Comment: Cutoff: 50 ng/mlPerformed By: #### STLPCR #### [address] [address] Chef German: Reno Duron MD [address] [place] [id number] Chef German: BRITNI Marioocaine MetaboliteNegativeNormalNEGMercy Point Pleasant HospitalComment on above:Result Comment: Cutoff: 300 ng/mlPerformed By: #### STLPCR #### [address] [address] Chef German: Reno Duron MD [address] [place], [place] [id number] Chef German: Ziggy Hilario MDFentanyl, UrineNegativeNormalNEGMercy Point Pleasant HospitalComment on above:Result Comment: Cutoff: 5 ng/mlPerformed By: #### STLPCR #### [address] [address] Chef German: Reno Duron MD [address] [place], [place] [id number] Chef German: Ziggy Hilario MDInterpretive InfoThis method is a screening test to detect only these drug classes as part of aNormalWhite HospitalComment on above:Result Comment: medical workup. Confirmatory testing by another method should be ordered if clinically indicated.Performed By: #### STLPCR #### [address] [address] Chef German: Reno Duron MD [address] [place], [place] [phone] Chef German: NANCY Marioethadone Ql (U)NegativeNormalNEGWhite HospitalComment on above:Result Comment: Cutoff: 300 ng/mlPerformed By: #### STLPCR #### [address] [address] Chef German: Reno Duron MD [address] [place], [place] [phone] Chef German: Ziggy Hilario MDOpiate(s), UrNegativeNormalNEGWhite HospitalComment on above:Result Comment: Cutoff: 300 ng/ml Note: The Opiate screen is not intended to detect Oxycodone.Performed By: #### STLPCR #### [address] [address] Chef German: Reno Duron MD [address] [place], [place] [id number] Chef German: Ziggy Hilario MDOxycodone, UrineNegativeNormalNEGWhite HospitalComment on above:Result Comment: Cutoff: 100 ng/mlPerformed By: #### STLPCR #### [address] [place] [address] Chef German: Reno Duron MD [facility] [address] [place] [address] Chef German: Liliana Mariocyclidine, UrNegativeNormalNEGMercy Natchaug HospitalComment on above:Result Comment: Cutoff: 25 ng/mlPerformed By: #### STLPCR #### [address] [address] Chef German: Reno Duron MD [facility] [address] [place] [address] [place] [address] Chef German: Ziggy Hilario MDEKG 12 LeadOrdered By: Uli Strong on 05-30-2025 Atrial Jjob97HBHPst [employer] Phone: [phone] Ottc19gfideytOguQwikwire Work Phone: P-R [id number] [employer] Phone: Q-T Dxmrcyvl904 [employer] Phone: QRS Bkpmhvam47 [employer] Phone: QTc Calculation (Bazett)432 [employer] Phone: R [place]-2degreesBon [employer] Phone: [phone] Fjpp23tnynvjoPxreTapestry Phone: Ventricular Emcs30DCRGof [employer] Phone: Bon [employer] Phone: [phone] 12 Leadon 17-06-0229Iemgas sinus rhythm Normal ECG When compared with ECG of 17-Mar-2024 14:02, Sinus rhythm has replaced Electronic ventricular pacemaker Confirmed by Uli Strong ([id number]) on 05/30/2025 10:55:51 PMMHPN [facility] RADIOLOGY Uli Strong MD - 05/30/2025 Normal sinus rhythm Normal ECG When compared with ECG of 17-Mar-2024 14:02, Sinus rhythm has replaced Electronic ventricular pacemaker Confirmed by Uli Strong ([id number]) on 05/30/2025 10:55:51 PM Bon [facility] HospitalEthanolon 08-33-8043Ynqsafu percent0.001 %NINF - 0.010 % Bon [facility] HospitalEthanolamine [Mass/Vol]<10NINF - 10 mg/dLBon [facility] SystemEthanol Alcoholon 75-98-2349Ezzrlpt [Mass/Vol]mg/dLNormal<10White HospitalComment on above:Performed By: #### STLPCR #### [address] [id number] Chef German: Reno Duron MD [address] [place] [address] Chef German: Ziggy Hilario MDEthanol percent0.001 %Normal<0.010White HospitalComment on above:Performed By: #### LPCR #### [address] [address] Chef German: Reno Duron MD [address] [place] [id number] Chef German: Ziggy Hilario MDNo Panel Informationon 97-11-8011Fho [facility] HospitalSalicylateon 83-60-2887Qduokinmsuc [Mass/Vol]mg/dL0.0 - 10.0 mg/dLBon [facility] HospitalSalicylate<0.5Lxkuxz3.0-10.0White HospitalComment on above:Performed By: #### SALI, CDP, CP #### [facility] [address] [place] [address] [place] [address] Chef German: Ziggy Hilario MDUrine Drug Screenon 33-20-0163Fcamrnlacftv Ql (U) NegativeNEGATIVEBon Secours Mercy HealthComment on above:Cutoff: 1000 ng/mL Barbiturates Screen Ql (U)NegativeNEGATIVEBon Secours Mercy HealthComment on above:Cutoff: 200 ng/mlBenzodiazepines Ql (U)NegativeNEGATIVEBon Secours Mercy HealthComment on above:Cutoff: 200 ng/mlCannabinoids Screen Ql (U)Negative NEGATIVEBon Secours Mercy HealthComment on above:Cutoff: 50 ng/mlCocaine Ql (U) NegativeNEGATIVEBon Secours Mercy HealthComment on above:Cutoff: 300 ng/ml fentaNYL Ql (U)NegativeNEGATIVEBon Secours Mercy HealthComment on above:Cutoff: 5 ng/mlMethadone Ql (U)NegativeNEGATIVEBon Secours Mercy HealthComment on above: Cutoff: 300 ng/mlOpiates Screen Ql (U)NegativeNEGATIVEBon Secours Mercy Health Comment on above:Cutoff: 300 ng/ml Note: The Opiate screen is not intended to detect Oxycodone. oxyCODONE Ql (U)NegativeNEGATIVEBon Secours Mercy HealthComment on above:Cutoff: 100 ng/mlPhencyclidine Ql (U)NegativeNEGATIVEBon Secours Mercy HealthComment on above:Cutoff: 25 ng/mlTest InformationThis method is a screening test to detect only these drug classes as part of a medical workup. Confirmatory testing by another method should be ordered if clinically indicated.Altagracia Edmonds [facility] Centerbecca [facility] SecLake Chelan Community Hospitaly HealthXR CHEST (2 VW)on [id number] CHEST (2 VW)EXAM: 2 VIEW(S) XRAY OF THE CHEST 05/30/2025 [...] by: Octavio Kwon IV, MD 05/30/25 Final resultNormalMercy Natchaug HospitalXR Chest 2 Viewson . No acute process. MHPN RIS CONSOLIDATEDEXAM: 2 VIEW(S) XRAY OF THE CHEST 05/30/2025 [...] of thoracic spine. No acute osseous abnormality. [facility] Octavio Guerra IV, MD - 05/30/2025 EXAM: 2 VIEW(S) [...] osseous abnormality. IMPRESSION: 1. No acute process. [facility] CenterRadiology Study observation (narrative)[facility] CenterXR Chest 2 ViewsOrdered By: Octavio Kwon on [id number] Hospital Center Work Phone: cbc auto differentialon [id number] (Bld) [#/Vol]0.09 10*3/uLBon [facility] HospitalBasophils/100 WBC (Bld)1 %0 - 2 %[facility] CenterEosinophils (Bld) [#/Vol]0.14 10*3/uLBon [facility] HospitalEosinophils/100 WBC (Bld)1 %1 - 4 %[facility] CenterErythrocyte distribution width (RBC) [Ratio]14.3 %11.8 - 14.4 %[facility] Hematocrit (Bld) [Volume fraction]36.4 %Low40.7 - 50.3 %[facility] Hemoglobin (Bld) [Mass/Vol]11.3 g/dLLow13.0 - 17.0 g/dLBon [facility] Immature granulocytes (Bld) [#/Vol]0.09 10*3/uLBon [facility] HospitalImmature granulocytes/100 WBC (Bld)1 %Ywyt4DkoWinchester Medical CenterInterpretation and review of laboratory resultsAbnormalBon [facility] HospitalLymphocytes/100 WBC (Bld)34 %24 - 43 %[facility] CenterLymphocytes/100 WBC (Bld)3.74 %HighBon [facility] HospitalH (RBC) [Entitic mass]29 pg25.2 - 33.5 pgRiverside Behavioral Health CenterHC (RBC) [Mass/Vol]31 g/dL28.4 - 34.8 g/dLBon [facility] MCV (RBC) [Entitic vol]93.3 fL82.6 - 102.9 fLWinchester Medical Center Monocytes/100 WBC (Bld)11 %3 - 12 %[facility] CenterMonocytes/100 WBC (Bld)1.16 %[facility] CenterNeutrophils/100 WBC (Bld)52 %36 - 65 %[facility] CenterNucleated RBC/100 WBC (Bld) [Ratio]0 %0.0 per 100 WBCWinchester Medical CenterPlatelet mean volume (Bld) [Entitic vol]9.8 fL8.1 - 13.5 fL [facility] CenterPlatelets (Bld) [#/Vol]396 10*3/uLWinchester Medical CenterRBC (Bld) [#/Vol]3.9 10*6/uLLow4.21 - 5.77 m/uLWinchester Medical Center Segmented neutrophils/100 WBC (Bld)5.69 %[facility] Medical CenterWBC other (Bld) [#/Vol]10.9Bon [facility] SystemCBC with Diffon [id number]. Basophil0.09 k/uLNormal0.00-0.20White HospitalComment on above:Performed By: #### CMPX, CDP #### [facility] [address] [place] [address] [place] [address] Chef German: Chen Mario.Imm.Granulocyte0.09 k/uLNormal0.00-0.30[facility] HospitalComment on above:Performed By: #### CMPX, CDP #### [address] [place] [address] Chef German: Chen Mario.Neutrophil (Seg)5.69 k/uLNormal1.50-8.10[facility] HospitalComment on above:Performed By: #### CMPX, CDP #### [address] [place] [address] Chef German: Ziggy Hilario MDBasophils/100 WBC (Bld)1 %Normal0-2MAdena Regional Medical Center HospitalComment on above:Performed By: #### CMPX, CDP #### [address] [place], [place] [address] Chef German: Ziggy Hilario MDEosinophils (Bld) [#/Vol]0.14 10*3/uLNormal 0.00-0.44[facility] HospitalComment on above:Performed By: #### CMPX, CDP #### [address] [place] [address] Chef German: BLAIR Marioosinophils/100 WBC (Bld)1 %Normal1-4[facility] HospitalComment on above:Performed By: #### CMPX, CDP #### [address] [place] [address] Chef German: Ziggy Hilario MDErythrocyte distribution width (RBC) [Ratio]14.3 % Ilagwe05.8-14.4[facility] HospitalComment on above:Performed By: #### CMPX, CDP #### [address] [place] [address] Chef German: Ziggy Hilario MDHematocrit (Bld) [Volume fraction]36.4 %Low 40.7-50.3MAdena Regional Medical Center HospitalComment on above:Performed By: #### CMPX, CDP #### [address] [place], [place] 765[address]83 Chef German: Ziggy Hilario MDHemoglobin (Bld) [Mass/Vol]11.3 g/dLLow13.0-17.0 White HospitalComment on above:Performed By: #### CMPX, CDP #### [address] [place], [place] 135[address]83 Chef German: Janell Mariomature granulocytes/100 WBC (Bld)1 %Cwrf0IzoorWhite HospitalComment on above:Performed By: #### CMPX, CDP #### [address] [place], [place] [phone] Chef German: Ziggy Hilario MDLymphocytes (Bld) [#/Vol]3.74 10*3/uLHigh1.10-3.70 White HospitalComment on above:Performed By: #### CMPX, CDP #### [address] [place], [place] 0427683 Chef German: Jacki Mariomphocytes/100 WBC (Bld)34 %Flnzgx98-05GqlahWhite HospitalComment on above:Performed By: #### CMPX, CDP #### [address] [place] [address] Chef German: NANCY MarioCH (RBC) [Entitic mass]29.0 hfUvuzml98.2-33.5 White HospitalComment on above:Performed By: #### CMPX, CDP #### [address] [place], [place] [phone] Chef German: NANCY MarioCHC (RBC) [Mass/Vol]31.0 g/lSWaazfk67.4-34.8White HospitalComment on above:Performed By: #### CMPX, CDP #### [address] [place] [address] Chef German: NANCY MarioCV (RBC) [Entitic vol]93.3 wLQmpuii70.6-102.9 White HospitalComment on above:Performed By: #### CMPX, CDP #### [address] [place] [address] Chef German: NANCY Marioonocytes (Bld) [#/Vol]1.16 10*3/uLNormal0.10-1.20 White HospitalComment on above:Performed By: #### CMPX, CDP #### [address] [place] [address] Chef German: NANCY Marioonocytes/100 WBC (Bld)11 %Normal3-12White HospitalComment on above:Performed By: #### CMPX, CDP #### [address] [place] [address] Chef German: Ziggy Hilario MDNeutrophil (Seg)52 %Buwuef75-67IhxjgWhite HospitalComment on above:Performed By: #### CMPX, CDP #### [address] [place] [address] Chef German: Ziggy Hilario MDNRBC Automated0.0 per 100 WBCNormal0.0White HospitalComment on above:Performed By: #### CMPX, CDP #### [address] [place], [place] 2031783 Chef German: SUJATA Mariolatelet mean volume (Bld) [Entitic vol]9.8 fL Normal8.1-13.5[facility] HospitalComment on above:Performed By: #### CMPX, CDP #### [address] [place], [place] 6759483 Chef German: Gina Mario ([facility]) [#/Vol]396 10*3/tMQnlxsv847-713 [facility] HospitalComment on above:Performed By: #### CMPX, CDP #### [address] [place], [place] [id number] Chef German: TIERRA Mario ([facility]) [#/Vol]3.90 10*6/uLLow4.21-5.77MerOhioHealth Shelby Hospital HospitalComment on above:Performed By: #### CMPX, CDP #### [address] [place] [address] Chef German: ANN Mario ([facility]) [#/Vol]10.9 10*3/uLNormal3.5-11.3[facility] HospitalComment on above:Performed By: #### CMPX, CDP #### [address] [place], [place] 5965283 Chef German: BRITNI Marioomp Metabolic Pr/rfx MGon 87-99-8083Kcveccc [Mass/Vol]3.9 g/dLNormal3.5-5.2[facility] HospitalComment on above:Performed By: #### CMPX, CDP #### [address] [place], [place] 5987383 Chef German: Ziggy Hilario MDAlbumin/Glob Ratio1.2Hfafwn5.0-2.5[facility] HospitalComment on above:Performed By: #### CMPX, CDP #### [address] [place], [place] 8[address]1283 Chef German: Marlena Mario Phos93 U/BZurcet94-643QfwmvWhite HospitalComment on above:Performed By: #### CMPX, CDP #### [address] [place], [place] 7779883 Chef German: Ziggy Hilario MDALT [Catalytic activity/Vol]63 U/NJhrg26-28LjupwWhite HospitalComment on above:Performed By: #### CMPX, CDP #### [facility] [address] [place] [address] Dr. [place], [place] 7300783 Chef German: Ziggy Hilario MDAnion gap [Moles/Vol]10 mmol/LNormal9-16White HospitalComment on above:Performed By: #### CMPX, CDP #### [address] [place], [place] 6561483 Chef German: Ziggy Hilario MDAST [Catalytic activity/Vol]51 U/OGosx80-62AgersWhite HospitalComment on above:Performed By: #### CMPX, CDP #### [address] [place], [place] 5168383 Chef German: Ziggy Hilario MDBilirubin [Mass/Vol]mg/dLNormal0.00-1.20White HospitalComment on above:Performed By: #### CMPX, CDP #### [facility] [address] [place] [address] Dr. [place], [place] 6285383 Chef German: Ziggy Hilario MDBUN/CRE Zrjjs06Nfcfag9-53Ioktg [facility] Comment on above:Performed By: #### CMPX, CDP #### [address] [place], [place] 3902883 Chef German: BRITNI Marioalcium [Mass/Vol]9.1 mg/dLNormal8.6-10.4White HospitalComment on above:Performed By: #### CMPX, CDP #### [facility] [address] [place], [place] [address]83 Chef German: BRITNI Mariohloride [Moles/Vol]103 mmol/OFlpdcv52-144ZlqmnWhite HospitalComment on above:Performed By: #### CMPX, CDP #### [facility] [address] [place] [address] Chef German: Ziggy Hialrio MDCO2 [Moles/Vol]26 mmol/UStccok63-40EvqqaWhite HospitalComment on above:Performed By: #### CMPX, CDP #### [address] [place], [place] 8464283 Chef German: BRITNI Marioreatinine [Mass/Vol]1.2 mg/dLNormal0.70-1.20White HospitalComment on above:Performed By: #### CMPX, CDP #### [address] [place] [address] Chef German: Ziggy Hilario MDGFR/1.73 sq M.predicted among non-blacks MDRD (S/P/Bld) [Vol rate/Area]71 mL/min/{1.73_m2}Normal>60White Hospital Comment on above:Result Comment: These results are not intended for [...] or following therapy that affects renal tubular secretion.Performed By: #### CMPX, CDP #### [address] [place] [address] Chef German: Ziggy Hilario MDGlucose [Mass/Vol]221 mg/bLJjkn39-37ZxwpwWilson Memorial HospitalComment on above:Performed By: #### CMPX, CDP #### [address] [place], [place] 3059483 Chef German: Ziggy Hilario MDPotassium [Moles/Vol]4.4 mmol/LNormal3.7-5.3MercCharlotte Hungerford HospitalComment on above:Performed By: #### CMPX, CDP #### [address] [place], [place] 0268583 Chef German: Ziggy Hilario MDProtein [Mass/Vol]6.1 g/dLLow6.6-8.7White HospitalComment on above:Performed By: #### CMPX, CDP #### [address] [place], [place] 6908483 Chef German: Ziggy Hilario MDSodium [Moles/Vol]139 mmol/CIhkgfu283-238NtmuhWhite HospitalComment on above:Performed By: #### CMPX, CDP #### [address] [place], [place] 9[address]2583 Chef German: Ziggy Hilario MDUrea nitrogen [Mass/Vol]18 mg/dLNormal6-20White HospitalComment on above:Performed By: #### CMPX, CDP #### [address] [place] [address] Chef German: BRITNI Marioomprehensive Metabolic Panel w/ Reflex to MGon 12-59-5937Evclgmu [Mass/Vol]3.9 g/dL3.5 - 5.2 g/dLBon [facility] Albumin/Globulin [Mass ratio]1.8 {ratio}1.0 - 2.5Bon [facility] HospitalALP [Catalytic activity/Vol]93 U/L40 - 129 U/LBon [facility] HospitalALT [Catalytic activity/Vol]63 U/LHigh10 - 50 U/LBon [facility] HospitalAnion gap [Moles/Vol] 10 mmol/L9 - 16 mmol/LBon [facility] HospitalAST [Catalytic activity/Vol]51 U/L High10 - 50 U/LBon [facility] HospitalBilirubin [Mass/Vol]mg/dL0.00 - 1.20 mg/dLBon [facility] HospitalCalcium [Mass/Vol]9.1 mg/dL8.6 - 10.4 mg/dLBon [facility] HospitalChloride [Moles/Vol]103 mmol/L98 - 107 mmol/LBon [facility] HospitalCO2 [Moles/Vol]26 mmol/L20 - 31 mmol/LBon [facility] Creatinine [Mass/Vol]1.2 mg/dL0.70 - 1.20 mg/dLBon [facility] HospitalEst, Glom Filt Rate71- PINFBon [facility] HospitalComment on above: These results are not intended [...] therapy that affects renal tubular secretion. Glucose [Mass/Vol]221 mg/jBIeri35 - 99 mg/dLBon [facility] Interpretation and review of laboratory resultsAbnoFauquier Health System Potassium [Moles/Vol]4.4 mmol/L3.7 - 5.3 mmol/LBon [facility] HospitalProtein [Mass/Vol]6.1 g/dLLow6.6 - 8.7 g/dLBon [facility] HospitalSodium [Moles/Vol]139 mmol/L136 - 145 mmol/LBon [facility] HospitalUrea nitrogen [Mass/Vol]18 mg/dL6 - 20 mg/dLBon [facility] HospitalUrea nitrogen/Creatinine [Mass ratio]15 mg/mg 9 - 20Bon [facility] SystemGlucose, Whole Bloodon 49-12-5704Eucviiu [Mass/Vol]71 mg/dLLow74 - 100 mg/dLBon [facility] Interpretation and review of laboratory resultsAbnormalWinchester Medical Center Bon [facility] HospitalGlucose [Mass/Vol]71 mg/pAPja57-765Otfxx [facility] Glucose [Mass/Vol]66 mg/dLLow74 - 100 mg/dLBon [facility] Interpretation and review of laboratory resultsAbnormWythe County Community Hospital Bon [facility] HospitalGlucose [Mass/Vol]66 mg/cENvc99-488RkjzzWhite Hospital Glucose [Mass/Vol]214 mg/mUIrvd24 - 100 mg/dLBon [facility] Interpretation and review of laboratory resultsAbnormalWinchester Medical Center Bon [facility] HospitalGlucose [Mass/Vol]214 mg/dXPmta41-959RthxzWhite HospitalCBC auto differentialon [id number] (Bld) [#/Vol]0.11 10*3/uLBon [facility] HospitalBasophils/100 WBC (Bld)1 %0 - 2 %[facility] Eosinophils (Bld) [#/Vol]0.11 10*3/uLBon [facility] HospitalEosinophils/100 WBC (Bld)1 %1 - 4 %[facility] Medical CenterErythrocyte distribution width (RBC) [Ratio]13.7 %11.8 - 14.4 %[facility] Medical CenterHematocrit (Bld) [Volume fraction]37.7 %Low40.7 - 50.3 %[facility] Medical CenterHemoglobin (Bld) [Mass/Vol]12.1 g/dLLow13.0 - 17.0 g/dLBon [facility] HospitalImmature granulocytes (Bld) [#/Vol]0.11 10*3/uLBon [facility] HospitalImmature granulocytes/100 WBC (Bld)1 %Npmq2Paq [facility] HospitalInterpretation and review of laboratory resultsAbnormalWinchester Medical CenterLymphocytes/100 WBC (Bld)32 %24 - 43 %[facility] Medical CenterLymphocytes/100 WBC (Bld)3.68 %[facility] CenterH (RBC) [Entitic mass]28.8 pg25.2 - 33.5 pgBon [facility] HospitalHC (RBC) [Mass/Vol]32.1 g/dL28.4 - 34.8 g/dLBon [facility] HospitalMCV (RBC) [Entitic vol]89.8 fL82.6 - 102.9 fLWinchester Medical Center Monocytes/100 WBC (Bld)11 %3 - 12 %[facility] CenterMonocytes/100 WBC (Bld)1.23 %HighWinchester Medical CenterNeutrophils/100 WBC (Bld)54 %36 - 65 %[facility] Medical CenterNucleated RBC/100 WBC (Bld) [Ratio]0 %0.0 per 100 WBCWinchester Medical CenterPlatelet mean volume (Bld) [Entitic vol]9.6 fL8.1 - 13.5 fL [facility] CenterPlatelets (Bld) [#/Vol]452 10*3/uLWinchester Medical CenterRBC (Bld) [#/Vol]4.2 10*6/uLLow4.21 - 5.77 m/uLWinchester Medical Center Segmented neutrophils/100 WBC (Bld)6.25 %[facility] Medical CenterWBC other (Bld) [#/Vol]11.5HighSouthampton Memorial HospitalCBC with Diffon [id number]. Basophil0.11 k/uLNormal0.00-0.20MerOhioHealth Shelby Hospital HospitalComment on above:Performed By: #### CMPX, CDP #### [address] [place] [id number] Chef German: Chen Mario.Imm.Granulocyte0.11 k/uLNormal0.00-0.30MerOhioHealth Shelby Hospital HospitalComment on above:Performed By: #### CMPX, CDP #### [address] [place], [facility] Chef German: Chen Mario.Neutrophil (Seg)6.25 k/uLNormal1.50-8.10MerNatchaug HospitalComment on above:Performed By: #### CMPX, CDP #### [address] [place] [address] Chef German: Ziggy Hilario MDBasophils/100 WBC (Bld)1 %Normal0-2Mer[facility] Point Pleasant HospitalComment on above:Performed By: #### CMPX, CDP #### [address] [place], [facility] Chef German: Ziggy Hilario MDEosinophils (Bld) [#/Vol]0.11 10*3/uLNormal 0.00-0.44[facility] HospitalComment on above:Performed By: #### CMPX, CDP #### [address] [place] [address] Chef German: Ziggy Hilario MDEosinophils/100 WBC (Bld)1 %Normal1-4MerOhioHealth Shelby Hospital HospitalComment on above:Performed By: #### CMPX, CDP #### [address] [place], [place] [address] Chef German: Ziggy Hilario MDErythrocyte distribution width (RBC) [Ratio]13.7 % Jfyegq37.8-14.4White HospitalComment on above:Performed By: #### CMPX, CDP #### [address] [place] [address] Chef German: Ziggy Hilario MDHematocrit (Bld) [Volume fraction]37.7 %Low 40.7-50.3Mer[facility] Point Pleasant HospitalComment on above:Performed By: #### CMPX, CDP #### [address] [place] [id number] Chef German: Ziggy Hilario MDHemoglobin (Bld) [Mass/Vol]12.1 g/dLLow13.0-17.0 White HospitalComment on above:Performed By: #### CMPX, CDP #### [address] [place], [facility] Chef German: Ziggy Hilario MDImmature granulocytes/100 WBC (Bld)1 %Evkt9MlryeWhite HospitalComment on above:Performed By: #### CMPX, CDP #### [address] [place], [place] [id number] Chef German: Ziggy Hilario MDLymphocytes (Bld) [#/Vol]3.68 10*3/uLNormal 1.10-3.70[facility] HospitalComment on above:Performed By: #### CMPX, CDP #### [address] [place], [place] [id number] Chef German: Jacki Mariomphocytes/100 WBC (Bld)32 %Dpbrai03-42Hhehu Tiffin HospitalComment on above:Performed By: #### CMPX, CDP #### [address] [place], [facility] Chef German: NANCY MarioCH (RBC) [Entitic mass]28.8 npFxoufh17.2-33.5 [facility] HospitalComment on above:Performed By: #### CMPX, CDP #### [address] [place], [place] [address]83 Chef German: DARLING MarioC (RBC) [Mass/Vol]32.1 g/mKLsskvm88.4-34.8[facility] HospitalComment on above:Performed By: #### CMPX, CDP #### [address] [place], [place] [id number] Chef German: NANCY MarioCV (RBC) [Entitic vol]89.8 cXQdcglx99.6-102.9 [facility] HospitalComment on above:Performed By: #### CMPX, CDP #### [address] [place] [address] Chef German: NANCY Marioonocytes (Bld) [#/Vol]1.23 10*3/uLHigh0.10-1.20 White HospitalComment on above:Performed By: #### CMPX, CDP #### [address] [place], [place] [address]83 Chef German: NANCY Marioonocytes/100 WBC (Bld)11 %Normal3-12[facility] HospitalComment on above:Performed By: #### CMPX, CDP #### [address] [place], [place] [id number] Chef German: Pee Marioophil (Seg)54 %Ftzgsi63-41YafydWhite HospitalComment on above:Performed By: #### CMPX, CDP #### [address] [place], [place] [address]83 Chef German: Ziggy Hilario MDNRBC Automated0.0 per 100 WBCNormal0.0[facility] HospitalComment on above:Performed By: #### CMPX, CDP #### [address] [place] [address] Chef German: Yessi Mariotelet mean volume (Bld) [Entitic vol]9.6 fL Normal8.1-13.5White HospitalComascension providence hospital on above:Performed By: #### CMPX, CDP #### [address] [place] [address] Chef German: Ziggy Hilario MDPlatelets (Bld) [#/Vol]452 10*3/nRRuclqs012-087 [facility] HospitalComment on above:Performed By: #### CMPX, CDP #### [address] [place], [place] 1478383 Chef German: Ziggy Hilario MDRBC (Bld) [#/Vol]4.20 10*6/uLLow4.21-5.77[facility] HospitalComment on above:Performed By: #### CMPX, CDP #### [address] [place], [place] [id number] Chef German: ANN Mario ([facility]) [#/Vol]11.5 10*3/uLHigh3.5-11.3MAdena Regional Medical Center HospitalComment on above:Performed By: #### CMPX, CDP #### [address] [place] [address] Chef German: BRITNI Marioomp Metabolic Pr/rfx MGon 87-19-0027Kpvqpjv [Mass/Vol]4.1 g/dLNormal3.5-5.2MAdena Regional Medical Center HospitalComment on above:Performed By: #### CMPX, CDP #### [address] [place] [address] Chef German: Ziggy Hilario MDAlbumin/Glob Ratio1.0Ymqjux1.0-2.5White HospitalComment on above:Performed By: #### CMPX, CDP #### [address] [place] [address] Chef German: Dusty Marioline Qmtc438 U/TZjlgib64-474FtqujWhite HospitalComment on above:Performed By: #### CMPX, CDP #### [address] [place] [address] Chef German: Ziggy Hilario MDALT [Catalytic activity/Vol]78 U/STdhe88-72WcovkWhite HospitalComment on above:Performed By: #### CMPX, CDP #### [address] [place] [address] Chef German: Ziggy Hilario MDAnirupert gap [Moles/Vol]11 mmol/LNormal9-16White HospitalComment on above:Performed By: #### CMPX, CDP #### [facility] [address] [place] [address] Dr[place], [place] [id number] Chef German: Ziggy Hilario MDAST [Catalytic activity/Vol]73 U/VVgca41-90SktjdWhite HospitalComment on above:Performed By: #### CMPX, CDP #### [address] [place], [place] [address]83 Chef German: Ziggy Hilario MDBilirubin [Mass/Vol]0.3 mg/dLNormal0.00-1.20White HospitalComment on above:Performed By: #### CMPX, CDP #### [address] [place] [address] Chef German: Ziggy Hilario MDBUN/CRE Dnqfy04Exkeji4-06Tritz [facility] Comment on above:Performed By: #### CMPX, CDP #### [address] [place], [place] [address]83 Chef German: BRITNI Marioalcium [Mass/Vol]9.0 mg/dLNormal8.6-10.4MerNatchaug HospitalComment on above:Performed By: #### CMPX, CDP #### [address] [place] [address] Chef German: BRITNI Mariohloride [Moles/Vol]101 mmol/DOiomfp75-370LrntsWhite HospitalComment on above:Performed By: #### CMPX, CDP #### [address] [place], [place] [address]83 Chef German: Ziggy Hilario MDCO2 [Moles/Vol]26 mmol/KCzllki68-70UsvleWhite HospitalComment on above:Performed By: #### CMPX, CDP #### [address] [place] [address] Chef German: BRITNI Marioreatinine [Mass/Vol]1.2 mg/dLNormal0.70-1.20White HospitalComment on above:Performed By: #### CMPX, CDP #### [address] [place] [address] Chef German: Ziggy Hilario MDGFR/1.73 sq M.predicted among non-blacks MDRD (S/P/Bld) [Vol rate/Area]74 mL/min/{1.73_m2}Normal>60[facility] Comment on above:Result Comment: These results are not intended for [...] or following therapy that affects renal tubular secretion.Performed By: #### CMPX, CDP #### [address] [place] [address] Chef German: Ziggy Hilario MDGlucose [Mass/Vol]166 mg/tPBxxz65-37Vgvzh [place]atchaug HospitalComment on above:Performed By: #### CMPX, CDP #### [address] [place] [address] Chef German: SUJATA Mariootassium [Moles/Vol]4.3 mmol/LNormal3.7-5.3Muniversity hospitals lake west medical centery Point Pleasant HospitalComment on above:Performed By: #### CMPX, CDP #### [address] [place] [address] Chef German: Ziggy Hilario MDProtein [Mass/Vol]6.5 g/dLLow6.6-8.7White HospitalComment on above:Performed By: #### CMPX, CDP #### [facility] [address] [place] [address] Chef German: PIEDAD Marioodium [Moles/Vol]138 mmol/OWzqafk089-444HzhnwWhite HospitalComment on above:Performed By: #### CMPX, CDP #### [facility] [address] [place] [address] Chef German: Ziggy Hilario MDUrea nitrogen [Mass/Vol]19 mg/dLNormal6-20White HospitalComment on above:Performed By: #### CMPX, CDP #### [facility] [address] [place] [address] Chef German: BRITNI Marioomprehensive Metabolic Panel w/ Reflex to MGon [id number] [Mass/Vol]4.1 g/dL3.5 - 5.2 g/dLBon [facility] Albumin/Globulin [Mass ratio]1.8 {ratio}1.0 - 2.5Bon [facility] HealthALP [Catalytic activity/Vol]100 U/L40 - 129 U/LBon [facility] HealthALT [Catalytic activity/Vol]78 U/LHigh10 - 50 U/LBon [facility] HospitalAnion gap [Moles/Vol]11 mmol/L9 - 16 mmol/LBon [facility] HealthAST [Catalytic activity/Vol]73 U/LHigh10 - 50 U/LBon [facility] HospitalBilirubin [Mass/Vol] 0.3 mg/dL0.00 - 1.20 mg/dLBon [facility] HospitalCalcium [Mass/Vol]9 mg/dL8.6 - 10.4 mg/dLBon [facility] HealthChloride [Moles/Vol]101 mmol/L98 - 107 mmol/L Bon [facility] HealthCO2 [Moles/Vol]26 mmol/L20 - 31 mmol/LBon [facility] HospitalCreatinine [Mass/Vol]1.2 mg/dL0.70 - 1.20 mg/dLBon [facility] Est, Glom Filt Rate74- PINFBon [facility] HospitalComment on above: These results are not intended [...] therapy that affects renal tubular secretion. Glucose [Mass/Vol]166 mg/fKXkmc25 - 99 mg/dLBon [facility] Interpretation and review of laboratory resultsAbnoFauquier Health System Potassium [Moles/Vol]4.3 mmol/L3.7 - 5.3 mmol/LBon [facility] HospitalProtein [Mass/Vol]6.5 g/dLLow6.6 - 8.7 g/dLBon [facility] HospitalSodium [Moles/Vol]138 mmol/L136 - 145 mmol/LBon [facility] HospitalUrea nitrogen [Mass/Vol]19 mg/dL6 - 20 mg/dLBon [facility] HospitalUrea nitrogen/Creatinine [Mass ratio]16 mg/mg 9 - 20Bon [facility] SystemEKG Rhythm Stripon [id number] Baywood Medical CenterGlucose, Whole Bloodon 05-26-2025 Glucose [Mass/Vol]103 mg/cTWhus50-032VfkWinchester Medical CenterInterpretation and review of laboratory resultsAbnormLake Taylor Transitional Care HospitalGlucose [Mass/Vol]138 mg/lAFptc78 - 100 mg/dLBon [facility] Interpretation and review of laboratory resultsAbnoMid Dakota Medical CenterGlucose [Mass/Vol]138 mg/uHNnpp69-721KbgevWhite HospitalGlucose [Mass/Vol]105 mg/kOLjps50 - 100 mg/dLBon [facility] Interpretation and review of laboratory resultsAbnoMid Dakota Medical CenterGlucose [Mass/Vol]105 mg/jXIymd37-509DloxmWhite HospitalGlucose [Mass/Vol]94 mg/dL74 - 100 mg/dLBon [facility] SystemGlucose [Mass/Vol]94 mg/dJBzwxsb16-381WkscyWhite Hospital Procalcitoninon 69-11-9657Orzdjpwtqxewl [Mass/Vol]0.04 ng/mL0.00 - 0.09 ng/mLBath Community Hospital on above: Suspected Sepsis: <0.50 ng/mL Low likelihood of sepsis. 0.50-2.00 ng/mL Increased likelihood of sepsis. Antibiotics encouraged. >2.00 ng/mL High risk of sepsis/shock. Antibiotics strongly encouraged. Suspected Lower Resp Tract Infections: <0.24 ng/mL Low likelihood of bacterial infection. >0.24 ng/mL Increased likelihood of bacterial infection. Antibiotics encouraged. With successful antibiotic therapy, PCT levels should decrease rapidly. (Half- life of 24 to 36 hours.) Procalcitonin values from samples collected within the first 6 hours of systemic infection may still be low. Retesting may be indicated. Values from day 1 and day 4 can be entered into the Change in Procalcitonin Calculator (www.jejuus-elo-jugndxqrtj.MOVL) to determine the patient's Mortality Risk Prognosis In healthy neonates, plasma Procalcitonin (PCT) concentrations increase gradually after , reaching peak values at about 24 hours of age then decrease to normal values below 0.5 ng/mL by 48-72 hours of age. [facility]inchester Medical CenterProcalcitonin0.04 ng/mLNormal0.00-0.09[facility] on above:Result Comment: Suspected Sepsis: <0.50 ng/mL Low likelihood [...] entered into the Change in Procalcitonin Calculator (www.cmvkrt-kut-rcfxvjepbq.com) to determine the patient's Mortality Risk Prognosis In healthy neonates, plasma Procalcitonin (PCT) concentrations increase gradually after , reaching peak values at about 24 hours of age then decrease to normal values below 0.5 ng/mL by 48-72 hours of age.Performed By: #### [facility] #### [place] [id number] [place] [id number] Chef German: Reno Duron MD ABDOMEN COMPLETEon [id number] ABDOMEN COMPLETEEXAM: COMPLETE ABDOMINAL ULTRASOUND TECHNIQUE: Real-time ultrasonography of the abdomen was performed. COMPARISON: None available. CLINICAL HISTORY: Pain to right upper quadrant. FINDINGS: LIVER: The liver demonstrates normal echogenicity. No intrahepatic biliary ductal dilatation. No mass. BILIARY SYSTEM: Gallbladder is surgically absent. The common bile duct measures 3.1 mm. No pericholecystic fluid orwall thickening. No cholelithiasis. Negative sonographic Beltran's sign. KIDNEYS: The kidneys are unremarkable in appearance without evidence of hydronephrosis, echogenic calculi orworrisome mass lesions. PANCREAS: Visualized portions of the pancreas are unremarkable. SPLEEN: No acute abnormality. Spleen is within normal limits in size. IVC: The IVC is patent. AORTA: Aorta is patent. No aneurysm. OTHER: No ascites. IMPRESSION: 1. No acute findings. 2. Gallbladder surgically absent. Interpreted by: Aleksandr Jean Baptiste MD Signed by: Aleksandr Jean Baptiste MD 05/26/25 Final resultNormalMercy Windham Hospital Abdomenon . No acute findings. 2. Gallbladder surgically absent. [facility] RIS CONSOLIDATEDEXAM: COMPLETE ABDOMINAL ULTRASOUND TECHNIQUE: Real-time ultrasonography of the abdomen was performed. COMPARISON: None available. CLINICAL HISTORY: Pain to right upper quadrant. FINDINGS: LIVER: The liver demonstrates normal echogenicity. No intrahepatic biliary ductal dilatation. No mass. BILIARY SYSTEM: Gallbladder is surgically absent. The common bile duct measures 3.1 mm. No pericholecystic fluid orwall thickening. No cholelithiasis. Negative sonographic Beltran's sign. KIDNEYS: The kidneys are unremarkable in appearance without evidence of hydronephrosis, echogenic calculi orworrisome mass lesions. PANCREAS: Visualized portions of the pancreas are unremarkable. SPLEEN: No acute abnormality. Spleen is within normal limits in size. IVC: The IVC is patent. AORTA: Aorta is patent. No aneurysm. OTHER: No ascites. [facility] Aleksandr Michele MD - 05/26/2025 EXAM: COMPLETE ABDOMINAL ULTRASOUND TECHNIQUE: Real-time ultrasonography of the abdomen was performed. COMPARISON: None available. CLINICAL HISTORY: Pain to right upper quadrant. FINDINGS: LIVER: The liver demonstrates normal echogenicity. No intrahepatic biliary ductal dilatation. No mass. BILIARY SYSTEM: Gallbladder is surgically absent. The common bile duct measures 3.1 mm. No pericholecystic fluid orwall thickening. No cholelithiasis. Negative sonographic Beltran's sign. KIDNEYS: The kidneys are unremarkable in appearance without evidence of hydronephrosis, echogenic calculi orworrisome mass lesions. PANCREAS: Visualized portions of the pancreas are unremarkable. SPLEEN: No acute abnormality. Spleen is within normal limits in size. IVC: The IVC is patent. AORTA: Aorta is patent. No aneurysm. OTHER: No ascites. IMPRESSION: 1. No acute findings. 2. Gallbladder surgically absent. [facility] [employer]PRadiology Study observation (narrative)[facility] [employer] AbdomenOrdered By: Aleksandr Jean Baptiste on [id number] [employer] Work Phone: XR CHEST (2 VW)on [id number] CHEST (2 VW) EXAMINATION: TWO XRAY VIEWS [...] Signed by: Ziggy Lyn MD 05/26/25 Final resultOhioHealth Shelby HospitalXR Chest 2 Viewson 05-26-2025 Hyperaeration with no acute cardiopulmonary process seen. [facility] RIS CONSOLIDATEDEXAMINATION: TWO XRAY VIEWS OF THE CHEST 05/25/2025 [...] Hyperaeration suggestive of COPD. Flattening the hemidiaphragms. [facility] Ziggy Salomon MD - 05/26/2025 EXAMINATION: TWO XRAY VIEWS [...] Hyperaeration with no acute cardiopulmonary process seen. [facility] [employer] [facility] HospitalXR Chest 2 ViewsOrdered By: Ziggy Lyn on [id number] [facility] Joseph'S HospitalGC-Rise Pharmaceutical Ashtabula County Medical CenterPodimetrics Work Phone: cbc with Auto Differentialon [id number] (Bld) [#/Vol]0.13 10*3/uLBon [facility] HospitalBasophils/100 WBC (Bld)1 %0 - 2 %Winchester Medical CenterEosinophils (Bld) [#/Vol]0.09 10*3/uLBon [facility] HospitalEosinophils/100 WBC (Bld)1 %1 - 4 %[facility] [employer] SolutionsErythrocyte distribution width (RBC) [Ratio]13.5 %11.8 - 14.4 %August[facility] HealthAccenx TechnologiesStafford Hospital Hematocrit (Bld) [Volume fraction]37.2 %Low40.7 - 50.3 %[facility] Hemoglobin (Bld) [Mass/Vol]12.2 g/dLLow13.0 - 17.0 g/dLBon SecPrem[facility] Immature granulocytes (Bld) [#/Vol]0.13 10*3/uLBon SecPremier Health Miami Valley Hospital SouthImmature granulocytes/100 WBC (Bld)1 %Iarn4UyeWinchester Medical CenterInterpretation and review of laboratory resultsAbnormalBon [facility] HospitalLymphocytes/100 WBC (Bld)29 %24 - 43 %Winchester Medical CenterLymphocytes/100 WBC (Bld)3.59 %[facility] CenterH (RBC) [Entitic mass]29.3 pg25.2 - 33.5 pgRiverside Behavioral Health CenterHC (RBC) [Mass/Vol]32.8 g/dL28.4 - 34.8 g/dLBon [facility] HospitalV (RBC) [Entitic vol]89.4 fL82.6 - 102.9 fLWinchester Medical Center Monocytes/100 WBC (Bld)11 %3 - 12 %[facility] Medical CenterMonocytes/100 WBC (Bld)1.37 %HighWinchester Medical CenterNeutrophils/100 WBC (Bld)57 %36 - 65 %[facility] Medical CenterNucleated RBC/100 WBC (Bld) [Ratio]0 %0.0 per 100 WBCWinchester Medical CenterPlatelet mean volume (Bld) [Entitic vol]9 fL8.1 - 13.5 fLWinchester Medical CenterPlatelets (Bld) [#/Vol]433 10*3/uLBon [facility] RBC (Bld) [#/Vol]4.16 10*6/uLLow4.21 - 5.77 m/uLWinchester Medical Center Segmented neutrophils/100 WBC (Bld)7.2 %Winchester Medical CenterWBC other (Bld) [#/Vol]12.5HighBon [facility] HospitalBon [facility] HospitalCBC with Diffon [id number]. Basophil0.13 k/uLNormal0.00-0.20[facility] Pleasant HospitalComment on above:Performed By: #### IRVING MONTE, CP #### [address] [place] [address] Chef German: Chen Mario.Imm.Granulocyte0.13 k/uLNormal0.00-0.30[facility] HospitalComment on above:Performed By: #### IRVING MONTE, CP #### [address] [place] [address] Chef German: Chen Mario.Neutrophil (Seg)7.20 k/uLNormal1.50-8.10White HospitalComment on above:Performed By: #### IRVING MONTE, CP #### [address] [place] [address] Chef German: Ziggy Hilario MDBasophils/100 WBC (Bld)1 %Normal0-2MAdena Regional Medical Center HospitalComment on above:Performed By: #### IRVING MONTE, CP #### [address] [place] [address] Chef German: Ziggy Hilario MDEosinophils (Bld) [#/Vol]0.09 10*3/uLNormal 0.00-0.44White HospitalComment on above:Performed By: #### IRVING MONTE, CP #### [address] [place], [place] [address] Chef German: BLAIR Marioosinophils/100 WBC (Bld)1 %Normal1-4White HospitalComment on above:Performed By: #### IRVING MONTE, CP #### [address] [place] [address] Chef German: Ziggy Hilario MDErythrocyte distribution width (RBC) [Ratio]13.5 % Rndhli19.8-14.4White HospitalComment on above:Performed By: #### IRVING MONTE, CP #### [address] [place], [place] [address] Chef German: Ziggy Hilario MDHematocrit (Bld) [Volume fraction]37.2 %Low 40.7-50.3MWilson Memorial HospitalComment on above:Performed By: #### IRVING MONTE, CP #### [address] [place], [facility] Chef German: Ziggy Hilario MDHemoglobin (Bld) [Mass/Vol]12.2 g/dLLow13.0-17.0 [facility] on above:Performed By: #### IRVING MONTE, CP #### [address] [place] [id number] Chef German: Janell Mariomature granulocytes/100 WBC (Bld)1 %Syiu8RuqcoWhite HospitalComment on above:Performed By: #### IRVING MONTE, CP #### [address] [place], [place] [address] Chef German: Ziggy Hilario MDLymphocytes (Bld) [#/Vol]3.59 10*3/uLNormal 1.10-3.70White HospitalComascension providence hospital on above:Performed By: #### IRVING MONTE, CP #### [address] [place], [facility] Chef German: Jacki Mariomphocytes/100 WBC (Bld)29 %Yfonyc43-01WzxupWhite HospitalComascension providence hospital on above:Performed By: #### IRVING MONTE, CP #### [address] [place], [place] [id number] Chef German: NANCY MarioCH (RBC) [Entitic mass]29.3 ahFsjhay30.2-33.5 [facility] HospitalComment on above:Performed By: #### IRVING MONTE, CP #### [address] [place] [address] Chef German: NANCY MarioCHC (RBC) [Mass/Vol]32.8 g/kOXqqavg13.4-34.8[facility] HospitalComment on above:Performed By: #### IRVING MONTE, CP #### [address] [place] [address] Chef German: NANCY MarioCV (RBC) [Entitic vol]89.4 wFTkqrvk19.6-102.9 White HospitalComment on above:Performed By: #### IRVING MONTE, CP #### [address] [place], [facility] Chef German: NANCY Marioonocytes (Bld) [#/Vol]1.37 10*3/uLHigh0.10-1.20 White HospitalComment on above:Performed By: #### IRVING MONTE, CP #### [address] [place] [address] Chef German: NANCY Marioonocytes/100 WBC (Bld)11 %Normal3-12[facility] HospitalComment on above:Performed By: #### IRVING MONTE, CP #### [address] [place] [address] Chef German: Ziggy Hilario MDNeutrophil (Seg)57 %Bkdxlf43-26Behuz Tiffin HospitalComment on above:Performed By: #### IRVING MONTE, CP #### [address] [place] [address] Chef German: Ziggy Hilario MDNRBC Automated0.0 per 100 WBCNormal0.0[facility] HospitalComment on above:Performed By: #### IRVING MONTE, CP #### [address] [place], [place] [address]83 Chef German: Tatiana Mario mean volume (Bld) [Entitic vol]9.0 fL Normal8.1-13.5White HospitalComment on above:Performed By: #### IRVING MONTE, CP #### [address] [place] [address] Chef German: Gina Mario (Bld) [#/Vol]433 10*3/mCLaervo516-129 White HospitalComment on above:Performed By: #### IRVING MONTE, CP #### [address] [place], [place] [id number] Chef German: SAAD MarioBC (Bld) [#/Vol]4.16 10*6/uLLow4.21-5.77White HospitalComment on above:Performed By: #### IRVING MONTE, CP #### [address] [place], [place] [address] Chef German: ANN Mario (Bld) [#/Vol]12.5 10*3/uLHigh3.5-11.3Mercy Natchaug HospitalComment on above:Performed By: #### IRVING MONTE, CP #### [address] [place], [place] [id number] Chef German: BRITNI Mariorupert [id number] [Mass/Vol]4.2 g/dL3.5 - 5.2 g/dLBon [facility] HospitalAlbumin/Globulin [Mass ratio]1.7 {ratio}1.0 - 2.5Bon [facility] HospitalALP [Catalytic activity/Vol]145 U/LHigh40 - 129 U/L Bon [facility] HospitalALT [Catalytic activity/Vol]91 U/LHigh10 - 50 U/LBon [facility] HospitalOur [facility] of the [facility] [employer] LinesAnion gap [Moles/Vol]12 mmol/L9 - 16 mmol/LBon [facility] HealthAST [Catalytic activity/Vol]90 U/LHigh10 - 50 U/LBon [facility] Bilirubin [Mass/Vol]mg/dL0.00 - 1.20 mg/dLBon SecPremier Health Miami Valley Hospital SouthCalcium [Mass/Vol]9.1 mg/dL8.6 - 10.4 mg/dLBon SecLake Chelan Community HospitalEvocalize [facility] HospitalChloride [Moles/Vol] 101 mmol/L98 - 107 mmol/LBon SecPremier Health Miami Valley Hospital SouthCO2 [Moles/Vol]21 mmol/L20 - 31 mmol/LBon [facility] Community HospitalCreatinine [Mass/Vol]1.4 mg/dLHigh0.70 - 1.20 mg/dLBon [facility] Community HospitalPodimetricsEst, [place] Filt Rate61- PINFBon [facility] Comment on above: These results are [...] therapy that affects renal tubular secretion. Glucose [Mass/Vol]178 mg/cADsnf89 - 99 mg/dLBon [facility] [employer] SolutionsPotassium [Moles/Vol]4.6 mmol/L3.7 - 5.3 mmol/LBon [facility] Populr [facility]cy[facility] HospitalComment on above: Specimen hemolysis has exceeded the interference as defined by Gwyn. Value may be falsely increased. Suggest recollection if clinically indicated. Protein [Mass/Vol]6.6 g/dL6.6 - 8.7 g/dLBon [facility] Penguin ComputingStafford HospitalSodium [Moles/Vol]134 mmol/FZmo280 - 145 mmol/LBon [facility] [employer] LinesUrea nitrogen [Mass/Vol]22 mg/dLHigh6 - 20 mg/dLBon [facility] [employer] LinesUrea nitrogen/Creatinine [Mass ratio]16 mg/mg9 - 20Bon [facility] Populr [facility] HospitalCT ABDOMEN PELVIS WO CONTRASTon 05-67-3331KZ ABDOMEN PELVIS WO CONTRASTEXAMINATION: CT OF THE ABDOMEN AND PELVIS WITHOUT [...] Signed by: Sid Brandt MD 05/25/25 Final resultNormalWhite HospitalCT Abdomen and Pelvis WO contraston [id number]: CT OF THE ABDOMEN AND PELVIS WITHOUT [...] which is unchanged with no retropulsed fragment. [facility] Sid Mahmood MD - 05/25/2025 EXAMINATION: CT OF THE [...] early infiltrates posteriorly which is more prominent. [facility] CenterRadiology Study observation (narrative)[facility] Abdomen and Pelvis WO contrastOrdered By: Sid Brandt on 05-25-2025 [facility] Work Phone: Comp Metabolic Profon [id number] [Mass/Vol]4.2 g/dLNormal3.5-5.2Mer[facility] Point Pleasant HospitalComment on above:Performed By: #### IRVING MONTE, CP #### [facility] [address] [place] [address] [place] [address] Chef German: Ziggy Hilario, MDAlbumin/Glob Ratio1.9Oqpshz5.0-2.5White HospitalComment on above:Performed By: #### IRVING MONTE, CP #### [facility] [address] [place] [address] [place] [address] Chef German: Tsering Mariokaline Qolb004 U/QSjxq71-217LxpicWhite HospitalComment on above:Performed By: #### IRVING MONTE, CP #### [address] [place] [address] Chef German: Ziggy Hilario MDALT [Catalytic activity/Vol]91 U/FDvjf11-88BlsuaWhite HospitalComment on above:Performed By: #### IRVING MONTE, CP #### [address] [place] [address] Chef German: Ziggy Hilario MDAnion gap [Moles/Vol]12 mmol/LNormal9-16[facility] Dayton HospitalComment on above:Performed By: #### IRVING MONTE, CP #### [address] [place] [address] Chef German: Ziggy Hilario MDAST [Catalytic activity/Vol]90 U/XThva18-56GbsyxWhite HospitalComment on above:Performed By: #### IVRING MONTE, CP #### [address] [place] [address] Chef German: Ziggy Hilario MDBilirubin [Mass/Vol]mg/dLNormal0.00-1.20White HospitalComment on above:Performed By: #### IRVING MONTE, CP #### [address] [place] [address] Chef German: Ziggy Hilario MDBUN/CRE Boaht91Idkvwk7-53Pdzdd [facility] Comment on above:Performed By: #### IRVING MONTE, CP #### [address] [place] [address] Chef German: BRITNI Marioalcium [Mass/Vol]9.1 mg/dLNormal8.6-10.4White HospitalComment on above:Performed By: #### IRVING MONTE, CP #### [address] [place] [address] Chef German: BRITNI Mariohloride [Moles/Vol]101 mmol/ABczcce07-535BamhmWhite HospitalComment on above:Performed By: #### IRVING MONTE, CP #### [address] [place], [place] [address]83 Chef German: Ziggy Hilario MDCO2 [Moles/Vol]21 mmol/KWgabnz06-98RtxbgWhite HospitalComment on above:Performed By: #### IRVING MONTE, CP #### [address] [place], [place] [address]83 Chef German: BRITNI Marioreatinine [Mass/Vol]1.4 mg/dLHigh0.70-1.20White HospitalComment on above:Performed By: #### IRVING MONTE, CP #### [address] [place] [address] Chef German: Ziggy Hilario MDGFR/1.73 sq M.predicted among non-blacks MDRD (S/P/Bld) [Vol rate/Area]61 mL/min/{1.73_m2}Normal>60[facility] Comment on above:Result Comment: These results are not intended for [...] or following therapy that affects renal tubular secretion.Performed By: #### IRVING MONTE, CP #### [address] [place] [address] Chef German: Ziggy Hilario MDGlucose [Mass/Vol]178 mg/rBXxbs71-97HfbdyWilson Memorial HospitalComment on above:Performed By: #### IRVING MONTE, CP #### [address] [place] [id number] Chef German: SUJATA Mariootassium [Moles/Vol]4.6 mmol/LNormal3.7-5.3Mer[facility] Point Pleasant HospitalComment on above:Result Comment: Specimen hemolysis has exceeded the interference as defined by Gwyn. Value may be falsely increased. Suggest recollection if clinically indicated.Performed By: #### IRVING MONTE, CP #### [address] [place], [place] [id number] Chef German: SUJATA Mariorotein [Mass/Vol]6.6 g/dLNormal6.6-8.7White HospitalComment on above:Performed By: #### IRVING MONTE, CP #### [address] [place], [place] [id number] Chef German: PIEDAD Marioodium [Moles/Vol]134 mmol/HObh473-893WqobzNatchaug HospitalComment on above:Performed By: #### IRVING MONTE, CP #### [address] [place], [place] [address]83 Chef German: Ziggy Hilario MDUrea nitrogen [Mass/Vol]22 mg/dLHigh6-20White HospitalComment on above:Performed By: #### IRVING MONTE, CP #### [address] [place], [place] [address]83 Chef German: Ziggy Hilario MDLactic Acidon 19-19-7650Djsoyte (BldV) [Moles/Vol] 1.2 mmol/L0.5 - 2.2 mmol/LBon [facility] HospitalBon [facility] Lactate [Moles/Vol]1.2 mmol/LNormal0.5-2.2Mer[facility] Point Pleasant HospitalComment on above: Performed By: #### IRVING MONTE, CP #### [address] [place], [place] [address]83 Chef German: Ziggy Hilario MDLipaseon 63-60-8742Jlefbf [Catalytic activity/Vol] 7 U/LLow13 - 60 U/LBon [facility]ours [facility] HealthLipase [Catalytic activity/Vol]7 U/L Tfx15-95HefjuWhite HospitalComment on above:Performed By: #### IRVING MONTE, CP #### [facility] [address] [place] [address] Chef German: Abbie Mario Panel Informationon 35-12-1610Jtgawodzsarnqp and review of laboratory resultsAbnormalBon Secours Mercy HealthBon Secours [facility] Centery HealthUrinalysison 48-42-8755Omuynfsoy Ql (U)NegativeNEGATIVEBon Secours Mercy HealthClarity (U)ClearClearBon Secours [facility]ht[facility] Medical Centery HealthColor (U)YellowYellow Bon SecOur [facility] HealthGlucose Test strip (U) [Mass/Vol]NegativeNEGATIVE mg/dL Bon SecOur [facility] HealthHemoglobin Auto test strip Ql (U)NegativeNEGATIVEBon Secours [facility]ht[facility] Centery HealthKetones (U) [Mass/Vol]NegativeNEGATIVE mg/dLBon SecLake Chelan Community Hospitaly HealthLeukocyte esterase Test strip Ql (U)NegativeNEGATIVEBon Secours Mercy HealthNitrite Ql (U)NegativeNEGATIVEBon Secours Mercy HealthpH (U)6.5 [pH] 5.0 - 9.0Bon [facility] Centery HealthProtein (U) [Mass/Vol]NegativeNEGATIVE mg/dLBon SecLake Chelan Community Hospitaly HealthSpecific gravity (U) [Rel density]1.011.010 - 1.020Bon SecOur [facility] HealthUrobilinogen Qn (U)Normal0.0 - 1.0 EU/dLBon Secours [facility]ht[facility] Centery HealthBon [facility] Centery HealthUrinalysis, Routineon 11-63-7467Waaeigurf, SemiQt,UrNegativeNormalNEGWhite HospitalComment on above:Performed By: #### IRVING MONTE, CP #### [facility] [address] [place] [address] Chef German: Catalina Mario, UrineNegativeNormalNEGWhite Hospital Comment on above:Performed By: #### IRVING MONTE, CP #### [facility] [address] [place] [address] [place] [address] Chef German: BRITNI Mariolarity (U)ClearNormalCLEARWhite Hospital Comment on above:Performed By: #### IRVING MONTE, CP #### [facility] [address] [place] [address] [place] [place], [place] 9423983 Chef German: BRITNI Marioolor (U)YellowNoalYGeorgetown Behavioral Hospital Comment on above:Performed By: #### IRVING MONTE, CP #### [address] [place] [address] Chef German: Ziggy Hilario MDGlucose Ql (U)NegativeNormalNEGWhite HospitalComment on above:Performed By: #### IRVING MONTE, CP #### [facility] [address] [place] [address] [place] [address] Chef German: Ziggy Hilario MDKetones Ql (U)NegativeNormalNEGWhite HospitalComment on above:Performed By: #### IRVING MONTE, CP #### [address] [place] [address] Chef German: Ziggy Hilario MDLeukocyte esterase Test strip Ql (U)NegativeNormal NEGWhite HospitalComment on above:Performed By: #### IRVING MONTE, CP #### [facility] [address] [place] [address] [place] [address] Chef German: Ziggy Hilario MDNitrite,UrNegativeMercy Hospital Comment on above:Performed By: #### IRVING MONTE, CP #### [address] [place] [address] Chef German: SUJATA Mario,Ur6.4Hcpngc7.0-9.0White HospitalComment on above:Performed By: #### IRIVNG MONTE, CP #### [facility] [address] [place] [address] Chef German: SUJATA Mariorotein Ql (U)NegativeNormalNEGWhite HospitalComment on above:Performed By: #### IRVING MONTE, CP #### [facility] [address] [place], [place] [address]83 Chef German: PIEDAD Mariopec. Allison,Ur1.465Xbdeao3.010-1.020White HospitalComment on above:Performed By: #### IRVING MONTE, CP #### [facility] [address] [place], [place] [address]83 Chef German: Ziggy Hilario MDUrobilinogen,UrNormalNormal0.0-1.0White HospitalComment on above:Performed By: #### IRVING MONTE, CP #### [address] [place], [place] [phone] Chef German: TREASURE Mario Chest 2 Viewson 43-52-4878Ygrxtcabl Study observation (narrative)[facility]tagracia [facility],Urineon 20-66-6636Wkos,Urine Specimen Description .CLEAN CATCH URINE Special Requests Site: Urine Culture NO GROWTH Report Status FINAL 05/14/2025NormalWhite HospitalComment on above: Performed By: #### URC #### [facility] [address], [place] [address] Chef German: Reno Duron MD [facility] [address] [place] [address] Chef German: Keo Mario 35-92-3925LRPJBhnakcZcdjufnqkLutheran HospitalCNPNon 79-94-6820DHXKSqhlwmAmsykhvpxLutheran HospitalCNPNon 04-03-2025 CNPNNLutheran HospitalCNPNon 16-73-6532IWYXNzfxjhAopssykrvTogus VA Medical Center 88-50-3783IOJENklrbmMuevqcsdoMansfield Hospitalon 03-04-2025 CNPCleveland Clinic Akron GeneralGastroenterology Office/Clinic Noteon 37-01-1546Ljivmvxldbahoedj Office/Clinic NoteHistory of Present Illness This is a 54-year-old man who presented to the GI clinic for follow-up Patient has pertinent history of recurrent pancreatitis-underwent EUS in 05/2019 which showed gallbladder sludge, small stone-cholecystectomy was performed on 07/11/2019. Patient reports being followed by GI both in [facility] [Dr. Alexander] patient states thathe has had recurrent episodes of pancreatitis over the last 4 years-[facility]. Patient states that the pancreatitis was [...] 04/2024 which showed long segment Dong's esophagus [biopsiesshowed no evidence of dysplasia]; a 2 cm hiatal hernia; linear antral erythema; evidence of cholecystectomy; fatty liver; atrophic pancreas with PD measuring 7 mm in HOP, 15 x 10 mm cystic lesion in the TOP suggestive of possible underlying IPMN. Subsequent CT A/P with pancreatic protocol done on 05/23/2024 showed diffuse dilation of main PD witha maximal dilation in the tail of up [...] reports that he was subsequently referred to [facility] where he underwent a pancreatectomy for the above findings. Patient also reports that he is now type I diabetic and has been currently managed as the same Patient also has history of fatty liver but with normal LFTs. Last dedicated abdominal imaging from06/2020 showed evidence of small hiatal hernia, mild distal esophagitis; s/p cholecystectomy status; fatty liver with no focal liver lesions USG RUQ from 02/2019 showed evidence of gallbladder sludge; fatty liver Colonoscopy from 08/2020 showed suboptimal bowel preparation; scattered left- sided diverticulosis; internal hemorrhoids. 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 Pancreatic duct dilated Patient has pertinent history of recurrent pancreatitis Patient states that the pancreatitis was attributed to his underlying hypertriglyceridemia. Patienthas been on fenofibrate, atorvastatin for his dyslipidemia. 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 IPMN]. Patient had a diagnostic EGD-EUS in 04/2024 which showed long segment Dong's esophagus [biopsiesshowed no evidence of dysplasia]; a 2 cm hiatal hernia; linear antral erythema; evidence of cholecystectomy; fatty liver; atrophic pancreas with PD measuring 7 mm in HOP, 15 x 10 mm cystic lesion in the TOP suggestive of possible underlying IPMN. Subsequent CT A/P with pancreatic protocol done on 05/23/2024 showed diffuse dilation of main PD witha maximal dilation in the tail of up to 1.3 cm with DDC including main duct IPMN, occult obstructing neoplasm or extra vacuo dilation related to pancreatic atrophy. EUS FNA done in 06/2024 d and 8 point millimeter in the head in the body of the pancreas respectively; cystic dilation of the pancreatic duct a (more content not included)...[facility]XR [facility] (MIN 3 VIEWS)on 63-92-1156DO HAND LEFT (MIN 3 VIEWS)EXAMINATION: THREE XRAY VIEWS OF THE LEFT HAND [...] Signed by: Diana Curtis MD 02/24/25 Final resultNormalWhite HospitalXR Hand - left 3 Viewson [id number] acute osseous abnormality. [facility] CONSOLIDATEDEXAMINATION: THREE XRAY VIEWS OF THE LEFT HAND 02/24/2025 11:50 am COMPARISON: 11/30/2024 HISTORY: ORDERING SYSTEM PROVIDED HISTORY: injury to 3rd and 4fth digits TECHNOLOGIST PROVIDED HISTORY: injury to 3rd and 4fth digits FINDINGS: No acute fracture or dislocation. Joint spaces and alignment are maintained. Soft tissues are unremarkable. [facility] Diana Wright MD - 02/24/2025 EXAMINATION: THREE XRAY VIEWS OF THE LEFT HAND 02/24/2025 11:50 am COMPARISON: 11/30/2024 HISTORY: ORDERING SYSTEM PROVIDED HISTORY: injury to 3rd and 4fth digits TECHNOLOGIST PROVIDED HISTORY: injury to 3rd and 4fth digits FINDINGS: No acute fracture or dislocation. Joint spaces and alignment are maintained. Soft tissues are unremarkable. IMPRESSION: No acute osseous abnormality. [facility] CenterRadiology Study observation (narrative)[facility] Hand - left 3 ViewsOrdered By: Diana Curtis on 33-07-1492Klt [employer] Work Phone: CT ABDOMEN PELVIS W IV CONTRASTon 11-24-1329CI ABDOMEN PELVIS W IV CONTRASTEXAMINATION: CT OF THE ABDOMEN AND PELVIS WITH [...] by: Octavio Kwon IV, MD 02/17/25 Final resultNormalMerThe Hospital of Central [facility] Abdomen and Pelvis W contrast Thee . No acute finding in the abdomen or pelvis to correlate to the patient's clinical symptoms. 2. Hepatic steatosis. 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 [facility] RIS CONSOLIDATEDEXAMINATION: CT OF THE ABDOMEN AND PELVIS WITH [...] at L3 and also seen at T9. [facility] Octavio Sinclair IV, MD - 02/17/2025 EXAMINATION: CT OF [...] Prior surgical changes of Whipple and splenectomy. [facility] HealthCT Abdomen and Pelvis W contrast IVOrdered By: Octavio Kwon on [id number] [facility] Work Phone: Basic Metabolic Panelon 35-10-5109Opulc gap [Moles/Vol]8 mmol/LLow9 - 16 mmol/LBon [facility] HospitalCalcium [Mass/Vol]9.9 mg/dL8.6 - 10.4 mg/dLBon [facility] HospitalChloride [Moles/Vol]100 mmol/L98 - 107 mmol/LBon [facility] HospitalCO2 [Moles/Vol]31 mmol/L20 - 31 mmol/LBon [facility] HospitalCreatinine [Mass/Vol]1.0 mg/dL0.70 - 1.20 mg/dLBon [facility] HospitalEst, [place] Filt Rate- PINFBon [facility] HospitalComment on above: These results are not intended [...] therapy that affects renal tubular secretion. Glucose [Mass/Vol]117 mg/mEVxia01 - 99 mg/dLBon [facility] Interpretation and review of laboratory resultsAbnormalBon [facility] Potassium [Moles/Vol]5.1 mmol/L3.7 - 5.3 mmol/LBon [facility] HospitalSodium [Moles/Vol]139 mmol/L136 - 145 mmol/LBon [facility] HospitalUrea nitrogen [Mass/Vol]14 mg/dL6 - 20 mg/dLBon [facility] HospitalUrea nitrogen/Creatinine [Mass ratio]14 mg/mg9 - 20Bon [facility] HospitalBon [facility] HospitalBasic Metabolic Profon 64-67-0646Imypx gap [Moles/Vol]8 mmol/LLow9-16NolaNatchaug HospitalComment on above:Performed By: #### CMPX, CDP #### [facility] [address] [place], [place] [address]83 Chef German: Ziggy Hilario MDBUN/CRE Jfphj12Fqmlqy4-90Hzmer [facility] Comment on above:Performed By: #### CMPX, CDP #### [address] [place], [place] [address]83 Chef German: BRITNI Marioalcium [Mass/Vol]9.9 mg/dLNormal8.6-10.4White HospitalComment on above:Performed By: #### CMPX, CDP #### [address] [place], [place] [address]83 Chef German: BRITNI Mariohloride [Moles/Vol]100 mmol/LPdxhpv43-588AsmfaWhite HospitalComment on above:Performed By: #### CMPX, CDP #### [address] [place] [address] Chef German: BRITNI MarioO2 [Moles/Vol]31 mmol/BFrmhuw86-98LvnumWhite HospitalComment on above:Performed By: #### CMPX, CDP #### [address] [place], [place] [address]83 Chef German: BRITNI Marioreatinine [Mass/Vol]1.0 mg/dLNormal0.70-1.20White HospitalComment on above:Performed By: #### CMPX, CDP #### [address] [place] [address] Chef German: Ziggy Hilario MDGFR/1.73 sq M.predicted among non-blacks MDRD (S/P/Bld) [Vol rate/Area]mL/min/{1.73_m2}Normal>60White HospitalComment on above:Result Comment: These results are not intended for [...] or following therapy that affects renal tubular secretion.Performed By: #### CMPX, CDP #### [address] [place] [address] Chef German: Ziggy Hilario MDGlucose [Mass/Vol]117 mg/xSFlsn61-82Egkse Point Pleasant HospitalComment on above:Performed By: #### CMPX, CDP #### [address] [place], [place] 67[address]483 Chef German: SUJATA Mariootassium [Moles/Vol]5.1 mmol/LNormal3.7-5.3Muniversity hospitals lake west medical centery Point Pleasant HospitalComment on above:Performed By: #### CMPX, CDP #### [address] [place], [place] [address]883 Chef German: PIEDAD aMrioodium [Moles/Vol]139 mmol/GWemnja480-461Anxdx [facility]in HospitalComment on above:Performed By: #### CMPX, CDP #### [address] [place], [place] [address]250683 Chef German: Ziggy Hilario MDUrea nitrogen [Mass/Vol]14 mg/dLNormal6-20[facility] HospitalComment on above:Performed By: #### CMPX, CDP #### [address] [place] [address] Chef German: Ziggy Hilario [facility] with Auto Differentialon 36-14-8830Kjopalajv (Bld) [#/Vol]0.09 10*3/uLBon Secours Prom[facility] Fostoria Community HospitalBasophils/100 WBC (Bld)1 %0 - 2 %[facility] HospitalEosinophils (Bld) [#/Vol]0.06 10*3/uLBon Secours [facility] Community HospitalEosinophils/100 WBC (Bld)1 %1 - 4 %[facility] Medical CenterErythrocyte distribution width (RBC) [Ratio]15.3 %High11.8 - 14.4 %[facility] Hematocrit (Bld) [Volume fraction]39.9 %Low40.7 - 50.3 %[facility] Hemoglobin (Bld) [Mass/Vol]12.5 g/dLLow13.0 - 17.0 g/dLBon [facility] Immature granulocytes (Bld) [#/Vol]0.04 10*3/uLBon Secours [facility] Community HospitalImmature granulocytes/100 WBC (Bld)0 %0Bon [facility] HospitalInterpretation and review of laboratory resultsAbnormalBon SecOur [facility] HealthLymphocytes/100 WBC (Bld)25 %24 - 43 %[facility] Medical CenterLymphocytes/100 WBC (Bld)2.97 %[facility] Medical CenterMCH (RBC) [Entitic mass]28 pg25.2 - 33.5 pgWinchester Medical Center MCHC (RBC) [Mass/Vol]31.3 g/dL28.4 - 34.8 g/dLBon [facility] HospitalMCV (RBC) [Entitic vol]89.3 fL82.6 - 102.9 fLCarilion Roanoke Community Hospital HealthMonocytes/100 WBC (Bld)10 %3 - 12 %[facility] CenterMonocytes/100 WBC (Bld)1.21 %HighWinchester Medical CenterNeutrophils/100 WBC (Bld)63 %36 - 65 %[facility] Medical CenterNucleated RBC/100 WBC (Bld) [Ratio]0 %0.0 per 100 WBCWinchester Medical CenterPlatelet mean volume (Bld) [Entitic vol]9.2 fL8.1 - 13.5 fLDiamond Children'S Medical Center SecOur Lady of the Lake [facility] Center HealthPlatelets (Bld) [#/Vol]437 10*3/uLBon SecPremier Health Miami Valley Hospital SouthRBC (Bld) [#/Vol]4.47 10*6/uL4.21 - 5.77 m/uLBon SecPremier Health Miami Valley Hospital SouthSegmented neutrophils/100 WBC (Bld)7.3 %[facility] Medical CenterWBC other (Bld) [#/Vol] 11.7HighBon [facility] HospitalBon [facility] with Diffon 04-75-9332Mtp. Basophil0.09 k/uLNormal0.00-0.20MerOhioHealth Shelby Hospital HospitalComment on above:Performed By: #### CMPX, CDP #### [address] [place], [place] [address] Chef German: Chen Mario.Imm.Granulocyte0.04 k/uLNormal0.00-0.30MerOhioHealth Shelby Hospital HospitalComment on above:Performed By: #### CMPX, CDP #### [address] [place], [place] [address] Chef German: Chen Mario.Neutrophil (Seg)7.30 k/uLNormal1.50-8.10MerOhioHealth Shelby Hospital HospitalComment on above:Performed By: #### CMPX, CDP #### [address] [place], [place] [address] Chef German: Ziggy Hilario MDBasophils/100 WBC (Bld)1 %Normal0-2MercFisher-Titus Medical Center HospitalComment on above:Performed By: #### CMPX, CDP #### [address] [place], [place] [address] Chef German: Ziggy Hilario MDEosinophils (Bld) [#/Vol]0.06 10*3/uLNormal 0.00-0.44MerOhioHealth Shelby Hospital HospitalComment on above:Performed By: #### CMPX, CDP #### [address] [place], [place] [address] Chef German: BLAIR Marioosinophils/100 WBC (Bld)1 %Normal1-4MerOhioHealth Shelby Hospital HospitalComment on above:Performed By: #### CMPX, CDP #### [address] [place], [place] [address]228[address] Chef German: Ziggy Hilario MDErythrocyte distribution width (RBC) [Ratio]15.3 % High11.8-14.4White HospitalComment on above:Performed By: #### CMPX, CDP #### [address] [place], [place] [address] Chef German: Ziggy Hilario MDHematocrit (Bld) [Volume fraction]39.9 %Low 40.7-50.3MAdena Regional Medical Center HospitalComment on above:Performed By: #### CMPX, CDP #### [address] [place] [phone] Chef German: Ziggy Hilario MDHemoglobin (Bld) [Mass/Vol]12.5 g/dLLow13.0-17.0 [facility] HospitalComment on above:Performed By: #### CMPX, CDP #### [address] [place], [facility] Chef German: Ziggy Hilario MDImmature granulocytes/100 WBC (Bld)0 %Tnvtjj3XkqboWhite HospitalComment on above:Performed By: #### CMPX, CDP #### [address] [place] [id number] Chef German: Ziggy Hilario MDLymphocytes (Bld) [#/Vol]2.97 10*3/uLNormal 1.10-3.70[facility] HospitalComment on above:Performed By: #### CMPX, CDP #### [address] [place], [place] [address] Chef German: Ziggy Hilario MDLymphocytes/100 WBC (Bld)25 %Egbaxk90-44Ppgce [facility]iffin HospitalComment on above:Performed By: #### CMPX, CDP #### [address] [place], [place] [address]83 Chef German: NANCY MarioCH (RBC) [Entitic mass]28.0 gvLlziug58.2-33.5 [facility] HospitalComment on above:Performed By: #### CMPX, CDP #### [address] [place], [place] 64[address]283 Chef German: NANCY MarioCHC (RBC) [Mass/Vol]31.3 g/jLCbhhpe93.4-34.8[facility] HospitalComment on above:Performed By: #### CMPX, CDP #### [address] [place], [place] 164[address]683 Chef German: NANCY MarioCV (RBC) [Entitic vol]89.3 uJKgavwa03.6-102.9 [facility] HospitalComment on above:Performed By: #### CMPX, CDP #### [address] [place], [place] [address]83 Chef German: NANCY Marioonocytes (Bld) [#/Vol]1.21 10*3/uLHigh0.10-1.20 [facility] HospitalComment on above:Performed By: #### CMPX, CDP #### [address] [place], [place] [id number] Chef German: NANCY Marioonocytes/100 WBC (Bld)10 %Normal3-12[facility] HospitalComment on above:Performed By: #### CMPX, CDP #### [address] [address] [place], [place] [address]83 Chef German: Ziggy Hilario MDNeutrophil (Seg)63 %Aolzxm18-53Chxgi Tiffin HospitalComment on above:Performed By: #### CMPX, CDP #### [address] [place], [place] 0[address]183 Chef German: BAR Mario Automated0.0 per 100 WBCNormal0.0White HospitalComment on above:Performed By: #### CMPX, CDP #### [address] [place], [place] 727[address]83 Chef German: Tatiana Mario mean volume (Bld) [Entitic vol]9.2 fL Normal8.1-13.5White HospitalComment on above:Performed By: #### CMPX, CDP #### [address] [place], [place] 415[address]83 Chef German: Gina Mario (Bld) [#/Vol]437 10*3/yIKobvcs810-683 [facility] Dayton HospitalComment on above:Performed By: #### CMPX, CDP #### [address] [place], [place] 5359183 Chef German: TIERRA Mario (Bld) [#/Vol]4.47 10*6/uLNormal4.21-5.77White HospitalComment on above:Performed By: #### CMPX, CDP #### [address] [place] [address] Chef German: ANN Mario (Bld) [#/Vol]11.7 10*3/uLHigh3.5-11.3MWilson Memorial HospitalComment on above:Performed By: #### CMPX, CDP #### [address] [place], [place] 865[address]83 Chef German: Ziggy Hilario MDCT Abdomen and Pelvis W contrast Thee 02-16-2025 Radiology Study observation (narrative)Altagracia Edmonds [facility] POSTPROC EVALon [id number] POSTPROC EVALNormalCRegency Hospital Cleveland West PRE-OPon [id number] PRE-OPNormalLima Memorial HospitalEG Study observation Narrativeon [id number] ClinicRadiology Study observation (narrative) [facility] HospitalNURSING PROGon [id number] PROGNormalLima Memorial HospitalNGUNNISON VALLEY [facility] PROGNLutheran HospitalPathology biopsy report Jacinto (Tiss)on [id number] 1:NormalDayton Children's Hospital on above: Order Comment: Specimen Type: TISSUE SPECIMENOrdering Facility: [facility] Address: [address], [place] [address]Result Comment: H. pylori immunostain performed on the stomach biopsy (part a) to evaluate th chronic gastris is negative for organisms.Laboratory Developed Test (LDT) Disclaimer:Performance characteristics of immunohistochemical, immunofluorescent and chromogenic in-situ hybridization tests have been determined by the performing laboratory within [facility]???s [facility] Pathology a pr Laboratory Medicine Department ([facility], [facility], [facility], [facility], [facility], [facility], or [facility])in a manner consistent with CLIA requirements. One or more of these tests have not been cleared or approved by the FDA. RT-PLM is regulated under CLIA as qualified to perform high-complexity testing.These tests are used for clinical purposes. They should not be regarded as investigational or for research. Positive and negative controls stain appropriately.Addendum electronically signed by Octavio Chaidez MD on 01/27/2025 at 1442 EDTPerformed By: #### 81045-9 ####[facility] LABORATORYCLIA [id number] [address] LABCLIA [id number] [address]AP DISCLAIMERNormalCRegency Hospital [place] on above:Order Comment: Specimen Type: TISSUE SPECIMENOrdering Facility: [facility] Address: [address] [id number] Comment: Laboratory Developed Test (LDT) Disclaimer:Performance characteristics of immunohistochemical, immunofluorescent, and chromogenic in-situ hybridization tests have been determined by the performing laboratory within [facility]'s [facility] Pathology and Laboratory Medicine Department ([facility], [facility], [facility], [facility], [facility], [facility], or [facility]) in a manner consistent with CLIA requirements. One or more of these tests may not have been cleared or approved by the FDA. RT-PLM is regulated under CLIA as qualified to perform high-complexity testing. These tests are used for clinical purposes. These should not be regarded as investigational or for research. Positive and negative controls stain appropriately.Performed By: #### 90033-1 ####[facility] LABORATORYCLIA [id number] [address] LABCLIA [id number] [address] STATES [facility]ER CENTERCASE REPORTNormal Lima Memorial HospitalComment on above:Order Comment: Specimen Type: TISSUE SPECIMENOrdering Facility: [facility] Address: [address] [place], [place] [address]Result Comment: Surgical Pathology Report Case: [id number] Provider: Dariusz Pratt MD Collected: 01/23/2025 03:29 PMOrdering Location: Gastroenterology Received: 01/23/2025 05:59 PMPathologist: Octavio Chaidez MDSpecimens: A) - Stomach, Biopsy B) - Esophagus, Biopsy, biopsy at 34 cm C) - Esophagus, Biopsy, biopsy at 32cmPerformed By: #### 11632-4 ####[facility] LABORATORYCLIA [id number] [address] LABCLIA [id number] [address] STATES [facility] DIAGNOSIS COMMENTH. pylori immunostain is pending on the stomach biopsy.Normal [facility] on above:Order Comment: Specimen Type: TISSUE SPECIMENOrdering Facility: [facility] Address: [address] [place], [place] [address]Performed By: #### 73103-0 ####[facility] LABORATORYCLIA [id number] [address] LABCLIA [id number] [address] on above:Order Comment: Specimen Type: TISSUE SPECIMENOrdering Facility: [facility] Address: [address] [place], [place] [address]Result Comment: A. Stomach, biopsy:- Antral and fundic mucosa with chronic inactive gastritis; see comment.B. Esophagus at 34 cm, biopsy:- Dong's esophagus, negative for dysplasia.C. 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 at 1129 EDTPerformed By: #### 72695-9 ####[facility] LABORATORYCLIA [id number] [address] LABCLIA [id number] [address] LABOhioHealth Grove City Methodist Hospital on above:Order Comment: Specimen Type: TISSUE SPECIMENOrdering Facility: [facility] Address: [address] [place], [place] [address]Result Comment: Diagnostic interpretation performed at: [facility], [address] [address] CLIA# [id number] Director: Whitney Leonardo MDPerformed By: #### 74442-7 ####[facility] LABORATORYCLIA [id number] [address] LABCLIA [id number] [address] DESCRIPTIONOhioHealth Grove City Methodist Hospital on above:Order Comment: Specimen Type: TISSUE SPECIMENOrdering Facility: [facility] Address: [address] [place], [place] [address]Result Comment: A. Stomach, BiopsyReceived in formalin is one piece of [...] 23, 2025 7:53 PMGross examination performed at [facility], [address] [place] [address] Performed By: #### 30762-8 ####[facility]STOPHER[facility] LABORATORYCLIA [id number] [place] [place] [id number] R [facility] LABCLIA [id number] [address]Upmusc health florence [facility] GI endoscopyon [id number] GI endoscopyNormal Lima Memorial HospitalNURSING PROGon [id number] PROGNormalLima Memorial HospitalEG Study observation Narrativeon [id number] Gastrointestinal Endoscopy Patient Name: Thomas Petty Procedure Date: 01/05/2025 2:57 PM Date of : 1970 Admit Type: Outpatient Age: 54 Room: [address] [place] [address] Gender: Male Note Status: Finalized Attending MD: Remy Hardin MD, [id number] Procedure: Upper GI endoscopy Indications: Bloating Providers: [...] previously scheduled. Procedure Code(s): --- Professional --- 67084, 52, Esophagogastroduodenoscopy, flexible, transoral; diagnostic, including collection of specimen(s) by brushing or washing, when performed (separate procedure) CPT copyright 2020 [employer]. All rights (more content not included)...PROVATIONMercy Health West HospitalRadiology Study observation (narrative) [facility] HospitalHISTORY PHYSICALon [id number] PHYSICALNormalCOhioHealth [facility]erington [facility] PROGon [id number] PROGNormalLima Memorial HospitalNURSING PROGNormalLima Memorial HospitalUpper GI endoscopyon [id number] GI endoscopyNormalCTriHealth Bethesda Butler HospitalCNPNon 12-29-2024 CNPNNormalMercy HospitalURSING PROGon [id number] PROGNormal Lima Memorial HospitalXR CHEST (2 VW)on [id number] CHEST (2 VW) EXAMINATION: TWO XRAY VIEWS [...] Signed by: Lauri Billy MD 12/24/24 Final resultNoOhioHealth Marion General HospitalXR Chest 2 Viewson [id number] acute process. [facility] CONSOLIDATEDEXAMINATION: TWO XRAY VIEWS OF THE CHEST 12/24/2024 12:30 pm COMPARISON: 08/08/2024 HISTORY: ORDERING SYSTEM PROVIDED HISTORY: Influenza A TECHNOLOGIST PROVIDED HISTORY: Influenza A, Respiratory difficulties FINDINGS: The lungs are without acute focal process. There is no effusion or pneumothorax. The cardiomediastinal silhouette is stable. The osseous structures are stable. [facility] Lauri Norris MD - 12/24/2024 EXAMINATION: TWO XRAY VIEWS OF THE CHEST 12/24/2024 12:30 pm COMPARISON: 08/08/2024 HISTORY: ORDERING SYSTEM PROVIDED HISTORY: Influenza A TECHNOLOGIST PROVIDED HISTORY: Influenza A, Respiratory difficulties FINDINGS: The lungs are without acute focal process. There is no effusion or pneumothorax. The cardiomediastinal silhouette is stable. The osseous structures are stable. IMPRESSION: No acute process. [facility] Medical CenterRadiology Study observation (narrative)[facility]ster Medical CenterXR Chest 2 ViewsOrdered By: Lauri Billy on [id number] [facility] Work Phone: Cult,Urineon [id number],UrineSpecimen Description .CLEAN CATCH URINE Special Requests Site: Urine Culture NO GROWTH Report Status FINAL 12/19/2024NoOhioHealth Marion General HospitalComment on above: Performed By: #### SALI, CDP, CP #### [facility] [address] [place] [address] [place] [place], [place] [address]83 Chef German: Avelino Mario PCR [place] [id number] sp PCR NEGATIVE: No Campylobacter spp. (jejuni or coli) DNA DetectedNormPremier Health Miami Valley HospitalComment on above:Performed By: #### STLPCR #### [address] [address] Chef German: Reno Duron MD [address] [place] [address] Chef German: BLAIR Mario coli enterotox PCRNEGATIVE: No Enterotoxigenic E. coli (ETEC) Heat-labile and heat-stable (LT/ST)NormalEESelect Medical Specialty Hospital - Columbus SouthComment on above:Result Comment: DNA DetectedPerformed By: #### STLPCR #### [address] [address] Chef German: Reno Duron MD [address] [place], [place] [address]83 Chef German: Victor Hugo Mario PCRNegativeNoSelect Medical Specialty Hospital - Cleveland-FairhillComment on above:Performed By: #### STLPCR #### [facility] [address] [place] [address] Chef German: Reno Duron MD [address] [place] [address] Chef German: Jon Mariomonella sp PCRNegativeNormalSALNEGWhite HospitalComment on above:Performed By: #### STLPCR #### [facility] [address] [place] [address] Chef German: Reno Duron MD [address] [place] [address] Chef German: Mike Mariogatoxin gene PCRNegativeNormalSTXNEGWhite HospitalComment on above:Performed By: #### STLPCR #### [address] [address] Chef German: Reno Duron MD [address] [place] [address] Chef German: Mike Mariogella sp PCRNegativeNormalSHINEGWhite HospitalComment on above:Performed By: #### STLPCR #### [address] [address] Chef German: Reno Duron MD [address] [place] [address] Chef German: Nicki Mariobrio sp PCRNEGATIVE: No Vibrio (V. vulnificus, V, parahaemolyticus and V. cholerae) DNANormalVIBNEGWhite HospitalComascension providence hospital on above:Result Comment: DetectedPerformed By: #### STLPCR #### [facility] [address] [place] [address] Chef German: Reno Duron MD [facility] [address] [place] [address] [address] [place] [address] Chef German: Ziggy Hilario MDYersinia gene PCRNegativeNormalYERNEGWhite HospitalComment on above:Performed By: #### STLPCR #### [address] [place] [address] Chef German: Reno Duron MD [facility] [address] [place] [address] Chef German: Avelino Mario PCR [place] [id number] Description .FECESNormalMerNatchaug HospitalComment on above:Performed By: #### STLPCR #### [facility] Medical CenterSotera Wireless [address] [place] [address] Chef German: Reno Duron MD [facility] [address] [place] [address] Chef German: Ziggy Hilario [facility] with Diffon 70-52-7529Wabrngots (Bld) [#/Vol] 0.11 10*3/uLBon Secours Ashtabula County Medical Centery [facility]cy[facility] HospitalBasophils/100 WBC (Bld)1 %0 - 2 %Bon SecLake Chelan Community Hospitaly [facility] HospitalEosinophils (Bld) [#/Vol]0.06 10*3/uLBon [facility]ours [facility] Eosinophils/100 WBC (Bld)1 %1 - 4 %[facility] HospitalErythrocyte distribution width (RBC) [Ratio]14.8 %High11.8 - 14.4 %[facility] Hematocrit (Bld) [Volume fraction]38.6 %Low40.7 - 50.3 %[facility] Centery Health Hemoglobin (Bld) [Mass/Vol]12.4 g/dLLow13.0 - 17.0 g/dLBon Secours Ashtabula [facility] Medical Centery [facility] Immature granulocytes (Bld) [#/Vol]0.05 10*3/uLBon Secours Mercy [facility] HospitalImmature granulocytes/100 WBC (Bld)0 %0[facility] Centery [facility] HospitalInterpretation and review of laboratory resultsAbnormalBon Secours Mercy HealthLymphocytes/100 WBC (Bld)24 %24 - 43 %[facility] HealthLymphocytes/100 WBC (Bld)2.95 %[facility] Centery [facility] Bucy[facility] HospitalMCH (RBC) [Entitic mass]26.9 pg25.2 - 33.5 pgBon Secours Ashtabula County Medical Centery HealthMCHC (RBC) [Mass/Vol]32.1 g/dL28.4 - 34.8 g/dLBon [facility] Memorial HospitalV (RBC) [Entitic vol]83.7 fL82.6 - 102.9 fLWinchester Medical CenterMonocytes/100 WBC (Bld)10 %3 - 12 %Bon [facility] HospitalMonocytes/100 WBC (Bld)1.19 %[facility]ster Medical CenterNeutrophils/100 WBC (Bld)64 %36 - 65 %[facility]ster Medical CenterNucleated RBC/100 WBC (Bld) [Ratio]0.0 %0.0 per 100 WBCWinchester Medical CenterPlatelet mean volume (Bld) [Entitic vol]9.4 fL8.1 - 13.5 fLWinchester Medical CenterPlatelets (Bld) [#/Vol]538 10*3/uLHighBon [facility] Methodist HospitalRBC (Bld) [#/Vol]4.61 10*6/uL4.21 - 5.77 m/uLBon [facility] HospitalSegmented neutrophils/100 WBC (Bld)7.72 %Winchester Medical CenterWBC other (Bld) [#/Vol] 12.1HighSouthampton Memorial HospitalAbs. Basophil0.11 k/uL Normal0.00-0.20MerOhioHealth Shelby Hospital HospitalComment on above:Performed By: #### IRVING MONTE, CP #### [address] [place] [id number] Chef German: Chen Mario.Imm.Granulocyte0.05 k/uLNormal0.00-0.30MerNatchaug HospitalComment on above:Performed By: #### IRVING MONTE, CP #### [address] [place] [address] Chef German: Chen Mario.Neutrophil (Seg)7.72 k/uLNormal1.50-8.10MerNatchaug HospitalComment on above:Performed By: #### IRVING MONTE, CP #### [address] [place], [place] [address] Chef German: Ziggy Hilario MDBasophils/100 WBC (Bld)1 %Normal0-2Mercy [facility]asant HospitalComment on above:Performed By: #### IRVING MONTE, CP #### [address] [place], [place] [address] Chef German: Ziggy Hilario MDEosinophils (Bld) [#/Vol]0.06 10*3/uLNormal 0.00-0.44[facility] HospitalComment on above:Performed By: #### IRVING MONTE, CP #### [address] [place] [address] Chef German: BLAIR Marioosinophils/100 WBC (Bld)1 %Normal1-4MerOhioHealth Shelby Hospital HospitalComment on above:Performed By: #### IRVING MONTE, CP #### [address] [place] [address] Chef German: Ziggy Hilario MDErythrocyte distribution width (RBC) [Ratio]14.8 % High11.8-14.4[facility] HospitalComment on above:Performed By: #### IRVING MONTE, CP #### [address] [place] [address] Chef German: Ziggy Hilario MDHematocrit (Bld) [Volume fraction]38.6 %Low 40.7-50.3Muniversity hospitals lake west medical centery [place] Pleasant HospitalComment on above:Performed By: #### IRVING MONTE, CP #### [address] [place] [address] Chef German: Ziggy Hilario MDHemoglobin (Bld) [Mass/Vol]12.4 g/dLLow13.0-17.0 [facility] HospitalComment on above:Performed By: #### IRVING MONTE, CP #### [address] [place] [address] Chef German: Janell Mariomature granulocytes/100 WBC (Bld)0 %Atldwe3WdhthWhite HospitalComment on above:Performed By: #### IRVING MONTE, CP #### [address] [place], [facility] Chef German: Ziggy Hilario MDLymphocytes (Bld) [#/Vol]2.95 10*3/uLNormal 1.10-3.70White HospitalComment on above:Performed By: #### IRVING MONTE, CP #### [address] [place], [facility]83 Chef German: Jacki Mariomphocytes/100 WBC (Bld)24 %Qcqqwm22-27EtazgWhite HospitalComment on above:Performed By: #### IRVING MONTE, CP #### [address] [place], [facility]83 Chef German: DARLING Mario (RBC) [Entitic mass]26.9 isCrqwcy96.2-33.5 [facility] HospitalComment on above:Performed By: #### IRVING MONTE, CP #### [address] [place], [facility]83 Chef German: DARLING MarioC (RBC) [Mass/Vol]32.1 g/bLPjnylq16.4-34.8[facility] HospitalComment on above:Performed By: #### IRVING MONTE, CP #### [address] [place] [address] Chef German: NANCY MarioCV (RBC) [Entitic vol]83.7 kMGcnuuv44.6-102.9 [facility] HospitalComment on above:Performed By: #### IRVING MONTE, CP #### [address] [place] [address] Chef German: NANCY Marioonocytes (Bld) [#/Vol]1.19 10*3/uLNormal0.10-1.20 [facility] HospitalComment on above:Performed By: #### IRVING MONTE, CP #### [address] [place] [address] Chef German: NANCY Marioonocytes/100 WBC (Bld)10 %Normal3-12[facility] HospitalComment on above:Performed By: #### IRVING MONTE, CP #### [address] [place] [address] Chef German: Ziggy Hilario MDNeutrophil (Seg)64 %Ongdbg70-10Hnabw Tiffin HospitalComment on above:Performed By: #### IRVING MONTE, CP #### [address] [place] [address] Chef German: Ziggy Hilario MDNRBC Automated0.0 per 100 WBCNormal0.0[facility] HospitalComment on above:Performed By: #### IRVING MONTE, CP #### [address] [place] [address] Chef German: Yessi Mariotelet mean volume (Bld) [Entitic vol]9.4 fL Normal8.1-13.5[facility] HospitalComment on above:Performed By: #### IRVING MONTE, CP #### [address] [place], [place] 436[address]83 Chef German: SUJATA Mariolatelets (Bld) [#/Vol]538 10*3/xGOxsw162-739Twpxu Tiffin HospitalComment on above:Performed By: #### IRVING MONTE, CP #### [place] [address] [place], [place] 8[address]83 Chef German: TIERRA Mario ([facility]) [#/Vol]4.61 10*6/uLNormal4.21-5.77MerNatchaug HospitalComment on above:Performed By: #### IRVING MONTE, CP #### [facility] [address] [place], [place] [address]883 Chef German: ANN Mario ([facility]) [#/Vol]12.1 10*3/uLHigh3.5-11.3[facility]asant HospitalComment on above:Performed By: #### IRVING MONTE, HERNAN #### [address] [place], [place] [address]683 Chef German: BRITNI Mariorupert 69-38-9634Virxbhn [Mass/Vol]4.4 g/dL3.5 - 5.2 g/dLBon [facility] HospitalAlbumin/Globulin [Mass ratio]1.8 {ratio}1.0 - 2.5Bon [facility] HealthALP [Catalytic activity/Vol]149 U/LHigh40 - 129 U/L Bon [facility] HospitalALT [Catalytic activity/Vol]47 U/L10 - 50 U/LBon [facility] HospitalAnion gap [Moles/Vol]10 mmol/L9 - 16 mmol/LBon [facility] AST [Catalytic activity/Vol]37 U/L10 - 50 U/LBon [facility] HospitalBilirubin [Mass/Vol]0.2 mg/dL0.00 - 1.20 mg/dLBon [facility] HealthCalcium [Mass/Vol] 9.6 mg/dL8.6 - 10.4 mg/dLBon [facility] HealthChloride [Moles/Vol]101 mmol/L 98 - 107 mmol/LBon [facility] HealthCO2 [Moles/Vol]27 mmol/L20 - 31 mmol/LBon [facility] HospitalCreatinine [Mass/Vol]0.9 mg/dL0.70 - 1.20 mg/dLBon [facility] HealthEst, [place] Filt Rate- PINFBon [facility] Community HospitalEvocalize [facility] HospitalComment on above: These results are not intended [...] therapy that affects renal tubular secretion. Glucose [Mass/Vol]146 mg/iSTojo02 - 99 mg/dLBon [facility] HealthPotassium [Moles/Vol]4.3 mmol/L3.7 - 5.3 mmol/LBon [facility] HospitalEvocalize HealthProtein [Mass/Vol] 6.7 g/dL6.6 - 8.7 g/dLBon [facility] HospitalSodium [Moles/Vol]138 mmol/L136 - 145 mmol/LBon [facility] HospitalUrea nitrogen [Mass/Vol]10 mg/dL6 - 20 mg/dL Bon [facility] HospitalUrea nitrogen/Creatinine [Mass ratio]11 mg/mg9 - 20Bon [facility] Populr [facility] HospitalCT CHEST ABDOMEN PELVIS W CONTRASTon 63-07-3525ST CHEST ABDOMEN PELVIS W CONTRASTEXAMINATION: CT OF THE CHEST, ABDOMEN, AND PELVIS [...] No perienteric inflammatory change. Status post appendectomy. Peritoneum/Retroperitoneum: No lymphadenopathy or ascites is present. Aorta/IVC: [...] Signed by: Fantasma Chanel MD 12/05/24 Final resultNormalMerThe Hospital of Central Connecticut Chest and Abdomen and Pelvis W contrast Thee 76-35-9590Itegrnqxprmfm changes as described without complicating features evident. No CT findings to explain abdominal or right-sided rib pain. MHPN RIS CONSOLIDATEDEXAMINATION: CT OF THE CHEST, ABDOMEN, AND PELVIS [...] No perienteric inflammatory change. Status post appendectomy. Peritoneum/Retroperitoneum: No lymphadenopathy or ascites is present. Aorta/IVC: Aorta is normal in caliber. No evidence of aneurysm. Unremarkable IVC. Bladder: Nondistended. Bones/Soft Tissues: Exaggerated thoracic kyphosis. Status post multilevel vertebral body augmentation. Status post sternal ORIF with plate and screw construct. No evident hardware complication. [facility] Fantasma Darby MD - 12/05/2024 EXAMINATION: CT OF THE [...] No perienteric inflammatory change. Status post appendectomy. Peritoneum/Retroperitoneum: No lymphadenopathy or ascites is present. Aorta/IVC: Aorta is normal in caliber. No evidence of aneurysm. Unremarkable IVC. Bladder: Nondistended. Bones/Soft Tissues: Exaggerated thoracic kyphosis. Status post multilevel vertebral body augmentation. Status post sternal ORIF with plate and screw construct. No evident hardware complication. IMPRESSION: Postoperative changes as described without complicating features evident. No CT findings to explain abdominal or right-sided rib pain. [facility] CenterRadiology Study observation (narrative)[facility] Chest and Abdomen and Pelvis W contrast IVOrdered By: Fantasma Chanel on 44-03-3646Mvr [facility] Work Phone: Comp Metabolic Profon 39-19-9422Jawtzlp [Mass/Vol]4.4 g/dLNormal3.5-5.2[facility] HospitalComment on above:Performed By: #### IRVING MONTE, CP #### [address] [place] [address] Chef German: Ziggy Hilario MDAlbumin/Glob Ratio1.8Xdqjnz8.0-2.5White HospitalComment on above:Performed By: #### IRVING MONTE, CP #### [address] [place] [address] Chef German: Tsering Mariokaline Rmmo256 U/WNkuq15-230BsumqWhite HospitalComment on above:Performed By: #### IRVING MONTE, CP #### [address] [place] [address] Chef German: Ziggy Hilario MDALT [Catalytic activity/Vol]47 U/PZtlnpd08-05XzwmcNatchaug HospitalComment on above:Performed By: #### IRVING MONTE, CP #### [facility] [address] [place] [address] [place] [address] Chef German: Ziggy Hilario MDAnion gap [Moles/Vol]10 mmol/LNormal9-16White HospitalComment on above:Performed By: #### IRVING MONTE, CP #### [facility] [address] [place] [address] [place] [address] Chef German: Ziggy Hilario MDAST [Catalytic activity/Vol]37 U/RSpdrfs52-28FqtozWhite HospitalComment on above:Performed By: #### IRVING MONTE, CP #### [address] [place] [address] Chef German: Ziggy Hilario MDBilirubin [Mass/Vol]0.2 mg/dLNormal0.00-1.20White HospitalComment on above:Performed By: #### IRVING MONTE, CP #### [address] [place] [address] Chef German: Ziggy Hilario MDBUN/CRE Gxrda68Cifvcm6-85Cxzky [facility] Comment on above:Performed By: #### IRVING MONTE, CP #### [address] [place] [address] Chef German: BRITNI Marioalcium [Mass/Vol]9.6 mg/dLNormal8.6-10.4White HospitalComment on above:Performed By: #### IRVING MONTE, CP #### [facility] [address] [place] [address] [place] [address] Chef German: BRITNI Mariohloride [Moles/Vol]101 mmol/YJhidrv76-217CgltcWhite HospitalComment on above:Performed By: #### IRVING MONTE, CP #### [facility] [address] [place] [address] [place] [address] Chef German: BRITNI MarioO2 [Moles/Vol]27 mmol/FGpakck85-49HujcmWhite HospitalComment on above:Performed By: #### IRVING MONTE, CP #### [address] [place], [place] [address] Chef German: BRITNI Marioreatinine [Mass/Vol]0.9 mg/dLNormal0.70-1.20White HospitalComment on above:Performed By: #### IRVING MONTE, CP #### [address] [place], [place] [address]83 Chef German: Ziggy Hilario MDGFR/1.73 sq M.predicted among non-blacks MDRD (S/P/Bld) [Vol rate/Area]mL/min/{1.73_m2}Normal>60White HospitalComment on above:Result Comment: These results are not intended for [...] or following therapy that affects renal tubular secretion.Performed By: #### IRVING MONTE, CP #### [address] [place] [address] Chef German: Ziggy Hilario MDGlucose [Mass/Vol]146 mg/xYDptw28-98Suhyl [facility]iffin HospitalComment on above:Performed By: #### IRVING MONTE, CP #### [address] [place] [address] Chef German: SUJATA Mariootassium [Moles/Vol]4.3 mmol/LNormal3.7-5.3MWilson Memorial HospitalComment on above:Performed By: #### IRVING MONTE, CP #### [address] [place] [address] Chef German: SUJATA Mariorotein [Mass/Vol]6.7 g/dLNormal6.6-8.7White HospitalComment on above:Performed By: #### IRVING MONTE, CP #### [address] [place], [place] [address] Chef German: PIEDAD Marioodium [Moles/Vol]138 mmol/KQqftrh180-692Ktmwj [facility]iff[facility] HospitalComment on above:Performed By: #### IRVING MONTE, CP #### [address] [place], [place] [address] Chef German: Ziggy Hilario MDUrea nitrogen [Mass/Vol]10 mg/dLNormal6-20MerNatchaug HospitalComment on above:Performed By: #### IRVING MONTE, CP #### [address] [place], [place] [address] Chef German: Ziggy Hilario MDLactic Acidon 68-89-3715Beeixdi (BldV) [Moles/Vol] 1.2 mmol/L0.5 - 2.2 mmol/LBon [facility] HospitalBon [facility] Lactate [Moles/Vol]1.2 mmol/LNormal0.5-2.2MWilson Memorial HospitalComment on above: Performed By: #### IRVING MONTE, CP #### [address] [place], [facility] Chef German: Ziggy Hilario MDLipaseon 50-60-4243Rbigng [Catalytic activity/Vol] 7 U/LLow13 - 60 U/LBon [facility] HospitalLipase [Catalytic activity/Vol]7 U/L Eok82-11ObhteWhite HospitalComment on above:Performed By: #### IRVING MONTE, CP #### [address] [place], [place] [address] Chef German: Ziggy Hilario MDNo Panel Informationon 13-56-6869Kibtqugkopkxto and review of laboratory resultsAbLewis and Clark Specialty HospitalCNPNon 95-62-3938BJWSUlmefvUeipcggfm Clinic ClevelandCNPNon 15-47-1577MOEGXtysatPbunyzayk Clinic ClevelandXR ELBOW LEFT (MIN 3 VIEWS)on 33-00-4786MY ELBOW LEFT (MIN 3 VIEWS)EXAMINATION: THREE XRAY VIEWS OF THE LEFT HAND; [...] Signed by: Diana Curtis MD 12/01/24 Final resultNoOhioHealth Marion General HospitalXR HAND LEFT (MIN 3 VIEWS)on 01-[birth year]-1933IN HAND LEFT (MIN 3 VIEWS)EXAMINATION: THREE XRAY VIEWS OF THE LEFT HAND; [...] Signed by: Diana Curtis MD 12/01/24 Final [facility]NoMer[facility] THORACIC SPINE WO CONTRASTon 15-81-8372RQ THORACIC SPINE WO CONTRASTEXAMINATION: CT OF THE THORACIC SPINE WITHOUT CONTRAST [...] Signed by: Bebeto Ring MD 11/30/24 Final resultNoMer[facility] Thoracic spine WO contraston . No acute osseous abnormality. 2. Fatty liver. [facility] CONSOLIDATEDEXAMINATION: CT OF THE THORACIC SPINE WITHOUT CONTRAST [...] the thoracic spine. SOFT TISSUES: Fatty liver. [facility] Bebeto Adkins MD - 11/30/2024 EXAMINATION: CT OF THE [...] No acute osseous abnormality. 2. Fatty liver. [facility] (narrative)[facility] Thoracic spine WO contrastOrdered By: Bebeto Ring on 25-00-3028Fbo [facility] Work Phone: Cult,Urineon 82-32-7940Llmw,UrineSpecimen Description .CLEAN CATCH URINE Special Requests Site: Urine Culture NO GROWTH Report Status FINAL 11/28/2024NoOhioHealth Marion General HospitalComment on above: Performed By: #### URC #### [employer] [address] [place] [address] Chef German: Reno Duron MD [facility] [address] [place] [address] Chef German: Keo Mario 47-52-8061YRYGXrctueCpnqixgamLutheran HospitalCNNURSEon 19-24-3280ECOIAGVYmdjbwRhkykljlr Clinic ClevelandCNPNon 67-13-5543RLQPWrajlbGpfndsqwdLutheran HospitalCNOVon 55-19-1048BWYKGizyaa [facility] HospitalCNPNon 29-85-8779PYYHTlyplmHohrazidsLutheran Hospital CNPNon 97-89-2117WHAIGxtbqkEdlmiyzygLutheran HospitalCNPNon 84-68-2289PEPFAjekky [facility] HospitalCNPNon 77-78-9119NOCEYjjfrgMzdvvlnhrLutheran Hospital CNPNon 47-30-6210DQUYWfprphFmyipiesaLutheran HospitalCONSULT PROGon 09-04-2024 CONSULT PROGNLutheran HospitalBasic metabolic 2000 panelon 34-72-0448Mjtgo gap [Moles/Vol]11 mmol/LNormal8-15[facility] Comment on above:Order Comment: Specimen Type: BLOOD SPECIMENOrdering Facility: [facility] Address:[address] [place] [address] Performed By: #### 20232-5, 2776-10, ####[facility] LABCLIA [id number] [address] [address] [place] AMERICACalcium [Mass/Vol]8.8 mg/dLNormal8.5-10.2CTriHealth [facility] Comment on above:Order Comment: Specimen Type: BLOOD SPECIMENOrdering Facility: [facility] Address:[address] [place] [address] Performed By: #### 52055-8, 2776-10, ####[facility] LABCLIA [id number], [place] [address] [place] AMERICAChloride [Moles/Vol]99 mmol/IChwgxc43-557NhileqaapLima Memorial Hospital Comment on above:Order Comment: Specimen Type: BLOOD SPECIMENOrdering Facility: [facility] Address:[address] [place] [address] Performed By: #### 88580-9, 2776-10, ####[facility] LABCLIA [id number] [place] [address] [place] AMERICACO2 [Moles/Vol]25 mmol/HKksfzh09-67NypemwcgtLima Memorial HospitalComment on above:Order Comment: Specimen Type: BLOOD SPECIMENOrdering Facility: [facility] Address:[address] [place], [place] [address]Performed By: #### 43618-9, 2776-10, ####[facility] LABCLIA [id number] [address] [address] [place] Creatinine [Mass/Vol]0.82 mg/dLNormal0.73-1.22[facility] on above:Order Comment: Specimen Type: BLOOD SPECIMENOrdering Facility: [facility] Address:[address] [place] [address] Performed By: #### 68518-2, 2777-, ####[facility] LABCLIA [id number], [place] [address] [place] AMERICACreatinine and Glomerular filtration rate.predicted panel (S/P/Bld)104 mL/min/1.73m???Normal>=60[facility] on above:Order Comment: Specimen Type: BLOOD SPECIMENOrdering Facility: [facility] Address:[address] [place], [place] [address]Result Comment: Estimated Glomerular Filtration Rate (eGFR) is calculated using the 2020 CKD-EPI cre atinine equation. This equation utilizes serum creatinine, sex, and age as parameters. The creatinine assay has traceable calibration to isotope dilution- mass spectrometry. Refer to KDIGO guidelines for clinical interpretation. In patients with unstable renal function, e.g. those with acute kidney injury, the eGFR may not accurately reflect actual GFR.Performed By: #### 22236-6, 2776-10, ####[facility] LABCLIA [id number] [address] [place] AMERICAGlucose [Mass/Vol]227 mg/dLHigh 74-99[facility] on above:Order Comment: Specimen Type: BLOOD SPECIMENOrdering Facility: [facility] Address:[address] [place] [address]Result Comment: The [place] Diabetes Association (ADA) provides guidance for cutoff [...] unequivocal hyperglycemia, results should be confirmed by repeattesting. In a patient with classic symptoms of hyperglycemia or hyperglycemic crisis, random plasmaglucose results greater than or equal to 200 mg/dL meet the criteria for diagnosis of diabetes.Reference: Standards of Medical Care in Diabetes 2016, [place] Diabetes Association. Diabetes Care. 2016.39(Suppl 1).Performed By: #### 16311- 2, 2776-10, ####[facility] LABCLIA [id number] [place] [id number] [place] AMERICAPotassium [Moles/Vol] 4.3 mmol/LNormal3.7-5.1CRegency Hospital [facility] on above:Order Comment: Specimen Type: BLOOD SPECIMENOrdering Facility: [facility] Address:[address] [place], [place] [address]Performed By: #### 98659-2, 27704-21, ####[facility] LABIA [id number] [address] [place] AMERICASodium [Moles/Vol]135 mmol/LLow 136-144[facility] on above:Order Comment: Specimen Type: BLOOD SPECIMENOrdering Facility: [facility] Address:[address] [place], [place] [address]Performed By: #### 94391-2, 2776-10, ####[facility] LABIA [id number] STATES OF AMERICAUrea nitrogen [Mass/Vol]9 mg/dL Normal9-24[facility] on above:Order Comment: Specimen Type: BLOOD SPECIMENOrdering Facility: [facility] Address:[address] [place], [place] [address]Performed By: #### 63274-0, 2776-10, ####[facility] LABIA [id number] VIL[place] [address] [place] AMERICACASE MANAGEMon 26-90-4869HVVM MANAGEMNormalLima Memorial HospitalCB panel Auto (Bld)on 09-03-2024 Erythrocyte distribution width (RBC) [Ratio]13.2 %Rixyms88.5-15.0[facility] on above:Order Comment: Specimen Type: BLOOD SPECIMENOrdering Facility: [facility] Address:[address] [place], [place] [address]Performed By: #### 45725-9 ####[facility] LABIA [id number] [place] [address] [place] AMERICAHematocrit (Bld) [Volume fraction]25.9 %Low39.0-51.0[facility] on above:Order Comment: Specimen Type: BLOOD SPECIMENOrdering Facility: [facility] Address:[address] [place], [place] [address]Performed By: #### 94435-5 ####[facility] LABIA [id number] [place] [address] [place] Hemoglobin (Bld) [Mass/Vol]8.3 g/dLLow13.0-17.0[facility] on above:Order Comment: Specimen Type: BLOOD SPECIMENOrdering Facility: [facility] Address:[address] [place] [address] Performed By: #### 62693-0 ####[facility] LABIA [id number] [place] [address] [place] MCH (RBC) [Entitic mass]29.1 okKocblp56.0-34.0[facility] on above:Order Comment: Specimen Type: BLOOD SPECIMENOrdering Facility: [facility] Address:[address] [place] [address] Performed By: #### 41776-5 ####[facility] LABIA [id number] [place] [address] [place] MCHC (RBC) [Mass/Vol]32.0 g/eJGlrfms24.5-36.0[facility] on above:Order Comment: Specimen Type: BLOOD SPECIMENOrdering Facility: [facility] Address:[address] [place] [address] Performed By: #### 65581-0 ####[facility] LABIA [id number] [place] [address] [place] MCV (RBC) [Entitic vol]90.9 uEZiqnyw91.0-100.0[facility] on above:Order Comment: Specimen Type: BLOOD SPECIMENOrdering Facility: [facility] Address:[address] [place] [address] Performed By: #### 45296-0 ####[facility] LABIA [id number] [place] [address] [place] Nucleated RBC (Bld) [#/Vol]0.03 10*3/uLHigh<0.01[facility] Comment on above:Order Comment: Specimen Type: BLOOD SPECIMENOrdering Facility: [facility] Address:[address] [place] [address] Performed By: #### 36004-2 ####[facility] LABIA [id number] [place] [address] [place] Platelet mean volume (Bld) [Entitic vol]9.4 fLNormal9.0-12.7CRegency Hospital [facility] on above:Order Comment: Specimen Type: BLOOD SPECIMENOrdering Facility: [facility] Address:[address] [place], [place] [address]Performed By: #### 25032-8 ####[facility] LABIA [id number] [place] [address] [place] Platelets (Bld) [#/Vol]548 10*3/zIJijv517-253VohstadteDayton Children's Hospital on above:Order Comment: Specimen Type: BLOOD SPECIMENOrdering Facility: [facility] Address:[address] [place] [address] Performed By: #### 87756-6 ####[facility] LABIA [id number] [place] [address] [place] RBC (Bld) [#/Vol]2.85 10*6/uLLow4.20-6.00[facility] on above:Order Comment: Specimen Type: BLOOD SPECIMENOrdering Facility: [facility] Address:[address] [place], [place] [address]Performed By: #### 56297-7 ####[facility] LABCLIA [id number] [place] [address] [place] AMERICAWBC (Bld) [#/Vol]13.25 10*3/uLHigh3.70-11.00[facility] on above:Order Comment: Specimen Type: BLOOD SPECIMENOrdering Facility: [facility] Address:[address] [place], [place] [address]Performed By: #### 39957-9 ####[facility] LABCLIA [id number] [place] [address] [place] AMERICACNDSon 85-48-2860WGUYSrfksd [facility] HospitalCONSULT PROGon 27-62-7580XHRCBYR PROGNormalLima Memorial HospitalMagnesium SerPl-mCncon 92-08-7722Jxbmwzvgt [Mass/Vol]1.9 mg/dL Normal1.7-2.3CRegency Hospital [facility] on above:Order Comment: Specimen Type: BLOOD SPECIMENOrdering Facility: [facility] Address:[address] [place], [place] [address]Performed By: #### 98653-4, 2777-1, 99267-9 ####[facility] LABCLIA [id number] [address] [place] AMERICANUTRITIONon 16-78-2269ZGDBZWHCO NormalLima Memorial HospitalPT EDon 86-65-7665YQ EDNormalCCenterville EDNormalCTriHealth Bethesda Butler HospitalPhosphate SerPl-mCncon 09-03-2024 Phosphate [Mass/Vol]2.2 mg/dLLow2.7-4.8CRegency Hospital [facility] on above:Order Comment: Specimen Type: BLOOD SPECIMENOrdering Facility: [facility] Address:[address] [place], [place] [address]Performed By: #### 24593-8, 2776-1, ####[facility] LABCLIA [id number] [place] [id number] [place] Basic metabolic 2000 panelon 49-66-0866Iowko gap [Moles/Vol]13 mmol/LNormal8-15 [facility] on above:Order Comment: Specimen Type: BLOOD SPECIMENOrdering Facility: [facility] Address:[address] [place], [place] [address]Performed By: #### 2777-1, , 00745-5 ####[facility] LABCLIA [id number] [address] [place] AMERICACalcium [Mass/Vol]8.6 mg/dLNormal8.5-10.2CRegency Hospital [facility] on above:Order Comment: Specimen Type: BLOOD SPECIMENOrdering Facility: [facility] Address:[address] [place], [place] [address]Performed By: #### 2777-1, , 64861-1 ####[facility] LABCLIA [id number] [place] [address] [place] AMERICAChloride [Moles/Vol]101 mmol/SXtvwls19-566 [facility] on above:Order Comment: Specimen Type: BLOOD SPECIMENOrdering Facility: [facility] Address:[address] [place], [place] [address]Performed By: #### 2777-1, , 89678-2 ####[facility] LABCLIA [id number] [address] [address] [place] AMERICACO2 [Moles/Vol]25 mmol/VHcxusn10-45ObiuxbfsuDayton Children's Hospital on above:Order Comment: Specimen Type: BLOOD SPECIMENOrdering Facility: [facility] Address:[address] [place], [place] [address]Performed By: #### 2777-1, , ####[facility] LABCLIA [id number] [address] [place] AMERICACreatinine [Mass/Vol]0.84 mg/dLNormal0.73-1.22 [facility] on above:Order Comment: Specimen Type: BLOOD SPECIMENOrdering Facility: [facility] Address:[address] [place], [place] [address]Performed By: #### 2777-1, , ####[facility] LABIA [id number] [address] [place] AMERICACreatinine and Glomerular filtration rate.predicted panel (S/P/Bld)104 mL/min/1.73m???Normal>=60[facility] on above:Order Comment: Specimen Type: BLOOD SPECIMENOrdering Facility: [facility] Address:[address] [place], [place] [address]Result Comment: Estimated Glomerular Filtration Rate (eGFR) is calculated using the 2020 CKD-EPI creatinine equation. This equation utilizes serum creatinine, sex, and age as parameters. The creatinine assay has traceable calibration to isotope dilution-mass spectrometry. Refer to KDIGO guidelines for clinical interpretation. In patients with unstable renal function, e.g. those with acute kidney injury, the eGFR may not accurately reflect actual GFR. Performed By: #### 2777-1, , ####[facility] LABIA [id number] VIL[place] [address] [place] AMERICAGlucose [Mass/Vol]119 mg/nQNawr30-68LoxfmzhqwDayton Children's Hospital on above:Order Comment: Specimen Type: BLOOD SPECIMENOrdering Facility: [facility] Address:[address] [place], [place] [address]Result Comment: The [place] Diabetes Association (ADA) provides guidance for cutoff [...] unequivocal hyperglycemia, results should be confirmed by repeattesting. In a patient with classic symptoms of hyperglycemia or hyperglycemic crisis, random plasmaglucose results greater than or equal to 200 mg/dL meet the criteria for diagnosis of diabetes.Reference: Standards of Medical Care in Diabetes 2016, [place] Diabetes Association. Diabetes Care. 2016.39(Suppl 1).Performed By: #### 2777-1, , ####[facility] LABIA [id number] [address] [place] AMERICAPotassium [Moles/Vol]3.4 mmol/LLow3.7-5.1CRegency Hospital [facility] on above:Order Comment: Specimen Type: BLOOD SPECIMENOrdering Facility: [facility] Address:[address] [place], [place] [address]Performed By: #### 2777-1, , ####[facility]ITALIA [id number] [address] [place] AMERICASodium [Moles/Vol]139 mmol/PDyvxmr037-781EujbilbloDayton Children's Hospital on above:Order Comment: Specimen Type: BLOOD SPECIMENOrdering Facility: [facility] Address:[address] [place], [place] [address]Performed By: #### 2777-1, , 46761-2 ####[facility] LABIA [id number] [address] [place] AMERICAUrea nitrogen [Mass/Vol]13 mg/dLNormal9-24 [facility] on above:Order Comment: Specimen Type: BLOOD SPECIMENOrdering Facility: [facility] Address:[address] [place], [place] [address]Performed By: #### 2777-1, 23631-7, 09749-0 ####[facility] LABCLIA [id number], [place] [address] [place] [facility] HOSPITALCBC panel Auto (Bld)on 67-15-2158Hxixicppyjj distribution width (RBC) [Ratio]13.0 %Qjrnhl16.5-15.0[facility] Comment on above:Order Comment: Specimen Type: BLOOD SPECIMENOrdering Facility: [facility] Address:[address] [place] [address] Performed By: #### 81632-8 ####[facility] LABIA [id number] [place] [address] [place] Hematocrit (Bld) [Volume fraction]25.0 %Low39.0-51.0[facility] Comment on above:Order Comment: Specimen Type: BLOOD SPECIMENOrdering Facility: [facility] Address:[address] [place] [address] Performed By: #### 13809-8 ####[facility] HOSPITALIA [id number] [place] [address] [place] Hemoglobin (Bld) [Mass/Vol]8.0 g/dLLow13.0-17.0[facility] HospitalComment on above:Order Comment: Specimen Type: BLOOD SPECIMENOrdering Facility: [facility] Address:[address] [place] [address] Performed By: #### 85992-8 ####[facility] LABIA [id number] [place] [address] [place] MCH (RBC) [Entitic mass]28.9 qzPcmlee55.0-34.0[facility] HospitalComment on above:Order Comment: Specimen Type: BLOOD SPECIMENOrdering Facility: [facility] Address:[address] [place] [address] Performed By: #### 84824-3 ####[facility] LABIA [id number] [place] [address] [place] MCHC (RBC) [Mass/Vol]32.0 g/zNZcogih00.5-36.0[facility] Hospitalment on above:Order Comment: Specimen Type: BLOOD SPECIMENOrdering Facility: [facility] Address:[address] [place] [address] Performed By: #### 08894-6 ####[facility] [id number] [place] [address] [place] MCV (RBC) [Entitic vol]90.3 qXRisduy70.0-100.0[facility] on above:Order Comment: Specimen Type: BLOOD SPECIMENOrdering Facility: [facility] Address:[address] [place] [address] Performed By: #### 77000-4 ####[facility] [id number] [place] [address] [place] Nucleated RBC (Bld) [#/Vol]0.04 10*3/uLHigh<0.01[facility] Comment on above:Order Comment: Specimen Type: BLOOD SPECIMENOrdering Facility: [facility] Address:[address] [place] [address] Performed By: #### 23153-2 ####[facility] [id number] [place] [address] [place] Platelet mean volume (Bld) [Entitic vol]9.3 fLNormal9.0-12.7CRegency Hospital [facility] on above:Order Comment: Specimen Type: BLOOD SPECIMENOrdering Facility: [facility] Address:[address] [place], [place] [address]Performed By: #### 69035-6 ####[facility] [id number] [place] [address] [place] Platelets (Bld) [#/Vol]435 10*3/tEUccr145-905NhynblbzrDayton Children's Hospital on above:Order Comment: Specimen Type: BLOOD SPECIMENOrdering Facility: [facility] Address:[address] [place] [address] Performed By: #### 75215-9 ####[facility] LABCLIA [id number] [place] [address] [place] RBC (Bld) [#/Vol]2.77 10*6/uLLow4.20-6.00[facility] on above:Order Comment: Specimen Type: BLOOD SPECIMENOrdering Facility: [facility] Address:[address] [place], [place] [address]Performed By: #### 47273-0 ####[facility] LABCLIA [id number] [place] [address] [place] AMERICAWBC (Bld) [#/Vol]10.80 10*3/uLNormal3.70-11.00[facility] on above:Order Comment: Specimen Type: BLOOD SPECIMENOrdering Facility: [facility] Address:[address] [place], [place] [address]Performed By: #### [id number] ####[facility] LABCLIA [id number] [place] [address] [place] AMERICACONSULT PROGon [id number] PROGNormalLima Memorial HospitalMagnesium SerPl-mCncon [id number] [Mass/Vol]1.9 mg/dLNormal1.7-2.3CRegency [facility] on above:Order Comment: Specimen Type: BLOOD SPECIMENOrdering Facility: [facility] Address:[address] [place], [place] [address]Performed By: #### 2777- 1, 96696-8, 54686-5 ####[facility] LABCLIA [id number] [place] [address] [place] AMERICAPhosphate SerPl-mCncon 75-91-5654Ipqaiyllv [Mass/Vol]2.5 mg/dLLow2.7-4.8CRegency Hospital [facility] on above:Order Comment: Specimen Type: BLOOD SPECIMENOrdering Facility: [facility] Address:[address] [place], [place] [address]Performed By: #### 2777-1, 90393-2, 52343-9 ####[facility] LABCLIA [id number] [address] [place] AMERICABasic metabolic 2000 panelon 15-12-9750Udqcc gap [Moles/Vol]14 mmol/LNormal8-15[facility] on above:Order Comment: Specimen Type: BLOOD SPECIMENOrdering Facility: [facility] Address:[address] [place], [place] [address]Performed By: #### 77926-3, , 2776- ####[facility] LABCLIA [id number] [address] [place] AMERICACalcium [Mass/Vol]8.4 mg/dLLow 8.5-10.2CRegency Hospital [place] on above:Order Comment: Specimen Type: BLOOD SPECIMENOrdering Facility: [facility] Address:[address] [place], [place] [address]Performed By: #### 82385-5, , 2776- ####[facility] LABCLIA [id number] [place] [address] [place] AMERICAChloride [Moles/Vol]102 mmol/L Htmbim78-739DveiidwjgDayton Children's Hospital on above:Order Comment: Specimen Type: BLOOD SPECIMENOrdering Facility: [facility] Address:[address] [place], [place] [address]Performed By: #### 75613-3, 29542-5, 2776-1 ####[facility] LABCLIA [id number], [place] [address] [place] AMERICACO2 [Moles/Vol]24 mmol/LNormal 22-30[facility] on above:Order Comment: Specimen Type: BLOOD SPECIMENOrdering Facility: [facility] Address:[address] [place], [place] [address]Performed By: #### 77636-8, , 2776-10 ####[facility] LABCLIA [id number], [place] [address] [place] AMERICACreatinine [Mass/Vol]0.73 mg/dL Normal0.73-1.22[facility] on above:Order Comment: Specimen Type: BLOOD SPECIMENOrdering Facility: [facility] Address:[address] [place], [place] [address]Performed By: #### 07546-8, , 2776-10 ####[facility]ITALIA [id number] SMITH STREETCreatinine and Glomerular filtration rate.predicted panel (S/P/Bld)108 mL/min/1.73m???Normal>=60[facility] on above:Order Comment: Specimen Type: BLOOD SPECIMENOrdering Facility: [facility] Address:[address] [place], [place] [address]Result Comment: Estimated Glomerular Filtration Rate (eGFR) is calculated using the 2020 CKD-EPI creatinine equation. This equation utilizes serum creatinine, sex, and age as parameters. The creatinine assay has traceable calibration to isotope dilution-mass spectrometry. Refer to KDIGO guidelines for clinical interpretation. In patients with unstable renal function, e.g. those with acute kidney injury, the eGFR may not accurately reflect actual GFR.Performed By: #### 58165-4, , 2776-10 ####[facility] LABCLIA [id number] VILLE [address] [place] AMERICAGlucose [Mass/Vol]158 mg/oBMvoi91-19Htwqojosg Clinic ClevelandComment on above:Order Comment: Specimen Type: BLOOD SPECIMENOrdering Facility: [facility] Address:[address] [place], [place] [address]Result Comment: The [place] Diabetes Association (ADA) provides guidance for cutoff [...] unequivocal hyperglycemia, results should be confirmed by repeattesting. In a patient with classic symptoms of hyperglycemia or hyperglycemic crisis, random plasmaglucose results greater than or equal to 200 mg/dL meet the criteria for diagnosis of diabetes.Reference: Standards of Medical Care in Diabetes 2016, [place] Diabetes Association. Diabetes Care. 2016.39(Suppl 1).Performed By: #### 66532- 2, , 2776-10 ####[facility] LABCLIA [id number] [address] [place] AMERICAPotassium [Moles/Vol] 4.0 mmol/LNormal3.7-5.1CRegency Hospital [facility] on above:Order Comment: Specimen Type: BLOOD SPECIMENOrdering Facility: [facility] Address:[address] [place], [place] [address]Performed By: #### 81243-8, , 2776-10 ####[facility] LABCLIA [id number] VILLE [address] [place] STATES OF AMERICASodium [Moles/Vol]140 mmol/L Wzdwpl562-537JcvulvuybDayton Children's Hospital on above:Order Comment: Specimen Type: BLOOD SPECIMENOrdering Facility: [facility] Address:[address] [place], [place] [address]Performed By: #### 45656-2, , 2776-10 ####[facility] LABCLIA [id number] VILLE [address] [place] AMERICAUrea nitrogen [Mass/Vol]14 mg/dL Normal9-24[facility] on above:Order Comment: Specimen Type: BLOOD SPECIMENOrdering Facility: [facility] Address:[address] [place], [place] [address]Performed By: #### 32784-5, 73797-3, 2777-1 ####[facility] LABCLIA [id number] [place] [address] [place] [facility] HOSPITALCASE MANAGEMon 76-59-9690OVIY MANAGEMNormalSelect Medical [facility] panel Auto (Bld)on 09-01-2024 Erythrocyte distribution width (RBC) [Ratio]13.1 %Cxamst41.5-15.0[facility] on above:Order Comment: Specimen Type: BLOOD SPECIMENOrdering Facility: [facility] Address:[address] [place], [place] [address]Performed By: #### 12334-1 ####[facility] LABCLIA [id number] [address] STATES OF [facility]IAL HOSPITALHematocrit (Bld) [Volume fraction]24.5 %Low39.0-51.0[facility] on above:Order Comment: Specimen Type: BLOOD SPECIMENOrdering Facility: [facility] Address:[address] [place], [place] [address]Performed By: #### 80867-3 ####[facility] LABCLIA [id number] [address] [place] Hemoglobin (Bld) [Mass/Vol]7.8 g/dLLow13.0-17.0[facility] on above:Order Comment: Specimen Type: BLOOD SPECIMENOrdering Facility: [facility] Address:[address] [place] [address] Performed By: #### 49051-8 ####[facility] LABCLIA [id number] [place] [address] [place] MCH (RBC) [Entitic mass]29.2 baKerbtt46.0-34.0[facility] on above:Order Comment: Specimen Type: BLOOD SPECIMENOrdering Facility: [facility] Address:[address] [place] [address] Performed By: #### 21410-6 ####[facility] LABCLIA [id number] [place] [address] [place] MCHC (RBC) [Mass/Vol]31.8 g/uMUpnghc41.5-36.0[facility] on above:Order Comment: Specimen Type: BLOOD SPECIMENOrdering Facility: [facility] Address:[address] [place] [address] Performed By: #### 16767-2 ####[facility] LABIA [id number] [place] [address] [place] MCV (RBC) [Entitic vol]91.8 jGBatyeu84.0-100.0[facility] on above:Order Comment: Specimen Type: BLOOD SPECIMENOrdering Facility: [facility] Address:[address] [place] [address] Performed By: #### 07300-0 ####[facility] LABIA [id number] [place] [address] [place] Nucleated RBC (Bld) [#/Vol]10*3/uLNormal<0.01[facility] on above:Order Comment: Specimen Type: BLOOD SPECIMENOrdering Facility: [facility] Address:[address] [place] [address] Performed By: #### 11950-2 ####[facility] LABIA [id number] [place] [address] [place] Platelet mean volume (Bld) [Entitic vol]9.6 fLNormal9.0-12.7CRegency Hospital [facility] on above:Order Comment: Specimen Type: BLOOD SPECIMENOrdering Facility: [facility] Address:[address] [place], [place] [address]Performed By: #### 23040-7 ####[facility] LABIA [id number] [place] [address] [place] Platelets (Bld) [#/Vol]349 10*3/aHNbkosk086-805XqiypqepiDayton Children's Hospital on above:Order Comment: Specimen Type: BLOOD SPECIMENOrdering Facility: [facility] Address:[address] [place] [address] Performed By: #### 50800-9 ####[facility] LABIA [id number] [address] OF [place] RBC (Bld) [#/Vol]2.67 10*6/uLLow4.20-6.00[facility] on above:Order Comment: Specimen Type: BLOOD SPECIMENOrdering Facility: [facility] Address:[address] [place], [place] [address]Performed By: #### 90005-1 ####[facility] LABIA [id number] [place] [address] [place] AMERICAWBC (Bld) [#/Vol]9.51 10*3/uLNormal3.70-11.00[facility] on above:Order Comment: Specimen Type: BLOOD SPECIMENOrdering Facility: [facility] Address:[address] [place], [place] [address]Performed By: #### 94072-2 ####[facility]PITALIA [id number] [place] [address] [place] AMERICACONSULT PROGon 36-34-3052HJXOMRX PROGNormalLima Memorial HospitalMagnesium SerPl-mCncon 21-49-9816Jltgefjdh [Mass/Vol]1.9 mg/dLNormal1.7-2.3CRegency Hospital [facility] on above:Order Comment: Specimen Type: BLOOD SPECIMENOrdering Facility: [facility] Address:[address] [place] [address], [place] [address]Jfksbdjfh By: #### 26517- 2, , 2776-10 ####[facility] LABCLIA [id number] [address] [address] [place] AMERICAPhosphate SerPl-mCnc on 70-22-5929Becnmnewq [Mass/Vol]2.6 mg/dLLow2.7-4.8ClevelUNC Medical Center Comment on above:Order Comment: Specimen Type: BLOOD SPECIMENOrdering Facility: [facility] Address:[address] [place], [place] [address]J[place] [address] Performed By: #### 41145-6, , 2776-10 ####[facility] LABCLIA [id number] VILLE [address] [place] AMERICATHERAPY NTon 85-47-6068LTBGZER NTNormalClevelUNC Medical CenterBasic metabolic 2000 panelon 99-82-6490Bzyzd gap [Moles/Vol]12 mmol/LNormal8-15 [facility] HospitalComment on above:Order Comment: Specimen Type: BLOOD SPECIMENOrdering Facility: [facility] Address:[facility] TERESAJhonathan LOPEZBRITTANY [place] [address]Performed By: #### 72199-7, 2776-10, ####[facility] LABCLIA [id number] VILLE [address] [place] AMERICACalcium [Mass/Vol]8.8 mg/dLNormal8.5-10.2ClevelUNC Medical CenterComment on above:Order Comment: Specimen Type: BLOOD SPECIMENOrdering Facility: [facility] Address:[address] [place], [place] [address]Jhonathan AZARNATALIE [place] [address]Performed By: #### 20881-9, 2776-10, ####[facility] LABCLIA [id number] [address] [address] [place] AMERICAChloride [Moles/Vol]100 mmol/EQhsrwu09-574 [facility] on above:Order Comment: Specimen Type: BLOOD SPECIMENOrdering Facility: [facility] Address:[address] [place], [place] [address]Performed By: #### 86288-6, 2776-10, ####[facility] LABIA [id number] VILLE [address] [place] AMERICACO2 [Moles/Vol]29 mmol/TQgxohm81-54GdvrprmvfDayton Children's Hospital on above:Order Comment: Specimen Type: BLOOD SPECIMENOrdering Facility: [facility] Address:[address] [place], [place] [address]Performed By: #### 75673-4, 2776-10, ####[facility] LABIA [id number], [place] [address] [place] AMERICACreatinine [Mass/Vol]0.80 mg/dLNormal0.73-1.22 [facility] on above:Order Comment: Specimen Type: BLOOD SPECIMENOrdering Facility: [facility] Address:[address] [place], [place] [address]Performed By: #### 90030-9, 2776-10, ####[facility] LABIA [id number], [place] [address] [place] AMERICACreatinine and Glomerular filtration rate.predicted panel (S/P/Bld)105 mL/min/1.73m???Normal>=60[facility] on above:Order Comment: Specimen Type: BLOOD SPECIMENOrdering Facility: [facility] Address:[address] [place], [place] [address]Result Comment: Estimated Glomerular Filtration Rate (eGFR) is calculated using the 2020 CKD-EPI creatinine equation. This equation utilizes serum creatinine, sex, and age as parameters. The creatinine assay has traceable calibration to isotope dilution-mass spectrometry. Refer to KDIGO guidelines for clinical interpretation. In patients with unstable renal function, e.g. those with acute kidney injury, the eGFR may not accurately reflect actual GFR. Performed By: #### 09443-4, 27704-21, ####[facility] LABCLIA [id number] [address] [address] [place] AMERICAGlucose [Mass/Vol]190 mg/cJLquz96-13CjgljsnxeDayton Children's Hospital on above:Order Comment: Specimen Type: BLOOD SPECIMENOrdering Facility: [facility] Address:[address] [place], [place] [address]Result Comment: The [place] Diabetes Association (ADA) provides guidance for cutoff [...] unequivocal hyperglycemia, results should be confirmed by repeattesting. In a patient with classic symptoms of hyperglycemia or hyperglycemic crisis, random plasmaglucose results greater than or equal to 200 mg/dL meet the criteria for diagnosis of diabetes.Reference: Standards of Medical Care in Diabetes 2016, [place] Diabetes Association. Diabetes Care. 2016.39(Suppl 1).Performed By: #### 53077-6, 2776-10, ####[facility] LABIA [id number] VIL[place] [address] [place] AMERICAPotassium [Moles/Vol]4.0 mmol/LNormal3.7-5.1 [facility] on above:Order Comment: Specimen Type: BLOOD SPECIMENOrdering Facility: [facility] Address:[address] [place] [id number] By: #### 12038-5, 2777, ####[facility] LABIA [id number] VILLE [address] [place] AMERICASodium [Moles/Vol]141 mmol/UZipala221-722IlyrbxdwtDayton Children's Hospital on above:Order Comment: Specimen Type: BLOOD SPECIMENOrdering Facility: [facility] Address:[address] [place] [address]Clpirzpni By: #### 86218-4, 277-1, ####[facility] LABCLIA [id number] [address] [place] AMERICAUrea nitrogen [Mass/Vol]12 mg/dLNormal9-24 [facility] HospitalComment on above:Order Comment: Specimen Type: BLOOD SPECIMENOrdering Facility: [facility] Address:[address] [place], [place] [address]Performed By: #### 97602-0, 2777-, ####[facility] LABIA [id number] [address] [place] [facility] HOSPITALCBC panel Auto (Bld)on 14-20-0943Zhvdqbfnhst distribution width (RBC) [Ratio]13.1 %Yrghfy26.5-15.0[facility] Comment on above:Order Comment: Specimen Type: BLOOD SPECIMENOrdering Facility: [facility] Address:[address] [place] [address] Performed By: #### 75856-8 ####[facility] LABIA [id number] [place] [address] [place] [facility] Hematocrit (Bld) [Volume fraction]25.9 %Low39.0-51.0[facility] Comment on above:Order Comment: Specimen Type: BLOOD SPECIMENOrdering Facility: [facility] Address:[address] [place] [address] Performed By: #### 95291-2 ####[facility] LABIA [id number] [place] [id number] [place] Hemoglobin (Bld) [Mass/Vol]8.3 g/dLLow13.0-17.0[facility] HospitalComment on above:Order Comment: Specimen Type: BLOOD SPECIMENOrdering Facility: [facility] Address:[address] [place] [address] Performed By: #### 01806-8 ####[facility] LABIA [id number] [place] [address] [place] MCH (RBC) [Entitic mass]29.4 elAshyip95.0-34.0[facility] on above:Order Comment: Specimen Type: BLOOD SPECIMENOrdering Facility: [facility] Address:[address] [place] [address] Performed By: #### 34346-2 ####[facility] [id number] [place] [address] [place] MCHC (RBC) [Mass/Vol]32.0 g/tSXgntol20.5-36.0[facility] on above:Order Comment: Specimen Type: BLOOD SPECIMENOrdering Facility: [facility] Address:[address] [place] [address] Performed By: #### 56140-8 ####[facility] [id number] [place] [address] [place] MCV (RBC) [Entitic vol]91.8 mAAixvgd75.0-100.0[facility] on above:Order Comment: Specimen Type: BLOOD SPECIMENOrdering Facility: [facility] Address:[address] [place] [address] Performed By: #### 78534-3 ####[facility] [id number] [place] [address] [place] Nucleated RBC (Bld) [#/Vol]10*3/uLNormal<0.01[facility] on above:Order Comment: Specimen Type: BLOOD SPECIMENOrdering Facility: [facility] Address:[address] [place] [address] Performed By: #### 46643-0 ####[facility] [id number] [place] [address] [place] Platelet mean volume (Bld) [Entitic vol]9.6 fLNormal9.0-12.7CRegency Hospital [facility] on above:Order Comment: Specimen Type: BLOOD SPECIMENOrdering Facility: [facility] Address:[address] [place], [place] [address]Performed By: #### 75952-8 ####[facility] LABIA [id number] [place] [address] [place] Platelets (Bld) [#/Vol]277 10*3/uLIobnqd258-442QewhdvjehDayton Children's Hospital on above:Order Comment: Specimen Type: BLOOD SPECIMENOrdering Facility: [facility] Address:[address] [place] [address] Performed By: #### 36803-6 ####[facility] LABIA [id number] [place] [address] [place] RBC (Bld) [#/Vol]2.82 10*6/uLLow4.20-6.00[facility] on above:Order Comment: Specimen Type: BLOOD SPECIMENOrdering Facility: [facility] Address:[address] [place], [place] [address]Performed By: #### 95906-8 ####[facility] LABIA [id number] [place] [address] [place] AMERICAWBC (Bld) [#/Vol]14.25 10*3/uLHigh3.70-11.00[facility] on above:Order Comment: Specimen Type: BLOOD SPECIMENOrdering Facility: [facility] Address:[address] [place], [place] [address]Performed By: #### 53295-9 ####[facility] LABIA [id number] [place] [address] [place] AMERICACONSULT PROGon 28-96-8418ZROVHHD PROGNormalLima Memorial HospitalMagnesium SerPl-mCncon 47-82-8601Wgehpbqcr [Mass/Vol]2.0 mg/dLNormal1.7-2.3ClevelMercy Memorial Hospital on above:Order Comment: Specimen Type: BLOOD SPECIMENOrdering Facility: [facility] Address:[address] [place], [place] [address]Performed By: #### 05320- 2, 2777-1, ####[facility] LABCLIA [id number] STATES [facility] COMPRE[facility]ENSIVE CANCER CENTERPhosphate SerPl-mCnc on 00-51-7397Dceshlunu [Mass/Vol]2.8 mg/dLNormal2.7-4.8ClevelMercy Memorial Hospital on above:Order Comment: Specimen Type: BLOOD SPECIMENOrdering Facility: [facility] Address:[address] [place], [place] [address]Performed By: #### 26865-1, 2777-1, ####[facility] LABIA [id number] STATES [facility] peptide SerPl-mCncon 08-30-2024 peptide [Mass/Vol]0.2 ng/mL Low1.1-4.4ClevelMercy Memorial Hospital on above:Order Comment: Specimen Type: BLOOD SPECIMENOrdering Facility: [facility] Address:[address] [place], [place] [address]Performed By: #### 1986-9 ####[facility] LABIA [id number] [address] STATES OF [facility] W Auto Differential panel (Bld)on 08-30-2024 Basophils (Bld) [#/Vol]0.05 10*3/uLNormal<0.11CRegency Hospital [place] on above:Order Comment: Specimen Type: BLOOD SPECIMENOrdering Facility: [facility] Address:[address] [place] [address] Performed By: #### 44863-1 ####[facility] LABIA [id number] [place] [address] [place] Basophils/100 WBC (Bld)0.3 %NormalDayton Children's Hospital on above: Order Comment: Specimen Type: BLOOD SPECIMENOrdering Facility: [facility] Address:[address] [place], [place] [address]Performed By: #### 20030- 8 ####[facility] LABCLIA [id number] [place] [address] [place] AMERICADifferential cell count method Nom (Bld)AutoNormalClevelMercy Memorial Hospital on above:Order Comment: Specimen Type: BLOOD SPECIMENOrdering Facility: [facility] Address:[address] [place], [place] [address]Performed By: #### 49152-8 ####[facility] LABCLIA [id number] [place] [address] [place] AMERICAEosinophils (Bld) [#/Vol]0.05 10*3/uLNormal<0.46[facility] on above:Order Comment: Specimen Type: BLOOD SPECIMENOrdering Facility: [facility] Address:[address] [place], [place] [address]Performed By: #### 07281-6 ####[facility] LABCLIA [id number] [place] [address] [place] AMERICAEosinophils/100 WBC (Bld)0.3 % NormalDayton Children's Hospital on above:Order Comment: Specimen Type: BLOOD SPECIMENOrdering Facility: [facility] Address:[address] [place], [place] [address]Performed By: #### 72953-6 ####[facility] LABCLIA [id number] [place] [address] [place] AMERICAErythrocyte distribution width (RBC) [Ratio]13.1 %Normal 11.5-15.0[facility] on above:Order Comment: Specimen Type: BLOOD SPECIMENOrdering Facility: [facility] Address:[address] [place], [place] [address]Performed By: #### 16381-2 ####[facility] LABCLIA [id number] [place] [address] [place] AMERICAHematocrit (Bld) [Volume fraction]21.9 %Low39.0-51.0 [facility] on above:Order Comment: Specimen Type: BLOOD SPECIMENOrdering Facility: [facility] Address:[address] [place], [place] [address]Performed By: #### 27355-3 ####[facility] LABIA [id number] [place] [address] [place] AMERICAHemoglobin (Bld) [Mass/Vol]7.2 g/dLLow13.0-17.0[facility] Comment on above:Order Comment: Specimen Type: BLOOD SPECIMENOrdering Facility: [facility] Address:[address] [place] [address] Performed By: #### 00398-9 ####[facility] LABIA [id number] [place] [address] [place] Immature granulocytes (Bld) [#/Vol]0.06 10*3/uLNormal<0.10[facility] on above:Order Comment: Specimen Type: BLOOD SPECIMENOrdering Facility: [facility] Address:[address] [place], [place] [address]Performed By: #### 16268-3 ####[facility] LABCLIA [id number] [place] [address] [place] Immature granulocytes/100 WBC (Bld)0.4 %NormalDayton Children's Hospital on above:Order Comment: Specimen Type: BLOOD SPECIMENOrdering Facility: [facility] Address:[address] [place] [address] Performed By: #### 88165-3 ####[facility] LABCLIA [id number] [place] [address] [place] Lymphocytes (Bld) [#/Vol]1.59 10*3/uLNormal1.00-4.00[facility] Comment on above:Order Comment: Specimen Type: BLOOD SPECIMENOrdering Facility: [facility] Address:[address] [place] [address] Performed By: #### 53600-1 ####[facility] LABCLIA [id number] [place] [address] [place] Lymphocytes/100 WBC (Bld)9.8 %NormalDayton Children's Hospital on above: Order Comment: Specimen Type: BLOOD SPECIMENOrdering Facility: [facility] Address:[address] [place], [place] [address]Performed By: #### [id number]- 8 ####[facility] LABCLIA [id number] [address] SMITH STREETMCH (RBC) [Entitic mass]29.0 pg Fedcdh84.0-34.0[facility] Hospitalment on above:Order Comment: Specimen Type: BLOOD SPECIMENOrdering Facility: [facility] Address:[address] [place], [place] [address]Performed By: #### [id number] ####[facility] LABCLIA [id number] [address] [facility]PITALMCHC (RBC) [Mass/Vol]32.9 g/dL Avvoln44.5-36.0[facility] on above:Order Comment: Specimen Type: BLOOD SPECIMENOrdering Facility: [facility] Address:[address] [place], [place] [address]Performed By: #### 62100-2 ####[facility] LABCLIA [id number] [address] SM[address] STREETMCV (RBC) [Entitic vol]88.3 fL Tcxjme08.0-100.0[facility] on above:Order Comment: Specimen Type: BLOOD SPECIMENOrdering Facility: [facility] Address:[address] [place], [place] [address]Performed By: #### 70025-4 ####[facility] LABCLIA [id number] [place] [address] [place] AMERICAMonocytes (Bld) [#/Vol]1.67 10*3/uLHigh<0.87[facility] on above:Order Comment: Specimen Type: BLOOD SPECIMENOrdering Facility: [facility] Address:[address] [place], [place] [address]Performed By: #### 65482-5 ####[facility] LABCLIA [id number] [place] [address] [place] AMERICAMonocytes/100 WBC (Bld)10.3 % NormalDayton Children's Hospital on above:Order Comment: Specimen Type: BLOOD SPECIMENOrdering Facility: [facility] Address:[address] [place], [place] [address]Performed By: #### 05277-6 ####[facility] LABCLIA [id number] [place] [address] [place] AMERICANeutrophils (Bld) [#/Vol]12.86 10*3/uLHigh1.45-7.50[facility] on above:Order Comment: Specimen Type: BLOOD SPECIMENOrdering Facility: [facility] Address:[address] [place], [place] [address]Performed By: #### 20060-4 ####[facility] LABCLIA [id number] [place] [address] [place] AMERICANeutrophils/100 WBC (Bld)78.9 %NormalDayton Children's Hospital on above:Order Comment: Specimen Type: BLOOD SPECIMENOrdering Facility: [facility] Address:[address] [place] [address] Performed By: #### 45360-9 ####[facility] LABCLIA [id number] [place] [address] [place] Nucleated RBC (Bld) [#/Vol]10*3/uLNormal<0.01[facility] on above:Order Comment: Specimen Type: BLOOD SPECIMENOrdering Facility: [facility] Address:[address] [place] [address] Performed By: #### 58067-6 ####[facility] LABIA [id number] [place] [address] [place] Nucleated RBC/100 WBC (Bld) [Ratio]0.0 /100 WBCNormalCTriHealth [facility]da [facility] Comment on above:Order Comment: Specimen Type: BLOOD SPECIMENOrdering Facility: [facility] Address:[address] [place] [address] Performed By: #### 73291-5 ####[facility] [id number] [place] [address] [place] Platelet mean volume (Bld) [Entitic vol]9.7 fLNormal9.0-12.7CRegency Hospital [facility] on above:Order Comment: Specimen Type: BLOOD SPECIMENOrdering Facility: [facility] Address:[address] [place], [place] [address]Performed By: #### 19375-8 ####[facility] [id number] [place] [address] [place] Platelets (Bld) [#/Vol]207 10*3/dEFnqfnu644-686FtxoupnufDayton [facility]'s Hospital on above:Order Comment: Specimen Type: BLOOD SPECIMENOrdering Facility: [facility] Address:[address] [place] [address] Performed By: #### 99028-3 ####[facility] LABIA [id number] [place] [address] [place] RBC (Bld) [#/Vol]2.48 10*6/uLLow4.20-6.00[facility] on above:Order Comment: Specimen Type: BLOOD SPECIMENOrdering Facility: [facility] Address:[address] [place], [place] [address]Performed By: #### 04086-8 ####[facility] LABCLIA [id number] [place] [address] [place] AMERICAWBC (Bld) [#/Vol]16.28 10*3/uLHigh3.70-11.00[facility] on above:Order Comment: Specimen Type: BLOOD SPECIMENOrdering Facility: [facility] Address:[address] [place], [place] [address]Performed By: #### 87373-1 ####[facility] LABCLIA [id number] [place] [address] [place] AMERICACBC panel Auto (Bld)on 08-30-2024 Erythrocyte distribution width (RBC) [Ratio]13.1 %Uxdrqk91.5-15.0[facility] on above:Order Comment: Specimen Type: BLOOD SPECIMENOrdering Facility: [facility] Address:[address] [place], [place] [address]Performed By: #### 74735-7 ####[facility] LABIA [id number] [place] [address] [place] AMERICAHematocrit (Bld) [Volume fraction]26.8 %Low39.0-51.0[facility] on above:Order Comment: Specimen Type: BLOOD SPECIMENOrdering Facility: [facility] Address:[address] [place], [place] [address]Performed By: #### 47528-3 ####[facility] LABCLIA [id number] [place] [address] [place] Hemoglobin (Bld) [Mass/Vol]8.9 g/dLLow13.0-17.0[facility] on above:Order Comment: Specimen Type: BLOOD SPECIMENOrdering Facility: [facility] Address:[address] [place] [address] Performed By: #### 37004-1 ####[facility] LABCLIA [id number] [place] [address] [place] MCH (RBC) [Entitic mass]29.6 vpBdallj24.0-34.0[facility] on above:Order Comment: Specimen Type: BLOOD SPECIMENOrdering Facility: [facility] Address:[address] [place] [address] Performed By: #### 01885-5 ####[facility] LABIA [id number] [place] [address] [place] MCHC (RBC) [Mass/Vol]33.2 g/kMXdvqxx58.5-36.0[facility] on above:Order Comment: Specimen Type: BLOOD SPECIMENOrdering Facility: [facility] Address:[address] [place] [address] Performed By: #### 35939-0 ####[facility] LABIA [id number] [place] [address] [place] MCV (RBC) [Entitic vol]89.0 mEYddwro13.0-100.0[facility] on above:Order Comment: Specimen Type: BLOOD SPECIMENOrdering Facility: [facility] Address:[address] [place] [address] Performed By: #### 76085-6 ####[facility] LABCLIA [id number] [place] [address] [place] Nucleated RBC (Bld) [#/Vol]10*3/uLNormal<0.01[facility] on above:Order Comment: Specimen Type: BLOOD SPECIMENOrdering Facility: [facility] Address:[address] [place] [address] Performed By: #### 20142-8 ####[facility] LABCLIA [id number] [place] [address] [place] Platelet mean volume (Bld) [Entitic vol]10.6 fLNormal9.0-12.7CRegency Hospital [facility] on above:Order Comment: Specimen Type: BLOOD SPECIMENOrdering Facility: [facility] Address:[address] [place], [place] [address]Performed By: #### 39097-2 ####[facility] LABIA [id number] [place] [address] [place] Platelets (Bld) [#/Vol]223 10*3/lQFspvpn653-921EmflyrfriDayton [facility]'s Hospital on above:Order Comment: Specimen Type: BLOOD SPECIMENOrdering Facility: [facility] Address:[address] [place] [address] Performed By: #### 81623-7 ####[facility] [id number] [place] [address] [place] RBC (Bld) [#/Vol]3.01 10*6/uLLow4.20-6.00[facility] on above:Order Comment: Specimen Type: BLOOD SPECIMENOrdering Facility: [facility] Address:[address] [place], [place] [address]Performed By: #### 47456-7 ####[facility] [id number] [place] [address] [place] AMERICAWBC (Bld) [#/Vol]17.79 10*3/uLHigh3.70-11.00[facility] on above:Order Comment: Specimen Type: BLOOD SPECIMENOrdering Facility: [facility] Address:[address] [place], [place] [address]Performed By: #### 77345-2 ####[facility] [id number] [place] [address] [place] AMERICAErythrocyte distribution width (RBC) [Ratio]12.9 %Jkdszx93.5-15.0[facility] on above: Order Comment: Specimen Type: BLOOD SPECIMENOrdering Facility: [facility] Address:[address] [place], [place] [address]Performed By: #### 82303- 2 ####[facility] LABCLIA [id number] [place] [address] [place] AMERICAHematocrit (Bld) [Volume fraction]26.1 %Low39.0-51.0[facility] on above:Order Comment: Specimen Type: BLOOD SPECIMENOrdering Facility: [facility] Address:[address] [place], [place] [address]Performed By: #### 04455- 2 ####[facility] LABCLIA [id number] [address] STATES OF AMERICAHemoglobin (Bld) [Mass/Vol]8.8 g/dLLow13.0-17.0[facility] on above:Order Comment: Specimen Type: BLOOD SPECIMENOrdering Facility: [facility] Address:[address] [place], [place] [address]Performed By: #### 73403-3 ####[facility] LABCLIA [id number] [place] [address] [place] AMERICAMCH (RBC) [Entitic mass]29.7 pg Efkrem42.0-34.0[facility] on above:Order Comment: Specimen Type: BLOOD SPECIMENOrdering Facility: [facility] Address:[address] [place], [place] [address]Performed By: #### 78360-5 ####[facility] LABCLIA [id number] [place] [address] [place] AMERICAMCHC (RBC) [Mass/Vol]33.7 g/dL Dhvkhv65.5-36.0[facility] on above:Order Comment: Specimen Type: BLOOD SPECIMENOrdering Facility: [facility] Address:[address] [place], [place] [address]Performed By: #### 99639-5 ####[facility] LABIA [id number] [place] [address] [place] AMERICAMCV (RBC) [Entitic vol]88.2 fL Dqldjg43.0-100.0[facility] on above:Order Comment: Specimen Type: BLOOD SPECIMENOrdering Facility: [facility] Address:[address] [place], [place] [address]Performed By: #### 42684-1 ####[facility] LABIA [id number] [place] [address] [place] AMERICANucleated RBC (Bld) [#/Vol] 10*3/uLNormal<0.01[facility] on above:Order Comment: Specimen Type: BLOOD SPECIMENOrdering Facility: [facility] Address:[address] [place], [place] [address]Performed By: #### 67700-8 ####[facility] LABIA [id number] [place] [address] [place] AMERICAPlatelet mean volume (Bld) [Entitic vol]9.2 fLNormal9.0-12.7CRegency Hospital [facility] on above: Order Comment: Specimen Type: BLOOD SPECIMENOrdering Facility: [facility] Address:[address] [place], [place] [address]Performed By: #### 36732- 2 ####[facility] LABIA [id number] [place] [address] [place] AMERICAPlatelets (Bld) [#/Vol]194 10*3/bLSmaycv323-565TwstuuykzDayton [facility]'s Hospital on above:Order Comment: Specimen Type: BLOOD SPECIMENOrdering Facility: [facility] Address:[address] [place], [place] [address]Performed By: #### 11770-8 ####[facility] LABCLIA [id number] [place] [address] [place] AMERICARBC (Bld) [#/Vol]2.96 10*6/uLLow 4.20-6.00[facility] on above:Order Comment: Specimen Type: BLOOD SPECIMENOrdering Facility: [facility] Address:[address] [place], [place] [address]Performed By: #### 90048-0 ####[facility] LABIA [id number] [place] [address] [place] AMERICAWBC (Bld) [#/Vol]17.35 10*3/uLHigh3.70-11.00[facility] on above:Order Comment: Specimen Type: BLOOD SPECIMENOrdering Facility: [facility] Address:[address] [place], [place] [address]Performed By: #### 47087-8 ####[facility]ITALIA [id number] [place] [address] [place] AMERICAErythrocyte distribution width (RBC) [Ratio]12.9 %Waepjf55.5-15.0 [facility] on above:Order Comment: Specimen Type: BLOOD SPECIMENOrdering Facility: [facility] Address:[address] [place], [place] [address]Performed By: #### 89427-3 ####[facility] LABIA [id number] [address] STATES OF [facility] HOSPITALHematocrit (Bld) [Volume fraction]22.0 %Low39.0-51.0[facility] on above:Order Comment: Specimen Type: BLOOD SPECIMENOrdering Facility: [facility] Address:[address] [place], [place] [address]Performed By: #### 08411-3 ####[facility] LABWH[facility] [id number] [place] [address] [place] Hemoglobin (Bld) [Mass/Vol]7.1 g/dLLow13.0-17.0[facility] on above:Order Comment: Specimen Type: BLOOD SPECIMENOrdering Facility: [facility] Address:[address] [place] [address] Performed By: #### 56946-9 ####[facility] LABIA [id number] [place] [address] [place] MCH (RBC) [Entitic mass]29.0 ssVdigrg31.0-34.0[facility] on above:Order Comment: Specimen Type: BLOOD SPECIMENOrdering Facility: [facility] Address:[address] [place] [address] Performed By: #### 98340-3 ####[facility] LABIA [id number] [place] [address] [place] MCHC (RBC) [Mass/Vol]32.3 g/cHOfccuc71.5-36.0[facility] on above:Order Comment: Specimen Type: BLOOD SPECIMENOrdering Facility: [facility] Address:[address] [place] [address] Performed By: #### 69732-0 ####[facility] LABIA [id number] [place] [address] [place] MCV (RBC) [Entitic vol]89.8 yOPcmpll54.0-100.0[facility] on above:Order Comment: Specimen Type: BLOOD SPECIMENOrdering Facility: [facility] Address:[address] [place] [address] Performed By: #### 49030-7 ####[facility] LABIA [id number] [place] [address] [place] Nucleated RBC (Bld) [#/Vol]10*3/uLNormal<0.01[facility] on above:Order Comment: Specimen Type: BLOOD SPECIMENOrdering Facility: [facility] Address:[address] [place] [address] Performed By: #### 36978-6 ####[facility] LABIA [id number] [place] [address] [place] Platelet mean volume (Bld) [Entitic vol]9.5 fLNormal9.0-12.7CRegency Hospital [facility] on above:Order Comment: Specimen Type: BLOOD SPECIMENOrdering Facility: [facility] Address:[address] [place], [place] [address]Performed By: #### 97382-3 ####[facility] LABIA [id number] [place] [address] [place] Platelets (Bld) [#/Vol]211 10*3/nZGkevar206-272NjhnyftztDay[facility] on above:Order Comment: Specimen Type: BLOOD SPECIMENOrdering Facility: [facility] Address:[address] [place] [address] Performed By: #### 40212-7 ####[facility] LABIA [id number] [place] [address] [place] RBC (Bld) [#/Vol]2.45 10*6/uLLow4.20-6.00[facility] on above:Order Comment: Specimen Type: BLOOD SPECIMENOrdering Facility: [facility] Address:[address] [place], [place] [address]Performed By: #### 69915-6 ####[facility] LABIA [id number] [place] [address] [place] AMERICAWBC (Bld) [#/Vol]17.80 10*3/uLHigh3.70-11.00[facility] on above:Order Comment: Specimen Type: BLOOD SPECIMENOrdering Facility: [facility] Address:[address] [place], [place] [address]Performed By: #### 08071-9 ####[facility] LABCLIA [id number] [place] [address] [place] AMERICACONSULT PROGon 60-84-5374SRMEAZR PROGNormalLima Memorial HospitalCRP SerPl-mCncon 27-72-4505YSS [Mass/Vol] 21.6 mg/dLHigh<0.9ClevelMercy Memorial Hospital on above:Order Comment: Specimen Type: BLOOD SPECIMENOrdering Facility: [facility] Address:[address] [place], [place] [address]Performed By: #### 51923-5, 2776-10, , 1988-02 ####[facility] LABCLIA [id number] [place] [address] [place] AMERICAComprehensive metabolic 2000 panelon 89-17-0248Keeignm [Mass/Vol]3.6 g/dLLow3.9-4.9ClevelMercy Memorial Hospital on above:Order Comment: Specimen Type: BLOOD SPECIMENOrdering Facility: [facility] Address:[address] [place], [place] [address]Performed By: #### 95706-1, 2776-10, , 1988-02 ####[facility] LABCLIA [id number] [place] [address] [place] AMERICAALP [Catalytic activity/Vol]63 U/GKpzaod62-258KdohtizkcDayton [facility]'s Hospital on above:Order Comment: Specimen Type: BLOOD SPECIMENOrdering Facility: [facility] Address:[address] [place], [place] [address]Result Comment: Results may be falsely decreased due to interference from hemolysis. Suggest reorder as clinically indicated.Performed By: #### 12413-5, 2776-10, , 1988-02 ####[facility] LABCLIA [id number] [place] [address] [place] AMERICAALT [Catalytic activity/Vol]80 U/XImtd03-18Seohdijuc Clinic ClevelandComment on above:Order Comment: Specimen Type: BLOOD SPECIMENOrdering Facility: [facility] Address:[address] [place], [place] [address]Result Comment: Results may be falsely increased due to interference from hemolysis. Suggest reorder as clinically indicated. Performed By: #### 68954-1, 277-, , 1988-02 ####[facility] LABCLIA [id number] [place] [address] [place] AMERICAAnion gap [Moles/Vol]13 mmol/LNormal8-15[facility] on above:Order Comment: Specimen Type: BLOOD SPECIMENOrdering Facility: [facility] Address:[address] [place], [place] [address]Performed By: #### 43215-6, 27704-21, , 1988-02 ####[facility] LABCLIA [id number] [place] [address] [place] AMERICAAST [Catalytic activity/Vol]77 U/FLuye75-83WrwvamvtcDayton Children's Hospital on above:Order Comment: Specimen Type: BLOOD SPECIMENOrdering Facility: [facility] Address:[address] [place], [place] [address]Result Comment: Results may be falsely increased due to interference from hemolysis. Suggest reorder as clinically indicated.Performed By: #### 36802-5, 27704-21, , 1988-02 ####[facility] LABCLIA [id number] [place] [address] [facility] OF AMERICABilirubin [Mass/Vol]0.4 mg/dLNormal0.2-1.3CTriHealth [facility] Comment on above:Order Comment: Specimen Type: BLOOD SPECIMENOrdering Facility: [facility] Address:[address] [place] [address] Performed By: #### 71307-7, 27704-21, , 1988-02 ####[facility] LABCLIA [id number] [place] [address] [place] AMERICACalcium [Mass/Vol]8.5 mg/dLNormal8.5-10.2CRegency Hospital [place] on above:Order Comment: Specimen Type: BLOOD SPECIMENOrdering Facility: [facility] Address:[address] [place], [place] [address]Performed By: #### 69545-4, 27704-21, , 1988-02 ####[facility] LABCLIA [id number] [place] [address] [place] AMERICAChloride [Moles/Vol]99 mmol/SRilpou94-424IftmrumduDayton Children's Hospital on above:Order Comment: Specimen Type: BLOOD SPECIMENOrdering Facility: [facility] Address:[address] [place], [place] [address]Performed By: #### 26568-9, 27704-21, , 1988-02 ####[facility] LABIA [id number] [place] [address] [place] AMERICACO2 [Moles/Vol]25 mmol/LNormal 22-30[facility] on above:Order Comment: Specimen Type: BLOOD SPECIMENOrdering Facility: [facility] Address:[address] [place], [place] [address]Performed By: #### 48668-5, 27704-21, , 1988-02 ####[facility] LABCLIA [id number] [place] [address] [place] AMERICACreatinine [Mass/Vol]0.79 mg/dL Normal0.73-1.22[facility] on above:Order Comment: Specimen Type: BLOOD SPECIMENOrdering Facility: [facility] Address:[address] [place], [place] [address]Performed By: #### 95946-0, 27704-21, , 1988-02 ####[facility] LABCLIA [id number] [place] [address] [place] AMERICACreatinine and Glomerular filtration rate.predicted panel (S/P/Bld)106 mL/min/1.73m???Normal >=60[facility] on above:Order Comment: Specimen Type: BLOOD SPECIMENOrdering Facility: [facility] Address:[address] [place], [place] [address]Result Comment: Estimated Glomerular Filtration Rate (eGFR) is calculated using the 2020 CKD-EPI creatinine equation. This equation utilizes serum creatinine, sex, and age as parameters. The creatinine assay has traceable calibration to isotope dilution-mass spectrometry. Refer to KDIGO guidelines for clinical interpretation. In patients with unstable renal function, e.g. those with acute kidney injury, the eGFR may not accurately reflect actual GFR.Performed By: #### 97089-0, 277-, , 1988-02 ####[facility] LABCLIA [id number] [place] [address] [place] AMERICAGlucose [Mass/Vol]203 mg/dLHigh 74-99[facility] on above:Order Comment: Specimen Type: BLOOD SPECIMENOrdering Facility: [facility] Address:[address] [place], [place] [address]Result Comment: The [place] Diabetes Association (ADA) provides guidance for cutoff [...] unequivocal hyperglycemia, results should be confirmed by repeattesting. In a patient with classic symptoms of hyperglycemia or hyperglycemic crisis, random plasmaglucose results greater than or equal to 200 mg/dL meet the criteria for diagnosis of diabetes.Reference: Standards of Medical Care in Diabetes 2016, [place] [employer]. Diabetes Care. 2016.39(Suppl 1).Performed By: #### 81961- 8, 2777-, , 1988-02 ####[facility] LABCLIA [id number] [place] [id number] [place] Potassium [Moles/Vol]NormalDayton Children's Hospital on above:Order Comment: Specimen Type: BLOOD SPECIMENOrdering Facility: [facility] Address:[address] [place], [place] [address]Result Comment: Unable to assay due to interference from hemolysis. Suggest reorder as clinically in dicated.Performed By: #### 54591-6, 27704-21, , 1988-02 ####[facility] LABCLIA [id number] [place] [address] [place] AMERICAProtein [Mass/Vol]5.9 g/dLLow6.3-8.0[facility] on above:Order Comment: Specimen Type: BLOOD SPECIMENOrdering Facility: [facility] Address:[address] [place], [place] [address]Performed By: #### 20977-1, 2776-10, , 1988-02 ####[facility] LABCLIA [id number] [place] [address] [place] AMERICASodium [Moles/Vol]137 mmol/DOipfbp578-755FeopfqjnjDayton Children's Hospital on above:Order Comment: Specimen Type: BLOOD SPECIMENOrdering Facility: [facility] Address:[address] [place], [place] [address]Performed By: #### 52305-8, 2776-10, , 1988-02 ####[facility] LABCLIA [id number] [place] [id number] [place] AMERICAUrea nitrogen [Mass/Vol]9 mg/dL Normal9-24[facility] on above:Order Comment: Specimen Type: BLOOD SPECIMENOrdering Facility: [facility] Address:[address] [place], [place] [address]Performed By: #### 39969-4, 2776-10, , 1988-02 ####[facility] LABCLIA [id number] [place] [address] [place] AMERICAAlbumin [Mass/Vol]3.9 g/dLNormal 3.9-4.9CRegency Hospital [facility] on above:Order Comment: Specimen Type: BLOOD SPECIMENOrdering Facility: [facility] Address:[address] [place], [place] [address]Performed By: #### 87568-8, 29281-4, 2776-10 ####[facility] LABCLIA [id number] [address] [place] AMERICAALP [Catalytic activity/Vol]56 U/HGsbthb43-844UhqliwxrdDayton Children's Hospital on above:Order Comment: Specimen Type: BLOOD SPECIMENOrdering Facility: [facility] Address:[address] [place], [place] [address]Performed By: #### 45873-6, 29425-0, 2776-10 ####[facility] LABCLIA [id number] [address] [place] AMERICAALT [Catalytic activity/Vol]98 U/XBtcp51-89GetdnpixfDayton Children's Hospital on above:Order Comment: Specimen Type: BLOOD SPECIMENOrdering Facility: [facility] Address:[address] [place] [address]Performed By: #### 26710-4, 29769-6, 2776-10 ####[facility] LABCLIA [id number] VIL[place] [id number] [place] OF AMERICAAnion gap [Moles/Vol]9 mmol/L Normal8-15[facility] on above:Order Comment: Specimen Type: BLOOD SPECIMENOrdering Facility: [facility] Address:[address] [place], [place] [address]Performed By: #### 02786-9, 08598-7, 2776- ####[facility] LABCLIA [id number] [place] [id number] [place] AMERICAAST [Catalytic activity/Vol]82 U/UJgih93-40LcyeksduwDayton [facility]'s Hospital on above:Order Comment: Specimen Type: BLOOD SPECIMENOrdering Facility: [facility] Address:[address] [place], [place] [address]Performed By: #### 96514-6, 60854-2, 2776-10 ####[facility] LABCLIA [id number] [address] [place] AMERICABilirubin [Mass/Vol]0.3 mg/dL Normal0.2-1.3CRegency Hospital [facility] on above:Order Comment: Specimen Type: BLOOD SPECIMENOrdering Facility: [facility] Address:[address] [place], [place] [address]Performed By: #### 94660-4, , 2776-10 ####[facility] LABCLIA [id number] [place] [address] [place] AMERICACalcium [Mass/Vol]8.2 mg/dLLow 8.5-10.2CRegency Hospital [facility] on above:Order Comment: Specimen Type: BLOOD SPECIMENOrdering Facility: [facility] Address:[address] [place], [place] [address]Performed By: #### 77744-0, , 2776-10 ####[facility] LABCLIA [id number] [place] [address] [place] AMERICAChloride [Moles/Vol]101 mmol/L Skmylf68-472UppnbixdpDayton [facility]'s Hospital on above:Order Comment: Specimen Type: BLOOD SPECIMENOrdering Facility: [facility] Address:[address] [place], [place] [address]Performed By: #### 45733-0, , 2776-10 ####[facility] LABCLIA [id number] [place] [id number] [place] AMERICACO2 [Moles/Vol]27 mmol/LNormal 22-30[facility] on above:Order Comment: Specimen Type: BLOOD SPECIMENOrdering Facility: [facility] Address:[address] [place] [address]Gvgjtgvtc By: #### 06070-8, , 2776-10 ####[facility] LABCLIA [id number] [address] [place] AMERICACreatinine [Mass/Vol]0.98 mg/dL Normal0.73-1.22[facility] on above:Order Comment: Specimen Type: BLOOD SPECIMENOrdering Facility: [facility] Address:[address] [place] [address]Bqfsrshzl By: #### 07554-6, , 2776-10 ####[facility] LABIA [id number] [address] [place] AMERICACreatinine and Glomerular filtration rate.predicted panel (S/P/Bld)92 mL/min/1.73m???Normal>=60[facility] on above:Order Comment: Specimen Type: BLOOD SPECIMENOrdering Facility: [facility] Address:[address] [place], [place] [address]Result Comment: Estimated Glomerular Filtration Rate (eGFR) is calculated using the 2020 CKD-EPI creatinine equation. This equation utilizes serum creatinine, sex, and age as parameters. The creatinine assay has traceable calibration to isotope dilution-mass spectrometry. Refer to KDIGO guidelines for clinical interpretation. In patients with unstable renal function, e.g. those with acute kidney injury, the eGFR may not accurately reflect actual GFR.Performed By: #### 54142-6, , 2776-10 ####[facility] LABIA [id number] VILLE [address] [place] AMERICAGlucose [Mass/Vol]172 mg/lUGwjt51-61WkwzswhjjDayton [facility] Hospital on above:Order Comment: Specimen Type: BLOOD SPECIMENOrdering Facility: [facility] Address:[address] [place] [address]Tzqplb Comment: The [place] Diabetes Association (ADA) provides guidance for cutoff [...] unequivocal hyperglycemia, results should be confirmed by repeattesting. In a patient with classic symptoms of hyperglycemia or hyperglycemic crisis, random plasmaglucose results greater than or equal to 200 mg/dL meet the criteria for diagnosis of diabetes.Reference: Standards of Medical Care in Diabetes 2016, [place] [employer]. Diabetes Care. 2016.39(Suppl 1).Performed By: #### 78128- 8, 05890-8, 2776-10 ####[facility] LABIA [id number] [address] [place] AMERICAPotassium [Moles/Vol] 4.0 mmol/LNormal3.7-5.1CRegency Hospital [facility] on above:Order Comment: Specimen Type: BLOOD SPECIMENOrdering Facility: [facility] Address:[address] [place], [place] [address]Performed By: #### 64634-0, , 2776-10 ####[facility] LABIA [id number] [address] [place] AMERICAProtein [Mass/Vol]5.4 g/dLLow 6.3-8.0[facility] on above:Order Comment: Specimen Type: BLOOD SPECIMENOrdering Facility: [facility] Address:[address] [place] [id number] By: #### 12989-6, 33728-5, 2776-10 ####[facility] LABWH[facility] [id number] [address] [place] AMERICASodium [Moles/Vol]137 mmol/L Tmgchr672-646QpkrovgziDayton [facility]'s Hospital on above:Order Comment: Specimen Type: BLOOD SPECIMENOrdering Facility: [facility] Address:[address] [place], [place] [address]Performed By: #### 86704-4, 08680-5, 2776-10 ####[facility] LABCLIA [id number] VILLE [address] [place] AMERICAUrea nitrogen [Mass/Vol]12 mg/dL Normal9-24[facility] on above:Order Comment: Specimen Type: BLOOD SPECIMENOrdering Facility: [facility] Address:[address] [place], [place] [address]Performed By: #### 52255-1, , 2776-10 ####[facility] LABIA [id number] STATES OF AMERICAMagnesium SerPl-mCncon 08-30-2024 Magnesium [Mass/Vol]2.1 mg/dLNormal1.7-2.3ClevelMercy Memorial Hospital on above:Order Comment: Specimen Type: BLOOD SPECIMENOrdering Facility: [facility] Address:[address] [place], [place] [address]Performed By: #### 27937-4, 27704-21, , 1988-02 ####[facility] LABIA [id number] [address] [place] Magnesium [Mass/Vol]1.9 mg/dLNormal1.7-2.3CRegency Hospital [facility] on above:Order Comment: Specimen Type: BLOOD SPECIMENOrdering Facility: [facility] Address:[address] [place], [place] [address]Performed By: #### 60642-2, 48868-2, 27704-21 ####[facility] LABIA [id number] VILLE [id number] [place] PT panel Coag (PPP)on 27-28-4956POI Coag (PPP) [Relative time]1.1 {INR}Normal 0.9-1.3CRegency Hospital [facility] on above:Order Comment: Specimen Type: BLOOD SPECIMENOrdering Facility: [facility] Address:[address] [place], [place] [address]Result Comment: Vitamin K Antagonist (VKA) Therapeutic Range: INR 2 to 3 (Target INR of 2.5)Note: For patients treated with VKA drugs, such as warfarin, the [place] [employer] 2012 Guideline recommends a therapeutic INR range of 2 to 3 (target INR of 2.5). This recommendation includes high-risk patients with antiphospholipid syndrome with previous arterial or venous thromboembolism, current-generation mechanical or bioprosthetic aortic heart valve replacement.Note: Patients with mechanical aortic valve replacement and additional risk factors for thromboembolic events (atrialfibrillation, previous thromboembolism, LV dysfunction, hypercoagulable conditions) or an older generation mechanical AVR (i.e., ball in-Cage) or any mechanical MVR should have a INR therapeutic range of 2.5 to 3.5 (target INR of 3).Daren GH, et al. Chest 2012, 141:7S-47SNishimshira RA, et al. [facility] 2017, 70: 252-289Performed By: #### 84457-3, 97080-3 ####[facility] [id number] [place] [address] [place] AMERICAPT Coag (PPP) [Time]11.4 sNormal9.7-13.0L[facility] HospitalComment on above:Order Comment: Specimen Type: BLOOD SPECIMENOrdering Facility: [facility] Address:[address] [place] [address] Performed By: #### 28484-0, 41193-0 ####[facility] [id number] [place] [id number] [place] INR Coag (PPP) [Relative time]1.1 {INR}Normal0.9-1.3CTriHealth [facility] Comment on above:Order Comment: Specimen Type: BLOOD SPECIMENOrdering Facility: [facility] Address:[address] [place], [place] [address]Result Comment: Vitamin K Antagonist (VKA) Therapeutic Range: INR 2 to 3 (Target INR of 2.5)Note: For patients treated with VKA drugs, such as warfarin, the [place] [employer] 2012 Guideline recommends a therapeutic INR range of 2 to 3 (target INR of 2.5). This recommendation includes high-risk patients with antiphospholipid syndrome with previous arterial or venous thromboembolism, current-generation mechanical or bioprosthetic aortic heart valve replacement.Note: Patients with mechanical aortic valve replacement and additional risk factors for thromboembolic events (atrialfibrillation, previous thromboembolism, LV dysfunction, hypercoagulable conditions) or an older gene ration mechanical AVR (i.e., ball in-Cage) or any mechanical MVR should have a INR therapeutic range of 2.5 to 3.5 (target INR of 3).Daren GH, et al. Chest 2012, 141:7S-47SNishimura RA, et al. [facility] 2017, 70: 252-289Performed By: #### 94204-3, 32352-3 ####[facility] [id number] [place] [address] [place] AMERICAPT Coag (PPP) [Time] 11.7 sNormal9.7-13.0[facility] on above:Order Comment: Specimen Type: BLOOD SPECIMENOrdering Facility: [facility] Address:[address] [place], [place] [address]Performed By: #### 78487-3, 59156-4 ####[facility] [id number] [place] [address] [place] AMERICAPhosphate SerPl-mCncon 08-30-2024 Phosphate [Mass/Vol]1.9 mg/dLLow2.7-4.8CRegency Hospital [facility] on above:Order Comment: Specimen Type: BLOOD SPECIMENOrdering Facility: [facility] Address:[address] [place] [address] [place], [place] [address]Performed By: #### 03020-4, 2777-1, 16605-6, 1988-02 ####[facility] LABWH[facility] [id number] [place] [address] [place] Phosphate [Mass/Vol]1.9 mg/dLLow2.7-4.8CTriHealth Bethesda Butler HospitalComascension providence hospital on above:Order Comment: Specimen Type: BLOOD SPECIMENOrdering Facility: [facility] Address:[address] [place], [place] [address]Result Comment: Result rechecked.Performed By: #### 20288-1, 77283-5, 2777-1 ####[facility] LABCLIA [id number] [address]ETaPTT PPPon 13-18-7502tBMT Coag (PPP) [Time]27.9 s Nabafo10.0-32.4CTriHealth Bethesda Butler HospitalComment on above:Order Comment: Specimen Type: BLOOD SPECIMENOrdering Facility: [facility] Address:[address] [place], [place] [address]Performed By: #### 71412-1, 33117-4 ####[facility] LABCLIA [id number] [address]ETaPTT Coag (PPP) [Time]31.4 s Lkqrhl48.0-32.4CTriHealth Bethesda Butler HospitalComascension providence hospital on above:Order Comment: Specimen Type: BLOOD SPECIMENOrdering Facility: [facility] Address:[address] [place], [place] [address]Performed By: #### 90983-8, 30472-4 ####[facility] LABCLIA [id number] [place] [id number] [place] AMERICABasic metabolic 2000 panelon 32-35-2484Dkccg gap [Moles/Vol]13 mmol/LNormal8-15[facility] Comment on above:Order Comment: Specimen Type: BLOOD SPECIMENOrdering Facility: [facility] Address:[address] [place] [address] Performed By: #### 25308-7, 68771-4 ####[facility] LABCLIA [id number] [place] [address] [place] Calcium [Mass/Vol]8.0 mg/dLLow8.5-10.2CRegency Hospital [facility] on above:Order Comment: Specimen Type: BLOOD SPECIMENOrdering Facility: [facility] Address:[address] [place], [place] [address]Performed By: #### 15536-4, 63490-1 ####[facility] LABCLIA [id number] [place] [id number] [place] AMERICAChloride [Moles/Vol] 103 mmol/ROafptk97-898PdfgsagnnDayton Children's Hospital on above:Order Comment: Specimen Type: BLOOD SPECIMENOrdering Facility: [facility] Address:[address] [place], [place] [address]Performed By: #### 58744-2, 51893-6 ####[facility] LABCLIA [id number] [place] [address] [place] AMERICACO2 [Moles/Vol]22 mmol/LNormal 22-30[facility] on above:Order Comment: Specimen Type: BLOOD SPECIMENOrdering Facility: [facility] Address:[address] [place], [place] [address]Performed By: #### 00721-4, 28711-2 ####[facility] LABCLIA [id number] [place] [address] [place] AMERICACreatinine [Mass/Vol]0.93 mg/dLNormal0.73-1.22 [facility] on above:Order Comment: Specimen Type: BLOOD SPECIMENOrdering Facility: [facility] Address:[address] [place], [place] [address]Performed By: #### 76821-4, 36782-0 ####[facility] LABCLIA [id number] [place] [address] [place] AMERICACreatinine and Glomerular filtration rate.predicted panel (S/P/Bld)98 mL/min/1.73m???Normal>=60[facility] on above: Order Comment: Specimen Type: BLOOD SPECIMENOrdering Facility: [facility] Address:[address] [place], [place] [address]Vcqnet Comment: Estimated Glomerular Filtration Rate (eGFR) is calculated using the 2020 CKD-EPI cre atinine equation. This equation utilizes serum creatinine, sex, and age as parameters. The creatinine assay has traceable calibration to isotope dilution- mass spectrometry. Refer to KDIGO guidelines for clinical interpretation. In patients with unstable renal function, e.g. those with acute kidney injury, the eGFR may not accurately reflect actual GFR.Performed By: #### 24371-2, 19641-6 ####[facility] LABCLIA [id number] EUCL[address] AVENUEDESK [place] [address] [place] AMERICAGlucose [Mass/Vol]206 mg/dLHigh 74-99[facility] on above:Order Comment: Specimen Type: BLOOD SPECIMENOrdering Facility: [facility] Address:[address] [place], [place] [address]Result Comment: The [place] [employer] (ADA) provides guidance for cutoff [...] unequivocal hyperglycemia, results should be confirmed by repeattesting. In a patient with classic symptoms of hyperglycemia or hyperglycemic crisis, random plasmaglucose results greater than or equal to 200 mg/dL meet the criteria for diagnosis of diabetes.Reference: Standards of Medical Care in Diabetes 2016, [place] [employer]. Diabetes Care. 2016.39(Suppl 1).Performed By: #### 41488- 3, 38930-4 ####[facility] LABCLIA [id number] [facility] CENTERLID A VENUEDESK [place] [id number] [place] AMERICAPotassium [Moles/Vol] NormalDayton Children's Hospital on above:Order Comment: Specimen Type: BLOOD SPECIMENOrdering Facility: [facility] Address:[address] [place] [id number] Comment: Unable to assay due to interference from hemolysis. Suggest reorder as clinically indicated.Performed By: #### 14466-8, 95170-1 ####[facility] LABCLIA [id number] [place] [address] [place] [facility] HOSPITALSodium [Moles/Vol]138 mmol/MPrwdin559-299NclmhtoriDayton Children's Hospital on above:Order Comment: Specimen Type: BLOOD SPECIMENOrdering Facility: [facility] Address:[address] [place], [place] [address]Performed By: #### 85055-9, 04191-4 ####[facility] LABCLIA [id number] [place] [address] [place] AMERICAUrea nitrogen [Mass/Vol]14 mg/dL Normal9-24[facility] on above:Order Comment: Specimen Type: BLOOD SPECIMENOrdering Facility: [facility] Address:[address] [place], [place] [address]Performed By: #### 94446-1, 11461-2 ####[facility] LABIA [id number] [place] [address] [place] AMERICACASE MGT INIT ASSESon 56-22-7104UUOU MGT INIT ASSESNormalCMercy Health [facility] W Auto Differential panel (Bld)on 33-50-9885Jtcozokfg (Bld) [#/Vol]10*3/uLNormal<0.11CTriHealth [facility] Comment on above:Order Comment: Specimen Type: BLOOD SPECIMENOrdering Facility: [facility] Address:[address] [place] [address] Performed By: #### 01296-0 ####[facility] LABIA [id number] [place] [address] [place] Basophils/100 WBC (Bld)0.1 %NormalDayton Children's Hospital on above: Order Comment: Specimen Type: BLOOD SPECIMENOrdering Facility: [facility] Address:[address] [place], [place] [address]Performed By: #### 45102- 8 ####[facility] LABCLIA [id number] [place] [address] [place] AMERICADifferential cell count method Nom (Bld)AutoNormalCRegency Hospital [facility]edo on above:Order Comment: Specimen Type: BLOOD SPECIMENOrdering Facility: [facility] Address:[address] [place], [place] [address]Performed By: #### 62826-4 ####[facility] LABCLIA [id number] [place] [address] [place] AMERICAEosinophils (Bld) [#/Vol]10*3/uL Normal<0.46[facility] on above:Order Comment: Specimen Type: BLOOD SPECIMENOrdering Facility: [facility] Address:[address] [place], [place] [address]Performed By: #### 49565-4 ####[facility] LABIA [id number] [place] [address] [place] AMERICAEosinophils/100 WBC (Bld)0.0 %NormalDayton Children's Hospital on above:Order Comment: Specimen Type: BLOOD SPECIMENOrdering Facility: [facility] Address:[address] [place], [place] [address]Performed By: #### 90078-1 ####[facility] LABIA [id number] [place] [address] [place] Erythrocyte distribution width (RBC) [Ratio]12.8 %Qjzuuu57.5-15.0[facility] on above:Order Comment: Specimen Type: BLOOD SPECIMENOrdering Facility: [facility] Address:[address] [place], [place] [address]Performed By: #### 21244-2 ####[facility] LABIA [id number] [place] [address] [place] AMERICAHematocrit (Bld) [Volume fraction]26.7 %Low39.0-51.0[facility] on above:Order Comment: Specimen Type: BLOOD SPECIMENOrdering Facility: [facility] Address:[address] [place], [place] [address]Performed By: #### 93077-9 ####[facility] LABIA [id number] [place] [address] [place] Hemoglobin (Bld) [Mass/Vol]9.0 g/dLLow13.0-17.0[facility] HospitalComment on above:Order Comment: Specimen Type: BLOOD SPECIMENOrdering Facility: [facility] Address:[address] [place] [address] Performed By: #### 07908-3 ####[facility] LABIA [id number] [place] [address] [place] Immature granulocytes (Bld) [#/Vol]0.09 10*3/uLNormal<0.10[facility] HospitalComment on above:Order Comment: Specimen Type: BLOOD SPECIMENOrdering Facility: [facility] Address:[address] [place], [place] [address]Performed By: #### 77473-2 ####[facility] LABIA [id number] [place] [address] [place] Immature granulocytes/100 WBC (Bld)0.6 %NormalDayton Children's Hospital on above:Order Comment: Specimen Type: BLOOD SPECIMENOrdering Facility: [facility] Address:[address] [place] [address] Performed By: #### 03878-9 ####[facility] LABIA [id number] [place] [address] [place] Lymphocytes (Bld) [#/Vol]0.83 10*3/uLLow1.00-4.00[facility] Comment on above:Order Comment: Specimen Type: BLOOD SPECIMENOrdering Facility: [facility] Address:[address] [place] [address] Performed By: #### 34314-7 ####[facility] LABCLIA [id number] [address] [place] Lymphocytes/100 WBC (Bld)5.7 %NormalDayton Children's Hospital on above: Order Comment: Specimen Type: BLOOD SPECIMENOrdering Facility: [facility] Address:[address] [place], [place] [address]Performed By: #### 30472- 8 ####[facility] LABIA [id number] [address] STREETMC (RBC) [Entitic mass]29.7 pg Ohihnr01.0-34.0[facility] on above:Order Comment: Specimen Type: BLOOD SPECIMENOrdering Facility: [facility] Address:[address] [place], [place] [address]Performed By: #### 83902-4 ####[facility] LABIA [id number] [address] STREETMCHC (RBC) [Mass/Vol]33.7 g/dL Lslnch09.5-36.0[facility] on above:Order Comment: Specimen Type: BLOOD SPECIMENOrdering Facility: [facility] Address:[address] [place], [place] [address]Performed By: #### 25680-3 ####[facility] LABIA [id number] [address] STREETV (RBC) [Entitic vol]88.1 fL Dzzcoz53.0-100.0[facility] on above:Order Comment: Specimen Type: BLOOD SPECIMENOrdering Facility: [facility] Address:[address] [place], [place] [address]Performed By: #### 81828-5 ####[facility] LABIA [id number] [place] [address] [place] [facility] CAMPUSMonocytes (Bld) [#/Vol]1.13 10*3/uLHigh<0.87[facility] on above:Order Comment: Specimen Type: BLOOD SPECIMENOrdering Facility: [facility] Address:[address] [place], [place] [address]Performed By: #### 40654-0 ####[facility] LABCLIA [id number] [place] [address] [place] AMERICAMonocytes/100 WBC (Bld)7.7 % NormalDayton Children's Hospital on above:Order Comment: Specimen Type: BLOOD SPECIMENOrdering Facility: [facility] Address:[address] [place], [place] [address]Performed By: #### 69069-4 ####[facility] LABCLIA [id number] [place] [address] [place] AMERICANeutrophils (Bld) [#/Vol]12.57 10*3/uLHigh1.45-7.50[facility] on above:Order Comment: Specimen Type: BLOOD SPECIMENOrdering Facility: [facility] Address:[address] [place], [place] [address]Performed By: #### 88830-9 ####[facility] LABCLIA [id number] [place] [address] [place] AMERICANeutrophils/100 WBC (Bld)85.9 %NormalDayton Children's Hospital on above:Order Comment: Specimen Type: BLOOD SPECIMENOrdering Facility: [facility] Address:[address] [place] [address] Performed By: #### 50019-6 ####[facility] LABCLIA [id number] [place] [address] [place] Nucleated RBC (Bld) [#/Vol]10*3/uLNormal<0.01[facility] on above:Order Comment: Specimen Type: BLOOD SPECIMENOrdering Facility: [facility] Address:[address] [place] [address] Performed By: #### 96883-6 ####[facility] LABCLIA [id number] [place] [address] [place] Nucleated RBC/100 WBC (Bld) [Ratio]0.0 /100 WBCNormalCTriHealth Bethesda Butler Hospital Comment on above:Order Comment: Specimen Type: BLOOD SPECIMENOrdering Facility: [facility] Address:[address] [place] [address] Performed By: #### 54021-2 ####[facility] LABIA [id number] [place] [address] [place] Platelet mean volume (Bld) [Entitic vol]9.9 fLNormal9.0-12.7CTriHealth Bethesda Butler HospitalComment on above:Order Comment: Specimen Type: BLOOD SPECIMENOrdering Facility: [facility] Address:[address] [place], [place] [address]Performed By: #### [id number] ####[facility] LABIA [id number] [place] [address] [place] Platelets (Bld) [#/Vol]209 10*3/xDGuiflp326-850NqmkjngndLima Memorial HospitalComment on above:Order Comment: Specimen Type: BLOOD SPECIMENOrdering Facility: [facility] Address:[address] [place] [address] Performed By: #### [id number] ####[facility] LABIA [id number] [place] [address] [place] RBC (Bld) [#/Vol]3.03 10*6/uLLow4.20-6.00[facility] on above:Order Comment: Specimen Type: BLOOD SPECIMENOrdering Facility: [facility] Address:[address] [place], [place] [address]Performed By: #### 44290-1 ####[facility] LABIA [id number] [place] [address] [place] OF AMERICAWBC (Bld) [#/Vol]14.63 10*3/uLHigh3.70-11.00[facility] on above:Order Comment: Specimen Type: BLOOD SPECIMENOrdering Facility: [facility] Address:[address] [place], [place] [address]Performed By: #### 10038-6 ####[facility] LABCLIA [id number] [place] [address] [place] AMERICACONSULTon 18-38-2159UHURNRNXhllld [facility]ima Memorial HospitalHepatic function 2000 panelon 88-60-8892Xlvpzgp [Mass/Vol]3.7 g/dLLow3.9-4.9CRegency Hospital [facility] on above:Order Comment: Specimen Type: BLOOD SPECIMENOrdering Facility: [facility] Address:[address] [place], [place] [address]Performed By: #### 78090- 3, 51936-3 ####[facility] LABCLIA [id number] [facility] [place] [address] [place] AMERICAALP [Catalytic activity/Vol]55 U/ELyryjh45-226UckggtcjvDayton Children's Hospital on above:Order Comment: Specimen Type: BLOOD SPECIMENOrdering Facility: [facility] Address:[address] [place], [place] [address]Performed By: #### 36306- 3, 16589-9 ####[facility] LABCLIA [id number] [facility] [place] [address] [place] AMERICAALT [Catalytic activity/Vol]113 U/ZFfzk30-75KugerhswrDayton Children's Hospital on above:Order Comment: Specimen Type: BLOOD SPECIMENOrdering Facility: [facility] Address:[address] [place], [place] [address]Result Comment: Results may be falsely increased due to interference from hemolysis. Suggest reorder as clinically indicated.Performed By: #### 34943-6, 31064-0 ####[facility] LABCLIA [id number] [place] [address] [place] AMERICAAST [Catalytic activity/Vol]121 U/RFuhf11-13HzwxcarshDayton Children's Hospital on above:Order Comment: Specimen Type: BLOOD SPECIMENOrdering Facility: [facility] Address:[address] [place], [place] [address]Result Comment: Results may be falsely increased due to interference from hemolysis. Suggest reorder as clinically indicated.Performed By: #### 63393-2, 72501-5 ####[facility] LABCLIA [id number] [place] [address] [place] Bilirubin [Mass/Vol]0.6 mg/dLNormal0.2-1.3CRegency Hospital [place] on above:Order Comment: Specimen Type: BLOOD SPECIMENOrdering Facility: [facility] Address:[address] [place], [place] [address]Performed By: #### 94343-4, 91613-2 ####[facility] LABCLIA [id number] [address] STATES OF AMERICABilirubin.conjugated [Mass/Vol]mg/dLNormal<0.2CRegency Hospital [place] on above:Order Comment: Specimen Type: BLOOD SPECIMENOrdering Facility: [facility] Address:[address] [place], [place] [address]Result Comment: Results may be falsely decreased due to interference from hemolysis. Suggest reorder as clinically indicated.Performed By: #### 86745-3, 76655-3 ####[facility] LABCLIA [id number] [place] [address] [place] AMERICAProtein [Mass/Vol]5.3 g/dLLow6.3-8.0[facility] on above:Order Comment: Specimen Type: BLOOD SPECIMENOrdering Facility: [facility] Address:[address] [place], [place] [address]Performed By: #### 55335-1, 64235-2 ####[facility] LABCLIA [id number] [place] [address] [place] OF AMERICALactate (Bld) [Moles/Vol]on 58-43-7824Noyaoqx [Moles/Vol]1.8 mmol/L Normal0.5-2.2ClevelMercy Memorial Hospital on above:Order Comment: Specimen Type: BLOOD SPECIMENOrdering Facility: [facility] Address:[address] [place], [place] [address]Performed By: #### 65541-4 ####[facility] [id number] [place] [address] [place] OF AMERICANUTRITIONon 15-48-9188VFFUSFXPJZlhgrlWlqyzeiko Alleghany HealthTHERAPY NTon 99-38-2795BRUOKGM NTNormalCadena health systemand [facility] THERAPY NTNormalCadena health systemand [facility] POSTPROC EVALon 10-73-0625ERRH POSTPROC EVALNormalCadena health systemand [facility] PRE-OPon 89-16-7035BNUI PRE-OP NormalLima Memorial HospitalARTERIAL BLOOD GASESon 01-68-0020Lzlo excess Calc (Bld) [Moles/Vol]0 mmol/LNormal0-2ClevelMercy Memorial Hospital on above:Order Comment: Specimen Type: ARTERIAL BLOOD SPECIMENOrdering Facility: [facility]ITALAddress: [address]ITALJhon[address] [place] [address] Performed By: #### ALLBG ####[facility] [id number] [place] [address] [place] Calcium.ionized (Bld) [Mass/Vol]1.14 mmol/LNormal1.08-1.30[facility] on above:Order Comment: Specimen Type: ARTERIAL BLOOD SPECIMENOrdering Facility: [facility]ITALAddress: [address] [place] [id number] By: #### ALLBG ####[facility] [id number] [place] [address] [place] AMERICACalcium.ionized adjusted to pH 7.4 (BldA) [Moles/Vol]1.12 mmol/LNormal 1.08-1.30[facility] on above:Order Comment: Specimen Type: ARTERIAL BLOOD SPECIMENOrdering Facility: [facility] Address: [address] [place], [place] [address]Performed By: #### ALLBG ####[facility] LABCLIA [id number] [facility]D [facility] HOS[facility]ALK L [address] [place] [address] STATES OF AMERICACarboxyhemoglobin (BldA) [Mass fraction]1.3 %Normal0.0-2.0[facility] on above:Order Comment: Specimen Type: ARTERIAL BLOOD SPECIMENOrdering Facility: [facility]Address: [address] [place], [place] [address]Result Comment: Carboxyhemoglobin Reference Range for Smokers: 2.0-8.0%Performed By: #### ALLBG ####[facility] LABCLIA [id number] [facility]D [facility]ALK L [address] [place] [address] STATES OF AMERICACO2 (Bld) [Partial pressure]44 mm IwZltwaa68-45YfrztmsqhDayton Children's Hospital on above:Order Comment: Specimen Type: ARTERIAL BLOOD SPECIMENOrdering Facility: [facility] Address: [address] [place], [place] [address]Performed By: #### ALLBG ####[facility] LABCLIA [id number] [facility] [facility]ENTERK L [address] [place] [address] [place] AMERICACO2 adjusted to patient's actual temperature (Bld) [Partial pressure]44 gxByAzyrdu42-35GgzyclfufLima Memorial Hospital Comment on above:Order Comment: Specimen Type: ARTERIAL BLOOD SPECIMENOrdering Facility: [facility]Address: [address] [place], [place] [address]Performed By: #### ALLBG ####[facility] LABCLIA [id number] [facility]D [facility] [place] [address] [place] Glucose [Mass/Vol]171 mg/zIBzry76-406WgdcdxtjuDayton Children's Hospital on above: Order Comment: Specimen Type: ARTERIAL BLOOD SPECIMENOrdering Facility: [facility]ITALAddress: [address] [place] [address] Performed By: #### ALLBG ####[facility] LABCLIA [id number] [place] [address] [place] AMERICAHCO3 (Bld) [Moles/Vol]25 mmol/KMyppkn92-09MrfcjjbrqDayton Children's Hospital on above:Order Comment: Specimen Type: ARTERIAL BLOOD SPECIMENOrdering Facility: [facility]Address: [address] [place] [id number] By: #### ALLBG ####[facility] LABCLIA [id number] [place] [address] [place] AMERICAHematocrit (Bld) [Volume fraction]26.6 %Low39.0-51.0[facility] on above:Order Comment: Specimen Type: ARTERIAL BLOOD SPECIMENOrdering Facility: [facility]Address: [address] [place] [id number] By: #### ALLBG ####[facility] LABCLIA [id number] [place] [address] [place] AMERICAHemoglobin (Bld) [Mass/Vol]8.6 g/dLLow13.0-17.0[facility] on above:Order Comment: Specimen Type: ARTERIAL BLOOD SPECIMENOrdering Facility: [facility]Address: [address] [place], [place] [address]Ovtmcxumn By: #### ALLBG ####[facility] LABCLIA [id number] [address] [address] [place] OF AMERICALactate [Moles/Vol]3.3 mmol/LHigh 0.5-2.2CRegency Hospital [facility] on above:Order Comment: Specimen Type: ARTERIAL BLOOD SPECIMENOrdering Facility: [facility]ITALAddress: [address] [phone] By: #### ALLBG ####[facility] LABCLIA [id number] [address] [address] [place] AMERICAMethemoglobin (Bld) [Mass fraction]0.7 %Normal 0.0-1.5CRegency Hospital [place] on above:Order Comment: Specimen Type: ARTERIAL BLOOD SPECIMENOrdering Facility: [facility]ITALAddress: [address] [facility] HOSPITALJhonathan [place], [place] [address]Agrxusgsc By: #### ALLBG ####[facility] LABCLIA [id number] [address] [address] [place] OF AMERICAOxygen (Bld) [Partial pressure]201 mm NzPnjt34-11 [facility] on above:Order Comment: Specimen Type: ARTERIAL BLOOD SPECIMENOrdering Facility: [facility]Address: [address] [place] [phone] By: #### ALLBG ####[facility] LABCLIA [id number] [address] [address] [place] AMERICAOxygen adjusted to patient's actual temperature (Bld) [Partial pressure]201 pyZdNcen87-77MgwbznvpfDayton Children's Hospital on above:Order Comment: Specimen Type: ARTERIAL BLOOD SPECIMENOrdering Facility: [facility]Address: [address] [place] [address] Performed By: #### ALLBG ####[facility] LABCLIA [id number] [address] [address] [place] OF AMERICAOxyhemoglobin (BldA) [Mass fraction]98 %Paypya83-94MqwdebblcDayton Children's Hospital on above: Order Comment: Specimen Type: ARTERIAL BLOOD SPECIMENOrdering Facility: [facility]Address: [address] [place] [address] Performed By: #### ALLBG ####[facility] LABCLIA [id number] [address] [address] [place] AMERICApH (Bld)7.36 [pH]Normal7.35-7.45[facility] on above:Order Comment: Specimen Type: ARTERIAL BLOOD SPECIMENOrdering Facility: [facility]Address: [address] [place], [place] [address]Wndrkofkl By: #### ALLBG ####[facility] LABCLIA [id number] [facility] L [address] [address] [place] AMERICApH adjusted to patient's actual temperature (Bld)7.41Jnyfld3.35-7.45[facility] on above: Order Comment: Specimen Type: ARTERIAL BLOOD SPECIMENOrdering Facility: [facility]Address: [address] [facility] HOSPITALJhonathan [place] [phone] Performed By: #### ALLBG ####[facility] LABIA [id number] [place] [address] [place] AMERICAPotassium [Moles/Vol]3.6 mmol/LNormal3.5-5.0[facility] on above: Order Comment: Specimen Type: ARTERIAL BLOOD SPECIMENOrdering Facility: [facility]Address: [address] [place] [phone] Performed By: #### ALLBG ####[facility] LABCLIA [id number] [place] [address] [place] AMERICASodium [Moles/Vol]138 mmol/BVurdnq183-554PlovyhqbrDayton Children's Hospital on above: Order Comment: Specimen Type: ARTERIAL BLOOD SPECIMENOrdering Facility: [facility]Address: [address] [place] [address] Performed By: #### ALLBG ####[facility] LABIA [id number] [address] [address] [place] OF AMERICAARTERIAL BLOOD GASES WITH IONIZED MAGNESIUMon 20-09-7891Ggnb excess Calc (Bld) [Moles/Vol]1 mmol/LNormal0-2CRegency Hospital [facility] on above:Order Comment: Specimen Type: ARTERIAL BLOOD SPECIMENOrdering Facility: [facility]Address: [address] [place] [id number] By: #### ALLMG ####[facility] LABCLIA [id number] [facility]D AVENUECOMMUNITY REGIONAL MEDICAL CENTERK L [address] [address] [place] AMERICACalcium.ionized (Bld) [Mass/Vol] 1.16 mmol/LNormal1.08-1.30[facility] on above:Order Comment: Specimen Type: ARTERIAL BLOOD SPECIMENOrdering Facility: [facility]Address: [address] [place], [place] [address]Performed By: #### ALLMG ####[facility] LABIA [id number] [address] [facility]ENTERK [id number] [place], [place] [address] [place] AMERICACalcium.ionized adjusted to pH 7.4 (BldA) [Moles/Vol]1.15 mmol/LNormal1.08-1.30[facility] Comment on above:Order Comment: Specimen Type: ARTERIAL BLOOD SPECIMENOrdering Facility: [facility]Address: [address] [place], [place] [address]Performed By: #### ALLMG ####[facility] LABIA [id number] [facility] [id number] [place] [address] [place] Carboxyhemoglobin (BldA) [Mass fraction]1.5 %Normal0.0-2.0[facility] HospitalComascension providence hospital on above:Order Comment: Specimen Type: ARTERIAL BLOOD SPECIMENOrdering Facility: [facility]Address: [address] [place], [place] [address]Result Comment: Carboxyhemoglobin Reference Range for Smokers: 2.0-8.0%Performed By: #### ALLMG ####[facility] LABIA [id number] [place] [address] [place] AMERICACO2 (Bld) [Partial pressure]42 mm IdPfhoes10-47IbjihznemLima Memorial Hospital Comment on above:Order Comment: Specimen Type: ARTERIAL BLOOD SPECIMENOrdering Facility: [facility]Address: [address] [place] [id number] By: #### ALLMG ####[facility] LABCLIA [id number] [place] [address] [place] CO2 adjusted to patient's actual temperature (Bld) [Partial pressure]42 mmHg Cgapne36-62UovwqzdcaDayton Children's Hospital on above:Order Comment: Specimen Type: ARTERIAL BLOOD SPECIMENOrdering Facility: [facility] Address: [address] [place], [place] [address]Performed By: #### ALLMG ####[facility] LABCLIA [id number] [place] [address] [place] AMERICAGlucose [Mass/Vol]220 mg/dLHigh 60-105[facility] on above:Order Comment: Specimen Type: ARTERIAL BLOOD SPECIMENOrdering Facility: [facility]Address: [address] [place], [place] [address]Performed By: #### ALLMG ####[facility] LABCLIA [id number] [place] [address] [place] AMERICAHCO3 (Bld) [Moles/Vol]25 mmol/EWgvxig61-50 [facility] on above:Order Comment: Specimen Type: ARTERIAL BLOOD SPECIMENOrdering Facility: [facility]Address: [address] [place], [place] [address]Performed By: #### ALLMG ####[facility] LABCLIA [id number] [place] [address] [place] AMERICAHematocrit (Bld) [Volume fraction]32.3 %Low 39.0-51.0[facility] on above:Order Comment: Specimen Type: ARTERIAL BLOOD SPECIMENOrdering Facility: [facility] Address: [address] [place], [place] [address]Performed By: #### ALLMG ####[facility] LABCLIA [id number] [place] [address] [place] AMERICAHemoglobin (Bld) [Mass/Vol]10.4 g/dLLow13.0-17.0[facility] on above:Order Comment: Specimen Type: ARTERIAL BLOOD SPECIMENOrdering Facility: [facility]Address: [address] [place], [place] [address]Performed By: #### ALLMG ####[facility] LABCLIA [id number] [place] [address] [place] AMERICALactate [Moles/Vol]2.0 mmol/L Normal0.5-2.2CRegency Hospital [facility] on above:Order Comment: Specimen Type: ARTERIAL BLOOD SPECIMENOrdering Facility: [facility] Address: [address] [place], [place] [address]Performed By: #### ALLMG ####[facility] LABIA [id number] [place] [address] [place] AMERICAMagnesium [Moles/Vol]0.40 mmol/L Low0.45-0.60[facility] on above:Order Comment: Specimen Type: ARTERIAL BLOOD SPECIMENOrdering Facility: [facility] Address: [address] [place], [place] [address]Performed By: #### ALLMG ####[facility] LABCLIA [id number] [address] STATES OF AMERICAMethemoglobin (Bld) [Mass fraction]0.5 %Normal0.0-1.5CRegency Hospital [facility] on above:Order Comment: Specimen Type: ARTERIAL BLOOD SPECIMENOrdering Facility: [facility]Address: [address] [place], [place] [address]Performed By: #### ALLMG ####[facility] LABCLIA [id number] [place] [address] [place] AMERICAOxygen (Bld) [Partial pressure] 179 mm EqRycx30-24VztkcssboDayton Children's Hospital on above:Order Comment: Specimen Type: ARTERIAL BLOOD SPECIMENOrdering Facility: [facility]Address: [address] [place], [place] [address]Performed By: #### ALLMG ####[facility] LABCLIA [id number] [facility]D [facility] HOSPITALK [address] [address] [place] AMERICAOxygen adjusted to patient's actual temperature (Bld) [Partial pressure]179 rmEoWpbp41-15IzrhiawuyLima Memorial HospitalComment on above:Order Comment: Specimen Type: ARTERIAL BLOOD SPECIMENOrdering Facility: [facility]Address: [address] [place] [id number] By: #### ALLMG ####[facility] LABCLIA [id number] [place] [address] [place] AMERICAOxyhemoglobin (BldA) [Mass fraction]98 %Nrhvzs18-30IzohswdolLima Memorial HospitalComment on above:Order Comment: Specimen Type: ARTERIAL BLOOD SPECIMENOrdering Facility: [facility]Address: [address] [place], [place] [address]Performed By: #### ALLMG ####[facility] LABIA [id number] [place] [address] [place] AMERICApH (Bld)7.40 [pH]Normal7.35-7.45[facility] on above:Order Comment: Specimen Type: ARTERIAL BLOOD SPECIMENOrdering Facility: [facility]Address: [address] [place] [phone] Performed By: #### ALLMG ####[facility] LABIA [id number] [place] [address] [place] AMERICApH adjusted to patient's actual temperature (Bld)7.65Cktolu9.35-7.45[facility] Comment on above:Order Comment: Specimen Type: ARTERIAL BLOOD SPECIMENOrdering Facility: [facility]Address: [address] [place] [id number] By: #### ALLMG ####[facility] LABIA [id number] [address] [address] [place] Potassium [Moles/Vol]4.1 mmol/LNormal3.5-5.0[facility] on above:Order Comment: Specimen Type: ARTERIAL BLOOD SPECIMENOrdering Facility: [facility]Address: [address] [place] [address] Performed By: #### ALLMG ####[facility] LABIA [id number] [place] [address] [place] AMERICASodium [Moles/Vol]137 mmol/QShvkba573-599HcuolcqztDayton [facility]'s Hospital on above: Order Comment: Specimen Type: ARTERIAL BLOOD SPECIMENOrdering Facility: [facility]Address: [address] [place] [address] Performed By: #### ALLMG ####[facility] LABIA [id number] [place] [address] [place] AMERICABase excess Calc (Bld) [Moles/Vol]2 mmol/LNormal0-2CRegency Hospital [facility] on above:Order Comment: Specimen Type: ARTERIAL BLOOD SPECIMENOrdering Facility: [facility]Address: [address] [place] [address] Performed By: #### ALLMG ####[facility] LABIA [id number] [place] [address] [place] Calcium.ionized (Bld) [Mass/Vol]1.21 mmol/LNormal1.08-1.30[facility] on above:Order Comment: Specimen Type: ARTERIAL BLOOD SPECIMENOrdering Facility: [facility]Address: [address] [place] [address]Performed By: #### ALLMG ####[facility] LABIA [id number] [place] [address] [place] AMERICACalcium.ionized adjusted to pH 7.4 (BldA) [Moles/Vol]1.22 mmol/LNormal 1.08-1.30[facility] on above:Order Comment: Specimen Type: ARTERIAL BLOOD SPECIMENOrdering Facility: [facility] Address: [address] [place], [place] [address]Performed By: #### ALLMG ####[facility] LABCLIA [id number] [facility]D [address] STATES OF [facility]IAL HOSPITALCarboxyhemoglobin (BldA) [Mass fraction]1.5 %Normal0.0-2.0[facility] on above:Order Comment: Specimen Type: ARTERIAL BLOOD SPECIMENOrdering Facility: [facility]ITALAddress: [address] [place], [place] [address]Result Comment: Carboxyhemoglobin Reference Range for Smokers: 2.0-8.0%Performed By: #### ALLMG ####[facility] LABCLIA [id number] [address] STATES OF [facility] HOSPITALCO2 (Bld) [Partial pressure]40 mm NuHwtque46-86JyinjcfgoDayton Children's Hospital on above:Order Comment: Specimen Type: ARTERIAL BLOOD SPECIMENOrdering Facility: [facility] Address: [address] [place], [place] [address]Performed By: #### ALLMG ####[facility] LABCLIA [id number] [address]CO2 adjusted to patient's actual temperature (Bld) [Partial pressure]40 fiDrMbaxcr39-98JbyqlpvriLima Memorial Hospital Comment on above:Order Comment: Specimen Type: ARTERIAL BLOOD SPECIMENOrdering Facility: [facility]ITALAddress: [address] [place] [id number] By: #### ALLMG ####[facility] LABCLIA [id number] [place] [address] [place] Glucose [Mass/Vol]142 mg/aNKkpo57-699GdzumballDayton Children's Hospital on above: Order Comment: Specimen Type: ARTERIAL BLOOD SPECIMENOrdering Facility: [facility]ITALAddress: [address] [place] [id number] Performed By: #### ALLMG ####[facility] LABCLIA [id number] [address] AV[id number], [place] [address] [place] AMERICAHCO3 (Bld) [Moles/Vol]26 mmol/ICucaqw50-38GzwlllesuDayton Children's Hospital on above:Order Comment: Specimen Type: ARTERIAL BLOOD SPECIMENOrdering Facility: [facility]Address: [address] [place], [place] [address]Performed By: #### ALLMG ####[facility] LABCLIA [id number] [place] [address] [place] AMERICAHematocrit (Bld) [Volume fraction]37.7 %Low39.0-51.0[facility] on above:Order Comment: Specimen Type: ARTERIAL BLOOD SPECIMENOrdering Facility: [facility]ITALAddress: [address] [place], [place] [address]Performed By: #### ALLMG ####[facility] LABCLIA [id number] [place] [address] [place] AMERICAHemoglobin (Bld) [Mass/Vol]12.3 g/dLLow13.0-17.0[facility] on above:Order Comment: Specimen Type: ARTERIAL BLOOD SPECIMENOrdering Facility: [facility]ITALAddress: [address] [place], [place] [address]Performed By: #### ALLMG ####[facility] LABCLIA [id number] [place] [address] [place] AMERICALactate [Moles/Vol]1.8 mmol/L Normal0.5-2.2CRegency Hospital [facility] on above:Order Comment: Specimen Type: ARTERIAL BLOOD SPECIMENOrdering Facility: [facility] Address: [address] [place], [place] [address]Performed By: #### ALLMG ####[facility] LABCLIA [id number] [place] [address] [place] AMERICAMagnesium [Moles/Vol]0.52 mmol/L Normal0.45-0.60[facility] on above:Order Comment: Specimen Type: ARTERIAL BLOOD SPECIMENOrdering Facility: [facility]ITALAddress: [address] [place], [place] [address]Kvjumueey By: #### ALLMG ####[facility] LABCLIA [id number] [facility]D [facility] HOSPITALK [address] [place] [id number] [place] AMERICAMethemoglobin (Bld) [Mass fraction]0.8 %Normal0.0-1.5CRegency Hospital [facility] on above:Order Comment: Specimen Type: ARTERIAL BLOOD SPECIMENOrdering Facility: [facility]OSPITALAddress: [address] [id number] By: #### ALLMG ####[facility] LABCLIA [id number] [address] [facility] MEDICAL CENTERK [address] [address] [place] AMERICAOxygen (Bld) [Partial pressure] 116 mm [id number] Children's Hospital on above:Order Comment: Specimen Type: ARTERIAL BLOOD SPECIMENOrdering Facility: [facility]OSPITALAddress: [address] [place] [id number] By: #### ALLMG ####[facility] LABCLIA [id number] [facility]D [facility] HOSPITALK [place] [id number] [place] AMERICAOxygen adjusted to patient's actual temperature (Bld) [Partial pressure]116 [id number] Children's Hospital on above:Order Comment: Specimen Type: ARTERIAL BLOOD SPECIMENOrdering Facility: [facility]ORIAL [facility]OSPITALAddress: [address], [place] [address]Aedphhlhy By: #### ALLMG ####[facility] LABCLIA [id number] [facility] HOSPITALK [address] [address] [place] OF AMERICAOxyhemoglobin (BldA) [Mass fraction]97 %Ylanbr01-41ZtflvacsqDayton Children's Hospital on above:Order Comment: Specimen Type: ARTERIAL BLOOD SPECIMENOrdering Facility: [facility]OSPITALAddress: [address], [place] [address]Ytzojljwx By: #### ALLMG ####[facility] LABCLIA [id number] [place] [address] [place] OF AMERICApH (Bld)7.43 [pH]Normal7.35-7.45[facility] HospitalComasc[facility] on above:Order Comment: Specimen Type: ARTERIAL BLOOD SPECIMENOrdering Facility: [facility]OSPITALAddress: [address] [place] [id number] Performed By: #### ALLMG ####[facility] LABCLIA [id number] [place] [address] [place] AMERICApH adjusted to patient's actual temperature (Bld)7.88Dwvmvh3.35-7.45[facility] Comment on above:Order Comment: Specimen Type: ARTERIAL BLOOD SPECIMENOrdering Facility: [facility]OSPITALAddress: [address] [place] [id number] By: #### ALLMG ####[facility] LABCLIA [id number] [place] [address] [place] Potassium [Moles/Vol]4.1 mmol/LNormal3.5-5.0[facility] HospitalComascension providence hospital on above:Order Comment: Specimen Type: ARTERIAL BLOOD SPECIMENOrdering Facility: [facility]OSPITALAddress: [address] [place] [id number] Performed By: #### ALLMG ####[facility] LABCLIA [id number] [place] [address] [place] AMERICASodium [Moles/Vol]137 mmol/FBenkkx733-145CdljemgrnLima Memorial HospitalComascension providence hospital on above: Order Comment: Specimen Type: ARTERIAL BLOOD SPECIMENOrdering Facility: [facility]OSPITALAddress: [address] [place] [address] Performed By: #### ALLMG ####[facility] LABCLIA [id number] [place] [address] [place] OF AMERICABRIEF OP NOTon 48-12-0964TJBXX OP NOTNormalCTriHealth Bethesda Butler HospitalBacteria Spec Anaerobe Culton 65-18-0578Lneijnas identified Anaer cx Nom (Unsp spec)NegativeNormal [facility] on above:Performed By: #### 635-3, 6462-6, 96710-8 ####[facility] LABCLIA [id number] [place] [address] [place] AMERICABacteria Wnd Culton 27-09-9081Clinrvvy identified Cx Nom (Wound)CULTURE, WOUND: No growth GRAM STAIN: No organisms seen No Polymorphonuclear LeukocytesNormalCRegency Hospital [place]edo on above: Performed By: #### 635-3, 6462-6, 48779-2 ####[facility] LABCLIA [id number] [place] [address] [place] AMERICACBC W Auto Differential panel (Bld)on 14-59-1829Labsytevl (Bld) [#/Vol] 0.00 10*3/uLNormal<0.11CRegency Hospital [place] on above:Order Comment: Specimen Type: BLOOD SPECIMENOrdering Facility: [facility] Address:[address] [place], [place] [address]Performed By: #### 66646-2 ####[facility] LABCLIA [id number] [place] [address] [place] AMERICABasophils/100 WBC (Bld)0.0 % NormalDayton Children's Hospital on above:Order Comment: Specimen Type: BLOOD SPECIMENOrdering Facility: [facility] Address:[address] [place], [place] [address]Performed By: #### 78175-1 ####[facility] LABCLIA [id number] [place] [address] [place] AMERICADifferential cell count method Nom (Bld)ManualNormalCRegency Hospital Toledo on above:Order Comment: Specimen Type: BLOOD SPECIMENOrdering Facility: [facility] Address:[address] [place], [place] [address]Performed By: #### 39983-8 ####[facility] LABCLIA [id number] [place] [address] [place] AMERICAEosinophils (Bld) [#/Vol]0.00 10*3/uLNormal<0.46[facility] on above:Order Comment: Specimen Type: BLOOD SPECIMENOrdering Facility: [facility] Address:[address] [place], [place] [address]Performed By: #### 20474-9 ####[facility] LABCLIA [id number] [place] [address] [place] Eosinophils/100 WBC (Bld)0.0 %NormalDayton Children's Hospital on above: Order Comment: Specimen Type: BLOOD SPECIMENOrdering Facility: [facility] Address:[address] [place], [place] [address]Performed By: #### 25508- 8 ####[facility] LABIA [id number] [place] [address] [place] AMERICAErythrocyte distribution width (RBC) [Ratio]12.7 %Ecocrz44.5-15.0[facility] on above: Order Comment: Specimen Type: BLOOD SPECIMENOrdering Facility: [facility] Address:[address] [place], [place] [address]Performed By: #### 55725- 8 ####[facility] LABIA [id number] [place] [address] [place] AMERICAHematocrit (Bld) [Volume fraction]25.2 %Low39.0-51.0[facility] on above:Order Comment: Specimen Type: BLOOD SPECIMENOrdering Facility: [facility] Address:[address] [place], [place] [address]Performed By: #### 20755- 8 ####[facility] LABIA [id number] [place] [address] [place] AMERICAHemoglobin (Bld) [Mass/Vol]8.4 g/dLLow13.0-17.0[facility] on above:Order Comment: Specimen Type: BLOOD SPECIMENOrdering Facility: [facility] Address:[address] [place], [place] [address]Performed By: #### 20136-6 ####[facility] LABCLIA [id number] [place] [address] [place] AMERICALymphocytes (Bld) [#/Vol]0.27 10*3/uLLow1.00-4.00[facility] on above:Order Comment: Specimen Type: BLOOD SPECIMENOrdering Facility: [facility] Address:[address] [place], [place] [address]Performed By: #### 99487-4 ####[facility] LABCLIA [id number] [place] [address] [place] AMERICALymphocytes/100 WBC (Bld)1.7 % NormalDayton Children's Hospital on above:Order Comment: Specimen Type: BLOOD SPECIMENOrdering Facility: [facility] Address:[address] [place], [place] [address]Performed By: #### 76783-0 ####[facility] LABIA [id number] [place] [address] [place] AMERICAMCH (RBC) [Entitic mass]29.0 lcIkmonk31.0-34.0[facility] on above:Order Comment: Specimen Type: BLOOD SPECIMENOrdering Facility: [facility] Address:[address] [place], [place] [address]Performed By: #### 87047-3 ####[facility] LABIA [id number] [place] [address] [place] MCHC (RBC) [Mass/Vol]33.3 g/gQVivvry17.5-36.0[facility] on above:Order Comment: Specimen Type: BLOOD SPECIMENOrdering Facility: [facility] Address:[address] [place] [address] Performed By: #### 71397-2 ####[facility] LABCLIA [id number] [place] [address] [place] MCV (RBC) [Entitic vol]86.9 qLAhbpxh37.0-100.0[facility] on above:Order Comment: Specimen Type: BLOOD SPECIMENOrdering Facility: [facility] Address:[address] [place] [address] Performed By: #### 97091-0 ####[facility] LABCLIA [id number] [place] [address] [place] Monocytes (Bld) [#/Vol]1.34 10*3/uLHigh<0.87[facility] on above:Order Comment: Specimen Type: BLOOD SPECIMENOrdering Facility: [facility] Address:[address] [place], [place] [address]Performed By: #### 58951-0 ####[facility] LABCLIA [id number] [place] [address] [place] AMERICAMonocytes/100 WBC (Bld)8.5 %NormalDayton Children's Hospital on above:Order Comment: Specimen Type: BLOOD SPECIMENOrdering Facility: [facility] Address:[address] [place], [place] [address]Performed By: #### 90214-5 ####[facility] LABCLIA [id number] [place] [address] [place] AMERICANeutrophils (Bld) [#/Vol]14.14 10*3/uLHigh1.45-7.50[facility] on above:Order Comment: Specimen Type: BLOOD SPECIMENOrdering Facility: [facility] Address:[address] [place], [place] [address]Performed By: #### 31690-0 ####[facility] LABCLIA [id number] [place] [address] [place] AMERICANeutrophils/100 WBC (Bld)89.8 % NormalDayton Children's Hospital on above:Order Comment: Specimen Type: BLOOD SPECIMENOrdering Facility: [facility] Address:[address] [place], [place] [address]Performed By: #### 29496-1 ####[facility] LABCLIA [id number] [place] [address] [place] AMERICANucleated RBC (Bld) [#/Vol]10*3/uLNormal<0.01[facility] on above:Order Comment: Specimen Type: BLOOD SPECIMENOrdering Facility: [facility] Address:[address] [place], [place] [address]Performed By: #### 37230-2 ####[facility] LABCLIA [id number] [place] [address] [place] Nucleated RBC/100 WBC (Bld) [Ratio]0.0 /100 WBCNormalCTriHealth Bethesda Butler Hospital Comment on above:Order Comment: Specimen Type: BLOOD SPECIMENOrdering Facility: [facility] Address:[address] [place] [address] Performed By: #### 86954-1 ####[facility] LABCLIA [id number] [place] [address] [place] Platelet mean volume (Bld) [Entitic vol]9.7 fLNormal9.0-12.7CRegency Hospital [place] on above:Order Comment: Specimen Type: BLOOD SPECIMENOrdering Facility: [facility] Address:[address] [place], [place] [address]Performed By: #### 73351-0 ####[facility] LABCLIA [id number] [place] [address] [place] Platelets (Bld) [#/Vol]218 10*3/pNVyltyw742-430NdhaztjfcDayton Children's Hospital on above:Order Comment: Specimen Type: BLOOD SPECIMENOrdering Facility: [facility] Address:[address] [place] [address] Performed By: #### 29683-6 ####[facility] LABCLIA [id number] [place] [address] [place] Platelets Estimate (Bld) [#/Vol]AdequateNormalCRegency Hospital Toledo on above:Order Comment: Specimen Type: BLOOD SPECIMENOrdering Facility: [facility] Address:[address] [place] [address] Performed By: #### 02221-4 ####[facility] LABCLIA [id number] [place] [address] [place] Polychromasia LM Ql (Bld)SlightNormalCRegency Hospital Toledo on above: Order Comment: Specimen Type: BLOOD SPECIMENOrdering Facility: [facility] Address:[address] [place], [place] [address]Performed By: #### 02066- 8 ####[facility] LABCLIA [id number] [place] [address] [place] AMERICARBC (Bld) [#/Vol]2.90 10*6/uLLow 4.20-6.00[facility] on above:Order Comment: Specimen Type: BLOOD SPECIMENOrdering Facility: [facility] Address:[address] [place], [place] [address]Performed By: #### 92660-3 ####[facility] LABCLIA [id number] [place] [address] [place] AMERICARED CELL MORPHReviewed: unremarkableNormalCRegency Hospital Toledo on above:Order Comment: Specimen Type: BLOOD SPECIMENOrdering Facility: [facility] Address:[address] [place], [place] [address]Performed By: #### 51382-5 ####[facility] LABCLIA [id number] [place] [address] [place] AMERICAWBC (Bld) [#/Vol]15.75 10*3/uLHigh3.70-11.00[facility] Comment on above:Order Comment: Specimen Type: BLOOD SPECIMENOrdering Facility: [facility] Address:[address] [place] [address] Performed By: #### 52978-1 ####[facility] LABCLIA [id number] [place] [address] [place] Comprehensive metabolic 2000 panelon 70-53-5710Xzvnslh [Mass/Vol]4.2 g/dLNormal 3.9-4.9CTriHealth Bethesda Butler HospitalComment on above:Order Comment: Specimen Type: BLOOD SPECIMENOrdering Facility: [facility] Address:[address] [place], [place] [address]Performed By: #### 3040-3, 08841-4, 36286-0, 2777-1 ####[facility] LABCLIA [id number] [address] STATES OF AMERICAALP [Catalytic activity/Vol]56 U/CDcubtc71-512KzdqstdcyLima Memorial HospitalComment on above:Order Comment: Specimen Type: BLOOD SPECIMENOrdering Facility: [facility] Address:[address] [place], [place] [address]Performed By: #### 3040-3, 71697-3, 35909-9, 2777-1 ####[facility] LABCLIA [id number] [address] AMERICAALT [Catalytic activity/Vol]113 U/XAahk09-84UqhtszgghDayton Children's Hospital on above:Order Comment: Specimen Type: BLOOD SPECIMENOrdering Facility: [facility] Address:[address] [place], [place] [address]Performed By: #### 3040- 3, 53161-1, 57021-9, 2777-1 ####[facility] LABCLIA [id number] [place] [address] [place] AMERICAAnion gap [Moles/Vol]13 mmol/LNormal8-15[facility] on above: Order Comment: Specimen Type: BLOOD SPECIMENOrdering Facility: [facility] Address:[address] [place], [place] [address]Performed By: #### 3040- 3, 28460-4, 74639-7, 7-1 ####[facility] LABCLIA [id number] [place] [address] [place] AMERICAAST [Catalytic activity/Vol]123 U/NDcsh74-88CmtxxpwvbDayton Children's Hospital on above:Order Comment: Specimen Type: BLOOD SPECIMENOrdering Facility: [facility] Address:[address] [place], [place] [address]Performed By: #### 3040-3, 15924-4, 89218-6, 2776-1 ####[facility] LABCLIA [id number] [place] [address] [place] Bilirubin [Mass/Vol]1.0 mg/dLNormal0.2-1.3CRegency Hospital [facility]edo on above:Order Comment: Specimen Type: BLOOD SPECIMENOrdering Facility: [facility] Address:[address] [place], [place] [address]Performed By: #### 3040-3, 56060-1, 82079-8, 2776-1 ####[facility] LABCLIA [id number] [place] [address] [place] Calcium [Mass/Vol]8.0 mg/dLLow8.5-10.2CRegency Hospital [facility]edo on above:Order Comment: Specimen Type: BLOOD SPECIMENOrdering Facility: [facility] Address:[address] [place], [place] [address]Performed By: #### 3040-3, 23140-7, 54966-6, 7-1 ####[facility] LABCLIA [id number] [address] [place] [address] [place] Chloride [Moles/Vol]103 mmol/RHvfpib37-247RptiflgshDayton Children's Hospital on above:Order Comment: Specimen Type: BLOOD SPECIMENOrdering Facility: [facility] Address:[address] [place], [place] [address]Performed By: #### 3040-3, 99806-6, 41610-8, 2777-1 ####[facility] LABCLIA [id number] [place] [address] [place] CO2 [Moles/Vol]23 mmol/TIcayok43-37GqdvmbnmzDayton Children's Hospital on above: Order Comment: Specimen Type: BLOOD SPECIMENOrdering Facility: [facility] Address:[address] [place], [place] [address]Performed By: #### 3040- 3, 13622-1, 84807-6, 2777-1 ####[facility] LABCLIA [id number] [place] [address] [place] Creatinine [Mass/Vol]0.98 mg/dLNormal0.73-1.22[facility] on above:Order Comment: Specimen Type: BLOOD SPECIMENOrdering Facility: [facility] Address:[address] [place] [address] Performed By: #### 3040-3, 36515-9, 38717-7, 2777-1 ####[facility] LABCLIA [id number] [place] [address] [place] [facility]OSPITALCreatinine and Glomerular filtration rate.predicted panel (S/P/Bld)92 mL/min/1.73m???Normal>=60[facility] on above: Order Comment: Specimen Type: BLOOD SPECIMENOrdering Facility: [facility] Address:[address] [place], [place] [address]Result Comment: Estimated Glomerular Filtration Rate (eGFR) is calculated using the 2020 CKD-EPI cre atinine equation. This equation utilizes serum creatinine, sex, and age as parameters. The creatinine assay has traceable calibration to isotope dilution- mass spectrometry. Refer to KDIGO guidelines for clinical interpretation. In patients with unstable renal function, e.g. those with acute kidney injury, the eGFR may not accurately reflect actual GFR.Performed By: #### 3040-3, 54935-2, , 2776-10 ####[facility] LABCLIA [id number] [address] [address] [place] AMERICAGlucose [Mass/Vol]256 mg/yUGiqj94-61JxgkekxqrDayton Children's Hospital on above:Order Comment: Specimen Type: BLOOD SPECIMENOrdering Facility: [facility] Address:[address] [place] [address]Result Comment: The [place] Diabetes Association (ADA) provides guidance for cutoff [...] symptoms of hyperglycemia or hyperglycemic crisis, random plasmaglucose results greater than or equal to 200 mg/dL meet the criteria for diagnosis of diabetes.Reference: Standards of Medical Care in Diabetes 2016, [place] [employer] Association. Diabetes Care. 2016.39(Suppl 1). Performed By: #### 3040-3, 93003-6, , 2776-10 ####[facility] LABCLIA [id number] [address] [address] [place] AMERICAPotassium [Moles/Vol]4.6 mmol/LNormal3.7-5.1CRegency Hospital [place] on above:Order Comment: Specimen Type: BLOOD SPECIMENOrdering Facility: [facility] Address:[address] [place], [place] [address]Osrrlcbsk By: #### 3040-3, 96914-9, , 2776-10 ####[facility] LABCLIA [id number] [address] [address] [place] AMERICAProtein [Mass/Vol]5.4 g/dLLow6.3-8.0[facility] on above:Order Comment: Specimen Type: BLOOD SPECIMENOrdering Facility: [facility] Address:[address] [place], [place] [address]Performed By: #### 3040-3, 66321-3, 49367-9, 2777-1 ####[facility] LABCLIA [id number] [place] [address] [place] AMERICASodium [Moles/Vol]139 mmol/VYpaijl078-908BqnxfdvchLima Memorial HospitalComment on above:Order Comment: Specimen Type: BLOOD SPECIMENOrdering Facility: [facility] Address:[address] [place], [place] [address]Performed By: #### 3040-3, 86864-1, 19245-7, 2776-1 ####[facility] LABIA [id number] [place] [address] [place] AMERICAUrea nitrogen [Mass/Vol]17 mg/dL Normal9-24L[facility] HospitalComascension providence hospital on above:Order Comment: Specimen Type: BLOOD SPECIMENOrdering Facility: [facility] Address:[address] [place], [place] [address]Performed By: #### 3040-3, 20054-7, 72922-6, 2776-1 ####[facility] LABIA [id number] [place] [address] [place] AMERICALipase SerPl-cCncon 08-28-2024 Lipase [Catalytic activity/Vol]19 U/VSxsydo38-24MkohczqsvLima Memorial Hospital Comment on above:Order Comment: Specimen Type: BLOOD SPECIMENOrdering Facility: [facility] Address:[address] [place] [address] Performed By: #### 3040-3, 79985-3, 05774-7, 2777-1 ####[facility] LABIA [id number] [place] [address] [place] AMERICAMagnesium SerPl-mCncon 81-97-7237Shbpqlhul [Mass/Vol]1.7 mg/dL Normal1.7-2.3CRegency Hospital [place] on above:Order Comment: Specimen Type: BLOOD SPECIMENOrdering Facility: [facility] Address:[address] [place], [place] [address]Performed By: #### 3040-3, 96778-1, 06035-4, 2777-1 ####[facility] LABIA [id number] [place] [address] [place] AMERICAMicroorganism Spec Culton 18-17-1182Bvhzvjfcdfjxc identified Cx Nom (Unsp spec)CULTURE, FUNGAL: No Fungus isolated after 28 days FUNGAL SMEAR: No fungus seenNormalCRegency Hospital [place]edo on above:Performed By: #### 635-3, 6462-6, 12823-7 ####[facility]ITALIA [id number] [place] [address] [place] OPERATIVE NOon 54-94-3762JKLUVMJQR NONormalLima Memorial HospitalPT panel Coag (PPP)on 04-22-0818ELV Coag (PPP) [Relative time]1.1 {INR}Normal0.9-1.3 [facility] on above:Order Comment: Specimen Type: BLOOD SPECIMENOrdering Facility: [facility] Address:[address] [place], [place] [address]Result Comment: Vitamin K Antagonist (VKA) Therapeutic Range: INR 2 to 3 (Target INR of 2.5)Note: For patients treated with VKA drugs, such as warfarin, the [place] [employer] 2012 Guideline recommends a therapeutic INR range of 2 to 3 (target INR of 2.5). This recommendation inclu deepti high-risk patients with antiphospholipid syndrome with previous arterial or venous thromboembolism, current-generation mechanical or bioprosthetic aortic heart valve replacement.Note: Patients with mechanical aortic valve replacement and additional risk factors for thromboembolic events (atrialfibrillation, previous thromboembolism, LV dysfunction, hypercoagulable conditions) or an older generation mechanical AVR (i.e., ball in-Cage) or any mechanical MVR should have a INR therapeutic range of 2.5 to 3.5 (target INR of 3).Daren GH, et al. Chest 2012, 141:7S-47SNishimura RA, et al. [facility] 2017, 70: 252-289 Performed By: #### 14716-6, 95310-5 ####[facility] LABIA [id number] [place] [address] [place] PT Coag (PPP) [Time]11.9 sNormal9.7-13.0[facility] on above:Order Comment: Specimen Type: BLOOD SPECIMENOrdering Facility: [facility] Address:[address] [place], [place] [address]Performed By: #### 60600-7, 39933-0 ####[facility]ITALIA [id number] [place] [address] [place] AMERICAPhosphate SerPl-mCnc on 95-88-1049Abtugdifq [Mass/Vol]4.1 mg/dLNormal2.7-4.8CRegency Hospital [facility] on above:Order Comment: Specimen Type: BLOOD SPECIMENOrdering Facility: [facility] Address:[address] [place], [place] [address]Performed By: #### 3040-3, 25882-5, 67224-7, 2777-1 ####[facility]ITALIA [id number] [place] [address] [place] [facility] MEMORIAL HOSPITALSTAPHYLOCOCCUS AUREUS AND MRSA SCREEN, PCR, NASALon 08-28-2024S. aureus and MRSA panel NAZ+probe (Nose)Not detectedNormalNot DetectedDayton Children's Hospital on above:Order Comment: Specimen Type: SWABOrdering Facility: [facility] Address: [address] [place], [place] [address]Performed By: #### SAPCR ####[facility] LABIA [id number] [address] AMERICASURGICAL PATHOLOGYon 83-26-3343ZXEF REPORTNoHolzer Health SystemComment on above:Order Comment: Specimen Type: TISSUE SPECIMENOrdering Facility: [facility] Address: [address] [place], [place] [address]Result Comment: Surgical Pathology Report Case: [id number] Provider: Jesus Jacobson MD Collected: 08/28/2024 05:31 PMOrdering Location: Admitting Received: 08/29/2024 03:53 PMPathologist: Lilia Hendricks MDSpecimens: A) - Lymph Node (Specify Site in Comments), retro portal lymph node B) - Pancreaticoduodenectomy (Whipple Procedure)Performed By: #### S ####[facility] LABIA [id number] [address]ETCLINICAL HISTORYNoHolzer Health System Comment on above:Order Comment: Specimen Type: TISSUE SPECIMENOrdering Facility: [facility] Address: [address] [place], [place] [address]Result Comment: Pre-op diagnosis:IPMN (intraductal papillary mucinous neoplasm) [D49.0]Performed By: #### S ####[facility] [id number] [address] DIAGNOSIS COMMENTNoHolzer Health SystemComment on above:Order Comment: Specimen Type: TISSUE SPECIMENOrdering Facility: [facility] Address: [address] [place], [place] [address]Result Comment: -Intraductal papillary mucinous neoplasm (3.9 cm), intestinal type, involving the distal main pancreatic duct and and branch ducts, with focal high-grade dysplasia-No invasive tumor identified in the entirely submitted lesion-Background pancreas with chronic pancreatitis and lobulocentric atrophy-The margins are negative for tumor-Spleen with mild reactive changes-25 benign lymph nodesPerformed By: #### S ####[facility] LABWH[facility] [id number] [address] OF [facility]PITALFINAL DIAGNOSISNormalCRegency Hospital [place] on above:Order Comment: Specimen Type: TISSUE SPECIMENOrdering Facility: [facility] Address: [address] [place], [place] [address]Result Comment: A. Retroportal lymph node, resection-1 benign lymph nodeB. Pancreas, duodenum, bileduct, pancreatoduodenectomy- Intraductal papillary mucinous neoplasm (3.9 cm), intestinal type, withfocal high-grade dysplasia-The margins are negative for tumor-25 benign lymph nodes- See comment Performed By: #### S ####[facility] LABCLIA [id number] [address] PERFORMING LABOhioHealth Grove City Methodist Hospital on above:Order Comment: Specimen Type: TISSUE SPECIMENOrdering Facility: [facility] Address: [address] [place], [place] [address]Result Comment: Diagnostic interpretation performed at [facility], [address] [place] [address] CLIA# [id number] Director: Yakov Gurrola M.D.Performed By: #### S ####[facility] LABCLIA [id number] [address]OSS DESCRIPTIONOhioHealth Grove City Methodist Hospital on above:Order Comment: Specimen Type: TISSUE SPECIMENOrdering Facility: [facility] Address: [address] [place], [place] [address]Result Comment: A. Lymph Node (Specify Site in Comments)Received in formalin designated retroportal lymph node is a clemente- purple lymph node with attached yellow fatty tissue measuring 2.8 x 0.8 x 0.4cm. The lymph node is bisected and totally submitted in 1 cassette.Gross examination performed at [facility], [address] [place] [address] CLIA# [id number] August 30, 2024 5:11 PMB.Pancreaticoduodenectomy (Whipple Procedure)Received in formalin is a Whipple specimen consisting ofa segment of duodenum measuring 22.5 cm in length by 6.5 cm in average circumference, a 1.0 cm in length common bile duct and a 15.0 x 5.0 x 4.5 cm complete pancreas and peripancreatic fat surrounding its head. Per the requisition, blue ink shoemaker the vascular groove surface and yellow ink shoemaker theuncinate margin. The specimen is inked as follows: - Common bile duct, outer surface: Pioneer - Anterior outer surface of pancreas: Red [...] x 1.9 x 1.6 cm well-circumscribed, pancreatic duct- centered, cystic lesion, located at the tail of the pancreas. A gross photograph is taken. The lesion is well-defined, clemente-brown, soft, cystic, and communicates with the main pancreatic duct, grossly appearing to be confined to the pancreas. The lesiondoes not involve the ampulla, common bile duct, duodenum, or spleen. The lesion is located 8 cm cm from the closest surgical margin (common bile duct resection margin). The lesion abuts the posteriorperipancreatic soft tissue resection margin. The remaining surgical [...] red and soft. Malpighian corpuscles are not prominent.Paver Layer sections are submitted as follows:B1: Common bile duct margin, en faceB2: Proximal and distal intestinal resection margins, perpendicular, strategic partnership representative sections - Lesion submitted from distal to proximal in cassettes B3-N76C1-E8: Lesion and anterior peripancreatic soft tissue, totally submittedB7-B10: Lesion and posterior peripancreatic soft tissue, totally ufzuifdjeQ97: Lesion, remaining, totally xgtcckfjwA22: Dilated main pancreatic duct at the body, strategic partnership representative qipzxggE32-S52: Uncinate process, perpendicular, totally bzvnwrdlnR01: Dilated main pancreatic duct at the head,, bile duct, and duodenum, strategic partnership representative cajflamG52-Y42: Vascular groove, perpendicular, totally ompcrhueeW69: Spleen, strategic partnership representative blzojxscT14-L35: 1 possible lymph node per cassette, bisected and totally ziugmbxhdI23: 2 possible lymph nodes, totally gileelcwiS05: 5 possible lymph nodes, totally vtizmienpP84-W29: Peripancreatic adipose tissue for microscopic lymph node identification, totally submittedGross examination performed at [facility], [address] [place] [address] [id number] 09/01/24 11:46 AMPerformed By: #### S ####[facility] LABCLIA [id number] [place] [id number] [place] XR CHEST 1V FRONTAL PORTon [id number] CHEST 1V FRONTAL PORTNormalCTriHealth Bethesda Butler HospitalaPTT PPPon 95-26-3298tIMX Coag (PPP) [Time]21.7 sLow23.0-32.4 [facility] on above:Order Comment: Specimen Type: BLOOD SPECIMENOrdering Facility: [facility] Address:[address] [place], [place] [address]Performed By: #### 50967-5, 98182-7 ####[facility] LABCLIA [id number] [place] [id number] [place] AMERICACB W Auto Differential panel (Bld)on 37-90-5809Uylcvndcd (Bld) [#/Vol]0.04 10*3/uLNormal<0.11CRegency Hospital [facility] on above:Order Comment: Specimen Type: BLOOD SPECIMENOrdering Facility: [facility] Address:[address] [place], [place] [address]Performed By: #### 27088- 8 ####[facility] LABCLIA [id number] [place] [address] [place] AMERICABasophils/100 WBC (Bld)0.6 % NormalDayton Children's Hospital on above:Order Comment: Specimen Type: BLOOD SPECIMENOrdering Facility: [facility] Address:[address] [place], [place] [address]Performed By: #### 80656-4 ####[facility] LABCLIA [id number] [place] [address] [place] AMERICADifferential cell count method Nom (Bld)AutoNormalClevelMercy Memorial Hospital on above:Order Comment: Specimen Type: BLOOD SPECIMENOrdering Facility: [facility] Address:[address] [place], [place] [address]Performed By: #### 47430-3 ####[facility] LABCLIA [id number] [place] [address] [place] AMERICAEosinophils (Bld) [#/Vol]0.04 10*3/uLNormal<0.46[facility] on above:Order Comment: Specimen Type: BLOOD SPECIMENOrdering Facility: [facility] Address:[address] [place], [place] [address]Performed By: #### 22465-8 ####[facility] LABCLIA [id number] [place] [address] [place] Eosinophils/100 WBC (Bld)0.6 %NormalDayton Children's Hospital on above: Order Comment: Specimen Type: BLOOD SPECIMENOrdering Facility: [facility] Address:[address] [place], [place] [address]Performed By: #### 42270- 8 ####[facility] LABCLIA [id number] [place] [address] [place] AMERICAErythrocyte distribution width (RBC) [Ratio]12.5 %Uilhkg90.5-15.0[facility] on above: Order Comment: Specimen Type: BLOOD SPECIMENOrdering Facility: [facility] Address:[address] [place], [place] [address]Performed By: #### 88998- 8 ####[facility] LABIA [id number] [place] [address] [place] AMERICAHematocrit (Bld) [Volume fraction]42.3 %Wnxhyc93.0-51.0[facility] on above:Order Comment: Specimen Type: BLOOD SPECIMENOrdering Facility: [facility] Address:[address] [place], [place] [address]Performed By: #### 98521- 8 ####[facility] LABIA [id number] [place] [address] [place] AMERICAHemoglobin (Bld) [Mass/Vol]13.6 g/dPUqgqyt25.0-17.0[facility] on above:Order Comment: Specimen Type: BLOOD SPECIMENOrdering Facility: [facility] Address:[address] [place], [place] [address]Performed By: #### 61557-0 ####[facility] LABIA [id number] [place] [address] [place] AMERICAImmature granulocytes (Bld) [#/Vol]0.03 10*3/uLNormal<0.10[facility] on above:Order Comment: Specimen Type: BLOOD SPECIMENOrdering Facility: [facility] Address:[address] [place], [place] [address]Performed By: #### 31435- 8 ####[facility] LABIA [id number] [place] [address] [place] AMERICAImmature granulocytes/100 WBC (Bld)0.5 %NormalDayton Children's Hospital on above:Order Comment: Specimen Type: BLOOD SPECIMENOrdering Facility: [facility] Address:[address] [place], [place] [address]Performed By: #### 59257-1 ####[facility] LABCLIA [id number] [place] [address] [place] AMERICALymphocytes (Bld) [#/Vol]1.67 10*3/uLNormal1.00-4.00[facility] on above:Order Comment: Specimen Type: BLOOD SPECIMENOrdering Facility: [facility] Address:[address] [place], [place] [address]Performed By: #### 38614-6 ####[facility] LABIA [id number] [place] [address] [place] AMERICALymphocytes/100 WBC (Bld)25.6 % NormalDayton Children's Hospital on above:Order Comment: Specimen Type: BLOOD SPECIMENOrdering Facility: [facility] Address:[address] [place], [place] [address]Performed By: #### 60710-1 ####[facility] LABIA [id number] [place] [address] [place] AMERICAMCH (RBC) [Entitic mass]28.6 qaAnoqyy68.0-34.0[facility] on above:Order Comment: Specimen Type: BLOOD SPECIMENOrdering Facility: [facility] Address:[address] [place], [place] [address]Performed By: #### 66511-9 ####[facility] LABIA [id number] [place] [address] [place] MCHC (RBC) [Mass/Vol]32.2 g/pPCkngfe28.5-36.0[facility] on above:Order Comment: Specimen Type: BLOOD SPECIMENOrdering Facility: [facility] Address:[address] [place] [address] Performed By: #### 59624-7 ####[facility] LABCLIA [id number] [place] [address] [place] MCV (RBC) [Entitic vol]89.1 hOZewidm41.0-100.0[facility] on above:Order Comment: Specimen Type: BLOOD SPECIMENOrdering Facility: [facility] Address:[address] [place] [address] Performed By: #### 84921-3 ####[facility] LABCLIA [id number] [place] [address] [place] Monocytes (Bld) [#/Vol]0.49 10*3/uLNormal<0.87[facility] on above:Order Comment: Specimen Type: BLOOD SPECIMENOrdering Facility: [facility] Address:[address] [place] [address] Performed By: #### 18771-8 ####[facility] LABCLIA [id number] [place] [address] [place] Monocytes/100 WBC (Bld)7.5 %NormalDayton Children's Hospital on above: Order Comment: Specimen Type: BLOOD SPECIMENOrdering Facility: [facility] Address:[address] [place], [place] [address]Performed By: #### 11685- 8 ####[facility] LABCLIA [id number] [place] [address] [place] AMERICANeutrophils (Bld) [#/Vol]4.25 10*3/uLNormal1.45-7.50[facility] on above:Order Comment: Specimen Type: BLOOD SPECIMENOrdering Facility: [facility] Address:[address] [place], [place] [address]Performed By: #### 52329-7 ####[facility] LABCLIA [id number] [place] [address] [place] AMERICANeutrophils/100 WBC (Bld)65.2 % NormalDayton Children's Hospital on above:Order Comment: Specimen Type: BLOOD SPECIMENOrdering Facility: [facility] Address:[address] [place], [place] [address]Performed By: #### 71351-8 ####[facility] LABCLIA [id number] [place] [address] [place] AMERICANucleated RBC (Bld) [#/Vol]10*3/uLNormal<0.01[facility] on above:Order Comment: Specimen Type: BLOOD SPECIMENOrdering Facility: [facility] Address:[address] [place], [place] [address]Performed By: #### 88833-6 ####[facility] LABCLIA [id number] [place] [address] [place] Nucleated RBC/100 WBC (Bld) [Ratio]0.0 /100 WBCNormalCTriHealth Bethesda Butler Hospital Comment on above:Order Comment: Specimen Type: BLOOD SPECIMENOrdering Facility: [facility] Address:[address] [place] [address] Performed By: #### 14987-6 ####[facility] LABCLIA [id number] [place] [address] [place] Platelet mean volume (Bld) [Entitic vol]9.3 fLNormal9.0-12.7CRegency Hospital [place] on above:Order Comment: Specimen Type: BLOOD SPECIMENOrdering Facility: [facility] Address:[address] [place], [place] [address]Performed By: #### 79121-9 ####[facility] LABIA [id number] [place] [address] [place] Platelets (Bld) [#/Vol]245 10*3/hCFkpkbt519-313FkxrltbjpDayton Children's Hospital on above:Order Comment: Specimen Type: BLOOD SPECIMENOrdering Facility: [facility] Address:[address] [place] [address] Performed By: #### 13930-8 ####[facility] LABCLIA [id number] [place] [id number] [place] RBC (Bld) [#/Vol]4.75 10*6/uLNormal4.20-6.00[facility] on above:Order Comment: Specimen Type: BLOOD SPECIMENOrdering Facility: [facility] Address:[address] [place], [place] [address]Performed By: #### 19397-4 ####[facility] LABCLIA [id number] [place] [address] [place] AMERICAWBC (Bld) [#/Vol]6.52 10*3/uLNormal3.70-11.00[facility] on above:Order Comment: Specimen Type: BLOOD SPECIMENOrdering Facility: [facility] Address:[address] [place], [place] [address]Performed By: #### 18944-5 ####[facility] LABCLIA [id number] [address] OF [facility] HOSPITALCNNURSEon 12-59-8077BXSCPZWZgcyqa [facility] HospitalCNOVon 70-40-3377YEWIAnzcefIucqiszlv [facility] CONFIRM BLOOD TYPEon 82-07-5973MNWZGbljulPxfdnjiegRegency Hospital [place] on above:Order Comment: Specimen Type: BLOOD SPECIMENOrdering Facility: [facility] Address:[address] [place], [place] [address]Performed By: #### CONABO ####[facility] BLOOD BANKCLIA [id number] [place] [address] [place] AMERICARh Nom (Bld)PositiveNormal [facility] on above:Order Comment: Specimen Type: BLOOD SPECIMENOrdering Facility: [facility] Address:[address] [place], [place] [address]Performed By: #### CONABO ####[facility] BLOOD BANKCLIA [id number] [place] [address] [place] AMERICAComprehensive metabolic 2000 panelon 32-02-4993Wbkhmqf [Mass/Vol]4.7 g/dL Normal3.9-4.9CRegency Hospital [place] on above:Order Comment: Specimen Type: BLOOD SPECIMENOrdering Facility: [facility] Address:[address] [place], [place] [address]Performed By: #### 22878-2 ####[facility] LABCLIA [id number] [place] [address] [place] AMERICAALP [Catalytic activity/Vol]108 U/NIamrtr30-650DnebagecjDayton Children's Hospital on above:Order Comment: Specimen Type: BLOOD SPECIMENOrdering Facility: [facility] Address:[address] [place], [place] [address]Performed By: #### 78335-8 ####[facility] LABCLIA [id number] [place] [address] [place] AMERICAALT [Catalytic activity/Vol]35 U/YSdegad32-27UnykfmmsjLima Memorial Hospital Comment on above:Order Comment: Specimen Type: BLOOD SPECIMENOrdering Facility: [facility] Address:[address] [place] [address] Performed By: #### 97170-0 ####[facility] LABCLIA [id number] [place] [address] [place] Anion gap [Moles/Vol]14 mmol/LNormal8-15[facility] on above:Order Comment: Specimen Type: BLOOD SPECIMENOrdering Facility: [facility] Address:[address] [place], [place] [address]Performed By: #### 55488-6 ####[facility] LABCLIA [id number] [place] [address] [place] AMERICAAST [Catalytic activity/Vol]31 U/HIsgpbl47-19AnjanvckeDayton Children's Hospital on above:Order Comment: Specimen Type: BLOOD SPECIMENOrdering Facility: [facility] Address:[address] [place], [place] [address]Performed By: #### 84206- 8 ####[facility] LABCLIA [id number] [place] [address] [place] AMERICABilirubin [Mass/Vol]0.2 mg/dL Normal0.2-1.3CTriHealth Bethesda Butler HospitalComment on above:Order Comment: Specimen Type: BLOOD SPECIMENOrdering Facility: [facility] Address:[address] [place], [place] [address]Performed By: #### 96348-3 ####[facility] LABCLIA [id number] [place] [address] [place] AMERICACalcium [Mass/Vol]9.9 mg/dLNormal8.5-10.2ClevelUNC Medical CenterComascension providence hospital on above:Order Comment: Specimen Type: BLOOD SPECIMENOrdering Facility: [facility] Address:[address] [place], [place] [address]Performed By: #### 30721-1 ####[facility] LABCLIA [id number] [place] [address] [place] AMERICAChloride [Moles/Vol]103 mmol/TRvoiid03-376ZnbkpkiotLima Memorial Hospital Comment on above:Order Comment: Specimen Type: BLOOD SPECIMENOrdering Facility: [facility] Address:[address] [place] [address] Performed By: #### 56181-0 ####[facility] LABCLIA [id number] [place] [id number] [place] CO2 [Moles/Vol]26 mmol/WAxktik08-21HmhxpcuffLima Memorial HospitalComment on above: Order Comment: Specimen Type: BLOOD SPECIMENOrdering Facility: [facility] Address:[address] [place], [place] [address]Performed By: #### 71402- 8 ####[facility] LABCLIA [id number] [place] [address] [address] [place] AMERICACreatinine [Mass/Vol]1.10 mg/dL Normal0.73-1.22[facility] on above:Order Comment: Specimen Type: BLOOD SPECIMENOrdering Facility: [facility] Address:[address] [place], [place] [address]Performed By: #### 34318-9 ####[facility] LABCLIA [id number] [place] [address] [place]ICACreatinine and Glomerular filtration rate.predicted panel (S/P/Bld)80 mL/min/1.73m???Normal>=60[facility] on above:Order Comment: Specimen Type: BLOOD SPECIMENOrdering Facility: [facility] Address:[address] [place], [place] [address]Result Comment: Estimated Glomerular Filtration Rate (eGFR) is calculated using the 2020 CKD-EPI creatinine equation. This equation utilizes serum creatinine, sex, and age as parameters. The creatinine assay has traceable calibration to isotope dilution-mass spectrometry. Refer to KDIGO guidelines for clinical interpretation. In patients with unstable renal function, e.g. those with acute kidney injury, the eGFR may not accurately reflect actual GFR.Performed By: #### 01432-1 ####[facility] LABCLIA [id number] [place] [address] [place] AMERICAGlucose [Mass/Vol]164 mg/hLHize44-99EzejgywyjDayton Children's Hospital on above:Order Comment: Specimen Type: BLOOD SPECIMENOrdering Facility: [facility] Address:[address] [place], [place] [address]Result Comment: The [place] Diabetes Association (ADA) provides guidance for cutoff [...] unequivocal hyperglycemia, results should be confirmed by repeattesting. In a patient with classic symptoms of hyperglycemia or hyperglycemic crisis, random plasmaglucose results greater than or equal to 200 mg/dL meet the criteria for diagnosis of diabetes.Reference: Standards of Medical Care in Diabetes 2016, [place] [employer] Association. Diabetes Care. 2016.39(Suppl 1).Performed By: #### 35330-6 ####[facility] LABCLIA [id number] [place] [address] [place] AMERICAPotassium [Moles/Vol]4.1 mmol/LNormal3.7-5.1CTriHealth Bethesda Butler Hospital Comment on above:Order Comment: Specimen Type: BLOOD SPECIMENOrdering Facility: [facility] Address:[address] [place] [address] Performed By: #### 12130-9 ####[facility] LABIA [id number] [place] [address] [place] Protein [Mass/Vol]7.2 g/dLNormal6.3-8.0L[facility] HospitalComment on above:Order Comment: Specimen Type: BLOOD SPECIMENOrdering Facility: [facility] Address:[address] [place], [place] [address]Performed By: #### 05233-6 ####[facility] LABIA [id number] [place] [address] [place]ICASodium [Moles/Vol]143 mmol/AOgikgw343-866CzsvrhgvrLima Memorial HospitalComment on above:Order Comment: Specimen Type: BLOOD SPECIMENOrdering Facility: [facility] Address:[address] [place], [place] [address]Performed By: #### 09478-4 ####[facility] LABIA [id number] [place] [address] [place] AMERICAUrea nitrogen [Mass/Vol]15 mg/dL Normal9-24L[facility] Memorial HospitalComment on above:Order Comment: Specimen Type: BLOOD SPECIMENOrdering Facility: [facility] Address:[address] [place], [place] [address]Performed By: #### 59020-1 ####[facility] LABCLIA [id number] [place] [address] [place] AMERICAECG COMPLETEon 99-17-2424XKN COMPLETENormalCadena health systemand Alleghany HealthHISTORY PHYSICALon 71-65-0814HXPDWZU PHYSICALNormalCadena health systemand Alleghany HealthTYPE AND SCREEN,30 DAYon 80-64-3700SQOCQpbqqnRnysbxqfg Clinic ClevelandComascension providence hospital on above:Order Comment: Specimen Type: BLOOD SPECIMENOrdering Facility: [facility] Address:[address] [place], [place] [address]Performed By: #### [id number] ####CC [facility] BLOOD BANKCLIA [id number] [address] STATES OF [facility] HOSPITALRh Nom (Bld) PositiveNormalCRegency Hospital [place] on above:Order Comment: Specimen Type: BLOOD SPECIMENOrdering Facility: [facility] Address:[address] [place], [place] [address]Performed By: #### [id number] ####CC [facility] BLOOD BANKCLIA [id number] [address] STATES OF AMERICAXR CHEST 2V FRONTAL/LATon 74-04-9121OA CHEST 2V FRONTAL/LATNormal [facility] HospitalXR Chest PA and Lateralon 40-14-5537PUYLFONJQG: No acute disease identified in the lungs or mediastinum. Little interval change since 01/31/2024. [employer] Supervisor: PSCB Transcribe Date/Time: Aug 22 2024 4:29P Dictated by : GEE LITTLEJOHN MD This examination was interpreted and the report reviewed and electronically signed by: GEE LITTLEJOHN MD on Aug 22 2024 4:32PM [facility] DIVISION OF RADIOLOGY* * *Final Report* * * DATE OF [...] been applied to the sternum. DIVISION OF RADIOLOGYProvider, [facility] [place] - 08/22/2024 * * *Final Report* * [...] or mediastinum. Little interval change since 01/31/2024. [employer] Supervisor: PSCB Transcribe Date/Time: Aug 22 2024 4:29P Dictated by : GEE LITTLEJOHN MD This examination was interpreted and the report reviewed and electronically signed by: GEE LITTLEJOHN MD on Aug 22 2024 4:32PM EST [facility] HospitalRadiology Study observation (narrative)[facility] HospitalXR Chest PA and LateralOrdered By: Ccf Provider on 76-77-0477Ulhspyjdj ClinicXR Ribs - left Views and Chest PAon 52-02-8408Gb acute abnormalities seen in the chest or left ribs [facility] CONSOLIDATEDEXAMINATION: 5 XRAY VIEWS OF THE LEFT RIBS WITH FRONTAL XRAY VIEW OF THE CHEST 08/08/2024 1:42 pm COMPARISON: 03/17/2024 HISTORY: ORDERING SYSTEM PROVIDED HISTORY: fall/injury TECHNOLOGIST PROVIDED HISTORY: fall/injury FINDINGS: Chest: Heart size stable. No acute airspace disease. No pneumothorax. No pleural effusion. No pulmonary vascular congestion or edema. Left ribs: No fracture. No destructive bony abnormality. [facility] Lauri Norris MD - 08/08/2024 EXAMINATION: 5 XRAY VIEWS [...] seen in the chest or left ribs [facility] CenterRadiology Study observation (narrative)[facility] HealthSOL EL[facility]IRS [facility] HospitalXR Ribs - left Views and Chest PAOrdered By: Lauri Billy on 08-08-2024 [facility] [employer] Work Phone: cbc with Auto Differentialon 19-63-6501Lfzcpqlsq (Bld) [#/Vol]0.04 10*3/uLBon [facility] HospitalBasophils/100 WBC (Bld)1 %0 - 2 %[facility] CenterEosinophils (Bld) [#/Vol]0.07 10*3/uLBon [facility] HospitalEosinophils/100 WBC (Bld)1 %1 - 4 %[facility] [employer] SolutionsErythrocyte distribution width (RBC) [Ratio]12.4 %11.8 - 14.4 %[facility] Hematocrit (Bld) [Volume fraction]41.8 %40.7 - 50.3 %[facility] Hemoglobin (Bld) [Mass/Vol]14.1 g/dL13.0 - 17.0 g/dLBon [facility] Hospitaly Health Immature granulocytes (Bld) [#/Vol]0.03 10*3/uLBon Secours Promed[facility] Fostoria Community HospitalImmature granulocytes/100 WBC (Bld)0 %0[facility]cy HealthLymphocytes/100 WBC (Bld) 30 %24 - 43 %[facility] HealthLymphocytes/100 WBC (Bld)2.68 %[facility] CenterH (RBC) [Entitic mass]28.8 pg25.2 - 33.5 pgBon Secours [facility] CenterHC (RBC) [Mass/Vol]33.7 g/dL28.4 - 34.8 g/dLBon Secours [facility] CenterV (RBC) [Entitic vol]85.5 fL82.6 - 102.9 fLBon Secours [facility] HealthMonocytes/100 WBC (Bld)8 %3 - 12 %[facility] HealthMonocytes/100 WBC (Bld)0.67 %[facility] HospitalNeutrophils/100 WBC (Bld)60 %36 - 65 %[facility] HospitalNucleated RBC/100 WBC (Bld) [Ratio]0.0 %0.0 per 100 WBCBon Secours [facility] HealthPlatelet mean volume (Bld) [Entitic vol]9.1 fL8.1 - 13.5 fLBon Secours [facility] HealthPlatelets (Bld) [#/Vol]283 10*3/uLBon [facility] HealthRBC (Bld) [#/Vol]4.89 10*6/uL4.21 - 5.77 m/uLBon SecPremier Health [facility] Hospital SouthSegmented neutrophils/100 WBC (Bld)5.39 %[facility] HospitalWBC other (Bld) [#/Vol] 8.9[facility] SecOur [facility] HealthComprehensive Metabolic Panel on 88-05-4123Qcvvgzc [Mass/Vol]4.5 g/dL3.5 - 5.2 g/dLBon Secours [facility] Albumin/Globulin [Mass ratio]1.8 {ratio}1.0 - 2.5[facility] HospitalALP [Catalytic activity/Vol]100 U/L40 - 129 U/LBon [facility] Mercy HealthALT [Catalytic activity/Vol]37 U/L10 - 50 U/LBon [facility] HealthAnion gap [Moles/Vol]12 mmol/L9 - 16 mmol/LBon [facility]ours Mercy HealthAST [Catalytic activity/Vol]29 U/L10 - 50 U/LBon [facility] HealthBilirubin [Mass/Vol]0.3 mg/dL0.00 - 1.20 mg/dLBon Secours Mercy HealthCalcium [Mass/Vol]10.1 mg/dL8.6 - 10.4 mg/dLBon Secours Mercy HealthChloride [Moles/Vol]100 mmol/L98 - 107 mmol/L [facility] HealthCO2 [Moles/Vol]26 mmol/L20 - 31 mmol/LBon [facility] HealthCreatinine [Mass/Vol]1.1 mg/dL0.70 - 1.20 mg/dLBon Secours [facility] Health Est, Glom Filt Rate76- PINFBon Secours Ashtabula County Medical Centery HealthComment on above: These results are not intended [...] therapy that affects renal tubular secretion. Glucose [Mass/Vol]100 mg/fPGvxw69 - 99 mg/dLBon Secours Mercy HealthPotassium [Moles/Vol]4.1 mmol/L3.7 - 5.3 mmol/LBon Secours Mercy HealthProtein [Mass/Vol] 7.0 g/dL6.6 - 8.7 g/dLBon Secours Mercy HealthSodium [Moles/Vol]138 mmol/L136 - 145 mmol/LBon [facility]ours Mercy HealthUrea nitrogen [Mass/Vol]10 mg/dL6 - 20 mg/dL [facility] HealthUrea nitrogen/Creatinine [Mass ratio]9 mg/mg9 - 20[facility] HealthLactic Acidon 86-41-8654Zhfrqtx (BldV) [Moles/Vol]1.2 mmol/L 0.5 - 2.2 mmol/LBon [facility] Hospitalbecca [facility] HealthLipaseon 48-03-0254Tlorgs [Catalytic activity/Vol]101 U/LHigh13 - 60 U/LBon [facility] Hospitalbecca [facility] HospitalNo Panel Informationon 49-75-4817Yujvuwoveaximo and review of laboratory resultsAbnormalMartinsville Memorial Hospitalbecca [facility]uchulabecca [facility]cy[facility] HospitalEGD Study observation Narrativeon 68-85-1656Yusuprxra ClinicRadiology Study observation (narrative)[facility] HospitalGLUCOSE, BLOOD (POC)on 57-11-9056Bzvqzen [Mass/Vol] 101 mg/lUTkivqvcy21 - 99 mg/dLMercy Health West HospitalComment on above: Location:[address], [facility] The Accu-Chek Inform II glucose meter has [...] above situations. Interpretation and review of laboratory resultsAbnoMercy Health Lorain HospitalGlucose [Mass/Vol]110 mg/dBLaqtccmo67 - 99 mg/dLMercy Health West HospitalComment on above:Location:[address], [facility] The Accu-Chek Inform II glucose meter has [...] above situations. Interpretation and review of laboratory resultsAbnormalCBrecksville VA / [facility] With Reflex Ft4on 78-70-6267CVC Qn0.85 m[IU]/LBON [facility] HOSPITALBON [facility]36on 72-98-610717Mu called back in and said that the lab told him that the results will be done in an hour and he would like Dr Rowan to call him with results and pt stated that he called Dr Davies and they told him that the results will go to Dr Aponte and he needs to call him with results please advisSouth County HospitalrmalUniAdena Regional Medical Center36Upon learning that pt follows with Dr. Davies for GI care, I called and informed him that Dr. Davies (who ordered the tests) is the one to go over the results with him. Pt indicated understanding and said he would call Dr. Davies immediately.[facility]36Patient called back looking for an update. I did inform patient that it does look like we just recently received results. Patient would like the doctor to call him with results from the biopsy. Please advise.[facility] HospitalTelephoneon [id number] Thomas Petty 1970 M Date Provider Department Center 07/08/2024 CHAI ABDALLA [facility] No family history on fileNormKindred Hospital DaytonniAdena Regional Medical Center36on 46-48-774877Wg Dr. Aponte, This patient is very anxious to speak to you. Can I tell him when he can expect to hear from you? JaneNormalUniAdena Regional Medical Center36Pt called in again regarding lab results. He [...] what can be done to help with thatSt. [facility]36Patient called to go over test results. Patient was informed that test results haven't come in yet and the doctor needs to review them once the results are in. Patient would like a call once the results are in.[facility]36Pt called in again is very concerned and worried about biopsy results and would like to know if they are in . Advised pt they are still in process. Pt would like a call back as soon as possibleCleveland Clinic Medina Hospital36 on [phone] called in, is requesting a call to go over biopsy results once they've been reviewed. Confirmed patients phone number on file.[facility] HospitalTelephoneon [phone] Thomas Petty 1970 M Date Provider Department Center 07/02/2024 375-LUIS F APONTE [facility] GI [facility] No family history on fileNormKnox Community HospitalHISTOLOGY - TISSUE EXAMon [id number] AP CASE REPORTNormKnox Community HospitalComment on above:Result Comment: Surgical Pathology Case: [id number] Authorizing Provider: Luis F Aponte MD Collected: 06/26/2024 1554 Ordering Location: [facility] Received: 06/27/2024 0811 [facility] Endoscopy Pathologist: Maritza Box MD Specimens: A) - Small Intestine, Duodenum, duodenal bx r/o celiac B) - Distal Esophagus, distal esophagus 35 bx r/o dysplagia C) - Distal Esophagus, distal esophageal bx 33 r/o dysplagiaPerformed By: #### [id number] ####[facility] (BEAKER)[address] [place], [place] [address]VGS AP CLINICAL INFORMATIONOrder DiagnosesNormalUniAdena Regional Medical Center Comment on above:Result Comment: K86.2 - Pancreatic cyst [ICD-10-CM] R93.5 - Abnormal CT of the abdomen [ICD-10-CM]Performed By: #### [id number] ####[facility] (BEAKER)[address] [place], [place] [address]GWM AP GROSS DESCRIPTIONNormalUniAdena Regional Medical CenterComment on above:Result Comment: A. Small Intestine, Duodenum. Received in formalin labeled Thomas Herrerabrook, duodenal bx r/o celiac, are 5 pieces of clemente-pink, irregular mucosal tissue ranging from 0.2 cm to 0.4 cm in greatest dimension. The specimen is submitted in toto in 1 cassette. Jordan Styles Pathologists' Claim Processor Student B. Distal Esophagus. Received in formalin labeled Erniemaura Herrerabrook, distal esophagus 35 bx r/o dysplagia, are 3 pieces of clemente-pink, irregular mucosal tissue ranging from 0.2 cm to 0.4 cm in greatest dimension. The specimen is submitted in toto in 1 cassette. Sukumar Flynn' Claim Processor Student C. Distal Esophagus. Received in formalin labeled Erniemaura Herrerabrook, distal esophageal bx 33 r/o dysplagia, are 2 pieces of clemente-pink, irregular mucosal tissue each measuring 0.3 cm in greatest dimension. The specimen is submitted in toto in 1 cassette. Sukumar Flynn' Claim Processor StudentPerformed By: #### [id number] ####[facility] (BEAKER)[address] [facility] [place], [place] [address]NSQ AP MICROSCOPIC DESCRIPTIONMicroscopic examination performed.[facility] HospitalComment on above:Performed By: #### [id number] ####[facility] (BEAKER)[address] [place], [place] [address]IGV AP REPORT FINAL DIAGNOSIS NARRATIVENormalUniversCherrington HospitalComment on above: Result Comment: A. Duodenum, biopsy: - No significant pathologic findings in duodenal mucosa B. 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 [facility] HospitalNON-POULTRY GRADER CYTOLOGY - CELLULAR EXAMon [id number] AP CASE REPORTNormalUniversCherrington HospitalComment on above:Result Comment: Non-gynecologic Cytology Case: [id number] Authorizing Provider: Luis F Aponte MD Collected: 06/26/2024 1624 Ordering Location: [facility] Received: 06/27/[address] [facility] Pathologist: Kalpana Ventura MD Specimen: Pancreas, Tail, pancreatic tail FNAPerformed By: #### [id number] ####[facility] (BEAKER)[address] [place], [place] [address]NDN AP CLINICAL INFORMATIONOrder DiagnosesNormalUniversCherrington HospitalComment on above:Result Comment: K86.2 - Pancreatic cyst [ICD-10-CM] R93.5 - Abnormal CT of the abdomen [ICD-10-CM]Performed By: #### [id number] ####[facility] (BEAKER)[address] [place], [place] [address]QMM AP DIAGNOSIS COMMENT ForbesUnZanesville City HospitalComascension providence hospital on above:Result Comment: A. The specimen is scantly cellular. While no evidence of high grade dysplasia is id entified, very few groups of cyst lining epithelium are present in the sample for evaluation. In addition, cyst fluid chemistries could not be performed. Clinical and endoscopic correlation is suggested.Performed By: #### [id number] ####[facility] (BEAKER)[address] [facility] [place], [place] [address]LXV AP GROSS DESCRIPTION6 air-dried slides, 3 alcohol-fixed slides, 30 mL CytoLyt with clear, colorless fluid.[facility] HospitalComment on above: Performed By: #### [id number] ####[facility] ([facility]EDIGN[facility])[address] [facility] [place], [place] [address]EFV AP INTRAOPERATIVE CONSULTATIONNormalUniAdena Regional Medical CenterComment on above:Result Comment: A. Pancreas, Tail. Rapid on-site evaluation was performed by Kalpana Ventura MD. The material examined during rapid on-site evaluation was deemed adequate for diagnosis. Pass #1: Adequate Pass #2: Adequate Pass #3: Defer *Only select material is examined during the on-site evaluation. Final diagnosis is pending the review of all material submitted.*Performed By: #### [id number] ####[facility] ([facility]EDIGN[facility])[address] [place], [place] [address]RVY AP REPORT FINAL DIAGNOSIS NARRATIVENovant Health Mint Hill Medical CenterniAdena Regional Medical CenterComascension providence hospital on above:Result Comment: A. Pancreas, tail, EUS-guided fine needle aspiration: - Neoplastic mucinous cyst, favor an intraductal papillary mucinous neoplasm (IPMN). - No high grade dysplasia identified. - See comment. Performed By: #### [id number] ####[facility] ([facility])[address] [place] [address] POCT GLUCOSE METER UNSOLICITED RESULTSon 96-61-0305Husnonf [Mass/Vol]86 mg/dL Doaslf14-787DlcnpdalvzZanesville City HospitalComascension providence hospital on above:Order Comment: Waived Testing in the ED is performed under the ED CLIA certificate #[id number]. Result Comment: ibsaw6Ieurmjzfc By: #### [id number] ####[facility] ([facility])[address] [place], [place] [address]Akcm for Procedureon 44-47-4142Iepc for [id number] Thomas Petty 1970 M Date Provider Department Center 06/26/2024 LUIS F [facility] PREOP [facility] No family history on fileNormalUniversCherrington HospitalTelephoneon [id number] Holbrook,Christopher 1970 M Date Provider Department Center 06/10/2024 CHAI ABDALLA [facility] No family history on fileNormalUniversity of Covenant Medical CenterTelephoneon [id number] Thomas Petty 1970 M Date Provider Department Center 05/30/2024 CHAI ABDALLA [facility] No family history on fileNormalUniversity of Covenant Medical CenterBASIC METABOLIC PANLon 75-55-0973Elfhj gap [Moles/Vol]11 mmol/LNormal5-15[facility] HospitalComment on above:Performed By: #### 718-7, PLTCT, 94226-4, 15720- 7, BMP, 3040-3, LIVR, 89889-1 #### [facility] ([id number]) [address], [address] [place], [place] [address]Erlqljt [Mass/Vol]9.0 mg/dLNormal8.5-10.5Pro[facility] Memorial HospitalComment on above:Performed By: #### 718-7, PLTCT, 02153-7, 86145-1, BMP, 3040-3, LIVR, 40744-7 #### [facility] ([id number]) [address], [address] [place], [place] [address]Awfxlgvy [Moles/Vol]106 mmol/WKbzbzl33-253IzdFvjtgc [place] HospitalComment on above:Performed By: #### 718-7, PLTCT, 27446-4, 74805-2, BMP, 3040-3, LIVR, 73046-0 #### [facility] ([id number]) [address], [address] [place], [place] [address]TZ8 [Moles/Vol]25 mmol/DYhpyrc93-47ZzmKopvfd [facility] Comment on above:Performed By: #### 718-7, PLTCT, 31789-5, 09224-9, BMP, 3040-3, LIVR, 72662-2 #### [facility] ([id number]) [address], [address] [place], [place] [address]Tejtyzavrx [Mass/Vol]1.23 mg/dLNormal0.60-1.30ProMedina HospitalComment on above:Result Comment: METHOD TRACEABLE TO IDMS STANDARD Performed By: #### 718-7, PLTCT, 30059-6, 70429-7, BMP, 3040-3, LIVR, 09931-8 #### [facility] ([id number]) [address], [address] [place], [place] [address]CKK/1.73 sq M.predicted among non-blacks MDRD (S/P/Bld) [Vol rate/Area]70 mL/min/{1.73_m2}Normal>59ProMedina HospitalComment on above: Result Comment: Reported eGFR is based on the CKD-EPI 2020 equation that does not use a race coefficient.Performed By: #### 718-7, PLTCT, 47760-6, 65961-9, BMP, 3040-3, LIVR, 45717-8 #### [facility] ([id number]) [address], [address] [place], [place] [address]Wreglfu [Mass/Vol]114 mg/gPLxye66-40LyfUewbpfMedina Hospital Comment on above:Performed By: #### 718-7, PLTCT, 87619-9, 68343-5, BMP, 3040-3, LIVR, 90423-1 #### [facility] ([id number]) [address], [address] [place], [place] [address]Jzhsndyep [Moles/Vol]3.6 mmol/LNormal3.5-5.0ProMedina HospitalComment on above:Performed By: #### 718-7, PLTCT, 60040-4, 40272-9, BMP, 3040-3, LIVR, 49815-3 #### [facility] ([id number]) [address], [address] [place], [place] [address]Ikeuav [Moles/Vol]142 mmol/HWqdrqv982-623YecGomqii [facility] HospitalComment on above:Performed By: #### 718-7, PLTCT, 35399-2, 48267-3, BMP, 3040-3, LIVR, 95288-5 #### [facility] ([id number]) [address], [address] [place], [place] [address]Kbhn nitrogen [Mass/Vol]15 mg/dLNormal5-23[facility] HospitalComment on above:Performed By: #### 718-7, PLTCT, 68673-9, 34300-6, BMP, 3040-3, LIVR, 17617-9 #### [facility] ([id number]) [address], [address] [place], [place] [address]CCG AND AUTO DIFFon 48-18-6340ZYAOUCHN BASOPHIL0.0 X10E9/LNormal 0.0-0.2[facility] HospitalComment on above:Performed By: #### 22089-1, CBCA #### [facility] ([id number]) [address], [address] [place], [place] [address]XMENTSUW NEUTROPHIL4.2 X10E9/LNormal1.5-6.6ProSelect Medical [facility] Clinic Rehabilitation Hospital, Beachwoodca [facility] Ridge HospitalComment on above:Performed By: #### 36431-3, CBCA #### [facility] ([id number]) [address], [address] [place], [place] [address]Qyrsvowtm/100 WBC (Bld)0.4 %NormalProBethesda North Hospital Hospital Comment on above:Performed By: #### 85511-7, CBCA #### [facility] ([id number]) [address], [address] [place], [place] [address]Sumilonukza (Bld) [#/Vol]0.1 10*3/uLNormal0.0-0.4ProSelect Medical [facility] Hospital, Beachwoodca [facility] HospitalComment on above:Performed By: #### 47072-2, CBCA #### [facility] ([id number]) [address], [address] [place], [place] [address]Zmdmbvyejmu/100 WBC (Bld)1.1 %NormalProBethesda North Hospital Hospital Comment on above:Performed By: #### 06632-8, CBCA #### [facility] ([id number]) [address], [address] [address]Tjcwtmfvcyj distribution width (RBC) [Ratio]12.5 %Normal 11.5-15.0ProBethesda North Hospital HospitalComment on above:Performed By: #### 27689-1, CBCA #### [facility] ([id number]) [address], [address] [address]Imszitokgg (Bld) [Volume fraction]36.9 %Ice69-91XjuHxlcjt [facility] HospitalComment on above:Performed By: #### 40958-5, CBCA #### [facility] ([id number]) [address], [address] [address]Zkboxyxybw (Bld) [Mass/Vol]12.6 g/dLLow13.0-17.0ProSelect Medical [facility] Hospital, Beachwoodca [facility] HospitalComment on above:Performed By: #### 86267-5, CBCA #### [facility] ([id number]) [address], [address] [place] [address]Wncmkyfshln (Bld) [#/Vol]2.6 10*3/uLNormal1.0-3.5[facility] HospitalComment on above:Performed By: #### 93394-5, CBCA #### [facility] ([id number]) [address], [address] [place], [place] [address]Kshfszhxrdv/100 WBC (Bld)34.5 %NormalMercy Memorial Hospitalca [facility] Comment on above:Performed By: #### 86803-5, CBCA #### [facility] ([id number]) [address], [address] [place], [place] [address]UOX (RBC) [Entitic mass]28.9 imKmyccy93-46LojHthpem Carolina HospitalComment on above:Performed By: #### 11621-5, CBCA #### [facility] ([id number]) [address], [address] [place], [place] [address]GAPQ (RBC) [Mass/Vol]34.2 g/pDVwphbw15-77IyrVzxaks Carolina HospitalComment on above:Performed By: #### 80719-9, CBCA #### [facility] ([id number]) [address], [address] [place], [place] [address]VIQ (RBC) [Entitic vol]85 dWFbijjb78-187JfoEijnym [facility] HospitalComment on above:Performed By: #### 72058-8, CBCA #### [facility] ([id number]) [address], [address] [place], [place] [address]Irxxvdvwn (Bld) [#/Vol]0.7 10*3/uLNormal0-0.9Pro[facility] HospitalComment on above:Performed By: #### 15712-7, CBCA #### [facility] ([id number]) [address], [address] [place], [place] [address]Dmkuajwvj/100 WBC (Bld)9.4 %NormalMercy Memorial Hospitalca [facility] Comment on above:Performed By: #### 54530-0, CBCA #### [facility] ([id number]) [address], [address] [place], [place] [address]Hhhmrrcxloc/100 WBC (Bld)54.6 %NormalMercy Memorial Hospitalca [facility] Comment on above:Performed By: #### 21733-3, CBCA #### [facility] ([id number]) [address] [facility], [address] [place], [place] [address]Wchlruzw mean volume (Bld) [Entitic vol]8.8 fLNormal7-12 [facility] HospitalComment on above:Performed By: #### 93707-8, CBCA #### [facility] ([id number]) [address], [address] [place] [address]Wlrmvzjfj (Bld) [#/Vol]216 10*3/aSTmrcfy402-481BrbOzvynz [facility] HospitalComment on above:Performed By: #### 59289-0, CBCA #### [facility] ([id number]) [address] [facility], [address] [place] [address]ECA COUNT4.36 X10E12/LNormal4.10-5.70[facility] Comment on above:Performed By: #### 91914-3, CBCA #### [facility] ([id number]) [address] [facility], [address] [place] [address]BJC (Bld) [#/Vol]7.7 10*3/uLNormal4.0-11.0ProMedina HospitalComment on above:Performed By: #### 07918-8, CBCA #### [facility] ([id number]) [address] [facility], [address] [place], [place] [address]MG Clinical Summaryon 56-47-1103TT Clinical Summary [address] [address] ED Clinical Summary Person Information Name: Thomas Petty [facility] Age: 53 Years : 1970 Sex: Male PCP: Eliana Morales Marital Status: Phone: Race: White Ethnicity: Not or Language: [place] Visit Reason: Abdominal pain; abdominal pain Acuity: 3 Enc Type: Emergency Med Service: Emergency Medicine Arrival: 05/23/2024 16:46:05 Discharge: 05/24/2024 02:20:00 LOS: 000 09:34 Checkin: 05/23/2024 16:46:05 Checkout: 05/24/2024 02:20:00 Dispo Type: Transfer to [facility] Address: [facility] [id number] Provider Notes: History of Present Illness Patient [...] follows GI for?his chronic pancreatitis and he istaking creon.??He had an?EUS done on 05/12?that showed [...] range between ( 27.2 and 40.8 ) [place] Auto: 7.6 % -- Normal range between [...] range between ( 41.0 and 53.0 ) [place] Absolute: 0.7 x10 MCH: 29.0 pg -- [...] 6.5 and 8.1 ) (more content not included)...[facility] CenterED Note-Nursingon 20-61-7621RV Note-Nursingthis RN called report to Fatoumata at [facility]. care transferred via phone to Fatoumata and all her questions answered. pt going to room B759 Lisa PittmanGreene Memorial HospitalGlucose Glucometer (BldC) [Mass/Vol]on 01-45-0596Dkxvgjo [Mass/Vol]108 mg/iGUnph72-70IknXmvssuMedina HospitalGlucose [Mass/Vol]115 mg/fDVdbj55-39IblHqbbazMedina HospitalHEMOGLOBIN on 27-95-5854Sbzitidpit (Bld) [Mass/Vol]12.1 g/dLLow13.0-17.0City HospitalComment on above:Performed By: #### 718-7, PLTCT, 57300-3, 24438-0, BMP, 3040-3, LIVR, 68876-3 #### [facility] ([id number]) [address], [address] [place] [address]SVODFTtr 04-57-2380Qozznw [Catalytic activity/Vol]63 U/LNormal 11-82[facility] HospitalComment on above:Performed By: #### 718-7, PLTCT, 66964-8, 40024-0, BMP, 3040-3, LIVR, 26760-8 #### [facility] ([id number]) [address], [address] [place] [address]EXCZE PANELon 38-11-9808Norxtif [Mass/Vol]3.8 g/dLNormal3.2-5.3 [facility] HospitalComment on above:Performed By: #### 718-7, PLTCT, 07221-7, 78292-9, BMP, 3040-3, LIVR, 32472-5 #### [facility] ([id number]) [address], [address] [place] [address]UHV [Catalytic activity/Vol]74 U/YPpqvmi69-368JapTcevqf Carolina HospitalComment on above:Performed By: #### 718-7, PLTCT, 22740-2, 45348-5, BMP, 3040-3, LIVR, 94771-1 #### [facility] ([id number]) [address], [address] [place], [place] [address]QLT [Catalytic activity/Vol]30 U/LNormal0-40[facility] HospitalComment on above:Performed By: #### 718-7, PLTCT, 21813-0, 56787-6, BMP, 3040-3, LIVR, 38876-4 #### [facility] ([id number]) [address], [address] [place], [place] [address]FPL [Catalytic activity/Vol]21 U/LNormal0-41ProSelect Medical [facility], Beachwoodca [facility] HospitalComment on above:Performed By: #### 718-7, PLTCT, 51645-0, 66164-7, BMP, 3040-3, LIVR, 51611-1 #### [facility] ([id number]) [address] [address], [address] [place], [place] [address]Xewuiquhz [Mass/Vol]0.3 mg/dLNormal0.3-1.2ProMedica Tennessee Ridge HospitalComment on above:Performed By: #### 718-7, PLTCT, 23232-0, 27146-6, BMP, 3040-3, LIVR, 31406-2 #### [facility] ([id number]) [address], [address] [place], [place] [address]Tglfskpqw.direct [Mass/Vol]0.0 mg/dLNormal0.0-0.4ProMedica Tennessee Ridge HospitalComment on above:Performed By: #### 718-7, PLTCT, 11334-9, 63000- 7, BMP, 3040-3, LIVR, 15451-2 #### [facility] ([id number]) [address], [address] [place], [place] [address]Yttejae [Mass/Vol]6.0 g/dLNormal6.0-8.0[facility] Comment on above:Performed By: #### 718-7, PLTCT, 36453-6, 29868-9, BMP, 3040-3, LIVR, 49953-3 #### [facility] ([id number]) [address], [address] [place], [place] [address]QEKBQZUBWjj 65-48-9343Maabhfggp [Mass/Vol]1.8 mg/dLNormal1.8-2.6 [facility] Ridge HospitalComment on above:Performed By: #### 718-7, PLTCT, 59273-0, 34929-9, BMP, 3040-3, LIVR, #### [facility] ([id number]) [address], [address] [place] [address]BRXZXKDE COUNT AND MPVon 22-55-6793Crksjbdl mean volume (Bld) [Entitic vol]7.7 fLNormal7-12ProMedica Carolina HospitalComment on above:Performed By: #### 718-7, PLTCT, 09136-0, 62679-7, BMP, 3040-3, LIVR, #### [facility] ([id number]) [address], [address] [place] [address]Wisrbcqwx (Bld) [#/Vol]222 10*3/qCYvfspd089-982XzlYmlbbp Carolina HospitalComment on above:Performed By: #### 718-7, PLTCT, 58617-1, 58048-0, BMP, 3040-3, LIVR, #### [facility] ([id number]) [address], [address] [place] [address]Qpefmjey I.cardiac High sensitivity method [Mass/Vol]on HOUR TROP I, HIGH SENSITIVITY4 ng/LNormal<21ProMedica Carolina HospitalComment on above:Performed By: #### 09638-0, CBCA #### [facility] ([id number]) [address], [address] [place] [address]BVIMIESW I, HIGH SENSITIVITY3 ng/LNormal<21ProMedica Carolina HospitalComment on above:Performed By: #### 718-7, PLTCT, 42770-4, 14608-3, BMP, 3040-3, LIVR, #### [facility] ([id number]) [address], [address] [place] [address]bMHE Coag (PPP) [Time]on 93-80-1394kYQM Coag (Bld) [Time]34 s Ztgrkv09-65EfrXdlcdk Carolina HospitalComment on above:Performed By: #### 718-7, PLTCT, 26751-3, 17404-9, BMP, 3040-3, LIVR, 80600-3 #### [facility] ([id number]) [address], [address] [place] [address].UA Microscp Aon 91-28-8432AU RBC Quant0 /HPFNormal0-5BCleveland Clinic Medina HospitalComment on above:Performed By: #### .Urinalysis Microscopic Auto #### [facility] [address] [place], [place] [address]ZR WBC Quant0 /HPFNormal0-5BCleveland Clinic Medina Hospital Comment on above:Performed By: #### .Urinalysis Microscopic Auto #### [address] [address].eGFRon 59-74-3350VPZ/1.73 sq M.predicted MDRD (S/P/Bld) [Vol rate/Area]mL/min/{1.73_m2}Normal>=60Lake[facility] Beachwood Medical CenterComment on above:Result Comment: [facility] have implemented the eGFR calculation approach that does not havea coefficient for race and that conforms to the NKF- ASN Task Force Recommendations. Stages of Chronic Kidney [...] maximum of SCr/? or 1 Age = yearsPerformed By: #### CBC #### [address] [address]UPV w/ Diffon 47-26-1237Usakwjwhfqz distribution width (RBC) [Ratio]12.4 %Xoiial83.6-14.8BCleveland Clinic Medina HospitalComment on above: Performed By: #### CBC #### [address] [address]Rdnuveipcz (Bld) [Volume fraction]39.5 %Low41.0-53.0L[facility] Beachwood Medical CenterComment on above:Performed By: #### CBC #### [address] [address]Jmgrtsmjfj (Bld) [Mass/Vol]13.5 g/yBBwftmz49.5-17.5BCleveland Clinic Medina HospitalComment on above:Performed By: #### CBC #### [address] [address]WXQ (RBC) [Entitic mass]29.0 maPwfcwt33.0-35.0L[facility] Beachwood Medical CenterComment on above:Performed By: #### CBC #### [address] [address]PNVA13.1 %Gxwwas03.0-37.0L[facility] Beachwood Medical CenterComment on above:Performed By: #### CBC #### [address] [address]YIA (RBC) [Entitic vol]85.0 hIPtwtzi33.0-100.0L[facility] Beachwood Medical CenterComment on above:Performed By: #### CBC #### [address] [address]Xeryeqtb535 x10*3/snQZrksmk164-289VcgaqfhfwLakehealth Beachwood Medical CenterComment on above:Performed By: #### CBC #### [address] [address]Dxaitikp mean volume (Bld) [Entitic vol]7.4 fLNormal6.7-10.6 [facility] Medical CenterComment on above:Performed By: #### CBC #### [address], [place] [address]CQG6.65 x10*6/mcLNormal4.30-5.80[facility] Comment on above:Performed By: #### CBC #### [address], [place] [address]PCR9.4 x10*3/mcLNormal4.5-11.0[facility] Comment on above:Performed By: #### CBC #### [address], [place] [address]PLBkv 99-33-0319Wynnrrh [Mass/Vol]4.5 g/dLNormal3.2-4.9 [facility] Medical CenterComment on above:Performed By: #### COMP #### [address], [place] [address]Hvyamjr/Globulin [Mass ratio]1.7 {ratio}Normal1.1-2.2BCleveland Clinic Medina HospitalComment on above:Performed By: #### COMP #### [address], [place] [address]Ixi Phos80 IU/ZFyilnr35-52BzitsnmwoLakehealth Beachwood Medical CenterComment on above:Performed By: #### COMP #### [address], [place] [address]TNB [Catalytic activity/Vol]41 U/LPqoefo18-25HqmumekwmLakehealth Beachwood Medical CenterComment on above:Performed By: #### COMP #### [address], [place] [address]Ygaep gap [Moles/Vol]11 mmol/LNormal4-12L[facility] Medical CenterComment on above:Performed By: #### COMP #### [address], [place] [address]UUQ [Catalytic activity/Vol]32 U/JGrtxiq51-11AodhxzgfzLakehealth Beachwood Medical CenterComment on above:Performed By: #### COMP #### [address], [place] [address]Nehh Total0.6 mg/dLNormal0.3-1.2BC[facility] Hospital Comment on above:Performed By: #### COMP #### [address] [address]Xafckfp [Mass/Vol]9.5 mg/dLNormal8.5-10.3BCleveland Clinic Medina HospitalComment on above:Performed By: #### COMP #### [address] [address]Iyusjgxc [Moles/Vol]100 mmol/KEgyzxz90-002TtsduxqsyLakehealth Beachwood Medical CenterComment on above:Performed By: #### COMP #### [address] [address]RA5 [Moles/Vol]26 mmol/EZurtkj78-33BnpjtacbbLakehealth Beachwood Medical CenterComment on above:Performed By: #### COMP #### [address] [address]Eagnvbshwc [Mass/Vol]1.28 mg/dLHigh0.61-1.24L[facility] Medical CenterComment on above:Performed By: #### COMP #### [address] [address]Wqklyve [Mass/Vol]111 mg/tOIfty19-29VvumflzzuLakehealth Beachwood Medical CenterComment on above:Performed By: #### COMP #### [address] [address]Krnksdrdj [Moles/Vol]4.0 mmol/LNormal3.4-4.8BCleveland Clinic Medina HospitalComment on above:Performed By: #### COMP #### [address] [address]Ukdvsgp [Mass/Vol]7.2 g/dLNormal6.5-8.1BCleveland Clinic Medina HospitalComment on above:Performed By: #### COMP #### [address] [address]Wrtjdh [Moles/Vol]137 mmol/GJiyjkg398-335Huryjidxq Valley Health SystemComment on above:Performed By: #### COMP #### [facility] [address] [place], [place] [address]Nzbx nitrogen [Mass/Vol]16 mg/dLNormal8-26L[facility] Medical CenterComment on above:Performed By: #### COMP #### [facility] [address] [place], [place] [address]Rugw nitrogen/Creatinine [Mass ratio]12.5 mg/nlRojdpj69.0-20.0 [facility] Medical CenterComment on above:Performed By: #### COMP #### [address] [address]ZV Abdomen Pelvis w/ IV Contraston 69-12-7943DN Abdomen Pelvis w/ IV ContrastEXAMINATION: CT Abdomen Pelvis w/ IV Contrast HISTORY: Other (please specify), pancreatic cyst? COMPARISON: CT abdomen and pelvis dated 07/21/2020 TECHNIQUE: Following uneventful administration of 100 mL Omnipaque 350 IV contrast, helical imagingof the abdomen and pelvis was performed. Multiplanar [...] cysts are noted. No obstructing nephrolithiasis or hydronephrosis.Normal urinary bladder. Small fat-containing inguinal hernias. Moderate volume formed colonic stool. The appendix is absent. No bowel obstruction or bowel thickening. No free intra- abdominal air or fluid. Negative for pathologically enlarged [...] Is Signed, Electronically Signed in Other Vendor System)Normal [facility] Medical CenterDiff Autoon 38-12-4498Zxex Absolute0.0 x10*3/mcL Normal0.0-0.2BCleveland Clinic Medina HospitalComment on above:Performed By: #### .Automated Diff #### [address] [address]Rmpwgtbbc/100 WBC (Bld)0.4 %Normal0.0-1.2BCleveland Clinic Medina HospitalComment on above:Performed By: #### .Automated Diff #### [address] [address]Gcb Absolute0.1 x10*3/mcLNormal0.0-0.4BCleveland Clinic Medina HospitalComment on above:Performed By: #### .Automated Diff #### [address] [address]Kdivmxedehs/100 WBC (Bld)0.8 %Normal0.0-6.1BCleveland Clinic Medina HospitalComment on above:Performed By: #### .Automated Diff #### [address] [address]Esfqa Absolute2.1 x10*3/mcLNormal1.0-4.8BCleveland Clinic Medina HospitalComment on above:Performed By: #### .Automated Diff #### [address] [address]Phizewqwasa/100 WBC (Bld)22.3 %Low27.2-40.8BCleveland Clinic Medina HospitalComment on above:Performed By: #### .Automated Diff #### [address] [address]Atkt Absolute0.7 x10*3/mcLNormal0.3-1.1BCleveland Clinic Medina HospitalComment on above:Performed By: #### .Automated Diff #### [address] [address]Xmznhqxpg/100 WBC (Bld)7.6 %Normal4.7-13.9BCleveland Clinic Medina HospitalComment on above:Performed By: #### .Automated Diff #### [address] [address]Fmfnwu Absolute6.5 x10*3/mcLNormal1.8-7.7BCleveland Clinic Medina HospitalComment on above:Performed By: #### .Automated Diff #### [address] [address]Daolkc Auto68.9 %Zahkbq52.2-70.8BCleveland Clinic [facility] Hospital Comment on above:Performed By: #### .Automated Diff #### [address] [address]NE Note-Nursingon 00-46-9120YK Note-Nursingpt. requesting water. explained to patient that he is NPO until his CT result comes back in case ofsurgical emergency. pt. then asked for nausea medication and pain medication. Electronically signed by Leonard Sims 05/23/24 20:03 EDTNormGeorgetown Behavioral HospitalED Note-Physicianon 21-54-8724WF Note-PhysicianChief Complaint c/o RUQ pain, hx chronic pancreatitis. [...] has been taking Tramadol at home for paindue to multiple chronic pain issues. The patient [...] in this document, created by the medical assistant instructor for me, accurately reflects the services I [...] _ ? NEXUS C-spine Criteria: _ ? [place] Ankle Rule: _ ? [place] Knee Rule: _ ? Wells Criteria for DVT: _ ? Wells Criteria for PE: _ Discussed with: _ Treatment and Disposition ED Course: 53-year-old male presenting with right upper quadrant/epigastric abdominal pain, history of chronicpancreatitis. Patient was overall well-appearing on exam. He did have mild tenderness palpation of the epigastricregion. Patient's lipase is elevated to 103. Liver enzymes within normal limits. CT scan of the abdomen wasconcerning for pancreatic duct dilatation. Did discuss with on-call GI physician Dr. Olguin who recommended transfer for possible ERCP. Did discuss results with patient. Plan for transfer to [facility] for ERCP. Patient was excepted at [facility], awaiting bed. Shared decision making: _ Code status: _ Assessment/Plan 1. History of pancreatitis Ordered: amitriptyline, 50 mg, Oral, Tab, HS (at bedtime), First Dose: 05/24/24 21:00:00 EDT, Dispense From Location: [facility], 05/23/24 22:15:00 EDT amLODIPine, 2.5 mg, Oral, Tab, Daily, First Dose: 05/24/24 9:00:00 EDT, Dispense From Location: [facility], 05/23/24 22:12:00 EDT atorvastatin, 40 mg, Oral, Tab, Daily, First Dose: 05/24/24 9:00:00 EDT, Dispense From Location: [facility], 05/23/24 22:15:00 EDT clonazePAM, 1 mg, Oral, Tab, HS (at bedtime), First Dose: 05/23/24 22:15:00 EDT, Dispense From Location: [facility], 05/23/24 22:15:00 EDT clonazePAM, 0.5 mg, Oral, Tab, Daily, First Dose: 05/23/24 22:15:00 EDT, Dispense From Location: [facility], 05/23/24 22:15:00 EDT pancrelipase, 6 caps, Oral, Cap-DR, TID, PRN other (see comment), First Dose: 05/23/24 22:15:00 EDT, Dispense From Location: [facility], 05/23/24 22:15:00 EDT ziprasidone, 40 mg, Oral, Cap, HS (at bedtime), First Dose: 05/23/24 22:15:00 EDT, Dispense From Location: [facility], 05/23/24 22:15:00 EDT Complete Blood Count w/ Differential Comprehensive Metabolic Panel 2. Pancreatic duct dilated Ordered: amitriptyline, 50 mg, Oral, Tab, HS (at bedtime), First Dose: 05/24/24 21:00:00 EDT, Dispense From Location: [facility], 05/23/24 22:15:00 EDT amLODIPine, 2.5 mg, Oral, Tab, Daily, First Dose: 05/24/24 9:00:00 EDT, Dispense From Location: [facility], (more content not included)...NormalLakehealth Beachwood Medical CenterLipaseon 00-09-8809Ybfdou Gzz279 IU/AOmki52-92VfdxxoyiwLakehealth Beachwood Medical CenterComment on above:Performed By: #### LIP #### [place], [place] [address]UA w Culture if Indon 38-32-1608Lsika (U)YellowNormalYellow [facility] Medical CenterComment on above:Performed By: #### CBC #### [address] [address]Xukumab Ql (U)NegativeNormalNegativeLakehealth Beachwood Medical CenterComment on above:Performed By: #### CBC #### [address] [address]HC BloodNegativeNormalNegativeLakehealth Beachwood Medical Center Comment on above:Performed By: #### CBC #### [address] [address]FV ClarityClearNormalClearLakehealth Beachwood Medical CenterComment on above:Performed By: #### CBC #### [place] [address]UA GlucoseNormalNormalNegativeLakehealth Beachwood Medical Center Comment on above:Performed By: #### CBC #### [address], [place] [address]EK Leukocyte EsteraseNegativeNormakNegOhio State Health SystemComment on above:Performed By: #### CBC #### [address], [place] [address]UJ NitriteNegativeNormalNegativeLakehealth Beachwood Medical Center Comment on above:Performed By: #### CBC #### [address], [place] [address]LU pH7.4Txsygu1.5 - 7.8BCleveland Clinic Medina HospitalComment on above:Performed By: #### CBC #### [address], [place] [address]FP ProteinNegativeNormakNegOhio State Health System Comment on above:Performed By: #### CBC #### [address], [place] [address]BG SourceClean CatchNormGeorgetown Behavioral HospitalComment on above:Performed By: #### CBC #### [address], [place] [address]WV Spec Grav1.732Uhlpjr3.003-1.035Lake[facility] Beachwood Medical CenterComment on above:Performed By: #### CBC #### [address], [place] [address]HB UrobilinogenNormalNormal0.2 - 1.0Lake[facility] Beachwood Medical CenterComment on above:Performed By: #### CBC #### [address], [place] [address]Ogzbtyikmfjd (U) [Mass/Vol]NegativeNormalNegOhio State Health SystemComment on above:Performed By: #### CBC #### [address], [place] [address]Lp Panel Informationon 29-07-6448Hgty wrist: 1. Mild osteoarthrosis. 2. No acute fracture or dislocation. Left 2nd digit: Possible nondisplaced fracture of the distal aspect of the distal phalanx 2nd digit. Thoracic spine: 1. Evidence of multilevel thoracic vertebroplasty in the midthoracic spine with probable multilevel remote chronic anterior wedging/compression deformities. 2. Thoracic spine spinal stimulator lead wires as above. Kyphosis of the thoracic spine. 3. Jata-fq-mulwqtcs degenerative changes in the thoracic spine. Lumbar spine: 1. Remote vertebroplasty and compression deformity of L3. 2. No acute vertebral body height loss in the lumbar spine. [facility] CONSOLIDATEDEXAMINATION: 3 XRAY VIEWS OF THE LEFT WRIST; [...] adjacent to the lateral right iliac bone. [facility] Miguel Rojas MD - 04/26/2024 EXAMINATION: 3 XRAY VIEWS [...] above. Kyphosis of the thoracic spine. 3. Oeta-nr-flmmqaet degenerative changes in the thoracic spine. Lumbar spine: 1. Remote vertebroplasty and compression deformity of L3. 2. No acute vertebral body height loss in the lumbar spine. [employer]No Panel InformationOrdered By: Miguel Jimenez on 04-26-2024 [employer] Work Phone: XR Finger - left 2 Viewson 30-93-7846Igzuizdbn Study observation (narrative)[facility] Lumbar spine 2 or 3 Viewson 29-82-0788Nkrhgcnro Study observation (narrative)[facility] Thoracic spine 2 Viewson 39-74-3353Cuyupzyun Study observation (narrative)[facility] Wrist - left 3 Viewson 10-67-3482Bllmvoadc Study observation (narrative)[facility] ezeepBecca HEALTHCreatinineon 20-38-2476Fljiscoorb [Mass/Vol]1.1 mg/dL0.7 - 1.2 mg/dLBON [facility] HEALTHEst, Glom Filt Rate80 - PINFBON TRIHEALTH BETHESDA BUTLER HOSPITALComment on above: These results are not intended [...] following therapy that affects renal tubular secretion. [facility] HEALTHBenzodiazepines Screen Ql (U)on 03-26-2024 Benzodiazepines Ql (U)NegativeNoalNEGKettering Memorial Hospital Comment on above:Result Comment: Benzodiazepines screening cut off value = 200 ng/mL This report is intended for use in clinical monitoring or management of patients.Performed By: #### 18392-5 #### [facility] ([id number]) [address] [place] [address], [address] [place], [place] [address]DXF GENERIC ORDERon [id number] NAMEUQNTPPNormOhioHealth Dublin Methodist HospitalComment on above:Performed By: #### CGO #### [facility] ([id number]) [address] [place] [address]MLKZ RESULTSee BelowNormOhioHealth Dublin Methodist HospitalComment on above:Result Comment: NOTE TEST RESULT FLAG UNIT REF.RANGE Morphine Quant, Urine <10 ng/mL <10 Morphine [...] carboxylic acid (THCA) is a metabolite of yquxz-3-xgzbakwpewfimblzbsly which is the main active component of marijuana. Fentanyl, Urine <6 ng/mL <6 Buprenorphine, Ur <20 ng/mL <20 Methadone Urine <16 ng/mL <16 Methadone metabolite Urine <6 ng/mL <6 EDDP is a metabolite of methadone. Note See Below This test is for medical use only. This test was developed and its performance characteristics determined by [facility]'s Solo Stephanie [facility] Pathology and Laboratory Medicine [place] ([facility]). It has not been cleared or approved by the FDA. [facility] is regulated under CLIA as qualified to perform high-complexity testing. This test is used for clinical purposes. It should not be regarded as investigational or for research. Specimen Validity Quality See below Specimen quality results within acceptable limits Specimen Validity Creatinine 14.5 L mg/dL 20.0-300.0 Specimen Validity PH 7.2 4.5-8.0 Specimen Validity Specific Allison 1.005 1.003-1.035 Specimen Validity Oxidants <38 mg/L <200 Specimen Validity Nitrites <50 mg/L <500 Specimen Validity Chromate <10 mg/L <50 Test Performed By: [facility] [address] [place] [address] Mannequin Decorator: Yakov Gurrola III, M.D. [facility] #[id number] By: #### CGO #### [facility] ([id number]) [address] [place] [address]Uvaaacodvz comment Jacinto (Report)on [id number] LAB TEST Sent to reference labNormalProMedica Elyria Memorial HospitalComment on above:Performed By: #### CGO #### [facility] ([id number]) [address] [place] [address]Ynqhn Metabolic Panelon 28-43-9078Uuqit gap [Moles/Vol]11 mmol/L9 - 17 mmol/LBON SECOURS MERCY HEALTHCalcium [Mass/Vol]9.6 mg/dL8.6 - 10.4 mg/dLBON SECOURS MERCY HEALTHChloride [Moles/Vol]98 mmol/L98 - 107 mmol/LBON SECOURS MERCY HEALTHCO2 [Moles/Vol]26 mmol/L20 - 31 mmol/LBON SECOURS MERCY HEALTHCreatinine [Mass/Vol]1.1 mg/dL0.7 - 1.2 mg/dLBON TRIHE[facility] BUT[facility]ER HOSPITALEst, Glom Filt Rate80- PINFBON Zanesville City Hospitalment on above: These results are not intended [...] therapy that affects renal tubular secretion. Glucose [Mass/Vol]132 mg/uACrcr76 - 99 mg/dLBON [facility] Interpretation and review of laboratory resultsAbnormalBON [facility] Potassium [Moles/Vol]4.1 mmol/L3.7 - 5.3 mmol/LBON TRIHEALTH BETHESDA BUTLER HOSPITALSodium [Moles/Vol]135 mmol/L135 - 144 mmol/LBON [facility]ETHESDA BUTLER HOSPITALUrea nitrogen [Mass/Vol]10 mg/dL6 - 20 mg/dLBON TRIHEALTH BETHESDA BUTLER HOSPITALUrea nitrogen/Creatinine [Mass ratio]9 mg/mg9 - 20BON TRIHE[facility] BETHESDA BUTLER HOSPITALBrain Natriuretic Peptideon 50-17-1402Dhucjngpuhv peptide B (Bld) [Mass/Vol]pg/mLNINF - 300 pg/mLSentara Obici Hospital on above: An age-independent cutoff point of 300 pg/ml has a 98% negative predictive value excluding acute heart failure. [facility] CENTERCBC with Auto Differentialon 28-72-3669Efngfymfx (Bld) [#/Vol]0.04 10*3/uLBON [facility] BETHESDA BUTLER HOSPITALBasophils/100 WBC (Bld)1 %0 - 2 %[facility] MED[facility] CENTEREosinophils (Bld) [#/Vol]0.05 10*3/uLBON [facility] BETHESDA BUTLER HOSPITALEosinophils/100 WBC (Bld)1 %1 - 4 %[facility] MEDICAL CENTERErythrocyte distribution width (RBC) [Ratio]12.0 %11.8 - 14.4 %[facility] Hematocrit (Bld) [Volume fraction]38.6 %Low40.7 - 50.3 %[facility] Hemoglobin (Bld) [Mass/Vol]12.8 g/dLLow13.0 - 17.0 g/dLBON [facility] Immature granulocytes (Bld) [#/Vol]0.07 10*3/uLBON [facility]ES[facility] BUTLER HOSPITALImmature granulocytes/100 WBC (Bld)1 %Thhl0ISL [facility] BUTLER HOSPITALInterpretation and review of laboratory resultsAbnormalBON TRIHEALTH BETHESDA BUTLER HOSPITALLymphocytes/100 WBC (Bld)27 %24 - 43 %[facility] MEDICAL CENTERLymphocytes/100 WBC (Bld)2.40 %[facility]OSPITALH (RBC) [Entitic mass]28.8 pg25.2 - 33.5 pgRIVERSIDE TAPPAHANNOCK HOSPITALHC (RBC) [Mass/Vol]33.2 g/dL28.4 - 34.8 g/dLBON MERCY HEALTH ST. JOSEPH WARREN HOSPITALV (RBC) [Entitic vol]86.9 fL82.6 - 102.9 fLRIVERSIDE REGIONAL MEDICAL CENTER Monocytes/100 WBC (Bld)10 %3 - 12 %[facility] CENTERMonocytes/100 WBC (Bld)0.86 %[facility] MED[facility] CENTERNeutrophils/100 WBC (Bld)60 %36 - 65 %[facility] MEDICAL CENTERNucleated RBC/100 WBC (Bld) [Ratio]0.0 %0.0 per 100 WBCRIVERSIDE REGIONAL MEDICAL CENTERPlatelet mean volume (Bld) [Entitic vol]9.2 fL8.1 - 13.5 fL [facility] MEDICAL CENTERPlatelets (Bld) [#/Vol]277 10*3/uLBON TRIHEALTH BETHESDA BUTLER HOSPITALRBC (Bld) [#/Vol]4.44 10*6/uL4.21 - 5.77 m/uLRIVERSIDE REGIONAL MEDICAL CENTER Segmented neutrophils/100 WBC (Bld)5.44 %[facility] MEDICAL CENTERWBC other (Bld) [#/Vol]8.9BON [facility]ITALNo Panel Information on [id number] [facility] & [facility]wood Hospitalable XR Chest AP single viewon 47-36-2722Gz radiographic evidence of acute cardiopulmonary process. MHPN RIS CONSOLIDATEDEXAMINATION: ONE XRAY VIEW OF THE CHEST 03/17/2024 2:11 pm COMPARISON: 01/31/2024 HISTORY: ORDERING SYSTEM PROVIDED HISTORY: chest pain TECHNOLOGIST PROVIDED HISTORY: chest pain FINDINGS: The lungs appear clear. The heart and mediastinal structures appear unremarkable. 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 There is a spinal stimulator in the midthoracic spine. There is no change from prior examination [facility] Ernie Decker MD - 03/17/2024 EXAMINATION: ONE XRAY VIEW [...] No radiographic evidence of acute cardiopulmonary process. [employer]ch[employer] LightingRadiology Study observation (narrative)Enchanted LightingBluffton Regional Medical Centerable XR Chest AP single viewOrdered By: Ernie Gutiérrez on 03-17-2024 [employer] Work Phone: Troponinon 40-85-0584Rxsfdgtv I.cardiac High sensitivity method [Mass/Vol]11 ng/L0 - 22 ng/LBON AdmetricComment on above:High Sensitivity Troponin values cannot be compared with other Troponin methodologies.Enchanted LightingTroponin I.cardiac High sensitivity method [Mass/Vol]11 ng/L0 - 22 ng/LBON [facility]ORIAL HOSPITALAmplify.LAComment on above:High Sensitivity Troponin values cannot be compared with other Troponin methodologies.Benzodiazepines Screen Ql (U)on 39-61-1864Osokiepasvehwmm Ql (U) NegativeNormalNEGProMedica Elyria Memorial HospitalComment on above:Result Comment: Benzodiazepines screening cut off value = 200 ng/mL This report is intended for use in clinical monitoring or management of patients.Performed By: #### [id number] #### [facility] ([id number]) [address], [address] [place], [place] [address]VSV GENERIC ORDERon [id number] NAMEUQNTPP QUANTITATIVE PAIN PANEL, URINENormalProMedica Elyria Memorial HospitalComment on above: Performed By: #### CGO #### [facility] ([id number]) [address] [place] [id number] RESULTSee BelowNormalProSelect Medical [facility] Clinic Rehabilitation Hospital, BeachwoodComment on above:Result Comment: NOTE TEST RESULT FLAG UNIT REF.RANGE Specimen Validity Quality See below Specimen quality results within acceptable limits Specimen Validity Creatinine 16.2 L mg/dL 20.0-300.0 Specimen Validity PH 6.6 4.5-8.0 Specimen Validity Specific Allison 1.005 1.003-1.035 Specimen Validity Oxidants <38 mg/L [...] carboxylic acid (THCA) is a metabolite of vtjsu-2-ujkwdnyyunrwyeqqcohu which is the main active component of marijuana. Fentanyl, Urine <6 ng/mL <6 Buprenorphine, Ur <20 ng/mL <20 Methadone Urine <16 ng/mL <16 Methadone metabolite Urine <6 ng/mL <6 EDDP is a metabolite of methadone. Note See Below This test is for medical use only. This test was developed and its performance characteristics determined by [facility]'s [facility] Pathology and Laboratory Medicine [place] ([facility]PLMT). It has not been cleared or approved by the FDA. [facility] is regulated under CLIA as qualified to perform high-complexity testing. This test is used for clinical purposes. It should not be regarded as investigational or for research. QUANTITATIVE PAIN PANEL, URINE Test Performed By: [facility] [address] [place] [address] Mannequin Decorator: Yakov Gurrola III, M.D. [place] #[id number] By: #### CGO #### [facility] ([id number]) [address] [place] [address]Noexkqbfzs comment Jacinto (Report)on [id number] LAB TEST Sent to reference labNormalProMedica Elyria Memorial HospitalComment on above:Performed By: #### CGO #### [facility] ([id number]) [address] [place] [address]Pujrstr Glucometer (BldC) [Mass/Vol]on 56-33-0533Stzadwo [Mass/Vol]91 mg/gNXotddi09-72WqrGcjmtm [facility] HospitalIronon 24-03-9995Eglc [Mass/Vol]95 ug/dL59 - 158 ug/dLB[facility] Microscopic Urinalysison 44-73-4093Lvdxeexi LM Ql (Urine sed)TRACEAbnormalNone [facility] HEALTHEpithelial cells LM.HPF (Urine sed) [#/Area]NoneB[facility] MERCY HEALTHInterpretation and review of laboratory resultsAbnormalBON [facility] MERCY HEALTHRBC LM.HPF (Urine sed) [#/Area]NoneB[facility] WBC LM.HPF (Urine sed) [#/Area]NoneB[facility] MERCY HEALTHB[facility]ALTHNo Panel Informationon [id number] [facility] HEALTHUrinalysis with Reflex to Cultureon [id number] Ql (U)NegativeNEGATIVEB[facility] MERCY HEALTHClarity (U)ClearClearB[facility]CY HEALTHColor (U)YellowYellowB[facility] MERCY HEALTHGlucose Test strip (U) [Mass/Vol]NegativeNEGATIVE mg/dLB[facility] MERCY HEALTHHemoglobin Auto test strip Ql (U)NegativeNEGATIVEB[facility] MERCY HEALTHInterpretation and review of laboratory resultsAbnormalBON [facility] MERCY HEALTHKetones (U) [Mass/Vol]NegativeNEGATIVE mg/dLB[facility] Leukocyte esterase Test strip Ql (U)NegativeNEGATIVEB[facility] Nitrite Ql (U)NegativeNEGATIVEBON [facility]OURS MERCY HEALTHpH (U)6.0 [pH]5.0 - 9.0B[facility] HEALTHProtein (U) [Mass/Vol]NegativeNEGATIVE mg/dLBON [facility] MERCY HEALTHSpecific gravity (U) [Rel density]Low1.010 - 1.020B[facility] MERCY HEALTHUrobilinogen Qn (U)Normal0.0 - 1.0 EU/dLBON SECOURS MERCY HEALTHBON [facility] MERCY HEALTHVitamin D 25 Hydroxyon 532846-jcxoqieirlqinb D3 [Mass/Vol]80.7 ng/mL29.9 - PINF ng/mLBON [facility]OURS MERCY HEALTHComment on above: Reference Range: Vitamin D status Range Deficiency <20 ng/mL Mild Deficiency 20-30 ng/mL Sufficiency 30-100 ng/mL Toxicity >100 ng/mL Nuclear stress test with myocardial perfusionon 27-23-1525Krvqfhri Diastolic BP 80mmHgBON [facility]OURS MERCY HEALTHBaseline TG99rhaSYL [facility]ALTHBaseline Systolic AF197okJdNCG [facility] HEALTHNuc Stress EF81 %[facility] HEALTHRecovery Stage 1 BP120/74mmHgBON [facility]RS MERCY HEALTHRecovery Stage 1 Phijsecq6jvc:secBON [facility]RS MERCY HEALTHRecovery Stage 1 LU12jaySNZ [facility] HEALTHRecovery Stage 2 Sixdcahy4osn:secBON [facility] MERCY HEALTHRecovery Stage 2 DY02towGDX [facility] HEALTHRecovery Stage 3 Injereeo3szi:secBON [facility] MERCY HEALTHRecovery Stage 3 RB98utdVWR [facility] HEALTHRecovery Stage 4 BP114/68mmHgBON [facility]RS MERCY HEALTHRecovery Stage 4 Iscccebg3axi:secBON [facility] MERCY HEALTHRecovery Stage 4 JZ55ofwCJR [facility] HEALTHStress Diastolic GM17lsDwXWN [facility] HEALTHStress Peak MU314vogKGH [facility] HEALTHStress Percent HR Athyvdjf82 %[facility] HEALTHStress Rate Pressure Mfscugj70706qga*mmHgBON SECOURS MERCY HEALTHStress Systolic JT860zcCtDMZ [facility] HEALTHStress Target QI555ogyQPO [facility] HEALTHECG: Resting ECG demonstrates normal sinus rhythm. Stress [...] Single Photon Emission Computer Tomography (SPECT) study utilizedtomographic imaging/tomography for the tomographic myocardial perfusion imaging [...] The stress end diastolic cavity size is normal.[facility] CV RPACS STRESSBON PHOENIX MEMORIAL HOSPITALMilaap Social [employer] [facility] HOSPITALNuclear stress test with myocardial perfusionon 07-05-2023 Radiology Study observation (narrative)[facility]XR CHEST (2 VW)on [id number] CHEST (2 VW)PROCEDURE: XR CHEST (2 VW) CLINICAL INFORMATION: Cough present for greater than 3 weeks COMPARISON: 07/21/2019 TECHNIQUE: PA and lateral chest x-ray FINDINGS: The cardiomediastinal silhouette appears within normal limits. No focal consolidation, pleural effusion or pneumothorax is seen. No acute osseous abnormalities are demonstrated. Evidence ofprior vertebral augmentation is noted at the T5-T9 levels. IMPRESSION: 1. No acute cardiopulmonary disease. This report has been created using voice recognition software. It may contain minor errors which are inherent in voice recognition technology. Final report electronically signed by Dr. Evan Bhatia on 12/09/2019 2:47 PM Interpreted by: Kp Bhatia MD Signed by: Kp Bhatia MD 12/09/19 Final resultNormalSCorpus Christi Medical Center Bay AreaXR HIP 2-3 VW W PELVIS RIGHTon 72-27-0351GH HIP 2-3 VW W PELVIS RIGHTPROCEDURE: XR HIP 2-3 VW W PELVIS RIGHT [...] with leads extending cephalad to some unidentified location.Several phleboliths are present in the pelvis. IMPRESSION: 1. Small shrapnel fragment. Neurostimulator. 2. Study otherwise unremarkable. This report has been created using voice recognition software. It may contain minor errors which are inherent in voice recognition technology. Final report electronically signed by Dr. Octavio Seymour on 11/17/2019 4:08 PM Interpreted by: Octavio Seymour MD Signed by: Octavio Seymour MD 11/17/19 Final resultNormUniversity Medical CenterXR KNEE RIGHT (MIN 4 VIEWS)on [id number] KNEE RIGHT (MIN 4 VIEWS)PROCEDURE: XR KNEE RIGHT (MIN 4 VIEWS) CLINICAL [...] Signed by: Octavio Seymour MD 11/17/19 Final resultNormalSCorpus Christi Medical Center Bay Area Vital Signs Date TimeVital SignValuePerforming JforpbdfeGnnmmftd95-63-6936 13:00-0500 Diastolic blood hzylezld52 mm[Hg]Octavio Chatterjee MD Work Phone: [facility] [employer] [facility] HospitalBdgiuv82-74-7664 13:00-0500Heart rate67 /minOctavio Chatterjee MD Work Phone: [facility] HospitalDtjyca64-63-0258 13:00-0500 Respiratory rate13 /minThleigh ann Chatterjee MD Work Phone: [facility] HospitalJhxdlp80-52-3595 13:00-6708MwH4% (BldA) [Mass fraction]99 %Octavio Chatterjee MD Work Phone: [facility]GC[facility] HospitalBgthja68-56-1041 13:00-0500Systolic blood vxdfdsha834 mm[Hg]Octavio Chatterjee MD Work Phone: [facility]GC[facility] HospitalKuzado00-72-6156 12:15-0500Body ecdsyqpgbxy64.91 [degF]Octavio Chatterjee MD Work Phone: [facility]GC[facility] HospitalZmkwla52-23-8101 09:15-0500Body gywhze134.8 Tara Chatterjee MD Work Phone: [facility] HospitalFgnccz39-79-5486 09:15-0500Body mass index (BMI) [Ratio]30.42 kg/e0Egpzpqleigh ann Chatterjee MD Work Phone: [facility] HospitalQfwisj07-13-3488 09:15-0500Body .16 kgThleigh ann Chatterjee MD Work Phone: Bon [facility] HospitalGC-[facility] Pharmaceutical [facility] HospitalEfrtsz68-28-4193 18:34-6122GiX3% (BldA) [Mass fraction]93 %Dmitry Tierney MD Work Phone: Bon [employer] [facility] CenterEvocalize Ovqtpi50-15-0941 18:33-0400Diastolic blood rwgyhuvf28 mm[Hg]Dmitry Tierney MD Work Phone: Bon [employer] Umzngi94-16-9215 18:33-0400Systolic blood dfumjusm536 mm[Hg]Dmitry Tierney MD Work Phone: Bon [employer] Ejatkd97-43-1426 17:59-0400Heart rate94 /Bianca Tierney MD Work Phone: bon [employer]08-28-2025 17:59-0400 Respiratory rate19 /minDmitry Tierney MD Work Phone: Bon [employer] Rgiplq27-23-7563 14:55-0400Body devxvp655.8 cmTlucio Tierney MD Work Phone: bon [employer] [facility] CenterEvocalize Djbzkz46-56-8027 14:55-0400Body mass index (BMI) [Ratio]29.7 kg/s0Ayejlyola Tierney MD Work Phone: bon [employer]08-28-2025 14:55-0400Body uvlcsykexph01.1 [degF]Dmitry Tierney MD Work Phone: Bon [employer]08-28-2025 14:55-0400Body aibral22.89 kgThyola Tierney MD Work Phone: Bon [employer]08-09-2025 21:13-0400 Respiratory rate18 /Ángel Graves MD Work Phone: Bon [employer] [facility] CenterPodimetricsZxezfd15-60-5967 15:25-0400Body tfwkgvswbea72 [degF]Luis Alberto Graves MD Work Phone: bon [employer] [facility] CenterPodimetricsNanuuy82-34-5022 15:25-0400Diastolic blood gxktafnc88 mm[Hg]Luis Alberto Graves MD Work Phone: [facility] [employer] SolutionsIzhrsd70-07-5577 15:25-0400Heart rate86 /minChsukumar Graves MD Work Phone: [phone] SolutionsKzhdhq74-51-6018 15:25-9942BvP6% (BldA) [Mass fraction]95 %Luis Alberto Graves MD Work Phone: [facility] [employer] SolutionsTnhwqi50-02-0632 15:25-0400Systolic blood cxaitzut577 mm[Hg]Luis Alberto Graves MD Work Phone: [facility] [employer] SolutionsNdiecr65-66-1137 10:00-1242NgA2% (BldA) [Mass fraction]93 %Jae Baldwin MD Work Phone: [facility] [employer] SolutionsJmdzlk19-26-3159 08:52-0400Body gywali223.8 cmRicholesya Baldwin MD Work Phone: Bon [employer]08-06-2025 08:04-0400Body csppgvbaylg39.59 [degF]Jae Baldwin MD Work Phone: [facility] [employer] SolutionsSseiym62-21-6388 08:04-0400Diastolic blood iqkonrio97 mm[Hg]Jae Baldwin MD Work Phone: [facility] [employer] SolutionsTrhmxt36-18-3956 08:04-0400Heart rate78 /Lubna Baldwin MD Work Phone: [facility] [employer] SolutionsJrmcjh26-34-1554 08:04-0400 Respiratory rate18 /Lubna Baldwin MD Work Phone: [facility] [employer] SolutionsIoevmk55-79-2020 08:04-0400Systolic blood zedrgnws547 mm[Hg]Jae Baldwin MD Work Phone: [facility] [employer] SolutionsJxyhae47-20-4577 04:34-0400Body mass index (BMI) [Ratio]31.19 kg/n8WjybkboJae Baldwin MD Work Phone: [facility] [employer] SolutionsWqjyrk95-71-6630 04:34-0400Body .61 kgJae Baldwin MD Work Phone: Bon [facility]05-06-2025 12:37-0400Body tkxxhdcqmue58 [degF]Farida Gibbons DO Work Phone: [facility]05-06-2025 11:30-0400Body txevbo488.8 cmCangel Gibbons DO Work Phone: [facility]05-06-2025 11:30-0400Body mass index (BMI) [Ratio]27.98 kg/s5YnmpvayljFarida Gibbons DO Work Phone: [facility]05-06-2025 11:30-0400Body cekcmc37.45 kgFarida Gibbons DO Work Phone: [facility]05-06-2025 11:30-0400Diastolic blood xknsrutt59 mm[Hg]Farida Gibbons DO Work Phone: [facility]05-06-2025 11:30-0400Heart rate69 /minSissychip Gibbons DO Work Phone: [facility]05-06-2025 11:30-0400 Respiratory rate20 /minFarida Gibbons DO Work Phone: [facility]05-06-2025 11:30-7286SxU3% (BldA) [Mass fraction]98 %Farida Gibbons DO Work Phone: [facility]05-06-2025 11:30-0400Systolic blood mm[Hg]Farida Shai DO Work Phone: [facility]04-04-2025 16:20-0400Diastolic blood ydozwvjr93 mm[Hg]Dariusz Pratt MD Work Phone: [facility]04-04-2025 16:20-0400Heart rate65 /min Dariusz Pratt MD Work Phone: [phone]04-04-2025 16:20-0400Respiratory rate 16 /minDariusz Pratt MD Work Phone: 1()[facility]04-04-2025 16:20-2560PwO5% (BldA) [Mass fraction]96 %Dariusz Pratt MD Work Phone: 1()[facility]04-04-2025 16:20-0400Systolic blood jwjmpxod675 mm[Hg]Dariusz Pratt MD Work Phone: 1()[facility]04-04-2025 15:54-0400Body temperature 97.5 [degF]Dariusz Pratt MD Work Phone: 1()[facility]04-04-2025 15:04-0400Body uuclcd579.8 cmTjesus Pratt MD Work Phone: 1()[facility]04-04-2025 15:04-0400Body mass index (BMI) [Ratio]27.69 kg/b9HzseyDariusz Pratt MD Work Phone: 1()[facility]04-04-2025 15:04-0400Body zivmwv86.54 kgDariusz Pratt MD Work Phone: [phone]03-17-2025 15:30-0400Diastolic blood slwzuhfx94 mm[Hg]Remy Hardin MD Work Phone: [phone]03-17-2025 15:30-0400Heart rate89 /min Remy Hardin MD Work Phone: [phone]03-17-2025 15:30-0400Respiratory rate 16 /minRemy Hardin MD Work Phone: [phone]03-17-2025 15:30-6774PyP2% (BldA) [Mass fraction]92 %Remy Hardin MD Work Phone: [phone]03-17-2025 15:30-0400Systolic blood itzfspdc527 mm[Hg]Remy Hardin MD Work Phone: [phone]03-17-2025 14:04-0400Body .8 cmRemy Hardin MD Work Phone: [facility]03-17-2025 14:04-0400Body mass index (BMI) [Ratio]27.26 kg/p7JrbmmRemy Hardin MD Work Phone: [facility]03-17-2025 14:04-0400Body temperature 97.9 [degF]Remy Hardin MD Work Phone: [phone]03-17-2025 14:04-0400Body dxzeqd97.18 kgRemy Hardin MD Work Phone: [facility]02-14-2025 17:46-0500Diastolic blood uzbzywoa07 mm[Hg]Dmitry Tierney MD Work Phone: [employer] [facility] HospitalZgoniu00-67-7118 17:46-0500Heart rate90 /Bianca Tierney MD Work Phone: [employer] [facility] HospitalLxxive63-08-6300 17:46-0500 Respiratory rate18 /minDmitry Tierney MD Work Phone: [facility] [employer] [facility] HospitalVaqkdc76-90-6656 17:46-4420XfN3% (BldA) [Mass fraction]96 %Dmitry Tierney MD Work Phone: [facility] [employer] [facility] HospitalLqjbjc08-26-7961 17:46-0500Systolic blood xeatassz377 mm[Hg]Dmitry Tierney MD Work Phone: bon [employer] [facility] HospitalOikjoy70-84-1865 16:01-0500Body qfqxiv543.8 An Tierney MD Work Phone: bon [employer] [facility] HospitalYtpycd23-61-1261 16:01-0500Body mass index (BMI) [Ratio]27.26 kg/m6VrjrdDmitry Tierney MD Work Phone: Bon [employer]02-14-2025 16:01-0500Body atpqofourjc82.2 [degF]Dmitry Tierney MD Work Phone: Bon [employer]02-14-2025 16:01-0500Body eafnze95.18 kgThyola Tierney MD Work Phone: Bon [employer]02-09-2025 14:17-0500Body .8 cmShannon GianParkview Medical Center [employer] [facility] Work Phone: Bon [employer]02-09-2025 14:17-0500Body mass index (BMI) [Ratio]27.26 kg/b5Astyqdz GianParkview Medical Center [employer] [facility] Work Phone: Bon [employer]02-09-2025 14:17-0500Body vkxuohnjhcw28.6 [degF]Eliana Gian TREASURY CONSULTANT [employer] [facility] Work Phone: Bon [employer]02-09-2025 14:17-0500Body vjpyxk77.18 kgShannon GianParkview Medical Center [employer] [facility] Work Phone: Bon [employer]02-09-2025 14:17-0500Diastolic blood viwzqith34 mm[Hg]Eliana [facility]Park[facility] [employer] [facility] Work Phone: Bon [employer]02-09-2025 14:17-0500Heart rate88 /minShannon GianParkview [facility] Center [employer] [facility] Work Phone: Bon [employer]02-09-2025 14:17-0500 Respiratory rate16 /minShannon GianParkview Medical Center [employer] [facility] Work Phone: Bon [employer]02-09-2025 14:17-0500Systolic blood yddpkeef090 mm[Hg]Eliana GianPark[facility] [employer] FLOOR PERSON Work Phone: Bon [employer]11-15-2024 18:28-0500Body mass index (BMI) [Ratio]30.71 kg/q3ZppshDariusz Lambert MD Work Phone: bon [facility]11-15-2024 18:28-0500Body bwivqsdalcg01.7 [degF]Dariusz Lambert MD Work Phone: [facility]11-15-2024 18:28-0500Body coxtfb28.07 kgDariusz Lambert MD Work Phone: [facility]11-15-2024 18:28-0500Diastolic blood eoiurdcq23 mm[Hg]Dariusz Lambert MD Work Phone: [facility]11-15-2024 18:28-0500Heart rate95 /Edward Lambert MD Work Phone: [facility]11-15-2024 18:28-0500 Respiratory rate16 /Edward Lambert MD Work Phone: [facility]11-15-2024 18:28-5431WfN9% (BldA) [Mass fraction]95 %Dariusz Lambert MD Work Phone: [facility]11-15-2024 18:28-0500Systolic blood qcsqgodj351 mm[Hg]Dariusz Lambert MD Work Phone: [facility]11-07-2024 17:33-7258KhD7% (BldA) [Mass fraction]100 %[facility] for RehabilitationComascension providence hospital on above:Order Comment: Specimen Type: ARTERIAL BLOOD SPECIMENOrdering Facility: [facility]ITALAddress: [address] [place] [address] Performed By: #### ALLBG ####[facility] LABCLIA [id number] [facility] G87QPCCUMUEWHEATHER VIL[place] [id number] [facility]11-07-2024 16:01-7773KrM9% (BldA) [Mass fraction]100 %[facility] on above:Order Comment: Specimen Type: ARTERIAL BLOOD SPECIMENOrdering Facility: [facility]PITALAddress: [address] [facility]ITALJhon[address] [place] [id number] By: #### ALLMG ####[facility] LABCLIA [id number] [place] [id number] [facility]11-07-2024 14:06-8447LwE6% (BldA) [Mass fraction]99 %ELIANA SPRINGER [facility] HospitalComment on above:Order Comment: Specimen Type: ARTERIAL BLOOD SPECIMENOrdering Facility: [facility]OSPITALAddress: [address] [place], [place] [address]Performed By: #### ALLMG ####[facility] LABCLIA [id number] [place] [id number] [facility]11-01-2024 11:24-0400Body bnmrae220.8 cmPacc 7 Work Phone: [facility]11-01-2024 11:24-0400Body mass index (BMI) [Ratio]30.37 kg/m2Pacc 7 Work Phone: [facility]11-01-2024 11:24-0400Body temperature 98.29 [degF]Pacc 7 Work Phone: [facility]11-01-2024 11:24-0400Body wrhtit49 kg Pacc 7 Work Phone: [facility]11-01-2024 11:24-0400Diastolic blood lmcinqfi51 mm[Hg]Pacc 7 Work Phone: [facility]11-01-2024 11:24-0400Heart rate78 /min Pacc 7 Work Phone: [facility]11-01-2024 11:24-7053ViU6% (BldA) [Mass fraction]98 %Pac 7 Work Phone: [facility]11-01-2024 11:24-0400Systolic blood udalmqbj377 mm[Hg]Pacc 7 Work Phone: [facility]10-21-2024 11:56-0400Body marmme006.8 cmRohit Miller MD Work Phone: Bon [employer]10-21-2024 11:56-0400Body mass index (BMI) [Ratio]30.71 kg/c8WhgzflRohit Miller MD Work Phone: Bon [employer] [facility] CenterPodimetricsRtnwfl78-11-4732 11:56-0400Body hsurxoeplbh42.2 [degF]Rohit Miller MD Work Phone: Bon [employer]10-21-2024 11:56-0400Body udkidk23.07 kgRohit Miller MD Work Phone: Bon [employer]10-21-2024 11:56-0400Diastolic blood idrqklxn03 mm[Hg]Rohit Miller MD Work Phone: Bon [employer]10-21-2024 11:56-0400Heart rate68 /minRohit Miller MD Work Phone: Bon [employer]10-21-2024 11:56-0400 Respiratory rate16 /minRohit Miller MD Work Phone: Bon [employer]10-21-2024 11:56-4826OhA4% (BldA) [Mass fraction]97 %Rohit Miller MD Work Phone: Bon [employer] [facility] CenterPodimetricsWrpnsj32-77-9342 11:56-0400Systolic blood ulmgqqku332 mm[Hg]Rohit Miller MD Work Phone: Bon [employer]10-18-2024 13:21-0400Body atzardwxhmg25.7 [degF]Eliana Springer TREASURY CONSULTANT - FLOOR PERSON Work Phone: Bon [employer]10-18-2024 13:21-0400Diastolic blood jbyhimtd55 mm[Hg]Eliana Springer APRN - FLOOR PERSON Work Phone: Bon [employer]10-18-2024 13:21-0400Heart rate87 /minShanfernanda Springer APRN - FLOOR PERSON Work Phone: [facility]10-18-2024 13:21-0400 Respiratory rate16 /minShannon Gian TREASURY CONSULTANT - [facility] Work Phone: [facility]10-18-2024 13:21-4359AeW3% (BldA) [Mass fraction]97 %Eliana [facility] CenterN [employer] [facility] Work Phone: [facility]10-18-2024 13:21-0400Systolic blood xrbisciq384 mm[Hg]Eliana [facility] CenterN [employer] [facility] Work Phone: [facility]10-15-2024 17:30-0400Body sqqorl727.8 cmJoycelyn Smith MD Work Phone: [phone]10-15-2024 17:30-0400Body mass index (BMI) [Ratio]30.71 kg/l1JmybxthJoycelyn Smith MD Work Phone: [phone]10-15-2024 17:30-0400Body nfdleebcgig82.2 [degF]Joycelyn Smith MD Work Phone: [phone] [facility]10-15-2024 17:30-0400Body ntlivp07.07 kgJoycelyn Smith MD Work Phone: [phone] [facility]10-15-2024 17:30-0400Diastolic blood lhyheovs43 mm[Hg]Joycelyn Smith MD Work Phone: Bon [facility]10-15-2024 17:30-0400Heart rate84 /Arnol Smith MD Work Phone: [phone] [facility]10-15-2024 17:30-0400 Respiratory rate16 /Arnol Smith MD Work Phone: [phone] [facility] Ldtepz89-97-9390 17:30-1381QdT1% (BldA) [Mass fraction]95 %Joycelyn Smith MD Work Phone: Bon [facility] Pxryjv39-64-5978 17:30-0400Systolic blood hwcitsrj672 mm[Hg]Joycelyn Smith MD Work Phone: bon [facility]10-07-2024 08:50-0400Diastolic blood axoviadu93 mm[Hg]Sheyla Mensah MD Work Phone: [phone] Memorial HospitalYrbwhu57-75-8452 08:50-0400Heart rate54 /min Sheyla Mensah MD Work Phone: [phone] Memorial HospitalHlbiqa72-74-9912 08:50-0400Respiratory rate 16 /minSheyla Mensah MD Work Phone: [phone] Memorial HospitalXfpujl75-45-9139 08:50-5506LoA5% (BldA) [Mass fraction]98 %Sheyla Mensah MD Work Phone: [phone] Memorial HospitalEbaqci75-59-4785 08:50-0400Systolic blood urxiujxd783 mm[Hg]Sheyla Mensah MD Work Phone: PM[facility] [id number] 08:24-0400Body temperature 97.5 [degF]Sheyla Mensah MD Work Phone: QMartin [facility] HospitalDzllne99-48-5268 07:36-0400Body yypbwe228.8 cmSheyla Mensah MD Work Phone: [phone] Memorial [id number] 07:36-0400Body mass index (BMI) [Ratio]30.71 kg/q9LupkgtSheyla Mensah MD Work Phone: UMartin [facility] HospitalDaepxz01-83-7822 07:36-0400Body rrijge36.07 kgSheyla Mensah MD Work Phone: GM[facility] HospitalEghvoj02-63-2777 14:36-0400Body temperature 97.7 [degF]SARAH Jacobson MD Work Phone: [phone]10-01-2024 14:36-0400Body eahham46.5 kgSARAH Jacobson MD Work Phone: [phone]10-01-2024 14:36-0400Diastolic blood xmlmfley75 mm[Hg]SARAH Jacobson MD Work Phone: [facility]10-01-2024 14:36-0400Heart rate79 /min SARAH Jacobson MD Work Phone: [facility]10-01-2024 14:36-0400Respiratory rate 20 /PolySARAH Jacobson MD Work Phone: [facility]10-01-2024 14:36-0057WsJ0% (BldA) [Mass fraction]98 %SARAH Jacobson MD Work Phone: [facility]10-01-2024 14:36-0400Systolic blood jynojnyo801 mm[Hg]SARAH Jacobson MD Work Phone: [facility]07-06-2024 11:33-0400Body temperature 98.29 [degF]Max Addison Jr., MD Work Phone: [facility]07-06-2024 11:33-0400Diastolic blood avuyzvjq27 mm[Hg]Max Addison Jr., MD Work Phone: [facility]07-06-2024 11:33-0400Heart rate78 /Reji Addison Jr., MD Work Phone: [facility]07-06-2024 11:33-0400 Respiratory rate18 /Reji Addison Jr., MD Work Phone: [facility]07-06-2024 11:33-0533PfI0% (BldA) [Mass fraction]99 %Max Addison Jr., MD Work Phone: [facility]07-06-2024 11:33-0400Systolic blood ybgculjc152 mm[Hg]Max Addison Jr., MD Work Phone: [facility]05-27-2024 16:15-0400Diastolic blood jqiadupu28 mm[Hg]Tegan Galvanbhavin SERNA Work Phone: [facility]05-27-2024 16:15-0400Heart rate57 /minTegan Arita DO Work Phone: [facility]ITALJethroData [facility]ITALIntegral Ad [id number] 16:15-0400 Respiratory rate13 /minAndreveria Arita DO Work Phone: [facility] CENTERIntegral Ad [id number] 16:15-2508IvW3% (BldA) [Mass fraction]96 %Tegan Arita DO Work Phone: [facility]OSPITALJethroData [facility]OSPITALIntegral Ad [id number] 16:15-0400Systolic blood mm[Hg]Tegan Arita DO Work Phone: [facility]PITALJethroData [facility]OSPITALIntegral Ad [id number] 13:56-0400Body .8 cmAnne Marieia Arita DO Work Phone: [facility]OSPITALJethroData [facility] [id number] 13:56-0400Body mass index (BMI) [Ratio]30.56 kg/j6Msjnpio Arita DO Work Phone: [facility]OSPITALJethroData [facility]PITALIntegral Ad [id number] 13:56-0400Body adylknmhvdq89.4 [degF]Tegan Arita DO Work Phone: [facility]OSPITALJethroData [facility] [id number] 13:56-0400Body aqawwt84.62 kgAnne Marieia Arita DO Work Phone: [facility]OSPITALJethroData [facility] [id number] 12:03-0400Body .8 cmJoana Stratton MD Work Phone: [facility]05-06-2024 12:03-0400Body mass index (BMI) [Ratio]29.41 kg/u6CbmfrbJoana Stratton MD Work Phone: [facility]05-06-2024 12:03-0400Body tpeacz91.99 kgJoana Stratton MD Work Phone: [facility]05-06-2024 12:03-0400Diastolic blood qjjrawvx08 mm[Hg]Joana Stratton MD Work Phone: [facility]05-06-2024 12:03-0400Heart rate 71 /minJoana Stratton MD Work Phone: [facility]05-06-2024 12:03-0400 Respiratory rate16 /Wilner Stratton MD Work Phone: [facility]05-06-2024 12:03-0400Systolic blood rjdfidfr825 mm[Hg]Joana Stratton MD Work Phone: [facility]04-01-2024 13:08-0400Body ncrvag278.8 cmJoana Stratton MD Work Phone: [facility]04-01-2024 13:08-0400Body mass index (BMI) [Ratio]29.41 kg/y0WjzqzgJoana Stratton MD Work Phone: [facility]04-01-2024 13:08-0400Body .99 kgJoana Stratton MD Work Phone: [facility]04-01-2024 13:08-0400Diastolic blood tamqqhbx06 mm[Hg]Joana Stratton MD Work Phone: [facility]04-01-2024 13:08-0400Heart rate 73 /minJoana Stratton MD Work Phone: [facility]04-01-2024 13:08-0400 Respiratory rate16 /Wilner Stratton MD Work Phone: [facility]04-01-2024 13:08-0400Systolic blood lpetlesy725 mm[Hg]Joana Stratton MD Work Phone: [facility]03-04-2024 12:46-0500Body yivkmi143.8 cmJoana Stratton MD Work Phone: [facility]03-04-2024 12:46-0500Body mass index (BMI) [Ratio]29.41 kg/s2NfnebyJoana Stratton MD Work Phone: [facility]03-04-2024 12:46-0500Body .99 kgJoana Stratton MD Work Phone: [facility]03-04-2024 12:46-0500Diastolic blood liketygm64 mm[Hg]Joana Stratton MD Work Phone: [facility]03-04-2024 12:46-0500Heart rate 83 /minJoana Stratton MD Work Phone: [facility]03-04-2024 12:46-0500 Respiratory rate18 /minJoana Stratton MD Work Phone: [facility]03-04-2024 12:46-0500Systolic blood xsycyucq552 mm[Hg]Joana Stratton MD Work Phone: [facility]01-31-2024 14:09-0500Body ignngx968.8 cmSlime Romano TREASURY CONSULTANT-FLOOR PERSON Work Phone: [facility]01-31-2024 14:09-0500Body mass index (BMI) [Ratio]29.41 kg/d4AkekjimSlime Romano TREASURY CONSULTANT-FLOOR PERSON Work Phone: [facility]01-31-2024 14:09-0500Body yutoxc99.99 kgSlime Romano TREASURY CONSULTANT-FLOOR PERSON Work Phone: [facility]01-31-2024 14:09-0500Diastolic blood tktnmcan41 mm[Hg]Slime Romano TREASURY CONSULTANT-FLOOR PERSON Work Phone: [facility]01-31-2024 14:09-0500Heart rate 84 /minSlime Romano TREASURY CONSULTANT-FLOOR PERSON Work Phone: [facility]01-31-2024 14:09-0500 Respiratory rate18 /minSlime Romano TREASURY CONSULTANT-FLOOR PERSON Work Phone: [facility]01-31-2024 14:09-0500Systolic blood lnchxhhe598 mm[Hg]Slime Romano TREASURY CONSULTANT-FLOOR PERSON Work Phone: [facility]01-03-2024 13:45-0500Body lfwyht925.8 cmSlime Romano TREASURY CONSULTANT-FLOOR PERSON Work Phone: [facility]01-03-2024 13:45-0500Body mass index (BMI) [Ratio]29.41 kg/y1WvtdubzSlime Romano TREASURY CONSULTANT-FLOOR PERSON Work Phone: [facility]01-03-2024 13:45-0500Body tkjull23.99 kgSlime Romano TREASURY CONSULTANT-FLOOR PERSON Work Phone: [facility]01-03-2024 13:45-0500Diastolic blood oyovbnne99 mm[Hg]Slime Romano TREASURY CONSULTANT-FLOOR PERSON Work Phone: [facility]01-03-2024 13:45-0500Heart rate 82 /minSlime Romano TREASURY CONSULTANT-FLOOR PERSON Work Phone: [facility] [employer] Acopaj11-48-1707 13:45-0500 Respiratory rate18 /minSlime Romano TREASURY CONSULTANT-FLOOR PERSON Work Phone: [facility]01-03-2024 13:45-0500Systolic blood ccgejbet056 mm[Hg]Slime Romano TREASURY CONSULTANT-FLOOR PERSON Work Phone: [facility] Encounters Encounter DateEncounter TypeCare ProviderFacilityStart: 08-25-2025 End: 43-02-0323amwrnvzkwlAPGDHIDuncan [facility] HospitalStart: 08-25-2025 End: 23-15-7815Kjizjweoug hospital visit by Sridhar Chatterjee MD Work Phone: mtHZ ORStart: 08-19-2025 End: 77-39-1784pjwizwsvwaPXMWSPEkta [facility] HospitalStart: 08-19-2025 End: 10-57-4605Lvzfvrcdlz hospital visit by Alana Laboratory Schedule [facility] LABComment on above:Prostate cancer screening; Diarrhea, unspecified type; Other fatigueStart: 08-07-2025 End: 07-75-1677Xkdppt flowsheetAlison L Manoj PA Work Phone: [facility]ermatologyStart: 08-07-2025 End: 58-21-5517Avyvaa flowsheetAlison L Manoj PA Work Phone: [facility]ermatologyStart: 08-07-2025 End: 64-93-3500xpdyhzhdlqTBDJGH L WINANSNot AvailableStart: 08-07-2025 End: 13-82-7402Nwzalk outpatient new 30 minutesAlison L Manoj PA Work Phone: [facility] [place] [facility] DermatologyComment on above:Melanocytic nevus of trunk (Primary Dx); Sebaceous hyperplasia; AngiofibromaStart: 07-31-2025 End: 02-37-6864oaowplgydjBQIYHRKHCA [facility] HospitalStart: 07-31-2025 End: 18-29-1087Yamwxkzckv hospital [facility] Schedule [facility] LABComment on above:DysuriaStart: 07-23-2025 End: 88-67-9059Qytqsifqr department patient visitSNewark Hospitaltart: 07-07-2025 End: 84-75-7138Zmfrhykwaqou consultation with Bernabe Bravo MD Work Phone: EndocrinologyStart: 07-07-2025 End: 39-43-1660qbtiekxfxpIthjx Zhou MD Work Phone: EndocrinologyComment on above:Post-pancreatectomy diabetes (HCC) (Primary Dx); Insulin pump statusStart: 07-01-2025 End: 85-64-3568Jqsqpzqxo encounterKathy Bravo MD Work Phone: EndocrinologyComment on above:Request For Clinical NotesStart: 06-26-2025 End: 57-95-5612FqhbrsPcvnl Zhou MD Work Phone: EndocrinologyComment on above:Refill RequestStart: 06-18-2025 End: 35-01-2789Tncmpodxq department patient visitDmitry Tierney MD Work Phone: [facility] Emergency DepartmentComment on above: Pneumonia of right middle lobe due to infectious organism (Primary Dx); Nausea vomiting and diarrheaStart: 06-12-2025 End: 75-20-7947Qpnbaijmn Summer Bravo MD Work Phone: EndocrinologyComment on above:Forms (ADS order form) Start: 74-04-4737Desbvxswik and management of inpatientMercy Hospitaltart: 05-30-2025 End: 85-61-2833Ivhwszuwy to Denise Graves MD Work Phone: bon [facility] Work Phone: Start: 05-30-2025 End: 55-80-1854Qowhuqcfg department patient visitLuis Alberto Graves MD Work Phone: [facility] Emergency DepartmentComment on above: Medical clearance for psychiatric admission (Primary Dx); Depression with suicidal ideation; PTSD (post-traumatic stress disorder)Start: 05-25-2025 End: 30-04-1250Wjkwjukekj and management of inpatientJae Baldwin MD Work Phone: mthz [facility]U MED SURGComment on above:Right flank pain (Primary Dx); Pneumonia of right lower lobe due to infectious organism; RACQUEL (acute kidney injury); Acute pneumoniaStart: 05-13-2025 End: 76-69-1597twryxjidhcFRHD Jhonathan CAR[facility]AMemorial [facility] HospitalStart: 05-13-2025 End: 23-76-0127Xujnxerbnh hospital visit by Cara Kenney CNP Work Phone: [facility] LABComment on above:BPH with obstruction/lower urinary tract symptoms; Incomplete bladder emptyingStart: 04-28-2025 End: 04-94-2235Jufclgwrv Summer Bravo MD Work Phone: EndocrinologyComment on above:progress notesStart: 04-20-2025 End: 24-55-1043cdhavlqdviDdhemxq L Studer TREASURY CONSULTANT-CNPFacility:PM BellevueStart: 99-07-2677azttzazuuqWHKPD [facility] AmbulatoryStart: 04-03-2025 End: 18-95-9564Egmmwppjc encounterR Kassidy Jacobson MD Work Phone: General SurgeryComment on above:Patient UpdateStart: 03-31-2025 End: 53-59-6911uinrjrwlbeEpemu Zhou MD Work Phone: EndocrinologyComment on above:Post-pancreatectomy diabetes (HCC) (Primary Dx); Insulin pump statusStart: 03-31-2025 End: 23-40-6666Ffcjzmzytokf consultation with Bernabe Bravo MD Work Phone: EndocrinologyStart: 03-31-2025 End: 74-10-7444Rawleajsm encounterKathy Bravo MD Work Phone: EndocrinologyComment on above:AppointmentStart: 03-18-2025 End: 58-03-3305Wywktcvkk encounterKathy Bravo MD Work Phone: EndocrinologyComment on above:Request For Clinical NotesStart: 03-04-2025 End: 30-05-0234Klvpgpcgj Summer Bravo MD Work Phone: EndocrinologyComment on above:FormsStart: 03-03-2025 End: 32-57-4542yastjzfgnnLkmnqvRob Corado MD Facility:[facility] HospitalStart: 02-24-2025 End: 40-24-0127Ubstwsyym department patient visitChchip Jesus Daleyelpidio SERNA Work Phone: [facility] Emergency DepartmentComment on above: Contusion of finger of left hand, unspecified finger, initial encounter (Primary Dx)Start: 02-17-2025 End: 59-48-7481PtblbaYnywn Zhou MD Work Phone: EndocrinologyComment on above:Refill RequestStart: 02-16-2025 End: 16-94-2825costflsuugSUFFRCR L STUDERMercy Point Pleasant HospitalStart: 02-16-2025 End: 46-95-5751Qqidzhszrf hospital visit by [facility] TIFFIN LABComment on above:Left lower quadrant abdominal pain; History of diverticulitisStart: 01-28-2025 End: 52-62-9014Unokzs-up encounterDariusz Pratt MD Work Phone: GastroenterologyStart: 01-23-2025 End: 85-04-9675xnekhsupboSPVXOCH L STUDERFacility:[facility] Start: 01-23-2025 End: 85-44-7973Ohyfdgkfuj hospital visit by Bijan Pratt MD Work Phone: GastroenterologyComment on above:IPMN (intraductal papillary mucinous neoplasm) [D49.0]Start: 01-16-2025 End: 83-48-6467istkejlmssIrxew M Edkins RNGastroenterologyStart: 01-07-2025 End: 18-82-0876Ngplwj Jenny Kerns RN Work Phone: General SurgeryComment on above:IPMN (intraductal papillary mucinous neoplasm) (Primary Dx)Start: 01-05-2025 End: 43-79-6060htxamvibbmAENPATQ L STUDERFacility:[facility] Start: 01-05-2025 End: 63-73-8916Yaczyyonpd hospital visit by Priscilla Hardin MD Work Phone: GastroenterologyComment on above:IPMN (intraductal papillary mucinous neoplasm) [D49.0]Start: 12-29-2024 End: 77-45-3727fostftotucMmeyxnd J Browne RNGastroenterologyStart: 12-29-2024 End: 84-79-7609Jckaskhqv Summer Bravo MD Work Phone: EndocrinologyComment on above:FormsStart: 12-24-2024 End: 30-17-8619Akvlgrhrmf hospital visit by Ramón Garay [address] [place] [address] RadiologyComment on above:Influenza A; Chest tightnessStart: 12-24-2024 End: 37-10-6016tonztbdyeqNlsix Zhou MD Work Phone: EndocrinologyComment on above:Post-pancreatectomy diabetes (HCC) (Primary Dx); Insulin pump statusStart: 12-24-2024 End: 98-82-2802Incvrppytjvx consultation with patientKathy Bravo MD Work Phone: EndocrinologyStart: 12-23-2024 End: 83-56-8163Wjpbyx Jenny Kerns RN Work Phone: General SurgeryComment on above:IPMN (intraductal papillary mucinous neoplasm) (Primary Dx)Start: 12-16-2024 End: 41-27-4464crjiagcacdVFRADFF L [facility] HospitalStart: 12-16-2024 End: 91-10-7279Brasnhxuzy hospital visit by Cara Kenney CNP Work Phone: [facility] LABComment on above:Dysuria; Vomiting and diarrheaStart: 12-12-2024 End: 86-60-5335Dqvipv Aminta Qiu RN Work Phone: General SurgeryComment on above:IPMN (intraductal papillary mucinous neoplasm) (Primary Dx)Start: 12-05-2024 End: 00-95-2076Oredixpae department patient visitDmitry Tierney MD Work Phone: [facility] Emergency DepartmentComment on above:Rib pain (Primary Dx); Abdominal pain, right upper quadrantStart: 12-04-2024 End: 38-13-3734Mcnbqufav encounterR Kassidy Jacobson MD Work Phone: General SurgeryComment on above:Patient Update; Patient QuestionStart: 12-01-2024 End: 86-79-7706Kpadkswss encounterR Kassidy Jacobson MD Work Phone: [facility] SurgeryComment on above:Patient QuestionStart: 11-30-2024 End: 52-53-0843Murhiypma department patient visitSTUCSON MEDICAL CENTERFERNANDA [facility] Emergency DepartmentComment on above:Contusion of back, unspecified laterality, initial encounter (Primary Dx); Sprain of left hand, initial encounter; Contusion of left elbow, initial encounterStart: 11-27-2024 End: 83-46-3654npymlqtyebDDBGWTAHCA [facility] HospitalStart: 11-27-2024 End: 91-02-2490Oddyenfqzp hospital visit by physicianSyudy Kenney CNP Work Phone: [facility] LABComment on above:DysuriaStart: 11-24-2024 End: 72-52-2740qrixlaaotsMyakwux Vytautas Giedraitis MDFacility:[facility] [place] Start: 11-03-2024 End: 29-35-1769yeqatslxdrMpofvje Vytautas Giedraitis MDFacility:[facility] [place] Start: 10-31-2024 End: 80-33-6441xbfzwmtuqvFhkxl Zhou MD Work Phone: EndocrinologyComment on above:Post-pancreatectomy diabetes (HCC) (Primary Dx); Insulin pump statusStart: 10-31-2024 End: 06-65-3758Bgqpdxjqqrsn consultation with Bernabe Barvo MD Work Phone: EndocrinologyStart: 10-20-2024 End: 21-80-9069dtepmuiggpYszhzcr Vytautas Jessicaednathan MDFacility:[facility] [place] Start: 10-10-2024 End: 58-39-3779Glwqftzcq encounterJobreanne Hines RN Work Phone: Diabetic Education Main X03Hsgpjul on above:Insulin Pump Start Follow UpStart: 10-07-2024 End: 45-96-1258Loqidmh evaluation of patient and reportDario Hines RN Work Phone: diabetic Education Main Z24Gkvfoyg on above:Post- pancreatectomy diabetes (HCC) (Primary Dx)Start: 10-07-2024 End: 88-70-2904pueyjwamoeKXGNYPE L STUDERFacility:[facility] Start: 10-02-2024 End: 19-30-4557Ecwnfsmlq encounterKathy Bravo MD Work Phone: EndocrinologyComment on above:Forms ([place] Insulin pump)Start: 10-02-2024 End: 11-71-4413wpztcaaxbxJcfggf Hamker RN Work Phone: diabetic Education [place] FHCComment on above:Post-pancreatectomy diabetes (HCC) (Primary Dx)Start: 10-02-2024 End: 25-06-4253Nkwezvzwwvhb consultation with patientDario Hines RN Work Phone: diabetic [facility] FHtart: 09-30-2024 End: 65-70-4558tqtzyjtyggCJOETJA L STUDERFacility:[facility] Start: 09-30-2024 End: 92-53-2517Zdtpuxu encounter procedureR Kassidy Jacobson MD Work Phone: General SurgeryComment on above:IPMN (intraductal papillary mucinous neoplasm) (Primary Dx)Start: 09-26-2024 End: 91-84-4830Bolhsqnlz Summer Bravo MD Work Phone: EndocrinologyComment on above:Insulin pump start trainingStart: 09-24-2024 End: 05-54-2881krotggzmucDiyme Zhou MD Work Phone: EndocrinologyComment on above:Regarding Pump and SuppliesStart: 09-24-2024 End: 98-41-3991F-mail encounter from Graciela Bravo MD Work Phone: EndocrinologyStart: 09-24-2024 End: 69-18-9172Apssiwvou encounterKathy Bravo MD Work Phone: EndocrinologyComment on above:FormsStart: 09-19-2024 End: 12-85-5511LhnysfXvutu Zhou MD Work Phone: EndocrinologyComment on above:Refill RequestStart: 09-15-2024 End: 26-71-3718Sqphisttb encounterKathy Bravo MD Work Phone: EndocrinologyComment on above:FormsStart: 09-11-2024 End: 68-13-1352YpyqgvT Kassidy Jacobson MD Work Phone: General SurgeryStart: 09-09-2024 End: 13-40-8494iuiprqrmztMcvpp Zhou MD Work Phone: EndocrinologyComment on above:Post-pancreatectomy diabetes (HCC) (Primary Dx)Start: 09-09-2024 End: 11-12-9977Rgeixkcziamx consultation with Bernabe Bravo MD Work Phone: EndocrinologyStart: 09-09-2024 End: 20-57-8002Txmgogoxu encounterKathy Bravo MD Work Phone: EndocrinologyComment on above:Patient UpdateInsurance Authorization (Insulin Pump [[facility] MEDIC[facility]])Start: 09-05-2024 End: 60-33-2333Iaieloqxp department patient visitDariusz Lambert MD Work Phone: [facility] EDComment on above:Strain of neck muscle, initial encounter (Primary Dx)Start: 09-05-2024 End: 84-42-7115Tqyuwr Vargas Fowler MD Work Phone: General SurgeryComment on above:Acute post-operative pain (Primary Dx)Patient Update; Patient QuestionStart: 08-28-2024 End: 30-17-0771Czlco abstractWaleska Mason Work Phone: Hematology/OncologyComment on above:Research (IRB [id number])Start: 08-28-2024 End: 36-10-4593Lgklxwiqax and management of inpatientR KASSIDY JACOBSON [facility]: 08-22-2024 End: 73-46-3664Vuxqjse encounter procedureJhonatan Hensley PhD Work Phone: [facility] SurgeryComment on above:IPMN (intraductal papillary mucinous neoplasm); Preoperative examinationStart: 08-22-2024 End: 97-68-9911Aaxemhq evaluation of patient and reportLigia Kerns RN Work Phone: [facility] SurgeryComment on above:Preoperative examination (Primary Dx)Start: 08-22-2024 End: 05-94-8286Ethgchpaoltwm examination Shalom Kerns RN Work Phone: [facility] Work Phone: Start: 08-22-2024 End: 58-99-1684Vieefovpby hospital visit by physicianXr Chest Main Q06Trlxbepjk Comment on above:IPMN (intraductal papillary mucinous neoplasm) [D49.0]Start: 08-22-2024 End: 05-34-9414ldvsobdgsgIZQRJQG L STUDERFacility:[facility] Start: 08-22-2024 End: 52-11-0269pnomwqkbyfQXRWBSA L STUDERFacility:[facility] Start: 40-02-1496Ogbkvbrcy for other preprocedural examinationSHANNON GIAN [facility] HospitalStart: 08-22-2024 End: 82-86-6997Rtxyczxgx to establishmentLourdes Medical Center Main 7 Work Phone: Pre AnesthesiaStart: 08-22-2024 End: 76-82-3371Aojacvtxbw consultationRobert Wood [facility] 7 Work Phone: Pre AnesthesiaComment on above:Severe persistent asthma, unspecified whether complicated (Primary Dx); 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); Dong's esophagus with dysplasia; Other chronic pancreatitis (HCC); Fatty liver; History of bowel resection; Preoperative examinationStart: 08-22-2024 End: 46-18-1628Nxrfawcbfhjaf examination doneErin [place] [address] Work Phone: [facility] Work Phone: Start: 08-22-2024 End: 08-78-0885ieluihdcsqGNTURDG L STUDERFacility:[facility] Start: 08-22-2024 End: 21-77-7742nnalantopvAljbm Zhou MD Work Phone: EndocrinologyComment on above:Post-pancreatectomy diabetes (HCC) (Primary Dx)Start: 08-22-2024 End: 04-40-4228Xxvxfdpciifh consultation with Bernabe Bravo MD Work Phone: EndocrinologyStart: 08-14-2024 End: 38-92-6994FdvlnmRadha Kerns RN Work Phone: General SurgeryComment on above:IPMN (intraductal papillary mucinous neoplasm) (Primary Dx)08/22/2024 pre op 08/28/2024 CURE (Total panc)Start: 08-14-2024 End: 90-09-7204Dhdnfjzsybvfy examination doneR Kassidy Jacobson MD Work Phone: [facility] Main Campustart: 08-11-2024 End: 40-07-1494Yfrtffhdq department patient visitRohit Miller MD Work Phone: [facility] EDComment on above:Left-sided chest wall pain (Primary Dx); Rib contusion, left, sequelaStart: 08-08-2024 End: 44-49-2123Pcxxlmmig encounterR Kassidy Jacobson MD Work Phone: [facility] SurgeryComment on above:Patient UpdateStart: 08-08-2024 End: 65-98-8401Mnnytumsk department patient visitSyudy Kenney CNP Work Phone: [facility] EDComment on above:Chest wall contusion, left, initial encounter (Primary Dx); Strain of tendon of left half of anterior chest wallStart: 08-05-2024 End: 14-55-7540Bhptxeree department patient visitMelissa Luis MD Work Phone: [facility] EDComment on above:Other chronic pancreatitis (HCC) (Primary Dx); Epigastric painStart: 08-05-2024 End: 69-89-4139Julrwhmsa encounterLigia Kerns RN Work Phone: [facility] SurgeryStart: 08-04-2024 End: 70-45-6667JxjqcmJ Kassidy Jacobson MD Work Phone: General SurgeryStart: 07-30-2024 End: 48-13-5870Emfpmqqfh encounterR Kassidy Jacobson MD Work Phone: General SurgeryComment on above:Results; Patient QuestionStart: 07-28-2024 End: 86-41-8773Xzzispmkhi hospital visit by Sienna Mensah MD Work Phone: GastroenterologyComment on above:Cyst and pseudocyst of pancreas [K86.2, K86.3]Start: 07-24-2024 End: 86-13-6635Awvkpjkkw encounterLigia Kerns RN Work Phone: [facility] SurgeryStart: 07-22-2024 End: 30-68-9180Slvxkh Jenny Kerns RN Work Phone: General SurgeryComment on above:Cyst and pseudocyst of pancreas (Primary Dx)IPMN (intraductal papillary mucinous neoplasm) (Primary Dx) Start: 07-21-2024 End: 77-29-3598Rhemugojr encounterR Kassidy Jacobson MD Work Phone: Digestive Disease InstComment on above:imaging (Pt is unable to get imaging for 06/26/24 US we do have reports no imaging tho )Start: 07-17-2024 End: 22-01-9991Ogeuvtnpl encounterChxochitl Bardales MD Work Phone: General SurgeryComment on above: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 Mary Hospitaltart: 35-37-3463qwgeqckpwtUra Paul BabichFacility:[facility] Centertart: 05-24-2024 End: 11-05-6033Klkxmfkrz encounterLuna TomlinsonFort Hamilton Hospital Call CenterComment on above:PancreatitisStart: 05-24-2024 End: 74-87-1733Icftooonut and management of inpatientMICHAEL W SAADProMedParkview Health Bryan Hospitaltart: 06-46-8485zwivyyaspdRZZYSVV [facility] PPGStart: 05-23-2024 End: 17-60-9139Eczldcxsz department patient visitSnitish Oneal MD [facility]: 05-13-2024 End: 88-93-2410ndqhhjsrasSltkcmr Stacia Springer TREASURY CONSULTANT-CNPFacility:[facility]art: 05-12-2024 End: 00-66-9273dcirwzuwabLbsbzlg Stacia Springer TREASURY CONSULTANT-CNPFacility:[facility] TownshipueStart: 04-26-2024 End: 30-28-0313Ogvqponjf department patient visitMax Addison MD Work Phone: [facility] EDComment on above:Thoracic myofascial strain, initial encounter (Primary Dx); Left wrist sprain, initial encounter; Closed nondisplaced fracture of phalanx of left index finger, unspecified phalanx, initial encounterStart: 04-23-2024 End: 70-10-3037Ahqlkttynu hospital visit by physicianLong [facility] Cat Scan RoomHERKIMER [facility] LaboratoryComment on above:Cervical spinal stenosisStart: 04-03-2024 End: 83-50-4114TcnypuMzvtyOhioHealth Grant Medical Center - Pain Management ClinicComment on above:Postlaminectomy syndrome, lumbar regionStart: 04-02-2024 End: 73-40-7086Trupwanlh encounterKelly Caprara RNFostoria Pain ClinicStart: 03-31-2024 End: 01-12-6897Zuabuztgi encounterRebecca Spaulding CMAFostoria Pain ClinicStart: 03-26-2024 End: 23-13-0444jrkzghnkejPQJUXTZZanesville City Hospital Start: 03-25-2024 End: 62-93-8448Miyiwboujwniy procedureKelly Caprara RNFostoria Pain ClinicStart: 03-17-2024 End: 25-06-4595Apcazpnlp department patient visitTegan Arita DO Work Phone: [facility] EDComment on above:Nonspecific chest pain (Primary Dx)Start: 02-25-2024 End: 53-17-6386Xgkwzy outpatient visit 25 minutesJoana Stratton MD Work Phone: [facility] ClinicComment on above:Cervical radiculitis (Primary Dx); Postlaminectomy syndrome, lumbar region; Encounter for long-term opiate analgesic use; CervicalgiaStart: 02-25-2024 End: 95-23-5857cawhebwswtFALPCVCleveland Clinic Hillcrest Hospital Start: 01-31-2024 End: 84-04-4470Inxtyvvewe hospital visit by Cara Kenney CNP Work Phone: [facility] RadiologyStart: 01-21-2024 End: 89-32-9087pjfcpwlzyjMUDSAGCleveland Clinic Hillcrest [facility] Start: 01-21-2024 End: 34-28-7845Yquaho outpatient visit 25 minutesJoana Stratton MD Work Phone: [facility] ClinicComment on above:Thoracic spondylosis without myelopathy (Primary Dx); Postlaminectomy syndrome, lumbar region; Encounter for long-term opiate analgesic useStart: 01-21-2024 End: 58-34-4127uihmssqytiIGNQZXOhio State University [facility] Start: 01-15-2024 End: 06-66-2746Fzmjxqrubq and management of inpatientNORMAN G ZAVELAProMedica Select Medical Specialty Hospital - Akrontart: 01-14-2024 End: 63-61-8397Fkaadeanwm and management of inpatientNADEEM N [facility] [place], OKLAHOMASONNYProMedica Select Medical [facility]ty Hospital - Akrontart: 12-24-2023 End: 81-33-4888Ymposm outpatient visit 25 minutesJoana Stratton MD Work Phone: [facility] ClinicComment on above:Thoracic spondylosis without myelopathy (Primary Dx); Postlaminectomy syndrome, lumbar region; Encounter for long-term opiate analgesic useStart: 12-24-2023 End: 59-48-2992hxtrnyuiqyLUOOILOhio State University [facility] Center Start: 11-30-2023 End: 24-03-0818Ragpbugxyn hospital visit by Cara Springer TREASURY CONSULTANT - FLOOR PERSON Work Phone: mthz LaboratoryComment on above:Other fatigue; Chronic pain syndrome; Anemia, unspecified type; Low vitamin D levelStart: 15-22-7115Lsupuiqqawoyy procedureKeltoni [facility] Pain ClinicStart: 11-26-2023 End: 20-61-4750Bvrsyhwbqm and management of inpatientNADEEM N [facility] [place], OKLAHOMASONNYProMediRegency Hospital Toledo HospitalStart: 11-21-2023 End: 64-62-9760Yefxfp outpatient visit 25 minutesSlime Romano TREASURY CONSULTANT-FLOOR PERSON Work Phone: [facility] ClinicComment on above:Thoracic spondylosis without myelopathy (Primary Dx); Postlaminectomy syndrome, lumbar region; Lumbosacral spondylosis without myelopathyStart: 11-21-2023 End: 15-10-0631hdlmxipgneQOOEHSFZanesville City Hospital Start: 90-18-5830Caxoja OnlyMichellejori Hyatt CMAFostoria Pain ClinicComment on above:Thoracic spondylosis without myelopathy (Primary Dx)Start: 10-24-2023 End: 64-25-2734Kgtykq outpatient visit 25 minutesSlime Romano TREASURY CONSULTANT-FLOOR PERSON Work Phone: [facility] ClinicComment on above:Thoracic spondylosis (Primary Dx); Postlaminectomy syndrome, lumbar region; Encounter for long-term opiate analgesic useStart: 10-24-2023 End: 63-40-2447emgphabulwQOMZLMZZanesville City Hospital Start: 10-08-2023 End: 60-18-5294Jskpgtilvw and management of inpatientNADEEM N [facility] Main Campustart: 07-05-2023 End: 02-14-3335Pxfwkkx encounter statusUli Strong MD Work Phone: [facility] Work Phone: Start: 07-05-2023 End: 39-26-9587Jhkmbwqhla hospital visit by Hoa Strong MD Work Phone: [facility] Non-Invasive CardiologyComment on above:Preop cardiovascular exam; Primary hypertension; Mixed hyperlipidemia; Intermittent chest painStart: 06-21-2023 End: 79-44-2884Wjbfrzibcu hospital visit by Cara Springer TREASURY CONSULTANT - FLOOR PERSON Work Phone: mthz LaboratoryComment on above:Diarrhea, unspecified typeStart: 09-27-2020 End: 47-96-9304Slomsjo encounter procedureLILLIAN Garcia [facility] CenterStart: 08-23-2020 End: 63-67-0606Blvwpgz encounter procedureLILLIAN Garcia [facility] CenterStart: 07-05-2020 End: 59-01-8919Ypjfxqq encounter procedureLILLIAN Garcia [facility] CenterStart: 05-24-2020 End: 06-19-5893Qfzhsmg encounter procedureLILLIAN Garcia [facility] CenterStart: 04-26-2020 End: 72-11-5247Mpccjwl encounter procedureLILLIAN Garcia [facility] CenterStart: 01-26-2020 End: 38-07-5215Enbuujj encounter procedureLILLIAN Garcia [facility] CenterStart: 12-15-2019 End: 83-77-1396Uqhdrcp encounter procedureLILLIAN Garcia [facility] CenterStart: 12-09-2019 End: 48-37-1498Whulzfu encounter procedureLILLIAN Garcia [facility] CenterStart: 12-02-2019 End: 27-93-8868Jokdtih encounter procedureLILLIAN Garcia [facility] CenterStart: 11-27-2019 End: 52-22-6023Lpyovwy encounter procedureLILLIAN Garcia [facility] CenterStart: 11-17-2019 End: 07-77-3216Zwysmei encounter procedureLILLIAN Garcia [facility] CenterStart: 11-17-2019 End: 07-49-1530Iyersft encounter procedureLILLIAN DupontLafene Health Center Procedures DateProcedureProcedure DetailPerforming ClinicianStart: 08-19-2025 End: 20-25-0739Ntqscauttwhpp metabolic panelShannon L Gian TREASURY CONSULTANT - FLOOR PERSON Work Phone: Start: 53-10-1234Thdkj dip stick/tablet reagent auto microscopyBethcarrie Almonte TREASURY CONSULTANT - FLOOR PERSON Work Phone: start: 25-28-6281Agckr of gammaglobulin igeUnknown Provider ResultStart: 02-59-0801D-reactive proteinUnknown Provider ResultStart: 72-52-6375Mf abdomen & pelvis w/contrast materialThaieva Tierney MD Work Phone: Start: 44-14-7137Loj routine ecg w/least 12 lds w/i&r Dmitry Tierney MD Work Phone: Start: 65-31-5043Yxtwykxnga exam chest single view Dmitry Tierney MD Work Phone: Start: 06-18-2025 End: 51-94-7500Ixdenwnlamwfl metabolic panelBerenicedceva Tierney MD Work Phone: Start: 06-18-2025 End: 27-85-5206QPSJPIS, SEPSISHugoeva Natanael Marifer REARDON Work Phone: Start: 20-58-4600ULHBH-19, RAPIDDmitry Santoyo Marifer REARDON Work Phone: Start: 05-06-8706Ztijvhreo influenzaHugoeva Tierney MD Work Phone: Start: 79-91-6092Daw routine ecg w/least 12 lds w/i&r Luis Jhonathan Quizrr PAInnohat Work Phone: Start: 87-11-1154Wkqlefvssi exam chest 2 viewsTodd Jhonathan Quizrr PA-CHOBOLABS Work Phone: Start: 28-19-4684Ktav tst prsmv instrmnt chem analyzers pr dateLuis Alberto Graves MD Work Phone: Start: 18-96-7061Xywxb of acetaminophenLuis Alberto Graves MD Work Phone: Start: 92-56-6656Ffumd of ethanolLuis Alberto Graves MD Work Phone: Start: 10-86-1314Yazxl of salicylateLuis Alberto rGaves MD Work Phone: Start: 90-83-7309Noqwrlxyichqa metabolic panel Luis Alberto Graves MD Work Phone: Start: 05-27-2025 End: 38-92-7273KTDEFNK, WHOLE BLOODStkristian Shepard MD Work Phone: Start: 99-94-3784JMGZCXX, WHOLE BLOODIrvin Shepard MD Work Phone: Start: 76-38-3967Abbnl count complete auto&auto difrntl wbcMegan L Chucho TREASURY CONSULTANT - FLOOR PERSON Work Phone: Start: 69-08-6612HHQYLSZ, WHOLE BLOODIrvin Shepard MD Work Phone: Start: 52-43-2237BYGSFRU, WHOLE BLOODIrvin Shepard MD Work Phone: Start: 18-97-4924Stdnzl ecg 1-3 leads w/interpretation & reportUnknown Provider ResultStart: 55-63-1346FVRUMRM, WHOLE BLOODIrvin Shepard MD Work Phone: Start: 36-48-6253Nmpbrhv bacterial blood aerobic w/id isolatesIrvin Shepard MD Work Phone: Start: 75-48-2496Wi abdominal real time w/image documentationNatangela Cartagena [facility] Work Phone: Start: 70-56-7410ZCUCUEB, BLOOD 1Stkristian Shepard MD Work Phone: Start: 93-14-1567RHERRZN, WHOLE BLOODIrvin Shepard MD Work Phone: Start: 88-14-8280Yelvqk ecg 1-3 leads w/interpretation & reportUnknown Provider ResultStart: 86-84-4542Duovg count complete auto&auto difrntl wbcMegan Stacia Rankin [facility] Work Phone: Start: 33-79-7682Vbrdxttgzadai (pct)Rosenda Stacia Quezadan [facility] Work Phone: Start: 13-08-7448Zmhzeirgrj exam chest 2 views Luis Alberto Graves MD Work Phone: Start: 43-32-3574Tocdm dip stick/tablet rgnt auto w/o microscopyJae Baldwin MD Work Phone: Start: 79-50-4482Lp abdomen & pelvis w/o contrast materialJae Baldwin MD Work Phone: Start: 05-25-2025 End: 29-46-6653Znyxbvqsuzpmx metabolic panelJae Baldwin MD Work Phone: Start: 92-75-4055Vnnvk hand minimum 3 viewsChristina Jesus Gibbons DO Work Phone: Start: 81-96-7768Iu abdomen & pelvis w/contrast materialShannon L Gian TREASURY CONSULTANT - FLOOR PERSON Work Phone: Start: 08-59-5820Qmeph metabolic panel calcium total Eliana L Gian TREASURY CONSULTANT - FLOOR PERSON Work Phone: Start: 68-36-5143Xndbsrineotczxsyztcybpynkt transoral diagnosticJulie Luis F RN Work Phone: Start: 54-58-1248Zwhtokwlxrj rig transoral hypopharynx crv esophR Kassidy Jacobson MD Work Phone: Start: 42-64-9477Bvdkxntcsj exam chest 2 viewsShannon L Gian TREASURY CONSULTANT - FLOOR PERSON Work Phone: Start: 94-03-1992Rr thorax w/contrast materialThaieva Tierney MD Work Phone: Start: 51-95-7061Hpielggtjuyva metabolic panelThyola Tierney MD Work Phone: Start: 08-90-7322Iv thoracic spine w/o contrast materialJames P Yahir PA-C Work Phone: Start: 11-30-2024 End: 56-55-3895Rvxde elbow complete minimum 3 viewsDmitry Tierney MD Work Phone: Start: 08-28-2024H/O splenectomyS/P Jacquie Jacobson MD Work Phone: Start: 82-95-6776Vmpdivgflv exam chest 2 viewsR Kassidy Jacobson MD Work Phone: Start: 70-19-8445Nturqppi screenSHANNON STUDERComment on above:Order Comment: Specimen Type: BLOOD SPECIMENOrdering Facility: [facility] Address:[address] [place] [address] [place] [address] Performed By: #### [id number] ####CC MAIN BLOOD BANKWHITE [facility] [id number] [place] [address] [place] AMERICAStart: 07-50-7409Lj thorax w/o contrast materialM Antonio Zeferino TREASURY CONSULTANT - FLOOR PERSON Work Phone: Start: 00-65-5390Jtmyg ribs uni w/posteroant ch minimum 3 viewsJaveria J Arita DO Work Phone: Start: 47-32-3181Sjemlkdnbboop metabolic panelJoycelyn Smith MD Work Phone: start: 07-28-2024 End: 24-33-8361Ihgj bld gluc mntr dev cleared fda spec home useKajal [place] MD Work Phone: Start: 73-29-6340Klbbgrxdoak rig transoral hypopharynx crv Brian Kerns RN Work Phone: Start: 76-47-2435Jwbiz of thyroid stimulating hormone tshShannon Stacia Springer TREASURY CONSULTANT - FLOOR PERSON Work Phone: Start: 56-59-2150Yqtok depression screening assessment Ibeth HANLEY Work Phone: Start: 04-26-2024 End: 39-31-9717Hkjsh spine thoracic 2 viewsMax Addison MD Work Phone: Start: 09-68-8851Telvkwqgom bloodTommy Guerra DO Work Phone: Start: 59-95-1637Vywunopmjk exam chest single view Tegan J Arita DO Work Phone: Start: 95-54-2833Kwr routine ecg w/least 12 lds w/i&r Tegan J Arita DO Work Phone: Start: 03-17-2024 End: 77-92-7218Hlcfi metabolic panel calcium totalJaveria J Arita DO Work Phone: Start: 26-59-7823Gaozfjjnih microscopic onlyNatashaannon L [facility] Work Phone: Start: 47-96-2844Iyinw dip stick/tablet rgnt auto w/o microscopyShannon L [facility] Work Phone: Start: 53-01-6215Awksk of ironNatashaannon L [facility] Work Phone: Start: 19-47-0921ObgxaizgwoiLiqlwbn [facility] Work Phone: Start: 06-28-4765Qugjbprgwl spect multiple studies Uli Strong MD Work Phone: Start: 48-49-1138Pztpgctzvg agent dna/rna influenza 1st 2 typesJOGEORGETOWN JOVANNASAINT DAVIDStart: 90-68-7509Fehrknvism exam chest 2 viewsJOMADISON HOSPITALSALLYMANStart: 76-11-2213Cgkgz hip unilateral with pelvis 2-3 viewsJOGEORGETOWN JOVANNASAINT DAVIDStart: 63-03-2822Txrzotgzgp exam knee complete 4/more viewsJOBASILIA NUGENTMANStart: 75-81-7276Zss glycosylated device cleared fda home useJOGEORGETOWN JOVANNASAINT DAVIDStart: 22-71-0489Ydsmv 1996 panel - Serum or PlasmaChristopher Jeffy REARDON Work Phone: Start: 49-71-9894IcwmxmxzjokMkqmfoi [facility] Work Phone: Plan of Treatment DateCare ActivityDetailAuthorStart: 43-17-5699Atplalumpxzp 0-64 years Vaccine (3 - PPSV23 if available, else PCV20)Pneumococcal 0-64 years Vaccine (3 - PPSV23 if available, else PCV20)[facility]ITALStart: 01-62-4381Hovsholvxupw 0-64 years Vaccine (3 - PPSV23 or PCV20)Pneumococcal 0-64 years Vaccine (3 - PPSV23 or PCV20)[facility] Centerart: 62-97-8698Kiabqfxtnvza 0-64 years Vaccine (3 of 3 - PPSV23 or PCV20)Pneumococcal 0-64 years Vaccine (3 of 3 - PPSV23 or PCV20)[facility]: 65-19-7876Vannelxuvarx vaccinationPneumococcal Vaccine (3 of 3 - PPSV23 or PCV20)[facility]: 44-49-4261RIxX/Tdap/Td vaccine (3 - Td or Tdap)DTaP/Tdap/Td vaccine (3 - Td or Tdap)[facility]: 85-65-7034Uocpw microalbumin profile DTaP,Tdap,Td Vaccine (3 - Td or Tdap)[facility] Campustart: 11-30-4814Hfbpmxcrz for malignant neoplasm of colonNOFreeman Cancer InstituteStart: 30-10-7443Gcpatogu ScreeningDiabetes ScreeningWayne HealthCare Main Campustart: 59-66-6589Pqmayrdmc for malignant neoplasm of colonFort [facility]voir Community [facility]: 33-56-6841Aowomrgbff MonitoringDepression MonitoringCarilion Roanoke Community Hospitalart: 84-68-2710MOM test (Diabetes, CKD 3-4, OR last GFR 15-59)GFR test (Diabetes, CKD 3-4, OR last GFR 15-59)[facility]: 15-46-5989Nzkhhmjvqj MonitoringDepression MonitoringShenandoah Memorial Hospital: 08-06-2026 End: 67-39-2409Qssmkuu encounter auwashwdb66/16/2026 8:20 AM EDT Office Visit [facility] [address] [place] [address] Ana Laura Aranda, DAYAN [address] [place] [address] NOMS Jeffery DermatologyStart: 07-23-2026 GFR test (Diabetes, CKD 3-4, OR last GFR 15-59)GFR test (Diabetes, CKD 3-4, OR last GFR 15-59)[facility]: 24-12-6822ZZW test (Diabetes, CKD 3-4, OR last GFR 15-59)GFR test (Diabetes, CKD 3-4, OR last GFR 15-59)[facility]: 48-37-1601Ujvap panelLipidsBon [facility] Start: 32-10-2406Awhxkprdgj MonitoringDepression MonitoringCarilion Roanoke Community Hospitalart: 48-21-6648YBB test (Diabetes, CKD 3-4, OR last GFR 15-59)GFR test (Diabetes, CKD 3-4, OR last GFR 15-59)[facility] Hospitalart: 05-30-2026 Screening for malignant neoplasm of colonBon Secours St. Mary's Hospitalart: 91-25-5667RWU test (Diabetes, CKD 3-4, OR last GFR 15-59)GFR test (Diabetes, CKD 3-4, OR last GFR 15-59)[facility] Hospitalart: 30-17-7500Mwyonnbwxs MonitoringDepression MonitoringCarilion Roanoke Community Hospitalart: 12-72-5004MLL test (Diabetes, CKD 3-4, OR last GFR 15-59)GFR test (Diabetes, CKD 3-4, OR last GFR 15-59)[facility] Hospitalart: 26-73-6844Kivejburbk MonitoringDepression MonitoringCarilion Roanoke Community Hospitalart: 09-50-1180Htvofaqiag Monitoring Depression MonitoringCarilion Roanoke Community Hospitalart: 43-66-6008Dadkdexsnr MonitoringDepression MonitoringCarilion Roanoke Community Hospitalart: 51-17-2489VGE test (Diabetes, CKD 3-4, OR last GFR 15-59)GFR test (Diabetes, CKD 3-4, OR last GFR 15-59)[facility] Hospitalart: 08-27-2025 End: 22-83-1704Oissxrfh Biondal8908/27/2025 8:00 AM EST Clinical Support [facility] Part of [address] [place] [address] Ligia Zimmerman, TREASURY CONSULTANT - FLOOR PERSON [address] [place] [address] [address] [place] [address] cath pull post [facility] UROLOGY Part of [place] HospitalComment on above:cath pull post [facility] hospitalStart: 08-25-2025 End: 64-39-5805Jmdvd vaporization of prostate for urine flowCYSTOSCOPY TRANSURETHRAL RESECTION PROSTATE LASER BPH with obstruction/lower urinary tract zhsueaay64/04/2025 10:49 AM ESTTriHealth McCullough-Hyde Memorial Hospitaltart: 08-25-2025 End: 52-86-8319Wuoarcfcc to same day surgery [facility] ORComment on above: CYSTOSCOPY TRANSURETHRAL RESECTION PROSTATE LASER-photovaporization of prostate with greenlight laserStart: 08-25-2025 End: 85-50-5777Zentk vaporization of prostate for urine flowOhiohealth O'Bleness Hospital HospitalStart: 09-83-7155Dkvbpyityf hospital visit by physicianHERKIMER MEM[facility]IAL [facility] ORStart: 96-76-8597WK Controlled (<130/80)BP Controlled (<130/80)[facility]: 74-25-4180zzVG Controlled (<130/80) (Retired)zzBP Controlled (<130/80) (Retired) [facility] Campustart: 08-20-2025 End: 59-86-2726Gadrafs encounter aamyqdthc12/30/2025 11:00 AM EDT Office Visit [facility] Part of [address] [address] Octavio Chatterjee MD [address] [place] [address], [address] [place] [address] one year [facility] Part [facility] CenterComment on above:one year PSAStart: 40-59-7575ADS test (Diabetes, CKD 3-4, OR last GFR 15-59)GFR test (Diabetes, CKD 3-4, OR last GFR 15-59)Bon [facility] HospitalStart: 07-24-2025 Depression MonitoringDepression MonitoringBon [facility] HospitalStart: 23-82-4454Vgumsgjry B vaccine (1 of 3 - 19+ 3-dose series)Hepatitis B vaccine (1 of 3 - 19+ 3-dose series)Bon [facility] HospitalComment on above:Postponed from 1988 (Patient Refused)Start: 07-07-2025 End: 50-23-1739hpgpyipgyp60/16/2025 7:40 AM EDT [facility] [address] [place] [address] Kathy Bravo MD [address] [place] [address] Jul 07 virtualEndocrinologyComment on above:Jul 07 virtualStart: 06-25-2025 End: 52-45-1197Dxhpbpz encounter idwzyjjgg73/04/2025 3:00 PM EDT Office Visit [facility] Part of [address] [place] [address] Octavio Chatterjee MD [address] [facility], [address] [place] [address] 6w symptom checkMERBARBERTON CITIZ[facility] Part [facility] Medical CenterComment on above:6w symptom checkStart: 65-49-0468RDIZN-19 Vaccine ( season) COVID-19 Vaccine ( season)Bon [facility] HospitalStart: 06-22-2025 Influenza vaccinationWayne HealthCare Main Campustart: 97-36-2505Jmcwyl Wellness Visit (Medicare)Annual Wellness Visit (Medicare)Bon [facility] HospitalStart: 86-15-4597Cfqljrupqo MonitoringDepression MonitoringRIVERSIDE REGIONAL MEDICAL [facility]ENTER Start: 32-70-0595Sggtjcexfg A1c owxibbwdawuK4X test (Diabetic or Prediabetic)[facility]ITALStart: 06-03-2025 End: 36-49-6218MHL W Auto Differential panel - BloodCBC with Auto Differential Lab Routine Acute pneumonia Expected: 06/03/2025, Expires: 05/27/2026on [facility] HospitalComment on above:Expected: 06/03/2025, Expires: 05/27/2026Start: 06-03-2025 End: 85-62-7071Aaawnlsmqjvrn metabolic 2000 panel - Serum or PlasmaComprehensive Metabolic Panel Lab Routine Acute pneumonia Expected: 06/03/2025, Expires: 05/27/2026on [facility] HospitalComment on above:Expected: 06/03/2025, Expires: 05/27/2026Start: 06-02-2025 End: 07-72-3506Taqnhpv encounter libvoefaq51/12/2025 3:20 PM EDT Office Visit [facility] [address] [place] [phone] Eliana Springer, TREASURY CONSULTANT - FLOOR PERSON [address] [place] [address] [facility] HospitalStart: 20-73-9678Nkfex BMI ScreeningAdult BMI ScreeningOhio Valley Hospital SystemStart: 13-60-1904Jflvunvrdh ScreeningDepression ScreeningWilson Medical Centertart: 35-73-6150Qgezszj ScreeningTobacco ScreeningWilson Medical Centertart: 18-47-8826Nkujnxfyx vaccinationBon [facility] HospitalStart: 99-74-1460QWW test (Diabetes, CKD 3-4, OR last GFR 15-59)GFR test (Diabetes, CKD 3-4, OR last GFR 15-59)[facility]ITALStart: 23-81-4903Zyvnffck screeningDiabetic retinal examBON TRIHE[facility] HOSPITALComment on above:Postponed from 1987 (Not Indicated)Start: 04-10-2025 End: 21-21-0886fshughozve03/20/2025 3:40 PM EDT [facility]in[facility] [address] [place] [address] Kathy Bravo MD [address] [place], [place] [id number] April 10 340 virtual on [employer] template, thanks!EndocrinologyComment on above:April 10 340 virtual on [employer] template, thanks!Start: 87-47-7138Ypcoykuyly Monitoring Depression MonitoringBON [facility]OSPITALStart: 92-25-0263Gmxoeknk foot examinationDiabetic foot examBON TRI[facility] HOSPITALComment on above:Postponed from 1979 (Not Indicated)Start: 09-01-5477HMqK/Tdap/Td vaccine (2 - Td or Tdap)DTaP/Tdap/Td vaccine (2 - Td or Tdap)[facility] on above:Postponed from 12/07/2023 (Patient Refused)Start: 41-00-9697Gmrne screening for proteinDiabetic Alb to Cr ratio (uACR) testBON [facility] on above:Postponed from 1987 (Not Indicated)Start: 73-46-5761VBL test (Diabetes, CKD 3-4, OR last GFR 15-59)GFR test (Diabetes, CKD 3-4, OR last GFR 15-59)[facility]ENTERStart: 88-86-0018Xhsov BMI ScreeningAdult BMI ScreeningWilson Medical Centertart: 00-10-8055Hngnsyi ScreeningTobacco ScreeningWilson Medical Centertart: 02-20-2025 End: 92-43-9810Tmzloix encounter cryvxgdug66/02/2025 10:20 AM EDT Office Visit Endocrinology [address] [phone] Kathy Bravo MD [address] [id number] f/uEndocrinologyComment on above:f/uStart: 57-16-3012Aghvvnbjww Monitoring Depression MonitoringBon Secours St. Mary's Hospitalart: 48-24-1991Dfrhr panelLipids [facility] Hospitalart: 01-23-2025 End: 90-26-3340Mnkmvhw encounter ixgkfaira73/04/2025 4:00 PM EDT Appointment Gastroenterology [address] [id number] Dariusz Pratt MD [address] [place] [address] IPMN (intraductal papillary mucinous neoplasm) [D49.0]Gastroenterology Comment on above:IPMN (intraductal papillary mucinous neoplasm) [D49.0]Start: 39-15-6646Zbxyr BMI ScreeningAdult BMI ScreeningWilson Medical Centertart: 05-22-1865Myqfasg ScreeningTobacco ScreeningWilson Medical Centertart: 21-24-1988Ppqha BMI ScreeningAdult BMI ScreeningOhio Valley Hospital SystemStart: 79-32-6470Reahtpv ScreeningTobacco ScreeningOhio Valley Hospital SystemStart: 37-08-8715Twycyosjph MonitoringDepression MonitoringRIVERSIDE REGIONAL MEDICAL CENTER Start: 01-05-2025 End: 04-82-5577Djqcycx encounter procedureGastroenterologyStart: 12-24-2024 End: 64-29-5214digmyigngn19/05/2025 10:00 AM EST [facility] [address] [phone] Kathy Bravo MD [address] [place] [address] f/u, SWITCHED TO VIRTUAL OK'D BY DR. BRAVOEndocrinologyComment on above:f/u, SWITCHED TO VIRTUAL OK'D BY DR. BRAVOStart: 00-37-6300Ommfv BMI ScreeningAdult BMI ScreeningOhio Valley Hospital SystemStart: 92-52-0091Sudniyy ScreeningTobacco ScreeningWilson Medical Centertart: 12-22-2024 End: 55-41-7590Kwdrnqj encounter procedureMercy Primary Care TiffinComment on above:6 month checkawv and 6 month check-need album urine orderedStart: 93-17-6707Bgcevkcldt A1c obbtrrwkjbpYnB4EImeylghkt ClinicStart: 12-19-2024 End: 28-38-3385Kheonfy encounter jkrnxfaug43/28/2025 10:00 AM EST Office Visit Endocrinology [address] [place] [address] Kathy Bravo MD [address] [place] [address] f/uEndocrinologyComment on above:f/uStart: 85-71-0398Cybgccqq specific antigen measurementProstate Cancer Screening DiscussionHanover ClinicStart: 11-26-2024 Adult BMI ScreeningAdult BMI ScreeningOhio Valley Hospital SystemStart: 11-26-2024 Tobacco ScreeningTobacco ScreeningProCommunity Regional Medical Centertart: 11-13-2024 Depression MonitoringDepression MonitoringBON TRIHEALTH BETHESDA BUTLER HOSPITALStart: 10-31-2024 End: 51-57-3151Youajm-up jdouqfzwn66/10/2025 4:20 PM EST [facility] Endocrinology [address] [place] [address] Kathy Bravo MD [address] [place] [address] BravoEndocrinologyComment on above:follow up per Dr. BravoStart: 36-82-9394Xggnw BMI ScreeningAdult BMI ScreeningWilson Medical Centertart: 37-11-5858Hyimzje ScreeningTobacco ScreeningWilson Medical Centertart: 03-97-0604Vcjfpy Wellness Visit (Medicare Advantage)Annual Wellness Visit (Medicare Advantage)Bon [facility] HospitalStart: 01-01-2025Medicare Advantage Annual Wellness VisitMedicare Advantage Annual Wellness VisitMercy [facility] West Hospital Start: 81-85-4905Leiidrtfoygcs (ACWY) vaccine (2 - Risk 2-dose series) Meningococcal (ACWY) vaccine (2 - Risk 2-dose series)[facility] Start: 02-12-2468Flbfjqplzgelc Conjugate Vaccine (2 - Risk 2-dose series) Meningococcal Conjugate Vaccine (2 - Risk 2-dose series)[facility] Campustart: 55-56-5051GMH test (Diabetes, CKD 3-4, OR last GFR 15-59)GFR test (Diabetes, CKD 3-4, OR last GFR 15-59)[facility] BUT[facility] HOSPITALStart: 10-07-2024 End: 93-23-5915Rolkxjt evaluation of patient and hephwt1910/07/2024 12:30 PM EST Nurse Visit Diabetic Education Main X20 [address] [place] [address] Dario Hines, SINAI [address] [place] [address] Theresa Lindquistabetic Education Main X20 Comment on above:Theresa TiradoStart: 10-02-2024 End: 03-20-9497xbginwcxte84/12/2024 12:30 PM EST [facility] Diabetic Education [facility] [address] [place] [address] [place] [address] [place] [address] Pre-pumpDiabetic Education Albert B. Chandler Hospitalomment on above:Pre-pumpStart: 09-30-2024 End: 67-55-4840Zimclul encounter gnipihhwo45/10/2024 10:45 AM EST Office Visit General Surgery [address] [address] [place] [address] [place] [address] postopGeneral SurgeryComment on above:postopStart: 09-19-2024 Meningococcal B Vaccine (2 of 5 - Increased Risk Bexsero 3-dose series) Meningococcal B Vaccine (2 of 5 - Increased Risk Bexsero 3-dose series)[facility] Campustart: 29-73-9166Nffnujvhqczaj B Vaccine: Consider Based On Risk (2 of 4 - Increased Risk Bexsero 2-dose series)Meningococcal B Vaccine: Consider Based On Risk (2 of 4 - Increased Risk Bexsero 2-dose series)[facility] Campustart: 08-28-2024 End: 43-87-3615Ktjawigwv to same day surgery iutgcv6208/28/2024 12:15 PM EST - 08/28/2024 5:45 PM EST Surgery Admitting [address] [place] [address] [place] [address] [place] [address] EXPLORATORY LAPAROTOMYAdmittingComment on above:EXPLORATORY LAPAROTOMYStart: 08-28-2024 End: 87-33-1871Gxhomwzzrc dvclimforrsu35/07/2024 12:15 PM EST Anesthesia Event Admitting [address] [place] [address] Harjinder Craig, Research CoordinatorAdmittingStart: 08-28-2024 End: 56-15-9498Thxpzwcpuad laparotomy celiotomy w/wo biopsy [facility] Start: 52-30-6107Icpflcvsim hospital visit by vuvoscrfl44/07/2024 12:15 PM EST Hospital Encounter Admitting [address] [place] [address] [place] [address] [place], [place] [id number] IPMN (intraductal papillary mucinous neoplasm) [D49.0] AdmittingComment on above:IPMN (intraductal papillary mucinous neoplasm) [D49.0] Start: 08-22-2024 End: 22-46-8049Nnkddch evaluation of patient and hysvrr8108/22/2024 1:30 PM EDT Nurse Visit General Surgery [address] [address] Ligia Kerns RN [address] [place] [address] Pt EducationGeneral SurgeryComment on above:Pt EducationStart: 08-22-2024 End: 79-51-3789zjfselejcf02/01/2024 12:30 PM EDT Results Only Cardiology [address] [address] Pre OpCardiologyComment on above:Pre OpStart: 08-22-2024 End: 14-37-7649Vhnpgvn encounter procedureMain [place] A15 Draw StationComment on above:Pre OpStart: 08-22-2024 End: 98-24-8600Kkoccatgdk kkrgkiuqgsui91/01/2024 11:20 AM EDT PAT Pre Anesthesia [address] [place] [address] 7, [address] [address] [place] [address] PRE OPPre AnesthesiaComment on above:PRE OPStart: 08-20-2024 End: 99-32-6642Elflhmh encounter lanihdrno44/30/2024 11:00 AM EDT Office Visit [facility] UROLOGY Part of [address] [place] [address] Octavio Chatterjee MD [address] [facility], [address] [place] [address] 4-6 week Follow up-PSA reminder 07/09 [facility] UROLOGY Part [facility] CenterComment on above:4-6 week Follow up-PSA reminder 07/09 awStart: 08-14-2024 End: 46-76-6996DGB W Auto Differential panel - BloodCOMPLETE BLOOD COUNT AND DIFFERENTIAL Lab Routine IPMN (intraductal papillary mucinous neoplasm) Pre operative examination Expected: 08/14/2024 (Approximate), Expires: 11/13/2024 [facility] HospitalComment on above:Expected: 08/14/2024 (Approximate), Expires: 11/13/2024Start: 08-14-2024 End: 64-78-2130Ysylyatzdyoub metabolic 2000 panel - Serum or PlasmaCOMPREHENSIVE METABOLIC PANEL Lab Routine IPMN (intraductal papillary mucinous neoplasm) Preoperative examination Expected: 08/14/2024 (Approximate), Expires: 11/13/2024 [facility] HospitalComment on above:Expected: 08/14/2024 (Approximate), Expires: 11/13/2024Start: 08-14-2024 End: 82-73-6505LQTISOE BLOOD TYPECONFIRM BLOOD TYPE Blood Bank Routine IPMN (intraductal papillary mucinous neoplasm) Preoperative examination Expected: 08/14/2024, Expires: 11/13/2024leveland ClinicComment on above:Expected: 08/14/2024, Expires: 11/13/2024Start: 08-14-2024 End: 03-59-9953PUXT AND SCREEN,30 DAYTYPE AND SCREEN,30 DAY Blood Bank Routine IPMN (intraductal papillary mucinous neoplasm) Preoperative examination Expected: 08/14/2024, Expires: 11/13/2024leveland ClinicComment on above: Expected: 08/14/2024, Expires: 11/13/2024Start: 92-94-1004Bekxucbnef A1c zghwjetehwzW3M test (Diabetic or Prediabetic)[facility] CENTERStart: 61-64-3146Azcbq panelLipidsBON [facility] NORTHStart: 08-04-2024 End: 60-94-9685Eomfydp encounter cdpgvwcyi96/14/2024 8:00 PM EDT Appointment [facility] [address] [place] [address] Diagnostic [facility] Sleep CenterComment on above:DiagnosticStart: 07-28-2024 End: 68-49-3646Hpsgjuu encounter whzmenxxh74/07/2024 7:30 AM EDT Appointment Gastroenterology [address] [address] Sheyla Mensah MD [address] [address] Type:GastroenterologyComment on above:Type:Start: 07-22-2024 End: 40-73-7397Voqxzpj encounter bzeiddhqt20/01/2024 3:00 PM EDT Office Visit General Surgery [address] [place] [phone] [place] [address] [place] [phone] panc cystGeneral SurgeryComment on above:panc cystStart: 07-22-2024 End: 92-15-8055Foxgsg Ag 19-9 [Units/volume] in Serum or PlasmaSt. Charles Hospital Work Phone: Comment on above:Expected: 07/22/2024, Expires: 10/21/2024Start: 07-17-2024 End: 49-53-3035Lqwvkrm encounter igpckgzzx45/26/2024 1:00 PM EDT Office Visit [facility] UR[facility] Part of [facility] [address] [facility] [address] [place] [address] Octavio Chatterjee MD [address] [facility], [address] [place] [address] 4-6 week Follow up-PSA [facility] UR[facility] of [facility] HospitalComment on above:4-6 week Follow up-PSA reminder 07/09 awStart: 69-82-5645Pikowqgvh B vaccine (1 of 3 - 3-dose series)Hepatitis B vaccine (1 of 3 - 3-dose series)BON [facility]ES[facility] BUTLER HOSPITALComment on above:Postponed from 1969 (Patient Refused)Start: 89-83-2855Kljyj-19 Vaccine ()Covid-19 Vaccine ( season)[facility] Campustart: 06-22-2024 Influenza vaccinationWayne HealthCare Main Campustart: 32-71-7494Tuoxlsejoi Monitoring Depression MonitoringRIVERSIDE REGIONAL MEDICAL CENTERStart: 60-86-4388Cwfsbdjpi vaccinationFlu vaccine (#1)[facility]OSPITALStart: 05-22-2024 End: 73-36-0104Jmetcat encounter hnbeutuqy81/01/2024 12:30 PM EDT Office Visit [facility] [address] [place] [address] Lillian Reid MD [address] [place] [address] re-est [facility] Comment on above:re-est careStart: 05-13-2024 End: 79-94-4556Yqypoiz encounter xybuvnalu05/23/2024 2:20 PM EDT Office Visit [facility] [address] [place] [phone] Eliana Springer, TREASURY CONSULTANT - FLOOR PERSON [address] [place] [address] 6 months and awvMercy Riverton HospitalComment on above:6 months and awvStart: 04-09-2024 End: 64-22-5180Dwnrfzm encounter procedureFostoria Pain ClinicStart: 03-19-2024 End: 60-86-0021Fwvmhgv encounter vistxborv41/29/2024 2:45 PM EDT Office Visit [facility] [address] [place] [phone] Slime Romano, TREASURY CONSULTANT-FLOOR PERSON [address] [place] [phone] [facility] ClinicStart: 02-25-2024 End: 78-92-3347DI Cervical spine ViewsX-ray spine cervical 3 views or less Imaging Routine Cervical radiculitis Expected: 02/25/2024, Expires: 02/24/2025 [facility] Work Phone: Comment on above:Expected: 02/25/2024, Expires: 02/24/2025Start: 02-25-2024 End: 17-56-1237Xywebmz encounter /06/2024 12:30 PM EDT Office Visit [facility] [address] [place] [phone] Joana Stratton MD [address] [place] [phone] [facility] ClinicStart: 01-21-2024 End: 85-36-8351Uqkhwth encounter eqratkuot44/01/2024 12:50 PM EDT Office Visit [facility] [address] [place] [address], [place] [phone] Joana Stratton MD [address] [place] [phone] [facility] ClinicStart: 12-24-2023 End: 92-74-0102Dhtuwwd encounter epkxgeodd44/04/2024 1:00 PM EST Office Visit [facility] [address] [place] [address], [place] [phone] Joana Stratton MD [address] [place] [phone] [facility] ClinicStart: 12-07-2023 DTaP,Tdap and Td Vaccines (2 - Td or Tdap)DTaP,Tdap and Td Vaccines (2 - Td or Tdap)[facility] Centertart: 97-08-5322IQvX/Tdap/Td vaccine (2 - Td or Tdap)DTaP/Tdap/Td vaccine (2 - Td or Tdap)[facility] CENTERStart: 58-15-0166Emizw microalbumin profileDTaP,Tdap,Td Vaccine (2 - Td or Tdap) [facility] ClinicStart: 11-26-2023 End: 39-00-2450Pwirphmic to same day surgery ebtdck0411/26/2023 11:00 AM EST - 11/26/2023 11:10 AM EST Surgery [facility] Surgery [address] [place] [phone] Joana Stratton MD [address] [address] #2 Bilateral Thoracic Medial Branch Block T7-8 and T8-9 [48489 (CPT )][facility] HospitalComment on above:#2 Bilateral Thoracic Medial Branch Block T7- 8 and T8-9 [51537 (CPT )]Start: 11-26-2023 End: 23-85-1149Tes dx/ther agt pvrt facet jt crv/thrc 1 levelINJECTION BLOCK NERVE MEDIAL BRANCH Thoracic spondylosis without myelopathy 11/26/2023 11:00 AM [facility] HOSPITALFOCLEVELAND CLIN[facility] SURGERYStart: 11-26-2023 End: 42-32-6929Bsnuehc encounter vwyclcxbo83/05/2024 11:00 AM EST Procedure visit [facility] [address] [place] [address] [facility] ClinicStart: 77-33-2725Tngivdwoqr hospital visit by fvyumbgkf29/05/2024 11:00 AM EST Hospital Encounter [facility] Surgery [address] [place] [address] Joana Stratton MD [address] [place] [address] [facility] SurgeryStart: 11-21-2023 End: 65-47-7246Otzjrci encounter rfdccolib31/31/2024 2:30 PM EST Office Visit [facility] [address] [facility] [address] [place] [address] Slime Romano, TREASURY CONSULTANT-FLOOR PERSON [address] [facility] [address] [place] [address] [facility] Hospitaltart: 79-94-7315Puffjr Wellness Visit (Medicare Advantage)Annual Wellness Visit (Medicare Advantage)[facility] CENTERStart: 07-12-2023 End: 79-02-6140Dinoosf encounter procedureOttumwa Regional Health CenterfinComment on above:1 month f/uestablish careStart: 07-09-2023 End: 21-73-0890Xvicozu encounter sppznebvw33/18/2023 2:40 PM EDT Office Visit [facility] [address] [phone] Eliana Springer, TREASURY CONSULTANT - FLOOR PERSON [address] [place] [address] right ear impacted painful and muffledRegional Medical Center TiffinComment on above:right ear impacted painful and muffledStart: 06-29-2023 End: 68-34-9257Vavynzr encounter xzmeikxmp48/08/2023 Office Visit Cardiology Uli Strong MD [address] [phone] [facility] C[facility]IOLOGY [facility] Hospitaltart: 06-26-2023 End: 89-40-2435Gvrgshe encounter cykcnqkms55/05/2023 Office Visit Gastroenterology She Hopson, TREASURY CONSULTANT - FLOOR PERSON [address] [address] [facility] Part of [facility] Hospitaltart: 00-58-3450Qtoopnilr vaccinationFlu vaccine (#1)[facility] Hospitalart: 94-09-6507Irsjg panelLipid ScreeningWayne HealthCare Main Campustart: 51-09-3689Vnliyobyd for malignant neoplasm of colonColonoscopyBON [facility] Rita's Medical Centerart: 81-94-4796PSICQ-19 Vaccine (4 - Booster for Moderna series)COVID-19 Vaccine (4 - Booster for Moderna series)[facility] Hospitalart: 12-92-2766XQULP-19 Vaccine (4 - Moderna series)COVID-19 Vaccine (4 - Moderna series)[facility]: 28-09-9543Qwdbd panelLipidsBON [facility] Rita's Medical Centerart: 18-65-3629Lodoqmqtxc A1c zyupxonbmjtL4X test (Diabetic or Prediabetic)[facility]: 81-84-2462Tdsokftip B surface antibody levelLDL CholesterolWayne HealthCare Main Campustart: 28-54-5795Cqqpzscn specific antigen measurementProstate Cancer Screening DiscussionWayne HealthCare Main Campustart: 52-91-3502Fgpcjwxmf for malignant neoplasm of colonBON [facility] Start: 49-62-1563Npicxdroc B vaccine (1 of 3 - 19+ 3-dose series)Hepatitis B vaccine (1 of 3 - 19+ 3-dose series)[facility] Mary's Hospitalart: 1988 Adult BMI Follow Up PlanAdult BMI Follow Up PlanWilson Medical Centertart: 04-04-3372Uttxxe PCP Team Chronic Disease VisitAnnual PCP Team Chronic Disease VisitWayne HealthCare Main Campustart: 50-65-1527Jrubzqs ScreeningAnxiety Screening [facility] Campustart: 21-32-7160Ybcxjbgonx ScreeningDepression Screening [facility] Campustart: 68-54-8895Joirkwxz foot examinationDiabetic Foot Exam [facility] Centertart: 97-59-3895Ngmdoxcw screeningDiabetic retinal exam [facility] CENTERStart: 76-95-7071Cdlvtfhuo C screeningHepatitis C ScreeningWayne HealthCare Main Campustart: 59-52-0211OWH screeningHIV ScreeningWayne HealthCare Main Campustart: 67-17-9742PkfjeeuklyIjnujlbcdfKcvdsbbqr ClinicStart: 1987 Urine screening for proteinDiabetic Alb to Cr ratio (uACR) testBON [facility] Rita's Medical Centerart: 51-35-7809Ystcorfgod ScreeningDepression ScreeningProCommunity Regional Medical Centertart: 42-30-8808Maxszwyc foot examinationDiabetic foot examBON [facility] Rita's Medical Centerart: 76-48-2441Hvwyfyte screeningDilated Retinal ExamWayne HealthCare Main Campustart: 90-60-9771Chdfsuoyq B screeningUrine Albumin:Creatinine Ratio [facility] Campustart: 85-89-0068Pjnwpyhc screeningDiabetic Ophthalmology Exam [facility] Centertart: 80-75-2941Lvjspizra B vaccine (1 of 3 - 3-dose series)Hepatitis B vaccine (1 of 3 - 3-dose series)[facility] Start: 91-44-7822Dnjobhaop for malignant neoplasm of [facility] AcapellaAcapella Respiratory Care Routine 4X Daily until discontinued starting 5Bon [facility] on above:4X Daily until discontinued starting 05/26/2025 End: 29-38-5086Vpxybhhsnldyri, urine, qualitativeBenzodiazepine, urine, qualitative Lab Routine Postlaminectomy syndrome, lumbar region Encounter for long-term opiate analgesic use 1 Occurrences starting 01/21/2024 until 01/20/2025[facility] Work Phone: Comment on above:1 Occurrences starting 01/21/2024 until 01/20/2025enzodiazepines [Presence] in UrineBenzodiazepine, urine, qualitative Lab Routine Postlaminectomy syndrome, lumbar region Encounter for long-term opiate analgesic use 01/21/2024 6:17 PM [facility] End: 56-82-4741Onyvl Culture 1Bon [facility] on above:One Time for 1 Occurrences starting 06/18/2025 until 06/18/2025 End: 30-35-5558LKJ W Auto Differential panel - BloodCBC auto differential Lab Routine Daily for 5 Days starting 05/26/2025 until 05/30/2025, 2 completedBon [facility] on above:Daily for 5 Days starting 05/26/2025 until 05/30/2025, 2 completed End: 61-57-0063Gspuqjiutunzq Metabolic Panel w/ Reflex to MGComprehensive Metabolic Panel w/ Reflex to MG Lab Routine Daily for 5 Days starting 05/26/2025 until 05/30/2025, 2 completedBon [facility]CON[facility] BRAND GROUPComment on above:Daily for 5 Days starting 05/26/2025 until 05/30/2025, 2 completed End: 31-26-9328NR Cervical spine W contrast IVBON [employer] Work Phone: comment on above:1 Occurrences starting 04/23/2024 until 04/23/2024T Chest WO contrastCT CHEST WO CONTRAST Imaging STAT 08/11/2024 1:05 PM EDTBon [employer] HealthCulture, Blood 1Culture, Blood 1 Microbiology STAT 05/26/2025 7:35 AM EDTBon [employer] HealthCulture, Blood 2 Culture, Blood 2 Microbiology STAT 05/26/2025 7:52 AM EDTBon [employer] End: 09-13-2131Jkgljvf, Blood 2Bon SecSOL ELIXIRS HealthComment on above:One Time for 1 Occurrences starting 06/18/2025 until 06/18/2025 End: 36-12-5424Lztxgxo, UrineBon SecSOL ELIXIRS HealthComment on above:1 Occurrences starting 11/27/2024 until 11/27/2024 End: 29-75-6452Korfalh, UrineBon SecSOL ELIXIRS HealthComment on above:1 Occurrences starting 12/16/2024 until 12/16/2024 End: 83-73-8015Kuvbqyo, UrineBon [employer] HealthComment on above:1 Occurrences starting 05/13/2025 until 5Culture, UrineCulture, Urine Microbiology Routine Dysuria 07/31/2025 2:44 PM EDTBDynasil End: 10-22-8664HRQ COMPLETEECG COMPLETE ECG Routine IPMN (intraductal papillary mucinous neoplasm) Preoperative examination 1 Occurrences starting 08/14/2024 until 08/14/2025leveland ClinicComment on above:1 Occurrences starting 08/14/2024 until 08/14/2025 End: 42-00-1857VCR - THERAPEUTIC, EUS, OR TUBE INTERVENTIONSEGD - THERAPEUTIC, EUS, OR TUBE INTERVENTIONS Endoscopy Routine Cyst and pseudocyst of pancreas 1 Occurrences starting 07/22/2024 until 07/22/2025[facility] ClinicComment on above:1 Occurrences starting 07/22/2024 until 07/22/2025 End: 03-91-2509NYV DIAGNOSTICEGD DIAGNOSTIC Endoscopy Routine IPMN (intraductal papillary mucinous neoplasm) 1 Occurrences starting 12/23/2024 until 12/23/2025 [facility] Work Phone: Comment on above:1 Occurrences starting 12/23/2024 until 12/23/2025 End: 02-14-3330BVJ DIAGNOSTICEGD DIAGNOSTIC Endoscopy Routine IPMN (intraductal papillary mucinous neoplasm) 1 Occurrences starting 01/07/2025 until 01/07/2026 [facility] Work Phone: Comment on above:1 Occurrences starting 01/07/2025 until 01/07/2026EKG 12 LeadEKG 12 Lead ECG STAT 03/17/2024 2:02 PM EDTBON [facility] HOSPITALAmplify.LAEKG 12 LeadEKG 12 Lead ECG STAT 06/18/2025 4:28 PM EDTB [employer] End: 58-77-4299Egytwiabpevhlyzl Panel, ShortlistSIERRA VISTA HOSPITAL Triptease [facility] on above:1 Occurrences starting 06/21/2023 until 06/21/2023 End: 37-82-3945Vuepfghyrdghtgwt Panel, Tradoria [facility] on above:1 Occurrences starting 12/16/2024 until 12/16/2024Glucose [Mass/volume] in Serum or PlasmaPOCT glucose Point of Care Testing Routine 4X Daily (AC & HS) until discontinued starting 05/26/2025on [facility] on above: 4X Daily (AC & HS) until discontinued starting 05/26/2025Glucose [Mass/volume] in Serum or PlasmaBon [facility] GR[facility]PSsm [facility] Care on above:4X Daily (AC & HS) until discontinued starting 05/26/2025s Needed until discontinued starting 05/26/2025 End: 55-05-2550ANMOMQOG PACU OXYGEN THERAPY PROTOCOLInitiate PACU Oxygen Therapy Protocol Respiratory Care Routine Continuous until discontinued starting 08/25/2025 [employer] Phone: comment on above:Continuous until discontinued starting 08/25/2025INJECTION BLOCK NERVE MEDIAL BRANCHINJECTION BLOCK NERVE MEDIAL BRANCH Thoracic spondylosisSumma Health Barberton Campus End: 85-70-2211Scdx and TIBCBON AdmetricComment on above:1 Occurrences starting 07/14/2024 until 07/14/2024Lupus AnticoagulantLupus Anticoagulant Lab Routine Other fatigue Chronic pain syndrome 11/30/2023 9:42 AM [facility] AdmetricOxygen therapy [Minimum Data Set]Initiate Oxygen Therapy Protocol Respiratory Care Routine As Needed until discontinued starting 05/26/2025 [facility] GROUPMetropolitan Saint Louis Psychiatric CenterAristo Music Technology on above:As Needed until discontinued starting 05/26/2025Oxygen therapy [Minimum Data Set]Initiate Oxygen Therapy Protocol Respiratory Care Routine As Needed until discontinued starting [facility] on above:As Needed until discontinued starting 08/25/2025PANC ELASTASE, FECALPANC ELASTASE, FECAL Lab Routine Cyst and pseudocyst of pancreas 07/22/2024 4:18 PM EDTCleveland ClinicPositive Expiratory Pressure TherapyPositive Expiratory Pressure Therapy Respiratory Care Routine 0800, 1200, 1600, 2000 (respiratory use only) until discontinued starting 05/26/2025 [employer] GROUPComment on above:0800, 1200, 1600, 2000 (respiratory use only) until discontinued starting 05/26/2025 End: 78-85-4065ZEW [facility] [employer] Work Phone: Comment on above:1 Occurrences starting 07/14/2024 until 07/14/2024ADIOFREQUENCY ABLATION SPINALRADIOFREQUENCY ABLATION SPINAL Postlaminectomy syndrome, lumbar region Encounter for long-term opiate analgesic use Thoracic spondylosis without myelopathySumma Health Barberton CampusREFER FOR ADMIT INTERVIEWREFER FOR ADMIT INTERVIEW Procedures Routine IPMN (intraductal papillary mucinous neoplasm) Preoperative examination Ordered: 08/14/2024 [facility] Work Phone: Comment on above:Ordered: 08/14/2024 End: 47-46-6646Rubblukjibr Panel, Molecular, with COVID-19 (Restricted: peds pts or suitable admitted adults)Bon [employer] GROUPComment on above:One Time for 1 Occurrences starting 06/18/2025 until 06/18/2025 End: 07-31-2025S. pneumoniae, 23 SerotypesBon [facility]AND GROUPComment on above:Once for 1 Occurrences starting 07/31/2025 until 07/31/2025Spirometry panelIncentive spirometry RT Respiratory Care Routine Every 2hr while awake until discontinued starting 08/08/2024on [employer] GROUPComment on above: Every 2hr while awake until discontinued starting 08/08/2024 End: 94-82-1650Iemkyn applicationSplint application Procedures STAT One Time for 1 Occurrences starting 11/30/2024 until 11/30/2024on [employer] [facility] Comment on above:One Time for 1 Occurrences starting 11/30/2024 until 11/30/2024 Tissue Pathology biopsy reportSt. Charles Hospital Work Phone: Comment on above:Release Upon Ordering for 1 Occurrences starting 01/23/2025, 1 completed End: 46-89-9823Ofzwdnye Lab TestUnlisted Lab Test Lab Routine Postlaminectomy syndrome, lumbar region Encounter for long-term opiate analgesic use 1 Occurrences starting 01/21/2024 until 01/20/2025[facility] [employer] SystemComment on above:1 Occurrences starting 01/21/2024 until 01/20/2025Unlisted Lab Test URINE DRUG SCREEN;PAIN MANAGEMENTUnlisted Lab Test URINE DRUG SCREEN;PAIN MANAGEMENT Lab Routine Postlaminectomy syndrome, lumbar region Encounter for long-term opiate analgesic use 01/21/2024 6:17 PM [facility] End: 72-29-1647Ocomocfbgu with MicroscopicUrinalysis with Microscopic Lab STAT One Time for 1 Occurrences starting 08/05/2024 until 08/05/2024on [employer] BRAND GROUPComment on above:One Time for 1 Occurrences starting 08/05/2024 until 08/05/2024 End: 68-90-4659Wivpgvp B12 & FolateBON AdmetricComment on above:1 Occurrences starting 07/14/2024 until 07/14/2024 End: 04-15-5707Xmphthz D 25 HydroxyBON Factorli [facility] HOSPITALComment on above:1 Occurrences starting 07/14/2024 until 07/14/2024 End: 40-82-7368AT Chest PA and LateralXR CHEST 2V FRONTAL/LAT Radiology Routine IPMN (intraductal papillary mucinous neoplasm) Preoperative examination 1 Occurrences starting 08/14/2024 until 09/13/2025leveland ClinicComment on above:1 Occurrences starting 08/14/2024 until 09/13/2025XR Elbow - left 3 Views XR ELBOW LEFT (MIN 3 VIEWS) Imaging STAT 11/30/2024 2[facility] 3 ViewsXR HAND LEFT (MIN 3 VIEWS) Imaging STAT 11/30/2024 2:53 PM [facility] Work Phone: Immunizations Immunization DateImmunizationNotesCare GkuibjxwCqvrmhxi71-42-7822MCO-Vgjarjxpgbe influenzae type b conjugate vaccineL[facility] 7 Work Phone: [facility] HospitalBlskai52-87-4527eaftwlsrjvlfu (MenACWY-TT) vaccine, quadrivalent (MENQUADFI)[facility] 7 Work Phone: [facility] HospitalLjvaqj97-47-4435jzgpoesjhinnm B vaccine, recombinant, OMV, adjuvantedL[facility]des Medical Center 7 Work Phone: [facility] HospitalThhwud29-86-9114mxoyxsaazddy conjugate (PCV20) vaccine, 20 valent (PREVNAR 20)[facility] 7 Work Phone: [facility] Work Phone: [phone]yldb vaccine of unknown formulation and unknown serogroupsMthz ScheduleBon [facility] HospitalYfhqzb53-68-0627jtvpeutnk virus vaccine, unspecified formulationShannon Gian TREASURY CONSULTANT - FLOOR PERSON Work Phone: [facility] CENTERHUJUQP01-27-5931Wvxgbqxpk, injectable, [place] Canine Kidney, preservative free, quadrivalentShannon Gian TREASURY CONSULTANT - FLOOR PERSON Work Phone: BON [facility] BUTL[facility] HOSPITALLZZBER03-48-2879MIDRN-53, MODERNA, ( formula), (age 12y+), IM, 50mcg/0.5mLShannon Gian TREASURY CONSULTANT - FLOOR PERSON Work Phone: [facility]ENTERJethroData [facility] TWQRLF20-60-1089HBISM-93, [facility] BLUE border, Primary or Immunocompromised, (age 12y+), IM, 100 mcg/0.5mLShannon Gian TREASURY CONSULTANT - FLOOR PERSON Work Phone: [facility]ENTERJethroData [facility] HMTDOH17-57-5682RESAT-01, [facility] BLUE [facility], Primary or Immunocompromised, (age 12y+), IM, 100 mcg/0.5mLShannon Gian TREASURY CONSULTANT - FLOOR PERSON Work Phone: [facility] CENTERJethroData [facility] XOAVSG89-91-8773DCVBM-31, [facility] BLUE [facility], Primary or Immunocompromised, (age 12y+), IM, 100 mcg/0.5mLShannon Gian TREASURY CONSULTANT - FLOOR PERSON Work Phone: [facility]ENTERJethroData [facility] WOGMCG64-65-4188uahvkq vaccine recombinantShannon Gian TREASURY CONSULTANT - FLOOR PERSON Work Phone: [facility]ENTERJethroData [facility] JRXPSV62-26-8976kbeqnpgjj virus vaccine, unspecified formulationJoycelyn Smith MD Work Phone: bR[facility] HospitalGC-R[employer] [facility] Stgwdn14-30-5839ezazvnxlq, injectable, quadrivalent, preservative freeShannon Gian TREASURY CONSULTANT - FLOOR PERSON Work Phone: [facility]ENTERJethroData [facility] WKWLUG01-91-0482lyzdwafcp, seasonal, injectableShannon Gian TREASURY CONSULTANT - FLOOR PERSON Work Phone: [facility]ENTERJethroData [facility] DSYVAI38-56-4566wkmhxw vaccine recombinantShannon Gian TREASURY CONSULTANT - FLOOR PERSON Work Phone: [facility]ENTERJethroData [facility] VIJBCO71-00-4351bhfrfacnb, injectable, quadrivalent, preservative freeShannon Gian TREASURY CONSULTANT - FLOOR PERSON Work Phone: [facility] [employer] [facility] JQTCZK96-47-9193fgekwbccz, injectable, quadrivalent, preservative freeShannon Gian TREASURY CONSULTANT - FLOOR PERSON Work Phone: [facility] [employer] [facility] AVEJBF89-95-5557jfeuqkwic virus vaccine, unspecified formulationJoycelyn Smith MD Work Phone: bStoneSprings Hospital CenterQigguh77-37-5483qoflzpmog, injectable, quadrivalent, contains preservativeSboston regional medical centernon [facility] CenterN - [facility] Work Phone: bon [facility]OSPITALRUHDLM98-16-1975wmcyyzytfxcp conjugate vaccine, 13 valentSboston regional medical centernon [facility] - [facility] Work Phone: [facility] CENTERLUSHJA96-17-5866cifxreynfzcu conjugate vaccine, 13 valentSboston regional medical centernon [facility] - [facility] Work Phone: [facility] CENTERQWNTHI14-75-6660fygqczauwapl conjugate vaccine, 13 Remi HANLEY Work Phone: [facility] CampusKcbssq51-96-6270dgihtdyfhfno polysaccharide vaccine, 23 valentSboston regional medical centernon [facility] - [facility] Work Phone: [facility] CENTERELOIUX84-31-9231bcmrqvzerbkk polysaccharide vaccine, 23 Remi HANLEY Work Phone: [facility] CampusBroidj86-08-9198clhwhspsf virus vaccine, unspecified formulationShannon [facility] - [facility] Work Phone: [facility] Work Phone: [phone]n toxoid, reduced diphtheria toxoid, and acellular pertussis vaccine, adsorbedShannon GianParkview Medical Center - [facility] Work Phone: [facility] CENTERTMDUIS11-62-0487mpnfrqixpcoc conjugate vaccine, 13 valentSboston regional medical centernon [facility] - [facility] Work Phone: [facility] Payers DatePayer CategoryPayerPolicy [id number] (Managed Care) [id number] [id number] 2024Medicaid [id number] 2023Medicare [id number] [id number] 1.2.840.037716.1.1[id number] [id number] [id number] [id number] 2..1.191134.3.5[id number] 2..1.318220.3.5[id number] 2..1.356612.3.5[id number] 2..1.199691.3.5[id number] 2..1.645264.3.5[id number] 2.0.1.565718.3.579.2.1304-16-4779Eomkjpz92940377 2.0.1.940930.3.5[id number] 2..1.734975.3.5[id number] 2..1.835488.3.579.2.2323-35-0056Cfyupes86463508 2.16.840.1.881290.3.579.2.0352-25-2807Kpsiqvi76503737 2..840.1.928013.3.5[id number] 2..840.1.999446.3.579.2.0333-31-1177Xummoej77618377 2..840.1.831696.3.579.2.1414-42-7938Oezlamy97247530 2..840.1.054556.3.579.2.623128-78-7845Leibjjg12106808 2.840.1.828127.3.579.2.196049-43-9537Dpmmxvl30298311 2.840.1.739014.3.579.2.669831-44-1443Zrbptwd37770935 2.840.1.387418.3.579.2.799143-31-7587Fmzhbim06300551 2.840.1.509418.3.579.2.942046-55-7405Ycirdpt09912069 2..840.1.777764.3.579.2.985235-36-6292Dvlogmf33187762 2.840.1.016816.3.579.2.200667-04-9748Mxujlwf93560143 2.840.1.053149.3.579.2.005586-95-1328Rmtnfpb04091672 2.840.1.705592.3.579.2.666209-00-1651Ezswhfe81348827 2.840.1.578452.3.579.2.151798-15-7441Mkdolnf97879182 2.840.1.280849.3.579.2.640724-99-4336Lejhgzq50188934 2.16.840.1.270547.3.579.2.282931-37-9210Tbvylpx6127760 2.16.840.1.858437.3.579.2.988271-98-2171Obzwolb284394 2.16.840.1.837575.3.579.2.384253-50-2202Nkkltnc36984523 2.16.840.1.057550.3.579.2.426342-96-1568Vuxhyvk66072683 2..840.1.538652.3.579.2.584990-05-2956Itomliv636269158 2..840.1.894806.3.579.2.445171-22-2891Lwclftt925945897 2.840.1.970498.3.579.2.25954-33-6508Yldturf433894701 2..840.1.126627.3.579.2.36517-99-9758Ptnytqd591012753 2..840.1.977389.3.579.2.28229-04-5265Hofpccc392531039 2.16.840.1.140644.3.579.2.64292-15-7087Rcprcrl680810136 2..840.1.466517.3.579.2.64891-19-6151Otibgpw107980834 2..840.1.162899.3.579.2.66599-49-2411Pjklwsk864763402 2..840.1.392744.3.579.2.44330-81-1647Pxvwjll029386114 2.16.840.1.356437.3.579.2.51485-26-9042Ntwzeaw389491868 2..840.1.760477.3.579.2.43911-59-7969Ahitgik40036552 2.16.840.1.715020.3.579.2.59398-12-8748Qvlszgh99901409 2.16.840.1.714822.3.579.2.099242-55-5110Awzbqcj64314732 2..840.1.078431.3.579.2.17397-25-2383Qtypgeb47568970 2..840.1.159668.3.579.2.75372-43-4960Ccvkwjq45071913 2..840.1.103805.3.579.2.22549-27-4403Pkmyjnx07140512 2..840.1.019246.3.579.2.32607-57-7698Tiplvsc55220607 2..1.882391.3.579.2.47820-68-2893Zjnllvn45653637 2..840.1.063468.3.579.2.27554-52-2046Dmchrxa17061473 2..840.1.071296.3.579.2.45765-20-5555Ixeogpc69058500 2..0.1.165009.3.579.2.26352-96-9691Hglktii79859535 2..0.1.796945.3.579.2.83308-37-6154Zwuhwds68100270 2..840.1.700493.3.579.2.78753-94-7329Rvdipfy95470716 2..840.1.831553.3.579.2.61766-09-6408Elzngnf30018336 2..840.1.804461.3.579.2.04152-29-5413Lmtbrmx19572156 2.16.840.1.317562.3.579.2.13676-15-8413Ajwmvrz67162044 2.16.840.1.809384.3.579.2.95740-26-1337Cesgczr44784215 2.16.840.1.535778.3.579.2.33853-31-3876Lewezhc79857542 2..840.1.405658.3.579.2.67648-75-3632Zqsgdqr98732373 2..840.1.076934.3.579.2.32506-34-6635Lmrnqyc93175216 2.16.840.1.639680.3.579.2.173 Social History DateTypeDetailFacilityStart: 04-23-2023 End: 60-06-6026Rofeqyr smoking status NHISNever smoked tobaccoRIVERSIDE REGIONAL MEDICAL CENTERStart: 04-23-2023 End: 83-07-7152Nxunnam use and exposureSmokeless tobacco non-userBon Secours St. Mary's Hospitalart: 06-21-2023 End: 92-43-4540Bbywxnn intakeEx-drinker (finding)[facility] Hospitalart: 04-23-2023 End: 47-15-4830Batvadg SDOH Alcohol Kyocxikhj3CTJ [facility]OSPITALStart: 53-83-0056Ztvklds SDOH Alcohol Std Asfhvn8ADZRIVERSIDE REGIONAL MEDICAL CENTERStart: 95-00-2443Uonxjrx SDOH Zvybjeqot1OZX [facility]OSPITALStart: 04-23-2023 History SDOH Transport Non-Ksz6SLF [facility] Centerart: 18-11-2345Adsonmh Commenton occasionBon Secours St. Mary's Hospitalart: 97-84-7872Zuy Assigned At Not on fileBon Secours St. Mary's Hospitalart: 05-19-2023 End: 46-25-2052Qnnkyrv of Social functionBon Secours St. Mary's Hospitalart: 05-19-2023 End: 15-45-3206Pmswxck Use Disorder Identification Test - Consumption [AUDIT-C] [facility] HEALTHHow often to you have a drink containing alcohol?Never ALTAGRACIA FERNANDEZMilaap [employer] HEALTHStart: 01-03-2023 End: 54-56-2502Ffs many standard drinks containing alcohol do you have on a typical day?Patient does not drinkBON Admetric(I/We) worried whether (my/our) food would run out before (I/we) got money to buy more.Never trueBON CHAPITO Natural[employer] MediaAt any time in the past 12 months, were you homeless or living in longterm [including now]?NoBON AdsWizzMARIBELL Triptease HEALTHTobacco smoking statusNo Smoking Status EnteredExecutive [facility] Maurice Tobacco smoking status NHISTobacco smoking consumption unknownWayne HealthCare Main Campustart: 10-24-2023 End: 18-64-2373Jjwubdl intakeLifetime non-drinker (finding)[facility] SystemStart: 42-24-0849Wrn assigned at [facility] Hospitaltart: 36-09-0384Lhppgp identityIdentifies as male gender (finding)[facility] Start: 44-94-4235Calrfb orientationHeterosexual (finding)[facility] Main Campustart: 02-69-3219XvoYjoo (finding)Altagracia Euclid Systemsbecca [employer] LinesNEGATED: Highlighted row Start: NINFHistory of tobacco usePassive smokerMercy Health West Hospital Medical Equipment Procedure CodeEquipment CodeEquipment Original TextEquipment IdentifierDatesUse to check sugars once a [id number]: 08-22-2024 End: 32-64-1381Mms with insulin 5 times [id number]: 45-85-8947Owk to check sugars once [id number]: 78-22-8090Fzb to check sugars once a day [id number]: 40-73-3216Lmm to check sugars 4 times daily.[id number]: 09-20-2024 Goals DatePatient GoalDesired Activity/StatePersonal health goalComment on above: Would like to start walking dogs againComment on above: Would like to start walking dogs again Functional Status DateAssessmentResultFaLewis and Clark Specialty Hospital Clinical Notes 07-05-2023 to 08-25-2025 Note Date & CnqeYfwfZzhrcefs29-11-3242 History of Present illness Narrative* Ángel Bazan RN - 08/25/2025 1:15 PM EST Discharge Criteria Inpatients must meet Criteria 1 through 7. All other patients are either YES or N/A. If a NO is chosen then Anesthesia or Surgeon must be notified. 1. Minimum 30 minutes after last dose of sedative medication. Yes 2. Systolic BP between 90 - 160. Diastolic BP between 60 - 90. Yes 3. Pulse between 60 - 120 Yes 4. Respirations between 8 - 25. Yes 5. SpO2 92% - 100%. Yes 6. Able to cough and swallow or return to baseline function. Yes 7. Alert and oriented or return to baseline mental status. Yes 8. Demonstrates controlled, coordinated movements, ambulates with steady gait, or return to baseline activity function. Yes 9. Minimal or no pain or nausea, or at a level tolerable and acceptable to patient. Yes 10. Takes and retains oral fluids as allowed. Yes 11. Procedural / perioperative site stable. Minimal or no bleeding. Yes 12. If GI endoscopy procedure, minimal or no abdominal distention or passing flatus. Yes 13. Written discharge instructions and emergency telephone number provided. Yes 14. Accompanied by a responsible adult. Yes-son, ASHLEY * Che Buck RN - 08/25/2025 11:55 AM EST Pt wakes to voice, opens mouth to command, oral airway removed without difficulty. * Joycelyn Cheatham RN - 08/19/2025 12:57 PM EDT Patient instructed on the pre-operative, intra-operative, and post-operative process. Patient instructed on NPO status. Medication instructions and pre operative instruction sheet reviewed with the patient. Patient had last dose of Nucala 08/02/25. Patient will hold B complex vitamin from today, till after procedure. Patient will take Promethazine, atorvastatin, fenofibrate, amlodipine, keflex, bactrim, omeprazole and tramadol with a small sip of water the morning of procedure prior to arrival to the hospital. Patient verbalized understanding. Patient had questions about testing and appt. With Dr. Ellington. I transferred him to Dr. Ellington's office. * Joycelyn Cheatham RN - 07/29/2025 8:34 AM EDT Patient informed me he needed to reschedule the procedure for a different day. I transferred the call to Dr. Ellington's office for him to alert staff of his need. He verbalized understanding. documented in this encounterBon [facility]11-04-[facility] Hospital Discharge instructions* Discharge Instructions* Ángel Bazan RN - 08/25/2025 12:30 PM EST SAME DAY SURGERY DISCHARGE INSTRUCTIONS 1. Do not drive or operate hazardous machinery for 24 hours. 2. Do not make important personal or business decisions for 24 hours. 3. Do not drink alcoholic beverages for 24 hours. 4. Do not smoke tobacco products for 24 hours. 5. Eat light foods (Jell-O, soups, etc....) and drink plenty of fluids (water, Sprite, etc...) up to 8 glasses per day, as you can tolerate. 6. Limit your activities for 24 hours. Do not engage in heavy work until your surgeon gives you permission. 7. Patient should not be left alone for 12-24 hours following surgical procedure. 8. Wash hands before and after incision care. It is important to practice good personal hygiene during the post op period. 9. Call your surgeon for any questions regarding your surgery. CYSTOSCOPY DISCHARGE INSTRUCTIONS Possible burning during urination and/or blood tinged urine. Drink 6-8 glasses of water for the next day or so. (This helps to flush the urinary tract.) Call Dr. Chatterjee ([phone]) if you develop: Fever over 100 degrees Prolonged soreness/pain Unusual bleeding/bruising Unable to urinate or if urine is bloody You cannot pass urine 8 hours after the test. You have pain in your belly or your back just below your rib cage. (This is called flank pain.) You have frequent urge to urinate but can pass only small amounts of urine. Call Dr. Chatterjee office for follow-up appointment ([phone]). Pain pill given at 12:35 PM. (Oxycodone 5mg) [place] Catheter Care Instructions A urinary catheter is used when you cannot urinate by yourself. This may occur because of medical conditions, such as prostate enlargement and incontinence, or after surgery. Your doctor will decide how long you need to have the catheter. To care for your catheter: Make sure that urine is flowing out of the catheter into the drainage bag. Do not loop or kink the tubing so urine can flow out of catheter into drainage bag. Check the area around the urethra for inflammation or signs of infection, such as irritated, swollen, red or tender skin at the insertion site or drainage around the catheter. Keep the urinary drainage bag below the level of the bladder. Make sure that the urinary drainage bag does not drag and pull on the catheter. Do not let the drainage bag touch or lie on the floor. Cleaning the catheter: Always wash your hands before and after caring for your catheter. Clean the area around the drainage tube twice each day. Use soap and water to carefully wash around the drainage tube. Rinse well and dry with a clean towel. Do not tug or pull on the drainage tube. Caring for the drainage bag: Always wash your hands before and after emptying your drainage bag. Avoid disconnecting the catheter from the tubing unless instructed to do so by your doctor. Do not allow the ends of the tubings to touch anything. Clean the ends with a new alcohol pad or as directed by your doctor before you reconnect them. Empty the drainage bag when needed. Empty the bag every 3-6 hours or when it is half to two-thirds full. You have pain in your belly or your back just below your rib cage. (This is called flank pain.) documented in this encounterBon [facility]10-17-2025 History of Present illness Narrative* DAYAN Stovall - 08/07/2025 8:10 AM EDT Skin Check Location: Patient requests a skin examination from the waist up; patient has multiple spots of concern on the face Dermatologic history: history of Actinic Keratosis Last visit: 5 years ago Established patient of Mge Joya MD. Last seen 05/17/2020 *currently on [...] Next Visit: 1 year documented in this encounterPhelps HealthRtvukpocbu23-59-0797 NoteLima Memorial Hospital09-16-2025 History of Present illness Narrative* Kathy Bravo MD - 07/07/2025 7:39 AM EDT Images from the original note were not included. REASON FOR CONSULTATION: Pancreatic diabetes July 07, 2025 Virtual visit I have communicated my name and active licensure. The patient's identity and physical location wereverified at the time of this visit. Either the patient or their legal strategic partnership representative has been informed of the risks and benefits of -- and alternatives to -- treatment through a remote evaluation andconsents to proceed with the evaluation remotely. 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 - high stress - going through divorce - special need dog was sent to the [employer] to restore [employer] - he drank a powerade zero and [...] 4 tablets by mouth as needed. Insulin [place], Disposable, (BD ULTRAFINE III MINI PEN) 31 gauge x 3/16 Use with insulin 5 times daily rpwjrs-dglylhex-wsqipxo (CREON 36) 36,000-114,000- 180,000 unit delayed release [...] q6hr, PRN,# 1 EA, 0 Refill(s), Pharmacy: [address] amitriptyline (ELAVIL) 50 mg tablet Take 1 tablet by mouth daily at bedtime. amLODIPine (NORVASC) 2.5 mg tablet Take 1 tablet by mouth once daily. atorvastatin (LIPITOR) 40 mg tablet Take 1 tablet by mouth once daily. azelastine 0.1% nasal spray Use 1 [place] in each nostril two times a day. [...] MD July 07, 2025 documented in this encounterMer[facility]09-10-2025 Telephone encounter Note * Telephone Encounter - Abimbola Raines - 07/01/2025 11:48 AM EDT July 01, 2025 11:48 AM Last encounter Visit on 03/31/2025 (with Kathy Bravo) [facility] [phone] Successfully transmitted Abimbola Diego Diplomatic Courier II [facility] F-20 [facility]09-10-2025 Miscellaneous Notes* Telephone Encounter - Abimbola Raines - 07/01/2025 11:48 AM EDT July 01, 2025 11:48 AM Last encounter Visit on 03/31/2025 (with Kathy Bravo) Fax TRELL clinical notes to [facility] to [phone] Successfully transmitted Abimbola Diego Diplomatic Courier II [facility] F-20 documented in this encounterMercy Health West Hospital09-05-2025 Telephone encounter Note * Telephone Encounter - Conner Pratt MA - 06/26/2025 8:12 AM EDT Images from the original note [...] Med Name: INSULIN LISPRO 100 UNIT/ML PEN] 15mL 1 Sig: USE UP TO 30 UNITS [...] on file in the last 12 months [facility]09-05-2025 Miscellaneous Notes* Telephone Encounter - Conner Pratt MA - 06/26/2025 8:12 AM EDT Images from the original note [...] Med Name: INSULIN LISPRO 100 UNIT/ML PEN] 15mL 1 Sig: USE UP TO 30 UNITS [...] the last 12 months documented in this encounterMercy Health West Hospital08-28-2025 Hospital Discharge instructions* Discharge Instructions* Dmitry Tierney MD - 06/18/2025 6:30 PM [...] acetaminophen (Tylenol) unless prescribed medications that have acetaminophenor ibuprofen (or similar medications) in it. PLEASE RETURN TO THE EMERGENCY DEPARTMENT IMMEDIATELY for worsening symptoms, shortness of breathing, change in the amount of sputum that you cough up or a change in the color of your sputum, using your inhaler more frequently or if your inhaler only lasts up to 2 hours (if given an inhaler), or ifyou develop any concerning symptoms such as: high [...] or other any other care or concern. * Attachments The following attachments cannot be sent through Care Everywhere. * Pneumonia ([place]) documented in this encounterBon [facility]08-22-2025 Telephone encounter Note* Telephone Encounter - Brandie Abimbola Gary - 06/12/2025 4:26 PM EDT Physician Order form received from [employer] for Insulin pump supplies. Last encounter Visit on 03/31/2025 (with Kathy Bravo) Form completed and signed fax to [phone] Successfully transmitted Index jesika chart Abimbola Diego Diplomatic Courier II [facility] F-20 [facility]08-22-2025 Miscellaneous Notes* Telephone Encounter - DiegoAbimbola Florence - 06/12/2025 4:26 PM EDT Physician Order form received from [employer] for Insulin pump supplies. Last encounter Visit on 03/31/2025 (with Kathy Bravo) Form completed and signed fax to [phone] Successfully transmitted Index jesika chart Abimbola Diego Diplomatic Courier II [facility] F-20 documented in this encounterMercy Health West Hospital08-09-2025 History of Present illness Narrative* Marleen Ramirez RN - 05/30/2025 10:53 PM EDT Provider is aware of that patient is wanting home medications, provider to address needs as soon asable. * Marleen Ramirez RN - 05/30/2025 6:40 PM EDT Went to bedside to administer tramadol and tylenol for pain. Patient refused medications stating tramadol isnt going to cut it anymore. I am having severe 10/10 pain and need something stronger Head Of Housekeeping did update provider on patient's request for stronger pain medications and refusal to take tramadol. * Benoit Rivera - 05/30/2025 4:47 PM EDT Spiritual Services Interventions RW1/RW1 05/30/2025 Benoit Loralakshmi Petty 54 y.o. year old male Encounter [...] him sharing his intention to harm himself. Eye Technician served the ministry of presence and relayed this information to the doctor. was anxious and tearful, and expressed gratitude. documented in this encounterBon [facility] History of Present illness Narrative* Sneha Sims RN - 05/27/2025 12:56 PM EDT Head Of Housekeeping went over discharge instructions with pt at this time. Head Of Housekeeping educated pt on new medicationsand possible side effects. Pt educated on ATB therapy and to finish full course and to look for increasing signs of infection. Pt verbalized understanding. Pt walked down to private car with pt belongings in hand. * Sneha Sims RN - 05/27/2025 10:56 AM EDT Pt's FSBS is 66, orange juice given at this time. * Obinna Landry RD, LD - 05/27/2025 8:52 AM EDT Nutrition Assessment Type and Reason for Visit: [...] current diet Obinna Landry RD, [place] Contact: [phone] * Sneha Sims RN - 05/27/2025 8:04 AM EDT Head Of Housekeeping to bedside to complete morning assessment. Upon entry to room, pt in bed awake, respirationseven and unlabored while on room air. Vitals obtained and assessment completed, see flow sheet for details. Pt is A&Ox4. Pt complaining of chronic pain, prn pain medication to be givens shortly. Lung sounds are clear throughout. Pt has insulin pump running. Pt updated on plan of care and whitebo olesya updated. Pt denies further needs from chief writer at this time. Call light in reach. Care ongoing. * Nikki Baca APRN - RAMSEY - 05/27/2025 6:42 AM EDT Progress Note SUBJECTIVE: Patient seen for [...] Well developed, well nourished with no malnutrition Call Person consult initiated I/O Daily weight Monitor Daily [...] Plan is present, Code Status is documented, orsurrogate decision maker is listed in the patient's [...] medical record. [DOES NOT SATISFY MIPS PERFORMANCE] Nikki Baca APRN - RAMSEY , JOCELYN SULLIVAN-C Hospitalist Medicine 05/27/2025, 6:42 AM Cosigned by Irvin Shepard MD at 05/27/2025 12:49 PM EDT Associated attestation - Irvin Shepard MD - 05/27/2025 12:49 PM EDT Images from the original note were not included. [address], [address] Attestation Patient: Thomas Petty Date of Admission: 05/25/2025 5:23 PM Hospital Day # 2 Date of Evaluation: 05/27/2025 I personally evaluated and examined the patient [id number] in conjunction with the PA/PREDICTIVE MAINTENANCE TECHNICIAN and agree with the management and dispostition of the patient. Please see the PA/PREDICTIVE MAINTENANCE TECHNICIAN's note for full details.My greenfield findings are: SUBJECTIVE: Patient seen for follow up of Acute pneumonia. Patient seen and examined at the bed side , no new acute events overnight and no new complains noted. VSS, afebrile.Notes from nursing staff and Consults had been reviewed, and the overnight progress had been checked with the nursing staff as well. Hispain has nearly completely resolved and his breathing [...] Blood Count: Recent Labs 05/25/25 17505/26/25 0535 05/27/25 0545 WBC 12.5* 11.5* 10.9 RBC 4.16* 4.20* 3.90* HGB 12.2* 12.1* 11.3* HCT 37.2* 37.7* 36.4* MCV 89.4 89.8 93.3 RDW 13.5 13.7 14.3 PLT 433 452 396 Recent Labs 05/25/25 17505/26/25 0535 05/27/25 0545 NEUTROABS 7.20 6.25 5.69 [...] with the plan as outlined in the PREDICTIVE MAINTENANCE TECHNICIAN/PA's note Disposition: Discharge plan is pending Please note that this chart was generated using voice recognition WebCurfewon dictation software. Although every effort was made to ensure the accuracy of this automated tracing lathe set up operator, some errors in tracing lathe set up operator may have occurred. Irvin Shepard MD 05/27/2025 12:48 PM * Rosenda Davis RN - 05/26/2025 9:58 PM EDT Patient resting comfortably at this time. Patient alert & oriented x4. Patient able to answer all questions appropriately and follow commands. Patient reports 6/10 pain but states this is normal pain for him. Breathing regular and unlabored, on room air. Bed alarm on, bed locked, gripper socks on, call light within reach and able to use appropriately. Plan of care ongoing. * Jaylene Shahid - 05/26/2025 8:24 PM EDT Patients monitor read 134 when TABULATING SUPERVISOR checked his blood sugar with our meter. Our meter read 103. Patient states that he is going to calibrate his monitor/insulin pump to match our reading of 103. * Clementina Ahmuada RN - 05/26/2025 12:[address] Toscano in to see pt. * Edith George - 05/26/2025 12:06 PM EDT Spiritual Services Interventions 0318/0318-01 05/26/2025 Edith Petty [...] review/Legacy Outcome: (P) Engaged in conversation, Encouraged * Clementina Ahumada RN - 05/26/2025 10:38 AM EDT Received response from Dr. Toscano acknowledging surgery consult. * Clementina Ahumada RN - 05/26/2025 10:35 AM EDT Pt stated I feel great when discussing symptoms. Pt spoke of possible going home today. Head Of Housekeeping explained that he would likely not leave after less than 12 hours in the hospital and he still needed to see the surgeon. Pt and significant other stated understanding. Updated them with the name of thesurgeon that would be coming to see him today. Both were thankful for information. * Pilo Landry, PT - 05/26/2025 8:53 AM EDT [facility] Inpatient/Observation Date: 05/26/2025 Patient Name: Thomas [...] PT Date: 05/26/2025 Cosigned by Rosenda Rankin, TREASURY CONSULTANT - FLOOR PERSON at 05/26/2025 9:57 PM EDT * Toshia Waters, OT - 05/26/2025 8:26 AM EDT [facility] Inpatient/Observation/Outpatient Rehabilitation Date: 05/26/2025 Patient Name: Thomas Petty [x] Inpatient Acute/Observation [] Outpatient : 1970 [x] Pt does not require skilled services due to: Pt reports he is independent in room for ADLs and functional transfers / mobility. No skilled occupational therapy recommended at this time. Toshia Waters, WILL Date: 05/26/2025 Cosigned by Rosenda Rankin APRN - CNP at 05/26/2025 9:56 PM EDT * Tabatha Cartagena APRN - CNP - 05/26/2025 6:26 AM EDT Progress Note SUBJECTIVE: Patient seen for [...] Well developed, well nourished with no malnutrition Call Person consult initiated I/O Daily weight Monitor Daily [...] Full Code Disposition: Discharge plan is pending [facility] Advanced Care Planning documentation: [x] I have confirmed that the patient's Advance Care Plan is present, Code Status is documented, orsurrogate decision maker is listed in the patient's [...] record. [DOES NOT SATISFY MIPS PERFORMANCE] NATE LEWIS CNP , JOCELYN SULLIVAN-C Hospitalist Medicine 05/26/2025, 9:08 AM Cosigned by Irvin Shepard MD at 05/26/2025 5:57 PM EDT Associated attestation - Irvin Shepard MD - 05/26/2025 5:57 PM EDT Images from the original note were not included. [address], [address] Attestation Patient: Thomas Petty Date of Admission: 05/25/2025 5:23 PM Hospital Day # 1 Date of Evaluation: 05/26/2025 I personally evaluated and examined the patient [id number] in conjunction with the PA/PREDICTIVE MAINTENANCE TECHNICIAN and agree with the management and dispostition of the patient. Please see the PA/PREDICTIVE MAINTENANCE TECHNICIAN's note for full details.My greenfield findings are: SUBJECTIVE: Patient seen for [...] with the plan as outlined in the PREDICTIVE MAINTENANCE TECHNICIAN/PA's note Disposition: Discharge plan is pending Please note that this chart was generated using voice recognition WebCurfewon dictation software. Although every effort was made to ensure the accuracy of this automated tracing lathe set up operator, some errors in tracing lathe set up operator may have occurred. Irvin Shepard MD 05/26/2025 5:57 PM * Jaylene Shahid - 05/26/2025 12:00 AM EDT Patients blood sugar is 82 per patients [...] sugar is low and/or dropping. RN aware. * Cristina Moreau RN - 05/26/2025 12:00 AM EDT Patient arrived to room from ED, chief writer received report from ED Nurse, Yesenia RAWLS. Patient arrives to room A/O x4. Patient ambulated to bed and tolerated well. Admission navigator completed and medications reviewed with patient. Vital signs as charted. Patient requesting pain medications and deniesany other needs at this time. Patient resting comfortably. gripper socks on, Bed locked, call light within reach. Plan of care ongoing. documented in this encounterBon [facility] Hospital Discharge instructions* Discharge Instr - Activity* Sneha Sims RN - 05/27/2025 12:33 PM EDT As tolerated * Discharge Instr - Diet* Sneha Sims RN - 05/27/2025 12:33 PM [...] *General, carb control diet documented in this encounterBon [facility] Hospital course Narrative* Nikki Baca, NATE - FLOOR PERSON - 05/27/2025 11:43 AM EDT Images from the original note [...] were increased from baseline with an alk phosphataseof 145 ALT of 91 and AST of [...] he will follow-up with primary care. Consultants: Dr.Patterson Gen Surg Procedures: none Complications: none Discharge [...] Pain to right upper quadrant. FINDINGS: LIVER: Theliver demonstrates normal echogenicity. No intrahepatic biliary ductal dilatation. No mass. BILIARYSYSTEM: Gallbladder is surgically absent. The common bile [...] CHEST 05/25/2025 11:54 pm COMPARISON: 08/08/2024 HISTORY: ORDERINGSYSTEM PROVIDED HISTORY: rigth lower lung pain with inspiration TECHNOLOGIST PROVIDED HISTORY: rigth lower lung pain with inspiration FINDINGS: Spinal stimulator device noted. Sternal fixation plate n oted. Vertebral body cement noted within the midthoracic [...] been removed and the bile ducts are normalcaliber. The pancreas has been partially resected with surgical clips along the head region which is unchanged. The spleen has been removed. The adrenals are normal. The kidneys are normal size with mild perirenal stranding around both kidneys which is more prominent with no hydronephrosis, renal stone, or mass. The ureters are normal caliber. GI/Bowel: There is mild feces scattered in the colon.There are surgical sutures along the cecum and the appendix not visualized which is unchanged. The small bowel is normal caliber with no bowel wall thickening and the mesentery is unremarkable Pelvis: The prostate gland is mildly enlarged with radium implants in the gland which is unchanged. There is mild fat density along the inguinal regions bilaterally which is unchanged with no bowel loops inthe area. There is no adenopathy or ascites. [...] unchanged. Perirenal stranding around both kidneys which ismore prominent could be due to progressive scarring or early inflammatory changes with no hydronephrosis or urinary obstruction. Recommend correlating with a urinalysis. Previous appendectomy which is unchanged and mild constipation with no obstruction. Mild prostatic enlargement and radium implants in the gland which is unchanged Questionable small inguinal hernias bilaterally which is unchangedPrevious vertebroplasty at L3 which is unchanged Mild [...] doses CHANGE how you take these medications zzagig-wvageaub-lmneeni 63211-684004 units Cpep delayed release capsule Commonly known as: CREON Creon 71429 units oral delayed release capsule: TAKE 2 [...] PRN, # 1 EA, 0 Refill(s), Pharmacy: [address] promethazine 25 MG tablet Commonly known as: PHENERGAN Take 1 tablet by mouth 4 times daily as needed for Nausea tamsulosin 0.4 MG capsule Commonly known as: FLOMAX Take 1 capsule by mouth daily ziprasidone 40 MG capsule Commonly known as: GEODON * This list has 2 medication(s) that are the same as other medications prescribed for you. Read thedirections carefully, and ask your doctor or other care provider to review them with you. STOP taking these medications Zinc 30 MG Tabs Where to Get Your Medications These medications were sent to [facility] [id number] [place] [address] [address] [facility] [phone] F [phone] [address] [facility] [address] amoxicillin-clavulanate 875-125 MG per tablet doxycycline hyclate 100 MG capsule Patient Instructions: Activity: activity as tolerated Diet: regular diet Wound Care: none needed Other: None Disposition: Discharge to Home Follow up: Patient will be followed by Eliana Springer APRN - CNP in 1-2 weeks CORE MEASURES on Discharge (if applicable) JESSICA/ARB in CHF: NA Statin in MT: NA ASA in MT: NA Statin in CVA: NA Antiplatelet in CVA: NA Total time spent on discharge services: 40 minutes Including the following activities: Evaluation and Management of patient Discussion with patient and/or surrogate about current care plan Coordination with Case Management and/or Silver Recovery Operator Coordination of care with Consultants (if applicable) Coordination of care with Receiving Facility Physician (if applicable) Completion of DME forms (if applicable) Preparation of Discharge Summary Preparation of Medication Reconciliation Preparation of Discharge Prescriptions Signed: Nikki Baca, TREASURY CONSULTANT - FLOOR PERSON, TREASURY CONSULTANT, PREDICTIVE MAINTENANCE TECHNICIAN-C 05/27/2025, 11:43 AM Please note that this chart was generated using voice recognition WebCurfewon dictation software. Although every effort was made to ensure the accuracy of this automated tracing lathe set up operator, some errors in tracing lathe set up operator may have occurred. Cosigned by Irvin Shepard MD at 05/27/2025 12:49 PM EDT Associated attestation - Irvin Shepadr MD - 05/27/2025 12:49 PM EDT Images from the original note were not included. [address], [address] Attestation Patient: Thomas Petty Date of Admission: 05/25/2025 5:23 PM Hospital Day # 2 Date of Evaluation: 05/27/2025 I personally evaluated and examined the patient [id number] in conjunction with the PA/PREDICTIVE MAINTENANCE TECHNICIAN and agree with the management and dispostition of the patient. Please see the PA/PREDICTIVE MAINTENANCE TECHNICIAN's note for full details.My greenfield findings are: Admission date: 05/25/2025 Discharge [...] care plan Coordination with Case Management and/or Silver Recovery Operator Coordination of care with Consultants (if applicable) [...] this chart was generated using voice recognition WebCurfewon dictation software. Although every effort was made to ensure the accuracy of this automated tracing lathe set up operator, some errors in tracing lathe set up operator may have occurred. Irvin Shepard MD 05/27/2025 12:49 PM documented in this encounterBon [facility] NotePrevious cholecystectomy, splenectomy, and prior Whipple procedure which [...] early infiltrates posteriorly which is more prominent. [id number] Telephone encounter Note* Telephone Encounter - Madhuri Barlow - 04/28/2025 3:07 PM EDT April 28, 2025 3:07 PM Last encounter Visit on 03/31/2025 (with Kathy Bravo) [place] called regarding TRELL notes to be sent to [phone] for Insulin Pump supplies. Transmission successful. Madhuri Barlow Diplomatic Courier Medical Specialty [place] [facility] X20 [facility]07-08-2025 Miscellaneous Notes* Telephone Encounter - Madhuri Barlow - 04/28/2025 3:07 PM EDT April 28, 2025 3:07 PM Last encounter Visit on 03/31/2025 (with Kathy Bravo) [place] called regarding TRELL notes to be sent to [phone] for Insulin Pump supplies. Transmission successful. Madhuri Barlow Diplomatic Courier Medical [facility] [place] [facility] X20 [facility] in [facility]Mer[facility] Telephone encounter Note * Telephone Encounter - iLgia Kerns RN - 04/03/2025 1:27 PM EDT Records sent (egd, pathology and operative report) [facility]06-13-2025 Miscellaneous Notes* Telephone Encounter - Ligia Kerns RN - 04/03/2025 1:27 PM EDT Records sent (egd, pathology and operative report) * Telephone Encounter - Gilberto Pedro - 04/03/2025 12:42 PM EDT Pt is calling to inform that his employer needs additional info for his EGD/documentation from before procedure and the Biopsy / Operative Note from after the procedure, pt state the information can be uploaded to his [employer] and he can get it to his employer. Contact info: [phone] [facility] in [facility]Mer[facility] Telephone encounter Note * Telephone Encounter - Gilberto Pedro - 04/03/2025 12:42 PM EDT Pt is calling to inform that his employer needs additional info for his EGD/documentation from before procedure and the Biopsy / Operative Note from after the procedure, pt state the information can be uploaded to his [employer] and he can get it to his employer. Contact info: [phone] [facility] History of Present illness Narrative* Kathy Bravo MD - 03/31/2025 5:03 PM EDT Images from the original note were not included. REASON FOR CONSULTATION: Pancreatic diabetes December 24, 2024 Virtual visit I have communicated my name and active licensure. The patient's identity and physical location wereverified at the time of this visit. Either the patient or their legal strategic partnership representative has been informed of the risks [...] 4 tablets by mouth as needed. Insulin [place], Disposable, (BD ULTRAFINE III MINI PEN) 31 gauge x 3/16 Use with insulin 5 times daily iukwck-kpbnnwuy-xxquwzt (CREON 36) 36,000-114,000- 180,000 unit delayed release [...] q6hr, PRN,# 1 EA, 0 Refill(s), Pharmacy: [address] amitriptyline (ELAVIL) 50 mg tablet Take 1 tablet by mouth daily at bedtime. amLODIPine (NORVASC) 2.5 mg tablet Take 1 tablet by mouth once daily. atorvastatin (LIPITOR) 40 mg tablet Take 1 tablet by mouth once daily. azelastine 0.1% nasal spray Use 1 [place] in each nostril two times a day. [...] good support ( has the medtronic) - [facility] for supplies - iLet and humalog - sugars a bit worse with the steroids - will plan for changing supplies every 2 days - will bolus small breakfast for coffee - bolus a bit larger when he eats the bigger breakfast 3 month FU Kathy Bravo MD March 31, 2025 [facility] in [facility]Mer[facility] Telephone encounter Note * Telephone Encounter - Stephanie Hopson - 03/31/2025 9:54 AM EDT March 31, 2025 9:54 AM Last encounter Visit on 12/24/2024 (with Kathy Bravo) Thomas Malinda called regarding needing an appointment in order to have his supplies shipped from [employer]. Per patient his insurance, he needs to be seen every 3 months in order to continue getting supplies so his 12/24/24 notes are no longer valid. Patient was originally transferred from the help desk rep to be helped with being scheduled soon. Please advise. Stephanie Hopson Diplomatic Courier II Diabetes & Endocrinology X-20 [facility]06-10-2025 Miscellaneous Notes* Telephone Encounter - Stephanie Hopson - 03/31/2025 9:54 AM EDT March 31, 2025 9:54 AM Last encounter Visit on 12/24/2024 (with Kathy Bravo) Erniemaura Malinda called regarding needing an appointment in order to have his supplies shipped from [employer]. Per patient his insurance, he needs to be seen every 3 months in order to continue getting supplies so his 12/24/24 notes are no longer valid. Patient was originally transferred from the help desk rep to be helped with being scheduled soon. Please advise. Stephanie Hopson Diplomatic Courier II Diabetes & Endocrinology X-20 documented in this encounterMer[facility]05-28-2025 Telephone encounter Note * Telephone Encounter - Katherin Justice - 03/18/2025 9:25 AM EDT Received request for TRELL Notes from [employer] via fax Sent notes from 12-24-[address] Bravo [phone] Transmitted successfully Katherin Justice Diplomatic Courier II Endocrinology & Metabolism [place] [facility] X-20, F-20 [facility]05-28-2025 Miscellaneous Notes* Telephone Encounter - Katherin Justice - 03/18/2025 9:25 AM EDT Received request for TRELL Notes from [employer] via fax Sent notes from 12-24-[address] Bravo [phone] Transmitted successfully Katherin Justice Diplomatic Courier II Endocrinology & Metabolism [place] [facility] X-20, F-20 documented in this encounterMercy [facility]05-[facility]-2025 Miscellaneous Notes* Telephone Encounter - Madhuri Barlow - 03/04/2025 4:07 PM EDT March 04, 2025 4:07 PM Last encounter Visit on 12/24/2024 (with Kathy Bravo) Thomas Petty called regarding asking to send his TRELL [facility] 12[facility]24/2024 [phone]. Transmitted successfully. Madhuri Barlow [facility] documented in this encounterMer[facility]05-14-2025 Telephone encounter Note * Telephone Encounter - Madhuri Barlow - 03/04/2025 4:07 PM EDT March 04, 2025 4:07 PM Last encounter Visit on 12/24/2024 (with Kathy Bravo) Thomas Petty called regarding asking to send his TRELL notes of 12/24/2024 [facility] [phone]. Transmitted successfully. Madhuri Barlow [facility]05-06-2025 Hospital Discharge instructions* Discharge Instructions* Farida Gibbons DO - 02/24/2025 12:33 PM EDT Continue to apply ice to areas of discomfort, okay to take Tylenol for pain control elevate when able, follow-up with your primary care provider. documented in this encounterBon [facility] Telephone encounter Note* Telephone Encounter - Lolita Ryan MA - 02/17/2025 3:45 PM EDT Images from the original note [...] on file in the last 12 months [facility]04-29-2025 Miscellaneous Notes* Telephone Encounter - Lolita Ryan MA - 02/17/2025 3:45 PM EDT Images from the original note [...] the last 12 months documented in this encounterMercy [facility]04-[facility]-2025 Nurse Note* Roxy Gallo RN - 01/23/2025 3:59 PM EDT AMBULATORY PATIENT EDUCATION NOTE TOPIC: GI PROCEDURES: [...] / FAMILY RESPONSE: Verbalizes understanding of: WORSENING CONDITION- Signs and symptoms of aworsening condition that warrant a call to the physician FOLLOW-UP PLAN: Patient instructed to call with any further issues Recommend - Recommend continued instruction and follow up as directed Contact information given. SUPPLEMENTAL MATERIAL: Procedure Discharge Instructions REFERRAL (RECOMMENDATION): None [facility]04-04-2025 Nurse Note* Roxy Gallo RN - 01/23/2025 3:59 PM EDT AMBULATORY PATIENT EDUCATION NOTE TOPIC: GI PROCEDURES: [...] / FAMILY RESPONSE: Verbalizes understanding of: WORSENING CONDITION- Signs and symptoms of aworsening condition that warrant a call to the physician FOLLOW-UP PLAN: Patient instructed to call with any further issues Recommend - Recommend continued instruction and follow up as directed Contact information given. SUPPLEMENTAL MATERIAL: Procedure Discharge Instructions REFERRAL (RECOMMENDATION): None * Carmel Kim RN - 01/23/2025 3:03 PM EDT PRE OP LEARNING ASSESSMENT PROCEDURE/SURGERY: GI PROCEDURES: EGD READINESS TO LEARN COGNITIVE ABILITY: Alert and oriented MOTIVATION TO LEARN: Eager FAMILY SUPPORT: High - Very involved in pt care PATIENT LEARNS BEST BY: Individual Instruction FACTORS AFFECTING LEARNING: None PHYSICAL LIMITATIONS AFFECTING LEARNING: None Electronically Signed By: Carmel Kim RN In Department: GASTROENTEROLOGY documented in this encounterMercy [facility]04-04-2025 NoteQ3 Patient Name: Thomas Petty Procedure Date: 01/23/2025 3:08 PM Date of : 1970 Admit Type: Outpatient Age: 54 Gender: Male Note Status: Finalized Attending MD: Dariusz Pratt MD, [id number] Procedure: Upper GI endoscopy Indications: Epigastric abdominal [...] 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 Biopsied. - Bile gastritis, characterized by erythema. Biopsied. Estimated Blood Loss: Estimated blood loss: none. Recommendation: - Await pathology results. - Patient has a contact number available for emergencies. The signs and symptoms of potential delayed complications were discussed with the patient. Return to normal activities tomorrow. Written discharge instructions were provided to the patient. Procedure Code(s): --- Professional --- 15885 Diagnosis Code(s): --- Professional --- K22.70 K29.60 Z90.411 Z90.49 R10.13 CPT copyright 2020 [employer]. All rights reserved. Attending Participation: I personally performed the entire procedure. Scope In: 3:27:59 PM Scope Out: 3:39:36 PM MD Dariusz Josue MD 01/23/2025 3:43:43 PM This report has been signed electronically by Dariusz Pratt MD Number of Addenda: 0 Note Initiated On: 01/23/2025 3:08 [id number] Nurse Note* Carmel Kim RN - 01/23/2025 3:03 PM EDT PRE OP LEARNING ASSESSMENT PROCEDURE/SURGERY: GI PROCEDURES: EGD READINESS TO LEARN COGNITIVE ABILITY: Alert and oriented MOTIVATION TO LEARN: Eager FAMILY SUPPORT: High - Very involved in pt care PATIENT LEARNS BEST BY: Individual Instruction FACTORS AFFECTING LEARNING: None PHYSICAL LIMITATIONS AFFECTING LEARNING: None Electronically Signed By: Carmel Kim RN In Department: GASTROENTEROLOGY [facility]03-28-2025 Nurse Note* Bacilio Nowak RN - 01/16/2025 3:59 PM EDT GI Pre-Procedure Spoke with patient: Yes Confirmed date scheduled and patient report time: Yes Procedure Planned:Esophagogastroduodenoscopy(EGD) with or without biopies based on clinical findings, removal of polyps or lesions Is the patient on blood thinners?no Procedure Instructions given to patient: Yes, and they verbalized their understanding of instructions given Patient instructed to take prescribed preparation prior to procedure:Yes, and they verbalized theirunderstanding of instructions given Patient instructed to have family/friend present for procedure transport home:Patient/patient strategic partnership representative was told that if they do not have a responsible adult accompany them to their procedure; and remain in the endoscopy area until they are discharged; that their procedure cannot be done with s edation or anesthesia and may be cancelled. and They verbalized their understanding and agree to have a responsible adult accompany the patient to their procedure and remain in the endoscopy area. Any barriers to Patient learning: Patient/Patient Paver Layer responded appropriately on phone. Type of instruction given: Verbal by telephone contact. Bacilio Nowak RN [facility]03-28-2025 Nurse Note* Bacilio Nowak RN - 01/16/2025 3:59 PM EDT GI Pre-Procedure Spoke with patient: Yes Confirmed date scheduled and patient report time: Yes Procedure Planned:Esophagogastroduodenoscopy(EGD) with or without biopies based on clinical findings, removal of polyps or lesions Is the patient on blood thinners?no Procedure Instructions given to patient: Yes, and they verbalized their understanding of instructions given Patient instructed to take prescribed preparation prior to procedure:Yes, and they verbalized theirunderstanding of instructions given Patient instructed to have family/friend present for procedure transport home:Patient/patient strategic partnership representative was told that if they do not have a responsible adult accompany them to their procedure; and remain in the endoscopy area until they are discharged; that their procedure cannot be done with s edation or anesthesia and may be cancelled. and They verbalized their understanding and agree to have a responsible adult accompany the patient to their procedure and remain in the endoscopy area. Any barriers to Patient learning: Patient/Patient Paver Layer responded appropriately on phone. Type of instruction given: Verbal by telephone contact. Bacilio Nowak RN documented in this encounterMer[facility] Hospital03-17-2025 Nurse Note* Trini Wayne RN - 01/05/2025 3:34 PM EDT AMBULATORY PATIENT EDUCATION NOTE TOPIC: GI PROCEDURES: [...] / FAMILY RESPONSE: Verbalizes understanding of: WORSENING CONDITION- Signs and symptoms of aworsening condition that warrant a call to the physician FOLLOW-UP PLAN: Complete - No need for follow-up SUPPLEMENTAL MATERIAL: Procedure Discharge Instructions REFERRAL (RECOMMENDATION): None [facility]03-17-2025 Nurse Note* Trini Wayne RN - 01/05/2025 3:34 PM EDT AMBULATORY PATIENT EDUCATION NOTE TOPIC: GI PROCEDURES: [...] / FAMILY RESPONSE: Verbalizes understanding of: WORSENING CONDITION- Signs and symptoms of aworsening condition that warrant a call to the physician FOLLOW-UP PLAN: Complete - No need for follow-up SUPPLEMENTAL MATERIAL: Procedure Discharge Instructions REFERRAL (RECOMMENDATION): None * Estelle Marvin RN - 01/05/2025 2:06 PM EDT PRE OP LEARNING ASSESSMENT PROCEDURE/SURGERY: GI PROCEDURES: EGD READINESS TO LEARN COGNITIVE ABILITY: Alert and oriented MOTIVATION TO LEARN: Interested FAMILY SUPPORT: None - Unavailable/disinterested PATIENT LEARNS BEST BY: Individual Instruction FACTORS AFFECTING LEARNING: None PHYSICAL LIMITATIONS AFFECTING LEARNING: None Electronically Signed By: Estelle Marvin RN In Department: GASTROENTEROLOGY documented in this encounterMercy [facility] Hospital03-17-2025 History and physical note * Ajith Radford MD - 01/05/2025 2:30 PM EDT PROCEDURAL SEDATION HISTORY AND PHYSICAL EXAM SERVICE [...] (BAQSIMI) 3 mg/actuation nasal spray Use 1 [place] in the nose as needed. May repeat after 15 minutes using a new device if there is no response. glucose 4 gram chewable tablet Take 4 tablets by mouth as needed. Insulin [place], Disposable, (BD ULTRAFINE III MINI PEN) 31 gauge x 3/16 Use with insulin 5 times daily hwuryy-xohsyfim-tlgkupt (CREON 36) 36,000-114,000- 180,000 unit delayed release [...] q6hr, PRN,# 1 EA, 0 Refill(s), Pharmacy: [address] amitriptyline (ELAVIL) 50 mg tablet Take 1 tablet by mouth daily at bedtime. azelastine 0.1% nasal spray Use 1 [place] in each nostril two times a day. [...] 05, 2025 TIME: 2:49 PM Created 2023 [facility] Work Phone: [phone]) 838-364403-17-2025 History and physical note* Ajith Radford MD - 01/05/2025 2:30 PM EDT PROCEDURAL SEDATION HISTORY AND PHYSICAL EXAM SERVICE [...] (BAQSIMI) 3 mg/actuation nasal spray Use 1 [place] in the nose as needed. May repeat after 15 minutes using a new device if there is no response. glucose 4 gram chewable tablet Take 4 tablets by mouth as needed. Insulin [place], Disposable, (BD ULTRAFINE III MINI PEN) 31 gauge x 3/16 Use with insulin 5 times daily klggri-twldyjgb-ijizfnu (CREON 36) 36,000-114,000- 180,000 unit delayed release [...] q6hr, PRN,# 1 EA, 0 Refill(s), Pharmacy: [address] amitriptyline (ELAVIL) 50 mg tablet Take 1 tablet by mouth daily at bedtime. azelastine 0.1% nasal spray Use 1 [place] in each nostril two times a day. [...] 05, 2025 TIME: 2:49 PM Created 2023 documented in this encounterMercy [facility] Hospital03-17-2025 Nurse Note* Estelle Marvin RN - 01/05/2025 2:06 PM EDT PRE OP LEARNING ASSESSMENT PROCEDURE/SURGERY: GI PROCEDURES: EGD READINESS TO LEARN COGNITIVE ABILITY: Alert and oriented MOTIVATION TO LEARN: Interested FAMILY SUPPORT: None - Unavailable/disinterested PATIENT LEARNS BEST BY: Individual Instruction FACTORS AFFECTING LEARNING: None PHYSICAL LIMITATIONS AFFECTING LEARNING: None Electronically Signed By: Estelle Marvin RN In Department: GASTROENTEROLOGY [facility]03-10-2025 Telephone encounter Note* Telephone Encounter - Katherin Justice - 12/29/2024 3:13 PM EDT [facility] 12-24-[address] Bravo Received DWO for Infusion Supplies from [employer] Sent to provider for review, signature, completion Katherin Justice [employer] II Endocrinology & Metabolism [place] [facility] X-20, F-20 [facility]03-10-2025 Miscellaneous Notes* Telephone Encounter - Katherin Justice - 12/29/2024 3:13 PM EDT [facility] 12-24-[address] Bravo Received DWO for Infusion Supplies from [employer] Sent to provider for review, signature, completion Katherin Justice [employer] II Endocrinology & Metabolism [facility] X-20, F-20 documented in this encounterMercy Health [facility] Hospital03-10-2025 Nurse Note* Claudine Mendez RN - 12/29/2024 2:51 PM EDT GI Pre-Procedure Spoke with patient: Yes Confirmed date scheduled and patient report time: Yes Procedure Planned:Esophagogastroduodenoscopy(EGD) with or without biopies based on clinical findings, removal of polyps or lesions Is the patient on blood thinners?no Procedure Instructions given to patient: Yes, and they verbalized their understanding of instructions given Patient instructed to take prescribed preparation prior to procedure:Yes, and they verbalized theirunderstanding of instructions given Patient instructed to have family/friend present for procedure transport home:Patient/patient strategic partnership representative was told that if they do not have a responsible adult accompany them to their procedure; and remain in the endoscopy area until they are discharged; that their procedure cannot be done with s edation or anesthesia and may be cancelled. and They verbalized their understanding and agree to have a responsible adult accompany the patient to their procedure and remain in the endoscopy area. Any barriers to Patient learning: Patient/Patient Paver Layer responded appropriately on phone. Type of instruction given: Verbal by telephone contact. Claudine Mendez RN [facility]03-10-2025 Nurse Note* Claudine Mendez RN - 12/29/2024 2:51 PM EDT GI Pre-Procedure Spoke with patient: Yes Confirmed date scheduled and patient report time: Yes Procedure Planned:Esophagogastroduodenoscopy(EGD) with or without biopies based on clinical findings, removal of polyps or lesions Is the patient on blood thinners?no Procedure Instructions given to patient: Yes, and they verbalized their understanding of instructions given Patient instructed to take prescribed preparation prior to procedure:Yes, and they verbalized theirunderstanding of instructions given Patient instructed to have family/friend present for procedure transport home:Patient/patient strategic partnership representative was told that if they do not have a responsible adult accompany them to their procedure; and remain in the endoscopy area until they are discharged; that their procedure cannot be done with s edation or anesthesia and may be cancelled. and They verbalized their understanding and agree to have a responsible adult accompany the patient to their procedure and remain in the endoscopy area. Any barriers to Patient learning: Patient/Patient Paver Layer responded appropriately on phone. Type of instruction given: Verbal by telephone contact. Claudine Mendez RN documented in this encounterMercy Health West Hospital03-05-2025 [facility]03-05-[facility] History of Present illness Narrative* Kathy Bravo MD - 12/24/2024 9:53 AM EST Images from the original note were not included. REASON FOR CONSULTATION: Pancreatic diabetes December 24, 2024 Virtual visit I have communicated my name and active licensure. The patient's identity and physical location wereverified at the time of this visit. Either the patient or their legal strategic partnership representative has been informed of the risks [...] (BAQSIMI) 3 mg/actuation nasal spray Use 1 [place] in the nose as needed. May repeat after 15 minutes using a new device if there is no response. glucose 4 gram chewable tablet Take 4 tablets by mouth as needed. Insulin [place], Disposable, (BD ULTRAFINE III MINI PEN) 31 gauge x 3/16 Use with insulin 5 times daily ncwkzo-qnschoce-ggviffi (CREON 36) 36,000-114,000- 180,000 unit delayed release [...] q6hr, PRN,# 1 EA, 0 Refill(s), Pharmacy: [address] amitriptyline (ELAVIL) 50 mg tablet Take 1 tablet by mouth daily at bedtime. amLODIPine (NORVASC) 2.5 mg tablet Take 1 tablet by mouth once daily. atorvastatin (LIPITOR) 40 mg tablet Take 1 tablet by mouth once daily. azelastine 0.1% nasal spray Use 1 [place] in each nostril two times a day. [...] MD December 24, 2024 documented in this encounterMercy Health [facility] Hospital03-04-2025 History of Present illness Narrative* Jesus Jacobson MD - 12/23/2024 9:15 AM EST virtual visit of 30 min duration. total [...] issue. Kayleen Jacobson MD documented in this encounterMercy Health West Hospital03-04-2025 NoteL[facility]02-14-[facility]25 Hospital Discharge instructions* Discharge Instructions* Dmitry Tierney MD - 12/05/2024 6:45 PM [...] blood, blood in your stool, loss of consciousness,numbness, weakness or tingling in the arms or legs or change in color of the extremities, changes in mental status, persistent headache, blurry vision, loss of bladder / bowel control, unable to follow up with your physician, or other any other care or concern. * Attachments The following attachments cannot be sent through Care Everywhere. * Abdominal Pain ([place]) * Chest Pain: Musculoskeletal ([place]) documented in this encounterBon [facility] Telephone encounter Note* Telephone Encounter - Ligia Kerns RN - 12/04/2024 1:24 PM EST Patient called to inquire if there is metal clips on right side from surgery. He fell and had imaging done locally and would like for Dr. Jacobson to review. Phone number [phone] Will work to request imaging for review [facility]02-13-2025 Miscellaneous Notes* Telephone Encounter - Ligia Kerns RN - 12/04/2024 1:24 PM EST Patient called to inquire if there is metal clips on right side from surgery. He fell and had imaging done locally and would like for Dr. Jacobson to review. Phone number [phone] Will work to request imaging for review * Telephone Encounter - Vickie Galindo - 12/04/2024 9:43 AM EST Pt is calling because he is having rib pain. Pt got Xray done and it seems to be a medal clip or something in him. He wants to speak with someone about it. documented in this encounterMercy Health [facility] Hospital02-13-2025 Telephone encounter Note * Telephone Encounter - Vickie Galindo - 12/04/2024 9:43 AM EST Pt is calling because he is having rib pain. Pt got Xray done and it seems to be a medal clip or something in him. He wants to speak with someone about it. [facility]02-10-2025 Telephone encounter Note* Telephone Encounter - Ligia Kerns RN - 12/01/2024 3:11 PM EST Patient emailed paperwork for review by provider [facility]02-10-2025 Miscellaneous Notes* Telephone Encounter - Ligia Kerns RN - 12/01/2024 3:11 PM EST Patient emailed paperwork for review by provider * Telephone Encounter - Vickie Galindo - 12/01/2024 2:22 PM EST Pt needs information about his surgery asked to speak with nurse documented in this encounterMercy Health [facility] Hospital02-10-2025 Telephone encounter Note * Telephone Encounter - Vickie Galindo - 12/01/2024 2:22 PM EST Pt needs information about his surgery asked to speak with nurse [facility]02-09-2025 Hospital Discharge instructions* Discharge Instructions* Sid Sinclair II, PA-C - 11/30/2024 5:19 [...] to the hospital. If you're vomiting and cannottake the medicines that were prescribed you should return to the hospital. If you're having persistent fevers you should return to the hospital. If you have any question of whether or not your symptoms are serious enough or for any other urgent concerns- always return to the hospital for repeat evaluation. * Attachments The following attachments cannot be sent through Care Everywhere. * Hand Sprain ([place]) * Contusion ([place]) documented in this encounterBon [facility]01-[facility] History of Present illness Narrative* Kathy Bravo MD - 10/31/2024 4:20 PM EST Images from the original note were not included. REASON FOR CONSULTATION: Pancreatic diabetes October 31, 2024 I have communicated my name and active licensure. The patient's identity and physical location wereverified at the time of this visit. Either the patient or their legal strategic partnership representative has been informed of the risks [...] (BAQSIMI) 3 mg/actuation nasal spray Use 1 [place] in the nose as needed. May repeat after 15 minutes using a new device if there is no response. glucose 4 gram chewable tablet Take 4 tablets by mouth as needed. Insulin [place], Disposable, (BD ULTRAFINE III MINI PEN) 31 gauge x 3/16 Use with insulin 5 times daily jadtlo-syqgcsvs-bhoyvpj (CREON 36) 36,000-114,000- 180,000 unit delayed release [...] q6hr, PRN,# 1 EA, 0 Refill(s), Pharmacy: [facility] amitriptyline (ELAVIL) 50 mg tablet Take 1 tablet by mouth daily at bedtime. amLODIPine (NORVASC) 2.5 mg tablet Take 1 tablet by mouth once daily. atorvastatin (LIPITOR) 40 mg tablet Take 1 tablet by mouth once daily. azelastine 0.1% nasal spray Use 1 [place] in each nostril two times a day. [...] MD October 31, 2024 documented in this encounterMercy [facility] Hospital01-10-2025 NoteL[facility]01-03-2025 Telephone encounter Note* Telephone Encounter - Dario Hines RN - 10/24/2024 12:41 PM EST Called Patient and discussed new pump with him. Patient states he is happy with it and is utilizingmeal announcing correctly. No changes made at this time. [facility] Work Phone: 1(248) 292-690601-03-2025 Miscellaneous Notes* Telephone Encounter - Dario Hines RN - 10/24/2024 12:41 PM EST Called Patient and discussed new pump with him. Patient states he is happy with it and is utilizingmeal announcing correctly. No changes made at this time. documented in this encounterMercy Health West Hospital12-17-2024 NoteL[facility]12-17-2024 History of Present illness Narrative* Dario Hines RN - 10/07/2024 12:12 PM EST DIABETES SELF-MANAGEMENT EDUCATION AND SUPPORT FOLLOW-UP VISIT Type of Diabetes: Other Location: [facility] [place] Type of visit: In person individual Types [...] a carb ratio:Patient carb aware and understands requirementsof insulin pump Patient Verbalizes rules regarding when to change infusion set due to hyperglycemia: Yes Patient verbalizes importance of carrying a pump emergency kit:Yes Patient verbalizes back-up plan for pump failure:Yes Handouts provided: None This is a non-billable encounter through [employer] but will be billed to the following pump company: [employer]. 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 Nothing gets in the way ofDM management Health History: Most recent eye exam: [...] (BAQSIMI) 3 mg/actuation nasal spray Use 1 [place] in the nose as needed. May repeat after 15 minutes using a new device if there is no response. glucose 4 gram chewable tablet Take 4 tablets by mouth as needed. Insulin [place], Disposable, (BD ULTRAFINE III MINI PEN) 31 gauge x 3/16 Use with insulin 5 times daily gzgplb-rkqubatc-qncfxic (CREON 36) 36,000-114,000- 180,000 unit delayed release [...] q6hr, PRN,# 1 EA, 0 Refill(s), [facility] [address] amitriptyline (ELAVIL) 50 mg tablet Take 1 tablet by mouth daily at bedtime. amLODIPine (NORVASC) 2.5 mg tablet Take 1 tablet by mouth once daily. atorvastatin (LIPITOR) 40 mg tablet Take 1 tablet by mouth once daily. azelastine 0.1% nasal spray Use 1 [place] in each nostril two times a day. [...] asked/not answered Glucose Monitoring: Device: CGM (type: [employer] G7) Checking frequency: continuous (using CGM) Checking [...] TIME: 12:34 PM PAGER: documented in this encounterMercy Health West Hospital12-12-2024 Telephone encounter Note * Telephone Encounter - Madhuri Barlow - 10/02/2024 12:07 PM EST [facility] Form completed and submitted to provider for review/signature. [facility]12-12-2024 Miscellaneous Notes* Telephone Encounter - Madhuri Barlow - 10/02/2024 12:07 PM EST DWO form received from [employer] for Insulin pump. Form completed and submitted to provider for review/signature. documented in this encounterMercy Health West Hospital12-10-2024 NoteL[facility]12-10-2024 History of Present illness Narrative* Kelley Fowler MD - 09/30/2024 11:30 AM EST Images from the original note were not included. 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 Overall,he is doing ok. His BG have been [...] as other medications prescribed for you. Read thedirections carefully, and ask your doctor or other [...] nasal spray Generic drug: glucagon Use 1 [place] in the nose as needed. May repeat [...] 50 units in insulin pump daily Insulin [place] (Disposable) 31 gauge x 3/16 Commonly known as: BD Ultrafine III Mini Pen Use with insulin 5 times daily Lancets Use to check sugars once daily yktxie-lqlydsis-nbnzxkd 36,000-114,000- 180,000 unit delayed release capsule Commonly [...] as other medications prescribed for you. Read thedirections carefully, and ask your doctor or other care provider to review them with you. Where to Get Your Medications These medications were sent to [email or web address] [id number] [place] [address] - [address] - [phone] SR18 ([facility]) [id number] [address] [facility] [address] promethazine 25 mg suppository PATHOLOGY FINAL DIAGNOSIS [...] Fowler MD September 30, 2024 11:30 AM * Jesus Jacobson MD - 09/30/2024 11:20 AM EST [facility] STAFF PHYSICIAN NOTE OF PERSONAL INVOLVEMENT [...] of Service: 11:28 AM documented in this encounterMercy Health West Hospital12-10-2024 NoteL[facility]2024 Telephone encounter Note* Telephone Encounter - Eliana Duque RN - 09/26/2024 12:40 PM EST Benji, This patient has received the iLet [...] would prefer this training gets reassigned. Thanks! [facility] Work Phone: [phone] Miscellaneous Notes* Telephone Encounter - Eliana Duque RN - 09/26/2024 12:40 PM EST Benji, This patient has received the iLet [...] training gets reassigned. Thanks! documented in this encounterMercy Health West Hospital12-04-2024 Telephone encounter Note * Telephone Encounter - Kathy Bravo MD - 09/24/2024 5:50 PM EST Spoke with patient. He is having extreme lows and bottoming out with vomiting, diaphoresis. No sensor. Would recommend that he drop to 17 units and also reduce humalog to 4 units. Also let him know moving forwards to inform me of any issues. Already messaged and texted our rep at [employer]. They will look into situation. I emailed back the form that was requested. He had approval for pump and sensors back on 09/12. Appreciated call and all questions answered. Kahty Bravo MD September 24, 2024 [facility]12-04-2024 Miscellaneous Notes* Telephone Encounter - Kathy Bravo MD - 09/24/2024 5:50 PM EST Spoke with patient. He is having extreme lows and bottoming out with vomiting, diaphoresis. No sensor. Would recommend that he drop to 17 units and also reduce humalog to 4 units. Also let him know moving forwards to inform me of any issues. Already messaged and texted our rep at [facility]. They will look into situation. I emailed back the form that was requested. He had approval for pump and sensors back on 09/12. Appreciated call and all questions answered. Kathy Bravo MD September 24, 2024 documented in [facility] encounterMer[facility]24 Telephone encounter Note * Telephone Encounter - Jennifer Jenkins MD - 09/24/2024 5:36 PM EST Received on-call page from nicking machine operator need authorization form for Supplier for urgent supplies rodney . Called patient, and he connected me in a three-way call with [employer] (supplier) who explained that they needed a [...] call so he can continue conversation with [facility] strategic partnership representative independently. Jennifer Jenkins MD Clinical Fellow, Endocrinology [facility] Work Phone: [phone]) 399-328212-04-2024 Miscellaneous Notes* Telephone Encounter - Jennifer Jenkins MD - 09/24/2024 5:36 PM EST Received on-call page from nicking machine operator need authorization form for Supplier for urgent supplies rodney . Called patient, and he connected me in a three-way call with [employer] (supplier) who explained that they needed a [...] call so he can continue conversation with [facility] strategic partnership representative independently. Jennifer Jenkins MD Clinical Fellow, Endocrinology * Telephone Encounter - Stephanie Hopson - 09/24/2024 11:39 AM EST [facility] infusion catheter and supplies for EXT insulin infusionpump. Form completed and submitted to provider for review/signature. Stephanie Hopson Diplomatic Courier II Diabetes & Endocrinology X-20 documented in this encounterMer[facility] Hospital12-04-2024 Telephone encounter Note * Telephone Encounter - Stephanie Hopson - 09/24/2024 11:39 AM EST DWO form received from [facility] for insulin infusion catheter and supplies for EXT insulin infusionpump. Form completed and submitted to provider for review/signature. Stephanie Hopson Diplomatic Courier II Diabetes & Endocrinology X-20 [facility]11-29-2024 Telephone encounter Note* Telephone Encounter - Kathy Bravo MD - 09/19/2024 4:21 PM EST This will be addressed by [email or web address] and also the medical supplier. I have not had to ever call in authorizations on pumps and do not feel comfortable doing so. Would be better to go through standard protocol here. Kathy Bravo MD September 19, 2024 [facility]11-29-[facility]24 Miscellaneous Notes* Telephone Encounter - Kathy Bravo MD - 09/19/2024 4:21 PM EST This will be addressed by [employer] and also the medical supplier. I have not had to ever call in authorizations on pumps and do not feel comfortable doing so. Would be better to go through standard protocol here. Kathy Bravo MD September 19, 2024 * Telephone Encounter - Whitney Blackwell - 09/09/2024 3:24 PM EST Received a call from [facility] stating patient would like an insulin pump. However, an insulin pump would require a prior authorization. Agent advised the fastest way to expedite the authorization would be to do this would be via phone. Provider line [phone] Provider/PA team would have to provide: -- recent labs (would not specify which ones) -- what brand/type of pump patient would be ordering JORGE WOODS Diplomatic Courier II Endocrinology & Metabolism [place] [facility] X-20 documented in this encounterMercy Health West Hospital11-29-2024 Telephone encounter Note * Telephone Encounter - Katherin Justice - 09/19/2024 12:32 PM EST Requester: Patient Patients last Endocrinology visit occurred [...] PSS NOTE: Patient needs scheduled appointment No [facility]11-29-2024 Miscellaneous Notes* Telephone Encounter - Katherin Justice - 09/19/2024 12:32 PM EST Requester: Patient Patients last Endocrinology visit occurred [...] needs scheduled appointment No documented in this encounterMercy Health [facility] Hospital11-25-2024 Telephone encounter Note * Telephone Encounter - Neema Lewis - 09/15/2024 2:37 PM EST Faxed form to [employer] for sensors and receivers. Successfully transmitted to [phone]. Neema Saucedo Diplomatic Courier II [facility]-0 [facility]11-25-2024 Miscellaneous Notes* Telephone Encounter - Neema Lewis - 09/15/2024 2:37 PM EST Faxed form to [employer] for sensors and receivers. Successfully transmitted to [phone]. Neema Saucedo Diplomatic Courier II [facility]-F20 documented in this encounterMercy Health West Hospital11-19-2024 Telephone encounter Note * Telephone Encounter - Whitney Blackwell - 09/09/2024 3:24 PM EST Received a call from [facility] stating patient would like an insulin pump. However, an insulin pump would require a prior authorization. Agent advised the fastest way to expedite the authorization would be to do this would be via phone. Provider line [phone] Provider/PA team would have to provide: -- recent labs (would not specify which ones) -- what brand/type of pump patient would be ordering JORGE WOODS Diplomatic Courier II Endocrinology & Metabolism [place] [facility] X-20 [facility]11-19-2024 [facility]11-[facility] History of Present illness Narrative* Kathy Bravo MD - 09/09/2024 2:23 PM EST Images from the original note were not included. REASON FOR CONSULTATION: Pancreatic diabetes September 09, 2024 I have communicated my name and active licensure. The patient's identity and physical location wereverified at the time of this visit. Either the patient or their legal strategic partnership representative has been informed of the risks and benefits of -- and alternatives to -- treatment through a remote evaluation andconsents to proceed with the evaluation remotely. HISTORY Mr Thomas Petty is a 53 year old male who comes in here for evaluation of diabetes, pendingtotal pancreatectomy without islet The patient is referred [...] Relion meter - just bought thi at [facility] Usually very well controlled Sometimes a [...] (BAQSIMI) 3 mg/actuation nasal spray Use 1 [place] in the nose as needed. May repeat after 15 minutes using a new device if there is no response. glucose 4 gram chewable tablet Take 4 tablets by mouth as needed. Insulin [place], Disposable, (BD ULTRAFINE III MINI PEN) 31 gauge x 3/16 Use with insulin 5 times daily tfzfge-iczodhch-ajpeggb (CREON 36) 36,000-114,000- 180,000 unit delayed release [...] q6hr, PRN,# 1 EA, 0 Refill(s), Pharmacy: [address] amitriptyline (ELAVIL) 50 mg tablet Take 1 tablet by mouth daily at bedtime. amLODIPine (NORVASC) 2.5 mg tablet Take 1 tablet by mouth once daily. atorvastatin (LIPITOR) 40 mg tablet Take 1 tablet by mouth once daily. azelastine 0.1% nasal spray Use 1 [place] in each nostril two times a day. [...] [facility] for dexcom G6 - will message [employer] for iLet consideration and see if possible Oct 2024 QIANA Bravo MD September 09, 2024 documented in this encounterMercy [facility] Hospital11-19-2024 Telephone encounter Note * Telephone Encounter - Claudine Estevez RN - 09/09/2024 2:17 PM EST Sorry, just got back to desk. Is there another time you are able to offer him that I can tell him? Lana, MAURICIO Waggoner RN [facility] f [facility]11-19-2024 Miscellaneous Notes* Telephone Encounter -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 pain in his neck ever since activities and injuries during his time in service and in [place]. Patient denies any new neurological symptoms. No bowel or bladder incontinence, no weakness, and nofalling. Review of OARRS does not show any aberrant prescription behavior. Medication is helping the patientstay active. Patient denies any side effects and reports adequate analgesia. No sign of misuse/abuse. Past Medical History: Diagnosis Date Bipolar disorder ([facility]) Chronic pain disorder Chronic pancreatitis ([facility]) Diabetes mellitus type 2, controlled ([facility]) H. pylori infection Low back pain Neck pain PTSD (post-traumatic stress disorder) Past Surgical History: Procedure Laterality Date #1 Bilateral Thoracic Medial branch block T7-8 and T8-9 Bilateral 10/08/2023 Performed by Joana Stratton MD at [facility] #2 Bilateral Thoracic Medial Branch Block T7-8 and T8-9 Bilateral 11/26/2023 Performed by Joana Stratton MD at [facility] APPENDECTOMY Bilateral thoracic Radiofrequency ablation T7-8 and T8-9 Bilateral 01/14/2024 Performed by Joana Stratton MD at [facility] FIXATION KYPHOPLASTY GALLBLADDER SURGERY INJECTION BLOCK SACROILIAC JOINT Bilateral 08/06/2023 Performed by Joana Stratton MD at [facility] PANCREAS SURGERY tumor removed PROSTATE SURGERY [...] (325 mg total) by mouth daily with breakfast.,Disp: , Rfl: lipase/protease/amylase (CREON ORAL), Take by [...] total) by mouth in the morning., Disp: ,Rfl: prazosin (MINIPRESS) 1 mg capsule, Take 1 [...] Resource Strain: Low Risk (04/23/2023) Received from [facility] Overall Financial Resource Strain (CARDIA) Difficulty of Paying Living Expenses: Not hard at all Food Insecurity: No Food Insecurity (02/25/2024) Hunger Screening Food Insecurity - Worry: Never True Food Insecurity - Inability: Never True Transportation Needs: No Transportation Needs (02/07/2024) Received from [facility] PRAPARE - Transportation Lack of Transportation (Medical): No Lack of Transportation (Non-Medical): No Physical Activity: Not on file Stress: Not on file Social Connections: Not on file Interpersonal Safety: Not on file Housing Instability: Low Risk (02/07/2024) Received from [facility] Housing Stability Vital Sign Unable to Pay for Housing in the Last Year: No Number of Places Lived in the Last Year: 2 In the last 12 months, was there a time when you did not have a steady place to sleep or slept in ashelter (including now)?: No Review of Systems: Review [...] Dietz RN 02/25/24 1237 documented in this encounterSumma Health Barberton Campus04-01-2024 History of Present illness Narrative* Joana Stratton MD - 01/21/2024 12:50 PM EDT HPI: Pt presents today for his routine OV for medication assessment and refill and f/u for 11/26/23 Bilateral T 7/8, 05/30 with no relief reported. Preprocedure pain was [...] present in the thoracic spine and gluteal. Thequality of the pain is described as aching. The pain radiates to the right thigh, right knee, rightfoot, left thigh, left knee and left foot. The pain is at a severity of 9/10. The pain is severe. The pain is Worse during the night. The symptoms are aggravated by twisting, stress, sitting, standing, lying down, position and bending. Stiffness is present All day. Associated symptoms include leg pain, numbness and tingling. Pertinent negatives include no bladder incontinence, bowel incontinence,chest pain, fever or weakness. (right hand, and [...] he has not appreciated any relief. He knowsthough due to the nature of his thoracic spine disease with multiple compression fractures it couldtake a little longer to take effect. His have pain more on the right side in the lower thoracic area. He has a fractured his ribs in the past. Patient denies any new neurological symptoms. No bowel or bladder incontinence, no weakness, and nofalling. Review of OARRS does not show any aberrant prescription behavior. Medication is helping the patientstay active. Patient denies any side effects and reports adequate analgesia. No sign of misuse/abuse. Past Medical History: Diagnosis Date Bipolar disorder ([facility]) Chronic pain disorder Chronic pancreatitis ([facility]) Diabetes mellitus type 2, controlled ([facility]) H. pylori infection Low back pain Neck pain PTSD (post-traumatic stress disorder) Past Surgical History: Procedure Laterality Date #1 Bilateral Thoracic Medial branch block T7-8 and T8-9 Bilateral 10/08/2023 Performed by Joana Stratton MD at [facility] #2 Bilateral Thoracic Medial Branch Block T7-8 and T8-9 Bilateral 11/26/2023 Performed by Joana Stratton MD at [facility] APPENDECTOMY Bilateral thoracic Radiofrequency ablation T7-8 and T8-9 Bilateral 01/14/2024 Performed by Jaona Stratton MD at [facility] FIXATION KYPHOPLASTY GALLBLADDER SURGERY INJECTION BLOCK SACROILIAC JOINT Bilateral 08/06/2023 Performed by Joana Stratton MD at [facility] PANCREAS SURGERY tumor removed PROSTATE SURGERY [...] (325 mg total) by mouth daily with breakfast.,Disp: , Rfl: lipase/protease/amylase (CREON ORAL), Take by [...] total) by mouth in the morning., Disp: ,Rfl: prazosin (MINIPRESS) 1 mg capsule, Take 1 [...] Dietz RN 01/21/24 1335 documented in this encounterSumma Health Barberton Campus03-04-2024 History of Present illness Narrative* Joana Stratton MD - 12/24/2023 1:00 PM EST HPI: Pt presents today for his routine [...] present in the thoracic spine and gluteal. Thequality of the pain is described as aching. The pain radiates to the right thigh, right knee, rightfoot, left thigh, left knee and left foot. The pain is at a severity of 8/10. The pain is severe. The pain is Worse during the night. The symptoms are aggravated by twisting, stress, sitting, standing, lying down, position and bending. Stiffness is present All day. Associated symptoms include leg pain, numbness and tingling. Pertinent negatives include no bladder incontinence, bowel incontinence,chest pain, fever or weakness. (right hand, and [...] bowel or bladder incontinence, no weakness, and nofalling. Review of OARRS does not show any aberrant prescription behavior. Medication is helping the patientstay active. Patient denies any side effects and [...] Diagnosis Date Bipolar disorder ([facility]) Chronic pain disorder Chronic pancreatitis ([facility]) H. pylori infection Low back pain Neck pain PTSD (post-traumatic stress disorder) Past Surgical History: Procedure Laterality Date #1 Bilateral Thoracic Medial branch block T7-8 and T8-9 Bilateral 10/08/2023 Performed by Joana Stratton MD at [facility] #2 Bilateral Thoracic Medial Branch Block T7-8 and T8-9 Bilateral 11/26/2023 Performed by Joana Stratton MD at [facility] APPENDECTOMY FIXATION KYPHOPLASTY GALLBLADDER SURGERY INJECTION BLOCK SACROILIAC JOINT Bilateral 08/06/2023 Performed by Joana Stratton MD at [facility] PANCREAS SURGERY tumor removed PROSTATE SURGERY [...] (325 mg total) by mouth daily with breakfast.,Disp: , Rfl: lipase/protease/amylase (CREON ORAL), Take by [...] total) by mouth in the morning., Disp: ,Rfl: prazosin (MINIPRESS) 1 mg capsule, Take 1 [...] Take 1-2 tabs po bid prn. Filldate12/29/23, Disp:120 tablet, Rfl: 0 traMADol ER (ULTRAM-ER) 100 [...] mid back pain with degenerative facet changes onMRI, I believe this is a good candidate for thoracic RFA. Has had significant benefit with previous#1 Thoracic MBB and #2 Thoracic MBB. Will [...] Dietz RN 12/24/23 1322 documented in this encounterSumma Health Barberton Campus02-06-2024 History of Present illness Narrative* Valentina Dietz RN - 11/27/2023 11:41 AM EST Called and stated he received no relief from the #1 MBB that was performed yesterday. He also states he had urinary incontinence one time. Denies loss of bowel control. Denies fever or chills. Informed to go to the ER or follow up with his PCP regarding the incontinence. Voices understanding. documented in this encounterSumma Health Barberton Campus01-31-2024 History of Present illness Narrative* Slime Romano, TREASURY CONSULTANT-FLOOR PERSON - 11/21/2023 2:30 PM EST HPI: Pt presents today for his routine OV for medication assessment and refill. Back Pain This is a chronic problem. The current episode started more than 1 year ago (2001). The problem occurs constantly. The problem is unchanged. The pain is present in the thoracic spine and gluteal. Thequality of the pain is described as aching. The pain radiates to the right thigh, right knee, rightfoot, left thigh, left knee and left foot. The pain is at a severity of 8/10. The pain is severe. The pain is Worse during the night. The symptoms are aggravated by twisting, stress, sitting, standing, lying down, position and bending. Stiffness is present All day. Associated symptoms include leg pain, numbness and tingling. Pertinent negatives include no bladder incontinence, bowel incontinence,chest pain, fever or weakness. (right hand, and [...] He is scheduled for his 2nd TMBB onSunday however reports that he was incontinent for [...] bowel or bladder incontinence, no weakness, and nofalling. Past Medical History: Diagnosis Date Bipolar disorder ([facility]) Chronic pain disorder Chronic pancreatitis ([facility]) H. pylori infection Low back pain Neck pain PTSD (post-traumatic stress disorder) Past Surgical History: Procedure Laterality Date #1 Bilateral Thoracic Medial branch block T7-8 and T8-9 Bilateral 10/08/2023 Performed by Joana Stratton MD at [facility] APPENDECTOMY FIXATION KYPHOPLASTY GALLBLADDER SURGERY INJECTION BLOCK SACROILIAC JOINT Bilateral 08/06/2023 Performed by Joana Stratton MD at [facility] PANCREAS SURGERY tumor removed PROSTATE SURGERY [...] (325 mg total) by mouth daily with breakfast.,Disp: , Rfl: lipase/protease/amylase (CREON ORAL), Take by [...] total) by mouth in the morning., Disp: ,Rfl: prazosin (MINIPRESS) 1 mg capsule, Take 1 [...] T9. Exaggerated kyphosis with the apex at theT6-T7 level. No evidence of acute compression deformity. [...] CHITO Montague 11/21/23 1442 documented in this encounterSumma Health Barber[facility] Campus01-03-2024 History of Present illness Narrative* CHITO Montague - 10/24/2023 2:15 PM EST HPI: Pt presents today for his routine [...] (right hand, and RLE lateral) He has triedanalgesics, ice, heat, chiropractic manipulation, muscle relaxant and [...] after the procedure and felt better. He wishesto proceed with MBB #2. Should he get good results from this will plan on proceeding with TRFA. Patient denies any new neurological symptoms. No bowel or bladder incontinence, no weakness, and nofalling. Past Medical History: Diagnosis Date Bipolar disorder ([facility]) Chronic pain disorder Chronic pancreatitis ([facility]) H. pylori infection Low back pain Neck pain PTSD (post-traumatic stress disorder) Past Surgical History: Procedure Laterality Date #1 Bilateral Thoracic Medial branch block T7-8 and T8-9 Bilateral 10/08/2023 Performed by Joana Stratton MD at [facility] APPENDECTOMY FIXATION KYPHOPLASTY GALLBLADDER SURGERY INJECTION BLOCK SACROILIAC JOINT Bilateral 08/06/2023 Performed by Joana Stratton MD at [facility] PANCREAS SURGERY tumor removed PROSTATE SURGERY [...] (325 mg total) by mouth daily with breakfast.,Disp: , Rfl: lipase/protease/amylase (CREON ORAL), Take by [...] total) by mouth in the morning., Disp: ,Rfl: prazosin (MINIPRESS) 1 mg capsule, Take 1 [...] T9. Exaggerated kyphosis with the apex at theT6-T7 level. No evidence of acute compression deformity. [...] accurate and complete. Valentina Dietz RN 10/24/23 8673 CHITO Montague 10/24/23 1500 documented in this encounterSumma Health [facility]ton Campus09-14-2023 History of Present illness Narrative* Sheri Bettencourt RN - 07/05/2023 9:15 AM EDT Instructed on objectives and procedure of lexiscan/cardiolite stress test. documented in this encounterHOSPITAL [facility] ezeep ShowMe VIdeokealuation + Plan note No data available for this section [facility] [employer] evaluation note* Diagnosis Diarrhea, unspecified type documented in this encounter [facility] ezeep ShowMe VIdeokeGrand [facility]* Diagnosis Preop cardiovascular exam Pre-operative cardiovascular examination Primary hypertension Unspecified essential hypertension Mixed hyperlipidemia Intermittent chest pain Chest pain, unspecified documented in this encounter [facility] e[facility] Show[facility] VIdeokealumiddlet[facility] emergency department note* Diagnosis Other fatigue Chronic pain syndrome Anemia, unspecified type Low vitamin D level documented in this encounter [facility] [address] note* Diagnosis Nonspecific chest pain- Primary documented in this encounter [facility] note* Diagnosis Cervical spinal stenosis Spinal stenosis in cervical region documented in this encounter [facility] [address] note* Diagnosis Thoracic myofascial strain, initial encounter- Primary Left wrist sprain, initial encounter Closed nondisplaced fracture of phalanx of left index finger, unspecified phalanx, initial encounter documented in this encounter [facility] [address] [facility] note* Diagnosis Anemia, unspecified type Vitamin D deficiency Unspecified vitamin D deficiency Other fatigue Prostate cancer screening Special screening for malignant neoplasm of prostate documented in this encounter [facility] [place] [facility]* Diagnosis Cyst and pseudocyst of pancreas- Primary documented in this encounter [facility] note* Diagnosis IPMN (intraductal papillary mucinous neoplasm)- Primary Neoplasm of unspecified nature of digestive system documented in this encounter [facility] note* Diagnosis Cyst and pseudocyst of pancreas documented in this encounter [facility] note* Diagnosis Other chronic pancreatitis (HCC)- Primary Epigastric pain Abdominal pain, epigastric documented in this encounter [facility] note* Diagnosis Chest wall contusion, left, initial encounter- Primary Strain of tendon of left half of anterior chest wall documented in this encounter [facility] note* Diagnosis Left-sided chest wall pain- Primary Painful respiration Rib contusion, left, sequela documented in this encounter [facility] note* Diagnosis IPMN (intraductal papillary mucinous neoplasm)- Primary Neoplasm of unspecified nature of digestive system IPMN (intraductal papillary mucinous neoplasm) Neoplasm of unspecified nature of digestive system documented in this encounter [facility] note* Diagnosis IPMN (intraductal papillary mucinous neoplasm)- Primary Neoplasm of unspecified nature of digestive system Preoperative examination Preoperative examination, unspecified IPMN (intraductal papillary mucinous neoplasm) Neoplasm of unspecified nature of digestive system documented in this encounter [facility] note* Diagnosis Severe persistent asthma, unspecified whether complicated- Primary 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 [facility] Diagnosis Severe persistent asthma, unspecified whether [...] of digestive system [facility] Diagnosis Severe persistent asthma, unspecified whether [...] [facility] Diagnosis Severe persistent asthma, unspecified whether [...] of digestive system [facility] Diagnosis IPMN (intraductal papillary mucinous neoplasm)- [...] post-operative pain- Primary [facility]* Diagnosis Strain of neck muscle, initial encounter- Primary [facility] Diagnosis IPMN (intraductal papillary mucinous neoplasm)- [...] Primary Postsurgical hypoinsulinemia [facility] Diagnosis IPMN (intraductal papillary mucinous neoplasm)- [...] (HCC) Postsurgical hypoinsulinemia documented in this encounter [facility] note* Diagnosis IPMN (intraductal papillary mucinous [...] of digestive system documented in this encounter [facility] note* Diagnosis IPMN (intraductal papillary mucinous [...] Primary Postsurgical hypoinsulinemia [facility] Diagnosis IPMN (intraductal papillary mucinous neoplasm)- [...] Insulin pump status [facility]* Diagnosis Dysuria documented in this encounter [facility] note* Diagnosis Contusion of back, unspecified laterality, initial encounter- Primary Sprain of left hand, initial encounter Contusion of left elbow, initial encounter documented in this encounter [facility] note* Diagnosis Thoracic spondylosis- Primary Postlaminectomy syndrome, lumbar region Encounter for long-term opiate analgesic use Encounter for long-term (current) use of other medications [facility] Diagnosis Cervical radiculitis- Primary Brachial neuritis or radiculitis nos Postlaminectomy syndrome, lumbar region Encounter for long-term opiate analgesic use Encounter for long-term (current) use of other medications Cervicalgia documented [facility]* Diagnosis Thoracic spondylosis without myelopathy- Primary Thoracic spondylosis without myelopathy- Primary Thoracic spondylosis without myelopathy documented [facility]* Diagnosis Rib pain- Primary Chest pain, unspecified Abdominal pain, right upper quadrant documented in this encounter [facility] note* Diagnosis Postlaminectomy syndrome, lumbar region documented [facility]* Diagnosis Thoracic spondylosis without myelopathy- Primary Thoracic spondylosis without myelopathy- Primary Postlaminectomy syndrome, lumbar region Lumbosacral spondylosis without myelopathy Thoracic spondylosis without myelopathy documented [facility]* Diagnosis Thoracic spondylosis without myelopathy- Primary Postlaminectomy syndrome, lumbar region Encounter for long-term opiate analgesic use Encounter for long-term (current) use of other medications documented [facility]* Diagnosis Thoracic spondylosis without myelopathy- Primary Postlaminectomy syndrome, lumbar region Encounter for long-term opiate analgesic use Encounter for long-term (current) use of other medications documented [facility]* Diagnosis IPMN (intraductal papillary mucinous [...] [facility] Diagnosis Dysuria Vomiting and diarrhea Vomiting alone [facility] Diagnosis IPMN (intraductal papillary mucinous neoplasm)- [...] system [facility] Diagnosis IPMN (intraductal papillary mucinous neoplasm)- [...] of digestive system documented in this encounter [facility] note* Diagnosis IPMN (intraductal papillary mucinous [...] Insulin pump status documented in this encounter [facility] note* Diagnosis Influenza A Influenza with other respiratory manifestations Chest tightness Other chest pain documented in this encounter [facility] note* Diagnosis IPMN (intraductal papillary mucinous [...] of digestive system [facility] Diagnosis IPMN (intraductal papillary mucinous neoplasm)- [...] of digestive system documented in this encounter [facility] note* Diagnosis IPMN (intraductal papillary mucinous [...] of Dong's esophagus documented in this encounter [facility] note* Diagnosis Left lower quadrant abdominal pain History of diverticulitis [facility] Diagnosis IPMN (intraductal papillary mucinous neoplasm)- [...] (HCC) Postsurgical hypoinsulinemia [facility]* Diagnosis Left lower quadrant abdominal pain History of diverticulitis documented in this encounter [facility] note* Diagnosis Contusion of finger of left hand, unspecified finger, initial encounter- Primary documented in this encounter [facility] note* Diagnosis IPMN (intraductal papillary mucinous [...] Insulin pump status [facility]* Diagnosis BPH with obstruction/lower urinary tract symptoms Hypertrophy of prostate with urinary obstruction and other lower urinary tract symptoms (LUTS) Incomplete bladder emptying [facility] Diagnosis Acute pneumonia- Primary Right flank [...] pain, unspecified site [facility] Diagnosis Medical clearance for psychiatric admission- Primary Depression with suicidal ideation PTSD (post-traumatic stress disorder) Posttraumatic stress disorder [facility] Diagnosis Pneumonia of right middle lobe due to infectious organism- Primary Nausea vomiting and diarrhea Nausea with vomiting documented [facility] this [facility]* Diagnosis IPMN (intraductal papillary [...] (HCC) Postsurgical hypoinsulinemia [facility] Diagnosis IPMN (intraductal papillary mucinous [...] status [facility] Diagnosis BPH with obstruction/lower urinary tract symptoms- Primary Hypertrophy of prostate with urinary obstruction and other lower urinary tract symptoms (LUTS) Dysuria BPH with obstruction/lower urinary tract symptoms Hypertrophy of prostate with urinary obstruction and other lower urinary tract symptoms (LUTS) [facility] Diagnosis Melanocytic nevus of trunk- Primary Benign neoplasm of skin of trunk, except scrotum 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 [facility] Diagnosis BPH with obstruction/lower urinary tract symptoms- Primary Hypertrophy of prostate with urinary obstruction and other lower urinary tract symptoms (LUTS) Prostate cancer screening Special screening for malignant neoplasm of prostate Diarrhea, unspecified type Other fatigue BPH with obstruction/lower urinary tract symptoms Hypertrophy of prostate with urinary obstruction and other lower urinary tract symptoms (LUTS) [facility] Diagnosis BPH with obstruction/lower urinary tract symptoms- Primary Hypertrophy of prostate with urinary obstruction and other lower urinary tract symptoms (LUTS) [facility] Dis[facility] instructions No data available for this section [facility] InstructionsNot on filedocumented in this encounter [facility] [...] available for this section [facility] for referral (narrative)* Outpatient Procedure (Routine) - New RequestSpecialtyDiagnoses / ProceduresReferred By Contact Ref[facility] [place] Diagnoses Cyst and pseudocyst of pancreas Procedures EGD - THERAPEUTIC, EUS, OR TUBE INTERVENTIONS EGD INTRMURAL US NEEDLE ASPIRATE/BIOPSY [place]OPHAGS [place] Jacobson [place] [id number] [place] [address] [place] [address] Referral IDStatusReasonStart DateExpiration DateVisits RequestedVisits [id number] Request Auto-Generated Referral / [facility] for referral (narrative)* Outpatient Procedure (Routine) - ClosedSpecialtyDiagnoses / ProceduresReferred By ContactReferred To Contact [facility] Diagnoses Cyst and pseudocyst of pancreas Procedures EGD - THERAPEUTIC, EUS, OR TUBE INTERVENTIONS EGD INTRMURAL US NEEDLE ASPIRATE/[place] [address] [address] [place] [id number] [place] [id number] Referral IDStatusReasonStart DateExpiration DateVisits RequestedVisits [id number] Auto-Generated Referral / [facility] for visit Narrative* Outpatient Procedure (Routine) - ClosedSpecialtyDiagnoses / ProceduresReferred By ContactReferred To Contact [facility] Diagnoses Cyst and pseudocyst of pancreas Procedures EGD - THERAPEUTIC, EUS, OR TUBE INTERVENTIONS EGD INTRMURAL US NEEDLE ASPIRATE/BIOPSY ESOPHAGS Jesus Jacobson MD [address] [place] [address] [facility] [place] [address] [place] [address] Referral IDStatusReasonStart DateExpiration DateVisits RequestedVisits [id number] Auto-Generated Referral [facility] for visit Narrative* Outpatient Procedure (Routine) - ClosedSpecialtyDiagnoses / ProceduresReferred By ContactReferred To Contact [facility] Diagnoses IPMN (intraductal papillary mucinous neoplasm) Procedures EGD DIAGNOSTIC ESOPHAGOGASTRODUODENOSCOPY TRANSORAL DIAGNOSTIC Jesus Jacobson MD [address] [place] [address] Phone: tel: fax: [place] [address] Referral IDStatusReasonStart DateExpiration DateVisits RequestedVisits [id number] Auto-Generated Referral / [facility] for visit Narrative* Outpatient Procedure (Routine) - ClosedSpecialtyDiagnoses / ProceduresReferred By ContactReferred To Contact ENDOSCOPY Diagnoses IPMN (intraductal papillary mucinous neoplasm) Procedures EGD DIAGNOSTIC ESOPHAGOGASTRODUODENOSCOPY TRANSORAL DIAGNOSTIC Jesus Jacobson MD [address] [place] [address] Phone: tel: fax: Gastroenterology [address] [place] [address] Phone: tel: Referral IDStatusReasonStart DateExpiration DateVisits RequestedVisits [id number] Auto-Generated Referral / [facility] for visit Narrative* Imaging (Routine) - ClosedSpecialty Diagnoses / ProceduresReferred By ContactReferred To ContactRadiology Diagnoses Left lower quadrant abdominal pain History of diverticulitis Procedures CT ABDOMEN PELVIS W IV CONTRAST Additional Contrast? Radiologist Recommendation Eliana Springer, TREASURY CONSULTANT - FLOOR PERSON [address] [place] [address] Phone: tel: fax: Referral IDStatusReasonStart DateExpiration DateVisits RequestedVisits [id number]/28/20254/ [facility] for [facility] Narrative* Auth/CertSpecialtyDiagnoses / ProceduresReferred By ContactReferred To Contact Diagnoses BPH with obstruction/lower urinary tract symptoms Procedures CT LASER VAPORIZATION OF PROSTATE FOR URINE FLOW CYSTOSCOPY TRANSURETHRAL RESECTION PROSTATE LASER-photovaporization of prostate with greenlight laser Octavio Chatterjee MD [address] [place] [address], [address] [place] [address] Phone: tel: fax: [facility] [address] [place] [address] Referral [facility]Status[facility] DateExpiration DateVisits RequestedVisits [id number] [facility] Summary Purpose Family History No [...] Directives No Advanced Directives Records Found Date ActivatedDate InactivatedComments05/26/2025 12:16 AM05/27/2025 3:00 PMDate ActivatedDate InactivatedComments02/07/2024 1:19 PM02/08/2024 4:10 PMDate ActivatedDate InactivatedComments05/19/2023 12:25 AM05/22/2023 7:29 PMName RelationshipHealthcare Agent RelationshipCommunicationApril [facility] Primary Decision Maker* * * [facility] Code StatusDate ActivatedDate InactivatedCommentsFull Code05/19/2023 12:25 AM 05/22/2023 7:29 PMNameRelationshipHealthcare Agent RelationshipCommunicationApril HolbrookSpousePrimary Decision Maker* * Code StatusDate ActivatedDate InactivatedCommentsFull Code05/19/2023 12:25 AM 05/22/2023 7:29 PMNameRelationshipHealthcare Agent RelationshipCommunicationApril HolbrookSpousePrimary Decision Maker* * NameRelationshipHealthcare Agent RelationshipCommunicationApril HolbrookSpouse Primary Decision Maker* * Code StatusDate ActivatedDate InactivatedCommentsFull Code02/07/2024 1:19 PM 02/08/2024 4:10 PMCode StatusDate ActivatedDate InactivatedCommentsFull Code 05/19/2023 12:25 AM05/22/2023 7:29 PMNameRelationshipHealthcare Agent Relationship CommunicationApril HolbrookSpousePrimary Decision Maker* * * [facility] NameRelationshipHealthcare Agent RelationshipCommunicationApril HolbrookSpouse Primary Decision Maker* * * [facility] Code StatusDate ActivatedDate InactivatedCommentsFull Code02/07/2024 1:19 PM 02/08/2024 4:10 PMCode StatusDate ActivatedDate InactivatedCommentsFull Code 05/19/2023 12:25 AM05/22/2023 7:29 PMNameRelationshipHealthcare Agent Relationship CommunicationApril HolbrookSpousePrimary Decision Maker* * * [facility] NameRelationshipHealthcare Agent RelationshipCommunicationApril HolbrookSpouse Primary Decision Maker* * * [facility] Date ActivatedDate InactivatedComments02/07/2024 1:19 PM4 4:10 PMDate ActivatedDate InactivatedComments05/19/2023 12:25 AM8 7:29 PMName RelationshipHealthcare Agent RelationshipCommunicationApril HolbrookSpouse Primary Decision Maker* * * @[facility] NameRelationshipHealthcare Agent RelationshipCommunicationApril HolbrookSpouse Primary Decision Maker* * * [facility] NameRelationshipHealthcare Agent RelationshipCommunicationApril HolbrookSpouse Primary Decision Maker* * * [facility] NameRelationshipHealthcare Agent RelationshipCommunicationApril HolbrookSpouse Primary Decision Maker* * * [facility] NameRelationshipHealthcare Agent RelationshipCommunicationApril HolbrookSpouse Primary Decision Maker* * * [facility] NameRelationshipHealthcare Agent RelationshipCommunicationApril HolbrookSpouse Primary Decision Maker* * * [facility] NameRelationshipHealthcare Agent RelationshipCommunicationApril HolbrookSpouse Primary Decision Maker* * * [facility] Date ActivatedDate InactivatedComments05/24/2024 4:44 AMDate ActivatedDate InactivatedComments05/24/2024 4:44 AM05/24/2024 7:04 PMNameRelationshipHealthcare Agent RelationshipCommunicationApril HolbrookSpousePrimary Decision Maker* * * @[facility] NameRelationshipHealthcare Agent RelationshipCommunicationApril HolbrookSpouse Primary Decision Maker* * * [facility] Date ActivatedDate InactivatedComments02/07/2024 1:19 PM02/08/2024 4:10 PMDate ActivatedDate InactivatedComments05/19/2023 12:25 AM05/22/2023 7:29 PMName RelationshipHealthcare Agent RelationshipCommunicationApril HolbrookSpouse Primary Decision Maker* * * [facility] NameRelationshipHealthcare Agent RelationshipCommunicationApril HolbrookSpouse Primary Decision Maker* * * [facility] Date ActivatedDate InactivatedComments05/26/2025 12:16 AMNameRelationship Healthcare Agent RelationshipCommunicationApril HolbrookSpousePrimary Decision Maker* * * [facility] Date ActivatedDate InactivatedComments05/31/2025 12:47 AM06/03/2025 4:52 PMDate ActivatedDate InactivatedComments05/26/2025 12:16 AM05/27/2025 3:00 PMDate Activated Date InactivatedComments02/07/2024 1:19 PM02/08/2024 4:10 PMDate ActivatedDate InactivatedComments05/19/2023 12:25 AM05/22/2023 7:29 PMNameRelationshipHealthcare Agent RelationshipCommunicationApril HolbrookChildPrimary Decision Maker* * NameRelationshipHealthcare Agent RelationshipCommunicationApril HolkalaokChild Primary Decision Maker* * NameRelationshipHealthcare Agent RelationshipCommunicationApril HolbrookChild Primary Decision Maker* * Date ActivatedDate UbfnglptbmkJwlblcun22/4/2025 9:03 AMDate ActivatedDate InactivatedComments05/31/2025 12:47 AM06/03/2025 4:52 PMDate ActivatedDate InactivatedComments05/26/2025 12:16 AM05/27/2025 3:00 PMDate ActivatedDate InactivatedComments02/07/2024 1:19 PM02/08/2024 4:10 PMDate ActivatedDate InactivatedComments05/19/2023 12:25 AM05/22/2023 7:29 PMNameRelationshipHealthcare Agent RelationshipCommunicationApril HolbrookChildPrimary Decision Maker* * Reason for Referral SpecialtyDiagnoses / ProceduresReferred By ContactReferred To ContactRadiology Diagnoses Preop cardiovascular exam Primary hypertension Mixed hyperlipidemia Intermittent chest pain Procedures Nuclear stress test with myocardial perfusion Uli Strong MD [address] [place] [address] Referral IDStatusReasonStart DateExpiration DateVisits RequestedVisits [id number]/8/20239/[id number] / Procedures Referred By ContactReferred To ContactRadiology Diagnoses Cervical spinal stenosis Procedures CT CERVICAL SPINE W CONTRAST Danica Conklin MD [address] [place] [address] Referral IDStatusReasonStart DateExpiration DateVisits RequestedVisits [id number]/27/20246/[id number] / Procedures Referred By ContactReferred To Contact Diagnoses IPMN (intraductal papillary mucinous neoplasm) Preoperative examination Procedures REFER TO [facility] - PREOPERATIVE OPTIMIZATION OFFICE/OUTPATIENT [facility] 60 MINUTES Jesus Jacobson MD [address] [place] [address] Referral IDStatusReasonStart DateExpiration DateVisits RequestedVisits [id number] PCP Requested Referral [id number] / ProceduresReferred By ContactReferred To ContactVETERANS [facility] Diagnoses IPMN (intraductal papillary mucinous neoplasm) Preoperative examination Procedures ECG COMPLETE ECG ROUTINE ECG W/LEAST 12 LDS W/I&R Jesus Jacobson MD [address] [place] [address] [facility] [place] [address] [place] [address] Referral IDStatusReasonStart DateExpiration DateVisits RequestedVisits [id number] Request Auto-Generated Referral [id number] / ProceduresReferred By ContactReferred To Contact Diagnoses IPMN (intraductal papillary mucinous neoplasm) Preoperative examination Procedures CONSULT TO [facility] OFFICE/OUTPATIENT [facility] 60 MINUTES Jesus Jacobson MD [address] [place] [address] Referral IDStatusReasonStart DateExpiration DateVisits RequestedVisits [id number] PCP Requested Referral [id number] / ProceduresReferred By ContactReferred To ContactPain Management Diagnoses IPMN (intraductal papillary mucinous neoplasm) Preoperative examination Procedures CONSULT TO PAIN MGT OFFICE/OUTPATIENT [facility] 60 MINUTES Jesus Jacobson MD [address] [place] [address] Referral IDStatusReasonStart DateExpiration DateVisits RequestedVisits [id number] PCP Requested Referral [id number] / ProceduresReferred By ContactReferred To Contact Diagnoses Thoracic spondylosis Procedures Case request operating room: #2 Bilateral Thoracic Medial Branch block T7-8 and T8-9 Slime Romano, TREASURY CONSULTANT-FLOOR PERSON [address] [facility] [address] [place] [address] Referral IDStatusReasonStart DateExpiration DateVisits RequestedVisits [id number] Review/[id number] / Procedures Referred By ContactReferred To ContactRehabilitation Diagnoses Cervical radiculitis Joana Stratton MD [address] [place] [address] Referral IDStatusReasonStart DateExpiration DateVisits RequestedVisits [id number] Review Specialty Services Required Scheduling Instructions PT 3 times a week for 6 weeks. SpecialtyDiagnoses / ProceduresReferred By ContactReferred To Contact Diagnoses Thoracic spondylosis without myelopathy Procedures Case request operating room: #2 Bilateral Thoracic Medial Branch Block T7-8 and T8-9 Joana Stratton MD [address] [place] [address] Referral IDStatusReasonStart DateExpiration DateVisits RequestedVisits [id number] Review/[id number] / ProceduresReferred By ContactReferred To ContactRehabilitation Diagnoses Lumbosacral spondylosis without myelopathy Slime Romano, TREASURY CONSULTANT-FLOOR PERSON [address] [facility] [address] [place] [address] [facility] [address] [place] [address] Referral IDStatusReasonStart DateExpiration DateVisits RequestedVisits [id number] Specialty Services Required /[id number] / ProceduresReferred By ContactReferred To ContactRehabilitation Diagnoses Thoracic spondylosis without myelopathy Joana Stratton MD [address] [place] [address] Referral IDStatusReasonStoldwick DateExpiration DateVisits RequestedVisits [id number] Review Specialty Services Required [id number] / ProceduresReferred By ContactReferred To Contact Diagnoses Postlaminectomy syndrome, lumbar region Encounter for long-term opiate analgesic use Thoracic spondylosis without myelopathy Procedures Case request operating room: Bilateral thoracic Radiofrequency ablation T7-8 and T8-9 Joana Stratton MD [address] [place] [address] Referral IDStatusReasonAtwater DateExpiration DateVisits RequestedVisits [id number] Review Additional Source Comments (unrecognized sect ion and content) No Status Records FoundNo Status Records FoundNo Status Records FoundNo Status Records FoundNo Status Records FoundNo Status Records FoundNo Status Records FoundNo Status Records FoundNo Status Records FoundNo Status Records FoundNo Status Records FoundNo Status Records Found INFORMATION SOURCE (unrecogn ized section and content) DATE CREATED AUTHOR 09/27/2020 [facility] DATE CREATED AUTHOR AUTHOR'S ORGANIZ ATION 04/04/2024 [facility] DATE CREATED AUTHOR AUTHOR'S ORGANIZ ATION 05/26/2024 [facility] DATE CREATED AUTHOR AUTHOR'S ORGANIZ ATION 05/31/2024 [facility] DATE CREATED AUTHOR AUTHOR'S ORGANIZ ATION 07/03/2024 [facility] DATE CREATED AUTHOR AUTHOR'S ORGANIZ ATION 07/13/2024 [facility] DATE CREATED AUTHOR AUTHOR'S ORGANIZ ATION 04/16/2025 [facility] DATE CREATED AUTHOR AUTHOR'S ORGANIZ ATION 05/01/2025 [facility] DATE CREATED AUTHOR AUTHOR'S ORGANIZ ATION 06/03/2025 [facility] DATE CREATED AUTHOR AUTHOR'S ORGANIZ ATION 08/09/2025 [facility] DATE CREATED AUTHOR AUTHOR'S ORGANIZ ATION 08/19/2025 [facility] DATE CREATED AUTHOR AUTHOR'S ORGANIZ ATION 08/27/2025 [facility] Care Teams (unrecognized sec tion and content) Team MemberRelationshipSpecialtyStart DateEnd Eliana Springer, TREASURY CONSULTANT - FLOOR PERSON [address] [place] [address] PCP - GeneralCertified Nurse Practitioner04/23/23 MemberRelationshipSpecialty Start End Eliana Springer, TREASURY CONSULTANT - FLOOR PERSON [address] [place] [address] PCP - GeneralCertified Nurse Practitioner04/23/23 MemberRelationshipSpecialty Start End Eliana Springer, TREASURY CONSULTANT - FLOOR PERSON [address] [place] [address] PCP - GeneralCertified Nurse Practitioner04/23/23 MemberRelationshipSpecialty Start End Eliana Springer, TREASURY CONSULTANT - FLOOR PERSON [address] [place] [address] PCP - GeneralCertified Nurse Practitioner04/23/23 MemberRelationshipSpecialty Start End Eliana Springer, TREASURY CONSULTANT - FLOOR PERSON [address] [place] [facility] [place] [address] PCP - GeneralCertified Nurse Practitioner04/23/23 MemberRelationshipSpecialty Start DateEnd Eliana Springer, TREASURY CONSULTANT - FLOOR PERSON [address] [place] [address] PCP - GeneralCertified Nurse Practitioner04/23/23 MemberRelationshipSpecialty Start DateEnd Date Eliana Springer, TREASURY CONSULTANT - [facility] [address] [place] [facility] [place] [address] PCP - GeneralCertified Nurse Practitioner04/23/23 MemberRelationshipSpecialty Start DateEnd Date Eliana Springer, TREASURY CONSULTANT - FLOOR PERSON [address] [place] [facility] [place] [address] PCP - GeneralCertified Nurse Practitioner04/23/23 MemberRelationshipSpecialty Start DateEnd Date Eliana Springer, TREASURY CONSULTANT - FLOOR PERSON [address] [facility] [place] [address] PCP - GeneralCertified Nurse Practitioner04/23/23 MemberRelationshipSpecialty Start DateEnd Date Wesly Davies MD [address] [facility] [place] [address] ReferringGastroenterology07/16/24Team MemberRelationshipSpecialtyStart DateEnd Date Wesly Davies MD [address] [place] [address] ReferringGastroenterology07/16/24Team MemberRelationshipSpecialtyStart DateEnd Date Wesly Davies MD [address] [place] [address] ReferringGastroenterology07/16/24Team MemberRelationshipSpecialtyStart DateEnd Date Wesly Davies MD [address] [place] [address] ReferringGastroenterology07/16/24Team MemberRelationshipSpecialtyStart DateEnd Date Wesly Davies MD [address] [facility] [place] [address] [place] [address] ReferringGastroenterology07/16/24Team MemberRelationshipSpecialtyStart DateEnd Date Wesly Davies MD [address] [facility] [address] [place], [place] [address]- ReferringGastroenterology07/16/24Team MemberRelationshipSpecialtyStart DateEnd Date Wesly Davies MD [address] [facility] [place] [place] [address] [place] [address] ReferringGastroenterology07/16/24 Wesly Davies MD [address] [facility] [address] [place], [place] 5272040 BdjyiupmhIhlyocvipewsgpqt64/4/24Team MemberRelationshipSpecialtyStart DateEnd Date Wesly Davies MD [address] [facility] [place] [place] [address] [place] [address] ReferringGastroenterology07/16/24 Wesly Davies MD [address] [facility] [place] [address] [place] [address] CunamnfavSxgbkqgepholheev91/4/24Team MemberRelationshipSpecialtyStart DateEnd Date Wesly Davies MD [address] [facility] [place] [address] [place] [address] ReferringGastroenterology07/16/24 Wesly Davies MD [address] [facility] [address] [place], [place] 437[address]40 XccvlzqddUwzqjkvatyorbcbl92/4/24Team MemberRelationshipSpecialtyStart DateEnd Date Wesly Davies MD [address] [facility] [place] [address] [place] [address] ReferringGastroenterology07/16/24 Wesly Davies MD [address] [facility] [place] [address] [place] [address] IfvjvcrhlPbrfzsdmzsaqezey92/4/24Team MemberRelationshipSpecialtyStart DateEnd Date Eliana Springer APRN - FLOOR PERSON [address] [place] [address] PCP - GeneralCertified Nurse Practitioner04/23/23Te MemberRelationshipSpecialty Start DateEnd Date Wesly Davies MD [address] [facility] [address] [place], [place] 2515040 ReferringGastroenterology07/16/24 Wesly Davies MD [address] [facility] [address] [place], [place] 5667940 RurrkpnhjBtuemjuvtpagvqab46/4/24Team MemberRelationshipSpecialtyStart DateEnd Date Wesly Davies MD [address] [facility] [place] [place] [address] [place] [address] ReferringGastroenterology07/16/24 Wesly Davies MD [address] [facility] [address] [place], [place] 1236940 HaczbmmivBavcgzhpobfdmpkm00/4/24Te MemberRelationshipSpecialtyStart [facility] Wesly Davies MD [address] [facility] [address] [place], [place] 3417640 ReferringGastroenterology07/16/24 Wesly Davies MD [address] [facility] [address] [place], [place] 1472740 HviaxwhjwMlxhbezmnnhwwekg41/4/24Te MemberRelationshipSpecialtyWeston County Health Service - [place] Eliana Springer, TREASURY CONSULTANT.FLOOR PERSON [address] [place], [place] 5389883 P[facility] - [facility] Rddlqoxe86/25/24 Wesly Davies MD [facility] [facility] [address] [place], [place] 635[address]40 ReferringGastroenterology07/16/24 Wesly Davies MD [facility] [facility] [address] [place], [place] 8750440 ZazotxmeeLukjutvmmisjuaqq07/4/24Te MemberRelationshipSpecialtyStoldwick DateCit[facility] Eliana Springer, TREASURY CONSULTANT.FLOOR PERSON [address] [place] [address] PCP - [facility] Xgykolqo91/25/24 Wesly Davies MD [address] [facility] [address] [place], [place] 964[address]40 ReferringGastroenterology07/16/24 Wesly Davies MD [address] [facility] [address] [place], [place] 9713540 AnvokwoudAlfcmkitvaewtcni28/4/24Te MemberRelationshipSpecialtyStart DateEnd Date GianEliana lawson, TREASURY CONSULTANT.FLOOR PERSON [address] [place] [address] P[facility] - [facility] Zcyknawt40/25/24 Wesly Davies MD [address] [facility] [place], [place] 640[address]40 ReferringGastroenterology07/16/24 Wesly Davies MD [address] [facility] [address] [place], [place] 67[address]40 AxymhoegqIpmitsiiiieloyao39/4/24Te MemberRelationshipSpecialtyart DateEnd Date Eliana Springer, TREASURY CONSULTANT.FLOOR PERSON [address] [place] [address] PCP - [facility] Nvdsofmq54/25/24 Wesly Davies MD [address] [facility] [place], [place] 799[address]40 ReferringGastroenterology07/16/24 Wesly Davies MD [address] [facility] [place] 587[address]40 JcrbjxtcnJhqiboqisnzwivcj36/4/24Te MemberRelationshipSpecialtyart DateEnd Date Eliana Springer, TREASURY CONSULTANT.FLOOR PERSON [address] [place] [address] PCP - GeneralFamily Fvfvjvpi77/25/24 Wesly Davies MD [address] [facility] [address] [place], [place] 640[address]40 ReferringGastroenterology07/16/24 Wesly Davies MD [address] [facility] [address] [place], [place] 5832640 DujmaldvbTbxfmsgnlglyeakn02/4/24Team MemberRelationshipSpecialtyAtwater DateEnd Date GianEliana lawson, TREASURY CONSULTANT.FLOOR PERSON [address] [place] [address] PCP - [facility] Efcbtfuj09/25/24 Wesly Davies MD [facility] [facility] [address] [place], [place] 4568440 ReferringGastroenterology07/16/24 Wesly Davies MD [address] [facility] [address] [place], [place] 9270740 PzqboaqxcXdwfuxofuitxzqxd88/4/24Te MemberRelationshipSpecialtyAtwater DateEnd Date Eliana Springer, TREASURY CONSULTANT.FLOOR PERSON [address] [place] [address] PCP - Generalmily Rtjxvwcl44/25/24 Wesly Davies MD [address] [facility] [place] 5154240 ReferringGastroenterology07/16/24 Wesly Davies MD [address] [facility] [place] 1737240 JrexulyeyVloamnunmfycckny76/4/24Team MemberRelationshipSpecialtyStart DateEnd Date Eliana Springer TREASURY CONSULTANT.FLOOR PERSON [address] [place] [address] PCP - GeneralFamily Cimpfaqj29/25/24 Wesly Davies MD [address] [facility] [place] [address] [place] [address] ReferringGastroenterology07/16/24 Wesly Davies MD [address] [facility] [place] [address] JejcctodcIduuvbadkcedetia06/4/24Team MemberRelationshipSpecialtyStart DateEnd Date Eliana Springer, TREASURY CONSULTANT - FLOOR PERSON [address] [place] [address] PCP - GeneralCertified Nurse Practitioner04/23/23Te MemberRelationshipSpecialty Start DateEnd Date Eliana Springer, TREASURY CONSULTANT.FLOOR PERSON [address] [place] [address] PCP - GeneralFamily Yzlxqboe64/25/24 Wesly Davies MD [address] [place], [place] 9188640 ReferringGastroenterology07/16/24 Wesly Davies MD [address] [place] [address] VxjdjguqnFzdblkmgpataapxs25/4/24Team MemberRelationshipSpecialtyStart DateEnd Date Eliana Springer TREASURY CONSULTANT.FLOOR PERSON [address] [place] [address] PCP - GeneralFamily Bvxczfuw92/25/24 Wesly Davies MD [address] [facility] [place] [address] [place] [address] ReferringGastroenterology07/16/24 Wesly Davies MD [address] [facility] [place] [address] [place] [address] XumfdfmqxXrgorwptyfwpjvof23/4/24Te MemberRelationshipSpecialtyAtwater DateProvidence Mission HospitalEliana lawson, TREASURY CONSULTANT.FLOOR PERSON [address] [place] [address] PCP - Generalmily Uuxnpgti27/25/24 Wesly Davies MD [facility] [facility] [address] [place], [place] 3206440 ReferringGastroenterology07/16/24 Wesly Davies MD [facility] [facility] [address] [place], [place] 1149940 MtmhabflpUdgrcfykmuqjhuzo14/4/24Te MemberRelationshipSpecialSumma Health [facility] Campus DateCho[facility] Eliana Cardona, TREASURY CONSULTANT.FLOOR PERSON [address] [place] [address] PCP - Generalmily Iapmgnai61/25/24 Wesly Davies MD [address] [facility] [place] [address] [place] [address] ReferringGastroenterology07/16/24 Wesly Davies MD [address] [facility] [address] [place], [place] 7602240 WyjewhsjhYozsosppckgmmopq57/4/24Te MemberRelationshipSpecialtyAtwater DateEnd Date GianEliana lawson, TREASURY CONSULTANT.FLOOR PERSON [address] [place] [address] PCP - Generalmily Etvkjwxl62/25/24 Wesly Davies MD [facility] [facility] [address] [place], [place] 5756740 ReferringGastroenterology07/16/24 Wesly Davies MD [facility] [facility] [address] [place], [place] 1215740 VcwcyizxdIljhdqfdvrzbjheo01/4/24Te MemberRelationshipSpecialtyAtwater DateEnd Date Eliana Springer, TREASURY CONSULTANT.FLOOR PERSON [address] [place] [address] PCP - [facility] Plyvlabk31/25/24 Wesly Davies MD [address] [facility] [address] [place], [place] 5348540 ReferringGastroenterology07/16/24 Wesly Davies MD [address] [facility] [place] 1946440 NhstzgcwwHmlkdhysotpmirga47/4/24Te MemberRelationshipSpecialtyAtwater DateEnd Date Eliana Springer, TREASURY CONSULTANT.FLOOR PERSON [address] [place] [address] PCP - GeneralFamily Alotzfmv53/25/24 Wesly Davies MD [address] [facility] [place] [place] [address] ReferringGastroenterology07/16/24 Wesly Davies MD [address] [facility] [place] 3526840 RweaemrtkQdsbqsyaewzpduhp43/4/24Team MemberRelationshipSpecialtyStart DateEnd Date Eliana Springer APRN - FLOOR PERSON [address] [place] [address] PCP - GeneralCertified Nurse Practitioner04/23/23 MemberRelationshipSpecialty Start DateEnd Date Eliana Springer APRN - RAMSEY [address] [place] [address] PCP - GeneralCertified Nurse Practitioner04/23/23Te MemberRelationshipSpecialty Start DateEnd Date Eliana Springer APRN-RAMSEY [address] [place] [address] PCP - GeneralNurse Practitioner07/16/23 MemberRelationshipSpecialtyStart Date End Date Eliana Springer APRN-RAMSEY [address] [place] [address] PCP - GeneralNurse Practitioner07/16/23Te MemberRelationshipSpecialtyStart Date End Date Eliana Springer APRN-RAMSEY [address] [place] [address] PCP - GeneralNurse Practitioner07/16/23 MemberRelationshipSpecialtyStart Date End Date Eliana Springer APRN-FLOOR PERSON [address] [place] [facility] [place] [address] PCP - GeneralNurse Practitioner07/16/23 MemberRelationshipSpecialtyStart Date End Date Gian, NATE Black CNP [address] [place] [facility] [place] [address] PCP - GeneralCertified Nurse Practitioner04/23/23 MemberRelationshipSpecialty Start DateEnd Date Gian, CHITO Black [address] [place] [facility] [place] [address] PCP - GeneralNurse Practitioner07/16/23 MemberRelationshipSpecialtyStart Date End Date Gian, CHITO Black [address] [place] [facility] [place] [address] PCP - GeneralNurse Practitioner07/16/23 MemberRelationshipSpecialtyStart Date End Date Gian, CHITO Black [address] [place] [facility] [place] [address] PCP - GeneralNurse Practitioner07/16/23 MemberRelationshipSpecialtyStart Date End Date Gian, CHITO Black [address] [place] [facility] [place] [address] PCP - GeneralNurse Practitioner07/16/23am MemberRelationshipSpecialtyStart Date End Date Gian, CHITO Black [address] [place] [facility] [place] [address] PCP - GeneralNurse Practitioner07/16/23am MemberRelationshipSpecialtyStart Date End Date Gian, CHITO Black [address] [facility] [place] [address] PCP - GeneralNurse Practitioner07/16/23 MemberRelationshipSpecialtyStart Date End Date Eliana Springer, TREASURY CONSULTANT-FLOOR PERSON [address] [facility] [place] [address] PCP - GeneralNurse Practitioner07/16/23am MemberRelationshipSpecialtyStart Date End Date Elaina Springer, TREASURY CONSULTANT-FLOOR PERSON [address] [facility] [place] [address] PCP - GeneralNurse Practitioner07/16/23Te MemberRelationshipSpecialtyStart Date End Date Eliana Springer, TREASURY CONSULTANT.FLOOR PERSON [address] [place] [address] PCP - GeneralFamily Fjcxpjrx91/25/24 Wesly Davies MD [address] [place] [address] ReferringGastroenterology07/16/24 Wesly Davies MD [address] [place], [place] 2900940 KsgexembeGuzpbuqbkexhsedl77/4/24Team MemberRelationshipSpecialtyStart DateEnd Date Eliana Springer, TREASURY CONSULTANT.FLOOR PERSON [address] [place] [address] PCP - GeneralFamily Niwdbrem87/25/24 Wesly Davies MD [address] [place], [place] 8535940 ReferringGastroenterology07/16/24 Wesly Davies MD [address] [facility] [address] [place], [place] [address]40 ZelkluvgiRyxbadhsbnojadhm18/4/24Team MemberRelationshipSpecialtyStart DateEnd Date Eliana Springer, TREASURY CONSULTANT - FLOOR PERSON [address] [place], [place] 8211683 PCP - GeneralCerkaiser richmond medical center Nurse Practitioner04/23/23Team MemberRelationshipSpecialty Start DateEnd Date Eliana Springer, TREASURY CONSULTANT.FLOOR PERSON [address] [place], [place] [address] PCP - GeneralFamily Fizqjvol66/25/24 Wesly Davies MD [address] [facility] [address] [place], [place] 2799540 ReferringGastroenterology07/16/24 Wesly Davies MD [facility] [facility] [address] [place], [place] 7739640 GggwmfsgvUcjznhubsunetxwf31/4/24Team MemberRelationshipSpecialtyStoldwick DateEnd Date Eliana Springer, TREASURY CONSULTANT.FLOOR PERSON [address] [place], [place] [address] PCP - GeneralFamily Sctxhfho08/25/24 Wesly Davies MD [facility] [facility] [address] [place], [place] 5594740 ReferringGastroenterology07/16/24 Wesly Davies MD [address] [facility] [place] [address] [place] [address] QluvceljuPhktzixgjprxundv56/4/24Te MemberRelationshipSpecialtyStart DateEnd Date Eliana Springer APRN - FLOOR PERSON [address] [place] [facility] [place] [address] PCP - GeneralCertified Nurse Practitioner04/23/23 MemberRelationshipSpecialty Start DateEnd Date Eliana Springer, TREASURY CONSULTANT.FLOOR PERSON [address] [place] [place] [address] PCP - GeneralFamily Llfhpxvt19/25/24 Wesly Davies MD [address] [place] [address] ReferringGastroenterology07/16/24 Wesly Davies MD [address] [place] [address] LrbldkfpjEidxoxumhnccoxgl30/4/24Te MemberRelationshipSpecialtyStart DateEnd Date Eliana Springer, TREASURY CONSULTANT - FLOOR PERSON [address] [place] [facility] [place] [address] PCP - GeneralCertified Nurse Practitioner04/23/23 MemberRelationshipSpecialty Start DateEnd Date Eliana Springer, TREASURY CONSULTANT - FLOOR PERSON [address] [place] [facility] [place] [address] PCP - GeneralCertified Nurse Practitioner04/23/23 MemberRelationshipSpecialty Start DateEnd Date Eliana Springer, TREASURY CONSULTANT - FLOOR PERSON [address] [place] [facility] [place] [address] PCP - GeneralCertified Nurse Practitioner04/23/23Te MemberRelationshipSpecialty Start DateEnd Eliana Springer APRN - CNP [address] [place] [address] PCP - GeneralCertified Nurse Practitioner04/23/23Te MemberRelationshipSpecialty Start DateEnd [facility] Eliana Springer APRN - CNP [address] [place] [address] PCP - GeneralCertified Nurse Practitioner04/23/23Te MemberRelationsOlive View-UCLA Medical Centerpecialty Start [facility] Eliana Springer APRN - CNP [address] [place] [address] PCP - GeneralCertified Nurse Practitioner04/23/23Te MemberRelationsOlive View-UCLA Medical Centerpecialty Start DateEnd [facility] Eliana Springer APRN - CNP [address] [place] [id number] PCP - GeneralCertified Nurse Practitioner04/23/23Te MemberSt. James Hospital and Clinicialty Start [facility] HospitalEliana lawson APRN - CNP [address] [place] [id number] PCP - GeneralCertified Nurse Practitioner04/23/23 Reason for Visit (unrecogniz ed section and content) SpecialtyDiagnoses / ProceduresReferred By ContactReferred To ContactRadiology Diagnoses Preop cardiovascular exam Primary hypertension Mixed hyperlipidemia Intermittent chest pain Procedures Nuclear stress test with myocardial perfusion Uli Strong MD [address] [place] [address] Referral IDStatusReasonStart DateExpiration DateVisits RequestedVisits [id number]/[id number] PainPatient presents with complaint of chest pain with shortness 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 Patient reports that the pain was substernal with radiation to left shoulder and shortness of breath. Pain isdescribed as sharpness denies nausea SpecialtyDiagnoses / ProceduresReferred By ContactReferred To ContactRadiology Diagnoses Cervical spinal stenosis Procedures CT CERVICAL SPINE W CONTRAST Danica Conklin MD [address] [place] [address] Referral IDStatusReasonStart DateExpiration DateVisits RequestedVisits [id number]/27/20246/[id number] yesterday, pain in the lumbar and mid area, pain in left thumb and left wristReasonComments Stage Electrician - OtherRequest for recordsReasonCommentsClinic PrepReason CommentsimagingPt is unable to get imaging for 06/26/24 US we do have reports no imaging thoReasonCommentsResultsPatient QuestionReasonCommentsAbdominal Pain Patient with chronic abdominal pain due to pancreatitis, reports pain to upper right and left quadrant worsening today. Patient took tramadol and tylenol without relief. [facility] to get it removed but it hasn't been scheduled ReasonCommentsFallPatient states he was hanging up some trim yesterday and fell down approximately 6-8 stairs and landed on the left side of his ribs. Patient complains of left rib pain.ReasonCommentsPatient UpdateReasonCommentsRib Pain (injury)Pt reports fall down 1/2 flight of stairs on . Pt was seen on Sunday , admin steroid and muscle relaxer. Chest xray clear at that time. Pt reports worsening left rib pain. Muscle relaxer's not working per uiCoyjvbKlkvgoqi53/1/2024 pre op 08/28/2024 CURETotal pancReasonCommentsNewSpecialtyDiagnoses / ProceduresReferred By ContactReferred To Contact Diagnoses IPMN (intraductal papillary mucinous neoplasm) Preoperative examination Procedures REFER TO [facility] - PREOPERATIVE OPTIMIZATION OFFICE/OUTPATIENT [facility] [address] [place] [address] [place] [address] Referral IDStatusReasonStart DateExpiration DateVisits RequestedVisits [id number] PCP Requested Referral [id number] Gen P28VxnayvNsureqwaEpycfdwsVCA 3164 ReasonCommentsPatient UpdatePatient QuestionReasonCommentsNeck PainPt states he has stiff neck. States [facility] pancreas and spleen [facility] .ReasonCommentsFollow UpReasonCommentsFormsReason CommentsInsurance AuthorizationInsulin Pump [[facility]]ReasonOnset Date CommentsRefill Avssnpd60/29/2024ReasonCommentsInsulin pump start trainingReason CommentsPost OpReasonCommentsFormsDWO [place] Insulin pumpReasonComments DiabetesReasonCommentsInsulin Pump Start Follow UpReasonCommentsFallPatient c/o a fall on the ice, pain when lifting arms, back pain, left arm and hand pain. ReasonCommentsBack PainNeck PainReasonCommentsBack PainReasonCommentsPatient QuestionReasonCommentsRib Pain (injury)Severe right rib pain when taking deep breaths that started a couple of days ago. Went to [facility] in [place] on 12/03 took an xray and found metal in ribs- thought it was shrapnel or surgical clip (last had surgery August 2024 and shrapnel was from service injury but pt states that has all been taken out). Fell on ice a couple of days ago and only back and wrist were injured thenReasonOnset DateCommentsMed [id number] PainNeck PainReasonOnset DateComments Dwnvfjrnxgkz89/03/2024ReasonCommentsBack PainReasonCommentsPost Op Follow Up ReasonCommentsRefill RequestReasonCommentsFinger InjuryPatient to the ER with complaint of left 3rd and 4th digit pain after injury. Patient was with his in the [employer] when he was attempting to put up the foot portion of the recliner when his fingers were pinched. Ice pack applied in triageReasonComments Request For Clinical NotesReasonCommentsAppointmentReasonCommentsprogress notes ReasonCommentsFlank PainPatient complains of right flank pain that has been ongoing since Sunday. Patient states increased pain with any movement. SpecialtyDiagnoses / ProceduresReferred By ContactReferred To Contact Diagnoses Acute pneumonia Irvin Shepard MD [address] [place] [address] Phone: tel: fax: [facility] [address] [place] [address] Referral IDStatusReasonStart DateExpiration DateVisits RequestedVisits [id number] Health ProblemPatient states that he just found out his wants .Patient states that he did have thought about killing himself but has no plans. Police were called and brought patient to the ed for mental eval.ReasonCommentsFormsADS order formReasonCommentsVomitingPt. Reports vomiting, diarrhea and body aches. Ongoing for couple of days. Pt. Reports took aleve at home with minimal relief.IllnessReasonCommentsSkin Check Scheduled Active and Recently Administ ered Medications (unrecognized section and content) Medication Order/// aspirin chewable tablet 324 mg (COMPLETED) 324 mg, Oral, ONCE, 1 dose, On Sun03/17/24 at 1430 * 1430 (Given - Provider: Susu Acevedo RN) ketorolac (TORADOL) injection 30 mg (COMPLETED) 30 mg, IntraVENous, ONCE, 1 dose, On Sun03/17/24 at 1515, Do not administer for more than 5 days. * 1505 (Given - Provider: Susu Acevedo RN) Medication Order/// nitroGLYCERIN (NITROSTAT) SL tablet 0.4 mg 0.4 mg, SubLINGual, EVERY 5 MIN PRN, Starting on Sun03/17/24 at 1420, Until Discontinued, Chest pain, Place 1 tablet under tongue upon chest pain, wait 5 minutes and may repeat up to 3 doses in 15 minutes. Do not crush or break. * 1433 (Given - Provider: Susu Acevedo RN) Medication Order// HYDROmorphone HCl PF (DILAUDID) injection 1 mg (COMPLETED) 1 mg, IntraVENous, ONCE, 1 dose, On Sun08/05/24 at 1945, If oral and IV narcotics ordered, use oral first and only use IV if oral is ineffective or cannot take oral. Do Not give oral and IV within 1hour of each other unless specifically ordered. * 1954 (Given - Provider: Jess Hackett, RN) metoclopramide (REGLAN) injection 10 mg (COMPLETED) 10 mg, IntraVENous, ONCE, 1 dose, On Sun08/05/24 at 1945, IV Push: Max 10 mg over 1-2 minutes. * 1952 (Given - Provider: Jess Hackett, [facility]) sodium chloride 0.9 % bolus 1,000 mL (COMPLETED) 1,000 mL (10.3 mL/kg), IntraVENous, at 983.6 mL/hr, Administer over 61 Minutes, ONCE, On Sun08/05/24 at 194, For 1 dose * 1953 (New Bag - Provider: Jess Hackett RN) * 2099 (Stopped - Provider: Lucy Alatorre RN) Medication Order/// methylPREDNISolone acetate (DEPO-MEDROL) injection 40 mg (COMPLETED) 40 mg, IntraMUSCular, ONCE, 1 dose, On Sun08/08/24 at 1415 * 1409 (Given - Provider: Luis Mancia RN) Medication Order/// ketorolac (TORADOL) injection 30 mg (COMPLETED) 30 mg, IntraMUSCular, ONCE, 1 dose, On Sun08/11/24 at 1330, Do not administer for more than 5 days. * 1328 (Given - Provider: Manuela Payan, [facility]) Medication Order//[id number]/ acetaminophen (TYLENOL) tablet 650 mg (COMPLETED) 650 mg, Oral, ONCE, 1 dose, On Sun09/05/24 at 2145, Maximum dose of acetaminophen is 4000 mg from all sources in 24 hours. * 2223 (Given - Provider: Selene Alvarez RN) ketorolac (TORADOL) injection 30 mg (COMPLETED) 30 mg, IntraMUSCular, ONCE, 1 dose, On Sun09/05/24 at 2145, Do not administer for more than 5 days. * 2224 (Given - Provider: Selene Alvarez, [facility]) orphenadrine (NORFLEX) injection 60 mg (COMPLETED) 60 mg, IntraMUSCular, ONCE, 1 dose, On Sun09/05/24 at 2145 * 2223 (Given - Provider: Selene Alvarez RN) Medication Order/ ketorolac (TORADOL) injection 30 mg (COMPLETED) 30 mg, IntraMUSCular, ONCE, 1 dose, On Sun11/30/24 at 1600, Do not administer for more than 5 days. * 1554 (Given - Provider: Luis Mancia RN) Medication Order/ fentaNYL (SUBLIMAZE) injection 50 mcg (COMPLETED) 50 mcg, IntraVENous, ONCE, 1 dose, On Sun12/05/24 at 1645, If oral and IV narcotics ordered, use oral first and only use IV if oral is ineffective or cannot take oral. Do Not give oral and IV within 1 hour of each other unless specifically ordered. * 1658 (Given - Provider: Manuela Payan RN) sodium chloride 0.9 % bolus 1,000 mL (COMPLETED) 1,000 mL (11.6 mL/kg), IntraVENous, at 2,000 mL/hr, Administer over 30 Minutes, ONCE, On Sun12/05/24 at 1645, For 1 dose * 1657 (New Bag - Provider: Manuela Payan RN) * 1747 (Stopped - Provider: Manuela Payan RN) sodium chloride flush 0.9 % injection 3 mL(Linked Group 1) 3 mL, IntraVENous, EVERY 8 HOURS, First dose on Sun12/05/24 at 1645, Until Discontinued, Flush linewith 3-5 mL * 1645 (Due) Medication Order/ iopamidol (ISOVUE-370) 76 % injection 75 mL (COMPLETED) 75 mL, IntraVENous, IMG ONCE PRN, 1 dose, Starting on Sun12/05/24 at 1717, Until Sun12/05/24 at 1734, Other * 1734 (Given - Provider: Alexandrea Wilcox) Order Group 1: Saline lock IV (COMPLETED) Routine, CONTINUOUS, Starting on Sun12/05/24 at 1645, Until Specified And sodium chloride flush 0.9 % injection 3 mLJump to med 3 mL, IntraVENous, EVERY 8 HOURS, First dose on Sun12/05/24 at 1645, Until Discontinued, Flush linewith 3-5 mL Medication Order//03/2025 acetaminophen (TYLENOL) tablet 650 mg (COMPLETED) 650 mg, Oral, ONCE, 1 dose, On Sun02/24/25 at 1245, Maximum dose of acetaminophen is 4000 mg from all sources in 24 hours. * 1248 (Given - Provider: Clementina Ahumada, [facility]) Medication Order//03/2025 amitriptyline (ELAVIL) tablet 50 mg 50 mg, Oral, NIGHTLY, First dose on Sun05/26/25 at 0045, Until Discontinued, at bedtime. * 0048 (Given - Provider: Cristina Moreau RN) * 210 (Given - Provider: Rosenda Davis RN) * 2100 (Due) amLODIPine (NORVASC) tablet 2.5 mg 2.5 mg, Oral, DAILY, First dose on Sun05/26/25 at 0900, Until Discontinued * 0912 (Given - Provider: Clementina Ahumada, [facility]) * 0846 (Given - Provider: Sneha Sims RN) amoxicillin-clavulanate (AUGMENTIN) 875-125 MG per tablet 1 tablet 1 tablet, Oral, EVERY 12 HOURS SCHEDULED (2 times per day), 16 doses, First dose on Sun05/27/25 at 0900, Last dose on Sun06/03/25 at 2100, Antimicrobial Indications: Pneumonia (CAP), CAP duration of therapy: Other, Other CAP Duration: 8 days * 0846 (Given - Provider: Sneha Sims RN) * 2100 (Due) atorvastatin (LIPITOR) tablet 40 mg 40 mg, Oral, DAILY, First dose on Sun05/26/25 at 0900, Until Discontinued, On hold since Sun05/26/2025 at 0127 until manually unheld * 0127 (Held by provider - Provider: Rosenda Rankin APRN - FLOOR PERSON - Reason: Other) * 0900 (Automatically Held - Provider: NATE Griffin CNP) * 0900 (Automatically Held - Provider: NATE Griffin CNP) azithromycin (ZITHROMAX) 500 mg in sodium chloride 0.9 % 250 mL IVPB ([id number]) (COMPLETED) 500 mg, IntraVENous, ONCE, 1 dose, On Sun05/25/25 at 2330, Antimicrobial Indications: Pneumonia (CAP), Use 20mm (Blue) [id number] Adapter Preparation instructions: Attach medication vial to one 20mm (Blue) [id number] adapter. Selvin fluid bag with adapter, mix, and administer per order. * 0005 (New Bag - Provider: Mellissa Akins RN) * 0007 (Stopped - Provider: Clementina Ahumada, RN) * 0007 (Stopped - Provider: Clementina Ahumada RN) * 0218 (Stopped - Provider: Cristina Moreau RN) azithromycin (ZITHROMAX) tablet 500 mg (CANCELED)(Linked Group 1) 500 mg, Oral, EVERY 24 HOURS, 3 doses, First dose on Sun05/26/25 at 2300, Last dose on Sun05/28/25 [id number], Antimicrobial Indications: Pneumonia (CAP), CAP duration of therapy: Other, Other CAP Duration: 3 days * 2347 (Given - Provider: Rosenda Davis RN) budesonide-formoterol (SYMBICORT) 160-4.5 MCG/ACT inhaler 2 puff 2 puff, Inhalation, 2 TIMES DAILY RESP, First dose on Sun05/26/25 at 0045, Until Discontinued, Substituted for Fluticasone-vilanterol (BREO ELLIPTA). * 0038 (Not Given - Provider: Ana Barrios RCP - Reason: Other - Comment: Will start in the morning) * 1035 (Given - Provider: Melva Chaparro RCP) * 2033 (Given - Provider: Ana Barrios RCP) * 0959 (Given - Provider: Melva Chaparro RCP) * 2100 (Due - Provider: Velvet Santana RCP) cefTRIAXone (ROCEPHIN) 1,000 mg in sterile water 10 mL IV syringe (COMPLETED) 1,000 mg, IntraVENous, ONCE, On Sun05/25/25 at 2330, For 1 dose, Administer as slow IV Push over 5 mins Reconstitute 1 g vials with 9.6 mL of designated diluent to produce a 100 mg/mL solution. * 2327 (Given - Provider: Mellissa Akins RN) cefTRIAXone (ROCEPHIN) 1,000 mg in sterile water 10 mL IV syringe (CANCELED) (Linked Group 1) 1,000 mg, IntraVENous, EVERY 24 HOURS, First dose on Sun05/26/25 at 2300, For 5 days, Administer as slow IV Push over 5 mins Reconstitute 1 g vials with 9.6 mL of designated diluent to produce a 100 mg/mL solution. * 2347 (Given - Provider: Rosenda Davis RN) cetirizine (ZYRTEC) tablet 10 mg 10 mg, Oral, DAILY, First dose on Sun05/26/25 at 0900, Until Discontinued, Substituted for Fexofenadine (CHAAK). * 0911 (Given - Provider: Clementina Ahumada RN) * 0846 (Not Given - Provider: Sneha Sims RN - Reason: Patient/family refused) clonazePAM (KLONOPIN) tablet 0.5 mg 0.5 mg, Oral, DAILY, First dose on Sun05/26/25 at 0900, Until Discontinued * 0911 (Given - Provider: Clementina Ahumada RN) * 0846 (Given - Provider: Sneha Sims RN) clonazePAM (KLONOPIN) tablet 2 mg 2 mg, Oral, Nightly, First dose on Sun05/26/25 at 0045, Until Discontinued * 0047 (Given - Provider: Cristina Moreau RN) * 2105 (Given - Provider: Rosenda Davis RN) * 2100 (Due) doxycycline hyclate (VIBRAMYCIN) capsule 100 [...] dose. Take 1 h before or 2 hafter dairy, calcium, iron, magnesium, aluminum or zinc. * 0846 (Given - Provider: Sneha Sims RN) * 2100 (Due) enoxaparin (LOVENOX) injection 40 mg 40 mg, SubCUTAneous, DAILY, First dose on Sun05/26/25 at 0900, Until Discontinued, Indication of Use: Prophylaxis-DVT/PE * 0914 (Given - Provider: Clementina Ahumada RN) * 0846 (Given - Provider: Sneha Sims RN) fenofibrate (TRICOR) tablet 54 mg 54 mg, Oral, DAILY, First dose on Sun05/26/25 at 0900, Until Discontinued, Substituted for Fenofibrate (Non-Formulary Dose)., On hold since Sun05/26/2025 at 0126 until manually unheld * 0126 (Held by provider - Provider: NATE Griffin CNP - Reason: Other) * 0900 (Automatically Held - Provider: NATE Griffin CNP) * 0900 (Automatically Held - Provider: NATE Griffin CNP) ferrous sulfate (IRON 325) tablet 325 mg (CANCELED) 325 mg, Oral, DAILY WITH BREAKFAST, First dose on Sun05/26/25 at 0800, Until Discontinued * 0911 (Given - Provider: Clementina Ahumada RN) ferrous sulfate (IRON 325) tablet 325 mg 325 mg, Oral, DAILY WITH LUNCH, First dose (after last modification) on Sun05/27/25 at 1200, Until Discontinued, Separate from Doxycycline by at least 2 hours * 1214 (Given - Provider: Sneha Sims RN) HYDROcodone-acetaminophen (NORCO) 5-325 MG per tablet 1 tablet (COMPLETED) 1 tablet, Oral, ONCE, 1 dose, On Sun05/25/25 at 2330, Maximum dose of acetaminophen is 4000 mg from all sources in 24 hours. * 2326 (Given - Provider: Mellissa Akins RN) insulin lispro (HUMALOG,ADMELOG) injection vial 1 Units 1 Units, SubCUTAneous, ONCE, 1 dose, On Sun05/26/25 at 0045, Per pump * 0049 (Not Given - Provider: Cristina Moreau RN - Reason: Patient/family refused - Comment: BS 82) ipratropium 0.5 mg-albuterol 2.5 mg (DUONEB) nebulizer solution 1 Dose 1 Dose, Inhalation, 4 TIMES DAILY RESP, First dose (after last modification) on Sun05/26/25 at 0600,Until Discontinued, Initiate RT Bronchodilator Protocol: Yes - Inpatient Protocol * 0606 (Given - Provider: Ana Barrios RCP) * 1035 (Given - Provider: Melva Chaparro RCP) * 1509 (Given - Provider: Melva Chaparro RCP) * 2033 (Given - Provider: Ana Barrios RCP) * 0452 (Given - Provider: Ana Barrios RCP) * 0959 (Given - Provider: Melva Chaparro RCP) * 1600 (Due - Provider: Ana Barrios RCP) * 2000 (Due - Provider: Ana Barrios RCP) ekofpz-jndsmfzt-ijfdura (ZENPEP) delayed release capsule 35,000 Units 35,000 Units (rounded from 36,000 Units), Oral, 3 TIMES DAILY WITH MEALS, First dose on Sun05/26/25 at 0800, Until Discontinued, Substituted for pancrelipase (CREON). * 0916 (Given - Provider: Clementina Ahumada RN) * 1204 (Given - Provider: Clementina Ahumada RN) * 1715 (Given - Provider: Clementina Ahumada RN) * 0845 (Given - Provider: Sneha Sims RN) * 1214 (Given - Provider: Sneha Sims RN) * 1700 (Due) metoclopramide (REGLAN) injection 10 mg (COMPLETED) 10 mg, IntraVENous, ONCE, 1 dose, On Sun05/25/25 at 1745, IV Push: Max 10 mg over 1-2 minutes. * 1806 (Given - Provider: Manuela Payan, [facility]) montelukast (SINGULAIR) tablet 10 mg 10 mg, Oral, NIGHTLY, First dose on Sun05/26/25 at 0045, Until Discontinued * 0049 (Given - Provider: Cristina Moreau RN) * 2104 (Given - Provider: Rosenda Davis RN) * 2100 (Due) morphine sulfate (PF) injection 4 mg (COMPLETED) 4 mg, IntraVENous, ONCE, 1 dose, On Sun05/25/25 at 1745, If oral and IV narcotics ordered, use oral first and only use IV if oral is ineffective or cannot take oral. Do Not give oral and IV within 1 hour of each other unless specifically ordered. * 180 (Given - Provider: Manuela Payan RN) morphine sulfate (PF) injection 4 mg (COMPLETED) 4 mg, IntraVENous, ONCE, 1 dose, On Sun05/25/25 at 2000, If oral and IV narcotics ordered, use oral first and only use IV if oral is ineffective or cannot take oral. Do Not give oral and IV within 1 hour of each other unless specifically ordered. * 1951 (Given - Provider: Mellissa Akins, [facility]) pantoprazole (PROTONIX) tablet 40 mg 40 mg, Oral, DAILY BEFORE BREAKFAST, First dose on Sun05/26/25 at 0700, Until Discontinued, Do not crush or break. Substituted for Omeprazole (PRILOSEC). * 0911 (Given - Provider: Clementina Ahumada RN) * 0846 (Given - Provider: Sneha Sims RN) prazosin (MINIPRESS) capsule 1 mg 1 mg, Oral, NIGHTLY, First dose on Sun05/26/25 at 0045, Until Discontinued * 0048 (Given - Provider: Cristina Moreau, [facility]) * 210 (Given - Provider: Rosenda Davis RN) * 2100 (Due) sodium chloride 0.9 % bolus 500 mL (COMPLETED) 500 mL, IntraVENous, at 247.9 mL/hr, Administer over 121 Minutes, ONCE, On Sun05/25/25 at 1745, For 1 dose * 180 (New Bag - Provider: Manuela Payan RN) * 2005 (Stopped - Provider: Mellissa Akins, [facility]) sodium chloride 0.9 % bolus 500 mL 500 mL, IntraVENous, at 247.9 mL/hr, Administer over 121 Minutes, ONCE, On Sun05/25/25 at 2330, For 1 dose * 0039 (Not Given - Provider: Cristina Moreau RN - Reason: Other - Comment: ER order) sodium chloride flush 0.9 % injection 5-40 mL 5-40 mL, IntraVENous, EVERY 12 HOURS SCHEDULED (2 times per day), First dose on Sun05/26/25 at 0900,Until Discontinued, For Line Patency: Peripheral IV = [...] Midline or Central Line = 20 mL/lumen * 0917 (Not Given - Provider: Clementina Ahumada RN - Reason: IV Fluid Infusing) * 2005 (Not Given - Provider: Rosenda Davis RN - Reason: IV Fluid Infusing) * 0846 (Given - Provider: Sneha Sims RN) * 2100 (Due) tamsulosin (FLOMAX) capsule 0.4 mg 0.4 mg, Oral, DAILY, First dose on Sun05/26/25 at 0900, Until Discontinued, Do not crush or break. Give 30 minutes after a full meal to limit risk of orthostatic hypotension/falls. * 0911 (Given - Provider: Clementina Ahumada RN) * 0846 (Given - Provider: Sneha Sims RN) traMADol (ULTRAM) tablet 100 mg 100 mg, Oral, 2 TIMES DAILY, First dose on Sun05/26/25 at 0045, Until Discontinued * 0051 (Not Given - Provider: Cristina Moreau RN - Reason: Patient/family refused) * 0911 (Given - Provider: Clementina Ahumada RN) * 2103 (Given - Provider: Rosenda Davis RN) * 0846 (Given - Provider: Sneha Sims RN) * 2100 (Due) vitamin B and C (TOTAL B-C) tablet 1 tablet 1 tablet, Oral, DAILY, First dose on Sun05/26/25 at 0900, Until Discontinued * 0911 (Given - Provider: Clementina Ahumada RN) * 0846 (Given - Provider: Sneha Sims RN) ziprasidone (GEODON) capsule 40 mg 40 mg, Oral, NIGHTLY, First dose on Sun05/26/25 at 0045, Until Discontinued, May cause prolongation of QT interval. Take with food. * 0048 (Given - Provider: Cristina Moreau RN) * 2105 (Given - Provider: Rosenda Davis, RN) * 2100 (Due) Medication Order//03/2025 0.9 % sodium chloride infusion IntraVENous, at 75 mL/hr, CONTINUOUS, Starting on Sun05/26/25 at 0045, For 24 hours, Complete last bag that is running at 24 hours and then saline lock IV * 0120 (New Bag - Provider: Cristina Moreau RN) * 0120 (Rate/Dose Verify - Provider: Clementina Ahumada, [facility]) * 0738 (Paused - Provider: Clementina Ahumada, RN) * 0759 (Restarted - Provider: Clementina Ahumada, RN) * 0800 (Paused - Provider: Clementina Ahumada, RN) * 0819 (Restarted - Provider: Clementina Ahumada, RN) * 1522 (Stopped - Provider: Clementina Ahumada, [facility]) * 1522 (New Bag - Provider: Maia Lowery RN) * 1715 (Rate/Dose Verify - Provider: Clementina Ahumada, [facility]) * 0000 (Stopped - Provider: Rosenda Davis, RN) Medication Order//03/2025 0.9 % sodium chloride infusion IntraVENous, at [...] temp greater than 100.4 F (38 C), Maximumdose of acetaminophen is 4000 mg from all [...] glucagon, Starting on Sun05/26/25 at 0626, If bloodglucose fails to stabilize after 2 dextrose 10% [...] dose as instructed per system. If blood glucoseremains LESS THAN 70 mg/dL after 2 intravenous boluses start dextrose 10% at 100 mL/hour and notifyprovider. glucagon injection 1 mg 1 mg, SubCUTAneous, PRN, Starting on Sun05/26/25 at 0626, Until Discontinued, Low blood sugar, Bloodglucose LESS THAN 70 mg/dL and patient NOT ALERT or NPO and does not have IV access., After administration, attempt intravenous access and start dextrose 10% at 100 mL/hr. Repeat blood glucose in 15 minutes x 2 and notify provider. Reconstitute powder for injection by adding 1 mL of gas systems worker-supplied sterile diluent or sterile water for injection to a vial containing 1 mg of the drug, to provide solutions containing 1 mg/mL. Shake vial gently to dissolve. glucose chewable tablet 16 g 16 g (4 tablet), Oral, PRN, Starting on Sun05/26/25 at 0626, Until Discontinued, Low blood sugar, Ifblood glucose is LESS THAN 70 mg/dL and [...] RT Bronchodilator Protocol: Yes - Inpatient Protocol * 0104 (Given - Provider: Ana Barrios RCP) cawjto-qaeuukxh-lmxhece (ZENPEP) delayed release capsule 35,000 Units 35,000 [...] per patient request for pain score (7-10) * 0133 (Given - Provider: Cristina Moreau, [facility]) * 0714 (Given - Provider: Maia Lowery, [facility]) * 6662 (Given - Provider: Clementina Ahumada, [facility]) polyethylene glycol (GLYCOLAX) packet 17 g 17 g, Oral, DAILY PRN, Starting on Sun05/26/25 at 0016, Until Discontinued, Constipation, First linetherapy for constipation promethazine (PHENERGAN) tablet 25 mg 25 mg, Oral, 4 TIMES DAILY PRN, Starting on Sun05/26/25 at 0016, Until Discontinued, Nausea sodium chloride flush 0.9 % injection 5-40 mL 5-40 mL, IntraVENous, PRN, Starting on Sun05/26/25 at 001, Until Discontinued, Line Care, After every IV line use, For Line Patency: Peripheral IV = 5 mL; Midline or Central Line = 10 mL/lumen. If following IV push medication, administer flush at same rate as the IV push. Flush volume is determinedby type of infusion therapy being given. For non-viscous solutions use: Peripheral IV = 5 mL Midline or Central Line = 10 mL/lumen For viscous solutions (i.e. blood components, parenteral nutrition, contrast media, or after obtaining blood sample) use: Peripheral IV = 10 mL Midline or Central Line = 20 mL/lumen Order Group 1: cefTRIAXone (ROCEPHIN) 1,000 mg [...] Sun05/26/25 at 2300, Last dose on Sun05/28/25 [id number], Antimicrobial Indications: Pneumonia (CAP), CAP duration of therapy: Other, Other CAP Duration: 3 days Group 2: acetaminophen (TYLENOL) tablet 650 mgJump to med 650 mg, Oral, EVERY 6 HOURS PRN, Starting on Sun05/26/25 at 0016, Until Discontinued, Pain Mild (1-3) OR per patient request for pain score (4-10), Fever, For temp greater than 100.4 F (38 C), Maximumdose of acetaminophen is 4000 mg from all [...] dose as instructed per system. If blood glucoseremains LESS THAN 70 mg/dL after 2 intravenous boluses start dextrose 10% at 100 mL/hour and notifyprovider. Medication Order//06/2025 acetaminophen (TYLENOL) tablet 650 mg 650 mg, Oral, ONCE, 1 dose, On 05/30/25 at 1800, Maximum dose of acetaminophen is 4000 mg from all sources in 24 hours. * 1811 (Not Given - Provider: Martha Hopson RN - Reason: Patient/family refused - Comment: Patient refused states that tylenol does not work for him.) clonazePAM (KLONOPIN) tablet 1 mg (COMPLETED) 1 mg, Oral, Once, 1 dose, On 05/30/25 at 2300 * 2303 (Given - Provider: Iva Calix RN) clonazePAM (KLONOPIN) tablet 1 mg (COMPLETED) 1 mg, Oral, Once, 1 dose, On 05/30/25 at 2330 * 2320 (Given - Provider: Lizzy Gonzales RN) doxycycline hyclate (VIBRAMYCIN) capsule 100 mg (COMPLETED) 100 mg, Oral, ONCE, 1 dose, On 05/30/25 at 2300, Antimicrobial Indications: Pneumonia (CAP), Thismedication can interact with tube feedings (TF)- obtain MD order to manage. Recommend holding TF for 1 h before and 2 h after dose. Take 1 h before or 2 h after dairy, calcium, iron, magnesium, aluminum or zinc. * 2303 (Given - Provider: Iva Calix RN) chrjst-pktolgih-jiifsgh (ZENPEP) delayed release capsule 10,000 Units 10,000 Units, Oral, 3 TIMES DAILY WITH MEALS, First dose on 05/30/25 at 1745, Until Discontinued * 1837 (Given - Provider: Iva Calix RN) LORazepam (ATIVAN) tablet 1 mg (COMPLETED) 1 mg, Oral, ONCE, 1 dose, On 05/30/25 at 1715 * 1718 (Given - Provider: Martha Hopson RN) oxyCODONE-acetaminophen (PERCOCET) 5-325 MG per tablet 1 tablet (COMPLETED) 1 tablet, Oral, ONCE, 1 dose, On 05/30/25 at 211, Maximum dose of acetaminophen is 4000 mg from all sources in 24 hours. * 2113 (Given - Provider: Iva Calix RN) traMADol (ULTRAM) tablet 50 mg 50 mg, Oral, ONCE, 1 dose, On 05/30/25 at 1830 * 1840 (Not Given - Provider: Marleen Ramirez RN - Reason: Patient/family refused - Comment: refused; wanted stronger pain medications than the ordered tramadol; chief writer did tell physician) traMADol (ULTRAM) tablet 50 mg 50 mg, Oral, ONCE, 1 dose, On 05/30/25 at 2130 * 2138 (Not Given - Provider: Lizzy Gonzales RN - Reason: Other - Comment: Pt given Percocet for pain) Medication Order06/16//// cefdinir (OMNICEF) capsule 300 mg (COMPLETED) 300 mg, Oral, ONCE, 1 dose, On Vashti 06/18/25 at 1830, Antimicrobial Indications: Pneumonia (CAP) * 183 (Given - Provider: Jess Hackett RN) doxycycline hyclate (VIBRAMYCIN) capsule [...] dairy, calcium, iron, magnesium, aluminum or zinc. * 1831 (Given - Provider: Jess Hackett RN) morphine sulfate (PF) injection 4 mg (COMPLETED) 4 mg, IntraVENous, ONCE, 1 dose, On Vashti 06/18/25 at 1545, If oral and IV narcotics ordered, use oralfirst and only use IV if oral is ineffective or cannot take oral. Do Not give oral and IV within 1 hour of each other unless specifically ordered. * 1612 (Given - Provider: Martha Hopson RN) prochlorperazine (COMPAZINE) injection 10 mg (COMPLETED) 10 mg, IntraVENous, ONCE, 1 dose, On Vashti 06/18/25 at 1545, If administering IV push, administer at amaximum rate of 5 mg/minute. Patients should remain lying down following administration and be reassessed for relief of nausea and presence of hypotension. Patients should be assisted the first time they get up after administration. * 1615 (Given - Provider: Martha Hopson RN) sodium chloride 0.9 % bolus 1,000 mL (COMPLETED) 1,000 mL (10.6 mL/kg), IntraVENous, at 2,000 mL/hr, Administer over 30 Minutes, ONCE, On Vashti 06/18/25 at 1545, For 1 dose * 1608 (New Bag - Provider: Martha Hopson RN) * 1748 (Stopped - Provider: Martha Hopson RN) Medication Order06/16//// iopamidol (ISOVUE-370) 76 % injection 75 mL (COMPLETED) 75 mL, IntraVENous, IMG ONCE PRN, 1 dose, Starting on Vashti 06/18/25 at 1654, Until Vashti 06/18/25 at 1704, Other * 1704 (Given - Provider: Alexandrea Wilcox) Medication Order// acetaminophen (TYLENOL) tablet 650 mg (COMPLETED) 650 mg, Oral, ONCE, 1 dose, On Sun08/25/25 at 0930, Maximum dose of acetaminophen is 4000 mg from all sources in 24 hours., Pre-op (day of surgery) * 0934 (Given - Provider: Cori Wright RN) ceFAZolin (ANCEF) 2,000 mg in sterile water 20 mL IV syringe (COMPLETED) 2,000 mg, IntraVENous, CHIEF MEDICAL OFFICER TO O.R., 1 dose, On Sun08/25/25 at 0930, Antimicrobial Indications: Surgical Prophylaxis, Administer within 1 hour prior to incision. Repeat in 2 hours after initial dose if still intra-op. Administer over 5 mins. Reconstitute 2 g vial with 20 mL Sterile Water. Withdraw entire contents., Pre-op (day of surgery) * 1100 (New Bag - Provider: Mey Grover, TREASURY CONSULTANT - ENROLLMENT NURSE) dimenhyDRINATE (DRAMAMINE) tablet 50 mg (COMPLETED) 50 mg, Oral, ONCE, 1 dose, On Sun08/25/25 at 0930, Pre-op (day of surgery) * 0934 (Given - Provider: Cori Wright RN) famotidine (PEPCID) 20 MG/2ML 20 mg in sodium chloride (PF) 0.9 % 10 mL injection (COMPLETED) 20 mg, IntraVENous, ONCE, 1 dose, On Sun08/25/25 at 0930, Administer over 2 minutes., Pre-op (day of surgery) * 0934 (Given - Provider: Cori Wright, [facility]) sodium chloride flush 0.9 % injection 5-40 mL 5-40 mL, IntraVENous, EVERY 12 HOURS SCHEDULED (2 times per day), First dose on Sun08/25/25 at 2100, Until Discontinued, For Line Patency: Peripheral IV = 5 mL; Midline or Central Line = 10 mL/lumen.If following IV push medication, administer flush at same rate as the IV push. Flush volume is determined by type of infusion therapy being given. For non-viscous solutions use: Peripheral IV = 5 mL Midline or Central Line = 10 mL/lumen For viscous solutions (i.e. blood components, parenteral nutrition, contrast media, or after obtaining blood sample) use: Peripheral IV = 10 mL Midline or CentralLine = 20 mL/lumen, PACU only * 2100 (Due) Medication Order// lactated ringers infusion IntraVENous, at 100 mL/hr, CONTINUOUS, Starting on Sun08/25/25 at 0930, Pre-op (day of surgery) * 0933 (New Bag - Provider: Cori Wright RN) * 1049 (NoRateChange - Provider: NATE Hubbard CRNA) * 1141 (Paused - Provider: NATE Hubbard CRNA - Comment: Switch to gravity) * 1142 (Restarted - Provider: NATE Hubbard CRNA) Medication Order// 0.9 % sodium chloride infusion IntraVENous, at 5-250 mL/hr, PRN, if patient receiving piggyback infusions and maintenance fluids are not ordered, Starting on Sun08/25/25 at 1148, For piggyback infusion, administer at same rate as piggyback for a total of 25 mL. Enter 25 mL into dose field and piggyback rate into rate field of order. If piggyback is infusing at a rate less than 100 mL/hr, enter 25 mL into dose field and 100 mL/hr into rate field of order., PACU only HYDROmorphone HCl PF (DILAUDID) injection 0.25 mg 0.25 mg, IntraVENous, EVERY 5 MIN PRN, 2 doses, Starting on Sun08/25/25 at 1148, Until Discontinued, Pain Moderate (4-6) OR per patient request for pain score (7-10), For Phase I. If Phase II oral narcotics have been administered in the last 60 minutes, do not administer IV narcotics unless specifically approved by provider., PACU only * 1201 (Given - Provider: Che Buck RN) lidocaine (XYLOCAINE) 2 % uro-jet (CANCELED) PRN, Starting on Sun08/25/25 at 1118, Intra-op * 1118 (Given - Provider: Octavio Chatterjee MD) naloxone 0.4 mg in 10 mL sodium chloride syringe IntraVENous, PRN, Opioid Reversal, Starting on Sun08/25/25 at 1148, PRN if respiratory rate is lessthan 6/min and patient is difficult to arouse then notify physician STAT. Mix 9 mL of sodium chloride 0.9% with 0.4 mg (1 mL) of naloxone (NARCAN) in 10 mL syringe. (Note: dilution is 0.04 mg/mL) Give 0.08 mg (2 mL of special dilution), slow IV push, repeat up to 0.4 mg (10 mL) or until patient is responsive to physical stimulation and respiratory rate is equal to or greater than 6 breaths/min. Continue to observe, if no response within 3 minutes of administration of 0.4 mg (10 mL) total, repeat dose (0.4 mg as administered previously). Concentration 0.04 mg/mL, PACU only oxyCODONE (ROXICODONE) immediate release tablet 5 mg (COMPLETED) 5 mg, Oral, ONCE PRN, 1 dose, Starting on Sun08/25/25 at 1148, Until Sun08/25/25 at 1235, Pain Moderate (4-6) OR per patient request for pain score (7-10), Pain Severe (7-10), PHASE II, PACU only * 1235 (Given - Provider: Ángel Bazan RN) sodium chloride flush 0.9 % injection 5-40 mL 5-40 mL, IntraVENous, PRN, Starting on Sun08/25/25 at 1148, Until Discontinued, Line Care, After every IV [...] For viscous solutions (i.e. blood components, parenteral nutrition,contrast media, or after obtaining blood sample) use: Peripheral IV = 10 mL Midline or Central Line= 20 mL/lumen, PACU only Source Comments (unrecognize d section and content) In the event this informatio n is protected by the Federal Confidentiality of Alcohol and Drug Abuse Patient Records regulations: The Federal rules restrict any use of the information to criminally investigate or prosecute any alcohol or drug abuse patient.[facility]In the event this information is protected by the Federal Confidentiality of Alcohol and Drug Abuse Patient Records regulations: The Federal rules restrict any use of the information to criminally investigate or prosecute any alcohol or drug abuse patient.[facility] HospitalIn the event this information is protected by the Federal Confidentiality of Alcohol and Drug Abuse Patient Records regulations: The Federal rules restrict any use of the information to criminally investigate or prosecute any alcohol or drug abuse patient.[facility] HospitalIn the event this information is protected by the Federal Confidentiality of Alcohol and Drug Abuse Patient Records regulations: The Federal rules restrict any use of the information to criminally investigate or prosecute any alcohol or drug abuse patient.[facility] HospitalIn the event this information is protected by the Federal Confidentiality of Alcohol and Drug Abuse Patient Records regulations: The Federal rules restrict any use of the information to criminally investigate or prosecute any alcohol or drug abuse patient.[facility] HospitalIn the event this information is protected by the Federal Confidentiality of Alcohol and Drug Abuse Patient Records regulations: The Federal rules restrict any use of the information to criminally investigate or prosecute any alcohol or drug abuse patient.[facility] HospitalIn the event this information is protected by the Federal Confidentiality of Alcohol and Drug Abuse Patient Records regulations: The Federal rules restrict any use of the information to criminally investigate or prosecute any alcohol or drug abuse patient.[facility] HospitalIn the event this information is protected by the Federal Confidentiality of Alcohol and Drug Abuse Patient Records regulations: The Federal rules restrict any use of the information to criminally investigate or prosecute any alcohol or drug abuse patient.[facility] HospitalIn the event this information is protected by the Federal Confidentiality of Alcohol and Drug Abuse Patient Records regulations: The Federal rules restrict any use of the information to criminally investigate or prosecute any alcohol or drug abuse patient.[facility] HospitalIn the event this information is protected by the Federal Confidentiality of Alcohol and Drug Abuse Patient Records regulations: The Federal rules restrict any use of the information to criminally investigate or prosecute any alcohol or drug abuse patient.[facility] HospitalIn the event this information is protected by the Federal Confidentiality of Alcohol and Drug Abuse Patient Records regulations: The Federal rules restrict any use of the information to criminally investigate or prosecute any alcohol or drug abuse patient.[facility] HospitalIn the event this information is protected by the Federal Confidentiality of Alcohol and Drug Abuse Patient Records regulations: The Federal rules restrict any use of the information to criminally investigate or prosecute any alcohol or drug abuse patient.[facility] HospitalIn the event this information is protected by the Federal Confidentiality of Alcohol and Drug Abuse Patient Records regulations: The Federal rules restrict any use of the information to criminally investigate or prosecute any alcohol or drug abuse patient.[facility] HospitalIn the event this information is protected by the Federal Confidentiality of Alcohol and Drug Abuse Patient Records regulations: The Federal rules restrict any use of the information to criminally investigate or prosecute any alcohol or drug abuse patient.[facility] HospitalIn the event this information is protected by the Federal Confidentiality of Alcohol and Drug Abuse Patient Records regulations: The Federal rules restrict any use of the information to criminally investigate or prosecute any alcohol or drug abuse patient.[facility] HospitalIn the event this information is protected by the Federal Confidentiality of Alcohol and Drug Abuse Patient Records regulations: The Federal rules restrict any use of the information to criminally investigate or prosecute any alcohol or drug abuse patient.[facility] HospitalIn the event this information is protected by the Federal Confidentiality of Alcohol and Drug Abuse Patient Records regulations: The Federal rules restrict any use of the information to criminally investigate or prosecute any alcohol or drug abuse patient.[facility] HospitalIn the event this information is protected by the Federal Confidentiality of Alcohol and Drug Abuse Patient Records regulations: The Federal rules restrict any use of the information to criminally investigate or prosecute any alcohol or drug abuse patient.[facility] HospitalIn the event this information is protected by the Federal Confidentiality of Alcohol and Drug Abuse Patient Records regulations: The Federal rules restrict any use of the information to criminally investigate or prosecute any alcohol or drug abuse patient.[facility] HospitalIn the event this information is protected by the Federal Confidentiality of Alcohol and Drug Abuse Patient Records regulations: The Federal rules restrict any use of the information to criminally investigate or prosecute any alcohol or drug abuse patient.[facility] HospitalIn the event this information is protected by the Federal Confidentiality of Alcohol and Drug Abuse Patient Records regulations: The Federal rules restrict any use of the information to criminally investigate or prosecute any alcohol or drug abuse patient.[facility] HospitalIn the event this information is protected by the Federal Confidentiality of Alcohol and Drug Abuse Patient Records regulations: The Federal rules restrict any use of the information to criminally investigate or prosecute any alcohol or drug abuse patient.[facility] HospitalIn the event this information is protected by the Federal Confidentiality of Alcohol and Drug Abuse Patient Records regulations: The Federal rules restrict any use of the information to criminally investigate or prosecute any alcohol or drug abuse patient.[facility] HospitalIn the event this information is protected by the Federal Confidentiality of Alcohol and Drug Abuse Patient Records regulations: The Federal rules restrict any use of the information to criminally investigate or prosecute any alcohol or drug abuse patient.[facility] HospitalIn the event this information is protected by the Federal Confidentiality of Alcohol and Drug Abuse Patient Records regulations: The Federal rules restrict any use of the information to criminally investigate or prosecute any alcohol or drug abuse patient.[facility] HospitalIn the event this information is protected by the Federal Confidentiality of Alcohol and Drug Abuse Patient Records regulations: The Federal rules restrict any use of the information to criminally investigate or prosecute any alcohol or drug abuse patient.[facility] HospitalIn the event this information is protected by the Federal Confidentiality of Alcohol and Drug Abuse Patient Records regulations: The Federal rules restrict any use of the information to criminally investigate or prosecute any alcohol or drug abuse patient.[facility] HospitalIn the event this information is protected by the Federal Confidentiality of Alcohol and Drug Abuse Patient Records regulations: The Federal rules restrict any use of the information to criminally investigate or prosecute any alcohol or drug abuse patient.[facility] HospitalIn the event this information is protected by the Federal Confidentiality of Alcohol and Drug Abuse Patient Records regulations: The Federal rules restrict any use of the information to criminally investigate or prosecute any alcohol or drug abuse patient.[facility] HospitalIn the event this information is protected by the Federal Confidentiality of Alcohol and Drug Abuse Patient Records regulations: The Federal rules restrict any use of the information to criminally investigate or prosecute any alcohol or drug abuse patient.[facility] HospitalIn the event this information is protected by the Federal Confidentiality of Alcohol and Drug Abuse Patient Records regulations: The Federal rules restrict any use of the information to criminally investigate or prosecute any alcohol or drug abuse patient.[facility] HospitalIn the event this information is protected by the Federal Confidentiality of Alcohol and Drug Abuse Patient Records regulations: The Federal rules restrict any use of the information to criminally investigate or prosecute any alcohol or drug abuse patient.[facility] HospitalIn the event this information is protected by the Federal Confidentiality of Alcohol and Drug Abuse Patient Records regulations: The Federal rules restrict any use of the information to criminally investigate or prosecute any alcohol or drug abuse patient.[facility] HospitalIn the event this information is protected by the Federal Confidentiality of Alcohol and Drug Abuse Patient Records regulations: The Federal rules restrict any use of the information to criminally investigate or prosecute any alcohol or drug abuse patient.[facility] HospitalIn the event this information is protected by the Federal Confidentiality of Alcohol and Drug Abuse Patient Records regulations: The Federal rules restrict any use of the information to criminally investigate or prosecute any alcohol or drug abuse patient.[facility] HospitalIn the event this information is protected by the Federal Confidentiality of Alcohol and Drug Abuse Patient Records regulations: The Federal rules restrict any use of the information to criminally investigate or prosecute any alcohol or drug abuse patient.[facility] HospitalIn the event this information is protected by the Federal Confidentiality of Alcohol and Drug Abuse Patient Records regulations: The Federal rules restrict any use of the information to criminally investigate or prosecute any alcohol or drug abuse patient.[facility] HospitalIn the event this information is protected by the Federal Confidentiality of Alcohol and Drug Abuse Patient Records regulations: The Federal rules restrict any use of the information to criminally investigate or prosecute any alcohol or drug abuse patient.[facility] HospitalIn the event this information is protected by the Federal Confidentiality of Alcohol and Drug Abuse Patient Records regulations: The Federal rules restrict any use of the information to criminally investigate or prosecute any alcohol or drug abuse patient.[facility] HospitalIn the event this information is protected by the Federal Confidentiality of Alcohol and Drug Abuse Patient Records regulations: The Federal rules restrict any use of the information to criminally investigate or prosecute any alcohol or drug abuse patient.[facility] HospitalIn the event this information is protected by the Federal Confidentiality of Alcohol and Drug Abuse Patient Records regulations: The Federal rules restrict any use of the information to criminally investigate or prosecute any alcohol or drug abuse patient.[facility] HospitalIn the event this information is protected by the Federal Confidentiality of Alcohol and Drug Abuse Patient Records regulations: The Federal rules restrict any use of the information to criminally investigate or prosecute any alcohol or drug abuse patient.[facility] HospitalIn the event this information is protected by the Federal Confidentiality of Alcohol and Drug Abuse Patient Records regulations: The Federal rules restrict any use of the information to criminally investigate or prosecute any alcohol or drug abuse patient.[facility] HospitalIn the event this information is protected by the Federal Confidentiality of Alcohol and Drug Abuse Patient Records regulations: The Federal rules restrict any use of the information to criminally investigate or prosecute any alcohol or drug abuse patient.[facility] HospitalIn the event this information is protected by the Federal Confidentiality of Alcohol and Drug Abuse Patient Records regulations: The Federal rules restrict any use of the information to criminally investigate or prosecute any alcohol or drug abuse patient.[facility] HospitalIn the event this information is protected by the Federal Confidentiality of Alcohol and Drug Abuse Patient Records regulations: The Federal rules restrict any use of the information to criminally investigate or prosecute any alcohol or drug abuse patient.[facility] HospitalIn the event this information is protected by the Federal Confidentiality of Alcohol and Drug Abuse Patient Records regulations: The Federal rules restrict any use of the information to criminally investigate or prosecute any alcohol or drug abuse patient.[facility] HospitalIn the event this information is protected by the Federal Confidentiality of Alcohol and Drug Abuse Patient Records regulations: The Federal rules restrict any use of the information to criminally investigate or prosecute any alcohol or drug abuse patient.[facility] HospitalIn the event this information is protected by the Federal Confidentiality of Alcohol and Drug Abuse Patient Records regulations: The Federal rules restrict any use of the information to criminally investigate or prosecute any alcohol or drug abuse patient.[facility] HospitalIn the event this information is protected by the Federal Confidentiality of Alcohol and Drug Abuse Patient Records regulations: The Federal rules restrict any use of the information to criminally investigate or prosecute any alcohol or drug abuse patient.[facility] HospitalIn the event this information is protected by the Federal Confidentiality of Alcohol and Drug Abuse Patient Records regulations: The Federal rules restrict any use of the information to criminally investigate or prosecute any alcohol or drug abuse patient.[facility] HospitalIn the event this information is protected by the Federal Confidentiality of Alcohol and Drug Abuse Patient Records regulations: The Federal rules restrict any use of the information to criminally investigate or prosecute any alcohol or drug abuse patient.[facility] HospitalIn the event this information is protected by the Federal Confidentiality of Alcohol and Drug Abuse Patient Records regulations: The Federal rules restrict any use of the information to criminally investigate or prosecute any alcohol or drug abuse patient.[facility] HospitalIn the event this information is protected by the Federal Confidentiality of Alcohol and Drug Abuse Patient Records regulations: The Federal rules restrict any use of the information to criminally investigate or prosecute any alcohol or drug abuse patient.[facility] HospitalIn the event this information is protected by the Federal Confidentiality of Alcohol and Drug Abuse Patient Records regulations: The Federal rules restrict any use of the information to criminally investigate or prosecute any alcohol or drug abuse patient.[facility] HospitalIn the event this information is protected by the Federal Confidentiality of Alcohol and Drug Abuse Patient Records regulations: The Federal rules restrict any use of the information to criminally investigate or prosecute any alcohol or drug abuse patient.[facility] HospitalIn the event this information is protected by the Federal Confidentiality of Alcohol and Drug Abuse Patient Records regulations: The Federal rules restrict any use of the information to criminally investigate or prosecute any alcohol or drug abuse patient.[facility] HospitalIn the event this information is protected by the Federal Confidentiality of Alcohol and Drug Abuse Patient Records regulations: The Federal rules restrict any use of the information to criminally investigate or prosecute any alcohol or drug abuse patient.[facility] HospitalIn the event this information is protected by the Federal Confidentiality of Alcohol and Drug Abuse Patient Records regulations: The Federal rules restrict any use of the information to criminally investigate or prosecute any alcohol or drug abuse patient.[facility] HospitalIn the event this information is protected by the Federal Confidentiality of Alcohol and Drug Abuse Patient Records regulations: The Federal rules restrict any use of the information to criminally investigate or prosecute any alcohol or drug abuse patient.[facility] HospitalIn the event this information is protected by the Federal Confidentiality of Alcohol and Drug Abuse Patient Records regulations: The Federal rules restrict any use of the information to criminally investigate or prosecute any alcohol or drug abuse patient.[facility] Ordered Prescriptions (unrec ognized section and content) PrescriptionSigDispensedRefillsStart DateEnd orphenadrine (NORFLEX) 100 MG extended release tablet Take 1 tablet by mouth 2 times daily for 10 days 20 tablet /rescriptionSigDispensedRefillsStart DateEnd HYDROcodone-acetaminophen (NORCO) 5-325 MG per tablet Indications:Left-sided chest wall pain,Rib contusion, left, sequelaTake 1 tablet by mouth every 8 hours as needed for Pain (moderate severe) for up to 3 days. Intended supply: 7 days. Take lowest dose possible to manage pain Max Daily Amount: 3 tablets 9 tablet /rescriptionSigDispensedRefillsStart DateEnd ketorolac (TORADOL) 10 MG tablet Take 1 tablet by mouth every 6 hours as needed for Pain 12 tablet /rescriptionSigDispensedRefillsStart DateEnd methocarbamol (ROBAXIN) 500 MG tablet Take 1 tablet by mouth 4 times daily for 7 days 28 tablet PrescriptionSigDispensedRefillsStart DateEnd cyclobenzaprine (FLEXERIL) 5 MG tablet Take 1 tablet by mouth 2 times daily as needed for Muscle spasms 10 tablet lidocaine 4 % external patch Place 1 patch onto the skin daily 30 patch PrescriptionSigDispense QuantityRefillsLast FilledStart Date End Date doxycycline hyclate (VIBRAMYCIN) 100 MG capsule Take 1 capsule by mouth every 12 hours for 15 doses 15 capsule / amoxicillin-clavulanate (AUGMENTIN) 875-125 MG per tablet Take 1 tablet by mouth every 12 hours for 15 doses 15 tablet PrescriptionSigDispense QuantityRefillsLast FilledStart Date End Date doxycycline hyclate (VIBRA-TABS) 100 MG tablet Take 1 tablet by mouth 2 times daily for 10 days 20 tablet cefdinir (OMNICEF) 300 MG capsule Take 1 capsule by mouth 2 times daily for 10 days 20 capsule 509/04/2025 FOR RECORDS PERTAINING TO PATIENTS WHO ARE [...] BE BASED ON THE PRIMARY CLINICAL RECORDS. 1[facility]. provides no warranty or guarantee of the accuracy or completeness of information in this document.
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
[2025-09-21 14:34] LABS: Hematocrit 41.4 % (42.0-54.0); Hemoglobin 13.2 g/dL (14.0-18.0); Immature Granulocytes Abs Auto 0.05 10^3/uL (0.00-0.03); Immature Granulocytes Pct Auto 0.4 % (0.0-0.5); Lymphocytes Absolute Auto 3.0 10^3/uL (1.2-3.8); Mean Corpuscular HGB Conc 31.9 g/dL (29.9-35.2); Mean Corpuscular Hemoglobin 28.7 pg (25.9-34.0); Mean Corpuscular Volume 90.0 fL (80.0-94.0); Platelet Count 560 10^3/uL (150-450); Red Blood Count 4.60 10^6/uL (4.70-6.10); White Blood Count 11.4 10^3/uL (4.0-11.0)
[2025-09-21 14:40] LABS: Anion Gap 10.8; Blood Urea Nitrogen 11.0 mg/dL (7.0-18.0); Calcium 9.7 mg/dL (8.5-10.1); Carbon Dioxide 33.8 mmol/L (21.0-32.0); Chloride 100 mmol/L (98-107); Estimated GFR (African America >60 (>=60 mL/min/1.73m^2); Estimated GFR (Non-African Ame >60 (>=60 mL/min/1.73m^2); Glucose 140 mg/dL (74-106); Potassium 4.6 mmol/L (3.5-5.1); Sodium 140 mmol/L (136-145)
== END 2025-09-21 13:18 | disposition home or self-care (01) ==
PROVIDERS: PCP Nurse Practitioner Family; Visit Provider Anesthesiology
DX: Z01.812 Encounter for preprocedural laboratory examination (principal); Z01.818 Encounter for other preprocedural examination; P96.1 Neonatal withdrawal symptoms from maternal use of drugs of addiction
CPT/HCPCS: 36415; 80048; 85025; G0463